=== PATIENT | male | born 1935 | race Caucasian/White ===

== ENCOUNTER → 2017-06-29 08:29 | Outpatient (CLI) | payer MEDICARE, SELFPAY ==
--- NOTE | 2017-06-29 08:35 | RAD_ITS ---
STUDY: X-RAY - ESOPHAGUS (BARIUM SWALLOW) WITH FLUOROSCOPY REASON FOR EXAM: Male, 82 years old. Dysphagia for solids. TECHNIQUE: 11 view(s) of the esophagus were obtained following swallowing of barium. FLUOROSCOPY TIME (if supplied): (0:36) minutes/seconds COMPARISON: None. FINDINGS: There is no demonstrated esophageal foreign body. There is no demonstrated stricture or mucosal abnormality. Normal gastroesophageal junction, without a demonstrated hiatal hernia. The patient ingest a 12 mm tablet of barium without any difficulty. There is mesial axial rotation of the stomach. There is atherosclerotic tortuosity of the aortic arch and descending thoracic aorta. Normal visualized pulmonary parenchyma. Normal visualized osseous structures of the thorax. RAD/Esophagus Only IMPRESSION: Normal plain film x-ray examination (barium swallow) of the esophagus. Electronically Signed: Samuel Brambila MD at 10:36 EDT Tel [phone], Service support ,
== END ==
PROVIDERS: Family Provider Student in an Organized Health Care Education/Training Program; PCP Student in an Organized Health Care Education/Training Program; Visit Provider Internal Medicine Gastroenterology
DX: K22.2 Esophageal obstruction (principal)
CPT/HCPCS: 74220

== ENCOUNTER 2019-09-05 10:10 | Observation (INO) | payer MEDICARE, SELFPAY ==
[2019-09-05] VITALS (16 sets, daily range): BP systolic 125–155; BP diastolic 84–134; PULSE 70–143; RESP 15–21; TEMP 36.4–36.8; O2SAT 94–98; BMI 28.5; BMI 28.3
--- NOTE | 2019-09-05 10:17 | NURSING ---
NO OLD EKGS
--- NOTE | 2019-09-05 10:18 | EKG12_ITS ---
Test Reason : Blood Pressure : / mmHG Vent. Rate : 140 BPM Atrial Rate : 156 BPM P-R Int : 000 ms QRS Dur : 140 ms QT Int : 340 ms P-R-T Axes : 000 090 -36 degrees QTc Int : 519 ms Atrial fibrillation with rapid ventricular response Right bundle branch block Possible Inferior infarct , age undetermined Abnormal ECG Confirmed by KALE GALDAMEZ, SVETA ([id number]), assistant production editor KYLEE BOSE ([id number]) on 09/10/2019 11:05:39 AM Referred By: TIOM Confirmed By:SVETA HENLEY MD
[2019-09-05] MEDS: Aspirin 81 MG TAB.CHEW 324 MG PO (10:26)
[2019-09-05] MEDS: dilTIAZem 25 MG/5 ML Vial 20 MG IV BOLUS (10:26)
[2019-09-05 10:27] LABS: Absolute Lymphocyte Count 1.68 X10^3/uL (0.83-4.51); Absolute Neutrophil Count 5.5 X10^3/uL (2.0-7.7); Basophil# 0.05 X10^3/uL; Basophil% 0.6 % (0-1); Eosinophil# 0.28 X10^3/uL; Eosinophils% 3.3 % (0-5); Hematocrit 49.4 % (40-54); Hemoglobin 16.9 g/dL (13.0-16.5); Lymphocyte # 1.68 X10^3/ul (4.0); Lymphocyte % 19.9 % (19-41); Mean Corp Hgb Conc 34.2 g/dL (32-36); Mean Corpuscular Volume 87.6 fL (80-94); Monocyte# 0.91 X10^3/uL; Monocyte% 10.8 % (0-10); NRBC Flagged by Analyzer 0 % (0-5); Neutrophil # 5.48 X10^3/uL (2.7-7.7); Platelet Count 222 K/mm3 (150-450); RBC Distribution Width CV 13.6 % (11.6-14.6); Red Blood Count 5.64 M/mm3 (4.6-6.2); White Blood Count 8.4 K/mm3 (4.4-11.0)
--- NOTE | 2019-09-05 10:35 | RAD_ITS ---
STUDY: X-RAY CHEST REASON FOR EXAM: Male, 84 years old. AFIB. PT STATES THAT HE NOTICED PALPITATIONS FOR A and quot; COUPLE OF EVENINGS and quot;. PT DX WITH and quot;VALLEY FEVER and quot; TECHNIQUE: Single AP portable view of the chest. COMPARISON: None. FINDINGS: EKG electrodes are seen. The lungs are clear and expanded. There is no demonstrated pleural abnormality. There is mild cardiac enlargement. Normal mediastinum and yesica. Normal visualized pulmonary arteries. Normal visualized aortic arch and descending thoracic aorta. There are diffuse degenerative changes of the visualized thoracic spine. There is degenerative osteoarthritis of the bilateral shoulders. Prior right rotator cuff surgery. There is no demonstrated abnormality of the visualized soft tissue structures of the upper abdomen. RAD/Chest 1 View (Portable) IMPRESSION: Mild cardiomegaly. Electronically Signed: Samuel Brambila, at 11:08 EDT , Service support ,
[2019-09-05 10:56] LABS: Anion Gap 5 (5-15); BUN 19 mg/dL (7-18); BUN/Creat Ratio 15.4 RATIO (10-20); Calcium,Total 9.6 mg/dL (8.5-10.1); Chloride 105 mmol/L (98-107); Creatinine, Serum 1.23 mg/dL (0.70-1.30); EST Glomerular Filtration Rate 60 mL/min (>60); Est Glom Filt Rate - Afr Amer 72 mL/min (>60); Estimated Creatinine Clearance 51.43 ml/min; Glucose 114 mg/dL (74-106); Magnesium 2.3 mg/dL (1.6-2.6); Potassium 4.2 mmol/L (3.5-5.1); Sodium Level 139 mmol/L (136-145); Thyroid Stim Hormone (TSH) 2.52 uIU/mL (0.358-3.74)
--- NOTE | 2019-09-05 11:46 | ED.VISSUMM ---
- ER Visit Summary Date of Service: 09/05/19 Chief Complaint: Atrial fibrillation History of Present Illness: The patient is a [address] Aguilar. 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 He was seen in the office today and found to have atrial fibrillation and sent to the emerge department for evaluation. Patient has never had this before. He denies any palpitations. He denies any chest pain or shortness of breath. Reports he has a chronic cough that is unchanged. Physical Examination: Vitals: Stable. Afebrile. General: Well-nourished and well-developed. Head: Normocephalic atraumatic. Neck: Supple, no lymphadenopathy. No JVD. Nontender. Cardiovascular: Tachycardic irregular rhythm. No murmurs. Respiratory: No respiratory distress. Clear to auscultation bilaterally. Abdominal: Soft, nontender, nondistended, normal bowel sounds. No guarding, rebound, or peritoneal signs. Back: Nontender. Extremities: Nontender, no edema. Skin: Normal color, no rash. Neurologic: Alert and oriented ?3. Cranial nerves II through XII are intact. Normal strength and sensation. Psych: Normal affect. Test Results: EKG is A. fib with right bundle branch block rate of 140. Troponin is negative. Chem-7 shows a BUN of 19 glucose 114. TSH 2.52. CBC shows a hemoglobin 16.9 monocytes of 11. Clinical Impression(s) from Imaging Studies Chest X-Ray 09/05/19 10:35 IMPRESSION: Mild cardiomegaly. Electronically Signed: Samuel Brambila, at 11:08 EDT , Service support , Emergency Department Course and Treatment: Patient was given aspirin p.o. He was given Cardizem IV. His rate has come down in the 70s and he is resting comfortably. Treatment Plan: Patient is discussed Dr. Mendoza. He will be admitted to the hospital for further evaluation treatment. Disposition: Admitted in improved condition. Impression: 1. Atrial fibrillation with RVR, new onset. 2. Critical care time 30 minutes. This note was generated with Kixeration software. It may contain incorrect words, spelling, and punctuation that were not noted in review of the chart prior to signing ED Disposition - Plan for ED Patient: Disposition: Acute Care Hospital [facility] [place] [facility] Referrals: Dipak Aguilar DO [Primary Care Provider] -
--- NOTE | 2019-09-05 13:01 | NURSING ---
PCU OBS NEW ONSET AFIB TERELETSKY
[2019-09-05] MEDS: Metoprolol Tartrate 50 MG Tablet PO ×3 (13:17→21:21)
--- NOTE | 2019-09-05 14:07 | ECHOD_ITS ---
Reason For Study: AFIB/FLUTTER Procedure This was a 2D Doppler, Color Flow transthoracic echocardiogram. Exam performed portable in patient room. Left Ventricle Normal LV size. The estimated ejection fraction is 65 %. Diastolic function is indeterminate. No regional wall motion abnormalities noted. Right Ventricle Normal RV size. Normal systolic function. Atria The left atrium is mildly enlarged. The right atrium is mildly enlarged. No doppler evidence for ASD. Mitral Valve There is no mitral valve stenosis. Trivial mitral valve insufficiency. Tricuspid Valve There is no tricuspid stenosis. Mild tricuspid valve insufficiency. Pulmonary artery systolic pressure is 40 mmHg. Aortic Valve Trisinus/trileaflet aortic valve. There is no aortic stenosis. No aortic valve insufficiency. Pulmonic Valve There is no pulmonic valvular stenosis. No pulmonic valve insufficiency. Great Vessels Normal aortic root. Pericardium/Pleural No pericardial effusion. MMode/2D Measurements & Calculations LVIDd: 4.5 cm IVSd: 1.5 cm Ao root diam: 3.5 cm LVIDs: 3.5 cm LVPWd: 1.4 cm RVDd: 3.4 cm FS: 23.8 % LAV(MOD-bp): 82.9 ml LA A4 area: 25.3 cm2 LA dimension(2D): 4.2 cm LAV(MOD-bp) Indexed: 37.4 ml/m2 LAV(MOD-sp2): 87.4 ml LAV(MOD-sp4): 78.3 ml RA A4 area: 19.5 cm2 Time Measurements MV dec time: 0.19 sec Doppler Measurements & Calculations MV E max swapna: 109.0 cm/sec Ao V2 max: 78.7 cm/sec LV V1 max: 74.7 cm/sec Ao max P.5 mmHg LV V1 max P.3 mmHg PA V2 max: 108.9 cm/sec TR max swapna: 275.9 cm/sec TR max P.5 mmHg Interpretation Summary Diastolic function is indeterminate. The left atrium is mildly enlarged. The right atrium is mildly enlarged. Trivial mitral valve insufficiency. Mild tricuspid valve insufficiency. The estimated ejection fraction is 65 %. Ordering Physician: Thien Mendoza Referring Physician: ALFA BORJA Performed By: Claudette Duncan, ANUPAMA, RVT
--- NOTE | 2019-09-05 14:45 | HP.PCM_ITS ---
Problem List (1) Atrial fibrillation with RVR Status: Acute (2) Histoplasmosis Status: Chronic (3) GERD (gastroesophageal reflux disease) Status: Chronic (4) History of skin cancer Status: Chronic (5) Solar keratosis Status: Chronic History of Present Illness Date of Admission: 09/05/19 Chief Complaint: abnormal heart rate The patient is a 84 year old M with pmhx of histoplasmosis, skin cancer, GERD, solar keratosis, who presented to the ER with irregular heart rate. The patient has been in his normal state of health the past two weeks however two days ago his apple watch read that he had irregular heart rate. It persisted today so he kvng to the ER. He was found to have Afib RVR rate in the 40s. He was given a bolus of IV cardizem and now his rate is now in the 70s however still afib. He has no history of A. fib. He has no history of heart disease. He had a stress test about 40 years ago that was negative. He has had no other cardiac work-up. He has no chest pain, pressure, tightness, heaviness, palpitations, racing heart. He says he has some chronic shortness of breath and chronic cough due to history of histoplasmosis that occurred about a year ago when he visited [place]. He does report a change in his taste and smell in the last 2 weeks noting specifically that everything tastes tinny. No fevers or chills, No PRINGLE, body aches, or fatigue, no nausea vomiting or diarrhea. Patient states he is otherwise been in normal state of health. [] Past Medical History Past Medical History (Chronic Problems): Chronic Problems Histoplasmosis (Chronic) GERD (gastroesophageal reflux disease) (Chronic) History of skin cancer (Chronic) Solar keratosis (Chronic) Burn scar (Chronic) Allergies No Known Allergies Allergy (Verified 10/11/13 20:26) Home Medications: Ambulatory Orders Medication Instructions Recorded Omeprazole [Prilosec] 40 mg PO DAILY 07/22/15 Albuterol Sulfate [Proair 1 puff PO Q6H 09/05/19 Respiclick] Budesonide/Formoterol 160/4.5 2 puff PO BID 09/05/19 [Symbicort 160/4.5 Mcg Inhaler (SP)] Fish Oil 1 tab PO DAILY 09/05/19 Multivitamin 1 tab PO QWEEK 09/05/19 Surgical History: total hip arthroplasty, tonsillectomy, - Psychiatric History: No pertinent psych hx Lives: Spouse/ Significant Other Smoking Status: Former smoker Tobacco Use: Cigarettes Alcohol: None Drugs: None - *Family History Maternal History Items: Cancer - breast Paternal History Items: Cancer - gi cancer Review of Systems Constitutional: Denies: Chills, Fever, Weakness, Weight Change, Fatigue Eyes: Denies: Blurred vision, Double vision, Vision Change HEENT: Reports: - - taste and smell change. Denies: Head Aches, Sinus Congestion, Sinus Drainage Cardiovascular: Denies: Chest Pain, Palpitations Respiratory: Reports: Cough - chronic. Denies: Shortness of Breath, Shortness of breath at rest, Sputum production, Wheezing Gastrointestinal: Denies: Abdominal Pain, Diarrhea, Nausea, Vomiting Genitourinary: Denies: Dysuria Musculoskeletal: Denies: Joint Pain, Joint Tenderness Skin: Denies: Rash, Wounds Neurological: Denies: Numbness, Tingling, Focal weakness Psychiatric: Denies: Anxiety, Depression, Homicidal Ideations, Suicidal Ideations Hematologic/ Lymphatic: Denies: Easy Bruising, Easy Bleeding VTE Information - Inpt Only VTE Present on Admission: No VTE Mechan Device Prophylaxis: None VTE Pharm Prophylaxis ordered?: Yes Patient Problems: Active and Suspected Problems Atrial fibrillation with RVR (Acute) - Physical Exam Vitals/I&O's: Vital Signs Temp Pulse Resp BP Pulse Ox 98.3 F 78 18 140/89 H 98 09/05/19 14:20 09/05/19 14:20 09/05/19 14:20 09/05/19 14:20 09/05/19 14:20 Oxygen Flow Rate (L/min) 2 Oxygen Delivery Method Room Air Weight: 214 lb 11.684 oz Body Mass Index (BMI) 28.3 General: Alert, Oriented x3, Cooperative HEENT: Atraumatic, PERRLA, EOMI, Normocephalic Neck: Supple, No JVD, Negative Carotid Bruits Lungs: Clear to auscultation, Normal air movement Cardiovascular: No murmurs, Irregular Rate Abdomen: Bowel Sounds Present, Soft, Non Tender Extremities: No edema, Capillary Refill Less than 3 Seconds Skin: No rashes, No breakdown Musculoskeletal: No Tenderness to Palpation of Joints or Extremities Neurological: Cranial nerves II-XII grossly intact Psych/Mental Status: Normal Affect, Appropriate, Alert and oriented to time, place, person, mood and affect Laboratory Results 09/05/19 10:18: WBC 8.4, RBC 5.64, Hgb 16.9 H, Hct 49.4, MCV 87.6, MCH 30.0, MCHC 34.2, RDW Std Deviation 43.0, RDW Coeff of Pollo 13.6, Plt Count 222, MPV 10.0, Immature Gran % (Auto) 0.400, Neut % (Auto) 65.0, Lymph % (Auto) 19.9, [place] % (Auto) 10.8 H, Eos % (Auto) 3.3, Baso % (Auto) 0.6, Absolute Neuts (auto) 5.5, Absolute Lymphs (auto) 1.68, Nucleated RBC % 0 09/05/19 10:18: Sodium 139, Potassium 4.2, Chloride 105, Carbon Dioxide 29.0, Anion Gap 5, BUN 19 H, Creatinine 1.23, Estim Creat Clear Calc 51.43, Est GFR (MDRD) Af Amer 72, Est GFR (MDRD) Non-Af 60, BUN/Creatinine Ratio 15.4, Glucose 114 H, Calcium 9.6, Magnesium 2.3, Troponin I < 0.015, TSH 2.52 Current Medications Acetaminophen (Tylenol) 650 mg PO Q6H PRN PRN PRN Reason: Pain Score 1-10/Temp > 100.7 F Albuterol Sulfate (Ventolin Aerosols) 2.5 mg INHALATION Q6HWA.RT [facility] Apixaban (Eliquis) 5 mg PO BID [facility] Budesonide (Pulmicort Aerosol) 0.5 mg INHALATION BID.RT [facility] Metoprolol Tartrate (Lopressor (Beta Lana)) 50 mg PO BID [facility] Pantoprazole Sodium (Protonix) 40 mg PO DAILY [facility] Sodium Chloride () 10 - 40 ml IV UD PRN PRN Reason: SALINE FLUSH Assessment/Plan All Active Problems Atrial fibrillation with RVR (Acute) Ulcer of right leg (Acute) 1. New onset afib rvr - asymptomatic, picked up by apple watch. rate controlled after cardizem bolus. Echo in AM. Continue metoprolol. tsh normal. troponin negative. Start eliquis. 2. change in taste/smell - chronic cough/sob from histoplasmosis. cxr neg for infection. screen for covid19 pending. 3. Hx skin cancer in remission, hx solar keratosis 4. hx histoplasmosis - chronic cough/sob. contracted in [place] continue symbicort. 5. GERD - ppi. DVT ppx: eliquis This patient was seen by Lowell Reddy PA-C under the supervision of Dr. Mendoza
--- NOTE | 2019-09-05 15:27 | CPS ---
pt decreased to 4lpm...98. nurse aware of change
[2019-09-05] MEDS: Albuterol 2.5 MG/3 ML VIAL.NEB. INHALATION (19:19)
[2019-09-05] MEDS: Budesonide Respules 0.5 MG/2 ML AMPUL.NEB. INHALATION (19:19)
[2019-09-05] MEDS: APIXABAN 5 MG TABLET PO (21:22)
[2019-09-06] VITALS (8 sets, daily range): BP systolic 111–135; BP diastolic 71–89; PULSE 78–115; RESP 14–18; TEMP 36.6–37.2; O2SAT 93–95
--- NOTE | 2019-09-06 03:21 | NURSING ---
Handoff report given, relinquished care of pt at this time.
--- NOTE | 2019-09-06 03:26 | NURSING ---
Handoff from rec'd from LUPE Arteaga. This Rn taking over care at this time. Alaina RN
--- NOTE | 2019-09-06 05:21 | EKG12_ITS ---
Test Reason : AM EKG Blood Pressure : / mmHG Vent. Rate : 096 BPM Atrial Rate : 110 BPM P-R Int : 000 ms QRS Dur : 140 ms QT Int : 380 ms P-R-T Axes : 000 078 000 degrees QTc Int : 480 ms Atrial fibrillation Right bundle branch block Abnormal ECG When compared with ECG of 05-SEP-2019 10:14, MANUAL COMPARISON REQUIRED, DATA IS UNCONFIRMED Confirmed by KALE GALDAMEZ, SVETA ([id number]), newspaper or periodical editor KYLEE BOSE ([id number]) on 09/10/2019 11:12:07 AM Referred By: SCOUT Confirmed By:SVETA HENLEY MD
[2019-09-06] MEDS: Budesonide Respules 0.5 MG/2 ML AMPUL.NEB. INHALATION (07:26)
[2019-09-06] MEDS: Albuterol 2.5 MG/3 ML VIAL.NEB. INHALATION (07:26)
[2019-09-06] MEDS: Pantoprazole Sodium 40 MG Tablet PO (09:14)
[2019-09-06] MEDS: APIXABAN 5 MG TABLET PO (09:14)
[2019-09-06] MEDS: Metoprolol Tartrate 50 MG Tablet PO (09:14)
--- NOTE | 2019-09-06 11:18 | PCM.DC ---
- Discharge Diagnoses Current Active Problems: Current Active and Chronic Problems Histoplasmosis (Chronic) Atrial fibrillation with RVR (Acute) You will use the following diet at home:: Cardiac Discharge Activity: Return to Normal Activity Call your doctor if you observe: Shortness of breath, Dizziness, Fainting spells, Chest pain, Increased palpitations (irregular heartbeat) Allergies/Adverse Reactions: Allergies No Known Allergies Allergy (Verified 10/11/13 20:26) Medications to take at Discharge Omeprazole [Prilosec] 40 mg PO DAILY 07/22/15 Albuterol Sulfate [Proair Respiclick] 1 puff PO Q6H 09/05/19 Budesonide/Formoterol 160/4.5 [Symbicort 160/4.5 Mcg Inhaler (SP)] 2 puff PO BID 09/05/19 Fish Oil 1 tab PO DAILY 09/05/19 Multivitamin 1 tab PO QWEEK 09/05/19 Apixaban [Eliquis] 5 mg PO BID tablet 09/06/19 Metoprolol Tartrate [Lopressor (beta mattie)] 50 mg PO BID #60 tab 09/06/19 The following prescriptions were given: Metoprolol Tartrate [Lopressor (beta mattie)] 50 mg PO BID #60 tab Transmission Status: Pending to [id number] Primary Care Physician: Dipak Aguilar DO [Primary Care Provider] - Please follow up with your Primary Care Physician in: 1 Week Test Results: Test results from this visit will be discussed in further detail at your follow-up appointment, if applicable. Please Follow Up With: Sue Anderson MD When: 3 Weeks Proposed Discharge Date: 09/06/19
--- NOTE | 2019-09-06 11:21 | PCM.DC.SUM ---
Discharge Date and Diagnosis Date of Admission: 09/05/19 Date of Discharge: 09/06/19 - Primary Discharge Diagnosis Acute Problems: Active Problems 1. New onset atrial fibrillation with RVR 2. History of skin cancer, in remission 3. History of histoplasmosis 4. GERD 5. Pulmonary hypertension - Secondary Discharge Diagnosis Chronic Problems: Chronic Problems Histoplasmosis (Chronic) GERD (gastroesophageal reflux disease) (Chronic) History of skin cancer (Chronic) Solar keratosis (Chronic) Burn scar (Chronic) Hospital Course and Treatment Imaging Results: Diagnostic Data Chest X-Ray 09/05/19 10:35 IMPRESSION: Mild cardiomegaly. Electronically Signed: Samuel Brambila, at 11:08 EDT , Service support , Operations: None Procedures: 2-D Echocardiogram Summary of Care Provided: The patient is a 84 year old M admitted 09/05/2019 due to abnormal heart rate. 1. New onset atrial fibrillation with RVR-patient asymptomatic. hereO notified patient of abnormal heart rhythm and patient went to PCP who referred him to ER. He denies chest pain, shortness of breath. Troponin negative. Echocardiogram demonstrates an EF of 65%, PA pressure 40, mild tricuspid valve insufficiency. Initiated on Eliquis 5 mg twice daily. Heart rate controlled on metoprolol 50 mg twice daily. Of note, patient did mention altered taste/smell during admission and COVID test completed which was negative. Follow-up with cardiology in 3 weeks. 2. History of skin cancer, in remission-history of solar keratosis. 3. History of histoplasmosis-chronic cough. Continue Symbicort regimen. 4. GERD-continue home omeprazole regimen. 5. Pulmonary hypertension- PA pressure per echo 40. Outpatient follow up. Patient seen and examined prior to discharge. Physical assessment as noted below. Patient is stable for discharge with follow up recommendations as noted above. This patient was seen by STUART Reilly under the supervision of Dr. Mendoza. - Physical Exam Vitals/I&O's: Vital Signs Temp Pulse Resp BP Pulse Ox 98.1 F 97 14 111/71 93 09/06/19 09:07 09/06/19 09:14 09/06/19 09:07 09/06/19 09:14 09/06/19 09:07 Oxygen Flow Rate (L/min) 7 Oxygen Delivery Method Room Air Weight: 214 lb 11.684 oz Body Mass Index (BMI) 28.3 Intake and Output for Last 24 Hours 09/04/19 09/05/19 09/06/19 23:59 23:59 23:59 Intake Total 240 / 240 200 / 200 Balance 240 / 240 200 / 200 General: Alert, Oriented x3, Cooperative HEENT: Atraumatic, PERRLA, EOMI, Normocephalic Neck: Supple, No JVD, Negative Carotid Bruits Lungs: Clear to auscultation, Normal air movement Cardiovascular: - - Atrial fibrillation, rate controlled Abdomen: Bowel Sounds Present, Soft, Non Tender, Non-Distended Extremities: No clubbing, No cyanosis, No edema, Capillary Refill Less than 3 Seconds Skin: No rashes, No breakdown Musculoskeletal: No Tenderness to Palpation of Joints or Extremities Neurological: Cranial nerves II-XII grossly intact, Neuro grossly intact Psych/Mental Status: Normal Affect, Appropriate Laboratory Results 09/05/19 14:55: COVID-19 (ELOY) Not Detected Current Medications Acetaminophen (Tylenol) 650 mg PO Q6H PRN PRN PRN Reason: Pain Score 1-10/Temp > 100.7 F Albuterol Sulfate (Ventolin Aerosols) 2.5 mg INHALATION Q6HWA.RT [facility] Last Admin: 09/06/19 07:26 Dose: 2.5 mg Documented by: Apixaban (Eliquis) 5 mg PO BID [facility] Last Admin: 09/06/19 09:14 Dose: 5 mg Documented by: Budesonide (Pulmicort Aerosol) 0.5 mg INHALATION BID.RT [facility] Last Admin: 09/06/19 07:26 Dose: 0.5 mg Documented by: Metoprolol Tartrate (Lopressor (Beta Lana)) 50 mg PO BID [facility] Last Admin: 09/06/19 09:14 Dose: 50 mg Documented by: Pantoprazole Sodium (Protonix) 40 mg PO DAILY [facility] Last Admin: 09/06/19 09:14 Dose: 40 mg Documented by: Sodium Chloride () 10 - 40 ml IV UD PRN PRN Reason: SALINE FLUSH Discharge Diet: No Restrictions Discharge Activity: Return to Normal Activity Call your doctor if you observe: Shortness of breath, Dizziness, Fainting spells, Chest pain, Increased palpitations (irregular heartbeat) Home Medications: Medications to take at Discharge Omeprazole [Prilosec] 40 mg PO DAILY 07/22/15 Albuterol Sulfate [Proair Respiclick] 1 puff PO Q6H 09/05/19 Budesonide/Formoterol 160/4.5 [Symbicort 160/4.5 Mcg Inhaler (SP)] 2 puff PO BID 09/05/19 Fish Oil 1 tab PO DAILY 09/05/19 Multivitamin 1 tab PO QWEEK 09/05/19 Apixaban [Eliquis] 5 mg PO BID tablet 09/06/19 Metoprolol Tartrate [Lopressor (beta lana)] 50 mg PO BID #60 tab 09/06/19 Following Prescrptions Were Given to Patient: Metoprolol Tartrate [Lopressor (beta lana)] 50 mg PO BID #60 tab Transmission Status: Pending to [id number] Primary Care Physician: Dipak Aguilar DO [Primary Care Provider] - Please follow up with your Primary Care Physician in: 1 Week Please Follow Up With: Sue Anderson MD When: 3 Weeks Disposition: Home Minutes spent on discharge:: 35 Patient Condition:: Stable Medical Necessity - Tobacco Use Smoking Status: Former smoker Tobacco Use: Cigarettes Meaningful Use Info Meaningful Use Diagnoses (Choose all that apply): None applicable
--- NOTE | 2019-09-06 12:26 | PHA.DC.MC ---
Pharmacy Service has performed discharge medication reconciliation and counseling for this patient. 1. APIXABAN 5MG PO BID 2. METOPROLOL TARTRATE 50MG PO BID The patient's discharge medication list was reviewed for discrepancies and discrepancies were resolved. Home Medications Omeprazole [Prilosec] 40 mg PO DAILY 07/22/15 Albuterol Sulfate [Proair Respiclick] 1 puff PO Q6H 09/05/19 Budesonide/Formoterol 160/4.5 [Symbicort 160/4.5 Mcg Inhaler (SP)] 2 puff PO BID 09/05/19 Fish Oil 1 tab PO DAILY 09/05/19 Multivitamin 1 tab PO QWEEK 09/05/19 Apixaban [Eliquis] 5 mg PO BID tab 09/06/19 Metoprolol Tartrate [Lopressor (beta mattie)] 50 mg PO BID #60 tab 09/06/19 The patient was counseled on the following discharge medications and changes in medications for homegoing were reviewed. The Reason for Use, instructions for use, and potential side effects were reviewed for all new medications. The patient's questions regarding all of their medications were answered. The patient was able to verbally demonstrate an understanding of their discharge medications.
== END 2019-09-06 11:18 | disposition home or self-care (01) ==
LOC: ED 11:27 → PCU 09-06 06:18
PROVIDERS: Physician Assistant; Admitting Provider Internal Medicine; Emergency Provider Emergency Medicine; PCP Student in an Organized Health Care Education/Training Program; Visit Provider Internal Medicine
DX: I48.91 Unspecified atrial fibrillation (principal); I45.10 Unspecified right bundle-branch block; B39.9 Histoplasmosis, unspecified; K21.9 Gastro-esophageal reflux disease without esophagitis; I27.20 Pulmonary hypertension, unspecified; Z85.828 Personal history of other malignant neoplasm of skin; Z79.899 Other long term (current) drug therapy; Z79.51 Long term (current) use of inhaled steroids; Z87.891 Personal history of nicotine dependence
CPT/HCPCS: 71045; 80048; 83735; 84443; 84484; 85025; 87635; 93005; 93306; 94640; 96374; 97802; 99218; 99251; 99285; G2023; A4216; G0378; G0463; U0003

== ENCOUNTER 2023-09-30 12:29 | Observation (INO) | payer MEDICARE, SELFPAY ==
[2023-09-30] VITALS (8 sets, daily range): BP systolic 148–169; BP diastolic 104–120; PULSE 66–102; RESP 18–19; TEMP 36.3–36.9; O2SAT 94–98; BMI 27.8
--- NOTE | 2023-09-30 12:35 | EKG12_ITS ---
Test Reason : POSS STROKE Blood Pressure : / mmHG Vent. Rate : 077 BPM Atrial Rate : 000 BPM P-R Int : 000 ms QRS Dur : 146 ms QT Int : 404 ms P-R-T Axes : 000 059 -13 degrees QTc Int : 457 ms Atrial fibrillation Right bundle branch block Possible Inferior infarct , age undetermined Abnormal ECG Confirmed by MICHEL GALDAMEZ, SUNIL ([id number]), graphic editor MIGUEL STRAUSS ([id number]) on 10/03/2023 9:30:12 AM Referred By: Confirmed By:SOHA PEARSON MD
--- NOTE | 2023-09-30 12:35 | CT_ITS ---
We are attempting to reach an attending provider to discuss findings. An addendum with communication details will be sent when the communication is complete. EXAM: CT HEAD WITHOUT INTRAVENOUS CONTRAST CLINICAL INDICATION: Neuro deficit, acute, stroke suspected TECHNIQUE: Multiple axial images were obtained of the head without intravenous contrast. This CT exam was performed using one or more of the following dose reduction techniques: automated exposure control, adjustment of the mA and/or kV according to patient size, and/or use of iterative reconstruction technique. RADIATION DOSE: CTDIvol = 47.06 mGy, DLP = 943.26 mGy-cm COMPARISON: No relevant prior studies available. FINDINGS: BRAIN AND EXTRA-AXIAL SPACES: Hypodensities in the white matter of both cerebral hemispheres are chronic white matter ischemic changes. Moderate cerebral atrophy, central and cortical. This accounts for the disproportionate dilatation of the third and lateral ventricles. Normal cerebral aqueduct. Normal fourth ventricle. No intra- or extra-axial hemorrhage. No intracranial mass or mass effect. Posterior fossa structures are unremarkable. No hydrocephalus. Basal cisterns are patent. BONES/JOINTS: See above. SINUSES: Unremarkable as visualized. Clear. MASTOID AIR CELLS: Unremarkable. Clear. ORBITS: Visualized globes, extraocular muscles, optic nerves and retrobulbar fat appear unremarkable. CT/STROKE Brain/Head without Cont IMPRESSION: 1. No CT evidence of intracranial bleeding, acute ischemic infarct or acute intracranial abnormality at this time. 2. Total ASPECTS score: 10/10. 3. Chronic white matter ischemic changes in both cerebral hemispheres. Electronically Signed: Akira Robison MD at 12:47 EDT ,
--- NOTE | 2023-09-30 12:35 | CT_ITS ---
We are attempting to reach an attending provider to discuss findings. An addendum with communication details will be sent when the communication is complete. INDICATION: neuro deficit EXAMINATION: CTA HEAD AND CTA NECK TECHNIQUE: Noncontrast axial images were obtained of the brain previously. Subsequently, routine carotid CT angiogram protocol was performed without and with IV contrast. In addition, images were obtained of the [place]. NASCET criteria using the distal ICAs for comparison were used for evaluation of stenoses. 3D reconstructions were reviewed. The protocol utilizes one or more of the following dose reduction techniques: automated exposure control, adjustment of mA and/or kV according to patient size,and/or use of iterative reconstruction technique. IV Contrast dosage and agent: 75 mL of Isovue-370 COMPARISON: No relevant prior comparison study available FINDINGS: --CTA NECK: AORTIC ARCH AND BRANCHES: Normal anatomy, patent. RIGHT CCA: No occlusion, significant stenosis or dissection. RIGHT ICA: No occlusion, significant stenosis or dissection. Mild atherosclerotic calcification at the origin without flow-limiting stenosis. LEFT CCA: No occlusion, significant stenosis or dissection. LEFT ICA: No occlusion, significant stenosis or dissection. RIGHT VERTEBRAL ARTERY: No occlusion, significant stenosis or dissection. LEFT VERTEBRAL ARTERY: No occlusion, significant stenosis or dissection. NECK SOFT TISSUES: Left thyroid lobe hypoattenuating nodule measures 1.3 cm. No specific follow-up recommended. Mildly prominent mediastinal lymph nodes without pathologic enlargement.. OSSEOUS STRUCTURES: Multilevel degenerative change of the cervical spine. --CTA HEAD: --Anterior circulation: ICAs: No significant stenosis at the intracranial/visualized segments. ACAs: No significant stenosis at the visualized segments. ACOM: Present. MCAs: No significant stenosis at the visualized segments. --Posterior circulation: PCOMs: Patent, diminutive on the right. dial screw assembler: No significant stenosis at the visualized segments. BASILAR ARTERY: No significant stenosis. VERTEBRAL ARTERIES: No significant stenosis at the intradural/visualized segments.
--- NOTE | 2023-09-30 12:40 | ED.RN ---
STROKE ALERT CALLED AT 1226, NO DR CAME OUT. DR. VALIENTE WENT THROUGH TRIAGE AT 1236.
[2023-09-30 12:46] LABS: Absolute Lymphocyte Count 1.55 X10^3/uL (0.83-4.51); Absolute Neutrophil Count 7.7 X10^3/uL (2.0-7.7); Basophil# 0.09 X10^3/uL; Basophil% 0.8 % (0-1); Eosinophil# 0.24 X10^3/uL; Eosinophils% 2.3 % (0-5); Hematocrit 50.2 % (40-54); Hemoglobin 16.4 g/dL (13.0-16.5); Lymphocyte # 1.55 X10^3/ul (0.83-4.51); Lymphocyte % 14.6 % (19-41); Mean Corp Hgb Conc 32.7 g/dL (32-36); Mean Corpuscular Hgb 29.1 pg (27.0-32.0); Monocyte# 0.93 X10^3/uL; Monocyte% 8.8 % (0-10); NRBC Flagged by Analyzer 0 % (0-5); Neutrophil # 7.69 X10^3/uL (2.7-7.7); Neutrophil % 72.5 % (47-70); Platelet Count 198 K/mm3 (150-450); RBC Distribution Width CV 14.7 % (11.6-14.6); RBC Distribution Width SD 47.5 fl (35.1-43.9); Red Blood Count 5.64 M/mm3 (4.6-6.2); White Blood Count 10.6 K/mm3 (4.4-11.0)
[2023-09-30 12:54] LABS: International Normalized Ratio 1.7; Prothrombin Time (Protime)PT. 19.5 SECONDS (11.7-14.9)
[2023-09-30 12:55] LABS: Partial Thromboplast Time 48.4 Seconds (24.1-36.2)
[2023-09-30 13:08] LABS: Anion Gap 4 (5-15); BUN 25 mg/dL (7-18); BUN/Creat Ratio 15.2 RATIO (10-20); Calcium,Total 10.3 mg/dL (8.5-10.1); Chloride 105 mmol/L (98-107); Creatinine, Serum 1.64 mg/dL (0.70-1.30); EST Glomerular Filtration Rate 44 mL/min (>60); Est Glom Filt Rate - Afr Amer 53 mL/min (>60); Estimated Creatinine Clearance 37.63 ml/min; Glucose 148 mg/dL (74-106); Potassium 4.2 mmol/L (3.5-5.1); Sodium Level 140 mmol/L (136-145); Troponin-I HS 20 pg/mL (3.0-78.0)
--- NOTE | 2023-09-30 13:12 | EDS_ITS ---
HPI History of Present Illness Chief Complaint: Stroke Alert Detail of Chief Complaint: Problem expressing self and identifying objects Informant: patient Onset/Context/Timing Onset: Today (1215) Context: Sudden Onset Timing: Intermittent (When I examined patient in the radiology suite, CT table his symptoms had resolved) Quality and Location: Positive for Expressive Aphasia Current Severity: Gone Maximum Severity: Moderate Worsened by: Nothing Relieved by: Not applicable Associated Symptoms Associated Symptoms: Negative for Headache, Nausea, Vomiting or Chest Pain Narrative Narrative: Patient is a 88-year-old male with history of hypertension, chronic A-fib on Eliquis, who presents with difficulty expressing himself. This started at 1215. Patient denies headache, visual, ocular auditory symptoms. Patient denies cardiac or respiratory symptoms. Patient denies paresthesia, anesthesia or weakness of his upper or lower extremities. Patient denies problems with coordination or balance. Prior similar symptoms: No Recent Illness/Hospitalization: No PFSH PFSH Allergy/AdvReac Type Severity Reaction Status Date / Time No Known Allergies Allergy Verified 09/30/23 13:12 Social History (Updated 09/30/23 @ 13:[address] Sukhdev Mark MD) household members: spouse Smoking Status: Never smoker ROS ROS ED Constitutional Constitutional ED: Denies chills, fever(s), subjective or sweats Eyes Eyes: Denies blurry vision or change in vision ENT ENT ED: Denies ear pain, rhinorrhea or sore throat Cardiovascular Cardiovascular: Denies chest pain, palpitations or racing heartbeat Respiratory/Chest Respiratory/Chest: Denies cough, dyspnea or dyspnea on exertion Gastrointestinal Gastrointestinal: Denies abdominal pain, nausea or vomiting Genitourinary Genitourinary ED: Denies dysuria, hematuria or urinary frequency Musculoskeletal Musculoskeletal: Denies back pain or neck pain Integumentary Denies rash Neurologic Neurologic: Denies headache(s), paresthesias or weakness Hematologic/Lymphatic Hematologic/Lymphatic: Denies easy bleeding or easy bruising EXAM Physical Exam Const Vital Signs: 09/30/23 12:31 09/30/23 12:35 09/30/23 12:35 Temperature 98 F Temperature Source Temporal Pulse Rate 102 H Respiratory Rate 18 Blood Pressure 169/112 H Blood Pressure Mean 131 Pulse Ox 95 95 Oxygen Delivery Method Room Air Room Air 09/30/23 13:05 Temperature Temperature Source Pulse Rate 94 Respiratory Rate 19 H Blood Pressure 150/120 H Blood Pressure Mean 130 Pulse Ox 95 Oxygen Delivery Method Room Air Positive well nourished and well developed General Appearance ED: well developed and NAD HEENT Reports moist mucous membranes atraumatic Eyes PERRL and EOMs intact bilaterally General Eye ED: Negative for pale conjunctiva or scleral icterus Neck no lymphadenopathy, supple and no JVD Chest Wall inspection of chest normal and palpation of chest normal Resp normal respiratory effort and clear to auscultation bilaterally Cardio no murmurs Rate: regular rate Rhythm: abnormal rhythm irregularly irregular GI normal to inspection, nondistended, normoactive bowel sounds, soft to palpation, non-tender, non-distended and no masses Back/Spine no CVA tenderness Extremity Negative for normal to inspection Extremity Narrative: Patient has scar on her right lower extremity due to prior injury. Neuro oriented x3, CN's II-XII intact bilaterally and no sensory deficits noted [place] Coma Scale: document GCS findings Spontaneous Obeys Commands Oriented 15 Sensorium / Orientation: alert Motor Exam: strength 5/5 throughout Psych mental status grossly normal Skin no wounds General Skin Exam: Negative for jaundice Lesions: no lesions Rashes: no rashes NIHSS NIHSS Initial: 1a Level of Consciousness: 0 1b LOC Questions (Score 2 if aphasic/stupor): 0 1c LOC Commands (Only score 1st attempt): 0 2 Best Gaze (If aphasic, use reflexive mvmts.): 0 3 Visual: 0 4 Facial Palsy: 0 5 Motor Arm Right (UN = amputation/fusion): 0 5 Motor Arm Left: 0 6 Motor Leg Right: 0 6 Motor Leg Left: 0 7 Limb ataxia (Only + if out of proportion): 0 8 Sensory (Aphasia/stupor=0 or 1, coma=2): 0 9 Best Language: 0 10 Dysarthria (mute, coma=2, intubated=UN): 0 11 Extinction and Inattention (only scored if +): 0 Total Score: 0 MDM MDM MDM Narrative Medical decision making narrative: Differential diagnosis would include TIA, stroke, intracranial bleed, conversion reaction. Stroke order set was initiated. History & Record Review Discussion w/independent historian: EMS personnel and Family Additional record(s) reviewed:: Prior ED visit and Prior labs Lab Data Attestation: I reviewed the patient's lab results. Lab results narrative: CBC is unremarkable. Electrolyte panel is unremarkable. PT and PTT are elevated due to Eliquis. Troponin is normal. Labs: Laboratory Results - last 24 hr 09/30/23 12:35 WBC 10.6 RBC 5.64 Hgb 16.4 Hct 50.2 MCV 89.0 MCH 29.1 MCHC 32.7 RDW Std Deviation 47.5 H RDW Coeff of Pollo 14.7 H Plt Count 198 MPV 10.0 Immature Gran % (Auto) 1.000 H Neut % (Auto) 72.5 H Lymph % (Auto) 14.6 L [place] % (Auto) 8.8 Eos % (Auto) 2.3 Baso % (Auto) 0.8 Absolute Neuts (auto) 7.7 Absolute Lymphs (auto) 1.55 Nucleated RBC % 0 PT 19.5 H INR 1.7 APTT 48.4 H Sodium 140 Potassium 4.2 Chloride 105 Carbon Dioxide 31.0 Anion Gap 4 L BUN 25 H Creatinine 1.64 H Estim Creat Clear Calc 37.63 Est GFR (MDRD) Af Amer 53 L Est GFR (MDRD) Non-Af 44 L BUN/Creatinine Ratio 15.2 Glucose 148 H Calcium 10.3 H Troponin I High Sens 20 Radiography Chest X-Ray - ED: 1 View and Read by ED Physician (No acute abnormality. Lung parenchyma is normal. Cardiac silhouette and size normal. [place] normal.) Diagnostic Testing: Clinical Impression(s) from Imaging Studies Brain CT 09/30/23 12:[address]: [address] evidence of intracranial bleeding, acute ischemic infarct or acute intracranial abnormality at this time. 2. Total ASPECTS score: 10/10. 3. Chronic white matter ischemic changes in both cerebral hemispheres. Electronically Signed: Akira Robison MD at 12:47 EDT , ADDENDUM: 09/30/23 8134 IMPRESSION: 1. No CT evidence of intracranial bleeding, acute ischemic infarct or acute intracranial abnormality at this time. 2. Total ASPECTS score: 10/10. 3. Chronic white matter ischemic changes in both cerebral hemispheres. N.B. : The above Results were Read Back by Akira Robison MD to Sukhdev Mark MD, and understanding confirmed on 09/30/2023 12:48:50 (ET). Electronically Signed: Akira Robison MD at 12:47 EDT , Head/Neck CTA 09/30/23 12:35 IMPRESSION: No large vessel occlusion or flow-limiting stenosis. Electronically Signed: Ricardo Jackson MD at 13:18 EDT , EKG Initial EKG: Attestation: I personally reviewed and interpreted this EKG as follows: Interpretation: Atrial Fibrillation (Rate is 77. There is evidence of right bundle branch block. QRS duration is prolonged at 146 ms. QT duration is 404 ms. [place] is normal. There is no acute ischemic changes noted) Management Discussion w/another healthcare provider: Hospitalist (Spoke to Dr. North. Dr. Solano was made aware the patient was registered incorrectly and he was given his old medical record number for him to look up his prior records.), Pet Crematory Worker (The [facility] neurologist Dr. Arias recommended stroke workup. We agree patient had expressive aphasia due to a TIA.) and Radiologist Stroke Documentation Questions Stroke Team Activated: Yes Reviewed Inclusion/Exclusion criteria: Yes IV Thrombolytic Administered: No No contraindications from thrombolytic administration: No Discharge Plan Dx/Rx/DC Orders Clinical Impression: Expressive aphasia, Brain TIA, Chronic a-fib, Anticoagulant long-term use, Elevated blood pressure reading with diagnosis of hypertension Disposition Disposition: Acute Care Hospital [facility]
--- NOTE | 2023-09-30 13:21 | PCM.HP.STD ---
HPI - General General Date of Admission: 09/30/23 Date of Service: 09/30/23 Chief Complaint: Strokelike symptoms with expressive aphasia, worsening shortness of breath with exertion HPI Narrative TAZ FOSTER, is a 88 M who presented to [facility] ED on 09/30/2023 with expressive aphasia. Stroke alert was called on arrival. CT brain was unremarkable. CTA head/neck showed no large vessel occlusion or flow-limiting stenosis. Was noted to have improving expressive aphasia per ED physician after scans. Teleneurology saw the patient and highest concern was for TIA, recommended admission for further workup. Hospitalist was then contacted for admission. Notably, patient had new chart here created in error, has previous chart under . I saw the patient at bedside in the ED, and daughter present. Patient was sitting up fairly comfortably in bed, conversing normally, in no acute distress. He did not have any expressive aphasia during our encounter. Patient and family note that he has never had an episode like this before. Denies any numbness/tingling or weakness in his extremities with this episode. Denies any vision changes. Patient and note that they live 6 months of the year in [place] and 6 months here. Patient reports worsening shortness of breath with exertion over the past 6 months or so. He follows with a shell trim tool setter in [place] and a senior maintenance mechanic here with the [facility]. Has history of A-fib with RVR and is on Eliquis for this. Is on rate control with Lopressor 50 mg twice daily and denies any palpitations. Per family, recently saw the senior maintenance mechanic and stress test was recommended, and this is scheduled in about 1 week. Patient and family note that PFTs done with shell trim tool setter showed that he has some degree of COPD due to remote history of smoking and possible prior workplace exposures. He was prescribed a long-acting Trelegy inhaler and albuterol inhaler as needed. Patient noted he has not used the Trelegy inhaler in many months and he did not like using the albuterol inhaler so he does not use this either. Patient denies any chest pain with exertion. He currently denies any chest pain or shortness of breath. Denies any lower extremity swelling. No other acute concerns at this time. PFSH Home Medications ?Medication ?Instructions ?Recorded ?Last Taken ?Type Lactobacillus acidophilus 10 10,000 mmu cells PO DAILY 09/30/23 09/30/23 History billion cell capsule (Probiotic) apixaban 5 mg tablet (Eliquis) 5 mg PO BID 09/30/23 09/30/23 History calcium carbonate 600 mg-vitamin 1 tab PO DAILY 09/30/23 09/30/23 History D3 10 mcg (400 unit) tablet fluticasone fur. 200 mcg-umeclid 1 ea inhalation DAILY 09/30/23 09/30/23 History 62.5 mcg-vilant 25 mcg inhalat.powder (Trelegy Ellipta) metoprolol tartrate 50 mg tablet 50 mg PO BID 09/30/23 09/30/23 History multivitamin (Daily Multi-Vitamin 1 tab PO DAILY 09/30/23 09/30/23 History tablet) omeprazole 20 mg capsule,delayed 20 mg PO DAILY 09/30/23 09/30/23 History release Allergy/AdvReac Type Severity Reaction Status Date / Time No Known Allergies Allergy Verified 09/30/23 13:12 Social History (Updated 09/30/23 @ 13:[address] Sukhdev Mark MD) household members: spouse Smoking Status: Former smoker ROS Constitutional Constitutional: Denies chills, fatigue, fever(s) or weakness Eyes Eyes: Denies change in vision Cardiovascular Cardiovascular: Reports dyspnea on exertion; Denies chest pain, edema, lightheadedness, palpitations or rapid heart rate Respiratory/Chest Respiratory/Chest: Denies cough, shortness of breath at rest or wheezing Gastrointestinal Gastrointestinal: Denies abdominal pain Genitourinary Genitourinary: Denies dysuria Musculoskeletal Musculoskeletal: Denies arthralgias or myalgias Neurologic Neurologic: Denies dizziness, focal weakness or headache(s) Vital Signs Vital Signs Vital Signs: 09/30/23 12:31 09/30/23 12:35 09/30/23 12:35 Temperature 98 F Temperature Source Temporal Pulse Rate 102 H Respiratory Rate 18 Blood Pressure 169/112 H Blood Pressure Mean 131 Pulse Ox 95 95 Oxygen Delivery Method Room Air Room Air 09/30/23 13:05 Temperature Temperature Source Pulse Rate 94 Respiratory Rate 19 H Blood Pressure 150/120 H Blood Pressure Mean 130 Pulse Ox 95 Oxygen Delivery Method Room Air Weight Weight: 93.2 kg Body Mass Index (BMI) 27.8 Physical Exam Const alert, oriented x3, no apparent distress and average body habitus Constitutional Narrative: Elderly male, mildly fatigued appearing, otherwise sitting up comfortably in bed, conversing normally, in no acute distress. General Appearance: cooperative and comfortable HEENT normocephalic, head/scalp atraumatic, hearing grossly normal bilaterally and nasal mucous membranes and turbinates normal Eyes PERRL, EOMs intact bilaterally and conjunctivae normal Neck full ROM Chest inspection of chest normal Resp normal respiratory effort, normal air movement, no use of accessory muscles and clear to auscultation bilaterally Cardio no murmurs and peripheral pulses 2+ throughout Cardio Narrative: A-fib, rate controlled. GI normal to inspection, nondistended, normoactive bowel sounds, soft to palpation, non-tender and non-distended Back/Spine normal ROM Extremity normal to inspection, full ROM and no pedal edema Skin no rashes or lesions noted Neuro moves all extremities and no focal motor deficits Neuro Narrative: No expressive aphasia noted. Alert to person place and time. Speech: speech normal Psych mental status grossly normal Results Lab / Micro Data 09/30/23 12:35 09/30/23 12:35 Labs: Laboratory Results - last 24 hr 09/30/23 12:35: WBC 10.6, RBC 5.64, Hgb 16.4, Hct 50.2, MCV 89.0, MCH 29.1, MCHC 32.7, RDW Std Deviation 47.5 H, RDW Coeff of Pollo 14.7 H, Plt Count 198, MPV 10.0, Immature Gran % (Auto) 1.000 H, Neut % (Auto) 72.5 H, Lymph % (Auto) 14.6 L, [place] % (Auto) 8.8, Eos % (Auto) 2.3, Baso % (Auto) 0.8, Absolute Neuts (auto) 7.7, Absolute Lymphs (auto) 1.55, Nucleated RBC % 0, PT 19.5 H, INR 1.7, APTT 48.4 H, Sodium 140, Potassium 4.2, Chloride 105, Carbon Dioxide 31.0, Anion Gap 4 L, BUN 25 H, Creatinine 1.64 H, Estim Creat Clear Calc 37.63, Est GFR (MDRD) Af Amer 53 L, Est GFR (MDRD) Non-Af 44 L, BUN/Creatinine Ratio 15.2, Glucose 148 H, Calcium 10.3 H, Troponin I High Sens 20 Imaging Radiology Impression Brain CT 09/30/23 12:35 IMPRESSION: 1. No CT evidence of intracranial bleeding, acute ischemic infarct or acute intracranial abnormality at this time. 2. Total ASPECTS score: 10/10. 3. Chronic white matter ischemic changes in both cerebral hemispheres. Electronically Signed: Akira Robison MD at 12:47 EDT , ADDENDUM: 09/30/23 1255 IMPRESSION: 1. No CT evidence of intracranial bleeding, acute ischemic infarct or acute intracranial abnormality at this time. 2. Total ASPECTS score: 10/10. 3. Chronic white matter ischemic changes in both cerebral hemispheres. N.B. : The above Results were Read Back by Akira Robison MD to Sukhdev Mark MD, and understanding confirmed on 09/30/2023 12:48:50 (ET). Electronically Signed: Akira Robison MD at 12:47 EDT , Head/Neck CTA 09/30/23 12:35 IMPRESSION: No large vessel occlusion or flow-limiting stenosis. Electronically Signed: Ricardo Jackson MD at 13:18 EDT , Assessment & Plan Assessment/Plan (1) Expressive aphasia: (2) Brain TIA: (3) Chronic a-fib: (4) Anticoagulant long-term use: (5) Dyspnea on exertion: PLAN: Plan Patient is an 88-year-old male who presented to [facility] ED on 09/30/2023 with strokelike symptoms. 1. Episode of expressive aphasia concerning for TIA, CVA rule out ? Admit under observation status to PCU. Neurology consulted. Presented with expressive aphasia that resolved after [address] brain and CTA head/neck unremarkable. Orders placed per stroke protocol order set. MRI brain without contrast and echo ordered. Lipid panel, A1c and TSH ordered. PT/OT/case management consulted. 2. Progressive worsening dyspnea on exertion, reported history of COPD ? Follows with [facility] cardiology and shell trim tool setter in [place]. Unable to view these records. Patient and family note seeing cardiology recently and outpatient stress test was ordered. Obtaining echo as noted above, and will obtain stress test while here for further evaluation. Patient reports noncompliance with home long-acting and short acting inhalers, states he does not like using them and gets no significant relief of symptoms with them. Recommended the patient use these going forward and we will order them while here. 3. Elevated serum creatinine ? Creatinine 1.65 on admit. Baseline unknown. Estimated GFR 44. Follow-up a.m. BMP and monitor urine output. 4. Chronic A-fib on Eliquis ? EKG on admit showed rate controlled A-fib. Patient reports compliance with home Eliquis. Continue Eliquis and home Lopressor. 5. GERD ? Continue home PPI. DVT prophylaxis: Not indicated, on Eliquis CODE STATUS: Full code, verified Expected disposition: Home, 1 to 2 days Total clinical time spent by myself addressing the patient's medical issues, reviewing all the data, and collaborating with patient's care team: 55 minutes. Charges/Coding Visit Charges Inpatient E&M: 27101 Init Hosp L2
--- NOTE | 2023-09-30 13:28 | ECHOCS_ITS ---
Reason For Study: TIA/STROKE Procedure This was a 2D Doppler, Color Flow transthoracic echocardiogram. The study was technically limited. Contrast injection was performed. Exam performed in department. Left Ventricle Normal LV size. The estimated ejection fraction is 70 %. Unable to assess diastolic dysfunction. No regional wall motion abnormalities noted. Right Ventricle Normal RV size. Normal systolic function. Atria The left atrium is mildly enlarged. Mitral Valve There is no mitral valve stenosis. Trivial mitral valve insufficiency. Tricuspid Valve There is no tricuspid stenosis. Trivial tricuspid valve insufficiency. Pulmonary artery systolic pressure is 40-45 mmHg. Aortic Valve Trisinus/trileaflet aortic valve. There is no aortic stenosis. No aortic valve insufficiency. Pulmonic Valve There is no pulmonic valvular stenosis. Trivial pulmonic valve insufficiency. Great Vessels Normal aortic root. Pericardium/Pleural No pericardial effusion. Medication Diluted definity 1ml given slow IV push to enhance endocardial definition. Performed a rapid injection of agitated mix of 9 cc saline and 1cc air to assess for atrial septal defect. MMode/2D Measurements & Calculations LVIDd: 4.7 cm IVSd: 1.5 cm Ao root diam: 3.7 cm LVIDs: 2.6 cm LVPWd: 1.3 cm FS: 43.9 % LAV(MOD-bp): 65.0 ml LVAd ap4: 24.1 cm2 SV(MOD-sp4): 53.3 ml LAV(MOD-bp) Indexed: 29.9 ml/m2 LVLd ap4: 6.9 cm LAV(MOD-sp2): 64.9 ml EDV(MOD-sp4): 67.5 ml LAV(MOD-sp4): 60.2 ml EDV(sp4-el): 71.3 ml LVAs ap4: 8.9 cm2 LVLs ap4: 5.1 cm ESV(MOD-sp4): 14.2 ml ESV(sp4-el): 13.2 ml EF(MOD-sp4): 79.0 % EF(sp4-el): 81.5 % SV(sp4-el): 58.1 ml LA A4 area: 21.8 cm2 LA dimension(2D): 4.7 cm RA A4 area: 18.0 cm2 Doppler Measurements & Calculations MV E max swapna: 75.8 cm/sec Ao V2 max: 96.7 cm/sec LV V1 max: 92.3 cm/sec Ao max P.8 mmHg LV V1 max P.4 mmHg Ao V2 mean: 63.0 cm/sec LV V1 mean P.8 mmHg Ao mean P.8 mmHg LV V1 mean: 60.3 cm/sec Ao V2 VTI: 17.5 cm LV V1 VTI: 16.5 cm AV (velocity ratio): 0.94 PA V2 max: 90.2 cm/sec TR max swapna: 292.4 cm/sec PA V2 mean: 65.3 cm/sec TR max P.2 mmHg ECHO/Echo Complete W/ Contrast Interpretation Summary The estimated ejection fraction is 70 %. Unable to assess diastolic dysfunction. The left atrium is mildly enlarged. Trivial mitral valve insufficiency. Ordering Physician: Vaibhav North Referring Physician: ALFA BORJA Performed By: Katy Bush RCS
--- NOTE | 2023-09-30 13:28 | MRI_ITS ---
STUDY: MRI BRAIN WITHOUT CONTRAST REASON FOR EXAM: Male, 88 years old. CVA r/o TECHNIQUE: Standardized multiplanar fat and water weighted pulse sequences were obtained. COMPARISON: None. FINDINGS: There is moderate cerebral atrophy with widening of the extra-axial spaces and ventricular dilatation. There are multiple white matter hyperintensities, distributed throughout the deep white matter tracts of the cerebral hemispheres, consistent with moderate chronic white matter ischemic changes. There is no evidence for recent intracranial ischemia or other cause of cytotoxic edema on diffusion weighted imaging (DWI). Normal bilateral basal ganglia. Normal thalami. There is no extra-axial fluid accumulation. Normal flow voids within the major intracranial circulation suggesting patency by spin echo criteria. Normal sella turcica, pituitary gland, infundibular stalk, optic chiasm and hypothalamus. Normal tectal plate and pineal gland. Normal midbrain, camryn and medulla. Normal cerebellum. Normal basal cisterns. Normal bilateral temporal bones. Normal bilateral internal auditory canals. No demonstrated orbital abnormality, within the constraints of a routine brain study. Normal visualized paranasal sinuses. Normal calvarium and skull base. Normal visualized soft tissue structures. Normal visualized upper cervical spine. MRI/Brain without Contrast IMPRESSION: Involutional changes of the brain, as described above. Electronically Signed: Cecil Faye MD at 16:15 EDT ,
--- NOTE | 2023-09-30 13:35 | RAD_ITS ---
INDICATION: Neuro deficit, acute, stroke suspected EXAMINATION/TECHNIQUE: X-RAY - XR Chest 1 View COMPARISON: No relevant prior comparison study available FINDINGS: LINES/DEVICES: Cardiac leads overlie the chest. LUNGS: The lungs are well expanded. Right midlung opacity peripherally. Linear left basilar atelectasis. No pleural effusion or pneumothorax. MEDIASTINUM AND CARDIOVASCULAR STRUCTURES: Cardiac silhouette not enlarged. Central airways and mediastinal contour are unremarkable. BONES AND SOFT TISSUES: No acute abnormality. RAD/Chest 1 View IMPRESSION: Linear left basilar atelectasis. Peripheral right mid lung opacity is nonspecific. This could be atelectatic or infectious/inflammatory. Electronically Signed: Ricardo Jackson MD at 13:52 EDT ,
[2023-09-30 14:08] LABS: Hemoglobin A1c 6.2 % (3.8-5.6)
[2023-09-30 14:19] LABS: Thyroid Stim Hormone (TSH) 2.17 uIU/mL (0.358-3.74)
[2023-09-30] MEDS: Atorvastatin Calcium 40 MG Tablet PO (21:46)
[2023-10-01 00:40] VITALS: BMI 27.8
[2023-10-01 04:25] VITALS: BP 163/112; PULSE 87; RESP 18; TEMP 35.8; O2SAT 96
[2023-10-01] MEDS: Aspirin 81 MG TAB.CHEW PO (05:25)
--- NOTE | 2023-10-01 05:55 | EKG12_ITS ---
Test Reason : AM EKG Blood Pressure : / mmHG Vent. Rate : 076 BPM Atrial Rate : 000 BPM P-R Int : 000 ms QRS Dur : 140 ms QT Int : 430 ms P-R-T Axes : 000 073 -24 degrees QTc Int : 483 ms Atrial fibrillation Right bundle branch block Abnormal ECG When compared with ECG of 30-SEP-2023 13:14, MANUAL COMPARISON REQUIRED, DATA IS UNCONFIRMED Confirmed by KALE GALDAMEZ, SVETA ([id number]), editorial project manager MIGUEL STRAUSS ([id number]) on 10/03/2023 2:18:16 PM Referred By: Confirmed By:SVETA HENLEY MD
[2023-10-01 06:00] LABS: Hematocrit 45.1 % (40-54); Mean Corp Hgb Conc 33.3 g/dL (32-36); Mean Corpuscular Hgb 29.5 pg (27.0-32.0); Mean Corpuscular Volume 88.6 fL (80-94); Mean Platelet Vol. 10.6 fl (6.2-12.0); Platelet Count 183 K/mm3 (150-450); RBC Distribution Width CV 14.6 % (11.6-14.6); RBC Distribution Width SD 46.5 fl (35.1-43.9); Red Blood Count 5.09 M/mm3 (4.6-6.2); White Blood Count 9.7 K/mm3 (4.4-11.0)
[2023-10-01 06:55] LABS: Anion Gap 4 (5-15); BUN 22 mg/dL (7-18); Calcium,Total 9.6 mg/dL (8.5-10.1); Chloride 106 mmol/L (98-107); Cholesterol 123 mg/dL (200); Creatinine, Serum 1.47 mg/dL (0.70-1.30); EST Glomerular Filtration Rate 48 mL/min (>60); Est Glom Filt Rate - Afr Amer 58 mL/min (>60); Estimated Creatinine Clearance 41.99 ml/min; Glucose 100 mg/dL (74-106); High Density Lipoprotein 35 mg/dL; Potassium 3.9 mmol/L (3.5-5.1); Sodium Level 140 mmol/L (136-145); Triglycerides 79 mg/dL; Very Low Density Lipoprotein 16 mg/dL (5-40)
[2023-10-01 06:57] LABS: Troponin-I HS 17 pg/mL (3.0-78.0)
[2023-10-01 07:03] VITALS: BP 163/112; PULSE 87
[2023-10-01] MEDS: hydrALAZINE 20 MG/ML Vial 10 MG IV (07:03)
--- NOTE | 2023-10-01 07:37 | PN.HOSP_ITS ---
Reason for Visit Reason for Visit: Diagnoses Transient cerebral ischemic attack, unspecified (09/30/23) Chronic atrial fibrillation, unspecified (09/30/23) Other forms of dyspnea (09/30/23) Aphasia (09/30/23) nursing home (current) use of anticoagulants (09/30/23) Objective Data Objective Data Vital Signs: Vital Signs Temp Pulse Resp BP Pulse Ox O2 Del Method 96.5 F L 87 18 163/112 H 96 Room Air 10/01/23 04:25 10/01/23 07:03 10/01/23 04:25 10/01/23 07:03 10/01/23 04:25 10/01/23 04:25 Oxygen Delivery Method Room Air Weight: 205 lb 8 oz Body Mass Index (BMI) 27.8 Intake & Output: Intake and Output for Last 24 Hours 09/29/23 09/30/23 10/01/23 23:59 23:59 23:59 Intake Total 240 / 240 0 / 0 Output Total 220 / 220 Balance 240 / 20 -220 / -220 Lab / Micro Data 10/01/23 04:50 10/01/23 04:50 Labs: Laboratory Results - last 24 hr 09/30/23 12:35: WBC 10.6, RBC 5.64, Hgb 16.4, Hct 50.2, MCV 89.0, MCH 29.1, MCHC 32.7, RDW Std Deviation 47.5 H, RDW Coeff of Pollo 14.7 H, Plt Count 198, MPV 10.0, Immature Gran % (Auto) 1.000 H, Neut % (Auto) 72.5 H, Lymph % (Auto) 14.6 L, [place] % (Auto) 8.8, Eos % (Auto) 2.3, Baso % (Auto) 0.8, Absolute Neuts (auto) 7.7, Absolute Lymphs (auto) 1.55, Nucleated RBC % 0, PT 19.5 H, INR 1.7, APTT 48.4 H, Sodium 140, Potassium 4.2, Chloride 105, Carbon Dioxide 31.0, Anion Gap 4 L, B UN 25 H, Creatinine 1.64 H, Estim Creat Clear Calc 37.63, Est GFR (MDRD) Af Amer 53 L, Est GFR (MDRD) Non-Af 44 L, BUN/Creatinine Ratio 15.2, Glucose 148 H, H emoglobin A1c 6.2 H, Calcium 10.3 H, Troponin I High Sens 20, TSH 2.17 10/01/23 04:50: WBC 9.7, RBC 5.09, Hgb 15.0, Hct 45.1, MCV 88.6, MCH 29.5, MCHC 33.3, RDW Std Deviation 46.5 H, RDW Coeff of Pollo 14.6, Plt Count 183, MPV 10.6, Sodium 140, Potassium 3.9, Chloride 106, Carbon Dioxide 30.0, Anion Gap 4 L, BUN 22 H, Creatinine 1.47 H, Estim Creat Clear Calc 41.99, Est GFR (MDRD) Af Amer 58 L, Est GFR (MDRD) Non-Af 48 L, BUN/Creatinine Ratio 15.0, Glucose 100, Calcium 9.6, Troponin I High Sens 17, Triglycerides 79, Cholesterol 123, LDL Cholesterol 72, VLDL Cholesterol 16, HDL Cholesterol 35 L Radiography Diagnostic Testing: Radiology Impression Brain CT 09/30/23 12:35 IMPRESSION: 1. No CT evidence of intracranial bleeding, acute ischemic infarct or acute intracranial abnormality at this time. 2. Total ASPECTS score: 10/10. 3. Chronic white matter ischemic changes in both cerebral hemispheres. Electronically Signed: Akira Robison MD at 12:47 EDT Reading Location ID and State: [address] [place] [address] , Service support , ADDENDUM: 09/30/23 1255 IMPRESSION: 1. No CT evidence of intracranial bleeding, acute ischemic infarct or acute intracranial abnormality at this time. 2. Total ASPECTS score: 10/10. 3. Chronic white matter ischemic changes in both cerebral hemispheres. N.B. : The above Results were Read Back by Akira Robison MD to Sukhdev Mark MD, and understanding confirmed on 09/30/2023 12:48:50 (ET). Electronically Signed: Akira Robison MD at 12:47 EDT Reading Location ID and State: [facility] / [place] , Service support , Head/Neck CTA 09/30/23 12:35 IMPRESSION: No large vessel occlusion or flow-limiting stenosis. Electronically Signed: Ricardo Jackson MD at 13:18 EDT , ADDENDUM: 09/30/23 1327 IMPRESSION: No large vessel occlusion or flow-limiting stenosis. N.B. : The above Results were Read Back by Ricardo Jackson MD to Sukhdev Mark MD, and understanding confirmed on 09/30/2023 13:20:25 (ET). Electronically Signed: Ricardo Jackson MD at 13:18 EDT , Brain MRI 09/30/23 13:28 IMPRESSION: Involutional changes of the brain, as described above. Electronically Signed: Cecil Faye MD at 16:15 EDT , Chest X-Ray 09/30/23 13:35 IMPRESSION: Linear left basilar atelectasis. Peripheral right mid lung opacity is nonspecific. This could be atelectatic or infectious/inflammatory. Electronically Signed: Ricardo Jackson MD at 13:52 EDT , Assessment & Plan Assessment/Plan (1) Expressive aphasia: (2) Brain TIA: (3) Chronic a-fib: (4) Anticoagulant long-term use: (5) Dyspnea on exertion: PLAN: Plan Patient is an 88-year-old male who presented to [facility] ED on 09/30/2023 with difficulty in expressing himself, started 1215 hrs. Denies headache, visual, other motor or sensory symptoms. Denies gait incoordination or balance 1. Episode of expressive aphasia concerning for TIA, CVA rule out ? Admit under observation status to PCU. Neurology consulted. Presented with expressive aphasia that resolved after [address] brain and CTA head/neck unremarkable. Orders placed per stroke protocol order set. MRI brain without contrast and echo ordered. Lipid panel, A1c and TSH ordered. PT/OT/case management consulted. MRI brain was done and shows chronic involutional changes; moderate cerebral atrophy but no acute intracranial abnormality. Fasting profile shows HDL decreased 35. A1c 6.2, consistent with prediabetes. TSH normal. 2. Progressive worsening dyspnea on exertion, reported history of COPD ? Follows with [facility] cardiology and stitcher standard machine in [place]. Unable to view these records. Patient and family note seeing cardiology recently and outpatient stress test was ordered. Obtaining echo as noted above, and will obtain stress test while here for further evaluation. Patient reports noncompliance with home long-acting and short acting inhalers, states he does not like using them and gets no significant relief of symptoms with them. Recommended the patient use these going forward and we will order them while here. 3. Elevated serum creatinine ? Creatinine 1.65 on admit. Baseline unknown. Estimated GFR 44. Follow-up a.m. BMP and monitor urine output. 4. Chronic A-fib on Eliquis ? EKG on admit showed rate controlled A-fib. Patient reports compliance with home Eliquis. Continue Eliquis and home Lopressor. 5. GERD ? Continue home PPI. DVT prophylaxis: Not indicated, on Eliquis CODE STATUS: Full code, verified Laboratory Results 09/30/23 12:35: WBC 10.6, RBC 5.64, Hgb 16.4, Hct 50.2, MCV 89.0, MCH 29.1, MCHC 32.7, RDW Std Deviation 47.5 H, RDW Coeff of Pollo 14.7 H, Plt Count 198, MPV 10.0, Immature Gran % (Auto) 1.000 H, Neut % (Auto) 72.5 H, Lymph % (Auto) 14.6 L, [place] % (Auto) 8.8, Eos % (Auto) 2.3, Baso % (Auto) 0.8, Absolute Neuts (auto) 7.7, Absolute Lymphs (auto) 1.55, Nucleated RBC % 0, PT 19.5 H, INR 1.7, APTT 48.4 H, Sodium 140, Potassium 4.2, Chloride 105, Carbon Dioxide 31.0, Anion Gap 4 L, BUN 25 H, Creatinine 1.64 H, Estim Creat Clear Calc 37.63, Est GFR (MDRD) Af Amer 53 L, Est GFR (MDRD) Non-Af 44 L, BUN/Creatinine Ratio 15.2, Glucose 148 H, H emoglobin A1c 6.2 H, Calcium 10.3 H, Troponin I High Sens 20, TSH 2.17 10/01/23 04:50: WBC 9.7, RBC 5.09, Hgb 15.0, Hct 45.1, MCV 88.6, MCH 29.5, MCHC 33.3, RDW Std Deviation 46.5 H, RDW Coeff of Pollo 14.6, Plt Count 183, MPV 10.6, Sodium 140, Potassium 3.9, Chloride 106, Carbon Dioxide 30.0, Anion Gap 4 L, BUN 22 H, Creatinine 1.47 H, Estim Creat Clear Calc 41.99, Est GFR (MDRD) Af Amer 58 L, Est GFR (MDRD) Non-Af 48 L, BUN/Creatinine Ratio 15.0, Glucose 100, Calcium 9.6, Troponin I High Sens 17, Triglycerides 79, Cholesterol 123, LDL Cholesterol 72, VLDL Cholesterol 16, HDL Cholesterol 35 L Clinical Impression(s) from Imaging Studies Brain CT 09/30/23 12:35 IMPRESSION: 1. No CT evidence of intracranial bleeding, acute ischemic infarct or acute intracranial abnormality at this time. 2. Total ASPECTS score: 10/10. 3. Chronic white matter ischemic changes in both cerebral hemispheres. Head/Neck CTA 09/30/23 12:35 IMPRESSION: No large vessel occlusion or flow-limiting stenosis. Brain MRI 09/30/23 13:28 IMPRESSION: Involutional changes of the brain, as described above. Chest X-Ray 09/30/23 13:35
--- NOTE | 2023-10-01 08:12 | STROKE.CONS ---
Assessment and Plan: Stroke Assessment/Plan TAZ FOSTER is a 88 M with a history of Afib on Eliquis who presents for evaluation of expressive aphasia. Not a TNK or IR candidate Neurological examination shows nonfocal examination. Neuroimaging shows MRI Brain: Negative, CTA: Negative, LDL: 72, HbA1C: 6.2. Likely had a TIA. Plan 1. Continue Eliquis 2. Statin to keep LDL <70 3. Control of stroke risk factors 4. PT, OT, speech evaluation Thanks for consult. Spent 35 min in evaluation of this patient HPI Consult Data Date of Consult: 10/01/23 HPI Narrative HPI Narrative: TAZ FOSTER, is a 88 M with a history of Afib on eliquis who presented to [facility] ED on 09/30/2023 with expressive aphasia. He could not get the words out. he is compliant with his medications. Stroke alert was called on arrival. CT brain was unremarkable. CTA head/neck showed no large vessel occlusion or flow-limiting stenosis. He was noted to have improving expressive aphasia per ED physician later. Was evaluated by teleneurology and highest concern was for TIA. Hospitalist was then contacted for admission. Notably, patient had new chart here created in error, has previous chart under . [facility] Home Medications ?Medication ?Instructions ?Recorded ?Last Taken ?Type Lactobacillus acidophilus 10 10,000 mmu cells PO DAILY 09/30/23 09/30/23 History billion cell capsule (Probiotic) apixaban 5 mg tablet (Eliquis) 5 mg PO BID 09/30/23 09/30/23 History calcium carbonate 600 mg-vitamin 1 tab PO DAILY 09/30/23 09/30/23 History D3 10 mcg (400 unit) tablet fluticasone fur. 200 mcg-umeclid 1 ea inhalation DAILY 09/30/23 09/30/23 History 62.5 mcg-vilant 25 mcg inhalat.powder (Trelegy Ellipta) metoprolol tartrate 50 mg tablet 50 mg PO BID 09/30/23 09/30/23 History multivitamin (Daily Multi-Vitamin 1 tab PO DAILY 09/30/23 09/30/23 History tablet) omeprazole 20 mg capsule,delayed 20 mg PO DAILY 09/30/23 09/30/23 History release Allergy/AdvReac Type Severity Reaction Status Date / Time No Known Allergies Allergy Verified 09/30/23 13:12 Social History (Updated 09/30/23 @ 13:[address] Sukhdev Mark MD) household members: spouse Smoking Status: Former smoker Vital Signs Vital Signs Vital Signs: 09/30/23 12:31 09/30/23 12:35 09/30/23 12:35 Temperature 98 F Temperature Source Temporal Pulse Rate 102 H Pulse Strength Respiratory Rate 18 Respiratory Effort Respiratory Depth Respiratory Pattern Blood Pressure 169/112 H Blood Pressure Mean 131 Blood Pressure Source Blood Pressure Position Blood Pressure Location Pulse Ox 95 95 Oxygen Delivery Method Room Air Room Air 09/30/23 13:05 09/30/23 13:32 09/30/23 14:40 Temperature 97.8 F 97.4 F L Temperature Source Temporal Pulse Rate 94 91 83 Pulse Strength Respiratory Rate 19 H 18 18 Respiratory Effort Respiratory Depth Respiratory Pattern Blood Pressure 150/120 H 164/104 H 157/115 H Blood Pressure Mean 130 124 129 Blood Pressure Source Monitor Blood Pressure Position Semi-Fowlers Blood Pressure Location Right Arm Pulse Ox 95 98 96 Oxygen Delivery Method Room Air Room Air 09/30/23 18:25 09/30/23 18:33 09/30/23 22:00 Temperature 98.5 F Temperature Source Temporal Pulse Rate 72 Pulse Strength Normal (2+) Respiratory Rate 18 Respiratory Effort Normal Non-Labored Respiratory Depth Normal Respiratory Pattern Normal Blood Pressure 148/110 H Blood Pressure Mean 122 Blood Pressure Source Monitor Blood Pressure Position Semi-Fowlers Blood Pressure Location Right Arm Pulse Ox 97 Oxygen Delivery Method Room Air Room Air 09/30/23 22:00 09/30/23 22:25 09/30/23 23:15 Temperature 97.3 F L Temperature Source Temporal Pulse Rate 66 Pulse Strength Respiratory Rate 18 Respiratory Effort Normal Respiratory Depth Normal Respiratory Pattern Normal Blood Pressure 152/108 H Blood Pressure Mean 122 Blood Pressure Source Monitor Blood Pressure Position Semi-Fowlers Blood Pressure Location Right Arm Pulse Ox 94 95 Oxygen Delivery Method Room Air Room Air Room Air 10/01/23 04:25 10/01/23 07:03 Temperature 96.5 F L Temperature Source Temporal Pulse Rate 87 87 Pulse Strength Respiratory Rate 18 Respiratory Effort Respiratory Depth Respiratory Pattern Blood Pressure 163/112 H 163/112 H Blood Pressure Mean 129 Blood Pressure Source Monitor Blood Pressure Position Semi-Fowlers Blood Pressure Location Right Arm Pulse Ox 96 Oxygen Delivery Method Room Air Weight Weight: 93.213 kg Body Mass Index (BMI) 27.8 NIHSS NIHSS Nursing Documentation NIHSS Nursing Documentation: NIHSS: Ischemic Stroke/TIA Start: 09/30/23 14:18 Text: For PCU Patients: NIH and Neuro Check every 4 Status: Complete hours, PRN and with change in RN caregiver. Freq: [id number] Protocol: Activity Type Activity Date Activity User E-sign Co-sign Detail Recorded Client Recorded Date Recorded By Document 09/30/23 18:25 8 Desktop 09/30/23 18:32 [facility] 09/30/23 18:25 NIH Stroke Scale [NIHSS] A score of 0 is normal or asymptomatic . Total possible score is 42. Inpatient: RN or Physician to activate a stroke alert for onset of new stroke symptoms or with NIHSS increase >/= 3 points. Following change in neurological status, NIHSS will be performed per physician order or more frequently PRN. -1a. Level of Consciousness Alert; keenly responsive -1b. LOC Questions Answers BOTH questions correctly. -1c. LOC Commands Performs both tasks correctly . -2. Best Gaze Normal -3. Visual No visual loss -4. Facial Palsy Normal symmetrical movements -5a. Left Arm No drift; arm holds 90 (or 45 ) degrees for full 10 seconds -5b. Right Arm No drift; arm holds 90 (or 45 ) degrees for full 10 seconds -6a. Left Leg No drift; leg holds 30-degree position for full 5 seconds -6b. Right Leg No drift; leg holds 30-degree position for full 5 seconds -7. Limb Ataxia Absent -8. Sensory Normal; no sensory loss -9. Best Language No aphasia; normal -10. Dysarthria Normal -11. Extinction and Inattention No abnormality -Total 0 Query Text:A score of 0 is normal or asymptomatic. Total possible score is 42 . ED: Notify Physician for NIHSS increase by > / = 3 points. Inpatient: RN or Physician to activate a stroke alert for NIHSS increase of > / = 3 points. Coma Scale [Assess] -Eye Opening Spontaneous -Motor Obeys Commands -Verbal Oriented [Total] -Coma Scale Total 15 NIHSS 1a. Level of Consciousness: Alert; keenly responsive 1b. LOC Questions: Answers BOTH questions correctly. 1c. LOC Commands: Performs both tasks correctly. 2. Best Gaze: Normal 3. Visual: No visual loss 4. Facial Palsy: Normal symmetrical movements 5a. Left Arm: No drift; arm holds 90 (or 45) degrees for full 10 seconds 5b. Right Arm: No drift; arm holds 90 (or 45) degrees for full 10 seconds 6a. Left Leg: No drift; leg holds 30-degree position for full 5 seconds 6b. Right Leg: No drift; leg holds 30-degree position for full 5 seconds 7. Limb Ataxia: Absent 8. Sensory: Normal; no sensory loss 9. Best Language: No aphasia; normal 10. Dysarthria: Normal 11. Extinction and Inattention: No abnormality Total: 0 Physical Exam Const alert and oriented x3 General Appearance: cooperative and comfortable HEENT normocephalic Head and Scalp: normal to inspection Eyes EOMs intact bilaterally Resp normal respiratory effort Neuro oriented x3, CN's II-XII intact bilaterally, moves all extremities, no focal motor deficits and no sensory deficits noted Neuro Narrative: Awake, alert Cranial nerves 2-12 intact Motor: 5/5 Sensation: Intact No ataxia Lab / Micro Data 10/01/23 04:50 10/01/23 04:50 Labs: Laboratory Results - last 24 hr 09/30/23 12:35: WBC 10.6, RBC 5.64, Hgb 16.4, Hct 50.2, MCV 89.0, MCH 29.1, MCHC 32.7, RDW Std Deviation 47.5 H, RDW Coeff of Pollo 14.7 H, Plt Count 198, MPV 10.0, Immature Gran % (Auto) 1.000 H, Neut % (Auto) 72.5 H, Lymph % (Auto) 14.6 L, [place] % (Auto) 8.8, Eos % (Auto) 2.3, Baso % (Auto) 0.8, Absolute Neuts (auto) 7.7, Absolute Lymphs (auto) 1.55, Nucleated RBC % 0, PT 19.5 H, INR 1.7, APTT 48.4 H, Sodium 140, Potassium 4.2, Chloride 105, Carbon Dioxide 31.0, Anion Gap 4 L, BUN 25 H, Creatinine 1.64 H, Estim Creat Clear Calc 37.63, Est GFR (MDRD) Af Amer 53 L, Est GFR (MDRD) Non-Af 44 L, BUN/Creatinine Ratio 15.2, Glucose 148 H, Hemoglobin A1c 6.2 H, Calcium 10.3 H, Troponin I High Sens 20, TSH 2.17 10/01/23 04:50: WBC 9.7, RBC 5.09, Hgb 15.0, Hct 45.1, MCV 88.6, MCH 29.5, MCHC 33.3, RDW Std Deviation 46.5 H, RDW Coeff of Pollo 14.6, Plt Count 183, MPV 10.6, Sodium 140, Potassium 3.9, Chloride 106, Carbon Dioxide 30.0, Anion Gap 4 L, BUN 22 H, Creatinine 1.47 H, Estim Creat Clear Calc 41.99, Est GFR (MDRD) Af Amer 58 L, Est GFR (MDRD) Non-Af 48 L, BUN/Creatinine Ratio 15.0, Glucose 100, Calcium 9.6, Troponin I High Sens 17, Triglycerides 79, Cholesterol 123, LDL Cholesterol 72, VLDL Cholesterol 16, HDL Cholesterol 35 L Imaging Radiology Impression Brain CT 09/30/23 12:35 IMPRESSION: 1. No CT evidence of intracranial bleeding, acute ischemic infarct or acute intracranial abnormality at this time. 2. Total ASPECTS score: 10/10. 3. Chronic white matter ischemic changes in both cerebral hemispheres. Electronically Signed: Akira Robison MD at 12:47 EDT Reading Location ID and State: [facility] / [place] , Service support , ADDENDUM: 09/30/23 1255 IMPRESSION: 1. No CT evidence of intracranial bleeding, acute ischemic infarct or acute intracranial abnormality at this time. 2. Total ASPECTS score: 10/10. 3. Chronic white matter ischemic changes in both cerebral hemispheres. N.B. : The above Results were Read Back by Akira Robison MD to Sukhdev Mark MD, and understanding confirmed on 09/30/2023 12:48:50 (ET). Electronically Signed: Akira Robison MD at 12:47 EDT , Head/Neck CTA 09/30/23 12:35 IMPRESSION: No large vessel occlusion or flow-limiting stenosis. Electronically Signed: Ricardo Jackson MD at 13:18 EDT , ADDENDUM: 09/30/23 1327 IMPRESSION: No large vessel occlusion or flow-limiting stenosis. N.B. : The above Results were Read Back by Ricardo Jackson MD to Sukhdev Mark MD, and understanding confirmed on 09/30/2023 13:20:25 (ET). Electronically Signed: Ricardo Jackson MD at 13:18 EDT , Brain MRI 09/30/23 13:28 IMPRESSION: Involutional changes of the brain, as described above. Electronically Signed: Cecil Faye MD at 16:15 EDT , Chest X-Ray 09/30/23 13:35 IMPRESSION: Linear left basilar atelectasis. Peripheral right mid lung opacity is nonspecific. This could be atelectatic or infectious/inflammatory. Electronically Signed: Ricardo Jackson MD at 13:52 EDT , Active Medications Active Medications Active Medications: Current Medications Generic Name Dose Route Start Last Admin Trade Name Freq PRN Reason Stop Dose Admin Acetaminophen 650 mg 09/30/23 14:18 Acetaminophen 325 Mg Tablet PO Q6H PRN PRN Pain 1-10 Or Fever>100.7 Aspirin 81 mg 10/01/23 08:00 10/01/23 05:25 Aspirin 81 Mg Tab.Chew PO 81 mg BREAKFAST SOLEDAD Administration Atorvastatin Calcium 40 mg 09/30/23 22:00 09/30/23 21:46 Atorvastatin Calcium 40 Mg Tablet PO 40 mg QHS SOLEDAD Administration Budesonide 0.5 mg 09/30/23 19:00 Budesonide Respules 0.5 Mg/2 Ml Ampul.Neb. INHALATION Q12H.RT [facility] Calcium/Vitamin D 1 tablet 10/01/23 10:00 Calcium Carb/Vitamin D 1 Tablet Tablet PO DAILY [facility] Hydralazine HCl 5 mg 09/30/23 14:18 Hydralazine 20 Mg/Ml Vial IV 10/01/23 14:18 Q30M PRN maintain BP parameters with HR <60 Hydralazine HCl 10 mg 10/01/23 06:34 10/01/23 07:03 Hydralazine 20 Mg/Ml Vial IV 10 mg Q4H PRN PRN Administration SBP > 160 Protocol Ipratropium [place] 0.5 mg 09/30/23 22:00 Ipratropium 0.5 Mg/2.5 Ml Solution INHALATION Q6HWA.RT [facility] Labetalol HCl 20 mg 09/30/23 12:35 Labetalol (Prefilled) 20 Mg/4 Ml IV 10/01/23 12:35 X1 PRN Blood Pressure Melatonin 3 mg 09/30/23 22:00 Melatonin 3 Mg Tablet PO QHS PRN PRN INSOMNIA Metoprolol Tartrate 50 mg 10/01/23 10:00 Metoprolol Tartrate 50 Mg Tablet PO BID [facility] Protocol Multivitamins 1 tablet 10/01/23 10:00 Multivitamins,Therapeutic Tablet PO DAILY [facility] Ondansetron HCl 4 mg 09/30/23 14:18 Ondansetron 4 Mg/2 Ml Vial IV Q8H PRN PRN NAUSEA/VOMITING Pantoprazole Sodium 20 mg 10/01/23 10:00 Pantoprazole Sodium 20 Mg Tablet PO DAILY [facility] Sodium Chloride 10 - 40 ml 09/30/23 14:22 0.9% Saline Lock 10 Ml Syringe IV UD PRN SALINE FLUSH
--- NOTE | 2023-10-01 10:48 | CASEMGMT ---
Social Work Pt negative for stroke. PHQ9 not indicated at this time. Eugene Rodrigues, BUSINESS AND FINANCIAL COUNSEL
[2023-10-01 10:50] VITALS: BP 160/122; PULSE 80; RESP 18; TEMP 36.1; O2SAT 97
[2023-10-01 10:55] VITALS: PULSE 80
[2023-10-01] MEDS: Multivitamins,Therapeutic Tablet 1 TABLET PO (10:55)
[2023-10-01] MEDS: Lactobacillis Acidophilus 1 CAP PO (10:55)
[2023-10-01] MEDS: Calcium Carb/Vitamin D 1 TABLET Tablet PO (10:55)
[2023-10-01] MEDS: Pantoprazole Sodium 20 MG Tablet PO (10:55)
[2023-10-01] MEDS: Metoprolol Tartrate 50 MG Tablet PO (10:55)
--- NOTE | 2023-10-01 12:16 | STRESSREP_ITS ---
Stress Test Report Date: 10/01/2023 Procedure: Pharmacologic stress nuclear imaging study Indications: Chest pain Consent: Per the patient Procedure: The patient underwent pharmacologic (Regadenoson) evaluation with a peak heart rate of 103 beats per minute (77%predicted maximal heart rate) and a peak blood pressure of 164/102 mmHg. The baseline ECG demonstrated atrial fibrillation, right bundle branch block. EKG during lexiscan infusion revealed no significant ischemic changes. EKG post infusion revealed no significant ischemic changes [There were no cardiac dysrhythmias pretest, during pharmacologic infusion, or recovery]. [There was no complaint of chest discomfort during pharmacologic infusion or recovery]. The examination was discontinued secondary to completion of protocol. Impression: 1. Lexiscan stress test test is negative for Lexiscan infusion induced EKG changes of ischemia. 2. Lexiscan stress test test is negative for Lexiscan infusion induced chest pain. 3. Results of the nuclear portion of the test is as below Myocardial perfusion imaging study: Technique: The patient was injected with 13.4 millicuries of technetium 99m Cardiolite and subsequently rest SPECT Cardiolite nuclear imaging was obtained in the horizontal long, vertical long, and short axis views. The patient underwent pharmacologic [Regadenoson 0.4mg] evaluation. Please see above for details. The patient was injected with 40.5 millicuries of technetium 99m Cardiolite and subsequently stress SPECT Cardiolite nuclear imaging was obtained in the horizontal long, vertical long, and short axis views. A gated Cardiolite study at peak stress was obtained. Interpretation: Rest and stress SPECT Cardiolite nuclear imaging status post realignment, normalization, and attenuation correction demonstrate overall normal myocardial radioisotope uptake. Gated images reveal no significant regional wall motion abnormalities. The reported LVEF is greater than 70%. Impression: 1. There is no evidence of ischemia or infarction. 2. Estimated ejection fraction is greater than 70%. This note was generated with [employer] software. It may contain incorrect words, spelling, and punctuation that were not noted in checking the note before signing.
[2023-10-01 13:20] VITALS: PULSE 78; RESP 16; O2SAT 96
[2023-10-01] MEDS: Ipratropium 0.5 MG/2.5 ML SOLUTION INHALATION (13:20)
--- NOTE | 2023-10-01 14:28 | DCINST_ITS ---
Discharge Instructions Diet Discharge Diet: 2000 mg Sodium Diet Activity Discharge Activity: Return to Normal Activity Weight Bearing Status: Weight bearing as tolerated Dressing / Incision Call your doctor if you observe: Fever of 101 or Higher, Coldness, Increased Pain, Numbness or Tingling, Change in Color, Inability to urinate, Inability to have a bowel movement, Shortness of breath, Dizziness, Fainting spells, Swelling in the ankles, Chest pain, Prolonged hiccupping, Increased palpitations (irregular heartbeat) and Calf discomfort Follow Up Care When: IN 2 WEEKS Test Results: Test results from this visit will be discussed in further detail at your follow- up appointment, if applicable. Discharge Plan Admission Admit Date/Time: 09/30/23 13:24 Primary Reason for Your Visit: Expressive aphasia /TIA Attending Provider: Khai Bose Primary Care Provider: Dipak Aguilar Consulting Providers: Terell Ramsey; Calin Moncada; Emmy Croft; Zoie Quesada; Deisy Lyons; Kannan Vuong; Maria G Dunham; Neo Coburn; Jose G Cedillo; Jose Gillis; Anastasia Rollins; Lennox Machado; Graciela Mendez; Louisa Bell; Oziel Stoner; Colton Burgos; Danny Her; Varun Rodríguez; Lexy Scott; Richard Chaudhry; Vaibhav North Instructions Additional Instructions / Restrictions: Patient was advised to consider baby aspirin if he is getting TIA symptoms on being Eliquis but he does not want to try right now. Advised to discuss with PCP Discharge Orders/Prescriptions Prescriptions: New atorvastatin 40 mg Tablet 40 mg PO QHS 30 Days Qty: 30 2RF Continued metoprolol tartrate 50 mg tablet 50 mg PO BID omeprazole 20 mg capsule,delayed release(DR/EC) 20 mg PO DAILY Eliquis 5 mg tablet 5 mg PO BID Trelegy Ellipta 200-62.5-25 mcg blister with device 1 ea inhalation DAILY calcium carbonate-vitamin D3 600 mg-10 mcg (400 unit) tablet 1 tab PO DAILY Probiotic 10 billion cell capsule 10,000 mmu cells PO DAILY multivitamin [Daily Multi-Vitamin] Tablet 1 tab PO DAILY Referrals / Follow Up: AguilarDipak osorio DO [Primary Care Provider] - Jamal Lorenzo MD [Non-Staff] - Within 1 Month (For TIA symptom) Disposition Disposition (needs filled in before D/C Order can be placed): Home, Self Care
--- NOTE | 2023-10-01 14:35 | DS.PCM_ITS ---
Providers Date of Admission: 09/30/23 Date of Discharge: 10/01/23 Primary Care Physician: Dr. Dipak Borja, Consultations 09/30/23 14:18 Consult: Tele-Neurology Routine Consulting Provider: [facility] Reason for Consult: Acute Ischemic Stroke/TIA EMERGENT Consult: No MD Notified: Yes Date Notified: 09/30/23 Time Notified: 13:26 Method of Notification: Answering Service Nursing Unit Staff Notify [facility] of Tele-Neurology Consult: Yes Reason For Visit: CVA RULE OUT Diagnosis Discharge Diagnosis (1) Expressive aphasia: Status: Acute Code(s): R47.01 - Aphasia (2) Brain TIA: Status: Acute Code(s): G45.9 - Transient cerebral ischemic attack, unspecified (3) Chronic a-fib: Status: Chronic Code(s): I48.20 - Chronic atrial fibrillation, unspecified (4) Anticoagulant long-term use: Status: Acute Code(s): Z79.01 - long-term (current) use of anticoagulants (5) Dyspnea on exertion: Status: Acute Code(s): R06.09 - Other forms of dyspnea Plan Patient is an 88-year-old male who presented to [facility] ED on 09/30/2023 with difficulty in expressing himself, started 1215 hrs. Denies headache, visual, other motor or sensory symptoms. Denies gait incoordination or balance 1. Episode of expressive aphasia concerning for TIA: Acute brain ischemia/TIA or hemorrhagic stroke ruled out. Patient was evaluated by [facility] neurologist and assessment was likely TIA. Continue Eliquis. Recommend to complete full stroke workup. Patient was admitted under observation status to PCU. Neurology consulted. Presented with expressive aphasia that resolved after [address] brain and CTA head/neck unremarkable. Had a stroke workup completed. NIH stroke scale 0. MRI brain was done and shows chronic involutional changes; moderate cerebral atrophy but no acute intracranial abnormality. Fasting profile shows HDL decreased 35. A1c 6.2, consistent with prediabetes. TSH normal. Patient had PT OT and speech evaluation and did not find significant need for further rehab. 2. Progressive worsening dyspnea on exertion, reported history of COPD/inhalational use of dusts/particulate matter possible interstitial lung disease and smoking history. Patient has a smoking history 1 pack lasting in 3 days quit in 1973. ? 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 Unable to obtain the records. Patient and family note seeing cardiology recently in [facility]. Patient has dyspnea on exertion walking short distance. Pharmacological nuclear stress was done and was found no evidence of ischemia or infarction. EF greater than 70%. Patient further hide echo shows EF 70%, LA mildly enlarged. Trivial MR. 3. Elevated serum creatinine ? Creatinine 1.65 on admit. Baseline unknown. Estimated GFR 44. Urine output is good. No burning micturition or acute low intact symptoms. Repeat labs shows improvement in BUN/creatinine 22/1.47. 4. Chronic A-fib on Eliquis ? EKG on admit showed rate controlled A-fib. Patient reports compliance with home Eliquis. Continue Eliquis and home Lopressor. 5. GERD ? Continue home PPI. DVT prophylaxis: Not indicated, on Eliquis CODE STATUS: Full code, verified Discharge medication reconciliation done. Discharge follow-up instructions completed. Discharge process discussed with the patient and all questions were answered to patient's satisfaction. Follow with PCP in 1 to 2 weeks Total time spent, exact 35 minutes on discharge meds reconciliation, examination, coordination of care with nurses and ancillary staff, review of imaging and blood test and discussion with the patient on follow-up instructions. Laboratory Results 09/30/23 12:35: WBC 10.6, RBC 5.64, Hgb 16.4, Hct 50.2, MCV 89.0, MCH 29.1, MCHC 32.7, RDW Std Deviation 47.5 H, RDW Coeff of Pollo 14.7 H, Plt Count 198, MPV 10.0, Immature Gran % (Auto) 1.000 H, Neut % (Auto) 72.5 H, Lymph % (Auto) 14.6 L, Duchesne % (Auto) 8.8, Eos % (Auto) 2.3, Baso % (Auto) 0.8, Absolute Neuts (auto) 7.7, Absolute Lymphs (auto) 1.55, Nucleated RBC % 0, PT 19.5 H, INR 1.7, APTT 48.4 H, Sodium 140, Potassium 4.2, Chloride 105, Carbon Dioxide 31.0, Anion Gap 4 L, BUN 25 H, Creatinine 1.64 H, Estim Creat Clear Calc 37.63, Est GFR (MDRD) Af Amer 53 L, Est GFR (MDRD) Non-Af 44 L, BUN/Creatinine Ratio 15.2, Glucose 148 H, H emoglobin A1c 6.2 H, Calcium 10.3 H, Troponin I High Sens 20, TSH 2.17 10/01/23 04:50: WBC 9.7, RBC 5.09, Hgb 15.0, Hct 45.1, MCV 88.6, MCH 29.5, MCHC 33.3, RDW Std Deviation 46.5 H, RDW Coeff of Pollo 14.6, Plt Count 183, MPV 10.6, Sodium 140, Potassium 3.9, Chloride 106, Carbon Dioxide 30.0, Anion Gap 4 L, BUN 22 H, Creatinine 1.47 H, Estim Creat Clear Calc 41.99, Est GFR (MDRD) Af Amer 58 L, Est GFR (MDRD) Non-Af 48 L, BUN/Creatinine Ratio 15.0, Glucose 100, Calcium 9.6, Troponin I High Sens 17, Triglycerides 79, Cholesterol 123, LDL Cholesterol 72, VLDL Cholesterol 16, HDL Cholesterol 35 L Clinical Impression(s) from Imaging Studies Brain CT 09/30/23 12:35 IMPRESSION: 1. No CT evidence of intracranial bleeding, acute ischemic infarct or acute intracranial abnormality at this time. 2. Total ASPECTS score: 10/10. 3. Chronic white matter ischemic changes in both cerebral hemispheres. Head/Neck CTA 09/30/23 12:35 IMPRESSION: No large vessel occlusion or flow-limiting stenosis. Brain MRI 09/30/23 13:28 IMPRESSION: Involutional changes of the brain, as described above. Chest X-Ray 09/30/23 13:35 IMPRESSION: Linear left basilar atelectasis. Peripheral right mid lung opacity is nonspecific. This could be atelectatic or infectious/inflammatory. Medications at Discharge Home Medications Lactobacillus acidophilus 10 billion cell capsule (Probiotic) 10,000 mmu cells PO DAILY 09/30/23 apixaban 5 mg tablet (Eliquis) 5 mg PO BID 09/30/23 calcium carbonate 600 mg-vitamin D3 10 mcg (400 unit) tablet 1 tab PO DAILY 09/30/23 fluticasone fur. 200 mcg-umeclid 62.5 mcg-vilant 25 mcg inhalat.powder (Trelegy Ellipta) 1 ea inhalation DAILY 09/30/23 metoprolol tartrate 50 mg tablet 50 mg PO BID 09/30/23 multivitamin (Daily Multi-Vitamin tablet) 1 tab PO DAILY 09/30/23 omeprazole 20 mg capsule,delayed release 20 mg PO DAILY 09/30/23 atorvastatin 40 mg tablet 40 mg PO QHS 30 days #30 tabs 10/01/23 Physical Exam Narrative Seen and examined. Dyspnea on Mild to moderate exertion. No chest pain. Physical exam General: Alert, Oriented x3, Cooperative HEENT: Atraumatic, PERRLA, EOMI, Normocephalic Oral: No Gingival or Mucosal Lesions/ Ulcerations Neck: Supple, No JVD, Negative Carotid Bruits Chest wall/Lungs: Air entry diminished in bilateral lungs. Expiratory rhonchi and coarse crepitation present. Cardiovascular: A-fib, rate controlled, Normal S1, Normal S2, No M/G/R Abdomen: Bowel Sounds Present, Soft, Non Tender, Non-Distended : No dysuria. No renal angle tenderness. No suprapubic tenderness. Extremities: No edema, Capillary Refill Less than 3 Seconds Skin: No rashes, No breakdown Musculoskeletal: No Tenderness to Palpation of Joints or Extremities. Muscle strength 5/5 at major joints. Neurological: Cranial nerves II-XII grossly intact, DTR 2+/4. No acute focal neurological deficit. Psych/Mental Status: Normal Affect, Appropriate. Weight / BMI Weight Weight: 205 lb 7.992 oz Body Mass Index (BMI) 27.8 ABG / Lab / Microbiology Data 10/01/23 04:50 10/01/23 04:50 Laboratory: Laboratory Results - last 24 hr 10/01/23 04:50: WBC 9.7, RBC 5.09, Hgb 15.0, Hct 45.1, MCV 88.6, MCH 29.5, MCHC 33.3, RDW Std Deviation 46.5 H, RDW Coeff of Pollo 14.6, Plt Count 183, MPV 10.6, Sodium 140, Potassium 3.9, Chloride 106, Carbon Dioxide 30.0, Anion Gap 4 L, BUN 22 H, Creatinine 1.47 H, Estim Creat Clear Calc 41.99, Est GFR (MDRD) Af Amer 58 L, Est GFR (MDRD) Non-Af 48 L, BUN/Creatinine Ratio 15.0, Glucose 100, Calcium 9.6, Troponin I High Sens 17, Triglycerides 79, Cholesterol 123, LDL Cholesterol 72, VLDL Cholesterol 16, HDL Cholesterol 35 L Radiography Diagnostic Testing: Radiology Impression Brain MRI 09/30/23 13:28 IMPRESSION: Involutional changes of the brain, as described above. Electronically Signed: Cecil Faye MD at 16:15 EDT Reading Location ID and State: [facility] / [place] Tel , Service support , Echocardiogram 09/30/23 13:28 Interpretation Summary The estimated ejection fraction is 70 %. Unable to assess diastolic dysfunction. The left atrium is mildly enlarged. Trivial mitral valve insufficiency. Ordering Physician: Vaibhav North Referring Physician: DIPAK BORJA Performed By: Katy Bush RCS D/C Instructions Discharge Diet: 2000 mg Sodium Diet Weight Bearing Status: Weight bearing as tolerated Call your doctor if you observe: Fever of 101 or Higher, Coldness, Increased Pain, Numbness or Tingling, Change in Color, Inability to urinate, Inability to have a bowel movement, Shortness of breath, Dizziness, Fainting spells, Swelling in the ankles, Chest pain, Prolonged hiccupping, Increased palpitations (irregular heartbeat) and Calf discomfort When: IN 2 WEEKS Meaningful Use Info Meaningful Use Meaningful Use Diagnoses (Choose all that apply): None applicable Ischemic Stroke Statin Dosing Therapy Reference: STATIN DOSE THERAPY REFERENCE: * Patients > 75 years receive moderate or high dose statin therapy. * Patients 75 years or YOUNGER should receive HIGH intensity statin dose unless contraindicated. You will be required to document reason for non-treatment if statin daily dose does not meet guidelines. HIGH DOSE STATIN THERAPY DAILY Atorvastatin > than or = to 40 mg Rosuvastatin > than or = to 20 mg Amlodipine + Atorvastatin > than or = to 2.5/40 mg Ezetimibe + Simvastatin 10/80 mg Simvastatin 80mg Discharge Plan Admission Admit Date/Time: 09/30/23 13:24 Primary Reason for Your Visit: Expressive aphasia /TIA Attending Provider: Khai Bose Primary Care Provider: Dipak Borja Consulting Providers: Terell Ramsey; Calin Moncada; Emmy Croft; Zoie Quesada; Deisy Lyons; Kannan Vuong; Maria G Dunham; Neo Coburn; Jose G Cedillo; Jose Gillis; Anastasia Rollins; Lennox Machado; Graciela Mendez; Louisa Bell; Oziel Stoner; Colton Burgos; Danny Her; Varun Rodríguez; Lexy Scott; Richard Chaudhry; Vaibhav North Instructions Additional Instructions / Restrictions: Patient was advised to consider baby aspirin if he is getting TIA symptoms on being Eliquis but he does not want to try right now. Advised to discuss with PCP Discharge Orders/Prescriptions Prescriptions: New atorvastatin 40 mg Tablet 40 mg PO QHS 30 Days Qty: 30 2RF Continued metoprolol tartrate 50 mg tablet 50 mg PO BID omeprazole 20 mg capsule,delayed release(DR/EC) 20 mg PO DAILY Eliquis 5 mg tablet 5 mg PO BID Trelegy Ellipta 200-62.5-25 mcg blister with device 1 ea inhalation DAILY calcium carbonate-vitamin D3 600 mg-10 mcg (400 unit) tablet 1 tab PO DAILY Probiotic 10 billion cell capsule 10,000 mmu cells PO DAILY multivitamin [Daily Multi-Vitamin] Tablet 1 tab PO DAILY Referrals / Follow Up: Dipak Borja DO [Primary Care Provider] - Jamal Lorenzo MD [Non-Staff] - Within 1 Month (For TIA symptom) Disposition Disposition (needs filled in before D/C Order can be placed): Home, Self Care Charges/Coding Visit Charges Inpatient E&M: 55351 Disch Hosp >30min
--- NOTE | 2023-10-01 14:47 | CASEMGMT ---
Addendum entered by Storm Vallecillo 10/01/23 14:55: Pt denies need for OP therapy, stating he has been steady on his feet. He also denies needing any OP ST. Made aware to f/u with PCP if he changes his mind. Original Note: LUPE SAVAGE NOTE: Intro role of CM to patient and [employer] form explained re: Observation status for treatment of CVA rule out.? Explained hospitalization will be paid per?his insurance policy for Outpatient billing?and condition will continue to be evaluated for Inpt necessity. Also let pt know that [facility] sends paper in the billing packet with their phone number if questions arise. Discussed Pharmacy section of [employer] form and self administered medication guideline.? Pt verbalizes understanding and does not have further questions. ?Form signed, copy made and placed in chart, and original given to pt. Ger RIBERA RN, CM
== END 2023-10-01 14:34 | disposition home or self-care (01) ==
LOC: ED 13:29 → PCU 13:34
PROVIDERS: Family Medicine; Admitting Provider Hospitalist; Emergency Provider Emergency Medicine; PCP Student in an Organized Health Care Education/Training Program; Visit Provider Internal Medicine
DX: G45.9 Transient cerebral ischemic attack, unspecified (principal); J44.9 Chronic obstructive pulmonary disease, unspecified; I48.20 Chronic atrial fibrillation, unspecified; R47.01 Aphasia; Z87.891 Personal history of nicotine dependence; Z79.01 Long term (current) use of anticoagulants; I10 Essential (primary) hypertension; Z79.51 Long term (current) use of inhaled steroids; Z79.899 Other long term (current) drug therapy; R06.02 Shortness of breath; R79.89 Other specified abnormal findings of blood chemistry; K21.9 Gastro-esophageal reflux disease without esophagitis
CPT/HCPCS: 36415; 70450; 70496; 70498; 70551; 71045; 78452; 80048; 80061; 83036; 84443; 84484; 85025; 85027; 85610; 85730; 92610; 93005; 93017; 93306; 94640; 94762; 96374; 96375; 97161; 97165; 97802; 99221; 99285; A9500; Q9957; Q9967; A4216; C8929; G0378; J2785

== ENCOUNTER 2024-09-11 10:13 | Emergency (ER) | payer MEDICARE, SELFPAY ==
[2024-09-11 10:13] VITALS: BP 170/118; PULSE 84; RESP 18; TEMP 36.5; O2SAT 96; BMI 26.2
--- NOTE | 2024-09-11 10:23 | CT_ITS ---
EXAM: NONCONTRAST CT SCAN OF THE HEAD CLINICAL HISTORY: Fall, hit right side COMPARISON: None TECHNIQUE: Serial axial series through the head were obtained without contrast. 2-D coronal and sagittal reformats were then obtained. DLP = 863 mGy-cm FINDINGS: Brain: There is no acute large territorial infarct, intracranial hemorrhage, midline shift or mass effect. There are atherosclerotic vascular calcifications involving the bilateral carotid siphons. The sella and pineal gland regions appear unremarkable. There is low-density in the deep white matter on the right and left consistent with chronic ischemic change. There is no evidence of cerebellar tonsillar herniation. Ventricles: There is no acute hydrocephalus. Basilar cisterns are patent. Paranasal sinuses: Well-aerated Mastoid air cells: Well-aerated. Calvarium: The bony calvarium is intact. Orbits: The bilateral globes are symmetric, without retrobulbar compressive mass lesion or hemorrhage. Miscellaneous: CT/Brain/Head without Contrast IMPRESSION: There is low-density in the deep white matter on the right and left consistent with chronic ischemic change. No acute intracranial pathology or acute traumatic injury. Reading Location: [facility]
[2024-09-11] MEDS: Lidocaine 1% (20 ml mdv) 20 ML Vial INFILT (10:28)
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
--- NOTE | 2024-09-11 10:35 | RAD_ITS ---
PROCEDURE: KNEE 4 OR MORE VIEWS 09/11/2024 REASON FOR EXAM: INJURY/PAIN TECHNIQUE: KNEE 4 OR MORE VIEWS COMPARISON: None FINDINGS: There is a total knee prosthesis in position with no visible hardware failure or loosening. There is no acute fracture. There is no visible effusion. Vascular calcifications are noted. RAD/Knee 4 or More Views IMPRESSION: Hardware in position. Reading Location: [facility]
[2024-09-11 11:13] VITALS: BP 155/105; PULSE 74
[2024-09-11 12:00] VITALS: BP 190/123; PULSE 73
[2024-09-11 12:56] VITALS: BP 190/123; PULSE 78; RESP 16; TEMP 36.3; O2SAT 100
--- NOTE | 2024-09-11 12:57 | ED.RN ---
pt. hypertensive at discharge, pt. states he has PRN blood pressure medication that he is to take when his diastolic is above 100 at home. States he will go home, have lunch and relax and re check BP and will take PRN medication is still indicated.
== END 2024-09-11 12:58 | disposition home or self-care (01) ==
PROVIDERS: Emergency Provider Emergency Medicine; PCP Student in an Organized Health Care Education/Training Program; Visit Provider Emergency Medicine
DX: S01.121A Laceration with foreign body of right eyelid and periocular area, initial encounter (principal); I48.20 Chronic atrial fibrillation, unspecified; S61.411A Laceration without foreign body of right hand, initial encounter; S80.211A Abrasion, right knee, initial encounter; S90.414A Abrasion, right lesser toe(s), initial encounter; S50.311A Abrasion of right elbow, initial encounter; S80.01XA Contusion of right knee, initial encounter; W19.XXXA Unspecified fall, initial encounter; K21.9 Gastro-esophageal reflux disease without esophagitis; Z79.01 Long term (current) use of anticoagulants; Z79.899 Other long term (current) drug therapy; Z96.651 Presence of right artificial knee joint; Z87.891 Personal history of nicotine dependence
CPT/HCPCS: 12011; 12002; 70450; 73564; 99283

== ENCOUNTER 2024-10-14 07:29 | Emergency (ER) | payer MEDICARE, SELFPAY ==
[2024-10-14 07:29] VITALS: BP 161/109; BP 170/115; PULSE 85; PULSE 91; RESP 14; RESP 16; TEMP 36.2; O2SAT 98; O2SAT 99; BMI 27.1
[2024-10-14 07:41] VITALS: BP 162/102; PULSE 104; RESP 14; O2SAT 98
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
[2024-10-14 08:00] VITALS: BP 144/95; PULSE 81; RESP 19; O2SAT 98
--- OUTSIDE RECORDS SUMMARY | 2024-10-14 08:00 | XMS RPT_ITS | CCD ---
Author Organization [facility] Care Team Providers Care Roving Technician Name Role Phone SHARATH ISSA Unavailable Unavailable DIPAK AGUILAR Unavailable Unavailable DIPAK AGUILAR Unavailable Unavailable Dipak Aguilar DO Primary Care Provider Dipak Aguilar DO Primary Care Provider Dipak Aguilar DO Primary Care Provider Dipak Aguilar DO Primary Care Provider Dipak Aguilar DO Primary Care Provider DIPAK AGUILAR Primary Care Unavailable JEFFREY ZURITA Referring Unavail able Emerald ANDRADE, Ananya Unavailable SHARATH ISSA Attending Unavailabl e DIPAK AGUILAR Primary Care Unavailable Cullen FOUNTAIN JERK.Radha JEAN-BAPTISTE Unavailable Jose FOUNTAIN JERK.Judith JEAN-BAPTISTE Unavailable Alon FOUNTAIN JERK.Shayla JEAN-BAPTISTE Unavailable Dr. Dipak Aguilar DO Primary Care Provider Dr. Sukhdev Mark MD Emergency Provider Terell Ramsey Consulting Unavailable Dipak Aguilar Primary Care Unavailable Khai Bose Attending Unavailable Vaibhav North Admitting Unavailable Calin Moncada Consulting Unavailable Emmy Croft Consulting Unavailable Zoie Quesada Consulting Unavailable Deisy Lyons Consulting Unavailable Kannan Vuong Consulting Unavailable Maria G Dunham Consulting Unavailable Neo Coburn Consulting Unavailable Mariana Cedillo Consulting Unavailable Jose Gillis Consulting Unavailable Anastasia Rollins Consulting Unavailable Lennox Machado Consulting Unavailable Graciela Mendez Consulting Unavailable Ridha, Mohamed Consulting Unavailable Zajohnathanlouleh, Mhd Jass Consulting UnavailColton Teran Consulting Unavailable Her, Rami Consulting Unavailable Anne, Varun Consulting Unavailable Tyler, Lexy Consulting Unavailable Richa, Yousef Consulting Unavailable Vaibhav North Consulting Unavailable Juice, Khai Consulting Unavailable Sukhdev Mark Attending Unavailable Aguilar, Dipak Primary Care Unavailable Terell Ramsey Consulting Unavailable Juice, Khai Attending Unavailable Aguilar, Dipak Primary Care Unavailable Vaibhav North Admitting Unavailable Adeli, Amir Consulting Unavailable Hinduja, Emmy Consulting Unavailable Dipak Zoie Consulting Unavailable Serena, Deisy Consulting Unavailable Kannan Vuong Consulting Unavailable Maria G Dunham Consulting Unavailable Neo Coburn Consulting Unavailable Mariana Cedillo Consulting Unavailable Jose Gillis Consulting Unavailable Anastasia Rollins Consulting Unavailable Lennox Machado Consulting Unavailable Andrea, Graciela Consulting Unavailable Ridha, Mohamed Consulting Unavailable Zamyeshah, Raynad Jass Consulting UnavailColton Teran Consulting Unavailable Her, Rami Consulting Unavailable Anne, Varun Consulting Unavailable Tyler, Lexy Consulting Unavailable [place], Yousef Consulting Unavailable Vaibhav North Consulting Unavailable Vaibhav North Attending Unavailable Sue Anderson Attending Unavailabl e AGUILAR, DIPAK L Primary Care Unavailable SLEIK, KHALED MELOUD Referring Unavailable AGUILAR, DIPAK L Primary Care Unavailable SLEIK, KHALED MELOUD Referring Unavailable AGUILAR, DIPAK L Primary Care Unavailable JEFFREY ZURITA Attending Unavail able AGUILAR, DIPAK L Primary Care Unavailable AGUILAR, DIPAK L Referring Unavailable JUDITH GARCIA Referring Unavailable AGUILAR, DIPAK L Primary Care Unavailable JUDITH GARCIA Attending Unavailable AGUILAR, DIPAK L Primary Care Unavailable RADHA BERMAN Referring Unavailabl e AGUILAR, DIPAK L Primary Care Unavailable RADHA BERMAN Attending Unavailabl e AGUILAR, DIPAK L Primary Care Unavailable AGUILAR, DIPAK L Primary Care Unavailable SLEIK, KHALED MELOUD Attending Unavailable AGUILAR, DIPAK L Primary Care Unavailable JOSE, JUDITH Attending Unavailable JOSE, JUDITH Referring Unavailable AGUILAR, DIPAK L Primary Care Unavailable OMAR TREADWELL Attending Unavailable JOSE, JUDITH Referring Unavailable AGUILAR, DIPAK L Primary Care Unavailable JOSE, JUDITH Referring Unavailable AGUILAR, DIPAK L Primary Care Unavailable AGUILAR, DIPAK L Primary Care Unavailable JOSE, JUDITH Referring Unavailable AGUILAR, DIPAK L Primary Care Unavailable VIKKI WORLEY Attending Unavailable AGUILAR, DIPAK L Primary Care Unavailable VIKKI WORLEY Attending Unavailable AGUILAR, DIPAK L Primary Care Unavailable ANANYA FRAZIER Attending Unavailable AGUILAR, DIPAK L Primary Care Unavailable ANALISA NICOLE Referring Unavailable AGUILAR, DIPAK L Primary Care Unavailable SHAYLA HINES Attending Unavailable AGUILAR, DIPAK L Primary Care Unavailable RADHA BERMAN Referring UnavailJAMAL Cohn JR Attending Unavailable AGUILAR, DIPAK L Primary Care Unavailable AGUIALR, DIPAK L Referring Unavailable AGUILAR, DIPAK L Primary Care Unavailable AGUILAR, DIPAK L Attending Unavailable AGUILAR, DIPAK L Primary Care Unavailable SHAYLA HINES Referring Unavailable AGUILAR, DIPAK L Primary Care Unavailable ANALISA NICOLE Referring Unavailable JOSE, JUDITH Attending Unavailable AGUILAR, DIPAK L Primary Care Unavailable JOSE, JUDITH Attending Unavailable AGUILAR, DIPAK L Primary Care Unavailable Allergies Allergy Classification Reported Allergen(s) Allergy Type Date of Onset Reaction(s) Facility (20 sources) mold extract; Translations: [MOLD] Drug Allergy 1 Cough [facility] Repository (20 sources) CYPRESS; Translations: [CYPRESS] Propensity to adverse reactions (disorder) 1 Other: See Comments [facility] Repository (20 sources) CEDAR; Translations: [CEDAR] Propensity to adverse reactions (disorder) 1 Cough [facility] Repository (20 sources) predniSONE; Translations: [PREDNISONE] Drug Allergy 5 Mental Status Change [facility] Medications Current Medications Medication Drug Class(es) Dates Sig (Normalized) Sig (Original) amoxicillin 875 mg / clavulanate 125 mg oral tablet (1 source) Penicillin-class Antibacterial Start: 07-01-2022 End: 05-18-2023 take 1 tablet by mouth twice daily amoxicillin-clavu lanic acid (AUGMENTIN) 875-125 mg per tablet Take 1 tablet by mouth twice daily for 7 days. 20 tablet 0 07/01/2022 07/08/2022 Active 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: Take 1 tablet by sindhu th twice daily for 7 days. apixaban 5 mg oral tablet (20 sources) Factor Xa Inhibitor Start: 09-06-2019 End: 05-30-2024 take 1 tablet by mouth twice daily apixaban (ELIQUIS) 5 mg tab(s) Indications: Permanent atrial fibrillation (HCC) Take 1 tablet by mouth two times a day. 180 tablet 3 05/31/2024 Active 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: Take 1 tablet by sindhu th twice daily. take 1 tablet twice a day atorvastatin 40 mg oral tablet (15 sources) HMG-CoA Reductase Inhibitor Start: 10-01-2023 End: 01-10-2024 take 1 tablet by mouth at bedtime Atorvastatin 40 mg Tablet Active 40 mg PO AT BEDTIME 30 30 2 October 01, 2023 12:00am Blood-Glucose Meter monitoring kit (2 sources) Start: 05-31-2024 End: 06-01-2024 Blood-Glucose Meter monitoring kit Indications: New onset type 2 diabetes mellitus (HCC) Glucose Meter of Choice - Kit - Dx: Type 2 DM - Controlled E11.9 1 each 05/31/2024 06/01/2024 Active budesonide 0.125 mg/ml inhalation suspension (13 sources) Corticosteroid budesonide (PULMICORT) 0.25 mg/2 mL nebulizer solution Use 0.25 mg via nebulizer two times a day. Active 120 actuat budesonide 0.16 mg/actuat / formoterol fumarate 0.0045 mg/actuat metered dose inhaler (2 sources) Corticosteroid, beta2-Adrenergic Agonist Start: 09-05-2019 Budesonide-Formot stella 160-4.5 mcg/actuation HFA aerosol inhaler Active 2 NMA PO TWICE A DAY September 05, 2019 12:00am breathing calcium carbonate 1500 mg / cholecalciferol 0.01 mg oral tablet (2 sources) Vitamin D Start: 09-30-2023 Calcium Carbonate-Vitamin D3 600 mg-10 mcg (400 unit) tablet Active 1 {tbl} PO DAILY September 30, 2023 12:00am supplement calcium citrate/vitamin D3 (CALCIUM CITRATE + D ORAL) (20 sources) take 800 mg by mouth once daily calcium citrate/vitamin D3 (CALCIUM CITRATE + D ORAL) Take 800 mg by mouth once daily. Active take 800 mg by mouth once daily calcium citrate/vitamin D3 (CALCIUM CITRATE + D ORAL) Take 800 mg by mouth once daily. 0 Active 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: Take 800 mg by mouth once daily. cholecalciferol 0.05 mg oral tablet (2 sources) Vitamin D Start: 09-26-19 take 1 tablet by mouth once daily Cholecalciferol (Vitamin D3) 50 mcg (2,000 unit) tablet Active 50 ug PO DAILY September 26, 2019 12:00am Bqejehfehmf-Iclwikcwx-Oq lanter (2 sources) Start: 09-30-19 24 Jmtfdscrgyu-Uxdgyhpmn-S ilanter (Trelegy Ellipta) 200-62.5-25 mcg blister with device Active 1 NMA INHALATION DAILY September 30, 2023 12:00am breathing Start: 09-30-2023 Fluticasone-Um eclidin-Vilanter (Trelegy Ellipta) 200-62.5-25 mcg blister with device Active 1 NMA INHALATION DAILY September 30, 2023 12:00am furosemide 20 mg oral tablet (8 sources) Loop Diuretic Start: 05-16-2024 End: 05-31-2024 furosemide (LASIX) 20 mg tablet Indications: Hospital discharge follow-up , Bilateral leg edema Take 1 tablet by mouth as needed. 30 tablet 05/16/2024 05/31/2024 Discontinued hydrALAZINE hydrochloride 25 mg oral tablet (17 sources) Arteriolar Vasodilator Start: 05-30-2024 End: 09-05-2024 take 1 tablet by mouth once daily as needed hydrALAZINE (APRESOLINE) 25 mg tablet Indications: Permanent atrial fibrillation (HCC) , Hypertension, essential Take 1 tablet by mouth up to 2x daily as needed for SBP >160 (top number) and/or DBP >100 (bottom number) 90 tablet 1 09/05/2024 Active Start: 04-27-2024 End: 05-30-2024 take 1 tablet by mouth four times daily hydrALAZINE (APRESOLINE) 25 mg tablet Take 25 mg by mouth four times daily. 04/27/2024 05/30/2024 Discontinued lactobacillus acidophilus [id number] unt oral capsule (2 sources) Start: 09-30-2023 take 10 capsules by mouth once daily Lactobacillus Acidophilus (Probiotic) 10 billion cell capsule Active 47813 NMA PO DAILY September 30, 2023 12:00am supplement losartan potassium 100 mg oral tablet (20 sources) Angiotensin 2 Receptor Mattie Start: 09-25-2024 take 1 tablet by mouth once daily losartan (COZAAR) 100 mg tablet Indications: Hypertension, essential , Permanent atrial fibrillation (HCC) Take 1 tablet by mouth once daily. 90 tablet 3 09/25/2024 Active Start: 06-28-2024 take 1 tablet by sindhu th once daily losartan (COZAAR) 100 mg tablet Indications: Hypertension, essential , Permanent atrial fibrillation (HCC) Take 1 tablet by mouth once daily. 30 tablet 2 06/28/2024 Active Start: 06-14-2024 End: 06-28-2024 take 1 tablet by mouth once daily losartan (COZAAR) 25 mg tablet Indications: Hypertension, essential Take 1 tablet by mouth once daily. In addition to 50mg dose for total of 75mg daily 30 tablet 2 06/14/2024 06/28/2024 Discontinued Start: 05-30-2024 End: 11-26-2024 take 1 tablet by mouth once daily losartan (COZAAR) 50 mg tablet Indications: Hypertension, essential , Permanent atrial fibrillation (HCC) Take 1 tablet by mouth once daily. In addition to 25mg dose for total of 75mg daily 06/14/2024 06/28/2024 Discontinued End: 05-30-2024 take 1 tablet by mouth once daily losartan (COZAAR) 25 mg tablet Take 25 mg by mouth once daily. 05/30/2024 Discontinued metFORMIN hydrochloride 500 mg oral tablet (15 sources) Biguanide Start: 05-31-2024 End: 06-28-2024 take 1 tablet by mouth once daily at breakfast metFORMIN (GLUCOPHAGE) 500 mg tablet Indications: New onset type 2 diabetes mellitus (HCC) Take 1 tablet by mouth daily with breakfast. 05/31/2024 06/28/2024 Discontinued Start: 05-30-2024 End: 11-26-2024 take 1 tablet by mouth twice daily at mealtime metFORMIN (GLUCOPHAGE) 500 mg tablet Indications: New onset type 2 diabetes mellitus (HCC) Take 1 tablet by mouth two times a day with meals. 60 tablet 2 06/28/2024 Active metoprolol tartrate 50 mg oral tablet (20 sources) beta-Adrenergic Mattie Start: 09-06-2019 End: 05-30-2024 take 1 tablet by mouth twice daily metoprolol tartrate, short acting, (LOPRESSOR) 50 mg tablet Indications: Permanent atrial fibrillation (HCC) Take 1 tablet by mouth two times a day. 180 tablet 3 05/31/2024 Active 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: TAKE 1 TABLET TWICE A DAY Take 1 tablet by sindhu twice daily. Multivitamin (Daily Multi-Vitamin) tablet (2 sources) Start: 09-30-2023 Multivitamin (Daily Multi-Vitamin) tablet Active 1 {tbl} PO DAILY September 30, 2023 12:00am supplement Start: 09-30-2023 Multivitamin ( Daily Multi-Vitamin) tablet Active 1 {tbl} PO DAILY September 30, 2023 12:00am Multivitamin tablet (2 sources) Start: 09-25-2019 Multivitamin tablet Active 1 {tbl} PO EVERY WEEK September 25, 2019 12:00am ofloxacin 3 mg/ml otic solution (1 source) Quinolone Antimicrobial Start: 07-01-2022 End: 07-08-2022 ofloxacin (FLOXIN) 0.3 % otic solution Use 5 Drops in the right ear once daily for 7 days. 5 mL 0 07/01/2022 07/08/2022 Active 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: Use 5 Drops in the r ight ear once daily for 7 days. omeprazole 20 mg delayed release oral capsule (20 sources) Proton Pump Inhibitor Start: 11-19-2022 End: 05-25-2025 take 1 capsule by mouth once daily before mealtime omeprazole (PRILOSEC) 20 mg capsule Take 1 capsule by mouth once daily. 1/2 hr before meal. 90 capsule 3 05/30/2024 05/25/2025 Active Start: 11-19-2022 End: 11-19-2022 take 1 capsule by mouth every twelve hours as needed omeprazole (PRILOSEC) 20 mg capsule Take 1 capsule by mouth two times a day as needed. 1/2 hr before meal. 60 capsule 2 11/19/2022 11/19/2022 Discontinued Start: 11-16-2021 End: 11-19-2022 take 1 capsule by mouth once daily omeprazole (PRILOSEC) 40 mg capsule Indications: Gastroesophageal reflux disease without esophagitis Take 1 capsule by mouth once daily. 90 capsule 3 11/16/2021 11/19/2022 Discontinued Start: 07-22-2015 End: 08-10-2021 take 1 capsule by mouth once daily omeprazole (PRILOSEC) 40 mg capsule Indications: Gastroesophageal reflux disease without esophagitis Take 1 capsule by mouth once daily. 90 capsule 0 08/12/2021 Active 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: Take 1 capsule by mo uth once daily. Take 1 capsule by mo uth once daily. 1/2 hr before meal. Take 1 capsule by mo uth two times a day as needed. 1/2 hr before meal. rosuvastatin calcium 20 mg oral tablet (20 sources) HMG-CoA Reductase Inhibitor Start: End: 5 take 1 tablet by mouth once daily at bedtime rosuvastatin (CRESTOR) 20 mg tablet Take 1 tablet by mouth daily at bedtime. 90 tablet 1 05/30/2024 Active saccharomyces boulardii 250 mg oral capsule (20 sources) take 1 capsule by mouth once daily Saccharomyces boulardii (FLORASTOR) 250 mg capsule Take 250 mg by mouth once daily. Active TRELEGY ELLIPTA 200-62.5-25 mcg dsdv (20 sources) Start: TRELEGY ELLIPTA 200-62.5-25 mcg dsdv Inhale as instructed once daily. 08/19/2020 Active Start: 08-19-2020 TRELEGY ELLIPT A 200-62.5-25 mcg dsdv Inhale as instructed once daily. 0 08/19/2020 Active Start: 08-19-2020 TRELEGY ELLIPT A 200-62.5-25 mcg dsdv 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: Inhale as instructed once daily. Completed/Discontinued Medications Medication Drug Class(es) Dates Sig (Normalized) Sig (Original) [id number] 200 actuat albuterol 0.09 mg/actuat metered dose inhaler (20 sources) beta2-Adrenergic Agonist Start: 11-16-2021 take 2 puff(s) by inhalation every four hours as needed for wheezing albuterol HFA (VENTOLIN HFA) 90 mcg/actuation inhaler Indications: Asthma-COPD overlap syndrome (HCC) Inhale 2 Puffs as instructed every 4 hours as needed for wheezing/shortnes s of breath. Also can use 10 minutes before exercise 18 g 2 11/16/2021 Active Start: 10-11-2019 End: 11-17-2022 take 1 puff(s) by inhalation four times daily as needed ProAir RespiClick 90 mcg/actuation breath activated (albuterol sulfate) Inhale 1 Puff as instructed four times daily as needed. 1 Each 11 10/11/2019 11/17/2022 Discontinued Start: 09-05-2019 Albuterol Sulf ate 90 mcg/actuation aerosol powdr breath activated Active 1 NMA PO EVERY 6 HOURS September 05, 2019 12:00am shortness of breath 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: Inhale 1 Puff as ins tructed four times daily as needed. Inhale 2 Puffs as in structed every 4 hours as needed for wheezing/shortness of breath. Also can use 10 minutes before exercise albuterol 0.833 mg/ml / ipratropium bromide 0.167 mg/ml inhalation solution (15 sources) Anticholinergic, beta2-Adrenergic Agonist End: take 3 mL by inhalation three times daily ipratropium-albuter ol (DUONEB) 0.5 mg-3 mg(2.5 mg base)/3 mL nebu Inhale 3 mL as instructed three times a day. 07/02/2024 Discontinued (Course of therapy completed) 24 hr alfuzosin hydrochloride 10 mg extended release oral tablet (20 sources) alpha-Adrenergic Mattie Start: End: take 1 tablet by mouth once daily alfuzosin SR (UROXATRAL) 10 mg 24 hr tablet Indications: benign prostatic hyperplasia Take 1 tablet by mouth once daily 90 tablet 0 05/18/2023 09/12/2023 Discontinued 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: Take 1 tablet by sindhu th once daily. Take 1 tablet by sindhu th once daily amoxicillin 500 mg oral capsule (20 sources) Penicillin-class Antibacterial Start: 023 End: amoxicillin (AMOXIL) 500 mg capsule TAKE FOUR CAPSULES BY MOUTH ONE HOUR BEFORE APPOINTMENT 07/12/2022 11/29/2023 Discontinued Start: 10-11-2013 End: 07-22-2015 take 1 capsule by mouth every eight hours Amoxicillin 500 MG capsule Discontinued 500 mg PO Q8H 15 0 October 11, 2013 12:00am July 22, 2015 2:20pm 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: TAKE FOUR CAPSULES B Y MOUTH ONE HOUR BEFORE APPOINTMENT cetirizine hydrochloride 10 mg oral tablet (20 sources) Histamine-1 Receptor Antagonist Start: 4 End: 3 take 1 tablet by mouth once daily cetirizine (ZYRTEC) 10 mg tablet Take 10 mg by mouth once daily. 0 07/02/2013 11/17/2022 Discontinued 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: Take 10 mg by mouth once daily. Fish Oils (2 sources) Start: 0 End: 0 Fish Oil 1 TAB Discontinued 1 {tbl} PO DAILY September 05, 2019 12:00am September 25, 2019 9:28am supplement Start: 09-05-2019 End: 09-25-2019 Fish Oil 1 TAB Discontinued 1 {tbl} PO DAILY September 05, 2019 12:00am September 25, 2019 9:28am lidocaine hydrochloride 0.02 mg/mg topical gel (4 sources) Antiarrhythmic, Amide Local Anesthetic Start: 06-24-2023 End: 06-24-2023 lidocaine urojet 2 % 6 mL topical gel (GLYDO) Start: 10-19-2022 End: 10-19-2022 lidocaine urojet 2 % 6 mL to pical gel (GLYDO) Start: 07-20-2022 End: 07-20-2022 lidocaine urojet 2 % 6 mL to pical gel (GLYDO) Multivitamin 1 TAB (2 sources) Start: 09-05-2019 End: 09-25-2019 Multivitamin 1 TAB Discontin ued 1 {tbl} PO EVERY WEEK September 05, 2019 12:00am September 25, 2019 9:28am supplement Start: 09-05-2019 End: 09-25-2019 Multivitamin 1 TAB Discontin ued 1 {tbl} PO EVERY WEEK September 05, 2019 12:00am September 25, 2019 9:28am multivitamin tablet (13 sources) Start: 09-25-2018 End: 07-28-2022 multivitamin tablet Twice we ekly 09/25/2018 07/28/2022 Discontinued Start: 09-25-2018 multivitamin t ablet Twice weekly 0 09/25/2018 Active 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: Twice weekly nitrofurantoin, macrocrystals 25 mg / nitrofurantoin, monohydrate 75 mg oral capsule (1 source) Nitrofuran Antibacterial Start: 023 End: take 1 capsule by mouth twice daily nitrofurantoin monohydrate and macrocrystal (MACROBID) 100 mg capsule Take 1 capsule by mouth twice daily for 7 days. FOR 7 DAYS. 14 capsule 0 10/12/2022 10/12/2022 Discontinued (Course of therapy completed) 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: Take 1 capsule by mo [facility] twice daily for 7 days. FOR 7 DAYS. 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 30 to 60 minutes prior to sexual intercourse 30 tablet 1 10/01/2022 10/31/2022 Active 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: [facility] 30 to 60 minutes prior to sexual intercourse Take 30 minutes prio r to intercourse as needed. sulfamethoxazole 800 mg / trimethoprim 160 mg oral tablet (11 sources) Dihydrofolate Reductase Inhibitor Antibacterial, Sulfonamide Antimicrobial Start: 06-24-2023 End: 06-24-2023 sulfamethoxazole-t rimethoprim 800-160 mg 1 tablet (BACTRIM DS) Start: 10-19-2022 End: 10-19-2022 sulfamethoxazole-trimethopri m 800-160 mg 1 tablet (BACTRIM DS) Start: 08-20-2022 End: 10-19-2022 take 1 tablet by mouth twice daily sulfamethoxazole-trimethoprim (BACTRIM D S) 800-160 mg per tablet Take 1 tablet by mouth twice daily for 7 days. 14 tablet 0 10/12/2022 10/19/2022 Active Start: 07-20-2022 End: 07-20-2022 sulfamethoxazole-trimethopri m 800-160 mg 1 tablet (BACTRIM DS) 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: Take 1 tablet by sindhu th twice daily. Take 1 tablet by sindhu th twice daily for 7 days. 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 Take 1 tablet once d aily as needed for erectile dysfunction 24 hr tolterodine tartrate 2 mg extended release oral capsule (10 sources) Cholinergic Muscarinic Antagonist Start: take 2 capsules by mouth once daily tolterodine ER (DETROL LA) 2 mg 24 hr capsule Indications: Urinary incontinence, unspecified type Take 2 capsules by mouth once daily. 30 capsule 11 08/17/2022 Active 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: Take 2 capsules by m [facility] once daily. Problems Active Problems Problem Classification Problem Date Documented Date Episodic/Chronic Acute cerebrovascular disease (9 sources) Cerebrovascular accident; Translations: [Cerebral infarction, unspecified] Onset: 09-05-2024 05-16-2024 Chronic Administrative/social admission (1 source) Mobility poor; Translations: [Other reduced mobility] 05-16-2024 Episodic Cardiac dysrhythmias (20 sources) Persistent atrial fibrillation; Translations: [Other persistent atrial fibrillation] Onset: 10-11-2019 Resolved: 11-16-2022 10-11-2019 Chronic Chronic kidney disease (20 sources) Chronic kidney disease stage 3A ; Translations: [Stage 3a chronic kidney disease] Onset: 11-16-2021 11-16-2022 Chronic Chronic kidney disease (1 source) Chronic kidney disease; Translations: [Stage 3a chronic kidney disease (HCC)] Onset: 11-16-2022 Chronic obstructive pulmonary disease and bronchiectasis (20 sources) Asthma-chronic obstructive pulmonary disease overlap syndrome; Translations: [Chronic obstructive pulmonary disease, unspecified] Onset: 10-26-2018 Resolved: 09-12-2019 09-12-2019 Chronic Chronic ulcer of skin (2 sources) Ulcer of lower extremity; Translations: [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] 09-24-2019 Chronic Diabetes mellitus without complication (11 sources) Type 2 diabetes mellitus; Translations: [Type 2 diabetes mellitus without complications] Onset: 06-28-2024 05-30-2024 Chronic Disorders of lipid metabolism (20 sources) Dyslipidemia; Translations: [Hyperlipidemia, unspecified] Onset: 11-16-2021 11-16-2021 Chronic Diverticulosis and diverticulitis (20 sources) Diverticulosis of colon; Translations: [Diverticulosis of large intestine without perforation or abscess without bleeding] 11-07-2006 Chronic E Codes: Fall (2 sources) Falling injury; Translations: [Unspecified fall, initial encounter] 09-11-2024 Episodic Esophageal disorders (20 sources) Gastroesophageal reflux disease; Translations: [Gastro-esophageal reflux disease without esophagitis] Onset: 11-07-2006 11-07-2006 Chronic Essential hypertension (13 sources) Essential hypertension; Translations: [Essential (primary) hypertension] Onset: 09-05-2024 05-30-2024 Chronic Genitourinary symptoms and ill-defined conditions (20 sources) Urge incontinence of urine; Translations: [Urge incontinence] Onset: 11-19-2005 11-07-2006 Chronic Hyperplasia of prostate (20 sources) Benign prostatic hypertrophy with outflow obstruction; Translations: [Benign prostatic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 Radha Berman APRN.APPLICATIONS SPECIALIST - Fully Assessed Reason for Visit: Patient Update [1234] Prescriptions as of 05/29/2024 - losartan (COZAAR) 25 mg tablet Take 25 mg by mouth once daily. - budesonide (PULMICORT) 0.25 mg/2 mL nebulizer solution Use 0.25 mg via nebulizer two times a day. - ipratropium-albuterol (DUONEB) 0.5 mg-3 mg(2.5 mg base)/3 mL nebu Inhale 3 mL as instructed three times a day. - Saccharomyces boulardii (FLORASTOR) 250 mg capsule Take 250 mg by mouth once daily. - furosemide (LASIX) 20 mg tablet Take 1 tablet by mouth as needed. - ELIQUIS 5 mg tab(s) TAKE 1 TABLET TWICE A DAY - rosuvastatin (CRESTOR) 20 mg tablet Take 1 tablet by mouth daily at bedtime. - omeprazole (PRILOSEC) 20 mg capsule Take 1 capsule by mouth once daily. 1/2 hr before meal. - metoprolol tartrate, short acting, (LOPRESSOR) 50 mg tablet Take 1 tablet by mouth two times a day. - calcium citrate/vitamin D3 (CALCIUM CITRATE + D ORAL) Take 800 mg by mouth once daily. - TRELEGY ELLIPTA 200-62.5-25 mcg dsdv Inhale as instructed once daily. 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] 11/20/2007 Hyperglycemia [R73.9] 07/03/2009 GERD (Gastroesophageal Reflux Disease) [K21.9] 08/15/2009 Disorders of bursae and tendons in shoulder reg*10/15/2010 Rotator cuff (capsule) sprain [S43.429A] 10/15/2010 Frequency of micturition [R35.0] 10/21/2016 Overweight (BMI 25.0-29.9) [E66.3] 11/10/2016 Digital mucous cyst of finger of left hand [M67*07/01/2017 Digital mucous cyst of finger [M67.449] 07/27/2017 Asthma with chronic obstructive pulmonary disea*10/26/2018 09/12/2019 Chronic obstructive pulmonary disease (HCC) [J4* Persistent atrial fibrillation (HCC) [I48.19] 10/11/2019 11/12/2021 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] 11/23/2019 Atrial fibrillation, chronic (HCC) [I48.20] 08/26/2020 11/12/2021 Permanent atrial fibrillation (HCC) [I48.21] 08/31/2021 Dyslipidemia [E78.5] 11/16/2021 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*11/16/2021 Vitamin D deficiency [E55.9] 11/16/2021 Atrial fibrillation (HCC) [I48.91] 11/16/2021 11/16/2022 Incomplete bladder emptying [R33.9] 06/29/2022 Poor urinary stream [R39.12] 06/29/2022 Nocturia [R35.1] 06/29/2022 Ex-smoker [Z87.891] 07/29/2022 Pre-op exam [Z01.818] 07/29/2022 Elevated blood pressure reading without diagnos*07/29/2022 Preop examination [Z01.818] 10/20/2022 Stage 3a chronic kidney 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] 11/16/2021 Encounter Status:Closed by [facility] (FAMP[facility] JUAN JOSE FOSTER ([id number]) 1935 M Date Time Provider Department [facility]/21/[facility] During your visit today, we recorded the following information about you: Gabrielle Friedman, LUPE 05/21/2024 4:25 PM Signed Moira with [facility] calling with Nursing plan of care. Nursing will see patient 2 times per week for 1 week , then one time per week for 2 weeks for COPD education, edema monitoring and A-Fib management. No call back needed if provider is agreeable to plan. LUPE Eaton Barbara, RN 05/22/2024 2:34 PM Signed See below note as well from alf. Martina physical therapist from [facility] calling today to update PT plan of care. States 2x/wk for 4 weeks for lower extremity strengthening, gait training, balance and safety awareness. Martina also wanting to notify that pt's BP was elevated 164/101 then repeated it later and was still 156/101. Confirmed what meds pt is taking with both her and pt's . Spoke with and pt saw Radha Berman on 05/16 and was found to have leg swelling. Radha gave them a prescription for Lasix to take for 3 days and then as needed. Pt took on the , and . states the leg swelling is much better. Still some slight swelling but so much better. She states the following BP readings: 150/90 159/103 156/115 160/114 145/107 Today 163/103 Per Martina, pt has Hydralazine on hand prescribed by hospital in [place] when he was admitted. Pt is to take Hydralazine 25 mg 4 times a day as needed for systolic BP > 150. Per Martina, has not been doing this. Spoke with and went over the instructions with her. Told her to take pt's BP 4 times a day. If the systolic BP is > 150, she needs to give him a Hydralazine. Then take it again later and do the same. If the number is below 150, then she is not to give it. She verbalizes understanding. Martina states that nursing is going to start doing daily weights. also instructed to call us back on or Tuesday to let us know how his BP and leg swelling are doing. She verbalizes understanding. Judith Garcia APRN.ESTIVEN 05/22/2024 2:56 PM Signed Thank you for the update, agree with below. Judith Garcia APRN.Carrie Mariscal MA 05/22/2024 4:33 PM Signed Martina informed Carrie Del Angel MA Allergies As of Date: 05/21/2024 Noted Allergy Reaction CYPRESS 09/22/2010 14 - Other: See Comments Comments: sneezing,runny nose CEDAR 08/17/2010 3 - Cough Comments: also [place] with same reaction MOLD 08/17/2010 3 - Cough PREDNISONE 05/16/2024 1 - Mental Status Change Comments: Hallucinations Date Reviewed: 05/16/2024 Reviewed by: Radha Berman APRN.APPLICATIONS SPECIALIST - Fully Assessed Reason for Visit: Home Health Nursing-Plan of Care [Other] Cmt: And physical therapy plan of care Hypertension [168] Prescriptions as of 05/22/2024 - losartan (COZAAR) 25 mg tablet Take 25 mg by mouth once daily. - budesonide (PULMICORT) 0.25 mg/2 mL nebulizer solution Use 0.25 mg via nebulizer two times a day. - ipratropium-albuterol (DUONEB) 0.5 mg-3 mg(2.5 mg base)/3 mL nebu Inhale 3 mL as instructed three times a day. - Saccharomyces boulardii (FLORASTOR) 250 mg capsule Take 250 mg by mouth once daily. - furosemide (LASIX) 20 mg tablet Take 1 tablet by mouth as needed. - ELIQUIS 5 mg tab(s) TAKE 1 TABLET TWICE A DAY - rosuvastatin (CRESTOR) 20 mg tablet Take 1 tablet by mouth daily at bedtime. - omeprazole (PRILOSEC) 20 mg capsule Take 1 capsule by mouth once daily. 1/2 hr before meal. - metoprolol tartrate, short acting, (LOPRESSOR) 50 mg tablet Take 1 tablet by mouth two times a day. - calcium citrate/vitamin D3 (CALCIUM CITRATE + D ORAL) Take 800 mg by mouth once daily. - TRELEGY ELLIPTA 200-62.5-25 mcg dsdv Inhale as instructed once daily. 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 Normal [facility] CNPNon 05-17-2024 [facility] (FAMPWS[facility] JUAN JOSE FOSTER ([id number]) 1935 M Date Time Provider Department 05/17/24 [facility] During your visit today, we recorded the following information about you: Macy Fraser, RN 05/17/2024 3:12 PM Signed [facility] called and asked to have last OV noted faxed over. Faxed to fax # [phone]. Allergies As of Date: 05/17/2024 Noted Allergy Reaction CYPRESS 09/22/2010 14 - Other: See Comments Comments: sneezing,runny nose CEDAR 08/17/2010 3 - Cough Comments: also [place] with same reaction MOLD 08/17/2010 3 - Cough PREDNISONE 05/16/2024 1 - Mental Status Change Comments: Hallucinations Date Reviewed: 05/16/2024 Reviewed by: Radha Berman APRN.APPLICATIONS SPECIALIST - Fully Assessed Reason for Visit: Fax over last OV Note [Other] Prescriptions as of 05/17/2024 - losartan (COZAAR) 25 mg tablet Take 25 mg by mouth once daily. - budesonide (PULMICORT) 0.25 mg/2 mL nebulizer solution Use 0.25 mg via nebulizer two times a day. - ipratropium-albuterol (DUONEB) 0.5 mg-3 mg(2.5 mg base)/3 mL nebu Inhale 3 mL as instructed three times a day. - Saccharomyces boulardii (FLORASTOR) 250 mg capsule Take 250 mg by mouth once daily. - furosemide (LASIX) 20 mg tablet Take 1 tablet by mouth as needed. - ELIQUIS 5 mg tab(s) TAKE 1 TABLET TWICE A DAY - rosuvastatin (CRESTOR) 20 mg tablet Take 1 tablet by mouth daily at bedtime. - omeprazole (PRILOSEC) 20 mg capsule Take 1 capsule by mouth once daily. 1/2 hr before meal. - metoprolol tartrate, short acting, (LOPRESSOR) 50 mg tablet Take 1 tablet by mouth two times a day. - calcium citrate/vitamin D3 (CALCIUM CITRATE + D ORAL) Take 800 mg by mouth once daily. - TRELEGY ELLIPTA 200-62.5-25 mcg dsdv Inhale as instructed once daily. 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] 11/20/2007 Hyperglycemia [R73.9] 07/03/2009 GERD (Gastroesophageal Reflux Disease) [K21.9] 08/15/2009 Disorders of bursae and tendons in shoulder reg*10/15/2010 Rotator cuff (capsule) sprain [S43.429A] 10/15/2010 Frequency of micturition [R35.0] 10/21/2016 Overweight (BMI 25.0-29.9) [E66.3] 11/10/2016 Digital mucous cyst of finger of left hand [M67*07/01/2017 Digital mucous cyst of finger [M67.449] 07/27/2017 Asthma with chronic obstructive pulmonary disea*10/26/2018 09/12/2019 Chronic obstructive pulmonary disease (HCC) [J4* Persistent atrial fibrillation (HCC) [I48.19] 10/11/2019 11/12/2021 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] 11/23/2019 Atrial fibrillation, chronic (HCC) [I48.20] 08/26/2020 11/12/2021 Permanent atrial fibrillation (HCC) [I48.21] 08/31/2021 Dyslipidemia [E78.5] 11/16/2021 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*11/16/2021 Vitamin D deficiency [E55.9] 11/16/2021 Atrial fibrillation (HCC) [I48.91] 11/16/2021 11/16/2022 Incomplete bladder emptying [R33.9] 06/29/2022 Poor urinary stream [R39.12] 06/29/2022 Nocturia [R35.1] 06/29/2022 Ex-smoker [Z87.891] 07/29/2022 Pre-op exam [Z01.818] 07/29/2022 Elevated blood pressure reading without diagnos*07/29/2022 Preop examination [Z01.818] 10/20/2022 Stage 3a chronic kidney 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] 11/16/2021 Encounter Status:Closed by MACY RFASER on 05/17/24 Normal [facility] US DVT LOWER BILon US DVT LOWER KOBI * * *Final Report* * * DATE OF EXAM: May 17 2024 9:20AM WRU 1005 - US DVT LOWER KOBI / PROCEDURE REASON: multiple diagnoses * * * * Physician Interpretation * * * * Examination: US DVT LOWER KOBI History: Hospital discharge follow-up Bilateral leg edema Comparison: None TECHNIQUE: Grayscale with compression maneuvers, color Doppler and spectral Doppler imaging of the right and left proximal deep veins was performed. Grayscale with compression maneuvers of the right and left peroneal and posterior tibial veins was performed. The right and left great and small saphenous veins were evaluated at their insertion to the deep system. Images were obtained and stored in a permanent archive. MQ: USLEB_1 RESULT: RIGHT LOWER EXTREMITY PROXIMAL DEEP VEINS Distal External Iliac, Common Femoral and Proximal Profunda Veins: Compression: Normal Doppler: Normal, spontaneous respirophasic flow. Normal response to augmentation. Femoral vein: Compression: Normal Doppler: Normal, spontaneous respirophasic flow. Normal response to augmentation. Popliteal vein: Compression: Normal Doppler: Normal, spontaneous respirophasic flow. Normal response to augmentation. CALF DEEP VEINS Peroneal veins: Normal compression. Posterior tibial veins: Normal compression. Gastrocnemius and Soleal veins: Not imaged. SUPERFICIAL VEINS Great saphenous: Patent and compressible at insertion into common femoral vein; not otherwise assessed. Small Saphenous: Patent and compressible in the proximal calf, not otherwise assessed. LEFT LOWER EXTREMITY PROXIMAL DEEP VEINS Distal External Iliac, Common Femoral and Proximal Profunda Veins: Compression: Normal Doppler: Normal, spontaneous respirophasic flow. Normal response to augmentation. Femoral vein: Compression: Normal Doppler: Normal, spontaneous respirophasic flow. Normal response to augmentation. Popliteal vein: Compression: Normal Doppler: Normal, spontaneous respirophasic flow. Normal response to augmentation. CALF DEEP VEINS Peroneal veins: Normal compression. Posterior tibial veins: Normal compression. Gastrocnemius and Soleal veins: Not imaged. SUPERFICIAL VEINS Great saphenous: Patent and compressible at insertion into common femoral vein; not otherwise assessed. Small Saphenous: Patent and compressible in the proximal calf, not otherwise assessed. IMPRESSION: Negative study for proximal DVT in the left and right lower extremities. Negative study for calf DVT in the left and right lower extremities. Negative study for superficial thrombophlebitis in the imaged segments of the left and right lower extremities. Supervisor Instrument Repair: PSCB Transcribe Date/Time: May 17 2024 3:38P Dictated by : HENRY PEÑA MD This examination was interpreted and the report reviewed and electronically signed by: HENRY PEÑA MD on May 17 2024 3:42PM EST [id number] Normal [facility] US Lower extremity vein - bi lateralon 05-17-2024 IMPRESSION: Negative study for proximal DVT in the left and right lower extremities. Negative study for calf DVT in the left and right lower extremities. Negative study for superficial thrombophlebitis in the imaged segments of the left and right lower extremities. Supervisor Instrument Repair: BLANK Transcribe Date/Time: May 17 2024 3:38P Dictated by : HENRY PEÑA MD This examination was interpreted and the report reviewed and electronically signed by: HENRY PEÑA MD on May 17 2024 3:42PM [facility] DIVISION OF RADIOLOGY * * *Final Report* * * DATE OF EXAM: May 17 2024 9:20AM WRU 1005 - US DVT LOWER KOBI / PROCEDURE REASON: multiple diagnoses * * * * Physician Interpretation * * * * Examination: US DVT LOWER KOBI History: Hospital discharge follow-up Bilateral leg edema Comparison: None TECHNIQUE: Grayscale with compression maneuvers, color Doppler and spectral Doppler imaging of the right and left proximal deep veins was performed. Grayscale with compression maneuvers of the right and left peroneal and posterior tibial veins was performed. The right and left great and small saphenous veins were evaluated at their insertion to the deep system. Images were obtained and stored in a permanent archive. MQ: USLEB_1 RESULT: RIGHT LOWER EXTREMITY PROXIMAL DEEP VEINS Distal External Iliac, Common Femoral and Proximal Profunda Veins: Compression: Normal Doppler: Normal, spontaneous respirophasic flow. Normal response to augmentation. Femoral vein: Compression: Normal Doppler: Normal, spontaneous respirophasic flow. Normal response to augmentation. Popliteal vein: Compression: Normal Doppler: Normal, spontaneous respirophasic flow. Normal response to augmentation. CALF DEEP VEINS Peroneal veins: Normal compression. Posterior tibial veins: Normal compression. Gastrocnemius and Soleal veins: Not imaged. SUPERFICIAL VEINS Great saphenous: Patent and compressible at insertion into common femoral vein; not otherwise assessed. Small Saphenous: Patent and compressible in the proximal calf, not otherwise assessed. LEFT LOWER EXTREMITY PROXIMAL DEEP VEINS Distal External Iliac, Common Femoral and Proximal Profunda Veins: Compression: Normal Doppler: Normal, spontaneous respirophasic flow. Normal response to augmentation. Femoral vein: Compression: Normal Doppler: Normal, spontaneous respirophasic flow. Normal response to augmentation. Popliteal vein: Compression: Normal Doppler: Normal, spontaneous respirophasic flow. Normal response to augmentation. CALF DEEP VEINS Peroneal veins: Normal compression. Posterior tibial veins: Normal compression. Gastrocnemius and Soleal veins: Not imaged. SUPERFICIAL VEINS Great saphenous: Patent and compressible at insertion into common femoral vein; not otherwise assessed. Small Saphenous: Patent and compressible in the proximal calf, not otherwise assessed. DIVISION OF RADIOLOGY Provider, Edgardo Anguiano - 05/17/2024 * * *Final Report* * * DATE OF EXAM: May 17 2024 9:20AM WRU 1005 - US DVT LOWER KOBI / PROCEDURE REASON: multiple diagnoses * * * * Physician Interpretation * * * * Examination: US DVT LOWER KOBI History: Hospital discharge follow-up Bilateral leg edema Comparison: None TECHNIQUE: Grayscale with compression maneuvers, color Doppler and spectral Doppler imaging of the right and left proximal deep veins was performed. Grayscale with compression maneuvers of the right and left peroneal and posterior tibial veins was performed. The right and left great and small saphenous veins were evaluated at their insertion to the deep system. Images were obtained and stored in a permanent archive. MQ: USLEB_1 RESULT: RIGHT LOWER EXTREMITY PROXIMAL DEEP VEINS Distal External Iliac, Common Femoral and Proximal Profunda Veins: Compression: Normal Doppler: Normal, spontaneous respirophasic flow. Normal response to augmentation. Femoral vein: Compression: Normal Doppler: Normal, spontaneous respirophasic flow. Normal response to augmentation. Popliteal vein: Compression: Normal Doppler: Normal, spontaneous respirophasic flow. Normal response to augmentation. CALF DEEP VEINS Peroneal veins: Normal compression. Posterior tibial veins: Normal compression. Gastrocnemius and Soleal veins: Not imaged. SUPERFICIAL VEINS Great saphenous: Patent and compressible at insertion into common femoral vein; not otherwise assessed. Small Saphenous: Patent and compressible in the proximal calf, not otherwise assessed. LEFT LOWER EXTREMITY PROXIMAL DEEP VEINS Distal External Iliac, Common Femoral and Proximal Profunda Veins: Compression: Normal Doppler: Normal, spontaneous respirophasic flow. Normal response to augmentation. Femoral vein: Compression: Normal Doppler: Normal, spontaneous respirophasic flow. Normal response to augmentation. Popliteal vein: Compression: Normal Doppler: Normal, spontaneous respirophasic flow. Normal response to augmentation. CALF DEEP VEINS Peroneal veins: Normal compression. Posterior tibial veins: Normal compression. Gastrocnemius and Soleal veins: Not imaged. SUPERFICIAL VEINS Great saphenous: Patent and compressible at insertion into common femoral vein; not otherwise assessed. Small Saphenous: Patent and compressible in the proximal calf, not otherwise assessed. IMPRESSION IMPRESSION: Negative study for proximal DVT in the left and right lower extremities. Negative study for calf DVT in the left and right lower extremities. Negative study for superficial thrombophlebitis in the imaged segments of the left and right lower extremities. Supervisor Instrument Repair: BLANK Transcribe Date/Time: May 17 2024 3:38P Dictated by : HENRY PEÑA MD This examination was interpreted and the report reviewed and electronically signed by: HENRY PEÑA MD on May 17 2024 3:42PM EST [facility] Radiology Study observation (narrative) [facility] US Lower extremity vein - bi lateralOrdered By: Ccf Provider on 05-17-2024 [facility] CBC W Auto Differential pane l (Bld)on 05-16-2024 Basophils (Bld) [#/Vol] 0.1 10*3/uL [facility] Basophils/100 WBC (Bld) 1 % [facility] Differential cell count method Nom (Bld) Auto [facility] Eosinophils (Bld) [#/Vol] 0.35 10*3/uL [facility] Eosinophils/100 WBC (Bld) 3.4 % [facility] Erythrocyte distribution width (RBC) [Ratio] 14.7 % 11.5 - 15.0 % [facility] [facility] Hematocrit (Bld) [Volume fraction] 45.5 % 39.0 - 51.0 % [facility] Hemoglobin (Bld) [Mass/Vol] 14.9 g/dL 13.0 - 17.0 g/dL [facility] Immature granulocytes (Bld) [#/Vol] 0.11 10*3/uL High [facility] Immature granulocytes/100 WBC (Bld) 1.1 % [facility] Interpretation and review of laboratory results Abnormal [facility] Lymphocytes (Bld) [#/Vol] 2.01 10*3/uL [facility] Lymphocytes/100 WBC (Bld) 19.5 % [facility] MCH (RBC) [Entitic mass] 30 pg 26.0 - 34.0 pg [facility] MCHC (RBC) [Mass/Vol] 32.7 g/dL 30.5 - 36.0 g/dL [facility] MCV (RBC) [Entitic vol] 91.7 fL 80.0 - 100.0 fL [facility] Monocytes (Bld) [#/Vol] 1.29 10*3/uL High NINF [facility] Monocytes/100 WBC (Bld) 12.5 % [facility] Neutrophils (Bld) [#/Vol] 6.47 10*3/uL [facility] Neutrophils/100 WBC (Bld) 62.5 % [facility] Nucleated RBC (Bld) [#/Vol] NINF [facility] Nucleated RBC/100 WBC (Bld) [Ratio] 0 % /100 WBC [facility] Platelet mean volume (Bld) [Entitic vol] 10.5 fL 9.0 - 12.7 fL [facility] Platelets (Bld) [#/Vol] 220 10*3/uL [facility] RBC (Bld) [#/Vol] 4.96 10*6/uL 4.20 - 6.0 0 m/uL [facility] WBC (Bld) [#/Vol] 10.33 10*3/uL [facility] Basophils (Bld) [#/Vol] 0.10 10*3/uL Normal <0.11 [facility] 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: Order Comment: Speci men Type: BLOOD SPECIMENOrdering Facility: [facility] Address: [address] [place] [address] Performed By: #### 5 7021-8 ####[facility] LABCLIA [id number] [place] [address] [place] Basophils/100 WBC (Bld) 1.0 % Normal [facility] 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: Order Comment: Speci men Type: BLOOD SPECIMENOrdering Facility: [facility] Address: [address] [place] [address] Performed By: #### 5 7021-8 ####[facility] LABCLIA [id number] [place] [address] [place] Differential cell count method Nom (Bld) Auto Normal [facility] 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: Order Comment: Speci men Type: BLOOD SPECIMENOrdering Facility: [facility] Address: [address] [place] [address] Performed By: #### 5 7021-8 ####[facility] LABCLIA [id number] [place] [address] [place] Eosinophils (Bld) [#/Vol] 0.35 10*3/uL Normal <0.46 [facility] 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: Order Comment: Speci men Type: BLOOD SPECIMENOrdering Facility: [facility] Address: [address] [place] [address] Performed By: #### 5 7021-8 ####[facility] LABCLIA [id number] [place] [address] [place] Eosinophils/100 WBC (Bld) 3.4 % Normal [facility] 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: Order Comment: Speci men Type: BLOOD SPECIMENOrdering Facility: [facility] Address: [address] [place] [address] Performed By: #### 5 7021-8 ####[facility] LABCLIA [id number] [place] [address] [place] Erythrocyte distribution width (RBC) [Ratio] 14.7 % Normal 11.5-15.0 [facility] 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: Order Comment: Speci men Type: BLOOD SPECIMENOrdering Facility: [facility] Address: [address] [place] [address] Performed By: #### 5 7021-8 ####[facility] LABCLIA [id number] [place] [address] [place] Hematocrit (Bld) [Volume fraction] 45.5 % Normal 39.0-51.0 [facility] 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: Order Comment: Speci men Type: BLOOD SPECIMENOrdering Facility: [facility] Address: [address] [place] [address] Performed By: #### 5 7021-8 ####[facility] LABCLIA [id number] [address], [facility] [place] Hemoglobin (Bld) [Mass/Vol] 14.9 g/dL Normal 13.0-17.0 [facility] 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: Order Comment: Speci men Type: BLOOD SPECIMENOrdering Facility: [facility] Address: [address] [place] [address] Performed By: #### 5 7021-8 ####[facility] LABCLIA [id number] [place] [id number] [place] Immature granulocytes (Bld) [#/Vol] 0.11 10*3/uL High <0.10 [facility] 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: Order Comment: Speci men Type: BLOOD SPECIMENOrdering Facility: [facility] Address: [address] [place] [address] Performed By: #### 5 7021-8 ####[facility] LABCLIA [id number] [place] [address] [place] Immature granulocytes/100 WBC (Bld) 1.1 % Normal [facility] 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: Order Comment: Speci men Type: BLOOD SPECIMENOrdering Facility: [facility] Address: [address] [place] [address] Performed By: #### 5 7021-8 ####[facility] LABCLIA [id number] [place] [address] [place] Lymphocytes (Bld) [#/Vol] 2.01 10*3/uL Normal 1.00-4.00 [facility] 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: Order Comment: Speci men Type: BLOOD SPECIMENOrdering Facility: [facility] Address: [address] [place] [address] Performed By: #### 5 7021-8 ####[facility] LABCLIA [id number] [place] [id number] [place] Lymphocytes/100 WBC (Bld) 19.5 % Normal [facility] 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: Order Comment: Speci men Type: BLOOD SPECIMENOrdering Facility: [facility] Address: [address] [place] [address] Performed By: #### 5 7021-8 ####[facility] LABIA [id number] [place] [address] [place] MCH (RBC) [Entitic mass] 30.0 pg Normal 26.0-34.0 [facility] 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: Order Comment: Speci men Type: BLOOD SPECIMENOrdering Facility: [facility] Address: [address] [place] [address] Performed By: #### 5 7021-8 ####[facility] LABIA [id number] [place] [address] [place] MCHC (RBC) [Mass/Vol] 32.7 g/dL Normal 30.5-36.0 [facility] 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: Order Comment: Speci men Type: BLOOD SPECIMENOrdering Facility: [facility] Address: [address] [place] [address] Performed By: #### 5 7021-8 ####[facility] [id number] [place] [address] [place] MCV (RBC) [Entitic vol] 91.7 fL Normal 80.0-100.0 [facility] 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: Order Comment: Speci men Type: BLOOD SPECIMENOrdering Facility: [facility] Address: [address] [place] [address] Performed By: #### 5 7021-8 ####[facility] [id number] [place] [address] [place] Monocytes (Bld) [#/Vol] 1.29 10*3/uL High <0.87 [facility] 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: Order Comment: Speci men Type: BLOOD SPECIMENOrdering Facility: [facility] Address: [address] [place] [address] Performed By: #### 5 7021-8 ####[facility] LABIA [id number] [address] [place] Monocytes/100 WBC (Bld) 12.5 % Normal [facility] 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: Order Comment: Speci men Type: BLOOD SPECIMENOrdering Facility: [facility] Address: [address] [place] [address] Performed By: #### 5 7021-8 ####[facility] LABCLIA [id number] [address] [address] [place] Neutrophils (Bld) [#/Vol] 6.47 10*3/uL Normal 1.45-7.50 [facility] 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: Order Comment: Speci men Type: BLOOD SPECIMENOrdering Facility: [facility] Address: [address] [place] [address] Performed By: #### 5 7021-8 ####[facility] LABCLIA [id number] [place] [address] [place] Neutrophils/100 WBC (Bld) 62.5 % Normal [facility] 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: Order Comment: Speci men Type: BLOOD SPECIMENOrdering Facility: [facility] Address: [address] [place] [address] Performed By: #### 5 7021-8 ####[facility] LABCLIA [id number] [place] [address] [place] Nucleated RBC (Bld) [#/Vol] 10*3/uL Normal <0.01 [facility] 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: Order Comment: Speci men Type: BLOOD SPECIMENOrdering Facility: [facility] Address: [address] [place] [address] Performed By: #### 5 7021-8 ####[facility] LABCLIA [id number] [place] [address] [place] Nucleated RBC/100 WBC (Bld) [Ratio] 0.0 /100 WBC Normal [facility] 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: Order Comment: Speci men Type: BLOOD SPECIMENOrdering Facility: [facility] Address: [address] [place] [address] Performed By: #### 5 7021-8 ####[facility] LABCLIA [id number] [facility] [address] [place] [address] [place] Platelet mean volume (Bld) [Entitic vol] 10.5 fL Normal 9.0-12.7 [facility] 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: Order Comment: Speci men Type: BLOOD SPECIMENOrdering Facility: [facility] Address: [address] [place] [address] Performed By: #### 5 7021-8 ####[facility] LABCLIA [id number] [facility] [address] [place] [address] [place] Platelets (Bld) [#/Vol] 220 10*3/uL Normal 150-400 [facility] 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: Order Comment: Speci men Type: BLOOD SPECIMENOrdering Facility: [facility] Address: [address] [place] [address] Performed By: #### 5 7021-8 ####[facility] LABIA [id number] [address], [place] [address] [place] RBC (Bld) [#/Vol] 4.96 10*6/uL Normal 4.20-6.00 [facility] 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: Order Comment: Speci men Type: BLOOD SPECIMENOrdering Facility: [facility] Address: [address] [place] [address] Performed By: #### 5 7021-8 ####[facility] LABIA [id number] [address] [place] [address] [place] WBC (Bld) [#/Vol] 10.33 10*3/uL Normal 3.70-11.00 [facility] 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: Order Comment: Speci men Type: BLOOD SPECIMENOrdering Facility: [facility] Address: [address] [place] [address] Performed By: #### 5 7021-8 ####[facility] LABIA [id number] [address] [address] [place] [facility] CNOVon 05-16-2024 CNOV Office Visit (FAMPWS ) JUAN JOSE FOSTER ([id number]) 1935 M Date Time Provider Department 05/16/24 1:00 PM RADHA BERMAN FAMPWS During your visit today, we recorded the following information about you: Pulse Respiration Blood pressure Weight 87/minute 16/minute 130/68 96.3 kg Radha Berman, [employer]OUNTAIN JERK.APPLICATIONS SPECIALIST 05/16/2024 6:48 PM Signed Chief Complaint Patient presents with: needs referral for pt and ot and uology referral HPI Juan Jose Foster is a 89 year old male who presents here today for Above Complaints. Juan Jose is an established patient of Dr. Jeff DO. Pt was admitted to [facility] in [place] on 04/13 and 04/15. 04/13-- dx with COPD exacerbation. Found inpatient to have influenza A. Pt refused steroid d/t side effects and left AMA the following day. 04/15 -- pt returned to ED d/t worsening SOB and dx with acute hypoxia respiratory failure. Admitted to ICU and intubated. Blood cultures + for staph. Dx with pneumonia and septic shock. Concern for Zenker's diverticulum while inpatient per notes. Was tachycardic afib RVR during inpatient. Hx of dementia, disoriented most of admission per notes. Pt was eventually discharged from hospital on 04/28 and sent to acute rehab facility. Pt was discharged from rehab facility on 05/11 and drove back to [place] with and daughter. Hx of CVA in December. Never followed up with neurology d/t going to [place] for the winter months just after this. and daughter report slowly worsening confusion and cognitive status since this stroke but significantly worse since the most recent hospital visit in Mar. Never combative but he is getting agitated occasionally at nighttime. Hx of likely dementia per family. Leg edema, bilateral but L significantly worse than R -- This is new for patient in the last 1-2 weeks. Hx of 3rd degree reed on legs so hard to assess swelling. Swelling and calf pain mainly to L leg. Family reports legs elevated entire drive from [place] Denies any SOB. Pt is on eliquis since stroke. Needs assistance at home. Currently lives at home back in [place] with . Daughter lives nearby to help. Does not want to move into assistive living or chcf. Daughter agrees if they can get PT, OT, home health aide, and group home to come to home, he should be okay to stay at home. Asking how to get all of this set up. Also needs electric chair lift x2 to go up the stairs. No falls since discharge -- none in rehab and none at home so far. Asking about BP medication -- was given prn hydralazine at discharge to take if systolic BP > 150. and daughter concerned about being in charge of determining this. He did get new BP cuff today to check daily readings. This is part of the reason they need nurse in home to help. Last 14 Encounter BP Readings: Date: BP: 05/16/2024 130/68 11/29/2023 126/78 09/12/2023 145/99 11/17/2022 120/80 10/20/2022 120/91 10/19/2022 140/86 10/12/2022 126/72 08/31/2022 110/70 08/05/2022 106/79 07/29/2022 165/95 07/26/2022 128/84 07/20/2022 144/103 07/20/2022 144/90 07/01/2022 128/76 Needs help to rescheduled urology appointment that got cancelled by provider. Respiratory -- Has pulmonology and cardiology appointments scheduled for June. No SOB since discharge from rehab. No oxygen needs. Complains of bilateral lower extremity edema that started a couple months ago; before being admitted to the hospital on 04/13. Denies being started on any diuretic. Traveled by car from [place] to [place] yesterday. Reports having legs elevated during the entire travel time. States this is something new for him. Denies numbness, tingling, pain. Past medical history, appointments, medications, allergies reviewed. 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 Followed by [facility]. Previous Surgical History PAST SURGICAL HISTORY Procedure Laterality Date ARTHRP ACETBLR/PROX FEM PROSTC AGRFT/ALGRFT Bilateral 2012 CHEMOSURG MOHS 1ST STAGE Right 06/09/2017 Moh's surgery - right lower leg COLONOSCOPY 06/07/2016 [facility] COLONOSCOPY FLX DX W/COLLJ SPEC WHEN PFRMD 08/07/1999 Colonoscopy COLONOSCOPY FLX DX W/COLLJ SPEC WHEN PFRMD 11/18/2005 Colonoscopy COLONOSCOPY FLX DX W/COLLJ SPEC WHEN PFRMD 11/05/2010 Colonoscopy COLONOSCOPY FLX DX W/COLLJ SPEC WHEN PFRM (more content not included)... Normal [facility] Comprehensive metabolic 2000 panelon 05-16-2024 Albumin [Mass/Vol] 3.8 g/dL Low 3.9-4.9 [facility] 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: Order Comment: Speci men Type: BLOOD SPECIMENOrdering Facility: [facility] Address: [address] [place] [address] Performed By: #### 3 016-3, 06310-2, 91558-5, 90177-6 ####[facility] LABCLIA [id number] [place] [address] [place] ALP [Catalytic activity/Vol] 126 U/L High 38-113 [facility] 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: Order Comment: Speci men Type: BLOOD SPECIMENOrdering Facility: [facility] Address: [address] [place] [address] Performed By: #### 3 016-3, 58290-8, 04178-3, 61334-5 ####[facility] LABCLIA [id number] [place] [address] [place] ALT [Catalytic activity/Vol] 16 U/L Normal 10-54 [facility] 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: Order Comment: Speci men Type: BLOOD SPECIMENOrdering Facility: [facility] Address: [address] [place] [address] Performed By: #### 3 016-3, 99571-7, 63388-2, 64006-0 ####[facility] LABCLIA [id number] [place] [address] [place] Anion gap [Moles/Vol] 10 mmol/L Normal 8-15 [facility] 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: Order Comment: Speci men Type: BLOOD SPECIMENOrdering Facility: [facility] Address: [address] [place] [address] Performed By: #### 3 016-3, 59516-5, 31404-0, 50409-5 ####[facility] LABCLIA [id number] [place] [address] [place] AST [Catalytic activity/Vol] 26 U/L Normal 14-40 [facility] 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: Order Comment: Speci men Type: BLOOD SPECIMENOrdering Facility: [facility] Address: [address] [place] [address] Performed By: #### 3 016-3, 58206-8, 16179-9, 27217-1 ####[facility] LABCLIA [id number] [place] [address] [place] Bilirubin [Mass/Vol] 0.9 mg/dL Normal 0.2-1.3 [facility] 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: Order Comment: Speci men Type: BLOOD SPECIMENOrdering Facility: [facility] Address: [address] [place] [address] Performed By: #### 3 016-3, 51113-9, 92187-3, 74053-0 ####[facility] LABCLIA [id number] [place] [id number] [place] Calcium [Mass/Vol] 10.2 mg/dL Normal 8.5-10.2 [facility] 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: Order Comment: Speci men Type: BLOOD SPECIMENOrdering Facility: [facility] Address: [address] [place] [address] Performed By: #### 3 016-3, 22389-2, 39632-9, 46025-1 ####[facility] LABCLIA [id number] [place] [address] [place] Chloride [Moles/Vol] 106 mmol/L Normal 98-107 [facility] 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: Order Comment: Speci men Type: BLOOD SPECIMENOrdering Facility: [facility] Address: [address] [place] [address] Performed By: #### 3 016-3, 15360-0, 76298-5, 79536-8 ####[facility] LABCLIA [id number] [place] [address] [place] CO2 [Moles/Vol] 26 mmol/L Normal 22-30 [facility] 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: Order Comment: Speci men Type: BLOOD SPECIMENOrdering Facility: [facility] Address: [address] [place] [address] Performed By: #### 3 016-3, 07160-7, 35484-8, 06810-1 ####[facility] LABCLIA [id number] [place] [address] [place] Creatinine [Mass/Vol] 1.29 mg/dL High 0.73-1.22 [facility] 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: Order Comment: Speci men Type: BLOOD SPECIMENOrdering Facility: [facility] Address: [address] [place] [address] Performed By: #### 3 016-3, 43916-7, 53960-8, 04880-2 ####[facility] LABCLIA [id number] [place] [id number] [place] Creatinine and Glomerular filtration rate.predicted panel (S/P/Bld) 53 mL/min/1.73m??? Low >=60 [facility] 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: Order Comment: Jayson moffett Type: BLOOD SPECIMENOrdering Facility: [facility] Address: [address] [place] [address] Result Comment: Yani mated Glomerular Filtration Rate (eGFR) is calculated using the 2020 CKD-EPI creatinine equation. This equation utilizes serum creatinine, sex, and age as parameters. The creatinine assay has traceable calibration to isotope dilution-mass spectrometry. Refer to KDIGO guidelines for clinical interpretation. In patients with unstable renal function, e.g. those with acute kidney injury, the eGFR may not accurately reflect actual GFR. Performed By: #### 3 016-3, 45818-7, 49422-4, 13616-3 ####[facility] LABCLIA [id number] [place] [id number] [place] Glucose [Mass/Vol] 117 mg/dL High 74-99 [facility] 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: Order Comment: Jayson moffett Type: BLOOD SPECIMENOrdering Facility: [facility] Address: [address] [place] [address] Result Comment: The [place] Diabetes Association (ADA) provides guidance for cutoff values for fasting glucose and random glucose. The ADA defines fasting as no caloric intake for at least 8 hours. Fasting plasma glucose results between 100 to 125 mg/dL indicate increased risk for diabetes (prediabetes). Fasting plasma glucose results greater than or equal to 126 mg/dL meet the criteria for diagnosis of diabetes. In the absence of unequivocal hyperglycemia, results should be confirmed by repeat testing. In a patient with classic symptoms of hyperglycemia or hyperglycemic crisis, random plasma glucose results greater than or equal to 200 mg/dL meet the criteria for diagnosis of diabetes. Reference: Standards of Medical Care in Diabetes 2016, [place] Diabetes Association. Diabetes Care. 2016.39(Suppl 1). Performed By: #### 3 016-3, 02638-2, 52561-8, 37767-5 ####[facility] LABCLIA [id number] [address] [address] [place] Potassium [Moles/Vol] 4.2 mmol/L Normal 3.7-5.1 [facility] 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: Order Comment: Speci men Type: BLOOD SPECIMENOrdering Facility: [facility] Address: [address] [place] [address] Performed By: #### 3 016-3, 16112-8, 74090-3, 97297-9 ####[facility] LABCLIA [id number] [facility] [address] [address] [place] Protein [Mass/Vol] 7.3 g/dL Normal 6.3-8.0 [facility] 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: Order Comment: Speci men Type: BLOOD SPECIMENOrdering Facility: [facility] Address: [address] [place] [address] Performed By: #### 3 016-3, 38210-6, 57272-7, 45827-8 ####[facility] LABCLIA [id number] [place] [id number] [place] Sodium [Moles/Vol] 142 mmol/L Normal 136-144 [facility] 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: Order Comment: Speci men Type: BLOOD SPECIMENOrdering Facility: [facility] Address: [address] [place] [address] Performed By: #### 3 016-3, 97609-3, 14698-9, 72578-1 ####[facility] LABCLIA [id number] [place] [id number] [place] Urea nitrogen [Mass/Vol] 21 mg/dL Normal 9-24 [facility] 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: Order Comment: Speci men Type: BLOOD SPECIMENOrdering Facility: [facility] Address: [address] [place] [address] Performed By: #### 3 016-3, 41178-7, 69790-5, 73469-6 ####[facility] LABCLIA [id number] [facility] [address] [place] [address] [place] HbA1c (Bld)on 05-16-2024 Average glucose Estimated from glycated hemoglobin (Bld) [Mass/Vol] 148 mg/dL [facility] 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: eAG: (Estimated aver age glucose) is a calculated value from HgbA1c and is pharmaceutical sales representative of the average blood glucose level in the last 2-3 month period. HbA1c (Bld) [Mass fraction] 6.8 % High 4.3 - 5.6 % [facility] 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: [place] Diabetes As sociation guidelines indicate that patients with HgbA1c in the range 5.7-6.4% are at increased risk for development of diabetes, and intervention by lifestyle modification may be beneficial. HgbA1c greater or equal to 6.5% is considered diagnostic of diabetes. Interpretation and review of laboratory results Abnormal [facility] Average glucose Estimated from glycated hemoglobin (Bld) [Mass/Vol] 148 mg/dL Normal [facility] 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: Order Comment: Jayson moffett Type: BLOOD SPECIMENOrdering Facility: [facility] Address: [address] [place] [address] Result Comment: eAG: (Estimated average glucose) is a calculated value from HgbA1c and is pharmaceutical sales representative of the average blood glucose level in the last 2-3 month period. Performed By: #### 5 5454-3 ####[facility] LABCLIA [id number] [place] [address] [place] HbA1c (Bld) [Mass fraction] 6.8 % High 4.3-5.6 [facility] 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: Order Comment: Jayson moffett Type: BLOOD SPECIMENOrdering Facility: [facility] Address: [address] [place] [address] Result Comment: Amer ican Diabetes Association guidelines indicate that patients with HgbA1c in the range 5.7-6.4% are at increased risk for development of diabetes, and intervention by lifestyle modification may be beneficial. HgbA1c greater or equal to 6.5% is considered diagnostic of diabetes. Performed By: #### 5 5454-3 ####[facility] LABCLIA [id number] [address] [address] [place] Lipid 1996 panelon 5 Cholesterol [Mass/Vol] 65 mg/dL Normal <200 [facility] 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: Order Comment: Speci men Type: BLOOD SPECIMENOrdering Facility: [facility] Address: [address] [place] [address] Result Comment: <200 mg/dL, Desirable 200-239 mg/dL, Borderline high >239 mg/dL, High Performed By: #### 3 016-3, 21465-0, 55358-9, 44485-7 ####[facility] LABCLIA [id number] [facility] [id number], [facility] [place] Cholesterol in HDL [Mass/Vol] 27 mg/dL Low >39 [facility] 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: Order Comment: Speci men Type: BLOOD SPECIMENOrdering Facility: [facility] Address: [address] [place] [address] Result Comment: 40-5 9 mg/dL, Acceptable >59 mg/dL, High: Negative risk factor for coronary heart disease <40 mg/dL, Low: Positive risk factor for coronary heart disease Performed By: #### 3 016-3, 71914-8, 20721-7, 70385-6 ####[facility] LABCLIA [id number] [address] [id number], [facility] [place] Cholesterol in LDL [Mass/Vol] 21 mg/dL Normal <100 [facility] 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: Order Comment: Speci men Type: BLOOD SPECIMENOrdering Facility: [facility] Address: [address] [place] [address] Result Comment: <100 mg/dL, Optimal 100-129 mg/dL, Near optimal/above optimal 130-159 mg/dL, Borderline high 160-189 mg/dL, High >189 mg/dL, Very high Secondary prevention optimal LDL Cholesterol levels are recommended to be < 70 mg/dL Performed By: #### 3 016-3, 39701-6, 69737-0, 22842-7 ####[facility] LABCLIA [id number] [address] [id number], [place] [address] [place] Cholesterol in LDL/Cholesterol in HDL [Mass ratio] 0.78 {ratio} Normal <2.54 [facility] 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: Order Comment: Speci men Type: BLOOD SPECIMENOrdering Facility: [facility] Address: [address] [place] [address] Result Comment: Joanne tate: 1. National Cholesterol Education Program ATP III Guideline At-A-Glance Quick Desk Reference: National Heart, Lung, and Blood Milner. National Institutes of Health. 2001: NIH Publication No. 01-3305. 2. An International Atherosclerosis Society position paper: global recommendations for the management of dyslipidemia: executive summary, Atherosclerosis. 2014: 232(2):410-413. Performed By: #### 3 016-3, 49131-6, 90903-3, 69896-3 ####[facility] LABCLIA [id number] [place] [address] [place] Cholesterol in VLDL [Mass/Vol] 17 mg/dL Normal <30 [facility] 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: Order Comment: Speci men Type: BLOOD SPECIMENOrdering Facility: [facility] Address: [address] [place] [address] Performed By: #### 3 016-3, 18630-0, 88537-2, 43137-4 ####[facility] LABCLIA [id number] [place] [address] [place] Cholesterol non HDL [Mass/Vol] 38 mg/dL Normal <130 [facility] 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: Order Comment: Speci men Type: BLOOD SPECIMENOrdering Facility: [facility] Address: [address] [place] [address] Result Comment: <130 mg/dL, Optimal 130-159 mg/dL, Near optimal/above optimal 160-189 mg/dL, Borderline high 190-219 mg/dL, High >219 mg/dL, Very high Secondary prevention optimal non HDL Cholesterol levels are recommended to be <100 mg/dL Performed By: #### 3 016-3, 07672-5, 86150-7, 99352-3 ####[facility] LABCLIA [id number] [place] [address] [place] Cholesterol.total/C holesterol in HDL [Mass ratio] 2.41 {ratio} Normal <5.10 [facility] 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: Order Comment: Speci men Type: BLOOD SPECIMENOrdering Facility: [facility] Address: [address] [place] [address] Performed By: #### 3 016-3, 68972-1, 60637-5, 82388-1 ####[facility] LABIA [id number] [address] [place] FASTING TIME 3 hrs Normal [facility] 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: Order Comment: Speci men Type: BLOOD SPECIMENOrdering Facility: [facility] Address: [address] [place] [address] Performed By: #### 3 016-3, 21273-2, 82663-9, 99385-8 ####[facility] LABIA [id number] [place] [address] [place] Triglyceride [Mass/Vol] 85 mg/dL Normal <150 [facility] 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: Order Comment: Speci men Type: BLOOD SPECIMENOrdering Facility: [facility] Address: [address] [place] [address] Result Comment: <150 mg/dL, Normal 150-199 mg/dL, Borderline high 200-499 mg/dL, High >499 mg/dL, Very high Performed By: #### 3 016-3, 54525-6, 73079-9, 38339-9 ####[facility] LABIA [id number] [place] [address] [place] NT-proBNP [facility] [place] 05-16 Natriuretic peptide.B prohormone N-Terminal [Mass/Vol] 3593 pg/mL High <450 [facility] 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: Order Comment: Speci men Type: BLOOD SPECIMENOrdering Facility: [facility] Address: [address] [place] [address] Performed By: #### 3 016-3, 41634-3, 50658-9, 23474-4 ####[facility] LABCLIA [id number] [place] [id number] [facility] OF [place] TSH SerPl-aCncon 05-16-2024 TSH Qn 2.660 m[IU]/L Normal 0.270-4.200 [facility] 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: Order Comment: Speci men Type: BLOOD SPECIMENOrdering Facility: [facility] Address: [address] [place] [address] [place] [address] Performed By: #### 3 016-3, 17305-0, 34458-6, 89753-7 ####[facility] LABIA [id number] [address] OF [facility] Catie 01-31-2024 CNPN Telephone (CAWSTR) JUAN JOSE FOSTER ([id number]) 1935 M Date Time Provider Department 01/31/24 ANALISA NICOLE [facility] During your visit today, we recorded the following information about you: Vale Jack RN 01/31/2024 1:10 PM Signed ----- Message from Denae Villareal RN sent at 01/31/2024 12:47 PM EST ----- ----- Message ----- From: Analisa Nicole MD Sent: 01/31/2024 11:59 AM EST To: Denae Poole RN Normal stress Please inform patient Vale Wolff RN 01/31/2024 1:16 PM Signed Patient called and given the below results. Vale Jack RN Allergies As of Date: 01/31/2024 Noted Allergy Reaction CYPRESS 09/22/2010 14 - Other: See Comments Comments: sneezing,runny nose CEDAR 08/17/2010 3 - Cough Comments: also [place] with same reaction MOLD 08/17/2010 3 - Cough Date Reviewed: 12/12/2023 Reviewed by: Nessa Ingram, RT(R) - Partially Assessed Prescriptions as of 01/31/2024 - rosuvastatin (CRESTOR) 20 mg tablet Take 1 tablet by mouth daily at bedtime. - omeprazole (PRILOSEC) 20 mg capsule Take 1 capsule by mouth once daily. 1/2 hr before meal. - metoprolol tartrate, short acting, (LOPRESSOR) 50 mg tablet Take 1 tablet by mouth two times a day. - apixaban (ELIQUIS) 5 mg tab(s) Take 1 tablet by mouth two times a day. - calcium citrate/vitamin D3 (CALCIUM CITRATE + D ORAL) Take 800 mg by mouth once daily. - TRELEGY ELLIPTA 200-62.5-25 mcg dsdv Inhale as instructed once daily. Problem List As Of Date 01/31/2024 Noted Resolved BENIGN NEOPLASM LG BOWEL [D12.6] FAMILY HX COLON CANCER [Z80.0] DIVERTICULOSIS OF COLON W/O BLEED [K57.30] URGE INCONTINENCE [N39.41] 11/19/2005 ESOPHAGEAL REFLUX [K21.9] 11/07/2006 Urinary incontinence [R32] 11/14/2007 PROSTATIC DISORDER NOS [N42.9] 11/14/2007 INSOMNIA NOS [G47.00] 11/14/2007 BPH with obstruction/lower urinary tract sympto*11/20/2007 Bladder neck stricture [N32.0] 11/20/2007 Hyperglycemia [R73.9] 07/03/2009 GERD (Gastroesophageal Reflux Disease) [K21.9] 08/15/2009 Disorders of bursae and tendons in shoulder reg*10/15/2010 Rotator cuff (capsule) sprain [S43.429A] 10/15/2010 Frequency of micturition [R35.0] 10/21/2016 Overweight (BMI 25.0-29.9) [E66.3] 11/10/2016 Digital mucous cyst of finger of left hand [M67*07/01/2017 Digital mucous cyst of finger [M67.449] 07/27/2017 Asthma with chronic obstructive pulmonary disea*10/26/2018 09/12/2019 Chronic obstructive pulmonary disease (HCC) [J4* Persistent atrial fibrillation (HCC) [I48.19] 10/11/2019 11/12/2021 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] 11/23/2019 Atrial fibrillation, chronic (HCC) [I48.20] 08/26/2020 11/12/2021 Permanent atrial fibrillation (HCC) [I48.21] 08/31/2021 Dyslipidemia [E78.5] 11/16/2021 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*11/16/2021 Vitamin D deficiency [E55.9] 11/16/2021 Atrial fibrillation (HCC) [I48.91] 11/16/2021 11/16/2022 Incomplete bladder emptying [R33.9] 06/29/2022 Poor urinary stream [R39.12] 06/29/2022 Nocturia [R35.1] 06/29/2022 Ex-smoker [Z87.891] 07/29/2022 Pre-op exam [Z01.818] 07/29/2022 Elevated blood pressure reading without diagnos*07/29/2022 Preop examination [Z01.818] 10/20/2022 Stage 3a chronic kidney 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] 11/16/2021 Encounter Status:Closed by VALE [facility] JUAN JOSE FOSTER ([id number]) 1935 M Date Time Provider Department 01/09/24 [facility] During your visit today, we recorded the following information about you: Monica Vernon, CRISTOFER 01/09/2024 1:28 PM Signed Pt calls states has been trying to take the atorvastatin but keeps getting terrible diarrhea. Asking if something different could be called into pharmacy in its place. Pt is [facility] wanting this called to [facility] on [facility] . Dipak Aguilar DO 01/10/2024 4:26 PM Signed Please have patient stop the lipitor and trial on rx as below Dipak Aguilar DO The following approved medication requests have been transmitted electronically. Requested Prescriptions Signed Prescriptions Disp Refills rosuvastatin (CRESTOR) 20 mg tablet 90 tablet 1 Sig: Take 1 tablet by mouth daily at bedtime. Authorizing Provider: DIPAK AGUILAR DO Detwiler-Green, Susan LPN 01/10/2024 4:32 PM Signed Pt. informed. Allergies As of Date: 01/09/2024 Noted Allergy Reaction CYPRESS 09/22/2010 14 - Other: See Comments Comments: sneezing,runny nose CEDAR 08/17/2010 3 - Cough Comments: also [place] with same reaction MOLD 08/17/2010 3 - Cough Date Reviewed: 12/12/2023 Reviewed by: Nessa Ingram, RT(R) - Partially Assessed Reason for Visit: Medication Problem [65] Order(s):rosuvastatin (CRESTOR) 20 mg tabletTake 1 tablet by mouth daily at bedtime.Disp: 90 tabletRfl: 1 Prescriptions as of 01/10/2024 - rosuvastatin (CRESTOR) 20 mg tablet Take 1 tablet by mouth daily at bedtime. - omeprazole (PRILOSEC) 20 mg capsule Take 1 capsule by mouth once daily. 1/2 hr before meal. - metoprolol tartrate, short acting, (LOPRESSOR) 50 mg tablet Take 1 tablet by mouth two times a day. - apixaban (ELIQUIS) 5 mg tab(s) Take 1 tablet by mouth two times a day. - calcium citrate/vitamin D3 (CALCIUM CITRATE + D ORAL) Take 800 mg by mouth once daily. - TRELEGY ELLIPTA 200-62.5-25 mcg dsdv Inhale as instructed once daily. 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] 11/20/2007 Hyperglycemia [R73.9] 07/03/2009 GERD (Gastroesophageal Reflux Disease) [K21.9] 08/15/2009 Disorders of bursae and tendons in shoulder reg*10/15/2010 Rotator cuff (capsule) sprain [S43.429A] 10/15/2010 Frequency of micturition [R35.0] 10/21/2016 Overweight (BMI 25.0-29.9) [E66.3] 11/10/2016 Digital mucous cyst of finger of left hand [M67*07/01/2017 Digital mucous cyst of finger [M67.449] 07/27/2017 Asthma with chronic obstructive pulmonary disea*10/26/2018 09/12/2019 Chronic obstructive pulmonary disease (HCC) [J4* Persistent atrial fibrillation (HCC) [I48.19] 10/11/2019 11/12/2021 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] 11/23/2019 Atrial fibrillation, chronic (HCC) [I48.20] 08/26/2020 11/12/2021 Permanent atrial fibrillation (HCC) [I48.21] 08/31/2021 Dyslipidemia [E78.5] 11/16/2021 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*11/16/2021 Vitamin D deficiency [E55.9] 11/16/2021 Atrial fibrillation (HCC) [I48.91] 11/16/2021 11/16/2022 Incomplete bladder emptying [R33.9] 06/29/2022 Poor urinary stream [R39.12] 06/29/2022 Nocturia [R35.1] 06/29/2022 Ex-smoker [Z87.891] 07/29/2022 Pre-op exam [Z01.818] 07/29/2022 Elevated blood pressure reading without diagnos*07/29/2022 Preop examination [Z01.818] 10/20/2022 Stage 3a chronic kidney 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] 11/16/2021 Prescriptions ordered this encounter Disp Refills Start End ROSUVASTATIN 20 MG TABLET 90 t* 1 01/10/2024 Route: ORAL Sig: Take 1 tablet by mouth daily at bedtime. Medications Discontinued During This Encounter Prescriptions - atorvastatin (LIPITOR) 40 mg tablet (Discontinued) Take 40 mg by mouth once daily. Encounter Status:Closed by JASON BEJARANO LPN on 01/10/24 [facility] Catie 01-04-2024 CNPN Telephone (AGCARDPOB ) JUAN JOSE FOSTER ([id number]) 1935 M Date Time Provider Department 01/04/24 ANALISA NICOLE AGCARDPOB During your visit today, we recorded the following information about you: Nuzhat Escobar 01/04/2024 2:53 PM Signed Clearance scanned in from [facility] placed in Dr. Nicole box to be reviewed. Nuzhat Escobar January 04, 2024 2:53 PM Nuzhat Escobar 01/24/2024 3:51 PM Signed Recieved completed clearance scanned in documents and faxed back to sender. Nuzhat Escobar January 24, 2024 3:51 PM Allergies As of Date: 01/04/2024 Noted Allergy Reaction CYPRESS 09/22/2010 14 - Other: See Comments Comments: sneezing,runny nose CEDAR 08/17/2010 3 - Cough Comments: also [place] with same reaction MOLD 08/17/2010 3 - Cough Date Reviewed: 12/12/2023 Reviewed by: Nessa Ingram, RT(R) - Partially Assessed Reason for Visit: Cardiac Clearance [4105] Prescriptions as of 01/24/2024 - rosuvastatin (CRESTOR) 20 mg tablet Take 1 tablet by mouth daily at bedtime. - omeprazole (PRILOSEC) 20 mg capsule Take 1 capsule by mouth once daily. 1/2 hr before meal. - metoprolol tartrate, short acting, (LOPRESSOR) 50 mg tablet Take 1 tablet by mouth two times a day. - apixaban (ELIQUIS) 5 mg tab(s) Take 1 tablet by mouth two times a day. - calcium citrate/vitamin D3 (CALCIUM CITRATE + D ORAL) Take 800 mg by mouth once daily. - TRELEGY ELLIPTA 200-62.5-25 mcg dsdv Inhale as instructed once daily. 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] 11/20/2007 Hyperglycemia [R73.9] 07/03/2009 GERD (Gastroesophageal Reflux Disease) [K21.9] 08/15/2009 Disorders of bursae and tendons in shoulder reg*10/15/2010 Rotator cuff (capsule) sprain [S43.429A] 10/15/2010 Frequency of micturition [R35.0] 10/21/2016 Overweight (BMI 25.0-29.9) [E66.3] 11/10/2016 Digital mucous cyst of finger of left hand [M67*07/01/2017 Digital mucous cyst of finger [M67.449] 07/27/2017 Asthma with chronic obstructive pulmonary disea*10/26/2018 09/12/2019 Chronic obstructive pulmonary disease (HCC) [J4* Persistent atrial fibrillation (HCC) [I48.19] 10/11/2019 11/12/2021 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] 11/23/2019 Atrial fibrillation, chronic (HCC) [I48.20] 08/26/2020 11/12/2021 Permanent atrial fibrillation (HCC) [I48.21] 08/31/2021 Dyslipidemia [E78.5] 11/16/2021 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*11/16/2021 Vitamin D deficiency [E55.9] 11/16/2021 Atrial fibrillation (HCC) [I48.91] 11/16/2021 11/16/2022 Incomplete bladder emptying [R33.9] 06/29/2022 Poor urinary stream [R39.12] 06/29/2022 Nocturia [R35.1] 06/29/2022 Ex-smoker [Z87.891] 07/29/2022 Pre-op exam [Z01.818] 07/29/2022 Elevated blood pressure reading without diagnos*07/29/2022 Preop examination [Z01.818] 10/20/2022 Stage 3a chronic kidney 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] 11/16/2021 Encounter Status:Closed by NUZHAT ESCOBAR on 01/04/24 [facility] Catie 12-13-2023 LAKSHMI Telephone (FAMPWS) JUAN JOSE FOSTER ([id number]) 1935 M Date Time Provider Department 12/13/23 [facility] During your visit today, we recorded the following information about you: Judith Garcia APRN.CNP 12/13/2023 7:00 AM Signed Please let him know that I received the results of his chest CT. It shows a new nodule in his right upper lobe. Radiology is recommending a referral to the lung nodule clinic, so I am placing this. I believe they will call him to schedule his appointment. Otherwise everything else looks good. Judith Garcia APRN.Genia Nicholson MA 12/13/2023 8:53 AM Signed Pt notified. He received an email from the lung nodule clinic but states he leaves tomorrow for [place] for 6 months and will call to set up appt when he returns. MADISYN Trevino Rebekah, APRN.ESTIVEN 12/13/2023 1:34 PM Signed Noted, thank you. Judith Garcia APRN.APPLICATIONS SPECIALIST Allergies As of Date: 12/13/2023 Noted Allergy Reaction CYPRESS 09/22/2010 14 - Other: See Comments Comments: sneezing,runny nose CEDAR 08/17/2010 3 - Cough Comments: also [place] with same reaction MOLD 08/17/2010 3 - Cough Date Reviewed: 12/12/2023 Reviewed by: Nessa Ingram RT(R) - Partially Assessed Reason for Visit: Results [95] Appointment [186] Primary Visit Diagnosis:Lung nodule [R91.1] Order(s):CONSULT TO LUNG NODULE CLINIC [[id number]] Order #: [id number]: 1 FUTURE Prescriptions as of 12/13/2023 - atorvastatin (LIPITOR) 40 mg tablet Take 40 mg by mouth once daily. - omeprazole (PRILOSEC) 20 mg capsule Take 1 capsule by mouth once daily. 1/2 hr before meal. - metoprolol tartrate, short acting, (LOPRESSOR) 50 mg tablet Take 1 tablet by mouth two times a day. - apixaban (ELIQUIS) 5 mg tab(s) Take 1 tablet by mouth two times a day. - calcium citrate/vitamin D3 (CALCIUM CITRATE + D ORAL) Take 800 mg by mouth once daily. - TRELEGY ELLIPTA 200-62.5-25 mcg dsdv Inhale as instructed once daily. 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] 11/20/2007 Hyperglycemia [R73.9] 07/03/2009 GERD (Gastroesophageal Reflux Disease) [K21.9] 08/15/2009 Disorders of bursae and tendons in shoulder reg*10/15/2010 Rotator cuff (capsule) sprain [S43.429A] 10/15/2010 Frequency of micturition [R35.0] 10/21/2016 Overweight (BMI 25.0-29.9) [E66.3] 11/10/2016 Digital mucous cyst of finger of left hand [M67*07/01/2017 Digital mucous cyst of finger [M67.449] 07/27/2017 Asthma with chronic obstructive pulmonary disea*10/26/2018 09/12/2019 Chronic obstructive pulmonary disease (HCC) [J4* Persistent atrial fibrillation (HCC) [I48.19] 10/11/2019 11/12/2021 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] 11/23/2019 Atrial fibrillation, chronic (HCC) [I48.20] 08/26/2020 11/12/2021 Permanent atrial fibrillation (HCC) [I48.21] 08/31/2021 Dyslipidemia [E78.5] 11/16/2021 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*11/16/2021 Vitamin D deficiency [E55.9] 11/16/2021 Atrial fibrillation (HCC) [I48.91] 11/16/2021 11/16/2022 Incomplete bladder emptying [R33.9] 06/29/2022 Poor urinary stream [R39.12] 06/29/2022 Nocturia [R35.1] 06/29/2022 Ex-smoker [Z87.891] 07/29/2022 Pre-op exam [Z01.818] 07/29/2022 Elevated blood pressure reading without diagnos*07/29/2022 Preop examination [Z01.818] 10/20/2022 Stage 3a chronic kidney 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] 11/16/2021 Encounter Status:Closed by JUDITH GARCIA on 12/13/23 [facility]SE Nurse Visit (CAWSTR) JUAN JOSE FOSTER ([id number]) 1935 M Date Time Provider Department 12/12/23 11:20 AM NURSE CARD ADMIN [facility] CAWSTR During your visit today, we recorded the following information about you: Vale Jack RN 12/12/2023 3:57 PM Signed RADIOLOGY SERVICE PROGRESS NOTE SERVICE DATE: 12/12/2023 SERVICE TIME: 1120 PATIENT IDENTITY VERIFICATION COMPLETED USING TWO (2) METHODS: Patient confirmed name and Date of verbally. ALLERGIES AND MEDICATIONS REVIEWED BY: Vale Jack RN PROCEDURE TYPE: NM STRESS: 0.4 mg of Lexiscan was administered IV at 1120 over 10 Seconds by Vale Jack RN Reversal agent used:None LOT [id number] EXP 06/16 IV SITE: IV palced by nuclear tecnologist POST EXAM PIV STATUS: Discontinued by Logistics Operations Director PATIENT DISCHARGED TO: Nuclear Medicine Department for post stress imaging A Diagnostic radioactive procedure has taken place, with no further precautions necessary other than routine body substance precautions. More information regarding radiation safety can be found using this link: [email or web address]/Rad%20Protection%20-- %20Diagnostic%20Nuclear%20M edicine%20Procedures.pdf SIGNATURE: Vale Jack RN PATIENT NAME:Juan Jose Foster DATE: 12/12/23 TIME: 3:56 PM Referring Provider: ANALISA NICOLE [[id number]] Allergies As of Date: 12/12/2023 Noted Allergy Reaction CYPRESS 09/22/2010 14 - Other: See Comments Comments: sneezing,runny nose CEDAR 08/17/2010 3 - Cough Comments: also [place] with same reaction MOLD 08/17/2010 3 - Cough Date Reviewed: 12/12/2023 Reviewed by: Nessa Ingram, RT(R) - Partially Assessed Primary Visit Diagnosis:Screening for ischemic heart disease [Z13.6] Prescriptions as of 12/12/2023 - atorvastatin (LIPITOR) 40 mg tablet Take 40 mg by mouth once daily. - omeprazole (PRILOSEC) 20 mg capsule Take 1 capsule by mouth once daily. 1/2 hr before meal. - metoprolol tartrate, short acting, (LOPRESSOR) 50 mg tablet Take 1 tablet by mouth two times a day. - apixaban (ELIQUIS) 5 mg tab(s) Take 1 tablet by mouth two times a day. - calcium citrate/vitamin D3 (CALCIUM CITRATE + D ORAL) Take 800 mg by mouth once daily. - TRELEGY ELLIPTA 200-62.5-25 mcg dsdv Inhale as instructed once daily. 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] 11/20/2007 Hyperglycemia [R73.9] 07/03/2009 GERD (Gastroesophageal Reflux Disease) [K21.9] 08/15/2009 Disorders of bursae and tendons in shoulder reg*10/15/2010 Rotator cuff (capsule) sprain [S43.429A] 10/15/2010 Frequency of micturition [R35.0] 10/21/2016 Overweight (BMI 25.0-29.9) [E66.3] 11/10/2016 Digital mucous cyst of finger of left hand [M67*07/01/2017 Digital mucous cyst of finger [M67.449] 07/27/2017 Asthma with chronic obstructive pulmonary disea*10/26/2018 09/12/2019 Chronic obstructive pulmonary disease (HCC) [J4* Persistent atrial fibrillation (HCC) [I48.19] 10/11/2019 11/12/2021 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] 11/23/2019 Atrial fibrillation, chronic (HCC) [I48.20] 08/26/2020 11/12/2021 Permanent atrial fibrillation (HCC) [I48.21] 08/31/2021 Dyslipidemia [E78.5] 11/16/2021 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*11/16/2021 Vitamin D deficiency [E55.9] 11/16/2021 Atrial fibrillation (HCC) [I48.91] 11/16/2021 11/16/2022 Incomplete bladder emptying [R33.9] 06/29/2022 Poor urinary stream [R39.12] 06/29/2022 Nocturia [R35.1] 06/29/2022 Ex-smoker [Z87.891] 07/29/2022 Pre-op exam [Z01.818] 07/29/2022 Elevated blood pressure reading without diagnos*07/29/2022 Preop examination [Z01.818] 10/20/2022 Stage 3a chronic kidney 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] 11/16/2021 Encounter Status:Closed by VALE JACK on 12/12/23 [facility] Catie 12-12-2023 [facility] Telephone (CAWSTR) JUAN JOSE FOSTER ([id number]) 1935 M Date Time Provider Department 12/12/23 ANALISA NICOLE During your visit today, we recorded the following information about you: Ananya Carter LPN 12/12/2023 8:14 AM Signed Patient has a stress test this morning at 10am. He mistakenly took his Atorvastatin and was not sure if he should reschedule. [place] leaving out of state for 6 months on Tuesday as well. Please call patient back at [phone]. Ananya Carter LPN Allergies As of Date: 12/12/2023 Noted Allergy Reaction CYPRESS 09/22/2010 14 - Other: See Comments Comments: sneezing,runny nose CEDAR 08/17/2010 3 - Cough Comments: also [place] with same reaction MOLD 08/17/2010 3 - Cough Date Reviewed: 12/05/2023 Reviewed by: Marii Blakely RPFT - Fully Assessed Prescriptions as of 12/12/2023 - atorvastatin (LIPITOR) 40 mg tablet Take 40 mg by mouth once daily. - omeprazole (PRILOSEC) 20 mg capsule Take 1 capsule by mouth once daily. 1/2 hr before meal. - metoprolol tartrate, short acting, (LOPRESSOR) 50 mg tablet Take 1 tablet by mouth two times a day. - apixaban (ELIQUIS) 5 mg tab(s) Take 1 tablet by mouth two times a day. - calcium citrate/vitamin D3 (CALCIUM CITRATE + D ORAL) Take 800 mg by mouth once daily. - TRELEGY ELLIPTA 200-62.5-25 mcg dsdv Inhale as instructed once daily. 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] 11/20/2007 Hyperglycemia [R73.9] 07/03/2009 GERD (Gastroesophageal Reflux Disease) [K21.9] 08/15/2009 Disorders of bursae and tendons in shoulder reg*10/15/2010 Rotator cuff (capsule) sprain [S43.429A] 10/15/2010 Frequency of micturition [R35.0] 10/21/2016 Overweight (BMI 25.0-29.9) [E66.3] 11/10/2016 Digital mucous cyst of finger of left hand [M67*07/01/2017 Digital mucous cyst of finger [M67.449] 07/27/2017 Asthma with chronic obstructive pulmonary disea*10/26/2018 09/12/2019 Chronic obstructive pulmonary disease (HCC) [J4* Persistent atrial fibrillation (HCC) [I48.19] 10/11/2019 11/12/2021 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] 11/23/2019 Atrial fibrillation, chronic (HCC) [I48.20] 08/26/2020 11/12/2021 Permanent atrial fibrillation (HCC) [I48.21] 08/31/2021 Dyslipidemia [E78.5] 11/16/2021 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*11/16/2021 Vitamin D deficiency [E55.9] 11/16/2021 Atrial fibrillation (HCC) [I48.91] 11/16/2021 11/16/2022 Incomplete bladder emptying [R33.9] 06/29/2022 Poor urinary stream [R39.12] 06/29/2022 Nocturia [R35.1] 06/29/2022 Ex-smoker [Z87.891] 07/29/2022 Pre-op exam [Z01.818] 07/29/2022 Elevated blood pressure reading without diagnos*07/29/2022 Preop examination [Z01.818] 10/20/2022 Stage 3a chronic kidney 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] 11/16/2021 Encounter Status:Closed by ANANYA CARTER on 12/12/23 Normal [facility] CARDIAC PERF STRESS/PHARM on 12-12-2023 CT CARDIAC PERF STRESS/PHARM * * *Final Report* * * DATE OF EXAM: Dec 12 2023 12:50PM [facility] CARDIAC PERF STRESS/PHARM / PROCEDURE REASON: Shortness of breath * * * * Physician Interpretation * * * * PATIENT: Name: MR. JUAN JOSE FOSTER Age: 88 years Gender: M CONCLUSIONS: 1. SPECT Perfusion Study: Normal. 2. There is no scintigraphic evidence for inducible ischemia. 3. No evidence of scarred myocardium. 4. Left ventricle is normal in size. The left ventricle systolic function is normal. 5. Right ventricle is normal in size. The right ventricle systolic function is normal. 6. This is a low risk scan. Gated Stress FBP LVEF % 63 Prior Study Comparison Prior nuclear cardiology exam was performed on 12/03/2019. Shows no change. Nuclear Med Report:1-Day Gated SPECT Myocardial Perfusion with Regadenoson Stress: Myocardial perfusion imaging was performed at rest 30 minutes following the IV injection of the radiotracer. The patient received 0.4 mg of regadenoson, via rapid IV push, immediately followed by radiotracer IV. Gated post stress tomographic imaging was performed 30 to 60 minutes later. See administered radiotracer and doses below. [facility] Date of service: 12/12/2023 7:52:14 AM Ordering Physician: ANALISA NICOLE. Requesting Physician: ANALISA NICOLE Indication: Assessment for suspected CAD and CP - ECG interpretable AND able to exercise with interm/high pre-test probability Interpreting physician: Jose Boyd MD Height: 180.34 cm BSA: 2.14 m? Weight: 91.63 kg BMI: 28.2 kg/m? Imaging Protocol Limitation Reason Patient motion and Diaphragmatic attenuation. Exam Type: Rest Stress Radiopharm: Tc-99m Tetrofosmin Tc-99m Tetrofosmin Dosage(mCi): 8.7 28.4 Stress Agent: Regadenoson 0.4mg Supply provided from [facility] Blood Press: 168/78 mmHg Image Quality The overall study imaging quality was deemed to be poor. The following technical issues were noted: Patient motion and Diaphragmatic attenuation. FINDINGS: Left Ventricle Wall Motion: Stress IR:3D - All segments are normal. Rest IR:3D - Gated Stress FBP - Reversibility - Stress IR:3D Stress IR:3D Gated Stress FBP LVEF: 63 % ED Volume: 49 ml ES Volume: 18 ml TID: 1.28 Perfusion Findings Stress IR:3D - Summed Score=0 All segments demonstrate normal perfusion. Rest IR:3D - Summed Score=0 All segments demonstrate normal perfusion. Stress IR:3D Rest IR:3D Summed Score=0 Summed Score=0 LEFT VENTRICLE The left ventricle is normal in size. Left ventricular systolic function is normal. Right Ventricle The right ventricle is normal in size. Right ventricle systolic function is normal. Stress Test Findings: There is no scintigraphic evidence for inducible ischemia. There is no evidence of scarring. * * * Final * * * Stress ECG Report: [facility] Date of service: 12/12/2023 7:52:14 AM Ordering physician: ANALISA NICOLE management specialist: Vale Jack RN Interpreting physician: Ilan Mata MD Patient name: MR. JUAN JOSE FOSTER Age: 88 years Gender: M Height: 180.34 cm BSA: 2.14 m? Weight: 91.63 kg BMI: 28.2 kg/m? Indication: Shortness of breath Stress ECG Conclusion: Conclusion: Non-diagnostic due to abnormal resting ECG Stress ECG Summary: The patient's resting heart rate was 118 bpm and blood pressure was 168/78 mmHg. The test was terminated due to end of protocol. No symptoms provoked during stress. The maximum heart rate was 120 bpm, which is 91% of the predicted heart rate for age. Peak blood pressure was 148/82 mmHg. The double product [place] [address]. Medications: Last Used METOPROLOL 2 Days Resting ECG: Atrial Fib/Flutter, Complete RBBB and Rare PVCs (<3/Min) Symptoms at rest: No symptoms Pharamcologic Protocol: Regadenoson Stress Exercise Table: +-----+---+---+---+ Stage HR SYS VAUGHN +-----+---+---+---+ 1 130 +-----+---+---+---+ 2 130 122 72 +-----+---+---+---+ 3 123 +-----+---+---+---+ 4 120 148 82 +-----+---+---+---+ +-----+---+---+---+ HR SYS VAUGHN +-----+---+---+---+ Final 120 148 82 +-----+---+---+---+ +------+ + Stage Arrhythmias +------+ + 1 Regadenoson Injection and Isotope Injection +------+ + Recovery Table: +------+---+---+---+ Stage HR SYS VAUGHN +------+---+---+---+ 1 115 +------+---+---+---+ 2 141 144 78 +------+---+---+---+ 3 121 +------+---+---+---+ 4 127 152 82 +------+---+---+---+ Stress Observati (more content not included)... Normal [facility] Heart Perfusion W stress and W radionuclide Chuck 12-12-2023 * * *Final Report* * * DATE OF EXAM: Dec 12 2023 12:50PM [address] CARDIAC PERF STRESS/PHARM / PROCEDURE REASON: Shortness of breath * * * * Physician Interpretation * * * * PATIENT: Name: MR. JUAN JOSE FOSTER Age: 88 years Gender: M CONCLUSIONS: 1. SPECT Perfusion Study: Normal. 2. There is no scintigraphic evidence for inducible ischemia. 3. No evidence of scarred myocardium. 4. Left ventricle is normal in size. The left ventricle systolic function is normal. 5. Right ventricle is normal in size. The right ventricle systolic function is normal. 6. This is a low risk scan. Gated Stress FBP LVEF % 63 Prior Study Comparison Prior nuclear cardiology exam was performed on 12/03/2019. Shows no change. Nuclear Med Report:1-Day Gated SPECT Myocardial Perfusion with Regadenoson Stress: Myocardial perfusion imaging was performed at rest 30 minutes following the IV injection of the radiotracer. The patient received 0.4 mg of regadenoson, via rapid IV push, immediately followed by radiotracer IV. Gated post stress tomographic imaging was performed 30 to 60 minutes later. See administered radiotracer and doses below. [facility] Date of service: 12/12/2023 7:52:14 AM Ordering Physician: ANALISA NICOLE. Requesting Physician: ANALISA NICOLE Indication: Assessment for suspected CAD and CP - ECG interpretable AND able to exercise with interm/high pre-test probability Interpreting physician: Jose Boyd MD Height: 180.34 cm BSA: 2.14 m Weight: 91.63 kg BMI: 28.2 kg/m Imaging Protocol Limitation Reason Patient motion and Diaphragmatic attenuation. Exam Type: Rest Stress Radiopharm: Tc-99m Tetrofosmin Tc-99m Tetrofosmin Dosage(mCi): 8.7 28.4 Stress Agent: Regadenoson 0.4mg Supply provided from [facility] Blood Press: 168/78 mmHg Image Quality The overall study imaging quality was deemed to be poor. The following technical issues were noted: Patient motion and Diaphragmatic attenuation. FINDINGS: Left Ventricle Wall Motion: Stress IR:3D - All segments are normal. Rest IR:3D - Gated Stress FBP - Reversibility - Stress IR:3D Stress IR:3D Gated Stress FBP LVEF: 63 % ED Volume: 49 ml ES Volume: 18 ml TID: 1.28 Perfusion Findings Stress IR:3D - Summed Score=0 All segments demonstrate normal perfusion. Rest IR:3D - Summed Score=0 All segments demonstrate normal perfusion. Stress IR:3D Rest IR:3D Summed Score=0 Summed Score=0 LEFT VENTRICLE The left ventricle is normal in size. Left ventricular systolic function is normal. Right Ventricle The right ventricle is normal in size. Right ventricle systolic function is normal. Stress Test Findings: There is no scintigraphic evidence for inducible ischemia. There is no evidence of scarring. * * * Final * * * Stress ECG Report: [facility] Date of service: 12/12/2023 7:52:14 AM Ordering physician: ANALISA NICOLE management specialist: Vale Jack RN Interpreting physician: Ilan Mata MD Patient name: MR. JUAN JOSE FOSTER Age: 88 years Gender: M Height: 180.34 cm BSA: 2.14 m Weight: 91.63 kg BMI: 28.2 kg/m Indication: Shortness of breath Stress ECG Conclusion: Conclusion: Non-diagnostic due to abnormal resting ECG Stress ECG Summary: The patient's resting heart rate was 118 bpm and blood pressure was 168/78 mmHg. The test was terminated due to end of protocol. No symptoms provoked during stress. The maximum heart rate was 120 bpm, which is 91% of the predicted heart rate for age. Peak blood pressure was 148/82 mmHg. The double product [place] was [id number]. Medications: Last Used METOPROLOL 2 Days Resting ECG: Atrial Fib/Flutter, Complete RBBB and Rare PVCs (<3/Min) Symptoms at rest: No symptoms Pharamcologic Protocol: Regadenoson Stress Exercise Table: +-----+---+---+---+ Stage HR SYS VAUGHN +-----+---+---+---+ 1 130 +-----+---+---+---+ 2 130 122 72 +-----+---+---+---+ 3 123 +-----+---+---+---+ 4 120 148 82 +-----+---+---+---+ +-----+---+---+---+ HR SYS VAUGHN +-----+---+---+---+ Final 120 148 82 +-----+---+---+---+ +------+ + Stage Arrhythmias (more content not included)... DIVISION OF RADIOLOGY Provider, [facility] - 12/12/2023 * * *Final Report* * * DATE OF EXAM: Dec 12 2023 12:50PM [facility] 0006 - [place] CARDIAC PERF STRESS/PHARM / PROCEDURE REASON: Shortness of breath * * * * Physician Interpretation * * * * PATIENT: Name: MR. JUAN JOSE FOSTER Age: 88 years Gender: M CONCLUSIONS: 1. SPECT Perfusion Study: Normal. 2. There is no scintigraphic evidence for inducible ischemia. 3. No evidence of scarred myocardium. 4. Left ventricle is normal in size. The left ventricle systolic function is normal. 5. Right ventricle is normal in size. The right ventricle systolic function is normal. 6. This is a low risk scan. Gated Stress FBP LVEF % 63 Prior Study Comparison Prior nuclear cardiology exam was performed on 12/03/2019. Shows no change. Nuclear Med Report:1-Day Gated SPECT Myocardial Perfusion with Regadenoson Stress: Myocardial perfusion imaging was performed at rest 30 minutes following the IV injection of the radiotracer. The patient received 0.4 mg of regadenoson, via rapid IV push, immediately followed by radiotracer IV. Gated post stress tomographic imaging was performed 30 to 60 minutes later. See administered radiotracer and doses below. [facility] Date of service: 12/12/2023 7:52:14 AM Ordering Physician: ANALISA NICOLE. Requesting Physician: ANALISA NICOLE Indication: Assessment for suspected CAD and CP - ECG interpretable AND able to exercise with interm/high pre-test probability Interpreting physician: Jose Boyd MD Height: 180.34 cm BSA: 2.14 m Weight: 91.63 kg BMI: 28.2 kg/m Imaging Protocol Limitation Reason Patient motion and Diaphragmatic attenuation. Exam Type: Rest Stress Radiopharm: Tc-99m Tetrofosmin Tc-99m Tetrofosmin Dosage(mCi): 8.7 28.4 Stress Agent: Regadenoson 0.4mg Supply provided from [facility] Blood Press: 168/78 mmHg Image Quality The overall study imaging quality was deemed to be poor. The following technical issues were noted: Patient motion and Diaphragmatic attenuation. FINDINGS: Left Ventricle Wall Motion: Stress IR:3D - All segments are normal. Rest IR:3D - Gated Stress FBP - Reversibility - Stress IR:3D Stress IR:3D Gated Stress FBP LVEF: 63 % ED Volume: 49 ml ES Volume: 18 ml TID: 1.28 Perfusion Findings Stress IR:3D - Summed Score=0 All segments demonstrate normal perfusion. Rest IR:3D - Summed Score=0 All segments demonstrate normal perfusion. Stress IR:3D Rest IR:3D Summed Score=0 Summed Score=0 LEFT VENTRICLE The left ventricle is normal in size. Left ventricular systolic function is normal. Right Ventricle The right ventricle is normal in size. Right ventricle systolic function is normal. Stress Test Findings: There is no scintigraphic evidence for inducible ischemia. There is no evidence of scarring. * * * Final * * * Stress ECG Report: [facility] Date of service: 12/12/2023 7:52:14 AM Ordering physician: ANALISA NICOLE management specialist: Vale Jack RN Interpreting physician: Ilan Mata MD Patient name: MR. JUAN JOSE FOSTER Age: 88 years Gender: M Height: 180.34 cm BSA: 2.14 m Weight: 91.63 kg BMI: 28.2 kg/m Indication: Shortness of breath Stress ECG Conclusion: Conclusion: Non-diagnostic due to abnormal resting ECG Stress ECG Summary: The patient's resting heart rate was 118 bpm and blood pressure was 168/78 mmHg. The test was terminated due to end of protocol. No symptoms provoked during stress. The maximum heart rate was 120 bpm, which is 91% of the predicted heart rate for age. Peak blood pressure was 148/82 mmHg. The double product achieved was [id number]. Medications: Last Used METOPROLOL 2 Days Resting ECG: Atrial Fib/Flutter, Complete RBBB and Rare PVCs (<3/Min) Symptoms at rest: No symptoms Pharamcologic Protocol: Regadenoson Stress Exercise Table: +-----+---+---+---+ Stage HR SYS VAUGHN +-----+---+---+---+ 1 130 +-----+---+---+---+ 2 130 122 72 +-----+---+---+---+ 3 123 +-----+---+---+---+ 4 120 148 82 +-----+---+---+---+ +-----+---+---+---+ HR SYS VAUGHN +-----+---+---+---+ Final 120 148 82 +-----+---+---+---+ +------+ + Stage Arrhythmias +------+ + 1 Regadenoson Injection and Isotope Injection +------+ + Recovery Table: +------+---+---+---+ Stage HR SYS VAUGHN +------+---+---+---+ 1 115 (more content not included)... [facility] Radiology Study observation (narrative) [facility] NM Heart Perfusion W stress and W radionuclide IVOrdered By: [facility] Provider on 12-12-2023 [facility] ESTIVENNon 12-06-2023 [facility] Telephone (FAMPWS) JUAN JOSE FOSTER ([id number]) 1935 M Date Time Provider Department 12/06/23 [facility] During your visit today, we recorded the following information about you: Dipak Aguilar DO 12/06/2023 9:42 AM Signed Please inform patient that his iron levels are normal DO Whitley Baeza Brittany L, MA 12/06/2023 10:38 AM Signed Patient active MyChart. Patient notified via Chevia message. Jair Ziegler MA Allergies As of Date: 12/06/2023 Noted Allergy Reaction CYPRESS 09/22/2010 14 - Other: See Comments Comments: sneezing,runny nose CEDAR 08/17/2010 3 - Cough Comments: also [place] with same reaction MOLD 08/17/2010 3 - Cough Date Reviewed: 12/05/2023 Reviewed by: Marii Blakely RPFT - Fully Assessed Prescriptions as of 12/06/2023 - atorvastatin (LIPITOR) 40 mg tablet Take 40 mg by mouth once daily. - omeprazole (PRILOSEC) 20 mg capsule Take 1 capsule by mouth once daily. 1/2 hr before meal. - metoprolol tartrate, short acting, (LOPRESSOR) 50 mg tablet Take 1 tablet by mouth two times a day. - apixaban (ELIQUIS) 5 mg tab(s) Take 1 tablet by mouth two times a day. - calcium citrate/vitamin D3 (CALCIUM CITRATE + D ORAL) Take 800 mg by mouth once daily. - TRELEGY ELLIPTA 200-62.5-25 mcg dsdv Inhale as instructed once daily. 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] 11/20/2007 Hyperglycemia [R73.9] 07/03/2009 GERD (Gastroesophageal Reflux Disease) [K21.9] 08/15/2009 Disorders of bursae and tendons in shoulder reg*10/15/2010 Rotator cuff (capsule) sprain [S43.429A] 10/15/2010 Frequency of micturition [R35.0] 10/21/2016 Overweight (BMI 25.0-29.9) [E66.3] 11/10/2016 Digital mucous cyst of finger of left hand [M67*07/01/2017 Digital mucous cyst of finger [M67.449] 07/27/2017 Asthma with chronic obstructive pulmonary disea*10/26/2018 09/12/2019 Chronic obstructive pulmonary disease (HCC) [J4* Persistent atrial fibrillation (HCC) [I48.19] 10/11/2019 11/12/2021 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] 11/23/2019 Atrial fibrillation, chronic (HCC) [I48.20] 08/26/2020 11/12/2021 Permanent atrial fibrillation (HCC) [I48.21] 08/31/2021 Dyslipidemia [E78.5] 11/16/2021 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*11/16/2021 Vitamin D deficiency [E55.9] 11/16/2021 Atrial fibrillation (HCC) [I48.91] 11/16/2021 11/16/2022 Incomplete bladder emptying [R33.9] 06/29/2022 Poor urinary stream [R39.12] 06/29/2022 Nocturia [R35.1] 06/29/2022 Ex-smoker [Z87.891] 07/29/2022 Pre-op exam [Z01.818] 07/29/2022 Elevated blood pressure reading without diagnos*07/29/2022 Preop examination [Z01.818] 10/20/2022 Stage 3a chronic kidney 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] 11/16/2021 Encounter Status:Closed by JAIR ZIEGLER on 12/06/23 Normal [facility] CBC W Auto Differential pane l (Bld)on 12-05-2023 Basophils (Bld) [#/Vol] 0.11 10*3/uL High <0.11 [facility] 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: Order Comment: Speci men Type: BLOOD SPECIMENOrdering Facility: [facility] Address: [address] [place] [address] Performed By: #### 5 7021-8 ####[facility] [id number] [place] [address] [place] Basophils/100 WBC (Bld) 1.1 % Normal [facility] 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: Order Comment: Speci men Type: BLOOD SPECIMENOrdering Facility: [facility] Address: [address] [place] [address] Performed By: #### 5 7021-8 ####[facility] [id number] [place] [address] [place] Differential cell count method Nom (Bld) Auto Normal [facility] 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: Order Comment: Speci men Type: BLOOD SPECIMENOrdering Facility: [facility] Address: [address] [place] [address] Performed By: #### 5 7021-8 ####[facility] [id number] [place] [address] [place] Eosinophils (Bld) [#/Vol] 0.60 10*3/uL High <0.46 [facility] 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: Order Comment: Speci men Type: BLOOD SPECIMENOrdering Facility: [facility] Address: [address] [place] [address] Performed By: #### 5 7021-8 ####[facility] [id number] [place] [address] [place] Eosinophils/100 WBC (Bld) 5.8 % Normal [facility] 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: Order Comment: Speci men Type: BLOOD SPECIMENOrdering Facility: [facility] Address: [address] [place] [address] Performed By: #### 5 7021-8 ####[facility] [id number] [place] [address] [place] Erythrocyte distribution width (RBC) [Ratio] 14.0 % Normal 11.5-15.0 [facility] 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: Order Comment: Speci men Type: BLOOD SPECIMENOrdering Facility: [facility] Address: [address] [place] [address] Performed By: #### 5 7021-8 ####[facility] [id number] [place] [address] [place] Hematocrit (Bld) [Volume fraction] 49.8 % Normal 39.0-51.0 [facility] 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: Order Comment: Speci men Type: BLOOD SPECIMENOrdering Facility: [facility] Address: [address] [place] [address] Performed By: #### 5 7021-8 ####[facility] [id number] [place] [address] [place] Hemoglobin (Bld) [Mass/Vol] 17.2 g/dL High 13.0-17.0 [facility] 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: Order Comment: Speci men Type: BLOOD SPECIMENOrdering Facility: [facility] Address: [address] [place] [address] Performed By: #### 5 7021-8 ####[facility] MILLWNCL[facility] [id number] [place] [address] [place] Immature granulocytes (Bld) [#/Vol] 0.16 10*3/uL High <0.10 [facility] 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: Order Comment: Speci men Type: BLOOD SPECIMENOrdering Facility: [facility] Address: [address] [place] [address] Performed By: #### 5 7021-8 ####[facility] ERWNCLIA [id number] [place] [address] [place] Immature granulocytes/100 WBC (Bld) 1.5 % Normal [facility] 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: Order Comment: Speci men Type: BLOOD SPECIMENOrdering Facility: [facility] Address: [address] [place] [address] Performed By: #### 5 7021-8 ####[facility] [id number] [place] [address] [place] Lymphocytes (Bld) [#/Vol] 1.87 10*3/uL Normal 1.00-4.00 [facility] 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: Order Comment: Speci men Type: BLOOD SPECIMENOrdering Facility: [facility] Address: [address] [place] [address] Performed By: #### 5 7021-8 ####[facility] MILLWNCLIA [id number] [place] [address] [place] Lymphocytes/100 WBC (Bld) 18.0 % Normal [facility] 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: Order Comment: Speci men Type: BLOOD SPECIMENOrdering Facility: [facility] Address: [address] [place] [address] Performed By: #### 5 7021-8 ####[facility] MILLWNCLIA [id number] [place] [address] [place] MCH (RBC) [Entitic mass] 30.4 pg Normal 26.0-34.0 [facility] 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: Order Comment: Speci men Type: BLOOD SPECIMENOrdering Facility: [facility] Address: [address] [place] [address] Performed By: #### 5 7021-8 ####[facility] [id number] [place] [address] [place] MCHC (RBC) [Mass/Vol] 34.5 g/dL Normal 30.5-36.0 [facility] 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: Order Comment: Speci men Type: BLOOD SPECIMENOrdering Facility: [facility] Address: [address] [place] [address] Performed By: #### 5 7021-8 ####[facility] [id number] [place] [address] [place] MCV (RBC) [Entitic vol] 88.0 fL Normal 80.0-100.0 [facility] 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: Order Comment: Speci men Type: BLOOD SPECIMENOrdering Facility: [facility] Address: [address] [place] [address] Performed By: #### 5 7021-8 ####[facility] [id number] [place] [address] [place] Monocytes (Bld) [#/Vol] 0.87 10*3/uL High <0.87 [facility] 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: Order Comment: Speci men Type: BLOOD SPECIMENOrdering Facility: [facility] Address: [address] [place] [address] Performed By: #### 5 7021-8 ####[facility] [id number] [place] [address] [place] Monocytes/100 WBC (Bld) 8.4 % Normal [facility] 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: Order Comment: Speci men Type: BLOOD SPECIMENOrdering Facility: [facility] Address: [address] [place] [address] Performed By: #### 5 7021-8 ####[facility] [id number] [place] [address] [place] Neutrophils (Bld) [#/Vol] 6.77 10*3/uL Normal 1.45-7.50 [facility] 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: Order Comment: Speci men Type: BLOOD SPECIMENOrdering Facility: [facility] Address: [address] [place] [address] Performed By: #### 5 7021-8 ####[facility] [id number] [place] [address] [place] Neutrophils/100 WBC (Bld) 65.2 % Normal [facility] 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: Order Comment: Speci men Type: BLOOD SPECIMENOrdering Facility: [facility] Address: [address] [place] [address] Performed By: #### 5 7021-8 ####[facility] [id number] [place] [address] [place] Nucleated RBC (Bld) [#/Vol] 10*3/uL Normal <0.01 [facility] 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: Order Comment: Speci men Type: BLOOD SPECIMENOrdering Facility: [facility] Address: [address] [place] [address] Performed By: #### 5 7021-8 ####[facility] [id number] [place] [address] [place] Nucleated RBC/100 WBC (Bld) [Ratio] 0.0 /100 WBC Normal [facility] 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: Order Comment: Speci men Type: BLOOD SPECIMENOrdering Facility: [facility] Address: [address] [place] [address] Performed By: #### 5 7021-8 ####[facility] STEPHANIEValerianoNCJAIMIEA [id number] [place] [address] [place] Platelet mean volume (Bld) [Entitic vol] 9.7 fL Normal 9.0-12.7 [facility] 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: Order Comment: Speci men Type: BLOOD SPECIMENOrdering Facility: [facility] Address: [address] [place], [place] [address] Performed By: #### 5 7021-8 ####[facility] [id number] [place] [address] [place] Platelets (Bld) [#/Vol] 226 10*3/uL Normal 150-400 [facility] 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: Order Comment: Speci men Type: BLOOD SPECIMENOrdering Facility: [facility] Address: [address] [place], [place] [address] Performed By: #### 5 7021-8 ####[facility]INT[facility] [id number] [place] [address] [place] RBC (Bld) [#/Vol] 5.66 10*6/uL Normal 4.20-6.00 [facility] 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: Order Comment: Speci men Type: BLOOD SPECIMENOrdering Facility: [facility] Address: [address] [place], [place] [address] Performed By: #### 5 7021-8 ####[facility]INT[facility]CL[facility] [id number] [place] [address] [place] WBC (Bld) [#/Vol] 10.38 10*3/uL Normal 3.70-11.00 [facility] 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: Order Comment: Speci men Type: BLOOD SPECIMENOrdering Facility: [facility] Address: [address] [place], [place] [address] Performed By: #### 5 7021-8 ####[facility] MILLTOWNCLIA [id number] [place] [address] [place] [address] CHEST WO IVCONon 12-05-19 CT CHEST WO IVCON * * *Final Report* * * DATE OF EXAM: Dec 05 2023 11:51AM [facility] 0541 - CT CHEST WO IVCON / PROCEDURE REASON: multiple diagnoses * * * * Physician Interpretation * * * * EXAMINATION: CHEST CT WITHOUT CONTRAST CLINICAL HISTORY: Wheezing. Productive cough. Shortness of breath on exertion. Technique: Spiral CT acquisition of the chest from the thoracic inlet to the upper abdomen without contrast. MQ: [id number]_6 CT Radiation dose: Integrated Dose-length product (DLP) for this visit = 404 mGy*cm CT Dose Reduction Employed: Automated exposure control(AEC) and iterative recon Comparison: CT chest 09/12/2019 RESULT: Limitations: None. Lines, tubes, and devices: None. Lung parenchyma and airways: There is a new 14 x 12 mm nodule in the right upper lobe (7:80). New 4 mm nodule posterior left lower lobe (7:103). Stable 7 mm subpleural nodule posterior right lower lobe (7:83). Linear scarring or atelectasis in the right upper lobe and bilateral lower lobes. No acute airspace disease. Central airways are patent. Pleural space: No pleural effusion. No pleural thickening. Lower neck, lymph nodes, and mediastinum: Stable left thyroid nodule. Borderline enlarged paratracheal and subcarinal lymph nodes measure up to 1 cm short axis. Heart, pericardium, and thoracic vessels: The thoracic aorta and main pulmonary artery are normal in caliber. The cardiac chambers are normal in size. Mild coronary artery atherosclerotic calcifications are noted, although the study is not optimized for coronary assessment. No pericardial effusion or thickening. Bones and soft tissues: No destructive bone lesion. Degenerative disease of the thoracic spine. Chest wall is unremarkable. Upper abdomen: No acute abnormality in the imaged upper abdomen. Cholelithiasis. Localizer images: No additional findings. IMPRESSION: 1. New nodules in the right upper lobe and left lower lobe. 2. Borderline enlarged mediastinal lymph nodes Incidental Finding: Follow-up Acuity: Incidental Finding: Solid: >8 but <15 mm Routing Code: RI_1 Recommendation: Consult to [facility] - [id number] Time Frame: at the discretion of the clinical team. Comments: Follow-up for this incidentally detected lung nodule with PET/CT or Biopsy within 4 weeks, or Chest CT exam in 3 months is recommended. --END OF FINDING-- Supervisor Instrument Repair: BLANK Transcribe Date/Time: Dec 12 2023 10:45A Dictated by : ARLIN MILAN MD This examination was interpreted and the report reviewed and electronically signed by: ARLIN MILAN MD on Dec 12 2023 10:59AM EST [id number] [id number] Invalid Interpretation Code [facility] Iron and Iron binding capaci ty panelon 12-05-2023 Iron [Mass/Vol] 86 ug/dL Normal 41-186 [facility] 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: Order Comment: Jayson moffett Type: BLOOD SPECIMENOrdering Facility: [facility] Address: [address] [place] [address] Performed By: #### 5 0190-8 ####[facility] LABCLIA [id number] [place] [address] [place] Iron binding capacity [Mass/Vol] 359 ug/dL Normal 232-386 [facility] 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: Order Comment: Jayson moffett Type: BLOOD SPECIMENOrdering Facility: [facility] Address: [address] [place] [address] Performed By: #### 5 0190-8 ####[facility] LABCLIA [id number] [place] [id number] [place] Iron/TIBC [Molar ratio] 24.0 % Normal 15.0-57.0 [facility] 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: Order Comment: Simoni men Type: BLOOD SPECIMENOrdering Facility: [facility] Address: [address] [place] [address] Performed By: #### 5 0190-8 ####[facility] LABCLIA [id number] [place] [id number] [place] No Panel Informationon 12-04 [facility] [address], [place] [address] Test Date: 2023-12-05 Pat Name: JUAN JOSE FOSTER Department: Room: Gender: Male [employer] Tax: : 1935 Requested By: Order Number: [id number] Reading MD: Yamile Bowens MD Interpretive Statements Medications and Allergies were reviewed for possible drug interactions per policy. No contraindications or sensitivities were noted. Meds taken: none before testing. Current ATS/ERS acceptability and repeatability standards for spirometry met. Start of test and EOFE criteria met. Current ATS/ERS acceptability and repeatability standards for lung volumes met. IMPRESSION: Spirometry is normal. Negative bronchodilator response. Lung volumes are normal. Electronically Signed On 12-05-2023 15:57:36 EDT by Yamile Bowens MD ID: [id number] Name: JUAN JOSE FOSTER Race: White Ht: 71.81 in Wt: 202.00 lbs Age: 88 Gender: Male : 1935 Dx: Wheezing Smoking Hx: Non-smoker Doctor: JUDITH GARCIA Test Date: 12/05/2023 Site: Tech: Marii Blakely PRE-BRONCH POST-BRONCH Pre LLN Pred ULN %Pred Post %Pred %Chg SPIROMETRY FVC (L) 3.34 2.85 3.89 4.96 85 3.44 88 2 FEV1 (L) 2.33 1.99 2.78 3.53 83 2.44 87 4 FEV1/FVC 0.70 0.59 0.74 0.86 93 0.71 95 1 PEF L/s (L/sec) 5.95 4.18 6.62 9.06 89 6.41 96 7 FEF50 (L/sec) 1.94 1.60 3.73 5.85 52 2.43 65 24 FIF50 (L/sec) 3.94 5.09 29 FEF50/FIF50 0.49 90-100 0.48 -3 FIVC (L) 3.02 2.88 -4 XNC29-93 (L/sec) 1.43 0.63 1.86 3.74 76 1.74 93 22 Time (sec) 9.39 10.56 12 FET PEF (sec) 0.14 0.14 -3 DEANA (L) 0.11 0.10 -5 Vol Extrap % (%) 3 3 -8 LUNG VOLUMES TGV (L) 3.71 2.93 4.11 5.29 90 ERV (L) 0.62 1.30 47 RV (Pleth) (L) 3.09 2.30 2.91 3.53 105 SVC (L) 3.28 2.85 3.89 4.96 84 IC (L) 2.43 2.60 93 TLC (Pleth) (L) 6.16 6.15 7.45 8.75 82 RV/TLC (Pleth) (%) 50 34 41 48 121 Comments: Medications and Allergies were reviewed for possible drug interactions per policy. No contraindications or sensitivities were noted. Meds taken: none before testing. Current ATS/ERS acceptability and repeatability standards for spirometry met. Start of test and EOFE criteria met. Current ATS/ERS acceptability and repeatability standards for lung volumes met. PULMONARY FUNCTION LAB [facility] SPIROMETRY - BASELINE AND PO [facility] 12-05-2023 ERV BOX (L) 0.62 L [facility] ERV PREDICTED (L) 1.30 L/S [facility] FEF25% POST (L/S) 5.94 L/S [facility] FEF25% PRE (L/S) 5.73 L/S [facility] TXO75-01% LLN (L/S) 0.63 L/S [facility] APY17-22% POST (L/S) 1.74 L/S [facility] SWA70-23% PRE (L/S) 1.43 L/S [facility] RIB93-26% PREDICTED (L/S) 1.86 L/S [facility] FEF75% LLN (L/S) 0.14 L/S [facility] FEF75% POST (L/S) 0.58 L/S [facility] FEF75% PRE (L/S0 0.47 L/S [facility] FEF75% PREDICTED (L/S) 0.43 L/S [facility] FEF75% ULN (L/S) 1.34 L/S [facility] FET POST (S) 10.56 S [facility] FET PRE (S) 9.39 S [facility] FEV1 LLN (L) 1.99 L [facility] FEV1 PRE (L) 2.33 L [facility] FEV1 PREDICTED (L) 2.78 L [facility] FEV1 ULN (L) 3.53 L [facility] FEV1/FVC LLN (%) 59 % [facility] FEV1/FVC POST (%) 71 % [facility] FEV1/FVC PRE (%) 70 % [facility] FEV1/FVC PREDICTED (%) 74 % [facility] FEV1_POST (L) 2.44 L [facility] FRC Box (L) 3.71 L [facility] FVC LLN (L) 2.85 L [facility] FVC POST (L) 3.44 L [facility] FVC PRE (L) 3.34 L [facility] FVC PREDICTED (L) 3.89 L [facility] FVC ULN (L) 4.96 L [facility] IC BOX (L) 2.43 L [facility] IC PREDICTED (L) 2.60 L/S [facility] PEF LLN (L/S) 4.18 L/S [facility] PEF POST (L/S) 6.41 L/S [facility] PEF PRE (L/S) 5.95 L/S [facility] PEF ULN (L/S) 9.06 L/S [facility] RV Box (L) 3.09 L [facility] RV Box PREDICTED (L) 2.91 L [facility] RV/TLC Box (%) 50 % [facility] RV/TLC Box PREDICTED (%) 41 % [facility] SVC LLN (L) 2.85 L/S [facility] SVC PREDICTED (L) 3.89 L/S [facility] SVC ULN (L) 4.96 L/S [facility] TLC Box (L) 6.16 L [facility] TLC Box PREDICTED (L) 7.45 L [facility] VC (L) BOX 3.28 L [facility] CNOVon 11-29-2023 CNOV Office Visit (FAMPWS ) JUAN JOSE FOSTER ([id number]) 1935 M Date Time Provider Department 11/29/23 7:00 AM JUDITH GARCIA During your visit today, we recorded the following information about you: Pulse Respiration Blood pressure Weight 78/minute 16/minute 126/78 92.1 kg Judith Garcia APRN.CNP 11/29/2023 12:42 PM Signed Juan Jose Foster is a 88 year old male here for a Medicare wellness visit. Medicare Health Risk Assessment General Health Very good Exercise: Minutes/Day 60 min Exercise: Days/Week 4 days Alcohol: Daily Use 2-3 times a week Alcohol: Drinks/Day 1 or 2 Alcohol: 6 or more drinks Never Feel off balance Yes Concerns: Teeth/Dentures No Concerns: Sexual function No Troubled by feelings None of the above Frequency: Eating healthy diet Nearly every day ADLs requiring help None of the above Safety precautions in home/vehicle Yes Smoke, vape, chews tobacco No Difficulty hearing No Difficulty seeing No (Follows eye doc, last exam 11/22/2023) Current Providers Specialists: I have reviewed specialist-related care of the patient in the medical record. Medical/Family history review Reviewed and updated problem list, medical/surgical/family/soc ial history, medications, and allergies. Opioid use review Opioid Medications (last 90 days) No data to display Anxiety/Depression screening PHQ-2 Score: 0 (Lower risk for depression) Recommendation: no further intervention at this time Cognitive screening Mini Cog Score: 2 Cognitive screening reviewed and No further action needed (score 3-5). Functional Observation Was the patient's Timed Up AND Go test unsteady or >= 12 seconds? Yes Advance Care Planning Surrogate decision maker and/or advance care plan documented Shayy Fernandez Measurements BP 126/78 (BP Site: Left Arm, BP Position: Sitting, BP Cuff Size: Regular Adult) Pulse 78 Resp 16 Wt 92.1 kg (203 lb) SpO2 98% BMI 27.53 kg/m? Vision Screening: Follows with optometry/ophthalmology Assessment/Plan Medicare annual wellness visit, subsequent (Z00.00) - Counseled on healthy diet and regular exercise - Fall avoidance information provided - Personalized prevention plan provided Judith Garcia APRN.CNP 11/29/2023 12:42 PM Signed Chief Complaint Patient presents with: Medicare Wellness Exam HPI Juan Jose Foster is a 88 year old male who presents here today for Above Complaints.. Patient has additional concerns to address today as well. He would like to talk about his breathing. Has had pneumonia 3 times in the past, unable to give a timeframe. 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 Climbing a set of stairs gets him pretty out of breath. Spits phlegm up all the time, sometimes is black but typically mostly yellow. Denies CP. Has stress test scheduled for this coming Monday 12/04. States he has had some testing for this before, but it has been in the past and at his doctor during the winter months in [place]. States they always say everything is fine. Is concerned because his SOB seems to be worsening quite a bit and only gets half a day of feeling decent, and then the rest of the day feels bad with his breathing and activity, this is not happening every day and was previously every other day. Past medical history, appointments, medications, allergies reviewed. 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 Followed by [facility]. Previous Surgical History PAST SURGICAL HISTORY Procedure Laterality Date ARTHRP ACETBLR/PROX FEM PROSTC AGRFT/ALGRFT Bilateral 2013 CHEMOSURG MOHS 1ST STAGE Right 06/09/2017 Moh's surgery - right lower leg COLONOSCOPY 06/07/2016 [facility] COLONOSCOPY FLX DX W/COLLJ SPEC WHEN PFRMD 08/07/1999 Colonoscopy COLONOSCOPY FLX DX W/COLLJ SPEC WHEN PFRMD 11/18/2005 Colonoscopy COLONOSCOPY FLX DX W/COLLJ SPEC WHEN PFRMD 11/05/2010 Colonoscopy COLONOSCOPY FLX DX W/COLLJ SPEC WHEN PFRMD 06/2016 several benign polyps removed EGD - BALLOON DILATION, GUIDE esophageal dilatation. ESOPHAGOGASTRODUODENOSCOPY TRANSORAL DIAGNOSTIC 08/23/2012 EGD ESOPHAGOGASTRODUODENOSCOPY TRANSORAL DIAGNOSTIC 07/11/2013 EGD OPEN REPAIR OF ROTATOR CUFF ACUTE 2004 B, 2012 L Rotator cuff repair - bilateral [facility] PAST SURGICAL HISTORY OF plastic surgery for (more content not included)... Normal [facility] XR HIP BILATERAL 5V PEL/AP/L AT EACH HIPon 11-24-2023 IMPRESSION: No acute abnormality Supervisor Instrument Repair: PSCB Transcribe Date/Time: Nov 24 2023 6:25P Dictated by : MARIANA CARABALLO MD This examination was interpreted and the report reviewed and electronically signed by: MARIANA CARABALLO MD on Nov 24 2023 6:25PM EST [facility] * * *Final Report* * * DATE OF EXAM: Nov 23 2023 7:45AM MDO 5353 - XR HIP KOBI 5V PEL+ AP/LAT EA HIP / PROCEDURE REASON: multiple diagnoses * * * * Physician Interpretation * * * * PROCEDURE: Pelvis and bilateral hips INDICATION: Bilateral hip pain TECHNIQUE: XR HIP KOBI 5V PEL+ AP/LAT EA HIP COMPARISON: None FINDINGS: 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 No periprosthetic lucency or fracture. Sacroiliac joints and symphysis pubis are maintained. [facility] Provider, Edgardo Anguiano - 11/24/2023 * * *Final Report* * * DATE OF EXAM: Nov 23 2023 7:45AM MDO 5353 - XR HIP KOBI 5V PEL+ AP/LAT EA HIP / PROCEDURE REASON: multiple diagnoses * * * * Physician Interpretation * * * * PROCEDURE: Pelvis and bilateral hips INDICATION: Bilateral hip pain TECHNIQUE: XR HIP KOBI 5V PEL+ AP/LAT EA HIP COMPARISON: None FINDINGS: 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 No periprosthetic lucency or fracture. Sacroiliac joints and symphysis pubis are maintained. IMPRESSION IMPRESSION: No acute abnormality Supervisor Instrument Repair: PSCB Transcribe Date/Time: Nov 24 2023 6:25P Dictated by : MARIANA CARABALLO MD This examination was interpreted and the report reviewed and electronically signed by: MARIANA CARABALLO MD on Nov 24 2023 6:25PM EST [facility] XR Knee - right 4 Viewson IMPRESSION: Interval TKA. Acute abnormality Supervisor Instrument Repair: PSCB Transcribe Date/Time: Nov 24 2023 6:24P Dictated by : MARIANA CARABALLO MD This examination was interpreted and the report reviewed and electronically signed by: MARIANA CARABALLO MD on Nov 24 2023 6:25PM EST [facility] * * *Final Report* * * DATE OF EXAM: Nov 23 2023 7:45AM MDO 5203 - XR KNEE 4V AP/PA BOTH+LAT/TYRA RT / PROCEDURE REASON: multiple diagnoses * * * * Physician Interpretation * * * * PROCEDURE: Right knee INDICATION: Bilateral hip pain Bilateral hip pain .f/u right knee TECHNIQUE: XR KNEE 4V AP/PA BOTH+LAT/TYRA RT COMPARISON: 10/13/2020 FINDINGS: There is a new total knee arthroplasty in satisfactory position. No periprosthetic fracture or lucency. No joint effusion or soft tissue swelling. [facility] * * *Final Report* * * DATE OF EXAM: Nov 23 2023 7:45AM MDO 5203 - XR KNEE 4V AP/PA BOTH+LAT/TYRA RT / PROCEDURE REASON: multiple diagnoses * * * * Physician Interpretation * * * * PROCEDURE: Right knee INDICATION: Bilateral hip pain Bilateral hip pain .f/u right knee TECHNIQUE: XR KNEE 4V AP/PA BOTH+LAT/TYRA RT COMPARISON: 10/13/2020 FINDINGS: There is a new total knee arthroplasty in satisfactory position. No periprosthetic fracture or lucency. No joint effusion or soft tissue swelling. IMPRESSION IMPRESSION: Interval TKA. Acute abnormality Supervisor Instrument Repair: [employer] Transcribe Date/Time: Nov 24 2023 6:24P Dictated by : MARIANA CARABALLO MD This examination was interpreted and the report reviewed and electronically signed by: MARIANA CARABALLO MD on Nov 24 2023 6:25PM EST [facility] XR Knee - right 4 ViewsOrder ed By: Ccf Provider on 11-24-2023 [facility] XR Lumbar spine AP and Later margie 11-24-2023 IMPRESSION: Degenera tive changes Supervisor Instrument Repair: PSC[employer] Transcribe Date/Time: Nov 24 2023 9:37P Dictated by : MARIANA CARABALLO MD This examination was interpreted and the report reviewed and electronically signed by: MARIANA CARABALLO MD on Nov 24 2023 9:38PM [facility] * * *Final Report* * * DATE OF EXAM: Nov 23 2023 8:56AM MDO 5229 - XR LUMBAR 2V AP/LAT / PROCEDURE REASON: * * * * Physician Interpretation * * * * PROCEDURE: Lumbar spine INDICATION: .lower back pain TECHNIQUE: XR LUMBAR 2V AP/LAT COMPARISON: None FINDINGS: Slight levoscoliosis centered at L2-3. Minimal degenerative anterolisthesis at L4-5. No acute fracture. Mild to moderate degenerative disc disease at all levels, most significant at L2-3 and L5-S1. Lower lumbar facet arthrosis without pars defects. Spurring at the inferior right SI joint. Partially visualized bilateral hip arthroplasties. [facility] Provider, Edgardo Anguiano - 11/24/2023 * * *Final Report* * * DATE OF EXAM: Nov 23 2023 8:56AM MDO 5229 - XR LUMBAR 2V AP/LAT / PROCEDURE REASON: * * * * Physician Interpretation * * * * PROCEDURE: Lumbar spine INDICATION: .lower back pain TECHNIQUE: XR LUMBAR 2V AP/LAT COMPARISON: None FINDINGS: Slight levoscoliosis centered at L2-3. Minimal degenerative anterolisthesis at L4-5. No acute fracture. Mild to moderate degenerative disc disease at all levels, most significant at L2-3 and L5-S1. Lower lumbar facet arthrosis without pars defects. Spurring at the inferior right SI joint. Partially visualized bilateral hip arthroplasties. IMPRESSION IMPRESSION: Degenerative changes Supervisor Instrument Repair: [facility] Transcribe Date/Time: Nov 24 2023 9:37P Dictated by : MARIANA CARABALLO MD This examination was interpreted and the report reviewed and electronically signed by: MARIANA CARABALLO MD on Nov 24 2023 9:38PM [facility] CNOVon 11-23-2023 CNOV Office Visit (ORMDNA ) JUAN JOSE FOSTER ([id number]) 1935 M Date Time Provider Department 11/23/23 8:40 AM JEFFREY ZURITA During your visit today, we recorded the following information about you: Jeffrey Zurita MD 11/23/2023 8:39 AM Signed CONSULT ORTHOPAEDIC: HIP PRIMARY CARE PHYSICIAN: Dipak Aguilar DO REFERRING PROVIDER: No referring provider defined for this encounter. ASSESSMENT AND PLAN This is an 88-year-old male who presents with bilateral hip pain. Patient underwent bilateral total hip replacements a number years ago at an outside institution. Initially did well but continues to have pain in his bilateral hips. This pain unfortunately continues to bother him and affect his activities of daily living as well as hobbies. Patient has a BMI of 28. Also has a history of atrial fibrillation, stage III kidney disease, histoplasmosis, COPD,. Patient is not an active smoker. No history of diabetes no history of any blood clots. Not on any immunosuppressive medication. Patient is on Eliquis 5 mg twice daily. Patient states his pain is mostly in his buttocks and radiates down both thighs. This happens when he goes downstairs as well as upstairs. He states he has some mild back pain denies any numbness or tingling. He has no pain with internal/external rotation of his hip or axial load over his walking or working out is only with stairs. Patient does have some mild right knee pain but overall is tolerable to him. No swelling in the knee no redness no fevers or chills. Impression: Right buttocks and thigh pain, history of total hip replacement. I think this is either due to neurogenic claudication or vascular claudication related to the stairs and exertion. He does have signs of lumbarspondylosis on x-ray. He does have some back pain and his pain mostly in his buttocks and thighs and not in his groin or with the hips on exam are suggestive of possible lumbar etiology. Will refer to spine. Will get an x-ray as well to define his lumbar spondylosis. Will follow-up with spine medicine. Diagnoses: (M25.551, M25.552) Bilateral hip pain (primary encounter diagnosis) Area Deprivation Index (SARAH) 08/31/2021 06/29/2022 SARAH Score National Score 34 41 Patient Health Questionnaire (PHQ-9) 11/11/2017 11/16/2021 11/17/2022 PHQ-9 PHQ-2 Score 0 0 0 (0-4) minimal depression, (5-9) mild depression, (10-14) moderate depression, (15-19) moderately severe depression, (20-27) severe depression Bone Density Risk Screen Juan Jose Foster is at risk for bone loss and has not had a bone densitometry scan in the last 2 years (date of last scan: None on file). Recommend a bone densitometry scan and if indicated on the bone density results, a consult to a bone health specialist (Rheumatology, Endocrinology, or Women's Health) for bone assessment. Risk Factors: Use of Proton Pump Inhibitors History of falls Dx of Chronic Kidney Disease (CKD) Prednisone or use of systemic steroids Chronic Malnutrition Additional Risk Factors COPD Chronic kidney disease eGFR (no units) Date Value 09/17/2016 >60 eGFR- (no units) Date Value 11/13/2020 >60 11/12/2019 >60 Coagulation Latest Ref Rng AND Units 07/29/2022 11/18/2022 11/04/2023 Hemoglobin and Platelets Hemoglobin 13.0 - 17.0 g/dL 14.9 16.0 16.7 Platelet Count 150 - 400 k/uL 183 237 249 Malnutrition: No Malnutrition Screening Tool (MST) score on file- please complete the MST screening tool (click here to open) and refresh the note. ACTIVE PROBLEM LIST Benign Neoplasm of Colon FAMILY HX COLON CANCER Diverticulosis of Colon (Without Mention of Hemorrhage) Urge Incontinence Esophageal Reflux Urinary Incontinence Unspecified Disorder of Prostate Insomnia, Unspecified Bph With Obstruction/Lower Urinary Tract Symptoms Bladder Neck Stricture Hyperglycemia Gerd (Gastroesophageal Reflux Disease) Disorders of Bursae and Tendons in Shoulder Region, Unspecified Rotator Cuff (Capsule) Sprain Frequency of Micturition Overweight (Bmi 25.0-29.9) Digital Mucous Cyst of Finger of Left Hand Digital Mucous Cyst of Finger Chronic Obstructive Pulmonary Disease (Hcc) Histoplasmosis Permanent Atrial Fibrillation (Hcc) Dyslipidemia Ed (Erectile Dysfunction) of Organic Origin Vitamin D Deficiency Incomplete Bladder Emptying Poor Urinary Stream Nocturia Ex-Smoker Pre-Op Exam Elevated Blood Pressure Reading Without Diagnosis of Hypertension Preop Examination Stage 3a Chronic Kidney Disease (Hcc) SUBJECTIVE CHIEF COMPLAINT: Hip Pain HPI: Juan Jose Foster is a 88 year old patient . Juan Jose Foster has had progressive problems with the hip(s) multiple times a day over the past 2 year(s) interfering with activities which include rising from a sitting position, standing for prolonged per (more content not included)... Normal [facility] Panel Informationon 11-22 Radiology Study observation (narrative) [facility] XR HIP KOBI 5V PEL+ AP/LAT EA HIPon 11-23-2023 XR HIP KOBI 5V PEL+ AP/LAT EA HIP * * *Final Report* * * DATE OF EXAM: Nov 23 2023 7:45AM YIMI 5353 - XR HIP KOBI 5V PEL+ AP/LAT EA HIP / PROCEDURE REASON: multiple diagnoses * * * * Physician Interpretation * * * * PROCEDURE: Pelvis and bilateral hips INDICATION: Bilateral hip pain TECHNIQUE: XR HIP KOBI 5V PEL+ AP/LAT EA HIP COMPARISON: None FINDINGS: 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 No periprosthetic lucency or fracture. Sacroiliac joints and symphysis pubis are maintained. IMPRESSION: No acute abnormality Supervisor Instrument Repair: [facility]ANK Transcribe Date/Time: Nov 24 2023 6:25P Dictated by : MARIANA CARABALLO MD This examination was interpreted and the report reviewed and electronically signed by: MARIANA CARABALLO MD on Nov 24 2023 6:25PM EST [id number] [facility] XR KNEE 4V AP/PA BOTH+LAT/ME R RTon 11-23-2023 XR KNEE 4V AP/PA BOTH+LAT/TYRA RT * * *Final Report* * * DATE OF EXAM: Nov 23 2023 7:45AM YIMI 5203 - XR KNEE 4V AP/PA BOTH+LAT/TYRA RT / PROCEDURE REASON: multiple diagnoses * * * * Physician Interpretation * * * * PROCEDURE: Right knee INDICATION: Bilateral hip pain Bilateral hip pain .f/u right knee TECHNIQUE: XR KNEE 4V AP/PA BOTH+LAT/TYRA RT COMPARISON: 10/13/2020 FINDINGS: There is a new total knee arthroplasty in satisfactory position. No periprosthetic fracture or lucency. No joint effusion or soft tissue swelling. IMPRESSION: Interval TKA. Acute abnormality Supervisor Instrument Repair: [employer] Transcribe Date/Time: Nov 24 2023 6:24P Dictated by : MARIANA CARABALLO MD This examination was interpreted and the report reviewed and electronically signed by: MARIANA CARABALLO MD on Nov 24 2023 6:25PM EST [id number] [facility] XR LUMBAR 2V AP/LATon 2023 XR LUMBAR 2V AP/LAT * * *Final Report* * * DATE OF EXAM: Nov 23 2023 8:56AM MDO 5229 - XR LUMBAR 2V AP/LAT / PROCEDURE REASON: * * * * Physician Interpretation * * * * PROCEDURE: Lumbar spine INDICATION: .lower back pain TECHNIQUE: XR LUMBAR 2V AP/LAT COMPARISON: None FINDINGS: Slight levoscoliosis centered at L2-3. Minimal degenerative anterolisthesis at L4-5. No acute fracture. Mild to moderate degenerative disc disease at all levels, most significant at L2-3 and L5-S1. Lower lumbar facet arthrosis without pars defects. Spurring at the inferior right SI joint. Partially visualized bilateral hip arthroplasties. IMPRESSION: Degenerative changes Supervisor Instrument Repair: [facility] Transcribe Date/Time: Nov 24 2023 9:37P Dictated by : MARIANA CARABALLO MD This examination was interpreted and the report reviewed and electronically signed by: MARIANA CARABALLO MD on Nov 24 2023 9:38PM EST [id number] [facility] XR Lumbar spine AP and Later margie 11-23-2023 Radiology Study observation (narrative) [facility] 25(OH)D3 SerPl-mCncon 2023 25-hydroxyvitamin D3 [Mass/Vol] 43.4 ng/mL Normal 31.0-80.0 [facility] 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: Order Comment: Speci men Type: BLOOD SPECIMENOrdering Facility: [facility] Address: [address] [place] [address] Result Comment: Clas sification of 25 [place] Vitamin D status: Deficiency/Insufficiency: < or = 30 ng/ml. Sufficiency/Optimal Levels: 31-80 ng/mL Toxicity: > 100 ng/mL. Test performed by chemiluminescent immunoassay. Performed By: #### 1 989-3 ####[facility] LABCLIA [id number] [place] [address] [place] CBC W Auto Differential pane l (Bld)on 11-04-2023 Basophils (Bld) [#/Vol] 0.09 10*3/uL Normal <0.11 [facility] 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: Order Comment: Speci men Type: BLOOD SPECIMENOrdering Facility: [facility] Address: [address] [place] [address] Performed By: #### 5 7021-8 ####[facility] LABIA [id number] [place] [address] [place] Basophils/100 WBC (Bld) 0.9 % Normal [facility] 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: Order Comment: Speci men Type: BLOOD SPECIMENOrdering Facility: [facility] Address: [address] [place] [address] Performed By: #### 5 7021-8 ####[facility] LABIA [id number] [place] [address] [place] Differential cell count method Nom (Bld) Auto Normal [facility] 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: Order Comment: Speci men Type: BLOOD SPECIMENOrdering Facility: [facility] Address: [address] [place] [address] Performed By: #### 5 7021-8 ####[facility] LABCLIA [id number] [place] [address] [place] Eosinophils (Bld) [#/Vol] 0.34 10*3/uL Normal <0.46 [facility] 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: Order Comment: Speci men Type: BLOOD SPECIMENOrdering Facility: [facility] Address: [address] [place] [address] Performed By: #### 5 7021-8 ####[facility] LABCLIA [id number] [place] [address] [place] Eosinophils/100 WBC (Bld) 3.6 % Normal [facility] 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: Order Comment: Speci men Type: BLOOD SPECIMENOrdering Facility: [facility] Address: [address] [place] [address] Performed By: #### 5 7021-8 ####[facility] LABCLIA [id number] [place] [address] [place] Erythrocyte distribution width (RBC) [Ratio] 14.6 % Normal 11.5-15.0 [facility] 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: Order Comment: Speci men Type: BLOOD SPECIMENOrdering Facility: [facility] Address: [address] [place] [address] Performed By: #### 5 7021-8 ####[facility] LABCLIA [id number] [place] [address] [place] Hematocrit (Bld) [Volume fraction] 49.9 % Normal 39.0-51.0 [facility] 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: Order Comment: Speci men Type: BLOOD SPECIMENOrdering Facility: [facility] Address: [address] [place] [address] Performed By: #### 5 7021-8 ####[facility] LABCLIA [id number] [place] [address] [place] Hemoglobin (Bld) [Mass/Vol] 16.7 g/dL Normal 13.0-17.0 [facility] 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: Order Comment: Speci men Type: BLOOD SPECIMENOrdering Facility: [facility] Address: [address] [place] [address] Performed By: #### 5 7021-8 ####[facility] LABCLIA [id number] [place] [address] [place] Immature granulocytes (Bld) [#/Vol] 0.17 10*3/uL High <0.10 [facility] 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: Order Comment: Speci men Type: BLOOD SPECIMENOrdering Facility: [facility] Address: [address] [place] [address] Performed By: #### 5 7021-8 ####[facility] LABCLIA [id number] [place] [address] [place] Immature granulocytes/100 WBC (Bld) 1.8 % Normal [facility] 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: Order Comment: Speci men Type: BLOOD SPECIMENOrdering Facility: [facility] Address: [address] [place] [address] Performed By: #### 5 7021-8 ####[facility] LABCLIA [id number] [place] [address] [place] Lymphocytes (Bld) [#/Vol] 1.57 10*3/uL Normal 1.00-4.00 [facility] 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: Order Comment: Speci men Type: BLOOD SPECIMENOrdering Facility: [facility] Address: [address] [place] [address] Performed By: #### 5 7021-8 ####[facility] LABCLIA [id number] [place] [address] [place] Lymphocytes/100 WBC (Bld) 16.6 % Normal [facility] 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: Order Comment: Speci men Type: BLOOD SPECIMENOrdering Facility: [facility] Address: [address] [place] [address] Performed By: #### 5 7021-8 ####[facility] LABCLIA [id number] [place] [address] [place] MCH (RBC) [Entitic mass] 30.8 pg Normal 26.0-34.0 [facility] 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: Order Comment: Speci men Type: BLOOD SPECIMENOrdering Facility: [facility] Address: [address] [place] [address] Performed By: #### 5 7021-8 ####[facility] LABCLIA [id number] [place] [address] [place] MCHC (RBC) [Mass/Vol] 33.5 g/dL Normal 30.5-36.0 [facility] 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: Order Comment: Speci men Type: BLOOD SPECIMENOrdering Facility: [facility] Address: [address] [place] [address] Performed By: #### 5 7021-8 ####[facility] LABIA [id number] [place] [address] [place] MCV (RBC) [Entitic vol] 92.1 fL Normal 80.0-100.0 [facility] 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: Order Comment: Speci men Type: BLOOD SPECIMENOrdering Facility: [facility] Address: [address] [place] [address] Performed By: #### 5 7021-8 ####[facility] LABIA [id number] [place] [address] [place] Monocytes (Bld) [#/Vol] 0.91 10*3/uL High <0.87 [facility] 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: Order Comment: Speci men Type: BLOOD SPECIMENOrdering Facility: [facility] Address: [address] [place] [address] Performed By: #### 5 7021-8 ####[facility] LABIA [id number] [place] [address] [place] Monocytes/100 WBC (Bld) 9.6 % Normal [facility] 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: Order Comment: Speci men Type: BLOOD SPECIMENOrdering Facility: [facility] Address: [address] [place] [address] Performed By: #### 5 7021-8 ####[facility] LABCLIA [id number] [place] [address] [place] Neutrophils (Bld) [#/Vol] 6.40 10*3/uL Normal 1.45-7.50 [facility] 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: Order Comment: Speci men Type: BLOOD SPECIMENOrdering Facility: [facility] Address: [address] [place] [address] Performed By: #### 5 7021-8 ####[facility] LABCLIA [id number] [place] [address] [place] Neutrophils/100 WBC (Bld) 67.5 % Normal [facility] 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: Order Comment: Speci men Type: BLOOD SPECIMENOrdering Facility: [facility] Address: [address] [place] [address] Performed By: #### 5 7021-8 ####[facility] LABIA [id number] [place] [address] [place] Nucleated RBC (Bld) [#/Vol] 10*3/uL Normal <0.01 [facility] 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: Order Comment: Speci men Type: BLOOD SPECIMENOrdering Facility: [facility] Address: [address] [place] [address] Performed By: #### 5 7021-8 ####[facility] LABIA [id number] [place] [address] [place] Nucleated RBC/100 WBC (Bld) [Ratio] 0.0 /100 WBC Normal [facility] 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: Order Comment: Speci men Type: BLOOD SPECIMENOrdering Facility: [facility] Address: [address] [place] [address] Performed By: #### 5 7021-8 ####[facility] LABIA [id number] [place] [address] [place] Platelet mean volume (Bld) [Entitic vol] 10.5 fL Normal 9.0-12.7 [facility] 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: Order Comment: Speci men Type: BLOOD SPECIMENOrdering Facility: [facility] Address: [address] [place] [address] Performed By: #### 5 7021-8 ####[facility] LABCLIA [id number] [address] [address] [place] Platelets (Bld) [#/Vol] 249 10*3/uL Normal 150-400 [facility] 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: Order Comment: Speci men Type: BLOOD SPECIMENOrdering Facility: [facility] Address: [address] [place] [address] Performed By: #### 5 7021-8 ####[facility] LABCLIA [id number] [place] [address] [place] RBC (Bld) [#/Vol] 5.42 10*6/uL Normal 4.20-6.00 [facility] 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: Order Comment: Speci men Type: BLOOD SPECIMENOrdering Facility: [facility] Address: [address] [place] [address] Performed By: #### 5 7021-8 ####[facility] LABIA [id number] [place] [address] [place] WBC (Bld) [#/Vol] 9.48 10*3/uL Normal 3.70-11.00 [facility] 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: Order Comment: Speci men Type: BLOOD SPECIMENOrdering Facility: [facility] Address: [address] [place] [address] Performed By: #### 5 7021-8 ####[facility] LABIA [id number] [place] [address] [place] Comprehensive metabolic 2000 panelon 11-04-2023 Albumin [Mass/Vol] 4.1 g/dL Normal 3.9-4.9 [facility] 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: Order Comment: Speci men Type: BLOOD SPECIMENOrdering Facility: [facility] Address: [address] [place] [address] Performed By: #### 2 4323-8, 2132-9 ####[facility] LABIA [id number] [place] [address] [place] ALP [Catalytic activity/Vol] 90 U/L Normal 38-113 [facility] 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: Order Comment: Speci men Type: BLOOD SPECIMENOrdering Facility: [facility] Address: [address] [place] [address] Performed By: #### 2 432-8, 2131-10 ####[facility] LABCLIA [id number] [place] [address] [place] ALT [Catalytic activity/Vol] 23 U/L Normal 10-54 [facility] 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: Order Comment: Speci men Type: BLOOD SPECIMENOrdering Facility: [facility] Address: [address] [place] [address] Performed By: #### 2 4328, 2131-10 ####[facility] LABCLIA [id number] [place] [address] [place] Anion gap [Moles/Vol] 9 mmol/L Normal 8-15 [facility] 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: Order Comment: Speci men Type: BLOOD SPECIMENOrdering Facility: [facility] Address: [address] [place] [address] Performed By: #### 2 8, 2131-10 ####[facility] LABCLIA [id number] [place] [address] [place] AST [Catalytic activity/Vol] 30 U/L Normal 14-40 [facility] 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: Order Comment: Speci men Type: BLOOD SPECIMENOrdering Facility: [facility] Address: [address] [place] [address] Performed By: #### 2 432-8, 2131-10 ####[facility] LABCLIA [id number] [place] [id number] [place] Bilirubin [Mass/Vol] 1.0 mg/dL Normal 0.2-1.3 [facility] 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: Order Comment: Speci men Type: BLOOD SPECIMENOrdering Facility: [facility] Address: [address] [place] [address] Performed By: #### 2 4322-09, 2131-10 ####[facility] LABCLIA [id number] [address] [address] [place] Calcium [Mass/Vol] 10.5 mg/dL High 8.5-10.2 [facility] 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: Order Comment: Speci men Type: BLOOD SPECIMENOrdering Facility: [facility] Address: [address] [place] [id number] Performed By: #### 2 4322-09, 2131-10 ####[facility] LABCLIA [id number] [place] [id number] [place] Chloride [Moles/Vol] 101 mmol/L Normal 98-107 [facility] 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: Order Comment: Speci men Type: BLOOD SPECIMENOrdering Facility: [facility] Address: [address] [place] [id number] Performed By: #### 2 4322-09, 2131-10 ####[facility] LABCLIA [id number] [place] [id number] [place] CO2 [Moles/Vol] 29 mmol/L Normal 22-30 [facility] 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: Order Comment: Speci men Type: BLOOD SPECIMENOrdering Facility: [facility] Address: [address] [place] [address] Performed By: #### 2 4322-09, 2131-10 ####[facility] LABCLIA [id number] [address] [address] [place] Creatinine [Mass/Vol] 1.49 mg/dL High 0.73-1.22 [facility] 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: Order Comment: Speci men Type: BLOOD SPECIMENOrdering Facility: [facility] Address: [address] [place] [address] Performed By: #### 2 4322-092131-10 ####[facility] LABCLIA [id number] [place] [address] [place] Creatinine and Glomerular filtration rate.predicted panel (S/P/Bld) 45 mL/min/1.73m??? Low >=60 [facility] 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: Order Comment: Jayson moffett Type: BLOOD SPECIMENOrdering Facility: [facility] Address: [address] [place] [address] Result Comment: Yani mated Glomerular Filtration Rate (eGFR) is calculated using the 2020 CKD-EPI creatinine equation. This equation utilizes serum creatinine, sex, and age as parameters. The creatinine assay has traceable calibration to isotope dilution-mass spectrometry. Refer to KDIGO guidelines for clinical interpretation. In patients with unstable renal function, e.g. those with acute kidney injury, the eGFR may not accurately reflect actual GFR. Performed By: #### 2 4323-8, 2131-10 ####[facility] LABIA [id number] [place] [address] [place] Glucose [Mass/Vol] 119 mg/dL High 74-99 [facility] 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: Order Comment: Jayson moffett Type: BLOOD SPECIMENOrdering Facility: [facility] Address: [address] [place] [address] Result Comment: The [place] Diabetes Association (ADA) provides guidance for cutoff values for fasting glucose and random glucose. The ADA defines fasting as no caloric intake for at least 8 hours. Fasting plasma glucose results between 100 to 125 mg/dL indicate increased risk for diabetes (prediabetes). Fasting plasma glucose results greater than or equal to 126 mg/dL meet the criteria for diagnosis of diabetes. In the absence of unequivocal hyperglycemia, results should be confirmed by repeat testing. In a patient with classic symptoms of hyperglycemia or hyperglycemic crisis, random plasma glucose results greater than or equal to 200 mg/dL meet the criteria for diagnosis of diabetes. Reference: Standards of Medical Care in Diabetes 2016, [place] Diabetes Association. Diabetes Care. 2016.39(Suppl 1). Performed By: #### 2 4323-8, 2131-10 ####[facility] LABCLIA [id number] [place] [address] [place] Potassium [Moles/Vol] 4.8 mmol/L Normal 3.7-5.1 [facility] 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: Order Comment: Speci men Type: BLOOD SPECIMENOrdering Facility: [facility] Address: [address] [place] [address] Performed By: #### 2 432-8, 2131-10 ####[facility] LABCLIA [id number] [place] [address] [place] Protein [Mass/Vol] 6.9 g/dL Normal 6.3-8.0 [facility] 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: Order Comment: Speci men Type: BLOOD SPECIMENOrdering Facility: [facility] Address: [address] [place] [address] Performed By: #### 2 4328, 2131-10 ####[facility] LABCLIA [id number] [place] [address] [place] Sodium [Moles/Vol] 139 mmol/L Normal 136-144 [facility] 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: Order Comment: Speci men Type: BLOOD SPECIMENOrdering Facility: [facility] Address: [address] [place] [address] Performed By: #### 2 4328, 2131-10 ####[facility] LABCLIA [id number] [place] [address] [place] Urea nitrogen [Mass/Vol] 20 mg/dL Normal 9-24 [facility] 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: Order Comment: Speci men Type: BLOOD SPECIMENOrdering Facility: [facility] Address: [address] [place] [address] Performed By: #### 2 4323-8, 2131-10 ####[facility] LABCLIA [id number] [place] [id number] [place] HbA1c (Bld)on 11-04-2023 Average glucose Estimated from glycated hemoglobin (Bld) [Mass/Vol] 140 mg/dL Normal [facility] 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: Order Comment: Jayson moffett Type: BLOOD SPECIMENOrdering Facility: [facility] Address: [address] [place] [address] Result Comment: eAG: (Estimated average glucose) is a calculated value from HgbA1c and is pharmaceutical sales representative of the average blood glucose level in the last 2-3 month period. Performed By: #### 5 5454-3 ####[facility] LABCLIA [id number] [place] [address] [place] HbA1c (Bld) [Mass fraction] 6.5 % High 4.3-5.6 [facility] 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: Order Comment: Jayson moffett Type: BLOOD SPECIMENOrdering Facility: [facility] Address: [address] [place] [address] Result Comment: [place] Diabetes Association guidelines indicate that patients with HgbA1c in the range 5.7-6.4% are at increased risk for development of diabetes, and intervention by lifestyle modification may be beneficial. HgbA1c greater or equal to 6.5% is considered diagnostic of diabetes. Performed By: #### 5 5454-3 ####[facility] LABCLIA [id number] [place] [address] [place] Lipid 1996 panelon 4 Cholesterol [Mass/Vol] 139 mg/dL Normal <200 [facility] 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: Order Comment: Jayson moffett Type: BLOOD SPECIMENOrdering Facility: [facility] Address: [address] [place] [address] Result Comment: <200 mg/dL, Desirable 200-239 mg/dL, Borderline high >239 mg/dL, High Performed By: #### 2 4331-1, 3024-7, 59584-0, 3016-3 ####[facility] LABCLIA [id number] [address] [place] Cholesterol in HDL [Mass/Vol] 34 mg/dL Low >39 [facility] 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: Order Comment: Jayson zuhair Type: BLOOD SPECIMENOrdering Facility: [facility] Address: [address] [place] [address] Result Comment: 40-5 9 mg/dL, Acceptable >59 mg/dL, High: Negative risk factor for coronary heart disease <40 mg/dL, Low: Positive risk factor for coronary heart disease Performed By: #### 2 4331-1, 4-7, 28308-4, 3015-3 ####[facility] LABCLIA [id number] [place] [address] [place] Cholesterol in LDL [Mass/Vol] 84 mg/dL Normal <100 [facility] 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: Order Comment: Jayson zuhair Type: BLOOD SPECIMENOrdering Facility: [facility] Address: [address] [place] [address] Result Comment: <100 mg/dL, Optimal 100-129 mg/dL, Near optimal/above optimal 130-159 mg/dL, Borderline high 160-189 mg/dL, High >189 mg/dL, Very high Secondary prevention optimal LDL Cholesterol levels are recommended to be < 70 mg/dL Performed By: #### 2 4331-1, 7, , 3015-3 ####[facility] LABCLIA [id number] [place] [address] [place] Cholesterol in LDL/Cholesterol in HDL [Mass ratio] 2.47 {ratio} Normal <2.54 [facility] 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: Order Comment: Jayson moffett Type: BLOOD SPECIMENOrdering Facility: [facility] Address: [address] [place] [address] Result Comment: Refe rence: 1. National Cholesterol Education Program ATP III Guideline At-A-Glance Quick Desk Reference: National Heart, Lung, and Blood Milner. National Institutes of Health. 2001: NIH Publication No. 01-3305. 2. An International Atherosclerosis Society position paper: global recommendations for the management of dyslipidemia: executive summary, Atherosclerosis. 2014: 232(2):410-413. Performed By: #### 2 4331-1, 3023-7, , 3015-3 ####[facility] LABCLIA [id number] [address] [address] [place] Cholesterol in VLDL [Mass/Vol] 21 mg/dL Normal <30 [facility] 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: Order Comment: Speci men Type: BLOOD SPECIMENOrdering Facility: [facility] Address: [address] [place] [address] Performed By: #### 2 4331-1, 3023-7, 25509-2, 3015-3 ####[facility] LABCLIA [id number] [address] [address] [place] Cholesterol non HDL [Mass/Vol] 105 mg/dL Normal <130 [facility] 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: Order Comment: Speci men Type: BLOOD SPECIMENOrdering Facility: [facility] Address: [address] [place] [address] Result Comment: <130 mg/dL, Optimal 130-159 mg/dL, Near optimal/above optimal 160-189 mg/dL, Borderline high 190-219 mg/dL, High >219 mg/dL, Very high Secondary prevention optimal non HDL Cholesterol levels are recommended to be <100 mg/dL Performed By: #### 2 4331-1, 3023-7, 10280-7, 3015-3 ####[facility] LABCLIA [id number] [address] [address] [place] Cholesterol.total/C holesterol in HDL [Mass ratio] 4.09 {ratio} Normal <5.10 [facility] 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: Order Comment: Speci men Type: BLOOD SPECIMENOrdering Facility: [facility] Address: [address] [place] [address] Performed By: #### 2 4331-1, 3023-7, , 3015-3 ####[facility] LABCLIA [id number] [address] [address] [place] FASTING TIME 12 hrs Normal [facility] 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: Order Comment: Speci men Type: BLOOD SPECIMENOrdering Facility: [facility] Address: [address] [place] [address] Performed By: #### 2 4331-1, 3023-7, , 3015-3 ####[facility] LABCLIA [id number] [place] [address] [place] Triglyceride [Mass/Vol] 107 mg/dL Normal <150 [facility] 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: Order Comment: Speci men Type: BLOOD SPECIMENOrdering Facility: [facility] Address: [address] [place] [address] Result Comment: <150 mg/dL, Normal 150-199 mg/dL, Borderline high 200-499 mg/dL, High >499 mg/dL, Very high Performed By: #### 2 4331-1, 7, , 3015-3 ####[facility] LABCLIA [id number] [place] [address] [place] Magnesium SerPl-mCncon 11-03 Magnesium [Mass/Vol] 1.9 mg/dL Normal 1.7-2.3 [facility] 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: Order Comment: Speci men Type: BLOOD SPECIMENOrdering Facility: [facility] Address: [address] [place] [address] Performed By: #### 2 4331-1, 3023-08, , 3 ####[facility] LABCLIA [id number] [place] [address] [place] PSA/PROSTATE SPECIFIC ANTIGE N SCREENINGon 11-04-2023 Prostate specific Ag [Mass/Vol] 0.32 ng/mL Normal <2.60 [facility] 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: Order Comment: Speci men Type: BLOOD SPECIMENOrdering Facility: [facility] Address: [address] [place] [address] Result Comment: Tota l PSA test methodology used is the Electrochemiluminescence Immunoassay by [employer]. Total PSA values by differing methodologies cannot be interchanged. Performed By: #### P SAS1 ####[facility] LABIA [id number] [place] [id number] [place] T4 Free SerPl-ncon 024 Free T4 [Mass/Vol] 1.2 ng/dL Normal 0.9-1.7 [facility] 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: Order Comment: Speci men Type: BLOOD SPECIMENOrdering Facility: [facility] Address: [address] [place] [address] Performed By: #### 2 4331-1, 3024-7, 30717-0, 3016-3 ####[facility] [id number] [place] [address] [place] TSH SerPl-aCncon 11-04-2023 TSH Qn 3.930 m[IU]/L Normal 0.270-4.200 [facility] 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: Order Comment: Speci men Type: BLOOD SPECIMENOrdering Facility: [facility] Address: [address] [place] [address] Performed By: #### 2 4331-1, 3024-7, 46979-5, 3016-3 ####[facility] [id number] [place] [address] [place] Vit B12 SerPl-ncon 024 Cobalamin (Vitamin B12) [Mass/Vol] 520 pg/mL Normal 232-1245 [facility] 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: Order Comment: Speci men Type: BLOOD SPECIMENOrdering Facility: [facility] Address: [address] [place] [address] Performed By: #### 2 4323-8, 2132-9 ####[facility] [id number] [place] [address] [place] CNPNeetu 11-02-2023 CNPN Telephone (FAMPWS) JUAN JOSE FOSTER ([id number]) 1935 M Date Time Provider Department 11/02/23 DIPAK AGUILAR FAMPWS During your visit today, we recorded the following information about you: Dipak Aguilar DO 11/02/2023 11:41 AM Signed Labs ordered Dipak Aguilar DO Allergies As of Date: 11/02/2023 Noted Allergy Reaction CYPRESS 09/22/2010 14 - Other: See Comments Comments: sneezing,runny nose CEDAR 08/17/2010 3 - Cough Comments: also [place] with same reaction MOLD 08/17/2010 3 - Cough Date Reviewed: 09/12/2023 Reviewed by: Camille Castellanos RN - Fully Assessed Primary Visit Diagnosis:Fatigue, unspecified type [R53.83] Other Visit Diagnoses:Stage 3a chronic kidney 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] Atrial fibrillation, unspecified type (HCC) [I48.91] Vitamin D deficiency [E55.9] BPH with obstruction/lower urinary tract symptoms [N40.1, N13.8] Hyperglycemia [R73.9] Dyslipidemia [E78.5] Screening for prostate cancer [Z12.5] Order(s):COMPLETE BLOOD COUNT AND DIFFERENTIAL [SQCBCDIF] Order #: [id number] FUTURE THYROID STIMULATING HORMONE [SQTSH] Order #: [id number] FUTURE T4 FREE/FREE THYROXINE [SQFT4] Order #: [id number] FUTURE LIPID PANEL BASIC [SQLIPB] Order #: [id number] FUTURE HEMOGLOBIN A1C [HTXYW7Z] Order #: [id number] FUTURE COMPREHENSIVE METABOLIC PANEL [SQCMP] Order #: [id number] FUTURE IRON AND TIBC [SQIRON] Order #: [id number] FUTURE VITAMIN D 25 HYDROXY [SQVITD] Order #: [id number] FUTURE VITAMIN B12 [SQB12] Order #: [id number] FUTURE MAGNESIUM [SQMG1] Order #: [id number] FUTURE PSA/PROSTATE SPECIFIC ANTIGEN SCREENING [SQPSAS1] Order #: [id number] FUTURE Prescriptions as of 11/03/2023 - apixaban (ELIQUIS) 5 mg tab(s) Take 1 tablet by mouth two times a day. - omeprazole (PRILOSEC) 20 mg capsule Take 1 capsule by mouth once daily. 1/2 hr before meal. - metoprolol tartrate, short acting, (LOPRESSOR) 50 mg tablet take 1 tablet twice a day - calcium citrate/vitamin D3 (CALCIUM CITRATE + D ORAL) Take 800 mg by mouth once daily. - amoxicillin (AMOXIL) 500 mg capsule TAKE FOUR CAPSULES BY MOUTH ONE HOUR BEFORE APPOINTMENT - TRELEGY ELLIPTA 200-62.5-25 mcg dsdv Inhale as instructed once daily. Problem List As Of Date 11/02/2023 Noted Resolved BENIGN NEOPLASM LG BOWEL [D12.6] FAMILY HX COLON CANCER [Z80.0] DIVERTICULOSIS OF COLON W/O BLEED [K57.30] URGE INCONTINENCE [N39.41] 11/19/2005 ESOPHAGEAL REFLUX [K21.9] 11/07/2006 Urinary incontinence [R32] 11/14/2007 PROSTATIC DISORDER NOS [N42.9] 11/14/2007 INSOMNIA NOS [G47.00] 11/14/2007 BPH with obstruction/lower urinary tract sympto*11/20/2007 Bladder neck stricture [N32.0] 11/20/2007 Hyperglycemia [R73.9] 07/03/2009 GERD (Gastroesophageal Reflux Disease) [K21.9] 08/15/2009 Disorders of bursae and tendons in shoulder reg*10/15/2010 Rotator cuff (capsule) sprain [S43.429A] 10/15/2010 Frequency of micturition [R35.0] 10/21/2016 Overweight (BMI 25.0-29.9) [E66.3] 11/10/2016 Digital mucous cyst of finger of left hand [M67*07/01/2017 Digital mucous cyst of finger [M67.449] 07/27/2017 Asthma with chronic obstructive pulmonary disea*10/26/2018 09/12/2019 Chronic obstructive pulmonary disease (HCC) [J4* Persistent atrial fibrillation (HCC) [I48.19] 10/11/2019 11/12/2021 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] 11/23/2019 Atrial fibrillation, chronic (HCC) [I48.20] 08/26/2020 11/12/2021 Permanent atrial fibrillation (HCC) [I48.21] 08/31/2021 Dyslipidemia [E78.5] 11/16/2021 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*11/16/2021 Vitamin D deficiency [E55.9] 11/16/2021 Atrial fibrillation (HCC) [I48.91] 11/16/2021 11/16/2022 Incomplete bladder emptying [R33.9] 06/29/2022 Poor urinary stream [R39.12] 06/29/2022 Nocturia [R35.1] 06/29/2022 Ex-smoker [Z87.891] 07/29/2022 Pre-op exam [Z01.818] 07/29/2022 Elevated blood pressure reading without diagnos*07/29/2022 Preop examination [Z01.818] 10/20/2022 Stage 3a chronic kidney 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] 11/16/2021 Encounter Status:Closed by JUDITH GARCIA on 11/03/23 Normal [facility] 12 Lead EKGon 10-01-2023 12 Lead EKG [facility] [address] [place] [address] 12 Lead EKG 10/01/23 0530 MR#: [id number] Acct: [id number] Name: JUAN JOSE FOSTER Rep #: [id number] : 1935 88 From: Jareth Currie MD Attending Dr: Dr. Khai Bose MD Status: DIS CINDI Ordering Dr: Vaibhav North DO Date: 10/01/23 Location: [facility] Sex: M C Admitted: 09/30/23 Test Reason : AM EKG Blood Pressure : / mmHG Vent. Rate : 076 BPM Atrial Rate : 000 BPM P-R Int : 000 ms QRS Dur : 140 ms QT Int : 430 ms P-R-T Axes : 000 073 -24 degrees QTc Int : 483 ms Atrial fibrillation Right bundle branch block Abnormal ECG When compared with ECG of 30-SEP-2023 13:14, MANUAL COMPARISON REQUIRED, DATA IS UNCONFIRMED Confirmed by KALEJARETH CALDERA MD ([id number]), commissioning editor MIGUEL STRAUSS ([id number]) on 10/03/2023 2:18:16 PM Referred By: Confirmed By:JARETH CURRIE MD 10/03/23 1418 Date Jareth Currie MD CC: Dr. Vaibhav North, DO; Dr. Dipak Aguilar, DO; Dr. Khai Bose MD Signed Normal [facility] Basic Metabolic Profile (BMP )on 10-01-2023 BUN/CRE 15.0 RATIO Normal 10-20 [facility] 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: Order Comment: Comme nts: NPO at [place] prior to lipid panel Performed By: #### L 500.4100, L100.0500, L500.2500 ####[facility] [address] [place], [address] CA,Total 9.6 mg/dL Normal 8.5-10.1 [facility] 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: Order Comment: Comme nts: NPO at [place] prior to lipid panel Performed By: #### L 500.4100, L100.0500, L500.2500 ####[facility] [address] [place], [address] Chloride [Moles/Vol] 106 mmol/L Normal 98-107 [facility] 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: Order Comment: Comme nts: NPO at [place] prior to lipid panel Performed By: #### L 500.4100, L100.0500, L500.2500 ####[facility] [address] [place], [address] CO2 [Moles/Vol] 30.0 mmol/L Normal 21.0-32.0 [facility] 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: Order Comment: Comme nts: NPO at [place] prior to lipid panel Performed By: #### L 500.4100, L100.0500, L500.2500 ####[facility] [address] [place], [address] Creatinine [Mass/Vol] 1.47 mg/dL High 0.70-1.30 [facility] 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: Order Comment: Comme nts: NPO at [place] prior to lipid panel Result Comment: The validity of the calculated GFR GFRAA in patients over 70 years has not been determined. Clinical correlation is essential. Performed By: #### L 500.4100, L100.0500, L500.2500 ####[facility] [address] [place], [address] ECRCL 41.99 ml/min Normal [facility] 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: Order Comment: Comme nts: NPO at [place] prior to lipid panel Performed By: #### L 500.4100, L100.0500, L500.2500 ####[facility] [address] [place], [address] EST GFR - AA 58 mL/min Low >60 [facility] 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: Order Comment: Comme nts: NPO at [place] prior to lipid panel Result Comment: Afri can Romanian GFR Calc Performed By: #### L 500.4100, L100.0500, L500.2500 ####[facility] [address] [place], [address] GAP 4 Low 5-15 [facility] 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: Order Comment: Comme nts: NPO at [place] prior to lipid panel Performed By: #### L 500.4100, L100.0500, L500.2500 ####[facility] [address] [place], [address] GFR/1.73 sq M.predicted among non-blacks MDRD (S/P/Bld) [Vol rate/Area] 48 mL/min/{1.73_m2} Low >60 [facility] 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: Order Comment: Comme nts: NPO at [place] prior to lipid panel Result Comment: Non- GFR Calc Performed By: #### L 500.4100, L100.0500, L500.2500 ####[facility] [address] [place], [address] Glucose [Mass/Vol] 100 mg/dL Normal 74-106 [facility] 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: Order Comment: Comme nts: NPO at [place] prior to lipid panel Result Comment: Fast ing Glucose result from 100 to 125 mg/dL suggests IMPAIRED HOMEOSTASIS per A.D.A. criteria. Performed By: #### L 500.4100, L100.0500, L500.2500 ####[facility] [address] [place], [address] Potassium [Moles/Vol] 3.9 mmol/L Normal 3.5-5.1 [facility] 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: Order Comment: Comme nts: NPO at [place] prior to lipid panel Performed By: #### L 500.4100, L100.0500, L500.2500 ####[facility] [address] [place], [address] Sodium [Moles/Vol] 140 mmol/L Normal 136-145 [facility] 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: Order Comment: Comme nts: NPO at [place] prior to lipid panel Performed By: #### L 500.4100, L100.0500, L500.2500 ####[facility] [address] [place], [address] Urea nitrogen [Mass/Vol] 22 mg/dL High 7-18 [facility] 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: Order Comment: Comme nts: NPO at [place] prior to lipid panel Performed By: #### L 500.4100, L100.0500, L500.2500 ####[facility] [address] [place], [address] CBC-Complete Blood Cnt No Di ffon 10-01-2023 Erythrocyte distribution width (RBC) [Ratio] 14.6 % Normal 11.6-14.6 [facility] 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: Performed By: #### L 500.4100, L100.0500, L500.2500 ####[facility] [address] [place], [address] Hematocrit (Bld) [Volume fraction] 45.1 % Normal 40-54 [facility] 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: Performed By: #### L 500.4100, L100.0500, L500.2500 ####[facility] [address] [place], [address] Hemoglobin (Bld) [Mass/Vol] 15.0 g/dL Normal 13.0-16.5 [facility] 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: Performed By: #### L 500.4100, L100.0500, L500.2500 ####[facility] [address] [place], [address] MCH (RBC) [Entitic mass] 29.5 pg Normal 27.0-32.0 [facility] 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: Performed By: #### L 500.4100, L100.0500, L500.2500 ####[facility] [address] [place], [address] MCHC (RBC) [Mass/Vol] 33.3 g/dL Normal 32-36 [facility] 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: Performed By: #### L 500.4100, L100.0500, L500.2500 ####[facility] [address] [place], [address] MCV (RBC) [Entitic vol] 88.6 fL Normal 80-94 [facility] 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: Performed By: #### L 500.4100, L100.0500, L500.2500 ####[facility] [address] [place], [address] Platelet mean volume (Bld) [Entitic vol] 10.6 fL Normal 6.2-12.0 [facility] 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: Performed By: #### L 500.4100, L100.0500, L500.2500 ####[facility] [address] [place], [address] Platelets (Bld) [#/Vol] 183 10*3/uL Normal 150-450 [facility] 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: Performed By: #### L 500.4100, L100.0500, L500.2500 ####[facility] [address] [place], [address] RBC (Bld) [#/Vol] 5.09 10*6/uL Normal 4.6-6.2 [facility] 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: Performed By: #### L 500.4100, L100.0500, L500.2500 ####[facility] [address] [place], [address] RDW SD 46.5 fl High 35.1-43.9 [facility] 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: Performed By: #### L 500.4100, L100.0500, L500.2500 ####[facility] [address] [place], [address] WBC (Bld) [#/Vol] 9.7 10*3/uL Normal 4.4-11.0 [facility] 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: Performed By: #### L 500.4100, L100.0500, L500.2500 ####[facility] [address] [place], [address] Discharge Instructionon 09-21 Discharge Instruction [facility] Medical Records Department [address] [place] [address] Instructions for Home/Discharge Instructions 10/01/23 1428 MR#: [id number] Acct: [id number] Name: JUAN JOSE FOSTER Rep #: [id number] : 1935 88 From: Khai Bose MD PCP: Dr. Dipak Aguilar, DO Status:DIS CINDI Discharge Instructions Diet Discharge Diet: 2000 mg Sodium Diet Activity Discharge Activity: Return to Normal Activity Weight Bearing Status: Weight bearing as tolerated Dressing / Incision Call your doctor if you observe: Fever of 101 or Higher, Coldness, Increased Pain, Numbness or Tingling, Change in Color, Inability to urinate, Inability to have a bowel movement, Shortness of breath, Dizziness, Fainting spells, Swelling in the ankles, Chest pain, Prolonged hiccupping, Increased palpitations (irregular heartbeat) and Calf discomfort Follow Up Care When: IN 2 WEEKS Test Results: Test results from this visit will be discussed in further detail at your follow-up appointment, if applicable. Discharge Plan Admission Admit Date/Time: 09/30/23 13:24 Primary Reason for Your Visit: Expressive aphasia /TIA Attending Provider: Khai Bose Primary Care Provider: Dipak Aguilar Consulting Providers: Terell Ramsey; Calin Moncada; Emmy Croft; Zoie Quesada; Deisy Lyons; Kannan Vuong; Maria G Dunham; Neo Coburn; Mariana Cedillo; Jose Gillis; Anastasia Rollins; Lennox Machado; Graciela Mendez; Louisa Bell; Oziel Stoner; Colton Burgos; Danny Her; Varun Rodríguez; Lexy Scott; Richard Chaudhry; Vaibhav North Instructions Additional Instructions / Restrictions: Patient was advised to consider baby aspirin if he is getting TIA symptoms on being Eliquis but he does not want to try right now. Advised to discuss with PCP Discharge Orders/Prescriptions Prescriptions: New atorvastatin 40 mg Tablet 40 mg PO QHS 30 Days Qty: 30 2RF Continued metoprolol tartrate 50 mg tablet 50 mg PO BID omeprazole 20 mg capsule,delayed release(DR/EC) 20 mg PO DAILY Eliquis 5 mg tablet 5 mg PO BID Trelegy Ellipta 200-62.5-25 mcg blister with device 1 ea inhalation DAILY calcium carbonate-vitamin D3 600 mg-10 mcg (400 unit) tablet 1 tab PO DAILY Probiotic 10 billion cell capsule 10,000 mmu cells PO DAILY multivitamin [Daily Multi-Vitamin] Tablet 1 tab PO DAILY Referrals / Follow Up: Dipak Aguilar DO [Primary Care Provider] - Jamal Lorenzo MD [Non-Staff] - Within 1 Month (For TIA symptom) Disposition Disposition (needs filled in before D/C Order can be placed): Home, Self Care 10/01/23 1434 Khai Bose MD CC: Zoie Quesada; Graciela Mendez; Colton Burgos; Deisy Lyons MD; Emmy Croft MD; Terell Ramsey MD; Dr. Vaibhav North DO; Dr. Calin Moncada MD; Dr. Kannan Vuong MD; Dr. Maria G Dunham MD; Dr. Mariana Cedillo MD; Dr. Neo Coburn MD; Dr. Dipak Aguilar DO; Dr. Jose Gillis MD; Dr. Lennox Machado DO; Dr. Oziel Stoner MD; Dr. Louisa Bell MD; Dr. Danny Hre MD; Dr. Varun Rodríguez MD; Dr. Lexy Scott MD; Anastasia Rollins DO; Richard Chaudhry MD Signed Normal [facility] L501.4020on 10-01-2023 TROPONIN-I HS 17 pg/mL Normal 3.0-78.0 [facility] 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: Order Comment: 'TROP ' Serial specimen #1, #2 or #3: 1 Result Comment: Hunter allen Note: New Test Units and Gender Specific Reference Ranges. For more information see Policy Stat Procedure [place] High Sensitivity Troponin (TNIH) and attachments. Performed By: #### L 501.4020 ####[facility] [address] [place], [place], [address] Lipid Profileon 10-01-2023 Cholesterol [Mass/Vol] 123 mg/dL Normal 200 [facility] 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: Order Comment: Comme nts: NPO at MN prior to lipid panel Result Comment: <200 mg/dL Desirable 200-240 mg/dL Borderline >240 mg/dL High Risk Performed By: #### L 500.4100, L100.0500, L500.2500 ####[facility] [address] [place], [address] Cholesterol in HDL [Mass/Vol] 35 mg/dL Low [facility] 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: Order Comment: Comme nts: NPO at MN prior to lipid panel Result Comment: The drugs N-Acetylcysteine and Metamizole may falsely depress this assay. Reference Range HDL <40 mg/dL Low HDL Cholesterol HDL >or= 60 mg/dL High HDL Cholesterol Performed By: #### L 500.4100, L100.0500, L500.2500 ####[facility] [address] [place], [address] Cholesterol in LDL [Mass/Vol] 72 mg/dL Normal 0-130 [facility] 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: Order Comment: Comme nts: NPO at MN prior to lipid panel Performed By: #### L 500.4100, L100.0500, L500.2500 ####[facility] [address] [place], [address] Cholesterol in VLDL [Mass/Vol] 16 mg/dL Normal 5-40 [facility] Comment on above: Order Comment: Comme nts: NPO at MN prior to lipid panel Performed By: #### L 500.4100, L100.0500, L500.2500 ####[facility] [address] [place], [address] Triglyceride [Mass/Vol] 79 mg/dL Normal [facility] Comment on above: Order Comment: Comme nts: NPO at MN prior to lipid panel Result Comment: The drugs N-Acetylcysteine and Metamizole may falsely depress this assay. Serum Triglycerides Reference Interval Normal <150 mg/dL Borderline high 150 - 199 mg/dL High 200 - 499 mg/dL Very High > or = 500 mg/dL Performed By: #### L 500.4100, L100.0500, L500.2500 ####[facility] [address] [place], [address] MR/CON.PCM.NEon 10-01-2023 MR/CON.PCM.NE [facility] Medical Records Department [address] [place] [address] Consultation - Neurology 10/01/23811 MR#: [id number] Acct: [id number] Name: JUAN JOSE FOSTER Rep #: [id number] : 1935 88 From: Emmy Croft MD PCP: Dr. Dipak Aguilar, DO Status:DIS CINDI Location: [place] [address] Assessment and Plan: Stroke Assessment/Plan JUAN JOSE FOSTER is a 88 M with a history of Afib on Eliquis who presents for evaluation of expressive aphasia. Not a TNK or IR candidate Neurological examination shows nonfocal examination. Neuroimaging shows MRI Brain: Negative, CTA: Negative, LDL: 72, HbA1C: 6.2. Likely had a TIA. Plan 1. Continue Eliquis 2. Statin to keep LDL <70 3. Control of stroke risk factors 4. PT, OT, speech evaluation Thanks for consult. Spent 35 min in evaluation of this patient HPI Consult Data Date of Consult: 10/01/23 HPI Narrative HPI Narrative: JUAN JOSE FOSTER, is a 88 M with a history of Afib on eliquis who presented to [facility] ED on 09/30/2023 with expressive aphasia. He could not get the words out. he is compliant with his medications. Stroke alert was called on arrival. CT brain was unremarkable. CTA head/neck showed no large vessel occlusion or flow-limiting stenosis. He was noted to have improving expressive aphasia per ED physician later. Was evaluated by teleneurology and highest concern was for TIA. Hospitalist was then contacted for admission. Notably, patient had new chart here created in error, has previous chart under . [facility] Home Medications ???Medication ???Instructions ???Recorded ???Last Taken ???Type Lactobacillus acidophilus 10 10,000 mmu cells PO DAILY 09/30/23 09/30/23 History billion cell capsule (Probiotic) apixaban 5 mg tablet (Eliquis) 5 mg PO BID 09/30/23 09/30/23 History calcium carbonate 600 mg-vitamin 1 tab PO DAILY 09/30/23 09/30/23 History D3 10 mcg (400 unit) tablet fluticasone fur. 200 mcg-umeclid 1 ea inhalation DAILY 09/30/23 09/30/23 History 62.5 mcg-vilant 25 mcg inhalat.powder (Trelegy Ellipta) metoprolol tartrate 50 mg tablet 50 mg PO BID 09/30/23 09/30/23 History multivitamin (Daily Multi-Vitamin 1 tab PO DAILY 09/30/23 09/30/23 History tablet) omeprazole 20 mg capsule,delayed 20 mg PO DAILY 09/30/23 09/30/23 History release Allergy/AdvReac Type Severity Reaction Status Date / Time No Known Allergies Allergy Verified 09/30/23 13:12 Social History (Updated 09/30/23 @ 13:[address] Sukhdev Mark MD) household members: spouse Smoking Status: Former smoker Vital Signs Vital Signs Vital Signs: 09/30/23 12:31 09/30/23 12:35 09/30/23 12:35 Temperature 98 F Temperature Source Temporal Pulse Rate 102 H Pulse Strength Respiratory Rate 18 Respiratory Effort Respiratory Depth Respiratory Pattern Blood Pressure 169/112 H Blood Pressure Mean 131 Blood Pressure Source Blood Pressure Position Blood Pressure Location Pulse Ox 95 95 Oxygen Delivery Method Room Air Room Air 09/30/23 13:05 09/30/23 13:32 09/30/23 14:40 Temperature 97.8 F 97.4 F L Temperature Source Temporal Pulse Rate 94 91 83 Pulse Strength Respiratory Rate 19 H 18 18 Respiratory Effort Respiratory Depth Respiratory Pattern Blood Pressure 150/120 H 164/104 H 157/115 H Blood Pressure Mean 130 124 129 Blood Pressure Source Monitor Blood Pressure Position Semi-Fowlers Blood Pressure Location Right Arm Pulse Ox 95 98 96 Oxygen Delivery Method Room Air Room Air 09/30/23 18:25 09/30/23 18:33 09/30/23 22:00 Temperature 98.5 F Temperature Source Temporal Pulse Rate 72 Pulse Strength Normal (2+) Respiratory Rate 18 Respiratory Effort Normal Non-Labored Respiratory Depth Normal Respiratory Pattern Normal Blood Pressure 148/110 H Blood Pressure Mean 122 Blood Pressure Source Monitor Blood Pressure Position Semi-Fowlers Blood Pressure Location Right Arm Pulse Ox 97 Oxygen Delivery Method Room Air Room Air 09/30/23 22:00 09/30/23 22:25 09/30/23 23:15 Temperature 97.3 F L Temperature Source Temporal Pulse Rate 66 Pulse Strength Respiratory Rate 18 Respiratory Effort Normal Respiratory Depth Normal Respiratory Pattern Normal Blood Pressure 152/108 H Blood Pressure Mean 122 Blood Pressure Source Monitor Blood Pressure Position Semi-Fowlers Blood Pressure Location Right Arm Pulse Ox 94 95 Oxygen Delivery Method Room Air Room Air Room Air 10/01/23 04:25 10/01/23 07:03 Temperature 96.5 F L Temperature Source Temporal Pulse Rate 87 87 Pulse Strength Respiratory Rate 18 Respiratory Effort Respiratory Depth Respiratory Pa (more content not included)... Normal [facility] Stress Reporton 10-01-2023 Stress Report [facility] Cardiovascular Services [address] [place] [address] MR#: [id number] Acct: [id number] Name: JUAN JOSE FOSTER Rep #: [id number] : 1935 88 From: Sue Anderson MD Primary Care: Dr. Dipak Aguilar, DO Status: DIS CINDI Referring Dr: Sex: M C Stress Test Report Date: 10/01/2023 Procedure: Pharmacologic stress nuclear imaging study Indications: Chest pain Consent: Per the patient Procedure: The patient underwent pharmacologic (Regadenoson) evaluation with a peak heart rate of 103 beats per minute (77%predicted maximal heart rate) and a peak blood pressure of 164/102 mmHg. The baseline ECG demonstrated atrial fibrillation, right bundle branch block. EKG during lexiscan infusion revealed no significant ischemic changes. EKG post infusion revealed no significant ischemic changes [There were no cardiac dysrhythmias pretest, during pharmacologic infusion, or recovery]. [There was no complaint of chest discomfort during pharmacologic infusion or recovery]. The examination was discontinued secondary to completion of protocol. Impression: 1. Lexiscan stress test test is negative for Lexiscan infusion induced EKG changes of ischemia. 2. Lexiscan stress test test is negative for Lexiscan infusion induced chest pain. 3. Results of the nuclear portion of the test is as below Myocardial perfusion imaging study: Technique: The patient was injected with 13.4 millicuries of technetium 99m Cardiolite and subsequently rest SPECT Cardiolite nuclear imaging was obtained in the horizontal long, vertical long, and short axis views. The patient underwent pharmacologic [Regadenoson 0.4mg] evaluation. Please see above for details. The patient was injected with 40.5 millicuries of technetium 99m Cardiolite and subsequently stress SPECT Cardiolite nuclear imaging was obtained in the horizontal long, vertical long, and short axis views. A gated Cardiolite study at peak stress was obtained. Interpretation: Rest and stress SPECT Cardiolite nuclear imaging status post realignment, normalization, and attenuation correction demonstrate overall normal myocardial radioisotope uptake. Gated images reveal no significant regional wall motion abnormalities. The reported LVEF is greater than 70%. Impression: 1. There is no evidence of ischemia or infarction. 2. Estimated ejection fraction is greater than 70%. This note was generated with Feedbooksation software. It may contain incorrect words, spelling, and punctuation that were not noted in checking the note before signing. 10/01/23 1224 Date Sue Anderson MD CC: Zoie Quesada; Graciela Mendez; Colton Burgos; Deisy Lyons MD; Emmy Croft MD; Terell Ramsey MD; Dr. Vaibhav North DO; Dr. Calin Moncada MD; Dr. Kannan Vuong MD; Dr. Maria G Dunham MD; Dr. Mariana Cedillo MD; Dr. Neo Coburn MD; Dr. Dipak Aguilar DO; Dr. Jose Gillis MD; Dr. Lennox Machado DO; Dr. Oziel Stoner MD; Dr. Louisa Bell MD; Dr. Khai Bose MD; Dr. Danny Her MD; Dr. Varun Rodríguez MD; Dr. Sukhdev Mark MD; Dr. Lexy Scott MD; Anastasia Rollins DO; Richard Chaudhry MD Date Dictated: 10/01/231215 Date Transcribed: 10/01/231215 Supervisor Instrument Repair: NN Signed Normal [facility] 12 Lead EKGon 09-30-2023 12 Lead EKG [facility] Cardiovascular Services [address] [place] [address] 12 Lead EKG 09/30/23 1314 MR#: [id number] Acct: [id number] Name: JUAN JOSE FOSTER Rep #: [id number] : 1935 88 From: Sue Anderson MD Attending Dr: Dr. Khai Bose MD Status: DIS CINDI Ordering Dr: Sukhdev Mark MD Date: 09/30/23 Location: [facility] Sex: M C Admitted: 09/30/23 Test Reason : POSS STROKE Blood Pressure : / mmHG Vent. Rate : 077 BPM Atrial Rate : 000 BPM P-R Int : 000 ms QRS Dur : 146 ms QT Int : 404 ms P-R-T Axes : 000 059 -13 degrees QTc Int : 457 ms Atrial fibrillation Right bundle branch block Possible Inferior infarct , age undetermined Abnormal ECG Confirmed by MICHEL GALDAMEZ, ARTURO ([id number]), commissioning editor MIGUEL STRAUSS ([id number]) on 10/03/2023 9:30:12 AM Referred By: Confirmed By:SOHA ANDERSON MD 10/03/23929 Date Sue Anderosn MD CC: Dr. Dipak Aguilar DO; Dr. Khai Bose MD; Dr. Sukhdev Mark MD Signed Normal [facility] Basic Metabolic Profile (BMP )on 09-30-2023 BUN/CRE 15.2 RATIO Normal 10-20 [facility] Comment on above: Order Comment: 'TROP ' Serial specimen #1, #2 or #3: 1 Performed By: #### L 100.0100, L300.3900, L500.2500, L501.4020, L300.4310 ####[facility] [address] [place], [address] CA,Total 10.3 mg/dL High 8.5-10.1 [facility] Comment on above: Order Comment: 'TROP ' Serial specimen #1, #2 or #3: 1 Performed By: #### L 100.0100, L300.3900, L500.2500, L501.4020, L300.4310 ####[facility] [address] [place], [address] Chloride [Moles/Vol] 105 mmol/L Normal 98-107 [facility] Comment on above: Order Comment: 'TROP ' Serial specimen #1, #2 or #3: 1 Performed By: #### L 100.0100, L300.3900, L500.2500, L501.4020, L300.4310 ####[facility] [address] [place], [address] CO2 [Moles/Vol] 31.0 mmol/L Normal 21.0-32.0 [facility] Comment on above: Order Comment: 'TROP ' Serial specimen #1, #2 or #3: 1 Performed By: #### L 100.0100, L300.3900, L500.2500, L501.4020, L300.4310 ####[facility] [address] [place], [address] Creatinine [Mass/Vol] 1.64 mg/dL High 0.70-1.30 [facility] Comment on above: Order Comment: 'TROP ' Serial specimen #1, #2 or #3: 1 Result Comment: The validity of the calculated GFR GFRAA in patients over 70 years has not been determined. Clinical correlation is essential. Performed By: #### L 100.0100, L300.3900, L500.2500, L501.4020, L300.4310 ####[facility] [address] [place], [address] ECRCL 37.63 ml/min Normal [facility] Comment on above: Order Comment: 'TROP ' Serial specimen #1, #2 or #3: 1 Performed By: #### L 100.0100, L300.3900, L500.2500, L501.4020, L300.4310 ####[facility] [address] [place], [address] EST GFR - AA 53 mL/min Low >60 [facility] Comment on above: Order Comment: 'TROP ' Serial specimen #1, #2 or #3: 1 Result Comment: Afri can Romanian GFR Calc Performed By: #### L 100.0100, L300.3900, L500.2500, L501.4020, L300.4310 ####[facility] [address] [place], [address] GAP 4 Low 5-15 [facility] Comment on above: Order Comment: 'TROP ' Serial specimen #1, #2 or #3: 1 Performed By: #### L 100.0100, L300.3900, L500.2500, L501.4020, L300.4310 ####[facility] [address] [place], [place], [phone] GFR/1.73 sq M.predicted among non-blacks MDRD (S/P/Bld) [Vol rate/Area] 44 mL/min/{1.73_m2} Low >60 [facility] Comment on above: Order Comment: 'TROP ' Serial specimen #1, #2 or #3: 1 Result Comment: Non- GFR Calc Performed By: #### L 100.0100, L300.3900, L500.2500, L501.4020, L300.4310 ####[facility] [address] [place], [place], [phone] Glucose [Mass/Vol] 148 mg/dL High 74-106 [facility] Comment on above: Order Comment: 'TROP ' Serial specimen #1, #2 or #3: 1 Result Comment: Fast ing Glucose result greater than or equal to 126 mg/dL suggests DIABETES MELLITUS per A.D.A. criteria. Performed By: #### L 100.0100, L300.3900, L500.2500, L501.4020, L300.4310 ####[facility] [address] [place], [place], [phone] Potassium [Moles/Vol] 4.2 mmol/L Normal 3.5-5.1 [facility] Comment on above: Order Comment: 'TROP ' Serial specimen #1, #2 or #3: 1 Performed By: #### L 100.0100, L300.3900, L500.2500, L501.4020, L300.4310 ####[facility] [address] [place], [address] Sodium [Moles/Vol] 140 mmol/L Normal 136-145 [facility] Comment on above: Order Comment: 'TROP ' Serial specimen #1, #2 or #3: 1 Performed By: #### L 100.0100, L300.3900, L500.2500, L501.4020, L300.4310 ####[facility] [address] [place], [address] Urea nitrogen [Mass/Vol] 25 mg/dL High 7-18 [facility] Comment on above: Order Comment: 'TROP ' Serial specimen #1, #2 or #3: 1 Performed By: #### L 100.0100, L300.3900, L500.2500, L501.4020, L300.4310 ####[facility] [address] [place], [address] Brain without Contraston Brain without Contrast [facility] Imaging Services [address] [place] [address] Brain without Contrast MR#: [id number] Acct: [id number] Name: JUAN JOSE FOSTER Rep #: [id number] : 1935 M 88 From: Cecil Nelson PCP: Dr. Dipak Aguilar DO Status: DIS CINDI Study: Brain without Contrast Date of Exam: 09/30/23 Exam# [id number] Ordering Dr: Vaibhav North DO [id number] STUDY: MRI BRAIN WITHOUT CONTRAST REASON FOR EXAM: Male, 88 years old. CVA r/o TECHNIQUE: Standardized multiplanar fat and water weighted pulse sequences were obtained. COMPARISON: None. FINDINGS: There is moderate cerebral atrophy with widening of the extra-axial spaces and ventricular dilatation. There are multiple white matter hyperintensities, distributed throughout the deep white matter tracts of the cerebral hemispheres, consistent with moderate chronic white matter ischemic changes. There is no evidence for recent intracranial ischemia or other cause of cytotoxic edema on diffusion weighted imaging (DWI). Normal bilateral basal ganglia. Normal thalami. There is no extra-axial fluid accumulation. Normal flow voids within the major intracranial circulation suggesting patency by spin echo criteria. Normal sella turcica, pituitary gland, infundibular stalk, optic chiasm and hypothalamus. Normal tectal plate and pineal gland. Normal midbrain, camryn and medulla. Normal cerebellum. Normal basal cisterns. Normal bilateral temporal bones. Normal bilateral internal auditory canals. No demonstrated orbital abnormality, within the constraints of a routine brain study. Normal visualized paranasal sinuses. Normal calvarium and skull base. Normal visualized soft tissue structures. Normal visualized upper cervical spine. MRI/Brain without Contrast IMPRESSION: Involutional changes of the brain, as described above. Electronically Signed: Cecil Faye MD at 16:15 EDT Reading Location ID and State: [address] [place] [address] Tel , Service support , CC: Dr. Vaibhav North, DO; Dr. Dipak Aguilar, DO Supervisor Instrument Repair: Signed Normal [facility] CBC W/Diff, Automatedon 08-0 Absolute Lymph 1.55 X10 3/uL Normal 0.83-4.51 [facility] Comment on above: Performed By: #### L 100.0100, L300.3900, L500.2500, L501.4020, L300.4310 #### [facility] [address] [place], [place], [id number] Absolute Neut 7.7 X10 3/uL Normal 2.0-7.7 [facility] Comment on above: Performed By: #### L 100.0100, L300.3900, L500.2500, L501.4020, L300.4310 #### [facility] [address] [place], [address] Basophils/100 WBC (Bld) 0.8 % Normal 0-1 [facility] Comment on above: Performed By: #### L 100.0100, L300.3900, L500.2500, L501.4020, L300.4310 #### [facility] [address] [place], [address] Eosinophils/100 WBC (Bld) 2.3 % Normal 0-5 [facility] Comment on above: Performed By: #### L 100.0100, L300.3900, L500.2500, L501.4020, L300.4310 #### [facility] [address] [place], [address] Erythrocyte distribution width (RBC) [Ratio] 14.7 % High 11.6-14.6 [facility] Comment on above: Performed By: #### L 100.0100, L300.3900, L500.2500, L501.4020, L300.4310 #### [facility] [address] [place], [address] Hematocrit (Bld) [Volume fraction] 50.2 % Normal 40-54 [facility] Comment on above: Performed By: #### L 100.0100, L300.3900, L500.2500, L501.4020, L300.4310 #### [facility] [address] [place], [address] Hemoglobin (Bld) [Mass/Vol] 16.4 g/dL Normal 13.0-16.5 [facility] Comment on above: Performed By: #### L 100.0100, L300.3900, L500.2500, L501.4020, L300.4310 #### [facility] [address] [place], [address] IG% 1.000 High 0.0-0.9 [facility] Comment on above: Result Comment: IG% - Immature Granulocytes (promyelocytes, myelocytes and metamyelocytes) > 1% indicates that a LEFT SHIFT is Present. Performed By: #### L 100.0100, L300.3900, L500.2500, L501.4020, L300.4310 #### [facility] [address] [place], [address] Lymphocytes/100 WBC (Bld) 14.6 % Low 19-41 [facility] Comment on above: Performed By: #### L 100.0100, L300.3900, L500.2500, L501.4020, L300.4310 #### [facility] [address] [place], [address] MCH (RBC) [Entitic mass] 29.1 pg Normal 27.0-32.0 [facility] Comment on above: Performed By: #### L 100.0100, L300.3900, L500.2500, L501.4020, L300.4310 #### [facility] [address] [place], [address] MCHC (RBC) [Mass/Vol] 32.7 g/dL Normal 32-36 [facility] Comment on above: Performed By: #### L 100.0100, L300.3900, L500.2500, L501.4020, L300.4310 #### [facility] [address] [place], [address] MCV (RBC) [Entitic vol] 89.0 fL Normal 80-94 [facility] Comment on above: Performed By: #### L 100.0100, L300.3900, L500.2500, L501.4020, L300.4310 #### [facility] [address] [place], [address] Monocytes/100 WBC (Bld) 8.8 % Normal 0-10 [facility] Comment on above: Performed By: #### L 100.0100, L300.3900, L500.2500, L501.4020, L300.4310 #### [facility] [address] [place], [address] Neutrophils/100 WBC (Bld) 72.5 % High 47-70 [facility] Comment on above: Performed By: #### L 100.0100, L300.3900, L500.2500, L501.4020, L300.4310 #### [facility] [address] [place], [address] Nucleated RBC (Bld) [#/Vol] 0 10*3/uL Normal 0-5 [facility] Comment on above: Performed By: #### L 100.0100, L300.3900, L500.2500, L501.4020, L300.4310 #### [facility] [address] [place], [address] Platelet mean volume (Bld) [Entitic vol] 10.0 fL Normal 6.2-12.0 [facility] Comment on above: Performed By: #### L 100.0100, L300.3900, L500.2500, L501.4020, L300.4310 #### [facility] [address] [place], [address] Platelets (Bld) [#/Vol] 198 10*3/uL Normal 150-450 [facility] Comment on above: Performed By: #### L 100.0100, L300.3900, L500.2500, L501.4020, L300.4310 #### [facility] [address] [place], [address] RBC (Bld) [#/Vol] 5.64 10*6/uL Normal 4.6-6.2 [facility] Comment on above: Performed By: #### L 100.0100, L300.3900, L500.2500, L501.4020, L300.4310 #### [facility] [address] [place], [address] RDW SD 47.5 fl High 35.1-43.9 [facility] Comment on above: Performed By: #### L 100.0100, L300.3900, L500.2500, L501.4020, L300.4310 #### [facility] [address] [place], [address] WBC (Bld) [#/Vol] 10.6 10*3/uL Normal 4.4-11.0 [facility] Comment on above: Performed By: #### L 100.0100, L300.3900, L500.2500, L501.4020, L300.4310 #### [facility] [address] [place], [address] Chest 1 Viewon 09-30-2023 Chest 1 View [facility] Imaging Services [address] [place] [address] Chest 1 View MR#: [id number] Acct: [id number] Name: JUAN JOSE FOSTER Rep #: [id number] : 1935 M 88 From: Ricardo toribio MD PCP: Dr. Dipak Aguilar, DO Status: DIS CINDI Study: Chest 1 View Date of Exam: 09/30/23 Exam# [id number] Ordering Dr: Sukhdev Mark MD [id number] INDICATION: Neuro deficit, acute, stroke suspected EXAMINATION/TECHNIQUE: X-RAY - XR Chest 1 View COMPARISON: No relevant prior comparison study available FINDINGS: LINES/DEVICES: Cardiac leads overlie the chest. LUNGS: The lungs are well expanded. Right midlung opacity peripherally. Linear left basilar atelectasis. No pleural effusion or pneumothorax. MEDIASTINUM AND CARDIOVASCULAR STRUCTURES: Cardiac silhouette not enlarged. Central airways and mediastinal contour are unremarkable. BONES AND SOFT TISSUES: No acute abnormality. RAD/Chest 1 View IMPRESSION: Linear left basilar atelectasis. Peripheral right mid lung opacity is nonspecific. This could be atelectatic or infectious/inflammatory. Electronically Signed: Ricardo Jackson MD at 13:52 EDT , CC: Dr. Dipak Aguilar DO; Dr. Sukhdev Mark MD Supervisor Instrument Repair: Signed Normal [facility] Echo Complete W/ Contraston 09-30-2023 Echo Complete W/ Contrast [facility] [address] [place] [address] Echo Complete W/ Contrast 10/01/23 0856 MR#: [id number] Acct: [id number] Name: JUAN JOSE FOSTER Rep #: [id number] : 1935 88 From: Sue Anderson MD Attending Dr: Dr. Khai Bose MD Status: DIS CINDI Ordering Dr: Vaibhav North DO Date: 09/30/23 Location: U Sex: M C Admitted: 09/30/23 Reason For Study: TIA/STROKE Procedure This was a 2D Doppler, Color Flow transthoracic echocardiogram. The study was technically limited. Contrast injection was performed. Exam performed in department. Left Ventricle Normal LV size. The estimated ejection fraction is 70 %. Unable to assess diastolic dysfunction. No regional wall motion abnormalities noted. Right Ventricle Normal RV size. Normal systolic function. Atria The left atrium is mildly enlarged. Mitral Valve There is no mitral valve stenosis. Trivial mitral valve insufficiency. Tricuspid Valve There is no tricuspid stenosis. Trivial tricuspid valve insufficiency. Pulmonary artery systolic pressure is 40-45 mmHg. Aortic Valve Trisinus/trileaflet aortic valve. There is no aortic stenosis. No aortic valve insufficiency. Pulmonic Valve There is no pulmonic valvular stenosis. Trivial pulmonic valve insufficiency. Great Vessels Normal aortic root. Pericardium/Pleural No pericardial effusion. Medication Diluted definity 1ml given slow IV push to enhance endocardial definition. Performed a rapid injection of agitated mix of 9 cc saline and 1cc air to assess for atrial septal defect. MMode/2D Measurements Calculations LVIDd: 4.7 cm IVSd: 1.5 cm Ao root diam: 3.7 cm LVIDs: 2.6 cm LVPWd: 1.3 cm FS: 43.9 % LAV(MOD-bp): 65.0 ml LVAd ap4: 24.1 cm2 SV(MOD-sp4): 53.3 ml LAV(MOD-bp) Indexed: 29.9 ml/m2 LVLd ap4: 6.9 cm LAV(MOD-sp2): 64.9 ml EDV(MOD-sp4): 67.5 ml LAV(MOD-sp4): 60.2 ml EDV(sp4-el): 71.3 ml LVAs ap4: 8.9 cm2 LVLs ap4: 5.1 cm ESV(MOD-sp4): 14.2 ml ESV(sp4-el): 13.2 ml EF(MOD-sp4): 79.0 % EF(sp4-el): 81.5 % SV(sp4-el): 58.1 ml LA A4 area: 21.8 cm2 LA dimension(2D): 4.7 cm RA A4 area: 18.0 cm2 Doppler Measurements Calculations MV E max swapna: 75.8 cm/sec Ao V2 max: 96.7 cm/sec LV V1 max: 92.3 cm/sec Ao max P.8 mmHg LV V1 max P.4 mmHg Ao V2 mean: 63.0 cm/sec LV V1 mean P.8 mmHg Ao mean P.8 mmHg LV V1 mean: 60.3 cm/sec Ao V2 VTI: 17.5 cm LV V1 VTI: 16.5 cm AV (velocity ratio): 0.94 PA V2 max: 90.2 cm/sec TR max swapna: 292.4 cm/sec PA V2 mean: 65.3 cm/sec TR max P.2 mmHg ECHO/Echo Complete W/ Contrast Interpretation Summary The estimated ejection fraction is 70 %. Unable to assess diastolic dysfunction. The left atrium is mildly enlarged. Trivial mitral valve insufficiency. Ordering Physician: Vaibhav North Referring Physician: DIPAK AGUILAR Performed By: Katy Bush RCS 10/01/23 1316 Date Sue Anderson MD CC: Dr. Vaibhav North DO; Dr. Dipak Aguilar DO; Dr. Khai Bose MD Date Dictated: 10/01/2356 Date Transcribed: 10/01/23 1316 Supervisor Instrument Repair: Signed Normal [facility] Emergency Department Summary on 09-30-2023 Emergency Department Summary [facility] Medical Records Department [address] [place] [address] Emergency Department Summary 09/30/23 MR#: [id number] Acct: [id number] Name: JUAN JOSE FOSTER Rep #: [id number] : 1935 88 From: Sukhdev Mark MD PCP: Dr. Dipak Aguilar DO Status:DIS CINDI Location: [place] [address] HPI History of Present Illness Chief Complaint: Stroke Alert Detail of Chief Complaint: Problem expressing self and identifying objects Informant: patient Onset/Context/Timing Onset: Today (1215) Context: Sudden Onset Timing: Intermittent (When I examined patient in the radiology suite, CT table his symptoms had resolved) Quality and Location: Positive for Expressive Aphasia Current Severity: Gone Maximum Severity: Moderate Worsened by: Nothing Relieved by: Not applicable Associated Symptoms Associated Symptoms: Negative for Headache, Nausea, Vomiting or Chest Pain Narrative Narrative: Patient is a 88-year-old male with history of hypertension, chronic A-fib on Eliquis, who presents with difficulty expressing himself. This started at 1215. Patient denies headache, visual, ocular auditory symptoms. Patient denies cardiac or respiratory symptoms. Patient denies paresthesia, anesthesia or weakness of his upper or lower extremities. Patient denies problems with coordination or balance. Prior similar symptoms: No Recent Illness/Hospitalization: No PFSH PFSH Allergy/AdvReac Type Severity Reaction Status Date / Time No Known Allergies Allergy Verified 09/30/23 13:12 Social History (Updated 09/30/23 @ 13:[address] Sukhdev Mark MD) household members: spouse Smoking Status: Never smoker ROS ROS ED Constitutional Constitutional ED: Denies chills, fever(s), subjective or sweats Eyes Eyes: Denies blurry vision or change in vision ENT ENT ED: Denies ear pain, rhinorrhea or sore throat Cardiovascular Cardiovascular: Denies chest pain, palpitations or racing heartbeat Respiratory/Chest Respiratory/Chest: Denies cough, dyspnea or dyspnea on exertion Gastrointestinal Gastrointestinal: Denies abdominal pain, nausea or vomiting Genitourinary Genitourinary ED: Denies dysuria, hematuria or urinary frequency Musculoskeletal Musculoskeletal: Denies back pain or neck pain Integumentary Denies rash Neurologic Neurologic: Denies headache(s), paresthesias or weakness Hematologic/Lymphatic Hematologic/Lymphatic: Denies easy bleeding or easy bruising EXAM Physical Exam Const Vital Signs: 09/30/23 12:31 09/30/23 12:35 09/30/23 12:35 Temperature 98 F Temperature Source Temporal Pulse Rate 102 H Respiratory Rate 18 Blood Pressure 169/112 H Blood Pressure Mean 131 Pulse Ox 95 95 Oxygen Delivery Method Room Air Room Air 09/30/23 13:05 Temperature Temperature Source Pulse Rate 94 Respiratory Rate 19 H Blood Pressure 150/120 H Blood Pressure Mean 130 Pulse Ox 95 Oxygen Delivery Method Room Air Positive well nourished and well developed General Appearance ED: well developed and NAD HEENT Reports moist mucous membranes atraumatic Eyes PERRL and EOMs intact bilaterally General Eye ED: Negative for pale conjunctiva or scleral icterus Neck no lymphadenopathy, supple and no JVD Chest Wall inspection of chest normal and palpation of chest normal Resp normal respiratory effort and clear to auscultation bilaterally Cardio no murmurs Rate: regular rate Rhythm: abnormal rhythm irregularly irregular GI normal to inspection, nondistended, normoactive bowel sounds, soft to palpation, non-tender, non- distended and no masses Back/Spine no CVA tenderness Extremity Negative for normal to inspection Extremity Narrative: Patient has scar on her right lower extremity due to prior injury. Neuro oriented x3, CN's II-XII intact bilaterally and no sensory deficits noted [place] Coma Scale: document GCS findings Spontaneous Obeys Commands Oriented 15 Sensorium / Orientation: alert Motor Exam: strength 5/5 throughout Psych mental status grossly normal Skin no wounds General Skin Exam: Negative for jaundice Lesions: no lesions Rashes: no rashes NIHSS NIHSS Initial: 1a Level of Consciousness: 0 1b LOC Questions (Score 2 if aphasic/stupor): 0 1c LOC Commands (Only score 1st attempt): 0 2 Best Gaze (If aphasic, use reflexive mvmts.): 0 3 Visual: 0 4 Facial Palsy: 0 5 Motor Arm Right (UN = amputation/fusion): 0 5 Motor Arm Left: 0 6 Motor Leg Right: 0 6 Motor Leg Left: 0 7 Limb ataxia (Only + if out of proportion): 0 8 Sensory (Aphasia/stupor=0 or 1, coma=2): 0 9 Best Language: 0 10 Dysarthria (mute, coma=2, intubated=UN): 0 11 Extinction and Inattention (only scored if +): 0 Total Score: 0 MDM MDM MDM Narrative Medical decision making narrative: Differential (more content not included)... Normal [facility] H AND P Exam - Hospitaliston 09-30-2023 H&P Exam - Hospitalist [facility] Medical Records Department [address] [place] [address] H P Exam - Hospitalist 09/30/23 1321 MR#: [id number] Acct: [id number] Name: JUAN JOSE FOSTER Rep #: [id number] : 1935 88 From: Vaibhav North DO PCP: Dr. Dipak Aguilar, DO Status:DIS CINDI Location: [place] [address] HPI - General General Date of Admission: 09/30/23 Date of Service: 09/30/23 Chief Complaint: Strokelike symptoms with expressive aphasia, worsening shortness of breath with exertion HPI Narrative JUAN JOSE FOSTER, is a 88 M who presented to [facility] ED on 09/30/2023 with expressive aphasia. Stroke alert was called on arrival. CT brain was unremarkable. CTA head/neck showed no large vessel occlusion or flow-limiting stenosis. Was noted to have improving expressive aphasia per ED physician after scans. Teleneurology saw the patient and highest concern was for TIA, recommended admission for further workup. Hospitalist was then contacted for admission. Notably, patient had new chart here created in error, has previous chart under . I saw the patient at bedside in the ED, and daughter present. Patient was sitting up fairly comfortably in bed, conversing normally, in no acute distress. He did not have any expressive aphasia during our encounter. Patient and family note that he has never had an episode like this before. Denies any numbness/tingling or weakness in his extremities with this episode. Denies any vision changes. Patient and note that they live 6 months of the year in [place] and 6 months here. Patient reports worsening shortness of breath with exertion over the past 6 months or so. He follows with a oil field worker in [place] and a people greeter here with the [facility]. Has history of A-fib with RVR and is on Eliquis for this. Is on rate control with Lopressor 50 mg twice daily and denies any palpitations. Per family, recently saw the people greeter and stress test was recommended, and this is scheduled in about 1 week. Patient and family note that PFTs done with oil field worker showed that he has some degree of COPD due to remote history of smoking and possible prior workplace exposures. He was prescribed a long-acting Trelegy inhaler and albuterol inhaler as needed. Patient noted he has not used the Trelegy inhaler in many months and he did not like using the albuterol inhaler so he does not use this either. Patient denies any chest pain with exertion. He currently denies any chest pain or shortness of breath. Denies any lower extremity swelling. No other acute concerns at this time. [facility] Home Medications ???Medication ???Instructions ???Recorded ???Last Taken ???Type Lactobacillus acidophilus 10 10,000 mmu cells PO DAILY 09/30/23 09/30/23 History billion cell capsule (Probiotic) apixaban 5 mg tablet (Eliquis) 5 mg PO BID 09/30/23 09/30/23 History calcium carbonate 600 mg-vitamin 1 tab PO DAILY 09/30/23 09/30/23 History D3 10 mcg (400 unit) tablet fluticasone fur. 200 mcg-umeclid 1 ea inhalation DAILY 09/30/23 09/30/23 History 62.5 mcg-vilant 25 mcg inhalat.powder (Trelegy Ellipta) metoprolol tartrate 50 mg tablet 50 mg PO BID 09/30/23 09/30/23 History multivitamin (Daily Multi-Vitamin 1 tab PO DAILY 09/30/23 09/30/23 History tablet) omeprazole 20 mg capsule,delayed 20 mg PO DAILY 09/30/23 09/30/23 History release Allergy/AdvReac Type Severity Reaction Status Date / Time No Known Allergies Allergy Verified 09/30/23 13:12 Social History (Updated 09/30/23 @ 13:[address] Sukhdev Mark MD) household members: spouse Smoking Status: Former smoker ROS Constitutional Constitutional: Denies chills, fatigue, fever(s) or weakness Eyes Eyes: Denies change in vision Cardiovascular Cardiovascular: Reports dyspnea on exertion; Denies chest pain, edema, lightheadedness, palpitations or rapid heart rate Respiratory/Chest Respiratory/Chest: Denies cough, shortness of breath at rest or wheezing Gastrointestinal Gastrointestinal: Denies abdominal pain Genitourinary Genitourinary: Denies dysuria Musculoskeletal Musculoskeletal: Denies arthralgias or myalgias Neurologic Neurologic: Denies dizziness, focal weakness or headache(s) Vital Signs Vital Signs Vital Signs: 09/30/23 12:31 09/30/23 12:35 09/30/23 12:35 Temperature 98 F Temperature Source Temporal Pulse Rate 102 H Respiratory Rate 18 Blood Pressure 169/112 H Blood Pressure Mean 131 Pulse Ox 95 95 Oxygen Delivery Method Room Air Room Air 09/30/23 13:05 Temperature Temperature Source Pulse Rate 94 Respiratory Rate 19 H Blood Pressure 150/120 H Blood Pressure Mean 130 Pulse Ox 95 Oxygen Delivery Method Room Air Weight Weight: 93.2 kg Body Mass Index (BMI) 27.8 (more content not included)... Normal [facility] Hemoglobin A1con 09-30-2023 HbA1c (Bld) [Mass fraction] 6.2 % High 3.8-5.6 [facility] Comment on above: Result Comment: Norm al < 5.7 % Prediabetic 5.7 - 6.4 % Diabetic >or= 6.5 % Please note range changes. Performed By: #### L 501.9520, L501.9985 ####[facility] [id number] [place], [address] L501.4020on 09-30-2023 TROPONIN-I HS 20 pg/mL Normal 3.0-78.0 [facility] Comment on above: Order Comment: 'TROP ' Serial specimen #1, #2 or #3: 1 Result Comment: Pleblayne allen Note: New Test Units and Gender Specific Reference Ranges. For more information see Policy Stat Procedure [place] High Sensitivity Troponin (TNIH) and attachments. Performed By: #### L 100.0100, L300.3900, L500.2500, L501.4020, L300.4310 ####[facility] [id number], [address] Partial Thromboplast Timeon 09-30-2023 aPTT Coag (Bld) [Time] 48.4 s High 24.1-36.2 [facility] Comment on above: Performed By: #### L 100.0100, L300.3900, L500.2500, L501.4020, L300.4310 ####[facility] [id number] [place], [address] Prothrombin Time w/INRon INR Coag (PPP) [Relative time] 1.7 {INR} Normal [facility] Comment on above: Performed By: #### L 100.0100, L300.3900, L500.2500, L501.4020, L300.4310 #### [facility] [address] [place], [address] PT Coag (PPP) [Time] 19.5 s High 11.7-14.9 [facility] Comment on above: Performed By: #### L 100.0100, L300.3900, L500.2500, L501.4020, L300.4310 #### [facility] [address] [place], [address] STROKE Brain/Head without Co nton 09-30-2023 STROKE Brain/Head without Cont [facility] Imaging Services [address] [place] [address] STROKE Brain/Head without Cont MR#: [id number] Acct: [id number] Name: JUAN JOSE FOSTER Rep #: [id number] : 1935 M 88 From: Akira Robison MD PCP: Dr. Dipak Aguilar, DO Status: DIS CINDI Study: STROKE Brain/Head without Cont Date of Exam: 0 09/30/23 Exam# [id number] Ordering Dr: Sukhdev Mark MD ADDENDUM by Dr. Akira Robison MD on 09/30/23 at 1247 [id number] EXAM: CT HEAD WITHOUT INTRAVENOUS CONTRAST CLINICAL INDICATION: Neuro deficit, acute, stroke suspected TECHNIQUE: Multiple axial images were obtained of the head without intravenous contrast. This CT exam was performed using one or more of the following dose reduction techniques: automated exposure control, adjustment of the mA and/or kV according to patient size, and/or use of iterative reconstruction technique. RADIATION DOSE: CTDIvol = 47.06 mGy, DLP = 943.26 mGy-cm COMPARISON: No relevant prior studies available. FINDINGS: BRAIN AND EXTRA-AXIAL SPACES: Hypodensities in the white matter of both cerebral hemispheres are chronic white matter ischemic changes. Moderate cerebral atrophy, central and cortical. This accounts for the disproportionate dilatation of the third and lateral ventricles. Normal cerebral aqueduct. Normal fourth ventricle. No intra- or extra-axial hemorrhage. No intracranial mass or mass effect. Posterior fossa structures are unremarkable. No hydrocephalus. Basal cisterns are patent. BONES/JOINTS: See above. SINUSES: Unremarkable as visualized. Clear. MASTOID AIR CELLS: Unremarkable. Clear. ORBITS: Visualized globes, extraocular muscles, optic nerves and retrobulbar fat appear unremarkable. 09/30/23 1247 Date cc: Dr. Dipak Aguilar DO; Dr. Sukhdev Mark MD * Signed ADDENDUM by Dr. Akira Robison MD on 09/30/[address]/STROKE Brain/Head without Cont IMPRESSION: 1. No CT evidence of intracranial bleeding, acute ischemic infarct or acute intracranial abnormality at this time. 2. Total ASPECTS score: 10/10. 3. Chronic white matter ischemic changes in both cerebral hemispheres. N.B. : The above Results were Read Back by Akira Robison MD to Sukhdev Mark MD, and understanding confirmed on 09/30/2023 12:48:50 (ET). Electronically Signed: Akira Robison MD at 12:47 EDT , 09/30/23 1255 Date cc: Dr. Dipak Aguilar DO; Dr. Sukhdev Mark MD * Signed We are attempting to reach an attending provider to discuss findings. An addendum with communication details will be sent when the communication is complete. [id number] EXAM: CT HEAD WITHOUT INTRAVENOUS CONTRAST CLINICAL INDICATION: Neuro deficit, acute, stroke suspected TECHNIQUE: Multiple axial images were obtained of the head without intravenous contrast. This CT exam was performed using one or more of the following dose reduction techniques: automated exposure control, adjustment of the mA and/or kV according to patient size, and/or use of iterative reconstruction technique. RADIATION DOSE: CTDIvol = 47.06 mGy, DLP = 943.26 mGy-cm COMPARISON: No relevant prior studies available. FINDINGS: BRAIN AND EXTRA-AXIAL SPACES: Hypodensities in the white matter of both cerebral hemispheres are chronic white matter ischemic changes. Moderate cerebral atrophy, central and cortical. This accounts for the disproportionate dilatation of the third and lateral ventricles. Normal cerebral aqueduct. Normal fourth ventricle. No intra- or extra-axial hemorrhage. No intracranial mass or mass effect. Posterior fossa structures are unremarkable. No hydrocephalus. Basal cisterns are patent. BONES/JOINTS: See above. SINUSES: Unremarkable as visualized. Clear. MASTOID AIR CELLS: Unremarkable. Clear. ORBITS: Visualized globes, extraocular muscles, optic nerves and retrobulbar fat appear unremarkable. CT/STROKE Brain/Head without Cont IMPRESSION: 1. No CT evidence of intracranial bleeding, acute ischemic infarct or acute intracranial abnormality at this time. 2. Total ASPECTS score: 10/10. 3. Chronic white matter ischemic changes in both cerebral hemispheres. Electronically Signed: Akira Robison MD at 12:47 EDT , CC: Dr. Dipak Aguilar DO; Dr. Sukhdev Mark MD Supervisor Instrument Repair: Signed Normal [facility] STROKE CTA Head AND Neck W/C onon 09-30-2023 STROKE CTA Head AND Neck W/Con [facility] Imaging Services [address] [place] [address] STROKE CTA Head AND Neck W/Con MR#: [id number] Acct: [id number] Name: JUAN JOSE FOSTER Rep #: [id number] : 1935 M 88 From: Ricardo toribio MD PCP: Dr. Dipak Aguilar DO Status: DIS CINDI Study: STROKE CTA Head AND Neck W/Con Date of Exam: 0 09/30/23 Exam# [id number] Ordering Dr: Sukhdev Mark MD ADDENDUM by Dr. Ricardo Jackson MD on 09/30/23 at 1318 [id number] INDICATION: neuro deficit EXAMINATION: CTA HEAD AND CTA NECK TECHNIQUE: Noncontrast axial images were obtained of the brain previously. Subsequently, routine carotid CT angiogram protocol was performed without and with IV contrast. In addition, images were obtained of the [place]. NASCET criteria using the distal ICAs for comparison were used for evaluation of stenoses. 3D reconstructions were reviewed. The protocol utilizes one or more of the following dose reduction techniques: automated exposure control, adjustment of mA and/or kV according to patient size,and/or use of iterative reconstruction technique. IV Contrast dosage and agent: 75 mL of Isovue-370 COMPARISON: No relevant prior comparison study available FINDINGS: --CTA NECK: AORTIC ARCH AND BRANCHES: Normal anatomy, patent. RIGHT CCA: No occlusion, significant stenosis or dissection. RIGHT ICA: No occlusion, significant stenosis or dissection. Mild atherosclerotic calcification at the origin without flow-limiting stenosis. LEFT CCA: No occlusion, significant stenosis or dissection. LEFT ICA: No occlusion, significant stenosis or dissection. RIGHT VERTEBRAL ARTERY: No occlusion, significant stenosis or dissection. LEFT VERTEBRAL ARTERY: No occlusion, significant stenosis or dissection. NECK SOFT TISSUES: Left thyroid lobe hypoattenuating nodule measures 1.3 cm. No specific follow-up recommended. Mildly prominent mediastinal lymph nodes without pathologic enlargement.. OSSEOUS STRUCTURES: Multilevel degenerative change of the cervical spine. --CTA HEAD: --Anterior circulation: ICAs: No significant stenosis at the intracranial/visualized segments. ACAs: No significant stenosis at the visualized segments. ACOM: Present. MCAs: No significant stenosis at the visualized segments. --Posterior circulation: PCOMs: Patent, diminutive on the right. package liner: No significant stenosis at the visualized segments. BASILAR ARTERY: No significant stenosis. VERTEBRAL ARTERIES: No significant stenosis at the intradural/visualized segments. No evidence of intracranial aneurysm or vascular malformation. 09/30/23 1318 Date cc: Dr. Dipak Aguilar DO; Dr. Sukhdev Mark MD * Signed ADDENDUM by Dr. Ricardo Jackson MD on 09/30/[address]/STROKE CTA Head AND Neck W/Con IMPRESSION: No large vessel occlusion or flow-limiting stenosis. N.B. : The above Results were Read Back by Ricardo Jackson MD to Sukhdev Mark MD, and understanding confirmed on 09/30/2023 13:20:25 (ET). Electronically Signed: Ricardo Jackson MD at 13:18 EDT , 09/30/23 1327 Date cc: Dr. Dipak Aguilar DO; Dr. Sukhdev Mark MD * Signed We are attempting to reach an attending provider to discuss findings. An addendum with communication details will be sent when the communication is complete. [id number] INDICATION: neuro deficit EXAMINATION: CTA HEAD AND CTA NECK TECHNIQUE: Noncontrast axial images were obtained of the brain previously. Subsequently, routine carotid CT angiogram protocol was performed without and with IV contrast. In addition, images were obtained of the [place]. NASCET criteria using the distal ICAs for comparison were used for evaluation of stenoses. 3D reconstructions were reviewed. The protocol utilizes one or more of the following dose reduction techniques: automated exposure control, adjustment of mA and/or kV according to patient size,and/or use of iterative reconstruction technique. IV Contrast dosage and agent: 75 mL of Isovue-370 COMPARISON: No relevant prior comparison study available FINDINGS: --CTA NECK: AORTIC ARCH AND BRANCHES: Normal anatomy, patent. RIGHT CCA: No occlusion, significant stenosis or dissection. RIGHT ICA: No occlusion, significant stenosis or dissection. Mild atherosclerotic calcification at the origin without flow-limiting stenosis. LEFT CCA: No occlusion, significant stenosis or dissection. LEFT ICA: No occlusion, significant stenosis or dissection. RIGHT VERTEBRAL ARTERY: No occlusion, significant stenosis or dissection. LEFT VERTEBRAL ARTERY: No occlusion, significant stenosi (more content not included)... Normal [facility] Thyroid Stim Hormone (TSH)on 09-30-2023 TSH 2.17 uIU/mL Normal 0.358-3.74 [facility] Comment on above: Performed By: #### L [id number], [id number] ####[facility] [id number] [place], [address] CNOVon 06-24-2023 CNOV Office Visit (AKURFL ) JUAN JOSE FOSTER ([id number]) 1935 M Date Time Provider Department 06/24/23 8:30 AM SHARATH ISSA During your visit today, we recorded the following information about you: Pulse Height 72/minute 1.829 m Sharath Issa MD 06/27/2023 8:06 AM Signed ESTABLISHED PATIENT OFFICE VISIT PATIENT INFO: Juan Jose Foster 88 year old [facility] 06/24/2023 CC: cysto uses coude catheter and passing every day and that works fine On cystoscopy same as last visit and cannot get the scope through it and there is the 6:00 ledge mid prostate as before and all looks stable He will call and let us know what medications he is on because he brought in a pill that is round and somewhat thick and that gets stuck in his esophagus He thinks it is a prostate shrinking pill but I do not see that we have him on Proscar We just had him on Uroxatrol and Detrol but I do not see Detrol on med list He will call and let us know things look stable so I think he can stop the urethral catheter passages as given what I see could cause trauma and problems and things could just stay stable without catheterization and he agrees Complains of erectile dysfunction- Viagra and Cialis did not work well and discussed vacuum device for his penile injection therapy or prosthesis placement options etc. in detail He is not interested in any of those Past Urology Hx: 11/16/2022 CC: cysto I did urethral dilation and then saw the nurse on October 26 to learn intermittent catheterization/reviewed again and plans to do it daily Presents today for cystoscopy Patient is using coude catheter and able to pass it and feels maybe a little snug and that is working well for him and he is satisfied On cystoscopy there is a ledge at 6:00 in that is why the coude catheter most likely passes without problem and straight catheter might get hung up He is going back to [place] in a few weeks and he knows to reconnect with urology there if he has problems Could always consult with Dr. Summers or Dr. Yamile Trujillo at [facility] who are stricture specialists and he will hold off on that for now ;; 10/19/2022 CC: cysto Was doing great but 2 days ago stream got a lot worse and frequency and no gross hematuria or dysuria Remains on the Uroxatrol and Detrol and the Eliquis On cystoscopy recurrence of bladder neck contracture and is small hole and a little below it a couple small holes that I think I can see through the bladder also Discussed options and will take to [facility] for cystoscopy and urethral dilation and probably Kern placement and he will hold his Levaquin for now Denies chest pain or shortness of breath Dipstick urine negative 09/14/2022 CC: cysto Patient remains on Eliquis and he likes the tolterodine and is voiding great and very happy and remains on Uroxatrol Cystoscopy today showed some repeat narrowing just distal to the bladder neck and the prostate and I was able to push the scope through it with a little pressure and dilate the area and he has minimal residual urine He will stay on usual medications and wants repeat cystoscopy in 3-4 weeks to see if it can heal open and might need periodic dilatation in the meantime 08/17/2022 CC: tur Status post transurethral section bladder neck contracture and saw nurse for voiding trialAs he was sent home same day with Kern catheter in place Patient voiding and stream is great but can just leak and using a pad and just recently now is dry at night and might have nocturia x2-3 Using pads in the day Not necessarily specific urge when leaks We will send off urine culture today Start Detrol Cystoscopy in 4 weeks and hopefully things settle down And surgery we did not take any resection near the apical prostate at all--Prostatic fossa was wide open Bladder scan/PVR: occ 07/20/2022 CC: cysto Months of urine frequency in the morning but later in the afternoon that settles down like before still Denies dysuria or gross hematuria and voiding as per last visit No fevers or chills Cystoscopy shows obstruction mid prostate or bladder neck as noted below Residual urine still around 80 cc We will schedule for cystoscopy and urethral dilation and possible DVIU/TURP/Pyelogram He will need to be off Eliquis and will get clearance for that and want him off at least 1 week after the procedure also Denies chest pain or shortness of breath We will schedule at [facility] Bladder scan/postvoid residual-80 cc approximate 06/29/2022 CC: marcy Saw me last noted below and had laser TURP Did well afterwards but then having more trouble so underwent TURP in December 2021 in [place] and did well but over the last month slower stream and nocturia 3-4 and moreUrgency Residual urine 79 cc Not on alpha blockers and so we will add Uroxatro (more content not included)... Normal [facility] UA DIP, URINE (POC)on 2023 BILIRUBIN UA (POCT) Negative Negative [facility] CLARITY UA (POCT) Clear [facility] COLOR UA (POCT) Yellow [facility] GLUCOSE UA (POCT) Negative Negative mg/dL [facility] Hemoglobin Ql (U) Large Abnormal Negative [facility] Interpretation and review of laboratory results Abnormal [facility] KETONE UA (POCT) Negative Negative mg/dL [facility] LEUKOCYTES UA (POCT) Small Abnormal Negative [facility] NITRITE UA (POCT) Negative Negative [facility] PH UA (POCT) 6.0 4.5 - 8.0 [facility] Protein Ql (U) Negative Negative mg/dL [facility] SPECIFIC GRAVITY UA (POCT) 1.025 1.005 - 1.030 [facility] UROBILINOGEN UA (POCT) 1.0 Normal E.U./dL [facility] Location:[facility], [address] [place] [address], [address] [place] [address] POINT OF CARE [facility] UA DIP, URINE (POC)on 2022 BILIRUBIN UA (POCT) Negative Negative [facility] CLARITY UA (POCT) Clear [facility] COLOR UA (POCT) Yellow [facility] GLUCOSE UA (POCT) Negative Negative mg/dL [facility] Hemoglobin Ql (U) Negative Negative [facility] KETONE UA (POCT) Negative Negative mg/dL [facility] LEUKOCYTES UA (POCT) Negative Negative [facility] NITRITE UA (POCT) Negative Negative [facility] PH UA (POCT) 6.5 4.5 - 8.0 [facility] Protein Ql (U) Negative Negative mg/dL [facility] SPECIFIC GRAVITY UA (POCT) 1.020 1.005 - 1.030 [facility] UROBILINOGEN UA (POCT) 0.2 E.U./dL Normal E.U./dL [facility] UA DIP, URINE (POC)on 2022 BILIRUBIN UA (POCT) Negative Negative [facility] CLARITY UA (POCT) Clear [facility] COLOR UA (POCT) Yellow [facility] GLUCOSE UA (POCT) Negative Negative mg/dL [facility] Hemoglobin Ql (U) Trace-intact Abnormal Negative [facility] KETONE UA (POCT) Negative Negative mg/dL [facility] LEUKOCYTES UA (POCT) Negative Negative [facility] NITRITE UA (POCT) Negative Negative [facility] PH UA (POCT) 6.5 4.5 - 8.0 [facility] Protein Ql (U) Trace Abnormal Negative mg/dL [facility] SPECIFIC GRAVITY UA (POCT) >=1.030 1.005 - 1.030 [facility] UROBILINOGEN UA (POCT) 1.0 E.U./dL Normal E.U./dL [facility] UA DIP, URINE (POC)on 2022 BILIRUBIN UA (POCT) Negative Negative [facility] CLARITY UA (POCT) Clear [facility] COLOR UA (POCT) Yellow [facility] GLUCOSE UA (POCT) Negative Negative mg/dL [facility] HEMOGLOBIN/BLOOD UA (POCT) Negative Negative [facility] KETONE UA (POCT) Negative Negative mg/dL [facility] LEUKOCYTES UA (POCT) Trace Abnormal Negative [facility] NITRITE UA (POCT) Negative Negative [facility] PH UA (POCT) 5.5 4.5 - 8.0 [facility] Protein Ql (U) Negative Negative mg/dL [facility] SPECIFIC GRAVITY UA (POCT) 1.020 1.005 - 1.030 [facility] UROBILINOGEN UA (POCT) 0.2 E.U./dL Normal E.U./dL [facility] No Panel Informationon 10-13 Radiology Study observation (narrative) [facility] XR Chest PA and Lateralon IMPRESSION: Linear indeterminate density at both lung bases. Likely atelectasis or fibrosis. No new significant collapse or consolidation Supervisor Instrument Repair: BLANK Transcribe Date/Time: Oct 13 2020 10:37A Dictated by : HENRY PEÑA MD This examination was interpreted and the report reviewed and electronically signed by: HENRY PEÑA MD on Oct 13 2020 10:40AM [facility] DIVISION OF RADIOLOGY * * *Final Report* * * DATE OF EXAM: Oct 13 2020 10:32AM WOX 5291 - XR CHEST 2V FRONTAL/LAT / PROCEDURE REASON: Viral URI * * * * Physician Interpretation * * * * EXAMINATION: CHEST RADIOGRAPH (2 VIEW FRONTAL & LATERAL) CLINICAL HISTORY: Viral URI MQ: XC2_6 EXAM DATE/TIME: 10/13/2020 10:32 AM COMPARISON: CT scans of 09/12/2019. And 05/09/2018 CT scans RESULT: Lines, tubes, and devices: None. Lungs and pleura: No consolidation. No lung mass. No pleural effusion. No pneumothorax. Linear indeterminate density at both lung bases. Likely atelectasis or fibrosis. Not significantly changed from recent CT scans. Cardiomediastinal silhouette: Normal cardiomediastinal silhouette. Bones and soft tissues: Unremarkable. DIVISION OF RADIOLOGY Provider, Edgardo Anguiano - 10/13/2020 * * *Final Report* * * DATE OF EXAM: Oct 13 2020 10:32AM WOX 5291 - XR CHEST 2V FRONTAL/LAT / PROCEDURE REASON: Viral URI * * * * Physician Interpretation * * * * EXAMINATION: CHEST RADIOGRAPH (2 VIEW FRONTAL & LATERAL) CLINICAL HISTORY: Viral URI MQ: XC2_6 EXAM DATE/TIME: 10/13/2020 10:32 AM COMPARISON: CT scans of 09/12/2019. And 05/09/2018 CT scans RESULT: Lines, tubes, and devices: None. Lungs and pleura: No consolidation. No lung mass. No pleural effusion. No pneumothorax. Linear indeterminate density at both lung bases. Likely atelectasis or fibrosis. Not significantly changed from recent CT scans. Cardiomediastinal silhouette: Normal cardiomediastinal silhouette. Bones and soft tissues: Unremarkable. IMPRESSION IMPRESSION: Linear indeterminate density at both lung bases. Likely atelectasis or fibrosis. No new significant collapse or consolidation Supervisor Instrument Repair: [facility] Transcribe Date/Time: Oct 13 2020 10:37A Dictated by : HENRY PEÑA MD This examination was interpreted and the report reviewed and electronically signed by: HENRY PEÑA MD on Oct 13 2020 10:40AM [facility] XR Knee - right 4 Viewson IMPRESSION: Degenerative changes as described. Supervisor Instrument Repair: [facility] Transcribe Date/Time: Oct 13 2020 10:38A Dictated by : JAVAN LOUIS MD This examination was interpreted and the report reviewed and electronically signed by: JAVAN LOUIS MD on Oct 13 2020 10:39AM [facility] DIVISION OF RADIOLOGY * * *Final Report* * * DATE OF EXAM: Oct 13 2020 10:32AM WOX 5203 - XR KNEE 4V AP/PA BOTH+LAT/TYRA RT / PROCEDURE REASON: Knee injury, right, initial encounter * * * * Physician Interpretation * * * * CLINICAL INDICATION: Knee pain TECHNIQUE: AP/PA/merchant radiographs of both knees and lateral radiograph of the right knee COMPARISON: None FINDINGS: Right knee: Small suprapatellar joint effusion. No acute fracture or dislocation. Moderate lateral and patellofemoral compartmental joint space narrowing with small marginal osteophyte formation. Mild medial compartmental joint space narrowing. Left knee: No acute fracture or dislocation. Moderate lateral and patellofemoral compartmental joint space narrowing with miniscule osteophyte formation. Mild medial compartmental joint space narrowing. DIVISION [facility] RADIOLOGY [facility] * * *Final Report* * * DATE OF EXAM: Oct 13 2020 10:32AM WOX 5203 - XR KNEE 4V AP/PA BOTH+LAT/TYRA RT / PROCEDURE REASON: Knee injury, right, initial encounter * * * * Physician Interpretation * * * * CLINICAL INDICATION: Knee pain TECHNIQUE: AP/PA/merchant radiographs of both knees and lateral radiograph of the right knee COMPARISON: None FINDINGS: Right knee: Small suprapatellar joint effusion. No acute fracture or dislocation. Moderate lateral and patellofemoral compartmental joint space narrowing with small marginal osteophyte formation. Mild medial compartmental joint space narrowing. Left knee: No acute fracture or dislocation. Moderate lateral and patellofemoral compartmental joint space narrowing with miniscule osteophyte formation. Mild medial compartmental joint space narrowing. IMPRESSION IMPRESSION: Degenerative changes as described. Supervisor Instrument Repair: [facility] Transcribe Date/Time: Oct 13 2020 10:38A Dictated by : JAVAN LOUIS MD This examination was interpreted and the report reviewed and electronically signed by: JAVAN LOUIS MD on Oct 13 2020 10:39AM EST [facility] XR Knee - right 4 ViewsOrder ed By: [facility] Provider on 10-13-2020 [facility] US MSR POST-VOID RESID URINE [facility] Vital Signs Date Time Vital Sign Value Performing Clinician Facility 09-21-2024 08:28-0400 Body mass index (BMI) [Ratio] 27.89 kg/m2 Vikki Worley APRN.APPLICATIONS SPECIALIST Work Phone: [facility] 09-21-2024 08:28-0400 Body weight 90.72 kg Vikki Haagen FOUNTAIN JERK.APPLICATIONS SPECIALIST Work Phone: [facility] 09-21-2024 08:28-0400 Diastolic blood pressure 70 mm[Hg] Vikki Haagen FOUNTAIN JERK.APPLICATIONS SPECIALIST Work Phone: [facility] 09-21-2024 08:28-0400 Heart rate 101 /min Vikki Haagen FOUNTAIN JERK.APPLICATIONS SPECIALIST Work Phone: [facility] 09-21-2024 08:28-0400 Respiratory rate 16 /min Vikki Haagen FOUNTAIN JERK.APPLICATIONS SPECIALIST Work Phone: [facility] 09-21-2024 08:28-0400 Systolic blood pressure 122 mm[Hg] Vikki Haagen FOUNTAIN JERK.APPLICATIONS SPECIALIST Work Phone: [facility] 09-17-2024 08:21-0400 Body mass index (BMI) [Ratio] 27.95 kg/m2 Vikki Haagen FOUNTAIN JERK.APPLICATIONS SPECIALIST Work Phone: [facility] 09-17-2024 08:21-0400 Body weight 90.9 kg Vikki Haagen FOUNTAIN JERK.APPLICATIONS SPECIALIST Work Phone: [facility] 09-17-2024 08:21-0400 Diastolic blood pressure 70 mm[Hg] Vikki Haagen FOUNTAIN JERK.APPLICATIONS SPECIALIST Work Phone: [facility] 09-17-2024 08:21-0400 Heart rate 101 /min Vikki Haagen FOUNTAIN JERK.APPLICATIONS SPECIALIST Work Phone: [facility] 09-17-2024 08:21-0400 Respiratory rate 16 /min Vikki Haagen FOUNTAIN JERK.APPLICATIONS SPECIALIST Work Phone: [facility] 09-17-2024 08:21-0400 SaO2% (BldA) [Mass fraction] 98 % Vikki Haagen FOUNTAIN JERK.APPLICATIONS SPECIALIST Work Phone: [facility] 09-17-2024 08:21-0400 Systolic blood pressure 122 mm[Hg] Vikki Haagen FOUNTAIN JERK.APPLICATIONS SPECIALIST Work Phone: [facility] 09-11-2024 12:56-0400 Body temperature 97.4 [degF] Dr. Dipak Aguilar DO Work Phone: 3(767)937-395059 [place] [address] 09-11-2024 12:56-0400 Diastolic blood pressure 123 mm[Hg] Dr. Dipak Aguilar DO Work Phone: 2(572)073-481557 [place] [address] 09-11-2024 12:56-0400 Heart rate 78 /min Dr. Dipak Aguilar DO Work Phone: 8(303)815-758357 [place] [address] 09-11-2024 12:56-0400 Respiratory rate 16 /min Dr. Dipak Aguilar DO Work Phone: 4(079)499-345857 [place] [address] 09-11-2024 12:56-0400 SaO2% (BldA) [Mass fraction] 100 % Dr. Dipak Aguilar DO Work Phone: 8(187)168-850657 [place] [address] 09-11-2024 12:56-0400 Systolic blood pressure 190 mm[Hg] Dr. Dipak Aguilar DO Work Phone: 7(093)329-855757 [place] [address] 09-11-2024 10:13-0400 Body height 185.[address] Dipak Aguilar DO Work Phone: 1(482)224-346257 [place] [address] 09-11-2024 10:13-0400 Body mass index (BMI) [Ratio] 26.2 kg/m2 Dr. Dipak Aguilar DO Work Phone: 4(646)764-823457 [place] [address] 09-11-2024 10:13-0400 Body weight 90.[address] Dipak Aguilar DO Work Phone: 2(991)766-932657 [place] [address] 09-10-2024 11:58-0400 Diastolic blood pressure 88 mm[Hg] Jamal Lorenzo Jr., MD Work Phone: [facility] Comment on above: manual recheck 09-10-2024 11:58-0400 Systolic blood pressure 136 mm[Hg] Jamal Lorenzo Jr., MD Work Phone: [facility] Comment on above: manual recheck 09-10-2024 11:19-0400 Body mass index (BMI) [Ratio] 27.48 kg/m2 Jamal Lorenzo Jr., MD Work Phone: [facility] 09-10-2024 11:19-0400 Body weight 89.36 kg Jamal Lorenzo Jr., MD Work Phone: [facility] 09-10-2024 11:19-0400 Heart rate 83 /min Jamal Lorenzo Jr., MD Work Phone: [facility] 09-10-2024 11:19-0400 Respiratory rate 16 /min Jamal Lorenzo Jr., MD Work Phone: [facility] 09-10-2024 11:19-0400 SaO2% (BldA) [Mass fraction] 97 % Jamal Lorenzo Jr., MD Work Phone: [facility] 09-05-2024 11:55-0400 Body mass index (BMI) [Ratio] 27.62 kg/m2 Dipak Aguilar DO Work Phone: [facility] 09-05-2024 11:55-0400 Body temperature 97 [degF] Dipak Aguilar DO Work Phone: [facility] 09-05-2024 11:55-0400 Body weight 89.81 kg Dipak Aguilar DO Work Phone: [facility] 09-05-2024 11:55-0400 Diastolic blood pressure 82 mm[Hg] Dipak Aguilar DO Work Phone: [facility] 09-05-2024 11:55-0400 Heart rate 80 /min Dipak Aguilar DO Work Phone: [facility] 09-05-2024 11:55-0400 Respiratory rate 20 /min Dipak Aguilar DO Work Phone: [facility] 09-05-2024 11:55-0400 Systolic blood pressure 128 mm[Hg] Dipak Aguilar DO Work Phone: [facility] 07-02-2024 15:27-0400 Body height 180.3 cm Analisa Nicole MD Work Phone: [facility] 07-02-2024 15:27-0400 Body mass index (BMI) [Ratio] 28.4 kg/m2 Analisa Nicole MD Work Phone: [facility] 07-02-2024 15:27-0400 Body weight 92.35 kg Analisa Nicole MD Work Phone: [facility] 07-02-2024 15:27-0400 Diastolic blood pressure 70 mm[Hg] Analisa Nicole MD Work Phone: [facility] 07-02-2024 15:27-0400 Heart rate 90 /min Analisa Nicole MD Work Phone: [facility] 07-02-2024 15:27-0400 Respiratory rate 12 /min Analisa Nicole MD Work Phone: [facility] 07-02-2024 15:27-0400 SaO2% (BldA) [Mass fraction] 96 % Analisa Nicole MD Work Phone: [facility] 07-02-2024 15:27-0400 Systolic blood pressure 128 mm[Hg] Analisa Nicole MD Work Phone: [facility] 06-28-2024 13:31-0400 Body mass index (BMI) [Ratio] 28.19 kg/m2 Judith Rameshman FOUNTAIN JERK.APPLICATIONS SPECIALIST Work Phone: [facility] 06-28-2024 13:31-0400 Body weight 93.8 kg Judith Rameshman FOUNTAIN JERK.APPLICATIONS SPECIALIST Work Phone: [facility] 06-28-2024 13:31-0400 Diastolic blood pressure 88 mm[Hg] Judith Jose FOUNTAIN JERK.APPLICATIONS SPECIALIST Work Phone: [facility] 06-28-2024 13:31-0400 Heart rate 76 /min Judith Rameshman FOUNTAIN JERK.APPLICATIONS SPECIALIST Work Phone: [facility] 06-28-2024 13:31-0400 SaO2% (BldA) [Mass fraction] 95 % Judith Rameshman FOUNTAIN JERK.APPLICATIONS SPECIALIST Work Phone: [facility] 06-28-2024 13:31-0400 Systolic blood pressure 144 mm[Hg] Judith Jose FOUNTAIN JERK.APPLICATIONS SPECIALIST Work Phone: [facility] 05-30-2024 14:41-0400 Body mass index (BMI) [Ratio] 27.68 kg/m2 Judith Jose FOUNTAIN JERK.APPLICATIONS SPECIALIST Work Phone: [facility] 05-30-2024 14:41-0400 Body weight 92.08 kg Judith Jose FOUNTAIN JERK.APPLICATIONS SPECIALIST Work Phone: [facility] 05-30-2024 14:41-0400 Diastolic blood pressure 78 mm[Hg] Judith Jose FOUNTAIN JERK.APPLICATIONS SPECIALIST Work Phone: [facility] 05-30-2024 14:41-0400 Heart rate 78 /min Judith Jose FOUNTAIN JERK.APPLICATIONS SPECIALIST Work Phone: [facility] 05-30-2024 14:41-0400 SaO2% (BldA) [Mass fraction] 94 % Judith Jose FOUNTAIN JERK.APPLICATIONS SPECIALIST Work Phone: [facility] 05-30-2024 14:41-0400 Systolic blood pressure 110 mm[Hg] Judith Jose FOUNTAIN JERK.APPLICATIONS SPECIALIST Work Phone: [facility] 05-16-2024 13:15-0400 Body mass index (BMI) [Ratio] 28.96 kg/m2 Radha Berman FOUNTAIN JERK.APPLICATIONS SPECIALIST Work Phone: [facility] 05-16-2024 13:15-0400 Body weight 96.34 kg Radha Berman FOUNTAIN JERK.APPLICATIONS SPECIALIST Work Phone: [facility] 05-16-2024 13:15-0400 Diastolic blood pressure 68 mm[Hg] Radha Berman FOUNTAIN JERK.APPLICATIONS SPECIALIST Work Phone: [facility] 05-16-2024 13:15-0400 Heart rate 87 /min Radha Berman FOUNTAIN JERK.APPLICATIONS SPECIALIST Work Phone: [facility] 05-16-2024 13:15-0400 Respiratory rate 16 /min Radha Berman FOUNTAIN JERK.APPLICATIONS SPECIALIST Work Phone: [facility] 05-16-2024 13:15-0400 SaO2% (BldA) [Mass fraction] 97 % Radha Berman FOUNTAIN JERK.APPLICATIONS SPECIALIST Work Phone: [facility] 05-16-2024 13:15-0400 Systolic blood pressure 130 mm[Hg] Radha Berman FOUNTAIN JERK.APPLICATIONS SPECIALIST Work Phone: [facility] 12-05-2023 13:31-0400 Body height 182.4 cm Pulm Wstr Work Phone: [facility] 12-05-2023 13:31-0400 Body mass index (BMI) [Ratio] 27.54 kg/m2 Pulm Wstr Work Phone: [facility] 12-05-2023 13:31-0400 Body weight 91.63 kg Pulm Wstr Work Phone: [facility] 12-05-2023 13:31-0400 Heart rate 87 /min Pulm Wstr Work Phone: [facility] 12-05-2023 13:31-0400 Respiratory rate 16 /min Pulm Wstr Work Phone: [facility] 12-05-2023 13:31-0400 SaO2% (BldA) [Mass fraction] 97 % Pulm Wstr Work Phone: [facility] 11-29-2023 07:05-0400 Body mass index (BMI) [Ratio] 27.53 kg/m2 Judith Jose FOUNTAIN JERK.APPLICATIONS SPECIALIST Work Phone: [facility] 11-29-2023 07:05-0400 Body weight 92.08 kg Judith Jose FOUNTAIN JERK.APPLICATIONS SPECIALIST Work Phone: [facility] 11-29-2023 07:05-0400 Diastolic blood pressure 78 mm[Hg] Judith Jose FOUNTAIN JERK.APPLICATIONS SPECIALIST Work Phone: [facility] 11-29-2023 07:05-0400 Heart rate 78 /min Judith Jose FOUNTAIN JERK.APPLICATIONS SPECIALIST Work Phone: [facility] 11-29-2023 07:05-0400 Respiratory rate 16 /min Judith Jose FOUNTAIN JERK.APPLICATIONS SPECIALIST Work Phone: [facility] 11-29-2023 07:05-0400 SaO2% (BldA) [Mass fraction] 98 % Judith Jose FOUNTAIN JERK.APPLICATIONS SPECIALIST Work Phone: [facility] 11-29-2023 07:05-0400 Systolic blood pressure 126 mm[Hg] Judith Jose FOUNTAIN JERK.APPLICATIONS SPECIALIST Work Phone: [facility] 09-12-2023 10:16-0400 Body height 182.9 cm Analisa Nicole MD Work Phone: [facility] 09-12-2023 10:16-0400 Body mass index (BMI) [Ratio] 27.97 kg/m2 Analisa Nicole MD Work Phone: [facility] 09-12-2023 10:16-0400 Body weight 93.53 kg Analisa Nicole MD Work Phone: [facility] 09-12-2023 10:16-0400 Diastolic blood pressure 99 mm[Hg] Analisa Nicole MD Work Phone: [facility] 09-12-2023 10:16-0400 Heart rate 75 /min Analisa Nicole MD Work Phone: [facility] 09-12-2023 10:16-0400 SaO2% (BldA) [Mass fraction] 94 % Analisa Nicole MD Work Phone: [facility] 09-12-2023 10:16-0400 Systolic blood pressure 145 mm[Hg] Analisa Nicole MD Work Phone: [facility] 06-24-2023 08:19-0400 Body height 182.9 cm Sharath Issa MD Work Phone: [facility] 06-24-2023 08:19-0400 Heart rate 72 /min Sharath Issa MD Work Phone: [facility] 06-24-2023 08:19-0400 SaO2% (BldA) [Mass fraction] 100 % Sharath Issa MD Work Phone: [facility] 10-19-2022 10:09-0400 Body height 185.4 cm Sharath Issa MD Work Phone: [facility] 10-19-2022 10:09-0400 Heart rate 76 /min Sharath Issa MD Work Phone: [facility] 10-19-2022 10:09-0400 SaO2% (BldA) [Mass fraction] 100 % Sharath Issa MD Work Phone: [facility] 10-12-2022 11:40-0400 Diastolic blood pressure 72 mm[Hg] Beata Watkins APRN.APPLICATIONS SPECIALIST Work Phone: [facility] 10-12-2022 11:40-0400 Heart rate 77 /min Beata Watkins APRN.APPLICATIONS SPECIALIST Work Phone: [facility] 10-12-2022 11:40-0400 SaO2% (BldA) [Mass fraction] 98 % Beata Watkins APRN.APPLICATIONS SPECIALIST Work Phone: [facility] 10-12-2022 11:40-0400 Systolic blood pressure 126 mm[Hg] Beata Watkins APRN.APPLICATIONS SPECIALIST Work Phone: [facility] 08-31-2022 08:21-0400 Body weight 93.44 kg Wes Mcintosh MD Work Phone: [facility] 08-31-2022 08:21-0400 Diastolic blood pressure 70 mm[Hg] Wes Mcintosh MD Work Phone: [facility] 08-31-2022 08:21-0400 Heart rate 74 /min Wes Mcintosh MD Work Phone: [facility] 08-31-2022 08:21-0400 Systolic blood pressure 110 mm[Hg] Wes Mcintosh MD Work Phone: [facility] 08-17-2022 10:19-0400 Body height 185.4 cm Sharath Issa MD Work Phone: [facility] 08-17-2022 10:19-0400 Heart rate 91 /min Sharath Issa MD Work Phone: [facility] 08-17-2022 10:19-0400 SaO2% (BldA) [Mass fraction] 97 % Sharath Issa MD Work Phone: [facility] 07-26-2022 09:23-0400 Body weight 96.16 kg Crystal Pradhan FOUNTAIN JERK.APPLICATIONS SPECIALIST Work Phone: [facility] 07-26-2022 09:23-0400 Diastolic blood pressure 84 mm[Hg] Crystal Pradhan FOUNTAIN JERK.APPLICATIONS SPECIALIST Work Phone: [facility] 07-26-2022 09:23-0400 Heart rate 74 /min Crystal Pradhan FOUNTAIN JERK.APPLICATIONS SPECIALIST Work Phone: [facility] 07-26-2022 09:23-0400 Respiratory rate 14 /min Crystal Pradhan FOUNTAIN JERK.APPLICATIONS SPECIALIST Work Phone: [facility] 07-26-2022 09:23-0400 Systolic blood pressure 128 mm[Hg] Crystal Pradhan FOUNTAIN JERK.APPLICATIONS SPECIALIST Work Phone: [facility] 07-20-2022 10:12-0400 Body height 185.4 cm Sharath Issa MD Work Phone: [facility] 07-20-2022 10:12-0400 Diastolic blood pressure 90 mm[Hg] hSarath Issa MD Work Phone: [facility] 07-20-2022 10:12-0400 Heart rate 84 /min Sharath Issa MD Work Phone: [facility] 07-20-2022 10:12-0400 Systolic blood pressure 144 mm[Hg] Sharath Issa MD Work Phone: [facility] 07-01-2022 07:12-0400 Body temperature 97.59 [degF] Krislyn Aberegg PA Work Phone: [facility] 07-01-2022 07:12-0400 Body weight 96.8 kg Krislyn Aberegg PA Work Phone: [facility] 07-01-2022 07:12-0400 Diastolic blood pressure 76 mm[Hg] Krislyn Aberegg PA Work Phone: [facility] 07-01-2022 07:12-0400 Heart rate 94 /min Krislyn Aberegg PA Work Phone: [facility] 07-01-2022 07:12-0400 Respiratory rate 18 /min Krislyn Aberegg PA Work Phone: [facility] 07-01-2022 07:12-0400 SaO2% (BldA) [Mass fraction] 96 % Krislyn Aberegg PA Work Phone: [facility] 07-01-2022 07:12-0400 Systolic blood pressure 128 mm[Hg] Krislyn Aberegg PA Work Phone: [facility] 06-29-2022 15:26-0400 Body height 180.3 cm Sharath Issa MD Work Phone: [facility] 06-29-2022 15:26-0400 Body weight 95.25 kg Sharath Issa MD Work Phone: [facility] 06-29-2022 15:26-0400 Respiratory rate 18 /min Sharath Issa MD Work Phone: [facility] 12-08-2021 09:35-0400 Body temperature 97.59 [degF] Korin Araiza APRN.APPLICATIONS SPECIALIST Work Phone: [facility] 12-08-2021 09:35-0400 Body weight 95.53 kg Korin Araiza APRN.APPLICATIONS SPECIALIST Work Phone: [facility] 12-08-2021 09:35-0400 Diastolic blood pressure 64 mm[Hg] Korin Araiza APRN.APPLICATIONS SPECIALIST Work Phone: [facility] 12-08-2021 09:35-0400 Heart rate 86 /min Korin Araiza APRN.APPLICATIONS SPECIALIST Work Phone: [facility] 12-08-2021 09:35-0400 Respiratory rate 18 /min Korin Araiza APRN.APPLICATIONS SPECIALIST Work Phone: [facility] 12-08-2021 09:35-0400 SaO2% (BldA) [Mass fraction] 99 % Korin Araiza APRN.APPLICATIONS SPECIALIST Work Phone: [facility] 12-08-2021 09:35-0400 Systolic blood pressure 122 mm[Hg] Korin Araiza APRN.APPLICATIONS SPECIALIST Work Phone: [facility] Encounters Encounter Date Encounter Type Care Provider Facility Start: 10-10-2024 End: 10-11-2024 Telephone encounter Dipak Aguilar DO Work Phone: [facility] [place] Comment on above: Patent Update: [place] t[facility]ler [facility] Start: 09-21-2024 End: 09-21-2024 Patient encounter procedure Vikki Worley APRN.APPLICATIONS SPECIALIST Work Phone: [facility] [place] Comment on above: Laceration of right hand without foreign body, subsequent encounter (Primary Dx) Start: 09-21-2024 End: 09-21-2024 ambulatory DIPAK L AGUILAR Facility:[facility] Start: 09-17-2024 End: 09-17-2024 Office outpatient visit 25 minutes Vikki Worley APRN.APPLICATIONS SPECIALIST Work Phone: [facility] [place] Comment on above: Right eyelid lacerat ion, subsequent encounter (Primary Dx) Start: 09-17-2024 End: 09-17-2024 ambulatory DIPAK L AGUILAR Facility:[facility] Start: 09-11-2024 End: 09-11-2024 Emergency department patient visit Dr. 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; Laceration without foreign body of right hand, initial encounter; Atrial fibrillation, unspecified type (HCC) Start: 09-10-2024 End: 09-10-2024 ambulatory DIPAK L AGUILAR Facility:[facility] Start: 09-10-2024 End: 09-10-2024 Patient encounter procedure Jamal Lorenzo MD Work Phone: Neurology Comment on above: TIA (transient ische daniel attack) (Primary Dx); Mild cognitive impairment; Memory loss; Sleep apnea-like behavior; History of atrial fibrillation Start: 09-07-2024 End: 09-07-2024 ambulatory DIPAK L AGUILAR Facility:[facility] Start: 09-05-2024 End: 09-05-2024 Patient encounter procedure Dipak L Aguilar DO Work Phone: [facility] [place] Comment on above: Hypertension, essent ial (Primary Dx); Permanent atrial fibrillation (HCC); Pulmonary hypertension (HCC); New onset type 2 diabetes mellitus (HCC); Stage 3a chronic kidney disease (HCC); Cerebrovascular accident (CVA), unspecified mechanism (HCC); SOB (shortness of breath) on exertion; Vitamin D deficiency; Dyslipidemia; Fatigue, unspecified type Start: 09-05-2024 End: 09-05-2024 ambulatory DIPAK L AGUILAR Facility:[facility] Start: 08-22-2024 End: 08-22-2024 ambulatory DIPAK L AGUILAR Facility:[facility] Start: 07-12-2024 End: 07-12-2024 ambulatory DIPAK L AGUILAR Facility:[facility] Start: 07-02-2024 End: 07-02-2024 Patient encounter procedure Analisa Nicole MD Work Phone: Cardiology Comment on above: Permanent atrial fib rillation (HCC) [I48.21] (Primary Dx) Start: 07-02-2024 End: 07-02-2024 ambulatory DIPAK L AGUILAR Facility:[facility] Start: 06-28-2024 End: 06-28-2024 Office outpatient visit 25 minutes Judith Urbinautzman FOUNTAIN JERK.APPLICATIONS SPECIALIST Work Phone: [facility] [place] Comment on above: Hypertension, essent ial (Primary Dx); Permanent atrial fibrillation (HCC); New onset type 2 diabetes mellitus (HCC) Start: 06-28-2024 End: 06-28-2024 ambulatory DIPAK LEVION Facility:[facility] Start: 06-14-2024 End: 06-14-2024 [facility] Start: 06-13-2024 End: 06-13-2024 ambulatory [facility] Facility:[facility] Start: 06-08-2024 End: 06-08-2024 Telephone encounter Citlalli Bhatti RN Pulmonary Medicine Comment on above: FILM REQ-HARPSTER Start: 06-07-2024 End: 06-11-2024 Telephone encounter Dipak Aguilar DO Work Phone: [facility] [place] Comment on above: Patient Update Start: 05-31-2024 End: 05-31-2024 ambulatory Judith Garcia FOUNTAIN JERK.APPLICATIONS SPECIALIST Work Phone: [facility] [place] Comment on above: medication clarifica tion please Start: 05-31-2024 End: 05-31-2024 Refill Analisa Nicole MD Work Phone: [facility] [place] Comment on above: Med Change Request Start: 05-30-2024 End: 05-30-2024 Office outpatient visit 25 minutes Judith Garcia FOUNTAIN JERK.APPLICATIONS SPECIALIST Work Phone: [facility] [place] Comment on above: New onset type 2 vaughn betes mellitus (HCC) (Primary Dx); Permanent atrial fibrillation (HCC); Hypertension, essential Start: 05-30-2024 End: 05-31-2024 Refill Analisa Nicole MD Work Phone: [facility] [place] Comment on above: Refill Request Start: 05-24-2024 End: 05-29-2024 Telephone encounter Dipak Aguilar DO Work Phone: [facility] [place] Comment on above: Patient Update Start: 05-21-2024 End: 05-22-2024 Telephone encounter Dipak Aguilar DO Work Phone: [facility] [place] Comment on above: Home Health Nursing- Plan of Care (And physical therapy plan of care/); Hypertension Start: 05-18-2024 End: 07-18-2024 Follow-up encounter Judith Garcia APRN.APPLICATIONS SPECIALIST Work Phone: [facility] [place] Start: 05-17-2024 End: 05-17-2024 Follow-up encounter Radha Berman APRN.APPLICATIONS SPECIALIST Work Phone: [facility] [place] Start: 05-17-2024 End: 05-17-2024 Telephone encounter Dipak Aguilar DO Work Phone: [facility] [place] Comment on above: Fax over last OV Not e Start: 05-17-2024 End: 05-17-2024 ambulatory DIPAK AGUILAR Facility:[facility] Start: 05-17-2024 End: 05-17-2024 Subsequent hospital visit by physician [facility] Work Phone: Radiology Comment on above: Hospital discharge f ollow-up [Z09] Start: 05-16-2024 End: 05-16-2024 ambulatory RADHA BERMAN Facility:[facility] Start: 05-16-2024 End: 05-16-2024 Office outpatient visit 40 minutes Radha Berman APRN.APPLICATIONS SPECIALIST Work Phone: [facility] [place] Comment on above: Hospital discharge f ollow-up (Primary Dx); Asthma-COPD overlap syndrome (HCC); Chronic respiratory failure with hypoxia (HCC); Decreased activities of daily living (ADL); Bilateral leg edema; Confusion; Cerebrovascular accident (CVA), unspecified mechanism (HCC); Poor mobility; Unsteady gait Start: 02-06-2024 End: 02-08-2024 Angeles Nicole MD Work Phone: [facility] [place] Comment on above: Refill Request Start: 01-31-2024 End: 01-31-2024 Telephone encounter Analisa Nicole MD Work Phone: Cardiology Start: 01-24-2024 End: 01-24-2024 Patient encounter procedure [facility] Provider [facility] Start: 01-09-2024 End: 01-10-2024 Telephone encounter Dipak Aguilar DO Work Phone: [facility] [place] Comment on above: Medication Problem Start: 01-04-2024 End: 01-04-2024 Patient encounter procedure [facility] Provider [facility] Department Start: 01-04-2024 End: 01-04-2024 Telephone encounter Analisa Nicole MD Work Phone: [facility] [place] Comment on above: Cardiac Clearance Start: 12-13-2023 End: 12-13-2023 Telephone encounter Judith Garcia APRN.APPLICATIONS SPECIALIST Work Phone: [facility] [place] Comment on above: Results; Appointment Start: 12-12-2023 End: 12-12-2023 Telephone encounter Analisa Nicole MD Work Phone: Cardiology Start: 12-12-2023 End: 12-12-2023 ambulatory DIPAK L AGUILAR Facility:[facility] Start: 12-12-2023 End: 12-12-2023 Nursing evaluation of patient and report Nurse Card Admin [facility] Work Phone: Cardiology Comment on above: Screening for ischem ic heart disease (Primary Dx) Start: 12-12-2023 End: 12-12-2023 ambulatory DIPAK L AGUILAR Facility:[facility] Start: 12-12-2023 End: 12-12-2023 Subsequent hospital visit by physician [facility] Work Phone: Nuclear Medicine Start: 12-06-2023 End: 12-06-2023 Telephone encounter Dipak Aguilar DO Work Phone: [facility] [place] Start: 12-05-2023 End: 12-05-2023 Patient encounter procedure Pulm Lab [facility] Work Phone: PUL[facility] Start: 12-05-2023 End: 12-05-2023 Subsequent hospital visit by physician [facility] ([facility]) Work Phone: Cat Scan Comment on above: Wheezing [R06.2] Start: 12-05-2023 End: 12-05-2023 ambulatory Pulm [facility] Work Phone: [facility] Comment on above: Spirometry Start: 11-29-2023 End: 11-29-2023 ambulatory JUDITH JOSE Facility:[facility] Start: 11-29-2023 End: 11-29-2023 Patient encounter procedure Judith Jose TOPETE Work Phone: [facility] [place] Comment on above: Medicare annual well ness visit, subsequent (Primary Dx); Wheezing; Asthma-COPD overlap syndrome (HCC); SOB (shortness of breath) on exertion; Decreased activity tolerance; Productive cough; Screening for depression; Encounter for immunization; Encounter for screening examination for other mental health and behavioral disorders Start: 11-28-2023 End: 11-28-2023 ambulatory Nurse Card Admin [facility] Work Phone: Cardiology Comment on above: Stress Test Instruct ions for 12/05/23 Start: 11-28-2023 End: 11-28-2023 E-mail encounter from caregiver Nurse Card Admin [facility] Work Phone: Cardiology Start: 11-23-2023 End: 11-23-2023 ambulatory DIPAK AGUILAR Facility:[facility] Start: 11-23-2023 End: 11-23-2023 Office outpatient new 45 minutes Jeffrey Zurita MD Work Phone: Orthopaedics Comment on above: Lumbar spondylosis ( Primary Dx) Start: 11-23-2023 ambulatory DIPAK AGUILAR [facility] it:[facility] Start: 11-23-2023 End: 11-23-2023 Subsequent [facility] Work Phone: [facility] Comment on above: Bilateral hip pain [ M25.551, M25.552] Start: 11-14-2023 End: 11-16-2023 Refill Analisa Nicole MD Work Phone: [facility]iology [place] Comment on above: Refill Request Start: 11-10-2023 End: 11-10-2023 Orders Only Jeffrey Zurita MD Work Phone: Orthopaedics Comment on above: Bilateral hip pain ( Primary Dx) Start: 11-04-2023 End: 11-04-2023 ambulatory DIPAK AGUILAR Facility:[facility] Start: 11-02-2023 End: 11-03-2023 Telephone encounter Dipak Aguilar DO Work Phone: [facility] [place] Start: 11-01-2023 End: 11-01-2023 Refill Wes Mcintosh MD Work Phone: [facility] [place] Comment on above: Refill Request Start: 10-04-2023 Telephone encounter Dipak upton DO Work Phone: [facility] [place] Start: 09-30-2023 End: 10-01-2023 ambulatory [facility] Facility:[facility] Start: 09-30-2023 ambulatory Facility:[facility] Start: 09-28-2023 Telephone encounter Analisa Nicole MD Work Phone: Cardiology Comment on above: Results Start: 09-12-2023 End: 09-12-2023 Patient encounter procedure Analisa Nicole MD Work Phone: Cardiology Comment on above: Screening for ischem ic heart disease (Primary Dx); Shortness of breath; Permanent atrial fibrillation (HCC) Start: 06-24-2023 End: 06-24-2023 Patient encounter procedure Sharath Issa MD Work Phone: [facility] Comment on above: Bladder neck strictu re (Primary Dx); ED (erectile dysfunction) of organic origin Start: 06-24-2023 End: 06-24-2023 ambulatory SHARATH ISSA Facility:[facility] Start: 05-17-2023 Refill Sharath Issa MD Work Phone: [facility] Comment on above: Refill Request Start: 05-02-2023 ambulatory Mini Saldaña RN [facility] Comment on above: NISA DURHAM RN ( EDU per request of payor) Start: 11-19-2022 Telephone encounter Radha neff FOUNTAIN JERK.APPLICATIONS SPECIALIST Work Phone: [facility] [place] Comment on above: Results Start: 11-01-2022 Refill Wes Mcintosh MD Work Phone: Cardiology Comment on above: Refill Request Start: 10-26-2022 End: 10-26-2022 Nursing evaluation of patient and report Nurse Urol Marcy Work Phone: [facility] Comment on above: BPH with obstruction /lower urinary tract symptoms (Primary Dx) Start: 10-20-2022 Preprocedural examination done Sharath Issa MD Work Phone: [facility] Work Phone: Start: 10-20-2022 Telephone encounter Sharath Issa MD Work Phone: [place] [facility] 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: 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 Start: 10-19-2022 End: 10-19-2022 Patient encounter procedure Sharath Issa MD Work Phone: [facility] Comment on above: Weak urinary stream (Primary Dx); Bladder neck stricture; Frequency of micturition Start: 10-14-2022 Telephone encounter Dipak upton DO Work Phone: [facility] [place] Comment on above: requesting a GI refe rral Start: 10-12-2022 End: 10-12-2022 Patient encounter procedure Beata Watkins APRN.APPLICATIONS SPECIALIST Work Phone: [facility] Comment on above: Weak urinary stream (Primary Dx); Incomplete bladder emptying; Bladder neck stricture; Poor urinary stream; Nocturia Start: 09-29-2022 Telephone encounter Dipak upton DO Work Phone: [facility] [place] Comment on above: Medication Problem Start: 08-31-2022 End: 08-31-2022 Patient encounter procedure Wes Mcintosh MD Work Phone: Cardiology Comment on above: Permanent atrial fib rillation (HCC) (Primary Dx) Start: 08-20-2022 Telephone encounter Sharath Issa MD Work Phone: [facility] Comment on above: Results Start: 08-17-2022 End: 08-17-2022 Patient encounter procedure Sharath Issa MD Work Phone: [facility] Comment on above: Bladder neck strictu re (Primary Dx); Nocturia; Urinary incontinence, unspecified type Start: 08-09-2022 End: 08-09-2022 Nursing evaluation of patient and report Nurse Urol Marcy Work Phone: [facility] Comment on above: BPH with obstruction /lower urinary tract symptoms (Primary Dx) Start: 08-05-2022 Telephone encounter Sharath Issa MD Work Phone: [facility] 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: 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 Start: 07-29-2022 Preprocedural examination done Sharath Issa MD Work Phone: [facility] Work Phone: Start: 07-26-2022 End: 07-26-2022 Patient encounter procedure Crystal Pradhan APRN.APPLICATIONS SPECIALIST Work Phone: [facility] [place] Comment on above: Preoperative clearan ce (Primary Dx); Asthma-COPD overlap syndrome (HCC); Atrial fibrillation, unspecified type (HCC) Start: 07-26-2022 End: 07-26-2022 Preoperative state Crystal Pradhan APRN.APPLICATIONS SPECIALIST Work Phone: [facility] [place] Start: 07-22-2022 Telephone encounter Sharath Issa MD Work Phone: [facility] Comment on above: Surgery Scheduled Start: 07-21-2022 Telephone encounter Dipak upton DO Work Phone: [facility] [place] Comment on above: medical clearance fo rm Start: 07-20-2022 End: 07-20-2022 Patient encounter procedure Sharath Issa MD Work Phone: [facility] Comment on above: BPH with obstruction /lower urinary tract symptoms (Primary Dx); Nocturia; Poor urinary stream; Incomplete bladder emptying; Bladder neck stricture Start: 07-01-2022 End: 07-01-2022 Patient encounter procedure Denise FLOYD Work Phone: [place] [facility] Comment on above: Acute otitis externa of right ear, unspecified type (Primary Dx); Cellulitis of right external ear Start: 06-29-2022 End: 06-29-2022 Patient encounter procedure Sharath Issa MD Work Phone: [facility] Comment on above: BPH with obstruction /lower urinary tract symptoms (Primary Dx); Nocturia; Poor urinary stream; Frequency of micturition; Incomplete bladder emptying Start: 12-28-2021 Telephone encounter Wes Booth MD Work Phone: Cardiology Comment on above: Patient Update Start: 12-08-2021 End: 12-08-2021 Patient encounter procedure Korin Mariana TOPETE Work Phone: [place] [facility] Comment on above: Skin lesion (Primary Dx) Start: 12-07-2021 Telephone encounter Dipak upton DO Work Phone: [facility] [place] Comment on above: Results Start: 12-01-2021 End: 12-01-2021 Nursing evaluation of patient and report Mi Nurse Work Phone: [facility] [place] Comment on above: Need for vaccination (Primary Dx) Start: 09-30-2021 Telephone encounter Wes Booth MD Work Phone: Cardiology Comment on above: Forms Start: 08-07-2021 ambulatory No Pcp Gisell tovar Burt Start: 10-13-2020 End: 10-13-2020 Subsequent hospital visit by physician Kendra [facility] Work Phone: Radiology Comment on above: Knee injury, right, initial encounter [S89.91XA] Start: 09-26-2019 Patient encounter status [facility] Start: 11-01-2017 End: 11-01-2017 Patient encounter SHARATHVINICIUS ISSA Facility:[facility] Procedures Date Procedure Procedure Detail Performing Clinician Start: 09-21-2024 REMOVAL SUTURES OR S TAPLES NOT REQUIRING ANESTHESIA Vikki Worley FOUNTAIN JERK.APPLICATIONS SPECIALIST Work Phone: Start: 09-17-2024 REMOVAL SUTURES OR S TAPLES NOT REQUIRING ANESTHESIA Vikki Worley FOUNTAIN JERK.APPLICATIONS SPECIALIST Work Phone: Start: 09-11-2024 X-ray of knee, four or more views Dr. Dipak Aguilar DO Work Phone: Start: 09-11-2024 CT of head without contrast Dr. Dipak Aguilar DO Work Phone: Start: 05-17-2024 Dup-scan xtr veins c omplete bilateral study Radha Berman FOUNTAIN JERK.APPLICATIONS SPECIALIST Work Phone: Start: 12-12-2023 Myocardial spect mul tiple studies Analisa Nicole MD Work Phone: Start: 12-05-2023 Plethysmography lung volumes w/wo airway resist Judith Garcia FOUNTAIN JERK.APPLICATIONS SPECIALIST Work Phone: Start: 11-29-2023 Adult depression scr eening assessment Judith Garcia FOUNTAIN JERK.APPLICATIONS SPECIALIST Work Phone: Start: 11-23-2023 Radex spine lumbosac ral 2/3 views Jeffrey Zurita MD Work Phone: Start: 11-23-2023 Radex hips bilateral with pelvis minimum 5 views Jeffrey Zurita MD Work Phone: Start: 09-12-2023 Ecg routine ecg w/le ast 12 lds i&r only [facility] Provider Start: 06-24-2023 Urnls dip stick/tabl et rgnt auto w/o microscopy Sharath Issa MD Work Phone: Start: 10-19-2022 Urnls dip stick/tabl et rgnt auto w/o microscopy Sharath Issa MD Work Phone: Start: 10-12-2022 Urnls dip stick/tabl et rgnt auto w/o microscopy Beata Watkins FOUNTAIN JERK.APPLICATIONS SPECIALIST Work Phone: Start: 08-17-2022 Maritza post-voiding re sidual urine&/bladder cap Sharath Issa MD Work Phone: Start: 08-17-2022 Culture bacterial quanttative colony count urine Sharath Issa MD Work Phone: Start: 07-26-2022 Ecg routine ecg w/le ast 12 lds i&r only [facility] Provider Start: 07-20-2022 Urnls dip stick/tabl et rgnt auto w/o microscopy Sharath Issa MD Work Phone: Start: 12-01-2021 [employer] COVI D-19 BIVALENT BOOSTER VACCINE, AGE 12+ YR Dipak Aguilar DO Work Phone: Start: 10-13-2020 Radiologic exam ches t 2 views Wes Chavez FOUNTAIN JERK.APPLICATIONS SPECIALIST Work Phone: Start: 10-13-2020 Radiologic exam knee complete 4/more views Wes Chavez APRN.APPLICATIONS SPECIALIST Work Phone: Plan of Treatment Date Care Activity Detail Author Start: 05-17-2027 Diabetes Screening Diabetes Screening [facility] Start: 11-03-2026 Diabetes Screening Diabetes Screening [facility] Start: 11-18-2025 Diabetes Screening Diabetes Screening [facility] Start: 09-30-2025 End: 09-30-2025 Patient encounter procedure 09/30/2025 2:00 PM EDT Office Visit [facility] [address] [place] [address] Sharath Issa MD [address] [place] [address] 12 months [facility] Comment on above: 12 months Start: 09-05-2025 Diabetic foot examination Diabetic Foot Exam [facility] Start: 06-08-2026 DIABETES SCREEN DIABETES SCREEN [facility] Start: 05-16-2025 Hepatitis B surface antibody level LDL Cholesterol [facility] Start: 02-22-2025 [facility]oglobin A[facility]c [facility] Start: 02-11-2025 End: 02-11-2025 Patient encounter procedure 02/11/2025 9:00 AM EST Office Visit Cardiology [address] [place] [address] Analisa Nicole MD [address] [facility], [address] [place] [address] 6 month follow up Cardiology Comment on above: 6 month follow up Start: 12-24-2024 End: 12-24-2024 Patient encounter procedure 12/24/2024 3:00 PM EST Office Visit [facility] [place] [address] [place] [address] Dipak Aguilar DO [address] [place] [address] 4 month follow up [facility] [place] Comment on above: 4 month follow up Start: 11-28-2024 Anxiety Screening Anxiety Screening [facility] Start: 11-28-2024 Depression Screening Depression Screening [facility] Start: 11-28-2024 Urine microalbumin profile DTaP,Tdap,Td Vaccine (1 - Tdap) [facility] Comment on above: Postponed from 11/12/2017 (Declined at t his time) Start: 11-16-2024 DIABETES SCREEN DIABETES SCREEN [facility] Start: 11-16-2024 Hemoglobin A1c measurement HbA1C [facility] Start: 10-22-2024 Influenza vaccination Influenza Vaccine (#1) [facility] Start: 09-25-2024 End: 09-25-2024 Patient encounter procedure [facility] Comment on above: 12 months (resched from 06/25) Yearly- Need updated medication list Start: 09-21-2024 End: 09-21-2024 Patient encounter procedure 09/21/2024 8:40 AM EDT Office Visit [facility] [place] [address] [place] [address] Vikki Worley, FOUNTAIN JERK.APPLICATIONS SPECIALIST [address] [place] [address] stitch removal on hand(done at [facility] ER 09/11/24) Family [facility] [place] Comment on above: stitch removal on hand(done at [facility] ER ) Start: 09-17-2024 End: 09-17-2024 Patient encounter procedure 09/17/2024 8:20 AM EDT Office Visit [facility] [place] [address] [place] [address] Vikki Worley APRN.APPLICATIONS SPECIALIST [address] [place] [address] [facility] ER 09/11/24 f/u-pt fell- stitch removal by eye [facility] [place] Comment on above: [facility] ER 09/11/24 f/u-pt fell- stitch remov al by eye Start: 09-11-2024 [facility] Start: 09-10-2024 End: 09-10-2024 Patient encounter procedure 09/10/2024 11:00 AM EDT Office Visit Neurology [address] [place] [address] Jamal Lorenzo Jr., MD [address] [place] [address] Hospital discharge follow-up [Z09] Neurology Comment on above: Hospital discharge follow-up [Z09] Start: 09-07-2024 End: 09-07-2024 Patient encounter procedure 09/07/2024 1:50 PM EDT Office Visit Cardiology [address] [place] [address] Permanent atrial fibrillation (HCC) [I48.21]; Hypertension, essential [I10]; Pulmonary hypertension (HCC) [I27.20] Cardiology Comment on above: Permanent atrial fibrillation (HCC) [I48 .21]; Hypertension, essential [I10]; Pulmonary hypertension (HCC) [I27.20] Start: 09-05-2024 End: 09-05-2024 Patient encounter procedure 09/05/2024 12:00 PM EDT Office Visit [facility] [place] [address] [place], [place] [address] Dipak Aguilar, [address] [place], [place] [address] 3 mo follow up Family [facility] Comment on above: 3 mo follow up Start: 07-12-2024 End: 07-12-2024 Patient encounter procedure 07/12/2024 3:20 PM EDT Office Visit Family [facility] [address] [place], [place] [address] Shayla Hines, FOUNTAIN JERK.APPLICATIONS SPECIALIST [address] [place], [place] [id number] 2 week follow up [facility] [place] Comment on above: 2 week follow up Start: 07-02-2024 End: 07-02-2024 Patient encounter procedure Cardiology Comment on above: 1yr Start: 06-25-2024 End: 06-25-2024 Patient encounter procedure [facility] Comment on above: 12 months 12/28 lvm need to r/ s Dr. Issa months Lung nodule [R91.1] Start: 06-14-2024 End: 06-14-2024 Patient encounter procedure 06/14/2024 1:30 PM EDT Office Visit Pulmonary Medicine [address] [place] [address] Omar Treadwell, FOUNTAIN JERK.APPLICATIONS SPECIALIST [address] [place] [address] Lung nodule [R91.1] Pulmonary Medicine Comment on above: Lung nodule [R91.1] Start: 06-13-2024 End: 06-13-2024 Patient encounter procedure 06/13/2024 3:40 PM EDT Office Visit [facility] [place] [address] [facility], [place] [id number] Judith Garcia, FOUNTAIN JERK.APPLICATIONS SPECIALIST [address] [place], [place] [phone] 2 week bp check [facility] [place] Comment on above: 2 week bp check Start: 05-30-2024 End: 05-30-2024 Patient encounter procedure 05/30/2024 2:40 PM EDT Office Visit Family [facility] [address] [place] [address] Judith Garcia APRN.APPLICATIONS SPECIALIST [address] [place] [address] 2 wk follow up (diuretics) Family [facility] Comment on above: 2 wk follow up (diuretics) Start: 05-17-2024 End: 05-17-2024 Patient encounter procedure 05/17/2024 8:30 AM EDT Appointment Radiology [address] [place] [address] Hospital discharge follow-up [Z09] Radiology Comment on above: Hospital discharge follow-up [Z09] Start: 05-16-2024 End: 08-15-2024 Comprehensive metabolic 2000 panel - Serum or Plasma [facility] Work Phone: Comment on above: Expected: 05/16/2024, Expires: Start: 05-16-2024 End: 08-15-2024 Lipid 1996 panel - Serum or Plasma [facility] Comment on above: Expected: 05/16/2024, Expires: Start: 05-16-2024 End: 08-15-2024 Natriuretic peptide.B prohormone N-Terminal [Mass/volume] in Serum or Plasma [facility] Comment on above: Expected: 05/16/2024, Expires: Start: 05-16-2024 End: 08-15-2024 Thyrotropin [Units/volume] in Serum or Plasma [facility] Comment on above: Expected: 05/16/2024, Expires: Start: 04-28-2024 Covid-19 Vaccine () Covid-19 Vaccine () [facility] Start: 02-22-2024 Advance Directive Discussion Advance Directive Discussion [facility] Start: 02-22-2024 Medicare Advantage Annual Wellness Visit Medicare Advantage Annual Wellness Visit [facility] Start: 12-12-2023 End: 12-12-2023 Nursing evaluation of patient and report 12/12/2023 11:20 AM EDT Nurse Visit Cardiology [address] [place] [phone] Wstr, Nurse Card Admin [facility] [address] [place] [phone] Shortness of breath [R06.02] Cardiology Comment on above: Shortness of breath [R06.02] Start: 12-12-2023 End: 12-12-2023 Patient encounter procedure Nuclear Medicine Comment on above: Shortness of breath [R06.02] Start: 12-05-2023 End: 12-05-2023 ambulatory PULM LAB [facility] Comment on above: Wheezing [R06.2]; 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]; SOB (shortness of breath) on exertion [R06.02]; Decreased activity tolerance [R68.89]; Productive cough [R05.8] Start: 12-05-2023 End: 12-05-2023 Nursing evaluation of patient and report 12/05/2023 8:15 AM EDT Nurse Visit Cardiology [address] [place] [phone] Wstr, Nurse Card Admin [facility] [address] [place] [address] Shortness of breath [R06.02] Cardiology Comment on above: Shortness of breath [R06.02] Start: 12-05-2023 End: 12-05-2023 Patient encounter procedure Nuclear Medicine Comment on above: Shortness of breath [R06.02] Wheezing [R06.2]; As thma-COPD overlap syndrome (HCC) [J44.89]; SOB (shortness of breath) on exertion [R06.02]; Decreased activity tolerance [R68.89]; Productive cough [R05.8] Start: 11-29-2023 End: 11-29-2023 Patient encounter procedure 11/29/2023 7:00 AM EDT Office Visit [facility] [place] [address] [place] [address] Judith Garcia APRN.APPLICATIONS SPECIALIST [address] [place] [address] annual check up [facility] [place] Comment on above: annual check up Start: 11-23-2023 End: 11-23-2023 Patient encounter procedure Orthopaedics Comment on above: kobi hip pain (both hips replaced in past outside of [facility]) b hip Start: 11-18-2023 Covid-19 Vaccine (6 - Pfizer series) Covid-19 Vaccine (6 - Pfizer series) [facility] Comment on above: Postponed from 04/03/2022 (Declined at t his time) Start: 11-18-2023 Urine microalbumin profile DTaP,Tdap,Td Vaccine (1 - Tdap) [facility] Comment on above: Postponed from 11/12/2017 (Declined at t his time) Start: 11-14-2023 DIABETES SCREEN DIABETES SCREEN [facility] Start: 11-02-2023 End: 02-01-2024 25-hydroxyvitamin D3 [Mass/volume] in Serum or Plasma VITAMIN D 25 HYDROXY Lab Routine Fatigue, unspecified type Atrial fibrillation, unspecified type (HCC) Vitamin D deficiency Expected: 11/02/2023, Expires: 02/01/2024 [facility] Comment on above: Expected: 11/02/2023, Expires: 4 Start: 11-02-2023 End: 02-01-2024 CBC W Auto Differential panel - Blood COMPLETE BLOOD COUNT AND DIFFERENTIAL Lab Routine Fatigue, unspecified type Atrial fibrillation, unspecified type (HCC) Dyslipidemia Expected: 11/02/2023, Expires: 02/01/2024 [facility] Work Phone: Comment on above: Expected: 11/02/2023, Expires: 4 Start: 11-02-2023 End: 02-01-2024 Cobalamin (Vitamin B12) [Mass/volume] in Serum or Plasma VITAMIN B12 Lab Routine Fatigue, unspecified type Atrial fibrillation, unspecified type (HCC) Expected: 11/02/2023, Expires: 02/01/2024 [facility] Comment on above: Expected: 11/02/2023, Expires: Start: 11-02-2023 End: 02-01-2024 Comprehensive metabolic 2000 panel - Serum or Plasma COMPREHENSIVE METABOLIC PANEL Lab Routine Atrial fibrillation, unspecified type (HCC) Expected: 11/02/2023, Expires: 02/01/2024 [facility] Comment on above: Expected: 11/02/2023, Expires: 4 Start: 11-02-2023 End: 02-01-2024 Hemoglobin A1c in Blood HEMOGLOBIN A1C Lab Routine Atrial fibrillation, unspecified type (HCC) Hyperglycemia Expected: 11/02/2023, Expires: 02/01/2024 [facility] Comment on above: Expected: 11/02/2023, Expires: Start: 11-02-2023 End: 02-01-2024 Iron and Iron binding capacity panel - Serum or Plasma IRON AND TIBC Lab Routine Fatigue, unspecified type Atrial fibrillation, unspecified type (HCC) Expected: 11/02/2023, Expires: 02/01/2024 [facility] Comment on above: Expected: 11/02/2023, Expires: Start: 11-02-2023 End: 02-01-2024 Lipid 1996 panel - Serum or Plasma LIPID PANEL BASIC Lab Routine Atrial fibrillation, unspecified type (HCC) Dyslipidemia Expected: 11/02/2023, Expires: 02/01/2024 [facility] Comment on above: Expected: 11/02/2023, Expires: 4 Start: 11-02-2023 End: 02-01-2024 Magnesium [Mass/volume] in Serum or Plasma MAGNESIUM Lab Routine Fatigue, unspecified type Atrial fibrillation, unspecified type (HCC) Expected: 11/02/2023, Expires: 02/01/2024 [facility] Comment on above: Expected: 11/02/2023, Expires: 4 Start: 11-02-2023 End: 02-01-2024 PSA/PROSTATE SPECIFIC ANTIGEN SCREENING PSA/PROSTATE SPECIFIC ANTIGEN SCREENING Lab Routine BPH with obstruction/lower urinary tract symptoms Screening for prostate cancer Expected: 11/02/2023, Expires: 02/01/2024 [facility] Comment on above: Expected: 11/02/2023, Expires: Start: 11-02-2023 End: 02-01-2024 Thyrotropin [Units/volume] in Serum or Plasma THYROID STIMULATING HORMONE Lab Routine Fatigue, unspecified type Atrial fibrillation, unspecified type (HCC) Expected: 11/02/2023, Expires: 02/01/2024 [facility] Comment on above: Expected: 11/02/2023, Expires: Start: 11-02-2023 End: 02-01-2024 Thyroxine (T4) free [Mass/volume] in Serum or Plasma T4 FREE/FREE THYROXINE Lab Routine Fatigue, unspecified type Atrial fibrillation, unspecified type (HCC) Expected: 11/02/2023, Expires: 02/01/2024 [facility] Comment on above: Expected: 11/02/2023, Expires: Start: 11-01-2023 End: 01-31-2024 CBC W Auto Differential panel - Blood COMPLETE BLOOD COUNT AND DIFFERENTIAL Lab Routine Permanent atrial fibrillation (HCC) Expected: 11/01/2023, Expires: 01/31/2024 [facility] Work Phone: Comment on above: Expected: 11/01/2023, Expires: Start: 10-23-2023 Influenza vaccination Influenza Vaccine (#1) [facility] Start: 09-26-2023 End: 09-11-2024 Echocardiography ECHO Cardiology Routine Shortness of breath Expected: 09/26/2023, Expires: 09/11/2024 [facility] Comment on above: Expected: 09/26/2023, Expires: Start: 09-26-2023 End: 10-11-2024 NM Heart Perfusion W multiple states of exercise NM CARDIAC PERF STRESS/EXERCISE Radiology Routine Shortness of breath Expected: 09/26/2023, Expires: 10/11/2024 [facility] Comment on above: Expected: 09/26/2023, Expires: Start: 09-26-2023 End: 09-26-2023 Patient encounter procedure 09/26/2023 11:20 AM EDT Office Visit Cardiology [address] [place] [address] Shortness of breath [R06.02] Cardiology Comment on above: Shortness of breath [R06.02] Start: 09-12-2023 End: 09-07-2024 ECG COMPLETE [facility] Work Phone: Comment on above: Expected: 09/12/2023, Expires: Start: 09-12-2023 End: 09-12-2023 Patient encounter procedure 09/12/2023 10:40 AM EDT Office Visit Cardiology [address] [place] [phone] Analisa Nicole MD [address] [facility], [address] [place] [address] est care/ transfer from Dr. Mcintosh Cardiology Comment on above: est care/ transfer from Dr. Mcintosh Start: 02-21-2023 Advance Directive Discussion Advance Directive Discussion [facility] Start: 02-21-2023 Behavioral Health Screening Behavioral Health Screening [facility] Start: 02-21-2023 Depression Assessment Depression Assessment [facility] Start: 10-22-2022 Influenza vaccination INFLUENZA (#1) [facility] Start: 04-03-2022 COVID-19 VACCINE (6 - Pfizer series) COVID-19 VACCINE (6 - Pfizer series) [facility] Start: 02-21-2022 ADVANCE DIRECTIVE DISCUSSION ADVANCE DIRECTIVE DISCUSSION [facility] Start: 02-21-2022 DEPRESSION ASSESSMENT DEPRESSION ASSESSMENT [facility] Start: 10-22-2021 Influenza vaccination INFLUENZA (#1) [facility] Start: 03-19-2021 COVID-19 VACCINE (4 - Booster for Pfizer series) COVID-19 VACCINE (4 - Booster for Pfizer series) [facility] Start: 02-21-2021 ADVANCE DIRECTIVE DISCUSSION ADVANCE DIRECTIVE DISCUSSION [facility] Start: 02-21-2021 DEPRESSION ASSESSMENT DEPRESSION ASSESSMENT [facility] Start: 03-02-2019 SHINGRIX VACCINE (2 of 2) SHINGRIX VACCINE (2 of 2) [facility] Start: 11-12-2017 Urine microalbumin profile [facility] Start: 1954 Anxiety Screening Anxiety Screening [facility] Start: 1954 Depression Screening Depression Screening [facility] Start: 1946 Diabetic foot examination Diabetic Foot Exam [facility] Start: 1946 Glaucoma screening Dilated Retinal Exam [facility] Start: 1946 Hepatitis B screening Urine Albumin:Creatinine Ratio [facility] Bacteria identified in Urine by Culture URINE CULTURE Microbiology Routine Poor urinary stream Ordered: 07/20/2022 [facility] Work Phone: Comment on above: Ordered: 07/20/2022 Bacteria identified in Urine by Culture URINE CULTURE Microbiology Routine Urinary incontinence, unspecified type 08/17/2022 10:50 AM EDT [facility] Work Phone: Bacteria identified in Urine by Culture URINE CULTURE Microbiology Routine Weak urinary stream 10/12/2022 12:50 PM EDT [facility] Work Phone: End: 12-28-2024 CT Chest WO contrast CT CHEST WO IVCON Radiology Routine Wheezing Asthma-COPD overlap syndrome (HCC) SOB (shortness of breath) on exertion Decreased activity tolerance Productive cough 1 Occurrences starting 11/29/2023 until 12/28/2024 [facility] Work Phone: Comment on above: 1 Occurrences starting 11/29/2023 until 12/28/2024 CT Chest WO contrast CT CHEST WO IVCON Radiology Routine Wheezing Asthma-COPD overlap syndrome (HCC) SOB (shortness of breath) on exertion Decreased activity tolerance Productive cough 12/05/2023 11:51 AM EDT [facility] Work Phone: Cystourethroscopy [facility]PANEND[facility] Procedures Routine Bladder neck stricture Ordered: 07/20/2022 [facility] Work Phone: Comment on above: Ordered: 07/20/2022 Cystourethroscopy [facility] Procedures Routine Weak urinary stream Ordered: 10/19/2022 [facility] Work Phone: Comment on above: Ordered: 10/19/2022 Cystourethroscopy [facility] Procedures Routine Bladder neck stricture Ordered: 06/24/2023 [facility] Work Phone: Comment on above: Ordered: 06/24/2023 End: 07-27-2023 ECG COMPLETE ECG COMPLETE ECG Routine Preoperative clearance 1 Occurrences starting 07/26/2022 until 07/27/2023 [facility] [employer] Work Phone: Comment on above: 1 Occurrences starting 07/26/2022 until 07/27/2023 ECG COMPLETE ECG COMPLETE ECG 07/26/2022 9:57 AM EDT [facility] End: 09-05-2025 Echocardiography ECHO Cardiology Routine Permanent atrial fibrillation (HCC) Hypertension, essential Pulmonary hypertension (HCC) 1 Occurrences starting 09/05/2024 until 09/05/2025 [facility] Work Phone: Comment on above: 1 Occurrences starting 09/05/2024 until 09/05/2025 End: 12-28-2024 LUNG VOLUMES LUNG VOLUMES PFT Routine Wheezing Asthma-COPD overlap syndrome (HCC) SOB (shortness of breath) on exertion Decreased activity tolerance Productive cough 1 Occurrences starting 11/29/2023 until 12/28/2024 [facility] Comment on above: 1 Occurrences starting 11/29/2023 until 12/28/2024 Patient Education ED Head Injury (Adult) ED Laceration, All Closures [facility] Work Phone: End: 12-28-2024 SPIROMETRY - BASELINE AND POST DILATOR SPIROMETRY - BASELINE AND POST DILATOR PFT Routine Wheezing Asthma-COPD overlap syndrome (HCC) SOB (shortness of breath) on exertion Decreased activity tolerance Productive cough 1 Occurrences starting 11/29/2023 until 12/28/2024 [facility] Comment on above: 1 Occurrences starting 11/29/2023 until 12/28/2024 End: 06-15-2025 US Lower extremity vein - bilateral US DVT LOWER BILATERAL Radiology Routine Hospital discharge follow-up Bilateral leg edema 1 Occurrences starting 05/16/2024 until 06/15/2025 [facility] Comment on above: 1 Occurrences starting 05/16/2024 until 06/15/2025 End: 12-09-2024 XR HIP BILATERAL 5V PEL/AP/LAT EACH HIP XR HIP BILATERAL 5V PEL/AP/LAT EACH HIP Radiology Routine Bilateral hip pain 1 Occurrences starting 11/10/2023 until 12/09/2024 [facility] Comment on above: 1 Occurrences starting 11/10/2023 until 12/09/2024 End: 12-09-2024 XR Knee - right 4 Views XR KNEE GENERAL 4V AP BOTH/PA BOTH/LAT/MERC RIGHT Radiology Routine Bilateral hip pain 1 Occurrences starting 11/10/2023 until 12/09/2024 [facility] Work Phone: Comment on above: 1 Occurrences starting 11/10/2023 until 12/09/2024 End: 12-22-2024 XR Lumbar spine AP and Lateral XR LUMBAR LIMITED 2V AP/LAT Radiology Routine 1 Occurrences starting 11/23/2023 until 12/22/2024 [facility] Work Phone: Comment on above: 1 Occurrences starting 11/23/2023 until 12/22/2024 XR Lumbar spine AP a nd Lateral XR LUMBAR LIMITED 2V AP/LAT Radiology Routine 11/23/2023 8:59 AM EDT [facility] Immunizations Immunization Date Immunization Notes Care Provider Sandy echols 11-30-2023 zoster vaccine recombinant Pulm Wstr Work Phone: [facility] 10-30-2023 influenza virus vacc ine, unspecified formulation Dipak Aguilar DO Work Phone: [facility] 05-08-2023 COVID-19 vaccine, ag e 12+ yr, season (PFIZER-BIONTECH) Sharath Issa MD Work Phone: [facility] 11-27-2022 COVID-19 vaccine, ag e 12+ yr, season (PFIZER-BIONTECH) Mini Saldaña RN [facility] 11-04-2022 influenza (HD-IIV4) vaccine, age 65+ yr, high dose, quadrivalent, PF (FLUZONE HIGH-DOSE) Radha Berman FOUNTAIN JERK.APPLICATIONS SPECIALIST Work Phone: [facility] [facility] 11-04-2022 respiratory syncytia l virus (RSV) vaccine, adjuvanted (AREXVY) Radha Berman APRN.APPLICATIONS SPECIALIST Work Phone: [facility] 11-04-2022 influenza virus vacc ine, unspecified formulation Analisa Nicole MD Work Phone: [facility] 12-01-2021 COVID-19 booster vaccine, age 12+ yr, bivalent (PFIZER-BIONTECH) [place] Nurse Work Phone: [facility] Work Phone: 11-16-2021 influenza, high-dose , quadrivalent vaccine (FLUZONE HIGH DOSE QUADRIVALENT) [place] Nurse Work Phone: [facility] Work Phone: 11-17-2020 COVID-19 vaccine, ag e 12+ yr (PFIZER-BIONTECH - PURPLE TOP) No [facility] 11-12-2020 influenza, high-dose , quadrivalent vaccine (FLUZONE HIGH DOSE QUADRIVALENT) No [facility] 04-16-2020 COVID-19 vaccine, ag e 12+ yr (PFIZER-BIONTECH - PURPLE TOP) No [facility] Work Phone: 03-18-2020 COVID-19 vaccine, ag e 12+ yr (PFIZER-BIONTECH - PURPLE TOP) No [facility] Work Phone: 11-12-2019 influenza, high-dose , quadrivalent vaccine (FLUZONE HIGH DOSE QUADRIVALENT) No [facility] 01-05-2019 zoster vaccine recombinant No [facility] 11-30-2018 Influenza virus vaccine [facility] 11-10-2018 influenza, high dose seasonal, preservative-free No [facility] 11-11-2017 influenza, high dose seasonal, preservative-free No [facility] 11-11-2017 tetanus and diphther ia toxoids, adsorbed, preservative free, for adult use (5 Lf of tetanus toxoid and 2 Lf of diphtheria toxoid) No [facility] 11-10-2016 influenza, high dose seasonal, preservative-free No [facility] Work Phone: 11-10-2015 influenza, high dose seasonal, preservative-free No [facility] Work Phone: 11-07-2014 influenza, high dose seasonal, preservative-free No [facility] 11-07-2014 pneumococcal conjuga te vaccine, 13 valent No [facility] 10-08-2013 pneumococcal polysaccharide vaccine, 23 valent No [facility] 11-20-2012 influenza virus vacc ine, unspecified formulation No [facility] 11-20-2011 influenza virus vacc ine, unspecified formulation No [facility] Work Phone: 08-17-2010 tetanus and diphther ia toxoids, adsorbed, preservative free, for adult use (2 Lf of tetanus toxoid and 2 Lf of diphtheria toxoid) No [facility] 12-19-2006 influenza virus vacc ine, unspecified formulation No [facility] Work Phone: 05-23-1999 pneumococcal polysaccharide vaccine, 23 valent No [facility] Work Phone: Payers Date Payer Category Payer Self-pay 2009 Medicare [id number] 2009 Medicare AETNA MEDICARE A ETNA MEDICARE PPO [id number] 2009-Present [phone] [address] [place] [address] PPO [id number] 2009 Medicare AETNA MEDICARE A ETNA MEDICARE PPO [id number] 2009-Present [phone] [address] [place] [address] PP [id number] 2009 Medicare (Managed Care) [facility] [id number] 2009 Medicare [id number] 1936 Unknown [id number] Unknown [id number] Unknown [id number] Unknown [id number] Unknown [id number] Unknown [id number] Social History Date Type Detail Facility Start: 09-26-2018 End: 11-23-2023 Tobacco smoking status NHIS Ex-smoker [facility] Work Phone: Start: 04-25-1950 End: 09-26-1973 History of tobacco use Current smoker [facility] Work Phone: Start: 04-25-1950 End: 09-26-1973 History of tobacco use Cigarette Smoker [facility] Work Phone: Start: 09-26-2018 End: 11-23-2023 Tobacco use and exposure Smokeless tobacco non-user [facility] Work Phone: Start: 10-13-2020 End: 09-25-2024 Alcohol intake Current drinker of alcohol (finding) [facility] Start: 11-06-2019 History SDOH Alcohol Frequency 4 [facility] Start: 11-06-2019 History SDOH Alcohol Std Drinks 1 [facility] Start: 11-06-2019 History SDOH Social Connections Phone 3 [facility] Start: 11-06-2019 History SDOH Social Connections Get Together 5 [facility] Start: 11-06-2019 History SDOH Social Connections Sikhism 2 [facility] Start: 11-06-2019 History SDOH Physica l Activity DPW 6 [facility] Start: 11-06-2019 Education 20 [facility] Start: 09-26-2018 End: 12-08-2021 Tobacco Comment I was a light smoker, 1 pack every 3 days. [facility] Start: 1935 Sex Assigned At Male C [facility] Start: 09-13-2020 End: 12-08-2021 Exposure to SARS-CoV-2 (event) Not sure [facility] Start: 06-29-2022 End: 07-29-2022 Cigarettes smoked current (pack per day) - Reported 0.3 [facility] Start: 07-29-2022 Alcohol Comment occassional-on ce weekly [facility] Start: 11-06-2019 End: 06-29-2022 Social connection and isolation panel [facility] Do you belong to any clubs or organizations such as faith groups, unions, fraternal or athletic groups, or school groups? Yes [facility] Are you now , , , , never or living with a partner? [facility] How often to you hav e a drink containing alcohol? 2-3 time sa week [facility] How many standard dr inks containing alcohol do you have on a typical day? 1 or 2 [facility] How often do you hav e 6 or more drinks on 1 occasion? Never [facility] Start: 01-23-2012 Adult Depression Screening Assessment 0 [facility] Work Phone: Do you feel stress - tense, restless, nervous, or anxious, or unable to sleep at night because your mind is troubled all the time - these days [OSQ] Not at all [facility] (I/We) worried wheth er (my/our) food would run out before (I/we) got money to buy more. Never true [facility] In the past 12 month s, was there a time when you were not able to pay the mortgage or rent on time? No [facility] Start: 08-17-2020 Gender identity Identifies as male gender (finding) [facility] Do you feel stress - tense, restless, nervous, or anxious, or unable to sleep at night because your mind is troubled all the time - these days [OSQ] Only a little [facility] Work Phone: Start: 09-05-2019 Alcohol Alcohol [place] Start: 09-05-2019 Lives Lives [facility] [facility] Procedure Code Equipment Code Equipment Origin al Text Equipment Identifier Dates Test blood sugar (s) 1 times daily. 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 Dx: Type 2 DM - Controlled E11.9 Insulin: Yes [id number] Start: 05-31-2024 Functional Status Date Assessment Result Facility 07-29-2022 Are you deaf, or do you have serious difficulty hearing No 07/29/2022 3:15 PM EDT Alejandra Freedman APRN.ESTIVEN No [facility] 07-29-2022 Are you blind, or do you have serious difficulty seeing, even when wearing glasses No 07/29/2022 3:15 PM Alejandra Emery APRN.APPLICATIONS SPECIALIST No [facility] 07-29-2022 Do you have serious difficulty walking or climbing stairs No 07/29/2022 3:15 PM EDT Alejandra Freedman APRN.APPLICATIONS SPECIALIST No [facility] 07-29-2022 Do you have difficul ty dressing or bathing No 07/29/2022 3:15 PM EDAlejandra Camacho APRN.APPLICATIONS SPECIALIST No [facility] 07-29-2022 Because of a physica l, mental, or emotional condition, do you have difficulty doing errands alone such as visiting a physician's office or shopping No 07/29/2022 3:15 PM Alejandra Emery APRN.APPLICATIONS SPECIALIST No [facility] Mental Status Date Assessment Result Facility 07-29-2022 Because of a physica l, mental, or emotional condition, do you have serious difficulty concentrating, remembering, or making decisions No 07/29/2022 3:15 PM EDT Alejandra Freedman APRN.APPLICATIONS SPECIALIST No [facility] Clinical Notes 10-26-2018 to 10-10-2024 Telephone Encounter - Macy Fraser RN - 10/10/2024 9:14 AM EDTTelephone Encounter - Macy Fraser RN - 10/10/2024 9:14 AM EDTTelephone Encounter - Gabrielle Friedman RN - 10/10/2024 8:19 AM EDT Note Date & Type Note Facility 10-10-2024 Telephone encounter Note Pt called and is notified of providers results and instructions. Pt voices understanding. I let him know that provider sent a message Dr Nicole's office for advice. Macy Fraser RN [facility] 10-10-2024 Miscellaneous Notes Pt called and is notified of providers results and instructions. Pt voices understanding. I let him know that provider sent a message Dr Nicole's office for advice. Macy Fraser RN Per Dr. Aguilar Pt. can take Hydralazine 3 x day prn Bp elevation per parameters. Message left to return call. Message sent to Dr. Nicole for advice and another daily med option per Dr. Aguilar. Patient asking Dr. Aguilar, or other team provider, to advise him today regarding his elevated BP within the last 24 hours. Has history of A-Fib, CVA, HTN, and others. Same day appt offered. Pt would like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 results found for: HGBA1C TSH: No results found for: TSHREFL Prior Cardiac Testing EKG Assessment and Plan: 88 years old gentleman with chronic persistent atrial fibrillation ASSESSMENT/PLAN: 1. Screening for ischemic heart disease - ICD9: V81.0, ICD10: Z13.6 (primary diagnosis) Patient shortness of breath likely out of proportion of his lung disease I am recommending risk stratification with echocardiography and treadmill nuclear stress test to rule out the possibility of underlying obstructive coronary disease - ECG COMPLETE 2. Shortness of breath - ICD9: 786.05, ICD10: R06.02 Shortness of breath likely multifactorial - ECHO - PERFLUTREN LIPID MICROSPHERES 1.1 MG/ML INJECTION IN NS 10 ML - SODIUM CHLORIDE 0.9 % (FLUSH) INJECTION SYRINGE - NM CARDIAC PERF STRESS/EXERCISE 3. Permanent atrial fibrillation (HCC) - ICD9: 427.31, ICD10: I48.21 Rate control and anticoagulation with Alejo Nicole MD Follow up planning: ONE YEAR Electronically signed by Analisa Nicole MD on September 12, 2023, 11:01 AM The above note was partially created using a dictation recognition software. A reasonable attempt has been made to correct any errors. documented in this encounter [facility] 06-24-2023 Instructions Sharath Issa MD - 06/24/2023 8:48 AM EDT Images from the original note were not included. INSTRUCTIONS FROM DR. ISSA: call and let us know what urology medications you have as you brought in the big pill but I am not sure what that is You had history of being on Uroxatrol and Detrol you can stop the straight catheterizations as it looks like tissues are stable now PATIENT INFORMATION: Erectile Dysfunction: Overview Erectile dysfunction (ED) is the inability to get and keep an erection firm enough for sexual intercourse. Estimates suggest that one of every 10 men will suffer from ED at some point during his lifetime. It is important to understand that in most cases, ED is a symptom of another, underlying problem. ED is not considered normal at any age, and may be associated with other problems that interfere with sexual intercourse, such as lack of desire and problems with orgasm and ejaculation. How common is erectile dysfunction? Approximately one in 10 adult males will suffer from ED on a long-term basis. Many men do experience occasional failure to achieve erection, which can occur for a variety of reasons, such as drinking too much alcohol, stress, relationship problems, or from being extremely tired. The failure to get an erection less than 20% of the time is not unusual and typically does not require treatment. However, the failure to achieve an erection more than 50% of the time generally means that there is a problem and treatment is needed. ED does not have to be a part of getting older. While it is true that some older men may need more stimulation, they should still be able to achieve an erection and enjoy intercourse. What causes erectile dysfunction? ED can be caused by a number of factors, including: Vascular disease: Blood supply to the penis can become blocked or narrowed as a result of vascular disease such as atherosclerosis (hardening of the arteries). Neurological disorders (such as multiple sclerosis): Nerves that send impulses to the penis can become damaged from stroke, diabetes, or other causes. Psychological states: These include stress, depression, lack of stimulus from the brain, and performance anxiety. Trauma: An injury could contribute to symptoms of ED. Chronic illness, certain medications, and a condition called Peyronie's disease can also cause ED. Operations for the prostate, bladder, and colon cancer may also be contributing factors. Medications which may cause erectile dysfunction Erectile dysfunction (ED) is a common side effect of a number of prescription drugs. While these medications may treat a disease or condition, in doing so they can affect a man's hormones, nerves or blood circulation, resulting in ED or increasing the risk of ED. If you experience ED and think that it may be a result of the medication you are using, DO NOT stop taking the medication. If the problem persists, contact your doctor and he or she may be able to prescribe a different medication. Common medications that may list ED as a potential side effect include: Diuretics (pills that cause increase urine flow) Antihypertensives (high blood pressure drugs) Antihistamines Antidepressants Parkinson's disease drugs Antiarrhythmics (drug for irregular heart action) Tranquilizers Muscle relaxants Nonsteroidal anti-inflammatory drugs Histamine H2-receptor antagonists Hormones Chemotherapy medications Prostate cancer drugs Anti-seizure medications Other substances or drugs that can cause or lead to ED include these recreational and frequently abused drugs: Alcohol Amphetamines Barbiturates Cocaine Marijuana Methadone Nicotine Opiates These drugs not only affect and often suppress the central nervous system, but can also cause serious damage to the blood vessels, leading to permanent ED. Can ED be prevented? For people who are at risk of developing ED due to personal behavior, steps may be taken to try to prevent its occurrence. However, other causes may not be preventable. A number of studies now suggest a link between ED and obesity, high cholesterol, hypertension, diabetes, and heart disease. The following recommendations may help prevent ED or improve the problem if it is already present: Eat a healthy diet. A diet that limits saturated fat intake and includes several portions of fruits, vegetables, and whole grains can benefit men with ED. Reduce cholesterol. High cholesterol can harden, narrow, or block the arteries (atherosclerosis) leading to the penis. Men can lower cholesterol through diet, exercise, and medication. Maintain a healthy weight. Exercise regularly. Regular exercise may reduce the risk of ED. Choose exercises that you enjoy and will make a regular part of your day. In addition to reducing the risk of ED, exercise also can help you manage stress. Check with your doctor before starting any exercise program. What doctors treat erectile dysfunction? The type of hospital medical biller who treats ED will depend on the cause of the problem. Based on your family's medical history, as well as your own medical history and current health, your doctor may treat you with oral medications (Viagra , Levitra , Cialis ). If these options fail, you may be referred to a urologist who can assist with other non-surgical options such as vacuum device or injections or surgical treatment options. If needed, your doctor may also refer you to a psychologist specializing in sexual dysfunction. What should I do if I am having problems achieving/keeping an erection? If you suspect you have erectile dysfunction, please see your primary care physician or a urologist. He or she can perform tests to find out what is causing your problem and refer you to a specialist if needed. Once the cause is identified, there are several treatment options to choose from. Does insurance cover erectile dysfunction treatment? Insurance coverage for ED depends on the type of treatment prescribed and whether your insurance covers sexual dysfunction at all. Speak with your insurance provider to determine if the option you are considering will be covered. How is erectile dysfunction treated? ED can be treated in many ways, including: Oral medications Sex therapy Penile injections Vacuum devices Intraurethral medication Surgery (penile implant) Each type has its own pros and cons. Discuss your options with your doctor to determine the best treatment for you. The first step to treating ED is to find the underlying cause. Then the appropriate treatment can begin. There are a number of non-surgical and surgical options that can help a man regain normal sexual function. What non-surgical treatments are there for ED? Education and communication Education about sex, sexual behaviors, and sexual responses may help a man overcome his anxieties about sexual dysfunction. Talking honestly with your partner about your needs and concerns may also help to overcome many barriers to a healthy sex life. Medication Medications such as sildenafil (Viagra), vardenafil (Levitra), or tadalafil (Cialis) may help improve sexual function in men by increasing blood flow to the penis. Men who are on medicines that contain nitrates such as nitroglycerine should not take oral ED medications. The combination of nitrates and these specific medications can cause low blood pressure (hypotension). The most common side effects of these medications are indigestion, nasal congestion, flushing, headaches, and a temporary visual disturbance. Ashwaganda and Arginine are supplements that may help Mechanical aids Aids such as vacuum devices and penile constriction rings serve as erectile aids for some men. A vacuum constriction device (left) is a cylinder that is placed over the penis. The air is pumped out of the cylinder, which draws blood into the penis and causes an erection. The erection is maintained by slipping a band off of the base of the cylinder and onto the base of the penis. The band can stay in place for up to 30 minutes. The vacuum device can be safely used to treat most causes of erectile failure. Lack of spontaneity, discomfort, and cumbersomeness of the device seem to be the biggest concerns of patients. Penile injection therapy (intracavernosal injection therapy) Men are taught how to inject medications directly into the erection chambers of the penis to create an erection. Injection therapy is effective in treating a wide variety of erection issues caused by blood vessel, nerve, and psychological conditions. Using a tiny needle and syringe, the man injects a small amount of medicine into the side of his penis. The medicine relaxes the blood vessels, allowing blood to flow into the penis. This treatment has been widely used and accepted since the early 1980s. The three most common medicines are prostaglandin E1 (alprostadil), papaverine (Papacon ), and phentolamine (Regitine ). The most common side effects are pain and penile scarring (fibrosis). In extremely rare cases, patients with cerebral and vascular disease or severe cardiovascular diseases might not be able to tolerate the dizziness and high blood pressure occasionally caused by injection therapy. A painful erection that lasts longer than two to three hours is called priapism and may occur with injection therapy. This can be lessened with proper dosing and by following the treatment guidelines. Psychology and sex therapies Psychological causes may contribute to erectile failure even when there is a clear organic cause. Therapy with a trained counselor can help a person address feelings of anxiety, fear, or guilt that may have an impact on sexual dysfunction. Sex therapy can be beneficial to most men when counseling is provided by a skilled sex therapist. Sex therapy also helps a man's partner accept and cope with the problems. A patient whose ED has a clear psychological cause should receive sex therapy counseling before any invasive treatments are pursued. Hormone Low hormone levels may play a role in ED. Hormone replacement in the form of topical gels, creams, patches, injections, and pellets are only used after physician evaluation. What are surgical treatment options? Penile prosthesis surgery Inflatable penile prostheses are implanted during outpatient surgery. Once they are part of a man's body, they enable him to have an erection whenever he desires. The use of a prosthesis preserves penile sensation, orgasm, and ejaculation for most men. The most commonly used penile implant consists of a pair of inflatable cylinders that are surgically implanted in the erection chambers of the penis. The cylinders are connected through tubing to a reservoir of fluid under the lower abdominal muscles, and to a pump inside the scrotal sac. To inflate the penile prosthesis, the man compresses the pump a number of times to transfer fluid from the reservoir to the cylinders. This causes the penis to become erect. When inflated, the prosthesis makes the penis stiff and thick, which is very similar to a natural erection. A penile prosthesis does not change the sensation on the skin of the penis or a man's ability to achieve orgasm or ejaculate. Pressing on a deflation valve attached to the pump returns the fluid to the reservoir, which returns the penis to a flaccid state. The surgical procedure is performed through one or two small incisions that are generally well hidden. Other people will be unable to tell that a man has an inflatable penile prosthesis -- most men would not be embarrassed in a locker room or public restroom. Complications following surgery are not common, but primarily include infection and mechanical device failure. Approximately 95% of penile implant surgeries are successful in producing erections that enable men to have sexual intercourse. Moreover, patient satisfaction questionnaires show that up to 90% of men who have undergone penile implants say they would choose the surgery again, and overall satisfaction ratings are higher than those reported by men using oral medication or penile injection therapy. documented in this encounter [facility] 06-24-2023 Note HNO ID: [id number] Author: SHARATH ISSA MD Service: ? Author Type: Physician Type: Procedures Filed: 06/27/2023 08:06 Note Text: CYSTOSCOPY PROCEDURE NOTE: 42035-fyhmp/fulg 37907-mwprk,bx 10969--tlmig/complex 49888--hzubr 29999--jeljtjtv cath 65559-sdjzd/dilate BLADDER IRRIGATION, SIMPLE, LAVAG [[id number] Juan Jose Foster is a 88 year old male who presents for cystoscopy. Pt ID verified with patient: yes Procedure verified with patient: yes Procedure confirmed with physician and user support analyst: yes Special equipment-cystoscope Dx: UNIVERSAL PROTOCOL / SAFETY CHECKLIST Procedure to be Performed: cysto Sign In: A Moment of CARE was completed. Personnel directly involved with the procedure wore the appropriate PPE (Personal Protective Equipment). Patient/Surrogate Stated/Verified: PATIENT VERIFIED(optional for EMERGENT procedures): Patient name, Date of , Relevant allergies, and The intended procedure Time Out Communication: Intended patient and procedure match the source documents. Consent documented and matches the intended procedure. Relevant labs, photos, and/or imaging studies have been reviewed. Correct side/site marked and visible. Medications required for procedure verified. Fire risk assessed and interventions discussed. No implant(s) inserted. Sign Out: SIGN OUT (optional for EMERGENT procedures): All specimen containers correctly labeled. All instruments, equipment, possible retained foreign bodies accounted for. Post-procedure follow-up management communicated and Plan of Care Visit completed when applicable. Sharath Issa MD Antibiotic was-Bactrim The benefits, risks, alternatives of the cystoscopy procedure and personnel were discussed with the patient. The verbal consent was obtained and the patient agrees to proceed. Procedure: The patient was placed on the procedure table in the supine position and prepped and draped in the usual sterile fashion. 2% Lidocaine Jelly was placed per urethra as an anesthetic in the standard fashion. Once adequate local anesthesia was achieved, the tip of the flexible cystoscope was carefully placed into the urethra under direct visual guidance. -cystoscopy-urethra without stricture and get through prostate apex and mid prostate see narrow area with ledge at 6:00 once again and distal snug so I cannot get the scope through it easily but I can see through in the bladder neck appears open At the conclusion of the procedure, the flexible cystoscope was removed atraumatically. The patient tolerated the procedure without complications. Patient was given standard post-procedure instructions, and was directed to complete the course of oral antibiotics and increase oral fluid intake as directed. Sharath Issa MD See progress note for plans Sharath Issa MD [facility] 06-24-2023 Procedure note Procedure(s): CYSTOSCOPY Pre-Procedure Diagnose(s): Bladder neck contracture Post-Procedure Diagnose(s): Bladder neck contracture CYSTOSCOPY PROCEDURE NOTE: [id number]-ihefk/fulg 84741-kzwkg,bx 45383--qrryq/complex 01710--amopa 50360--coomriiw cath 81666-fdfbc/dilate BLADDER IRRIGATION, SIMPLE, LAVAG [[id number] Juan Jose Foster is a 88 year old male who presents for cystoscopy. Pt ID verified with patient: yes Procedure verified with patient: yes Procedure confirmed with physician and user support analyst: yes Special equipment-cystoscope Dx: UNIVERSAL PROTOCOL / SAFETY CHECKLIST Procedure to be Performed: cysto Sign In: A Moment of CARE was completed. Personnel directly involved with the procedure wore the appropriate PPE (Personal Protective Equipment). Patient/Surrogate Stated/Verified: PATIENT VERIFIED(optional for EMERGENT procedures): Patient name, Date of , Relevant allergies, and The intended procedure Time Out Communication: Intended patient and procedure match the source documents. Consent documented and matches the intended procedure. Relevant labs, photos, and/or imaging studies have been reviewed. Correct side/site marked and visible. Medications required for procedure verified. Fire risk assessed and interventions discussed. No implant(s) inserted. Sign Out: SIGN OUT (optional for EMERGENT procedures): All specimen containers correctly labeled. All instruments, equipment, possible retained foreign bodies accounted for. Post-procedure follow-up management communicated and Plan of Care Visit completed when applicable. Sharath Issa MD Antibiotic was-Bactrim The benefits, risks, alternatives of the cystoscopy procedure and personnel were discussed with the patient. The verbal consent was obtained and the patient agrees to proceed. Procedure: The patient was placed on the procedure table in the supine position and prepped and draped in the usual sterile fashion. 2% Lidocaine Jelly was placed per urethra as an anesthetic in the standard fashion. Once adequate local anesthesia was achieved, the tip of the flexible cystoscope was carefully placed into the urethra under direct visual guidance. -cystoscopy-urethra without stricture and get through prostate apex and mid prostate see narrow area with ledge at 6:00 once again and distal snug so I cannot get the scope through it easily but I can see through in the bladder neck appears open At the conclusion of the procedure, the flexible cystoscope was removed atraumatically. The patient tolerated the procedure without complications. Patient was given standard post-procedure instructions, and was directed to complete the course of oral antibiotics and increase oral fluid intake as directed. Sharath Issa MD See progress note for plans Sharath Issa MD [facility] 06-24-2023 Procedure note Procedure(s): CYSTOSCOPY Pre-Procedure Diagnose(s): Bladder neck contracture Post-Procedure Diagnose(s): Bladder neck contracture CYSTOSCOPY PROCEDURE NOTE: [id number]-criiu/fulg 30778-cixuh,bx 45174--yzcss/complex 41228--vjomz 98552--cskveazg cath 51490-dvfon/dilate BLADDER IRRIGATION, SIMPLE, LAVAG [[id number] Juan Jose Foster is a 88 year old male who presents for cystoscopy. Pt ID verified with patient: yes Procedure verified with patient: yes Procedure confirmed with physician and user support analyst: yes Special equipment-cystoscope Dx: UNIVERSAL PROTOCOL / SAFETY CHECKLIST Procedure to be Performed: cysto Sign In: A Moment of CARE was completed. Personnel directly involved with the procedure wore the appropriate PPE (Personal Protective Equipment). Patient/Surrogate Stated/Verified: PATIENT VERIFIED(optional for EMERGENT procedures): Patient name, Date of , Relevant allergies, and The intended procedure Time Out Communication: Intended patient and procedure match the source documents. Consent documented and matches the intended procedure. Relevant labs, photos, and/or imaging studies have been reviewed. Correct side/site marked and visible. Medications required for procedure verified. Fire risk assessed and interventions discussed. No implant(s) inserted. Sign Out: SIGN OUT (optional for EMERGENT procedures): All specimen containers correctly labeled. All instruments, equipment, possible retained foreign bodies accounted for. Post-procedure follow-up management communicated and Plan of Care Visit completed when applicable. Sharath Issa MD Antibiotic was-Bactrim The benefits, risks, alternatives of the cystoscopy procedure and personnel were discussed with the patient. The verbal consent was obtained and the patient agrees to proceed. Procedure: The patient was placed on the procedure table in the supine position and prepped and draped in the usual sterile fashion. 2% Lidocaine Jelly was placed per urethra as an anesthetic in the standard fashion. Once adequate local anesthesia was achieved, the tip of the flexible cystoscope was carefully placed into the urethra under direct visual guidance. -cystoscopy-urethra without stricture and get through prostate apex and mid prostate see narrow area with ledge at 6:00 once again and distal snug so I cannot get the scope through it easily but I can see through in the bladder neck appears open At the conclusion of the procedure, the flexible cystoscope was removed atraumatically. The patient tolerated the procedure without complications. Patient was given standard post-procedure instructions, and was directed to complete the course of oral antibiotics and increase oral fluid intake as directed. Sharath Issa MD See progress note for plans Sharath Issa MD documented in this encounter [facility] 06-24-2023 Note HNO ID: [id number] Author: RINA SHEETS MA Service: ? Author Type: Director Machine Type: Progress Notes Filed: 06/27/2023 08:06 Note Text: Senior Vice President & General Counsel present:Rina Sheets MA [facility] 06-24-2023 Note HNO ID: [id number] Author: SHARATH ISSA MD Service: ? Author Type: Physician Type: Progress Notes Filed: 06/27/2023 08:06 Note Text: ESTABLISHED PATIENT OFFICE VISIT PATIENT INFO: Juan Jose Foster 88 year old HPI 06/24/2023 CC: cysto uses coude catheter and passing every day and that works fine On cystoscopy same as last visit and cannot get the scope through it and there is the 6:00 ledge mid prostate as before and all looks stable He will call and let us know what medications he is on because he brought in a pill that is round and somewhat thick and that gets stuck in his esophagus He thinks it is a prostate shrinking pill but I do not see that we have him on Proscar We just had him on Uroxatrol and Detrol but I do not see Detrol on med list He will call and let us know things look stable so I think he can stop the urethral catheter passages as given what I see could cause trauma and problems and things could just stay stable without catheterization and he agrees Complains of erectile dysfunction- Viagra and Cialis did not work well and discussed vacuum device for his penile injection therapy or prosthesis placement options etc. in detail He is not interested in any of those Past Urology Hx: 11/16/2022 CC: cysto I did urethral dilation and then saw the nurse on October 26 to learn intermittent catheterization/reviewed again and plans to do it daily Presents today for cystoscopy Patient is using coude catheter and able to pass it and feels maybe a little snug and that is working well for him and he is satisfied On cystoscopy there is a ledge at 6:00 in that is why the coude catheter most likely passes without problem and straight catheter might get hung up He is going back to [place] in a few weeks and he knows to reconnect with urology there if he has problems Could always consult with Dr. Summers or Dr. Yamile Trujillo at [facility] who are stricture specialists and he will hold off on that for now ;; 10/19/2022 CC: cysto Was doing great but 2 days ago stream got a lot worse and frequency and no gross hematuria or dysuria Remains on the Uroxatrol and Detrol and the Eliquis On cystoscopy recurrence of bladder neck contracture and is small hole and a little below it a couple small holes that I think I can see through the bladder also Discussed options and [facility] for [facility]oscopy and urethral dilation and probably Kern placement and he will hold his Levaquin for now Denies chest pain or shortness of breath Dipstick urine negative 09/14/2022 CC: cysto Patient remains on Eliquis and he likes the tolterodine and is voiding great and very happy and remains on Uroxatrol Cystoscopy today showed some repeat narrowing just distal to the bladder neck and the prostate and I was able to push the scope through it with a little pressure and dilate the area and he has minimal residual urine He will stay on usual medications and wants repeat cystoscopy in 3-4 weeks to see if it can heal open and might need periodic dilatation in the meantime 08/17/2022 CC: tur Status post transurethral section bladder neck contracture and saw nurse for voiding trialAs he was sent home same day with Kern catheter in place Patient voiding and stream is great but can just leak and using a pad and just recently now is dry at night and might have nocturia x2-3 Using pads in the day Not necessarily specific urge when leaks We will send off urine culture today Start Detrol Cystoscopy in 4 weeks and hopefully things settle down And surgery we did not take any resection near the apical prostate at all--Prostatic fossa was wide open Bladder scan/PVR: occ 07/20/2022 CC: cysto Months of urine frequency in the morning but later in the afternoon that settles down like before still Denies dysuria or gross hematuria and voiding as per last visit No fevers or chills Cystoscopy shows obstruction mid prostate or bladder neck as noted below Residual urine still around 80 cc We will schedule for cystoscopy and urethral dilation and possible DVIU/TURP/Pyelogram He will need to be off Eliquis and will get clearance for that and want him off at least 1 week after the procedure also Denies chest pain or shortness of breath We will schedule at [facility] Bladder scan/postvoid residual-80 cc approximate 06/29/2022 CC: marcy Saw me last noted below and had laser TURP Did well afterwards but then having more trouble so underwent TURP in December 2021 in [place] and did well but over the last month slower stream and nocturia 3-4 and moreUrgency Residual urine 79 cc Not on alpha blockers and so we will add Uroxatrol and see if helpful Cialis as needed already and on Eliquis Cystoscopy on return Bladder scan/PVR: 79cc 11/01/2017 very happy status post his laser TURP in the past and stream is grade and still some daytime frequency but drink (more content not included)... [facility] 06-24-2023 History of Present illness Narrative Senior Vice President & General Counsel present:Rina Sheets MA ESTABLISHED PATIENT OFFICE VISIT PATIENT INFO: Juan Jose Foster 88 year old HPI 06/24/2023 CC: cysto uses coud catheter and passing every day and that works fine On cystoscopy same as last visit and cannot get the scope through it and there is the 6:00 ledge mid prostate as before and all looks stable He will call and let us know what medications he is on because he brought in a pill that is round and somewhat thick and that gets stuck in his esophagus He thinks it is a prostate shrinking pill but I do not see that we have him on Proscar We just had him on Uroxatrol and Detrol but I do not see Detrol on med list He will call and let us know things look stable so I think he can stop the urethral catheter passages as given what I see could cause trauma and problems and things could just stay stable without catheterization and he agrees Complains of erectile dysfunction- Viagra and Cialis did not work well and discussed vacuum device for his penile injection therapy or prosthesis placement options etc. in detail He is not interested in any of those Past Urology Hx: 11/16/2022 CC: cysto I did urethral dilation and then saw the nurse on October 26 to learn intermittent catheterization/reviewed again and plans to do it daily Presents today for cystoscopy Patient is using coud catheter and able to pass it and feels maybe a little snug and that is working well for him and he is satisfied On cystoscopy there is a ledge at 6:00 in that is why the coud catheter most likely passes without problem and straight catheter might get hung up He is going back to [place] in a few weeks and he knows to reconnect with urology there if he has problems Could always consult with Dr. Summers or Dr. Yamile Trujillo at [facility] who are stricture specialists and he will hold off on that for now ;; 10/19/2022 CC: cysto Was doing great but 2 days ago stream got a lot worse and frequency and no gross hematuria or dysuria Remains on the Uroxatrol and Detrol and the Eliquis On cystoscopy recurrence of bladder neck contracture and is small hole and a little below it a couple small holes that I think I can see through the bladder also Discussed options and will take to [facility] tomorrow for cystoscopy and urethral dilation and probably Kern placement and he will hold his Levaquin for now Denies chest pain or shortness of breath Dipstick urine negative 09/14/2022 CC: cysto Patient remains on Eliquis and he likes the tolterodine and is voiding great and very happy and remains on Uroxatrol Cystoscopy today showed some repeat narrowing just distal to the bladder neck and the prostate and I was able to push the scope through it with a little pressure and dilate the area and he has minimal residual urine He will stay on usual medications and wants repeat cystoscopy in 3-4 weeks to see if it can heal open and might need periodic dilatation in the meantime 08/17/2022 CC: tur Status post transurethral section bladder neck contracture and saw nurse for voiding trialAs he was sent home same day with Kern catheter in place Patient voiding and stream is great but can just leak and using a pad and just recently now is dry at night and might have nocturia x2-3 Using pads in the day Not necessarily specific urge when leaks We will send off urine culture today Start Detrol Cystoscopy in 4 weeks and hopefully things settle down And surgery we did not take any resection near the apical prostate at all--Prostatic fossa was wide open Bladder scan/PVR: occ 07/20/2022 CC: cysto Months of urine frequency in the morning but later in the afternoon that settles down like before still Denies dysuria or gross hematuria and voiding as per last visit No fevers or chills Cystoscopy shows obstruction mid prostate or bladder neck as noted below Residual urine still around 80 cc We will schedule for cystoscopy and urethral dilation and possible DVIU/TURP/Pyelogram He will need to be off Eliquis and will get clearance for that and want him off at least 1 week after the procedure also Denies chest pain or shortness of breath We will schedule at [facility] Bladder scan/postvoid residual-80 cc approximate 06/29/2022 CC: marcy Saw me last noted below and had laser TURP Did well afterwards but then having more trouble so underwent TURP in December 2021 in [place] and did well but over the last month slower stream and nocturia 3-4 and moreUrgency Residual urine 79 cc Not on alpha blockers and so we will add Uroxatrol and see if helpful Cialis as needed already and on Eliquis Cystoscopy on return Bladder scan/PVR: 79cc 11/01/2017 very happy status post his laser TURP in the past and stream is grade and still some daytime frequency but drinks a lot of fluid. Pleased with progress. Bladder scan/PVR: 40 09/2016--Patient complains of better s/p PVP. Nocturia x 1-2, stream-great, day urine frequency q 1hrs Urine incontinence-occ urge patient very happy with his result. PROSTATE: proscar lots SE--ED/loss hair flomax no help in past saw in [place]--all drugs tried sent by PA to discuss PVP--had been discussed by Urologist constanza bell last yr PROSTATE: 30-50 gm SEMINAL VESICLES: Both seminal vesicles are normal in size and are not tender. Urology Procedures: June 24, [id number] without stricture and get through prostate apex and mid prostate see narrow area with ledge at 6:00 once again and distal snug so I cannot get the scope through it easily but I can see through in the bladder neck appears open 12/16/[id number]-Ygwegtljht-edjoopl without stricture and I get through prostatic apex and I can see the narrow area bladder neck and 6 o'clock position there is a little ledge I have to go over the with the scope and then I can dilate the area by deviating the scope and no bladder lesion October 20, 2022-cystoscopy, urethral dilationin OR;Urethra- small hole at BN at 12 oclock A guide wire was advanced-Dilation using aqiudi22- sounds up to 26 F October 19, [id number] open and apex and mid prostate open but then small hole near 12 o'clock position towards the bladder neck and at 6 o'clock position couple of small holes I think I can see through to the bladder September 14, [id number]-cisl recurrence of contracture just distal to the bladder neck and the prostate and with a little force passed the scope through it and dilated this very short area of contracture and minimal residual urine August 05, 2022-cystoscopy, dilation, transurethral resection bladder pcap-Bwlurzgaj-ltxwcpqijcf inflamed benign urothelial mucosa with dystrophic microcalcifications July 20, [id number] urethral stricture but just inside verumontanum I can see just scar tissue further and prostate and could be just the bladder neck or mid prostate and calcification at 2 o'clock position and a few holes more towards 6:00 and they look black as if I can see through them into the bladder possibly September 24, 2016-photo vaporization of the prostate 11/11/2015: Procedure: cysto--[facility], Comment: bilobar obstruct; mod trabec Creatinine Date Value Ref Range Status 11/18/2022 1.62 (H) 0.73 - 1.22 mg/dL Final PSA (ng/mL) Date Value 07/22/2016 0.54 08/14/2012 0.84 PSA Screening (ng/mL) Date Value 11/16/2021 0.99 Glucose, Urine (mg/dL) Date Value 10/21/2016 neg Bilirubin, Urine (no units) Date Value 10/21/2016 neg Ketones, Urine (no units) Date Value 10/21/2016 neg Specific [place], Ur (no units) Date Value 10/21/2016 1.025 Hemoglobin/Blood,Ur (no units) Date Value 10/21/2016 moderate pH, Urine (no units) Date Value 10/21/2016 6.0 Protein, Urine (mg/dL) Date Value 10/21/2016 neg Nitrites (no units) Date Value 10/21/2016 neg Review of Systems Constitutional: Negative. HENT: Negative. Eyes: Negative. Respiratory: Negative. Cardiovascular: Negative. Gastrointestinal: Negative. Endocrine: Negative. Genitourinary: See HPI Musculoskeletal: Negative. Skin: Negative. Allergic/Immunologic: Negative. Neurological: Negative. Hematological: Negative. Psychiatric/Behavioral: Negative. 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 Followed by [facility]. FAMILY HISTORY Problem Relation Age of Onset Breast Cancer Mother Cancer Father COLON, melanoma COPD Brother Smoker Parkinson s Disease Brother other (melanoma) Paternal Grandfather multiple myeloma Allergies No Family History Asthma No Family History SOCIAL HISTORY Social History Tobacco Use Smoking status: Former Packs/day: 0.33 Years: 22.00 Additional pack years: 0.00 Total pack years: 7.26 Types: Cigarettes Start date: 04/25/1950 Quit date: 09/26/1973 Years since quittin.7 Smokeless tobacco: Never Tobacco comments: I was a light smoker, 1 pack every 3 days. Vaping Use Vaping Use: Never used Substance Use Topics Alcohol use: Yes Comment: occassional-once weekly Drug use: No MEDICATIONS: alfuzosin SR (UROXATRAL) 10 mg 24 hr tablet Take 1 tablet by mouth once daily omeprazole (PRILOSEC) 20 mg capsule Take 1 capsule by mouth once daily. 1/2 hr before meal. sildenafil (VIAGRA) 100 mg tablet Take 30 minutes prior to intercourse as needed. ELIQUIS 5 mg tab(s) take 1 tablet twice a day metoprolol tartrate, short acting, (LOPRESSOR) 50 mg tablet take 1 tablet twice a day calcium citrate/vitamin D3 (CALCIUM CITRATE + D ORAL) Take 800 mg by mouth once daily. amoxicillin (AMOXIL) 500 mg capsule TAKE FOUR CAPSULES BY MOUTH ONE HOUR BEFORE APPOINTMENT TRELEGY ELLIPTA 200-62.5-25 mcg dsdv Inhale as instructed once daily. Physical Exam Neurological: Mental Status: He is alert and oriented to person, place, and time. Risk/Benefit Discussion: Discussed causes of ED. Workup can include testosterone levels. treatment options include: Viagra, Levitra, Cialis; SUSHANT, penile injection therapy( along with risk of priapism and need to respond quickly to this), and penile prosthesis. Discussed dangers of NTG use with the oral therapies. FOLLOW UP (1s&1w; 3s): Return in about 1 year (around 06/23/2024). ASSESSMENT/PLAN: 1. Bladder neck stricture - ICD9: 596.89, ICD10: N32.0 (primary diagnosis) - SULFAMETHOXAZOLE 800 MG-TRIMETHOPRIM 160 MG TABLET - LIDOCAINE 2 % MUCOSAL JELLY IN APPLICATOR - CYSTO.PANENDO 2. ED (erectile dysfunction) of organic origin - ICD9: 607.84, ICD10: N52.9 Sharath Issa Please note: This note has been produced using speech recognition software and may contain errors related to that system including grammar, punctuation, spelling, gender and words and phrases that may be inappropriate. documented in this encounter [facility] 05-18-2023 Miscellaneous Notes Patient called requesting the following refill. Requested Prescriptions Pending Prescriptions Disp Refills alfuzosin SR (UROXATRAL) 10 mg 24 hr tablet [Pharmacy Med Name: Alfuzosin HCl ER 10 MG Oral Tablet Extended Release 24 Hour] 90 tablet 0 Sig: Take 1 tablet by mouth once daily Patient last appointment: Visit date not found Patient Phone numbers: [phone] (home) Request is for script(s) to be escript to pharmacy. Mariana Clayton MA documented in this encounter [facility] 05-02-2023 History of Present illness Narrative ACM LOW RN Patient identified by name and date of . Reason for review or outreach: Chart Review Low Priority Emergency Department Utilization Utilization in past 6 months: # Occurrences Date Last Occurrence Hospital Admission Hospital Observation ED SNF / Acute Rehab / LTAC ED DIAGNOSES/REASON(S) FOR ED USE: OTHER FINDINGS/SUMMARY: Pt attributed to [facility]. No action needed Patient Attributed To: ANDRY Payer: Rory MARS Action Taken: No action needed Contact made with patient: No, Chart review only. Signature: Mini Saldaña RN documented in this encounter [facility] 11-19-2022 Miscellaneous Notes Addended by: RADHA BERMAN on: 11/19/2022 03:14 PM Modules accepted: Orders The following approved medication requests have been transmitted electronically. Requested Prescriptions Signed Prescriptions Disp Refills omeprazole (PRILOSEC) 20 mg capsule 90 capsule 0 Sig: Take 1 capsule by mouth once daily. 1/2 hr before meal. Authorizing Provider: RADHA BERMAN APRN.APPLICATIONS SPECIALIST Patient is calling back in stating that the insurance will only cover the 20 mg and only one per day. If you can please send them a prescription for that please and thank you. omeprazole (PRILOSEC) 20 mg capsule 60 capsule 2 11/19/2022 02/17/2023 Sig: Take 1 capsule by mouth two times a day as needed. 1/2 hr before meal. Sent to pharmacy as: omeprazole (PRILOSEC) 20 mg capsule Contact patient at [phone] when this has been completed. Kate Wetzel Yes, OK to take 2 tablets if needed. The following approved medication requests have been transmitted electronically. Requested Prescriptions Signed Prescriptions Disp Refills omeprazole (PRILOSEC) 20 mg capsule 60 capsule 2 Sig: Take 1 capsule by mouth two times a day as needed. 1/2 hr before meal. Authorizing Provider: RADHA BERMAN APRN.CNP Call to pt and notified him of results and recommendation below, pt verbalized understanding. Pt states that he only has the 40 mg of Omeprazole at home. Asking for 20 mg to be sent to the pharmacy. If this dosage does not work for him can he use two tablets? Can Rx be written 1 to tabs po bid prn so he does not run out incase this is needed. Rx pended to correct pharmacy. Pt does not need called back, made aware to check with Pharmacy later today for new Rx. Radha Thompson Ma PLease call patient and let him know that lab work overall looks good! HgA1c is stable and staying within that pre-diabetes range. Kidney function is slightly worse than priors. Avoid use of NSAIDs OTC such as ibuprofen, advil, or alleve. The omeprazole medication can be hard on your kidneys, if GERD symptoms are well managed, I would like to try to decrease his dosage to 20 mg daily. Lipid panel looks good. Thank you, Radha Berman APRN.APPLICATIONS SPECIALIST documented in this encounter [facility] 11-01-2022 Miscellaneous Notes Patient phones requesting refills as follows: Requested Prescriptions Pending Prescriptions Disp Refills ELIQUIS 5 mg tab(s) [Pharmacy Med Name: ELIQUIS TABS 5MG] 180 tablet 3 Sig: take 1 tablet twice a day metoprolol tartrate, short acting, (LOPRESSOR) 50 mg tablet [Pharmacy Med Name: METOPROLOL TARTRATE TABS 50MG] 180 tablet 3 Sig: take 1 tablet twice a day SHAKIRA 08/31/2022 NOV 09/01/2023 documented in this encounter [facility] 10-26-2022 Nurse Note Patient in for CIC teaching. Given male CIC patient education sheet. Instructed on proper technique and s/s of infection, cath after trying to void, how to track. Verbalized understanding to all instruction. Patient able to cath self with nurse instruction/assistance. Used 16 icelandic coude catheter. Informed patient that he is to CIC once daily. Samples given. Georgie Hansen, RN documented in this encounter [facility] 10-21-2022 Miscellaneous Notes Scheduled for both appointments. Jeffrey Rdz Left pt vm re: Dr. Issa's message below. He needs scheduled for 2 appts. Asya S/pdilation P: see me for cysto about 4 weeks See nurse next week to show CIC which he will do once each day documented in this encounter [facility] 10-19-2022 Instructions Sharath Issa MD - 10/19/2022 10:47 AM EDT INSTRUCTIONS FROM DR. ISSA: Plan on cystoscopy with urethral dilation tomorrow at the [facility] documented in this encounter [facility] 10-19-2022 Procedure note Procedure(s): CYSTOSCOPY Pre-Procedure Diagnose(s): Slow urinary stream Post-Procedure Diagnose(s): Slow urinary stream CYSTOSCOPY PROCEDURE NOTE: [id number]-evhzk/fulg [id number]-qzull,bx 51562--yqzpt/complex 00363--ilqcp 56403--cztwmlvm cath [id number]-mezif/dilate BLADDER IRRIGATION, SIMPLE, LAVAG [[id number] Juan Jose Foster is a 87 year old male who presents for cystoscopy. Pt ID verified with patient: yes Procedure verified with patient: yes Procedure confirmed with physician and user support analyst: yes Special equipment-cystoscope UNIVERSAL PROTOCOL / SAFETY CHECKLIST Procedure to be Performed: cysto Sign In: A Moment of CARE was completed. Personnel directly involved with the procedure wore the appropriate PPE (Personal Protective Equipment). Patient/Surrogate Stated/Verified: PATIENT VERIFIED(optional for EMERGENT procedures): Patient name, Date of , Relevant allergies, and The intended procedure Time Out Communication: Intended patient and procedure match the source documents. Consent documented and matches the intended procedure. Relevant labs, photos, and/or imaging studies have been reviewed. No correct side/site applicable for marking and visibility. Medications required for procedure verified. Fire risk assessed and interventions discussed. No implant(s) inserted. Sign Out: SIGN OUT (optional for EMERGENT procedures): All specimen containers correctly labeled. All instruments, equipment, possible retained foreign bodies accounted for. Post-procedure follow-up management communicated and Plan of Care Visit completed when applicable. Sharath Issa MD A urinalysis was performed---- revealing no evidence of infection. Antibiotic was-Bactrim The benefits, risks, alternatives of the cystoscopy procedure and personnel were discussed with the patient. The verbal consent was obtained and the patient agrees to proceed. Procedure: The patient was placed on the procedure table in the supine position and prepped and draped in the usual sterile fashion. 2% Lidocaine Jelly was placed per urethra as an anesthetic in the standard fashion. Once adequate local anesthesia was achieved, the tip of the flexible cystoscope was carefully placed into the urethra under direct visual guidance. cystoscopy-urethra open and apex and mid prostate open but then small hole near 12 o'clock position towards the bladder neck and at 6 o'clock position couple of small holes I think I can see through to the bladder At the conclusion of the procedure, the flexible cystoscope was removed atraumatically. The patient tolerated the procedure without complications. Patient was given standard post-procedure instructions, and was directed to complete the course of oral antibiotics and increase oral fluid intake as directed. Sharath Issa MD See progress note for plans Sharath Issa MD documented in this encounter [facility] 10-19-2022 History of Present illness Narrative ESTABLISHED PATIENT OFFICE VISIT PATIENT INFO: Juan Jose Foster 87 year old HPI 10/19/2022 CC: cysto Was doing great but 2 days ago stream got a lot worse and frequency and no gross hematuria or dysuria Remains on the Uroxatrol and Detrol and the Eliquis On cystoscopy recurrence of bladder neck contracture and is small hole and a little below it a couple small holes that I think I can see through the bladder also Discussed options and will take to [facility] tomorrow for cystoscopy and urethral dilation and probably Kern placement and he will hold his Levaquin for now Denies chest pain or shortness of breath Dipstick urine negative Past Urology Hx: 09/14/2022 CC: cysto Patient remains on Eliquis and he likes the tolterodine and is voiding great and very happy and remains on Uroxatrol Cystoscopy today showed some repeat narrowing just distal to the bladder neck and the prostate and I was able to push the scope through it with a little pressure and dilate the area and he has minimal residual urine He will stay on usual medications and wants repeat cystoscopy in 3-4 weeks to see if it can heal open and might need periodic dilatation in the meantime 08/17/2022 CC: tur Status post transurethral section bladder neck contracture and saw nurse for voiding trialAs he was sent home same day with Kern catheter in place Patient voiding and stream is great but can just leak and using a pad and just recently now is dry at night and might have nocturia x2-3 Using pads in the day Not necessarily specific urge when leaks We will send off urine culture today Start Detrol Cystoscopy in 4 weeks and hopefully things settle down And surgery we did not take any resection near the apical prostate at all--Prostatic fossa was wide open Bladder scan/PVR: occ 07/20/2022 CC: cysto Months of urine frequency in the morning but later in the afternoon that settles down like before still Denies dysuria or gross hematuria and voiding as per last visit No fevers or chills Cystoscopy shows obstruction mid prostate or bladder neck as noted below Residual urine still around 80 cc We will schedule for cystoscopy and urethral dilation and possible DVIU/TURP/Pyelogram He will need to be off Eliquis and will get clearance for that and want him off at least 1 week after the procedure also Denies chest pain or shortness of breath We will schedule at [facility] Bladder scan/postvoid residual-80 cc approximate 06/29/2022 CC: [facility] Saw me last noted below and had laser TURP Did well afterwards but then having more trouble so underwent TURP in December 2021 in [place] and did well but over the last month slower stream and nocturia 3-4 and moreUrgency Residual urine 79 cc Not on alpha blockers and so we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 [place] [employer] Persistent atrial fibrillation (HCC) 10/11/2019 Admitted 09/05/2019 [facility]. Followed by [facility]. FAMILY HISTORY Problem Relation Age of Onset Breast Cancer Mother Cancer Father COLON, melanoma COPD Brother Smoker Parkinson s Disease Brother other (melanoma) Paternal Grandfather multiple myeloma Allergies No Family History Asthma No Family History SOCIAL HISTORY Social History Tobacco Use Smoking status: Former Years: 22.00 Types: Cigarettes Start date: [birth year]/25/1951 Quit date: 09/26/1973 Years since quittin.8 Smokeless tobacco: Never Tobacco comments: I was a light smoker, 1 pack every 3 days. Substance Use Topics Alcohol use: Yes Comment: occassional Drug use: No MEDICATIONS: alfuzosin SR (UROXATRAL) 10 mg 24 hr tablet^Take 1 tablet by mouth once daily.^Disp: 30 tablet^Rfl: 11 omeprazole (PRILOSEC) 40 mg capsule^Take 1 capsule by mouth once daily.^Disp: 90 capsule^Rfl: 3 albuterol HFA (VENTOLIN HFA) 90 mcg/actuation inhaler^Inhale 2 Puffs as instructed every 4 hours as needed for wheezing/shortness of breath. Also can use 10 minutes before exercise^Disp: 18 g^Rfl: 2 Tadalafil (CIALIS) 10 mg tablet^Take 1 tablet once daily as needed for erectile dysfunction^Disp: 90 tablet^Rfl: 3 apixaban (ELIQUIS) 5 mg tab(s)^Take 1 tablet by mouth twice daily.^Disp: 180 tablet^Rfl: 3 metoprolol tartrate, short acting, (LOPRESSOR) 50 mg tablet^Take 1 tablet by mouth twice daily.^Disp: 180 tablet^Rfl: 3 TRELEGY ELLIPTA 200-62.5-25 mcg dsdv^^Disp: ^Rfl: cetirizine (ZYRTEC) 10 mg tablet^Take 10 mg by mouth once daily.^Disp: ^Rfl: 0 ProAir RespiClick 90 mcg/actuation breath activated (albuterol sulfate)^Inhale 1 Puff as instructed four times daily as needed.^Disp: 1 Each^Rfl: 11 multivitamin tablet^Twice weekly^Disp: ^Rfl: (Patient taking differently: No sig reported) Physical Exam HENT: Head: Normocephalic and atraumatic. Nose: Nose normal. Neck: Trachea: No tracheal deviation. Pulmonary: Effort: Pulmonary effort is normal. No respiratory distress. Musculoskeletal: General: No deformity. Normal range of motion. Cervical back: Normal range of motion. Skin: General: Skin is warm. Neurological: Mental Status: He is alert and oriented to person, place, and time. Gait: Gait is intact. Psychiatric: Mood and Affect: Mood and affect normal. Cognition and Memory: Memory normal. Risk/Benefit Discussion: TUR Prostate I explained the options concerning surgery versus medication.I explained the possibility of impotency, retrograde ejaculation, and incontinence ,the possibility of blood loss, and transfusion and the fact that he may be admitted post operatively. I explained the post operative urgency, frequency, and dysuria. Risk of anesthesia complications, stroke, CT, etc.The patient expressed an understanding with regard to possible complications and outcome. FOLLOW UP (1s&1w; 3s): Return if symptoms worsen or fail to improve. ASSESSMENT/PLAN: 1. BPH with obstruction/lower urinary tract symptoms - ICD9: 600.01, 599.69, ICD10: N40.1, N13.8 (primary diagnosis) 2. Nocturia - ICD9: 788.43, ICD10: R35.1 3. Poor urinary stream - ICD9: 788.62, ICD10: R39.12 - URINE CULTURE 4. Incomplete bladder emptying - ICD9: 788.21, ICD10: R33.9 5. 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 documented in this encounter [facility] 07-01-2022 History of Present illness Narrative This note was created using Yoyoriter. Subjective Juan Jose Foster is a 87 year old male. HPI 87-year-old male presents for right ear pain. Patient has been having right ear pain and swelling for the past week. He states the outside of his ear feels swollen. He has not been swimming or in a hot tub recently. He has had something like this similar in the past. No drainage from the ear. No difficulty hearing. No tinnitus. No cough, congestion or other URI symptoms. No fevers no other complaints Review of Systems Constitutional: Negative for chills and fever. HENT: Positive for ear pain. Negative for congestion and sore throat. Respiratory: Negative for cough and shortness of breath. Gastrointestinal: Negative for diarrhea and vomiting. Objective BP 128/76 Pulse 94 Temp 36.4 C (97.6 F) (Tympanic) Resp 18 Wt 96.8 kg (213 lb 6.4 oz) SpO2 96% BMI 29.76 kg/m Physical Exam Vitals and nursing note reviewed. Constitutional: General: He is not in acute distress. Appearance: Normal appearance. He is not toxic-appearing. HENT: Right Ear: No decreased hearing noted. Swelling and tenderness present. No drainage. No mastoid tenderness. Tympanic membrane is not erythematous. Left Ear: Tympanic membrane and ear canal normal. Ears: Comments: External right ear is swollen and erythematous. The external canal is slightly swollen as well. TM appears intact. No TM erythema. No drainage from the ear. No facial swelling or redness. No mastoid tenderness. Nose: Nose normal. Mouth/Throat: Mouth: Mucous membranes are moist. Eyes: Conjunctiva/sclera: Conjunctivae normal. Cardiovascular: Rate and Rhythm: Normal rate and regular rhythm. Pulmonary: Effort: Pulmonary effort is normal. Breath sounds: Normal breath sounds. Skin: General: Skin is warm and dry. Neurological: Mental Status: He is alert. Assessment and Plan ASSESSMENT/PLAN: 1. Acute otitis externa of right ear, unspecified type - ICD9: 380.10, ICD10: H60.501 (primary diagnosis) - RX for Ofloxacin drops. - RX for Augmentin as pt does appear to have some cellulitis of external ear as well. - No signs of mastoiditis. - Recommend follow up with PCP in 3 days for re-evaluation. 2. Cellulitis of right external ear - ICD9: 380.10, ICD10: H60.11 - see above. Diagnosis and treatment plan were discussed and questions were answered to the patient's satisfaction. Pt acknowledged understanding of concepts and follow up plan. Specific signs and symptoms that would indicate the need for higher level of care were discussed in detail warranting prompt ER evaluation. MARIEL Cardona documented in this encounter [facility] 06-29-2022 Instructions Sharath Issa MD - 06/29/2022 3:50 PM EDT INSTRUCTIONS FROM DR. ISSA: Start the Uroxatrol medication I sent your pharmacy I will see back for the cystoscopy in the office PATIENT INFORMATION: Cystoscopy is a test that uses a thin, lighted tube called a cystoscope to see the inside of the bladder and the urethra (the tube that carries urine out of the body). The doctor can use the scope to look for bladder stones, tumors, bleeding, and sources of infection. This test lets your doctor look at areas of your bladder and urethra that do not show up well on X-rays. You are likely having this test to find out what is causing the blood in your urine, but your doctor may also do this test to evaluate other possible bladder problems. Your doctor may be able to tell you some of the results right after the test. The test usually takes less than 5 minutes and no special preparation is required (you may eat and drink and take your medications as usual before the test). Your doctor may prescribe a single dose of an antibiotic before the test if he feel's that you may be at increased risk for developing an infection (a 2-3% risk). Cystoscopy is usually done in the office with a local anesthetic that is instilled directly into your urethra. There is perhaps some temporary discomfort with urination after the test. documented in this encounter [facility] 06-29-2022 History of Present illness Narrative ESTABLISHED PATIENT OFFICE VISIT PATIENT INFO: Juan Jose Foster 87 year old HPI 06/29/2022 CC: marcy Saw me last noted below and had laser TURP Did well afterwards but then having more trouble so underwent TURP in December 2021 in [place] and did well but over the last month slower stream and nocturia 3-4 and moreUrgency Dipstick urine negative Residual urine 79 cc Not on alpha blockers and so we will add Uroxatrol and see if helpful Cialis as needed already and on Eliquis Cystoscopy on return Scores/PVR: Bladder scan/PVR: 79cc Past Urology Hx: 11/01/2017 very happy status post his laser TURP in the past and stream is grade and still some daytime frequency but drinks a lot of fluid. Pleased with progress. No gross hematuria or dysuria. Scores/PVR: Bladder scan/PVR: 40 09/2016--Patient complains of better s/p PVP. Nocturia x 1-2, stream-great, day urine frequency q 1hrs Urine incontinence-occ urge Urine clear patient very happy with his result. PROSTATE: He wants to have his prostate examined. His last prostate examination was 6 months ago. No dysuria noted. He has frequency am freq then les later in day but stillk q hr No hematuria is present. He has nocturia 2X. The urinary stream is moderate. The symptoms have been present several years. There is no family history of prostate cancer. He has not had a history of urinary tract infections. proscar lots SE--ED/loss hair flomax no help in past saw in [place]--all drugs tried sent by PA to discuss PVP--had been discussed by Urologist constanza cysto last yr PROSTATE: 30-50 gm SEMINAL VESICLES: Both seminal vesicles are normal in size and are not tender. Urology Procedures: September 24, 2016-photo vaporization of the prostate 11/11/2015: Procedure: cysto--Riley [facility], Comment: bilobar obstruct; mod trabec Creatinine Date Value Ref Range Status 11/16/2021 1.40 (H) 0.73 - 1.22 mg/dL Final PSA (ng/mL) Date Value 07/22/2016 0.54 08/14/2012 0.84 PSA Screening (ng/mL) Date Value 11/16/2021 0.99 Glucose, Urine (mg/dL) Date Value 10/21/2016 neg Bilirubin, Urine (no units) Date Value 10/21/2016 neg Ketones, Urine (no units) Date Value 10/21/2016 neg Specific [place], Ur (no units) Date Value 10/21/2016 1.025 Hemoglobin/Blood,Ur (no units) Date Value 10/21/2016 moderate pH, Urine (no units) Date Value 10/21/2016 6.0 Protein, Urine (mg/dL) Date Value 10/21/2016 neg Nitrites (no units) Date Value 10/21/2016 neg Review of Systems Constitutional: Negative. HENT: Negative. Eyes: Negative. Respiratory: Positive for shortness of breath. Cardiovascular: Negative. Gastrointestinal: Negative. Endocrine: Negative. Genitourinary: See HPI Musculoskeletal: Negative. Skin: Negative. Allergic/Immunologic: Negative. Neurological: Negative. Hematological: Negative. Psychiatric/Behavioral: Negative. I reviewed and confirmed ROS obtained by MA HISTORIES PAST MEDICAL HISTORY Diagnosis Date Actinic keratosis Arthropathy, unspecified, site unspecified Asthma-COPD overlap syndrome (HCC) Dermatophytosis of foot chronic Dysphagia Family history of malignant neoplasm of gastrointestinal tract family history of colon cancer Melanoma (HCC) 1991 [place] [employer] Persistent atrial fibrillation (HCC) 10/11/2019 Admitted 09/05/2019 [facility]. Followed by [facility]. FAMILY HISTORY Problem Relation Age of Onset Breast Cancer Mother Cancer Father COLON, melanoma COPD Brother Smoker Parkinson s Disease Brother other (melanoma) Paternal Grandfather multiple myeloma Allergies No Family History Asthma No Family History SOCIAL HISTORY Social History Tobacco Use Smoking status: Former Years: 22.00 Types: Cigarettes Start date: 04/25/1951 Quit date: 09/26/1973 Years since quittin.7 Smokeless tobacco: Never Tobacco comments: I was a light smoker, 1 pack every 3 days. Substance Use Topics Alcohol use: Yes Comment: occassional Drug use: No MEDICATIONS: omeprazole (PRILOSEC) 40 mg capsule Take 1 capsule by mouth once daily. albuterol HFA (VENTOLIN HFA) 90 mcg/actuation inhaler Inhale 2 Puffs as instructed every 4 hours as needed for wheezing/shortness of breath. Also can use 10 minutes before exercise Tadalafil (CIALIS) 10 mg tablet Take 1 tablet once daily as needed for erectile dysfunction apixaban (ELIQUIS) 5 mg tab(s) Take 1 tablet by mouth twice daily. metoprolol tartrate, short acting, (LOPRESSOR) 50 mg tablet Take 1 tablet by mouth twice daily. TRELEGY ELLIPTA 200-62.5-25 mcg dsdv cetirizine (ZYRTEC) 10 mg tablet Take 10 mg by mouth once daily. alfuzosin SR (UROXATRAL) 10 mg 24 hr tablet Take 1 tablet by mouth once daily. ProAir RespiClick 90 mcg/actuation breath activated (albuterol sulfate) Inhale 1 Puff as instructed four times daily as needed. multivitamin tablet Twice weekly (Patient taking differently: No sig reported) Physical Exam HENT: Head: Normocephalic and atraumatic. Nose: Nose normal. Neck: Trachea: No tracheal deviation. Pulmonary: Effort: Pulmonary effort is normal. No respiratory distress. Musculoskeletal: General: No deformity. Cervical back: Normal range of motion. Skin: General: Skin is warm. Neurological: Mental Status: He is alert and oriented to person, place, and time. Gait: Gait is intact. Psychiatric: Mood and Affect: Mood and affect normal. Cognition and Memory: Memory normal. Risk/Benefit Discussion: Cystoscopy I explained the options concerning cystoscopy I did tell the patient about various alternatives and why cystoscopy was indicated in this particular circumstance. I advised the patient about the possible outcome and the possibility of infection post operatively and possible dysuria or hematuria. The patient expressed an understanding with regard to possible complications and outcome. FOLLOW UP (1s&1w; 3s): Return in about 3 weeks (around 07/20/2022). ASSESSMENT/PLAN: 1. BPH with obstruction/lower urinary tract symptoms - ICD9: 600.01, 599.69, ICD10: N40.1, N13.8 (primary diagnosis) 2. Nocturia - ICD9: 788.43, ICD10: R35.1 3. Poor urinary stream - ICD9: 788.62, ICD10: R39.12 - ALFUZOSIN ER 10 MG TABLET,EXTENDED RELEASE 24 HR 4. Frequency of micturition - ICD9: 788.41, ICD10: R35.0 5. Incomplete bladder emptying - ICD9: 788.21, ICD10: R33.9 Sharath Issa Please note: This note has been produced using speech recognition software and may contain errors related to that system including grammar, punctuation, spelling, gender and words and phrases that may be inappropriate. documented in this encounter [facility] 12-28-2021 Miscellaneous Notes RN from [place] called about pt getting clearance for surgery. She is requesting for EKG, SHAKIRA from Dr. Mcintosh, Echo and stress test results. Advised RN to call medical records to obtain these documents at [phone] documented in this encounter [facility] 12-08-2021 History of Present illness Narrative Patient came in presenting with a sore on his middle upper chest. Patient says he has had 3 weeks. Patient says it does not seem to be getting better. Patient says he did try to open it up but nothing came out. Patient has a history of skin cancer lesions. Patient sees a childcare aide for this. Did attempt to call patient's dermatology office they were not sure they can get them in. Got an appointment tomorrow with Julian Robbins. Patient was okay with this and patient will follow-up tomorrow morning with Julian Robbins. documented in this encounter [facility] 12-07-2021 Miscellaneous Notes Spoke with pt and information listed below given. Pt verbalizes understanding. Heather Welch LPN Left message to return call. Please inform patient that his calcium levels are slighlty elevated and his serum creatinine are slightly elevated as well. Needs to increase fluids to at least 60-80 oz a day. His labs also show continued prediabetes levels at 6.2% a1c. Decrease sugars and starches in diet. Dipak Aguilar DO documented in this encounter [facility] 12-01-2021 History of Present illness Narrative Patient presents for COVID booster. Denies any problems at this time. Tolerated injection well. Arlin Yang LPN documented in this encounter [facility] 11-16-2021 History of Past i llness Narrative Problem Noted Date Diagnosed Date Resolved Date Atrial fibrillation 11/16/2021 11/17/19 23 Atrial fibrillation, chronic 08/26/2020 11/12/2021 Persistent atrial fibrillation 10/11/2019 11/12/2021 Overview: Admitted 09/05/2019 [facility]. Followed by [facility]. Asthma with chronic obstruct steve pulmonary disease (COPD) 10/26/2018 09/12/2019 documented as of this encounter (statuses as of 11/19/2022) [facility] History of Past illness Narrative* Problem Noted Date Diagnosed Date Resolved Date Atrial fibrillation 11/16/2021 11/17/19 23 Atrial fibrillation, chronic 08/26/2020 11/12/2021 Persistent atrial fibrillation 10/11/2019 11/12/2021 Overview: Admitted 09/05/2019 [facility]. Followed by [facility]. Asthma with chronic obstruct steve pulmonary disease (COPD) 10/26/2018 09/12/2019 documented as of this encounter (statuses as of 05/02/2023) [facility] History of Past illness Narrative* Problem Noted Date Diagnosed Date Resolved Date Atrial fibrillation 11/16/2021 11/17/19 23 Atrial fibrillation, chronic 08/26/2020 11/12/2021 Persistent atrial fibrillation 10/11/2019 11/12/2021 Overview: Admitted 09/05/2019 [facility]. Follow[facility] by [facility]. Asthma with chronic obstruct steve pulmonary disease (COPD) 10/26/2018 09/12/2019 documented as of this encounter (statuses as of 05/18/2023) [facility]08-15-2022 Miscellaneous Notes* Telephone Encounter - Lidia Danielson Pss - 10/05/2021 9:37 AM EDT Form has been scanned and faxed. Thank you * Telephone Encounter - Wes Mcintosh MD - 10/02/2021 5:28 PM EDT Done. * Telephone Encounter - Lizzie Bonds Ma - 09/30/2021 8:28 AM EDT Type of form: [place] urology specialist. (Asking about stopping Eliquis) Form received via fax When form is completed, Fax form to [phone] Form has been forwarded to Physician Desk: Dr. Dayna GALDAMEZ. Lizzie Bonds Ma [facility] History of Present illness Narrative* Sara Zaragoza Sami Pss - 08/07/2021 9:43 AM EDT POPULATION HEALTH NAVIGATION OUTREACH Action/ Patient Outreach: [facility] Support - Pt has currently been scheduled and seen for PCP follow upvisit. Pt identified by name and : NO Outreach Outcome/Action Unable to reach patient: Phone number not valid / voicemail full Did you use a PCP flex slot to schedule this appointment? No Reason for Outreach Care Gap or Scheduling/Wellness visits Payer: Payor: [employer] MEDICARE / Plan: [employer] MEDICARE PPO / Product Type: PPO / Care Gap Reviewed:: Follow-up appointment Reminder: Reminder note to check Health Maintenance for items below Health Maintenance items due: DTAP,TDAP,TD(1 - Tdap) due on 11/12/2017 SHINGRIX VACCINE(2 of 2) due on 03/02/2019 ADVANCE DIRECTIVE DISCUSSION Never done COVID-19 VACCINE(4 - Booster for Pfizer series) due on 03/19/2021 Message Sent to Practice: No Navigation Signature: Sara Wetzel August 07, 2021 9:43 AM [facility] History of Present illness Narrative* Sara Arshad RT(R) - 10/13/2020 9:50 AM EDT Radiology Service Progress Note PATIENT NAME: Juan Jose Foster DATE OF SERVICE: October 13, 2020 TIME: 9:48 AM PATIENT IDENTITY VERIFICATION COMPLETED USING TWO (2) IDENTIFIERS: Name and Date of confirmedby patient verbally. FALL SCREENING: Has the patient had 2 falls in the last year or 1 fall with injury or currently using an Ambulatory Assistive Device (Walker, Cane, Wheelchair, Crutches, etc.)? Yes, Patient High Riskfor Falls What interventions were put in place to prevent falls during this visit? Instructed Patient to Callfor Help if Needed, Offered Assistance with Transfers/Clothing, Instructed Patient to Remain Seated(Not on Exam Table) Until Exam and Increased Observations by Caregivers PATIENT GENDER DATA: Male PATIENT RELEVANT IMPLANT DATA REVIEWED: Not Applicable RADIOLOGY DEPARTMENT: General X-ray: Exam(s) Completed: Chest X-Ray Lower Extremity X-Ray(s): Knee, AP / Lat / Tunne / Merchant Right and Wt. Bearing PERIPHERAL IV DATA: Not applicable SIGNED BY: RT Meg(R) October 13, 2020 9:48 AM [facility] History of Past illness Narrative* Problem Noted Date Resolved Date Atrial fibrillation, chronic 08/26/2020 Persistent atrial fibrillation 10/11/2019 0 11/12/2021 Overview: Admitted 09/05/2019 [facility]. Followed by [facility]. Asthma with chronic obstructive pulmonary diseas e (COPD) 10/26/2018 09/12/2019 documented as of this encounter (statuses as of 12/01/2021) [facility] History of Past illness Narrative* Problem Noted Date Resolved Date Atrial fibrillation, chronic 08/26/2020 Persistent atrial fibrillation 10/11/2019 0 11/12/2021 Overview: Admitted 09/05/2019 [facility]. Followed by [facility]. Asthma with chronic obstructive pulmonary diseas e (COPD) 10/26/2018 09/12/2019 documented as of this encounter (statuses as of 12/07/2021) [facility] History of Past illness Narrative* Problem Noted Date Resolved Date Atrial fibrillation, chronic 08/26/2020 Persistent atrial fibrillation 10/11/2019 0 11/12/2021 Overview: Admitted 09/05/2019 [facility]. Followed by [facility]. Asthma with chronic obstructive pulmonary diseas e (COPD) 10/26/2018 09/12/2019 documented as of this encounter (statuses as of 12/08/2021) [facility] History of Past illness Narrative* Problem Noted Date Resolved Date Atrial fibrillation, chronic 08/26/2020 Persistent atrial fibrillation 10/11/2019 0 11/12/2021 Overview: Admitted 09/05/2019 [facility]. Followed by [facility]. Asthma with chronic obstructive pulmonary diseas e (COPD) 10/26/2018 09/12/2019 documented as of this encounter (statuses as of 12/28/2021) [facility] History of Past illness Narrative* Problem Noted Date Resolved Date Atrial fibrillation, chronic 08/26/2020 Persistent atrial fibrillation 10/11/2019 0 11/12/2021 Overview: Admitted 09/05/2019 [facility]. Followed by [facility]. Asthma with chronic obstructive pulmonary diseas e (COPD) 10/26/2018 09/12/2019 documented as of this encounter (statuses as of 07/01/2022) [facility] History of Past illness Narrative* Problem Noted Date Resolved Date Atrial fibrillation, chronic 08/26/2020 Persistent atrial fibrillation 10/11/2019 0 11/12/2021 Overview: Admitted 09/05/2019 [facility]. Followed by [facility]. Asthma with chronic obstructive pulmonary diseas e (COPD) 10/26/2018 09/12/2019 documented as of this encounter (statuses as of 07/01/2022) [facility] History of Past illness Narrative* Problem Noted Date Resolved Date Atrial fibrillation, chronic 08/26/2020 Persistent atrial fibrillation 10/11/2019 0 11/12/2021 Overview: Admitted 09/05/2019 [facility]. Followed by [facility]. Asthma with chronic obstructive pulmonary diseas e (COPD) 10/26/2018 09/12/2019 documented as of this encounter (statuses as of 07/22/2022) [facility] History of Past illness Narrative* Problem Noted Date Resolved Date Atrial fibrillation, chronic 08/26/2020 Persistent atrial fibrillation 10/11/2019 0 11/12/2021 Overview: Admitted 09/05/2019 [facility]. Followed by [facility]. Asthma with chronic obstructive pulmonary diseas e (COPD) 10/26/2018 09/12/2019 documented as of this encounter (statuses as of 07/22/2022) [facility] History of Past illness Narrative* Problem Noted Date Resolved Date Atrial fibrillation, chronic 08/26/2020 Persistent atrial fibrillation 10/11/2019 0 11/12/2021 Overview: Admitted 09/05/2019 [facility]. Followed by [facility]. Asthma with chronic obstructive pulmonary diseas e (COPD) 10/26/2018 09/12/2019 documented as of this encounter (statuses as of 07/26/2022) [facility] History of Past illness Narrative* Problem Noted Date Resolved Date Atrial fibrillation, chronic 08/26/2020 Persistent atrial fibrillation 10/11/2019 0 11/12/2021 Overview: Admitted 09/05/2019 [facility]. Followed by [facility]. Asthma with chronic obstructive pulmonary diseas e (COPD) 10/26/2018 09/12/2019 documented as of this encounter (statuses as of 08/05/2022) [facility] History of Past illness Narrative* Problem Noted Date Resolved Date Atrial fibrillation, chronic 08/26/2020 Persistent atrial fibrillation 10/11/2019 0 11/12/2021 Overview: Admitted 09/05/2019 [facility]. Followed by [facility]. Asthma with chronic obstructive pulmonary diseas e (COPD) 10/26/2018 09/12/2019 documented as of this encounter (statuses as of 08/09/2022) [facility] History of Past illness Narrative* Problem Noted Date Resolved Date Atrial fibrillation, chronic 08/26/2020 Persistent atrial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 Wheezing Asthma-COPD overlap syndrome (HCC) SOB (shortness of breath) on exertion Shortness of breath Decreased activity tolerance Productive cough Cough Screening for depression Encounter for immunization Need for other specified prophylactic vaccination against single bacterial disease Encounter for screening examination for other mental health and behavioral disorders [facility] Diagnosis Permanent atrial fibrillation (HCC) Atrial fibrillation Asthma-COPD overlap syndrome (HCC) Gastroesophageal reflux disease, unspecified whether esophagitis present Ex-smoker Personal history of tobacco use, presenting hazards to health BPH with obstruction/lower urinary tract symptoms Hypertrophy of prostate with urinary obstruction and other lower urinary tract symptoms (LUTS) Pre-op exam Preoperative examination, unspecified Elevated blood pressure reading without diagnosis of hypertension Wheezing Asthma-COPD overlap syndrome (HCC) SOB (shortness of breath) on exertion Shortness of breath Decreased activity tolerance Productive cough Cough [facility] Diagnosis Permanent atrial fibrillation (HCC) Atrial fibrillation Asthma-COPD overlap syndrome (HCC) Gastroesophageal reflux disease, unspecified whether esophagitis present Ex-smoker Personal history of tobacco use, presenting hazards to health BPH with obstruction/lower urinary tract symptoms Hypertrophy of prostate with urinary obstruction and other lower urinary tract symptoms (LUTS) Pre-op exam Preoperative examination, unspecified Elevated blood pressure reading without diagnosis of hypertension Wheezing Asthma-COPD overlap syndrome (HCC) SOB (shortness of breath) on exertion Shortness of breath Decreased activity tolerance Productive cough Cough [facility] Diagnosis Permanent atrial fibrillation (HCC) Atrial fibrillation Asthma-COPD overlap syndrome (HCC) Gastroesophageal reflux disease, unspecified whether esophagitis present Ex-smoker Personal history of tobacco use, presenting hazards to health BPH with obstruction/lower urinary tract symptoms Hypertrophy of prostate with urinary obstruction and other lower urinary tract symptoms (LUTS) Pre-op exam Preoperative examination, unspecified Elevated blood pressure reading without diagnosis of hypertension Screening for ischemic heart disease- Primary [facility] Diagnosis Permanent atrial fibrillation (HCC) Atrial fibrillation Asthma-COPD overlap syndrome (HCC) Gastroesophageal reflux disease, unspecified whether esophagitis present Ex-smoker Personal history of tobacco use, presenting hazards to health BPH with obstruction/lower urinary tract symptoms Hypertrophy of prostate with urinary obstruction and other lower urinary tract symptoms (LUTS) Pre-op exam Preoperative examination, unspecified Elevated blood pressure reading without diagnosis of hypertension Shortness of breath [facility] Diagnosis Permanent atrial fibrillation (HCC) Atrial fibrillation Asthma-COPD overlap syndrome (HCC) Gastroesophageal reflux disease, unspecified whether esophagitis present Ex-smoker Personal history of tobacco use, presenting hazards to health BPH with obstruction/lower urinary tract symptoms Hypertrophy of prostate with urinary obstruction and other lower urinary tract symptoms (LUTS) Pre-op exam Preoperative examination, unspecified Elevated blood pressure reading without diagnosis of hypertension Lung nodule- Primary Solitary pulmonary nodule [facility] Diagnosis Permanent atrial fibrillation (HCC) Atrial fibrillation Asthma-COPD overlap syndrome (HCC) Gastroesophageal reflux disease, unspecified whether esophagitis present Ex-smoker Personal history of tobacco use, presenting hazards to health BPH with obstruction/lower urinary tract symptoms Hypertrophy of prostate with urinary obstruction and other lower urinary tract symptoms (LUTS) Pre-op exam Preoperative examination, unspecified Elevated blood pressure reading without diagnosis of hypertension Permanent atrial fibrillation (HCC) Atrial fibrillation [facility] Diagnosis Permanent atrial fibrillation (HCC) Atrial fibrillation Asthma-COPD overlap syndrome (HCC) Gastroesophageal reflux disease, unspecified whether esophagitis present Ex-smoker Personal history of tobacco use, presenting hazards to health BPH with obstruction/lower urinary tract symptoms Hypertrophy of prostate with urinary obstruction and other lower urinary tract symptoms (LUTS) Pre-op exam Preoperative examination, unspecified Elevated blood pressure reading without diagnosis of hypertension Hospital discharge follow-up- Primary Other follow-up examination Asthma-COPD overlap syndrome (HCC) Chronic respiratory failure with hypoxia (HCC) Chronic respiratory failure Decreased activities of daily living (ADL) Bilateral leg edema Edema Confusion Unspecified psychosis Cerebrovascular accident (CVA), unspecified mechanism (HCC) Poor mobility Other ill-defined conditions Unsteady gait Abnormality of gait documented in this encounter [facility] note* Diagnosis Permanent atrial fibrillation (HCC) Atrial fibrillation Asthma-COPD overlap syndrome (HCC) Gastroesophageal reflux disease, unspecified whether esophagitis present Ex-smoker Personal history of tobacco use, presenting hazards to health BPH with obstruction/lower urinary tract symptoms Hypertrophy of prostate with urinary obstruction and other lower urinary tract symptoms (LUTS) Pre-op exam Preoperative examination, unspecified Elevated blood pressure reading without diagnosis of hypertension Hospital discharge follow-up Other follow-up examination Bilateral leg edema Edema documented in this encounter [facility] note* Diagnosis Permanent atrial fibrillation (HCC) Atrial fibrillation Asthma-COPD overlap syndrome (HCC) Gastroesophageal reflux disease, unspecified whether esophagitis present Ex-smoker Personal history of tobacco use, presenting hazards to health BPH with obstruction/lower urinary tract symptoms Hypertrophy of prostate with urinary obstruction and other lower urinary tract symptoms (LUTS) Pre-op exam Preoperative examination, unspecified Elevated blood pressure reading without diagnosis of hypertension New onset type 2 diabetes mellitus (HCC)- Primary Permanent atrial fibrillation (HCC) Atrial fibrillation Hypertension, essential Unspecified essential hypertension [facility]* Diagnosis Permanent atrial fibrillation (HCC) Atrial fibrillation Asthma-COPD overlap syndrome (HCC) Gastroesophageal reflux disease, unspecified whether esophagitis present Ex-smoker Personal history of tobacco use, presenting hazards to health BPH with obstruction/lower urinary tract symptoms Hypertrophy of prostate with urinary obstruction and other lower urinary tract symptoms (LUTS) Pre-op exam Preoperative examination, unspecified Elevated blood pressure reading without diagnosis of hypertension New onset type 2 diabetes mellitus (HCC) documented [facility]* Diagnosis Permanent atrial fibrillation (HCC) Atrial fibrillation Asthma-COPD overlap syndrome (HCC) Gastroesophageal reflux disease, unspecified whether esophagitis present Ex-smoker Personal history of tobacco use, presenting hazards to health BPH with obstruction/lower urinary tract symptoms Hypertrophy of prostate with urinary obstruction and other lower urinary tract symptoms (LUTS) Pre-op exam Preoperative examination, unspecified Elevated blood pressure reading without diagnosis of hypertension Permanent atrial fibrillation (HCC) Atrial fibrillation documented in this encounter [facility] note* Diagnosis Permanent atrial fibrillation (HCC) Atrial fibrillation Asthma-COPD overlap syndrome (HCC) Gastroesophageal reflux disease, unspecified whether esophagitis present Ex-smoker Personal history of tobacco use, presenting hazards to health BPH with obstruction/lower urinary tract symptoms Hypertrophy of prostate with urinary obstruction and other lower urinary tract symptoms (LUTS) Pre-op exam Preoperative examination, unspecified Elevated blood pressure reading without diagnosis of hypertension Permanent atrial fibrillation (HCC) Atrial fibrillation documented in this encounter [facility] note* Diagnosis Permanent atrial fibrillation (HCC) Atrial fibrillation Asthma-COPD overlap syndrome (HCC) Gastroesophageal reflux disease, unspecified whether esophagitis present Ex-smoker Personal history of tobacco use, presenting hazards to health BPH with obstruction/lower urinary tract symptoms Hypertrophy of prostate with urinary obstruction and other lower urinary tract symptoms (LUTS) Pre-op exam Preoperative examination, unspecified Elevated blood pressure reading without diagnosis of hypertension Hypertension, essential- Primary Unspecified essential hypertension Permanent atrial fibrillation (HCC) Atrial fibrillation New onset type 2 diabetes mellitus (HCC) documented in this encounter [facility] note* Diagnosis Permanent atrial fibrillation (HCC) Atrial fibrillation Asthma-COPD overlap syndrome (HCC) Gastroesophageal reflux disease, unspecified whether esophagitis present Ex-smoker Personal history of tobacco use, presenting hazards to health BPH with obstruction/lower urinary tract symptoms Hypertrophy of prostate with urinary obstruction and other lower urinary tract symptoms (LUTS) Pre-op exam Preoperative examination, unspecified Elevated blood pressure reading without diagnosis of hypertension Permanent atrial fibrillation (HCC) [I48.21]- Primary Atrial fibrillation documented in this encounter [facility] noteNo assessment information availableWTuscarawas Hospital Work Phone: Evaluation note* Diagnosis Permanent atrial fibrillation (HCC) Atrial fibrillation Asthma-COPD overlap syndrome (HCC) Gastroesophageal reflux disease, unspecified whether esophagitis present Ex-smoker Personal history of tobacco use, presenting hazards to health BPH with obstruction/lower urinary tract symptoms Hypertrophy of prostate with urinary obstruction and other lower urinary tract symptoms (LUTS) Pre-op exam Preoperative examination, unspecified Elevated blood pressure reading without diagnosis of hypertension Hypertension, essential- Primary Unspecified essential hypertension New onset type 2 diabetes mellitus (HCC) SOTO (dyspnea on exertion) Other dyspnea and respiratory abnormality Wheezing Permanent atrial fibrillation (HCC) Atrial fibrillation Tachycardia Tachycardia, unspecified Elevated brain natriuretic peptide (BNP) level Other nonspecific findings on examination of blood Stage 3a chronic kidney disease (HCC) Hyperglycemia Other abnormal glucose Hypertension, essential- Primary Unspecified essential hypertension Permanent atrial fibrillation (HCC) Atrial fibrillation Pulmonary hypertension (HCC) Other chronic pulmonary heart diseases New onset type 2 diabetes mellitus (HCC) Stage 3a chronic kidney disease (HCC) Cerebrovascular accident (CVA), unspecified mechanism (HCC) SOB (shortness of breath) on exertion Shortness of breath Vitamin D deficiency Unspecified vitamin D deficiency Dyslipidemia Other and unspecified hyperlipidemia Fatigue, unspecified type documented in this encounter [facility] note* Diagnosis Permanent atrial fibrillation (HCC) Atrial fibrillation Asthma-COPD overlap syndrome (HCC) Gastroesophageal reflux disease, unspecified whether esophagitis present Ex-smoker Personal history of tobacco use, presenting hazards to health BPH with obstruction/lower urinary tract symptoms Hypertrophy of prostate with urinary obstruction and other lower urinary tract symptoms (LUTS) Pre-op exam Preoperative examination, unspecified Elevated blood pressure reading without diagnosis of hypertension Hypertension, essential- Primary Unspecified essential hypertension New onset type 2 diabetes mellitus (HCC) SOTO (dyspnea on exertion) Other dyspnea and respiratory abnormality Wheezing Permanent atrial fibrillation (HCC) Atrial fibrillation Tachycardia Tachycardia, unspecified Elevated brain natriuretic peptide (BNP) level Other nonspecific findings on examination of blood Stage 3a chronic kidney disease (HCC) Hyperglycemia Other abnormal glucose TIA (transient ischemic attack)- Primary Unspecified transient cerebral ischemia Mild cognitive impairment Mild cognitive impairment, so stated Memory loss Sleep apnea-like behavior History of atrial fibrillation Personal history of other diseases of circulatory system [facility] Diagnosis Permanent atrial fibrillation (HCC) Atrial fibrillation Asthma-COPD overlap syndrome (HCC) Gastroesophageal reflux disease, unspecified whether esophagitis present Ex-smoker Personal history of tobacco use, presenting hazards to health BPH with obstruction/lower urinary tract symptoms Hypertrophy of prostate with urinary obstruction and other lower urinary tract symptoms (LUTS) Pre-op exam Preoperative examination, unspecified Elevated blood pressure reading without diagnosis of hypertension Hypertension, essential- Primary Unspecified essential hypertension New onset type 2 diabetes mellitus (HCC) SOTO (dyspnea on exertion) Other dyspnea and respiratory abnormality Wheezing Permanent atrial fibrillation (HCC) Atrial fibrillation Tachycardia Tachycardia, unspecified Elevated brain natriuretic peptide (BNP) level Other nonspecific findings on examination of blood Stage 3a chronic kidney disease (HCC) Hyperglycemia Other abnormal glucose Injury of head, initial encounter- Primary 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, 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 Long-term (current) use of anticoagulants Laceration without foreign body of right hand, initial encounter Atrial fibrillation, unspecified type (HCC) [facility]* Diagnosis Permanent atrial fibrillation (HCC) Atrial fibrillation Asthma-COPD overlap syndrome (HCC) Gastroesophageal reflux disease, unspecified whether esophagitis present Ex-smoker Personal history of tobacco use, presenting hazards to health BPH with obstruction/lower urinary tract symptoms Hypertrophy of prostate with urinary obstruction and other lower urinary tract symptoms (LUTS) Pre-op exam Preoperative examination, unspecified Elevated blood pressure reading without diagnosis of hypertension Hypertension, essential- Primary Unspecified essential hypertension New onset type 2 diabetes mellitus (HCC) SOTO (dyspnea on exertion) Other dyspnea and respiratory abnormality Wheezing Permanent atrial fibrillation (HCC) Atrial fibrillation Tachycardia Tachycardia, unspecified Elevated brain natriuretic peptide (BNP) level Other nonspecific findings on examination of blood Stage 3a chronic kidney disease (HCC) Hyperglycemia Other abnormal glucose Right eyelid laceration, subsequent encounter- Primary documented in this encounter [facility] note* Diagnosis Permanent atrial fibrillation (HCC) Atrial fibrillation Asthma-COPD overlap syndrome (HCC) Gastroesophageal reflux disease, unspecified whether esophagitis present Ex-smoker Personal history of tobacco use, presenting hazards to health BPH with obstruction/lower urinary tract symptoms Hypertrophy of prostate with urinary obstruction and other lower urinary tract symptoms (LUTS) Pre-op exam Preoperative examination, unspecified Elevated blood pressure reading without diagnosis of hypertension Hypertension, essential- Primary Unspecified essential hypertension New onset type 2 diabetes mellitus (HCC) SOTO (dyspnea on exertion) Other dyspnea and respiratory abnormality Wheezing Permanent atrial fibrillation (HCC) Atrial fibrillation Tachycardia Tachycardia, unspecified Elevated brain natriuretic peptide (BNP) level Other nonspecific findings on examination of blood Stage 3a chronic kidney disease (HCC) Hyperglycemia Other abnormal glucose Laceration of right hand without foreign body, subsequent encounter- Primary documented in this encounter [facility] for referral (narrative)* Outpatient Procedure (Routine) - Closed Specialty Diagnoses / Procedures [facility] Diagnoses Preoperative clearance Procedures ECG COMPLETE ECG ROUTINE ECG W/LEAST 12 LDS W/I&R Crystal Pradhan APRN.CNP [address] [place] [address] [facility] [address] [place] [address] Referral ID Status Reason Start Date Expiration Date V isits Requested Visits Authorized [id number] Closed Auto-Generate d Referral 07/26/2022 07/26/2023 1 1 [facility] for referral (narrative)* Diagnostic Procedure Only (Routine) - Authorized Specialty Diagnoses / Procedures [facility] MOLECULAR & FUNCTIONAL IMAGING Diagnoses Shortness of breath Procedures NM CARDIAC PERF STRESS/EXERCISE MYOCARDIAL SPECT MULTIPLE STUDIES Analisa Nicole MD [address] [facility], [address] [place] [address] Molecular [facility] Functional [facility] [address] [place] [address] Referral ID Status Reason Start Date Expiration Date Visits Requested Visits Authorized [id number] Authorized Auto-Generat ed Referral 09/26/2023 10/11/2024 1 1 * Outpatient Procedure (Routine) - Authorized Specialty Diagnoses / Procedures [facility] Diagnoses Shortness of breath Procedures ECHO ECHO TTHRC R-T 2D W/WOM-MODE COMPL SPEC&COLR D Analisa Nicole MD [address], [address] [place] [address] [facility] [address] [place] [id number] Referral ID Status Reason Start Date Expiration Date Visits Requested Visits Authorized [id number] Authorized Auto-Generat ed Referral 09/26/2023 09/11/2024 1 1 * Outpatient Procedure (Routine) - New Request Specialty Diagnoses / Procedures Referred By Cont[facility] t Referred To Contact [facility] Diagnoses Screening for ischemic heart disease Procedures ECG COMPLETE ECG ROUTINE ECG W/LEAST 12 LDS W/I&R Analisa Nicole MD [address], [address] [place] [address] [facility] [address] [address] Referral ID Status Reason Start Date Expiration Date Visits Requested Visits Authorized [id number] New Request Auto-Generat ed Referral 09/12/2023 09/07/2024 1 1 [facility] for referral (narrative)* Diagnostic Procedure Only (Routine) - New Request Specialty Diagnoses / Procedures Referred By Contac t Referred To Contact XR IMAGING Diagnoses Bilateral hip pain Procedures XR HIP BILATERAL 5V PEL/AP/LAT EACH HIP RADEX HIPS BILATERAL WITH PELVIS MINIMUM 5 VIEWS Jeffrey Zurita MD [address] [place] [address] [place] [address] Referral ID Status Reason Start Date Expiration Date Visits Requested Visits Authorized [id number] New Request Auto-Generat ed Referral 11/10/2023 12/09/2024 1 1 * Diagnostic Procedure Only (Routine) - New Request Specialty Diagnoses / Procedures Referred By Contac t Referred To Contact XR IMAGING Diagnoses Bilateral hip pain Procedures XR KNEE GENERAL 4V AP BOTH/PA BOTH/LAT/MERC RIGHT RADIOLOGIC EXAM KNEE COMPLETE 4/MORE VIEWS Jeffrey Zurita MD [address] [place] [address] [place] [address] Referral ID Status Reason Start Date Expiration Date Visits Requested Visits Authorized [id number] New Request Auto-Generat ed Referral 11/10/2023 12/09/2024 1 1 [facility] for referral (narrative)* Diagnostic Procedure Only (Routine) - Closed Specialty Diagnoses / Procedures Referred By Contac t Referred To Contact XR IMAGING Diagnoses Bilateral hip pain Procedures XR LUMBAR LIMITED 2V AP/LAT RADEX SPINE LUMBOSACRAL 2/3 VIEWS Jeffrey Zurita MD [address] [place] [address] [place] [address] Referral ID Status Reason Start Date Expiration Date V isits Requested Visits Authorized [id number] Closed Auto-Generate d Referral 11/23/2023 12/22/2024 1 1 * Diagnostic Procedure Only (Routine) - Closed Specialty Diagnoses / Procedures Referred By Contac t Referred To Contact XR IMAGING Diagnoses Bilateral hip pain Procedures XR HIP BILATERAL 5V PEL/AP/LAT EACH HIP RADEX HIPS BILATERAL WITH PELVIS MINIMUM 5 VIEWS Jeffrey Zurita MD [address] [place] [address] [place] [address] Referral ID Status Reason Start Date Expiration Date V isits Requested Visits Authorized [id number] Closed Auto-Generate d Referral 11/10/2023 12/09/2024 1 1 * Diagnostic Procedure Only (Routine) - Closed Specialty Diagnoses / Procedures Referred By Contac t Referred To Contact XR IMAGING Diagnoses Bilateral hip pain Procedures XR KNEE GENERAL 4V AP BOTH/PA BOTH/LAT/MERC RIGHT RADIOLOGIC EXAM KNEE COMPLETE 4/MORE VIEWS Jeffrey Zurita MD [address] [place] [address] [place] [address] Referral ID Status Reason Start Date Expiration Date V isits Requested Visits Authorized [id number] Closed Auto-Generate d Referral 11/10/2023 12/09/2024 1 1 [facility] for referral (narrative)* Diagnostic Procedure Only (Urgent) - Closed Specialty Diagnoses / Procedures Referred By Contac t Referred To Contact XR IMAGING Diagnoses Knee injury, right, initial encounter Procedures XR KNEE GENERAL 4V AP BOTH/PA BOTH/LAT/MERC RT KNEE AP-WGT/LAT/MERCHANT Wes Chavez APRN.APPLICATIONS SPECIALIST [address] [place] [address] [place] [address] Referral ID Status Reason Start Date Expiration Date V isits Requested Visits Authorized [id number] Closed Auto-Generate d Referral 10/13/2020 11/12/2021 1 1 [facility] for referral (narrative)* Outpatient Procedure (Routine) - Authorized Specialty Diagnoses / Procedures Referred By Contac t Referred To Contact [facility] Diagnoses Wheezing Asthma-COPD overlap syndrome (HCC) SOB (shortness of breath) on exertion Decreased activity tolerance Productive cough Procedures LUNG VOLUMES Judith Garcia APRN.APPLICATIONS SPECIALIST [address] [place] [address] [facility] [address] [place] [address] Referral ID Status Reason Start Date Expiration Date Visits Requested Visits Authorized [id number] Authorized Auto-Generat ed Referral 11/29/2023 12/28/2024 1 1 * Outpatient Procedure (Routine) - Authorized Specialty Diagnoses / Procedures Referred By Contac t Referred To Contact [facility] Diagnoses Wheezing Asthma-COPD overlap syndrome (HCC) SOB (shortness of breath) on exertion Decreased activity tolerance Productive cough Procedures SPIROMETRY - BASELINE AND POST DILATOR BRNCDILAT RSPSE SPMTRY PRE&POST-BRNCDILAT ADMN Judith Garcia APRN.APPLICATIONS SPECIALIST [address] [place] [address] [facility] [address] [place] [address] Referral ID Status Reason Start Date Expiration Date Visits Requested Visits Authorized [id number] Authorized Auto-Generat ed Referral 11/29/2023 12/28/2024 1 1 * MRI/CT (Routine) - Authorized Specialty Diagnoses / Procedures Referred By Enrrique toussaint Referred To Contact CT IMAGING Diagnoses Wheezing Asthma-COPD overlap syndrome (HCC) SOB (shortness of breath) on exertion Decreased activity tolerance Productive cough Procedures CT CHEST WO IVCON DIAGNOSTIC COMPUTED TOMOGRAPHY THORAX W/O CNTRST Judith Garcia APRN.APPLICATIONS SPECIALIST [address] [place] [address] Ct Imaging [facility] Referral ID Status Reason Start Date Expiration Date Visits Requested Visits Authorized [id number] Authorized Auto-Generat ed Referral 11/29/2023 12/28/2024 1 1 [facility]No reason for referral information availableWTuscarawas Hospital Work Phone: Reason for visit Narrative* Diagnostic Procedure Only (Routine) - Closed Specialty Diagnoses / Procedures Referred By Enrrique toussaint Referred To Contact XR IMAGING Diagnoses Bilateral hip pain Procedures XR KNEE GENERAL 4V AP BOTH/PA BOTH/LAT/MERC RIGHT RADIOLOGIC EXAM KNEE COMPLETE 4/MORE VIEWS Jeffrey Zurita MD [address] [place] [address] Xr Imaging [facility] Referral ID Status Reason Start Date Expiration Date V isits Requested Visits Authorized [id number] Closed Auto-Generate d Referral 11/10/2023 12/09/2024 1 1 [facility] for visit Narrative* Diagnostic Procedure Only (Urgent) - Closed Specialty Diagnoses / Procedures Referred By Contac t Referred To Contact XR IMAGING Diagnoses Knee injury, right, initial encounter Procedures XR KNEE GENERAL 4V AP BOTH/PA BOTH/LAT/MERC RT KNEE AP-WGT/LAT/MERCHANT Wes Chavez APRN.APPLICATIONS SPECIALIST [address] [place] [address] [place] [address] Referral ID Status Reason Start Date Expiration Date V isits Requested Visits Authorized [id number] Closed Auto-Generate d Referral 10/13/2020 11/12/2021 1 1 [facility] for visit Narrative* Diagnostic Procedure Only (Routine) - Closed Specialty Diagnoses / Procedures Referred By Contac t Referred To Contact MOLECULAR & FUNCTIONAL IMAGING Diagnoses Shortness of breath Procedures NM CARDIAC PERF STRESS/EXERCISE MYOCARDIAL SPECT MULTIPLE STUDIES Analisa Nicole MD [address] [facility], [address] [place] [address] Molecular [facility] Functional Imaging [address] [place] [id number] Referral ID Status Reason Start Date Expiration Date V isits Requested Visits Authorized [id number] Closed Auto-Generate d Referral 09/26/2023 10/11/2024 1 1 [facility] for visit Narrative* Diagnostic Procedure Only (Routine) - Closed Specialty Diagnoses / Procedures Referred By Contac t Referred To Contact US IMAGING Diagnoses Hospital discharge follow-up Bilateral leg edema Procedures US DVT LOWER BILATERAL DUP-SCAN XTR VEINS COMPLETE BILATERAL STUDY Radha Berman, FOUNTAIN JERK.APPLICATIONS SPECIALIST [address] [place] [address] Phone: tel: fax: [place] [address] Referral ID Status Reason Start Date Expiration Date V isits Requested Visits Authorized [id number] Closed Auto-Generate d Referral 05/16/2024 06/15/2025 1 1 [facility] Summary Purpose Family History No Family History Records Found Relationship Condition Age at Onset Recorded Date/T rahul mother Malignant neoplasm of breast Unknown father Malignant neoplasm of colon Unknown Malignant melanoma Unknown brother Chronic obstructive pulmonary disease Unk nown grandfather Multiple myeloma Unknown Advance Directives No Advanced Directives Records FoundDocuments on File Type Date Recorded Patient Voice Over Artist Expl anation Advance Directive(s) 08/10/2017 8:34 AM Advance Directive Response Recorded Date/ Time Do you have a Healthcare Power of Second Cutter? Yes September 11, 2024 10:22am Documents on File Type Date Recorded Patient Voice Over Artist Expl anation Advance Directive(s) 09/27/2024 5:29 PM Advance Directive(s) 09/26/2024 8:52 AM Medications Administered Section Inactive Administered Medications - up to 3 most recent administrations Medication Order MAR Action Action Date Dose Rate Site lidocaine urojet 2 % 6 mL topical gel (GLYDO) 6 mL, URETHRAL, ONCE, 1 dose, On Tue07/20/22 at 1100, Prior to UDS Procedure Given by LIP 07/20/2022 11:32 AM EDT 6 mL Other sulfamethoxazole-trimethoprim 800-160 mg 1 tablet (BACTRIM DS) 1 tablet, ORAL, ONCE, 1 dose, On Tue07/20/22 at 1100, One tab prior to procedure, Please document the antimicrobial indication: Prophylaxis Given 07/20/2022 11:32 AM EDT 1 tablet Oral Inactive Administered Medications - up to 3 most recent administrations Medication Order MAR Action Action Date Dose Rate Site lidocaine urojet 2 % 6 mL topical gel (GLYDO) 6 mL, URETHRAL, ONCE, 1 dose, On Tue10/19/22 at 1100, Prior to UDS Procedure Given by LIP 10/19/2022 11:49 AM EDT 6 mL Other sulfamethoxazole-trimethoprim 800-160 mg 1 tablet (BACTRIM DS) 1 tablet, ORAL, ONCE, 1 dose, On Tue10/19/22 at 1100, One tab prior to procedure, Please document the antimicrobial indication: Prophylaxis Given 10/19/2022 11:49 AM EDT 1 tablet Oral Reason for Referral Specialty Diagnoses / Procedures Referred By Enrrique toussaint Referred To Contact Gastroenterology Diagnoses Gastroesophageal reflux disease without esophagitis Procedures CONSULT TO GASTROENTEROLOGY OFFICE/[facility] 60-74 MINUTES Radha Berman APRN.APPLICATIONS SPECIALIST [address], [place] [address] Referral ID Status Reason Start Date Expiration Date Visits Requested Visits Authorized [id number] Pending Review PCP Requested Referral 10/14/2022 10/14/2023 1 1 Specialty Diagnoses / Procedures Referred By Contac t Referred To Contact [facility] Diagnoses Lumbar spondylosis Procedures [facility] 60 MINUTES Jeffrey Zurita MD [address] [place] [address] Referral ID Status Reason Start Date Expiration Date Visits Requested Visits Authorized [id number] Authorized PCP Requested Referral 11/23/2023 11/22/2024 1 1 Specialty Diagnoses / Procedures Referred By Contac t Referred To Contact XR IMAGING Diagnoses Bilateral hip pain Procedures XR LUMBAR LIMITED 2V AP/LAT RADEX SPINE LUMBOSACRAL 2/3 VIEWS Jeffrey Zurita MD [address] [place] [address] [place] [address] Referral ID Status Reason Start Date Expiration Date V isits Requested Visits Authorized [id number] Closed Auto-Generate d Referral 11/23/2023 12/22/2024 1 1 Specialty Diagnoses / Procedures Referred By Contac t Referred To Contact Pulmonary Disease Diagnoses Lung nodule Procedures CONSULT TO [facility] OFFICE/[facility] 60 MINUTES Judith Garcia, NEHA.[employer]PLICATIONS SPECIALIST [address] [place] [address] Referral ID Status Reason Start Date Expiration Date Visits Requested Visits Authorized [id number] Authorized PCP Requested Referral 12/12/2024 1 1 Chief Complaint and Reason for Visit Chief Complaint Admit Date fallSeptember 11, 2024 10:1 3am Additional Source Comments (unrecognized sect ion and content) No Status Records FoundNo Status Records FoundNo Status Records FoundNo Status Records FoundNo Status Records FoundNo Status Records Found INFORMATION SOURCE (unrecogn ized section and content) DATE CREATED AUTHOR 11/28/2017 Zari Rios [employer] DATE CREATED AUTHOR AUTHOR'S ORGANIZ ATION 10/03/2023 [facility] DATE CREATED AUTHOR AUTHOR'S ORGANIZ ATION 11/26/2023 [facility] DATE CREATED AUTHOR AUTHOR'S ORGANIZ ATION 01/26/2024 [facility] DATE CREATED AUTHOR AUTHOR'S ORGANIZ ATION 09/20/2024 [facility] DATE CREATED AUTHOR AUTHOR'S ORGANIZ ATION 10/13/2024 [facility] Source Comments (unrecognize d section and content) In the event this informatio n is protected by the Federal Confidentiality of Alcohol and Drug Abuse Patient Records regulations: The Federal rules restrict any use of the information to criminally investigate or prosecute any alcohol or drug abuse patient.[facility] the event this information is protected by the Federal Confidentiality of Alcohol and Drug Abuse Patient Records regulations: The Federal rules restrict any use of the information to criminally investigate or prosecute any alcohol or drug abuse patient.[facility]In the event this information is protected by the Federal Confidentiality of Alcohol and Drug Abuse Patient Records regulations: The Federal rules restrict any use of the information to criminally investigate or prosecute any alcohol or drug abuse patient.[facility]In the event this information is protected by the Federal Confidentiality of Alcohol and Drug Abuse Patient Records regulations: The Federal rules restrict any use of the information to criminally investigate or prosecute any alcohol or drug abuse patient.[facility]In the event this information is protected by the Federal Confidentiality of Alcohol and Drug Abuse Patient Records regulations: The Federal rules restrict any use of the information to criminally investigate or prosecute any alcohol or drug abuse patient.[facility]In the event this information is protected by the Federal Confidentiality of Alcohol and Drug Abuse Patient Records regulations: The Federal rules restrict any use of the information to criminally investigate or prosecute any alcohol or drug abuse patient.[facility]In the event this information is protected by the Federal Confidentiality of Alcohol and Drug Abuse Patient Records regulations: The Federal rules restrict any use of the information to criminally investigate or prosecute any alcohol or drug abuse patient.[facility]In the event this information is protected by the Federal Confidentiality of Alcohol and Drug Abuse Patient Records regulations: The Federal rules restrict any use of the information to criminally investigate or prosecute any alcohol or drug abuse patient.[facility] the event this information is protected by the Federal Confidentiality of Alcohol and Drug Abuse Patient Records regulations: The Federal rules restrict any use of the information to criminally investigate or prosecute any alcohol or drug abuse patient.[facility]In the event this information is protected by the Federal Confidentiality of Alcohol and Drug Abuse Patient Records regulations: The Federal rules restrict any use of the information to criminally investigate or prosecute any alcohol or drug abuse patient.[facility]In the event this information is protected by the Federal Confidentiality of Alcohol and Drug Abuse Patient Records regulations: The Federal rules restrict any use of the information to criminally investigate or prosecute any alcohol or drug abuse patient.[facility] the event this information is protected by the Federal Confidentiality of Alcohol and Drug Abuse Patient Records regulations: The Federal rules restrict any use of the information to criminally investigate or prosecute any alcohol or drug abuse patient.[facility] the event this information is protected by the Federal Confidentiality of Alcohol and Drug Abuse Patient Records regulations: The Federal rules restrict any use of the information to criminally investigate or prosecute any alcohol or drug abuse patient.[facility]In the event this information is protected by the Federal Confidentiality of Alcohol and Drug Abuse Patient Records regulations: The Federal rules restrict any use of the information to criminally investigate or prosecute any alcohol or drug abuse patient.[facility]In the event this information is protected by the Federal Confidentiality of Alcohol and Drug Abuse Patient Records regulations: The Federal rules restrict any use of the information to criminally investigate or prosecute any alcohol or drug abuse patient.[facility]In the event this information is protected by the Federal Confidentiality of Alcohol and Drug Abuse Patient Records regulations: The Federal rules restrict any use of the information to criminally investigate or prosecute any alcohol or drug abuse patient.[facility]In the event this information is protected by the Federal Confidentiality of Alcohol and Drug Abuse Patient Records regulations: The Federal rules restrict any use of the information to criminally investigate or prosecute any alcohol or drug abuse patient.[facility]In the event this information is protected by the Federal Confidentiality of Alcohol and Drug Abuse Patient Records regulations: The Federal rules restrict any use of the information to criminally investigate or prosecute any alcohol or drug abuse patient.[facility]In the event this information is protected by the Federal Confidentiality of Alcohol and Drug Abuse Patient Records regulations: The Federal rules restrict any use of the information to criminally investigate or prosecute any alcohol or drug abuse patient.[facility]In the event this information is protected by the Federal Confidentiality of Alcohol and Drug Abuse Patient Records regulations: The Federal rules restrict any use of the information to criminally investigate or prosecute any alcohol or drug abuse patient.[facility] ClinicIn the event this information is protected by the Federal Confidentiality of Alcohol and Drug Abuse Patient Records regulations: The Federal rules restrict any use of the information to criminally investigate or prosecute any alcohol or drug abuse patient.[facility] ClinicIn the event this information is protected by the Federal Confidentiality of Alcohol and Drug Abuse Patient Records regulations: The Federal rules restrict any use of the information to criminally investigate or prosecute any alcohol or drug abuse patient.[facility]In the event this information is protected by the Federal Confidentiality of Alcohol and Drug Abuse Patient Records regulations: The Federal rules restrict any use of the information to criminally investigate or prosecute any alcohol or drug abuse patient.[facility]In the event this information is protected by the Federal Confidentiality of Alcohol and Drug Abuse Patient Records regulations: The Federal rules restrict any use of the information to criminally investigate or prosecute any alcohol or drug abuse patient.[facility]In the event this information is protected by the Federal Confidentiality of Alcohol and Drug Abuse Patient Records regulations: The Federal rules restrict any use of the information to criminally investigate or prosecute any alcohol or drug abuse patient.[facility]In the event this information is protected by the Federal Confidentiality of Alcohol and Drug Abuse Patient Records regulations: The Federal rules restrict any use of the information to criminally investigate or prosecute any alcohol or drug abuse patient.[facility]In the event this information is protected by the Federal Confidentiality of Alcohol and Drug Abuse Patient Records regulations: The Federal rules restrict any use of the information to criminally investigate or prosecute any alcohol or drug abuse patient.[facility]In the event this information is protected by the Federal Confidentiality of Alcohol and Drug Abuse Patient Records regulations: The Federal rules restrict any use of the information to criminally investigate or prosecute any alcohol or drug abuse patient.[facility]In the event this information is protected by the Federal Confidentiality of Alcohol and Drug Abuse Patient Records regulations: The Federal rules restrict any use of the information to criminally investigate or prosecute any alcohol or drug abuse patient.[facility]In the event this information is protected by the Federal Confidentiality of Alcohol and Drug Abuse Patient Records regulations: The Federal rules restrict any use of the information to criminally investigate or prosecute any alcohol or drug abuse patient.[facility]In the event this information is protected by the Federal Confidentiality of Alcohol and Drug Abuse Patient Records regulations: The Federal rules restrict any use of the information to criminally investigate or prosecute any alcohol or drug abuse patient.[facility]In the event this information is protected by the Federal Confidentiality of Alcohol and Drug Abuse Patient Records regulations: The Federal rules restrict any use of the information to criminally investigate or prosecute any alcohol or drug abuse patient.[facility]In the event this information is protected by the Federal Confidentiality of Alcohol and Drug Abuse Patient Records regulations: The Federal rules restrict any use of the information to criminally investigate or prosecute any alcohol or drug abuse patient.[facility]In the event this information is protected by the Federal Confidentiality of Alcohol and Drug Abuse Patient Records regulations: The Federal rules restrict any use of the information to criminally investigate or prosecute any alcohol or drug abuse patient.[facility]In the event this information is protected by the Federal Confidentiality of Alcohol and Drug Abuse Patient Records regulations: The Federal rules restrict any use of the information to criminally investigate or prosecute any alcohol or drug abuse patient.[facility]In the event this information is protected by the Federal Confidentiality of Alcohol and Drug Abuse Patient Records regulations: The Federal rules restrict any use of the information to criminally investigate or prosecute any alcohol or drug abuse patient.[facility] ClinicIn the event this information is protected by the Federal Confidentiality of Alcohol and Drug Abuse Patient Records regulations: The Federal rules restrict any use of the information to criminally investigate or prosecute any alcohol or drug abuse patient.[facility]In the event this information is protected by the Federal Confidentiality of Alcohol and Drug Abuse Patient Records regulations: The Federal rules restrict any use of the information to criminally investigate or prosecute any alcohol or drug abuse patient.[facility]In the event this information is protected by the Federal Confidentiality of Alcohol and Drug Abuse Patient Records regulations: The Federal rules restrict any use of the information to criminally investigate or prosecute any alcohol or drug abuse patient.[facility]In the event this information is protected by the Federal Confidentiality of Alcohol and Drug Abuse Patient Records regulations: The Federal rules restrict any use of the information to criminally investigate or prosecute any alcohol or drug abuse patient.[facility]In the event this information is protected by the Federal Confidentiality of Alcohol and Drug Abuse Patient Records regulations: The Federal rules restrict any use of the information to criminally investigate or prosecute any alcohol or drug abuse patient.[facility]In the event this information is protected by the Federal Confidentiality of Alcohol and Drug Abuse Patient Records regulations: The Federal rules restrict any use of the information to criminally investigate or prosecute any alcohol or drug abuse patient.[facility]In the event this information is protected by the Federal Confidentiality of Alcohol and Drug Abuse Patient Records regulations: The Federal rules restrict any use of the information to criminally investigate or prosecute any alcohol or drug abuse patient.[facility]In the event this information is protected by the Federal Confidentiality of Alcohol and Drug Abuse Patient Records regulations: The Federal rules restrict any use of the information to criminally investigate or prosecute any alcohol or drug abuse patient.[facility]In the event this information is protected by the Federal Confidentiality of Alcohol and Drug Abuse Patient Records regulations: The Federal rules restrict any use of the information to criminally investigate or prosecute any alcohol or drug abuse patient.[facility]In the event this information is protected by the Federal Confidentiality of Alcohol and Drug Abuse Patient Records regulations: The Federal rules restrict any use of the information to criminally investigate or prosecute any alcohol or drug abuse patient.[facility]In the event this information is protected by the Federal Confidentiality of Alcohol and Drug Abuse Patient Records regulations: The Federal rules restrict any use of the information to criminally investigate or prosecute any alcohol or drug abuse patient.[facility]In the event this information is protected by the Federal Confidentiality of Alcohol and Drug Abuse Patient Records regulations: The Federal rules restrict any use of the information to criminally investigate or prosecute any alcohol or drug abuse patient.[facility]In the event this information is protected by the Federal Confidentiality of Alcohol and Drug Abuse Patient Records regulations: The Federal rules restrict any use of the information to criminally investigate or prosecute any alcohol or drug abuse patient.[facility]In the event this information is protected by the Federal Confidentiality of Alcohol and Drug Abuse Patient Records regulations: The Federal rules restrict any use of the information to criminally investigate or prosecute any alcohol or drug abuse patient.[facility]In the event this information is protected by the Federal Confidentiality of Alcohol and Drug Abuse Patient Records regulations: The Federal rules restrict any use of the information to criminally investigate or prosecute any alcohol or drug abuse patient.[facility]In the event this information is protected by the Federal Confidentiality of Alcohol and Drug Abuse Patient Records regulations: The Federal rules restrict any use of the information to criminally investigate or prosecute any alcohol or drug abuse patient.[facility]In the event this information is protected by the Federal Confidentiality of Alcohol and Drug Abuse Patient Records regulations: The Federal rules restrict any use of the information to criminally investigate or prosecute any alcohol or drug abuse patient.[facility]In the event this information is protected by the Federal Confidentiality of Alcohol and Drug Abuse Patient Records regulations: The Federal rules restrict any use of the information to criminally investigate or prosecute any alcohol or drug abuse patient.[facility]In the event this information is protected by the Federal Confidentiality of Alcohol and Drug Abuse Patient Records regulations: The Federal rules restrict any use of the information to criminally investigate or prosecute any alcohol or drug abuse patient.[facility]In the event this information is protected by the Federal Confidentiality of Alcohol and Drug Abuse Patient Records regulations: The Federal rules restrict any use of the information to criminally investigate or prosecute any alcohol or drug abuse patient.[facility]In the event this information is protected by the Federal Confidentiality of Alcohol and Drug Abuse Patient Records regulations: The Federal rules restrict any use of the information to criminally investigate or prosecute any alcohol or drug abuse patient.[facility] ClinicIn the event this information is protected by the Federal Confidentiality of Alcohol and Drug Abuse Patient Records regulations: The Federal rules restrict any use of the information to criminally investigate or prosecute any alcohol or drug abuse patient.[facility] the event this information is protected by the Federal Confidentiality of Alcohol and Drug Abuse Patient Records regulations: The Federal rules restrict any use of the information to criminally investigate or prosecute any alcohol or drug abuse patient.[facility]In the event this information is protected by the Federal Confidentiality of Alcohol and Drug Abuse Patient Records regulations: The Federal rules restrict any use of the information to criminally investigate or prosecute any alcohol or drug abuse patient.[facility]In the event this information is protected by the Federal Confidentiality of Alcohol and Drug Abuse Patient Records regulations: The Federal rules restrict any use of the information to criminally investigate or prosecute any alcohol or drug abuse patient.[facility]In the event this information is protected by the Federal Confidentiality of Alcohol and Drug Abuse Patient Records regulations: The Federal rules restrict any use of the information to criminally investigate or prosecute any alcohol or drug abuse patient.[facility]In the event this information is protected by the Federal Confidentiality of Alcohol and Drug Abuse Patient Records regulations: The Federal rules restrict any use of the information to criminally investigate or prosecute any alcohol or drug abuse patient.[facility]In the event this information is protected by the Federal Confidentiality of Alcohol and Drug Abuse Patient Records regulations: The Federal rules restrict any use of the information to criminally investigate or prosecute any alcohol or drug abuse patient.[facility]In the event this information is protected by the Federal Confidentiality of Alcohol and Drug Abuse Patient Records regulations: The Federal rules restrict any use of the information to criminally investigate or prosecute any alcohol or drug abuse patient.[facility]In the event this information is protected by the Federal Confidentiality of Alcohol and Drug Abuse Patient Records regulations: The Federal rules restrict any use of the information to criminally investigate or prosecute any alcohol or drug abuse patient.[facility]In the event this information is protected by the Federal Confidentiality of Alcohol and Drug Abuse Patient Records regulations: The Federal rules restrict any use of the information to criminally investigate or prosecute any alcohol or drug abuse patient.[facility]In the event this information is protected by the Federal Confidentiality of Alcohol and Drug Abuse Patient Records regulations: The Federal rules restrict any use of the information to criminally investigate or prosecute any alcohol or drug abuse patient.[facility]In the event this information is protected by the Federal Confidentiality of Alcohol and Drug Abuse Patient Records regulations: The Federal rules restrict any use of the information to criminally investigate or prosecute any alcohol or drug abuse patient.[facility]In the event this information is protected by the Federal Confidentiality of Alcohol and Drug Abuse Patient Records regulations: The Federal rules restrict any use of the information to criminally investigate or prosecute any alcohol or drug abuse patient.[facility]In the event this information is protected by the Federal Confidentiality of Alcohol and Drug Abuse Patient Records regulations: The Federal rules restrict any use of the information to criminally investigate or prosecute any alcohol or drug abuse patient.[facility]In the event this information is protected by the Federal Confidentiality of Alcohol and Drug Abuse Patient Records regulations: The Federal rules restrict any use of the information to criminally investigate or prosecute any alcohol or drug abuse patient.[facility]In the event this information is protected by the Federal Confidentiality of Alcohol and Drug Abuse Patient Records regulations: The Federal rules restrict any use of the information to criminally investigate or prosecute any alcohol or drug abuse patient.[facility]In the event this information is protected by the Federal Confidentiality of Alcohol and Drug Abuse Patient Records regulations: The Federal rules restrict any use of the information to criminally investigate or prosecute any alcohol or drug abuse patient.[facility]In the event this information is protected by the Federal Confidentiality of Alcohol and Drug Abuse Patient Records regulations: The Federal rules restrict any use of the information to criminally investigate or prosecute any alcohol or drug abuse patient.[facility]In the event this information is protected by the Federal Confidentiality of Alcohol and Drug Abuse Patient Records regulations: The Federal rules restrict any use of the information to criminally investigate or prosecute any alcohol or drug abuse patient.[facility]In the event this information is protected by the Federal Confidentiality of Alcohol and Drug Abuse Patient Records regulations: The Federal rules restrict any use of the information to criminally investigate or prosecute any alcohol or drug abuse patient.[facility] Care Teams (unrecognized sec tion and content) Roving Technician Relationship Specialty Start Date End Date Dipak Aguilar, DO [address] [facility] [place] [address] PCP - General Family Practice 11/10/15 Roving Technician Relationship Specialty Start Date End Date Dipak Aguilar, DO [address] [facility] [place] [address] PCP - General Family Practice 11/10/15 Roving Technician Relationship Specialty Start Date End Date Dipak Aguilar DO [address] [facility] [place] [address] PCP - General Family Medicine 11/10/15 Roving Technician Relationship Specialty Start Date End Date Dipak Aguilar DO [address] [facility] [place] [address] PCP - General Family Medicine 11/10/15 Roving Technician Relationship Specialty Start Date End Date Dipak Aguilar, DO [address] [facility] [place] [address] PCP - General Family Medicine 11/10/15 Roving Technician Relationship Specialty Start Date End Date Dipak Aguilar, DO [address] [facility] [place] [address] PCP - General Family Medicine 11/10/15 Roving Technician Relationship Specialty Start Date End Date Dipak Aguilar, DO [address] [facility] [place] [address] PCP - General Family Medicine 11/10/15 Roving Technician Relationship Specialty Start Date End Date Dipak Aguilar, DO [address] [place] [address] PCP - General Family Medicine 11/10/15 Roving Technician Relationship Specialty Start Date End Date Dipak Aguilar, DO [address] [place] [address] PCP - General Family Medicine 11/10/15 Roving Technician Relationship Specialty Start Date End Date Dipak Aguilar, DO [address] [place] [address] PCP - General Family Medicine 11/10/15 Roving Technician Relationship Specialty Start Date End Date Dipak Aguilar, DO [address] [place] [address] PCP - General Family Medicine 11/10/15 Roving Technician Relationship Specialty Start Date End Date Dipak Aguilar, DO [address] [place] [address] PCP - General Family Medicine 11/10/15 Roving Technician Relationship Specialty Start Date End Date Dipak Aguilar, DO [address] [place] [address] PCP - General Family Medicine 11/10/15 Roving Technician Relationship Specialty Start Date End Date Dipak Aguilar, DO [address] [place] [address] PCP - General Family Medicine 11/10/15 Roving Technician Relationship Specialty Start Date End Date Dipak Aguilar, DO [address] [place] [address] PCP - General Family Medicine 11/10/15 Roving Technician Relationship Specialty Start Date End Date Dipak Aguilar DO [address] [place] [address] PCP - General Family Medicine 11/10/15 Roving Technician Relationship Specialty Start Date End Date Dipak Aguilar, [address] [place] [address] PCP - General Family Medicine 11/10/15 Roving Technician Relationship Specialty Start Date End Date Dipak Aguilar, [address] [place] [address] PCP - General Family Medicine 11/10/15 Roving Technician Relationship Specialty Start Date End Date Dipak Aguilar DO [address] [place] [address] PCP - General Family Medicine 11/10/15 Roving Technician Relationship Specialty Start Date End Date Dipak Aguilar DO [address] [place] [address] PCP - General Family Medicine 11/10/15 Roving Technician Relationship Specialty Start Date End Date Dipak Aguilar DO [address] [place] [address] PCP - General Family Medicine 11/10/15 Roving Technician Relationship Specialty Start Date End Date Dipak Aguilar DO [address] [place] [address] PCP - General Family Medicine 11/10/15 Roving Technician Relationship Specialty Start Date End Date Dipak Aguilar DO [address] [place] [address] PCP - General Family Medicine 11/10/15 Roving Technician Relationship Specialty Start Date End Date Dipak Aguilar DO [address] [place] [address] PCP - General Family Medicine 11/10/15 Roving Technician Relationship Specialty Start Date End Date Dipak Aguilar DO [address] [place] [address] PCP - General Family Medicine 11/10/15 Roving Technician Relationship Specialty Start Date End Date Dipak Aguilar DO [address] [place] [address] PCP - General Family Medicine 11/10/15 Roving Technician Relationship Specialty Start Date End Date Dipak Aguilar DO [address] [place] [address] PCP - General Family Medicine 11/10/15 Roving Technician Relationship Specialty Start Date End Date Dipak Aguilar DO [address] [place] [address] PCP - General Family Medicine 11/10/15 Roving Technician Relationship Specialty Start Date End Date Dipak Aguilar DO [address] [place] [address] PCP - General Family Medicine 11/10/15 Roving Technician Relationship Specialty Start Date End Date Dipak Aguilar DO [address] [place] [address] PCP - General Family Medicine 11/10/15 Roving Technician Relationship Specialty Start Date End Date Dipak Aguilar DO [address] [place] [address] PCP - General Family Medicine 11/10/15 Ananya Corbin, LUPE [address] [id number] Tempering Oven Operator Family Medicine 10/02/20 8/03/13 Roving Technician Relationship Specialty Start Date End Date Dipak Aguilar DO [address] [place] [address] PCP - General Family Medicine 11/10/15 Roving Technician Relationship Specialty Start Date End Date Dipak Aguilar DO [address] [place] [address] PCP - General Family Medicine 11/10/15 Roving Technician Relationship Specialty Start Date End Date Dipak Aguilar DO [address] [place] [address] PCP - General Family Medicine 11/10/15 Roving Technician Relationship Specialty Start Date End Date Dipak Aguilar DO [address] [place] [address] PCP - General Family Medicine 11/10/15 Roving Technician Relationship Specialty Start Date End Date Dipak Aguilar DO [address] [place] [address] PCP - General Family Medicine 11/10/15 Roving Technician Relationship Specialty Start Date End Date Dipak Aguilar DO [address] [place] [address] PCP - General Family Medicine 11/10/15 Roving Technician Relationship Specialty Start Date End Date Dipka Aguilar DO [address] [place] [address] PCP - General Family Medicine 11/10/15 Roving Technician Relationship Specialty Start Date End Date Dipak Aguilar DO [address] [place] [address] PCP - General Family Medicine 11/10/15 Roving Technician Relationship Specialty Start Date End Date Dipak Aguilar DO [address] [place] [address] PCP - General Family Medicine 11/10/15 Radha Berman, FOUNTAIN JERK.APPLICATIONS SPECIALIST [address] [place] [address] Client Service Administrator Family Medicine 01/29/24 Judith Garcia, FOUNTAIN JERK.APPLICATIONS SPECIALIST [address] [place] [address] [facility] Roving Technician Relationship Specialty Start Date End Date Dipak Aguilar DO [address] [place] [address] PCP - General Family Medicine 11/10/15 Radha Berman, FOUNTAIN JERK.APPLICATIONS SPECIALIST [address] [place] [address] Client Service Administrator Family Medicine 01/29/24 Judith Garcia, FOUNTAIN JERK.APPLICATIONS SPECIALIST [address] [facility] [place] [address] [facility] 01/29/24 Roving Technician Relationship Specialty Start Date End Date Dipak Aguilar DO [address] [facility] [place] [address] PCP - General Family Medicine 11/10/15 Judith Garcia, FOUNTAIN JERK.APPLICATIONS SPECIALIST [address] [place] [address] [facility] 01/29/24 Roving Technician Relationship Specialty Start Date End Date Dipak Aguilar DO [address] [place] [address] PCP - General Family Medicine 11/10/15 JoseJudith, FOUNTAIN JERK.APPLICATIONS SPECIALIST [address] [place] [address] [facility] 01/29/24 Roving Technician Relationship Specialty Start Date End Date Dipak Aguilar DO [address] [place] [address] PCP - General Family Medicine 11/10/15 JoseJudith, FOUNTAIN JERK.APPLICATIONS SPECIALIST [address] [place] [address] [facility] 01/29/24 Roving Technician Relationship Specialty Start Date End Date Dipak Aguilar DO [address] [place] [address] PCP - General Family Medicine 11/10/15 JoseJudith, FOUNTAIN JERK.APPLICATIONS SPECIALIST [address] [place] [address] [facility] 01/29/24 Roving Technician Relationship Specialty Start Date End Date Dipak Aguilar DO [address] [place] [address] PCP - General Family Medicine 11/10/15 JoseJudith, FOUNTAIN JERK.APPLICATIONS SPECIALIST [address] [place] [address] [facility] 01/29/24 Roving Technician Relationship Specialty Start Date End Date Dipak Aguilar DO [address] [facility] [place] [address] PCP - General Family Medicine 11/10/15 Judith Garcia, FOUNTAIN JERK.APPLICATIONS SPECIALIST [address] [facility] [place] [address] [facility] 01/29/24 Roving Technician Relationship Specialty Start Date End Date Dipak Aguilar DO [address] [facility] [place] [address] PCP - General Family Medicine 11/10/15 Judith Garcia, FOUNTAIN JERK.APPLICATIONS SPECIALIST [address] [facility] [place] [address] [facility] 01/29/24 Roving Technician Relationship Specialty Start Date End Date Dipak Aguilar DO [address] [facility] [place] [address] PCP - General Family Medicine 11/10/15 JoseJudith, FOUNTAIN JERK.APPLICATIONS SPECIALIST [address] [facility] [place] [address] [facility] 01/29/24 Roving Technician Relationship Specialty Start Date End Date Dipak Aguilar DO [address] [facility] [place] [address] PCP - General Family Medicine 11/10/15 JoseJudith, FOUNTAIN JERK.APPLICATIONS SPECIALIST [address] [facility] [place] [address] [facility] 01/29/24 Roving Technician Relationship Specialty Start Date End Date Dipak Aguilar DO [address] [place] [address] PCP - General Family Medicine 11/10/15 JoseJudith, FOUNTAIN JERK.APPLICATIONS SPECIALIST [address] [place] [address] Client Service Administrator Family [facility] 01/29/24 Roving Technician Relationship Specialty Start Date End Date Dipak Aguilar DO [address] [place] [address] PCP - General Family Medicine 11/10/15 JoseJudith, FOUNTAIN JERK.APPLICATIONS SPECIALIST [address] [place] [address] Client Service Administrator Family [facility] 01/29/24 Roving Technician Relationship Specialty Start Date End Date Dipak Aguilar DO [address] [place] [address] PCP - General Family Medicine 11/10/15 JoseJudith, FOUNTAIN JERK.APPLICATIONS SPECIALIST [address] [place] [address] Client Service Administrator Family [facility] 01/29/24 Roving Technician Relationship Specialty Start Date End Date Dipak Aguilar DO [address] [place] [address] PCP - General Family Medicine 11/10/15 JoseJudith, FOUNTAIN JERK.APPLICATIONS SPECIALIST [address] [place] [address] Client Service Administrator Family [facility] 01/29/24 Roving Technician Relationship Specialty Start Date End Date Dipak Aguilar DO [address] [place] [address] PCP - General Family Medicine 11/10/15 JoseJudith, FOUNTAIN JERK.APPLICATIONS SPECIALIST [address] [place] [address] [facility] 01/29/24 Shayla Hines, FOUNTAIN JERK.APPLICATIONS SPECIALIST [address] [place] [address] [facility] 08/06/24 Roving Technician Relationship Specialty Start Date End Date Dipak Aguilar DO [address] [place] [address] PCP - General Family Medicine 11/10/15 [facility] FOUNTAIN JERK.APPLICATIONS SPECIALIST [address] [place] [address] [facility] 01/29/24 Shayla Hines, FOUNTAIN JERK.APPLICATIONS SPECIALIST [address] [place] [address] [facility] 08/06/24 Team Status: Active Member Role/Relationship Status Dates Dr. Dipak Aguilar DO Primary Care Provider Active Team Status: Inactive Member Role/Relationship Status Dates Dr. Dipak Aguilar DO Primary Care Provider Active Start: September 11, 2024 End: September 11, 2024 Dr. Sukhdev Mark MD Emergency Provider Active Sta rt: September 11, 2024 End: September 11, 2024 Roving Technician Relationship Specialty Start Date End Date Dipak Aguilar DO [address] [facility], [place] [address] PCP - General Family Medicine 11/10/15 [facility], FOUNTAIN JERK.APPLICATIONS SPECIALIST [address] [place] [address] Client Service Administrator Family [facility] 01/29/24 Shayla Hines, FOUNTAIN JERK.APPLICATIONS SPECIALIST [address] [place] [address] [facility] 08/06/24 Roving Technician Relationship Specialty Start Date End Date Dipak Aguilar DO [address] [place] [address] PCP - General Family Medicine 11/10/15 [facility], FOUNTAIN JERK.APPLICATIONS SPECIALIST [address] [place] [address] [facility] 01/29/24 Shayla Hines, FOUNTAIN JERK.APPLICATIONS SPECIALIST [address] [place] [address] [facility] 08/06/24 Roving Technician Relationship Specialty Start Date End Date Dipak Aguilar DO [address] [place] [address] PCP - General Family Medicine 11/10/15 [facility], FOUNTAIN JERK.APPLICATIONS SPECIALIST [address] [place] [address] [facility] 01/29/24 Shayla Hines, FOUNTAIN JERK.APPLICATIONS SPECIALIST [address] [place] [address] [facility] 08/06/24 Roving Technician Relationship Specialty Start Date End Date Dipak Aguilar DO [address] [place], [place] [address] PCP - General Family Medicine 11/10/15 Judith Garcia APRN.APPLICATIONS SPECIALIST [address] [place], [place] [address] Client Service Administrator Family Medicine 01/29/24 Shayla Hines, FOUNTAIN JERK.APPLICATIONS SPECIALIST [address] [place], [place] [address] [facility] 08/06/24 Reason for Visit (unrecogniz ed section and content) Reason Comments Forms Reason Comments Imm/Inj Reason Comments Results Reason Comments sore on chest X 3 weeks Reason Comments Patient Update Reason Comments Ear Pain Pt reported (RT) ear pain, x1 wk. Reason Comments Benign Prostatic Hypertrophy Reason Comments Cystoscopy-1 Reason Comments medical clearance form Reason Comments Surgery Scheduled Reason Comments Pre-Op Exam Reason Onset Date Comments Personnel Arbitrator - Hospital Follow Up 08/05/2022 Reason Comments Catheter Removal Reason Comments CARD Follow Up Annual Reason Comments Medication Problem Reason Comments Urinary Frequency Nocturia Difficulty Urinating Reason Comments requesting a GI referral Reason Onset Date Comments Personnel Arbitrator - Hospital Follow Up 10/20/2022 Reason Comments ISC Teaching Reason Comments Refill Request Reason Onset Date Comments ACM LOW RN 05/02/[address] of payor Reason Comments New Patient Reason Onset Date Comments Refill Request 11/01/2023 Reason Onset Date Comments Refill Request 11/14/2023 Reason Comments New Knee Pain Pain Reason Comments Medicare Wellness Exam Reason Comments Spirometry Specialty Diagnoses / Procedures Referred By Contac t Referred To [facility] Diagnoses Wheezing Asthma-COPD overlap syndrome (HCC) SOB (shortness of breath) on exertion Decreased activity tolerance Productive cough Procedures LUNG VOLUMES Judith Garcia, NEHA.APPLICATIONS SPECIALIST [address] [place] [address] [facility] [address] [place] [address] Referral ID Status Reason Start Date Expiration Date V isits Requested Visits Authorized [id number] Closed Auto-Generate d Referral 11/29/2023 12/28/2024 1 1 Specialty Diagnoses / Procedures Referred By Contac t Referred To Contact [facility] Diagnoses Wheezing Asthma-COPD overlap syndrome (HCC) SOB (shortness of breath) on exertion Decreased activity tolerance Productive cough Procedures SPIROMETRY - BASELINE AND POST DILATOR BRNCDILAT RSPSE SPMTRY PRE&POST-BRNCDILAT ADMN Judith Garcia, FOUNTAIN JERK.APPLICATIONS SPECIALIST [address] [place] [address] [facility] [address] [place] [address] Referral ID Status Reason Start Date Expiration Date V isits Requested Visits Authorized [id number] Closed Auto-Generate d Referral 11/29/2023 12/28/2024 [address] Specialty Diagnoses / Procedures Referred By Contac t Referred To Contact CT IMAGING Diagnoses Wheezing Asthma-COPD overlap syndrome (HCC) SOB (shortness of breath) on exertion Decreased activity tolerance Productive cough Procedures CT CHEST WO IVCON DIAGNOSTIC COMPUTED TOMOGRAPHY THORAX W/O CNTRST Judith Garcia, FOUNTAIN JERK.APPLICATIONS SPECIALIST [address] [place] [address] [place] [address] Referral ID Status Reason Start Date Expiration Date V isits Requested Visits Authorized [id number] Closed Auto-Generate d Referral 11/29/2023 12/28/2024 1 1 Reason Comments Radiology [place] Specialty Diagnoses / Procedures Referred By Contac t Referred To Contact [facility] Diagnoses Shortness of breath Procedures NM CARDIAC PERF STRESS/EXERCISE MYOCARDIAL SPECT MULTIPLE STUDIES Analisa Nicole MD [address] [facility], [address] [place] [address] Molecular & Functional Imaging [address] [id number] Referral ID Status Reason Start Date Expiration Date V isits Requested Visits Authorized [id number] Closed Auto-Generate d Referral 09/26/2023 10/11/2024 1 1 Reason Comments Results Appointment Reason Comments Cardiac Clearance Reason Comments needs referral for pt and ot and uology referral Reason Comments Fax over last OV Note Reason Comments Home Health Nursing-Plan of Care And phy sical therapy plan of care Hypertension Reason Comments Follow Up Kobi leg swelling and elevated BP Reason Onset Date Comments Refill Request 05/30/2024 Reason Comments Med Change Request Reason Comments FILM REQ-HARPSTER Reason Comments BP Check Reason Comments Follow Up one year follow up Reason Comments F/U 3 Month Reason Comments New Patient Referred by Dr Nancy neff Specialty Diagnoses / Procedures Referred By Contac t Referred To Contact Neurology Diagnoses Hospital discharge follow-up Confusion Cerebrovascular accident (CVA), unspecified mechanism (HCC) Procedures CONSULT TO NEUROLOGY OFFICE/OUTPATIENT NEW HIGH MDM 60 MINUTES Radha Berman, FOUNTAIN JERK.APPLICATIONS SPECIALIST [address] [place] [address] Phone: tel: fax: Referral ID Status Reason Start Date Expiration Date V isits Requested Visits Authorized [id number] Closed PCP Requested Referral 05/16/2024 05/16/2025 1 1 Reason Comments er follow up. , stitch removal by rt eye and rt hand Reason Comments Suture Removal Reason Comments Patent Update: Elevated BP Goals (unrecognized section and content) Goals may be documented in a n alternate sectionGoals may be documented in an alternate section FOR RECORDS PERTAINING TO PATIENTS WHO ARE OR HAVE BEEN ENROLLED IN A CHEMICAL DEPENDENCY/SUBSTANCEABUSE PROGRAM, SOME INFORMATION MAY BE OMITTED. This clinical summary was aggregated from multiple sources. Caution should be exercised in using it in the provision of clinical care. This summary normalizes information from multiple sources, and as a consequence, information in this document may materially change the coding, format and clinical context of patient data. In addition, data may be omitted in some cases. CLINICAL DECISIONS SHOULD BE BASED ON THE PRIMARY CLINICAL RECORDS. [employer] provides no warranty or guarantee of the accuracy or completeness of information in this document.
[2024-10-14 08:15] VITALS: BP 156/91; PULSE 74; RESP 19; O2SAT 97
[2024-10-14 08:45] VITALS: BP 133/87; PULSE 71; RESP 17; TEMP 36.4; O2SAT 97
== END 2024-10-14 08:46 | disposition home or self-care (01) ==
PROVIDERS: Emergency Provider Emergency Medicine; PCP Student in an Organized Health Care Education/Training Program; Visit Provider Emergency Medicine
DX: I10 Essential (primary) hypertension (principal); I48.20 Chronic atrial fibrillation, unspecified; Z87.891 Personal history of nicotine dependence; K21.9 Gastro-esophageal reflux disease without esophagitis
CPT/HCPCS: 93005; 99283

== ENCOUNTER 2024-10-26 16:39 | Inpatient (IN) | payer MEDICARE, SELFPAY ==
[2024-10-26] VITALS (7 sets, daily range): BP systolic 104–196; BP diastolic 58–130; PULSE 71–146; RESP 17–26; TEMP 36.6–37.3; O2SAT 93–96; BMI 26.9
--- NOTE | 2024-10-26 18:37 | US_ITS ---
PROCEDURE: GALLBLADDER 10/26/2024 REASON FOR EXAM: PAIN TECHNIQUE: Procedure Code: USGB Modality: US Procedure: GALLBLADDER. Real-time ultrasound of the right upper quadrant with image documentation COMPARISON: None. FINDINGS: LIMITATIONS: Study limited due to obesity, gas and patient condition. Per the technologist notes patient states unable and unwilling to turn LLD due to pain/discomfort. Patient was educated that LLD is necessary to evaluate gallbladder. Patient maintained refusal. LIVER ECHOGENICITY: Coarsened liver echotexture. SIZE: Normal measuring 16.7 cm in length. CONTOUR: Mildly nodular. MASS: None. PORTAL VEIN: Normal direction hepatopetal portal venous flow. GALLBLADDER SIZE: Distended. STONES: Multiple gallstones. SLUDGE: Present. WALL THICKNESS: Thickened measuring 12.8 mm. PERICHOLECYSTIC FLUID: Present. SONOGRAPHIC TROTTER'S SIGN: Negative. BILE DUCTS: Normal with the CBD measuring 3.6 mm in diameter. PANCREAS: The pancreas is not visualized due to overlying bowel gas. RIGHT KIDNEY: Normal size and echogenicity with a length of 10.6 cm. No hydronephrosis, nephrolithiasis, cyst or mass seen. ASCITES/EFFUSIONS: Minimal perihepatic ascites. OTHER: None. US/Gallbladder IMPRESSION: 1. Distended gallbladder with gallstones, sludge, wall thickening and perichol ecystic edema. Correlate clinically for signs of acute cholecystitis. 2. Mildly nodular liver contour with coarsened echotexture. This could repres ent early signs of hepatic cirrhosis. 3. Minimal ascites. Reading Location: [id number]
--- NOTE | 2024-10-26 18:37 | EKG12_ITS ---
Test Reason : NAUSEA Blood Pressure : */* mmHG Vent. Rate : 127 BPM Atrial Rate : * BPM P-R Int : * ms QRS Dur : 142 ms QT Int : 344 ms P-R-T Axes : * 96 -25 degrees QTcB Int : 499 ms Atrial fibrillation with rapid ventricular response Right bundle branch block T wave abnormality, consider inferior ischemia Abnormal ECG Confirmed by MICHEL GALDAMEZ, SUNIL ([id number]), newspaper managing editor MIGUEL STRAUSS ([id number]) on 10/29/2024 9:12:01 AM Referred By: ERIC Confirmed By: SUNIL PEARSON MD
--- NOTE | 2024-10-26 18:37 | CT_ITS ---
PROCEDURE: CHEST WITHOUT CONTRAST 10/26/2024 REASON FOR EXAM: RIB PAIN. Fell a couple of weeks ago. Nausea and abdominal pain. TECHNIQUE: Chest CT without contrast. Coronal and Sagittal reconstruction series were provided. One or more dose reduction techniques were used (e.g., Automated exposure control, adjustment of the mA and/or kV according to patient size, use of iterative reconstruction technique RADIATION DOSE SUMMARY: CTDlvol: 16.22, 20.02 mGy DLP: 807 mGycm COMPARISON: None. FINDINGS: LUNGS: Respiratory motion is present. Right middle lobe nodular opacity measuring 1.9 x 2.5 cm. Interlobular septal and peribronchovascular interstitial thickening bilaterally. Dependent opacities noted bilaterally. PLEURAL SPACES: No pleural effusion. No pneumothorax. HEART: Moderate cardiomegaly. No significant pericardial effusion. Coronary artery calcification. MEDIASTINUM/HILUM: Multiple enlarged mediastinal lymph nodes. The largest is subcarinal measuring 1.7 x 2.3 cm. AORTA: No aneurysm. Mild scattered calcified atherosclerosis. PULMONARY VESSELS: The pulmonary veins are mildly enlarged. ESOPHAGUS: Unremarkable. CHEST WALL: The chest wall is unremarkable. THYROID: Low attenuating nodule in the left thyroid lobe measuring 1.0 x 1.5 x 1.7 cm. BONES: Respiratory motion limits evaluation of the ribs. Nonacute right anterolateral 6th to 9th rib fractures with callus formation. Old left lateral 10th rib fracture. Suture anchors in the right humeral head. Degenerative changes of the spine and both glenohumeral joints. UPPER ABDOMEN: Small hiatal hernia. Distended gallbladder with gallstones and pericholecystic stranding. 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 Minimal perihepatic ascites. Exophytic 2.9 cm fluid density left renal cyst. CT/Chest without Contrast IMPRESSION: 1. Healing right anterolateral 6th to 9th rib fractures. No pneumothorax. 2. Right middle lobe nodular opacity, possibly infectious in etiology versus n eoplasm. 3. Mediastinal lymphadenopathy. 4. Cardiomegaly with mild vascular congestion and interstitial edema. 5. Dependent lung opacities bilaterally, likely atelectasis with infection not excluded. 6. Cholelithiasis with concern for acute cholecystitis. Clinical correlation is recommended. 7. Coronary artery calcification (CAC) is present. 8. Left thyroid nodule up to 1.7 cm. Thyroid ultrasound follow up is recommen ded. 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 Reading Location: [id number]
--- NOTE | 2024-10-26 18:37 | EX.ED.DYSGE1 ---
HPI History of Present Illness Chief Complaint: Nausea/Vomiting Narrative Narrative: 89-year-old male presents with right upper quadrant pain, nausea that has had since noon today after eating clam chowder from [employer]. This has been ongoing for the last 6-1/2 hours. He states that he did not vomit but he tried to force himself to vomit because of his nausea and pain in the right upper quadrant of his abdomen. Only a small amount of bilious material came out. He denies any exacerbating or alleviating factors other than it starting after he ate. He had a normal bowel movement this morning. Denies any fevers but states he feels chilled currently. No prior abdominal surgeries. His is concerned because he had a fall last week and he is on blood thinners for atrial fibrillation. He was bruised all on his right side. The fact that he is having right upper quadrant abdominal pain, she is concerned that he may have broken a rib from the fall. [facility] Medical History Type 2 diabetes mellitus Hyperlipidemia HTN (hypertension) Pulmonary hypertension Diverticulosis Insomnia Atrial fibrillation with RVR Histoplasmosis GERD (gastroesophageal reflux disease) History of skin cancer Solar keratosis Ulcer of right leg Burn scar Home Medications ?Medication ?Instructions ?Recorded ?Last Taken ?Type omeprazole 40 mg capsule,delayed 20 mg PO DAILY reflux 07/22/15 09/05/19 06:00 History release albuterol sulfate 90 mcg/actuation 1 puff PO Q6H shortness of breath 09/05/19 09/05/19 12:00 History breath activated powder inhaler multivitamin 1 tab PO QWEEK 09/25/19 Unknown History apixaban 5 mg tablet 5 mg PO BID #180 tabs 09/26/19 Unknown Rx cholecalciferol (vitamin D3) 50 50 mcg PO DAILY 09/26/19 Unknown History mcg (2,000 unit) tablet metoprolol tartrate 50 mg tablet 50 mg PO BID #180 tabs 09/26/19 Unknown Rx tadalafil 5 mg tablet 5 mg PO DAILY 09/26/19 Unknown History Lactobacillus acidophilus 10 10,000 mmu cells PO DAILY 09/30/23 09/30/23 History billion cell capsule (Probiotic) supplement apixaban 5 mg tablet (Eliquis) 5 mg PO BID blood thinner 09/30/23 09/30/23 History calcium 600 mg (as 1 tab PO DAILY supplement 09/30/23 09/30/23 History carbonate)-vitamin D3 10 mcg (400 unit) tablet fluticasone fur. 200 mcg-umeclid 1 ea inhalation DAILY breathing 09/30/23 09/30/23 History 62.5 mcg-vilant 25 mcg inhalat.powder (Trelegy Ellipta) metoprolol tartrate 50 mg tablet 50 mg PO BID heart 09/30/23 09/30/23 History multivitamin (Daily Multi-Vitamin 1 tab PO DAILY supplement 09/30/23 09/30/23 History tablet) omeprazole 20 mg capsule,delayed 20 mg PO DAILY acid reflux 09/30/23 09/30/23 History release furosemide 20 mg tablet 20 mg PO DAILY PRN swelling 10/26/24 Unknown History hydralazine 25 mg tablet mg PO 10/26/24 Unknown History ipratropium 0.5 mg-albuterol 3 mg 3 ml inhalation TID 10/26/24 Unknown History (2.5 mg base)/3 mL nebulization soln losartan 100 mg tablet 100 mg PO DAILY 10/26/24 Unknown History magnesium 200 mg tablet 200 mg PO DAILY 10/26/24 Unknown History metformin 500 mg tablet 500 mg PO BID 10/26/24 Unknown History rosuvastatin 20 mg tablet 20 mg PO DAILY 10/26/24 Unknown History Allergy/AdvReac Type Severity Reaction Status Date / Time No Known Allergies Allergy Verified 10/26/24 16:44 Family History Mother Breast cancer Father Colon cancer Melanoma Brother COPD (chronic obstructive pulmonary disease) Grandfather Multiple myeloma Surgical History History of left hip replacement History of arthroscopic knee surgery History of skin graft History of transurethral resection of prostate History of right hip replacement History of rotator cuff surgery History of tonsillectomy and adenoidectomy Social History (Updated 10/26/24 @ 22:[address] Fernanda Triplett MD) household members: spouse Smoking Status: Former smoker how long ago did patient quit smokin years ago alcohol intake: current alcohol intake frequency: a few times a week Alcohol type: wine substance use type: does not use caffeine: No ROS ROS ED ROS Narrative Review of systems positive for nausea and right upper quadrant abdominal pain. No fever, but feels chilled currently. No exacerbating or alleviating factors with the exception of it starting after eating clam chowder. No prior abdominal surgeries. Normal bowel movement today, this morning. No hematemesis. EXAM Physical Exam Narrative Exam Narrative: Afebrile. Vital signs noted. Nontoxic-appearing. Ambulatory in ED to room. Cardiovascular examination reveals an irregular rhythm that is rate controlled at 71 bpm. Lungs are clear to auscultation bilaterally. The abdomen is soft with tenderness to palpation in the right upper quadrant with questionable Diaz sign. Positive bowel sounds. Neurological examination nonfocal, nonlateralizing. Const Vital Signs: 10/26/24 16:40 10/26/24 19:23 10/26/24 20:08 Temperature 97.9 F 98.9 F Temperature Source Temporal Oral Pulse Rate 71 146 H 123 H Respiratory Rate 17 20 H 24 H Blood Pressure 172/114 H 196/130 H 136/98 H Blood Pressure Mean 133 152 110 Pulse Ox 96 94 95 Oxygen Delivery Method Room Air Room Air Nasal Cannula Oxygen Flow Rate (L/min) 2 10/26/24 21:23 Temperature 98.7 F Temperature Source Oral Pulse Rate 109 H Respiratory Rate 26 H Blood Pressure 104/58 L Blood Pressure Mean 73 Pulse Ox 93 Oxygen Delivery Method Nasal Cannula Oxygen Flow Rate (L/min) 2 Sepsis Attestation Sepsis Alert: Yes Sepsis Attestation: Agree w/Sepsis Date exam was performed: 10/26/24 Time exam was performed: 21:45 Possible Source of Sepsis: GI tract/intra-abdominal Sepsis Organ Dysfunction Criteria Present: SBP decrease of more than 40 mmHg and Lactic Acid > 2 mmol/L Supportive Findings: Leukocytosis, tachycardia/A-fib with RVR significant drop in systolic blood pressure. Lactic acidosis. Fluid Resuscitation Fluid resuscitation indicated?: Yes Fluid Resuscitation ordered: Lesser volume fluid bolus ordered Amount of fluid ordered: 1,000 Reason for lesser fluid bolus:: Concern for fluid overload MDM MDM MDM Narrative Medical decision making narrative: Differential diagnosis includes but not limited to acute cholecystitis versus gallstone pancreatitis versus gastritis/food poisoning versus bowel obstruction. He does not have a reason to be obstructed. Hypertensive workup was pursued. His was concerned about his blood pressure medication and not being able to take it with elevated blood pressure. He will be monitored. Additionally with her concern for rib fracture from previous fall, CT of the chest will be obtained. I do feel that he requires laboratory work as well as imaging of the gallbladder. He will be given morphine and ondansetron as well. I reviewed his laboratory work and he has a leukocytosis of 15.8 with hemoglobin 15.2, hematocrit 45.8, platelet count normal at 285. CMP shows BUN of 20 with creatinine 1.27, glucose elevated at 144 with a normal anion gap of 15. AST and ALT are normal as well as alk phos and total bilirubin. Lipase normal at 15 so I doubt pancreatitis. Given that he had fallen last week with her concern for rib fractures, I obtained a CT of the chest. There are anterior lateral rib fractures of [address] scan but no pneumothorax. He also has a right middle lobe opacity which may be infectious versus neoplasm. They did comment on concern for acute cholecystitis on the CT scan. I obtained an ultrasound of the gallbladder as well which is consistent with acute cholecystitis and pericholecystic edema. He has gallstones and sludge. Clinically correlating, I do feel he has acute cholecystitis. Started on Zosyn. He did have a drop in his blood pressure but this was secondary to metoprolol and labetalol for his atrial fibrillation with RVR. I had obtained an EKG and interpreted it independently as A-fib with RVR to [address] changes. No STEMI. Patient was bolused IV fluids. I did obtain a lactic acid as well because he kept complaining of chills. While his repeat temperature did not show him to be febrile, his lactic acid was elevated at 3.2. I discussed patient with Dr. Cavazos with general surgery. As he is on Eliquis, he states he would not take him to surgery until at least Tuesday more than likely and requested that he be admitted to the medicine service. I will discuss patient with Dr. Triplett for admission. Patient discussed with Dr. Triplett. It was felt that given the constellation of symptoms that the patient is septic. I feel it is from an intra-abdominal process mainly is acute cholecystitis. He was bolused 1 L of normal saline with concern for fluid overload. History & Record Review Discussion w/independent historian: Patient and Family Additional record(s) reviewed:: Prior ED visit Lab Data Attestation: I reviewed the patient's lab results. Labs: Laboratory Results - last 24 hr 10/26/24 10/26/24 18:04 21:44 WBC 15.8 H RBC 5.16 Hgb 15.2 Hct 45.8 MCV 88.8 MCH 29.5 MCHC 33.2 RDW Std Deviation 49.2 H RDW Coeff of Pollo 15.2 H Plt Count 285 MPV 10.5 Immature Gran % (Auto) 1.400 H Neut % (Auto) 81.0 H Lymph % (Auto) 10.5 L Adams % (Auto) 6.0 Eos % (Auto) 0.4 Baso % (Auto) 0.7 Absolute Neuts (auto) 12.8 H Absolute Lymphs (auto) 1.66 Nucleated RBC % 0 Sodium 140 Potassium 4.1 Chloride 102 Carbon Dioxide 23.2 Anion Gap 15 BUN 20 H Creatinine 1.27 H Estim Creat Clear Calc 44.13 L Est GFR (MDRD) Non-Af 54 L BUN/Creatinine Ratio 15.6 Glucose 144 H Lactic Acid 3.2 H* Calcium 10.7 Total Bilirubin 1.11 AST 34 ALT 18 Alkaline Phosphatase 120 Total Protein 8.1 Albumin 4.5 Globulin 3.6 Albumin/Globulin Ratio 1.3 Lipase 15 Radiography Diagnostic Testing: Clinical Impression(s) from Imaging Studies Chest CT 10/26/24 18:37 IMPRESSION: 1. Healing right anterolateral 6th to 9th rib fractures. No pneumothorax. 2. Right middle lobe nodular opacity, possibly infectious in etiology versus neoplasm. 3. Mediastinal lymphadenopathy. 4. Cardiomegaly with mild vascular congestion and interstitial edema. 5. Dependent lung opacities bilaterally, likely atelectasis with infection not excluded. 6. Cholelithiasis with concern for acute cholecystitis. Clinical correlation is recommended. 7. Coronary artery calcification (CAC) is present. 8. Left thyroid nodule up to 1.7 cm. Thyroid ultrasound follow up is recommended. 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 Reading Location: [facility] Gallbladder Ultrasound 10/26/24 18:37 IMPRESSION: 1. Distended gallbladder with gallstones, sludge, wall thickening and pericholecystic edema. Correlate clinically for signs of acute cholecystitis. 2. Mildly nodular liver contour with coarsened echotexture. This could represent early signs of hepatic cirrhosis. 3. Minimal ascites. Reading Location: [id number] Management Discussion w/another healthcare provider: Hospitalist (Dr. Ree Triplett) and Supervisor Shuttle Preparation (Dr. Cavazos general surgery) Critical Care Time Critical Care Time: Yes Critical care time (excluding procedures): 30-74 minutes (31), Including time spent:, Discussing w/Patient &/or Family/Tray Line Supervisor, Discussing w/Consultants, Arranging Admission or Transfer and Performing Direct Patient Care at Bedside Discharge Plan Dx/Rx/DC Orders Clinical Impression: Acute cholecystitis, Atrial fibrillation with RVR, Essential hypertension, Lactic acidosis, Sepsis Disposition Disposition: Acute Care Hospital [facility]
--- NOTE | 2024-10-26 18:39 | ED.RN ---
Patient provided with warm blanket after patient's yelled from room doorway to the nurses station for an additional blanket.
[2024-10-26 18:49] LABS: Hematocrit 45.8 % (40-54); Hemoglobin 15.2 g/dL (13.0-16.5); Immature Granulocytes Count 0.220 X10^3/uL (0.0-0.0); Mean Corp Hgb Conc 33.2 g/dL (32-36); Mean Corpuscular Volume 88.8 fL (80-94); Mean Platelet Vol. 10.5 fl (6.2-12.0); NRBC Flagged by Analyzer 0 % (0-5); Platelet Count 285 K/mm3 (150-450); RBC Distribution Width CV 15.2 % (11.6-14.6); RBC Distribution Width SD 49.2 fl (35.1-43.9); Red Blood Count 5.16 M/mm3 (4.6-6.2); White Blood Count 15.8 K/mm3 (4.4-11.0)
[2024-10-26 19:30] LABS: AST(SGOT) 34 U/L (<=37); Alanine Aminotransfer ALT/SGPT 18 U/L (<=46); Albumin, Serum 4.5 g/dL (3.4-4.8); Alkaline Phosphatase 120 U/L (40-129); Anion Gap 15 (5-15); BUN 20 mg/dL (4-19); BUN/Creat Ratio 15.6 RATIO (10-20); Calcium,Total 10.7 mg/dL (7.6-11.0); Carbon Dioxide 23.2 mmol/L (21.0-32.0); Chloride 102 mmol/L (98-108); Estimated Creatinine Clearance 44.13 ml/min (50-250); Globulin 3.6 g/dL (2.2-4.2); Glucose 144 mg/dL (70-99); Lipase 15 U/L (13-75); Potassium 4.1 mmol/L (3.3-5.1)
[2024-10-26] MEDS: Piperacil/Tazobactam 3.375 GM in 0.9% Normal Saline (50mL MB+) 50 ML IV (22:10)
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
[2024-10-26] MEDS: 0.9% Normal Saline (1000mL) 1,000 ML 999 ML IV (23:07)
--- OUTSIDE RECORDS SUMMARY | 2024-10-26 23:38 | XMS RPT_ITS | CCD ---
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 Performed By: #### 2 4321-2, 03651-7 ####[facility] LABCLIA [id number] [facility] [address], [facility] [place] CO2 [Moles/Vol] 26 mmol/L Normal 22-[address] [facility] Comment on above: Order Comment: Speci men Type: BLOOD SPECIMENOrdering Facility: [facility] Address: [address] [place] [address] Performed By: #### 2 4321-2, 86448-0 ####[facility] LABCLIA [id number] [facility] [address] [place] [address] [place] Creatinine [Mass/Vol] 1.30 mg/dL High 0.73-1.[address] [facility] Comment on above: Order Comment: Speci men Type: BLOOD SPECIMENOrdering Facility: [facility] Address: [address] [place] [address] Performed By: #### 2 4321-2, 34978-9 ####[facility] LABIA [id number] [place] [address] [place] Creatinine and Glomerular filtration rate.predicted panel (S/P/Bld) 53 mL/min/1.73m??? Low >=[address] [facility] Comment on above: Order Comment: Jayson moffett Type: BLOOD SPECIMENOrdering Facility: [facility] Address: [address] [place] [address] Result Comment: Yani mated Glomerular Filtration Rate [...] actual GFR. Performed By: #### 2 4321-2, 83165-1 ####[facility] LABIA [id number] [place] [address] [place] Glucose [Mass/Vol] 130 mg/dL High 74-99 [facility] Comment on above: Order Comment: Jayson moffett Type: BLOOD SPECIMENOrdering Facility: [facility] Address: [address] [place] [address] Result Comment: The [place] Diabetes Association (ADA) provides guidance for cutoff [...] Standards of Medical Care in Diabetes 2016, [place] Diabetes Association. Diabetes Care. 2016.39(Suppl 1). Performed By: #### 2 4321-2, 54906-7 ####[facility] LABCLIA [id number] [address] [address] [place] Potassium [Moles/Vol] 4.6 mmol/L Normal 3.7-5.[address] [facility] Comment on above: Order Comment: Speci men Type: BLOOD SPECIMENOrdering Facility: [facility] Address: [address] [place] [address] Performed By: #### 2 4321-2, 69190-8 ####[facility] LABIA [id number] [place] [id number] [place] Sodium [Moles/Vol] 140 mmol/L Normal 136-144 [facility] Comment on above: Order Comment: Speci men Type: BLOOD SPECIMENOrdering Facility: [facility] Address: [address] [place] [address] Performed By: #### 2 4321-2, 64288-6 ####[facility] LABIA [id number] [place] [address] [place] Urea nitrogen [Mass/Vol] 20 mg/dL Normal 9-[address] [facility] Comment on above: Order Comment: Speci men Type: BLOOD SPECIMENOrdering Facility: [facility] Address: [address] [place] [address] Performed By: #### 2 4321-2, 67291-7 ####[facility] LABIA [id number] [address] [address] [place] HbA1c (Bld)on 08-22-2024 Average glucose Estimated from glycated hemoglobin (Bld) [Mass/Vol] 131 mg/dL Normal [facility] Comment on above: Order Comment: Speci men Type: BLOOD SPECIMENOrdering Facility: [facility] Address: [address] [place] [address] Result Comment: eAG: (Estimated average glucose) is a calculated value from HgbA1c and is financial sales representative of the average blood glucose level in the last 2-3 month period. Performed By: #### 5 5454-3 ####[facility] LABIA [id number] [place] [address] [place] HbA1c (Bld) [Mass fraction] 6.2 % High 4.3-5.[address] [facility] Comment on above: Order Comment: Jayson moffett Type: BLOOD SPECIMENOrdering Facility: [facility] Address: [address] [place] [address] Result Comment: Amer [place] Diabetes Association guidelines indicate that patients with HgbA1c in the range 5.7-6.4% are at increased risk for development of diabetes, and intervention by lifestyle modification may be beneficial. HgbA1c greater or equal to 6.5% is considered diagnostic of diabetes. Performed By: #### 5 5454-3 ####[facility] [id number] [address] [place] NT-proBNP [facility] 08-22 Natriuretic peptide.B prohormone N-Terminal [Mass/Vol] 2460 pg/mL High <[address] [facility] Comment on above: Order Comment: Jayson moffett Type: BLOOD SPECIMENOrdering Facility: [facility] Address: [address] [place] [address] Performed By: #### 2 4321-2, 39737-9 ####[facility] [id number] [address] [place] CNOVon 07-12-2024 CNOV Office Visit (FAMPWS ) JUAN JOSE FOSTER ([id number]) 1935 M Date Time Provider Department 07/12/24 3:20 PM SHAYLA HINES During your visit today, we recorded the [...] -ProBNP in April 3,593 (4 years ago [phone]) -Albumin 3.8 last -Lipid panel unremarkable, on [...] to his next visit with Shayla Cardozo APRN.ESTIVEN 07/12/2024 4:07 PM Edited Orders: HEMOGLOBIN A1C; Future BASIC METABOLIC PANEL; Future - continue metformin as ordered Shayla Hines APRN.ESTIVEN 07/12/2024 4:07 PM Written Orders: NT PRO BNP; Future - offered and encourag (more content not included)... Normal [facility] CNOVon 07-02-2024 CNOV Office Visit (CARDWS ) JUAN JOSE FOSTER ([id number]) 1935 M Date Time Provider Department 07/02/24 3:40 PM ANALISA NICOLE During your visit today, we recorded the following information about you: Pulse Respiration Blood pressure Weight 90/minute 12/minute 128/70 92.4 kg Height 1.803 m Analisa Nicole MD 07/02/2024 4:22 PM Signed Analisa Nicole MD Interventional Cardiology [address] [place] [phone] Chief Complaint Patient presents with: Follow Up: [...] GERD (gastroesophageal reflux disease) Melanoma (HCC) 1991 [place] [employer] Persistent atrial fibrillation (HCC) 10/11/2019 Admitted 09/05/[facility]. Followed by [facility]. PAST SURGICAL HISTORY Procedure Laterality [...] 2012 L Rotator cuff repair - bilateral [facility] PAST SURGICAL HISTORY OF plastic surgery [...] weekly Drug use: No ALLERGIES Allergen Reactions [place] Other: See Comments sneezing,runny nose [place] Cough also cy[place] with same reaction Mold [...] (more content not included)... Normal [facility] CNOVon 06-28-2024 CNOV Office Visit (RALEIGHWS ) JUAN JOSE FOSTER ([id number]) 1935 M Date Time Provider Department 06/28/24 1:20 PM JUDITH GARCIA During your visit today, we recorded the following information about you: Pulse Blood pressure Weight 76/minute 144/88 93.8 kg Judith Garcia APRN.CNP 06/28/2024 2:08 PM Addendum Increase the losartan to 100mg daily. I sent this prescription to [facility] in [place]. Continue checking blood pressures as you have been. Continue the hydralazine as needed for the top number greater than 165. Record this on the record you're keeping, no need to call us for this unless it doesn't improve. Continue the metoprolol 50mg twice daily. Increase the metformin for his diabetes to twice daily. Once with breakfast and once with supper. Judith Garcia APRN.ESTIVEN 06/28/2024 2:56 PM Signed 06/28/2024 Recording using [employer] software for draft documentation of the visit was discussed with the patient/authorized financial sales representative; all questions welcomed and answered. Patient/authorized financial sales representative agreed to proceed HPI: Juan [...] GERD (gastroesophageal reflux disease) Melanoma (HCC) 1991 [place] [employer] Persistent atrial fibrillation (HCC) 10/11/2019 Admitted 09/05/2019 [facility]. Followed by [facility]. Current Outpatient Medications on File [...] to 100 mg daily; prescription sent to [facility] in [place] with a 30-day supply and refills. - [...] reviewed as needed. Follow up: Judith Garcia APRN.PRIMER CHARGING TOOL SETTER Allergies As of Date: 06/28/2024 Noted Allergy Reaction CYPRESS 09/22/2010 14 - Other: See Comments Co (more content not included)... Normal [facility] CNOVon 06-14-2024 CNOV Office Visit (PULMWS ) JUAN JOSE FOSTER ([id number]) 1935 M Date Time Provider Department 06/14/24 1:30 PM OMAR TREADWELL PULMWS During your visit today, we recorded the following information about you: Weight 91.2 kg Omar Treadwell, NEHA.PRIMER CHARGING TOOL SETTER 06/14/2024 4:29 PM Signed [facility] INCIDENTAL LUNG NODULE PROGRAM Impression / Recommendations 1. Lung nodule (Primary) Nature and etiology of lung nodules discussed with patient. He was referred for new RUL 14 x 12 mm nodule from 12/05/2023 CT Chest done for cough and SOB. He wintered in [place] and went to the ER for pneumonia [...] No) Subsequent imaging 04/13/2024 CTA Chest in [place] showed resolution of the nodule of concern [...] 92.1 kg (203 lb) Modified Medical Research [place] Dyspnea Scale (MMRC) I get short of [...] (more content not included)... Normal [facility] CNOVon 06-13-2024 CNOV Office Visit (FAMPWS ) JUAN JOES FOSTER ([id number]) 1935 M Date Time Provider Department 06/13/24 3:40 PM JUDITH GARCIAWS During your visit today, we recorded the following information about you: Pulse Blood pressure Weight 87/minute 136/84 91.2 kg Judith Garcia APRN.PRIMER CHARGING TOOL SETTER 06/14/2024 11:54 AM Signed Chief Complaint Patient [...] GERD (gastroesophageal reflux disease) Melanoma (HCC) 1991 [place] [employer] Persistent atrial fibrillation (HCC) 10/11/2019 Admitted 09/05/2019 [facility]. Followed by [facility]. Previous Surgical History PAST SURGICAL HISTORY Procedure Laterality Date ARTHRP ACETBLR/PROX FEM PROSTC AGRFT/ALGRFT Bilateral 2012 CHEMOSURG MOHS 1ST STAGE Right 06/09/2017 [facility]'s surgery - right lower leg COLONOSCOPY 06/07/2016 [...] 2011 L Rotator cuff repair - bilateral [facility] PAST SURGICAL HISTORY OF plastic surgery [...] Family History Patient Allergies ALLERGIES Allergen Reactions [place] Other: See Comments sneezing,runny nose [place] Cough also [place] with same reaction Mold [...] 2 DM - Controlled E11.9 Insulin: Yes hy (more content not included)... [facility] (PMNA11) FOSTERJUAN JOSE MENDIETA ([id number]) 1935 M Date Time Provider Department 06/08/24 CITLALLI BHATTI PMNA11 During your visit today, we recorded the following information about you: Citlalli Bhatti RN 06/08/2024 3:49 PM Addendum 06/08/24 Omar Treadwell requests images from [place]: CTA Chest 04/13/2024 [facility] [address] [place] [address] Keisha pushing now via [employer]. Film arrived. Notified Omar. Citlalli Bhatti RN [facility] Allergies As of Date: 06/08/2024 Noted Allergy Reaction CYPRESS 09/22/2010 14 - Other: See Comments Comments: sneezing,runny nose CEDAR 08/17/2010 3 - Cough Comments: also [place] with same reaction MOLD 08/17/2010 3 - Cough PREDNISONE 05/16/2024 1 - Mental Status Change Comments: Hallucinations Date Reviewed: 05/30/2024 Reviewed by: Judith Garcia APRN.PRIMER CHARGING TOOL SETTER - Fully Assessed Reason for Visit: FILM FABIANO-CHRISTIANO [Other] Prescriptions as of 06/08/2024 - apixaban [...] by CITLALLI BHATTI on 06/08/24 [facility] Catie 06-07-2024 CNPN Telephone (FAMPWS) JUAN JOSE FOSTER ([id number]) 1935 Date Time Provider Department 06/07/24 DIPAK AGUILAR FAMPWS During your visit today, we recorded the following information about you: Tali Hogan RN 06/07/2024 9:11 AM Signed Maximo with [facility] calls to let provider know that patient [...] longer weighing himself daily. LUPE Goldstein Rebekah, APRN.ESTIVEN 06/08/2024 10:24 AM Signed Noted, thank you. Judith Garcia APRN.ESTIVEN Allergies As of Date: 06/07/2024 Noted Allergy Reaction CYPRESS 09/22/2010 14 - Other: See Comments Comments: sneezing,runny nose CEDAR 08/17/2010 3 - Cough Comments: also [place] with same reaction MOLD 08/17/2010 3 - Cough PREDNISONE 05/16/2024 1 - Mental Status Change Comments: Hallucinations Date Reviewed: 05/30/2024 Reviewed by: Judith Garcia APRN.ESTIVEN - Fully Assessed Reason for Visit: Patient [...] by TALI HOGAN on 06/11/24 [facility] Shasha 05-30-2024 CNOV Office Visit (RALEIGHPWS ) JUAN JOSE FOSTER ([id number]) 1935 M Date Time Provider Department 05/30/24 2:20 PM JUDITH GARCIA During your visit today, we recorded the following information about you: Pulse Blood pressure Weight 78/minute 110/78 92.1 kg Judith Garcia APRN.CNP 05/30/2024 6:37 PM Signed Chief Complaint Patient [...] GERD (gastroesophageal reflux disease) Melanoma (HCC) 1991 [place] [employer] Persistent atrial fibrillation (HCC) 10/11/2019 Admitted 09/05/2019 [facility]. Followed by [facility]. Previous Surgical History PAST SURGICAL [...] 2012 L Rotator cuff repair - bilateral [facility] PAST SURGICAL HISTORY OF plastic surgery [...] Family History Patient Allergies ALLERGIES Allergen Reactions [place] Other: See Comments sneezing,runny nose [place] Cough also [place] with same reaction Mold [...] since quitting: (more content not included)... [facility] Tele[facility] (FAMPWS) JUAN JOSE FOSTER ([id number]) 1935 M Date Time Provider Department 05/24/24 [facility] your visit today, we recorded the [...] from his time acute rehab facility in [place] for hydralazine 25 mg QID as needed for systolic BP >150. states that she dis not give hydralazine today. Please advise if patient needs to keep taking lasix and about hydralazine prescription. Medication is not listed on patient's medications. Please review and advise, LUPE Bahena Jordan L, DO 05/29/2024 4:53 PM Signed Will forward to [facility] to review with /patient at office visit tomorrow Dipak Aguilar DO Allergies As of Date: 05/24/2024 Noted Allergy Reaction CYPRESS 09/22/2010 14 - Other: See Comments Comments: sneezing,runny nose CEDAR 08/17/2010 3 - Cough Comments: also [place] with same reaction MOLD 08/17/2010 3 - Cough PREDNISONE 05/16/2024 1 - Mental Status Change Comments: Hallucinations Date Reviewed: 05/16/2024 Reviewed by: Radha Berman APRN.PRIMER CHARGING TOOL SETTER - Fully Assessed Reason for Visit: Patient [...] Encounter Status:Closed by MARYAN TORRES on 05/29/24 [facility] Catie 05-21-2024 ESTIVENN Telephone (FAMPWS) JUAN JOSE FOSTER ([id number]) 1935 M Date Time Provider Department 05/21/24 DIPAK AGUILAR During your visit today, we recorded the following information about you: Gabrielle Friedman, LUPE 05/21/2024 4:25 PM Signed Moira with [facility] calling with Nursing plan of care. Nursing will see patient 2 times per week for 1 week , then one time per week for 2 weeks for COPD education, edema monitoring and A-Fib management. No call back needed if provider is agreeable to plan. Gabrielle Friedman, Mira Cruz RN 05/22/2024 2:34 PM Signed See below note as well from half-way. Martina physical therapist from [facility] calling today to update PT plan of [...] then as needed. Pt took on the th, and . states the leg swelling is much better. Still some slight swelling but so much better. She states the following BP readings: 150/90 159/103 156/115 th 160/114 st 145/107 Today 163/103 Per Martina, pt has Hydralazine on hand prescribed by hospital in [place] when he was admitted. Pt is to [...] for the update, agree with below. Judith Gacria APRN.Carrie Mariscal MA 05/22/2024 4:33 PM Signed Martina informed Carrie Del Angel MA Allergies As of Date: 05/21/2024 Noted Allergy Reaction CYPRESS 09/22/2010 14 - Other: See Comments Comments: sneezing,runny nose CEDAR 08/17/2010 3 - Cough Comments: also [place] with same reaction MOLD 08/17/2010 3 - Cough PREDNISONE 05/16/2024 1 - Mental Status Change Comments: Hallucinations Date Reviewed: 05/16/2024 Reviewed by: Radha Berman APRN.PRIMER CHARGING TOOL SETTER - Fully Assessed Reason for Visit: Home [...] (more content not included)... Normal [facility] Catie [facility]-17-2024 [facility] JUAN JOSE FOTSER ([id number]) 1935 M Date Time Provider Department 05/17/24 DIPAK AGUILAR FAMPWS During your visit today, we recorded the following information about you: Macy Fraser RN 05/17/2024 3:12 PM Signed Martina [facility] called and asked to have last OV noted faxed over. Faxed to fax # [phone]. Allergies As of Date: 05/17/2024 Noted Allergy Reaction CYPRESS 09/22/2010 14 - Other: See Comments Comments: sneezing,runny nose CEDAR 08/17/2010 3 - Cough Comments: also [place] with same reaction MOLD 08/17/2010 3 - Cough PREDNISONE 05/16/2024 1 - Mental Status Change Comments: Hallucinations Date Reviewed: 05/16/2024 Reviewed by: Radha Berman APRN.PRIMER CHARGING TOOL SETTER - Fully Assessed Reason for Visit: Fax [...] (HCC) [N18.31] 11/16/2021 Encounter Status:Closed by MACY FRASER on 05/17/[address] [facility] US DVT LOWER BILon US DVT [...] of the left and right lower extremities. Snubber: [facility] Transcribe Date/Time: May 17 2024 3:38P Dictated by : HENRY PEÑA MD This examination was interpreted and the report reviewed and electronically signed by: HENRY PEÑA MD on May 17 2024 3:42PM EST [id number] Normal [facility] US Lower extremity vein - bi lateralon 05-17-2024 IMPRESSION: Negative study for proximal DVT in the left and right lower extremities. Negative study for calf DVT in the left and right lower extremities. Negative study for superficial thrombophlebitis in the imaged segments of the left and right lower extremities. Snubber: [facility] Transcribe Date/Time: May 17 2024 3:38P Dictated by : HENRY PEÑA MD This examination was interpreted and the report reviewed and electronically signed by: HENRY PEÑA MD on May 17 2024 3:42PM EST DIVISION OF RADIOLOGY * * *Final Report* [...] not otherwise assessed. DIVISION OF RADIOLOGY Provider, [facility] - 05/17/2024 * * *Final Report* * [...] of the left and right lower extremities. [facility] Transcribe Date/Time: May 17 2024 3:38P Dictated by : HENRY PEÑA MD This examination was interpreted and the report reviewed and electronically signed by: HENRY PEÑA MD on May 17 2024 3:42PM EST [facility] Radiology Study observation (narrative) [facility] US Lower extremity vein - bi lateralOrdered By: Ccf Provider on 05-17-2024 [facility] CBC W Auto Differential pane l (Bld)on 05-16-2024 Basophils (Bld) [#/Vol] 0.1 10*3/uL [facility] Basophils/100 WBC (Bld) 1 % [facility] Differential cell count method Nom (Bld) Auto [facility] Eosinophils (Bld) [#/Vol] 0.35 10*3/uL [facility] Eosinophils/100 WBC (Bld) 3.4 % [facility] Erythrocyte distribution width (RBC) [Ratio] 14.7 % 11.5 - 15.0 % [facility] Hematocrit (Bld) [Volume fraction] 45.5 % 39.0 - 51.0 % [facility] Hemoglobin (Bld) [Mass/Vol] 14.9 g/dL 13.0 - 17.0 g/dL [facility] Immature granulocytes (Bld) [#/Vol] 0.11 10*3/uL High NINF [facility] Immature granulocytes/100 WBC (Bld) 1.1 % [facility] Interpretation and review of laboratory results Abnormal [facility] Lymphocytes (Bld) [#/Vol] 2.01 10*3/uL [facility] Lymphocytes/100 WBC (Bld) 19.5 % [facility] MCH (RBC) [Entitic mass] 30 pg 26.0 - 34.0 pg [facility] MCHC (RBC) [Mass/Vol] 32.7 g/dL 30.5 - 36.0 g/dL [facility] MCV (RBC) [Entitic vol] 91.7 fL 80.0 - 100.0 fL [facility] Monocytes (Bld) [#/Vol] 1.29 10*3/uL High [facility] Monocytes/100 WBC (Bld) 12.5 % [facility] Neutrophils (Bld) [#/Vol] 6.47 10*3/uL [facility] Neutrophils/100 WBC (Bld) 62.5 % [facility] Nucleated RBC (Bld) [#/Vol] NINF [facility] Nucleated RBC/100 WBC (Bld) [Ratio] 0 % /100 WBC [facility] Platelet mean volume (Bld) [Entitic vol] 10.5 fL 9.0 - 12.7 fL [facility] Platelets (Bld) [#/Vol] 220 10*3/uL [facility] RBC (Bld) [#/Vol] 4.96 10*6/uL 4.20 - 6.0 0 m/uL [facility] WBC (Bld) [#/Vol] 10.33 10*3/uL [facility] Basophils (Bld) [#/Vol] 0.10 10*3/uL Normal <0.[address] [facility] Comment on above: Order Comment: Speci men Type: BLOOD SPECIMENOrdering Facility: [facility] Address: [address] [place] [address] Performed By: #### 5 7021-8 ####[facility] LABCLIA [id number] [address], [place] [address] [place] Basophils/100 WBC (Bld) 1.0 % Normal [facility] Comment on above: Order Comment: Speci men Type: BLOOD SPECIMENOrdering Facility: [facility] Address: [address] [place] [address] Performed By: #### 5 7021-8 ####[facility] LABCLIA [id number] [address], [place] [address] [place] Differential cell count method Nom (Bld) Auto Normal [facility] Comment on above: Order Comment: Speci men Type: BLOOD SPECIMENOrdering Facility: [facility] Address: [address] [place] [address] Performed By: #### 5 7021-8 ####[facility] LABCLIA [id number] [address], [place] [address] [place] Eosinophils (Bld) [#/Vol] 0.35 10*3/uL Normal <0.[address] [facility] Comment on above: Order Comment: Speci men Type: BLOOD SPECIMENOrdering Facility: [facility] Address: [address] [place] [address] Performed By: #### 5 7021-8 ####[facility] LABCLIA [id number] [address], [address] [place] Eosinophils/100 WBC (Bld) 3.4 % Normal [facility] Comment on above: Order Comment: Speci men Type: BLOOD SPECIMENOrdering Facility: [facility] Address: [address] [place] [address] Performed By: #### 5 7021-8 ####[facility] LABCLIA [id number] [place] [address] [place] Erythrocyte distribution width (RBC) [Ratio] 14.7 % Normal 11.5-15.[address] [facility] Comment on above: Order Comment: Speci men Type: BLOOD SPECIMENOrdering Facility: [facility] Address: [address] [place] [address] Performed By: #### 5 7021-8 ####[facility] LABCLIA [id number] [place] [address] [place] Hematocrit (Bld) [Volume fraction] 45.5 % Normal 39.0-51.[address] [facility] Comment on above: Order Comment: Speci men Type: BLOOD SPECIMENOrdering Facility: [facility] Address: [address] [place] [address] Performed By: #### 5 7021-8 ####[facility] LABIA [id number] [place] [address] [place] Hemoglobin (Bld) [Mass/Vol] 14.9 g/dL Normal 13.0-17.[address] [facility] Comment on above: Order Comment: Speci men Type: BLOOD SPECIMENOrdering Facility: [facility] Address: [address] [place] [address] Performed By: #### 5 7021-8 ####[facility] LABIA [id number] [place] [address] [place] Immature granulocytes (Bld) [#/Vol] 0.11 10*3/uL High <0.[address] [facility] Comment on above: Order Comment: Speci men Type: BLOOD SPECIMENOrdering Facility: [facility] Address: [address] [place] [address] Performed By: #### 5 7021-8 ####[facility] LABCLIA [id number] [place] [address] [place] Immature granulocytes/100 WBC (Bld) 1.1 % Normal [facility] Comment on above: Order Comment: Speci men Type: BLOOD SPECIMENOrdering Facility: [facility] Address: [address] [place] [address] Performed By: #### 5 7021-8 ####[facility] LABCLIA [id number] [place] [address] [place] Lymphocytes (Bld) [#/Vol] 2.01 10*3/uL Normal 1.00-4.[address] [facility] Comment on above: Order Comment: Speci men Type: BLOOD SPECIMENOrdering Facility: [facility] Address: [address] [place] [address] Performed By: #### 5 7021-8 ####[facility] LABCLIA [id number] [address] [place] Lymphocytes/100 WBC (Bld) 19.5 % Normal [facility] Comment on above: Order Comment: Speci men Type: BLOOD SPECIMENOrdering Facility: [facility] Address: [address] [place] [address] Performed By: #### 5 7021-8 ####[facility] LABCLIA [id number] [place] [address] [place] MCH (RBC) [Entitic mass] 30.0 pg Normal 26.0-34.[address] [facility] Comment on above: Order Comment: Speci men Type: BLOOD SPECIMENOrdering Facility: [facility] Address: [address] [place] [address] Performed By: #### 5 7021-8 ####[facility] LABCLIA [id number] [place] [address] [place] MCHC (RBC) [Mass/Vol] 32.7 g/dL Normal 30.5-36.[address] [facility] Comment on above: Order Comment: Speci men Type: BLOOD SPECIMENOrdering Facility: [facility] Address: [address] [place] [address] Performed By: #### 5 7021-8 ####[facility] LABCLIA [id number] [place] [address] [place] MCV (RBC) [Entitic vol] 91.7 fL Normal 80.0-100.[address] [facility] Comment on above: Order Comment: Speci men Type: BLOOD SPECIMENOrdering Facility: [facility] Address: [address] [place] [address] Performed By: #### 5 7021-8 ####[facility] LABCLIA [id number] [address] [address] [place] Monocytes (Bld) [#/Vol] 1.29 10*3/uL High <0.[address] [facility] Comment on above: Order Comment: Speci men Type: BLOOD SPECIMENOrdering Facility: [facility] Address: [address] [place] [address] Performed By: #### 5 7021-8 ####[facility] LABCLIA [id number] [address], [place] [address] [place] Monocytes/100 WBC (Bld) 12.5 % Normal [facility] Comment on above: Order Comment: Speci men Type: BLOOD SPECIMENOrdering Facility: [facility] Address: [address] [place] [address] Performed By: #### 5 7021-8 ####[facility] LABCLIA [id number] [place] [address] [place] Neutrophils (Bld) [#/Vol] 6.47 10*3/uL Normal 1.45-7.[address] [facility] Comment on above: Order Comment: Speci men Type: BLOOD SPECIMENOrdering Facility: [facility] Address: [address] [place] [address] Performed By: #### 5 7021-8 ####[facility] LABCLIA [id number] [place] [address] [place] Neutrophils/100 WBC (Bld) 62.5 % Normal [facility] Comment on above: Order Comment: Speci men Type: BLOOD SPECIMENOrdering Facility: [facility] Address: [address] [place] [address] Performed By: #### 5 7021-8 ####[facility] LABCLIA [id number] [place] [address] [place] Nucleated RBC (Bld) [#/Vol] 10*3/uL Normal <0.[address] [facility] Comment on above: Order Comment: Speci men Type: BLOOD SPECIMENOrdering Facility: [facility] Address: [address] [place] [address] Performed By: #### 5 7021-8 ####[facility] LABCLIA [id number] [place] [address] [place] Nucleated RBC/100 WBC (Bld) [Ratio] 0.0 /100 WBC Normal [facility] Comment on above: Order Comment: Speci men Type: BLOOD SPECIMENOrdering Facility: [facility] Address: [address] [place] [address] Performed By: #### 5 7021-8 ####[facility] LABCLIA [id number] [place] [address] [place] Platelet mean volume (Bld) [Entitic vol] 10.5 fL Normal 9.0-12.[address] [facility] Comment on above: Order Comment: Speci men Type: BLOOD SPECIMENOrdering Facility: [facility] Address: [address] [place] [address] Performed By: #### 5 7021-8 ####[facility] LABCLIA [id number] [place] [address] [place] Platelets (Bld) [#/Vol] 220 10*3/uL Normal 150-[address] [facility] Comment on above: Order Comment: Speci men Type: BLOOD SPECIMENOrdering Facility: [facility] Address: [address] [place] [address] Performed By: #### 5 7021-8 ####[facility] LABCLIA [id number] [place] [address] [place] RBC (Bld) [#/Vol] 4.96 10*6/uL Normal 4.20-6.00 [facility] Comment on above: Order Comment: Speci men Type: BLOOD SPECIMENOrdering Facility: [facility] Address: [address] [place] [address] Performed By: #### 5 7021-8 ####[facility] LABIA [id number] [place] [address] [place] WBC (Bld) [#/Vol] 10.33 10*3/uL Normal 3.70-11.00 [facility] Comment on above: Order Comment: Speci men Type: BLOOD SPECIMENOrdering Facility: [facility] Address: [address] [place] [address] Performed By: #### 5 7021-8 ####[facility] LABIA [id number] [address] [place] CNOVon 05-16-2024 CNOV Office Visit (FAMPWS ) JUAN JOSE FOSTER ([id number]) 1935 M Date Time Provider Department 05/16/24 1:00 PM [facility] During your visit today, we recorded the following information about you: Pulse Respiration Blood pressure Weight 87/minute 16/minute 130/68 96.3 kg Radha Berman, [employer]IMPING PRESS OPERATOR.PRIMER CHARGING TOOL SETTER 05/16/2024 6:48 PM Signed Chief Complaint Patient presents with: needs referral for pt and ot and uology referral HPI Juan Jose Foster is a 89 year old male who presents here today for Above Complaints. Juan Jose is an established patient of Dr. Jeff DO. Pt was admitted to [facility] in [place] on 04/13 and 04/15. 04/13-- dx with COPD exacerbation. Found inpatient to have influenza A. Pt refused steroid d/t side effects and left AMA the following day. 2/23 -- pt returned to ED d/t worsening [...] facility on 05/11 and drove back to [place] with and daughter. Hx of CVA in December. Never followed up with neurology d/t going to [place] for the winter months just after this. [...] Family reports legs elevated entire drive from [place] Denies any SOB. Pt is on eliquis since stroke. Needs assistance at home. Currently lives at home back in [place] with . Daughter lives nearby to help. Does not want to move into assistive living or usp. Daughter agrees if they can get PT, OT, home health aide, and detention to come to home, he should be [...] on any diuretic. Traveled by car from [place] to [place] yesterday. Reports having legs elevated during the [...] GERD (gastroesophageal reflux disease) Melanoma (HCC) 1991 [employer] Persistent atrial fibrillation (HCC) 10/11/2019 Admitted 09/05/[facility]. Followed by [facility]. Previous Surgical History PAST SURGICAL [...] (more content not included)... Normal [facility] Comprehensive metabolic 2000 panelon 05-16-2024 Albumin [Mass/Vol] 3.8 g/dL Low 3.9-4.9 [facility] Comment on above: Order Comment: Speci men Type: BLOOD SPECIMENOrdering Facility: [facility] Address: [address] [place] [address] Performed By: #### 3 016-3, 89805-4, 36740-5, 49178-9 ####[facility] LABCLIA [id number] [place] [address] [place] ALP [Catalytic activity/Vol] 126 U/L High 38-[address] [facility] Comment on above: Order Comment: Speci men Type: BLOOD SPECIMENOrdering Facility: [facility] Address: [address] [place] [address] Performed By: #### 3 016-3, 39392-9, 70567-8, 40312-3 ####[facility] LABIA [id number] [place] [address] [place] ALT [Catalytic activity/Vol] 16 U/L Normal 10-[address] [facility] Comment on above: Order Comment: Speci men Type: BLOOD SPECIMENOrdering Facility: [facility] Address: [address] [place] [address] Performed By: #### 3 016-3, 55620-7, 92699-9, 23178-3 ####[facility] LABIA [id number] [place] [address] [place] Anion gap [Moles/Vol] 10 mmol/L Normal 8-[address] [facility] Comment on above: Order Comment: Speci men Type: BLOOD SPECIMENOrdering Facility: [facility] Address: [address] [place] [address] Performed By: #### 3 016-3, 75176-9, 53254-7, 32229-1 ####[facility] LABIA [id number] [place] [address] [place] AST [Catalytic activity/Vol] 26 U/L Normal 14-[address] [facility] Comment on above: Order Comment: Speci men Type: BLOOD SPECIMENOrdering Facility: [facility] Address: [address] [place] [address] Performed By: #### 3 016-3, 96965-8, 73109-7, 73273-4 ####[facility] LABCLIA [id number] [address] [address] [place] Bilirubin [Mass/Vol] 0.9 mg/dL Normal 0.2-1.[address] [facility] Comment on above: Order Comment: Speci men Type: BLOOD SPECIMENOrdering Facility: [facility] Address: [address] [place] [address] Performed By: #### 3 016-3, 41640-7, 88884-8, 19170-9 ####[facility] LABIA [id number] [place] [address] [place] Calcium [Mass/Vol] 10.2 mg/dL Normal 8.5-10.2 [facility] Comment on above: Order Comment: Speci men Type: BLOOD SPECIMENOrdering Facility: [facility] Address: [address] [place] [address] Performed By: #### 3 016-3, 73446-6, 55994-0, 10940-4 ####[facility] LABIA [id number] [place] [address] [place] Chloride [Moles/Vol] 106 mmol/L Normal 98-[address] [facility] Comment on above: Order Comment: Speci men Type: BLOOD SPECIMENOrdering Facility: [facility] Address: [address] [place] [address] Performed By: #### 3 016-3, 01936-9, 39358-0, 28333-6 ####[facility] LABIA [id number] [place] [address] [place] CO2 [Moles/Vol] 26 mmol/L Normal 22-[address] [facility] Comment on above: Order Comment: Speci men Type: BLOOD SPECIMENOrdering Facility: [facility] Address: [address] [place] [address] Performed By: #### 3 016-3, 18121-5, 34502-5, 24919-5 ####[facility] LABIA [id number] [address] [address] [place] Creatinine [Mass/Vol] 1.29 mg/dL High 0.73-1.[address] [facility] Comment on above: Order Comment: Jayson men Type: BLOOD SPECIMENOrdering Facility: [facility] Address: [address] [place] [address] Performed By: #### 3 016-3, 73794-5, 40723-7, 36795-7 ####[facility] [id number] [place] [address] [place] Creatinine and Glomerular filtration rate.predicted panel (S/P/Bld) 53 mL/min/1.73m??? Low >=[address] [facility] Comment on above: Order Comment: Jayson moffett Type: BLOOD SPECIMENOrdering Facility: [facility] Address: [address] [place] [address] Result Comment: Yani mated Glomerular Filtration Rate [...] actual GFR. Performed By: #### 3 016-3, 35546-6, 99620-1, 85676-0 ####[facility] LABIA [id number] [address] [address] [place] Glucose [Mass/Vol] 117 mg/dL High 74-99 [facility] Comment on above: Order Comment: Jayson moffett Type: BLOOD SPECIMENOrdering Facility: [facility] Address: [address] [place] [address] Result Comment: The [place] Diabetes Association (ADA) provides guidance for cutoff [...] Standards of Medical Care in Diabetes 2016, [place] [employer] Association. Diabetes Care. 2016.39(Suppl 1). Performed By: #### 3 016-3, 80382-0, 78358-7, 35219-0 ####[facility] LABIA [id number] [place] [address] [place] Potassium [Moles/Vol] 4.2 mmol/L Normal 3.7-5.[address] [facility] Comment on above: Order Comment: Speci men Type: BLOOD SPECIMENOrdering Facility: [facility] Address: [address] [place] [address] Performed By: #### 3 016-3, 08303-5, 91942-0, 44194-8 ####[facility] [id number] [place] [address] [place] Protein [Mass/Vol] 7.3 g/dL Normal 6.3-8.0 [facility] Comment on above: Order Comment: Speci men Type: BLOOD SPECIMENOrdering Facility: [facility] Address: [address] [place] [address] Performed By: #### 3 016-3, 15738-5, 18309-4, 97864-1 ####[facility] LABIA [id number] [place] [address] [place] Sodium [Moles/Vol] 142 mmol/L Normal 136-144 [facility] Comment on above: Order Comment: Speci men Type: BLOOD SPECIMENOrdering Facility: [facility] Address: [address] [place] [address] Performed By: #### 3 016-3, 26382-4, 11719-7, 64999-9 ####[facility] LABCLIA [id number] [address] [address] [place] Urea nitrogen [Mass/Vol] 21 mg/dL Normal 9-[address] [facility] Comment on above: Order Comment: Speci men Type: BLOOD SPECIMENOrdering Facility: [facility] Address: [address] [place] [address] Performed By: #### 3 016-3, 91029-7, 75289-2, 47070-3 ####[facility] LABCLIA [id number] [address] [address] [place] HbA1c (Bld)on 05-16-2024 Average glucose Estimated from glycated hemoglobin (Bld) [Mass/Vol] 148 mg/dL [facility] Comment on above: eAG: (Estimated aver age glucose) is a calculated value from HgbA1c and is financial sales representative of the average blood glucose level in the last 2-3 month period. HbA1c (Bld) [Mass fraction] 6.8 % High 4.3 - 5.6 % [facility] Comment on above: [place] Diabetes As sociation guidelines indicate that patients with HgbA1c in the range 5.7-6.4% are at increased risk for development of diabetes, and intervention by lifestyle modification may be beneficial. HgbA1c greater or equal to 6.5% is considered diagnostic of diabetes. Interpretation and review of laboratory results Abnormal [facility] Average glucose Estimated from glycated hemoglobin (Bld) [Mass/Vol] 148 mg/dL Normal [facility] Comment on above: Order Comment: Speci men Type: BLOOD SPECIMENOrdering Facility: [facility] Address: [address] [place] [address] Result Comment: eAG: (Estimated average glucose) is a calculated value from HgbA1c and is financial sales representative of the average blood glucose level in the last 2-3 month period. Performed By: #### 5 5454-3 ####[facility] LABCLIA [id number] [address] [address] [place] HbA1c (Bld) [Mass fraction] 6.8 % High 4.3-5.[address] [facility] Comment on above: Order Comment: Jayson zuhair Type: BLOOD SPECIMENOrdering Facility: [facility] Address: [address] [place] [address] Result Comment: [place] Diabetes Association guidelines indicate that patients with HgbA1c in the range 5.7-6.4% are at increased risk for development of diabetes, and intervention by lifestyle modification may be beneficial. HgbA1c greater or equal to 6.5% is considered diagnostic of diabetes. Performed By: #### 5 5454-3 ####[facility] LABCLIA [id number] [address] [place] Lipid 1996 panelon 5 Cholesterol [Mass/Vol] 65 mg/dL Normal <[address] [facility] Comment on above: Order Comment: Jayson moffett Type: BLOOD SPECIMENOrdering Facility: [facility] Address: [address] [place] [address] Result Comment: <200 mg/dL, Desirable 200-239 mg/dL, Borderline high >239 mg/dL, High Performed By: #### 3 016-3, 23688-3, 25395-1, 15316-3 ####[facility] LABCLIA [id number] [address] [place] Cholesterol in HDL [Mass/Vol] 27 mg/dL Low >[address] [facility] Comment on above: Order Comment: Simongonzález moffett Type: BLOOD SPECIMENOrdering Facility: [facility] Address: [address] [place] [address] Result Comment: 40-5 9 mg/dL, Acceptable >59 mg/dL, High: Negative risk factor for coronary heart disease <40 mg/dL, Low: Positive risk factor for coronary heart disease Performed By: #### 3 016-3, 98626-4, 32204-6, 86107-5 ####[facility] LABCLIA [id number] [place] [address] [facility] [place] Cholesterol in LDL [Mass/Vol] 21 mg/dL Normal <[address] [facility] Comment on above: Order Comment: Speci men Type: BLOOD SPECIMENOrdering Facility: [facility] Address: [address] [place] [address] Result Comment: <100 mg/dL, Optimal 100-129 mg/dL, Near optimal/above optimal 130-159 mg/dL, Borderline high 160-189 mg/dL, High >189 mg/dL, Very high Secondary prevention optimal LDL Cholesterol levels are recommended to be < 70 mg/dL Performed By: #### 3 016-3, 96154-5, 94409-0, 93456-5 ####[facility] LABCLIA [id number] [address] [place] Cholesterol in LDL/Cholesterol in HDL [Mass ratio] 0.78 {ratio} Normal <2.[address] [facility] Comment on above: Order Comment: Speci men Type: BLOOD SPECIMENOrdering Facility: [facility] Address: [address] [place] [address] Result Comment: Refe rence: 1. National Cholesterol Education Program ATP III Guideline At-A-Glance Quick Desk Reference: National Heart, Lung, and Blood [place]. National Institutes of Health. 2001: NIH Publication No. 01-3305. 2. An International Atherosclerosis Society position paper: global recommendations for the management of dyslipidemia: executive summary, Atherosclerosis. 2014: 232(2):410-413. Performed By: #### 3 016-3, 27829-9, 31934-4, 83795-8 ####[facility] LABCLIA [id number] [address] [address] [place] Cholesterol in VLDL [Mass/Vol] 17 mg/dL Normal <[address] [facility] Comment on above: Order Comment: Speci men Type: BLOOD SPECIMENOrdering Facility: [facility] Address: [address] [place] [address] Performed By: #### 3 016-3, 53002-4, 83102-5, 02838-1 ####[facility] LABCLIA [id number] [place] [id number] [place] Cholesterol non HDL [Mass/Vol] 38 mg/dL Normal <[address] [facility] Comment on above: Order Comment: Speci men Type: BLOOD SPECIMENOrdering Facility: [facility] Address: [address] [place] [address] Result Comment: <130 mg/dL, Optimal 130-159 mg/dL, Near optimal/above optimal 160-189 mg/dL, Borderline high 190-219 mg/dL, High >219 mg/dL, Very high Secondary prevention optimal non HDL Cholesterol levels are recommended to be <100 mg/dL Performed By: #### 3 016-3, 08297-7, 47652-7, 98654-0 ####[facility] LABCLIA [id number] [place] [address] [place] Cholesterol.total/C holesterol in HDL [Mass ratio] 2.41 {ratio} Normal <5.[address] [facility] Comment on above: Order Comment: Speci men Type: BLOOD SPECIMENOrdering Facility: [facility] Address: [address] [place] [address] Performed By: #### 3 016-3, 75138-6, 69556-3, 22614-5 ####[facility] LABCLIA [id number] [place] [address] [place] FASTING TIME 3 hrs Normal [facility] Comment on above: Order Comment: Speci men Type: BLOOD SPECIMENOrdering Facility: [facility] Address: [address] [place] [address] Performed By: #### 3 016-3, 17177-2, 27939-4, 87487-8 ####[facility] LABCLIA [id number] [place] [address] [place] Triglyceride [Mass/Vol] 85 mg/dL Normal <[address] [facility] Comment on above: Order Comment: Speci men Type: BLOOD SPECIMENOrdering Facility: [facility] Address: [address] [place] [address] Result Comment: <150 mg/dL, Normal 150-199 mg/dL, Borderline high 200-499 mg/dL, High >499 mg/dL, Very high Performed By: #### 3 016-3, 24374-0, 45961-3, 24038-3 ####[facility] LABCLIA [id number] [address] NT-proBNP [facility]16 Natriuretic peptide.B prohormone N-Terminal [Mass/Vol] 3593 pg/mL High <[address] [facility] Comment on above: Order Comment: Speci men Type: BLOOD SPECIMENOrdering Facility: [facility] Address: [address] [place] [address] Performed By: #### 3 016-3, 94711-1, 68009-0, 91847-0 ####[facility] LABIA [id number] [address] OF [place] TSH SerPl-aCncon 05-16-2024 TSH Qn 2.660 m[IU]/L Normal 0.270-4.[address] [facility] Comment on above: Order Comment: Speci men Type: BLOOD SPECIMENOrdering Facility: [facility] Address: [address] [place] [address] Performed By: #### 3 016-3, 02864-2, 64577-2, 78893-6 ####[facility] [id number] [address] OF [place] CNPNon 01-31-2024 CNPN Telephone (CAWSTR) JUAN JOSE FOSTER ([id number]) 1935 M Date Time Provider Department 01/31/24 ANALISA NICOLE CAWSTR During your visit today, we recorded [...] Encounter Status:Closed by VALE JACK on 01/31/24 [facility] Catie 01-09-2024 [facility] Telephone (FAMPWS) JUAN JOSE FOSTER ([id number]) 1935 M Date Time Provider Department 01/09/24 [facility] During your visit today, we recorded the following information about you: Monica Vernon LPN 01/09/2024 1:28 PM Signed Pt calls states has been trying to take the atorvastatin but keeps getting terrible diarrhea. Asking if something different could be called into pharmacy in its place. Pt is [facility] wanting this called to [facility] . Dipak Aguilar DO 01/10/2024 4:26 PM Signed Please have patient stop the lipitor and trial on rx as below Dipak Aguilar DO The following approved medication requests have been transmitted electronically. Requested Prescriptions Signed Prescriptions Disp Refills rosuvastatin (CRESTOR) 20 mg tablet 90 tablet 1 Sig: Take 1 tablet by mouth daily at bedtime. Authorizing Provider: DIPAK AGUILAR DO Detwiler-Green, Susan OUTBOARD MOTOR INSPECTOR 01/10/2024 4:32 PM Signed Pt. informed. Allergies [...] encounter ATORVASTATIN 40 MG TABLET >> Dipak Aguilar, 01/10/2024 4:26 PM diarrhea Problem List As [...] JASON BEJARANO LPN on 01/10/24 [facility] Catie 01-04-2024 [facility] Telephone (AGCARDPOB ) JUAN JOSE FOSTER ([id number]) 1935 M Date Time Provider Department 01/04/24 ANALISA NICOLE KnodiumWAQAS During your visit today, we recorded the following information about you: Nuzhat Escobar 01/04/2024 2:53 PM Signed Clearance scanned in from [facility] placed in Dr. Mar meade to [...] Encounter Status:Closed by NUZHAT ESCOBAR on 01/04/24 [facility] Catie 12-13-2023 [facility] Telephone (FAMPWS) JUAN JOSE FOSTER ([id number]) 1935 M Date Time Provider Department 12/13/23 JUDITH GARCIA During your visit today, we [...] his appointment. Otherwise everything else looks good. YOSELYN Case Kathryn, MA 12/13/2023 8:53 AM Signed Pt notified. He received an email from the lung nodule clinic but states he leaves tomorrow for [place] for 6 months and will call to set up appt when he returns. MADISYN Trevino Rebekah, APRN.CNP 12/13/2023 1:34 PM Signed Noted, thank you. Judith Gracia APRN.CNP Allergies As of Date: 12/13/2023 Noted Allergy Reaction CYPRESS 09/22/2010 14 - Other: See Comments Comments: sneezing,runny nose CEDAR 08/17/2010 3 - Cough Comments: also [place] with same reaction MOLD 08/17/2010 3 - Cough Date Reviewed: 12/12/2023 Reviewed by: Nessa Ingram RT(R) - Partially Assessed Reason for Visit: Results [95] Appointment [186] Primary Visit Diagnosis:Lung nodule [R91.1] Order(s):CONSULT TO LUNG NODULE CLINIC [9597210] Order #: [id number]: 1 FUTURE Prescriptions as of 12/13/2023 - [...] Encounter Status:Closed by JUDITH GARCIA on 12/13/23 [facility] CNNURSEon 12-12-2023 [facility] (CAWSTR) JUAN JOSE FOSTER ([id number]) 1935 M Date Time Provider Department 12/12/23 11:20 AM NURSE CARD ADMIN [facility] CAWSTR During your visit today, we recorded [...] Vale Jack RN Reversal agent used:None LOT [id number] EXP 06/16 IV SITE: IV palced by nuclear tecnologist POST EXAM PIV STATUS: Discontinued by Mri Technician PATIENT DISCHARGED TO: Nuclear Medicine Department for post stress imaging A Diagnostic radioactive procedure has taken place, with no further precautions necessary other than routine body substance precautions. More information regarding radiation safety can be found using this link: [email or web address] [email or web address] SIGNATURE: Vale Jack RN PATIENT NAME:Juan Jose Foster DATE: 12/12/23 TIME: 3:56 PM Referring Provider: ANALISA NICOLE [[id number]] Allergies As of Date: 12/12/2023 Noted Allergy [...] Encounter Status:Closed by VALE JACK on 12/12/23 Normal [facility] 12-12-2023 [facility] Telephone (CAWSTR) JUAN JOSE FOSTER ([id number]) 1935 M Date Time Provider Department 12/12/23 [...] as well. Please call patient back at [phone]. Ananya Carter LPN Allergies As of Date: [...] (HCC) [N18.31] 11/16/2021 Encounter Status:Closed by ANANYA CARTRE on 12/12/[address] [facility] NM CARDIAC PERF STRESS/PHARM on 12-12-2023 NM CARDIAC PERF STRESS/PHARM * * *Final Report* [...] later. See administered radiotracer and doses below. [facility] Date of service: 12/12/2023 7:52:14 AM Ordering [...] Final * * * Stress ECG Report: [facility] Date of service: 12/12/2023 7:52:14 AM Ordering physician: ANALISA NICOLE acute care clinical nurse specialist: Vale Jack RN Interpreting physician: Ilan Mtaa MD Patient name: MR. JUAN JOSE FOSTER [...] 148/82 mmHg. The double product achieved was [id number]. Medications: Last Used METOPROLOL 2 Days Resting [...] Stress Observati (more content not included)... Normal [facility] Heart Perfusion W stress and W radionuclide Chuck 12-12-2023 * * *Final Report* * * DATE OF EXAM: Dec 12 2023 12:50PM [address] CARDIAC PERF STRESS/PHARM / PROCEDURE REASON: [...] later. See administered radiotracer and doses below. [facility] Date of service: 12/12/2023 7:52:14 AM Ordering [...] Final * * * Stress ECG Report: [facility] Date of service: 12/12/2023 7:52:14 AM Ordering physician: ANALISA NICOLE acute care clinical nurse specialist: Vale Jack RN Interpreting physician: Ilan [...] 148/82 mmHg. The double product achieved was [id number]. Medications: Last Used METOPROLOL 2 Days Resting ECG: Atrial Fib/Flutter, Complete RBBB and Rare PVCs (<3/Min) Symptoms at rest: No symptoms Pharamcologic Protocol: Regadenoson Stress Exercise Table: +-----+---+---+---+ Stage HR SYS AVUGHN +-----+---+---+---+ 1 130 +-----+---+---+---+ 2 130 122 72 +-----+---+---+---+ 3 123 +-----+---+---+---+ 4 120 148 82 +-----+---+---+---+ +-----+---+---+---+ HR SYS VAUGHN +-----+---+---+---+ Final 120 148 82 +-----+---+---+---+ +------+ + Stage Arrhythmias (more content not included)... DIVISION OF RADIOLOGY Provider, [facility] - 12/12/2023 * * *Final Report* * * DATE OF EXAM: Dec 12 2023 12:50PM MAHOGANY 0006 - RONDA CARDIAC PERF STRESS/PHARM / PROCEDURE REASON: Shortness [...] later. See administered radiotracer and doses below. [facility] Date of service: 12/12/2023 7:52:14 AM Ordering [...] Final * * * Stress ECG Report: [facility] Date of service: 12/12/2023 7:52:14 AM Ordering physician: ANALISA NICOLE acute care clinical nurse specialist: Vale Jack RN Interpreting physician: Ilan [...] 148/82 mmHg. The double product achieved was [id number]. Medications: Last Used METOPROLOL 2 Days Resting [...] +------+---+---+---+ 1 115 (more content not included)... [facility] Radiology Study observation (narrative) [facility] NM Heart Perfusion W stress and W radionuclide IVOrdered By: Ccf Provider on 12-12-2023 [facility] Catie 12-06-2023 CNPN Telephone (FAMPWS) JUAN JOSE FOSTER ([id number]) 1935 M Date Time Provider Department 12/06/23 DIPAK AGUILAR [facility] During your visit today, we recorded the following information about you: Dipak Aguilar DO 12/06/2023 9:42 AM Signed Please inform patient that his iron levels are normal DO Whitley Baeza Brittany L, MA 12/06/2023 10:38 AM Signed Patient active MyChart. Patient notified via [employer] message. Jair Ziegler MA Allergies As of [...] JAIR ZIEGLER on 12/06/[address] [facility] CBC W Auto Differential pane l (Bld)on 12-05-2023 Basophils (Bld) [#/Vol] 0.11 10*3/uL High <0.[address] [facility] Comment on above: Order Comment: Speci men Type: BLOOD SPECIMENOrdering Facility: [facility] Address: [address] [place], [place] [address] [address] Performed By: #### 5 7021-8 ####[facility] [id number] [place] [address] [place] Basophils/100 WBC (Bld) 1.1 % Normal [facility] Comment on above: Order Comment: Speci men Type: BLOOD SPECIMENOrdering Facility: [facility] Address: [address] [place] [address] Performed By: #### 5 7021-8 ####[facility] STEPHANIEISAC [id number] [place] [address] [place] Differential cell count method Nom (Bld) Auto Normal [facility] Comment on above: Order Comment: Speci men Type: BLOOD SPECIMENOrdering Facility: [facility] Address: [address] [place] [address] Performed By: #### 5 7021-8 ####[facility] CAMPUSNCELEUTERIO [id number] [place] [address] [place] Eosinophils (Bld) [#/Vol] 0.60 10*3/uL High <0.[address] [facility] Comment on above: Order Comment: Speci men Type: BLOOD SPECIMENOrdering Facility: [facility] Address: [address] [place] [address] Performed By: #### 5 7021-8 ####[facility] CAMPUSNCLIA [id number] [place] [address] [place] Eosinophils/100 WBC (Bld) 5.8 % Normal [facility] Comment on above: Order Comment: Speci men Type: BLOOD SPECIMENOrdering Facility: [facility] Address: [address] [place] [address] Performed By: #### 5 7021-8 ####[facility] CAMPUSNCLIA [id number] [place] [address] [place] Erythrocyte distribution width (RBC) [Ratio] 14.0 % Normal 11.5-15.[address] [facility] Comment on above: Order Comment: Speci men Type: BLOOD SPECIMENOrdering Facility: [facility] Address: [address] [place] [address] Performed By: #### 5 7021-8 ####[facility] HOSPITALLIA [id number] [place] [address] [place] Hematocrit (Bld) [Volume fraction] 49.8 % Normal 39.0-51.[address] [facility] Comment on above: Order Comment: Speci men Type: BLOOD SPECIMENOrdering Facility: [facility] Address: [address] [place] [address] Performed By: #### 5 7021-8 ####[facility] [id number] [place] [address] [place] Hemoglobin (Bld) [Mass/Vol] 17.2 g/dL High 13.0-17.[address] [facility] Comment on above: Order Comment: Speci men Type: BLOOD SPECIMENOrdering Facility: [facility] Address: [address] [place] [address] Performed By: #### 5 7021-8 ####[facility] [id number] [place] [address] [place] Immature granulocytes (Bld) [#/Vol] 0.16 10*3/uL High <0.[address] [facility] Comment on above: Order Comment: Speci men Type: BLOOD SPECIMENOrdering Facility: [facility] Address: [address] [place] [address] Performed By: #### 5 7021-8 ####[facility] [id number] [place] [address] [place] Immature granulocytes/100 WBC (Bld) 1.5 % Normal [facility] Comment on above: Order Comment: Speci men Type: BLOOD SPECIMENOrdering Facility: [facility] Address: [address] [place] [address] Performed By: #### 5 7021-8 ####[facility] [id number] [place] [address] [place] Lymphocytes (Bld) [#/Vol] 1.87 10*3/uL Normal 1.00-4.[address] [facility] Comment on above: Order Comment: Speci men Type: BLOOD SPECIMENOrdering Facility: [facility] Address: [address] [place] [address] Performed By: #### 5 7021-8 ####[facility] CAMPUSNCLIA [id number] [place] [address] [place] Lymphocytes/100 WBC (Bld) 18.0 % Normal [facility] Comment on above: Order Comment: Speci men Type: BLOOD SPECIMENOrdering Facility: [facility] Address: [address] [place] [address] Performed By: #### 5 7021-8 ####[facility] [id number] [place] [address] [place] MCH (RBC) [Entitic mass] 30.4 pg Normal 26.0-34.[address] [facility] Comment on above: Order Comment: Speci men Type: BLOOD SPECIMENOrdering Facility: [facility] Address: [address] [place] [address] Performed By: #### 5 7021-8 ####[facility] [id number] [place] [address] [place] MCHC (RBC) [Mass/Vol] 34.5 g/dL Normal 30.5-36.[address] [facility] Comment on above: Order Comment: Speci men Type: BLOOD SPECIMENOrdering Facility: [facility] Address: [address] [place], [place] [address] Performed By: #### 5 7021-8 ####[facility] HOSPITALLI [id number] [place] [address] [place] MCV (RBC) [Entitic vol] 88.0 fL Normal 80.0-100.[address] [facility] Comment on above: Order Comment: Speci men Type: BLOOD SPECIMENOrdering Facility: [facility] Address: [address] [place] [address] Performed By: #### 5 7021-8 ####[facility] STEPHANIEHAVRE DE GRACENCLIA [id number] [place] [address] [place] Monocytes (Bld) [#/Vol] 0.87 10*3/uL High <0.[address] [facility] Comment on above: Order Comment: Speci men Type: BLOOD SPECIMENOrdering Facility: [facility] Address: [address] [place] [address] Performed By: #### 5 7021-8 ####[facility] HOSPITALA [id number] [place] [address] [place] Monocytes/100 WBC (Bld) 8.4 % Normal [facility] Comment on above: Order Comment: Speci men Type: BLOOD SPECIMENOrdering Facility: [facility] Address: [address] [place] [address] Performed By: #### 5 7021-8 ####[facility]ITALA [id number] [place] [address] [place] Neutrophils (Bld) [#/Vol] 6.77 10*3/uL Normal 1.45-7.[address] [facility] Comment on above: Order Comment: Speci men Type: BLOOD SPECIMENOrdering Facility: [facility] Address: [address] [place] [address] Performed By: #### 5 7021-8 ####[facility] CAMPUSNCLIA [id number] [place] [address] [place] Neutrophils/100 WBC (Bld) 65.2 % Normal [facility] Comment on above: Order Comment: Speci men Type: BLOOD SPECIMENOrdering Facility: [facility] Address: [address] [place] [address] Performed By: #### 5 7021-8 ####[facility] HOSPITALLIA [id number] [place] [address] [place] Nucleated RBC (Bld) [#/Vol] 10*3/uL Normal <0.[address] [facility] Comment on above: Order Comment: Speci men Type: BLOOD SPECIMENOrdering Facility: [facility] Address: [address] [place] [address] Performed By: #### 5 7021-8 ####[facility] CAMPUSCURTIS [id number] [place] [address] [place] Nucleated RBC/100 WBC (Bld) [Ratio] 0.0 /100 WBC Normal [facility] Comment on above: Order Comment: Speci men Type: BLOOD SPECIMENOrdering Facility: [facility] Address: [address] [place] [address] Performed By: #### 5 7021-8 ####[facility] [id number] [place] [address] [place] Platelet mean volume (Bld) [Entitic vol] 9.7 fL Normal 9.0-12.[address] [facility] Comment on above: Order Comment: Speci men Type: BLOOD SPECIMENOrdering Facility: [facility] Address: [address] [place] [address] Performed By: #### 5 7021-8 ####[facility] HOSPITALJAIMIEA [id number] [place] [address] [place] Platelets (Bld) [#/Vol] 226 10*3/uL Normal 150-[address] [facility] Comment on above: Order Comment: Speci men Type: BLOOD SPECIMENOrdering Facility: [facility] Address: [address] [place] [address] Performed By: #### 5 7021-8 ####[facility] CAMPUSNCLI [id number] [place] [address] [place] RBC (Bld) [#/Vol] 5.66 10*6/uL Normal 4.20-6.00 [facility] Comment on above: Order Comment: Speci men Type: BLOOD SPECIMENOrdering Facility: [facility] Address: [address] [place] [address] Performed By: #### 5 7021-8 ####[facility] CAMPUSNCLIA [id number] [place] [address] [place] WBC (Bld) [#/Vol] 10.38 10*3/uL Normal 3.70-11.00 [facility] Comment on above: Order Comment: Speci men Type: BLOOD SPECIMENOrdering Facility: [facility] Address: [address] [place] [address] Performed By: #### 5 7021-8 ####[facility] CAMPUSNCLIA [id number] [place] [address] [place] [address] CHEST WO IVCONon 12-05-19 CT CHEST WO IVCON * * *Final Report* * * DATE OF EXAM: Dec 05 2023 11:51AM [facility] - CT CHEST WO IVCON / [...] Recommendation: Consult to [facility] - [id number] Time Frame: at the discretion of the clinical team. Comments: Follow-up for this incidentally detected lung nodule with PET/CT or Biopsy within 4 weeks, or Chest CT exam in 3 months is recommended. --END OF FINDING-- Snubber: BLANK Transcribe Date/Time: Dec 12 2023 10:45A Dictated by : ARLIN MILAN MD This examination was interpreted and the report reviewed and electronically signed by: ARLIN MILAN MD on Dec 12 2023 10:59AM EST [id number] [id number] Invalid Interpretation Code [facility] Iron and Iron binding capaci ty panelon 12-05-2023 Iron [Mass/Vol] 86 ug/dL Normal 41-[address] [facility] Comment on above: Order Comment: Speci men Type: BLOOD SPECIMENOrdering Facility: [facility] Address: [address] [place] [address] Performed By: #### 5 0190-8 ####[facility] LABCLIA [id number] [place] [address] [place] Iron binding capacity [Mass/Vol] 359 ug/dL Normal 232-[address] [facility] Comment on above: Order Comment: Speci men Type: BLOOD SPECIMENOrdering Facility: [facility] Address: [address] [place] [address] Performed By: #### 5 0190-8 ####[facility] LABIA [id number] [place] [address] [place] Iron/TIBC [Molar ratio] 24.0 % Normal 15.0-57.[address] 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 PULMONARY FUNCTION LAB [facility] SPIROMETRY - BASELINE AND PO ST MENDEZZAYRAmichael 12-05-2023 ERV BOX (L) 0.62 L [facility] ERV PREDICTED (L) 1.30 L/S [facility] FEF25% POST (L/S) 5.94 L/S [facility] FEF25% PRE (L/S) 5.73 L/S [facility] IMU82-35% LLN (L/S) 0.63 L/S [facility] NVL98-62% POST (L/S) 1.74 L/S [facility] UWG95-95% PRE (L/S) 1.43 L/S [facility] HFX20-71% PREDICTED (L/S) 1.86 L/S [facility] FEF75% LLN (L/S) 0.14 L/S [facility] FEF75% POST (L/S) 0.58 L/S [facility] FEF75% PRE (L/S0 0.47 L/S [facility] FEF75% PREDICTED (L/S) 0.43 L/S [facility] FEF75% ULN (L/S) 1.34 L/S [facility] FET POST (S) 10.56 S [facility] FET PRE (S) 9.39 S [facility] FEV1 LLN (L) 1.99 L [facility] FEV1 PRE (L) 2.33 L [facility] FEV1 PREDICTED (L) 2.78 L [facility] FEV1 ULN (L) 3.53 L [facility] FEV1/FVC LLN (%) 59 % [facility] FEV1/FVC POST (%) 71 % [facility] FEV1/FVC PRE (%) 70 % [facility] FEV1/FVC PREDICTED (%) 74 % [facility] FEV1_POST (L) 2.44 L [facility] FRC Box (L) 3.71 L [facility] FVC LLN (L) 2.85 L [facility] FVC POST (L) 3.44 L [facility] FVC PRE (L) 3.34 L [facility] FVC PREDICTED (L) 3.89 L [facility] FVC ULN (L) 4.96 L [facility] IC BOX (L) 2.43 L [facility] IC PREDICTED (L) 2.60 L/S [facility] PEF LLN (L/S) 4.18 L/S [facility] PEF POST (L/S) 6.41 L[facility] PEF PRE (L/S) 5.95 L/S [facility] PEF ULN (L/S) 9.06 L/S [facility] RV Box (L) 3.09 L [facility] RV Box PREDICTED (L) 2.91 L [facility] RV/TLC Box (%) 50 % [facility] RV/TLC Box PREDICTED (%) 41 % [facility] SVC LLN (L) 2.85 L/S [facility] SVC PREDICTED (L) 3.89 L/S [facility] SVC ULN (L) 4.96 L/S [facility] TLC Box (L) 6.16 L [facility] TLC Box PREDICTED (L) 7.45 L [facility] VC (L) BOX 3.28 L [facility] CNOVon 11-29-2023 CNOV Office Visit (FAMPWS ) JUAN JOSE FOSTER ([id number]) 1935 M Date Time Provider Department 11/29/23 [...] his doctor during the winter months in [place]. States they always say everything is fine. [...] GERD (gastroesophageal reflux disease) Melanoma (HCC) 1991 [place] [employer] Persistent atrial fibrillation (HCC) 10/11/2019 Admitted 09/05/[facility]. Followed by [facility]. Previous Surgical History PAST SURGICAL HISTORY Procedure [...] 2011 L Rotator cuff repair - bilateral [facility] PAST SURGICAL HISTORY OF plastic surgery for (more content not included)... Normal [facility] XR HIP BILATERAL 5V PEL/AP/L AT EACH HIPon 11-24-2023 IMPRESSION: No acute abnormality Snubber: BLANK Transcribe Date/Time: Nov 24 2023 6:25P Dictated by : MARIANA CARABALLO MD This examination was interpreted and the report reviewed and electronically signed by: MARIANA CARABALLO MD on Nov 24 2023 6:25PM [facility] * * *Final Report* * * [...] Sacroiliac joints and symphysis pubis are maintained. [facility] Provider, Edgardo Diamond [facility] - 11/24/2023 * * *Final Report* [...] are maintained. IMPRESSION IMPRESSION: No acute abnormality Snubber: [facility] Transcribe Date/Time: Nov 24 2023 6:25P Dictated by : MARIANA CARABALLO MD This examination was interpreted and the report reviewed and electronically signed by: MARIANA CARABALLO MD on Nov 24 2023 6:25PM EST [facility] XR Knee - right 4 Viewson IMPRESSION: Interval TKA. Acute abnormality Snubber: PSCB Transcribe Date/Time: Nov 24 2023 6:24P Dictated by : MARIANA CARABALLO MD This examination was interpreted and the report reviewed and electronically signed by: MARIANA CARABALLO MD on Nov 24 2023 6:25PM EST [facility] * * *Final Report* * * [...] No joint effusion or soft tissue swelling. [facility] Provider, Edgardo Anguiano - 11/24/2023 * [...] swelling. IMPRESSION IMPRESSION: Interval TKA. Acute abnormality Snubber: PSCB Transcribe Date/Time: Nov 24 2023 6:24P Dictated by : MARIANA CARABALLO MD This examination was interpreted and the report reviewed and electronically signed by: MARIANA CARABALLO MD on Nov 24 2023 6:25PM EST [facility] XR Knee - right 4 ViewsOrder ed By: [facility] Provider on 11-24-2023 [facility] XR Lumbar spine AP and Later margie 11-24-2023 IMPRESSION: Degenera tive changes Snubber: PSCB Transcribe Date/Time: Nov 24 2023 9:37P Dictated by : MARIANA CARABALLO MD This examination was interpreted and the report reviewed and electronically signed by: MARIANA CARABALLO MD on Nov 24 2023 9:38PM EST [facility] * * *Final Report* * * DATE OF EXAM: Nov 23 2023 8:56AM YIMI 5229 - XR LUMBAR 2V AP/LAT / [...] SI joint. Partially visualized bilateral hip arthroplasties. [facility] Provider, Edgardo Anguiano - 11/24/2023 * * *Final Report* * * DATE OF EXAM: Nov 23 2023 8:56AM O 5229 - XR LUMBAR 2V AP/LAT / [...] bilateral hip arthroplasties. IMPRESSION IMPRESSION: Degenerative changes Snubber: PSCB Transcribe Date/Time: Nov 24 2023 9:37P Dictated by : MARIANA CARABALLO MD This examination was interpreted and the report reviewed and electronically signed by: MARIANA CARABALLO MD on Nov 24 2023 9:38PM [facility] CNOVon 11-23-2023 CNOV Office Visit (ORMDNA ) JUAN JOSE FOSTER ([id number]) 1935 M Date Time Provider Department 11/23/23 [...] prolonged per (more content not included)... Normal [facility] No Panel Informationon 11-22 Radiology Study observation (narrative) [facility] XR HIP KOBI 5V PEL+ AP/LAT EA [...] pubis are maintained. IMPRESSION: No acute abnormality Snubber: BLANK Transcribe Date/Time: Nov 24 2023 6:25P Dictated by : MARIANA CARABALLO MD This examination was interpreted and the report reviewed and electronically signed by: MARIANA CARABALLO MD on Nov 24 2023 6:25PM EST [id number] [facility] XR KNEE 4V AP/PA BOTH+LAT/ME R [...] tissue swelling. IMPRESSION: Interval TKA. Acute abnormality Snubber: [facility] Transcribe Date/Time: Nov 24 2023 6:24P Dictated by : MARIANA CARABALLO MD This examination was interpreted and the report reviewed and electronically signed by: MARIANA CARABALLO MD on Nov 24 2023 6:25PM EST [id number] [facility] XR LUMBAR 2V AP/LATon 2023 XR LUMBAR 2V AP/LAT * * *Final Report* * * DATE OF EXAM: Nov 23 2023 8:56AM YIMI 5229 - XR LUMBAR 2V AP/LAT / [...] visualized bilateral hip arthroplasties. IMPRESSION: Degenerative changes Snubber: [facility] Transcribe Date/Time: Nov 24 2023 9:37P Dictated by : MARIANA CARABALLO MD This examination was interpreted and the report reviewed and electronically signed by: MARIANA CARABALLO MD on Nov 24 2023 9:38PM EST [id number] Normal [facility] XR Lumbar spine AP and Later margie 11-23-2023 Radiology Study observation (narrative) [facility] 25(OH)D3 SerPl-mCncon 2023 25-hydroxyvitamin D3 [Mass/Vol] 43.4 ng/mL Normal 31.0-80.[address] [facility] Comment on above: Order Comment: Speci men Type: BLOOD SPECIMENOrdering Facility: [facility] Address: [address] [place] [address] Result Comment: Clas sification of 25 [place] Vitamin D status: Deficiency/Insufficiency: < or = 30 ng/ml. Sufficiency/Optimal Levels: 31-80 ng/mL Toxicity: > 100 ng/mL. Test performed by chemiluminescent immunoassay. Performed By: #### 1 989-3 ####[facility] LABIA [id number] [place] [address] [place] CBC W Auto Differential pane l (Bld)on 11-04-2023 Basophils (Bld) [#/Vol] 0.09 10*3/uL Normal <0.[address] [facility] Comment on above: Order Comment: Speci men Type: BLOOD SPECIMENOrdering Facility: [facility] Address: [address] [place] [address] Performed By: #### 5 7021-8 ####[facility] LABCLIA [id number] [place] [address] [place] Basophils/100 WBC (Bld) 0.9 % Normal [facility] Comment on above: Order Comment: Speci men Type: BLOOD SPECIMENOrdering Facility: [facility] Address: [address] [place] [address] Performed By: #### 5 7021-8 ####[facility] LABCLIA [id number] [place] [address] [place] Differential cell count method Nom (Bld) Auto Normal [facility] Comment on above: Order Comment: Speci men Type: BLOOD SPECIMENOrdering Facility: [facility] Address: [address] [place] [address] Performed By: #### 5 7021-8 ####[facility] LABCLIA [id number] [place] [address] [place] Eosinophils (Bld) [#/Vol] 0.34 10*3/uL Normal <0.[address] [facility] Comment on above: Order Comment: Speci men Type: BLOOD SPECIMENOrdering Facility: [facility] Address: [address] [place] [address] Performed By: #### 5 7021-8 ####[facility] LABCLIA [id number] [place] [address] [place] Eosinophils/100 WBC (Bld) 3.6 % Normal [facility] Comment on above: Order Comment: Speci men Type: BLOOD SPECIMENOrdering Facility: [facility] Address: [address] [place] [address] Performed By: #### 5 7021-8 ####[facility] LABCLIA [id number] [place] [address] [place] Erythrocyte distribution width (RBC) [Ratio] 14.6 % Normal 11.5-15.[address] [facility] Comment on above: Order Comment: Speci men Type: BLOOD SPECIMENOrdering Facility: [facility] Address: [address] [place] [address] Performed By: #### 5 7021-8 ####[facility] LABCLIA [id number] [place] [address] [place] Hematocrit (Bld) [Volume fraction] 49.9 % Normal 39.0-51.[address] [facility] Comment on above: Order Comment: Speci men Type: BLOOD SPECIMENOrdering Facility: [facility] Address: [address] [place] [address] Performed By: #### 5 7021-8 ####[facility] LABCLIA [id number] [place] [address] [place] Hemoglobin (Bld) [Mass/Vol] 16.7 g/dL Normal 13.0-17.[address] [facility] Comment on above: Order Comment: Speci men Type: BLOOD SPECIMENOrdering Facility: [facility] Address: [address] [place] [address] Performed By: #### 5 7021-8 ####[facility] LABCLIA [id number] [place] [address] [place] Immature granulocytes (Bld) [#/Vol] 0.17 10*3/uL High <0.[address] [facility] Comment on above: Order Comment: Speci men Type: BLOOD SPECIMENOrdering Facility: [facility] Address: [address] [place] [address] Performed By: #### 5 7021-8 ####[facility] LABCLIA [id number] [place] [address] [place] Immature granulocytes/100 WBC (Bld) 1.8 % Normal [facility] Comment on above: Order Comment: Speci men Type: BLOOD SPECIMENOrdering Facility: [facility] Address: [address] [place] [address] Performed By: #### 5 7021-8 ####[facility] LABCLIA [id number] [place] [address] [place] Lymphocytes (Bld) [#/Vol] 1.57 10*3/uL Normal 1.00-4.[address] [facility] Comment on above: Order Comment: Speci men Type: BLOOD SPECIMENOrdering Facility: [facility] Address: [address] [place] [address] Performed By: #### 5 7021-8 ####[facility] LABCLIA [id number] [address] [place] Lymphocytes/100 WBC (Bld) 16.6 % Normal [facility] Comment on above: Order Comment: Speci men Type: BLOOD SPECIMENOrdering Facility: [facility] Address: [address] [place] [address] Performed By: #### 5 7021-8 ####[facility] LABCLIA [id number] [place] [address] [place] MCH (RBC) [Entitic mass] 30.8 pg Normal 26.0-34.[address] [facility] Comment on above: Order Comment: Speci men Type: BLOOD SPECIMENOrdering Facility: [facility] Address: [address] [place] [address] Performed By: #### 5 7021-8 ####[facility] LABCLIA [id number] [place] [address] [place] MCHC (RBC) [Mass/Vol] 33.5 g/dL Normal 30.5-36.[address] [facility] Comment on above: Order Comment: Speci men Type: BLOOD SPECIMENOrdering Facility: [facility] Address: [address] [place] [address] Performed By: #### 5 7021-8 ####[facility] LABIA [id number] [place] [address] [place] MCV (RBC) [Entitic vol] 92.1 fL Normal 80.0-100.[address] [facility] Comment on above: Order Comment: Speci men Type: BLOOD SPECIMENOrdering Facility: [facility] Address: [address] [place] [address] Performed By: #### 5 7021-8 ####[facility] LABCLIA [id number] [place] [address] [place] Monocytes (Bld) [#/Vol] 0.91 10*3/uL High <0.[address] [facility] Comment on above: Order Comment: Speci men Type: BLOOD SPECIMENOrdering Facility: [facility] Address: [address] [place] [address] Performed By: #### 5 7021-8 ####[facility] LABCLIA [id number] [place] [address] [place] Monocytes/100 WBC (Bld) 9.6 % Normal [facility] Comment on above: Order Comment: Speci men Type: BLOOD SPECIMENOrdering Facility: [facility] Address: [address] [place] [address] Performed By: #### 5 7021-8 ####[facility] LABCLIA [id number] [place] [address] [place] Neutrophils (Bld) [#/Vol] 6.40 10*3/uL Normal 1.45-7.[address] [facility] Comment on above: Order Comment: Speci men Type: BLOOD SPECIMENOrdering Facility: [facility] Address: [address] [place] [address] Performed By: #### 5 7021-8 ####[facility] LABCLIA [id number] [place] [address] [place] Neutrophils/100 WBC (Bld) 67.5 % Normal [facility] Comment on above: Order Comment: Speci men Type: BLOOD SPECIMENOrdering Facility: [facility] Address: [address] [place] [address] Performed By: #### 5 7021-8 ####[facility] LABCLIA [id number] [place] [address] [place] Nucleated RBC (Bld) [#/Vol] 10*3/uL Normal <0.[address] [facility] Comment on above: Order Comment: Speci men Type: BLOOD SPECIMENOrdering Facility: [facility] Address: [address] [place] [address] Performed By: #### 5 7021-8 ####[facility] LABCLIA [id number] [place] [address] [place] Nucleated RBC/100 WBC (Bld) [Ratio] 0.0 /100 WBC Normal [facility] Comment on above: Order Comment: Speci men Type: BLOOD SPECIMENOrdering Facility: [facility] Address: [address] [place] [address] Performed By: #### 5 7021-8 ####[facility] LABCLIA [id number] [place] [address] [place] Platelet mean volume (Bld) [Entitic vol] 10.5 fL Normal 9.0-12.[address] [facility] Comment on above: Order Comment: Speci men Type: BLOOD SPECIMENOrdering Facility: [facility] Address: [address] [place] [address] Performed By: #### 5 7021-8 ####[facility] LABCLIA [id number] [place] [address] [place] Platelets (Bld) [#/Vol] 249 10*3/uL Normal 150-[address] [facility] Comment on above: Order Comment: Speci men Type: BLOOD SPECIMENOrdering Facility: [facility] Address: [address] [place] [address] Performed By: #### 5 7021-8 ####[facility] LABCLIA [id number] [place] [address] [place] RBC (Bld) [#/Vol] 5.42 10*6/uL Normal 4.20-6.00 [facility] Comment on above: Order Comment: Speci men Type: BLOOD SPECIMENOrdering Facility: [facility] Address: [address] [place] [address] Performed By: #### 5 7021-8 ####[facility] LABCLIA [id number] [place] [address] [place] WBC (Bld) [#/Vol] 9.48 10*3/uL Normal 3.70-11.00 [facility] Comment on above: Order Comment: Speci men Type: BLOOD SPECIMENOrdering Facility: [facility] Address: [address] [place] [address] Performed By: #### 5 7021-8 ####[facility] LABCLIA [id number] [address] [address] [place] [facility] Comprehensive metabolic 2000 panelon 11-04-2023 Albumin [Mass/Vol] 4.1 g/dL Normal 3.9-4.9 [facility] Comment on above: Order Comment: Speci men Type: BLOOD SPECIMENOrdering Facility: [facility] Address: [address] [place], [place] [address] Performed By: #### 2 4323-8, 2131-10 ####[facility] LABCLIA [id number] [place] [address] [place] ALP [Catalytic activity/Vol] 90 U/L Normal 38-[address] [facility] Comment on above: Order Comment: Speci men Type: BLOOD SPECIMENOrdering Facility: [facility] Address: [address] [place] [address] Performed By: #### 2 4323-8, 2131-10 ####[facility] LABCLIA [id number] [place] [address] [place] ALT [Catalytic activity/Vol] 23 U/L Normal 10-[address] [facility] Comment on above: Order Comment: Speci men Type: BLOOD SPECIMENOrdering Facility: [facility] Address: [address] [place] [address] Performed By: #### 2 4323-8, 2131-10 ####[facility] LABCLIA [id number] [place] [address] [place] Anion gap [Moles/Vol] 9 mmol/L Normal 8-[address] [facility] Comment on above: Order Comment: Speci men Type: BLOOD SPECIMENOrdering Facility: [facility] Address: [address] [place] [address] Performed By: #### 2 4322-09, 2131-10 ####[facility] LABCLIA [id number] [address] [address] [place] AST [Catalytic activity/Vol] 30 U/L Normal 14-[address] [facility] Comment on above: Order Comment: Speci men Type: BLOOD SPECIMENOrdering Facility: [facility] Address: [address] [place], [place] [address] Performed By: #### 2 4322-09, 2131-10 ####[facility] LABCLIA [id number] [place] [address] [place] Bilirubin [Mass/Vol] 1.0 mg/dL Normal 0.2-1.[address] [facility] Comment on above: Order Comment: Speci men Type: BLOOD SPECIMENOrdering Facility: [facility] Address: [address] [place], [place] [address] Performed By: #### 2 4322-09, 2131-10 ####[facility] LABCLIA [id number] [place] [address] [place] Calcium [Mass/Vol] 10.5 mg/dL High 8.5-10.2 [facility] Comment on above: Order Comment: Speci men Type: BLOOD SPECIMENOrdering Facility: [facility] Address: [address] [place], [place] [address] Performed By: #### 2 4322-09, 2131-10 ####[facility] LABCLIA [id number] [place] [address] [place] Chloride [Moles/Vol] 101 mmol/L Normal 98-[address] [facility] Comment on above: Order Comment: Speci men Type: BLOOD SPECIMENOrdering Facility: [facility] Address: [address] [place] [id number] Performed By: #### 2 4322-09, 2131-10 ####[facility] LABCLIA [id number] [place] [address] [place] CO2 [Moles/Vol] 29 mmol/L Normal 22-[address] [facility] Comment on above: Order Comment: Jayson moffett Type: BLOOD SPECIMENOrdering Facility: [facility] Address: [address] [place] [address] Performed By: #### 2 43204-28, 2131-10 ####[facility] LABCLIA [id number] [place] [address] [place] Creatinine [Mass/Vol] 1.49 mg/dL High 0.73-1.[address] [facility] Comment on above: Order Comment: Simoni men Type: BLOOD SPECIMENOrdering Facility: [facility] Address: [address] [place] [address] Performed By: #### 2 43204-28, 2131-10 ####[facility] LABCLIA [id number] [place] [address] [place] Creatinine and Glomerular filtration rate.predicted panel (S/P/Bld) 45 mL/min/1.73m??? Low >=[address] [facility] Comment on above: Order Comment: Jayson moffett Type: BLOOD SPECIMENOrdering Facility: [facility] Address: [address] [place] [address] Result Comment: Yani mated Glomerular Filtration Rate [...] reflect actual GFR. Performed By: #### 2 4322-09, 2131-10 ####[facility] LABCLIA [id number] [place] [address] [place] Glucose [Mass/Vol] 119 mg/dL High 74-99 [facility] Comment on above: Order Comment: Simoni men Type: BLOOD SPECIMENOrdering Facility: [facility] Address: [address] [place] [id number] Result Comment: The [place] Diabetes Association (ADA) provides guidance for cutoff [...] Standards of Medical Care in Diabetes 2016, [place] [employer]. Diabetes Care. 2016.39(Suppl 1). Performed By: #### 2 4322-09, 2131-10 ####[facility] LABCLIA [id number] [place] [address] [place] Potassium [Moles/Vol] 4.8 mmol/L Normal 3.7-5.[address] [facility] Comment on above: Order Comment: Speci men Type: BLOOD SPECIMENOrdering Facility: [facility] Address: [address] [place] [address] Performed By: #### 2 4322-09, 2131-10 ####[facility] LABIA [id number] [place] [address] [place] Protein [Mass/Vol] 6.9 g/dL Normal 6.3-8.0 [facility] Comment on above: Order Comment: Speci men Type: BLOOD SPECIMENOrdering Facility: [facility] Address: [address] [place] [address] Performed By: #### 2 4322-09, 2131-10 ####[facility] LABIA [id number] [place] [address] [place] Sodium [Moles/Vol] 139 mmol/L Normal 136-144 [facility] Comment on above: Order Comment: Speci men Type: BLOOD SPECIMENOrdering Facility: [facility] Address: [address] [place] [address] Performed By: #### 2 4323-8, 2131-10 ####[facility] LABCLIA [id number] [place] [address] [place] Urea nitrogen [Mass/Vol] 20 mg/dL Normal 9-[address] [facility] Comment on above: Order Comment: Simoni men Type: BLOOD SPECIMENOrdering Facility: [facility] Address: [address] [place] [address] Performed By: #### 2 4323-8, 2131-10 ####[facility] LABCLIA [id number] [place] [address] [place] HbA1c (Bld)on 11-04-2023 Average glucose Estimated from glycated hemoglobin (Bld) [Mass/Vol] 140 mg/dL Normal [facility] Comment on above: Order Comment: Jayson moffett Type: BLOOD SPECIMENOrdering Facility: [facility] Address: [address] [place] [address] Result Comment: eAG: (Estimated average glucose) is a calculated value from HgbA1c and is financial sales representative of the average blood glucose level in the last 2-3 month period. Performed By: #### 5 5454-3 ####[facility] LABCLIA [id number] [place] [address] [place] HbA1c (Bld) [Mass fraction] 6.5 % High 4.3-5.[address] [facility] Comment on above: Order Comment: Jayson men Type: BLOOD SPECIMENOrdering Facility: [facility] Address: [address] [place] [address] Result Comment: [place] Diabetes Association guidelines indicate that patients with HgbA1c in the range 5.7-6.4% are at increased risk for development of diabetes, and intervention by lifestyle modification may be beneficial. HgbA1c greater or equal to 6.5% is considered diagnostic of diabetes. Performed By: #### 5 5454-3 ####[facility] LABCLIA [id number] [place] [address] [place] Lipid 1996 panelon 4 Cholesterol [Mass/Vol] 139 mg/dL Normal <[address] [facility] Comment on above: Order Comment: Speci men Type: BLOOD SPECIMENOrdering Facility: [facility] Address: [address] [place] [address] Result Comment: <200 mg/dL, Desirable 200-239 mg/dL, Borderline high >239 mg/dL, High Performed By: #### 2 4331-1, 3023-7, , 3015-3 ####[facility] LABCLIA [id number] [place], [place] [address] [place] Cholesterol in HDL [Mass/Vol] 34 mg/dL Low >[address] [facility] Comment on above: Order Comment: Speci men Type: BLOOD SPECIMENOrdering Facility: [facility] Address: [address] [place] [address] Result Comment: 40-5 9 mg/dL, Acceptable >59 mg/dL, High: Negative risk factor for coronary heart disease <40 mg/dL, Low: Positive risk factor for coronary heart disease Performed By: #### 2 4331-1, 7, , 6-3 ####[facility] LABCLIA [id number] [address] [place] Cholesterol in LDL [Mass/Vol] 84 mg/dL Normal <[address] [facility] Comment on above: Order Comment: Speci men Type: BLOOD SPECIMENOrdering Facility: [facility] Address: [address] [place] [address] Result Comment: <100 mg/dL, Optimal 100-129 mg/dL, Near optimal/above optimal 130-159 mg/dL, Borderline high 160-189 mg/dL, High >189 mg/dL, Very high Secondary prevention optimal LDL Cholesterol levels are recommended to be < 70 mg/dL Performed By: #### 2 4331-1, 3023-7, 25044-2, 6-3 ####[facility] LABCLIA [id number] [address] [place] Cholesterol in LDL/Cholesterol in HDL [Mass ratio] 2.47 {ratio} Normal <2.[address] [facility] Comment on above: Order Comment: Jayson men Type: BLOOD SPECIMENOrdering Facility: [facility] Address: [address] [place] [address] Result Comment: Refe rence: 1. National Cholesterol Education Program ATP III Guideline At-A-Glance Quick Desk Reference: National Heart, Lung, and Blood [place]. National Institutes of Health. 2001: NIH Publication No. 01-3305. 2. An International Atherosclerosis Society position paper: global recommendations for the management of dyslipidemia: executive summary, Atherosclerosis. 2014: 232(2):410-413. Performed By: #### 2 4331-1, 4-7, 30956-5, 6-3 ####[facility] LABCLIA [id number] [place] [address] [place] Cholesterol in VLDL [Mass/Vol] 21 mg/dL Normal <[address] [facility] Comment on above: Order Comment: Simoni men Type: BLOOD SPECIMENOrdering Facility: [facility] Address: [address] [place] [address] Performed By: #### 2 4331-1, 302-7, 34862-7, 6-3 ####[facility] LABCLIA [id number] [place] [address] [place] Cholesterol non HDL [Mass/Vol] 105 mg/dL Normal <[address] [facility] Comment on above: Order Comment: Simoni men Type: BLOOD SPECIMENOrdering Facility: [facility] Address: [address] [place] [address] Result Comment: <130 mg/dL, Optimal 130-159 mg/dL, Near optimal/above optimal 160-189 mg/dL, Borderline high 190-219 mg/dL, High >219 mg/dL, Very high Secondary prevention optimal non HDL Cholesterol levels are recommended to be <100 mg/dL Performed By: #### 2 4331-1, 302-7, , 3015-04 ####[facility] LABCLIA [id number] [address] [address] [place] Cholesterol.total/C holesterol in HDL [Mass ratio] 4.09 {ratio} Normal <5.[address] [facility] Comment on above: Order Comment: Speci men Type: BLOOD SPECIMENOrdering Facility: [facility] Address: [address] [place] [address] Performed By: #### 2 4331-1, 3023-08, , 3015-04 ####[facility] LABIA [id number] [place] [address] [place] FASTING TIME 12 hrs Normal [facility] Comment on above: Order Comment: Speci men Type: BLOOD SPECIMENOrdering Facility: [facility] Address: [address] [place] [address] Performed By: #### 2 4331-1, 3023-08, , 3015-04 ####[facility] LABIA [id number] [place] [address] [place] Triglyceride [Mass/Vol] 107 mg/dL Normal <[address] [facility] Comment on above: Order Comment: Speci men Type: BLOOD SPECIMENOrdering Facility: [facility] Address: [address] [place] [address] Result Comment: <150 mg/dL, Normal 150-199 mg/dL, Borderline high 200-499 mg/dL, High >499 mg/dL, Very high Performed By: #### 2 4331-1, 7, , 3015-04 ####[facility] LABIA [id number] [address] [address] [place] Magnesium SerPl-mCncon 11-03 Magnesium [Mass/Vol] 1.9 mg/dL Normal 1.7-2.[address] [facility] Comment on above: Order Comment: Speci men Type: BLOOD SPECIMENOrdering Facility: [facility] Address: [address] [place] [address] Performed By: #### 2 4331-1, 3023-7, , 3015-3 ####[facility] LABCLIA [id number] [place] [address] [place] PSA/PROSTATE SPECIFIC ANTIGE N SCREENINGon 11-04-2023 Prostate specific Ag [Mass/Vol] 0.32 ng/mL Normal <2.[address] [facility] Comment on above: Order Comment: Speci men Type: BLOOD SPECIMENOrdering Facility: [facility] Address: [address] [place] [address] Result Comment: Tota l PSA test methodology used is the Electrochemiluminescence Immunoassay by [employer]. Total PSA values by differing methodologies cannot be interchanged. Performed By: #### P SAS1 ####[facility] LABCLIA [id number] [place] [address] [place] T4 Free SerPl-mCncon 024 Free T4 [Mass/Vol] 1.2 ng/dL Normal 0.9-1.7 [facility] Comment on above: Order Comment: Speci men Type: BLOOD SPECIMENOrdering Facility: [facility] Address: [address] [place] [address] Performed By: #### 2 4331-1, 7, , 3 ####[facility] LABCLIA [id number] [place] [address] [place] TSH SerPl-aCncon 11-04-2023 TSH Qn 3.930 m[IU]/L Normal 0.270-4.[address] [facility] Comment on above: Order Comment: Speci men Type: BLOOD SPECIMENOrdering Facility: [facility] Address: [address] [place] [address] Performed By: #### 2 4331-1, 7, , 3015-3 ####[facility] LABCLIA [id number] [place] [address] [place] Vit B12 [facility] 11-03- 024 Cobalamin (Vitamin B12) [Mass/Vol] 520 pg/mL Normal 232-[address] [facility] Comment on above: Order Comment: Speci men Type: BLOOD SPECIMENOrdering Facility: [facility] Address: [address] [place] [address] Performed By: #### 2 4323-8, 2132-9 ####[facility] LABCLIA [id number] [place] [address] [place] CNPNon 11-02-2023 CNPN Telephone (FAMWS) JUAN JOSE FOSTER ([id number]) 1935 M Date Time Provider Department 11/02/23 [facility] visit today, we recorded the following information about you: Dipak Aguilar DO 11/02/2023 11:41 AM Signed Labs ordered Dipak Aguilar DO Allergies As of Date: 11/02/2023 Noted Allergy Reaction CYPRESS 09/22/2010 14 - Other: See Comments Comments: sneezing,runny nose CEDAR 08/17/2010 3 - Cough Comments: also [place] with same reaction MOLD 08/17/2010 3 - Cough Date Reviewed: 09/12/2023 Reviewed by: Camille Castellanos, LUPE - Fully Assessed Primary Visit Diagnosis:Fatigue, unspecified type [R53.83] Other Visit Diagnoses:Stage 3a chronic kidney 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] Atrial fibrillation, unspecified type (HCC) [I48.91] Vitamin D deficiency [E55.9] BPH with obstruction/lower urinary tract symptoms [N40.1, N13.8] Hyperglycemia [R73.9] Dyslipidemia [E78.5] Screening for prostate cancer [Z12.5] Order(s):COMPLETE BLOOD COUNT AND DIFFERENTIAL [SQCBCDIF] Order #: [id number] FUTURE THYROID STIMULATING HORMONE [SQTSH] Order #: [id number] FUTURE T4 FREE/FREE THYROXINE [SQFT4] Order #: [id number] FUTURE LIPID PANEL BASIC [SQLIPB] Order #: [id number] FUTURE HEMOGLOBIN A1C [DUYIL5I] Order #: [id number] FUTURE COMPREHENSIVE METABOLIC PANEL [SQCMP] Order #: [id number] FUTURE IRON AND TIBC [SQIRON] Order #: [id number] FUTURE VITAMIN D 25 HYDROXY [SQVITD] Order #: [id number] FUTURE VITAMIN B12 [SQB12] Order #: [id number] FUTURE MAGNESIUM [SQMG1] Order #: [id number] FUTURE PSA/PROSTATE SPECIFIC ANTIGEN SCREENING [SQPSAS1] Order #: [id number] FUTURE Prescriptions as of 11/03/2023 - apixaban [...] JUDITH GARCIA on 11/03/[address] [facility] CNOVon 06-24-2023 CNOV Office Visit (AKURFL ) JUAN JOSE FOSTER ([id number]) 1935 M Date Time Provider Department 06/24/23 8:30 AM SHARATH ISSA During your visit today, we recorded the following information about you: Pulse Height 72/minute 1.829 m Sharath Issa MD 06/27/2023 8:06 AM Signed ESTABLISHED PATIENT OFFICE VISIT PATIENT INFO: Juan Jose Foster 88 year old [facility] 06/24/2023 CC: cysto uses coude catheter and [...] hung up He is going back to [place] in a few weeks and he knows to reconnect with urology there if he has problems Could always consult with Dr. Summers or Dr. Yamile Trujillo at [facility] who are stricture specialists and he [...] also Discussed options and will take to [facility] tomorrow for cystoscopy and urethral [...] shortness of breath We will schedule at [facility] Bladder scan/postvoid residual-80 cc approximate 06/29/2022 CC: marcy Saw me last noted below and had laser TURP Did well afterwards but then having more trouble so underwent TURP in December 2021 in [place] and did well but over the last month slower stream and nocturia 3-4 and moreUrgency Residual urine 79 cc Not on alpha blockers and so we will add Uroxatro (more content not included)... Normal [facility] UA DIP, URINE (POC)on 2023 BILIRUBIN UA (POCT) Negative Negative [facility] CLARITY UA (POCT) Clear [facility] COLOR UA (POCT) Yellow [facility] GLUCOSE UA (POCT) Negative Negative mg/dL [facility] Hemoglobin Ql (U) Large Abnormal Negative [facility] Interpretation and review of laboratory results Abnormal [facility] KETONE UA (POCT) Negative Negative mg/dL [facility] LEUKOCYTES UA (POCT) Small Abnormal Negative [facility] NITRITE UA (POCT) Negative Negative [facility] PH UA (POCT) 6.0 4.5 - 8.0 [facility] Protein Ql (U) Negative Negative mg/dL [facility] SPECIFIC GRAVITY UA (POCT) 1.025 1.005 - 1.030 [facility] UROBILINOGEN UA (POCT) 1.0 Normal E.U./dL [facility] Location:[facility], [address] [place] [address], [address] [place] [address] POINT OF CARE [facility] UA DIP, URINE (POC)on 2022 BILIRUBIN UA (POCT) Negative Negative [facility] CLARITY UA (POCT) Clear [facility] COLOR UA (POCT) Yellow [facility] GLUCOSE UA (POCT) Negative Negative mg/dL [facility] Hemoglobin Ql (U) Negative Negative [facility] KETONE UA (POCT) Negative Negative mg/dL [facility] LEUKOCYTES UA (POCT) Negative Negative [facility] NITRITE UA (POCT) Negative Negative [facility] PH UA (POCT) 6.5 4.5 - 8.0 [facility] Protein Ql (U) Negative Negative mg/dL [facility] SPECIFIC GRAVITY UA (POCT) 1.020 1.005 - 1.030 [facility] UROBILINOGEN UA (POCT) 0.2 E.U./dL Normal E.U./dL [facility] UA DIP, URINE (POC)on 2022 BILIRUBIN UA (POCT) Negative Negative [facility] CLARITY UA (POCT) Clear [facility] COLOR UA (POCT) Yellow [facility] GLUCOSE UA (POCT) Negative Negative mg/dL [facility] Hemoglobin Ql (U) Trace-intact Abnormal Negative [facility] KETONE UA (POCT) Negative Negative mg/dL [facility] LEUKOCYTES UA (POCT) Negative Negative [facility] NITRITE UA (POCT) Negative [facility] ([facility]) 6.5 4.5 - 8.0 [facility] Protein Ql (U) Trace Abnormal Negative mg/dL [facility] SPECIFIC GRAVITY UA (POCT) >=1.030 1.005 - 1.030 [facility] UROBILINOGEN UA (POCT) 1.0 E.U./dL Normal E.U./dL [facility] UA DIP, URINE (POC)on 2022 BILIRUBIN UA (POCT) Negative Negative [facility] CLARITY UA (POCT) Clear [facility] COLOR UA (POCT) Yellow [facility] GLUCOSE UA (POCT) Negative Negative mg/dL [facility] HEMOGLOBIN/BLOOD UA (POCT) Negative Negative [facility] KETONE UA (POCT) Negative Negative mg/dL [facility] LEUKOCYTES UA (POCT) Trace Abnormal Negative [facility] NITRITE UA (POCT) Negative Negative [facility] PH UA (POCT) 5.5 4.5 - 8.0 [facility] Protein Ql (U) Negative Negative mg/dL [facility] SPECIFIC GRAVITY UA (POCT) 1.020 1.005 - 1.030 [facility] UROBILINOGEN UA (POCT) 0.2 E.U./dL Normal E.U./dL [facility] No Panel Informationon 10-13 Radiology Study observation (narrative) [facility] XR Chest PA and Lateralon IMPRESSION: Linear indeterminate density at both lung bases. Likely atelectasis or fibrosis. No new significant collapse or consolidation Snubber: PSCB Transcribe Date/Time: Oct 13 2020 10:37A Dictated by : HENRY PEÑA MD This examination was interpreted and the report reviewed and electronically signed by: HENRY PEÑA MD on Oct 13 2020 10:40AM [facility] DIVISION OF RADIOLOGY * * *Final Report* [...] soft tissues: Unremarkable. DIVISION OF RADIOLOGY Provider, [facility] - 10/13/2020 * * *Final Report* * [...] fibrosis. No new significant collapse or consolidation Snubber: [facility] Transcribe Date/Time: Oct 13 2020 10:37A Dictated by : HENRY PEÑA MD This examination was interpreted and the report reviewed and electronically signed by: HENRY PEÑA MD on Oct 13 2020 10:40AM EST [facility] XR Knee - right 4 Viewson IMPRESSION: Degenerative changes as described. Snubber: BLANK Transcribe Date/Time: Oct 13 2020 10:38A Dictated by : JAVAN LOUIS MD This examination was interpreted and the report reviewed and electronically signed by: JAVAN LOUIS MD on Oct 13 2020 10:39AM EST DIVISION OF RADIOLOGY * * *Final Report* [...] joint space narrowing. DIVISION OF RADIOLOGY Provider, [facility] - 10/13/2020 * * *Final Report* * [...] narrowing. IMPRESSION IMPRESSION: Degenerative changes as described. Snubber: PSCMono Transcribe Date/Time: Oct 13 2020 10:38A Dictated by : JAVAN LOUIS MD This examination was interpreted and the report reviewed and electronically signed by: JAVAN LOUIS MD on Oct 13 2020 10:39AM EST [facility] XR Knee - right 4 ViewsOrder ed By: Ccf Provider on 10-13-2020 [facility] US MSR POST-VOID RESID URINE [facility] Vital Signs Date Time Vital Sign Value Performing Clinician Facility 10-14-2024 08:45-0400 Body temperature 97.6 [degF] Dr. Dipak Aguilar DO Work Phone: 4(279)316-650275 [place] [address] 10-14-2024 08:45-0400 Diastolic blood pressure 87 mm[Hg] Dr. Dipak Aguilar DO Work Phone: 2(102)957-640475 [place] [address] 10-14-2024 08:45-0400 Heart rate 71 /min Dr. Dipak Aguilar DO Work Phone: 1(220)536-712475 [place] [address] 10-14-2024 08:45-0400 Respiratory rate 17 /min Dr. Dipak Aguilar DO Work Phone: 9(145)303-015175 [place] [address] 10-14-2024 08:45-0400 SaO2% (BldA) [Mass fraction] 97 % Dr. Dipak Aguilra DO Work Phone: 1(340)129-066075 [place] [address] 10-14-2024 08:45-0400 Systolic blood pressure 133 mm[Hg] Dr. Dipak Aguilar DO Work Phone: 2(376)386-651175 [place] [address] 10-14-2024 07:29-0400 Body height 182.[address] Dipak Aguilar DO Work Phone: 7(591)003-759475 [place] [address] 10-14-2024 07:29-0400 Body mass index (BMI) [Ratio] 27.1 kg/m2 Dr. Dipak Aguilar DO Work Phone: 6(633)802-165975 [place] [address] 10-14-2024 07:29-0400 Body weight 90.[address] Dipak Aguilar DO Work Phone: [facility] 09-21-2024 08:28-0400 Body mass index (BMI) [Ratio] 27.89 kg/m2 Vikki Haagen CRIMPING PRESS OPERATOR.PRIMER CHARGING TOOL SETTER Work Phone: [facility] 09-21-2024 08:28-0400 Body weight 90.72 kg Vikki Haagen CRIMPING PRESS OPERATOR.PRIMER CHARGING TOOL SETTER Work Phone: [facility] 09-21-2024 08:28-0400 Diastolic blood pressure 70 mm[Hg] Vikki Haagen CRIMPING PRESS OPERATOR.PRIMER CHARGING TOOL SETTER Work Phone: [facility] 09-21-2024 08:28-0400 Heart rate 101 /min Vikki Haagen CRIMPING PRESS OPERATOR.PRIMER CHARGING TOOL SETTER Work Phone: [facility] 09-21-2024 08:28-0400 Respiratory rate 16 /min Vikki Haagen CRIMPING PRESS OPERATOR.PRIMER CHARGING TOOL SETTER Work Phone: [facility] 09-21-2024 08:28-0400 Systolic blood pressure 122 mm[Hg] Vikki Haagen CRIMPING PRESS OPERATOR.PRIMER CHARGING TOOL SETTER Work Phone: [facility] 09-17-2024 08:21-0400 Body mass index (BMI) [Ratio] 27.95 kg/m2 Vikki Haagen CRIMPING PRESS OPERATOR.PRIMER CHARGING TOOL SETTER Work Phone: [facility] 09-17-2024 08:21-0400 Body weight 90.9 kg Vikki Haagen CRIMPING PRESS OPERATOR.PRIMER CHARGING TOOL SETTER Work Phone: [facility] 09-17-2024 08:21-0400 Diastolic blood pressure 70 mm[Hg] Vikki Haagen CRIMPING PRESS OPERATOR.PRIMER CHARGING TOOL SETTER Work Phone: [facility] 09-17-2024 08:21-0400 Heart rate 101 /min Vikki Haagen CRIMPING PRESS OPERATOR.PRIMER CHARGING TOOL SETTER Work Phone: [facility] 09-17-2024 08:21-0400 Respiratory rate 16 /min Vikki Haagen CRIMPING PRESS OPERATOR.PRIMER CHARGING TOOL SETTER Work Phone: [facility] 09-17-2024 08:21-0400 SaO2% (BldA) [Mass fraction] 98 % Vikki Worley CRIMPING PRESS OPERATOR.PRIMER CHARGING TOOL SETTER Work Phone: [facility] 09-17-2024 08:21-0400 Systolic blood pressure 122 mm[Hg] Vikki Worley CRIMPING PRESS OPERATOR.PRIMER CHARGING TOOL SETTER Work Phone: [facility] 09-11-2024 12:56-0400 Body temperature 97.4 [degF] Dr. Dipak Aguilar DO Work Phone: [facility] 09-11-2024 12:56-0400 Diastolic blood pressure 123 mm[Hg] Dr. Dipak Aguilar DO Work Phone: 3(595)628-824275 [place] [address] 09-11-2024 12:56-0400 Heart rate 78 /min Dr. Dipak Aguilar DO Work Phone: 5(095)979-366507 [address] 09-11-2024 12:56-0400 Respiratory rate 16 /min Dr. Dipak Aguilar DO Work Phone: 9(916)935-617075 [place] [address] 09-11-2024 12:56-0400 SaO2% (BldA) [Mass fraction] 100 % Dr. Dipak Aguilar DO Work Phone: 3(755)299-736475 [place] [address] 09-11-2024 12:56-0400 Systolic blood pressure 190 mm[Hg] Dr. Dipak Aguilar DO Work Phone: 0(870)589-657875 [place] [address] 09-11-2024 10:13-0400 Body height 185.[address] Dipak Aguilar DO Work Phone: 1(523)798-818075 [place] [address] 09-11-2024 10:13-0400 Body mass index (BMI) [Ratio] 26.2 kg/m2 Dr. Dipak Aguilar DO Work Phone: 3(736)039-765175 [place] [address] 09-11-2024 10:13-0400 Body weight 90.[address] Dipak Aguilar DO Work Phone: 5(944)405-619875 [place] [address] 09-10-2024 11:58-0400 Diastolic blood pressure 88 mm[Hg] Jamal Lorenzo Jr., MD Work Phone: [facility] Comment on above: manual recheck 09-10-2024 11:58-0400 Systolic blood pressure 136 mm[Hg] Jamal Lorenzo Jr., MD Work Phone: [facility] Comment on above: manual recheck 09-10-2024 11:19-0400 Body mass index (BMI) [Ratio] 27.48 kg/m2 Jamal Lorenzo Jr., MD Work Phone: [facility] 09-10-2024 11:19-0400 Body weight 89.36 kg Jamal Lorenzo Jr., MD Work Phone: [facility] 09-10-2024 11:19-0400 Heart rate 83 /min Jamal Lorenzo Jr., MD Work Phone: [facility] 09-10-2024 11:19-0400 Respiratory rate 16 /min Jamal Lorenzo Jr., MD Work Phone: [facility] 09-10-2024 11:19-0400 SaO2% (BldA) [Mass fraction] 97 % Jamal Lorenzo Jr., MD Work Phone: [facility] 09-05-2024 11:55-0400 Body mass index (BMI) [Ratio] 27.62 kg/m2 Dipak Aguilar DO Work Phone: [facility] 09-05-2024 11:55-0400 Body temperature 97 [degF] Dipak Aguilar DO Work Phone: [facility] 09-05-2024 11:55-0400 Body weight 89.81 kg Dipak Aguilar DO Work Phone: [facility] 09-05-2024 11:55-0400 Diastolic blood pressure 82 mm[Hg] Dipak Aguilar DO Work Phone: [facility] 09-05-2024 11:55-0400 Heart rate 80 /min Dipak Aguilar DO Work Phone: [facility] 09-05-2024 11:55-0400 Respiratory rate 20 /min Dipak Aguilar DO Work Phone: [facility] 09-05-2024 11:55-0400 Systolic blood pressure 128 mm[Hg] Dipak Jeff Work Phone: [facility] 07-02-2024 15:27-0400 Body height 180.3 cm Analisa Nicole MD Work Phone: [facility] 07-02-2024 15:27-0400 Body mass index (BMI) [Ratio] 28.4 kg/m2 Analisa Nicole MD Work Phone: [facility] 07-02-2024 15:27-0400 Body weight 92.35 kg Analisa Nicole MD Work Phone: [facility] 07-02-2024 15:27-0400 Diastolic blood pressure 70 mm[Hg] Analisa Nicole MD Work Phone: [facility] 07-02-2024 15:27-0400 Heart rate 90 /min Analisa Niocle MD Work Phone: [facility] 07-02-2024 15:27-0400 Respiratory rate 12 /min Analisa Nicole MD Work Phone: [facility] 07-02-2024 15:27-0400 SaO2% (BldA) [Mass fraction] 96 % Analisa Nicole MD Work Phone: [facility] 07-02-2024 15:27-0400 Systolic blood pressure 128 mm[Hg] Analisa Nicole MD Work Phone: [facility] 06-28-2024 13:31-0400 Body mass index (BMI) [Ratio] 28.19 kg/m2 Judith Garcia CRIMPING PRESS OPERATOR.PRIMER CHARGING TOOL SETTER Work Phone: [facility] 06-28-2024 13:31-0400 Body weight 93.8 kg Judith Garcia CRIMPING PRESS OPERATOR.PRIMER CHARGING TOOL SETTER Work Phone: [facility] 06-28-2024 13:31-0400 Diastolic blood pressure 88 mm[Hg] Judith Garcia CRIMPING PRESS OPERATOR.PRIMER CHARGING TOOL SETTER Work Phone: [facility] 06-28-2024 13:31-0400 Heart rate 76 /min Judith Jose CRIMPING PRESS OPERATOR.PRIMER CHARGING TOOL SETTER Work Phone: [facility] 06-28-2024 13:31-0400 SaO2% (BldA) [Mass fraction] 95 % Judith Jose CRIMPING PRESS OPERATOR.PRIMER CHARGING TOOL SETTER Work Phone: [facility] 06-28-2024 13:31-0400 Systolic blood pressure 144 mm[Hg] Judith Jose CRIMPING PRESS OPERATOR.PRIMER CHARGING TOOL SETTER Work Phone: [facility] 05-30-2024 14:41-0400 Body mass index (BMI) [Ratio] 27.68 kg/m2 Judith Jose CRIMPING PRESS OPERATOR.PRIMER CHARGING TOOL SETTER Work Phone: [facility] 05-30-2024 14:41-0400 Body weight 92.08 kg Judith Jose CRIMPING PRESS OPERATOR.PRIMER CHARGING TOOL SETTER Work Phone: [facility] 05-30-2024 14:41-0400 Diastolic blood pressure 78 mm[Hg] Judith Jose CRIMPING PRESS OPERATOR.PRIMER CHARGING TOOL SETTER Work Phone: [facility] 05-30-2024 14:41-0400 Heart rate 78 /min Judith Jose CRIMPING PRESS OPERATOR.PRIMER CHARGING TOOL SETTER Work Phone: [facility] 05-30-2024 14:41-0400 SaO2% (BldA) [Mass fraction] 94 % Judith Jose CRIMPING PRESS OPERATOR.PRIMER CHARGING TOOL SETTER Work Phone: [facility] 05-30-2024 14:41-0400 Systolic blood pressure 110 mm[Hg] Judith Jose CRIMPING PRESS OPERATOR.PRIMER CHARGING TOOL SETTER Work Phone: [facility] 05-16-2024 13:15-0400 Body mass index (BMI) [Ratio] 28.96 kg/m2 Radha Berman CRIMPING PRESS OPERATOR.PRIMER CHARGING TOOL SETTER Work Phone: [facility] 05-16-2024 13:15-0400 Body weight 96.34 kg Radha Berman CRIMPING PRESS OPERATOR.PRIMER CHARGING TOOL SETTER Work Phone: [facility] 05-16-2024 13:15-0400 Diastolic blood pressure 68 mm[Hg] Radha Berman CRIMPING PRESS OPERATOR.PRIMER CHARGING TOOL SETTER Work Phone: [facility] 05-16-2024 13:15-0400 Heart rate 87 /min Radha Berman CRIMPING PRESS OPERATOR.PRIMER CHARGING TOOL SETTER Work Phone: [facility] 05-16-2024 13:15-0400 Respiratory rate 16 /min Radha Berman CRIMPING PRESS OPERATOR.PRIMER CHARGING TOOL SETTER Work Phone: [facility] 05-16-2024 13:15-0400 SaO2% (BldA) [Mass fraction] 97 % Radha Bermna CRIMPING PRESS OPERATOR.PRIMER CHARGING TOOL SETTER Work Phone: [facility] 05-16-2024 13:15-0400 Systolic blood pressure 130 mm[Hg] Radha Berman CRIMPING PRESS OPERATOR.PRIMER CHARGING TOOL SETTER Work Phone: [facility] 12-05-2023 13:31-0400 Body height 182.4 cm Pulm Wstr Work Phone: [facility] 12-05-2023 13:31-0400 Body mass index (BMI) [Ratio] 27.54 kg/m2 Pulm Wstr Work Phone: [facility] 12-05-2023 13:31-0400 Body weight 91.63 kg Pulm Wstr Work Phone: [facility] 12-05-2023 13:31-0400 Heart rate 87 /min Pulm Wstr Work Phone: [facility] 12-05-2023 13:31-0400 Respiratory rate 16 /min Pulm Wstr Work Phone: [facility] 12-05-2023 13:31-0400 SaO2% (BldA) [Mass fraction] 97 % Pulm Wstr Work Phone: [facility] 11-29-2023 07:05-0400 Body mass index (BMI) [Ratio] 27.53 kg/m2 Judith Garcia CRIMPING PRESS OPERATOR.PRIMER CHARGING TOOL SETTER Work Phone: [facility] 11-29-2023 07:05-0400 Body weight 92.08 kg Judith Jose CRIMPING PRESS OPERATOR.PRIMER CHARGING TOOL SETTER Work Phone: [facility] 11-29-2023 07:05-0400 Diastolic blood pressure 78 mm[Hg] Judith Jose CRIMPING PRESS OPERATOR.PRIMER CHARGING TOOL SETTER Work Phone: [facility] 11-29-2023 07:05-0400 Heart rate 78 /min Judith Jose CRIMPING PRESS OPERATOR.PRIMER CHARGING TOOL SETTER Work Phone: [facility] 11-29-2023 07:05-0400 Respiratory rate 16 /min Judith Jose CRIMPING PRESS OPERATOR.PRIMER CHARGING TOOL SETTER Work Phone: [facility] 11-29-2023 07:05-0400 SaO2% (BldA) [Mass fraction] 98 % Judith Jose CRIMPING PRESS OPERATOR.PRIMER CHARGING TOOL SETTER Work Phone: [facility] 11-29-2023 07:05-0400 Systolic blood pressure 126 mm[Hg] Judith Jose CRIMPING PRESS OPERATOR.PRIMER CHARGING TOOL SETTER Work Phone: [facility] 09-12-2023 10:16-0400 Body height 182.9 cm Analisa Nicole MD Work Phone: [facility] 09-12-2023 10:16-0400 Body mass index (BMI) [Ratio] 27.97 kg/m2 Analisa Nicole MD Work Phone: [facility] 09-12-2023 10:16-0400 Body weight 93.53 kg Analisa Nicole MD Work Phone: [facility] 09-12-2023 10:16-0400 Diastolic blood pressure 99 mm[Hg] Analisa Nicole MD Work Phone: [facility] 09-12-2023 10:16-0400 Heart rate 75 /min Analisa Nicole MD Work Phone: [facility] 09-12-2023 10:16-0400 SaO2% (BldA) [Mass fraction] 94 % Analisa Nicole MD Work Phone: [facility] 09-12-2023 10:16-0400 Systolic blood pressure 145 mm[Hg] Analisa Nicole MD Work Phone: [facility] 06-24-2023 08:19-0400 Body height 182.9 cm Sharath Issa MD Work Phone: [facility] 06-24-2023 08:19-0400 Heart rate 72 /min Sharath Issa MD Work Phone: [facility] 06-24-2023 08:19-0400 SaO2% (BldA) [Mass fraction] 100 % Sharath Issa MD Work Phone: [facility] 10-19-2022 10:09-0400 Body height 185.4 cm Sharath Issa MD Work Phone: [facility] 10-19-2022 10:09-0400 Heart rate 76 /min Sharath Issa MD Work Phone: [facility] 10-19-2022 10:09-0400 SaO2% (BldA) [Mass fraction] 100 % Sharath Issa MD Work Phone: [facility] 10-12-2022 11:40-0400 Diastolic blood pressure 72 mm[Hg] Beata Watkins APRN.PRIMER CHARGING TOOL SETTER Work Phone: [facility] 10-12-2022 11:40-0400 Heart rate 77 /min Beata Watkins APRN.PRIMER CHARGING TOOL SETTER Work Phone: [facility] 10-12-2022 11:40-0400 SaO2% (BldA) [Mass fraction] 98 % Beata Watkins APRN.PRIMER CHARGING TOOL SETTER Work Phone: [facility] 10-12-2022 11:40-0400 Systolic blood pressure 126 mm[Hg] Beata Watkins APRN.PRIMER CHARGING TOOL SETTER Work Phone: [facility] 08-31-2022 08:21-0400 Body weight 93.44 kg Wes Mcintosh MD Work Phone: [facility] 08-31-2022 08:21-0400 Diastolic blood pressure 70 mm[Hg] Wes Mcintosh MD Work Phone: [facility] 08-31-2022 08:21-0400 Heart rate 74 /min Wes Mcintosh MD Work Phone: [facility] 08-31-2022 08:21-0400 Systolic blood pressure 110 mm[Hg] Wes Mcintosh MD Work Phone: [facility] 08-17-2022 10:19-0400 Body height 185.4 cm Sharath Issa MD Work Phone: [facility] 08-17-2022 10:19-0400 Heart rate 91 /min Sharath Issa MD Work Phone: [facility] 08-17-2022 10:19-0400 SaO2% (BldA) [Mass fraction] 97 % Sharath Issa MD Work Phone: [facility] 07-26-2022 09:23-0400 Body weight 96.16 kg Crystal Pradhan CRIMPING PRESS OPERATOR.PRIMER CHARGING TOOL SETTER Work Phone: [facility] 07-26-2022 09:23-0400 Diastolic blood pressure 84 mm[Hg] Crystal Pradhan CRIMPING PRESS OPERATOR.PRIMER CHARGING TOOL SETTER Work Phone: [facility] 07-26-2022 09:23-0400 Heart rate 74 /min Crystal Pradhan CRIMPING PRESS OPERATOR.PRIMER CHARGING TOOL SETTER Work Phone: [facility] 07-26-2022 09:23-0400 Respiratory rate 14 /min Crystal Pradhan CRIMPING PRESS OPERATOR.PRIMER CHARGING TOOL SETTER Work Phone: [facility] 07-26-2022 09:23-0400 Systolic blood pressure 128 mm[Hg] Crystal Pradhan CRIMPING PRESS OPERATOR.PRIMER CHARGING TOOL SETTER Work Phone: [facility] 07-20-2022 10:12-0400 Body height 185.4 cm Sharath Issa MD Work Phone: [facility] 07-20-2022 10:12-0400 Diastolic blood pressure 90 mm[Hg] Sharath Issa MD Work Phone: [facility] 07-20-2022 10:12-0400 Heart rate 84 /min Sharath Issa MD Work Phone: [facility] 07-20-2022 10:12-0400 Systolic blood pressure 144 mm[Hg] Sharath Issa MD Work Phone: [facility] 07-01-2022 07:12-0400 Body temperature 97.59 [degF] Krislyn Aberegg PA Work Phone: [facility] 07-01-2022 07:12-0400 Body weight 96.8 kg Krislyn Aberegg PA Work Phone: [facility] 07-01-2022 07:12-0400 Diastolic blood pressure 76 mm[Hg] Krislyn Aberegg PA Work Phone: [facility] 07-01-2022 07:12-0400 Heart rate 94 /min Krislyn Aberegg PA Work Phone: [facility] 07-01-2022 07:12-0400 Respiratory rate 18 /min Krislyn Aberegg PA Work Phone: [facility] 07-01-2022 07:12-0400 SaO2% (BldA) [Mass fraction] 96 % Krislyn Aberegg PA Work Phone: [facility] 07-01-2022 07:12-0400 Systolic blood pressure 128 mm[Hg] Krislyn Aberegg PA Work Phone: [facility] 06-29-2022 15:26-0400 Body height 180.3 cm Sharath Issa MD Work Phone: [facility] 06-29-2022 15:26-0400 Body weight 95.25 kg Sharath Issa MD Work Phone: [facility] 06-29-2022 15:26-0400 Respiratory rate 18 /min Shaarth Issa MD Work Phone: [facility] 12-08-2021 09:35-0400 Body temperature 97.59 [degF] Korin Araiza APRN.CNP Work Phone: [facility] 12-08-2021 09:35-0400 Body weight 95.53 kg Korin Araiza APRN.PRIMER CHARGING TOOL SETTER Work Phone: [facility] 12-08-2021 09:35-0400 Diastolic blood pressure 64 mm[Hg] Korin Araiza APRN.PRIMER CHARGING TOOL SETTER Work Phone: [facility] 12-08-2021 09:35-0400 Heart rate 86 /min Korin Araiza APRN.PRIMER CHARGING TOOL SETTER Work Phone: [facility] 12-08-2021 09:35-0400 Respiratory rate 18 /min Korin Araiza APRN.PRIMER CHARGING TOOL SETTER Work Phone: [facility] 12-08-2021 09:35-0400 SaO2% (BldA) [Mass fraction] 99 % Korin Araiza APRN.PRIMER CHARGING TOOL SETTER Work Phone: [facility] 12-08-2021 09:35-0400 Systolic blood pressure 122 mm[Hg] Korin Araiza APRN.PRIMER CHARGING TOOL SETTER Work Phone: [facility] Encounters Encounter Date Encounter Type Care Provider Facility Start: 10-26-2024 End: 10-26-2024 ambulatory Dipak Aguilar DO Work Phone: [facility] [place] Comment on above: Nausea Start: 10-14-2024 End: 10-14-2024 Emergency department patient visit Dr. Dipak Aguilar DO Work Phone: -Emergency Department Work Phone: Start: 10-10-2024 End: 10-11-2024 Telephone encounter Dipak Aguilar DO Work Phone: [facility] [place] Comment on above: Patent Update: [place] tayler BP Start: 09-21-2024 End: 09-21-2024 Patient encounter procedure Vikki Meir SOLOMON.PRIMER CHARGING TOOL SETTER Work Phone: [facility] [place] Comment on above: Laceration of right hand without foreign body, subsequent encounter (Primary Dx) Start: 09-21-2024 End: 09-21-2024 ambulatory DIPAK AGUILAR Facility:[facility] Start: 09-17-2024 End: 09-17-2024 Office outpatient visit 25 minutes Vikki Worley APRN.PRIMER CHARGING TOOL SETTER Work Phone: [facility] [place] Comment on above: Right eyelid lacerat ion, subsequent encounter (Primary Dx) Start: 09-17-2024 End: 09-17-2024 ambulatory DIPAK AGUILAR Facility:[facility] Start: 09-11-2024 End: 09-11-2024 Emergency department patient visit Dr. Dipak Aguilar DO Work Phone: -Emergency Department Work Phone: Start: 09-11-2024 End: 09-11-2024 ambulatory DIPAK AGUILAR Facility:[facility] Start: 09-11-2024 End: 09-11-2024 Patient encounter procedure Ananya Frazier APRN.PRIMER CHARGING TOOL SETTER Work Phone: [facility] [place] Comment on above: Injury of head, init ial encounter (Primary Dx); Fall, initial encounter; snf current use of anticoagulant therapy; Laceration without foreign body of right hand, initial encounter; Atrial fibrillation, unspecified type (HCC) Start: 09-10-2024 End: 09-10-2024 ambulatory DIPAK AGUILAR Facility:[facility] Start: 09-10-2024 End: 09-10-2024 Patient encounter procedure Jamal Lorenzo MD Work Phone: Neurology Comment on above: TIA (transient ische daniel attack) (Primary Dx); Mild cognitive impairment; Memory loss; Sleep apnea-like behavior; History of atrial fibrillation Start: 09-07-2024 End: 09-07-2024 ambulatory DIPAK AGUILAR Facility:[facility] Start: 09-05-2024 End: 09-05-2024 Patient encounter procedure Dipak Aguilar DO Work Phone: [facility] [place] Comment on above: Hypertension, essent ial (Primary Dx); Permanent atrial fibrillation (HCC); Pulmonary hypertension (HCC); New onset type 2 diabetes mellitus (HCC); Stage 3a chronic kidney disease (HCC); Cerebrovascular accident (CVA), unspecified mechanism (HCC); SOB (shortness of breath) on exertion; Vitamin D deficiency; Dyslipidemia; Fatigue, unspecified type Start: 09-05-2024 End: 09-05-2024 ambulatory DIPAK L AGUILAR Facility:[facility] Start: 08-22-2024 End: 08-22-2024 ambulatory DIPAK L AGUILAR Facility:[facility] Start: 07-12-2024 End: 07-12-2024 ambulatory DIPAK BAZZIRISON Facility:[facility] Start: 07-02-2024 End: 07-02-2024 Patient encounter procedure Analisa Nicole MD Work Phone: Cardiology Comment on above: Permanent atrial fib rillation (HCC) [I48.21] (Primary Dx) Start: 07-02-2024 End: 07-02-2024 ambulatory DIPAK LEVION Facility:[facility] Start: 06-28-2024 End: 06-28-2024 Office outpatient visit 25 minutes Judith Garcia APRN.PRIMER CHARGING TOOL SETTER Work Phone: [facility] [place] Comment on above: Hypertension, essent ial (Primary Dx); Permanent atrial fibrillation (HCC); New onset type 2 diabetes mellitus (HCC) Start: 06-28-2024 End: 06-28-2024 ambulatory DIPAK AGUILAR Facility:[facility] Start: 06-14-2024 End: 06-14-2024 [facility] Start: 06-13-2024 End: 06-13-2024 ambulatory [facility] Facility:[facility] Start: 06-08-2024 End: 06-08-2024 Telephone encounter Citlalli Bhatti RN Pulmonary Medicine Comment on above: FILM REQ-HARPSTER Start: 06-07-2024 End: 06-11-2024 Telephone encounter Dipak Aguilar DO Work Phone: [facility] [place] Comment on above: Patient Update Start: 05-31-2024 End: 05-31-2024 ambulatory Judith Garcia APRN.PRIMER CHARGING TOOL SETTER Work Phone: [facility] [place] Comment on above: medication clarifica tion please Start: 05-31-2024 End: 05-31-2024 Refill Analisa Nicole MD Work Phone: [facility] [place] Comment on above: Med Change Request Start: 05-30-2024 End: 05-30-2024 Office outpatient visit 25 minutes Judith Garcia APRN.PRIMER CHARGING TOOL SETTER Work Phone: [facility] [place] Comment on above: New onset type 2 vaughn betes mellitus (HCC) (Primary Dx); Permanent atrial fibrillation (HCC); Hypertension, essential Start: 05-30-2024 End: 05-31-2024 Refill Analisa Nicole MD Work Phone: [facility] [place] Comment on above: Refill Request Start: 05-24-2024 End: 05-29-2024 Telephone encounter Dipak Aguilar DO Work Phone: [facility] [place] Comment on above: Patient Update Start: 05-21-2024 End: 05-22-2024 Telephone encounter Dipak Aguilar DO Work Phone: [facility] [place] Comment on above: Home Health Nursing- Plan of Care (And physical therapy plan of care/); Hypertension Start: 05-18-2024 End: 07-18-2024 Follow-up encounter Judith Garcia APRN.PRIMER CHARGING TOOL SETTER Work Phone: [facility] [place] Start: 05-17-2024 End: 05-17-2024 Follow-up encounter Radha Berman APRN.PRIMER CHARGING TOOL SETTER Work Phone: [facility] [place] Start: 05-17-2024 End: 05-17-2024 Telephone encounter Dipak Aguilar DO Work Phone: [facility] [place] Comment on above: Fax over last OV Not e Start: 05-17-2024 End: 05-17-2024 ambulatory DIPAK AGUILAR Facility:[facility] Start: 05-17-2024 End: 05-17-2024 Subsequent hospital visit by physician [facility] Work Phone: Radiology Comment on above: Hospital discharge f ollow-up [Z09] Start: 05-16-2024 End: 05-16-2024 ambulatory RADHA BERMAN Facility:[facility] Start: 05-16-2024 End: 05-16-2024 Office outpatient visit 40 minutes Radha Berman NEHA.PRIMER CHARGING TOOL SETTER Work Phone: [facility] [place] Comment on above: Hospital discharge f ollow-up (Primary Dx); Asthma-COPD overlap syndrome (HCC); Chronic respiratory failure with hypoxia (HCC); Decreased activities of daily living (ADL); Bilateral leg edema; Confusion; Cerebrovascular accident (CVA), unspecified mechanism (HCC); Poor mobility; Unsteady gait Start: 02-06-2024 End: 02-08-2024 Refill Analisa Nicole MD Work Phone: [facility] [place] Comment on above: Refill Request Start: 01-31-2024 End: 01-31-2024 Telephone encounter Analisa Nicole MD Work Phone: Cardiology Start: 01-24-2024 End: 01-24-2024 Patient encounter procedure [facility] Provider [facility] Department Start: 01-09-2024 End: 01-10-2024 Telephone encounter Dipak Aguilar DO Work Phone: [facility] [place] Comment on above: Medication Problem Start: 01-04-2024 End: 01-04-2024 Patient encounter procedure [facility] Provider [facility] Department Start: 01-04-2024 End: 01-04-2024 Telephone encounter Analisa Nicole MD Work Phone: [facility] [place] Comment on above: Cardiac Clearance Start: 12-13-2023 End: 12-13-2023 Telephone encounter Judith Garcia APRN.PRIMER CHARGING TOOL SETTER Work Phone: [facility] [place] Comment on above: Results; Appointment Start: 12-12-2023 End: 12-12-2023 Telephone encounter Analisa Nicole MD Work Phone: Cardiology Start: 12-12-2023 End: 12-12-2023 ambulatory DIPAK AGUILAR Facility:[facility] Start: 12-12-2023 End: 12-12-2023 Nursing evaluation of patient and report Nurse Card Admin [facility] Work Phone: Cardiology Comment on above: Screening for ischem ic heart disease (Primary Dx) Start: 12-12-2023 End: 12-12-2023 ambulatory DIPAK AGUILAR Facility:[facility] Start: 12-12-2023 End: 12-12-2023 Subsequent hospital visit by physician [facility] Work Phone: Nuclear Medicine Start: 12-06-2023 End: 12-06-2023 Telephone encounter Dipak Aguilar DO Work Phone: [facility] [place] Start: 12-05-2023 End: 12-05-2023 Patient encounter procedure Pulm Lab [facility] Work Phone: PULM LAB [facility] Start: 12-05-2023 End: 12-05-2023 Subsequent hospital visit by physician [facility] ([facility]) Work Phone: Cat Scan Comment on above: Wheezing [R06.2] Start: 12-05-2023 End: 12-05-2023 ambulatory Pulm Lab [facility] Work Phone: PULM LAB [facility] Comment on above: Spirometry Start: 11-29-2023 End: 11-29-2023 ambulatory JUDITH GARCIA Facility:[facility] Start: 11-29-2023 End: 11-29-2023 Patient encounter procedure Judith Garcia CRIMPING PRESS OPERATOR.PRIMER CHARGING TOOL SETTER Work Phone: [facility] [place] Comment on above: Medicare annual well ness visit, subsequent (Primary Dx); Wheezing; Asthma-COPD overlap syndrome (HCC); SOB (shortness of breath) on exertion; Decreased activity tolerance; Productive cough; Screening for depression; Encounter for immunization; Encounter for screening examination for other mental health and behavioral disorders Start: 11-28-2023 End: 11-28-2023 ambulatory Nurse Card Admin [facility] Work Phone: Cardiology Comment on above: Stress Test Instruct ions for 12/05/23 Start: 11-28-2023 End: 11-28-2023 E-mail encounter from caregiver Nurse Card Admin [facility] Work Phone: Cardiology Start: 11-23-2023 End: 11-23-2023 ambulatory DIPAK AGUILAR Facility:[facility] Start: 11-23-2023 End: 11-23-2023 Office outpatient new 45 minutes Jeffrey Zurita MD Work Phone: Orthopaedics Comment on above: Lumbar spondylosis ( Primary Dx) Start: 11-23-2023 ambulatory DIPAK AGUILAR Facil ity:[facility] Start: 11-23-2023 End: 11-23-2023 Subsequent hospital visit by physician [facility] Work Phone: Radiology Comment on above: Bilateral hip pain [ M25.551, M25.552] Start: 11-14-2023 End: 11-16-2023 Refill Analisa Nicole MD Work Phone: [facility] [place] Comment on above: Refill Request Start: 11-10-2023 End: 11-10-2023 Orders Only Jeffrey Zurita MD Work Phone: Orthopaedics Comment on above: Bilateral hip pain ( Primary Dx) Start: 11-04-2023 End: 11-04-2023 ambulatory DIPAK AGUILAR Facility:[facility] Start: 11-02-2023 End: 11-03-2023 Telephone encounter Dipak Magi Aguilar DO Work Phone: [facility] [place] Start: 11-01-2023 End: 11-01-2023 Refill Wes Mcintosh MD Work Phone: [facility] [place] Comment on above: Refill Request Start: 10-04-2023 Telephone encounter Dipak upton DO Work Phone: [facility] [place] Start: 09-30-2023 ambulatory Facility:[facility] Start: 09-28-2023 Telephone encounter Analisa Nicole MD Work Phone: Cardiology Comment on above: Results Start: 09-12-2023 End: 09-12-2023 Patient encounter procedure Analisa Nicole MD Work Phone: Cardiology Comment on above: Screening for ischem ic heart disease (Primary Dx); Shortness of breath; Permanent atrial fibrillation (HCC) Start: 06-24-2023 End: 06-24-2023 Patient encounter procedure Sharath Issa MD Work Phone: [facility] [place] [facility] Comment on above: Bladder neck strictu re (Primary Dx); ED (erectile dysfunction) of organic origin Start: 06-24-2023 End: 06-24-2023 ambulatory SHARATH ISSA Facility:[place] [facility] Start: 05-17-2023 Refill Sharath Issa MD Work Phone: [facility] Comment on above: Refill Request Start: 05-02-2023 ambulatory Mini Saldaña RN Amb [facility] Care Management Comment on above: ACM LOW RN ( EDU per request of payor) Start: 11-19-2022 Telephone encounter Radha neff CRIMPING PRESS OPERATOR.PRIMER CHARGING TOOL SETTER Work Phone: [facility] Comment on above: Results Start: 11-01-2022 Refill Wes Mcintosh MD Work Phone: Cardiology Comment on above: Refill Request Start: 10-26-2022 End: 10-26-2022 Nursing evaluation of patient and report Nurse Urol Marcy Work Phone: [facility] Comment on above: BPH with obstruction /lower urinary tract symptoms (Primary Dx) Start: 10-20-2022 Preprocedural examination done Sharath Issa MD Work Phone: [facility] Work Phone: Start: 10-20-2022 Telephone encounter Sharath Issa MD Work Phone: [facility] Comment on above: Lead Software Developer - H ospital Follow Up Start: 10-19-2022 End: 10-19-2022 Patient encounter procedure Sharath Issa MD Work Phone: [facility] Comment on above: Weak urinary stream (Primary Dx); Bladder neck stricture; Frequency of micturition Start: 10-14-2022 Telephone encounter Dipak upton DO Work Phone: [facility] [place] Comment on above: requesting a GI refe rral Start: 10-12-2022 End: 10-12-2022 Patient encounter procedure Beata Watkins APRN.PRIMER CHARGING TOOL SETTER Work Phone: [facility] Comment on above: Weak urinary stream (Primary Dx); Incomplete bladder emptying; Bladder neck stricture; Poor urinary stream; Nocturia Start: 09-29-2022 Telephone encounter Dipak upton DO Work Phone: [facility] Comment on above: Medication Problem Start: 08-31-2022 End: 08-31-2022 Patient encounter procedure Wes Mcintosh MD Work Phone: Cardiology Comment on above: Permanent atrial fib rillation (HCC) (Primary Dx) Start: 08-20-2022 Telephone encounter Sharath Issa MD Work Phone: [facility] Comment on above: Results Start: 08-17-2022 End: 08-17-2022 Patient encounter procedure Sharath Issa MD Work Phone: [facility] Comment on above: Bladder neck strictu re (Primary Dx); Nocturia; Urinary incontinence, unspecified type Start: 08-09-2022 End: 08-09-2022 Nursing evaluation of patient and report Nurse Urol Marcy Work Phone: [facility] Comment on above: BPH with obstruction /lower urinary tract symptoms (Primary Dx) Start: 08-05-2022 Telephone encounter Sharath Issa MD Work Phone: [facility] Comment on above: Lead Software Developer - H ospital Follow Up Start: 07-29-2022 Preprocedural examination done Sharath Issa MD Work Phone: [facility] Work Phone: Start: 07-26-2022 End: 07-26-2022 Patient encounter procedure Crystal Pradhan APRN.PRIMER CHARGING TOOL SETTER Work Phone: [facility] [place] Comment on above: Preoperative clearan ce (Primary Dx); Asthma-COPD overlap syndrome (HCC); Atrial fibrillation, unspecified type (HCC) Start: 07-26-2022 End: 07-26-2022 Preoperative state Crystal Pradhan APRN.PRIMER CHARGING TOOL SETTER Work Phone: [facility] [place] Start: 07-22-2022 Telephone encounter Sharath Issa MD Work Phone: [facility] Comment on above: Surgery Scheduled Start: 07-21-2022 Telephone encounter Dipak upton DO Work Phone: [facility] [place] Comment on above: medical clearance fo rm Start: 07-20-2022 End: 07-20-2022 Patient encounter procedure Sharath Issa MD Work Phone: [facility] Comment on above: BPH with obstruction /lower urinary tract symptoms (Primary Dx); Nocturia; Poor urinary stream; Incomplete bladder emptying; Bladder neck stricture Start: 07-01-2022 End: 07-01-2022 Patient encounter procedure Denise FLOYD Work Phone: [facility] Comment on above: Acute otitis externa of right ear, unspecified type (Primary Dx); Cellulitis of right external ear Start: 06-29-2022 End: 06-29-2022 Patient encounter procedure Sharath Issa MD Work Phone: [facility] Comment on above: BPH with obstruction /lower urinary tract symptoms (Primary Dx); Nocturia; Poor urinary stream; Frequency of micturition; Incomplete bladder emptying Start: 12-28-2021 Telephone encounter Wes Booth MD Work Phone: Cardiology Comment on above: Patient Update Start: 12-08-2021 End: 12-08-2021 Patient encounter procedure Korin Araiza APRN.PRIMER CHARGING TOOL SETTER Work Phone: [facility] Comment on above: Skin lesion (Primary Dx) Start: 12-07-2021 Telephone encounter Dipak upton DO Work Phone: [facility] [place] Comment on above: Results Start: 12-01-2021 End: 12-01-2021 Nursing evaluation of patient and report Mi Nurse Work Phone: [facility] [place] Comment on above: Need for vaccination (Primary Dx) Start: 09-30-2021 Telephone encounter Wes Booth MD Work Phone: Cardiology Comment on above: Forms Start: 08-07-2021 ambulatory No Pcp [facility] Start: 10-13-2020 End: 10-13-2020 Subsequent hospital visit by physician Xr [facility] Work Phone: Radiology Comment on above: Knee injury, right, initial encounter [S89.91XA] Start: 09-26-2019 Patient encounter status [facility] Start: 11-01-2017 End: 11-01-2017 Patient encounter SHARATH ISSA Facility:[facility] Procedures Date Procedure Procedure Detail Performing Clinician Start: 09-21-2024 REMOVAL SUTURES OR S TAPLES NOT REQUIRING ANESTHESIA Vikki Worley CRIMPING PRESS OPERATOR.PRIMER CHARGING TOOL SETTER Work Phone: Start: 09-17-2024 REMOVAL SUTURES OR S TAPLES NOT REQUIRING ANESTHESIA Vikki Worley CRIMPING PRESS OPERATOR.PRIMER CHARGING TOOL SETTER Work Phone: Start: 09-11-2024 X-ray of knee, four or more views Dr. Dipak Aguilar DO Work Phone: Start: 09-11-2024 CT of head without contrast Dr. Dipak Aguilar DO Work Phone: Start: 05-17-2024 Dup-scan xtr veins c omplete bilateral study Radha Berman CRIMPING PRESS OPERATOR.PRIMER CHARGING TOOL SETTER Work Phone: Start: 12-12-2023 Myocardial spect mul tiple studies Analisa Nicole MD Work Phone: Start: 12-05-2023 Plethysmography lung volumes w/wo airway resist Judith Garcia CRIMPING PRESS OPERATOR.PRIMER CHARGING TOOL SETTER Work Phone: Start: 11-29-2023 Adult depression scr eening assessment Judith Garcia CRIMPING PRESS OPERATOR.PRIMER CHARGING TOOL SETTER Work Phone: Start: 11-23-2023 Radex spine lumbosac [...] et rgnt auto w/o microscopy Beata Watkins APRN.PRIMER CHARGING TOOL SETTER Work Phone: Start: 08-17-2022 Maritza post-voiding re sidual urine&/bladder cap Sharath Issa MD Work Phone: Start: 08-17-2022 Culture bacterial quanttative colony count urine Sharath Issa MD Work Phone: Start: 07-26-2022 Ecg routine ecg w/le ast 12 lds i&r only [facility] Provider Start: 07-20-2022 Urnls dip stick/tabl et rgnt auto w/o microscopy Sharath Issa MD Work Phone: Start: 12-01-2021 [employer] COVI D-19 BIVALENT BOOSTER VACCINE, AGE 12+ YR Dipak Aguilar DO Work Phone: Start: 10-13-2020 Radiologic exam ches t 2 views Wes Chavez CRIMPING PRESS OPERATOR.PRIMER CHARGING TOOL SETTER Work Phone: Start: 10-13-2020 Radiologic exam knee complete 4/more views Wes Chavez CRIMPING PRESS OPERATOR.PRIMER CHARGING TOOL SETTER Work Phone: Plan of Treatment Date Care Activity Detail Author Start: 05-17-2027 Diabetes Screening Diabetes Screening [facility] Start: 11-03-2026 Diabetes Screening Diabetes Screening [facility] Start: 11-18-2025 Diabetes Screening Diabetes Screening [facility] Start: 09-30-2025 End: 09-30-2025 Patient encounter procedure 09/30/2025 2:00 PM EDT Office Visit [facility] [address] [place] [phone] Sharath Issa MD [address] [place] [address] 12 months [facility] Comment on above: 12 months Start: 09-05-2025 Diabetic foot examination Diabetic Foot Exam [facility] Start: 07-29-2025 DIABETES SCREEN DIABETES SCREEN [facility] Start: 05-16-2025 Hepatitis B surface antibody level LDL Cholesterol [facility] Start: 02-22-2025 Hemoglobin A1c measurement HbA1C [facility] Start: 02-11-2025 End: 02-11-2025 Patient encounter procedure 02/11/2025 9:00 AM EST Office Visit Cardiology [address] [place] [address] Analisa Nicole MD [address] [facility], [address] [place] [address] 6 month follow up Cardiology Comment on above: 6 month follow up Start: 12-24-2024 End: 12-24-2024 Patient encounter procedure 12/24/2024 3:00 PM EST Office Visit [facility] [place] [address] [place] [address] Dipak Aguilar DO [address] [place] [address] 4 month follow up [facility] [place] Comment on above: 4 month follow up Start: 11-28-2024 Anxiety Screening Anxiety Screening [facility] Start: 11-28-2024 Depression Screening Depression Screening [facility] Start: 11-28-2024 Urine microalbumin profile DTaP,Tdap,Td Vaccine (1 - Tdap) [facility] Comment on above: Postponed from 11/12/2017 (Declined at t his time) Start: 11-16-2024 DIABETES SCREEN DIABETES SCREEN [facility] Start: 11-16-2024 Hemoglobin A1c measurement HbA1C [facility] Start: 10-22-2024 Influenza [facility] Start: 10-14-2024 [facility] Start: 09-25-2024 End: 09-25-2024 Patient encounter procedure [facility] Comment on above: 12 months (resched from 06/25) Yearly- Need updated medication list Start: 09-21-2024 End: 09-21-2024 Patient encounter procedure 09/21/2024 8:40 AM EDT Office Visit [facility] [place] [address] [place] [address] Vikki Worley, CRIMPING PRESS OPERATOR.PRIMER CHARGING TOOL SETTER [address] [place] [address] stitch removal on hand(done at [facility] ER 09/11/24) [facility] [place] Comment on above: stitch removal on hand(done at [facility] ER ) Start: 09-17-2024 End: 09-17-2024 Patient encounter procedure 09/17/2024 8:20 AM EDT Office Visit [facility] [place] [address] [place] [address] Vikki Worley, CRIMPING PRESS OPERATOR.PRIMER CHARGING TOOL SETTER [address] [place] [address] [facility] 09/11/24 f/u-pt fell- stitch removal by eye [facility] [place] Comment on above: [facility] 09/11/24 f/u-pt fell- stitch remov al by eye Start: 09-11-2024 Simple repair f/e/e/n/l/m 2.5cm/< RPR F/E/E/N/L/M 2.5 CM/< [facility] Start: 09-11-2024 Smpl repair scalp/neck/ax/genit/trunk 2.6-7.5cm RPR S/N/AX/GEN/TRNK2.6-7.5 CM [facility] Start: 09-11-2024 [facility] Start: 09-10-2024 End: 09-10-2024 Patient encounter procedure 09/10/2024 11:00 AM EDT Office Visit Neurology [address] [place], [place] [address] Jamal Lorenzo Jr., MD [address] [place], [place] [phone] Hospital discharge follow-up [Z09] Neurology Comment on above: Hospital discharge follow-up [Z09] Start: 09-07-2024 End: 09-07-2024 Patient encounter procedure 09/07/2024 1:50 PM EDT Office Visit Cardiology [address], [place] [phone] Permanent atrial fibrillation (HCC) [I48.21]; Hypertension, essential [I10]; Pulmonary hypertension (HCC) [I27.20] Cardiology Comment on above: Permanent atrial fibrillation (HCC) [I48 .21]; Hypertension, essential [I10]; Pulmonary hypertension (HCC) [I27.20] Start: 09-05-2024 End: 09-05-2024 Patient encounter procedure 09/05/2024 12:00 PM EDT Office Visit [facility] [place] [address] [place], [place] [phone] Dipak Aguilar DO [address] [place], [place] [phone] 3 mo follow up [facility] [place] Comment on above: 3 mo follow up Start: 07-12-2024 End: 07-12-2024 Patient encounter procedure 07/12/2024 3:20 PM EDT Office Visit [facility] [place] [address] [place], [place] [phone] Shayla Hines APRN.PRIMER CHARGING TOOL SETTER [address] [place], [place] [phone] 2 week follow up [facility] [place] Comment on above: 2 week follow up Start: 07-02-2024 End: 07-02-2024 Patient encounter procedure Cardiology Comment on above: 1yr Start: 06-25-2024 End: 06-25-2024 Patient encounter procedure [facility] Comment on above: 12 months 12/28 lvm need to r/ s Dr. Issa months Lung nodule [R91.1] Start: 06-14-2024 End: 06-14-2024 Patient encounter procedure 06/14/2024 1:30 PM EDT Office Visit Pulmonary Medicine [address] [place] [address] Omar Treadwell APRN.PRIMER CHARGING TOOL SETTER [address] [place] [address] Lung nodule [R91.1] Pulmonary Medicine Comment on above: Lung nodule [R91.1] Start: 06-13-2024 End: 06-13-2024 Patient encounter procedure 06/13/2024 3:40 PM EDT Office Visit [facility] [place] [address] [place] [address] Judith Garcia, NEHA.PRIMER CHARGING TOOL SETTER [address] [place] [address] 2 week bp check Family [facility] Comment on above: 2 week bp check Start: 05-30-2024 End: 05-30-2024 Patient encounter procedure 05/30/2024 2:40 PM EDT Office Visit Family [facility] [place] [address] [place] [address] Judith Garcia, NEHA.PRIMER CHARGING TOOL SETTER [address] [place] [address] 2 wk follow up (diuretics) [facility] [place] Comment on above: 2 wk follow up (diuretics) Start: 05-17-2024 End: 05-17-2024 Patient encounter procedure 05/17/2024 8:30 AM EDT Appointment Radiology [address] [place], [place] [address] Hospital discharge follow-up [Z09] Radiology Comment on above: Hospital discharge follow-up [Z09] Start: 05-16-2024 End: 08-15-2024 Comprehensive metabolic 2000 panel - Serum or Plasma [facility] Work Phone: Comment on above: Expected: 05/16/2024, Expires: Start: 05-16-2024 End: 08-15-2024 Lipid 1996 panel - Serum or Plasma [facility] Comment on above: Expected: 05/16/2024, Expires: Start: 05-16-2024 End: 08-15-2024 Natriuretic peptide.B prohormone N-Terminal [Mass/volume] in Serum or Plasma [facility] Comment on above: Expected: 05/16/2024, Expires: Start: 05-16-2024 End: 08-15-2024 Thyrotropin [Units/volume] in Serum or Plasma [facility] Comment on above: Expected: 05/16/2024, Expires: Start: 04-28-2024 Covid-19 Vaccine () Covid-19 Vaccine () [facility] Start: 02-22-2024 Advance Directive Discussion Advance Directive Discussion [facility] Start: 02-22-2024 Medicare Advantage Annual Wellness Visit Medicare Advantage Annual Wellness Visit [facility] Start: 12-12-2023 End: 12-12-2023 Nursing evaluation of patient and report 12/12/2023 11:20 AM EDT Nurse Visit Cardiology [address] [place] [phone] Wstr, Nurse Card Admin [facility] [address] [place], [place] [phone] Shortness of breath [R06.02] Cardiology Comment on above: Shortness of breath [R06.02] Start: 12-12-2023 End: 12-12-2023 Patient encounter procedure Nuclear Medicine Comment on above: Shortness of breath [R06.02] Start: 12-05-2023 End: 12-05-2023 ambulatory PULM LAB [facility] Comment on above: Wheezing [R06.2]; 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]; SOB (shortness of breath) on exertion [R06.02]; Decreased activity tolerance [R68.89]; Productive cough [R05.8] Start: 12-05-2023 End: 12-05-2023 Nursing evaluation of patient and report 12/05/2023 8:15 AM EDT Nurse Visit Cardiology [address] [place] [address] Wstr, Nurse Card Admin [facility] [address] [place] [phone] Shortness of breath [R06.02] Cardiology Comment on [...] 11/29/2023 7:00 AM EDT Office Visit Family [facility] [address] [place] [address] Judith Garcia APRN.PRIMER CHARGING TOOL SETTER [address] [place] [address] annual check up [facility] Comment on above: annual check up Start: 11-23-2023 End: 11-23-2023 Patient encounter procedure Orthopaedics Comment on above: kobi hip pain (both hips replaced in past outside of [facility]) b hip Start: 11-18-2023 Covid-19 Vaccine (6 - Pfizer series) Covid-19 Vaccine (6 - Pfizer series) [facility] Comment on above: Postponed from 04/03/2022 (Declined at t his time) Start: 11-18-2023 Urine microalbumin profile DTaP,Tdap,Td Vaccine (1 - Tdap) [facility] Comment on above: Postponed from 11/12/2017 (Declined at t his time) Start: 11-14-2023 DIABETES SCREEN DIABETES SCREEN [facility] Start: 11-02-2023 End: 02-01-2024 25-hydroxyvitamin D3 [Mass/volume] in Serum or Plasma VITAMIN D 25 HYDROXY Lab Routine Fatigue, unspecified type Atrial fibrillation, unspecified type (HCC) Vitamin D deficiency Expected: 11/02/2023, Expires: 02/01/2024 [facility] Comment on above: Expected: 11/02/2023, Expires: Start: 11-02-2023 End: 02-01-2024 CBC W Auto Differential panel - Blood COMPLETE BLOOD COUNT AND DIFFERENTIAL Lab Routine Fatigue, unspecified type Atrial fibrillation, unspecified type (HCC) Dyslipidemia Expected: 11/02/2023, Expires: 02/01/2024 [facility] Work Phone: Comment on above: Expected: 11/02/2023, Expires: Start: 11-02-2023 End: 02-01-2024 Cobalamin (Vitamin B12) [Mass/volume] in Serum or Plasma VITAMIN B12 Lab Routine Fatigue, unspecified type Atrial fibrillation, unspecified type (HCC) Expected: 11/02/2023, Expires: 02/01/2024 [facility] Comment on above: Expected: 11/02/2023, Expires: Start: 11-02-2023 End: 02-01-2024 Comprehensive metabolic 2000 panel - Serum or Plasma COMPREHENSIVE METABOLIC PANEL Lab Routine Atrial fibrillation, unspecified type (HCC) Expected: 11/02/2023, Expires: 02/01/2024 [facility] Comment on above: Expected: 11/02/2023, Expires: 4 Start: 11-02-2023 End: 02-01-2024 Hemoglobin A1c in Blood HEMOGLOBIN A1C Lab Routine Atrial fibrillation, unspecified type (HCC) Hyperglycemia Expected: 11/02/2023, Expires: 02/01/2024 [facility] Comment on above: Expected: 11/02/2023, Expires: Start: 11-02-2023 End: 02-01-2024 Iron and Iron binding capacity panel - Serum or Plasma IRON AND TIBC Lab Routine Fatigue, unspecified type Atrial fibrillation, unspecified type (HCC) Expected: 11/02/2023, Expires: 02/01/2024 [facility] Comment on above: Expected: 11/02/2023, Expires: Start: 11-02-2023 End: 02-01-2024 Lipid 1996 panel - Serum or Plasma LIPID PANEL BASIC Lab Routine Atrial fibrillation, unspecified type (HCC) Dyslipidemia Expected: 11/02/2023, Expires: 02/01/2024 [facility] Comment on above: Expected: 11/02/2023, Expires: 4 Start: 11-02-2023 End: 02-01-2024 Magnesium [Mass/volume] in Serum or Plasma MAGNESIUM Lab Routine Fatigue, unspecified type Atrial fibrillation, unspecified type (HCC) Expected: 11/02/2023, Expires: 02/01/2024 [facility] Comment on above: Expected: 11/02/2023, Expires: Start: 11-02-2023 End: 02-01-2024 PSA/PROSTATE SPECIFIC ANTIGEN SCREENING PSA/PROSTATE SPECIFIC ANTIGEN SCREENING Lab Routine BPH with obstruction/lower urinary tract symptoms Screening for prostate cancer Expected: 11/02/2023, Expires: 02/01/2024 [facility] Comment on above: Expected: 11/02/2023, Expires: Start: 11-02-2023 End: 02-01-2024 Thyrotropin [Units/volume] in Serum or Plasma THYROID STIMULATING HORMONE Lab Routine Fatigue, unspecified type Atrial fibrillation, unspecified type (HCC) Expected: 11/02/2023, Expires: 02/01/2024 [facility] Comment on above: Expected: 11/02/2023, Expires: 4 Start: 11-02-2023 End: 02-01-2024 Thyroxine (T4) free [Mass/volume] in Serum or Plasma T4 FREE/FREE THYROXINE Lab Routine Fatigue, unspecified type Atrial fibrillation, unspecified type (HCC) Expected: 11/02/2023, Expires: 02/01/2024 [facility] Comment on above: Expected: 11/02/2023, Expires: 4 Start: 11-01-2023 End: 01-31-2024 CBC W Auto Differential panel - Blood COMPLETE BLOOD COUNT AND DIFFERENTIAL Lab Routine Permanent atrial fibrillation (HCC) Expected: 11/01/2023, Expires: 01/31/2024 [facility] Work Phone: Comment on above: Expected: 11/01/2023, Expires: 4 Start: 10-23-2023 Influenza vaccination Influenza Vaccine (#1) [facility] Start: 09-26-2023 End: 09-11-2024 Echocardiography ECHO Cardiology Routine Shortness of breath Expected: 09/26/2023, Expires: 09/11/2024 [facility] Comment on above: Expected: 09/26/2023, Expires: 5 Start: 09-26-2023 End: 10-11-2024 NM Heart Perfusion W multiple states of exercise NM CARDIAC PERF STRESS/EXERCISE Radiology Routine Shortness of breath Expected: 09/26/2023, Expires: 10/11/2024 [facility] Comment on above: Expected: 09/26/2023, Expires: 5 Start: 09-26-2023 End: 09-26-2023 Patient encounter procedure 09/26/2023 11:20 AM EDT Office Visit Cardiology [address] [place] [address] Shortness of breath [R06.02] Cardiology Comment on above: Shortness of breath [R06.02] Start: 09-12-2023 End: 09-07-2024 ECG COMPLETE [facility] Work Phone: Comment on above: Expected: 09/12/2023, Expires: 5 Start: 09-12-2023 End: 09-12-2023 Patient encounter procedure 09/12/2023 10:40 AM EDT Office Visit Cardiology [address] [place] [phone] Analisa Nicole MD [address] [facility], [address] [place] [address] est care/ transfer from Dr. Mcintosh Cardiology Comment on above: est care/ transfer from Dr. Mcintosh Start: 02-21-2023 Advance Directive Discussion Advance Directive Discussion [facility] Start: 02-21-2023 Behavioral Health Screening Behavioral Health Screening [facility] Start: 02-21-2023 Depression Assessment Depression Assessment [facility] Start: 10-22-2022 Influenza vaccination INFLUENZA (#1) [facility] Start: 04-03-2022 COVID-19 VACCINE (6 - Pfizer series) COVID-19 VACCINE (6 - Pfizer series) [facility] Start: 02-21-2022 ADVANCE DIRECTIVE DISCUSSION ADVANCE DIRECTIVE DISCUSSION [facility] Start: 02-21-2022 DEPRESSION ASSESSMENT DEPRESSION ASSESSMENT [facility] Start: 10-22-2021 Influenza vaccination INFLUENZA (#1) [facility] Start: 03-19-2021 COVID-19 VACCINE (4 - Booster for Pfizer series) COVID-19 VACCINE (4 - Booster for Pfizer series) [facility] Start: 02-21-2021 ADVANCE DIRECTIVE DISCUSSION ADVANCE DIRECTIVE DISCUSSION [facility] Start: 02-21-2021 DEPRESSION ASSESSMENT DEPRESSION ASSESSMENT [facility] Start: 03-02-2019 SHINGRIX VACCINE (2 of 2) SHINGRIX VACCINE (2 of 2) [facility] Start: 11-12-2017 Urine microalbumin profile [facility] Start: 1954 Anxiety Screening Anxiety Screening [facility] Start: 1954 Depression Screening Depression Screening [facility] Start: 1946 Diabetic foot examination Diabetic Foot Exam [facility] Start: 1946 Glaucoma screening Dilated Retinal Exam [facility] Start: 1946 Hepatitis B screening Urine Albumin:Creatinine Ratio [facility] Bacteria identified in Urine by Culture URINE CULTURE Microbiology Routine Poor urinary stream Ordered: 07/20/2022 [facility] Work Phone: Comment on above: Ordered: 07/20/2022 Bacteria identified in Urine by Culture URINE CULTURE Microbiology Routine Urinary incontinence, unspecified type 08/17/2022 10:50 AM EDT [facility] Work Phone: Bacteria identified in Urine by Culture URINE CULTURE Microbiology Routine Weak urinary stream 10/12/2022 12:50 PM EDT [facility] Work Phone: End: 12-28-2024 CT Chest WO contrast CT CHEST WO IVCON Radiology Routine Wheezing Asthma-COPD overlap syndrome (HCC) SOB (shortness of breath) on exertion Decreased activity tolerance Productive cough 1 Occurrences starting 11/29/2023 until 12/28/2024 [facility] Work Phone: Comment on above: 1 Occurrences starting 11/29/2023 until 12/28/2024 CT Chest WO contrast CT CHEST WO IVCON Radiology Routine Wheezing Asthma-COPD overlap syndrome (HCC) SOB (shortness of breath) on exertion Decreased activity tolerance Productive cough 12/05/2023 11:51 AM EDT [facility] Work Phone: Cystourethroscopy CYSTO.PANENDO Procedures Routine Bladder neck stricture Ordered: 07/20/2022 [facility] Work Phone: Comment on above: Ordered: 07/20/2022 Cystourethroscopy [facility]ANEND[facility] Procedures Routine Weak urinary stream Ordered: 10/19/2022 [facility] Work Phone: Comment on above: Ordered: 10/19/2022 Cystourethroscopy [facility]ST[facility].PANENDO Procedures Routine Bladder neck stricture Ordered: 06/24/2023 [facility] Work Phone: Comment on above: Ordered: 06/24/2023 End: 07-27-2023 ECG COMPLETE ECG COMPLETE ECG Routine Preoperative clearance 1 Occurrences starting 07/26/2022 until 07/27/2023 [facility] Work Phone: Comment on above: 1 Occurrences starting 07/26/2022 until 07/27/2023 ECG COMPLETE ECG COMPLETE ECG 07/26/2022 9:57 AM EDT [facility] End: 09-05-2025 Echocardiography ECHO Cardiology Routine Permanent atrial fibrillation (HCC) Hypertension, essential Pulmonary hypertension (HCC) 1 Occurrences starting 09/05/2024 until 09/05/2025 [facility] Work Phone: Comment on above: 1 Occurrences starting 09/05/2024 until 09/05/2025 End: 12-28-2024 LUNG VOLUMES LUNG VOLUMES PFT Routine Wheezing Asthma-COPD overlap syndrome (HCC) SOB (shortness of breath) on exertion Decreased activity tolerance Productive cough 1 Occurrences starting 11/29/2023 until 12/28/2024 [facility] Comment on above: 1 Occurrences starting 11/29/2023 until 12/28/2024 Patient Education [facility] Work Phone: End: 12-28-2024 SPIROMETRY - BASELINE AND POST DILATOR SPIROMETRY - BASELINE AND POST DILATOR PFT Routine Wheezing Asthma-COPD overlap syndrome (HCC) SOB (shortness of breath) on exertion Decreased activity tolerance Productive cough 1 Occurrences starting 11/29/2023 until 12/28/2024 [facility] Comment on above: 1 Occurrences starting 11/29/2023 until 12/28/2024 End: 06-15-2025 US Lower extremity vein - bilateral US DVT LOWER BILATERAL Radiology Routine Hospital discharge follow-up Bilateral leg edema 1 Occurrences starting 05/16/2024 until 06/15/2025 [facility] Comment on above: 1 Occurrences starting 05/16/2024 until 06/15/2025 End: 12-09-2024 XR HIP BILATERAL 5V PEL/AP/LAT EACH HIP XR HIP BILATERAL 5V PEL/AP/LAT EACH HIP Radiology Routine Bilateral hip pain 1 Occurrences starting 11/10/2023 until 12/09/2024 [facility] Comment on above: 1 Occurrences starting 11/10/2023 until 12/09/2024 End: 12-09-2024 XR Knee - right 4 Views XR KNEE GENERAL 4V AP BOTH/PA BOTH/LAT/MERC RIGHT Radiology Routine Bilateral hip pain 1 Occurrences starting 11/10/2023 until 12/09/2024 [facility] Work Phone: Comment on above: 1 Occurrences starting 11/10/2023 until 12/09/2024 End: 12-22-2024 XR Lumbar spine AP and Lateral XR LUMBAR LIMITED 2V AP/LAT Radiology Routine 1 Occurrences starting 11/23/2023 until 12/22/2024 [facility] Work Phone: Comment on above: 1 Occurrences starting 11/23/2023 until 12/22/2024 XR Lumbar spine AP a nd Lateral XR LUMBAR LIMITED 2V AP/LAT Radiology Routine 11/23/2023 8:59 AM EDT [facility] Immunizations Immunization Date Immunization Notes Care Provider Sandy echols 11-30-2023 zoster vaccine recombinant Pulm Wstr Work Phone: [facility] 10-30-2023 influenza virus vacc ine, unspecified formulation Dipak Aguilar DO Work Phone: [facility] 05-08-2023 COVID-19 vaccine, ag e 12+ yr, season (PFIZER-BIONTECH) Sharath Issa MD Work Phone: [facility] 11-27-2022 COVID-19 vaccine, ag e 12+ yr, season (PFIZER-BIONTECH) Mini Saldaña RN [facility] 11-04-2022 influenza (HD-IIV4) vaccine, age 65+ yr, high dose, quadrivalent, PF (FLUZONE HIGH-DOSE) Radha Berman CRIMPING PRESS OPERATOR.PRIMER CHARGING TOOL SETTER Work Phone: [facility] 11-04-2022 respiratory syncytia l virus (RSV) vaccine, adjuvanted (AREXVY) Radha Berman CRIMPING PRESS OPERATOR.PRIMER CHARGING TOOL SETTER Work Phone: [facility] 11-04-2022 influenza virus vacc ine, unspecified formulation Analisa Nicole MD Work Phone: [facility] 12-01-2021 COVID-19 booster vaccine, age 12+ yr, bivalent (PFIZER-BIONTECH) Nv Nurse Work Phone: [facility] Work Phone: 11-16-2021 influenza, high-dose , quadrivalent vaccine (FLUZONE HIGH DOSE QUADRIVALENT) Nv Nurse Work Phone: [facility] Work Phone: 11-17-2020 COVID-19 vaccine, ag e 12+ yr (PFIZER-BIONTECH - PURPLE TOP) No Pcp [facility] 11-12-2020 influenza, high-dose , quadrivalent vaccine (FLUZONE HIGH DOSE QUADRIVALENT) No [facility] 04-16-2020 COVID-19 vaccine, ag e 12+ yr (PFIZER-BIONTECH - PURPLE TOP) No [facility] Work Phone: 03-18-2020 COVID-19 vaccine, ag e 12+ yr (PFIZER-BIONTECH - PURPLE TOP) No [facility] Work Phone: 11-12-2019 influenza, high-dose , quadrivalent vaccine (FLUZONE HIGH DOSE QUADRIVALENT) No [facility] 01-05-2019 zoster vaccine recombinant No [facility] 11-30-2018 Influenza virus vaccine [facility] 11-10-2018 influenza, high dose seasonal, preservative-free No [facility] 11-11-2017 influenza, high dose seasonal, preservative-free No [facility] 11-11-2017 tetanus and diphther ia toxoids, adsorbed, preservative free, for adult use (5 Lf of tetanus toxoid and 2 Lf of diphtheria toxoid) No [facility] 11-10-2016 influenza, high dose seasonal, preservative-free No [facility] Work Phone: 11-10-2015 influenza, high dose seasonal, preservative-free No [facility] Work Phone: 11-07-2014 influenza, high dose seasonal, preservative-free No [facility] 11-07-2014 pneumococcal conjuga te vaccine, 13 valent No [facility] 10-08-2013 pneumococcal polysaccharide vaccine, 23 valent No [facility] 11-20-2012 influenza virus vacc ine, unspecified formulation No [facility] 11-20-2011 influenza virus vacc ine, unspecified formulation No [facility] Work Phone: 08-17-2010 tetanus and diphther ia toxoids, adsorbed, preservative free, for adult use (2 Lf of tetanus toxoid and 2 Lf of diphtheria toxoid) No [facility] 12-19-2006 influenza virus vacc ine, unspecified formulation No [facility] Work Phone: 05-23-1999 pneumococcal polysaccharide vaccine, 23 valent No [facility] Work Phone: Payers Date Payer Category Payer Self-pay 2009 Medicare [id number] 2009 Medicare AETNA MEDICARE A ETNA MEDICARE PPO [id number] 2009-Present [phone] [address] [place] [address] PPO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 Patient/Guardian expressed understanding and agreed with the plan. See patient instructions. Dipak Aguilar DO [address] [place] [address] documented in this encounter [facility] 07-12-2024 Note HNO ID: [id number] Author: SHAYLA HINES APRN.PRIMER CHARGING TOOL SETTER Service: ? Author Type: Nurse Practitioner Type: [...] CHF sx with elevated BNP. April BNP 593. His weight may 16 was up about 10# from his usual, but he's been back down to baseline. Saw cardiology on 07/02. -No recent use of hydralazine prn -Denies chest pain, chronic headaches, edema -LVEF 63# November 2023 stress test, echo (I do not see updated one from external hospital reports in Mar) -ProBNP in April 23 (4 years ago [id number]) -Albumin 3.8 last -Lipid panel unremarkable, on [...] breath, to seek immediate attention. Shayla Hines APRN.[facility] 07-02-2024 Note HNO ID: [id number] Author: ANALISA NICOLE MD Service: ? Author Type: Physician Type: Progress Notes Filed: 07/02/2024 16:22 Note Text: Analisa Nicole MD Interventional Cardiology [address] [address] [phone] Chief Complaint Patient presents with: Follow Up: [...] GERD (gastroesophageal reflux disease) Melanoma (HCC) 1991 [place] [employer] Persistent atrial fibrillation (HCC) 10/11/2019 Admitted 09/05/[facility]. Followed by [facility]. PAST SURGICAL HISTORY Procedure Laterality [...] 2012 L Rotator cuff repair - bilateral [facility] PAST SURGICAL HISTORY OF plastic surgery [...] weekly Drug use: No ALLERGIES Allergen Reactions [place] Other: See Comments sneezing,runny nose [place] Cough also [place] with same reaction Mold [...] medications (more content not included)... [facility] 07-02-2024 History of Present illness Narrative Images from the original note were not included. Analisa Nicole MD Interventional Cardiology [address] [place] [address] [phone] Chief Complaint Patient presents with: Follow Up: [...] GERD (gastroesophageal reflux disease) Melanoma (HCC) 1991 [place] [employer] Persistent atrial fibrillation (HCC) 10/11/2019 Admitted 09/05/2019 [facility]. Followed by [facility]. PAST SURGICAL HISTORY Procedure Laterality [...] 2012 L Rotator cuff repair - bilateral [facility] PAST SURGICAL HISTORY OF plastic surgery [...] weekly Drug use: No ALLERGIES Allergen Reactions [place] Other: See Comments sneezing,runny nose [place] Cough also [place] with same reaction Mold [...] correct any errors. documented in this encounter [facility] 06-28-2024 Note HNO ID: [id number] Author: JUDITH GARCIA APRN.PRIMER CHARGING TOOL SETTER Service: ? Author Type: Nurse Practitioner Type: Progress Notes Filed: 06/28/2024 14:56 Note Text: 06/28/2024 Recording using [employer] software for draft documentation of the visit was discussed with the patient/authorized financial sales representative; all questions welcomed and answered. Patient/authorized financial sales representative agreed to proceed HPI: Juan [...] GERD (gastroesophageal reflux disease) Melanoma (HCC) 1990 [place] [employer] Persistent atrial fibrillation (HCC) 10/11/2019 Admitted 09/05/[facility]. Followed by [facility]. Current Outpatient Medications on File [...] to 100 mg daily; prescription sent to [facility] in [place] with a 30-day supply and refills. - [...] reviewed as needed. Follow up: Judith Garcia APRN.ESTIVEN [facility] 06-28-2024 History of Present illness Narrative 06/28/2024 Recording using [employer] software for draft documentation of the visit was discussed with the patient/authorized financial sales representative; all questions welcomed and answered. Patient/authorized financial sales representative agreed to proceed HPI: Juan [...] GERD (gastroesophageal reflux disease) Melanoma (HCC) 1991 [place] [employer] Persistent atrial fibrillation (HCC) 10/11/2019 Admitted 09/05/2019 [facility]. Followed by [facility]. Current Outpatient Medications on File [...] to 100 mg daily; prescription sent to [facility] in [place] with a 30-day supply and refills. - [...] reviewed as needed. Follow up: Judith Garcia APRN.ESTIVEN documented in this encounter [facility] 06-28-2024 Instructions Judith Garcia APRN.CNP - 06/28/2024 2:06 PM EDT Increase the losartan to 100mg daily. I sent this prescription to [facility] in [place]. Continue checking blood pressures as you have [...] once with supper. documented in this encounter [facility] 06-14-2024 Note HNO ID: [id number] Author: OMAR TREADWELL APRN.CNP Service: ? Author Type: Nurse Practitioner Type: Progress Notes Filed: 06/14/2024 16:29 Note Text: [facility] INCIDENTAL LUNG NODULE PROGRAM Impression / Recommendations 1. Lung nodule (Primary) Nature and etiology of lung nodules discussed with patient. He was referred for new RUL 14 x 12 mm nodule from 12/05/2023 CT Chest done for cough and SOB. He wintered in [place] and went to the ER for pneumonia [...] No) Subsequent imaging 04/13/2024 CTA Chest in [place] showed resolution of the nodule of concern [...] 92.1 kg (203 lb) Modified [employer] [place] Dyspnea Scale (MMRC) I get short of [...] caliber. (more content not included)... [facility] 06-13-2024 Note HNO ID: [id number] Author: JUDITH GARCIA APRN.PRIMER CHARGING TOOL SETTER Service: ? Author Type: Nurse Practitioner Type: Progress Notes Filed: 06/14/2024 11:54 Note Text: Chief Complaint Patient presents with: BP Check HPI Juan Jose Foster is a 89 year old male who presents here today for Above Complaints.. Pt was seen 05/30/24 with Judith Garcia APRN.PRIMER CHARGING TOOL SETTER. Per note: HPI Juan Jose Foster is [...] GERD (gastroesophageal reflux disease) Melanoma (HCC) 1990 [place] [employer] Persistent atrial fibrillation (HCC) 10/11/2019 Admitted 09/05/[facility]. Followed by [facility]. Previous Surgical History PAST SURGICAL [...] 2011 L Rotator cuff repair - bilateral [facility] PAST SURGICAL HISTORY OF plastic surgery [...] Family History Patient Allergies ALLERGIES Allergen Reactions [place] Other: See Comments sneezing,runny nose [place] Cough also [place] with same reaction Mold [...] table (more content not included)... [facility] 06-08-2024 Telephone encounter Note 06/08/24 Omar Treadwell requests images from [place]: CTA Chest 04/13/2024 [facility] [address] [place] [place] [phone] Keisha pushing now via powershare. Film arrived. Notified Melinda. Citlalli Bhatti RN [facility] 06-08-2024 Miscellaneous Notes 06/08/24 Omar Treadwell requests images from [place]: CTA Chest 04/13/2024 [facility] [address] [place] [place] [place] [phone] Keisha pushing now via powershare. Film arrived. Notified Melinda. Citlalli Bhatti RN [facility] documented in this encounter [facility] 06-08-2024 Telephone encounter Note Noted, thank you. Judith Garcia APRN.PRIMER CHARGING TOOL SETTER [facility] 06-08-2024 Miscellaneous Notes Noted, thank you. Judith Garcia APRN.ESTIVEN Maximo with [facility] calls to let provider know that patient [...] Tali Hogan RN documented in this encounter [facility] 06-07-2024 Telephone encounter Note Maximo with [facility] calls to let provider know that patient [...] longer weighing himself daily. Tali Hogan RN [facility] 05-31-2024 Miscellaneous Notes Pharmacy called and error made in their system and metoprolol is covered by the patient's insurance. Vale Jack RN documented in this encounter [facility] 05-31-2024 Telephone encounter Note Pharmacy called and error made in their system and metoprolol is covered by the patient's insurance. Vale Sameer, RN [facility] 05-31-2024 Telephone encounter Note Last seen in office on 09/13. Follow up scheduled for 07/02/24. Patient's request for medication is as follows: Requested Prescriptions Pending Prescriptions Disp Refills apixaban (ELIQUIS) 5 mg tab(s) 180 tablet 3 Sig: Take 1 tablet by mouth two times a day. Prescription(s) as above. Please process accordingly. Laura Theodore LPN [facility] 05-31-2024 Miscellaneous Notes Last seen in office on 09/13. Follow up scheduled for 07/02/24. Patient's request for medication is as follows: Requested Prescriptions Pending Prescriptions Disp Refills apixaban (ELIQUIS) 5 mg tab(s) 180 tablet 3 Sig: Take 1 tablet by mouth two times a day. Prescription(s) as above. Please process accordingly. Laura Theodore LPN Voicemail msg left for patient to return call to [facility] to review if medication needs to go to local pharmacy. Office phone number provided. Carly Lazo LPN Voicemail msg left for patient to return call to [facility] to review if medication needs to go to local pharmacy. Office phone number provided. Carly Lazo LPN documented in this encounter [facility] 05-31-2024 Telephone encounter Note Last seen in office on 09/12/23. Follow up scheduled for 07/02/24 Patient's request for medication is as follows: Requested Prescriptions Pending Prescriptions Disp Refills metoprolol tartrate, short acting, (LOPRESSOR) 50 mg tablet 180 tablet 3 Sig: Take 1 tablet by mouth two times a day. Prescription(s) as above. Please process accordingly. Laura Theodore LPN [facility] 05-31-2024 Miscellaneous Notes Last seen in office [...] left for patient to return call to [facility] to review if medication needs to go to local pharmacy. Office phone number provided. Carly Lazo LPN Voicemail msg left for patient to return call to [facility] to review if medication needs to go to local pharmacy. Office phone number provided. Carly Lazo LPN documented in this encounter [facility] 05-31-2024 Telephone encounter Note Voicemail msg left for patient to return call to [facility] to review if medication needs to go to local pharmacy. Office phone number provided. Carly Lazo LPN [facility] 05-31-2024 Telephone encounter Note Voicemail msg left for patient to return call to [facility] to review if medication needs to go to local pharmacy. Office phone number provided. Carly Lazo LPN [facility] 05-31-2024 Telephone encounter Note I apologize, it [...] - Controlled E11.9 Insulin: Yes Judith Garcia APRN.CNP [facility] 05-31-2024 Miscellaneous Notes I apologize, it is [...] - Controlled E11.9 Insulin: Yes Judith Garcia APRN.CNP documented in this encounter [facility] 05-30-2024 Telephone encounter Note Voicemail msg left for patient to return call to [facility] to review if medication needs to go to local pharmacy. Office phone number provided. Carly Lazo LPN [facility] 05-30-2024 Telephone encounter Note Voicemail msg left for patient to return call to [facility] to review if medication needs to go to local pharmacy. Office phone number provided. Carly Lazo LPN [facility] 05-30-2024 Instructions Judith Garcia APRN.ESTIVEN - 05/30/2024 [...] his next appt. documented in this encounter [facility] 05-30-2024 Note HNO ID: [id number] Author: JUDITH GARCIA APRN.ESTIVEN Service: ? Author [...] GERD (gastroesophageal reflux disease) Melanoma (HCC) 1991 [place] [employer] Persistent atrial fibrillation (HCC) 10/11/2019 Admitted 09/05/[facility]. Followed by [facility]. Previous Surgical History PAST SURGICAL [...] 2012 L Rotator cuff repair - bilateral [facility] PAST SURGICAL HISTORY OF plastic surgery [...] Family History Patient Allergies ALLERGIES Allergen Reactions [place] Other: See Comments sneezing,runny nose [place] Cough also [place] with same reaction Mold [...] o (more content not included)... [facility] 05-30-2024 History of Present illness Narrative [...] GERD (gastroesophageal reflux disease) Melanoma (HCC) 1991 [place] [employer] Persistent atrial fibrillation (HCC) 10/11/2019 Admitted 09/05/[facility]. Followed by [facility]. Previous Surgical History PAST SURGICAL [...] 2012 L Rotator cuff repair - bilateral [facility] PAST SURGICAL HISTORY OF plastic surgery [...] Family History Patient Allergies ALLERGIES Allergen Reactions [place] Other: See Comments sneezing,runny nose [place] Cough also [place] with same reaction Mold [...] Time: 6:36 PM documented in this encounter [facility] 05-29-2024 Telephone encounter Note Will forward to Delmi to review with /patient at office visit tomorrow Dipak Aguilar DO [facility] 05-29-2024 Miscellaneous Notes Will forward to Delmi [...] from his time acute rehab facility in [place] for hydralazine 25 mg QID as needed for systolic BP >150. states that she dis not give hydralazine today. Please advise if patient needs to keep taking lasix and about hydralazine prescription. Medication is not listed on patient's medications. Please review and advise, Maryan Torres RN documented in this encounter [facility] 05-24-2024 Telephone encounter Note Patient's calls with [...] from his time acute rehab facility in [place] for hydralazine 25 mg QID as needed for systolic BP >150. states that she dis not give hydralazine today. Please advise if patient needs to keep taking lasix and about hydralazine prescription. Medication is not listed on patient's medications. Please review and advise, Maryan Torres RN [facility] 05-22-2024 Telephone encounter Note Martina Del Angel MA [facility] 05-22-2024 Miscellaneous Notes Martina Del Angel MA Thank you for the update, agree with below. Judith Garcia APRN.ESTIVEN See below note as well from half-way. Martina physical therapist from [facility] calling today to update PT plan of [...] and was found to have leg swelling. [facility] gave them a prescription for Lasix to take for 3 days and then as needed. Pt took on the , and . states the leg swelling is much better. Still some slight swelling but so much better. She states the following BP readings: 150/90 159/103 156/115 160/114 145/107 Today 163/103 Per Martina, pt has Hydralazine on hand prescribed by hospital in [place] when he was admitted. Pt is to [...] are doing. She verbalizes understanding. Moira with [facility] calling with Nursing plan of care. Nursing will see patient 2 times per week for 1 week , then one time per week for 2 weeks for COPD education, edema monitoring and A-Fib management. No call back needed if provider is agreeable to plan. Gabrielle Wurst, RN documented in this encounter [facility] 05-22-2024 Telephone encounter Note Thank you for the update, agree with below. Judith Garcia APRN.PRIMER CHARGING TOOL SETTER [facility] 05-22-2024 Telephone encounter Note See below note as well from half-way. Martina physical therapist from [facility] calling today to update PT plan [...] states the following BP readings: 150/90 159/103 th 156/[address] 30[address] 160/114 [address] 145/107 Today 163/103 Per Martina, pt has Hydralazine on hand prescribed by hospital in [place] when he was admitted. Pt is to [...] leg swelling are doing. She verbalizes understanding. [facility] 05-21-2024 Telephone encounter Note Moira with [facility] calling with Nursing plan of care. Nursing will see patient 2 times per week for 1 week , then one time per week for 2 weeks for COPD education, edema monitoring and A-Fib management. No call back needed if provider is agreeable to plan. Gabrielle Friedman RN [facility] 05-17-2024 Telephone encounter Note [facility] called and asked to have last OV noted faxed over. Faxed to fax # [phone]. [facility] 05-17-2024 Miscellaneous Notes [facility] called and asked to have last OV noted faxed over. Faxed to fax # [phone]. documented in this encounter [facility] 05-17-2024 Telephone encounter Note Spoke with patients daughter gave information provided . She voices understanding. She wishes to excelsior picker order for the stair lift . Took to old med recs for excelsior picker. [facility] 05-17-2024 Miscellaneous Notes Spoke with patients daughter gave information provided . She voices understanding. She wishes to excelsior picker order for the stair lift . Took to old med recs for excelsior picker. Please call patient/family and let them know [...] 40 minutes. 05/30/24. Thank you, Radha Berman APRN.PRIMER CHARGING TOOL SETTER documented in this encounter [facility] 05-17-2024 Note HNO ID: [id number] Author: ANANYA RODRIGUEZ RDMS Service: ? Author Type: Collateral Specialist Type: Progress Notes Filed: 05/18/2024 08:17 Note [...] PATIENT PRESENTS WITH AN IMPLANTABLE OR ATTACHED CARD CHECKER: No RADIOLOGY DEPARTMENT: Ultrasound PERIPHERAL IV DATA: Not applicable SIGNED BY: Ananya Rodriguez RDMS RVT May 18, 2024 8:[address] [facility] 05-17-2024 Telephone encounter Note Please call [...] 40 minutes. 05/30/24. Thank you, Radha Berman APRN.PRIMER CHARGING TOOL SETTER [facility] 05-16-2024 History of Present illness Narrative Chief Complaint Patient presents with: needs referral for pt and ot and uology referral HPI Juan Jose Foster is a 89 year old male who presents here today for Above Complaints. Juan Jose is an established patient of Dr. Jeff DO. Pt was admitted to [facility] in [place] on 04/13 and 04/15. 04/13-- dx with [...] facility on 05/11 and drove back to [place] with and daughter. Hx of CVA in December. Never followed up with neurology d/t going to [place] for the winter months just after this. [...] Family reports legs elevated entire drive from [place] Denies any SOB. Pt is on eliquis since stroke. Needs assistance at home. Currently lives at home back in [place] with . Daughter lives nearby to help. Does not want to move into assistive living or usp. Daughter agrees if they can get PT, OT, home health aide, and detention to come to home, he should be [...] on any diuretic. Traveled by car from [place] to [place] yesterday. Reports having legs elevated during the [...] GERD (gastroesophageal reflux disease) Melanoma (HCC) 1991 [place] [employer] Persistent atrial fibrillation (HCC) 10/11/2019 Admitted 09/05/[facility]. Followed by [facility]. Previous Surgical History PAST SURGICAL [...] 2012 L Rotator cuff repair - bilateral [facility] PAST SURGICAL HISTORY OF plastic surgery [...] Family History Patient Allergies ALLERGIES Allergen Reactions Clearwater Other: See Comments sneezing,runny nose [place] Cough also cyprus with same reaction Mold [...] Completed Pneumococcal Vaccine: 50+ Completed Data reviewed [facility] admissions [facility] Discharge Summary -- scanned into chart. ASSESSMENT/PLAN: 1. Hospital discharge follow-up - ICD9: V67.59, ICD10: Z09 (primary diagnosis) Lab work as below. US DVT and start short burst of lasix, see below plan. Pt needs more assistance in home, see below plan. - [facility] - PATIENT LIFT, ELECTRIC - FUROSEMIDE 20 MG TABLET - COMPREHENSIVE METABOLIC PANEL - COMPLETE BLOOD COUNT AND DIFFERENTIAL - HEMOGLOBIN A1C - LIPID PANEL, FASTING - THYROID STIMULATING HORMONE - CONSULT TO NEUROLOGY - NT PRO BNP - US DVT LOWER BILATERAL - PATIENT LIFT, ELECTRIC 2. Asthma-COPD overlap syndrome (HCC) - ICD9: 493.20, ICD10: J44.89 Improvement. - [facility] - PATIENT LIFT, ELECTRIC - PATIENT LIFT, ELECTRIC 3. Chronic respiratory failure with hypoxia (HCC) - ICD9: 518.83, 799.02, ICD10: J96.11 Improving since discharge. - [facility] - PATIENT LIFT, ELECTRIC - PATIENT LIFT, ELECTRIC 4. Decreased activities of daily living (ADL) - ICD9: V49.89, ICD10: Z78.9 Needs assistance at home with bathing, medication management, PT, and OT. Ordered detention, PT, OT, and home health aide to [facility]. Pt will reach out by Tuesday if they do not hear anything from [facility]. - [facility] - PATIENT LIFT, ELECTRIC - PATIENT LIFT, ELECTRIC 5. Bilateral leg edema - ICD9: 782.3, ICD10: R60.0 US DVT d/t recent long car travel from [place]. L much more swollen than R. Lasix rx x 3 days and then let us know via mychart if swelling returns within a week. RTO in 2 weeks with Judith to reassess swelling and lab work. May need to consider daily diuretic. - [facility] - PATIENT LIFT, ELECTRIC [...] Needs assistance at home. Ordered PT, OT, detention, and home health aide. Mechanical lift chair up stairs needed x2 to help independence d/t still living at home with . Long discussion about considering assisted living or usp if unable to manage with all of these assisted resources. Daughter agrees but does not think this is needed at the moment. - PATIENT LIFT, ELECTRIC 9. Unsteady gait - ICD9: 781.2, ICD10: R26.81 Needs assistance at home. Ordered PT, OT, detention, and home health aide. Mechanical lift chair up stairs needed x2 to help independence d/t still living at home with . Long discussion about considering assisted living or usp if unable to manage with all of these assisted resources. Daughter agrees but does not think this is needed at the moment. - PATIENT LIFT, ELECTRIC Corinnexuan Barrera RTO in 2 weeks with Judith [...] coordinating care and coordinating care. Radha Berman APRN.CNP [address] [place] [address] documented in this encounter [facility] 05-16-2024 Note HNO ID: [id number] Author: RADHA BERMAN APRN.CNP Service: ? Author Type: Nurse Practitioner Type: Progress Notes Filed: 05/16/2024 18:48 Note Text: Chief Complaint Patient presents with: needs referral for pt and ot and uology referral HPI Juan Jose Foster is a 89 year old male who presents here today for Above Complaints. Juan Jose is an established patient of Dr. Jeff DO. Pt was admitted to [facility] in [place] on 04/13 and 04/15. 04/13-- dx with [...] facility on 05/11 and drove back to [place] with and daughter. Hx of CVA in December. Never followed up with neurology d/t going to [place] for the winter months just after this. [...] Family reports legs elevated entire drive from [place] Denies any SOB. Pt is on eliquis since stroke. Needs assistance at home. Currently lives at home back in [place] with . Daughter lives nearby to help. Does not want to move into assistive living or usp. Daughter agrees if they can get PT, OT, home health aide, and detention to come to home, he should be [...] on any diuretic. Traveled by car from [place] to [place] yesterday. Reports having legs elevated during the [...] GERD (gastroesophageal reflux disease) Melanoma (HCC) 1991 [place] [employer] Persistent atrial fibrillation (HCC) 10/11/2019 Admitted 09/05/2019 [facility]. Followed by [facility]. Previous Surgical History PAST SURGICAL [...] B, (more content not included)... [facility] 02-07-2024 Telephone encounter Note Patient phones requesting refills as follows: Requested Prescriptions Pending Prescriptions Disp Refills ELIQUIS 5 mg tab(s) [Pharmacy Med Name: ELIQUIS TAB 5MG] 180 tablet 0 Sig: TAKE 1 TABLET TWICE A DAY Please review and advise. Heather Bennett MA [facility] 02-07-2024 Miscellaneous Notes Patient phones requesting refills as follows: Requested Prescriptions Pending Prescriptions Disp Refills ELIQUIS 5 mg tab(s) [Pharmacy Med Name: ELIQUIS TAB 5MG] 180 tablet 0 Sig: TAKE 1 TABLET TWICE A DAY Please review and advise. Heather Bennett MA documented in this encounter [facility] 01-31-2024 Telephone encounter Note Patient called and given the below results. Vale Jack RN [facility] 01-31-2024 Miscellaneous Notes Patient called and given the below results. Vale Jack RN ----- Message from Denae Villareal RN sent at 01/31/2024 12:47 PM EST ----- ----- Message ----- From: Analisa Nicole MD Sent: 01/31/2024 11:59 AM EST To: Denae Poole RN Normal stress Please inform patient mar documented in this encounter [facility] 01-31-2024 Telephone encounter Note ----- Message from Denae Villareal RN sent at 01/31/2024 12:47 PM EST ----- ----- Message ----- From: Analisa Nicole MD Sent: 01/31/2024 11:59 AM EST To: Denae Poole RN Normal stress Please inform patient mar [facility] 01-10-2024 Telephone encounter Note Pt. informed. [facility] 01-10-2024 Miscellaneous Notes Pt. informed. Please have [...] into pharmacy in its place. Pt is [facility] documented in this encounter [facility] 01-10-2024 Telephone encounter Note Please have patient stop the lipitor and trial on rx as below Dipak Aguilar DO The following approved medication requests have been transmitted electronically. Requested Prescriptions Signed Prescriptions Disp Refills rosuvastatin (CRESTOR) 20 mg tablet 90 tablet 1 Sig: Take 1 tablet by mouth daily at bedtime. Authorizing Provider: DIPAK AGUILAR DO [facility] 01-09-2024 Telephone encounter Note Pt calls states has been trying to take the atorvastatin but keeps getting terrible diarrhea. Asking if something different could be called into pharmacy in its place. Pt is [facility] wanting this called to [facility] . [facility] 01-04-2024 Telephone encounter Note Clearance scanned in from [place] [facility] placed in Dr. Mar meade to be reviewed. Nuzhat Escobar January 04, 2024 2:53 PM [facility] 01-04-2024 Miscellaneous Notes Clearance scanned in from [facility] placed in Dr. Mar maede to be reviewed. Nuzhat Escobar January 04, 2024 2:53 PM documented in this encounter [facility] 12-13-2023 Telephone encounter Note Noted, thank you. Judith Garcia APRN.PRIMER CHARGING TOOL SETTER [facility] 12-13-2023 Miscellaneous Notes Noted, thank you. Judith Garcia APRN.CNP Pt notified. He received an email from the lung nodule clinic but states he leaves tomorrow for [place] for 6 months and will call to [...] Otherwise everything else looks good. Judith Garcia APRN.CNP documented in this encounter [facility] 12-13-2023 Telephone encounter Note Pt notified. He received an email from the lung nodule clinic but states he leaves tomorrow for [place] for 6 months and will call to set up appt when he returns. Genia Varner MA [facility] 12-13-2023 Telephone encounter Note Please let him know that I received the results of his chest CT. It shows a new nodule in his right upper lobe. Radiology is recommending a referral to the lung nodule clinic, so I am placing this. I believe they will call him to schedule his appointment. Otherwise everything else looks good. Judith Garcia APRN.CNP [facility] 12-12-2023 Note HNO ID: [id number] Author: VALE JACK RN Service: ? Author [...] Vale Jack RN Reversal agent used:None LOT [id number] 06/16 IV SITE: IV palced by nuclear tecnologist POST EXAM PIV STATUS: Discontinued by Mri Technician PATIENT DISCHARGED TO: Nuclear Medicine Department for post stress imaging A Diagnostic radioactive procedure has taken place, with no further precautions necessary other than routine body substance precautions. More information regarding radiation safety can be found using this link: [email or web address]/Rad%2 0Protection%20-% 20Diagnostic%20Nuclear%20Medicin e%20Procedures.pdf SIGNATURE: Vale Jack RN PATIENT NAME:Juan Jose Foster DATE: 12/12/23 TIME: 3:[address] [facility] 12-12-2023 History of Present illness Narrative [...] Vale Jack RN Reversal agent used:None LOT [id number] 06/16 IV SITE: IV palced by nuclear tecnologist POST EXAM PIV STATUS: Discontinued by Mri Technician PATIENT DISCHARGED TO: Nuclear Medicine Department for post stress imaging A Diagnostic radioactive procedure has taken place, with no further precautions necessary other than routine body substance precautions. More information regarding radiation safety can be found using this link: [email or web address]/files/Rad%2 0Protection%20-%20Diagnostic%20N uclear%20Medicine%20Procedures.p df SIGNATURE: Vale Jack RN PATIENT NAME:Juan Jose Foster DATE: 12/12/23 TIME: 3:56 PM documented in this encounter [facility] 12-12-2023 History of Present illness Narrative RADIOLOGY [...] PATIENT PRESENTS WITH AN IMPLANTABLE OR ATTACHED CARD CHECKER: n/a CREATININE: Creatinine Date Value Ref Range [...] Discontinued PROCEDURE TYPE: NM Stress: 8.7 mCi [id number]-Fnttkfk was administered IV for Rest Imaging at 10:03 by Nessa Ingram. 28.4 mCi Es52n-Zhtqfem was administered IV for Stress Imaging at 11:37 by Nessa Ingram. PATIENT DISCHARGED TO: Ambulatory patient, left [place] department area.. A Diagnostic radioactive procedure has taken place, with no further precautions necessary other than routine body substance precautions. More information regarding radiation safety can be found using this link: [email or web address]%2 0Protection%20-%20Diagnostic%20N uclear%20Medicine%20Procedures.p df SIGNATURE: DALTON Cardona) PATIENT NAME: Juan Jose Foster DATE: December 12, 2023 TIME: 12:35 AM PAGER/CONTACT #: documented in this encounter [facility] 12-12-2023 Note HNO ID: [id number] Author: NESSA INGRAM RT (R) Service: Nuclear Medicine Author Type: Technologist Type: [...] PATIENT PRESENTS WITH AN IMPLANTABLE OR ATTACHED CARD CHECKER: n/a CREATININE: Creatinine Date Value Ref Range [...] Discontinued PROCEDURE TYPE: NM Stress: 8.7 mCi [id number]-Anjbmfr was administered IV for Rest Imaging at 10:03 by Nessa Ingram. 28.4 mCi Ly05f-Ygwwlmj was administered IV for Stress Imaging at 11:37 by Nessa Ingram. PATIENT DISCHARGED TO: Ambulatory patient, left [place] department area.. A Diagnostic radioactive procedure has taken place, with no further precautions necessary other than routine body substance precautions. More information regarding radiation safety can be found using this link: [email or web address]%[email or web address] 0Protection%20-% 20Diagnostic%20Nuclear%20Medicin e%20Procedures.pdf SIGNATURE: RT Dulce(R) PATIENT NAME: Juan Jose Foster DATE: December 12, 2023 TIME: 12:35 AM PAGER/CONTACT #: [facility] 12-12-2023 Telephone encounter Note Patient has a stress test this morning at 10am. He mistakenly took his Atorvastatin and was not sure if he should reschedule. [place] is leaving out of [place] 6 months on Tuesday as well. Please call patient back at [phone]. Ananya Carter LPN [facility] 12-12-2023 Miscellaneous Notes Patient has a stress test this morning at 10am. He mistakenly took his Atorvastatin and was not sure if he should reschedule. [place] is leaving [place] 6 months on Tuesday as well. Please call patient back at [phone]. Ananya Carter LPN documented in this encounter [facility] 12-06-2023 Telephone encounter Note Patient active MyChart. Patient notified via [employer] message. Jair Ziegler MA [facility] 12-06-2023 Miscellaneous Notes Patient active MyChart. Patient notified via [employer] message. Jair Ziegler MA Please inform patient that his iron levels are normal Dipak Aguilar DO documented in this encounter [facility] 12-06-2023 Telephone encounter Note Please inform patient that his iron levels are normal Dipak Aguilar DO [facility] 12-05-2023 Note HNO ID: [id number] Author: MARII BLAKELY RPFT Service: ? Author Type: Respiratory Therapist Type: Progress Notes Filed: 12/05/2023 13:32 Note Text: PULM FUNCTION: Provider: Judith Garcia APRN.PRIMER CHARGING TOOL SETTER Assisting Tech: Marii Blakely RPFT Spirometry w/BD: 1 LV - Box: [address] [facility] 12-05-2023 History of Present illness Narrative PULM FUNCTION: Provider: Judith Garcia APRN.PRIMER CHARGING TOOL SETTER Assisting Tech: Marii Blakely RPFT Spirometry w/BD: 1 LV - Box: 1 documented in this encounter [facility] 12-05-2023 History of Present illness Narrative Radiology [...] PATIENT PRESENTS WITH AN IMPLANTABLE OR ATTACHED CARD CHECKER: No RADIOLOGY DEPARTMENT: CT; Exam(s) Completed: Chest PERIPHERAL IV DATA: Not applicable SIGNED BY: RT Radha(R) December 05, 2023 2:42 PM documented in this encounter [facility] 12-05-2023 Note HNO ID: [id number] Author: KEISHA CALDERON RT(Bel) Service: ? Author Type: Construction Plumber Type: Progress Notes Filed: 12/05/2023 14:42 Note [...] PATIENT PRESENTS WITH AN IMPLANTABLE OR ATTACHED CARD CHECKER: No RADIOLOGY DEPARTMENT: CT; Exam(s) Completed: Chest PERIPHERAL IV DATA: Not applicable SIGNED BY: RT Radha(R) December 05, 2023 2:[address] [facility] 11-29-2023 Note HNO ID: [id number] Author: JOSE, JUDITH, CRIMPING PRESS OPERATOR.PRIMER CHARGING TOOL SETTER Service: ? Author Type: Nurse Practitioner Type: [...] his doctor during the winter months in [place]. States they always say everything is fine. [...] GERD (gastroesophageal reflux disease) Melanoma (HCC) 1991 [place] [employer] Persistent atrial fibrillation (HCC) 10/11/2019 Admitted 09/05/2019 [facility]. Followed by [facility]. Previous Surgical History PAST SURGICAL [...] 2011 L Rotator cuff repair - bilateral [facility] PAST SURGICAL HISTORY OF plastic surgery [...] Family History Patient Allergies ALLERGIES Allergen Reactions [place] Other: See Comments sneezing,runny nose [place] Cough also cy[place] with same reaction Mold [...] nour (more content not included)... [facility] 11-29-2023 History of Present illness Narrative [...] his doctor during the winter months in [place]. States they always say everything is fine. [...] GERD (gastroesophageal reflux disease) Melanoma (HCC) 1991 [place] [employer] Persistent atrial fibrillation (HCC) 10/11/2019 Admitted 09/05/2019 [facility]. Followed by [facility]. Previous Surgical History PAST SURGICAL [...] 2012 L Rotator cuff repair - bilateral [facility] PAST SURGICAL HISTORY OF plastic surgery [...] Family History Patient Allergies ALLERGIES Allergen Reactions [place] Other: See Comments sneezing,runny nose [place] Cough also cy[place] with same reaction Mold [...] ICD10: Z13.39 - ANXIETY SCREENING Judith Garcia APRN.PRIMER CHARGING TOOL SETTER Images from the original note were not [...] prevention plan provided documented in this encounter [facility] 11-29-2023 Note HNO ID: [id number] Author: JUDITH GARCIA APRN.CNP Service: ? Author [...] - Personalized prevention plan provided [facility] 11-23-2023 History of Present illness Narrative [...] GERD (gastroesophageal reflux disease) Melanoma (HCC) 1991 [place] [employer] Persistent atrial fibrillation (HCC) 10/11/2019 Admitted 09/05/2019 [facility]. Followed by [facility]. PAST SURGICAL HISTORY Procedure Laterality [...] 2012 L Rotator cuff repair - bilateral [facility] PAST SURGICAL HISTORY OF plastic surgery [...] Comment: occassional-once weekly Drug use: No ALLERGIES: [place], [place], and Mold MEDICATIONS: metoprolol tartrate, short acting, [...] which included preparing to see the patient, cycd-sk-eutj patient care, completing clinical documentation, obtaining and/or [...] TIME: 8:05 AM documented in this encounter [facility] 11-23-2023 Note HNO ID: [id number] Author: JEFFREY ZURITA MD Service: ? Author [...] weeding (more content not included)... [facility] 11-23-2023 History of Present illness Narrative [...] PATIENT PRESENTS WITH AN IMPLANTABLE OR ATTACHED CARD CHECKER: No RADIOLOGY DEPARTMENT: General X-ray: Exam(s) Completed: [...] PATIENT PRESENTS WITH AN IMPLANTABLE OR ATTACHED CARD CHECKER: No RADIOLOGY DEPARTMENT: General X-ray: Exam(s) Completed: Spine X-Ray(s): Lumbar AP / LAT PERIPHERAL IV DATA: Not applicable SIGNED BY: Anat Alarcon November 23, 2023 8:59 AM documented in this encounter [facility] 11-23-2023 Note HNO ID: [id number] Author: DEBRA FISHER Tech Service: ? Author Type: Construction Plumber Type: Progress Notes Filed: 11/23/2023 07:47 Note [...] PATIENT PRESENTS WITH AN IMPLANTABLE OR ATTACHED CARD CHECKER: No RADIOLOGY DEPARTMENT: General X-ray: Exam(s) Completed: Pelvis X-Ray: Pelvis with Hip Bilateral and Wt. Bearing Lower Extremity X-Ray(s): Knee, AP / Lat / Tunne / Merchant Right and Wt. Bearing PERIPHERAL IV DATA: Not applicable SIGNED BY: Anat Alarcon November 23, 2023 7:46 AM [facility] 11-23-2023 Note HNO ID: [id number] Author: DEBRA FISHER Tech Service: ? Author Type: Construction Plumber Type: Progress Notes Filed: 11/23/2023 08:59 Note [...] PATIENT PRESENTS WITH AN IMPLANTABLE OR ATTACHED CARD CHECKER: No RADIOLOGY DEPARTMENT: General X-ray: Exam(s) Completed: Spine X-Ray(s): Lumbar AP / LAT PERIPHERAL IV DATA: Not applicable SIGNED BY: Anat Alarcon November 23, 2023 8:59 AM [facility] 11-14-2023 Telephone encounter Note Patient's request for medication is as follows: Requested Prescriptions Pending Prescriptions Disp Refills metoprolol tartrate, short acting, (LOPRESSOR) 50 mg tablet 180 tablet 3 Sig: Take 1 tablet by mouth two times a day. Last visit 09/12/23. Next visit 07/02/24. Prescription(s) as above. Please process accordingly. Denae Poole RN [facility] 11-14-2023 Miscellaneous Notes Patient's request for medication is as follows: Requested Prescriptions Pending Prescriptions Disp Refills metoprolol tartrate, short acting, (LOPRESSOR) 50 mg tablet 180 tablet 3 Sig: Take 1 tablet by mouth two times a day. Last visit 09/12/23. Next visit 07/02/24. Prescription(s) as above. Please process accordingly. Denae Poole RN documented in this encounter [facility] 11-02-2023 Telephone encounter Note Labs ordered Dipak Aguilar DO [facility] 11-02-2023 Miscellaneous Notes Labs ordered Dipak Aguilar DO documented in this encounter [facility] 11-01-2023 Telephone encounter Note Patient phones requesting refills as follows: Requested Prescriptions Pending Prescriptions Disp Refills apixaban (ELIQUIS) 5 mg tab(s) 180 tablet 3 Sig: Take 1 tablet by mouth two times a day. Shakira 08/31/2022 Nov Not scheduled Labs 10/2022 Please review and advise. Mona Mayen MA [facility] 11-01-2023 Miscellaneous Notes Patient phones requesting refills as follows: Requested Prescriptions Pending Prescriptions Disp Refills apixaban (ELIQUIS) 5 mg tab(s) 180 tablet 3 Sig: Take 1 tablet by mouth two times a day. Shakira 08/31/2022 Nov Not scheduled Labs 10/2022 Please review and advise. Mona Mayen MA documented in this encounter [facility] 10-07-2023 Telephone encounter Note Pt informed. Taken to med rec. Carrie Del Angel MA [facility] 10-07-2023 Miscellaneous Notes Pt informed. Taken to med rec. Carrie Del Angel MA Letter is in the outbox in our office. Judith Garcia APRN.PRIMER CHARGING TOOL SETTER Pt called asking on status of handicap [...] Tiffany Beauchamp LPN documented in this encounter [facility] 10-06-2023 Telephone encounter Note Letter is in the outbox in our office. Judith Garcia APRN.PRIMER CHARGING TOOL SETTER [facility] Work Phone: 10-05-2023 Telephone encounter Note Patient called and notified. Vale Jack RN [facility] 10-05-2023 Miscellaneous Notes Patient called and notified. Vale Jack RN Mychart message sent to inform. Heather Bennett MA Left message asking patient to call back for results. Vale Jack RN ----- Message from Analisa Nicole MD sent at 09/28/2023 2:17 PM EDT ----- ECHO IS NORMAL Please inform patient mar documented in this encounter [facility] 10-05-2023 Telephone encounter Note Pt called asking on status of handicap placard. Is hoping to get it by this weekend. Please advise \. Tiffany Beauchamp LPN [facility] 10-04-2023 Telephone encounter Note Mychart message sent to inform. Heather Bennett MA [facility] [facility] 10-[facility]23 Telephone encounter Note Pt states he was hospitalized last week for TIA, expressive aphasia & afib. He reports he gets out of breath quickly. Pt is asking if he is eligible for a handicap placard? If so, call when ready & pt will pick it up. Tiffany Beauchamp LPN [facility] 09-28-2023 Telephone encounter Note Left message asking patient to call back for results. Vale Jack RN [facility] 09-28-2023 Telephone encounter Note ----- Message from Analisa Nicole MD sent at 09/28/2023 2:17 PM EDT ----- ECHO IS NORMAL Please inform patient mar [facility] 09-12-2023 History of Present illness Narrative Images from the original note were not included. Analisa Nicole MD Interventional Cardiology [address] [place] [address] [phone] Chief Complaint Patient presents with: New Patient [...] GERD (gastroesophageal reflux disease) Melanoma (HCC) 1991 [place] Safety Person Persistent atrial fibrillation (HCC) 10/11/2019 Admitted 09/05/[facility]. Followed by [facility]. PAST SURGICAL HISTORY Procedure Laterality [...] 2011 L Rotator cuff repair - bilateral [facility] PAST SURGICAL HISTORY OF plastic surgery [...] weekly Drug use: No ALLERGIES Allergen Reactions [place] Other: See Comments sneezing,runny nose [place] Cough also [place] with same reaction Mold [...] ICD10: I48.21 Rate control and anticoagulation with Celiaquis Analisa Nicole MD Follow up planning: ONE YEAR Electronically signed by Analisa Nicole MD on September 12, 2023, 11:01 AM The above note was partially created using a dictation recognition software. A reasonable attempt has been made to correct any errors. documented in this encounter [facility] 06-24-2023 Instructions Sharath Issa MD - 06/24/2023 [...] doctors treat erectile dysfunction? The type of medical claims assistant who treats ED will depend on the [...] widely used and accepted since the early . The three most common medicines are prostaglandin [...] penile injection therapy. documented in this encounter [facility] 06-24-2023 Note HNO ID: [id number] Author: SHARATH ISSA MD Service: ? Author Type: Physician Type: Procedures Filed: 06/27/2023 08:06 Note Text: CYSTOSCOPY PROCEDURE NOTE: 85400-tmrfc/fulg 77970-rhxtf,bx 42396--hfnup/complex 94121--yycop 89615--efhgpvlt cath 03349-jlogd/dilate BLADDER IRRIGATION, SIMPLE, LAVAG [[id number] Juan Jose Foster is a 88 year old male who presents for cystoscopy. Pt ID verified with patient: yes Procedure verified with patient: yes Procedure confirmed with physician and customer support technician: yes Special equipment-cystoscope Dx: UNIVERSAL PROTOCOL / [...] progress note for plans Sharath Issa MD [facility] 06-24-2023 Procedure note Procedure(s): CYSTOSCOPY Pre-Procedure Diagnose(s): Bladder neck contracture Post-Procedure Diagnose(s): Bladder neck contracture CYSTOSCOPY PROCEDURE NOTE: 31465-qulpt/fulg 07583-kjddt,bx 33380--pyccg/complex 90056--ofvjb 02471--uhcbzhkt cath 59044-bevfv/dilate BLADDER IRRIGATION, SIMPLE, LAVAG [[id number] Juan Jose Foster is a 88 year old male who presents for cystoscopy. Pt ID verified with patient: yes Procedure verified with patient: yes Procedure confirmed with physician and customer support technician: yes Special equipment-cystoscope Dx: UNIVERSAL PROTOCOL / [...] progress note for plans Sharath Issa MD T [facility] 06-24-2023 Procedure note Procedure(s): CYSTOSCOPY Pre-Procedure Diagnose(s): Bladder neck contracture Post-Procedure Diagnose(s): Bladder neck contracture CYSTOSCOPY PROCEDURE NOTE: 72326-vviai/fulg 31823-pasff,bx 33600--fekqi/complex 44002--kfvis 98868--xmopierv cath 84733-tizfc/dilate BLADDER IRRIGATION, SIMPLE, LAVAG [[id number] Juan Jose Foster is a 88 year old male who presents for cystoscopy. Pt ID verified with patient: yes Procedure verified with patient: yes Procedure confirmed with physician and customer support technician: yes Special equipment-cystoscope Dx: UNIVERSAL PROTOCOL / [...] Sharath Issa MD documented in this encounter [facility] 06-24-2023 Note HNO ID: [id number] Author: KARLEE SHEETS MA Service: ? Author Type: Ocularist Type: Progress Notes Filed: 06/27/2023 08:06 Note Text: Manager R D present:Karlee Sheets MA [facility] 06-24-2023 Note HNO ID: [id number] Author: SHARATH ISSA MD Service: ? Author [...] hung up He is going back to [place] in a few weeks and he knows to reconnect with urology there if he has problems Could always consult with Dr. Summers or Dr. Yamile Trujillo at [facility] who are stricture specialists and he [...] shortness of breath We will schedule at [facility] Bladder scan/postvoid residual-80 cc approximate 06/29/2022 CC: marcy Saw me last noted below and had laser TURP Did well afterwards but then having more trouble so underwent TURP in December 2021 in [place] and did well but over the last [...] frequency but drink (more content not included)... [facility] 06-24-2023 History of Present illness Narrative Manager R D present:Karlee Sheets MA ESTABLISHED PATIENT OFFICE VISIT PATIENT [...] hung up He is going back to [place] in a few weeks and he knows to reconnect with urology there if he has problems Could always consult with Dr. Summers or Dr. Yamile Trujillo at [facility] who are stricture specialists and he [...] also Discussed options and will take to [facility] tomorrow for cystoscopy and urethral [...] shortness of breath We will schedule at [facility] Bladder scan/postvoid residual-80 cc approximate 06/29/2022 CC: marcy Saw me last noted below and had laser TURP Did well afterwards but then having more trouble so underwent TURP in December 2021 in [place] and did well but over the last [...] are not tender. Urology Procedures: June 24, [id number]-iruqmaoefm-tkapxqj without stricture and get through prostate apex and mid prostate see narrow area with ledge at 6:00 once again and distal snug so I cannot get the scope through it easily but I can see through in the bladder neck appears open 12/16/20228325-Vjzzbzoisr-bwylcaf without stricture and I get through prostatic [...] oclock A guide wire was advanced-Dilation using zegfeg32- sounds up to 26 F October 19, [id number]-xyzxgwuxcp-zjnbtev open and apex and mid prostate open but then small hole near 12 o'clock position towards the bladder neck and at 6 o'clock position couple of small holes I think I can see through to the bladder September 14, 20229835-ltuvuopkem-qqrl recurrence of contracture just distal to the bladder neck and the prostate and with a little force passed the scope through it and dilated this very short area of contracture and minimal residual urine August 05, 2022-cystoscopy, dilation, transurethral resection bladder mkjt-Iuuqpgiyu-leypbvktbky inflamed benign urothelial mucosa with dystrophic microcalcifications July 20, [id number]-Xebaggvpbu-pw urethral stricture but just inside verumontanum I [...] (no units) Date Value 10/21/2016 neg Specific Waterflow, Ur (no units) Date Value 10/21/2016 1.025 [...] GERD (gastroesophageal reflux disease) Melanoma (HCC) 1991 [place] Safety [employer] Persistent atrial fibrillation (HCC) 10/11/2019 Admitted 09/05/[facility]. Followed by [facility]. FAMILY HISTORY Problem Relation Age [...] may be inappropriate. documented in this encounter [facility] 05-18-2023 Miscellaneous Notes Patient called requesting the following refill. Requested Prescriptions Pending Prescriptions Disp Refills alfuzosin SR (UROXATRAL) 10 mg 24 hr tablet [Pharmacy Med Name: Alfuzosin HCl ER 10 MG Oral Tablet Extended Release 24 Hour] 90 tablet 0 Sig: Take 1 tablet by mouth once daily Patient last appointment: Visit date not found Patient Phone numbers: [phone] (home) Request is for script(s) to be escript to pharmacy. Mariana Clayton MA documented in this encounter [facility] 05-02-2023 History of Present illness Narrative ACM LOW RN Patient identified by name and date of . Reason for review or outreach: Chart Review Low Priority Emergency Department Utilization Utilization in past 6 months: # Occurrences Date Last Occurrence Hospital Admission Hospital Observation ED SNF / Acute Rehab / LTAC ED DIAGNOSES/REASON(S) FOR ED USE: OTHER FINDINGS/SUMMARY: Pt attributed to [facility]. No action needed Patient Attributed To: ANDRY Payer: Rory MARS Action Taken: No action needed Contact made with patient: No, Chart review only. Signature: Mini Saldaña RN documented in this encounter [facility] 11-19-2022 Miscellaneous Notes Addended by: RADHA BERMAN on: 11/19/2022 03:14 PM Modules accepted: Orders The following approved medication requests have been transmitted electronically. Requested Prescriptions Signed Prescriptions Disp Refills omeprazole (PRILOSEC) 20 mg capsule 90 capsule 0 Sig: Take 1 capsule by mouth once daily. 1/2 hr before meal. Authorizing Provider: RADHA BERMAN APRN.CNP Patient is calling back in stating that [...] (PRILOSEC) 20 mg capsule Contact patient at [phone] when this has been completed. Kate Wetzel Yes, OK to take 2 tablets if needed. The following approved medication requests have been transmitted electronically. Requested Prescriptions Signed Prescriptions Disp Refills omeprazole (PRILOSEC) 20 mg capsule 60 capsule 2 Sig: Take 1 capsule by mouth two times a day as needed. 1/2 hr before meal. Authorizing Provider: RADHA BERMAN APRN.PRIMER CHARGING TOOL SETTER Call to pt and notified him of [...] panel looks good. Thank you, Radha Berman APRN.PRIMER CHARGING TOOL SETTER documented in this encounter [facility] 11-01-2022 Miscellaneous Notes Patient phones requesting refills [...] 08/31/2022 NOV 09/01/2023 documented in this encounter [facility] 10-26-2022 Nurse Note Patient in for CIC teaching. Given male CIC patient education sheet. Instructed on proper technique and s/s of infection, cath after trying to void, how to track. Verbalized understanding to all instruction. Patient able to cath self with nurse instruction/assistance. Used 16 salvadorean coude catheter. Informed patient that he is to CIC once daily. Samples given. Georgie Hansen, RN documented in this encounter [facility] 10-21-2022 Miscellaneous Notes Scheduled for both appointments. Jeffrey Rdz Left pt vm re: Dr. Issa's message below. He needs scheduled for 2 appts. Asya S/pdilation P: see me for cysto about 4 weeks See nurse next week to show CIC which he will do once each day documented in this encounter [facility] 10-19-2022 Instructions Sharath Issa MD - 10/19/2022 10:47 AM EDT INSTRUCTIONS FROM DR. ISSA: Plan on cystoscopy with urethral dilation tomorrow at [facility] documented in this encounter [facility] 10-19-2022 Procedure note Procedure(s): CYSTOSCOPY Pre-Procedure Diagnose(s): Slow urinary stream Post-Procedure Diagnose(s): Slow urinary stream CYSTOSCOPY PROCEDURE NOTE: 82560-vqasd/fulg 60084-lyisc,bx 46254--atydu/complex 71030--hrtar 24994--tcaeplfu cath 75067-mcnpb/dilate BLADDER IRRIGATION, SIMPLE, LAVAG [[id number] Juan Jose Foster is a 87 year old male who presents for cystoscopy. Pt ID verified with patient: yes Procedure verified with patient: yes Procedure confirmed with physician and customer support technician: yes Special equipment-cystoscope UNIVERSAL PROTOCOL / SAFETY [...] Sharath Issa MD documented in this encounter [facility] 10-19-2022 History of Present illness Narrative ESTABLISHED [...] shortness of breath We will schedule at [facility] Bladder scan/postvoid residual-80 cc approximate 06/29/2022 CC: marcy Saw me last noted below and had laser TURP Did well afterwards but then having more trouble so underwent TURP in December 2021 in [place] and did well but over the last [...] are not tender. Urology Procedures: October 19, 20227060-gnuduevxom-stuclhu open and apex and mid prostate open but then small hole near 12 o'clock position towards the bladder neck and at 6 o'clock position couple of small holes I think I can see through to the bladder September 14, 20229911-rllvnbbvbp-pvon recurrence of contracture just distal to the bladder neck and the prostate and with a little force passed the scope through it and dilated this very short area of contracture and minimal residual urine August 05, 2022-cystoscopy, dilation, transurethral resection bladder ytjt-Pndkbfmuy-mrqghslkfgg inflamed benign urothelial mucosa with dystrophic microcalcifications July 20, 20221723-Giuamwkoak-yt urethral stricture but just inside verumontanum I [...] (no units) Date Value 10/21/2016 neg Specific Waterflow, Ur (no units) Date Value 10/21/2016 1.025 [...] GERD (gastroesophageal reflux disease) Melanoma (HCC) 1991 [place] Safety [employer] Persistent atrial fibrillation (HCC) 10/11/2019 Admitted 09/05/2019 [facility]. Followed by [facility]. FAMILY HISTORY Problem Relation Age [...] may be inappropriate. documented in this encounter [facility] 10-15-2022 Miscellaneous Notes Spoke with pt and information listed below given. Pt verbalizes understanding. Heather Welch LPN Consult placed. No specific referral, any doctor is fine. Thank you, Radha Berman APRN.PRIMER CHARGING TOOL SETTER Pt calling for a referral to Gastro at [facility]. Pt asking if there is a doctor there you would recommend. Dx is GERD. Please advise pt. Heather Welch LPN documented in this encounter [facility] 10-12-2022 History of Present illness Narrative ESTABLISHED [...] (no units) Date Value 10/21/2016 neg Specific Waterflow, Ur (no units) Date Value 10/21/2016 1.025 [...] GERD (gastroesophageal reflux disease) Melanoma (HCC) 1991 [place] [employer] Persistent atrial fibrillation (HCC) 10/11/2019 Admitted 09/05/2019 [facility]. Followed by [facility]. FAMILY HISTORY Problem Relation Age [...] 2012 L Rotator cuff repair - bilateral [facility] PAST SURGICAL HISTORY OF plastic surgery [...] ICD10: R35.1 - URINE CULTURE - prelim Millierim Beata Watkins APRN.PRIMER CHARGING TOOL SETTER documented in this encounter [facility] 09-30-2022 Miscellaneous Notes Addended by: MARI DAVIDSON LPN on: 09/30/2022 10:03 AM Modules accepted: Orders Patient calling back now wants rx sent to [facility] for the generic viagra please. Aware PCP is out of office and asking to have request sent to MASTER CONTROL TECHNICIAN to review. Pending rx needs completed. Please [...] Tiffany Beauchamp LPN documented in this encounter [facility] 08-31-2022 History of Present illness Narrative Images from the original note were not included. [facility] [place] [facility] Department of Cardiovascular Medicine OUTPATIENT VISIT DATE 08/31/22 OUTPATIENT VISIT TYPE ESTABLISHED PRIMARY CARE PHYSICIAN: Dipak Aguilar DO [address] [facility] [address] CHIEF COMPLAINT: Patient presents with: CARD Follow [...] GERD (gastroesophageal reflux disease) Melanoma (HCC) 1990 [place] Safety Person Persistent atrial fibrillation (HCC) 10/11/2019 Admitted 09/05/2019 [facility]. Followed by [facility]. PAST SURGICAL HISTORY Procedure Laterality [...] 2012 L Rotator cuff repair - bilateral [facility] PAST SURGICAL HISTORY OF plastic surgery [...] No Family History ALLERGIES: ALLERGIES Allergen Reactions [place] Other: See Comments sneezing,runny nose [place] Cough also [place] with same reaction Mold [...] of any further assistance. Wes Mcintosh MD, [facility] Department of Cardiovascular Medicine [facility] [place] [address] Medical Decision Making: Problems: Moderate: 2+ stable chronic illnesses Data: Unique test result(s) reviewed: 1 Risk: Low: Low risk from testing/treatment Moderate: Drug management Medical Decision Making Level: 4 - Moderate documented in this encounter [facility] 08-20-2022 Miscellaneous Notes Patient advised-urine culture was positive so I sent prescription for Bactrim to his pharmacy Patient agreed. Karlee Sheets Cma Inform patient that urine culture was positive so I sent prescription for Bactrim to his pharmacy documented in this encounter [facility] 08-17-2022 Instructions Sharath Issa MD - 08/17/2022 10:33 AM EDT INSTRUCTIONS FROM DR. ISSA: Start the Detrol medication and see if it helps with leakage issues and I sent to your local pharmacy I will perform cystoscopy in the office when I see you back in about 4 weeks documented in this encounter [facility] 08-17-2022 History of Present illness Narrative ESTABLISHED [...] shortness of breath We will schedule at [facility] Bladder scan/postvoid residual-80 cc approximate 06/29/2022 CC: marcy Saw me last noted below and had laser TURP Did well afterwards but then having more trouble so underwent TURP in December 2021 in [place] and did well but over the last [...] flomax no help in past saw in [place]--all drugs tried sent by [place] to discuss PVP--had been discussed by Urologist constanza cysto last yr PROSTATE: 30-50 gm SEMINAL VESICLES: Both seminal vesicles are normal in size and are not tender. Urology Procedures: August 05, 2022-cystoscopy, dilation, transurethral resection bladder uwon-Gcrplipmm-fbpwmrhadkl inflamed benign urothelial mucosa with dystrophic microcalcifications July 20, 20228838-Uvinczfomd-zu urethral stricture but just inside verumontanum I can see just scar tissue further and prostate and could be just the bladder neck or mid prostate and calcification at 2 o'clock position and a few holes more towards 6:00 and they look black as if I can see through them into the bladder possibly September 24, 2016-photo vaporization of the prostate 11/11/2015: Procedure: cysto--[facility], Comment: bilobar obstruct; mod trabec Creatinine Date Value Ref Range Status 07/29/2022 1.42 (H) 0.73 - 1.22 mg/dL Final PSA (ng/mL) Date Value 07/22/2016 0.54 08/14/2012 0.84 PSA Screening (ng/mL) Date Value 11/16/2021 0.99 Glucose, Urine (mg/dL) Date Value 10/21/2016 neg Bilirubin, Urine (no units) Date Value 10/21/2016 neg Ketones, Urine (no units) Date Value 10/21/2016 neg Specific Waterflow, Ur (no units) Date Value 10/21/2016 1.025 [...] GERD (gastroesophageal reflux disease) Melanoma (HCC) 1991 [place] Safety [employer] Persistent atrial fibrillation (HCC) 10/11/2019 Admitted 09/05/2019 [facility]. Followed by [facility]. FAMILY HISTORY Problem Relation Age [...] may be inappropriate. documented in this encounter [facility] 08-09-2022 Nurse Note Pt in office today [...] Macy Chang RN documented in this encounter [facility] 08-05-2022 Miscellaneous Notes Patient has been moved to Tuesday08/09/2022 for voiding trial at [facility]. Chante Reyes S/p TURP P: pt has appt with nurse next --see if they want to move that to tue or if nursing can do active void trial then documented in this encounter [facility] 07-26-2022 History of Present illness Narrative Chief [...] history of colon cancer Melanoma (HCC) 1991 [place] Safety [employer] Persistent atrial fibrillation (HCC) 10/11/2019 Admitted 09/05/2019 [facility]. Followed by [facility]. Previous Surgical History PAST SURGICAL [...] 2012 L Rotator cuff repair - bilateral [facility] PAST SURGICAL HISTORY OF plastic surgery [...] Family History Patient Allergies ALLERGIES Allergen Reactions [place] Other: See Comments sneezing,runny nose [place] Cough also [place] with same reaction Mold [...] are well controlled and stable. Crystal Pradhan APRN.PRIMER CHARGING TOOL SETTER documented in this encounter [facility] 07-22-2022 Miscellaneous Notes Pt is scheduled for C&P, urethral dilation, possible DVIU, TURP with Dr Issa at [facility] on 08/05/22 @ 8:00 (6:00 arrival). PAT and labs on 07/29/22 @ 3:00 at [place]. Pt takes ELIQUIS- needs to be off 3 days prior and at least 7 days after surgery. Medical clearance form faxed to Dr Dipak Aguilar, [phone] on 07/20/22. 1 week follow up with nurse on 08/12/22 @ 1:30. 2-[address] Issa on 08/17/22 @ 11:00. Pt given date, time, prep and arrival instructions in person on 07/20/22. Written info given also. Yoko MENDES documented in this encounter [facility] 07-22-2022 Miscellaneous Notes T/C to pt, he is willing to come in tried but was told you are not available till way out. Explained both SENIOR IT SPECIALIST milan out and you are trying to see everyone. I got him in on Tuesday with Crystal rPadhan N.P. Please clarify, I haven't seen him [...] Monica Vernon LPN documented in this encounter [facility] 07-20-2022 Instructions Sharath Issa MD - 07/20/2022 10:36 AM EDT INSTRUCTIONS FROM DR. ISSA: We will schedule the cystoscopy with the dilation and possible transurethral section prostate documented in this encounter [facility] 07-20-2022 Procedure note Procedure(s): CYSTOSCOPY Pre-Procedure Diagnose(s): Bladder neck contracture Post-Procedure Diagnose(s): Bladder neck contracture CYSTOSCOPY PROCEDURE NOTE: 79545-aikvx/fulg 01873-tlkob,bx 63978--ucylf/complex 73265--drtlx 99795--rdwmwssq cath 83665-poejr/dilate BLADDER IRRIGATION, SIMPLE, LAVAG [[id number] Juan Jose Foster is a 87 year old male who presents for cystoscopy. Pt ID verified with patient: yes Procedure verified with patient: yes Procedure confirmed with physician and customer support technician: yes Special equipment-cystoscope UNIVERSAL PROTOCOL / SAFETY [...] Sharath Issa MD documented in this encounter [facility] 07-20-2022 History of Present illness Narrative ESTABLISHED [...] shortness of breath We will schedule at [facility] Bladder scan/postvoid residual-80 cc approximate Past Urology Hx: 06/29/2022 CC: marcy Saw me last noted below and had laser TURP Did well afterwards but then having more trouble so underwent TURP in December 2021 in [place] and did well but over the last [...] flomax no help in past saw in [place]all drugs tried sent [place] to discuss PVP--had been discussed by Urologist constanza cysto last yr PROSTATE: 30-50 gm SEMINAL VESICLES: Both seminal vesicles are normal in size and are not tender. Urology Procedures: July 20, 20228213-Vbhwpfpkyh-gl urethral stricture but just inside verumontanum I [...] (no units) Date Value 10/21/2016 neg Specific Waterflow, Ur (no units) Date Value 10/21/2016 1.025 [...] history of colon cancer Melanoma (HCC) 1990 [place] Safety Person Persistent atrial fibrillation (HCC) 10/11/2019 Admitted 09/05/[facility]. Followed by [facility]. FAMILY HISTORY Problem Relation Age [...] and dysuria. Risk of anesthesia complications, stroke, VT, etc.The patient expressed an understanding with regard [...] neck stricture - ICD9: 596.89, ICD10: N32.0 [facility]-cystoscopy, pyelograms, urethral dilation/DVIU/possible TURP - SULFAMETHOXAZOLE 800 MG-TRIMETHOPRIM 160 MG TABLET - LIDOCAINE 2 % MUCOSAL JELLY IN APPLICATOR - CYSTO.VERONIQUE Issa Please note: This note has been produced using speech recognition software and may contain errors related to that system including grammar, punctuation, spelling, gender and words and phrases that may be inappropriate. documented in this encounter [facility] 07-01-2022 History of Present illness Narrative This note was created using iBiz Softwareriter. Subjective Juan Jose Foster is a 87 [...] evaluation. MARIEL Cardona documented in this encounter [facility] 06-29-2022 Instructions Sharath Issa MD - 06/29/2022 [...] after the test. documented in this encounter [facility] 06-29-2022 History of Present illness Narrative ESTABLISHED PATIENT OFFICE VISIT PATIENT INFO: Juan Jose Foster 87 year old HPI 06/29/2022 CC: marcy Saw me last noted below and had laser TURP Did well afterwards but then having more trouble so underwent TURP in December 2021 in [place] and did well but over the last [...] saw in [place]--all drugs tried sent by MARIEL to discuss PVP--had been discussed by Urologist [...] (no units) Date Value 10/21/2016 neg Specific [place], Ur (no units) Date Value 10/21/2016 1.025 [...] history of colon cancer Melanoma (HCC) 1991 [place] [employer] Persistent atrial fibrillation (HCC) 10/11/2019 Admitted 09/05/[facility]. Followed by [facility]. FAMILY HISTORY Problem Relation Age [...] may be inappropriate. documented in this encounter [facility] 12-28-2021 Miscellaneous Notes RN from [place] called about pt getting clearance for surgery. She is requesting for EKG, SHAKIRA from Dr. Mcintosh, Echo and stress test results. Advised RN to call medical records to obtain these documents at [phone] documented in this encounter [facility] 12-08-2021 History of Present illness Narrative Patient came in presenting with a sore on his middle upper chest. Patient says he has had 3 weeks. Patient says it does not seem to be getting better. Patient says he did try to open it up but nothing came out. Patient has a history of skin cancer lesions. Patient sees a [employer] supervisor for this. Did attempt to call patient's dermatology office they were not sure they can get them in. Got an appointment tomorrow with Julian Robbins. Patient was okay with this and patient will follow-up tomorrow morning with Julian Robbins. documented in this encounter [facility] 12-07-2021 Miscellaneous Notes Spoke with pt and [...] Dipak Aguilar DO documented in this encounter [facility] 12-01-2021 History of Present illness Narrative Patient presents for COVID booster. Denies any problems at this time. Tolerated injection well. Arlin Yang LPN documented in this encounter [facility] 11-16-2021 History of Past i llness Narrative Problem Noted Date Diagnosed Date Resolved Date Atrial fibrillation 11/16/2021 11/17/19 23 Atrial fibrillation, chronic 08/26/2020 11/12/2021 Persistent atrial fibrillation 10/11/2019 11/12/2021 Overview: Admitted 09/05/2019 [facility]. Followed by [facility]. Asthma with chronic obstruct steve pulmonary disease (COPD) 10/26/2018 09/12/2019 documented as of this encounter (statuses as of 11/19/2022) [facility] History of Past illness Narrative* Problem Noted Date Diagnosed Date Resolved Date Atrial fibrillation 11/16/2021 11/17/19 23 Atrial fibrillation, chronic 08/26/2020 11/12/2021 Persistent atrial fibrillation 10/11/2019 11/12/2021 Overview: Admitted 09/05/2019 [facility]. Followed by [facility]. Asthma with chronic obstruct steve pulmonary disease (COPD) 10/26/2018 09/12/2019 documented as of this encounter (statuses as of 05/02/2023) [facility] History of Past illness Narrative* Problem Noted Date Diagnosed Date Resolved Date Atrial fibrillation 11/16/2021 11/17/19 23 Atrial fibrillation, chronic 08/26/2020 11/12/2021 Persistent atrial fibrillation 10/11/2019 11/12/2021 Overview: Admitted 09/05/2019 [facility]. Followed by [facility]. Asthma with chronic obstruct steve pulmonary disease (COPD) 10/26/2018 09/12/2019 documented as of this encounter (statuses as of 05/18/2023) [facility] Miscellaneous Notes* Telephone Encounter - Lidia Danielson Pss - 10/05/2021 9:37 AM EDT Form has been scanned and faxed. Thank you * Telephone Encounter - Wes Mcintosh MD - 10/02/2021 5:28 PM EDT Done. * Telephone Encounter - Lizzie Bonds Ma - 09/30/2021 8:28 AM EDT Type of form: Joan urology specialist. (Asking about stopping Eliquis) Form received via fax When form is completed, Fax form to [phone] Form has been forwarded to Physician Desk: Dr. Dayna GALDAMEZ. Lizzie Bonds Ma [facility] History of Present illness Narrative* Sara Gallardo Pss - 08/07/2021 9:43 AM EDT POPULATION HEALTH NAVIGATION OUTREACH Action/ Patient Outreach: [facility] Support - Pt has currently been scheduled [...] Sent to Practice: No Navigation Signature: Sara Gallardo Pss August 07, 2021 9:43 AM [facility] History of Present illness Narrative* Sara Arshad [...] 13, 2020 9:48 AM [facility] History of Past illness Narrative* Problem Noted Date Resolved Date Atrial fibrillation, chronic 08/26/2020 Persistent atrial fibrillation 10/11/2019 0 11/12/2021 Overview: Admitted 09/05/2019 [facility]. Followed by [facility]. Asthma with chronic obstructive pulmonary diseas e (COPD) 10/26/2018 09/12/2019 documented as of this encounter (statuses as of 12/01/2021) [facility] History of Past illness Narrative* Problem Noted Date Resolved Date Atrial fibrillation, chronic 08/26/2020 Persistent atrial fibrillation 10/11/2019 0 11/12/2021 Overview: Admitted 09/05/2019 [facility]. Followed by [facility]. Asthma with chronic obstructive pulmonary diseas e (COPD) 10/26/2018 09/12/2019 documented as of this encounter (statuses as of 12/07/2021) [facility] History of Past illness Narrative* Problem Noted Date Resolved Date Atrial fibrillation, chronic 08/26/2020 Persistent atrial fibrillation 10/11/2019 0 11/12/2021 Overview: Admitted 09/05/2019 [facility]. Followed by [facility]. Asthma with chronic obstructive pulmonary diseas e (COPD) 10/26/2018 09/12/2019 documented as of this encounter (statuses as of 12/08/2021) [facility] History of Past illness Narrative* Problem Noted Date Resolved Date Atrial fibrillation, chronic 08/26/2020 Persistent atrial fibrillation 10/11/2019 0 11/12/2021 Overview: Admitted 09/05/2019 [facility]. Followed by [facility]. Asthma with chronic obstructive pulmonary diseas e (COPD) 10/26/2018 09/12/2019 documented as of this encounter (statuses as of 12/28/2021) [facility] History of Past illness Narrative* Problem Noted Date Resolved Date Atrial fibrillation, chronic 08/26/2020 Persistent atrial fibrillation 10/11/2019 0 11/12/2021 Overview: Admitted 09/05/2019 [facility]. Followed by [facility]. Asthma with chronic obstructive pulmonary diseas e (COPD) 10/26/2018 09/12/2019 documented as of this encounter (statuses as of 07/01/2022) [facility] of Past illness Narrative* Problem Noted Date Resolved Date Atrial fibrillation, chronic 08/26/2020 Persistent atrial fibrillation 10/11/2019 0 11/12/2021 Overview: Admitted 09/05/2019 [facility]. Followed by [facility]. Asthma with chronic obstructive pulmonary diseas e (COPD) 10/26/2018 09/12/2019 documented as of this encounter (statuses as of 07/01/2022) [facility] History of Past illness Narrative* Problem Noted Date Resolved Date Atrial fibrillation, chronic 08/26/2020 Persistent atrial fibrillation 10/11/2019 0 11/12/2021 Overview: Admitted 09/05/2019 [facility]. Followed by [facility]. Asthma with chronic obstructive pulmonary diseas e (COPD) 10/26/2018 09/12/2019 documented as of this encounter (statuses as of 07/22/2022) [facility] of Past illness Narrative* Problem Noted Date Resolved Date Atrial fibrillation, chronic 08/26/2020 Persistent atrial fibrillation 10/11/2019 0 11/12/2021 Overview: Admitted 09/05/2019 [facility]. Followed by [facility]. Asthma with chronic obstructive pulmonary diseas e (COPD) 10/26/2018 09/12/2019 documented as of this encounter (statuses as of 07/22/2022) [facility] of Past illness Narrative* Problem Noted Date Resolved Date Atrial fibrillation, chronic 08/26/2020 Persistent atrial fibrillation 10/11/2019 0 11/12/2021 Overview: Admitted 09/05/2019 [facility]. Followed by [facility]. Asthma with chronic obstructive pulmonary diseas e (COPD) 10/26/2018 09/12/2019 documented as of this encounter (statuses as of 07/26/2022) [facility] of Past illness Narrative* Problem Noted Date Resolved Date Atrial fibrillation, chronic 08/26/2020 Persistent atrial fibrillation 10/11/2019 0 11/12/2021 Overview: Admitted 09/05/2019 [facility]. Followed by [facility]. Asthma with chronic obstructive pulmonary diseas e (COPD) 10/26/2018 09/12/2019 documented as of this encounter (statuses as of 08/05/2022) [facility] of Past illness Narrative* Problem Noted Date Resolved Date Atrial fibrillation, chronic 08/26/2020 Persistent atrial fibrillation 10/11/2019 0 11/12/2021 Overview: Admitted 09/05/2019 [facility]. Followed by [facility]. Asthma with chronic obstructive pulmonary diseas e (COPD) 10/26/2018 09/12/2019 documented as of this encounter (statuses as of 08/09/2022) [facility] of Past illness Narrative* Problem Noted Date Resolved Date Atrial fibrillation, chronic 08/26/2020 Persistent atrial fibrillation 10/11/2019 0 11/12/2021 Overview: Admitted 09/05/2019 [facility]. Followed by [facility]. Asthma with chronic obstructive pulmonary diseas e (COPD) 10/26/2018 09/12/2019 documented as of this encounter (statuses as of 08/19/2022) [facility] of Past illness Narrative* Problem Noted Date Resolved Date Atrial fibrillation, chronic 08/26/2020 Persistent atrial fibrillation 10/11/2019 0 11/12/2021 Overview: Admitted 09/05/2019 [facility]. Followed by [facility]. Asthma with chronic obstructive pulmonary diseas e (COPD) 10/26/2018 09/12/2019 documented as of this encounter (statuses as of 08/20/2022) [facility] of Past illness Narrative* Problem Noted Date Diagnosed Date Resolved Date Atrial fibrillation, chronic 08/26/2020 11/12/2021 Persistent atrial fibrillation 10/11/2019 11/12/2021 Overview: Admitted 09/05/2019 [facility]. Followed by [facility]. Asthma with chronic obstruct steve pulmonary disease (COPD) 10/26/2018 09/12/2019 documented as of this encounter (statuses as of 08/31/2022) [facility] of [facility] illness Narrative* Problem Noted Date Diagnosed Date Resolved Date Atrial fibrillation, chronic 08/26/2020 11/12/2021 Persistent atrial fibrillation 10/11/2019 11/12/2021 Overview: Admitted 09/05/2019 [facility]. Followed by [facility]. Asthma with chronic obstruct steve pulmonary disease (COPD) 10/26/2018 09/12/2019 documented as of this encounter (statuses as of 09/30/2022) [facility] illness Narrative* Problem Noted Date Diagnosed Date Resolved Date Atrial fibrillation, chronic 08/26/2020 11/12/2021 Persistent atrial fibrillation 10/11/2019 11/12/2021 Overview: Admitted 09/05/2019 [facility]. Followed by [facility]. Asthma with chronic obstruct steve pulmonary disease (COPD) 10/26/2018 09/12/2019 documented as of this encounter (statuses as of 10/12/2022) [facility] of Past illness Narrative* Problem Noted Date Diagnosed Date Resolved Date Atrial fibrillation, chronic 08/26/2020 11/12/2021 Persistent atrial fibrillation 10/11/2019 11/12/2021 Overview: Admitted 09/05/2019 [facility]. Followed by [facility]. Asthma with chronic obstruct steve pulmonary disease (COPD) 10/26/2018 09/12/2019 documented as of this encounter (statuses as of 10/15/2022) [facility] of Past illness Narrative* Problem Noted Date Diagnosed Date Resolved Date Atrial fibrillation, chronic 08/26/2020 11/12/2021 Persistent atrial fibrillation 10/11/2019 11/12/2021 Overview: Admitted 09/05/2019 [facility]. Followed by [facility]. Asthma with chronic obstruct steve pulmonary disease (COPD) 10/26/2018 09/12/2019 documented as of this encounter (statuses as of 10/19/2022) [facility] of Past illness Narrative* Problem Noted Date Diagnosed Date Resolved Date Atrial fibrillation, chronic 08/26/2020 11/12/2021 Persistent atrial fibrillation 10/11/2019 11/12/2021 Overview: Admitted 09/05/2019 [facility]. Followed by [facility]. 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 Followed by [facility]. Asthma with chronic obstruct steve pulmonary disease (COPD) 10/26/2018 09/12/2019 documented as of this encounter (statuses as of 10/26/2022) [facility] of Past illness Narrative* Problem Noted Date Diagnosed Date Resolved Date Atrial fibrillation, chronic 08/26/2020 11/12/2021 Persistent atrial fibrillation 10/11/2019 11/12/2021 Overview: Admitted 09/05/2019 [facility]. Followed by [facility]. Asthma with chronic obstruct steve pulmonary disease (COPD) 10/26/2018 09/12/2019 documented as of this encounter (statuses as of 11/01/2022) [facility] of Past illness Narrative* Problem Noted Date Resolved Date Asthma with chronic obstructive pulmonary diseas e (COPD) 10/26/2018 09/12/2019 documented as of this encounter (statuses as of 08/07/2021) [place] [id number] History of Past illness Narrative* Problem Noted Date Resolved Date Asthma with chronic obstructive pulmonary diseas e (COPD) 10/26/2018 09/12/2019 documented as of this encounter (statuses as of 10/05/2021) [facility] Sukh[facility] Note Date/Time September 11, 2024 12:4 6pm [facility] Medical Records Department [address] [place] [address] Emergency Department Summary 09/11/24 MR#: [id number] Acct: [id number] Name: JUAN JOSE FOSTER Rep #:[id number] : 1935 [id number] From: Sukhdev Mark MD [...] Prior similar symptoms: No Recent Illness/Hospitalization: [facility] Medical History (Updated 09/11/24 @ 12:46 by [...] radial and ulnar function intact right hand [place] Coma Scale: document GCS findings Spontaneous [...] pathology or acute traumatic injury. Reading Location: [facility] Knee X-Ray 09/11/24 10:35 IMPRESSION: Hardware in position. Reading Location: [facility] CT of the head without contrast independent reviewed by pa at 1041. There is noevidence of fracture, [...] next 2 doses of Eliquis Print Language: Latvian Disposition Disposition: Home, Self Care What to do if you have Problems For any increased pain, shortness of breath, bleeding, nausea or vomiting, chestpain, or any unexpected problems, contact your Primary Care Provider. Call [facility] ([phone]) or report to the closest Emergency Room. Call 911 if necessary. 09/11/24 1246 <Electronically signed by Sukhdev Mark MD> Cosigner Signature (if applicable): CC: Dr. Dipak Aguilar DO ~ Signed [facility] Work Phone: Discharge summary Author Abdelrahman Keller [facility] Note Date/Time October 14, 2024 8: 44am [facility] Medical Records Department [address] [place] [address] Emergency Department Summary 10/14/24 MR#: [id number] Acct: [id number] Name: JUAN JOSE FOSTER Rep #:[id number] : 1935 [id number] From: Abdelrahman Keller MD PCP: Dr. Dipak Aguilar, DO Status:RE G ER Location: ED HPI History of Present Illness Chief Complaint: Hypertension Informant: patient and spouse/S.O. Narrative Narrative: 89-year-old male brought in by his because of high blood pressure numbers. She presented diary showing 3 times daily blood pressure numbers for the past month. Majority of systolic blood pressures are in the 140s. He sometimes is in the 160s. He has hydralazine to be given as a prn up to every 8 hours for elevated numbers, so the checks it every 8 hours. This morning when she checked it it was 195 systolic. He had no symptoms with that. She gave him hismorning medications and hydralazine 25 mg and brought him here to the ER. He isasymptomatic at this time. He has chronic A-fib and does not feel any palpitations, chest discomfort, dyspnea, focal neurologic symptoms, or headache. The last time he had medication changes was about 1 month ago, he had increaseddoses of his antihypertensives. He denies taking any [id number] medications recently including decongestants, or having any illness or injury. He has been urinating normally. [facility] Medical History (Updated 10/14/24 @ 08:[address] Abdelrahman Keller MD) Pulmonary hypertension Diverticulosis Insomnia Atrial fibrillation [...] / Time No Known Allergies Allergy Verified 10/14/24 07:30 Family History Mother Breast cancer Father Colon [...] ROS ROS ED Constitutional Constitutional ED: Denies chills or fever(s) Eyes Eyes: Denies change in vision or diplopia ENT ENT ED: Denies rhinorrhea or sore throat Cardiovascular Cardiovascular: Denies chest pain or palpitations Respiratory/Chest Respiratory/Chest: Denies cough or dyspnea Gastrointestinal Gastrointestinal: Denies abdominal pain, diarrhea, nausea or vomiting Genitourinary Genitourinary ED: Denies dysuria or hematuria Musculoskeletal Musculoskeletal: Denies back pain or neck pain Integumentary Denies abscess or rash Neurologic Neurologic: Denies headache(s), paresthesias or weakness Psychiatric Psychiatric: Denies anxiety or suicidal thoughts EXAM Physical Exam Const Vital Signs: 10/14/24 07:29 10/14/24 07:29 10/14/24 07:39 Temperature 97.1 F L Temperature Source Temporal Pulse Rate 85 91 Respiratory Rate 14 16 Respiratory Effort Normal Non-Labored Respiratory Pattern Normal Blood Pressure 170/115 H 161/109 H Blood Pressure Mean 133 126 Pulse Ox 99 98 Oxygen Delivery Method Room Air Room Air 10/14/24 07:41 10/14/24 08:00 10/14/24 08:15 Temperature Temperature Source Pulse Rate 104 H 81 74 Respiratory Rate 14 19 H 19 H Respiratory Effort Respiratory Pattern Blood Pressure 162/102 H 144/95 H 156/91 H Blood Pressure Mean 122 106 107 Pulse Ox 98 98 97 Oxygen Delivery Method Room Air Positive well nourished and well developed General Appearance ED: well developed and NAD HEENT Reports moist mucous membranes normocephalic and atraumatic Eyes PERRL and EOMs intact bilaterally Neck full ROM and supple Resp normal respiratory effort and clear to auscultation bilaterally Cardio Rate: Negative for tachycardic Rhythm: abnormal rhythm irregularly irregular GI non-tender and non-distended Auscultation: normoactive bowel sounds Palpation: soft Back/Spine no CVA tenderness General Back: other FROM Extremity normal to inspection General Extremety ED: Negative for edema, pulses abnormal or tenderness General Extremity: Negative for edema or pulses abnormal Neuro oriented x3, CN's II-XII intact bilaterally and no sensory deficits noted Neuro Narrative: nml speech and gait Sensorium / Orientation: awake and alert Motor Exam: strength 5/5 throughout Psych mental status grossly normal Skin no rashes or lesions noted and no wounds Skin Narrative: healed burned skin distal BLE MDM MDM MDM Narrative Medical decision making narrative: Seen as the patient's blood pressures were in the 140s yesterday and 195 withoutsymptoms this morning I do not think obtaining labs and asymptomatic patient is necessarily going to be helpful or valuable. I reviewed some old labs, his lastchemistries were 1 year ago, although the white states he has had more recent labs through the [facility] where his PCP practices. Staff performed an EKG prior to my evaluating the patient because he was in A- fib, this is chronic for the patient and he is rate controlled and asymptomatic and there is no acute injury pattern. We observed him for a while. His blood pressures ranged from the 160s down to 145. He remained asymptomatic. He did not require any other emergent treatments from us. At discharge, his pressure is133/87; with these numbers, I do not recommend increasing any of his daily medications right now. He and his are reassured and advised to continue logging and follow-up with her doctor over the phone or in person unless he develops anysymptoms such as chest discomfort, severe headache, focal neurologic symptoms, dyspnea at which point he should return to the ER immediately. They are comfortable with that plan. History & Record Review Additional record(s) reviewed:: Prior labs Rhythm Strip Rhythm Strip: A-fib Rate: 98 Ectopy: None EKG Initial EKG: Attestation: I personally reviewed and interpreted this EKG as follows: Interpretation: No Acute Injury Pattern, Atrial Fibrillation and RBBB Prior EKG tracings: available for review Prior: Unchanged Discharge Plan Triage Chief Complaint: Hypertension ED Provider: Abdelrahman Keller Dx/Rx/DC Orders Clinical Impression: Accelerated hypertension, Chronic a-fib Instructions: ED Hypertension, Established Prescriptions: No Action cholecalciferol (vitamin D3) 50 [...] Dipak Aguilar DO [Primary Care Provider] - Print Language: Latvian Disposition Disposition: Home, Self Care What to do if you have Problems For any increased pain, shortness of breath, bleeding, nausea or vomiting, chestpain, or any unexpected problems, contact your Primary Care Provider. Call [facility] ([phone]) or report to the closest Emergency Room. Call 911 if necessary. 10/14/24 0844 <Electronically signed by Abdelrahman Keller MD> Cosigner Signature (if applicable): CC: Dr. Dipak Aguilar DO ~ Signed [facility] Work Phone: Evaluation note* Diagnosis Need for vaccination- Primary Need for prophylactic vaccination and inoculation against unspecified single disease [facility] Diagnosis Skin lesion- Primary Unspecified disorder of skin and subcutaneous tissue [facility] Diagnosis Acute otitis externa of right ear, unspecified type- Primary Cellulitis of right external ear Infective otitis externa, unspecified [facility] Diagnosis 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 tract symptoms (LUTS) Nocturia Poor urinary stream Slowing of urinary stream Frequency of micturition Urinary frequency Incomplete bladder emptying [facility] Diagnosis BPH with obstruction/lower urinary tract [...] tract symptoms (LUTS) [facility] Diagnosis Preoperative clearance- Primary Preoperative examination, unspecified Asthma-COPD overlap syndrome (HCC) Atrial fibrillation, unspecified type (HCC) Bladder neck contracture Bladder neck obstruction Poor urinary stream Slowing of urinary stream BPH with obstruction/lower urinary tract symptoms Hypertrophy of prostate with urinary obstruction and other lower urinary tract symptoms (LUTS) [facility] Diagnosis 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 tract symptoms (LUTS) [facility] Diagnosis Bladder neck stricture- Primary Other specified disorders of bladder Nocturia Urinary incontinence, unspecified type [facility] Permanent atrial fibrillation (HCC)- Primary Atrial fibrillation [facility] Diagnosis Weak urinary stream- Primary Slowing of urinary stream Incomplete bladder emptying Bladder neck stricture Other specified disorders of bladder Poor urinary stream Slowing of urinary stream Nocturia [facility] Diagnosis Gastroesophageal reflux disease without esophagitis- Primary Esophageal reflux [facility] Diagnosis Weak urinary stream- Primary Slowing of urinary stream Bladder neck stricture Other specified disorders of bladder Frequency of micturition Urinary frequency Bladder neck obstruction [facility] Diagnosis 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 tract symptoms (LUTS) [facility] Diagnosis Permanent atrial fibrillation (HCC) Atrial fibrillation [facility] Diagnosis Poor urinary stream Slowing of urinary stream [facility] Diagnosis Bladder neck stricture- Primary Other specified disorders of bladder 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 of organic origin [facility] Diagnosis Screening for ischemic heart disease- Primary Shortness of breath Permanent atrial fibrillation (HCC) Atrial fibrillation [facility] Diagnosis Permanent atrial fibrillation (HCC) Atrial [...] (HCC) Atrial fibrillation [facility] Diagnosis Permanent atrial fibrillation (HCC) Atrial [...] neoplasm of prostate [facility] Diagnosis Permanent atrial fibrillation (HCC) Atrial [...] region and thigh documented in this encounter [facility] note* Diagnosis Permanent atrial fibrillation (HCC) Atrial [...] spondylosis without myelopathy [facility] Diagnosis Permanent atrial fibrillation (HCC) Atrial [...] region and thigh [facility]* Diagnosis Knee injury, right, initial encounter [...] diagnosis of hypertension [facility] Diagnosis Permanent atrial fibrillation (HCC) Atrial [...] and behavioral disorders [facility] Diagnosis Permanent atrial fibrillation (HCC) Atrial [...] Productive cough Cough documented in this encounter [facility] note* Diagnosis Permanent atrial fibrillation (HCC) Atrial [...] Productive cough Cough documented in this encounter [facility] note* Diagnosis Permanent atrial fibrillation (HCC) Atrial [...] heart disease- Primary documented in this encounter [facility] note* Diagnosis Permanent atrial fibrillation (HCC) Atrial [...] Shortness of breath documented in this encounter [facility] note* Diagnosis Permanent atrial fibrillation (HCC) Atrial [...] Solitary pulmonary nodule documented in this encounter [facility] note* Diagnosis Permanent atrial fibrillation (HCC) Atrial [...] (HCC) Atrial fibrillation documented in this encounter [facility] note* Diagnosis Permanent atrial fibrillation (HCC) Atrial [...] Abnormality of gait [facility] Diagnosis Permanent atrial fibrillation (HCC) Atrial [...] leg edema Edema documented in this encounter [facility] note* Diagnosis Permanent atrial fibrillation (HCC) Atrial [...] Unspecified essential hypertension [facility] Diagnosis Permanent atrial fibrillation (HCC) Atrial [...] diabetes mellitus (HCC) documented in this encounter [facility] note* Diagnosis Permanent atrial fibrillation (HCC) Atrial [...] (HCC) Atrial fibrillation [facility] Diagnosis Permanent atrial fibrillation (HCC) Atrial [...] (HCC) Atrial fibrillation documented in this encounter [facility] note* Diagnosis Permanent atrial fibrillation (HCC) Atrial [...] diabetes mellitus (HCC) documented in this encounter [facility] note* Diagnosis Permanent atrial fibrillation (HCC) Atrial [...] Primary Atrial fibrillation documented in this encounter [facility] noteNo assessment information availableWOhioHealth Work Phone: Evaluation note* Diagnosis Permanent atrial [...] Fatigue, unspecified type [facility] Diagnosis Permanent atrial fibrillation (HCC) Atrial [...] of circulatory system [facility] Diagnosis Permanent atrial fibrillation (HCC) Atrial [...] head, initial encounter- Primary Fall, initial encounter roasterman current use of anticoagulant therapy Long-term (current) use of anticoagulants Laceration without foreign body of right hand, initial encounter Atrial fibrillation, unspecified type (HCC) [facility]* Diagnosis Permanent atrial fibrillation (HCC) Atrial [...] subsequent encounter- Primary [facility] Diagnosis Permanent atrial fibrillation (HCC) Atrial [...] subsequent encounter- Primary documented in this encounter [facility] for referral (narrative)* Outpatient Procedure (Routine) - Closed Specialty Diagnoses / Procedures Referred By Contac t Referred To Contact [facility] Diagnoses Preoperative clearance Procedures ECG COMPLETE ECG ROUTINE ECG W/LEAST 12 LDS W/I&R Crystal Pradhan APRN.PRIMER CHARGING TOOL SETTER [address] [place] [address] [facility] [id number] [place] [address] Referral ID Status Reason Start Date Expiration Date V isits Requested Visits Authorized [id number] Closed Auto-Generate d Referral 07/26/2022 07/26/2023 1 1 [facility] for referral (narrative)* Diagnostic Procedure Only (Routine) - Authorized Specialty Diagnoses / Procedures Referred By Contac t Referred To Contact [facility]LECULAR [facility] FUNCTIONAL IMAGING Diagnoses Shortness of breath Procedures NM CARDIAC PERF STRESS/EXERCISE MYOCARDIAL SPECT MULTIPLE STUDIES Analisa Nicole MD [address], [address] [place] [address] Fax: Molecular [facility] Functional [facility] [address] [place] [address] Referral ID Status Reason Start Date Expiration Date Visits Requested Visits Authorized [id number] Authorized Auto-Generat ed Referral 09/26/2023 10/11/2024 1 1 * Outpatient Procedure (Routine) - Authorized Specialty Diagnoses / Procedures Referred By Contac t Referred To Contact [facility] Diagnoses Shortness of breath Procedures ECHO ECHO TTHRC R-T 2D W/WOM-MODE COMPL SPEC&COLR D Analisa Nicole MD [address], [address] [place] [address] [facility] [place] [address] [place] [address] Referral ID Status Reason Start Date Expiration Date Visits Requested Visits Authorized [id number] Authorized Auto-Generat ed Referral 09/26/2023 09/11/2024 1 1 * Outpatient Procedure (Routine) - New Request Specialty Diagnoses / Procedures Referred By Contac t Referred To Contact [facility] Diagnoses Screening for ischemic heart disease Procedures ECG COMPLETE ECG ROUTINE ECG W/LEAST 12 LDS W/I&R Analisa Nicole MD [address], [address] [place] [address] [facility] [place] [address] [place] [address] Referral ID Status Reason Start Date Expiration Date Visits Requested Visits Authorized [id number] New Request Auto-Generat ed Referral 09/12/2023 09/07/2024 1 1 [facility] for referral (narrative)* Diagnostic Procedure Only (Routine) - New Request Specialty Diagnoses / Procedures Referred By Contac t Referred To Contact XR IMAGING Diagnoses Bilateral hip pain Procedures XR HIP BILATERAL 5V PEL/AP/LAT EACH HIP RADEX HIPS BILATERAL WITH PELVIS MINIMUM 5 VIEWS Jeffrey Zurita MD [address] [place] [address] Xr Imaging [facility] Referral ID Status Reason Start Date Expiration Date Visits Requested Visits Authorized [id number] New Request Auto-Generat ed Referral 11/10/2023 12/09/2024 1 1 * Diagnostic Procedure Only (Routine) - New Request Specialty Diagnoses / Procedures Referred By Contac t Referred To Contact XR IMAGING Diagnoses Bilateral hip pain Procedures XR KNEE GENERAL 4V AP BOTH/PA BOTH/LAT/MERC RIGHT RADIOLOGIC EXAM KNEE COMPLETE 4/MORE VIEWS Jeffrey Zurita MD [address] [place] [address] Xr Imaging [facility] Referral ID Status Reason Start Date Expiration Date Visits Requested Visits Authorized [id number] New Request Auto-Generat ed Referral 11/10/2023 12/09/2024 1 1 [facility] for referral (narrative)* Diagnostic Procedure Only (Routine) - Closed Specialty Diagnoses / Procedures Referred By Contac t Referred To Contact XR IMAGING Diagnoses Bilateral hip pain Procedures XR LUMBAR LIMITED 2V AP/LAT RADEX SPINE LUMBOSACRAL 2/3 VIEWS Jeffrey Zurita MD [address] [place] [address] [place] [address] Referral ID Status Reason Start Date Expiration Date V isits Requested Visits Authorized [id number] Closed Auto-Generate d Referral 11/23/2023 12/22/2024 1 1 * Diagnostic Procedure Only (Routine) - Closed Specialty Diagnoses / Procedures Referred By Contac t Referred To Contact XR IMAGING Diagnoses Bilateral hip pain Procedures XR HIP BILATERAL 5V PEL/AP/LAT EACH HIP RADEX HIPS BILATERAL WITH PELVIS MINIMUM 5 VIEWS Jeffrey Zurita MD [address] [place] [address] [place] [address] Referral ID Status Reason Start Date Expiration Date V isits Requested Visits Authorized [id number] Closed Auto-Generate d Referral 11/10/2023 12/09/2024 1 1 * Diagnostic Procedure Only (Routine) - Closed Specialty Diagnoses / Procedures Referred By Contac t Referred To Contact XR IMAGING Diagnoses Bilateral hip pain Procedures XR KNEE GENERAL 4V AP BOTH/PA BOTH/LAT/MERC RIGHT RADIOLOGIC EXAM KNEE COMPLETE 4/MORE VIEWS Jeffrey Zurita MD [address] [place] [address] [place] [address] Referral ID Status Reason Start Date Expiration Date V isits Requested Visits Authorized [id number] Closed Auto-Generate d Referral 11/10/2023 12/09/2024 1 1 [facility] for referral (narrative)* Diagnostic Procedure Only (Urgent) - Closed Specialty Diagnoses / Procedures Referred By Contac t Referred To Contact XR IMAGING Diagnoses Knee injury, right, initial encounter Procedures XR KNEE GENERAL 4V AP BOTH/PA BOTH/LAT/MERC RT KNEE AP-WGT/LAT/MERCHANT Wes Chavez APRN.PRIMER CHARGING TOOL SETTER [address] [place] [address] Xr Imaging [facility] Referral ID Status Reason Start Date Expiration Date V isits Requested Visits Authorized [id number] Closed Auto-Generate d Referral 10/13/2020 11/12/2021 1 1 [facility] for referral (narrative)* Outpatient Procedure (Routine) - Authorized Specialty Diagnoses / Procedures Referred By Contac t Referred To Contact [facility] Diagnoses Wheezing Asthma-COPD overlap syndrome (HCC) SOB (shortness of breath) on exertion Decreased activity tolerance Productive cough Procedures LUNG VOLUMES Judith Garcia APRN.PRIMER CHARGING TOOL SETTER [address] [place] [address] [facility] [place] [address] [place] [address] Referral ID Status Reason Start Date Expiration Date Visits Requested Visits Authorized [id number] Authorized Auto-Generat ed Referral 11/29/2023 12/28/2024 1 1 * Outpatient Procedure (Routine) - Authorized Specialty Diagnoses / Procedures Referred By Enrrique toussaint Referred To Contact [facility] Diagnoses Wheezing Asthma-COPD overlap syndrome (HCC) SOB (shortness of breath) on exertion Decreased activity tolerance Productive cough Procedures SPIROMETRY - BASELINE AND POST DILATOR BRNCDILAT RSPSE SPMTRY PRE&POST-BRNCDILAT ADMN Judith Garcia APRN.PRIMER CHARGING TOOL SETTER [address] [place] [address] [place] [address] Referral ID Status Reason Start Date Expiration Date Visits Requested Visits Authorized [id number] Authorized Auto-Generat ed Referral 11/29/2023 12/28/2024 1 1 * MRI/CT (Routine) - Authorized Specialty Diagnoses / Procedures Referred By Contac t Referred To Contact CT IMAGING Diagnoses Wheezing Asthma-COPD overlap syndrome (HCC) SOB (shortness of breath) on exertion Decreased activity tolerance Productive cough Procedures CT CHEST WO IVCON DIAGNOSTIC COMPUTED TOMOGRAPHY THORAX W/O CNTRST Judith Garcia APRN.PRIMER CHARGING TOOL SETTER [address] [place] [address] [place] [address] Referral ID Status Reason Start Date Expiration Date Visits Requested Visits Authorized [id number] Authorized Auto-Generat ed Referral 11/29/2023 12/28/2024 1 1 [facility] for referral (narrative)No reason for referral information availableWOhioHealth Work Phone: Reason for visit Narrative* Diagnostic Procedure Only (Routine) - Closed Specialty Diagnoses / Procedures Referred By Contac t Referred To Contact XR IMAGING Diagnoses Bilateral hip pain Procedures XR KNEE GENERAL 4V AP BOTH/PA BOTH/LAT/MERC RIGHT RADIOLOGIC EXAM KNEE COMPLETE 4/MORE VIEWS Jeffrey Zurita MD [address] [place] [address] [place] [address] Referral ID Status Reason Start Date Expiration Date V isits Requested Visits Authorized [id number] Closed Auto-Generate d Referral 11/10/2023 12/09/2024 1 1 [facility] for visit Narrative* Diagnostic Procedure Only (Urgent) - Closed Specialty Diagnoses / Procedures Referred By Contac t Referred To Contact XR IMAGING Diagnoses Knee injury, right, initial encounter Procedures XR KNEE GENERAL 4V AP BOTH/PA BOTH/LAT/MERC RT KNEE AP-WGT/LAT/MERCHANT Wes Chavez APRN.PRIMER CHARGING TOOL SETTER [address] [place] [address] [place] [address] Referral ID Status Reason Start Date Expiration Date V isits Requested Visits Authorized [id number] Closed Auto-Generate d Referral 10/13/2020 11/12/2021 1 1 [facility] for visit Narrative* Diagnostic Procedure Only (Routine) - Closed Specialty Diagnoses / Procedures Referred By Contac t Referred To Contact [facility]LECULAR [facility] FUNCTIONAL [facility]AGING Diagnoses Shortness of breath Procedures NM CARDIAC PERF STRESS/EXERCISE MYOCARDIAL SPECT MULTIPLE STUDIES Analisa Nicole MD [address] [facility], [address] [place] [address] [facility] [id number] Referral ID Status Reason Start Date Expiration Date V isits Requested Visits Authorized [id number] Closed Auto-Generate d Referral 09/26/2023 10/11/2024 1 1 [facility] for visit Narrative* Diagnostic Procedure Only (Routine) - Closed Specialty Diagnoses / Procedures Referred By Enrrique toussaint Referred To Contact US IMAGING Diagnoses Hospital discharge follow-up Bilateral leg edema Procedures US DVT LOWER BILATERAL DUP-SCAN XTR VEINS COMPLETE BILATERAL STUDY Radha Berman, NEHA.PRIMER CHARGING TOOL SETTER [address] [place] [address] Phone: tel: fax: [place] [address] Referral ID Status Reason Start Date Expiration Date V isits Requested Visits Authorized [id number] Closed Auto-Generate d Referral 05/16/2024 06/15/2025 1 1 [facility] Summary Purpose Family History Relationship Condition Age at Onset Recorded Date/T rahul mother Malignant neoplasm of breast Unknown father Malignant neoplasm of colon Unknown Malignant melanoma Unknown brother Chronic obstructive pulmonary disease Unk nown grandfather Multiple myeloma Unknown Advance Directives Documents on File Type Date Recorded Patient Front Desk Receptionist Expl anation Advance Directive(s) 08/10/2017 8:34 AM Advance Directive Response Recorded Date/ Time Do you have a Healthcare Power of Dock Hand? Yes September 11, 2024 10:22am Documents on File Type Date Recorded Patient Front Desk Receptionist Expl anation Advance Directive(s) 09/27/2024 5:29 PM Advance Directive(s) 09/26/2024 8:52 AM Advance Directive Response Recorded Date/ Time Do you have a Healthcare Power of Dock Hand? Yes September 11, 2024 10:22am Do you have a Healthcare Power of Dock Hand? Yes October 14, 2024 7:42am Name of Medical Power of Dock Hand Anika Foster October 14, 2024 7:42am Medications Administered Section Inactive Administered Medications - [...] Referral Specialty Diagnoses / Procedures Referred By Contac t Referred To Contact Gastroenterology Diagnoses Gastroesophageal reflux disease without esophagitis Procedures CONSULT TO GASTROENTEROLOGY OFFICE/OUTPATIENT [facility] 60-74 MINUTES Radha Berman APRN.PRIMER CHARGING TOOL SETTER [address] [place] [address] Referral ID Status Reason Start Date Expiration Date Visits Requested Visits Authorized [id number] Pending Review PCP Requested Referral 10/14/2022 10/14/2023 1 1 Specialty Diagnoses / Procedures Referred By Contac t Referred To Contact [facility] [place] Diagnoses Lumbar spondylosis Procedures CONSULT TO [facility] OFFICE/OUTPATIENT [facility] 60 MINUTES Jeffrey Zurita MD [address] [place] [address] Referral ID Status Reason Start Date Expiration Date Visits Requested Visits Authorized [id number] Authorized PCP Requested Referral 11/23/2023 11/22/2024 1 1 Specialty Diagnoses / Procedures Referred By Contac t Referred To Contact XR IMAGING Diagnoses Bilateral hip pain Procedures XR LUMBAR LIMITED 2V AP/LAT RADEX SPINE LUMBOSACRAL 2/3 VIEWS Jeffrey Zurita MD [address] [place] [address] [place] [address] Referral ID Status Reason Start Date Expiration Date V isits Requested Visits Authorized [id number] Closed Auto-Generate d Referral 11/23/2023 12/22/2024 1 1 Specialty Diagnoses / Procedures Referred By Contac t Referred To Contact Pulmonary Disease Diagnoses Lung nodule Procedures CONSULT TO LUNG NODULE CLINIC OFFICE/OUTPATIENT [facility] 60 MINUTES Judith Garcia APRN.PRIMER CHARGING TOOL SETTER [address] [place] [address] Referral ID Status Reason Start Date Expiration Date Visits Requested Visits Authorized [id number] Authorized PCP Requested Referral 12/12/2024 1 1 Chief Complaint and Reason for Visit Chief Complaint Admit Date fallSeptember 11, 2024 10:1 3am Chief Complaint Admit Date fallSeptember 11, 2024 10:1 3am HTN October 14, 2024 7: 29am Additional Source Comments (unrecognized sect ion and content) No Status Records FoundNo Status Records FoundNo Status Records FoundNo Status Records FoundNo Status Records FoundNo Status Records Found INFORMATION SOURCE (unrecogn ized section and content) DATE CREATED AUTHOR 11/28/2017 [facility] DATE CREATED AUTHOR AUTHOR'S ORGANIZ ATION 10/03/2023 [facility] DATE CREATED AUTHOR AUTHOR'S ORGANIZ ATION 11/26/2023 [facility] DATE CREATED AUTHOR AUTHOR'S ORGANIZ ATION 01/26/2024 [facility] DATE CREATED AUTHOR AUTHOR'S ORGANIZ ATION 10/13/[address] [facility] DATE CREATED AUTHOR AUTHOR'S ORGANIZ ATION 10/20/2024 [facility] Source Comments (unrecognize d section and content) In the event this informatio n is protected by the Federal Confidentiality of Alcohol and Drug Abuse Patient Records regulations: The Federal rules restrict any use of the information to criminally investigate or prosecute any alcohol or drug abuse patient.[facility] the event this information is protected by the Federal Confidentiality of Alcohol and Drug Abuse Patient Records regulations: The Federal rules restrict any use of the information to criminally investigate or prosecute any alcohol or drug abuse patient.[facility] Center[facility] the event this information is protected by the Federal Confidentiality of Alcohol and Drug Abuse Patient Records regulations: The Federal rules restrict any use of the information to criminally investigate or prosecute any alcohol or drug abuse patient.[facility] Center[facility] the event this information is protected by the Federal Confidentiality of Alcohol and Drug Abuse Patient Records regulations: The Federal rules restrict any use of the information to criminally investigate or prosecute any alcohol or drug abuse patient.[facility] Center[facility] the event this information is protected by the Federal Confidentiality of Alcohol and Drug Abuse Patient Records regulations: The Federal rules restrict any use of the information to criminally investigate or prosecute any alcohol or drug abuse patient.[facility] Center[facility] the event this information is protected by the Federal Confidentiality of Alcohol and Drug Abuse Patient Records regulations: The Federal rules restrict any use of the information to criminally investigate or prosecute any alcohol or drug abuse patient.[facility] Center[facility] the event this information is protected by the Federal Confidentiality of Alcohol and Drug Abuse Patient Records regulations: The Federal rules restrict any use of the information to criminally investigate or prosecute any alcohol or drug abuse patient.[facility] Center[facility] the event this information is protected by the Federal Confidentiality of Alcohol and Drug Abuse Patient Records regulations: The Federal rules restrict any use of the information to criminally investigate or prosecute any alcohol or drug abuse patient.[facility] Center[facility] the event this information is protected by the Federal Confidentiality of Alcohol and Drug Abuse Patient Records regulations: The Federal rules restrict any use of the information to criminally investigate or prosecute any alcohol or drug abuse patient.[facility] CenterIn the event this information is protected by the Federal Confidentiality of Alcohol and Drug Abuse Patient Records regulations: The Federal rules restrict any use of the information to criminally investigate or prosecute any alcohol or drug abuse patient.[facility] CenterIn the event this information is protected by the Federal Confidentiality of Alcohol and Drug Abuse Patient Records regulations: The Federal rules restrict any use of the information to criminally investigate or prosecute any alcohol or drug abuse patient.[facility] CenterIn the event this information is protected by the Federal Confidentiality of Alcohol and Drug Abuse Patient Records regulations: The Federal rules restrict any use of the information to criminally investigate or prosecute any alcohol or drug abuse patient.[facility] Center[facility] the event this information is protected by the Federal Confidentiality of Alcohol and Drug Abuse Patient Records regulations: The Federal rules restrict any use of the information to criminally investigate or prosecute any alcohol or drug abuse patient.[facility] CenterIn the event this information is protected by the Federal Confidentiality of Alcohol and Drug Abuse Patient Records regulations: The Federal rules restrict any use of the information to criminally investigate or prosecute any alcohol or drug abuse patient.[facility] CenterIn the event this information is protected by the Federal Confidentiality of Alcohol and Drug Abuse Patient Records regulations: The Federal rules restrict any use of the information to criminally investigate or prosecute any alcohol or drug abuse patient.[facility] CenterIn the event this information is protected by the Federal Confidentiality of Alcohol and Drug Abuse Patient Records regulations: The Federal rules restrict any use of the information to criminally investigate or prosecute any alcohol or drug abuse patient.[facility] CenterIn the event this information is protected by the Federal Confidentiality of Alcohol and Drug Abuse Patient Records regulations: The Federal rules restrict any use of the information to criminally investigate or prosecute any alcohol or drug abuse patient.[facility] CenterIn the event this information is protected by the Federal Confidentiality of Alcohol and Drug Abuse Patient Records regulations: The Federal rules restrict any use of the information to criminally investigate or prosecute any alcohol or drug abuse patient.[facility] CenterIn the event this information is protected by the Federal Confidentiality of Alcohol and Drug Abuse Patient Records regulations: The Federal rules restrict any use of the information to criminally investigate or prosecute any alcohol or drug abuse patient.[facility] CenterIn the event this information is protected by the Federal Confidentiality of Alcohol and Drug Abuse Patient Records regulations: The Federal rules restrict any use of the information to criminally investigate or prosecute any alcohol or drug abuse patient.[facility] the event this information is protected by the Federal Confidentiality of Alcohol and Drug Abuse Patient Records regulations: The Federal rules restrict any use of the information to criminally investigate or prosecute any alcohol or drug abuse patient.[facility] CenterIn the event this information is protected by the Federal Confidentiality of Alcohol and Drug Abuse Patient Records regulations: The Federal rules restrict any use of the information to criminally investigate or prosecute any alcohol or drug abuse patient.[facility] CenterIn the event this information is protected by [...] or prosecute any alcohol or drug abuse patient.[facility] CenterIn the event this information is protected by the Federal Confidentiality of Alcohol and Drug Abuse Patient Records regulations: The Federal rules restrict any use of the information to criminally investigate or prosecute any alcohol or drug abuse patient.[facility] CenterIn the event this information is protected by the Federal Confidentiality of Alcohol and Drug Abuse Patient Records regulations: The Federal rules restrict any use of the information to criminally investigate or prosecute any alcohol or drug abuse patient.[facility] CenterIn the event this information is protected by the Federal Confidentiality of Alcohol and Drug Abuse Patient Records regulations: The Federal rules restrict any use of the information to criminally investigate or prosecute any alcohol or drug abuse patient.[facility] CenterIn the event this information is protected by the Federal Confidentiality of Alcohol and Drug Abuse Patient Records regulations: The Federal rules restrict any use of the information to criminally investigate or prosecute any alcohol or drug abuse patient.[facility] CenterIn the event this information is protected by the Federal Confidentiality of Alcohol and Drug Abuse Patient Records regulations: The Federal rules restrict any use of the information to criminally investigate or prosecute any alcohol or drug abuse patient.[facility] CenterIn the event this information is protected by the Federal Confidentiality of Alcohol and Drug Abuse Patient Records regulations: The Federal rules restrict any use of the information to criminally investigate or prosecute any alcohol or drug abuse patient.[facility] CenterIn the event this information is protected by the Federal Confidentiality of Alcohol and Drug Abuse Patient Records regulations: The Federal rules restrict any use of the information to criminally investigate or prosecute any alcohol or drug abuse patient.[facility] CenterIn the event this information is protected by the Federal Confidentiality of Alcohol and Drug Abuse Patient Records regulations: The Federal rules restrict any use of the information to criminally investigate or prosecute any alcohol or drug abuse patient.[facility] CenterIn the event this information is protected by the Federal Confidentiality of Alcohol and Drug Abuse Patient Records regulations: The Federal rules restrict any use of the information to criminally investigate or prosecute any alcohol or drug abuse patient.[facility] CenterIn the event this information is protected by the Federal Confidentiality of Alcohol and Drug Abuse Patient Records regulations: The Federal rules restrict any use of the information to criminally investigate or prosecute any alcohol or drug abuse patient.[facility] CenterIn the event this information is protected by the Federal Confidentiality of Alcohol and Drug Abuse Patient Records regulations: The Federal rules restrict any use of the information to criminally investigate or prosecute any alcohol or drug abuse patient.[facility] CenterIn the event this information is protected by the Federal Confidentiality of Alcohol and Drug Abuse Patient Records regulations: The Federal rules restrict any use of the information to criminally investigate or prosecute any alcohol or drug abuse patient.[facility] CenterIn the event this information is protected by the Federal Confidentiality of Alcohol and Drug Abuse Patient Records regulations: The Federal rules restrict any use of the information to criminally investigate or prosecute any alcohol or drug abuse patient.[facility] CenterIn the event this information is protected by the Federal Confidentiality of Alcohol and Drug Abuse Patient Records regulations: The Federal rules restrict any use of the information to criminally investigate or prosecute any alcohol or drug abuse patient.[facility] CenterIn the event this information is protected by the Federal Confidentiality of Alcohol and Drug Abuse Patient Records regulations: The Federal rules restrict any use of the information to criminally investigate or prosecute any alcohol or drug abuse patient.[facility] CenterIn the event this information is protected by the Federal Confidentiality of Alcohol and Drug Abuse Patient Records regulations: The Federal rules restrict any use of the information to criminally investigate or prosecute any alcohol or drug abuse patient.[facility] CenterIn the event this information is protected by the Federal Confidentiality of Alcohol and Drug Abuse Patient Records regulations: The Federal rules restrict any use of the information to criminally investigate or prosecute any alcohol or drug abuse patient.[facility] CenterIn the event this information is protected by the Federal Confidentiality of Alcohol and Drug Abuse Patient Records regulations: The Federal rules restrict any use of the information to criminally investigate or prosecute any alcohol or drug abuse patient.[facility] CenterIn the event this information is protected by the Federal Confidentiality of Alcohol and Drug Abuse Patient Records regulations: The Federal rules restrict any use of the information to criminally investigate or prosecute any alcohol or drug abuse patient.[facility] CenterIn the event this information is protected by the Federal Confidentiality of Alcohol and Drug Abuse Patient Records regulations: The Federal rules restrict any use of the information to criminally investigate or prosecute any alcohol or drug abuse patient.[facility] CenterIn the event this information is protected by the Federal Confidentiality of Alcohol and Drug Abuse Patient Records regulations: The Federal rules restrict any use of the information to criminally investigate or prosecute any alcohol or drug abuse patient.[facility] CenterIn the event this information is protected by the Federal Confidentiality of Alcohol and Drug Abuse Patient Records regulations: The Federal rules restrict any use of the information to criminally investigate or prosecute any alcohol or drug abuse patient.[facility] CenterIn the event this information is protected by the Federal Confidentiality of Alcohol and Drug Abuse Patient Records regulations: The Federal rules restrict any use of the information to criminally investigate or prosecute any alcohol or drug abuse patient.[facility] CenterIn the event this information is protected by the Federal Confidentiality of Alcohol and Drug Abuse Patient Records regulations: The Federal rules restrict any use of the information to criminally investigate or prosecute any alcohol or drug abuse patient.[facility] CenterIn the event this information is protected by the Federal Confidentiality of Alcohol and Drug Abuse Patient Records regulations: The Federal rules restrict any use of the information to criminally investigate or prosecute any alcohol or drug abuse patient.[facility] CenterIn the event this information is protected by the Federal Confidentiality of Alcohol and Drug Abuse Patient Records regulations: The Federal rules restrict any use of the information to criminally investigate or prosecute any alcohol or drug abuse patient.[facility] CenterIn the event this information is protected by the Federal Confidentiality of Alcohol and Drug Abuse Patient Records regulations: The Federal rules restrict any use of the information to criminally investigate or prosecute any alcohol or drug abuse patient.[facility] CenterIn the event this information is protected by the Federal Confidentiality of Alcohol and Drug Abuse Patient Records regulations: The Federal rules restrict any use of the information to criminally investigate or prosecute any alcohol or drug abuse patient.[facility]In the event this information is protected by the Federal Confidentiality of Alcohol and Drug Abuse Patient Records regulations: The Federal rules restrict any use of the information to criminally investigate or prosecute any alcohol or drug abuse patient.[facility] CenterIn the event this information is protected by the Federal Confidentiality of Alcohol and Drug Abuse Patient Records regulations: The Federal rules restrict any use of the information to criminally investigate or prosecute any alcohol or drug abuse patient.[facility]In the event this information is protected by the Federal Confidentiality of Alcohol and Drug Abuse Patient Records regulations: The Federal rules restrict any use of the information to criminally investigate or prosecute any alcohol or drug abuse patient.[facility]In the event this information is protected by the Federal Confidentiality of Alcohol and Drug Abuse Patient Records regulations: The Federal rules restrict any use of the information to criminally investigate or prosecute any alcohol or drug abuse patient.[facility]In the event this information is protected by the Federal Confidentiality of Alcohol and Drug Abuse Patient Records regulations: The Federal rules restrict any use of the information to criminally investigate or prosecute any alcohol or drug abuse patient.[facility]In the event this information is protected by the Federal Confidentiality of Alcohol and Drug Abuse Patient Records regulations: The Federal rules restrict any use of the information to criminally investigate or prosecute any alcohol or drug abuse patient.[facility] CenterIn the event this information is protected by the Federal Confidentiality of Alcohol and Drug Abuse Patient Records regulations: The Federal rules restrict any use of the information to criminally investigate or prosecute any alcohol or drug abuse patient.[facility]In the event this information is protected by the Federal Confidentiality of Alcohol and Drug Abuse Patient Records regulations: The Federal rules restrict any use of the information to criminally investigate or prosecute any alcohol or drug abuse patient.[facility]In the event this information is protected by the Federal Confidentiality of Alcohol and Drug Abuse Patient Records regulations: The Federal rules restrict any use of the information to criminally investigate or prosecute any alcohol or drug abuse patient.[facility]In the event this information is protected by the Federal Confidentiality of Alcohol and Drug Abuse Patient Records regulations: The Federal rules restrict any use of the information to criminally investigate or prosecute any alcohol or drug abuse patient.[facility] CenterIn the event this information is protected by the Federal Confidentiality of Alcohol and Drug Abuse Patient Records regulations: The Federal rules restrict any use of the information to criminally investigate or prosecute any alcohol or drug abuse patient.[facility] CenterIn the event this information is protected by the Federal Confidentiality of Alcohol and Drug Abuse Patient Records regulations: The Federal rules restrict any use of the information to criminally investigate or prosecute any alcohol or drug abuse patient.[facility]In the event this information is protected by the Federal Confidentiality of Alcohol and Drug Abuse Patient Records regulations: The Federal rules restrict any use of the information to criminally investigate or prosecute any alcohol or drug abuse patient.[facility]In the event this information is protected by the Federal Confidentiality of Alcohol and Drug Abuse Patient Records regulations: The Federal rules restrict any use of the information to criminally investigate or prosecute any alcohol or drug abuse patient.[facility]In the event this information is protected by the Federal Confidentiality of Alcohol and Drug Abuse Patient Records regulations: The Federal rules restrict any use of the information to criminally investigate or prosecute any alcohol or drug abuse patient.[facility]In the event this information is protected by the Federal Confidentiality of Alcohol and Drug Abuse Patient Records regulations: The Federal rules restrict any use of the information to criminally investigate or prosecute any alcohol or drug abuse patient.[facility]In the event this information is protected by the Federal Confidentiality of Alcohol and Drug Abuse Patient Records regulations: The Federal rules restrict any use of the information to criminally investigate or prosecute any alcohol or drug abuse patient.[facility]In the event this information is protected by the Federal Confidentiality of Alcohol and Drug Abuse Patient Records regulations: The Federal rules restrict any use of the information to criminally investigate or prosecute any alcohol or drug abuse patient.[facility] the event this information is protected by the Federal Confidentiality of Alcohol and Drug Abuse Patient Records regulations: The Federal rules restrict any use of the information to criminally investigate or prosecute any alcohol or drug abuse patient.[facility]In the event this information is protected by the Federal Confidentiality of Alcohol and Drug Abuse Patient Records regulations: The Federal rules restrict any use of the information to criminally investigate or prosecute any alcohol or drug abuse patient.[facility] CenterIn the event this information is protected by [...] or prosecute any alcohol or drug abuse patient.[facility] CenterIn the event this information is protected by the Federal Confidentiality of Alcohol and Drug Abuse Patient Records regulations: The Federal rules restrict any use of the information to criminally investigate or prosecute any alcohol or drug abuse patient.[facility]In the event this information is protected by the Federal Confidentiality of Alcohol and Drug Abuse Patient Records regulations: The Federal rules restrict any use of the information to criminally investigate or prosecute any alcohol or drug abuse patient.[facility]In the event this information is protected by the Federal Confidentiality of Alcohol and Drug Abuse Patient Records regulations: The Federal rules restrict any use of the information to criminally investigate or prosecute any alcohol or drug abuse patient.[facility] CenterIn the event this information is protected by the Federal Confidentiality of Alcohol and Drug Abuse Patient Records regulations: The Federal rules restrict any use of the information to criminally investigate or prosecute any alcohol or drug abuse patient.[facility] Care Teams (unrecognized sec tion and content) Insurance Account Representative Relationship Specialty Start Date End Date Dipak Aguilar, DO [address] [place] [address] PCP - General Family Practice 11/10/15 Insurance Account Representative Relationship Specialty Start Date End Date Dipak Aguilar DO [address] [place] [address] PCP - General Family Practice 11/10/15 Insurance Account Representative Relationship Specialty Start Date End Date Dipak Aguilar DO [address] [facility] [place] [address] PCP - General Family Medicine 11/10/15 Insurance Account Representative Relationship Specialty Start Date End Date Dipak Aguilar, DO [address] [facility] [place] [address] PCP - General Family Medicine 11/10/15 Insurance Account Representative Relationship Specialty Start Date End Date Dipak Aguilar DO [address] [facility] [place] [address] PCP - General Family Medicine 11/10/15 Insurance Account Representative Relationship Specialty Start Date End Date Dipak Aguilar DO [address] [facility] [place] [address] PCP - General Family Medicine 11/10/15 Insurance Account Representative Relationship Specialty Start Date End Date Dipak Aguilar, DO [address] [place] [address] PCP - General Family Medicine 11/10/15 Insurance Account Representative Relationship Specialty Start Date End Date Dipak Aguilar, DO [address] [place] [address] PCP - General Family Medicine 11/10/15 Insurance Account Representative Relationship Specialty Start Date End Date Dipak Aguilar, DO [address] [place] [address] PCP - General Family Medicine 11/10/15 Insurance Account Representative Relationship Specialty Start Date End Date Dipak Aguilar, DO [address] [place] [address] PCP - General Family Medicine 11/10/15 Insurance Account Representative Relationship Specialty Start Date End Date Dipak Aguilar, DO [address] [place] [address] PCP - General Family Medicine 11/10/15 Insurance Account Representative Relationship Specialty Start Date End Date Dipak Aguilar, DO [address] [place] [address] PCP - General Family Medicine 11/10/15 Insurance Account Representative Relationship Specialty Start Date End Date Dipak Aguilar, DO [address] [place] [address] PCP - General Family Medicine 11/10/15 Insurance Account Representative Relationship Specialty Start Date End Date Dipak Aguilar, DO [address] [place] [address] PCP - General Family Medicine 11/10/15 Insurance Account Representative Relationship Specialty Start Date End Date Dipak Aguilar, DO [address] [place] [address] PCP - General Family Medicine 11/10/15 Insurance Account Representative Relationship Specialty Start Date End Date Dipak Aguilar DO [address] [facility] [address] PCP - General Family Medicine 11/10/15 Insurance Account Representative Relationship Specialty Start Date End Date Dipak Aguilar DO [address] [facility] [place] [address] PCP - General Family Medicine 11/10/15 Insurance Account Representative Relationship Specialty Start Date End Date Dipak Aguilar DO [address] [place] [address] PCP - General Family Medicine 11/10/15 Insurance Account Representative Relationship Specialty Start Date End Date Dipak Aguilar DO [address] [place] [address] PCP - General Family Medicine 11/10/15 Insurance Account Representative Relationship Specialty Start Date End Date Dipak Aguilar DO [address] [place] [address] PCP - General Family Medicine 11/10/15 Insurance Account Representative Relationship Specialty Start Date End Date Dipak Aguilar DO [address] [place] [address] PCP - General Family Medicine 11/10/15 Insurance Account Representative Relationship Specialty Start Date End Date Dipak Aguilar DO [address] [place] [address] PCP - General Family Medicine 11/10/15 Insurance Account Representative Relationship Specialty Start Date End Date Dipak Aguilar DO [address] [place] [address] PCP - General Family Medicine 11/10/15 Insurance Account Representative Relationship Specialty Start Date End Date Dipak Aguilar DO [address] [place] [address] PCP - General Family Medicine 11/10/15 Insurance Account Representative Relationship Specialty Start Date End Date Dipak Aguilar DO [address] [place] [address] PCP - General Family Medicine 11/10/15 Insurance Account Representative Relationship Specialty Start Date End Date Dipak Aguilar DO [address] [place] [address] PCP - General Family Medicine 11/10/15 Insurance Account Representative Relationship Specialty Start Date End Date Dipak Aguilar DO [address] [place] [address] PCP - General Family Medicine 11/10/15 Insurance Account Representative Relationship Specialty Start Date End Date Dipak Aguilar DO [address] [place] [address] PCP - General Family Medicine 11/10/15 Insurance Account Representative Relationship Specialty Start Date End Date Dipak Aguilar DO [address] [place] [address] PCP - General Family Medicine 11/10/15 Insurance Account Representative Relationship Specialty Start Date End Date Dipak Aguilar DO [address] [place] [address] PCP - General Family Medicine 11/10/15 Insurance Account Representative Relationship Specialty Start Date End Date Dipak Aguilar DO [address] [place] [address] PCP - General Family Medicine 11/10/15 Ananya Corbin, LUPE [address] [place] [address] Reliability Manager Family Medicine 10/02/2009/23 Insurance Account Representative Relationship Specialty Start Date End Date Dipak Aguilar DO [address] [place] [address] PCP - General Family Medicine 11/10/15 Insurance Account Representative Relationship Specialty Start Date End Date Dipak Aguilar DO [address] [place] [address] PCP - General Family Medicine 11/10/15 Insurance Account Representative Relationship Specialty Start Date End Date Dipak Aguilar DO [address] [place] [address] PCP - General Family Medicine 11/10/15 Insurance Account Representative Relationship Specialty Start Date End Date Dipak Aguilar DO [address] [place] [address] PCP - General Family Medicine 11/10/15 Insurance Account Representative Relationship Specialty Start Date End Date Dipak Aguilar DO [address] [place] [address] PCP - General Family Medicine 11/10/15 Insurance Account Representative Relationship Specialty Start Date End Date Dipak Aguilar DO [address] [place] [address] PCP - General Family Medicine 11/10/15 Insurance Account Representative Relationship Specialty Start Date End Date Dipak Aguilar DO [address] [place] [address] PCP - General Family Medicine 11/10/15 Insurance Account Representative Relationship Specialty Start Date End Date Dipak Aguilar DO [address] [facility] [place] [address] PCP - General Family Medicine 11/10/15 Insurance Account Representative Relationship Specialty Start Date End Date Dipak Aguilar DO [address] [place] [address] PCP - General Family Medicine 11/10/15 Radha Berman, CRIMPING PRESS OPERATOR.PRIMER CHARGING TOOL SETTER [address] [place] [address] Pound Attendant Family Medicine 01/29/24 Judith Garcia, CRIMPING PRESS OPERATOR.PRIMER CHARGING TOOL SETTER [address] [place] [address] Pound Attendant Family Medicine 01/29/24 Insurance Account Representative Relationship Specialty Start Date End Date Dipak Aguilar DO [address] [place] [address] PCP - General Family Medicine 11/10/15 Radha Berman, CRIMPING PRESS OPERATOR.PRIMER CHARGING TOOL SETTER [address] [place] [address] Pound Attendant Family Medicine 01/29/24 Judith Garcia, CRIMPING PRESS OPERATOR.PRIMER CHARGING TOOL SETTER [address] [place] [address] Pound Attendant Family Medicine 01/29/24 Insurance Account Representative Relationship Specialty Start Date End Date Dipak Aguilar DO [address] [place] [address] PCP - General Family Medicine 11/10/15 Judith Garcia, CRIMPING PRESS OPERATOR.PRIMER CHARGING TOOL SETTER [address] [facility] [place] [address] Pound Attendant Family [facility] 01/29/24 Insurance Account Representative Relationship Specialty Start Date End Date Dipak Aguilar DO [address] [facility] [place] [address] PCP - General Family Medicine 11/10/15 Judith Garcia, CRIMPING PRESS OPERATOR.PRIMER CHARGING TOOL SETTER [address] [facility] [place] [address] [facility] Insurance Account Representative Relationship Specialty Start Date End Date Dipak Aguilar DO [address] [facility] [place] [address] PCP - General Family Medicine 11/10/15 Judith Garcia, CRIMPING PRESS OPERATOR.PRIMER CHARGING TOOL SETTER [address] [facility] [place] [address] [facility] 01/29/24 Insurance Account Representative Relationship Specialty Start Date End Date Dipak Aguilar DO [address] [facility] [place] [address] PCP - General Family Medicine 11/10/15 JoseJudith, CRIMPING PRESS OPERATOR.PRIMER CHARGING TOOL SETTER [address] [facility] [place] [address] [facility] 01/29/24 Insurance Account Representative Relationship Specialty Start Date End Date Dipak Aguilar DO [address] [facility] [place] [address] PCP - General Family Medicine 11/10/15 [facility], CRIMPING PRESS OPERATOR.PRIMER CHARGING TOOL SETTER [address] [place] [address] Pound Attendant Family [facility] 01/29/24 Insurance Account Representative Relationship Specialty Start Date End Date Dipak Aguilar, [address] [place] [address] PCP - General Family Medicine 11/10/15 [facility], CRIMPING PRESS OPERATOR.PRIMER CHARGING TOOL SETTER [address] [place] [address] [facility] 01/29/24 Insurance Account Representative Relationship Specialty Start Date End Date Dipak Aguilar, [address] [place] [address] PCP - General Family Medicine 11/10/15 [facility], CRIMPING PRESS OPERATOR.PRIMER CHARGING TOOL SETTER [address] [place] [address] [facility] 01/29/24 Insurance Account Representative Relationship Specialty Start Date End Date Dipak Aguilar DO [address] [place] [address] PCP - General Family Medicine 11/10/15 [facility], CRIMPING PRESS OPERATOR.PRIMER CHARGING TOOL SETTER [address] [place] [address] [facility] 01/29/24 Insurance Account Representative Relationship Specialty Start Date End Date Dipak Aguilar DO [address] [place] [address] PCP - General Family Medicine 11/10/15 [facility]aren[facility]ith, CRIMPING PRESS OPERATOR.PRIMER CHARGING TOOL SETTER [address] [facility] [place] [address] [facility] 01/29/24 Insurance Account Representative Relationship Specialty Start Date End Date Dipak Aguilar DO [address] [facility] [place] [address] PCP - General Family Medicine 11/10/15 [facility], CRIMPING PRESS OPERATOR.PRIMER CHARGING TOOL SETTER [address] [facility] [place] [address] [facility] 01/29/24 Insurance Account Representative Relationship Specialty Start Date End Date Dipak Aguilar DO [address] [facility] [place] [address] PCP - General Family Medicine 11/10/15 [facility], CRIMPING PRESS OPERATOR.PRIMER CHARGING TOOL SETTER [address] [facility] [place] [address] [facility] 01/29/24 Insurance Account Representative Relationship Specialty Start Date End Date Dipak Aguilar DO [address] [facility] [place] [address] PCP - General Family Medicine 11/10/15 [facility], CRIMPING PRESS OPERATOR.PRIMER CHARGING TOOL SETTER [address] [facility] [place] [address] [facility] 01/29/24 Insurance Account Representative Relationship Specialty Start Date End Date Dipak Aguilar, [address] [facility] [place] [address] PCP - General Family Medicine 11/10/15 [facility] Judith, CRIMPING PRESS OPERATOR.PRIMER CHARGING TOOL SETTER [address] [place] [address] [facility] 01/29/24 Insurance Account Representative Relationship Specialty Start Date End Date Dipak Aguilar DO [address] [place] [address] PCP - General Family Medicine 11/10/15 [facility] Judith, CRIMPING PRESS OPERATOR.PRIMER CHARGING TOOL SETTER [address] [place] [address] [facility] 01/29/24 Shayla Hines, CRIMPING PRESS OPERATOR.PRIMER CHARGING TOOL SETTER [address] [place] [address] [facility] 08/06/24 Insurance Account Representative Relationship Specialty Start Date End Date Dipak Aguilar DO [address] [place] [address] PCP - General [facility] Medicine 11/10/15 [facility], CRIMPING PRESS OPERATOR.PRIMER CHARGING TOOL SETTER [address] [place] [address] [facility] 01/29/24 Shayla Hines, CRIMPING PRESS OPERATOR.PRIMER CHARGING TOOL SETTER [address] [place] [address] [facility] 08/06/24 Team Status: Active Member Role/Relationship Status Dates Dr. Dipak Aguilar DO Primary Care Provider Active Team Status: Inactive Member Role/Relationship Status Dates Dr. Dipak Aguilar DO Primary Care Provider Active Start: September 11, 2024 End: September 11, 2024 Dr. Sukhdev Mark MD Emergency Provider Active Sta rt: September 11, 2024 End: September 11, 2024 Insurance Account Representative Relationship Specialty Start Date End Date Dipak Aguilar DO [address] [facility] [place] [address] PCP - General Family Medicine 11/10/15 [facility], CRIMPING PRESS OPERATOR.PRIMER CHARGING TOOL SETTER [address] [facility] [place] [address] [facility] 01/29/24 Shayla Hines, CRIMPING PRESS OPERATOR.PRIMER CHARGING TOOL SETTER [address] [place] [address] [facility] 08/06/24 Insurance Account Representative Relationship Specialty Start Date End Date Dipak Aguilar DO [address] [place] [address] PCP - General Family Medicine 11/10/15 [facility], CRIMPING PRESS OPERATOR.PRIMER CHARGING TOOL SETTER [address] [place] [address] [facility] 01/29/24 Shayla Hines, CRIMPING PRESS OPERATOR.PRIMER CHARGING TOOL SETTER [address] [place] [address] [facility] 08/06/24 Insurance Account Representative Relationship Specialty Start Date End Date Dipak Aguilar DO [address] [facility] [place] [address] PCP - General Family Medicine 11/10/15 [facility], CRIMPING PRESS OPERATOR.PRIMER CHARGING TOOL SETTER [address] [facility] [place] [address] [facility] 01/29/24 Shayla Hines, CRIMPING PRESS OPERATOR.PRIMER CHARGING TOOL SETTER [address] [place], [place] [address] [facility] 08/06/24 Insurance Account Representative Relationship Specialty Start Date End Date Dipak Aguilar DO [address] [place], [place] [address] PCP - General Family Medicine 11/10/15 Judith Garcia, CRIMPING PRESS OPERATOR.PRIMER CHARGING TOOL SETTER [address] [place], [place] [address] [facility] 01/29/24 Shayla Hines, CRIMPING PRESS OPERATOR.PRIMER CHARGING TOOL SETTER [address] [place], [place] [id number] [facility] 08/06/24 Team Status: Inactive Member Role/Relationship Status Dates Dr. Dipak Aguilar DO Primary Care Provider Active Start: September 11, 2024 End: September 11, 2024 Dr. Sukhdev Mark MD Attending Provider Active Sta rt: September 11, 2024 End: September 11, 2024 Dr. Sukhdev Mark MD Emergency Provider Active Sta rt: September 11, 2024 End: September 11, 2024 Team Status: Inactive Member Role/Relationship Status Dates Dr. Dipak Aguilar DO Primary Care Provider Active Start: October 14, 2024 End: October 14, 2024 Dr. 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 Follow Up 08/05/2022 Reason Comments Catheter Removal Reason Comments CARD Follow Up Annual Reason Comments Medication Problem Reason Comments Urinary Frequency Nocturia Difficulty Urinating Reason Comments requesting a GI referral Reason Onset Date Comments Lead Software Developer - Hospital Follow Up 10/20/2022 Reason Comments [...] Spirometry Specialty Diagnoses / [facility] Diagnoses Wheezing Asthma-COPD overlap syndrome (HCC) SOB (shortness of breath) on exertion Decreased activity tolerance Productive cough Procedures LUNG VOLUMES Judith Garcia, CRIMPING PRESS OPERATOR.PRIMER CHARGING TOOL SETTER [address] [place] [address] [facility] [address] [place] [id number] Referral ID Status Reason Start Date Expiration Date V isits Requested Visits Authorized [id number] Closed Auto-Generate d Referral 11/29/2023 12/28/2024 1 1 Specialty Diagnoses / Procedures [facility] Diagnoses Wheezing Asthma-COPD overlap syndrome (HCC) SOB (shortness of breath) on exertion Decreased activity tolerance Productive cough Procedures SPIROMETRY - BASELINE AND POST DILATOR BRNCDILAT RSPSE SPMTRY PRE&POST-BRNCDILAT ADMN Judith Garcia, CRIMPING PRESS OPERATOR.PRIMER CHARGING TOOL SETTER [address] [place] [address] [address] Referral ID Status Reason Start Date Expiration Date V isits Requested Visits Authorized [id number] Closed Auto-Generate d Referral 11/29/2023 12/28/2024 [address] Specialty Diagnoses / Procedures Referred By [facility] Referred To Contact CT IMAGING Diagnoses Wheezing Asthma-COPD overlap syndrome (HCC) SOB (shortness of breath) on exertion Decreased activity tolerance Productive cough Procedures CT CHEST WO IVCON DIAGNOSTIC COMPUTED TOMOGRAPHY THORAX W/O CNTRST Judith Garcia, CRIMPING PRESS OPERATOR.PRIMER CHARGING TOOL SETTER [address] [place] [address] [place] [address] Referral ID Status Reason Start Date Expiration Date V isits Requested Visits Authorized [id number] Closed Auto-Generate d Referral 11/29/2023 12/28/2024 1 1 Reason Comments Radiology [place] Specialty Diagnoses / Procedures Referred By [facility] Referred To Contact [facility] Diagnoses Shortness of breath Procedures NM CARDIAC PERF STRESS/EXERCISE MYOCARDIAL SPECT MULTIPLE STUDIES Analisa Nicole MD [address] [facility], [address] [place] [address] [facility] [address] [place] [address] Referral ID Status Reason Start Date Expiration Date V isits Requested Visits Authorized [id number] Closed Auto-Generate d Referral 09/26/2023 10/11/2024 1 [...] NEW HIGH MDM 60 MINUTES Radha Berman, CRIMPING PRESS OPERATOR.PRIMER CHARGING TOOL SETTER [address] [place] [address] Phone: tel: fax: Referral ID Status Reason Start Date Expiration Date V isits Requested Visits Authorized [id number] Closed PCP Requested Referral 05/16/2024 05/16/2025 1 1 Reason Comments er follow up. , stitch removal by rt eye and rt hand Reason Comments Suture Removal Reason Comments Patent Update: Elevated BP Reason Comments Nausea Goals (unrecognized section and content) Goals may be documented in a n alternate sectionGoals may be documented in an alternate sectionGoals may be documented in an [...] BE BASED ON THE PRIMARY CLINICAL RECORDS. [facility] [employer] [facility]. provides no warranty or guarantee of the accuracy or completeness of information in this document.
--- NOTE | 2024-10-26 23:53 | ED.RN ---
Report called to RN in ICU. Requested 20 mins to before patient is okay for floor.
[2024-10-27] VITALS (35 sets, daily range): BP systolic 89–165; BP diastolic 49–126; PULSE 80–136; RESP 18–28; TEMP 36.4–37.4; O2SAT 89–97; BMI 26.6
--- NOTE | 2024-10-27 00:32 | ECHOCS_ITS ---
Reason For Study Reason For Study: AFIB/FLUTTER Procedure This was a 2D Doppler, Color Flow transthoracic echocardiogram. The study was technically difficult. Due to suboptimal imaging windows & arrhythmia. Contrast injection was performed. Exam performed portable in ICU/CCU. Left Ventricle Normal LV size. The estimated ejection fraction is 70 %. Unable to assess diastolic dysfunction. No regional wall motion abnormalities noted. Right Ventricle Normal RV size. Normal systolic function. Atria The left atrium is mildly enlarged. The right atrium is mildly enlarged. No doppler evidence for ASD. Mitral Valve There is no mitral valve stenosis. Trivial mitral valve insufficiency. Tricuspid Valve There is no tricuspid stenosis. Trivial tricuspid valve insufficiency. Pulmonary artery systolic pressure is 35-40 mmHg. Aortic Valve Trisinus/trileaflet aortic valve. There is no aortic stenosis. No aortic valve insufficiency. Pulmonic Valve There is no pulmonic valvular stenosis. Trivial pulmonic valve insufficiency. Great Vessels Normal sized aortic root. Pericardium/Pleural No pericardial effusion. Medication Diluted definity 2.5ml given slow IV push to enhance endocardial definition. MMode/2D Measurements & Calculations LVIDd: 4.6 cm IVSd: 1.1 cm Ao root diam: 3.9 cm LVIDs: 2.5 cm LVPWd: 1.2 cm RVDd: 3.9 cm FS: 46.7 % LAV(MOD-bp): 90.2 ml LVAd ap4: 19.7 cm2 SV(MOD-sp4): 26.6 ml LAV(MOD-bp) Indexed: 42.5 ml/m2 LVLd ap4: 7.0 cm SI(MOD-sp4): 12.5 ml/m2 LAV(MOD-sp2): 87.0 ml EDV(MOD-sp4): 46.5 ml LAV(MOD-sp4): 87.0 ml EDV(sp4-el): 46.7 ml LVAs ap4: 11.3 cm2 LVLs ap4: 6.3 cm ESV(MOD-sp4): 19.9 ml ESV(sp4-el): 17.2 ml EF(MOD-sp4): 57.3 % EF(sp4-el): 63.2 % SV(sp4-el): 29.5 ml LA A4 area: 26.9 cm2 LA dimension(2D): 4.8 cm RA A4 area: 21.8 cm2 TAPSE: 1.6 cm Doppler Measurements & Calculations MV E max swapna: 93.4 cm/sec Ao V2 max: 98.4 cm/sec LV V1 max: 66.5 cm/sec Ao max P.9 mmHg LV V1 max P.8 mmHg Ao V2 mean: 63.9 cm/sec LV V1 mean P.79 mmHg Ao mean P.8 mmHg LV V1 mean: 41.2 cm/sec Ao V2 VTI: 11.6 cm LV V1 VTI: 10.7 cm AV (velocity ratio): 0.92 PA V2 max: 83.2 cm/sec TR max swapna: 258.8 cm/sec PI dec slope: 122.5 cm/sec2 TR max P.8 mmHg ECHO/Echo Complete W/ Contrast Interpretation Summary The estimated ejection fraction is 70 %. The left atrium is mildly enlarged. The right atrium is mildly enlarged. Trivial mitral valve insufficiency. Ordering Physician: Fernanda Triplett Referring Physician: Dipak Aguilar Performed By: Citlalli Arzate, ANUPAMA, RVT
[2024-10-27] MEDS: 0.9% Normal Saline (1000mL) 1,000 ML 999 ML IV (01:01)
[2024-10-27 01:05] LABS: Magnesium 1.4 mg/dL (1.5-2.2)
[2024-10-27] MEDS: Pantoprazole Sodium 40 MG in 0.9% Normal Saline (100mL MB+) 100 ML 330 MG IV ×2 (01:14→21:02)
[2024-10-27] MEDS: Vancomycin HCl 2,000 MG in 0.9% Normal Saline (500mL Bag) 500 ML 250 MG IV (01:15)
[2024-10-27] MEDS: 0.9% Normal Saline (1000mL) 1,000 ML 75 ML IV (01:16)
[2024-10-27 01:47] LABS: Reflex Lactate? Y
--- NOTE | 2024-10-27 03:48 | PCM.RX.CS ---
Consult Antibiotic Management Pharmacy has been consulted to manage selected antibiotic: Vancomycin Type of Intervention Type of Consult: New start Labs Labs: Sodium 140 mmol/L (133-145) 10/26/24 18:04 Potassium 4.1 mmol/L (3.3-5.1) 10/26/24 18:04 Chloride 102 mmol/L (98-108) 10/26/24 18:04 Carbon Dioxide 23.2 mmol/L (21.0-32.0) 10/26/24 18:04 Anion Gap 15 (5-15) 10/26/24 18:04 BUN 20 mg/dL (4-19) H 10/26/24 18:04 Creatinine 1.27 mg/dL (0.70-1.20) H 10/26/24 18:04 Est GFR (MDRD) Non-Af 54 (>60) L 10/26/24 18:04 BUN/Creatinine Ratio 15.6 RATIO (10-20) 10/26/24 18:04 Glucose 144 mg/dL (70-99) H 10/26/24 18:04 Microbiology Microbiology: Microbiology 10/27/24 02:25 Urine, Random Legionella Antigen - Final 10/27/24 02:25 Urine, Random Streptococcus pneumoniae Antigen (M - Final Dosing Weight Weight used for dosin.3 kg Estimated Creatinine Clearance Estimated Creatinine Clearance: 44.13 Goal Trough Goal Trough: 15-20 mcg/mL Pharmacy Plan for Drug Dosing Pharmacy Plan for Drug Dosing: Pharmacy Service will continue to monitor and adjust dosing as required. LOADING DOSE 2000MG GIVEN 10/27 @ 0115. START 750MG Q12H AND DRAW TROUGH PRIOR TO 4TH DOSE Follow-Up Labs Follow-Up Labs: Trough: Vancomycin Date/Time Labs Ordered Labs to be done on [date and time ordered]: 10/28 @ 1300
[2024-10-27] MEDS: Piperacil/Tazobactam 3.375 GM in 0.9% Normal Saline (50mL MB+) 50 ML IV ×3 (06:27→21:03)
[2024-10-27 06:32] LABS: Hematocrit 41.7 % (40-54); Hemoglobin 13.7 g/dL (13.0-16.5); Immature Granulocytes Count 0.210 X10^3/uL (0.0-0.0); Mean Corp Hgb Conc 32.9 g/dL (32-36); Mean Corpuscular Volume 89.9 fL (80-94); Mean Platelet Vol. 9.8 fl (6.2-12.0); NRBC Flagged by Analyzer 0 % (0-5); POSITIVE DIFFERENTIAL YES; POSITIVE MORPHOLOGY YES; Platelet Count 218 K/mm3 (150-450); RBC Distribution Width CV 15.4 % (11.6-14.6); RBC Distribution Width SD 49.7 fl (35.1-43.9); Red Blood Count 4.64 M/mm3 (4.6-6.2); White Blood Count 24.0 K/mm3 (4.4-11.0)
[2024-10-27 06:35] LABS: Differential Indicated SCAN CRITERIA MET
--- NOTE | 2024-10-27 06:49 | PCMCONS.TICU ---
HPI Consult Data Date of Consult: 10/27/24 HPI Narrative HPI Narrative: HPI: 89yo M w/ h/o CVA, COPD, h/o severe COVID-19 03/2024, CKD, paroxysmal Afib on eliquis, h/o histoplasmosis, BPH s/p TURP who was admitted for sepsis and cholecystitis. at bedside assisted with history. Yesterday he developed acute onset R sided abd pain, nausea without vomiting, and chills. He also had a fall about 1 week prior with some bruising to his face. On arrival here he was noted to be in Afib w/ RVR, lactic acidosis, and imaging showed acute cholecystitis. He was started on empiric IV abx and admitted to ICU. Received IV metop and labetalol for RVR with only marginal improvement. Surgeon consulted and will see this AM. Denies vomiting, diarrhea, syncope, presyncope, dysphagia, odynophagia, chest pain, reflux symptoms, dysuria, hematuria, melena, hematochezia, seizures, paralysis, or other neurological changes. ROS: 12-point ROS negative except as per HPI PFSH Medical History Type 2 diabetes mellitus Hyperlipidemia HTN (hypertension) Pulmonary hypertension Diverticulosis Insomnia Atrial fibrillation with RVR Histoplasmosis GERD (gastroesophageal reflux disease) History of skin cancer Solar keratosis Ulcer of right leg Burn scar Home Medications ?Medication ?Instructions ?Recorded ?Last Taken ?Type omeprazole 40 mg capsule,delayed 20 mg PO DAILY reflux 07/22/15 09/05/19 06:00 History release albuterol sulfate 90 mcg/actuation 1 puff PO Q6H shortness of breath 09/05/19 09/05/19 12:00 History breath activated powder inhaler multivitamin 1 tab PO QWEEK 09/25/19 Unknown History apixaban 5 mg tablet 5 mg PO BID #180 tabs 09/26/19 Unknown Rx cholecalciferol (vitamin D3) 50 50 mcg PO DAILY 09/26/19 Unknown History mcg (2,000 unit) tablet metoprolol tartrate 50 mg tablet 50 mg PO BID #180 tabs 09/26/19 Unknown Rx tadalafil 5 mg tablet 5 mg PO DAILY 09/26/19 Unknown History Lactobacillus acidophilus 10 10,000 mmu cells PO DAILY 09/30/23 09/30/23 History billion cell capsule (Probiotic) supplement apixaban 5 mg tablet (Eliquis) 5 mg PO BID blood thinner 09/30/23 09/30/23 History calcium 600 mg (as 1 tab PO DAILY supplement 09/30/23 09/30/23 History carbonate)-vitamin D3 10 mcg (400 unit) tablet fluticasone fur. 200 mcg-umeclid 1 ea inhalation DAILY breathing 09/30/23 09/30/23 History 62.5 mcg-vilant 25 mcg inhalat.powder (Trelegy Ellipta) metoprolol tartrate 50 mg tablet 50 mg PO BID heart 09/30/23 09/30/23 History multivitamin (Daily Multi-Vitamin 1 tab PO DAILY supplement 09/30/23 09/30/23 History tablet) omeprazole 20 mg capsule,delayed 20 mg PO DAILY acid reflux 09/30/23 09/30/23 History release furosemide 20 mg tablet 20 mg PO DAILY PRN swelling 10/26/24 Unknown History hydralazine 25 mg tablet mg PO 10/26/24 Unknown History ipratropium 0.5 mg-albuterol 3 mg 3 ml inhalation TID 10/26/24 Unknown History (2.5 mg base)/3 mL nebulization soln losartan 100 mg tablet 100 mg PO DAILY 10/26/24 Unknown History magnesium 200 mg tablet 200 mg PO DAILY 10/26/24 Unknown History metformin 500 mg tablet 500 mg PO BID 10/26/24 Unknown History rosuvastatin 20 mg tablet 20 mg PO DAILY 10/26/24 Unknown History Allergy/AdvReac Type Severity Reaction Status Date / Time No Known Allergies Allergy Verified 10/26/24 16:44 Family History Mother Breast cancer Father Colon cancer Melanoma Brother COPD (chronic obstructive pulmonary disease) Grandfather Multiple myeloma Surgical History History of left hip replacement History of arthroscopic knee surgery History of skin graft History of transurethral resection of prostate History of right hip replacement History of rotator cuff surgery History of tonsillectomy and adenoidectomy Social History household members: spouse Smoking Status: Former smoker how long ago did patient quit smokin years ago alcohol intake: current alcohol intake frequency: a few times a week Alcohol type: wine substance use type: does not use caffeine: No Objective Data Objective Data Vital Signs: Vital Signs Last response Temperature 37.4 C H 10/27/24 00:39 Temperature Source Temporal 10/27/24 00:39 Pulse Rate 125 H 10/27/24 06:00 Respiratory Rate 23 H 10/27/24 06:00 Respiratory Effort Normal, Non-Labored 10/27/24 04:00 Respiratory Depth Normal 10/27/24 04:00 Respiratory Pattern Normal 10/27/24 04:00 Blood Pressure 111/73 10/27/24 06:00 Blood Pressure Mean 85 10/27/24 06:00 Blood Pressure Source Monitor 10/27/24 06:00 Blood Pressure Position Semi-Fowlers 10/27/24 03:00 Blood Pressure Location Right Arm 10/27/24 03:00 Pulse Ox 96 10/27/24 06:00 Oxygen Delivery Method Nasal Cannula 10/27/24 06:00 Oxygen Flow Rate (L/min) 5 10/27/24 06:00 I&O: I&O Last 24 Hours 10/26/24 10/26/24 10/27/24 11:59 23:59 11:59 Intake Total 50 / 50 2640 / 2640 Output Total 100 / 100 Balance 50 / 50 2540 / 2540 I&O: Total Stay 10/26/24 16:39 thru 10/27/24 04:39 Intake Total 2690 Output Total 100 Balance 2590 Current Meds Ordered / Administered: Current meds ordered / Administered Generic Name Dose Route Start Last Admin Trade Name Freq PRN Reason Stop Dose Admin Acetaminophen 650 mg 10/27/24 00:32 Acetaminophen 650 Mg Suppository RC Q4H PRN PRN Fever, pain 1-10 Acetaminophen 650 mg 10/27/24 00:32 Acetaminophen 325 Mg Tablet PO Q4H PRN PRN Fever, pain 1-10/10 Al Hydroxide/Mg Hydroxide 30 ml 10/27/24 00:32 Mag Hydrox/Al Hydrox/Simeth 30 Ml Udc PO Q6H PRN PRN Gastric Burning Albuterol Sulfate 2.5 mg 10/27/24 00:32 Albuterol 2.5 Mg/3 Ml Vial.Neb. INHALATION Q2H PRN PRN Dyspnea, wheezing Atorvastatin Calcium 40 mg 10/27/24 22:00 Atorvastatin Calcium 40 Mg Tablet PO QHS SOLEDAD Calamine/Phenol 1 applic 10/27/24 10:00 Menthol/Lanolin/Calamine/Znox 113 Gm Tube TOPICAL 4X/DAY SOLEDAD Protocol Glucagon 1 mg 10/27/24 00:32 Glucagon 1 Mg/Ml Syringe IM X1 PRN HYPOGLYCEMIA Protocol Guaifenesin 10 ml 10/27/24 00:32 Guaifenesin 10 Ml Udc (200mg/10ml) PO Q4H PRN PRN COUGH Hydralazine HCl 10 mg 10/27/24 00:32 Hydralazine 20 Mg/Ml Vial IV Q4H PRN PRN SBP > 160 Protocol Sodium Chloride 1,000 mls @ 75 mls/hr 10/27/24 01:00 10/27/24 01:16 IV 10/27/24 07:39 75 mls/hr .[id number] SOLEDAD Administration Vancomycin IV-PHARMACY TO DOSE 500 mls @ 250 mls/hr 10/27/24 00:32 1 each/ Sodium Chloride IV X1 PRN Rx to Dose Protocol Pantoprazole Sodium 40 mg/ 100 mls @ 330 mls/hr 10/27/24 00:32 10/27/24 01:35 Sodium Chloride IV Infused Q12 SOLEDAD Infusion Piperacillin Sod/Tazobactam 50 mls @ 12.5 mls/hr 10/27/24 06:00 10/27/24 06:27 Sod 3.375 gm/ Sodium Chloride IV 12.5 mls/hr Q8 SOLEDAD Administration Azithromycin 500 mg/ Sodium 255 mls @ 255 mls/hr 10/27/24 10:00 Chloride IV 11/01/24 10:01 Q24 SOLEDAD Dextrose 250 mls @ 0 mls/hr 10/27/24 00:32 Dextrose 10%-Water IV .Q0M PRN HYPOGLYCEMIA Protocol As Directed Sodium Chloride 250 mls @ 15 mls/hr 10/27/24 01:21 IV .[id number] PRN Saline Flush Sodium Chloride 250 mls @ 15 mls/hr 10/27/24 01:21 IV .[id number] PRN Additional IVPB Infusion Vancomycin HCl 750 mg/ Sodium 265 mls @ 250 mls/hr 10/27/24 13:30 Chloride IV Q12H SOLEDAD Insulin Human Lispro 0 unit 10/27/24 00:32 10/27/24 06:27 Insulin Lispro 100 Unit/Ml Insuln.Pen SC Not Given Q6 [facility] Protocol Ipratropium Fate 0.5 mg 10/27/24 00:32 Ipratropium 0.5 Mg/2.5 Ml Solution INHALATION Q4HWA.RT [facility] Melatonin 3 mg 10/27/24 00:32 Melatonin 3 Mg Tablet PO QHS PRN PRN INSOMNIA Metoprolol Tartrate 50 mg 10/27/24 10:00 Metoprolol Tartrate 50 Mg Tablet PO BID [facility] Protocol Morphine Sulfate 2 mg 10/27/24 00:32 10/27/24 01:01 Morphine 2 Mg/Ml Syringe IV 2 mg Q3H PRN PRN Administration Pain Score 6-10 Ondansetron HCl 4 mg 10/27/24 00:32 Ondansetron 4 Mg/2 Ml Vial IV Q8H PRN PRN NAUSEA/VOMITING Oxycodone HCl 2.5 mg 10/27/24 00:32 Oxycodone 5 Mg Tablet PO Q4H PRN PRN Pain Score 4-10 Senna/Docusate Sodium 2 tablet 10/27/24 00:32 Senna/Docusate Sodium 1 Tablet PO BID PRN PRN Constipation Sodium Chloride 10 - 40 ml 10/27/24 01:21 0.9% Saline Lock 10 Ml Syringe IV UD PRN SALINE FLUSH Vancomycin Protocol 1 lab 10/28/24 12:00 Vancomycin Trough/Random Due MC 10/28/24 14:00 DAILY [facility] Lab / Micro Data 10/27/24 06:23 10/27/24 06:23 Labs: Laboratory Results - last 24 hr 10/26/24 18:04: WBC 15.8 H, RBC 5.16, Hgb 15.2, Hct 45.8, MCV 88.8, MCH 29.5, MCHC 33.2, RDW Std Deviation 49.2 H, RDW Coeff of Pollo 15.2 H, Plt Count 285, MPV 10.5, Immature Gran % (Auto) 1.400 H, Neut % (Auto) 81.0 H, Lymph % (Auto) 10.5 L, Banner % (Auto) 6.0, Eos % (Auto) 0.4, Baso % (Auto) 0.7, Absolute Neuts (auto) 12.8 H, Absolute Lymphs (auto) 1.66, Nucleated RBC % 0, Sodium 140, Potassium 4.1, Chloride 102, Carbon Dioxide 23.2, Anion Gap 15, BUN 20 H, Creatinine 1.27 H, Estim Creat Clear Calc 44.13 L, Est GFR (MDRD) Non-Af 54 L, BUN/Creatinine Ratio 15.6, Glucose 144 H, Calcium 10.7, Phosphorus 3.2, Magnesium 1.4 L, Total Bilirubin 1.11, AST 34, ALT 18, Alkaline Phosphatase 120, Total Protein 8.1, Albumin 4.5, Globulin 3.6, Albumin/Globulin Ratio 1.3, Lipase 15 10/26/24 21:44: Lactic Acid 3.2 H* 10/27/24 01:09: POC Glucose 95 10/27/24 02:20: Lactic Acid 2.4 H* 10/27/24 06:23: WBC 24.0 H, RBC 4.64, Hgb 13.7, Hct 41.7, MCV 89.9, MCH 29.5, MCHC 32.9, RDW Std Deviation 49.7 H, RDW Coeff of Pollo 15.4 H, Plt Count 218, MPV 9.8, Immature Gran % (Auto) 0.900, Neut % (Auto) 91.2 H, Lymph % (Auto) 3.1 L, Banner % (Auto) 4.2, Eos % (Auto) 0.0, Baso % (Auto) 0.6, Absolute Neuts (auto) 21.9 H, Absolute Lymphs (auto) 0.75 L, Nucleated RBC % 0 Micro: Microbiology 10/27/24 01:25 Nasal Secretion MRSA (PCR) - Final 10/27/24 00:52 Mucosa - Nasopharyngeal Respiratory Panel (PCR) - Final 10/27/24 02:25 Urine, Random Legionella Antigen - Final 10/27/24 02:25 Urine, Random Streptococcus pneumoniae Antigen (M - Final Imaging Radiology Impression Chest CT 10/26/24 18:37 IMPRESSION: 1. Healing right anterolateral 6th to 9th rib fractures. No pneumothorax. 2. Right middle lobe nodular opacity, possibly infectious in etiology versus neoplasm. 3. Mediastinal lymphadenopathy. 4. Cardiomegaly with mild vascular congestion and interstitial edema. 5. Dependent lung opacities bilaterally, likely atelectasis with infection not excluded. 6. Cholelithiasis with concern for acute cholecystitis. Clinical correlation is recommended. 7. Coronary artery calcification (CAC) is present. 8. Left thyroid nodule up to 1.7 cm. Thyroid ultrasound follow up is recommended. 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 Reading Location: [facility] Gallbladder Ultrasound 10/26/24 18:37 IMPRESSION: 1. Distended gallbladder with gallstones, sludge, wall thickening and pericholecystic edema. Correlate clinically for signs of acute cholecystitis. 2. Mildly nodular liver contour with coarsened echotexture. This could represent early signs of hepatic cirrhosis. 3. Minimal ascites. Reading Location: [facility] Assessment and Plan . Assessment and plan: Physical Exam: Gen - NAD, elderly, ill-appearing HEENT - MM dry. Sclera anicteric Resp - Diminshed BS, few crackles. Mild tachypnea CV - Tachycardic, irregular. No m/g/r Abd - Soft, +TTP Ext - No c/c. +LE edema. Scarring on legs from prior reed Skin - Bruising?on face Neuro - Drowsy but arousable. Mild confusion I have reviewed the pertinent vital sign, laboratory, and imaging data. ASSESSMENT: # Sepsis # Acute cholecystitis # Acute hypoxic respiratory failure # Afib w/ RVR - on eliquis at home # Possible PNA - ?nodular opacity in RML as well # Lactic acidosis # CKD # COPD - on trelegy at home # h/o severe COVID-19 03/2024 - required intubation # h/o histoplasmosis # h/o CVA 2023 # CKD # DM # BPH s/p TURP # Fall PLAN: -On 5L NC, wean to keep sats > 90% -s/p 2L IVF boluses. Hold further IVF for now given worsening O2 requirements and pulm edema on CT -Surgeon consulted, awaiting evaluation this AM. May need C-tube if not a good surgical candidate -Empiric vanc/zosyn/azithro. f/u Cx -Follow lactate, downtrending -PO metop as tolerated, PRN IV metop for worsening RVR. May need drip if not improving -Replete mag -Budesonide, atrovent nebs FEN/GI: NPO Proph DVT/GI: Holding eliquis pending surgery eval updated at bedside Critical Care Time: 60 mins The entirety of this encounter was done via telemedicine using both audio and video. Consent was obtained.
[2024-10-27] MEDS: Ipratropium 0.5 MG/2.5 ML SOLUTION INHALATION ×4 (06:57→18:59)
[2024-10-27 07:04] LABS: AST(SGOT) 27 U/L (<=37); Alanine Aminotransfer ALT/SGPT 14 U/L (<=46); Albumin, Serum 3.3 g/dL (3.4-4.8); Alkaline Phosphatase 77 U/L (40-129); Anion Gap 12 (5-15); BUN 22 mg/dL (4-19); BUN/Creat Ratio 16.8 RATIO (10-20); Calcium,Total 8.7 mg/dL (7.6-11.0); Carbon Dioxide 18.4 mmol/L (21.0-32.0); Chloride 110 mmol/L (98-108); Estimated Creatinine Clearance 42.46 ml/min (50-250); Globulin 2.7 g/dL (2.2-4.2); Glucose 96 mg/dL (70-99); Potassium 4.2 mmol/L (3.3-5.1)
[2024-10-27 07:25] LABS: Differential Comment SCANNED
--- NOTE | 2024-10-27 07:33 | PN.HOSP_ITS ---
Reason for Visit Chief Complaint: Abdominal pain, N/V. Objective Data Objective Data Vital Signs: Vital Signs Temp Pulse Resp BP Pulse Ox O2 Del Method O2 Flow Rate 99.3 F H 125 H 23 H 111/73 96 Nasal Cannula 5 10/27/24 00:39 10/27/24 06:00 10/27/24 06:00 10/27/24 06:00 10/27/24 06:00 10/27/24 06:00 10/27/24 06:00 Oxygen Flow Rate (L/min) 5 Oxygen Delivery Method Nasal Cannula Weight: 196 lb 13.965 oz Body Mass Index (BMI) 26.6 Intake & Output: Intake and Output for Last 24 Hours 10/25/24 10/26/24 10/27/24 23:59 23:59 23:59 Intake Total 50 / 50 2640 / 2640 Output Total 100 / 100 Balance 50 / 50 2540 / 2540 Lab / Micro Data 10/27/24 06:23 10/27/24 06:23 Labs: Laboratory Results - last 24 hr 10/26/24 18:04: WBC 15.8 H, RBC 5.16, Hgb 15.2, Hct 45.8, MCV 88.8, MCH 29.5, MCHC 33.2, RDW Std Deviation 49.2 H, RDW Coeff of Pollo 15.2 H, Plt Count 285, MPV 10.5, Immature Gran % (Auto) 1.400 H, Neut % (Auto) 81.0 H, Lymph % (Auto) 10.5 L, Charlton % (Auto) 6.0, Eos % (Auto) 0.4, Baso % (Auto) 0.7, Absolute Neuts (auto) 12.8 H, Absolute Lymphs (auto) 1.66, Nucleated RBC % 0, Sodium 140, Potassium 4.1, Chloride 102, Carbon Dioxide 23.2, Anion Gap 15, BUN 20 H, Creatinine 1.27 H, Estim Creat Clear Calc 44.13 L, Est GFR (MDRD) Non-Af 54 L, BUN/Creatinine Ratio 15.6, Glucose 144 H, Calcium 10.7, Phosphorus 3.2, Magnesium 1.4 L, Total Bilirubin 1.11, AST 34, ALT 18, Alkaline Phosphatase 120, Total Protein 8.1, Albumin 4.5, Globulin 3.6, Albumin/Globulin Ratio 1.3, Lipase 15 10/26/24 21:44: Lactic Acid 3.2 H* 10/27/24 01:09: POC Glucose 95 10/27/24 02:20: Lactic Acid 2.4 H* 10/27/24 06:23: WBC 24.0 H, RBC 4.64, Hgb 13.7, Hct 41.7, MCV 89.9, MCH 29.5, MCHC 32.9, RDW Std Deviation 49.7 H, RDW Coeff of Pollo 15.4 H, Plt Count 218, MPV 9.8, Immature Gran % (Auto) 0.900, Neut % (Auto) 91.2 H, Lymph % (Auto) 3.1 L, Charlton % (Auto) 4.2, Eos % (Auto) 0.0, Baso % (Auto) 0.6, Absolute Neuts (auto) 21.9 H, Absolute Lymphs (auto) 0.75 L, Nucleated RBC % 0, Differential Comment SCANNED, Sodium 140, Potassium 4.2, Chloride 110 H, Carbon Dioxide 18.4 L, Anion Gap 12, BUN 22 H, Creatinine 1.32 H, Estim Creat Clear Calc 42.46 L, Est GFR (MDRD) Non-Af 52 L, BUN/Creatinine Ratio 16.8, Glucose 96, Calcium 8.7, Total Bilirubin 1.36 H, AST 27, ALT 14, Alkaline Phosphatase 77, Total Protein 6.0, A lbumin 3.3 L, Globulin 2.7, Albumin/Globulin Ratio 1.2 10/27/24 06:25: POC Glucose 94 Micro: Microbiology 10/27/24 01:25 Nasal Secretion MRSA (PCR) - Final 10/27/24 00:52 Mucosa - Nasopharyngeal Respiratory Panel (PCR) - Final 10/27/24 02:25 Urine, Random Legionella Antigen - Final 10/27/24 02:25 Urine, Random Streptococcus pneumoniae Antigen (M - Final Radiography Diagnostic Testing: Radiology Impression Chest CT 10/26/24 18:37 IMPRESSION: 1. Healing right anterolateral 6th to 9th rib fractures. No pneumothorax. 2. Right middle lobe nodular opacity, possibly infectious in etiology versus neoplasm. 3. Mediastinal lymphadenopathy. 4. Cardiomegaly with mild vascular congestion and interstitial edema. 5. Dependent lung opacities bilaterally, likely atelectasis with infection not excluded. 6. Cholelithiasis with concern for acute cholecystitis. Clinical correlation is recommended. 7. Coronary artery calcification (CAC) is present. 8. Left thyroid nodule up to 1.7 cm. Thyroid ultrasound follow up is recommended. 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 Reading Location: [facility] Gallbladder Ultrasound 10/26/24 18:37 IMPRESSION: 1. Distended gallbladder with gallstones, sludge, wall thickening and pericholecystic edema. Correlate clinically for signs of acute cholecystitis. 2. Mildly nodular liver contour with coarsened echotexture. This could represent early signs of hepatic cirrhosis. 3. Minimal ascites. Reading Location: [facility] Physical Exam Narrative Seen and examined Patient admitted with right upper quadrant pain and chills and nausea. Denies any vomiting. Has chronic dyspnea on exertion with climbing stairs. As per his at home his blood pressure goes high and low and heart rate also not controlled. She kept a log of BP and pulse ox but there was no heart rate. On construction specialist patient afebrile RVR, heart rate variable from 125 to 140s Patient denies prior history of gallbladder or liver disease. Had a fall about a month ago and had a right-sided rib fracture and chest wall bruised as per the . Patient also has some dysphagia at throat/upper chest and his daughter is a speech pathologist who helps him and had esophageal dilatation. He has multiple other issues which takes precedence that dysphagia Physical exam General: Alert, Oriented x3, Cooperative HEENT: Atraumatic, PERRLA, EOMI, Normocephalic. Oral: No Gingival or Mucosal Lesions/ Ulcerations Neck: Supple, No JVD, Negative Carotid Bruits Chest wall/Lungs: Air entry diminished in bilateral lung bases. Right lung base crepitation Cardiovascular: Regular rate and rhythm, Normal S1,S2, No M/G/R Abdomen: Bowel Sounds Present, Soft, Non Tender, Non-Distended : No dysuria. No renal angle tenderness. No suprapubic tenderness. Extremities: No edema, Capillary Refill Less than 3 Seconds Skin: No rashes, No breakdown Musculoskeletal: No Tenderness to Palpation of Joints or Extremities. Chronic bony scar on bilateral lower legs. Neurological: Cranial nerves II-XII grossly intact, DTR 2+/4. No acute focal neurological deficit. Psych/Mental Status: Flat affect Assessment & Plan Assessment/Plan (1) Sepsis: (2) Acute cholecystitis: PLAN: Plan The patient is an 89 y/o M #1. Sepsis, probably acute cholecystitis with cholelithiasis/bilateral pneumonia: Patient had tachycardia, tachypnea, hypoxic lactic acidosis and leukocytosis. Blood pressure still maintained. Patient on sepsis protocol, broad-spectrum IV antibiotic as mentioned in H&P. Sepsis note reviewed in H&P. Surgeon is being consulted. Director Of Healthcare Systems consulted. Urinary antigens, respiratory panel and MRSA nasal screen are negative. Liver chemistry shows normal transaminases alkaline phosphatase but total bilirubin 1.36 mildly elevated #2. 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 Patient also had fall about a month ago with poor respiratory excursion. Chest CT initially reviewed and shows RML nodular opacity measuring 1.9 x 2.5 cm, interlobular septal and peribronchial interstitial thickening bilaterally and dependent opacity in bilateral lung bases. MRSA nasal screen, respiratory panel, urinary antigen and COVID PCR are negative. Blood culture pending. #3. Recent mechanical fall on anticoagulant therapy: Patient per report from fell to the right side and not surprisingly on CT imaging demonstrated a nonacute right anterior lateral 6th through 9th rib fractures as well as old lateral left 10th rib fracture, holding anticoagulant therapy as noted, PT/OT/case management consulted for discharge planning. #4. PAF with RVR: Likely secondary to his acute illness #1, improved rate in the ED with ED IV labetalol and lopressor, will continue metoprolol as able, holding Eliquis given surgical intervention needs. Most recently noted echocardiogram 10/01/2023 with EF 70%, mildly enlarged LA, trivial MVI with repeat echo requested. #5. Chronic Kidney Disease Stage IIIa: Admission BUN/Cr 20/1.27, GFR 54, baseline renal function primarily more recently noted 1.2-1.6, most recently 10/01/2023 which is unfortunately remote noted to be 1.47, repeat CMP in a.m. to further elucidate what patient's level is currently. #6. Incidentally noted left thyroid nodule: CT of the chest with incidentally noted left thyroid nodule up to 1.7 cm, TSH and free T4 #7. Incidentally noted renal artery aneurysm: CT of the chest with incidentally noted right renal artery aneurysm measuring up to 1.1 cm, outpatient follow-up. #8. Diabetes mellitus type II: Hold oral home regimen, n.p.o. status given presentation as noted, maintain on every 6 hours accu checks w/ ISS. NPO. #9. Hypertension: Given current presentation with PAF with RVR and usage of IV beta-mattie therapies in the ED BP now low, will temporarily hold diuretic therapy especially given presentation as noted #1 and focus on continuing beta- mattie therapy only as able, will add back other regimen as able. #10. Hyperlipidemia: Patient is n.p.o. therefore oral medications are held #11. Hx CVA w/ associated memory impairment: Hold oral metoprolol, IV metoprolol as needed #12. Former tobacco use: Encouraged continued tobacco cessation. #13. BPH: From records noted status post TURP status, not on any chronic regimen, monitor for retention. #14. GERD: Will maintain on IV PPI. #15. DVT prophylaxis: SCDs, holding Eliquis given need for intervention. #16. CODE status: Patient HCPOA is his who is present and living will is currently in place. Discussed CODE status at length including difference between FULL code, DNR-CCA and DNR-CC status. Charges/Coding Visit Charges Inpatient E&M: 96752 Subs Hosp L3
[2024-10-27] MEDS: Magnesium Sulfate 2 GM in Dextrose 5%-Water (100mL Bag) 100 ML IV (08:30)
[2024-10-27] MEDS: Pantoprazole Sodium 40 MG in 0.9% Normal Saline (100mL MB+) 100 ML 300 MG IV (09:46)
[2024-10-27] MEDS: Azithromycin 500 MG in 0.9% Normal Saline (250mL Bag) 250 ML 255 MG IV (10:14)
[2024-10-27] MEDS: Budesonide Respules 0.5 MG/2 ML AMPUL.NEB. INHALATION ×2 (11:40→18:59)
[2024-10-27] MEDS: Vancomycin HCl 750 MG in 0.9% Normal Saline (250mL Bag) 250 ML 250 MG IV (12:38)
--- NOTE | 2024-10-27 14:47 | PN.CC_ITS ---
Objective Data Objective Data Vital Signs: Vital Signs Last response 3 Temperature 36.4 C L 10/27/24 08:00 Temperature Source Temporal 10/27/24 08:00 Pulse Rate 113 H 10/27/24 13:00 Respiratory Rate 25 H 10/27/24 13:00 Respiratory Effort Normal, Non-Labored 10/27/24 04:00 Respiratory Depth Normal 10/27/24 04:00 Respiratory Pattern Normal 10/27/24 11:41 Blood Pressure 103/75 10/27/24 13:00 Blood Pressure Mean 84 10/27/24 13:00 Blood Pressure Source Monitor 10/27/24 13:00 Blood Pressure Position Semi-Fowlers 10/27/24 03:00 Blood Pressure Location Right Arm 10/27/24 03:00 Pulse Ox 94 10/27/24 13:42 Oxygen Delivery Method Nasal Cannula 10/27/24 13:00 Oxygen Flow Rate (L/min) 2 10/27/24 13:43 I&O: I&O Last 24 Hours 3 10/26/24 10/27/24 10/27/24 23:59 11:59 23:59 Intake Total 50 / 50 3822.75 / 4087.75 265 / 4087.75 Output Total 300 / 300 Balance 50 / 50 3522.75 / 3787.75 265 / 3787.75 I&O: Total Stay 3 10/26/24 16:39 thru 10/27/24 14:00 Intake Total 4137.75 Output Total 300 Balance 3837.75 Current Meds Ordered / Administered: Current meds ordered / Administered 3 Generic Name Dose Route Start Last Admin Trade Name Freq PRN Reason Stop Dose Admin Acetaminophen 650 mg 10/27/24 00:32 Acetaminophen 650 Mg Suppository RC Q4H PRN PRN Fever, pain 1-10 Acetaminophen 650 mg 10/27/24 00:32 Acetaminophen 325 Mg Tablet PO Q4H PRN PRN Fever, pain 1-10/10 Albuterol Sulfate 2.5 mg 10/27/24 00:32 Albuterol 2.5 Mg/3 Ml Vial.Neb. INHALATION Q2H PRN PRN Dyspnea, wheezing Atorvastatin Calcium 40 mg 10/27/24 22:00 Atorvastatin Calcium 40 Mg Tablet PO QHS SOLEDAD Budesonide 0.5 mg 10/27/24 08:00 10/27/24 11:40 Budesonide Respules 0.5 Mg/2 Ml Ampul.Neb. INHALATION 0.5 mg BID.RT SOLEDAD Administration Calamine/Phenol 1 applic 10/27/24 10:00 10/27/24 12:41 Menthol/Lanolin/Calamine/Znox 113 Gm Tube TOPICAL Not Given 4X/DAY SOLEDAD Protocol Glucagon 1 mg 10/27/24 00:32 Glucagon 1 Mg/Ml Syringe IM X1 PRN HYPOGLYCEMIA Protocol Guaifenesin 10 ml 10/27/24 00:32 Guaifenesin 10 Ml Udc (200mg/10ml) PO Q4H PRN PRN COUGH Hydralazine HCl 10 mg 10/27/24 00:32 Hydralazine 20 Mg/Ml Vial IV Q4H PRN PRN SBP > 160 Protocol Vancomycin IV-PHARMACY TO DOSE 500 mls @ 250 mls/hr 10/27/24 00:32 1 each/ Sodium Chloride IV X1 PRN Rx to Dose Protocol Pantoprazole Sodium 40 mg/ 100 mls @ 330 mls/hr 10/27/24 00:32 10/27/24 10:17 Sodium Chloride IV Infused Q12 SOLEDAD Infusion Piperacillin Sod/Tazobactam 50 mls @ 12.5 mls/hr 10/27/24 06:00 10/27/24 13:51 Sod 3.375 gm/ Sodium Chloride IV 12.5 mls/hr Q8 SOLEDAD Administration Azithromycin 500 mg/ Sodium 255 mls @ 255 mls/hr 10/27/24 10:00 10/27/24 11:17 Chloride IV 11/01/24 10:01 Infused Q24 SOLEDAD Infusion Dextrose 250 mls @ 0 mls/hr 10/27/24 00:32 Dextrose 10%-Water IV .Q0M PRN HYPOGLYCEMIA Protocol As Directed Sodium Chloride 250 mls @ 15 mls/hr 10/27/24 01:21 IV .[id number] PRN Saline Flush Sodium Chloride 250 mls @ 15 mls/hr 10/27/24 01:21 IV .[id number] PRN Additional IVPB Infusion Vancomycin HCl 750 mg/ Sodium 265 mls @ 250 mls/hr 10/27/24 13:30 10/27/24 14:00 Chloride IV Infused Q12H SOLEDAD Infusion Albumin Human 25 gm in 100 mls @ 60 mls/hr 10/27/24 14:45 IV 10/27/24 18:04 .Q1H40M ON LICENSE OF [facility] Diltiazem HCl 125 mg/ Dextrose 125 mls @ 5 mls/hr 10/27/24 14:45 IV .Q25H SOLEDAD Protocol 5 MG/HR Dextrose/Lactated Ringer's 1,000 mls @ 75 mls/hr 10/27/24 14:45 IV .[id number] ON LICENSE OF [facility] Insulin Human Lispro 0 unit 10/27/24 00:32 10/27/24 11:49 Insulin Lispro 100 Unit/Ml Insuln.Pen SC Not Given Q6 ON LICENSE OF [facility] Protocol Ipratropium Antlers 0.5 mg 10/27/24 00:32 10/27/24 11:40 Ipratropium 0.5 Mg/2.5 Ml Solution INHALATION 0.5 mg Q4HWA.RT SOLEDAD Administration Melatonin 3 mg 10/27/24 00:32 Melatonin 3 Mg Tablet PO QHS PRN PRN INSOMNIA Metoprolol Tartrate 50 mg 10/27/24 10:00 10/27/24 08:31 Metoprolol Tartrate 50 Mg Tablet PO 50 mg BID ON LICENSE OF [facility] Administration Protocol Metoprolol Tartrate 5 mg 10/27/24 07:41 Metoprolol Tartrate 5 Mg/5 Ml Vial IV Q6H PRN PRN TO CONTROL HEART RATE Protocol Morphine Sulfate 2 mg 10/27/24 00:32 10/27/24 01:01 Morphine 2 Mg/Ml Syringe IV 2 mg Q3H PRN PRN Administration Pain Score 6-10 Ondansetron HCl 4 mg 10/27/24 00:32 10/27/24 11:27 Ondansetron 4 Mg/2 Ml Vial IV 4 mg Q8H PRN PRN Administration NAUSEA/VOMITING Oxycodone HCl 2.5 mg 10/27/24 00:32 Oxycodone 5 Mg Tablet PO Q4H PRN PRN Pain Score 4-10 Senna/Docusate Sodium 2 tablet 10/27/24 00:32 Senna/Docusate Sodium 1 Tablet PO BID PRN PRN Constipation Sodium Chloride 10 - 40 ml 10/27/24 01:21 0.9% Saline Lock 10 Ml Syringe IV UD PRN SALINE FLUSH Vancomycin Protocol 1 lab 10/28/24 12:00 Vancomycin Trough/Random Due MC 10/28/24 14:00 DAILY ON LICENSE OF [facility] Lab / Micro Data 10/27/24 06:23 10/27/24 06:23 Labs: Laboratory Results - last 24 hr 10/26/24 18:04: WBC 15.8 H, RBC 5.16, Hgb 15.2, Hct 45.8, MCV 88.8, MCH 29.5, MCHC 33.2, RDW Std Deviation 49.2 H, RDW Coeff of Pollo 15.2 H, Plt Count 285, MPV 10.5, Immature Gran % (Auto) 1.400 H, Neut % (Auto) 81.0 H, Lymph % (Auto) 10.5 L, [place] % (Auto) 6.0, Eos % (Auto) 0.4, Baso % (Auto) 0.7, Absolute Neuts (auto) 12.8 H, Absolute Lymphs (auto) 1.66, Nucleated RBC % 0, Sodium 140, Potassium 4.1, Chloride 102, Carbon Dioxide 23.2, Anion Gap 15, BUN 20 H, Creatinine 1.27 H, Estim Creat Clear Calc 44.13 L, Est GFR (MDRD) Non-Af 54 L, BUN/Creatinine Ratio 15.6, Glucose 144 H, Calcium 10.7, Phosphorus 3.2, Magnesium 1.4 L, Total Bilirubin 1.11, AST 34, ALT 18, Alkaline Phosphatase 120, Total Protein 8.1, Albumin 4.5, Globulin 3.6, Albumin/Globulin Ratio 1.3, Lipase 15 10/26/24 21:44: Lactic Acid 3.2 H* 10/27/24 01:09: POC Glucose 95 10/27/24 02:20: Lactic Acid 2.4 H* 10/27/24 06:23: WBC 24.0 H, RBC 4.64, Hgb 13.7, Hct 41.7, MCV 89.9, MCH 29.5, MCHC 32.9, RDW Std Deviation 49.7 H, RDW Coeff of Pollo 15.4 H, Plt Count 218, MPV 9.8, Immature Gran % (Auto) 0.900, Neut % (Auto) 91.2 H, Lymph % (Auto) 3.1 L, [place] % (Auto) 4.2, Eos % (Auto) 0.0, Baso % (Auto) 0.6, Absolute Neuts (auto) 21.9 H, Absolute Lymphs (auto) 0.75 L, Nucleated RBC % 0, Differential Comment SCANNED, Sodium 140, Potassium 4.2, Chloride 110 H, Carbon Dioxide 18.4 L, Anion Gap 12, BUN 22 H, Creatinine 1.32 H, Estim Creat Clear Calc 42.46 L, Est GFR (MDRD) Non-Af 52 L, BUN/Creatinine Ratio 16.8, Glucose 96, Calcium 8.7, Total Bilirubin 1.36 H, AST 27, ALT 14, Alkaline Phosphatase 77, Total Protein 6.0, A lbumin 3.3 L, Globulin 2.7, Albumin/Globulin Ratio 1.2 10/27/24 06:25: POC Glucose 94 10/27/24 11:43: POC Glucose 111 H Micro: Microbiology 10/27/24 09:24 Mucosa - Nasopharyngeal Coronavirus COVID-19 PCR - Final 10/27/24 01:25 Nasal Secretion MRSA (PCR) - Final 10/27/24 00:52 Mucosa - Nasopharyngeal Respiratory Panel (PCR) - Final 10/27/24 02:25 Urine, Random Legionella Antigen - Final 10/27/24 02:25 Urine, Random Streptococcus pneumoniae Antigen (M - Final Imaging Radiology Impression Chest CT 10/26/24 18:37 IMPRESSION: 1. Healing right anterolateral 6th to 9th rib fractures. No pneumothorax. 2. Right middle lobe nodular opacity, possibly infectious in etiology versus neoplasm. 3. Mediastinal lymphadenopathy. 4. Cardiomegaly with mild vascular congestion and interstitial edema. 5. Dependent lung opacities bilaterally, likely atelectasis with infection not excluded. 6. Cholelithiasis with concern for acute cholecystitis. Clinical correlation is recommended. 7. Coronary artery calcification (CAC) is present. 8. Left thyroid nodule up to 1.7 cm. Thyroid ultrasound follow up is recommended. 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 Reading Location: [facility] Gallbladder Ultrasound 10/26/24 18:37 IMPRESSION: 1. Distended gallbladder with gallstones, sludge, wall thickening and pericholecystic edema. Correlate clinically for signs of acute cholecystitis. 2. Mildly nodular liver contour with coarsened echotexture. This could represent early signs of hepatic cirrhosis. 3. Minimal ascites. Reading Location: [id number] Echocardiogram 10/27/24 00:32 Interpretation Summary The estimated ejection fraction is 70 %. The left atrium is mildly enlarged. The right atrium is mildly enlarged. Trivial mitral valve insufficiency. Ordering Physician: Fernanda Triplett Referring Physician: Dipak Aguilar Performed By: Citlalli Arzate, ANUPAMA, RVT Assessment and Plan . Assessment and plan: Patient seen and examined Chart and data reviewed He appears ill HR 110-130 BPM, irregular - BP adequate - UOP poor CX pending Imaging noted Surgery evaluation ongoing Continue volume expansion HR control - try cardizem IV infusion Could likely narrow ABX - continue Zosyn A/C held d/t possible invasive intervention required for cholecystitis The entirety of this encounter was done via Telemedicine
--- NOTE | 2024-10-27 14:54 | EX.PCM.CON.S ---
Assessment & Plan Assessment/Plan (1) Sepsis: (2) Lactic acidosis: (3) Essential hypertension: (4) Acute cholecystitis: (5) Dyspnea on exertion: (6) Elevated blood pressure reading with diagnosis of hypertension: (7) Anticoagulant long-term use: PLAN: Plan The patient is an 89-year-old male with multiple significant medical problems as described above. Patient presents to the emergency department with abdominal pain and imaging findings consistent with acute cholecystitis/cholelithiasis. Clinically patient with signs and symptoms of sepsis. Patient also with atrial fibrillation and RVR. There is question of bilateral pneumonias. He is on blood thinners which are currently being held. Had a lengthy discussion with the patient as well as his this afternoon. I did explain that the definitive treatment of his acute cholecystitis ideally would be cholecystectomy, however I am concerned by all of his current medical comorbidities/issues. Most notably, the possibility of developing pneumonia's, fairly recent severe COVID infection resulting in prolonged intubation, and fall 3 to 4 weeks ago resulting in numerous rib fractures. For these reasons, I suspect that a percutaneous cholecystostomy tube may be the most prudent way to deal with his current sepsis. I would like to see how he clinically progresses in the next 24 hours to make a final determination but I suspect cholecystostomy tube will still be the best course of action rather than subject him to the risks of cholecystectomy. I explained that cholecystectomy could always be performed at a later date once stronger and more healthy. Patient and his seem to be in agreement with this plan. Will reevaluate and make a final determination tomorrow. HPI Consult Data Date of Consult: 10/27/24 HPI Narrative Reason for Consultation: Acute cholecystitis/cholelithiasis HPI Narrative: TAZ FOSTER, is a 89 M who presented yesterday afternoon to [facility] emergency department with abdominal pain that began abruptly just afternoon on the day of admission. He states that he was in his usual state of health until after lunch when he began having central abdominal pain along with nausea and 1 episode of emesis. He initially thought the pain may be related to bad clam chowder that he had had for lunch. He presented to the emergency department for further evaluation. Patient underwent a battery of laboratory testing that showed a white count of about 16,000. His BUN and creatinine were slightly elevated. His liver function tests were fairly unremarkable. His lactic acid was elevated at 3.2. Patient underwent CT scan of the chest abdomen pelvis which revealed multiple healing right sided rib fractures with no pneumothorax. There was also mediastinal lymphadenopathy and possible right middle lobe opacity. There was also cardiomegaly and vascular congestion and interstitial edema. There was also gallstones and concern for acute cholecystitis as there was some perihepatic fluid and pericholecystic edema. Patient also underwent an ultrasound that showed a distended gallbladder with gallstones, sludge, wall thickening and Napoleon cholecystic edema. There was also nodular liver contour concerning for possible early cirrhosis. Is also important to note the patient has multiple medical problems including GERD, CVA, chronic kidney disease, diabetes, hypertension, hyperlipidemia, histoplasmosis, BPH. More recently patient has had a fall about 3 to 4 weeks ago resulting in multiple right-sided rib fractures. He is also on Eliquis for atrial fibrillation. While in the emergency department patient was noted to have RVR. In further discussions with the patient and his , it was noted that he had an episode back in March or April in which he had pretty severe COVID as well as influenza and he was hospitalized in the ICU in [place]. He was intubated I believe for about 5 days. He spent a month in the hospital and then went to rehab before returning to [place] in May. The patient was admitted to the ICU due to sepsis. Today, the patient seems to have a worsening leukocytosis now with a white count of 24,000. His bilirubin has begun to rise. Patient is now requiring oxygen. Patient states his abdominal pain is minimal however his examination proves otherwise. His Eliquis is currently being held for presumed intervention once held for 2 days/4 doses. 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 [facility] Medical History Type 2 diabetes mellitus Hyperlipidemia HTN (hypertension) Pulmonary hypertension Diverticulosis Insomnia Atrial fibrillation with RVR Histoplasmosis GERD (gastroesophageal reflux disease) History of skin cancer Solar keratosis Ulcer of right leg Burn scar Home Medications ?Medication ?Instructions ?Recorded ?Last Taken ?Type omeprazole 40 mg capsule,delayed 20 mg PO DAILY reflux 07/22/15 09/05/19 06:00 History release albuterol sulfate 90 mcg/actuation 1 puff PO Q6H shortness of breath 09/05/19 09/05/19 12:00 History breath activated powder inhaler multivitamin 1 tab PO QWEEK 09/25/19 Unknown History apixaban 5 mg tablet 5 mg PO BID #180 tabs 09/26/19 Unknown Rx cholecalciferol (vitamin D3) 50 50 mcg PO DAILY 09/26/19 Unknown History mcg (2,000 unit) tablet metoprolol tartrate 50 mg tablet 50 mg PO BID #180 tabs 09/26/19 Unknown Rx tadalafil 5 mg tablet 5 mg PO DAILY 09/26/19 Unknown History Lactobacillus acidophilus 10 10,000 mmu cells PO DAILY 09/30/23 09/30/23 History billion cell capsule (Probiotic) supplement apixaban 5 mg tablet (Eliquis) 5 mg PO BID blood thinner 09/30/23 09/30/23 History calcium 600 mg (as 1 tab PO DAILY supplement 09/30/23 09/30/23 History carbonate)-vitamin D3 10 mcg (400 unit) tablet fluticasone fur. 200 mcg-umeclid 1 ea inhalation DAILY breathing 09/30/23 09/30/23 History 62.5 mcg-vilant 25 mcg inhalat.powder (Trelegy Ellipta) metoprolol tartrate 50 mg tablet 50 mg PO BID heart 09/30/23 09/30/23 History multivitamin (Daily Multi-Vitamin 1 tab PO DAILY supplement 09/30/23 09/30/23 History tablet) omeprazole 20 mg capsule,delayed 20 mg PO DAILY acid reflux 09/30/23 09/30/23 History release furosemide 20 mg tablet 20 mg PO DAILY PRN swelling 10/26/24 Unknown History hydralazine 25 mg tablet mg PO 10/26/24 Unknown History ipratropium 0.5 mg-albuterol 3 mg 3 ml inhalation TID 10/26/24 Unknown History (2.5 mg base)/3 mL nebulization soln losartan 100 mg tablet 100 mg PO DAILY 10/26/24 Unknown History magnesium 200 mg tablet 200 mg PO DAILY 10/26/24 Unknown History metformin 500 mg tablet 500 mg PO BID 10/26/24 Unknown History rosuvastatin 20 mg tablet 20 mg PO DAILY 10/26/24 Unknown History Allergy/AdvReac Type Severity Reaction Status Date / Time No Known Allergies Allergy Verified 10/26/24 16:44 Family History Mother Breast cancer Father Colon cancer Melanoma Brother COPD (chronic obstructive pulmonary disease) Grandfather Multiple myeloma Surgical History History of left hip replacement History of arthroscopic knee surgery History of skin graft History of transurethral resection of prostate History of right hip replacement History of rotator cuff surgery History of tonsillectomy and adenoidectomy Social History household members: spouse Smoking Status: Former smoker how long ago did patient quit smokin years ago alcohol intake: current alcohol intake frequency: a few times a week Alcohol type: wine substance use type: does not use caffeine: No ROS Eyes Eyes: Reports systems reviewed and no addt'l complaints, except as documented ENT HEENT: Reports systems reviewed and no addt'l complaints, except as documented Cardiovascular Cardiovascular: Reports systems reviewed and no addt'l complaints, except as documented Respiratory/Chest Respiratory/Chest: Reports systems reviewed and no addt'l complaints, except as documented Gastrointestinal Gastrointestinal: Reports systems reviewed and no addt'l complaints, except as documented Genitourinary Genitourinary: Reports systems reviewed and no addt'l complaints, except as documented Musculoskeletal Musculoskeletal: Reports systems reviewed and no addt'l complaints, except as documented Integumentary Integumentary: Reports systems reviewed and no addt'l complaints, except as documented Physical Exam Const alert, oriented x3 and no apparent distress General Appearance: cooperative HEENT normocephalic Eyes PERRL and EOMs intact bilaterally Resp Resp Narrative: No labored breathing but is on oxygen by nasal cannula GI GI Narrative: Abdomen is distended and diffusely tender. Patient with moderate tenderness to palpation with some guarding diffusely Lab / Micro Data 10/27/24 06:23 10/27/24 06:23 Labs: Laboratory Results - last 24 hr 10/26/24 18:04: WBC 15.8 H, RBC 5.16, Hgb 15.2, Hct 45.8, MCV 88.8, MCH 29.5, MCHC 33.2, RDW Std Deviation 49.2 H, RDW Coeff of Pollo 15.2 H, Plt Count 285, MPV 10.5, Immature Gran % (Auto) 1.400 H, Neut % (Auto) 81.0 H, Lymph % (Auto) 10.5 L, [place] % (Auto) 6.0, Eos % (Auto) 0.4, Baso % (Auto) 0.7, Absolute Neuts (auto) 12.8 H, Absolute Lymphs (auto) 1.66, Nucleated RBC % 0, Sodium 140, Potassium 4.1, Chloride 102, Carbon Dioxide 23.2, Anion Gap 15, BUN 20 H, Creatinine 1.27 H, Estim Creat Clear Calc 44.13 L, Est GFR (MDRD) Non-Af 54 L, BUN/Creatinine Ratio 15.6, Glucose 144 H, Calcium 10.7, Phosphorus 3.2, Magnesium 1.4 L, Total Bilirubin 1.11, AST 34, ALT 18, Alkaline Phosphatase 120, Total Protein 8.1, Albumin 4.5, Globulin 3.6, Albumin/Globulin Ratio 1.3, Lipase 15 10/26/24 21:44: Lactic Acid 3.2 H* 10/27/24 01:09: POC Glucose 95 10/27/24 02:20: Lactic Acid 2.4 H* 10/27/24 06:23: WBC 24.0 H, RBC 4.64, Hgb 13.7, Hct 41.7, MCV 89.9, MCH 29.5, MCHC 32.9, RDW Std Deviation 49.7 H, RDW Coeff of Pollo 15.4 H, Plt Count 218, MPV 9.8, Immature Gran % (Auto) 0.900, Neut % (Auto) 91.2 H, Lymph % (Auto) 3.1 L, [place] % (Auto) 4.2, Eos % (Auto) 0.0, Baso % (Auto) 0.6, Absolute Neuts (auto) 21.9 H, Absolute Lymphs (auto) 0.75 L, Nucleated RBC % 0, Differential Comment SCANNED, Sodium 140, Potassium 4.2, Chloride 110 H, Carbon Dioxide 18.4 L, Anion Gap 12, BUN 22 H, Creatinine 1.32 H, Estim Creat Clear Calc 42.46 L, Est GFR (MDRD) Non-Af 52 L, BUN/Creatinine Ratio 16.8, Glucose 96, Calcium 8.7, Total Bilirubin 1.36 H, AST 27, ALT 14, Alkaline Phosphatase 77, Total Protein 6.0, Albumin 3.3 L, Globulin 2.7, Albumin/Globulin Ratio 1.2 10/27/24 06:25: POC Glucose 94 10/27/24 11:43: POC Glucose 111 H Micro: Microbiology 10/27/24 09:24 Mucosa - Nasopharyngeal Coronavirus COVID-19 PCR - Final 10/27/24 01:25 Nasal Secretion MRSA (PCR) - Final 10/27/24 00:52 Mucosa - Nasopharyngeal Respiratory Panel (PCR) - Final 10/27/24 02:25 Urine, Random Legionella Antigen - Final 10/27/24 02:25 Urine, Random Streptococcus pneumoniae Antigen (M - Final Imaging Radiology Impression Chest CT 10/26/24 18:37 IMPRESSION: 1. Healing right anterolateral 6th to 9th rib fractures. No pneumothorax. 2. Right middle lobe nodular opacity, possibly infectious in etiology versus neoplasm. 3. Mediastinal lymphadenopathy. 4. Cardiomegaly with mild vascular congestion and interstitial edema. 5. Dependent lung opacities bilaterally, likely atelectasis with infection not excluded. 6. Cholelithiasis with concern for acute cholecystitis. Clinical correlation is recommended. 7. Coronary artery calcification (CAC) is present. 8. Left thyroid nodule up to 1.7 cm. Thyroid ultrasound follow up is recommended. 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 Reading Location: [facility] Gallbladder Ultrasound 10/26/24 18:37 IMPRESSION: 1. Distended gallbladder with gallstones, sludge, wall thickening and pericholecystic edema. Correlate clinically for signs of acute cholecystitis. 2. Mildly nodular liver contour with coarsened echotexture. This could represent early signs of hepatic cirrhosis. 3. Minimal ascites. Reading Location: [facility] Echocardiogram 10/27/24 00:32 Interpretation Summary The estimated ejection fraction is 70 %. The left atrium is mildly enlarged. The right atrium is mildly enlarged. Trivial mitral valve insufficiency. Ordering Physician: Fernanda Triplett Referring Physician: Dipak Aguilar Performed By: Citlalli Arzate RDCS, RVT
[2024-10-27] MEDS: Albumin Human 25% (100 mL) 25 GM/100 ML BAG IV ×2 (15:18→16:58)
[2024-10-27] MEDS: Diltiazem 125 MG in Dextrose 5%-Water (100mL Bag) 100 ML IV (15:31)
--- NOTE | 2024-10-27 16:44 | CASEMGMT ---
LUPE SAVAGE Assessment Face to Face with patient for initial transition planning/care coordination assessment. LUPE SAVAGE introduced self and role at [facility], pt voices understanding. Pt is A&Ox4 and is resting comfortably in bed and is calm. Pt's at bedside. Care providers, pharmacy, and demographics verified. Admitting dx: Sepsis PCP: Dipak Aguilar Specialists: Dr Issa (Urologist [facility]), Dr Nicole (Cardio [facility]), [facility] - [facility] (Pt unable to recall name), Dexter (Eye), [facility] Preferred Pharmacy: [facility] Insurance: [employer] [facility] Prescription Benefit: Yes LNOK: Anika Johnson (W), Annika (Dtr) Living Arrangements: Pt lives with his in a 2 story home with 2 steps to enter ADLs/IADLs: Pt states that he is indep and denies concerns. PT is not recommending additional therapy. Pt denies the need for HH or OP Tx Transportation: Self, DME: FWW, Cane, Lift chair, RTS, Shower chair, Grab bars. Pt is currently requiring additional oxygen and may qualify for home oxygen use. A verbal list of local in-network DME companies were provided to the pt at this time. Pt prefers [facility] HHC/SNF: denies hx or needs Pt?s goal: Home Plan: Home with , follow for oxygen needs. At this time, the pt states that he feels safe returning home with his once he is medically ready and denies further questions or concerns. Mono Kirk RN, CM
[2024-10-28] VITALS (33 sets, daily range): BP systolic 106–157; BP diastolic 71–101; PULSE 54–118; RESP 17–33; TEMP 36.8–37.3; O2SAT 88–96; BMI 28.9
[2024-10-28] MEDS: Vancomycin HCl 750 MG in 0.9% Normal Saline (250mL Bag) 250 ML 250 MG IV ×2 (02:11→13:52)
[2024-10-28] MEDS: Piperacil/Tazobactam 3.375 GM in 0.9% Normal Saline (50mL MB+) 50 ML IV ×3 (05:45→21:02)
[2024-10-28 06:16] LABS: Hematocrit 37.0 % (40-54); Hemoglobin 12.4 g/dL (13.0-16.5); Immature Granulocytes Count 0.270 X10^3/uL (0.0-0.0); Mean Corp Hgb Conc 33.5 g/dL (32-36); Mean Corpuscular Volume 90.5 fL (80-94); Mean Platelet Vol. 10.3 fl (6.2-12.0); NRBC Flagged by Analyzer 0 % (0-5); POSITIVE MORPHOLOGY YES; Platelet Count 191 K/mm3 (150-450); RBC Distribution Width CV 15.7 % (11.6-14.6); RBC Distribution Width SD 52.0 fl (35.1-43.9); Red Blood Count 4.09 M/mm3 (4.6-6.2); White Blood Count 18.7 K/mm3 (4.4-11.0)
[2024-10-28 06:36] LABS: AST(SGOT) 20 U/L (<=37); Alanine Aminotransfer ALT/SGPT 8 U/L (<=46); Albumin, Serum 3.5 g/dL (3.4-4.8); Alkaline Phosphatase 64 U/L (40-129); Anion Gap 13 (5-15); BUN 29 mg/dL (4-19); BUN/Creat Ratio 17.6 RATIO (10-20); Calcium,Total 8.5 mg/dL (7.6-11.0); Carbon Dioxide 18.1 mmol/L (21.0-32.0); Chloride 108 mmol/L (98-108); Estimated Creatinine Clearance 34.38 ml/min (50-250); Globulin 2.3 g/dL (2.2-4.2); Glucose 205 mg/dL (70-99); Magnesium 1.6 mg/dL (1.5-2.2); Potassium 4.1 mmol/L (3.3-5.1)
[2024-10-28 06:50] LABS: Differential Indicated SCAN CRITERIA MET
[2024-10-28] MEDS: Budesonide Respules 0.5 MG/2 ML AMPUL.NEB. INHALATION ×2 (06:58→19:55)
[2024-10-28] MEDS: Ipratropium 0.5 MG/2.5 ML SOLUTION INHALATION ×4 (06:58→19:54)
--- NOTE | 2024-10-28 08:24 | PCM.PN.HOSP ---
Reason for Visit Chief Complaint: Abdominal pain, N/V. Objective Data Objective Data Vital Signs: Vital Signs Temp Pulse Resp BP Pulse Ox O2 Del Method O2 Flow Rate 98.4 F 89 21 H 137/77 H 96 Nasal Cannula 2 10/28/24 04:00 10/28/24 07:00 10/28/24 07:00 10/28/24 06:00 10/28/24 07:00 10/28/24 07:00 10/28/24 07:00 Oxygen Flow Rate (L/min) 2 Oxygen Delivery Method Nasal Cannula Weight: 196 lb 13.965 oz Body Mass Index (BMI) 26.6 Intake & Output: Intake and Output for Last 24 Hours 10/26/24 10/27/24 10/28/24 23:59 23:59 23:59 Intake Total 50 / 50 4557.75 / 4557.75 1315 / 1315 Output Total 400 / 400 Balance 50 / 50 4157.75 / 4157.75 1315 / 1315 Lab / Micro Data 10/28/24 05:39 10/28/24 05:39 Labs: Laboratory Results - last 24 hr 10/27/24 11:43: POC Glucose 111 H 10/27/24 17:59: POC Glucose 111 H 10/28/24 05:38: POC Glucose 188 H 10/28/24 05:39: WBC 18.7 H, RBC 4.09 L, Hgb 12.4 L, Hct 37.0 L, MCV 90.5, MCH 30.3, MCHC 33.5, RDW Std Deviation 52.0 H, RDW Coeff of Pollo 15.7 H, Plt Count 191, MPV 10.3, Immature Gran % (Auto) 1.400 H, Neut % (Auto) 90.7 H, Lymph % (Auto) 3.9 L, [place] % (Auto) 3.2, Eos % (Auto) 0.5, Baso % (Auto) 0.3, Absolute Neuts (auto) 16.9 H, Absolute Lymphs (auto) 0.73 L, Nucleated RBC % 0, Sodium 139, Potassium 4.1, Chloride 108, Carbon Dioxide 18.1 L, Anion Gap 13, BUN 29 H, Creatinine 1.63 H, Estim Creat Clear Calc 34.38 L, Est GFR (MDRD) Non-Af 40 L, BUN/Creatinine Ratio 17.6, Glucose 205 H, Calcium 8.5, Magnesium 1.6, Total Bilirubin 1.39 H, AST 20, ALT 8, Alkaline Phosphatase 64, Total Protein 5.8 L, Albumin 3.5, Globulin 2.3, Albumin/Globulin Ratio 1.5, TSH 1.440, Free T4 0.90 Micro: Microbiology 10/27/24 09:24 Mucosa - Nasopharyngeal Coronavirus COVID-19 PCR - Final 10/27/24 01:25 Nasal Secretion MRSA (PCR) - Final 10/27/24 00:52 Mucosa - Nasopharyngeal Respiratory Panel (PCR) - Final 10/27/24 02:25 Urine, Random Legionella Antigen - Final 10/27/24 02:25 Urine, Random Streptococcus pneumoniae Antigen (M - Final Radiography Diagnostic Testing: Radiology Impression Echocardiogram 10/27/24 00:32 Interpretation Summary The estimated ejection fraction is 70 %. The left atrium is mildly enlarged. The right atrium is mildly enlarged. Trivial mitral valve insufficiency. Ordering Physician: Fernanda Triplett Referring Physician: Dipak Aguilar Performed By: Citlalli Arzate, REBECACS, RVT Physical Exam Narrative Seen and examined Patient is short of breath like yesterday. Has coarse breathing due to upper respiratory mucus, not able to cough out, weak cough. Patient stated he also did not move bowel or flatus for 3 days. He also mildly confused. near the bedside. A-fib, heart rate controlled. Physical exam General: Awake, confused with time. HEENT: Atraumatic, PERRLA, EOMI, Normocephalic. Oral: No Gingival or Mucosal Lesions/ Ulcerations Neck: Supple, No JVD, Negative Carotid Bruits Chest wall/Lungs: Air entry diminished in bilateral lung bases. Bilateral coarse crepitation right more than left Cardiovascular: irregular rate and rhythm no M/G/R Abdomen: Bowel Sounds sluggish, Soft, tenderness present on right upper quadrant, abdomen distended : Deep luana-colored. No renal angle tenderness. No suprapubic tenderness. Extremities: No edema, Capillary Refill Less than 3 Seconds Skin: No rashes, No breakdown Musculoskeletal: No Tenderness to Palpation of Joints or Extremities. Chronic bony scar on bilateral lower legs. Neurological: Cranial nerves II-XII grossly intact, DTR 2+/4. No acute focal neurological deficit. Psych/Mental Status: Flat affect, retrograde amnesia Assessment & Plan Assessment/Plan (1) Sepsis: (2) Acute cholecystitis: PLAN: Plan The patient is an 89 y/o M #1. Sepsis, probably acute cholecystitis with cholelithiasis/bilateral pneumonia: Patient had tachycardia, tachypnea, hypoxic lactic acidosis and leukocytosis. Blood pressure still maintained. Patient on sepsis protocol, broad-spectrum IV antibiotic as mentioned in H&P. Sepsis note reviewed in H&P. Surgeon is being consulted. Supervisor Contact And Service Clerks consulted. Urinary antigens, respiratory panel and MRSA nasal screen are negative. Liver chemistry shows normal transaminases alkaline phosphatase but total bilirubin 1.36 mildly elevated 10/28:No fever. Leukocytosis. With multiple comorbidities, there is high risk for cholecystectomy for acute cholecystitis with cholelithiasis. Agreed with the surgeon, for recommendation of percutaneous cholecystostomy tube and maybe later cholecystectomy and patient is physically more stronger. Patient currently has questionable pneumonia with a right-sided rib fracture after fall about a month ago. Dyspnea at rest. #2. 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 Patient also had fall about a month ago with poor respiratory excursion. Chest CT initially reviewed and shows RML nodular opacity measuring 1.9 x 2.5 cm, interlobular septal and peribronchial interstitial thickening bilaterally and dependent opacity in bilateral lung bases. MRSA nasal screen, respiratory panel, urinary antigen and COVID PCR are negative. Blood culture pending. 10/28: URI mucous plugging. Mucomyst inhalation added. On bronchodilator and guaifenesin. #3. Recent mechanical fall on anticoagulant therapy: Patient per report from fell to the right side and not surprisingly on CT imaging demonstrated a nonacute right anterior lateral 6th through 9th rib fractures as well as old lateral left 10th rib fracture, holding anticoagulant therapy as noted, PT/OT/case management consulted for discharge planning. #4. PAF with RVR: Likely secondary to his acute illness #1, improved rate in the ED with ED IV labetalol and lopressor, will continue metoprolol as able, holding Eliquis given surgical intervention needs. Most recently noted echocardiogram 10/01/2023 with EF 70%, mildly enlarged LA, trivial MVI with repeat echo requested. 10/28: Heart rate is controlled #5. Chronic Kidney Disease Stage IIIa: Admission BUN/Cr 20/1.27, GFR 54, baseline renal function primarily more recently noted 1.2-1.6, most recently 10/01/2023 which is unfortunately remote noted to be 1.47, repeat CMP in a.m. to further elucidate what patient's level is currently. 10/28: BUN/creatinine 29/1.63. Creatinine went up from 1.27-1.63. Abdominal x-ray ordered to look for bowel distention probably third volume sequestration. Diabetes mellitus type II: Hold oral home regimen, n.p.o. status given presentation as noted, maintain on every 6 hours accu checks w/ ISS. NPO. 10/28: Glucose is 111. #9. Hypertension: BP 150/100 #10. Hyperlipidemia: Patient is n.p.o.. Will need necessary medications #11. Hx CVA w/ associated memory impairment: Hold oral metoprolol, IV metoprolol as needed #12. Former tobacco use: Encouraged continued tobacco cessation. #13. BPH: From records noted status post TURP status, not on any chronic regimen, monitor for retention. #14. GERD: Will maintain on IV PPI. #15. DVT prophylaxis: SCDs, holding Eliquis given need for intervention. #16. CODE status: Patient FRANKLIN is his who is present and living will is currently in place. Discussed CODE status at length including difference between FULL code, DNR-CCA and DNR-CC status. Charges/Coding Visit Charges Inpatient E&M: 46399 Subs Hosp L3
[2024-10-28 08:27] LABS: Differential Comment SCANNED
[2024-10-28] MEDS: 0.9% Saline Lock 10 ML Syringe IV ×3 (08:43→19:37)
[2024-10-28] MEDS: Diltiazem 125 MG in Dextrose 5%-Water (100mL Bag) 100 ML IV (08:43)
--- NOTE | 2024-10-28 09:30 | RAD_ITS ---
PROCEDURE: ABD INC DECUB AND/OR ERECT 10/28/2024 REASON FOR EXAM: CONSTIPATION/ABD DISTENSION TECHNIQUE: Procedure Code: RADABDMV Modality: DX Procedure: ABD INC DECUB AND/OR ERECT COMPARISON: None. FINDINGS: Suspect minimal left lung base airspace disease/pleural fluid. Negative for subdiaphragmatic air. Negative for free intra-abdominal air. Mild increasedstool throughout the colon. Negative for dilated loops of large or small bowel. Bilateral hip arthroplasties otherwise age-appropriate appearance of the hips and spine. Remainder of the exam negative. RAD/Abd Inc Decub and/or Erect IMPRESSION: Mild constipation. Probable left lung base infiltrate/pleural fluid. Reading Location: [id number]
--- NOTE | 2024-10-28 10:08 | PCM.PN.TICU ---
Objective Data Objective Data Vital Signs: Vital Signs Last response Temperature 37.3 C 10/28/24 08:00 Temperature Source Temporal 10/28/24 08:00 Pulse Rate 84 10/28/24 09:00 Pulse Strength Normal (2+) 10/28/24 08:56 Respiratory Rate 24 H 10/28/24 09:00 Respiratory Effort Labored 10/28/24 08:00 Respiratory Depth Shallow 10/28/24 08:00 Respiratory Pattern Tachypnea 10/28/24 08:00 Blood Pressure 150/101 H 10/28/24 09:00 Blood Pressure Mean 117 10/28/24 09:00 Blood Pressure Source Monitor 10/28/24 09:00 Blood Pressure Position Semi-Fowlers 10/28/24 09:00 Blood Pressure Location Right Arm 10/28/24 09:00 Pulse Ox 93 10/28/24 09:00 Oxygen Delivery Method Nasal Cannula 10/28/24 09:00 Oxygen Flow Rate (L/min) 2 10/28/24 09:00 I&O: I&O Last 24 Hours 10/27/24 10/27/24 10/28/24 11:59 23:59 11:59 Intake Total 3822.75 / 4557.75 735 / 4557.75 1401 / 1401 Output Total 300 / 400 100 / 400 400 / 400 Balance 3522.75 / 4157.75 635 / 4157.75 1001 / 1001 I&O: Total Stay 10/26/24 16:39 thru 10/28/24 08:43 Intake Total 6008.75 Output Total 800 Balance 5208.75 Current Meds Ordered / Administered: Current meds ordered / Administered Generic Name Dose Route Start Last Admin Trade Name Freq PRN Reason Stop Dose Admin Acetaminophen 650 mg 10/27/24 00:32 Acetaminophen 325 Mg Tablet PO Q4H PRN PRN Fever, pain 1-10/10 Acetylcysteine 800 mg 10/28/24 09:30 Acetylcysteine 800 Mg/4 Ml Vial.Neb. INHALATION Q4H.RT SOLEDAD Atorvastatin Calcium 40 mg 10/27/24 22:00 10/27/24 21:02 Atorvastatin Calcium 40 Mg Tablet PO 40 mg QHS SOLEDAD Administration Budesonide 0.5 mg 10/27/24 08:00 10/28/24 06:58 Budesonide Respules 0.5 Mg/2 Ml Ampul.Neb. INHALATION 0.5 mg BID.RT SOLEDAD Administration Calamine/Phenol 1 applic 10/27/24 10:00 10/27/24 22:26 Menthol/Lanolin/Calamine/Znox 113 Gm Tube TOPICAL Not Given 4X/DAY SOLEDAD Protocol Glucagon 1 mg 10/27/24 00:32 Glucagon 1 Mg/Ml Syringe IM X1 PRN HYPOGLYCEMIA Protocol Guaifenesin 10 ml 10/28/24 09:30 Guaifenesin 10 Ml Udc (200mg/10ml) PO Q4H SOLEDAD Hydralazine HCl 10 mg 10/27/24 00:32 Hydralazine 20 Mg/Ml Vial IV Q4H PRN PRN SBP > 160 Protocol Vancomycin IV-PHARMACY TO DOSE 500 mls @ 250 mls/hr 10/27/24 00:32 1 each/ Sodium Chloride IV X1 PRN Rx to Dose Protocol Pantoprazole Sodium 40 mg/ 100 mls @ 330 mls/hr 10/27/24 00:32 10/27/24 22:30 Sodium Chloride IV Infused Q12 SOLEDAD Infusion Piperacillin Sod/Tazobactam 50 mls @ 12.5 mls/hr 10/27/24 06:00 10/28/24 05:45 Sod 3.375 gm/ Sodium Chloride IV 12.5 mls/hr Q8 SOLEDAD Administration Azithromycin 500 mg/ Sodium 255 mls @ 255 mls/hr 10/27/24 10:00 10/27/24 11:17 Chloride IV 11/01/24 10:01 Infused Q24 SOLEDAD Infusion Dextrose 250 mls @ 0 mls/hr 10/27/24 00:32 Dextrose 10%-Water IV .Q0M PRN HYPOGLYCEMIA Protocol As Directed Sodium Chloride 250 mls @ 15 mls/hr 10/27/24 01:21 IV .[id number] PRN Saline Flush Sodium Chloride 250 mls @ 15 mls/hr 10/27/24 01:21 IV .[id number] PRN Additional IVPB Infusion Vancomycin HCl 750 mg/ Sodium 265 mls @ 250 mls/hr 10/27/24 13:30 10/28/24 03:20 Chloride IV Infused Q12H SOLEDAD Infusion Diltiazem HCl 125 mg/ Dextrose 125 mls @ 5 mls/hr 10/27/24 14:45 10/28/24 08:43 IV 5 mg/hr .Q25H SOLEDAD 5 mls/hr Administration Protocol 5 MG/HR Dextrose/Lactated Ringer's 1,000 mls @ 75 mls/hr 10/27/24 14:45 10/28/24 05:47 IV 75 mls/hr .[id number] SOLEDAD Administration Lactated Ringer's 1,000 mls @ 75 mls/hr 10/28/24 09:45 IV 10/29/24 12:24 .[id number] SOLEDAD Magnesium Sulfate 4 gm in 100 mls @ 25 mls/hr 10/28/24 09:34 IV 10/28/24 13:33 X1 ONE Insulin Human Lispro 0 unit 10/27/24 00:32 10/28/24 05:46 Insulin Lispro 100 Unit/Ml Insuln.Pen SC 1 u Q6 SOLEDAD Administration Protocol Ipratropium [place] 0.5 mg 10/27/24 00:32 10/28/24 06:58 Ipratropium 0.5 Mg/2.5 Ml Solution INHALATION 0.5 mg Q4HWA.RT SOLEDAD Administration Metoprolol Tartrate 50 mg 10/27/24 10:00 10/27/24 21:02 Metoprolol Tartrate 50 Mg Tablet PO 50 mg BID SOLEDAD Administration Protocol Metoprolol Tartrate 5 mg 10/27/24 07:41 Metoprolol Tartrate 5 Mg/5 Ml Vial IV Q6H PRN PRN TO CONTROL HEART RATE Protocol Morphine Sulfate 2 mg 10/27/24 00:32 10/27/24 01:01 Morphine 2 Mg/Ml Syringe IV 2 mg Q3H PRN PRN Administration Pain Score 6-10 Ondansetron HCl 4 mg 10/27/24 00:32 10/27/24 11:27 Ondansetron 4 Mg/2 Ml Vial IV 4 mg Q8H PRN PRN Administration NAUSEA/VOMITING Oxycodone HCl 2.5 mg 10/27/24 00:32 Oxycodone 5 Mg Tablet PO Q4H PRN PRN Pain Score 4-10 Senna/Docusate Sodium 2 tablet 10/28/24 09:30 Senna/Docusate Sodium 1 Tablet PO BID [facility] Sodium Chloride 10 - 40 ml 10/27/24 01:21 10/28/24 08:43 0.9% Saline Lock 10 Ml Syringe IV 10 ml UD PRN Administration SALINE FLUSH Vancomycin Protocol 1 lab 10/28/24 12:00 Vancomycin Trough/Random Due 10/28/24 14:00 DAILY [facility] Lab / Micro Data 10/28/24 05:39 10/28/24 05:39 Labs: Laboratory Results - last 24 hr 10/27/24 11:43: POC Glucose 111 H 10/27/24 17:59: POC Glucose 111 H 10/28/24 05:38: POC Glucose 188 H 10/28/24 05:39: WBC 18.7 H, RBC 4.09 L, Hgb 12.4 L, Hct 37.0 L, MCV 90.5, MCH 30.3, MCHC 33.5, RDW Std Deviation 52.0 H, RDW Coeff of Pollo 15.7 H, Plt Count 191, MPV 10.3, Immature Gran % (Auto) 1.400 H, Neut % (Auto) 90.7 H, Lymph % (Auto) 3.9 L, [place] % (Auto) 3.2, Eos % (Auto) 0.5, Baso % (Auto) 0.3, Absolute Neuts (auto) 16.9 H, Absolute Lymphs (auto) 0.73 L, Nucleated RBC % 0, Differential Comment SCANNED, Sodium 139, Potassium 4.1, Chloride 108, Carbon Dioxide 18.1 L, Anion Gap 13, BUN 29 H, Creatinine 1.63 H, Estim Creat Clear Calc 34.38 L, Est GFR (MDRD) Non-Af 40 L, BUN/Creatinine Ratio 17.6, Glucose 205 H, Calcium 8.5, Magnesium 1.6, Total Bilirubin 1.39 H, AST 20, ALT 8, Alkaline Phosphatase 64, Total Protein 5.8 L, Albumin 3.5, Globulin 2.3, Albumin/Globulin Ratio 1.5, TSH 1.440, Free T4 0.90 Micro: Microbiology 10/27/24 09:24 Mucosa - Nasopharyngeal Coronavirus COVID-19 PCR - Final Imaging Radiology Impression Echocardiogram 10/27/24 00:32 Interpretation Summary The estimated ejection fraction is 70 %. The left atrium is mildly enlarged. The right atrium is mildly enlarged. Trivial mitral valve insufficiency. Ordering Physician: Fernanda Triplett Referring Physician: Dipak Aguilar Performed By: Citlalli Arzate, RDCS, RVT Abdomen X-Ray 10/28/24 09:30 IMPRESSION: Mild constipation. Probable left lung base infiltrate/pleural fluid. Reading Location: [facility] Assessment and Plan . Assessment and plan: HPI 89yo M w/ h/o CVA, COPD, h/o severe COVID-19 03/2024, CKD, paroxysmal Afib on eliquis, h/o histoplasmosis, BPH s/p TURP who was admitted for sepsis and cholecystitis. at bedside assisted with history. Yesterday he developed acute onset R sided abd pain, nausea without vomiting, and chills. He also had a fall about 1 week prior with some bruising to his face. On arrival here he was noted to be in Afib w/ RVR, lactic acidosis, and imaging showed acute cholecystitis. He was started on empiric IV abx and admitted to ICU. Received IV metop and labetalol for RVR with only marginal improvement. Surgeon consulted and will see this AM. 10/28/24 He remains ill - appears more comfortable today HR improved w/ cardizem infusion, BP OK CX NGTD WBC 19, creatinine 1.6 Breathing 2 LPM O2 He is awake and alert - some confusion Await further surgical recommendation Physical Exam: Gen - NAD, elderly, ill-appearing HEENT - MM dry. Sclera anicteric Resp - Diminshed BS, few crackles. Mild tachypnea CV - irregular. No m/g/r Abd - Soft, +TTP Ext - No c/c. +LE edema. Scarring on legs from prior reed Skin - Bruising?on face Neuro - Mild confusion - grossly NF I have reviewed the pertinent vital sign, laboratory, and imaging data. ASSESSMENT: # Sepsis # Acute cholecystitis # Acute hypoxic respiratory failure - 2 LPM O2 currently # Afib w/ RVR - on eliquis at home - improved HR w/ diltiazem # Possible PNA - ?nodular opacity in RML as well # Lactic acidosis - improved # CKD # COPD - on trelegy at home # h/o severe COVID-19 03/2024 - required intubation # h/o histoplasmosis # h/o CVA 2023 # DM # BPH s/p TURP # Fall PLAN: -supplemental O2 as needed -s/p volume expansion -Surgeon consulted, May need C-tube when IR available -Empiric vanc/zosyn/azithro. f/u Cx -Follow lactate, downtrending -follow renal function -Budesonide, atrovent nebs FEN/GI: NPO Proph DVT/GI: Holding eliquis pending intervention for GB Critical Care Time: 50 minutes The entirety of this encounter was done via Telemedicine
[2024-10-28] MEDS: guaiFENesin 10 ML UDC (200MG/10ML) PO ×4 (10:20→20:41)
[2024-10-28] MEDS: Senna/Docusate Sodium 1 Tablet 2 TABLET PO ×2 (10:20→20:42)
[2024-10-28] MEDS: Pantoprazole Sodium 40 MG in 0.9% Normal Saline (100mL MB+) 100 ML 330 MG IV ×2 (10:20→20:42)
[2024-10-28] MEDS: Lactobacillis Acidophilus 1 CAP PO (10:21)
[2024-10-28] MEDS: 0.9% Normal Saline (250mL Bag) 250 ML 20 ML IV ×2 (10:35→15:15)
[2024-10-28] MEDS: Azithromycin 500 MG in 0.9% Normal Saline (250mL Bag) 250 ML 255 MG IV (10:48)
[2024-10-28] MEDS: Magnesium Sulfate 4gm/100mL 4 GM/100 ML IV.SOLN. IV (10:57)
[2024-10-28] MEDS: Acetylcysteine 800 MG/4 ML VIAL.NEB. INHALATION ×3 (11:34→19:54)
--- NOTE | 2024-10-28 13:11 | RAD_ITS ---
PROCEDURE: CXR FOR LINE PLACEMENT 10/28/2024 REASON FOR EXAM: PICC LINE PLACED TECHNIQUE: Procedure Code: RADCXRLP Modality: DX Procedure: CXR FOR LINE PLACEMENT COMPARISON: 10/26/2024 CT. FINDINGS: Right PICC terminates in the right atrium. Bibasilar consolidative opacities in a pattern favoring infection. Atelectasis is possible. RAD/CXR for Line Placement IMPRESSION: As above. Reading Location: [id number]
[2024-10-28] MEDS: Vancomycin Trough/Random Due 1 LAB MC (13:26)
[2024-10-28 13:32] LABS: Vancomycin, Trough Level 12.2 ug/mL (5.0-15.0)
--- NOTE | 2024-10-28 13:35 | PN.SURG_ITS ---
Subjective Subjective Patient seen and evaluated on rounds earlier this morning. Patient overall stable although he seems to have a more productive cough today compared to yesterday and his daughter states that he seems a bit more confused today. His cough is somewhat weak. White count down slightly this morning but still 18,000. LFTs remain stable Objective Data Objective Data Vital Signs: Vital Signs Temp Pulse Resp BP Pulse Ox O2 Del Method O2 Flow Rate 98.3 F 77 26 H 135/75 H 94 Nasal Cannula 2 10/28/24 12:00 10/28/24 13:00 10/28/24 13:00 10/28/24 13:00 10/28/24 13:00 10/28/24 13:00 10/28/24 13:00 Oxygen Flow Rate (L/min) 2 Oxygen Delivery Method Nasal Cannula Weight: 213 lb 6.519 oz Body Mass Index (BMI) 28.9 Intake & Output: Intake and Output for Last 24 Hours 10/26/24 10/27/24 10/28/24 23:59 23:59 23:59 Intake Total 50 / 50 4557.75 / 4557.75 1853.59 / 1853.59 Output Total 400 / 400 600 / 600 Balance 50 / 50 4157.75 / 4157.75 1253.59 / 1253.59 Lab / Micro Data 10/28/24 05:39 10/28/24 05:39 Labs: Laboratory Results - last 24 hr 10/27/24 17:59: POC Glucose 111 H 10/28/24 05:38: POC Glucose 188 H 10/28/24 05:39: WBC 18.7 H, RBC 4.09 L, Hgb 12.4 L, Hct 37.0 L, MCV 90.5, MCH 30.3, MCHC 33.5, RDW Std Deviation 52.0 H, RDW Coeff of Pollo 15.7 H, Plt Count 191, MPV 10.3, Immature Gran % (Auto) 1.400 H, Neut % (Auto) 90.7 H, Lymph % (Auto) 3.9 L, [place] % (Auto) 3.2, Eos % (Auto) 0.5, Baso % (Auto) 0.3, Absolute Neuts (auto) 16.9 H, Absolute Lymphs (auto) 0.73 L, Nucleated RBC % 0, Differential Comment SCANNED, Sodium 139, Potassium 4.1, Chloride 108, Carbon Dioxide 18.1 L, Anion Gap 13, BUN 29 H, Creatinine 1.63 H, Estim Creat Clear Calc 34.38 L, Est GFR (MDRD) Non-Af 40 L, BUN/Creatinine Ratio 17.6, Glucose 205 H, Calcium 8.5, Magnesium 1.6, Total Bilirubin 1.39 H, AST 20, ALT 8, Alkaline Phosphatase 64, Total Protein 5.8 L, Albumin 3.5, Globulin 2.3, Albumin/Globulin Ratio 1.5, TSH 1.440, Free T4 0.90 10/28/24 11:55: POC Glucose 127 H 10/28/24 13:00: Vancomycin Trough 12.2 Micro: Microbiology 10/27/24 09:24 Mucosa - Nasopharyngeal Coronavirus COVID-19 PCR - Final 10/27/24 01:25 Nasal Secretion MRSA (PCR) - Final 10/27/24 00:52 Mucosa - Nasopharyngeal Respiratory Panel (PCR) - Final 10/27/24 02:25 Urine, Random Legionella Antigen - Final 10/27/24 02:25 Urine, Random Streptococcus pneumoniae Antigen (M - Final Radiography Diagnostic Testing: Radiology Impression Abdomen X-Ray 10/28/24 09:30 IMPRESSION: Mild constipation. Probable left lung base infiltrate/pleural fluid. Reading Location: [facility] Physical Exam Narrative He is alert and oriented. He does not seem to be in acute distress Abdomen is soft yet distended. There is mild to moderate diffuse tenderness to palpation. The level of tenderness seems slightly less today. No rebound no guarding Assessment & Plan Assessment/Plan (1) Sepsis: (2) Lactic acidosis: (3) Acute cholecystitis: (4) Dyspnea on exertion: PLAN: Plan Patient is an 89-year-old male with multiple medical problems who presented with abdominal pain secondary to acute cholecystitis/cholelithiasis. I feel that this patient is at high risk for surgery mostly from a pulmonary standpoint. Namely, patient most likely has a developing pneumonia, recent rib fractures limiting full inspiration, and patient was hospitalized/intubated for severe COVID infection earlier this year. Rather than proceed with a laparoscopic cholecystectomy, I feel that is most prudent for patient to undergo percutaneous cholecystostomy tube to address the cholecystitis without the risks of a general anesthesia especially in light of his current medical condition. Patient and family are in agreement with this plan. Hospitalist also in agreement. Order placed for percutaneous cholecystostomy tube to be performed tomorrow. Recommend continuing to hold Eliquis. Will discuss with radiology in a.m. Continue IV antibiotics and medical management Charges/Coding Visit Charges Inpatient E&M: 94277 Subs Hosp L3
--- NOTE | 2024-10-28 14:07 | PCM.RX.CS ---
Consult Antibiotic Management Pharmacy has been consulted to manage selected antibiotic: Vancomycin Type of Intervention Type of Consult: Follow-up Suspected Infection Suspected Infection: Sepsis Labs Labs: Sodium 139 mmol/L (133-145) 10/28/24 05:39 Potassium 4.1 mmol/L (3.3-5.1) 10/28/24 05:39 Chloride 108 mmol/L (98-108) 10/28/24 05:39 Carbon Dioxide 18.1 mmol/L (21.0-32.0) L 10/28/24 05:39 Anion Gap 13 (5-15) 10/28/24 05:39 BUN 29 mg/dL (4-19) H 10/28/24 05:39 Creatinine 1.63 mg/dL (0.70-1.20) H 10/28/24 05:39 Est GFR (MDRD) Non-Af 40 (>60) L 10/28/24 05:39 BUN/Creatinine Ratio 17.6 RATIO (10-20) 10/28/24 05:39 Glucose 205 mg/dL (70-99) H 10/28/24 05:39 Vancomycin Trough 12.2 ug/mL (5.0-15.0) 10/28/24 13:00 Microbiology Microbiology: Microbiology 10/27/24 09:24 Mucosa - Nasopharyngeal Coronavirus COVID-19 PCR - Final 10/27/24 01:25 Nasal Secretion MRSA (PCR) - Final 10/27/24 00:52 Mucosa - Nasopharyngeal Respiratory Panel (PCR) - Final 10/27/24 02:25 Urine, Random Legionella Antigen - Final 10/27/24 02:25 Urine, Random Streptococcus pneumoniae Antigen (M - Final Goal Trough Goal Trough: 15-20 mcg/mL Pharmacy Plan for Drug Dosing Pharmacy Plan for Drug Dosing: VANCOMYCIN LEVEL RECEIVED Current Vancomycin Dose: 750mg q12h (0130,1330) Number of Doses Received: x1 2000mg dose, x2 750mg doses Vancomycin Level: 12.2 (drawn 1300) Hours Since Last Dose: 11 hours since last 750mg dose (10/28/24 at 0211) Renal Function: SrCr 1.63 Renal Function Trend: SrCr increasing (was 1.27 on 10/27/24) Lab/Micro: Vancomycin Plan/Comments: trough resulted at 12.2 which is below the ordered goal trough of 15-20. pt likely not yet at steady state and SrCr is increasing. Recommend continuing current dose of 750mg q12h and checking another trough in 4 doses Pending Level: 10/30/24 at 0100 Pharmacy Service will continue to monitor and adjust dosing as required. Follow-Up Labs Follow-Up Labs: Trough: Vancomycin (10/30/24 at 0100)
--- NOTE | 2024-10-28 14:10 | RAD_ITS ---
PROCEDURE: CXR FOR LINE PLACEMENT 10/28/2024 REASON FOR EXAM: LINE REPOSITION TECHNIQUE: Procedure Code: RADCXRLP Modality: DX Procedure: CXR FOR LINE PLACEMENT COMPARISON: Same-day radiograph. FINDINGS: Right PICC now terminates at the superior cavoatrial junction. No change in pulmonary opacities. RAD/CXR for Line Placement IMPRESSION: Right PICC as above. Reading Location: [id number]
[2024-10-28 14:38] LABS: Allen Test Positive; Base Excess 4 mmol/L (-2 to +2); FI02 2.0; PO2 70 mmHG (75-100); SITE L Radial; SO2 94 % (95-99)
--- NOTE | 2024-10-28 15:34 | EKG12_ITS ---
Test Reason : R shoulder pain Blood Pressure : */* mmHG Vent. Rate : 87 BPM Atrial Rate : * BPM P-R Int : * ms QRS Dur : 146 ms QT Int : 390 ms P-R-T Axes : * 61 -22 degrees QTcB Int : 469 ms Atrial fibrillation Right bundle branch block Inferior infarct , age undetermined Abnormal ECG No previous ECGs available Confirmed by Karlos Bella ([id number]), loan expeditor KYLEE BOSE ([id number]) on 10/29/2024 10:08:44 AM Referred By: Juice Confirmed By: Karlos Bella
[2024-10-29] VITALS (41 sets, daily range): BP systolic 94–173; BP diastolic 70–124; PULSE 93–141; RESP 16–30; TEMP 36.7; O2SAT 90–98; BMI 28.6
[2024-10-29] MEDS: guaiFENesin 10 ML UDC (200MG/10ML) PO ×2 (01:01→05:25)
[2024-10-29] MEDS: Vancomycin HCl 750 MG in 0.9% Normal Saline (250mL Bag) 250 ML 250 MG IV (01:28)
--- NOTE | 2024-10-29 02:54 | NURSING ---
Pt attempting to climb out of bed to pee. Attempted benavides catheter without success. Assisted pt up to BS to void, unsuccessful also. Patient becoming increasingly agitated and wanted to go home. Patient asking for the police, security at bedside. PRN haldol ordered for agitated by Dr. Triplett.
[2024-10-29] MEDS: 0.9% Saline Lock 10 ML Syringe IV ×5 (03:07→17:47)
[2024-10-29 03:16] LABS: Hematocrit 37.8 % (40-54); Hemoglobin 12.7 g/dL (13.0-16.5); Immature Granulocytes Count 0.310 X10^3/uL (0.0-0.0); Mean Corp Hgb Conc 33.6 g/dL (32-36); Mean Corpuscular Volume 89.2 fL (80-94); Mean Platelet Vol. 10.1 fl (6.2-12.0); NRBC Flagged by Analyzer 0 % (0-5); POSITIVE DIFFERENTIAL YES; POSITIVE MORPHOLOGY YES; Platelet Count 177 K/mm3 (150-450); RBC Distribution Width CV 15.6 % (11.6-14.6); RBC Distribution Width SD 50.9 fl (35.1-43.9); Red Blood Count 4.24 M/mm3 (4.6-6.2); White Blood Count 16.8 K/mm3 (4.4-11.0)
[2024-10-29 03:21] LABS: Differential Indicated SCAN CRITERIA MET
[2024-10-29 04:05] LABS: Anion Gap 10 (5-15); BUN 30 mg/dL (4-19); BUN/Creat Ratio 20.4 RATIO (10-20); Calcium,Total 9.0 mg/dL (7.6-11.0); Carbon Dioxide 20.9 mmol/L (21.0-32.0); Chloride 110 mmol/L (98-108); Estimated Creatinine Clearance 42.19 ml/min (50-250); Glucose 173 mg/dL (70-99); Potassium 4.2 mmol/L (3.3-5.1)
[2024-10-29 04:56] LABS: Dohle Bodies 1+; Toxic Granulation 1+
[2024-10-29 04:57] LABS: Acanthocytes 1+; Anisocytosis 1+; Crenated RBC 3+; Polychromasia 1+
[2024-10-29] MEDS: Piperacil/Tazobactam 3.375 GM in 0.9% Normal Saline (50mL MB+) 50 ML IV ×3 (05:24→21:25)
--- NOTE | 2024-10-29 05:55 | CT_ITS ---
EXAM: CT-guided drainage of cholecystitis gallbladder. CLINICAL HISTORY: Cholecystitis. COMPARISON: Chest CT of 10/26/2024. TECHNIQUE: CT-guided drainage of cholecystitis gallbladder. FINDINGS: Limited images of the lung bases shows small right pleural effusion and significant bibasilar atelectasis. Imaging of the gallbladder now shows the presence of some air bubbles within the gallbladder, strongly supportive of the diagnosis of cholecystitis. Conscious sedation was employed during this procedure. Start time of 1008 hours and stop time of 1050 hours. 1 mg Versed intravenous and 25 mcg fentanyl intravenous were employed. Procedure: Following informed consent, and using standard sterile technique, a CT-guided gallbladder drainage was performed. 2% lidocaine local anesthesia was followed by placement of an 18 gauge Chiba needle and then an 8 Omani pigtail catheter was exchanged over a wire. A proximally 90 mL of bloody appearing fluid was successfully removed and sent to the laboratory for evaluation. The 8 [place]i pigtail catheter was left in place, with a Ravinder-Quevedo drain attached. No complication was encountered, in the patient left the department in good condition without significant complaint. CT/Biopsy/Inj or Needle Placement IMPRESSION: Successful drainage of the gallbladder, with drain left in place. Laboratory r esults pending. Reading Location: [place] [address]
[2024-10-29] MEDS: Budesonide Respules 0.5 MG/2 ML AMPUL.NEB. INHALATION ×2 (07:16→19:27)
[2024-10-29] MEDS: Ipratropium 0.5 MG/2.5 ML SOLUTION INHALATION ×2 (07:16→15:17)
[2024-10-29] MEDS: Acetylcysteine 800 MG/4 ML VIAL.NEB. INHALATION ×2 (07:16→15:17)
[2024-10-29] MEDS: Pantoprazole Sodium 40 MG in 0.9% Normal Saline (100mL MB+) 100 ML 330 MG IV ×2 (07:39→21:19)
[2024-10-29] MEDS: Azithromycin 500 MG in 0.9% Normal Saline (250mL Bag) 250 ML 255 MG IV (09:10)
[2024-10-29 09:18] LABS: Partial Thromboplast Time 48.5 Seconds (24.1-36.2); Prothrombin Time (Protime)PT. 21.7 SECONDS (11.7-14.9)
--- NOTE | 2024-10-29 09:20 | NURSING ---
patient transported to radiology for procedure at this time.
--- NOTE | 2024-10-29 09:22 | PCM.PN.HOSP ---
Reason for Visit Chief Complaint: Abdominal pain, N/V. Objective Data Objective Data Vital Signs: Vital Signs Temp Pulse Resp BP Pulse Ox O2 Del Method O2 Flow Rate 98.0 F 120 H 24 H 127/86 H 94 Nasal Cannula 4 10/29/24 03:00 10/29/24 07:28 10/29/24 07:17 10/29/24 07:00 10/29/24 07:17 10/29/24 07:17 10/29/24 07:17 Oxygen Flow Rate (L/min) 4 Oxygen Delivery Method Nasal Cannula Weight: 211 lb 6.773 oz Body Mass Index (BMI) 28.6 Intake & Output: Intake and Output for Last 24 Hours 10/27/24 10/28/24 10/29/24 23:59 23:59 23:59 Intake Total 4557.75 / 4557.75 3646.34 / 3646.34 1415 / 1415 Output Total 400 / 400 760 / 760 30 / 30 Balance 4157.75 / 4157.75 2886.34 / 2886.34 1385 / 1385 Lab / Micro Data 10/29/24 03:07 10/29/24 03:07 Labs: Laboratory Results - last 24 hr 10/28/24 11:55: POC Glucose 127 H 10/28/24 13:00: Vancomycin Trough 12.2 10/28/24 18:04: POC Glucose 124 H 10/28/24 23:07: POC Glucose 148 H 10/29/24 03:07: WBC 16.8 H, RBC 4.24 L, Hgb 12.7 L, Hct 37.8 L, MCV 89.2, MCH 30.0, MCHC 33.6, RDW Std Deviation 50.9 H, RDW Coeff of Pollo 15.6 H, Plt Count 177, MPV 10.1, Immature Gran % (Auto) 1.900 H, Neut % (Auto) 90.7 H, Lymph % (Auto) 3.5 L, [place] % (Auto) 3.5, Eos % (Auto) 0.2, Baso % (Auto) 0.2, Absolute Neuts (auto) 15.2 H, Absolute Lymphs (auto) 0.59 L, Nucleated RBC % 0, Toxic Granulation 1+, Dohle Bodies 1+, Platelet Estimate ADEQUATE, Polychromasia 1+, Anisocytosis 1+, Crenated Cell 3+, Acanthocytes (Spur) 1+, Sodium 140, Potassium 4.2, Chloride 110 H, Carbon Dioxide 20.9 L, Anion Gap 10, BUN 30 H, Creatinine 1.46 H, Estim Creat Clear Calc 42.19 L, Est GFR (MDRD) Non-Af 46 L, BUN/Creatinine Ratio 20.4 H, Glucose 173 H, Hemoglobin A1c 6.3 H, Calcium 9.0 10/29/24 05:23: POC Glucose 134 H 10/29/24 08:30: PT 21.7 H, INR 1.9, APTT 48.5 H Micro: Microbiology 10/27/24 09:24 Mucosa - Nasopharyngeal Coronavirus COVID-19 PCR - Final 10/27/24 01:25 Nasal Secretion MRSA (PCR) - Final 10/27/24 00:52 Mucosa - Nasopharyngeal Respiratory Panel (PCR) - Final 10/27/24 02:25 Urine, Random Legionella Antigen - Final 10/27/24 02:25 Urine, Random Streptococcus pneumoniae Antigen (M - Final ABG Data ABG results: ABG 10/28/24 14:35 Specimen Type ART Sample Site L Radial pH 7.43 Bicarbonate Actual 28.7 H Total CO2 30 Base Excess 4 H O2 Saturation 94 L O2 % 2.0 ABG pCO2 43.3 ABG pO2 70 L Bronosn Test Positive O2 Delivery Device CPAP Vent Mode Not entered Radiography Diagnostic Testing: Radiology Impression Abdomen X-Ray 10/28/24 09:30 IMPRESSION: Mild constipation. Probable left lung base infiltrate/pleural fluid. Reading Location: [id number] Chest X-Ray 10/28/24 13:11 IMPRESSION: As above. Reading Location: [id number] Chest X-Ray 10/28/24 14:10 IMPRESSION: Right PICC as above. Reading Location: [id number] Physical Exam Narrative Seen and examined Urine retention overnight, had to be catheterized, coud?'s catheter. As per the patient had history of urinary retention and self-catheterization about a year ago and then got better. He follows urologist outside. Exact diagnosis she could not tell me but probably may be BPH/weak bladder/detrusor/detrusor sphincter dyssynergy Shortness of breath similar to yesterday coarse breathing from upper respiratory secretions, not able to cough out. Patient stated he also did not move bowel or flatus for 3 days but had smear yesterday. He also mildly confused. near the bedside. A-fib, heart rate controlled. Physical exam General: Awake, confused with time. HEENT: Atraumatic, PERRLA, EOMI, Normocephalic. Oral: No Gingival or Mucosal Lesions/ Ulcerations Neck: Supple, No JVD, Negative Carotid Bruits Chest wall/Lungs: Air entry diminished in bilateral lung bases. Bilateral coarse crepitation right more than left Cardiovascular: irregular rate and rhythm no M/G/R Abdomen: Bowel Sounds sluggish, Soft, tenderness present on right upper quadrant, abdomen distended : Deep luana-colored. Blood and clots. No renal angle tenderness. No suprapubic tenderness. Extremities: No edema, Capillary Refill Less than 3 Seconds Skin: No rashes, No breakdown Musculoskeletal: No Tenderness to Palpation of Joints or Extremities. Chronic bony scar on bilateral lower legs. Neurological: Cranial nerves II-XII grossly intact, DTR 2+/4. No acute focal neurological deficit. Psych/Mental Status: Flat affect, retrograde amnesia Assessment & Plan Assessment/Plan (1) Sepsis: (2) Acute cholecystitis: PLAN: Plan The patient is an 89 y/o M #1. Sepsis, probably acute cholecystitis with cholelithiasis/bilateral pneumonia: Patient had tachycardia, tachypnea, hypoxic lactic acidosis and leukocytosis. Blood pressure still maintained. Patient on sepsis protocol, broad-spectrum IV antibiotic as mentioned in H&P. Sepsis note reviewed in H&P. Surgeon is being consulted. [employer] consulted. Urinary antigens, respiratory panel and MRSA nasal screen are negative. Liver chemistry shows normal transaminases alkaline phosphatase but total bilirubin 1.36 mildly elevated 9/7:No fever. Leukocytosis. With multiple comorbidities, there is high risk for cholecystectomy for acute cholecystitis with cholelithiasis. Agreed with the surgeon, for recommendation of percutaneous cholecystostomy tube and maybe later cholecystectomy and patient is physically more stronger. Patient currently has questionable pneumonia with a right-sided rib fracture after fall about a month ago. Dyspnea at rest. 10/29: Patient cholecystostomy tube placed. Leukocytosis improving. Cholecystostomy fluid sent for culture #2. 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 Patient also had fall about a month ago with poor respiratory excursion. Chest CT initially reviewed and shows RML nodular opacity measuring 1.9 x 2.5 cm, interlobular septal and peribronchial interstitial thickening bilaterally and dependent opacity in bilateral lung bases. MRSA nasal screen, respiratory panel, urinary antigen and COVID PCR are negative. Blood culture pending. 10/28: URI mucous plugging. Mucomyst inhalation added. On bronchodilator and guaifenesin. 10/29: Patient still congested with upper airway mucus. #3. Recent mechanical fall on anticoagulant therapy: Patient per report from fell to the right side and not surprisingly on CT imaging demonstrated a nonacute right anterior lateral 6th through 9th rib fractures as well as old lateral left 10th rib fracture, holding anticoagulant therapy as noted, PT/OT/case management consulted for discharge planning. #4. PAF with RVR: Likely secondary to his acute illness #1, improved rate in the ED with ED IV labetalol and lopressor, will continue metoprolol as able, holding Eliquis given surgical intervention needs. Most recently noted echocardiogram 10/01/2023 with EF 70%, mildly enlarged LA, trivial MVI with repeat echo requested. 10/28: Heart rate is controlled 10/29: Heart rate variable, 110-136 point respiratory 22 probably related to acute cholecystitis. On metoprolol oral scheduled and IV as needed. #5. Chronic Kidney Disease Stage IIIa: Admission BUN/Cr 20/1.27, GFR 54, baseline renal function primarily more recently noted 1.2-1.6, most recently 10/01/2023 which is unfortunately remote noted to be 1.47, repeat CMP in a.m. to further elucidate what patient's level is currently. 10/28: BUN/creatinine 29/1.63. Creatinine went up from 1.27-1.63. Abdominal x-ray ordered to look for bowel distention probably third volume sequestration. Diabetes mellitus type II: Hold oral home regimen, n.p.o. status given presentation as noted, maintain on every 6 hours accu checks w/ ISS. NPO. 9/7: Glucose is 111. 9/8: A1c 6.3%. Glucose 173. #9. Hypertension: BP 150/100 #10. Hyperlipidemia: Patient is n.p.o.. Will need necessary medications #11. Hx CVA w/ associated memory impairment: Hold oral metoprolol, IV metoprolol as needed #12. Former tobacco use: Encouraged continued tobacco cessation. #13. BPH: From records noted status post TURP status, not on any chronic regimen, monitor for retention. #14. GERD: maintain on IV PPI. #15. DVT prophylaxis: SCDs, holding Eliquis given need for intervention. #16. CODE status: Patient HCPOA is his who is present and living will is currently in place. Discussed CODE status at length including difference between FULL code, DNR-CCA and DNR-CC status. Charges/Coding Visit Charges Inpatient E&M: 93011 Subs Hosp L3
--- NOTE | 2024-10-29 09:52 | PCM.PN.SRG ---
Subjective Subjective Patient evaluated resting comfortably in bed receiving a breathing treatment. He notes abdominal pain in the right upper quadrant. Objective Data Objective Data Vital Signs: Vital Signs Temp Pulse Resp BP Pulse Ox O2 Del Method O2 Flow Rate 98.0 F 104 H 22 H 158/105 H 93 Nasal Cannula 4 10/29/24 08:00 10/29/24 09:32 10/29/24 09:32 10/29/24 09:32 10/29/24 09:32 10/29/24 09:32 10/29/24 09:32 Oxygen Flow Rate (L/min) 4 Oxygen Delivery Method Nasal Cannula Weight: 211 lb 6.773 oz Body Mass Index (BMI) 28.6 Intake & Output: Intake and Output for Last 24 Hours 10/27/24 10/28/24 10/29/24 23:59 23:59 23:59 Intake Total 4557.75 / 4557.75 3646.34 / 3646.34 1465 / 1465 Output Total 400 / 400 760 / 760 30 / 30 Balance 4157.75 / 4157.75 2886.34 / 2886.34 1435 / 1435 Lab / Micro Data 10/29/24 03:07 10/29/24 03:07 Labs: Laboratory Results - last 24 hr 10/28/24 11:55: POC Glucose 127 H 10/28/24 13:00: Vancomycin Trough 12.2 10/28/24 18:04: POC Glucose 124 H 10/28/24 23:07: POC Glucose 148 H 10/29/24 03:07: WBC 16.8 H, RBC 4.24 L, Hgb 12.7 L, Hct 37.8 L, MCV 89.2, MCH 30.0, MCHC 33.6, RDW Std Deviation 50.9 H, RDW Coeff of Pollo 15.6 H, Plt Count 177, MPV 10.1, Immature Gran % (Auto) 1.900 H, Neut % (Auto) 90.7 H, Lymph % (Auto) 3.5 L, [place] % (Auto) 3.5, Eos % (Auto) 0.2, Baso % (Auto) 0.2, Absolute Neuts (auto) 15.2 H, Absolute Lymphs (auto) 0.59 L, Nucleated RBC % 0, Toxic Granulation 1+, Dohle Bodies 1+, Platelet Estimate ADEQUATE, Polychromasia 1+, Anisocytosis 1+, Crenated Cell 3+, Acanthocytes (Spur) 1+, Sodium 140, Potassium 4.2, Chloride 110 H, Carbon Dioxide 20.9 L, Anion Gap 10, BUN 30 H, Creatinine 1.46 H, Estim Creat Clear Calc 42.19 L, Est GFR (MDRD) Non-Af 46 L, BUN/Creatinine Ratio 20.4 H, Glucose 173 H, Hemoglobin A1c 6.3 H, Calcium 9.0 10/29/24 05:23: POC Glucose 134 H 10/29/24 08:30: PT 21.7 H, INR 1.9, APTT 48.5 H Micro: Microbiology 10/27/24 09:24 Mucosa - Nasopharyngeal Coronavirus COVID-19 PCR - Final 10/27/24 01:25 Nasal Secretion MRSA (PCR) - Final 10/27/24 00:52 Mucosa - Nasopharyngeal Respiratory Panel (PCR) - Final 10/27/24 02:25 Urine, Random Legionella Antigen - Final 10/27/24 02:25 Urine, Random Streptococcus pneumoniae Antigen (M - Final ABG Data ABG results: ABG 10/28/24 14:35 Specimen Type ART Sample Site L Radial pH 7.43 Bicarbonate Actual 28.7 H Total CO2 30 Base Excess 4 H O2 Saturation 94 L O2 % 2.0 ABG pCO2 43.3 ABG pO2 70 L Bronson Test Positive O2 Delivery Device CPAP Vent Mode Not entered Radiography Diagnostic Testing: Radiology Impression Abdomen X-Ray 10/28/24 09:30 IMPRESSION: Mild constipation. Probable left lung base infiltrate/pleural fluid. Reading Location: [id number] Chest X-Ray 10/28/24 13:11 IMPRESSION: As above. Reading Location: [id number] Chest X-Ray 10/28/24 14:10 IMPRESSION: Right PICC as above. Reading Location: [id number] Physical Exam GI GI Narrative: Abdomen- soft, tenderness in the RUQ with guarding Assessment & Plan Assessment/Plan (1) Acute cholecystitis: PLAN: I am following this patient in conjunction with Dr. Cavazos. He will independently evaluate this patient. Plan for a akash tube today in radiology Patient with multiple co-morbidities and at higher risk for surgery We will continue to moniotr this patient Charges/Coding Visit Charges Inpatient E&M: 46439 Subs Hosp L2
[2024-10-29] MEDS: fentaNYL 100 MCG/2 ML Ampul IV (10:08)
--- NOTE | 2024-10-29 10:19 | PN.CC_ITS ---
Objective Data Objective Data Vital Signs: Vital Signs Last response 3 Temperature 36.7 C 10/29/24 08:00 Temperature Source Temporal 10/29/24 08:00 Pulse Rate 104 H 10/29/24 09:32 Pulse Strength Normal (2+) 10/29/24 09:22 Respiratory Rate 22 H 10/29/24 09:32 Respiratory Effort Normal, Non-Labored 10/29/24 08:00 Respiratory Depth Normal 10/29/24 08:00 Respiratory Pattern Normal 10/29/24 09:29 Blood Pressure 158/105 H 10/29/24 09:32 Blood Pressure Mean 122 10/29/24 09:00 Blood Pressure Source Monitor 10/29/24 09:00 Blood Pressure Position Semi-Fowlers 10/29/24 09:00 Blood Pressure Location Left Arm 10/29/24 09:00 Baseline BP 158/105 10/29/24 09:32 Pulse Ox 93 10/29/24 09:32 Oxygen Delivery Method Nasal Cannula 10/29/24 09:32 Oxygen Flow Rate (L/min) 4 10/29/24 09:32 I&O: I&O Last 24 Hours 3 10/28/24 10/28/24 10/29/24 11:59 23:59 11:59 Intake Total 1592.42 / 3646.34 2053.92 / 3646.34 1720 / 1720 Output Total 600 / 760 160 / 760 30 / 30 Balance 992.42 / 2886.34 1893.92 / 2886.34 1690 / 1690 I&O: Total Stay 3 10/26/24 16:39 thru 10/29/24 10:13 Intake Total 9974.09 Output Total 1190 Balance 8784.09 Current Meds Ordered / Administered: Current meds ordered / Administered 3 Generic Name Dose Route Start Last Admin Trade Name Freq PRN Reason Stop Dose Admin Acetaminophen 650 mg 10/27/24 00:32 Acetaminophen 325 Mg Tablet PO Q4H PRN PRN Fever, pain 1-10/10 Acetylcysteine 800 mg 10/28/24 09:30 10/29/24 07:16 Acetylcysteine 800 Mg/4 Ml Vial.Neb. INHALATION 800 mg Q4H.RT SOLEDAD Administration Atorvastatin Calcium 40 mg 10/27/24 22:00 10/28/24 20:41 Atorvastatin Calcium 40 Mg Tablet PO 40 mg QHS SOLEDAD Administration Budesonide 0.5 mg 10/27/24 08:00 10/29/24 07:16 Budesonide Respules 0.5 Mg/2 Ml Ampul.Neb. INHALATION 0.5 mg BID.RT SOLEDAD Administration Calamine/Phenol 1 applic 10/27/24 10:00 10/29/24 07:39 Menthol/Lanolin/Calamine/Znox 113 Gm Tube TOPICAL 1 applic 4X/DAY SOLEDAD Administration Protocol Fentanyl Citrate 25 - 50 mcg 10/29/24 09:00 10/29/24 10:08 Fentanyl 100 Mcg/2 Ml Ampul IV 10/29/24 23:59 25 mcg UD PRN Administration Procedural Pain Control Flumazenil 0.2 mg 10/29/24 09:00 Flumazenil 0.5 Mg/5 Ml Vial IV Q1M PRN Respirations <10 per minute Glucagon 1 mg 10/27/24 00:32 Glucagon 1 Mg/Ml Syringe IM X1 PRN HYPOGLYCEMIA Protocol Guaifenesin 10 ml 10/28/24 09:30 10/29/24 05:25 Guaifenesin 10 Ml Udc (200mg/10ml) PO 10 ml Q4H SOLEDAD Administration Haloperidol Lactate 0.5 mg 10/29/24 02:48 10/29/24 02:56 Haloperidol Lactate 5 Mg/Ml Vial IV 0.5 mg Q4H PRN PRN Administration AGITATION Protocol Hydralazine HCl 10 mg 10/27/24 00:32 Hydralazine 20 Mg/Ml Vial IV Q4H PRN PRN SBP > 160 Protocol Pantoprazole Sodium 40 mg/ 100 mls @ 330 mls/hr 10/27/24 00:32 10/29/24 08:40 Sodium Chloride IV Infused Q12 SOLEDAD Infusion Piperacillin Sod/Tazobactam 50 mls @ 12.5 mls/hr 10/27/24 06:00 10/29/24 09:40 Sod 3.375 gm/ Sodium Chloride IV Infused Q8 SOLEDAD Infusion Azithromycin 500 mg/ Sodium 255 mls @ 255 mls/hr 10/27/24 10:00 10/29/24 10:13 Chloride IV 11/01/24 10:01 Infused Q24 SOLEDAD Infusion Dextrose 250 mls @ 0 mls/hr 10/27/24 00:32 Dextrose 10%-Water IV .Q0M PRN HYPOGLYCEMIA Protocol As Directed Sodium Chloride 250 mls @ 15 mls/hr 10/27/24 01:21 IV .[id number] PRN Saline Flush Sodium Chloride 250 mls @ 15 mls/hr 10/27/24 01:21 10/28/24 21:19 IV 0 mls/hr .[id number] PRN Infusion Additional IVPB Infusion Dextrose/Lactated Ringer's 1,000 mls @ 75 mls/hr 10/27/24 14:45 10/29/24 09:18 IV 75 mls/hr .[id number] SOLEDAD Administration Sodium Chloride 250 mls @ 15 mls/hr 10/29/24 09:00 IV 10/29/24 23:59 .[id number] SOLEDAD Insulin Human Lispro 0 unit 10/27/24 00:32 10/29/24 05:25 Insulin Lispro 100 Unit/Ml Insuln.Pen SC Not Given Q6 SOLEDAD Protocol Ipratropium [place] 0.5 mg 10/27/24 00:32 10/29/24 07:16 Ipratropium 0.5 Mg/2.5 Ml Solution INHALATION 0.5 mg Q4HWA.RT SOLEDAD Administration Metoprolol Tartrate 50 mg 10/27/24 10:00 10/28/24 20:41 Metoprolol Tartrate 50 Mg Tablet PO 50 mg BID SOLEDAD Administration Protocol Metoprolol Tartrate 5 mg 10/27/24 07:41 Metoprolol Tartrate 5 Mg/5 Ml Vial IV Q6H PRN PRN TO CONTROL HEART RATE Protocol Midazolam HCl 1 - 2 mg 10/29/24 09:00 Midazolam 2 Mg/2 Ml Syringe IV 10/29/24 23:59 UD PRN Procedural Sedation Morphine Sulfate 2 mg 10/27/24 00:32 10/28/24 23:57 Morphine 2 Mg/Ml Syringe IV 2 mg Q3H PRN PRN Administration Pain Score 6-10 Naloxone HCl 0.02 mg 10/29/24 09:00 Naloxone 0.02mg/0.5ml Syringe Kit IV Q1M PRN Respiratory Depression Ondansetron HCl 4 mg 10/27/24 00:32 10/27/24 11:27 Ondansetron 4 Mg/2 Ml Vial IV 4 mg Q8H PRN PRN Administration NAUSEA/VOMITING Oxycodone HCl 2.5 mg 10/27/24 00:32 10/28/24 17:04 Oxycodone 5 Mg Tablet PO 2.5 mg Q4H PRN PRN Administration Pain Score 4-10 Senna/Docusate Sodium 2 tablet 10/28/24 09:30 10/28/24 20:42 Senna/Docusate Sodium 1 Tablet PO 2 tablet BID SOLEDAD Administration Sodium Chloride 10 - 40 ml 10/27/24 01:21 10/29/24 10:08 0.9% Saline Lock 10 Ml Syringe IV 10 ml UD PRN Administration SALINE FLUSH Lab / Micro Data 10/29/24 03:07 10/29/24 03:07 Labs: Laboratory Results - last 24 hr 10/28/24 11:55: POC Glucose 127 H 10/28/24 13:00: Vancomycin Trough 12.2 10/28/24 18:04: POC Glucose 124 H 10/28/24 23:07: POC Glucose 148 H 10/29/24 03:07: WBC 16.8 H, RBC 4.24 L, Hgb 12.7 L, Hct 37.8 L, MCV 89.2, MCH 30.0, MCHC 33.6, RDW Std Deviation 50.9 H, RDW Coeff of Pollo 15.6 H, Plt Count 177, MPV 10.1, Immature Gran % (Auto) 1.900 H, Neut % (Auto) 90.7 H, Lymph % (Auto) 3.5 L, [place] % (Auto) 3.5, Eos % (Auto) 0.2, Baso % (Auto) 0.2, Absolute Neuts (auto) 15.2 H, Absolute Lymphs (auto) 0.59 L, Nucleated RBC % 0, Toxic Granulation 1+, Dohle Bodies 1+, Platelet Estimate ADEQUATE, Polychromasia 1+, Anisocytosis 1+, Crenated Cell 3+, Acanthocytes (Spur) 1+, Sodium 140, Potassium 4.2, Chloride 110 H, Carbon Dioxide 20.9 L, Anion Gap 10, BUN 30 H, Creatinine 1.46 H, Estim Creat Clear Calc 42.19 L, Est GFR (MDRD) Non-Af 46 L, B UN/Creatinine Ratio 20.4 H, Glucose 173 H, Hemoglobin A1c 6.3 H, Calcium 9.0 10/29/24 05:23: POC Glucose 134 H 10/29/24 08:30: PT 21.7 H, INR 1.9, APTT 48.5 H ABG Data ABG results: ABG 10/28/24 14:35 Specimen Type ART Sample Site L Radial pH 7.43 Bicarbonate Actual 28.7 H Total CO2 30 Base Excess 4 H O2 Saturation 94 L O2 % 2.0 ABG pCO2 43.3 ABG pO2 70 L Bronson Test Positive O2 Delivery Device CPAP Vent Mode Not entered Imaging Radiology Impression Chest X-Ray 10/28/24 13:11 IMPRESSION: As above. Reading Location: [address] Chest X-Ray 10/28/24 14:10 IMPRESSION: Right PICC as above. Reading Location: [address] Assessment and Plan . Assessment and plan: Cholecystitis Atrial Fibrillation with RVR Sepsis Hypoxemic Respiratory Failure ? Pna Lactic Acidosis CKD COPD DM PMH: BPH s/p TURP, Histoplasmosis, CVA 2023, COVID Pna 03/2024 PLAN: -agree with plans for C-tube -rate control for afib likely will improve with biliary drainage -Empiric vanc/zosyn/azithro. f/u Cx; will dc vanc after AM dose (discussed with pharmacy) -lactate improved -follow renal indices closely -Budesonide, atrovent nebs -wean O2 as able; once C-tube is in we may be able to begin mobilizing him -assess volume status daily; may require some diuresis as hemodynamics tighten up FEN/GI: NPO Proph DVT/GI: Holding eliquis pending intervention for GB Critical Care Time: 31 minutes The entirety of this encounter was done via Telemedicine Physical Exam Narrative G-elderly male, ill-appearing but NAD ENT- anicteric CV- tachy/irr, no mrg L- limited effort, decreased in bases but no accessory use Ab- s, some discomfort to palpation, no peritoenal signs Ext- no cce Neuro- no focal deficits Const alert General Appearance: cooperative Subjective Subjective No acute events overnight. HR currently in 110s. Some RUQ pain.
[2024-10-29] MEDS: Midazolam 2 MG/2 ML Syringe IV (10:27)
[2024-10-29] MEDS: Lidocaine 2% (20 ml mdv) 20 ML Vial INFILT (10:31)
[2024-10-29] MEDS: Lactated Ringers 1,000 ML 999 ML IV (11:38)
--- NOTE | 2024-10-29 12:25 | PCM.PN.SRG ---
Subjective Subjective Patient clinically stable. Patient just returned from having his cholecystostomy tube placed. No new issues or complaints. White count seems to be slightly decreased today. Objective Data Objective Data Vital Signs: Vital Signs Temp Pulse Resp BP Pulse Ox O2 Del Method O2 Flow Rate 98.0 F 106 H 18 146/106 H 98 Nasal Cannula 4 10/29/24 08:00 10/29/24 12:00 10/29/24 12:00 10/29/24 12:00 10/29/24 12:00 10/29/24 12:00 10/29/24 12:00 Oxygen Flow Rate (L/min) 4 Oxygen Delivery Method Nasal Cannula Weight: 211 lb 6.773 oz Body Mass Index (BMI) 28.6 Intake & Output: Intake and Output for Last 24 Hours 10/27/24 10/28/24 10/29/24 23:59 23:59 23:59 Intake Total 4557.75 / 4557.75 3646.34 / 3646.34 1720 / 1720 Output Total 400 / 400 760 / 760 30 / 30 Balance 4157.75 / 4157.75 2886.34 / 2886.34 1690 / 1690 Lab / Micro Data 10/29/24 03:07 10/29/24 03:07 Labs: Laboratory Results - last 24 hr 10/28/24 13:00: Vancomycin Trough 12.2 10/28/24 18:04: POC Glucose 124 H 10/28/24 23:07: POC Glucose 148 H 10/29/24 03:07: WBC 16.8 H, RBC 4.24 L, Hgb 12.7 L, Hct 37.8 L, MCV 89.2, MCH 30.0, MCHC 33.6, RDW Std Deviation 50.9 H, RDW Coeff of Pollo 15.6 H, Plt Count 177, MPV 10.1, Immature Gran % (Auto) 1.900 H, Neut % (Auto) 90.7 H, Lymph % (Auto) 3.5 L, [place] % (Auto) 3.5, Eos % (Auto) 0.2, Baso % (Auto) 0.2, Absolute Neuts (auto) 15.2 H, Absolute Lymphs (auto) 0.59 L, Nucleated RBC % 0, Toxic Granulation 1+, Dohle Bodies 1+, Platelet Estimate ADEQUATE, Polychromasia 1+, Anisocytosis 1+, Crenated Cell 3+, Acanthocytes (Spur) 1+, Sodium 140, Potassium 4.2, Chloride 110 H, Carbon Dioxide 20.9 L, Anion Gap 10, BUN 30 H, Creatinine 1.46 H, Estim Creat Clear Calc 42.19 L, Est GFR (MDRD) Non-Af 46 L, BUN/Creatinine Ratio 20.4 H, Glucose 173 H, Hemoglobin A1c 6.3 H, Calcium 9.0 10/29/24 05:23: POC Glucose 134 H 10/29/24 08:30: PT 21.7 H, INR 1.9, APTT 48.5 H 10/29/24 12:00: POC Glucose 106 Micro: Microbiology 10/27/24 09:24 Mucosa - Nasopharyngeal Coronavirus COVID-19 PCR - Final 10/27/24 01:25 Nasal Secretion MRSA (PCR) - Final 10/27/24 00:52 Mucosa - Nasopharyngeal Respiratory Panel (PCR) - Final 10/27/24 02:25 Urine, Random Legionella Antigen - Final 10/27/24 02:25 Urine, Random Streptococcus pneumoniae Antigen (M - Final ABG Data ABG results: ABG 10/28/24 14:35 Specimen Type ART Sample Site L Radial pH 7.43 Bicarbonate Actual 28.7 H Total CO2 30 Base Excess 4 H O2 Saturation 94 L O2 % 2.0 ABG pCO2 43.3 ABG pO2 70 L Bronson Test Positive O2 Delivery Device CPAP Vent Mode Not entered Radiography Diagnostic Testing: Radiology Impression Chest X-Ray 10/28/24 13:11 IMPRESSION: As above. Reading Location: [address] Chest X-Ray 10/28/24 14:10 IMPRESSION: Right PICC as above. Reading Location: [address] Physical Exam Narrative Patient is drowsy as related to Versed given during the cholecystostomy tube placement. Drain putting out some blood-tinged fluid. No obvious pus or bile per se Assessment & Plan Assessment/Plan (1) Sepsis: (2) Acute cholecystitis: PLAN: Plan Patient is an 89-year-old male with acute cholecystitis/cholelithiasis and associated sepsis. Patient also with pneumonia. He was felt to be too high risk for surgery given his comorbidities. Cholecystostomy tube was placed today. Recommend continued medical management with IV fluids and antibiotics. Will continue to follow
--- NOTE | 2024-10-29 13:40 | NURSING ---
patient feeling urgency to void, catheter in place with only 30cc of urine out since this am, flushed catheter with 10cc of sterile flush, 10cc return and large clot, no urine. Bladder scanned for >267 14Fr catheter removed and attempted to place 16Fr coude catheter, unsuccessful and large amount of blood. Notified Dr. Bose, urology consulted.
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
--- NOTE | 2024-10-29 19:30 | CPS ---
Mucomyst not given due to not having a short acting bronchodilator ordered with it, HR also elevated at 121bpm
[2024-10-30] VITALS (26 sets, daily range): BP systolic 93–152; BP diastolic 61–107; PULSE 101–148; RESP 15–23; TEMP 36.2–36.9; O2SAT 91–98; BMI 29.7
[2024-10-30] MEDS: Piperacil/Tazobactam 3.375 GM in 0.9% Normal Saline (50mL MB+) 50 ML IV ×3 (05:37→21:42)
[2024-10-30] MEDS: Ipratropium 0.5 MG/2.5 ML SOLUTION INHALATION ×3 (06:55→15:49)
[2024-10-30] MEDS: Budesonide Respules 0.5 MG/2 ML AMPUL.NEB. INHALATION (06:55)
--- NOTE | 2024-10-30 07:09 | PN.SURG_ITS ---
Subjective Subjective Patient evaluated resting comfortably in bed. His notes patient is slightly confused over night. He notes slight amount of pain with palpation in the right upper quadrant. He denies any abdominal pain at rest. Objective Data Objective Data Vital Signs: Vital Signs Temp Pulse Resp BP Pulse Ox O2 Del Method O2 Flow Rate 97.2 F L 108 H 20 H 117/76 97 Nasal Cannula 3 10/30/24 05:00 10/30/24 06:55 10/30/24 06:55 10/30/24 05:00 10/30/24 06:55 10/30/24 06:55 10/30/24 06:55 Oxygen Flow Rate (L/min) 3 Oxygen Delivery Method Nasal Cannula Weight: 219 lb 12.814 oz Body Mass Index (BMI) 29.7 Intake & Output: Intake and Output for Last 24 Hours 10/28/24 10/29/24 10/30/24 23:59 23:59 23:59 Intake Total 3646.34 / 3646.34 3870 / 3870 50 / 50 Output Total 760 / 760 995 / 1185 440 / 440 Balance 2886.34 / 2886.34 2875 / 2685 -390 / -390 Lab / Micro Data 10/29/24 03:07 10/29/24 03:07 Labs: Laboratory Results - last 24 hr 10/29/24 05:23: POC Glucose 134 H 10/29/24 08:30: PT 21.7 H, INR 1.9, APTT 48.5 H 10/29/24 12:00: POC Glucose 106 10/29/24 17:19: POC Glucose 114 H 10/29/24 23:59: POC Glucose 122 H 10/29/24 : Fluid Source Cancelled, Fluid Color Cancelled, Fluid Appearance Cancelled, Fluid WBC Cancelled, Fluid RBC Cancelled, Fluid Tot Cell Count Cancelled, Fld Polynuclear WBCs # Cancelled, Fld Polynuclear WBCs % Cancelled, Fluid Mononuclear WBCs Cancelled, Fld Mononuclear WBCs % Cancelled, Fluid Neutrophils Cancelled, Fluid Lymphocytes Cancelled, Fluid Monocytes Cancelled, Fluid Plasma Cells Cancelled, Fluid Macrophages Cancelled, Fld Mesothelial Cells Cancelled, Fluid Other Cells Cancelled, Fl Pathologist Comment Cancelled, Fluid Comment 2 Cancelled 10/30/24 05:36: POC Glucose 108 H Micro: Microbiology 10/29/24 Unknown Fluid - Gallbladder Gram Stain - Final 10/27/24 09:24 Mucosa - Nasopharyngeal Coronavirus COVID-19 PCR - Final 10/27/24 01:25 Nasal Secretion MRSA (PCR) - Final 10/27/24 00:52 Mucosa - Nasopharyngeal Respiratory Panel (PCR) - Final 10/27/24 02:25 Urine, Random Legionella Antigen - Final 10/27/24 02:25 Urine, Random Streptococcus pneumoniae Antigen (M - Final Radiography Diagnostic Testing: Radiology Impression Biopsy CT 10/29/24 05:55 IMPRESSION: Successful drainage of the gallbladder, with drain left in place. Laboratory results pending. Reading Location: [place] [address] Physical Exam GI GI Narrative: Abdomen- slight distended. Lauryn tube successfully placed and intact. Fluid appearance is bloody serous at this time. Tenderness to palpation in the right upper quadrant Assessment & Plan Assessment/Plan (1) Sepsis: (2) Acute cholecystitis: PLAN: Plan I am following this patient in conjunction with Dr. Cavazos. He will independently evaluate this patient Labs pending 90 mL were drained from the gallbladder yesterday during the procedure Recommend stripping the drain three times per day No surgical intervention planned at this time We will continue to monitor this patient Charges/Coding Visit Charges Inpatient E&M: 31218 [facility] L2
--- NOTE | 2024-10-30 07:36 | PCM.PN.INT ---
Assessment & Plan Assessment/Plan (1) Sepsis: (2) Acute cholecystitis: PLAN: Plan RECOMMENDATIONS: 1. Continue antimicrobials as ordered. 2. Speech therapy to clear the patient prior to advancement of diet. 3. Cautious use of opiate pain medications. 4. Stop continuous IV fluids. 5. Maintain aspiration precautions. 6. Wean supplemental oxygen to maintain saturations at or above 90%. 7. Consider palliative care consultation for goals of care discussion. IMPRESSIONS: 1. Sepsis Related to acute cholecystitis status post cholecystostomy tube +/- aspiration PNA. Continue antimicrobials as indicated, pending culture results. The patient is otherwise hemodynamically stable at the present time. 2. Acute hypoxemic respiratory failure Concern for underlying pneumonia with high degree of concern for aspiration. Speech therapy is following to assist with decisions regarding dietary advancement, given his history of recurrent aspiration. Continue to wean supplemental oxygen to maintain saturations at or above 90%. The patient should remain n.p.o. for now. Continue antimicrobials. 3. Atrial fibrillation with RVR Resume Lopressor if the patient's diet is able to be advanced. Otherwise, consider initiation of amiodarone. 4. History of chronic kidney disease/diabetes mellitus/history of CVA/BPH Complicates care, management, recovery and prognosis. Continue supportive measures as noted above. PT/OT to work with the patient. This note was generated with SnapOne dictation software. It may contain incorrect words, spelling, and punctuation that were not noted in checking the note before signing. Subjective Subjective The patient was seen and examined at the bedside this morning. Events from the last 24 hours have been reviewed. The patient is currently afebrile, hemodynamically stable and maintaining appropriate oxygen saturations on 2 L/min via nasal cannula. The patient is documented to be overall net +10.7 L for the hospitalization. White blood cell count is mildly elevated at 12,000. Hemoglobin and platelet count are stable. The patient appears quite tired and intermittently confused this morning. His is present at the bedside. I did attempt to engage them both in a goals of care discussion, but neither were willing to engage in a detailed conversation. There is concern by speech therapy that the patient is still possibly aspirating, but he is declining any further speech therapy testing. Objective Data Objective Data The patient's most recent lab work, culture data and imaging studies have all been personally reviewed. 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 Vital Signs: Vital Signs Temp Pulse Resp BP Pulse Ox O2 Del Method O2 Flow Rate 98.1 F 121 H 23 H 131/86 H 95 Nasal Cannula 2 10/30/24 06:00 10/30/24 07:00 10/30/24 07:00 10/30/24 07:00 10/30/24 07:00 10/30/24 07:00 10/30/24 07:00 Oxygen Flow Rate (L/min) 2 Oxygen Delivery Method Nasal Cannula Weight: 219 lb 12.814 oz Body Mass Index (BMI) 29.7 Intake & Output: Intake and Output for Last 24 Hours 10/28/24 10/29/24 10/30/24 23:59 23:59 23:59 Intake Total 3646.34 / 3646.34 3870 / 3870 50 / 50 Output Total 760 / 760 995 / 1185 440 / 440 Balance 2886.34 / 2886.34 2875 / 2685 -390 / -390 Lab / Micro Data Attestation: I reviewed the patient's lab results. 10/30/24 09:40 10/29/24 03:07 Labs: Laboratory Results - last 24 hr 10/29/24 08:30: PT 21.7 H, INR 1.9, APTT 48.5 H 10/29/24 12:00: POC Glucose 106 10/29/24 17:19: POC Glucose 114 H 10/29/24 23:59: POC Glucose 122 H 10/29/24 : Fluid Source Cancelled, Fluid Color Cancelled, Fluid Appearance Cancelled, Fluid WBC Cancelled, Fluid RBC Cancelled, Fluid Tot Cell Count Cancelled, Fld Polynuclear WBCs # Cancelled, Fld Polynuclear WBCs % Cancelled, Fluid Mononuclear WBCs Cancelled, Fld Mononuclear WBCs % Cancelled, Fluid Neutrophils Cancelled, Fluid Lymphocytes Cancelled, Fluid Monocytes Cancelled, Fluid Plasma Cells Cancelled, Fluid Macrophages Cancelled, Fld Mesothelial Cells Cancelled, Fluid Other Cells Cancelled, Fl Pathologist Comment Cancelled, Fluid Comment 2 Cancelled 10/30/24 05:36: POC Glucose 108 H Micro: Microbiology 10/26/24 15:55 Blood Culture (Wb) - Arm Right Blood Culture - Preliminary No growth in 48 hours. 10/26/24 15:55 Blood Culture (Wb) - Arm Left Blood Culture - Preliminary No growth in 48 hours. 10/29/24 Unknown Fluid - Gallbladder Gram Stain - Final 10/27/24 09:24 Mucosa - Nasopharyngeal Coronavirus COVID-19 PCR - Final 10/27/24 01:25 Nasal Secretion MRSA (PCR) - Final 10/27/24 00:52 Mucosa - Nasopharyngeal Respiratory Panel (PCR) - Final 10/27/24 02:25 Urine, Random Legionella Antigen - Final 10/27/24 02:25 Urine, Random Streptococcus pneumoniae Antigen (M - Final Radiography Diagnostic Testing: Radiology Impression Biopsy CT 10/29/24 05:55 IMPRESSION: Successful drainage of the gallbladder, with drain left in place. Laboratory results pending. Reading Location: [place] [address] Physical Exam Const Constitutional Narrative: The patient is ill and fatigued in appearance. HEENT normocephalic and head/scalp atraumatic HEENT Narrative: Dry mucous membranes Eyes PERRL, EOMs intact bilaterally and conjunctivae normal Neck supple General: trachea midline Chest inspection of chest normal Resp Effort and Inspection: tachypneic Auscultation: rhonchi Cardio S1 normal heart sound and S2 normal heart sound Rate: tachycardic Rhythm: abnormal rhythm GI soft to palpation GI Narrative: Lauryn tube in place Extremity General Extremity: edema; Negative for clubbing Neuro CN's II-XII intact bilaterally and no focal motor deficits Psych Mood & Affect: flat affect Charges/Coding Visit Charges Inpatient E&M: 07394 [facility] Hosp L2
[2024-10-30] MEDS: Pantoprazole Sodium 40 MG in 0.9% Normal Saline (100mL MB+) 100 ML 330 MG IV ×2 (08:06→20:37)
[2024-10-30] MEDS: Azithromycin 500 MG in 0.9% Normal Saline (250mL Bag) 250 ML 255 MG IV (08:06)
--- NOTE | 2024-10-30 08:45 | PN.HOSP_ITS ---
Reason for Visit Chief Complaint: Abdominal pain, N/V. Objective Data Objective Data Vital Signs: Vital Signs Temp Pulse Resp BP Pulse Ox O2 Del Method O2 Flow Rate 98.1 F 130 H 20 H 141/82 H 91 Nasal Cannula 2 10/30/24 08:00 10/30/24 08:00 10/30/24 08:00 10/30/24 08:00 10/30/24 08:00 10/30/24 08:00 10/30/24 08:00 Oxygen Flow Rate (L/min) 2 Oxygen Delivery Method Nasal Cannula Weight: 219 lb 12.814 oz Body Mass Index (BMI) 29.7 Intake & Output: Intake and Output for Last 24 Hours 10/28/24 10/29/24 10/30/24 23:59 23:59 23:59 Intake Total 3646.34 / 3646.34 3870 / 3870 150 / 150 Output Total 760 / 760 995 / 1185 570 / 570 Balance 2886.34 / 2886.34 2875 / 2685 -420 / -420 Lab / Micro Data 10/29/24 03:07 10/29/24 03:07 Labs: Laboratory Results - last 24 hr 10/29/24 08:30: PT 21.7 H, INR 1.9, APTT 48.5 H 10/29/24 12:00: POC Glucose 106 10/29/24 17:19: POC Glucose 114 H 10/29/24 23:59: POC Glucose 122 H 10/29/24 : Fluid Source Cancelled, Fluid Color Cancelled, Fluid Appearance Cancelled, Fluid WBC Cancelled, Fluid RBC Cancelled, Fluid Tot Cell Count Cancelled, Fld Polynuclear WBCs # Cancelled, Fld Polynuclear WBCs % Cancelled, Fluid Mononuclear WBCs Cancelled, Fld Mononuclear WBCs % Cancelled, Fluid Neutrophils Cancelled, Fluid Lymphocytes Cancelled, Fluid Monocytes Cancelled, Fluid Plasma Cells Cancelled, Fluid Macrophages Cancelled, Fld Mesothelial Cells Cancelled, Fluid Other Cells Cancelled, Fl Pathologist Comment Cancelled, Fluid Comment 2 Cancelled 10/30/24 05:36: POC Glucose 108 H Micro: Microbiology 10/29/24 Unknown Fluid - Gallbladder Gram Stain - Final 10/29/24 Unknown Fluid - Gallbladder Body Fluid Culture - Preliminary 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 10/26/24 15:55 Blood Culture (Wb) - Arm Left Blood Culture - Preliminary No growth in 48 hours. 10/27/24 09:24 Mucosa - Nasopharyngeal Coronavirus COVID-19 PCR - Final 10/27/24 01:25 Nasal Secretion MRSA (PCR) - Final 10/27/24 00:52 Mucosa - Nasopharyngeal Respiratory Panel (PCR) - Final 10/27/24 02:25 Urine, Random Legionella Antigen - Final 10/27/24 02:25 Urine, Random Streptococcus pneumoniae Antigen (M - Final Radiography Diagnostic Testing: Radiology Impression Biopsy CT 10/29/24 05:55 IMPRESSION: Successful drainage of the gallbladder, with drain left in place. Laboratory results pending. Reading Location: [place] [id number] Physical Exam Narrative Seen and examined No acute change patient asking for water to drink. NPO. Had cholecystostomy tube yesterday. Shortness of breath, coarse breathing from upper respiratory secretions, not able to cough out. 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 He also mildly confused. near the bedside. A-fib, heart rate 130 per Physical exam General: Awake, confused with time. HEENT: Atraumatic, PERRLA, EOMI, Normocephalic. Oral: No Gingival or Mucosal Lesions/ Ulcerations Neck: Supple, No JVD, Negative Carotid Bruits Chest wall/Lungs: Air entry diminished in bilateral lung bases. Bilateral coarse crepitation right more than left Cardiovascular: irregular rate and rhythm, A-fib RVR no M/G/R Abdomen: Bowel Sounds sluggish, Soft, tenderness present on right upper quadrant, abdomen distended : Deep luana-colored. Blood and clots. No renal angle tenderness. No suprapubic tenderness. Extremities: No edema, Capillary Refill Less than 3 Seconds Skin: No rashes, No breakdown Musculoskeletal: No Tenderness to Palpation of Joints or Extremities. Chronic bony scar on bilateral lower legs. Neurological: Cranial nerves II-XII grossly intact, DTR 2+/4. No acute focal neurological deficit. Psych/Mental Status: Flat affect, retrograde amnesia Assessment & Plan Assessment/Plan (1) Sepsis: (2) Acute cholecystitis: PLAN: Plan The patient is an 89 y/o M #1. Sepsis, probably acute cholecystitis with cholelithiasis/bilateral pneumonia: Patient had tachycardia, tachypnea, hypoxic lactic acidosis and leukocytosis. Blood pressure still maintained. Patient on sepsis protocol, broad-spectrum IV antibiotic as mentioned in H&P. Sepsis note reviewed in H&P. Surgeon is being consulted. [employer] consulted. Urinary antigens, respiratory panel and MRSA nasal screen are negative. Liver chemistry shows normal transaminases alkaline phosphatase but total bilirubin 1.36 mildly elevated 10/28:No fever. Leukocytosis. With multiple comorbidities, there is high risk for cholecystectomy for acute cholecystitis with cholelithiasis. Agreed with the surgeon, for recommendation of percutaneous cholecystostomy tube and maybe later cholecystectomy and patient is physically more stronger. Patient currently has questionable pneumonia with a right-sided rib fracture after fall about a month ago. Dyspnea at rest. 10/29: Patient cholecystostomy tube placed. Leukocytosis improving. 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 Continue IV Zosyn. Vancomycin discontinued. MRSA nasal screen negative. #2. 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 Patient also had fall about a month ago with poor respiratory excursion. Chest CT initially reviewed and shows RML nodular opacity measuring 1.9 x 2.5 cm, interlobular septal and peribronchial interstitial thickening bilaterally and dependent opacity in bilateral lung bases. MRSA nasal screen, respiratory panel, urinary antigen and COVID PCR are negative. Blood culture pending. 10/28: URI mucous plugging. Mucomyst inhalation added. On bronchodilator and guaifenesin. 10/29: Patient still congested with upper airway mucus. 10/30: Speech therapist following. Still NPO. #3. Recent mechanical fall on anticoagulant therapy: Patient per report from fell to the right side and not surprisingly on CT imaging demonstrated a nonacute right anterior lateral 6th through 9th rib fractures as well as old lateral left 10th rib fracture, holding anticoagulant therapy as noted, PT/OT/case management consulted for discharge planning. #4. PAF with RVR: Likely secondary to his acute illness #1, improved rate in the ED with ED IV labetalol and lopressor, will continue metoprolol as able, holding Eliquis given surgical intervention needs. Most recently noted echocardiogram 10/01/2023 with EF 70%, mildly enlarged LA, trivial MVI with repeat echo requested. 10/28: Heart rate is controlled 10/29: Heart rate variable, 110-136 point respiratory 22 probably related to acute cholecystitis. On metoprolol oral scheduled and IV as needed. 10/30: Heart rate increased. Patient on IV metoprolol as needed. Probably from respiratory causes #5. Chronic Kidney Disease Stage IIIa: Admission BUN/Cr 20/1.27, GFR 54, baseline renal function primarily more recently noted 1.2-1.6, most recently 10/01/2023 which is unfortunately remote noted to be 1.47, repeat CMP in a.m. to further elucidate what patient's level is currently. 10/28: BUN/creatinine 29/1.63. Creatinine went up from 1.27-1.63. Abdominal x- ray ordered to look for bowel distention probably third volume sequestration. 11/10: Creatinine better 1.46. Sodium and potassium 140 and 4.2 respectively. AG 10 Diabetes mellitus type II: Hold oral home regimen, n.p.o. status given presentation as noted, maintain on every 6 hours accu checks w/ ISS. NPO. 10/28: Glucose is 111. 10/29: A1c 6.3%. Glucose 173. #9. Hypertension: BP 150/100 #10. Hyperlipidemia: Patient is n.p.o.. Will need necessary medications #11. Hx CVA w/ associated memory impairment: Hold oral metoprolol, IV metoprolol as needed #12. Former tobacco use: Encouraged continued tobacco cessation. #13. BPH: From records noted status post TURP status, not on any chronic regimen, monitor for retention. #14. GERD: maintain on IV PPI. #15. DVT prophylaxis: SCDs, holding Eliquis given need for intervention. #16. CODE status: Patient HCPOA is his who is present and living will is currently in place. Discussed CODE status at length including difference between FULL code, DNR-CCA and DNR-CC status. 10/30: Conversation regarding advanced planning/palliative care discussed with the patient's . Patient having difficulty understanding and processing the facts. Her daughter is speech pathologist. Palliative care consult to mediate the discussion Charges/Coding Visit Charges Inpatient E&M: 69245 Subs Hosp L3
--- NOTE | 2024-10-30 09:17 | CASEMGMT ---
Addendum entered by Maurisio Kirk 10/31/24 11:11: Airam from Palliative reports that there is a family meeting scheduled for 1500 for further discussions. Original Note: Per ICU rounds, the hospitalist and senior group manager are requesting inpt Palliative care consult regarding ST evaluation. [facility] inpt Palliative Care [employer] PROFESS[employer] notified. CM to continue to follow for needs.
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
[2024-10-30 09:47] LABS: Hematocrit 37.4 % (40-54); Hemoglobin 12.4 g/dL (13.0-16.5); Immature Granulocytes Count 0.130 X10^3/uL (0.0-0.0); Mean Corp Hgb Conc 33.2 g/dL (32-36); Mean Corpuscular Volume 89.3 fL (80-94); Mean Platelet Vol. 10.0 fl (6.2-12.0); NRBC Flagged by Analyzer 0 % (0-5); Platelet Count 166 K/mm3 (150-450); RBC Distribution Width CV 15.8 % (11.6-14.6); RBC Distribution Width SD 51.3 fl (35.1-43.9); Red Blood Count 4.19 M/mm3 (4.6-6.2); White Blood Count 11.8 K/mm3 (4.4-11.0)
[2024-10-30] MEDS: 0.9% Saline Lock 10 ML Syringe IV ×2 (12:13→18:34)
--- NOTE | 2024-10-30 13:55 | NURSING ---
transferred to radiology for MBS at this time
[2024-10-30 15:08] LABS: AST(SGOT) 166 U/L (<=37); Alanine Aminotransfer ALT/SGPT 81 U/L (<=46); Albumin, Serum 2.9 g/dL (3.4-4.8); Alkaline Phosphatase 136 U/L (40-129); Anion Gap 10 (5-15); BUN 26 mg/dL (4-19); BUN/Creat Ratio 20.1 RATIO (10-20); Calcium,Total 9.2 mg/dL (7.6-11.0); Carbon Dioxide 22.2 mmol/L (21.0-32.0); Chloride 111 mmol/L (98-108); Estimated Creatinine Clearance 47.66 ml/min (50-250); Globulin 2.6 g/dL (2.2-4.2); Glucose 126 mg/dL (70-99); Potassium 3.9 mmol/L (3.3-5.1)
--- NOTE | 2024-10-30 16:02 | SP.MBSS_ITS ---
Modified Barium Swallow Patient Information Study Date: 10/30/24 Study Time: 13:00 Direct Billable Minutes: 130 Total Minutes procedure & reportin Diagnosis: Sepsis, A41.9 Referring Physician: Goran Bowens Reason for Referral: Objectively assess swallow function, assess risk for aspiration, and determine recommendations for least restrictive diet textures and compensatory strategies to improve safety of swallow. Medical History: PMH: history of GERD, prior CVA with memory impairment, CKD stage III, type II diabetes, paroxysmal atrial fibrillation, hypertension, hyperlipidemia, histoplasmosis, and BPH s/p TURP. Pt presented to [facility] ED on 10/26/24 with acute right upper quadrant abdominal pain after eating clam chowder, associated with nausea, and a small bilious emesis. He denied fever but later developed chills; bowel function remained normal. He had a fall one week prior with right-sided bruising and possible rib fractures. In the ED, vitals were notable for transient tachycardia, tachypnea, hypoxia, and lactic acidosis with leukocytosis; imaging showed healing rib fractures, cardiomegaly with mild congestion, RML opacity, bilateral dependent opacities, and cholelithiasis with findings concerning for acute cholecystitis. RUQ ultrasound confirmed gallbladder distension with stones, sludge, wall thickening, and pericholecystic edema. He was treated with IV antibiotics, fluids, and supportive care; surgical and tail edger teams were consulted. Subsequent course was significant for sepsis likely from acute cholecystitis with possible pneumonia; due to high operative risk, percutaneous cholecystostomy was placed on 10/29 with improving leukocytosis. He also has questionable bilateral pneumonia. He was congested with mucus plugging, managed with Mucomyst, bronchodilators, and guaifenesin. ST consulted for swallowing difficulty. Pt NPO prior to ST evaluation via BSE on 10/29/2024. During eval uation, daughter, an SHOWER ROOM ATTENDANT, and provided additional PMH re: swallowing difficulty. 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 Family reports he self- manages diet and is aware of tolerated consistencies. Audible wet breath sounds were present prior to PO intake, though daughter states this is baseline. BSE recommended pt continue NPO w/ sips/chips and plan for re-evaluation 10/30/2024. Pt demonstrated continued coughing at bedside on 10/30/2024 w/ ice chips and water by tsp. SHOWER ROOM ATTENDANT did recommend this MBSS to further assess swallow function and aspirtion risk to determine LRD textures. Given hx of dysphagia and current PNA, this SHOWER ROOM ATTENDANT did not feel comfort w/ diet advancement w/o instrumental assessment of swallow function. After lengthy discussion w/ and daughter (via phone call), family agreeable to pt's participation in this MBSS. Current Diet Ordered: NPO, ok for sips/chips Dentition: Natural Teeth and Missing Teeth (upper molars ) Mental Status: Impaired (Acute confusion) Respiratory Status: Oxygenating on 2L/M nasal cannula Penetration-Aspiration Scale Penetration-Aspiration Scale: OBJECTIVE ASSESSMENT OF SWALLOW FUNCTION (QUANTITATIVE ? PER TRIAL): PENETRATION / ASPIRATION SCALE (LARSON): 1 = does not enter airway 2 = enters airway/above vocal folds/ejected 3 = enters airway/above vocal folds/not ejected 4 = enters airway/contacts vocal folds/ejected 5 = enters airway/contacts vocal folds/not ejected 6 = enters airway/below vocal folds/ejected 7 = enters airway/below vocal folds/not ejected despite effort 8 = enters airway/below vocal folds/no effort VIDEOFLOROSCOPIC SCALE SCORE (LARSON): Grade I = aspiration of material that has penetrated into the laryngeal vestibule, intact cough reflex Grade II = aspiration < 10 % of the bolus, intact cough reflex Grade III = aspiration of < 10 % of the bolus, reduced cough reflex or aspiration of > 10 % of the bolus, intact cough reflex Grade IV = aspiration of > 10 % of the bolus, reduced cough reflex Penetration-Aspiration Scale Score Thin Liquid via teaspoon: Result: 8= enters airway/below vocal folds/no effort Thin Liquid via teaspoon Chin tuck: Result: 2= enter airway/above vocal folds/ejected [place] Thick Liquid via teaspoon: Result: 2= enter airway/above vocal folds/ejected [place] Thick Liquid via teaspoon Trial 2: Result: 1= does not enter airway [place] Thick Liquid via small single sip: cup: Result: 3= enters airways/above vocal folds/not ejected Pudding via teaspoon: Result: 2= enter airway/above vocal folds/ejected Comment: Esophageal screen - Mild retention in the middle and lower esophagus. Pudding via teaspoon Trial 2: Result: 2= enter airway/above vocal folds/ejected Comment: Esophageal screen - Moderate retention in the middle and lower esophagus. [place] Thick Liquid via small single sip: cup Trial 2: Result: 1= does not enter airway Comment: Esophageal screen - Did not clear barium retention from previous trials. [place] thick Liquid via cup - A-P view: Comment: Barium retention in the middle and lower esophagus. Pudding via tsp - A-P view: Comment: Moderate pharyngeal retention w/ unilateral L sided weakness. Retention in the middle esophagus. [place] Thick Liquid via cup - A-P view Trial 2: Comment: Reflexive throat clearing, suspect laryngeal penetration. Liquid wash effectively cleared pharyngeal residue from previous trial; however, pt continued w/ moderate barium retention in the middle and lower esophagus. [place] Thick Liquid via teaspoon Trial 3: Result: 3= enters airways/above vocal folds/not ejected Thin Liquid via teaspoon Chin tuck Trial 2: Result: 1= does not enter airway Thin Liquid via teaspoon Chin tuck Trial 3: Result: 5= enters airways/contacts vocal folds/not ejected Comment: Cannot definitively rule out aspiration for this trial; however, SHOWER ROOM ATTENDANT suspects post prandial aspiration of residues in the laryngeal vestibule from earlier tri als (nectar liquids via tsp, trial 3). Unable to fully view the vocal folds during the swallow given chin tuck posture. [place] Thick Liquid via small single sip: cup Chin tuck: Result: 2= enter airway/above vocal folds/ejected 1/2 Cookie: Result: 1= does not enter airway Comment: Esophageal screen - Retention in the middle and lower esophagus. [place] Thick Liquid via teaspoon Trial 4: Result: 5= enters airways/contacts vocal folds/not ejected Thin Liquid via teaspoon Chin tuck Trial 4: Result: 2= enter airway/above vocal folds/ejected Thin Liquid via teaspoon Chin tuck Trial 5: Result: 3= enters airways/above vocal folds/not ejected [place] Thick Liquid via teaspoon: Result: 5= enters airways/contacts vocal folds/not ejected Oral Phase Labial Seal: Interlabial escape, no progression to anterior lip Tongue Control During Bolus Hold: Posterior escape of less than half of bolus Bolus Preparation/Mastication: Disorganized chewing/mashing with solid pieces of bolus unchewed (Small pieces of cookie appeared un-chewed) Bolus Transport/Lingual Motion: Slowed tongue motion Oral Residue: Residue collection on oral structures Pharyngeal Phase Initiation of Pharyngeal Swallow: Bolus head at posterior laryngeal surgace of epiglottis Soft Palate Elevation: Trace column of contrast/air between soft palate and pharyngeal wall Laryngeal Elevation: Partial superior movement thyroid cart/partial apprx aryt- epig petiole Anterior Hyoid Excursion: Partial anterior movement Epiglottic Movement: Partial inversion Laryngeal Vestibule Closure at Height of Swallow: Incomplete; narrow column of air/contrast in laryngeal vestibule Pharyngeal Stripping Wave: Present - diminished Pharyngoesophageal Segment Opening: Minimal distension and minimal duration; marked obstruction of flow Tongue Base Retraction: Wide column of contrast between tongue base & post. pharyngeal wall Pharyngeal Residue: Majority of contrast within or on pharyngeal structures Esophageal Phase Esophageal Clearance: Esophageal retention w/ retrograde flow through pharyngoesophageal seg (Retention in the UES w/ retrograde flow to the pharynx) Diagnosis/Impression Diagnosis: Mod oropharyngeal dysphagia R13.12; Pharyngoesophageal dysphagia R13.14 MBS Impressions: SHOWER ROOM ATTENDANT reviewed this MBSS w/ radiologist, Dr. Villagomez. No Zenker's diverticulum identified during the MBSS in lateral or A-P view; however, there is notable obstruction of barium through the UES likely due to both poor pharyngeal motility and presence of cricopharyngeal bar. Moderate-severe pharyn geal residue of pudding and cookie occurred as a result. The oral phase is primarily marked by... -Decreased bolus control w/ premature posterior loss of <1/2 of some thin liquid trials to the posterior surface of the epiglottis prior to swallow onset. -Slowed tongue motion for A-P transport. -Slowed mastication w/ small pieces of cookie appearing un-chewed. The pharyngeal phase is primarily marked by... -Decreased pharyngeal motility (weak on L side per A-P view) w/ poor UES opening/duration of opening resulting in retention of barium in the UES w/ retrograde flow to the pharynx. >50% of pudding and cookie boluses remained in the pharynx after the swallow. Liquid wash was most effective in clearing pharyngeal residues. -Decreased airway closure during the swallow due to decreased anterior hyoid excursion, laryngeal elevation, and epiglottic inversion. SILENT aspiration of first trial of thin liquids by tsp. Laryngeal penetration to the vocal folds of thin liquids via tsp, mildly thick liquids by tsp, and moderately thick liquids by tsp, which did not fully eject, placing pt at risk for post prandial aspiration. Given pt's aspiration risk w/ thin and thickened consistencies and family reporting pt hx of noncompliance w/ thickened liquid diet, will recommend the patient for thin liquids w/ strict precautions to decrease risk for aspiration (chin tuck, small bolus size). The esophageal phase is primarily marked by... -CP bar w/ retention of pudding and cookie in the UES w/ retrograde flow to the pharynx. -Retention of barium pudding and cookie in the middle and lower esophagus, which did not clear when provided liquid washes. Recommendations Diet: Soft and Bite Sized Textures and Thin Liquids Comment: Medications crushed in Frequent oral care Compensatory Strategies: Small Bites, Small Sips, Liquid by Teaspoon Only, Slow Rate, Chin Tuck (All Sips), Alternate bites/solids and sips/liquids (1:1 Ratio), Sitting upright and Remain sitting upright for 30 minutes after PO intake Supervision: Total Feed (Staff Supervision) Recommend Repeat Modified Barium Swallow: TBD Comment: If concern for worsening respiratory status or poor diet tolerance, would consider repeat MBSS. Need for Skilled Speech Therapy Services: Yes Comment: -Train the patient and family in strategies to decrease risk for aspiration and reflux aspiration. -Train the patient in oropharyngeal exercise program (lingual resistance, Veronica, Effortful, CTAR, Leia, Shaker if tolerated). -Ongoing assessment w/ diet tolerance. As mentation improves, would consider cup sips w/ use of chin tuck w/ SHOWER ROOM ATTENDANT. -Train patient and family in oral care routine to decrease risk for aspiration related illness. Education Completed: 1. Described result of evaluation., 4. Family/caregivers understand evaluation & agree w/ goals & tx plan. and 7. Pt requires further education on strategies & risks. Comment: GI consult declined by family due to hx of EGDs w/ dilations w/o notable improvement in swallowing. SHOWER ROOM ATTENDANT is not recommending tube feeding based on pt's aspiration risk given that tube feeding does not decrease risk for aspiration PNA. Family verbalized understanding. Status Active ST Patient: Active Contact Information [facility] Speech Therapy:: Moira Nelson M.A. [facility]SHOWER ROOM ATTENDANT Speech-Language Pathologist [facility] [address] [place] [address] [email or web address] [phone]
[2024-10-30] MEDS: Senna/Docusate Sodium 1 Tablet 2 TABLET PO (21:32)
[2024-10-30] MEDS: guaiFENesin 10 ML UDC (200MG/10ML) PO (21:36)
[2024-10-31] VITALS (26 sets, daily range): BP systolic 103–172; BP diastolic 77–124; PULSE 85–144; RESP 16–23; TEMP 36.5–37; O2SAT 92–100; BMI 29.2
[2024-10-31] MEDS: Diltiazem 125 MG in Dextrose 5%-Water (100mL Bag) 100 ML IV (01:00)
[2024-10-31] MEDS: Piperacil/Tazobactam 3.375 GM in 0.9% Normal Saline (50mL MB+) 50 ML IV (05:10)
[2024-10-31 06:57] LABS: Hematocrit 36.0 % (40-54); Hemoglobin 11.9 g/dL (13.0-16.5); Immature Granulocytes Count 0.140 X10^3/uL (0.0-0.0); Mean Corp Hgb Conc 33.1 g/dL (32-36); Mean Corpuscular Volume 88.5 fL (80-94); Mean Platelet Vol. 10.1 fl (6.2-12.0); NRBC Flagged by Analyzer 0 % (0-5); Platelet Count 179 K/mm3 (150-450); RBC Distribution Width CV 15.7 % (11.6-14.6); RBC Distribution Width SD 51.0 fl (35.1-43.9); Red Blood Count 4.07 M/mm3 (4.6-6.2); White Blood Count 11.4 K/mm3 (4.4-11.0)
[2024-10-31] MEDS: Budesonide Respules 0.5 MG/2 ML AMPUL.NEB. INHALATION ×2 (07:05→19:27)
[2024-10-31] MEDS: Ipratropium 0.5 MG/2.5 ML SOLUTION INHALATION ×2 (07:05→19:27)
[2024-10-31 07:12] LABS: AST(SGOT) 310 U/L (<=37); Alanine Aminotransfer ALT/SGPT 174 U/L (<=46); Albumin, Serum 2.7 g/dL (3.4-4.8); Alkaline Phosphatase 203 U/L (40-129); Anion Gap 8 (5-15); BUN 26 mg/dL (4-19); BUN/Creat Ratio 20.2 RATIO (10-20); Calcium,Total 9.1 mg/dL (7.6-11.0); Carbon Dioxide 23.3 mmol/L (21.0-32.0); Chloride 111 mmol/L (98-108); Estimated Creatinine Clearance 47.67 ml/min (50-250); Globulin 2.7 g/dL (2.2-4.2); Glucose 159 mg/dL (70-99); Potassium 3.6 mmol/L (3.3-5.1)
--- NOTE | 2024-10-31 07:31 | PN.HOSP_ITS ---
Reason for Visit Chief Complaint: Abdominal pain, N/V. Objective Data Objective Data Vital Signs: Vital Signs Temp Pulse Resp BP Pulse Ox O2 Del Method O2 Flow Rate 98.3 F 85 16 134/97 H 96 Nasal Cannula 1 10/31/24 04:00 10/31/24 07:06 10/31/24 07:06 10/31/24 07:00 10/31/24 07:06 10/31/24 07:06 10/31/24 07:06 Oxygen Flow Rate (L/min) 1 Oxygen Delivery Method Nasal Cannula Weight: 216 lb 4.375 oz Body Mass Index (BMI) 29.2 Intake & Output: Intake and Output for Last 24 Hours 10/29/24 10/30/24 10/31/24 23:59 23:59 23:59 Intake Total 3870 / 3870 1500 / 1500 127.5 / 127.5 Output Total 995 / 1185 1120 / 1120 250 / 250 Balance 2875 / 2685 380 / 380 -122.5 / -122.5 Lab / Micro Data 10/31/24 06:47 10/31/24 06:47 Labs: Laboratory Results - last 24 hr 10/30/24 09:40: WBC 11.8 H, RBC 4.19 L, Hgb 12.4 L, Hct 37.4 L, MCV 89.3, MCH 29.6, MCHC 33.2, RDW Std Deviation 51.3 H, RDW Coeff of Pollo 15.8 H, Plt Count 166, MPV 10.0, Immature Gran % (Auto) 1.100 H, Neut % (Auto) 85.4 H, Lymph % (Auto) 5.6 L, Crawford % (Auto) 6.4, Eos % (Auto) 1.1, Baso % (Auto) 0.4, Absolute Neuts (auto) 10.1 H, Absolute Lymphs (auto) 0.66 L, Nucleated RBC % 0, Sodium 142, Potassium 3.9, Chloride 111 H, Carbon Dioxide 22.2, Anion Gap 10, BUN 26 H, Creatinine 1.31 H, Estim Creat Clear Calc 47.66 L, Est GFR (MDRD) Non-Af 52 L, B UN/Creatinine Ratio 20.1 H, Glucose 126 H, Calcium 9.2, Total Bilirubin 1.12, A ST 166 H, ALT 81 H, Alkaline Phosphatase 136 H, Total Protein 5.5 L, Albumin 2.9 L, Globulin 2.6, Albumin/Globulin Ratio 1.1 10/30/24 11:41: POC Glucose 92 10/30/24 16:40: POC Glucose 94 10/30/24 22:26: POC Glucose 109 H 10/30/24 23:57: POC Glucose 107 H 10/31/24 06:34: POC Glucose 144 H 10/31/24 06:47: WBC 11.4 H, RBC 4.07 L, Hgb 11.9 L, Hct 36.0 L, MCV 88.5, MCH 29.2, MCHC 33.1, RDW Std Deviation 51.0 H, RDW Coeff of Pollo 15.7 H, Plt Count 179, MPV 10.1, Immature Gran % (Auto) 1.200 H, Neut % (Auto) 83.5 H, Lymph % (Auto) 6.4 L, Crawford % (Auto) 6.2, Eos % (Auto) 2.0, Baso % (Auto) 0.7, Absolute Neuts (auto) 9.5 H, Absolute Lymphs (auto) 0.73 L, Nucleated RBC % 0, Sodium 142, Potassium 3.6, Chloride 111 H, Carbon Dioxide 23.3, Anion Gap 8, BUN 26 H, Creatinine 1.30 H, Estim Creat Clear Calc 47.67 L, Est GFR (MDRD) Non-Af 53 L, B UN/Creatinine Ratio 20.2 H, Glucose 159 H, Calcium 9.1, Total Bilirubin 1.31 H, AST 310 H, ALT 174 H, Alkaline Phosphatase 203 H, Total Protein 5.4 L, Albumin 2.7 L, Globulin 2.7, Albumin/Globulin Ratio 1.0 Micro: Microbiology 10/29/24 Unknown Fluid - Gallbladder Gram Stain - Final 10/29/24 Unknown Fluid - Gallbladder Body Fluid Culture - Preliminary GNR lactose acquisition lead GNR lactose acquisition lead#2 10/26/24 15:55 Blood Culture (Wb) - Arm Right Blood Culture - Preliminary No growth in 48 hours. 10/26/24 15:55 Blood Culture (Wb) - Arm Left Blood Culture - Preliminary No growth in 48 hours. 10/27/24 09:24 Mucosa - Nasopharyngeal Coronavirus COVID-19 PCR - Final 10/27/24 01:25 Nasal Secretion MRSA (PCR) - Final 10/27/24 00:52 Mucosa - Nasopharyngeal Respiratory Panel (PCR) - Final 10/27/24 02:25 Urine, Random Legionella Antigen - Final 10/27/24 02:25 Urine, Random Streptococcus pneumoniae Antigen (M - Final Rhythm Strip Rhythm Strip: A-fib Rate: 140 Social Homelessness:: Sheltered Physical Exam Narrative Seen and examined Upper respiratory transmitted sounds/coarse breathing better. Patient able to cough out phlegm. Has Zenker's diverticulum went into A-fib RVR last night and was started on Cardizem currently on 15 mg/h. No BM. No acute change patient asking for water to drink. NPO. Had cholecystostomy tube yesterday. Physical exam General: Awake, oriented to time place. HEENT: Atraumatic, PERRLA, EOMI, Normocephalic. Oral: No Gingival or Mucosal Lesions/ Ulcerations Neck: Supple, No JVD, Negative Carotid Bruits Chest wall/Lungs: Air entry diminished in bilateral lung bases. Coarse breathing/rhonchi better Cardiovascular: irregular rate and rhythm, A-fib RVR no M/G/R Abdomen: Bowel Sounds sluggish, Soft, abdominal distention. PERI drain present. No acute tenderness : Bloody stain, external urethral meatus around catheter. No renal angle tenderness. No suprapubic tenderness. Extremities: No edema, Capillary Refill Less than 3 Seconds Skin: No rashes, No breakdown Musculoskeletal: No Tenderness to Palpation of Joints or Extremities. Chronic bony scar on bilateral lower legs. Neurological: Cranial nerves II-XII grossly intact, DTR 2+/4. No acute focal neurological deficit. Psych/Mental Status: Flat affect, retrograde amnesia Assessment & Plan Assessment/Plan (1) Sepsis: (2) Acute cholecystitis: PLAN: Plan The patient is an 89 y/o M #1. Sepsis, probably acute cholecystitis with cholelithiasis/bilateral pneumonia: Patient had tachycardia, tachypnea, hypoxic lactic acidosis and leukocytosis. Blood pressure still maintained. Patient on sepsis protocol, broad-spectrum IV antibiotic as mentioned in H&P. Sepsis note reviewed in H&P. Surgeon is being consulted. Granular Operator consulted. Urinary antigens, respiratory panel and MRSA nasal screen are negative. Liver chemistry shows normal transaminases alkaline phosphatase but total bilirubin 1.36 mildly elevated 9/7:No fever. Leukocytosis. With multiple comorbidities, there is high risk for cholecystectomy for acute cholecystitis with cholelithiasis. Agreed with the surgeon, for recommendation of percutaneous cholecystostomy tube and maybe later cholecystectomy and patient is physically more stronger. Patient currently has questionable pneumonia with a right-sided rib fracture after fall about a month ago. Dyspnea at rest. 10/29: Patient cholecystostomy tube placed. Leukocytosis improving. Cholecystostomy fluid sent for culture 10/30: Cholecystostomy tube fluid growing GNR lactose acquisition lead. Continue IV Zosyn. Vancomycin discontinued. MRSA nasal screen negative. 10/31: Cholecystostomy tube growing E. coli and Klebsiella. IV antibiotic narrowed down to Unasyn to cover gram-negative and anaerobes with suspicion of aspiration pneumonia. ID consulted further opinion regarding choice of antibiotic and duration. #2. 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 Patient also had fall about a month ago with poor respiratory excursion. Chest CT initially reviewed and shows RML nodular opacity measuring 1.9 x 2.5 cm, interlobular septal and peribronchial interstitial thickening bilaterally and dependent opacity in bilateral lung bases. MRSA nasal screen, respiratory panel, urinary antigen and COVID PCR are negative. Blood culture pending. 10/28: URI mucous plugging. Mucomyst inhalation added. On bronchodilator and guaifenesin. 10/29: Patient still congested with upper airway mucus. 10/30: Speech therapist following. Still NPO. 10/31: Patient was supervised feed. #3. Recent mechanical fall on anticoagulant therapy: Patient per report from fell to the right side and not surprisingly on CT imaging demonstrated a nonacute right anterior lateral 6th through 9th rib fractures as well as old lateral left 10th rib fracture, holding anticoagulant therapy as noted, PT/OT/case management consulted for discharge planning. #4. PAF with RVR: Likely secondary to his acute illness #1, improved rate in the ED with ED IV labetalol and lopressor, will continue metoprolol as able, holding Eliquis given surgical intervention needs. Most recently noted echocardiogram 10/01/2023 with EF 70%, mildly enlarged LA, trivial MVI with repeat echo requested. 10/28: Heart rate is controlled 10/29: Heart rate variable, 110-136 point respiratory 22 probably related to acute cholecystitis. On metoprolol oral scheduled and IV as needed. 10/30: Heart rate increased. Patient on IV metoprolol as needed. Probably from respiratory causes 10/31: A-fib RVR, on Cardizem drip 15 mg/h. Doll Surgeon consulted. Patient put back on IV heparin drip. Was on Eliquis which was held for cholecystostomy tube. #5. Chronic Kidney Disease Stage IIIa: Admission BUN/Cr 20/1.27, GFR 54, baseline renal function primarily more recently noted 1.2-1.6, most recently 10/01/2023 which is unfortunately remote noted to be 1.47, repeat CMP in a.m. to further elucidate what patient's level is currently. 10/28: BUN/creatinine 29/1.63. Creatinine went up from 1.27-1.63. Abdominal x- ray ordered to look for bowel distention probably third volume sequestration. 10/30: Creatinine better 1.46. Sodium and potassium 140 and 4.2 respectively. AG 10 10/31: Creatinine looks better.Urine output documented 950 mL, drainage about 130 mL. Bladder distended on catheter side. Discussed with the nursing for perineal hygiene and cleaning Diabetes mellitus type II: Hold oral home regimen, n.p.o. status given presentation as noted, maintain on every 6 hours accu checks w/ ISS. NPO. 10/28: Glucose is 111. 10/29: A1c 6.3%. Glucose 173. #9. Hypertension: BP 150/100 #10. Hyperlipidemia: Patient is n.p.o.. Will need necessary medications #11. Hx CVA w/ associated memory impairment: Hold oral metoprolol, IV metoprolol as needed #12. Former tobacco use: Encouraged continued tobacco cessation. #13. BPH: From records noted status post TURP status, not on any chronic regimen, monitor for retention. #14. GERD: maintain on IV PPI. #15. DVT prophylaxis: SCDs, holding Eliquis given need for intervention. #16. CODE status: Patient FRANKLIN is his who is present and living will is currently in place. Discussed CODE status at length including difference between FULL code, DNR-CCA and DNR-CC status. 10/30: Conversation regarding advanced planning/palliative care discussed with the patient's . Patient having difficulty understanding and processing the facts. Her daughter is speech pathologist. 10/31: Palliative consult appreciated. Family decided for continue full code and aggressive management. Charges/Coding Visit Charges Inpatient E&M: 02105 Subs Hosp L3
[2024-10-31] MEDS: Senna/Docusate Sodium 1 Tablet 2 TABLET PO ×2 (07:48→21:00)
[2024-10-31] MEDS: Lactobacillis Acidophilus 1 CAP PO (07:48)
[2024-10-31] MEDS: guaiFENesin 10 ML UDC (200MG/10ML) PO ×3 (07:57→21:02)
[2024-10-31] MEDS: Pantoprazole Sodium 40 MG in 0.9% Normal Saline (100mL MB+) 100 ML 330 MG IV ×2 (07:59→21:02)
--- NOTE | 2024-10-31 08:23 | PCM.PN.SRG ---
Subjective Subjective Patient evaluated resting comfortably in bed. He denies abdominal pain this morning. Objective Data Objective Data Vital Signs: Vital Signs Temp Pulse Resp BP Pulse Ox O2 Del Method O2 Flow Rate 98.3 F 99 16 144/93 H 96 Nasal Cannula 2 10/31/24 04:00 10/31/24 07:48 10/31/24 07:06 10/31/24 07:48 10/31/24 07:06 10/31/24 08:00 10/31/24 08:00 Oxygen Flow Rate (L/min) 2 Oxygen Delivery Method Nasal Cannula Weight: 216 lb 4.375 oz Body Mass Index (BMI) 29.2 Intake & Output: Intake and Output for Last 24 Hours 10/29/24 10/30/24 10/31/24 23:59 23:59 23:59 Intake Total 3870 / 3870 1500 / 1500 127.5 / 127.5 Output Total 995 / 1185 1120 / 1120 250 / 250 Balance 2875 / 2685 380 / 380 -122.5 / -122.5 Lab / Micro Data 10/31/24 06:47 10/31/24 06:47 Labs: Laboratory Results - last 24 hr 10/30/24 09:40: WBC 11.8 H, RBC 4.19 L, Hgb 12.4 L, Hct 37.4 L, MCV 89.3, MCH 29.6, MCHC 33.2, RDW Std Deviation 51.3 H, RDW Coeff of Pollo 15.8 H, Plt Count 166, MPV 10.0, Immature Gran % (Auto) 1.100 H, Neut % (Auto) 85.4 H, Lymph % (Auto) 5.6 L, [place] % (Auto) 6.4, Eos % (Auto) 1.1, Baso % (Auto) 0.4, Absolute Neuts (auto) 10.1 H, Absolute Lymphs (auto) 0.66 L, Nucleated RBC % 0, Sodium 142, Potassium 3.9, Chloride 111 H, Carbon Dioxide 22.2, Anion Gap 10, BUN 26 H, Creatinine 1.31 H, Estim Creat Clear Calc 47.66 L, Est GFR (MDRD) Non-Af 52 L, BUN/Creatinine Ratio 20.1 H, Glucose 126 H, Calcium 9.2, Total Bilirubin 1.12, AST 166 H, ALT 81 H, Alkaline Phosphatase 136 H, Total Protein 5.5 L, Albumin 2.9 L, Globulin 2.6, Albumin/Globulin Ratio 1.1 10/30/24 11:41: POC Glucose 92 10/30/24 16:40: POC Glucose 94 10/30/24 22:26: POC Glucose 109 H 10/30/24 23:57: POC Glucose 107 H 10/31/24 06:34: POC Glucose 144 H 10/31/24 06:47: WBC 11.4 H, RBC 4.07 L, Hgb 11.9 L, Hct 36.0 L, MCV 88.5, MCH 29.2, MCHC 33.1, RDW Std Deviation 51.0 H, RDW Coeff of Pollo 15.7 H, Plt Count 179, MPV 10.1, Immature Gran % (Auto) 1.200 H, Neut % (Auto) 83.5 H, Lymph % (Auto) 6.4 L, [place] % (Auto) 6.2, Eos % (Auto) 2.0, Baso % (Auto) 0.7, Absolute Neuts (auto) 9.5 H, Absolute Lymphs (auto) 0.73 L, Nucleated RBC % 0, Sodium 142, Potassium 3.6, Chloride 111 H, Carbon Dioxide 23.3, Anion Gap 8, BUN 26 H, Creatinine 1.30 H, Estim Creat Clear Calc 47.67 L, Est GFR (MDRD) Non-Af 53 L, BUN/Creatinine Ratio 20.2 H, Glucose 159 H, Calcium 9.1, Total Bilirubin 1.31 H, AST 310 H, ALT 174 H, Alkaline Phosphatase 203 H, Total Protein 5.4 L, Albumin 2.7 L, Globulin 2.7, Albumin/Globulin Ratio 1.0 Micro: Microbiology 10/29/24 Unknown Fluid - Gallbladder Gram Stain - Final 10/29/24 Unknown Fluid - Gallbladder Body Fluid Culture - Final Escherichia coli Klebsiella oxytoca 10/26/24 15:55 Blood Culture (Wb) - Arm Right Blood Culture - Preliminary No growth in 48 hours. 10/26/24 15:55 Blood Culture (Wb) - Arm Left Blood Culture - Preliminary No growth in 48 hours. 10/27/24 09:24 Mucosa - Nasopharyngeal Coronavirus COVID-19 PCR - Final 10/27/24 01:25 Nasal Secretion MRSA (PCR) - Final 10/27/24 00:52 Mucosa - Nasopharyngeal Respiratory Panel (PCR) - Final 10/27/24 02:25 Urine, Random Legionella Antigen - Final 10/27/24 02:25 Urine, Random Streptococcus pneumoniae Antigen (M - Final Rhythm Strip Rhythm Strip: A-fib Rate: 140 Social Homelessness:: Sheltered Physical Exam GI GI Narrative: Abdomen- slightly distended. PERI drain intact and draining bilious/bloody fluid. Drain sponge appears intact. Non-tender with palpation Assessment & Plan Assessment/Plan (1) Acute cholecystitis: (2) Sepsis: PLAN: Plan I am following this patient in conjunction with Dr. Cavazos. He will independently evaluate this patient. Labs reviewed. WBC decreasing. Liver enzymes increasing. Cytology from drain placement is growing E. Coli and Klebsiella oxytoca Patient changed from Zosyn to Ceftriaxone Anaerobic culture pending Continue to attempt to strip the drain multiple times per day to avoid clots within the tubing No surgical intervention recommended at this time as patient is too high risk for a cholecystectomy currently We will continue to monitor this patient Charges/Coding Visit Charges Inpatient E&M: 85734 Subs Hosp L2
--- NOTE | 2024-10-31 09:04 | PCM.CONS.C ---
Assessment & Plan Assessment/Plan (1) Chronic a-fib: PLAN: Patient is now starting to take p.o.'s and is on metoprolol 50 mg twice daily. Blood pressures are mildly elevated. He does continue on IV Cardizem. The atrial fibrillation has been documented to be chronic since 2019. He does need to be anticoagulated for stroke prevention and would recommend reinstitution of short acting anticoagulant therapy until he can be transition back to Eliquis. The appropriate dose of Eliquis would be 5 mg twice daily given his creatinine of 1.3 and his weight over 60 kg. Would recommend increasing the metoprolol to 50 mg 3 times daily of tartrate and then titrating and weaning the diltiazem drip. If this is unsuccessful in controlling his rate consideration may be given of using amiodarone would only use this short-term. His rate and atrial fibs been well-controlled in the home environment prior to this infectious process with a combination of metoprolol to tartrate 50 mg twice daily and Eliquis 5 mg twice daily. (2) Acute cholecystitis: PLAN: Patient's status post percutaneous drainage. Further treatment per the primary service and surgical team. PLAN: Plan 1. Recommend increasing metoprolol to tartrate to 50 mg 3 times daily. 2. Wean and DC diltiazem as keeping heart rate between 55 and 100. 3. If unsuccessful in maintaining rate control would consider adding IV amiodarone short-term if he is not absorbing p.o. medications. 4. When appropriate would reinstitute Eliquis 5 mg twice daily. 5. If further assistance is needed from cardiology please reconsult us. HPI Consult Data Date of Consult: 10/31/24 HPI Narrative Reason for Consultation: Atrial fibrillation graph ventricular response. HPI Narrative: TAZ FOSTER, is a 89 M who presents patient is been hospitalized for several days due to pulmonary and gallbladder infections. He is status post percutaneous drainage of his gallbladder due to inability to undergo surgical procedure. Patient carries a history of atrial fibrillation he denies any previous history of stroke. I looked back to his far back as 2019 and every ECG the patient's had done he has been in atrial fibrillation with a right bundle branch block. He had historically been on Eliquis 5 mg twice daily in his home environment metoprolol 50 mg twice daily. Heart rate at this time shows atrial fibrillation with an average rate of 90 bpm on telemetry. The patient denies any palpitations denies any significant shortness of breath. He has had issues with clearing his secretions from a pulmonary perspective and has a tube in place to drain his gallbladder. He is currently taking p.o. metoprolol 50 mg twice daily and is on diltiazem infusion. Given his infectious process and general medical situation would expect his heart rate to be in the 80 to 100 bpm range with his atrial fibrillation when it is controlled. The patient is not on anticoagulation at this time due to his percutaneous drainage of his gallbladder. I would recommend short acting Lovenox be reinstituted until he can be transition back to his Eliquis. [facility] Medical History Type 2 diabetes mellitus Hyperlipidemia HTN (hypertension) Pulmonary hypertension Diverticulosis Insomnia Atrial fibrillation with RVR Histoplasmosis GERD (gastroesophageal reflux disease) History of skin cancer Solar keratosis Ulcer of right leg Burn scar Home Medications ?Medication ?Instructions ?Recorded ?Last Taken ?Type omeprazole 40 mg capsule,delayed 20 mg PO DAILY reflux 07/22/15 09/05/19 06:00 History release albuterol sulfate 90 mcg/actuation 1 puff PO Q6H shortness of breath 09/05/19 09/05/19 12:00 History breath activated powder inhaler multivitamin 1 tab PO QWEEK 09/25/19 Unknown History apixaban 5 mg tablet 5 mg PO BID #180 tabs 09/26/19 Unknown Rx cholecalciferol (vitamin D3) 50 50 mcg PO DAILY 09/26/19 Unknown History mcg (2,000 unit) tablet metoprolol tartrate 50 mg tablet 50 mg PO BID #180 tabs 09/26/19 Unknown Rx tadalafil 5 mg tablet 5 mg PO DAILY 09/26/19 Unknown History Lactobacillus acidophilus 10 10,000 mmu cells PO DAILY 09/30/23 09/30/23 History billion cell capsule (Probiotic) supplement apixaban 5 mg tablet (Eliquis) 5 mg PO BID blood thinner 09/30/23 09/30/23 History calcium 600 mg (as 1 tab PO DAILY supplement 09/30/23 09/30/23 History carbonate)-vitamin D3 10 mcg (400 unit) tablet fluticasone fur. 200 mcg-umeclid 1 ea inhalation DAILY breathing 09/30/23 09/30/23 History 62.5 mcg-vilant 25 mcg inhalat.powder (Trelegy Ellipta) metoprolol tartrate 50 mg tablet 50 mg PO BID heart 09/30/23 09/30/23 History multivitamin (Daily Multi-Vitamin 1 tab PO DAILY supplement 09/30/23 09/30/23 History tablet) omeprazole 20 mg capsule,delayed 20 mg PO DAILY acid reflux 09/30/23 09/30/23 History release furosemide 20 mg tablet 20 mg PO DAILY PRN swelling 10/26/24 Unknown History hydralazine 25 mg tablet mg PO 10/26/24 Unknown History ipratropium 0.5 mg-albuterol 3 mg 3 ml inhalation TID 10/26/24 Unknown History (2.5 mg base)/3 mL nebulization soln losartan 100 mg tablet 100 mg PO DAILY 10/26/24 Unknown History magnesium 200 mg tablet 200 mg PO DAILY 10/26/24 Unknown History metformin 500 mg tablet 500 mg PO BID 10/26/24 Unknown History rosuvastatin 20 mg tablet 20 mg PO DAILY 10/26/24 Unknown History Allergy/AdvReac Type Severity Reaction Status Date / Time No Known Allergies Allergy Verified 10/26/24 16:44 Family History Mother Breast cancer Father Colon cancer Melanoma Brother COPD (chronic obstructive pulmonary disease) Grandfather Multiple myeloma Surgical History History of left hip replacement History of arthroscopic knee surgery History of skin graft History of transurethral resection of prostate History of right hip replacement History of rotator cuff surgery History of tonsillectomy and adenoidectomy Social History household members: spouse Smoking Status: Former smoker how long ago did patient quit smokin years ago alcohol intake: current alcohol intake frequency: a few times a week Alcohol type: wine substance use type: does not use caffeine: No Homelessness:: Sheltered ROS Constitutional Constitutional: Reports as per HPI Eyes Eyes: Reports systems reviewed and no addt'l complaints, except as documented ENT HEENT: Reports systems reviewed and no addt'l complaints, except as documented Cardiovascular Cardiovascular: Reports as per HPI Respiratory/Chest Respiratory/Chest: Reports as per HPI Gastrointestinal Gastrointestinal: Reports as per HPI Genitourinary Genitourinary: Reports systems reviewed and no addt'l complaints, except as documented Musculoskeletal Musculoskeletal: Reports systems reviewed and no addt'l complaints, except as documented Integumentary Integumentary: Reports systems reviewed and no addt'l complaints, except as documented Neurologic Neurologic: Reports systems reviewed and no addt'l complaints, except as documented Psychiatric Psychiatric: Reports systems reviewed and no addt'l complaints, except as documented Endocrine Endocrinology: Reports systems reviewed and no addt'l complaints, except as documented Hematologic/Lymphatic Hematologic/Lymphatic: Reports systems reviewed and no addt'l complaints, except as documented Allergic/Immunologic Allergic/Immunologic: Reports systems reviewed and no addt'l complaints, except as documented Physical Exam Const alert Eyes EOMs intact bilaterally Neck no JVD and no carotid bruits Chest inspection of chest normal Resp normal respiratory effort Auscultation: diminished lung sounds diffuse Cardio Cardio Narrative: Distant heart tones due to respiratory status and increased AP diameter. Rate: regular rate Rhythm: abnormal rhythm irregularly irregular Heart Sounds: S1 normal and S2 normal; Negative for click, gallop or murmur GI GI Narrative: Distended but nontender Extremity no pedal edema Psych cooperative Charges/Coding Visit Charges Inpatient E&M: 24748 Init Hosp L2 Objective Data Vital Signs: Vital Signs Temp Pulse Resp BP Pulse Ox O2 Del Method O2 Flow Rate 98.3 F 105 H 20 H 144/100 H 96 Nasal Cannula 2 10/31/24 04:00 10/31/24 08:00 10/31/24 08:00 10/31/24 08:00 10/31/24 08:00 10/31/24 08:00 10/31/24 08:00 Oxygen Flow Rate (L/min) 2 Oxygen Delivery Method Nasal Cannula Weight: 216 lb 4.375 oz Body Mass Index (BMI) 29.2 Intake & Output: Intake and Output for Last 24 Hours 10/29/24 10/30/24 10/31/24 23:59 23:59 23:59 Intake Total 3870 / 3870 1500 / 1500 242.5 / 242.5 Output Total 995 / 1185 1120 / 1120 250 / 250 Balance 2875 / 2685 380 / 380 -7.5 / -7.5 Lab / Micro Data Attestation: I reviewed the patient's lab results. 10/31/24 06:47 10/31/24 06:47 Labs: Laboratory Results - last 24 hr 10/30/24 09:40: WBC 11.8 H, RBC 4.19 L, Hgb 12.4 L, Hct 37.4 L, MCV 89.3, MCH 29.6, MCHC 33.2, RDW Std Deviation 51.3 H, RDW Coeff of Pollo 15.8 H, Plt Count 166, MPV 10.0, Immature Gran % (Auto) 1.100 H, Neut % (Auto) 85.4 H, Lymph % (Auto) 5.6 L, [place] % (Auto) 6.4, Eos % (Auto) 1.1, Baso % (Auto) 0.4, Absolute Neuts (auto) 10.1 H, Absolute Lymphs (auto) 0.66 L, Nucleated RBC % 0, Sodium 142, Potassium 3.9, Chloride 111 H, Carbon Dioxide 22.2, Anion Gap 10, BUN 26 H, Creatinine 1.31 H, Estim Creat Clear Calc 47.66 L, Est GFR (MDRD) Non-Af 52 L, BUN/Creatinine Ratio 20.1 H, Glucose 126 H, Calcium 9.2, Total Bilirubin 1.12, AST 166 H, ALT 81 H, Alkaline Phosphatase 136 H, Total Protein 5.5 L, Albumin 2.9 L, Globulin 2.6, Albumin/Globulin Ratio 1.1 10/30/24 11:41: POC Glucose 92 10/30/24 16:40: POC Glucose 94 10/30/24 22:26: POC Glucose 109 H 10/30/24 23:57: POC Glucose 107 H 10/31/24 06:34: POC Glucose 144 H 10/31/24 06:47: WBC 11.4 H, RBC 4.07 L, Hgb 11.9 L, Hct 36.0 L, MCV 88.5, MCH 29.2, MCHC 33.1, RDW Std Deviation 51.0 H, RDW Coeff of Pollo 15.7 H, Plt Count 179, MPV 10.1, Immature Gran % (Auto) 1.200 H, Neut % (Auto) 83.5 H, Lymph % (Auto) 6.4 L, [place] % (Auto) 6.2, Eos % (Auto) 2.0, Baso % (Auto) 0.7, Absolute Neuts (auto) 9.5 H, Absolute Lymphs (auto) 0.73 L, Nucleated RBC % 0, Sodium 142, Potassium 3.6, Chloride 111 H, Carbon Dioxide 23.3, Anion Gap 8, BUN 26 H, Creatinine 1.30 H, Estim Creat Clear Calc 47.67 L, Est GFR (MDRD) Non-Af 53 L, BUN/Creatinine Ratio 20.2 H, Glucose 159 H, Calcium 9.1, Total Bilirubin 1.31 H, AST 310 H, ALT 174 H, Alkaline Phosphatase 203 H, Total Protein 5.4 L, Albumin 2.7 L, Globulin 2.7, Albumin/Globulin Ratio 1.0 Micro: Microbiology 10/29/24 Unknown Fluid - Gallbladder Gram Stain - Final 10/29/24 Unknown Fluid - Gallbladder Body Fluid Culture - Final Escherichia coli Klebsiella oxytoca 10/26/24 15:55 Blood Culture (Wb) - Arm Right Blood Culture - Preliminary No growth in 48 hours. 10/26/24 15:55 Blood Culture (Wb) - Arm Left Blood Culture - Preliminary No growth in 48 hours. Rhythm Strip Rhythm Strip: A-fib Rate: 90 Cardiology Labs/Tests 10/30/24 09:40: WBC 11.8 H, RBC 4.19 L, Hgb 12.4 L, Hct 37.4 L, MCV 89.3, MCH 29.6, MCHC 33.2, Plt Count 166, MPV 10.0, Immature Gran % (Auto) 1.100 H, Neut % (Auto) 85.4 H, Lymph % (Auto) 5.6 L, [place] % (Auto) 6.4, Eos % (Auto) 1.1, Baso % (Auto) 0.4, Absolute Neuts (auto) 10.1 H, Nucleated RBC % 0, Sodium 142, Potassium 3.9, Chloride 111 H, Carbon Dioxide 22.2, Anion Gap 10, BUN 26 H, Creatinine 1.31 H, Est GFR (MDRD) Non-Af 52 L, BUN/Creatinine Ratio 20.1 H, Glucose 126 H, Calcium 9.2, Total Bilirubin 1.12 10/31/24 06:47: WBC 11.4 H, RBC 4.07 L, Hgb 11.9 L, Hct 36.0 L, MCV 88.5, MCH 29.2, MCHC 33.1, Plt Count 179, MPV 10.1, Immature Gran % (Auto) 1.200 H, Neut % (Auto) 83.5 H, Lymph % (Auto) 6.4 L, [place] % (Auto) 6.2, Eos % (Auto) 2.0, Baso % (Auto) 0.7, Absolute Neuts (auto) 9.5 H, Nucleated RBC % 0, Sodium 142, Potassium 3.6, Chloride 111 H, Carbon Dioxide 23.3, Anion Gap 8, BUN 26 H, Creatinine 1.30 H, Est GFR (MDRD) Non-Af 53 L, BUN/Creatinine Ratio 20.2 H, Glucose 159 H, Calcium 9.1, Total Bilirubin 1.31 H Rhythm: EKG: ECHO: Stress Test: Cardiac Cath: PCI: CT Surgery: Holter monitor: EPS: PPM: CXR: Chest CT Scan: BORA Risk Score for UA/STEMI Assesmment (YES = 1) Risk Stratification Applicable: No
[2024-10-31] MEDS: KCL 20MEQ in D5.45NS 20 MEQ/1,000 ML IV.SOLN. 60 MEQ IV (09:22)
[2024-10-31] MEDS: Ceftriaxone 2 GM in 0.9% Normal Saline (50mL MB+) 50 ML IV (10:15)
[2024-10-31] MEDS: metroNIDAZOLE 500 MG/100 ML BAG 100 MG IV ×2 (13:34→20:59)
--- NOTE | 2024-10-31 13:34 | PCM.CONS.GEN ---
Assessment & Plan Assessment/Plan (1) Sepsis: (2) Acute cholecystitis: PLAN: Overall improved. Lauryn tube in place, surgery following. Recommend ceftriaxone and flagyl for now. Will follow, thank you, d/w Dr. Bose HPI Consult Data Date of Consult: 10/31/24 HPI Narrative Reason for Consultation: cholecystitis HPI Narrative: TAZ FOSTER, is a 89 M with h/o CVAs, CKD, DM, presented 10/26 with acute onset RUQ pain with n/v. Pain was moderate. Some associated chills. Thought it was food poisoning. Came to ED, admitted on zosyn. Seen by surgery, had lauryn tube placed. Now feeling better. Pt unable to provide history; obtained from at bedside. Full ROS performed and neg except as noted above. [facility] Medical History Type 2 diabetes mellitus Hyperlipidemia HTN (hypertension) Pulmonary hypertension Diverticulosis Insomnia Atrial fibrillation with RVR Histoplasmosis GERD (gastroesophageal reflux disease) History of skin cancer Solar keratosis Ulcer of right leg Burn scar Home Medications ?Medication ?Instructions ?Recorded ?Last Taken ?Type omeprazole 40 mg capsule,delayed 20 mg PO DAILY reflux 07/22/15 09/05/19 06:00 History release albuterol sulfate 90 mcg/actuation 1 puff PO Q6H shortness of breath 09/05/19 09/05/19 12:00 History breath activated powder inhaler multivitamin 1 tab PO QWEEK 09/25/19 Unknown History apixaban 5 mg tablet 5 mg PO BID #180 tabs 09/26/19 Unknown Rx cholecalciferol (vitamin D3) 50 50 mcg PO DAILY 09/26/19 Unknown History mcg (2,000 unit) tablet metoprolol tartrate 50 mg tablet 50 mg PO BID #180 tabs 09/26/19 Unknown Rx tadalafil 5 mg tablet 5 mg PO DAILY 09/26/19 Unknown History Lactobacillus acidophilus 10 10,000 mmu cells PO DAILY 09/30/23 09/30/23 History billion cell capsule (Probiotic) supplement apixaban 5 mg tablet (Eliquis) 5 mg PO BID blood thinner 09/30/23 09/30/23 History calcium 600 mg (as 1 tab PO DAILY supplement 09/30/23 09/30/23 History carbonate)-vitamin D3 10 mcg (400 unit) tablet fluticasone fur. 200 mcg-umeclid 1 ea inhalation DAILY breathing 09/30/23 09/30/23 History 62.5 mcg-vilant 25 mcg inhalat.powder (Trelegy Ellipta) metoprolol tartrate 50 mg tablet 50 mg PO BID heart 09/30/23 09/30/23 History multivitamin (Daily Multi-Vitamin 1 tab PO DAILY supplement 09/30/23 09/30/23 History tablet) omeprazole 20 mg capsule,delayed 20 mg PO DAILY acid reflux 09/30/23 09/30/23 History release furosemide 20 mg tablet 20 mg PO DAILY PRN swelling 10/26/24 Unknown History hydralazine 25 mg tablet mg PO 10/26/24 Unknown History ipratropium 0.5 mg-albuterol 3 mg 3 ml inhalation TID 10/26/24 Unknown History (2.5 mg base)/3 mL nebulization soln losartan 100 mg tablet 100 mg PO DAILY 10/26/24 Unknown History magnesium 200 mg tablet 200 mg PO DAILY 10/26/24 Unknown History metformin 500 mg tablet 500 mg PO BID 10/26/24 Unknown History rosuvastatin 20 mg tablet 20 mg PO DAILY 10/26/24 Unknown History Allergy/AdvReac Type Severity Reaction Status Date / Time No Known Allergies Allergy Verified 10/26/24 16:44 Family History Mother Breast cancer Father Colon cancer Melanoma Brother COPD (chronic obstructive pulmonary disease) Grandfather Multiple myeloma Surgical History History of left hip replacement History of arthroscopic knee surgery History of skin graft History of transurethral resection of prostate History of right hip replacement History of rotator cuff surgery History of tonsillectomy and adenoidectomy Social History household members: spouse Smoking Status: Former smoker how long ago did patient quit smokin years ago alcohol intake: current alcohol intake frequency: a few times a week Alcohol type: wine substance use type: does not use caffeine: No Homelessness:: Sheltered Physical Exam Const alert and no apparent distress General Appearance: lethargic HEENT normocephalic and head/scalp atraumatic Eyes PERRL and EOMs intact bilaterally Neck supple and No nodes Resp normal air movement and clear to auscultation bilaterally Cardio Negative for regular rhythm Rate: tachycardic GI soft to palpation, non-tender and non-distended Extremity General Extremity: Negative for edema Skin no rashes or lesions noted Neuro CN's II-XII intact bilaterally Lab / Micro Data Attestation: I reviewed the patient's lab results. 10/31/24 06:47 10/31/24 06:47 Labs: Laboratory Results - last 24 hr 10/30/24 09:40: Sodium 142, Potassium 3.9, Chloride 111 H, Carbon Dioxide 22.2, Anion Gap 10, BUN 26 H, Creatinine 1.31 H, Estim Creat Clear Calc 47.66 L, Est GFR (MDRD) Non-Af 52 L, BUN/Creatinine Ratio 20.1 H, Glucose 126 H, Calcium 9.2, Total Bilirubin 1.12, AST 166 H, ALT 81 H, Alkaline Phosphatase 136 H, Total Protein 5.5 L, Albumin 2.9 L, Globulin 2.6, Albumin/Globulin Ratio 1.1 10/30/24 16:40: POC Glucose 94 10/30/24 22:26: POC Glucose 109 H 10/30/24 23:57: POC Glucose 107 H 10/31/24 06:34: POC Glucose 144 H 10/31/24 06:47: WBC 11.4 H, RBC 4.07 L, Hgb 11.9 L, Hct 36.0 L, MCV 88.5, MCH 29.2, MCHC 33.1, RDW Std Deviation 51.0 H, RDW Coeff of Pollo 15.7 H, Plt Count 179, MPV 10.1, Immature Gran % (Auto) 1.200 H, Neut % (Auto) 83.5 H, Lymph % (Auto) 6.4 L, [place] % (Auto) 6.2, Eos % (Auto) 2.0, Baso % (Auto) 0.7, Absolute Neuts (auto) 9.5 H, Absolute Lymphs (auto) 0.73 L, Nucleated RBC % 0, Sodium 142, Potassium 3.6, Chloride 111 H, Carbon Dioxide 23.3, Anion Gap 8, BUN 26 H, Creatinine 1.30 H, Estim Creat Clear Calc 47.67 L, Est GFR (MDRD) Non-Af 53 L, BUN/Creatinine Ratio 20.2 H, Glucose 159 H, Calcium 9.1, Total Bilirubin 1.31 H, AST 310 H, ALT 174 H, Alkaline Phosphatase 203 H, Total Protein 5.4 L, Albumin 2.7 L, Globulin 2.7, Albumin/Globulin Ratio 1.0 10/31/24 11:38: POC Glucose 128 H Micro: Microbiology 10/29/24 Unknown Fluid - Gallbladder Gram Stain - Final 10/29/24 Unknown Fluid - Gallbladder Body Fluid Culture - Final Escherichia coli Klebsiella oxytoca 10/29/24 Unknown Fluid - Gallbladder Anaerobic Culture - Preliminary Rhythm Strip Rhythm Strip: A-fib Rate: 90
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
--- NOTE | 2024-10-31 20:52 | NURSING ---
1999: pt attempted to get out of chair setting off chair alarm. pt confused, states he is going home. this rn and tech at bedside, able to redirect and reorient pt. pt wishes to get back to bed and is able to ambulate with 1 assist and walker from chair to bed. pt also noted to have pulled on benavides catheter and removed stat lock. stat lock reapplied and pt educated on importance of benavides and securement device. pt verbalizes understanding and provides teachback. in bed, pt requested ice chips and complained of low back pain 08/30 requesting pain meds. see mar for more details. pt is in bed resting comfortably, call rios in hand, bed alarm on. vitals stable on monitor. 2l nc applied for sob with exertion from chair to bed. continue to monitor.
--- NOTE | 2024-10-31 21:27 | NURSING ---
pt complained of nausea with med pass. medicated per apr. pt resting comfortably. call rios in hand. bed alarm on. vitals stable on monitor. continue to monitor.
--- NOTE | 2024-10-31 22:29 | NURSING ---
pt appears to be increasing in confusion and agitation. requesting to be moved out of bed so he can go home. this rn at bedside, attempt to reorient pt and educate pt on importance of patient safety. pt verbalizes understanding but remains confused. upon recheck, pt has pulled all clothes off and requests to be unhooked so he can get out of here. attempt to reorient pateint but patient remains confused and pulling at clothes and wires.
[2024-11-01] VITALS (18 sets, daily range): BP systolic 119–170; BP diastolic 83–121; PULSE 95–170; RESP 15–28; TEMP 36.4–36.9; O2SAT 94–99; BMI 29.7
[2024-11-01] MEDS: KCL 20MEQ in D5.45NS 20 MEQ/1,000 ML IV.SOLN. 60 MEQ IV (03:55)
--- NOTE | 2024-11-01 04:14 | NURSING ---
pt yelling for people who arent there. asking this rn to go downstairs to get him something. this rn at bedside, attempts to reorient patient. pt insists that he is home and that claims he is not physically at the hospital but would like to be and asked if he can catch a ride with you back to the hospital. pt continues yelling out into the hallway for people. i explained to pt that no one was out there, pt unable to comprehend or be reoriented. pt remains confused. pt attempts to climb out of bed and asks to be disconnected from wires so that he can get out of here. pt medicated per apr. pt remains safely in bed, call rios within reach. vitals stable on monitor. bed alarm on and functioning. continue to monitor.
[2024-11-01 04:15] LABS: Hematocrit 37.9 % (40-54); Hemoglobin 12.7 g/dL (13.0-16.5); Immature Granulocytes Count 0.290 X10^3/uL (0.0-0.0); Mean Corp Hgb Conc 33.5 g/dL (32-36); Mean Corpuscular Volume 87.9 fL (80-94); Mean Platelet Vol. 10.1 fl (6.2-12.0); NRBC Flagged by Analyzer 0 % (0-5); Platelet Count 168 K/mm3 (150-450); RBC Distribution Width CV 15.7 % (11.6-14.6); RBC Distribution Width SD 50.8 fl (35.1-43.9); Red Blood Count 4.31 M/mm3 (4.6-6.2); White Blood Count 11.6 K/mm3 (4.4-11.0)
[2024-11-01 04:45] LABS: Anion Gap 10 (5-15); BUN 20 mg/dL (4-19); BUN/Creat Ratio 18.4 RATIO (10-20); Calcium,Total 8.9 mg/dL (7.6-11.0); Carbon Dioxide 22.1 mmol/L (21.0-32.0); Chloride 108 mmol/L (98-108); Estimated Creatinine Clearance 58.87 ml/min (50-250); Glucose 122 mg/dL (70-99); Potassium 3.7 mmol/L (3.3-5.1)
[2024-11-01] MEDS: metroNIDAZOLE 500 MG/100 ML BAG 100 MG IV ×3 (05:27→21:38)
[2024-11-01] MEDS: Budesonide Respules 0.5 MG/2 ML AMPUL.NEB. INHALATION ×2 (07:17→19:11)
[2024-11-01] MEDS: Ipratropium 0.5 MG/2.5 ML SOLUTION INHALATION ×3 (07:17→19:10)
--- NOTE | 2024-11-01 07:47 | PN.HOSP_ITS ---
Reason for Visit Chief Complaint: Abdominal pain, N/V. Subjective Subjective Patient with significant agitation overnight and required IV Haldol and got morphine. Has contributed to significant somnolence today. Also per nursing patient has slept very little since admission. I did discuss with his my plan for today to see if we can get him a little bit acclimated back to it day day sleep cycle and hold off any super sedating medications and use melatonin 10 mg at night with some low-dose risperidone. His states she plans on staying with him. Overall he is clinically improved however we need to keep him off IV medications and make sure he can eat and drink well until we can discuss discharge for rehab. Objective Data Objective Data Vital Signs: Vital Signs Temp Pulse Resp BP Pulse Ox O2 Del Method O2 Flow Rate 98.2 F 117 H 20 H 152/105 H 99 Nasal Cannula 2 11/01/24 06:00 11/01/24 07:18 11/01/24 07:18 11/01/24 06:00 11/01/24 07:18 11/01/24 07:18 11/01/24 07:18 Oxygen Flow Rate (L/min) 2 Oxygen Delivery Method Nasal Cannula Weight: 99.6 kg Body Mass Index (BMI) 29.7 Intake & Output: Intake and Output for Last 24 Hours 10/30/24 10/31/24 11/01/24 23:59 23:59 23:59 Intake Total 1500 / 1500 1475.0 / 1475.0 1100 / 1100 Output Total 1120 / 1120 835 / 835 420 / 420 Balance 380 / 380 640.0 / 640.0 680 / 680 Lab / Micro Data 11/01/24 04:05 11/01/24 04:05 Labs: Laboratory Results - last 24 hr 10/31/24 11:38: POC Glucose 128 H 10/31/24 16:25: POC Glucose 126 H 10/31/24 21:18: POC Glucose 118 H 11/01/24 04:05: WBC 11.6 H, RBC 4.31 L, Hgb 12.7 L, Hct 37.9 L, MCV 87.9, MCH 29.5, MCHC 33.5, RDW Std Deviation 50.8 H, RDW Coeff of Pollo 15.7 H, Plt Count 168, MPV 10.1, Immature Gran % (Auto) 2.500 H, Neut % (Auto) 77.1 H, Lymph % (Auto) 9.7 L, [place] % (Auto) 7.7, Eos % (Auto) 2.2, Baso % (Auto) 0.8, Absolute Neuts (auto) 8.9 H, Absolute Lymphs (auto) 1.12, Nucleated RBC % 0, Sodium 140, Potassium 3.7, Chloride 108, Carbon Dioxide 22.1, Anion Gap 10, BUN 20 H, Creatinine 1.06, Estim Creat Clear Calc 58.87, Est GFR (MDRD) Non-Af 68, BUN/Creatinine Ratio 18.4, Glucose 122 H, Calcium 8.9 Micro: Microbiology 10/29/24 Unknown Fluid - Gallbladder Gram Stain - Final 10/29/24 Unknown Fluid - Gallbladder Body Fluid Culture - Final Escherichia coli Klebsiella oxytoca 10/29/24 Unknown Fluid - Gallbladder Anaerobic Culture - Preliminary 10/26/24 15:55 Blood Culture (Wb) - Arm Right Blood Culture - Preliminary No growth in 48 hours. 10/26/24 15:55 Blood Culture (Wb) - Arm Left Blood Culture - Preliminary No growth in 48 hours. 10/27/24 09:24 Mucosa - Nasopharyngeal Coronavirus COVID-19 PCR - Final 10/27/24 01:25 Nasal Secretion MRSA (PCR) - Final 10/27/24 00:52 Mucosa - Nasopharyngeal Respiratory Panel (PCR) - Final 10/27/24 02:25 Urine, Random Legionella Antigen - Final 10/27/24 02:25 Urine, Random Streptococcus pneumoniae Antigen (M - Final Rhythm Strip Rhythm Strip: A-fib Rate: 90 Social Homelessness:: Sheltered Physical Exam Const no apparent distress Constitutional Narrative: Overweight, somnolent, elderly, white male, sitting up in a chair at the bedside sleeping, minimally arousable, at bedside, patient appears comfortable, does not look toxic, general surgery in the room at the time of my arrival HEENT head/scalp atraumatic Head and Scalp: normocephalic Eyes conjunctivae normal Resp normal respiratory effort, no retractions, no use of accessory muscles and clear to auscultation bilaterally Auscultation: Negative for rales, rhonchi or wheezes Cardio S1 normal heart sound, S2 normal heart sound, no murmurs, no rub, no gallops and no clicks Cardio Narrative: Irregular irregular with controlled rate currently GI normal to inspection, nondistended, normoactive bowel sounds and soft to palpation GI Narrative: Mild tenderness right upper quadrant with drain in place Extremity Extremity Narrative: Chronic lower extremity edema, no cyanosis or clubbing Neuro Neuro Narrative: Limited exam due to somnolence Psych Psych Narrative: Unable to assess Assessment & Plan Assessment/Plan (1) Sepsis: (2) Acute cholecystitis: PLAN: Plan Sepsis secondary to acute cholecystitis/possible aspiration pneumonia - Status post percutaneous colostomy tube - Continue antimicrobials with ceftriaxone and Flagyl per infectious disease - ID will need to drive for length of antibiotic course - Perc drain per general surgery with outpatient follow-up - Currently not surgical candidate but will follow from surgical standpoint to see if he would be a candidate in the future - Sepsis syndrome has resolved - Patient was on room air Acute hypoxic respiratory failure - Resolved - Highly suspicious for aspiration pneumonia next-continue speech therapy - Patient does have known recurrent history of aspiration - Mental status should be at peak when patient needs to avoid ongoing aspiration Atrial fibrillation with RVR - Cardiology is following-appreciate input - Continue apixaban and beta-mattie - Patient still with intermittent tachycardia - Per last cardiology note if heart rate control stan difficult we will consider increasing to amiodarone Toxic/metabolic encephalopathy - Patient markedly somnolent today and has not been sleeping well plus receiving morphine and Haldol overnight - Discontinue IV Haldol - Will start risperidone and melatonin 10 mg scheduled at night for delirium and try to normalize his sleep-wake cycle as this will help his encephalopathy CKD stage IIIa - Serum creatinine is stable - Would like to discontinue Kern tomorrow as long as he is more awake DM-2 - Hold oral regimen is on hold next-continue Accu-Cheks as ordered - Continue SSI - A1c was 6.3 Essential hypertension - Beta-mattie as ordered - If pressures remain elevated will reinstitute home losartan as renal function seems to be improving - Reassess in a.m. 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
--- NOTE | 2024-11-01 07:58 | PCM.PN.SRG ---
Subjective Subjective Patient evaluated resting comfortably in bed. He has an audible chest rattle. He denies any abdominal pain. Per night nursing, patient aggitated and confused again. Objective Data Objective Data Vital Signs: Vital Signs Temp Pulse Resp BP Pulse Ox O2 Del Method O2 Flow Rate 98.2 F 117 H 20 H 152/105 H 99 Nasal Cannula 2 11/01/24 06:00 11/01/24 07:18 11/01/24 07:18 11/01/24 06:00 11/01/24 07:18 11/01/24 07:18 11/01/24 07:18 Oxygen Flow Rate (L/min) 2 Oxygen Delivery Method Nasal Cannula Weight: 219 lb 9.286 oz Body Mass Index (BMI) 29.7 Intake & Output: Intake and Output for Last 24 Hours 10/30/24 10/31/24 11/01/24 23:59 23:59 23:59 Intake Total 1500 / 1500 1475.0 / 1475.0 1100 / 1100 Output Total 1120 / 1120 835 / 835 420 / 420 Balance 380 / 380 640.0 / 640.0 680 / 680 Lab / Micro Data 11/01/24 04:05 11/01/24 04:05 Labs: Laboratory Results - last 24 hr 10/31/24 11:38: POC Glucose 128 H 10/31/24 16:25: POC Glucose 126 H 10/31/24 21:18: POC Glucose 118 H 11/01/24 04:05: WBC 11.6 H, RBC 4.31 L, Hgb 12.7 L, Hct 37.9 L, MCV 87.9, MCH 29.5, MCHC 33.5, RDW Std Deviation 50.8 H, RDW Coeff of Polol 15.7 H, Plt Count 168, MPV 10.1, Immature Gran % (Auto) 2.500 H, Neut % (Auto) 77.1 H, Lymph % (Auto) 9.7 L, Mcpherson % (Auto) 7.7, Eos % (Auto) 2.2, Baso % (Auto) 0.8, Absolute Neuts (auto) 8.9 H, Absolute Lymphs (auto) 1.12, Nucleated RBC % 0, Sodium 140, Potassium 3.7, Chloride 108, Carbon Dioxide 22.1, Anion Gap 10, BUN 20 H, Creatinine 1.06, Estim Creat Clear Calc 58.87, Est GFR (MDRD) Non-Af 68, BUN/Creatinine Ratio 18.4, Glucose 122 H, Calcium 8.9 11/01/24 07:23: POC Glucose 113 H Micro: Microbiology 10/29/24 Unknown Fluid - Gallbladder Gram Stain - Final 10/29/24 Unknown Fluid - Gallbladder Body Fluid Culture - Final Escherichia coli Klebsiella oxytoca 10/29/24 Unknown Fluid - Gallbladder Anaerobic Culture - Preliminary 10/26/24 15:55 Blood Culture (Wb) - Arm Right Blood Culture - Preliminary No growth in 48 hours. 10/26/24 15:55 Blood Culture (Wb) - Arm Left Blood Culture - Preliminary No growth in 48 hours. 10/27/24 09:24 Mucosa - Nasopharyngeal Coronavirus COVID-19 PCR - Final 10/27/24 01:25 Nasal Secretion MRSA (PCR) - Final 10/27/24 00:52 Mucosa - Nasopharyngeal Respiratory Panel (PCR) - Final 10/27/24 02:25 Urine, Random Legionella Antigen - Final 10/27/24 02:25 Urine, Random Streptococcus pneumoniae Antigen (M - Final Rhythm Strip Rhythm Strip: A-fib Rate: 90 Social Homelessness:: Sheltered Physical Exam GI GI Narrative: Abdomen- less distended. PERI drain intact and draining bilious/bloody fluid. Drain sponge appears intact. Non-tender with palpation Assessment & Plan Assessment/Plan (1) Sepsis: (2) Acute cholecystitis: PLAN: Plan I am following this patient in conjunction with Dr. Cavazos. He will independently evaluate this patient. Labs reviewed. WBC remains the same. Cytology from drain placement is growing E. Coli and Klebsiella oxytoca Patient changed from Zosyn to Ceftriaxone and Flagyl Anaerobic culture pending Infectious disease consulted No surgical intervention recommended at this time as patient is too high risk for a cholecystectomy currently Limit narcotics as much as possible We will continue to monitor this patient Charges/Coding Visit Charges Inpatient E&M: 66907 Subs Hosp L2
[2024-11-01] MEDS: Ceftriaxone 2 GM in 0.9% Normal Saline (50mL MB+) 50 ML IV (08:16)
[2024-11-01] MEDS: Pantoprazole Sodium 40 MG in 0.9% Normal Saline (100mL MB+) 100 ML 330 MG IV ×2 (08:16→21:37)
[2024-11-01] MEDS: Senna/Docusate Sodium 1 Tablet 2 TABLET PO ×2 (08:18→21:40)
[2024-11-01] MEDS: Lactobacillis Acidophilus 1 CAP PO (08:19)
[2024-11-01] MEDS: 0.9% Normal Saline (250mL Bag) 250 ML 15 ML IV (08:36)
[2024-11-01] MEDS: 0.9% Saline Lock 10 ML Syringe IV (08:36)
--- NOTE | 2024-11-01 09:28 | CASEMGMT ---
Addendum entered by Maurisio Kirk 11/01/24 10:54: Hospitalist reports to this RN CM that the pt is not medically ready and that the SNF referral process should not be started until tomorrow at the earliest. This RN CM printed off a list of SNF's that are local and in-network with the pt's insurance via [employer]. RN CM to the pt's room at this time. SNF list provided to the pt's . Updated the pt's that a referral to TCU can likely be made tomorrow. Requested the pt's to review the list and make other choices/ preferences in the case that TCU cannot accept. Pt's states understanding and denies further questions, concerns, or needs. CM to follow. Original Note: LUPE SAVAGE to the pt's room at this time to discuss future DC planning. Pt's is at bedside. Per the pt's RN, pt is confused and weak currently. Pt received Haldol and morphine overnight and is drowsy. At this time, the pt's states that she does not feel safe caring for the pt at home and prefers the pt to attend a SNF for a short term rehab stay. Pt's states that she prefers [facility]CU as her FOC. CM to make referral once appropriate. Pt's denies further questions or concerns now. CM to follow.
--- NOTE | 2024-11-01 10:07 | PCM.PN.ID ---
Physical Exam Narrative Agitation and confusion last night, no fever, at bedside Const Orientation / Consciousness: lethargic Resp normal air movement and clear to auscultation bilaterally Cardio regular rate and regular rhythm GI soft to palpation, non-tender and non-distended Skin no rashes or lesions noted ID ID: Route of nutrition/ use of supplements: [] Nutritional Intake: [] IV Site: [] Kern Catheter: [] Assessment & Plan Assessment/Plan (1) Sepsis: (2) Acute cholecystitis: PLAN: Overall improved. Lauryn tube in place, surgery following. Recommend ceftriaxone and flagyl for now. Plan on 7 more days abx, stop date 11/08/24. Can change to po at discharge if he is able to tolerate. Will follow
[2024-11-01 17:28] LABS: Allen Test Positive; Base Excess 5 mmol/L (-2 to +2); FI02 2.0; PO2 95 mmHG (75-100); SITE L Radial; SO2 98 % (95-99)
[2024-11-01] MEDS: MELATONIN 10 MG TABLET PO (21:38)
[2024-11-02] VITALS (18 sets, daily range): BP systolic 118–162; BP diastolic 74–118; PULSE 99–142; RESP 12–32; TEMP 36.6–36.9; O2SAT 83–98; BMI 29.5
[2024-11-02 05:11] LABS: Hematocrit 37.1 % (40-54); Hemoglobin 12.4 g/dL (13.0-16.5); Mean Corp Hgb Conc 33.4 g/dL (32-36); Mean Corpuscular Volume 87.9 fL (80-94); Mean Platelet Vol. 9.9 fl (6.2-12.0); POSITIVE COUNT YES; POSITIVE MORPHOLOGY YES; Platelet Count 169 K/mm3 (150-450); RBC Distribution Width CV 15.7 % (11.6-14.6); RBC Distribution Width SD 50.4 fl (35.1-43.9); Red Blood Count 4.22 M/mm3 (4.6-6.2); White Blood Count 11.2 K/mm3 (4.4-11.0)
[2024-11-02 05:20] LABS: Differential Indicated MANUAL DIFF
[2024-11-02 05:41] LABS: AST(SGOT) 67 U/L (<=37); Alanine Aminotransfer ALT/SGPT 79 U/L (<=46); Albumin, Serum 2.5 g/dL (3.4-4.8); Alkaline Phosphatase 179 U/L (40-129); Anion Gap 9 (5-15); BUN 17 mg/dL (4-19); BUN/Creat Ratio 16.3 RATIO (10-20); Calcium,Total 8.4 mg/dL (7.6-11.0); Carbon Dioxide 22.8 mmol/L (21.0-32.0); Chloride 109 mmol/L (98-108); Estimated Creatinine Clearance 59.72 ml/min (50-250); Globulin 2.6 g/dL (2.2-4.2); Glucose 136 mg/dL (70-99); Magnesium 1.4 mg/dL (1.5-2.2); Potassium 3.7 mmol/L (3.3-5.1)
[2024-11-02 05:50] LABS: Neutrophil-Segmented 81 % (47-70); Total Cells Counted 100 (MANUAL DIFF)
[2024-11-02] MEDS: metroNIDAZOLE 500 MG/100 ML BAG 100 MG IV ×3 (05:50→21:02)
[2024-11-02 05:52] LABS: Smudge Cells 2+
[2024-11-02 05:57] LABS: Burr Cells RARE
[2024-11-02 05:59] LABS: Acanthocytes RARE; Polychromasia RARE
[2024-11-02 06:00] LABS: Differential Comment SCANNED
[2024-11-02] MEDS: Budesonide Respules 0.5 MG/2 ML AMPUL.NEB. INHALATION (06:58)
[2024-11-02] MEDS: Ipratropium 0.5 MG/2.5 ML SOLUTION INHALATION ×2 (06:58→12:47)
--- NOTE | 2024-11-02 07:34 | PCM.PN.HOSP ---
Reason for Visit Chief Complaint: Abdominal pain, N/V. Subjective Subjective Patient much more awake. Had a better night. is at the bedside and states that he seems to be doing much better. Did eat some today. Still intermittently tachycardic. Patient does not have any significant pain complaints and is still intermittently tired but his states that this is how he is at home as well. Objective Data Objective Data Vital Signs: Vital Signs Temp Pulse Resp BP Pulse Ox O2 Del Method O2 Flow Rate 98.2 F 102 H 20 H 155/116 H 98 Nasal Cannula 2 11/02/24 05:14 11/02/24 06:58 11/02/24 06:58 11/02/24 05:50 11/02/24 06:58 11/02/24 06:58 11/02/24 06:58 Oxygen Flow Rate (L/min) 2 Oxygen Delivery Method Nasal Cannula Weight: 98.6 kg Body Mass Index (BMI) 29.5 Intake & Output: Intake and Output for Last 24 Hours 10/31/24 11/01/24 11/02/24 23:59 23:59 23:59 Intake Total 1475.0 / 1475.0 2550 / 2550 350 / 350 Output Total 835 / 835 1330 / 1330 330 / 330 Balance 640.0 / 640.0 1220 / 1220 Lab / Micro Data 11/02/24 04:59 11/02/24 04:59 Labs: Laboratory Results - last 24 hr 11/01/24 07:23: POC Glucose 113 H 11/01/24 11:02: POC Glucose 115 H 11/01/24 16:07: POC Glucose 107 H 11/01/24 21:53: POC Glucose 102 11/02/24 04:59: WBC 11.2 H, RBC 4.22 L, Hgb 12.4 L, Hct 37.1 L, MCV 87.9, MCH 29.4, MCHC 33.4, RDW Std Deviation 50.4 H, RDW Coeff of Pollo 15.7 H, Plt Count 169, MPV 9.9, Neut % (Auto) Not Reportable, Absolute Neuts (auto) 9.1 H, Absolute Lymphs (auto) 1.01, Total Counted 100, Neutrophils % (Manual) 81 H, Lymphocytes % (Manual) 9 L, Monocytes % (Manual) 6, Eosinophils % (Manual) 2, Metamyelocytes % 1, Myelocytes % 1 H, Differential Comment SCANNED, Diff Path Review May foll, Atypical Lymphocytes 2+, Smudge Cells 2+, Platelet Estimate ADEQUATE, Plt Morphology Comment GIANT, Polychromasia RARE, Ovalocytes RAR, Beau Cells RARE, Acanthocytes (Spur) RARE, Sodium 141, Potassium 3.7, Chloride 109 H, Carbon Dioxide 22.8, Anion Gap 9, BUN 17, Creatinine 1.04, Estim Creat Clear Calc 59.72, Est GFR (MDRD) Non-Af 69, BUN/Creatinine Ratio 16.3, Glucose 136 H, Calcium 8.4, Phosphorus 2.0 L, Magnesium 1.4 L, Total Bilirubin 1.01, AST 67 H, ALT 79 H, Alkaline Phosphatase 179 H, Total Protein 5.1 L, Albumin 2.5 L, Globulin 2.6, Albumin/Globulin Ratio 1.0 Micro: Microbiology 10/26/24 15:55 Blood Culture (Wb) - Arm Right Blood Culture - Final No growth in 5 days. 10/26/24 15:55 Blood Culture (Wb) - Arm Left Blood Culture - Final No growth in 5 days. 10/29/24 Unknown Fluid - Gallbladder Gram Stain - Final 10/29/24 Unknown Fluid - Gallbladder Body Fluid Culture - Final Escherichia coli Klebsiella oxytoca 10/29/24 Unknown Fluid - Gallbladder Anaerobic Culture - Preliminary Anaerobic cocci Gram positive semaj 10/27/24 09:24 Mucosa - Nasopharyngeal Coronavirus COVID-19 PCR - Final 10/27/24 01:25 Nasal Secretion MRSA (PCR) - Final 10/27/24 00:52 Mucosa - Nasopharyngeal Respiratory Panel (PCR) - Final 10/27/24 02:25 Urine, Random Legionella Antigen - Final 10/27/24 02:25 Urine, Random Streptococcus pneumoniae Antigen (M - Final ABG Data ABG results: ABG 11/01/24 17:21 Specimen Type ART Sample Site L Radial pH 7.45 Bicarbonate Actual 28.8 H Total CO2 30 Base Excess 5 H O2 Saturation 98 O2 % 2.0 ABG pCO2 41.0 ABG pO2 95 Bronson Test Positive O2 Delivery Device Cannula Vent Mode Not entered Rhythm Strip Rhythm Strip: A-fib Rate: 90 Social Homelessness:: Sheltered Physical Exam Const alert, no apparent distress and well nourished; Negative for oriented x3 Constitutional Narrative: Overweight, somnolent, elderly, white male, sitting up in a chair at the bedside awake and interactive, is at the bedside, appears comfortable, nontoxic, oriented times self and intermittently place but not time HEENT head/scalp atraumatic and moist oral mucous membranes Head and Scalp: normocephalic Resp normal respiratory effort, no retractions, no use of accessory muscles and clear to auscultation bilaterally Auscultation: Negative for rales, rhonchi or wheezes Cardio S1 normal heart sound, S2 normal heart sound, no murmurs, no rub, no gallops and no clicks Cardio Narrative: Irregular irregular with controlled rate currently GI normal to inspection, nondistended, normoactive bowel sounds and soft to palpation GI Narrative: Minimally tender in the right upper quadrant with drain in place Extremity Extremity Narrative: Chronic lower extremity edema, no cyanosis or clubbing Neuro moves all extremities and no focal motor deficits Neuro Narrative: Significant generalized weakness-proximal greater than distal noted Speech: speech normal Psych affect normal Psych Narrative: Pleasant, no signs of agitation or anxiety Assessment & Plan Assessment/Plan (1) Sepsis: (2) Acute cholecystitis: PLAN: Plan Sepsis secondary to acute cholecystitis/possible aspiration pneumonia - Status post percutaneous colostomy tube - Continue antimicrobials with ceftriaxone and Flagyl per infectious disease - Per infectious disease will need antibiotics through 11/08/2024 and can be transition to oral at discharge if p.o. intake is adequate - Perc drain per general surgery with outpatient follow-up - Currently not surgical candidate but will follow from surgical standpoint to see if he would be a candidate in the future - Sepsis syndrome has resolved - Patient was on room air Acute hypoxic respiratory failure - Resolved - Stable on room air Dysphagia - Acute on chronic - Continue modified diet per speech therapy - Continue speech therapy intervention now and at discharge to transitional care unit Atrial fibrillation with RVR - Cardiology is following-appreciate input - Continue apixaban and beta-mattie - Patient still with intermittent tachycardia -Will give an amiodarone bolus and start oral amiodarone 200 mg 3 times daily for a week and then transition to twice daily for a week then daily - Continue to monitor on telemetry Hypomagnesemia/hypophosphatemia - K-Phos bolus - Mag bolus - Recheck labs in a.m. Toxic/metabolic encephalopathy - Much closer to baseline today - Continue scheduled risperidone and melatonin - Transfer out of the ICU to minimize delirium CKD stage IIIa - Serum creatinine is stable Urinary retention - Patient will need to maintain Kern at the time of discharge per discussion with urology - Patient is to follow-up outpatient with his primary urologist in [place] DM-2 - Hold oral regimen is on hold next-continue Accu-Cheks as ordered - Continue SSI - A1c was 6.3 - Fasting blood sugar shows good control at 136 Essential hypertension - Beta-mattie as ordered - Discontinue diltiazem - Blood pressure is relatively stable right now so we will continue to hold home losartan for now and follow - Reassess in a.m. 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
[2024-11-02] MEDS: Magnesium Sulfate 2 GM in Dextrose 5%-Water (100mL Bag) 100 ML IV (07:58)
[2024-11-02] MEDS: Amiodarone 150 MG in Dextrose 5%-Water (100mL Bag) 100 ML 600 MG IV BOLUS (08:10)
[2024-11-02] MEDS: Potassium Phosphate 45 MM in 0.9% Normal Saline (500mL Bag) 500 ML 85 MM IV (08:24)
[2024-11-02] MEDS: Lactobacillis Acidophilus 1 CAP PO (08:29)
[2024-11-02] MEDS: Senna/Docusate Sodium 1 Tablet 2 TABLET PO ×2 (08:30→20:47)
[2024-11-02] MEDS: APIXABAN 5 MG TABLET PO ×2 (08:30→21:02)
--- NOTE | 2024-11-02 09:21 | CASEMGMT ---
Addendum entered by Maurisio Kirk 11/02/24 09:48: TCU corporate fitness program coordinator states that they are unable to review the referral until Tuesday due to the pt's recent agitation and Haldol administration. RN CM to the pt room at this time. Pt sitting up in the chair with pt's at bedside. Pt is more alert and oriented today and is calm. Explained to the pt and pt's that TCU cannot review the referral until Tuesday. This lyric writer encouraged the pt's to select a couple other SNFs so referrals can be made today and then the precert process can be initiated potentially. However, pt's is adamant the pt goes to [facility] @ [place] and declines wanting to give this RN CM other SNF preferences. Pt's is understanding that it is not a guarantee that TCU can accept on Tuesday. Pt's states, I am willing to take that chance. Encouraged the again to review other SNF options in the case that TCU cannot accept on Tuesday. Pt's states understanding and denies further questions or concerns at this time. Hospitalist updated. Original Note: Dr Scott reports to initiate the referral process to TCU. Per ICU rounds, pt's states that she has not selected a second or third FOC yet as she prefers TCU at this time. Referral sent to the TCU construction project coordinator now. CM to follow.
[2024-11-02] MEDS: Ceftriaxone 2 GM in 0.9% Normal Saline (50mL MB+) 50 ML IV (09:51)
[2024-11-02] MEDS: Pantoprazole Sodium 40 MG in 0.9% Normal Saline (100mL MB+) 100 ML 330 MG IV (10:25)
--- NOTE | 2024-11-02 11:07 | VDUE_ITS ---
Reason For Study Reason For Study: Swelling BUE Right Proximal Left Proximal Right jugular vein is spontaneous, widely patent, Left jugular vein is spontaneous, widely patent, phasic, with no intraluminal echogenicity noted. phasic, with no intraluminal echogenicity noted. Right subclavian vein is spontaneous, widely patent, Left subclavian vein is spontaneous, widely patent, phasic, with no intraluminal echogenicity noted. phasic, with no intraluminal echogenicity noted. Right Lower Arm Left Arm Right radial vein is compressible. Left axillary vein is spontaneous, patent, phasic, Right ulnar vein is compressible. competent, compressible and demonstrates Right Arm augmentation. Right axillary vein is spontaneous, patent, phasic, Left brachial vein is compressible. competent, compressible and demonstrates Left cephalic vein is compressible. augmentation. Left basilic vein is compressible. Right brachial vein is compressible. Left Lower Arm Rt CephalicV at wrist is non compressible consistent Left radial vein is compressible. with acute SVT; remainder of Rt CephalicV is Left ulnar vein is compressible. compressible. Right basilic vein is compressible. Picc Line noted. VL/Venous Duplex US - Kobi Extrem Interpretation Summary Deep veins of the upper extremities are bilaterally patent and compressible seg mentally. There is no evidence of deep vein thrombosis on either side. Acute superficial thrombophlebitis is noted in the right cephalic vein at wrist level. The remainder of the right cephalic vein is patent and compressible. The right basilic vein is patent and compressible. The superficial veins of the left upper extremity, the basilic and cephalic vei ns, are patent and compressible. There is no evidence of left upper extremity superficial thrombophlebitis involving the veins imaged. Ordering Physician: Genia Scott Referring Physician: Dipak Aguilar Performed By: Massiel Martinez, ANUPAMA, RVT ???
[2024-11-02] MEDS: MELATONIN 10 MG TABLET PO (20:47)
[2024-11-02] MEDS: 0.9% Saline Lock 10 ML Syringe IV ×2 (21:24→22:45)
--- NOTE | 2024-11-02 22:00 | RAD_ITS ---
PROCEDURE: CHEST 1 VIEW (PORTABLE) 11/02/2024 REASON FOR EXAM: INCREASED WORK OF BREATHING, RESP SANA TECHNIQUE: Frontal view of the chest. COMPARISON: 10/28/2024 FINDINGS: Hardware: Right-sided PICC line unchanged. Heart: The heart size is normal. Lungs: Grossly unchanged bilateral pulmonary opacities. Left basilar platelike atelectasis. No definite pneumothorax. Bones: Degenerative changes are identified within the thoracic spine. RAD/Chest 1 View (Portable) IMPRESSION: No significant interval change. Reading Location: [facility] [place]
--- NOTE | 2024-11-02 22:19 | PCM.HOSP.N ---
Hospitalist Note 2225 While rounding, noted telemetry alarming for severe tachycardia and Afib with ventricular rate of 165. Assessed pt and found coarse rales throughout as well as oral secretions pocketed, cleared with kaley rojas. Bedside RN placed him on oxygen via NC due to p.ox 83% on RmAir, RR 32, BP 160/118. STAT portable CXR done, image reviewed at bedside by myself with pulmonary congestion without effusion, placed orders for 40mg furosemide IV x1, BiPAP, ABG, pro-BNP. No acute or chronic renal dysfunction noted on labs, echo completed this admission demonstrated EF 70%, trivial mitral valve insufficiency, right and left atria are mildly enlarged. Pt just received HS meds including: metoprolol 50mg, amiodarone 200mg. Pt received PRN metoprolol 5mg IV at 1855. Reviewed all information with Dr. Mcclure, who then advised digoxin 500mcg IV x1, giving 250mcg now and waiting 10minutes to give remaining 250mcg. Pt's at bedside, discussed care/interventions at length. Her only question was regarding an ultrasound done on his edematous upper extremity earlier today which has not resulted. 2240 ABG results reviewed, grossly insignificant considering pt's presentation. Furosemide and digoxin given. RR25, HR 102, p.ox 95% on BiPAP 12/6 w/ 40% FiO2.
[2024-11-02] MEDS: Digoxin 250 MCG/ML Ampul 500 MCG IV (22:22)
[2024-11-02 22:42] LABS: Allen Test Positive; Base Excess 1 mmol/L (-2 to +2); FI02 40.0; PEEP 6; PIP 12; PO2 78 mmHG (75-100); RR 12; SITE R Radial; SO2 96 % (95-99)
[2024-11-03] VITALS (22 sets, daily range): BP systolic 90–162; BP diastolic 57–99; PULSE 69–94; RESP 12–27; TEMP 36.1–37.3; O2SAT 90–98; BMI 30.4
[2024-11-03 00:07] LABS: Pro- Brain NATRIURETIC PEPTIDE 6060 pg/mL (<=1800)
[2024-11-03] MEDS: metroNIDAZOLE 500 MG/100 ML BAG 100 MG IV ×3 (06:12→21:57)
[2024-11-03 06:16] LABS: Hematocrit 38.7 % (40-54); Hemoglobin 13.0 g/dL (13.0-16.5); Mean Corp Hgb Conc 33.6 g/dL (32-36); Mean Corpuscular Volume 87.0 fL (80-94); Mean Platelet Vol. 10.0 fl (6.2-12.0); Platelet Count 197 K/mm3 (150-450); RBC Distribution Width CV 15.4 % (11.6-14.6); RBC Distribution Width SD 49.1 fl (35.1-43.9); Red Blood Count 4.45 M/mm3 (4.6-6.2); White Blood Count 16.4 K/mm3 (4.4-11.0)
[2024-11-03 06:53] LABS: Anion Gap 13 (5-15); BUN 18 mg/dL (4-19); BUN/Creat Ratio 13.4 RATIO (10-20); Calcium,Total 9.1 mg/dL (7.6-11.0); Carbon Dioxide 21.7 mmol/L (21.0-32.0); Chloride 108 mmol/L (98-108); Estimated Creatinine Clearance 46.05 ml/min (50-250); Glucose 107 mg/dL (70-99); Magnesium 1.7 mg/dL (1.5-2.2); Potassium 3.9 mmol/L (3.3-5.1)
--- NOTE | 2024-11-03 07:21 | PN.HOSP_ITS ---
Reason for Visit Chief Complaint: Abdominal pain, N/V. Subjective Subjective Issues from overnight noted. Oxygen has been able to be weaned. No complaints. Patient did tolerate BiPAP well. Objective Data Objective Data Vital Signs: Vital Signs Temp Pulse Resp BP Pulse Ox O2 Del Method O2 Flow Rate 97 F L 84 24 H 131/69 H 97 Bi-pap 4 11/03/24 02:00 11/03/24 06:13 11/03/24 05:00 11/03/24 06:13 11/03/24 05:00 11/03/24 05:00 11/02/24 22:25 FiO2 35 11/03/24 05:00 Oxygen Flow Rate (L/min) 4 Oxygen Delivery Method Bi-pap Weight: 102 kg Body Mass Index (BMI) 30.4 Intake & Output: Intake and Output for Last 24 Hours 11/01/24 11/02/24 11/03/24 23:59 23:59 23:59 Intake Total 2550 / 2550 1617.5 / 1617.5 30 / 30 Output Total 1330 / 1330 930 / 930 1800 / 1800 Balance 1220 / 1220 687.5 / 687.5 -1770 / -1770 Lab / Micro Data 11/03/24 05:40 11/03/24 05:40 Labs: Laboratory Results - last 24 hr 11/02/24 07:41: POC Glucose 96 11/02/24 11:19: POC Glucose 121 H 11/02/24 15:57: POC Glucose 108 H 11/02/24 21:50: POC Glucose 109 H 11/02/24 23:22: NT pro BNP II 6060 H 11/03/24 05:40: WBC 16.4 H, RBC 4.45 L, Hgb 13.0, Hct 38.7 L, MCV 87.0, MCH 29.2, MCHC 33.6, RDW Std Deviation 49.1 H, RDW Coeff of Pollo 15.4 H, Plt Count 197, MPV 10.0, Sodium 142, Potassium 3.9, Chloride 108, Carbon Dioxide 21.7, Anion Gap 13, BUN 18, Creatinine 1.37 H, Estim Creat Clear Calc 46.05 L, Est GFR (MDRD) Non-Af 50 L, BUN/Creatinine Ratio 13.4, Glucose 107 H, Calcium 9.1, Phosphorus 3.1, Magnesium 1.7 11/03/24 06:09: POC Glucose 102 Micro: Microbiology 11/02/24 04:54 Sputum, Expectorated/Coughed Gram Stain - Final 10/29/24 Unknown Fluid - Gallbladder Gram Stain - Final 10/29/24 Unknown Fluid - Gallbladder Body Fluid Culture - Final Escherichia coli Klebsiella oxytoca 10/29/24 Unknown Fluid - Gallbladder Anaerobic Culture - Final Anaerobic cocci Clostridium perfringens 10/26/24 15:55 Blood Culture (Wb) - Arm Right Blood Culture - Final No growth in 5 days. 10/26/24 15:55 Blood Culture (Wb) - Arm Left Blood Culture - Final No growth in 5 days. 10/27/24 09:24 Mucosa - Nasopharyngeal Coronavirus COVID-19 PCR - Final 10/27/24 01:25 Nasal Secretion MRSA (PCR) - Final 10/27/24 00:52 Mucosa - Nasopharyngeal Respiratory Panel (PCR) - Final 10/27/24 02:25 Urine, Random Legionella Antigen - Final 10/27/24 02:25 Urine, Random Streptococcus pneumoniae Antigen (M - Final ABG Data ABG results: ABG 11/02/24 22:39 Specimen Type ART Sample Site R Radial pH 7.48 H Bicarbonate Actual 24.2 Total CO2 25 Base Excess 1 O2 Saturation 96 O2 % 40.0 ABG pCO2 32.8 L ABG pO2 78 Bronson Test Positive Respiration Rate 12 O2 Delivery Device BiPAP Vent Mode Not entered POC PEEP 6 Peak Inspir Pressure 12 Radiography Diagnostic Testing: Radiology Impression Venous Doppler Study 11/02/24 11:07 Interpretation Summary Deep veins of the upper extremities are bilaterally patent and compressible segmentally. There is no evidence of deep vein thrombosis on either side. Acute superficial thrombophlebitis is noted in the right cephalic vein at wrist level. The remainder of the right cephalic vein is patent and compressible. The right basilic vein is patent and compressible. The superficial veins of the left upper extremity, the basilic and cephalic veins, are patent and compressible. There is no evidence of left upper extremity superficial thrombophlebitis involving the veins imaged. Ordering Physician: Genia Scott Referring Physician: Dipak Aguilar Performed By: Massiel Martinez, ANUPAMA, RVT ??? Chest X-Ray 11/02/24 22:00 IMPRESSION: No significant interval change. Reading Location: [facility] Rhythm Strip Rhythm Strip: A-fib Rate: 90 Social Homelessness:: Sheltered Physical Exam Const alert, no apparent distress and well nourished; Negative for oriented x3, average body habitus or healthy appearing Constitutional Narrative: Overweight, elderly, white male, sitting up in a chair at the bedside awake and interactive, is at the bedside, appears comfortable, nontoxic, oriented times self and intermittently place but not time follows commands consistently HEENT head/scalp atraumatic and moist oral mucous membranes Head and Scalp: normocephalic Eyes conjunctivae normal Eyes Narrative: No scleral icterus Resp normal respiratory effort, no retractions, no use of accessory muscles and clear to auscultation bilaterally Resp Narrative: Crackles in the left base Auscultation: crackles; Negative for rales, rhonchi or wheezes Cardio S1 normal heart sound, S2 normal heart sound, no murmurs, no rub, no gallops and no clicks Cardio Narrative: Irregular irregular with controlled rate currently GI normal to inspection, nondistended, normoactive bowel sounds, soft to palpation and non-tender GI Narrative: PERI drain with nonpurulent fluid Extremity Extremity Narrative: Chronic lower extremity edema, no cyanosis or clubbing, left upper extremity edema Neuro moves all extremities and no focal motor deficits Neuro Narrative: Significant generalized weakness-proximal greater than distal noted Speech: speech normal Psych affect normal Psych Narrative: Pleasant, no signs of agitation or anxiety Assessment & Plan Assessment/Plan (1) Sepsis: (2) Acute cholecystitis: PLAN: Plan Sepsis secondary to acute cholecystitis/possible aspiration pneumonia - Status post percutaneous colostomy tube - Continue antimicrobials with ceftriaxone and Flagyl per infectious disease - Per infectious disease will need antibiotics through 11/08/2024 and can be transition to oral at discharge if p.o. intake is adequate - Perc drain per general surgery with outpatient follow-up - Currently not surgical candidate but will follow from surgical standpoint to see if he would be a candidate in the future - Sepsis syndrome has resolved - Discussed with general surgery Acute hypoxic respiratory failure - Patient with issue overnight suspect related to possible aspiration and volume overload from sepsis treatment -Was given IV Lasix x 1 dose and seems to be doing better -Was on 3 L at the time my arrival with sats at 96 to 97% so therefore decreased to 2 L -Continue to wean as able - Recommend ongoing aggressive pulmonary toilet - Discussed with to push him for incentive spirometry and Acapella however she states this is difficult - Continue speech therapy as recurrent aspiration is going to be an ongoing concern - Will restart home Lasix and monitor renal function closely Edema - Predominantly left upper extremity - Dopplers are unremarkable - Likely related to volume resuscitation with sepsis Dysphagia - Acute on chronic - Continue modified diet per speech therapy - The patient does struggle with complying to utilize strategies to prevent aspiration and therefore extremely high risk for recurrent aspiration pneumonitis and pneumonia - Continue speech therapy intervention now and at discharge to transitional care unit Atrial fibrillation with RVR - Cardiology is following-appreciate input - Continue apixaban and beta-mattie - Heart rates better after amiodarone bolus -Currently on oral amiodarone 3 times daily which we will continue for total of 7 days, then amiodarone 200 twice daily for 7 days then amiodarone daily - Continue to monitor on telemetry - Will need outpatient cardiology follow-up after discharge CKD stage IIIb - Baseline creatinine seems to run between 1.3 and 1.5 - Had dropped some with volume resuscitation but back up to baseline with diuretics last night - Continue to monitor as we have added back scheduled oral diuretics - avoid nephrotoxins as able Hypomagnesemia/hypophosphatemia - Resolved Toxic/metabolic encephalopathy with underlying dementia - Seems to be at baseline - Continue scheduled risperidone and melatonin -Seems to be doing well with this regimen and would recommend discharge to TCU with these - Slowly improving CKD stage IIIa - Serum creatinine is stable Urinary retention - Patient will need to maintain Kern at the time of discharge per discussion with urology - Patient is to follow-up outpatient with his primary urologist in [place]--> Dr. Issa DM-2 - Hold oral regimen is on hold next-continue Accu-Cheks as ordered - Continue SSI - A1c was 6.3 - Fasting blood sugar shows good control at 136 Essential hypertension - Beta-mattie as ordered - Reassess in a.m. 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 PPI as ordered History of tobacco abuse - Remote DVT prophylaxis - Continue Eliquis CODE STATUS - Full code as verified on admission - Hospice and palliative care was consulted and was dismissed by the family Charges/Coding Visit Charges Inpatient E&M: 45457 Subs Hosp L2 Date medically ready for discharge: 11/02/24 Delay Comments: Awaiting acceptance from transitional care unit then will need [id number] due to IV Haldol being given
[2024-11-03] MEDS: Ipratropium 0.5 MG/2.5 ML SOLUTION INHALATION ×3 (07:22→20:37)
[2024-11-03] MEDS: Budesonide Respules 0.5 MG/2 ML AMPUL.NEB. INHALATION ×2 (07:22→20:37)
--- NOTE | 2024-11-03 07:45 | NURSING ---
In to assess pt orthostatic VS with x2 RN. See ortho charting. Pt became very dizzy, pale. Assisted back into bed and placed into trendelenberg. No ectopy noted on telemetry. BP reassessed. Pt stated he is now feeling better, not as dizzy. Dr Scott made aware.
[2024-11-03] MEDS: Lactobacillis Acidophilus 1 CAP PO (11:41)
[2024-11-03] MEDS: APIXABAN 5 MG TABLET PO ×2 (11:41→21:58)
[2024-11-03] MEDS: Senna/Docusate Sodium 1 Tablet 2 TABLET PO ×2 (11:41→21:59)
[2024-11-03] MEDS: Ceftriaxone 2 GM in 0.9% Normal Saline (50mL MB+) 50 ML IV (12:09)
[2024-11-03] MEDS: guaiFENesin 10 ML UDC (200MG/10ML) PO ×2 (12:12→15:15)
[2024-11-03] MEDS: MELATONIN 10 MG TABLET PO (21:57)
[2024-11-04] VITALS (11 sets, daily range): BP systolic 113–152; BP diastolic 62–109; PULSE 80–108; RESP 18–24; TEMP 36.4–36.7; O2SAT 91–95; BMI 29.6
[2024-11-04] MEDS: metroNIDAZOLE 500 MG/100 ML BAG 100 MG IV ×3 (05:48→22:22)
[2024-11-04] MEDS: Ipratropium 0.5 MG/2.5 ML SOLUTION INHALATION ×3 (07:24→20:25)
[2024-11-04] MEDS: Budesonide Respules 0.5 MG/2 ML AMPUL.NEB. INHALATION ×2 (07:24→20:25)
[2024-11-04 08:06] LABS: Differential Indicated MANUAL DIFF; Hematocrit 37.0 % (40-54); Hemoglobin 12.8 g/dL (13.0-16.5); Mean Corp Hgb Conc 34.6 g/dL (32-36); Mean Corpuscular Volume 86.9 fL (80-94); Mean Platelet Vol. 10.0 fl (6.2-12.0); POSITIVE COUNT YES; POSITIVE MORPHOLOGY YES; Platelet Count 206 K/mm3 (150-450); RBC Distribution Width CV 15.7 % (11.6-14.6); RBC Distribution Width SD 49.4 fl (35.1-43.9); Red Blood Count 4.26 M/mm3 (4.6-6.2); White Blood Count 14.9 K/mm3 (4.4-11.0)
[2024-11-04 08:37] LABS: Neutrophil-Band 2 % (0-5); Neutrophil-Segmented 85 % (47-70); Red Cell Morphology NORM C+C NORMAL (NORM C&C); Total Cells Counted 100 (MANUAL DIFF)
[2024-11-04 08:50] LABS: AST(SGOT) 43 U/L (<=37); Alanine Aminotransfer ALT/SGPT 49 U/L (<=46); Albumin, Serum 2.6 g/dL (3.4-4.8); Alkaline Phosphatase 185 U/L (40-129); Anion Gap 12 (5-15); BUN 22 mg/dL (4-19); BUN/Creat Ratio 15.3 RATIO (10-20); Calcium,Total 9.4 mg/dL (7.6-11.0); Carbon Dioxide 23.6 mmol/L (21.0-32.0); Chloride 106 mmol/L (98-108); Estimated Creatinine Clearance 44.15 ml/min (50-250); Globulin 2.9 g/dL (2.2-4.2); Glucose 92 mg/dL (70-99); Potassium 3.5 mmol/L (3.3-5.1)
[2024-11-04] MEDS: APIXABAN 5 MG TABLET PO ×2 (10:33→21:46)
[2024-11-04] MEDS: Lactobacillis Acidophilus 1 CAP PO (10:34)
[2024-11-04] MEDS: Ceftriaxone 2 GM in 0.9% Normal Saline (50mL MB+) 50 ML IV (10:35)
[2024-11-04] MEDS: guaiFENesin 10 ML UDC (200MG/10ML) PO (10:38)
--- NOTE | 2024-11-04 13:05 | PCM.PN.HOSP ---
Reason for Visit Chief Complaint: Abdominal pain, N/V. Subjective Subjective Patient states he feels like he has to have a bowel movement and cannot. He is already on Dulcolax suppositories and scheduled senna. Suppository just placed so he is waiting to have a bowel movement. Breathing seems to be better overall. No other complaints at this time. Family states that his nights have been much improved since starting the risperidone and the melatonin.. Objective Data Objective Data Vital Signs: Vital Signs Temp Pulse Resp BP Pulse Ox O2 Del Method O2 Flow Rate 98.0 F 108 H 18 113/67 93 Nasal Cannula 2 11/04/24 09:54 11/04/24 09:54 11/04/24 09:54 11/04/24 09:54 11/04/24 09:54 11/04/24 09:54 11/04/24 09:54 FiO2 35 11/03/24 12:00 Oxygen Flow Rate (L/min) 2 Oxygen Delivery Method Nasal Cannula Weight: 99.1 kg Body Mass Index (BMI) 29.6 Intake & Output: Intake and Output for Last 24 Hours 11/02/24 11/03/24 11/04/24 23:59 23:59 23:59 Intake Total 1617.5 / 1617.5 575.08 / 575.08 150 / 150 Output Total 930 / 930 2480 / 3280 1340 / 1340 Balance 687.5 / 687.5 -1904.92 / -2704.92 -1190 / -1190 Lab / Micro Data 11/04/24 07:42 11/04/24 07:42 Labs: Laboratory Results - last 24 hr 11/03/24 17:41: POC Glucose 100 11/03/24 21:51: POC Glucose 105 11/04/24 06:08: POC Glucose 90 11/04/24 07:42: WBC 14.9 H, RBC 4.26 L, Hgb 12.8 L, Hct 37.0 L, MCV 86.9, MCH 30.0, MCHC 34.6, RDW Std Deviation 49.4 H, RDW Coeff of Pollo 15.7 H, Plt Count 206, MPV 10.0, Neut % (Auto) Not Reportable, Absolute Neuts (auto) 13.0 H, Absolute Lymphs (auto) 0.75 L, Total Counted 100, Neutrophils % (Manual) 85 H, Band Neutrophils % 2, Lymphocytes % (Manual) 5 L, Monocytes % (Manual) 4, Eosinophils % (Manual) 2, Metamyelocytes % 2 H, Platelet Estimate ADEQUATE, RBC Morphology NORM C+C, Sodium 141, Potassium 3.5, Chloride 106, Carbon Dioxide 23.6, Anion Gap 12, BUN 22 H, Creatinine 1.41 H, Estim Creat Clear Calc 44.15 L, Est GFR (MDRD) Non-Af 48 L, BUN/Creatinine Ratio 15.3, Glucose 92, Calcium 9.4, Total Bilirubin 0.79, AST 43 H, ALT 49 H, Alkaline Phosphatase 185 H, Total Protein 5.5 L, Albumin 2.6 L, Globulin 2.9, Albumin/Globulin Ratio 0.9 11/04/24 10:40: POC Glucose 90 Micro: Microbiology 11/02/24 04:54 Sputum, Expectorated/Coughed Gram Stain - Final 11/02/24 04:54 Sputum, Expectorated/Coughed Respiratory Culture - Preliminary Yeast Like Organism 10/29/24 Unknown Fluid - Gallbladder Gram Stain - Final 10/29/24 Unknown Fluid - Gallbladder Body Fluid Culture - Final Escherichia coli Klebsiella oxytoca 10/29/24 Unknown Fluid - Gallbladder Anaerobic Culture - Final Anaerobic cocci Clostridium perfringens 10/26/24 15:55 Blood Culture (Wb) - Arm Right Blood Culture - Final No growth in 5 days. 10/26/24 15:55 Blood Culture (Wb) - Arm Left Blood Culture - Final No growth in 5 days. 10/27/24 09:24 Mucosa - Nasopharyngeal Coronavirus COVID-19 PCR - Final 10/27/24 01:25 Nasal Secretion MRSA (PCR) - Final 10/27/24 00:52 Mucosa - Nasopharyngeal Respiratory Panel (PCR) - Final 10/27/24 02:25 Urine, Random Legionella Antigen - Final 10/27/24 02:25 Urine, Random Streptococcus pneumoniae Antigen (M - Final Rhythm Strip Rhythm Strip: A-fib Rate: 90 Social Homelessness:: Sheltered Physical Exam Const alert, no apparent distress and well nourished; Negative for oriented x3, average body habitus or healthy appearing Constitutional Narrative: Overweight, elderly, white male, sitting up in a chair at the bedside awake and interactive, and daughter are at the bedside, appears uncomfortable as he is waiting to have bowel movement, nontoxic, oriented times self and intermittently place but not time follows commands consistently HEENT head/scalp atraumatic and moist oral mucous membranes Head and Scalp: normocephalic Eyes Eyes Narrative: No scleral icterus Resp normal respiratory effort, no retractions, no use of accessory muscles and No clear to auscultation bilaterally Resp Narrative: Few remaining crackles in the left base Auscultation: crackles; Negative for rales, rhonchi or wheezes Cardio regular rate, S1 normal heart sound, S2 normal heart sound, no murmurs, no rub, no gallops and no clicks Cardio Narrative: Irregular irregular GI normal to inspection, nondistended, normoactive bowel sounds, soft to palpation and non-tender GI Narrative: PERI drain with nonpurulent fluid Extremity Extremity Narrative: Chronic lower extremity edema, no cyanosis or clubbing, left upper extremity edema-this appears to be improving slowly Neuro moves all extremities and no focal motor deficits Neuro Narrative: Significant generalized weakness-proximal greater than distal noted Speech: speech normal Psych affect normal Psych Narrative: Pleasant, no signs of agitation or anxiety Assessment & Plan Assessment/Plan (1) Sepsis: (2) Acute cholecystitis: PLAN: Plan Sepsis secondary to acute cholecystitis/possible aspiration pneumonia - Status post percutaneous colostomy tube - Continue antimicrobials with ceftriaxone and Flagyl per infectious disease - Per infectious disease will need antibiotics through 11/08/2024 and can be transition to oral at discharge if p.o. intake is adequate - Perc drain per general surgery with outpatient follow-up - Currently not surgical candidate but will follow from surgical standpoint to see if he would be a candidate in the future - Sepsis syndrome has resolved - Discussed with general surgery Acute hypoxic respiratory failure - Patient with issue overnight suspect related to possible aspiration and volume overload from sepsis treatment -Was given IV Lasix x 1 dose and seems to be doing better - Currently on room air to 2 L -Continue to wean as able - Recommend ongoing aggressive pulmonary toilet - Discussed with to push him for incentive spirometry and Acapella however she states this is difficult - Continue speech therapy as recurrent aspiration is going to be an ongoing concern - Will restart home Lasix and monitor renal function closely - Family is very aware that he has increased risk for recurrent aspiration pneumonia Edema - Predominantly left upper extremity-slowly improving with diuresis - Dopplers are unremarkable - Likely related to volume resuscitation with sepsis - Continue p.o. Lasix 40 mg daily and watch renal function closely Dysphagia - Acute on chronic - Continue modified diet per speech therapy - The patient does struggle with complying to utilize strategies to prevent aspiration and therefore extremely high risk for recurrent aspiration pneumonitis and pneumonia - Continue speech therapy intervention now and at discharge to transitional care unit - At significant risk for recurrent aspiration pneumonia-discussed with patient, , and daughter today at the bedside Atrial fibrillation with RVR - Cardiology is following-appreciate input - Continue apixaban and beta-mattie - Heart rates better after amiodarone bolus -Currently on oral amiodarone 3 times daily which we will continue for total of 7 days, then amiodarone 200 twice daily for 7 days then amiodarone daily - Continue to monitor on telemetry - Will need outpatient cardiology follow-up after discharge CKD stage IIIb - Baseline creatinine seems to run between 1.3 and 1.5 - Continue to monitor with ongoing diuresis - avoid nephrotoxins as able Toxic/metabolic encephalopathy with underlying dementia - Seems to be at baseline - Continue scheduled risperidone and melatonin -Seems to be doing well with this regimen and would recommend discharge to TCU with these--> orders placed on MAR - Slowly improving CKD stage IIIa - Serum creatinine is stable Urinary retention - Patient will need to maintain Kern at the time of discharge per discussion with urology - Patient is to follow-up outpatient with his primary urologist in [place]--> Dr. Issa--> discussed with patient and family and instructions placed in discharge orders DM-2 - Hold oral regimen is on hold next-continue Accu-Cheks as ordered - Continue SSI - A1c was 6.3 - Fasting blood sugar shows good control at 92 Essential hypertension - Beta-mattie as ordered - Reassess in a.m. 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 PPI as ordered History of tobacco abuse - Remote DVT prophylaxis - Continue Eliquis CODE STATUS - Full code as verified on admission - Hospice and palliative care was consulted and was dismissed by the family Charges/Coding Visit Charges Inpatient E&M: 84751 Subs Hosp L2 Date medically ready for discharge: 11/02/24 Delay Comments: Awaiting acceptance from transitional care unit then will need [id number] due to IV Haldol being given
[2024-11-04] MEDS: 0.9% Saline Lock 10 ML Syringe IV (21:44)
[2024-11-04] MEDS: MELATONIN 10 MG TABLET PO (21:45)
[2024-11-04] MEDS: Senna/Docusate Sodium 1 Tablet 2 TABLET PO (21:45)
[2024-11-05] VITALS (13 sets, daily range): BP systolic 113–153; BP diastolic 73–94; PULSE 67–81; RESP 20–23; TEMP 36.4–36.8; O2SAT 93–95; BMI 29.4
[2024-11-05 05:41] LABS: Hematocrit 35.0 % (40-54); Hemoglobin 11.7 g/dL (13.0-16.5); Mean Corp Hgb Conc 33.4 g/dL (32-36); Mean Corpuscular Volume 88.2 fL (80-94); Mean Platelet Vol. 10.1 fl (6.2-12.0); POSITIVE COUNT YES; POSITIVE MORPHOLOGY YES; Platelet Count 225 K/mm3 (150-450); RBC Distribution Width CV 15.4 % (11.6-14.6); RBC Distribution Width SD 49.2 fl (35.1-43.9); Red Blood Count 3.97 M/mm3 (4.6-6.2); White Blood Count 13.8 K/mm3 (4.4-11.0)
[2024-11-05 05:44] LABS: Differential Indicated MANUAL DIFF
[2024-11-05 06:05] LABS: Anion Gap 10 (5-15); BUN 22 mg/dL (4-19); BUN/Creat Ratio 14.5 RATIO (10-20); Calcium,Total 9.3 mg/dL (7.6-11.0); Carbon Dioxide 26.5 mmol/L (21.0-32.0); Chloride 105 mmol/L (98-108); Estimated Creatinine Clearance 40.84 ml/min (50-250); Glucose 93 mg/dL (70-99); Potassium 3.4 mmol/L (3.3-5.1)
[2024-11-05 06:14] LABS: Neutrophil-Band 2 % (0-5); Neutrophil-Segmented 86 % (47-70); Red Cell Morphology NORM C+C NORMAL (NORM C&C); Total Cells Counted 100 (MANUAL DIFF)
--- NOTE | 2024-11-05 06:24 | CPS ---
pt declined bipap
[2024-11-05] MEDS: metroNIDAZOLE 500 MG/100 ML BAG 100 MG IV ×3 (06:28→22:13)
[2024-11-05] MEDS: Budesonide Respules 0.5 MG/2 ML AMPUL.NEB. INHALATION ×2 (06:47→20:50)
[2024-11-05] MEDS: Ipratropium 0.5 MG/2.5 ML SOLUTION INHALATION ×3 (06:47→20:50)
[2024-11-05] MEDS: Ensure Plus High Protein 120 ML LIQUID PO ×2 (08:42→17:11)
--- NOTE | 2024-11-05 09:09 | CASEMGMT ---
Addendum entered by Maurisio Kirk 11/05/24 11:43: Hospitalist updated. Addendum entered by Maurisio Kirk 11/05/24 11:41: Notified TCU investor relations coordinator that updated PT/OT notes are in. TCU states that they are able to accept now and that precert has been submitted and is pending. Pt's notified. CM to follow. Addendum entered by Maurisio Kirk 11/05/24 09:38: TCU child care education coordinator states that the referral is not accepted or declined at this time and that they want to see how the pt does with PT today, prior to making a decision. RN CM to the pt's room and updated the pt and pt's who states understanding. Pt states that PT was to the room already and plans to come back after pt finishes breakfast. Pt also states that [place] is the second F[facility] if TCU is unable to accept. However, pt's is still adamant about the pt going to TCU. PT is aware. CM to follow. Original Note: See previous RN CM notes. Referral sent to TCU investor relations coordinator at this time.
[2024-11-05] MEDS: Ceftriaxone 2 GM in 0.9% Normal Saline (50mL MB+) 50 ML IV (09:27)
[2024-11-05] MEDS: APIXABAN 5 MG TABLET PO ×2 (09:28→22:06)
[2024-11-05] MEDS: Senna/Docusate Sodium 1 Tablet 2 TABLET PO (09:29)
[2024-11-05] MEDS: Lactobacillis Acidophilus 1 CAP PO (09:30)
--- NOTE | 2024-11-05 09:59 | CASEMGMT ---
Addendum entered by Tiffany Ulrich 11/05/24 11:45: Pt has been accepted by TCU and family wishes to proceed. [facility] asked to cancel referral. Tiffany Ulrich DC Planning Asst. Original Note: Discharge Planning Referral sent to [facility]. Tiffany Ulrich DC Planning Asst.
--- NOTE | 2024-11-05 10:39 | PCM.PN.HOSP ---
Reason for Visit Chief Complaint: Abdominal pain, N/V. Subjective Subjective Patient is an 89-year-old gentleman who has been on admission for 10 days. Admitted with sepsis secondary to acute cholecystitis as well as aspiration pneumonia. Patient has had a protracted stay complicated by encephalopathy Objective Data Objective Data Vital Signs: Vital Signs Temp Pulse Resp BP Pulse Ox O2 Del Method O2 Flow Rate 98.0 F 72 20 H 153/88 H 95 Nasal Cannula 2 11/05/24 08:22 11/05/24 08:22 11/05/24 08:22 11/05/24 08:22 11/05/24 08:22 11/05/24 08:34 11/05/24 08:34 FiO2 35 11/03/24 12:00 Oxygen Flow Rate (L/min) 2 Oxygen Delivery Method Nasal Cannula Weight: 98.5 kg Body Mass Index (BMI) 29.4 Intake & Output: Intake and Output for Last 24 Hours 11/03/24 11/04/24 11/05/24 23:59 23:59 23:59 Intake Total 575.08 / 575.08 525 / 525 100 / 100 Output Total 2480 / 3280 1720 / 1720 415 / 415 Balance -1904.92 / -2704.92 -1195 / -1195 -315 / -315 Lab / Micro Data 11/05/24 05:14 11/05/24 05:14 Labs: Laboratory Results - last 24 hr 11/04/24 10:40: POC Glucose 90 11/04/24 15:59: POC Glucose 114 H 11/04/24 21:42: POC Glucose 106 11/05/24 05:14: WBC 13.8 H, RBC 3.97 L, Hgb 11.7 L, Hct 35.0 L, MCV 88.2, MCH 29.5, MCHC 33.4, RDW Std Deviation 49.2 H, RDW Coeff of Pollo 15.4 H, Plt Count 225, MPV 10.1, Neut % (Auto) Not Reportable, Absolute Neuts (auto) 12.1 H, Absolute Lymphs (auto) 0.97, Total Counted 100, Neutrophils % (Manual) 86 H, Band Neutrophils % 2, Lymphocytes % (Manual) 7 L, Monocytes % (Manual) 2, Eosinophils % (Manual) 1, Metamyelocytes % 1, Myelocytes % 1 H, Platelet Estimate ADEQUATE, RBC Morphology NORM C+C, Sodium 141, Potassium 3.4, Chloride 105, Carbon Dioxide 26.5, Anion Gap 10, BUN 22 H, Creatinine 1.52 H, Estim Creat Clear Calc 40.84 L, Est GFR (MDRD) Non-Af 44 L, BUN/Creatinine Ratio 14.5, Glucose 93, Calcium 9.3 11/05/24 06:26: POC Glucose 87 Micro: Microbiology 11/02/24 04:54 Sputum, Expectorated/Coughed Gram Stain - Final 11/02/24 04:54 Sputum, Expectorated/Coughed Respiratory Culture - Final Yeast, not Carine albicans 10/29/24 Unknown Fluid - Gallbladder Gram Stain - Final 10/29/24 Unknown Fluid - Gallbladder Body Fluid Culture - Final Escherichia coli Klebsiella oxytoca 10/29/24 Unknown Fluid - Gallbladder Anaerobic Culture - Final Anaerobic cocci Clostridium perfringens 10/26/24 15:55 Blood Culture (Wb) - Arm Right Blood Culture - Final No growth in 5 days. 10/26/24 15:55 Blood Culture (Wb) - Arm Left Blood Culture - Final No growth in 5 days. 10/27/24 09:24 Mucosa - Nasopharyngeal Coronavirus COVID-19 PCR - Final 10/27/24 01:25 Nasal Secretion MRSA (PCR) - Final 10/27/24 00:52 Mucosa - Nasopharyngeal Respiratory Panel (PCR) - Final 10/27/24 02:25 Urine, Random Legionella Antigen - Final 10/27/24 02:25 Urine, Random Streptococcus pneumoniae Antigen (M - Final Rhythm Strip Rhythm Strip: A-fib Rate: 90 Social Homelessness:: Sheltered Physical Exam Narrative GENERAL: cooperative HEENT: Atraumatic; normocephalic EYES; Anicteric, Normal Conjunctiva NECK; supple, normal thyroid, RESPIRATORY: Diminished to auscultation CARDIOVASCULAR: Regular S1 S2, GI: soft, normoactive bowel sounds, : No Renal angle tenderness; EXTREMITIES: edema, no clubbing, MUSCULOSKELETAL: no muscle wasting NEURO: Awake; no lateralizing signs. SKIN: No Rash PSYCH; Flat affect Assessment & Plan Assessment/Plan (1) Sepsis: (2) Acute cholecystitis: PLAN: Plan Patient is an 89-year-old gentleman who has been on admission for 10 days. Admitted with sepsis secondary to acute cholecystitis as well as aspiration pneumonia. Patient has had a protracted stay complicated by encephalopathy 1. Sepsis ? Secondary to acute cholecystitis as well as suspected aspiration pneumonia and sepsis have since resolved 2. Acute cholecystitis ? Patient was deemed not a surgical candidate. Subsequently underwent Cholecystostomy tube. Cultures grew Klebsiella as well as E. coli ID recommended ceftriaxone as well as Flagyl 3. Aspiration pneumonia ? Managed with ceftriaxone and Flagyl 4. Acute hypoxic respiratory failure ? Due to combination of aspiration pneumonia as well as fluid overload management of aspiration pneumonia as discussed above patient also did receive IV Lasix and pulmonary toileting 5. 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 2D echo obtained did show EF of 70% with mildly enlarged left and right atrium with trivial mitral valve insufficiency. The estimated ejection fraction is 70 %.Patient is on furosemide 6. Paroxysmal atrial fibrillation Managed with apixaban beta-blockers as well as amiodarone 7. Dysphagia - Acute on chronic seen in consultation by speech therapy family apparently informed about continuous risk for aspiration 8. Acute kidney injury ? Patient creatinine on 11/01/2024 was 1.06 creatinine up to 1.52 of note patient has baseline CKD stage III. Will continue monitoring and avoid potential nephrotoxic medications 9. Acute metabolic encephalopathy ? Secondary to patient's sepsis as well as JENELLE appears to be resolving. 10. Diabetes mellitus type 2 ? Patient is on metformin at home held placed on Accu-Cheks AC and at bedtime with sliding scale coverage 11. Hypertension ? Blood pressure controlled, home medications continued with dose adjustment as needed 12. BPH with lower urinary obstructive symptoms - Patient did develop urinary retention Kern catheter placed patient started on Flomax with plans for patient to follow-up with primary urologist on discharge 13. Dyslipidemia ?Patient is on statin therapy, continued at home dose 14. 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 Patient is on apixaban 15. DVT prophylaxis ? On apixaban 16. Physical deconditioning ? Requested for PT OT eval and professor of social work to assist with discharge planning Time spent in the patient's overall evaluation,decision-making process, review of diagnostic data, adjustment of management, discussion with other providers, nursing nursing and ancillary staff involved in patient's care documentation, 50 Minutes Charges/Coding Visit Charges Inpatient E&M: 13421 Subs Hosp L3 Date medically ready for discharge: 11/02/24 Delay Comments: Awaiting acceptance from transitional care unit then will need [id number] due to IV Haldol being given
--- NOTE | 2024-11-05 11:56 | PCM.PN.ID ---
Physical Exam Narrative Feeling better, no fever, no abd pain, no n/v/d. Const no apparent distress General Appearance: cooperative Orientation / Consciousness: lethargic Resp Auscultation: rhonchi Cardio regular rate and regular rhythm GI soft to palpation, non-tender and non-distended Skin no rashes or lesions noted ID ID: Route of nutrition/ use of supplements: [] Nutritional Intake: [] IV Site: [] Kern Catheter: [] Assessment & Plan Assessment/Plan (1) Sepsis: (2) Acute cholecystitis: PLAN: Overall improved. Lauryn tube in place, surgery following. Recommend ceftriaxone and flagyl for now. Plan on 7 more days abx, stop date 11/08/24. Can change to po at discharge if he is able to tolerate. More awake today. Will follow
[2024-11-05] MEDS: 0.9% Saline Lock 10 ML Syringe IV (14:45)
[2024-11-05] MEDS: MELATONIN 10 MG TABLET PO (22:06)
[2024-11-06] VITALS (7 sets, daily range): BP systolic 108–144; BP diastolic 58–81; PULSE 69–79; RESP 16–20; TEMP 36.3–36.6; O2SAT 93–96
[2024-11-06] MEDS: metroNIDAZOLE 500 MG/100 ML BAG 100 MG IV (06:22)
[2024-11-06] MEDS: 0.9% Saline Lock 10 ML Syringe IV ×2 (06:26→09:21)
[2024-11-06] MEDS: Budesonide Respules 0.5 MG/2 ML AMPUL.NEB. INHALATION (07:06)
[2024-11-06] MEDS: Ipratropium 0.5 MG/2.5 ML SOLUTION INHALATION ×2 (07:06→12:45)
--- NOTE | 2024-11-06 07:10 | PCM.PN.SRG ---
Subjective Subjective Patient evaluated resting comfortably in bed. His is at bedside. Patient denies any right upper quadrant pain. Objective Data Objective Data Vital Signs: Vital Signs Temp Pulse Resp BP Pulse Ox O2 Del Method O2 Flow Rate 97.4 F L 79 20 H 126/66 H 94 Nasal Cannula 2 11/06/24 06:16 11/06/24 07:07 11/06/24 07:07 11/06/24 06:32 11/06/24 07:07 11/06/24 07:07 11/06/24 07:07 FiO2 35 11/03/24 12:00 Oxygen Flow Rate (L/min) 2 Oxygen Delivery Method Nasal Cannula Weight: 217 lb 2.485 oz Body Mass Index (BMI) 29.4 Intake & Output: Intake and Output for Last 24 Hours 11/04/24 11/05/24 11/06/24 23:59 23:59 23:59 Intake Total 525 / 525 570 / 570 Output Total 1720 / 1720 1710 / 1710 210 / 210 Balance -1195 / -1195 -1140 / -1140 -210 / -210 Lab / Micro Data 11/05/24 05:14 11/05/24 05:14 Micro: Microbiology 11/02/24 04:54 Sputum, Expectorated/Coughed Gram Stain - Final 11/02/24 04:54 Sputum, Expectorated/Coughed Respiratory Culture - Final Yeast, not Carine albicans 10/29/24 Unknown Fluid - Gallbladder Gram Stain - Final 10/29/24 Unknown Fluid - Gallbladder Body Fluid Culture - Final Escherichia coli Klebsiella oxytoca 10/29/24 Unknown Fluid - Gallbladder Anaerobic Culture - Final Anaerobic cocci Clostridium perfringens 10/26/24 15:55 Blood Culture (Wb) - Arm Right Blood Culture - Final No growth in 5 days. 10/26/24 15:55 Blood Culture (Wb) - Arm Left Blood Culture - Final No growth in 5 days. 10/27/24 09:24 Mucosa - Nasopharyngeal Coronavirus COVID-19 PCR - Final 10/27/24 01:25 Nasal Secretion MRSA (PCR) - Final 10/27/24 00:52 Mucosa - Nasopharyngeal Respiratory Panel (PCR) - Final 10/27/24 02:25 Urine, Random Legionella Antigen - Final 10/27/24 02:25 Urine, Random Streptococcus pneumoniae Antigen (M - Final Rhythm Strip Rhythm Strip: A-fib Rate: 90 Social Homelessness:: Sheltered Physical Exam GI GI Narrative: Abdomen- soft, nontender. Cholecystostomy tube in place with bilious fluid within the bulb. Assessment & Plan Assessment/Plan (1) Acute cholecystitis: PLAN: I am following this patient in conjunction with Dr. Cavazos. Continue IV antibiotics according to I.D recommendation Awaiting pre-cert for acceptance to TCU Dr. Cavazos will follow-up with the patient in 1-2 weeks to discuss future treatment plan We will continue to monitor patient as needed Charges/Coding Visit Charges Inpatient E&M: 20636 Subs Hosp L2
[2024-11-06] MEDS: Senna/Docusate Sodium 1 Tablet 2 TABLET PO (08:53)
[2024-11-06] MEDS: Lactobacillis Acidophilus 1 CAP PO (08:53)
[2024-11-06] MEDS: APIXABAN 5 MG TABLET PO (08:54)
[2024-11-06] MEDS: Ensure Plus High Protein 120 ML LIQUID PO (09:14)
--- NOTE | 2024-11-06 09:15 | CASEMGMT ---
Addendum entered by Maurisio Kirk 11/06/24 09:26: RN CM to the pt's room at this time and notified pt and pt's who states appreciate and deny further questions or concerns at this time. Original Note: TCU log operations coordinator states to this RN CM that precert has been obtained as of 1222 this morning. Hospitalist notified. CM to follow.
[2024-11-06] MEDS: Ceftriaxone 2 GM in 0.9% Normal Saline (50mL MB+) 50 ML IV (09:21)
--- NOTE | 2024-11-06 09:30 | TREXTCAR_ITS ---
Diet Diet Order/Speech Therapy: INPATIENT Hospital Diet / Speech Therapy Order(s) 11/01/24 11:42 Diet: Regular - General Food consistency:: Soft & Bite Sized Liquid Consistency:: Regular/Thin Type of Dietary Supplement:: 4ozChoc Ensure+ all meals Speech Therapy Comments: TOTAL FEED BY STAFF, LIQUID BY TSP W/ CHIN TUCK, ALT BITES/SIPS 1:1 DC O2, CPAP, BIPAP needs Home O2 Discharge instructions: No Wound(s) r abd: Wound Type: drain Therapies Physical Therapy: Eval and Treat Occupational Therapy: Eval and Treat Problem/Diagnosis (1) Acute cholecystitis: Status: Acute Code(s): K81.0 - Acute cholecystitis Plan Patient is an 89-year-old gentleman who has been on admission for 10 days. Admitted with sepsis secondary to acute cholecystitis as well as aspiration pneumonia. Patient has had a protracted stay complicated by encephalopathy 1. Sepsis ? Secondary to acute cholecystitis as well as suspected aspiration pneumonia and sepsis have since resolved 2. Acute cholecystitis ? Patient was deemed not a surgical candidate. Subsequently underwent Cholecystostomy tube. Cultures grew Klebsiella as well as E. coli ID recommended ceftriaxone as well as Flagyl 3. Aspiration pneumonia ? Managed with ceftriaxone and Flagyl 4. Acute hypoxic respiratory failure ? Due to combination of aspiration pneumonia as well as fluid overload management of aspiration pneumonia as discussed above patient also did receive IV Lasix and pulmonary toileting 5. 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 2D echo obtained did show EF of 70% with mildly enlarged left and right atrium with trivial mitral valve insufficiency. The estimated ejection fraction is 70 %.Patient is on furosemide 6. Paroxysmal atrial fibrillation Managed with apixaban beta-blockers as well as amiodarone 7. Dysphagia - Acute on chronic seen in consultation by speech therapy family apparently informed about continuous risk for aspiration 8. Acute kidney injury ? Patient creatinine on 11/01/2024 was 1.06 creatinine up to 1.52 of note patient has baseline CKD stage III. Will continue monitoring and avoid potential nephrotoxic medications 9. Acute metabolic encephalopathy ? Secondary to patient's sepsis as well as JENELLE appears to be resolving. 10. Diabetes mellitus type 2 ? Patient is on metformin at home held placed on Accu-Cheks AC and at bedtime wi th sliding scale coverage 11. Hypertension ? Blood pressure controlled, home medications continued with dose adjustment as needed 12. BPH with lower urinary obstructive symptoms - Patient did develop urinary retention Kern catheter placed patient started on Flomax with plans for patient to follow-up with primary urologist on discharge 13. Dyslipidemia ?Patient is on statin therapy, continued at home dose 14. 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 Patient is on apixaban 15. DVT prophylaxis ? On apixaban 16. Physical deconditioning ? Requested for PT OT eval and [employer] social worker to assist with discharge planning Time spent in the patient's overall evaluation,decision-making process, review of diagnostic data, adjustment of management, discussion with other providers, nursing nursing and ancillary staff involved in patient's care documentation, 50 Minutes Allergies/Procedures Done in Hospital Allergies No Known Allergies Allergy (Verified 10/26/24 16:44) Type of Care/Length of Stay Estimated LOS: Convalescent Care Less Than 30 days Type of Care Needed: Skilled Rehab Potential: Good Prognosis: Good Additional Orders/Day of Discharge Day of Discharge: 11/06/24 Dietary and Speech Recommendations Dietitian Recommendations/Changes: Given inadequate oral intake at meals and well controlled blood glucose levels, will liberalize diet to Regular with consistency/texture as per ZONE MANAGER. Will add 120mL chocolate ensure plus HP w/ meals. Will add fortified pudding w/ lunch tray. Will add magic cup w/ dinner tray. Discharge Plan Admission Admit Date/Time: 10/26/24 22:50 Attending Provider: Ilan Contreras Primary Care Provider: Dipak Aguilar Consulting Providers: Fernanda Triplett; Khai Bose; Karlos Bella; Kenn Cavazos; Junito Knowles; Gerard Asencio; Genia Scott Instructions Patient Instructions: RAD RN Abscess Drainage, RAD RN Procedural Sedation Additional Instructions / Restrictions: 1. Please get an appointment within the next 2 weeks to follow-up with your urologist at [facility] Discharge Orders/Prescriptions Prescriptions: New amiodarone 200 mg Tablet 200 mg PO TID Qty: 0 0RF Rx Instructions: 200 mg 3 times daily until 11/07/2024 then decrease to 200 mg twice daily until 11/14/2024 then decrease to 200 mg daily and continue that indefinitely risperidone 0.5 mg Tablet 0.5 mg PO QHS Qty: 0 0RF melatonin 10 mg Tablet,Disintegrating 10 mg PO QHS Qty: 0 0RF acetaminophen 325 mg Tablet 650 mg PO Q4H PRN PRN (Reason: Fever, pain 1-11/30) Qty: 0 0RF sennosides-docusate sodium [Stimulant Laxative Plus] 8.6-50 mg Tablet 2 tab PO BID Qty: 0 0RF budesonide 0.5 mg/2 mL Suspension For Nebulization 0.5 mg inhalation BID.RT Qty: 0 0RF ipratropium bromide 0.02 % Solution 0.5 mg inhalation Q6HWA.RT Qty: 0 0RF Deep Sea Nasal 0.65 % Aerosol,Cecil 2 spray NASAL BID PRN PRN (Reason: NASAL DRYNESS) Qty: 0 0RF Ensure Plus High Protein 0.08 gram-1.5 kcal/mL Liquid 120 ml PO TIDCM Qty: 0 0RF cefdinir 300 mg capsule 300 mg PO BID Qty: 6 0RF metronidazole 500 mg tablet 500 mg PO TID 3 Days Qty: 9 0RF guaifenesin [Mucinex] 600 mg tablet extended release 12hr 1,200 mg PO BID Qty: 14 0RF Continued cholecalciferol (vitamin D3) 50 mcg (2,000 unit) tablet 50 mcg PO DAILY tadalafil 5 mg tablet 5 mg PO DAILY apixaban 5 mg tablet 5 mg PO BID Qty: 180 3RF multivitamin Tablet 1 tab PO QWEEK omeprazole 40 MG capsule 20 mg PO DAILY albuterol sulfate 90 mcg/actuation aerosol powdr breath activated 1 puff PO Q6H Patient Comments: INHALE 1 PUFF BY MOUTH 4 TIMES DAILY NEEDED omeprazole 20 mg capsule,delayed release(DR/EC) 20 mg PO DAILY Trelegy Ellipta 200-62.5-25 mcg blister with device 1 ea inhalation DAILY calcium carbonate-vitamin D3 600 mg-10 mcg (400 unit) tablet 1 tab PO DAILY Probiotic 10 billion cell capsule 10,000 mmu cells PO DAILY multivitamin [Daily Multi-Vitamin] Tablet 1 tab PO DAILY rosuvastatin 20 mg tablet 20 mg PO DAILY metformin 500 mg tablet 500 mg PO BID hydralazine 25 mg tablet PO ipratropium-albuterol 0.5 mg-3 mg(2.5 mg base)/3 mL solution for nebulization 3 ml inhalation TID magnesium 200 mg tablet 200 mg PO DAILY Changed furosemide 20 mg tablet 40 mg PO DAILY PRN (Reason: swelling) Qty: 30 0RF Patient Comments: take as needed for swelling , or weight gain of 3 pounds in one day Discontinued metoprolol tartrate 50 mg tablet 50 mg PO BID Qty: 180 3RF metoprolol tartrate 50 mg tablet 50 mg PO BID Eliquis 5 mg tablet 5 mg PO BID losartan 100 mg tablet 100 mg PO DAILY Referrals / Follow Up: Florencio Trent MD [Med Staff - Active Staff] - Within 1 Month Dipak Aguilar DO [Primary Care Provider] - Disposition Disposition (needs filled in before D/C Order can be placed): Group Home Facility
--- NOTE | 2024-11-06 09:37 | PCM.DC.SUM ---
Providers Date of Admission: 10/26/24 Date of Discharge: 11/06/24 Primary Care Physician: Dr. Dipak Aguilar, DO Consultations 10/27/24 00:32 Consult: General Surgery Routine Consulting Provider: Kenn Cavazos Reason for Consult: Acute cholecystitis EMERGENT Consult: No MD Notified: Yes Date Notified: 10/27/24 Time Notified: 00:02 Method of Notification: ED Physician Initiated Consult: I O Psychologist / Pulmonary Medicine Routine Consulting Provider: Pulmonary Medicine david [place] Reason for Consult: Sepsis, Acute Cholecystitis, ? PNA EMERGENT Consult: No MD Notified: Yes Date Notified: 10/27/24 Time Notified: 06:35 Method of Notification: Text 10/29/24 13:35 Consult: Urology Routine Consulting Provider: Gerard Asencio Reason for Consult: Been unable to void, difficult, coud? Kern with blood and clots. EMERGENT Consult: No MD Notified: Yes Date Notified: 10/29/24 Time Notified: 13:35 Method of Notification: Text 10/30/24 08:42 Consult: Inpatient Palliative Care Routine Consulting Provider: Airam Gottlieb Reason for Consult: Goals of care discussion EMERGENT Consult: No MD Notified: Yes Date Notified: 10/30/24 Time Notified: 09:16 Method of Notification: Text 10/31/24 08:22 Consult: Cardiology Routine Consulting Provider: Karlos Bella Reason for Consult: Afib RVR, uncontrolled EMERGENT Consult: No MD Notified: Yes Date Notified: 10/31/24 Time Notified: 08:22 Method of Notification: Text 10/31/24 08:24 Consult: Infectious Disease Routine Consulting Provider: Junito Knowles Reason for Consult: complicated cholecystitis, pnemonia, sepsis EMERGENT Consult: No MD Notified: Yes Date Notified: 10/31/24 Time Notified: 08:25 Method of Notification: Verbal Reason For Visit: SEPSIS, ACUTE CHOLECYSTITIS Diagnosis Discharge Diagnosis (1) Acute cholecystitis: Status: Acute Code(s): K81.0 - Acute cholecystitis Plan Patient is an 89-year-old gentleman who has been on admission for 10 days. Admitted with sepsis secondary to acute cholecystitis as well as aspiration pneumonia. Patient has had a protracted stay complicated by encephalopathy 1. Sepsis ? Secondary to acute cholecystitis as well as suspected aspiration pneumonia and sepsis have since resolved 2. Acute cholecystitis ? Patient was deemed not a surgical candidate. Subsequently underwent Cholecystostomy tube. Cultures grew Klebsiella as well as E. coli ID recommended ceftriaxone as well as Flagyl 3. Aspiration pneumonia ? Managed with ceftriaxone and Flagyl 4. Acute hypoxic respiratory failure ? Due to combination of aspiration pneumonia as well as fluid overload management of aspiration pneumonia as discussed above patient also did receive IV Lasix and pulmonary toileting 5. 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 2D echo obtained did show EF of 70% with mildly enlarged left and right atrium with trivial mitral valve insufficiency. The estimated ejection fraction is 70 %.Patient is on furosemide 6. Paroxysmal atrial fibrillation Managed with apixaban beta-blockers as well as amiodarone 7. Dysphagia - Acute on chronic seen in consultation by speech therapy family apparently informed about continuous risk for aspiration 8. Acute kidney injury ? Patient creatinine on 11/01/2024 was 1.06 creatinine up to 1.52 of note patient has baseline CKD stage III. Will continue monitoring and avoid potential nephrotoxic medications 9. Acute metabolic encephalopathy ? Secondary to patient's sepsis as well as JENELLE appears to be resolving. 10. Diabetes mellitus type 2 ? Patient is on metformin at home held placed on Accu-Cheks AC and at bedtime with sliding scale coverage 11. Hypertension ? Blood pressure controlled, home medications continued with dose adjustment as needed 12. BPH with lower urinary obstructive symptoms - Patient did develop urinary retention Kern catheter placed patient started on Flomax with plans for patient to follow-up with primary urologist on discharge 13. Dyslipidemia ?Patient is on statin therapy, continued at home dose 14. 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 Patient is on apixaban 15. DVT prophylaxis ? On apixaban 16. Physical deconditioning ? Requested for PT OT eval and social and human services assistant to assist with discharge planning Time spent in the patient's overall evaluation,decision-making process, review of diagnostic data, adjustment of management, discussion with other providers, nursing nursing and ancillary staff involved in patient's care documentation, 50 Minutes Medications at Discharge Home Medications omeprazole 40 mg capsule,delayed release 20 mg PO DAILY reflux 07/22/15 albuterol sulfate 90 mcg/actuation breath activated powder inhaler 1 puff PO Q6H shortness of breath 09/05/19 multivitamin 1 tab PO QWEEK 09/25/19 apixaban 5 mg tablet 5 mg PO BID #180 tabs 09/26/19 cholecalciferol (vitamin D3) 50 mcg (2,000 unit) tablet 50 mcg PO DAILY 09/26/19 tadalafil 5 mg tablet 5 mg PO DAILY 09/26/19 Lactobacillus acidophilus 10 billion cell capsule (Probiotic) 10,000 mmu cells PO DAILY supplement 09/30/23 calcium 600 mg (as carbonate)-vitamin D3 10 mcg (400 unit) tablet 1 tab PO DAILY supplement 09/30/23 fluticasone fur. 200 mcg-umeclid 62.5 mcg-vilant 25 mcg inhalat.powder (Trelegy Ellipta) 1 ea inhalation DAILY breathing 09/30/23 multivitamin (Daily Multi-Vitamin tablet) 1 tab PO DAILY supplement 09/30/23 omeprazole 20 mg capsule,delayed release 20 mg PO DAILY acid reflux 09/30/23 hydralazine 25 mg tablet mg PO 10/26/24 ipratropium 0.5 mg-albuterol 3 mg (2.5 mg base)/3 mL nebulization soln 3 ml inhalation TID 10/26/24 magnesium 200 mg tablet 200 mg PO DAILY 10/26/24 metformin 500 mg tablet 500 mg PO BID 10/26/24 rosuvastatin 20 mg tablet 20 mg PO DAILY 10/26/24 amiodarone 200 mg tablet 200 mg PO TID #0 tabs 11/04/24 melatonin 10 mg disintegrating tablet 10 mg PO QHS #0 tabs 11/04/24 risperidone 0.5 mg tablet 0.5 mg PO QHS #0 tabs 11/04/24 acetaminophen 325 mg tablet 650 mg (2 x 325 mg) PO Q4H PRN PRN Fever, pain 1-11/30 #0 tabs 11/06/24 budesonide 0.5 mg/2 mL suspension for nebulization 0.5 mg (2 mL) inhalation BID.RT #0 mL 11/06/24 cefdinir 300 mg capsule 300 mg PO BID #6 caps 11/06/24 food supplemt, lactose-reduced 0.08 gram-1.5 kcal/mL oral liquid (Ensure Plus High Protein) 120 ml PO TIDCM #0 mL 11/06/24 furosemide 20 mg tablet 40 mg (2 x 20 mg) PO DAILY PRN swelling #30 tabs 11/06/24 guaifenesin 600 mg tablet, extended release 12 hr (Mucinex) 1,200 mg (2 x 600 mg) PO BID #14 tabs 11/06/24 ipratropium bromide 0.02 % solution for inhalation 0.5 mg (2.5 mL) inhalation Q6HWA.RT #0 mL 11/06/24 metronidazole 500 mg tablet 500 mg PO TID 3 days #9 tabs 11/06/24 sennosides 8.6 mg-docusate sodium 50 mg tablet (Stimulant Laxative Plus) 2 tab PO BID #0 tabs 11/06/24 sodium chloride 0.65 % nasal spray aerosol (Deep Sea Nasal) 2 spray NASAL BID PRN PRN NASAL DRYNESS #0 mL 11/06/24 Physical Exam Narrative GENERAL: cooperative HEENT: Atraumatic; normocephalic EYES; Anicteric, Normal Conjunctiva NECK; supple, normal thyroid, RESPIRATORY: Diminished to auscultation CARDIOVASCULAR: Regular S1 S2, GI: soft, normoactive bowel sounds, : No Renal angle tenderness; EXTREMITIES: edema, no clubbing, MUSCULOSKELETAL: no muscle wasting NEURO: Awake; no lateralizing signs. SKIN: No Rash PSYCH; Flat affect Medical Records Data Homelessness:: Sheltered Weight / BMI Weight Weight: 98.5 kg Body Mass Index (BMI) 29.4 ABG / Lab / Microbiology Data 11/05/24 05:14 11/05/24 05:14 Microbiology: Microbiology 11/02/24 04:54 Sputum, Expectorated/Coughed Gram Stain - Final 11/02/24 04:54 Sputum, Expectorated/Coughed Respiratory Culture - Final Yeast, not Carine albicans 10/29/24 Unknown Fluid - Gallbladder Gram Stain - Final 10/29/24 Unknown Fluid - Gallbladder Body Fluid Culture - Final Escherichia coli Klebsiella oxytoca 10/29/24 Unknown Fluid - Gallbladder Anaerobic Culture - Final Anaerobic cocci Clostridium perfringens 10/26/24 15:55 Blood Culture (Wb) - Arm Right Blood Culture - Final No growth in 5 days. 10/26/24 15:55 Blood Culture (Wb) - Arm Left Blood Culture - Final No growth in 5 days. 10/27/24 09:24 Mucosa - Nasopharyngeal Coronavirus COVID-19 PCR - Final 10/27/24 01:25 Nasal Secretion MRSA (PCR) - Final 10/27/24 00:52 Mucosa - Nasopharyngeal Respiratory Panel (PCR) - Final 10/27/24 02:25 Urine, Random Legionella Antigen - Final 10/27/24 02:25 Urine, Random Streptococcus pneumoniae Antigen (M - Final D/C Instructions DC O2, CPAP, BIPAP Needs Home O2 Discharge instructions: No Meaningful Use Info Meaningful Use Meaningful Use Diagnoses (Choose all that apply): None applicable Discharge Plan Admission Admit Date/Time: 10/26/24 22:50 Attending Provider: Ilan Contreras Primary Care Provider: Dipak Aguilar Consulting Providers: Fernanda Triplett; Khai Bose; Karlos Bella; Kenn Cavazos; Junito Knowles; Gerard Asencio; Genia Scott Instructions Patient Instructions: RAD RN Abscess Drainage, RAD RN Procedural Sedation Additional Instructions / Restrictions: 1. Please get an appointment within the next 2 weeks to follow-up with your urologist at [facility] Discharge Orders/Prescriptions Prescriptions: New amiodarone 200 mg Tablet 200 mg PO TID Qty: 0 0RF Rx Instructions: 200 mg 3 times daily until 11/07/2024 then decrease to 200 mg twice daily until 11/14/2024 then decrease to 200 mg daily and continue that indefinitely risperidone 0.5 mg Tablet 0.5 mg PO QHS Qty: 0 0RF melatonin 10 mg Tablet,Disintegrating 10 mg PO QHS Qty: 0 0RF acetaminophen 325 mg Tablet 650 mg PO Q4H PRN PRN (Reason: Fever, pain 1-1010) Qty: 0 0RF sennosides-docusate sodium [Stimulant Laxative Plus] 8.6-50 mg Tablet 2 tab PO BID Qty: 0 0RF budesonide 0.5 mg/2 mL Suspension For Nebulization 0.5 mg inhalation BID.RT Qty: 0 0RF ipratropium bromide 0.02 % Solution 0.5 mg inhalation Q6HWA.RT Qty: 0 0RF Deep Sea Nasal 0.65 % Aerosol,[place] 2 spray NASAL BID PRN PRN (Reason: NASAL DRYNESS) Qty: 0 0RF Ensure Plus High Protein 0.08 gram-1.5 kcal/mL Liquid 120 ml PO TIDCM Qty: 0 0RF cefdinir 300 mg capsule 300 mg PO BID Qty: 6 0RF metronidazole 500 mg tablet 500 mg PO TID 3 Days Qty: 9 0RF guaifenesin [Mucinex] 600 mg tablet extended release 12hr 1,200 mg PO BID Qty: 14 0RF Continued cholecalciferol (vitamin D3) 50 mcg (2,000 unit) tablet 50 mcg PO DAILY tadalafil 5 mg tablet 5 mg PO DAILY apixaban 5 mg tablet 5 mg PO BID Qty: 180 3RF multivitamin Tablet 1 tab PO QWEEK omeprazole 40 MG capsule 20 mg PO DAILY albuterol sulfate 90 mcg/actuation aerosol powdr breath activated 1 puff PO Q6H Patient Comments: INHALE 1 PUFF BY MOUTH 4 TIMES DAILY NEEDED omeprazole 20 mg capsule,delayed release(DR/EC) 20 mg PO DAILY Trelegy Ellipta 200-62.5-25 mcg blister with device 1 ea inhalation DAILY calcium carbonate-vitamin D3 600 mg-10 mcg (400 unit) tablet 1 tab PO DAILY Probiotic 10 billion cell capsule 10,000 mmu cells PO DAILY multivitamin [Daily Multi-Vitamin] Tablet 1 tab PO DAILY rosuvastatin 20 mg tablet 20 mg PO DAILY metformin 500 mg tablet 500 mg PO BID hydralazine 25 mg tablet PO ipratropium-albuterol 0.5 mg-3 mg(2.5 mg base)/3 mL solution for nebulization 3 ml inhalation TID magnesium 200 mg tablet 200 mg PO DAILY Changed furosemide 20 mg tablet 40 mg PO DAILY PRN (Reason: swelling) Qty: 30 0RF Patient Comments: take as needed for swelling , or weight gain of 3 pounds in one day Discontinued metoprolol tartrate 50 mg tablet 50 mg PO BID Qty: 180 3RF metoprolol tartrate 50 mg tablet 50 mg PO BID Eliquis 5 mg tablet 5 mg PO BID losartan 100 mg tablet 100 mg PO DAILY Referrals / Follow Up: Florencio Trent MD [Med Staff - Active Staff] - Within 1 Month Dipak Aguilar DO [Primary Care Provider] - Disposition Disposition (needs filled in before D/C Order can be placed): Residential Facility Charges/Coding Visit Charges Inpatient E&M: 65548 Disch Hosp >30min
--- NOTE | 2024-11-06 09:45 | CASEMGMT ---
Hospitalist provided this assembly instructions writer with signed med list and transfer orders. Copies made and placed in pt's chart. Original copies tubed to TCU at this time. Notified TCU digital project coordinator that med list and transfer orders have been sent over. Notified pt's RN to call for N2N report. No further needs identified at this time.
--- NOTE | 2024-11-06 10:14 | PCM.PN.ID ---
Physical Exam Narrative Feeling better, no fever, no abd pain Const alert and no apparent distress General Appearance: cooperative Resp normal air movement and clear to auscultation bilaterally Cardio regular rate and regular rhythm GI soft to palpation, non-tender and non-distended Skin no rashes or lesions noted ID ID: Route of nutrition/ use of supplements: [] Nutritional Intake: [] IV Site: [] Kern Catheter: [] Assessment & Plan Assessment/Plan (1) Sepsis: (2) Acute cholecystitis: PLAN: Overall improved. Lauryn tube in place, surgery following. Cont ceftriaxone and flagyl for now. Plan on 2 more days abx, stop date 11/08/24. Can change to po augmentin 875mg bid at discharge. Will follow
[2024-11-06] MEDS: Pantoprazole Sodium 40 MG in 0.9% Normal Saline (100mL MB+) 100 ML 300 MG IV (10:40)
--- NOTE | 2024-11-06 11:01 | NURSING ---
Report called to LUPE Cobb on T[facility] at 1035.
== END 2024-11-06 13:31 | disposition skilled nursing facility (03) | DRG 193 ==
LOC: ED 22:44 → ICU 23:34 → PCU 11-02 17:59
PROVIDERS: Anesthesiology; Internal Medicine; Physician Assistant; Admitting Provider Family Medicine; Emergency Provider Emergency Medicine; PCP Student in an Organized Health Care Education/Training Program; Visit Provider Internal Medicine
DX: J18.9 Pneumonia, unspecified organism (principal); J96.01 Acute respiratory failure with hypoxia; A41.59 Other Gram-negative sepsis; G92.8 Other toxic encephalopathy; I50.21 Acute systolic (congestive) heart failure; S22.41XA Multiple fractures of ribs, right side, initial encounter for closed fracture; J44.0 Chronic obstructive pulmonary disease with (acute) lower respiratory infection; F01.511 Vascular dementia, unspecified severity, with agitation; I13.0 Hypertensive heart and chronic kidney disease with heart failure and stage 1 through stage 4 chronic kidney disease, or unspecified chronic kidney disease; K80.00 Calculus of gallbladder with acute cholecystitis without obstruction; N17.9 Acute kidney failure, unspecified; N13.8 Other obstructive and reflux uropathy; I27.20 Pulmonary hypertension, unspecified; E11.40 Type 2 diabetes mellitus with diabetic neuropathy, unspecified; N18.31 Chronic kidney disease, stage 3a; E04.1 Nontoxic single thyroid nodule; I72.2 Aneurysm of renal artery; I34.0 Nonrheumatic mitral (valve) insufficiency; J69.0 Pneumonitis due to inhalation of food and vomit; I48.0 Paroxysmal atrial fibrillation; E78.5 Hyperlipidemia, unspecified; K21.9 Gastro-esophageal reflux disease without esophagitis; W19.XXXA Unspecified fall, initial encounter; E11.22 Type 2 diabetes mellitus with diabetic chronic kidney disease; E83.42 Hypomagnesemia; E83.39 Other disorders of phosphorus metabolism; Z51.5 Encounter for palliative care; Z86.73 Personal history of transient ischemic attack (TIA), and cerebral infarction without residual deficits; R03.1 Nonspecific low blood-pressure reading; N40.1 Benign prostatic hyperplasia with lower urinary tract symptoms; R33.8 Other retention of urine; T44.7X5A Adverse effect of beta-adrenoreceptor antagonists, initial encounter; E66.3 Overweight; T43.4X5A Adverse effect of butyrophenone and thiothixene neuroleptics, initial encounter; T40.2X5A Adverse effect of other opioids, initial encounter; B96.20 Unspecified Escherichia coli [E. coli] as the cause of diseases classified elsewhere; R13.12 Dysphagia, oropharyngeal phase; R13.14 Dysphagia, pharyngoesophageal phase; Z79.01 Long term (current) use of anticoagulants; Z79.84 Long term (current) use of oral hypoglycemic drugs; Z79.899 Other long term (current) drug therapy; Z87.891 Personal history of nicotine dependence; Z86.16 Personal history of COVID-19; Z79.51 Long term (current) use of inhaled steroids; Z86.19 Personal history of other infectious and parasitic diseases; Z68.29 Body mass index [BMI] 29.0-29.9, adult
CPT/HCPCS: 36415; 36569; 36600; 71045; 71250; 74019; 74230; 76705; 77012; 80048; 80053; 80202; 82803; 82962; 83036; 83605; 83690; 83735; 83880; 84100; 84439; 84443; 85025; 85027; 85610; 85730; 87040; 87070; 87075; 87077; 87186; 87205; 87449; 87633; 87635; 87641; 92526; 92610; 92611; 93005; 93306; 93970; 94002; 94003; 94640; 94668; 94762; 97162; 97166; 97530; 97535; 97802; 97803; 99156; 99157; 99284; P9047; Q9957; A4216; C8929; J0696; J1938; J2405

== ENCOUNTER 2024-11-06 13:35 | Inpatient (IN) | payer MEDICARE, SELFPAY ==
[2024-11-06 14:20] VITALS: BP 114/66; PULSE 68; RESP 18; TEMP 36.4; O2SAT 94; BMI 28.7
--- NOTE | 2024-11-06 14:50 | NURSING ---
paged dr Contreras to verify Eliquis order. Order had Eliquis stopped at DC from PCU, pt has history of AFIB. new order to restart medication per Dr Contreras.
--- NOTE | 2024-11-06 16:22 | NURSING ---
PER MARK,MORTGAGE PROTECTION SPECIALIST IT IS OK FOR THE PT TO STAY EVERY DAY OVER NIGHT DUE TO PT IMPLOSIVE AND TRYING TO GET OUT OF BED AT NIGHT. STATED HE DOES NOT SLEEP MUCH AT NIGHT. RN AWARE
[2024-11-06] MEDS: Albuterol IH (6.7 GM) 1 PUFF INHALER INHALATION ×2 (16:47→23:42)
[2024-11-06 18:40] VITALS: PULSE 130; RESP 22
[2024-11-06] MEDS: Budesonide Respules 0.5 MG/2 ML AMPUL.NEB. INHALATION (19:54)
[2024-11-06] MEDS: Ipratropium 0.5 MG/2.5 ML SOLUTION INHALATION (19:54)
[2024-11-06 19:58] VITALS: PULSE 72; RESP 16
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
--- OUTSIDE RECORDS SUMMARY | 2024-11-06 22:41 | XMS RPT_ITS | CCD ---
Author Organization [facility] Care Team Providers Care Human Factors Scientist Name Role Phone AJ ISSA Unavailable Unavailable DIPAK AGUILAR Unavailable Unavailable DIPAK AGUILAR Unavailable Unavailable Dipak Aguilar DO Primary Care Provider Dipak Aguilar DO Primary Care Provider Dipak Aguilar DO Primary Care Provider Dipak Aguilar DO Primary Care Provider Dipak Aguilar DO Primary Care Provider DIPAK AGUILAR Primary Care Unavailable JEFFREY HDZ Referring Unavail able Emerald ANDRADE, Ananya Unavailable AJ ISSA Attending Unavailabl e DIPAK AGUILAR Primary Care Unavailable Berman ADVERTISING COPYWRITER.Radha JEAN-BAPTISTE Unavailable Jose ADVERTISING COPYWRITER.Elisa JEAN-BAPTISTE Unavailable Alon ADVERTISING COPYWRITER.Ruma JEAN-BAPTISTE Unavailable Dr. Dipak Aguilar DO Primary Care Provider Dr. Sukhdev Mark MD Emergency Provider DIPAK AGUILAR Primary Care Unavailable MAR, ANALISA MATTHEWS Referring Unavailable DIPAK AGUILAR Primary Care Unavailable MAR, MARYBELD CASSIE Referring Unavailable DIPAK AGUILAR Primary Care Unavailable JEFFREY HDZ Attending Unavail able DIPAK AGUILAR Primary Care Unavailable DIPAK AGUILAR Referring Unavailable ELISA GARCIA Referring Unavailable DIPAK AGUILAR Primary Care Unavailable ELISA GARCIA Attending Unavailable DIPAK AGUILAR Primary Care Unavailable RADHA BERMAN Referring Unavailabl e AGUILAR, DIPAK L Primary Care Unavailable RADHA BERMAN Attending Unavailabl e AGUILAR, DIPAK L Primary Care Unavailable AGUILAR, DIPAK L Primary Care Unavailable SLEIK, KHALED MELOUD Attending Unavailable AGUILAR, DIPAK L Primary Care Unavailable JOSE, ELISA Attending Unavailable JOSE, ELISA Referring Unavailable AGUILAR, DIPAK L Primary Care Unavailable OMAR TREADWELL Attending Unavailable JOSE, ELISA Referring Unavailable AGUILAR, DIPAK L Primary Care Unavailable JOSE, ELISA Referring Unavailable GAUILAR, DIPAK L Primary Care Unavailable AGUILAR, DIPAK L Primary Care Unavailable JOSE, ELISA Referring Unavailable AGUILAR, DIPAK L Primary Care Unavailable VIKKI ALBRECHT Attending Unavailable AGUILAR, DIPAK L Primary Care Unavailable VIKKI ALBRECHT Attending Unavailable AGUILAR, DIPAK L Primary Care Unavailable ANANYA FRAZIER Attending Unavailable AGUILAR, DIPAK L Primary Care Unavailable SLEIK, KHALED MELOUD Referring Unavailable AGUILAR, DIPAK L Primary Care Unavailable ALON, RUMA SINA Attending Unavailable AGUILAR, DIPAK L Primary Care Unavailable RADHA BERMAN Referring Unavailabl e ELAINE JIANG JR Attending Unavailable AGUILAR, DIPAK L Primary Care Unavailable AGUILAR, DIPAK L Referring Unavailable AGUILAR, DIPAK L Primary Care Unavailable AGUILAR, DIPAK L Attending Unavailable AGUILAR, DIPAK L Primary Care Unavailable ALON, RUMA SINA Referring Unavailable AGUILAR, DIPAK L Primary Care Unavailable SLEIK, KHALED MELOUD Referring Unavailable JOSE, ELISA Attending Unavailable AGUILAR, DIPAK L Primary Care Unavailable JOSE, ELISA Attending Unavailable AGUILAR, DIPAK L Primary Care Unavailable Dr. Sukhdev Mark MD Attending Provider Dr. Abdelrahman Keller MD Emergency Provider Dr. Abdelrahman Keller MD Attending Provider Akira Blanco MD Emergency Provider [phone] Fernanda Triplett MD Admit Provider Dr. Fernanda Triplett MD Attending Provider Khai Bose Attending Unavailable Aguilar, Dipak Primary Care Unavailable Fernanda Triplett Admitting Unavailable Kenn Cavazos Consulting Unavailable Blake Pinzon Consulting Unavailable Woo Rehman Consulting Unavailable Shahriar Pressley Consulting Unavailable Goran Bowens Consulting Unavailable Ilan Oliver Consulting Unavailable Evert Colby Consulting Unavailable Harrison Garay Consulting Unavailable Antonette Angeles Consulting UnavailCamilo Flores Consulting Unavailable Héctor Neri Consulting Unavailable Ameya Smith Consulting Unavailable Beronica Cespedes Consulting Unavailable Cata Bustillo Consulting Unavailable TariqStephanie thomas Consulting Unavailable SagrarioJuliana reedtam Consulting Unavailable Jackson Marcum Consulting Unavailable Nick, Robi Consulting Unavailable DheSondra yoonLalo Consulting Unavailable Teresa Johnson Consulting Unavailable Ariana Dietrich Consulting Unavailable Jose Bergeron Consulting Unavailable Herb Kim Consulting Unavailable Jacky Blackwood Consulting Unavailable Nancy Wang Consulting UnavailElaine Cummings Consulting Unavailable Rochelle SNOWDEN, Vidhya Consulting Unavailable Oriana Correia Consulting Unavailable Fernanda Triplett Consulting Unavailable Khai Bose Consulting Unavailable Kenn Cavazos Attending Unavailable Airam Gottlieb Attending Gerard Velazquez Consulting Unavailable Airam Gottlieb Consulting Cece Estrada Consulting Unavailable Junito Knowles Consulting Unavailable Dipak Aguilar Primary Care Unavailable Sukhdev Mark Attending Unavailable Dipak Aguilar Primary Care Unavailable Abdelrahman Keller Attending Unavailable Ilan Contreras Attending Unavailable Genia Scott Consulting Unavailable Kylee Castellano Attending Unavailable Cece Bella Attending Unavailable Fernanda Triplett Attending Unavailable Genia Scott Attending Unavailable Aguilar, Dipak Primary Care Unavailable Sue Anderson Attending UnavailGoran Duncan Attending Unavailable Ilan Contreras Consulting Unavailable Dr. Dipak Aguilar DO Primary Care Provider Jas GALDAMEZ, Dr. Santizo Attending Provider [phone] Jas GALDAMEZ, Dr. Santizo Emergency Provider Krishna GALDAMEZ, Dr. Quick Attending Provider Dr. Abdelrahman Keller MD Emergency Provider Akira Blanco MD Emergency Provider Uziel GALDAMEZ, Dr. Fernanda Sow Admit Provider Uziel GALDAMEZ, Dr. Fernanda Swo Other Provider Juice GALDAMEZ, Dr. Ridley Other Provider Jena GALDAMEZ, Dr. Everett Other Provider Dirk GALDAMEZ, Dr. Kenn Moreland Other Provider Eleni GALDAMEZ, Dr. Wild Other Provider Luis M GALDAMEZ, Dr. Gerard Salazar Other Provider Ben GALDAMEZ, Dr. Talavera Attending Provider Unavaila ble Tyler BLACKMON, Dr. Cormier Other Provider Alberta GALDAMEZ, Dr. Lozano Other Provider Sherie GALDAMEZ, Dr. Berkowitz Other Provider Huan GALDAMEZ, Dr. Bess Other Provider Dr. Goran Bowens DO Other Provider Melody GALDAMEZ, Dr. Ilan Yoon Other Provider [phone] Earnestine GALDAMEZ, Dr. Loyd Other Provider Jarrod GALDAMEZ, Dr. Terry Other Provider Bridgette GALDAMEZ, Dr. Whitman Other Provider Nida GALDAMEZ, Dr. Page Other Provider Dr. Héctor Neri MD Other Provider [phone] Luis GALDAMEZ, Dr. Hou Other Provider [phone] Rubina GALDAMEZ, Dr. Loco Other Provider Keny GALDAMEZ, Dr. Ivy Other Provider Unavailabl cl Tariq MD, Dr. Brown Other Provider Sagrario GALDAMEZ, Dr. Lee Other Provider Jossue GALDAMEZ, Dr. Paz Other Provider Nick GALDAMEZ, Dr. Rosenbaum Other Provider Dr. Lalo Alcaraz DO Other Provider Elizabeth GALDAMEZ, Dr. Moore Other Provider Karlo GALDAMEZ, Dr. Lane Other Provider Elyssa BLACKMON, Dr. Garcia Other Provider uJdy GALDAMEZ, Dr. Estevez Other Provider Maxi Blackwood MD, Dr. Rico Other Provider Felipe GALDAMEZ, Dr. Cruz Other Provider Henrique GALDAMEZ, Dr. Berry Other Provider Rochelle COMMUNITY ADVOCATE-C, Vidhya Other Provider Masood COMMUNITY ADVOCATE-C, Oriana Bedolla Other Provider [phone] Juice GALDAMEZ, Dr. Ridley Attending Provider Monica GALDAMEZ, Dr. Rogers Attending Provider Dr. Kenn Cavazos MD Attending Provider Jennifer FLOYD-C, Kylee Attending Provider Dr. Goran Bowens DO Attending Provider Bull COMMUNITY ADVOCATE-C, Airam Attending Provide r Bull COMMUNITY ADVOCATE-C, Airam Other Provider Dr. Cece Bella MD Attending Provider Dr. Genia Scott DO Attending Provider Ben GALDAMEZ, Dr. Talavera Other Provider Unavailable Allergies Allergy Classification Reported Allergen(s) Allergy Type Date of Onset Reaction(s) Facility (20 sources) mold extract; Translations: [MOLD] Drug Allergy 1 Cough [facility] Repository (20 sources) CYPRESS; Translations: [CYPRESS] Propensity to adverse reactions (disorder) 1 Other: See Comments [facility] Rep[facility] (20 sources) CEDAR; Translations: [CEDAR] Propensity to adverse reactions (disorder) 1 Cough [facility] Rep[facility] (20 sources) predniSONE; Translations: [PREDNISONE] Drug Allergy Mental Status Change [facility] Medications Current Medications Medication Drug Class(es) Dates Sig (Normalized) Sig (Original) acetaminophen 325 mg oral tablet (1 source) Start: 11-06-2024 albuterol 0.833 mg/ml / ipratropium bromide 0.167 mg/ml inhalation solution (17 sources) Anticholinergic, beta2-Adrenergic Agonist Start: 10-26-2024 Start: 10-26-2024 take 1 mL by inhalat ion three times daily Ipratropium-Albuterol 0.5 mg-3 mg(2.5 mg base)/3 mL solution for nebulization Active 3 mL INHALATION THREE TIMES A DAY October 26, 2024 12:00am End: 07-02-2024 take 3 mL by inhalation three times daily ipratropium-albuterol (DUONEB) 0.5 mg-3 mg(2.5 mg base)/3 mL nebu Inhale 3 mL as instructed three times a day. 07/02/2024 Discontinued (Course of therapy completed) amiodarone hydrochloride 200 mg oral tablet (1 source) Antiarrhythmic Start: 11-04-2024 amoxicillin 875 mg / clavulanate 125 mg oral tablet (1 source) Penicillin-class Antibacterial Start: 07-01-2022 End: 07-08-2022 take 1 tablet by mouth twice daily amoxicillin-clav ulanic acid (AUGMENTIN) 875-125 mg per tablet Take 1 tablet by mouth twice daily for 7 days. 20 tablet 0 07/01/2022 07/08/2022 Active Comment on above: Take 1 tablet by sindhu th twice daily for 7 days. Blood-Glucose Meter monitoring kit (2 sources) Start: 05-31-2024 End: 06-01-2024 Blood-Glucose Meter monitoring kit Indications: New onset type 2 diabetes mellitus (HCC) Glucose Meter of Choice - Kit - Dx: Type 2 DM - Controlled E11.9 1 each 05/31/2024 06/01/2024 Active budesonide 0.25 mg/ml inhalation suspension (14 sources) Corticosteroid Start: 11-06-2024 budesonide (PULM ICORT) 0.25 mg/2 mL nebulizer solution Use 0.25 mg via nebulizer two times a day. Active calcium carbonate 1500 mg / cholecalciferol 0.01 mg oral tablet (5 sources) Vitamin D Start: 09-30-2023 Start: 09-30-2023 Calcium Carbon ate-Vitamin D3 600 mg-10 mcg (400 unit) tablet [...] Take 800 mg by mouth once daily. cefdinir 300 mg oral capsule (1 source) Cephalosporin Antibacterial Start: 11-06-2024 cholecalciferol 0.05 mg oral tablet (5 sources) Vitamin D Start: 09-26-2019 docusate sodium 50 mg / sennosides, alf 8.6 mg oral tablet (1 source) Start: 11-06-2024 Etvkbmbbtxu-Wzpsdlyzh-Htintg er (5 sources) Start: 09-30-2023 Start: 09-30-2023 Fluticasone-Um eclidin-Vilanter (Trelegy Ellipta) 200-62.5-25 mcg blister with device Active 1 NMA INHALATION DAILY September 30, 2023 12:00am breathing Start: 09-30-2023 Fluticasone-Um eclidin-Vilanter (Trelegy Ellipta) 200-62.5-25 mcg blister with device Active 1 NMA INHALATION DAILY September 30, 2023 12:00am furosemide 20 mg oral tablet (11 sources) Loop Diuretic Start: 10-26-2024 End: 11-06-2024 Start: 05-16-2024 End: 05-31-2024 furosemide (LASIX) 20 mg tab let Indications: Hospital discharge follow-up , Bilateral leg edema Take 1 tablet by mouth as needed. 30 tablet 05/16/2024 05/31/2024 Discontinued 12 hr guaiFENesin 600 mg ext ended release oral tablet (1 source) Start: 11-06-2024 hydrALAZINE hydrochloride 25 mg oral tablet (20 sources) Arteriolar Vasodilator Start: 10-26-2024 Start: 05-30-2024 End: 09-05-2024 take 1 tablet [...] mouth four times daily. 04/27/2024 05/30/2024 Discontinued ipratropium bromide 0.2 mg/m l inhalation solution (1 source) Anticholinergic Start: 11-06-2024 lactobacillus acidophilus 10 [id number] unt oral capsule (5 sources) Start: 09-30-2023 Start: 09-30-2023 take 10 capsules by mouth once daily Lactobacillus Acidophilus (Probiotic) 10 billion cell capsule Active 74666 NMA PO DAILY September 30, 2023 12:00am supplement Magnesium (1 source) Start: 10-26-2024 take 1 tablet by mouth once daily Magnesium 200 mg tablet Active 200 mg PO DAILY October 26, 2024 12:00am melatonin 10 mg sublingual tablet (1 source) Start: 11-04-2024 metFORMIN hydrochloride 500 mg oral tablet (19 sources) Biguanide Start: 10-26-2024 Start: 05-31-2024 End: 06-28-2024 take 1 tablet [...] with meals. 60 tablet 2 06/28/2024 Active metroNIDAZOLE 500 mg oral tablet (1 source) Nitroimidazole Antimicrobial Start: 11-06-2024 Multivitamin (Daily Multi-Vitamin) tablet (4 sources) Start: 08-09-2024 Multivitamin ( Daily Multi-Vitamin) tablet Active 1 {tbl} PO DAILY September 30, 2023 12:00am supplement Start: 09-30-2023 Multivitamin ( Daily Multi-Vitamin) tablet Active 1 {tbl} PO DAILY September 30, 2023 12:00am Multivitamin tablet (4 sources) Start: 09-25-2019 Multivitamin t ablet Active 1 {tbl} PO EVERY WEEK September [...] Proton Pump Inhibitor Start: 11-19-2022 End: 05-25-2025 Start: 11-19-2022 End: 11-19-2022 take 1 capsule by mouth every twelve hours as needed omeprazole (PRILOSEC) 20 mg capsule Take 1 capsule by mouth two times a day as needed. 1/2 hr before meal. 60 capsule 2 11/19/2022 11/19/2022 Discontinued Start: 07-22-2015 Start: 07-22-2015 End: 11-19-2022 take 1 capsule [...] day as needed. 1/2 hr before meal. risperiDONE 0.5 mg oral tabl et (1 source) Atypical Antipsychotic Start: 11-04-2024 rosuvastatin calcium 20 mg o ral tablet (20 sources) HMG-CoA Reductase Inhibitor Start: 10-26-2024 Start: 01-10-2024 End: 05-30-2024 take 1 tablet by mouth once daily Rosuvastatin 20 mg tablet Active 20 mg PO DAILY October 26, 2024 12:00am saccharomyces boulardii 250 mg oral capsule (20 sources) take 1 capsule by mouth once daily Saccharomyces boulardii (FLORASTOR) 250 mg capsule Take 250 mg by mouth once daily. Active sodium chloride 0.111 meq/ml nasal spray (1 source) Start: 11-06-2024 TRELEGY ELLIPTA 200-62.5-25 mcg dsdv (20 sources) Start: 08-19-2020 TRELEGY ELLIPTA 200-62.5-25 mcg dsdv Inhale as instructed once daily. 08/19/2020 Active Start: 08-19-2020 TRELEGY ELLIPT A 200-62.5-25 mcg dsdv Inhale as instructed once daily. 0 08/19/2020 Active Start: 08-19-2020 TRELEGY ELLIPT A 200-62.5-25 mcg dsdv Comment on above: Inhale as instructed once daily. (7 sources) Start: 11-06-2024 Start: 10-26-2024 Start: 09-30-2023 Start: 09-25-2019 Start: 09-25-2019 End: 09-26-2019 Start: 09-05-2019 End: 09-25-2019 Start: 09-05-2019 End: 09-25-2019 Completed/Discontinued Medications Medication Drug Class(es) Dates Sig (Normalized) Sig (Original) [id number] 200 actuat albuterol 0.09 mg/actuat metered dose [...] Each 11 10/11/2019 11/17/2022 Discontinued Start: 09-05-2019 Start: 09-05-2019 Albuterol Sulf ate 90 mcg/actuation aerosol powdr breath activated Active 1 NMA PO EVERY 6 HOURS September 05, 2019 12:00am shortness of breath Comment on above: Inhale 1 Puff as ins tructed four times daily as needed. Inhale 2 Puffs as in structed every 4 hours as needed for wheezing/shortness of breath. Also can use 10 minutes before exercise 24 hr alfuzosin hydrochloride 10 mg extended release oral tablet (20 sources) alpha-Adrenergic Mattie Start: 06-30-19 End: 09-12-19 take 1 tablet by mouth once daily alfuzosin SR (UROXATRAL) 10 mg 24 hr tablet Indications: benign prostatic hyperplasia Take 1 tablet by mouth once daily 90 tablet 0 05/18/2023 09/12/2023 Discontinued Comment on above: Take 1 tablet by sindhu th once daily. Take 1 tablet by sindhu th once daily amoxicillin 500 mg oral capsule (20 sources) Penicillin-class Antibacterial Start: 07-13-19 End: 11-29-19 amoxicillin (AMOXIL) 500 mg capsule TAKE FOUR CAPSULES BY MOUTH ONE HOUR BEFORE APPOINTMENT 07/12/2022 11/29/2023 Discontinued Start: 10-11-2013 End: 07-22-2015 Comment on above: TAKE FOUR CAPSULES B Y MOUTH ONE HOUR BEFORE APPOINTMENT apixaban 5 mg oral tablet (20 sources) Factor Xa Inhibitor Start: 09-06-2019 End: 11-04-2024 Comment on above: Take 1 tablet by sindhu th twice daily. take 1 tablet twice a day atorvastatin 40 mg oral tabl et (18 sources) HMG-CoA Reductase Inhibitor Start: 10-01-2023 End: 10-26-2024 Budesonide-Formoterol (5 sources) Corticosteroid, beta2-Adrenergic Agonist Start: 09-05-2019 End: 10-26-2024 Start: 09-05-2019 End: 10-26-2024 Budesonide-Formoterol 160-4. 5 mcg/actuation HFA aerosol inhaler Discontinued 2 NMA PO TWICE A DAY September 05, 2019 12:00am October 26, 2024 6:13pm breathing Start: 09-05-2019 Budesonide-For moterol 160-4.5 mcg/actuation HFA aerosol inhaler Active 2 NMA PO TWICE A DAY September 05, 2019 12:00am breathing cetirizine hydrochloride 10 mg oral tablet (20 sources) Histamine-1 Receptor Antagonist Start: 07-02-2013 End: 11-17-2022 take 1 tablet by mouth once daily cetirizine (ZYRTEC) 10 mg tablet Take 10 mg by mouth once daily. 0 07/02/2013 11/17/2022 Discontinued Comment on above: Take 10 mg by mouth once daily. Fish Oils (4 sources) Start: 09-05-2019 End: 09-25-2019 Fish Oil 1 [...] % 6 mL to pical gel (GLYDO) losartan potassium 100 mg or al tablet (20 sources) Angiotensin 2 Receptor Mattie Start: 09-25-2024 End: 11-06-2024 Start: 06-28-2024 take 1 tablet by sindhu once daily losartan (COZAAR) 100 mg tablet [...] mg by mouth once daily. 05/30/2024 Discontinued metoprolol tartrate 50 mg oral tablet (20 sources) beta-Adrenergic Mattie Start: 09-06-2019 End: 11-06-2024 Comment on above: TAKE 1 TABLET TWICE A DAY [facility]. Multivitamin 1 TAB (4 sources) Start: 09-05-2019 End: 09-25-2019 Multivitamin 1 TAB Discontinued 1 {tbl} PO EVERY WEEK September 05, [...] (1 source) Nitrofuran Antibacterial Start: 023 End: 023 take 1 capsule by mouth twice daily nitrofurantoin monohydrate and macrocrystal (MACROBID) 100 mg capsule Take 1 capsule by mouth twice daily for 7 days. FOR 7 DAYS. 14 capsule 0 10/12/2022 10/12/2022 Discontinued (Course of therapy completed) Comment on above: Take 1 capsule by [facility] twice daily for 7 days. FOR 7 DAYS. [place]-3 Fatty Acids (Fish Oil Concentrate) 1,000 mg capsule (4 sources) Start: 020 End: take 1 capsule by mouth once daily [place]-3 Fatty Acids (Fish Oil Concentrate) 1,000 mg capsule Discontinued 1000 mg PO DAILY September 25, 2019 12:00am September 26, 2019 1:01pm sildenafil 100 mg oral tablet (10 sources) Phosphodiesterase 5 Inhibitor Start: 023 End: 024 sildenafil (VIAGRA) 100 mg tablet Indications: ED [...] on above: Take 1 tablet by sindhu as needed. 30 to 60 minutes prior [...] 3 11/16/2021 Active Start: 09-26-2019 End: 05-25-2021 Comment on above: Take 1 tablet by sindhu once daily. Take 1 tablet once d aily as needed for erectile dysfunction 24 hr tolterodine tartrate 2 mg extended release oral capsule (10 sources) Cholinergic Muscarinic Antagonist Start: 3 take 2 capsules by mouth once daily tolterodine ER (DETROL LA) 2 mg 24 hr capsule Indications: Urinary incontinence, unspecified type Take 2 capsules by mouth once daily. 30 capsule 11 08/17/2022 Active Comment on above: Take 2 capsules by m [facility] once daily. Problems Active Problems Problem Classification Problem Date Documented Date Episodic/Chronic Acute cerebrovascular disease (11 sources) Cerebrovascular accident; Translations: [Cerebral infarction, unspecified] Onset: 09-05-2024 05-16-2024 Chronic Administrative/social admission (1 source) Mobility poor; Translations: [Other reduced mobility] 05-16-2024 Episodic Biliary tract disease (5 sources) Acute cholecystitis; Translations: [Acute cholecystitis] Onset: 11-05-2024 10-26-2024 Episodic Cardiac dysrhythmias (20 sources) Persistent atrial [...] 09-12-2019 09-12-2019 Chronic Chronic ulcer of skin (5 sources) Ulcer of lower extremity; Translations: [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] 09-24-2019 Chronic Diabetes mellitus without complication (13 sources) Type 2 diabetes mellitus; Translations: [Type 2 diabetes mellitus without complications] Onset: 06-28-2024 05-30-2024 Chronic Disorders of lipid metabolism (20 sources) Dyslipidemia; Translations: [Hyperlipidemia, unspecified] Onset: 09-26-2022 09-26-2022 Chronic Diverticulosis and diverticulitis (20 sources) Diverticulosis of colon; Translations: [Diverticulosis of large intestine without perforation or abscess without bleeding] 11-07-2006 Chronic E Codes: Fall (5 sources) Falling injury; Translations: [Unspecified fall, initial encounter] 09-11-2024 Episodic Esophageal disorders (20 sources) Gastroesophageal reflux disease; Translations: [Gastro-esophageal reflux disease without esophagitis] Onset: 11-07-2006 11-07-2006 Chronic Essential hypertension (20 sources) Essential hypertension; Translations: [Essential (primary) hypertension] Onset: 09-05-2024 05-30-2024 Chronic Fluid and electrolyte disorders (4 sources) Lactic acidosis; Translations: [Lactic acidosis] 10-26-2024 Episodic Genitourinary symptoms and ill-defined conditions (20 [...] disorders (1 source) Confusional state 05-16-2024 Chronic Mycoses (20 sources) Histoplasmosis; Translations: [Histoplasmosis, unspecified] Onset: 11-23-2019 11-23-2019 Episodic Nutritional deficiencies (20 sources) Vitamin D deficiency; Translations: [Vitamin D deficiency, unspecified] Onset: 11-16-2021 11-16-2021 Chronic Open wounds of extremities (6 sources) Laceration of right hand; Translations: [Laceration without foreign body of right hand, initial encounter] 09-11-2024 Episodic Open wounds of head; neck; and trunk (6 sources) Laceration of right eyelid; Translations: [Laceration without foreign body of right eyelid and periocular area, initial encounter] Onset: 09-17-2024 09-11-2024 Episodic Other aftercare (5 sources) Post-discharge follow-up; Translations: [Encounter for follow-up examination after completed treatment for conditions other than malignant neoplasm] 05-16-2024 Episodic Other aftercare (7 sources) Long-term current use of anticoagulant; Translations: [director long term care (current) use of anticoagulants] 10-04-2023 Episodic Other aftercare (1 source) prison (current) use of anticoagulants; Translations: [director long term care (current) use of anticoagulants] Onset: 11-05-2024 Episodic Other aftercare (1 source) Encounter for palliative care; Translations: [Encounter for palliative care] Onset: 11-05-2024 Episodic Other and unspecified benign neoplasm (20 [...] Onset: 09-10-2024 Episodic Other connective tissue disease (4 sources) Foreign body; Translations: [Residual foreign body [...] injuries and conditions due to external causes (5 sources) Injury of head; Translations: [Other specified [...] [Wheezing] 11-29-2023 Episodic Other lower respiratory disease (19 sources) Dyspnea on exertion; Translations: [Shortness of breath] Onset: 09-05-2024 11-29-2023 Episodic Other lower respiratory disease (1 source) Nodule of lung; Translations: [Solitary pulmonary nodule] 12-13-2023 Episodic Other lower respiratory disease (2 sources) Other forms of dyspnea; Translations: [SOTO (dyspnea on exertion)] Onset: 07-12-2024 Episodic Other male genital disorders (20 sources) Secondary erectile dysfunction; 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, unspecified] Onset: 11-16-2021 11-16-2021 Chronic Other nervous system disorders (5 sources) Expressive dysphasia; 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] 10-04-2023 Chronic Other nervous system disorders (1 source) Abnormal gait; Translations: [Unsteadiness on feet] 05-16-2024 Episodic Other non-traumatic joint disorders (2 sources) Hip pain; Translations: [Pain in right hip] 11-10-2023 Episodic Other screening for suspected conditions (not mental disorders or infectious disease) (7 sources) Patient encounter status; Translations: [Encounter for screening for cardiovascular disorders] Onset: 11-04-2023 09-08-2023 Episodic Other skin disorders (1 source) Skin lesion; Translations: [Disorder of the skin and subcutaneous tissue, unspecified] Episodic Other upper respiratory infections (1 source) Viral upper respiratory tract infection; Translations: [Acute upper respiratory infection, unspecified] 10-13-2020 Episodic Pulmonary heart disease (16 sources) Pulmonary hypertension; Translations: [Pulmonary hypertension, unspecified] [...] [Chronic respiratory failure with hypoxia] 05-16-2024 Chronic Septicemia (except in labor) (5 sources) Sepsis; Translations: [Sepsis, unspecified organism] Onset: 11-05-2024 10-26-2024 Episodic Spondylosis; intervertebral disc disorders; other back problems (1 source) Lumbar spondylosis; Translations: [Spondylosis without myelopathy or radiculopathy, lumbar region] 11-23-2023 Chronic Transient cerebral ischemia (7 sources) Transient cerebral ischemia; Translations: [Transient cerebral ischemic attack, unspecified] Onset: 09-10-2024 10-04-2023 Chronic Unclassified (1 source) Unknown / UNK(Unknown) Onset: 10-21-2016 Unclassified (1 source) Permanent atrial fibrillation; Translations: [Permanent atrial fibrillation (HCC)] Onset: 08-31-2021 Unclassified (1 source) BP Check Onset: 06-13-2024 Unclassified (1 source) Asthma-COPD overlap syndrome (HCC); Translations: [Asthma-COPD overlap syndrome (HCC)] Onset: 12-05-2023 Unclassified (1 source) Acidosis, unspecified; Translations: [Acidosis, unspecified] Onset: 11-05-2024 Unclassified (1 source) Chronic atrial fibrillation, unspecified; Translations: [Chronic atrial fibrillation, unspecified] Onset: 11-05-2024 Past or Other Problems Problem Classification Problem Date Documented Da te Episodic/Chronic Cardiac dysrhythmias (1 source) Tachycardia, unspecified; Translations: [Tachycardia] Onset: 07-12-2024 Episodic Diabetes mellitus without complication (20 sources) Hyperglycemia; Translations: [Hyperglycemia, unspecified] Onset: 07-03-2009 08-14-2009 Episodic Genitourinary symptoms and ill-defined conditions (20 sources) Increased frequency of urination; Translations: [Frequency of micturition] Onset: 10-21-2016 10-21-2016 Episodic Malaise and fatigue (3 sources) Fatigue; Translations: [Other fatigue] Onset: 11-04-2023 11-02-2023 Episodic Other aftercare (1 source) Encounter for [...] overweight; Translations: [Overweight] Onset: 11-10-2016 11-10-2016 Episodic Residual codes; unclassified (20 sources) Insomnia; [...] source) Frequency of micturition Onset: 11-01-2017 Unclassified (3 sources) Abrasion, right knee, initial encounter 09-11-2024 Unclassified (3 sources) Abrasion of right elbow, initial encounter 09-11-2024 Unclassified (3 sources) Contusion of right knee, initial encounter 09-11-2024 Results Test Name Value Interpretation Reference Range Facility Absolute lymphocyte countOrd ered By: Genia Scott on 11-05-2024 Lymphocytes Auto (Unsp spec) [#/Vol] 0.97 10*3/uL 0.83-4.51 [facility] Anion gap in Serum or Plasma Ordered By: Genia Scott on 11-05-2024 Anion gap [Moles/Vol] 10 mmol/L 07-05 [facility] BUN/creatinine ratioOrdered By: Genia Scott on 11-05-2024 Urea nitrogen/Creatinine [Mass ratio] 14.5 mg/mg 12-10 [facility] Basic Metabolic Profile (BMP )on 11-05-2024 BUN/CRE 14.5 RATIO Normal 12-10 [facility] Comment on above: Performed By: #### L 100.0100, L500.2500 ####[facility] [address] [place], [address] Calcium [Mass/Vol] 9.3 mg/dL Normal 7.6-11.0 [facility] Comment on above: Performed By: #### L 100.0100, L500.2500 ####[facility] [address] [place], [address] Chloride [Moles/Vol] 105 mmol/L Normal 98-108 [facility] Comment on above: Performed By: #### L 100.0100, L500.2500 ####[facility] [address] [place], [address] CO2 [Moles/Vol] 26.5 mmol/L Normal 21.0-32.0 [facility] Comment on above: Performed By: #### L 100.0100, L500.2500 ####[facility] [address] [place], [address] Creatinine [Mass/Vol] 1.52 mg/dL High 0.70-1.20 [facility] Comment on above: Performed By: #### L 100.0100, L500.2500 ####[facility] [address] [place], [address] ECRCL 40.84 ml/min Low 50-250 [facility] Comment on above: Performed By: #### L 100.0100, L500.2500 ####[facility] [address] [place], [address] GAP 10 Normal 5-15 [facility] Comment on above: Performed By: #### L 100.0100, L500.2500 ####[facility] [address] [place], [address] GFR/1.73 sq M.predicted among non-blacks MDRD (S/P/Bld) [Vol rate/Area] 44 mL/min/{1.73_m2} Low >60 [facility] Comment on above: Result Comment: mL/m in/1.73m2 CKD-EPI Creatinine Equation (2020) Performed By: #### L 100.0100, L500.2500 ####[facility] [address] [place], [address] Glucose [Mass/Vol] 93 mg/dL Normal 70-99 [facility] Comment on above: Performed By: #### L 100.0100, L500.2500 ####[facility] [address] [place], [address] Potassium [Moles/Vol] 3.4 mmol/L Normal 3.3-5.1 [facility] Comment on above: Performed By: #### L 100.0100, L500.2500 ####[facility] [address] [place], [address] Sodium [Moles/Vol] 141 mmol/L Normal 133-145 [facility] Comment on above: Performed By: #### L 100.0100, L500.2500 ####[facility] [address] [place], [address] Urea nitrogen [Mass/Vol] 22 mg/dL High 4-19 [facility] Comment on above: Performed By: #### L 100.0100, L500.2500 ####[facility] [address] [place], [address] Bedside Glucoseon 11-05-2024 FINGERSTICK GLU 87 mg/dL Normal 74-106 [facility] Comment on above: Result Comment: LILLIAN KUHN OF PATIENT CARE PER NURSING PROTOCOL Performed By: #### L 501.080 ####[facility] [address] [place], [address] Blood band neutrophil count as percentage of total leukocytesOrdered By: Genia Scott on 11-05-2024 Band form neutrophils/100 WBC (Bld) 2 % 0-5 [facility] Blood eosinophils/100 leukoc ytesOrdered By: Genia Scott on 11-05-2024 Eosinophils/100 WBC (Bld) 1 % 0-5 [facility] Blood lymphocytes/100 leukoc ytesOrdered By: Genia Scott on 11-05-2024 Lymphocytes/100 WBC (Bld) 7 % Low 19-41 [facility] Blood metamyelocytes/100 dejuan kocytesOrdered By: Genia Scott on 11-05-2024 Metamyelocytes/100 WBC (Bld) 1 % 0-1 [facility] Blood monocytes/100 leukocyt esOrdered By: Genia Scott on 11-05-2024 Monocytes/100 WBC (Bld) 2 % 0-10 [facility] Blood segmented neutrophils/ 100 leukocytesOrdered By: Genia Scott on 11-05-2024 Segmented neutrophils/100 WBC (Bld) 86 % High 47-70 [facility] CBC W/Diff, Automatedon 10-22 Absolute Lymph 0.97 X10 3/uL Normal 0.83-4.51 [facility] Comment on above: Performed By: #### L 100.0100, L500.2500 ####[facility] [address] [place], [address] Absolute Neut 12.1 X10 3/uL High 2.0-7.7 [facility] Comment on above: Performed By: #### L 100.0100, L500.2500 ####[facility] [address] [place], [address] BAND 2 Normal 0-5 [facility] Comment on above: Performed By: #### L 100.0100, L500.2500 ####[facility] [address] [place], [address] Eosinophils/100 WBC (Bld) 1 % Normal 0-5 [facility] Comment on above: Performed By: #### L 100.0100, L500.2500 ####[facility] [address] [place], [address] Lymphocytes (Bld) [#/Vol] 7 10*3/uL Low 19-41 [facility] Comment on above: Performed By: #### L 100.0100, L500.2500 ####[facility] [address] [place], [address] META 1 Normal 0-1 [facility] Comment on above: Performed By: #### L 100.0100, L500.2500 ####[facility] [address] [place], [address] Metamyelocytes/100 WBC (Bld) 1 % High 0-0 [facility] Comment on above: Performed By: #### L 100.0100, L500.2500 ####[facility] [address] [place], [address] MONOCYTE 2 Normal 0-10 [facility] Comment on above: Performed By: #### L 100.0100, L500.2500 ####[facility] [address] [place], [address] PLT EST ADEQUATE Normal ADEQ [facility] Comment on above: Performed By: #### L 100.0100, L500.2500 ####[facility] [address] [place], [address] RED CELL MORPH NORM C+C Normal NORM C C [facility] Comment on above: Performed By: #### L 100.0100, L500.2500 ####[facility] [address] [place], [address] SEGS 86 High 47-70 [facility] Comment on above: Performed By: #### L 100.0100, L500.2500 ####[facility] [address] [place], [address] TOTAL CELLS 100 Normal MANUAL DIFF [facility] Comment on above: Performed By: #### L 100.0100, L500.2500 ####[facility] [address] [place], [address] Carbon dioxide, total [Moles /volume] in Central venous bloodOrdered By: Genia Scott on 11-05-2024 CO2 [Moles/Vol] 26.5 mmol/L 21.0-32.0 [facility] Chloride assayOrdered By: Radha Scott on 11-05-2024 Chloride [Moles/Vol] 105 mmol/L 98-108 [facility] Erythrocyte distribution wid th ratioOrdered By: Genia Scott on 11-05-2024 Erythrocyte distribution width (RBC) [Ratio] 15.4 % High 11.6-14.6 [facility] Erythrocyte distribution wid th standard deviationOrdered By: Genia Scott on 11-05-2024 Erythrocyte distribution width (RBC) [Ratio] 49.2 fl High 35.1-43.9 [facility] Erythrocyte morphology asses smentOrdered By: Genia Scott on 11-05-2024 RBC morphology finding Nom (Bld) NORM C+C NORMAL NORM C&C [facility] Glomerular filtration rate ( GFR) estimation/1.73 sq m using serum, plasma, or whole bOrdered By: Genia Scott on 11-05-2024 GFR/1.73 sq M.predicted among non-blacks MDRD (S/P/Bld) [Vol rate/Area] 44 mL/min/{1.73_m2} Low >60 [facility] deOrdered By: Genia Scott on 11-05-2024 Glucose [Mass/Vol] 87 mg/dL 74-106 [facility] Hematocrit Auto (Bld) [Volum e fraction]Ordered By: Genia Scott on 11-05-2024 Hematocrit (Bld) [Volume fraction] 35.0 % Low 40-54 [facility] Hemoglobin measurementOrdere d By: Genia Scott on 11-05-2024 Hemoglobin (Bld) [Mass/Vol] 11.7 g/dL Low 13.0-16.5 [facility] MCV (mean corpuscular volume ) determinationOrdered By: Genia Scott on 11-05-2024 MCV (RBC) [Entitic vol] 88.2 fL 80-94 [facility] Mean corpuscular hemoglobin (MCH) determinationOrdered By: Genia Scott on 11-05-2024 MCH (RBC) [Entitic mass] 29.5 pg 27.0-32.0 [facility] Platelet countOrdered By: Radha Scott on 11-05-2024 Platelets (Bld) [#/Vol] 225 10*3/uL 150-450 [facility] Platelet estimateOrdered By: Genia Scott on 11-05-2024 Platelets LM Ql (Bld) ADEQUATE ADEQ [facility] Potassium measurement (mass/ volume)Ordered By: Genia Scott on 11-05-2024 Potassium (Unsp spec) [Mass/Vol] 3.4 mmol/L 3.3-5.1 [facility] RBC Auto (Bld) [#/Vol]Ordere d By: Genia Scott on 11-05-2024 RBC (Bld) [#/Vol] 3.97 10*6/uL Low 4.6-6.[address] [facility] Serum creatinine measurement (mass/volume)Ordered By: Genia Scott on 11-05-2024 Creatinine [Mass/Vol] 1.52 mg/dL High 0.70-1.20 [facility] Serum glucose measurement (m ass/volume)Ordered By: Genia Scott on 11-05-2024 Glucose [Mass/Vol] 93 mg/dL 70-99 [facility] Serum or plasma calcium maritza urement (mass/volume)Ordered By: Genia Scott on 11-05-2024 Calcium [Mass/Vol] 9.3 mg/dL 7.6-11.0 [facility] Serum or plasma urea nitroge n measurement (mass/volume)Ordered By: Genia Scott on 11-05-2024 Urea nitrogen [Mass/Vol] 22 mg/dL High 4-19 [facility] Sodium levelOrdered By: America Scott on 11-05-2024 Sodium [Moles/Vol] 141 mmol/L 133-145 [facility] Total cell countOrdered By: Genia Scott on 11-05-2024 Cells counted Molgen (Bld/Tiss) [#] 100 MANUAL DIFF [facility] White blood cell (WBC) count Ordered By: Genia Scott on 11-05-2024 WBC (Bld) [#/Vol] 13.8 10*3/uL High 4.4-11.[address] [facility] Bedside Glucoseon 11-04-2024 FINGERSTICK GLU 106 mg/dL Normal 74-106 [facility] Comment on above: Result Comment: LILLIAN GEMENT OF PATIENT CARE PER NURSING PROTOCOL Performed By: #### L 501.080 ####[facility] [address] [facility] [address] FINGERSTICK GLU 114 mg/dL High 74-106 [facility] Comment on above: Result Comment: LILLIAN GEMENT OF PATIENT CARE PER NURSING PROTOCOL Performed By: #### L 501.080 ####[facility] [address] [facility] [address] FINGERSTICK GLU 90 mg/dL Normal 74-106 [facility] Comment on above: Result Comment: LILLIAN GEMENT OF PATIENT CARE PER NURSING PROTOCOL Performed By: #### L 501.080 ####[facility] [address] [facility] [address] FINGERSTICK GLU 90 mg/dL Normal 74-106 [facility] Comment on above: Result Comment: LILLIAN GEMENT OF PATIENT CARE PER NURSING PROTOCOL Performed By: #### L 501.080 ####[facility] [address] [place], [address] Bilirubin, totalOrdered By: Genia Scott on 11-04-2024 Bilirubin [Mass/Vol] 0.79 mg/dL 0.00-1.30 [facility] CBC W/Diff, Automatedon 10-22 Absolute Lymph 0.75 X10 3/uL Low 0.83-4.51 [facility] Comment on above: Performed By: #### L 500.4050, L100.0100 ####[facility] [address] [place], [address] Absolute Neut 13.0 X10 3/uL High 2.0-7.7 [facility] Comment on above: Performed By: #### L 500.4050, L100.0100 ####[facility] [address] [place], [address] Comprehensive Metabolic Prof ilon 11-04-2024 Albumin [Mass/Vol] 2.6 g/dL Low 3.4-4.8 [facility] Comment on above: Performed By: #### L 500.4050, L100.0100 ####[facility] [address] [place], [address] Albumin/Globulin [Mass ratio] 0.9 {ratio} Normal 0.9-2.4 [facility] Comment on above: Performed By: #### L 500.4050, L100.0100 ####[facility] [address] [place], [address] ALK PHOS 185 U/L High 40-129 [facility] Comment on above: Performed By: #### L 500.4050, L100.0100 ####[facility] [address] [place], [address] ALT [Catalytic activity/Vol] 49 U/L High <=46 [facility] Comment on above: Performed By: #### L 500.4050, L100.0100 ####[facility] [address] [place], [address] AST [Catalytic activity/Vol] 43 U/L High <=37 [facility] Comment on above: Performed By: #### L 500.4050, L100.0100 ####[facility] [address] [place], [address] Bilirubin [Mass/Vol] 0.79 mg/dL Normal 0.00-1.30 [facility] Comment on above: Performed By: #### L 500.4050, L100.0100 ####[facility] [address] [place], [address] BUN/CRE 15.3 RATIO Normal 10-20 [facility] Comment on above: Performed By: #### L 500.4050, L100.0100 ####[facility] [address] [place], [address] Calcium [Mass/Vol] 9.4 mg/dL Normal 7.6-11.0 [facility] Comment on above: Performed By: #### L 500.4050, L100.0100 ####[facility] [address] [place], [address] Chloride [Moles/Vol] 106 mmol/L Normal 98-108 [facility] Comment on above: Performed By: #### L 500.4050, L100.0100 ####[facility] [address] [place], [address] CO2 [Moles/Vol] 23.6 mmol/L Normal 21.0-32.0 [facility] Comment on above: Performed By: #### L 500.4050, L100.0100 ####[facility] [address] [place], [address] Creatinine [Mass/Vol] 1.41 mg/dL High 0.70-1.20 [facility] Comment on above: Performed By: #### L 500.4050, L100.0100 ####[facility] [address] [place], [address] ECRCL 44.15 ml/min Low 50-250 [facility] Comment on above: Performed By: #### L 500.4050, L100.0100 ####[facility] [address] [place], [address] GAP 12 Normal 5-15 [facility] Comment on above: Performed By: #### L 500.4050, L100.0100 ####[facility] [address] [place], [address] GFR/1.73 sq M.predicted among non-blacks MDRD (S/P/Bld) [Vol rate/Area] 48 mL/min/{1.73_m2} Low >60 [facility] Comment on above: Result Comment: mL/m in/1.73m2 CKD-EPI Creatinine Equation (2020) Performed By: #### L 500.4050, L100.0100 ####[facility] [address] [place], [address] Globulin (S) [Mass/Vol] 2.9 g/dL Normal 2.2-4.2 [facility] Comment on above: Performed By: #### L 500.4050, L100.0100 ####[facility] [address] [place], [address] Glucose [Mass/Vol] 92 mg/dL Normal 70-99 [facility] Comment on above: Performed By: #### L 500.4050, L100.0100 ####[facility] [address] [place], [address] Potassium [Moles/Vol] 3.5 mmol/L Normal 3.3-5.1 [facility] Comment on above: Performed By: #### L 500.4050, L100.0100 ####[facility] [address] [place], [address] Sodium [Moles/Vol] 141 mmol/L Normal 133-145 [facility] Comment on above: Performed By: #### L 500.4050, L100.0100 ####[facility] [address] [place], [address] T PROT 5.5 g/dL Low 5.9-8.4 [facility] Comment on above: Performed By: #### L 500.4050, L100.0100 ####[facility] [address] [place], [address] Urea nitrogen [Mass/Vol] 22 mg/dL High 4-19 [facility] Comment on above: Performed By: #### L 500.4050, L100.0100 ####[facility] [address] [place], [address] No Panel InformationOrdered By: Genia Scott on 11-04-2024 43 U/L High <38 [facility] Respiratory Cultureon 2024 RESPC List Antibiotics Las t 48 Hours? flagyl No Streptococcus pneumoniae, beta-hemolytic Streptococcus or Staphylococcus aureus isolated. Microorganism Spec Cult Yeast, not Carine albicans Amount Growth 3+ Normal [facility] Comment on above: Performed By: #### M 100.2000, M100.2400 ####[facility] [address] [place], [address] Serum globulin measurementOr dered By: Genia Scott on 11-04-2024 Globulin (S) [Mass/Vol] 2.9 g/dL 2.2-4.2 [facility] Serum or plasma alanine lofton otransferase (ALT) measurementOrdered By: Genia Scott on 11-04-2024 ALT [Catalytic activity/Vol] 49 U/L High <47 [facility] Serum or plasma albumin maritza urement (mass/volume)Ordered By: Genia Scott on 11-04-2024 Albumin [Mass/Vol] 2.6 g/dL Low 3.4-4.8 [facility] Serum or plasma albumin/glob ulin mass ratioOrdered By: Genia Scott on 11-04-2024 Albumin/Globulin [Mass ratio] 0.9 {ratio} 0.9-2.4 [facility] Serum or plasma alkaline awa sphatase measurementOrdered By: Genia Scott on 11-04-2024 ALP [Catalytic activity/Vol] 185 U/L High 40-129 [facility] Total proteinOrdered By: Keisha Scott on 11-04-2024 Protein [Mass/Vol] 5.5 g/dL Low 5.9-8.4 [facility] Basic Metabolic Profile (BMP )on 11-03-2024 BUN/CRE 13.4 RATIO Normal 10-20 [facility] Comment on above: Performed By: #### L 501.5200, L501.2300, L500.2500, L100.0500 ####[facility] [address] [place], [address] Calcium [Mass/Vol] 9.1 mg/dL Normal 7.6-11.0 [facility] Comment on above: Performed By: #### L 501.5200, L501.2300, L500.2500, L100.0500 ####[facility] [address] [place], [address] Chloride [Moles/Vol] 108 mmol/L Normal 98-108 [facility] Comment on above: Performed By: #### L 501.5200, L501.2300, L500.2500, L100.0500 ####[facility] [address] [place], [address] CO2 [Moles/Vol] 21.7 mmol/L Normal 21.0-32.0 [facility] Comment on above: Performed By: #### L 501.5200, L501.2300, L500.2500, L100.0500 ####[facility] [address] [place], [address] Creatinine [Mass/Vol] 1.37 mg/dL High 0.70-1.20 [facility] Comment on above: Performed By: #### L 501.5200, L501.2300, L500.2500, L100.0500 ####[facility] [address] [place], [address] ECRCL 46.05 ml/min Low 50-250 [facility] Comment on above: Performed By: #### L 501.5200, L501.2300, L500.2500, L100.0500 ####[facility] [address] [place], [address] GAP 13 Normal 5-15 [facility] Comment on above: Performed By: #### L 501.5200, L501.2300, L500.2500, L100.0500 ####[facility] [address] [place], [address] GFR/1.73 sq M.predicted among non-blacks MDRD (S/P/Bld) [Vol rate/Area] 50 mL/min/{1.73_m2} Low >60 [facility] Comment on above: Result Comment: mL/m in/1.73m2 CKD-EPI Creatinine Equation (2020) Performed By: #### L 501.5200, L501.2300, L500.2500, L100.0500 ####[facility] [address] [place], [address] Glucose [Mass/Vol] 107 mg/dL High 70-99 [facility] Comment on above: Performed By: #### L 501.5200, L501.2300, L500.2500, L100.0500 ####[facility] [address] [place], [address] Potassium [Moles/Vol] 3.9 mmol/L Normal 3.3-5.1 [facility] Comment on above: Performed By: #### L 501.5200, L501.2300, L500.2500, L100.0500 ####[facility] [address] [place], [address] Sodium [Moles/Vol] 142 mmol/L Normal 133-145 [facility] Comment on above: Performed By: #### L 501.5200, L501.2300, L500.2500, L100.0500 ####[facility] [address] [place], [address] Urea nitrogen [Mass/Vol] 18 mg/dL Normal 4-19 [facility] Comment on above: Performed By: #### L 501.5200, L501.2300, L500.2500, L100.0500 ####[facility] [address] [place], [address] Bedside Glucoseon 11-03-2024 FINGERSTICK GLU 105 mg/dL Normal 74-106 [facility] Comment on above: Result Comment: LILLIAN GEMENT OF PATIENT CARE PER NURSING PROTOCOL Performed By: #### L 501.080 ####[facility] [address] [place], [address] FINGERSTICK GLU 100 mg/dL Normal 74-106 [facility] Comment on above: Result Comment: LILLIAN GEMENT OF PATIENT CARE PER NURSING PROTOCOL Performed By: #### L 501.080 ####[facility] [address] [place], [address] FINGERSTICK GLU 117 mg/dL High 74-106 [facility] Comment on above: Result Comment: LILLIAN GEMENT OF PATIENT CARE PER NURSING PROTOCOL Performed By: #### L 501.080 ####[facility] [address] [place], [address] FINGERSTICK GLU 102 mg/dL Normal 74-106 [facility] Comment on above: Result Comment: LILLIAN GEMENT OF PATIENT CARE PER NURSING PROTOCOL Performed By: #### L 501.080 ####[facility] [address] [place], [address] CBC-Complete Blood Cnt No Di ffon 11-03-2024 Erythrocyte distribution width (RBC) [Ratio] 15.4 % High 11.6-14.6 [facility] Comment on above: Performed By: #### L 501.5200, L501.2300, L500.2500, L100.0500 ####[facility] [address] [place], [address] Hematocrit (Bld) [Volume fraction] 38.7 % Low 40-54 [facility] Comment on above: Performed By: #### L 501.5200, L501.2300, L500.2500, L100.0500 ####[facility] [address] [place], [address] Hemoglobin (Bld) [Mass/Vol] 13.0 g/dL Normal 13.0-16.5 [facility] Comment on above: Performed By: #### L 501.5200, L501.2300, L500.2500, L100.0500 ####[facility] [address] [place], [address] MCH (RBC) [Entitic mass] 29.2 pg Normal 27.0-32.0 [facility] Comment on above: Performed By: #### L 501.5200, L501.2300, L500.2500, L100.0500 ####[facility] [address] [place], [address] MCHC (RBC) [Mass/Vol] 33.6 g/dL Normal 32-36 [facility] Comment on above: Performed By: #### L 501.5200, L501.2300, L500.2500, L100.0500 ####[facility] [address] [place], [address] MCV (RBC) [Entitic vol] 87.0 fL Normal 80-94 [facility] Comment on above: Performed By: #### L 501.5200, L501.2300, L500.2500, L100.0500 ####[facility] [address] [place], [address] Platelet mean volume (Bld) [Entitic vol] 10.0 fL Normal 6.2-12.0 [facility] Comment on above: Performed By: #### L 501.5200, L501.2300, L500.2500, L100.0500 ####[facility] [address] [place], [address] Platelets (Bld) [#/Vol] 197 10*3/uL Normal 150-450 [facility] Comment on above: Performed By: #### L 501.5200, L501.2300, L500.2500, L100.0500 ####[facility] [address] [place], [address] RBC (Bld) [#/Vol] 4.45 10*6/uL Low 4.6-6.[address] [facility] Comment on above: Performed By: #### L 501.5200, L501.2300, L500.2500, L100.0500 ####[facility] [address] [place], [address] RDW SD 49.1 fl High 35.1-43.9 [facility] Comment on above: Performed By: #### L 501.5200, L501.2300, L500.2500, L100.0500 ####[facility] [address] [place], [address] WBC (Bld) [#/Vol] 16.4 10*3/uL High 4.4-11.[address] [facility] Comment on above: Performed By: #### L 501.5200, L501.2300, L500.2500, L100.0500 ####[facility] [address] [place], [address] Magnesiumon 11-03-2024 Magnesium [Mass/Vol] 1.7 mg/dL Normal 1.5-2.2 [facility] Comment on above: Performed By: #### L 501.5200, L501.2300, L500.2500, L100.0500 ####[facility] [address] [place], [address] Magnesium measurement (mass/ volume)Ordered By: Genia Scott on 11-03-2024 Magnesium (Unsp spec) [Mass/Vol] 1.7 mg/dL 1.5-2.2 [facility] Phosphoruson 11-03-2024 Phosphate [Mass/Vol] 3.1 mg/dL Normal 2.7-4.5 [facility] Comment on above: Performed By: #### L 501.5200, L501.2300, L500.2500, L100.0500 ####[facility] [address] [place], [place], [id number] Pro- Brain NATRIURETIC PEPTI Zach 11-03-2024 Natriuretic peptide B (Bld) [Mass/Vol] 6060 pg/mL High <=1800 [facility] Comment on above: Result Comment: Hear t Failure Unlikely: < 300 pg/mLHeart Failure Likely< 50 Years: > 450 pg/mL50-75 Years: > 900 pg/mL>75 Years: > 1800 pg/mL Performed By: #### L 503.7505 ####[facility] [address] [place], [place], [address] Assessment of wrist artery p atency prior to arterial punctureOrdered By: Genia Scott on 11-02-2024 Arterial patency Wrist artery --pre arterial puncture Positive [facility] Bedside Glucoseon 11-02-2024 FINGERSTICK GLU 109 mg/dL High 74-106 [facility] Comment on above: Result Comment: LILLIAN GEMENT OF PATIENT CARE PER NURSING PROTOCOL Performed By: #### L 501.080 ####[facility] [address] [place], [address] FINGERSTICK GLU 108 mg/dL High 74-106 [facility] Comment on above: Result Comment: LILLIAN GEMENT OF PATIENT CARE PER NURSING PROTOCOL Performed By: #### L 501.080 ####[facility] [address] [place], [address] FINGERSTICK GLU 121 mg/dL High 74-106 [facility] Comment on above: Result Comment: LILLIAN GEMENT OF PATIENT CARE PER NURSING PROTOCOL Performed By: #### L 501.080 ####[facility] [address] [place], [address] FINGERSTICK GLU 96 mg/dL Normal 74-106 [facility] Comment on above: Result Comment: LILLIAN GEMENT OF PATIENT CARE PER NURSING PROTOCOL Performed By: #### L 501.080 ####[facility] [address] [place], [address] Blood Gases by [facility] 025 RICHARD TEST Positive Normal [facility] Comment on above: Performed By: #### L 9000.0800 ####[facility] [address] [place], [address] Base excess Calc (Bld) [Moles/Vol] 1 mmol/L Normal -2 to +2 [facility] Comment on above: Performed By: #### L 9000.0800 ####[facility] [address] [place], [address] Blood Gas Type ART Normal [facility] Comment on above: Performed By: #### L 9000.0800 ####[facility] [address] [place], [address] CO2 [Moles/Vol] 25 mmol/L Normal [facility] Comment on above: Performed By: #### L 9000.0800 ####[facility] [address] [place], [address] FI02 40.0 Normal [facility] Comment on above: Performed By: #### L 0.0800 ####[facility] [address] [place], [address] HCO3 (Bld) [Moles/Vol] 24.2 mmol/L Normal 22-26 [facility] Comment on above: Performed By: #### L 0.0800 ####[facility] [address] [place], [address] Mode Not entered [facility] Comment on above: Performed By: #### L 0.0800 ####[facility] [address] [place], [address] O2 Delivery Dev BiPAP Normal [facility] Comment on above: Performed By: #### L 0.0800 ####[facility] [address] [place], [address] pCO2 32.8 mmHg Low 35-45 [facility] Comment on above: Performed By: #### L 9000.0800 ####[facility] [address] [place], [address] PEEP 6 Normal [facility] Comment on above: Performed By: #### L 9000.0800 ####[facility] [address] [place], [address] pH (Bld) 7.48 [pH] High 7.35-7.45 [facility] Comment on above: Performed By: #### L 9000.0800 ####[facility] [address] [place], [address] PIP 12 Normal [facility] Comment on above: Performed By: #### L 9000.0800 ####[facility] [address] [place], [address] PO2 78 mmHG Normal 75-100 [facility] Comment on above: Performed By: #### L 9000.0800 ####[facility] [address] [place], [address] RR 12 Normal [facility] Comment on above: Performed By: #### L 9000.0800 ####[facility] [address] [place], [address] SITE R Radial Normal [facility] Comment on above: Performed By: #### L 9000.0800 ####[facility] [address] [place], [address] SO2 96 Normal 95-99 [facility] Comment on above: Performed By: #### L 9000.0800 ####[facility] [address] [place], [address] Blood base excess determinat ionOrdered By: Genia Scott on 11-02-2024 Base excess Calc (BldV) [Moles/Vol] 1 mmol/L -2-2 [facility] Blood bicarbonate measuremen tOrdered By: Genia Scott on 11-02-2024 HCO3 (Bld) [Moles/Vol] 24.2 mmol/L 22-26 [facility] Blood manual differential co mment interpretation (narrative result)Ordered By: Khai Bose on 11-02-2024 Manual differential comment [place] (Bld) [Interp] SCANNED [facility] Blood polychromasia detectio n by light microscopyOrdered By: hKai Bose on 11-02-2024 Polychromasia LM Ql (Bld) RARE [facility] CBC W/Diff, Automatedon 10-22 ATYPICAL LYMPH 2+ Normal [facility] Comment on above: Performed By: #### L 501.5200, L500.4050, L100.0100 ####[facility] [address] [place], [address] PATH REV May foll Normal [facility] Comment on above: Performed By: #### L 501.5200, L500.4050, L100.0100 ####[facility] [address] [place], [address] Absolute Lymph 1.01 X10 3/uL Normal 0.83-4.51 [facility] Comment on above: Performed By: #### L 501.5200, L500.4050, L100.0100 ####[facility] [address] [place], [address] Absolute Neut 9.1 X10 3/uL High 2.0-7.7 [facility] Comment on above: Performed By: #### L 501.5200, L500.4050, L100.0100 ####[facility] [address] [place], [address] SMEAR COMMENT SCANNED Normal [facility] Comment on above: Result Comment: ATYP ICAL LYMPHS 1+ Performed By: #### L 501.5200, L500.4050, L100.0100 ####[facility] [address] [place], [address] ACANTHOCYTE RARE Normal [facility] Comment on above: Performed By: #### L 501.5200, L500.4050, L100.0100 ####[facility] [address] [place], [address] OVALOCYTE RAR Normal [facility] Comment on above: Performed By: #### L 501.5200, L500.4050, L100.0100 ####[facility] [address] [place], [address] POLYCHROMASIA RARE Normal [facility] Comment on above: Performed By: #### L 501.5200, L500.4050, L100.0100 ####[facility] [address] [place], [address] BEAU CELLS RARE Normal [facility] Comment on above: Performed By: #### L 501.5200, L500.4050, L100.0100 ####[facility] [address] [place], [address] PLT EST ADEQUATE Normal ADEQ [facility] Comment on above: Performed By: #### L 501.5200, L500.4050, L100.0100 ####[facility] [address] [place], [address] PLT MORPH GIANT Normal [facility] Comment on above: Performed By: #### L 501.5200, L500.4050, L100.0100 ####[facility] [address] [place], [address] SMUDGE CELLS 2+ Normal [facility] Comment on above: Performed By: #### L 501.5200, L500.4050, L100.0100 ####[facility] [address] [place], [address] Eosinophils/100 WBC (Bld) 2 % Normal 0-5 [facility] Comment on above: Performed By: #### L 501.5200, L500.4050, L100.0100 ####[facility] [address] [place], [address] Lymphocytes (Bld) [#/Vol] 9 10*3/uL Low 19-41 [facility] Comment on above: Performed By: #### L 501.5200, L500.4050, L100.0100 ####[facility] [address] [place], [address] META 1 Normal 0-1 [facility] Comment on above: Performed By: #### L 501.5200, L500.4050, L100.0100 ####[facility] [address] [place], [address] Metamyelocytes/100 WBC (Bld) 1 % High 0-0 [facility] Comment on above: Performed By: #### L 501.5200, L500.4050, L100.0100 ####[facility] [address] [place], [address] MONOCYTE 6 Normal 0-10 [facility] Comment on above: Performed By: #### L 501.5200, L500.4050, L100.0100 ####[facility] [address] [place], [address] SEGS 81 High 47-70 [facility] Comment on above: Performed By: #### L 501.5200, L500.4050, L100.0100 ####[facility] [address] [place], [address] TOTAL CELLS 100 Normal MANUAL DIFF [facility] Comment on above: Performed By: #### L 501.5200, L500.4050, L100.0100 ####[facility] [address] [place], [address] Chest 1 View (Portable)on Chest 1 View (Portable) Normal [facility] Comprehensive Metabolic Prof ilon 11-02-2024 Albumin [Mass/Vol] 2.5 g/dL Low 3.4-4.8 [facility] Comment on above: Performed By: #### L 501.5200, L500.4050, L100.0100 ####[facility] [address] [place], [address] Albumin/Globulin [Mass ratio] 1.0 {ratio} Normal 0.9-2.4 [facility] Comment on above: Performed By: #### L 501.5200, L500.4050, L100.0100 ####[facility] [address] [place], [address] ALK PHOS 179 U/L High 40-129 [facility] Comment on above: Performed By: #### L 501.5200, L500.4050, L100.0100 ####[facility] [address] [place], [address] ALT [Catalytic activity/Vol] 79 U/L High <=46 [facility] Comment on above: Performed By: #### L 501.5200, L500.4050, L100.0100 ####[facility] [address] [place], [address] AST [Catalytic activity/Vol] 67 U/L High <=37 [facility] Comment on above: Performed By: #### L 501.5200, L500.4050, L100.0100 ####[facility] [address] [place], [address] Bilirubin [Mass/Vol] 1.01 mg/dL Normal 0.00-1.30 [facility] Comment on above: Performed By: #### L 501.5200, L500.4050, L100.0100 ####[facility] [address] [place], [address] BUN/CRE 16.3 RATIO Normal 10-20 [facility] Comment on above: Performed By: #### L 501.5200, L500.4050, L100.0100 ####[facility] [address] [place], [address] Calcium [Mass/Vol] 8.4 mg/dL Normal 7.6-11.0 [facility] Comment on above: Performed By: #### L 501.5200, L500.4050, L100.0100 ####[facility] [address] [place], [address] Chloride [Moles/Vol] 109 mmol/L High 98-108 [facility] Comment on above: Performed By: #### L 501.5200, L500.4050, L100.0100 ####[facility] [address] [place], [address] CO2 [Moles/Vol] 22.8 mmol/L Normal 21.0-32.0 [facility] Comment on above: Performed By: #### L 501.5200, L500.4050, L100.0100 ####[facility] [address] [place], [address] Creatinine [Mass/Vol] 1.04 mg/dL Normal 0.70-1.20 [facility] Comment on above: Performed By: #### L 501.5200, L500.4050, L100.0100 ####[facility] [address] [place], [address] ECRCL 59.72 ml/min Normal 50-250 [facility] Comment on above: Performed By: #### L 501.5200, L500.4050, L100.0100 ####[facility] [address] [place], [address] GAP 9 Normal 5-15 [facility] Comment on above: Performed By: #### L 501.5200, L500.4050, L100.0100 ####[facility] [address] [place], [address] GFR/1.73 sq M.predicted among non-blacks MDRD (S/P/Bld) [Vol rate/Area] 69 mL/min/{1.73_m2} Normal >60 [facility] Comment on above: Result Comment: mL/m in/1.73m2 CKD-EPI Creatinine Equation (2020) Performed By: #### L 501.5200, L500.4050, L100.0100 ####[facility] [address] [place], [address] Globulin (S) [Mass/Vol] 2.6 g/dL Normal 2.2-4.2 [facility] Comment on above: Performed By: #### L 501.5200, L500.4050, L100.0100 ####[facility] [address] [place], [address] Glucose [Mass/Vol] 136 mg/dL High 70-99 [facility] Comment on above: Performed By: #### L 501.5200, L500.4050, L100.0100 ####[facility] [address] [place], [address] Potassium [Moles/Vol] 3.7 mmol/L Normal 3.3-5.1 [facility] Comment on above: Performed By: #### L 501.5200, L500.4050, L100.0100 ####[facility] [address] [place], [address] Sodium [Moles/Vol] 141 mmol/L Normal 133-145 [facility] Comment on above: Performed By: #### L 501.5200, L500.4050, L100.0100 ####[facility] [address] [place], [address] T PROT 5.1 g/dL Low 5.9-8.4 [facility] Comment on above: Performed By: #### L 501.5200, L500.4050, L100.0100 ####[facility] [address] [place], [address] Urea nitrogen [Mass/Vol] 17 mg/dL Normal 4-19 [facility] Comment on above: Performed By: #### L 501.5200, L500.4050, L100.0100 ####[facility] [address] [place], [address] Crenated erythrocyte detecti on by light microscopyOrdered By: Khai Bose on 11-02-2024 Beau cells LM Ql (Bld) RARE [facility] Culture, Anaerobic Any Sourc rohan 11-02-2024 CUAN Normal [facility] Comment on above: Performed By: #### M 100.4001, M100.1999, M100.2900 ####[facility] [address] [place], [address] Gram Stainon 11-02-2024 GS List Antibiotics Las t 48 Hours? flagyl Acceptable Specimen? Yes (<25 Epithelial cells per/lpf) Gram Stain 4+ Yeast Like Organisms Rare Epithelial cells No White Blood Cells Normal [facility] Comment on above: Performed By: #### M 100.1999, M100.2400 ####[facility] [address] [place], [address] Gram stainOrdered By: Fernanda Triplett on 11-02-2024 Microscopic observation Gram stain Nom (Unsp spec) [facility] Magnesiumon 11-02-2024 Magnesium [Mass/Vol] 1.4 mg/dL Low 1.5-2.2 [facility] Comment on above: Performed By: #### L 501.5200, L500.4050, L100.0100 ####[facility] [address] [place], [address] Measurement, pHOrdered By: Yane Scott on 11-02-2024 pH (Unsp spec) 7.48 [pH] High 7.35-7.45 [facility] Microbial respiratory cultur eOrdered By: Fernanda Triplett on 11-02-2024 Microorganism identified Cx Nom (Unsp spec) Yeast, not Carine albicans Abnormal [facility] Natriuretic peptide.B prohor adebayo N-Terminal [Mass/volume] in Serum or PlasmaOrdered By: Arlin Paniagua on 11-02-2024 Natriuretic peptide.B prohormone N-Terminal [Mass/Vol] 6060 pg/mL High <1800 [facility] No Panel InformationOrdered By: Genia Scott on 11-02-2024 ART [facility] R Radial [facility] Not entered [facility] BiPAP [facility] 12 [facility] 6 [facility] Ovalocyte detectionOrdered B y: Khai Bose on 11-02-2024 Ovalocytes LM Ql (Bld) RAR [facility] Phosphoruson 11-02-2024 Phosphate [Mass/Vol] 2.0 mg/dL Low 2.7-4.5 [facility] Comment on above: Performed By: #### L 501.2300 ####[facility] [address] [place], [address] Platelet morphologyOrdered B y: Khai Bose on 11-02-2024 Platelet morphology finding Nom (Bld) GIANT [facility] Review by pathologistOrdered By: Khai Bose on 11-02-2024 Pathologist review [place] (Unsp spec) [Interp] May [facility] Smudge cell detectionOrdered By: Khai Bose on 11-02-2024 Smudge cells LM Ql (Bld) 2+ [facility] Total carbon dioxide measure mentOrdered By: Genia Scott on 11-02-2024 CO2 [Moles/Vol] 25 mmol/L [facility] Venous Duplex US - Kelley Extre mon 11-02-2024 Venous Duplex US - Kelley Extrem Normal [facility] Venous duplex ultrasound rep ortOrdered By: Ryder Leung on 11-02-2024 US Vein [facility] Other Phone: Automated lymphocyte count a s percentage of total leukocytesOrdered By: Khai Bose on 11-01-2024 Lymphocytes/100 WBC Auto (Unsp spec) 9.7 % Low 19-41 [facility] Basic Metabolic Profile (BMP )on 11-01-2024 BUN/CRE 18.4 RATIO Normal 10-20 [facility] Comment on above: Performed By: #### L 100.0100, L500.2500 ####[facility] [address] [place], [address] Calcium [Mass/Vol] 8.9 mg/dL Normal 7.6-11.0 [facility] Comment on above: Performed By: #### L 100.0100, L500.2500 ####[facility] [address] [place], [address] Chloride [Moles/Vol] 108 mmol/L Normal 98-108 [facility] Comment on above: Performed By: #### L 100.0100, L500.2500 ####[facility] [address] [place], [address] CO2 [Moles/Vol] 22.1 mmol/L Normal 21.0-32.0 [facility] Comment on above: Performed By: #### L 100.0100, L500.2500 ####[facility] [address] [place], [address] Creatinine [Mass/Vol] 1.06 mg/dL Normal 0.70-1.20 [facility] Comment on above: Performed By: #### L 100.0100, L500.2500 ####[facility] [address] [place], [address] ECRCL 58.87 ml/min Normal 50-250 [facility] Comment on above: Performed By: #### L 100.0100, L500.2500 ####[facility] [address] [place], [address] GAP 10 Normal 5-15 [facility] Comment on above: Performed By: #### L 100.0100, L500.2500 ####[facility] [address] [place], [address] GFR/1.73 sq M.predicted among non-blacks MDRD (S/P/Bld) [Vol rate/Area] 68 mL/min/{1.73_m2} Normal >60 [facility] Comment on above: Result Comment: mL/m in/1.73m2 CKD-EPI Creatinine Equation (2020) Performed By: #### L 100.0100, L500.2500 ####[facility] [address] [place], [address] Glucose [Mass/Vol] 122 mg/dL High 70-99 [facility] Comment on above: Performed By: #### L 100.0100, L500.2500 ####[facility] [address] [place], [address] Potassium [Moles/Vol] 3.7 mmol/L Normal 3.3-5.1 [facility] Comment on above: Performed By: #### L 100.0100, L500.2500 ####[facility] [address] [place], [address] Sodium [Moles/Vol] 140 mmol/L Normal 133-145 [facility] Comment on above: Performed By: #### L 100.0100, L500.2500 ####[facility] [address] [place], [address] Urea nitrogen [Mass/Vol] 20 mg/dL High 4-19 [facility] Comment on above: Performed By: #### L 100.0100, L500.2500 ####[facility] [address] [place], [address] Basophil percentageOrdered B y: Khaimoe Bose on 11-01-2024 Basophils/100 WBC (Bld) 0.8 % 0-1 [facility] Bedside Glucoseon 11-01-2024 FINGERSTICK GLU 102 mg/dL Normal 74-106 [facility] Comment on above: Result Comment: LILLIAN GEMENT OF PATIENT CARE PER NURSING PROTOCOL Performed By: #### L 501.080 ####[facility] [address] [place], [address] FINGERSTICK GLU 107 mg/dL High 74-106 [facility] Comment on above: Result Comment: LILLIAN GEMENT OF PATIENT CARE PER NURSING PROTOCOL Performed By: #### L 501.080 ####[facility] [address] [place], [address] FINGERSTICK GLU 115 mg/dL High 74-106 [facility] Comment on above: Result Comment: LILLIAN GEMENT OF PATIENT CARE PER NURSING PROTOCOL Performed By: #### L 501.080 ####[facility] [address] [place], [address] FINGERSTICK GLU 113 mg/dL High 74-106 [facility] Comment on above: Result Comment: LILLIAN GEMENT OF PATIENT CARE PER NURSING PROTOCOL Performed By: #### L 501.080 ####[facility] [address] [place], [address] Blood Gases by [facility] 025 RICHARD TEST Positive Normal [facility] Comment on above: Performed By: #### L 9000.0800 ####[facility] [address] [place], [address] Base excess Calc (Bld) [Moles/Vol] 5 mmol/L High -2 to +2 [facility] Comment on above: Performed By: #### L 9000.0800 ####[facility] [address] [place], [address] Blood Gas Type ART Normal [facility] Comment on above: Performed By: #### L 9000.0800 ####[facility] [address] [place], [address] CO2 [Moles/Vol] 30 mmol/L Normal [facility] Comment on above: Performed By: #### L 9000.0800 ####[facility] [address] [place], [address] FI02 2.0 Normal [facility] Comment on above: Performed By: #### L 9000.0800 ####[facility] [address] [place], [address] HCO3 (Bld) [Moles/Vol] 28.8 mmol/L High 22-26 [facility] Comment on above: Performed By: #### L 9000.0800 ####[facility] [address] [place], [address] Mode Not entered Normal [facility] Comment on above: Performed By: #### L 9000.0800 ####[facility] [address] [place], [address] O2 Delivery Dev Cannula Normal [facility] Comment on above: Performed By: #### L 9000.0800 ####[facility] [address] [place], [address] pCO2 41.0 mmHg Normal 35-45 [facility] Comment on above: Performed By: #### L 9000.0800 ####[facility] [address] [place], [address] pH (Bld) 7.45 [pH] Normal 7.35-7.45 [facility] Comment on above: Performed By: #### L 9000.0800 ####[facility] [address] [place], [address] PO2 95 mmHG Normal 75-100 [facility] Comment on above: Performed By: #### L 9000.0800 ####[facility] [address] [place], [address] SITE L Radial Normal [facility] Comment on above: Performed By: #### L 9000.0800 ####[facility] [address] [place], [address] SO2 98 Normal 95-99 [facility] Comment on above: Performed By: #### L 9000.0800 ####[facility] [address] [place], [address] CBC W/Diff, Automatedon 09- Absolute Lymph 1.12 X10 3/uL Normal 0.83-4.51 [facility] Comment on above: Performed By: #### L 100.0100, L500.2500 ####[facility] [address] [place], [address] Absolute Neut 8.9 X10 3/uL High 2.0-7.7 [facility] Comment on above: Performed By: #### L 100.0100, L500.2500 ####[facility] [address] [place], [address] Basophils/100 WBC (Bld) 0.8 % Normal 0-1 [facility] Comment on above: Performed By: #### L 100.0100, L500.2500 ####[facility] [address] [place], [address] Eosinophils/100 WBC (Bld) 2.2 % Normal 0-5 [facility] Comment on above: Performed By: #### L 100.0100, L500.2500 ####[facility] [address] [place], [address] Erythrocyte distribution width (RBC) [Ratio] 15.7 % High 11.6-14.6 [facility] Comment on above: Performed By: #### L 100.0100, L500.2500 ####[facility] [address] [place], [address] Hematocrit (Bld) [Volume fraction] 37.9 % Low 40-54 [facility] Comment on above: Performed By: #### L 100.0100, L500.2500 ####[facility] [address] [place], [address] Hemoglobin (Bld) [Mass/Vol] 12.7 g/dL Low 13.0-16.5 [facility] Comment on above: Performed By: #### L 100.0100, L500.2500 ####[facility] [address] [place], [address] IG% 2.500 High 0.0-0.9 [facility] Comment on above: Result Comment: IG% - Immature Granulocytes (promyelocytes, myelocytes andmetamyelocytes) > 1% indicates that a LEFT SHIFT is Present. Performed By: #### L 100.0100, L500.2500 ####[facility] [address] [place], [address] Lymphocytes/100 WBC (Bld) 9.7 % Low 19-41 [facility] Comment on above: Performed By: #### L 100.0100, L500.2500 ####[facility] [address] [place], [address] MCH (RBC) [Entitic mass] 29.5 pg Normal 27.0-32.0 [facility] Comment on above: Performed By: #### L 100.0100, L500.2500 ####[facility] [address] [place], [address] MCHC (RBC) [Mass/Vol] 33.5 g/dL Normal 32-36 [facility] Comment on above: Performed By: #### L 100.0100, L500.2500 ####[facility] [address] [place], [address] MCV (RBC) [Entitic vol] 87.9 fL Normal 80-94 [facility] Comment on above: Performed By: #### L 100.0100, L500.2500 ####[facility] [address] [place], [address] Monocytes/100 WBC (Bld) 7.7 % Normal 0-10 [facility] Comment on above: Performed By: #### L 100.0100, L500.2500 ####[facility] [address] [place], [address] Neutrophils/100 WBC (Bld) 77.1 % High 47-70 [facility] Comment on above: Performed By: #### L 100.0100, L500.2500 ####[facility] [address] [place], [address] Nucleated RBC (Bld) [#/Vol] 0 10*3/uL Normal 0-5 [facility] Comment on above: Performed By: #### L 100.0100, L500.2500 ####[facility] [address] [place], [address] Platelet mean volume (Bld) [Entitic vol] 10.1 fL Normal 6.2-12.0 [facility] Comment on above: Performed By: #### L 100.0100, L500.2500 ####[facility] [address] [place], [address] Platelets (Bld) [#/Vol] 168 10*3/uL Normal 150-450 [facility] Comment on above: Performed By: #### L 100.0100, L500.2500 ####[facility] [address] [place], [address] RBC (Bld) [#/Vol] 4.31 10*6/uL Low 4.6-6.[address] [facility] Comment on above: Performed By: #### L 100.0100, L500.2500 ####[facility] [address] [place], [address] RDW SD 50.8 fl High 35.1-43.9 [facility] Comment on above: Performed By: #### L 100.0100, L500.2500 ####[facility] [address] [place], [address] WBC (Bld) [#/Vol] 11.6 10*3/uL High 4.4-11.[address] [facility] Comment on above: Performed By: #### L 100.0100, L500.2500 ####[facility] [address] [place], [address] Culture, Blood (WB)on 2024 CUB Blood cultures x2, f rom two different sites No growth in 5 days. Normal [facility] Comment on above: Performed By: #### M 200.1000 ####[facility] [address] [place], [address] Eosinophil percentageOrdered By: Khaialana Bose on 11-01-2024 Eosinophils/100 WBC (Bld) 2.2 % 0-5 [facility] Immature granulocytes/100 WB C Auto (Bld)Ordered By: Khaimoe Bose on 11-01-2024 Immature granulocytes/100 WBC (Bld) 2.500 % High 0.0-0.9 [facility] Monocyte percentageOrdered B y: Khai Bose on 11-01-2024 Monocytes/100 WBC (Bld) 7.7 % 0-10 [facility] Bedside Glucoseon 10-31-2024 FINGERSTICK GLU 118 mg/dL High 74-106 [facility] Comment on above: Result Comment: LILLIAN GEMENT OF PATIENT CARE PER NURSING PROTOCOL Performed By: #### L 501.080 ####[facility] [address] [place], [address] FINGERSTICK GLU 126 mg/dL High 74-106 [facility] Comment on above: Result Comment: LILLIAN GEMENT OF PATIENT CARE PER NURSING PROTOCOL Performed By: #### L 501.080 ####[facility] [address] [place], [address] FINGERSTICK GLU 128 mg/dL High 74-106 [facility] Comment on above: Result Comment: LILLIAN GEMENT OF PATIENT CARE PER NURSING PROTOCOL Performed By: #### L 501.080 ####[facility] [address] [place], [address] FINGERSTICK GLU 144 mg/dL High 74-106 [facility] Comment on above: Result Comment: LILLIAN GEMENT OF PATIENT CARE PER NURSING PROTOCOL Performed By: #### L 501.080 ####[facility] [address] [place], [address] FINGERSTICK GLU 107 mg/dL High 74-106 [facility] Comment on above: Result Comment: LILLIAN KUHN OF PATIENT CARE PER NURSING PROTOCOL Performed By: #### L 501.080 ####[facility] [address] [place], [address] Body Fluid Culton 10-31-2024 BFC Normal [facility] Comment on above: Performed By: #### M 100.4001, M100.2000, M100.2900 ####[facility] [address] [place], [address] CBC W/Diff, Automatedon 10-22 Absolute Lymph 0.73 X10 3/uL Low 0.83-4.51 [facility] Comment on above: Performed By: #### L 500.4050, L100.0100 ####[facility] [address] [place], [address] Absolute Neut 9.5 X10 3/uL High 2.0-7.7 [facility] Comment on above: Performed By: #### L 500.4050, L100.0100 ####[facility] [address] [place], [address] Basophils/100 WBC (Bld) 0.7 % Normal 0-1 [facility] Comment on above: Performed By: #### L 500.4050, L100.0100 ####[facility] [address] [place], [address] Eosinophils/100 WBC (Bld) 2.0 % Normal 0-5 [facility] Comment on above: Performed By: #### L 500.4050, L100.0100 ####[facility] [address] [place], [address] Erythrocyte distribution width (RBC) [Ratio] 15.7 % High 11.6-14.6 [facility] Comment on above: Performed By: #### L 500.4050, L100.0100 ####[facility] [address] [place], [address] Hematocrit (Bld) [Volume fraction] 36.0 % Low 40-54 [facility] Comment on above: Performed By: #### L 500.4050, L100.0100 ####[facility] [address] [place], [address] Hemoglobin (Bld) [Mass/Vol] 11.9 g/dL Low 13.0-16.5 [facility] Comment on above: Performed By: #### L 500.4050, L100.0100 ####[facility] [address] [place], [address] IG% 1.200 High 0.0-0.9 [facility] Comment on above: Result Comment: IG% - Immature Granulocytes (promyelocytes, myelocytes andmetamyelocytes) > 1% indicates that a LEFT SHIFT is Present. Performed By: #### L 500.4050, L100.0100 ####[facility] [address] [place], [address] Lymphocytes/100 WBC (Bld) 6.4 % Low 19-41 [facility] Comment on above: Performed By: #### L 500.4050, L100.0100 ####[facility] [address] [place], [address] MCH (RBC) [Entitic mass] 29.2 pg Normal 27.0-32.0 [facility] Comment on above: Performed By: #### L 500.4050, L100.0100 ####[facility] [address] [place], [address] MCHC (RBC) [Mass/Vol] 33.1 g/dL Normal 32-36 [facility] Comment on above: Performed By: #### L 500.4050, L100.0100 ####[facility] [address] [place], [address] MCV (RBC) [Entitic vol] 88.5 fL Normal 80-94 [facility] Comment on above: Performed By: #### L 500.4050, L100.0100 ####[facility] [address] [place], [address] Monocytes/100 WBC (Bld) 6.2 % Normal 0-10 [facility] Comment on above: Performed By: #### L 500.4050, L100.0100 ####[facility] [address] [place], [address] Neutrophils/100 WBC (Bld) 83.5 % High 47-70 [facility] Comment on above: Performed By: #### L 500.4050, L100.0100 ####[facility] [address] [place], [address] Nucleated RBC (Bld) [#/Vol] 0 10*3/uL Normal 0-5 [facility] Comment on above: Performed By: #### L 500.4050, L100.0100 ####[facility] [address] [place], [address] Platelet mean volume (Bld) [Entitic vol] 10.1 fL Normal 6.2-12.0 [facility] Comment on above: Performed By: #### L 500.4050, L100.0100 ####[facility] [address] [place], [address] Platelets (Bld) [#/Vol] 179 10*3/uL Normal 150-450 [facility] Comment on above: Performed By: #### L 500.4050, L100.0100 ####[facility] [address] [place], [address] RBC (Bld) [#/Vol] 4.07 10*6/uL Low 4.6-6.[address] [facility] Comment on above: Performed By: #### L 500.4050, L100.0100 ####[facility] [address] [place], [address] RDW SD 51.0 fl High 35.1-43.9 [facility] Comment on above: Performed By: #### L 500.4050, L100.0100 ####[facility] [address] [place], [address] WBC (Bld) [#/Vol] 11.4 10*3/uL High 4.4-11.[address] [facility] Comment on above: Performed By: #### L 500.4050, L100.0100 ####[facility] [address] [place], [address] Comprehensive Metabolic Prof ilon 10-31-2024 Albumin [Mass/Vol] 2.7 g/dL Low 3.4-4.8 [facility] Comment on above: Performed By: #### L 500.4050, L100.0100 ####[facility] [address] [place], [address] Albumin/Globulin [Mass ratio] 1.0 {ratio} Normal 0.9-2.4 [facility] Comment on above: Performed By: #### L 500.4050, L100.0100 ####[facility] [address] [place], [address] ALK PHOS 203 U/L High 40-129 [facility] Comment on above: Performed By: #### L 500.4050, L100.0100 ####[facility] [address] [place], [address] ALT [Catalytic activity/Vol] 174 U/L High <=46 [facility] Comment on above: Performed By: #### L 500.4050, L100.0100 ####[facility] [address] [place], [address] AST [Catalytic activity/Vol] 310 U/L High <=37 [facility] Comment on above: Performed By: #### L 500.4050, L100.0100 ####[facility] [address] [place], [address] Bilirubin [Mass/Vol] 1.31 mg/dL High 0.00-1.30 [facility] Comment on above: Performed By: #### L 500.4050, L100.0100 ####[facility] [address] [place], [address] BUN/CRE 20.2 RATIO High 10-20 [facility] Comment on above: Performed By: #### L 500.4050, L100.0100 ####[facility] [address] [place], [address] Calcium [Mass/Vol] 9.1 mg/dL Normal 7.6-11.0 [facility] Comment on above: Performed By: #### L 500.4050, L100.0100 ####[facility] [address] [place], [address] Chloride [Moles/Vol] 111 mmol/L High 98-108 [facility] Comment on above: Performed By: #### L 500.4050, L100.0100 ####[facility] [address] [place], [address] CO2 [Moles/Vol] 23.3 mmol/L Normal 21.0-32.0 [facility] Comment on above: Performed By: #### L 500.4050, L100.0100 ####[facility] [address] [place], [address] Creatinine [Mass/Vol] 1.30 mg/dL High 0.70-1.20 [facility] Comment on above: Performed By: #### L 500.4050, L100.0100 ####[facility] [address] [place], [address] ECRCL 47.67 ml/min Low 50-250 [facility] Comment on above: Performed By: #### L 500.4050, L100.0100 ####[facility] [address] [place], [address] GAP 8 Normal 5-15 [facility] Comment on above: Performed By: #### L 500.4050, L100.0100 ####[facility] [address] [place], [address] GFR/1.73 sq M.predicted among non-blacks MDRD (S/P/Bld) [Vol rate/Area] 53 mL/min/{1.73_m2} Low >60 [facility] Comment on above: Result Comment: mL/m in/1.73m2 CKD-EPI Creatinine Equation (2020) Performed By: #### L 500.4050, L100.0100 ####[facility] [address] [place], [address] Globulin (S) [Mass/Vol] 2.7 g/dL Normal 2.2-4.2 [facility] Comment on above: Performed By: #### L 500.4050, L100.0100 ####[facility] [address] [place], [address] Glucose [Mass/Vol] 159 mg/dL High 70-99 [facility] Comment on above: Performed By: #### L 500.4050, L100.0100 ####[facility] [address] [place], [address] Potassium [Moles/Vol] 3.6 mmol/L Normal 3.3-5.1 [facility] Comment on above: Performed By: #### L 500.4050, L100.0100 ####[facility] [address] [place], [address] Sodium [Moles/Vol] 142 mmol/L Normal 133-145 [facility] Comment on above: Performed By: #### L 500.4050, L100.0100 ####[facility] [address] [place], [address] T PROT 5.4 g/dL Low 5.9-8.4 [facility] Comment on above: Performed By: #### L 500.4050, L100.0100 ####[facility] [address] [place], [address] Urea nitrogen [Mass/Vol] 26 mg/dL High 4-19 [facility] Comment on above: Performed By: #### L 500.4050, L100.0100 ####[facility] [address] [place], [address] Consultation - Cardiologyon 10-31-2024 Consultation - Cardiology Normal [facility] Consultation - Infectious Dx on 10-31-2024 Consultation - Infectious Dx Normal [facility] Bedside Glucoseon 10-30-2024 FINGERSTICK GLU 109 mg/dL High 74-106 [facility] Comment on above: Result Comment: LILLIAN KUHN OF PATIENT CARE PER NURSING PROTOCOL Performed By: #### L 501.080 ####[facility] [address] [place], [address] FINGERSTICK GLU 94 mg/dL Normal 74-106 [facility] Comment on above: Result Comment: Dr Mack PazMANALPA OF PATIENT CARE PER NURSING PROTOCOL Performed By: #### L 501.080 ####[facility] [address] [place], [address] FINGERSTICK GLU 92 mg/dL Normal 74-106 [facility] Comment on above: Result Comment: Dr Mack PazMANAGEMENT OF PATIENT CARE PER NURSING PROTOCOL Performed By: #### L 501.080 ####[facility] [address] [place], [address] FINGERSTICK GLU 108 mg/dL High 74-106 [facility] Comment on above: Result Comment: LILLIAN GEMENT OF PATIENT CARE PER NURSING PROTOCOL Performed By: #### L 501.080 ####[facility] [address] [place], [address] FINGERSTICK GLU 122 mg/dL High 74-106 [facility] Comment on above: Result Comment: LILLIAN GEMENT OF PATIENT CARE PER NURSING PROTOCOL Performed By: #### L 501.080 ####[facility] [address] [place], [address] CBC W/Diff, Automatedon 09-0 9-2024 Absolute Lymph 0.66 X10 3/uL Low 0.83-4.51 [facility] Comment on above: Performed By: #### L 100.0100, L500.4050 ####[facility] [address] [place], [address] Absolute Neut 10.1 X10 3/uL High 2.0-7.7 [facility] Comment on above: Performed By: #### L 100.0100, L500.4050 ####[facility] [address] [place], [address] Basophils/100 WBC (Bld) 0.4 % Normal 0-1 [facility] Comment on above: Performed By: #### L 100.0100, L500.4050 ####[facility] [address] [place], [address] Eosinophils/100 WBC (Bld) 1.1 % Normal 0-5 [facility] Comment on above: Performed By: #### L 100.0100, L500.4050 ####[facility] [address] [place], [address] Erythrocyte distribution width (RBC) [Ratio] 15.8 % High 11.6-14.6 [facility] Comment on above: Performed By: #### L 100.0100, L500.4050 ####[facility] [address] [place], [address] Hematocrit (Bld) [Volume fraction] 37.4 % Low 40-54 [facility] Comment on above: Performed By: #### L 100.0100, L500.4050 ####[facility] [address] [place], [address] Hemoglobin (Bld) [Mass/Vol] 12.4 g/dL Low 13.0-16.5 [facility] Comment on above: Performed By: #### L 100.0100, L500.4050 ####[facility] [address] [place], [address] IG% 1.100 High 0.0-0.9 [facility] Comment on above: Result Comment: IG% - Immature Granulocytes (promyelocytes, myelocytes andmetamyelocytes) > 1% indicates that a LEFT SHIFT is Present. Performed By: #### L 100.0100, L500.4050 ####[facility] [address] [place], [address] Lymphocytes/100 WBC (Bld) 5.6 % Low 19-41 [facility] Comment on above: Performed By: #### L 100.0100, L500.4050 ####[facility] [address] [place], [address] MCH (RBC) [Entitic mass] 29.6 pg Normal 27.0-32.0 [facility] Comment on above: Performed By: #### L 100.0100, L500.4050 ####[facility] [address] [place], [address] MCHC (RBC) [Mass/Vol] 33.2 g/dL Normal 32-36 [facility] Comment on above: Performed By: #### L 100.0100, L500.4050 ####[facility] [address] [place], [address] MCV (RBC) [Entitic vol] 89.3 fL Normal 80-94 [facility] Comment on above: Performed By: #### L 100.0100, L500.4050 ####[facility] [address] [place], [address] Monocytes/100 WBC (Bld) 6.4 % Normal 0-10 [facility] Comment on above: Performed By: #### L 100.0100, L500.4050 ####[facility] [address] [place], [address] Neutrophils/100 WBC (Bld) 85.4 % High 47-70 [facility] Comment on above: Performed By: #### L 100.0100, L500.4050 ####[facility] [address] [place], [address] Nucleated RBC (Bld) [#/Vol] 0 10*3/uL Normal 0-5 [facility] Comment on above: Performed By: #### L 100.0100, L500.4050 ####[facility] [address] [place], [address] Platelet mean volume (Bld) [Entitic vol] 10.0 fL Normal 6.2-12.0 [facility] Comment on above: Performed By: #### L 100.0100, L500.4050 ####[facility] [address] [place], [address] Platelets (Bld) [#/Vol] 166 10*3/uL Normal 150-450 [facility] Comment on above: Performed By: #### L 100.0100, L500.4050 ####[facility] [address] [place], [address] RBC (Bld) [#/Vol] 4.19 10*6/uL Low 4.6-6.[address] [facility] Comment on above: Performed By: #### L 100.0100, L500.4050 ####[facility] [address] [place], [address] RDW SD 51.3 fl High 35.1-43.9 [facility] Comment on above: Performed By: #### L 100.0100, L500.4050 ####[facility] [address] [place], [address] WBC (Bld) [#/Vol] 11.8 10*3/uL High 4.4-11.[address] [facility] Comment on above: Performed By: #### L 100.0100, L500.4050 ####[facility] [address] [place], [address] Comprehensive Metabolic Prof [facility] 10-30-2024 Albumin [Mass/Vol] 2.9 g/dL Low 3.4-4.8 [facility] Comment on above: Performed By: #### L 100.0100, L500.4050 ####[facility] [address] [place], [address] Albumin/Globulin [Mass ratio] 1.1 {ratio} Normal 0.9-2.4 [facility] Comment on above: Performed By: #### L 100.0100, L500.4050 ####[facility] [address] [place], [address] ALK PHOS 136 U/L High 40-129 [facility] Comment on above: Performed By: #### L 100.0100, L500.4050 ####[facility] [address] [place], [address] ALT [Catalytic activity/Vol] 81 U/L High <=46 [facility] Comment on above: Performed By: #### L 100.0100, L500.4050 ####[facility] [address] [place], [address] AST [Catalytic activity/Vol] 166 U/L High <=37 [facility] Comment on above: Performed By: #### L 100.0100, L500.4050 ####[facility] [address] [place], [address] Bilirubin [Mass/Vol] 1.12 mg/dL Normal 0.00-1.30 [facility] Comment on above: Performed By: #### L 100.0100, L500.4050 ####[facility] [address] [place], [address] BUN/CRE 20.1 RATIO High 10-20 [facility] Comment on above: Performed By: #### L 100.0100, L500.4050 ####[facility] [address] [place], [address] Calcium [Mass/Vol] 9.2 mg/dL Normal 7.6-11.0 [facility] Comment on above: Performed By: #### L 100.0100, L500.4050 ####[facility] [address] [place], [address] Chloride [Moles/Vol] 111 mmol/L High 98-108 [facility] Comment on above: Performed By: #### L 100.0100, L500.4050 ####[facility] [address] [place], [address] CO2 [Moles/Vol] 22.2 mmol/L Normal 21.0-32.0 [facility] Comment on above: Performed By: #### L 100.0100, L500.4050 ####[facility] [address] [place], [address] Creatinine [Mass/Vol] 1.31 mg/dL High 0.70-1.20 [facility] Comment on above: Performed By: #### L 100.0100, L500.4050 ####[facility] [address] [place], [address] ECRCL 47.66 ml/min Low 50-250 [facility] Comment on above: Performed By: #### L 100.0100, L500.4050 ####[facility] [address] [place], [address] GAP 10 Normal 5-15 [facility] Comment on above: Performed By: #### L 100.0100, L500.4050 ####[facility] [address] [place], [address] GFR/1.73 sq M.predicted among non-blacks MDRD (S/P/Bld) [Vol rate/Area] 52 mL/min/{1.73_m2} Low >60 [facility] Comment on above: Result Comment: mL/m in/1.73m2 CKD-EPI Creatinine Equation (2020) Performed By: #### L 100.0100, L500.4050 ####[facility] [address] [place], [address] Globulin (S) [Mass/Vol] 2.6 g/dL Normal 2.2-4.2 [facility] Comment on above: Performed By: #### L 100.0100, L500.4050 ####[facility] [address] [place], [address] Glucose [Mass/Vol] 126 mg/dL High 70-99 [facility] Comment on above: Performed By: #### L 100.0100, L500.4050 ####[facility] [address] [place], [address] Potassium [Moles/Vol] 3.9 mmol/L Normal 3.3-5.1 [facility] Comment on above: Performed By: #### L 100.0100, L500.4050 ####[facility] [address] [place], [address] Sodium [Moles/Vol] 142 mmol/L Normal 133-145 [facility] Comment on above: Performed By: #### L 100.0100, L500.4050 ####[facility] [address] [place], [address] T PROT 5.5 g/dL Low 5.9-8.4 [facility] Comment on above: Performed By: #### L 100.0100, L500.4050 ####[facility] [address] [place], [address] Urea nitrogen [Mass/Vol] 26 mg/dL High 4-19 [facility] Comment on above: Performed By: #### L 100.0100, L500.4050 ####[facility] [address] [place], [address] MR/CON.PCM.MARIELon 10-30-2024 MR/CON.PCM.MARIEL Normal [facility] Modified Barium Swallow Stud yon 10-30-2024 Modified Barium Swallow Study Normal [facility] Activated partial thrombopla stin time (aPTT) in platelet poor plasma by coagulation aOrdered By: Khai Bose on 10-29-2024 aPTT Coag (PPP) [Time] 48.5 s High 24.1-36.2 [facility] Anaerobic cultureOrdered By: Khai Bose on 10-29-2024 Bacteria identified Anaer cx Nom (Unsp spec) Anaerobic cocci Abnormal [facility] Bacteria identified Anaer cx Nom (Unsp spec) Clostridium perfringens Abnormal [facility] Basic Metabolic Profile (BMP )on 10-29-2024 BUN/CRE 20.4 RATIO High 10-20 [facility] Comment on above: Performed By: #### L 100.0100, L501.9985, L500.2500 ####[facility] [address] [place], [address] Calcium [Mass/Vol] 9.0 mg/dL Normal 7.6-11.0 [facility] Comment on above: Performed By: #### L 100.0100, L501.9985, L500.2500 ####[facility] [address] [place], [address] Chloride [Moles/Vol] 110 mmol/L High 98-108 [facility] Comment on above: Performed By: #### L 100.0100, L501.9985, L500.2500 ####[facility] [address] [place], [address] CO2 [Moles/Vol] 20.9 mmol/L Low 21.0-32.0 [facility] Comment on above: Performed By: #### L 100.0100, L501.9985, L500.2500 ####[facility] [address] [place], [address] Creatinine [Mass/Vol] 1.46 mg/dL High 0.70-1.20 [facility] Comment on above: Performed By: #### L 100.0100, L501.9985, L500.2500 ####[facility] [address] [place], [address] ECRCL 42.19 ml/min Low 50-250 [facility] Comment on above: Performed By: #### L 100.0100, L501.9985, L500.2500 ####[facility] [address] [place], [address] GAP 10 Normal 5-15 [facility] Comment on above: Performed By: #### L 100.0100, L501.9985, L500.2500 ####[facility] [address] [place], [address] GFR/1.73 sq M.predicted among non-blacks MDRD (S/P/Bld) [Vol rate/Area] 46 mL/min/{1.73_m2} Low >60 [facility] Comment on above: Result Comment: mL/m in/1.73m2 CKD-EPI Creatinine Equation (2020) Performed By: #### L 100.0100, L501.9985, L500.2500 ####[facility] [address] [place], [address] Glucose [Mass/Vol] 173 mg/dL High 70-99 [facility] Comment on above: Performed By: #### L 100.0100, L501.9985, L500.2500 ####[facility] [address] [place], [address] Potassium [Moles/Vol] 4.2 mmol/L Normal 3.3-5.1 [facility] Comment on above: Performed By: #### L 100.0100, L501.9985, L500.2500 ####[facility] [address] [place], [address] Sodium [Moles/Vol] 140 mmol/L Normal 133-145 [facility] Comment on above: Performed By: #### L 100.0100, L501.9985, L500.2500 ####[facility] [address] [place], [address] Urea nitrogen [Mass/Vol] 30 mg/dL High 4-19 [facility] Comment on above: Performed By: #### L 100.0100, L501.9985, L500.2500 ####[facility] [address] [place], [address] Bedside Glucoseon 10-29-2024 FINGERSTICK GLU 114 mg/dL High 74-106 [facility] Comment on above: Result Comment: LILLIAN GEMENT OF PATIENT CARE PER NURSING PROTOCOL Performed By: #### L 501.080 ####[facility] [address] [place], [address] FINGERSTICK GLU 106 mg/dL Normal 74-106 [facility] Comment on above: Result Comment: LILLIAN GEMENT OF PATIENT CARE PER NURSING PROTOCOL Performed By: #### L 501.080 ####[facility] [address] [place], [address] FINGERSTICK GLU 134 mg/dL High 74-106 [facility] Comment on above: Result Comment: LILLIAN GEMENT OF PATIENT CARE PER NURSING PROTOCOL Performed By: #### L 501.080 ####[facility] [address] [place], [address] Biopsy/Inj or Needle Placeme nton 10-29-2024 Biopsy/Inj or Needle Placement Normal [facility] Body Fluid Cell Count+Diffon 10-29-2024 PATH COMM/BF May follow Normal [facility] Comment on above: Order Comment: Comme nts: GB fluid Result Comment: Unab le to perform due to the type of fluid. [facility] wascalled and they do not perform anymore due to the bile acidbreaking down the cells. Performed By: #### L 200.0200 ####[facility] [address] [place], [address] APPEAR/BF Normal [facility] Comment on above: Order Comment: Comme nts: GB fluid Result Comment: Unab le to perform due to the type of fluid. [facility] wascalled and they do not perform anymore due to the bile acidbreaking down the cells. Performed By: #### L 200.0200 ####[facility] [address] [place], [address] BFM 2ND SPEC Normal [facility] Comment on above: Order Comment: Comme nts: GB fluid Result Comment: Unab le to perform due to the type of fluid. [facility] wascalled and they do not perform anymore due to the bile acidbreaking down the cells. Performed By: #### L 200.0200 ####[facility] [address] [place], [address] BFTC# Normal [facility] Comment on above: Order Comment: Comme nts: GB fluid Result Comment: Unab le to perform due to the type of fluid. [facility] wascalled and they do not perform anymore due to the bile acidbreaking down the cells. Performed By: #### L 200.0200 ####[facility] [address] [place], [address] BODY FLUID QC [facility] Comment on above: Order Comment: Comme nts: GB fluid Result Comment: Unab le to perform due to the type of fluid. [facility] wascalled and they do not perform anymore due to the bile acidbreaking down the cells. Performed By: #### L 200.0200 ####[facility] [address] [place], [address] COLOR/BF [facility] Comment on above: Order Comment: Comme nts: GB fluid Result Comment: Unab le to perform due to the type of fluid. [facility] wascalled and they do not perform anymore due to the bile acidbreaking down the cells. Performed By: #### L 200.0200 ####[facility] [address] [place], [address] qBKG ANALYZ OK? Normal W/IN LIMITS [facility] Comment on above: Order Comment: Comme nts: GB fluid Result Comment: Unab le to perform due to the type of fluid. [facility] wascalled and they do not perform anymore due to the bile acidbreaking down the cells. Performed By: #### L 200.0200 ####[facility] [address] [place], [address] RBC/BF Normal [facility] Comment on above: Order Comment: Comme nts: GB fluid Result Comment: Unab le to perform due to the type of fluid. [facility] wascalled and they do not perform anymore due to the bile acidbreaking down the cells. Performed By: #### L 200.0200 ####[facility] [address] [place], [address] SOURCE/BF Normal [facility] Comment on above: Order Comment: Comme nts: GB fluid Result Comment: Unab le to perform due to the type of fluid. [facility] wascalled and they do not perform anymore due to the bile acidbreaking down the cells. Performed By: #### L 200.0200 ####[facility] [address] [place], [address] WBC/BF Normal [facility] Comment on above: Order Comment: Comme nts: GB fluid Result Comment: Unab le to perform due to the type of fluid. [facility] wascalled and they do not perform anymore due to the bile acidbreaking down the cells. Performed By: #### L 200.0200 ####[facility] [address] [place], [address] CBC W/Diff, Automatedon 09-0 ACANTHOCYTE 1+ Normal [facility] Comment on above: Performed By: #### L 100.0100, L501.9985, L500.2500 ####[facility] [address] [place], [address] Anisocytosis Ql (Bld) 1+ Normal [facility] Comment on above: Performed By: #### L 100.0100, L501.9985, L500.2500 ####[facility] [address] [place], [address] CRENATED RBC 3+ Normal [facility] Comment on above: Performed By: #### L 100.0100, L501.9985, L500.2500 ####[facility] [address] [place], [address] POLYCHROMASIA 1+ Normal [facility] Comment on above: Performed By: #### L 100.0100, L501.9985, L500.2500 ####[facility] [address] [place], [address] DOHLE BODIES 1+ Normal [facility] Comment on above: Performed By: #### L 100.0100, L501.9985, L500.2500 ####[facility] [address] [place], [address] PLT EST ADEQUATE Normal ADEQ [facility] Comment on above: Performed By: #### L 100.0100, L501.9985, L500.2500 ####[facility] [address] [place], [address] TOXIC GRAN 1+ Normal [facility] Comment on above: Performed By: #### L 100.0100, L501.9985, L500.2500 ####[facility] [address] [place], [address] Crenated erythrocyte detecti on by light microscopyOrdered By: Ko Wiggins on 10-29-2024 Beau cells LM Ql (Bld) 3+ [facility] Dohle bodies detectionOrdere d By: Ko Wiggins on 10-29-2024 Dohle body LM Ql (Bld) 1+ [facility] Electrocardiogram reportOrde red By: Cece Bella on 10-29-2024 EKG study [facility] Work Phone: Electrocardiogram reportOrde red By: Sue Anderson on 10-29-2024 EKG study [facility] Work Phone: Gram Stainon 10-29-2024 GS GB fluid, cholecysto stomy tube Gram Stain 2+ Gram variable semaj 1+ Gram positive cocci 2+ White Blood Cells Normal [facility] Comment on above: Performed By: #### M 100.4001, M100.2000, M100.2900 ####[facility] [address] [place], [address] Gram stainOrdered By: Rupali Bose on 10-29-2024 Microscopic observation Gram stain Nom (Unsp spec) [facility] Hemoglobin A1con 10-29-2024 HbA1c (Bld) [Mass fraction] 6.3 % High <=5.6 [facility] Comment on above: Result Comment: Norm al < 5.7 % Prediabetic 5.7 - 6.4 % Diabetic >or= 6.5 % Please note range changes. Performed By: #### L 100.0100, L501.9985, L500.2500 ####[facility] [address] [place], [address] Hemoglobin A1c percentageOrd ered By: Ko Wiggins on 10-29-2024 HbA1c (Bld) [Mass fraction] 6.3 % High <5.7 [facility] No Panel InformationOrdered By: Ko Wiggins on 10-29-2024 1+ [facility] Partial Thromboplast Timeon 10-29-2024 aPTT Coag (Bld) [Time] 48.5 s High 24.1-36.2 [facility] Comment on above: Performed By: #### L 300.3900, L300.4310 ####[facility] [address] [place], [address] Prothrombin Time w/INRon INR Coag (PPP) [Relative time] 1.9 {INR} Normal [facility] Comment on above: Performed By: #### L 300.3900, L300.4310 ####[facility] [address] [place], [address] PT Coag (PPP) [Time] 21.7 s High 11.7-14.9 [facility] Comment on above: Performed By: #### L 300.3900, L300.4310 ####[facility] [address] [place], [address] INR Normal [facility] Comment on above: Result Comment: DUPL ICATE ORDER Performed By: #### L 300.3900 ####[facility] [address] [place], [address] PROTIME Normal 11.7-14.9 [facility] Comment on above: Result Comment: DUPL ICATE ORDER Performed By: #### L 300.3900 ####[facility] [address] [place], [address] Prothrombin timeOrdered By: Khai Bose on 10-29-2024 PT Coag (PPP) [Time] 21.7 s High 11.7-14.9 [facility] Toxic leukocyte granulation detectionOrdered By: Ko Wiggnis on 10-29-2024 Toxic granules LM Ql (Bld) 1+ [facility] 12 Lead EKGon 10-28-2024 12 Lead EKG Normal [facility] Abd Inc Decub and/or Erecton 10-28-2024 Abd Inc Decub and/or Erect Normal [facility] Bedside Glucoseon 10-28-2024 FINGERSTICK GLU 148 mg/dL High 74-106 [facility] Comment on above: Result Comment: LILLIAN GEMENT OF PATIENT CARE PER NURSING PROTOCOL Performed By: #### L 501.080 ####[facility] [address] [place], [address] FINGERSTICK GLU 124 mg/dL High 74-106 [facility] Comment on above: Result Comment: LILLIAN GEMENT OF PATIENT CARE PER NURSING PROTOCOL Performed By: #### L 501.080 ####[facility] [address] [place], [address] FINGERSTICK GLU 127 mg/dL High 74-106 [facility] Comment on above: Result Comment: LILLIAN GEMENT OF PATIENT CARE PER NURSING PROTOCOL Performed By: #### L 501.080 ####[facility] [address] [place], [address] FINGERSTICK GLU 188 mg/dL High 74-106 [facility] Comment on above: Result Comment: LILLIAN KUHN OF PATIENT CARE PER NURSING PROTOCOL Performed By: #### L 501.080 ####[facility] [address] [place], [address] [facility] Positive Normal [facility] Comment on above: Performed By: #### L 9000.0800 ####[facility] [address] [place], [address] Base excess Calc (Bld) [Moles/Vol] 4 mmol/L High -2 to +2 [facility] Comment on above: Performed By: #### L 9000.0800 ####[facility] [address] [place], [address] Blood Gas Type ART Normal [facility] Comment on above: Performed By: #### L 9000.0800 ####[facility] [address] [place], [address] CO2 [Moles/Vol] 30 mmol/L Normal [facility] Comment on above: Performed By: #### L 9000.0800 ####[facility] [address] [place], [address] FI02 2.0 Normal [facility] Comment on above: Performed By: #### L 9000.0800 ####[facility] [address] [place], [address] HCO3 (Bld) [Moles/Vol] 28.7 mmol/L High 22-26 [facility] Comment on above: Performed By: #### L 9000.0800 ####[facility] [address] [place], [address] Mode Not entered Normal [facility] Comment on above: Performed By: #### L 9000.0800 ####[facility] [address] [place], [address] O2 Delivery Dev CPAP Normal [facility] Comment on above: Performed By: #### L 9000.0800 ####[facility] [address] [place], [address] pCO2 43.3 mmHg Normal 35-45 [facility] Comment on above: Performed By: #### L 9000.0800 ####[facility] [address] [place], [address] pH (Bld) 7.43 [pH] Normal 7.35-7.45 [facility] Comment on above: Performed By: #### L 9000.0800 ####[facility] [address] [place], [address] PO2 70 mmHG Low 75-100 [facility] Comment on above: Performed By: #### L 9000.0800 ####[facility] [address] [place], [address] SITE L Radial Normal [facility] Comment on above: Performed By: #### L 9000.0800 ####[facility] [address] [place], [address] SO2 94 Low 95-99 [facility] Comment on above: Performed By: #### L 9000.0800 ####[facility] [address] [place], [address] CBC W/Diff, Automatedon -0 SMEAR COMMENT SCANNED Normal [facility] Comment on above: Performed By: #### L 100.0100 ####[facility] [address] [place], [address] CXR for Line Placementon CXR for Line Placement Normal [facility] CXR for Line Placement Normal [facility] Comprehensive Metabolic Prof ilon 10-28-2024 Albumin [Mass/Vol] 3.5 g/dL Normal 3.4-4.8 [facility] Comment on above: Performed By: #### L 501.5200, L501.9520, L500.4050, L506.0400 ####[facility] [address] [place], [address] Albumin/Globulin [Mass ratio] 1.5 {ratio} Normal 0.9-2.4 [facility] Comment on above: Performed By: #### L 501.5200, L501.9520, L500.4050, L506.0400 ####[facility] [address] [place], [address] ALK PHOS 64 U/L Normal 40-129 [facility] Comment on above: Performed By: #### L 501.5200, L501.9520, L500.4050, L506.0400 ####[facility] [address] [place], [address] ALT [Catalytic activity/Vol] 8 U/L Normal <=46 [facility] Comment on above: Performed By: #### L 501.5200, L501.9520, L500.4050, L506.0400 ####[facility] [address] [place], [address] AST [Catalytic activity/Vol] 20 U/L Normal <=37 [facility] Comment on above: Performed By: #### L 501.5200, L501.9520, L500.4050, L506.0400 ####[facility] [address] [place], [address] Bilirubin [Mass/Vol] 1.39 mg/dL High 0.00-1.30 [facility] Comment on above: Performed By: #### L 501.5200, L501.9520, L500.4050, L506.0400 ####[facility] [address] [place], [address] BUN/CRE 17.6 RATIO Normal 10-20 [facility] Comment on above: Performed By: #### L 501.5200, L501.9520, L500.4050, L506.0400 ####[facility] [address] [place], [address] Calcium [Mass/Vol] 8.5 mg/dL Normal 7.6-11.0 [facility] Comment on above: Performed By: #### L 501.5200, L501.9520, L500.4050, L506.0400 ####[facility] [address] [place], [address] Chloride [Moles/Vol] 108 mmol/L Normal 98-108 [facility] Comment on above: Performed By: #### L 501.5200, L501.9520, L500.4050, L506.0400 ####[facility] [address] [place], [address] CO2 [Moles/Vol] 18.1 mmol/L Low 21.0-32.0 [facility] Comment on above: Performed By: #### L 501.5200, L501.9520, L500.4050, L506.0400 ####[facility] [address] [place], [address] Creatinine [Mass/Vol] 1.63 mg/dL High 0.70-1.20 [facility] Comment on above: Performed By: #### L 501.5200, L501.9520, L500.4050, L506.0400 ####[facility] [address] [place], [address] ECRCL 34.38 ml/min Low 50-250 [facility] Comment on above: Performed By: #### L 501.5200, L501.9520, L500.4050, L506.0400 ####[facility] [address] [place], [address] GAP 13 Normal 5-15 [facility] Comment on above: Performed By: #### L 501.5200, L501.9520, L500.4050, L506.0400 ####[facility] [address] [place], [address] GFR/1.73 sq M.predicted among non-blacks MDRD (S/P/Bld) [Vol rate/Area] 40 mL/min/{1.73_m2} Low >60 [facility] Comment on above: Result Comment: mL/m in/1.73m2 CKD-EPI Creatinine Equation (2020) Performed By: #### L 501.5200, L501.9520, L500.4050, L506.0400 ####[facility] [address] [place], [address] Globulin (S) [Mass/Vol] 2.3 g/dL Normal 2.2-4.2 [facility] Comment on above: Performed By: #### L 501.5200, L501.9520, L500.4050, L506.0400 ####[facility] [address] [place], [address] Glucose [Mass/Vol] 205 mg/dL High 70-99 [facility] Comment on above: Performed By: #### L 501.5200, L501.9520, L500.4050, L506.0400 ####[facility] [address] [place], [address] Potassium [Moles/Vol] 4.1 mmol/L Normal 3.3-5.1 [facility] Comment on above: Performed By: #### L 501.5200, L501.9520, L500.4050, L506.0400 ####[facility] [address] [place], [address] Sodium [Moles/Vol] 139 mmol/L Normal 133-145 [facility] Comment on above: Performed By: #### L 501.5200, L501.9520, L500.4050, L506.0400 ####[facility] [address] [place], [address] T PROT 5.8 g/dL Low 5.9-8.4 [facility] Comment on above: Performed By: #### L 501.5200, L501.9520, L500.4050, L506.0400 ####[facility] [address] [place], [address] Urea nitrogen [Mass/Vol] 29 mg/dL High 4-19 [facility] Comment on above: Performed By: #### L 501.5200, L501.9520, L500.4050, L506.0400 ####[facility] [address] [place], [address] Magnesiumon 10-28-2024 Magnesium [Mass/Vol] 1.6 mg/dL Normal 1.5-2.2 [facility] Comment on above: Performed By: #### L 501.5200, L501.9520, L500.4050, L506.0400 ####[facility] [address] [place], [address] T4 Free Directon 10-28-2024 T4 FREE DIRECT 0.90 ng/dL Normal 0.76-1.46 [facility] Comment on above: Performed By: #### L 501.5200, L501.9520, L500.4050, L506.0400 ####[facility] [address] [place], [address] T4 freeOrdered By: Khai sears on 10-28-2024 Free T4 [Mass/Vol] 0.90 ng/dL 0.76-1.46 [facility] TSH DL <= 0.005 mIU/L QnOrde red By: Khai Bose on 10-28-2024 TSH Qn 1.440 uIU/mL 0.300-4.200 [facility] Thyroid Stim Hormone (TSH)on 10-28-2024 TSH 1.440 uIU/mL Normal 0.300-4.200 [facility] Comment on above: Performed By: #### L 501.5200, L501.9520, L500.4050, L506.0400 ####[facility] [address] [place], [address] Trough vancomycin levelOrder ed By: Fernanda Triplett on 10-28-2024 Vancomycin trough [Mass/Vol] 12.2 ug/mL 5.0-15.0 [facility] Vancomycin, Trough Levelon 0 10-28-2024 VANCO, TROUGH 12.2 ug/mL Normal 5.0-15.0 [facility] Comment on above: Order Comment: Comme nts: Trough to be drawn 30 mins prior to scheduled [id number] Result Comment: Alirio mmended goal trough ranges are generally 10-15 mcg/mlfor less severe/complicated infections such as cellulitisor UTI and 15-20 mcg/ml for more severe/complicatedinfections such as bacteremia/sepsis, osteomyelitis,pneumonia or meningitis. Goal trough ranges should takeinto account indication, patient-specific factors andorganism ALEX.VANCOMYCIN STANDARED DRUG THERAPY TROUGH LEVEL: 5.0 - 15.0 mg/LVANCOMYCIN HIGH INTENSITY THERAPY TROUGH LEVEL: 15.0 - 20.0 mg/LHigh Intensity therapy recommended for serious lifethreatening infections include:- Jlgoixzpth-Poeiaahtlzyi-Wjbnejjeo (Ventilator/Healtcare Associated)-SepsisPLEASE CONTACT PHARMACY SERVICES (#9219) FOR INTERPRETATIONOF RESULTS. Performed By: #### L 501.8820 ####[facility] [address] [place], [place], [id number] Bedside Glucoseon 10-27-2024 FINGERSTICK GLU 111 mg/dL High 74-106 [facility] Comment on above: Result Comment: LILLIAN GEMENT OF PATIENT CARE PER NURSING PROTOCOL Performed By: #### L 501.080 ####[facility] [address] [place], [address] FINGERSTICK GLU 111 mg/dL High 74-106 [facility] Comment on above: Result Comment: LILLIAN GEMENT OF PATIENT CARE PER NURSING PROTOCOL Performed By: #### L 501.080 ####[facility] [address] [place], [address] FINGERSTICK GLU 94 mg/dL Normal 74-106 [facility] Comment on above: Result Comment: LILLIAN GEMENT OF PATIENT CARE PER NURSING PROTOCOL Performed By: #### L 501.080 ####[facility] [address] [place], [address] FINGERSTICK GLU 95 mg/dL Normal 74-106 [facility] Comment on above: Result Comment: LILLIAN GEMENT OF PATIENT CARE PER NURSING PROTOCOL Performed By: #### L 501.080 ####[facility] [address] [place], [address] CBC W/Diff, Automatedon 09- SMEAR COMMENT SCANNED Normal [facility] Comment on above: Performed By: #### L 100.0100, L500.4050 ####[facility] [address] [place], [address] Comprehensive Metabolic Prof ilon 10-27-2024 Albumin [Mass/Vol] 3.3 g/dL Low 3.4-4.8 [facility] Comment on above: Performed By: #### L 100.0100, L500.4050 ####[facility] [address] [place], [address] Albumin/Globulin [Mass ratio] 1.2 {ratio} Normal 0.9-2.4 [facility] Comment on above: Performed By: #### L 100.0100, L500.4050 ####[facility] [address] [place], [address] ALK PHOS 77 U/L Normal 40-129 [facility] Comment on above: Performed By: #### L 100.0100, L500.4050 ####[facility] [address] [place], [address] ALT [Catalytic activity/Vol] 14 U/L Normal <=46 [facility] Comment on above: Performed By: #### L 100.0100, L500.4050 ####[facility] [address] [place], [address] AST [Catalytic activity/Vol] 27 U/L Normal <=37 [facility] Comment on above: Result Comment: Hemo lysis present, Results??could be affected.?? Performed By: #### L 100.0100, L500.4050 ####[facility] [address] [place], [address] Bilirubin [Mass/Vol] 1.36 mg/dL High 0.00-1.30 [facility] Comment on above: Performed By: #### L 100.0100, L500.4050 ####[facility] [address] [place], [address] BUN/CRE 16.8 RATIO Normal 10-20 [facility] Comment on above: Performed By: #### L 100.0100, L500.4050 ####[facility] [address] [place], [address] Calcium [Mass/Vol] 8.7 mg/dL Normal 7.6-11.0 [facility] Comment on above: Performed By: #### L 100.0100, L500.4050 ####[facility] [address] [place], [address] Chloride [Moles/Vol] 110 mmol/L High 98-108 [facility] Comment on above: Performed By: #### L 100.0100, L500.4050 ####[facility] [address] [place], [address] CO2 [Moles/Vol] 18.4 mmol/L Low 21.0-32.0 [facility] Comment on above: Performed By: #### L 100.0100, L500.4050 ####[facility] [address] [place], [address] Creatinine [Mass/Vol] 1.32 mg/dL High 0.70-1.20 [facility] Comment on above: Performed By: #### L 100.0100, L500.4050 ####[facility] [address] [place], [address] ECRCL 42.46 ml/min Low 50-250 [facility] Comment on above: Performed By: #### L 100.0100, L500.4050 ####[facility] [address] [place], [address] GAP 12 Normal 5-15 [facility] Comment on above: Performed By: #### L 100.0100, L500.4050 ####[facility] [address] [place], [address] GFR/1.73 sq M.predicted among non-blacks MDRD (S/P/Bld) [Vol rate/Area] 52 mL/min/{1.73_m2} Low >60 [facility] Comment on above: Result Comment: mL/m in/1.73m2 CKD-EPI Creatinine Equation (2020) Performed By: #### L 100.0100, L500.4050 ####[facility] [address] [place], [address] Globulin (S) [Mass/Vol] 2.7 g/dL Normal 2.2-4.2 [facility] Comment on above: Performed By: #### L 100.0100, L500.4050 ####[facility] [address] [place], [address] Glucose [Mass/Vol] 96 mg/dL Normal 70-99 [facility] Comment on above: Performed By: #### L 100.0100, L500.4050 ####[facility] [address] [place], [address] Potassium [Moles/Vol] 4.2 mmol/L Normal 3.3-5.1 [facility] Comment on above: Result Comment: Hemo lysis present, Results??could be affected.?? Performed By: #### L 100.0100, L500.4050 ####[facility] [address] [place], [address] Sodium [Moles/Vol] 140 mmol/L Normal 133-145 [facility] Comment on above: Performed By: #### L 100.0100, L500.4050 ####[facility] [address] [place], [address] T PROT 6.0 g/dL Normal 5.9-8.4 [facility] Comment on above: Performed By: #### L 100.0100, L500.4050 ####[facility] [address] [place], [address] Urea nitrogen [Mass/Vol] 22 mg/dL High 4-19 [facility] Comment on above: Performed By: #### L 100.0100, L500.4050 ####[facility] [address] [place], [address] Consultation - Intensiviston 10-27-2024 Consultation - Line Assembler Normal [facility] Consultation - Surgicalon Consultation - Surgical Normal [facility] Echo Complete W/ Contraston 10-27-2024 Echo Complete W/ Contrast Normal [facility] Echocardiogram study reportO rdered By: Sue Anderson on 10-27-2024 Study report [facility] Work Phone: Lactic Acidon 10-27-2024 Lactate [Moles/Vol] 2.4 mmol/L Invalid Interpretation Code 0.0-2.0 [facility] Comment on above: Result Comment: Crit ical Result(s) Called at: 0346 by:??BRADLEY GUERIN. Results read back by same. Performed By: #### L 503.6005 ####[facility] [address] [place], [address] Legionella Antigen Urineon 0 10-27-2024 LEGU Normal [facility] Comment on above: Performed By: #### M 300.4500, M300.4600 ####[facility] [address] [place], [address] M100.019on 10-27-2024 M100.019 Negative Normal [facility] Comment on above: Performed By: #### M 100.019 ####[facility] [address] [place], [address] M8200.1000on 10-27-2024 M8200.1000 Normal Reference Ran ge = Negative MRSA DNA Nose Ql ELOY+probe GeneXpert Instrument, PCR method MRSA PCR MRSA NEGATIVE Normal [facility] Comment on above: Performed By: #### M 8200.1000 ####[facility] [address] [place], [address] Magnesiumon 10-27-2024 Magnesium [Mass/Vol] 1.4 mg/dL Low 1.5-2.2 [facility] Comment on above: Order Comment: Comme nts: May add to ED labsComments: may add to ED labs Performed By: #### L 501.5200, L501.2300 ####[facility] [address] [place], [address] Nasal methicillin resistant Staphylococcus aureus (MRSA) DNA detection by PCROrdered By: Fernanda Triplett on 10-27-2024 MRSA DNA ELOY+probe Ql (Nose) [facility] Phosphoruson 10-27-2024 Phosphate [Mass/Vol] 3.2 mg/dL Normal 2.7-4.5 [facility] Comment on above: Order Comment: Comme nts: May add to ED labsComments: may add to ED labs Performed By: #### L 501.5200, L501.2300 ####[facility] [address] [place], [place], [address] RESPIRATORY PANEL MOLECULARo n 10-27-2024 RP PANEL Normal [facility] Comment on above: Performed By: #### M 100.638 ####[facility] [address] [place], [place], [id number] Respiratory pathogens detect ion panel by molecular detection methodOrdered By: Fernanda Triplett on 10-27-2024 Respiratory pathogens DNA and RNA panel ELOY+probe (Resp) [facility] Qnqm-sxj-3Pqjkioy By: Rupali Bose on 10-27-2024 SARS-CoV-2 (COVID-19) RNA ELOY+probe Ql (Unsp spec) [facility] Strep pneumoniae Antig(UR,CS F)on 10-27-2024 STPAG Normal [facility] Comment on above: Performed By: #### M 300.4500, M300.4600 ####[facility] [address] [place], [place], [address] Urine Legionella pneumophila antigen detectionOrdered By: Fernanda Triplett on 10-27-2024 L. pneumophila Ag Ql (U) [facility] 12 Lead EKGon 10-26-2024 12 Lead EKG Normal [facility] Absolute lymphocyte countOrd ered By: Akira Blanco on 10-26-2024 Lymphocytes Auto (Unsp spec) [#/Vol] 1.66 10*3/uL 0.83-4.51 [facility] Absolute neutrophil countOrd ered By: Akira Blanco on 10-26-2024 Neutrophils (Bld) [#/Vol] 12.8 10*3/uL High 2.0-7.7 [facility] Anion gap in Serum or Plasma Ordered By: Akira Blanco on 10-26-2024 Anion gap [Moles/Vol] 15 mmol/L 5- [facility] Automated lymphocyte count a s percentage of total leukocytesOrdered By: Akira Blanco on 10-26-2024 Lymphocytes/100 WBC Auto (Unsp spec) 10.5 % Low 19-41 [facility] BUN/creatinine ratioOrdered By: Akira Blanco on 10-26-2024 Urea nitrogen/Creatinine [Mass ratio] 15.6 mg/mg 10-20 [facility] Basophil percentageOrdered B y: Akira Blanco on 10-26-2024 Basophils/100 WBC (Bld) 0.7 % 0-1 [facility] Bilirubin, totalOrdered By: Akira Blanco on 10-26-2024 Bilirubin [Mass/Vol] 1.11 mg/dL 0.00-1.30 [facility] Blood cultureOrdered By: Nora Blanco on 10-26-2024 Bacteria identified Cx Nom (Bld) No growth in 5 days. [facility] CBC W/Diff, Automatedon Absolute Lymph 1.66 X10 3/uL Normal 0.83-4.51 [facility] Comment on above: Performed By: #### L 501.2450, L500.4050, L100.0100 ####[facility] [address] [place], [address] Absolute Neut 12.8 X10 3/uL High 2.0-7.7 [facility] Comment on above: Performed By: #### L 501.2450, L500.4050, L100.0100 ####[facility] [address] [place], [address] Basophils/100 WBC (Bld) 0.7 % Normal 0-1 [facility] Comment on above: Performed By: #### L 501.2450, L500.4050, L100.0100 ####[facility] [address] [place], [address] Eosinophils/100 WBC (Bld) 0.4 % Normal 0-5 [facility] Comment on above: Performed By: #### L 501.2450, L500.4050, L100.0100 ####[facility] [address] [place], [address] Erythrocyte distribution width (RBC) [Ratio] 15.2 % High 11.6-14.6 [facility] Comment on above: Performed By: #### L 501.2450, L500.4050, L100.0100 ####[facility] [address] [place], [address] Hematocrit (Bld) [Volume fraction] 45.8 % Normal 40-54 [facility] Comment on above: Performed By: #### L 501.2450, L500.4050, L100.0100 ####[facility] [address] [place], [address] Hemoglobin (Bld) [Mass/Vol] 15.2 g/dL Normal 13.0-16.5 [facility] Comment on above: Performed By: #### L 501.2450, L500.4050, L100.0100 ####[facility] [address] [place], [address] IG% 1.400 High 0.0-0.9 [facility] Comment on above: Result Comment: IG% - Immature Granulocytes (promyelocytes, myelocytes andmetamyelocytes) > 1% indicates that a LEFT SHIFT is Present. Performed By: #### L 501.2450, L500.4050, L100.0100 ####[facility] [address] [place], [address] Lymphocytes/100 WBC (Bld) 10.5 % Low 19-41 [facility] Comment on above: Performed By: #### L 501.2450, L500.4050, L100.0100 ####[facility] [address] [place], [address] MCH (RBC) [Entitic mass] 29.5 pg Normal 27.0-32.0 [facility] Comment on above: Performed By: #### L 501.2450, L500.4050, L100.0100 ####[facility] [address] [place], [address] MCHC (RBC) [Mass/Vol] 33.2 g/dL Normal 32-36 [facility] Comment on above: Performed By: #### L 501.2450, L500.4050, L100.0100 ####[facility] [address] [place], [address] MCV (RBC) [Entitic vol] 88.8 fL Normal 80-94 [facility] Comment on above: Performed By: #### L 501.2450, L500.4050, L100.0100 ####[facility] [address] [place], [address] Monocytes/100 WBC (Bld) 6.0 % Normal 0-10 [facility] Comment on above: Performed By: #### L 501.2450, L500.4050, L100.0100 ####[facility] [address] [place], [address] Neutrophils/100 WBC (Bld) 81.0 % High 47-70 [facility] Comment on above: Performed By: #### L 501.2450, L500.4050, L100.0100 ####[facility] [address] [place], [address] Nucleated RBC (Bld) [#/Vol] 0 10*3/uL Normal 0-5 [facility] Comment on above: Performed By: #### L 501.2450, L500.4050, L100.0100 ####[facility] [address] [place], [address] Platelet mean volume (Bld) [Entitic vol] 10.5 fL Normal 6.2-12.0 [facility] Comment on above: Performed By: #### L 501.2450, L500.4050, L100.0100 ####[facility] [address] [place], [address] Platelets (Bld) [#/Vol] 285 10*3/uL Normal 150-450 [facility] Comment on above: Performed By: #### L 501.2450, L500.4050, L100.0100 ####[facility] [address] [place], [address] RBC (Bld) [#/Vol] 5.16 10*6/uL Normal 4.6-6.[address] [facility] Comment on above: Performed By: #### L 501.2450, L500.4050, L100.0100 ####[facility] [address] [place], [address] RDW SD 49.2 fl High 35.1-43.9 [facility] Comment on above: Performed By: #### L 501.2450, L500.4050, L100.0100 ####[facility] [address] [place], [address] WBC (Bld) [#/Vol] 15.8 10*3/uL High 4.4-11.[address] [facility] Comment on above: Performed By: #### L 501.2450, L500.4050, L100.0100 ####[facility] [address] [place], [address] Carbon dioxide, total [Moles /volume] in Central venous bloodOrdered By: Akira Blanco on 10-26-2024 CO2 [Moles/Vol] 23.2 mmol/L 21.0-32.0 [facility] Chest without Contraston Chest without Contrast Normal [facility] Chloride assayOrdered By: Marshall Blanco on 10-26-2024 Chloride [Moles/Vol] 102 mmol/L 98-108 [facility] Comprehensive Metabolic Prof ilon 10-26-2024 Albumin [Mass/Vol] 4.5 g/dL Normal 3.4-4.8 [facility] Comment on above: Performed By: #### L 501.2450, L500.4050, L100.0100 ####[facility] [address] [place], [address] Albumin/Globulin [Mass ratio] 1.3 {ratio} Normal 0.9-2.4 [facility] Comment on above: Performed By: #### L 501.2450, L500.4050, L100.0100 ####[facility] [address] [place], [address] ALK PHOS 120 U/L Normal 40-129 [facility] Comment on above: Performed By: #### L 501.2450, L500.4050, L100.0100 ####[facility] [address] [place], [address] ALT [Catalytic activity/Vol] 18 U/L Normal <=46 [facility] Comment on above: Performed By: #### L 501.2450, L500.4050, L100.0100 ####[facility] [address] [place], [address] AST [Catalytic activity/Vol] 34 U/L Normal <=37 [facility] Comment on above: Result Comment: Hemo lysis present, Results??could be affected.?? Performed By: #### L 501.2450, L500.4050, L100.0100 ####[facility] [address] [place], [address] Bilirubin [Mass/Vol] 1.11 mg/dL Normal 0.00-1.30 [facility] Comment on above: Performed By: #### L 501.2450, L500.4050, L100.0100 ####[facility] [address] [place], [address] BUN/CRE 15.6 RATIO Normal 10-20 [facility] Comment on above: Performed By: #### L 501.2450, L500.4050, L100.0100 ####[facility] [address] [place], [address] Calcium [Mass/Vol] 10.7 mg/dL Normal 7.6-11.0 [facility] Comment on above: Performed By: #### L 501.2450, L500.4050, L100.0100 ####[facility] [address] [place], [address] Chloride [Moles/Vol] 102 mmol/L Normal 98-108 [facility] Comment on above: Performed By: #### L 501.2450, L500.4050, L100.0100 ####[facility] [address] [place], [address] CO2 [Moles/Vol] 23.2 mmol/L Normal 21.0-32.0 [facility] Comment on above: Performed By: #### L 501.2450, L500.4050, L100.0100 ####[facility] [address] [place], [address] Creatinine [Mass/Vol] 1.27 mg/dL High 0.70-1.20 [facility] Comment on above: Performed By: #### L 501.2450, L500.4050, L100.0100 ####[facility] [address] [place], [address] ECRCL 44.13 ml/min Low 50-250 [facility] Comment on above: Performed By: #### L 501.2450, L500.4050, L100.0100 ####[facility] [address] [place], [address] GAP 15 Normal 5-15 [facility] Comment on above: Performed By: #### L 501.2450, L500.4050, L100.0100 ####[facility] [address] [place], [address] GFR/1.73 sq M.predicted among non-blacks MDRD (S/P/Bld) [Vol rate/Area] 54 mL/min/{1.73_m2} Low >60 [facility] Comment on above: Result Comment: mL/m in/1.73m2 CKD-EPI Creatinine Equation (2020) Performed By: #### L 501.2450, L500.4050, L100.0100 ####[facility] [address] [place], [address] Globulin (S) [Mass/Vol] 3.6 g/dL Normal 2.2-4.2 [facility] Comment on above: Performed By: #### L 501.2450, L500.4050, L100.0100 ####[facility] [address] [place], [address] Glucose [Mass/Vol] 144 mg/dL High 70-99 [facility] Comment on above: Performed By: #### L 501.2450, L500.4050, L100.0100 ####[facility] [address] [place], [address] Potassium [Moles/Vol] 4.1 mmol/L Normal 3.3-5.1 [facility] Comment on above: Result Comment: Hemo lysis present, Results??could be affected.?? Performed By: #### L 501.2450, L500.4050, L100.0100 ####[facility] [address] [place], [address] Sodium [Moles/Vol] 140 mmol/L Normal 133-145 [facility] Comment on above: Performed By: #### L 501.2450, L500.4050, L100.0100 ####[facility] [address] [place], [address] T PROT 8.1 g/dL Normal 5.9-8.4 [facility] Comment on above: Performed By: #### L 501.2450, L500.4050, L100.0100 ####[facility] [address] [place], [address] Urea nitrogen [Mass/Vol] 20 mg/dL High 4-19 [facility] Comment on above: Performed By: #### L 501.2450, L500.4050, L100.0100 ####[facility] [address] [place], [address] Emergency Department Summary on 10-26-2024 Emergency Department Summary Normal [facility] Eosinophil percentageOrdered By: Akira Blanco on 10-26-2024 Eosinophils/100 WBC (Bld) 0.4 % 0-5 [facility] Erythrocyte distribution wid th ratioOrdered By: Akira Blanco on 10-26-2024 Erythrocyte distribution width (RBC) [Ratio] 15.2 % High 11.6-14.6 [facility] Erythrocyte distribution wid th standard deviationOrdered By: Akira Blanco on 10-26-2024 Erythrocyte distribution width (RBC) [Ratio] 49.2 fl High 35.1-43.9 [facility] Gallbladderon 10-26-2024 Gallbladder Normal [facility] Glomerular filtration rate ( GFR) estimation/1.73 sq m using serum, plasma, or whole bOrdered By: Akira Blanco on 10-26-2024 GFR/1.73 sq M.predicted among non-blacks MDRD (S/P/Bld) [Vol rate/Area] 54 mL/min/{1.73_m2} Low >60 [facility] Comment on above: mL/min/1.73m2 CKD-EP I Creatinine Equation (2020) H AND P Exam - Hospitaliston 10-26-2024 H&P Exam - Hospitalist Normal [facility] Hematocrit Auto (Bld) [Volum e fraction]Ordered By: Akira Blanco on 10-26-2024 Hematocrit (Bld) [Volume fraction] 45.8 % 40-54 [facility] Hemoglobin measurementOrdere d By: Akira Blanco on 10-26-2024 Hemoglobin (Bld) [Mass/Vol] 15.2 g/dL 13.0-16.5 [facility] Immature granulocytes/100 WB C Auto (Bld)Ordered By: Akira Blanco on 10-26-2024 Immature granulocytes/100 WBC (Bld) 1.400 % High 0.0-0.9 [facility] Comment on above: IG% - Immature Granu locytes (promyelocytes, myelocytes and metamyelocytes) > 1% indicates that a LEFT SHIFT is Present. Laboratory - Chemistry and C hemistry - challengeOrdered By: Akira Blanco on 10-26-2024 AST [Catalytic activity/Vol] 34 U/L <38 [facility] Comment on above: Hemolysis present, R esults could be affected. Lactic Acidon 10-26-2024 Lactate [Moles/Vol] 3.2 mmol/L Invalid Interpretation Code 0.0-2.0 [facility] Comment on above: Order Comment: Y Result Comment: Crit ical Result(s) Called at: 2320 by:??BRADLEY JUDD. Results read back by same.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 documentation of the visit was discussed with the patient/authorized sales support representative; all questions welcomed and answered. Patient/authorized sales support representative agreed to proceed HPI: Taz is an 89-year-old male with a history [...] GERD (gastroesophageal reflux disease) Melanoma (HCC) 1991 [place] [facility] Nurse Persistent atrial fibrillation (HCC) 10/11/2019 Admitted 09/05/2019 [facility]. Followed by [facility]. Current Outpatient Medications on File [...] to 100 mg daily; prescription sent to [facility] in [place] with a 30-day supply and refills. - Continue metoprolol 50 mg BID. - Continue home blood pressure monitoring once daily, 1-2 hours post-breakfast. - Hydralazine available for use if needed; record any administration. - Follow-up in 2 weeks with Ruma to reassess blood pressure control. 2. Permanent [...] flag symptoms reviewed as needed. Follow up: Elisa Garcia, ADVERTISING COPYWRITER.ESTIVEN Allergies As of Date: 06/28/2024 Noted Allergy Reaction CYPRESS 09/22/2010 14 - Other: See Comments Co (more content not included)... Normal [facility] CNOVon 06-14-2024 CNOV Office Visit (PULMWS ) -- TAZ JOHNSON ([id number]) 1935 M Date Time Provider Department 06/14/24 1:30 PM OMAR TREADWELL During your visit today, we recorded the following information about you: Weight 91.2 kg Omar Treadwell APRN.CNP 06/14/2024 4:29 PM Signed [facility] INCIDENTAL LUNG NODULE PROGRAM Impression / Recommendations 1. Lung nodule (Primary) Nature and etiology of lung nodules discussed with patient. He was referred for new RUL 14 x 12 mm nodule from 12/05/2023 CT Chest done for cough and SOB. He wintered in [place] and went to the ER for pneumonia [...] Former: Continue to abstain from smoking cigarettes. -- Requesting Provider: Elisa Garcia Reason for the Consult Taz Johnson presents today for consultation / opinion regarding lung nodule(s). My impression and final recommendations will be communicated back to the requesting physician by way of shared medical record or letter via US mail. History of Present Illness Taz Johnson is a 89 year old male with a pertinent past medical history significant for History of tobacco abuse: (7 pack-years, >40 years since quit) Actual quit date 1974 50 years ago, who is being seen as a new consultation for evaluation of a lung nodule(s). Taz Johnson had a CT Chest on 12/05/2023 for [...] No) Subsequent imaging 04/13/2024 [facility] Chest in [place] showed resolution of the nodule of concern [...] 92.1 kg (203 lb) Modified Medical Research [place] Dyspnea Scale (MMRC) I get short of [...] RIGHT V (more content not included)... Normal [facility] CNOVon 06-13-2024 CNOV Office Visit (FAMPWS ) -- TAZ JOHNSON ([id number]) 1935 M Date Time Provider Department 06/13/24 3:40 PM ELISA GARCIA During your visit today, we recorded the following information about you: Pulse Blood pressure Weight 87/minute 136/84 91.2 kg Elisa Garcia APRN.CNP 06/14/2024 11:54 AM Signed Chief Complaint Patient presents with: BP Check HPI Taz Johnson is a 89 year old male who presents here today for Above Complaints.. Pt was seen 05/30/24 with Elisa Garcia APRN.CNP. Per note: HPI Taz Johnson is a 89 year old male who [...] GERD (gastroesophageal reflux disease) Melanoma (HCC) 1991 [place] [facility] Nurse Persistent atrial fibrillation (HCC) 10/11/2019 Admitted 09/05/2019 [facility]. Followed by [place] [facility]. Previous Surgical History PAST SURGICAL [...] 2012 L Rotator cuff repair - bilateral [facility] PAST SURGICAL HISTORY OF plastic surgery [...] Family History Patient Allergies ALLERGIES Allergen Reactions Kemah Other: See Comments sneezing,runny nose Schertz Cough also cy[place] with same reaction Mold [...] Yes hy (more content not included)... Normal [facility] CNPNon 06-08-2024 CNPN Telephone (PMNA11) -- TAZ JOHNSON ([id number]) 1935 M Date Time Provider Department 06/08/24 CITLALLI ARNOLD PMNA11 During your visit today, we recorded the following information about you: Citlalli Arnold RN 06/08/2024 3:49 PM Addendum 06/08/24 Omar Treadwell requests images from [place]: CTA Chest 04/13/2024 [facility] [address] [place] [address] Amandeep pushing now via [employer]. Film arrived. Notified Melinda. Citlalli Arnold RN Respiratory [place] [facility] Allergies As of Date: 06/08/2024 Noted Allergy Reaction CYPRESS 09/22/2010 14 - Other: See Comments Comments: sneezing,runny nose CEDAR 08/17/2010 3 - Cough Comments: also [place] with same reaction MOLD 08/17/2010 3 - Cough PREDNISONE 05/16/2024 1 - Mental Status Change Comments: Hallucinations Date Reviewed: 05/30/2024 Reviewed by: Elisa Garcia APRN.TERMINAL COMPUTER OPERATOR - Fully Assessed Reason for Visit: FILM HENRY [Other] Prescriptions as of 06/08/2024 - apixaban [...] (HCC) [N18.31] 11/16/2021 Encounter Status:Closed by CITLALLI ARNOLD on 06/08/24 [facility] Catie 06-07-2024 [place] Telephone (FAMPWS) -- TAZ JOHNSON ([id number]) 1935 M Date Time Provider Department 06/07/24 DIPAK AGUILAR During your visit today, we recorded the following information about you: Tali Hogan RN 06/07/2024 9:11 AM Signed Maximo with [facility] calls to let provider know [...] 06/08/2024 10:24 AM Signed Noted, thank you. Elisa Garcia APRN.ESTIVEN Allergies As of Date: 06/07/2024 Noted Allergy Reaction CYPRESS 09/22/2010 14 - Other: See Comments Comments: sneezing,runny nose CEDAR 08/17/2010 3 - Cough Comments: also [place] with same reaction MOLD 08/17/2010 3 - Cough PREDNISONE 05/16/2024 1 - Mental Status Change Comments: Hallucinations Date Reviewed: 05/30/2024 Reviewed by: Elisa Garcia APRN.TERMINAL COMPUTER OPERATOR - Fully Assessed Reason for Visit: Patient [...] Encounter Status:Closed by TALI HOGAN on 06/11/24 [facility] CNOVmichael 05-30-2024 CNOV Office Visit (FAMPWS ) -- TAZ JOHNSON ([id number]) 1935 M Date Time Provider Department 05/30/24 2:20 PM ELISA GARCIA During your visit today, we recorded the following information about you: Pulse Blood pressure Weight 78/minute 110/78 92.1 kg Elisa GarciaNEHA.TERMINAL COMPUTER OPERATOR 05/30/2024 6:37 PM Signed Chief Complaint Patient presents with: Follow Up: [place] leg swelling and elevated BP HPI Taz Johnson is a 89 year old male who [...] GERD (gastroesophageal reflux disease) Melanoma (HCC) 1991 [place] [facility] Nurse Persistent atrial fibrillation (HCC) 10/11/2019 Admitted 09/05/2019 [facility]. Followed by [facility]. Previous Surgical History PAST SURGICAL [...] 2012 L Rotator cuff repair - bilateral [facility] PAST SURGICAL HISTORY OF plastic surgery for [...] Family History Patient Allergies ALLERGIES Allergen Reactions Kemah Other: See Comments sneezing,runny nose [place] Cough also cy[place] with same reaction Mold [...] since quitting: (more content not included)... [facility] C[facility]N Telephone (FAMPWS) -- TAZ JOHNSON ([id number]) 1935 M Date Time Provider Department 05/24/24 DIPAK AGUILAR [facility] During your visit today, we recorded the following information about you: Maryan Ron RN 05/24/2024 10:43 AM Signed Patient's calls [...] from his time acute rehab facility in [place] for hydralazine 25 mg QID as needed for systolic BP >150. states that she dis not give hydralazine today. Please advise if patient needs to keep taking lasix and about hydralazine prescription. Medication is not listed on patient's medications. Please review and advise, LUPE Bahena Jordan L, DO 05/29/2024 4:53 PM Signed Will forward to [facility] to review with /patient at office visit tomorrow Dipak Aguilar DO Allergies As of Date: 05/24/2024 Noted Allergy Reaction CYPRESS 09/22/2010 14 - Other: See Comments Comments: sneezing,runny nose CEDAR 08/17/2010 3 - Cough Comments: also [place] with same reaction MOLD 08/17/2010 3 - Cough PREDNISONE 05/16/2024 1 - Mental Status Change Comments: Hallucinations Date Reviewed: 05/16/2024 Reviewed by: Radha Berman APRN.TERMINAL COMPUTER OPERATOR - Fully Assessed Reason for Visit: Patient [...] (HCC) [N18.31] 11/16/2021 Encounter Status:Closed by MARYAN RON [facility] C[facility] Tele[facility] (FAMPWS) -- TAZ JOHNSON ([id number]) 1935 M Date Time Provider Department 05/21/24 [facility] During your visit today, we recorded the following information about you: Gabrielle Friedman, RN 05/21/2024 4:25 PM Signed Moira with [facility] [...] Signed See below note as well from snf. Martina physical therapist from [facility] [...] Hydralazine on hand prescribed by hospital in [place] when he was admitted. Pt is to [...] leg swelling are doing. She verbalizes understanding. Elisa Garcia APRN.ESTIVEN 05/22/2024 2:56 PM Signed Thank you for the update, agree with below. Elisa Garcia APRN.Carrie Mariscal MA 05/22/2024 4:33 PM Signed Martina Del Angel MA Allergies As of Date: 05/21/2024 Noted Allergy Reaction CYPRESS 09/22/2010 14 - Other: See Comments Comments: sneezing,runny nose CEDAR 08/17/2010 3 - Cough Comments: also [place] with same reaction MOLD 08/17/2010 3 - Cough PREDNISONE 05/16/2024 1 - Mental Status Change Comments: Hallucinations Date Reviewed: 05/16/2024 Reviewed by: Radha Berman APRN.ESTIVEN - Fully Assessed Reason for Visit: Home [...] [J4* Pers (more content not included)... Normal [facility] Catie 05-17-2024 ESTIVEN Telephone (FAMPWS) -- TAZ JOHNSON ([id number]) 1935 M Date Time Provider Department 05/17/24 DIPAK AGUILAR During your visit today, we recorded the following information about you: Kylee Fraser, RN 05/17/2024 3:12 PM Signed [facility] called and asked to have last OV noted faxed over. Faxed to fax # [phone]. Allergies As of Date: 05/17/2024 Noted Allergy Reaction CYPRESS 09/22/2010 14 - Other: See Comments Comments: sneezing,runny nose CEDAR 08/17/2010 3 - Cough Comments: also [place] with same reaction MOLD 08/17/2010 3 - Cough PREDNISONE 05/16/2024 1 - Mental Status Change Comments: Hallucinations Date Reviewed: 05/16/2024 Reviewed by: Radha Berman APRN.TERMINAL COMPUTER OPERATOR - Fully Assessed Reason for Visit: Fax [...] 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] 11/16/2021 Encounter Status:Closed by KYLEE FRASER on 05/17/24 Normal [facility] US DVT LOWER BILon US DVT LOWER KELLEY * * *Final Report* * * DATE OF EXAM: May 17 2024 9:20AM WRU 1005 - US DVT LOWER KELLEY / PROCEDURE REASON: multiple diagnoses * * * * Physician Interpretation * * * * Examination: US DVT LOWER KELLEY History: Hospital discharge follow-up Bilateral leg edema [...] of the left and right lower extremities. Junior Qa Analyst: [facility] Transcribe Date/Time: May 17 2024 3:38P Dictated by : HENRY PEÑA MD This examination was interpreted and the report reviewed and electronically signed by: HENRY PEÑA MD on May 17 2024 3:42PM EST [id number] Normal [facility] US Lower extremity vein - bi lateralon 05-17-2024 IMPRESSION: Negative study for proximal DVT in the left and right lower extremities. Negative study for calf DVT in the left and right lower extremities. Negative study for superficial thrombophlebitis in the imaged segments of the left and right lower extremities. Junior Qa Analyst: [facility] Transcribe Date/Time: May 17 2024 3:38P Dictated by : HENRY PEÑA MD This examination was interpreted and the report reviewed and electronically signed by: HENRY EPÑA MD on May 17 2024 3:42PM EST DIVISION OF RADIOLOGY * * *Final Report* * * DATE OF EXAM: May 17 2024 9:20AM WRU 1005 - US DVT LOWER KELLEY / PROCEDURE REASON: multiple diagnoses * * * * Physician Interpretation * * * * Examination: US DVT LOWER KELLEY History: Hospital discharge follow-up Bilateral leg edema [...] not otherwise assessed. DIVISION OF RADIOLOGY Provider, [facility] - 05/17/2024 * * *Final Report* * * DATE OF EXAM: May 17 2024 9:20AM WRU 1005 - US DVT LOWER KELLEY / PROCEDURE REASON: multiple diagnoses * * * * Physician Interpretation * * * * Examination: US DVT LOWER KELLEY History: Hospital discharge follow-up Bilateral leg edema [...] of the left and right lower extremities. Junior Qa Analyst: BLANK Transcribe Date/Time: May 17 2024 3:38P Dictated by : HENRY PEÑA MD This examination was interpreted and the report reviewed and electronically signed by: HENRY PEÑA MD on May 17 2024 3:42PM EST [facility] Radiology Study observation (narrative) [facility] US Lower extremity vein - bi lateralOrdered By: Ccf Provider on 05-17-2024 [facility] CBC W Auto Differential pane l (Bld)on 05-16-2024 Basophils (Bld) [#/Vol] 0.1 10*3/uL [facility] Basophils/100 WBC (Bld) 1 % [facility] Differential cell count method Nom (Bld) Auto [facility] Eosinophils (Bld) [#/Vol] 0.35 10*3/uL [facility] Eosinophils/100 WBC (Bld) 3.4 % [facility] Erythrocyte distribution width (RBC) [Ratio] 14.7 % 11.5 - 15.0 % [facility] Hematocrit (Bld) [Volume fraction] 45.5 % 39.0 - 51.0 % [facility] Hemoglobin (Bld) [Mass/Vol] 14.9 g/dL 13.0 - 17.0 g/dL [facility] Immature granulocytes (Bld) [#/Vol] 0.11 10*3/uL High NINF [facility] Immature granulocytes/100 WBC (Bld) 1.1 % [facility] Interpretation and review of laboratory results Abnormal [facility] Lymphocytes (Bld) [#/Vol] 2.01 10*3/uL [facility] Lymphocytes/100 WBC (Bld) 19.5 % [facility] MCH (RBC) [Entitic mass] 30 pg 26.0 - 34.0 pg [facility] MCHC (RBC) [Mass/Vol] 32.7 g/dL 30.5 - 36.0 g/dL [facility] MCV (RBC) [Entitic vol] 91.7 fL 80.0 - 100.0 fL [facility] Monocytes (Bld) [#/Vol] 1.29 10*3/uL [facility] Monocytes/100 WBC (Bld) 12.5 % [facility] Neutrophils (Bld) [#/Vol] 6.47 10*3/uL [facility] Neutrophils/100 WBC (Bld) 62.5 % [facility] Nucleated RBC (Bld) [#/Vol] NINF [facility] Nucleated RBC/100 WBC (Bld) [Ratio] 0 % /100 WBC [facility] Platelet mean volume (Bld) [Entitic vol] 10.5 fL 9.0 - 12.7 fL [facility] Platelets (Bld) [#/Vol] 220 10*3/uL [facility] RBC (Bld) [#/Vol] 4.96 10*6/uL 4.20 - 6.0 0 m/uL [facility] WBC (Bld) [#/Vol] 10.33 10*3/uL [facility] Basophils (Bld) [#/Vol] 0.10 10*3/uL Normal <0.11 [facility] Comment on above: Order Comment: Speci men Type: BLOOD SPECIMENOrdering Facility: [facility] Address: [address] [place] [address] Performed By: #### 5 7021-8 ####[facility] LABCLIA [id number] [address], [place] [address] [place] Basophils/100 WBC (Bld) 1.0 % Normal [facility] Comment on above: Order Comment: Speci men Type: BLOOD SPECIMENOrdering Facility: [facility] Address: [address] [place] [address] Performed By: #### 5 7021-8 ####[facility] LABCLIA [id number] [address], [place] [address] [place] Differential cell count method Nom (Bld) Auto Normal [facility] Comment on above: Order Comment: Speci men Type: BLOOD SPECIMENOrdering Facility: [facility] Address: [address] [place] [address] Performed By: #### 5 7021-8 ####[facility] LABCLIA [id number] [address], [place] [address] [place] Eosinophils (Bld) [#/Vol] 0.35 10*3/uL Normal <0.46 [facility] Comment on above: Order Comment: Speci men Type: BLOOD SPECIMENOrdering Facility: [facility] Address: [address] [place] [address] Performed By: #### 5 7021-8 ####[facility] LABCLIA [id number] [address], [facility] [place] Eosinophils/100 WBC (Bld) 3.4 % Normal [facility] Comment on above: Order Comment: Speci men Type: BLOOD SPECIMENOrdering Facility: [facility] Address: [address] [place] [address] Performed By: #### 5 7021-8 ####[facility] LABCLIA [id number] [address], [facility] [place] Erythrocyte distribution width (RBC) [Ratio] 14.7 % Normal 11.5-15.0 [facility] Comment on above: Order Comment: Speci men Type: BLOOD SPECIMENOrdering Facility: [facility] Address: [address] [place] [address] Performed By: #### 5 7021-8 ####[facility] LABIA [id number] [place] [address] [place] Hematocrit (Bld) [Volume fraction] 45.5 % Normal 39.0-51.0 [facility] Comment on above: Order Comment: Speci men Type: BLOOD SPECIMENOrdering Facility: [facility] Address: [address] [place] [address] Performed By: #### 5 7021-8 ####[facility] LABIA [id number] [place] [address] [place] Hemoglobin (Bld) [Mass/Vol] 14.9 g/dL Normal 13.0-17.0 [facility] Comment on above: Order Comment: Speci men Type: BLOOD SPECIMENOrdering Facility: [facility] Address: [address] [place] [address] Performed By: #### 5 7021-8 ####[facility] LABIA [id number] [place] [address] [place] Immature granulocytes (Bld) [#/Vol] 0.11 10*3/uL High <0.10 [facility] Comment on above: Order Comment: Speci men Type: BLOOD SPECIMENOrdering Facility: [facility] Address: [address] [place] [address] Performed By: #### 5 7021-8 ####[facility] LABIA [id number] [place] [address] [place] Immature granulocytes/100 WBC (Bld) 1.1 % Normal [facility] Comment on above: Order Comment: Speci men Type: BLOOD SPECIMENOrdering Facility: [facility] Address: [address] [place] [address] Performed By: #### 5 7021-8 ####[facility] LABCLIA [id number] [place] [address] [place] Lymphocytes (Bld) [#/Vol] 2.01 10*3/uL Normal 1.00-4.00 [facility] Comment on above: Order Comment: Speci men Type: BLOOD SPECIMENOrdering Facility: [facility] Address: [address] [place] [address] Performed By: #### 5 7021-8 ####[facility] LABCLIA [id number] [place] [address] [place] Lymphocytes/100 WBC (Bld) 19.5 % Normal [facility] Comment on above: Order Comment: Speci men Type: BLOOD SPECIMENOrdering Facility: [facility] Address: [address] [place] [address] Performed By: #### 5 7021-8 ####[facility] LABCLIA [id number] [place] [address] [place] MCH (RBC) [Entitic mass] 30.0 pg Normal 26.0-34.0 [facility] Comment on above: Order Comment: Speci men Type: BLOOD SPECIMENOrdering Facility: [facility] Address: [address] [place] [address] Performed By: #### 5 7021-8 ####[facility] LABCLIA [id number] [place] [address] [place] MCHC (RBC) [Mass/Vol] 32.7 g/dL Normal 30.5-36.0 [facility] Comment on above: Order Comment: Speci men Type: BLOOD SPECIMENOrdering Facility: [facility] Address: [address] [place] [address] Performed By: #### 5 7021-8 ####[facility] LABCLIA [id number] [address] [address] [place] MCV (RBC) [Entitic vol] 91.7 fL Normal 80.0-100.0 [facility] Comment on above: Order Comment: Speci men Type: BLOOD SPECIMENOrdering Facility: [facility] Address: [address] [place] [address] Performed By: #### 5 7021-8 ####[facility] LABCLIA [id number] [address], [place] [address] [place] Monocytes (Bld) [#/Vol] 1.29 10*3/uL High <0.87 [facility] Comment on above: Order Comment: Speci men Type: BLOOD SPECIMENOrdering Facility: [facility] Address: [address] [place] [address] Performed By: #### 5 7021-8 ####[facility] LABCLIA [id number] [place] [address] [place] Monocytes/100 WBC (Bld) 12.5 % Normal [facility] Comment on above: Order Comment: Speci men Type: BLOOD SPECIMENOrdering Facility: [facility] Address: [address] [place] [address] Performed By: #### 5 7021-8 ####[facility] LABCLIA [id number] [address], [place] [address] [place] Neutrophils (Bld) [#/Vol] 6.47 10*3/uL Normal 1.45-7.50 [facility] Comment on above: Order Comment: Speci men Type: BLOOD SPECIMENOrdering Facility: [facility] Address: [address] [place] [address] Performed By: #### 5 7021-8 ####[facility] LABCLIA [id number] [address], [facility]95 [place] Neutrophils/100 WBC (Bld) 62.5 % Normal [facility] Comment on above: Order Comment: Speci men Type: BLOOD SPECIMENOrdering Facility: [facility] Address: [address] [place] [address] Performed By: #### 5 7021-8 ####[facility] LABCLIA [id number] [place] [address] [place] Nucleated RBC (Bld) [#/Vol] 10*3/uL Normal <0.01 [facility] Comment on above: Order Comment: Speci men Type: BLOOD SPECIMENOrdering Facility: [facility] Address: [address] [place] [address] Performed By: #### 5 7021-8 ####[facility] LABCLIA [id number] [place] [address] [place] Nucleated RBC/100 WBC (Bld) [Ratio] 0.0 /100 WBC Normal [facility] Comment on above: Order Comment: Speci men Type: BLOOD SPECIMENOrdering Facility: [facility] Address: [address] [place] [address] Performed By: #### 5 7021-8 ####[facility] LABIA [id number] [place] [address] [place] Platelet mean volume (Bld) [Entitic vol] 10.5 fL Normal 9.0-12.7 [facility] Comment on above: Order Comment: Speci men Type: BLOOD SPECIMENOrdering Facility: [facility] Address: [address] [place] [address] Performed By: #### 5 7021-8 ####[facility] LABCLIA [id number] [place] [id number] [place] Platelets (Bld) [#/Vol] 220 10*3/uL Normal 150-400 [facility] Comment on above: Order Comment: Speci men Type: BLOOD SPECIMENOrdering Facility: [facility] Address: [address] [place] [address] Performed By: #### 5 7021-8 ####[facility] LABCLIA [id number] [place] [address] [place] RBC (Bld) [#/Vol] 4.96 10*6/uL Normal 4.20-6.00 [facility] Comment on above: Order Comment: Speci men Type: BLOOD SPECIMENOrdering Facility: [facility] Address: [address] [place] [address] Performed By: #### 5 7021-8 ####[facility] [id number] [place] [address] [place] WBC (Bld) [#/Vol] 10.33 10*3/uL Normal 3.70-11.00 [facility] Comment on above: Order Comment: Speci men Type: BLOOD SPECIMENOrdering Facility: [facility] Address: [address] [place] [address] Performed By: #### 5 7021-8 ####[facility] [id number] [address] [place] CNOVon 05-16-2024 CNOV Office Visit (FAMPWS ) -- TAZ JOHNSON ([id number]) 1935 M Date Time Provider Department 05/16/24 1:00 PM RADHA BERMAN FAMPWS During your visit today, we recorded the following information about you: Pulse Respiration Blood pressure Weight 87/minute 16/minute 130/68 96.3 kg Radha Berman APRN.TERMINAL COMPUTER OPERATOR 05/16/2024 6:48 PM Signed Chief Complaint Patient presents with: needs referral for pt and ot and uology referral HPI Taz Johnson is a 89 year old male who presents here today for Above Complaints. Taz is an established patient of Dr. Jeff DO. Pt was admitted to [facility] in [place] on 04/13 and 04/15. 04/13-- dx with [...] facility on 05/11 and drove back to [place] with and daughter. Hx of CVA in December. Never followed up with neurology d/t going to [place] for the winter months just after this. [...] Family reports legs elevated entire drive from [place] Denies any SOB. Pt is on eliquis since stroke. Needs assistance at home. Currently lives at home back in [place] with . Daughter lives nearby to help. Does not want to move into assistive living or mcc. Daughter agrees if they can get PT, OT, home health aide, and long term to come to home, he should be [...] on any diuretic. Traveled by car from [place] to [place] yesterday. Reports having legs elevated [...] GERD (gastroesophageal reflux disease) Melanoma (HCC) 1991 [facility] Nurse Persistent atrial fibrillation (HCC) 10/11/2019 Admitted 09/05/2019 [facility]. Followed by [facility]. Previous Surgical History PAST SURGICAL [...] WHEN PFRM (more content not included)... Normal [facility] Comprehensive metabolic 2000 panelon 05-16-2024 Albumin [Mass/Vol] 3.8 g/dL Low 3.9-4.9 [facility] Comment on above: Order Comment: Speci men Type: BLOOD SPECIMENOrdering Facility: [facility] Address: [address] [place] [address] Performed By: #### 3 016-3, 59501-0, 73240-7, 66847-4 ####[facility] LABCLIA [id number] [place] [address] [place] ALP [Catalytic activity/Vol] 126 U/L High 38-113 [facility] Comment on above: Order Comment: Speci men Type: BLOOD SPECIMENOrdering Facility: [facility] Address: [address] [place] [address] Performed By: #### 3 016-3, 10251-2, 03771-3, 20350-6 ####[facility] LABCLIA [id number] [place] [address] [place] ALT [Catalytic activity/Vol] 16 U/L Normal 10-54 [facility] Comment on above: Order Comment: Speci men Type: BLOOD SPECIMENOrdering Facility: [facility] Address: [address] [place] [address] Performed By: #### 3 016-3, 43329-1, 59248-4, 17512-9 ####[facility] LABCLIA [id number] [place] [address] [place] Anion gap [Moles/Vol] 10 mmol/L Normal 8-15 [facility] Comment on above: Order Comment: Speci men Type: BLOOD SPECIMENOrdering Facility: [facility] Address: [address] [place] [address] Performed By: #### 3 016-3, 91256-4, 02117-9, 36525-5 ####[facility] LABCLIA [id number] [place] [id number] [place] AST [Catalytic activity/Vol] 26 U/L Normal 14-40 [facility] Comment on above: Order Comment: Speci men Type: BLOOD SPECIMENOrdering Facility: [facility] Address: [address] [place] [address] Performed By: #### 3 016-3, 33725-5, 44235-7, 66065-2 ####[facility] LABCLIA [id number] [place] [address] [place] Bilirubin [Mass/Vol] 0.9 mg/dL Normal 0.2-1.3 [facility] Comment on above: Order Comment: Speci men Type: BLOOD SPECIMENOrdering Facility: [facility] Address: [address] [place] [address] Performed By: #### 3 016-3, 89340-5, 25625-9, 58009-2 ####[facility] LABCLIA [id number] [place] [address] [place] Calcium [Mass/Vol] 10.2 mg/dL Normal 8.5-10.2 [facility] Comment on above: Order Comment: Speci men Type: BLOOD SPECIMENOrdering Facility: [facility] Address: [address] [place] [address] Performed By: #### 3 016-3, 66999-7, 15347-0, 00954-5 ####[facility] LABCLIA [id number] [place] [address] [place] Chloride [Moles/Vol] 106 mmol/L Normal 98-107 [facility] Comment on above: Order Comment: Speci men Type: BLOOD SPECIMENOrdering Facility: [facility] Address: [address] [place] [address] Performed By: #### 3 016-3, 20211-8, 14212-7, 67049-8 ####[facility] LABCLIA [id number] [place] [address] [place] CO2 [Moles/Vol] 26 mmol/L Normal 22-30 [facility] Comment on above: Order Comment: Speci men Type: BLOOD SPECIMENOrdering Facility: [facility] Address: [address] [place] [address] Performed By: #### 3 016-3, 73479-1, 14205-9, 64223-7 ####[facility] LABCLIA [id number] [place] [address] [place] Creatinine [Mass/Vol] 1.29 mg/dL High 0.73-1.22 [facility] Comment on above: Order Comment: Speci men Type: BLOOD SPECIMENOrdering Facility: [facility] Address: [address] [place] [address] Performed By: #### 3 016-3, 00976-7, 83463-2, 87605-4 ####[facility] LABCLIA [id number] [place] [address] [place] Creatinine and Glomerular filtration rate.predicted panel (S/P/Bld) 53 mL/min/1.73m??? Low >=60 [facility] Comment on above: Order Comment: Speci men Type: BLOOD SPECIMENOrdering Facility: [facility] Address: [address] [place] [address] Result Comment: Yani mated Glomerular Filtration Rate [...] actual GFR. Performed By: #### 3 016-3, 64015-2, 88408-4, 45407-9 ####[facility] LABCLIA [id number] [place] [id number] [place] Glucose [Mass/Vol] 117 mg/dL High 74-99 [facility] Comment on above: Order Comment: Speci men Type: BLOOD SPECIMENOrdering Facility: [facility] Address: [address] [place] [address] Result Comment: The [place] Diabetes Association (ADA) provides guidance for cutoff [...] Standards of Medical Care in Diabetes 2016, [place] Diabetes Association. Diabetes Care. 2016.39(Suppl 1). Performed By: #### 3 016-3, 98628-2, 63661-0, 66599-3 ####[facility] LABCLIA [id number] [place] [address] [place] Potassium [Moles/Vol] 4.2 mmol/L Normal 3.7-5.1 [facility] Comment on above: Order Comment: Speci men Type: BLOOD SPECIMENOrdering Facility: [facility] Address: [address] [place] [address] Performed By: #### 3 016-3, 56896-9, 73377-6, 65390-7 ####[facility] LABIA [id number] [place] [id number] [place] Protein [Mass/Vol] 7.3 g/dL Normal 6.3-8.0 [facility] Comment on above: Order Comment: Speci men Type: BLOOD SPECIMENOrdering Facility: [facility] Address: [address] [place] [address] Performed By: #### 3 016-3, 58947-1, 57130-3, 09848-1 ####[facility] LABIA [id number] [place] [id number] [place] Sodium [Moles/Vol] 142 mmol/L Normal 136-144 [facility] Comment on above: Order Comment: Jayson moffett Type: BLOOD SPECIMENOrdering Facility: [facility] Address: [address] [place] [address] Performed By: #### 3 016-3, 11239-4, 20527-1, 80396-5 ####[facility] LABCLIA [id number] [place] [address] [place] Urea nitrogen [Mass/Vol] 21 mg/dL Normal 9-24 [facility] Comment on above: Order Comment: Jayson men Type: BLOOD SPECIMENOrdering Facility: [facility] Address: [address] [place] [address] Performed By: #### 3 016-3, 68584-1, 73355-2, 81797-1 ####[facility] LABCLIA [id number] [place] [address] [place] HbA1c (Bld)on 05-16-2024 Average glucose Estimated from glycated hemoglobin (Bld) [Mass/Vol] 148 mg/dL [facility] Comment on above: eAG: (Estimated aver age glucose) is a calculated value from HgbA1c and is sales support representative of the average blood glucose level in the last 2-3 month period. HbA1c (Bld) [Mass fraction] 6.8 % High 4.3 - 5.6 % [facility] Comment on above: [place] Diabetes As sociation guidelines indicate that patients with HgbA1c in the range 5.7-6.4% are at increased risk for development of diabetes, and intervention by lifestyle modification may be beneficial. HgbA1c greater or equal to 6.5% is considered diagnostic of diabetes. Interpretation and review of laboratory results Abnormal [facility] Average glucose Estimated from glycated hemoglobin (Bld) [Mass/Vol] 148 mg/dL Normal [facility] Comment on above: Order Comment: Jayson moffett Type: BLOOD SPECIMENOrdering Facility: [facility] Address: [address] [place] [address] Result Comment: eAG: (Estimated average glucose) is a calculated value from HgbA1c and is sales support representative of the average blood glucose level in the last 2-3 month period. Performed By: #### 5 5454-3 ####[facility] LABCLIA [id number] [place] [address] [place] HbA1c (Bld) [Mass fraction] 6.8 % High 4.3-5.6 [facility] Comment on above: Order Comment: Jayson moffett Type: BLOOD SPECIMENOrdering Facility: [facility] Address: [address] [place] [address] Result Comment: [place] Diabetes Association guidelines indicate that patients with HgbA1c in the range 5.7-6.4% are at increased risk for development of diabetes, and intervention by lifestyle modification may be beneficial. HgbA1c greater or equal to 6.5% is considered diagnostic of diabetes. Performed By: #### 5 5454-3 ####[facility] LABCLIA [id number] [place] [address] [place] Lipid 1996 panelon 5 Cholesterol [Mass/Vol] 65 mg/dL Normal <200 [facility] Comment on above: Order Comment: Jayson moffett Type: BLOOD SPECIMENOrdering Facility: [facility] Address: [address] [place] [address] Result Comment: <200 mg/dL, Desirable 200-239 mg/dL, Borderline high >239 mg/dL, High Performed By: #### 3 016-3, 14723-3, 82324-4, 19027-2 ####[facility] LABCLIA [id number] [address] [place] Cholesterol in HDL [Mass/Vol] 27 mg/dL Low >39 [facility] Comment on above: Order Comment: Jayson moffett Type: BLOOD SPECIMENOrdering Facility: [facility] Address: [address] [place] [address] Result Comment: 40-5 9 mg/dL, Acceptable >59 mg/dL, High: Negative risk factor for coronary heart disease <40 mg/dL, Low: Positive risk factor for coronary heart disease Performed By: #### 3 016-3, 72823-9, 21945-3, 83134-4 ####[facility] LABCLIA [id number] [place] [id number] [place] Cholesterol in LDL [Mass/Vol] 21 mg/dL Normal <100 [facility] Comment on above: Order Comment: Speci men Type: BLOOD SPECIMENOrdering Facility: [facility] Address: [address] [place] [address] Result Comment: <100 mg/dL, Optimal 100-129 mg/dL, Near optimal/above optimal 130-159 mg/dL, Borderline high 160-189 mg/dL, High >189 mg/dL, Very high Secondary prevention optimal LDL Cholesterol levels are recommended to be < 70 mg/dL Performed By: #### 3 016-3, 77767-2, 33089-7, 33049-5 ####[facility] LABIA [id number] [address] [place] Cholesterol in LDL/Cholesterol in HDL [Mass ratio] 0.78 {ratio} Normal <2.54 [facility] Comment on above: Order Comment: Speci men Type: BLOOD SPECIMENOrdering Facility: [facility] Address: [address] [place] [address] Result Comment: Joanne tate: 1. National Cholesterol Education Program ATP III Guideline At-A-Glance Quick Desk Reference: National Heart, Lung, and Blood [place]. National Institutes of Health. 2001: NIH Publication No. 01-3305. 2. An International Atherosclerosis Society position paper: global recommendations for the management of dyslipidemia: executive summary, Atherosclerosis. 2014: 232(2):410-413. Performed By: #### 3 016-3, 64112-1, 23872-0, 18915-9 ####[facility] LABCLIA [id number] [address] [place] Cholesterol in VLDL [Mass/Vol] 17 mg/dL Normal <30 [facility] Comment on above: Order Comment: Speci men Type: BLOOD SPECIMENOrdering Facility: [facility] Address: [address] [place] [address] Performed By: #### 3 016-3, 80961-0, 61660-5, 59917-2 ####[facility] LABCLIA [id number] [address] [place] [address] [place] Cholesterol non HDL [Mass/Vol] 38 mg/dL Normal <130 [facility] Comment on above: Order Comment: Speci men Type: BLOOD SPECIMENOrdering Facility: [facility] Address: [address] [place] [address] Result Comment: <130 mg/dL, Optimal 130-159 mg/dL, Near optimal/above optimal 160-189 mg/dL, Borderline high 190-219 mg/dL, High >219 mg/dL, Very high Secondary prevention optimal non HDL Cholesterol levels are recommended to be <100 mg/dL Performed By: #### 3 016-3, 65611-1, 42783-6, 31399-1 ####[facility] LABCLIA [id number] [address] [address] [place] Cholesterol.total/Chol esterol in HDL [Mass ratio] 2.41 {ratio} Normal <5.10 [facility] Comment on above: Order Comment: Speci men Type: BLOOD SPECIMENOrdering Facility: [facility] Address: [address] [place] [address] Performed By: #### 3 016-3, 75477-4, 99099-2, 68752-8 ####[facility] LABCLIA [id number] [address] [address] [place] FASTING TIME 3 hrs Normal [facility] Comment on above: Order Comment: Speci men Type: BLOOD SPECIMENOrdering Facility: [facility] Address: [address] [place] [address] Performed By: #### 3 016-3, 03520-1, 79826-5, 64930-0 ####[facility] LABCLIA [id number] [address] [address] [place] Triglyceride [Mass/Vol] 85 mg/dL Normal <150 [facility] Comment on above: Order Comment: Speci men Type: BLOOD SPECIMENOrdering Facility: [facility] Address: [address] [place] [address] Result Comment: <150 mg/dL, Normal 150-199 mg/dL, Borderline high 200-499 mg/dL, High >499 mg/dL, Very high Performed By: #### 3 016-3, 42734-3, 99453-5, 88761-4 ####[facility] LABIA [id number] [address] NT-proBNP SerPl-mCncon 05-16 Natriuretic peptide.B prohormone N-Terminal [Mass/Vol] 3593 pg/mL High <450 [facility] Comment on above: Order Comment: Speci men Type: BLOOD SPECIMENOrdering Facility: [facility] Address: [address] [place] [address] Performed By: #### 3 016-3, 66952-6, 40153-6, 47431-0 ####[facility] LABIA [id number] [address] [place] TSH SerPl-aCncon 05-16-2024 TSH Qn 2.660 m[IU]/L Normal 0.270-4.200 [facility] Comment on above: Order Comment: Speci men Type: BLOOD SPECIMENOrdering Facility: [facility] Address: [address] [place] [address] Performed By: #### 3 016-3, 76596-2, 19879-8, 99305-4 ####[facility] [id number] [address] [place] Catie 01-31-2024 ESTIVENN Telephone (CAWSTR) -- TAZ JOHNSON ([id number]) 1935 M Date Time Provider Department 01/31/24 ANALISA NICOLE During your visit today, we recorded the following information about you: Evelio Jack RN 01/31/2024 1:10 PM Signed ----- Message from Denae Villareal RN sent at 01/31/2024 12:47 PM EST ----- ----- Message ----- From: Analisa Nicole MD Sent: 01/31/2024 11:59 AM EST To: Denae Poole RN Normal stress Please inform patient Evelio Wolff RN 01/31/2024 1:16 PM Signed Patient called and given the below results. 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 Asking if something different could be called into pharmacy in its place. Pt is [facility] [place] wanting this called to [facility] Dipak Miranda DO 01/10/2024 4:26 PM Signed Please have [...] by mouth once daily. Encounter Status:Closed by LAURA BEJARANO LPN on 01/10/24 [facility] Catie 01-04-2024 [place] Telephone (AGCARDPOB ) -- TAZ JOHNSON ([id number]) 1935 M Date Time Provider Department 01/04/24 ANALISA NICOLE During your visit today, we recorded the following information about you: Thomas Escobarcl 01/04/2024 2:53 PM Signed Clearance scanned in from [facility] placed in Dr. Nicole box to be reviewed. Jacob Dylon January 04, 2024 2:53 PM Jacob Escobar 01/24/2024 3:51 PM Signed Recieved completed clearance scanned in documents and faxed back to sender. Jacob Dylon January 24, 2024 3:51 PM Allergies As [...] 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] 11/16/2021 Encounter Status:Closed by JACOB ESCOBAR on 01/04/24 [facility] Catie 12-13-2023 ESTIVENN Telephone (FAMPWS) -- TAZ JOHNSON ([id number]) 1935 M Date Time Provider Department 12/13/23 ELISA GARCIA During your visit today, we recorded the following information about you: Elisa Garcia APRN.CNP 12/13/2023 7:00 AM Signed Please [...] clinic but states he leaves tomorrow for [place] for 6 months and will call to set up appt when he returns. MADISYN Trevino Rebekah, APRN.CNP 12/13/2023 1:34 PM Signed Noted, thank you. 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 ALLERGIES AND MEDICATIONS REVIEWED BY: Evelio Jack RN PROCEDURE TYPE: NM STRESS: 0.4 mg of Lexiscan was administered IV at 1120 over 10 Seconds by Evelio Sameer, RN Reversal agent used:None LOT [id number] EXP 06/16 IV SITE: IV palced by nuclear tecnologist POST EXAM PIV STATUS: Discontinued by Excel Developer PATIENT DISCHARGED TO: Nuclear Medicine Department for post stress imaging A Diagnostic radioactive procedure has taken place, with no further precautions necessary other than routine body substance precautions. More information regarding radiation safety can be found using this link: [email or web address] -- %20Diagnostic%20Nuclear%20 Medicine%20Procedures.[email or web address] SIGNATURE: Evelio Jack RN PATIENT NAME:Taz Johnson DATE: 12/12/23 TIME: 3:56 PM Referring Provider: ANALISA NICOLE [[id number]] Allergies As of Date: 12/12/2023 Noted Allergy [...] 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] 11/16/2021 Encounter Status:Closed by EVELIO JACK on 12/12/23 [facility] Catie 12-12-2023 [facility] Telephone (CAWSTR) -- TAZ JOHNSON ([id number]) 1935 M Date Time Provider Department [facility]/12[facility] During your visit today, we recorded the following information about you: Ananya So LPN 12/12/2023 8:14 AM Signed Patient has a stress test this morning at 10am. He mistakenly took his Atorvastatin and was not sure if he should reschedule. [place] 6 months on Tuesday as well. Please call patient back at [phone]. Ananya So LPN Allergies As of Date: 12/12/2023 Noted Allergy Reaction CYPRESS 09/22/2010 14 - Other: See Comments Comments: sneezing,runny nose CEDAR 08/17/2010 3 - Cough Comments: also [place] with same reaction MOLD 08/17/2010 3 - Cough Date Reviewed: 12/05/2023 Reviewed by: Lavren Blakely RPFT - Fully Assessed Prescriptions as [...] (HCC) [N18.31] 11/16/2021 Encounter Status:Closed by ANANYA SO on 12/12/23 Normal [facility] CARDIAC PERF STRESS/PHARM on 12-12-2023 NM CARDIAC PERF STRESS/PHARM * * *Final Report* * * DATE OF EXAM: Dec 12 2023 12:50PM WON 0006 - NM CARDIAC PERF STRESS/PHARM / PROCEDURE REASON: Shortness of breath * * * * Physician Interpretation * * * * PATIENT: Name: MR. TAZ JOHNSON Age: 88 years Gender: M CONCLUSIONS: 1. [...] later. See administered radiotracer and doses below. [facility] Date of service: 12/12/2023 7:52:14 AM [...] Final * * * Stress ECG Report: [facility] Date of service: 12/12/2023 7:52:14 AM Ordering physician: ANALISA NICOLE digital strategy specialist: Evelio Jack RN Interpreting physician: Ilan Mata MD Patient name: MR. TAZ JOHNSON Age: 88 years Gender: M Height: 180.34 [...] 148/82 mmHg. The double product achieved was [id number]. Medications: Last Used METOPROLOL 2 Days Resting ECG: Atrial Fib/Flutter, Complete RBBB and Rare PVCs (<3/Min) Symptoms at rest: No symptoms Pharamcologic Protocol: Regadenoson Stress Exercise Table: +-----+---+---+---+ Stage HR SYS BARYON +-----+---+---+---+ 1 130 +-----+---+---+---+ 2 130 122 72 +-----+---+---+---+ 3 123 +-----+---+---+---+ 4 120 148 82 +-----+---+---+---+ +-----+---+---+---+ HR SYS BAYRON +-----+---+---+---+ Final 120 148 82 +-----+---+---+---+ +------+ + Stage Arrhythmias +------+ + 1 Regadenoson Injection and Isotope Injection +------+ + Recovery Table: +------+---+---+---+ Stage HR SYS BAYRON +------+---+---+---+ 1 115 +------+---+---+---+ 2 141 144 78 +------+---+---+---+ 3 121 +------+---+---+---+ 4 127 152 82 +------+---+---+---+ Stress Observati (more content not included)... Normal [facility] Heart Perfusion W stress and W radionuclide Chuck 12-12-2023 * * *Final Report* * * DATE OF EXAM: Dec 12 2023 12:50PM [address] CARDIAC PERF STRESS/PHARM / PROCEDURE REASON: Shortness of breath * * * * Physician Interpretation * * * * PATIENT: Name: MR. TAZ JOHNSON Age: 88 years Gender: M CONCLUSIONS: 1. [...] later. See administered radiotracer and doses below. [facility] Date of service: 12/12/2023 7:52:14 AM [...] Final * * * Stress ECG Report: [facility] Date of service: 12/12/2023 7:52:14 AM Ordering physician: ANALISA NICOLE digital strategy specialist: Evelio Jack RN Interpreting physician: Ilan Mata MD Patient name: MR. TAZ JOHNSON Age: 88 years Gender: M Height: 180.34 [...] 148/82 mmHg. The double product achieved was [id number]. Medications: Last Used METOPROLOL 2 Days Resting ECG: Atrial Fib/Flutter, Complete RBBB and Rare PVCs (<3/Min) Symptoms at rest: No symptoms Pharamcologic Protocol: Regadenoson Stress Exercise Table: +-----+---+---+---+ Stage HR SYS BAYRON +-----+---+---+---+ 1 130 +-----+---+---+---+ 2 130 122 72 +-----+---+---+---+ 3 123 +-----+---+---+---+ 4 120 148 82 +-----+---+---+---+ +-----+---+---+---+ HR SYS BAYRON +-----+---+---+---+ Final 120 148 82 +-----+---+---+---+ +------+ + Stage Arrhythmias (more content not included)... DIVISION OF RADIOLOGY Provider, [facility] - 12/12/2023 * * *Final Report* * * DATE OF EXAM: Dec 12 2023 12:50PM MAHOGANY Castellanos6 - RONDA CARDIAC PERF STRESS/PHARM / PROCEDURE REASON: Shortness of breath * * * * Physician Interpretation * * * * PATIENT: Name: MR. TAZ JOHNSON Age: 88 years Gender: M CONCLUSIONS: 1. [...] later. See administered radiotracer and doses below. [facility] Date of service: 12/12/2023 7:52:14 AM [...] Final * * * Stress ECG Report: [facility] Date of service: 12/12/2023 7:52:14 AM Ordering physician: ANALISA NICOLE digital strategy specialist: Evelio Jack RN Interpreting physician: Ilan Mata MD Patient name: MR. TAZ JOHNSON Age: 88 years Gender: M Height: 180.34 [...] 148/82 mmHg. The double product achieved was 10932. Medications: Last Used METOPROLOL 2 Days Resting ECG: Atrial Fib/Flutter, Complete RBBB and Rare PVCs (<3/Min) Symptoms at rest: No symptoms Pharamcologic Protocol: Regadenoson Stress Exercise Table: +-----+---+---+---+ Stage HR SYS BAYRON +-----+---+---+---+ 1 130 +-----+---+---+---+ 2 130 122 72 +-----+---+---+---+ 3 123 +-----+---+---+---+ 4 120 148 82 +-----+---+---+---+ +-----+---+---+---+ HR SYS BAYRON +-----+---+---+---+ Final 120 148 82 +-----+---+---+---+ +------+ + Stage Arrhythmias +------+ + 1 Regadenoson Injection and Isotope Injection +------+ + Recovery Table: +------+---+---+---+ Stage HR SYS BAYRON +------+---+---+---+ 1 115 (more content not included)... [facility] Radiology Study observation (narrative) [facility] [place] Heart Perfusion W stress and W radionuclide IVOrdered By: Ccf Provider on 12-12-2023 [facility] Catie 12-06-2023 ESTIVENN Telephone (FAMPWS) -- TAZ JOHNSON ([id number]) 1935 M Date Time Provider Department 12/06/23 DIPAK AGUILAR During your visit today, we recorded the following information about you: Dipak Aguilar DO 12/06/2023 9:42 AM Signed Please inform patient that his iron levels are normal DO Whitley Baeza, Jair Swo MA 12/06/2023 10:38 AM Signed Patient active MyChart. Patient notified via [employer] message. Jair Ziegler MA Allergies As of Date: 12/06/2023 Noted Allergy Reaction CYPRESS 09/22/2010 14 - Other: See Comments Comments: sneezing,runny nose CEDAR 08/17/2010 3 - Cough Comments: also [place] with same reaction MOLD 08/17/2010 3 - Cough Date Reviewed: 12/05/2023 Reviewed by: Lavern Blakely RPFT - Fully Assessed Prescriptions as [...] Status:Closed by JAIR ZIEGLER on 12/06/23 Normal [facility] CBC W Auto Differential pane l (Bld)on 12-05-2023 Basophils (Bld) [#/Vol] 0.11 10*3/uL High <0.11 [facility] Comment on above: Order Comment: Speci men Type: BLOOD SPECIMENOrdering Facility: [facility] Address: [address] [place] [address] Performed By: #### 5 7021-8 ####[facility] [id number] [place] [address] [place] Basophils/100 WBC (Bld) 1.1 % Normal [facility] Comment on above: Order Comment: Speci men Type: BLOOD SPECIMENOrdering Facility: [facility] Address: [address] [place] [address] Performed By: #### 5 7021-8 ####[facility] [id number] [place] [address] [place] Differential cell count method Nom (Bld) Auto Normal [facility] Comment on above: Order Comment: Speci men Type: BLOOD SPECIMENOrdering Facility: [facility] Address: [address] [place] [address] Performed By: #### 5 7021-8 ####[facility] [id number] [place] [address] [place] Eosinophils (Bld) [#/Vol] 0.60 10*3/uL High <0.46 [facility] Comment on above: Order Comment: Speci men Type: BLOOD SPECIMENOrdering Facility: [facility] Address: [address] [place] [address] Performed By: #### 5 7021-8 ####[facility] [id number] [place] [address] [place] Eosinophils/100 WBC (Bld) 5.8 % Normal [facility] Comment on above: Order Comment: Speci men Type: BLOOD SPECIMENOrdering Facility: [facility] Address: [address] [place] [address] Performed By: #### 5 7021-8 ####[facility] [id number] [place] [address] [place] Erythrocyte distribution width (RBC) [Ratio] 14.0 % Normal 11.5-15.0 [facility] Comment on above: Order Comment: Speci men Type: BLOOD SPECIMENOrdering Facility: [facility] Address: [address] [place] [address] Performed By: #### 5 7021-8 ####[facility] TAMIKA [id number] [place] [address] [place] Hematocrit (Bld) [Volume fraction] 49.8 % Normal 39.0-51.0 [facility] Comment on above: Order Comment: Speci men Type: BLOOD SPECIMENOrdering Facility: [facility] Address: [address] [place] [address] Performed By: #### 5 7021-8 ####[facility]ATH[facility]ER[facility] [id number] [place] [address] [place] Hemoglobin (Bld) [Mass/Vol] 17.2 g/dL High 13.0-17.0 [facility] Comment on above: Order Comment: Speci men Type: BLOOD SPECIMENOrdering Facility: [facility] Address: [address] [place] [address] Performed By: #### 5 7021-8 ####[facility]ATHENA [id number] [place] [address] [place] Immature granulocytes (Bld) [#/Vol] 0.16 10*3/uL High <0.10 [facility] Comment on above: Order Comment: Speci men Type: BLOOD SPECIMENOrdering Facility: [facility] Address: [address] [place] [address] Performed By: #### 5 7021-8 ####[facility]ERNCL[facility] [id number] [place] [address] [place] Immature granulocytes/100 WBC (Bld) 1.5 % Normal [facility] Comment on above: Order Comment: Speci men Type: BLOOD SPECIMENOrdering Facility: [facility] Address: [address] [place] [address] Performed By: #### 5 7021-8 ####[facility]OSPITALWNCLIA [id number] [place] [address] [place] Lymphocytes (Bld) [#/Vol] 1.87 10*3/uL Normal 1.00-4.00 [facility] Comment on above: Order Comment: Speci men Type: BLOOD SPECIMENOrdering Facility: [facility] Address: [address] [place] [address] Performed By: #### 5 7021-8 ####[facility] [id number] [place] [address] [place] Lymphocytes/100 WBC (Bld) 18.0 % Normal [facility] Comment on above: Order Comment: Speci men Type: BLOOD SPECIMENOrdering Facility: [facility] Address: [address] [place] [address] Performed By: #### 5 7021-8 ####[facility] [id number] [place] [address] [place] MCH (RBC) [Entitic mass] 30.4 pg Normal 26.0-34.0 [facility] Comment on above: Order Comment: Speci men Type: BLOOD SPECIMENOrdering Facility: [facility] Address: [address] [place], [place] [address] Performed By: #### 5 7021-8 ####[facility] [id number] [place] [address] [place] MCHC (RBC) [Mass/Vol] 34.5 g/dL Normal 30.5-36.0 [facility] Comment on above: Order Comment: Speci men Type: BLOOD SPECIMENOrdering Facility: [facility] Address: [address] [place], [place] [address] Performed By: #### 5 7021-8 ####[facility]ERNCLI [id number] [place] [address] [place] MCV (RBC) [Entitic vol] 88.0 fL Normal 80.0-100.0 [facility] Comment on above: Order Comment: Speci men Type: BLOOD SPECIMENOrdering Facility: [facility] Address: [address] [place] [address] Performed By: #### 5 7021-8 ####[facility] [id number] [place] [address] [place] Monocytes (Bld) [#/Vol] 0.87 10*3/uL High <0.87 [facility] Comment on above: Order Comment: Speci men Type: BLOOD SPECIMENOrdering Facility: [facility] Address: [address] [place] [address] Performed By: #### 5 7021-8 ####[facility] [id number] [place] [address] [place] Monocytes/100 WBC (Bld) 8.4 % Normal [facility] Comment on above: Order Comment: Speci men Type: BLOOD SPECIMENOrdering Facility: [facility] Address: [address] [place] [address] Performed By: #### 5 7021-8 ####[facility] [id number] [place] [address] [place] Neutrophils (Bld) [#/Vol] 6.77 10*3/uL Normal 1.45-7.50 [facility] Comment on above: Order Comment: Speci men Type: BLOOD SPECIMENOrdering Facility: [facility] Address: [address] [place] [address] Performed By: #### 5 7021-8 ####[facility]ERNCL[facility] [id number] [place] [address] [place] Neutrophils/100 WBC (Bld) 65.2 % Normal [facility] Comment on above: Order Comment: Speci men Type: BLOOD SPECIMENOrdering Facility: [facility] Address: [address] [place] [address] Performed By: #### 5 7021-8 ####[facility] TAMIKA [id number] [place] [address] [place] Nucleated RBC (Bld) [#/Vol] 10*3/uL Normal <0.01 [facility] Comment on above: Order Comment: Speci men Type: BLOOD SPECIMENOrdering Facility: [facility] Address: [address] [place] [address] Performed By: #### 5 7021-8 ####[facility] CENTERCURTIS [id number] [place] [address] [place] Nucleated RBC/100 WBC (Bld) [Ratio] 0.0 /100 WBC Normal [facility] Comment on above: Order Comment: Speci men Type: BLOOD SPECIMENOrdering Facility: [facility] Address: [address] [place] [address] Performed By: #### 5 7021-8 ####[facility] CENTERNCJAIMIEA [id number] [place] [address] [place] Platelet mean volume (Bld) [Entitic vol] 9.7 fL Normal 9.0-12.7 [facility] Comment on above: Order Comment: Speci men Type: BLOOD SPECIMENOrdering Facility: [facility] Address: [address] [place] [address] Performed By: #### 5 7021-8 ####[facility]ENTERNCLIA [id number] [place] [address] [place] Platelets (Bld) [#/Vol] 226 10*3/uL Normal 150-400 [facility] Comment on above: Order Comment: Speci men Type: BLOOD SPECIMENOrdering Facility: [facility] Address: [address] [place] [address] Performed By: #### 5 7021-8 ####[facility] HOSPITALWNCLIA [id number] [place] [address] [place] RBC (Bld) [#/Vol] 5.66 10*6/uL Normal 4.20-6.00 [facility] Comment on above: Order Comment: Speci men Type: BLOOD SPECIMENOrdering Facility: [facility] Address: [address] [place], [place] [address] Performed By: #### 5 7021-8 ####[facility]ENTERNCLIA [id number] [place] [address] [place] WBC (Bld) [#/Vol] 10.38 10*3/uL Normal 3.70-11.00 [facility] Comment on above: Order Comment: Speci men Type: BLOOD SPECIMENOrdering Facility: [facility] Address: [address] [place] [address] Performed By: #### 5 7021-8 ####[facility] [id number] [place] [address] [place] [address] CHEST WO IVCONon 12-05-19 CT CHEST WO IVCON * * *Final Report* * * DATE OF EXAM: Dec 05 2023 11:51AM [facility] 0541 - CT CHEST WO IVCON [...] Recommendation: Consult to Lung Nodule [facility] - [id number] Time Frame: at the discretion of the clinical team. Comments: Follow-up for this incidentally detected lung nodule with PET/CT or Biopsy within 4 weeks, or Chest CT exam in 3 months is recommended. --END OF FINDING-- Junior Qa Analyst: BLANK Transcribe Date/Time: Dec 12 2023 10:45A Dictated by : ARLIN MILAN MD This examination was interpreted and the report reviewed and electronically signed by: ARLIN MILAN MD on Dec 12 2023 10:59AM EST [id number] [id number] Invalid Interpretation Code [facility] Iron and Iron binding capaci ty panelon 12-05-2023 Iron [Mass/Vol] 86 ug/dL Normal 41-186 [facility] Comment on above: Order Comment: Speci men Type: BLOOD SPECIMENOrdering Facility: [facility] Address: [address] [id number] Performed By: #### 5 0190-8 ####[facility] LABCLIA [id number] [place] [id number] [place] Iron binding capacity [Mass/Vol] 359 ug/dL Normal 232-386 [facility] Comment on above: Order Comment: Speci men Type: BLOOD SPECIMENOrdering Facility: [facility] Address: [address] [place], [place] [address] Performed By: #### 5 0190-8 ####[facility] LABCLIA [id number] [place] [id number] [place] Iron/TIBC [Molar ratio] 24.0 % Normal 15.0-57.0 [facility] Comment on above: Order Comment: Speci men Type: BLOOD SPECIMENOrdering Facility: [facility] Address: [address] [place] [address] Performed By: #### 5 0190-8 ####[facility] LABCLIA [id number] [address] [place] No Panel Informationon 12-04 Replaced by [facility] [address] [place] [address] Test Date: 2023-12-05 Pat Name: TAZ JOHNSON Department: Room: Gender: Male Voip Technician: : 1935 Requested By: Order Number: [id number] Reading MD: Yamile Bowens MD Interpretive Statements [...] 15:57:36 EDT by Yamile Bowens MD ID: [id number] Name: TAZ JOHNSON Race: White Ht: 71.81 in Wt: 202.00 lbs Age: 88 Gender: Male : 1935 Dx: Wheezing Smoking Hx: Non-smoker Doctor: ELISA GARCIA Test Date: 12/05/2023 Site: Tech: Lavern Blkaely PRE-BRONCH POST-BRONCH Pre LLN Pred ULN %Pred [...] 0.48 -3 FIVC (L) 3.02 2.88 -4 KLG90-87 (L/sec) 1.43 0.63 1.86 3.74 76 1.74 [...] for lung volumes met. PULMONARY FUNCTION LAB [facility] SPIROMETRY - BASELINE AND PO ST GUILLERMOmichael 12-05-2023 ERV BOX (L) 0.62 L [facility] ERV PREDICTED (L) 1.30 L/S [facility] FEF25% POST (L/S) 5.94 L[facility] FEF25% PRE (L/S) 5.73 L[facility] KXM97-73% LLN (L/S) 0.63 L/S [facility] IWF81-09% POST (L/S) 1.74 L/S [facility] XIQ32-76% PRE (L/S) 1.43 L[facility] OIN71-63% PREDICTED (L/S) 1.86 L/S [facility] FEF75% LLN (L/S) 0.14 L[facility]S [facility] FEF75% POST (L/S) 0.58 L[facility] FEF[facility]% PRE (L/S0 0.47 L/S [facility] FEF75% PREDICTED (L/S) 0.43 L/S [facility] FEF75% ULN (L/S) 1.34 L/S [facility] FET POST (S) 10.56 S [facility] FET PRE (S) 9.39 S [facility] FEV1 LLN (L) 1.99 L [facility] FEV1 PRE (L) 2.33 L [facility] FEV1 PREDICTED (L) 2.78 L [facility] FEV1 ULN (L) 3.53 L [facility] FEV1/FVC LLN (%) 59 % [facility] FEV1/FVC POST (%) 71 % [facility] FEV1/FVC PRE (%) 70 % [facility] FEV1/FVC PREDICTED (%) 74 % [facility] FEV1_POST (L) 2.44 L [facility] FRC Box (L) 3.71 L [facility] FVC LLN (L) 2.85 L [facility] FVC POST (L) 3.44 L [facility] FVC PRE (L) 3.34 L [facility] FVC PREDICTED (L) 3.89 L [facility] FVC ULN (L) 4.96 L [facility] IC BOX (L) 2.43 L [facility] IC PREDICTED (L) 2.60 L/S [facility] PEF LLN (L/S) 4.18 L/S [facility] PEF POST (L/S) 6.41 L/S [facility] PEF PRE (L/S) 5.95 L/S [facility] PEF ULN (L/S) 9.06 L/S [facility] RV Box (L) 3.09 L [facility] RV Box PREDICTED (L) 2.91 L [facility] RV/TLC Box (%) 50 % [facility] RV/TLC Box PREDICTED (%) 41 % [facility] SVC LLN (L) 2.85 L/S [facility] SVC PREDICTED (L) 3.89 L/S [facility] SVC ULN (L) 4.96 L/S [facility] TLC Box (L) 6.16 L [facility] TLC Box PREDICTED (L) 7.45 L [facility] VC (L) BOX 3.28 L [facility] CNOVon 11-29-2023 [facility] TAZ [facility]OHNSON ([id number]) 1935 M Date Time Provider Department 11/29/23 7:00 AM ELISA GARCIA During your visit today, we recorded the following information about you: Pulse Respiration Blood pressure Weight 78/minute 16/minute 126/78 92.1 kg Elisa Garcia APRN.CNP 11/29/2023 12:42 PM Signed Taz Johnson is a 88 year old male here [...] history review Reviewed and updated problem list, medical/surgical/family/so cial history, medications, and allergies. Opioid use review [...] information provided - Personalized prevention plan provided Elisa Garcia APRN.CNP 11/29/2023 12:42 PM Signed Chief Complaint Patient presents with: Medicare Wellness Exam HPI Taz Johnson is a 88 year old male who [...] his doctor during the winter months in [place]. States "they always say everything is fine." Is concerned because his SOB seems to [...] GERD (gastroesophageal reflux disease) Melanoma (HCC) 1991 [place] [facility] Nurse Persistent atrial fibrillation (HCC) 10/11/2019 Admitted 09/05/2019 [facility]. Follow[facility]. Previous Surgical History PAST SURGICAL HISTORY Procedure [...] 2011 L Rotator cuff repair - bilateral [facility] PAST SURGICAL HISTORY OF plastic surgery for (more content not included)... Normal [facility] XR HIP BILATERAL 5V PEL/AP/L AT EACH HIPon 11-24-2023 IMPRESSION: No acute abnormality Junior Qa Analyst: BLANK Transcribe Date/Time: Nov 24 2023 6:25P Dictated by : MARIANA CARABALLO MD This examination was interpreted and the report reviewed and electronically signed by: MARIANA CARABALLO MD on Nov 24 2023 6:25PM [facility] RADIOLOGY * * *Final Report* * * DATE OF EXAM: Nov 23 2023 7:45AM YIMI [id number] - XR HIP KELLEY 5V PEL+ AP/LAT EA HIP / PROCEDURE REASON: multiple diagnoses * * * * Physician Interpretation * * * * PROCEDURE: Pelvis and bilateral hips INDICATION: Bilateral hip pain TECHNIQUE: XR HIP KELLEY 5V PEL+ AP/LAT EA HIP COMPARISON: None FINDINGS: 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 No periprosthetic lucency or fracture. Sacroiliac joints and symphysis pubis are maintained. 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 No periprosthetic lucency or fracture. Sacroiliac joints and symphysis pubis are maintained. IMPRESSION IMPRESSION: No acute abnormality Junior Qa Analyst: [facility] Transcribe Date/Time: Nov 24 2023 6:25P Dictated by : MARIANA CARABALLO MD This examination was interpreted and the report reviewed and electronically signed by: MARIANA CARABALLO MD on Nov 24 2023 6:25PM EST [facility] XR Knee - right 4 Viewson IMPRESSION: Interval TKA. Acute abnormality Junior Qa Analyst: PSCB Transcribe Date/Time: Nov 24 2023 6:24P Dictated by : MARIANA CARABALLO MD This examination was interpreted and the report reviewed and electronically signed by: MARIANA CARABALLO MD on Nov 24 2023 6:25PM EST [facility] * * *Final Report* * * DATE OF EXAM: Nov 23 2023 7:45AM YMII 5203 - XR KNEE 4V AP/PA BOTH+LAT/TYRA [...] No joint effusion or soft tissue swelling. [facility] Provider, [facility] - 11/24/2023 * * *Final Report* * [...] swelling. IMPRESSION IMPRESSION: Interval TKA. Acute abnormality Junior Qa Analyst: [facility] Transcribe Date/Time: Nov 24 2023 6:24P Dictated by : MARIANA CARABALLO MD This examination was interpreted and the report reviewed and electronically signed by: MARIANA CARABALLO MD on Nov 24 2023 6:25PM EST [facility] XR Knee - right 4 ViewsOrder ed By: [facility]cf Provider on 11-24-2023 [facility] XR Lumbar spine AP and Later margie 11-24-2023 IMPRESSION: Degenera tive changes Junior Qa Analyst: PSC Transcribe Date/Time: Nov 24 2023 9:37P Dictated by : MARIANA CARABALLO MD This examination was interpreted and the report reviewed and electronically signed by: MARIANA CARABALLO MD on Nov 24 2023 9:38PM EST [facility] * * *Final Report* * * [...] SI joint. Partially visualized bilateral hip arthroplasties. [facility] Provider, Edgardo clay [place] - 11/24/2023 * * *Final Report* * [...] bilateral hip arthroplasties. IMPRESSION IMPRESSION: Degenerative changes Junior Qa Analyst: BLANK Transcribe Date/Time: Nov 24 2023 9:37P Dictated by : MARIANA CARABALLO MD This examination was interpreted and the report reviewed and electronically signed by: MARIANA CARABALLO MD on Nov 24 2023 9:38PM [facility] CNOVon 11-23-2023 CNOV Office Visit (ORMDNA ) -- TAZ JOHNSON ([id number]) 1935 M Date Time Provider Department 11/23/23 8:40 AM JEFFREY HDZ ORCORBY During your visit today, we recorded the following information about you: Jeffrey Hdz MD 11/23/2023 8:39 AM Signed CONSULT ORTHOPAEDIC: [...] (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 Taz Johnson has had progressive problems with the hip(s) multiple times a day over the past 2 year(s) interfering with activities which include rising from a sitting position, standing for prolonged per (more content not included)... 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 No periprosthetic lucency or fracture. Sacroiliac joints and symphysis pubis are maintained. IMPRESSION: No acute abnormality Junior Qa Analyst: [facility] Transcribe Date/Time: Nov 24 2023 6:25P Dictated by : MARIANA CARABALLO MD This examination was interpreted and the report reviewed and electronically signed by: MARIANA CARABALLO MD on Nov 24 2023 6:25PM EST [id number] [facility] XR KNEE 4V AP/PA BOTH+LAT/ME R RTon [...] tissue swelling. IMPRESSION: Interval TKA. Acute abnormality Junior Qa Analyst: [facility] Transcribe Date/Time: Nov 24 2023 6:24P Dictated by : MARIANA CARABALLO MD This examination was interpreted and the report reviewed and electronically signed by: MARIANA CARABALLO MD on Nov 24 2023 6:25PM EST [id number] [facility] XR LUMBAR 2V AP/LATon 2023 XR LUMBAR [...] visualized bilateral hip arthroplasties. IMPRESSION: Degenerative changes Junior Qa Analyst: BLANK Transcribe Date/Time: Nov 24 2023 9:37P Dictated by : MARIANA CARABALLO MD This examination was interpreted and the report reviewed and electronically signed by: MARIANA CARABALLO MD on Nov 24 2023 9:38PM EST [id number] Normal [facility] XR Lumbar spine AP and Later margie 11-23-2023 Radiology Study observation (narrative) [facility] 25(OH)D3 SerPl-mCncon 2023 25-hydroxyvitamin D3 [Mass/Vol] 43.4 ng/mL Normal 31.0-80.0 [facility] Comment on above: Order Comment: Jayson moffett Type: BLOOD SPECIMENOrdering Facility: [facility] Address: [address] [place] [address] Result Comment: Clas sification of 25 OH Vitamin D status: Deficiency/Insufficiency: < or = 30 ng/ml. Sufficiency/Optimal Levels: 31-80 ng/mL Toxicity: > 100 ng/mL. Test performed by chemiluminescent immunoassay. Performed By: #### 1 989-3 ####[facility] LABIA [id number] [place] [address] [place] CBC W Auto Differential pane l (Bld)on 11-04-2023 Basophils (Bld) [#/Vol] 0.09 10*3/uL Normal <0.11 [facility] Comment on above: Order Comment: Jayson moffett Type: BLOOD SPECIMENOrdering Facility: [facility] Address: [address] [place] [address] Performed By: #### 5 7021-8 ####[facility] LABIA [id number] [place] [address] [place] Basophils/100 WBC (Bld) 0.9 % Normal [facility] Comment on above: Order Comment: Jayson moffett Type: BLOOD SPECIMENOrdering Facility: [facility] Address: [address] [place] [address] Performed By: #### 5 7021-8 ####[facility] LABCLIA [id number] [place] [address] [place] Differential cell count method Nom (Bld) Auto Normal [facility] Comment on above: Order Comment: Speci men Type: BLOOD SPECIMENOrdering Facility: [facility] Address: [address] [place] [address] Performed By: #### 5 7021-8 ####[facility] LABCLIA [id number] [place] [address] [place] Eosinophils (Bld) [#/Vol] 0.34 10*3/uL Normal <0.46 [facility] Comment on above: Order Comment: Speci men Type: BLOOD SPECIMENOrdering Facility: [facility] Address: [address] [place] [address] Performed By: #### 5 7021-8 ####[facility] LABCLIA [id number] [place] [address] [place] Eosinophils/100 WBC (Bld) 3.6 % Normal [facility] Comment on above: Order Comment: Speci men Type: BLOOD SPECIMENOrdering Facility: [facility] Address: [address] [place] [address] Performed By: #### 5 7021-8 ####[facility] LABCLIA [id number] [place] [address] [place] Erythrocyte distribution width (RBC) [Ratio] 14.6 % Normal 11.5-15.0 [facility] Comment on above: Order Comment: Speci men Type: BLOOD SPECIMENOrdering Facility: [facility] Address: [address] [place] [address] Performed By: #### 5 7021-8 ####[facility] LABCLIA [id number] [address] [id number] [address] [place] Hematocrit (Bld) [Volume fraction] 49.9 % Normal 39.0-51.0 [facility] Comment on above: Order Comment: Speci men Type: BLOOD SPECIMENOrdering Facility: [facility] Address: [address] [place] [address] Performed By: #### 5 7021-8 ####[facility] LABCLIA [id number] [place] [address] [place] Hemoglobin (Bld) [Mass/Vol] 16.7 g/dL Normal 13.0-17.0 [facility] Comment on above: Order Comment: Speci men Type: BLOOD SPECIMENOrdering Facility: [facility] Address: [address] [place] [address] Performed By: #### 5 7021-8 ####[facility] LABCLIA [id number] [place] [address] [place] Immature granulocytes (Bld) [#/Vol] 0.17 10*3/uL High <0.10 [facility] Comment on above: Order Comment: Speci men Type: BLOOD SPECIMENOrdering Facility: [facility] Address: [address] [place] [address] Performed By: #### 5 7021-8 ####[facility] LABCLIA [id number] [place] [address] [place] Immature granulocytes/100 WBC (Bld) 1.8 % Normal [facility] Comment on above: Order Comment: Speci men Type: BLOOD SPECIMENOrdering Facility: [facility] Address: [address] [place] [address] Performed By: #### 5 7021-8 ####[facility] LABCLIA [id number] [place] [address] [place] Lymphocytes (Bld) [#/Vol] 1.57 10*3/uL Normal 1.00-4.00 [facility] Comment on above: Order Comment: Speci men Type: BLOOD SPECIMENOrdering Facility: [facility] Address: [address] [place] [address] Performed By: #### 5 7021-8 ####[facility] LABCLIA [id number] [place] [address] [place] Lymphocytes/100 WBC (Bld) 16.6 % Normal [facility] Comment on above: Order Comment: Speci men Type: BLOOD SPECIMENOrdering Facility: [facility] Address: [address] [place] [address] Performed By: #### 5 7021-8 ####[facility] LABCLIA [id number] [place] [address] [place] MCH (RBC) [Entitic mass] 30.8 pg Normal 26.0-34.0 [facility] Comment on above: Order Comment: Speci men Type: BLOOD SPECIMENOrdering Facility: [facility] Address: [address] [place] [address] Performed By: #### 5 7021-8 ####[facility] LABIA [id number] [place] [address] [place] MCHC (RBC) [Mass/Vol] 33.5 g/dL Normal 30.5-36.0 [facility] Comment on above: Order Comment: Speci men Type: BLOOD SPECIMENOrdering Facility: [facility] Address: [address] [place] [address] Performed By: #### 5 7021-8 ####[facility] LABCLIA [id number] [place] [address] [place] MCV (RBC) [Entitic vol] 92.1 fL Normal 80.0-100.0 [facility] Comment on above: Order Comment: Speci men Type: BLOOD SPECIMENOrdering Facility: [facility] Address: [address] [place] [address] Performed By: #### 5 7021-8 ####[facility] LABCLIA [id number] [place] [address] [place] Monocytes (Bld) [#/Vol] 0.91 10*3/uL High <0.87 [facility] Comment on above: Order Comment: Speci men Type: BLOOD SPECIMENOrdering Facility: [facility] Address: [address] [place] [address] Performed By: #### 5 7021-8 ####[facility] LABCLIA [id number] [place] [address] [place] Monocytes/100 WBC (Bld) 9.6 % Normal [facility] Comment on above: Order Comment: Speci men Type: BLOOD SPECIMENOrdering Facility: [facility] Address: [address] [place] [address] Performed By: #### 5 7021-8 ####[facility] LABCLIA [id number] [place] [address] [place] Neutrophils (Bld) [#/Vol] 6.40 10*3/uL Normal 1.45-7.50 [facility] Comment on above: Order Comment: Speci men Type: BLOOD SPECIMENOrdering Facility: [facility] Address: [address] [place] [address] Performed By: #### 5 7021-8 ####[facility] LABCLIA [id number] [place] [address] [place] Neutrophils/100 WBC (Bld) 67.5 % Normal [facility] Comment on above: Order Comment: Speci men Type: BLOOD SPECIMENOrdering Facility: [facility] Address: [address] [place] [address] Performed By: #### 5 7021-8 ####[facility] LABCLIA [id number] [place] [address] [place] Nucleated RBC (Bld) [#/Vol] 10*3/uL Normal <0.01 [facility] Comment on above: Order Comment: Speci men Type: BLOOD SPECIMENOrdering Facility: [facility] Address: [address] [place] [address] Performed By: #### 5 7021-8 ####[facility] LABCLIA [id number] [place] [address] [place] Nucleated RBC/100 WBC (Bld) [Ratio] 0.0 /100 WBC Normal [facility] Comment on above: Order Comment: Speci men Type: BLOOD SPECIMENOrdering Facility: [facility] Address: [address] [place] [address] Performed By: #### 5 7021-8 ####[facility] LABCLIA [id number] [place] [address] [place] Platelet mean volume (Bld) [Entitic vol] 10.5 fL Normal 9.0-12.7 [facility] Comment on above: Order Comment: Speci men Type: BLOOD SPECIMENOrdering Facility: [facility] Address: [address] [place] [address] Performed By: #### 5 7021-8 ####[facility] LABCLIA [id number] [place] [address] [place] Platelets (Bld) [#/Vol] 249 10*3/uL Normal 150-400 [facility] Comment on above: Order Comment: Speci men Type: BLOOD SPECIMENOrdering Facility: [facility] Address: [address] [place] [address] Performed By: #### 5 7021-8 ####[facility] LABCLIA [id number] [place] [address] [place] RBC (Bld) [#/Vol] 5.42 10*6/uL Normal 4.20-6.00 [facility] Comment on above: Order Comment: Speci men Type: BLOOD SPECIMENOrdering Facility: [facility] Address: [address] [place] [address] Performed By: #### 5 7021-8 ####[facility] LABCLIA [id number] [address] [address] [place] WBC (Bld) [#/Vol] 9.48 10*3/uL Normal 3.70-11.00 [facility] Comment on above: Order Comment: Speci men Type: BLOOD SPECIMENOrdering Facility: [facility] Address: [address] [place] [address] Performed By: #### 5 7021-8 ####[facility] LABCLIA [id number] [place] [address] [place] [facility] Comprehensive metabolic 2000 panelon 11-04-2023 Albumin [Mass/Vol] 4.1 g/dL Normal 3.9-4.9 [facility] Comment on above: Order Comment: Speci men Type: BLOOD SPECIMENOrdering Facility: [facility] Address: [address] [place] [address] Performed By: #### 2 4323-8, 2131-10 ####[facility] LABIA [id number] [place] [address] [place] ALP [Catalytic activity/Vol] 90 U/L Normal 38-113 [facility] Comment on above: Order Comment: Speci men Type: BLOOD SPECIMENOrdering Facility: [facility] Address: [address] [place] [address] Performed By: #### 2 4323-8, 2131-10 ####[facility] LABCLIA [id number] [place] [address] [place] ALT [Catalytic activity/Vol] 23 U/L Normal 10-54 [facility] Comment on above: Order Comment: Speci men Type: BLOOD SPECIMENOrdering Facility: [facility] Address: [address] [place] [address] Performed By: #### 2 4323-8, 2131-10 ####[facility] LABIA [id number] [place] [address] [place] Anion gap [Moles/Vol] 9 mmol/L Normal 8-15 [facility] Comment on above: Order Comment: Speci men Type: BLOOD SPECIMENOrdering Facility: [facility] Address: [address] [place] [address] Performed By: #### 2 4322-09, 2131-10 ####[facility] LABCLIA [id number] [place] [address] [place] AST [Catalytic activity/Vol] 30 U/L Normal 14-40 [facility] Comment on above: Order Comment: Speci men Type: BLOOD SPECIMENOrdering Facility: [facility] Address: [address] [place] [address] Performed By: #### 2 4322-09, 2131-10 ####[facility] LABCLIA [id number] [place] [address] [place] Bilirubin [Mass/Vol] 1.0 mg/dL Normal 0.2-1.3 [facility] Comment on above: Order Comment: Speci men Type: BLOOD SPECIMENOrdering Facility: [facility] Address: [address] [place] [address] Performed By: #### 2 4322-09, 2131-10 ####[facility] LABCLIA [id number] [place] [address] [place] Calcium [Mass/Vol] 10.5 mg/dL High 8.5-10.2 [facility] Comment on above: Order Comment: Speci men Type: BLOOD SPECIMENOrdering Facility: [facility] Address: [address] [place], [place] [address] Performed By: #### 2 4322-09, 2131-10 ####[facility] LABCLIA [id number] [place] [address] [place] Chloride [Moles/Vol] 101 mmol/L Normal 98-107 [facility] Comment on above: Order Comment: Speci men Type: BLOOD SPECIMENOrdering Facility: [facility] Address: [address] [place] [address] Performed By: #### 2 43238, 2131-10 ####[facility] LABCLIA [id number] [place] [address] [place] CO2 [Moles/Vol] 29 mmol/L Normal 22-30 [facility] Comment on above: Order Comment: Speci men Type: BLOOD SPECIMENOrdering Facility: [facility] Address: [address] [place] [address] Performed By: #### 2 4328, 2131-10 ####[facility] LABCLIA [id number] [place] [address] [place] Creatinine [Mass/Vol] 1.49 mg/dL High 0.73-1.22 [facility] Comment on above: Order Comment: Speci men Type: BLOOD SPECIMENOrdering Facility: [facility] Address: [address] [place] [address] Performed By: #### 2 4328, 2131-10 ####[facility] LABCLIA [id number] [place] [address] [place] Creatinine and Glomerular filtration rate.predicted panel (S/P/Bld) 45 mL/min/1.73m??? Low >=60 [facility] Comment on above: Order Comment: Speci men Type: BLOOD SPECIMENOrdering Facility: [facility] Address: [address] [place] [address] Result Comment: Yani mated Glomerular Filtration Rate [...] GFR. Performed By: #### 2 4323-8, 2131-10 ####[facility] LABCLIA [id number] [place] [address] [place] Glucose [Mass/Vol] 119 mg/dL High 74-99 [facility] Comment on above: Order Comment: Speci men Type: BLOOD SPECIMENOrdering Facility: [facility] Address: [address] [place] [address] Result Comment: The [place] Diabetes Association (ADA) provides guidance for cutoff [...] Standards of Medical Care in Diabetes 2016, [place] [employer]. Diabetes Care. 2016.39(Suppl 1). Performed By: #### 2 43204-28, 2131-10 ####[facility] LABIA [id number] [place] [address] [place] Potassium [Moles/Vol] 4.8 mmol/L Normal 3.7-5.1 [facility] Comment on above: Order Comment: Speci men Type: BLOOD SPECIMENOrdering Facility: [facility] Address: [address] [place] [address] Performed By: #### 2 43204-28, 2131-10 ####[facility] LABCLIA [id number] [place] [address] [place] Protein [Mass/Vol] 6.9 g/dL Normal 6.3-8.0 [facility] Comment on above: Order Comment: Speci men Type: BLOOD SPECIMENOrdering Facility: [facility] Address: [address] [place] [address] Performed By: #### 2 4322-09, 2131-10 ####[facility] LABCLIA [id number] [place] [address] [place] Sodium [Moles/Vol] 139 mmol/L Normal 136-144 [facility] Comment on above: Order Comment: Speci men Type: BLOOD SPECIMENOrdering Facility: [facility] Address: [address] [place] [address] Performed By: #### 2 4323-8, 2131-10 ####[facility] LABIA [id number] [place] [address] [place] Urea nitrogen [Mass/Vol] 20 mg/dL Normal 9-24 [facility] Comment on above: Order Comment: Simoni men Type: BLOOD SPECIMENOrdering Facility: [facility] Address: [address] [place] [address] Performed By: #### 2 4323-8, 2131-10 ####[facility] [id number] [place] [address] [place] HbA1c (Bld)on 11-04-2023 Average glucose Estimated from glycated hemoglobin (Bld) [Mass/Vol] 140 mg/dL Normal [facility] Comment on above: Order Comment: Simoni men Type: BLOOD SPECIMENOrdering Facility: [facility] Address: [address] [place] [address] Result Comment: eAG: (Estimated average glucose) is a calculated value from HgbA1c and is sales support representative of the average blood glucose level in the last 2-3 month period. Performed By: #### 5 5454-3 ####[facility] [id number] [place] [address] [place] HbA1c (Bld) [Mass fraction] 6.5 % High 4.3-5.6 [facility] Comment on above: Order Comment: Simoni men Type: BLOOD SPECIMENOrdering Facility: [facility] Address: [address] [place] [address] Result Comment: [place] Diabetes Association guidelines indicate that patients with HgbA1c in the range 5.7-6.4% are at increased risk for development of diabetes, and intervention by lifestyle modification may be beneficial. HgbA1c greater or equal to 6.5% is considered diagnostic of diabetes. Performed By: #### 5 5454-3 ####[facility] LABCLIA [id number] [address] [address] [place] Lipid 1996 panelon 4 Cholesterol [Mass/Vol] 139 mg/dL Normal <200 [facility] Comment on above: Order Comment: Speci men Type: BLOOD SPECIMENOrdering Facility: [facility] Address: [address] [place] [address] Result Comment: <200 mg/dL, Desirable 200-239 mg/dL, Borderline high >239 mg/dL, High Performed By: #### 2 4331-1, 3023-7, 16741-7, 6-3 ####[facility] LABCLIA [id number] [address] [place] Cholesterol in HDL [Mass/Vol] 34 mg/dL Low >39 [facility] Comment on above: Order Comment: Simoni men Type: BLOOD SPECIMENOrdering Facility: [facility] Address: [address] [place] [address] Result Comment: 40-5 9 mg/dL, Acceptable >59 mg/dL, High: Negative risk factor for coronary heart disease <40 mg/dL, Low: Positive risk factor for coronary heart disease Performed By: #### 2 4331-1, 3023-7, , 6-3 ####[facility] LABCLIA [id number] [place] [address] [place] Cholesterol in LDL [Mass/Vol] 84 mg/dL Normal <100 [facility] Comment on above: Order Comment: Jayson men Type: BLOOD SPECIMENOrdering Facility: [facility] Address: [address] [place] [address] Result Comment: <100 mg/dL, Optimal 100-129 mg/dL, Near optimal/above optimal 130-159 mg/dL, Borderline high 160-189 mg/dL, High >189 mg/dL, Very high Secondary prevention optimal LDL Cholesterol levels are recommended to be < 70 mg/dL Performed By: #### 2 4331-1, 3024-7, 31416-3, 6-3 ####[facility] LABCLIA [id number] [address] [address] [place] Cholesterol in LDL/Cholesterol in HDL [Mass ratio] 2.47 {ratio} Normal <2.54 [facility] Comment on above: Order Comment: Speci men Type: BLOOD SPECIMENOrdering Facility: [facility] Address: [address] [place] [address] Result Comment: Joanne tate: 1. National Cholesterol Education Program ATP III Guideline At-A-Glance Quick Desk Reference: National Heart, Lung, and Blood [place]. National Institutes of Health. 2001: NIH Publication No. 01-3305. 2. An International Atherosclerosis Society position paper: global recommendations for the management of dyslipidemia: executive summary, Atherosclerosis. 2014: 232(2):410-413. Performed By: #### 2 4331-1, 4-7, 44306-7, 3015-3 ####[facility] LABIA [id number] [place] [address] [place] Cholesterol in VLDL [Mass/Vol] 21 mg/dL Normal <30 [facility] Comment on above: Order Comment: Speci men Type: BLOOD SPECIMENOrdering Facility: [facility] Address: [address] [place] [address] Performed By: #### 2 4331-1, 4-7, 11217-8, 6-3 ####[facility] LABIA [id number] [address] [address] [place] Cholesterol non HDL [Mass/Vol] 105 mg/dL Normal <130 [facility] Comment on above: Order Comment: Speci men Type: BLOOD SPECIMENOrdering Facility: [facility] Address: [address] [place] [address] Result Comment: <130 mg/dL, Optimal 130-159 mg/dL, Near optimal/above optimal 160-189 mg/dL, Borderline high 190-219 mg/dL, High >219 mg/dL, Very high Secondary prevention optimal non HDL Cholesterol levels are recommended to be <100 mg/dL Performed By: #### 2 4331-1, 3023-7, , 3015-3 ####[facility] LABCLIA [id number] [address] [address] [place] Cholesterol.total/Chol esterol in HDL [Mass ratio] 4.09 {ratio} Normal <5.10 [facility] Comment on above: Order Comment: Speci men Type: BLOOD SPECIMENOrdering Facility: [facility] Address: [address] [place] [address] Performed By: #### 2 4331-1, 7, , 3015-04 ####[facility] LABCLIA [id number] [place] [address] [place] FASTING TIME 12 hrs Normal [facility] Comment on above: Order Comment: Speci men Type: BLOOD SPECIMENOrdering Facility: [facility] Address: [address] [place] [address] Performed By: #### 2 4331-1, 7, , 3 ####[facility] LABCLIA [id number] [place] [address] [place] Triglyceride [Mass/Vol] 107 mg/dL Normal <150 [facility] Comment on above: Order Comment: Speci men Type: BLOOD SPECIMENOrdering Facility: [facility] Address: [address] [place], [place] [address] Result Comment: <150 mg/dL, Normal 150-199 mg/dL, Borderline high 200-499 mg/dL, High >499 mg/dL, Very high Performed By: #### 2 4331-1, 3023-7, , 3015-3 ####[facility] LABCLIA [id number] [place] [address] [place] Magnesium SerPl-mCncon 11-03 Magnesium [Mass/Vol] 1.9 mg/dL Normal 1.7-2.3 [facility] Comment on above: Order Comment: Speci men Type: BLOOD SPECIMENOrdering Facility: [facility] Address: [address] [place] [address] Performed By: #### 2 4331-1, 3024-7, 83703-5, 6-3 ####[facility] LABCLIA [id number] [place] [address] [place] PSA/PROSTATE SPECIFIC ANTIGE N SCREENINGon 11-04-2023 Prostate specific Ag [Mass/Vol] 0.32 ng/mL Normal <2.60 [facility] Comment on above: Order Comment: Speci men Type: BLOOD SPECIMENOrdering Facility: [facility] Address: [address] [place] [address] Result Comment: Tota l PSA test methodology used is the Electrochemiluminescence Immunoassay by [employer]. Total PSA values by differing methodologies cannot be interchanged. Performed By: #### P SAS1 ####[facility] LABIA [id number] [place] [address] [place] T4 Free SerPl-mCncon 024 Free T4 [Mass/Vol] 1.2 ng/dL Normal 0.9-1.7 [facility] Comment on above: Order Comment: Speci men Type: BLOOD SPECIMENOrdering Facility: [facility] Address: [address] [place] [address] Performed By: #### 2 4331-1, 3024-7, 13484-4, 6-3 ####[facility] LABIA [id number] [place] [id number] [place] TSH SerPl-aCncon 11-04-2023 TSH Qn 3.930 m[IU]/L Normal 0.270-4.200 [facility] Comment on above: Order Comment: Speci men Type: BLOOD SPECIMENOrdering Facility: [facility] Address: [address] [place], [place] [address] Performed By: #### 2 4331-1, 3024-7, 25627-3, 3016-3 ####[facility] LABCLIA [id number] [place] [id number] [facility] OF [place] Vit B12 [facility] 13-2 024 Cobalamin (Vitamin B12) [Mass/Vol] 520 pg/mL Normal 232-1245 [facility] Comment on above: Order Comment: Speci men Type: BLOOD SPECIMENOrdering Facility: [facility] Address: [address] [place] [address] Performed By: #### 2 4323-8, 2132-9 ####[facility] LABCLIA [id number] [address] OF [facility] CNPNeetu [facility] TAZ [facility]OHNSON ([id number]) 1935 M Date Time Provider Department 11/02/23 [facility] During your visit today, we recorded [...] BLOOD COUNT AND DIFFERENTIAL [SQCBCDIF] Order #: [id number] FUTURE THYROID STIMULATING HORMONE [SQTSH] Order #: [id number] FUTURE T4 FREE/FREE THYROXINE [SQFT4] Order #: [id number] FUTURE LIPID PANEL BASIC [SQLIPB] Order #: [id number] FUTURE HEMOGLOBIN A1C [JTMDE2P] Order #: [id number] FUTURE COMPREHENSIVE METABOLIC PANEL [SQCMP] Order #: [id number] FUTURE IRON AND TIBC [SQIRON] Order #: [id number] FUTURE VITAMIN D 25 HYDROXY [SQVITD] Order #: [id number] FUTURE VITAMIN B12 [SQB12] Order #: [id number] FUTURE MAGNESIUM [SQMG1] Order #: [id number] FUTURE PSA/PROSTATE SPECIFIC ANTIGEN SCREENING [SQPSAS1] Order #: [id number] FUTURE Prescriptions as of 11/03/2023 - apixaban [...] 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] 11/16/2021 Encounter Status:Closed by ELISA GARCIA on 11/03/23 [facility] CNOVon 06-24-2023 CNOV Office Visit (AKURFL ) -- TAZ JOHNSON ([id number]) 1935 M Date Time Provider Department 06/24/23 8:30 AM AJ ISSA During your visit today, we recorded the following information about you: Pulse Height 72/minute 1.829 m Aj Issa MD 06/27/2023 8:06 AM Signed ESTABLISHED PATIENT OFFICE VISIT PATIENT INFO: Taz Johnson 88 year old HPI 06/24/2023 CC: cysto [...] hung up He is going back to [place] in a few weeks and he knows to reconnect with urology there if he has problems Could always consult with Dr. Summers or Dr. Yamile Trujillo at [facility] who are stricture specialists and he will [...] also Discussed options and will take to [facility] tomorrow for cystoscopy and urethral [...] shortness of breath We will schedule at [facility] Bladder scan/postvoid residual-80 cc approximate 06/29/2022 CC: marcy Saw me last noted below and had laser TURP Did well afterwards but then having more trouble so underwent TURP in December 2021 in [place] and did well but over the last month slower stream and nocturia 3-4 and moreUrgency Residual urine 79 cc Not on alpha blockers and so we will add Uroxatro (more content not included)... Normal [facility] UA DIP, URINE (POC)on 2023 BILIRUBIN UA (POCT) Negative Negative [facility] CLARITY UA (POCT) Clear [facility] COLOR UA (POCT) Yellow [facility] GLUCOSE UA (POCT) Negative Negative mg/dL [facility] Hemoglobin Ql (U) Large Abnormal Negative [facility] Interpretation and review of laboratory results Abnormal [facility] KETONE UA (POCT) Negative Negative mg/dL [facility] LEUKOCYTES UA (POCT) Small Abnormal Negative [facility] NITRITE UA (POCT) Negative Negative [facility] PH UA (POCT) 6.0 4.5 - 8.0 [facility] Protein Ql (U) Negative Negative mg/dL [facility] SPECIFIC GRAVITY UA (POCT) 1.025 1.005 - 1.030 [facility] UROBILINOGEN UA (POCT) 1.0 Alejandra l E.U./dL [facility] [address] [place] [address], [address] [place] [address] POINT OF CARE [facility] UA DIP, URINE (POC)on 2022 BILIRUBIN UA (POCT) Negative Negative [facility] CLARITY UA (POCT) Clear [facility] COLOR UA (POCT) Yellow [facility] GLUCOSE UA (POCT) Negative Negative mg/dL [facility] Hemoglobin Ql (U) Negative Negative [facility] KETONE [facility]A (POCT) Negative Negative mg/dL [facility] LEUKOCYTES [facility]A (POCT) Negative Negative [facility] NITRITE UA (POCT) Negative [facility] PH UA (POCT) 6.5 4.5 - 8.0 [facility] Protein Ql (U) Negative Negative mg/dL [facility] SPECIFIC GRAVITY UA (POCT) 1.020 1.005 - 1.030 [facility] UROBILINOGEN UA (POCT) 0.2 E.U./dL Alejandra l E.U./dL [facility] UA DIP, URINE (POC)on 2022 BILIRUBIN UA (POCT) Negative Negative [facility] CLARITY UA (POCT) Clear [facility] COLOR UA (POCT) Yellow [facility] GLUCOSE UA (POCT) Negative Negative mg/dL [facility] Hemoglobin Ql (U) Trace-intact Abnormal Negative [facility] KETONE UA (POCT) Negative Negative mg/dL [facility] LEUKOCYTES UA (POCT) Negative Negative [facility] NITRITE UA (POCT) Negative Negative [facility] PH UA (POCT) 6.5 4.5 - 8.0 [facility] Protein Ql (U) Trace Abnormal Negative mg/dL [facility] SPECIFIC GRAVITY UA (POCT) >=1.030 1.005 - 1.030 [facility] UROBILINOGEN UA (POCT) 1.0 E.U./dL Alejandra l E.U./dL [facility] UA DIP, URINE (POC)on 2022 BILIRUBIN UA (POCT) Negative Negative [facility] CLARITY UA (POCT) Clear [facility] COLOR UA (POCT) Yellow [facility] GLUCOSE UA (POCT) Negative Negative mg/dL [facility] HEMOGLOBIN/BLOOD UA (POCT) Negative Negative [facility] KETONE UA (POCT) Negative Negative mg/dL [facility] LEUKOCYTES UA (POCT) Trace Abnormal Negative [facility] NITRITE UA (POCT) Negative [facility] PH UA (POCT) 5.5 4.5 - 8.0 [facility] Protein Ql (U) Negative Negative mg/dL [facility] SPECIFIC GRAVITY UA (POCT) 1.020 1.005 - 1.030 [facility] UROBILINOGEN UA (POCT) 0.2 E.U./dL Alejandra l E.U./dL [facility] No Panel Informationon 10-13 Radiology Study observation (narrative) [facility] XR Chest PA and Lateralon IMPRESSION: Linear indeterminate density at both lung bases. Likely atelectasis or fibrosis. No new significant collapse or consolidation Junior Qa Analyst: [facility] Transcribe Date/Time: Oct 13 2020 10:37A Dictated by : HENRY PEÑA MD This examination was interpreted and the report reviewed and electronically signed by: HENRY PEÑA MD on Oct 13 2020 10:40AM [facility] DIVISION OF RADIOLOGY * * *Final Report* [...] soft tissues: Unremarkable. DIVISION OF RADIOLOGY Provider, [facility] Lobo Anguiano - 10/13/2020 * * *Final Report* [...] fibrosis. No new significant collapse or consolidation Junior Qa Analyst: [facility] Transcribe Date/Time: Oct 13 2020 10:37A Dictated by : HENRY PEÑA MD This examination was interpreted and the report reviewed and electronically signed by: HENRY PEÑA MD on Oct 13 2020 10:40AM EST [facility] XR Knee - right 4 Viewson IMPRESSION: Degenerative changes as described. Junior Qa Analyst: [facility] Transcribe Date/Time: Oct 13 2020 10:38A Dictated [...] joint space narrowing. DIVISION OF RADIOLOGY Provider, [facility] 10/13/2020 * * *Final Report* * [...] narrowing. IMPRESSION IMPRESSION: Degenerative changes as described. Junior Qa Analyst: [facility]SC[facility] Transcribe Date/Time: Oct 13 2020 10:38A Dictated by : JAVAN LOUIS MD This examination was interpreted and the report reviewed and electronically signed by: JAVAN LOUIS MD on Oct 13 2020 10:39AM EST [facility] XR Knee - right 4 ViewsOrder ed By: Ccf Provider on 10-13-2020 [facility] US MSR POST-VOID RESID URINE [facility] Vital Signs Date Time Vital Sign Value Performing Clinician Facility 11-06-2024 12:46-0400 Heart rate 69 /min Dr. Dipak Aguilar DO Work Phone: [facility] 11-06-2024 12:46-0400 Respiratory rate 18 /min Dr. Dipak Aguilar DO Work Phone: [facility] 11-06-2024 12:25-0400 Diastolic blood pressure 67 mm[Hg] Dr. Dipak Aguilar DO Work Phone: [facility] 11-06-2024 12:25-0400 Inhaled oxygen flow rate 2 L/min Dr. Dipak Aguilar DO Work Phone: [facility] 11-06-2024 12:25-0400 SaO2% (BldA) [Mass fraction] 93 % Dr. Dipak Aguilar DO Work Phone: [facility] 11-06-2024 12:25-0400 Systolic blood pressure 123 mm[Hg] Dr. Dipak Aguilar DO Work Phone: [facility] 11-06-2024 08:47-0400 Body temperature 97.8 [degF] Dr. Dipak Agiular DO Work Phone: 1(811)338-514674 [place] [address] 11-05-2024 05:18-0400 Body mass index (BMI) [Ratio] 29.4 kg/m2 Dr. Dipak Aguilar DO Work Phone: 0(090)190-691274 [place] [address] 11-05-2024 05:18-0400 Body weight 98.[address] Dipak Aguilar DO Work Phone: 6(888)949-221174 [place] [address] 11-03-2024 12:00-0400 Inhaled oxygen concentration 35 % Dr. Dipak Aguilar DO Work Phone: 5(862)095-681974 [place] [address] 11-01-2024 11:17-0400 Body height 182.[address] Dipak Aguilar DO Work Phone: 3(389)044-259974 [place] [address] 10-26-2024 22:59-0400 Body temperature 99.1 [degF] Dr. Dipak Aguilar DO Work Phone: 2(185)042-823174 [place] [address] 10-26-2024 22:59-0400 Diastolic blood pressure 74 mm[Hg] Dr. Dipak Aguilar DO Work Phone: 8(661)759-603574 [place] [address] 10-26-2024 22:59-0400 Heart rate 93 /min Dr. Dipak Aguilar DO Work Phone: 0(278)035-404074 [place] [address] 10-26-2024 22:59-0400 Inhaled oxygen flow rate 2 L/min Dr. Dipak Aguilar DO Work Phone: 5(191)707-272774 [place] [address] 10-26-2024 22:59-0400 Respiratory rate 23 /min Dr. Dipak Aguilar DO Work Phone: 6(465)379-316374 [place] [address] 10-26-2024 22:59-0400 SaO2% (BldA) [Mass fraction] 93 % Dr. Dipak Aguilar DO Work Phone: 0(301)110-614274 [place] [address] 10-26-2024 22:59-0400 Systolic blood pressure 111 mm[Hg] Dr. Dipak Aguilar DO Work Phone: 7(809)396-525374 [place] [address] 10-26-2024 16:40-0400 Body height 182.[address] Dipak Aguilar DO Work Phone: 1(080)090-780974 [place] [address] 10-26-2024 16:40-0400 Body mass index (BMI) [Ratio] 26.9 kg/m2 Dr. Dipak Aguilar DO Work Phone: 5(463)236-711474 [place] [address] 10-26-2024 16:40-0400 Body weight 90.[address] Dipak Aguilar DO Work Phone: 2(135)890-278374 [place] [address] 10-14-2024 08:45-0400 Body temperature 97.6 [degF] Dr. Dipak Aguilar DO Work Phone: 5(993)817-663374 [place] [address] 10-14-2024 08:45-0400 Diastolic blood pressure 87 mm[Hg] Dr. Dipak Aguilar DO Work Phone: 5(888)795-762974 [place] [address] 10-14-2024 08:45-0400 Heart rate 71 /min Dr. Dipak Aguilar DO Work Phone: 4(933)925-282874 [place] [address] 10-14-2024 08:45-0400 Respiratory rate 17 /min Dr. Dipak Aguilar DO Work Phone: 3(615)396-100674 [place] [address] 10-14-2024 08:45-0400 SaO2% (BldA) [Mass fraction] 97 % Dr. Dipak Aguilar DO Work Phone: 2(507)071-650374 [place] [address] 10-14-2024 08:45-0400 Systolic blood pressure 133 mm[Hg] Dr. Dipak Aguilar DO Work Phone: 5(482)800-608774 [place] [address] 10-14-2024 07:29-0400 Body height 182.[address] Dipak Aguilar DO Work Phone: 7(882)827-444774 [place] [address] 10-14-2024 07:29-0400 Body mass index (BMI) [Ratio] 27.1 kg/m2 Dr. Dipak Aguilar DO Work Phone: 0(088)885-093274 [place] [address] 10-14-2024 07:29-0400 Body weight 90.[address] Dipak Aguilar DO Work Phone: 4(127)387-305174 [place] [address] 09-21-2024 08:28-0400 Body mass index (BMI) [Ratio] 27.89 kg/m2 Vikki Haagen ADVERTISING COPYWRITER.TERMINAL COMPUTER OPERATOR Work Phone: [facility] 09-21-2024 08:28-0400 Body weight 90.72 kg Vikki Haagen ADVERTISING COPYWRITER.TERMINAL COMPUTER OPERATOR Work Phone: [facility] 09-21-2024 08:28-0400 Diastolic blood pressure 70 mm[Hg] Vikki Haagen ADVERTISING COPYWRITER.TERMINAL COMPUTER OPERATOR Work Phone: [facility] 09-21-2024 08:28-0400 Heart rate 101 /min Vikki Haagen ADVERTISING COPYWRITER.TERMINAL COMPUTER OPERATOR Work Phone: [facility] 09-21-2024 08:28-0400 Respiratory rate 16 /min Vikki Haagen ADVERTISING COPYWRITER.TERMINAL COMPUTER OPERATOR Work Phone: [facility] 09-21-2024 08:28-0400 Systolic blood pressure 122 mm[Hg] Vikki Haagen ADVERTISING COPYWRITER.TERMINAL COMPUTER OPERATOR Work Phone: [facility] 09-17-2024 08:21-0400 Body mass index (BMI) [Ratio] 27.95 kg/m2 Vikki Haagen ADVERTISING COPYWRITER.TERMINAL COMPUTER OPERATOR Work Phone: [facility] 09-17-2024 08:21-0400 Body weight 90.9 kg Vikki Haagen ADVERTISING COPYWRITER.TERMINAL COMPUTER OPERATOR Work Phone: [facility] 09-17-2024 08:21-0400 Diastolic blood pressure 70 mm[Hg] Vikki Haagen ADVERTISING COPYWRITER.TERMINAL COMPUTER OPERATOR Work Phone: [facility] 09-17-2024 08:21-0400 Heart rate 101 /min Vikki Haagen ADVERTISING COPYWRITER.TERMINAL COMPUTER OPERATOR Work Phone: [facility] 09-17-2024 08:21-0400 Respiratory rate 16 /min Vikki Haagen ADVERTISING COPYWRITER.TERMINAL COMPUTER OPERATOR Work Phone: [facility] 09-17-2024 08:21-0400 SaO2% (BldA) [Mass fraction] 98 % Vikki Haagen ADVERTISING COPYWRITER.TERMINAL COMPUTER OPERATOR Work Phone: [facility] 09-17-2024 08:21-0400 Systolic blood pressure 122 mm[Hg] Vikki Albrecht TERMINAL COMPUTER OPERATOR Work Phone: [facility] 09-11-2024 12:56-0400 Body temperature 97.4 [degF] Dr. Dipak Aguilar DO Work Phone: [facility] 09-11-2024 12:56-0400 Diastolic blood pressure 123 mm[Hg] Dr. Dipak Aguilar DO Work Phone: 3(520)985-275617 [place] [address] 09-11-2024 12:56-0400 Heart rate 78 /min Dr. Dipak Aguilar DO Work Phone: 0(361)729-250074 [place] [address] 09-11-2024 12:56-0400 Respiratory rate 16 /min Dr. Dipak Aguilar DO Work Phone: 7(727)432-752374 [place] [address] 09-11-2024 12:56-0400 SaO2% (BldA) [Mass fraction] 100 % Dr. Dipak Aguilar DO Work Phone: [facility] 09-11-2024 12:56-0400 Systolic blood pressure 190 mm[Hg] Dr. Dipak Aguilar DO Work Phone: [facility] 09-11-2024 10:13-0400 Body height 185.[address] Dipak Aguilar DO Work Phone: [facility] 09-11-2024 10:13-0400 Body mass index (BMI) [Ratio] 26.2 kg/m2 Dr. Dipak Aguilar DO Work Phone: [facility] 09-11-2024 10:13-0400 Body weight 90.[address] Dipak Aguilar DO Work Phone: [facility] 09-10-2024 11:58-0400 Diastolic blood pressure 88 mm[Hg] Elaine Jiang Jr., MD Work Phone: [facility] Comment on above: manual recheck 09-10-2024 11:58-0400 Systolic blood pressure 136 mm[Hg] Elaine Jiang Jr., MD Work Phone: [facility] Comment on above: manual recheck 09-10-2024 11:19-0400 Body mass index (BMI) [Ratio] 27.48 kg/m2 Elaine Jiang Jr., MD Work Phone: [facility] 09-10-2024 11:19-0400 Body weight 89.36 kg Elaine Jiang Jr., MD Work Phone: [facility] 09-10-2024 11:19-0400 Heart rate 83 /min Elaine Jiang Jr., MD Work Phone: [facility] 09-10-2024 11:19-0400 Respiratory rate 16 /min Elaine Jiang Jr., MD Work Phone: [facility] 09-10-2024 11:19-0400 SaO2% (BldA) [Mass fraction] 97 % Elaine Jiang Jr., MD Work Phone: [facility] 09-05-2024 11:55-0400 Body mass index (BMI) [Ratio] 27.62 kg/m2 Dipak Aguilar DO Work Phone: [facility] 09-05-2024 11:55-0400 Body temperature 97 [degF] Dipak Aguilar DO Work Phone: [facility] 09-05-2024 11:55-0400 Body weight 89.81 kg Dipak Aguilar DO Work Phone: [facility] 09-05-2024 11:55-0400 Diastolic blood pressure 82 mm[Hg] Dipak Aguilar DO Work Phone: [facility] 09-05-2024 11:55-0400 Heart rate 80 /min Dipak Aguilar DO Work Phone: [facility] 09-05-2024 11:55-0400 Respiratory rate 20 /min Dipak Aguilar DO Work Phone: [facility] 09-05-2024 11:55-0400 Systolic blood pressure 128 mm[Hg] Dipak Aguilar DO Work Phone: [facility] 07-02-2024 15:27-0400 Body height 180.3 cm Analisa Nicole MD Work Phone: [facility] 07-02-2024 15:27-0400 Body mass index (BMI) [Ratio] 28.4 kg/m2 Analisa Nicole MD Work Phone: [facility] 07-02-2024 15:27-0400 Body weight 92.35 kg Analisa Nicole MD Work Phone: [facility] 07-02-2024 15:27-0400 Diastolic blood pressure 70 mm[Hg] Analisa Nicole MD Work Phone: [facility] 07-02-2024 15:27-0400 Heart rate 90 /min Analisa Nicole MD Work Phone: [facility] 07-02-2024 15:27-0400 Respiratory rate 12 /min Analisa Nicole MD Work Phone: [facility] 07-02-2024 15:27-0400 SaO2% (BldA) [Mass fraction] 96 % Analisa Nicole MD Work Phone: [facility] 07-02-2024 15:27-0400 Systolic blood pressure 128 mm[Hg] Analisa Nicole MD Work Phone: [facility] 06-28-2024 13:31-0400 Body mass index (BMI) [Ratio] 28.19 kg/m2 Elisa Jose ADVERTISING COPYWRITER.TERMINAL COMPUTER OPERATOR Work Phone: [facility] 06-28-2024 13:31-0400 Body weight 93.8 kg Elisa Jose ADVERTISING COPYWRITER.TERMINAL COMPUTER OPERATOR Work Phone: [facility] 06-28-2024 13:31-0400 Diastolic blood pressure 88 mm[Hg] Elisa Jose ADVERTISING COPYWRITER.TERMINAL COMPUTER OPERATOR Work Phone: [facility] 06-28-2024 13:31-0400 Heart rate 76 /min Elisa Rameshman ADVERTISING COPYWRITER.TERMINAL COMPUTER OPERATOR Work Phone: [facility] 06-28-2024 13:31-0400 SaO2% (BldA) [Mass fraction] 95 % Elisa Jose ADVERTISING COPYWRITER.TERMINAL COMPUTER OPERATOR Work Phone: [facility] 06-28-2024 13:31-0400 Systolic blood pressure 144 mm[Hg] Elisa Jose ADVERTISING COPYWRITER.TERMINAL COMPUTER OPERATOR Work Phone: [facility] 05-30-2024 14:41-0400 Body mass index (BMI) [Ratio] 27.68 kg/m2 Elisa Jose ADVERTISING COPYWRITER.TERMINAL COMPUTER OPERATOR Work Phone: [facility] 05-30-2024 14:41-0400 Body weight 92.08 kg Elisa Jose ADVERTISING COPYWRITER.TERMINAL COMPUTER OPERATOR Work Phone: [facility] 05-30-2024 14:41-0400 Diastolic blood pressure 78 mm[Hg] Elisa Jose ADVERTISING COPYWRITER.TERMINAL COMPUTER OPERATOR Work Phone: [facility] 05-30-2024 14:41-0400 Heart rate 78 /min Elisa Jose ADVERTISING COPYWRITER.TERMINAL COMPUTER OPERATOR Work Phone: [facility] 05-30-2024 14:41-0400 SaO2% (BldA) [Mass fraction] 94 % Elisa Jose ADVERTISING COPYWRITER.TERMINAL COMPUTER OPERATOR Work Phone: [facility] 05-30-2024 14:41-0400 Systolic blood pressure 110 mm[Hg] Elisa Jose ADVERTISING COPYWRITER.TERMINAL COMPUTER OPERATOR Work Phone: [facility] 05-16-2024 13:15-0400 Body mass index (BMI) [Ratio] 28.96 kg/m2 Radha Berman ADVERTISING COPYWRITER.TERMINAL COMPUTER OPERATOR Work Phone: [facility] 05-16-2024 13:15-0400 Body weight 96.34 kg Radha Berman ADVERTISING COPYWRITER.TERMINAL COMPUTER OPERATOR Work Phone: [facility] 05-16-2024 13:15-0400 Diastolic blood pressure 68 mm[Hg] Radha Berman ADVERTISING COPYWRITER.TERMINAL COMPUTER OPERATOR Work Phone: [facility] 05-16-2024 13:15-0400 Heart rate 87 /min Radha Berman ADVERTISING COPYWRITER.TERMINAL COMPUTER OPERATOR Work Phone: [facility] 05-16-2024 13:15-0400 Respiratory rate 16 /min Radha Berman ADVERTISING COPYWRITER.TERMINAL COMPUTER OPERATOR Work Phone: [facility] 05-16-2024 13:15-0400 SaO2% (BldA) [Mass fraction] 97 % Radha Berman ADVERTISING COPYWRITER.TERMINAL COMPUTER OPERATOR Work Phone: [facility] 05-16-2024 13:15-0400 Systolic blood pressure 130 mm[Hg] Radha Berman ADVERTISING COPYWRITER.TERMINAL COMPUTER OPERATOR Work Phone: [facility] 12-05-2023 13:31-0400 Body height 182.4 cm Pulm Wstr Work Phone: [facility] 12-05-2023 13:31-0400 Body mass index (BMI) [Ratio] 27.54 kg/m2 Pulm Wstr Work Phone: [facility] 12-05-2023 13:31-0400 Body weight 91.63 kg Pulm Wstr Work Phone: [facility] 12-05-2023 13:31-0400 Heart rate 87 /min Pulm Wstr Work Phone: [facility] 12-05-2023 13:31-0400 Respiratory rate 16 /min Pulm Wstr Work Phone: [facility] 12-05-2023 13:31-0400 SaO2% (BldA) [Mass fraction] 97 % Pulm Wstr Work Phone: [facility] 11-29-2023 07:05-0400 Body mass index (BMI) [Ratio] 27.53 kg/m2 Elisa Jose ADVERTISING COPYWRITER.TERMINAL COMPUTER OPERATOR Work Phone: [facility] 11-29-2023 07:05-0400 Body weight 92.08 kg Elisa Jose ADVERTISING COPYWRITER.TERMINAL COMPUTER OPERATOR Work Phone: [facility] 11-29-2023 07:05-0400 Diastolic blood pressure 78 mm[Hg] Elisa Jose ADVERTISING COPYWRITER.TERMINAL COMPUTER OPERATOR Work Phone: [facility] 11-29-2023 07:05-0400 Heart rate 78 /min Elisa Jose ADVERTISING COPYWRITER.TERMINAL COMPUTER OPERATOR Work Phone: [facility] 11-29-2023 07:05-0400 Respiratory rate 16 /min Elisa Jose ADVERTISING COPYWRITER.TERMINAL COMPUTER OPERATOR Work Phone: [facility] 11-29-2023 07:05-0400 SaO2% (BldA) [Mass fraction] 98 % Elisa Jose ADVERTISING COPYWRITER.TERMINAL COMPUTER OPERATOR Work Phone: [facility] 11-29-2023 07:05-0400 Systolic blood pressure 126 mm[Hg] Elisa Jose ADVERTISING COPYWRITER.TERMINAL COMPUTER OPERATOR Work Phone: [facility] 09-12-2023 10:16-0400 Body height 182.9 cm Analisa Nicole MD Work Phone: [facility] 09-12-2023 10:16-0400 Body mass index (BMI) [Ratio] 27.97 kg/m2 Analisa Nicole MD Work Phone: [facility] 09-12-2023 10:16-0400 Body weight 93.53 kg Analisa Nicole MD Work Phone: [facility] 09-12-2023 10:16-0400 Diastolic blood pressure 99 mm[Hg] Analisa Nicole MD Work Phone: [facility] 09-12-2023 10:16-0400 Heart rate 75 /min Analisa Nicole MD Work Phone: [facility] 09-12-2023 10:16-0400 SaO2% (BldA) [Mass fraction] 94 % Analisa Nicole MD Work Phone: [facility] 09-12-2023 10:16-0400 Systolic blood pressure 145 mm[Hg] Analisa Nicole MD Work Phone: [facility] 06-24-2023 08:19-0400 Body height 182.9 cm Aj Issa MD Work Phone: [facility] 06-24-2023 08:19-0400 Heart rate 72 /min Aj Issa MD Work Phone: [facility] 06-24-2023 08:19-0400 SaO2% (BldA) [Mass fraction] 100 % Aj Issa MD Work Phone: [facility] 10-19-2022 10:09-0400 Body height 185.4 cm Aj Issa MD Work Phone: [facility] 10-19-2022 10:09-0400 Heart rate 76 /min Aj Issa MD Work Phone: [facility] 10-19-2022 10:09-0400 SaO2% (BldA) [Mass fraction] 100 % Aj Issa MD Work Phone: [facility] 10-12-2022 11:40-0400 Diastolic blood pressure 72 mm[Hg] Beata Watkins APRN.TERMINAL COMPUTER OPERATOR Work Phone: [facility] 10-12-2022 11:40-0400 Heart rate 77 /min Beata Watkins APRN.TERMINAL COMPUTER OPERATOR Work Phone: [facility] 10-12-2022 11:40-0400 SaO2% (BldA) [Mass fraction] 98 % Beata Watkins APRN.TERMINAL COMPUTER OPERATOR Work Phone: [facility] 10-12-2022 11:40-0400 Systolic blood pressure 126 mm[Hg] Beata Watkins APRN.TERMINAL COMPUTER OPERATOR Work Phone: [facility] 08-31-2022 08:21-0400 Body weight 93.44 kg Wes Mcintosh MD Work Phone: [facility] 08-31-2022 08:21-0400 Diastolic blood pressure 70 mm[Hg] Wes Mcintosh MD Work Phone: [facility] 08-31-2022 08:21-0400 Heart rate 74 /min Wes Mcintosh MD Work Phone: [facility] 08-31-2022 08:21-0400 Systolic blood pressure 110 mm[Hg] Wes Mcintosh MD Work Phone: [facility] 08-17-2022 10:19-0400 Body height 185.4 cm Aj Issa MD Work Phone: [facility] 08-17-2022 10:19-0400 Heart rate 91 /min Aj Issa MD Work Phone: [facility] 08-17-2022 10:19-0400 SaO2% (BldA) [Mass fraction] 97 % Aj Issa MD Work Phone: [facility] 07-26-2022 09:23-0400 Body weight 96.16 kg Crystal Pradhan ADVERTISING COPYWRITER.TERMINAL COMPUTER OPERATOR Work Phone: [facility] 07-26-2022 09:23-0400 Diastolic blood pressure 84 mm[Hg] Crystal Pradhan ADVERTISING COPYWRITER.TERMINAL COMPUTER OPERATOR Work Phone: [facility] 07-26-2022 09:23-0400 Heart rate 74 /min Crystal Lorne ADVERTISING COPYWRITER.TERMINAL COMPUTER OPERATOR Work Phone: [facility] 07-26-2022 09:23-0400 Respiratory rate 14 /min Crystal Lorne ADVERTISING COPYWRITER.TERMINAL COMPUTER OPERATOR Work Phone: [facility] 07-26-2022 09:23-0400 Systolic blood pressure 128 mm[Hg] Crystal Pradhan ADVERTISING COPYWRITER.TERMINAL COMPUTER OPERATOR Work Phone: [facility] 07-20-2022 10:12-0400 Body height 185.4 cm Aj Issa MD Work Phone: [facility] 07-20-2022 10:12-0400 Diastolic blood pressure 90 mm[Hg] Aj Issa MD Work Phone: [facility] 07-20-2022 10:12-0400 Heart rate 84 /min Aj Issa MD Work Phone: [facility] 07-20-2022 10:12-0400 Systolic blood pressure 144 mm[Hg] Aj Issa MD Work Phone: [facility] 07-01-2022 07:12-0400 Body temperature 97.59 [degF] Krislyn Aberegg PA Work Phone: [facility] 07-01-2022 07:12-0400 Body weight 96.8 kg Krislyn Aberegg PA Work Phone: [facility] 07-01-2022 07:12-0400 Diastolic blood pressure 76 mm[Hg] Krislyn Aberegg PA Work Phone: [facility] 07-01-2022 07:12-0400 Heart rate 94 /min Krislyn Aberegg PA Work Phone: [facility] 07-01-2022 07:12-0400 Respiratory rate 18 /min Krislyn Aberegg PA Work Phone: [facility] 07-01-2022 07:12-0400 SaO2% (BldA) [Mass fraction] 96 % Krislyn Aberegg PA Work Phone: [facility] 07-01-2022 07:12-0400 Systolic blood pressure 128 mm[Hg] Krislyn Aberegg PA Work Phone: [facility] 06-29-2022 15:26-0400 Body height 180.3 cm Aj Issa MD Work Phone: [facility] 06-29-2022 15:26-0400 Body weight 95.25 kg Aj Issa MD Work Phone: [facility] 06-29-2022 15:26-0400 Respiratory rate 18 /min Aj Issa MD Work Phone: [facility] 12-08-2021 09:35-0400 Body temperature 97.59 [degF] Korin Araiza APRN.CNP Work Phone: [facility] 12-08-2021 09:35-0400 Body weight 95.53 kg Korin Araiza APRN.TERMINAL COMPUTER OPERATOR Work Phone: [facility] 12-08-2021 09:35-0400 Diastolic blood pressure 64 mm[Hg] Korin Araiza APRN.TERMINAL COMPUTER OPERATOR Work Phone: [facility] 12-08-2021 09:35-0400 Heart rate 86 /min Korin Araiza APRN.TERMINAL COMPUTER OPERATOR Work Phone: [facility] 12-08-2021 09:35-0400 Respiratory rate 18 /min Korin Araiza APRN.TERMINAL COMPUTER OPERATOR Work Phone: [facility] 12-08-2021 09:35-0400 SaO2% (BldA) [Mass fraction] 99 % Korin Araiza APRN.TERMINAL COMPUTER OPERATOR Work Phone: [facility] 12-08-2021 09:35-0400 Systolic blood pressure 122 mm[Hg] Korin Araiza APRN.TERMINAL COMPUTER OPERATOR Work Phone: [facility] Encounters Encounter Date Encounter Type Care Provider Facility Start: 11-06-2024 Dr. Ilan Contreras MD -[facility] Work Phone: Start: 11-06-2024 Kylee Altamirano [facility] Start: 11-05-2024 Dr. Ilan Contreras MD -[facility] Work Phone: Start: 11-04-2024 Dr. Genia Scott DO -[facility] Work Phone: Start: 11-03-2024 Dr. Genia Scott DO -[facility] Work Phone: Start: 11-02-2024 Dr. Genia Scott DO -[facility] Work Phone: Start: 11-01-2024 Kylee Altamirano [facility] Start: 10-31-2024 Airam DAVIDSON -[facility] Start: 10-31-2024 Dr. Cece Bella MD - [facility] Start: 10-31-2024 Dr. Khai Bose MD -[facility] Work Phone: Start: 10-30-2024 Airam WILLARDC -[facility] Start: 10-30-2024 Dr. Goran Bowens DO -[facility] -PMW Start: 10-29-2024 Kylee ParkerW -[facility] Start: 10-28-2024 Dr. Kenn Cavazos MD - [facility] Start: 10-28-2024 Dr. Khai Bose MD -[facility] Work Phone: Start: 10-27-2024 Dr. Kenn Cavazos MD - [facility] Start: 10-27-2024 ambulatory Dipak Shipman y:[facility] Start: 10-27-2024 Dr. Sue Anderson MD -[facility] Start: 10-27-2024 Dr. Khai Bose MD -[facility] Work Phone: Start: 10-26-2024 End: 11-06-2024 Evaluation and management of inpatient Dr. Fernanda Triplett MD -Intensive Care Unit Work Phone: Start: 10-26-2024 End: 11-06-2024 Dr. Ilan Contreras MD -[facility] Work Phone: Start: 10-26-2024 End: 10-26-2024 ambulatory Dipak Aguilar DO Work Phone: [facility] Comment on above: Nausea Start: 10-14-2024 End: 10-14-2024 Dr. Abdelrahman Keller MD -Emergency Departm ent Work Phone: Start: 10-14-2024 End: 10-14-2024 Emergency department patient visit Dr. Dipak Aguilar DO Work Phone: -Emergency Department Work Phone: Start: 10-10-2024 End: 10-11-2024 Telephone encounter Dipak Aguilar DO Work Phone: [facility] Comment on above: Patent Update: Mahin lester BP Start: 09-21-2024 End: 09-21-2024 Patient encounter procedure Vikki Albrecht APRN.TERMINAL COMPUTER OPERATOR Work Phone: [facility] [place] Comment on above: Laceration of right hand without foreign body, subsequent encounter (Primary Dx) Start: 09-21-2024 End: 09-21-2024 ambulatory DIPAK AGUILAR Facility:[facility] Start: 09-17-2024 End: 09-17-2024 Office outpatient visit 25 minutes Vikki Albrecht APRN.TERMINAL COMPUTER OPERATOR Work Phone: [facility] [place] Comment on above: Right eyelid lacerat ion, subsequent encounter (Primary Dx) Start: 09-17-2024 End: 09-17-2024 ambulatory DIPAK AGUILAR Facility:[facility] Start: 09-11-2024 End: 09-11-2024 Dr. Sukhdev Mark MD -Emergency Departmen t Work Phone: Start: 09-11-2024 End: 09-11-2024 Emergency department patient visit Dr. Dipak Aguilar DO Work Phone: -Emergency Department Work Phone: Start: 09-11-2024 End: 09-11-2024 ambulatory DIPAK AGUILAR Facility:[facility] Start: 09-11-2024 End: 09-11-2024 Patient encounter procedure Ananya Frazier APRN.TERMINAL COMPUTER OPERATOR Work Phone: [facility] [place] Comment on above: Injury of head, init ial encounter (Primary Dx); Fall, initial encounter; prison current use of anticoagulant therapy; Laceration without foreign body of right hand, initial encounter; Atrial fibrillation, unspecified type (HCC) Start: 09-10-2024 End: 09-10-2024 ambulatory DIPAK AGUILAR Facility:[facility] Start: 09-10-2024 End: 09-10-2024 Patient encounter procedure Elaine Jiang MD Work Phone: Neurology Comment on above: TIA (transient ische alex attack) (Primary Dx); Mild cognitive impairment; Memory loss; Sleep apnea-like behavior; History of atrial fibrillation Start: 09-07-2024 End: 09-07-2024 ambulatory DIPAK L AGUILAR Facility:[facility] Start: 09-05-2024 End: 09-05-2024 Patient encounter procedure Dipak Magi Gaonaon DO Work Phone: [facility] [place] Comment on above: Hypertension, essent ial (Primary Dx); Permanent atrial fibrillation (HCC); Pulmonary hypertension (HCC); New onset type 2 diabetes mellitus (HCC); Stage 3a chronic kidney disease (HCC); Cerebrovascular accident (CVA), unspecified mechanism (HCC); SOB (shortness of breath) on exertion; Vitamin D deficiency; Dyslipidemia; Fatigue, unspecified type Start: 09-05-2024 End: 09-05-2024 ambulatory DIPAK L AGUILAR Facility:[facility] Start: 08-31-2024 End: 10-31-2024 Follow-up encounter Ruma Chi APRN.CNP Work Phone: [facility] Start: 08-22-2024 End: 08-22-2024 ambulatory DIPAK L AGUILAR Facility:[facility] Start: 07-12-2024 End: 07-12-2024 ambulatory DIPAK L AGUILAR Facility:[facility] Start: 07-02-2024 End: 07-02-2024 Patient encounter procedure Analisa Nicole MD Work Phone: Cardiology Comment on above: Permanent atrial fib rillation (HCC) [I48.21] (Primary Dx) Start: 07-02-2024 End: 07-02-2024 ambulatory DIPAK L AGUILAR Facility:[facility] Start: 06-28-2024 End: 06-28-2024 Office outpatient visit 25 minutes Elisa Garcia APRN.TERMINAL COMPUTER OPERATOR Work Phone: [facility] [place] Comment on above: Hypertension, essent ial (Primary Dx); Permanent atrial fibrillation (HCC); New onset type 2 diabetes mellitus (HCC) Start: 06-28-2024 End: 06-28-2024 ambulatory DIPAK L AGUILAR Facility:[facility] Start: 06-14-2024 End: 06-14-2024 ambulatory ELISA GARCIA Facility:[facility] Start: 06-13-2024 End: 06-13-2024 ambulatory ELISA RIVERAUTZMAN Facility:[facility] Start: 06-08-2024 End: 06-08-2024 Telephone encounter Citlalli Arnold RN Pulmonary Medicine Comment on above: FILM FABIANO-CHRISTIANO Start: 06-07-2024 End: 06-11-2024 Telephone encounter Dipak Aguilar DO Work Phone: [facility] [place] Comment on above: Patient Update Start: 05-31-2024 End: 05-31-2024 ambulatory Elisa Garcia APRN.TERMINAL COMPUTER OPERATOR Work Phone: [facility] [place] Comment on above: medication clarifica tion please Start: 05-31-2024 End: 05-31-2024 Refill Analisa Nicole MD Work Phone: [facility] [place] Comment on above: Med Change Request Start: 05-30-2024 End: 05-30-2024 Office outpatient visit 25 minutes Elisa Garcia APRN.TERMINAL COMPUTER OPERATOR Work Phone: [facility] [place] Comment on above: New onset type 2 bayron betes mellitus (HCC) (Primary Dx); Permanent atrial fibrillation (HCC); Hypertension, essential Start: 05-30-2024 End: 05-31-2024 Refill Analisa Nicole MD Work Phone: [facility] [place] Comment on above: Refill Request Start: 05-24-2024 End: 05-29-2024 Telephone encounter Dipak Aguilar DO Work Phone: [facility] [place] Comment on above: Patient Update Start: 05-21-2024 End: 05-22-2024 Telephone encounter Dipak Aguilar DO Work Phone: [facility] [place] Comment on above: Home Health Nursing- Plan of Care (And physical therapy plan of care/); Hypertension Start: 05-18-2024 End: 07-18-2024 Follow-up encounter Elisa Garcia APRN.TERMINAL COMPUTER OPERATOR Work Phone: [facility] [place] Start: 05-17-2024 End: 05-17-2024 Follow-up encounter Radha Berman APRN.TERMINAL COMPUTER OPERATOR Work Phone: [facility] [place] Start: 05-17-2024 End: 05-17-2024 Telephone encounter Dipak Aguilar DO Work Phone: [facility] [place] Comment on above: Fax over last OV Not e Start: 05-17-2024 End: 05-17-2024 ambulatory DIPAK AGUILAR Facility:[facility] Start: 05-17-2024 End: 05-17-2024 Subsequent hospital visit by physician [facility] Work Phone: Radiology Comment on above: Hospital discharge f ollow-up [Z09] Start: 05-16-2024 End: 05-16-2024 ambulatory RADHA BERMAN Facility:[facility] Start: 05-16-2024 End: 05-16-2024 Office outpatient visit 40 minutes Radha Berman ADVERTISING COPYWRITER.TERMINAL COMPUTER OPERATOR Work Phone: [facility] [place] Comment on above: Hospital discharge f ollow-up (Primary Dx); Asthma-COPD overlap syndrome (HCC); Chronic respiratory failure with hypoxia (HCC); Decreased activities of daily living (ADL); Bilateral leg edema; Confusion; Cerebrovascular accident (CVA), unspecified mechanism (HCC); Poor mobility; Unsteady gait Start: 02-06-2024 End: 02-08-2024 Refill Analisa Nicole MD Work Phone: [facility] Comment on above: Refill Request Start: 01-31-2024 End: 01-31-2024 Telephone encounter Analisa Nicole MD Work Phone: Cardiology Start: 01-24-2024 End: 01-24-2024 Patient encounter procedure [facility] Provider [facility] Department Start: 01-09-2024 End: 01-10-2024 Telephone encounter Dipak Aguilar DO Work Phone: [facility] [place] Comment on above: Medication Problem Start: 01-04-2024 End: 01-04-2024 Patient encounter procedure [facility] Provider [facility] Department Start: 01-04-2024 End: 01-04-2024 Telephone encounter Analisa Nicole MD Work Phone: [facility] [place] Comment on above: Cardiac Clearance Start: 12-13-2023 End: 12-13-2023 Telephone encounter Elisa Garcia APRN.TERMINAL COMPUTER OPERATOR Work Phone: [facility] [place] Comment on above: Results; Appointment Start: 12-12-2023 End: 12-12-2023 Telephone encounter Analisa Nicole MD Work Phone: Cardiology Start: 12-12-2023 End: 12-12-2023 ambulatory DIPAK AGUILAR Facility:[facility] Start: 12-12-2023 End: 12-12-2023 Nursing evaluation of patient and report Nurse Card Admin [facility] Work Phone: Cardiology Comment on above: Screening for ischem ic heart disease (Primary Dx) Start: 12-12-2023 End: 12-12-2023 ambulatory DIPAK AGUILAR Facility:[facility] Start: 12-12-2023 End: 12-12-2023 Subsequent hospital visit by physician [facility] Work Phone: Nuclear Medicine Start: 12-06-2023 End: 12-06-2023 Telephone encounter Dipak Aguilar DO Work Phone: [facility] [place] Start: 12-05-2023 End: 12-05-2023 Patient encounter procedure Pulm Lab [facility] Work Phone: PULM [facility] Start: 12-05-2023 End: 12-05-2023 Subsequent [facility] Work Phone: Cat Scan Comment on above: Wheezing [R06.2] Start: 12-05-2023 End: 12-05-2023 ambulatory Pulm Lab [facility] Work Phone: PULM [facility] Comment on above: Spirometry Start: 11-29-2023 End: 11-29-2023 ambulatory ELISA GARCIA Facility:[facility] Start: 11-29-2023 End: 11-29-2023 Patient encounter procedure Elisa Garcia YOSELYN Work Phone: [facility] [place] Comment on above: Medicare annual well ness visit, subsequent (Primary Dx); Wheezing; Asthma-COPD overlap syndrome (HCC); SOB (shortness of breath) on exertion; Decreased activity tolerance; Productive cough; Screening for depression; Encounter for immunization; Encounter for screening examination for other mental health and behavioral disorders Start: 11-28-2023 End: 11-28-2023 ambulatory Nurse Card Admin [facility] [employer] Work Phone: Cardiology Comment on above: Stress Test Instruct ions for 12/05/23 Start: 11-28-2023 End: 11-28-2023 E-mail encounter from caregiver Nurse Card Admin [facility] [employer] Work Phone: Cardiology Start: 11-23-2023 End: 11-23-2023 ambulatory DIPAK L AGUILAR Facility:[facility] Start: 11-23-2023 End: 11-23-2023 Office outpatient new 45 minutes Jeffrey Hdz MD Work Phone: Orthopaedics Comment on above: Lumbar spondylosis ( Primary Dx) Start: 11-23-2023 ambulatory DIPAK L AGUILAR [facility] Start: 11-23-2023 End: 11-23-2023 Subsequent hospital visit by physician [employer] [facility] Work Phone: Radiology Comment on above: Bilateral hip pain [ M25.551, M25.552] Start: 11-14-2023 End: 11-16-2023 Refill Analisa Nicole MD Work Phone: [facility] [place] Comment on above: Refill Request Start: 11-10-2023 End: 11-10-2023 Orders Only Jeffrey Hdz MD Work Phone: Orthopaedics Comment on above: Bilateral hip pain ( Primary Dx) Start: 11-04-2023 End: 11-04-2023 ambulatory DIPAK L AGUILAR Facility:[facility] Start: 11-02-2023 End: 11-03-2023 Telephone encounter Dipak Aguilar DO Work Phone: [facility] [place] Start: 11-01-2023 End: 11-01-2023 Refill Wes Mcintosh MD Work Phone: [facility] Comment on above: Refill Request Start: 10-04-2023 Telephone encounter Dipak upton DO Work Phone: [facility] [place] Start: 09-30-2023 ambulatory Facility:[facility] Start: 09-28-2023 Telephone encounter Analisa Nicole MD Work Phone: Cardiology Comment on above: Results Start: 09-12-2023 End: 09-12-2023 Patient encounter procedure Analisa Nicole MD Work Phone: Cardiology Comment on above: Screening for ischem ic heart disease (Primary Dx); Shortness of breath; Permanent atrial fibrillation (HCC) Start: 06-24-2023 End: 06-24-2023 Patient encounter procedure Aj Issa MD Work Phone: [facility] Comment on above: Bladder neck strictu re (Primary Dx); ED (erectile dysfunction) of organic origin Start: 06-24-2023 End: 06-24-2023 ambulatory AJ ISSA Facility:[facility] Start: 05-17-2023 Refill Aj Issa MD Work Phone: [facility] Comment on above: Refill Request Start: 05-02-2023 ambulatory Mini Saldaña RN Amb ulatory Care Management Comment on above: ACM HERMINIO RN ( EDU per request of payor) Start: 11-19-2022 Telephone encounter Radha neff ADVERTISING COPYWRITER.TERMINAL COMPUTER OPERATOR Work Phone: [facility] [place] Comment on above: Results Start: 11-01-2022 Refill Wes Mcintosh MD Work Phone: Cardiology Comment on above: Refill Request Start: 10-26-2022 End: 10-26-2022 Nursing evaluation of patient and report Nurse Urol Marcy Work Phone: [facility] Comment on above: BPH with obstruction /lower urinary tract symptoms (Primary Dx) Start: 10-20-2022 Preprocedural examination done Aj Issa MD Work Phone: [facility] Work Phone: Start: 10-20-2022 Telephone encounter Aj Issa MD Work Phone: [facility] Comment on above: Computerized Table Cutter - H ospital Follow Up Start: 10-19-2022 End: 10-19-2022 Patient encounter procedure Aj Issa MD Work Phone: [facility] Comment on above: Weak urinary stream (Primary Dx); Bladder neck stricture; Frequency of micturition Start: 10-14-2022 Telephone encounter Dipak upton DO Work Phone: [facility] Comment on above: requesting a GI refe rral Start: 10-12-2022 End: 10-12-2022 Patient encounter procedure Beata Watkins APRN.CNP Work Phone: [facility] Comment on above: Weak urinary stream (Primary Dx); Incomplete bladder emptying; Bladder neck stricture; Poor urinary stream; Nocturia Start: 09-29-2022 Telephone encounter Dipak upton DO Work Phone: [facility] Comment on above: Medication Problem Start: 08-31-2022 End: 08-31-2022 Patient encounter procedure Wes cMintosh MD Work Phone: Cardiology Comment on above: Permanent atrial fib rillation (HCC) (Primary Dx) Start: 08-20-2022 Telephone encounter Aj Issa MD Work Phone: [facility] Comment on above: Results Start: 08-17-2022 End: 08-17-2022 Patient encounter procedure Aj Issa MD Work Phone: [facility] Comment on above: Bladder neck strictu re (Primary Dx); Nocturia; Urinary incontinence, unspecified type Start: 08-09-2022 End: 08-09-2022 Nursing evaluation of patient and report Nurse Urol Marcy Work Phone: [facility] Comment on above: BPH with obstruction /lower urinary tract symptoms (Primary Dx) Start: 08-05-2022 Telephone encounter Aj Issa MD Work Phone: [facility] Comment on above: Computerized Table Cutter - H ospital Follow Up Start: 07-29-2022 Preprocedural examination done Aj Issa MD Work Phone: [facility] Work Phone: Start: 07-26-2022 End: 07-26-2022 Patient encounter procedure Crystal Pradhan APRN.TERMINAL COMPUTER OPERATOR Work Phone: [facility] [place] Comment on above: Preoperative clearan ce (Primary Dx); Asthma-COPD overlap syndrome (HCC); Atrial fibrillation, unspecified type (HCC) Start: 07-26-2022 End: 07-26-2022 Preoperative state Crystal Pradhan APRN.TERMINAL COMPUTER OPERATOR Work Phone: [facility] [place] Start: 07-22-2022 Telephone encounter Aj Issa MD Work Phone: [facility] Comment on above: Surgery Scheduled Start: 07-21-2022 Telephone encounter Dipak upton DO Work Phone: [facility] [place] Comment on above: medical clearance fo rm Start: 07-20-2022 End: 07-20-2022 Patient encounter procedure Aj Issa MD Work Phone: [facility] Comment on above: BPH with obstruction /lower urinary tract symptoms (Primary Dx); Nocturia; Poor urinary stream; Incomplete bladder emptying; Bladder neck stricture Start: 07-01-2022 End: 07-01-2022 Patient encounter procedure Denise FLOYD Work Phone: [facility] Comment on above: Acute otitis externa of right ear, unspecified type (Primary Dx); Cellulitis of right external ear Start: 06-29-2022 End: 06-29-2022 Patient encounter procedure Aj Issa MD Work Phone: [facility] Comment on above: BPH with obstruction /lower urinary tract symptoms (Primary Dx); Nocturia; Poor urinary stream; Frequency of micturition; Incomplete bladder emptying Start: 12-28-2021 Telephone encounter Wes Booth MD Work Phone: Cardiology Comment on above: Patient Update Start: 12-08-2021 End: 12-08-2021 Patient encounter procedure Korin Mariana RUVALCABATERMINAL COMPUTER OPERATOR Work Phone: [facility] Comment on above: Skin lesion (Primary Dx) Start: 12-07-2021 Telephone encounter Dipak upotn DO Work Phone: [facility] [place] Comment on above: Results Start: 12-01-2021 End: 12-01-2021 Nursing evaluation of patient and report Mi Nurse Work Phone: [facility] [place] Comment on above: Need for vaccination (Primary Dx) Start: 09-30-2021 Telephone encounter Wes Booth MD Work Phone: Cardiology Comment on above: Forms Start: 08-07-2021 ambulatory No Pcp [employer] Start: 10-13-2020 End: 10-13-2020 Subsequent hospital visit by physician Xr [facility] [place] Work Phone: Radiology Comment on above: Knee injury, right, initial encounter [S89.91XA] Start: 09-26-2019 Patient encounter status [facility] Start: 11-01-2017 End: 11-01-2017 Patient encounter AJ Short GUILLERMO Facility:[facility] Procedures Date Procedure Procedure Detail Performing Clinician Start: 11-05-2024 Blood count smear rscp w/mnl difrntl wbc count Dr. Dipak Aguilar DO Work Phone: Start: 11-05-[address] Dipak Aguilar DO Work Phone: Start: 11-05-2024 Flow cytometry cell surf marker techl only 1st Dr. Dipak Aguilar DO Work Phone: Start: 11-05-2024 Mean corpuscular hem oglobin concentration determination Dr. Dipak Aguilar DO Work Phone: Start: 11-05-2024 Myelocyte percent differential count Dr. Dipak Aguilar DO Work Phone: Start: 11-05-2024 Platelet mean volume determination Dr. Dipak Aguilar DO Work Phone: Start: 11-03-2024 Serum inorganic phos phate measurement Dr. Dipak Aguilar DO Work Phone: Start: 11-02-2024 Carbon dioxide measu rement, partial pressure Dr. Dipak Aguilar DO Work Phone: Start: 11-02-2024 Gases blood o2 satur ation only direct maritza Dr. Dipak Aguilar DO Work Phone: Start: 11-02-2024 Measurement of parti al pressure of oxygen in blood Dr. Dipak Aguilar DO Work Phone: Start: 11-02-[address] Dipak Aguilar DO Work Phone: Start: 11-02-2024 Plain chest X-ray Dr. Teresa Aguilar DO Work Phone: Start: 11-02-2024 Gram stain microscopy Leslie Aguilar DO Work Phone: Start: 11-02-2024 Respiratory microbia l culture Dr. Dipak Aguilar DO Work Phone: Start: 11-02-2024 Lymphocyte percent differential count Dr. Dipak Aguilar DO Work Phone: Start: 11-02-2024 Red blood cell morphology Dr. Dipak Aguilar DO Work Phone: Start: 11-01-2024 Nucleated red blood cell count procedure Dr. Dipak Aguilar DO Work Phone: Start: 10-30-[address] Dipak Aguilar DO Work Phone: Start: 10-29-[address] Dipak Aguilar DO Work Phone: Start: 10-29-2024 Gram stain microscopy Leslie Aguilar DO Work Phone: Start: 10-29-2024 End: 10-29-2024 Microbial culture, body fluid Dr. Dipak Aguilar DO Work Phone: Start: 10-29-2024 Calculation of inter national normalized ratio Dr. Dipak Aguilar DO Work Phone: Start: 10-29-2024 Dr. Dipak Aguilar DO Work Phone: Start: 10-28-2024 End: 10-28-2024 Plain chest X-ray Dr. Dipak Aguilar DO Work Phone: Start: 10-28-2024 Plain X-ray abdomen Dr. Dipak Aguilar DO Work Phone: Start: 10-27-[address] acid assay [address] Dipak Aguilar DO Work Phone: Start: 10-27-2024 Legionella pneumophi la antigen assay Dr. Dipak Aguilar DO Work Phone: Start: 10-27-[address] Dipak Aguilar DO Work Phone: Start: 10-27-2024 Sars-cov-2 Dr. Dipak Aguilar DO Work Phone: Start: 10-27-2024 End: 10-27-2024 Streptococcus pneumoniae antigen assay Dr. Dipak Aguilar DO Work Phone: Start: 10-27-[address] Shellie Aguilar DO Work Phone: Start: 10-26-2024 CT of chest without contrast Dr. Dipak Aguilar DO Work Phone: Start: 10-26-2024 US scan of gallbladder Dr. Dipak Aguilar DO Work Phone: Start: 10-26-[address] Dipak Aguilar DO Work Phone: Start: 10-26-2024 [address]ol lipa se measurement Dr. Dipak Aguilar DO Work Phone: Start: 10-26-[address] Marie Aguilar DO Work Phone: Start: 09-21-2024 REMOVAL SUTURES OR S TAPLES NOT REQUIRING ANESTHESIA Vikki Albrecht ADVERTISING COPYWRITER.TERMINAL COMPUTER OPERATOR Work Phone: Start: 09-17-2024 REMOVAL SUTURES OR S TAPLES NOT REQUIRING ANESTHESIA Vikki Albrecht ADVERTISING COPYWRITER.TERMINAL COMPUTER OPERATOR Work Phone: Start: 09-11-2024 X-ray of knee, four or more views Dr. Dipak Aguilar DO Work Phone: Start: 09-11-2024 CT of head without contrast Dr. Dipak Aguilar DO Work Phone: Start: 05-17-2024 Dup-scan xtr veins c omplete bilateral study Radha Berman ADVERTISING COPYWRITER.TERMINAL COMPUTER OPERATOR Work Phone: Start: 12-12-2023 Myocardial spect mul tiple studies Analisa Nicole MD Work Phone: Start: 12-05-2023 Plethysmography lung volumes w/wo airway resist Elisa Garcia ADVERTISING COPYWRITER.TERMINAL COMPUTER OPERATOR Work Phone: Start: 11-29-2023 Adult depression scr eening assessment Elisa Garcia ADVERTISING COPYWRITER.TERMINAL COMPUTER OPERATOR Work Phone: Start: 11-23-2023 Radex spine lumbosac ral 2/3 views Jeffrey Hdz MD Work Phone: Start: 11-23-2023 Radex hips bilateral with pelvis minimum 5 views Jeffrey Hdz MD Work Phone: Start: 09-12-2023 Ecg routine ecg w/le ast 12 lds i&r only [facility] Provider Start: 06-24-2023 Urnls dip stick/tabl et rgnt auto w/o microscopy Aj Issa MD Work Phone: Start: 10-19-2022 Urnls dip stick/tabl et rgnt auto w/o microscopy Aj sIsa MD Work Phone: Start: 10-12-2022 Urnls dip stick/tabl et rgnt auto w/o microscopy Beata Watkins ADVERTISING COPYWRITER.TERMINAL COMPUTER OPERATOR Work Phone: Start: 08-17-2022 Maritza post-voiding re sidual urine&/bladder cap Aj Issa MD Work Phone: Start: 08-17-2022 Culture bacterial quanttative colony count urine Aj Isas MD Work Phone: Start: 07-26-2022 Ecg routine ecg w/le ast 12 lds i&r only [facility] Provider Start: 07-20-2022 Urnls dip stick/tabl et rgnt auto w/o microscopy Aj Issa MD Work Phone: Start: 12-01-2021 [employer] COVI D-19 BIVALENT BOOSTER VACCINE, AGE 12+ YR Dipak Magi Aguilar DO Work Phone: Start: 10-13-2020 Radiologic exam ches t 2 views Wes Chavez ADVERTISING COPYWRITER.TERMINAL COMPUTER OPERATOR Work Phone: Start: 10-13-2020 Radiologic exam knee complete 4/more views Wes Chavez ADVERTISING COPYWRITER.TERMINAL COMPUTER OPERATOR Work Phone: Plan of Treatment Date Care Activity Detail Author Start: 05-17-2027 Diabetes Screening Diabetes Screening [facility] Start: 11-03-2026 Diabetes Screening Diabetes Screening [facility] Start: 11-18-2025 Diabetes Screening Diabetes Screening [facility] Start: 09-30-2025 End: 09-30-2025 Patient encounter procedure 09/30/2025 2:00 PM EDT Office Visit [facility] [address] [place] [address] Aj Issa MD [address] [place] [address] 12 months [facility] Comment on above: 12 months Start: 09-05-2025 Diabetic foot examination Diabetic Foot Exam [facility] Start: 07-29-2025 DIABETES SCREEN DIABETES SCREEN [facility] Start: 05-16-2025 Hepatitis B surface antibody level LDL Cholesterol [facility] Start: 02-22-2025 Hemoglobin A1c measurement HbA1C [facility] Start: 02-11-2025 End: 02-11-2025 Patient encounter procedure 02/11/2025 9:00 AM EST Office Visit Cardiology [address] [place] [address] Analisa Nicole MD [address], [address] [place] [address] 6 month follow up Cardiology Comment on above: 6 month follow up Start: 12-24-2024 End: 12-24-2024 Patient encounter procedure 12/24/2024 3:00 PM EST Office Visit [facility] [place] [address] [facility] [place] [address] Dipak Aguilar DO [address] [facility] [address] 4 month follow up [facility] [place] Comment on above: 4 month follow up Start: 11-28-2024 Anxiety Screening Anxiety Screening [facility] Start: 11-28-2024 Depression Screening Depression Screening [facility] Start: 11-28-2024 Urine microalbumin profile DTaP,Tdap,Td Vaccine (1 - Tdap) [facility] Comment on above: Postponed from 11/12/2017 (Declined at t his time) Start: 11-16-2024 DIABETES SCREEN DIABETES SCREEN [facility] Start: 11-16-2024 [facility]c [facility] Start: 11-06-2024 Patient discharge [facility] Start: 11-03-2024 [facility] Start: 11-02-[address] [facility] Start: 11-02-2024 Dual pressure spontaneous ventilation support [facility] Start: 11-02-2024 Inhalation therapy procedure [facility] Start: 10-31-2024 Care planning and problem solving actions [facility] Start: 10-31-2024 [facility] Start: 10-31-2024 Consultation [facility] Start: 10-31-2024 Referral to real estate sales supervisor [facility] Start: 10-31-2024 Care planning and problem solving actions [facility] Start: 10-30-2024 Care planning and problem solving actions [facility] Start: 10-29-2024 Consultation [facility] Start: 10-29-[address] [facility] Start: 10-29-2024 Vital signs measurements [facility] Start: 10-28-2024 End: 10-28-2024 [facility] Start: 10-28-2024 Percutaneous transhepatic insertion of biliary drain [facility] Start: 10-28-2024 [facility] Start: 10-27-2024 Application of intermittent pneumatic compression device [facility] Start: 10-27-2024 Following clinical pathway protocol [facility] Start: 10-27-2024 Aspiration precautions [facility] Start: 10-27-2024 Assessment of risk of venous thromboembolism [facility] Start: 10-27-2024 Care regimes management [facility] Start: 10-27-2024 Elevation of head of bed [facility] Start: 10-27-2024 Fall prevention [facility] Start: 10-27-2024 Insertion of catheter into peripheral vein [facility] Start: 10-27-2024 Introduction of urinary catheter [facility] Start: 10-27-2024 Measuring intake and output [facility] Start: 10-27-2024 Methicillin resistant Staphylococcus aureus screening test [facility] Start: 10-27-[address] [facility] Start: 10-27-2024 Oxygen therapy [facility] Start: 10-27-2024 Patient education [facility] Start: 10-27-2024 End: 10-27-2024 Patient referral to dietitian [facility] Start: 10-27-2024 Providing care according to standard [facility] Start: 10-27-2024 Provision of activity privileges [facility] Start: 10-27-2024 Referral to general surgeon [facility] Start: 10-27-2024 Referral to occupational therapist [facility] Start: 10-27-2024 Referral to service [facility] Start: 10-27-2024 Vital signs measurements [facility] Start: 10-27-2024 End: 10-27-2024 [facility] Start: 10-27-2024 Legionella pneumophila Ag [Presence] in Urine [facility] Start: 10-27-2024 Respiratory pathogens DNA and RNA panel - Respiratory specimen by ELOY with probe detection [facility] Start: 10-27-2024 Serum inorganic phosphate measurement [facility] Start: 10-27-2024 Streptococcus pneumoniae antigen assay [facility] Start: 10-27-2024 Verification routine [facility] Start: 10-26-2024 Admission procedure [facility] Start: 10-26-2024 Hospital admission, emergency, from emergency room, medical nature [facility] Start: 10-26-2024 [facility] Start: 10-22-2024 Influenza vaccination Influenza Vaccine (#1) [facility] Start: 10-14-2024 [facility] Start: 09-25-2024 End: 09-25-2024 Patient encounter procedure [facility] Comment on above: 12 months (resched from 06/25) Yearly- Need updated medication list Start: 09-21-2024 End: 09-21-2024 Patient encounter procedure 09/21/2024 8:40 AM EDT Office Visit [facility] [address] [place] [address] Vikki Albrecht, ADVERTISING COPYWRITER.TERMINAL COMPUTER OPERATOR [address] [place] [address] stitch removal on hand(done at [facility] 09/11/24) Family [facility] [place] Comment on above: stitch removal on hand(done at [facility] ) Start: 09-17-2024 End: 09-17-2024 Patient encounter procedure 09/17/2024 8:20 AM EDT Office Visit [facility] [address] [place] [address] Vikki Albrecht, ADVERTISING COPYWRITER.TERMINAL COMPUTER OPERATOR [address] [place] [address] [facility] 09/11/24 f/u-pt fell- stitch removal by eye [facility] [place] Comment on above: [facility] 09/11/24 f/u-pt fell- stitch remov al by eye Start: 09-11-2024 Simple repair f/e/e/n/l/m 2.5cm/< [facility] Start: 09-11-2024 Smpl repair scalp/neck/ax/genit/trunk 2.6-7.5cm [facility] Start: 09-11-2024 [facility] Start: 09-10-2024 End: 09-10-2024 Patient encounter procedure 09/10/2024 11:00 AM EDT Office Visit Neurology [address] [place] [address] Elaine Jiang Jr., MD [address] [place], [place] [id number] Hospital discharge follow-up [Z09] Neurology Comment on above: Hospital discharge follow-up [Z09] Start: 09-07-2024 End: 09-07-2024 Patient encounter procedure 09/07/2024 1:50 PM EDT Office Visit Cardiology [address] [place], [place] [address] Permanent atrial fibrillation (HCC) [I48.21]; Hypertension, essential [I10]; Pulmonary hypertension (HCC) [I27.20] Cardiology Comment on above: Permanent atrial fibrillation (HCC) [I48 .21]; Hypertension, essential [I10]; Pulmonary hypertension (HCC) [I27.20] Start: 09-05-2024 End: 09-05-2024 Patient encounter procedure 09/05/2024 12:00 PM EDT Office Visit Family [facility] [address] [place], [place] [phone] Dipak Aguilar DO [address] [place] [address] 3 mo follow up [facility] Comment on above: 3 mo follow up Start: 07-12-2024 End: 07-12-2024 Patient encounter procedure 07/12/2024 3:20 PM EDT Office Visit [facility] [address] [place], [place] [phone] Ruma Chi APRN.TERMINAL COMPUTER OPERATOR [address] [place] [address] 2 week follow up [facility] [place] Comment on above: 2 week follow up Start: 07-02-2024 End: 07-02-2024 Patient encounter procedure Cardiology Comment on above: 1yr Start: 06-25-2024 End: 06-25-2024 Patient encounter procedure [facility] Comment on above: 12 months 12/28 lvm need to r/ s Dr. Issa Lung nodule [R91.1] Start: 06-14-2024 End: 06-14-2024 Patient encounter procedure 06/14/2024 1:30 PM EDT Office Visit Pulmonary Medicine [address] [place], [place] [address] Omar Treadwell APRN.TERMINAL COMPUTER OPERATOR [address] [place] [address] Lung nodule [R91.1] Pulmonary Medicine Comment on above: Lung nodule [R91.1] Start: 06-13-2024 End: 06-13-2024 Patient encounter procedure 06/13/2024 3:40 PM EDT Office Visit [facility] [address] [place], [place] [address] Elisa Garcia, NEHA.TERMINAL COMPUTER OPERATOR [address] [place], [place] [phone] 2 week bp check [facility] [place] Comment on above: 2 week bp check Start: 05-30-2024 End: 05-30-2024 Patient encounter procedure 05/30/2024 2:40 PM EDT Office Visit Family [facility] [address] [place], [place] [phone] Elisa Garcia, ADVERTISING COPYWRITER.TERMINAL COMPUTER OPERATOR [address] [place], [place] [phone] 2 wk follow up (diuretics) [facility] [place] Comment on above: 2 wk follow up (diuretics) Start: 05-17-2024 End: 05-17-2024 Patient encounter procedure 05/17/2024 8:30 AM EDT Appointment Radiology [address] [place] [id number] Hospital discharge follow-up [Z09] Radiology Comment on above: Hospital discharge follow-up [Z09] Start: 05-16-2024 End: 08-15-2024 Comprehensive metabolic 2000 panel - Serum or Plasma [facility] Work Phone: Comment on above: Expected: 05/16/2024, Expires: Start: 05-16-2024 End: 08-15-2024 Lipid 1996 panel - Serum or Plasma [facility] Comment on above: Expected: 05/16/2024, Expires: Start: 05-16-2024 End: 08-15-2024 Natriuretic peptide.B prohormone N-Terminal [Mass/volume] in Serum or Plasma [facility] Comment on above: Expected: 05/16/2024, Expires: Start: 05-16-2024 End: 08-15-2024 Thyrotropin [Units/volume] in Serum or Plasma [facility] Comment on above: Expected: 05/16/2024, Expires: Start: 04-28-2024 Covid-19 Vaccine () Covid-19 Vaccine () [facility] Start: 02-22-2024 Advance Directive Discussion Advance Directive Discussion [facility] Start: 02-22-2024 Medicare Advantage Annual Wellness Visit Medicare Advantage Annual Wellness Visit [facility] Start: 12-12-2023 End: 12-12-2023 Nursing evaluation of patient and report 12/12/2023 11:20 AM EDT Nurse Visit Cardiology [address] [place] [phone] W[facility], Nurse Card Admin [facility] [address] [id number] Shortness of breath [R06.02] Cardiology Comment on above: Shortness of breath [R06.02] Start: 12-12-2023 End: 12-12-2023 Patient encounter procedure Nuclear Medicine Comment on above: Shortness of breath [R06.02] Start: 12-05-2023 End: 12-05-2023 ambulatory [facility]UL[facility] Comment on above: Wheezing [R06.2]; 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]; SOB (shortness of breath) on exertion [R06.02]; Decreased activity tolerance [R68.89]; Productive cough [R05.8] Start: 12-05-2023 End: 12-05-2023 Nursing evaluation of patient and report 12/05/2023 8:15 AM EDT Nurse Visit Cardiology [address] [place] [phone] Wstr, Nurse Card Admin [facility] [address] [place], [place] [phone] Shortness of breath [R06.02] Cardiology Comment on [...] 11/29/2023 7:00 AM EDT Office Visit Family [facility] [address] [place], [place] [phone] Elisa Garcia APRN.TERMINAL COMPUTER OPERATOR [address] [place], [place] [phone] annual check up Family [facility] Comment on above: annual check up Start: 11-23-2023 End: 11-23-2023 Patient encounter procedure Orthopaedics Comment on above: kelley hip pain (both hips replaced in past outside of [facility]) b hip Start: 11-18-2023 Covid-19 Vaccine (6 - Pfizer series) Covid-19 Vaccine (6 - Pfizer series) [facility] Comment on above: Postponed from 04/03/2022 (Declined at t his time) Start: 11-18-2023 Urine microalbumin profile DTaP,Tdap,Td Vaccine (1 - Tdap) [facility] Comment on above: Postponed from 11/12/2017 (Declined at t his time) Start: 11-14-2023 DIABETES SCREEN DIABETES SCREEN [facility] Start: 11-02-2023 End: 02-01-2024 25-hydroxyvitamin D3 [Mass/volume] in Serum or Plasma VITAMIN D 25 HYDROXY Lab Routine Fatigue, unspecified type Atrial fibrillation, unspecified type (HCC) Vitamin D deficiency Expected: 11/02/2023, Expires: 02/01/2024 [facility] Comment on above: Expected: 11/02/2023, Expires: Start: 11-02-2023 End: 02-01-2024 CBC W Auto Differential panel - Blood COMPLETE BLOOD COUNT AND DIFFERENTIAL Lab Routine Fatigue, unspecified type Atrial fibrillation, unspecified type (HCC) Dyslipidemia Expected: 11/02/2023, Expires: 02/01/2024 [facility] Work Phone: Comment on above: Expected: 11/02/2023, Expires: Start: 11-02-2023 End: 02-01-2024 Cobalamin (Vitamin B12) [Mass/volume] in Serum or Plasma VITAMIN B12 Lab Routine Fatigue, unspecified type Atrial fibrillation, unspecified type (HCC) Expected: 11/02/2023, Expires: 02/01/2024 [facility] Comment on above: Expected: 11/02/2023, Expires: 4 Start: 11-02-2023 End: 02-01-2024 Comprehensive metabolic 2000 panel - Serum or Plasma COMPREHENSIVE METABOLIC PANEL Lab Routine Atrial fibrillation, unspecified type (HCC) Expected: 11/02/2023, Expires: 02/01/2024 [facility] Comment on above: Expected: 11/02/2023, Expires: 4 Start: 11-02-2023 End: 02-01-2024 Hemoglobin A1c in Blood HEMOGLOBIN A1C Lab Routine Atrial fibrillation, unspecified type (HCC) Hyperglycemia Expected: 11/02/2023, Expires: 02/01/2024 [facility] Comment on above: Expected: 11/02/2023, Expires: Start: 11-02-2023 End: 02-01-2024 Iron and Iron binding capacity panel - Serum or Plasma IRON AND TIBC Lab Routine Fatigue, unspecified type Atrial fibrillation, unspecified type (HCC) Expected: 11/02/2023, Expires: 02/01/2024 [facility] Comment on above: Expected: 11/02/2023, Expires: 4 Start: 11-02-2023 End: 02-01-2024 Lipid 1996 panel - Serum or Plasma LIPID PANEL BASIC Lab Routine Atrial fibrillation, unspecified type (HCC) Dyslipidemia Expected: 11/02/2023, Expires: 02/01/2024 [facility] Comment on above: Expected: 11/02/2023, Expires: Start: 11-02-2023 End: 02-01-2024 Magnesium [Mass/volume] in Serum or Plasma MAGNESIUM Lab Routine Fatigue, unspecified type Atrial fibrillation, unspecified type (HCC) Expected: 11/02/2023, Expires: 02/01/2024 [facility] Comment on above: Expected: 11/02/2023, Expires: 4 Start: 11-02-2023 End: 02-01-2024 PSA/PROSTATE SPECIFIC ANTIGEN SCREENING PSA/PROSTATE SPECIFIC ANTIGEN SCREENING Lab Routine BPH with obstruction/lower urinary tract symptoms Screening for prostate cancer Expected: 11/02/2023, Expires: 02/01/2024 [facility] Comment on above: Expected: 11/02/2023, Expires: 4 Start: 11-02-2023 End: 02-01-2024 Thyrotropin [Units/volume] in Serum or Plasma THYROID STIMULATING HORMONE Lab Routine Fatigue, unspecified type Atrial fibrillation, unspecified type (HCC) Expected: 11/02/2023, Expires: 02/01/2024 [facility] Comment on above: Expected: 11/02/2023, Expires: 4 Start: 11-02-2023 End: 02-01-2024 Thyroxine (T4) free [Mass/volume] in Serum or Plasma T4 FREE/FREE THYROXINE Lab Routine Fatigue, unspecified type Atrial fibrillation, unspecified type (HCC) Expected: 11/02/2023, Expires: 02/01/2024 [facility] Comment on above: Expected: 11/02/2023, Expires: Start: 11-01-2023 End: 01-31-2024 CBC W Auto Differential panel - Blood COMPLETE BLOOD COUNT AND DIFFERENTIAL Lab Routine Permanent atrial fibrillation (HCC) Expected: 11/01/2023, Expires: 01/31/2024 [facility] Work Phone: Comment on above: Expected: 11/01/2023, Expires: Start: 10-23-2023 [facility] Start: 09-26-2023 End: 09-11-2024 Echocardiography ECHO Cardiology Routine Shortness of breath Expected: 09/26/2023, Expires: 09/11/2024 [facility] Comment on above: Expected: 09/26/2023, Expires: 5 Start: 09-26-2023 End: 10-11-2024 NM Heart Perfusion W multiple states of exercise NM CARDIAC PERF STRESS/EXERCISE Radiology Routine Shortness of breath Expected: 09/26/2023, Expires: 10/11/2024 [facility] Comment on above: Expected: 09/26/2023, Expires: 5 Start: 09-26-2023 End: 09-26-2023 Patient encounter procedure 09/26/2023 11:20 AM EDT Office Visit Cardiology [address] [place] [address] Shortness of breath [R06.02] Cardiology Comment on above: Shortness of breath [R06.02] Start: 09-12-2023 End: 09-07-2024 ECG COMPLETE [facility] Work Phone: Comment on above: Expected: 09/12/2023, Expires: 5 Start: 09-12-2023 End: 09-12-2023 Patient encounter procedure 09/12/2023 10:40 AM EDT Office Visit Cardiology [address] [place] [phone] Analisa Nicole MD [address], [address] [place], [place] [phone] est care/ transfer from Dr. Mcintosh Cardiology Comment on above: est care/ transfer from Dr. Mcintosh Start: 02-21-2023 Advance Directive Discussion Advance Directive Discussion [facility] Start: 02-21-2023 Behavioral Health Screening Behavioral Health Screening [facility] Start: 02-21-2023 Depression Assessment Depression Assessment [facility] Start: 10-22-2022 Influenza vaccination INFLUENZA (#1) [facility] Start: 04-03-2022 COVID-19 VACCINE (6 - Pfizer series) COVID-19 VACCINE (6 - Pfizer series) [facility] Start: 02-21-2022 ADVANCE DIRECTIVE DISCUSSION ADVANCE DIRECTIVE DISCUSSION [facility] Start: 02-21-2022 DEPRESSION ASSESSMENT DEPRESSION ASSESSMENT [facility] Start: 10-22-2021 Influenza vaccination INFLUENZA (#1) [facility] Start: 03-19-2021 COVID-19 VACCINE (4 - Booster for Pfizer series) COVID-19 VACCINE (4 - Booster for Pfizer series) [facility] Start: 02-21-2021 ADVANCE DIRECTIVE DISCUSSION ADVANCE DIRECTIVE DISCUSSION [facility] Start: 02-21-2021 DEPRESSION ASSESSMENT DEPRESSION ASSESSMENT [facility] Start: 03-02-2019 SHINGRIX VACCINE (2 of 2) SHINGRIX VACCINE (2 of 2) [facility] Start: 11-12-2017 Urine microalbumin profile [facility] Start: 1954 Anxiety Screening Anxiety Screening [facility] Start: 1953 Depression Screening Depression Screening [facility] Start: 1945 Diabetic foot examination Diabetic Foot Exam [facility] Start: 1946 Glaucoma screening Dilated Retinal Exam [facility] Start: 1945 Hepatitis B screening Urine Albumin:Creatinine Ratio [facility] Bacteria identified in Urine by Culture URINE CULTURE Microbiology Routine Poor urinary stream Ordered: 07/20/2022 [facility] Work Phone: Comment on above: Ordered: 07/20/2022 Bacteria identified in Urine by Culture URINE CULTURE Microbiology Routine Urinary incontinence, unspecified type 08/17/2022 10:50 AM EDT [facility] Work Phone: Bacteria identified in Urine by Culture URINE CULTURE Microbiology Routine Weak urinary stream 10/12/2022 12:50 PM EDT [facility] Work Phone: End: 12-28-2024 CT Chest WO contrast CT CHEST WO IVCON Radiology Routine Wheezing Asthma-COPD overlap syndrome (HCC) SOB (shortness of breath) on exertion Decreased activity tolerance Productive cough 1 Occurrences starting 11/29/2023 until 12/28/2024 [facility] Work Phone: Comment on above: 1 Occurrences starting 11/29/2023 until 12/28/2024 CT Chest WO contrast CT CHEST WO IVCON Radiology Routine Wheezing Asthma-COPD overlap syndrome (HCC) SOB (shortness of breath) on exertion Decreased activity tolerance Productive cough 12/05/2023 11:51 AM EDT [facility] Work Phone: Cystourethroscopy CYSTO.PANENDO Procedures Routine Bladder neck stricture Ordered: 07/20/2022 [facility] Work Phone: Comment on above: Ordered: 07/20/2022 Cystourethroscopy CYSTO.PANENDO Procedures Routine Weak urinary stream Ordered: 10/19/2022 [facility] Work Phone: Comment on above: Ordered: 10/19/2022 Cystourethroscopy CYSTO.PANENDO Procedures Routine Bladder neck stricture Ordered: 06/24/2023 [facility] Work Phone: Comment on above: Ordered: 06/24/2023 End: 07-27-2023 ECG COMPLETE ECG COMPLETE ECG Routine Preoperative clearance 1 Occurrences starting 07/26/2022 until 07/27/2023 [facility] Work Phone: Comment on above: 1 Occurrences starting 07/26/2022 until 07/27/2023 ECG COMPLETE ECG COMPLETE ECG 07/26/2022 9:57 AM EDT [facility] End: 09-05-2025 Echocardiography ECHO Cardiology Routine Permanent atrial fibrillation (HCC) Hypertension, essential Pulmonary hypertension (HCC) 1 Occurrences starting 09/05/2024 until 09/05/2025 [facility] Work Phone: Comment on above: 1 Occurrences starting 09/05/2024 until 09/05/2025 End: 12-28-2024 LUNG VOLUMES LUNG VOLUMES PFT Routine Wheezing Asthma-COPD overlap syndrome (HCC) SOB (shortness of breath) on exertion Decreased activity tolerance Productive cough 1 Occurrences starting 11/29/2023 until 12/28/2024 [facility] Comment on above: 1 Occurrences starting 11/29/2023 until 12/28/2024 Magnesium measurement [facility] Patient Education [facility] Work Phone: Serum inorganic phos phate measurement [facility] End: 12-28-2024 SPIROMETRY - BASELINE AND POST DILATOR SPIROMETRY - BASELINE AND POST DILATOR PFT Routine Wheezing Asthma-COPD overlap syndrome (HCC) SOB (shortness of breath) on exertion Decreased activity tolerance Productive cough 1 Occurrences starting 11/29/2023 until 12/28/2024 [facility] Comment on above: 1 Occurrences starting 11/29/2023 until 12/28/2024 End: 06-15-2025 US Lower extremity vein - bilateral US DVT LOWER BILATERAL Radiology Routine Hospital discharge follow-up Bilateral leg edema 1 Occurrences starting 05/16/2024 until 06/15/2025 [facility] Comment on above: 1 Occurrences starting 05/16/2024 until 06/15/2025 End: 12-09-2024 XR HIP BILATERAL 5V PEL/AP/LAT EACH HIP XR HIP BILATERAL 5V PEL/AP/LAT EACH HIP Radiology Routine Bilateral hip pain 1 Occurrences starting 11/10/2023 until 12/09/2024 [facility] Comment on above: 1 Occurrences starting 11/10/2023 until 12/09/2024 End: 12-09-2024 XR Knee - right 4 Views XR KNEE GENERAL 4V AP BOTH/PA BOTH/LAT/MERC RIGHT Radiology Routine Bilateral hip pain 1 Occurrences starting 11/10/2023 until 12/09/2024 [facility] Work Phone: Comment on above: 1 Occurrences starting 11/10/2023 until 12/09/2024 End: 12-22-2024 XR Lumbar spine AP and Lateral XR LUMBAR LIMITED 2V AP/LAT Radiology Routine 1 Occurrences starting 11/23/2023 until 12/22/2024 [facility] Work Phone: Comment on above: 1 Occurrences starting 11/23/2023 until 12/22/2024 XR Lumbar spine AP a nd Lateral XR LUMBAR LIMITED 2V AP/LAT Radiology Routine 11/23/2023 8:59 AM EDT [facility] Immunizations Immunization Date Immunization Notes Care Provider Sandy samano 11-30-2023 zoster vaccine recombinant Pulm Wstr Work Phone: [facility] 10-30-2023 influenza virus vacc ine, unspecified formulation Dipak Aguilar DO Work Phone: [facility] 05-08-2023 COVID-19 vaccine, ag e 12+ yr, season (PFIZER-BIONTECH) Aj Issa MD Work Phone: [facility] 11-27-2022 COVID-19 vaccine, ag e 12+ yr, season (PFIZER-BIONTECH) Mini Saldaña RN [facility] 11-04-2022 influenza (HD-IIV4) vaccine, age 65+ yr, high dose, quadrivalent, PF (FLUZONE HIGH-DOSE) Radha Berman ADVERTISING COPYWRITER.TERMINAL COMPUTER OPERATOR Work Phone: [facility] 11-04-2022 respiratory syncytia l virus (RSV) vaccine, adjuvanted (AREXVY) Radha Berman ADVERTISING COPYWRITER.TERMINAL COMPUTER OPERATOR Work Phone: [facility] 11-04-2022 influenza virus vacc ine, unspecified formulation Analisa Nicole MD Work Phone: [facility] 12-01-2021 COVID-19 booster vaccine, age 12+ yr, bivalent (PFIZER-BIONTECH) Mi Nurse Work Phone: [facility] Work Phone: 11-16-2021 influenza, high-dose , quadrivalent vaccine (FLUZONE HIGH DOSE QUADRIVALENT) Az Nurse Work Phone: [facility] Work Phone: 11-17-2020 COVID-19 vaccine, ag e 12+ yr (PFIZER-BIONTECH - PURPLE TOP) No [facility] 11-12-2020 influenza, high-dose , quadrivalent vaccine (FLUZONE HIGH DOSE QUADRIVALENT) No [facility] 04-16-2020 COVID-19 vaccine, ag e 12+ yr (PFIZER-BIONTECH - PURPLE TOP) No [facility] Work Phone: 03-18-2020 COVID-19 vaccine, ag e 12+ yr (PFIZER-BIONTECH - PURPLE TOP) No [facility] Work Phone: 11-12-2019 influenza, high-dose , quadrivalent vaccine (FLUZONE HIGH DOSE QUADRIVALENT) No [facility] 01-05-2019 zoster vaccine recombinant No [facility] 11-30-[address] [facility] 11-10-2018 influenza, high dose seasonal, preservative-free No [facility] 11-11-2017 influenza, high dose seasonal, preservative-free No [facility] 11-11-2017 tetanus and diphther ia toxoids, adsorbed, preservative free, for adult use (5 Lf of tetanus toxoid and 2 Lf of diphtheria toxoid) No [facility] 11-10-2016 influenza, high dose seasonal, preservative-free No [facility] Work Phone: 11-10-2015 influenza, high dose seasonal, preservative-free No [facility] Work Phone: 11-07-2014 influenza, high dose seasonal, preservative-free No [facility] 11-07-2014 pneumococcal conjuga te vaccine, 13 valent No [facility] 10-08-2013 pneumococcal polysaccharide vaccine, 23 valent No [facility] 11-20-2012 influenza virus vacc ine, unspecified formulation No [facility] 11-20-2011 influenza virus vacc ine, unspecified formulation No [facility] Work Phone: 08-17-2010 tetanus and diphther ia toxoids, adsorbed, preservative free, for adult use (2 Lf of tetanus toxoid and 2 Lf of diphtheria toxoid) No Pcp [facility] 12-19-2006 influenza virus vacc ine, unspecified formulation No Pcp [facility] Work Phone: 05-23-1999 pneumococcal polysaccharide vaccine, 23 valent No Pcp [facility] Work Phone: Payers Date Payer Category Payer Self-pay 2009 Medicare [id number] 2009 Medicare AETNA MEDICARE A ETNA MEDICARE PPO [id number] 2009-Present [phone] [address] [place] [address] PPO [id number] 2009 Medicare AETNA MEDICARE A ETNA MEDICARE PPO [id number] 2009-Present [phone] [address] [place] [address] [facility] [id number] 2009 Medicare (Managed Care) [facility] [id number] 2009 Medicare [id number] 1936 Unknown [id number] 2.16.840.1.310369.3.579.2. 594 Unknown [id number] 2.16.840.1.228495.3.579.2. 462 Unknown [id number] 2.16.840.1.587665.3.579.2. 462 Unknown [id number] 2.16.840.1.563690.3.579.2. 462 Unknown [id number] 2.16.840.1.049544.3.579.2. 462 Unknown [id number] 2.16.840.1.466797.3.579.2. 462 Unknown [id number] 2.16.840.1.180343.3.579.2. 462 Unknown [id number] 2.16.840.1.512791.3.579.2. 462 Unknown [id number] 2.16.840.1.134822.3.579.2. 462 Unknown [id number] 2.16840.1.595293.3.579.2. 462 Unknown [id number] 2.16840.1.979597.3.579.2. 462 Unknown [id number] 2.16.840.1.653640.3.579.2. 462 Unknown [id number] 2.16.840.1.457338.3.579.2. 462 Unknown [id number] 2.16.840.1.857044.3.579.2. 462 Unknown [id number] 2.16.840.1.854388.3.579.2. 462 Unknown [id number] 2.16.840.1.283971.3.579.2. 462 Unknown [id number] 2.16.840.1.564326.3.579.2. 462 Unknown [id number] 2.16.840.1.100427.3.579.2. 462 Unknown [id number] 2.16.840.1.611973.3.579.2. 462 Unknown [id number] 2.16.840.1.137652.3.579.2. 462 Unknown [id number] 2.16.840.1.767535.3.579.2. 462 Unknown [id number] 2.16.840.1.019243.3.579.2. 462 Unknown [id number] 2.16.840.1.126297.3.579.2. 462 Unknown [id number] 2.16.840.1.804365.3.579.2. 462 Unknown [id number] 2.16.840.1.314199.3.579.2. 462 Unknown [id number] 2.16.840.1.829913.3.579.2. 462 Social History Date Type Detail Facility Start: 09-26-2018 End: 10-27-2024 Tobacco smoking status NHIS Ex-smoker [facility] Work Phone: Start: 04-25-1950 End: 09-26-1973 History of tobacco use Current smoker [facility] Work Phone: Start: 04-25-1950 End: 09-26-1973 History of tobacco use Cigarette Smoker [facility] Work Phone: Start: 09-26-2018 End: 11-23-2023 Tobacco use and exposure Smokeless tobacco non-user [facility] Work Phone: Start: 10-13-2020 End: 07-02-2024 Alcohol intake Current drinker of alcohol (finding) [facility] Start: 11-06-2019 History SDOH Alcohol Frequency 4 [facility] Start: 11-06-2019 History SDOH Alcohol Std Drinks 1 [facility] Start: 11-06-2019 History SDOH Social Connections Phone 3 [facility] Start: 11-06-2019 History SDOH Social Connections Get Together 5 [facility] Start: 11-06-2019 History SDOH Social Connections Voodoo 2 [facility] Start: 11-06-2019 History SDOH Physica l Activity DPW 6 [facility] Start: 11-06-2019 Education 20 [facility] Start: 09-26-2018 End: 12-08-2021 Tobacco Comment "I was a light smoker, 1 pack every 3 days." [facility] Start: 1935 Sex Assigned At Male C [facility] Start: 09-13-2020 End: 12-08-2021 Exposure to SARS-CoV-2 (event) Not sure [facility] Start: 06-29-2022 End: 07-29-2022 Cigarettes smoked current (pack per day) - Reported 0.3 [facility] Start: 07-29-2022 Alcohol Comment occassional-on ce weekly [facility] Start: 11-06-2019 End: 06-29-2022 Social connection and isolation panel [facility] Do you belong to any clubs or organizations such as yarsani groups, unions, fraternal or athletic groups, or school groups? Yes [facility] Are you now , , , , never or living with a partner? [facility] How often to you hav e a drink containing alcohol? 2-3 time sa week [facility] How many standard dr inks containing alcohol do you have on a typical day? 1 or 2 [facility] How often do you hav e 6 or more drinks on 1 occasion? Never [facility] Start: 01-23-2012 Adult Depression Screening Assessment 0 [facility] Work Phone: Do you feel stress - tense, restless, nervous, or anxious, or unable to sleep at night because your mind is troubled all the time - these days [OSQ] Not at all [facility] (I/We) worried wheth er (my/our) food would run out before (I/we) got money to buy more. Never true [facility] In the past 12 month s, was there a time when you were not able to pay the mortgage or rent on time? No [facility] Start: 08-17-2020 Gender identity Identifies as male gender (finding) [facility] Do you feel stress - tense, restless, nervous, or anxious, or unable to sleep at night because your mind is troubled all the time - these days [OSQ] Only a little [facility] Work Phone: Start: 09-05-2019 Alcohol Alcohol [facility] Start: 09-05-2019 Lives Lives [facility] Medical Equipment Procedure Code Equipment Code Equipment Origin al Text Equipment Identifier Dates Test blood sugar (s) 1 times daily. Dx: Type 2 DM - Controlled E11.9 Insulin: No [id number] Start: 05-31-2024 Test blood sugar (s) 1 times daily. Dx: Type 2 DM - Controlled E11.9 Insulin: Yes [id number] Start: 05-31-2024 Goals Date Patient Goal Desired Activity /State Functional Status Date Assessment Result Facility 11-06-2024 Functional status Ambulates;Chair [facility] Work Phone: 11-05-2024 Functional status Fair [facility] Work Phone: 07-29-2022 Are you deaf, or do you have serious difficulty hearing No 07/29/2022 3:15 PM EDT Alejandra Freedman, NEHA.TERMINAL COMPUTER OPERATOR No [facility] 07-29-2022 Are you blind, or do you have serious difficulty seeing, even when wearing glasses No 07/29/2022 3:15 PM EDT Alejandra Freedman, NEHA.TERMINAL COMPUTER OPERATOR No [facility] 07-29-2022 Do you have serious difficulty walking or climbing stairs No 07/29/2022 3:15 PM EDT Alejandra Freedman, NEHA.TERMINAL COMPUTER OPERATOR No [facility] 07-29-2022 Do you have difficul ty dressing or bathing No 07/29/2022 3:15 PM EDT Alejandra Freedman, ADVERTISING COPYWRITER.TERMINAL COMPUTER OPERATOR No [facility] 07-29-2022 Because of a physica l, mental, or emotional condition, do you have difficulty doing errands alone such as visiting a physician's office or shopping No 07/29/2022 3:15 PM EDT Alejandra Freedman, NEHA.TERMINAL COMPUTER OPERATOR No [facility] Mental Status Date Assessment Result Facility 11-06-2024 Cognitive function Voice/Name [place] Work Phone: 10-14-2024 Cognitive function Awake;Alert;A ppropriate; Follows Commands [facility] Work Phone: 07-29-2022 Because of a physica l, mental, or emotional condition, do you have serious difficulty concentrating, remembering, or making decisions No 07/29/2022 3:15 PM EDT Alejandra Freedman APRN.TERMINAL COMPUTER OPERATOR No [facility] Clinical Notes 10-26-2018 to 11-06-2024 Note Date & Type Note Facility 11-06-2024 Progress note Note Date/Time November 06, 2024 10:20am [facility] Medical Records Department [address] [place] [address] Progress Note - Infect Disease 11/06/24 1014 MR#: [id number] Acct: [id number] Name: TAZ JOHNSON Rep #:[id number] : 1935 89 From: Junito eastman MD PCP: Dr. Dipak Aguilar, DO Status:AD M IN Location: [place] [address] Physical Exam Narrative Feeling better, no fever, no abd pain Const alert and no apparent distress General Appearance: cooperative Resp normal air movement and clear to auscultation bilaterally Cardio regular rate and regular rhythm GI soft to palpation, non-tender and non-distended Skin no rashes or lesions noted ID ID: Route of nutrition/ use of supplements: [] Nutritional Intake: [] IV Site: [] Kern Catheter: [] Assessment & Plan Assessment/Plan (1) Sepsis: (2) Acute cholecystitis: PLAN: Overall improved. Akash tube in place, surgery following. Cont ceftriaxone and flagyl for now. Plan on 2 more days abx, stop date 11/08/24. Can change to po augmentin 875mg bid at discharge. Will follow 11/06/24 1020 <Electronically signed by Junito Knowles MD> Cosigner Signature (if applicable): CC: ~ Signed [facility] Work Phone: [phone] 661-660709-16-2025 Discharge summary Author Ilan Contreras [facility] Note Date/Time November 06, 2024 9:38am [facility] Medical Records Department [address] [place] [address] Discharge Summary 11/06/24 0937 MR#: [id number] Acct: [id number] Name: TAZ JOHNSON Rep #:[id number] : 1935 89 From: Ilan Contreras MD PCP: Dr. Dipak Aguilar, Status:AD M IN Location: [place] [id number] Providers Date of Admission: 10/26/24 Date of Discharge: 11/06/24 Primary Care Physician: Dr. Dipak Aguilar, DO Consultations 10/27/24 00:32 Consult: General Surgery Routine Consulting Provider: Kenn Cavazos Reason for Consult: Acute cholecystitis EMERGENT Consult: No MD Notified: Yes Date Notified: 10/27/24 Time Notified: 00:02 Method of Notification: ED Physician Initiated Consult: Line Assembler / Pulmonary Medicine Routine Consulting Provider: Pulmonary Medicine [facility] Reason for Consult: Sepsis, Acute Cholecystitis, ? PNA EMERGENT Consult: No MD Notified: Yes Date Notified: 10/27/24 Time Notified: 06:35 Method of Notification: Text 10/29/24 13:35 Consult: Urology Routine Consulting Provider: Gerard Asencio Reason for Consult: Been unable to void, difficult, coud? Kern with blood and clots. EMERGENT Consult: No MD Notified: Yes Date Notified: 10/29/24 Time Notified: 13:35 Method of Notification: Text 10/30/24 08:42 Consult: Inpatient Palliative Care Routine Consulting Provider: Airam Gottlieb Reason for Consult: Goals of care discussion EMERGENT Consult: No MD Notified: Yes Date Notified: 10/30/24 Time Notified: 09:16 Method of Notification: Text 10/31/24 08:22 Consult: Cardiology Routine Consulting Provider: Cece Bella Reason for Consult: Afib RVR, uncontrolled EMERGENT Consult: No MD Notified: Yes Date Notified: 10/31/24 Time Notified: 08:22 Method of Notification: Text 10/31/24 08:24 Consult: Infectious Disease Routine Consulting Provider: Junito Knowles Reason for Consult: complicated cholecystitis, pnemonia, sepsis EMERGENT Consult: No MD Notified: Yes Date Notified: 10/31/24 Time Notified: 08:25 Method of Notification: Verbal Reason For Visit: SEPSIS, ACUTE CHOLECYSTITIS Diagnosis Discharge Diagnosis (1) Acute cholecystitis: Status: Acute Code(s): K81.0 - Acute cholecystitis Plan Patient is an 89-year-old gentleman who has been on admission for 10 days. Admitted with sepsis secondary to acute cholecystitis as well as aspiration pneumonia. Patient has had a protracted stay complicated by encephalopathy 1. Sepsis ? Secondary to acute cholecystitis as well as suspected aspiration pneumonia andsepsis have since resolved 2. Acute cholecystitis ? Patient was deemed not a surgical candidate. Subsequently underwent Cholecystostomy tube. Cultures grew Klebsiella as well as E. coli ID recommended ceftriaxone as well as Flagyl 3. Aspiration pneumonia ? Managed with ceftriaxone and Flagyl 4. Acute hypoxic respiratory failure ? Due to combination of aspiration pneumonia as well as fluid overload management of aspiration pneumonia as discussed above patient also did receive IV Lasix and pulmonary toileting 5. 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 2D echo obtained did show EF of 70% with mildly enlarged left and right atriumwith trivial mitral valve insufficiency. The estimated ejection fraction is 70 %.Patient is on furosemide 6. Paroxysmal atrial fibrillation Managed with apixaban beta-blockers as well as amiodarone 7. Dysphagia - Acute on chronic seen in consultation by speech therapy family apparently informed about continuous risk for aspiration 8. Acute kidney injury ? Patient creatinine on 11/01/2024 was 1.06 creatinine up to 1.52 of note patienthas baseline CKD stage III. Will continue monitoring and avoid potential nephrotoxic medications 9. Acute metabolic encephalopathy ? Secondary to patient's sepsis as well as JENELLE appears to be resolving. 10. Diabetes mellitus type 2 ? Patient is on metformin at home held placed on Accu-Cheks AC and at bedtime with sliding scale coverage 11. Hypertension ? Blood pressure controlled, home medications continued with dose adjustment as needed 12. BPH with lower urinary obstructive symptoms - Patient did develop urinary retention Kern catheter placed patient started onFlomax with plans for patient to follow-up with primary urologist on discharge 13. Dyslipidemia ?Patient is on statin therapy, continued at home dose 14. 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 Patient is on apixaban 15. DVT prophylaxis ? On apixaban 16. Physical deconditioning ? Requested for PT OT eval and outreach and education social worker to assist with discharge planning Time spent in the patient's overall evaluation,decision-making process, review of diagnostic data, adjustment of management, discussion with other providers, nursing nursing and ancillary staff involved in patient's care documentation, 50 Minutes Medications at Discharge Home Medications omeprazole 40 mg capsule,delayed release 20 mg PO DAILY reflux 07/22/15 albuterol sulfate 90 mcg/actuation breath activated powder inhaler 1 puff PO [id number] of breath 09/05/19 multivitamin 1 tab PO QWEEK 09/25/19 apixaban 5 mg tablet 5 mg PO BID #180 tabs 09/26/19 cholecalciferol (vitamin D3) 50 mcg (2,000 unit) tablet 50 mcg PO DAILY 09/26/19 tadalafil 5 mg tablet 5 mg PO DAILY 09/26/19 Lactobacillus acidophilus 10 billion cell capsule (Probiotic) 10,000 mmu cells PO DAILY supplement 09/30/23 calcium 600 mg (as carbonate)-vitamin D3 10 mcg (400 unit) tablet 1 tab PO DAILYsupplement 09/30/23 fluticasone fur. 200 mcg-umeclid 62.5 mcg-vilant 25 mcg inhalat.powder (Trelegy Ellipta) 1 ea inhalation DAILY breathing 09/30/23 multivitamin (Daily Multi-Vitamin tablet) 1 tab PO DAILY supplement 09/30/23 omeprazole 20 mg capsule,delayed release 20 mg PO DAILY acid reflux 09/30/23 hydralazine 25 mg tablet mg PO 10/26/24 ipratropium 0.5 mg-albuterol 3 mg (2.5 mg base)/3 mL nebulization soln 3 ml inhalation TID 10/26/24 magnesium 200 mg tablet 200 mg PO DAILY 10/26/24 metformin 500 mg tablet 500 mg PO BID 10/26/24 rosuvastatin 20 mg tablet 20 mg PO DAILY 10/26/24 amiodarone 200 mg tablet 200 mg PO TID #0 tabs 11/04/24 melatonin 10 mg disintegrating tablet 10 mg PO QHS #0 tabs 11/04/24 risperidone 0.5 mg tablet 0.5 mg PO QHS #0 tabs 11/04/24 acetaminophen 325 mg tablet 650 mg (2 x 325 mg) PO Q4H PRN PRN Fever, pain - 11/30 #0 tabs 11/06/24 budesonide 0.5 mg/2 mL suspension for nebulization 0.5 mg (2 mL) inhalation BID.RT #0 mL 11/06/24 cefdinir 300 mg capsule 300 mg PO BID #6 caps 11/06/24 food supplemt, lactose-reduced 0.08 gram-1.5 kcal/mL oral liquid (Ensure Plus High Protein) 120 ml PO TIDCM #0 mL 11/06/24 furosemide 20 mg tablet 40 mg (2 x 20 mg) PO DAILY PRN swelling #30 tabs 11/06/24 guaifenesin 600 mg tablet, extended release 12 hr (Mucinex) 1,200 mg (2 x 600 mg) PO BID #14 tabs 11/06/24 ipratropium bromide 0.02 % solution for inhalation 0.5 mg (2.5 mL) inhalation Q6HWA.RT #0 mL 11/06/24 metronidazole 500 mg tablet 500 mg PO TID 3 days #9 tabs 11/06/24 sennosides 8.6 mg-docusate sodium 50 mg tablet (Stimulant Laxative Plus) 2 tab PO BID #0 tabs 11/06/24 sodium chloride 0.65 % nasal spray aerosol (Deep Sea Nasal) 2 spray NASAL BID PRN PRN NASAL DRYNESS #0 mL 11/06/24 Physical Exam Narrative GENERAL: cooperative HEENT: Atraumatic; normocephalic EYES; Anicteric, Normal Conjunctiva NECK; supple, normal thyroid, RESPIRATORY: Diminished to auscultation CARDIOVASCULAR: Regular S1 S2, GI: soft, normoactive bowel sounds, : No Renal angle tenderness; EXTREMITIES: edema, no clubbing, MUSCULOSKELETAL: no muscle wasting NEURO: Awake; no lateralizing signs. SKIN: No Rash PSYCH; Flat affect Medical Records Data Homelessness:: Sheltered Weight / BMI Weight Weight: 98.5 kg Body Mass Index (BMI) 29.4 ABG / Lab / Microbiology Data 11/05/24 05:14 11/05/24 05:14 Microbiology: Microbiology 11/02/24 04:54 Sputum, Expectorated/Coughed Gram Stain - Final 11/02/24 04:54 Sputum, Expectorated/Coughed Respiratory Culture - Final Yeast, not Carine albicans 10/29/24 Unknown Fluid - Gallbladder Gram Stain - Final 10/29/24 Unknown Fluid - Gallbladder Body Fluid Culture - Final Escherichia coli Klebsiella oxytoca 10/29/24 Unknown Fluid - Gallbladder Anaerobic Culture - Final Anaerobic cocci Clostridium perfringens 10/26/24 15:55 Blood Culture (Wb) - Arm Right Blood Culture - Final No growth in 5 days. 10/26/24 15:55 Blood Culture (Wb) - Arm Left Blood Culture - Final No growth in 5 days. 10/27/24 09:24 Mucosa - Nasopharyngeal Coronavirus COVID-19 PCR - Final 10/27/24 01:25 Nasal Secretion MRSA (PCR) - Final 10/27/24 00:52 Mucosa - Nasopharyngeal Respiratory Panel (PCR) - Final 10/27/24 02:25 Urine, Random Legionella Antigen - Final 10/27/24 02:25 Urine, Random Streptococcus pneumoniae Antigen (M - Final D/C Instructions DC O2, CPAP, BIPAP Needs Home O2 Discharge instructions: No Meaningful Use Info Meaningful Use Meaningful Use Diagnoses (Choose all that apply): None applicable Discharge Plan Admission Admit Date/Time: 10/26/24 22:50 Attending Provider: Ilan Contreras Primary Care Provider: Dipak Aguilar Consulting Providers: Fernanda Triplett; hKai Bose; Cece Bella; Kenn Cavazos; Junito Knowles; Gerard Asencio; Genia Scott Instructions Patient Instructions: RAD RN Abscess Drainage, KENZIE RN Procedural Sedation Additional Instructions / Restrictions: 1. Please get an appointment within the next 2 weeks to follow-up with your urologist at [facility] Discharge Orders/Prescriptions Prescriptions: New amiodarone 200 mg Tablet 200 mg PO TID Qty: 0 0RF Rx Instructions: 200 mg 3 times daily until 11/07/2024 then decrease to 200 mg twice daily until 11/14/2024 then decrease to 200 mg daily and continue that indefinitely risperidone 0.5 mg Tablet 0.5 mg PO QHS Qty: 0 0RF melatonin 10 mg Tablet,Disintegrating 10 mg PO QHS Qty: 0 0RF acetaminophen 325 mg Tablet 650 mg PO Q4H PRN PRN (Reason: Fever, pain 1-11/30) Qty: 0 0RF sennosides-docusate sodium [Stimulant Laxative Plus] 8.6-50 mg Tablet 2 tab PO BID Qty: 0 0RF budesonide 0.5 mg/2 mL Suspension For Nebulization 0.5 mg inhalation BID.RT Qty: 0 0RF ipratropium bromide 0.02 % Solution 0.5 mg inhalation Q6HWA.RT Qty: 0 0RF Deep Sea Nasal 0.65 % Aerosol,[place] 2 spray NASAL BID PRN PRN (Reason: NASAL DRYNESS) Qty: 0 0RF Ensure Plus High Protein 0.08 gram-1.5 kcal/mL Liquid 120 ml PO TIDCM Qty: 0 0RF cefdinir 300 mg capsule 300 mg PO BID Qty: 6 0RF metronidazole 500 mg tablet 500 mg PO TID 3 Days Qty: 9 0RF guaifenesin [Mucinex] 600 mg tablet extended release 12hr 1,200 mg PO BID Qty: 14 0RF Continued cholecalciferol (vitamin D3) 50 mcg (2,000 unit) tablet 50 mcg PO DAILY tadalafil 5 mg tablet 5 mg PO DAILY apixaban 5 mg tablet 5 mg PO BID Qty: 180 3RF multivitamin Tablet 1 tab PO QWEEK omeprazole 40 MG capsule 20 mg PO DAILY albuterol sulfate 90 mcg/actuation aerosol powdr breath activated 1 puff PO Q6H Patient Comments: INHALE 1 PUFF BY MOUTH 4 TIMES DAILY NEEDED omeprazole 20 mg capsule,delayed release(DR/EC) 20 mg PO DAILY Trelegy Ellipta 200-62.5-25 mcg blister with device 1 ea inhalation DAILY calcium carbonate-vitamin D3 600 mg-10 mcg (400 unit) tablet 1 tab PO DAILY Probiotic 10 billion cell capsule 10,000 mmu cells PO DAILY multivitamin [Daily Multi-Vitamin] Tablet 1 tab PO DAILY rosuvastatin 20 mg tablet 20 mg PO DAILY metformin 500 mg tablet 500 mg PO BID hydralazine 25 mg tablet PO ipratropium-albuterol 0.5 mg-3 mg(2.5 mg base)/3 mL solution for nebulization 3 ml inhalation TID magnesium 200 mg tablet 200 mg PO DAILY Changed furosemide 20 mg tablet 40 mg PO DAILY PRN (Reason: swelling) Qty: 30 0RF Patient Comments: take as needed for swelling , or weight gain of 3 pounds in one day Discontinued metoprolol tartrate 50 mg tablet 50 mg PO BID Qty: 180 3RF metoprolol tartrate 50 mg tablet 50 mg PO BID Eliquis 5 mg tablet 5 mg PO BID losartan 100 mg tablet 100 mg PO DAILY Referrals / Follow Up: Florencio Trent MD [Med Staff - Active Staff] - Within 1 Month Dipak Aguilar DO [Primary Care Provider] - Disposition Disposition (needs filled in before D/C Order can be placed): Care Home Facility Charges/Coding Visit Charges Inpatient E&M: 40816 Disch Hosp >30min 11/06/24 0938 <Electronically signed by Ilan Contreras MD> Cosigner Signature (if applicable): CC: Dr. Ilan Contreras MD; Dr. Dipak Aguilar DO~ Signed [facility] Work Phone: [phone] Discharge summary Author Ilan Contreras [facility] Note Date/Time November 06, 2024 9:37am [facility] Medical Records Department [address] [place] [address] Transfer to [facility] MR#: [id number] Acct: [id number] Name: TAZ JOHNSON Rep #:[id number] : 1935 89 From: Ilan Contreras MD PCP: Dr. Dipak Aguilar DO Status:AD M IN Certification of patient admission REQUIRED AT TIME OF ADMISSION. I CERTIFY THAT POST-HOSPITAL ECF SERVICES ARE REQUIRED TO BE GIVEN ON AN IN-PATIENT BASIS BECAUSE OF THE ABOVE NAMED PATIENT'S NEED FOR [facility] CARE ON A CONTINUING BASIS FOR THE CONDITION(S) FOR WHICH HE/SHE WAS RECEIVING IN-PATIENT HOSPITAL SERVICES PRIOR TO HIS/HER TRANSFER TO THE F. 11/06/24 0937<Electronically signed by Ilan Contreras MD> Diet Diet Order/Speech Therapy: INPATIENT Hospital Diet / Speech Therapy Order(s) 11/01/24 11:42 Diet: Regular - General Food consistency:: Soft & Bite Sized Liquid Consistency:: Regular/Thin Type of Dietary Supplement:: 4ozChoc Ensure+ all meals Speech Therapy Comments: TOTAL FEED BY STAFF, LIQUID BY TSP W/ CHIN TUCK, ALTBITES/SIPS 1:1 DC O2, CPAP, BIPAP needs Home O2 Discharge instructions: No Wound(s) r abd: Wound Type: drain Therapies Physical Therapy: Eval and Treat Occupational Therapy: Eval and Treat Problem/Diagnosis (1) Acute cholecystitis: Status: Acute Code(s): K81.0 - Acute cholecystitis Plan Patient is an 89-year-old gentleman who has been on admission for 10 days. Admitted with sepsis secondary to acute cholecystitis as well as aspiration pneumonia. Patient has had a protracted stay complicated by encephalopathy 1. Sepsis ? Secondary to acute cholecystitis as well as suspected aspiration pneumonia andsepsis have since resolved 2. Acute cholecystitis ? Patient was deemed not a surgical candidate. Subsequently underwent Cholecystostomy tube. Cultures grew Klebsiella as well as E. coli ID recommended ceftriaxone as well as Flagyl 3. Aspiration pneumonia ? Managed with ceftriaxone and Flagyl 4. Acute hypoxic respiratory failure ? Due to combination of aspiration pneumonia as well as fluid overload management of aspiration pneumonia as discussed above patient also did receive IV Lasix and pulmonary toileting 5. 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 2D echo obtained did show EF of 70% with mildly enlarged left and right atriumwith trivial mitral valve insufficiency. The estimated ejection fraction is 70 %.Patient is on furosemide 6. Paroxysmal atrial fibrillation Managed with apixaban beta-blockers as well as amiodarone 7. Dysphagia - Acute on chronic seen in consultation by speech therapy family apparently informed about continuous risk for aspiration 8. Acute kidney injury ? Patient creatinine on 11/01/2024 was 1.06 creatinine up to 1.52 of note patienthas baseline CKD stage III. Will continue monitoring and avoid potential nephrotoxic medications 9. Acute metabolic encephalopathy ? Secondary to patient's sepsis as well as JENELLE appears to be resolving. 10. Diabetes mellitus type 2 ? Patient is on metformin at home held placed on Accu-Cheks AC and at bedtime with sliding scale coverage 11. Hypertension ? Blood pressure controlled, home medications continued with dose adjustment as needed 12. BPH with lower urinary obstructive symptoms - Patient did develop urinary retention Kern catheter placed patient started onFlomax with plans for patient to follow-up with primary urologist on discharge 13. Dyslipidemia ?Patient is on statin therapy, continued at home dose 14. 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 Patient is on apixaban 15. DVT prophylaxis ? On apixaban 16. Physical deconditioning ? Requested for PT OT eval and outreach and education social worker to assist with discharge planning Time spent in the patient's overall evaluation,decision-making process, review of diagnostic data, adjustment of management, discussion with other providers, nursing nursing and ancillary staff involved in patient's care documentation, 50 Minutes Allergies/Procedures Done in Hospital Allergies No Known Allergies Allergy (Verified 10/26/24 16:44) Type of Care/Length of Stay Estimated LOS: Convalescent Care Less Than 30 days Type of Care Needed: Skilled Rehab Potential: Good Prognosis: Good Additional Orders/Day of Discharge Day of Discharge: 11/06/24 Dietary and Speech Recommendations Dietitian Recommendations/Changes: Given inadequate oral intake at meals and well controlled blood glucose levels, will liberalize diet to Regular with consistency/texture as per [employer]. Will add 120mL chocolate ensure plus HP w/ meals. Will add fortified pudding w/ lunch tray. Will add magic cup w/ dinner tray. Discharge Plan Admission Admit Date/Time: 10/26/24 22:50 Attending Provider: Ilan Contreras Primary Care Provider: Dipak Aguilar Consulting Providers: Fernanda Triplett; Khai Bose; Cece Bella; Kenn Cavazos; Junito Knowles; Gerard Asencio; Genia Scott Instructions Patient Instructions: RAD RN Abscess Drainage, KENZIE RN Procedural Sedation Additional Instructions / Restrictions: 1. Please get an appointment within the next 2 weeks to follow-up with your urologist at [facility] Discharge Orders/Prescriptions Prescriptions: New amiodarone 200 mg Tablet 200 mg PO TID Qty: 0 0RF Rx Instructions: 200 mg 3 times daily until 11/07/2024 then decrease to 200 mg twice daily until 11/14/2024 then decrease to 200 mg daily and continue that indefinitely risperidone 0.5 mg Tablet 0.5 mg PO QHS Qty: 0 0RF melatonin 10 mg Tablet,Disintegrating 10 mg PO QHS Qty: 0 0RF acetaminophen 325 mg Tablet 650 mg PO Q4H PRN PRN (Reason: Fever, pain 1-11/30) Qty: 0 0RF sennosides-docusate sodium [Stimulant Laxative Plus] 8.6-50 mg Tablet 2 tab PO BID Qty: 0 0RF budesonide 0.5 mg/2 mL Suspension For Nebulization 0.5 mg inhalation BID.RT Qty: 0 0RF ipratropium bromide 0.02 % Solution 0.5 mg inhalation Q6HWA.RT Qty: 0 0RF Deep Sea Nasal 0.65 % Aerosol,[place] 2 spray NASAL BID PRN PRN (Reason: NASAL DRYNESS) Qty: 0 0RF Ensure Plus High Protein 0.08 gram-1.5 kcal/mL Liquid 120 ml PO TIDCM Qty: 0 0RF cefdinir 300 mg capsule 300 mg PO BID Qty: 6 0RF metronidazole 500 mg tablet 500 mg PO TID 3 Days Qty: 9 0RF guaifenesin [Mucinex] 600 mg tablet extended release 12hr 1,200 mg PO BID Qty: 14 0RF Continued cholecalciferol (vitamin D3) 50 mcg (2,000 unit) tablet 50 mcg PO DAILY tadalafil 5 mg tablet 5 mg PO DAILY apixaban 5 mg tablet 5 mg PO BID Qty: 180 3RF multivitamin Tablet 1 tab PO QWEEK omeprazole 40 MG capsule 20 mg PO DAILY albuterol sulfate 90 mcg/actuation aerosol powdr breath activated 1 puff PO Q6H Patient Comments: INHALE 1 PUFF BY MOUTH 4 TIMES DAILY NEEDED omeprazole 20 mg capsule,delayed release(DR/EC) 20 mg PO DAILY Trelegy Ellipta 200-62.5-25 mcg blister with device 1 ea inhalation DAILY calcium carbonate-vitamin D3 600 mg-10 mcg (400 unit) tablet 1 tab PO DAILY Probiotic 10 billion cell capsule 10,000 mmu cells PO DAILY multivitamin [Daily Multi-Vitamin] Tablet 1 tab PO DAILY rosuvastatin 20 mg tablet 20 mg PO DAILY metformin 500 mg tablet 500 mg PO BID hydralazine 25 mg tablet PO ipratropium-albuterol 0.5 mg-3 mg(2.5 mg base)/3 mL solution for nebulization 3 ml inhalation TID magnesium 200 mg tablet 200 mg PO DAILY Changed furosemide 20 mg tablet 40 mg PO DAILY PRN (Reason: swelling) Qty: 30 0RF Patient Comments: take as needed for swelling , or weight gain of 3 pounds in one day Discontinued metoprolol tartrate 50 mg tablet 50 mg PO BID Qty: 180 3RF metoprolol tartrate 50 mg tablet 50 mg PO BID Eliquis 5 mg tablet 5 mg PO BID losartan 100 mg tablet 100 mg PO DAILY Referrals / Follow Up: Florencio Trent MD [Med Staff - Active Staff] - Within 1 Month Dipak Aguilar DO [Primary Care Provider] - Disposition Disposition (needs filled in before D/C Order can be placed): Care Home Facility 11/06/24 0937 <Electronically signed by Ilan Contreras MD> Cosigner Signature (if applicable): CC: Dr. Fernanda Triplett MD; Dr. Dipak Aguilar DO; Dr. Gerard Asencio MD; Dr. Genia Scott DO; Dr. Cece Bella MD; Dr. Khai Bose MD; Dr. Junito Knowles MD; Dr. Kenn Cavazos MD ~ [facility] Work Phone: [phone] Progress note Author Kylee Rodriguez [facility] Note Date/Time November 06, 2024 7:55am [facility] Medical Records Department [address] [place] [address] Progress Note - Surgery 11/06/24709 MR#: [id number] Acct: [id number] Name: TAZ JOHNSON Rep #:[id number] : 1935 89 From: Kylee FLOYD PA-C PCP: Dr. Dipak Aguilar DO Status:AD M IN Location: [place] [address] Subjective Subjective Patient evaluated resting comfortably in bed. His is at bedside. Patient denies any right upper quadrant pain. Objective Data Objective Data Vital Signs: Vital Signs Temp Pulse Resp BP Pulse Ox O2 Del Method O2 Flow Rate 97.4 F L 79 20 H 126/66 H 94 Nasal Cannula 2 11/06/24 06:16 11/06/24 07:07 11/06/24 07:07 11/06/24 06:32 11/06/24 07:07 11/06/24 07:07 11/06/24 07:07 FiO2 35 11/03/24 12:00 Oxygen Flow Rate (L/min) 2 Oxygen Delivery Method Nasal Cannula Weight: 217 lb 2.485 oz Body Mass Index (BMI) 29.4 Intake & Output: Intake and Output for Last 24 Hours 11/04/24 11/05/24 11/06/24 23:59 23:59 23:59 Intake Total 525 / 525 570 / 570 Output Total 1720 / 1720 1710 / 1710 210 / 210 Balance -1195 / -1195 -1140 / -1140 -210 / -210 Lab / Micro Data 11/05/24 05:14 11/05/24 05:14 Micro: Microbiology 11/02/24 04:54 Sputum, Expectorated/Coughed Gram Stain - Final 11/02/24 04:54 Sputum, Expectorated/Coughed Respiratory Culture - Final Yeast, not Carine albicans 10/29/24 Unknown Fluid - Gallbladder Gram Stain - Final 10/29/24 Unknown Fluid - Gallbladder Body Fluid Culture - Final Escherichia coli Klebsiella oxytoca 10/29/24 Unknown Fluid - Gallbladder Anaerobic Culture - Final Anaerobic cocci Clostridium perfringens 10/26/24 15:55 Blood Culture (Wb) - Arm Right Blood Culture - Final No growth in 5 days. 10/26/24 15:55 Blood Culture (Wb) - Arm Left Blood Culture - Final No growth in 5 days. 10/27/24 09:24 Mucosa - Nasopharyngeal Coronavirus COVID-19 PCR - Final 10/27/24 01:25 Nasal Secretion MRSA (PCR) - Final 10/27/24 00:52 Mucosa - Nasopharyngeal Respiratory Panel (PCR) - Final 10/27/24 02:25 Urine, Random Legionella Antigen - Final 10/27/24 02:25 Urine, Random Streptococcus pneumoniae Antigen (M - Final Rhythm Strip Rhythm Strip: A-fib Rate: 90 Social Homelessness:: Sheltered Physical Exam GI GI Narrative: Abdomen- soft, nontender. Cholecystostomy tube in place with bilious fluid within the bulb. Assessment & Plan Assessment/Plan (1) Acute cholecystitis: PLAN: I am following this patient in conjunction with Dr. Cavazos. Continue IV antibiotics according to I.D recommendation Awaiting pre-cert for acceptance to TCU Dr. Cavazos will follow-up with the patient in 1-2 weeks to discuss future treatment plan We will continue to monitor patient as needed Charges/Coding Visit Charges Inpatient E&M: 56324 Subs Hosp L2 11/06/24 5772 <Electronically signed by Kylee FLOYD PA-C> Cosigner Signature (if applicable): CC: ~ Signed [facility] Work Phone: [phone]) [phone] Progress note Author Juinto Knowles [facility] Note Date/Time November 05, 2024 11:57am [facility] Medical Records Department [address] [place] [address] Progress Note - Infect Disease 11/05/24 1156 MR#: [id number] Acct: [id number] Name: TAZ JOHNSON Rep #:[id number] : 1935 89 From: Junito eastman MD PCP: Dr. Dipak Aguilar, DO Status:AD M IN Location: [place] [address] Physical Exam Narrative Feeling better, no fever, no abd pain, no n/v/d. Const no apparent distress General Appearance: cooperative Orientation / Consciousness: lethargic Resp Auscultation: rhonchi Cardio regular rate and regular rhythm GI soft to palpation, non-tender and non-distended Skin no rashes or lesions noted ID ID: Route of nutrition/ use of supplements: [] Nutritional Intake: [] IV Site: [] Kern Catheter: [] Assessment & Plan Assessment/Plan (1) Sepsis: (2) Acute cholecystitis: PLAN: Overall improved. Akash tube in place, surgery following. Recommend ceftriaxone and flagyl for now. Plan on 7 more days abx, stop date 11/08/24. Can change to po at discharge if he is able to tolerate. More awake today. Will follow 11/05/24 1156 <Electronically signed by Junito Knowles MD> Cosigner Signature (if applicable): CC: ~ Signed [facility] Work Phone: [phone] [facility] Date/Time November 05, 2024 11:33am [facility] Medical Records Department [address] [place] [address] Progress Note - Hospitalist 11/05/24 1039 MR#: [id number] Acct: [id number] Name: TAZ JOHNSON Rep #:[id number] : 1935 89 From: Ilan Contreras MD PCP: Dr. Dipak Aguilar, DO Status:AD M IN Location: [place] [address] Reason for Visit Chief Complaint: Abdominal pain, N/V. Subjective Subjective Patient is an 89-year-old gentleman who has been on admission for 10 days. Admitted with sepsis secondary to acute cholecystitis as well as aspiration pneumonia. Patient has had a protracted stay complicated by encephalopathy Objective Data Objective Data Vital Signs: Vital Signs Temp Pulse Resp BP Pulse Ox O2 Del Method O2 Flow Rate 98.0 F 72 20 H 153/88 H 95 Nasal Cannula 2 11/05/24 08:22 11/05/24 08:22 11/05/24 08:22 11/05/24 08:22 11/05/24 08:22 11/05/24 08:34 11/05/24 08:34 FiO2 35 11/03/24 12:00 Oxygen Flow Rate (L/min) 2 Oxygen Delivery Method Nasal Cannula Weight: 98.5 kg Body Mass Index (BMI) 29.4 Intake & Output: Intake and Output for Last 24 Hours 11/03/24 11/04/24 11/05/24 23:59 23:59 23:59 Intake Total 575.08 / 575.08 525 / 525 100 / 100 Output Total 2480 / 3280 1720 / 1720 415 / 415 Balance -1904.92 / -2704.92 -1195 / -1195 -315 / -315 Lab / Micro Data 11/05/24 05:14 11/05/24 05:14 Labs: Laboratory Results - last 24 hr 11/04/24 10:40: POC Glucose 90 11/04/24 15:59: POC Glucose 114 H 11/04/24 21:42: POC Glucose 106 11/05/24 05:14: WBC 13.8 H, RBC 3.97 L, Hgb 11.7 L, Hct 35.0 L, MCV 88.2, MCH 29.5, MCHC 33.4, RDW Std Deviation 49.2 H, RDW Coeff of Pollo 15.4 H, Plt Count 225, MPV 10.1, Neut % (Auto) Not Reportable, Absolute Neuts (auto) 12.1 H, Absolute Lymphs (auto) 0.97, Total Counted 100, Neutrophils % (Manual) 86 H, Band Neutrophils % 2, Lymphocytes % (Manual) 7 L, Monocytes % (Manual) 2, Eosinophils % (Manual) 1, Metamyelocytes % 1, Myelocytes % 1 H, Platelet Estimate ADEQUATE, RBC Morphology NORM C+C, Sodium 141, Potassium 3.4, Chloride 105, Carbon Dioxide 26.5, Anion Gap 10, BUN 22 H, Creatinine 1.52 H, Estim CreatClear Calc 40.84 L, Est GFR (MDRD) Non-Af 44 L, BUN/Creatinine Ratio 14.5, Glucose 93, Calcium 9.3 11/05/24 06:26: POC Glucose 87 Micro: Microbiology 11/02/24 04:54 Sputum, Expectorated/Coughed Gram Stain - Final 11/02/24 04:54 Sputum, Expectorated/Coughed Respiratory Culture - Final Yeast, not Carine albicans 10/29/24 Unknown Fluid - Gallbladder Gram Stain - Final 10/29/24 Unknown Fluid - Gallbladder Body Fluid Culture - Final Escherichia coli Klebsiella oxytoca 10/29/24 Unknown Fluid - Gallbladder Anaerobic Culture - Final Anaerobic cocci Clostridium perfringens 10/26/24 15:55 Blood Culture (Wb) - Arm Right Blood Culture - Final No growth in 5 days. 10/26/24 15:55 Blood Culture (Wb) - Arm Left Blood Culture - Final No growth in 5 days. 10/27/24 09:24 Mucosa - Nasopharyngeal Coronavirus COVID-19 PCR - Final 10/27/24 01:25 Nasal Secretion MRSA (PCR) - Final 10/27/24 00:52 Mucosa - Nasopharyngeal Respiratory Panel (PCR) - Final 10/27/24 02:25 Urine, Random Legionella Antigen - Final 10/27/24 02:25 Urine, Random Streptococcus pneumoniae Antigen (M - Final Rhythm Strip Rhythm Strip: A-fib Rate: 90 Social Homelessness:: Sheltered Physical Exam Narrative GENERAL: cooperative HEENT: Atraumatic; normocephalic EYES; Anicteric, Normal Conjunctiva NECK; supple, normal thyroid, RESPIRATORY: Diminished to auscultation CARDIOVASCULAR: Regular S1 S2, GI: soft, normoactive bowel sounds, : No Renal angle tenderness; EXTREMITIES: edema, no clubbing, MUSCULOSKELETAL: no muscle wasting NEURO: Awake; no lateralizing signs. SKIN: No Rash PSYCH; Flat affect Assessment & Plan Assessment/Plan (1) Sepsis: (2) Acute cholecystitis: PLAN: Plan Patient is an 89-year-old gentleman who has been on admission for 10 days. Admitted with sepsis secondary to acute cholecystitis as well as aspiration pneumonia. Patient has had a protracted stay complicated by encephalopathy 1. Sepsis ? Secondary to acute cholecystitis as well as suspected aspiration pneumonia andsepsis have since resolved 2. Acute cholecystitis ? Patient was deemed not a surgical candidate. Subsequently underwent Cholecystostomy tube. Cultures grew Klebsiella as well as E. coli ID recommended ceftriaxone as well as Flagyl 3. Aspiration pneumonia ? Managed with ceftriaxone and Flagyl 4. Acute hypoxic respiratory failure ? Due to combination of aspiration pneumonia as well as fluid overload management of aspiration pneumonia as discussed above patient also did receive IV Lasix and pulmonary toileting 5. 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 2D echo obtained did show EF of 70% with mildly enlarged left and right atriumwith trivial mitral valve insufficiency. The estimated ejection fraction is 70 %.Patient is on furosemide 6. Paroxysmal atrial fibrillation Managed with apixaban beta-blockers as well as amiodarone 7. Dysphagia - Acute on chronic seen in consultation by speech therapy family apparently informed about continuous risk for aspiration 8. Acute kidney injury ? Patient creatinine on 11/01/2024 was 1.06 creatinine up to 1.52 of note patienthas baseline CKD stage III. Will continue monitoring and avoid potential nephrotoxic medications 9. Acute metabolic encephalopathy ? Secondary to patient's sepsis as well as JENELLE appears to be resolving. 10. Diabetes mellitus type 2 ? Patient is on metformin at home held placed on Accu-Cheks AC and at bedtime with sliding scale coverage 11. Hypertension ? Blood pressure controlled, home medications continued with dose adjustment as needed 12. BPH with lower urinary obstructive symptoms - Patient did develop urinary retention Kern catheter placed patient started onFlomax with plans for patient to follow-up with primary urologist on discharge 13. Dyslipidemia ?Patient is on statin therapy, continued at home dose 14. 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 Patient is on apixaban 15. DVT prophylaxis ? On apixaban 16. Physical deconditioning ? Requested for PT OT eval and outreach and education social worker to assist with discharge planning Time spent in the patient's overall evaluation,decision-making process, review of diagnostic data, adjustment of management, discussion with other providers, nursing nursing and ancillary staff involved in patient's care documentation, 50 Minutes Charges/Coding Visit Charges Inpatient E&M: 39340 Subs Hosp L3 Date medically ready for discharge: 11/02/24 Delay Comments: Awaiting acceptance from transitional care unit then will need [id number] due to IV Haldol being given 11/05/24 1136 <Electronically signed by Ilan Contreras MD> Cosigner Signature (if applicable): CC: ~ Signed [facility] Work Phone: [phone]) 211-776609-14-2025 Progress note Author Genia Scott [facility] Note Date/Time November 04, 2024 1:15pm [facility] Medical Records Department [address] [place] [address] Progress Note - Hospitalist 11/04/24 1305 MR#: [id number] Acct: [id number] Name: TAZ JOHNSON Rep #:[id number] : 1935 89 From: Genia Scott DO PCP: Dr. Dipak Aguilar, DO Status:AD M IN Location: [place] [address] Reason for Visit Chief Complaint: Abdominal pain, N/V. Subjective Subjective Patient states he feels like he has to have a bowel movement and cannot. He is already on Dulcolax suppositories and scheduled senna. Suppository just placed so he is waiting to have a bowel movement. Breathing seems to be better overall. No other complaints at this time. Family states that his nights have been much improved since starting the risperidone and the melatonin.. Objective Data Objective Data Vital Signs: Vital Signs Temp Pulse Resp BP Pulse Ox O2 Del Method O2 Flow Rate 98.0 F 108 H 18 113/67 93 Nasal Cannula 2 11/04/24 09:54 11/04/24 09:54 11/04/24 09:54 11/04/24 09:54 11/04/24 09:54 11/04/24 09:54 11/04/24 09:54 FiO2 35 11/03/24 12:00 Oxygen Flow Rate (L/min) 2 Oxygen Delivery Method Nasal Cannula Weight: 99.1 kg Body Mass Index (BMI) 29.6 Intake & Output: Intake and Output for Last 24 Hours 11/02/24 11/03/24 11/04/24 23:59 23:59 23:59 Intake Total 1617.5 / 1617.5 575.08 / 575.08 150 / 150 Output Total 930 / 930 2480 / 3280 1340 / 1340 Balance 687.5 / 687.5 -1904.92 / -2704.92 -1190 / -1190 Lab / Micro Data 11/04/24 07:42 11/04/24 07:42 Labs: Laboratory Results - last 24 hr 11/03/24 17:41: POC Glucose 100 11/03/24 21:51: POC Glucose 105 11/04/24 06:08: POC Glucose 90 11/04/24 07:42: WBC 14.9 H, RBC 4.26 L, Hgb 12.8 L, Hct 37.0 L, MCV 86.9, MCH 30.0, MCHC 34.6, RDW Std Deviation 49.4 H, RDW Coeff of Pollo 15.7 H, Plt Count 206, MPV 10.0, Neut % (Auto) Not Reportable, Absolute Neuts (auto) 13.0 H, Absolute Lymphs (auto) 0.75 L, Total Counted 100, Neutrophils % (Manual) 85 H, Band Neutrophils % 2, Lymphocytes % (Manual) 5 L, Monocytes % (Manual) 4, Eosinophils % (Manual) 2, Metamyelocytes % 2 H, Platelet Estimate ADEQUATE, RBC Morphology NORM C+C, Sodium 141, Potassium 3.5, Chloride 106, Carbon Dioxide 23.6, Anion Gap 12, BUN 22 H, Creatinine 1.41 H, Estim Creat Clear Calc 44.15 L,Est GFR (MDRD) Non-Af 48 L, BUN/Creatinine Ratio 15.3, Glucose 92, Calcium 9.4, Total Bilirubin 0.79, AST 43 H, ALT 49 H, Alkaline Phosphatase 185 H, Total Protein 5.5 L, Albumin 2.6 L, Globulin 2.9, Albumin/Globulin Ratio 0.9 11/04/24 10:40: POC Glucose 90 Micro: Microbiology 11/02/24 04:54 Sputum, Expectorated/Coughed Gram Stain - Final 11/02/24 04:54 Sputum, Expectorated/Coughed Respiratory Culture - Preliminary Yeast Like Organism 10/29/24 Unknown Fluid - Gallbladder Gram Stain - Final 10/29/24 Unknown Fluid - Gallbladder Body Fluid Culture - Final Escherichia coli Klebsiella oxytoca 10/29/24 Unknown Fluid - Gallbladder Anaerobic Culture - Final Anaerobic cocci Clostridium perfringens 10/26/24 15:55 Blood Culture (Wb) - Arm Right Blood Culture - Final No growth in 5 days. 10/26/24 15:55 Blood Culture (Wb) - Arm Left Blood Culture - Final No growth in 5 days. 10/27/24 09:24 Mucosa - Nasopharyngeal Coronavirus COVID-19 PCR - Final 10/27/24 01:25 Nasal Secretion MRSA (PCR) - Final 10/27/24 00:52 Mucosa - Nasopharyngeal Respiratory Panel (PCR) - Final 10/27/24 02:25 Urine, Random Legionella Antigen - Final 10/27/24 02:25 Urine, Random Streptococcus pneumoniae Antigen (M - Final Rhythm Strip Rhythm Strip: A-fib Rate: 90 Social Homelessness:: Sheltered Physical Exam Const alert, no apparent distress and well nourished; Negative for oriented x3, average body habitus or healthy appearing Constitutional Narrative: Overweight, elderly, white male, sitting up in a chair at the bedside awake andinteractive, and daughter are at the bedside, appears uncomfortable as he is waiting to have bowel movement, nontoxic, oriented times self and intermittently place but not time follows commands consistently HEENT head/scalp atraumatic and moist oral mucous membranes Head and Scalp: normocephalic Eyes Eyes Narrative: No scleral icterus Resp normal respiratory effort, no retractions, no use of accessory muscles and No clear to auscultation bilaterally Resp Narrative: Few remaining crackles in the left base Auscultation: crackles; Negative for rales, rhonchi or wheezes Cardio regular rate, S1 normal heart sound, S2 normal heart sound, no murmurs, no rub, no gallops and no clicks Cardio Narrative: Irregular irregular GI normal to inspection, nondistended, normoactive bowel sounds, soft to palpation and non-tender GI Narrative: PERI drain with nonpurulent fluid Extremity Extremity Narrative: Chronic lower extremity edema, no cyanosis or clubbing, left upper extremity edema-this appears to be improving slowly Neuro moves all extremities and no focal motor deficits Neuro Narrative: Significant generalized weakness-proximal greater than distal noted Speech: speech normal Psych affect normal Psych Narrative: Pleasant, no signs of agitation or anxiety Assessment & Plan Assessment/Plan (1) Sepsis: (2) Acute cholecystitis: PLAN: Plan Sepsis secondary to acute cholecystitis/possible aspiration pneumonia - Status post percutaneous colostomy tube - Continue antimicrobials with ceftriaxone and Flagyl per infectious disease - Per infectious disease will need antibiotics through 11/08/2024 and can be transition to oral at discharge if p.o. intake is adequate - Perc drain per general surgery with outpatient follow-up - Currently not surgical candidate but will follow from surgical standpoint to see if he would be a candidate in the future - Sepsis syndrome has resolved - Discussed with general surgery Acute hypoxic respiratory failure - Patient with issue overnight suspect related to possible aspiration and volumeoverload from sepsis treatment -Was given IV Lasix x 1 dose and seems to be doing better - Currently on room air to 2 L -Continue to wean as able - Recommend ongoing aggressive pulmonary toilet - Discussed with to push him for incentive spirometry and Acapella however she states this is difficult - Continue speech therapy as recurrent aspiration is going to be an ongoing concern - Will restart home Lasix and monitor renal function closely - Family is very aware that he has increased risk for recurrent aspiration pneumonia Edema - Predominantly left upper extremity-slowly improving with diuresis - Dopplers are unremarkable - Likely related to volume resuscitation with sepsis - Continue p.o. Lasix 40 mg daily and watch renal function closely Dysphagia - Acute on chronic - Continue modified diet per speech therapy - The patient does struggle with complying to utilize strategies to prevent aspiration and therefore extremely high risk for recurrent aspiration pneumonitis and pneumonia - Continue speech therapy intervention now and at discharge to transitional careunit - At significant risk for recurrent aspiration pneumonia-discussed with patient,, and daughter today at the bedside Atrial fibrillation with RVR - Cardiology is following-appreciate input - Continue apixaban and beta-mattie - Heart rates better after amiodarone bolus -Currently on oral amiodarone 3 times daily which we will continue for total of 7 days, then amiodarone 200 twice daily for 7 days then amiodarone daily - Continue to monitor on telemetry - Will need outpatient cardiology follow-up after discharge CKD stage IIIb - Baseline creatinine seems to run between 1.3 and 1.5 - Continue to monitor with ongoing diuresis - avoid nephrotoxins as able Toxic/metabolic encephalopathy with underlying dementia - Seems to be at baseline - Continue scheduled risperidone and melatonin -Seems to be doing well with this regimen and would recommend discharge to TCU with these--> orders placed on MAR - Slowly improving CKD stage IIIa - Serum creatinine is stable Urinary retention - Patient will need to maintain Kern at the time of discharge per discussion with urology - Patient is to follow-up outpatient with his primary urologist in [place]--> Dr. Issa--> discussed with patient and family and instructions placed in discharge orders DM-2 - Hold oral regimen is on hold next-continue Accu-Cheks as ordered - Continue SSI - A1c was 6.3 - Fasting blood sugar shows good control at 92 Essential hypertension - Beta-mattie as ordered - Reassess in a.m. 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 PPI as ordered History of tobacco abuse - Remote DVT prophylaxis - Continue Eliquis CODE STATUS - Full code as verified on admission - Hospice and palliative care was consulted and was dismissed by the family Charges/Coding Visit Charges Inpatient E&M: 47999 Subs Hosp L2 Date medically ready for discharge: 11/02/24 Delay Comments: Awaiting acceptance from transitional care unit then will need [id number] due to IV Haldol being given 11/04/24 1315 <Electronically signed by Genia Scott DO> Cosigner Signature (if applicable): CC: ~ Signed [facility] Work Phone: [phone]) 448-336009-13-2025 Progress note Author Genia Scott [facility] Note Date/Time November 03, 2024 1:17pm [facility] Medical Records Department [address] [place] [id number] Progress Note - Hospitalist 11/03/24 0721 MR#: [id number] Acct: [id number] Name: TAZ JOHNSON Rep #:[id number] : 1935 89 From: Genia Scott DO PCP: Dr. Dipak Aguilar, DO Status:AD M IN Location: [place] [address] Reason for Visit Chief Complaint: Abdominal pain, N/V. Subjective Subjective Issues from overnight noted. Oxygen has been able to be weaned. No complaints. Patient did tolerate BiPAP well. Objective Data Objective Data Vital Signs: Vital Signs Temp Pulse Resp BP Pulse Ox O2 Del Method O2 Flow Rate 97 F L 84 24 H 131/69 H 97 Bi-pap 4 11/03/24 02:00 11/03/24 06:13 11/03/24 05:00 11/03/24 06:13 11/03/24 05:00 11/03/24 05:00 11/02/24 22:25 FiO2 35 11/03/24 05:00 Oxygen Flow Rate (L/min) 4 Oxygen Delivery Method Bi-pap Weight: 102 kg Body Mass Index (BMI) 30.4 Intake & Output: Intake and Output for Last 24 Hours 11/01/24 11/02/24 11/03/24 23:59 23:59 23:59 Intake Total 2550 / 2550 1617.5 / 1617.5 Output Total 1330 / 1330 930 / 930 1800 / 1800 Balance 1220 / 1220 687.5 / 687.5 -1770 / -1770 Lab / Micro Data 11/03/24 05:40 11/03/24 05:40 Labs: Laboratory Results - last 24 hr 11/02/24 07:41: POC Glucose 96 11/02/24 11:19: POC Glucose 121 H 11/02/24 15:57: POC Glucose 108 H 11/02/24 21:50: POC Glucose 109 H 11/02/24 23:22: NT pro BNP II 6060 H 11/03/24 05:40: WBC 16.4 H, RBC 4.45 L, Hgb 13.0, Hct 38.7 L, MCV 87.0, MCH 29.2, MCHC 33.6, RDW Std Deviation 49.1 H, RDW Coeff of Pollo 15.4 H, Plt Count 197, MPV 10.0, Sodium 142, Potassium 3.9, Chloride 108, Carbon Dioxide 21.7, Anion Gap 13, BUN 18, Creatinine 1.37 H, Estim Creat Clear Calc 46.05 L, Est GFR(MDRD) Non-Af 50 L, BUN/Creatinine Ratio 13.4, Glucose 107 H, Calcium 9.1, Phosphorus 3.1, Magnesium 1.7 11/03/24 06:09: POC Glucose 102 Micro: Microbiology 11/02/24 04:54 Sputum, Expectorated/Coughed Gram Stain - Final 10/29/24 Unknown Fluid - Gallbladder Gram Stain - Final 10/29/24 Unknown Fluid - Gallbladder Body Fluid Culture - Final Escherichia coli Klebsiella oxytoca 10/29/24 Unknown Fluid - Gallbladder Anaerobic Culture - Final Anaerobic cocci Clostridium perfringens 10/26/24 15:55 Blood Culture (Wb) - Arm Right Blood Culture - Final No growth in 5 days. 10/26/24 15:55 Blood Culture (Wb) - Arm Left Blood Culture - Final No growth in 5 days. 10/27/24 09:24 Mucosa - Nasopharyngeal Coronavirus COVID-19 PCR - Final 10/27/24 01:25 Nasal Secretion MRSA (PCR) - Final 10/27/24 00:52 Mucosa - Nasopharyngeal Respiratory Panel (PCR) - Final 10/27/24 02:25 Urine, Random Legionella Antigen - Final 10/27/24 02:25 Urine, Random Streptococcus pneumoniae Antigen (M - Final ABG Data ABG results: ABG 11/02/24 22:39 Specimen Type ART Sample Site R Radial pH 7.48 H Bicarbonate Actual 24.2 Total CO2 25 Base Excess 1 O2 Saturation 96 O2 % 40.0 ABG pCO2 32.8 L ABG pO2 78 Richard Test Positive Respiration Rate 12 O2 Delivery Device BiPAP Vent Mode Not entered POC PEEP 6 Peak Inspir Pressure 12 Radiography Diagnostic Testing: Radiology Impression Venous Doppler Study 11/02/24 11:07 Interpretation Summary Deep veins of the upper extremities are bilaterally patent and compressible segmentally. There is no evidence of deep vein thrombosis on either side. Acute superficial thrombophlebitis is noted in the right cephalic vein at wrist level. The remainder of the right cephalic vein is patent and compressible. The right basilic vein is patent and compressible. The superficial veins of the left upper extremity, the basilic and cephalic veins, are patent and compressible. There is no evidence of left upper extremity superficial thrombophlebitis involving the veins imaged. Ordering Physician: Genia Scott Referring Physician: Dipak Aguilar Performed By: Massiel Martinez, ANUPAMA, RVT ??? Chest X-Ray 11/02/24 22:00 IMPRESSION: No significant interval change. Reading Location: [facility] Rhythm Strip Rhythm Strip: A-fib Rate: 90 Social Homelessness:: Sheltered Physical Exam Const alert, no apparent distress and well nourished; Negative for oriented x3, average body habitus or healthy appearing Constitutional Narrative: Overweight, elderly, white male, sitting up in a chair at the bedside awake andinteractive, is at the bedside, appears comfortable, nontoxic, oriented times self and intermittently place but not time follows commands consistently HEENT head/scalp atraumatic and moist oral mucous membranes Head and Scalp: normocephalic Eyes conjunctivae normal Eyes Narrative: No scleral icterus Resp normal respiratory effort, no retractions, no use of accessory muscles and clearto auscultation bilaterally Resp Narrative: Crackles in the left base Auscultation: crackles; Negative for rales, rhonchi or wheezes Cardio S1 normal heart sound, S2 normal heart sound, no murmurs, no rub, no gallops andno clicks Cardio Narrative: Irregular irregular with controlled rate currently GI normal to inspection, nondistended, normoactive bowel sounds, soft to palpation and non-tender GI Narrative: PERI drain with nonpurulent fluid Extremity Extremity Narrative: Chronic lower extremity edema, no cyanosis or clubbing, left upper extremity edema Neuro moves all extremities and no focal motor deficits Neuro Narrative: Significant generalized weakness-proximal greater than distal noted Speech: speech normal Psych affect normal Psych Narrative: Pleasant, no signs of agitation or anxiety Assessment & Plan Assessment/Plan (1) Sepsis: (2) Acute cholecystitis: PLAN: Plan Sepsis secondary to acute cholecystitis/possible aspiration pneumonia - Status post percutaneous colostomy tube - Continue antimicrobials with ceftriaxone and Flagyl per infectious disease - Per infectious disease will need antibiotics through 11/08/2024 and can be transition to oral at discharge if p.o. intake is adequate - Perc drain per general surgery with outpatient follow-up - Currently not surgical candidate but will follow from surgical standpoint to see if he would be a candidate in the future - Sepsis syndrome has resolved - Discussed with general surgery Acute hypoxic respiratory failure - Patient with issue overnight suspect related to possible aspiration and volumeoverload from sepsis treatment -Was given IV Lasix x 1 dose and seems to be doing better -Was on 3 L at the time my arrival with sats at 96 to 97% so therefore decreasedto 2 L -Continue to wean as able - Recommend ongoing aggressive pulmonary toilet - Discussed with to push him for incentive spirometry and Acapella however she states this is difficult - Continue speech therapy as recurrent aspiration is going to be an ongoing concern - Will restart home Lasix and monitor renal function closely Edema - Predominantly left upper extremity - Dopplers are unremarkable - Likely related to volume resuscitation with sepsis Dysphagia - Acute on chronic - Continue modified diet per speech therapy - The patient does struggle with complying to utilize strategies to prevent aspiration and therefore extremely high risk for recurrent aspiration pneumonitis and pneumonia - Continue speech therapy intervention now and at discharge to transitional careunit Atrial fibrillation with RVR - Cardiology is following-appreciate input - Continue apixaban and beta-mattie - Heart rates better after amiodarone bolus -Currently on oral amiodarone 3 times daily which we will continue for total of 7 days, then amiodarone 200 twice daily for 7 days then amiodarone daily - Continue to monitor on telemetry - Will need outpatient cardiology follow-up after discharge CKD stage IIIb - Baseline creatinine seems to run between 1.3 and 1.5 - Had dropped some with volume resuscitation but back up to baseline with diuretics last night - Continue to monitor as we have added back scheduled oral diuretics - avoid nephrotoxins as able Hypomagnesemia/hypophosphatemia - Resolved Toxic/metabolic encephalopathy with underlying dementia - Seems to be at baseline - Continue scheduled risperidone and melatonin -Seems to be doing well with this regimen and would recommend discharge to TCU with these - Slowly improving CKD stage IIIa - Serum creatinine is stable Urinary retention - Patient will need to maintain Kern at the time of discharge per discussion with urology - Patient is to follow-up outpatient with his primary urologist in [place]--> Dr. Issa DM-2 - Hold oral regimen is on hold next-continue Accu-Cheks as ordered - Continue SSI - A1c was 6.3 - Fasting blood sugar shows good control at 136 Essential hypertension - Beta-mattie as ordered - Reassess in a.m. 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 PPI as ordered History of tobacco abuse - Remote DVT prophylaxis - Continue Eliquis CODE STATUS - Full code as verified on admission - Hospice and palliative care was consulted and was dismissed by the family Charges/Coding Visit Charges Inpatient E&M: 59256 Subs Hosp L2 Date medically ready for discharge: 11/02/24 Delay Comments: Awaiting acceptance from transitional care unit then will need [id number] due to IV Haldol being given 11/03/24 1317 <Electronically signed by Genia Scott DO> Cosigner Signature (if applicable): CC: ~ Signed [facility] Work Phone: [phone]) 135-992309-13-2025 Progress note Author Arlin Paniagua [facility] Note Date/Time November 02, 2024 11:00pm [facility] Medical Records Department [address] [place] [address] Progress Note - Hospitalist 11/02/241 MR#: [id number] Acct: [id number] Name: TAZ JOHNSON Rep #:[id number] : 1935 89 From: Arlin Meraz PCP: Dr. Dipak Aguilar, DO Status:AD M IN Location: [place] [address] Hospitalist Note 2224 While rounding, noted telemetry alarming for severe tachycardia and Afib with ventricular rate of 165. Assessed pt and found coarse rales throughout as well as oral secretions pocketed, cleared with yankeur sxn. Bedside RN placed him on oxygen via NC due to p.ox 83% on RmAir, RR 32, BP 160/118. STAT portable CXR done, image reviewed at bedside by myself with pulmonary congestion without effusion, placed orders for 40mg furosemide IV x1, BiPAP, ABG, pro-BNP. No acuteor chronic renal dysfunction noted on labs, echo completed this admission demonstrated EF 70%, trivial mitral valve insufficiency, right and left atria are mildly enlarged. Pt just received HS meds including: metoprolol 50mg, amiodarone 200mg. Pt received PRN metoprolol 5mg IV at 1855. Reviewed all information with Dr. Mcclure, who then advised digoxin 500mcg IV x1, giving 250mcg now and waiting 10minutes to give remaining 250mcg. Pt's at bedside,discussed care/interventions at length. Her only question was regarding an ultrasound done on his edematous upper extremity earlier today which has not resulted. 2240 ABG results reviewed, grossly insignificant considering pt's presentation. Furosemide and digoxin given. RR25, HR 102, p.ox 95% on BiPAP 12/6 w/ 40% FiO2. 11/02/24 2300 <Electronically signed by Arlin DAVIDSON> Cosigner Signature (if applicable): CC: ~ Signed [facility] Work Phone: 1(557) 417-934609-12-2025 Radiology Diagnostic study [facility]09-12-2025 Progress note Author Genia Scott [facility] Note Date/Time November 02, 2024 4:07pm [facility] Medical Records Department [address] [place] [address] Progress Note - Hospitalist 11/02/2434 MR#: [id number] Acct: [id number] Name: TAZ JOHNSON Rep #:[id number] : 1935 89 From: Genia Scott DO PCP: Dr. Dipak Aguilar, DO Status:AD IN Location: [place] [address] Reason for Visit Chief Complaint: Abdominal pain, N/V. Subjective Subjective Patient much more awake. Had a better night. is at the bedside and statesthat he seems to be doing much better. Did eat some today. Still intermittently tachycardic. Patient does not have any significant pain complaints and is still intermittently tired but his states that this is how he is at home as well. Objective Data Objective Data Vital Signs: Vital Signs Temp Pulse Resp BP Pulse Ox O2 Del Method O2 Flow Rate 98.2 F 102 H 20 H 155/116 H 98 Nasal Cannula 2 11/02/24 05:14 11/02/24 06:58 11/02/24 06:58 11/02/24 05:50 11/02/24 06:58 11/02/24 06:58 11/02/24 06:58 Oxygen Flow Rate (L/min) 2 Oxygen Delivery Method Nasal Cannula Weight: 98.6 kg Body Mass Index (BMI) 29.5 Intake & Output: Intake and Output for Last 24 Hours 10/31/24 11/01/24 11/02/24 23:59 23:59 23:59 Intake Total 1475.0 / 1475.0 2550 / 2550 350 / 350 Output Total 835 / 835 1330 / 1330 330 / 330 Balance 640.0 / 640.0 1220 / 1220 Lab / Micro Data 11/02/24 04:59 11/02/24 04:59 Labs: Laboratory Results - last 24 hr 11/01/24 07:23: POC Glucose 113 H 11/01/24 11:02: POC Glucose 115 H 11/01/24 16:07: POC Glucose 107 H 11/01/24 21:53: POC Glucose 102 11/02/24 04:59: WBC 11.2 H, RBC 4.22 L, Hgb 12.4 L, Hct 37.1 L, MCV 87.9, MCH 29.4, MCHC 33.4, RDW Std Deviation 50.4 H, RDW Coeff of Pollo 15.7 H, Plt Count 169, MPV 9.9, Neut % (Auto) Not Reportable, Absolute Neuts (auto) 9.1 H, Absolute Lymphs (auto) 1.01, Total Counted 100, Neutrophils % (Manual) 81 H, Lymphocytes % (Manual) 9 L, Monocytes % (Manual) 6, Eosinophils % (Manual) 2, Metamyelocytes % 1, Myelocytes % 1 H, Differential Comment SCANNED, Diff Path Review May foll, Atypical Lymphocytes 2+, Smudge Cells 2+, Platelet Estimate ADEQUATE, Plt Morphology Comment GIANT, Polychromasia RARE, Ovalocytes RAR, BurrCells RARE, Acanthocytes (Spur) RARE, Sodium 141, Potassium 3.7, Chloride 109 H,Carbon Dioxide 22.8, Anion Gap 9, BUN 17, Creatinine 1.04, Estim Creat Clear Calc 59.72, Est GFR (MDRD) Non-Af 69, BUN/Creatinine Ratio 16.3, Glucose 136 H, Calcium 8.4, Phosphorus 2.0 L, Magnesium 1.4 L, Total Bilirubin 1.01, AST 67 H, ALT 79 H, Alkaline Phosphatase 179 H, Total Protein 5.1 L, Albumin 2.5 L, Globulin 2.6, Albumin/Globulin Ratio 1.0 Micro: Microbiology 10/26/24 15:55 Blood Culture (Wb) - Arm Right Blood Culture - Final No growth in 5 days. 10/26/24 15:55 Blood Culture (Wb) - Arm Left Blood Culture - Final No growth in 5 days. 10/29/24 Unknown Fluid - Gallbladder Gram Stain - Final 10/29/24 Unknown Fluid - Gallbladder Body Fluid Culture - Final Escherichia coli Klebsiella oxytoca 10/29/24 Unknown Fluid - Gallbladder Anaerobic Culture - Preliminary Anaerobic cocci Gram positive semaj 10/27/24 09:24 Mucosa - Nasopharyngeal Coronavirus COVID-19 PCR - Final 10/27/24 01:25 Nasal Secretion MRSA (PCR) - Final 10/27/24 00:52 Mucosa - Nasopharyngeal Respiratory Panel (PCR) - Final 10/27/24 02:25 Urine, Random Legionella Antigen - Final 10/27/24 02:25 Urine, Random Streptococcus pneumoniae Antigen (M - Final ABG Data ABG results: ABG 11/01/24 17:21 Specimen Type ART Sample Site L Radial pH 7.45 Bicarbonate Actual 28.8 H Total CO2 30 Base Excess 5 H O2 Saturation 98 O2 % 2.0 ABG pCO2 41.0 ABG pO2 95 Richard Test Positive O2 Delivery Device Cannula Vent Mode Not entered Rhythm Strip Rhythm Strip: A-fib Rate: 90 Social Homelessness:: Sheltered Physical Exam Const alert, no apparent distress and well nourished; Negative for oriented x3 Constitutional Narrative: Overweight, somnolent, elderly, white male, sitting up in a chair at the bedsideawake and interactive, is at the bedside, appears comfortable, nontoxic, oriented times self and intermittently place but not time HEENT head/scalp atraumatic and moist oral mucous membranes Head and Scalp: normocephalic Resp normal respiratory effort, no retractions, no use of accessory muscles and clearto auscultation bilaterally Auscultation: Negative for rales, rhonchi or wheezes Cardio S1 normal heart sound, S2 normal heart sound, no murmurs, no rub, no gallops andno clicks Cardio Narrative: Irregular irregular with controlled rate currently GI normal to inspection, nondistended, normoactive bowel sounds and soft to palpation GI Narrative: Minimally tender in the right upper quadrant with drain in place Extremity Extremity Narrative: Chronic lower extremity edema, no cyanosis or clubbing Neuro moves all extremities and no focal motor deficits Neuro Narrative: Significant generalized weakness-proximal greater than distal noted Speech: speech normal Psych affect normal Psych Narrative: Pleasant, no signs of agitation or anxiety Assessment & Plan Assessment/Plan (1) Sepsis: (2) Acute cholecystitis: PLAN: Plan Sepsis secondary to acute cholecystitis/possible aspiration pneumonia - Status post percutaneous colostomy tube - Continue antimicrobials with ceftriaxone and Flagyl per infectious disease - Per infectious disease will need antibiotics through 11/08/2024 and can be transition to oral at discharge if p.o. intake is adequate - Perc drain per general surgery with outpatient follow-up - Currently not surgical candidate but will follow from surgical standpoint to see if he would be a candidate in the future - Sepsis syndrome has resolved - Patient was on room air Acute hypoxic respiratory failure - Resolved - Stable on room air Dysphagia - Acute on chronic - Continue modified diet per speech therapy - Continue speech therapy intervention now and at discharge to transitional careunit Atrial fibrillation with RVR - Cardiology is following-appreciate input - Continue apixaban and beta-mattie - Patient still with intermittent tachycardia -Will give an amiodarone bolus and start oral amiodarone 200 mg 3 times dailyfor a week and then transition to twice daily for a week then daily - Continue to monitor on telemetry Hypomagnesemia/hypophosphatemia - K-Phos bolus - Mag bolus - Recheck labs in a.m. Toxic/metabolic encephalopathy - Much closer to baseline today - Continue scheduled risperidone and melatonin - Transfer out of the ICU to minimize delirium CKD stage IIIa - Serum creatinine is stable Urinary retention - Patient will need to maintain Kern at the time of discharge per discussion with urology - Patient is to follow-up outpatient with his primary urologist in [place] DM-2 - Hold oral regimen is on hold next-continue Accu-Cheks as ordered - Continue SSI - A1c was 6.3 - Fasting blood sugar shows good control at 136 Essential hypertension - Beta-mattie as ordered - Discontinue diltiazem - Blood pressure is relatively stable right now so we will continue to hold homelosartan for now and follow - Reassess in a.m. 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 - No other chronic regimen - Follows at [facility] GERD - Continue PPI and transition to oral as able History of tobacco abuse - Remote DVT prophylaxis - Continue Eliquis CODE STATUS - Full code as verified on admission - Hospice and palliative care was consulted and was dismissed by the family Charges/Coding Visit Charges Inpatient E&M: 66505 Subs Hosp L2 Date medically ready for discharge: 11/02/24 Delay Comments: Awaiting acceptance from transitional care unit then will need [id number] due to IV Haldol being given 11/02/24 1607 <Electronically signed by Genia Scott DO> Cosigner Signature (if applicable): CC: ~ Signed [facility] Work Phone: [phone] 159-224709-11-2025 Progress note Author Genia Scott [facility] Note Date/Time November 01, 2024 7:21pm [facility] Medical Records Department [address] [place] [address] Progress Note - Hospitalist 11/01/24 0747 MR#: [id number] Acct: [id number] Name: TAZ JOHNSON Rep #:[id number] : 1935 89 From: Genia Scott DO PCP: Dr. Dipak Aguilar, Status:AD M IN Location: ICU CVICU20 02-21 Reason for Visit Chief Complaint: Abdominal pain, N/V. Subjective Subjective Patient with significant agitation overnight and required IV Haldol and got morphine. Has contributed to significant somnolence today. Also per nursing patient has slept very little since admission. I did discuss with his my plan for today to see if we can get him a little bit acclimated back to it day day sleep cycle and hold off any super sedating medications and use melatonin 10mg at night with some low- dose risperidone. His states she plans on staying with him. Overall he is clinically improved however we need to keep himoff IV medications and make sure he can eat and drink well until we can discuss discharge for rehab. Objective Data Objective Data Vital Signs: Vital Signs Temp Pulse Resp BP Pulse Ox O2 Del Method O2 Flow Rate 98.2 F 117 H 20 H 152/105 H 99 Nasal Cannula 2 11/01/24 06:00 11/01/24 07:18 11/01/24 07:18 11/01/24 06:00 11/01/24 07:18 11/01/24 07:18 11/01/24 07:18 Oxygen Flow Rate (L/min) 2 Oxygen Delivery Method Nasal Cannula Weight: 99.6 kg Body Mass Index (BMI) 29.7 Intake & Output: Intake and Output for Last 24 Hours 10/30/24 10/31/24 11/01/24 23:59 23:59 23:59 Intake Total 1500 / 1500 1475.0 / 1475.0 1100 / 1100 Output Total 1120 / 1120 835 / 835 420 / 420 Balance 380 / 380 640.0 / 640.0 680 / 680 Lab / Micro Data 11/01/24 04:05 11/01/24 04:05 Labs: Laboratory Results - last 24 hr 10/31/24 11:38: POC Glucose 128 H 10/31/24 16:25: POC Glucose 126 H 10/31/24 21:18: POC Glucose 118 H 11/01/24 04:05: WBC 11.6 H, RBC 4.31 L, Hgb 12.7 L, Hct 37.9 L, MCV 87.9, MCH 29.5, MCHC 33.5, RDW Std Deviation 50.8 H, RDW Coeff of Pollo 15.7 H, Plt Count 168, MPV 10.1, Immature Gran % (Auto) 2.500 H, Neut % (Auto) 77.1 H, Lymph % (Auto) 9.7 L, [place] % (Auto) 7.7, Eos % (Auto) 2.2, Baso % (Auto) 0.8, Absolute Neuts (auto) 8.9 H, Absolute Lymphs (auto) 1.12, Nucleated RBC % 0, Sodium 140, Potassium 3.7, Chloride 108, Carbon Dioxide 22.1, Anion Gap 10, BUN 20 H, Creatinine 1.06, Estim Creat Clear Calc 58.87, Est GFR (MDRD) Non-Af 68, BUN/Creatinine Ratio 18.4, Glucose 122 H, Calcium 8.9 Micro: Microbiology 10/29/24 Unknown Fluid - Gallbladder Gram Stain - Final 10/29/24 Unknown Fluid - Gallbladder Body Fluid Culture - Final Escherichia coli Klebsiella oxytoca 10/29/24 Unknown Fluid - Gallbladder Anaerobic Culture - Preliminary 10/26/24 15:55 Blood Culture (Wb) - Arm Right Blood Culture - Preliminary No growth in 48 hours. 10/26/24 15:55 Blood Culture (Wb) - Arm Left Blood Culture - Preliminary No growth in 48 hours. 10/27/24 09:24 Mucosa - Nasopharyngeal Coronavirus COVID-19 PCR - Final 10/27/24 01:25 Nasal Secretion MRSA (PCR) - Final 10/27/24 00:52 Mucosa - Nasopharyngeal Respiratory Panel (PCR) - Final 10/27/24 02:25 Urine, Random Legionella Antigen - Final 10/27/24 02:25 Urine, Random Streptococcus pneumoniae Antigen (M - Final Rhythm Strip Rhythm Strip: A-fib Rate: 90 Social Homelessness:: Sheltered Physical Exam Const no apparent distress Constitutional Narrative: Overweight, somnolent, elderly, white male, sitting up in a chair at the bedsidesleeping, minimally arousable, at bedside, patient appears comfortable, does not look toxic, general surgery in the room at the time of my arrival HEENT head/scalp atraumatic Head and Scalp: normocephalic Eyes conjunctivae normal Resp normal respiratory effort, no retractions, no use of accessory muscles and clearto auscultation bilaterally Auscultation: Negative for rales, rhonchi or wheezes Cardio S1 normal heart sound, S2 normal heart sound, no murmurs, no rub, no gallops andno clicks Cardio Narrative: Irregular irregular with controlled rate currently GI normal to inspection, nondistended, normoactive bowel sounds and soft to palpation GI Narrative: Mild tenderness right upper quadrant with drain in place Extremity Extremity Narrative: Chronic lower extremity edema, no cyanosis or clubbing Neuro Neuro Narrative: Limited exam due to somnolence Psych Psych Narrative: Unable to assess Assessment & Plan Assessment/Plan (1) Sepsis: (2) Acute cholecystitis: PLAN: Plan Sepsis secondary to acute cholecystitis/possible aspiration pneumonia - Status post percutaneous colostomy tube - Continue antimicrobials with ceftriaxone and Flagyl per infectious disease - ID will need to drive for length of antibiotic course - Perc drain per general surgery with outpatient follow-up - Currently not surgical candidate but will follow from surgical standpoint to see if he would be a candidate in the future - Sepsis syndrome has resolved - Patient was on room air Acute hypoxic respiratory failure - Resolved - Highly suspicious for aspiration pneumonia next-continue speech therapy - Patient does have known recurrent history of aspiration - Mental status should be at peak when patient needs to avoid ongoing aspiration Atrial fibrillation with RVR - Cardiology is following-appreciate input - Continue apixaban and beta-mattie - Patient still with intermittent tachycardia - Per last cardiology note if heart rate control stan difficult we will consider increasing to amiodarone Toxic/metabolic encephalopathy - Patient markedly somnolent today and has not been sleeping well plus receivingmorphine and Haldol overnight - Discontinue IV Haldol - Will start risperidone and melatonin 10 mg scheduled at night for delirium andtry to normalize his sleep-wake cycle as this will help his encephalopathy CKD stage IIIa - Serum creatinine is stable - Would like to discontinue Kern tomorrow as long as he is more awake DM-2 - Hold oral regimen is on hold next-continue Accu-Cheks as ordered - Continue SSI - A1c was 6.3 Essential hypertension - Beta-mattie as ordered - If pressures remain elevated will reinstitute home losartan as renal function seems to be improving - Reassess in a.m. 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 - No other chronic regimen - Monitor for retention after discontinuation of Kern GERD - Continue PPI and transition to oral as able History of tobacco abuse - Remote DVT prophylaxis - Continue Eliquis CODE STATUS - Full code as verified on admission - Hospice and palliative care was consulted and was dismissed by the family Charges/Coding Visit Charges Inpatient E&M: 86559 Subs Hosp L2 11/01/241920 <Electronically signed by Genia Scott DO> Cosigner Signature (if applicable): CC: ~ Signed [facility] Work Phone: [phone] Progress note Author Junito Knowles [facility] Note Date/Time November 01, 2024 10:09am [facility] Medical Records Department [address] [place] [address] Progress Note - Infect Disease 11/01/24 1007 MR#: [id number] Acct: [id number] Name: TAZ JOHNSON Rep #:[id number] : 1935 89 From: Junito eastman MD PCP: Dr. Dipak Aguilar DO Status:AD M IN Location: ICU CVICU20 1-1 Physical Exam Narrative Agitation and confusion last night, no fever, at bedside Const Orientation / Consciousness: lethargic Resp normal air movement and clear to auscultation bilaterally Cardio regular rate and regular rhythm GI soft to palpation, non-tender and non-distended Skin no rashes or lesions noted ID ID: Route of nutrition/ use of supplements: [] Nutritional Intake: [] IV Site: [] Kern Catheter: [] Assessment & Plan Assessment/Plan (1) Sepsis: (2) Acute cholecystitis: PLAN: Overall improved. Akash tube in place, surgery following. Recommend ceftriaxone and flagyl for now. Plan on 7 more days abx, stop date 11/08/24. Can change to po at discharge if he is able to tolerate. Will follow 11/01/24 1009 <Electronically signed by Junito Knowles MD> Cosigner Signature (if applicable): CC: ~ Signed [facility] Work Phone: [phone]) 928-581509-11-2025 Progress note Author Kylee Rodriguez [facility] Note Date/Time November 01, 2024 9:42am [facility] Medical Records Department [address] [place] [address] Progress Note - Surgery 11/01/24757 MR#: [id number] Acct: [id number] Name: TAZ JOHNSON Rep #:[id number] : 1935 89 From: Kylee FLOYD PA-C PCP: Dr. Dipak Aguilar, DO Status:AD M IN Location: ICU CVICU20 1-1 Subjective Subjective Patient evaluated resting comfortably in bed. He has an audible chest rattle. Hedenies any abdominal pain. Per night nursing, patient aggitated and confused again. Objective Data Objective Data Vital Signs: Vital Signs Temp Pulse Resp BP Pulse Ox O2 Del Method O2 Flow Rate 98.2 F 117 H 20 H 152/105 H 99 Nasal Cannula 2 11/01/24 06:00 11/01/24 07:18 11/01/24 07:18 11/01/24 06:00 11/01/24 07:18 11/01/24 07:18 11/01/24 07:18 Oxygen Flow Rate (L/min) 2 Oxygen Delivery Method Nasal Cannula Weight: 219 lb 9.286 oz Body Mass Index (BMI) 29.7 Intake & Output: Intake and Output for Last 24 Hours 10/30/24 10/31/24 11/01/24 23:59 23:59 23:59 Intake Total 1500 / 1500 1475.0 / 1475.0 1100 / 1100 Output Total 1120 / 1120 835 / 835 420 / 420 Balance 380 / 380 640.0 / 640.0 680 / 680 Lab / Micro Data 11/01/24 04:05 11/01/24 04:05 Labs: Laboratory Results - last 24 hr 10/31/24 11:38: POC Glucose 128 H 10/31/24 16:25: POC Glucose 126 H 10/31/24 21:18: POC Glucose 118 H 11/01/24 04:05: WBC 11.6 H, RBC 4.31 L, Hgb 12.7 L, Hct 37.9 L, MCV 87.9, MCH 29.5, MCHC 33.5, RDW Std Deviation 50.8 H, RDW Coeff of Pollo 15.7 H, Plt Count 168, MPV 10.1, Immature Gran % (Auto) 2.500 H, Neut % (Auto) 77.1 H, Lymph % (Auto) 9.7 L, [place] % (Auto) 7.7, Eos % (Auto) 2.2, Baso % (Auto) 0.8, Absolute Neuts (auto) 8.9 H, Absolute Lymphs (auto) 1.12, Nucleated RBC % 0, Sodium 140, Potassium 3.7, Chloride 108, Carbon Dioxide 22.1, Anion Gap 10, BUN 20 H, Creatinine 1.06, Estim Creat Clear Calc 58.87, Est GFR (MDRD) Non-Af 68, BUN/Creatinine Ratio 18.4, Glucose 122 H, Calcium 8.9 11/01/24 07:23: POC Glucose 113 H Micro: Microbiology 10/29/24 Unknown Fluid - Gallbladder Gram Stain - Final 10/29/24 Unknown Fluid - Gallbladder Body Fluid Culture - Final Escherichia coli Klebsiella oxytoca 10/29/24 Unknown Fluid - Gallbladder Anaerobic Culture - Preliminary 10/26/24 15:55 Blood Culture (Wb) - Arm Right Blood Culture - Preliminary No growth in 48 hours. 10/26/24 15:55 Blood Culture (Wb) - Arm Left Blood Culture - Preliminary No growth in 48 hours. 10/27/24 09:24 Mucosa - Nasopharyngeal Coronavirus COVID-19 PCR - Final 10/27/24 01:25 Nasal Secretion MRSA (PCR) - Final 10/27/24 00:52 Mucosa - Nasopharyngeal Respiratory Panel (PCR) - Final 10/27/24 02:25 Urine, Random Legionella Antigen - Final 10/27/24 02:25 Urine, Random Streptococcus pneumoniae Antigen (M - Final Rhythm Strip Rhythm Strip: A-fib Rate: 90 Social Homelessness:: Sheltered Physical Exam GI GI Narrative: Abdomen- less distended. PERI drain intact and draining bilious/bloody fluid. Drain sponge appears intact. Non-tender with palpation Assessment & Plan Assessment/Plan (1) Sepsis: (2) Acute cholecystitis: PLAN: Plan I am following this patient in conjunction with Dr. Cavazos. He will independentlyevaluate this patient. Labs reviewed. WBC remains the same. Cytology from drain placement is growing E. Coli and Klebsiella oxytoca Patient changed from Zosyn to Ceftriaxone and Flagyl Anaerobic culture pending Infectious disease consulted No surgical intervention recommended at this time as patient is too high risk for a cholecystectomy currently Limit narcotics as much as possible We will continue to monitor this patient Charges/Coding Visit Charges Inpatient E&M: 91032 Subs Hosp L2 11/01/24 0911 <Electronically signed by Kylee FLOYD PA-C> Cosigner Signature (if applicable): CC: ~ Signed ADDENDUM by Dr. Kenn Cavazos MD on 11/01/24 at 0942 Addendum Patient seen and examined this morning. Agree with assessment and plan as outlined by MARIEL Poe Patient is an 89-year-old male with sepsis secondary to acute cholecystitis/cholelithiasis. Due to multiple comorbidities cholecystostomy tube was recommended rather than cholecystectomy. Clinically he seems to be stable. He did have some confusion overnight and received Haldol. Patient was very somnolent this morning. Recommend continued medical management. No acute surgical plans from our standpoint Dr. Gaines to cover until 11/05/2024 11/01/24 0942<Electronically signed by Kenn Cavazos MD> Cosigner Signature (if applicable): cc: ~* Signed [facility] Work Phone: [phone]) 220-453209-10-2025 Progress note Author Airam gonzales [facility] Note Date/Time October 31, 2024 3:23pm [facility] Medical Records Department [address] [place] [address] Progress Note - Palliative 10/31/248 MR#: [id number] Acct: [id number] Name: TAZ JOHNSON Rep #:[id number] : 1935 89 From: Airam Pulido [employer] PCP: Dr. Dipak Aguilar, DO Status:AD M IN Location: ICU CVICU20 1-1 Subjective Subjective 10/31/24: Prior to meeting with the patient at bedside I reviewed documentation labs barium swallow study. I then met with the patient and his family at bedside for family meeting. Upon entering the room the family was very suspicious and had no idea why palliative care was involved. They stated that since Taz is now eating their goals of care are that he may possibly need togo to a SNF or rehab following his hospital stay but they plan for him to returnhome. They stated that they do not feel that they need my services, at this time. I did recommend the possibility of palliative care outpatient services and the patient's daughter states "he has had the same swallowing problems for 15 years and it has not changed." They did state that they no longer required my services. I am now signing off. Please feel free to reconsult me if needed in the future. The patient was not at all interactive during my visit. 10/30/24 Prior to meeting with the pt at bedside, I reviewed previous documentation, labs and radiological studies. I then met with the pt and his at bedside. I introduced myself and the concept of palliative care, in which they voluntarily accepted our services. I noted that the pt is very sleepy, sitting in a bedside recliner. He is in A-fib with RVR on the monitor. Nursing is also at bedside. I did note him to have marvin oral cyanosis. I attempted to get his O2 sat. They have it on his toe as they were having difficulty with obtaining it on his finger. He has been, reportedly having multiple episodes of A-fib with RVR. Nursing has just medicated him with labetalol. Heart rate is currently 130 to 140. During my assessment it did go down to 103 and continues to be irregular. Patient's requested that I do not wake her as he is getting ready to have a barium swallow. She states that he has not eaten since last Tuesday which is 4 days ago. He also hasnot had a BM since Tuesday, per her report. She did state that she would like for her daughter to be here to have any goals of care conversations, in which I did set up a family meeting with the and daughter for tomorrow at 1500. Iwas able to get some basic information from the patient's , Anika. I also wanted to confirm CODE STATUS in which she confirms that, as of right now, the patient is a full code. She states that they live in [place] in the wintertime and that in March he was in ICU, intubated because he had COVID-pneumonia andthe flu. I did discuss the benefits versus burdens of CPR and intubation and she would like to continue with full code, for now and readdress tomorrow. Patient has been n.p.o. related to dysphagia. His daughter is a speech and language pathologist and has been working with them at home on his swallowing but his has progressively worsened since admission. states that he is significantly confused compared to normal. She states that prior to admission he was able to do all of his own ADLs and was driving. I did note that the patient had a Kern catheter placed yesterday by urology related to urinary retention. I was able to note dark tea colored urine in the Kern catheter bag. He also has a PERI drain in place, Cholecystomy. . He was noted to have gallstones and sludge. Plan is to follow-up with the patient and his family tomorrow for continued goals of care conversations, particularly after the results of the barium swallow. All questions were answered. HPI Narrative per admitting provider The patient is an 89 y/o M w/ PMHx: GERD, Hx CVA w/ associated memory impairment, CKD stage III unclear subtype per GFR trending, Diabetes mellitus type II, PAF, HTN, HLD, GERD, Hx Histoplasmosis, BPH s/p TURP, Former tobacco use who presents to the [facility] ED on 10/26/2024 with onset of abdominal pain specifically right upper quadrant pain since noon on day of presentation shortly after eating clam chowder with significant nausea and sensation that he needed to have a bout of emesis but he was unable although eventually he did force himself to have a small emesis noted to be bilious with normal bowel pattern with normal BM earlier in the day with no fevers but did eventually state onset of chills with a fall reportedly the week prior with bruising to his right side as a result with concern potentially fractures related with his pain prompting ED evaluation. reports he did not get his second dose of eliquis today. Workup in the ED included T97.9, heart rate 71, BP172/114, respiratory rate 17, 96% on room air with heart rate in the ED transiently up to 146, most recent repeat vitals T98.7, heart rate 109, BP 104/58, respiratory rate 26, 93% on 2 L nasal cannula, CBC with WC 15.8, hemoglobin 15.2, platelets 35 with left shift, CMP with BUN/Cr 20/1.27, GFR 54, glucose 144, hepatic profile not marked appearing, lactic acid 3.2, CT chest with a healing right anterior lateral 6th- 9th rib fractures with no pneumothorax, right middle lobe nodular opacity possibly infectious versus neoplasm, mediastinal lymphadenopathy, cardiomegaly with mild vascular congestion and interstitial edema, dependent lung opacities bilaterally likely atelectasis with infection not included, cholelithiasis with concern for acute cholecystitis, left thyroid nodule up to one 6.7 cm, 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 In the ED patient ministered labetalol 20 mg IV x 1, Lopressor 5 mg IV x 1, morphine 4 mg IV x 1, Zofran 4 mg IV x 1, Zosyn 3.375 g IV x 1. In the ED 1L ordered, defererd 30 cc/kg IVFs secondary to concern for overload per discussion with ED physician. ED discussed case with Dr. Cavazos who noted possible intervention Tuesday, may be percutaneous drain but uncertain." Objective Data Objective Data Vital Signs: Vital Signs Temp Pulse Resp BP Pulse Ox O2 Del Method O2 Flow Rate 97.8 F 87 20 H 129/85 H 100 Room Air 1 10/31/24 14:10/31/24 14:10/31/24 14:10/31/24 14:10/31/24 14:10/31/24 14:10/31/24 13:30 Oxygen Flow Rate (L/min) 1 Oxygen Delivery Method Room Air Weight: 216 lb 4.375 oz Body Mass Index (BMI) 29.2 Intake & Output: Intake and Output for Last 24 Hours 10/29/24 10/30/24 10/31/24 23:59 23:59 23:59 Intake Total 3870 / 3870 1500 / 1500 1275.0 / 1275.0 Output Total 995 / 1185 1120 / 1120 555 / 555 Balance 2875 / 2685 380 / 380 720.0 / 720.0 Lab / Micro Data Attestation: I reviewed the patient's lab results. 10/31/24 06:47 10/31/24 06:47 Labs: Laboratory Results - last 24 hr 10/30/24 09:40: Sodium 142, Potassium 3.9, Chloride 111 H, Carbon Dioxide 22.2, Anion Gap 10, BUN 26 H, Creatinine 1.31 H, Estim Creat Clear Calc 47.66 L, Est GFR (MDRD) Non-Af 52 L, BUN/Creatinine Ratio 20.1 H, Glucose 126 H, Calcium 9.2,Total Bilirubin 1.12, AST 166 H, ALT 81 H, Alkaline Phosphatase 136 H, Total Protein 5.5 L, Albumin 2.9 L, Globulin 2.6, Albumin/Globulin Ratio 1.1 10/30/24 16:40: POC Glucose 94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 maybe latercholecystectomy and patient is physically more stronger. Patient currently has questionable pneumonia with a right-sided rib fracture after fall about a month ago. Dyspnea at rest. 10/29: Patient cholecystostomy tube placed. Leukocytosis improving. Cholecystostomy fluid sent for culture 10/30: Cholecystostomy tube fluid growing GNR lactose inspector multifocal lens. Continue IV Zosyn. Vancomycin discontinued. MRSA nasal screen negative. 10/31: Cholecystostomy tube growing E. coli and Klebsiella. IV antibiotic narrowed down to Unasyn to cover gram-negative and anaerobes with suspicion of aspiration pneumonia. ID consulted further opinion regarding choice of antibiotic and duration. #2. 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 Patient also had fall about a month ago with poor respiratory excursion. Chest CT initially reviewed and shows RML nodular opacity measuring 1.9 x 2.5 cm, interlobular septal and peribronchial interstitial thickening bilaterally and dependent opacity in bilateral lung bases. MRSA nasal screen, respiratory panel, urinary antigen and COVID PCR are negative. Blood culture pending. 10/28: URI mucous plugging. Mucomyst inhalation added. On bronchodilator and guaifenesin. 10/29: Patient still congested with upper airway mucus. 10/30: Speech therapist following. Still NPO. 10/31: Patient was supervised feed. #3. Recent mechanical fall on anticoagulant therapy: Patient per report from fell to the right side and not surprisingly on CT imaging demonstrated a nonacute right anterior lateral 6th through 9th rib fractures as well as old lateral left 10th rib fracture, holding anticoagulant therapy as noted, PT/OT/case management consulted for discharge planning. #4. PAF with RVR: Likely secondary to his acute illness #1, improved rate in the ED with ED IV labetalol and lopressor, will continue metoprolol as able, holding Eliquis given surgical intervention needs. Most recently noted echocardiogram 10/01/2023 with EF 70%, mildly enlarged LA, trivial MVI with repeat echo requested. 10/28: Heart rate is controlled 10/29: Heart rate variable, 110-136 point respiratory 22 probably related to acutecholecystitis. On metoprolol oral scheduled and IV as needed. 10/30: Heart rate increased. Patient on IV metoprolol as needed. Probably from respiratory causes 10/31: A-fib RVR, on Cardizem drip 15 mg/h. Sand Polisher consulted. Patient putback on IV heparin drip. Was on Eliquis which was held for cholecystostomy tube. #5. Chronic Kidney Disease Stage IIIa: Admission BUN/Cr 20/1.27, GFR 54, baseline renal function primarily more recently noted 1.2-1.6, most recently 10/01/2023 which is unfortunately remote noted to be 1.47, repeat CMP in a.m. to further elucidate what patient's level is currently. 10/28: BUN/creatinine 29/1.63. Creatinine went up from 1.27-1.63. Abdominal x-ray ordered to look for bowel distention probably third volume sequestration. 10/30: Creatinine better 1.46. Sodium and potassium 140 and 4.2 respectively. AG10 10/31: Creatinine looks better.Urine output documented 950 mL, drainage about 130mL. Bladder distended on catheter side. Discussed with the nursing for perineal hygiene and cleaning Diabetes mellitus type II: Hold oral home regimen, n.p.o. status given presentation as noted, maintain on every 6 hours accu checks w/ ISS. NPO. 10/28: Glucose is 111. /: A1c 6.3%. Glucose 173. #9. Hypertension: BP 150/100 #10. Hyperlipidemia: Patient is n.p.o.. Will need necessary medications #11. Hx CVA w/ associated memory impairment: Hold oral metoprolol, IV metoprolol as needed #12. Former tobacco use: Encouraged continued tobacco cessation. #13. BPH: From records noted status post TURP status, not on any chronic regimen, monitor for retention. #14. GERD: maintain on IV PPI. #15. DVT prophylaxis: SCDs, holding Eliquis given need for intervention. #16. CODE status: Patient HCPKIM is his who is present and living will is currently in place. Discussed CODE status at length including difference betweenFULL code, DNR-CCA and DNR-CC status. 10/30: Conversation regarding advanced planning/palliative care discussed with the patient's . Patient having difficulty understanding and processing the facts. Her daughter is speech pathologist. 10/31: Palliative consult appreciated. Family decided for continue full code andaggressive management. Charges/Coding Visit Charges Inpatient E&M: 31984 Subs Hosp L3 10/31/24 0835 <Electronically signed by Khai Bose MD> Cosigner Signature (if applicable): CC: ~ Signed ADDENDUM by Dr. Khai Bose MD on 10/31/24 at 1417 Addendum Discussed with the palliative RN, Airam. She will have family meeting in the evening today 10/31/24 1417<Electronically signed by Khai Bose MD> Cosigner Signature (if applicable): cc: ~* Signed [facility] Work Phone: [phone]) 478-158809-10-2025 Consult note Author Junito Knowles [facility] Note Date/Time October 31, 2024 1:37pm [facility] Medical Records Department [address] [place] [address] Consultation - Infectious Dx 10/31/24 1334 MR#: [id number] Acct: [id number] Name: TAZ JOHNSON Rep #:[id number] : 1935 89 From: Junito eastman MD PCP: Dr. Dipak Aguilar, DO Status:AD M IN Location: ICU CVICU20 1-1 Assessment & Plan Assessment/Plan (1) Sepsis: (2) Acute cholecystitis: PLAN: Overall improved. Akash tube in place, surgery following. Recommend ceftriaxone and flagyl for now. Will follow, thank you, d/w Dr. Bose HPI Consult Data Date of Consult: 10/31/24 HPI Narrative Reason for Consultation: cholecystitis HPI Narrative: TAZ JOHNSON, is a 89 M with h/o CVAs, CKD, DM, presented 10/26 with acute onset RUQ pain with n/v. Pain was moderate. Some associated chills. Thought it was food poisoning. Came to ED, admitted on zosyn. Seen by surgery, had akash tube placed. Now feeling better. Pt unable to provide history; obtained from at bedside. Full ROS performed and neg except as noted above. [facility] Medical History Type 2 diabetes mellitus Hyperlipidemia HTN (hypertension) Pulmonary hypertension Diverticulosis Insomnia Atrial fibrillation with RVR Histoplasmosis GERD (gastroesophageal reflux disease) History of skin cancer Solar keratosis Ulcer of right leg Burn scar Home Medications ?Medication ?Instructions ?Recorded ?Last Taken ?Type omeprazole 40 mg capsule,delayed 20 mg PO DAILY reflux 07/22/15 09/05/19 06:00 History release albuterol sulfate 90 mcg/actuation 1 puff PO Q6H short ness of breath 09/05/19 09/05/19 12:00 History breath activated powder inhaler multivitamin 1 tab PO QWEEK 09/25/19 Unkn own History apixaban 5 mg tablet 5 mg PO BID #180 tabs 08/05/ 20 Unknown Rx cholecalciferol (vitamin D3) 50 50 [...] acid r eflux 09/30/23 09/30/23 History release furosemide 20 mg tablet 20 mg PO DAILY PRN swelling 10/26/24 Unknown History hydralazine 25 mg tablet mg PO 10/26/24 Unknown Histo ry ipratropium 0.5 mg-albuterol 3 mg 3 ml inhalation TID 10/26/24 Unknown History (2.5 mg base)/3 mL nebulization soln losartan 100 mg tablet 100 mg PO DAILY 10/26/24 Unk nown History magnesium 200 mg tablet 200 mg PO DAILY 10/26/24 Unk nown History metformin 500 mg tablet 500 mg PO BID 10/26/24 Unkno wn History rosuvastatin 20 mg tablet 20 mg PO DAILY 10/26/24 Unkn own History Allergy/AdvReac Type Severity Reaction Status Date / Time No Known Allergies Allergy Verified 10/26/24 16:44 Family History Mother Breast cancer Father Colon cancer Melanoma Brother COPD (chronic obstructive pulmonary disease) Grandfather Multiple myeloma Surgical History History of left hip replacement History of arthroscopic knee surgery History of skin graft History of transurethral resection of prostate History of right hip replacement History of rotator cuff surgery History of tonsillectomy and adenoidectomy Social History household members: spouse Smoking Status: Former smoker how long ago did patient quit smokin years ago alcohol intake: current alcohol intake frequency: a few times a week Alcohol type: wine substance use type: does not use caffeine: No Homelessness:: Sheltered Physical Exam Const alert and no apparent distress General Appearance: lethargic HEENT normocephalic and head/scalp atraumatic Eyes PERRL and EOMs intact bilaterally Neck supple and No nodes Resp normal air movement and clear to auscultation bilaterally Cardio Negative for regular rhythm Rate: tachycardic GI soft to palpation, non-tender and non-distended Extremity General Extremity: Negative for edema Skin no rashes or lesions noted Neuro CN's II-XII intact bilaterally Lab / Micro Data Attestation: I reviewed the patient's lab results. 10/31/24 06:47 10/31/24 06:47 Labs: Laboratory Results - last 24 hr 10/30/24 09:40: Sodium 142, Potassium 3.9, Chloride 111 H, Carbon Dioxide 22.2, Anion Gap 10, BUN 26 H, Creatinine 1.31 H, Estim Creat Clear Calc 47.66 L, Est GFR (MDRD) Non-Af 52 L, BUN/Creatinine Ratio 20.1 H, Glucose 126 H, Calcium 9.2,Total Bilirubin 1.12, AST 166 H, ALT 81 H, Alkaline Phosphatase 136 H, Total Protein 5.5 L, Albumin 2.9 L, Globulin 2.6, Albumin/Globulin Ratio 1.1 10/30/24 16:40: POC Glucose 94 10/30/24 22:26: POC Glucose 109 H 10/30/24 23:57: POC Glucose 107 H 10/31/24 06:34: POC Glucose 144 H 10/31/24 06:47: WBC 11.4 H, RBC 4.07 L, Hgb 11.9 L, Hct 36.0 L, MCV 88.5, MCH 29.2, MCHC 33.1, RDW Std Deviation 51.0 H, RDW Coeff of Pollo 15.7 H, Plt Count 179, MPV 10.1, Immature Gran % (Auto) 1.200 H, Neut % (Auto) 83.5 H, Lymph % (Auto) 6.4 L, [place] % (Auto) 6.2, Eos % (Auto) 2.0, Baso % (Auto) 0.7, Absolute Neuts (auto) 9.5 H, Absolute Lymphs (auto) 0.73 L, Nucleated RBC % 0, Sodium 142, Potassium 3.6, Chloride 111 H, Carbon Dioxide 23.3, Anion Gap 8, BUN 26 H, Creatinine 1.30 H, Estim Creat Clear Calc 47.67 L, Est GFR (MDRD) Non-Af 53 L, BUN/Creatinine Ratio 20.2 H, Glucose 159 H, Calcium 9.1, Total Bilirubin 1.31 H, AST 310 H, ALT 174 H, Alkaline Phosphatase 203 H, Total Protein 5.4 L, Albumin 2.7 L, Globulin 2.7, Albumin/Globulin Ratio 1.0 10/31/24 11:38: POC Glucose 128 H Micro: Microbiology 10/29/24 Unknown Fluid - Gallbladder Gram Stain - Final 10/29/24 Unknown Fluid - Gallbladder Body Fluid Culture - Final Escherichia coli Klebsiella oxytoca 10/29/24 Unknown Fluid - Gallbladder Anaerobic Culture - Preliminary Rhythm Strip Rhythm Strip: A-fib Rate: 90 10/31/24 1337 <Electronically signed by Junito Knowles MD> Cosigner Signature (if applicable): CC: Dr. Dipak Aguilar, DO~ Signed [facility] Work Phone: [phone] 860-111909-10-2025 Procedure [facility] 10-31-2024 Consult note Author Cece Bella [facility] Note Date/Time October 31, 2024 9:23am [facility] Medical Records Department [address] [place] [address] Consultation - Cardiology 10/31/24 0904 MR#: [id number] Acct: [id number] Name: TAZ JOHNSON Rep #:[id number] : 1935 89 From: Cece Bella MD PCP: Dr. Dipak Aguilar, DO Status:AD M IN Location: ICU CVICU20 1-1 Assessment & Plan Assessment/Plan (1) Chronic a-fib: PLAN: Patient is now starting to take p.o.'s and is on metoprolol 50 mg twice daily. Blood pressures are mildly elevated. He does continue on IV Cardizem. The atrial fibrillation has been documented to be chronic since 2019. He does need to be anticoagulated for stroke prevention and would recommend reinstitution of short acting anticoagulant therapy until he can be transition back to Eliquis. The appropriate dose of Eliquis would be 5 mg twice daily given his creatinine of 1.3 and his weight over 60 kg. Would recommend increasing the metoprolol to 50 mg 3 times daily of tartrate andthen titrating and weaning the diltiazem drip. If this is unsuccessful in controlling his rate consideration may be given of using amiodarone would only use this short- term. His rate and atrial fibs been well-controlled in the home environment prior to this infectious process with a combination of metoprolol totartrate 50 mg twice daily and Eliquis 5 mg twice daily. (2) Acute cholecystitis: PLAN: Patient's status post percutaneous drainage. Further treatment per the primary service and surgical team. PLAN: Plan 1. Recommend increasing metoprolol to tartrate to 50 mg 3 times daily. 2. Wean and DC diltiazem as keeping heart rate between 55 and 100. 3. If unsuccessful in maintaining rate control would consider adding IV amiodarone short-term if he is not absorbing p.o. medications. 4. When appropriate would reinstitute Eliquis 5 mg twice daily. 5. If further assistance is needed from cardiology please reconsult us. HPI Consult Data Date of Consult: 10/31/24 HPI Narrative Reason for Consultation: Atrial fibrillation graph ventricular response. HPI Narrative: TAZ JOHNSON, is a 89 M who presents patient is been hospitalized for several days due to pulmonary and gallbladder infections. He is status post percutaneous drainage of his gallbladder due to inability to undergo surgical procedure. Patient carries a history of atrial fibrillation he denies any previous history of stroke. I looked back to his far back as 2019 and every ECG the patient's had done he has been in atrial fibrillation with a right bundle branch block. He had historically been on Eliquis 5 mg twice daily in his home environment metoprolol 50 mg twice daily. Heart rate at this time shows atrial fibrillation with an average rate of 90 bpmon telemetry. The patient denies any palpitations denies any significant shortness of breath. He has had issues with clearing his secretions from a pulmonary perspective and has a tube in place to drain his gallbladder. He is currently taking p.o. metoprolol 50 mg twice daily and is on diltiazem infusion. Given his infectious process and general medical situation would expect his heart rate to be in the 80 to 100 bpm range with his atrial fibrillation when itis controlled. The patient is not on anticoagulation at this time due to his percutaneous drainage of his gallbladder. I would recommend short acting Lovenox be reinstituted until he can be transition back to his Eliquis. [facility] Medical History Type 2 diabetes mellitus Hyperlipidemia HTN (hypertension) Pulmonary hypertension Diverticulosis Insomnia Atrial fibrillation with RVR Histoplasmosis GERD (gastroesophageal reflux disease) History of skin cancer Solar keratosis Ulcer of right leg Burn scar Home Medications ?Medication ?Instructions ?Recorded ?Last Taken ?Type omeprazole 40 mg capsule,delayed 20 mg PO DAILY reflux 07/22/15 09/05/19 06:00 History release albuterol sulfate 90 mcg/actuation 1 puff PO Q6H short ness of breath 09/05/19 09/05/19 12:00 History breath activated powder inhaler multivitamin 1 tab PO QWEEK 09/25/19 [...] acid r eflux 09/30/23 09/30/23 History release furosemide 20 mg tablet 20 mg PO DAILY PRN swelling 10/26/24 Unknown History hydralazine 25 mg tablet mg PO 10/26/24 Unknown Histo ry ipratropium 0.5 mg-albuterol 3 mg 3 ml inhalation TID 10/26/24 Unknown History (2.5 mg base)/3 mL nebulization soln losartan 100 mg tablet 100 mg PO DAILY 10/26/24 Unk nown History magnesium 200 mg tablet 200 mg PO DAILY 10/26/24 Unk nown History metformin 500 mg tablet 500 mg PO BID 10/26/24 Unkno wn History rosuvastatin 20 mg tablet 20 mg PO DAILY 10/26/24 Unkn own History Allergy/AdvReac Type Severity Reaction Status Date / Time No Known Allergies Allergy Verified 10/26/24 16:44 Family History Mother Breast cancer Father Colon cancer Melanoma Brother COPD (chronic obstructive pulmonary disease) Grandfather Multiple myeloma Surgical History History of left hip replacement History of arthroscopic knee surgery History of skin graft History of transurethral resection of prostate History of right hip replacement History of rotator cuff surgery History of tonsillectomy and adenoidectomy Social History household members: spouse Smoking Status: Former smoker how long ago did patient quit smokin years ago alcohol intake: current alcohol intake frequency: a few times a week Alcohol type: wine substance use type: does not use caffeine: No Homelessness:: Sheltered ROS Constitutional Constitutional: Reports as per HPI Eyes Eyes: Reports systems reviewed and no addt'l complaints, except as documented ENT HEENT: Reports systems reviewed and no addt'l complaints, except as documented Cardiovascular Cardiovascular: Reports as per HPI Respiratory/Chest Respiratory/Chest: Reports as per HPI Gastrointestinal Gastrointestinal: Reports as per HPI Genitourinary Genitourinary: Reports systems reviewed and no addt'l complaints, except as documented Musculoskeletal Musculoskeletal: Reports systems reviewed and no addt'l complaints, except as documented Integumentary Integumentary: Reports systems reviewed and no addt'l complaints, except as documented Neurologic Neurologic: Reports systems reviewed and no addt'l complaints, except as documented Psychiatric Psychiatric: Reports systems reviewed and no addt'l complaints, except as documented Endocrine Endocrinology: Reports systems reviewed and no addt'l complaints, except as documented Hematologic/Lymphatic Hematologic/Lymphatic: Reports systems reviewed and no addt'l complaints, exceptas documented Allergic/Immunologic Allergic/Immunologic: Reports systems reviewed and no addt'l complaints, except as documented Physical Exam Const alert Eyes EOMs intact bilaterally Neck no JVD and no carotid bruits Chest inspection of chest normal Resp normal respiratory effort Auscultation: diminished lung sounds diffuse Cardio Cardio Narrative: Distant heart tones due to respiratory status and increased AP diameter. Rate: regular rate Rhythm: abnormal rhythm irregularly irregular Heart Sounds: S1 normal and S2 normal; Negative for click, gallop or murmur GI GI Narrative: Distended but nontender Extremity no pedal edema Psych cooperative Charges/Coding Visit Charges Inpatient E&M: 91670 Init Hosp L2 Objective Data Vital Signs: Vital Signs Temp Pulse Resp BP Pulse Ox O2 Del Method O2 Flow Rate 98.3 F 105 H 20 H 144/100 H 96 Nasal Cannula 2 10/31/24 04:00 10/31/24 08:00 10/31/24 08:00 10/31/24 08:00 10/31/24 08:00 10/31/24 08:00 10/31/24 08:00 Oxygen Flow Rate (L/min) 2 Oxygen Delivery Method Nasal Cannula Weight: 216 lb 4.375 oz Body Mass Index (BMI) 29.2 Intake & Output: Intake and Output for Last 24 Hours 10/29/24 10/30/24 10/31/24 23:59 23:59 23:59 Intake Total 3870 / 3870 1500 / 1500 242.5 / 242.5 Output Total 995 / 1185 1120 / 1120 250 / 250 Balance 2875 / 2685 380 / 380 -7.5 / -7.5 Lab / Micro Data Attestation: I reviewed the patient's lab results. 10/31/24 06:47 10/31/24 06:47 Labs: Laboratory Results - last 24 hr 10/30/24 09:40: WBC 11.8 H, RBC 4.19 L, Hgb 12.4 L, Hct 37.4 L, MCV 89.3, MCH 29.6, MCHC 33.2, RDW Std Deviation 51.3 H, RDW Coeff of Pollo 15.8 H, Plt Count 166, MPV 10.0, Immature Gran % (Auto) 1.100 H, Neut % (Auto) 85.4 H, Lymph % (Auto) 5.6 L, [place] % (Auto) 6.4, Eos % (Auto) 1.1, Baso % (Auto) 0.4, Absolute Neuts (auto) 10.1 H, Absolute Lymphs (auto) 0.66 L, Nucleated RBC % 0, Sodium 142, Potassium 3.9, Chloride 111 H, Carbon Dioxide 22.2, Anion Gap 10, BUN 26 H,Creatinine 1.31 H, Estim Creat Clear Calc 47.66 L, Est GFR (MDRD) Non-Af 52 L, BUN/Creatinine Ratio 20.1 H, Glucose 126 H, Calcium 9.2, Total Bilirubin 1.12, AST 166 H, ALT 81 H, Alkaline Phosphatase 136 H, Total Protein 5.5 L, Albumin 2.9L, Globulin 2.6, Albumin/Globulin Ratio 1.1 10/30/24 11:41: POC Glucose 92 10/30/24 16:40: POC Glucose 94 10/30/24 22:26: POC Glucose 109 H 10/30/24 23:57: POC Glucose 107 H 10/31/24 06:34: POC Glucose 144 H 10/31/24 06:47: WBC 11.4 H, RBC 4.07 L, Hgb 11.9 L, Hct 36.0 L, MCV 88.5, MCH 29.2, MCHC 33.1, RDW Std Deviation 51.0 H, RDW Coeff of Pollo 15.7 H, Plt Count 179, MPV 10.1, Immature Gran % (Auto) 1.200 H, Neut % (Auto) 83.5 H, Lymph % (Auto) 6.4 L, [place] % (Auto) 6.2, Eos % (Auto) 2.0, Baso % (Auto) 0.7, Absolute Neuts (auto) 9.5 H, Absolute Lymphs (auto) 0.73 L, Nucleated RBC % 0, Sodium 142, Potassium 3.6, Chloride 111 H, Carbon Dioxide 23.3, Anion Gap 8, BUN 26 H, Creatinine 1.30 H, Estim Creat Clear Calc 47.67 L, Est GFR (MDRD) Non-Af 53 L, BUN/Creatinine Ratio 20.2 H, Glucose 159 H, Calcium 9.1, Total Bilirubin 1.31 H, AST 310 H, ALT 174 H, Alkaline Phosphatase 203 H, Total Protein 5.4 L, Albumin 2.7 L, Globulin 2.7, Albumin/Globulin Ratio 1.0 Micro: Microbiology 10/29/24 Unknown Fluid - Gallbladder Gram Stain - Final 10/29/24 Unknown Fluid - Gallbladder Body Fluid Culture - Final Escherichia coli Klebsiella oxytoca 10/26/24 15:55 Blood Culture (Wb) - Arm Right Blood Culture - Preliminary No growth in 48 hours. 10/26/24 15:55 Blood Culture (Wb) - Arm Left Blood Culture - Preliminary No growth in 48 hours. Rhythm Strip Rhythm Strip: A-fib Rate: 90 Cardiology Labs/Tests 10/30/24 09:40: WBC 11.8 H, RBC 4.19 L, Hgb 12.4 L, Hct 37.4 L, MCV 89.3, MCH 29.6, MCHC 33.2, Plt Count 166, MPV 10.0, Immature Gran % (Auto) 1.100 H, Neut %(Auto) 85.4 H, Lymph % (Auto) 5.6 L, [place] % (Auto) 6.4, Eos % (Auto) 1.1, Baso %(Auto) 0.4, Absolute Neuts (auto) 10.1 H, Nucleated RBC % 0, Sodium 142, Potassium 3.9, Chloride 111 H, Carbon Dioxide 22.2, Anion Gap 10, BUN 26 H, Creatinine 1.31 H, Est GFR (MDRD) Non-Af 52 L, BUN/Creatinine Ratio 20.1 H, Glucose 126 H, Calcium 9.2, Total Bilirubin 1.12 10/31/24 06:47: WBC 11.4 H, RBC 4.07 L, Hgb 11.9 L, Hct 36.0 L, MCV 88.5, MCH 29.2, MCHC 33.1, Plt Count 179, MPV 10.1, Immature Gran % (Auto) 1.200 H, Neut %(Auto) 83.5 H, Lymph % (Auto) 6.4 L, [place] % (Auto) 6.2, Eos % (Auto) 2.0, Baso %(Auto) 0.7, Absolute Neuts (auto) 9.5 H, Nucleated RBC % 0, Sodium 142, Potassium 3.6, Chloride 111 H, Carbon Dioxide 23.3, Anion Gap 8, BUN 26 H, Creatinine 1.30 H, Est GFR (MDRD) Non-Af 53 L, BUN/Creatinine Ratio 20.2 H, Glucose 159 H, Calcium 9.1, Total Bilirubin 1.31 H Rhythm: EKG: ECHO: Stress Test: Cardiac Cath: PCI: CT Surgery: Holter monitor: EPS: PPM: CXR: Chest CT Scan: BORA Risk Score for UA/STEMI Assesmment (YES = 1) Risk Stratification Applicable: No 10/31/24922 <Electronically signed by Cece Bella MD> Cosigner Signature (if applicable): CC: Dr. Dipak Aguilar, DO~ Signed [facility] Work Phone: [phone] 525-752209-10-2025 Progress note Author Kylee Rodriguez [facility] Note Date/Time October 31, 2024 8:33am [facility] Medical Records Department [address] [place] [address] Progress Note - Surgery 10/31/24822 MR#: [id number] Acct: [id number] Name: TAZ JOHNSON Rep #:[id number] : 1935 89 From: Kylee FLOYD PA-C PCP: Dr. Dipak Aguilar, Status:AD M IN Location: ICU CVICU20 1-1 Subjective Subjective Patient evaluated resting comfortably in bed. He denies abdominal pain this morning. Objective Data Objective Data Vital Signs: Vital Signs Temp Pulse Resp BP Pulse Ox O2 Del Method O2 Flow Rate 98.3 F 99 16 144/93 H 96 Nasal Cannula 2 10/31/24 04:00 10/31/24 07:48 10/31/24 07:06 10/31/24 07:48 10/31/24 07:06 10/31/24 08:00 10/31/24 08:00 Oxygen Flow Rate (L/min) 2 Oxygen Delivery Method Nasal Cannula Weight: 216 lb 4.375 oz Body Mass Index (BMI) 29.2 Intake & Output: Intake and Output for Last 24 Hours 10/29/24 10/30/24 10/31/24 23:59 23:59 23:59 Intake Total 3870 / 3870 1500 / 1500 127.5 / 127.5 Output Total 995 / 1185 1120 / 1120 250 / 250 Balance 2875 / 2685 380 / 380 -122.5 / -122.5 Lab / Micro Data 10/31/24 06:47 10/31/24 06:47 Labs: Laboratory Results - last 24 hr 10/30/24 09:40: WBC 11.8 H, RBC 4.19 L, Hgb 12.4 L, Hct 37.4 L, MCV 89.3, MCH 29.6, MCHC 33.2, RDW Std Deviation 51.3 H, RDW Coeff of Pollo 15.8 H, Plt Count 166, MPV 10.0, Immature Gran % (Auto) 1.100 H, Neut % (Auto) 85.4 H, Lymph % (Auto) 5.6 L, [place] % (Auto) 6.4, Eos % (Auto) 1.1, Baso % (Auto) 0.4, Absolute Neuts (auto) 10.1 H, Absolute Lymphs (auto) 0.66 L, Nucleated RBC % 0, Sodium 142, Potassium 3.9, Chloride 111 H, Carbon Dioxide 22.2, Anion Gap 10, BUN 26 H,Creatinine 1.31 H, Estim Creat Clear Calc 47.66 L, Est GFR (MDRD) Non-Af 52 L, BUN/Creatinine Ratio 20.1 H, Glucose 126 H, Calcium 9.2, Total Bilirubin 1.12, AST 166 H, ALT 81 H, Alkaline Phosphatase 136 H, Total Protein 5.5 L, Albumin 2.9L, Globulin 2.6, Albumin/Globulin Ratio 1.1 10/30/24 11:41: POC Glucose 92 10/30/24 16:40: POC Glucose 94 10/30/24 22:26: POC Glucose 109 H 10/30/24 23:57: POC Glucose 107 H 10/31/24 06:34: POC Glucose 144 H 10/31/24 06:47: WBC 11.4 H, RBC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 infectious versus neoplasm, mediastinal lymphadenopathy, cardiomegaly with mild vascular congestion and interstitial edema, dependent lung opacities bilaterally likely atelectasis with infection not included, cholelithiasis with concern for acute cholecystitis, left thyroid nodule up to one 6.7 cm, 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 In the ED patient ministered labetalol 20 mg IV x 1, Lopressor 5 mg IV x 1, morphine 4 mg IV x 1, Zofran 4 mg IV x 1, Zosyn 3.375 g IV x 1. In the ED 1L ordered, defererd 30 cc/kg IVFs secondary to concern for overload per discussion with ED physician. ED discussed case with Dr. Cavazos who noted possible intervention Tuesday, may be percutaneous drain but uncertain." Palliative Assessment Advanced Directive - Current Admission Advance Directive: Advance Directive ON ADMISSION - REFERENCE 3 Do you have a Healthcare Yes 10/27/24 00:42 Living Will? Is a Healthcare Living Will No, requested patient bring 10/27/24 00:42 present in the medical record? copy into [facility] Do you have a Healthcare Power Yes: Anika Johnson 10/27/24 00:42 of C2 Tactical Analysis Technician? Is a Healthcare Power of No, requested patient bring 10/27/24 00:42 C2 Tactical Analysis Technician present in the copy into [facility] medical rec Do You Want Additional Declined 10/27/24 00:42 Information on Advanced Directives or Healthcare Proxy/DPOA comments: daughter Annika [phone] Anika [phone] Psychosocial/Spiritual Information Living situation/Marital status: (all information from pt ) Geographic location: [place] Supports: family Yarsani/Sariah or spiritual preference: Scientology Spiritual distress: none Prior functional status: All ADL's prior to hospital and driving. daughter is [employer] and helping with swallow Assistive devices at home: none Cultrual issues: none Information about the patient as a person: work out in his gym downstairs, yard work, go to dinner, TV, 8 grandkids Symptoms Palliative performance scale: 60 prior to hospital Palliative prognostic index: 11.0 (If PPI is greater than 6.0, survival is < 3 weeks Dyspnea symptoms: None Constipation symptoms: Severe Nausea symptoms: Mild (per ) Vomiting symptoms: Mild Depression symptoms: None Anorexia symptoms: Moderate Cough symptoms: None Fatigue symptoms: Moderate Weakness symptoms: Moderate Confusion symptoms: Moderate Side Effects & Interventions: Above information is from the patient's . Objective Data Objective Data Vital Signs: Vital Signs Temp Pulse Resp BP Pulse Ox O2 Del Method O2 Flow Rate 98.1 F 143 H 20 H 152/101 H 96 Nasal Cannula 2 10/30/24 08:00 10/30/24 09:00 10/30/24 09:00 10/30/24 09:00 10/30/24 09:00 10/30/24 09:00 10/30/24 09:00 Oxygen Flow Rate (L/min) 2 Oxygen Delivery Method Nasal Cannula Weight: 219 lb 12.814 oz Body Mass Index (BMI) 29.7 Intake & Output: Intake and Output for Last 24 Hours 10/28/24 10/29/24 10/30/24 23:59 23:59 23:59 Intake Total 3646.34 / 3646.34 3870 / 3870 1300 / 1300 Output Total 760 / 760 995 / 1185 570 / 570 Balance 2886.34 / 2886.34 2875 / 2685 730 / 730 Lab / Micro Data Attestation: I reviewed the patient's lab results. Lab results narrative: Patient has had a slight improvement in his WBCs and are now 11.8. He does showan JENELLE with a BUN of 30, creatinine 1.46 and GFR 46. 10/30/24 09:40 10/29/24 03:07 Labs: Laboratory Results - last 24 hr 10/29/24 12:00: POC Glucose 106 10/29/24 17:19: POC Glucose 114 H 10/29/24 23:59: POC Glucose 122 H 10/29/24 : Fluid Source Cancelled, Fluid Color Cancelled, Fluid Appearance Cancelled, Fluid WBC Cancelled, Fluid RBC Cancelled, Fluid Tot Cell Count Cancelled, Fld Polynuclear WBCs # Cancelled, Fld Polynuclear WBCs % Cancelled, Fluid Mononuclear WBCs Cancelled, Fld Mononuclear WBCs % Cancelled, Fluid Neutrophils Cancelled, Fluid Lymphocytes Cancelled, Fluid Monocytes Cancelled, Fluid Plasma Cells Cancelled, Fluid Macrophages Cancelled, Fld Mesothelial CellsCancelled, Fluid Other Cells Cancelled, Fl Pathologist Comment Cancelled, Fluid Comment 2 Cancelled 10/30/24 05:36: POC Glucose 108 H Micro: Microbiology 10/29/24 Unknown Fluid - Gallbladder Gram Stain - Final 10/29/24 Unknown Fluid - Gallbladder Body Fluid Culture - Preliminary GNR lactose inspector multifocal lens GNR lactose inspector multifocal lens#2 10/26/24 15:55 Blood Culture (Wb) - Arm Right Blood Culture - Preliminary No growth in 48 hours. 10/26/24 15:55 Blood Culture (Wb) - Arm Left Blood Culture - Preliminary No growth in 48 hours. 10/27/24 09:24 Mucosa - Nasopharyngeal Coronavirus COVID-19 PCR - Final 10/27/24 01:25 Nasal Secretion MRSA (PCR) - Final 10/27/24 00:52 Mucosa - Nasopharyngeal Respiratory Panel (PCR) - Final 10/27/24 02:25 Urine, Random Legionella Antigen - Final 10/27/24 02:25 Urine, Random Streptococcus pneumoniae Antigen (M - Final Radiography Diagnostic Testing: Radiology Impression Biopsy CT 10/29/24 05:55 IMPRESSION: Successful drainage of the gallbladder, with drain left in place. Laboratory results pending. Reading Location: [place] [address] Rhythm Strip Rhythm Strip: A-fib Rate: 140 Social Homelessness:: Sheltered Impressions & Recommendations Patient & Family Issues discussed with the patient and family: Goals of care going forward Patient goal: Patient was unable to participate Family goal: Family wants to continue the patient to have aggressive medical management and full code Ethical & Legal Ethical and legal: May have to defer to DPOA's as patient is currently confused Impressions Impressions: Patient may benefit from palliative care services as an outpatient going forward. Recommentation Palliative recommendations: I currently do not recommend the patient be a full code based on his extensive medical history and comorbidities as I do not feel the benefits would outweigh the burdens in the long-term. is consistently endorsing full code as well as all medical management to include feeding tubes if necessary. Encouter Achieved as a result of this Palliative Care Encounter: [[id number], [phone] ] minutes were spent in total for this visit which consisted, primarily of counseling and education dealing with the complex and emotionally intense issues of symptom management and palliative care in the setting of serious and potentially life-threatening illness. Review of documentation, labs and radiological studies. ?Patient/family had the opportunity to ask questions Plan (1) Sepsis: PLAN: Medical management per primary team (2) Dyspnea on exertion: PLAN: Medical management per primary team (3) Chronic a-fib: PLAN: Medical management per primary team (4) Acute cholecystitis: PLAN: Medical management per primary team (5) Palliative care encounter: PLAN: Family meeting scheduled for tomorrow, 10/31/2024 at 1500 10/30/24 1334 <Electronically signed by Airam DAVIDSON> Cosigner Signature (if applicable): CC: Dr. Dipak Aguilar, DO~ Signed [facility] Work Phone: [phone]) [phone] Progress note Author Goran Bowens [facility] Note Date/Time October 30, 2024 10:06am [facility] Medical Records Department [address] [place] [address] Progress Note - Line Assembler 10/30/24 0736 MR#: [id number] Acct: [id number] Name: TAZ JOHNSON Rep #:[id number] : 1935 89 From: Goran Bowens DO PCP: Dr. Dipak Aguialr DO Status:AD M IN Location: ICU CVICU 1-1 Assessment & Plan Assessment/Plan (1) Sepsis: (2) Acute cholecystitis: PLAN: Plan RECOMMENDATIONS: 1. Continue antimicrobials as ordered. 2. Speech therapy to clear the patient prior to advancement of diet. 3. Cautious use of opiate pain medications. 4. Stop continuous IV fluids. 5. Maintain aspiration precautions. 6. Wean supplemental oxygen to maintain saturations at or above 90%. 7. Consider palliative care consultation for goals of care discussion. IMPRESSIONS: 1. Sepsis Related to acute cholecystitis status post cholecystostomy tube +/- aspiration PNA. Continue antimicrobials as indicated, pending culture results. The patient is otherwise hemodynamically stable at the present time. 2. Acute hypoxemic respiratory failure Concern for underlying pneumonia with high degree of concern for aspiration. Speech therapy is following to assist with decisions regarding dietary advancement, given his history of recurrent aspiration. Continue to wean supplemental oxygen to maintain saturations at or above 90%. The patient shouldremain n.p.o. for now. Continue antimicrobials. 3. Atrial fibrillation with RVR Resume Lopressor if the patient's diet is able to be advanced. Otherwise, consider initiation of amiodarone. 4. History of chronic kidney disease/diabetes mellitus/history of CVA/BPH Complicates care, management, recovery and prognosis. Continue supportive measures as noted above. PT/OT to work with the patient. This note was generated with Exploretrip dictation software. It may contain incorrectwords, spelling, and punctuation that were not noted in checking the note beforesigning. Subjective Subjective The patient was seen and examined at the bedside this morning. Events from the last 24 hours have been reviewed. The patient is currently afebrile, hemodynamically stable and maintaining appropriate oxygen saturations on 2 L/minvia nasal cannula. The patient is documented to be overall net +10.7 L for the hospitalization. White blood cell count is mildly elevated at 12,000. Hemoglobin and platelet count are stable. The patient appears quite tired and intermittently confused this morning. His is present at the bedside. I did attempt to engage them both in a goals of care discussion, but neither were willing to engage in a detailed conversation. There is concern by speech therapy that the patient is still possibly aspirating, but he is declining any further speech therapy testing. Objective Data Objective Data The patient's most recent lab work, culture data and imaging studies have all been personally reviewed. Gallbladder aspirate is positive for gram-negative rods, lactose inspector multifocal lens. Vital Signs: Vital Signs Temp Pulse Resp BP Pulse Ox O2 Del Method O2 Flow Rate 98.1 F 121 H 23 H 131/86 H 95 Nasal Cannula 2 10/30/24 06:00 10/30/24 07:00 10/30/24 07:00 10/30/24 07:00 10/30/24 07:00 10/30/24 07:00 10/30/24 07:00 Oxygen Flow Rate (L/min) 2 Oxygen Delivery Method Nasal Cannula Weight: 219 lb 12.814 oz Body Mass Index (BMI) 29.7 Intake & Output: Intake and Output for Last 24 Hours 10/28/24 10/29/24 10/30/24 23:59 23:59 23:59 Intake Total 3646.34 / 3646.34 3870 / 3870 50 / 50 Output Total 760 / 760 995 / 1185 440 / 440 Balance 2886.34 / 2886.34 2875 / 2685 -390 / -390 Lab / Micro Data Attestation: I reviewed the patient's lab results. 10/30/24 09:40 10/29/24 03:07 Labs: Laboratory Results - last 24 hr 10/29/24 08:30: PT 21.7 H, INR 1.9, APTT 48.5 H 10/29/24 12:00: POC Glucose 106 10/29/24 17:19: POC Glucose 114 H 10/29/24 23:59: POC Glucose 122 H 10/29/24 : Fluid Source Cancelled, Fluid Color Cancelled, Fluid Appearance Cancelled, Fluid WBC Cancelled, Fluid RBC Cancelled, Fluid Tot Cell Count Cancelled, Fld Polynuclear WBCs # Cancelled, Fld Polynuclear WBCs % Cancelled, Fluid Mononuclear WBCs Cancelled, Fld Mononuclear WBCs % Cancelled, Fluid Neutrophils Cancelled, Fluid Lymphocytes Cancelled, Fluid Monocytes Cancelled, Fluid Plasma Cells Cancelled, Fluid Macrophages Cancelled, Fld Mesothelial CellsCancelled, Fluid Other Cells Cancelled, Fl Pathologist Comment Cancelled, Fluid Comment 2 Cancelled 10/30/24 05:36: POC Glucose 108 H Micro: Microbiology 10/26/24 15:55 Blood Culture (Wb) - Arm Right Blood Culture - Preliminary No growth in 48 hours. 10/26/24 15:55 Blood Culture (Wb) - Arm Left Blood Culture - Preliminary No growth in 48 hours. 10/29/24 Unknown Fluid - Gallbladder Gram Stain - Final 10/27/24 09:24 Mucosa - Nasopharyngeal Coronavirus COVID-19 PCR - Final 10/27/24 01:25 Nasal Secretion MRSA (PCR) - Final 10/27/24 00:52 Mucosa - Nasopharyngeal Respiratory Panel (PCR) - Final 10/27/24 02:25 Urine, Random Legionella Antigen - Final 10/27/24 02:25 Urine, Random Streptococcus pneumoniae Antigen (M - Final Radiography Diagnostic Testing: Radiology Impression Biopsy CT 10/29/24 05:55 IMPRESSION: Successful drainage of the gallbladder, with drain left in place. Laboratory results pending. Reading Location: [place] [address] Physical Exam Const Constitutional Narrative: The patient is ill and fatigued in appearance. HEENT normocephalic and head/scalp atraumatic HEENT Narrative: Dry mucous membranes Eyes PERRL, EOMs intact bilaterally and conjunctivae normal Neck supple General: trachea midline Chest inspection of chest normal Resp Effort and Inspection: tachypneic Auscultation: rhonchi Cardio S1 normal heart sound and S2 normal heart sound Rate: tachycardic Rhythm: abnormal rhythm GI soft to palpation GI Narrative: Akash tube in place Extremity General Extremity: edema; Negative for clubbing Neuro CN's II-XII intact bilaterally and no focal motor deficits Psych Mood & Affect: flat affect Charges/Coding Visit Charges Inpatient E&M: 82575 Subs Hosp L2 10/30/24 1006 <Electronically signed by Goran Bowens DO> Cosigner Signature (if applicable): CC: ~ Signed [facility] Work Phone: [phone]) [phone] Consult note Author Gerard Asencio [facility] Note Date/Time October 29, 2024 2:41pm [facility] Medical Records Department [address] [place] [id number] Consultation 10/29/24 1439 MR#: [id number] Acct: [id number] Name: TAZ JOHNSON Rep #:[id number] : 1935 89 From: Gerard Asencio MD PCP: Dr. Dipak Aguilar, Status:AD M IN Location: ICU CVICU20 1-1 HPI Consult Data Date of Consult: 10/29/24 HPI Narrative Reason for Consultation: Unable to place Kern by staff HPI Narrative: TAZ JOHNSON, is a 89 M who presents to the hospital with elevated lactic acid sepsis acute cholecystitis nursing staff attempted to place a Kern catheter by history he self caths with a coud? 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 10 cc were put into the balloon, he will need to go home with a catheter after discharge and follow-up with his urologist. Call me with questions [facility] Medical History Type 2 diabetes mellitus Hyperlipidemia HTN (hypertension) Pulmonary hypertension Diverticulosis Insomnia Atrial fibrillation with RVR Histoplasmosis GERD (gastroesophageal reflux disease) History of skin cancer Solar keratosis Ulcer of right leg Burn scar Home Medications ?Medication ?Instructions ?Recorded ?Last Taken ?Type omeprazole 40 mg capsule,delayed 20 mg PO DAILY reflux 07/22/15 09/05/19 06:00 History release albuterol sulfate 90 mcg/actuation 1 puff PO Q6H short ness of breath 09/05/19 09/05/19 12:00 History breath activated powder inhaler multivitamin 1 tab PO QWEEK 09/25/19 [...] acid r eflux 09/30/23 09/30/23 History release furosemide 20 mg tablet 20 mg PO DAILY PRN swelling 10/26/24 Unknown History hydralazine 25 mg tablet mg PO 10/26/24 Unknown Histo ry ipratropium 0.5 mg-albuterol 3 mg 3 ml inhalation TID 10/26/24 Unknown History (2.5 mg base)/3 mL nebulization soln losartan 100 mg tablet 100 mg PO DAILY 10/26/24 Unk nown History magnesium 200 mg tablet 200 mg PO DAILY 10/26/24 Unk nown History metformin 500 mg tablet 500 mg PO BID 10/26/24 Unkno wn History rosuvastatin 20 mg tablet 20 mg PO DAILY 10/26/24 Unkn own History Allergy/AdvReac Type Severity Reaction Status Date / Time No Known Allergies Allergy Verified 10/26/24 16:44 Family History Mother Breast cancer Father Colon cancer Melanoma Brother COPD (chronic obstructive pulmonary disease) Grandfather Multiple myeloma Surgical History History of left hip replacement History of arthroscopic knee surgery History of skin graft History of transurethral resection of prostate History of right hip replacement History of rotator cuff surgery History of tonsillectomy and adenoidectomy Social History household members: spouse Smoking Status: Former smoker how long ago did patient quit smokin years ago alcohol intake: current alcohol intake frequency: a few times a week Alcohol type: wine substance use type: does not use caffeine: No Lab / Micro Data 10/29/24 03:07 10/29/24 03:07 Labs: Laboratory Results - last 24 hr 10/28/24 18:04: POC Glucose 124 H 10/28/24 23:07: POC Glucose 148 H 10/29/24 03:07: WBC 16.8 H, RBC 4.24 L, Hgb 12.7 L, Hct 37.8 L, MCV 89.2, MCH 30.0, MCHC 33.6, RDW Std Deviation 50.9 H, RDW Coeff of Pollo 15.6 H, Plt Count 177, MPV 10.1, Immature Gran % (Auto) 1.900 H, Neut % (Auto) 90.7 H, Lymph % (Auto) 3.5 L, [place] % (Auto) 3.5, Eos % (Auto) 0.2, Baso % (Auto) 0.2, Absolute Neuts (auto) 15.2 H, Absolute Lymphs (auto) 0.59 L, Nucleated RBC % 0, Toxic Granulation 1+, Dohle Bodies 1+, Platelet Estimate ADEQUATE, Polychromasia 1+, Anisocytosis 1+, Crenated Cell 3+, Acanthocytes (Spur) 1+, Sodium 140, Potassium4.2, Chloride 110 H, Carbon Dioxide 20.9 L, Anion Gap 10, BUN 30 H, Creatinine 1.46 H, Estim Creat Clear Calc 42.19 L, Est GFR (MDRD) Non-Af 46 L, BUN/Creatinine Ratio 20.4 H, Glucose 173 H, Hemoglobin A1c 6.3 H, Calcium 9.0 10/29/24 05:23: POC Glucose 134 H 10/29/24 08:30: PT 21.7 H, INR 1.9, APTT 48.5 H 10/29/24 12:00: POC Glucose 106 10/29/24 : Fluid Source Cancelled, Fluid Color Cancelled, Fluid Appearance Cancelled, Fluid WBC Cancelled, Fluid RBC Cancelled, Fluid Tot Cell Count Cancelled, Fld Polynuclear WBCs # Cancelled, Fld Polynuclear WBCs % Cancelled, Fluid Mononuclear WBCs Cancelled, Fld Mononuclear WBCs % Cancelled, Fluid Neutrophils Cancelled, Fluid Lymphocytes Cancelled, Fluid Monocytes Cancelled, Fluid Plasma Cells Cancelled, Fluid Macrophages Cancelled, Fld Mesothelial CellsCancelled, Fluid Other Cells Cancelled, Fl Pathologist Comment Cancelled, Fluid Comment 2 Cancelled Imaging Radiology Impression Biopsy CT 10/29/24 05:55 IMPRESSION: Successful drainage of the gallbladder, with drain left in place. Laboratory results pending. Reading Location: [place] [address] 10/29/24 144 <Electronically signed by Gerard Asencio MD> Cosigner Signature (if applicable): CC: Dr. Dipak Aguilar DO~ Signed [facility] Work Phone: [phone]) [phone] Progress note Author Khai Bose [facility] Note Date/Time October 29, 2024 1:46pm [facility] Medical Records Department [address] [place] [address] Progress Note - Hospitalist 10/29/24921 MR#: [id number] Acct: [id number] Name: TAZ JOHNSON Rep #:[id number] : 1935 89 From: Khai Nelson PCP: Dr. Dipak Aguilar, DO Status:AD M IN Location: ICU CVICU20 1- Reason for Visit Chief Complaint: Abdominal pain, N/V. Objective Data Objective Data Vital Signs: Vital Signs Temp Pulse Resp BP Pulse Ox O2 Del Method O2 Flow Rate 98.0 F 120 H 24 H 127/86 H 94 Nasal Cannula 4 10/29/24 03:00 10/29/24 07:28 10/29/24 07:17 10/29/24 07:00 10/29/24 07:17 10/29/24 07:17 10/29/24 07:17 Oxygen Flow Rate (L/min) 4 Oxygen Delivery Method Nasal Cannula Weight: 211 lb 6.773 oz Body Mass Index (BMI) 28.6 Intake & Output: Intake and Output for Last 24 Hours 10/27/24 10/28/24 10/29/24 23:59 23:59 23:59 Intake Total 4557.75 / 4557.75 3646.34 / 3646.34 1415 / 1415 Output Total 400 / 400 760 / 760 30 / 30 Balance 4157.75 / 4157.75 2886.34 / 2886.34 1385 / 1385 Lab / Micro Data 10/29/24 03:07 10/29/24 03:07 Labs: Laboratory Results - last 24 hr 10/28/24 11:55: POC Glucose 127 H 10/28/24 13:00: Vancomycin Trough 12.2 10/28/24 18:04: POC Glucose 124 H 10/28/24 23:07: POC Glucose 148 H 10/29/24 03:07: WBC 16.8 H, RBC 4.24 L, Hgb 12.7 L, Hct 37.8 L, MCV 89.2, MCH 30.0, MCHC 33.6, RDW Std Deviation 50.9 H, RDW Coeff of Pollo 15.6 H, Plt Count 177, MPV 10.1, Immature Gran % (Auto) 1.900 H, Neut % (Auto) 90.7 H, Lymph % (Auto) 3.5 L, [place] % (Auto) 3.5, Eos % (Auto) 0.2, Baso % (Auto) 0.2, Absolute Neuts (auto) 15.2 H, Absolute Lymphs (auto) 0.59 L, Nucleated RBC % 0, Toxic Granulation 1+, Dohle Bodies 1+, Platelet Estimate ADEQUATE, Polychromasia 1+, Anisocytosis 1+, Crenated Cell 3+, Acanthocytes (Spur) 1+, Sodium 140, Potassium4.2, Chloride 110 H, Carbon Dioxide 20.9 L, Anion Gap 10, BUN 30 H, Creatinine 1.46 H, Estim Creat Clear Calc 42.19 L, Est GFR (MDRD) Non-Af 46 L, BUN/Creatinine Ratio 20.4 H, Glucose 173 H, Hemoglobin A1c 6.3 H, Calcium 9.0 10/29/24 05:23: POC Glucose 134 H 10/29/24 08:30: PT 21.7 H, INR 1.9, APTT 48.5 H Micro: Microbiology 10/27/24 09:24 Mucosa - Nasopharyngeal Coronavirus COVID-19 PCR - Final 10/27/24 01:25 Nasal Secretion MRSA (PCR) - Final 10/27/24 00:52 Mucosa - Nasopharyngeal Respiratory Panel (PCR) - Final 10/27/24 02:25 Urine, Random Legionella Antigen - Final 10/27/24 02:25 Urine, Random Streptococcus pneumoniae Antigen (M - Final ABG Data ABG results: ABG 10/28/24 14:35 Specimen Type ART Sample Site L Radial pH 7.43 Bicarbonate Actual 28.7 H Total CO2 30 Base Excess 4 H O2 Saturation 94 L O2 % 2.0 ABG pCO2 43.3 ABG pO2 70 L Richard Test Positive O2 Delivery Device CPAP Vent Mode Not entered Radiography Diagnostic Testing: Radiology Impression Abdomen X-Ray 10/28/24 09:30 IMPRESSION: Mild constipation. Probable left lung base infiltrate/pleural fluid. Reading Location: [id number] Chest X-Ray 10/28/24 13:11 IMPRESSION: As above. Reading Location: [address] Chest X-Ray 10/28/24 14:10 IMPRESSION: Right PICC as above. Reading Location: [address] Physical Exam Narrative Seen and examined Urine retention overnight, had to be catheterized, coud?'s catheter. As per thewife patient had history of urinary retention and self-catheterization about a year ago and then got better. He follows urologist outside. Exact diagnosis she could not tell me but probably may be BPH/weak bladder/detrusor/detrusor sphincter dyssynergy Shortness of breath similar to yesterday coarse breathing from upper respiratorysecretions, not able to cough out. Patient stated he also did not move bowel or flatus for 3 days but had smear yesterday. He also mildly confused. near the bedside. A-fib, heart rate controlled. Physical exam General: Awake, confused with time. HEENT: Atraumatic, PERRLA, EOMI, Normocephalic. Oral: No Gingival or Mucosal Lesions/ Ulcerations Neck: Supple, No JVD, Negative Carotid Bruits Chest wall/Lungs: Air entry diminished in bilateral lung bases. Bilateral coarse crepitation right more than left Cardiovascular: irregular rate and rhythm no M/G/R Abdomen: Bowel Sounds sluggish, Soft, tenderness present on right upper quadrant, abdomen distended : Deep luana-colored. Blood and clots. No renal angle tenderness. No suprapubic tenderness. Extremities: No edema, Capillary Refill Less than 3 Seconds Skin: No rashes, No breakdown Musculoskeletal: No Tenderness to Palpation of Joints or Extremities. Chronic bony scar on bilateral lower legs. Neurological: Cranial nerves II-XII grossly intact, DTR 2+/4. No acute focal neurological deficit. Psych/Mental Status: Flat affect, retrograde amnesia Assessment & Plan Assessment/Plan (1) Sepsis: (2) Acute cholecystitis: PLAN: Plan The patient is an 89 y/o M #1. Sepsis, probably acute cholecystitis with cholelithiasis/bilateral pneumonia: Patient had tachycardia, tachypnea, hypoxic lactic acidosis and leukocytosis. Blood pressure still maintained. Patient on sepsis protocol, broad-spectrum IV antibiotic as mentioned in H&P. Sepsis note reviewed in H&P. Surgeon is being consulted. Line Assembler consulted. Urinary antigens, respiratory panel and MRSA nasal screen are negative. Liver chemistry shows normal transaminases alkaline phosphatase but total bilirubin 1.36 mildly elevated 10/28:No fever. Leukocytosis. With multiple comorbidities, there is high risk forcholecystectomy for acute cholecystitis with cholelithiasis. Agreed with the surgeon, for recommendation of percutaneous cholecystostomy tube and maybe latercholecystectomy and patient is physically more stronger. Patient currently has questionable pneumonia with a right-sided rib fracture after fall about a month ago. Dyspnea at rest. 10/29: Patient cholecystostomy tube placed. Leukocytosis improving. Cholecystostomy fluid sent for culture #2. 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 Patient also had fall about a month ago with poor respiratory excursion. Chest CT initially reviewed and shows RML nodular opacity measuring 1.9 x 2.5 cm, interlobular septal and peribronchial interstitial thickening bilaterally and dependent opacity in bilateral lung bases. MRSA nasal screen, respiratory panel, urinary antigen and COVID PCR are negative. Blood culture pending. 10/28: URI mucous plugging. Mucomyst inhalation added. On bronchodilator and guaifenesin. 10/29: Patient still congested with upper airway mucus. #3. Recent mechanical fall on anticoagulant therapy: Patient per report from fell to the right side and not surprisingly on CT imaging demonstrated a nonacute right anterior lateral 6th through 9th rib fractures as well as old lateral left 10th rib fracture, holding anticoagulant therapy as noted, PT/OT/case management consulted for discharge planning. #4. PAF with RVR: Likely secondary to his acute illness #1, improved rate in the ED with ED IV labetalol and lopressor, will continue metoprolol as able, holding Eliquis given surgical intervention needs. Most recently noted echocardiogram 10/01/2023 with EF 70%, mildly enlarged LA, trivial MVI with repeat echo requested. 10/28: Heart rate is controlled 10/29: Heart rate variable, 110-136 point respiratory 22 probably related to acutecholecystitis. On metoprolol oral scheduled and IV as needed. #5. Chronic Kidney Disease Stage IIIa: Admission BUN/Cr 20/1.27, GFR 54, baseline renal function primarily more recently noted 1.2-1.6, most recently 10/01/2023 which is unfortunately remote noted to be 1.47, repeat CMP in a.m. to further elucidate what patient's level is currently. 10/28: BUN/creatinine 29/1.63. Creatinine went up from 1.27-1.63. Abdominal x-ray ordered to look for bowel distention probably third volume sequestration. Diabetes mellitus type II: Hold oral home regimen, n.p.o. status given presentation as noted, maintain on every 6 hours accu checks w/ ISS. NPO. 10/28: Glucose is 111. 10/29: A1c 6.3%. Glucose 173. #9. Hypertension: BP 150/100 #10. Hyperlipidemia: Patient is n.p.o.. Will need necessary medications #11. Hx CVA w/ associated memory impairment: Hold oral metoprolol, IV metoprolol as needed #12. Former tobacco use: Encouraged continued tobacco cessation. #13. BPH: From records noted status post TURP status, not on any chronic regimen, monitor for retention. #14. GERD: maintain on IV PPI. #15. DVT prophylaxis: SCDs, holding Eliquis given need for intervention. #16. CODE status: Patient HCPOA is his who is present and living will is currently in place. Discussed CODE status at length including difference betweenFULL code, DNR-CCA and DNR-CC status. Charges/Coding Visit Charges Inpatient E&M: 72717 Subs Hosp L3 10/29/24 1346 <Electronically signed by Khai Bose MD> Cosigner Signature (if applicable): CC: ~ Signed [facility] Work Phone: 1(699) 967-584409-08-2025 [facility]09-08-2025 Radiology Diagnostic study [facility]09-08-2025 Progress note Author Ilan Oliver [facility] Note Date/Time October 29, 2024 10:30am [facility] Medical Records Department [address] [place] [address] Progress Note - Line Assembler 10/29/24 1019 MR#: [id number] Acct: [id number] Name: TAZ JOHNSON Rep #:[id number] : 1935 89 From: Ilan Nelson PCP: Dr. Dipak Aguilar, DO Status:AD M IN Location: ICU CVICU20 1-1 Objective Data Objective Data Vital Signs: Vital Signs Last response 3 Temperature 36.7 C 10/29/24 08:00 Temperature Source Temporal 10/29/24 08:00 Pulse Rate 104 H 10/29/24 09:32 Pulse Strength Normal (2+) 10/29/24 09:22 Respiratory Rate 22 H 10/29/24 09:32 Respiratory Effort Normal, Non-Labored 10/29/24 08:00 Respiratory Depth Normal 10/29/24 08:00 Respiratory Pattern Normal 10/29/24 09:29 Blood Pressure 158/105 H 10/29/24 09:32 Blood Pressure Mean 122 10/29/24 09:00 Blood Pressure Source Monitor 10/29/24 09:00 Blood Pressure Position Semi-Fowlers 10/29/24 09:00 Blood Pressure Location Left Arm 10/29/24 09:00 Baseline BP 158/105 10/29/24 09:32 Pulse Ox 93 10/29/24 09:32 Oxygen Delivery Method Nasal Cannula 10/29/24 09:32 Oxygen Flow Rate (L/min) 4 10/29/24 09:32 I&O: I&O Last 24 Hours 3 10/28/24 10/28/24 10/29/24 11:59 23:59 11:59 Intake Total 1592.42 / 3646.34 2053.92 / 3646.34 1720 / 1720 Output Total 600 / 760 160 / 760 30 / 30 Balance 992.42 / 2886.34 1893.92 / 2886.34 1690 / 1690 I&O: Total Stay 3 10/26/24 16:39 thru 10/29/24 10:13 Intake Total 9974.09 Output Total 1190 Balance 8784.09 Current Meds Ordered / Administered: Current meds ordered / Administered 3 Generic Name Dose Route Start Last Admin Trade Name Freq PRN Reason Stop Dose Admin Acetaminophen 650 mg 10/27/24 00:32 Acetaminophen 325 Mg Tablet PO Q4H PRN PRN Fever, pain 1-10/10 Acetylcysteine 800 mg 10/28/24 09:30 10/29/24 07:16 Acetylcysteine 800 Mg/4 Ml Vial.Neb. INHALATION 800 mg Q4H.RT SOLEDAD Administration Atorvastatin Calcium 40 mg 10/27/24 22:00 10/28/24 20:41 Atorvastatin Calcium 40 Mg Tablet PO 40 mg QHS SOLEDAD Administration Budesonide 0.5 mg 10/27/24 08:00 10/29/24 07:16 Budesonide Respules 0.5 Mg/2 Ml Ampul.Neb. INHALATION 0.5 mg BID.RT SOLEDAD Administration Calamine/Phenol 1 applic 10/27/24 10:00 10/29/24 07:39 Menthol/Lanolin/Calamine/Znox 113 Gm Tube TOPICAL 1 applic 4X/DAY SOLEDAD Administration Protocol Fentanyl Citrate 25 - 50 mcg 10/29/24 09:00 10/29/24 10:08 Fentanyl 100 Mcg/2 Ml Ampul IV 10/29/24 23:59 25 mcg UD PRN Administration Procedural Pain Control Flumazenil 0.2 mg 10/29/24 09:00 Flumazenil 0.5 Mg/5 Ml Vial IV Q1M PRN Respirations <10 per minute Glucagon 1 mg 10/27/24 00:32 Glucagon 1 Mg/Ml Syringe IM X1 PRN HYPOGLYCEMIA Protocol Guaifenesin 10 ml 10/28/24 09:30 10/29/24 05:25 Guaifenesin 10 Ml Udc (200mg/10ml) PO 10 ml Q4H SOLEDAD Administration Haloperidol Lactate 0.5 mg 10/29/24 02:48 10/29/24 02:56 Haloperidol Lactate 5 Mg/Ml Vial IV 0.5 mg Q4H PRN PRN Administration AGITATION Protocol Hydralazine HCl 10 mg 10/27/24 00:32 Hydralazine 20 Mg/Ml Vial IV Q4H PRN PRN SBP > 160 Protocol Pantoprazole Sodium 40 mg/ 100 mls @ 330 mls/hr 10/27/24 00:32 10/29/24 08:40 Sodium Chloride IV Infused Q12 SOLEDAD Infusion Piperacillin Sod/Tazobactam 50 mls @ 12.5 mls/hr 10/27/24 06:00 10/29/24 09:40 Sod 3.375 gm/ Sodium Chloride IV Infused Q8 SOLEDAD Infusion Azithromycin 500 mg/ Sodium 255 mls @ 255 mls/hr 10/27/24 10:00 10/29/24 10:13 Chloride IV 11/01/24 10:01 Infused Q24 SOLEDAD Infusion Dextrose 250 mls @ 0 mls/hr 10/27/24 00:32 Dextrose 10%-Water IV .Q0M PRN HYPOGLYCEMIA Protocol As Directed Sodium Chloride 250 mls @ 15 mls/hr 10/27/24 01:21 IV .[id number] PRN Saline Flush Sodium Chloride 250 mls @ 15 mls/hr 10/27/24 01:21 10/28/24 21:19 IV 0 mls/hr .[id number] PRN Infusion Additional IVPB Infusion Dextrose/Lactated Ringer's 1,000 mls @ 75 mls/hr 10/27/24 14:45 10/29/24 09:18 IV 75 mls/hr .[id number] SOLEDAD Administration Sodium Chloride 250 mls @ 15 mls/hr 10/29/24 09:00 IV 10/29/24 23:59 .[id number] SOLEDAD Insulin Human Lispro 0 unit 10/27/24 00:32 10/29/24 05:25 Insulin Lispro 100 Unit/Ml Insuln.Pen SC Not Given Q6 SOLEDAD Protocol Ipratropium [place] 0.5 mg 10/27/24 00:32 10/29/24 07:16 Ipratropium 0.5 Mg/2.5 Ml Solution INHALATION 0.5 mg Q4HWA.RT SOLEDAD Administration Metoprolol Tartrate 50 mg 10/27/24 10:00 10/28/24 20:41 Metoprolol Tartrate 50 Mg Tablet PO 50 mg BID SOLEDAD Administration Protocol Metoprolol Tartrate 5 mg 10/27/24 07:41 Metoprolol Tartrate 5 Mg/5 Ml Vial IV Q6H PRN PRN TO CONTROL HEART RATE Protocol Midazolam HCl 1 - 2 mg 10/29/24 09:00 Midazolam 2 Mg/2 Ml Syringe IV 10/29/24 23:59 UD PRN Procedural Sedation Morphine Sulfate 2 mg 10/27/24 00:32 10/28/24 23:57 Morphine 2 Mg/Ml Syringe IV 2 mg Q3H PRN PRN Administration Pain Score 6-10 Naloxone HCl 0.02 mg 10/29/24 09:00 Naloxone 0.02mg/0.5ml Syringe Kit IV Q1M PRN Respiratory Depression Ondansetron HCl 4 mg 10/27/24 00:32 10/27/24 11:27 Ondansetron 4 Mg/2 Ml Vial IV 4 mg Q8H PRN PRN Administration NAUSEA/VOMITING Oxycodone HCl 2.5 mg 10/27/24 00:32 10/28/24 17:04 Oxycodone 5 Mg Tablet PO 2.5 mg Q4H PRN PRN Administration Pain Score 4-10 Senna/Docusate Sodium 2 tablet 10/28/24 09:30 10/28/24 20:42 Senna/Docusate Sodium 1 Tablet PO 2 tablet BID SOLEDAD Administration Sodium Chloride 10 - 40 ml 10/27/24 01:21 10/29/24 10:08 0.9% Saline Lock 10 Ml Syringe IV 10 ml UD PRN Administration SALINE FLUSH Lab / Micro Data 10/29/24 03:07 10/29/24 03:07 Labs: Laboratory Results - last 24 hr 10/28/24 11:55: POC Glucose 127 H 10/28/24 13:00: Vancomycin Trough 12.2 10/28/24 18:04: POC Glucose 124 H 10/28/24 23:07: POC Glucose 148 H 10/29/24 03:07: WBC 16.8 H, RBC 4.24 L, Hgb 12.7 L, Hct 37.8 L, MCV 89.2, MCH 30.0, MCHC 33.6, RDW Std Deviation 50.9 H, RDW Coeff of Pollo 15.6 H, Plt Count 177, MPV 10.1, Immature Gran % (Auto) 1.900 H, Neut % (Auto) 90.7 H, Lymph % (Auto) 3.5 L, [place] % (Auto) 3.5, Eos % (Auto) 0.2, Baso % (Auto) 0.2, Absolute Neuts (auto) 15.2 H, Absolute Lymphs (auto) 0.59 L, Nucleated RBC % 0, Toxic Granulation 1+, Dohle Bodies 1+, Platelet Estimate ADEQUATE, Polychromasia 1+, Anisocytosis 1+, Crenated Cell 3+, Acanthocytes (Spur) 1+, Sodium 140, Potassium4.2, Chloride 110 H, Carbon Dioxide 20.9 L, Anion Gap 10, BUN 30 H, Creatinine 1.46 H, Estim Creat Clear Calc 42.19 L, Est GFR (MDRD) Non-Af 46 L, BUN/Creatinine Ratio 20.4 H, Glucose 173 H, Hemoglobin A1c 6.3 H, Calcium 9.0 10/29/24 05:23: POC Glucose 134 H 10/29/24 08:30: PT 21.7 H, INR 1.9, APTT 48.5 H ABG Data ABG results: ABG 10/28/24 14:35 Specimen Type ART Sample Site L Radial pH 7.43 Bicarbonate Actual 28.7 H Total CO2 30 Base Excess 4 H O2 Saturation 94 L O2 % 2.0 ABG pCO2 43.3 ABG pO2 70 L Richard Test Positive O2 Delivery Device CPAP Vent Mode Not entered Imaging Radiology Impression Chest X-Ray 10/28/24 13:11 IMPRESSION: As above. Reading Location: [address] Chest X-Ray 10/28/24 14:10 IMPRESSION: Right PICC as above. Reading Location: [address] Assessment and Plan . Assessment and plan: Cholecystitis Atrial Fibrillation with RVR Sepsis Hypoxemic Respiratory Failure ? Pna Lactic Acidosis CKD COPD DM PMH: BPH s/p TURP, Histoplasmosis, CVA 2023, COVID Pna 03/2024 PLAN: -agree with plans for C-tube -rate control for afib likely will improve with biliary drainage -Empiric vanc/zosyn/azithro. f/u Cx; will dc vanc after AM dose (discussed with pharmacy) -lactate improved -follow renal indices closely -Budesonide, atrovent nebs -wean O2 as able; once C-tube is in we may be able to begin mobilizing him -assess volume status daily; may require some diuresis as hemodynamics tighten up FEN/GI: NPO Proph DVT/GI: Holding eliquis pending intervention for GB Critical Care Time: 31 minutes The entirety of this encounter was done via Telemedicine Physical Exam Narrative G-elderly male, ill-appearing but NAD ENT- anicteric CV- tachy/irr, no mrg L- limited effort, decreased in bases but no accessory use Ab- s, some discomfort to palpation, no peritoenal signs Ext- no cce Neuro- no focal deficits Const alert General Appearance: cooperative Subjective Subjective No acute events overnight. HR currently in 110s. Some RUQ pain. 10/29/24 1030 <Electronically signed by Ilan Oliver MD> Cosigner Signature (if applicable): CC: ~ Signed [facility] Work Phone: 1(385) 564-123109-08-2025 Progress note Author Kylee Rodriguez [facility] Note Date/Time October 29, 2024 9:58am [facility] Medical Records Department [address] [place] [address] Progress Note - Surgery 10/29/24951 MR#: [id number] Acct: [id number] Name: TAZ JOHNSON Rep #:[id number] : 1935 89 From: Kylee FLOYD PA-C PCP: Dr. Dipak Aguilar, DO Status:AD M IN Location: ICU CVICU20 1-1 Subjective Subjective Patient evaluated resting comfortably in bed receiving a breathing treatment. [place] abdominal pain in the right upper quadrant. Objective Data Objective Data Vital Signs: Vital Signs Temp Pulse Resp BP Pulse Ox O2 Del Method O2 Flow Rate 98.0 F 104 H 22 H 158/105 H 93 Nasal Cannula 4 10/29/24 08:00 10/29/24 09:32 10/29/24 09:32 10/29/24 09:32 10/29/24 09:32 10/29/24 09:32 10/29/24 09:32 Oxygen Flow Rate (L/min) 4 Oxygen Delivery Method Nasal Cannula Weight: 211 lb 6.773 oz Body Mass Index (BMI) 28.6 Intake & Output: Intake and Output for Last 24 Hours 10/27/24 10/28/24 10/29/24 23:59 23:59 23:59 Intake Total 4557.75 / 4557.75 3646.34 / 3646.34 1465 / 1465 Output Total 400 / 400 760 / 760 30 / 30 Balance 4157.75 / 4157.75 2886.34 / 2886.34 1435 / 1435 Lab / Micro Data 10/29/24 03:07 10/29/24 03:07 Labs: Laboratory Results - last 24 hr 10/28/24 11:55: POC Glucose 127 H 10/28/24 13:00: Vancomycin Trough 12.2 10/28/24 18:04: POC Glucose 124 H 10/28/24 23:07: POC Glucose 148 H 10/29/24 03:07: WBC 16.8 H, RBC 4.24 L, Hgb 12.7 L, Hct 37.8 L, MCV 89.2, MCH 30.0, MCHC 33.6, RDW Std Deviation 50.9 H, RDW Coeff of Pollo 15.6 H, Plt Count 177, MPV 10.1, Immature Gran % (Auto) 1.900 H, Neut % (Auto) 90.7 H, Lymph % (Auto) 3.5 L, [place] % (Auto) 3.5, Eos % (Auto) 0.2, Baso % (Auto) 0.2, Absolute Neuts (auto) 15.2 H, Absolute Lymphs (auto) 0.59 L, Nucleated RBC % 0, Toxic Granulation 1+, Dohle Bodies 1+, Platelet Estimate ADEQUATE, Polychromasia 1+, Anisocytosis 1+, Crenated Cell 3+, Acanthocytes (Spur) 1+, Sodium 140, Potassium4.2, Chloride 110 H, Carbon Dioxide 20.9 L, Anion Gap 10, BUN 30 H, Creatinine 1.46 H, Estim Creat Clear Calc 42.19 L, Est GFR (MDRD) Non-Af 46 L, BUN/Creatinine Ratio 20.4 H, Glucose 173 H, Hemoglobin A1c 6.3 H, Calcium 9.0 10/29/24 05:23: POC Glucose 134 H 10/29/24 08:30: PT 21.7 H, INR 1.9, APTT 48.5 H Micro: Microbiology 10/27/24 09:24 Mucosa - Nasopharyngeal Coronavirus COVID-19 PCR - Final 10/27/24 01:25 Nasal Secretion MRSA (PCR) - Final 10/27/24 00:52 Mucosa - Nasopharyngeal Respiratory Panel (PCR) - Final 10/27/24 02:25 Urine, Random Legionella Antigen - Final 10/27/24 02:25 Urine, Random Streptococcus pneumoniae Antigen (M - Final ABG Data ABG results: ABG 10/28/24 14:35 Specimen Type ART Sample Site L Radial pH 7.43 Bicarbonate Actual 28.7 H Total CO2 30 Base Excess 4 H O2 Saturation 94 L O2 % 2.0 ABG pCO2 43.3 ABG pO2 70 L Richard Test Positive O2 Delivery Device CPAP Vent Mode Not entered Radiography Diagnostic Testing: Radiology Impression Abdomen X-Ray 10/28/24 09:30 IMPRESSION: Mild constipation. Probable left lung base infiltrate/pleural fluid. Reading Location: [id number] Chest X-Ray 10/28/24 13:11 IMPRESSION: As above. Reading Location: [id number] Chest X-Ray 10/28/24 14:10 IMPRESSION: Right PICC as above. Reading Location: [id number] Physical Exam GI GI Narrative: Abdomen- soft, tenderness in the RUQ with guarding Assessment & Plan Assessment/Plan (1) Acute cholecystitis: PLAN: I am following this patient in conjunction with Dr. Cavazos. He will independently evaluate this patient. Plan for a akash tube today in radiology Patient with multiple co-morbidities and at higher risk for surgery We will continue to moniotr this patient Charges/Coding Visit Charges Inpatient E&M: 85689 Subs Hosp L2 10/29/24 0958 <Electronically signed by Kylee FLOYD PA-C> Cosigner Signature (if applicable): CC: ~ Signed [facility] Work Phone: [phone]) [phone] Progress note Author Khai Bose [facility] Note Date/Time October 28, 2024 3:12pm [facility] Medical Records Department [address] [place] [address] Progress Note - Hospitalist 10/28/2424 MR#: [id number] Acct: [id number] Name: TAZ JOHNSON Rep #:[id number] : 1935 89 From: Khai Nelson PCP: Dr. Dipak Aguilar, DO Status:AD M IN Location: ICU CVICU20 1- Reason for Visit Chief Complaint: Abdominal pain, N/V. Objective Data Objective Data Vital Signs: Vital Signs Temp Pulse Resp BP Pulse Ox O2 Del Method O2 Flow Rate 98.4 F 89 21 H 137/77 H 96 Nasal Cannula 2 10/28/24 04:00 10/28/24 07:00 10/28/24 07:00 10/28/24 06:00 10/28/24 07:00 10/28/24 07:00 10/28/24 07:00 Oxygen Flow Rate (L/min) 2 Oxygen Delivery Method Nasal Cannula Weight: 196 lb 13.965 oz Body Mass Index (BMI) 26.6 Intake & Output: Intake and Output for Last 24 Hours 10/26/24 10/27/24 10/28/24 23:59 23:59 23:59 Intake Total 50 / 50 4557.75 / 4557.75 1315 / 1315 Output Total 400 / 400 Balance 50 / 50 4157.75 / 4157.75 1315 / 1315 Lab / Micro Data 10/28/24 05:39 10/28/24 05:39 Labs: Laboratory Results - last 24 hr 10/27/24 11:43: POC Glucose 111 H 10/27/24 17:59: POC Glucose 111 H 10/28/24 05:38: POC Glucose 188 H 10/28/24 05:39: WBC 18.7 H, RBC 4.09 L, Hgb 12.4 L, Hct 37.0 L, MCV 90.5, MCH 30.3, MCHC 33.5, RDW Std Deviation 52.0 H, RDW Coeff of Pollo 15.7 H, Plt Count 191, MPV 10.3, Immature Gran % (Auto) 1.400 H, Neut % (Auto) 90.7 H, Lymph % (Auto) 3.9 L, [place] % (Auto) 3.2, Eos % (Auto) 0.5, Baso % (Auto) 0.3, Absolute Neuts (auto) 16.9 H, Absolute Lymphs (auto) 0.73 L, Nucleated RBC % 0, Sodium 139, Potassium 4.1, Chloride 108, Carbon Dioxide 18.1 L, Anion Gap 13, BUN 29 H, Creatinine 1.63 H, Estim Creat Clear Calc 34.38 L, Est GFR (MDRD) Non-Af 40 L, BUN/Creatinine Ratio 17.6, Glucose 205 H, Calcium 8.5, Magnesium 1.6, Total Bilirubin 1.39 H, AST 20, ALT 8, Alkaline Phosphatase 64, Total Protein 5.8L, Albumin 3.5, Globulin 2.3, Albumin/Globulin Ratio 1.5, TSH 1.440, Free T4 0.90 Micro: Microbiology 10/27/24 09:24 Mucosa - Nasopharyngeal Coronavirus COVID-19 PCR - Final 10/27/24 01:25 Nasal Secretion MRSA (PCR) - Final 10/27/24 00:52 Mucosa - Nasopharyngeal Respiratory Panel (PCR) - Final 10/27/24 02:25 Urine, Random Legionella Antigen - Final 10/27/24 02:25 Urine, Random Streptococcus pneumoniae Antigen (M - Final Radiography Diagnostic Testing: Radiology Impression Echocardiogram 10/27/24 00:32 Interpretation Summary The estimated ejection fraction is 70 %. The left atrium is mildly enlarged. The right atrium is mildly enlarged. Trivial mitral valve insufficiency. Ordering Physician: Fernanda Triplett Referring Physician: Dipak Aguilar Performed By: Citlalli Arzate, REBECACS, RVT Physical Exam Narrative Seen and examined Patient is short of breath like yesterday. Has coarse breathing due to upper respiratory mucus, not able to cough out, weak cough. Patient stated he also did not move bowel or flatus for 3 days. He also mildly confused. near the bedside. A-fib, heart rate controlled. Physical exam General: Awake, confused with time. HEENT: Atraumatic, PERRLA, EOMI, Normocephalic. Oral: No Gingival or Mucosal Lesions/ Ulcerations Neck: Supple, No JVD, Negative Carotid Bruits Chest wall/Lungs: Air entry diminished in bilateral lung bases. Bilateral coarse crepitation right more than left Cardiovascular: irregular rate and rhythm no M/G/R Abdomen: Bowel Sounds sluggish, Soft, tenderness present on right upper quadrant, abdomen distended : Deep luana-colored. No renal angle tenderness. No suprapubic tenderness. Extremities: No edema, Capillary Refill Less than 3 Seconds Skin: No rashes, No breakdown Musculoskeletal: No Tenderness to Palpation of Joints or Extremities. Chronic bony scar on bilateral lower legs. Neurological: Cranial nerves II-XII grossly intact, DTR 2+/4. No acute focal neurological deficit. Psych/Mental Status: Flat affect, retrograde amnesia Assessment & Plan Assessment/Plan (1) Sepsis: (2) Acute cholecystitis: PLAN: Plan The patient is an 89 y/o M #1. Sepsis, probably acute cholecystitis with cholelithiasis/bilateral pneumonia: Patient had tachycardia, tachypnea, hypoxic lactic acidosis and leukocytosis. Blood pressure still maintained. Patient on sepsis protocol, broad-spectrum IV antibiotic as mentioned in H&P. Sepsis note reviewed in H&P. Surgeon is being consulted. Line Assembler consulted. Urinary antigens, respiratory panel and MRSA nasal screen are negative. Liver chemistry shows normal transaminases alkaline phosphatase but total bilirubin 1.36 mildly elevated 10/28:No fever. Leukocytosis. With multiple comorbidities, there is high risk forcholecystectomy for acute cholecystitis with cholelithiasis. Agreed with the surgeon, for recommendation of percutaneous cholecystostomy tube and maybe latercholecystectomy and patient is physically more stronger. Patient currently has questionable pneumonia with a right-sided rib fracture after fall about a month ago. Dyspnea at rest. #2. 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 Patient also had fall about a month ago with poor respiratory excursion. Chest CT initially reviewed and shows RML nodular opacity measuring 1.9 x 2.5 cm, interlobular septal and peribronchial interstitial thickening bilaterally and dependent opacity in bilateral lung bases. MRSA nasal screen, respiratory panel, urinary antigen and COVID PCR are negative. Blood culture pending. 10/28: URI mucous plugging. Mucomyst inhalation added. On bronchodilator and guaifenesin. #3. Recent mechanical fall on anticoagulant therapy: Patient per report from fell to the right side and not surprisingly on CT imaging demonstrated a nonacute right anterior lateral 6th through 9th rib fractures as well as old lateral left 10th rib fracture, holding anticoagulant therapy as noted, PT/OT/case management consulted for discharge planning. #4. PAF with RVR: Likely secondary to his acute illness #1, improved rate in the ED with ED IV labetalol and lopressor, will continue metoprolol as able, holding Eliquis given surgical intervention needs. Most recently noted echocardiogram 10/01/2023 with EF 70%, mildly enlarged LA, trivial MVI with repeat echo requested. 10/28: Heart rate is controlled #5. Chronic Kidney Disease Stage IIIa: Admission BUN/Cr 20/1.27, GFR 54, baseline renal function primarily more recently noted 1.2-1.6, most recently 10/01/2023 which is unfortunately remote noted to be 1.47, repeat CMP in a.m. to further elucidate what patient's level is currently. 10/28: BUN/creatinine 29/1.63. Creatinine went up from 1.27-1.63. Abdominal x-ray ordered to look for bowel distention probably third volume sequestration. Diabetes mellitus type II: Hold oral home regimen, n.p.o. status given presentation as noted, maintain on every 6 hours accu checks w/ ISS. NPO. 10/28: Glucose is 111. #9. Hypertension: BP 150/100 #10. Hyperlipidemia: Patient is n.p.o.. Will need necessary medications #11. Hx CVA w/ associated memory impairment: Hold oral metoprolol, IV metoprolol as needed #12. Former tobacco use: Encouraged continued tobacco cessation. #13. BPH: From records noted status post TURP status, not on any chronic regimen, monitor for retention. #14. GERD: Will maintain on IV PPI. #15. DVT prophylaxis: SCDs, holding Eliquis given need for intervention. #16. CODE status: Patient FRANKLIN is his who is present and living will is currently in place. Discussed CODE status at length including difference betweenFULL code, DNR-CCA and DNR-CC status. Charges/Coding Visit Charges Inpatient E&M: 84490 Subs Hosp L3 10/28/24 0935 <Electronically signed by Khai Bose MD> Cosigner Signature (if applicable): CC: ~ Signed ADDENDUM by Dr. Khai Bose MD on 10/28/24 at 1511 Addendum ABG 7.4 on 2 L of oxygen. Patient was seen and examined in afternoon. He is having very shallow breathing, tachypneic respiratory 24, fatigue increasing his accessory muscles. Discussed with respiratory therapist. Needs NIPPV to help respiratory fatigue and tachypnea. Line Assembler on board advised to call him. Till then I have ordered AIRVO Microbiology Past 72 Hours 10/27/24 19:15 Urine Catheter - Kern Urine Culture - Preliminary Gram negative semaj 10/27/24 22:59 Mucosa - Nasopharyngeal Coronavirus COVID-19 PCR - Final 10/27/24 22:59 Mucosa - Nasopharyngeal Respiratory Panel (PCR) - Final 10/28/24 00:40 Urine Catheter - Kern Legionella Antigen - Final 10/28/24 00:40 Urine Catheter - Kern Streptococcus pneumoniae Antigen (M - Final Laboratory Results 10/27/24 19:15: WBC 8.1, RBC 3.42 L, Hgb 10.6 L, Hct 30.5 L, MCV 89.2, MCH 31.0,MCHC 34.8, RDW Std Deviation 42.3, RDW Coeff of Pollo 13.1, Plt Count 136 L, MPV 11.2, Immature Gran % (Auto) 0.500, Neut % (Auto) 70.9 H, Lymph % (Auto) 19.9, [place] % (Auto) 5.4, Eos % (Auto) 2.7, Baso % (Auto) 0.6, Absolute Neuts (auto) 5.7, Absolute Lymphs (auto) 1.61, Nucleated RBC % 0, Sodium 129 L, Potassium 4.5, Chloride 94 L, Carbon Dioxide 22.4, Anion Gap 13, BUN 50 H, Creatinine 1.60H, Estim Creat Clear Calc 59.54, Est GFR (MDRD) Non-Af 54 L, BUN/Creatinine Ratio 31.3 H, Glucose 106 H, Calcium 9.3, Procalcitonin 0.17 H, Urine Color Yellow, Urine Clarity Clear, Urine pH 6.5, Ur Specific Peggs 1.010, Urine Protein 30 H, Urine Glucose (UA) Normal, Urine Ketones Negative, Urine Occult Blood 50 H, Urine Nitrite Negative, Urine Bilirubin Negative, Urine UrobilinogenNormal, Ur Leukocyte Esterase 500 H, Urine RBC 0-5 SEEN, Urine WBC 10-25 SEEN, Ur Squamous Epith Cells 0-5 SEEN, Urine Bacteria 3+, Urine Mucus 0 SEEN 10/28/24 06:52: WBC 5.4, RBC 3.10 L, Hgb 9.4 L, Hct 28.0 L, MCV 90.3, MCH 30.3, MCHC 33.6, RDW Std Deviation 43.3, RDW Coeff of Pollo 13.1, Plt Count 134 L, MPV 11.9, Immature Gran % (Auto) 0.400, Neut % (Auto) 59.9, Lymph % (Auto) 26.3, [place] % (Auto) 8.2, Eos % (Auto) 4.3, Baso % (Auto) 0.9, Absolute Neuts (auto) 3.2, Absolute Lymphs (auto) 1.41, Nucleated RBC % 0, Sodium 133, Potassium 4.2, Chloride 101, Carbon Dioxide 21.7, Anion Gap 11, BUN 51 H, Creatinine 1.58 H, Estim Creat Clear Calc 60.54, Est GFR (MDRD) Non-Af 55 L, BUN/Creatinine Ratio 32.2 H, Glucose 95, Calcium 8.8, Total Bilirubin 0.48, AST 62 H, ALT 47, Alkaline Phosphatase 112, Total Protein 6.6, Albumin 3.2 L, Globulin 3.5, Albumin/Globulin Ratio 0.9 10/28/24 1511<Electronically signed by Khai Bose MD> Cosigner Signature (if applicable): cc: ~* Signed [facility] Work Phone: 1(312) 412-746709-07-2025 Consult note Author Jeffrey Guerrero [facility] Note Date/Time October 28, 2024 2:08pm [facility] Medical Records Department [address] [place] [address] Pharmacokinetic/Renal -Consult 10/28/24 1407 MR#: [id number] Acct: [id number] Name: TAZ JOHNSON Rep #:[id number] : 1935 89 From: Jeffrey Braswell [facility] PCP: Dr. Dipak Aguilar, DO Status:AD M IN Y Location: ICU CVICU20 3-1 Consult Antibiotic Management Pharmacy has been consulted to manage selected antibiotic: Vancomycin Type of Intervention Type of Consult: Follow-up Suspected Infection Suspected Infection: Sepsis Labs Labs: Sodium 139 mmol/L (133-145) 10/28/24 05:39 Potassium 4.1 mmol/L (3.3-5.1) 10/28/24 05:39 Chloride 108 mmol/L (98-108) 10/28/24 05:39 Carbon Dioxide 18.1 mmol/L (21.0-32.0) L 10/28/24 05:39 Anion Gap 13 (5-15) 10/28/24 05:39 BUN 29 mg/dL (4-19) H 10/28/24 05:39 Creatinine 1.63 mg/dL (0.70-1.20) H 10/28/24 05:39 Est GFR (MDRD) Non-Af 40 (>60) L 10/28/24 05:39 BUN/Creatinine Ratio 17.6 RATIO (10-20) 10/28/24 05:39 Glucose 205 mg/dL (70-99) H 10/28/24 05:39 Vancomycin Trough 12.2 ug/mL (5.0-15.0) 10/28/24 13:00 Microbiology Microbiology: Microbiology 10/27/24 09:24 Mucosa - Nasopharyngeal Coronavirus COVID-19 PCR - Final 10/27/24 01:25 Nasal Secretion MRSA (PCR) - Final 10/27/24 00:52 Mucosa - Nasopharyngeal Respiratory Panel (PCR) - Final 10/27/24 02:25 Urine, Random Legionella Antigen - Final 10/27/24 02:25 Urine, Random Streptococcus pneumoniae Antigen (M - Final Goal Trough Goal Trough: 15-20 mcg/mL Pharmacy Plan for Drug Dosing Pharmacy Plan for Drug Dosing: VANCOMYCIN LEVEL RECEIVED Current Vancomycin Dose: 750mg q12h (0130,1330) Number of Doses Received: x1 2000mg dose, x2 750mg doses Vancomycin Level: 12.2 (drawn 1300) Hours Since Last Dose: 11 hours since last 750mg dose (10/28/24 at 0211) Renal Function: SrCr 1.63 Renal Function Trend: SrCr increasing (was 1.27 on 10/27/24) Lab/Micro: Vancomycin Plan/Comments: trough resulted at 12.2 which is below the ordered goal trough of 15-20. pt likely not yet at steady state and SrCr is increasing. Recommend continuing current dose of 750mg q12h and checking another trough in 4 doses Pending Level: 10/30/24 at 0100 Pharmacy Service will continue to monitor and adjust dosing as required. Follow-Up Labs Follow-Up Labs: Trough: Vancomycin (10/30/24 at 0100) 10/28/24 1408 <Electronically signed by Jeffrey Amado RPh> Date _ Jeffrey Yared Cesar [facility] Cosigner Signature (if applicable): Date CC: ~ Signed [facility] Work Phone: 1(727) 630-451409-07-2025 Progress note Author Kenn Cavazos [facility] Note Date/Time October 28, 2024 1:40pm [facility] Medical Records Department [address] [place] [address] Progress Note - Surgery 10/28/24 1335 MR#: [id number] Acct: [id number] Name: TAZ JOHNSON Rep #:[id number] : 1935 89 From: Kenn Cavazos MD PCP: Dr. Dipak Aguilar, DO Status:AD M IN [facility] Subjective Subjective Patient seen and evaluated on rounds earlier this morning. Patient overall stable although he seems to have a more productive cough today compared to yesterday and his daughter states that he seems a bit more confused today. His cough is somewhat weak. White count down slightly this morning but still 18,000. LFTs remain stable Objective Data Objective Data Vital Signs: Vital Signs Temp Pulse Resp BP Pulse Ox O2 Del Method O2 Flow Rate 98.3 F 77 26 H 135/75 H 94 Nasal Cannula 2 10/28/24 12:00 10/28/24 13:00 10/28/24 13:00 10/28/24 13:00 10/28/24 13:00 10/28/24 13:00 10/28/24 13:00 Oxygen Flow Rate (L/min) 2 Oxygen Delivery Method Nasal Cannula Weight: 213 lb 6.519 oz Body Mass Index (BMI) 28.9 Intake & Output: Intake and Output for Last 24 Hours 10/26/24 10/27/24 10/28/24 23:59 23:59 23:59 Intake Total 50 / 50 4557.75 / 4557.75 1853.59 / 1853.59 Output Total 400 / 400 600 / 600 Balance 50 / 50 4157.75 / 4157.75 1253.59 / 1253.59 Lab / Micro Data 10/28/24 05:39 10/28/24 05:39 Labs: Laboratory Results - last 24 hr 10/27/24 17:59: POC Glucose 111 H 10/28/24 05:38: POC Glucose 188 H 10/28/24 05:39: WBC 18.7 H, RBC 4.09 L, Hgb 12.4 L, Hct 37.0 L, MCV 90.5, MCH 30.3, MCHC 33.5, RDW Std Deviation 52.0 H, RDW Coeff of Pollo 15.7 H, Plt Count 191, MPV 10.3, Immature Gran % (Auto) 1.400 H, Neut % (Auto) 90.7 H, Lymph % (Auto) 3.9 L, [place]umbull % (Auto) 3.2, Eos % (Auto) 0.5, Baso % (Auto) 0.3, Absolute Neuts (auto) 16.9 H, Absolute Lymphs (auto) 0.73 L, Nucleated RBC % 0, Differential Comment SCANNED, Sodium 139, Potassium 4.1, Chloride 108, Carbon Dioxide 18.1 L, Anion Gap 13, BUN 29 H, Creatinine 1.63 H, Estim Creat Clear Calc 34.38 L, Est GFR (MDRD) Non-Af 40 L, BUN/Creatinine Ratio 17.6, Glucose 205H, Calcium 8.5, Magnesium 1.6, Total Bilirubin 1.39 H, AST 20, ALT 8, Alkaline Phosphatase 64, Total Protein 5.8 L, Albumin 3.5, Globulin 2.3, Albumin/GlobulinRatio 1.5, TSH 1.440, Free T4 0.90 10/28/24 11:55: POC Glucose 127 H 10/28/24 13:00: Vancomycin Trough 12.2 Micro: Microbiology 10/27/24 09:24 Mucosa - Nasopharyngeal Coronavirus COVID-19 PCR - Final 10/27/24 01:25 Nasal Secretion MRSA (PCR) - Final 10/27/24 00:52 Mucosa - Nasopharyngeal Respiratory Panel (PCR) - Final 10/27/24 02:25 Urine, Random Legionella Antigen - Final 10/27/24 02:25 Urine, Random Streptococcus pneumoniae Antigen (M - Final Radiography Diagnostic Testing: Radiology Impression Abdomen X-Ray 10/28/24 09:30 IMPRESSION: Mild constipation. Probable left lung base infiltrate/pleural fluid. Reading Location: [facility] Physical Exam Narrative He is alert and oriented. He does not seem to be in acute distress Abdomen is soft yet distended. There is mild to moderate diffuse tenderness to palpation. The level of tenderness seems slightly less today. No rebound no guarding Assessment & Plan Assessment/Plan (1) Sepsis: (2) Lactic acidosis: (3) Acute cholecystitis: (4) Dyspnea on exertion: PLAN: Plan Patient is an 89-year-old male with multiple medical problems who presented withabdominal pain secondary to acute cholecystitis/cholelithiasis. I feel that this patient is at high risk for surgery mostly from a pulmonary standpoint. Namely, patient most likely has a developing pneumonia, recent rib fractures limiting full inspiration, and patient was hospitalized/intubated for severe COVID infection earlier this year. Rather than proceed with a laparoscopic cholecystectomy, I feel that is most prudent for patient to undergo percutaneouscholecystostomy tube to address the cholecystitis without the risks of a generalanesthesia especially in light of his current medical condition. Patient and family are in agreement with this plan. Hospitalist also in agreement. Order placed for percutaneous cholecystostomy tube to be performed tomorrow. Recommend continuing to hold Eliquis. Will discuss with radiology in a.m. Continue IV antibiotics and medical management Charges/Coding Visit Charges Inpatient E&M: 69993 Subs Hosp L3 10/28/24 1340 <Electronically signed by Kenn Cavazos MD> Cosigner Signature (if applicable): CC: ~ Signed [facility] Work Phone: 1(291) 840-747409-07-2025 Radiology Diagnostic study [facility]09-07-2025 Radiology Diagnostic study [facility]09-07-2025 Radiology Diagnostic study [facility] 10-27-2024 Consult note Author Kenn Cavazos [facility] Note Date/Time October 27, 2024 3:19pm [facility] Medical Records Department [address] [place] [address] [place] [address] Consultation - Surgical 10/27/24 1454 MR#: [id number] Acct: [id number] Name: TAZ JOHNSON Rep #:[id number] : 1935 89 From: Kenn Cavazos MD PCP: Dr. Dipak Aguilar, DO Status:AD M IN Location: ICU CVICU20 3-1 Assessment & Plan Assessment/Plan (1) Sepsis: (2) Lactic acidosis: (3) Essential hypertension: (4) Acute cholecystitis: (5) Dyspnea on exertion: (6) Elevated blood pressure reading with diagnosis of hypertension: (7) Anticoagulant long-term use: PLAN: Plan The patient is an 89-year-old male with multiple significant medical problems asdescribed above. Patient presents to the emergency department with abdominal pain and imaging findings consistent with acute cholecystitis/cholelithiasis. Clinically patient with signs and symptoms of sepsis. Patient also with atrial fibrillation and RVR. There is question of bilateral pneumonias. He is on blood thinners which are currently being held. Had a lengthy discussion with the patient as well as his this afternoon. I did explain that the definitive treatment of his acute cholecystitis ideally would be cholecystectomy, however I am concerned by all of his current medical comorbidities/issues. Most notably, the possibility of developing pneumonia's, fairly recent severe COVID infection resulting in prolonged intubation, and fall3 to 4 weeks ago resulting in numerous rib fractures. For these reasons, I suspect that a percutaneous cholecystostomy tube may be the most prudent way to deal with his current sepsis. I would like to see how he clinically progresses in the next 24 hours to make a final determination but I suspect cholecystostomytube will still be the best course of action rather than subject him to the risks of cholecystectomy. I explained that cholecystectomy could always be performed at a later date once stronger and more healthy. Patient and his seem to be in agreement with this plan. Will reevaluate and make a final determination tomorrow. HPI Consult Data Date of Consult: 10/27/24 HPI Narrative Reason for Consultation: Acute cholecystitis/cholelithiasis HPI Narrative: TAZ JOHNSON, is a 89 M who presented yesterday afternoon to [facility] emergency department with abdominal pain that began abruptly just afternoon on the day of admission. He states that he was in his usual state of health until after lunch when he began having central abdominal pain along with nausea and 1 episode of emesis. He initially thought the pain may berelated to bad clam chowder that he had had for lunch. He presented to the emergency department for further evaluation. Patient underwent a battery of laboratory testing that showed a white count of about 16,000. His BUN and creatinine were slightly elevated. His liver function tests were fairly unremarkable. His lactic acid was elevated at 3.2. Patient underwent CT scan of the chest abdomen pelvis which revealed multiple healing right sided rib fractures with no pneumothorax. There was also mediastinal lymphadenopathy and possible right middle lobe opacity. There was also cardiomegaly and vascular congestion and interstitial edema. There was also gallstones and concern for acute cholecystitis as there was some perihepatic fluid and pericholecystic edema. Patient also underwent an ultrasound that showed a distended gallbladderwith gallstones, sludge, wall thickening and Napoleon cholecystic edema. There wasalso nodular liver contour concerning for possible early cirrhosis. Is also important to note the patient has multiple medical problems including GERD, CVA, chronic kidney disease, diabetes, hypertension, hyperlipidemia, histoplasmosis, BPH. More recently patient has had a fall about 3 to 4 weeks ago resulting in multiple right-sided rib fractures. He is also on Eliquis for atrial fibrillation. While in the emergency department patient was noted to have RVR. In further discussions with the patient and his , it was noted that he had an episode back in March or April in which he had pretty severe COVID as well as influenza and he was hospitalized in the ICU in [place]. He was intubated I believe for about 5 days. He spent a month in the hospital and then went to rehab before returning to [place] in May. The patient was admitted to the ICU due to sepsis. Today, the patient seems to have a worsening leukocytosis now with a white count of 24,000. His bilirubin has begun to rise. Patient is now requiring oxygen. Patient states his abdominal pain is minimal however his examination proves otherwise. His Eliquisis currently being held for presumed intervention once held for 2 days/4 doses. 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 [facility] Medical History Type 2 diabetes mellitus Hyperlipidemia HTN (hypertension) Pulmonary hypertension Diverticulosis Insomnia Atrial fibrillation with RVR Histoplasmosis GERD (gastroesophageal reflux disease) History of skin cancer Solar keratosis Ulcer of right leg Burn scar Home Medications ?Medication ?Instructions ?Recorded ?Last Taken ?Type omeprazole 40 mg capsule,delayed 20 mg PO DAILY reflux 07/22/15 09/05/19 06:00 History release albuterol sulfate 90 mcg/actuation 1 puff PO Q6H short ness of breath 09/05/19 09/05/19 12:00 History breath activated powder inhaler multivitamin 1 tab PO QWEEK 09/25/19 [...] acid r eflux 09/30/23 09/30/23 History release furosemide 20 mg tablet 20 mg PO DAILY PRN swelling 10/26/24 Unknown History hydralazine 25 mg tablet mg PO 10/26/24 Unknown Histo ry ipratropium 0.5 mg-albuterol 3 mg 3 ml inhalation TID 10/26/24 Unknown History (2.5 mg base)/3 mL nebulization soln losartan 100 mg tablet 100 mg PO DAILY 10/26/24 Unk nown History magnesium 200 mg tablet 200 mg PO DAILY 10/26/24 Unk nown History metformin 500 mg tablet 500 mg PO BID 10/26/24 Unkno wn History rosuvastatin 20 mg tablet 20 mg PO DAILY 10/26/24 Unkn own History Allergy/AdvReac Type Severity Reaction Status Date / Time No Known Allergies Allergy Verified 10/26/24 16:44 Family History Mother Breast cancer Father Colon cancer Melanoma Brother COPD (chronic obstructive pulmonary disease) Grandfather Multiple myeloma Surgical History History of left hip replacement History of arthroscopic knee surgery History of skin graft History of transurethral resection of prostate History of right hip replacement History of rotator cuff surgery History of tonsillectomy and adenoidectomy Social History household members: spouse Smoking Status: Former smoker how long ago did patient quit smokin years ago alcohol intake: current alcohol intake frequency: a few times a week Alcohol type: wine substance use type: does not use caffeine: No ROS Eyes Eyes: Reports systems reviewed and no addt'l complaints, except as documented ENT HEENT: Reports systems reviewed and no addt'l complaints, except as documented Cardiovascular Cardiovascular: Reports systems reviewed and no addt'l complaints, except as documented Respiratory/Chest Respiratory/Chest: Reports systems reviewed and no addt'l complaints, except as documented Gastrointestinal Gastrointestinal: Reports systems reviewed and no addt'l complaints, except as documented Genitourinary Genitourinary: Reports systems reviewed and no addt'l complaints, except as documented Musculoskeletal Musculoskeletal: Reports systems reviewed and no addt'l complaints, except as documented Integumentary Integumentary: Reports systems reviewed and no addt'l complaints, except as documented Physical Exam Const alert, oriented x3 and no apparent distress General Appearance: cooperative HEENT normocephalic Eyes PERRL and EOMs intact bilaterally Resp Resp Narrative: No labored breathing but is on oxygen by nasal cannula GI GI Narrative: Abdomen is distended and diffusely tender. Patient with moderate tenderness to palpation with some guarding diffusely Lab / Micro Data 10/27/24 06:23 10/27/24 06:23 Labs: Laboratory Results - last 24 hr 10/26/24 18:04: WBC 15.8 H, RBC 5.16, Hgb 15.2, Hct 45.8, MCV 88.8, MCH 29.5, MCHC 33.2, RDW Std Deviation 49.2 H, RDW Coeff of Pollo 15.2 H, Plt Count 285, MPV10.5, Immature Gran % (Auto) 1.400 H, Neut % (Auto) 81.0 H, Lymph % (Auto) 10.5 L, [place] % (Auto) 6.0, Eos % (Auto) 0.4, Baso % (Auto) 0.7, Absolute Neuts (auto)12.8 H, Absolute Lymphs (auto) 1.66, Nucleated RBC % 0, Sodium 140, Potassium 4.1, Chloride 102, Carbon Dioxide 23.2, Anion Gap 15, BUN 20 H, Creatinine 1.27 H, Estim Creat Clear Calc 44.13 L, Est GFR (MDRD) Non-Af 54 L, BUN/Creatinine Ratio 15.6, Glucose 144 H, Calcium 10.7, Phosphorus 3.2, Magnesium 1.4 L, Total Bilirubin 1.11, AST 34, ALT 18, Alkaline Phosphatase 120, Total Protein 8.1, Albumin 4.5, Globulin 3.6, Albumin/Globulin Ratio 1.3, Lipase 15 10/26/24 21:44: Lactic Acid 3.2 H* 10/27/24 01:09: POC Glucose 95 10/27/24 02:20: Lactic Acid 2.4 H* 10/27/24 06:23: WBC 24.0 H, RBC 4.64, Hgb 13.7, Hct 41.7, MCV 89.9, MCH 29.5, MCHC 32.9, RDW Std Deviation 49.7 H, RDW Coeff of Pollo 15.4 H, Plt Count 218, MPV9.8, Immature Gran % (Auto) 0.900, Neut % (Auto) 91.2 H, Lymph % (Auto) 3.1 L, [place] % (Auto) 4.2, Eos % (Auto) 0.0, Baso % (Auto) 0.6, Absolute Neuts (auto) 21.9 H, Absolute Lymphs (auto) 0.75 L, Nucleated RBC % 0, Differential Comment SCANNED, Sodium 140, Potassium 4.2, Chloride 110 H, Carbon Dioxide 18.4 L, AnionGap 12, BUN 22 H, Creatinine 1.32 H, Estim Creat Clear Calc 42.46 L, Est GFR (MDRD) Non-Af 52 L, BUN/Creatinine Ratio 16.8, Glucose 96, Calcium 8.7, Total Bilirubin 1.36 H, AST 27, ALT 14, Alkaline Phosphatase 77, Total Protein 6.0, Albumin 3.3 L, Globulin 2.7, Albumin/Globulin Ratio 1.2 10/27/24 06:25: POC Glucose 94 10/27/24 11:43: POC Glucose 111 H Micro: Microbiology 10/27/24 09:24 Mucosa - Nasopharyngeal Coronavirus COVID-19 PCR - Final 10/27/24 01:25 Nasal Secretion MRSA (PCR) - Final 10/27/24 00:52 Mucosa - Nasopharyngeal Respiratory Panel (PCR) - Final 10/27/24 02:25 Urine, Random Legionella Antigen - Final 10/27/24 02:25 Urine, Random Streptococcus pneumoniae Antigen (M - Final Imaging Radiology Impression Chest CT 10/26/24 18:37 IMPRESSION: 1. Healing right anterolateral 6th to 9th rib fractures. No pneumothorax. 2. Right middle lobe nodular opacity, possibly infectious in etiology versus neoplasm. 3. Mediastinal lymphadenopathy. 4. Cardiomegaly with mild vascular congestion and interstitial edema. 5. Dependent lung opacities bilaterally, likely atelectasis with infection not excluded. 6. Cholelithiasis with concern for acute cholecystitis. Clinical correlation is recommended. 7. Coronary artery calcification (CAC) is present. 8. Left thyroid nodule up to 1.7 cm. Thyroid ultrasound follow up is recommended. 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 Reading Location: [facility] Gallbladder Ultrasound 10/26/24 18:37 IMPRESSION: 1. Distended gallbladder with gallstones, sludge, wall thickening and pericholecystic edema. Correlate clinically for signs of acute cholecystitis. 2. Mildly nodular liver contour with coarsened echotexture. This could represent early signs of hepatic cirrhosis. 3. Minimal ascites. Reading Location: [facility] Echocardiogram 10/27/24 00:32 Interpretation Summary The estimated ejection fraction is 70 %. The left atrium is mildly enlarged. The right atrium is mildly enlarged. Trivial mitral valve insufficiency. Ordering Physician: Fernanda Triplett Referring Physician: Dipak Aguilar Performed By: Citlalli Arzate, ANUPAMA, RVT 10/27/24 1519 <Electronically signed by Kenn Cavazos MD> Cosigner Signature (if applicable): CC: Dr. Dipak Aguilar, DO~ Signed [facility] Work Phone: [phone]) [phone] Progress note Author [facility] Note Date/Time October 27, 2024 2:49pm [facility] Medical Records Department [address] [place] [address] Progress Note - Line Assembler 10/27/24 1447 MR#: [id number] Acct: [id number] Name: TAZ JOHNSON Rep #:[id number] : 1935 89 From: Elaine Nelson PCP: Dr. Dipak Aguilar DO Status:AD M IN Location: ICU CVICU20 3-1 Objective Data Objective Data Vital Signs: Vital Signs Last response 3 Temperature 36.4 C L 10/27/24 08:00 Temperature Source Temporal 10/27/24 08:00 Pulse Rate 113 H 10/27/24 13:00 Respiratory Rate 25 H 10/27/24 13:00 Respiratory Effort Normal, Non-Labored 10/27/24 04:00 Respiratory Depth Normal 10/27/24 04:00 Respiratory Pattern Normal 10/27/24 11:41 Blood Pressure 103/75 10/27/24 13:00 Blood Pressure Mean 84 10/27/24 13:00 Blood Pressure Source Monitor 10/27/24 13:00 Blood Pressure Position Semi-Fowlers 10/27/24 03:00 Blood Pressure Location Right Arm 10/27/24 03:00 Pulse Ox 94 10/27/24 13:42 Oxygen Delivery Method Nasal Cannula 10/27/24 13:00 Oxygen Flow Rate (L/min) 2 10/27/24 13:43 I&O: I&O Last 24 Hours 3 10/26/24 10/27/24 10/27/24 23:59 11:59 23:59 Intake Total 50 / 50 3822.75 / 4087.75 265 / 4087.75 Output Total 300 / 300 Balance 50 / 50 3522.75 / 3787.75 265 / 3787.75 I&O: Total Stay 3 10/26/24 16:39 thru 10/27/24 14:00 Intake Total 4137.75 Output Total 300 Balance 3837.75 Current Meds Ordered / Administered: Current meds ordered / Administered 3 Generic Name Dose Route Start Last Admin Trade Name Freq PRN Reason Stop Dose Admin Acetaminophen 650 mg 10/27/24 00:32 Acetaminophen 650 Mg Suppository RC Q4H PRN PRN Fever, pain 1-10 Acetaminophen 650 mg 10/27/24 00:32 Acetaminophen 325 Mg Tablet PO Q4H PRN PRN Fever, pain 1-10/10 Albuterol Sulfate 2.5 mg 10/27/24 00:32 Albuterol 2.5 Mg/3 Ml Vial.Neb. INHALATION Q2H PRN PRN Dyspnea, wheezing Atorvastatin Calcium 40 mg 10/27/24 22:00 Atorvastatin Calcium 40 Mg Tablet PO QHS SOLEDAD Budesonide 0.5 mg 10/27/24 08:00 10/27/24 11:40 Budesonide Respules 0.5 Mg/2 Ml Ampul.Neb. INHALATION 0.5 mg BID.RT SOLEDAD Administration Calamine/Phenol 1 applic 10/27/24 10:00 10/27/24 12:41 Menthol/Lanolin/Calamine/Znox 113 Gm Tube TOPICAL Not Given 4X/DAY SOLEDAD Protocol Glucagon 1 mg 10/27/24 00:32 Glucagon 1 Mg/Ml Syringe IM X1 PRN HYPOGLYCEMIA Protocol Guaifenesin 10 ml 10/27/24 00:32 Guaifenesin 10 Ml Udc (200mg/10ml) PO Q4H PRN PRN COUGH Hydralazine HCl 10 mg 10/27/24 00:32 Hydralazine 20 Mg/Ml Vial IV Q4H PRN PRN SBP > 160 Protocol Vancomycin IV-PHARMACY TO DOSE 500 mls @ 250 mls/hr 10/27/24 00:32 1 each/ Sodium Chloride IV X1 PRN Rx to Dose Protocol Pantoprazole Sodium 40 mg/ 100 mls @ 330 mls/hr 10/27/24 00:32 10/27/24 10:17 Sodium Chloride IV Infused Q12 SOLEDAD Infusion Piperacillin Sod/Tazobactam 50 mls @ 12.5 mls/hr 10/27/24 06:00 10/27/24 13:51 Sod 3.375 gm/ Sodium Chloride IV 12.5 mls/hr Q8 SOLEDAD Administration Azithromycin 500 mg/ Sodium 255 mls @ 255 mls/hr 10/27/24 10:00 10/27/24 11:17 Chloride IV 11/01/24 10:01 Infused Q24 SOLEDAD Infusion Dextrose 250 mls @ 0 mls/hr 10/27/24 00:32 Dextrose 10%-Water IV .Q0M PRN HYPOGLYCEMIA Protocol As Directed Sodium Chloride 250 mls @ 15 mls/hr 10/27/24 01:21 IV .[id number] PRN Saline Flush Sodium Chloride 250 mls @ 15 mls/hr 10/27/24 01:21 IV .[id number] PRN Additional IVPB Infusion Vancomycin HCl 750 mg/ Sodium 265 mls @ 250 mls/hr 10/27/24 13:30 10/27/24 14:00 Chloride IV Infused Q12H SOLEDAD Infusion Albumin Human 25 gm in 100 mls @ 60 mls/hr 10/27/24 14:45 IV 10/27/24 18:04 .Q1H40M SOLEDAD Diltiazem HCl 125 mg/ Dextrose 125 mls @ 5 mls/hr 10/27/24 14:45 IV .Q25H SOLEDAD Protocol 5 MG/HR Dextrose/Lactated Ringer's 1,000 mls @ 75 mls/hr 10/27/24 14:45 IV .[id number] SOLEDAD Insulin Human Lispro 0 unit 10/27/24 00:32 10/27/24 11:49 Insulin Lispro 100 Unit/Ml Insuln.Pen SC Not Given Q6 [facility] Protocol Ipratropium [place] 0.5 mg 10/27/24 00:32 10/27/24 11:40 Ipratropium 0.5 Mg/2.5 Ml Solution INHALATION 0.5 mg Q4HWA.RT SOLEDAD Administration Melatonin 3 mg 10/27/24 00:32 Melatonin 3 Mg Tablet PO QHS PRN PRN INSOMNIA Metoprolol Tartrate 50 mg 10/27/24 10:00 10/27/24 08:31 Metoprolol Tartrate 50 Mg Tablet PO 50 mg BID SOLEDAD Administration Protocol Metoprolol Tartrate 5 mg 10/27/24 07:41 Metoprolol Tartrate 5 Mg/5 Ml Vial IV Q6H PRN PRN TO CONTROL HEART RATE Protocol Morphine Sulfate 2 mg 10/27/24 00:32 10/27/24 01:01 Morphine 2 Mg/Ml Syringe IV 2 mg Q3H PRN PRN Administration Pain Score 6-10 Ondansetron HCl 4 mg 10/27/24 00:32 10/27/24 11:27 Ondansetron 4 Mg/2 Ml Vial IV 4 mg Q8H PRN PRN Administration NAUSEA/VOMITING Oxycodone HCl 2.5 mg 10/27/24 00:32 Oxycodone 5 Mg Tablet PO Q4H PRN PRN Pain Score 4-10 Senna/Docusate Sodium 2 tablet 10/27/24 00:32 Senna/Docusate Sodium 1 Tablet PO BID PRN PRN Constipation Sodium Chloride 10 - 40 ml 10/27/24 01:21 0.9% Saline Lock 10 Ml Syringe IV UD PRN SALINE FLUSH Vancomycin Protocol 1 lab 10/28/24 12:00 Vancomycin Trough/Random Due MC 10/28/24 14:00 DAILY [facility] Lab / Micro Data 10/27/24 06:23 10/27/24 06:23 Labs: Laboratory Results - last 24 hr 10/26/24 18:04: WBC 15.8 H, RBC 5.16, Hgb 15.2, Hct 45.8, MCV 88.8, MCH 29.5, MCHC 33.2, RDW Std Deviation 49.2 H, RDW Coeff of Pollo 15.2 H, Plt Count 285, MPV10.5, Immature Gran % (Auto) 1.400 H, Neut % (Auto) 81.0 H, Lymph % (Auto) 10.5 L, [place] % (Auto) 6.0, Eos % (Auto) 0.4, Baso % (Auto) 0.7, Absolute Neuts (auto)12.8 H, Absolute Lymphs (auto) 1.66, Nucleated RBC % 0, Sodium 140, Potassium 4.1, Chloride 102, Carbon Dioxide 23.2, Anion Gap 15, BUN 20 H, Creatinine 1.27 H, Estim Creat Clear Calc 44.13 L, Est GFR (MDRD) Non-Af 54 L, BUN/Creatinine Ratio 15.6, Glucose 144 H, Calcium 10.7, Phosphorus 3.2, Magnesium 1.4 L, Total Bilirubin 1.11, AST 34, ALT 18, Alkaline Phosphatase 120, Total Protein 8.1, Albumin 4.5, Globulin 3.6, Albumin/Globulin Ratio 1.3, Lipase 15 10/26/24 21:44: Lactic Acid 3.2 H* 10/27/24 01:09: POC Glucose 95 10/27/24 02:20: Lactic Acid 2.4 H* 10/27/24 06:23: WBC 24.0 H, RBC 4.64, Hgb 13.7, Hct 41.7, MCV 89.9, MCH 29.5, MCHC 32.9, RDW Std Deviation 49.7 H, RDW Coeff of Pollo 15.4 H, Plt Count 218, MPV9.8, Immature Gran % (Auto) 0.900, Neut % (Auto) 91.2 H, Lymph % (Auto) 3.1 L, [place] % (Auto) 4.2, Eos % (Auto) 0.0, Baso % (Auto) 0.6, Absolute Neuts (auto) 21.9 H, Absolute Lymphs (auto) 0.75 L, Nucleated RBC % 0, Differential Comment SCANNED, Sodium 140, Potassium 4.2, Chloride 110 H, Carbon Dioxide 18.4 L, AnionGap 12, BUN 22 H, Creatinine 1.32 H, Estim Creat Clear Calc 42.46 L, Est GFR (MDRD) Non-Af 52 L, BUN/Creatinine Ratio 16.8, Glucose 96, Calcium 8.7, Total Bilirubin 1.36 H, AST 27, ALT 14, Alkaline Phosphatase 77, Total Protein 6.0, Albumin 3.3 L, Globulin 2.7, Albumin/Globulin Ratio 1.2 10/27/24 06:25: POC Glucose 94 10/27/24 11:43: POC Glucose 111 H Micro: Microbiology 10/27/24 09:24 Mucosa - Nasopharyngeal Coronavirus COVID-19 PCR - Final 10/27/24 01:25 Nasal Secretion MRSA (PCR) - Final 10/27/24 00:52 Mucosa - Nasopharyngeal Respiratory Panel (PCR) - Final 10/27/24 02:25 Urine, Random Legionella Antigen - Final 10/27/24 02:25 Urine, Random Streptococcus pneumoniae Antigen (M - Final Imaging Radiology Impression Chest CT 10/26/24 18:37 IMPRESSION: 1. Healing right anterolateral 6th to 9th rib fractures. No pneumothorax. 2. Right middle lobe nodular opacity, possibly infectious in etiology versus neoplasm. 3. Mediastinal lymphadenopathy. 4. Cardiomegaly with mild vascular congestion and interstitial edema. 5. Dependent lung opacities bilaterally, likely atelectasis with infection not excluded. 6. Cholelithiasis with concern for acute cholecystitis. Clinical correlation is recommended. 7. Coronary artery calcification (CAC) is present. 8. Left thyroid nodule up to 1.7 cm. Thyroid ultrasound follow up is recommended. 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 Reading Location: [facility] Gallbladder Ultrasound 10/26/24 18:37 IMPRESSION: 1. Distended gallbladder with gallstones, sludge, wall thickening and pericholecystic edema. Correlate clinically for signs of acute cholecystitis. 2. Mildly nodular liver contour with coarsened echotexture. This could represent early signs of hepatic cirrhosis. 3. Minimal ascites. Reading Location: [facility] Echocardiogram 10/27/24 00:32 Interpretation Summary The estimated ejection fraction is 70 %. The left atrium is mildly enlarged. The right atrium is mildly enlarged. Trivial mitral valve insufficiency. Ordering Physician: Fernanda Triplett Referring Physician: Dipak gAuilar Performed By: Citlalli Arzate RDCS, RVT Assessment and Plan . Assessment and plan: Patient seen and examined Chart and data reviewed He appears ill HR 110-130 BPM, irregular - BP adequate - UOP poor CX pending Imaging noted Surgery evaluation ongoing Continue volume expansion HR control - try cardizem IV infusion Could likely narrow ABX - continue Zosyn A/C held d/t possible invasive intervention required for cholecystitis The entirety of this encounter was done via Telemedicine 10/27/24 1440 <Electronically signed by Elaine Duenas MD> Cosigner Signature (if applicable): CC: ~ Signed [facility] Work Phone: [phone]) 321-564709-06-2025 Progress note Author [facility] Note Date/Time October 27, 2024 12:08pm [facility] Medical Records Department [address] [place] [address] Progress Note - Hospitalist 10/27/24 0733 MR#: [id number] Acct: [id number] Name: TAZ JOHNSON Rep #:[id number] : 1935 89 From: Khai Nelson PCP: Dr. Dipak Aguilar, DO Status:AD M IN Location: ICU CVICU 3-1 Reason for Visit Chief Complaint: Abdominal pain, N/V. Objective Data Objective Data Vital Signs: Vital Signs Temp Pulse Resp BP Pulse Ox O2 Del Method O2 Flow Rate 99.3 F H 125 H 23 H 111/73 96 Nasal Cannula 5 10/27/24 00:39 10/27/24 06:00 10/27/24 06:00 10/27/24 06:00 10/27/24 06:00 10/27/24 06:00 10/27/24 06:00 Oxygen Flow Rate (L/min) 5 Oxygen Delivery Method Nasal Cannula Weight: 196 lb 13.965 oz Body Mass Index (BMI) 26.6 Intake & Output: Intake and Output for Last 24 Hours 10/25/24 10/26/24 10/27/24 23:59 23:59 23:59 Intake Total 50 / 50 2640 / 2640 Output Total 100 / 100 Balance 50 / 50 2540 / 2540 Lab / Micro Data 10/27/24 06:23 10/27/24 06:23 Labs: Laboratory Results - last 24 hr 10/26/24 18:04: WBC 15.8 H, RBC 5.16, Hgb 15.2, Hct 45.8, MCV 88.8, MCH 29.5, MCHC 33.2, RDW Std Deviation 49.2 H, RDW Coeff of Pollo 15.2 H, Plt Count 285, MPV10.5, Immature Gran % (Auto) 1.400 H, Neut % (Auto) 81.0 H, Lymph % (Auto) 10.5 L, [place] % (Auto) 6.0, Eos % (Auto) 0.4, Baso % (Auto) 0.7, Absolute Neuts (auto)12.8 H, Absolute Lymphs (auto) 1.66, Nucleated RBC % 0, Sodium 140, Potassium 4.1, Chloride 102, Carbon Dioxide 23.2, Anion Gap 15, BUN 20 H, Creatinine 1.27 H, Estim Creat Clear Calc 44.13 L, Est GFR (MDRD) Non-Af 54 L, BUN/Creatinine Ratio 15.6, Glucose 144 H, Calcium 10.7, Phosphorus 3.2, Magnesium 1.4 L, Total Bilirubin 1.11, AST 34, ALT 18, Alkaline Phosphatase 120, Total Protein 8.1, Albumin 4.5, Globulin 3.6, Albumin/Globulin Ratio 1.3, Lipase 15 10/26/24 21:44: Lactic Acid 3.2 H* 10/27/24 01:09: POC Glucose 95 10/27/24 02:20: Lactic Acid 2.4 H* 10/27/24 06:23: WBC 24.0 H, RBC 4.64, Hgb 13.7, Hct 41.7, MCV 89.9, MCH 29.5, MCHC 32.9, RDW Std Deviation 49.7 H, RDW Coeff of Pollo 15.4 H, Plt Count 218, MPV9.8, Immature Gran % (Auto) 0.900, Neut % (Auto) 91.2 H, Lymph % (Auto) 3.1 L, [place] % (Auto) 4.2, Eos % (Auto) 0.0, Baso % (Auto) 0.6, Absolute Neuts (auto) 21.9 H, Absolute Lymphs (auto) 0.75 L, Nucleated RBC % 0, Differential Comment SCANNED, Sodium 140, Potassium 4.2, Chloride 110 H, Carbon Dioxide 18.4 L, AnionGap 12, BUN 22 H, Creatinine 1.32 H, Estim Creat Clear Calc 42.46 L, Est GFR (MDRD) Non-Af 52 L, BUN/Creatinine Ratio 16.8, Glucose 96, Calcium 8.7, Total Bilirubin 1.36 H, AST 27, ALT 14, Alkaline Phosphatase 77, Total Protein 6.0, Albumin 3.3 L, Globulin 2.7, Albumin/Globulin Ratio 1.2 10/27/24 06:25: POC Glucose 94 Micro: Microbiology 10/27/24 01:25 Nasal Secretion MRSA (PCR) - Final 10/27/24 00:52 Mucosa - Nasopharyngeal Respiratory Panel (PCR) - Final 10/27/24 02:25 Urine, Random Legionella Antigen - Final 10/27/24 02:25 Urine, Random Streptococcus pneumoniae Antigen (M - Final Radiography Diagnostic Testing: Radiology Impression Chest CT 10/26/24 18:37 IMPRESSION: 1. Healing right anterolateral 6th to 9th rib fractures. No pneumothorax. 2. Right middle lobe nodular opacity, possibly infectious in etiology versus neoplasm. 3. Mediastinal lymphadenopathy. 4. Cardiomegaly with mild vascular congestion and interstitial edema. 5. Dependent lung opacities bilaterally, likely atelectasis with infection not excluded. 6. Cholelithiasis with concern for acute cholecystitis. Clinical correlation is recommended. 7. Coronary artery calcification (CAC) is present. 8. Left thyroid nodule up to 1.7 cm. Thyroid ultrasound follow up is recommended. 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 Reading Location: [facility] Gallbladder Ultrasound 10/26/24 18:37 IMPRESSION: 1. Distended gallbladder with gallstones, sludge, wall thickening and pericholecystic edema. Correlate clinically for signs of acute cholecystitis. 2. Mildly nodular liver contour with coarsened echotexture. This could represent early signs of hepatic cirrhosis. 3. Minimal ascites. Reading Location: [facility] Physical Exam Narrative Seen and examined Patient admitted with right upper quadrant pain and chills and nausea. Denies any vomiting. Has chronic dyspnea on exertion with climbing stairs. As per hiswife at home his blood pressure goes high and low and heart rate also not controlled. She kept a log of BP and pulse ox but there was no heart rate. On public defender patient afebrile RVR, heart rate variable from 125 to 140s Patient denies prior history of gallbladder or liver disease. Had a fall about a month ago and had a right-sided rib fracture and chest wall bruised as per thewife. Patient also has some dysphagia at throat/upper chest and his daughter sophia speech pathologist who helps him and had esophageal dilatation. He has multiple other issues which takes precedence that dysphagia Physical exam General: Alert, Oriented x3, Cooperative HEENT: Atraumatic, PERRLA, EOMI, Normocephalic. Oral: No Gingival or Mucosal Lesions/ Ulcerations Neck: Supple, No JVD, Negative Carotid Bruits Chest wall/Lungs: Air entry diminished in bilateral lung bases. Right lung base crepitation Cardiovascular: Regular rate and rhythm, Normal S1,S2, No M/G/R Abdomen: Bowel Sounds Present, Soft, Non Tender, Non-Distended : No dysuria. No renal angle tenderness. No suprapubic tenderness. Extremities: No edema, Capillary Refill Less than 3 Seconds Skin: No rashes, No breakdown Musculoskeletal: No Tenderness to Palpation of Joints or Extremities. Chronic bony scar on bilateral lower legs. Neurological: Cranial nerves II-XII grossly intact, DTR 2+/4. No acute focal neurological deficit. Psych/Mental Status: Flat affect Assessment & Plan Assessment/Plan (1) Sepsis: (2) Acute cholecystitis: PLAN: Plan The patient is an 89 y/o M #1. Sepsis, probably acute cholecystitis with cholelithiasis/bilateral pneumonia: Patient had tachycardia, tachypnea, hypoxic lactic acidosis and leukocytosis. Blood pressure still maintained. Patient on sepsis protocol, broad-spectrum IV antibiotic as mentioned in H&P. Sepsis note reviewed in H&P. Surgeon is being consulted. Line Assembler consulted. Urinary antigens, respiratory panel and MRSA nasal screen are negative. Liver chemistry shows normal transaminases alkaline phosphatase but total bilirubin 1.36 mildly elevated #2. 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 Patient also had fall about a month ago with poor respiratory excursion. Chest CT initially reviewed and shows RML nodular opacity measuring 1.9 x 2.5 cm, interlobular septal and peribronchial interstitial thickening bilaterally and dependent opacity in bilateral lung bases. MRSA nasal screen, respiratory panel, urinary antigen and COVID PCR are negative. Blood culture pending. #3. Recent mechanical fall on anticoagulant therapy: Patient per report from fell to the right side and not surprisingly on CT imaging demonstrated a nonacute right anterior lateral 6th through 9th rib fractures as well as old lateral left 10th rib fracture, holding anticoagulant therapy as noted, PT/OT/case management consulted for discharge planning. #4. PAF with RVR: Likely secondary to his acute illness #1, improved rate in the ED with ED IV labetalol and lopressor, will continue metoprolol as able, holding Eliquis given surgical intervention needs. Most recently noted echocardiogram 10/01/2023 with EF 70%, mildly enlarged LA, trivial MVI with repeat echo requested. #5. Chronic Kidney Disease Stage IIIa: Admission BUN/Cr 20/1.27, GFR 54, baseline renal function primarily more recently noted 1.2-1.6, most recently 10/01/2023 which is unfortunately remote noted to be 1.47, repeat CMP in a.m. to further elucidate what patient's level is currently. #6. Incidentally noted left thyroid nodule: CT of the chest with incidentally noted left thyroid nodule up to 1.7 cm, TSH and free T4 #7. Incidentally noted renal artery aneurysm: CT of the chest with incidentallynoted right renal artery aneurysm measuring up to 1.1 cm, outpatient follow-up. #8. Diabetes mellitus type II: Hold oral home regimen, n.p.o. status given presentation as noted, maintain on every 6 hours accu checks w/ ISS. NPO. #9. Hypertension: Given current presentation with PAF with RVR and usage of IV beta-mattie therapies in the ED BP now low, will temporarily hold diuretic therapy especially given presentation as noted #1 and focus on continuing beta-mattie therapy only as able, will add back other regimen as able. #10. Hyperlipidemia: Patient is n.p.o. therefore oral medications are held #11. Hx CVA w/ associated memory impairment: Hold oral metoprolol, IV metoprolol as needed #12. Former tobacco use: Encouraged continued tobacco cessation. #13. BPH: From records noted status post TURP status, not on any chronic regimen, monitor for retention. #14. GERD: Will maintain on IV PPI. #15. DVT prophylaxis: SCDs, holding Eliquis given need for intervention. #16. CODE status: Patient FRANKLIN is his who is present and living will is currently in place. Discussed CODE status at length including difference betweenFULL code, DNR-CCA and DNR-CC status. Charges/Coding Visit Charges Inpatient E&M: 26091 Subs Hosp L3 10/27/24 1203 <Electronically signed by Khai Bose MD> Cosigner Signature (if applicable): CC: ~ Signed [facility] Work Phone: [phone] Consult note Author Jacky Blackwood [facility] Note Date/Time October 27, 2024 8:02[facility] Medical Records Department [address] [place] [address] Consultation - Line Assembler 10/27/24 0649 MR#: [id number] Acct: [id number] Name: TAZ JOHNSON Rep #:[id number] : 1935 89 From: Jacky Blackwood MD PCP: Dr. Dipak Aguilar, DO Status:AD M IN Location: ICU CVICU20 3-1 HPI Consult Data Date of Consult: 10/27/24 HPI Narrative HPI Narrative: HPI: 89yo M w/ h/o CVA, COPD, h/o severe COVID-19 03/2024, CKD, paroxysmal Afib on eliquis, h/o histoplasmosis, BPH s/p TURP who was admitted for sepsis and cholecystitis. at bedside assisted with history. Yesterday he developed acute onset R sided abd pain, nausea without vomiting, and chills. He also had afall about 1 week prior with some bruising to his face. On arrival here he was noted to be in Afib w/ RVR, lactic acidosis, and imaging showed acute cholecystitis. He was started on empiric IV abx and admitted to ICU. Received IVmetop and labetalol for RVR with only marginal improvement. Surgeon consulted and will see this AM. Denies vomiting, diarrhea, syncope, presyncope, dysphagia, odynophagia, chest pain, reflux symptoms, dysuria, hematuria, melena, hematochezia, seizures, paralysis, or other neurological changes. ROS: 12-point ROS negative except as per HPI [facility] Medical History Type 2 diabetes mellitus Hyperlipidemia HTN (hypertension) Pulmonary hypertension Diverticulosis Insomnia Atrial fibrillation with RVR Histoplasmosis GERD (gastroesophageal reflux disease) History of skin cancer Solar keratosis Ulcer of right leg Burn scar Home Medications ?Medication ?Instructions ?Recorded ?Last Taken ?Type omeprazole 40 mg capsule,delayed 20 mg PO DAILY reflux 07/22/15 09/05/19 06:00 History release albuterol sulfate 90 mcg/actuation 1 puff PO Q6H short ness of breath 09/05/19 09/05/19 12:00 History breath activated powder inhaler multivitamin 1 tab PO QWEEK 09/25/19 [...] acid r eflux 09/30/23 09/30/23 History release furosemide 20 mg tablet 20 mg PO DAILY PRN swelling 10/26/24 Unknown History hydralazine 25 mg tablet mg PO 10/26/24 Unknown Histo ry ipratropium 0.5 mg-albuterol 3 mg 3 ml inhalation TID 10/26/24 Unknown History (2.5 mg base)/3 mL nebulization soln losartan 100 mg tablet 100 mg PO DAILY 10/26/24 Unk nown History magnesium 200 mg tablet 200 mg PO DAILY 10/26/24 Unk nown History metformin 500 mg tablet 500 mg PO BID 10/26/24 Unkno wn History rosuvastatin 20 mg tablet 20 mg PO DAILY 10/26/24 Unkn own History Allergy/AdvReac Type Severity Reaction Status Date / Time No Known Allergies Allergy Verified 10/26/24 16:44 Family History Mother Breast cancer Father Colon cancer Melanoma Brother COPD (chronic obstructive pulmonary disease) Grandfather Multiple myeloma Surgical History History of left hip replacement History of arthroscopic knee surgery History of skin graft History of transurethral resection of prostate History of right hip replacement History of rotator cuff surgery History of tonsillectomy and adenoidectomy Social History household members: spouse Smoking Status: Former smoker how long ago did patient quit smokin years ago alcohol intake: current alcohol intake frequency: a few times a week Alcohol type: wine substance use type: does not use caffeine: No Objective Data Objective Data Vital Signs: Vital Signs Last response 3 Temperature 37.4 C H 10/27/24 00:39 Temperature Source Temporal 10/27/24 00:39 Pulse Rate 125 H 10/27/24 06:00 Respiratory Rate 23 H 10/27/24 06:00 Respiratory Effort Normal, Non-Labored 10/27/24 04:00 Respiratory Depth Normal 10/27/24 04:00 Respiratory Pattern Normal 10/27/24 04:00 Blood Pressure 111/73 10/27/24 06:00 Blood Pressure Mean 85 10/27/24 06:00 Blood Pressure Source Monitor 10/27/24 06:00 Blood Pressure Position [employer] 10/27/24 03:00 Blood Pressure Location Right Arm 10/27/24 03:00 Pulse Ox 96 10/27/24 06:00 Oxygen Delivery Method Nasal Cannula 10/27/24 06:00 Oxygen Flow Rate (L/min) 5 10/27/24 06:00 I&O: I&O Last 24 Hours 3 10/26/24 10/26/24 10/27/24 11:59 23:59 11:59 Intake Total 50 / 50 2640 / 2640 Output Total 100 / 100 Balance 50 / 50 2540 / 2540 I&O: Total Stay 3 10/26/24 16:39 thru 10/27/24 04:39 Intake Total 2690 Output Total 100 Balance 2590 Current Meds Ordered / Administered: Current meds ordered / Administered 3 Generic Name Dose Route Start Last Admin Trade Name Freq PRN Reason Stop Dose Admin Acetaminophen 650 mg 10/27/24 00:32 Acetaminophen 650 Mg Suppository RC Q4H PRN PRN Fever, pain 1-10 Acetaminophen 650 mg 10/27/24 00:32 Acetaminophen 325 Mg Tablet PO Q4H PRN PRN Fever, pain 1-10/10 Al Hydroxide/Mg Hydroxide 30 ml 10/27/24 00:32 Mag Hydrox/Al Hydrox/Simeth 30 Ml Udc PO Q6H PRN PRN Gastric Burning Albuterol Sulfate 2.5 mg 10/27/24 00:32 Albuterol 2.5 Mg/3 Ml Vial.Neb. INHALATION Q2H PRN PRN Dyspnea, wheezing Atorvastatin Calcium 40 mg 10/27/24 22:00 Atorvastatin Calcium 40 Mg Tablet PO QHS SOLEDAD Calamine/Phenol 1 applic 10/27/24 10:00 Menthol/Lanolin/Calamine/Znox 113 Gm Tube TOPICAL 4X/DAY SOLEDAD Protocol Glucagon 1 mg 10/27/24 00:32 Glucagon 1 Mg/Ml Syringe IM X1 PRN HYPOGLYCEMIA Protocol Guaifenesin 10 ml 10/27/24 00:32 Guaifenesin 10 Ml Udc (200mg/10ml) PO Q4H PRN PRN COUGH Hydralazine HCl 10 mg 10/27/24 00:32 Hydralazine 20 Mg/Ml Vial IV Q4H PRN PRN SBP > 160 Protocol Sodium Chloride 1,000 mls @ 75 mls/hr 10/27/24 01:00 10/27/24 01:16 IV 10/27/24 07:39 75 mls/hr .[id number] SOLEDAD Administration Vancomycin IV-PHARMACY TO DOSE 500 mls @ 250 mls/hr 10/27/24 00:32 1 each/ Sodium Chloride IV X1 PRN Rx to Dose Protocol Pantoprazole Sodium 40 mg/ 100 mls @ 330 mls/hr 10/27/24 00:32 10/27/24 01:35 Sodium Chloride IV Infused Q12 SOLEDAD Infusion Piperacillin Sod/Tazobactam 50 mls @ 12.5 mls/hr 10/27/24 06:00 10/27/24 06:27 Sod 3.375 gm/ Sodium Chloride IV 12.5 mls/hr Q8 SOLEDAD Administration Azithromycin 500 mg/ Sodium 255 mls @ 255 mls/hr 10/27/24 10:00 Chloride IV 11/01/24 10:01 Q24 SOLEDAD Dextrose 250 mls @ 0 mls/hr 10/27/24 00:32 Dextrose 10%-Water IV .Q0M PRN HYPOGLYCEMIA Protocol As Directed Sodium Chloride 250 mls @ 15 mls/hr 10/27/24 01:21 IV .[id number] PRN Saline Flush Sodium Chloride 250 mls @ 15 mls/hr 10/27/24 01:21 IV .[id number] PRN Additional IVPB Infusion Vancomycin HCl 750 mg/ Sodium 265 mls @ 250 mls/hr 10/27/24 13:30 Chloride IV Q12H SOLEDAD Insulin Human Lispro 0 unit 10/27/24 00:32 10/27/24 06:27 Insulin Lispro 100 Unit/Ml Insuln.Pen SC Not Given Q6 [facility] Protocol Ipratropium [place] 0.5 mg 10/27/24 00:32 Ipratropium 0.5 Mg/2.5 Ml Solution INHALATION Q4HWA.RT SOLEDAD Melatonin 3 mg 10/27/24 00:32 Melatonin 3 Mg Tablet PO QHS PRN PRN INSOMNIA Metoprolol Tartrate 50 mg 10/27/24 10:00 Metoprolol Tartrate 50 Mg Tablet PO BID [facility] Protocol Morphine Sulfate 2 mg 10/27/24 00:32 10/27/24 01:01 Morphine 2 Mg/Ml Syringe IV 2 mg Q3H PRN PRN Administration Pain Score 6-10 Ondansetron HCl 4 mg 10/27/24 00:32 Ondansetron 4 Mg/2 Ml Vial IV Q8H PRN PRN NAUSEA/VOMITING Oxycodone HCl 2.5 mg 10/27/24 00:32 Oxycodone 5 Mg Tablet PO Q4H PRN PRN Pain Score 4-10 Senna/Docusate Sodium 2 tablet 10/27/24 00:32 Senna/Docusate Sodium 1 Tablet PO BID PRN PRN Constipation Sodium Chloride 10 - 40 ml 10/27/24 01:21 0.9% Saline Lock 10 Ml Syringe IV UD PRN SALINE FLUSH Vancomycin Protocol 1 lab 10/28/24 12:00 Vancomycin Trough/Random Due MC 10/28/24 14:00 DAILY [facility] Lab / Micro Data 10/27/24 06:23 10/27/24 06:23 Labs: Laboratory Results - last 24 hr 10/26/24 18:04: WBC 15.8 H, RBC 5.16, Hgb 15.2, Hct 45.8, MCV 88.8, MCH 29.5, MCHC 33.2, RDW Std Deviation 49.2 H, RDW Coeff of Pollo 15.2 H, Plt Count 285, MPV10.5, Immature Gran % (Auto) 1.400 H, Neut % (Auto) 81.0 H, Lymph % (Auto) 10.5 L, [place] % (Auto) 6.0, Eos % (Auto) 0.4, Baso % (Auto) 0.7, Absolute Neuts (auto)12.8 H, Absolute Lymphs (auto) 1.66, Nucleated RBC % 0, Sodium 140, Potassium 4.1, Chloride 102, Carbon Dioxide 23.2, Anion Gap 15, BUN 20 H, Creatinine 1.27 H, Estim Creat Clear Calc 44.13 L, Est GFR (MDRD) Non-Af 54 L, BUN/Creatinine Ratio 15.6, Glucose 144 H, Calcium 10.7, Phosphorus 3.2, Magnesium 1.4 L, Total Bilirubin 1.11, AST 34, ALT 18, Alkaline Phosphatase 120, Total Protein 8.1, Albumin 4.5, Globulin 3.6, Albumin/Globulin Ratio 1.3, Lipase 15 10/26/24 21:44: Lactic Acid 3.2 H* 10/27/24 01:09: POC Glucose 95 10/27/24 02:20: Lactic Acid 2.4 H* 10/27/24 06:23: WBC 24.0 H, RBC 4.64, Hgb 13.7, Hct 41.7, MCV 89.9, MCH 29.5, MCHC 32.9, RDW Std Deviation 49.7 H, RDW Coeff of Pollo 15.4 H, Plt Count 218, MPV9.8, Immature Gran % (Auto) 0.900, Neut % (Auto) 91.2 H, Lymph % (Auto) 3.1 L, [place] % (Auto) 4.2, Eos % (Auto) 0.0, Baso % (Auto) 0.6, Absolute Neuts (auto) 21.9 H, Absolute Lymphs (auto) 0.75 L, Nucleated RBC % 0 Micro: Microbiology 10/27/24 01:25 Nasal Secretion MRSA (PCR) - Final 10/27/24 00:52 Mucosa - Nasopharyngeal Respiratory Panel (PCR) - Final 10/27/24 02:25 Urine, Random Legionella Antigen - Final 10/27/24 02:25 Urine, Random Streptococcus pneumoniae Antigen (M - Final Imaging Radiology Impression Chest CT 10/26/24 18:37 IMPRESSION: 1. Healing right anterolateral 6th to 9th rib fractures. No pneumothorax. 2. Right middle lobe nodular opacity, possibly infectious in etiology versus neoplasm. 3. Mediastinal lymphadenopathy. 4. Cardiomegaly with mild vascular congestion and interstitial edema. 5. Dependent lung opacities bilaterally, likely atelectasis with infection not excluded. 6. Cholelithiasis with concern for acute cholecystitis. Clinical correlation is recommended. 7. Coronary artery calcification (CAC) is present. 8. Left thyroid nodule up to 1.7 cm. Thyroid ultrasound follow up is recommended. 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 Reading Location: [facility] Gallbladder Ultrasound 10/26/24 18:37 IMPRESSION: 1. Distended gallbladder with gallstones, sludge, wall thickening and pericholecystic edema. Correlate clinically for signs of acute cholecystitis. 2. Mildly nodular liver contour with coarsened echotexture. This could represent early signs of hepatic cirrhosis. 3. Minimal ascites. Reading Location: [facility] Assessment and Plan . Assessment and plan: Physical Exam: Gen - NAD, elderly, ill-appearing HEENT - MM dry. Sclera anicteric Resp - Diminshed BS, few crackles. Mild tachypnea CV - Tachycardic, irregular. No m/g/r Abd - Soft, +TTP Ext - No c/c. +LE edema. Scarring on legs from prior reed Skin - Bruising?on face Neuro - Drowsy but arousable. Mild confusion I have reviewed the pertinent vital sign, laboratory, and imaging data. ASSESSMENT: # Sepsis # Acute cholecystitis # Acute hypoxic respiratory failure # Afib w/ RVR - on eliquis at home # Possible PNA - ?nodular opacity in RML as well # Lactic acidosis # CKD # COPD - on trelegy at home # h/o severe COVID-19 03/2024 - required intubation # h/o histoplasmosis # h/o CVA 2023 # CKD # DM # BPH s/p TURP # Fall PLAN: -On 5L NC, wean to keep sats > 90% -s/p 2L IVF boluses. Hold further IVF for now given worsening O2 requirements and pulm edema on CT -Surgeon consulted, awaiting evaluation this AM. May need C-tube if not a good surgical candidate -Empiric vanc/zosyn/azithro. f/u Cx -Follow lactate, downtrending -PO metop as tolerated, PRN IV metop for worsening RVR. May need drip if not improving -Replete mag -Budesonide, atrovent nebs FEN/GI: NPO Proph DVT/GI: Holding eliquis pending surgery eval updated at bedside Critical Care Time: 60 mins The entirety of this encounter was done via telemedicine using both audio and video. Consent was obtained. 10/27/24 0802 <Electronically signed by Jacky Blackwood MD> Cosigner Signature (if applicable): CC: Dr. Dipak Aguilar, DO~ Signed [facility] Work Phone: 1(713) 319-363709-06-2025 Consult note Author Jesse Robin [facility] Note Date/Time October 27, 2024 3:49am [facility] Medical Records Department [address] [place] [address] Pharmacokinetic/Renal -Consult 10/27/24 0348 MR#: [id number] Acct: [id number] Name: TAZ JOHNSON Rep #:[id number] : 1935 89 From: Jesse Obrien od PCP: Dr. Dipak Aguilar, DO Status:AD M IN Y Location: ICU CVICU20 3-1 Consult Antibiotic Management Pharmacy has been consulted to manage selected antibiotic: Vancomycin Type of Intervention Type of Consult: New start Labs Labs: Sodium 140 mmol/L (133-145) 10/26/24 18:04 Potassium 4.1 mmol/L (3.3-5.1) 10/26/24 18:04 Chloride 102 mmol/L (98-108) 10/26/24 18:04 Carbon Dioxide 23.2 mmol/L (21.0-32.0) 10/26/24 18:04 Anion Gap 15 (5-15) 10/26/24 18:04 BUN 20 mg/dL (4-19) H 10/26/24 18:04 Creatinine 1.27 mg/dL (0.70-1.20) H 10/26/24 18:04 Est GFR (MDRD) Non-Af 54 (>60) L 10/26/24 18:04 BUN/Creatinine Ratio 15.6 RATIO (10-20) 10/26/24 18:04 Glucose 144 mg/dL (70-99) H 10/26/24 18:04 Microbiology Microbiology: Microbiology 10/27/24 02:25 Urine, Random Legionella Antigen - Final 10/27/24 02:25 Urine, Random Streptococcus pneumoniae Antigen (M - Final Dosing Weight Weight used for dosin.3 kg Estimated Creatinine Clearance Estimated Creatinine Clearance: 44.13 Goal Trough Goal Trough: 15-20 mcg/mL Pharmacy Plan for Drug Dosing Pharmacy Plan for Drug Dosing: Pharmacy Service will continue to monitor and adjust dosing as required. LOADING DOSE 2000MG GIVEN 10/27 @ 0115. START 750MG Q12H AND DRAW TROUGH PRIOR TO4TH DOSE Follow-Up Labs Follow-Up Labs: Trough: Vancomycin Date/Time Labs Ordered Labs to be done on [date and time ordered]: 10/28 @ 1300 10/27/24 0349 <Electronically signed by Jesse marmolejo> Date _ Jesse Robin Cosigner Signature (if applicable): Date CC: ~ Signed [facility] Work Phone: [phone]) 955-381909-06-2025 History and physical note Author Fernanda Triplett [facility] Note Date/Time October 27, 2024 1:05am [facility] Medical Records Department [address] [place] [address] H&P Exam - Hospitalist 10/26/24 2242 MR#: [id number] Acct: [id number] Name: TAZ JOHNSON Rep #:[id number] : 1935 89 From: Fernanda Triplett MD PCP: Dr. Dipak Aguilar, DO Status:AD M IN Location: ICU CVU 3-1 HPI - General General Date of Admission: 10/26/24 Date of Service: 10/26/24 Chief Complaint: Abdominal pain, N/V. HPI Narrative The patient is an 89 y/o M w/ PMHx: GERD, Hx CVA w/ associated memory impairment, CKD stage III unclear subtype per GFR trending, Diabetes mellitus type II, PAF, HTN, HLD, GERD, Hx Histoplasmosis, BPH s/p TURP, Former tobacco use who presents to the [facility] ED on 10/26/2024 with onset of abdominal pain specifically right upper quadrant pain since noon on day of presentation shortly after eating clam chowder with significant nausea and sensation that he needed to have a bout of emesis but he was unable although eventually he did force himself to have a small emesis noted to be bilious with normal bowel pattern with normal BM earlier in the day with no fevers but did eventually state onset of chills with a fall reportedly the week prior with bruising to his right side as a result with concern potentially fractures related with his pain prompting ED evaluation. reports he did not get his second dose of eliquis today. Workup in the ED included T97.9, heart rate 71, BP172/114, respiratory rate 17, 96% on room air with heart rate in the ED transiently up to 146, most recent repeat vitals T98.7, heart rate 109, BP 104/58, respiratory rate 26, 93% on 2 L nasal cannula, CBC with WC 15.8, hemoglobin 15.2, platelets 35 with left shift, CMP with BUN/Cr 20/1.27, GFR 54, glucose 144, hepatic profile not marked appearing, lactic acid 3.2, CT chest with a healing right anterior lateral 6th- 9th rib fractures with no pneumothorax, right middle lobe nodular opacity possibly infectious versus neoplasm, mediastinal lymphadenopathy, cardiomegaly with mild vascular congestion and interstitial edema, dependent lung opacities bilaterally likely atelectasis with infection not included, cholelithiasis with concern for acute cholecystitis, left thyroid nodule up to one 6.7 cm, 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 In the ED patient ministered labetalol 20 mg IV x 1, Lopressor 5 mg IV x 1, morphine 4 mg IV x 1, Zofran 4 mg IV x 1, Zosyn 3.375 g IV x 1. In the ED 1L ordered, defererd 30 cc/kg IVFs secondary to concern for overload per discussion with ED physician. ED discussed case with Dr. Cavazos who noted possible intervention Tuesday, may be percutaneous drain but uncertain. [facility] Medical History Type 2 diabetes mellitus Hyperlipidemia HTN (hypertension) Pulmonary hypertension Diverticulosis Insomnia Atrial fibrillation with RVR Histoplasmosis GERD (gastroesophageal reflux disease) History of skin cancer Solar keratosis Ulcer of right leg Burn scar Home Medications ?Medication ?Instructions ?Recorded ?Last Taken ?Type omeprazole 40 mg capsule,delayed 20 mg PO DAILY reflux 07/22/15 09/05/19 06:00 History release albuterol sulfate 90 mcg/actuation 1 puff PO Q6H short ness of breath 09/05/19 09/05/19 12:00 History breath activated powder inhaler multivitamin 1 tab PO QWEEK 09/25/19 [...] acid r eflux 09/30/23 09/30/23 History release furosemide 20 mg tablet 20 mg PO DAILY PRN swelling 10/26/24 Unknown History hydralazine 25 mg tablet mg PO 10/26/24 Unknown Histo ry ipratropium 0.5 mg-albuterol 3 mg 3 ml inhalation TID 10/26/24 Unknown History (2.5 mg base)/3 mL nebulization soln losartan 100 mg tablet 100 mg PO DAILY 10/26/24 Unk nown History magnesium 200 mg tablet 200 mg PO DAILY 10/26/24 Unk nown History metformin 500 mg tablet 500 mg PO BID 10/26/24 Unkno wn History rosuvastatin 20 mg tablet 20 mg PO DAILY 10/26/24 Unkn own History Allergy/AdvReac Type Severity Reaction Status Date / Time No Known Allergies Allergy Verified 10/26/24 16:44 Family History Mother Breast cancer Father Colon cancer Melanoma Brother COPD (chronic obstructive pulmonary disease) Grandfather Multiple myeloma Surgical History History of left hip replacement History of arthroscopic knee surgery History of skin graft History of transurethral resection of prostate History of right hip replacement History of rotator cuff surgery History of tonsillectomy and adenoidectomy Social History household members: spouse Smoking Status: Former smoker how long ago did patient quit smokin years ago alcohol intake: current alcohol intake frequency: a few times a week Alcohol type: wine substance use type: does not use caffeine: No ROS ROS Narrative Admission Review of Systems: CONSTITUTIONAL: No weight loss, fever, + chills, weakness or fatigue. HEENT: Eyes: No visual loss, blurred vision, double vision or yellow sclerae. Ears, Nose, Throat: No hearing loss, sneezing, congestion, runny nose or sore throat. SKIN: No rash or itching, lesions, wounds except for + very stage ecchymoses, abrasions with history of recent fall in addition to chronic scarring in the distal extremities from reed. CARDIOVASCULAR: + Still some discomfort to the thorax from recent fall, chronic mild distal edema with chronic scarring/burn scars. No palpitations, orthopnea,syncopal events. RESPIRATORY: + Does admit to cough, occasionally productive but descriptionmay be chronic. Denies any marked shortness of breath, wheezing, hemoptysis. GASTROINTESTINAL: + anorexia, nausea, vomiting, abdominal pain. No diarrhea, melena, BRBPR. GENITOURINARY: + Chronic urinary frequency. No dysuria, urgency or retention. NEUROLOGICAL: No headache, dizziness, syncope, paralysis, ataxia, numbness or tingling in the extremities, focal weakness, change in bowel or bladder control,seizure. MUSCULOSKELETAL: + muscle, back pain, joint pain or stiffness. HEMATOLOGIC: No anemia. + Easy bleeding/bruising. LYMPHATICS: No enlarged nodes. No history of splenectomy. PSYCHIATRIC: No history of depression or anxiety. ENDOCRINOLOGIC: No reports of sweating, cold or heat intolerance. No polyuria orpolydipsia. ALLERGIES: No history of asthma, hives, eczema or rhinitis. Vital Signs Vital Signs Vital Signs: 10/26/24 16:40 10/26/24 19:23 10/26/24 20:08 Temperature 97.9 F 98.9 F Temperature Source Temporal Oral Pulse Rate 71 146 H 123 H Respiratory Rate 17 20 H 24 H Blood Pressure 172/114 H 196/130 H 136/98 H Blood Pressure Mean 133 152 110 Pulse Ox 96 94 95 Oxygen Delivery Method Room Air Room Air Nasal Cannula Oxygen Flow Rate (L/min) 2 10/26/24 21:23 Temperature 98.7 F Temperature Source Oral Pulse Rate 109 H Respiratory Rate 26 H Blood Pressure 104/58 L Blood Pressure Mean 73 Pulse Ox 93 Oxygen Delivery Method Nasal Cannula Oxygen Flow Rate (L/min) 2 Weight Weight: 199 lb Body Mass Index (BMI) 26.9 Physical Exam Narrative Physical Examination: General: Awake, alert, oriented x 3 and cooperative, seated upright in the ED bed, fatigued and ill-appearing but currently vitals improved. Skin: Normal color, normal turgor, no icterus, no cyanosis except occasional stage ecchymoses, abrasion especially with recent history of fall especially to the thorax as well as bilateral lower extremity venous stasis skin changes/scarring to the distal extremities. HEENT: AT/NC, EOMI, PERRLA, mildly dry MM, no carotid bruits or JVD noted. Lungs: Mildly diminished, greater bases, mild increased respiratory rate but no distress, no appreciated significant rales, ronchi or wheezing. Heart: Irregular irregular; no gallop, rub audible. Abdomen: Soft, notably tender to palpation in the epigastric, right lower and right upper quadrant with rebound significant discomfort to the right upper quadrant, mildly tympanitic, hyperactive BS, difficult to assess HSM given pain with deep palpation. Extremities: No cyanosis, no clubbing, suspect chronic bilateral lower extremityedema with chronic scarring as noted. Neurological: Patient awake, alert, oriented as noted, cognitive function suspect near baseline intact; pupils equally reactive to light and accommodation, cranial nerves grossly normal, moving all 4 extremities, no focaldeficits but does have some mild chronic memory impairments per discussion with spouse, strength severely globally decreased secondary to acute presentation. Psychiatric: Affect appears flat, fatigued, ill-appearing, no acute evidence of depressive or anxiety feelings. Results Lab / Micro Data 10/26/24 18:04 10/26/24 18:04 Labs: Laboratory Results - last 24 hr 10/26/24 18:04: WBC 15.8 H, RBC 5.16, Hgb 15.2, Hct 45.8, MCV 88.8, MCH 29.5, MCHC 33.2, RDW Std Deviation 49.2 H, RDW Coeff of Pollo 15.2 H, Plt Count 285, MPV10.5, Immature Gran % (Auto) 1.400 H, Neut % (Auto) 81.0 H, Lymph % (Auto) 10.5 L, [place] % (Auto) 6.0, Eos % (Auto) 0.4, Baso % (Auto) 0.7, Absolute Neuts (auto)12.8 H, Absolute Lymphs (auto) 1.66, Nucleated RBC % 0, Sodium 140, Potassium 4.1, Chloride 102, Carbon Dioxide 23.2, Anion Gap 15, BUN 20 H, Creatinine 1.27 H, Estim Creat Clear Calc 44.13 L, Est GFR (MDRD) Non-Af 54 L, BUN/Creatinine Ratio 15.6, Glucose 144 H, Calcium 10.7, Total Bilirubin 1.11, AST 34, ALT 18, Alkaline Phosphatase 120, Total Protein 8.1, Albumin 4.5, Globulin 3.6, Albumin/Globulin Ratio 1.3, Lipase 15 10/26/24 21:44: Lactic Acid 3.2 H* Imaging Radiology Impression Chest CT 10/26/24 18:37 IMPRESSION: 1. Healing right anterolateral 6th to 9th rib fractures. No pneumothorax. 2. Right middle lobe nodular opacity, possibly infectious in etiology versus neoplasm. 3. Mediastinal lymphadenopathy. 4. Cardiomegaly with mild vascular congestion and interstitial edema. 5. Dependent lung opacities bilaterally, likely atelectasis with infection not excluded. 6. Cholelithiasis with concern for acute cholecystitis. Clinical correlation is recommended. 7. Coronary artery calcification (CAC) is present. 8. Left thyroid nodule up to 1.7 cm. Thyroid ultrasound follow up is recommended. 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 Reading Location: [facility] Gallbladder Ultrasound 10/26/24 18:37 IMPRESSION: 1. Distended gallbladder with gallstones, sludge, wall thickening and pericholecystic edema. Correlate clinically for signs of acute cholecystitis. 2. Mildly nodular liver contour with coarsened echotexture. This could represent early signs of hepatic cirrhosis. 3. Minimal ascites. Reading Location: [facility] Assessment & Plan Assessment/Plan (1) Sepsis: (2) Acute cholecystitis: PLAN: Plan The patient is an 89 y/o M w/ PMHx: GERD, Hx CVA w/ associated memory impairment, CKD stage III unclear subtype per GFR trending, Diabetes mellitus type II, PAF, HTN, HLD, GERD, Hx Histoplasmosis, BPH s/p TURP, Former tobacco use who presents to the [facility] ED on 10/26/2024 with onset of abdominal pain specifically right upper quadrant pain since noon on day of presentation shortly after eating clam chowder with significant nausea and sensation that he needed to have a bout of emesis but he was unable although eventually he did force himself to have a small emesis noted to be bilious with normal bowel pattern with normal BM earlier in the day with no fevers but did eventually state onset of chills with a fall reportedly the week prior with bruising to his right side as a result with concern potentially fractures related with his pain prompting ED evaluation. #1. Acute Sepsis (source x 2 as noted, tachycardia, tachypnea, hypoxia, lactic acidosis, leukocytosis), multifactorial, secondary to Acute abdominal pain with nausea, emesis secondary to acute cholecystitis complicated by also noted #2: Will admit to the ICU, will consult poultry scalder per protocol, will maintain on IVFs with an additional 1 L now was only given 1 L in the ED secondary concerns for high risk overload, NPO status however will defer to general surgery per their discretion, maintain on IV PPI, IV/po pain control, trend lipase, continueIV Zosyn therapy, monitor CBC and CMP, holding Eliquis therapy with coags requested, PT/OT/case management consult for discharge planning. #2. Questionable bilateral pneumonia, concern for GN/GP given history (frequentPNA, Hx Histoplasmosis prior), in the setting of recent mechanical fall with significant right sided rib fractures with suspected poor inspiratory/expiratoryeffort and significant atelectasis initially: Will maintain on oxygen with wean as tolerated to room air, ATC ipratropium aerosols, PRN albuterol, maintained onIV Zosyn and IV Vanc as well as IV Azithromycin given concurrent presentation #1with MRSA screen requested w/ de-escalation as able, encourage HOB, IS parameters w/ pending sputum cultures, full respiratory viral panel and urine antigens. Bld cx x 2 obtained in the ED. #3. Recent mechanical fall on anticoagulant therapy: Patient per report from fell to the right side and not surprisingly on CT imaging demonstrated a nonacute right anterior lateral 6th through 9th rib fractures as well as old lateral left 10th rib fracture, holding anticoagulant therapy as noted, PT/OT/case management consulted for discharge planning. #4. PAF with RVR: Likely secondary to his acute illness #1, improved rate in the ED with ED IV labetalol and lopressor, will continue metoprolol as able, holding Eliquis given surgical intervention needs. Most recently noted echocardiogram 10/01/2023 with EF 70%, mildly enlarged LA, trivial MVI with repeat echo requested. #5. Chronic Kidney Disease Stage III, unclear subtype or GFR trending: Admission BUN/Cr 20/1.27, GFR 54, baseline renal function primarily more recently noted 1.2-1.6, most recently 10/01/2023 which is unfortunately remote noted to be 1.47, repeat CMP in a.m. to further elucidate what patient's level is currently. #6. Incidentally noted left thyroid nodule: CT of the chest with incidentally noted left thyroid nodule up to 1.7 cm, TSH and free T4 requested, will need outpatient follow-up thyroid ultrasound. #7. 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 #8. Diabetes mellitus type II: Hold oral home regimen, n.p.o. status given presentation as noted, maintain on every 6 hours accu checks w/ ISS. #9. Hypertension: Given current presentation with PAF with RVR and usage of IV beta-mattie therapies in the ED BP now low, will temporarily hold diuretic therapy especially given presentation as noted #1 and focus on continuing beta-mattie therapy only as able, will add back other regimen as able. #10. Hyperlipidemia: Will continue patient home statin therapy. #11. Hx CVA w/ associated memory impairment: Temporarily holding Eliquis as noted, continue statin, continue metoprolol primarily, holding other regimen given lower BP following beta-mattie therapy administration in the ED, add backonce clinically appropriate. PT/OT consulted as noted. #12. Former tobacco use: Encouraged continued tobacco cessation. #13. BPH: From records noted status post TURP status, not on any chronic regimen, monitor for retention. #14. GERD: Will maintain on IV PPI. #15. DVT prophylaxis: SCDs, holding Eliquis given need for intervention. #16. CODE status: Patient FRANKLIN is his who is present and living will is currently in place. Discussed CODE status at length including difference betweenFULL code, DNR-CCA and DNR-CC status. Following discussions about the differences in these status, requested full code. Advanced Care Planning Face toFace Time: 16 minutes. Sepsis Attestation Sepsis Alert: Yes Sepsis Attestation: Agree w/Sepsis Date exam was performed: 10/26/24 Time exam was performed: 18:37 Possible Source of Sepsis: Pulmonary and GI tract/intra-abdominal Sepsis Organ Dysfunction Criteria Present: Lactic Acid > 2 mmol/L and None (source x 2 as noted, tachycardia, tachypnea, hypoxia, lactic acidosis, leukocytosis) Fluid Resuscitation Fluid resuscitation indicated?: Yes Fluid Resuscitation ordered: Lesser volume fluid bolus ordered Amount of fluid ordered: 1,000 Reason for lesser fluid bolus:: Concern for fluid overload and Other (Additional1 L ordered upon admission per Hospitalist.) Charges/Coding Visit Charges Inpatient E&M: 05140 Init Hosp L3 Procedures Hospitalists Procedures: 43046 Advncd Care Plan 30 Min 10/27/24 0010 <Electronically signed by Fernanda Triplett MD> Cosigner Signature (if applicable): CC: Dr. Fernanda Triplett MD; Dr. Dipak Aguilar DO~ Signed ADDENDUM by Dr. Fernanda Triplett MD on 10/27/24 at 0105 Sepsis Attestation Fluid Resuscitation Fluid resuscitation indicated?: Yes Fluid Resuscitation ordered: Lesser volume fluid bolus ordered Amount of fluid ordered: 2,000 Reason for lesser fluid bolus:: Concern for fluid overload Sepsis Note Date exam was performed: 10/27/24 Time exam was performed: 01:05 Sepsis Attestation: Sepsis re-evaluation was performed Response to fluids: Fluid responsive hypotension 10/27/24 0105<Electronically signed by Fernanda Triplett MD> Cosigner Signature (if applicable): cc: Dr. Fernanda Triplett MD; Dr. Dipak Aguilar DO ~* Signed [facility] Work Phone: 1(104) 653-354809-06-2025 Evaluation note* Diagnosis Onset Date Resolution Status Admit Date Acute cholecystitis acute [facility] 2024 10:50pm Anticoagulant long-term use acute October 26, 2024 10:50pm Atrial fibrillation with RVR acute October 26, 2024 10:50pm Dyspnea on exertion acute [facility] 2024 10:50pm Elevated blood pressure reading with diagnosis of hypertension acute October 26, 025 10:50pm Essential hypertension acute [facility]2024 10:50pm Lactic acidosis acute October 26, 2024 10:50pm Palliative care encounter acute October 26, 2024 10:50pm Sepsis acute October 26, 2024 10:50pm Chronic a-fib chronic October 262024 10:50pm [facility] Work Phone: 1(419) 727-660409-06-2025 Discharge summary Author Akira Balnco [facility] Note Date/Time October 26, 2024 10:47pm [facility] Medical Records Department [address] [place] [address] Emergency Department Summary 10/26/24 MR#: [id number] Acct: [id number] Name: TAZ JOHNSON Rep #:[id number] : 1935 89 From: Akira Blanco MD PCP: Dr. Dipak Aguilar DO Status:RE G ER Location: ED HPI History of Present Illness Chief Complaint: Nausea/Vomiting Narrative Narrative: 89-year-old male presents with right upper quadrant pain, nausea that has had since noon today after eating clam chowder from [employer]. This has been ongoing for the last 6-1/2 hours. He states that he did not vomit but he tried to forcehimself to vomit because of his nausea and pain in the right upper quadrant of his abdomen. Only a small amount of bilious material came out. He denies any exacerbating or alleviating factors other than it starting after he ate. He hada normal bowel movement this morning. Denies any fevers but states he feels chilled currently. No prior abdominal surgeries. His is concerned becausehe had a fall last week and he is on blood thinners for atrial fibrillation. Hewas bruised all on his right side. The fact that he is having right upper quadrant abdominal pain, she is concerned that he may have broken a rib from thefall. [facility] Medical History Type 2 diabetes mellitus Hyperlipidemia HTN (hypertension) Pulmonary hypertension Diverticulosis Insomnia Atrial fibrillation with RVR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 of IV beta-mattie therapies in the ED BP now low, will temporarily hold diuretic therapy especially given presentation as noted #1 and focus on continuing beta- mattie therapy only as able, will add back other regimen as able. #10. Hyperlipidemia: Will continue patient home statin therapy. #11. Hx CVA w/ associated memory impairment: Temporarily holding Eliquis as noted, continue statin,continue metoprolol primarily, holding other regimen given lower BP following beta-mattie therapy administration in the ED, add backonce clinically appropriate. PT/OT consulted as noted. #12. Former tobacco use: Encouraged continued tobacco cessation. #13. BPH: From records noted status post TURP status, not on any chronic regimen, monitor for retention. #14. GERD: Will maintain on IV PPI. #15. DVT prophylaxis: SCDs, holding Eliquis given need for intervention. #16. CODE status: Patient [place] is his who is present and living will is currently in place. Discussed CODE status at length including difference betweenFULL code, DNR-CCA and DNR-CC status. Following discussions about the differences in these status, requested full code. Advanced Care Planning Face toFace Time: 16 minutes. Sepsis Attestation Sepsis Alert: Yes Sepsis Attestation: Agree w/Sepsis Date exam was performed: 10/26/24 Time exam was performed: 18:37 Possible Source of Sepsis: Pulmonary and GI tract/intra-abdominal Sepsis Organ Dysfunction Criteria Present: Lactic Acid > 2 mmol/L and None (source x 2 as noted,tachycardia, tachypnea, hypoxia, lactic acidosis, leukocytosis) Fluid Resuscitation Fluid resuscitation indicated?: Yes Fluid Resuscitation ordered: Lesser volume fluid bolus ordered Amount of fluid ordered: 1,000 Reason for lesser fluid bolus:: Concern for fluid overload and Other (Additional1 L ordered upon admission per Hospitalist.) Charges/Coding Visit Charges Inpatient E&M: 85714 Init Hosp L3 Procedures Hospitalists Procedures: 18201 Advncd Care Plan 30 Min 10/27/24 0010 Cosigner Signature (if applicable): CC: Dr. Fernanda Triplett MD; Dr. Dipak Aguilar DO~ Signed [facility]09-05-2025 Discharge summary [facility] Medical Records Department [address] [place] [address] Emergency Department Summary 10/26/24 MR#: [id number] Acct: [id number] Name: TAZ JOHNSON Rep #:[id number] : 1935 89 From: Akira Blanco MD PCP: Dr. Dipak Aguilar DO Status:RE G ER Location: ED HPI History of Present Illness Chief Complaint: Nausea/Vomiting Narrative Narrative: 89-year-old male presents with right upper quadrant pain, nausea that has had since noon today after eating clam chowder from [employer]. This has been ongoing for the last 6-1/2 hours. He states that he did not vomit but he tried to forcehimself to vomit because of his nausea and pain in the right upper quadrant of his abdomen. Only a small amount of bilious material came out. He denies any exacerbating or alleviating factors other than it starting after he ate. He hada normal bowel movement thismorning. Denies any fevers but states he feels chilled currently. No prior abdominal surgeries. Hiswife is concerned becausehe had a fall last week and he is on blood thinners for atrial fibrillation. Hewas bruised all on his right side. The fact that he is having right upper quadrant abdominal pain, she is concerned that he may have broken a rib from thefall. [facility] Medical History Type 2 diabetes mellitus Hyperlipidemia HTN (hypertension) Pulmonary hypertension Diverticulosis Insomnia Atrial fibrillation with RVR Histoplasmosis GERD (gastroesophageal reflux disease) History of skin cancer Solar keratosis Ulcer of right leg Burn scar Home Medications ?Medication ?Instructions ?Recorded ?Last Taken ?Type omeprazole 40 mg capsule,delayed 20 mg PO DAILY reflux 07/22/15 09/05/19 06:00 History release albuterol sulfate 90 mcg/actuation 1 puff PO Q6H short ness of breath 09/05/19 09/05/19 12:00 History breath activated powder inhaler multivitamin 1 tab PO QWEEK 09/25/19 [...] acid r eflux 09/30/23 09/30/23 History release furosemide 20 mg tablet 20 mg PO DAILY PRN swelling 10/26/24 Unknown History hydralazine 25 mg tablet mg PO 10/26/24 Unknown Histo ry ipratropium 0.5 mg-albuterol 3 mg 3 ml inhalation TID 10/26/24 Unknown History (2.5 mg base)/3 mL nebulization soln losartan 100 mg tablet 100 mg PO DAILY 10/26/24 Unk nown History magnesium 200 mg tablet 200 mg PO DAILY 10/26/24 Unk nown History metformin 500 mg tablet 500 mg PO BID 10/26/24 Unkno wn History rosuvastatin 20 mg tablet 20 mg PO DAILY 10/26/24 Unkn own History Allergy/AdvReac Type Severity Reaction Status Date / Time No Known Allergies Allergy Verified 10/26/24 16:44 Family History Mother Breast cancer Father Colon cancer Melanoma Brother COPD (chronic obstructive pulmonary disease) Grandfather Multiple myeloma Surgical History History of left hip replacement History of arthroscopic knee surgery History of skin graft History of transurethral resection of prostate History of right hip replacement History of rotator cuff surgery History of tonsillectomy and adenoidectomy Social History (Updated 10/26/24 @ 22:[address] Fernanda Triplett MD) household members: spouse Smoking Status: Former smoker how long ago did patient quit smokin years ago alcohol intake: current alcohol intake frequency: a few times a week Alcohol type: wine substance use type: does not use caffeine: No ROS ROS ED ROS Narrative Review of systems positive for nausea and right upper quadrant abdominal pain. No fever, but feels chilled currently. No exacerbating or alleviating factors with the exception of it starting after eating clam chowder. No prior abdominalsurgeries. Normal bowel movement today, this morning. No hematemesis. EXAM Physical Exam Narrative Exam Narrative: Afebrile. Vital signs noted. Nontoxic-appearing. Ambulatory in ED to room. Cardiovascular examination reveals an irregular rhythm that is rate controlled at 71 bpm. Lungs are clear to auscultation bilaterally. The abdomen is soft with tenderness to palpation in the right upper quadrant with questionable Diaz sign. Positive bowel sounds. Neurological examination nonfocal, nonlateralizing. Const Vital Signs: 10/26/24 16:40 10/26/24 19:23 10/26/24 20:08 Temperature 97.9 F 98.9 F Temperature Source Temporal Oral Pulse Rate 71 146 H 123 H Respiratory Rate 17 20 H 24 H Blood Pressure 172/114 H 196/130 H 136/98 H Blood Pressure Mean 133 152 110 Pulse Ox 96 94 95 Oxygen Delivery Method Room Air Room Air Nasal Cannula Oxygen Flow Rate (L/min) 2 10/26/24 21:23 Temperature 98.7 F Temperature Source Oral Pulse Rate 109 H Respiratory Rate 26 H Blood Pressure 104/58 L Blood Pressure Mean 73 Pulse Ox 93 Oxygen Delivery Method Nasal Cannula Oxygen Flow Rate (L/min) 2 Sepsis Attestation Sepsis Alert: Yes Sepsis Attestation: Agree w/Sepsis Date exam was performed: 10/26/24 Time exam was performed: 21:45 Possible Source of Sepsis: GI tract/intra-abdominal Sepsis Organ Dysfunction Criteria Present: SBP decrease of more than 40 mmHg andLactic Acid > 2 mmol/L Supportive Findings: Leukocytosis, tachycardia/A-fib with RVR significant drop in systolic blood pressure. Lactic acidosis. Fluid Resuscitation Fluid resuscitation indicated?: Yes Fluid Resuscitation ordered: Lesser volume fluid bolus ordered Amount of fluid ordered: 1,000 Reason for lesser fluid bolus:: Concern for fluid overload MDM MDM MDM Narrative Medical decision making narrative: Differential diagnosis includes but not limited to acute cholecystitis versus gallstone pancreatitis versus gastritis/food poisoning versus bowel obstruction. He does not have a reason to be obstructed. Hypertensive workup was pursued. His was concerned about his blood pressure medication and not being able totake it with elevated blood pressure. He will be monitored. Additionally with her co ncern for rib fracture from previous fall, CT of the chest will be obtained. I do feel that he requires laboratory work as well as imaging of the gallbladder. He will be given morphine and ondansetron as well. I reviewed his laboratory work and he has a leukocytosis of 15.8 with [id number], hematocrit 45.8, platelet count normal at 285. CMP shows BUN of 20 with creatinine 1.27, glucose elevated at 144 with a normal anion gap of 15. AST andALT are normal as well as alk phos and total bilirubin. Lipasenormal at 15 so I doubt pancreatitis. Given that he had fallen last week with her concern for rib fractures, I obtained a CT of the chest. There are anterior lateral rib fractures of [address] scan but no pneumothorax. He also has a right middle lobe opacity which may be infectious versus neoplasm. They did comment on concern for acute cholecystitis on the CT scan. I obtained an ultrasound of the gallbladder as well which is consistent with acute cholecystitis and pericholecystic edema. He has gallstones and sludge. Clinically correlating, I do feel he has acute cholecystitis. Started on Zosyn. He did have a drop in his blood pressure but this was secondary to metoprolol and labetalol for his atrial fibrillation with RVR. I had obtained an EKG and interpreted it independently as A-fib with RVR to [address] changes. No STEMI. Patient was bolused IV fluids. I did obtain a lactic acid as well because he kept complaining of chills. While his repeat temperature did not show him to befebrile, his lactic acid was elevated at 3.2. I discussed patient with Dr. Cavazos with general surgery. As he is on Eliquis, he states he would not take him to surgery until at least Tuesday more than likely and requested that he be admitted to the medicine service. I will discuss patient with Dr. Triplett for admission. Patient discussed with Dr. Triplett. It was felt that given the constellation of symptoms that the patient is septic. I feel it is from an intra-abdominal process mainly is acute cholecystitis. He was bolused 1 L of normal saline with concern for fluid overload. History & Record Review Discussion w/independent historian: Patient and Family Additional record(s) reviewed:: Prior ED visit Lab Data Attestation: I reviewed the patient's lab results. Labs: Laboratory Results - last 24 hr 10/26/24 10/26/24 18:04 21:44 WBC 15.8 H RBC 5.16 Hgb 15.2 Hct 45.8 MCV 88.8 MCH 29.5 MCHC 33.2 RDW Std Deviation 49.2 H RDW Coeff of Pollo 15.2 H Plt Count 285 MPV 10.5 Immature Gran % (Auto) 1.400 H Neut % (Auto) 81.0 H Lymph % (Auto) 10.5 L [place]umbull % (Auto) 6.0 Eos % (Auto) 0.4 Baso % (Auto) 0.7 Absolute Neuts (auto) 12.8 H Absolute Lymphs (auto) 1.66 Nucleated RBC % 0 Sodium 140 Potassium 4.1 Chloride 102 Carbon Dioxide 23.2 Anion Gap 15 BUN 20 H Creatinine 1.27 H Estim Creat Clear Calc 44.13 L Est GFR (MDRD) Non-Af 54 L BUN/Creatinine Ratio 15.6 Glucose 144 H Lactic Acid 3.2 H* Calcium 10.7 Total Bilirubin 1.11 AST 34 ALT 18 Alkaline Phosphatase 120 Total Protein 8.1 Albumin 4.5 Globulin 3.6 Albumin/Globulin Ratio 1.3 Lipase 15 Radiography Diagnostic Testing: Clinical Impression(s) from Imaging Studies Chest CT 10/26/24 18:37 IMPRESSION: 1. Healing right anterolateral 6th to 9th rib fractures. No pneumothorax. 2. Right middle lobe nodular opacity, possibly infectious in etiology versus neoplasm. 3. Mediastinal lymphadenopathy. 4. Cardiomegaly with mild vascular congestion and interstitial edema. 5. Dependent lung opacities bilaterally, likely atelectasis with infection not excluded. 6. Cholelithiasis with concern for acute cholecystitis. Clinical correlation is recommended. 7. Coronary artery calcification (CAC) is present. 8. Left thyroid nodule up to 1.7 cm. Thyroid ultrasound follow up is recommended. 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 Reading Location: [id number] Gallbladder Ultrasound 10/26/24 18:37 IMPRESSION: 1. Distended gallbladder with gallstones, sludge, wall thickening and pericholecystic edema. Correlate clinically for signs of acute cholecystitis. 2. Mildly nodular liver contour with coarsened echotexture. This could represent early signs of hepatic cirrhosis. 3. Minimal ascites. Reading Location: [facility] Management Discussion w/another healthcare provider: Hospitalist (Dr. Ree Triplett) and Soa Engineer (Dr. Cavazos general surgery) Critical Care Time Critical Care Time: Yes Critical care time (excluding procedures): 30-74 minutes (31), Including time spent:, Discussing w/Patient &/or Family/Boarding House Cook, Discussing w/Consultants, Arranging Admission or Transfer and Performing Direct Patient Care at Bedside Discharge Plan Dx/Rx/DC Orders Clinical Impression: Acute cholecystitis, Atrial fibrillation with RVR, Essential hypertension, Lactic acidosis, Sepsis Disposition Disposition: Acute Care Hospital [facility] What to do if you have Problems For any increased pain, shortness of breath, bleeding, nausea or vomiting, chestpain, or any unexpected problems, contact your Primary Care Provider. Call [employer] [facility] ([phone]) or report tothe closest Emergency Room. Call 911 if necessary. 10/26/24 1455 Cosigner Signature (if applicable): CC: Dr. Dipak Aguilar, DO ~ Signed [facility]09-05-2025 Radiology Diagnostic study note [facility] Imaging Services [address] [place], [place] [address] Gallbladder MR#: [id number] Acct: [id number] Name: TAZ JOHNSON Rep #: [id number] : 1935 M 89 From: Fox Palmer MD PCP: Dr. Dipak Aguilar DO Status: RE G ER Study:Gallbladder Date of Exam: 10/26/24 Exam# [id number] Ordering Dr: Akira Blanco MD PROCEDURE: GALLBLADDER 10/26/2024 REASON FOR EXAM: PAIN TECHNIQUE: Procedure Code: USGB Modality: US Procedure: GALLBLADDER. Real-time ultrasound of the right upper quadrant with image documentation COMPARISON: None. FINDINGS: LIMITATIONS: Study limited due to obesity, gas and patient condition. Per the technologist notes "patient states unable and unwilling to turn LLD due to pain/discomfort. Patient was educated that LLD is necessary to evaluate gallbladder. Patient maintained refusal". LIVER ECHOGENICITY: Coarsened liver echotexture. SIZE: Normal measuring 16.7 cm in length. CONTOUR: Mildly nodular. MASS: None. PORTAL VEIN: Normal direction hepatopetal portal venous flow. GALLBLADDER SIZE: Distended. STONES: Multiple gallstones. SLUDGE: Present. WALL THICKNESS: Thickened measuring 12.8 mm. PERICHOLECYSTIC FLUID: Present. SONOGRAPHIC DIAZ'S SIGN: Negative. BILE DUCTS: Normal with the CBD measuring 3.6 mm in diameter. PANCREAS: The pancreas is not visualized due to overlying bowel gas. RIGHT KIDNEY: Normal size and echogenicity with a length of 10.6 cm. No hydronephrosis, nephrolithiasis, cyst or mass seen. ASCITES/EFFUSIONS: Minimal perihepatic ascites. OTHER: None. US/Gallbladder IMPRESSION: 1. Distended gallbladder with gallstones, sludge, wall thickening and pericholecystic edema. Correlate clinically for signs of acute cholecystitis. 2. Mildly nodular liver contour with coarsened echotexture. This could represent early signs of hepatic cirrhosis. 3. Minimal ascites. Reading Location: [id number] CC: Dr. Akira Blanco MD; Dr. Dipak Aguilar DO ~ Junior Qa Analyst: Signed [facility]09-05-2025 Radiology Diagnostic study note [facility] Imaging Services [address] [place] [id number] Chest without Contrast MR#: [id number] Acct: [id number] Name: TAZ JOHNSON Rep #: [id number] : 1935 M 89 From: Fox Palmer MD PCP: Dr. Dipak Aguilar DO Status: RE G ER Study:Chest without Contrast Date of Exam: 10/26/24 Exam# [id number] Ordering Dr: Akira Blanco MD PROCEDURE: CHEST WITHOUT CONTRAST 10/26/2024 REASON FOR EXAM: RIB PAIN. Fell a couple of weeks ago. Nausea and abdominal pain. TECHNIQUE: Chest CT without contrast. Coronal and Sagittal reconstruction series were provided. One or more dose reduction techniques were used (e.g., Automated exposure control, adjustment of the mA and/or kV according to patient size, use of iterative reconstruction technique RADIATION DOSE SUMMARY: CTDlvol: 16.22, 20.02 mGy DLP: 807 mGycm COMPARISON: None. FINDINGS: LUNGS: Respiratory motion is present. Right middle lobe nodular opacity measuring 1.9 x 2.5 cm. Interlobular septal and peribronchovascular interstitial thickening bilaterally. Dependent opacities noted bilaterally. PLEURAL SPACES: No pleural effusion. No pneumothorax. HEART: Moderate cardiomegaly. No significant pericardial effusion. Coronary artery calcification. MEDIASTINUM/HILUM: Multiple enlarged mediastinal lymph nodes. The largest is subcarinal measuring 1.7 x 2.3 cm. AORTA: No aneurysm. Mild scattered calcified atherosclerosis. PULMONARY VESSELS: The pulmonary veins are mildly enlarged. ESOPHAGUS: Unremarkable. CHEST WALL: The chest wall is unremarkable. THYROID: Low attenuating nodule in the left thyroid lobe measuring 1.0 x 1.5 x 1.7 cm. BONES: Respiratory motion limits evaluation of the ribs. Nonacute right anterolateral 6th to 9th rib fractures with callus formation. Old left lateral 10th rib fracture. Suture anchors in the right humeral head. Degenerative changes of the spine and both glenohumeral joints. UPPER ABDOMEN: Small hiatal hernia. Distended gallbladder with gallstones and pericholecystic stranding. Lobulated1.1 cm aneurysm with mural calcification arising from the mid right renal artery (Se: 2, Im: 128-132). Minimal perihepatic ascites. Exophytic 2.9 cm fluid density left renal cyst. CT/Chest without Contrast IMPRESSION: 1. Healing right anterolateral 6th to 9th rib fractures. No pneumothorax. 2. Right middle lobe nodular opacity, possibly infectious in etiology versus neoplasm. 3. Mediastinal lymphadenopathy. 4. Cardiomegaly with mild vascular congestion and interstitial edema. 5. Dependent lung opacities bilaterally, likely atelectasis with infection not excluded. 6. Cholelithiasis with concern for acute cholecystitis. Clinical correlation is recommended. 7. Coronary artery calcification (CAC) is present. 8. Left thyroid nodule up to 1.7 cm. Thyroid ultrasound follow up is recommended. 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 Reading Location: [id number] CC: Dr. Akira Blanco MD; Dr. Dipak Aguilar, DO ~ Junior Qa Analyst: Signed [facility]09-05-2025 Telephone encounter Note* Telephone Encounter - Maryan Ron RN - 10/26/2024 3:26 PM EDT Reason for Conversation Nausea Background Patient calls and states that he ate a bowl of Clam chowder at noon and instantly he felt nauseated. Patient reports that he is feeling bloated and asking how he can make himself throw up. Patient states that he stuck his middle finger down his throat and he could not throw up. Advised patient homecare instructions. Patient states that he is going [...] No Additional Information on file. Protocols Used [id number] [facility]09-05-2025 Miscellaneous Notes* Telephone Encounter - Maryan Ron RN - 10/26/2024 3:26 PM EDT Reason for Conversation Nausea Background Patient calls and states that he ate a bowl of Clam chowder at noon and instantly he felt nauseated. Patient reports that he is feeling bloated and asking how he can make himself throw up. Patient states that he stuck his middle finger down his throat and he could not throw up. Advised patient homecare instructions. Patient states that he is going [...] No Additional Information on file. Protocols Used [id number] documented [facility] Discharge summary Author Akira Blanco [facility] Note Date/Time October 26, 2024 10:47pm [facility] Medical Records Department [address] [place] [address] Emergency Department Summary 10/26/24 MR#: [id number] Acct: [id number] Name: TAZ JOHNSON Rep #:[id number] : 1935 89 From: Akira Blanco MD PCP: Dr. Dipak Aguilar, DO Status:RE G ER Location: ED HPI History of Present Illness Chief Complaint: Nausea/Vomiting Narrative Narrative: 89-year-old male presents with right upper quadrant pain, nausea that has had since noon today after eating clam chowder from [employer]. This has been ongoing for the last 6-1/2 hours. He states that he did not vomit but he tried to forcehimself to vomit because of his nausea and pain in the right upper quadrant of his abdomen. Only a small amount of bilious material came out. He denies any exacerbating or alleviating factors other than it starting after he ate. He hada normal bowel movement this morning. Denies any fevers but states he feels chilled currently. No prior abdominal surgeries. His is concerned becausehe had a fall last week and he is on blood thinners for atrial fibrillation. Hewas bruised all on his right side. The fact that he is having right upper quadrant abdominal pain, she is concerned that he may have broken a rib from thefall. [facility] Medical History Type 2 diabetes mellitus Hyperlipidemia HTN (hypertension) Pulmonary hypertension Diverticulosis Insomnia Atrial fibrillation with RVR Histoplasmosis GERD (gastroesophageal reflux disease) History of skin cancer Solar keratosis Ulcer of right leg Burn scar Home Medications ?Medication ?Instructions ?Recorded ?Last Taken ?Type omeprazole 40 mg capsule,delayed 20 mg PO DAILY reflux 07/22/15 09/05/19 06:00 History release albuterol sulfate 90 mcg/actuation 1 puff PO Q6H short ness of breath 09/05/19 09/05/19 12:00 History breath activated powder inhaler multivitamin 1 tab PO QWEEK 09/25/19 [...] acid r eflux 09/30/23 09/30/23 History release furosemide 20 mg tablet 20 mg PO DAILY PRN swelling 10/26/24 Unknown History hydralazine 25 mg tablet mg PO 10/26/24 Unknown Histo ry ipratropium 0.5 mg-albuterol 3 mg 3 ml inhalation TID 10/26/24 Unknown History (2.5 mg base)/3 mL nebulization soln losartan 100 mg tablet 100 mg PO DAILY 10/26/24 Unk nown History magnesium 200 mg tablet 200 mg PO DAILY 10/26/24 Unk nown History metformin 500 mg tablet 500 mg PO BID 10/26/24 Unkno wn History rosuvastatin 20 mg tablet 20 mg PO DAILY 10/26/24 Unkn own History Allergy/AdvReac Type Severity Reaction Status Date / Time No Known Allergies Allergy Verified 10/26/24 16:44 Family History Mother Breast cancer Father Colon cancer Melanoma Brother COPD (chronic obstructive pulmonary disease) Grandfather Multiple myeloma Surgical History History of left hip replacement History of arthroscopic knee surgery History of skin graft History of transurethral resection of prostate History of right hip replacement History of rotator cuff surgery History of tonsillectomy and adenoidectomy Social History (Updated 10/26/24 @ 22:[address] Fernanda Triplett MD) household members: spouse Smoking Status: Former smoker how long ago did patient quit smokin years ago alcohol intake: current alcohol intake frequency: a few times a week Alcohol type: wine substance use type: does not use caffeine: No ROS ROS ED ROS Narrative Review of systems positive for nausea and right upper quadrant abdominal pain. No fever, but feels chilled currently. No exacerbating or alleviating factors with the exception of it starting after eating clam chowder. No prior abdominalsurgeries. Normal bowel movement today, this morning. No hematemesis. EXAM Physical Exam Narrative Exam Narrative: Afebrile. Vital signs noted. Nontoxic-appearing. Ambulatory in ED to room. Cardiovascular examination reveals an irregular rhythm that is rate controlled at 71 bpm. Lungs are clear to auscultation bilaterally. The abdomen is soft with tenderness to palpation in the right upper quadrant with questionable Diaz sign. Positive bowel sounds. Neurological examination nonfocal, nonlateralizing. Const Vital Signs: 10/26/24 16:40 10/26/24 19:23 10/26/24 20:08 Temperature 97.9 F 98.9 F Temperature Source Temporal Oral Pulse Rate 71 146 H 123 H Respiratory Rate 17 20 H 24 H Blood Pressure 172/114 H 196/130 H 136/98 H Blood Pressure Mean 133 152 110 Pulse Ox 96 94 95 Oxygen Delivery Method Room Air Room Air Nasal Cannula Oxygen Flow Rate (L/min) 2 10/26/24 21:23 Temperature 98.7 F Temperature Source Oral Pulse Rate 109 H Respiratory Rate 26 H Blood Pressure 104/58 L Blood Pressure Mean 73 Pulse Ox 93 Oxygen Delivery Method Nasal Cannula Oxygen Flow Rate (L/min) 2 Sepsis Attestation Sepsis Alert: Yes Sepsis Attestation: Agree w/Sepsis Date exam was performed: 10/26/24 Time exam was performed: 21:45 Possible Source of Sepsis: GI tract/intra-abdominal Sepsis Organ Dysfunction Criteria Present: SBP decrease of more than 40 mmHg andLactic Acid > 2 mmol/L Supportive Findings: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 local pharmacy. Office phone number provided. Carly Lazo LPN [facility]04-10-2025 Telephone encounter Note* Telephone Encounter - Elisa Garcia APRN.TERMINAL COMPUTER OPERATOR - 05/31/2024 8:05 AM EDT I apologize, it is only to be [...] 2 DM - Controlled E11.9 Insulin: Yes Elisa Garcia APRN.CNP [facility]04-10-2025 Miscellaneous Notes* Telephone Encounter - Elisa Garcia APRN.CNP - 05/31/2024 8:05 AM EDT I apologize, it is only to be [...] 2 DM - Controlled E11.9 Insulin: Yes Elisa Garcia APRN.CNP documented in this encounterKettering [facility]04-09-2025 Telephone encounter Note * Telephone Encounter - Carly Lazo LPN - 05/30/2024 5:13 PM EDT Voicemail msg left for patient to return call to [facility] to review if medication needs to go to local pharmacy. Office phone number provided. Carly Lazo LPN [facility]04-09-2025 Telephone encounter Note* Telephone Encounter - Carly Lazo LPN - 05/30/2024 5:10 PM EDT Voicemail msg left for patient to return call to [facility] to review if medication needs to go to local pharmacy. Office phone number provided. Carly Lazo LPN [facility]04-09-2025 Instructions* Patient Instructions* Elisa Garcia APRN.ESTIVEN - 05/30/2024 3:11 PM EDT [...] before taking his pills. The next day takea couple hours after taking his pills. Record these for me for his next appt. documented in this encounterKettering [facility]04-09-2025 NoteHNO ID: [id number] Author: ELISA GARCIA APRN.CNP Service: ? Author Type: Nurse Practitioner Type: Progress Notes Filed: 05/30/2024 18:37 Note Text: Chief Complaint Patient presents with: Follow Up: Kelley leg swelling and elevated BP HPI Taz Johnson is a 89 year old male who [...] GERD (gastroesophageal reflux disease) Melanoma (HCC) 1990 [place] [facility] Nurse Persistent atrial fibrillation (HCC) 10/11/2019 Admitted 09/05/2019 [facility]. Followed by [facility]. Previous Surgical History PAST SURGICAL [...] 2012 L Rotator cuff repair - bilateral [facility] PAST SURGICAL HISTORY OF plastic surgery [...] Family History Patient Allergies ALLERGIES Allergen Reactions Kemah Other: See Comments sneezing,runny nose [place]hertz Cough also [place] with same reaction Mold [...] use: No Review o (more content not included)...[facility]04-09-2025 History of Present illness Narrative* Elisa Garcia APRN.TERMINAL COMPUTER OPERATOR - 05/30/2024 2:38 PM EDT Chief Complaint Patient presents with: Follow Up: Kelley leg swelling and elevated BP HPI Taz Johnson is a 89 year old male who [...] GERD (gastroesophageal reflux disease) Melanoma (HCC) 1991 [place] [facility] Nurse Persistent atrial fibrillation (HCC) 10/11/2019 Admitted 09/05/2019 [facility]. Followed by [facility]. Previous Surgical History PAST SURGICAL [...] 2012 L Rotator cuff repair - bilateral [facility] PAST SURGICAL HISTORY OF plastic surgery for [...] Family History Patient Allergies ALLERGIES Allergen Reactions Kemah Other: See Comments sneezing,runny nose Schertz Cough also [place] with same reaction Mold [...] taking differently: Take 2.5 mg by mouth twotimes a day.) rosuvastatin (CRESTOR) 20 mg tablet [...] the patient and have reviewed the PITER noteand I agree. Other additions or changes: As edited Signature: Elisa Garcia Date: 05/30/2024 Time: 6:36 PM documented in this encounterKettering [facility]04-08-2025 Telephone encounter Note * Telephone Encounter - Dipak Aguilar DO - 05/29/2024 4:53 PM EDT Will forward to [facility] to review with /patient at office visit tomorrow Dipak Aguilar DO [facility]04-08-2025 Miscellaneous Notes* Telephone Encounter - Dipak Aguilar DO - 05/29/2024 4:53 PM EDT Will forward to [facility] to review with /patient at office visit tomorrow Dipak Aguilar DO * Telephone Encounter - Maryan Ron RN - 05/24/2024 10:34 AM EDT Patient's calls with update on patient's leg swelling. reports that swelling is doing really good. Patient's legs are not warm to touch or red and swelling has gone down. Patient has weighed 207.4 on 05/21/2024. Today patient's weight was 202.8. did not give lasix today because leg swelling was down. states that she will not give thelasix unless provider think patient needs to continue taking the lasix. Patient has follow up appointment with provider on 05/30/2024. notes that patient's blood pressure today was 145/98. Patient has prescription order from his time acute rehab facility in [place] for hydralazine 25 mg QID as needed for systolic BP >150. states that she dis not give hydralazine today. Please advise if patient needs to keep taking lasix and about hydralazine prescription. Medication is not listed on patient's medications. Please review and advise, Maryan Ron RN documented in this encounterK[facility]04-03-2025 Telephone encounter Note * Telephone Encounter - Maryan Ron RN - 05/24/2024 10:34 AM EDT Patient's calls with update on patient's leg swelling. reports that swelling is doing really good. Patient's legs are not warm to touch or red and swelling has gone down. Patient has weighed 207.4 on 05/21/2024. Today patient's weight was 202.8. did not give lasix today because leg swelling was down. states that she will not give thelasix unless provider think patient needs to continue taking the lasix. Patient has follow up appointment with provider on 05/30/2024. notes that patient's blood pressure today was 145/98. Patient has prescription order from his time acute rehab facility in [place] for hydralazine 25 mg QID as needed for systolic BP >150. states that she dis not give hydralazine today. Please advise if patient needs to keep taking lasix and about hydralazine prescription. Medication is not listed on patient's medications. Please review and advise, Maryan Ron RN [facility]04-01-2025 Telephone encounter Note* Telephone Encounter - Carrie Del Angel MA - 05/22/2024 4:33 PM EDT Mratina informed Carrie Del Angel MA [place] [id number] Miscellaneous Notes* Telephone Encounter - Carrie Del Angel MA - 05/22/2024 4:33 PM EDT Martina informed Carrie Del Angel MA * Telephone Encounter - Elisa Garcia APRN.CNP - 05/22/2024 2:55 PM EDT Thank you for the update, agree with below. Elisa Garcia APRN.ESTIVEN * Telephone Encounter - Mira Larkin RN - 05/22/2024 2:24 PM EDT See below note as well from snf. Martina physical therapist from [facility] calling today toupdate PT plan of care. States 2x/wk for [...] Hydralazine on hand prescribed by hospital in [place] when he was admitted. Pt is to [...] give him a Hydralazine. Then take it ag ain later and do the same. If the number is below 150, then she is not to give it. She verbalizes understanding. Martina states that nursing is going to start doing daily weights. also instructedto call us back on or Tuesday to let us know how his BP and leg swelling are doing. She verbalizes understanding. * Telephone Encounter - Gabrielle Friedman RN - 05/21/2024 2:28 PM EDT Moira with [facility] calling with Nursing plan of care. HH Nursing will see patient 2 times per week for 1 week , then one time per week for 2 weeks for COPD education, edema monitoring and A-Fib management. No call back needed if provider is agreeable to plan. Gabrielle Friedman RN documented in this encounterKet[facility]04-01-2025 Telephone encounter Note * Telephone Encounter - Elisa Garcia APRN.CNP - 05/22/2024 2:55 PM EDT Thank you for the update, agree with below. Elisa Garcia APRN.CNP [facility]04-01-2025 Telephone encounter Note* Telephone Encounter - Mira Larkin RN - 05/22/2024 2:24 PM EDT See below note as well from snf. Martina physical therapist from [facility] calling today toupdate PT plan of care. States 2x/wk for 4 weeks for lower extremity strengthening, gait training, balance and safety awareness. Martian also wanting to notify that pt's BP [...] Hydralazine on hand prescribed by hospital in [place] when he was admitted. Pt is to [...] give him a Hydralazine. Then take it ag ain later and do the same. If the number is below 150, then she is not to give it. She verbalizes understanding. Martina states that nursing is going to start doing daily weights. also instructedto call us back on or Tuesday to let us know how his BP and leg swelling are doing. She verbalizes understanding. [facility]03-31-2025 Telephone encounter Note* Telephone Encounter - Gabrielle Friedman RN - 05/21/2024 2:28 PM EDT Moira with [facility] calling with Nursing plan of care. HH Nursing will see patient 2 times per week for 1 week , then one time per week for 2 weeks for COPD education, edema monitoring and A-Fib management. No call back needed if provider is agreeable to plan. Gabrielle Friedman RN [facility]03-27-2025 Telephone encounter Note* Telephone Encounter - Kylee Fraser RN - 05/17/2024 3:11 PM EDT [facility] called and asked to have last OV noted faxed over. Faxed to fax # [phone]. [facility]03-27-2025 Miscellaneous Notes* Telephone Encounter - Kylee Fraser RN - 05/17/2024 3:11 PM EDT [facility] called and asked to have last OV noted faxed over. Faxed to fax # [phone]. documented in this encounterKet[facility]03-27-2025 Telephone encounter Note * Telephone Encounter - Monica Vernon LPN - 05/17/2024 10:14 AM EDT Spoke with patients daughter gave information provided . She voices understanding. She wishes to cone picker order for the stair lift . Took to old med recs for cone picker. [facility]03-27-2025 Miscellaneous Notes* Telephone Encounter - Monica Vernon LPN - 05/17/2024 10:14 AM EDT Spoke with patients daughter gave information provided . She voices understanding. She wishes to cone picker order for the stair lift . Took to old med recs for cone picker. * Telephone Encounter - Radha Berman APRN.ESTIVEN - 05/17/2024 8:08 AM EDT Please call patient/family and let them know that lab work results overall look pretty good. BNP issignificantly elevated which explains the swelling in his legs. I would still like to have US DVT. We may need to consider lasix daily if swelling returns after this short 3 day dose of lasix. I seepatient has cardiology appointment upcoming next month so please keep this. Kidney function is improved from priors. HgA1c is increasing slightly to 6.8. I don't see that patient it on anything for diabetes -- we maywant to consider starting metformin. I discussed this with NEHA Pérez and she will discuss options with you at follow-up in 2 weeks. Monica, can we make sure this appointment with Delmi is 40 minutes. 05/30/24. Thank you, Radha Berman APRN.TERMINAL COMPUTER OPERATOR documented in this encounterKettering Health [facility]03-27-2025 NoteHNO ID: [id number] Author: ANANYA SPARKS RDMS Service: ? Author Type: Fire Chief Deputy Type: Progress Notes Filed: 05/18/2024 08:17 Note Text: Radiology Service Progress Note PATIENT NAME: Taz Johnson DATE OF SERVICE: May 18, 2024 TIME: [...] PATIENT PRESENTS WITH AN IMPLANTABLE OR ATTACHED CANE CUTTER: No RADIOLOGY DEPARTMENT: Ultrasound PERIPHERAL IV DATA: Not applicable SIGNED BY: Ananya Sparks RDMS RVT May 18, 2024 8:17 [facility]03-27-2025 Telephone encounter Note* Telephone Encounter - Radha Berman APRN.TERMINAL COMPUTER OPERATOR - 05/17/2024 8:08 AM EDT Please call patient/family and let them know that lab work results overall look pretty good. BNP issignificantly elevated which explains the swelling in his legs. I would still like to have US DVT. We may need to consider lasix daily if swelling returns after this short 3 day dose of lasix. I seepatient has cardiology appointment upcoming next month so please keep this. Kidney function is improved from priors. HgA1c is increasing slightly to 6.8. I don't see that patient it on anything for diabetes -- we maywant to consider starting metformin. I discussed this with NEHA Pérez and she will discuss options with you at follow-up in 2 weeks. Monica, can we make sure this appointment with Delmi is 40 minutes. 05/30/24. Thank you, Radha Berman APRN.TERMINAL COMPUTER OPERATOR [facility]03-26-2025 History of Present illness Narrative* Radha Berman APRN.TERMINAL COMPUTER OPERATOR - 05/16/2024 1:00 PM EDT Chief Complaint Patient presents with: needs referral for pt and ot and uology referral HPI Taz Johnson is a 89 year old male who presents here today for Above Complaints. Taz is an established patient of Dr. Jeff DO. Pt was admitted to [facility] in [place] on 04/13 and 04/15. 04/13-- dx with COPD exacerbation. Found inpatient to have influenza A. Pt refused steroid d/t side effects and left AMA the following day. 04/15 -- pt returned to ED d/t worsening SOB and dx with acute hypoxia respiratory failure. Admittedto ICU and intubated. Blood cultures + for staph. Dx with pneumonia and septic shock. Concern for Zenker's diverticulum while inpatient per notes. Was tachycardic afib RVR during inpatient. Hx of dementia, disoriented most of admission per notes. Pt was eventually discharged from hospital on 04/28 and sent to acute rehab facility. Pt was discharged from rehab facility on 05/11 and drove back to [place] with and daughter. Hx of CVA in December. Never followed up with neurology d/t going [place] the winter months just after this. [...] Family reports legs elevated entire drive from [place] Denies any SOB. Pt is on eliquis since stroke. Needs assistance at home. Currently lives at home back in [place] with . Daughter lives nearby to help. Does not want to move into assistive living or [facility]. Daughter agrees if they can get PT, OT, home health aide, and long term to come to home, he should be [...] on any diuretic. Traveled by car from [place] to [place] yesterday. Reports having legs elevated during the [...] GERD (gastroesophageal reflux disease) Melanoma (HCC) 1991 [place] [facility] Nurse Persistent atrial fibrillation (HCC) 10/11/2019 Admitted 09/05/2019 [facility]. Followed by [facility]. Previous Surgical History PAST SURGICAL [...] 2012 L Rotator cuff repair - bilateral [facility] PAST SURGICAL HISTORY OF plastic surgery for [...] Family History Patient Allergies ALLERGIES Allergen Reactions Kemah Other: See Comments sneezing,runny nose Schertz Cough also [place] with same reaction Mold [...] List Advance Directive Discussion Never done Covid-19 Vaccine() due on 04/28/2024 DTaP,Tdap,Td Vaccine(1 - Tdap) due on 11/28/2024 Depression Screening due on 11/28/2024 Anxiety Screening due on 11/28/2024 Diabetes Screening due on 04/28/2027 Spirometry Completed Influenza Vaccine Completed RSV Vaccine Completed Shingrix Vaccine Completed Pneumococcal Vaccine: 50+ Completed Data reviewed [facility] admissions [facility] Discharge Summary -- scanned into chart. ASSESSMENT/PLAN: 1. Hospital discharge follow-up - ICD9: V67.59, ICD10: Z09 (primary diagnosis) Lab work as below. US DVT and start short burst of lasix, see below plan. Pt needs more assistance in home, see below plan. - [facility] - PATIENT LIFT, ELECTRIC - FUROSEMIDE 20 MG TABLET - COMPREHENSIVE METABOLIC PANEL - COMPLETE BLOOD COUNT AND DIFFERENTIAL - HEMOGLOBIN A1C - LIPID PANEL, FASTING - THYROID STIMULATING HORMONE - CONSULT TO NEUROLOGY - NT PRO BNP - US DVT LOWER BILATERAL - PATIENT LIFT, ELECTRIC 2. Asthma-COPD overlap syndrome (HCC) - ICD9: 493.20, ICD10: J44.89 Improvement. - [facility] - PATIENT LIFT, ELECTRIC - PATIENT LIFT, ELECTRIC 3. Chronic respiratory failure with hypoxia (HCC) - ICD9: 518.83, 799.02, ICD10: J96.11 Improving since discharge. - [facility] - PATIENT LIFT, ELECTRIC - PATIENT LIFT, ELECTRIC 4. Decreased activities of daily living (ADL) - ICD9: V49.89, ICD10: Z78.9 Needs assistance at home with bathing, medication management, PT, and OT. Ordered long term, PT, OT, and home health aide to [facility]. Pt will reach out by Tuesday if they do not hear anything from [facility]. - [facility] - PATIENT LIFT, ELECTRIC - PATIENT LIFT, ELECTRIC 5. Bilateral leg edema - ICD9: 782.3, ICD10: R60.0 US DVT d/t recent long car travel from [place]. L much more swollen than R. Lasix rx x 3 days and then let us know via mychart if swelling returns within a week. RTO in 2 weeks with Elisa to reassess swelling and lab work. May need to consider daily diuretic. - [facility] - PATIENT LIFT, ELECTRIC - FUROSEMIDE 20 MG TABLET - US DVT LOWER BILATERAL - PATIENT LIFT, ELECTRIC 6. Confusion - ICD9: 298.9, ICD10: R41.0 Consult neuro -- has not had follow-up since CVA in December. Also concern for dementia based on sundowning behaviors. - CONSULT TO NEUROLOGY - PATIENT LIFT, ELECTRIC 7. Cerebrovascular accident (CVA), unspecified mechanism (HCC) - ICD9: 434.91, ICD10: I63.9 See above. - CONSULT TO NEUROLOGY - PATIENT LIFT, ELECTRIC 8. Poor mobility - ICD9: 799.89, ICD10: Z74.09 Needs assistance at home. Ordered PT, OT, long term, and home health aide. Mechanical lift chair up stairs needed x2 to help independence d/t still living at home with . Long discussion about considering assisted living or mcc if unable to manage with all of these assisted resources. Daughter agrees but does not think this is needed at the moment. - PATIENT LIFT, ELECTRIC 9. Unsteady gait - ICD9: 781.2, ICD10: R26.81 Needs assistance at home. Ordered PT, OT, long term, and home health aide. Mechanical lift chair up stairs needed x2 to help independence d/t still living at home with . Long discussion about considering assisted living or mcc if unable to manage with all of these assisted resources. Daughter agrees but does not think this is needed at the moment. - PATIENT LIFT, ELECTRIC Corinne Bruce RTO in 2 weeks with Elisa and 3 months with PCP, sooner if [...] coordinating care and coordinating care. Radha Berman APRN.TERMINAL COMPUTER OPERATOR [address] [place] [address] documented in this encounterKettering Health [facility]03-26-2025 NoteHNO ID: [id number] Author: RADHA BERMAN APRN.ESTIVEN Service: ? Author Type: Nurse Practitioner Type: Progress Notes Filed: 05/16/2024 18:48 Note Text: Chief Complaint Patient presents with: needs referral for pt and ot and uology referral HPI Taz Johnson is a 89 year old male who presents here today for Above Complaints. Taz is an established patient of Dr. Jeff DO. Pt was admitted to [facility] in [place] on 04/13 and 04/15. 04/13-- dx with [...] facility on 05/11 and drove back to [place] with and daughter. Hx of CVA in December. Never followed up with neurology d/t going [place] for the winter months just after this. [...] Family reports legs elevated entire drive from [place] Denies any SOB. Pt is on eliquis since stroke. Needs assistance at home. Currently lives at home back in [place] with . Daughter lives nearby to help. Does not want to move into assistive living or mcc. Daughter agrees if they can get PT, OT, home health aide, and long term to come to home, he should be [...] on any diuretic. Traveled by car from [place] to [place] yesterday. Reports having legs elevated [...] GERD (gastroesophageal reflux disease) Melanoma (HCC) 1991 [facility] Nurse Persistent atrial fibrillation (HCC) 10/11/2019 Admitted 09/05/2019 [facility]. Followed by [facility]. Previous Surgical History PAST SURGICAL [...] ACUTE 2004 B, (more content not included)... [facility]12-17-2024 Telephone encounter Note* Telephone Encounter - Heather Bennett MA - 02/07/2024 10:50 AM EST Patient phones requesting refills as follows: Requested Prescriptions Pending Prescriptions Disp Refills ELIQUIS 5 mg tab(s) [Pharmacy Med Name: ELIQUIS TAB 5MG] 180 tablet 0 Sig: TAKE 1 TABLET TWICE A DAY Please review and advise. Heather Bennett MA [facility]12-17-2024 Miscellaneous Notes* Telephone Encounter - Heather Bennett MA - 02/07/2024 10:50 AM EST Patient phones requesting refills as follows: Requested Prescriptions Pending Prescriptions Disp Refills ELIQUIS 5 mg tab(s) [Pharmacy Med Name: ELIQUIS TAB 5MG] 180 tablet 0 Sig: TAKE 1 TABLET TWICE A DAY Please review and advise. Heather Bennett MA documented in this encounterKettering Health [facility]12-10-2024 Telephone encounter Note * Telephone Encounter - Evelio Jack RN - 01/31/2024 1:16 PM EST Patient called and given the below results. Evelio Jack RN [facility]12-10-2024 Miscellaneous Notes* Telephone Encounter - Evelio Jack RN - 01/31/2024 1:16 PM EST Patient called and given the below results. Evelio Jack RN * Telephone Encounter - Evelio Jack RN - 01/31/2024 1:10 PM EST ----- Message from Denae Villareal RN sent at 01/31/2024 12:47 PM EST ----- ----- Message ----- From: Analisa Nicole MD Sent: 01/31/2024 11:59 AM EST To: Denae Poole RN Normal stress Please inform patient sleik documented in this encounterKettering Health [facility]12-10-2024 Telephone encounter Note * Telephone Encounter - Evelio Jack RN - 01/31/2024 1:10 PM EST ----- Message from Denae Villareal RN sent at 01/31/2024 12:47 PM EST ----- ----- Message ----- From: Analisa Nicole MD Sent: 01/31/2024 11:59 AM EST To: Denae Poole RN Normal stress Please inform patient slelizbeth [facility]11-19-2024 Telephone encounter Note* Telephone Encounter - Laura Bejarano LPN - 01/10/2024 4:32 PM EST Pt. informed. [facility]11-19-2024 Miscellaneous Notes* Telephone Encounter - Laura Johns LPN - 01/10/2024 4:32 PM EST Pt. informed. * Telephone Encounter - Dipak Aguilar DO - 01/10/2024 4:26 PM EST Please have patient stop the lipitor and trial on rx as below Dipak Aguilar DO The following approved medication requests have been transmitted electronically. Requested Prescriptions Signed Prescriptions Disp Refills rosuvastatin (CRESTOR) 20 mg tablet 90 tablet 1 Sig: Take 1 tablet by mouth daily at bedtime. Authorizing Provider: DIPAK AGUILAR DO * Telephone Encounter - Monica Vernon LPN - 01/09/2024 1:22 PM EST Pt calls states has been trying to take the atorvastatin but keeps getting terrible diarrhea. Asking if something different could be called into pharmacy in its place. Pt is [facility] [place] wanting this called to [facility] on [address] . documented in this encounterKettering Health [facility]ble11-19-2024 Telephone encounter Note * Telephone Encounter - Dipak Aguilar DO - 01/10/2024 4:26 PM EST Please have patient stop the lipitor and trial on rx as below Dipak Aguilar DO The following approved medication requests have been transmitted electronically. Requested Prescriptions Signed Prescriptions Disp Refills rosuvastatin (CRESTOR) 20 mg tablet 90 tablet 1 Sig: Take 1 tablet by mouth daily at bedtime. Authorizing Provider: DIPAK AGUILAR DO [facility]11-18-2024 Telephone encounter Note* Telephone Encounter - Monica Vernon LPN - 01/09/2024 1:22 PM EST Pt calls states has been trying to take the atorvastatin but keeps getting terrible diarrhea. Asking if something different could be called into pharmacy in its place. Pt is [facility] [place] wanting this called to [facility] in [facility] on [address] . [facility]11-13-[facility]24 Telephone encounter Note* Telephone Encounter - Jacob Escobar - 01/04/2024 2:52 PM EST Clearance scanned in from [facility] placed in Dr. Mar meade to be reviewed. Jacob Escobar January 04, 2024 2:53 PM [facility]11-13-2024 Miscellaneous Notes* Telephone Encounter - Jacob Escobar - 01/04/2024 2:52 PM EST Clearance scanned in from [facility] placed in Dr. Mar meade to be reviewed. Jacob Escobar January 04, 2024 2:53 PM documented in this encounterKettering Health [facility]ble10-22-2024 Telephone encounter Note * Telephone Encounter - Elisa Garcia APRN.CNP - 12/13/2023 1:33 PM EDT Noted, thank you. Elisa Garcia APRN.CNP [facility]10-22-2024 Miscellaneous Notes* Telephone Encounter - Elisa Garcia APRN.CNP - 12/13/2023 1:33 PM EDT Noted, thank you. Elisa Garcia APRN.CNP * Telephone Encounter - Genia Varner MA - 12/13/2023 8:52 AM EDT Pt notified. He received an email from the [facility]ule [facility] but states he leaves tomorrow for [place] for 6 months and will call to set up appt when he returns. Genia Varner MA * Telephone Encounter - Elisa Garcia APRN.CNP - 12/13/2023 6:58 AM EDT Please let him know that I received the results of his chest CT. It shows a new nodule in his rightupper lobe. Radiology is recommending a referral to the lung nodule clinic, so I am placing this. Ibelieve they will call him to schedule his appointment. Otherwise everything else looks good. Elisa Garcia APRN.CNP documented in this encounterKettering Health [facility]10-22-2024 Telephone encounter Note * Telephone Encounter - Genia Varner MA - 12/13/2023 8:52 AM EDT Pt notified. He received an email from the [facility] clinic but states he leaves tomorrow for [place] for 6 months and will call to set up appt when he returns. Genia Varner MA [facility]10-22-2024 Telephone encounter Note* Telephone Encounter - Elisa Garcia APRN.CNP - 12/13/2023 6:58 AM EDT Please let him know that I received the results of his chest CT. It shows a new nodule in his rightupper lobe. Radiology is recommending a referral to the lung nodule clinic, so I am placing this. Ibelieve they will call him to schedule his appointment. Otherwise everything else looks good. Elisa Garcia APRN.ESTIVEN [facility]10-21-2024 NoteHNO ID: [id number] Author: EVELIO JACK RN Service: ? Author Type: Registered Nurse Type: Progress Notes Filed: 12/12/2023 15:57 Note Text: RADIOLOGY SERVICE PROGRESS NOTE SERVICE DATE: 12/12/2023 SERVICE TIME: 1120 PATIENT IDENTITY VERIFICATION COMPLETED USING TWO (2) METHODS: Patient confirmed name and Date of verbally. ALLERGIES AND MEDICATIONS REVIEWED BY: Evelio Jack RN PROCEDURE TYPE: NM STRESS: 0.4 mg of Lexiscan was administered IV at 1120 over 10 Seconds by Evelio Jack RN Reversal agent used:None LOT [id number] 06/16 IV SITE: IV palced by nuclear tecnologist POST EXAM PIV STATUS: Discontinued by Excel Developer PATIENT DISCHARGED TO: Nuclear Medicine Department for post stress imaging A Diagnostic radioactive procedure has taken place, with no further precautions necessary other than routine body substance precautions. More information regarding radiation safety can be found using this link: [email or web address] 20Diagnostic%20Nuclear%20Medicine%[email or web address] SIGNATURE: Evelio Jack RN PATIENT NAME:Taz Johnson DATE: 12/12/23 TIME: 3:56 [facility]10-21-2024 History of Present illness Narrative* Evelio Jack RN - 12/12/2023 3:56 PM EDT RADIOLOGY SERVICE PROGRESS NOTE SERVICE DATE: 12/12/2023 SERVICE TIME: 1120 PATIENT IDENTITY VERIFICATION COMPLETED USING TWO (2) METHODS: Patient confirmed name and Date of verbally. ALLERGIES AND MEDICATIONS REVIEWED BY: Evelio Jack RN PROCEDURE TYPE: NM STRESS: 0.4 mg of Lexiscan was administered IV at 1120 over 10 Seconds by Evelio Jack RN Reversal agent used:None LOT [id number] 06/16 IV SITE: IV palced by nuclear tecnologist POST EXAM PIV STATUS: Discontinued by Excel Developer PATIENT DISCHARGED TO: Nuclear Medicine Department for post stress imaging A Diagnostic radioactive procedure has taken place, with no further precautions necessary other than routine body substance precautions. More information regarding radiation safety can be found usingIntegromicss link: [email or web address] 20Diagnostic%20Nuclear%20Medicine%20Procedures.pdf SIGNATURE: Evelio Jack RN PATIENT NAME:Taz Johnson DATE: 12/12/23 TIME: 3:56 PM documented in this encounterKettering Health [facility]10-21-2024 History of Present illness Narrative* Nessa Ingram, RT(R) - 12/12/2023 10:00 AM EDT RADIOLOGY SERVICE PROGRESS NOTE SERVICE DATE: 12/12/2023 [...] PATIENT PRESENTS WITH AN IMPLANTABLE OR ATTACHED CANE CUTTER: n/a CREATININE: Creatinine Date Value Ref Range [...] creatinine assay has traceable calibration to isotope dilution- mass spectrometry. Refer to KDIGO guidelines for clinical interpretation. In patients with unstable renal function, e.g. those with acute kidney injury, the eGFRmay not accurately reflect actual GFR. eGFR- Date Value Ref Range Status 11/13/[address] >[address] PERFORMED: No IV SITE: Ambulatory: A peripheral IV was started in the Right antecubital site with a Angio cath: 22 gauge. POST EXAM PIV STATUS: Discontinued PROCEDURE TYPE: NM Stress: 8.7 mCi Qy83j-Ldvbsvz was administered IV for Rest Imaging at 10:03 by Nessa Ingram. 28.4 mCi Qo45v-Xzwbkxt was administered IV for Stress Imaging at 11:37 by Nessa Ingram. PATIENT DISCHARGED TO: Ambulatory patient, left RI department area.. A Diagnostic radioactive procedure has taken place, with no further precautions necessary other than routine body substance precautions. More information regarding radiation safety can be found usingthis link: [email or web address] 20Diagnostic%20Nuclear%20Medicine%20Procedures.pdf SIGNATURE: RT Cardona (R) PATIENT NAME: Taz Johnson DATE: December 12, 2023 TIME: 12:35 AM PAGER/CONTACT #: documented in this encounterKettering Health [facility]10-21-2024 NoteHNO ID: [id number] Author: NESSA INGRAM RT (R) Service: Nuclear [...] PATIENT PRESENTS WITH AN IMPLANTABLE OR ATTACHED CANE CUTTER: n/a CREATININE: Creatinine Date Value Ref Range [...] POST EXAM PIV STATUS: Discontinued PROCEDURE TYPE: RI Stress: 8.7 mCi Qs19t-Hnlgjur was administered IV for Rest Imaging at 10:03 by Nessa Ingram. 28.4 mCi Zs94f-Pokgxsg was administered IV for Stress Imaging at 11:37 by Nessa Ingram. PATIENT DISCHARGED TO: Ambulatory patient, left RI department area.. A Diagnostic radioactive procedure has taken place, with no further precautions necessary other than routine body substance precautions. More information regarding radiation safety can be found using this link: [email or web address] 20Diagnostic%20Nuclear%20Medicine%20Procedures.pdf SIGNATURE: RT Dulce(R) PATIENT NAME: Taz Johnson DATE: December 12, 2023 TIME: 12:35 AM PAGER/CONTACT #:[facility]10-21-2024 Telephone encounter Note* Telephone Encounter - Ananya So LPN - 12/12/2023 8:12 AM EDT Patient has a stress test this morning at 10am. He mistakenly took his Atorvastatin and was not sure if he should reschedule. He is leaving out of state for 6 months on Tuesday as well. Please callpatient back at [phone]. Ananya So LPN [facility]10-21-2024 Miscellaneous Notes* Telephone Encounter - Ananya So LPN - 12/12/2023 8:12 AM EDT Patient has a stress test this morning at 10am. He mistakenly took his Atorvastatin and was not sure if he should reschedule. He is leaving out of state for 6 months on Tuesday as well. Please callpatient back at [phone]. Ananya So LPN documented in this encounterKettering Health [facility]10-15-2024 Telephone encounter Note * Telephone Encounter - Jair Ziegler MA - 12/06/2023 10:38 AM EDT Patient active MyChart. Patient notified via [employer] message. Jair Ziegler MA [facility]10-15-2024 Miscellaneous Notes* Telephone Encounter - Jair Ziegler MA - 12/06/2023 10:38 AM EDT Patient active MyChart. Patient notified via [employer] message. Jair Ziegler MA * Telephone Encounter - Dpiak Aguilar DO - 12/06/2023 9:42 AM EDT Please inform patient that his iron levels are normal Dipak Aguilar DO documented in this encounterKettering Health [facility]10-15-2024 Telephone encounter Note * Telephone Encounter - Dipak Aguilar DO - 12/06/2023 9:42 AM EDT Please inform patient that his iron levels are normal Dipak Aguilar DO [facility]10-14-2024 NoteHNO ID: [id number] Author: LAVERN BLAKELY RPFT Service: ? Author Type: Respiratory Therapist Type: Progress Notes Filed: 12/05/2023 13:32 Note Text: PULM FUNCTION: Provider: Elisa Garcia APRN.TERMINAL COMPUTER OPERATOR Assisting Tech: PetAna crockera, RPFT Spirometry w/BD: 1 LV - Box[facility] History of Present illness Narrative* Lavern Blakely RPFT - 12/05/2023 1:31 PM EDT PULM FUNCTION: Provider: Elisa Garcia APRN.TERMINAL COMPUTER OPERATOR Assisting Tech: Lavern Blakely, RPFT Spirometry w/BD: 1 LV - Box: 1 documented in this encounterKettering Health [facility]10-14-2024 History of Present illness Narrative* Amandeep Calderon RT(Bel) - 12/05/2023 11:40 AM EDT Radiology Service Progress Note PATIENT NAME: Taz Johnson DATE OF SERVICE: December 05, 2023 TIME: [...] PATIENT PRESENTS WITH AN IMPLANTABLE OR ATTACHED CANE CUTTER: No RADIOLOGY DEPARTMENT: CT; Exam(s) Completed: Chest PERIPHERAL IV DATA: Not applicable SIGNED BY: RT Radha(Bel) December 05, 2023 2:42 PM documented in this encounterKettering Health [facility]10-14-2024 NoteHNO ID: [id number] Author: AMANDEEP CALDERON RT(R) Service: ? Author Type: Voip Technician Type: Progress Notes Filed: 12/05/2023 14:42 Note Text: Radiology Service Progress Note PATIENT NAME: Taz Johnson DATE OF SERVICE: December 05, 2023 TIME: [...] PATIENT PRESENTS WITH AN IMPLANTABLE OR ATTACHED CANE CUTTER: No RADIOLOGY DEPARTMENT: CT; Exam(s) Completed: Chest PERIPHERAL IV DATA: Not applicable SIGNED BY: RT Radha(Bel) December 05, 2023 2:42 [facility]10-08-2024 NoteHNO ID: [id number] Author: ELISA GARCIA APRN.CNP Service: ? Author Type: Nurse Practitioner Type: Progress Notes Filed: 11/29/2023 12:42 Note Text: Chief Complaint Patient presents with: Medicare Wellness Exam HPI Taz Johnson is a 88 year old male who [...] his doctor during the winter months in [place]. States "they always say everything is fine." Is concerned because his SOB seems to [...] GERD (gastroesophageal reflux disease) Melanoma (HCC) 1991 [facility] Nurse Persistent atrial fibrillation (HCC) 10/11/2019 Admitted 09/05/2019 [facility]. Followed by [facility]. Previous Surgical History PAST SURGICAL [...] 2012 L Rotator cuff repair - bilateral [facility] PAST SURGICAL HISTORY OF plastic surgery [...] Family History Patient Allergies ALLERGIES Allergen Reactions Kemah Other: See Comments sneezing,runny nose Schertz Cough also cyprus with same reaction Mold [...] distress, well-hydrated, well nour (more content not included)...[facility]10-08-2024 History of Present illness Narrative* Elisa Garcia APRN.TERMINAL COMPUTER OPERATOR - 11/29/2023 7:31 AM EDT Chief Complaint Patient presents with: Medicare Wellness Exam HPI Taz Johnson is a 88 year old male who [...] his doctor during the winter months in [place]. States "they always say everything is fine." Is concerned because his SOB seems to [...] GERD (gastroesophageal reflux disease) Melanoma (HCC) 1991 [place] [facility] Nurse Persistent atrial fibrillation (HCC) 10/11/2019 Admitted 09/05/2019 [facility]. Followed by [facility]. Previous Surgical History PAST SURGICAL [...] 2012 L Rotator cuff repair - bilateral [facility] PAST SURGICAL HISTORY OF plastic surgery [...] Family History Patient Allergies ALLERGIES Allergen Reactions Kemah Other: See Comments sneezing,runny nose Schertz Cough also cy[place] with same reaction Mold [...] ICD9: V79.8, ICD10: Z13.39 - ANXIETY SCREENING Elisa Garcia APRN.CNP * Elisa Garcia APRN.CNP - 11/29/2023 7:13 AM EDT Images from the original note were not included. Taz Johnson is a 88 year old male here [...] Personalized prevention plan provided documented in this encounterKettering [facility]10-08-2024 NoteHNO ID: [id number] Author: ELISA GARCIA APRN.ESTIVEN Service: ? Author Type: Nurse Practitioner Type: Progress Notes Filed: 11/29/2023 12:42 Note Text: Taz Johnson is a 88 year old male here [...] avoidance information provided - Personalized prevention plan providedKind[facility]10-02-2024 History of Present illness Narrative* Jeffrey Hdz MD - 11/23/2023 8:40 AM EDT Images from the original note were not included. CONSULT ORTHOPAEDIC: HIP PRIMARY CARE PHYSICIAN: Dipak Aguilar DO REFERRING PROVIDER: No referring provider defined for this encounter. ASSESSMENT & PLAN This is an 88-year-old male who presents with bilateral hip pain. Patient underwent bilateral totalhip replacements a number years ago at an [...] (20-27) severe depression Bone Density Risk Screen Taz Johnson is at risk for bone loss and [...] score on file- please complete the MST screeningtool (click here to open) and refresh the [...] (Hcc) SUBJECTIVE CHIEF COMPLAINT: Hip Pain HPI: Taz Johnson is a 88 year old patient . Taz Johnson has had progressive problems with the hip(s) multiple times a day over the past 2 year(s) interfering with activities which include risingfrom a sitting position, standing for prolonged periods [...] GERD (gastroesophageal reflux disease) Melanoma (HCC) 1990 [facility] Nurse Persistent atrial fibrillation (HCC) 10/11/2019 Admitted 09/05/2019 [facility]. Followed by [facility]. PAST SURGICAL HISTORY Procedure Laterality [...] 2012 L Rotator cuff repair - bilateral [facility] PAST SURGICAL HISTORY OF plastic surgery for [...] Comment: occassional-once weekly Drug use: No ALLERGIES: Kemah, Schertz, and Mold MEDICATIONS: metoprolol tartrate, short acting, [...] which included preparing to see the patient, [id number] patient care, completing clinical documentation, obtaining and/or reviewing separately obtained history, performing a medically appropriate examination, counseling and educating the patient/family/caregiver, ordering medications, tests, or procedures, communicating withother HCPs (not separately reported), independently interpreting results (not separately reported),communicating results to the patient/family/caregiver, and care coordination (not separately reported). SIGNATURE: Jeffrey Hdz MD PATIENT NAME: Taz Johnson DATE: November 23, 2023 TIME: 8:05 AM documented in this encounterKettering Health [facility]10-02-2024 NoteHNO ID: [id number] Author: JEFFREY HDZ MD Service: ? 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 Taz Johnson has had progressive problems with the hip(s) multiple times a day over the past 2 year(s) interfering with activities which include rising from a sitting position, standing for prolonged periods of time, and climbing stairs. The problem began limiting activities 1-3 years ago. PROMIS Physical Function Score No data to display FUNCTIONAL STATUS: Do yardwork, such as raking leaves, weeding (more content not included)...[facility]10-02-2024 History of Present illness Narrative* Debra Kraus Tech - 11/23/2023 8:10 AM EDT Radiology Service Progress Note PATIENT NAME: Taz Johnson DATE OF SERVICE: November 23, 2023 TIME: [...] PATIENT PRESENTS WITH AN IMPLANTABLE OR ATTACHED CANE CUTTER: No RADIOLOGY DEPARTMENT: General X-ray: Exam(s) Completed: Pelvis X-Ray: Pelvis with Hip Bilateral andWt. Bearing Lower Extremity X-Ray(s): Knee, AP / Lat / Tunne / Merchant Right and Wt. Bearing PERIPHERAL IV DATA: Not applicable SIGNED BY: Anat Alarcon November 23, 2023 7:46 AM * Debra Kraus Tech - 11/23/2023 8:10 AM EDT Radiology Service Progress Note PATIENT NAME: Taz Johnson DATE OF SERVICE: November 23, 2023 TIME: [...] PATIENT PRESENTS WITH AN IMPLANTABLE OR ATTACHED CANE CUTTER: No RADIOLOGY DEPARTMENT: General X-ray: Exam(s) Completed: Spine X-Ray(s): Lumbar AP / LAT PERIPHERAL IV DATA: Not applicable SIGNED BY: Anat Alarcon November 23, 2023 8:59 AM documented in this encounterKettering Health [facility]10-02-2024 NoteHNO ID: [id number] Author: DEBRA KRAUS Tech Service: ? Author Type: Voip Technician Type: Progress Notes Filed: 11/23/2023 07:47 Note Text: Radiology Service Progress Note PATIENT NAME: Taz Johnson DATE OF SERVICE: November 23, 2023 TIME: [...] PATIENT PRESENTS WITH AN IMPLANTABLE OR ATTACHED CANE CUTTER: No RADIOLOGY DEPARTMENT: General X-ray: Exam(s) Completed: Pelvis X-Ray: Pelvis with Hip Bilateral and Wt. Bearing Lower Extremity X-Ray(s): Knee, AP / Lat / Tunne / Merchant Right and Wt. Bearing PERIPHERAL IV DATA: Not applicable SIGNED BY: Anat Alarcon November 23, 2023 7:46 [id number] NoteHNO ID: [id number] Author: DEBRA KRAUS Tech Service: ? Author Type: Voip Technician Type: Progress Notes Filed: 11/23/2023 08:59 Note Text: Radiology Service Progress Note PATIENT NAME: Taz Johnson DATE OF SERVICE: November 23, 2023 TIME: [...] PATIENT PRESENTS WITH AN IMPLANTABLE OR ATTACHED CANE CUTTER: No RADIOLOGY DEPARTMENT: General X-ray: Exam(s) Completed: Spine X-Ray(s): Lumbar AP / LAT PERIPHERAL IV DATA: Not applicable SIGNED BY: Anat Alarcon November 23, 2023 8:59 [facility] [id number] Telephone encounter Note* Telephone Encounter - Denae Poole RN - 11/14/2023 9:08 AM EDT Patient's request for medication is as follows: Requested Prescriptions Pending Prescriptions Disp Refills metoprolol tartrate, short acting, (LOPRESSOR) 50 mg tablet 180 tablet 3 Sig: Take 1 tablet by mouth two times a day. Last visit 09/12/23. Next visit 07/02/24. Prescription(s) as above. Please process accordingly. Denae Poole RN [facility]09-23-2024 Miscellaneous Notes* Telephone Encounter - Denae Poole RN - 11/14/2023 9:08 AM EDT Patient's request for medication is as follows: Requested Prescriptions Pending Prescriptions Disp Refills metoprolol tartrate, short acting, (LOPRESSOR) 50 mg tablet 180 tablet 3 Sig: Take 1 tablet by mouth two times a day. Last visit 09/12/23. Next visit 07/02/24. Prescription(s) as above. Please process accordingly. Denae Poole RN documented in this encounterKettering [facility]09-11-2024 Telephone encounter Note * Telephone Encounter - Dipak Aguilar DO - 11/02/2023 11:35 AM EDT Labs ordered Dipak Aguilar DO [facility]09-11-2024 Miscellaneous Notes* Telephone Encounter - Dipak Aguilar DO - 11/02/2023 11:35 AM EDT Labs ordered Dpiak Aguilar DO documented in this encounterKettering Health [facility]09-10-2024 Telephone encounter Note * Telephone Encounter - Mona Mayen MA - 11/01/2023 1:00 PM EDT Patient phones requesting refills as follows: Requested Prescriptions Pending Prescriptions Disp Refills apixaban (ELIQUIS) 5 mg tab(s) 180 tablet 3 Sig: Take 1 tablet by mouth two times a day. Mayur 08/31/2022 Nov Not scheduled Labs 10/2022 Please review and advise. Mona Mayen MA [facility]09-10-2024 Miscellaneous Notes* Telephone Encounter - Mona Mayen MA - 11/01/2023 1:00 PM EDT Patient phones requesting refills as follows: Requested Prescriptions Pending Prescriptions Disp Refills apixaban (ELIQUIS) 5 mg tab(s) 180 tablet 3 Sig: Take 1 tablet by mouth two times a day. Mayur 08/31/2022 Nov Not scheduled Labs 10/2022 Please review and advise. Mona Mayen MA documented in this encounterKettering [facility]08-16-2024 Telephone encounter Note * Telephone Encounter - Carrie Del Angel MA - 10/07/2023 9:18 AM EDT Pt informed. Taken to med rec. Carrie Del Angel MA [facility]08-16-2024 Miscellaneous Notes* Telephone Encounter - Carrie Del Angel MA - 10/07/2023 9:18 AM EDT Pt informed. Taken to med rec. Carrie Del Angel MA * Telephone Encounter - Elisa Garcia APRN.CNP - 10/06/2023 6:13 PM EDT Letter is in the outbox in our office. Elisa Garcia APRN.CNP * Telephone Encounter - Tiffany Beauchamp LPN - 10/05/2023 10:19 AM EDT Pt called asking on status of handicap placard. Is hoping to get it by this weekend. Please advise \\. iTffany Beauchamp LPN * Telephone Encounter - Tiffany Beauchamp LPN - 10/04/2023 8:54 AM EDT Pt states he was hospitalized last week for TIA, expressive aphasia & afib. He reports he gets out of breath quickly. Pt is asking if he is eligible for a handicap placard? If so, call when ready& pt will pick it up. Tiffany Beauchamp LPN documented in this encounterKettering [facility]08-15-2024 Telephone encounter Note * Telephone Encounter - Elisa Garcia APRN.CNP - 10/06/2023 6:13 PM EDT Letter is in the outbox in our office. Elisa Garcia APRN.ESTIVEN [facility] Work Phone: [phone] 496-129508-14-2024 Telephone encounter Note* Telephone Encounter - Evelio Jack RN - 10/05/2023 1:02 PM EDT Patient called and notified. Evelio Jack RN [facility]08-14-2024 Miscellaneous Notes* Telephone Encounter - Evelio Jack RN - 10/05/2023 1:02 PM EDT Patient called and notified. Evelio Jack RN * Telephone Encounter - Heather Bennett MA - 10/04/2023 4:40 PM EDT [employer] message sent to inform. Heather Bennett MA * Telephone Encounter - Evelio Jack RN - 09/28/2023 3:01 PM EDT Left message asking patient to call back for results. Evelio Jack RN * Telephone Encounter - Evelio Jack RN - 09/28/2023 3:00 PM EDT ----- Message from Analisa Nicole MD sent at 09/28/2023 2:17 PM EDT ----- ECHO IS NORMAL Please inform patient arseniolizbeth documented in this encounterKettering Health [facility]ble08-14-2024 Telephone encounter Note * Telephone Encounter - Tiffany Beauchamp LPN - 10/05/2023 10:19 AM EDT Pt called asking on status of handicap placard. Is hoping to get it by this weekend. Please advise \\. Tiffany Beauchamp LPN [facility]08-13-2024 Telephone encounter Note* Telephone Encounter - Heather Bennett MA - 10/04/2023 4:40 PM EDT [employer] message sent to inform. Heather Bennett MA [facility]08-13-2024 Telephone encounter Note* Telephone Encounter - Tiffany Beauchamp LPN - 10/04/2023 8:54 AM EDT Pt states he was hospitalized last week for TIA, expressive aphasia & afib. He reports he gets out of breath quickly. Pt is asking if he is eligible for a handicap placard? If so, call when ready& pt will pick it up. Tiffany Beauchamp LPN [facility]08-07-2024 Telephone encounter Note* Telephone Encounter - Evelio Jack RN - 09/28/2023 3:01 PM EDT Left message asking patient to call back for results. Evelio Jack RN [facility]08-07-2024 Telephone encounter Note* Telephone Encounter - Evelio Jack RN - 09/28/2023 3:00 PM EDT ----- Message from Analisa Nicole MD sent at 09/28/2023 2:17 PM EDT ----- ECHO IS NORMAL Please inform patient mar [facility]07-22-2024 History of Present illness Narrative* Analisa Nicole MD - 09/12/2023 11:01 AM EDT Images from the original note were not included. Analisa Nicole MD Interventional Cardiology [address] [place] [address] [phone] Chief Complaint Patient presents with: New Patient HISTORY OF PRESENT ILLNESS: Mr. Johnson is a 88 year old male seen in my office to establish care patient had prior history ofchronic obstructive airway disease with chronic persistent atrial [...] GERD (gastroesophageal reflux disease) Melanoma (HCC) 1991 [place] [facility] Nurse Persistent atrial fibrillation (HCC) 10/11/2019 Admitted 09/05/2019 [facility]. Followed by [facility]. PAST SURGICAL HISTORY Procedure Laterality [...] 2012 L Rotator cuff repair - [facility] PAST SURGICAL HISTORY OF plastic surgery for [...] weekly Drug use: No ALLERGIES Allergen Reactions [place] Other: See Comments sneezing,runny nose [place] Cough also [place] with same reaction Mold [...] Examination: Vitals:BP 145/99 Pulse 75 Ht 6' 0" (1.83m) Wt 206 lb 3.2 oz (93.5kg) [...] high Hemoglobin A1C: No results found for: "HGBA1C" TSH: No results found for: "TSHREFL" Prior Cardiac Testing EKG Assessment and Plan: [...] to correct any errors. documented in this encounterKettering Health [facility]05-03-2024 Instructions* Patient Instructions* Aj Issa MD - 06/24/2023 8:48 AM EDT [...] may be associated with other problems that interferewith sexual intercourse, such as lack of desire [...] more than 50% of the time generally meansthat there is a problem and treatment is [...] the medication you are using, DO NOT stoptaking the medication. If the problem persists, contact [...] of ED. Choose exercises that you enjoy andwill make a regular part of your day. In addition to reducing the risk of ED, exercise also can help you manage stress. Check with your doctor before starting any exercise program. What doctors treat erectile dysfunction? The type of medical legal investigator who treats ED will depend on the cause of the problem. Based on yourfamily's medical history, as well as your own [...] your problem and refer you to a specialistif needed. Once the cause is identified, there [...] the base of the penis. The band canstay in place for up to 30 minutes. The vacuum device can be safely used to treat most causes of erectile failure. Lack of spontaneity, discomfort, and cumbersomeness of the device seem to be the biggest concerns of patients. Penile injection therapy (intracavernosal injection therapy) Men are taught how to inject medications directly into the erection chambers of the penis to createan erection. Injection therapy is effective in treating a wide variety of erection issues caused byblood vessel, nerve, and psychological conditions. Using a [...] address feelings of anxiety, fear, or guilt thatmay have an impact on sexual dysfunction. Sex therapy can be beneficial to most men when counseling is provided by a skilled sex therapist. Sex therapy also helps a man's partner accept and cope with the problems. A patient whose ED has a clear psychological cause should receive sex therapy counseling before anyinvasive treatments are pursued. Hormone Low hormone levels may play a role in ED. Hormone replacement in the form of topical gels, creams, patches, injections, and pellets are only used after physician evaluation. What are surgical treatment options? Penile prosthesis surgery Inflatable penile prostheses are implanted during outpatient surgery. Once they are part of a man'sbody, they enable him to have an erection [...] or public restroom. Complications following surgery are notcommon, but primarily include infection and mechanical device failure. Approximately 95% of penile implant surgeries are successful in producing erections that enable mento have sexual intercourse. Moreover, patient satisfaction questionnaires show that up to 90% of men who have undergone penile implants say they would choose the surgery again, and overall satisfaction ratings are higher than those reported by men using oral medication or penile injection therapy. documented in this encounterKettering Health [facility]05-03-2024 NoteHNO ID: [id number] Author: AJ ISSA MD Service: ? Author Type: Physician Type: Procedures Filed: 06/27/2023 08:06 Note Text: CYSTOSCOPY PROCEDURE NOTE: 42958-mnnxb/fulg 34437-gbcrq,bx 99305--kjeco/complex 12768--ppfxn 25937--phuohmod cath 87655-vgqsw/dilate BLADDER IRRIGATION, SIMPLE, LAVAG [[id number] Taz Johnson is a 88 year old male who presents for cystoscopy. Pt ID verified with patient: yes Procedure verified with patient: yes Procedure confirmed with physician and client technical support associate: yes Special equipment-cystoscope Dx: UNIVERSAL PROTOCOL / [...] Plan of Care Visit completed when applicable. Aj Issa MD Antibiotic was-Bactrim The benefits, risks, [...] and increase oral fluid intake as directed. Aj Issa MD See progress note for plans Aj Issa [facility]05-03-2024 Procedure note* Aj Issa MD - 06/24/2023 8:30 AM EDTProcedure(s): CYSTOSCOPY Pre-Procedure Diagnose(s): Bladder neck contracture Post-Procedure Diagnose(s): Bladder neck contracture CYSTOSCOPY PROCEDURE NOTE: 57056-xzybm/fulg 25177-kurrp,bx 48785--fbzul/complex 14566--hnwbz 67671--uelesyyc cath 03064-tmxat/dilate BLADDER IRRIGATION, SIMPLE, LAVAG [[id number] Taz Johnson is a 88 year old male who presents for cystoscopy. Pt ID verified with patient: yes Procedure verified with patient: yes Procedure confirmed with physician and client technical support associate: yes Special equipment-cystoscope Dx: UNIVERSAL PROTOCOL / [...] Plan of Care Visit completed when applicable. Aj Issa MD Antibiotic was-Bactrim The benefits, risks, alternatives of the cystoscopy procedure and personnel were discussed with thepatient. The verbal consent was obtained and the [...] and increase oral fluid intake as directed. 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 Pt ID verified with patient: yes Procedure verified with patient: yes Procedure confirmed with physician and client technical support associate: yes Special equipment-cystoscope Dx: UNIVERSAL PROTOCOL / [...] Plan of Care Visit completed when applicable. Aj Issa MD Antibiotic was-Bactrim The benefits, risks, alternatives of the cystoscopy procedure and personnel were discussed with thepatient. The verbal consent was obtained and the [...] and increase oral fluid intake as directed. Aj Issa MD See progress note for plans Aj Issa MD documented in this encounterKettering [facility]05-03-2024 NoteHNO ID: [id number] Author: RINA SHEETS MA Service: ? Author Type: Wrap Knitting Machine Operator Type: Progress Notes Filed: 06/27/2023 08:06 Note Text: Presto Log Operator present:Rina Sheets [facility]05-03-2024 Note HNO ID: [id number] Author: AJ ISSA MD Service: ? Author Type: Physician Type: Progress Notes Filed: 06/27/2023 08:06 Note Text: ESTABLISHED PATIENT OFFICE VISIT PATIENT INFO: Taz Johnson 88 year old HPI 06/24/2023 CC: cysto [...] hung up He is going back to [place] in a few weeks and he knows to reconnect with urology there if he has problems Could always consult with Dr. Summers or Dr. Yamile rTujillo at [facility] who are stricture specialists and he will [...] also Discussed options and [facility] for cystoscopy and urethral dilation and [...] shortness of breath We will schedule at [facility] Bladder scan/postvoid residual-80 cc approximate 06/29/2022 CC: marcy Saw me last noted below and had laser TURP Did well afterwards but then having more trouble so underwent TURP in December 2021 in [place] and did well but over the last [...] daytime frequency but drink (more content not included)...[facility]05-03-2024 History of Present illness Narrative* Rina Sheets MA - 06/24/2023 8:20 AM EDT Presto Log Operator present:Rina Sheets MA * Aj Issa MD - 06/24/2023 8:20 AM EDT ESTABLISHED PATIENT OFFICE VISIT PATIENT INFO: Taz Johnson 88 year old HPI 06/24/2023 CC: cysto [...] hung up He is going back to [place] in a few weeks and he knows to reconnect with urology there if he has problems Could always consult with Dr. Summers or Dr. Yamile Trujillo at [facility] who are stricture specialists andhe will hold off on that for now [...] and saw nurse for voiding trialAs he wassent home same day with Kern catheter in [...] the apical prostate at all--Prostatic fossa was wideopen Bladder scan/PVR: occ 07/20/2022 CC: cysto Months [...] shortness of breath We will schedule at [facility] Bladder scan/postvoid residual-80 cc approximate 06/29/2022 CC: marcy Saw me last noted below and had laser TURP Did well afterwards but then having more trouble so underwent TURP in December 2021 in [place] and did well but over the last [...] are not tender. Urology Procedures: June 24, 20236953-afsuidplcr-rglowyl without stricture and get through prostate apex and mid prostate seenarrow area with ledge at 6:00 once again and distal snug so I cannot get the scope through it easily but I can see through in the bladder neck appears open 12/16/20220260-Zfazmtvwaa-inddsql without stricture and I get through prostatic [...] oclock A guide wire was advanced-Dilation using jogtzl36- sounds up to 26 F October 19, 20224356-leyqxtgcxh-hpyypzw open and apex and mid prostate open but then small hole near 12 o'clock position towards the bladder neck and at 6 o'clock position couple of small holes I think I can see through to the bladder September 14, 20220364-nzjgkwwzde-frkm recurrence of contracture just distal to the bladder neck and the prostate and with a little force passed the scope through it and dilated this very short area of contracture and minimal residual urine August 05, 2022-cystoscopy, dilation, transurethral resection bladder domm-Idjbuobxu-ncbzcyiwxzj inflamed benign urothelial mucosa with dystrophic microcalcifications July 20, 20227513-Gvhtcjtigx-ox urethral stricture but just inside verumontanum I can see just scar tissue further and prostate and could be just the bladder neck or mid prostate and calcification at 2 o'clock position and a few holes more towards 6:00 and they look black as if I can see through them into the bladder possibly September 24, 2016-photo vaporization of the prostate 11/11/2015: Procedure: cysto--Rileyiglesia AHN, Comment: bilobar obstruct; mod trabec Creatinine Date Value Ref Range Status 11/18/2022 1.62 (H) 0.73 - 1.22 mg/dL Final PSA (ng/mL) Date Value 07/22/2016 0.54 08/14/2012 0.84 PSA Screening (ng/mL) Date Value 11/16/2021 0.99 Glucose, Urine (mg/dL) Date Value 10/21/2016 neg Bilirubin, Urine (no units) Date Value 10/21/2016 neg Ketones, Urine (no units) Date Value 10/21/2016 neg Specific Peggs, Ur (no units) Date Value 10/21/2016 1.025 [...] GERD (gastroesophageal reflux disease) Melanoma (HCC) 1990 [place] [facility] Nurse Persistent atrial fibrillation ([facility]) 10/11/2019 Admitted 09/05/2019 [facility]. Followed by [facility]. FAMILY HISTORY Problem Relation Age [...] CAPSULES BY MOUTH ONE HOUR BEFORE APPOINTMENT KRISTOPHER PERSAUD 200-62.5-25 mcg dsdv Inhale as instructed once [...] organic origin - ICD9: 607.84, ICD10: N52.9 Aj Issa Please note: This note has been produced using speech recognition software and may contain errors related to that system including grammar, punctuation, spelling, gender and words and phrases that may be inappropriate. documented in this encounterK[facility]03-27-2024 Miscellaneous Notes* Telephone Encounter - Mariana Clayton MA - 05/18/2023 7:42 AM EDT Patient called requesting the following refill. Requested Prescriptions Pending Prescriptions Disp Refills alfuzosin SR (UROXATRAL) 10 mg 24 hr tablet [Pharmacy Med Name: Alfuzosin HCl ER 10 MG Oral Tablet Extended Release 24 Hour] 90 tablet 0 Sig: Take 1 tablet by mouth once daily Patient last appointment: Visit date not found Patient Phone numbers: [phone] (home) Request is for script(s) to be escript to pharmacy. Mariana Clayton MA documented in this encounterKettering Health [facility]03-11-2024 History of Present illness Narrative* Mini Saldaña RN - 05/02/2023 8:12 AM EDT ACM HERMINIO RN Patient identified by name and date of . Reason for review or outreach: Chart Review Herminio Priority Emergency Department Utilization Utilization in past 6 months: # Occurrences Date Last Occurrence Hospital Admission Hospital Observation ED SNF / Acute Rehab / LTAC ED DIAGNOSES/REASON(S) FOR ED USE: OTHER FINDINGS/SUMMARY: Pt attributed to [facility]. No action needed Patient Attributed To: ANDRY Payer: Rory MARS Action Taken: No action needed Contact made with patient: No, Chart review only. Signature: Mini Saldaña RN documented in this encounterKettering Health [facility]09-29-2023 Miscellaneous Notes* Addendum Note - Radha Berman APRN.CNP - 11/19/2022 3:14 PM EDTAddended by: RADHA BERMAN on: 11/19/2022 03:14 PM Modules accepted: Orders * Telephone Encounter - Radha Berman APRN.CNP - 11/19/2022 3:14 PM EDT The following approved medication requests have been transmitted electronically. Requested Prescriptions Signed Prescriptions Disp Refills omeprazole (PRILOSEC) 20 mg capsule 90 capsule 0 Sig: Take 1 capsule by mouth once daily. 1/2 hr before meal. Authorizing Provider: RADHA BERMAN APRN.CNP * Telephone Encounter - Kate Soares - 11/19/2022 2:59 PM EDT Patient is calling back in stating that [...] (PRILOSEC) 20 mg capsule Contact patient at [phone] when this has been completed. Kate Wetzel * Telephone Encounter - Radha Berman APRN.ESTIVEN - 11/19/2022 12:44 PM EDT Yes, OK to take 2 tablets if needed. The following approved medication requests have been transmitted electronically. Requested Prescriptions Signed Prescriptions Disp Refills omeprazole (PRILOSEC) 20 mg capsule 60 capsule 2 Sig: Take 1 capsule by mouth two times a day as needed. 1/2 hr before meal. Authorizing Provider: RADHA BERMAN APRN.ESTIVEN * Telephone Encounter - Radha Thompson Ma - 11/19/2022 9:31 AM EDT Call to pt and notified him of [...] to correct pharmacy. Pt does not need calledback, made aware to check with Pharmacy later today for new Rx. Radha Thompson Ma * Telephone Encounter - Radha Berman APRN.CNP - 11/19/2022 8:40 AM EDT PLease call patient and let him know that lab work overall looks good! HgA1c is stable and staying within that "pre-diabetes" range. Kidney function is slightly worse than priors. Avoid use of NSAIDs OTC such as ibuprofen, advil, or alleve. The omeprazole medication can be hard on your kidneys, if GERD symptoms are well managed, I would like to try to decrease his dosage to 20mg daily. Lipid panel looks good. Thank you, Radha Berman APRN.TERMINAL COMPUTER OPERATOR documented in this encounterKettering Health [facility]09-11-2023 Miscellaneous Notes* Telephone Encounter - Deisy Felipe RN - 11/01/2022 12:43 PM EDT Patient phones requesting refills as follows: Requested Prescriptions Pending Prescriptions Disp Refills ELIQUIS 5 mg tab(s) [Pharmacy Med Name: ELIQUIS TABS 5MG] 180 tablet 3 Sig: take 1 tablet twice a day metoprolol tartrate, short acting, (LOPRESSOR) 50 mg tablet [Pharmacy Med Name: METOPROLOL TARTRATETABS 50MG] 180 tablet 3 Sig: take 1 tablet twice a day MAYUR 08/31/2022 NOV 09/01/2023 documented in this encounterKettering Health [facility]09-05-2023 Nurse Note* Georgie Hansen RN - 10/26/2022 11:33 AM EDT Patient in for CIC teaching. Given male CIC patient education sheet. Instructed on proper techniqueand s/s of infection, cath after trying to void, how to track. Verbalized understanding to all instruction. Patient able to cath self with nurse instruction/assistance. Used 16 yi coude catheter.Informed patient that he is to CIC once daily. Samples given. Georgie Hansen RN documented in this encounterKettering [facility]08-31-2023 Miscellaneous Notes* Telephone Encounter - Jeffrey Rdz - 10/21/2022 8:52 AM EDT Scheduled for both appointments. Jeffrey Rdz * Telephone Encounter - Monica Yap - 10/21/2022 8:35 AM EDT Left pt vm re: Dr. Issa's message below. He needs scheduled for 2 appts. Asya * Telephone Encounter - Aj Issa MD - 10/20/2022 12:14 PM EDT S/pdilation P: see me for cysto about 4 weeks See nurse next week to show CIC which he will do once each day documented in this encounterKettering Health [facility]08-29-2023 Instructions* Patient Instructions* Aj Issa MD - 10/19/2022 10:47 AM EDT INSTRUCTIONS FROM DR. ISSA: Plan on cyst[facility] with [facility] documented in this encounterKettering Health [facility]ble08-29-2023 Procedure note* Aj Issa MD - 10/19/2022 10:38 AM EDTProcedure(s): CYSTOSCOPY Pre-Procedure Diagnose(s): Slow urinary stream Post-Procedure Diagnose(s): Slow urinary stream CYSTOSCOPY PROCEDURE NOTE: [id number]-rdcgi/fulg 33926-rowzy,bx 09542--evzqw/complex 70424--uhazc 90300--rvkkoyyw cath 03220-yxirj/dilate BLADDER IRRIGATION, SIMPLE, LAVAG [[id number] Taz Johnson is a 87 year old male who presents for cystoscopy. Pt ID verified with patient: yes Procedure verified with patient: yes Procedure confirmed with physician and client technical support associate: yes Special equipment-cystoscope UNIVERSAL PROTOCOL / SAFETY [...] Plan of Care Visit completed when applicable. Aj Issa MD A urinalysis was performed---- revealing no evidence of infection. Antibiotic was-Bactrim The benefits, risks, alternatives of the cystoscopy procedure and personnel were discussed with thepatient. The verbal consent was obtained and the [...] but then small hole near 12 o'clock positiontowards the bladder neck and at 6 o'clock position couple of small holes I think I can see through to the bladder At the conclusion of the procedure, the flexible cystoscope was removed atraumatically. The patient tolerated the procedure without complications. Patient was given standard post-procedure instructions, and was directed to complete the course of oral antibiotics and increase oral fluid intake as directed. Aj Issa MD See progress note for plans Aj Issa MD documented in this encounterKettering Health [facility]08-29-2023 History of Present illness Narrative* Aj Issa MD - 10/19/2022 10:10 AM EDT ESTABLISHED PATIENT OFFICE VISIT PATIENT INFO: Taz Johnson 87 year old HPI 10/19/2022 CC: cysto [...] also Discussed options and will take to [facility] tomorrow for cystoscopy and urethral [...] and saw nurse for voiding trialAs he wassent home same day with Kern catheter in [...] the apical prostate at all--Prostatic fossa was wideopen Bladder scan/PVR: occ 07/20/2022 CC: cysto Months [...] shortness of breath We will schedule at [facility] Bladder scan/postvoid residual-80 cc approximate 06/29/2022 CC: marcy Saw me last noted below and had laser TURP Did well afterwards but then having more trouble so underwent TURP in December 2021 in [place] and did well but over the last [...] are not tender. Urology Procedures: October 19, [id number]-mcbshhk open and apex and mid prostate open but then small hole near 12 o'clock position towards the bladder neck and at 6 o'clock position couple of small holes I think I can see through to the bladder September 14, [id number]-fjfqilggtp-sumu recurrence of contracture just distal to the bladder neck and the prostate and with a little force passed the scope through it and dilated this very short area of contracture and minimal residual urine August 05, 2022-cystoscopy, dilation, transurethral resection bladder crox-Ltdwxyeof-kdyoozfeomh inflamed benign urothelial mucosa with dystrophic microcalcifications July 20, [id number]-Ledksfsdxz-wu urethral stricture but just inside verumontanum I can see just scar tissue further and prostate and could be just the bladder neck or mid prostate and calcification at 2 o'clock position and a few holes more towards 6:00 and they look black as if I can see through them into the bladder possibly September 24, 2016-photo vaporization of the prostate 11/11/2015: Procedure: cysto--[facility], Comment: bilobar obstruct; mod trabec Creatinine Date Value Ref Range Status 07/29/2022 1.42 (H) 0.73 - 1.22 mg/dL Final PSA (ng/mL) Date Value 07/22/2016 0.54 08/14/2012 0.84 PSA Screening (ng/mL) Date Value 11/16/2021 0.99 Glucose, Urine (mg/dL) Date Value 10/21/2016 neg Bilirubin, Urine (no units) Date Value 10/21/2016 neg Ketones, Urine (no units) Date Value 10/21/2016 neg Specific Peggs, Ur (no units) Date Value 10/21/2016 1.025 [...] GERD (gastroesophageal reflux disease) Melanoma (HCC) 1990 [place] [facility] Nurse Persistent atrial fibrillation (HCC) 10/11/2019 Admitted 09/05/2019 [facility]. Followed by [facility]. FAMILY HISTORY Problem Relation Age [...] needed. 30 to 60 minutes prior to sexualintercourse^Disp: 30 tablet^Rfl: 1 apixaban (ELIQUIS) 5 mg tab(s)^Take 1 tablet by mouth twice daily.^Disp: 180 tablet^Rfl: 3 metoprolol tartrate, short acting, (LOPRESSOR) 50 mg tablet^Take 1 tablet by mouth twice daily.^Disp: 180 tablet^Rfl: 3 alfuzosin SR (UROXATRAL) 10 mg 24 hr tablet^Take 1 tablet by mouth once daily.^Disp: 30 tablet^Rfl:11 omeprazole (PRILOSEC) 40 mg capsule^Take 1 capsule [...] per tablet^Take 1 tablet by mouth twice dailyfor 7 days.^Disp: 14 tablet^Rfl: 0 (Patient not taking: Reported on 10/19/2022) tolterodine ER (DETROL LA) 2 mg 24 hr capsule^Take 2 capsules by mouth once daily.^Disp: 30 capsule^Rfl: 11 (Patient not taking: Reported on 10/19/2022) amoxicillin (AMOXIL) 500 mg capsule^TAKE FOUR CAPSULES BY MOUTH ONE HOUR BEFORE APPOINTMENT^Disp: ^Rfl: albuterol HFA (VENTOLIN HFA) 90 mcg/actuation inhaler^Inhale 2 Puffs as instructed every 4 hours asneeded for wheezing/shortness of breath. Also can use 10 minutes before exercise^Disp: 18 g^Rfl: 2 (Patient not taking: No sig reported) ProAir RespiClick 90 mcg/actuation breath activated (albuterol sulfate)^Inhale 1 Puff as instructedfour times daily as needed.^Disp: 1 Each^Rfl: 11 [...] of micturition - ICD9: 788.41, ICD10: R35.0 Aj Issa Please note: This note has been produced using speech recognition software and may contain errors related to that system including grammar, punctuation, spelling, gender and words and phrases that may be inappropriate. documented in this encounterKettering Health [facility]ble08-25-2023 Miscellaneous Notes* Telephone Encounter - Heather Welch LPN - 10/15/2022 8:11 AM EDT Spoke with pt and information listed below given. Pt verbalizes understanding. Heather Welch LPN * Telephone Encounter - Radha Berman APRN.CNP - 10/14/2022 2:38 PM EDT Consult placed. No specific referral, any doctor is fine. Thank you, Radha Berman APRN.TERMINAL COMPUTER OPERATOR * Telephone Encounter - Heather Welch LPN - 10/14/2022 9:31 AM EDT Pt calling for a referral to Gastro at [facility]. Pt asking if there is a doctor there you would recommend. Dx is GERD. Please advise pt. Heather Welch LPN documented in this encounterKettering Health [facility]ble08-22-2023 History of Present illness Narrative* Beata Watkins APRN.ESTIVEN - 10/12/2022 11:40 AM EDT ESTABLISHED PATIENT OFFICE VISIT HISTORY OF PRESENT ILLNESS Taz Johnson is a 87 year old male with [...] (no units) Date Value 10/21/2016 neg Specific Peggs, Ur (no units) Date Value 10/21/2016 1.025 Hemoglobin/Blood,Ur (no units) Date Value 10/21/2016 moderate pH, Urine (no units) Date Value 10/21/2016 6.0 Protein, Urine (mg/dL) Date Value 10/21/2016 neg Nitrites (no units) Date Value 10/21/2016 neg MEDICATIONS: sildenafil (VIAGRA) 50 mg tablet Take 1 tablet by mouth as needed. 30 to 60 minutes prior to sexualintercourse apixaban (ELIQUIS) 5 mg tab(s) Take 1 [...] 2 Puffs as instructed every 4 hours asneeded for wheezing/shortness of breath. Also can use 10 minutes before exercise (Patient not taking: No sig reported) Tadalafil (CIALIS) 10 mg tablet Take 1 tablet once daily as needed for erectile dysfunction TRELEGY ELLIPTA 200-62.5-25 mcg dsdv Inhale as instructed once daily. ProAir RespiClick 90 mcg/actuation breath activated (albuterol sulfate) Inhale 1 Puff as instructedfour times daily as needed. cetirizine (ZYRTEC) 10 [...] GERD (gastroesophageal reflux disease) Melanoma (HCC) 1990 [place] [facility] Nurse Persistent atrial fibrillation (HCC) 10/11/2019 Admitted 09/05/2019 [facility]. Followed by [facility]. FAMILY HISTORY Problem Relation Age [...] 2012 L Rotator cuff repair - bilateral [facility] PAST SURGICAL HISTORY OF plastic surgery for [...] URINE CULTURE - prelim Bactrim Beata Watkins APRN.TERMINAL COMPUTER OPERATOR documented in this encounterKettering Health [facility]ble08-10-2023 Miscellaneous Notes* Addendum Note - Mirza Carrillo LPN - 09/30/2022 10:03 AM EDTAddended by: MIRZA CARRILLO LPN on: 09/30/2022 10:03 AM Modules accepted: Orders * Telephone Encounter - Mirza Carrillo LPN - 09/30/2022 9:59 AM EDT Patient calling back now wants rx sent to [facility] for the generic viagra please. Aware PCP is out of office and asking to have request sent to [facility] to review. Pending rx needs completed. Please advise * Telephone Encounter - Monica Vernon LPN - 09/30/2022 9:25 AM EDT Spoke with pt gave information provided. Pt voices understanding. * Telephone Encounter - iDpak Aguilar DO - 09/29/2022 10:21 PM EDT Viagra dosing would be 50 mg Dipak Aguilar DO * Telephone Encounter - Tiffany Beauchamp LPN - 09/29/2022 9:48 AM EDT Pt states he has been taking cialis [...] advise Tiffany Beauchamp LPN documented in this encounterKettering Health [facility]ble07-11-2023 History of Present illness Narrative* Wes Mcintosh MD - 08/31/2022 8:30 AM EDT Images from the original note were not included. [facility] [place] [facility] Department of Cardiovascular Medicine OUTPATIENT VISIT DATE 08/31/22 OUTPATIENT VISIT TYPE ESTABLISHED PRIMARY CARE PHYSICIAN: Dipak Aguilar, [address] [facility] [id number] CHIEF COMPLAINT: Patient presents with: CARD Follow Up Annual HISTORY OF PRESENT ILLNESS: Taz Johnson is a 87 year old male. 08/31/21 [...] GERD (gastroesophageal reflux disease) Melanoma (HCC) 1990 [place] [facility] Nurse Persistent atrial fibrillation (HCC) 10/11/2019 Admitted 09/05/2019 [facility]. Followed by [facility]. PAST SURGICAL HISTORY Procedure Laterality [...] 2012 L Rotator cuff repair - bilateral [facility] PAST SURGICAL HISTORY OF plastic surgery [...] No Family History ALLERGIES: ALLERGIES Allergen Reactions [place] Other: See Comments sneezing,runny nose [place] Cough also cy[place] with same reaction Mold [...] activated (albuterol sulfate) Inhale 1 Puff as instructedfour times daily as needed. cetirizine (ZYRTEC) 10 mg tablet Take 10 mg by mouth once daily. sulfamethoxazole-trimethoprim (BACTRIM DS) 800-160 mg per tablet Take 1 tablet by mouth twice daily. (Patient not taking: Reported on 08/31/2022) albuterol HFA (VENTOLIN HFA) 90 mcg/actuation inhaler Inhale 2 Puffs as instructed every 4 hours asneeded for wheezing/shortness of breath. Also can use [...] Cuff Size: Large Adult) Pulse 74 Wt 93.4kg (206 lb) BMI 27.18 kg/m General: Well [...] CARDIOVASCULAR MEDICINE TESTING: No results found for: "LVEF" Last EKG Result Conclusion ECG COMPLETE Collected: [...] 1.15 11/11/2017 1.11 No results found for: "MG" Hemoglobin (g/dL) Date Value 07/29/2022 14.9 11/16/2021 17.2 11/13/2020 16.5 11/12/2019 16.4 No results found for: "PROBNP" No results found for: "HSTNT" Cholesterol, Total (mg/dL) Date Value 11/16/2021 156 [...] of any further assistance. Wes Mcintosh MD, [facility] Department of Cardiovascular Medicine [facility] [place] [address] Medical Decision Making: Problems: Moderate: 2+ stable chronic illnesses Data: Unique test result(s) reviewed: 1 Risk: Low: Low risk from testing/treatment Moderate: Drug management Medical Decision Making Level: 4 - Moderate documented in this encounterKettering Health [facility]06-30-2023 Miscellaneous Notes* Telephone Encounter - Rina Sheets Cma - 08/20/2022 10:20 AM EDT Patient advised-urine culture was positive so I sent prescription for Bactrim to his pharmacy Patient agreed. Rina Sheets Cma * Telephone Encounter - Aj Issa MD - 08/20/2022 10:06 AM EDT Inform patient that urine culture was positive so I sent prescription for Bactrim to his pharmacy documented in this encounterKettering Health [facility]ble06-27-2023 Instructions* Patient Instructions* Aj Issa MD - 08/17/2022 10:33 AM EDT INSTRUCTIONS FROM DR. ISSA: Start the Detrol medication and see if it helps with leakage issues and I sent to your local pharmacy I will perform cystoscopy in the office when I see you back in about 4 weeks documented in this encounterKettering Health [facility]ble06-27-2023 History of Present illness Narrative* Aj Issa MD - 08/17/2022 10:19 AM EDT ESTABLISHED PATIENT OFFICE VISIT PATIENT INFO: Taz Johnson 87 year old HPI 08/17/2022 CC: tur Status post transurethral section bladder neck contracture and saw nurse for voiding trialAs he wassent home same day with Kern catheter in [...] the apical prostate at all--Prostatic fossa was wideopen Scores/PVR: Bladder scan/PVR: occ Past Urology Hx: [...] shortness of breath We will schedule at [facility] Bladder scan/postvoid residual-80 cc approximate 06/29/2022 CC: marcy Saw me last noted below and had laser TURP Did well afterwards but then having more trouble so underwent TURP in December 2021 in [place] and did well but over the last month slower stream and nocturia 3-4 and moreUrgency Dipstick urine negative Residual urine 79 cc Not on alpha blockers and so we will add Uroxatrol and see if helpful Jacks as needed already and on Eliquis Cystoscopy [...] August 05, 2022-cystoscopy, dilation, transurethral resection bladder bnen-Enzjinums-nvunyktzmbk inflamed benign urothelial mucosa with dystrophic microcalcifications July 20, 20221217-Ztzgjnjskz-qx urethral stricture but just inside verumontanum I [...] (no units) Date Value 10/21/2016 neg Specific Peggs, Ur (no units) Date Value 10/21/2016 1.025 [...] GERD (gastroesophageal reflux disease) Melanoma (HCC) 1990 [place] [facility] Nurse Persistent atrial fibrillation (HCC) 10/11/2019 Admitted 09/05/2019 [facility]. Followed by [facility]. FAMILY HISTORY Problem Relation Age [...] activated (albuterol sulfate) Inhale 1 Puff as instructedfour times daily as needed. cetirizine (ZYRTEC) 10 mg tablet Take 10 mg by mouth once daily. tolterodine ER (DETROL LA) 2 mg 24 hr capsule Take 2 capsules by mouth once daily. albuterol HFA (VENTOLIN HFA) 90 mcg/actuation inhaler Inhale 2 Puffs as instructed every 4 hours asneeded for wheezing/shortness of breath. Also can use [...] ER 2 MG CAPSULE,EXTENDED RELEASE 24 HR Aj Issa Please note: This note has been produced using speech recognition software and may contain errors related to that system including grammar, punctuation, spelling, gender and words and phrases that may be inappropriate. documented in this encounterKettering Health [facility]ble06-19-2023 Nurse Note* Kylee Chang - 08/09/2022 10:10 AM EDT Pt in office today for a fill [...] to urinate. Pt verbalized understanding of instructions. Kylee Chang RN documented in this encounterKettering Health [facility]ble06-15-2023 Miscellaneous Notes* Telephone Encounter - Chante Reyes - 08/05/2022 1:04 PM EDT Patient has been moved to Tuesday08/09/2022 for voiding trial at [facility]. Chante Reyes * Telephone Encounter - Aj Issa MD - 08/05/2022 10:46 AM EDT S/p TURP P: pt has appt with nurse next --see if they want to move that to tue or if nursing can do active void trial then documented in this encounterKettering Health [facility]ble06-05-2023 History of Present illness Narrative* Crystal Pradhan APRN.TERMINAL COMPUTER OPERATOR - 07/26/2022 9:25 AM EDT Chief Complaint Patient presents with: Pre-Op Exam HPI Taz Johnson is a 87 year old male who [...] history of colon cancer Melanoma (HCC) 1990 [place] [facility] Nurse Persistent atrial fibrillation (HCC) 10/11/2019 Admitted 09/05/2019 [facility]. Followed by [facility]. Previous Surgical History PAST SURGICAL [...] 2012 L Rotator cuff repair - bilateral [facility] PAST SURGICAL HISTORY OF plastic surgery for [...] Family History Patient Allergies ALLERGIES Allergen Reactions Kem[place] Other: See Comments sneezing,runny nose [place] Cough also [place] with same reaction Mold Cough Current Medications Current Outpatient Medications on File Prior to Visit Medication Sig alfuzosin SR (UROXATRAL) 10 mg 24 hr tablet Take 1 tablet by mouth once daily. omeprazole (PRILOSEC) 40 mg capsule Take 1 capsule by mouth once daily. albuterol HFA (VENTOLIN HFA) 90 mcg/actuation inhaler Inhale 2 Puffs as instructed every 4 hours asneeded for wheezing/shortness of breath. Also can use [...] activated (albuterol sulfate) Inhale 1 Puff as instructedfour times daily as needed. multivitamin tablet Twice [...] are well controlled and stable. Crystal Pradhan APRN.TERMINAL COMPUTER OPERATOR documented in this encounterKettering Health Preble06-01-2023 Miscellaneous Notes* Telephone Encounter - Yoko MENDES - 07/22/2022 11:37 AM EDT Pt is scheduled for C&P, urethral dilation, possible DVIU, TURP with Dr Iss[facility] at [facility] on 08/05/22 @ 8:00 (6:00 arrival). PAT and labs on 07/29/22 @ 3:00 at [place]. Pt takes ELIQUIS- needs to be off 3 days prior and at least 7 days after surgery. Medical clearanceform faxed to Dr Dipak Aguilar, f.[phone] on 07/20/22. 1 week follow up with nurse on 08/12/22 @ 1:30. 2-[address] Issa on 08/17/22 @ 11:00. Pt given date, time, prep and arrival instructions in person on 07/20/22. Written info given also. Yoko MENDES documented in this encounterKettering Health Preble06-01-2023 Miscellaneous Notes* Telephone Encounter - Monica Vernon LPN - 07/22/2022 9:49 AM EDT T/C to pt, he is willing to come in tried but was told you are not available till way out. Explained both STORE ASSISTANT milan out and you are trying to see everyone. I got him in on Tuesday with Crystal Pradhan N.P. * Telephone Encounter - Dipak Aguilar DO - 07/21/2022 8:33 PM EDT Please clarify, I haven't seen him since Oct 2021, would need appt with provider for medical clearance Dipak Aguilar DO * Telephone Encounter - Monica Vernon LPN - 07/21/2022 11:22 AM EDT Patient has been identified by name and date of : Yes, Provider Dr. Aguilar Date 07/21/2022 Time 11:00 Type of form: medical clearance form Form received via: Fax When form is completed, fax form to fax number provided. Form has been forwarded to: Provider's desk. Provider name: Dr. Aguilar. Monica Vernon LPN documented in this encounterKettering Health [facility]ble05-30-2023 Instructions* Patient Instructions* Aj Issa MD - 07/20/2022 10:36 AM EDT INSTRUCTIONS FROM DR. ISSA: We will schedule the cystoscopy with the dilation and possible transurethral section prostate documented in this encounterKettering Health Preble05-30-2023 Procedure note* Aj Issa MD - 07/20/2022 10:24 AM EDTProcedure(s): CYSTOSCOPY Pre-Procedure Diagnose(s): Bladder neck contracture Post-Procedure Diagnose(s): Bladder neck contracture CYSTOSCOPY PROCEDURE NOTE: 05139-myoxe/fulg 14142-iscbu,bx 39845--mfgdl/complex 41228--tnknc 04326--atlecrtg cath 89848-kdldc/dilate BLADDER IRRIGATION, SIMPLE, LAVAG [[id number] Taz Johnson is a 87 year old male who presents for cystoscopy. Pt ID verified with patient: yes Procedure verified with patient: yes Procedure confirmed with physician and client technical support associate: yes Special equipment-cystoscope UNIVERSAL PROTOCOL / SAFETY [...] Plan of Care Visit completed when applicable. Aj Issa MD Antibiotic was-Bactrim The benefits, risks, alternatives of the cystoscopy procedure and personnel were discussed with thepatient. The verbal consent was obtained and the [...] verumontanum I can see just scar tissue furtherand prostate and could be just the bladder [...] and increase oral fluid intake as directed. Aj Issa MD See progress note for plans Aj Issa MD documented in this encounterKettering Health [facility]ble05-30-2023 History of Present illness Narrative* Aj Issa MD - 07/20/2022 10:11 AM EDT ESTABLISHED PATIENT OFFICE VISIT PATIENT INFO: Taz Johnson 87 year old HPI 07/20/2022 CC: cysto [...] shortness of breath We will schedule at [facility] Bladder scan/postvoid residual-80 cc approximate Past Urology Hx: 06/29/2022 CC: marcy Saw me last noted below and had laser TURP Did well afterwards but then having more trouble so underwent TURP in December 2021 in [place] and did well but over the last [...] are not tender. Urology Procedures: July 20, [id number]-tu urethral stricture but just inside verumontanum I [...] (no units) Date Value 10/21/2016 neg Specific Peggs, Ur (no units) Date Value 10/21/2016 1.025 [...] history of colon cancer Melanoma (HCC) 1990 [place] [facility] Nurse Persistent atrial fibrillation (HCC) 10/11/2019 Admitted 09/05/2019 [facility]. Followed by [facility]. FAMILY HISTORY Problem Relation Age [...] 1 tablet by mouth once daily.^Disp: 30 tablet^Rfl:11 omeprazole (PRILOSEC) 40 mg capsule^Take 1 capsule by mouth once daily.^Disp: 90 capsule^Rfl: 3 albuterol HFA (VENTOLIN HFA) 90 mcg/actuation inhaler^Inhale 2 Puffs as instructed every 4 hours asneeded for wheezing/shortness of breath. Also can use [...] breath activated (albuterol sulfate)^Inhale 1 Puff as instructedfour times daily as needed.^Disp: 1 Each^Rfl: 11 [...] possibility of blood loss, and transfusion and thefact that he may be admitted post operatively. I explained the post operative urgency, frequency, and dysuria. Risk of anesthesia complications, stroke, MN, etc.The patient expressed an understandingwith regard to possible complications and outcome. FOLLOW [...] neck stricture - ICD9: 596.89, ICD10: N32.0 [facility]-cystoscopy, pyelograms, urethral dilation/DVIU/possible TURP - SULFAMETHOXAZOLE 800 MG-TRIMETHOPRIM 160 MG TABLET - LIDOCAINE 2 % MUCOSAL JELLY IN APPLICATOR - CYSTO.VERONIQUE Issa Please note: This note has been produced using speech recognition software and may contain errors related to that system including grammar, punctuation, spelling, gender and words and phrases that may be inappropriate. documented in this encounterKettering Health [facility]ble05-11-2023 History of Present illness Narrative* MARIEL Cardona - 07/01/2022 7:20 AM EDT This note was created using Myxer. Subjective Taz Johnson is a 87 year old male. HPI 87-year-old male presents for right ear pain. Patient has been having right ear pain and swelling for the past week. He states the outside of his ear feels swollen. He has not been swimming or estephanie hot tub recently. He has had something like this similar in the past. No drainage from the ear. No difficulty hearing. No tinnitus. No cough, congestion or other URI symptoms. No fevers no other com plaints Review of Systems Constitutional: Negative for chills [...] erythematous. The external canal is slightly swollen aswell. TM appears intact. No TM erythema. No [...] ER evaluation. MARIEL Cardona documented in this encounterKettering Health [facility]ble05-09-2023 Instructions* Patient Instructions* Aj Issa MD - 06/29/2022 3:50 PM EDT [...] body). The doctor can use the scope tolook for bladder stones, tumors, bleeding, and sources [...] problems. Your doctor may be able to tellyou some of the results right after the [...] increased risk for developing an infection (a 2- 3% risk). Cystoscopy is usually done in the office with a local anesthetic that is instilled directly into your urethra. There is perhaps some temporary discomfort with urination after the test. documented in this encounterKettering Health [facility]ble05-09-2023 History of Present illness Narrative* Aj Issa MD - 06/29/2022 3:27 PM EDT ESTABLISHED PATIENT OFFICE VISIT PATIENT INFO: Taz Johnson 87 year old HPI 06/29/2022 CC: marcy Saw me last noted below and had laser TURP Did well afterwards but then having more trouble so underwent TURP in December 2021 in [place] and did well but over the last [...] (no units) Date Value 10/21/2016 neg Specific Peggs, Ur (no units) Date Value 10/21/2016 1.025 [...] history of colon cancer Melanoma (HCC) 1990 [place] [facility] Nurse Persistent atrial fibrillation (HCC) 10/11/2019 Admitted 09/05/2019 [facility]. Follow[facility] by [facility]. FAMILY HISTORY Problem Relation Age [...] 2 Puffs as instructed every 4 hours asneeded for wheezing/shortness of breath. Also can use [...] activated (albuterol sulfate) Inhale 1 Puff as instructedfour times daily as needed. multivitamin tablet Twice [...] did tell the patient about various alternatives andwhy cystoscopy was indicated in this particular circumstance. [...] bladder emptying - ICD9: 788.21, ICD10: R33.9 Aj Issa Please note: This note has been produced using speech recognition software and may contain errors related to that system including grammar, punctuation, spelling, gender and words and phrases that may be inappropriate. documented in this encounterK[facility]-07-[facility]22 Miscellaneous Notes* Telephone Encounter - Deisy Felipe RN - 12/28/2021 12:04 PM EST RN from [place] called about pt getting clearance for surgery. She is requesting for EKG, MAYUR from Dr. Mcintosh, Echo and stress test results. Advised RN to call medical records to obtain these documents at [phone] documented in this encounterK[facility]10-18-2022 History of Present illness Narrative* Korin Araiza APRN.TERMINAL COMPUTER OPERATOR - 12/08/2021 10:01 AM EDT Patient came in presenting with a sore on his middle upper chest. Patient says he has had 3 weeks. Patient says it does not seem to be getting better. Patient says he did try to open it up but nothing came out. Patient has a history of skin cancer lesions. Patient sees a back end web developer for this. Didattempt to call patient's dermatology office they were not sure they can get them in. Got an appointment tomorrow with Julian Robbins. Patient was okay with this and patient will follow-up tomorrow morning with Julian Robbins. documented in this encounterK[facility]10-17-2022 Miscellaneous Notes* Telephone Encounter - Heather Welch LPN - 12/07/2021 8:32 AM EDT Spoke with pt and information listed below given. Pt verbalizes understanding. Heather Welch LPN * Telephone Encounter - Monica Vernon LPN - 12/07/2021 8:22 AM EDT Left message to return call. * Telephone Encounter - Dipak Aguilar DO - 12/07/2021 7:57 AM EDT Please inform patient that his calcium levels are slighlty elevated and his serum creatinine are slightly elevated as well. Needs to increase fluids to at least 60-80 oz a day. His labs also show continued prediabetes levels at 6.2% a1c. Decrease sugars and starches in diet. Dipak Aguilar DO documented in this encounterKettering [facility]10-11-2022 History of Present illness Narrative* Arlin Yang LPN - 12/01/2021 2:15 PM EDT Patient presents for COVID booster. Denies any problems at this time. Tolerated injection well. Arlin Yang LPN documented in this encounterKettering [facility]09-26-2022 History of Past illness Narrative* Problem Noted Date Diagnosed Date Resolved Date Atrial fibrillation 11/16/2021 11/17/19 23 Atrial fibrillation, chronic 08/26/2020 11/12/2021 Persistent atrial fibrillation 10/11/2019 11/12/2021 Overview: Admitted 09/05/2019 [facility]. Followed by [facility]. Asthma with chronic obstruct steve pulmonary disease (COPD) 10/26/2018 09/12/2019 documented as of this encounter (statuses as of 11/19/2022) [facility] of Past illness Narrative* Problem Noted Date Diagnosed Date Resolved Date Atrial fibrillation 11/16/2021 11/17/19 23 Atrial fibrillation, chronic 08/26/2020 11/12/2021 Persistent atrial fibrillation 10/11/2019 11/12/2021 Overview: Admitted 09/05/2019 [facility]. Followed by [facility]. Asthma with chronic obstruct steve pulmonary disease (COPD) 10/26/2018 09/12/2019 documented as of this encounter (statuses as of 05/02/2023) [facility] of Past illness Narrative* Problem Noted Date Diagnosed Date Resolved Date Atrial fibrillation 11/16/2021 11/17/19 23 Atrial fibrillation, chronic 08/26/2020 11/12/2021 Persistent atrial fibrillation 10/11/2019 11/12/2021 Overview: Admitted 09/05/2019 [facility]. Followed by [facility]. Asthma with chronic obstruct steve pulmonary disease (COPD) 10/26/2018 09/12/2019 documented as of this encounter (statuses as of 05/18/2023) [facility] Miscellaneous Notes* Telephone Encounter - Lidia Danielson Pss - 10/05/2021 9:37 AM EDT Form has been scanned and faxed. Thank you * Telephone Encounter - Wes Mcintosh MD - 10/02/2021 5:28 PM EDT Done. * Telephone Encounter - Lizzie Bonds Ma - 09/30/2021 8:28 AM EDT Type of form: [place] urology specialist. (Asking about stopping Eliquis) Form received via fax When form is completed, Fax form to [phone] Form has been forwarded to Physician Desk: Dr. Dayna GALDAMEZ. Lizzie Bonds Ma documented in this encounterKettering [facility]06-17-2022 History of Present illness Narrative* Sara Gallardo Pss - 08/07/2021 9:43 AM EDT POPULATION HEALTH NAVIGATION OUTREACH Action/ Patient Outreach: [facility] Support - Pt has currently been [...] 07, 2021 9:43 AM documented in this encounterKettering Health [facility]ble08-23-2021 History of Present illness Narrative* Sara Arshad, RT(R) - 10/13/2020 9:50 AM EDT Radiology Service Progress Note PATIENT NAME: Taz Johnson DATE OF SERVICE: October 13, 2020 TIME: [...] 13, 2020 9:48 AM documented in this encounterKettering Health [facility]ble07-06-2021 History of Past illness Narrative* Problem Noted Date Resolved Date Atrial fibrillation, chronic 08/26/2020 Persistent atrial fibrillation 10/11/2019 0 11/12/2021 Overview: Admitted 09/05/2019 [facility]. Followed by [facility]. Asthma with chronic obstructive pulmonary diseas e (COPD) 10/26/2018 09/12/2019 documented as of this encounter (statuses as of 12/01/2021) [facility] of Past illness Narrative* Problem Noted Date Resolved Date Atrial fibrillation, chronic 08/26/2020 Persistent atrial fibrillation 10/11/2019 0 11/12/2021 Overview: Admitted 09/05/2019 [facility]. Followed by [facility]. Asthma with chronic obstructive pulmonary diseas e (COPD) 10/26/2018 09/12/2019 documented as of this encounter (statuses as of 12/07/2021) [facility] of Past illness Narrative* Problem Noted Date Resolved Date Atrial fibrillation, chronic 08/26/2020 Persistent atrial fibrillation 10/11/2019 0 11/12/2021 Overview: Admitted 09/05/2019 [facility]. Followed by [facility]. Asthma with chronic obstructive pulmonary diseas e (COPD) 10/26/2018 09/12/2019 documented as of this encounter (statuses as of 12/08/2021) [facility] of Past illness Narrative* Problem Noted Date Resolved Date Atrial fibrillation, chronic 08/26/2020 Persistent atrial fibrillation 10/11/2019 0 11/12/2021 Overview: Admitted 09/05/2019 [facility]. Followed by [facility]. Asthma with chronic obstructive pulmonary diseas e (COPD) 10/26/2018 09/12/2019 documented as of this encounter (statuses as of 12/28/2021) [facility] of Past illness Narrative* Problem Noted Date Resolved Date Atrial fibrillation, chronic 08/26/2020 Persistent atrial fibrillation 10/11/2019 0 11/12/2021 Overview: Admitted 09/05/2019 [facility]. Followed by [facility]. Asthma with chronic obstructive pulmonary diseas e (COPD) 10/26/2018 09/12/2019 documented as of this encounter (statuses as of 07/01/2022) [facility] of Past [facility] Narrative* Problem Noted Date Resolved Date Atrial fibrillation, chronic 08/26/2020 Persistent atrial fibrillation 10/11/2019 0 11/12/2021 Overview: Admitted 09/05/2019 [facility]. Followed by [facility]. Asthma with chronic obstructive pulmonary diseas e (COPD) 10/26/2018 09/12/2019 documented as of this encounter (statuses as of 07/01/2022) [facility] of Past illness Narrative* Problem Noted Date Resolved Date Atrial fibrillation, chronic 08/26/2020 09/ Persistent atrial fibrillation 10/11/2019 0 11/12/2021 Overview: Admitted 09/05/2019 [facility]. Followed by [facility]. Asthma with chronic obstructive pulmonary diseas e (COPD) 10/26/2018 09/12/2019 documented as of this encounter (statuses as of 07/22/2022) [facility] Narrative* Problem Noted Date Resolved Date Atrial fibrillation, chronic 08/26/2020 Persistent atrial fibrillation 10/11/2019 0 11/12/2021 Overview: Admitted 09/05/2019 [facility]. Followed by [facility]. Asthma with chronic obstructive pulmonary diseas e (COPD) 10/26/2018 09/12/2019 documented as of this encounter (statuses as of 07/22/2022) [facility] Narrative* Problem Noted Date Resolved Date Atrial fibrillation, chronic 08/26/2020 Persistent atrial fibrillation 10/11/2019 0 11/12/2021 Overview: Admitted 09/05/2019 [facility]. Followed by [facility]. Asthma with chronic obstructive pulmonary diseas e (COPD) 10/26/2018 09/12/2019 documented as of this encounter (statuses as of 07/26/2022) [facility] Narrative* Problem Noted Date Resolved Date Atrial fibrillation, chronic 08/26/2020 Persistent atrial fibrillation 10/11/2019 0 11/12/2021 Overview: Admitted 09/05/2019 [facility]. Followed by [facility]. Asthma with chronic obstructive pulmonary diseas e (COPD) 10/26/2018 09/12/2019 documented as of this encounter (statuses as of 08/05/2022) [facility] Narrative* Problem Noted Date Resolved Date Atrial fibrillation, chronic 08/26/2020 Persistent atrial fibrillation 10/11/2019 0 11/12/2021 Overview: Admitted 09/05/2019 [facility]. Followed by [facility]. Asthma with chronic obstructive pulmonary diseas e (COPD) 10/26/2018 09/12/2019 documented as of this encounter (statuses as of 08/09/2022) [facility] Narrative* Problem Noted Date Resolved Date Atrial fibrillation, chronic 08/26/2020 Persistent atrial fibrillation 10/11/2019 0 11/12/2021 Overview: Admitted 09/05/2019 [facility]. Followed by [facility]. Asthma with chronic obstructive pulmonary diseas e (COPD) 10/26/2018 09/12/2019 documented as of this encounter (statuses as of 08/19/2022) [facility] Narrative* Problem Noted Date Resolved Date Atrial fibrillation, chronic 08/26/2020 Persistent atrial fibrillation 10/11/2019 0 11/12/2021 Overview: Admitted 09/05/2019 [facility]. Followed by [facility]. Asthma with chronic obstructive pulmonary diseas e (COPD) 10/26/2018 09/12/2019 documented as of this encounter (statuses as of 08/20/2022) [facility] Narrative* Problem Noted Date Diagnosed Date Resolved Date Atrial fibrillation, chronic 08/26/2020 11/12/2021 Persistent atrial fibrillation 10/11/2019 11/12/2021 Overview: Admitted 09/05/2019 [facility]. Followed by [facility]. Asthma with chronic obstruct steve pulmonary disease (COPD) 10/26/2018 09/12/2019 documented as of this encounter (statuses as of 08/31/2022) [facility] Narrative* Problem Noted Date Diagnosed Date Resolved Date Atrial fibrillation, chronic 08/26/2020 11/12/2021 Persistent atrial fibrillation 10/11/2019 11/12/2021 Overview: Admitted 09/05/2019 [facility]. Followed by [facility]. Asthma with chronic obstruct steve pulmonary disease (COPD) 10/26/2018 09/12/2019 documented as of this encounter (statuses as of 09/30/2022) [facility] Narrative* Problem Noted Date Diagnosed Date Resolved Date Atrial fibrillation,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 inspiratory/expiratoryeffort and significant atelectasis initially: Will maintain on oxygen with wean as tolerated to room air, ATC ipratropium aerosols, PRN albuterol, maintained onIV Zosyn and IV Vanc as well as IV Azithromycin given concurrent presentation #1with MRSA screen requested w/ de-escalation as able, encourage HOB, IS parameters w/ pending sputum cultures, full respiratory viral panel and urine antigens. Bld cx x 2 obtained in the ED. #3. Recent mechanical fall on anticoagulant therapy: Patient per report from fell to the right side and not surprisingly on CT imaging demonstrated a nonacute right anterior lateral 6th through 9th rib fractures as well as old lateral left 10th rib fracture, holding anticoagulant therapy as noted, PT/OT/case management consulted for discharge planning. #4. PAF with RVR: Likely secondary to his acute illness #1, improved rate in the ED with ED IV labetalol and lopressor, will continue metoprolol as able, holding Eliquis given surgical intervention needs. Most recently noted echocardiogram 10/01/2023 with EF 70%, mildly enlarged LA, trivial MVI with repeat echo requested. #5. Chronic Kidney Disease Stage III, unclear subtype or GFR trending: Admission BUN/Cr 20/1.27, GFR 54, baseline renal function primarily more recently noted 1.2-1.6, most recently 10/01/2023 which is unfortunately remote noted to be 1.47, repeat CMP in a.m. to further elucidate what patient's level is currently. #6. Incidentally noted left thyroid nodule: CT of the chest with incidentally noted left thyroid nodule up to 1.7 cm, TSH and free T4 requested, will need outpatient follow-up thyroid ultrasound. #7. 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 #8. Diabetes mellitus type II: Hold oral home regimen, n.p.o. status given presentation as noted, maintain on every 6 hours accu checks w/ ISS. #9. Hypertension: Given current presentation with PAF with RVR and usage of IV beta-mattie therapies in the ED BP now low, will temporarily hold diuretic therapy especially given presentation as noted #1 and focus on continuing beta-mattie therapy only as able, will add back other regimen as able. #10. Hyperlipidemia: Will continue patient home statin therapy. #11. Hx CVA w/ associated memory impairment: Temporarily holding Eliquis as noted, continue statin, continue metoprolol primarily, holding other regimen given lower BP following beta-mattie therapy administration in the ED, add backonce clinically appropriate. PT/OT consulted as noted. #12. Former tobacco use: Encouraged continued tobacco cessation. #13. BPH: From records noted status post TURP status, not on any chronic regimen, monitor for retention. #14. GERD: Will maintain on IV PPI. #15. DVT prophylaxis: SCDs, holding Eliquis given need for intervention. #16. CODE status: Patient [place] is his who is present and living will is currently in place. Discussed CODE status at length including difference betweenFULL code, DNR-CCA and DNR-CC status. Following discussions about the differences in these status, requested full code. Advanced Care Planning Face toFace Time: 16 minutes. Sepsis Attestation Sepsis Alert: Yes Sepsis Attestation: Agree w/Sepsis Date exam was performed: 10/26/24 Time exam was performed: 18:37 Possible Source of Sepsis: Pulmonary and GI tract/intra-abdominal Sepsis Organ Dysfunction Criteria Present: Lactic Acid > 2 mmol/L and None (source x 2 as noted, tachycardia, tachypnea, hypoxia, lactic acidosis, leukocytosis) Fluid Resuscitation Fluid resuscitation indicated?: Yes Fluid Resuscitation ordered: Lesser volume fluid bolus ordered Amount of fluid ordered: 1,000 Reason for lesser fluid bolus:: Concern for fluid overload and Other (Additional1 L ordered upon admission per Hospitalist.) Charges/Coding Visit Charges Inpatient E&M: 27360 Init Hosp L3 Procedures Hospitalists Procedures: 74511 Advncd Care Plan 30 Min 10/27/24 0010 <Electronically signed by Fernanda Triplett MD> Cosigner Signature (if applicable): CC: Dr. Fernanda Triplett MD; Dr. Dipak Aguilar, DO~ Signed [facility] Work Phone: Hospital Discharge instructionsAdditional Instructions 1. Please get an appointment within the next 2 weeks to follow-up with your urologist at [facility] Main [facility] Date [facility]: [facility] Work Phone: Reason for referral (narrative)* Outpatient Procedure (Routine) - Closed Specialty Diagnoses / Procedures Referred By Contac t Referred To Contact [facility] Diagnoses Preoperative clearance Procedures ECG COMPLETE ECG ROUTINE ECG W/LEAST 12 LDS W/I&R Crystal Pradhan APRN.CNP [address] [place] [address] [place] [address] Referral ID Status Reason Start Date Expiration Date V isits Requested Visits Authorized [id number] Closed Auto-Generate d Referral 07/26/2022 07/26/2023 1 1 [facility] for referral (narrative)* Diagnostic Procedure Only (Routine) - Authorized Specialty Diagnoses / Procedures Referred By Contac t Referred To Contact [facility]ULAR [facility] Diagnoses Shortness of breath Procedures NM CARDIAC PERF STRESS/EXERCISE MYOCARDIAL SPECT MULTIPLE STUDIES Analisa Nicole MD [address], [address] [place] [address] Fax: Molecular [facility] Functional Imaging [address] [place] [address] Referral ID Status Reason Start Date Expiration Date Visits Requested Visits Authorized [id number] Authorized Auto-Generat ed Referral 09/26/2023 10/11/2024 1 1 * Outpatient Procedure (Routine) - Authorized Specialty Diagnoses / Procedures Referred By Contac t Referred To Contact [facility] [place] Diagnoses Shortness of breath Procedures ECHO ECHO TTHRC R-T 2D W/WOM-MODE COMPL SPEC&COLR D Analisa Nicole MD [address], [address] [place] [address] [facility] [place] [address] [place] [id number] Referral ID Status Reason Start Date Expiration Date Visits Requested Visits Authorized [id number] Authorized Auto-Generat ed Referral 09/26/2023 09/11/2024 1 1 * Outpatient Procedure (Routine) - New Request Specialty Diagnoses / Procedures Referred By Contac t Referred To Contact [facility] [place] Diagnoses Screening for ischemic heart disease Procedures ECG COMPLETE ECG ROUTINE ECG W/LEAST 12 LDS W/I&R Analisa Nicole MD [address], [address] [place] [address] Fax: [facility] [place] [address] [place] [address] Referral ID Status Reason Start Date Expiration Date Visits Requested Visits Authorized [id number] New Request Auto-Generat ed Referral 09/12/2023 09/07/2024 1 1 [facility] for referral (narrative)* Diagnostic Procedure Only (Routine) - New Request Specialty Diagnoses / Procedures Referred By Contac t Referred To Contact XR IMAGING Diagnoses Bilateral hip pain Procedures XR HIP BILATERAL 5V PEL/AP/LAT EACH HIP RADEX HIPS BILATERAL WITH PELVIS MINIMUM 5 VIEWS Jeffrey Hdz MD [address] [place] [address] [place] [address] Referral ID Status Reason Start Date Expiration Date Visits Requested Visits Authorized [id number] New Request Auto-Generat ed Referral 11/10/2023 12/09/2024 1 1 * Diagnostic Procedure Only (Routine) - New Request Specialty Diagnoses / Procedures Referred By Contac t Referred To Contact XR IMAGING Diagnoses Bilateral hip pain Procedures XR KNEE GENERAL 4V AP BOTH/PA BOTH/LAT/MERC RIGHT RADIOLOGIC EXAM KNEE COMPLETE 4/MORE VIEWS Jeffrey Hdz MD [address] [place] [address] [place] [address] Referral ID Status Reason Start Date Expiration Date Visits Requested Visits Authorized [id number] New Request Auto-Generat ed Referral 11/10/2023 12/09/2024 1 1 [facility] for referral (narrative)* Diagnostic Procedure Only (Routine) - Closed Specialty Diagnoses / Procedures Referred By Contac t Referred To Contact XR IMAGING Diagnoses Bilateral hip pain Procedures XR LUMBAR LIMITED 2V AP/LAT RADEX SPINE LUMBOSACRAL 2/3 VIEWS Jeffrey Hdz MD [address] [place] [address] [place] [address] Referral ID Status Reason Start Date Expiration Date V isits Requested Visits Authorized [id number] Closed Auto-Generate d Referral 11/23/2023 12/22/2024 1 1 * Diagnostic Procedure Only (Routine) - Closed Specialty Diagnoses / Procedures Referred By Contac t Referred To Contact XR IMAGING Diagnoses Bilateral hip pain Procedures XR HIP BILATERAL 5V PEL/AP/LAT EACH HIP RADEX HIPS BILATERAL WITH PELVIS MINIMUM 5 VIEWS Jeffrey Hdz MD [address] [place] [address] [place] [address] Referral ID Status Reason Start Date Expiration Date V isits Requested Visits Authorized [id number] Closed Auto-Generate d Referral 11/10/2023 12/09/2024 1 1 * Diagnostic Procedure Only (Routine) - Closed Specialty Diagnoses / Procedures Referred By Contac t Referred To Contact XR IMAGING Diagnoses Bilateral hip pain Procedures XR KNEE GENERAL 4V AP BOTH/PA BOTH/LAT/MERC RIGHT RADIOLOGIC EXAM KNEE COMPLETE 4/MORE VIEWS Jeffrey Hdz MD [address] [place] [address] [place] [address] Referral ID Status Reason Start Date Expiration Date V isits Requested Visits Authorized [id number] Closed Auto-Generate d Referral 11/10/2023 12/09/2024 1 1 [facility] for referral (narrative)* Diagnostic Procedure Only (Urgent) - Closed Specialty Diagnoses / Procedures Referred By Contac t Referred To Contact XR IMAGING Diagnoses Knee injury, right, initial encounter Procedures XR KNEE GENERAL 4V AP BOTH/PA BOTH/LAT/MERC RT KNEE AP-WGT/LAT/MERCHANT Wes Chavez, NEHA.TERMINAL COMPUTER OPERATOR [address] [place] [address] [place] [address] Referral ID Status Reason Start Date Expiration Date V isits Requested Visits Authorized [id number] Closed Auto-Generate d Referral 10/13/2020 11/12/2021 1 1 [facility] for referral (narrative)* Outpatient Procedure (Routine) - Authorized Specialty Diagnoses / Procedures Referred By Contac t Referred To Contact [facility] Diagnoses Wheezing Asthma-COPD overlap syndrome (HCC) SOB (shortness of breath) on exertion Decreased activity tolerance Productive cough Procedures LUNG VOLUMES Elisa Garcia APRN.TERMINAL COMPUTER OPERATOR [address] [place] [address] [place] [address] Referral ID Status Reason Start Date Expiration Date Visits Requested Visits Authorized [id number] Authorized Auto-Generat ed Referral 11/29/2023 12/28/2024 1 1 * Outpatient Procedure (Routine) - Authorized Specialty Diagnoses / Procedures Referred By Enrrique toussaint Referred To Contact [facility] Diagnoses Wheezing Asthma-COPD overlap syndrome (HCC) SOB (shortness of breath) on exertion Decreased activity tolerance Productive cough Procedures SPIROMETRY - BASELINE AND POST DILATOR BRNCDILAT RSPSE SPMTRY PRE&POST-BRNCDILAT ADMN Elisa Garcia APRN.TERMINAL COMPUTER OPERATOR [address] [place] [address] [facility] [place] [address] [place] [address] Referral ID Status Reason Start Date Expiration Date Visits Requested Visits Authorized [id number] Authorized Auto-Generat ed Referral 11/29/2023 12/28/2024 1 1 * MRI/CT (Routine) - Authorized Specialty Diagnoses / Procedures Referred By Enrrique toussaint Referred To Contact CT IMAGING Diagnoses Wheezing Asthma-COPD overlap syndrome (HCC) SOB (shortness of breath) on exertion Decreased activity tolerance Productive cough Procedures CT CHEST WO IVCON DIAGNOSTIC COMPUTED TOMOGRAPHY THORAX W/O CNTRST Elisa Garcia APRN.TERMINAL COMPUTER OPERATOR [address] [place] [address] [facility] Referral ID Status Reason Start Date Expiration Date Visits Requested Visits Authorized [id number] Authorized Auto-Generat ed Referral 11/29/2023 12/28/2024 1 1 [facility] for referral (narrative)No reason for referral information [facility] Phone: Reason for visit Narrative* Diagnostic Procedure Only (Routine) - Closed Specialty Diagnoses / Procedures Referred By Contac t Referred To Contact XR IMAGING Diagnoses Bilateral hip pain Procedures XR KNEE GENERAL 4V AP BOTH/PA BOTH/LAT/MERC RIGHT RADIOLOGIC EXAM KNEE COMPLETE 4/MORE VIEWS Jeffrey Hdz MD [address] [place] [address] [place] [address] Referral ID Status Reason Start Date Expiration Date V isits Requested Visits Authorized [id number] Closed Auto-Generate d Referral 11/10/2023 12/09/2024 1 1 [facility] for visit Narrative* Diagnostic Procedure Only (Urgent) - Closed Specialty Diagnoses / Procedures Referred By Contac t Referred To Contact XR IMAGING Diagnoses Knee injury, right, initial encounter Procedures XR KNEE GENERAL 4V AP BOTH/PA BOTH/LAT/MERC RT KNEE AP-WGT/LAT/MERCHANT Wes Chavez, ADVERTISING COPYWRITER.TERMINAL COMPUTER OPERATOR [address] [place] [address] [place] [address] Referral ID Status Reason Start Date Expiration Date V isits Requested Visits Authorized [id number] Closed Auto-Generate d Referral 10/13/2020 11/12/2021 1 1 [facility] for visit Narrative* Diagnostic Procedure Only (Routine) - Closed Specialty Diagnoses / Procedures Referred By Contac t Referred To Contact [facility] Diagnoses Shortness of breath Procedures NM CARDIAC PERF STRESS/EXERCISE MYOCARDIAL SPECT MULTIPLE STUDIES Analisa Nicole MD [address] [facility], [address] [place] [address] Molecular & Functional Imaging [address] [place] [address] Referral ID Status Reason Start Date Expiration Date V isits Requested Visits Authorized [id number] Closed Auto-Generate d Referral 09/26/2023 10/11/2024 1 1 [facility] for visit Narrative* Diagnostic Procedure Only (Routine) - Closed Specialty Diagnoses / Procedures Referred By Enrrique t Referred To Contact US IMAGING Diagnoses Hospital discharge follow-up Bilateral leg edema Procedures US DVT LOWER BILATERAL DUP-SCAN XTR VEINS COMPLETE BILATERAL STUDY Radha Berman, ADVERTISING COPYWRITER.TERMINAL COMPUTER OPERATOR [address] [place] [address] Phone: tel: fax: [place] [address] Referral ID Status Reason Start Date Expiration Date V isits Requested Visits Authorized [id number] Closed Auto-Generate d Referral 05/16/2024 06/15/2025 1 1 [facility] Summary Purpose Family History Relationship Condition Age at Onset Recorded Date/T rahul mother Malignant neoplasm of breast Unknown father Malignant neoplasm of colon Unknown Malignant melanoma Unknown brother Chronic obstructive pulmonary disease Unk nown grandfather Multiple myeloma Unknown Advance Directives Documents on File Type Date Recorded Patient 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 Yes September 11, 2024 10:22am Documents on File Type Date Recorded Patient College Coach Expl anation Advance Directive(s) 09/27/2024 5:29 PM Advance Directive(s) 09/26/2024 8:52 AM Advance Directive Response Recorded Date/ Time Do you have a Healthcare Power of C2 Tactical Analysis Technician? Yes September 11, 2024 10:22am Do you have a Healthcare Power of C2 Tactical Analysis Technician? Yes October 14, 2024 7:42am Name of Medical Power of C2 Tactical Analysis Technician [facility] October 14, 2024 7:42am Advance Directive Response Recorded Date/ Time Do you have a Healthcare Power of C2 Tactical Analysis Technician? Yes September 11, 2024 10:22am Do you have a Healthcare Power of C2 Tactical Analysis Technician? Yes October 14, 2024 7:42am Name of Medical Power of C2 Tactical Analysis Technician [facility] October 14, 2024 7:42am Do you have a Healthcare Power of C2 Tactical Analysis Technician? Yes October 26, 2024 6:18pm Advance Directive Response Recorded Date/ Time Do you have a Healthcare Pow er of C2 Tactical Analysis Technician? Yes September 11, 2024 10:22am Do you have a Healthcare Pow er of C2 Tactical Analysis Technician? Yes October 14, 2024 7:42am Name of Medical Power of C2 Tactical Analysis Technician Anika Johnson October 14, 2024 7:42am Do you have a Healthcare Pow er of C2 Tactical Analysis Technician? Yes October 27, 2024 12:42am Medications Administered Section Inactive Administered Medications - [...] 1100, Prior to UDS Procedure Given by [facility] 10/19/2022 11:49 AM EDT 6 mL Other [...] without esophagitis Procedures CONSULT TO GASTROENTEROLOGY OFFICE/OUTPATIENT [facility] 60-74 MINUTES Radha Berman APRN.TERMINAL COMPUTER OPERATOR [address] [place] [address] Referral ID Status Reason Start Date Expiration Date Visits Requested Visits Authorized [id number] Pending Review PCP Requested Referral 10/14/2022 10/14/2023 1 1 Specialty Diagnoses / Procedures Referred By Contac t Referred To Contact [facility] [place] Diagnoses Lumbar spondylosis Procedures CONSULT TO [facility] OFFICE/OUTPATIENT [facility] 60 MINUTES Jeffrey Hdz MD [address] [place] [address] Referral ID Status Reason Start Date Expiration Date Visits Requested Visits Authorized [id number] Authorized PCP Requested Referral 11/23/2023 11/22/2024 1 1 Specialty Diagnoses / Procedures Referred By Contac t Referred To Contact XR IMAGING Diagnoses Bilateral hip pain Procedures XR LUMBAR LIMITED 2V AP/LAT RADEX SPINE LUMBOSACRAL 2/3 VIEWS Jeffrey Hdz MD [address] [place] [address] [place] [address] Referral ID Status Reason Start Date Expiration Date V isits Requested Visits Authorized [id number] Closed Auto-Generate d Referral 11/23/2023 12/22/2024 1 1 Specialty Diagnoses / Procedures Referred By Contac t Referred To Contact Pulmonary Disease Diagnoses Lung nodule Procedures CONSULT TO LUNG NODULE CLINIC OFFICE/OUTPATIENT [facility] 60 MINUTES Elisa Garcia, ADVERTISING COPYWRITER.TERMINAL COMPUTER OPERATOR [address] [place] [address] Referral ID Status Reason Start Date Expiration Date Visits Requested Visits Authorized [id number] Authorized PCP Requested Referral 12/12/2024 1 1 Chief Complaint and Reason for Visit Chief Complaint Admit Date fallSeptember 11, 2024 10:1 3am Chief Complaint Admit Date fallSeptember 11, 2024 10:1 3am HTN October 14, 2024 7: 29am Chief Complaint Admit Date fallSeptember 11, 2024 10:1 3am HTN October 14, 2024 7: 29am SEPSIS, ACUTE CHOLECYSTITIS October 10:50pm Reason for Visit Admit Date Acute cholecystitis October 26, 2024 10:50pm Atrial fibrillation with RVR October 262024 10:50pm Essential hypertension October 26 10:50pm Lactic acidosis October 26, 2024 10:50pm Sepsis October 26, 2024 10:50pm Chief Complaint Admit Date fallSeptember 11, 2024 10:1 3am HTN October 14, 2024 7: 29am SEPSIS, ACUTE CHOLECYSTITIS October 10:50pm SEPSIS, ACUTE CHOLECYSTITIS October 7:33am SEPSIS, ACUTE CHOLECYSTITIS October 2:54pm SEPSIS, ACUTE CHOLECYSTITIS October 8:24am SEPSIS, ACUTE CHOLECYSTITIS October 1:35pm SEPSIS, ACUTE CHOLECYSTITIS October 9:22am SEPSIS, ACUTE CHOLECYSTITIS October 9:52am SEPSIS, ACUTE CHOLECYSTITIS October 7:09am SEPSIS, ACUTE CHOLECYSTITIS October 7:36am SEPSIS, ACUTE CHOLECYSTITIS October 8:45am SEPSIS, ACUTE CHOLECYSTITIS October 9:42am SEPSIS, ACUTE CHOLECYSTITIS October 312024 7:31am SEPSIS, ACUTE CHOLECYSTITIS October 312024 8:23am SEPSIS, ACUTE CHOLECYSTITIS October 312024 9:04am SEPSIS, ACUTE CHOLECYSTITIS October 312024 2:48pm SEPSIS, ACUTE CHOLECYSTITIS November 012024 7:47am SEPSIS, ACUTE CHOLECYSTITIS November 012024 7:58am SEPSIS, ACUTE CHOLECYSTITIS November 022024 7:34am SEPSIS, ACUTE CHOLECYSTITIS November 032024 7:21am SEPSIS, ACUTE CHOLECYSTITIS November 042024 1:05pm SEPSIS, ACUTE CHOLECYSTITIS November 052024 10:39am SEPSIS, ACUTE CHOLECYSTITIS November 062024 7:10am SEPSIS, ACUTE CHOLECYSTITIS November 062024 9:30am Reason for Visit Admit Date Acute cholecystitis October 26, 2024 10:50pm Anticoagulant long-term use October 10:50pm Atrial fibrillation with RVR October 262024 10:50pm Dyspnea on exertion October 26, 2024 10:50pm Elevated blood pressure read ing with diagnosis of hypertension October 26, 2024 10:50pm Essential hypertension October 26 10:50pm Lactic acidosis October 26, 2024 10:50pm Palliative care encounter October 26, 2024 10:50pm Sepsis October 26, 2024 10:50pm Chronic a-fib October 26, 2024 10:50pm Additional Source Comments (unrecognized sect ion and content) No Status Records FoundNo Status Records FoundNo Status Records FoundNo Status Records FoundNo Status Records FoundNo Status Records Found INFORMATION SOURCE (unrecogn ized section and content) DATE CREATED AUTHOR 11/28/2017 [facility] DATE CREATED AUTHOR AUTHOR'S ORGANIZ ATION 10/03/[address] [facility] DATE CREATED AUTHOR AUTHOR'S ORGANIZ ATION 11/26/2023 [facility] DATE CREATED AUTHOR AUTHOR'S ORGANIZ ATION 01/26/2024 [facility] DATE CREATED AUTHOR AUTHOR'S ORGANIZ ATION 10/13/2024 [facility] DATE CREATED AUTHOR AUTHOR'S ORGANIZ ATION 11/05/2024 [facility] Source Comments (unrecognize d section and content) In the event this informatio n is protected by the Federal Confidentiality of Alcohol and Drug Abuse Patient Records regulations: The Federal rules restrict any use of the information to criminally investigate or prosecute any alcohol or drug abuse patient.[facility] the event this information is protected by the Federal Confidentiality of Alcohol and Drug Abuse Patient Records regulations: The Federal rules restrict any use of the information to criminally investigate or prosecute any alcohol or drug abuse patient.[facility]ble[facility] the event this information is protected by the Federal Confidentiality of Alcohol and Drug Abuse Patient Records regulations: The Federal rules restrict any use of the information to criminally investigate or prosecute any alcohol or drug abuse patient.[facility]ble[facility] the event this information is protected by the Federal Confidentiality of Alcohol and Drug Abuse Patient Records regulations: The Federal rules restrict any use of the information to criminally investigate or prosecute any alcohol or drug abuse patient.[facility]bleIn the event this information is protected by the Federal Confidentiality of Alcohol and Drug Abuse Patient Records regulations: The Federal rules restrict any use of the information to criminally investigate or prosecute any alcohol or drug abuse patient.[facility]ble[facility] the event this information is protected by the Federal Confidentiality of Alcohol and Drug Abuse Patient Records regulations: The Federal rules restrict any use of the information to criminally investigate or prosecute any alcohol or drug abuse patient.[facility]ble[facility] the event this information is protected by the Federal Confidentiality of Alcohol and Drug Abuse Patient Records regulations: The Federal rules restrict any use of the information to criminally investigate or prosecute any alcohol or drug abuse patient.[facility]ble[facility] the event this information is protected by the Federal Confidentiality of Alcohol and Drug Abuse Patient Records regulations: The Federal rules restrict any use of the information to criminally investigate or prosecute any alcohol or drug abuse patient.[facility]ble[facility] the event this information is protected by the Federal Confidentiality of Alcohol and Drug Abuse Patient Records regulations: The Federal rules restrict any use of the information to criminally investigate or prosecute any alcohol or drug abuse patient.[facility]ble[facility] the event this information is protected by the Federal Confidentiality of Alcohol and Drug Abuse Patient Records regulations: The Federal rules restrict any use of the information to criminally investigate or prosecute any alcohol or drug abuse patient.[facility]ble[facility] the event this information is protected by the Federal Confidentiality of Alcohol and Drug Abuse Patient Records regulations: The Federal rules restrict any use of the information to criminally investigate or prosecute any alcohol or drug abuse patient.[facility]ble[facility] the event this information is protected by the Federal Confidentiality of Alcohol and Drug Abuse Patient Records regulations: The Federal rules restrict any use of the information to criminally investigate or prosecute any alcohol or drug abuse patient.[facility]bleIn the event this information is protected by the Federal Confidentiality of Alcohol and Drug Abuse Patient Records regulations: The Federal rules restrict any use of the information to criminally investigate or prosecute any alcohol or drug abuse patient.[facility]ble[facility] the event this information is protected by the Federal Confidentiality of Alcohol and Drug Abuse Patient Records regulations: The Federal rules restrict any use of the information to criminally investigate or prosecute any alcohol or drug abuse patient.[facility]ble[facility] the event this information is protected by the Federal Confidentiality of Alcohol and Drug Abuse Patient Records regulations: The Federal rules restrict any use of the information to criminally investigate or prosecute any alcohol or drug abuse patient.[facility]ble[facility] the event this information is protected by the Federal Confidentiality of Alcohol and Drug Abuse Patient Records regulations: The Federal rules restrict any use of the information to criminally investigate or prosecute any alcohol or drug abuse patient.[facility]bleIn the event this information is protected by the Federal Confidentiality of Alcohol and Drug Abuse Patient Records regulations: The Federal rules restrict any use of the information to criminally investigate or prosecute any alcohol or drug abuse patient.[facility]bleIn the event this information is protected by the Federal Confidentiality of Alcohol and Drug Abuse Patient Records regulations: The Federal rules restrict any use of the information to criminally investigate or prosecute any alcohol or drug abuse patient.[facility]bleIn the event this information is protected by the Federal Confidentiality of Alcohol and Drug Abuse Patient Records regulations: The Federal rules restrict any use of the information to criminally investigate or prosecute any alcohol or drug abuse patient.[facility]bleIn the event this information is protected by the Federal Confidentiality of Alcohol and Drug Abuse Patient Records regulations: The Federal rules restrict any use of the information to criminally investigate or prosecute any alcohol or drug abuse patient.[facility]bleIn the event this information is protected by the Federal Confidentiality of Alcohol and Drug Abuse Patient Records regulations: The Federal rules restrict any use of the information to criminally investigate or prosecute any alcohol or drug abuse patient.[facility]bleIn the event this information is protected by the Federal Confidentiality of Alcohol and Drug Abuse Patient Records regulations: The Federal rules restrict any use of the information to criminally investigate or prosecute any alcohol or drug abuse patient.[facility]bleIn the event this information is protected by the Federal Confidentiality of Alcohol and Drug Abuse Patient Records regulations: The Federal rules restrict any use of the information to criminally investigate or prosecute any alcohol or drug abuse patient.[facility]bleIn the event this information is protected by the Federal Confidentiality of Alcohol and Drug Abuse Patient Records regulations: The Federal rules restrict any use of the information to criminally investigate or prosecute any alcohol or drug abuse patient.[facility]bleIn the event this information is protected by the Federal Confidentiality of Alcohol and Drug Abuse Patient Records regulations: The Federal rules restrict any use of the information to criminally investigate or prosecute any alcohol or drug abuse patient.[facility]bleIn the event this information is protected by the Federal Confidentiality of Alcohol and Drug Abuse Patient Records regulations: The Federal rules restrict any use of the information to criminally investigate or prosecute any alcohol or drug abuse patient.[facility]bleIn the event this information is protected by the Federal Confidentiality of Alcohol and Drug Abuse Patient Records regulations: The Federal rules restrict any use of the information to criminally investigate or prosecute any alcohol or drug abuse patient.[facility]bleIn the event this information is protected by the Federal Confidentiality of Alcohol and Drug Abuse Patient Records regulations: The Federal rules restrict any use of the information to criminally investigate or prosecute any alcohol or drug abuse patient.[facility]bleIn the event this information is protected by the Federal Confidentiality of Alcohol and Drug Abuse Patient Records regulations: The Federal rules restrict any use of the information to criminally investigate or prosecute any alcohol or drug abuse patient.[facility]bleIn the event this information is protected by the Federal Confidentiality of Alcohol and Drug Abuse Patient Records regulations: The Federal rules restrict any use of the information to criminally investigate or prosecute any alcohol or drug abuse patient.[facility]bleIn the event this information is protected by the Federal Confidentiality of Alcohol and Drug Abuse Patient Records regulations: The Federal rules restrict any use of the information to criminally investigate or prosecute any alcohol or drug abuse patient.[facility]bleIn the event this information is protected by the Federal Confidentiality of Alcohol and Drug Abuse Patient Records regulations: The Federal rules restrict any use of the information to criminally investigate or prosecute any alcohol or drug abuse patient.[facility]bleIn the event this information is protected by the Federal Confidentiality of Alcohol and Drug Abuse Patient Records regulations: The Federal rules restrict any use of the information to criminally investigate or prosecute any alcohol or drug abuse patient.[facility]bleIn the event this information is protected by the Federal Confidentiality of Alcohol and Drug Abuse Patient Records regulations: The Federal rules restrict any use of the information to criminally investigate or prosecute any alcohol or drug abuse patient.[facility]bleIn the event this information is protected by the Federal Confidentiality of Alcohol and Drug Abuse Patient Records regulations: The Federal rules restrict any use of the information to criminally investigate or prosecute any alcohol or drug abuse patient.[facility]bleIn the event this information is protected by the Federal Confidentiality of Alcohol and Drug Abuse Patient Records regulations: The Federal rules restrict any use of the information to criminally investigate or prosecute any alcohol or drug abuse patient.[facility]bleIn the event this information is protected by the Federal Confidentiality of Alcohol and Drug Abuse Patient Records regulations: The Federal rules restrict any use of the information to criminally investigate or prosecute any alcohol or drug abuse patient.[facility]bleIn the event this information is protected by [...] or prosecute any alcohol or drug abuse patient.[facility]bleIn the event this information is protected by the Federal Confidentiality of Alcohol and Drug Abuse Patient Records regulations: The Federal rules restrict any use of the information to criminally investigate or prosecute any alcohol or drug abuse patient.[facility]bleIn the event this information is protected by the Federal Confidentiality of Alcohol and Drug Abuse Patient Records regulations: The Federal rules restrict any use of the information to criminally investigate or prosecute any alcohol or drug abuse patient.[facility]bleIn the event this information is protected by the Federal Confidentiality of Alcohol and Drug Abuse Patient Records regulations: The Federal rules restrict any use of the information to criminally investigate or prosecute any alcohol or drug abuse patient.[facility]bleIn the event this information is protected by the Federal Confidentiality of Alcohol and Drug Abuse Patient Records regulations: The Federal rules restrict any use of the information to criminally investigate or prosecute any alcohol or drug abuse patient.[facility]bleIn the event this information is protected by the Federal Confidentiality of Alcohol and Drug Abuse Patient Records regulations: The Federal rules restrict any use of the information to criminally investigate or prosecute any alcohol or drug abuse patient.[facility] PrebleIn the event this information is protected by the Federal Confidentiality of Alcohol and Drug Abuse Patient Records regulations: The Federal rules restrict any use of the information to criminally investigate or prosecute any alcohol or drug abuse patient.[facility] PrebleIn the event this information is protected by the Federal Confidentiality of Alcohol and Drug Abuse Patient Records regulations: The Federal rules restrict any use of the information to criminally investigate or prosecute any alcohol or drug abuse patient.[facility] PrebleIn the event this information is protected by the Federal Confidentiality of Alcohol and Drug Abuse Patient Records regulations: The Federal rules restrict any use of the information to criminally investigate or prosecute any alcohol or drug abuse patient.[facility] PrebleIn the event this information is protected by the Federal Confidentiality of Alcohol and Drug Abuse Patient Records regulations: The Federal rules restrict any use of the information to criminally investigate or prosecute any alcohol or drug abuse patient.[facility]bleIn the event this information is protected by the Federal Confidentiality of Alcohol and Drug Abuse Patient Records regulations: The Federal rules restrict any use of the information to criminally investigate or prosecute any alcohol or drug abuse patient.[facility] PrebleIn the event this information is protected by the Federal Confidentiality of Alcohol and Drug Abuse Patient Records regulations: The Federal rules restrict any use of the information to criminally investigate or prosecute any alcohol or drug abuse patient.[facility] PrebleIn the event this information is protected by the Federal Confidentiality of Alcohol and Drug Abuse Patient Records regulations: The Federal rules restrict any use of the information to criminally investigate or prosecute any alcohol or drug abuse patient.[facility]bleIn the event this information is protected by the Federal Confidentiality of Alcohol and Drug Abuse Patient Records regulations: The Federal rules restrict any use of the information to criminally investigate or prosecute any alcohol or drug abuse patient.[facility]bleIn the event this information is protected by the Federal Confidentiality of Alcohol and Drug Abuse Patient Records regulations: The Federal rules restrict any use of the information to criminally investigate or prosecute any alcohol or drug abuse patient.[facility]bleIn the event this information is protected by the Federal Confidentiality of Alcohol and Drug Abuse Patient Records regulations: The Federal rules restrict any use of the information to criminally investigate or prosecute any alcohol or drug abuse patient.[facility]bleIn the event this information is protected by the Federal Confidentiality of Alcohol and Drug Abuse Patient Records regulations: The Federal rules restrict any use of the information to criminally investigate or prosecute any alcohol or drug abuse patient.[facility]bleIn the event this information is protected by the Federal Confidentiality of Alcohol and Drug Abuse Patient Records regulations: The Federal rules restrict any use of the information to criminally investigate or prosecute any alcohol or drug abuse patient.[facility]bleIn the event this information is protected by the Federal Confidentiality of Alcohol and Drug Abuse Patient Records regulations: The Federal rules restrict any use of the information to criminally investigate or prosecute any alcohol or drug abuse patient.[facility]bleIn the event this information is protected by the Federal Confidentiality of Alcohol and Drug Abuse Patient Records regulations: The Federal rules restrict any use of the information to criminally investigate or prosecute any alcohol or drug abuse patient.[facility]bleIn the event this information is protected by the Federal Confidentiality of Alcohol and Drug Abuse Patient Records regulations: The Federal rules restrict any use of the information to criminally investigate or prosecute any alcohol or drug abuse patient.[facility]bleIn the event this information is protected by the Federal Confidentiality of Alcohol and Drug Abuse Patient Records regulations: The Federal rules restrict any use of the information to criminally investigate or prosecute any alcohol or drug abuse patient.[facility]bleIn the event this information is protected by the Federal Confidentiality of Alcohol and Drug Abuse Patient Records regulations: The Federal rules restrict any use of the information to criminally investigate or prosecute any alcohol or drug abuse patient.[facility]bleIn the event this information is protected by the Federal Confidentiality of Alcohol and Drug Abuse Patient Records regulations: The Federal rules restrict any use of the information to criminally investigate or prosecute any alcohol or drug abuse patient.[facility]bleIn the event this information is protected by the Federal Confidentiality of Alcohol and Drug Abuse Patient Records regulations: The Federal rules restrict any use of the information to criminally investigate or prosecute any alcohol or drug abuse patient.[facility]bleIn the event this information is protected by the Federal Confidentiality of Alcohol and Drug Abuse Patient Records regulations: The Federal rules restrict any use of the information to criminally investigate or prosecute any alcohol or drug abuse patient.[facility]bleIn the event this information is protected by the Federal Confidentiality of Alcohol and Drug Abuse Patient Records regulations: The Federal rules restrict any use of the information to criminally investigate or prosecute any alcohol or drug abuse patient.[facility]bleIn the event this information is protected by the Federal Confidentiality of Alcohol and Drug Abuse Patient Records regulations: The Federal rules restrict any use of the information to criminally investigate or prosecute any alcohol or drug abuse patient.[facility]bleIn the event this information is protected by the Federal Confidentiality of Alcohol and Drug Abuse Patient Records regulations: The Federal rules restrict any use of the information to criminally investigate or prosecute any alcohol or drug abuse patient.[facility]bleIn the event this information is protected by the Federal Confidentiality of Alcohol and Drug Abuse Patient Records regulations: The Federal rules restrict any use of the information to criminally investigate or prosecute any alcohol or drug abuse patient.[facility]bleIn the event this information is protected by the Federal Confidentiality of Alcohol and Drug Abuse Patient Records regulations: The Federal rules restrict any use of the information to criminally investigate or prosecute any alcohol or drug abuse patient.[facility]bleIn the event this information is protected by the Federal Confidentiality of Alcohol and Drug Abuse Patient Records regulations: The Federal rules restrict any use of the information to criminally investigate or prosecute any alcohol or drug abuse patient.[facility]bleIn the event this information is protected by the Federal Confidentiality of Alcohol and Drug Abuse Patient Records regulations: The Federal rules restrict any use of the information to criminally investigate or prosecute any alcohol or drug abuse patient.[facility]bleIn the event this information is protected by the Federal Confidentiality of Alcohol and Drug Abuse Patient Records regulations: The Federal rules restrict any use of the information to criminally investigate or prosecute any alcohol or drug abuse patient.[facility]bleIn the event this information is protected by the Federal Confidentiality of Alcohol and Drug Abuse Patient Records regulations: The Federal rules restrict any use of the information to criminally investigate or prosecute any alcohol or drug abuse patient.[facility]bleIn the event this information is protected by the Federal Confidentiality of Alcohol and Drug Abuse Patient Records regulations: The Federal rules restrict any use of the information to criminally investigate or prosecute any alcohol or drug abuse patient.[facility]bleIn the event this information is protected by the Federal Confidentiality of Alcohol and Drug Abuse Patient Records regulations: The Federal rules restrict any use of the information to criminally investigate or prosecute any alcohol or drug abuse patient.[facility]bleIn the event this information is protected by the Federal Confidentiality of Alcohol and Drug Abuse Patient Records regulations: The Federal rules restrict any use of the information to criminally investigate or prosecute any alcohol or drug abuse patient.[facility]bleIn the event this information is protected by the Federal Confidentiality of Alcohol and Drug Abuse Patient Records regulations: The Federal rules restrict any use of the information to criminally investigate or prosecute any alcohol or drug abuse patient.[facility]bleIn the event this information is protected by the Federal Confidentiality of Alcohol and Drug Abuse Patient Records regulations: The Federal rules restrict any use of the information to criminally investigate or prosecute any alcohol or drug abuse patient.[facility]bleIn the event this information is protected by the Federal Confidentiality of Alcohol and Drug Abuse Patient Records regulations: The Federal rules restrict any use of the information to criminally investigate or prosecute any alcohol or drug abuse patient.[facility] Care Teams (unrecognized sec tion and content) Human Factors Scientist Relationship Specialty Start Date End Date Dipak Aguilar DO [address] [place] [address] PCP - General Family Practice 11/10/15 Human Factors Scientist Relationship Specialty Start Date End Date Aguilar, Dipak L, DO [address] [place] [address] PCP - General Family Practice 11/10/15 Human Factors Scientist Relationship Specialty Start Date End Date Dipak Aguilar, DO [address] [place] [address] PCP - General Family Medicine 11/10/15 Human Factors Scientist Relationship Specialty Start Date End Date Dipak Aguilar, DO [address] [place] [address] PCP - General Family Medicine 11/10/15 Human Factors Scientist Relationship Specialty Start Date End Date Dipak Aguilar, DO [address] [place] [address] PCP - General Family Medicine 11/10/15 Human Factors Scientist Relationship Specialty Start Date End Date Dipak Aguilar, DO [address] [place] [address] PCP - General Family Medicine 11/10/15 Human Factors Scientist Relationship Specialty Start Date End Date Dipak Aguilar, DO [address] [place] [address] PCP - General Family Medicine 11/10/15 Human Factors Scientist Relationship Specialty Start Date End Date Dipak Aguilar, DO [address] [place] [address] PCP - General Family Medicine 11/10/15 Human Factors Scientist Relationship Specialty Start Date End Date Dipak Aguilar, DO [address] [place] [address] PCP - General Family Medicine 11/10/15 Human Factors Scientist Relationship Specialty Start Date End Date Dipak Aguilar, DO [address] [place] [address] PCP - General Family Medicine 11/10/15 Human Factors Scientist Relationship Specialty Start Date End Date Dipak Aguilar, DO [address] [place] [address] PCP - General Family Medicine 11/10/15 Human Factors Scientist Relationship Specialty Start Date End Date Dipak Aguilar, DO [address] [place] [address] PCP - General Family Medicine 11/10/15 Human Factors Scientist Relationship Specialty Start Date End Date Dipak Aguilar, DO [address] [place] [address] PCP - General Family Medicine 11/10/15 Human Factors Scientist Relationship Specialty Start Date End Date Dipak Aguilar, DO [address] [place] [address] PCP - General Family Medicine 11/10/15 Human Factors Scientist Relationship Specialty Start Date End Date Dipak Aguilar, DO [address] [place] [address] PCP - General Family Medicine 11/10/15 Human Factors Scientist Relationship Specialty Start Date End Date Dipak Aguilar DO [address] [place] [address] PCP - General Family Medicine 11/10/15 Human Factors Scientist Relationship Specialty Start Date End Date Dipak Aguilar DO [address] [place] [address] PCP - General Family Medicine 11/10/15 Human Factors Scientist Relationship Specialty Start Date End Date Dipak Aguilar DO [address] [place] [address] PCP - General Family Medicine 11/10/15 Human Factors Scientist Relationship Specialty Start Date End Date Dipak Aguilar DO [address] [facility] [place] [address] PCP - General Family Medicine 11/10/15 Human Factors Scientist Relationship Specialty Start Date End Date Dipak Aguilar DO [address] [facility] [place] [address] PCP - General Family Medicine 11/10/15 Human Factors Scientist Relationship Specialty Start Date End Date Dipak Aguilar DO [address] [facility] [place] [address] PCP - General Family Medicine 11/10/15 Human Factors Scientist Relationship Specialty Start Date End Date Dipak Aguilar DO [address] [facility] [place] [address] PCP - General Family Medicine 11/10/15 Human Factors Scientist Relationship Specialty Start Date End Date Dipak Aguilar DO [address] [facility] [place] [address] PCP - General Family Medicine 11/10/15 Human Factors Scientist Relationship Specialty Start Date End Date Dipak Aguilar DO [address] [facility] [place] [address] PCP - General Family Medicine 11/10/15 Human Factors Scientist Relationship Specialty Start Date End Date Dipak Aguilar DO [address] [facility] [place] [address] PCP - General Family Medicine 11/10/15 Human Factors Scientist Relationship Specialty Start Date End Date Dipak Aguilar DO [address] [facility] [place] [address] PCP - General Family Medicine 11/10/15 Human Factors Scientist Relationship Specialty Start Date End Date Dipak Aguilar DO [address] [facility] [place] [address] PCP - General Family Medicine 11/10/15 Human Factors Scientist Relationship Specialty Start Date End Date Dipak Aguilar DO [address] [facility] [place] [address] PCP - General Family Medicine 11/10/15 Human Factors Scientist Relationship Specialty Start Date End Date Dipak Aguilar DO [address] [facility] [place] [address] PCP - General Family Medicine 11/10/15 Human Factors Scientist Relationship Specialty Start Date End Date Dipak Aguilar DO [address] [facility] [place] [address] PCP - General Family Medicine 11/10/15 Human Factors Scientist Relationship Specialty Start Date End Date Dipak Aguilar DO [address] [facility] [place] [address] PCP - General Family Medicine 11/10/15 Ananya Corbin, RN [address] [id number] Remote Control Assembler Family Medicine 10/02/2009/23 Human Factors Scientist Relationship Specialty Start Date End Date Dipak Aguilar DO [address] [facility] [place] [address] PCP - General Family Medicine 11/10/15 Human Factors Scientist Relationship Specialty Start Date End Date Dipak Aguilar DO [address] [facility] [place] [address] PCP - General Family Medicine 11/10/15 Human Factors Scientist Relationship Specialty Start Date End Date Dipak Aguilar DO [address] [facility] [place] [address] PCP - General Family Medicine 11/10/15 Human Factors Scientist Relationship Specialty Start Date End Date Dipak Aguilar DO [address] [facility] [place] [address] PCP - General Family Medicine 11/10/15 Human Factors Scientist Relationship Specialty Start Date End Date Dipak Aguilar DO [address] [facility] [place] [address] PCP - General Family Medicine 11/10/15 Human Factors Scientist Relationship Specialty Start Date End Date Dipak Aguilar DO [address] [facility] [place] [address] PCP - General Family Medicine 11/10/15 Human Factors Scientist Relationship Specialty Start Date End Date Dipak Aguilar DO [address] [facility] [place] [address] PCP - General Family Medicine 11/10/15 Human Factors Scientist Relationship Specialty Start Date End Date Dipak Aguilar DO [address] [facility] [place] [address] PCP - General Family Medicine 11/10/15 Human Factors Scientist Relationship Specialty Start Date End Date Dipak Aguilar DO [address] [facility] [place] [address] PCP - General Family Medicine 11/10/15 Radha Berman APRN.TERMINAL COMPUTER OPERATOR [address] [facility] [place] [address] [facility] 01/29/24 Elisa Garcia APRN.TERMINAL COMPUTER OPERATOR [address] [facility] [place] [address] [facility] 01/29/24 Human Factors Scientist Relationship Specialty Start Date End Date Dipak Aguilar DO [address] [facility] [place] [address] PCP - General Family Medicine 11/10/15 Radha Berman, ADVERTISING COPYWRITER.TERMINAL COMPUTER OPERATOR [address] [facility] [place] [address] [facility]24 Elisa Garcia, ADVERTISING COPYWRITER.TERMINAL COMPUTER OPERATOR [address] [facility] [place] [address] [facility] 01/29/24 Human Factors Scientist Relationship Specialty Start Date End Date Dipak Aguilar DO [address] [facility] [place] [address] PCP - General Family Medicine 11/10/15 Elisa Garcia, ADVERTISING COPYWRITER.TERMINAL COMPUTER OPERATOR [address] [facility] [place] [address] [facility] 01/29/24 Human Factors Scientist Relationship Specialty Start Date End Date Dipak Aguilar DO [address] [facility] [place] [address] PCP - General Family Medicine 11/10/15 Elisa Garcia, ADVERTISING COPYWRITER.TERMINAL COMPUTER OPERATOR [address] [facility] [place] [address] [facility] 01/29/24 Human Factors Scientist Relationship Specialty Start Date End Date Dipak Aguilar DO [address] [place] [address] PCP - General Family Medicine 11/10/15 Elisa Garcia, ADVERTISING COPYWRITER.TERMINAL COMPUTER OPERATOR [address] [place] [address] [facility] 01/29/24 Human Factors Scientist Relationship Specialty Start Date End Date Dipak Aguilar DO [address] [place] [address] PCP - General Family Medicine 11/10/15 Elisa Garcia, ADVERTISING COPYWRITER.TERMINAL COMPUTER OPERATOR [address] [place] [address] [facility] 01/29/24 Human Factors Scientist Relationship Specialty Start Date End Date Dipak Aguilar DO [address] [place] [address] PCP - General Family Medicine 11/10/15 Elisa Garcia, ADVERTISING COPYWRITER.TERMINAL COMPUTER OPERATOR [address] [place] [address] [facility] 01/29/24 Human Factors Scientist Relationship Specialty Start Date End Date Dipak Aguilar DO [address] [place] [address] PCP - General Family Medicine 11/10/15 Elisa Garcia, ADVERTISING COPYWRITER.TERMINAL COMPUTER OPERATOR [address] [place] [address] [facility] 01/29/24 Human Factors Scientist Relationship Specialty Start Date End Date Dipak Aguilar DO [address] [place] [address] PCP - General Family Medicine 11/10/15 Elisa Garcia, ADVERTISING COPYWRITER.TERMINAL COMPUTER OPERATOR [address] [place] [address] [facility] 01/29/24 Human Factors Scientist Relationship Specialty Start Date End Date Dipak Aguilar DO [address] [place] [address] PCP - General Family Medicine 11/10/15 Elisa Garcia, ADVERTISING COPYWRITER.TERMINAL COMPUTER OPERATOR [address] [place] [address] [facility] 01/29/24 Human Factors Scientist Relationship Specialty Start Date End Date Dipak Aguilar DO [address] [place] [address] PCP - General Family Medicine 11/10/15 Elisa Garcia, ADVERTISING COPYWRITER.TERMINAL COMPUTER OPERATOR [address] [place] [address] [facility] 01/29/24 Human Factors Scientist Relationship Specialty Start Date End Date Dipak Aguilar DO [address] [place] [address] PCP - General Family Medicine 11/10/15 Elisa Garcia, ADVERTISING COPYWRITER.TERMINAL COMPUTER OPERATOR [address] [place] [address] [facility] 01/29/24 Human Factors Scientist Relationship Specialty Start Date End Date Dipak Aguilar DO [address] [place] [address] PCP - General Family Medicine 11/10/15 Elisa Garcia, ADVERTISING COPYWRITER.TERMINAL COMPUTER OPERATOR [address] [facility] [place] [address] [facility] 01/29/24 Human Factors Scientist Relationship Specialty Start Date End Date Dipak Aguilar DO [address] [facility] [place] [address] PCP - General Family Medicine 11/10/15 Elisa Garcia, ADVERTISING COPYWRITER.TERMINAL COMPUTER OPERATOR [address] [place] [address] [facility] 01/29/24 Human Factors Scientist Relationship Specialty Start Date End Date Dipak Aguilar DO [address] [facility] [place] [address] PCP - General Family Medicine 11/10/15 JoseElisa, ADVERTISING COPYWRITER.TERMINAL COMPUTER OPERATOR [address] [place] [address] [facility] 01/29/24 Human Factors Scientist Relationship Specialty Start Date End Date Dipak Aguilar DO [address] [facility] [place] [address] PCP - General Family Medicine 11/10/15 JoseElisa, ADVERTISING COPYWRITER.TERMINAL COMPUTER OPERATOR [address] [facility] [place] [address] [facility] 01/29/24 Ruma Chi, ADVERTISING COPYWRITER.TERMINAL COMPUTER OPERATOR [address] [place] [address] [facility] 08/06/24 Human Factors Scientist Relationship Specialty Start Date End Date Dipak Aguilar DO [address] [place], [place] [address] PCP - General Family Medicine 11/10/15 JoseElisa, ADVERTISING COPYWRITER.TERMINAL COMPUTER OPERATOR [address] [place], [place] [address] [phone] [facility] 01/29/24 Ruma Chi, ADVERTISING COPYWRITER.TERMINAL COMPUTER OPERATOR [address] [place], [place] [address] [facility] 08/06/24 Team Status: Active Member Role/Relationship Status Dates Dr. Dipak Aguilar DO Primary Care Provider Active Team Status: Inactive Member Role/Relationship Status Dates Dr. Dipak Aguilar DO Primary Care Provider Active Start: September 11, 2024 End: September 11, 2024 Dr. Sukhdev Mark MD Emergency Provider Active Sta rt: September 11, 2024 End: September 11, 2024 Human Factors Scientist Relationship Specialty Start Date End Date Dipak Aguilar DO [address] [place] [address] PCP - General Family Medicine 11/10/15 JoseElisa, ADVERTISING COPYWRITER.TERMINAL COMPUTER OPERATOR [address] [place] [address] [facility] 01/29/24 Ruma Chi, ADVERTISING COPYWRITER.TERMINAL COMPUTER OPERATOR [address] [place], [place] [address] [facility] 08/06/24 Human Factors Scientist Relationship Specialty Start Date End Date Dipak Agiular DO [address] [place], [place] [address]22[address] PCP - General Family Medicine 11/10/15 Elisa Garcia, ADVERTISING COPYWRITER.TERMINAL COMPUTER OPERATOR [address] [place] [address] [facility] 01/29/24 Ruma Chi, ADVERTISING COPYWRITER.TERMINAL COMPUTER OPERATOR [address] [place] [address] [facility] 08/06/24 Human Factors Scientist Relationship Specialty Start Date End Date Dipak Aguilar DO [address] [place] [address] PCP - General Family Medicine 11/10/15 Elisa Garcia, ADVERTISING COPYWRITER.TERMINAL COMPUTER OPERATOR [address] [place] [address] [facility] 01/29/24 Ruma Chi, ADVERTISING COPYWRITER.TERMINAL COMPUTER OPERATOR [address] [place] [address] [facility] 08/06/24 Human Factors Scientist Relationship Specialty Start Date End Date Dipak Aguilar DO [address] [place] [address] PCP - General Family Medicine 11/10/15 Elisa Garcia, ADVERTISING COPYWRITER.TERMINAL COMPUTER OPERATOR [address] [place] [address] [facility] 01/29/24 Ruma Chi, ADVERTISING COPYWRITER.TERMINAL COMPUTER OPERATOR [address] [place] [address] [facility] 08/06/24 Team Status: Inactive Member Role/Relationship Status [...] October 14, 2024 End: October 14, 2024 Team Status: Inactive Member Role/Relationship Status Dates Dr. iDpak Aguilar DO Primary Care Provider Active Start: October 14, 2024 End: October 14, 2024 Dr. Abdelrahman Keller MD Attending Provider Active Start: October 14, 2024 End: October 14, 2024 Dr. Abdelrahman Keller MD Emergency Provider Active Start: October 14, 2024 End: October 14, 2024 Team Status: Active Member Role/Relationship Status Dates Dr. Dipak Aguilar DO Primary Care Provider Active Start: October 26, 2024 Akira Blanco MD Emergency Provider Active Star t: October 26, 2024 Dr. Fernanda Triplett MD Admit Provider Active St art: October 26, 2024 Dr. Fernanda Triplett MD Attending Provider Active Start: October 26, 2024 Dr. Fernanda Triplett MD Other Provider Active St art: October 26, 2024 Human Factors Scientist Relationship Specialty Start Date End Date Dipak Aguilar DO [address] [facility] [place] [address] PCP - General Family Medicine 11/10/15 Elisa Garcia, ADVERTISING COPYWRITER.TERMINAL COMPUTER OPERATOR [address] [facility] [place] [address] [facility] 01/29/24 Ruma Chi, ADVERTISING COPYWRITER.TERMINAL COMPUTER OPERATOR [address] [place] [address] [facility] 08/06/24 Team Status: Inactive Member Role/Relationship Status Dates Dr. Dipak Aguilar DO Primary Care Provider Active Start: October 26, 2024 End: November 06, 2024 Akira Blanco MD Emergency Provider Active Star t: October 26, 2024 End: November 06, 2024 Dr. Fernanda Triplett MD Admit Provider Active St art: October 26, 2024 End: November 06, 2024 Dr. Fernanda Triplett MD Other Provider Active St art: October 26, 2024 End: November 06, 2024 Dr. Khai Bose MD Other Provider Active Sta rt: October 26, 2024 End: November 06, 2024 Dr. Cece Bella MD Other Provider Active St art: October 26, 2024 End: November 06, 2024 Dr. Kenn Cavazos MD Other Provider Active St art: October 26, 2024 End: November 06, 2024 Dr. Junito Knowles MD Other Provider Active Start: October 26, 2024 End: November 06, 2024 Dr. Gerard Asencio MD Other Provider Active Start: October 26, 2024 End: November 06, 2024 Dr. Ilan Contreras MD Attending Provider Active Start: October 26, 2024 End: November 06, 2024 Dr. Genia Scott DO Other Provider Active Start : October 26, 2024 End: November 06, 2024 Team Status: Active Member Role/Relationship Status Dates Dr. Dipak Aguilar DO Primary Care Provider Active Start: October 27, 2024 Akira Blanco MD Emergency Provider Active Star t: October 27, 2024 Dr. Fernanda Triplett MD Admit Provider Active St art: October 27, 2024 Dr. Fernanda Triplett MD Other Provider Active St art: October 27, 2024 Dr. Kenn Cavazos MD Other Provider Active St art: October 27, 2024 Dr. Blake Pinzon MD Other Provider Active Start: October 27, 2024 Dr. Woo Rehman MD Other Provider Active Start: October 27, 2024 Dr. Shahriar Pressley MD Other Provider Active Star t: October 27, 2024 Dr. Goran Bowens DO Other Provider Active Start : October 27, 2024 Dr. Ilan Oliver MD Other Provider Active Sta rt: October 27, 2024 Dr. Evert Colby MD Other Provider Active St art: October 27, 2024 Dr. Harrison Garay MD Other Provider Active S tart: October 27, 2024 Dr. Antonette Angeles MD Other Provider Active Start: October 27, 2024 Dr. Camilo Alva MD Other Provider Active Start : October 27, 2024 Dr. Héctor Neri MD Other Provider Active Start: October 27, 2024 Dr. Ameya Smith MD Other Provider Active Start : October 27, 2024 Dr. Beronica Cespedes MD Other Provider Active Star t: October 27, 2024 Dr. Cata Bustillo MD Other Provider Active Sta rt: October 27, 2024 Dr. Stephanie Tariq MD Other Provider Active Sta rt: October 27, 2024 Dr. Jesus Zabala MD Other Provider Active Star t: October 27, 2024 Dr. Jackson Marcum MD Other Provider Active St art: October 27, 2024 Dr. Robi Romero MD Other Provider Active Star t: October 27, 2024 Dr. Lalo Alcaraz DO Other Provider Active St art: October 27, 2024 Dr. Teresa Johnson MD Other Provider Active Start: October 27, 2024 Dr. Ariana Dietrich MD Other Provider Active St art: October 27, 2024 Dr. Jose Bergeron DO Other Provider Active Start: October 27, 2024 Dr. Herb Kim MD Other Provider Active Start: October 27, 2024 Dr. Jacky Blackwood MD Other Provider Active Star t: October 27, 2024 Dr. Nancy Wang MD Other Provider Active Start: October 27, 2024 Dr. Elaine Duenas MD Other Provider Active Sta rt: October 27, 2024 Vidhya Byrd COMMUNITY ADVOCATE, COMMUNITY ADVOCATE-C Other Provider Active Start: October 27, 2024 Oriana Correia NP-C Other Provider Active St art: October 27, 2024 Dr. Khai Bose MD Attending Provider Active Start: October 27, 2024 Dr. Khai Bose MD Other Provider Active Sta rt: October 27, 2024 Team Status: Active Member Role/Relationship Status Dates Dr. Dipak Aguilar DO Primary Care Provider Active Start: October 27, 2024 Dr. Sue Anderson MD Attending Provider Activ e Start: October 27, 2024 Team Status: Active Member Role/Relationship Status Dates Dr. Dipak Aguilar DO Primary Care Provider Active Start: October 27, 2024 Akira Blanco MD Emergency Provider Active Star t: October 27, 2024 Dr. Fernanda Triplett MD Admit Provider Active St art: October 27, 2024 Dr. Fernanda Triplett MD Other Provider Active St art: October 27, 2024 Dr. Kenn Cavazos MD Attending Provider Active Start: October 27, 2024 Dr. Kenn Cavazos MD Other Provider Active St art: October 27, 2024 Dr. Blake Pinzon MD Other Provider Active Start: October 27, 2024 Dr. Woo Rehman MD Other Provider Active Start: October 27, 2024 Dr. Shahriar Pressley MD Other Provider Active Star t: October 27, 2024 Dr. Goran Bowens DO Other Provider Active Start : October 27, 2024 Dr. Ilan Oliver MD Other Provider Active Sta rt: October 27, 2024 Dr. Evert Colby MD Other Provider Active St art: October 27, 2024 Dr. Harrison Garay MD Other Provider Active S tart: October 27, 2024 Dr. Antonette Angeles MD Other Provider Active Start: October 27, 2024 Dr. Camilo Alva MD Other Provider Active Start : October 27, 2024 Dr. Héctor Neri MD Other Provider Active Start: October 27, 2024 Dr. Ameya Smith MD Other Provider Active Start : October 27, 2024 Dr. Beronica Cespedes MD Other Provider Active Star t: October 27, 2024 Dr. Cata Bustillo MD Other Provider Active Sta rt: October 27, 2024 Dr. Stephanie Tariq MD Other Provider Active Sta rt: October 27, 2024 Dr. Jesus Zabala MD Other Provider Active Star t: October 27, 2024 Dr. Jackson Marcum MD Other Provider Active St art: October 27, 2024 Dr. Robi Romero MD Other Provider Active Star t: October 27, 2024 Dr. Lalo Alcaraz , Other Provider Active St art: October 27, 2024 Dr. Teresa Johnson MD Other Provider Active Start: October 27, 2024 Dr. Ariana Dietrich MD Other Provider Active St art: October 27, 2024 Dr. Jose Bergeron DO Other Provider Active Start: October 27, 2024 Dr. Herb Kim MD Other Provider Active Start: October 27, 2024 Dr. Jacky Blackwood MD Other Provider Active Star t: October 27, 2024 Dr. Nancy Wang MD Other Provider Active Start: October 27, 2024 Dr. Elaine Duenas MD Other Provider Active Sta rt: October 27, 2024 Vidhya Byrd NP, COMMUNITY ADVOCATE-C Other Provider Active Start: October 27, 2024 Oriana Correia NP-C Other Provider Active St art: October 27, 2024 Dr. Khai Bose MD Other Provider Active Sta rt: October 27, 2024 Team Status: Active Member Role/Relationship Status Dates Dr. Dipak Aguilar DO Primary Care Provider Active Start: October 28, 2024 Akira Blanco MD Emergency Provider Active Star t: October 28, 2024 Dr. Fernanda Triplett MD Admit Provider Active St art: October 28, 2024 Dr. Fernanda Triplett MD Other Provider Active St art: October 28, 2024 Dr. Kenn Cavazos MD Other Provider Active St art: October 28, 2024 Dr. Blake Pinzon MD Other Provider Active Start: October 28, 2024 Dr. Woo Rehman MD Other Provider Active Start: October 28, 2024 Dr. Shahriar Pressley MD Other Provider Active Star t: October 28, 2024 Dr. Goran Bowens DO Other Provider Active Start : October 28, 2024 Dr. Ilan Oliver MD Other Provider Active Sta rt: October 28, 2024 Dr. Evert Colby MD Other Provider Active St art: October 28, 2024 Dr. Harrison Garay MD Other Provider Active S tart: October 28, 2024 Dr. Antonette Angeles MD Other Provider Active Start: October 28, 2024 Dr. Camilo Alva MD Other Provider Active Start : October 28, 2024 Dr. Héctor Neri MD Other Provider Active Start: October 28, 2024 Dr. Ameya Smith MD Other Provider Active Start : October 28, 2024 Dr. Beronica Cespedes MD Other Provider Active Star t: October 28, 2024 Dr. Cata Bustillo MD Other Provider Active Sta rt: October 28, 2024 Dr. Stephanie Tariq MD Other Provider Active Sta rt: October 28, 2024 Dr. Jesus Zabala MD Other Provider Active Star t: October 28, 2024 Dr. Jackson Marcum MD Other Provider Active St art: October 28, 2024 Dr. Robi Romero MD Other Provider Active Star t: October 28, 2024 Dr. Lalo Alcaraz DO Other Provider Active St art: October 28, 2024 Dr. Teresa Johnson MD Other Provider Active Start: October 28, 2024 Dr. Ariana Dietrich MD Other Provider Active St art: October 28, 2024 Dr. Jose Bergeron DO Other Provider Active Start: October 28, 2024 Dr. Herb Kim MD Other Provider Active Start: October 28, 2024 Dr. Jacky Blackwood MD Other Provider Active Star t: October 28, 2024 Dr. Nancy Wang MD Other Provider Active Start: October 28, 2024 Dr. Elaine Duenas MD Other Provider Active Sta rt: October 28, 2024 Vidhya Byrd NP, COMMUNITY ADVOCATE-C Other Provider Active Start: October 28, 2024 Oriana Correia , ISI-C Other Provider Active St art: October 28, 2024 Dr. Khai Bose MD Attending Provider Active Start: October 28, 2024 Dr. Khai Bose MD Other Provider Active Sta rt: October 28, 2024 Team Status: Active Member Role/Relationship Status Dates Dr. Dipak Aguilar DO Primary Care Provider Active Start: October 28, 2024 Akira Blanco MD Emergency Provider Active Star t: October 28, 2024 Dr. Fernanda Triplett MD Admit Provider Active St art: October 28, 2024 Dr. Fernanad Triplett MD Other Provider Active St art: October 28, 2024 Dr. Kenn Cavazos MD Attending Provider Active Start: October 28, 2024 Dr. Kenn Cavazos MD Other Provider Active St art: October 28, 2024 Dr. Blake Pinzon MD Other Provider Active Start: October 28, 2024 Dr. Woo Rehman MD Other Provider Active Start: October 28, 2024 Dr. Shahriar Pressley MD Other Provider Active Star t: October 28, 2024 Dr. Goran Bowens DO Other Provider Active Start : October 28, 2024 Dr. Ilan Oliver MD Other Provider Active Sta rt: October 28, 2024 Dr. Evert Colby MD Other Provider Active St art: October 28, 2024 Dr. Harrison Garay MD Other Provider Active S tart: October 28, 2024 Dr. Antonette Angeles MD Other Provider Active Start: October 28, 2024 Dr. Camilo Alva MD Other Provider Active Start : October 28, 2024 Dr. Héctor Neri MD Other Provider Active Start: October 28, 2024 Dr. Ameya Smith MD Other Provider Active Start : October 28, 2024 Dr. Beronica Cespedes MD Other Provider Active Star t: October 28, 2024 Dr. Cata Bustillo MD Other Provider Active Sta rt: October 28, 2024 Dr. Stephanie Tariq MD Other Provider Active Sta rt: October 28, 2024 Dr. Jesus Zabala MD Other Provider Active Star t: October 28, 2024 Dr. Jackson Marcum MD Other Provider Active St art: October 28, 2024 Dr. Robi Romero MD Other Provider Active Star t: October 28, 2024 Dr. Lalo Alcaraz DO Other Provider Active St art: October 28, 2024 Dr. Teresa Johnson MD Other Provider Active Start: October 28, 2024 Dr. Ariana Dietrich MD Other Provider Active St art: October 28, 2024 Dr. Jose Bergeron DO Other Provider Active Start: October 28, 2024 Dr. Herb Kim MD Other Provider Active Start: October 28, 2024 Dr. Jacky Blackwood MD Other Provider Active Star t: October 28, 2024 Dr. Nancy Wang MD Other Provider Active Start: October 28, 2024 Dr. Elaine Duenas MD Other Provider Active Sta rt: October 28, 2024 Vidhya Byrd COMMUNITY ADVOCATE, COMMUNITY ADVOCATE-C Other Provider Active Start: October 28, 2024 Oriana Correia , COMMUNITY ADVOCATE-C Other Provider Active St art: October 28, 2024 Dr. Khai Bose MD Other Provider Active Sta rt: October 28, 2024 Team Status: Active Member Role/Relationship Status Dates Dr. Dipak Aguilar DO Primary Care Provider Active Start: October 29, 2024 Akira Blanco MD Emergency Provider Active Star t: October 29, 2024 Dr. Fernanda Triplett MD Admit Provider Active St art: October 29, 2024 Dr. Fernanda Triplett MD Other Provider Active St art: October 29, 2024 Dr. Kenn Cavazos MD Other Provider Active St art: October 29, 2024 Dr. Blake Pinzon MD Other Provider Active Start: October 29, 2024 Dr. Woo Rehman MD Other Provider Active Start: October 29, 2024 Dr. Shahriar Pressley MD Other Provider Active Star t: October 29, 2024 Dr. Goran Bowens DO Other Provider Active Start : October 29, 2024 Dr. Ilan Oliver MD Other Provider Active Sta rt: October 29, 2024 Dr. Evert Colby MD Other Provider Active St art: October 29, 2024 Dr. Harrison Garay MD Other Provider Active S tart: October 29, 2024 Dr. Antonette Angeles MD Other Provider Active Start: October 29, 2024 Dr. Camilo Alva MD Other Provider Active Start : October 29, 2024 Dr. Héctor Neri MD Other Provider Active Start: October 29, 2024 Dr. Ameya Smith MD Other Provider Active Start : October 29, 2024 Dr. Beronica Cespedes MD Other Provider Active Star t: October 29, 2024 Dr. Cata Bustillo MD Other Provider Active Sta rt: October 29, 2024 Dr. Stephanie Tariq MD Other Provider Active Sta rt: October 29, 2024 Dr. Jesus Zabala MD Other Provider Active Star t: October 29, 2024 Dr. Jackson Marcum MD Other Provider Active St art: October 29, 2024 Dr. Robi Romero MD Other Provider Active Star t: October 29, 2024 Dr. Lalo Alcaraz DO Other Provider Active St art: October 29, 2024 Dr. Teresa Johnson MD Other Provider Active Start: October 29, 2024 Dr. Ariana Dietrich MD Other Provider Active St art: October 29, 2024 Dr. Jose Bergeron DO Other Provider Active Start: October 29, 2024 Dr. Herb Kim MD Other Provider Active Start: October 29, 2024 Dr. Jacky Blackwood MD Other Provider Active Star t: October 29, 2024 Dr. Nancy Wang MD Other Provider Active Start: October 29, 2024 Dr. Elaine Duenas MD Other Provider Active Sta rt: October 29, 2024 Vidhya Byrd NP, COMMUNITY ADVOCATE-C Other Provider Active Start: October 29, 2024 Oriana Correia NP-C Other Provider Active St art: October 29, 2024 Dr. Khai Bose MD Attending Provider Active Start: October 29, 2024 Dr. Khai Bose MD Other Provider Active Sta rt: October 29, 2024 Dr. Gerard Asencio MD Other Provider Active Start: October 29, 2024 Team Status: Active Member Role/Relationship Status Dates Dr. Dipak Aguilar DO Primary Care Provider Active Start: October 29, 2024 Akira Blanco MD Emergency Provider Active Star t: October 29, 2024 Dr. Fernanda Triplett MD Admit Provider Active St art: October 29, 2024 Dr. Fernanda Triplett MD Other Provider Active St art: October 29, 2024 Dr. Kenn Cavazos MD Other Provider Active St art: October 29, 2024 Dr. Blake Pinzon MD Other Provider Active Start: October 29, 2024 Dr. Woo Rehman MD Other Provider Active Start: October 29, 2024 Dr. Shahriar Pressley MD Other Provider Active Star t: October 29, 2024 Dr. Goran Bowens DO Other Provider Active Start : October 29, 2024 Dr. Ilan Oliver MD Other Provider Active Sta rt: October 29, 2024 Dr. Evert Colby MD Other Provider Active St art: October 29, 2024 Dr. Harrison Garay MD Other Provider Active S tart: October 29, 2024 Dr. Antonette Angeles MD Other Provider Active Start: October 29, 2024 Dr. Camilo Alva MD Other Provider Active Start : October 29, 2024 Dr. Héctor Neri MD Other Provider Active Start: October 29, 2024 Dr. Ameya Smith MD Other Provider Active Start : October 29, 2024 Dr. Beronica Cespedes MD Other Provider Active Star t: October 29, 2024 Dr. Cata Bustillo MD Other Provider Active Sta rt: October 29, 2024 Dr. Stephanie Tariq MD Other Provider Active Sta rt: October 29, 2024 Dr. Jesus Zabala MD Other Provider Active Star t: October 29, 2024 Dr. Jackson Marcum MD Other Provider Active St art: October 29, 2024 Dr. Robi Romero MD Other Provider Active Star t: October 29, 2024 Dr. Lalo Alcaraz DO Other Provider Active St art: October 29, 2024 Dr. Teresa Johnson MD Other Provider Active Start: October 29, 2024 Dr. Ariana Dietrich MD Other Provider Active St art: October 29, 2024 Dr. Jose Bergeron DO Other Provider Active Start: October 29, 2024 Dr. Herb Kim MD Other Provider Active Start: October 29, 2024 Dr. Jacky Blackwood MD Other Provider Active Star t: October 29, 2024 Dr. Nancy Wang MD Other Provider Active Start: October 29, 2024 Dr. Elaine Duenas MD Other Provider Active Sta rt: October 29, 2024 Vidhya Byrd NP, COMMUNITY ADVOCATE-C Other Provider Active Start: October 29, 2024 Oriana Correia NP-C Other Provider Active St art: October 29, 2024 Dr. Khai Bose MD Other Provider Active Sta rt: October 29, 2024 MARIEL Sandoval-C Attending Provider Active Start: October 29, 2024 Team Status: Active Member Role/Relationship Status Dates Dr. Dipak Aguilar DO Primary Care Provider Active Start: October 30, 2024 Akira Blanco MD Emergency Provider Active Star t: October 30, 2024 Dr. Fernanda Triplett MD Admit Provider Active St art: October 30, 2024 Dr. Fernanda Triplett MD Other Provider Active St art: October 30, 2024 Dr. Kenn Cavazos MD Other Provider Active St art: October 30, 2024 Dr. Blake Pinzon MD Other Provider Active Start: October 30, 2024 Dr. Woo Rehman MD Other Provider Active Start: October 30, 2024 Dr. Shahriar Pressley MD Other Provider Active Star t: October 30, 2024 Dr. Goran Bowens DO Other Provider Active Start : October 30, 2024 Dr. Ilan Oliver MD Other Provider Active Sta rt: October 30, 2024 Dr. Evert Colby MD Other Provider Active St art: October 30, 2024 Dr. Harrison Garay MD Other Provider Active S tart: October 30, 2024 Dr. Antonette Angeles MD Other Provider Active Start: October 30, 2024 Dr. Camilo Alva MD Other Provider Active Start : October 30, 2024 Dr. Héctor Neri MD Other Provider Active Start: October 30, 2024 Dr. Ameya Smith MD Other Provider Active Start : October 30, 2024 Dr. Beronica Cespedes MD Other Provider Active Star t: October 30, 2024 Dr. Cata Bustillo MD Other Provider Active Sta rt: October 30, 2024 Dr. Stephanie Tariq MD Other Provider Active Sta rt: October 30, 2024 Dr. Jesus Zabala MD Other Provider Active Star t: October 30, 2024 Dr. Jackson Marcum MD Other Provider Active St art: October 30, 2024 Dr. Robi Romero MD Other Provider Active Star t: October 30, 2024 Dr. Lalo Alcaraz DO Other Provider Active St art: October 30, 2024 Dr. Teresa Johnosn MD Other Provider Active Start: October 30, 2024 Dr. Ariana Dietrich MD Other Provider Active St art: October 30, 2024 Dr. Jose Bergeron DO Other Provider Active Start: October 30, 2024 Dr. Herb Kim MD Other Provider Active Start: October 30, 2024 Dr. Jacky Blackwood MD Other Provider Active Star t: October 30, 2024 Dr. Nancy Wang MD Other Provider Active Start: October 30, 2024 Dr. Elaine Duenas MD Other Provider Active Sta rt: October 30, 2024 Vidhya Byrd COMMUNITY ADVOCATE, COMMUNITY ADVOCATE-C Other Provider Active Start: October 30, 2024 Oriana Correia NP-C Other Provider Active St art: October 30, 2024 Dr. Khai Bose MD Other Provider Active Sta rt: October 30, 2024 Dr. Gerard Asencio MD Other Provider Active Start: October 30, 2024 Kylee FLOYD PA-C Attending Provider Active Start: October 30, 2024 Team Status: Active Member Role/Relationship Status Dates Dr. Dipak Aguilar DO Primary Care Provider Active Start: October 30, 2024 Akira Blanco MD Emergency Provider Active Star t: October 30, 2024 Dr. Fernanda Triplett MD Admit Provider Active St art: October 30, 2024 Dr. Fernanda Triplett MD Other Provider Active St art: October 30, 2024 Dr. Kenn Cavazos MD Other Provider Active St art: October 30, 2024 Dr. Blake Pinzon MD Other Provider Active Start: October 30, 2024 Dr. Woo Rehman MD Other Provider Active Start: October 30, 2024 Dr. Shahriar Perssley MD Other Provider Active Star t: October 30, 2024 Dr. Goran Bowens DO Attending Provider Active S tart: October 30, 2024 Dr. Goran Bowens DO Other Provider Active Start : October 30, 2024 Dr. Ilan Oliver MD Other Provider Active Sta rt: October 30, 2024 Dr. Evert Colby MD Other Provider Active St art: October 30, 2024 Dr. Harrison Garay MD Other Provider Active S tart: October 30, 2024 Dr. Antonette Angeles MD Other Provider Active Start: October 30, 2024 Dr. Camilo Alva MD Other Provider Active Start : October 30, 2024 Dr. Héctor Neri MD Other Provider Active Start: October 30, 2024 Dr. Ameya Smith MD Other Provider Active Start : October 30, 2024 Dr. Beronica Cespedes MD Other Provider Active Star t: October 30, 2024 Dr. Cata Bustillo MD Other Provider Active Sta rt: October 30, 2024 Dr. Stephanie Tariq MD Other Provider Active Sta rt: October 30, 2024 Dr. Jesus Zabala MD Other Provider Active Star t: October 30, 2024 Dr. Jackson Marcum MD Other Provider Active St art: October 30, 2024 Dr. Robi Romero MD Other Provider Active Star t: October 30, 2024 Dr. Lalo Alcaraz DO Other Provider Active St art: October 30, 2024 Dr. Teresa Johnson MD Other Provider Active Start: October 30, 2024 Dr. Ariana Dietrich MD Other Provider Active St art: October 30, 2024 Dr. Jose Bergeron DO Other Provider Active Start: October 30, 2024 Dr. Herb Kim MD Other Provider Active Start: October 30, 2024 Dr. Jacky Blackwood MD Other Provider Active Star t: October 30, 2024 Dr. Nancy Wang MD Other Provider Active Start: October 30, 2024 Dr. Elaine Duenas MD Other Provider Active Sta rt: October 30, 2024 Vidhya Byrd NP, COMMUNITY ADVOCATE-C Other Provider Active Start: October 30, 2024 Oriana Correia NP-C Other Provider Active St art: October 30, 2024 Dr. Khai Bose MD Other Provider Active Sta rt: October 30, 2024 Dr. Gerard Asencio MD Other Provider Active Start: October 30, 2024 Team Status: Active Member Role/Relationship Status Dates Dr. Dipak Aguilar DO Primary Care Provider Active Start: October 30, 2024 Akira Blanco MD Emergency Provider Active Star t: October 30, 2024 Dr. Fernanda Triplett MD Admit Provider Active St art: October 30, 2024 Dr. Fernanda Triplett MD Other Provider Active St art: October 30, 2024 Dr. Kenn Cavazos MD Other Provider Active St art: October 30, 2024 Dr. Blake Pinzon MD Other Provider Active Start: October 30, 2024 Dr. Woo Rehman MD Other Provider Active Start: October 30, 2024 Dr. Shahriar Pressley MD Other Provider Active Star t: October 30, 2024 Dr. Goran Bowens , Other Provider Active Start : October 30, 2024 Dr. Ilan Oliver MD Other Provider Active Sta rt: October 30, 2024 Dr. Evert Colby MD Other Provider Active St art: October 30, 2024 Dr. Harrison Garay MD Other Provider Active S tart: October 30, 2024 Dr. Antonette Angeles MD Other Provider Active Start: October 30, 2024 Dr. Camilo Alva MD Other Provider Active Start : October 30, 2024 Dr. Héctor Neri MD Other Provider Active Start: October 30, 2024 Dr. Ameya Smith MD Other Provider Active Start : October 30, 2024 Dr. Beronica Cespedes MD Other Provider Active Star t: October 30, 2024 Dr. Cata Bustillo MD Other Provider Active Sta rt: October 30, 2024 Dr. Stephanie Tariq MD Other Provider Active Sta rt: October 30, 2024 Dr. Jesus Zabala MD Other Provider Active Star t: October 30, 2024 Dr. Jackson Marcum MD Other Provider Active St art: October 30, 2024 Dr. Robi Romero MD Other Provider Active Star t: October 30, 2024 Dr. Lalo Alcaraz DO Other Provider Active St art: October 30, 2024 Dr. Teresa Johnson MD Other Provider Active Start: October 30, 2024 Dr. Ariana Dietrich MD Other Provider Active St art: October 30, 2024 Dr. Jose Bergeron DO Other Provider Active Start: October 30, 2024 Dr. Herb Kim MD Other Provider Active Start: October 30, 2024 Dr. Jacky Blackwood MD Other Provider Active Star t: October 30, 2024 Dr. Nancy Wang MD Other Provider Active Start: October 30, 2024 Dr. Elaine Duenas MD Other Provider Active Sta rt: October 30, 2024 Vidhya Byrd NP, COMMUNITY ADVOCATE-C Other Provider Active Start: October 30, 2024 Oriana Correia NP-C Other Provider Active St art: October 30, 2024 Dr. Khai Bose MD Attending Provider Active Start: October 30, 2024 Dr. Khai Bose MD Other Provider Active Sta rt: October 30, 2024 Dr. Gerard Asencio MD Other Provider Active Start: October 30, 2024 Team Status: Active Member Role/Relationship Status Dates Dr. Dipak Aguilar DO Primary Care Provider Active Start: October 30, 2024 Akira Blanco MD Emergency Provider Active Star t: October 30, 2024 Dr. Fernanda Triplett MD Admit Provider Active St art: October 30, 2024 Dr. Fernanda Triplett MD Other Provider Active St art: October 30, 2024 Dr. Kenn Cavazos MD Other Provider Active St art: October 30, 2024 Dr. Blake Pinzon MD Other Provider Active Start: October 30, 2024 Dr. Woo Rehman MD Other Provider Active Start: October 30, 2024 Dr. Shahriar Pressley MD Other Provider Active Star t: October 30, 2024 Dr. Goran Bowens DO Other Provider Active Start : October 30, 2024 Dr. Ilan Oliver MD Other Provider Active Sta rt: October 30, 2024 Dr. Evert Colby MD Other Provider Active St art: October 30, 2024 Dr. Harrison Garay MD Other Provider Active S tart: October 30, 2024 Dr. Antonette Angeles MD Other Provider Active Start: October 30, 2024 Dr. Camilo Alva MD Other Provider Active Start : October 30, 2024 Dr. Héctor Neri MD Other Provider Active Start: October 30, 2024 Dr. Ameya Smith MD Other Provider Active Start : October 30, 2024 Dr. Beronica Cespedes MD Other Provider Active Star t: October 30, 2024 Dr. Cata Bustillo MD Other Provider Active Sta rt: October 30, 2024 Dr. Stephanie Tariq MD Other Provider Active Sta rt: October 30, 2024 Dr. Jesus Zabala MD Other Provider Active Star t: October 30, 2024 Dr. Jackson Marcum MD Other Provider Active St art: October 30, 2024 Dr. Robi Romero MD Other Provider Active Star t: October 30, 2024 Dr. Lalo Alcaraz DO Other Provider Active St art: October 30, 2024 Dr. Teresa Johnson MD Other Provider Active Start: October 30, 2024 Dr. Ariana Dietrich MD Other Provider Active St art: October 30, 2024 Dr. Jose Bergeron DO Other Provider Active Start: October 30, 2024 Dr. Herb Kim MD Other Provider Active Start: October 30, 2024 Dr. Jacky Blackwood MD Other Provider Active Star t: October 30, 2024 Dr. Nancy Wang MD Other Provider Active Start: October 30, 2024 Dr. Elaine Duenas MD Other Provider Active Sta rt: October 30, 2024 Vidhya Byrd NP, COMMUNITY ADVOCATE-C Other Provider Active Start: October 30, 2024 Oriana Correia NP-C Other Provider Active St art: October 30, 2024 Dr. Khai Bose MD Other Provider Active Sta rt: October 30, 2024 Dr. Gerard Asencio MD Other Provider Active Start: October 30, 2024 STUART Leslie Attending Provider Active Start: October STUART Leslie Other Provider Active Start: October Team Status: Active Member Role/Relationship Status Dates Dr. Dipak Aguilar DO Primary Care Provider Active Start: October 31, 2024 Akira Blanco MD Emergency Provider Active Star t: October 31, 2024 Dr. Fernanda Triplett MD Admit Provider Active St art: October 31, 2024 Dr. Fernanda Triplett MD Other Provider Active St art: October 31, 2024 Dr. Kenn Cavazos MD Other Provider Active St art: October 31, 2024 Dr. Blake Pinzon MD Other Provider Active Start: October 31, 2024 Dr. Woo Rehman MD Other Provider Active Start: October 31, 2024 Dr. Shahriar Pressley MD Other Provider Active Star t: October 31, 2024 Dr. Goran Bowens DO Other Provider Active Start : October 31, 2024 Dr. Ilan Oliver MD Other Provider Active Sta rt: October 31, 2024 Dr. Evert Colby MD Other Provider Active St art: October 31, 2024 Dr. Harrison Gaary MD Other Provider Active S tart: October 31, 2024 Dr. Antonette Angeles MD Other Provider Active Start: October 31, 2024 Dr. Camilo Alva MD Other Provider Active Start : October 31, 2024 Dr. Héctor Neri MD Other Provider Active Start: October 31, 2024 Dr. Ameya Smith MD Other Provider Active Start : October 31, 2024 Dr. Beronica Cespedes MD Other Provider Active Star t: October 31, 2024 Dr. Cata Bustillo MD Other Provider Active Sta rt: October 31, 2024 Dr. Stephanie Tariq MD Other Provider Active Sta rt: October 31, 2024 Dr. Jesus Zabala MD Other Provider Active Star t: October 31, 2024 Dr. Jackson Marcum MD Other Provider Active St art: October 31, 2024 Dr. Robi Romero MD Other Provider Active Star t: October 31, 2024 Dr. Lalo Alcaraz DO Other Provider Active St art: October 31, 2024 Dr. Teresa Johnson MD Other Provider Active Start: October 31, 2024 Dr. Ariana Dietrich MD Other Provider Active St art: October 31, 2024 Dr. Jose Bergeron DO Other Provider Active Start: October 31, 2024 Dr. eHrb Kim MD Other Provider Active Start: October 31, 2024 Dr. Jacky Blackwood MD Other Provider Active Star t: October 31, 2024 Dr. Nancy Wang MD Other Provider Active Start: October 31, 2024 Dr. Elaine Duenas MD Other Provider Active Sta rt: October 31, 2024 Vidhya Byrd COMMUNITY ADVOCATE, COMMUNITY ADVOCATE-C Other Provider Active Start: October 31, 2024 Oriana Correia NP-C Other Provider Active St art: October 31, 2024 Dr. Khai Bose MD Attending Provider Active Start: October 31, 2024 Dr. Khai Bose MD Other Provider Active Sta rt: October 31, 2024 Dr. Gerard Asencio MD Other Provider Active Start: October 31, 2024 STUART Leslie Other Provider Active Start: October Dr. eCce Bella MD Other Provider Active St art: October 31, 2024 Dr. Junito Knowles MD Other Provider Active Start: October 31, 2024 Team Status: Active Member Role/Relationship Status Dates Dr. Dipak Aguilar DO Primary Care Provider Active Start: October 31, 2024 Akira Blanco MD Emergency Provider Active Star t: October 31, 2024 Dr. Fernanda Triplett MD Admit Provider Active St art: October 31, 2024 Dr. Fernanda Triplett MD Other Provider Active St art: October 31, 2024 Dr. Kenn Cavazos MD Other Provider Active St art: October 31, 2024 Dr. Blake Pinzon MD Other Provider Active Start: October 31, 2024 Dr. Woo Rehman MD Other Provider Active Start: October 31, 2024 Dr. Shahriar Pressley MD Other Provider Active Star t: October 31, 2024 Dr. Goran Bowens DO Other Provider Active Start : October 31, 2024 Dr. Ilan Oliver MD Other Provider Active Sta rt: October 31, 2024 Dr. Evert Colby MD Other Provider Active St art: October 31, 2024 Dr. Harrison Garay MD Other Provider Active S tart: October 31, 2024 Dr. Antonette Angeles MD Other Provider Active Start: October 31, 2024 Dr. Camilo Alva MD Other Provider Active Start : October 31, 2024 Dr. Héctor Neri MD Other Provider Active Start: October 31, 2024 Dr. Ameya Smith MD Other Provider Active Start : October 31, 2024 Dr. Beronica Cespedes MD Other Provider Active Star t: October 31, 2024 Dr. Cata Bustillo MD Other Provider Active Sta rt: October 31, 2024 Dr. Stephanie Tariq MD Other Provider Active Sta rt: October 31, 2024 Dr. Jesus Zabala MD Other Provider Active Star t: October 31, 2024 Dr. Jackson Marcum MD Other Provider Active St art: October 31, 2024 Dr. Robi Romeor MD Other Provider Active Star t: October 31, 2024 Dr. Lalo Alcaraz DO Other Provider Active St art: October 31, 2024 Dr. Teresa Johnson MD Other Provider Active Start: October 31, 2024 Dr. Ariana Dietrich MD Other Provider Active St art: October 31, 2024 Dr. Jose Bergeron DO Other Provider Active Start: October 31, 2024 Dr. Herb Kim MD Other Provider Active Start: October 31, 2024 Dr. Jacky Blackwood MD Other Provider Active Star t: October 31, 2024 Dr. Nancy Wang MD Other Provider Active Start: October 31, 2024 Dr. Elaine Duenas MD Other Provider Active Sta rt: October 31, 2024 Vidhya Byrd NP, COMMUNITY ADVOCATE-C Other Provider Active Start: October 31, 2024 Oriana Correia NP-C Other Provider Active St art: October 31, 2024 Dr. Khai Bose MD Other Provider Active Sta rt: October 31, 2024 Dr. Gerard Asencio MD Other Provider Active Start: October 31, 2024 Airam Gottlieb NP-C Other Provider Active Start: October Dr. Cece Bella MD Other Provider Active St art: October 31, 2024 Dr. Junito Knowles MD Other Provider Active Start: October 31, 2024 Kylee FLOYD PA-C Attending Provider Active Start: October 31, 2024 Team Status: Active Member Role/Relationship Status Dates Dr. Dipak Aguilar DO Primary Care Provider Active Start: October 31, 2024 Akira Blanco MD Emergency Provider Active Star t: October 31, 2024 Dr. Fernanda Triplett MD Admit Provider Active St art: October 31, 2024 Dr. Fernanda Triplett MD Other Provider Active St art: October 31, 2024 Dr. Kenn Cavazos MD Other Provider Active St art: October 31, 2024 Dr. Blake Pinzon MD Other Provider Active Start: October 31, 2024 Dr. Woo Rehman MD Other Provider Active Start: October 31, 2024 Dr. Shahriar Pressley MD Other Provider Active Star t: October 31, 2024 Dr. Goran Bowens DO Other Provider Active Start : October 31, 2024 Dr. Ilan Oliver MD Other Provider Active Sta rt: October 31, 2024 Dr. Evert Colby MD Other Provider Active St art: October 31, 2024 Dr. Harrison Garay MD Other Provider Active S tart: October 31, 2024 Dr. Antonette Angeles MD Other Provider Active Start: October 31, 2024 Dr. Camilo Alva MD Other Provider Active Start : October 31, 2024 Dr. Héctor Neri MD Other Provider Active Start: October 31, 2024 Dr. Ameya Smith MD Other Provider Active Start : October 31, 2024 Dr. Beronica Cespedes MD Other Provider Active Star t: October 31, 2024 Dr. Cata Bustillo MD Other Provider Active Sta rt: October 31, 2024 Dr. Stephanie Tariq MD Other Provider Active Sta rt: October 31, 2024 Dr. Jesus Zabala MD Other Provider Active Star t: October 31, 2024 Dr. Jackson Marcum MD Other Provider Active St art: October 31, 2024 Dr. Robi Romero MD Other Provider Active Star t: October 31, 2024 Dr. Lalo Alcaraz DO Other Provider Active St art: October 31, 2024 Dr. Teresa Johnson MD Other Provider Active Start: October 31, 2024 Dr. Ariana Dietrich MD Other Provider Active St art: October 31, 2024 Dr. Jose Bergeron DO Other Provider Active Start: October 31, 2024 Dr. Herb Kim MD Other Provider Active Start: October 31, 2024 Dr. Jacky Blackwood MD Other Provider Active Star t: October 31, 2024 Dr. Nancy Wang MD Other Provider Active Start: October 31, 2024 Dr. Elaine Duenas MD Other Provider Active Sta rt: October 31, 2024 Vidhya Byrd NP, COMMUNITY ADVOCATE-C Other Provider Active Start: October 31, 2024 Oriana Correia NP-C Other Provider Active St art: October 31, 2024 Dr. Khai Bose MD Other Provider Active Sta rt: October 31, 2024 Dr. Gerard Asencio MD Other Provider Active Start: October 31, 2024 Airam Gottlieb NP-C Other Provider Active Start: October Dr. Cece Bella MD Attending Provider Active Start: October 31, 2024 Dr. Cece Bella MD Other Provider Active St art: October 31, 2024 Dr. Junito Knowles MD Other Provider Active Start: October 31, 2024 Team Status: Active Member Role/Relationship Status Dates Dr. Dipak Aguilar DO Primary Care Provider Active Start: October 31, 2024 Akira Blanco MD Emergency Provider Active Star t: October 31, 2024 Dr. Fernanda Triplett MD Admit Provider Active St art: October 31, 2024 Dr. Fernanda Triplett MD Other Provider Active St art: October 31, 2024 Dr. Kenn Cavazos MD Other Provider Active St art: October 31, 2024 Dr. Blake Pinzon MD Other Provider Active Start: October 31, 2024 Dr. Woo Rehman MD Other Provider Active Start: October 31, 2024 Dr. Shahriar Pressley MD Other Provider Active Star t: October 31, 2024 Dr. Goran Bowens DO Other Provider Active Start : October 31, 2024 Dr. Ilan Oliver MD Other Provider Active Sta rt: October 31, 2024 Dr. Evert Colby MD Other Provider Active St art: October 31, 2024 Dr. Harrison Garay MD Other Provider Active S tart: October 31, 2024 Dr. Antonette Angeles MD Other Provider Active Start: October 31, 2024 Dr. Camilo Alva MD Other Provider Active Start : October 31, 2024 Dr. Héctor Neri MD Other Provider Active Start: October 31, 2024 Dr. Ameya Smith MD Other Provider Active Start : October 31, 2024 Dr. Beronica Cespedes MD Other Provider Active Star t: October 31, 2024 Dr. Cata Bustillo MD Other Provider Active Sta rt: October 31, 2024 Dr. Stephanie Tariq MD Other Provider Active Sta rt: October 31, 2024 Dr. Jesus Zabala MD Other Provider Active Star t: October 31, 2024 Dr. Jackson Marcum MD Other Provider Active St art: October 31, 2024 Dr. Robi Romero MD Other Provider Active Star t: October 31, 2024 Dr. Lalo Alcaraz DO Other Provider Active St art: October 31, 2024 Dr. Teresa Johnson MD Other Provider Active Start: October 31, 2024 Dr. Ariana Dietrich MD Other Provider Active St art: October 31, 2024 Dr. Jose Bergeron DO Other Provider Active Start: October 31, 2024 Dr. Herb Kim MD Other Provider Active Start: October 31, 2024 Dr. Jacky Blackwood MD Other Provider Active Star t: October 31, 2024 Dr. Nancy Wang MD Other Provider Active Start: October 31, 2024 Dr. Elaine Duenas MD Other Provider Active Sta rt: October 31, 2024 Vidhya Byrd NP, COMMUNITY ADVOCATE-C Other Provider Active Start: October 31, 2024 Oriana Correia NP-C Other Provider Active St art: October 31, 2024 Dr. Khai Bose MD Other Provider Active Sta rt: October 31, 2024 Dr. Gerard Asencio MD Other Provider Active Start: October 31, 2024 STUART Leslie Attending Provider Active Start: October STUART Leslie Other Provider Active Start: October Dr. Cece Bella MD Other Provider Active St art: October 31, 2024 Dr. Junito Knowles MD Other Provider Active Start: October 31, 2024 Team Status: Active Member Role/Relationship Status Dates Dr. Dipak Aguilar DO Primary Care Provider Active Start: November 01, 2024 Akira Blanco MD Emergency Provider Active Star t: November 01, 2024 Dr. Fernanda Triplett MD Admit Provider Active St art: November 01, 2024 Dr. Fernanda Triplett MD Other Provider Active St art: November 01, 2024 Dr. Kenn Cavazos MD Other Provider Active St art: November 01, 2024 Dr. Gerard Asencio MD Other Provider Active Start: November 01, 2024 Dr. Cece Bella MD Other Provider Active St art: November 01, 2024 Dr. Junito Knowles MD Other Provider Active Start: November 01, 2024 Dr. Genia Scott DO Attending Provider Active S tart: November 01, 2024 Dr. Genia Scott DO Other Provider Active Start : November 01, 2024 Dr. Khai Bose MD Other Provider Active Sta rt: November 01, 2024 Team Status: Active Member Role/Relationship Status Dates Dr. Dipak Aguilar DO Primary Care Provider Active Start: November 01, 2024 Akira Blanco MD Emergency Provider Active Star t: November 01, 2024 Dr. Fernanda Triplett MD Admit Provider Active St art: November 01, 2024 Dr. Fernanda Triplett MD Other Provider Active St art: November 01, 2024 Dr. Kenn Cavazos MD Other Provider Active St art: November 01, 2024 Dr. Gerard Asencio MD Other Provider Active Start: November 01, 2024 Dr. Cece Bella MD Other Provider Active St art: November 01, 2024 Dr. Junito Knowles MD Other Provider Active Start: November 01, 2024 Dr. Genia Scott DO Other Provider Active Start : November 01, 2024 Dr. Khai Bose MD Other Provider Active Sta rt: November 01, 2024 Kylee FLOYD PAKeithC Attending Provider Active Start: November 01, 2024 Team Status: Active Member Role/Relationship Status Dates Dr. Dipak Aguilar DO Primary Care Provider Active Start: November 02, 2024 Akira Blanco MD Emergency Provider Active Star t: November 02, 2024 Dr. Fernanda Triplett MD Admit Provider Active St art: November 02, 2024 Dr. Fernanda Triplett MD Other Provider Active St art: November 02, 2024 Dr. Genia Scott DO Attending Provider Active S tart: November 02, 2024 Dr. Genia Scott DO Other Provider Active Start : November 02, 2024 Dr. Khai Bose MD Other Provider Active Sta rt: November 02, 2024 Dr. Cece Bella MD Other Provider Active St art: November 02, 2024 Dr. Kenn Cavazos MD Other Provider Active St art: November 02, 2024 Dr. Junito Knowles MD Other Provider Active Start: November 02, 2024 Dr. Gerard Asencio MD Other Provider Active Start: November 02, 2024 Team Status: Active Member Role/Relationship Status Dates Dr. Dipak Aguilar DO Primary Care Provider Active Start: November 03, 2024 Akira Blanco MD Emergency Provider Active Star t: November 03, 2024 Dr. Fernanda Triplett MD Admit Provider Active St art: November 03, 2024 Dr. Fernanda Triplett MD Other Provider Active St art: November 03, 2024 Dr. Genia Scott DO Attending Provider Active S tart: November 03, 2024 Dr. Genia Scott DO Other Provider Active Start : November 03, 2024 Dr. Khai Bose MD Other Provider Active Sta rt: November 03, 2024 Dr. Cece Bella MD Other Provider Active St art: November 03, 2024 Dr. Kenn Cavazos MD Other Provider Active St art: November 03, 2024 Dr. Junito Knowles MD Other Provider Active Start: November 03, 2024 Dr. Gerard Asencio MD Other Provider Active Start: November 03, 2024 Team Status: Active Member Role/Relationship Status Dates Dr. Dipak Aguilar DO Primary Care Provider Active Start: November 04, 2024 Akira Blanco MD Emergency Provider Active Star t: November 04, 2024 Dr. Fernanda Triplett MD Admit Provider Active St art: November 04, 2024 Dr. Fernanda Triplett MD Other Provider Active St art: November 04, 2024 Dr. Genia Scott DO Attending Provider Active S tart: November 04, 2024 Dr. Genia Scott DO Other Provider Active Start : November 04, 2024 Dr. Khai Bose MD Other Provider Active Sta rt: November 04, 2024 Dr. Cece Bella MD Other Provider Active St art: November 04, 2024 Dr. Kenn Cavazos MD Other Provider Active St art: November 04, 2024 Dr. Junito Knowles MD Other Provider Active Start: November 04, 2024 Dr. Gerard Asencio MD Other Provider Active Start: November 04, 2024 Team Status: Active Member Role/Relationship Status Dates Dr. Dipak Aguilar DO Primary Care Provider Active Start: November 05, 2024 Akira Blanco MD Emergency Provider Active Star t: November 05, 2024 Dr. Fernanda Triplett MD Admit Provider Active St art: November 05, 2024 Dr. Fernanda Triplett MD Other Provider Active St art: November 05, 2024 Dr. Khai Bose MD Other Provider Active Sta rt: November 05, 2024 Dr. Cece Bella MD Other Provider Active St art: November 05, 2024 Dr. Kenn Cavazos MD Other Provider Active St art: November 05, 2024 Dr. Junito Knowles MD Other Provider Active Start: November 05, 2024 Dr. Gerard Asencio MD Other Provider Active Start: November 05, 2024 Dr. Ilan Contreras MD Attending Provider Active Start: November 05, 2024 Dr. Ilan Contreras MD Other Provider Active Star t: November 05, 2024 Dr. Genia Scott DO Other Provider Active Start : November 05, 2024 Team Status: Active Member Role/Relationship Status Dates Dr. Dipak Aguilar DO Primary Care Provider Active Start: November 06, 2024 Akira Blanco MD Emergency Provider Active Star t: November 06, 2024 Dr. Fernanda Triplett MD Admit Provider Active St art: November 06, 2024 Dr. Fernanda Triplett MD Other Provider Active St art: November 06, 2024 Dr. Khai Bose MD Other Provider Active Sta rt: November 06, 2024 Dr. Cece Bella MD Other Provider Active St art: November 06, 2024 Dr. Kenn Cavazos MD Other Provider Active St art: November 06, 2024 Dr. Junito Knowles MD Other Provider Active Start: November 06, 2024 Dr. Gerard Asencio MD Other Provider Active Start: November 06, 2024 Dr. Ilan Contreras MD Other Provider Active Star t: November 06, 2024 Dr. Genia Scott DO Other Provider Active Start : November 06, 2024 Kylee FLOYD PA-C Attending Provider Active Start: November 06, 2024 Team Status: Active Member Role/Relationship Status Dates Dr. Dipak Aguilar DO Primary Care Provider Active Start: November 06, 2024 Akira Blanco MD Emergency Provider Active Star t: November 06, 2024 Dr. Fernanda Triplett MD Admit Provider Active St art: November 06, 2024 Dr. Fernanda Triplett MD Other Provider Active St art: November 06, 2024 Dr. Khai Bose MD Other Provider Active Sta rt: November 06, 2024 Dr. Cece Bella MD Other Provider Active St art: November 06, 2024 Dr. Kenn Cavazos MD Other Provider Active St art: November 06, 2024 Dr. Junito Knowles MD Other Provider Active Start: November 06, 2024 Dr. Gerard Asencio MD Other Provider Active Start: November 06, 2024 Dr. Ilan Contreras MD Attending Provider Active Start: November 06, 2024 Dr. Ilan Contreras MD Other Provider Active Star t: November 06, 2024 Dr. Genia Scott DO Other Provider Active Start : November 06, 2024 Reason for Visit (unrecogniz ed section [...] Comments Pre-Op Exam Reason Onset Date Comments Computerized Table Cutter - Hospital Follow Up 08/05/2022 Reason Comments Catheter Removal Reason Comments CARD Follow Up Annual Reason Comments Medication Problem Reason Comments Urinary Frequency Nocturia Difficulty Urinating Reason Comments requesting a GI referral Reason Onset Date Comments Computerized Table Cutter - Hospital Follow Up 10/20/2022 Reason Comments ISC Teaching Reason Comments Refill Request Reason Onset Date Comments ACM HERMINIO RN 05/02/[address] of [...] activity tolerance Productive cough Procedures LUNG VOLUMES Elisa Garcia, ADVERTISING COPYWRITER.TERMINAL COMPUTER OPERATOR [address] [place] [address] [facility] [place] [address] [place] [address] Referral ID Status Reason Start Date Expiration Date V isits Requested Visits Authorized [id number] Closed Auto-Generate d Referral 11/29/2023 12/28/2024 1 1 Specialty Diagnoses / Procedures Referred By Contac t Referred To Contact [facility] Diagnoses Wheezing Asthma-COPD overlap syndrome (HCC) SOB (shortness of breath) on exertion Decreased activity tolerance Productive cough Procedures SPIROMETRY - BASELINE AND POST DILATOR BRNCDILAT RSPSE SPMTRY PRE&POST-BRNCDILAT ADMN Elisa Garcia, ADVERTISING COPYWRITER.TERMINAL COMPUTER OPERATOR [address] [place] [address] Res[facility] [place] [address] [place] [address] Referral ID Status Reason Start Date Expiration Date V isits Requested Visits Authorized [id number] Closed Auto-Generate d Referral 11/29/2023 12/28/2024 [address] Specialty Diagnoses / Procedures Referred By Contac t Referred To Contact CT IMAGING Diagnoses Wheezing Asthma-COPD overlap syndrome (HCC) SOB (shortness of breath) on exertion Decreased activity tolerance Productive cough Procedures CT CHEST WO IVCON DIAGNOSTIC COMPUTED TOMOGRAPHY THORAX W/O CNTRST Elisa Garcia, ADVERTISING COPYWRITER.TERMINAL COMPUTER OPERATOR [address] [place] [address] [place] [address] Referral ID Status Reason Start Date Expiration Date V isits Requested Visits Authorized [id number] Closed Auto-Generate d Referral 11/29/2023 12/28/2024 1 1 Reason Comments Radiology [place] Specialty Diagnoses / Procedures Referred By Contac t Referred To Contact [facility] Diagnoses Shortness of breath Procedures NM CARDIAC PERF STRESS/EXERCISE MYOCARDIAL SPECT MULTIPLE STUDIES Analisa Nicole MD [address], [address] [place] [address] Molecular [facility] Functional Imaging [address] [id number] Referral ID Status Reason Start Date Expiration Date V isits Requested Visits Authorized [id number] Closed Auto-Generate d Referral 09/26/2023 10/11/2024 1 1 Reason Comments Results Appointment Reason Comments Cardiac Clearance Reason Comments needs referral for pt and ot and uology referral Reason Comments Fax over last OV Note Reason Comments Home Health Nursing-Plan of Care And phy sical therapy plan of care Hypertension Reason Comments Follow Up [facility] leg swelling and elevated BP Reason Onset Date Comments Refill Request 05/30/2024 Reason Comments Med Change Request Reason Comments FILM REQ-HARPSTER Reason Comments BP Check Reason Comments Follow Up one year follow up Reason Comments F/U 3 Month Reason Comments New Patient Referred by Dr Nancy neff Specialty Diagnoses / Procedures Referred By Enrrique toussaint Referred To Contact Neurology Diagnoses Hospital discharge follow-up Confusion Cerebrovascular accident (CVA), unspecified mechanism (HCC) Procedures CONSULT TO NEUROLOGY OFFICE/OUTPATIENT NEW HIGH MDM 60 MINUTES Radha Berman, ADVERTISING COPYWRITER.TERMINAL COMPUTER OPERATOR [address] [place] [address] Phone: tel: fax: Referral ID Status Reason Start Date Expiration Date V isits Requested Visits Authorized [id number] Closed PCP Requested Referral 05/16/2024 05/16/2025 1 [...] BE BASED ON THE PRIMARY CLINICAL RECORDS. [employer] provides no warranty or guarantee of the accuracy or completeness of information in this document.
[2024-11-06] MEDS: MELATONIN 10 MG TABLET PO (23:41)
[2024-11-06] MEDS: Ensure Plus High Protein 120 ML LIQUID PO (23:41)
[2024-11-06] MEDS: APIXABAN 5 MG TABLET PO (23:41)
[2024-11-06] MEDS: Senna/Docusate Sodium 1 Tablet 2 TABLET PO (23:42)
[2024-11-07 05:00] VITALS: BP 118/70; PULSE 86; RESP 18; TEMP 36.4; O2SAT 98
--- NOTE | 2024-11-07 05:09 | NURSING ---
Pt up most of the night pulling sheets off, taking gown off. Patient wanted back scratched multiple times. Nurse administered tylenol prn, pt still restless. was agitated due to nobody watching cameras 13/09, advised we do keep a close eye on camera but aides/ nurses have to answer call lights and see about other patients
[2024-11-07] MEDS: Albuterol IH (6.7 GM) 1 PUFF INHALER INHALATION ×2 (06:42→19:23)
[2024-11-07 07:00] VITALS: PULSE 75; RESP 18; O2SAT 98
[2024-11-07] MEDS: Budesonide Respules 0.5 MG/2 ML AMPUL.NEB. INHALATION (07:00)
[2024-11-07] MEDS: Ipratropium 0.5 MG/2.5 ML SOLUTION INHALATION (07:00)
[2024-11-07 07:33] LABS: Hematocrit 39.0 % (40-54); Hemoglobin 12.9 g/dL (13.0-16.5); Immature Granulocytes Count 0.680 X10^3/uL (0.0-0.0); Mean Corp Hgb Conc 33.1 g/dL (32-36); Mean Corpuscular Volume 89.2 fL (80-94); Mean Platelet Vol. 10.0 fl (6.2-12.0); NRBC Flagged by Analyzer 0 % (0-5); Platelet Count 257 K/mm3 (150-450); RBC Distribution Width CV 15.8 % (11.6-14.6); RBC Distribution Width SD 49.5 fl (35.1-43.9); Red Blood Count 4.37 M/mm3 (4.6-6.2); White Blood Count 14.0 K/mm3 (4.4-11.0)
[2024-11-07 07:48] LABS: Anion Gap 11 (5-15); BUN 16 mg/dL (4-19); BUN/Creat Ratio 11.8 RATIO (10-20); Calcium,Total 9.1 mg/dL (7.6-11.0); Carbon Dioxide 27.8 mmol/L (21.0-32.0); Chloride 102 mmol/L (98-108); Estimated Creatinine Clearance 44.82 ml/min (50-250); Glucose 101 mg/dL (70-99); Potassium 3.1 mmol/L (3.3-5.1)
[2024-11-07] MEDS: Magnesium Chloride 64 MG Delay Rel.Tablet PO (08:10)
[2024-11-07] MEDS: APIXABAN 5 MG TABLET PO ×2 (08:10→21:18)
[2024-11-07] MEDS: Senna/Docusate Sodium 1 Tablet 2 TABLET PO ×2 (08:20→21:25)
[2024-11-07] MEDS: FLUTICASONE/UMECLIDIN/VILANTER 1 EACH BLST.W.DEV INHALATION (11:15)
--- NOTE | 2024-11-07 12:14 | NURSING ---
Animal Cop Note; Activity Asset: Ruby Ingram needs reminders of daily activities, is independent in his choices. He stated he prefers to do in room independent activities at this time and mostly rest. He prefers not to see the red hat linux engineer however welcomes visits from the therapy dog. His will be in daily and will bring him items he may need. Staff will remind him of weekly activities and respect his right to say no.
[2024-11-07 13:06] VITALS: BP 128/71; PULSE 81; RESP 19; TEMP 36.4; O2SAT 95
[2024-11-07 13:59] VITALS: O2SAT 99
[2024-11-07] MEDS: Tuberculin,Purif.prot.deriv. 50 TU/ML Vial 0.1 ML ID (14:09)
[2024-11-07] MEDS: Ensure Plus High Protein 120 ML LIQUID PO ×2 (14:09→21:27)
--- NOTE | 2024-11-07 16:17 | PCM.PN.DRR ---
Documented by User: Nessa Tinoco 11/07/24 17:06 TCU RX Drug Regimen Review Subjective/Objective Subjective/Objective Subjective: TCU Admission. 89 YOM presented to the ER with nausea and vomiting. Hospitalized for sepsis 2/2 acute cholecystitis treated with cholecystostomy tube, acute respiratory failure with hypoxia 2/2 aspiration pneumonia 2/2 dysphagia, complicated by encephalopathy, acute on chronic HFpEF, atrial fibrillation with RVR. Admitted to TCU with debility for strengthening and rehabilitation. Objective: Allergies No Known Allergies Allergy (Verified 10/26/24 16:44) Current Medications Generic Name Dose Route Start Last Admin Trade Name Freq PRN Reason Stop Dose Admin Acetaminophen 1,000 mg 11/06/24 20:44 11/07/24 01:10 Acetaminophen 500 Mg Tablet PO 1,000 mg Q6H PRN PRN Administration Pain Score 1-10 Albuterol Sulfate 1 puff 11/07/24 07:50 Albuterol Ih (6.7 Gm) 1 Puff Inhaler INHALATION 0500,1100,1700,2300 PRN SOB &/OR WHEEZING Amiodarone HCl 200 mg 11/06/24 22:00 11/07/24 14:11 Amiodarone 200 Mg Tablet PO 11/07/24 22:00 200 mg TID SOLEDAD Administration Amiodarone HCl 200 mg 11/08/24 10:00 Amiodarone 200 Mg Tablet PO 11/14/24 22:00 BID SOLEDAD Amiodarone HCl 200 mg 11/15/24 10:00 Amiodarone 200 Mg Tablet PO DAILY SOLEDAD Apixaban 5 mg 11/06/24 22:00 11/07/24 08:10 Apixaban 5 Mg Tablet PO 5 mg BID SOLEDAD Administration Atorvastatin Calcium 40 mg 11/07/24 10:00 11/07/24 08:10 Atorvastatin Calcium 40 Mg Tablet PO 40 mg DAILY SOLEDAD Administration Calamine/Phenol 1 applic 11/06/24 22:00 11/07/24 08:09 Menthol/Lanolin/Calamine/Znox 113 Gm Tube TOPICAL 1 applic BID SOLEDAD Administration Protocol Cefdinir 300 mg 11/06/24 22:00 11/07/24 08:11 Cefdinir 300 Mg Capsule PO 11/09/24 10:01 300 mg BID SOLEDAD Administration Furosemide 40 mg 11/06/24 14:28 Furosemide 40 Mg Tablet PO DAILY PRN swelling Protocol Guaifenesin 1,200 mg 11/06/24 22:00 11/07/24 08:11 Guaifenesin 1,200 Mg Tablet PO 11/13/24 10:01 1,200 mg BID SOLEDAD Administration Hydralazine HCl 25 mg 11/06/24 14:30 Hydralazine 25 Mg Tablet PO BID PRN SEE INSTRUCTIONS Protocol Lorazepam 0.5 mg 11/07/24 07:46 Lorazepam 0.5 Mg Tablet PO Q4H PRN PRN ANXIETY/RESTLESSNESS/SLEEP Magnesium Chloride 64 mg 11/07/24 10:00 11/07/24 08:10 Magnesium Chloride 64 Mg Delay Rel.Tablet PO 64 mg DAILY SOLEDAD Administration Magnesium Citrate 300 ml 11/06/24 20:58 Magnesium Citrate 300 Ml PO DAILY PRN CONSTIPATION Melatonin 10 mg 11/06/24 22:00 11/06/24 23:41 Melatonin 10 Mg Tablet PO 10 mg QHS SOLEDAD Administration Metformin HCl 500 mg 11/06/24 17:00 11/07/24 08:08 Metformin Hcl 500 Mg Tablet PO 500 mg BIDCM SOLEDAD Administration Metronidazole 500 mg 11/06/24 22:00 11/07/24 14:11 Metronidazole 500 Mg Tablet PO 11/09/24 22:01 500 mg TID SOLEDAD Administration Nutritional Formula (Lactose Free) 120 ml 11/06/24 22:00 11/07/24 14:09 Ensure Plus High Protein 120 Ml Liquid PO 120 ml TID SOLEDAD Administration Nystatin 1 applic 11/06/24 22:00 11/07/24 11:14 Nystatin Powder 15gm Bottle TOPICAL 1 applic BID SOLEDAD Administration Protocol Pantoprazole Sodium 20 mg 11/07/24 10:00 11/07/24 08:11 Pantoprazole Sodium 20 Mg Tablet PO 20 mg DAILY SOLEDAD Administration Risperidone 0.5 mg 11/06/24 22:00 11/06/24 23:42 Risperidone 0.5 Mg Tablet PO 11/13/24 22:01 0.5 mg QHS SOLEDAD Administration Protocol Risperidone 0.25 mg 11/14/24 22:00 Risperidone 0.25 Mg Tablet PO 11/21/24 22:01 QHS SOLEDAD Protocol Senna/Docusate Sodium 2 tablet 11/06/24 22:00 11/07/24 08:20 Senna/Docusate Sodium 1 Tablet PO 2 tablet BID SOLEDAD Administration Sodium Chloride 2 spray 11/06/24 14:33 Sodium Chloride 0.65% 1 [place] Phoenix.Btl NASAL BID PRN nasal congestion Tuberculin PPD 0.1 ml 11/14/24 10:00 Tuberculin,Purif.Prot.Deriv. 50 Tu/Ml Vial ID 11/14/24 10:01 X1 ONE Problem List Acute on chronic heart failure with preserved ejection fraction (HFpEF) (Acute) Hyperlipidemia (Acute) Type 2 diabetes mellitus with hyperglycemia (Acute) Asthma (Acute) Vitamin D deficiency (Acute) GERD (gastroesophageal reflux disease) (Acute) Dysphagia (Acute) Aspiration pneumonia (Acute) Encephalopathy (Acute) Acute respiratory failure with hypoxia (Acute) Debility (Acute) Sepsis (Acute) Essential hypertension (Acute) Acute cholecystitis (Acute) Atrial fibrillation with RVR (Acute) Vital Signs Temp Pulse Resp BP Pulse Ox O2 Del Method O2 Flow Rate 97.6 F L 81 19 H 128/71 H 99 Room Air 2 11/07/24 13:06 11/07/24 13:06 11/07/24 13:06 11/07/24 13:06 11/07/24 13:59 11/07/24 13:06 11/07/24 14:18 Oxygen Flow Rate (L/min) 2 Oxygen Delivery Method Room Air Weight: 96.162 kg Body Mass Index (BMI) 28.7 Sodium 141 mmol/L (133-145) 11/07/24 07:11 Potassium 3.1 mmol/L (3.3-5.1) L 11/07/24 07:11 Chloride 102 mmol/L (98-108) 11/07/24 07:11 Carbon Dioxide 27.8 mmol/L (21.0-32.0) 11/07/24 07:11 Anion Gap 11 (5-15) 11/07/24 07:11 BUN 16 mg/dL (4-19) 11/07/24 07:11 Creatinine 1.37 mg/dL (0.70-1.20) H 11/07/24 07:11 Est GFR (MDRD) Non-Af 50 (>60) L 11/07/24 07:11 BUN/Creatinine Ratio 11.8 RATIO (10-20) 11/07/24 07:11 Glucose 101 mg/dL (70-99) H 11/07/24 07:11 Assessment/Plan: 1. Pain: acetaminophen 1000mg PO Q6H PRN pain 1-10. Resident has had 1 dose of Tylenol, per MAR, not given for pain. Please continue to monitor for PRN usage and increased pain. 2. Bowel: senna/docusate 2T PO BID and magnesium citrate 300mL PO daily PRN constipation. Resident has no received prn doses since admission. Last document bowel movement:11/05/24. Monitor for usage of prn medications, abdominal pain, frequency of bowel movements, diarrhea. Recommend holding bowel regimen if resident develops diarrhea. 3. Cholecystis/aspiration pneumonia: cefdinir 300mg PO BID thru 11/09/24 and metronidazole 500mg PO TID thru 11/09/24. Please continue to monitor for S/S of infection, diarrhea, stool discoloration. Cefdinir is renally dose medication. CrCl estimated = 44 ML. Dose appropriate for current renal function. Monitor serum creatine periodically. 4. Atrial fibrillation/chronic HFpEF: amiodarone 200mg PO TID thru 11/07/24 then 200mg PO BID 11/08-11/14 then 200mg daily thereafter, apixaban 5mg PO BID, furosemide 40mg PO daily PRN edema, hydralazine 25mg PO BID PRN blood pressure. No PRN doses have been given. Please continue to monitor BP (range 114/66-128/71), HR (range 68-86), sodium (last 141mmol/L), potassium (last 3.1mmol/L), S/S of bleeding, hemoglobin (last 12.9g/dL). 5. Asthma: albuterol MDI 1 puff 4x/day PRN SOB/wheezing and Trelegy 1 puff daily. No PRN doses given. Please continue to monitor for PRN usage, HR, thrush. Please rinse mouth with water and spit to prevent thrush. 6. Congestion: guaifenesin 1200mg PO BID. Please continue to monitor for congestion. 7. Hyperlipidemia: atorvastatin 40mg PO QHS. Please consider ordering a lipid panel as the last panel is from 09/2023. Thanks. Please continue to monitor LFTs (11/04/24) and muscle pain. 8. Diabetes Mellitus II: metformin 500mg PO BIDCM. Please continue to monitor hemoglobin A1c (last 6.3% 10/29/24), glucose (last 101mg/dL), diarrhea and GFR (last 50mL/min). 9. GERD: pantoprazole 20mg PO daily. Monitor for diarrhea (consider possibility of C. diff if develops). Consider serum magnesium level and B12 level with long-term use if indicated. If clinically appropriate, consider dose reduction/weaning of medication due to longterm risks of C. diff and fractures ([place]). 10. Dry nose: [place] nasal spray 2 sprays nasal BID PRN nasal congestion. No PRN doses given. Please continue to monitor for congestion and PRN usage. 11. Hypomagnesemia: magnesium chloride 64mg PO daily. Please continue to monitor magnesium (last 1.7mg/dL 11/03/24). 12. Insomnia: melatonin 10mg PO QHS. Please continue to monitor for excessive daytime drowsiness. 13. Skin irritation/Tinea Corporis Calmoseptine topical bid and Nystatin powder topical bid. Please continue to monitor. Assessment/Plan for indications treated with psychotropic medications: 1. Sundowning: risperidone 0.5mg PO QHS thru 11/13/24 then 0.25mg 11/14-11/21. GDR initiated. Monitor for drowsiness, dizziness or confusion, mental status, seizures. Monitor for constipation, urinary retention, dry mouth and blurred vision. Monitor for abnormal movements/movement disorders (including tremor, akathisia, dyskinesia, acute dystonia). Monitor for neuroleptic malignant syndrome (fever, muscle rigidity, mental status changes and hemodynamic instability). Monitor for orthostatic hypotension, including postural dizziness, syncope or falls. Implement fall prevention strategies. Check orthostatic vital signs if suspicion of orthostasis. Monitor for weight gain and check fasting lipid profile and fasting glucose or HbA1c as indicated (recommended baseline and annually). FLP =09/2023; HbA1c = 6.3% 10/29/24 QTc on last ECG = 469ms 11/03/24. Monitor for efficacy including resident symptoms, behaviors and indications of distress. Monitor for tolerability including mental status, cognition, excessive sleepiness, withdrawal or decreased participation in activities and decline in physical functioning. Maximize use of nonpharmacologic/behavioral interventions to facilitate dose reduction or discontinuation as appropriate. 2. Anxiety/restlessness/sleep: lorazepam 0.5mg PO Q4H PRN anxiety/restlessness/sleep. No PRN doses given. GDR not appropriate as this medication is new. Monitor for sedation, mental status and cognition. Monitor for falls (risk factor for falls) and implement fall prevention strategies. Monitor for respiratory depression. RR range since admission = 68-86. Monitor prn usage and efficacy of prn doses including resident symptoms, behaviors and indications of distress. Monitor for tolerability including mental status, cognition, excessive sleepiness, withdrawal or decreased participation in activities and decline in physical functioning. Maximize use of nonpharmacologic/behavior interventions to minimize use of prn medication. Prn psychotropic order must be renewed at 14 days per policy. Evaluate continued need for medication, effect of prn medication on resident’s symptoms/distress and tolerability to determine the appropriateness of order renewal. Medical chart and medication regimen reviewed. The following medication irregularities or issues were identified: 1. Atorvastatin 40mg PO QHS. Please consider ordering a lipid panel as the last panel is from 09/2023. Thanks. Date Date of Note: 11/07/24 Documented by User: Dr. Brandon Black MD 11/07/24 17:07 TCU RX Drug Regimen Review Provider Comments Provider responsibility Provider Comments to Recommendations by Pharmacy Agree
[2024-11-07 21:07] VITALS: BP 140/70; PULSE 88; RESP 20; TEMP 36.6; O2SAT 96
[2024-11-07] MEDS: MELATONIN 10 MG TABLET PO (21:14)
[2024-11-08 06:30] VITALS: BP 135/82; PULSE 82; RESP 18; TEMP 37; O2SAT 94
[2024-11-08 08:00] VITALS: BP 148/82; PULSE 93; RESP 16; TEMP 36.6
--- NOTE | 2024-11-08 08:30 | NURSING ---
Addendum entered by Mattie Baptiste 11/08/24 18:18: around 1030 this nurse was able to get pt to wake up. patient states he was just really tired. by noon pt was awake and oriented. pt states he normally wakes up around 3am and stays up for awhile and is difficult to wake up from a nap Original Note: is concerned that pt will not wake up. this nurse tried to get pt to wake up-pt willing to open eyes just for a moment then went right back to sleep- vitals taken- WNL states pt was up at [id number]. said pt slept better last not and did not make the comment that he was dying and other things he has been saying to her- Checked BS- 100. RN toñito came to room- did sternal rub- pt responded but went right back to sleep- pt trying to get pt to have breakfast upon leaving room- pt still does not want to wake up- pt states he is tired and wants to be left alone
[2024-11-08 08:41] LABS: Cholesterol 45 mg/dL (<=200); Low Density Lipoprotein Calc. 13 mg/dL; Triglycerides 84 mg/dL; Very Low Density Lipoprotein 17 mg/dL (5-40); cholesterol:hdl ratio screen 2.91
[2024-11-08] MEDS: Potassium Chloride Oral Soln 20 MEQ/15 ML UDC 40 MEQ PO (09:54)
[2024-11-08] MEDS: APIXABAN 5 MG TABLET PO ×2 (10:03→20:26)
[2024-11-08] MEDS: FLUTICASONE/UMECLIDIN/VILANTER 1 EACH BLST.W.DEV INHALATION (10:03)
[2024-11-08] MEDS: Magnesium Chloride 64 MG Delay Rel.Tablet PO (10:03)
[2024-11-08] MEDS: Senna/Docusate Sodium 1 Tablet 2 TABLET PO ×2 (10:10→20:40)
--- NOTE | 2024-11-08 14:15 | CASEMGMT ---
Social Work SW met with patient to complete initial assessment. Introduced self and role. Verified contacts. SW verified code status, though, answered "yes" to full code prior to pt answering yes. SW plans to revisit alone with pt to ensure it is pt's wishes. Throughout assessment, answered questions for pt and this worker redirected to pt focus several times. is very attentive to pt's needs at home and detailed-oriented, and defensive with any questioning. 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 SW observed pt likely has some cognitive impairment. SW educated to [facility] insurance with [employer] 11/14 and continued stay is not guaranteed with each review. voiced understanding to the insurance review process from a previous rehab stay from pt. Pt's goal is to return home with . Pt complimented this worker's appearance, questioned personal information, and inquired about specifics of this worker's role, though pleasant and cooperative. SW will continue to follow for DC planning and support. Kristi Murillo APPLICATIONS SALES CONSULTANT [employer]MER [employer]
[2024-11-08] MEDS: Ensure Plus High Protein 120 ML LIQUID PO ×2 (14:17→20:26)
[2024-11-08 15:35] VITALS: O2SAT 94
[2024-11-08 19:53] VITALS: O2SAT 97
[2024-11-08 20:23] VITALS: BP 136/89; PULSE 92
[2024-11-08] MEDS: MELATONIN 10 MG TABLET PO (20:26)
[2024-11-09] MEDS: Ensure Plus High Protein 120 ML LIQUID PO ×3 (05:16→20:55)
[2024-11-09 07:08] VITALS: O2SAT 93
[2024-11-09 08:48] VITALS: BP 164/94; PULSE 105; RESP 16; TEMP 37; O2SAT 94
[2024-11-09] MEDS: Potassium Chloride Oral Tablet 20 MEQ PO (08:51)
[2024-11-09] MEDS: FLUTICASONE/UMECLIDIN/VILANTER 1 EACH BLST.W.DEV INHALATION (08:51)
[2024-11-09] MEDS: Magnesium Chloride 64 MG Delay Rel.Tablet PO (08:52)
[2024-11-09] MEDS: APIXABAN 5 MG TABLET PO ×2 (08:52→21:02)
[2024-11-09 09:42] LABS: Anion Gap 12 (5-15); BUN 14 mg/dL (4-19); BUN/Creat Ratio 10.8 RATIO (10-20); Calcium,Total 9.6 mg/dL (7.6-11.0); Carbon Dioxide 25.8 mmol/L (21.0-32.0); Chloride 106 mmol/L (98-108); Estimated Creatinine Clearance 47.97 ml/min (50-250); Glucose 111 mg/dL (70-99); Potassium 3.7 mmol/L (3.3-5.1)
[2024-11-09 10:42] VITALS: PULSE 105
[2024-11-09] MEDS: Senna/Docusate Sodium 1 Tablet 2 TABLET PO ×2 (10:42→21:17)
[2024-11-09 13:29] VITALS: BP 135/69; PULSE 85
[2024-11-09 17:04] VITALS: O2SAT 97
[2024-11-09 20:52] VITALS: BP 141/91; PULSE 99; O2SAT 95
[2024-11-09] MEDS: MELATONIN 10 MG TABLET PO (21:01)
[2024-11-10] VITALS (7 sets, daily range): BP systolic 130–143; BP diastolic 67–90; PULSE 89–136; RESP 18–20; TEMP 36.4–36.8; O2SAT 92–98
[2024-11-10] MEDS: Ensure Plus High Protein 120 ML LIQUID PO ×2 (03:57→21:27)
[2024-11-10 07:22] LABS: Anion Gap 11 (5-15); BUN 14 mg/dL (4-19); BUN/Creat Ratio 11.5 RATIO (10-20); Calcium,Total 9.3 mg/dL (7.6-11.0); Carbon Dioxide 25.5 mmol/L (21.0-32.0); Chloride 105 mmol/L (98-108); Estimated Creatinine Clearance 52.48 ml/min (50-250); Glucose 119 mg/dL (70-99); Potassium 3.9 mmol/L (3.3-5.1)
[2024-11-10] MEDS: APIXABAN 5 MG TABLET PO ×2 (09:51→21:27)
[2024-11-10] MEDS: Potassium Chloride Oral Tablet 20 MEQ PO (09:51)
[2024-11-10] MEDS: Magnesium Chloride 64 MG Delay Rel.Tablet PO (09:51)
[2024-11-10] MEDS: FLUTICASONE/UMECLIDIN/VILANTER 1 EACH BLST.W.DEV INHALATION (09:51)
--- NOTE | 2024-11-10 12:17 | PCA ---
when javi faye and i had finnshed washing pt up his had requested that pt is up into reclinder dominic manrique , after we finnished passing lunch trays yunier and i had walked back into pt room at 1205 and before we could even step into the door way his say us and said " stop we are fine , we are gonna do everything as he is now "
--- NOTE | 2024-11-10 16:45 | NURSING ---
entered room to administer meds, pt stated he was cold- shivering noted of pt hands/arms. pt afebrile. sat 88% on room air, oxygen reapplied 2 liters via NC. pt at bedside and stated "I am sorry, I was asleep and didn't notice" states pt was not on oxygen at home but has been since in hospital. sat came up to 91-93%. will update dr pereira. SOLAR TECHNICIAN's reported that pt daughter was feeding pt [employer] ice cream cake after lunch today.
--- NOTE | 2024-11-10 17:11 | EKG12_ITS ---
Test Reason : DYSRHYTHMIA Blood Pressure : */* mmHG Vent. Rate : 89 BPM Atrial Rate : 89 BPM P-R Int : 196 ms QRS Dur : 134 ms QT Int : 426 ms P-R-T Axes : 41 90 -23 degrees QTcB Int : 518 ms Sinus rhythm with Premature atrial complexes Right bundle branch block Septal infarct , age undetermined T wave abnormality, consider inferior ischemia Abnormal ECG Confirmed by KALE GALDAMEZ, SVETA ([id number]), medical transcription editor MIGUEL STRAUSS ([id number]) on 11/12/2024 8:28:19 AM Referred By: Brandon Black Confirmed By: SVETA HENLEY MD
--- NOTE | 2024-11-10 17:26 | NURSING ---
Addendum entered by Jordyn Dee 11/10/24 17:42: dr pereira returned call, send to ER for possible pneumonia Original Note: pt c/o being cold, shivering. HR elevated 130's. EKG obtained showing AFIB RVR, paged dr pereira. awaiting return call.
[2024-11-10] MEDS: MELATONIN 10 MG TABLET PO (21:26)
--- NOTE | 2024-11-10 23:16 | NURSING ---
Patient returned from ED at 2103. Family at bedside.
[2024-11-11 01:30] VITALS: PULSE 79; O2SAT 89
[2024-11-11 01:32] VITALS: PULSE 81; O2SAT 95
--- NOTE | 2024-11-11 07:30 | NURSING ---
Patient having moist, productive cough; this nurse did not visualize sputum to note characteristics. Rhonchi noted in bilateral lower lungs. Dr. Black made aware. New orders for chest x-ray and IV antibiotics. Patient and family made aware of new orders.
--- NOTE | 2024-11-11 07:30 | NURSING ---
PT OFF UNIT TO XRAY
--- NOTE | 2024-11-11 07:40 | RAD_ITS ---
PROCEDURE: CHEST PA AND LATERAL 11/11/2024 REASON FOR EXAM: SOB/RHONCHI TECHNIQUE: Procedure Code: RADCXR Modality: DX Procedure: CHEST PA AND LATERAL COMPARISON: 11/02/2024 FINDINGS: LINES: Interval removal of the previously identified right PICC line. Pigtail drainage catheter in the right upper abdomen. LUNGS AND PLEURA: Mild worsening of lung opacities bilaterally. There is mild blunting of the left costophrenic angle. No pneumothorax. HEART AND MEDIASTINUM: The cardiac silhouette is mildly enlarged. The mediastinal contour is normal. BONES: No acute osseous abnormality. Suture anchors in the right humeral head. RAD/Chest PA and Lateral IMPRESSION: 1. Worsening bilateral lung opacities, likely atelectasis and/or infiltrates. 2. Small left pleural effusion. Reading Location: [id number]
--- NOTE | 2024-11-11 08:14 | NURSING ---
Patient returned to floor from xray at 0800
[2024-11-11] MEDS: Ampicillin/Sulbactam 3 GM in 0.9% Normal Saline (100mL MB+) 100 ML IV ×3 (08:54→23:55)
[2024-11-11] MEDS: 0.9% Normal Saline (250mL Bag) 250 ML 15 ML IV (08:54)
[2024-11-11] MEDS: 0.9% Saline Lock 10 ML Syringe IV (08:54)
--- NOTE | 2024-11-11 09:11 | NURSING ---
DR YANG NOTIFIED OF CXR RESULTS-PNEUMONIA- NEW ORDER FOR IV ATB'S. STARTED, AT BEDSIDE, PT SLEEPING BUT AROUSES EASILY. RESP EVEN & UNLABORED. HOB ELEVATED. CALL LIGHT IN REACH. WITH MANY QUESTIONS, 02/21 SUPPORT PROVIDED, UPDATING DAUGHTER VIA IPAD.
[2024-11-11 09:44] VITALS: BP 155/85; PULSE 78; RESP 18; TEMP 36.5; O2SAT 97
[2024-11-11] MEDS: FLUTICASONE/UMECLIDIN/VILANTER 1 EACH BLST.W.DEV INHALATION (09:49)
[2024-11-11] MEDS: APIXABAN 5 MG TABLET PO ×2 (09:49→20:55)
[2024-11-11] MEDS: Potassium Chloride Oral Tablet 20 MEQ PO (09:50)
[2024-11-11] MEDS: Magnesium Chloride 64 MG Delay Rel.Tablet PO (09:50)
[2024-11-11] MEDS: Senna/Docusate Sodium 1 Tablet 2 TABLET PO (10:01)
--- NOTE | 2024-11-11 10:35 | NURSING ---
DR Black notified of pt requesting aerosal tx's as previously done on acute side when admitted for pneumonia. new orders received.
[2024-11-11] MEDS: MethylPREDNISolone DosePak 4 MG BOX PO ×3 (11:52→20:56)
[2024-11-11] MEDS: Ensure Clear 120 ML Liquid PO ×2 (12:00→21:02)
--- NOTE | 2024-11-11 15:20 | NURSING ---
dr pereira notified of pt trelegy inhaler interaction w/aerosal tx' can cause arrhythmia's. new order to place on hold.
[2024-11-11 15:30] VITALS: PULSE 85; RESP 18; O2SAT 95
[2024-11-11] MEDS: Albuterol 2.5 MG/3 ML VIAL.NEB. INHALATION ×2 (15:30→19:57)
[2024-11-11 17:33] VITALS: BP 143/77; PULSE 65; RESP 18; TEMP 36.3; O2SAT 98
--- NOTE | 2024-11-11 18:11 | NURSING ---
unable to give pts 1700 meds d/t pt lethargy at this time. RN did sternal rub and pt did awaken to answer all questions person, place, time year month, but falls right back to sleep. at side. blood sugar and vitals all WNL. heart rate regular 60's. call light in reach. dr pereira updated, continue to monitor. pt has been doing this intermittently per other staff, seems to be early AM and later evening hours. call light in reach. will attempt to medicate pt when alert and awake.
--- NOTE | 2024-11-11 18:55 | NURSING ---
called out and stated her was awake. entered room & was able to administer 1700 meds at this time. crushed in yogurt administered w/out difficulty. and daughter/son in law visiting.
[2024-11-11 19:57] VITALS: PULSE 66; RESP 16; O2SAT 97
[2024-11-11] MEDS: MELATONIN 10 MG TABLET PO (20:55)
[2024-11-12] MEDS: Ampicillin/Sulbactam 3 GM in 0.9% Normal Saline (100mL MB+) 100 ML IV ×4 (05:24→23:11)
[2024-11-12] MEDS: Ensure Clear 120 ML Liquid PO ×3 (05:24→21:15)
[2024-11-12] MEDS: 0.9% Saline Lock 10 ML Syringe IV ×3 (05:24→21:14)
[2024-11-12 05:40] VITALS: PULSE 74; RESP 18; O2SAT 96
[2024-11-12 07:15] VITALS: PULSE 69; RESP 18; O2SAT 94
[2024-11-12 09:39] VITALS: BP 142/74; PULSE 77; RESP 16; TEMP 36.5; O2SAT 96
[2024-11-12] MEDS: Potassium Chloride Oral Tablet 20 MEQ PO (09:46)
[2024-11-12] MEDS: MethylPREDNISolone DosePak 4 MG BOX PO ×4 (09:46→21:16)
[2024-11-12] MEDS: APIXABAN 5 MG TABLET PO ×2 (09:47→21:16)
[2024-11-12] MEDS: Magnesium Chloride 64 MG Delay Rel.Tablet PO (09:47)
[2024-11-12 12:58] VITALS: PULSE 65; RESP 16
[2024-11-12 19:45] VITALS: PULSE 64; RESP 16; O2SAT 97
[2024-11-12 21:08] VITALS: BP 155/81; PULSE 70; O2SAT 97
[2024-11-12] MEDS: MELATONIN 10 MG TABLET PO (21:17)
[2024-11-12] MEDS: 0.9% Normal Saline (250mL Bag) 250 ML 15 ML IV (23:00)
[2024-11-13] MEDS: Ensure Clear 120 ML Liquid PO ×3 (05:10→19:53)
[2024-11-13] MEDS: Ampicillin/Sulbactam 3 GM in 0.9% Normal Saline (100mL MB+) 100 ML IV ×4 (05:10→23:10)
[2024-11-13 07:35] VITALS: PULSE 72; RESP 20; O2SAT 95
[2024-11-13 09:58] VITALS: BP 152/85; PULSE 73; RESP 16; TEMP 36.5; O2SAT 97
[2024-11-13] MEDS: Potassium Chloride Oral Tablet 20 MEQ PO (10:03)
[2024-11-13] MEDS: MethylPREDNISolone DosePak 4 MG BOX PO ×4 (10:03→20:27)
[2024-11-13] MEDS: APIXABAN 5 MG TABLET PO ×2 (10:04→20:30)
[2024-11-13] MEDS: Magnesium Chloride 64 MG Delay Rel.Tablet PO (10:04)
[2024-11-13 14:50] VITALS: BMI 28.0
[2024-11-13 20:00] VITALS: PULSE 72; O2SAT 98
[2024-11-13 20:12] VITALS: PULSE 67; RESP 18
[2024-11-13] MEDS: MELATONIN 10 MG TABLET PO (20:29)
[2024-11-13] MEDS: 0.9% Saline Lock 10 ML Syringe IV (20:32)
[2024-11-13 21:02] VITALS: BP 159/79; PULSE 65; O2SAT 98
[2024-11-13] MEDS: 0.9% Normal Saline (250mL Bag) 250 ML 15 ML IV (23:09)
[2024-11-14] VITALS (7 sets, daily range): BP systolic 144–193; BP diastolic 74–109; PULSE 65–78; RESP 16–62; TEMP 36.4–36.7; O2SAT 94–97
[2024-11-14] MEDS: Ensure Clear 120 ML Liquid PO ×3 (05:05→22:12)
[2024-11-14] MEDS: Ampicillin/Sulbactam 3 GM in 0.9% Normal Saline (100mL MB+) 100 ML IV ×4 (05:07→23:33)
[2024-11-14 06:32] LABS: Hematocrit 33.7 % (40-54); Hemoglobin 11.0 g/dL (13.0-16.5); Immature Granulocytes Count 0.170 X10^3/uL (0.0-0.0); Mean Corp Hgb Conc 32.6 g/dL (32-36); Mean Corpuscular Volume 90.8 fL (80-94); Mean Platelet Vol. 9.9 fl (6.2-12.0); NRBC Flagged by Analyzer 0 % (0-5); Platelet Count 379 K/mm3 (150-450); RBC Distribution Width CV 15.9 % (11.6-14.6); RBC Distribution Width SD 52.7 fl (35.1-43.9); Red Blood Count 3.71 M/mm3 (4.6-6.2); White Blood Count 11.1 K/mm3 (4.4-11.0)
[2024-11-14 06:55] LABS: Anion Gap 10 (5-15); BUN 18 mg/dL (4-19); BUN/Creat Ratio 15.1 RATIO (10-20); Calcium,Total 9.1 mg/dL (7.6-11.0); Carbon Dioxide 25.6 mmol/L (21.0-32.0); Chloride 105 mmol/L (98-108); Estimated Creatinine Clearance 52.39 ml/min (50-250); Glucose 131 mg/dL (70-99); Potassium 4.3 mmol/L (3.3-5.1)
--- NOTE | 2024-11-14 08:27 | NURSING ---
Manager Critical Care Note; MDS for 11/13/2024 Complete
[2024-11-14] MEDS: Potassium Chloride Oral Tablet 20 MEQ PO (09:42)
[2024-11-14] MEDS: Magnesium Chloride 64 MG Delay Rel.Tablet PO (09:42)
[2024-11-14] MEDS: MethylPREDNISolone DosePak 4 MG BOX PO ×3 (09:42→22:10)
[2024-11-14] MEDS: APIXABAN 5 MG TABLET PO ×2 (09:42→22:11)
[2024-11-14] MEDS: Tuberculin,Purif.prot.deriv. 50 TU/ML Vial 0.1 ML ID (09:44)
[2024-11-14] MEDS: 0.9% Saline Lock 10 ML Syringe IV ×3 (11:31→23:34)
--- NOTE | 2024-11-14 13:29 | NURSING ---
Left VM with Dr. Cavazos's office asking about scheduling a follow-up. Await return call.
--- NOTE | 2024-11-14 14:05 | CASEMGMT ---
Social Work IDT met with patient, and dtr for care plan meeting. Discussed patient's progress in PT/OT/ST/SN. Pt is on IV ATB for PNA with stop date 11/18. New benavides but goal is to remove on 11/19 and start voiding trials. Dtr spoke with charge nurse to discuss possible issues with benavides removal. Pt has a drain and Dr Cavazos's office scheduled appt 11/23 to get drain removed. Pt voiced "I am so pleased with everyone and [place] should be so proud". Educated to [facility] insurance with NRD 11/14 and continued stay is not guaranteed with each review. Provided pt/family with written communication of insurance process and copay coverage during stay. Educated insurance issues LCD based on pt no longer meeting criteria, not readiness for DC. SW to assist with coordinating needs and providing recommendations at DC. Family voiced no other issues or concerns. SW will continue to follow for DC planning. Kristi Murillo [employer]ANK [employer]
--- NOTE | 2024-11-14 14:23 | CASEMGMT ---
Social Work SW completed BIMS () and PHQ-2 () for MDS assessment. Pt does exhibit cognitive impairment despite BIMS score. Kristi Murillo MSW SIE[employer] ARCHITECT
--- NOTE | 2024-11-14 14:35 | NURSING ---
Discussed benavides removal with resident, , and dtr in room. They noted his current benavides was placed with a guidewire by urologist. The could follow-up with [facility]. They'd be fine to transfer care to [facility] for their recommendations and to have them follow in case a voiding trial didn't go well. Left a note for Dr. Black.
[2024-11-14] MEDS: MELATONIN 10 MG TABLET PO (22:11)
--- NOTE | 2024-11-14 23:30 | NURSING ---
pt bp 193/109 R arm, 176/101 L arm. Nurse administered PRN hydralazine. Rechecked bp 1 hr later, BP 162/87 R arm
[2024-11-15] MEDS: Ampicillin/Sulbactam 3 GM in 0.9% Normal Saline (100mL MB+) 100 ML IV ×3 (06:03→17:03)
[2024-11-15] MEDS: Ensure Clear 120 ML Liquid PO ×3 (06:04→20:58)
[2024-11-15 06:45] VITALS: PULSE 65; RESP 18; O2SAT 96
--- NOTE | 2024-11-15 08:39 | NURSING ---
Addendum entered by Lizbeth Cuba 11/15/24 13:30: Called to f/u. Dr. Asencio does not want benavides removed d/t very difficult insertion. Let them know wants to speak with him. They will see if he can come back and let TCU know. Original Note: dr asencio's office notified of consult order.
[2024-11-15 09:20] VITALS: BP 145/72; PULSE 70; RESP 18; TEMP 36.1; O2SAT 97
[2024-11-15] MEDS: MethylPREDNISolone DosePak 4 MG BOX PO ×2 (09:24→20:58)
[2024-11-15] MEDS: APIXABAN 5 MG TABLET PO ×2 (09:25→20:58)
[2024-11-15] MEDS: Potassium Chloride Oral Tablet 20 MEQ PO (09:25)
[2024-11-15] MEDS: Magnesium Chloride 64 MG Delay Rel.Tablet PO (09:25)
[2024-11-15] MEDS: 0.9% Saline Lock 10 ML Syringe IV (11:17)
[2024-11-15 12:40] VITALS: PULSE 70; RESP 18
[2024-11-15 16:12] VITALS: O2SAT 99
[2024-11-15 17:14] VITALS: PULSE 74; O2SAT 93
[2024-11-15 19:30] VITALS: PULSE 78; RESP 18
[2024-11-15] MEDS: MELATONIN 10 MG TABLET PO (20:58)
[2024-11-16] MEDS: 0.9% Normal Saline (250mL Bag) 250 ML 15 ML IV ×2 (00:24→23:05)
[2024-11-16] MEDS: 0.9% Saline Lock 10 ML Syringe IV ×6 (00:24→23:00)
[2024-11-16] MEDS: Ampicillin/Sulbactam 3 GM in 0.9% Normal Saline (100mL MB+) 100 ML IV ×5 (00:24→23:05)
[2024-11-16] MEDS: Ensure Clear 120 ML Liquid PO ×2 (05:23→14:24)
[2024-11-16 07:23] VITALS: PULSE 68; RESP 18; O2SAT 93
[2024-11-16 09:56] VITALS: BP 151/80; PULSE 73; RESP 18; TEMP 36.3; O2SAT 93
[2024-11-16] MEDS: Magnesium Chloride 64 MG Delay Rel.Tablet PO (09:58)
[2024-11-16] MEDS: APIXABAN 5 MG TABLET PO ×2 (09:58→20:28)
[2024-11-16] MEDS: Potassium Chloride Oral Tablet 20 MEQ PO (09:58)
--- NOTE | 2024-11-16 10:28 | NURSING ---
Called to update dtr Annika, left VM stating that Dr. 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
[2024-11-16 13:35] VITALS: PULSE 62; RESP 18
--- NOTE | 2024-11-16 15:56 | DS.PCM_ITS ---
Providers Date of Admission: 11/06/24 Primary Care Physician: Dr. Dipak Aguilar, Consultations 11/14/24 17:12 Consult: Urology Routine Consulting Provider: Gerard Asencio Reason for Consult: bph/urinary retention/benavides required guideware placement. EMERGENT Consult: No MD Notified: Yes Date Notified: 11/15/24 Time Notified: 08:39 Method of Notification: Verbal Reason For Visit: cholecystitis Diagnosis Discharge Diagnosis (1) Debility: Status: Acute Code(s): R53.81 - Other malaise (2) Sepsis: Status: Resolved Code(s): A41.9 - Sepsis, unspecified organism (3) Acute respiratory failure with hypoxia: Status: Acute Code(s): J96.01 - Acute respiratory failure with hypoxia (4) Encephalopathy: Status: Acute Code(s): G93.40 - Encephalopathy, unspecified (5) Acute cholecystitis: Status: Resolved Code(s): K81.0 - Acute cholecystitis (6) Aspiration pneumonia: Status: Acute Code(s): J69.0 - Pneumonitis due to inhalation of food and vomit (7) Dysphagia: Status: Acute Code(s): R13.10 - Dysphagia, unspecified (8) GERD (gastroesophageal reflux disease): Status: Acute Code(s): K21.9 - Gastro-esophageal reflux disease without esophagitis (9) Atrial fibrillation with RVR: Status: Resolved Code(s): I48.91 - Unspecified atrial fibrillation (10) Vitamin D deficiency: Status: Acute Code(s): E55.9 - Vitamin D deficiency, unspecified (11) Asthma: Status: Acute Code(s): J45.909 - Unspecified asthma, uncomplicated (12) Type 2 diabetes mellitus with hyperglycemia: Status: Acute Code(s): E11.65 - Type 2 diabetes mellitus with hyperglycemia (13) Essential hypertension: Status: Acute Code(s): I10 - Essential (primary) hypertension (14) Hyperlipidemia: Status: Acute Code(s): E78.5 - Hyperlipidemia, unspecified (15) Acute on chronic heart failure with preserved ejection fraction (HFpEF): Status: Acute Code(s): I50.33 - Acute on chronic diastolic (congestive) heart failure Plan 89 year old male with below past medical history hospitalized for sepsis 2/2 acute cholecystitis treated with cholecystostomy tube, acute respiratory failure with hypoxia 2/2 aspiration pneumonia 2/2 dysphagia, complicated by encephalopathy, acute on chronic HFpEF, atrial fibrillation with RVR, admitted to TCU with debility, here for rehabilitation, strengthening, prior to discharge home with . * Debility - PT/OT. * Dysphagia - ST. * Pain - Tylenol 1000mg q6 prn pain (1-10). * Bowel - senna/colace 2 tablets bid, Magnesium citrate 300mL daily prn. * Adult immunization - Administer pneumonia vaccine, covid vaccine, flu vaccine as appropriate. * DVT prophylaxis - Eliquis. * Asthma - Budesonide 0.5mg inhaled bid, Duoneb 0.5mg q6wart, Albuterol 1 puff 4x/day (May substitute Trelegy 200mcg 1 puff daily if daughter brings in home supply). * Atrial Fibrillation - Amiodarone 200mg tid thru 11/07/2024, then 200mg bid thru 11/14/2024, then 200mg daily, Eliquis 5mg bid. * Hyperlipidemia - Atorvastatin 40mg qhs. * Cholecystitis/Aspiration pneumonia - Cefdinir 300mg bid thru 11/09/2024, Flagyl 500mg tid thru 11/09/2024, consider lap akash when stable. * Nutrition - Ensure Plus 120mL tid. * Chronic HFpEF - Furosemide 40mg daily prn. * Congestion - Mucinex 1200mg bid. * HTN - Hydralazine 25mg bid prn high blood pressure. * Hypomagnesemia - Magnesium chloride 64mg daily. * Insomnia - Melatonin 10mg qhs. * Skin irritation - Calmoseptine topical bid. * Diabetes Mellitus II - Metformin 500mg bidcm. * Tinea Corporis - Nystatin powder topical bid. * GERD - Pantoprazole 20mg daily. * Dry nose - Sodium chloride 2 sprays nasal bid prn. The following psychotropic medication was present on admission: Risperdal 0.5mg qhs. Psychotropic medication therapy is indicated for a diagnosis of: [place]. Based on my clinical evaluation, continuation of the medication is necessary at this time. Gradual dose reduction plan (select one): __x__ GDR will be attempted. Will monitor patient symptoms and behaviors in response to GDR. ____ GRD contraindicated. Reason contraindicated: Medications at Discharge Home Medications omeprazole 40 mg capsule,delayed release 20 mg PO DAILY reflux 07/22/15 albuterol sulfate 90 mcg/actuation breath activated powder inhaler 1 puff PO Q6H shortness of breath 09/05/19 apixaban 5 mg tablet 5 mg PO BID blood thinner #180 tabs 09/26/19 cholecalciferol (vitamin D3) 50 mcg (2,000 unit) tablet 50 mcg PO DAILY 09/26/19 Lactobacillus acidophilus 10 billion cell capsule (Probiotic) 10,000 mmu cells PO DAILY supplement 09/30/23 fluticasone fur. 200 mcg-umeclid 62.5 mcg-vilant 25 mcg inhalat.powder (Trelegy Ellipta) 1 ea inhalation DAILY breathing 09/30/23 hydralazine 25 mg tablet 25 mg PO BID PRN blood pressure 10/26/24 magnesium 200 mg tablet 200 mg PO DAILY magnesium 10/26/24 metformin 500 mg tablet 500 mg PO BID diabetes 10/26/24 rosuvastatin 20 mg tablet 20 mg PO DAILY 10/26/24 melatonin 10 mg disintegrating tablet 10 mg PO QHS sleep #0 tabs 11/04/24 furosemide 20 mg tablet 40 mg (2 x 20 mg) PO DAILY PRN swelling #30 tabs 11/06/24 sodium chloride 0.65 % nasal spray aerosol (Deep Sea Nasal) 2 spray NASAL BID PRN PRN NASAL DRYNESS #0 mL 11/06/24 sodium chloride 0.65 % nasal spray aerosol (Deep Sea Nasal) 2 spray intranasal BID PRN nasal congestion 11/06/24 amiodarone 200 mg tablet 200 mg PO DAILY 30 days #30 tabs 11/16/24 famotidine 20 mg tablet 40 mg (2 x 20 mg) PO DAILY 30 days #60 tabs 11/16/24 potassium chloride 20 mEq tablet,extended release(part/cryst) 20 meq PO DAILYCM 30 days #30 tabs 11/16/24 tamsulosin 0.4 mg capsule 0.4 mg PO DAILY@1730 30 days #30 caps 11/16/24 Hospital Course Operations - (See below.) Procedures None Summary of Care Provided Minutes Spent on Discharge: 35 Hospital Course: 89 year old male with below past medical history hospitalized for sepsis 2/2 acute cholecystitis treated with cholecystostomy tube, acute respiratory failure with hypoxia 2/2 aspiration pneumonia 2/2 dysphagia, complicated by encephalopathy, acute on chronic HFpEF, atrial fibrillation with RVR, admitted to TCU with debility, here for rehabilitation, strengthening, prior to discharge home with . 11/11/2024 Aspiration pneumonia treated with Unasyn x 7 days, along with steroids, bronchodilators. Pending appeal, discharge home with 11/19/2024, [facility] PT/OT/PRINGLE. Consider cholecystectomy as outpatient. Follow up with Dr. Asencio for benavides catheter, he has bph/urinary retention, and benavides was placed by guidewire. Physical Exam Const alert General Appearance: cooperative HEENT normocephalic Eyes PERRL and EOMs intact bilaterally Neck supple, no JVD and no carotid bruits Resp normal respiratory effort, normal air movement and clear to auscultation bilaterally Cardio regular rate and regular rhythm GI normal to inspection, nondistended, normoactive bowel sounds, non-tender and non-distended GI Narrative: Cholecystostomy tube present. Bladder / Kidney Exam: catheter in place urethral Extremity normal capillary refill General Extremity: Negative for edema Skin no rashes or lesions noted General Skin Exam: no breakdown Psych affect normal Appearance: appropriate Weight / BMI Weight Weight: 93.95 kg Body Mass Index (BMI) 28.0 ABG / Lab / Microbiology Data 11/14/24 06:05 11/14/24 06:05 D/C Instructions Discharge Activity: Return to Normal Activity, May Shower and Use Walker Weight Bearing Status: Weight bearing as tolerated Call your doctor if you observe: Fever of 101 or Higher, Inability to urinate, Inability to have a bowel movement, Shortness of breath, Dizziness, Fainting spells, Swelling in the ankles, Chest pain and Uncontrolled pain DC O2, CPAP, BIPAP Needs Home O2 Discharge instructions: No Additional Instructions: Pending appeal, discharge home with 11/19/2024, [facility] PT/OT/PRINGLE. Consider cholecystectomy as outpatient. Follow up with Dr. Asencio for benavides catheter, he has bph/urinary retention, and benavides was placed by guidewire. Please Follow Up With: Florencio Trent MD Meaningful Use Info Meaningful Use Meaningful Use Diagnoses (Choose all that apply): None applicable Discharge Plan Admission Admit Date/Time: 11/06/24 13:35 Primary Reason for Your Visit: Debility. Attending Provider: Brandon Black Chi Primary Care Provider: Dipak Aguilar Consulting Providers: Gerard Asencio Instructions Additional Instructions / Restrictions: Pending appeal, discharge home with 11/19/2024, [facility] PT/OT/PRINGLE. Consider cholecystectomy as outpatient. Follow up with Dr. Asencio for benavides catheter, he has bph/urinary retention, and benavides was placed by guidewire. Discharge Orders/Prescriptions Prescriptions: New amiodarone 200 mg Tablet 200 mg PO DAILY 30 Days Qty: 30 0RF potassium chloride 20 mEq Tablet,Er Particles/Crystals 20 meq PO DAILYCM 30 Days Qty: 30 0RF famotidine 20 mg Tablet 40 mg PO DAILY 30 Days Qty: 60 0RF tamsulosin 0.4 mg Capsule 0.4 mg PO DAILY@1730 30 Days Qty: 30 0RF Continued cholecalciferol (vitamin D3) 50 mcg (2,000 unit) tablet 50 mcg PO DAILY apixaban 5 mg tablet 5 mg PO BID Qty: 180 3RF omeprazole 40 MG capsule 20 mg PO DAILY albuterol sulfate 90 mcg/actuation aerosol powdr breath activated 1 puff PO Q6H Patient Comments: INHALE 1 PUFF BY MOUTH 4 TIMES DAILY NEEDED Deep Sea Nasal 0.65 % aerosol,spray 2 spray intranasal BID PRN (Reason: nasal congestion) Trelegy Ellipta 200-62.5-25 mcg blister with device 1 ea inhalation DAILY Probiotic 10 billion cell capsule 10,000 mmu cells PO DAILY rosuvastatin 20 mg tablet 20 mg PO DAILY metformin 500 mg tablet 500 mg PO BID hydralazine 25 mg tablet 25 mg PO BID PRN magnesium 200 mg tablet 200 mg PO DAILY melatonin 10 mg Tablet,Disintegrating 10 mg PO QHS Qty: 0 0RF Deep Sea Nasal 0.65 % Aerosol,[place] 2 spray NASAL BID PRN PRN (Reason: NASAL DRYNESS) Qty: 0 0RF furosemide 20 mg tablet 40 mg PO DAILY PRN (Reason: swelling) Qty: 30 0RF Patient Comments: take as needed for swelling , or weight gain of 3 pounds in one day Discontinued tadalafil 5 mg tablet 5 mg PO DAILY multivitamin Tablet 1 tab PO QWEEK risperidone 0.5 mg tablet 0.5 mg PO QHS Ensure Plus High Protein 0.08 gram-1.5 kcal/mL liquid 120 ml PO TID omeprazole 20 mg capsule,delayed release(DR/EC) 20 mg PO DAILY calcium carbonate-vitamin D3 600 mg-10 mcg (400 unit) tablet 1 tab PO DAILY multivitamin [Daily Multi-Vitamin] Tablet 1 tab PO DAILY ipratropium-albuterol 0.5 mg-3 mg(2.5 mg base)/3 mL solution for nebulization 3 ml inhalation TID amiodarone 200 mg Tablet 200 mg PO TID Qty: 0 0RF Rx Instructions: 200 mg 3 times daily until 11/07/2024 then decrease to 200 mg twice daily until 11/14/2024 then decrease to 200 mg daily and continue that indefinitely risperidone 0.5 mg Tablet 0.5 mg PO QHS Qty: 0 0RF acetaminophen 325 mg Tablet 650 mg PO Q4H PRN PRN (Reason: Fever, pain -11/30) Qty: 0 0RF sennosides-docusate sodium [Stimulant Laxative Plus] 8.6-50 mg Tablet 2 tab PO BID Qty: 0 0RF budesonide 0.5 mg/2 mL Suspension For Nebulization 0.5 mg inhalation BID.RT Qty: 0 0RF ipratropium bromide 0.02 % Solution 0.5 mg inhalation Q6HWA.RT Qty: 0 0RF Ensure Plus High Protein 0.08 gram-1.5 kcal/mL Liquid 120 ml PO TIDCM Qty: 0 0RF cefdinir 300 mg capsule 300 mg PO BID Qty: 6 0RF metronidazole 500 mg tablet 500 mg PO TID 3 Days Qty: 9 0RF guaifenesin [Mucinex] 600 mg tablet extended release 12hr 1,200 mg PO BID Qty: 14 0RF Referrals / Follow Up: Dipak Aguilar DO [Primary Care Provider, Medical] Gerard Asencio MD [Med Staff - Active Staff, Urology] - Within 1 Week Referral Note: bph/urinary retention, benavides placed by guidewire. Disposition Disposition (needs filled in before D/C Order can be placed): Home Health Service
--- NOTE | 2024-11-16 16:03 | CASEMGMT ---
Addendum entered by Charisse Rodrigues 11/16/24 17:43: Social Work SW met with pt, pt's and pt's dgt. Appeal has been made and case number is [id number]. JA spoke with pt and family regarding discharge plan in the event appeal is denied and NOMNC is upheld with dc on 11/19. Options of home with home health care, private pay at area SNFs and private pay at [facility] all presented. All questions answered regarding pricing and services provided at each level of care. SW offere to provide list of area SNF providers and family denied. Family indicated they may be interested in [facility] or [facility]. JA explained that [facility] is an [facility] and would not have skilled therapy nor furnished rooms, also explained home health could be ordered at Assisted Living. Pt and family decline any further questions at this time and are also unwilling to confirm the discharge plan should pt lose appeal and need to discharge on Tuesday. JA will continue to follow for dc planning. GANESH Tanner Original Note: Social Work NOMNC issued by insurance with last covered day of 11/18 and dc 11/19. JA met with pt, pt's and pt's dgt. Pt was sleeping during conversation. Pt very upset with the proposal of NOMNC and strongly does not agree with discharge on Tuesday. JA explained insurance procedures including appeal process. Pt's plans to appeal. IDT updated on NOMNC and plan to appeal. JA attempted to make a discharge plan in the event denial is upheld. Pt's is not willing to talk about a discharge plan at this time. JA will continue to follow for dc planning. GANESH Tanner
[2024-11-16 16:29] VITALS: O2SAT 94
--- NOTE | 2024-11-16 18:00 | CASEMGMT ---
Social Work - Discharge Appeal Appeal Case #: [id number] Social work has checked multiple faxes (TCU SW office, TCU nurses station, hospital CM office, and ED SW office). No Medical records request and coon has been faxed. Called [facility] at [phone] - Message left on provider line to please fax request to main CM office (so covering SW on Tuesday can easily access). Live representatives available from [phone] - Handoff to covering SW for Tuesday for follow up on the records request from [facility]. Plan: Discharge appeal in process. following up on 11.17.2024. -ADAM Alfred
[2024-11-16 19:33] VITALS: PULSE 79; RESP 18
[2024-11-16] MEDS: MELATONIN 10 MG TABLET PO (20:28)
[2024-11-16 20:44] VITALS: PULSE 88; RESP 18; O2SAT 94
[2024-11-17] MEDS: Ampicillin/Sulbactam 3 GM in 0.9% Normal Saline (100mL MB+) 100 ML IV ×4 (06:17→23:28)
[2024-11-17] MEDS: 0.9% Normal Saline (250mL Bag) 250 ML 15 ML IV (06:17)
[2024-11-17] MEDS: 0.9% Saline Lock 10 ML Syringe IV ×4 (06:17→21:02)
[2024-11-17 08:44] VITALS: BP 145/85; PULSE 80; RESP 17; TEMP 36.5; O2SAT 95
[2024-11-17] MEDS: APIXABAN 5 MG TABLET PO ×2 (08:48→21:00)
[2024-11-17] MEDS: Potassium Chloride Oral Tablet 20 MEQ PO (08:48)
[2024-11-17] MEDS: Magnesium Chloride 64 MG Delay Rel.Tablet PO (08:49)
[2024-11-17] MEDS: Ensure Clear 120 ML Liquid PO ×3 (08:54→20:59)
[2024-11-17 12:52] VITALS: PULSE 89; RESP 16; O2SAT 96
[2024-11-17 19:25] VITALS: PULSE 80; RESP 18
[2024-11-17 20:00] VITALS: PULSE 80; O2SAT 96
[2024-11-17] MEDS: MELATONIN 10 MG TABLET PO (21:00)
[2024-11-18] MEDS: Ensure Clear 120 ML Liquid PO ×3 (05:20→20:34)
[2024-11-18] MEDS: Ampicillin/Sulbactam 3 GM in 0.9% Normal Saline (100mL MB+) 100 ML IV ×2 (05:20→11:17)
[2024-11-18 05:27] VITALS: PULSE 74; O2SAT 95
[2024-11-18 07:36] VITALS: PULSE 82; RESP 16; O2SAT 93
[2024-11-18 09:51] VITALS: BP 127/73; PULSE 90; RESP 17; TEMP 36.4; O2SAT 95
[2024-11-18] MEDS: Potassium Chloride Oral Tablet 20 MEQ PO (09:53)
[2024-11-18] MEDS: APIXABAN 5 MG TABLET PO ×2 (09:54→20:34)
[2024-11-18] MEDS: Magnesium Chloride 64 MG Delay Rel.Tablet PO (09:55)
[2024-11-18] MEDS: 0.9% Saline Lock 10 ML Syringe IV ×2 (11:17→20:36)
--- NOTE | 2024-11-18 19:54 | NURSING ---
Patient noted with small epistaxis, small amount of red drainage noted, patient states that he was picking at nose when it started, care provided, no active drainage noted at time, patient reminded not to pick at nose to prevent further bleeding.
[2024-11-18] MEDS: MELATONIN 10 MG TABLET PO (20:34)
[2024-11-18 21:00] VITALS: PULSE 82; O2SAT 94
[2024-11-19] VITALS (7 sets, daily range): BP systolic 107–137; BP diastolic 56–69; PULSE 71–91; RESP 16–18; TEMP 36.4; O2SAT 94–96
[2024-11-19] MEDS: Ensure Clear 120 ML Liquid PO ×3 (05:34→20:28)
--- NOTE | 2024-11-19 08:06 | CASEMGMT ---
Addendum entered by Kristi Murillo 11/19/24 09:45: SW phoned and confirmed she is aware of outcome of appeal. SW will notify with NRD. has no further information on DC plans. Original Note: Social Work Patient won his appeal. DC date postponed. IDT updated. SW to follow up with pt and . Kristi Murillo [employer]
[2024-11-19] MEDS: APIXABAN 5 MG TABLET PO ×2 (09:10→20:37)
[2024-11-19] MEDS: Magnesium Chloride 64 MG Delay Rel.Tablet PO (09:11)
[2024-11-19] MEDS: Potassium Chloride Oral Tablet 20 MEQ PO (09:11)
--- NOTE | 2024-11-19 09:27 | MDS.RN ---
Information for the MDS was obtained from review of the clinical record, interview of resident, staff, and direct observation of resident’s care.
[2024-11-19] MEDS: FLU VACCINE HIGH DOSE 25-26(65YR UP) 180 MCG/0.5 ML SYRINGE IM (11:27)
[2024-11-19] MEDS: 0.9% Saline Lock 10 ML Syringe IV ×2 (11:32→20:28)
--- NOTE | 2024-11-19 14:40 | NURSING ---
very concerned with getting benavides out while here. Primary nurse called Dr. Asencio, this RN took call back from physician. Dr. Asencio wants to scope resident and can only do that in office after DC. Updated resident in room, he was very agreeable. Will update when she is back in room.
[2024-11-19] MEDS: MELATONIN 10 MG TABLET PO (20:36)
[2024-11-20 07:30] VITALS: PULSE 79; RESP 18; O2SAT 92
[2024-11-20 09:57] VITALS: BP 121/62; PULSE 82; RESP 18; TEMP 36.3; O2SAT 96
[2024-11-20] MEDS: Ensure Clear 120 ML Liquid PO ×2 (09:58→13:38)
[2024-11-20] MEDS: Potassium Chloride Oral Tablet 20 MEQ PO (09:59)
[2024-11-20] MEDS: APIXABAN 5 MG TABLET PO ×2 (09:59→21:03)
[2024-11-20] MEDS: Magnesium Chloride 64 MG Delay Rel.Tablet PO (10:00)
[2024-11-20] MEDS: Senna/Docusate Sodium 1 Tablet 2 TABLET PO ×2 (10:07→21:05)
[2024-11-20] MEDS: 0.9% Saline Lock 10 ML Syringe IV ×2 (10:22→21:05)
[2024-11-20 10:38] VITALS: PULSE 82; RESP 16; O2SAT 96
[2024-11-20 13:47] VITALS: PULSE 84; RESP 16; O2SAT 96
[2024-11-20 14:00] VITALS: BMI 26.6
--- NOTE | 2024-11-20 16:23 | CASEMGMT ---
Social Work SW met with patient and dtr at bedside, per request. Pt is requesting to set DC date. Dtr states they want [facility] and they want to ensure SOC is the day after DC, ideally DC 11/22. SW explained there are variables to SOC and will make the referral and notify pt/dtr with outcome. Dtr requesting PT/OT/SN/PRINGLE and denied DME needs. SW agreed. - SW phoned referral to [facility]. They can accept with SOC 11/22 - JA updated pt and dtr in room. Both appreciative. Plan: DC home with 11/22, [facility] PT/OT/SN/PRINGLE Kristi Murillo [employer]
--- NOTE | 2024-11-20 17:14 | DS.PCM_ITS ---
Providers Date of Admission: 11/06/24 Primary Care Physician: Dr. Dipak Aguilar, Consultations 11/14/24 17:12 Consult: Urology Routine Consulting Provider: Gerard Asencio Reason for Consult: bph/urinary retention/benavides required guideware placement. EMERGENT Consult: No MD Notified: Yes Date Notified: 11/15/24 Time Notified: 08:39 Method of Notification: Verbal Reason For Visit: cholecystitis Diagnosis Discharge Diagnosis (1) Debility: Status: Acute Code(s): R53.81 - Other malaise (2) Sepsis: Status: Resolved Code(s): A41.9 - Sepsis, unspecified organism (3) Acute respiratory failure with hypoxia: Status: Resolved Code(s): J96.01 - Acute respiratory failure with hypoxia (4) Encephalopathy: Status: Resolved Code(s): G93.40 - Encephalopathy, unspecified (5) Acute cholecystitis: Status: Resolved Code(s): K81.0 - Acute cholecystitis (6) Aspiration pneumonia: Status: Resolved Code(s): J69.0 - Pneumonitis due to inhalation of food and vomit (7) Dysphagia: Status: Acute Code(s): R13.10 - Dysphagia, unspecified (8) GERD (gastroesophageal reflux disease): Status: Acute Code(s): K21.9 - Gastro-esophageal reflux disease without esophagitis (9) Atrial fibrillation with RVR: Status: Resolved Code(s): I48.91 - Unspecified atrial fibrillation (10) Vitamin D deficiency: Status: Acute Code(s): E55.9 - Vitamin D deficiency, unspecified (11) Asthma: Status: Acute Code(s): J45.909 - Unspecified asthma, uncomplicated (12) Type 2 diabetes mellitus with hyperglycemia: Status: Acute Code(s): E11.65 - Type 2 diabetes mellitus with hyperglycemia (13) Essential hypertension: Status: Acute Code(s): I10 - Essential (primary) hypertension (14) Hyperlipidemia: Status: Acute Code(s): E78.5 - Hyperlipidemia, unspecified (15) Acute on chronic heart failure with preserved ejection fraction (HFpEF): Status: Resolved Code(s): I50.33 - Acute on chronic diastolic (congestive) heart failure Plan 89 year old male with below past medical history hospitalized for sepsis 2/2 acute cholecystitis treated with cholecystostomy tube, acute respiratory failure with hypoxia 2/2 aspiration pneumonia 2/2 dysphagia, complicated by encephalopathy, acute on chronic HFpEF, atrial fibrillation with RVR, admitted to TCU with debility, here for rehabilitation, strengthening, prior to discharge home with . * Debility - PT/OT. * Dysphagia - ST. * Pain - Tylenol 1000mg q6 prn pain (1-10). * Bowel - senna/colace 2 tablets bid, Magnesium citrate 300mL daily prn. * Adult immunization - Administer pneumonia vaccine, covid vaccine, flu vaccine as appropriate. * DVT prophylaxis - Eliquis. * Asthma - Budesonide 0.5mg inhaled bid, Duoneb 0.5mg q6wart, Albuterol 1 puff 4x/day (May substitute Trelegy 200mcg 1 puff daily if daughter brings in home supply). * Atrial Fibrillation - Amiodarone 200mg tid thru 11/07/2024, then 200mg bid thru 11/14/2024, then 200mg daily, Eliquis 5mg bid. * Hyperlipidemia - Atorvastatin 40mg qhs. * Cholecystitis/Aspiration pneumonia - Cefdinir 300mg bid thru 11/09/2024, Flagyl 500mg tid thru 11/09/2024, consider lap akash when stable. * Nutrition - Ensure Plus 120mL tid. * Chronic HFpEF - Furosemide 40mg daily prn. * Congestion - Mucinex 1200mg bid. * HTN - Hydralazine 25mg bid prn high blood pressure. * Hypomagnesemia - Magnesium chloride 64mg daily. * Insomnia - Melatonin 10mg qhs. * Skin irritation - Calmoseptine topical bid. * Diabetes Mellitus II - Metformin 500mg bidcm. * Tinea Corporis - Nystatin powder topical bid. * GERD - Pantoprazole 20mg daily. * Dry nose - Sodium chloride 2 sprays nasal bid prn. The following psychotropic medication was present on admission: Risperdal 0.5mg qhs. Psychotropic medication therapy is indicated for a diagnosis of: [place]. Based on my clinical evaluation, continuation of the medication is necessary at this time. Gradual dose reduction plan (select one): __x__ GDR will be attempted. Will monitor patient symptoms and behaviors in response to GDR. ____ GRD contraindicated. Reason contraindicated: Medications at Discharge Home Medications omeprazole 40 mg capsule,delayed release 20 mg PO DAILY reflux 07/22/15 albuterol sulfate 90 mcg/actuation breath activated powder inhaler 1 puff PO Q6H shortness of breath 09/05/19 apixaban 5 mg tablet 5 mg PO BID blood thinner #180 tabs 09/26/19 cholecalciferol (vitamin D3) 50 mcg (2,000 unit) tablet 50 mcg PO DAILY 09/26/19 Lactobacillus acidophilus 10 billion cell capsule (Probiotic) 10,000 mmu cells PO DAILY supplement 09/30/23 fluticasone fur. 200 mcg-umeclid 62.5 mcg-vilant 25 mcg inhalat.powder (Trelegy Ellipta) 1 ea inhalation DAILY breathing 09/30/23 hydralazine 25 mg tablet 25 mg PO BID PRN blood pressure 10/26/24 magnesium 200 mg tablet 200 mg PO DAILY magnesium 10/26/24 metformin 500 mg tablet 500 mg PO BID diabetes 10/26/24 rosuvastatin 20 mg tablet 20 mg PO DAILY 10/26/24 melatonin 10 mg disintegrating tablet 10 mg PO QHS sleep #0 tabs 11/04/24 furosemide 20 mg tablet 40 mg (2 x 20 mg) PO DAILY PRN swelling #30 tabs 11/06/24 sodium chloride 0.65 % nasal spray aerosol (Deep Sea Nasal) 2 spray NASAL BID PRN PRN NASAL DRYNESS #0 mL 11/06/24 sodium chloride 0.65 % nasal spray aerosol (Deep Sea Nasal) 2 spray intranasal BID PRN nasal congestion 11/06/24 amiodarone 200 mg tablet 200 mg PO DAILY 30 days #30 tabs 11/16/24 famotidine 20 mg tablet 40 mg (2 x 20 mg) PO DAILY 30 days #60 tabs 11/16/24 potassium chloride 20 mEq tablet,extended release(part/cryst) 20 meq PO DAILYCM 30 days #30 tabs 11/16/24 tamsulosin 0.4 mg capsule 0.4 mg PO DAILY@1730 30 days #30 caps 11/16/24 Hospital Course Operations - (Cholecystostomy.) Procedures None Summary of Care Provided Minutes Spent on Discharge: 35 Hospital Course: 89 year old male with below past medical history hospitalized for sepsis 2/2 acute cholecystitis treated with cholecystostomy tube, acute respiratory failure with hypoxia 2/2 aspiration pneumonia 2/2 dysphagia, complicated by encephalopathy, acute on chronic HFpEF, atrial fibrillation with RVR, admitted to TCU with debility, here for rehabilitation, strengthening, prior to discharge home with . Discharge home with 11/22/2024, [facility] PT/OT/SN/PRINGLE. Physical Exam Const alert General Appearance: cooperative HEENT normocephalic Eyes PERRL and EOMs intact bilaterally Neck supple, no JVD and no carotid bruits Resp normal respiratory effort, normal air movement and clear to auscultation bilaterally Cardio regular rate and regular rhythm GI normal to inspection, nondistended, normoactive bowel sounds, non-tender and non-distended GI Narrative: Cholecystostomy tube present. Bladder / Kidney Exam: catheter in place urethral Extremity normal capillary refill General Extremity: Negative for edema Skin no rashes or lesions noted General Skin Exam: no breakdown Psych affect normal Appearance: appropriate Weight / BMI Weight Weight: 93.95 kg Body Mass Index (BMI) 28.0 ABG / Lab / Microbiology Data 11/14/24 06:05 11/14/24 06:05 D/C Instructions Weight Bearing Status: Weight bearing as tolerated Call your doctor if you observe: Fever of 101 or Higher, Inability to urinate, Inability to have a bowel movement, Shortness of breath, Dizziness, Fainting spells, Swelling in the ankles, Chest pain and Uncontrolled pain DC O2, CPAP, BIPAP Needs Home O2 Discharge instructions: No Additional Instructions: Discharge home with 11/22/2024, [facility] PT/OT/SN/PRINGLE. Consider cholecystectomy as outpatient. Follow up with Dr. Asencio for benavides catheter, he has bph/urinary retention, and benavides was placed by guidewire. Please Follow Up With: Florencio Trent MD When: As scheduled. Meaningful Use Info Meaningful Use Meaningful Use Diagnoses (Choose all that apply): None applicable Discharge Plan Admission Admit Date/Time: 11/06/24 13:35 Primary Reason for Your Visit: Debility. Attending Provider: Brandon Black Chi Primary Care Provider: Dipak Aguilar Consulting Providers: Gerard Asencio Instructions Additional Instructions / Restrictions: Pending appeal, discharge home with 11/19/2024, [facility] PT/OT/PRINGLE. Consider cholecystectomy as outpatient. Follow up with Dr. Asencio for benavides catheter, he has bph/urinary retention, and benavides was placed by guidewire. Discharge Orders/Prescriptions Prescriptions: New amiodarone 200 mg Tablet 200 mg PO DAILY 30 Days Qty: 30 0RF potassium chloride 20 mEq Tablet,Er Particles/Crystals 20 meq PO DAILYCM 30 Days Qty: 30 0RF famotidine 20 mg Tablet 40 mg PO DAILY 30 Days Qty: 60 0RF tamsulosin 0.4 mg Capsule 0.4 mg PO DAILY@1730 30 Days Qty: 30 0RF Continued cholecalciferol (vitamin D3) 50 mcg (2,000 unit) tablet 50 mcg PO DAILY apixaban 5 mg tablet 5 mg PO BID Qty: 180 3RF omeprazole 40 MG capsule 20 mg PO DAILY albuterol sulfate 90 mcg/actuation aerosol powdr breath activated 1 puff PO Q6H Patient Comments: INHALE 1 PUFF BY MOUTH 4 TIMES DAILY NEEDED Deep Sea Nasal 0.65 % aerosol,spray 2 spray intranasal BID PRN (Reason: nasal congestion) Trelegy Ellipta 200-62.5-25 mcg blister with device 1 ea inhalation DAILY Probiotic 10 billion cell capsule 10,000 mmu cells PO DAILY rosuvastatin 20 mg tablet 20 mg PO DAILY metformin 500 mg tablet 500 mg PO BID hydralazine 25 mg tablet 25 mg PO BID PRN magnesium 200 mg tablet 200 mg PO DAILY melatonin 10 mg Tablet,Disintegrating 10 mg PO QHS Qty: 0 0RF Deep Sea Nasal 0.65 % Aerosol,Vining 2 spray NASAL BID PRN PRN (Reason: NASAL DRYNESS) Qty: 0 0RF furosemide 20 mg tablet 40 mg PO DAILY PRN (Reason: swelling) Qty: 30 0RF Patient Comments: take as needed for swelling , or weight gain of 3 pounds in one day Discontinued tadalafil 5 mg tablet 5 mg PO DAILY multivitamin Tablet 1 tab PO QWEEK risperidone 0.5 mg tablet 0.5 mg PO QHS Ensure Plus High Protein 0.08 gram-1.5 kcal/mL liquid 120 ml PO TID omeprazole 20 mg capsule,delayed release(DR/EC) 20 mg PO DAILY calcium carbonate-vitamin D3 600 mg-10 mcg (400 unit) tablet 1 tab PO DAILY multivitamin [Daily Multi-Vitamin] Tablet 1 tab PO DAILY ipratropium-albuterol 0.5 mg-3 mg(2.5 mg base)/3 mL solution for nebulization 3 ml inhalation TID amiodarone 200 mg Tablet 200 mg PO TID Qty: 0 0RF Rx Instructions: 200 mg 3 times daily until 11/07/2024 then decrease to 200 mg twice daily until 11/14/2024 then decrease to 200 mg daily and continue that indefinitely risperidone 0.5 mg Tablet 0.5 mg PO QHS Qty: 0 0RF acetaminophen 325 mg Tablet 650 mg PO Q4H PRN PRN (Reason: Fever, pain -11/30) Qty: 0 0RF sennosides-docusate sodium [Stimulant Laxative Plus] 8.6-50 mg Tablet 2 tab PO BID Qty: 0 0RF budesonide 0.5 mg/2 mL Suspension For Nebulization 0.5 mg inhalation BID.RT Qty: 0 0RF ipratropium bromide 0.02 % Solution 0.5 mg inhalation Q6HWA.RT Qty: 0 0RF Ensure Plus High Protein 0.08 gram-1.5 kcal/mL Liquid 120 ml PO TIDCM Qty: 0 0RF cefdinir 300 mg capsule 300 mg PO BID Qty: 6 0RF metronidazole 500 mg tablet 500 mg PO TID 3 Days Qty: 9 0RF guaifenesin [Mucinex] 600 mg tablet extended release 12hr 1,200 mg PO BID Qty: 14 0RF Referrals / Follow Up: Dipak Aguilar DO [Primary Care Provider, Medical] Gerard Asencio MD [Med Staff - Active Staff, Urology] - Within 1 Week Referral Note: bph/urinary retention, benavides placed by guidewire. Disposition Disposition (needs filled in before D/C Order can be placed): Home Health Service
[2024-11-20 20:05] VITALS: PULSE 86; RESP 15
[2024-11-20] MEDS: MELATONIN 10 MG TABLET PO (21:03)
[2024-11-21] MEDS: Ensure Clear 120 ML Liquid PO ×3 (05:23→20:52)
[2024-11-21 07:20] VITALS: PULSE 82; RESP 17
[2024-11-21 07:44] LABS: Hematocrit 36.2 % (40-54); Hemoglobin 12.2 g/dL (13.0-16.5); Immature Granulocytes Count 0.180 X10^3/uL (0.0-0.0); Mean Corp Hgb Conc 33.7 g/dL (32-36); Mean Corpuscular Volume 88.1 fL (80-94); Mean Platelet Vol. 9.9 fl (6.2-12.0); NRBC Flagged by Analyzer 0 % (0-5); Platelet Count 239 K/mm3 (150-450); RBC Distribution Width CV 15.9 % (11.6-14.6); RBC Distribution Width SD 51.2 fl (35.1-43.9); Red Blood Count 4.11 M/mm3 (4.6-6.2); White Blood Count 8.2 K/mm3 (4.4-11.0)
[2024-11-21 08:13] VITALS: BP 151/80; PULSE 81; RESP 18; TEMP 35.6; O2SAT 95
[2024-11-21] MEDS: Potassium Chloride Oral Tablet 20 MEQ PO (08:15)
[2024-11-21 08:16] LABS: Anion Gap 11 (5-15); BUN 13 mg/dL (4-19); BUN/Creat Ratio 9.6 RATIO (10-20); Calcium,Total 9.6 mg/dL (7.6-11.0); Carbon Dioxide 25.6 mmol/L (21.0-32.0); Chloride 101 mmol/L (98-108); Estimated Creatinine Clearance 40.32 ml/min (50-250); Glucose 109 mg/dL (70-99); Potassium 4.2 mmol/L (3.3-5.1)
[2024-11-21] MEDS: APIXABAN 5 MG TABLET PO ×2 (08:16→20:53)
[2024-11-21] MEDS: Magnesium Chloride 64 MG Delay Rel.Tablet PO (08:17)
[2024-11-21] MEDS: 0.9% Saline Lock 10 ML Syringe IV (08:18)
[2024-11-21] MEDS: Senna/Docusate Sodium 1 Tablet 2 TABLET PO ×2 (08:24→20:53)
--- NOTE | 2024-11-21 10:45 | NURSING ---
R AND R' NOTIFIED OF CASE O COVID ON UNIT.
[2024-11-21 13:42] VITALS: PULSE 81; RESP 19
[2024-11-21 19:51] VITALS: PULSE 82; O2SAT 96
[2024-11-21] MEDS: MELATONIN 10 MG TABLET PO (20:53)
[2024-11-22 01:35] VITALS: PULSE 86; O2SAT 98
[2024-11-22] MEDS: Ensure Clear 120 ML Liquid PO (04:23)
[2024-11-22 08:33] VITALS: BP 129/70; PULSE 87; PULSE 90; RESP 18; TEMP 36.9; O2SAT 95
[2024-11-22] MEDS: Potassium Chloride Oral Tablet 20 MEQ PO (08:36)
[2024-11-22] MEDS: Magnesium Chloride 64 MG Delay Rel.Tablet PO (08:36)
[2024-11-22] MEDS: APIXABAN 5 MG TABLET PO (08:36)
[2024-11-22] MEDS: Senna/Docusate Sodium 1 Tablet 2 TABLET PO (08:46)
[2024-11-22] MEDS: Magnesium Citrate 300 ML PO (08:52)
--- NOTE | 2024-11-22 09:09 | CASEMGMT ---
Social Work SW completed BIMS () and PHQ-2 () for MDS assessment. Kristi Murillo [employer] AP[employer]ENTICE
--- NOTE | 2024-11-22 12:11 | NURSING ---
pt given mag citrate this AM, pt reports no BM since tuesday. pt assisted to BR but only passed LG amt of flatus but no stool, then gave mag citrate. at side. Kris wraps to BLEs as well. call light in [place].
--- NOTE | 2024-11-22 13:21 | NURSING ---
pt unable to have BM but and pt wanting to go home. pt dc'd via WC to car with .
== END 2024-11-22 13:10 | disposition home health service (06) | DRG 949 ==
PROVIDERS: Admitting Provider Family Medicine Geriatric Medicine; PCP Student in an Organized Health Care Education/Training Program; Referring Provider Family Medicine Geriatric Medicine; Visit Provider Family Medicine Geriatric Medicine
DX: Z48.815 Encounter for surgical aftercare following surgery on the digestive system (principal); J69.0 Pneumonitis due to inhalation of food and vomit; J96.01 Acute respiratory failure with hypoxia; K81.0 Acute cholecystitis; F05 Delirium due to known physiological condition; I50.32 Chronic diastolic (congestive) heart failure; R13.10 Dysphagia, unspecified; I48.91 Unspecified atrial fibrillation; B35.4 Tinea corporis; E11.65 Type 2 diabetes mellitus with hyperglycemia; I11.0 Hypertensive heart disease with heart failure; J45.909 Unspecified asthma, uncomplicated; E55.9 Vitamin D deficiency, unspecified; E78.5 Hyperlipidemia, unspecified; K21.9 Gastro-esophageal reflux disease without esophagitis; F41.9 Anxiety disorder, unspecified; W19.XXXD Unspecified fall, subsequent encounter; Z87.891 Personal history of nicotine dependence; Z79.84 Long term (current) use of oral hypoglycemic drugs; Z79.899 Other long term (current) drug therapy; Z79.51 Long term (current) use of inhaled steroids; Z79.01 Long term (current) use of anticoagulants; S22.49XD Multiple fractures of ribs, unspecified side, subsequent encounter for fracture with routine healing; G47.00 Insomnia, unspecified; Z23 Encounter for immunization; N40.1 Benign prostatic hyperplasia with lower urinary tract symptoms; R33.8 Other retention of urine
CPT/HCPCS: 36415; 71046; 80048; 80061; 82962; 85025; 87811; 92526; 92610; 93005; 94640; 97110; 97162; 97166; 97530; 97535; 97802; A4216; J0295

== ENCOUNTER 2024-11-10 17:49 | Emergency (ER) | payer MEDICARE, SELFPAY ==
[2024-11-10] VITALS (12 sets, daily range): BP systolic 101–198; BP diastolic 53–189; PULSE 84–137; RESP 15–33; TEMP 36.5–37.6; O2SAT 94–97; BMI 29.0
[2024-11-10 18:31] LABS: Hematocrit 44.0 % (40-54); Hemoglobin 14.5 g/dL (13.0-16.5); Immature Granulocytes Count 0.240 X10^3/uL (0.0-0.0); Mean Corp Hgb Conc 33.0 g/dL (32-36); Mean Corpuscular Volume 89.8 fL (80-94); Mean Platelet Vol. 10.0 fl (6.2-12.0); NRBC Flagged by Analyzer 0 % (0-5); Platelet Count 403 K/mm3 (150-450); RBC Distribution Width CV 16.4 % (11.6-14.6); RBC Distribution Width SD 52.0 fl (35.1-43.9); Red Blood Count 4.90 M/mm3 (4.6-6.2); White Blood Count 16.7 K/mm3 (4.4-11.0)
--- OUTSIDE RECORDS SUMMARY | 2024-11-10 18:44 | XMS RPT_ITS | CCD ---
Author Organization [facility] Care Team Providers Care Refrigeration Service Technician Name Role Phone AJ ISSA Unavailable Unavailable [...] e DIPAK AGUILAR Primary Care Unavailable Cullen MEDICAL RECORDS DIRECTOR.STONE DERRICKMAN AND RIGGERRadha Unavailable [facility] MEDICAL RECORDS DIRECTOR.Elisa JEAN-BAPTISTE Unavailable [facility] MEDICAL RECORDS DIRECTOR.Ruma JEAN-BAPTISTE Unavailable Dr. Dipak Aguilar DO Primary Care Provider Dr. Sukhdev Mark MD Emergency Provider Dr. Sukhdev Mark MD Attending Provider Dr. Abdelrahman Keller MD Emergency Provider Dr. Abdelrahman Keller MD Attending Provider Akira Blanco MD Emergency Provider Dr. Fernanda Triplett MD Admit Provider Dr. Fernanda Triplett MD Attending Provider Dr. Dipak Aguilar DO Primary Care Provider Jas GALDAMEZ, Dr. Santizo Attending Provider Jas GALDAMEZ, Dr. Santizo Emergency Provider Krishna GALDAMEZ, Dr. Quick Attending Provider Krishna GALDAMEZ, Dr. Quick Emergency Provider Bella GALDAMEZ, Akira Emergency Provider Uziel GALDAMEZ, Dr. Fernanda Sow Admit Provider Uziel GALDAMEZ, Dr. Fernanda Sow Other Provider Juice GALDAMEZ, Dr. Ridley Other Provider Jena GALDAMEZ, Dr. Everett Other Provider Dirk GALDAMEZ, Dr. Kenn Moreland Other Provider Eleni GALDAMEZ, Dr. Wild Other Provider Luis M GALDAMEZ, Dr. Gerard Salazar Other Provider Ben GALDAMEZ, Dr. Talavera Attending Provider Unavaila ble Tyler BLACKMON, Dr. Cormier Other Provider Alberta GALDAMEZ, Dr. Lozano Other Provider Sherie GALDAMEZ, Dr. Berkowitz Other Provider Etelvina GALDAMEZ, Dr. Bess Other Provider Kwan BLACKMON, Dr. Zimmer Other Provider Melody GALDAMEZ, Dr. Ilan Yoon Other Provider Earnestine GALDAMEZ, Dr. Loyd Other Provider [phone] Jarrod GALDAMEZ, Dr. Terry Other Provider Bridgette GALDAMEZ, Dr. Whitman Other Provider [phone] Nida GALDAMEZ, Dr. Page Other Provider Daron GALDAMEZ, Dr. Anaya Other Provider Luis GALDAMEZ, Dr. Hou Other Provider Rubina GALDAMEZ, Dr. Loco Other Provider Keny GALDAMEZ, Dr. Ivy Other Provider Unavailedward Tariq MD, Dr. Brown Other Provider [phone] Sagrario GALDAMEZ, Dr. Lee Other Provider Jossue GALDAMEZ, Dr. Paz Other Provider Nick GALDAMEZ, Dr. Rosenbaum Other Provider [phone] Lissa BLACKMON, Dr. May Other Provider [phone] Elizabeth GALDAMEZ, Dr. Moore Other Provider [phone] Morelia Dietrich MD, Dr. Lane Other Provider Elyssa BLACKMON, Dr. Garcia Other Provider Judy GALDAMEZ, Dr. Estevez Other Provider Maxi Blackwood MD, Dr. Rico Other Provider Felipe GALDAMEZ, Dr. Cruz Other Provider [phone] Henrique GALDAMEZ, Dr. Berry Other Provider Rochelle FABRICATING MACHINE OPERATOR-C, Vidhya Other Provider Masood FABRICATING MACHINE OPERATOR-C, Oriana Bedolla Other Provider Juice GALDAMEZ, Dr. Ridley Attending Provider Monica GALDAMEZ, Dr. Rogers Attending Provider Dirk GALDAMEZ, Dr. Kenn Moreland Attending Provider Kylee Rodriguez PA-C Attending Provider Dr. Goran Bowens DO Attending Provider [phone] Bull FABRICATING MACHINE OPERATOR-CAiram Attending Provide r Bull SNOWDEN-CAiram Other Provider Dr. Cece Bella MD Attending Provider Dr. Genia Scott DO Attending Provider Ben GALDAMEZ, Dr. Talavera Other Provider Unavailable ELISA GARCIA Referring Unavailable AGUILAR, DIPAK L Primary Care Unavailable OMAR TREADWELL Attending Unavailable JOSE, ELISA Referring Unavailable AGUILAR, DIPAK L Primary Care Unavailable JOSE, ELISA Attending Unavailable JOSE, ELISA Attending Unavailable AGUILAR, DIPAK [...] Primary Care Unavailable ANANYA FRAZIER Attending Unavailable RADHA BERMAN Referring Unavailabl e AGUILAR, DIPAK L Primary Care Unavailable RUMA HINES Referring Unavailable AGUILAR, DIPAK L Primary Care Unavailable AGUILAR, DIPAK L Primary Care Unavailable RADHA BERMAN Referring Unavailabl ELAINE Westfall JR Attending Unavailable AGUILAR, DIPAK L Primary [...] able AGUILAR, DIPAK L Primary Care Unavailable JOSE, ELISA Referring Unavailable AGUILAR, DIPAK L Primary Care Unavailable SLEIK, KHALED MELOUD Referring Unavailable JOSE, ELISA Attending Unavailable AGUILAR, DIPAK L Primary Care Unavailable AGUILAR, DIPAK L Primary Care Unavailable AGUILAR, DIPAK L Primary Care Unavailable FLORA RUMA SINA Attending Unavailable AGUILAR, DIPAK L Primary Care Unavailable SLEIK, KHALED MELOUD Referring Unavailable Aguilar, Dipak Primary Care Unavailable Kylee Rodriguez Attending Unavailable Fernanda Triplett Admitting Unavailable Fernanda Triplett Consulting Unavailable Khai Bose Consulting Unavailable Cece Bella Consulting Unavailable Kenn Cavazos Consulting Unavailable Junito Knowles Consulting Unavailable Gerard Asencio Consulting Unavailable Genia Scott Consulting Unavailable Ilan Contreras Consulting Unavailable Genia Scott Attending Unavailable Blake Pinzon Consulting Unavailable Woo Rehman Consulting Unavailable Shahriar Pressley Consulting Unavailable Goran Bowens Consulting Unavailable Ilan Oliver Consulting Unavailable Evert Colby Consulting Unavailable Harrison Garay Consulting Unavailable Antonette Angeles Consulting UnavailCamilo Flores Consulting Unavailable Héctor Neri Consulting Unavailable Ameya Smith Consulting Unavailable Beronica Cespedes Consulting Unavailable Cata Bustillo Consulting Unavailable Stephanie Tariq Consulting Unavailable Jesus Zabala Consulting Unavailable Jackson Marcum Consulting Unavailable Robi Romero Consulting Unavailable Lalo Alcaraz Consulting Unavailable Teresa Johnson Consulting Unavailable Ariana Dietrich Consulting Unavailable Jose Bergeron Consulting Unavailable Herb Kim Consulting Unavailable Jacky Blackwood Consulting Unavailable Nancy Wang Consulting UnavailElaine Cummings Consulting Unavailable Vidhya Byrd NP Consulting Unavailable Oriana Correia Consulting Unavailable [facility], Khai Attending Unavailable [facility] Unavailable Sukhdev Mark Attending Unavailable Ilan Contreras Attending Unavailable [facility] Unavailable Fernanda Triplett Consulting Unavailable Fernanda Triplett Admitting Unavailable Juice, Khai Consulting Unavailable Cece Bella Consulting Unavailable Kenn Cavazos Consulting Unavailable Junito Knowles Consulting Unavailable Gerard Asencio Consulting Unavailable Genia Scott Consulting Unavailable Fernanda Triplett Attending Unavailable Ilan Contreras Attending Unavailable Cece Bella Attending Unavailable Airam Gottlieb Consulting Airam Ross Attending Kenn Cornejo Attending Unavailable [facility] Dipak Primary Care Unavailable Wayne, Brandon Chi Attending Unavailable Wayne, Brandon Chi Referring Unavailable Wayne, Brandon Chi Admitting Unavailable [facility] Dipak Primary Care Unavailable Abdelrahman Keller Attending Unavailable Goran Bowens Attending Unavailable [facility] Unavailable Sue Anderson Attending Unavailedward larios Allergies Allergy Classification Reported Allergen(s) Allergy Type Date of Onset Reaction(s) Facility (20 sources) mold extract; Translations: [MOLD] Drug Allergy 1 Cough [facility] Repository (20 sources) CYPRESS; Translations: [CYPRESS] Propensity to adverse reactions (disorder) 1 Other: See Comments [facility] Repository (20 sources) CEDAR; Translations: [CEDAR] Propensity to adverse reactions (disorder) 1 Cough [facility] Repository (20 sources) predniSONE; Translations: [PREDNISONE] Drug Allergy 5 Mental Status Change [facility] Medications Current Medications Medication Drug Class(es) Dates [...] above: Take 1 tablet by sindhu twice daily for 7 days. Blood-Glucose Meter [...] 09-26-2019 docusate sodium 50 mg / sennosides, long-term 8.6 mg oral tablet (1 source) Start: 11-06-2024 Gtbowgivsel-Oorhxflim-Qpvngl er (5 sources) Start: 09-30-2023 Start: 09-30-2023 [...] source) Anticholinergic Start: 11-06-2024 lactobacillus acidophilus 10 [id number] unt oral capsule (5 sources) Start: 09-30-2023 Start: 09-30-2023 take 10 capsules by mouth once daily Lactobacillus Acidophilus (Probiotic) 10 billion cell capsule Active 36123 NMA PO DAILY September 30, 2023 12:00am [...] Multivitamin (Daily Multi-Vitamin) tablet (4 sources) Start: 09-30-2023 Multivitamin ( Daily Multi-Vitamin) tablet [...] Drug Class(es) Dates Sig (Normalized) Sig (Original) [id number] 200 actuat albuterol 0.09 mg/actuat metered dose [...] A DAY Take 1 tablet by sindhu th twice daily. Multivitamin 1 TAB (4 sources) [...] on above: Take 1 capsule by mo [facility] twice daily for 7 days. FOR 7 DAYS. Salters-3 Fatty Acids (Fish Oil Concentrate) 1,000 mg capsule (4 sources) Start: End: take 1 capsule by mouth once daily Salters-3 Fatty Acids (Fish Oil Concentrate) 1,000 mg [...] on above: Take 2 capsules by m out once daily. Problems Active Problems Problem Classification Problem Date Documented Date Episodic/Chronic Acute cerebrovascular disease (11 sources) Cerebrovascular accident; Translations: [Cerebral infarction, unspecified] Onset: 09-05-2024 05-16-2024 Chronic Administrative/social admission (1 source) Mobility poor; Translations: [Other reduced mobility] 05-16-2024 Episodic Biliary tract disease (6 sources) Acute cholecystitis; Translations: [Acute cholecystitis] Onset: 11-06-2024 10-26-2024 Episodic Cardiac dysrhythmias (20 sources) Persistent atrial fibrillation; Translations: [Other persistent atrial fibrillation] Onset: 10-11-2019 Resolved: 11-16-2022 10-11-2019 Chronic Cardiac dysrhythmias (1 source) Tachycardia, unspecified; Translations: [Tachycardia] Onset: 08-22-2024 Episodic Chronic kidney disease (20 sources) Chronic kidney [...] sources) Long-term current use of anticoagulant; Translations: [terminal computer operator (current) use of anticoagulants] 10-04-2023 Episodic Other aftercare (1 source) Encounter for surgical aftercare following surgery on the digestive system; Translations: [Encounter for surgical aftercare following surgery on the digestive system] Onset: 11-08-2024 Episodic Other aftercare (2 sources) terminal computer operator (current) use of anticoagulants; Translations: [terminal computer operator (current) use of anticoagulants] Onset: 11-06-2024 Episodic Other aftercare (2 sources) Encounter for palliative care; Translations: [Encounter for palliative care] Onset: 11-06-2024 Episodic Other and unspecified benign neoplasm (20 [...] nodule] 12-13-2023 Episodic Other lower respiratory disease (3 sources) Other forms of dyspnea; Translations: [SOTO (dyspnea on exertion)] Onset: 08-22-2024 Episodic Other male genital disorders (20 sources) [...] conditions (not mental disorders or infectious disease) (6 sources) Patient encounter status; Translations: [Encounter for screening for cardiovascular disorders] Onset: 08-22-2024 09-08-2023 Episodic Other skin disorders (1 source) [...] hypoxia] 05-16-2024 Chronic Septicemia (except in labor) (6 sources) Sepsis; Translations: [Sepsis, unspecified organism] Onset: 11-06-2024 10-26-2024 Episodic Spondylosis; intervertebral disc disorders; other [...] [Asthma-COPD overlap syndrome (HCC)] Onset: 12-05-2023 Unclassified (2 sources) Acidosis, unspecified; Translations: [Acidosis, unspecified] Onset: 11-06-2024 Unclassified (2 sources) Chronic atrial fibrillation, unspecified; Translations: [Chronic atrial fibrillation, unspecified] Onset: 11-06-2024 Past or Other Problems Problem Classification Problem Date Documented Da te Episodic/Chronic Diabetes mellitus without complication (20 sources) Hyperglycemia; Translations: [Hyperglycemia, unspecified] Onset: 07-03-2009 08-14-2009 Episodic Genitourinary symptoms and ill-defined conditions (20 sources) Increased frequency of urination; Translations: [Frequency of micturition] Onset: 10-21-2016 10-21-2016 Episodic Malaise and fatigue (3 sources) Fatigue; Translations: [Other fatigue] Onset: 12-05-2023 11-02-2023 Episodic Other aftercare (1 source) Encounter for follow-up examination after completed treatment for conditions other than malignant neoplasm; Translations: [Hospital discharge follow-up] Onset: 05-16-2024 Episodic Other circulatory disease (20 sources) Elevated [...] unspecified hand] Onset: 07-27-2017 07-27-2017 Episodic Other lower respiratory disease (5 sources) [...] Test Name Value Interpretation Reference Range Facility Basic Metabolic Profile (BMP )on 11-09-2024 BUN/CRE 10.8 RATIO Normal 10-20 [facility] Comment on above: Performed By: #### L 500.2500 ####[facility] [address] [place], [address] Calcium [Mass/Vol] 9.6 mg/dL Normal 7.6-11.0 [facility] Comment on above: Performed By: #### L 500.2500 ####[facility] [address] [place], [address] Chloride [Moles/Vol] 106 mmol/L Normal 98-108 [facility] Comment on above: Performed By: #### L 500.2500 ####[facility] [address] [place], [address] CO2 [Moles/Vol] 25.8 mmol/L Normal 21.0-32.0 [facility] Comment on above: Performed By: #### L 500.2500 ####[facility] [address] [place], [address] Creatinine [Mass/Vol] 1.28 mg/dL High 0.70-1.20 [facility] Comment on above: Performed By: #### L 500.2500 ####[facility] [address] [place], [address] ECRCL 47.97 ml/min Low 50-250 [facility] Comment on above: Performed By: #### L 500.2500 ####[facility] [address] [place], [address] GAP 12 Normal 5-15 [facility] Comment on above: Performed By: #### L 500.2500 ####[facility] [address] [place], [address] GFR/1.73 sq M.predicted among non-blacks MDRD (S/P/Bld) [Vol rate/Area] 54 mL/min/{1.73_m2} Low >60 [facility] Comment on above: Result Comment: mL/m in/1.73m2 CKD-EPI Creatinine Equation (2020) Performed By: #### L 500.2500 ####[facility] [address] [place], [address] Glucose [Mass/Vol] 111 mg/dL High 70-99 [facility] Comment on above: Performed By: #### L 500.2500 ####[facility] [address] [place], [address] Potassium [Moles/Vol] 3.7 mmol/L Normal 3.3-5.1 [facility] Comment on above: Performed By: #### L 500.2500 ####[facility] [address] [place], [address] Sodium [Moles/Vol] 143 mmol/L Normal 133-145 [facility] Comment on above: Performed By: #### L 500.2500 ####[facility] [address] [place], [address] Urea nitrogen [Mass/Vol] 14 mg/dL Normal 4-19 [facility] Comment on above: Performed By: #### L 500.2500 ####[facility] [address] [place], [address] Bedside Glucoseon 11-08-2024 FINGERSTICK GLU 100 mg/dL Normal 74-106 [facility] Comment on above: Result Comment: LILLIAN KUHN OF PATIENT CARE PER NURSING PROTOCOL Performed By: #### L 501.080 ####[facility] [address] [place], [place], [address] Lipid Profileon 11-08-2024 CHOL:HDL 2.91 Normal [facility] Comment on above: Performed By: #### L 500.4100 ####[facility] [address] [place], [address] Cholesterol [Mass/Vol] 45 mg/dL Normal <=200 [facility] Comment on above: Result Comment: Chol esterol level, Desirable <200 mg/dLBorderline high cholesterol 200-239 mg/dLHigh cholesterol >=240 mg/dLRecommendations of the NCEP Adult Treatment Panel for thefollowing risk-cutoff thresholds for the [place] Americanpulation. Performed By: #### L 500.4100 ####[facility] [address] [place], [address] Cholesterol in HDL [Mass/Vol] 16 mg/dL Low [facility] Comment on above: Result Comment: Samanta onal Cholesterol Education Program (NCEP) guidelines:<40 mg/dL: Low HDL-cholesterol (major risk factor for CHD)>= 60 mg/dL: High HDL-cholesterol (negative risk factor forCHD)HDL-cholesterol is affected by a number of factors, e.g.smoking, exercise, hormones, sex and age. Performed By: #### L 500.4100 ####[facility] [address] [place], [address] Cholesterol in LDL [Mass/Vol] 13 mg/dL Normal [facility] Comment on above: Result Comment: Bord fbhszh=866-205 mg/dL Higher Tqze=714 mg/dL or greaterFriedwald Equation for LDL-C Performed By: #### L 500.4100 ####[facility] [address] [place], [address] Cholesterol in VLDL [Mass/Vol] 17 mg/dL Normal 5-40 [facility] Comment on above: Performed By: #### L 500.4100 ####[facility] [address] [place], [address] Triglyceride [Mass/Vol] 84 mg/dL Normal [facility] Comment on above: Result Comment: The drugs N-Acetylcysteine and Metamizole may falselydepress this assay.Normal range: <150 mg/dLBorderline High: 150-199 mg/dLHigh: 200-499 mg/dLVery High: >500 mg/dL Performed By: #### L 500.4100 ####[facility] [address] [place], [address] Basic Metabolic Profile (BMP )on 11-07-2024 BUN/CRE 11.8 RATIO Normal 10-20 [facility] Comment on above: Performed By: #### L 100.0100, L500.2500 ####[facility] [address] [place], [address] Calcium [Mass/Vol] 9.1 mg/dL Normal 7.6-11.0 [facility] Comment on above: Performed By: #### L 100.0100, L500.2500 ####[facility] [address] [place], [address] Chloride [Moles/Vol] 102 mmol/L Normal 98-108 [facility] Comment on above: Performed By: #### L 100.0100, L500.2500 ####[facility] [address] [place], [address] CO2 [Moles/Vol] 27.8 mmol/L Normal 21.0-32.0 [facility] Comment on above: Performed By: #### L 100.0100, L500.2500 ####[facility] [address] [place], [address] Creatinine [Mass/Vol] 1.37 mg/dL High 0.70-1.20 [facility] Comment on above: Performed By: #### L 100.0100, L500.2500 ####[facility] [address] [place], [address] ECRCL 44.82 ml/min Low 50-250 [facility] Comment on above: Performed By: #### L 100.0100, L500.2500 ####[facility] [address] [place], [address] GAP 11 Normal 5-15 [facility] Comment on above: Performed By: #### L 100.0100, L500.2500 ####[facility] [address] [place], [address] GFR/1.73 sq M.predicted among non-blacks MDRD (S/P/Bld) [Vol rate/Area] 50 mL/min/{1.73_m2} Low >60 [facility] Comment on above: Result Comment: mL/m in/1.73m2 CKD-EPI Creatinine Equation (2020) Performed By: #### L 100.0100, L500.2500 ####[facility] [address] [place], [address] Glucose [Mass/Vol] 101 mg/dL High 70-99 [facility] Comment on above: Performed By: #### L 100.0100, L500.2500 ####[facility] [address] [place], [address] Potassium [Moles/Vol] 3.1 mmol/L Low 3.3-5.1 [facility] Comment on above: Performed By: #### L 100.0100, L500.2500 ####[facility] [address] [place], [address] Sodium [Moles/Vol] 141 mmol/L Normal 133-145 [facility] Comment on above: Performed By: #### L 100.0100, L500.2500 ####[facility] [address] [place], [address] Urea nitrogen [Mass/Vol] 16 mg/dL Normal 4-19 [facility] Comment on above: Performed By: #### L 100.0100, L500.2500 ####[facility] [address] [place], [address] CBC W/Diff, Automatedon 09-02 27-2024 Absolute Lymph 1.37 X10 3/uL Normal 0.83-4.51 [facility] Comment on above: Performed By: #### L 100.0100, L500.2500 ####[facility] [address] [place], [address] Absolute Neut 10.5 X10 3/uL High 2.0-7.7 [facility] Comment on above: Performed By: #### L 100.0100, L500.2500 ####[facility] [address] [place], [address] Basophils/100 WBC (Bld) 1.1 % High 0-[address] [facility] Comment on above: Performed By: #### L 100.0100, L500.2500 ####[facility] [address] [place], [address] Eosinophils/100 WBC (Bld) 2.1 % Normal 0-5 [facility] Comment on above: Performed By: #### L 100.0100, L500.2500 ####[facility] [address] [place], [address] Erythrocyte distribution width (RBC) [Ratio] 15.8 % High 11.6-14.6 [facility] Comment on above: Performed By: #### L 100.0100, L500.2500 ####[facility] [address] [place], [address] Hematocrit (Bld) [Volume fraction] 39.0 % Low 40-54 [facility] Comment on above: Performed By: #### L 100.0100, L500.2500 ####[facility] [address] [place], [address] Hemoglobin (Bld) [Mass/Vol] 12.9 g/dL Low 13.0-16.5 [facility] Comment on above: Performed By: #### L 100.0100, L500.2500 ####[facility] [address] [place], [address] IG% 4.900 High 0.0-0.9 [facility] Comment on above: Result Comment: IG% - Immature Granulocytes (promyelocytes, myelocytes andmetamyelocytes) > 1% indicates that a LEFT SHIFT is Present. Performed By: #### L 100.0100, L500.2500 ####[facility] [address] [place], [address] Lymphocytes/100 WBC (Bld) 9.8 % Low 19-41 [facility] Comment on above: Performed By: #### L 100.0100, L500.2500 ####[facility] [address] [place], [address] MCH (RBC) [Entitic mass] 29.5 pg Normal 27.0-32.0 [facility] Comment on above: Performed By: #### L 100.0100, L500.2500 ####[facility] [address] [place], [address] MCHC (RBC) [Mass/Vol] 33.1 g/dL Normal 32-36 [facility] Comment on above: Performed By: #### L 100.0100, L500.2500 ####[facility] [address] [place], [address] MCV (RBC) [Entitic vol] 89.2 fL Normal 80-[address] [facility] Comment on above: Performed By: #### L 100.0100, L500.2500 ####[facility] [address] [place], [address] Monocytes/100 WBC (Bld) 7.4 % Normal 0-[address] [facility] Comment on above: Performed By: #### L 100.0100, L500.2500 ####[facility] [address] [place], [address] Neutrophils/100 WBC (Bld) 74.7 % High 47-70 [facility] Comment on above: Performed By: #### L 100.0100, L500.2500 ####[facility] [address] [place], [address] Nucleated RBC (Bld) [#/Vol] 0 10*3/uL Normal 0-5 [facility] Comment on above: Performed By: #### L 100.0100, L500.2500 ####[facility] [address] [place], [address] Platelet mean volume (Bld) [Entitic vol] 10.0 fL Normal 6.2-12.0 [facility] Comment on above: Performed By: #### L 100.0100, L500.2500 ####[facility] [address] [place], [address] Platelets (Bld) [#/Vol] 257 10*3/uL Normal 150-450 [facility] Comment on above: Performed By: #### L 100.0100, L500.2500 ####[facility] [address] [place], [address] RBC (Bld) [#/Vol] 4.37 10*6/uL Low 4.6-6.2 [facility] Comment on above: Performed By: #### L 100.0100, L500.2500 ####[facility] [address] [place], [address] RDW SD 49.5 fl High 35.1-43.9 [facility] Comment on above: Performed By: #### L 100.0100, L500.2500 ####[facility] [address] [place], [address] WBC (Bld) [#/Vol] 14.0 10*3/uL High 4.4-11.0 [facility] Comment on above: Performed By: #### L 100.0100, L500.2500 ####[facility] [address] [place], [address] Absolute lymphocyte countOrd ered By: Genia Scott on 11-05-2024 Lymphocytes Auto (Unsp spec) [#/Vol] 0.97 10*3/uL 0.83-4.51 [facility] [facility] Anion gap in Serum or Plasma Ordered By: Genia Scott on 11-05-2024 Anion gap [Moles/Vol] 10 mmol/L 07-05 [facility] BUN/creatinine ratioOrdered By: Genia Scott on 11-05-2024 Urea nitrogen/Creatinine [Mass ratio] 14.5 mg/mg - [facility] Basic Metabolic Profile (BMP )on 11-05-2024 BUN/CRE 14.5 RATIO Normal - [facility] Comment on above: Performed By: #### L 100.0100, L500.2500 ####[facility] [address] [place], [address] Calcium [Mass/Vol] 9.3 mg/dL Normal 7.6-11.0 [facility] Comment on above: Performed By: #### L 100.0100, L500.2500 ####[facility] [address] [place], [address] Chloride [Moles/Vol] 105 mmol/L Normal 98-108 [facility] Comment on above: Performed By: #### L 100.0100, L500.2500 ####[facility] [address] [place], [address] CO2 [Moles/Vol] 26.5 mmol/L Normal 21.0-32.0 [facility] Comment on above: Performed By: #### L 100.0100, L500.2500 ####[facility] [address] [place], [address] Creatinine [Mass/Vol] 1.52 mg/dL High 0.70-1.20 [facility] Comment on above: Performed By: #### L 100.0100, L500.2500 ####[facility] [address] [place], [address] ECRCL 40.84 ml/min Low 50-250 [facility] Comment on above: Performed By: #### L 100.0100, L500.2500 ####[facility] [address] [place], [address] GAP 10 Normal 5-15 [facility] Comment on above: Performed By: #### L 100.0100, L500.2500 ####[facility] [address] [place], [address] GFR/1.73 sq M.predicted among non-blacks MDRD (S/P/Bld) [Vol rate/Area] 44 mL/min/{1.73_m2} Low >60 [facility] Comment on above: Result Comment: mL/m in/1.73m2 CKD-EPI Creatinine Equation (2020) Performed By: #### L 100.0100, L500.2500 ####[facility] [address] [place], [address] Glucose [Mass/Vol] 93 mg/dL Normal 70-99 [facility] Comment on above: Performed By: #### L 100.0100, L500.2500 ####[facility] [address] [place], [address] Potassium [Moles/Vol] 3.4 mmol/L Normal 3.3-5.1 [facility] Comment on above: Performed By: #### L 100.0100, L500.2500 ####[facility] [address] [place], [address] Sodium [Moles/Vol] 141 mmol/L Normal 133-145 [facility] Comment on above: Performed By: #### L 100.0100, L500.2500 ####[facility] [address] [place], [address] Urea nitrogen [Mass/Vol] 22 mg/dL High 4-19 [facility] Comment on above: Performed By: #### L 100.0100, L500.2500 ####[facility] [address] [place], [address] Bedside Glucoseon 11-05-2024 FINGERSTICK GLU 87 mg/dL Normal 74-106 [facility] Comment on above: Result Comment: LILLIAN KUHN OF PATIENT CARE PER NURSING PROTOCOL Performed By: #### L 501.080 ####[facility] [address] [place], [address] Blood band neutrophil count as percentage of total leukocytesOrdered By: Genia Scott on 11-05-2024 Band form neutrophils/100 WBC (Bld) 2 % 0-5 [facility] Blood eosinophils/100 leukoc ytesOrdered By: Genia Scott on 11-05-2024 Eosinophils/100 WBC (Bld) 1 % 0-5 [facility] Blood lymphocytes/100 leukoc ytesOrdered By: Genia Scott on 11-05-2024 Lymphocytes/100 WBC (Bld) 7 % Low 19-41 [facility] Blood metamyelocytes/100 dejuan kocytesOrdered By: Genia Scott on 11-05-2024 Metamyelocytes/100 WBC (Bld) 1 % 0-1 [facility] Blood monocytes/100 leukocyt esOrdered By: Genia Scott on 11-05-2024 Monocytes/100 WBC (Bld) 2 % 0-[address] [facility] Blood segmented neutrophils/ 100 leukocytesOrdered By: Genia Scott on 11-05-2024 Segmented neutrophils/100 WBC (Bld) 86 % High 47-70 [facility] CBC W/Diff, Automatedon 09-1 Absolute Lymph 0.97 X10 3/uL Normal 0.83-4.51 [facility] Comment on above: Performed By: #### L 100.0100, L500.2500 ####[facility] [address] [place], [address] Absolute Neut 12.1 X10 3/uL High 2.0-7.7 [facility] Comment on above: Performed By: #### L 100.0100, L500.2500 ####[facility] [address] [place], [address] BAND 2 Normal 0-5 [facility] Comment on above: Performed By: #### L 100.0100, L500.2500 ####[facility] [address] [place], [address] Eosinophils/100 WBC (Bld) 1 % Normal 0-5 [facility] Comment on above: Performed By: #### L 100.0100, L500.2500 ####[facility] [address] [place], [address] Lymphocytes (Bld) [#/Vol] 7 10*3/uL Low 19-41 [facility] Comment on above: Performed By: #### L 100.0100, L500.2500 ####[facility] [address] [place], [address] META 1 Normal 0-1 [facility] Comment on above: Performed By: #### L 100.0100, L500.2500 ####[facility] [address] [place], [address] Metamyelocytes/100 WBC (Bld) 1 % High 0-0 [facility] Comment on above: Performed By: #### L 100.0100, L500.2500 ####[facility] [address] [place], [address] MONOCYTE 2 Normal 0-10 [facility] Comment on above: Performed By: #### L 100.0100, L500.2500 ####[facility] [address] [place], [address] PLT EST ADEQUATE Normal ADEQ [facility] Comment on above: Performed By: #### L 100.0100, L500.2500 ####[facility] [address] [place], [address] RED CELL MORPH NORM C+C Normal NORM C C [facility] Comment on above: Performed By: #### L 100.0100, L500.2500 ####[facility] [address] [place], [address] SEGS 86 High 47-70 [facility] Comment on above: Performed By: #### L 100.0100, L500.2500 ####[facility] [address] [place], [address] TOTAL CELLS 100 Normal MANUAL DIFF [facility] Comment on above: Performed By: #### L 100.0100, L500.2500 ####[facility] [address] [place], [address] Carbon dioxide, total [Moles /volume] in Central venous bloodOrdered By: Genia Scott on 11-05-2024 CO2 [Moles/Vol] 26.5 mmol/L 21.0-32.0 [facility] Chloride assayOrdered By: Radha Scott on 11-05-2024 Chloride [Moles/Vol] 105 mmol/L 98-108 [facility] Erythrocyte distribution wid th ratioOrdered By: Genia Scott on 11-05-2024 Erythrocyte distribution width (RBC) [Ratio] 15.4 % High 11.6-14.6 [facility] Erythrocyte distribution wid th standard deviationOrdered By: Genia Scott on 11-05-2024 Erythrocyte distribution width (RBC) [Ratio] 49.2 fl High 35.1-43.9 [facility] Erythrocyte morphology asses smentOrdered By: Genia Scott on 11-05-2024 RBC morphology finding Nom (Bld) NORM C+C NORMAL NORM C&C [facility] Glomerular filtration rate ( GFR) estimation/1.73 sq m using serum, plasma, or whole bOrdered By: Genia Scott on 11-05-2024 GFR/1.73 sq M.predicted among non-blacks MDRD (S/P/Bld) [Vol rate/Area] 44 mL/min/{1.73_m2} Low >60 [facility] Glucose measurement at [facility] deOrdered By: Genia Scott on 11-05-2024 Glucose [Mass/Vol] 87 mg/dL 74-106 [facility] Hematocrit Auto (Bld) [Volum e fraction]Ordered By: Genia Scott on 11-05-2024 Hematocrit (Bld) [Volume fraction] 35.0 % Low 40-54 [facility] Hemoglobin measurementOrdere d By: Genia Scott on 11-05-2024 Hemoglobin (Bld) [Mass/Vol] 11.7 g/dL Low 13.0-16.5 [facility] MCV (mean corpuscular volume ) determinationOrdered By: Genia Scott on 11-05-2024 MCV (RBC) [Entitic vol] 88.2 fL 80-[address] [facility] Mean corpuscular hemoglobin (MCH) determinationOrdered By: Genia Scott on 11-05-2024 MCH (RBC) [Entitic mass] 29.5 pg 27.0-32.0 [facility] Platelet countOrdered By: Radha Scott on 11-05-2024 Platelets (Bld) [#/Vol] 225 10*3/uL 150-450 [facility] Platelet estimateOrdered By: Genia Scott on 11-05-2024 Platelets LM Ql (Bld) ADEQUATE ADEQ [facility] Potassium measurement (mass/ volume)Ordered By: Genia Scott on 11-05-2024 Potassium (Unsp spec) [Mass/Vol] 3.4 mmol/L 3.3-5.1 [facility] RBC Auto (Bld) [#/Vol]Ordere d By: Genia Scott on 11-05-2024 RBC (Bld) [#/Vol] 3.97 10*6/uL Low 4.6-6.2 [facility] Serum creatinine measurement (mass/volume)Ordered By: Genia Scott on 11-05-2024 Creatinine [Mass/Vol] 1.52 mg/dL High 0.70-1.20 [facility] Serum glucose measurement (m ass/volume)Ordered By: Genia Scott on 11-05-2024 Glucose [Mass/Vol] 93 mg/dL 70-99 [facility] Serum or plasma calcium maritza urement (mass/volume)Ordered By: Genia Scott on 11-05-2024 Calcium [Mass/Vol] 9.3 mg/dL 7.6-11.0 [facility] Serum or plasma urea nitroge n measurement (mass/volume)Ordered By: Genia Scott on 11-05-2024 Urea nitrogen [Mass/Vol] 22 mg/dL High 4-19 [facility] Sodium levelOrdered By: America Scott on 11-05-2024 Sodium [Moles/Vol] 141 mmol/L 133-145 [facility] Total cell countOrdered By: Genia Scott on 11-05-2024 Cells counted Molgen (Bld/Tiss) [#] 100 MANUAL DIFF [facility] White blood cell (WBC) count Ordered By: Genia Scott on 11-05-2024 WBC (Bld) [#/Vol] 13.8 10*3/uL High 4.4-11.0 [facility] Bedside Glucoseon 11-04-2024 FINGERSTICK GLU 106 mg/dL Normal 74-106 [facility] Comment on above: Result Comment: LILLIAN GEMENT OF PATIENT CARE PER NURSING PROTOCOL Performed By: #### L 501.080 ####[facility] [address] [facility] [address] FINGERSTICK GLU 114 mg/dL High 74-106 [facility] Comment on above: Result Comment: LILLIAN GEMENT OF PATIENT CARE PER NURSING PROTOCOL Performed By: #### L 501.080 ####[facility] [address] [place], [address] FINGERSTICK GLU 90 mg/dL Normal 74-106 [facility] Comment on above: Result Comment: LILLIAN GEMENT OF PATIENT CARE PER NURSING PROTOCOL Performed By: #### L 501.080 ####[facility] [address] [place], [address] FINGERSTICK GLU 90 mg/dL Normal 74-106 [facility] Comment on above: Result Comment: LILLIAN GEMENT OF PATIENT CARE PER NURSING PROTOCOL Performed By: #### L 501.080 ####[facility] [address] [place], [address] Bilirubin, totalOrdered By: Genia Scott on 11-04-2024 Bilirubin [Mass/Vol] 0.79 mg/dL 0.00-1.30 [facility] CBC W/Diff, Automatedon 10-22 Absolute Lymph 0.75 X10 3/uL Low 0.83-4.51 [facility] Comment on above: Performed By: #### L 500.4050, L100.0100 ####[facility] [address] [place], [address] Absolute Neut 13.0 X10 3/uL High 2.0-7.7 [facility] Comment on above: Performed By: #### L 500.4050, L100.0100 ####[facility] [address] [place], [address] Comprehensive Metabolic Prof ilon 11-04-2024 Albumin [Mass/Vol] 2.6 g/dL Low 3.4-4.8 [facility] Comment on above: Performed By: #### L 500.4050, L100.0100 ####[facility] [address] [place], [address] Albumin/Globulin [Mass ratio] 0.9 {ratio} Normal 0.9-2.4 [facility] Comment on above: Performed By: #### L 500.4050, L100.0100 ####[facility] [address] [place], [address] ALK PHOS 185 U/L High 40-129 [facility] Comment on above: Performed By: #### L 500.4050, L100.0100 ####[facility] [address] [place], [address] ALT [Catalytic activity/Vol] 49 U/L High <=46 [facility] Comment on above: Performed By: #### L 500.4050, L100.0100 ####[facility] [address] [place], [address] AST [Catalytic activity/Vol] 43 U/L High <=37 [facility] Comment on above: Performed By: #### L 500.4050, L100.0100 ####[facility] [address] [place], [address] Bilirubin [Mass/Vol] 0.79 mg/dL Normal 0.00-1.30 [facility] Comment on above: Performed By: #### L 500.4050, L100.0100 ####[facility] [address] [place], [address] BUN/CRE 15.3 RATIO Normal 10-20 [facility] Comment on above: Performed By: #### L 500.4050, L100.0100 ####[facility] [address] [place], [address] Calcium [Mass/Vol] 9.4 mg/dL Normal 7.6-11.0 [facility] Comment on above: Performed By: #### L 500.4050, L100.0100 ####[facility] [address] [place], [address] Chloride [Moles/Vol] 106 mmol/L Normal 98-108 [facility] Comment on above: Performed By: #### L 500.4050, L100.0100 ####[facility] [address] [place], [address] CO2 [Moles/Vol] 23.6 mmol/L Normal 21.0-32.0 [facility] Comment on above: Performed By: #### L 500.4050, L100.0100 ####[facility] [address] [place], [address] Creatinine [Mass/Vol] 1.41 mg/dL High 0.70-1.20 [facility] Comment on above: Performed By: #### L 500.4050, L100.0100 ####[facility] [address] [place], [address] ECRCL 44.15 ml/min Low 50-250 [facility] Comment on above: Performed By: #### L 500.4050, L100.0100 ####[facility] [address] [place], [address] GAP 12 Normal 5-15 [facility] Comment on above: Performed By: #### L 500.4050, L100.0100 ####[facility] [address] [place], [address] GFR/1.73 sq M.predicted among non-blacks MDRD (S/P/Bld) [Vol rate/Area] 48 mL/min/{1.73_m2} Low >60 [facility] Comment on above: Result Comment: mL/m in/1.73m2 CKD-EPI Creatinine Equation (2020) Performed By: #### L 500.4050, L100.0100 ####[facility] [address] [place], [address] Globulin (S) [Mass/Vol] 2.9 g/dL Normal 2.2-4.[address] [facility] Comment on above: Performed By: #### L 500.4050, L100.0100 ####[facility] [address] [place], [address] Glucose [Mass/Vol] 92 mg/dL Normal 70-99 [facility] Comment on above: Performed By: #### L 500.4050, L100.0100 ####[facility] [address] [place], [address] Potassium [Moles/Vol] 3.5 mmol/L Normal 3.3-5.1 [facility] Comment on above: Performed By: #### L 500.4050, L100.0100 ####[facility] [address] [place], [address] Sodium [Moles/Vol] 141 mmol/L Normal 133-145 [facility] Comment on above: Performed By: #### L 500.4050, L100.0100 ####[facility] [address] [place], [address] T PROT 5.5 g/dL Low 5.9-8.4 [facility] Comment on above: Performed By: #### L 500.4050, L100.0100 ####[facility] [address] [place], [address] Urea nitrogen [Mass/Vol] 22 mg/dL High 4-19 [facility] Comment on above: Performed By: #### L 500.4050, L100.0100 ####[facility] [address] [place], [address] No Panel InformationOrdered By: Genia Scott on 11-04-2024 43 U/L High <38 [facility] Respiratory Cultureon 2024 RESPC List Antibiotics Las t 48 Hours? flagyl No Streptococcus pneumoniae, beta-hemolytic Streptococcus or Staphylococcus aureus isolated. Microorganism Spec Cult Yeast, not Carine albicans Amount Growth 3+ Normal [facility] Comment on above: Performed By: #### M 100.2000, M100.2400 ####[facility] [address] [place], [address] Serum globulin measurementOr dered By: Genia Scott on 11-04-2024 Globulin (S) [Mass/Vol] 2.9 g/dL 2.2-4.2 [facility] Serum or plasma alanine lofton otransferase (ALT) measurementOrdered By: Genia Scott on 11-04-2024 ALT [Catalytic activity/Vol] 49 U/L High <47 [facility] Serum or plasma albumin maritza urement (mass/volume)Ordered By: Genia Scott on 11-04-2024 Albumin [Mass/Vol] 2.6 g/dL Low 3.4-4.8 [facility] Serum or plasma albumin/glob ulin mass ratioOrdered By: Genia Scott on 11-04-2024 Albumin/Globulin [Mass ratio] 0.9 {ratio} 0.9-2.4 [facility] Serum or plasma alkaline awa sphatase measurementOrdered By: Genia Scott on 11-04-2024 ALP [Catalytic activity/Vol] 185 U/L High 40-129 [facility] Total proteinOrdered By: Keisha Scott on 11-04-2024 Protein [Mass/Vol] 5.5 g/dL Low 5.9-8.4 [facility] Basic Metabolic Profile (BMP )on 11-03-2024 BUN/CRE 13.4 RATIO Normal 10-20 [facility] Comment on above: Performed By: #### L 501.5200, L501.2300, L500.2500, L100.0500 ####[facility] [address] [place], [address] Calcium [Mass/Vol] 9.1 mg/dL Normal 7.6-11.0 [facility] Comment on above: Performed By: #### L 501.5200, L501.2300, L500.2500, L100.0500 ####[facility] [address] [place], [address] Chloride [Moles/Vol] 108 mmol/L Normal 98-108 [facility] Comment on above: Performed By: #### L 501.5200, L501.2300, L500.2500, L100.0500 ####[facility] [address] [place], [address] CO2 [Moles/Vol] 21.7 mmol/L Normal 21.0-32.0 [facility] Comment on above: Performed By: #### L 501.5200, L501.2300, L500.2500, L100.0500 ####[facility] [address] [place], [address] Creatinine [Mass/Vol] 1.37 mg/dL High 0.70-1.20 [facility] Comment on above: Performed By: #### L 501.5200, L501.2300, L500.2500, L100.0500 ####[facility] [address] [place], [address] ECRCL 46.05 ml/min Low 50-250 [facility] Comment on above: Performed By: #### L 501.5200, L501.2300, L500.2500, L100.0500 ####[facility] [address] [place], [address] GAP 13 Normal 5-15 [facility] Comment on above: Performed By: #### L 501.5200, L501.2300, L500.2500, L100.0500 ####[facility] [address] [place], [address] GFR/1.73 sq M.predicted among non-blacks MDRD (S/P/Bld) [Vol rate/Area] 50 mL/min/{1.73_m2} Low >60 [facility] Comment on above: Result Comment: mL/m in/1.73m2 CKD-EPI Creatinine Equation (2020) Performed By: #### L 501.5200, L501.2300, L500.2500, L100.0500 ####[facility] [address] [place], [address] Glucose [Mass/Vol] 107 mg/dL High 70-99 [facility] Comment on above: Performed By: #### L 501.5200, L501.2300, L500.2500, L100.0500 ####[facility] [address] [place], [address] Potassium [Moles/Vol] 3.9 mmol/L Normal 3.3-5.1 [facility] Comment on above: Performed By: #### L 501.5200, L501.2300, L500.2500, L100.0500 ####[facility] [address] [place], [address] Sodium [Moles/Vol] 142 mmol/L Normal 133-145 [facility] Comment on above: Performed By: #### L 501.5200, L501.2300, L500.2500, L100.0500 ####[facility] [address] [place], [address] Urea nitrogen [Mass/Vol] 18 mg/dL Normal 4-19 [facility] Comment on above: Performed By: #### L 501.5200, L501.2300, L500.2500, L100.0500 ####[facility] [address] [place], [address] Bedside Glucoseon 11-03-2024 FINGERSTICK GLU 105 mg/dL Normal 74-106 [facility] Comment on above: Result Comment: LILLIAN GEMENT OF PATIENT CARE PER NURSING PROTOCOL Performed By: #### L 501.080 ####[facility] [address] [place], [address] FINGERSTICK GLU 100 mg/dL Normal 74-106 [facility] Comment on above: Result Comment: LILLIAN GEMENT OF PATIENT CARE PER NURSING PROTOCOL Performed By: #### L 501.080 ####[facility] [address] [place], [address] FINGERSTICK GLU 117 mg/dL High 74-106 [facility] Comment on above: Result Comment: LILLIAN GEMENT OF PATIENT CARE PER NURSING PROTOCOL Performed By: #### L 501.080 ####[facility] [address] [place], [address] FINGERSTICK GLU 102 mg/dL Normal 74-106 [facility] Comment on above: Result Comment: LILLIAN GEMENT OF PATIENT CARE PER NURSING PROTOCOL Performed By: #### L 501.080 ####[facility] [address] [place], [address] CBC-Complete Blood Cnt No Di ffon 11-03-2024 Erythrocyte distribution width (RBC) [Ratio] 15.4 % High 11.6-14.6 [facility] Comment on above: Performed By: #### L 501.5200, L501.2300, L500.2500, L100.0500 ####[facility] [address] [place], [address] Hematocrit (Bld) [Volume fraction] 38.7 % Low 40-54 [facility] Comment on above: Performed By: #### L 501.5200, L501.2300, L500.2500, L100.0500 ####[facility] [address] [place], [address] Hemoglobin (Bld) [Mass/Vol] 13.0 g/dL Normal 13.0-16.5 [facility] Comment on above: Performed By: #### L 501.5200, L501.2300, L500.2500, L100.0500 ####[facility] [address] [place], [address] MCH (RBC) [Entitic mass] 29.2 pg Normal 27.0-32.0 [facility] Comment on above: Performed By: #### L 501.5200, L501.2300, L500.2500, L100.0500 ####[facility] [address] [place], [address] MCHC (RBC) [Mass/Vol] 33.6 g/dL Normal 32-36 [facility] Comment on above: Performed By: #### L 501.5200, L501.2300, L500.2500, L100.0500 ####[facility] [address] [place], [address] MCV (RBC) [Entitic vol] 87.0 fL Normal 80-[address] [facility] Comment on above: Performed By: #### L 501.5200, L501.2300, L500.2500, L100.0500 ####[facility] [address] [place], [address] Platelet mean volume (Bld) [Entitic vol] 10.0 fL Normal 6.2-12.0 [facility] Comment on above: Performed By: #### L 501.5200, L501.2300, L500.2500, L100.0500 ####[facility] [address] [place], [address] Platelets (Bld) [#/Vol] 197 10*3/uL Normal 150-450 [facility] Comment on above: Performed By: #### L 501.5200, L501.2300, L500.2500, L100.0500 ####[facility] [address] [place], [address] RBC (Bld) [#/Vol] 4.45 10*6/uL Low 4.6-6.2 [facility] Comment on above: Performed By: #### L 501.5200, L501.2300, L500.2500, L100.0500 ####[facility] [address] [place], [address] RDW SD 49.1 fl High 35.1-43.9 [facility] Comment on above: Performed By: #### L 501.5200, L501.2300, L500.2500, L100.0500 ####[facility] [address] [place], [address] WBC (Bld) [#/Vol] 16.4 10*3/uL High 4.4-11.0 [facility] Comment on above: Performed By: #### L 501.5200, L501.2300, L500.2500, L100.0500 ####[facility] [address] [place], [address] Magnesiumon 11-03-2024 Magnesium [Mass/Vol] 1.7 mg/dL Normal 1.5-2.2 [facility] Comment on above: Performed By: #### L 501.5200, L501.2300, L500.2500, L100.0500 ####[facility] [address] [place], [address] Magnesium measurement (mass/ volume)Ordered By: Genia Scott on 11-03-2024 Magnesium (Unsp spec) [Mass/Vol] 1.7 mg/dL 1.5-2.2 [facility] Phosphoruson 11-03-2024 Phosphate [Mass/Vol] 3.1 mg/dL Normal 2.7-4.5 [facility] Comment on above: Performed By: #### L 501.5200, L501.2300, L500.2500, L100.0500 ####[facility] [address] [place], [address] Pro- Brain NATRIURETIC PEPTI Zach 11-03-2024 Natriuretic peptide B (Bld) [Mass/Vol] 6060 pg/mL High <=1800 [facility] Comment on above: Result Comment: Hear t Failure Unlikely: < 300 pg/mLHeart Failure Likely< 50 Years: > 450 pg/mL50-75 Years: > 900 pg/mL>75 Years: > 1800 pg/mL Performed By: #### L 503.7505 ####[facility] [address] [place], [place], [address] Assessment of wrist artery p atency prior to arterial punctureOrdered By: Genia Scott on 11-02-2024 Arterial patency Wrist artery --pre arterial puncture Positive [facility] Bedside Glucoseon 11-02-2024 FINGERSTICK GLU 109 mg/dL High 74-106 [facility] Comment on above: Result Comment: LILLIAN GEMENT OF PATIENT CARE PER NURSING PROTOCOL Performed By: #### L 501.080 ####[facility] [address] [place], [address] FINGERSTICK GLU 108 mg/dL High 74-106 [facility] Comment on above: Result Comment: LILLIAN GEMENT OF PATIENT CARE PER NURSING PROTOCOL Performed By: #### L 501.080 ####[facility] [address] [place], [address] FINGERSTICK GLU 121 mg/dL High 74-106 [facility] Comment on above: Result Comment: LILLIAN GEMENT OF PATIENT CARE PER NURSING PROTOCOL Performed By: #### L 501.080 ####[facility] [address] [place], [address] FINGERSTICK GLU 96 mg/dL Normal 74-106 [facility] Comment on above: Result Comment: LILLIAN GEMENT OF PATIENT CARE PER NURSING PROTOCOL Performed By: #### L 501.080 ####[facility] [address] [place], [address] Blood Gases by CPSon 025 RICHARD TEST Positive Normal [facility] Comment on above: Performed By: #### L 9000.0800 ####[facility] [address] [place], [address] Base excess Calc (Bld) [Moles/Vol] 1 mmol/L Normal -2 to +2 [facility] Comment on above: Performed By: #### L 9000.0800 ####[facility] [address] [place], [address] Blood Gas Type ART Normal [facility] Comment on above: Performed By: #### L 9000.0800 ####[facility] [address] [place], [address] CO2 [Moles/Vol] 25 mmol/L Normal [facility] Comment on above: Performed By: #### L 9000.0800 ####[facility] [address] [place], [address] FI02 40.0 Normal [facility] Comment on above: Performed By: #### L 9000.0800 ####[facility] [address] [place], [address] HCO3 (Bld) [Moles/Vol] 24.2 mmol/L Normal 22-[address] [facility] Comment on above: Performed By: #### L 9000.0800 ####[facility] [address] [place], [address] Mode Not entered Normal [facility] Comment on above: Performed By: #### L 9000.0800 ####[facility] [address] [place], [address] O2 Delivery Dev BiPAP Normal [facility] Comment on above: Performed By: #### L 9000.0800 ####[facility] [address] [place], [address] pCO2 32.8 mmHg Low 35-45 [facility] Comment on above: Performed By: #### L 9000.0800 ####[facility] [address] [place], [address] PEEP 6 Normal [facility] Comment on above: Performed By: #### L 9000.0800 ####[facility] [address] [place], [address] pH (Bld) 7.48 [pH] High 7.35-7.45 [facility] Comment on above: Performed By: #### L 9000.0800 ####[facility] [address] [place], [address] PIP 12 Normal [facility] Comment on above: Performed By: #### L 9000.0800 ####[facility] [address] [place], [address] PO2 78 mmHG Normal 75-100 [facility] Comment on above: Performed By: #### L 9000.0800 ####[facility] [address] [place], [address] RR 12 Normal [facility] Comment on above: Performed By: #### L 9000.0800 ####[facility] [address] [place], [address] SITE R Radial Normal [facility] Comment on above: Performed By: #### L 9000.0800 ####[facility] [address] [place], [address] SO2 96 Normal 95-99 [facility] Comment on above: Performed By: #### L 9000.0800 ####[facility] [address] [place], [address] Blood base excess determinat ionOrdered By: Genia Scott on 11-02-2024 Base excess Calc (BldV) [Moles/Vol] 1 mmol/L -2-2 [facility] Blood bicarbonate measuremen tOrdered By: Genia Scott on 11-02-2024 HCO3 (Bld) [Moles/Vol] 24.2 mmol/L 22-[address] [facility] Blood manual differential co mment interpretation (narrative result)Ordered By: Khai Bose on 11-02-2024 Manual differential comment [place] (Bld) [Interp] SCANNED [facility] Blood polychromasia detectio n by light microscopyOrdered By: Khai Bose on 11-02-2024 Polychromasia LM Ql (Bld) RARE [facility] CBC W/Diff, Automatedon 10-22 ATYPICAL LYMPH 2+ Normal [facility] Comment on above: Performed By: #### L 501.5200, L500.4050, L100.0100 ####[facility] [address] [place], [address] PATH REV May foll Normal [facility] Comment on above: Performed By: #### L 501.5200, L500.4050, L100.0100 ####[facility] [address] [place], [address] Absolute Lymph 1.01 X10 3/uL Normal 0.83-4.51 [facility] Comment on above: Performed By: #### L 501.5200, L500.4050, L100.0100 ####[facility] [address] [place], [address] Absolute Neut 9.1 X10 3/uL High 2.0-7.7 [facility] Comment on above: Performed By: #### L 501.5200, L500.4050, L100.0100 ####[facility] [address] [place], [address] SMEAR COMMENT SCANNED Normal [facility] Comment on above: Result Comment: ATYP ICAL LYMPHS 1+ Performed By: #### L 501.5200, L500.4050, L100.0100 ####[facility] [address] [place], [address] ACANTHOCYTE RARE Normal [facility] Comment on above: Performed By: #### L 501.5200, L500.4050, L100.0100 ####[facility] [address] [place], [address] OVALOCYTE RAR Normal [facility] Comment on above: Performed By: #### L 501.5200, L500.4050, L100.0100 ####[facility] [address] [place], [address] POLYCHROMASIA RARE Normal [facility] Comment on above: Performed By: #### L 501.5200, L500.4050, L100.0100 ####[facility] [address] [place], [address] BEAU CELLS RARE Normal [facility] Comment on above: Performed By: #### L 501.5200, L500.4050, L100.0100 ####[facility] [address] [place], [address] PLT EST ADEQUATE Normal ADEQ [facility] Comment on above: Performed By: #### L 501.5200, L500.4050, L100.0100 ####[facility] [address] [place], [address] PLT MORPH GIANT Normal [facility] Comment on above: Performed By: #### L 501.5200, L500.4050, L100.0100 ####[facility] [address] [place], [address] SMUDGE CELLS 2+ Normal [facility] Comment on above: Performed By: #### L 501.5200, L500.4050, L100.0100 ####[facility] [address] [place], [address] Eosinophils/100 WBC (Bld) 2 % Normal 0-5 [facility] Comment on above: Performed By: #### L 501.5200, L500.4050, L100.0100 ####[facility] [address] [place], [address] Lymphocytes (Bld) [#/Vol] 9 10*3/uL Low 19-41 [facility] Comment on above: Performed By: #### L 501.5200, L500.4050, L100.0100 ####[facility] [address] [place], [address] META 1 Normal 0-1 [facility] Comment on above: Performed By: #### L 501.5200, L500.4050, L100.0100 ####[facility] [address] [place], [address] Metamyelocytes/100 WBC (Bld) 1 % High 0-0 [facility] Comment on above: Performed By: #### L 501.5200, L500.4050, L100.0100 ####[facility] [address] [place], [address] MONOCYTE 6 Normal 0-10 [facility] Comment on above: Performed By: #### L 501.5200, L500.4050, L100.0100 ####[facility] [address] [place], [address] SEGS 81 High 47-70 [facility] Comment on above: Performed By: #### L 501.5200, L500.4050, L100.0100 ####[facility] [address] [place], [address] TOTAL CELLS 100 Normal MANUAL DIFF [facility] Comment on above: Performed By: #### L 501.5200, L500.4050, L100.0100 ####[facility] [address] [place], [address] Chest 1 View (Portable)on Chest 1 View (Portable) Normal [facility] Comprehensive Metabolic Prof ilon 11-02-2024 Albumin [Mass/Vol] 2.5 g/dL Low 3.4-4.8 [facility] Comment on above: Performed By: #### L 501.5200, L500.4050, L100.0100 ####[facility] [address] [place], [address] Albumin/Globulin [Mass ratio] 1.0 {ratio} Normal 0.9-2.4 [facility] Comment on above: Performed By: #### L 501.5200, L500.4050, L100.0100 ####[facility] [address] [place], [address] ALK PHOS 179 U/L High 40-129 [facility] Comment on above: Performed By: #### L 501.5200, L500.4050, L100.0100 ####[facility] [address] [place], [address] ALT [Catalytic activity/Vol] 79 U/L High <=46 [facility] Comment on above: Performed By: #### L 501.5200, L500.4050, L100.0100 ####[facility] [address] [place], [address] AST [Catalytic activity/Vol] 67 U/L High <=37 [facility] Comment on above: Performed By: #### L 501.5200, L500.4050, L100.0100 ####[facility] [address] [place], [address] Bilirubin [Mass/Vol] 1.01 mg/dL Normal 0.00-1.30 [facility] Comment on above: Performed By: #### L 501.5200, L500.4050, L100.0100 ####[facility] [address] [place], [address] BUN/CRE 16.3 RATIO Normal 10-20 [facility] Comment on above: Performed By: #### L 501.5200, L500.4050, L100.0100 ####[facility] [address] [place], [address] Calcium [Mass/Vol] 8.4 mg/dL Normal 7.6-11.0 [facility] Comment on above: Performed By: #### L 501.5200, L500.4050, L100.0100 ####[facility] [address] [place], [address] Chloride [Moles/Vol] 109 mmol/L High 98-108 [facility] Comment on above: Performed By: #### L 501.5200, L500.4050, L100.0100 ####[facility] [address] [place], [address] CO2 [Moles/Vol] 22.8 mmol/L Normal 21.0-32.0 [facility] Comment on above: Performed By: #### L 501.5200, L500.4050, L100.0100 ####[facility] [address] [place], [address] Creatinine [Mass/Vol] 1.04 mg/dL Normal 0.70-1.20 [facility] Comment on above: Performed By: #### L 501.5200, L500.4050, L100.0100 ####[facility] [address] [place], [address] ECRCL 59.72 ml/min Normal 50-250 [facility] Comment on above: Performed By: #### L 501.5200, L500.4050, L100.0100 ####[facility] [address] [place], [address] GAP 9 Normal 5-15 [facility] Comment on above: Performed By: #### L 501.5200, L500.4050, L100.0100 ####[facility] [address] [place], [address] GFR/1.73 sq M.predicted among non-blacks MDRD (S/P/Bld) [Vol rate/Area] 69 mL/min/{1.73_m2} Normal >60 [facility] Comment on above: Result Comment: mL/m in/1.73m2 CKD-EPI Creatinine Equation (2020) Performed By: #### L 501.5200, L500.4050, L100.0100 ####[facility] [address] [place], [address] Globulin (S) [Mass/Vol] 2.6 g/dL Normal 2.2-4.[address] [facility] Comment on above: Performed By: #### L 501.5200, L500.4050, L100.0100 ####[facility] [address] [place], [address] Glucose [Mass/Vol] 136 mg/dL High 70-99 [facility] Comment on above: Performed By: #### L 501.5200, L500.4050, L100.0100 ####[facility] [address] [place], [address] Potassium [Moles/Vol] 3.7 mmol/L Normal 3.3-5.1 [facility] Comment on above: Performed By: #### L 501.5200, L500.4050, L100.0100 ####[facility] [address] [place], [address] Sodium [Moles/Vol] 141 mmol/L Normal 133-145 [facility] Comment on above: Performed By: #### L 501.5200, L500.4050, L100.0100 ####[facility] [address] [place], [address] T PROT 5.1 g/dL Low 5.9-8.4 [facility] Comment on above: Performed By: #### L 501.5200, L500.4050, L100.0100 ####[facility] [address] [place], [address] Urea nitrogen [Mass/Vol] 17 mg/dL Normal 4-19 [facility] Comment on above: Performed By: #### L 501.5200, L500.4050, L100.0100 ####[facility] [address] [place], [address] Crenated erythrocyte detecti on by light microscopyOrdered By: Khai Bose on 11-02-2024 Beau cells LM Ql (Bld) RARE [facility] Culture, Anaerobic Any Sourc rohan 11-02-2024 CUAN Normal [facility] Comment on above: Performed By: #### M 100.4001, M100.2000, M100.2900 ####[facility] [address] [place], [address] Gram Stainon 11-02-2024 GS List Antibiotics Las t 48 Hours? flagyl Acceptable Specimen? Yes (<25 Epithelial cells per/lpf) Gram Stain 4+ Yeast Like Organisms Rare Epithelial cells No White Blood Cells Normal [facility] Comment on above: Performed By: #### M 100.2000, M100.2400 ####[facility] [address] [place], [address] Gram stainOrdered By: Fernanda Triplett on 11-02-2024 Microscopic observation Gram stain Nom (Unsp spec) [facility] Magnesiumon 11-02-2024 Magnesium [Mass/Vol] 1.4 mg/dL Low 1.5-2.2 [facility] Comment on above: Performed By: #### L 501.5200, L500.4050, L100.0100 ####[facility] [address] [place], [address] Measurement, pHOrdered By: Yane Scott on 11-02-2024 pH (Unsp spec) 7.48 [pH] High 7.35-7.45 [facility] Microbial respiratory cultur eOrdered By: Fernanda Triplett on 11-02-2024 Microorganism identified Cx Nom (Unsp spec) Yeast, not Carine albicans Abnormal [facility] Natriuretic peptide.B prohor adebayo N-Terminal [Mass/volume] in Serum or PlasmaOrdered By: Arlin Paniagua on 11-02-2024 Natriuretic peptide.B prohormone N-Terminal [Mass/Vol] 6060 pg/mL High <1800 [facility] No Panel InformationOrdered By: Genia Scott on 11-02-2024 ART [facility] R Radial [facility] Not entered [facility] BiPAP [facility] 12 [facility] 6 [facility] Ovalocyte detectionOrdered B y: Khai Bose on 11-02-2024 Ovalocytes LM Ql (Bld) RAR [facility] Phosphoruson 11-02-2024 Phosphate [Mass/Vol] 2.0 mg/dL Low 2.7-4.5 [facility] Comment on above: Performed By: #### L 501.2300 ####[facility] [address] [place], [place], [address] Platelet morphologyOrdered B y: Khai Bose on 11-02-2024 Platelet morphology finding Nom (Bld) GIANT [facility] Review by pathologistOrdered By: Khai Bose on 11-02-2024 Pathologist review [place] (Unsp spec) [Interp] May foll [facility] Smudge cell detectionOrdered By: Khai Bose on 11-02-2024 Smudge cells LM Ql (Bld) 2+ [facility] Total carbon dioxide measure mentOrdered By: Genia Scott on 11-02-2024 CO2 [Moles/Vol] 25 mmol/L [facility] Venous Duplex US - Kelley Extre mon 11-02-2024 Venous Duplex US - Kelley Extrem Normal [facility] Venous duplex ultrasound rep ortOrdered By: Ryder Leung on 11-02-2024 US Vein [facility] Other Phone: Automated lymphocyte count a s percentage of total leukocytesOrdered By: Khai Bose on 11-01-2024 Lymphocytes/100 WBC Auto (Unsp spec) 9.7 % Low 19-41 [facility] Basic Metabolic Profile (BMP )on 11-01-2024 BUN/CRE 18.4 RATIO Normal 10-20 [facility] Comment on above: Performed By: #### L 100.0100, L500.2500 ####[facility] [address] [place], [address] Calcium [Mass/Vol] 8.9 mg/dL Normal 7.6-11.0 [facility] Comment on above: Performed By: #### L 100.0100, L500.2500 ####[facility] [address] [place], [address] Chloride [Moles/Vol] 108 mmol/L Normal 98-108 [facility] Comment on above: Performed By: #### L 100.0100, L500.2500 ####[facility] [address] [place], [address] CO2 [Moles/Vol] 22.1 mmol/L Normal 21.0-32.0 [facility] Comment on above: Performed By: #### L 100.0100, L500.2500 ####[facility] [address] [place], [address] Creatinine [Mass/Vol] 1.06 mg/dL Normal 0.70-1.20 [facility] Comment on above: Performed By: #### L 100.0100, L500.2500 ####[facility] [address] [place], [address] ECRCL 58.87 ml/min Normal 50-250 [facility] Comment on above: Performed By: #### L 100.0100, L500.2500 ####[facility] [address] [place], [address] GAP 10 Normal 5-15 [facility] Comment on above: Performed By: #### L 100.0100, L500.2500 ####[facility] [address] [place], [address] GFR/1.73 sq M.predicted among non-blacks MDRD (S/P/Bld) [Vol rate/Area] 68 mL/min/{1.73_m2} Normal >60 [facility] Comment on above: Result Comment: mL/m in/1.73m2 CKD-EPI Creatinine Equation (2020) Performed By: #### L 100.0100, L500.2500 ####[facility] [address] [place], [address] Glucose [Mass/Vol] 122 mg/dL High 70-99 [facility] Comment on above: Performed By: #### L 100.0100, L500.2500 ####[facility] [address] [place], [address] Potassium [Moles/Vol] 3.7 mmol/L Normal 3.3-5.1 [facility] Comment on above: Performed By: #### L 100.0100, L500.2500 ####[facility] [address] [place], [address] Sodium [Moles/Vol] 140 mmol/L Normal 133-145 [facility] Comment on above: Performed By: #### L 100.0100, L500.2500 ####[facility] [address] [place], [address] Urea nitrogen [Mass/Vol] 20 mg/dL High 4-19 [facility] Comment on above: Performed By: #### L 100.0100, L500.2500 ####[facility] [address] [place], [address] Basophil percentageOrdered B y: Khai Bose on 11-01-2024 Basophils/100 WBC (Bld) 0.8 % 0-[address] [facility] Bedside Glucoseon 11-01-2024 FINGERSTICK GLU 102 mg/dL Normal 74-106 [facility] Comment on above: Result Comment: LILLIAN GEMENT OF PATIENT CARE PER NURSING PROTOCOL Performed By: #### L 501.080 ####[facility] [address] [place], [address] FINGERSTICK GLU 107 mg/dL High 74-106 [facility] Comment on above: Result Comment: LILLIAN GEMENT OF PATIENT CARE PER NURSING PROTOCOL Performed By: #### L 501.080 ####[facility] [address] [place], [address] FINGERSTICK GLU 115 mg/dL High 74-106 [facility] Comment on above: Result Comment: LILLIAN GEMENT OF PATIENT CARE PER NURSING PROTOCOL Performed By: #### L 501.080 ####[facility] [address] [place], [address] FINGERSTICK GLU 113 mg/dL High 74-106 [facility] Comment on above: Result Comment: LILLIAN GEMENT OF PATIENT CARE PER NURSING PROTOCOL Performed By: #### L 501.080 ####[facility] [address] [place], [address] Blood Gases by [facility] 025 RICHARD TEST Positive Normal [facility] Comment on above: Performed By: #### L 9000.0800 ####[facility] [address] [place], [address] Base excess Calc (Bld) [Moles/Vol] 5 mmol/L High -2 to +2 [facility] Comment on above: Performed By: #### L 9000.0800 ####[facility] [address] [place], [address] Blood Gas Type ART Normal [facility] Comment on above: Performed By: #### L 9000.0800 ####[facility] [address] [place], [address] CO2 [Moles/Vol] 30 mmol/L Normal [facility] Comment on above: Performed By: #### L 9000.0800 ####[facility] [address] [place], [address] FI02 2.0 Normal [facility] Comment on above: Performed By: #### L 9000.0800 ####[facility] [address] [place], [address] HCO3 (Bld) [Moles/Vol] 28.8 mmol/L High 22-[address] [facility] Comment on above: Performed By: #### L 9000.0800 ####[facility] [address] [place], [address] Mode Not entered Normal [facility] Comment on above: Performed By: #### L 9000.0800 ####[facility] [address] [place], [address] O2 Delivery Dev Cannula Normal [facility] Comment on above: Performed By: #### L 9000.0800 ####[facility] [address] [place], [address] pCO2 41.0 mmHg Normal 35-45 [facility] Comment on above: Performed By: #### L 9000.0800 ####[facility] [address] [place], [address] pH (Bld) 7.45 [pH] Normal 7.35-7.45 [facility] Comment on above: Performed By: #### L 9000.0800 ####[facility] [address] [place], [address] PO2 95 mmHG Normal 75-100 [facility] Comment on above: Performed By: #### L 9000.0800 ####[facility] [address] [place], [address] SITE L Radial Normal [facility] Comment on above: Performed By: #### L 9000.0800 ####[facility] [address] [place], [address] SO2 98 Normal 95-99 [facility] Comment on above: Performed By: #### L 9000.0800 ####[facility] [address] [place], [address] CBC W/Diff, Automatedon -02 21-2024 Absolute Lymph 1.12 X10 3/uL Normal 0.83-4.51 [facility] Comment on above: Performed By: #### L 100.0100, L500.2500 ####[facility] [address] [place], [address] Absolute Neut 8.9 X10 3/uL High 2.0-7.7 [facility] Comment on above: Performed By: #### L 100.0100, L500.2500 ####[facility] [address] [place], [address] Basophils/100 WBC (Bld) 0.8 % Normal 0-[address] [facility] Comment on above: Performed By: #### L 100.0100, L500.2500 ####[facility] [address] [place], [address] Eosinophils/100 WBC (Bld) 2.2 % Normal 0-5 [facility] Comment on above: Performed By: #### L 100.0100, L500.2500 ####[facility] [address] [place], [address] Erythrocyte distribution width (RBC) [Ratio] 15.7 % High 11.6-14.6 [facility] Comment on above: Performed By: #### L 100.0100, L500.2500 ####[facility] [address] [place], [address] Hematocrit (Bld) [Volume fraction] 37.9 % Low 40-54 [facility] Comment on above: Performed By: #### L 100.0100, L500.2500 ####[facility] [address] [place], [address] Hemoglobin (Bld) [Mass/Vol] 12.7 g/dL Low 13.0-16.5 [facility] Comment on above: Performed By: #### L 100.0100, L500.2500 ####[facility] [address] [place], [address] IG% 2.500 High 0.0-0.9 [facility] Comment on above: Result Comment: IG% - Immature Granulocytes (promyelocytes, myelocytes andmetamyelocytes) > 1% indicates that a LEFT SHIFT is Present. Performed By: #### L 100.0100, L500.2500 ####[facility] [address] [place], [address] Lymphocytes/100 WBC (Bld) 9.7 % Low 19-41 [facility] Comment on above: Performed By: #### L 100.0100, L500.2500 ####[facility] [address] [place], [address] MCH (RBC) [Entitic mass] 29.5 pg Normal 27.0-32.0 [facility] Comment on above: Performed By: #### L 100.0100, L500.2500 ####[facility] [address] [place], [address] MCHC (RBC) [Mass/Vol] 33.5 g/dL Normal 32-36 [facility] Comment on above: Performed By: #### L 100.0100, L500.2500 ####[facility] [address] [place], [address] MCV (RBC) [Entitic vol] 87.9 fL Normal 80-[address] [facility] Comment on above: Performed By: #### L 100.0100, L500.2500 ####[facility] [address] [place], [address] Monocytes/100 WBC (Bld) 7.7 % Normal 0-[address] [facility] Comment on above: Performed By: #### L 100.0100, L500.2500 ####[facility] [address] [place], [address] Neutrophils/100 WBC (Bld) 77.1 % High 47-70 [facility] Comment on above: Performed By: #### L 100.0100, L500.2500 ####[facility] [address] [place], [address] Nucleated RBC (Bld) [#/Vol] 0 10*3/uL Normal 0-5 [facility] Comment on above: Performed By: #### L 100.0100, L500.2500 ####[facility] [address] [place], [address] Platelet mean volume (Bld) [Entitic vol] 10.1 fL Normal 6.2-12.0 [facility] Comment on above: Performed By: #### L 100.0100, L500.2500 ####[facility] [address] [place], [address] Platelets (Bld) [#/Vol] 168 10*3/uL Normal 150-450 [facility] Comment on above: Performed By: #### L 100.0100, L500.2500 ####[facility] [address] [place], [address] RBC (Bld) [#/Vol] 4.31 10*6/uL Low 4.6-6.2 [facility] Comment on above: Performed By: #### L 100.0100, L500.2500 ####[facility] [address] [place], [address] RDW SD 50.8 fl High 35.1-43.9 [facility] Comment on above: Performed By: #### L 100.0100, L500.2500 ####[facility] [address] [place], [address] WBC (Bld) [#/Vol] 11.6 10*3/uL High 4.4-11.0 [facility] Comment on above: Performed By: #### L 100.0100, L500.2500 ####[facility] [address] [place], [address] Culture, Blood (WB)on 2024 CUB Blood cultures x2, from two different sites No growth in 5 days. Normal [facility] Comment on above: Performed By: #### M 200.1000 ####[facility] [address] [place], [address] Eosinophil percentageOrdered By: Khai Bose on 11-01-2024 Eosinophils/100 WBC (Bld) 2.2 % 0-5 [facility] Immature granulocytes/100 WB C Auto (Bld)Ordered By: Khai Bose on 11-01-2024 Immature granulocytes/100 WBC (Bld) 2.500 % High 0.0-0.9 [facility] Monocyte percentageOrdered B y: Khai Bose on 11-01-2024 Monocytes/100 WBC (Bld) 7.7 % 0-[address] [facility] Bedside Glucoseon 10-31-2024 FINGERSTICK GLU 118 mg/dL High 74-106 [facility] Comment on above: Result Comment: LILLIAN GEMENT OF PATIENT CARE PER NURSING PROTOCOL Performed By: #### L 501.080 ####[facility] [address] [place], [address] FINGERSTICK GLU 126 mg/dL High 74-106 [facility] Comment on above: Result Comment: LILLIAN GEMENT OF PATIENT CARE PER NURSING PROTOCOL Performed By: #### L 501.080 ####[facility] [address] [place], [address] FINGERSTICK GLU 128 mg/dL High 74-106 [facility] Comment on above: Result Comment: LILLIAN GEMENT OF PATIENT CARE PER NURSING PROTOCOL Performed By: #### L 501.080 ####[facility] [address] [place], [address] FINGERSTICK GLU 144 mg/dL High 74-106 [facility] Comment on above: Result Comment: LILLIAN GEMENT OF PATIENT CARE PER NURSING PROTOCOL Performed By: #### L 501.080 ####[facility] [address] [place], [address] FINGERSTICK GLU 107 mg/dL High 74-106 [facility] Comment on above: Result Comment: LILLIAN GEMENT OF PATIENT CARE PER NURSING PROTOCOL Performed By: #### L 501.080 ####[facility] [address] [place], [address] Body Fluid Culton 10-31-2024 BFC Normal [facility] Comment on above: Performed By: #### M 100.4001, M100.2000, M100.2900 ####[facility] [address] [place], [address] CBC W/Diff, Automatedon 10-22 Absolute Lymph 0.73 X10 3/uL Low 0.83-4.51 [facility] Comment on above: Performed By: #### L 500.4050, L100.0100 ####[facility] [address] [place], [address] Absolute Neut 9.5 X10 3/uL High 2.0-7.7 [facility] Comment on above: Performed By: #### L 500.4050, L100.0100 ####[facility] [address] [place], [address] Basophils/100 WBC (Bld) 0.7 % Normal 0-[address] [facility] Comment on above: Performed By: #### L 500.4050, L100.0100 ####[facility] [address] [place], [address] Eosinophils/100 WBC (Bld) 2.0 % Normal 0-5 [facility] Comment on above: Performed By: #### L 500.4050, L100.0100 ####[facility] [address] [place], [address] Erythrocyte distribution width (RBC) [Ratio] 15.7 % High 11.6-14.6 [facility] Comment on above: Performed By: #### L 500.4050, L100.0100 ####[facility] [address] [place], [address] Hematocrit (Bld) [Volume fraction] 36.0 % Low 40-54 [facility] Comment on above: Performed By: #### L 500.4050, L100.0100 ####[facility] [address] [place], [address] Hemoglobin (Bld) [Mass/Vol] 11.9 g/dL Low 13.0-16.5 [facility] Comment on above: Performed By: #### L 500.4050, L100.0100 ####[facility] [address] [place], [address] IG% 1.200 High 0.0-0.9 [facility] Comment on above: Result Comment: IG% - Immature Granulocytes (promyelocytes, myelocytes andmetamyelocytes) > 1% indicates that a LEFT SHIFT is Present. Performed By: #### L 500.4050, L100.0100 ####[facility] [address] [place], [address] Lymphocytes/100 WBC (Bld) 6.4 % Low 19-41 [facility] Comment on above: Performed By: #### L 500.4050, L100.0100 ####[facility] [address] [place], [address] MCH (RBC) [Entitic mass] 29.2 pg Normal 27.0-32.0 [facility] Comment on above: Performed By: #### L 500.4050, L100.0100 ####[facility] [address] [place], [address] MCHC (RBC) [Mass/Vol] 33.1 g/dL Normal 32-36 [facility] Comment on above: Performed By: #### L 500.4050, L100.0100 ####[facility] [address] [place], [address] MCV (RBC) [Entitic vol] 88.5 fL Normal 80-94 [facility] Comment on above: Performed By: #### L 500.4050, L100.0100 ####[facility] [address] [place], [address] Monocytes/100 WBC (Bld) 6.2 % Normal 0-10 [facility] Comment on above: Performed By: #### L 500.4050, L100.0100 ####[facility] [address] [place], [address] Neutrophils/100 WBC (Bld) 83.5 % High 47-70 [facility] Comment on above: Performed By: #### L 500.4050, L100.0100 ####[facility] [address] [place], [address] Nucleated RBC (Bld) [#/Vol] 0 10*3/uL Normal 0-5 [facility] Comment on above: Performed By: #### L 500.4050, L100.0100 ####[facility] [address] [place], [address] Platelet mean volume (Bld) [Entitic vol] 10.1 fL Normal 6.2-12.0 [facility] Comment on above: Performed By: #### L 500.4050, L100.0100 ####[facility] [address] [place], [address] Platelets (Bld) [#/Vol] 179 10*3/uL Normal 150-450 [facility] Comment on above: Performed By: #### L 500.4050, L100.0100 ####[facility] [address] [place], [address] RBC (Bld) [#/Vol] 4.07 10*6/uL Low 4.6-6.2 [facility] Comment on above: Performed By: #### L 500.4050, L100.0100 ####[facility] [address] [place], [address] RDW SD 51.0 fl High 35.1-43.9 [facility] Comment on above: Performed By: #### L 500.4050, L100.0100 ####[facility] [address] [place], [address] WBC (Bld) [#/Vol] 11.4 10*3/uL High 4.4-11.0 [facility] Comment on above: Performed By: #### L 500.4050, L100.0100 ####[facility] [address] [place], [address] Comprehensive Metabolic Prof ilon 10-31-2024 Albumin [Mass/Vol] 2.7 g/dL Low 3.4-4.8 [facility] Comment on above: Performed By: #### L 500.4050, L100.0100 ####[facility] [address] [place], [address] Albumin/Globulin [Mass ratio] 1.0 {ratio} Normal 0.9-2.4 [facility] Comment on above: Performed By: #### L 500.4050, L100.0100 ####[facility] [address] [place], [address] ALK PHOS 203 U/L High 40-129 [facility] Comment on above: Performed By: #### L 500.4050, L100.0100 ####[facility] [address] [place], [address] ALT [Catalytic activity/Vol] 174 U/L High <=46 [facility] Comment on above: Performed By: #### L 500.4050, L100.0100 ####[facility] [address] [place], [address] AST [Catalytic activity/Vol] 310 U/L High <=37 [facility] Comment on above: Performed By: #### L 500.4050, L100.0100 ####[facility] [address] [place], [address] Bilirubin [Mass/Vol] 1.31 mg/dL High 0.00-1.30 [facility] Comment on above: Performed By: #### L 500.4050, L100.0100 ####[facility] [address] [place], [address] BUN/CRE 20.2 RATIO High 10-20 [facility] Comment on above: Performed By: #### L 500.4050, L100.0100 ####[facility] [address] [place], [address] Calcium [Mass/Vol] 9.1 mg/dL Normal 7.6-11.0 [facility] Comment on above: Performed By: #### L 500.4050, L100.0100 ####[facility] [address] [place], [address] Chloride [Moles/Vol] 111 mmol/L High 98-108 [facility] Comment on above: Performed By: #### L 500.4050, L100.0100 ####[facility] [address] [place], [address] CO2 [Moles/Vol] 23.3 mmol/L Normal 21.0-32.0 [facility] Comment on above: Performed By: #### L 500.4050, L100.0100 ####[facility] [address] [place], [address] Creatinine [Mass/Vol] 1.30 mg/dL High 0.70-1.20 [facility] Comment on above: Performed By: #### L 500.4050, L100.0100 ####[facility] [address] [place], [address] ECRCL 47.67 ml/min Low 50-250 [facility] Comment on above: Performed By: #### L 500.4050, L100.0100 ####[facility] [address] [place], [address] GAP 8 Normal 5-15 [facility] Comment on above: Performed By: #### L 500.4050, L100.0100 ####[facility] [address] [place], [address] GFR/1.73 sq M.predicted among non-blacks MDRD (S/P/Bld) [Vol rate/Area] 53 mL/min/{1.73_m2} Low >60 [facility] Comment on above: Result Comment: mL/m in/1.73m2 CKD-EPI Creatinine Equation (2020) Performed By: #### L 500.4050, L100.0100 ####[facility] [address] [place], [address] Globulin (S) [Mass/Vol] 2.7 g/dL Normal 2.2-4.2 [facility] Comment on above: Performed By: #### L 500.4050, L100.0100 ####[facility] [address] [place], [address] Glucose [Mass/Vol] 159 mg/dL High 70-99 [facility] Comment on above: Performed By: #### L 500.4050, L100.0100 ####[facility] [address] [place], [address] Potassium [Moles/Vol] 3.6 mmol/L Normal 3.3-5.1 [facility] Comment on above: Performed By: #### L 500.4050, L100.0100 ####[facility] [address] [place], [address] Sodium [Moles/Vol] 142 mmol/L Normal 133-145 [facility] Comment on above: Performed By: #### L 500.4050, L100.0100 ####[facility] [address] [place], [address] T PROT 5.4 g/dL Low 5.9-8.4 [facility] Comment on above: Performed By: #### L 500.4050, L100.0100 ####[facility] [address] [place], [address] Urea nitrogen [Mass/Vol] 26 mg/dL High 4-19 [facility] Comment on above: Performed By: #### L 500.4050, L100.0100 ####[facility] [address] [place], [address] Consultation - Cardiologyon 10-31-2024 Consultation - Cardiology Normal [facility] Consultation - Infectious Dx on 10-31-2024 Consultation - Infectious Dx Normal [facility] Bedside Glucoseon 10-30-2024 FINGERSTICK GLU 109 mg/dL High 74-106 [facility] Comment on above: Result Comment: LILLIAN GEMENT OF PATIENT CARE PER NURSING PROTOCOL Performed By: #### L 501.080 ####[facility] [address] [place], [address] FINGERSTICK GLU 94 mg/dL Normal 74-106 [facility] Comment on above: Result Comment: Dr Mack rosa FollowedMANAGEMENT OF PATIENT CARE PER NURSING PROTOCOL Performed By: #### L 501.080 ####[facility] [address] [place], [address] FINGERSTICK GLU 92 mg/dL Normal 74-106 [facility] Comment on above: Result Comment: Dr Mack rosa FollowedMANAGEMENT OF PATIENT CARE PER NURSING PROTOCOL Performed By: #### L 501.080 ####[facility] [address] [place], [address] FINGERSTICK GLU 108 mg/dL High 74-106 [facility] Comment on above: Result Comment: LILLIAN GEMENT OF PATIENT CARE PER NURSING PROTOCOL Performed By: #### L 501.080 ####[facility] [address] [place], [address] FINGERSTICK GLU 122 mg/dL High 74-106 [facility] Comment on above: Result Comment: LILLIAN GEMENT OF PATIENT CARE PER NURSING PROTOCOL Performed By: #### L 501.080 ####[facility] [address] [place], [address] CBC W/Diff, Automatedon 09-0 9-2024 Absolute Lymph 0.66 X10 3/uL Low 0.83-4.51 [facility] Comment on above: Performed By: #### L 500.4050, L100.0100 ####[facility] [address] [place], [address] Absolute Neut 10.1 X10 3/uL High 2.0-7.7 [facility] Comment on above: Performed By: #### L 500.4050, L100.0100 ####[facility] [address] [place], [address] Basophils/100 WBC (Bld) 0.4 % Normal 0-[address] [facility] Comment on above: Performed By: #### L 500.4050, L100.0100 ####[facility] [address] [place], [address] Eosinophils/100 WBC (Bld) 1.1 % Normal 0-5 [facility] Comment on above: Performed By: #### L 500.4050, L100.0100 ####[facility] [address] [place], [address] Erythrocyte distribution width (RBC) [Ratio] 15.8 % High 11.6-14.6 [facility] Comment on above: Performed By: #### L 500.4050, L100.0100 ####[facility] [address] [place], [address] Hematocrit (Bld) [Volume fraction] 37.4 % Low 40-54 [facility] Comment on above: Performed By: #### L 500.4050, L100.0100 ####[facility] [address] [place], [address] Hemoglobin (Bld) [Mass/Vol] 12.4 g/dL Low 13.0-16.5 [facility] Comment on above: Performed By: #### L 500.4050, L100.0100 ####[facility] [address] [place], [address] IG% 1.100 High 0.0-0.9 [facility] Comment on above: Result Comment: IG% - Immature Granulocytes (promyelocytes, myelocytes andmetamyelocytes) > 1% indicates that a LEFT SHIFT is Present. Performed By: #### L 500.4050, L100.0100 ####[facility] [address] [place], [address] Lymphocytes/100 WBC (Bld) 5.6 % Low 19-41 [facility] Comment on above: Performed By: #### L 500.4050, L100.0100 ####[facility] [address] [place], [address] MCH (RBC) [Entitic mass] 29.6 pg Normal 27.0-32.0 [facility] Comment on above: Performed By: #### L 500.4050, L100.0100 ####[facility] [address] [place], [address] MCHC (RBC) [Mass/Vol] 33.2 g/dL Normal 32-36 [facility] Comment on above: Performed By: #### L 500.4050, L100.0100 ####[facility] [address] [place], [address] MCV (RBC) [Entitic vol] 89.3 fL Normal 80-94 [facility] Comment on above: Performed By: #### L 500.4050, L100.0100 ####[facility] [address] [place], [address] Monocytes/100 WBC (Bld) 6.4 % Normal 0-10 [facility] Comment on above: Performed By: #### L 500.4050, L100.0100 ####[facility] [address] [place], [address] Neutrophils/100 WBC (Bld) 85.4 % High 47-70 [facility] Comment on above: Performed By: #### L 500.4050, L100.0100 ####[facility] [address] [place], [address] Nucleated RBC (Bld) [#/Vol] 0 10*3/uL Normal 0-5 [facility] Comment on above: Performed By: #### L 500.4050, L100.0100 ####[facility] [address] [place], [address] Platelet mean volume (Bld) [Entitic vol] 10.0 fL Normal 6.2-12.0 [facility] Comment on above: Performed By: #### L 500.4050, L100.0100 ####[facility] [address] [place], [address] Platelets (Bld) [#/Vol] 166 10*3/uL Normal 150-450 [facility] Comment on above: Performed By: #### L 500.4050, L100.0100 ####[facility] [address] [place], [address] RBC (Bld) [#/Vol] 4.19 10*6/uL Low 4.6-6.2 [facility] Comment on above: Performed By: #### L 500.4050, L100.0100 ####[facility] [address] [place], [address] RDW SD 51.3 fl High 35.1-43.9 [facility] Comment on above: Performed By: #### L 500.4050, L100.0100 ####[facility] [address] [place], [address] WBC (Bld) [#/Vol] 11.8 10*3/uL High 4.4-11.0 [facility] Comment on above: Performed By: #### L 500.4050, L100.0100 ####[facility] [address] [place], [address] Comprehensive Metabolic Prof ilon 10-30-2024 Albumin [Mass/Vol] 2.9 g/dL Low 3.4-4.8 [facility] Comment on above: Performed By: #### L 500.4050, L100.0100 ####[facility] [address] [place], [address] Albumin/Globulin [Mass ratio] 1.1 {ratio} Normal 0.9-2.4 [facility] Comment on above: Performed By: #### L 500.4050, L100.0100 ####[facility] [address] [place], [address] ALK PHOS 136 U/L High 40-129 [facility] Comment on above: Performed By: #### L 500.4050, L100.0100 ####[facility] [address] [place], [address] ALT [Catalytic activity/Vol] 81 U/L High <=46 [facility] Comment on above: Performed By: #### L 500.4050, L100.0100 ####[facility] [address] [place], [address] AST [Catalytic activity/Vol] 166 U/L High <=37 [facility] Comment on above: Performed By: #### L 500.4050, L100.0100 ####[facility] [address] [place], [address] Bilirubin [Mass/Vol] 1.12 mg/dL Normal 0.00-1.30 [facility] Comment on above: Performed By: #### L 500.4050, L100.0100 ####[facility] [address] [place], [address] BUN/CRE 20.1 RATIO High 10-20 [facility] Comment on above: Performed By: #### L 500.4050, L100.0100 ####[facility] [address] [place], [address] Calcium [Mass/Vol] 9.2 mg/dL Normal 7.6-11.0 [facility] Comment on above: Performed By: #### L 500.4050, L100.0100 ####[facility] [address] [place], [address] Chloride [Moles/Vol] 111 mmol/L High 98-108 [facility] Comment on above: Performed By: #### L 500.4050, L100.0100 ####[facility] [address] [place], [address] CO2 [Moles/Vol] 22.2 mmol/L Normal 21.0-32.0 [facility] Comment on above: Performed By: #### L 500.4050, L100.0100 ####[facility] [address] [place], [address] Creatinine [Mass/Vol] 1.31 mg/dL High 0.70-1.20 [facility] Comment on above: Performed By: #### L 500.4050, L100.0100 ####[facility] [address] [place], [address] ECRCL 47.66 ml/min Low 50-250 [facility] Comment on above: Performed By: #### L 500.4050, L100.0100 ####[facility] [address] [place], [address] GAP 10 Normal 5-15 [facility] Comment on above: Performed By: #### L 500.4050, L100.0100 ####[facility] [address] [place], [address] GFR/1.73 sq M.predicted among non-blacks MDRD (S/P/Bld) [Vol rate/Area] 52 mL/min/{1.73_m2} Low >60 [facility] Comment on above: Result Comment: mL/m in/1.73m2 CKD-EPI Creatinine Equation (2020) Performed By: #### L 500.4050, L100.0100 ####[facility] [address] [place], [address] Globulin (S) [Mass/Vol] 2.6 g/dL Normal 2.2-4.2 [facility] Comment on above: Performed By: #### L 500.4050, L100.0100 ####[facility] [address] [place], [address] Glucose [Mass/Vol] 126 mg/dL High 70-99 [facility] Comment on above: Performed By: #### L 500.4050, L100.0100 ####[facility] [address] [place], [address] Potassium [Moles/Vol] 3.9 mmol/L Normal 3.3-5.1 [facility] Comment on above: Performed By: #### L 500.4050, L100.0100 ####[facility] [address] [place], [address] Sodium [Moles/Vol] 142 mmol/L Normal 133-145 [facility] Comment on above: Performed By: #### L 500.4050, L100.0100 ####[facility] [address] [place], [address] T PROT 5.5 g/dL Low 5.9-8.4 [facility] Comment on above: Performed By: #### L 500.4050, L100.0100 ####[facility] [address] [place], [address] Urea nitrogen [Mass/Vol] 26 mg/dL High 4-19 [facility] Comment on above: Performed By: #### L 500.4050, L100.0100 ####[facility] [address] [place], [address] MR/CONBrianna 10-30-2024 MR/CONALONDRA.MARIEL Normal [facility] Modified Barium Swallow Stud yon 10-30-2024 Modified Barium Swallow Study Normal [facility] Activated partial thrombopla stin time (aPTT) in platelet poor plasma by coagulation aOrdered By: Khai Bose on 10-29-2024 aPTT Coag (PPP) [Time] 48.5 s High 24.1-36.2 [facility] Anaerobic cultureOrdered By: Khai Bose on 10-29-2024 Bacteria identified Anaer cx Nom (Unsp spec) Anaerobic cocci Abnormal [facility] Bacteria identified Anaer cx Nom (Unsp spec) Clostridium perfringens Abnormal [facility] Basic Metabolic Profile (BMP )on 10-29-2024 BUN/CRE 20.4 RATIO High 10-20 [facility] Comment on above: Performed By: #### L 100.0100, L501.9985, L500.2500 ####[facility] [address] [place], [address] Calcium [Mass/Vol] 9.0 mg/dL Normal 7.6-11.0 [facility] Comment on above: Performed By: #### L 100.0100, L501.9985, L500.2500 ####[facility] [address] [place], [address] Chloride [Moles/Vol] 110 mmol/L High 98-108 [facility] Comment on above: Performed By: #### L 100.0100, L501.9985, L500.2500 ####[facility] [address] [place], [address] CO2 [Moles/Vol] 20.9 mmol/L Low 21.0-32.0 [facility] Comment on above: Performed By: #### L 100.0100, L501.9985, L500.2500 ####[facility] [address] [place], [address] Creatinine [Mass/Vol] 1.46 mg/dL High 0.70-1.20 [facility] Comment on above: Performed By: #### L 100.0100, L501.9985, L500.2500 ####[facility] [address] [place], [address] ECRCL 42.19 ml/min Low 50-250 [facility] Comment on above: Performed By: #### L 100.0100, L501.9985, L500.2500 ####[facility] [address] [place], [address] GAP 10 Normal 5-15 [facility] Comment on above: Performed By: #### L 100.0100, L501.9985, L500.2500 ####[facility] [address] [place], [address] GFR/1.73 sq M.predicted among non-blacks MDRD (S/P/Bld) [Vol rate/Area] 46 mL/min/{1.73_m2} Low >60 [facility] Comment on above: Result Comment: mL/m in/1.73m2 CKD-EPI Creatinine Equation (2020) Performed By: #### L 100.0100, L501.9985, L500.2500 ####[facility] [address] [place], [address] Glucose [Mass/Vol] 173 mg/dL High 70-99 [facility] Comment on above: Performed By: #### L 100.0100, L501.9985, L500.2500 ####[facility] [address] [place], [address] Potassium [Moles/Vol] 4.2 mmol/L Normal 3.3-5.1 [facility] Comment on above: Performed By: #### L 100.0100, L501.9985, L500.2500 ####[facility] [address] [place], [address] Sodium [Moles/Vol] 140 mmol/L Normal 133-145 [facility] Comment on above: Performed By: #### L 100.0100, L501.9985, L500.2500 ####[facility] [address] [place], [address] Urea nitrogen [Mass/Vol] 30 mg/dL High 4-19 [facility] Comment on above: Performed By: #### L 100.0100, L501.9985, L500.2500 ####[facility] [address] [place], [address] Bedside Glucoseon 10-29-2024 FINGERSTICK GLU 114 mg/dL High 74-106 [facility] Comment on above: Result Comment: LILLIAN GEMENT OF PATIENT CARE PER NURSING PROTOCOL Performed By: #### L 501.080 ####[facility] [address] [place], [address] FINGERSTICK GLU 106 mg/dL Normal 74-106 [facility] Comment on above: Result Comment: LILLIAN GEMENT OF PATIENT CARE PER NURSING PROTOCOL Performed By: #### L 501.080 ####[facility] [address] [place], [address] FINGERSTICK GLU 134 mg/dL High 74-106 [facility] Comment on above: Result Comment: LILLIAN GEMENT OF PATIENT CARE PER NURSING PROTOCOL Performed By: #### L 501.080 ####[facility] [address] [place], [address] Biopsy/Inj or Needle Placeme nton 10-29-2024 Biopsy/Inj or Needle Placement Normal [facility] Body Fluid Cell Count+Diffon 10-29-2024 PATH COMM/BF May follow Normal [facility] Comment on above: Order Comment: Comme nts: GB fluid Result Comment: Unab le to perform due to the type of fluid. [facility] was[facility] and they do not perform anymore due to the bile acidbreaking down the cells. Performed By: #### L 200.0200 ####[facility] [address] [place], [address] APPEAR/BF Normal [facility] Comment on above: Order Comment: Comme nts: GB fluid Result Comment: Unab le to perform due to the type of fluid. [facility] wascalled and they do not perform anymore due to the bile acidbreaking down the cells. Performed By: #### L 200.0200 ####[facility] [address] [place], [address] BFM 2ND SPEC Normal [facility] Comment on above: Order Comment: Comme nts: GB fluid Result Comment: Unab le to perform due to the type of fluid. [facility] wascalled and they do not perform anymore due to the bile acidbreaking down the cells. Performed By: #### L 200.0200 ####[facility] [address] [place], [address] BFTC# [facility] Comment on above: Order Comment: Comme nts: GB fluid Result Comment: Unab le to perform due to the type of fluid. [facility] wascalled and they do not perform anymore due to the bile acidbreaking down the cells. Performed By: #### L 200.0200 ####[facility] [address] [place], [address] BODY FLUID QC [facility] Comment on above: Order Comment: Comme nts: GB fluid Result Comment: Unab le to perform due to the type of fluid. [facility] wascalled and they do not perform anymore due to the bile acidbreaking down the cells. Performed By: #### L 200.0200 ####[facility] [address] [place], [address] COLOR/BF [facility] Comment on above: Order Comment: Comme nts: GB fluid Result Comment: Unab le to perform due to the type of fluid. [facility] wascalled and they do not perform anymore due to the bile acidbreaking down the cells. Performed By: #### L 200.0200 ####[facility] [address] [place], [address] qBKG ANALYZ OK? Normal W/IN LIMITS [facility] Comment on above: Order Comment: Comme nts: GB fluid Result Comment: Unab le to perform due to the type of fluid. [facility] wascalled and they do not perform anymore due to the bile acidbreaking down the cells. Performed By: #### L 200.0200 ####[facility] [address] [place], [address] RBC/BF Normal [facility] Comment on above: Order Comment: Comme nts: GB fluid Result Comment: Unab le to perform due to the type of fluid. [facility] wascalled and they do not perform anymore due to the bile acidbreaking down the cells. Performed By: #### L 200.0200 ####[facility] [address] [place], [address] SOURCE/BF Normal [facility] Comment on above: Order Comment: Comme nts: GB fluid Result Comment: Unab le to perform due to the type of fluid. [facility] wascalled and they do not perform anymore due to the bile acidbreaking down the cells. Performed By: #### L 200.0200 ####[facility] [address] [place], [address] WBC/BF Normal [facility] Comment on above: Order Comment: Comme nts: GB fluid Result Comment: Unab le to perform due to the type of fluid. [facility] wascalled and they do not perform anymore due to the bile acidbreaking down the cells. Performed By: #### L 200.0200 ####[facility] [address] [place], [address] CBC W/Diff, Automatedon 09-0 ACANTHOCYTE 1+ Normal [facility] Comment on above: Performed By: #### L 100.0100, L501.9985, L500.2500 ####[facility] [address] [place], [address] Anisocytosis Ql (Bld) 1+ Normal [facility] Comment on above: Performed By: #### L 100.0100, L501.9985, L500.2500 ####[facility] [address] [place], [address] CRENATED RBC 3+ Normal [facility] Comment on above: Performed By: #### L 100.0100, L501.9985, L500.2500 ####[facility] [address] [place], [address] POLYCHROMASIA 1+ Normal [facility] Comment on above: Performed By: #### L 100.0100, L501.9985, L500.2500 ####[facility] [address] [place], [address] DOHLE BODIES 1+ Normal [facility] Comment on above: Performed By: #### L 100.0100, L501.9985, L500.2500 ####[facility] [address] [place], [address] PLT EST ADEQUATE Normal ADEQ [facility] Comment on above: Performed By: #### L 100.0100, L501.9985, L500.2500 ####[facility] [address] [place], [address] TOXIC GRAN 1+ Normal [facility] Comment on above: Performed By: #### L 100.0100, L501.9985, L500.2500 ####[facility] [address] [place], [address] Crenated erythrocyte detecti on by light microscopyOrdered By: Ko Wiggins on 10-29-2024 Beau cells LM Ql (Bld) 3+ [facility] Dohle bodies detectionOrdere d By: Ko Wiggins on 10-29-2024 Dohle body LM Ql (Bld) 1+ [facility] Electrocardiogram reportOrde red By: Cece Bella on 10-29-2024 EKG study [facility] Work Phone: [phone] Electrocardiogram reportOrde red By: Sue Anderson on 10-29-2024 EKG study [facility] Work Phone: [phone] Gram Stainon 10-29-2024 GS GB fluid, cholecystostomy tube Gram Stain 2+ Gram variable semaj 1+ Gram positive cocci 2+ White Blood Cells Normal [facility] Comment on above: Performed By: #### M 100.4001, M100.2000, M100.2900 ####[facility] [address] [place], [place], [id number] Gram stainOrdered By: Rupali Bose on 10-29-2024 Microscopic observation Gram stain Nom (Unsp spec) [facility] Hemoglobin A1con 10-29-2024 HbA1c (Bld) [Mass fraction] 6.3 % High <=5.6 [facility] Comment on above: Result Comment: Norm al < 5.7 % Prediabetic 5.7 - 6.4 % Diabetic >or= 6.5 % Please note range changes. Performed By: #### L 100.0100, L501.9985, L500.2500 ####[facility] [address] [place], [place], [address] Hemoglobin A1c percentageOrd ered By: Ko Wiggins on 10-29-2024 HbA1c (Bld) [Mass fraction] 6.3 % High <5.7 [facility] No Panel InformationOrdered By: Ko Wiggins on 10-29-2024 1+ [facility] Partial Thromboplast Timeon 10-29-2024 aPTT Coag (Bld) [Time] 48.5 s High 24.1-36.2 [facility] Comment on above: Performed By: #### L 300.4310, L300.3900 ####[facility] [address] [place], [address] Prothrombin Time w/INRon INR Coag (PPP) [Relative time] 1.9 {INR} Normal [facility] Comment on above: Performed By: #### L 300.4310, L300.3900 ####[facility] [address] [place], [address] PT Coag (PPP) [Time] 21.7 s High 11.7-14.9 [facility] Comment on above: Performed By: #### L 300.4310, L300.3900 ####[facility] [address] [place], [address] INR Normal [facility] Comment on above: Result Comment: DUPL ICATE ORDER Performed By: #### L 300.3900 ####[facility] [address] [place], [address] PROTIME Normal 11.7-14.9 [facility] Comment on above: Result Comment: DUPL ICATE ORDER Performed By: #### L 300.3900 ####[facility] [address] [place], [address] Prothrombin timeOrdered By: Khai Bose on 10-29-2024 PT Coag (PPP) [Time] 21.7 s High 11.7-14.9 [facility] Toxic leukocyte granulation detectionOrdered By: Ko Wiggins on 10-29-2024 Toxic granules LM Ql (Bld) 1+ [facility] 12 Lead EKGon 10-28-2024 12 Lead EKG Normal [facility] Abd Inc Decub and/or Erecton 10-28-2024 Abd Inc Decub and/or Erect Normal [facility] Bedside Glucoseon 10-28-2024 FINGERSTICK GLU 148 mg/dL High 74-106 [facility] Comment on above: Result Comment: LILLIAN KUHN OF PATIENT CARE PER NURSING PROTOCOL Performed By: #### L 501.080 ####[facility] [address] [place], [address] FINGERSTICK GLU 124 mg/dL High 74-106 [facility] Comment on above: Result Comment: LILLIAN GEMENT OF PATIENT CARE PER NURSING PROTOCOL Performed By: #### L 501.080 ####[facility] [address] [place], [address] FINGERSTICK GLU 127 mg/dL High 74-106 [facility] Comment on above: Result Comment: LILLIAN GEMENT OF PATIENT CARE PER NURSING PROTOCOL Performed By: #### L 501.080 ####[facility] [address] [place], [address] FINGERSTICK GLU 188 mg/dL High 74-106 [facility] Comment on above: Result Comment: LILLIAN GEMENT OF PATIENT CARE PER NURSING PROTOCOL Performed By: #### L 501.080 ####[facility] [address] [place], [address] Blood Gases by [facility] 025 RICHARD TEST Positive Normal [facility] Comment on above: Performed By: #### L 9000.0800 ####[facility] [address] [place], [address] Base excess Calc (Bld) [Moles/Vol] 4 mmol/L High -2 to +2 [facility] Comment on above: Performed By: #### L 9000.0800 ####[facility] [address] [place], [address] Blood Gas Type ART Normal [facility] Comment on above: Performed By: #### L 9000.0800 ####[facility] [address] [place], [address] CO2 [Moles/Vol] 30 mmol/L Normal [facility] Comment on above: Performed By: #### L 9000.0800 ####[facility] [address] [place], [address] FI02 2.0 Normal [facility] Comment on above: Performed By: #### L 8999.08 ####[facility] [address] [place], [address] HCO3 (Bld) [Moles/Vol] 28.7 mmol/L High 22-[address] [facility] Comment on above: Performed By: #### L 8999.08 ####[facility] [address] [place], [address] Mode Not entered Normal [facility] Comment on above: Performed By: #### L 8999.0800 ####[facility] [address] [place], [address] O2 Delivery Dev CPAP Normal [facility] Comment on above: Performed By: #### L 8999.0800 ####[facility] [address] [place], [address] pCO2 43.3 mmHg Normal 35-45 [facility] Comment on above: Performed By: #### L 8999.08 ####[facility] [address] [place], [address] pH (Bld) 7.43 [pH] Normal 7.35-7.45 [facility] Comment on above: Performed By: #### L 8999.08 ####[facility] [address] [place], [address] PO2 70 mmHG Low 75-100 [facility] Comment on above: Performed By: #### L 8999.08 ####[facility] [address] [place], [address] SITE L Radial Normal [facility] Comment on above: Performed By: #### L 8999.0800 ####[facility] [address] [place], [address] SO2 94 Low 95-99 [facility] Comment on above: Performed By: #### L 9000.0800 ####[facility] [address] [place], [address] CBC W/Diff, Automatedon 09-0 SMEAR COMMENT SCANNED Normal [facility] Comment on above: Performed By: #### L 100.0100 ####[facility] [address] [place], [address] CXR for Line Placementon CXR for Line Placement Normal [facility] CXR for Line Placement Normal [facility] Comprehensive Metabolic Prof ilon 10-28-2024 Albumin [Mass/Vol] 3.5 g/dL Normal 3.4-4.8 [facility] Comment on above: Performed By: #### L 501.5200, L501.9520, L500.4050, L506.0400 ####[facility] [address] [place], [address] Albumin/Globulin [Mass ratio] 1.5 {ratio} Normal 0.9-2.4 [facility] Comment on above: Performed By: #### L 501.5200, L501.9520, L500.4050, L506.0400 ####[facility] [address] [place], [address] ALK PHOS 64 U/L Normal 40-129 [facility] Comment on above: Performed By: #### L 501.5200, L501.9520, L500.4050, L506.0400 ####[facility] [address] [place], [address] ALT [Catalytic activity/Vol] 8 U/L Normal <=46 [facility] Comment on above: Performed By: #### L 501.5200, L501.9520, L500.4050, L506.0400 ####[facility] [address] [place], [address] AST [Catalytic activity/Vol] 20 U/L Normal <=37 [facility] Comment on above: Performed By: #### L 501.5200, L501.9520, L500.4050, L506.0400 ####[facility] [address] [place], [address] Bilirubin [Mass/Vol] 1.39 mg/dL High 0.00-1.30 [facility] Comment on above: Performed By: #### L 501.5200, L501.9520, L500.4050, L506.0400 ####[facility] [address] [place], [address] BUN/CRE 17.6 RATIO Normal 10-20 [facility] Comment on above: Performed By: #### L 501.5200, L501.9520, L500.4050, L506.0400 ####[facility] [address] [place], [address] Calcium [Mass/Vol] 8.5 mg/dL Normal 7.6-11.0 [facility] Comment on above: Performed By: #### L 501.5200, L501.9520, L500.4050, L506.0400 ####[facility] [address] [place], [address] Chloride [Moles/Vol] 108 mmol/L Normal 98-108 [facility] Comment on above: Performed By: #### L 501.5200, L501.9520, L500.4050, L506.0400 ####[facility] [address] [place], [address] CO2 [Moles/Vol] 18.1 mmol/L Low 21.0-32.0 [facility] Comment on above: Performed By: #### L 501.5200, L501.9520, L500.4050, L506.0400 ####[facility] [address] [place], [address] Creatinine [Mass/Vol] 1.63 mg/dL High 0.70-1.20 [facility] Comment on above: Performed By: #### L 501.5200, L501.9520, L500.4050, L506.0400 ####[facility] [address] [place], [address] ECRCL 34.38 ml/min Low 50-250 [facility] Comment on above: Performed By: #### L 501.5200, L501.9520, L500.4050, L506.0400 ####[facility] [address] [place], [address] GAP 13 Normal 5-15 [facility] Comment on above: Performed By: #### L 501.5200, L501.9520, L500.4050, L506.0400 ####[facility] [address] [place], [address] GFR/1.73 sq M.predicted among non-blacks MDRD (S/P/Bld) [Vol rate/Area] 40 mL/min/{1.73_m2} Low >60 [facility] Comment on above: Result Comment: mL/m in/1.73m2 CKD-EPI Creatinine Equation (2020) Performed By: #### L 501.5200, L501.9520, L500.4050, L506.0400 ####[facility] [address] [place], [address] Globulin (S) [Mass/Vol] 2.3 g/dL Normal 2.2-4.[address] [facility] Comment on above: Performed By: #### L 501.5200, L501.9520, L500.4050, L506.0400 ####[facility] [address] [place], [address] Glucose [Mass/Vol] 205 mg/dL High 70-99 [facility] Comment on above: Performed By: #### L 501.5200, L501.9520, L500.4050, L506.0400 ####[facility] [address] [place], [address] Potassium [Moles/Vol] 4.1 mmol/L Normal 3.3-5.1 [facility] Comment on above: Performed By: #### L 501.5200, L501.9520, L500.4050, L506.0400 ####[facility] [address] [place], [address] Sodium [Moles/Vol] 139 mmol/L Normal 133-145 [facility] Comment on above: Performed By: #### L 501.5200, L501.9520, L500.4050, L506.0400 ####[facility] [address] [place], [address] T PROT 5.8 g/dL Low 5.9-8.4 [facility] Comment on above: Performed By: #### L 501.5200, L501.9520, L500.4050, L506.0400 ####[facility] [address] [place], [address] Urea nitrogen [Mass/Vol] 29 mg/dL High 4-19 [facility] Comment on above: Performed By: #### L 501.5200, L501.9520, L500.4050, L506.0400 ####[facility] [address] [place], [address] Magnesiumon 10-28-2024 Magnesium [Mass/Vol] 1.6 mg/dL Normal 1.5-2.2 [facility] Comment on above: Performed By: #### L 501.5200, L501.9520, L500.4050, L506.0400 ####[facility] [address] [place], [address] T4 Free Directon 10-28-2024 T4 FREE DIRECT 0.90 ng/dL Normal 0.76-1.46 [facility] Comment on above: Performed By: #### L 501.5200, L501.9520, L500.4050, L506.0400 ####[facility] [address] [place], [address] T4 freeOrdered By: Khai Vail hand on 10-28-2024 Free T4 [Mass/Vol] 0.90 ng/dL 0.76-1.46 [facility] TSH DL <= 0.005 mIU/L QnOrde red By: Khai Bose on 10-28-2024 TSH Qn 1.440 uIU/mL 0.300-4.200 [facility] Thyroid Stim Hormone (TSH)on 10-28-2024 TSH 1.440 uIU/mL Normal 0.300-4.200 [facility] Comment on above: Performed By: #### L 501.5200, L501.9520, L500.4050, L506.0400 ####[facility] [address] [place], [address] Trough vancomycin levelOrder ed By: Fernanda Triplett on 10-28-2024 Vancomycin trough [Mass/Vol] 12.2 ug/mL 5.0-15.0 [facility] Vancomycin, Trough Levelon 0 10-28-2024 VANCO, TROUGH 12.2 ug/mL Normal 5.0-15.0 [facility] Comment on above: Order Comment: Comme nts: Trough to be drawn 30 mins prior to scheduled [id number] Result Comment: Alirio mmended goal trough ranges [...] therapy recommended for serious lifethreatening infections include:- Kkweftjccr-Dlaxsjnrnori-Znwsshivq (Ventilator/Healtcare Associated)-SepsisPLEASE CONTACT PHARMACY SERVICES (#1747) FOR INTERPRETATIONOF RESULTS. Performed By: #### L 501.8820 ####[facility] [address] [place], [address] Bedside Glucoseon 10-27-2024 FINGERSTICK GLU 111 mg/dL High 74-106 [facility] Comment on above: Result Comment: LILLIAN GEMENT OF PATIENT CARE PER NURSING PROTOCOL Performed By: #### L 501.080 ####[facility] [address] [facility] [address] FINGERSTICK GLU 111 mg/dL High 74-106 [facility] Comment on above: Result Comment: LILLIAN GEMENT OF PATIENT CARE PER NURSING PROTOCOL Performed By: #### L 501.080 ####[facility] [address] [place], [address] FINGERSTICK GLU 94 mg/dL Normal 74-106 [facility] Comment on above: Result Comment: LILLIAN GEMENT OF PATIENT CARE PER NURSING PROTOCOL Performed By: #### L 501.080 ####[facility] [address] [facility] [address] FINGERSTICK GLU 95 mg/dL Normal 74-106 [facility] Comment on above: Result Comment: LILLIAN GEMENT OF PATIENT CARE PER NURSING PROTOCOL Performed By: #### L 501.080 ####[facility] [address] [place], [address] CBC W/Diff, Automatedon 09-0 SMEAR COMMENT SCANNED Normal [facility] Comment on above: Performed By: #### L 100.0100, L500.4050 ####[facility] [address] [place], [address] Comprehensive Metabolic Prof ilon 10-27-2024 Albumin [Mass/Vol] 3.3 g/dL Low 3.4-4.8 [facility] Comment on above: Performed By: #### L 100.0100, L500.4050 ####[facility] [address] [place], [address] Albumin/Globulin [Mass ratio] 1.2 {ratio} Normal 0.9-2.4 [facility] Comment on above: Performed By: #### L 100.0100, L500.4050 ####[facility] [address] [place], [address] ALK PHOS 77 U/L Normal 40-129 [facility] Comment on above: Performed By: #### L 100.0100, L500.4050 ####[facility] [address] [place], [address] ALT [Catalytic activity/Vol] 14 U/L Normal <=46 [facility] Comment on above: Performed By: #### L 100.0100, L500.4050 ####[facility] [address] [place], [address] AST [Catalytic activity/Vol] 27 U/L Normal <=37 [facility] Comment on above: Result Comment: Hemo lysis present, Results??could be affected.?? Performed By: #### L 100.0100, L500.4050 ####[facility] [address] [place], [address] Bilirubin [Mass/Vol] 1.36 mg/dL High 0.00-1.30 [facility] Comment on above: Performed By: #### L 100.0100, L500.4050 ####[facility] [address] [place], [address] BUN/CRE 16.8 RATIO Normal 10-20 [facility] Comment on above: Performed By: #### L 100.0100, L500.4050 ####[facility] [address] [place], [address] Calcium [Mass/Vol] 8.7 mg/dL Normal 7.6-11.0 [facility] Comment on above: Performed By: #### L 100.0100, L500.4050 ####[facility] [address] [place], [address] Chloride [Moles/Vol] 110 mmol/L High 98-108 [facility] Comment on above: Performed By: #### L 100.0100, L500.4050 ####[facility] [address] [place], [address] CO2 [Moles/Vol] 18.4 mmol/L Low 21.0-32.0 [facility] Comment on above: Performed By: #### L 100.0100, L500.4050 ####[facility] [address] [place], [address] Creatinine [Mass/Vol] 1.32 mg/dL High 0.70-1.20 [facility] Comment on above: Performed By: #### L 100.0100, L500.4050 ####[facility] [address] [place], [address] ECRCL 42.46 ml/min Low 50-250 [facility] Comment on above: Performed By: #### L 100.0100, L500.4050 ####[facility] [address] [place], [address] GAP 12 Normal 5-15 [facility] Comment on above: Performed By: #### L 100.0100, L500.4050 ####[facility] [address] [place], [address] GFR/1.73 sq M.predicted among non-blacks MDRD (S/P/Bld) [Vol rate/Area] 52 mL/min/{1.73_m2} Low >60 [facility] Comment on above: Result Comment: mL/m in/1.73m2 CKD-EPI Creatinine Equation (2020) Performed By: #### L 100.0100, L500.4050 ####[facility] [address] [place], [address] Globulin (S) [Mass/Vol] 2.7 g/dL Normal 2.2-4.[address] [facility] Comment on above: Performed By: #### L 100.0100, L500.4050 ####[facility] [facility] [address] [place], [address] Glucose [Mass/Vol] 96 mg/dL Normal 70-99 [facility] Comment on above: Performed By: #### L 100.0100, L500.4050 ####[facility] [address] [place], [address] Potassium [Moles/Vol] 4.2 mmol/L Normal 3.3-5.1 [facility] Comment on above: Result Comment: Hemo lysis present, Results??could be affected.?? Performed By: #### L 100.0100, L500.4050 ####[facility] [address] [place], [address] Sodium [Moles/Vol] 140 mmol/L Normal 133-145 [facility] Comment on above: Performed By: #### L 100.0100, L500.4050 ####[facility] [address] [place], [address] T PROT 6.0 g/dL Normal 5.9-8.4 [facility] Comment on above: Performed By: #### L 100.0100, L500.4050 ####[facility] [address] [place], [address] Urea nitrogen [Mass/Vol] 22 mg/dL High 4-19 [facility] Comment on above: Performed By: #### L 100.0100, L500.4050 ####[facility] [address] [place], [address] Consultation - Intensiviston 10-27-2024 Consultation - Cogeneration Technician Normal [facility] Consultation - Surgicalon Consultation - Surgical Normal [facility] Echo Complete W/ Contraston 10-27-2024 Echo Complete W/ Contrast Normal [facility] Echocardiogram study reportO rdered By: Sue Anderson on 10-27-2024 Study report [facility] Work Phone: Lactic Acidon 10-27-2024 Lactate [Moles/Vol] 2.4 mmol/L Invalid Interpretation Code 0.0-2.0 [facility] Comment on above: Result Comment: Crit ical Result(s) Called at: 0346 by:??BRADLEY GUERIN. Results read back by same. Performed By: #### L 503.6005 ####[facility] [address] [place], [address] Legionella Antigen Urineon 0 10-27-2024 LEGU Normal [facility] Comment on above: Performed By: #### M 300.4500, M300.4600 ####[facility] [address] [place], [address] M100.019on 10-27-2024 M100.019 Negative Normal [facility] Comment on above: Performed By: #### M 100.019 ####[facility] [address] [place], [address] M8200.1000on 10-27-2024 M8200.1000 Normal Reference Range = Negative MRSA DNA Nose Ql ELOY+probe GeneXpert Instrument, PCR method MRSA PCR MRSA NEGATIVE Normal [facility] Comment on above: Performed By: #### M 8200.1000 ####[facility] [address] [place], [address] Magnesiumon 10-27-2024 Magnesium [Mass/Vol] 1.4 mg/dL Low 1.5-2.2 [facility] Comment on above: Order Comment: Comme nts: May add to ED labsComments: may add to ED labs Performed By: #### L 501.2300, L501.5200 ####[facility] [address] [place], [address] Nasal methicillin resistant Staphylococcus aureus (MRSA) DNA detection by PCROrdered By: Fernanda Triplett on 10-27-2024 MRSA DNA ELOY+probe Ql (Nose) [facility] Phosphoruson 10-27-2024 Phosphate [Mass/Vol] 3.2 mg/dL Normal 2.7-4.5 [facility] Comment on above: Order Comment: Comme nts: May add to ED labsComments: may add to ED labs Performed By: #### L 501.2300, L501.5200 ####[facility] [address] [place], [address] RESPIRATORY PANEL MOLECULARo n 10-27-2024 RP PANEL Normal [facility] Comment on above: Performed By: #### M 100.638 ####[facility] [address] [place], [address] Respiratory pathogens detect ion panel by molecular detection methodOrdered By: Fernanda Triplett on 10-27-2024 Respiratory pathogens DNA and RNA panel ELOY+probe (Resp) [facility] [id number]-[id number] By: Rupali Bose on 10-27-2024 SARS-CoV-2 (COVID-19) RNA ELOY+probe Ql (Unsp spec) [facility] Strep pneumoniae Antig(UR,CS F)on 10-27-2024 STPAG Normal [facility] Comment on above: Performed By: #### M 300.4500, M300.4600 ####[facility] [address] [place], [place], [id number] Urine Legionella pneumophila antigen detectionOrdered By: Fernanda Triplett on 10-27-2024 L. pneumophila Ag Ql (U) [facility] 12 Lead EKGon 10-26-2024 12 Lead EKG Normal [facility] Absolute lymphocyte countOrd ered By: Akira Blanco on 10-26-2024 Lymphocytes Auto (Unsp spec) [#/Vol] 1.66 10*3/uL 0.83-4.51 [facility] Absolute neutrophil countOrd ered By: Akira Blanco on 10-26-2024 Neutrophils (Bld) [#/Vol] 12.8 10*3/uL High 2.0-7.7 [facility] Anion gap in Serum or Plasma Ordered By: Akira Blanco on 10-26-2024 Anion gap [Moles/Vol] 15 mmol/L 5-15 [facility] Automated lymphocyte count a s percentage of total leukocytesOrdered By: Akira Blanco on 10-26-2024 Lymphocytes/100 WBC Auto (Unsp spec) 10.5 % Low 19-41 [facility] BUN/creatinine ratioOrdered By: Akira Blanco on 10-26-2024 Urea nitrogen/Creatinine [Mass ratio] 15.6 mg/mg 10-20 [facility] Basophil percentageOrdered B y: Akira Blanco on 10-26-2024 Basophils/100 WBC (Bld) 0.7 % 0-[address] [facility] Bilirubin, totalOrdered By: Akira Blanco on 10-26-2024 Bilirubin [Mass/Vol] 1.11 mg/dL 0.00-1.30 [facility] Blood cultureOrdered By: Nora Blanco on 10-26-2024 Bacteria identified Cx Nom (Bld) No growth in 5 days. [facility] CBC W/Diff, Automatedon Absolute Lymph 1.66 X10 3/uL Normal 0.83-4.51 [facility] Comment on above: Performed By: #### L 501.2450, L500.4050, L100.0100 ####[facility] [address] [place], [address] Absolute Neut 12.8 X10 3/uL High 2.0-7.7 [facility] Comment on above: Performed By: #### L 501.2450, L500.4050, L100.0100 ####[facility] [address] [place], [address] Basophils/100 WBC (Bld) 0.7 % Normal 0-[address] [facility] Comment on above: Performed By: #### L 501.2450, L500.4050, L100.0100 ####[facility] [address] [place], [address] Eosinophils/100 WBC (Bld) 0.4 % Normal 0-5 [facility] Comment on above: Performed By: #### L 501.2450, L500.4050, L100.0100 ####[facility] [address] [place], [address] Erythrocyte distribution width (RBC) [Ratio] 15.2 % High 11.6-14.6 [facility] Comment on above: Performed By: #### L 501.2450, L500.4050, L100.0100 ####[facility] [address] [place], [address] Hematocrit (Bld) [Volume fraction] 45.8 % Normal 40-54 [facility] Comment on above: Performed By: #### L 501.2450, L500.4050, L100.0100 ####[facility] [address] [place], [address] Hemoglobin (Bld) [Mass/Vol] 15.2 g/dL Normal 13.0-16.5 [facility] Comment on above: Performed By: #### L 501.2450, L500.4050, L100.0100 ####[facility] [address] [place], [address] IG% 1.400 High 0.0-0.9 [facility] Comment on above: Result Comment: IG% - Immature Granulocytes (promyelocytes, myelocytes andmetamyelocytes) > 1% indicates that a LEFT SHIFT is Present. Performed By: #### L 501.2450, L500.4050, L100.0100 ####[facility] [address] [place], [address] Lymphocytes/100 WBC (Bld) 10.5 % Low 19-41 [facility] Comment on above: Performed By: #### L 501.2450, L500.4050, L100.0100 ####[facility] [address] [place], [address] MCH (RBC) [Entitic mass] 29.5 pg Normal 27.0-32.0 [facility] Comment on above: Performed By: #### L 501.2450, L500.4050, L100.0100 ####[facility] [address] [place], [address] MCHC (RBC) [Mass/Vol] 33.2 g/dL Normal 32-36 [facility] Comment on above: Performed By: #### L 501.2450, L500.4050, L100.0100 ####[facility] [address] [place], [address] MCV (RBC) [Entitic vol] 88.8 fL Normal 80-94 [facility] Comment on above: Performed By: #### L 501.2450, L500.4050, L100.0100 ####[facility] [address] [place], [address] Monocytes/100 WBC (Bld) 6.0 % Normal 0-[address] [facility] Comment on above: Performed By: #### L 501.2450, L500.4050, L100.0100 ####[facility] [address] [place], [address] Neutrophils/100 WBC (Bld) 81.0 % High 47-70 [facility] Comment on above: Performed By: #### L 501.2450, L500.4050, L100.0100 ####[facility] [address] [place], [address] Nucleated RBC (Bld) [#/Vol] 0 10*3/uL Normal 0-5 [facility] Comment on above: Performed By: #### L 501.2450, L500.4050, L100.0100 ####[facility] [address] [place], [address] Platelet mean volume (Bld) [Entitic vol] 10.5 fL Normal 6.2-12.0 [facility] Comment on above: Performed By: #### L 501.2450, L500.4050, L100.0100 ####[facility] [address] [place], [address] Platelets (Bld) [#/Vol] 285 10*3/uL Normal 150-450 [facility] Comment on above: Performed By: #### L 501.2450, L500.4050, L100.0100 ####[facility] [address] [place], [address] RBC (Bld) [#/Vol] 5.16 10*6/uL Normal 4.6-6.2 [facility] Comment on above: Performed By: #### L 501.2450, L500.4050, L100.0100 ####[facility] [address] [place], [address] RDW SD 49.2 fl High 35.1-43.9 [facility] Comment on above: Performed By: #### L 501.2450, L500.4050, L100.0100 ####[facility] [address] [place], [address] WBC (Bld) [#/Vol] 15.8 10*3/uL High 4.4-11.0 [facility] Comment on above: Performed By: #### L 501.2450, L500.4050, L100.0100 ####[facility] [address] [place], [address] Carbon dioxide, total [Moles /volume] in Central venous bloodOrdered By: Akira Blanco on 10-26-2024 CO2 [Moles/Vol] 23.2 mmol/L 21.0-32.0 [facility] Chest without Contraston Chest without Contrast Normal [facility] Chloride assayOrdered By: Marshall Blanco on 10-26-2024 Chloride [Moles/Vol] 102 mmol/L 98-108 [facility] Comprehensive Metabolic Prof ilon 10-26-2024 Albumin [Mass/Vol] 4.5 g/dL Normal 3.4-4.8 [facility] Comment on above: Performed By: #### L 501.2450, L500.4050, L100.0100 ####[facility] [address] [place], [address] Albumin/Globulin [Mass ratio] 1.3 {ratio} Normal 0.9-2.4 [facility] Comment on above: Performed By: #### L 501.2450, L500.4050, L100.0100 ####[facility] [address] [place], [address] ALK PHOS 120 U/L Normal 40-129 [facility] Comment on above: Performed By: #### L 501.2450, L500.4050, L100.0100 ####[facility] [address] [place], [address] ALT [Catalytic activity/Vol] 18 U/L Normal <=46 [facility] Comment on above: Performed By: #### L 501.2450, L500.4050, L100.0100 ####[facility] [address] [place], [address] AST [Catalytic activity/Vol] 34 U/L Normal <=37 [facility] Comment on above: Result Comment: Hemo lysis present, Results??could be affected.?? Performed By: #### L 501.2450, L500.4050, L100.0100 ####[facility] [address] [place], [address] Bilirubin [Mass/Vol] 1.11 mg/dL Normal 0.00-1.30 [facility] Comment on above: Performed By: #### L 501.2450, L500.4050, L100.0100 ####[facility] [address] [place], [address] BUN/CRE 15.6 RATIO Normal 10-20 [facility] Comment on above: Performed By: #### L 501.2450, L500.4050, L100.0100 ####[facility] [address] [place], [address] Calcium [Mass/Vol] 10.7 mg/dL Normal 7.6-11.0 [facility] Comment on above: Performed By: #### L 501.2450, L500.4050, L100.0100 ####[facility] [address] [place], [address] Chloride [Moles/Vol] 102 mmol/L Normal 98-108 [facility] Comment on above: Performed By: #### L 501.2450, L500.4050, L100.0100 ####[facility] [address] [place], [address] CO2 [Moles/Vol] 23.2 mmol/L Normal 21.0-32.0 [facility] Comment on above: Performed By: #### L 501.2450, L500.4050, L100.0100 ####[facility] [address] [place], [address] Creatinine [Mass/Vol] 1.27 mg/dL High 0.70-1.20 [facility] Comment on above: Performed By: #### L 501.2450, L500.4050, L100.0100 ####[facility] [address] [place], [address] ECRCL 44.13 ml/min Low 50-250 [facility] Comment on above: Performed By: #### L 501.2450, L500.4050, L100.0100 ####[facility] [address] [place], [address] GAP 15 Normal 5-15 [facility] Comment on above: Performed By: #### L 501.2450, L500.4050, L100.0100 ####[facility] [address] [place], [address] GFR/1.73 sq M.predicted among non-blacks MDRD (S/P/Bld) [Vol rate/Area] 54 mL/min/{1.73_m2} Low >60 [facility] Comment on above: Result Comment: mL/m in/1.73m2 CKD-EPI Creatinine Equation (2020) Performed By: #### L 501.2450, L500.4050, L100.0100 ####[facility] [address] [place], [address] Globulin (S) [Mass/Vol] 3.6 g/dL Normal 2.2-4.2 [facility] Comment on above: Performed By: #### L 501.2450, L500.4050, L100.0100 ####[facility] [address] [place], [address] Glucose [Mass/Vol] 144 mg/dL High 70-99 [facility] Comment on above: Performed By: #### L 501.2450, L500.4050, L100.0100 ####[facility] [address] [place], [address] Potassium [Moles/Vol] 4.1 mmol/L Normal 3.3-5.1 [facility] Comment on above: Result Comment: Hemo lysis present, Results??could be affected.?? Performed By: #### L 501.2450, L500.4050, L100.0100 ####[facility] [address] [place], [address] Sodium [Moles/Vol] 140 mmol/L Normal 133-145 [facility] Comment on above: Performed By: #### L 501.2450, L500.4050, L100.0100 ####[facility] [address] [place], [address] T PROT 8.1 g/dL Normal 5.9-8.4 [facility] Comment on above: Performed By: #### L 501.2450, L500.4050, L100.0100 ####[facility] [address] [place], [address] Urea nitrogen [Mass/Vol] 20 mg/dL High 4-19 [facility] Comment on above: Performed By: #### L 501.2450, L500.4050, L100.0100 ####[facility] [address] [place], [address] Emergency Department Summary on 10-26-2024 Emergency Department Summary Normal [facility] Eosinophil percentageOrdered By: Akira Blanco on 10-26-2024 Eosinophils/100 WBC (Bld) 0.4 % 0-5 [facility] Erythrocyte distribution wid th ratioOrdered By: Akira Blanco on 10-26-2024 Erythrocyte distribution width (RBC) [Ratio] 15.2 % High 11.6-14.6 [facility] Erythrocyte distribution wid th standard deviationOrdered By: Akira Blanco on 10-26-2024 Erythrocyte distribution width (RBC) [Ratio] 49.2 fl High 35.1-43.9 [facility] Gallbladderon 10-26-2024 Gallbladder Normal [facility] Glomerular filtration rate ( GFR) estimation/1.73 sq m using serum, plasma, or whole bOrdered By: Akira Blanco on 10-26-2024 GFR/1.73 sq M.predicted among non-blacks MDRD (S/P/Bld) [Vol rate/Area] 54 mL/min/{1.73_m2} Low >60 [facility] Comment on above: mL/min/1.73m2 CKD-EP I Creatinine Equation (2020) H AND P Exam - Hospitaliston 10-26-2024 H&P Exam - Hospitalist Normal [facility] Hematocrit Auto (Bld) [Volum e fraction]Ordered By: Akira Blanco on 10-26-2024 Hematocrit (Bld) [Volume fraction] 45.8 % 40-54 [facility] Hemoglobin measurementOrdere d By: Akira Blanco on 10-26-2024 Hemoglobin (Bld) [Mass/Vol] 15.2 g/dL 13.0-16.5 [facility] Immature granulocytes/100 WB C Auto (Bld)Ordered By: Akira Blanco on 10-26-2024 Immature granulocytes/100 WBC (Bld) 1.400 % High 0.0-0.9 [facility] Comment on above: IG% - Immature Granu locytes (promyelocytes, myelocytes and metamyelocytes) > 1% indicates that a LEFT SHIFT is Present. Laboratory - Chemistry and C hemistry - challengeOrdered By: kAira Blanco on 10-26-2024 AST [Catalytic activity/Vol] 34 U/L <38 [facility] Comment on above: Hemolysis present, R esults could be affected. Lactic Acidon 10-26-2024 Lactate [Moles/Vol] 3.2 mmol/L Invalid Interpretation Code 0.0-2.0 [facility] Comment on above: Order Comment: Y Result Comment: Crit ical Result(s) Called at: 2320 by:??BRADLEY JUDD. Results read back by same. Performed By: #### L 503.6005 ####[facility] [address] [place], [place], [address] Lactic acid measurementOrder ed By: Akira Blanco on 10-26-2024 Lactate [Moles/Vol] 3.2 mmol/L High 0.0-2.0 [facility] Comment on above: Critical Result(s) C alled at: 2320 by: BRADLEY VALERA TO LUPE JUDD. Results read back by same. Lipaseon 10-26-2024 Lipase [Catalytic activity/Vol] 15 U/L Normal 13-75 [facility] Comment on above: Result Comment: Hunter allen note:LIPASE revised reference range effective 22.New Lipase methodology. Expected to produce lower valuesthan the previous assay method.NEW Reference Range: 13 - 75 U/L Performed By: #### L 501.2450, L500.4050, L100.0100 ####[facility] [address] [place], [place], [address] Lipase measurementOrdered By : Akira Blanco on 10-26-2024 Lipase [Catalytic activity/Vol] 15 U/L 13-75 [facility] Comment on above: Please note:LIPASE r evised reference range effective 22. New Lipase methodology. Expected to produce lower values than the previous assay method. NEW Reference Range: 13 - 75 U/L MCV (mean corpuscular volume ) determinationOrdered By: Akira Blanco on 10-26-2024 MCV (RBC) [Entitic vol] 88.8 fL 80-[address] [facility] Mean corpuscular hemoglobin (MCH) determinationOrdered By: Akira Blanco on 10-26-2024 MCH (RBC) [Entitic mass] 29.5 pg 27.0-32.0 [facility] Mean corpuscular hemoglobin concentration (MCHC) determinationOrdered By: Akira Blanco on 10-26-2024 MCHC (RBC) [Mass/Vol] 33.2 g/dL 32-36 [facility] Mean platelet volume determi nationOrdered By: Akira Blanco on 10-26-2024 Platelet mean volume (Bld) [Entitic vol] 10.5 fL 6.2-12.0 [facility] Monocyte percentageOrdered B y: Akira Blanco on 10-26-2024 Monocytes/100 WBC (Bld) 6.0 % 0-[address] [facility] Neutrophil percentageOrdered By: Akira Blanco on 10-26-2024 Neutrophils/100 WBC (Bld) 81.0 % High 47-70 [facility] Nucleated red blood cell per centageOrdered By: Akira Blanco on 10-26-2024 Nucleated RBC/100 WBC (Bld) [Ratio] 0 % 0-5 [facility] Platelet countOrdered By: Marshall Blanco on 10-26-2024 Platelets (Bld) [#/Vol] 285 10*3/uL 150-450 [facility] Potassium measurement (mass/ volume)Ordered By: Akira Blanco on 10-26-2024 Potassium (Unsp spec) [Mass/Vol] 4.1 mmol/L 3.3-5.1 [facility] Comment on above: Hemolysis present, R esults could be affected. RBC Auto (Bld) [#/Vol]Ordere d By: Akira Blanco on 10-26-2024 RBC (Bld) [#/Vol] 5.16 10*6/uL 4.6-6.2 [facility] Serum creatinine measurement (mass/volume)Ordered By: Akira Blanco on 10-26-2024 Creatinine [Mass/Vol] 1.27 mg/dL High 0.70-1.20 [facility] Serum globulin measurementOr dered By: Akira Blanco on 10-26-2024 Globulin (S) [Mass/Vol] 3.6 g/dL 2.2-4.[address] [facility] Serum glucose measurement (m ass/volume)Ordered By: Akira Blanco on 10-26-2024 Glucose [Mass/Vol] 144 mg/dL High 70-99 [facility] Serum or plasma alanine lofton otransferase (ALT) measurementOrdered By: Akira Blanco on 10-26-2024 ALT [Catalytic activity/Vol] 18 U/L <47 [facility] Serum or plasma albumin maritza urement (mass/volume)Ordered By: Akira Blanco on 10-26-2024 Albumin [Mass/Vol] 4.5 g/dL 3.4-4.8 [facility] Serum or plasma albumin/glob ulin mass ratioOrdered By: Akira Blanco on 10-26-2024 Albumin/Globulin [Mass ratio] 1.3 {ratio} 0.9-2.4 [facility] Serum or plasma alkaline awa sphatase measurementOrdered By: Akira Blanco on 10-26-2024 ALP [Catalytic activity/Vol] 120 U/L 40-129 [facility] Serum or plasma calcium maritza urement (mass/volume)Ordered By: Akira Blanco on 10-26-2024 Calcium [Mass/Vol] 10.7 mg/dL 7.6-11.0 [facility] Serum or plasma urea nitroge n measurement (mass/volume)Ordered By: Akira Blanco on 10-26-2024 Urea nitrogen [Mass/Vol] 20 mg/dL High 4-19 [facility] Sodium levelOrdered By: Akira Blanco on 10-26-2024 Sodium [Moles/Vol] 140 mmol/L 133-145 [facility] Total proteinOrdered By: Nora Blanco on 10-26-2024 Protein [Mass/Vol] 8.1 g/dL 5.9-8.4 [facility] White blood cell (WBC) count Ordered By: Akira Blanco on 10-26-2024 WBC (Bld) [#/Vol] 15.8 10*3/uL High 4.4-11.0 [facility] Emergency Department Summary on 10-14-2024 Emergency Department Summary Normal [facility] TAZ FOSTER ([id number]) 1935 M Date Time Provider Department 10/10/24 DIPAK AGUILAR During your visit today, we [...] in Jan 2025. Please advise Taz at [phone]. Pt aware to proceed to ER if develops chest pain, Shortness of Breath or severe sx's as discussed. LUPE EatonLaura Issa LPN 10/10/2024 8:[address] [...] without diagnos* (more content not included)... Normal [facility] CNOVon 09-21-2024 CNOV Office Visit ([facility] ) TAZ FOSTER ([id number]) 1935 M Date Time Provider Department 09/21/24 8:40 AM VIKKI WORLEY During your visit today, we recorded the following information about you: Pulse Respiration Blood pressure Weight 101/minute 16/minute 122/70 90.7 kg Vikki Worley APRN.CNP 09/21/2024 5:18 PM Signed This is a 89 year old male who presents today with: Patient presents with: Suture Removal HISTORY OF PRESENT ILLNESS: Taz Foster is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 following information about you: Maryan Torres, RN 05/24/2024 10:43 AM Signed Patient's calls [...] from his time acute rehab facility in [place] for hydralazine 25 mg QID as needed for systolic BP >150. states that she dis not give hydralazine today. Please advise if patient needs to keep taking lasix and about hydralazine prescription. Medication is not listed on patient's medications. Please review and advise, LUPE Bahena Jordan L, DO 05/29/2024 4:53 PM Signed Will forward to [facility] to review with /patient at office visit tomorrow Dipak Aguilar DO Allergies As of Date: 05/24/2024 Noted Allergy Reaction CYPRESS 09/22/2010 14 - Other: See Comments Comments: sneezing,runny nose CEDAR 08/17/2010 3 - Cough Comments: also [place] with same reaction MOLD 08/17/2010 3 - Cough PREDNISONE 05/16/2024 1 - Mental Status Change Comments: Hallucinations Date Reviewed: 05/16/2024 Reviewed by: Radha Berman APRN.[employer] - Fully Assessed Reason for Visit: Patient [...] Encounter Status:Closed by MARYAN TORRES on 05/29/24 [facility] Catie 05-21-2024 CNPN Telephone (FabulyzerWS) TAZ FOSTER ([id number]) 1935 M Date Time Provider Department 05/21/24 DIPAK AGUILAR FAMPWS During your visit today, we recorded the following information about you: Gabrielle Friedman RN 05/21/2024 4:25 PM Signed Moira with [facility] calling with Nursing plan of care. Nursing will see patient 2 times per week for 1 week , then one time per week for 2 weeks for COPD education, edema monitoring and A-Fib management. No call back needed if provider is agreeable to plan. LUPE Eaton Barbara, RN 05/22/2024 2:34 PM Signed See below note as well from assisted. Martina physical therapist from [facility] calling today to update PT plan [...] Hydralazine on hand prescribed by hospital in [place] when he was admitted. Pt is to [...] Date Reviewed: 05/16/2024 Reviewed by: Radha Berman APRN.[employer] - Fully Assessed Reason for Visit: Home [...] [J4* Pers (more content not included)... Normal [facility] CNPNon 05-17-2024 CNPN Telephone (FAMPWS) TAZ FOSTER ([id number]) 1935 M Date Time Provider Department 05/17/24 [facility] During your visit today, we recorded the following information about you: Kylee Fraser, RN 05/17/2024 3:12 PM Signed [facility] called and asked to have last OV noted faxed over. Faxed to fax # [phone]. Allergies As of Date: 05/17/2024 Noted Allergy Reaction CYPRESS 09/22/2010 14 - Other: See Comments Comments: sneezing,runny nose CEDAR 08/17/2010 3 - Cough Comments: also [place] with same reaction MOLD 08/17/2010 3 - Cough PREDNISONE 05/16/2024 1 - Mental Status Change Comments: Hallucinations Date Reviewed: 05/16/2024 Reviewed by: Radha Berman APRN.[employer] - Fully Assessed Reason for Visit: Fax [...] Status:Closed by KYLEE FRASER on 05/17/24 Normal [facility] US DVT LOWER BILon US DVT LOWER [...] of the left and right lower extremities. General Education Professor: BLANK Transcribe Date/Time: May 17 2024 3:38P Dictated by : HENRY PEÑA MD This examination was interpreted and the report reviewed and electronically signed by: HENRY PEÑA MD on May 17 2024 3:42PM EST [id number] Normal [facility] US Lower extremity vein - bi lateralon 05-17-2024 IMPRESSION: Negative study for proximal DVT in the left and right lower extremities. Negative study for calf DVT in the left and right lower extremities. Negative study for superficial thrombophlebitis in the imaged segments of the left and right lower extremities. General Education Professor: BLANK Transcribe Date/Time: May 17 2024 3:38P Dictated by : HENRY PEÑA MD This examination was interpreted and the report reviewed and electronically signed by: HENRY PEAÑ MD on May 17 2024 3:42PM [facility] OF RADIOLOGY * * *Final Report* [...] of the left and right lower extremities. General Education Professor: BLANK Transcribe Date/Time: May 17 2024 3:38P Dictated by : HENRY PEÑA MD This examination was interpreted and the report reviewed and electronically signed by: HENRY PEÑA MD on May 17 2024 3:42PM [facility] Radiology Study observation (narrative) Mayank nelson [facility] US Lower extremity vein - bi lateralOrdered By: Ccf Provider on 05-17-2024 [facility] CBC W Auto Differential pane l (Bld)on 05-16-2024 Basophils (Bld) [#/Vol] 0.1 10*3/uL [facility] Basophils/100 WBC (Bld) 1 % C [facility] [place] [facility] Differential cell count method Nom (Bld) Auto [facility] Eosinophils (Bld) [#/Vol] 0.35 10*3/uL [facility] Eosinophils/100 WBC (Bld) 3.4 % [facility] Erythrocyte distribution width (RBC) [Ratio] 14.7 % 11.5 - 15.0 % [facility] Hematocrit (Bld) [Volume fraction] 45.5 % 39.0 - 51.0 % [facility] Hemoglobin (Bld) [Mass/Vol] 14.9 g/dL 13.0 - 17.0 g/dL [facility] Immature granulocytes (Bld) [#/Vol] 0.11 10*3/uL High [facility] Immature granulocytes/100 WBC (Bld) 1.1 % [facility] Interpretation and review of laboratory results Abnormal [facility] Lymphocytes (Bld) [#/Vol] 2.01 10*3/uL [facility] Lymphocytes/100 WBC (Bld) 19.5 % [facility] MCH (RBC) [Entitic mass] 30 pg 26.0 - 34.0 pg [facility] MCHC (RBC) [Mass/Vol] 32.7 g/dL 30.5 - 36.0 g/dL [facility] MCV (RBC) [Entitic vol] 91.7 fL 80.0 - 100.0 fL [facility] Monocytes (Bld) [#/Vol] 1.29 10*3/uL High [facility] Monocytes/100 WBC (Bld) 12.5 % C [facility] Neutrophils (Bld) [#/Vol] 6.47 10*3/uL [facility] Neutrophils/100 WBC (Bld) 62.5 % [facility] Nucleated RBC (Bld) [#/Vol] NINF [facility] Nucleated RBC/100 WBC (Bld) [Ratio] 0 % /100 WBC [facility] Platelet mean volume (Bld) [Entitic vol] 10.5 fL 9.0 - 12.7 fL [facility] Platelets (Bld) [#/Vol] 220 10*3/uL [facility] RBC (Bld) [#/Vol] 4.96 10*6/uL 4.20 - 6.0 0 m/uL [facility] WBC (Bld) [#/Vol] 10.33 10*3/uL [facility] Basophils (Bld) [#/Vol] 0.10 10*3/uL Normal <0.11 [facility] Comment on above: Order Comment: Speci men Type: BLOOD SPECIMENOrdering Facility: [facility] Address: [address] [place] [address] Performed By: #### 5 7021-8 ####[facility] LABCLIA [id number] [place] [address] [place] Basophils/100 WBC (Bld) 1.0 % Normal C [facility] Comment on above: Order Comment: Speci men Type: BLOOD SPECIMENOrdering Facility: [facility] Address: [address] [place] [address] Performed By: #### 5 7021-8 ####[facility] LABCLIA [id number] [place] [address] [place] Differential cell count method Nom (Bld) Auto Normal [facility] Comment on above: Order Comment: Speci men Type: BLOOD SPECIMENOrdering Facility: [facility] Address: [address] [place] [address] Performed By: #### 5 7021-8 ####[facility] LABCLIA [id number] [place] [address] [place] Eosinophils (Bld) [#/Vol] 0.35 10*3/uL Normal <0.46 [facility] Comment on above: Order Comment: Speci men Type: BLOOD SPECIMENOrdering Facility: [facility] Address: [address] [place] [address] Performed By: #### 5 7021-8 ####[facility] LABCLIA [id number] [address] [address] [place] Eosinophils/100 WBC (Bld) 3.4 % Normal [facility] Comment on above: Order Comment: Speci men Type: BLOOD SPECIMENOrdering Facility: [facility] Address: [address] [place] [address] Performed By: #### 5 7021-8 ####[facility] LABCLIA [id number] [address], [place] [address] [place] Erythrocyte distribution width (RBC) [Ratio] 14.7 % Normal 11.5-15.0 [facility] Comment on above: Order Comment: Speci men Type: BLOOD SPECIMENOrdering Facility: [facility] Address: [address] [place] [address] Performed By: #### 5 7021-8 ####[facility] LABCLIA [id number] [place] [id number] [place] Hematocrit (Bld) [Volume fraction] 45.5 % Normal 39.0-51.0 [facility] Comment on above: Order Comment: Speci men Type: BLOOD SPECIMENOrdering Facility: [facility] Address: [address] [place] [address] Performed By: #### 5 7021-8 ####[facility] LABCLIA [id number] [address] [address] [place] Hemoglobin (Bld) [Mass/Vol] 14.9 g/dL Normal 13.0-17.0 [facility] Comment on above: Order Comment: Speci men Type: BLOOD SPECIMENOrdering Facility: [facility] Address: [address] [place], [place] [address] Performed By: #### 5 7021-8 ####[facility] LABCLIA [id number] [place] [address] [place] Immature granulocytes (Bld) [#/Vol] 0.11 10*3/uL High <0.10 [facility] Comment on above: Order Comment: Speci men Type: BLOOD SPECIMENOrdering Facility: [facility] Address: [address] [place] [address] Performed By: #### 5 7021-8 ####[facility] LABCLIA [id number] [place] [address] [place] Immature granulocytes/100 WBC (Bld) 1.1 % Normal [facility] Comment on above: Order Comment: Speci men Type: BLOOD SPECIMENOrdering Facility: [facility] Address: [address] [place] [address] Performed By: #### 5 7021-8 ####[facility] LABCLIA [id number] [place] [address] [place] Lymphocytes (Bld) [#/Vol] 2.01 10*3/uL Normal 1.00-4.00 [facility] Comment on above: Order Comment: Speci men Type: BLOOD SPECIMENOrdering Facility: [facility] Address: [address] [place] [address] Performed By: #### 5 7021-8 ####[facility] LABCLIA [id number] [place] [address] [place] Lymphocytes/100 WBC (Bld) 19.5 % Normal [facility] Comment on above: Order Comment: Speci men Type: BLOOD SPECIMENOrdering Facility: [facility] Address: [address] [place] [address] Performed By: #### 5 7021-8 ####[facility] LABCLIA [id number] [place] [address] [place] MCH (RBC) [Entitic mass] 30.0 pg Normal 26.0-34.0 [facility] Comment on above: Order Comment: Speci men Type: BLOOD SPECIMENOrdering Facility: [facility] Address: [address] [place] [address] Performed By: #### 5 7021-8 ####[facility] LABCLIA [id number] [address] [address] [place] MCHC (RBC) [Mass/Vol] 32.7 g/dL Normal 30.5-36.0 [facility] Comment on above: Order Comment: Speci men Type: BLOOD SPECIMENOrdering Facility: [facility] Address: [address] [place] [address] Performed By: #### 5 7021-8 ####[facility] LABIA [id number] [place] [address] [place] MCV (RBC) [Entitic vol] 91.7 fL Normal 80.0-100.0 C [facility] Comment on above: Order Comment: Speci men Type: BLOOD SPECIMENOrdering Facility: [facility] Address: [address] [place] [address] Performed By: #### 5 7021-8 ####[facility] LABIA [id number] [place] [address] [place] Monocytes (Bld) [#/Vol] 1.29 10*3/uL High <0.87 [facility] Comment on above: Order Comment: Speci men Type: BLOOD SPECIMENOrdering Facility: [facility] Address: [address] [place] [address] Performed By: #### 5 7021-8 ####[facility] LABCLIA [id number] [place] [address] [place] Monocytes/100 WBC (Bld) 12.5 % Normal C [facility] Comment on above: Order Comment: Speci men Type: BLOOD SPECIMENOrdering Facility: [facility] Address: [address] [place] [address] Performed By: #### 5 7021-8 ####[facility] LABCLIA [id number] [address] [place] [address] [place] Neutrophils (Bld) [#/Vol] 6.47 10*3/uL Normal 1.45-7.50 [facility] Comment on above: Order Comment: Speci men Type: BLOOD SPECIMENOrdering Facility: [facility] Address: [address] [place] [address] Performed By: #### 5 7021-8 ####[facility] LABCLIA [id number] [address], [place] [address] [place] Neutrophils/100 WBC (Bld) 62.5 % Normal [facility] Comment on above: Order Comment: Speci men Type: BLOOD SPECIMENOrdering Facility: [facility] Address: [address] [place] [address] Performed By: #### 5 7021-8 ####[facility] LABCLIA [id number] [address], [place] [address] [place] Nucleated RBC (Bld) [#/Vol] 10*3/uL Normal <0.01 [facility] Comment on above: Order Comment: Speci men Type: BLOOD SPECIMENOrdering Facility: [facility] Address: [address] [place] [address] Performed By: #### 5 7021-8 ####[facility] LABCLIA [id number] [facility] [address], [id number] [place] Nucleated RBC/100 WBC (Bld) [Ratio] 0.0 /100 WBC Normal [facility] Comment on above: Order Comment: Speci men Type: BLOOD SPECIMENOrdering Facility: [facility] Address: [address] [place] [address] Performed By: #### 5 7021-8 ####[facility] LABCLIA [id number] [address], [id number] [place] Platelet mean volume (Bld) [Entitic vol] 10.5 fL Normal 9.0-12.7 [facility] Comment on above: Order Comment: Speci men Type: BLOOD SPECIMENOrdering Facility: [facility] Address: [address] [place] [address] Performed By: #### 5 7021-8 ####[facility] LABCLIA [id number] [place] [address] [place] Platelets (Bld) [#/Vol] 220 10*3/uL Normal 150-400 [facility] Comment on above: Order Comment: Speci men Type: BLOOD SPECIMENOrdering Facility: [facility] Address: [address] [place] [address] Performed By: #### 5 7021-8 ####[facility] LABIA [id number] [place] [address] [place] RBC (Bld) [#/Vol] 4.96 10*6/uL Normal 4.20-6.00 [facility] Comment on above: Order Comment: Speci men Type: BLOOD SPECIMENOrdering Facility: [facility] Address: [address] [place] [address] Performed By: #### 5 7021-8 ####[facility] LABIA [id number] [place] [address] [place] WBC (Bld) [#/Vol] 10.33 10*3/uL Normal 3.70-11.00 [facility] Comment on above: Order Comment: Speci men Type: BLOOD SPECIMENOrdering Facility: [facility] Address: [address] [place] [address] Performed By: #### 5 7021-8 ####[facility] LABIA [id number] [place] [id number] [place] CNOVon 05-16-2024 CNOV Office Visit (FAMPWS ) TAZ FOSTER ([id number]) 1935 M Date Time Provider Department 05/16/24 1:00 PM RADHA BERMAN During your visit today, we recorded the following information about you: Pulse Respiration Blood pressure Weight 87/minute 16/minute 130/68 96.3 kg Radha Berman, MEDICAL RECORDS DIRECTOR.[employer] 05/16/2024 6:48 PM Signed Chief Complaint Patient presents with: needs referral for pt and ot and uology referral HPI Taz Foster is a 89 year old male who presents here today for Above Complaints. Taz is an established patient of Dr. Jeff DO. Pt was admitted to [facility] in [place] on 04/13 and 04/15. 04/13-- dx with [...] facility on 05/11 and drove back to [place] with and daughter. Hx of CVA in December. Never followed up with neurology d/t going to [place] for the winter months just after this. [...] Family reports legs elevated entire drive from [place] Denies any SOB. Pt is on eliquis since stroke. Needs assistance at home. Currently lives at home back in [place] with . Daughter lives nearby to help. Does not want to move into assistive living or [facility]. Daughter agrees if they can get PT, OT, home health aide, and usp to come to home, he should be [...] on any diuretic. Traveled by car from [place] to [place] yesterday. Reports having legs elevated during the [...] GERD (gastroesophageal reflux disease) Melanoma (HCC) 1991 [place] [facility] Persistent atrial fibrillation (HCC) 10/11/2019 Admitted 09/05/2019 [facility]. Followed by [facility]. Previous Surgical History PAST SURGICAL [...] WHEN PFRM (more content not included)... Normal [facility] Comprehensive metabolic 2000 panelon 05-16-2024 Albumin [Mass/Vol] 3.8 g/dL Low 3.9-4.9 [facility] Comment on above: Order Comment: Speci men Type: BLOOD SPECIMENOrdering Facility: [facility] Address: [address] [place] [address] Performed By: #### 3 016-3, 39730-4, 36555-0, 76364-6 ####[facility] LABIA [id number] [place] [address] [place] ALP [Catalytic activity/Vol] 126 U/L High 38-113 [facility] Comment on above: Order Comment: Speci men Type: BLOOD SPECIMENOrdering Facility: [facility] Address: [address] [place] [address] Performed By: #### 3 016-3, 86292-0, 90996-1, 43441-5 ####[facility] LABIA [id number] [place] [address] [place] ALT [Catalytic activity/Vol] 16 U/L Normal 10-54 [facility] Comment on above: Order Comment: Speci men Type: BLOOD SPECIMENOrdering Facility: [facility] Address: [address] [place] [address] Performed By: #### 3 016-3, 84318-2, 08386-9, 63738-0 ####[facility] LABCLIA [id number] [place] [id number] [place] Anion gap [Moles/Vol] 10 mmol/L Normal 8-15 [facility] Comment on above: Order Comment: Speci men Type: BLOOD SPECIMENOrdering Facility: [facility] Address: [address] [place] [address] Performed By: #### 3 016-3, 52480-9, 50571-7, 01565-8 ####[facility] LABIA [id number] [place] [address] [place] AST [Catalytic activity/Vol] 26 U/L Normal 14-40 [facility] Comment on above: Order Comment: Speci men Type: BLOOD SPECIMENOrdering Facility: [facility] Address: [address] [place] [address] Performed By: #### 3 016-3, 15300-7, 63901-3, 81736-3 ####[facility] LABIA [id number] [place] [address] [place] Bilirubin [Mass/Vol] 0.9 mg/dL Normal 0.2-1.3 [facility] Comment on above: Order Comment: Speci men Type: BLOOD SPECIMENOrdering Facility: [facility] Address: [address] [place] [address] Performed By: #### 3 016-3, 36163-7, 09833-0, 65521-8 ####[facility] LABIA [id number] [place] [id number] [place] Calcium [Mass/Vol] 10.2 mg/dL Normal 8.5-10.2 [facility] Comment on above: Order Comment: Speci men Type: BLOOD SPECIMENOrdering Facility: [facility] Address: [address] [place] [address] Performed By: #### 3 016-3, 94584-6, 81462-7, 90414-9 ####[facility] LABCLIA [id number] [place] [id number] [place] Chloride [Moles/Vol] 106 mmol/L Normal 98-107 [facility] Comment on above: Order Comment: Speci men Type: BLOOD SPECIMENOrdering Facility: [facility] Address: [address] [place] [address] Performed By: #### 3 016-3, 62077-6, 78678-9, 65964-3 ####[facility] LABIA [id number] [place] [address] [place] CO2 [Moles/Vol] 26 mmol/L Normal 22-30 [facility] Comment on above: Order Comment: Speci men Type: BLOOD SPECIMENOrdering Facility: [facility] Address: [address] [place] [address] Performed By: #### 3 016-3, 46591-2, 52931-6, 15690-0 ####[facility] LABIA [id number] [place] [address] [place] Creatinine [Mass/Vol] 1.29 mg/dL High 0.73-1.22 [facility] Comment on above: Order Comment: Speci men Type: BLOOD SPECIMENOrdering Facility: [facility] Address: [address] [place] [address] Performed By: #### 3 016-3, 62978-8, 75376-6, 59581-0 ####[facility] LABIA [id number] [place] [address] [place] Creatinine and Glomerular filtration rate.predicted panel (S/P/Bld) 53 mL/min/1.73m??? Low >=60 [facility] Comment on above: Order Comment: Speci men Type: BLOOD SPECIMENOrdering Facility: [facility] Address: [address] [place] [address] Result Comment: Yani mated Glomerular Filtration Rate [...] actual GFR. Performed By: #### 3 016-3, 54647-3, 19047-2, 84239-9 ####[facility] LABIA [id number] [address] [address] [place] Glucose [Mass/Vol] 117 mg/dL High 74-99 [facility] Comment on above: Order Comment: Specgonzález men Type: BLOOD SPECIMENOrdering Facility: [facility] Address: [address] [place] [address] Result Comment: The [place] Diabetes Association (ADA) provides guidance for cutoff [...] Standards of Medical Care in Diabetes 2016, [place] Diabetes Association. Diabetes Care. 2016.39(Suppl 1). Performed By: #### 3 016-3, 14553-1, 91214-2, 45376-9 ####[facility] LABIA [id number] [place] [id number] [place] Potassium [Moles/Vol] 4.2 mmol/L Normal 3.7-5.1 [facility] Comment on above: Order Comment: Speci men Type: BLOOD SPECIMENOrdering Facility: [facility] Address: [address] [place] [address] Performed By: #### 3 016-3, 07147-4, 67393-0, 48047-3 ####[facility] LABIA [id number] [address] [address] [place] Protein [Mass/Vol] 7.3 g/dL Normal 6.3-8.0 [facility] Comment on above: Order Comment: Speci men Type: BLOOD SPECIMENOrdering Facility: [facility] Address: [address] [place] [address] Performed By: #### 3 016-3, 28260-4, 61576-1, 40989-3 ####[facility] [id number] [place] [address] [place] Sodium [Moles/Vol] 142 mmol/L Normal 136-144 [facility] Comment on above: Order Comment: Speci men Type: BLOOD SPECIMENOrdering Facility: [facility] Address: [address] [place] [address] Performed By: #### 3 016-3, 36473-5, 93015-4, 33876-5 ####[facility] [id number] [place] [id number] [place] Urea nitrogen [Mass/Vol] 21 mg/dL Normal 9-24 [facility] Comment on above: Order Comment: Speci men Type: BLOOD SPECIMENOrdering Facility: [facility] Address: [address] [place], [place] [address] Performed By: #### 3 016-3, 59155-2, 07534-8, 03943-8 ####[facility] LABR[facility] [id number] [place] [id number] [place] HbA1c (Bld)on 05-16-2024 Average glucose Estimated from glycated hemoglobin (Bld) [Mass/Vol] 148 mg/dL [facility] Comment on above: eAG: (Estimated aver age glucose) is a calculated value from HgbA1c and is sales representative leather goods of the average blood glucose level in the last 2-3 month period. HbA1c (Bld) [Mass fraction] 6.8 % High 4.3 - 5.6 % [facility] Comment on above: [place] Diabetes As sociation guidelines indicate that patients with HgbA1c in the range 5.7-6.4% are at increased risk for development of diabetes, and intervention by lifestyle modification may be beneficial. HgbA1c greater or equal to 6.5% is considered diagnostic of diabetes. Interpretation and review of laboratory results Abnormal [facility] Average glucose Estimated from glycated hemoglobin (Bld) [Mass/Vol] 148 mg/dL Normal [facility] Comment on above: Order Comment: Jayson moffett Type: BLOOD SPECIMENOrdering Facility: [facility] Address: [address] [place] [address] Result Comment: eAG: (Estimated average glucose) is a calculated value from HgbA1c and is sales representative leather goods of the average blood glucose level in the last 2-3 month period. Performed By: #### 5 5454-3 ####[facility] LABIA [id number] [place] [address] [place] [facility] HbA1c (Bld) [Mass fraction] 6.8 % High 4.3-5.6 [facility] Comment on above: Order Comment: Jayson moffett Type: BLOOD SPECIMENOrdering Facility: [facility] Address: [address] [place] [address] Result Comment: [place] Diabetes Association guidelines indicate that patients with HgbA1c in the range 5.7-6.4% are at increased risk for development of diabetes, and intervention by lifestyle modification may be beneficial. HgbA1c greater or equal to 6.5% is considered diagnostic of diabetes. Performed By: #### 5 5454-3 ####[facility] LABIA [id number] [place] [address] [place] Lipid 1996 panelon 5 Cholesterol [Mass/Vol] 65 mg/dL Normal <200 [facility] Comment on above: Order Comment: Jayson moffett Type: BLOOD SPECIMENOrdering Facility: [facility] Address: [address] [place] [address] Result Comment: <200 mg/dL, Desirable 200-239 mg/dL, Borderline high >239 mg/dL, High Performed By: #### 3 016-3, 27792-3, 58581-8, 48989-4 ####[facility] LABCLIA [id number] [facility] [id number] [address] [place] Cholesterol in HDL [Mass/Vol] 27 mg/dL Low >39 [facility] Comment on above: Order Comment: Speci men Type: BLOOD SPECIMENOrdering Facility: [facility] Address: [address] [place] [address] Result Comment: 40-5 9 mg/dL, Acceptable >59 mg/dL, High: Negative risk factor for coronary heart disease <40 mg/dL, Low: Positive risk factor for coronary heart disease Performed By: #### 3 016-3, 16809-9, 36858-0, 19246-0 ####[facility] LABCLIA [id number] [address], [id number] [place] Cholesterol in LDL [Mass/Vol] 21 mg/dL Normal <100 [facility] Comment on above: Order Comment: Speci men Type: BLOOD SPECIMENOrdering Facility: [facility] Address: [address] [place] [address] Result Comment: <100 mg/dL, Optimal 100-129 mg/dL, Near optimal/above optimal 130-159 mg/dL, Borderline high 160-189 mg/dL, High >189 mg/dL, Very high Secondary prevention optimal LDL Cholesterol levels are recommended to be < 70 mg/dL Performed By: #### 3 016-3, 49553-1, 63601-6, 02259-9 ####[facility] LABCLIA [id number] [address] [place] [address] [place] Cholesterol in LDL/Cholesterol in HDL [Mass ratio] 0.78 {ratio} Normal <2.54 [facility] Comment on above: Order Comment: Speci men Type: BLOOD SPECIMENOrdering Facility: [facility] Address: [address] [place] [address] Result Comment: Refe rence: 1. National Cholesterol Education Program ATP III Guideline At-A-Glance Quick Desk Reference: National Heart, Lung, and Blood [place]. National Institutes of Health. 2001: NIH Publication No. 01-3305. 2. An International Atherosclerosis Society position paper: global recommendations for the management of dyslipidemia: executive summary, Atherosclerosis. 2014: 232(2):410-413. Performed By: #### 3 016-3, 79935-2, 33955-7, 64439-4 ####[facility] LABCLIA [id number] [place] [address] [place] Cholesterol in VLDL [Mass/Vol] 17 mg/dL Normal <30 [facility] Comment on above: Order Comment: Speci men Type: BLOOD SPECIMENOrdering Facility: [facility] Address: [address] [place] [address] Performed By: #### 3 016-3, 99309-8, 42123-9, 57679-0 ####[facility] LABCLIA [id number] [place] [address] [place] Cholesterol non HDL [Mass/Vol] 38 mg/dL Normal <130 [facility] Comment on above: Order Comment: Speci men Type: BLOOD SPECIMENOrdering Facility: [facility] Address: [address] [place] [address] Result Comment: <130 mg/dL, Optimal 130-159 mg/dL, Near optimal/above optimal 160-189 mg/dL, Borderline high 190-219 mg/dL, High >219 mg/dL, Very high Secondary prevention optimal non HDL Cholesterol levels are recommended to be <100 mg/dL Performed By: #### 3 016-3, 18905-2, 72925-3, 71771-1 ####[facility] LABCLIA [id number] [place] [id number] [place] Cholesterol.total/Akash sterol in HDL [Mass ratio] 2.41 {ratio} Normal <5.10 [facility] Comment on above: Order Comment: Speci men Type: BLOOD SPECIMENOrdering Facility: [facility] Address: [address] [place] [address] Performed By: #### 3 016-3, 08907-8, 79863-4, 43355-4 ####[facility] LABCLIA [id number] [place] [address] [place] FASTING TIME 3 hrs Normal [facility] Comment on above: Order Comment: Speci men Type: BLOOD SPECIMENOrdering Facility: [facility] Address: [address] [place] [address] Performed By: #### 3 016-3, 40511-6, 85862-5, 00715-3 ####[facility] LABCLIA [id number] [address], [place] [address] [place] Triglyceride [Mass/Vol] 85 mg/dL Normal <150 [facility] Comment on above: Order Comment: Speci men Type: BLOOD SPECIMENOrdering Facility: [facility] Address: [address] [place] [address] Result Comment: <150 mg/dL, Normal 150-199 mg/dL, Borderline high 200-499 mg/dL, High >499 mg/dL, Very high Performed By: #### 3 016-3, 94172-5, 79582-4, 78807-7 ####[facility] LABCLIA [id number] [address] [place] NT-proBNP SerPl-ncon 05-16 Natriuretic peptide.B prohormone N-Terminal [Mass/Vol] 3593 pg/mL High <450 [facility] Comment on above: Order Comment: Speci men Type: BLOOD SPECIMENOrdering Facility: [facility] Address: [address] [place] [address] Performed By: #### 3 016-3, 75345-7, 15266-9, 91872-8 ####[facility] LABCLIA [id number] [address], [id number] [place] TSH SerPl-aCncon 05-16-2024 TSH Qn 2.660 m[IU]/L Normal 0.270-4.200 [facility] Comment on above: Order Comment: Speci men Type: BLOOD SPECIMENOrdering Facility: [facility] Address: [address] [place], [place] [address] [address] Performed By: #### 3 016-3, 13895-7, 43806-7, 00754-6 ####[facility] LABCLIA [id number] [place] [address] CNPNon 01-31-2024 CNPN Telephone (CAWSTR) TAZ FOSTER ([id number]) 1935 M Date Time Provider Department 01/31/24 [...] Patient called and given the below results. Eveloi Jack RN Allergies As of Date: 01/31/2024 [...] Encounter Status:Closed by EVELIO JACK [facility] ([id number]) 1935 M Date Time Provider Department 01/09/24 [facility]AR [facility] During your visit today, we recorded the following information about you: Monica Vernon LPN 01/09/2024 1:28 PM Signed Pt calls states has been trying to take the atorvastatin but keeps getting terrible diarrhea. Asking if something different could be called into pharmacy in its place. Pt is [facility] wanting this called to [facility] [place] [facility] Dipak Miranda, 01/10/2024 4:26 PM Signed Please have patient stop the lipitor and trial on rx as below Dipak Aguilar DO The following approved medication requests have been transmitted electronically. Requested Prescriptions Signed Prescriptions Disp Refills rosuvastatin (CRESTOR) 20 mg tablet 90 tablet 1 Sig: Take 1 tablet by mouth daily at bedtime. Authorizing Provider: DIPAK AGUILAR DO DetLaura Saeed CRISTOFER 01/10/2024 4:32 PM Signed Pt. informed. Allergies [...] Status:Closed by LAURA BEJARANO LPN on 01/10/24 [facility] Catie 01-04-2024 [facility] Telephone (AGCARDPOB ) TAZ FOSTER ([id number]) 1935 M Date Time Provider Department 01/04/24 ANALISA NICOLE popchipsARDPOB During your visit today, we recorded the following information about you: Jacob Escobar 01/04/2024 2:53 PM Signed Clearance scanned in from [facility] placed in Dr. Nicole box to be reviewed. Jacob Escobar January 04, 2024 2:53 PM Jacob Escobar 01/24/2024 3:51 PM Signed Recieved completed clearance scanned in documents and faxed back to sender. Jacob Escoabr January 24, 2024 3:51 PM Allergies As of Date: 01/04/2024 Noted Allergy Reaction CYPRESS 09/22/2010 14 - Other: See Comments Comments: sneezing,runny nose CEDAR 08/17/2010 3 - Cough Comments: also [place] with same reaction MOLD 08/17/2010 3 - Cough Date Reviewed: 12/12/2023 Reviewed by: Nessa Ingram, RT(R) - Partially Assessed Reason for Visit: Cardiac Clearance [3461] Prescriptions as of 01/24/2024 - rosuvastatin (CRESTOR) [...] Encounter Status:Closed by JACOB ESCOBAR on [facility]/04/24 [facility] (FAMCarWS[facility] TAZ FOSTER ([id number]) 1935 M Date Time Provider Department 12/13/23 [...] Otherwise everything else looks good. Elisa Garcia APRN.Genia Nicholson MA 12/13/2023 8:53 AM Signed Pt notified. He received an email from the lung nodule clinic but states he leaves tomorrow for [place] for 6 months and will call to set up appt when he returns. GeniaMADISYN Lovett Rebekah, APRN.CNP 12/13/2023 1:34 PM Signed Noted, [...] nodule [R91.1] Order(s):CONSULT TO LUNG NODULE CLINIC [[id number]] Order #: [id number]: 1 FUTURE Prescriptions as of 12/13/2023 - [...] Encounter Status:Closed by ELISA GARCIA on 12/13/23 [facility] CNNURSE Nurse Visit (CAWSTR) ATZ FOSTER ([id number]) 1935 M Date Time Provider Department 12/12/23 11:20 AM [facility]URSE [facility] CAWSTR During your visit today, we [...] Evelio Jack RN Reversal agent used:None LOT [id number] EXP 06/16 IV SITE: IV palced by nuclear tecnologist POST EXAM PIV STATUS: Discontinued by Orchid Transplanter PATIENT DISCHARGED TO: Nuclear Medicine Department for post stress imaging A Diagnostic radioactive procedure has taken place, with no further precautions necessary other than routine body substance precautions. More information regarding radiation safety can be found using this link: [email or web address]% 20Protection%20-- %20Diagnostic%20Nucle ar%20Medicine%20Proce dures.pdf SIGNATURE: Evelio Jack RN PATIENT NAME:Taz Foster DATE: 12/12/23 TIME: 3:56 PM Referring Provider: ANALISA NICOLE [[id number]] Allergies As of Date: 12/12/2023 Noted Allergy [...] Encounter Status:Closed by EVELIO JACK on 12/12/23 [facility] Catie 12-12-2023 [facility] (CAWSTR) TZA FOSTER ([id number]) 1935 M Date Time Provider Department 12/12/23 [facility] NICOLE [facility] During your visit today, we recorded the following information about you: Ananya Carter LPN 12/12/2023 8:14 AM Signed Patient has a stress test this morning at 10am. He mistakenly took his Atorvastatin and was not sure if he should reschedule. He is leaving out of state for 6 months on Tuesday as well. Please call patient back at [phone]. Ananya Carter LPN Allergies As of Date: 12/12/2023 Noted Allergy Reaction CYPRESS 09/22/2010 14 - Other: See Comments Comments: sneezing,runny nose CEDAR 08/17/2010 3 - Cough Comments: also [place] with same reaction MOLD 08/17/2010 3 - Cough Date Reviewed: 12/05/2023 Reviewed by: Lvaern Blakely RPFT - Fully Assessed Prescriptions as [...] Encounter Status:Closed by ANANYA CARTER on 12/12/23 [facility] CARDIAC PERF STRESS/PHARM on 12-12-2023 [place] CARDIAC PERF STRESS/PHARM * * *Final Report* * * DATE OF EXAM: Dec 12 2023 12:50PM [address] CARDIAC PERF STRESS/PHARM / PROCEDURE REASON: Shortness of breath * * * * Physician Interpretation * * * * PATIENT: Name: MR. TAZ FOSTER Age: 88 years Gender: M CONCLUSIONS: [...] later. See administered radiotracer and doses below. [facility] Date of service: 12/12/2023 7:52:14 AM Ordering Physician: ANALISA NICOLE. Requesting Physician: ANALISA NICOLE Indication: Assessment for suspected CAD and CP - ECG interpretable AND able to exercise with interm/high pre-test probability Interpreting physician: Jose oByd MD Height: 180.34 cm BSA: 2.14 m? [...] * * * Final * * * -------- Stress ECG Report: [facility] Date of service: 12/12/2023 7:52:14 AM Ordering physician: ANALISA NICOLE record center specialist: Evelio Jack RN Interpreting physician: Ilan Mata MD Patient name: MR. TAZ FOSTER Age: 88 years Gender: M Height: [...] 148/82 mmHg. The double product achieved [place] [address]. Medications: Last Used METOPROLOL 2 Days Resting ECG: Atrial Fib/Flutter, Complete RBBB and Rare PVCs (<3/Min) Symptoms at rest: No symptoms Pharamcologic Protocol: Regadenoson Stress Exercise Table: +-----+---+---+---+ Stage HR SYS BAYRON +-----+---+---+---+ 1 130 +-----+---+---+---+ 2 130 122 72 +-----+---+---+---+ 3 123 +-----+---+---+---+ 4 120 148 82 +-----+---+---+---+ +-----+---+---+---+ HR SYS BAYRON +-----+---+---+---+ Final 120 148 82 +-----+---+---+---+ +------+ ---------+ Stage Arrhythmias +------+ ---------+ 1 Regadenoson Injection and Isotope Injection +------+ ---------+ Recovery Table: +------+---+---+---+ Stage HR SYS BAYRON +------+---+---+---+ 1 115 +------+---+---+---+ 2 141 144 78 +------+---+---+---+ 3 121 +------+---+---+---+ 4 127 152 82 +------+---+---+---+ Stress Observati (more content not included)... Normal [facility] W stress and W radionuclide Chuck 12-12-2023 * * *Final Report* * * DATE OF EXAM: Dec 12 2023 12:50PM [address] CARDIAC PERF STRESS/PHARM / PROCEDURE REASON: Shortness of breath * * * * Physician Interpretation * * * * PATIENT: Name: MR. TAZ FOSTER Age: 88 years Gender: M CONCLUSIONS: [...] later. See administered radiotracer and doses below. [facility] Date of service: 12/12/2023 7:52:14 AM [...] * * * Final * * * -------- Stress ECG Report: [facility] Date of service: 12/12/2023 7:52:14 AM Ordering physician: ANALISA NICOLE record center specialist: Evelio Jack RN Interpreting physician: Ilan Mata MD Patient name: MR. TAZ FOSTER Age: 88 years Gender: M Height: [...] 148/82 mmHg. The double product achieved was [address]. Medications: Last Used METOPROLOL 2 Days Resting ECG: Atrial Fib/Flutter, Complete RBBB and Rare PVCs (<3/Min) Symptoms at rest: No symptoms Pharamcologic Protocol: Regadenoson Stress Exercise Table: +-----+---+---+---+ Stage HR SYS BAYRON +-----+---+---+---+ 1 130 +-----+---+---+---+ 2 130 122 72 +-----+---+---+---+ 3 123 +-----+---+---+---+ 4 120 148 82 +-----+---+---+---+ +-----+---+---+---+ HR SYS BAYRON +-----+---+---+---+ Final 120 148 82 +-----+---+---+---+ +------+ ---------+ Stage Arrhythmias (more content not included)... DIVISION OF RADIOLOGY Provider, [facility]12/[facility]23 * * *Final Report* * * DATE OF EXAM: Dec 12 2023 12:50PM [facility] 0006 - [place] CARDIAC PERF STRESS/PHARM / PROCEDURE REASON: Shortness of breath * * * * Physician Interpretation * * * * PATIENT: Name: MR. TAZ FOSTER Age: 88 years Gender: M CONCLUSIONS: [...] later. See administered radiotracer and doses below. [facility] Date of service: 12/12/2023 7:52:14 AM [...] * * * Final * * * -------- Stress ECG Report: [facility] Date of service: 12/12/2023 7:52:14 AM Ordering physician: ANALISA NICOLE record center specialist: Evelio Jack RN Interpreting physician: Ilan Mata MD Patient name: MR. TAZ FOSTER Age: 88 years Gender: M Height: [...] 148/82 mmHg. The double product achieved was [address]. Medications: Last Used METOPROLOL 2 Days Resting ECG: Atrial Fib/Flutter, Complete RBBB and Rare PVCs (<3/Min) Symptoms at rest: No symptoms Pharamcologic Protocol: Regadenoson Stress Exercise Table: +-----+---+---+---+ Stage HR SYS BAYRON +-----+---+---+---+ 1 130 +-----+---+---+---+ 2 130 122 72 +-----+---+---+---+ 3 123 +-----+---+---+---+ 4 120 148 82 +-----+---+---+---+ +-----+---+---+---+ HR SYS BAYRON +-----+---+---+---+ Final 120 148 82 +-----+---+---+---+ +------+ ---------+ Stage Arrhythmias +------+ ---------+ 1 Regadenoson Injection and Isotope Injection +------+ ---------+ Recovery Table: +------+---+---+---+ Stage HR SYS BAYRON +------+---+---+---+ 1 115 (more content not included)... [facility] Radiology Study observation (narrative) [facility] [place] Heart Perfusion W stress and W radionuclide IVOrdered By: Ccf Provider on 12-12-2023 [facility] Catie 12-06-2023 CNPN Telephone (FAMPWS) TAZ FOSTER ([id number]) 1935 M Date Time Provider Department 12/06/23 [facility] During your visit today, we recorded the following information about you: Dipak Aguilar DO 12/06/2023 9:42 AM Signed Please inform patient that his iron levels are normal DO Whitley Baeza Brittany L, MA 12/06/2023 10:38 AM Signed Patient active MyChart. Patient notified via [employer] message. Jair Ziegler MA Allergies As of [...] Status:Closed by JAIR ZIEGLER on 12/06/23 Normal [facility] CBC W Auto Differential pane l (Bld)on 12-05-2023 Basophils (Bld) [#/Vol] 0.11 10*3/uL High <0.11 [facility] Comment on above: Order Comment: Speci men Type: BLOOD SPECIMENOrdering Facility: [facility] Address: [address] [place] [address] Performed By: #### 5 7021-8 ####[facility] [id number] [place] [address] [place] Basophils/100 WBC (Bld) 1.1 % Normal C [facility] Comment on above: Order Comment: Speci men Type: BLOOD SPECIMENOrdering Facility: [facility] Address: [address] [place] [address] Performed By: #### 5 7021-8 ####[facility] [id number] [place] [address] [place] Differential cell count method Nom (Bld) Auto Normal [facility] Comment on above: Order Comment: Speci men Type: BLOOD SPECIMENOrdering Facility: [facility] Address: [address] [place] [address] Performed By: #### 5 7021-8 ####[facility] [id number] [place] [address] [place] Eosinophils (Bld) [#/Vol] 0.60 10*3/uL High <0.46 [facility] Comment on above: Order Comment: Speci men Type: BLOOD SPECIMENOrdering Facility: [facility] Address: [address] [place] [address] Performed By: #### 5 7021-8 ####[facility] MIRNALIA [id number] [place] [address] [place] Eosinophils/100 WBC (Bld) 5.8 % Normal [facility] Comment on above: Order Comment: Speci men Type: BLOOD SPECIMENOrdering Facility: [facility] Address: [address] [place] [address] Performed By: #### 5 7021-8 ####[facility]PITALNATHENLIA [id number] [place] [address] [place] Erythrocyte distribution width (RBC) [Ratio] 14.0 % Normal 11.5-15.0 [facility] Comment on above: Order Comment: Speci men Type: BLOOD SPECIMENOrdering Facility: [facility] Address: [address] [place] [address] Performed By: #### 5 7021-8 ####[facility]IC[facility] [id number] [place] [address] [place] Hematocrit (Bld) [Volume fraction] 49.8 % Normal 39.0-51.0 [facility] Comment on above: Order Comment: Speci men Type: BLOOD SPECIMENOrdering Facility: [facility] Address: [address] [place] [address] Performed By: #### 5 7021-8 ####[facility] STEPHANIEPENDLETONNATHENLIA [id number] [place] [address] [place] Hemoglobin (Bld) [Mass/Vol] 17.2 g/dL High 13.0-17.0 [facility] Comment on above: Order Comment: Speci men Type: BLOOD SPECIMENOrdering Facility: [facility] Address: [address] [place] [address] Performed By: #### 5 7021-8 ####[facility]PITALNCLIA [id number] [place] [address] [place] Immature granulocytes (Bld) [#/Vol] 0.16 10*3/uL High <0.10 [facility] Comment on above: Order Comment: Speci men Type: BLOOD SPECIMENOrdering Facility: [facility] Address: [address] [place] [address] Performed By: #### 5 7021-8 ####[facility] [id number] [place] [address] [place] Immature granulocytes/100 WBC (Bld) 1.5 % Normal [facility] Comment on above: Order Comment: Speci men Type: BLOOD SPECIMENOrdering Facility: [facility] Address: [address] [place] [address] Performed By: #### 5 7021-8 ####[facility] HOSPITALNCLI [id number] [place] [address] [place] Lymphocytes (Bld) [#/Vol] 1.87 10*3/uL Normal 1.00-4.00 [facility] Comment on above: Order Comment: Speci men Type: BLOOD SPECIMENOrdering Facility: [facility] Address: [address] [place] [address] Performed By: #### 5 7021-8 ####[facility] CLINICLIA [id number] [place] [address] [place] Lymphocytes/100 WBC (Bld) 18.0 % Normal [facility] Comment on above: Order Comment: Speci men Type: BLOOD SPECIMENOrdering Facility: [facility] Address: [address] [place] [address] Performed By: #### 5 7021-8 ####[facility]OSPITALNCLIA [id number] [place] [address] [place] MCH (RBC) [Entitic mass] 30.4 pg Normal 26.0-34.0 [facility] Comment on above: Order Comment: Speci men Type: BLOOD SPECIMENOrdering Facility: [facility] Address: [address] [place] [address] Performed By: #### 5 7021-8 ####[facility] STEPHANIEWNCLIA [id number] [place] [address] [place] MCHC (RBC) [Mass/Vol] 34.5 g/dL Normal 30.5-36.0 [facility] Comment on above: Order Comment: Speci men Type: BLOOD SPECIMENOrdering Facility: [facility] Address: [address] [place] [address] Performed By: #### 5 7021-8 ####[facility]OSPITALNCLIA [id number] [place] [address] [place] MCV (RBC) [Entitic vol] 88.0 fL Normal 80.0-100.0 [facility] Comment on above: Order Comment: Speci men Type: BLOOD SPECIMENOrdering Facility: [facility] Address: [address] [place] [address] Performed By: #### 5 7021-8 ####[facility]OSPITALNCLIA [id number] [place] [address] [place] Monocytes (Bld) [#/Vol] 0.87 10*3/uL High <0.87 [facility] Comment on above: Order Comment: Speci men Type: BLOOD SPECIMENOrdering Facility: [facility] Address: [address] [place] [address] Performed By: #### 5 7021-8 ####[facility] HOSPITALNCLIA [id number] [address] [place] Monocytes/100 WBC (Bld) 8.4 % Normal [facility] Comment on above: Order Comment: Speci men Type: BLOOD SPECIMENOrdering Facility: [facility] Address: [address] [place] [address] Performed By: #### 5 7021-8 ####[facility] MILLTOWNCLIA [id number] [place] [address] [place] Neutrophils (Bld) [#/Vol] 6.77 10*3/uL Normal 1.45-7.50 [facility] Comment on above: Order Comment: Speci men Type: BLOOD SPECIMENOrdering Facility: [facility] Address: [address] [place] [address] Performed By: #### 5 7021-8 ####[facility] CENTERWNCLIA [id number] [place] [address] [place] Neutrophils/100 WBC (Bld) 65.2 % Normal [facility] Comment on above: Order Comment: Speci men Type: BLOOD SPECIMENOrdering Facility: [facility] Address: [address] [place] [address] Performed By: #### 5 7021-8 ####[facility] CLINICLIA [id number] [place] [address] [place] Nucleated RBC (Bld) [#/Vol] 10*3/uL Normal <0.01 [facility] Comment on above: Order Comment: Speci men Type: BLOOD SPECIMENOrdering Facility: [facility] Address: [address] [place] [address] Performed By: #### 5 7021-8 ####[facility] MILLWNCLIA [id number] [place] [address] [place] Nucleated RBC/100 WBC (Bld) [Ratio] 0.0 /100 WBC Normal [facility] Comment on above: Order Comment: Speci men Type: BLOOD SPECIMENOrdering Facility: [facility] Address: [address] [place] [address] Performed By: #### 5 7021-8 ####[facility] MILLWNCLIA [id number] [place] [address] [place] Platelet mean volume (Bld) [Entitic vol] 9.7 fL Normal 9.0-12.7 [facility] Comment on above: Order Comment: Speci men Type: BLOOD SPECIMENOrdering Facility: [facility] Address: [address] [place] [address] Performed By: #### 5 7021-8 ####[facility] CLINICJAIMIEA [id number] [place] [address] [place] Platelets (Bld) [#/Vol] 226 10*3/uL Normal 150-400 [facility] Comment on above: Order Comment: Speci men Type: BLOOD SPECIMENOrdering Facility: [facility] Address: [address] [place] [address] Performed By: #### 5 7021-8 ####[facility] HOSPITALNCAniceto [id number] [place] [address] [place] RBC (Bld) [#/Vol] 5.66 10*6/uL Normal 4.20-6.00 [facility] Comment on above: Order Comment: Speci men Type: BLOOD SPECIMENOrdering Facility: [facility] Address: [address] [place] [address] Performed By: #### 5 7021-8 ####[facility] HOSPITALVALERIANOA [id number] [place] [address] [place] WBC (Bld) [#/Vol] 10.38 10*3/uL Normal 3.70-11.00 [facility] Comment on above: Order Comment: Speci men Type: BLOOD SPECIMENOrdering Facility: [facility] Address: [address] [place] [address] Performed By: #### 5 7021-8 ####[facility] HOSPITALNCLIA [id number] [place] [address] [place] [address] [address] CHEST WO IVCONon 10-14-[address] CHEST WO IVCON * * *Final Report* * * DATE OF EXAM: Dec 05 2023 11:51AM [facility] 0541 - CT CHEST WO IVCON [...] Recommendation: Consult to [facility] - [id number] Time Frame: at the discretion of the clinical team. Comments: Follow-up for this incidentally detected lung nodule with PET/CT or Biopsy within 4 weeks, or Chest CT exam in 3 months is recommended. --END OF FINDING-- General Education Professor: BLANK Transcribe Date/Time: Dec 12 2023 10:45A Dictated by : ARLIN MILAN MD This examination was interpreted and the report reviewed and electronically signed by: ARLIN MILAN MD on Dec 12 2023 10:59AM EST [id number] ACTIONABLE Invalid Interpretation Code [facility] Iron and Iron binding capaci ty panelon 12-05-2023 Iron [Mass/Vol] 86 ug/dL Normal 41-186 [facility] Comment on above: Order Comment: Speci men Type: BLOOD SPECIMENOrdering Facility: [facility] Address: [address] [place] [address] Performed By: #### 5 0190-8 ####[facility] LABIA [id number] [place] [address] [place] Iron binding capacity [Mass/Vol] 359 ug/dL Normal 232-386 [facility] Comment on above: Order Comment: Speci men Type: BLOOD SPECIMENOrdering Facility: [facility] Address: [address] [place] [address] Performed By: #### 5 0190-8 ####[facility] LABIA [id number] [place] [id number] [place] Iron/TIBC [Molar ratio] 24.0 % Normal 15.0-57.0 [facility] Comment on above: Order Comment: Speci men Type: BLOOD SPECIMENOrdering Facility: [facility] Address: [address] [place] [address] Performed By: #### 5 0190-8 ####[facility] LABIA [id number] [place] [id number] [place] No Panel Informationon 12-04 [facility] [address], [place] [address] Test Date: 2023-12-05 Pat Name: TAZ FOSTER Department: Room: Gender: Male Data Management Consultant: : 1935 Requested By: Order Number: [id number] Reading MD: Yamile Bowens MD Interpretive Statements [...] 15:57:36 EDT by Yamile Bowens MD ID: [id number] Name: TAZ FOSTER Race: White Ht: 71.81 in Wt: 202.00 lbs Age: 88 Gender: Male : 1935 Dx: Wheezing Smoking Hx: Non-smoker Doctor: ELISA GARCIA Test Date: 12/05/2023 Site: Tech: Lavern Blakely PRE-BRONCH POST-BRONCH Pre LLN Pred ULN [...] 0.48 -3 FIVC (L) 3.02 2.88 -4 TVA80-12 (L/sec) 1.43 0.63 1.86 3.74 76 1.74 [...] for lung volumes met. PULMONARY FUNCTION LAB [facility] SPIROMETRY - BASELINE AND PO [facility] 12-05-2023 ERV BOX (L) 0.62 L [facility] ERV PREDICTED (L) 1.30 L/S [facility] FEF25% POST (L/S) 5.94 L/S [facility] FEF25% PRE (L/S) 5.73 L/S [facility] VQW07-86% LLN (L/S) 0.63 L/S [facility] FTB84-79% POST (L/S) 1.74 L/S [facility] [place] [facility] OLX83-40% PRE (L/S) 1.43 L/S [facility] BJN61-17% PREDICTED (L/S) 1.86 L/S [facility] FEF75% LLN (L/S) 0.14 L/S [facility] FEF75% POST (L/S) 0.58 L/S [facility] FEF75% PRE (L/S0 0.47 L/S [facility] FEF75% PREDICTED (L/S) 0.43 L/S [facility] FEF75% ULN (L/S) 1.34 L/S [facility] FET POST (S) 10.56 S [facility] FET PRE (S) 9.39 S [facility] FEV1 LLN (L) 1.99 L [facility] FEV1 PRE (L) 2.33 L [facility] FEV1 PREDICTED (L) 2.78 L [facility] FEV1 ULN (L) 3.53 L [facility] FEV1/FVC LLN (%) 59 % [facility] FEV1/FVC POST (%) 71 % [facility] FEV1/FVC PRE (%) 70 % [facility] FEV1/FVC PREDICTED (%) 74 % [facility] FEV1_POST (L) 2.44 L [facility] FRC Box (L) 3.71 L [facility] FVC LLN (L) 2.85 L [facility] FVC POST (L) 3.44 L [facility] FVC PRE (L) 3.34 L [facility] FVC PREDICTED (L) 3.89 L [facility] FVC ULN (L) 4.96 L [facility] IC BOX (L) 2.43 L [facility] IC PREDICTED (L) 2.60 L/S [facility] PEF LLN (L/S) 4.18 L/S [facility] PEF POST (L/S) 6.41 L/S [facility] PEF PRE (L/S) 5.95 L/S [facility] PEF ULN (L/S) 9.06 L/S [facility] RV Box (L) 3.09 L [facility] RV Box PREDICTED (L) 2.91 L [facility] [place] [facility] RV/TLC Box (%) 50 % [facility] RV/TLC Box PREDICTED (%) 41 % [facility] SVC LLN (L) 2.85 L/S [facility] SVC PREDICTED (L) 3.89 L/S [facility] SVC ULN (L) 4.96 L/S [facility] TLC Box (L) 6.16 L [facility] TLC Box PREDICTED (L) 7.45 L [facility] VC (L) BOX 3.28 L [facility] CNOVon 11-29-2023 CNOV Office Visit (FAMPWS ) TAZ FOSTER ([id number]) 1935 M Date Time Provider Department 11/29/23 7:00 AM ELISA GARCIA During your visit today, we recorded the following information about you: Pulse Respiration Blood pressure Weight 78/minute 16/minute 126/78 92.1 kg Elisa Garcia APRN.CNP 11/29/2023 12:42 PM Signed Taz Foster is a 88 year old male [...] history review Reviewed and updated problem list, medical/surgical/fami ly/social history, medications, and allergies. Opioid use review [...] BMI 27.53 kg/m? Vision Screening: Follows with optometry/ophthalmolo gy Assessment/Plan Medicare annual wellness visit, subsequent (Z00.00) - Counseled on healthy diet and regular exercise - Fall avoidance information provided - Personalized prevention plan provided Elisa Garcia APRN.CNP 11/29/2023 12:42 PM Signed Chief Complaint Patient presents with: Medicare Wellness Exam HPI Taz Foster is a 88 year old male [...] his doctor during the winter months in [place]. States they always say everything is fine. [...] GERD (gastroesophageal reflux disease) Melanoma (HCC) 1991 [place] [facility] Persistent atrial fibrillation (HCC) 10/11/2019 Admitted 09/05/2019 [facility]. Followed by [facility]. Previous Surgical History PAST SURGICAL [...] EGD - BALLOON DILATION, GUIDE esophageal dilatation. ESOPHAGOGASTRODUODENO SCOPY TRANSORAL DIAGNOSTIC 08/23/2012 EGD ESOPHAGOGASTRODUODENO SCOPY TRANSORAL DIAGNOSTIC 07/11/2013 EGD OPEN REPAIR OF ROTATOR CUFF ACUTE 2004 B, 2012 L Rotator cuff repair - bilateral [facility] PAST SURGICAL HISTORY OF plastic surgery for (more content not included)... Normal [facility] XR HIP BILATERAL 5V PEL/AP/L AT EACH HIPon 11-24-2023 IMPRESSION: No acute abnormality General Education Professor: BLANK Transcribe Date/Time: Nov 24 2023 6:25P Dictated by : MARIANA CARABALLO MD This examination was interpreted and the report reviewed and electronically signed by: MARIANA CARABALLO MD on Nov 24 2023 6:25PM EST [facility] * * *Final Report* * * DATE OF EXAM: Nov 23 2023 7:45AM MDO 5353 - XR HIP KELLEY 5V PEL+ [...] Sacroiliac joints and symphysis pubis are maintained. [facility] Provider, Edgardo Diamond [facility] - 11/24/2023 * * *Final Report* * * DATE OF EXAM: Nov 23 2023 7:45AM MDO 5353 - XR HIP KELLEY 5V PEL+ [...] are maintained. IMPRESSION IMPRESSION: No acute abnormality General Education Professor: BLANK Transcribe Date/Time: Nov 24 2023 6:25P Dictated by : MARIANA CARABALLO MD This examination was interpreted and the report reviewed and electronically signed by: MARIANA CARABALLO MD on Nov 24 2023 6:25PM EST [facility] XR Knee - right 4 Viewson IMPRESSION: Interval TKA. Acute abnormality General Education Professor: PSCB Transcribe Date/Time: Nov 24 2023 6:24P Dictated by : MARIANA CARABALLO MD This examination was interpreted and the report reviewed and electronically signed by: MARIANA CARABALLO MD on Nov 24 2023 6:25PM EST [facility] * * *Final Report* * * [...] No joint effusion or soft tissue swelling. [facility] Provider, Edgardo Diamond [facility] - 11/24/2023 * * *Final Report* [...] swelling. IMPRESSION IMPRESSION: Interval TKA. Acute abnormality General Education Professor: [facility] Transcribe Date/Time: Nov 24 2023 6:24P Dictated by : MARIANA CARABALLO MD This examination was interpreted and the report reviewed and electronically signed by: MARIANA CARABALLO MD on Nov 24 2023 6:25PM EST [facility] XR Knee - right 4 ViewsOrder ed By: [facility] Provider on 11-24-2023 [facility] XR Lumbar spine AP and Later margie 11-24-2023 IMPRESSION: Degenerative changes General Education Professor: PSCB Transcribe Date/Time: Nov 24 2023 9:37P Dictated by : MARIANA CARABALLO MD This examination was interpreted and the report reviewed and electronically signed by: MARIANA CARABALLO MD on Nov 24 2023 9:38PM [facility] * * *Final Report* * [...] SI joint. Partially visualized bilateral hip arthroplasties. [facility] Provider, Edgardo clay [place] - 11/24/2023 * * *Final Report* * [...] bilateral hip arthroplasties. IMPRESSION IMPRESSION: Degenerative changes General Education Professor: PSCB Transcribe Date/Time: Nov 24 2023 9:37P Dictated by : MARIANA CARABALLO MD This examination was interpreted and the report reviewed and electronically signed by: MARIANA CARABALLO MD on Nov 24 2023 9:38PM [facility] CNOVon 11-23-2023 CNOV Office Visit (ORMDNA ) TAZ FOSTER ([id number]) 1935 M Date Time Provider Department 11/23/23 [...] severe depression Bone Density Risk Screen Taz Foster is at risk for bone loss [...] SUBJECTIVE CHIEF COMPLAINT: Hip Pain HPI: Taz Foster is a 88 year old patient . Taz Foster has had progressive problems with the hip(s) multiple times a day over the past 2 year(s) interfering with activities which include rising from a sitting position, standing for prolonged per (more content not included)... Normal [facility] No Panel Informationon 11-22 Radiology Study observation (narrative) [facility] XR HIP KELLEY 5V PEL+ AP/LAT EA [...] pubis are maintained. IMPRESSION: No acute abnormality General Education Professor: PSCB Transcribe Date/Time: Nov 24 2023 6:25P Dictated by : MARIANA CARABALLO MD This examination was interpreted and the report reviewed and electronically signed by: MARIANA CARABALLO MD on Nov 24 2023 6:25PM EST [id number] N [facility] XR KNEE 4V AP/PA BOTH+LAT/ME R RTon [...] tissue swelling. IMPRESSION: Interval TKA. Acute abnormality General Education Professor: [facility] Transcribe Date/Time: Nov 24 2023 6:24P Dictated by : MARIANA CARABALLO MD This examination was interpreted and the report reviewed and electronically signed by: MARIANA CARABALLO MD on Nov 24 2023 6:25PM EST [id number] N [facility] XR LUMBAR 2V AP/LATon 2023 XR LUMBAR [...] visualized bilateral hip arthroplasties. IMPRESSION: Degenerative changes General Education Professor: [facility] Transcribe Date/Time: Nov 24 2023 9:37P Dictated by : MARIANA CARABALLO MD This examination was interpreted and the report reviewed and electronically signed by: MARIANA CARABALLO MD on Nov 24 2023 9:38PM EST [id number] N [facility] XR Lumbar spine AP and Later margie 11-23-2023 Radiology Study observation (narrative) [facility] (AKURFL ) TAZ FOSTER ([id number]) 1935 M Date Time Provider Department 06/24/23 8:30 AM AJ ISSA During your visit today, we recorded the following information about you: Pulse Height 72/minute 1.829 m Aj Issa MD 06/27/2023 8:06 AM Signed ESTABLISHED PATIENT OFFICE VISIT PATIENT INFO: Taz Foster 88 year old HPI 06/24/2023 CC: [...] nurse on October 26 to learn intermittent catheterization/revie wed again and plans to do it daily [...] hung up He is going back to [place] in a few weeks and he knows to reconnect with urology there if he has problems Could always consult with Dr. Summers or Dr. Yamile Trujillo at [facility] who are stricture specialists and he [...] shortness of breath We will schedule at [facility] Bladder scan/postvoid residual-80 cc approximate 06/29/2022 CC: marcy Saw me last noted below and had laser TURP Did well afterwards but then having more trouble so underwent TURP in December 2021 in [place] and did well but over the last month slower stream and nocturia 3-4 and moreUrgency Residual urine 79 cc Not on alpha blockers and so we will add Uroxatro (more content not included)... Normal [facility] UA DIP, URINE (POC)on 2023 BILIRUBIN UA (POCT) Negative Negative [facility] CLARITY UA (POCT) Clear [facility] COLOR UA (POCT) Yellow [facility] GLUCOSE UA (POCT) Negative Negative mg/dL [facility] Hemoglobin Ql (U) Large Abnormal Negative [facility] Interpretation and review of laboratory results Abnormal [facility] KETONE UA (POCT) Negative Negative mg/dL [facility] LEUKOCYTES UA (POCT) Small Abnormal Negative [facility] NITRITE UA (POCT) Negative Negative [facility] PH UA (POCT) 6.0 4.5 - 8.0 [facility] Protein Ql (U) Negative Negative mg/dL [facility] SPECIFIC GRAVITY UA (POCT) 1.025 1.005 - 1.030 [facility] UROBILINOGEN UA (POCT) 1.0 Alejandra l E.U./dL [facility] [address] [place] [address], [address] [place] [address] POINT OF CARE [facility] UA DIP, URINE (POC)on 2022 BILIRUBIN UA (POCT) Negative Negative [facility] CLARITY UA (POCT) Clear [facility] COLOR UA (POCT) Yellow [facility] GLUCOSE UA (POCT) Negative Negative mg/dL [facility] Hemoglobin Ql (U) Negative [facility] KETONE UA (POCT) Negative Negative mg/dL [facility] LEUKOCYTES UA (POCT) Negative Negative [facility] NITRITE UA (POCT) Negative Negative [facility] PH UA (POCT) 6.5 4.5 - 8.0 [facility] Protein Ql (U) Negative Negative mg[facility] SPECIFIC GRAVITY UA (POCT) 1.020 1.005 - 1.030 [facility] UROBILINOGEN UA (POCT) 0.2 E.U./dL Alejandra l E.U./dL [facility] UA DIP, URINE (POC)on 2022 BILIRUBIN UA (POCT) Negative Negative Kadeem [facility] CLARITY UA (POCT) Clear [facility] COLOR UA (POCT) Yellow [facility] GLUCOSE UA (POCT) Negative Negative mg/dL [facility] Hemoglobin Ql (U) Trace-intact Abnormal Negative [facility] KETONE UA (POCT) Negative Negative mg/dL [facility] LEUKOCYTES UA (POCT) Negative Negative [facility] NITRITE UA (POCT) Negative Negative [facility] PH UA (POCT) 6.5 4.5 - 8.0 [facility] Protein Ql (U) Trace Abnormal Negative mg/dL [facility] SPECIFIC GRAVITY UA (POCT) >=1.030 1.005 - 1.030 [facility] UROBILINOGEN UA (POCT) 1.0 E.U./dL Alejandra l E.U./dL [facility] UA DIP, URINE (POC)on 2022 BILIRUBIN UA (POCT) Negative Negative [facility] CLARITY UA (POCT) Clear [facility] COLOR UA (POCT) Yellow [facility] GLUCOSE UA (POCT) Negative Negative mg/dL [facility] HEMOGLOBIN/BLOOD UA (POCT) Negative Negative [facility] KETONE UA (POCT) Negative Negative mg/dL [facility] LEUKOCYTES UA (POCT) Trace Abnormal Negative [facility] NITRITE UA (POCT) Negative Negative [facility] PH UA (POCT) 5.5 4.5 - 8.0 [facility] Protein Ql (U) Negative Negative mg/dL [facility] SPECIFIC GRAVITY UA (POCT) 1.020 1.005 - 1.030 [facility] UROBILINOGEN UA (POCT) 0.2 E.U./dL Alejandra l E.U./dL [facility] No Panel Informationon 10-13 Radiology Study observation (narrative) [facility] XR Chest PA and Lateralon IMPRESSION: Linear indeterminate density at both lung bases. Likely atelectasis or fibrosis. No new significant collapse or consolidation General Education Professor: PSCB Transcribe Date/Time: Oct 13 2020 10:37A Dictated by : HENRY PEÑA MD This examination was interpreted and the report reviewed and electronically signed by: HENRY PEÑA MD on Oct 13 2020 10:40AM [facility] DIVISION OF RADIOLOGY * * *Final Report* [...] soft tissues: Unremarkable. DIVISION OF RADIOLOGY Provider, [facility] - 10/13/2020 * * *Final [...] fibrosis. No new significant collapse or consolidation General Education Professor: BLANK Transcribe Date/Time: Oct 13 2020 10:37A Dictated by : HENRY PEÑA MD This examination was interpreted and the report reviewed and electronically signed by: HENRY PEÑA MD on Oct 13 2020 10:40AM [facility] XR Knee - right 4 Viewson IMPRESSION: Degenerative changes as described. General Education Professor: PSCB Transcribe Date/Time: Oct 13 2020 10:38A Dictated by : JAVAN LOUIS MD This examination was interpreted and the report reviewed and electronically signed by: JAVAN LOUIS MD on Oct 13 2020 10:39AM [facility] DIVISION OF RADIOLOGY * * *Final Report* [...] joint space narrowing. DIVISION OF RADIOLOGY Provider, [facility] - 10/13/2020 * * *Final [...] narrowing. IMPRESSION IMPRESSION: Degenerative changes as described. General Education Professor: BLANK Transcribe Date/Time: Oct 13 2020 10:38A Dictated by : JAVAN LOUIS MD This examination was interpreted and the report reviewed and electronically signed by: JAVAN LOUIS MD on Oct 13 2020 10:39AM EST [facility] XR Knee - right 4 ViewsOrder ed By: [facility] Provider on 10-13-2020 [facility] US MSR POST-VOID RESID URINE [facility] Vital Signs Date Time Vital Sign Value Performing Clinician Facility 11-06-2024 12:46-0400 Heart rate 69 /min Dr. Dipak Aguilar DO Work Phone: 8(000)338-290596 [place] [address] 11-06-2024 12:46-0400 Respiratory rate 18 /min Dr. Dipak Aguilar DO Work Phone: 6(942)508-735796 [place] [address] 11-06-2024 12:25-0400 Diastolic blood pressure 67 mm[Hg] Dr. Dipak Aguilar DO Work Phone: 7(595)347-226696 [place] [address] 11-06-2024 12:25-0400 Inhaled oxygen flow rate 2 L/min Dr. Dipak Aguilar DO Work Phone: 5(592)099-326396 [place] [address] 11-06-2024 12:25-0400 SaO2% (BldA) [Mass fraction] 93 % Dr. Dipak Aguilar DO Work Phone: 1(555)046-801096 [place] [address] 11-06-2024 12:25-0400 Systolic blood pressure 123 mm[Hg] Dr. Dipak Aguilar DO Work Phone: 9(514)261-849696 [place] [address] 11-06-2024 08:47-0400 Body temperature 97.8 [degF] Dr. Dipak Aguilar DO Work Phone: 9(806)793-454096 [place] [address] 11-05-2024 05:18-0400 Body mass index (BMI) [Ratio] 29.4 kg/m2 Dr. Dipak Aguilar DO Work Phone: 7(674)664-297096 [place] [address] 11-05-2024 05:18-0400 Body weight 98.[address] Dipak Aguilar DO Work Phone: 0(768)217-836096 [place] [address] 11-03-2024 12:00-0400 Inhaled oxygen concentration 35 % Dr. Dipak Aguilar DO Work Phone: 9(665)008-122696 [place] [address] 11-01-2024 11:17-0400 Body height 182.[address] Dipak Aguilar DO Work Phone: 7(904)565-722275 [place] [address] 10-26-2024 22:59-0400 Body temperature 99.1 [degF] Dr. Dipak Aguilar DO Work Phone: 7(015)123-164496 [place] [address] 10-26-2024 22:59-0400 Diastolic blood pressure 74 mm[Hg] Dr. Dipak Aguilar DO Work Phone: 9(311)588-583496 [place] [address] 10-26-2024 22:59-0400 Heart rate 93 /min Dr. Dipak Aguilar DO Work Phone: 5(033)541-527996 [place] [address] 10-26-2024 22:59-0400 Inhaled oxygen flow rate 2 L/min Dr. Dipak Aguilar DO Work Phone: 9(946)702-425996 [place] [address] 10-26-2024 22:59-0400 Respiratory rate 23 /min Dr. Dipak Aguilar DO Work Phone: 6(133)739-667396 [place] [address] 10-26-2024 22:59-0400 SaO2% (BldA) [Mass fraction] 93 % Dr. Dipak Aguilar DO Work Phone: 4(579)090-359996 [place] [address] 10-26-2024 22:59-0400 Systolic blood pressure 111 mm[Hg] Dr. Dipak Aguilar DO Work Phone: 8(005)463-154896 [place] [address] 10-26-2024 16:40-0400 Body height 182.[address] Dipak Aguilar DO Work Phone: 6(525)330-451196 [place] [address] 10-26-2024 16:40-0400 Body mass index (BMI) [Ratio] 26.9 kg/m2 Dr. Dipak Aguilar DO Work Phone: 8(832)462-802796 [place] [address] 10-26-2024 16:40-0400 Body weight 90.[address] Dipak Aguilar DO Work Phone: 1(388)125-800096 [place] [address] 10-14-2024 08:45-0400 Body temperature 97.6 [degF] Dr. Dipak Aguilar DO Work Phone: 7(914)835-049396 [place] [address] 10-14-2024 08:45-0400 Diastolic blood pressure 87 mm[Hg] Dr. Dipak Aguilar DO Work Phone: [facility] 10-14-2024 08:45-0400 Heart rate 71 /min Dr. Dipak Aguilar DO Work Phone: [facility] 10-14-2024 08:45-0400 Respiratory rate 17 /min Dr. Dipak Aguilar DO Work Phone: 7(581)203-854596 [place] [address] 10-14-2024 08:45-0400 SaO2% (BldA) [Mass fraction] 97 % Dr. Dipak Aguilar DO Work Phone: 9(943)978-601296 [place] [address] 10-14-2024 08:45-0400 Systolic blood pressure 133 mm[Hg] Dr. Dipak Aguilar DO Work Phone: 6(215)930-382696 [place] [address] 10-14-2024 07:29-0400 Body height 182.[address] Dipak Aguilar DO Work Phone: 6(037)691-143196 [place] [address] 10-14-2024 07:29-0400 Body mass index (BMI) [Ratio] 27.1 kg/m2 Dr. Dipak Aguilar DO Work Phone: 2(398)417-858896 [place] [address] 10-14-2024 07:29-0400 Body weight 90.[address] Dipak Aguilar DO Work Phone: 0(473)328-484796 [place] [address] 09-21-2024 08:28-0400 Body mass index (BMI) [Ratio] 27.89 kg/m2 Vikki Worley APRN.[employer] Work Phone: [facility] 09-21-2024 08:28-0400 Body weight 90.72 kg Vikki Worley MEDICAL RECORDS DIRECTOR.[employer] Work Phone: [facility] 09-21-2024 08:28-0400 Diastolic blood pressure 70 mm[Hg] Vikki Worley MEDICAL RECORDS DIRECTOR.[employer] Work Phone: [facility] 09-21-2024 08:28-0400 Heart rate 101 /min Vikki Worley MEDICAL RECORDS DIRECTOR.[employer] Work Phone: [facility] 09-21-2024 08:28-0400 Respiratory rate 16 /min Vikki Worley MEDICAL RECORDS DIRECTOR.[employer] Work Phone: [facility] 09-21-2024 08:28-0400 Systolic blood pressure 122 mm[Hg] Vikki Worley MEDICAL RECORDS DIRECTOR.[employer] Work Phone: [facility] 09-17-2024 08:21-0400 Body mass index (BMI) [Ratio] 27.95 kg/m2 Vikki Worley MEDICAL RECORDS DIRECTOR.[employer] Work Phone: [facility] 09-17-2024 08:21-0400 Body weight 90.9 kg Vikki Worley MEDICAL RECORDS DIRECTOR.[employer] Work Phone: [facility] 09-17-2024 08:21-0400 Diastolic blood pressure 70 mm[Hg] Vikki Worley MEDICAL RECORDS DIRECTOR.[employer] Work Phone: [facility] 09-17-2024 08:21-0400 Heart rate 101 /min Vikki Worley MEDICAL RECORDS DIRECTOR.[employer] Work Phone: [facility] 09-17-2024 08:21-0400 Respiratory rate 16 /min Vikki Worley MEDICAL RECORDS DIRECTOR.[employer] Work Phone: [facility] 09-17-2024 08:21-0400 SaO2% (BldA) [Mass fraction] 98 % Vikki Worley MEDICAL RECORDS DIRECTOR.[employer] Work Phone: [facility] 09-17-2024 08:21-0400 Systolic blood pressure 122 mm[Hg] Vikki Worley MEDICAL RECORDS DIRECTOR.[employer] Work Phone: [facility] 09-11-2024 12:56-0400 Body temperature 97.4 [degF] Dr. Dipak Aguilar DO Work Phone: [facility] 09-11-2024 12:56-0400 Diastolic blood pressure 123 mm[Hg] Dr. Dipak Aguilar DO Work Phone: [facility] 09-11-2024 12:56-0400 Heart rate 78 /min Dr. Dipak Aguilar DO Work Phone: [facility] 09-11-2024 12:56-0400 Respiratory rate 16 /min Dr. Dipak Aguilar DO Work Phone: [facility] 09-11-2024 12:56-0400 SaO2% (BldA) [Mass fraction] 100 % Dr. Dipak Aguilar DO Work Phone: [facility] 09-11-2024 12:56-0400 Systolic blood pressure 190 mm[Hg] Dr. Dipak Aguilar DO Work Phone: [facility] 09-11-2024 10:13-0400 Body height 185.[address] Dipak Aguilar DO Work Phone: 7(344)260-757475 [place] [address] 09-11-2024 10:13-0400 Body mass index (BMI) [Ratio] 26.2 kg/m2 Dr. Dipak Aguilar DO Work Phone: 9(009)708-909475 [place] [address] 09-11-2024 10:13-0400 Body weight 90.[address] Dipak Aguilar DO Work Phone: [facility] 09-10-2024 11:58-0400 Diastolic blood pressure 88 mm[Hg] Elaine Lorenzo Jr., MD Work Phone: [facility] Comment on above: manual recheck 09-10-2024 11:58-0400 Systolic blood pressure 136 mm[Hg] Elaine Lorenzo Jr., MD Work Phone: [facility] Comment on above: manual recheck 09-10-2024 11:19-0400 Body mass index (BMI) [Ratio] 27.48 kg/m2 Elaine Lorenzo Jr., MD Work Phone: [facility] 09-10-2024 11:19-0400 Body weight 89.36 kg Elaine Lorenzo Jr., MD Work Phone: [facility] 09-10-2024 11:19-0400 Heart rate 83 /min Elaine Lorenzo Jr., MD Work Phone: [facility] 09-10-2024 11:19-0400 Respiratory rate 16 /min Elaine Lorenzo Jr., MD Work Phone: [facility] 09-10-2024 11:19-0400 SaO2% (BldA) [Mass fraction] 97 % Elaine Lorenzo Jr., MD Work Phone: [facility] 09-05-2024 11:55-0400 Body mass index (BMI) [Ratio] 27.62 kg/m2 Dipak Aguilar DO Work Phone: [facility] 09-05-2024 11:55-0400 Body temperature 97 [degF] Dipak Aguilar DO Work Phone: [facility] 09-05-2024 11:55-0400 Body weight 89.81 kg Dipak Aguilar DO Work Phone: [facility] 09-05-2024 11:55-0400 Diastolic blood pressure 82 mm[Hg] Dipak Aguilar DO Work Phone: [facility] 09-05-2024 11:55-0400 Heart rate 80 /min Dipak Aguilar DO Work Phone: [facility] 09-05-2024 11:55-0400 Respiratory rate 20 /min Dipak Aguilar DO Work Phone: [facility] 09-05-2024 11:55-0400 Systolic blood pressure 128 mm[Hg] Dipak Aguilar DO Work Phone: [facility] 07-02-2024 15:27-0400 Body height 180.3 cm Analisa Nicole MD Work Phone: [facility] 07-02-2024 15:27-0400 Body mass index (BMI) [Ratio] 28.4 kg/m2 Analisa Nicole MD Work Phone: [facility] 07-02-2024 15:27-0400 Body weight 92.35 kg Analisa Nicole MD Work Phone: [facility] 07-02-2024 15:27-0400 Diastolic blood pressure 70 mm[Hg] Analisa Nicole MD Work Phone: [facility] 07-02-2024 15:27-0400 Heart rate 90 /min Analisa Nicole MD Work Phone: [facility] 07-02-2024 15:27-0400 Respiratory rate 12 /min Analisa Nicole MD Work Phone: [facility] 07-02-2024 15:27-0400 SaO2% (BldA) [Mass fraction] 96 % Analisa Nicole MD Work Phone: [facility] 07-02-2024 15:27-0400 Systolic blood pressure 128 mm[Hg] Analisa Nicole MD Work Phone: [facility] 06-28-2024 13:31-0400 Body mass index (BMI) [Ratio] 28.19 kg/m2 Elisa Jose MEDICAL RECORDS DIRECTOR.[employer] Work Phone: [facility] 06-28-2024 13:31-0400 Body weight 93.8 kg Elisa Jose MEDICAL RECORDS DIRECTOR.[employer] Work Phone: [facility] 06-28-2024 13:31-0400 Diastolic blood pressure 88 mm[Hg] Elisa Jose MEDICAL RECORDS DIRECTOR.[employer] Work Phone: [facility] 06-28-2024 13:31-0400 Heart rate 76 /min Elisa Jose MEDICAL RECORDS DIRECTOR.[employer] Work Phone: [facility] 06-28-2024 13:31-0400 SaO2% (BldA) [Mass fraction] 95 % Elisa Jose MEDICAL RECORDS DIRECTOR.[employer] Work Phone: [facility] 06-28-2024 13:31-0400 Systolic blood pressure 144 mm[Hg] Elisa Jose MEDICAL RECORDS DIRECTOR.[employer] Work Phone: [facility] 05-30-2024 14:41-0400 Body mass index (BMI) [Ratio] 27.68 kg/m2 Elisa Jose MEDICAL RECORDS DIRECTOR.[employer] Work Phone: [facility] 05-30-2024 14:41-0400 Body weight 92.08 kg Elisa Jose MEDICAL RECORDS DIRECTOR.[employer] Work Phone: [facility] 05-30-2024 14:41-0400 Diastolic blood pressure 78 mm[Hg] Elisa Jose MEDICAL RECORDS DIRECTOR.[employer] Work Phone: [facility] 05-30-2024 14:41-0400 Heart rate 78 /min Elisa Jose MEDICAL RECORDS DIRECTOR.[employer] Work Phone: [facility] 05-30-2024 14:41-0400 SaO2% (BldA) [Mass fraction] 94 % Elisa Jose MEDICAL RECORDS DIRECTOR.[employer] Work Phone: [facility] 05-30-2024 14:41-0400 Systolic blood pressure 110 mm[Hg] Elisa Jose MEDICAL RECORDS DIRECTOR.[employer] Work Phone: [facility] 05-16-2024 13:15-0400 Body mass index (BMI) [Ratio] 28.96 kg/m2 Radha Berman MEDICAL RECORDS DIRECTOR.[employer] Work Phone: [facility] 05-16-2024 13:15-0400 Body weight 96.34 kg Radha Berman MEDICAL RECORDS DIRECTOR.[employer] Work Phone: [facility] 05-16-2024 13:15-0400 Diastolic blood pressure 68 mm[Hg] Radha Berman MEDICAL RECORDS DIRECTOR.[employer] Work Phone: [facility] 05-16-2024 13:15-0400 Heart rate 87 /min Radha Berman MEDICAL RECORDS DIRECTOR.[employer] Work Phone: [facility] 05-16-2024 13:15-0400 Respiratory rate 16 /min Radha Berman MEDICAL RECORDS DIRECTOR.[employer] Work Phone: [facility] 05-16-2024 13:15-0400 SaO2% (BldA) [Mass fraction] 97 % Radha Berman MEDICAL RECORDS DIRECTOR.[employer] Work Phone: [facility] 05-16-2024 13:15-0400 Systolic blood pressure 130 mm[Hg] Radha Berman MEDICAL RECORDS DIRECTOR.[employer] Work Phone: [facility] 12-05-2023 13:31-0400 Body height 182.4 cm Pulm Wstr Work Phone: [facility] 12-05-2023 13:31-0400 Body mass index (BMI) [Ratio] 27.54 kg/m2 Pulm Wstr Work Phone: [facility] 12-05-2023 13:31-0400 Body weight 91.63 kg Pulm Wstr Work Phone: [facility] 12-05-2023 13:31-0400 Heart rate 87 /min Pulm Wstr Work Phone: [facility] 12-05-2023 13:31-0400 Respiratory rate 16 /min Pulm Wstr Work Phone: [facility] 12-05-2023 13:31-0400 SaO2% (BldA) [Mass fraction] 97 % Pulm Wstr Work Phone: [facility] 11-29-2023 07:05-0400 Body mass index (BMI) [Ratio] 27.53 kg/m2 Elisa Jose MEDICAL RECORDS DIRECTOR.[employer] Work Phone: [facility] 11-29-2023 07:05-0400 Body weight 92.08 kg Elisa Jose MEDICAL RECORDS DIRECTOR.[employer] Work Phone: [facility] 11-29-2023 07:05-0400 Diastolic blood pressure 78 mm[Hg] Elisa Jose MEDICAL RECORDS DIRECTOR.[employer] Work Phone: [facility] 11-29-2023 07:05-0400 Heart rate 78 /min Elisa Jose MEDICAL RECORDS DIRECTOR.[employer] Work Phone: [facility] 11-29-2023 07:05-0400 Respiratory rate 16 /min Elisa Jose MEDICAL RECORDS DIRECTOR.[employer] Work Phone: [facility] 11-29-2023 07:05-0400 SaO2% (BldA) [Mass fraction] 98 % Elisa Jose MEDICAL RECORDS DIRECTOR.[employer] Work Phone: [facility] 11-29-2023 07:05-0400 Systolic blood pressure 126 mm[Hg] Elisa Garcia APRN.[employer] Work Phone: [facility] 09-12-2023 10:16-0400 Body height 182.9 cm Analisa Nicole MD Work Phone: [facility] 09-12-2023 10:16-0400 Body mass index (BMI) [Ratio] 27.97 kg/m2 Analisa Nicole MD Work Phone: [facility] 09-12-2023 10:16-0400 Body weight 93.53 kg Analisa Nicole MD Work Phone: [facility] 09-12-2023 10:16-0400 Diastolic blood pressure 99 mm[Hg] Analisa Nicole MD Work Phone: [facility] 09-12-2023 10:16-0400 Heart rate 75 /min Analisa Nicole MD Work Phone: [facility] 09-12-2023 10:16-0400 SaO2% (BldA) [Mass fraction] 94 % Analisa Nicole MD Work Phone: [facility] 09-12-2023 10:16-0400 Systolic blood pressure 145 mm[Hg] Analisa Nicole MD Work Phone: [facility] 06-24-2023 08:19-0400 Body height 182.9 cm Aj Issa MD Work Phone: [facility] 06-24-2023 08:19-0400 Heart rate 72 /min Aj Issa MD Work Phone: [facility] 06-24-2023 08:19-0400 SaO2% (BldA) [Mass fraction] 100 % Aj Issa MD Work Phone: [facility] 10-19-2022 10:09-0400 Body height 185.4 cm Aj Issa MD Work Phone: [facility] 10-19-2022 10:09-0400 Heart rate 76 /min Aj Issa MD Work Phone: [facility] 10-19-2022 10:09-0400 SaO2% (BldA) [Mass fraction] 100 % Aj Issa MD Work Phone: [facility] 10-12-2022 11:40-0400 Diastolic blood pressure 72 mm[Hg] Beata Watkins MEDICAL RECORDS DIRECTOR.[employer] Work Phone: [facility] 10-12-2022 11:40-0400 Heart rate 77 /min Beata Watkins MEDICAL RECORDS DIRECTOR.[employer] Work Phone: [facility] 10-12-2022 11:40-0400 SaO2% (BldA) [Mass fraction] 98 % Beata Watkins MEDICAL RECORDS DIRECTOR.[employer] Work Phone: [facility] 10-12-2022 11:40-0400 Systolic blood pressure 126 mm[Hg] Beata Watkins MEDICAL RECORDS DIRECTOR.[employer] Work Phone: [facility] 08-31-2022 08:21-0400 Body weight 93.44 kg Wes Mcintosh MD Work Phone: [facility] 08-31-2022 08:21-0400 Diastolic blood pressure 70 mm[Hg] Wes Mcintosh MD Work Phone: [facility] 08-31-2022 08:21-0400 Heart rate 74 /min Wes Mcintosh MD Work Phone: [facility] 08-31-2022 08:21-0400 Systolic blood pressure 110 mm[Hg] Wes Mcintosh MD Work Phone: [facility] 08-17-2022 10:19-0400 Body height 185.4 cm Aj Issa MD Work Phone: [facility] 08-17-2022 10:19-0400 Heart rate 91 /min Aj Issa MD Work Phone: [facility] 08-17-2022 10:19-0400 SaO2% (BldA) [Mass fraction] 97 % Aj Issa MD Work Phone: [facility] 07-26-2022 09:23-0400 Body weight 96.16 kg Crystal Pradhan MEDICAL RECORDS DIRECTOR.[employer] Work Phone: [facility] 07-26-2022 09:23-0400 Diastolic blood pressure 84 mm[Hg] Crystal Pradhan MEDICAL RECORDS DIRECTOR.[employer] Work Phone: [facility] 07-26-2022 09:23-0400 Heart rate 74 /min Crystal Pradhan MEDICAL RECORDS DIRECTOR.[employer] Work Phone: [facility] 07-26-2022 09:23-0400 Respiratory rate 14 /min Crystal Lorne MEDICAL RECORDS DIRECTOR.[employer] Work Phone: [facility] 07-26-2022 09:23-0400 Systolic blood pressure 128 mm[Hg] Crystal Pradhan MEDICAL RECORDS DIRECTOR.[employer] Work Phone: [facility] 07-20-2022 10:12-0400 Body height 185.4 cm Aj Issa MD Work Phone: [facility] 07-20-2022 10:12-0400 Diastolic blood pressure 90 mm[Hg] Aj Issa MD Work Phone: [facility] 07-20-2022 10:12-0400 Heart rate 84 /min Aj Issa MD Work Phone: [facility] 07-20-2022 10:12-0400 Systolic blood pressure 144 mm[Hg] Aj Issa MD Work Phone: [facility] 07-01-2022 07:12-0400 Body temperature 97.59 [degF] Krislyn Aberegg PA Work Phone: [facility] 07-01-2022 07:12-0400 Body weight 96.8 kg Krislyn Aberegg PA Work Phone: [facility] 07-01-2022 07:12-0400 Diastolic blood pressure 76 mm[Hg] Krislyn Aberegg PA Work Phone: [facility] 07-01-2022 07:12-0400 Heart rate 94 /min Krislyn Aberegg PA Work Phone: [facility] 07-01-2022 07:12-0400 Respiratory rate 18 /min Krislyn Aberegg PA Work Phone: [facility] 07-01-2022 07:12-0400 SaO2% (BldA) [Mass fraction] 96 % Krislyn Aberegg PA Work Phone: [facility] 07-01-2022 07:12-0400 Systolic blood pressure 128 mm[Hg] Krislyn Aberegg PA Work Phone: [facility] 06-29-2022 15:26-0400 Body height 180.3 cm Aj Issa MD Work Phone: [facility] 06-29-2022 15:26-0400 Body weight 95.25 kg Aj Issa MD Work Phone: [facility] 06-29-2022 15:26-0400 Respiratory rate 18 /min Aj Issa MD Work Phone: [facility] 12-08-2021 09:35-0400 Body temperature 97.59 [degF] Korin Araiza APRN.[employer] Work Phone: [facility] 12-08-2021 09:35-0400 Body weight 95.53 kg Korin Araiza APRN.[employer] Work Phone: [facility] 12-08-2021 09:35-0400 Diastolic blood pressure 64 mm[Hg] Korin Araiza APRN.[employer] Work Phone: [facility] 12-08-2021 09:35-0400 Heart rate 86 /min Korin Araiza APRN.[employer] Work Phone: [facility] 12-08-2021 09:35-0400 Respiratory rate 18 /min Korin Araiza APRN.[employer] Work Phone: [facility] 12-08-2021 09:35-0400 SaO2% (BldA) [Mass fraction] 99 % Korin Araiza APRN.[employer] Work Phone: [facility] [facility] 12-08-2021 09:35-0400 Systolic blood pressure 122 mm[Hg] Korin Araiza NEHA.STONE DERRICKMAN AND RIGGER Work Phone: [facility] Encounters Encounter Date Encounter Type Care Provider Facility Start: 11-06-2024 Evaluation and management of inpatient Dipak Aguilar Facility:[facility] Start: 11-06-2024 Dr. Ilan Contreras MD -[facility] Work Phone: Start: 11-06-2024 Kylee Altamirano -[facility] Start: 11-05-2024 Dr. Ilan Contreras MD -[facility] Work Phone: Start: 11-04-2024 Dr. Genia Scott DO [facility] Work Phone: Start: 11-03-2024 Dr. Genia Scott [facility] Work Phone: Start: 11-02-2024 Dr. Genia Scott [facility] Work Phone: Start: 11-01-2024 Kylee Altamirano -[facility] Start: 10-31-2024 [facility] Start: 10-31-2024 Dr. Cece Bella MD - [facility] Start: 10-31-2024 Dr. Khai Bose MD [facility] Work Phone: Start: 10-30-2024 Airam Gottlieb NP-[facility] Start: 10-30-2024 Dr. Goran Bowens DO [facility] -[facility] Start: 10-29-2024 Kylee Altamirano -[facility] Start: 10-28-2024 Dr. Kenn Cavazos MD [facility] Start: 10-28-2024 Dr. Khai Bose MD [facility] Work Phone: Start: 10-27-2024 Dr. Kenn Cavazos MD - [facility] Start: 10-27-2024 ambulatory Dipak Aguilar Facilit y:[facility] Start: 10-27-2024 Dr. Sue Anderson MD -[facility] Start: 10-27-2024 Dr. [facility] Work Phone: Start: 10-26-2024 End: 11-06-2024 Evaluation and management of inpatient Dr. Fernanda Triplett MD -Intensive Care Unit Work Phone: Start: 10-26-2024 End: 11-06-2024 Dr. Ilan Contreras MD -[facility] Work Phone: Start: 10-26-2024 End: 10-26-2024 ambulatory Dipak Aguilar DO Work Phone: [facility] [place] Comment on above: Nausea Start: 10-14-2024 End: 10-14-2024 Dr. Abdelrahman Keller MD -Emergency Departm ent Work Phone: Start: 10-14-2024 End: 10-14-2024 Emergency department patient visit Dr. Dipak Aguilar DO Work Phone: -Emergency Department Work Phone: Start: 10-10-2024 End: 10-11-2024 Telephone encounter Dipak Aguilar DO Work Phone: [facility] [place] Comment on above: Patent Update: Mahin lester BP Start: 09-21-2024 End: 09-21-2024 Patient encounter procedure Vikki Worley MEDICAL RECORDS DIRECTOR.[employer]GER Work Phone: [facility] [place] Comment on above: Laceration of right hand without foreign body, subsequent encounter (Primary Dx) Start: 09-21-2024 End: 09-21-2024 ambulatory DIPAK AGUILAR Facility:[facility] Start: 09-17-2024 End: 09-17-2024 Office outpatient visit 25 minutes Vikki Worley MEDICAL RECORDS DIRECTOR.[employer] Work Phone: [facility] [place] Comment on above: Right eyelid lacerat ion, subsequent encounter (Primary Dx) Start: 09-17-2024 End: 09-17-2024 ambulatory DIPAK AGUILAR Facility:[facility] Start: 09-11-2024 End: 09-11-2024 Dr. Sukhdev Mark MD -Emergency Departmen t Work Phone: Start: 09-11-2024 End: 09-11-2024 Emergency department patient visit Dr. 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; Laceration without foreign body of right hand, initial encounter; Atrial fibrillation, unspecified type (HCC) Start: 09-10-2024 End: 09-10-2024 ambulatory DIPAK Magi AGUILAR Facility:[facility] Start: 09-10-2024 End: 09-10-2024 Patient encounter procedure Elaine Lorenzo MD Work Phone: Neurology Comment on above: TIA (transient ische alex attack) (Primary Dx); Mild cognitive impairment; Memory loss; Sleep apnea-like behavior; History of atrial fibrillation Start: 09-07-2024 End: 09-07-2024 ambulatory DIPAK AGUILAR Facility:[facility] Start: 09-05-2024 End: 09-05-2024 Patient encounter procedure [...] 09-05-2024 End: 09-05-2024 ambulatory DIPAK L AGUILAR Facility:[facility] Start: 08-31-2024 End: 10-31-2024 Follow-up encounter Ruma Hines APRN.[employer]MAN [employer]IGGER Work Phone: [facility] [place] Start: 08-22-2024 End: 08-22-2024 ambulatory RUMA SINA HINES Facility:[facility] Start: 07-12-2024 End: 07-12-2024 ambulatory DIPAK L AGUILAR Facility:[facility] Start: 07-02-2024 End: 07-02-2024 Patient encounter procedure Analisa Nicole MD Work Phone: Cardiology Comment on above: Permanent atrial fib rillation (HCC) [I48.21] (Primary Dx) Start: 07-02-2024 End: 07-02-2024 ambulatory DIPAK L AGUILAR Facility:[facility] Start: 06-28-2024 End: 06-28-2024 Office outpatient visit 25 minutes Elisa Garcia APRN.[employer]GER Work Phone: [facility] [place] Comment on above: Hypertension, essent ial (Primary Dx); Permanent atrial fibrillation (HCC); New onset type 2 diabetes mellitus (HCC) Start: 06-28-2024 End: 06-28-2024 ambulatory DIPAK L AGUILAR Facility:[facility] Start: 06-14-2024 End: 06-14-2024 [facility] Start: 06-13-2024 End: 06-13-2024 ambulatory [facility] Facility:[facility] Start: 06-08-2024 End: 06-08-2024 Telephone encounter Citlalli Bhatti RN Pulmonary Medicine Comment on above: FILM REQ-HARPSTER Start: 06-07-2024 End: 06-11-2024 Telephone encounter Dipak Aguilar DO Work Phone: [facility] [place] Comment on above: Patient Update Start: 05-31-2024 End: 05-31-2024 ambulatory Elisa Garcia APRN.[employer]GER Work Phone: [facility] [place] Comment on above: medication clarifica tion please Start: 05-31-2024 End: 05-31-2024 Refill Analisa Nicole MD Work Phone: [facility] [place] Comment on above: Med Change Request Start: 05-30-2024 End: 05-30-2024 Office outpatient visit 25 minutes Elisa Garcia APRN.[employer]GER Work Phone: [facility] [place] Comment on above: New onset type 2 bayron betes mellitus (HCC) (Primary Dx); Permanent atrial fibrillation (HCC); Hypertension, essential Start: 05-30-2024 End: 05-31-2024 Refill Analisa Nicole MD Work Phone: [facility] [place] Comment on above: Refill Request Start: 05-24-2024 End: 05-29-2024 Telephone encounter Dipak Aguilar DO Work Phone: [facility] [place] Comment on above: Patient Update Start: 05-21-2024 End: 05-22-2024 Telephone encounter Dipak Aguilar DO Work Phone: [facility] [place] Comment on above: Home Health Nursing- Plan of Care (And physical therapy plan of care/); Hypertension Start: 05-18-2024 End: 07-18-2024 Follow-up encounter Elisa Garcia APRN.[employer]MAN [employer]GER Work Phone: [facility] [place] Start: 05-17-2024 End: 05-17-2024 Follow-up encounter Radha Berman APRN.[employer]MAN [employer] RIGGER Work Phone: [facility] [place] Start: 05-17-2024 End: 05-17-2024 Telephone encounter Dipak Aguilar DO Work Phone: [facility] [place] Comment on above: Fax over last OV Not e Start: 05-17-2024 End: 05-17-2024 ambulatory DIPAK AGUILAR Facility:[facility] Start: 05-17-2024 End: 05-17-2024 Subsequent hospital visit by physician [facility] Work Phone: Radiology Comment on above: Hospital discharge f ollow-up [Z09] Start: 05-16-2024 End: 05-16-2024 ambulatory RADHA BERMAN Facility:[facility] Start: 05-16-2024 End: 05-16-2024 Office outpatient visit 40 minutes Radha Rosanna Bermantawanda SOLOMON.[employer]ONE DERRICKMAN AND RIGGER Work Phone: Family [facility] [place] Comment on above: Hospital discharge f ollow-up (Primary Dx); Asthma-COPD overlap syndrome (HCC); Chronic respiratory failure with hypoxia (HCC); Decreased activities of daily living (ADL); Bilateral leg edema; Confusion; Cerebrovascular accident (CVA), unspecified mechanism (HCC); Poor mobility; Unsteady gait Start: 02-06-2024 End: 02-08-2024 Refill Analisa Nicole MD Work Phone: [facility] [place] Comment on above: Refill Request Start: 01-31-2024 End: 01-31-2024 Telephone encounter Analisa Nicole MD Work Phone: Cardiology Start: 01-24-2024 End: 01-24-2024 Patient encounter procedure [facility] Provider [facility] Department Start: 01-09-2024 End: 01-10-2024 Telephone encounter Dipak Aguilar DO Work Phone: [facility] [place] Comment on above: Medication Problem Start: 01-04-2024 End: 01-04-2024 Patient encounter procedure [facility] Provider [facility] Start: 01-04-2024 End: 01-04-2024 Telephone encounter Analisa Nicole MD Work Phone: [facility] [place] Comment on above: Cardiac Clearance Start: 12-13-2023 End: 12-13-2023 Telephone encounter Elisa Garcia APRN.[employer]GER Work Phone: [facility] [place] Comment on above: Results; Appointment Start: 12-12-2023 End: 12-12-2023 Telephone encounter Analisa Nicole MD Work Phone: Cardiology Start: 12-12-2023 End: 12-12-2023 ambulatory DIPAK AGUILAR Facility:[facility] Start: 12-12-2023 End: 12-12-2023 Nursing evaluation of patient and report Nurse Card Admin [facility] Work Phone: Cardiology Comment on above: Screening for ischem ic heart disease (Primary Dx) Start: 12-12-2023 End: 12-12-2023 ambulatory DIPAK AGUILAR Facility:[facility] Start: 12-12-2023 End: 12-12-2023 Subsequent hospital visit by physician [facility] Work Phone: Nuclear Medicine Start: 12-06-2023 End: 12-06-2023 Telephone encounter Dipak Aguilar DO Work Phone: Family [facility] [place] Start: 12-05-2023 End: 12-05-2023 Patient encounter procedure Pulm Lab [facility] Work Phone: PULM LAB [facility] Start: 12-05-2023 End: 12-05-2023 Subsequent hospital visit by physician [facility] ([facility]) Work Phone: Cat [facility] Comment on above: Wheezing [R06.2] Start: 12-05-2023 End: 12-05-2023 ambulatory Pulm Lab [facility] Work Phone: [facility] Comment on above: Spirometry Start: 11-29-2023 End: 11-29-2023 ambulatory ELISA GARCIA Facility:[facility] Start: 11-29-2023 End: 11-29-2023 Patient encounter procedure Elisa Garcia MEDICAL RECORDS DIRECTOR.[employer]GER Work Phone: [facility] [place] Comment on above: Medicare annual well ness visit, subsequent (Primary Dx); Wheezing; Asthma-COPD overlap syndrome (HCC); SOB (shortness of breath) on exertion; Decreased activity tolerance; Productive cough; Screening for depression; Encounter for immunization; Encounter for screening examination for other mental health and behavioral disorders Start: 11-28-2023 End: 11-28-2023 ambulatory Nurse Card Admin [facility] Work Phone: Cardiology Comment on above: Stress Test Instruct ions for 12/05/23 Start: 11-28-2023 End: 11-28-2023 E-mail encounter from caregiver Nurse Card Admin [facility] Work Phone: Cardiology Start: 11-23-2023 End: 11-23-2023 ambulatory DIPAK AGUILAR Facility:[facility] Start: 11-23-2023 End: 11-23-2023 Office outpatient new 45 minutes Jeffrey Zurita MD Work Phone: Orthopaedics Comment on above: Lumbar spondylosis ( Primary Dx) Start: 11-23-2023 ambulatory DIPAK AGUILAR Facil ity:[facility] Start: 11-23-2023 End: 11-23-2023 Subsequent hospital visit by physician [facility] Work Phone: Radiology Comment on above: Bilateral hip pain [ M25.551, M25.552] Start: 11-14-2023 End: 11-16-2023 Refill Analisa Nicole MD Work Phone: [facility] [place] Comment on above: Refill Request Start: 11-10-2023 End: 11-10-2023 Orders Only Jeffrey Zurita MD Work Phone: Orthopaedics Comment on above: Bilateral hip pain ( Primary Dx) Start: 11-02-2023 End: 11-03-2023 Telephone encounter Dipak Aguilar DO Work Phone: [facility] [place] Start: 11-01-2023 End: 11-01-2023 Refill Wes Mcintosh MD Work Phone: [facility] [place] Comment on above: Refill Request Start: 10-04-2023 Telephone encounter Dipak upton DO Work Phone: [facility] [place] Start: 09-30-2023 ambulatory Facility:[facility] Start: 09-28-2023 Telephone encounter Analisa Nicole MD Work Phone: Cardiology Comment on above: Results Start: 09-12-2023 End: 09-12-2023 Patient encounter procedure Analisa Nicole MD Work Phone: Cardiology Comment on above: Screening for ischem ic heart disease (Primary Dx); Shortness of breath; Permanent atrial fibrillation (HCC) Start: 06-24-2023 End: 06-24-2023 Patient encounter procedure Aj Issa MD Work Phone: [place] [facility] Comment on above: Bladder neck strictu re (Primary Dx); ED (erectile dysfunction) of organic origin Start: 06-24-2023 End: 06-24-2023 ambulatory AJ ISSA Facility:[place] [facility] Start: 05-17-2023 Refill Aj Issa MD Work Phone: [facility] Comment on above: Refill Request Start: 05-02-2023 ambulatory Mini Saldaña RN Amb ulatory Care Management Comment on above: ACM HERMINIO RN ( EDU per request of payor) Start: 11-19-2022 Telephone encounter Radha Saul son MEDICAL RECORDS DIRECTOR.ST[employer] D[employer]ICKMAN [employer] RIGGER Work Phone: [facility] Comment on above: Results Start: 11-01-2022 Refill Wes Mcintosh MD Work Phone: Cardiology Comment on above: Refill Request Start: 10-26-2022 End: 10-26-2022 Nursing evaluation of patient and report Nurse Urol Marcy Work Phone: [facility] Comment on above: BPH with obstruction /lower urinary tract symptoms (Primary Dx) Start: 10-20-2022 Preprocedural examination done Aj Issa MD Work Phone: [facility] Work Phone: Start: 10-20-2022 Telephone encounter Aj Issa MD Work Phone: [facility] Comment on above: 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 Start: 10-19-2022 End: 10-19-2022 Patient encounter procedure Aj Issa MD Work Phone: [facility] Comment on above: Weak urinary stream (Primary Dx); Bladder neck stricture; Frequency of micturition Start: 10-14-2022 Telephone encounter Dipak upton DO Work Phone: [facility] [place] Comment on above: requesting a GI refe rral Start: 10-12-2022 End: 10-12-2022 Patient encounter procedure Beata Watkins APRN.[employer]MAN [employer] RIGGER Work Phone: [facility] Comment on above: Weak urinary stream (Primary Dx); Incomplete bladder emptying; Bladder neck stricture; Poor urinary stream; Nocturia Start: 09-29-2022 Telephone encounter Dipak upton DO Work Phone: [facility] Comment on above: Medication Problem Start: 08-31-2022 End: 08-31-2022 Patient encounter procedure Wes Mcintosh MD Work Phone: Cardiology Comment on above: Permanent atrial fib rillation (HCC) (Primary Dx) Start: 08-20-2022 Telephone encounter Aj Issa MD Work Phone: [facility] Comment on above: Results Start: 08-17-2022 End: 08-17-2022 Patient encounter procedure Aj Issa MD Work Phone: [facility] Comment on above: Bladder neck strictu re (Primary Dx); Nocturia; Urinary incontinence, unspecified type Start: 08-09-2022 End: 08-09-2022 Nursing evaluation of patient and report Nurse Urol Marcy Work Phone: [facility] Comment on above: BPH with obstruction /lower urinary tract symptoms (Primary Dx) Start: 08-05-2022 Telephone encounter Aj Issa MD Work Phone: [facility] Comment on above: 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 Start: 07-29-2022 Preprocedural examination done Aj Issa MD Work Phone: [facility] Work Phone: Start: 07-26-2022 End: 07-26-2022 Patient encounter procedure Crystal Pradhan APRN.[employer]ICKMAN [employer] RIGGER Work Phone: [facility] [place] Comment on above: Preoperative clearan ce (Primary Dx); Asthma-COPD overlap syndrome (HCC); Atrial fibrillation, unspecified type (HCC) Start: 07-26-2022 End: 07-26-2022 Preoperative state Crystal Pradhan APRN.[employer]ICKMAN [employer] RIGGER Work Phone: [facility] [place] Start: 07-22-2022 Telephone encounter Aj Issa MD Work Phone: [facility] Comment on above: Surgery Scheduled Start: 07-21-2022 Telephone encounter Dipak upton DO Work Phone: [facility] [place] Comment on above: medical clearance fo rm Start: 07-20-2022 End: 07-20-2022 Patient encounter procedure Aj Issa MD Work Phone: [facility] Comment on above: BPH with obstruction /lower urinary tract symptoms (Primary Dx); Nocturia; Poor urinary stream; Incomplete bladder emptying; Bladder neck stricture Start: 07-01-2022 End: 07-01-2022 Patient encounter procedure Denise FLOYD Work Phone: [facility] Comment on above: Acute otitis externa of right ear, unspecified type (Primary Dx); Cellulitis of right external ear Start: 06-29-2022 End: 06-29-2022 Patient encounter procedure Aj Issa MD Work Phone: [facility] Comment on above: BPH with obstruction /lower urinary tract symptoms (Primary Dx); Nocturia; Poor urinary stream; Frequency of micturition; Incomplete bladder emptying Start: 12-28-2021 Telephone encounter Wes Booth MD Work Phone: Cardiology Comment on above: Patient Update Start: 12-08-2021 End: 12-08-2021 Patient encounter procedure Korin Araiza APRN.[employer]ONE DERRICKMAN [employer] RIGGER Work Phone: [facility] Comment on above: Skin lesion (Primary Dx) Start: 12-07-2021 Telephone encounter Dipak upton DO Work Phone: [facility] Comment on above: Results Start: 12-01-2021 End: 12-01-2021 Nursing evaluation of patient and report Mi Nurse Work Phone: [facility] [place] Comment on above: Need for vaccination (Primary Dx) Start: 09-30-2021 Telephone encounter Wes Booth MD Work Phone: Cardiology Comment on above: Forms Start: 08-07-2021 ambulatory No Pcp Gisell Vail [facility] Start: 10-13-2020 End: 10-13-2020 Subsequent hospital visit by physician Kendra [facility] [place] Work Phone: Radiology Comment on above: Knee injury, right, initial encounter [S89.91XA] Start: 09-26-2019 Patient encounter status [facility] Start: 11-01-2017 End: 11-01-2017 Patient encounter AJ ISSA Facility:[facility] Procedures Date Procedure Procedure Detail Performing Clinician Start: 11-05-2024 Blood count smear mc rscp w/mnl difrntl wbc count Dr. Dipak [...] Start: 10-26-[address] lip[address] se measurement Dr. Dipka Aguilar DO Work Phone: Start: 10-26-[address] Marie Aguilar DO Work Phone: Start: 09-21-2024 REMOVAL SUTURES OR S TAPLES NOT REQUIRING ANESTHESIA Vikki Worley MEDICAL RECORDS DIRECTOR.[employer] D[employer]ICKMAN [employer] RIGGER Work Phone: Start: 09-17-2024 REMOVAL SUTURES OR S TAPLES NOT REQUIRING ANESTHESIA Vikki Worley MEDICAL RECORDS DIRECTOR.[employer]GER Work Phone: Start: 09-11-2024 X-ray of knee, four or more views Dr. Dipak Aguilar DO Work Phone: Start: 09-11-2024 CT of head without contrast Dr. Dipak Aguilar DO Work Phone: Start: 05-17-2024 Dup-scan xtr veins c omplete bilateral study Radha Berman MEDICAL RECORDS DIRECTOR.[employer]GER Work Phone: Start: 12-12-2023 Myocardial spect mul tiple studies Analisa Nicole MD Work Phone: Start: 12-05-2023 Plethysmography lung volumes w/wo airway resist Elisa Jose MEDICAL RECORDS DIRECTOR.[employer]ICKMAN [employer]IGGER Work Phone: Start: 11-29-2023 Adult depression scr eening assessment Elisa Garcia MEDICAL RECORDS DIRECTOR.[employer]ICKMAN [employer]IGGER Work Phone: Start: 11-23-2023 Radex spine lumbosac [...] microscopy Aj Issa MD Work Phone: Start: 10-12-2022 Urnls dip stick/tabl et rgnt auto w/o microscopy Beata Watkins MEDICAL RECORDS DIRECTOR.[facility] Work Phone: Start: 08-17-2022 Maritza post-voiding re sidual urine&/bladder cap Aj Issa MD Work Phone: Start: 08-17-2022 Culture bacterial quanttative colony count urine Aj Issa MD Work Phone: Start: 07-26-2022 Ecg routine ecg w/le ast 12 lds i&r only [facility] Provider Start: 07-20-2022 Urnls dip stick/tabl et rgnt auto w/o microscopy Aj Issa MD Work Phone: Start: 12-01-2021 [facility] COVI D-19 BIVALENT BOOSTER VACCINE, AGE 12+ YR Dipak Aguilar DO Work Phone: Start: 10-13-2020 Radiologic exam ches t 2 views Wes Chavez APRN.ESTIVEN Work Phone: Start: 10-13-2020 Radiologic exam knee complete 4/more views Wes Chavez APRN.ESTIVEN Work Phone: Plan of Treatment Date Care Activity Detail Author Start: 05-17-2027 Diabetes Screening Diabetes Screening [facility] Start: 11-03-2026 Diabetes Screening Diabetes Screening [facility] Start: 11-18-2025 Diabetes Screening Diabetes Screening [facility] Start: 09-30-2025 End: 09-30-2025 Patient encounter procedure 09/30/2025 2:00 PM EDT Office Visit [facility] [address] [place] [address] Aj Issa MD [address] [place] [address] 12 months [facility] Comment on above: 12 months Start: 09-05-2025 Diabetic foot examination Diabetic Foot Exam [facility] Start: 07-29-2025 DIABETES SCREEN DIABETES SCREEN [facility] Start: 05-16-2025 Hepatitis B surface antibody level LDL Cholesterol [facility] Start: 02-22-2025 [facility]c [facility] Start: 02-11-2025 End: 02-11-2025 Patient encounter procedure 02/11/2025 9:00 AM EST Office Visit Cardiology [address] [place] [address] Analisa Nicole MD [address], [address] [place] [id number] 6 month follow up Cardiology Comment on above: 6 month follow up Start: 12-24-2024 End: 12-24-2024 Patient encounter procedure 12/24/2024 3:00 PM EST Office Visit [facility] [place] [address] [place] [id number] Dipak Aguilar, DO [address] [place] [address] 4 month follow up [facility] [place] Comment on above: 4 month follow up Start: 11-28-2024 Anxiety Screening Anxiety Screening [facility] Start: 11-28-2024 Depression Screening Depression Screening [facility] Start: 11-28-2024 Urine microalbumin profile DTaP,Tdap,Td Vaccine (1 - Tdap) [facility] Comment on above: Postponed from 11/12/2017 (Declined at t his time) Start: 11-16-2024 DIABETES SCREEN DIABETES SCREEN [facility] Start: 11-16-2024 Hemoglobin A1c measurement HbA1C [facility] Start: 11-06-2024 Patient discharge [facility] Start: 11-03-2024 [facility] Start: 11-02-2024 Continuous pulse oximetry [facility] Start: 11-02-2024 Dual pressure spontaneous ventilation support [facility] Start: 11-02-2024 Inhalation therapy procedure [facility] Start: 10-31-2024 Care planning and problem solving actions [facility] Start: 10-31-2024 [facility] Start: 10-31-2024 Consultation [facility] Start: 10-31-2024 Referral to emergency medical service coordinator [facility] Start: 10-31-2024 Care planning and problem solving actions [facility] Start: 10-30-2024 Care planning and problem solving actions [facility] Start: 10-29-2024 Consultation [facility] Start: 10-29-2024 Speech therapy assessment [facility] [facility] Start: 10-29-2024 Vital signs measurements [facility] Start: 10-28-2024 End: 10-28-2024 [facility] Start: 10-28-2024 Percutaneous transhepatic insertion of biliary drain [facility] Start: 10-28-2024 [facility] Start: 10-27-2024 Application of intermittent pneumatic compression device [facility] Start: 10-27-2024 Following clinical pathway protocol [facility] Start: 10-27-2024 Aspiration precautions [facility] Start: 10-27-2024 Assessment of risk of venous thromboembolism [facility] Start: 10-27-2024 Care regimes management [facility] Start: 10-27-2024 Elevation of head of bed [facility] Start: 10-27-2024 Fall prevention [facility] Start: 10-27-2024 Insertion of catheter into peripheral vein [facility] Start: 10-27-2024 Introduction of urinary catheter [facility] Start: 10-27-2024 Measuring intake and output [facility] Start: 10-27-2024 Methicillin resistant Staphylococcus aureus screening test [facility] Start: 10-27-2024 Notification of physician [facility] Start: 10-27-2024 Oxygen therapy [facility] Start: 10-27-2024 Patient education [facility] Start: 10-27-2024 End: 10-27-2024 Patient referral to dietitian [facility] Start: 10-27-2024 Providing care according to standard [facility] Start: 10-27-2024 Provision of activity privileges [facility] Start: 10-27-2024 Referral to general surgeon [facility] Start: 10-27-2024 Referral to occupational therapist [facility] Start: 10-27-2024 Referral to service [facility] Start: 10-27-2024 Vital signs measurements [facility] Start: 10-27-2024 End: 10-27-2024 [facility] Start: 10-27-2024 Legionella pneumophila Ag [Presence] in Urine [facility] Start: 10-27-2024 Respiratory pathogens DNA and RNA panel - Respiratory specimen by ELOY with probe detection [facility] Start: 10-27-2024 Serum inorganic phosphate measurement [facility] Start: 10-27-2024 Streptococcus pneumoniae antigen assay [facility] Start: 10-27-2024 Verification routine [facility] Start: 10-26-2024 Admission procedure [facility] Start: 10-26-2024 Hospital admission, emergency, from emergency room, medical nature [facility] Start: 10-26-2024 [facility] Start: 10-22-2024 Influenza vaccination Influenza Vaccine (#1) [facility] Start: 10-14-2024 [facility] Start: 09-25-2024 End: 09-25-2024 Patient encounter procedure [facility] Comment on above: 12 months (resched from 06/25) Yearly- Need updated medication list Start: 09-21-2024 End: 09-21-2024 Patient encounter procedure 09/21/2024 8:40 AM EDT Office Visit [facility] [address] [place] [address] Vikki Worley APRN.[employer] [address] [place], [place] [address] stitch removal on hand(done at [facility] ER 09/11/24) [facility] Comment on above: stitch removal on hand(done at [facility] ER ) Start: 09-17-2024 End: 09-17-2024 Patient encounter procedure 09/17/2024 8:20 AM EDT Office Visit [facility] [address] [place] [address] Vikki Worley APRN.[employer] [address] [place] [address] [facility] 09/11/24 f/u-pt fell- stitch removal by eye [facility] Comment on above: [facility] 09/11/24 f/u-pt fell- stitch remov al by eye Start: 09-11-2024 Simple repair f/e/e/n/l/m 2.5cm/< [facility] Start: 09-11-2024 Smpl repair scalp/neck/ax/genit/trunk 2.6-7.5cm [facility] Start: 09-11-2024 [facility] Start: 09-10-2024 End: 09-10-2024 Patient encounter procedure 09/10/2024 11:00 AM EDT Office Visit Neurology [address] [place] [address] Elaine Lorenzo Jr., MD [address] [place] [address] Hospital discharge follow-up [Z09] Neurology Comment on above: Hospital discharge follow-up [Z09] Start: 09-07-2024 End: 09-07-2024 Patient encounter procedure 09/07/2024 1:50 PM EDT Office Visit Cardiology [address] [facility] [place] [address] Permanent atrial fibrillation (HCC) [I48.21]; Hypertension, essential [I10]; Pulmonary hypertension (HCC) [I27.20] Cardiology Comment on above: Permanent atrial fibrillation (HCC) [I48 .21]; Hypertension, essential [I10]; Pulmonary hypertension (HCC) [I27.20] Start: 09-05-2024 End: 09-05-2024 Patient encounter procedure 09/05/2024 12:00 PM EDT Office Visit [facility] [address] [facility] [place] [address] Dipak Aguilar DO [address] [place] [address] 3 mo follow up [facility] Comment on above: 3 mo follow up Start: 07-12-2024 End: 07-12-2024 Patient encounter procedure 07/12/2024 3:20 PM EDT Office Visit [facility] [address] [facility] [place] [address] Ruma Hines APRN.[employer] [address] [place], [place] [phone] 2 week follow up [facility] Comment on above: 2 week follow up Start: 07-02-2024 End: 07-02-2024 Patient encounter procedure Cardiology Comment on above: 1yr Start: 06-25-2024 End: 06-25-2024 Patient encounter procedure [facility] Comment on above: 12 months 12/28 lvm need to r/ s Dr. Issa off/12 months Lung nodule [R91.1] Start: 06-14-2024 End: 06-14-2024 Patient encounter procedure 06/14/2024 1:30 PM EDT Office Visit Pulmonary Medicine [address] [facility] [place] [address] Omar Treadwell APRN.[employer] [address] [place] [address] Lung nodule [R91.1] Pulmonary Medicine Comment on above: Lung nodule [R91.1] Start: 06-13-2024 End: 06-13-2024 Patient encounter procedure 06/13/2024 3:40 PM EDT Office Visit [facility] [address] [place], [place] [phone] Elisa Garcia APRN.[employer] [address] [place], [place] [address] 2 week bp check [facility] Comment on above: 2 week bp check Start: 05-30-2024 End: 05-30-2024 Patient encounter procedure 05/30/2024 2:40 PM EDT Office Visit [facility] [address] [place], [place] [address] Elisa Garcia APRN.[employer] [address] [place] [address] 2 wk [facility]: 2 wk follow up (diuretics) Start: 05-17-2024 End: 05-17-2024 Patient encounter procedure 05/17/2024 8:30 AM EDT Appointment Radiology [address] [place], [place] [id number] Hospital discharge follow-up [Z09] Radiology Comment on above: Hospital discharge follow-up [Z09] Start: 05-16-2024 End: 08-15-2024 Comprehensive metabolic 2000 panel - Serum or Plasma [facility] Work Phone: Comment on above: Expected: 05/16/2024, Expires: Start: 05-16-2024 End: 08-15-2024 Lipid 1996 panel - Serum or Plasma [facility] Comment on above: Expected: 05/16/2024, Expires: Start: 05-16-2024 End: 08-15-2024 Natriuretic peptide.B prohormone N-Terminal [Mass/volume] in Serum or Plasma [facility] Comment on above: Expected: 05/16/2024, Expires: Start: 05-16-2024 End: 08-15-2024 Thyrotropin [Units/volume] in Serum or Plasma [facility] Comment on above: Expected: 05/16/2024, Expires: Start: 04-28-2024 Covid-19 Vaccine () Covid-19 Vaccine () [facility] Start: 02-22-2024 Advance Directive Discussion Advance Directive Discussion [facility] Start: 02-22-2024 Medicare Advantage Annual Wellness Visit Medicare Advantage Annual Wellness Visit [facility] Start: 12-12-2023 End: 12-12-2023 Nursing evaluation of patient and report 12/12/2023 11:20 AM EDT Nurse Visit Cardiology [address] [place] [phone] Wstr, Nurse Card Admin 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 [address] [place] [address] Shortness of breath [R06.02] Cardiology Comment on [...] EDT Office Visit [facility] [address] [place], [place] [phone] Elisa Garcia APRN.[employer] [address] [place], [place] [phone] annual check up [facility] Comment on above: annual check up Start: 11-23-2023 End: 11-23-2023 Patient encounter procedure Orthopaedics Comment on above: kelley hip pain (both hips replaced in past outside of [facility]) b hip Start: 11-18-2023 Covid-19 Vaccine (6 - Pfizer series) Covid-19 Vaccine (6 - Pfizer series) [facility] Comment on above: Postponed from 04/03/2022 (Declined at t his time) Start: 11-18-2023 Urine microalbumin profile DTaP,Tdap,Td Vaccine (1 - Tdap) [facility] Comment on above: Postponed from 11/12/2017 (Declined at t his time) Start: 11-14-2023 DIABETES SCREEN DIABETES SCREEN [facility] Start: 11-02-2023 End: 02-01-2024 25-hydroxyvitamin D3 [Mass/volume] in Serum or Plasma VITAMIN D 25 HYDROXY Lab Routine Fatigue, unspecified type Atrial fibrillation, unspecified type (HCC) Vitamin D deficiency Expected: 11/02/2023, Expires: 02/01/2024 [facility] Comment on above: Expected: 11/02/2023, Expires: Start: 11-02-2023 End: 02-01-2024 CBC W Auto Differential panel - Blood COMPLETE BLOOD COUNT AND DIFFERENTIAL Lab Routine Fatigue, unspecified type Atrial fibrillation, unspecified type (HCC) Dyslipidemia Expected: 11/02/2023, Expires: 02/01/2024 [facility] Work Phone: Comment on above: Expected: 11/02/2023, Expires: Start: 11-02-2023 End: 02-01-2024 Cobalamin (Vitamin B12) [Mass/volume] in Serum or Plasma VITAMIN B12 Lab Routine Fatigue, unspecified type Atrial fibrillation, unspecified type (HCC) Expected: 11/02/2023, Expires: 02/01/2024 [facility] Comment on above: Expected: 11/02/2023, Expires: Start: 11-02-2023 End: 02-01-2024 Comprehensive metabolic 2000 panel - Serum or Plasma COMPREHENSIVE METABOLIC PANEL Lab Routine Atrial fibrillation, unspecified type (HCC) Expected: 11/02/2023, Expires: 02/01/2024 [facility] Comment on above: Expected: 11/02/2023, Expires: Start: 11-02-2023 End: 02-01-2024 Hemoglobin A1c in Blood HEMOGLOBIN A1C Lab Routine Atrial fibrillation, unspecified type (HCC) Hyperglycemia Expected: 11/02/2023, Expires: 02/01/2024 [facility] Comment on above: Expected: 11/02/2023, Expires: Start: 11-02-2023 End: 02-01-2024 Iron and Iron binding capacity panel - Serum or Plasma IRON AND TIBC Lab Routine Fatigue, unspecified type Atrial fibrillation, unspecified type (HCC) Expected: 11/02/2023, Expires: 02/01/2024 [facility] Comment on above: Expected: 11/02/2023, Expires: Start: 11-02-2023 End: 02-01-2024 Lipid 1996 panel - Serum or Plasma LIPID PANEL BASIC Lab Routine Atrial fibrillation, unspecified type (HCC) Dyslipidemia Expected: 11/02/2023, Expires: 02/01/2024 [facility] Comment on above: Expected: 11/02/2023, Expires: Start: 11-02-2023 End: 02-01-2024 Magnesium [Mass/volume] in Serum or Plasma MAGNESIUM Lab Routine Fatigue, unspecified type Atrial fibrillation, unspecified type (HCC) Expected: 11/02/2023, Expires: 02/01/2024 [facility] Comment on above: Expected: 11/02/2023, Expires: 4 Start: 11-02-2023 End: 02-01-2024 PSA/PROSTATE SPECIFIC ANTIGEN SCREENING PSA/PROSTATE SPECIFIC ANTIGEN SCREENING Lab Routine BPH with obstruction/lower urinary tract symptoms Screening for prostate cancer Expected: 11/02/2023, Expires: 02/01/2024 [facility] Comment on above: Expected: 11/02/2023, Expires: Start: 11-02-2023 End: 02-01-2024 Thyrotropin [Units/volume] in Serum or Plasma THYROID STIMULATING HORMONE Lab Routine Fatigue, unspecified type Atrial fibrillation, unspecified type (HCC) Expected: 11/02/2023, Expires: 02/01/2024 [facility] Comment on above: Expected: 11/02/2023, Expires: Start: 11-02-2023 End: 02-01-2024 Thyroxine (T4) free [Mass/volume] in Serum or Plasma T4 FREE/FREE THYROXINE Lab Routine Fatigue, unspecified type Atrial fibrillation, unspecified type (HCC) Expected: 11/02/2023, Expires: 02/01/2024 [facility] Comment on above: Expected: 11/02/2023, Expires: 4 Start: 11-01-2023 End: 01-31-2024 CBC W Auto Differential panel - Blood COMPLETE BLOOD COUNT AND DIFFERENTIAL Lab Routine Permanent atrial fibrillation (HCC) Expected: 11/01/2023, Expires: 01/31/2024 [facility] Work Phone: Comment on above: Expected: 11/01/2023, Expires: Start: 10-23-2023 Influenza vaccination Influ[facility] Start: 09-26-2023 End: 09-11-2024 Echocardiography ECHO Cardiology Routine Shortness of breath Expected: 09/26/2023, Expires: 09/11/2024 [facility] Comment on above: Expected: 09/26/2023, Expires: Start: 09-26-2023 End: 10-11-2024 NM Heart Perfusion W multiple states of exercise NM CARDIAC PERF STRESS/EXERCISE Radiology Routine Shortness of breath Expected: 09/26/2023, Expires: 10/11/2024 [facility] Comment on above: Expected: 09/26/2023, Expires: Start: 09-26-2023 End: 09-26-2023 Patient encounter procedure 09/26/2023 11:20 AM EDT Office Visit Cardiology [address] [place] [address] Shortness of breath [R06.02] Cardiology Comment on above: Shortness of breath [R06.02] Start: 09-12-2023 End: 09-07-2024 ECG COMPLETE [facility] Work Phone: Comment on above: Expected: 09/12/2023, Expires: Start: 09-12-2023 End: 09-12-2023 Patient encounter procedure 09/12/2023 10:40 AM EDT Office Visit Cardiology [address] [place] [phone] Analisa Nicole MD [address] [facility], [address] [place], [place] [phone] est care/ transfer from Dr. Mcintosh Cardiology Comment on above: est care/ transfer from Dr. Mcintosh Start: 02-21-2023 Advance Directive Discussion Advance Directive Discussion [facility] Start: 02-21-2023 Behavioral Health Screening Behavioral Health Screening [facility] Start: 02-21-2023 Depression Assessment Depression Assessment [facility] Start: 10-22-2022 Influenza vaccination INFLUENZA (#1) [facility] Start: 04-03-2022 COVID-19 VACCINE (6 - Pfizer series) COVID-19 VACCINE (6 - Pfizer series) [facility] Start: 02-21-2022 ADVANCE DIRECTIVE DISCUSSION ADVANCE DIRECTIVE DISCUSSION [facility] Start: 02-21-2022 DEPRESSION ASSESSMENT DEPRESSION ASSESSMENT [facility] Start: 10-22-2021 Influenza vaccination INFLUENZA (#1) [facility] Start: 03-19-2021 COVID-19 VACCINE (4 - Booster for Pfizer series) COVID-19 VACCINE (4 - Booster for Pfizer series) [facility] Start: 02-21-2021 ADVANCE DIRECTIVE DISCUSSION ADVANCE DIRECTIVE DISCUSSION [facility] Start: 02-21-2021 DEPRESSION ASSESSMENT DEPRESSION ASSESSMENT [facility] Start: 03-02-2019 SHINGRIX VACCINE (2 of 2) SHINGRIX VACCINE (2 of 2) [facility] Start: 11-12-2017 Urine microalbumin profile [facility] Start: 1954 Anxiety Screening Anxiety Screening [facility] Start: 1954 Depression Screening Depression Screening [facility] Start: 1946 Diabetic foot examination Diabetic Foot Exam [facility] Start: 1946 Glaucoma screening Dilated Retinal Exam [facility] Start: 1946 Hepatitis B screening Urine Albumin:Creatinine Ratio [facility] Bacteria identified in Urine by Culture URINE CULTURE Microbiology Routine Poor urinary stream Ordered: 07/20/2022 [facility] Work Phone: Comment on above: Ordered: 07/20/2022 Bacteria identified in Urine by Culture URINE CULTURE Microbiology Routine Urinary incontinence, unspecified type 08/17/2022 10:50 AM EDT [facility] Work Phone: Bacteria identified in Urine by Culture URINE CULTURE Microbiology Routine Weak urinary stream 10/12/2022 12:50 PM EDT [facility] Work Phone: End: 12-28-2024 CT Chest WO contrast CT CHEST WO IVCON Radiology Routine Wheezing Asthma-COPD overlap syndrome (HCC) SOB (shortness of breath) on exertion Decreased activity tolerance Productive cough 1 Occurrences starting 11/29/2023 until 12/28/2024 [facility] Work Phone: Comment on above: 1 Occurrences starting 11/29/2023 until 12/28/2024 CT Chest WO contrast CT CHEST WO IVCON Radiology Routine Wheezing Asthma-COPD overlap syndrome (HCC) SOB (shortness of breath) on exertion Decreased activity tolerance Productive cough 12/05/2023 11:51 AM EDT [facility] Work Phone: Cystourethroscopy CYSTO.PANENDO Procedures Routine Bladder neck stricture Ordered: 07/20/2022 [facility] Work Phone: Comment on above: Ordered: 07/20/2022 Cystourethroscopy CYSTO.PANENDO Procedures Routine Weak urinary stream Ordered: 10/19/2022 [facility] Work Phone: Comment on above: Ordered: 10/19/2022 Cystourethroscopy CYSTO.PANENDO Procedures Routine Bladder neck stricture Ordered: 06/24/2023 [facility] Work Phone: Comment on above: Ordered: 06/24/2023 End: 07-27-2023 ECG COMPLETE ECG COMPLETE ECG Routine Preoperative clearance 1 Occurrences starting 07/26/2022 until 07/27/2023 [facility] Work Phone: Comment on above: 1 Occurrences starting 07/26/2022 until 07/27/2023 ECG COMPLETE ECG COMPLETE ECG 07/26/2022 9:57 AM EDT [facility] End: 09-05-2025 Echocardiography ECHO Cardiology Routine Permanent atrial fibrillation (HCC) Hypertension, essential Pulmonary hypertension (HCC) 1 Occurrences starting 09/05/2024 until 09/05/2025 [facility] Work Phone: Comment on above: 1 Occurrences starting 09/05/2024 until 09/05/2025 End: 12-28-2024 LUNG VOLUMES LUNG VOLUMES PFT Routine Wheezing Asthma-COPD overlap syndrome (HCC) SOB (shortness of breath) on exertion Decreased activity tolerance Productive cough 1 Occurrences starting 11/29/2023 until 12/28/2024 [facility] Comment on above: 1 Occurrences starting 11/29/2023 until 12/28/2024 Magnesium measurement [facility] Patient Education [facility] Work Phone: Serum inorganic phos phate measurement [facility] End: 12-28-2024 SPIROMETRY - BASELINE AND POST DILATOR SPIROMETRY - BASELINE AND POST DILATOR PFT Routine Wheezing Asthma-COPD overlap syndrome (HCC) SOB (shortness of breath) on exertion Decreased activity tolerance Productive cough 1 Occurrences starting 11/29/2023 until 12/28/2024 [facility] Comment on above: 1 Occurrences starting 11/29/2023 until 12/28/2024 End: 06-15-2025 US Lower extremity vein - bilateral US DVT LOWER BILATERAL Radiology Routine Hospital discharge follow-up Bilateral leg edema 1 Occurrences starting 05/16/2024 until 06/15/2025 [facility] Comment on above: 1 Occurrences starting 05/16/2024 until 06/15/2025 End: 12-09-2024 XR HIP BILATERAL 5V PEL/AP/LAT EACH HIP XR HIP BILATERAL 5V PEL/AP/LAT EACH HIP Radiology Routine Bilateral hip pain 1 Occurrences starting 11/10/2023 until 12/09/2024 [facility] Comment on above: 1 Occurrences starting 11/10/2023 until 12/09/2024 End: 12-09-2024 XR Knee - right 4 Views XR KNEE GENERAL 4V AP BOTH/PA BOTH/LAT/MERC RIGHT Radiology Routine Bilateral hip pain 1 Occurrences starting 11/10/2023 until 12/09/2024 [facility] Work Phone: Comment on above: 1 Occurrences starting 11/10/2023 until 12/09/2024 End: 12-22-2024 XR Lumbar spine AP and Lateral XR LUMBAR LIMITED 2V AP/LAT Radiology Routine 1 Occurrences starting 11/23/2023 until 12/22/2024 [facility] Work Phone: Comment on above: 1 Occurrences starting 11/23/2023 until 12/22/2024 XR Lumbar spine AP a nd Lateral XR LUMBAR LIMITED 2V AP/LAT Radiology Routine 11/23/2023 8:59 AM EDT [facility] Immunizations Immunization Date Immunization Notes Care Provider Sandy echols 11-30-2023 zoster vaccine recombinant Pulm Wstr Work Phone: [facility] 10-30-2023 influenza virus vacc ine, unspecified formulation Dipak Aguilar DO Work Phone: [facility] 05-08-2023 COVID-19 vaccine, ag e 12+ yr, season (PFIZER-BIONTECH) Aj Issa MD Work Phone: [facility] 11-27-2022 COVID-19 vaccine, ag e 12+ yr, season (PFIZER-BIONTECH) Mini Saldaña RN [facility] 11-04-2022 influenza (HD-IIV4) vaccine, age 65+ yr, high dose, quadrivalent, PF (FLUZONE HIGH-DOSE) Radha Berman APRN.[employer] Work Phone: [facility] 11-04-2022 respiratory syncytia l virus (RSV) vaccine, adjuvanted (AREXVY) Radha Berman APRN.[employer] Work Phone: [facility] 11-04-2022 influenza virus vacc ine, unspecified formulation Analisa Nicole MD Work Phone: [facility] 12-01-2021 COVID-19 booster vaccine, age 12+ yr, bivalent (PFIZER-BIONTECH) Ar Nurse Work Phone: [facility] Work Phone: 11-16-2021 influenza, high-dose , quadrivalent vaccine (FLUZONE HIGH DOSE QUADRIVALENT) Ar Nurse Work Phone: [facility] Work Phone: 11-17-2020 COVID-19 vaccine, ag e 12+ yr (PFIZER-BIONTECH - PURPLE TOP) No Pcp [facility] 11-12-2020 influenza, high-dose , quadrivalent vaccine (FLUZONE HIGH DOSE QUADRIVALENT) No Pcp [facility] 04-16-2020 COVID-19 vaccine, ag e 12+ yr (PFIZER-BIONTECH - PURPLE TOP) No Pcp [facility] Work Phone: 03-18-2020 COVID-19 vaccine, ag e 12+ yr (PFIZER-BIONTECH - PURPLE TOP) No Pcp [facility] Work Phone: 11-12-2019 influenza, high-dose , quadrivalent vaccine (FLUZONE HIGH DOSE QUADRIVALENT) No [facility] 01-05-2019 zoster vaccine recombinant No [facility] 11-30-2018 Influenza virus vaccine W [facility] 11-10-2018 influenza, high dose seasonal, preservative-free No [facility] 11-11-2017 influenza, high dose seasonal, preservative-free No [facility] 11-11-2017 tetanus and diphther ia toxoids, adsorbed, preservative free, for adult use (5 Lf of tetanus toxoid and 2 Lf of diphtheria toxoid) No [facility] 11-10-2016 influenza, high dose seasonal, preservative-free No [facility] Work Phone: 11-10-2015 influenza, high dose seasonal, preservative-free No [facility] Work Phone: 11-07-2014 influenza, high dose seasonal, preservative-free No [facility] 11-07-2014 pneumococcal conjuga te vaccine, 13 valent No [facility] 10-08-2013 pneumococcal polysaccharide vaccine, 23 valent No [facility] 11-20-2012 influenza virus vacc ine, unspecified formulation No [facility] 11-20-2011 influenza virus vacc ine, unspecified formulation No [facility] Work Phone: 08-17-2010 tetanus and diphther ia toxoids, adsorbed, preservative free, for adult use (2 Lf of tetanus toxoid and 2 Lf of diphtheria toxoid) No [facility] 12-19-2006 influenza virus vacc ine, unspecified formulation No [facility] Work Phone: 05-23-1999 pneumococcal polysaccharide vaccine, 23 valent No [facility] [facility] Work Phone: Payers Date Payer Category Payer Self-pay 2009 Medicare [id number] 2009 Medicare AETNA MEDICARE A ETNA MEDICARE PPO [id number] 2009-Present [phone] [address] [place] [address] PPO [id number] 2009 Medicare AETNA MEDICARE A ETNA MEDICARE PPO [id number] 2009-Present [phone] [address] [place] [address] PPO [id number] 2009 Medicare (Managed Care) AETNA [place] DICARE [id number] 2009 Medicare [id number] 1936 Unknown [id number] 2.16.840.1.063871.3.579.2. 594 Unknown [id number] 2.16.840.1.769002.3.579.2. 462 Unknown [id number] 2.16.840.1.749658.3.579.2. 462 Unknown [id number] 2.16.840.1.731357.3.579.2. 462 Unknown [id number] 2.16.840.1.244858.3.579.2. 462 Unknown [id number] 2.16.840.1.369851.3.579.2. 462 Unknown [id number] 2.16.840.1.814120.3.579.2. 462 Unknown [id number] 2.16.840.1.068621.3.579.2. 462 Unknown [id number] 2.16.840.1.151661.3.579.2. 462 Unknown [id number] 2.16.840.1.873321.3.579.2. 462 Unknown [id number] 2.16.840.1.439233.3.579.2. 462 Unknown [id number] 2.16.840.1.655827.3.579.2. 462 Unknown [id number] 2.16.840.1.213084.3.579.2. 462 Unknown [id number] 2.16.840.1.847151.3.579.2. 462 Unknown [id number] 2.16.840.1.508621.3.579.2. 462 Unknown [id number] 2.16.840.1.392121.3.579.2. 462 Unknown [id number] 2.16.840.1.906264.3.579.2. 462 Unknown [id number] 2.16.840.1.355208.3.579.2. 462 Unknown [id number] 2.16.840.1.897288.3.579.2. 462 Unknown [id number] 2.16.840.1.985160.3.579.2. 462 Unknown [id number] 2.16.840.1.580018.3.579.2. 462 Unknown [id number] 2.16.840.1.742570.3.579.2. 462 Unknown [id number] 2.16.840.1.593820.3.579.2. 462 Unknown [id number] 2.16.840.1.106065.3.579.2. 462 Unknown [id number] 2.16.840.1.471935.3.579.2. 462 Unknown [id number] 2.16.840.1.468316.3.579.2. 462 Unknown [id number] 2.16.840.1.307759.3.579.2. 462 Unknown [id number] 2.16.840.1.496919.3.579.2. 462 Unknown [id number] 2.16.840.1.933639.3.579.2. 462 Social History Date Type Detail Facility Start: 09-26-2018 End: 10-27-2024 Tobacco smoking status NHIS Ex-smoker [facility] Work Phone: Start: 04-25-1950 End: 09-26-1973 History of tobacco use Current smoker [facility] Work Phone: Start: 04-25-1950 End: 09-26-1973 History of tobacco use Cigarette Smoker [facility] Work Phone: Start: 09-26-2018 End: 11-23-2023 Tobacco use and exposure Smokeless tobacco non-user [facility] Work Phone: Start: 10-13-2020 End: 07-02-2024 Alcohol intake Current drinker of alcohol (finding) [facility] Start: 11-06-2019 History SDOH Alcohol Frequency 4 [facility] Start: 11-06-2019 History SDOH Alcohol Std Drinks 1 [facility] Start: 11-06-2019 History SDOH Social Connections Phone 3 [facility] Start: 11-06-2019 History SDOH Social Connections Get Together 5 [facility] Start: 11-06-2019 History SDOH Social Connections Christian 2 [facility] Start: 11-06-2019 History SDOH Physica l Activity DPW 6 [facility] Start: 11-06-2019 Education 20 [facility] Start: 09-26-2018 End: 12-08-2021 Tobacco Comment I was a light smoker, 1 pack every 3 days. [facility] Start: 1935 Sex Assigned At Male C [facility] Start: 09-13-2020 End: 12-08-2021 Exposure to SARS-CoV-2 (event) Not sure [facility] Start: 06-29-2022 End: 07-29-2022 Cigarettes smoked current (pack per day) - Reported 0.3 [facility] Start: 07-29-2022 Alcohol Comment occassional-on ce weekly [facility] Start: 11-06-2019 End: 06-29-2022 Social connection and isolation panel [facility] Do you belong to any clubs or organizations such as scientology groups, unions, fraternal or athletic groups, or school groups? Yes [facility] Are you now , , , , never or living with a partner? [facility] How often to you hav e a drink containing alcohol? 2-3 time sa week [facility] How many standard dr inks containing alcohol do you have on a typical day? 1 or 2 [facility] How often do you hav e 6 or more drinks on 1 occasion? Never [facility] Start: 01-23-2012 Adult Depression Screening Assessment 0 [facility] Work Phone: Do you feel stress - tense, restless, nervous, or anxious, or unable to sleep at night because your mind is troubled all the time - these days [OSQ] Not at all [facility] (I/We) worried wheth er (my/our) food would run out before (I/we) got money to buy more. Never true [facility] In the past 12 month s, was there a time when you were not able to pay the mortgage or rent on time? No [facility] Start: 08-17-2020 Gender identity Identifies as male gender (finding) [facility] Do you feel stress - tense, restless, nervous, or anxious, or unable to sleep at night because your mind is troubled all the time - these days [OSQ] Only a little [facility] Work Phone: Start: 09-05-2019 Alcohol Alcohol [facility] Start: 09-05-2019 Lives Lives [facility] Medical Equipment Procedure Code Equipment Code Equipment Origin al Text Equipment Identifier Dates Test blood sugar (s) 1 times daily. Dx: Type 2 DM - Controlled E11.9 Insulin: No [id number] Start: 05-31-2024 Test blood sugar (s) 1 times daily. Dx: Type 2 DM - Controlled E11.9 Insulin: Yes [id number] Start: 05-31-2024 Goals Date Patient Goal Desired Activity /State Functional Status Date Assessment Result Facility 09-16-2025 Functional status Ambulates;Chair [facility] Work Phone: 11-05-2024 Functional status Fair [facility] Work Phone: 07-29-2022 Are you deaf, or do you have serious difficulty hearing No 07/29/2022 3:15 PM EDT Alejandra rFeedman APRN.[employer] No [facility] 07-29-2022 Are you blind, or do you have serious difficulty seeing, even when wearing glasses No 07/29/2022 3:15 PM EDT Alejandra Freedman APRN.[employer] No [facility] 07-29-2022 Do you have serious difficulty walking or climbing stairs No 07/29/2022 3:15 PM EDT Alejandra Freedman APRN.[employer] No [facility] 07-29-2022 Do you have difficul ty dressing or bathing No 07/29/2022 3:15 PM EDT Alejandra Freedman APRN.[employer] No [facility] 07-29-2022 Because of a physica l, mental, or emotional condition, do you have difficulty doing errands alone such as visiting a physician's office or shopping No 07/29/2022 3:15 PM EDT Alejandra Freedman APRN.[employer] No [facility] Mental Status Date Assessment Result Facility 11-06-2024 Cognitive function Voice/Name [facility] Work Phone: 10-14-2024 Cognitive function Awake;Alert;A ppropriate; Follows Commands [facility] Work Phone: 07-29-2022 Because of a physica l, mental, or emotional condition, do you have serious difficulty concentrating, remembering, or making decisions No 07/29/2022 3:15 PM EDT Alejandra Freedman APRN.ESTIVEN No [facility] Clinical Notes 10-26-2018 to 11-07-2024 Note Date & Type Note Facility 11-07-2024 Note HNO ID: [id number] Author: ?, ?, ? Service: ? Author Type: ? Type: Progress Notes Filed: 11/07/2024 15:02 Note Text: POPULATION HEALTH NAVIGATION OUTREACH Action/FYI -0 [facility] Wellness: Overdue since 02/22/2024 Flu: Due for dose 1 since 10/22/2024 MARVIN: Never Done KED (uacr AND efgr): Never Done Updated appt notes to address HCC/Care Gap Flipped appt to schedule wellness Called Patient: Patient answered and hun up, Web and Rank sent Reason for Outreach Care Gap/HCC or Scheduling Wellness Visits Care Gaps due: Diabetic Eye Exam KED Flu Vaccine Patient Contacted: Unable or unnecessary to reach patient: Unable to leave message [employer] message sent Updated appointment notes Flipped existing appointment Navigation Signature: Jody Lakhani November 07, 2024 2:55 PM [facility] 11-07-2024 Note Patient Outreach (NE TNAV) TAZ FOSTER ([id number]) 1935 M Date Time Provider Department 11/07/24 DIPAK AGUILAR During your visit today, we recorded the following information about you: Jody Lakhani 11/07/2024 3:02 PM Signed POPULATION HEALTH NAVIGATION OUTREACH Action/ -0 [facility] Wellness: Overdue since 02/22/2024 Flu: Due for dose 1 since 10/22/2024 MARVIN: Never Done KED (uacr AND efgr): Never Done Updated appt notes to address HCC/Care Gap Flipped appt to schedule wellness Called Patient: Patient answered and hun up, mychart sent Reason for Outreach Care Gap/HCC or Scheduling Wellness Visits Care Gaps due: Diabetic Eye Exam KED Flu Vaccine Patient Contacted: Unable or unnecessary to reach patient: Unable to leave message [employer] message sent Updated appointment notes Flipped existing appointment Navigation Signature: Jody Lakhani November 07, 2024 2:55 PM Allergies As of Date: 11/07/2024 Noted Allergy Reaction CYPRESS 09/22/2010 14 - Other: See Comments Comments: sneezing,runny nose CEDAR 08/17/2010 3 - Cough Comments: also [place] with same reaction MOLD 08/17/2010 3 - Cough PREDNISONE 05/16/2024 1 - Mental Status Change Comments: Hallucinations Date Reviewed: 09/25/2024 Reviewed by: Aj Issa MD - Fully Assessed Reason for Visit: Population Health Navigation Outreach [3910] Cmt: Rory Johnsonoster Prescriptions as of 11/07/2024 - losartan (COZAAR) 100 mg tablet Take [...] once daily. Problem List As Of Date 11/07/2024 Noted Resolved BENIGN NEOPLASM LG BOWEL [D12.6] [...] 3a chronic kidney 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] 11/16/2021 Hypertension, essential [I10] 09/05/2024 Pulmonary hypertension (HCC) [I27.20] 09/05/2024 New onset type 2 diabetes mellitus (HCC) [E11.9]09/05/2024 Cerebrovascular accident (CVA) (HCC) [I63.9] 09/05/2024 SOB (shortness of breath) on exertion [R06.02] 09/05/2024 Encounter Status:Closed by JODY LAKHANI on 11/07/24 [facility] 11-06-2024 Note [facility] 11-06-2024 Progress note Note Date/Time November 06, 2024 10:20am [facility] Medical Records Department [address] [place] [address] Progress Note - Infect Disease 11/06/24 1014 MR#: [id number] Acct: [id number] Name: TAZ FOSTER Rep #:[id number] : 1935 89 From: Junito eastman MD PCP: Dr. Dipak Aguilar, DO Status:AD IN Location: [place] [address] Physical Exam Narrative Feeling better, no fever, [...] Cosigner Signature (if applicable): CC: ~ Signed [facility] Work Phone: 1(360) 374-624709-16-2025 Discharge summary Author Ilan Contreras [facility] Note Date/Time November 06, 2024 9:38am [facility] Medical Records Department [address] [place] [address] Discharge Summary 11/06/24 0937 MR#: [id number] Acct: [id number] Name: TAZ FOSTER Rep #:[id number] : 1935 89 From: Ilan Contreras MD PCP: Dr. Dipak Aguilar, DO Status:AD M IN Location: [facility] GSG475- 1 Providers Date of Admission: 10/26/24 Date of Discharge: 11/06/24 Primary Care Physician: Dr. Dipak Aguilar, DO Consultations 10/27/24 00:32 Consult: General Surgery Routine Consulting Provider: Kenn Cavazos Reason for Consult: Acute cholecystitis EMERGENT Consult: No Notified: Yes Date Notified: 10/27/24 Time Notified: 00:02 Method of Notification: ED Physician Initiated Consult: Cogeneration Technician / Pulmonary Medicine Routine Consulting Provider: Pulmonary Medicine [facility] Reason for Consult: Sepsis, Acute Cholecystitis, ? PNA EMERGENT Consult: No Notified: Yes Date Notified: 10/27/24 Time Notified: [...] Consult: Afib RVR, uncontrolled EMERGENT Consult: No Notified: Yes Date Notified: 10/31/24 Time Notified: 08:22 Method of Notification: Text 10/31/24 08:24 Consult: Infectious Disease Routine Consulting Provider: Junito Knowles Reason for Consult: complicated cholecystitis, pnemonia, sepsis EMERGENT Consult: No Notified: Yes Date Notified: 10/31/24 Time Notified: [...] ? Requested for PT OT eval and high school social science teacher to assist with discharge planning Time spent in the patient's overall evaluation,decision-making process, review of diagnostic data, adjustment of management, discussion with other providers, nursing nursing and ancillary staff involved in patient's care documentation, 50 Minutes Medications at Discharge Home Medications omeprazole 40 mg capsule,delayed release 20 mg PO DAILY reflux 07/22/15 albuterol sulfate 90 mcg/actuation breath activated powder inhaler 1 puff PO [id number] of breath 09/05/19 multivitamin 1 tab PO [...] mg) PO Q4H PRN PRN Fever, pain 1- 11/30 #0 tabs 11/06/24 budesonide 0.5 mg/2 [...] Instructions Patient Instructions: RAD RN Abscess Drainage, RAD RN Procedural Sedation Additional Instructions / Restrictions: 1. Please get an appointment within the next 2 weeks to follow-up with your urologist at [facility] [place] Discharge Orders/Prescriptions Prescriptions: New amiodarone 200 mg [...] 0 0RF Deep Sea Nasal 0.65 % Aerosol,[place] 2 spray NASAL BID PRN PRN (Reason: [...] in before D/C Order can be placed): [facility] Facility Charges/Coding Visit Charges Inpatient E&M: 84346 Disch Hosp >30min 11/06/24 0938 <Electronically signed by Ilan Contreras MD> Cosigner Signature (if applicable): CC: Dr. Ilan Contreras MD; Dr. Dipak Aguilar DO~ Signed [facility] Work Phone: 1(704) 201-293709-16-2025 Discharge summary Author Ilan Contreras [facility] Note Date/Time November 06, 2024 9:37am [facility] Medical Records Department [address] [place] [address] Transfer to [facility] MR#: [id number] Acct: [id number] Name: TAZ FOSTER Rep #:[id number] : 1935 89 From: Ilan Contreras MD PCP: Dr. Dipak Aguilar DO Status:AD M IN Certification of patient admission REQUIRED AT TIME OF ADMISSION. I CERTIFY THAT [facility] SERVICES ARE REQUIRED TO BE GIVEN ON AN IN-PATIENT BASIS BECAUSE OF THE ABOVE NAMED PATIENT'S NEED FOR INTERMEDIATE CARE ON A CONTINUING BASIS FOR THE CONDITION(S) FOR WHICH HE/SHE WAS RECEIVING IN-PATIENT HOSPITAL SERVICES PRIOR TO HIS/HER TRANSFER TO [facility]. 11/06/24 0937<Electronically signed by Ilan Contreras MD> [...] ? Requested for PT OT eval and high school social science teacher to assist with discharge planning Time spent [...] diet to Regular with consistency/texture as per WILL CALL ORDER CLERK. Will add 120mL chocolate ensure plus HP [...] weeks to follow-up with your urologist at [facility] Discharge Orders/Prescriptions Prescriptions: New amiodarone 200 mg [...] 0 0RF Deep Sea Nasal 0.65 % Aerosol,[place] 2 spray NASAL BID PRN PRN (Reason: [...] in before D/C Order can be placed): [facility] Facility 11/06/24 0937 <Electronically signed by Ilan Contreras MD> Cosigner Signature (if applicable): CC: Dr. Fernanda Triplett MD; Dr. Dipak Aguilar DO; Dr. Gerard Asencio MD; Dr. Genia Scott DO; Dr. Cece Bella MD; Dr. Khai Bose MD; Dr. Junito Knowles MD; Dr. Kenn Cavazos MD ~ [facility] Work Phone: 1(298) 507-843909-16-2025 Progress note Author Kylee [facility] Note Date/Time November 06, 2024 7:55am [facility] Medical Records Department [address] [place] [address] Progress Note - Surgery 11/06/24 0710 MR#: [id number] Acct: [id number] Name: TAZ FOSTER Rep #:[id number] : 1935 89 From: Kylee FLOYD PA-C PCP: Dr. Dipak Aguilar DO Status:AD IN Location: [place] [id number]- Subjective Subjective Patient evaluated resting comfortably in [...] as needed Charges/Coding Visit Charges Inpatient E&M: 95937 Subs Hosp L2 11/06/24 0755 <Electronically signed by Kylee FLOYD PA-C> Cosigner Signature (if applicable): CC: ~ Signed [facility] Work Phone: 1(560) 609-771109-16-2025 [facility]09-15-2025 Progress note Author Junito Knowles [facility] Note Date/Time November 05, 2024 11:57am [facility] Medical Records Department [address] [place] [address] Progress Note - Infect Disease 11/05/24 1156 MR#: [id number] Acct: [id number] Name: TAZ FOSTER Rep #:[id number] : 1935 89 From: Junito eastman MD PCP: Dr. Dipak Aguilar, DO Status:AD M IN Location: [place] [address] Physical Exam Narrative Feeling better, no fever, [...] tolerate. More awake today. Will follow 11/05/24 1157 <Electronically signed by Junito Knowles MD> Cosigner Signature (if applicable): CC: ~ Signed [facility] Work Phone: 1(372) 779-345509-15-2025 Progress note Author Ilan Contreras [facility] Note Date/Time November 05, 2024 11:33am [facility] Medical Records Department [address] [place] [address] Progress Note - Hospitalist 11/05/24 1039 MR#: [id number] Acct: [id number] Name: TAZ FOSTER Rep #:[id number] : 1935 89 From: Ilan Contreras MD PCP: Dr. Dipak Aguilar, DO Status:AD M IN Location: [address] 1 Reason for Visit Chief Complaint: Abdominal pain, [...] ? Requested for PT OT eval and high school social science teacher to assist with discharge planning Time spent in the patient's overall evaluation,decision-making process, review of diagnostic data, adjustment of management, discussion with other providers, nursing nursing and ancillary staff involved in patient's care documentation, 50 Minutes Charges/Coding Visit Charges Inpatient E&M: 54583 Subs Hosp L3 Date medically ready for discharge: 11/02/24 Delay Comments: Awaiting acceptance from transitional care unit then will need rog-BJPE-hvirdkw due to IV Haldol being given 11/05/24 1133 <Electronically signed by Ilan Contreras MD> Cosigner Signature (if applicable): CC: ~ Signed [facility] Work Phone: 1(838) 519-275409-14-2025 Progress note Author Genia Scott [facility] Note Date/Time November 04, 2024 1:15pm [facility] Medical Records Department [address] [facility] [place] [address] Progress Note - Hospitalist 11/04/24 1305 MR#: [id number] Acct: [id number] Name: TAZ FOSTER Rep #:[id number] : 1935 89 From: Genia Scott DO PCP: Dr. Dipak Aguilar, DO Status:AD M IN Location: [place] [address]- 1 Reason for Visit Chief Complaint: Abdominal pain, [...] Intake and Output for Last 24 Hours 0911/03/24 11/04/24 23:59 23:59 23:59 Intake Total 1617.5 [...] follow-up outpatient with his primary urologist in [place]--> Dr. sIsa--> discussed with patient and family and instructions [...] isoutpatient follow-up at his primary urologist in [place] - No other chronic regimen - Follows at [facility] [place] GERD - P.o. PPI as ordered History of tobacco abuse - Remote DVT prophylaxis - Continue Eliquis CODE STATUS - Full code as verified on admission - Hospice and palliative care was consulted and was dismissed by the family Charges/Coding Visit Charges Inpatient E&M: 34431 Subs Hosp L2 Date medically ready for discharge: 11/02/24 Delay Comments: Awaiting acceptance from transitional care unit then will need kmm-AUFQ-qpczdax due to IV Haldol being given 11/04/24 1315 <Electronically signed by Genia Scott DO> Cosigner Signature (if applicable): CC: ~ Signed [facility] Work Phone: 1(470) 443-639509-13-2025 Progress note Author Genia Scott [facility] Note Date/Time November 03, 2024 1:17pm [facility] Medical Records Department [address] [place] [address] Progress Note - Hospitalist 11/03/24 0721 MR#: [id number] Acct: [id number] Name: TAZ FOSTER Rep #:[id number] : 1935 89 From: Genia Scott DO PCP: Dr. Dipak Aguilar DO Status:AD M IN Location: [place] [address]- Reason for Visit Chief Complaint: Abdominal pain, [...] Total 2550 / 2550 1617.5 / 1617.5 30 / 30 Output Total 1330 / 1330 930 / [...] Physician: Dipak Aguilar Performed By: Massiel Martinez, REBECACS, RVT ??? Chest X-Ray 11/02/24 22:00 IMPRESSION: No significant interval change. Reading Location: [facility] Rhythm Strip Rhythm Strip: [...] follow-up outpatient with his primary urologist in [place]--> Dr. Issa DM-2 - Hold oral regimen [...] No other chronic regimen - Follows at [facility] GERD - P.o. PPI as ordered History of tobacco abuse - Remote DVT prophylaxis - Continue Eliquis CODE STATUS - Full code as verified on admission - Hospice and palliative care was consulted and was dismissed by the family Charges/Coding Visit Charges Inpatient E&M: 24299 Subs Hosp L2 Date medically ready for discharge: 11/02/24 Delay Comments: Awaiting acceptance from transitional care unit then will need rjw-BCXN-gnaxvwo due to IV Haldol being given 11/03/24 1317 <Electronically signed by Genai Scott DO> Cosigner Signature (if applicable): CC: ~ Signed [facility] Work Phone: 1(707) 867-954209-13-2025 Progress note Author Arlin Paniagua [facility] Note Date/Time November 02, 2024 11:00pm [facility] Medical Records Department [address] [place] [address] Progress Note - Hospitalist 11/02/242218 MR#: [id number] Acct: [id number] Name: TAZ FOSTER Rep #:[id number] : 1935 89 From: Arlin Meraz PCP: Dr. Dipak Aguilar, DO Status:AD M IN Location: [facility]- 1 Hospitalist Note 6910 While rounding, noted telemetry alarming for severe [...] RR25, HR 102, p.ox 95% on BiPAP 12/ w/ 40% FiO2. 11/02/24 2300 <Electronically signed by Arlin DAVIDSON> Cosigner Signature (if applicable): CC: ~ Signed [facility] Work Phone: 1(267) 730-614309-12-2025 Radiology Diagnostic study [facility]09-12-2025 Progress note Author Genia Scott [facility] Note Date/Time November 02, 2024 4:07pm [facility] Medical Records Department [address] [place] [address] Progress Note - Hospitalist 11/02/24 0734 MR#: [id number] Acct: [id number] Name: TAZ FOSTER Rep #:[id number] : 1935 89 From: Genia Scott DO PCP: Dr. Dipak Aguilar, DO Status:AD M [facility] Reason for Visit Chief Complaint: Abdominal pain, [...] follow-up outpatient with his primary urologist in [place] DM-2 - Hold oral regimen is on [...] No other chronic regimen - Follows at [facility] GERD - Continue PPI and transition to oral as able History of tobacco abuse - Remote DVT prophylaxis - Continue Eliquis CODE STATUS - Full code as verified on admission - Hospice and palliative care was consulted and was dismissed by the family Charges/Coding Visit Charges Inpatient E&M: 03288 Subs Hosp L2 Date medically ready for discharge: 11/02/24 Delay Comments: Awaiting acceptance from transitional care unit then will need hbh-EDGT-objzadc due to IV Haldol being given 11/02/24 7009 <Electronically signed by Genia Scott DO> Cosigner Signature (if applicable): CC: ~ Signed [facility] Work Phone: 1(429) 851-727809-11-2025 Progress note Author Genia Scott [facility] Note Date/Time November 01, 2024 7:21pm [facility] Medical Records Department [address] [place] [address] Progress Note - Hospitalist 11/01/24 0747 MR#: [id number] Acct: [id number] Name: TAZ FOSTER Rep #:[id number] : 1935 89 From: Genia Scott DO [...] 77.1 H, Lymph % (Auto) 9.7 L, [place] % (Auto) 7.7, Eos % (Auto) 2.2, [...] the family Charges/Coding Visit Charges Inpatient E&M: 09852 Subs Hosp L2 11/01/241920 <Electronically signed by Genia Scott DO> Deonteer Signature (if applicable): CC: ~ Signed [facility] Work Phone: 1(668) 739-380309-11-2025 Progress note Author Junito Knowles [facility] Note Date/Time November 01, 2024 10:09am [facility] Medical Records Department [address] [place] [address] Progress Note - Infect Disease 11/01/24 1007 MR#: [id number] Acct: [id number] Name: TAZ FOSTER Rep #:[id number] : 1935 89 From: Junito eastman MD PCP: Dr. Dipak Aguilar, DO Status:AD M IN Location: ICU CVICU20 02-21 Physical Exam Narrative Agitation and confusion last [...] Cosigner Signature (if applicable): CC: ~ Signed [facility] Work Phone: 1(426) 387-984209-11-2025 Progress note Author Kylee Rodriguez [facility] Note Date/Time November 01, 2024 9:42am [facility] Medical Records Department [address] [place] [address] Progress Note - Surgery 11/01/24 0758 MR#: [id number] Acct: [id number] Name: TAZ FOSTER Rep #:[id number] : 1935 89 From: Kylee FLOYD PA-C PCP: Dr. Dipak Aguilar, DO Status:AD M IN Location: ICU CVICU20 02-21 Subjective Subjective Patient evaluated resting comfortably in [...] 77.1 H, Lymph % (Auto) 9.7 L, Hernando % (Auto) 7.7, Eos % (Auto) 2.2, [...] this patient Charges/Coding Visit Charges Inpatient E&M: 03019 Subs Hosp L2 11/01/24 0911 <Electronically signed [...] Cosigner Signature (if applicable): cc: ~* Signed [facility] Work Phone: 1(816) 369-507009-10-2025 Progress note Author Airam gonzales [facility] Note Date/Time October 31, 2024 3:23pm [facility] Medical Records Department [address] [place] [address] Progress Note - Palliative 10/31/24 1448 MR#: [id number] Acct: [id number] Name: TAZ FOSTER Rep #:[id number] : 1935 89 From: Airam Pulido FABRICATING MACHINE OPERATOR-C PCP: Dr. Dipak Aguilar, DO Status:AD M [...] outpatient services and the patient's daughter states he has had the same swallowing problems for 15 years and it has not changed. They did state that they no longer [...] code. She states that they live in [place] in the wintertime and that in March [...] Former tobacco use who presents to the [facility] ED on 10/26/2024 with onset of [...] Tuesday, may be percutaneous drain but uncertain. Objective Data Objective Data Vital Signs: Vital Signs Temp Pulse Resp BP Pulse Ox O2 Del Method O2 Flow Rate 97.8 F 87 20 H 129/85 H 100 Room Air 1 10/31/24 14:00 10/31/24 14:00 10/31/24 14:00 10/31/24 14:00 10/31/24 14:00 10/31/24 14:00 10/31/24 13:30 Oxygen Flow Rate (L/min) 1 Oxygen [...] 83.5 H, Lymph % (Auto) 6.4 L, Hernando % (Auto) 6.2, Eos % (Auto) 2.0, [...] recliner sleeping. Charges/Coding Palliative Care Palliative Care: 88376 Follow up 35-49 min Consulation Summary Current [...] present in the medical record? copy into [facility] Do you have a Healthcare Power Yes: Anika Foster 10/27/24 00:42 of Insulation Blanket Maker? Is a Healthcare Power of No, requested patient bring 10/27/24 00:42 Insulation Blanket Maker present in the copy into [facility] medical rec Do You Want Additional [...] a result of this Palliative Care Encounter: [[id number], [phone] ] minutes were spent in total for [...] Cosigner Signature (if applicable): CC: ~ Signed [facility] Work Phone: 1(729) 353-233509-10-2025 Progress note Author [facility] Note Date/Time October 31, 2024 3:18pm [facility] Medical Records Department [address] [place] [address] Progress Note - Cogeneration Technician 10/28/24 1008 MR#: [id number] Acct: [id number] Name: TAZ FOSTER Rep #:[id number] : 1935 89 From: Elaine Nelson PCP: [...] pain 1-10/10 Acetylcysteine 800 mg 10/28/24 09:30 Acetylcysteine 800 [...] mls @ 15 mls/hr 10/27/24 01:21 IV .[id number] PRN Saline Flush Sodium Chloride 250 mls @ 15 mls/hr 10/27/24 01:21 IV .L79Z19A PRN Additional IVPB Infusion Vancomycin HCl 750 mg/ Sodium 265 mls @ 250 mls/hr 10/27/24 13:30 10/28/24 03:20 Chloride IV Infused Q12H SOLEDAD Infusion Diltiazem HCl 125 mg/ Dextrose 125 mls @ 5 mls/hr 10/27/24 14:45 10/28/24 08:43 IV 5 mg/hr .Q25H SOL[facility]AD 5 mls/hr Administration Protocol 5 MG/HR Dextrose/Lactated Ringer's 1,000 mls @ 75 mls/hr 10/27/24 14:45 10/28/24 05:47 IV 75 mls/hr .[id number] [facility] Administration Lactated Ringer's 1,000 mls @ 75 mls/hr 10/28/24 09:45 IV 10/29/24 12:24 .[id number] [facility] Magnesium Sulfate 4 gm in 100 mls @ 25 mls/hr 10/28/24 09:34 IV 10/28/24 13:33 X1 ONE Insulin Human Lispro 0 unit 10/27/24 00:32 10/28/24 05:46 Insulin Lispro 100 Unit/Ml Insuln.Pen SC 1 u Q6 SOLEDAD Administration Protocol Ipratropium [place] 0.5 mg 10/27/24 00:32 10/28/24 06:58 Ipratropium [...] 09:30 Senna/Docusate Sodium 1 Tablet PO BID [facility] Sodium Chloride 10 - 40 ml 10/27/24 01:21 10/28/24 08:43 0.9% Saline Lock 10 Ml Syringe IV 10 ml UD PRN Administration SALINE FLUSH Vancomycin Protocol 1 lab 10/28/24 12:00 Vancomycin Trough/Random Due MC 10/28/24 14:00 DAILY [facility] Lab / Micro Data 10/28/24 05:39 [...] 90.7 H, Lymph % (Auto) 3.9 L, Hernando % (Auto) 3.2, Eos % (Auto) 0.5, [...] Aguilar Performed By: Citlalli Arzate, ANUPAMA, RVT Abdomen X-Ray 10/28/24 09:30 IMPRESSION: Mild constipation. Probable left lung base infiltrate/pleural fluid. Reading Location: [id number] Assessment and Plan . Assessment and plan: [...] by Kenn Cavazos MD> CC: ~ Signed [facility] Work Phone: [phone]) 125-670509-10-2025 Progress note Author Kenn Cavazos [facility] Note Date/Time October 31, 2024 3:18pm [facility] Medical Records Department [address] [place] [address] Progress Note - Surgery 10/29/24 1225 MR#: [id number] Acct: [id number] Name: TAZ FOSTER Rep #:[id number] : 1935 89 From: Kenn Cavazos MD [...] Total 400 / 400 760 / 760 Balance 4157.75 / 4157.75 2886.34 / 2886.34 [...] 90.7 H, Lymph % (Auto) 3.5 L, Hernando % (Auto) 3.5, Eos % (Auto) 0.2, [...] 10/28/24 13:11 IMPRESSION: As above. Reading Location: [address] Chest X-Ray 10/28/24 14:10 IMPRESSION: Right PICC as above. Reading Location: [address] Physical Exam Narrative Patient is drowsy [...] and antibiotics. Will continue to follow 10/31/24 5278 <Electronically signed by Kenn Cavazos MD> Cosigner Signature (if applicable): CC: ~ Signed [facility] Work Phone: [phone] Progress note Author Khai Bose [facility] Note Date/Time October 31, 2024 2:17pm [facility] Medical Records Department [address] [place] [address] Progress Note - Hospitalist 10/31/24 0731 MR#: [id number] Acct: [id number] Name: TAZ FOSTER Rep #:[id number] : 1935 89 From: Khai Nelson PCP: [...] 85.4 H, Lymph % (Auto) 5.6 L, Hernando % (Auto) 6.4, Eos % (Auto) 1.1, [...] 83.5 H, Lymph % (Auto) 6.4 L, Hernando % (Auto) 6.2, Eos % (Auto) 2.0, [...] Body Fluid Culture - Preliminary GNR lactose cage supervisor GNR lactose cage supervisor#2 10/26/24 15:55 Blood Culture (Wb) - Arm [...] reviewed in H&P. Surgeon is being consulted. Cogeneration Technician consulted. Urinary antigens, respiratory panel and MRSA [...] 10/30: Cholecystostomy tube fluid growing GNR lactose cage supervisor. Continue IV Zosyn. Vancomycin discontinued. MRSA nasal [...] A-fib RVR, on Cardizem drip 15 mg/h. [employer] consulted. Patient putback on IV heparin drip. [...] need for intervention. #16. CODE status: Patient JEMIMAOA is his who is present and living [...] andaggressive management. Charges/Coding Visit Charges Inpatient E&M: 00360 Subs Hosp L3 10/31/24 0835 <Electronically signed by Khai Bose MD> Cosigner Signature (if applicable): CC: ~ Signed ADDENDUM by Dr. Khai Bose MD on 10/31/24 at 1417 Addendum Discussed with the palliative RN, Airam. She will have family meeting in the evening today 10/31/24 1417<Electronically signed by Khai Bose MD> Cosigner Signature (if applicable): cc: ~* Signed [facility] Work Phone: [phone]) 184-500809-10-2025 Consult note Author Junito Alexanderninger [facility] Note Date/Time October 31, 2024 1:37pm [facility] Medical Records Department [address] [place] [address] Consultation - Infectious Dx 10/31/24 1334 MR#: [id number] Acct: [id number] Name: TAZ FOSTER Rep #:[id number] : 1935 89 From: Junito eastman MD [...] Reason for Consultation: cholecystitis HPI Narrative: TAZ FOSTER, is a 89 M with h/o CVAs, CKD, DM, presented 10/26 with acute onset RUQ pain with n/v. Pain was moderate. Some associated chills. Thought it was food poisoning. Came to ED, admitted on zosyn. Seen by surgery, had akash tube placed. Now feeling better. Pt unable to provide history; obtained from at bedside. Full ROS performed and neg except as noted above. PFSH Medical History Type 2 diabetes mellitus Hyperlipidemia [...] 83.5 H, Lymph % (Auto) 6.4 L, Hern[place] % (Auto) 6.2, Eos % (Auto) 2.0, [...] Rhythm Strip Rhythm Strip: A-fib Rate: 90 09/10/25 1337 <Electronically signed by Junito Knowles MD> Cosigner Signature (if applicable): CC: Dr. Dipak Aguilar, DO~ Signed [facility] Work Phone: [phone]) [phone] Procedure [facility] 10-31-2024 Consult note Author Cece Bella [facility] Note Date/Time October 31, 2024 9:23am [facility] Medical Records Department [address] [place] [address] Consultation - Cardiology 10/31/24 0904 MR#: [id number] Acct: [id number] Name: TAZ FOSTER Rep #:[id number] : 1935 89 From: Cece Bella MD PCP: Dr. Dipak Aguilar, Status:AD M [...] fibrillation graph ventricular response. HPI Narrative: TAZ FOSTER, is a 89 M who presents patient [...] can be transition back to his Eliquis. [facility] Medical History Type 2 diabetes mellitus Hyperlipidemia [...] Psych cooperative Charges/Coding Visit Charges Inpatient E&M: 47929 Init Hosp L2 Objective Data Vital Signs: [...] 85.4 H, Lymph % (Auto) 5.6 L, Hernando % (Auto) 6.4, Eos % (Auto) 1.1, [...] 83.5 H, Lymph % (Auto) 6.4 L, [place] % (Auto) 6.2, Eos % (Auto) 2.0, [...] 85.4 H, Lymph % (Auto) 5.6 L, [place] % (Auto) 6.4, Eos % (Auto) 1.1, [...] 83.5 H, Lymph % (Auto) 6.4 L, [place] % (Auto) 6.2, Eos % (Auto) 2.0, [...] applicable): CC: Dr. Dipak Aguilar, DO~ Signed [facility] Work Phone: [phone]) 194-770309-10-2025 Progress note Author Kylee Rodriguez [facility] Note Date/Time October 31, 2024 8:33am [facility] Medical Records Department [address] [place] [address] Progress Note - Surgery 10/31/24822 MR#: [id number] Acct: [id number] Name: TAZ FOSTER Rep #:[id number] : 1935 89 From: Kylee FLOYD PA-C [...] 85.4 H, Lymph % (Auto) 5.6 L, [place] % (Auto) 6.4, Eos % (Auto) 1.1, [...] 83.5 H, Lymph % (Auto) 6.4 L, [place] % (Auto) 6.2, Eos % (Auto) 2.0, [...] this patient Charges/Coding Visit Charges Inpatient E&M: 12763 Subs Hosp L2 10/31/2433 <Electronically signed by Kylee FLOYD PA-C> Cosigner Signature (if applicable): CC: ~ Signed [facility] Work Phone: 1(874) [phone] Progress note Author Khai Bose [facility] Note Date/Time October 30, 2024 1:56pm [facility] Medical Records Department [address] [place] [address] [place] [address] Progress Note - Hospitalist 10/30/24844 MR#: [id number] Acct: [id number] Name: TAZ FOSTER Rep #:[id number] : 1935 89 From: Khai Nelson PCP: Dr. Dipak Aguilar, DO Status:AD M IN [facility] Reason for Visit Chief Complaint: Abdominal pain, [...] Body Fluid Culture - Preliminary GNR lactose cage supervisor GNR lactose cage supervisor#2 10/26/24 15:55 Blood Culture (Wb) - Arm [...] in place. Laboratory results pending. Reading Location: [place] [address] Physical Exam Narrative Seen and examined No [...] reviewed in H&P. Surgeon is being consulted. Cogeneration Technician consulted. Urinary antigens, respiratory panel and MRSA [...] 10/30: Cholecystostomy tube fluid growing GNR lactose cage supervisor. Continue IV Zosyn. Vancomycin discontinued. MRSA nasal [...] the discussion Charges/Coding Visit Charges Inpatient E&M: 81739 Subs Hosp L3 10/30/24 0902 <Electronically signed by Khai Bose MD> Cosigner Signature (if applicable): CC: ~ Signed ADDENDUM by Dr. Khai Bose MD on 10/30/24 at 1356 Addendum Positive fluid balance 2.75 L. Urine output 855 mL. Drainage amount 140 mL from PERI drain 10/30/24 1356<Electronically signed by Khai Bose MD> Cosigner Signature (if applicable): cc: ~* Signed [facility] Work Phone: 1(555) 248-378109-09-2025 Progress note Author Kylee Rodriguez [facility] Note Date/Time October 30, 2024 1:41pm [facility] Medical Records Department [address] [place] [address] Progress Note - Surgery 10/30/24 0709 MR#: [id number] Acct: [id number] Name: TAZ FOSTER Rep #:[id number] : 1935 89 From: Kylee FLOYD PA-C [...] in place. Laboratory results pending. Reading Location: [place] [address] Physical Exam GI GI Narrative: Abdomen- slight [...] this patient Charges/Coding Visit Charges Inpatient E&M: 26481 Subs Hosp L2 10/30/24 0853 <Electronically signed [...] Cosigner Signature (if applicable): cc: ~* Signed [facility] Work Phone: 1(861) [phone] Consult note Author Airam gonzales [facility] Note Date/Time October 30, 2024 1:34pm [facility] Medical Records Department [address] [place] [address] [place] [address] Consultation - Palliative Care 10/30/24941 MR#: [id number] Acct: [id number] Name: TAZ FOSTER Rep #:[id number] : 1935 89 From: Airam DAVIDSON PCP: Dr. Dipak Aguilar, DO Status:AD M IN Location: ICU [place] [address] 1-1 [facility] Medical History Type 2 diabetes mellitus Hyperlipidemia [...] this time Charges/Coding Palliative Care Palliative Care: 67088 New Pt Consult 80+ min HPI Current [...] code. She states that they live in [place] in the wintertime and that in March [...] Former tobacco use who presents to the [facility] ED on 10/26/2024 with onset of [...] Tuesday, may be percutaneous drain but uncertain. Palliative Assessment Advanced Directive - Current Admission Advance Directive: Advance Directive ON ADMISSION - REFERENCE 3 Do you have a Healthcare Yes 10/27/24 00:42 Living Will? Is a Healthcare Living Will No, requested patient bring 10/27/24 00:42 present in the medical record? copy into [facility] Do you have a Healthcare Power Yes: Anika Foster 10/27/24 00:42 of Insulation Blanket Maker? Is a Healthcare Power of No, requested patient bring 10/27/24 00:42 Insulation Blanket Maker present in the copy into [facility] medical rec Do You Want Additional Declined 10/27/24 00:42 Information on Advanced Directives or Healthcare Proxy/DPOA comments: daughter Annika [phone] Anika [phone] Psychosocial/Spiritual Information Living situation/Marital status: (all information from pt ) Geographic location: [place] Supports: family Anglican/Sariah or spiritual preference: Jew Spiritual distress: none Prior functional status: All ADL's prior to hospital and driving. daughter is WILL CALL ORDER CLERK and helping with swallow Assistive devices at [...] Body Fluid Culture - Preliminary GNR lactose cage supervisor GNR lactose cage supervisor#2 10/26/24 15:55 Blood Culture (Wb) - Arm [...] in place. Laboratory results pending. Reading Location: [place] [address] Rhythm Strip Rhythm Strip: A-fib Rate: 140 [...] a result of this Palliative Care Encounter: [[id number], 7577-4325 ] minutes were spent in total for [...] applicable): CC: Dr. Dipak Aguilar DO~ Signed [facility] Work Phone: [phone]) [phone] Progress note Author Goran Bowens [facility] Note Date/Time October 30, 2024 10:06am [facility] Medical Records Department [address] [place] [address] Progress Note - Cogeneration Technician 10/30/24 0736 MR#: [id number] Acct: [id number] Name: TAZ FOSTER Rep #:[id number] : 1935 89 From: Goran Bowens DO PCP: Dr. Dipak Aguilar DO Status:AD M [...] the patient. This note was generated with TrackBill dictation software. It may contain incorrectwords, spelling, [...] aspirate is positive for gram-negative rods, lactose cage supervisor. Vital Signs: Vital Signs Temp Pulse Resp [...] in place. Laboratory results pending. Reading Location: [place] [address] Physical Exam Const Constitutional Narrative: The patient [...] flat affect Charges/Coding Visit Charges Inpatient E&M: 36935 Subs Hosp L2 10/30/24 1006 <Electronically signed by Goran Bowens DO> Cosigner Signature (if applicable): CC: ~ Signed [facility] Work Phone: 1(774) 188-433109-08-2025 Consult note Author Gerard Asencio [facility] Note Date/Time October 29, 2024 2:41pm [facility] Medical Records Department [address] [place] [address] Consultation 10/29/24 1439 MR#: [id number] Acct: [id number] Name: TAZ FOSTER Rep #:[id number] : 1935 89 From: Gerard Asencio MD PCP: Dr. Dipak Aguilar, DO Status:AD M IN Location: ICU CVICU 1-1 HPI Consult Data Date of Consult: 10/29/24 HPI Narrative Reason for Consultation: Unable to place [place] by staff HPI Narrative: TAZ FOSTER, is a 89 M who presents to [...] wire was able to place a 16 Burundian counciltip catheter into the bladder with return of dark urine. 10 cc were put into the balloon, he will need to go home with a catheter after discharge and follow-up with his urologist. Call me with questions [facility] Medical History Type 2 diabetes mellitus Hyperlipidemia [...] 90.7 H, Lymph % (Auto) 3.5 L, [place] % (Auto) 3.5, Eos % (Auto) 0.2, [...] in place. Laboratory results pending. Reading Location: [place] [address] 10/29/24 1441 <Electronically signed by Gerard Asencio MD> Cosigner Signature (if applicable): CC: Dr. Dipak Aguilar, DO~ Signed [facility] Work Phone: [phone] Progress note Author Khai Bose [facility] Note Date/Time October 29, 2024 1:46pm [facility] Medical Records Department [address] [place] [address] Progress Note - Hospitalist 10/29/24921 MR#: [id number] Acct: [id number] Name: TAZ FOSTER Rep #:[id number] : 1935 89 From: Khai Nelson PCP: Dr. Dipak Aguilar, DO Status:AD M IN Location: ICU CVICU 1-1 Reason for Visit Chief Complaint: Abdominal [...] 90.7 H, Lymph % (Auto) 3.5 L, [place] % (Auto) 3.5, Eos % (Auto) 0.2, [...] left lung base infiltrate/pleural fluid. Reading Location: [id number] Chest X-Ray 10/28/24 13:11 IMPRESSION: As above. Reading Location: [facility] Chest X-Ray 10/28/24 14:10 IMPRESSION: Right PICC as above. Reading Location: [id number] Physical Exam Narrative Seen and examined Urine [...] reviewed in H&P. Surgeon is being consulted. Cogeneration Technician consulted. Urinary antigens, respiratory panel and MRSA [...] DNR-CC status. Charges/Coding Visit Charges Inpatient E&M: 26507 Subs Hosp L3 10/29/24 1346 <Electronically signed by Khai Bose MD> Cosigner Signature (if applicable): CC: ~ Signed [facility] Work Phone: 1(194) [phone] [facility]09-08-2025 Radiology Diagnostic study [facility]09-08-2025 Progress note Author Ilan Oliver [facility] Note Date/Time October 29, 2024 10:30am [facility] Medical Records Department [address] [place] [address] Progress Note - Cogeneration Technician 10/29/24 1019 MR#: [id number] Acct: [id number] Name: TAZ FOSTER Rep #:[id number] : 1935 89 From: Ilan Nelson PCP: Dr. Dipak Aguilar, DO Status:AD M IN Location: ICU CVICU20 1- Objective Data Objective Data Vital Signs: Vital [...] pain 1-11/30 Acetylcysteine 800 mg 10/28/24 09:30 10/29/24 07:16 [...] mls @ 15 mls/hr 10/27/24 01:21 IV .[id number] PRN Saline Flush Sodium Chloride 250 mls @ 15 mls/hr 10/27/24 01:21 10/28/24 21:19 IV 0 mls/hr .[id number] PRN Infusion Additional IVPB Infusion Dextrose/Lactated Ringer's 1,000 mls @ 75 mls/hr 10/27/24 14:45 10/29/24 09:18 IV 75 mls/hr .I68S58N SOLEDAD Administration Sodium Chloride 250 mls @ 15 mls/hr 10/29/24 09:00 IV 10/29/24 23:59 .L38R58G SOLEDAD Insulin Human Lispro 0 unit 10/27/24 00:32 10/29/24 05:25 Insulin Lispro 100 Unit/Ml Insuln.Pen SC Not Given Q6 SOLEDAD Protocol Ipratropium [place] 0.5 mg 10/27/24 00:32 10/29/24 07:16 Ipratropium [...] 90.7 H, Lymph % (Auto) 3.5 L, [place] % (Auto) 3.5, Eos % (Auto) 0.2, [...] 10/28/24 13:11 IMPRESSION: As above. Reading Location: [address] Chest X-Ray 10/28/24 14:10 IMPRESSION: Right PICC as above. Reading Location: [address] Assessment and Plan . Assessment and [...] Cosigner Signature (if applicable): CC: ~ Signed [facility] Work Phone: 1(825) 457-890209-08-2025 Progress note Author Kylee Rodriguez [facility] Note Date/Time October 29, 2024 9:58am [facility] Medical Records Department [address] [place] [address] Progress Note - Surgery 10/29/24 0952 MR#: [id number] Acct: [id number] Name: TAZ FOSTER Rep #:[id number] : 1935 89 From: Kylee FLOYD PA-C [...] 90.7 H, Lymph % (Auto) 3.5 L, [place] % (Auto) 3.5, Eos % (Auto) 0.2, [...] left lung base infiltrate/pleural fluid. Reading Location: [facility] Chest X-Ray 10/28/24 13:11 IMPRESSION: As above. Reading Location: [id number] Chest X-Ray 10/28/24 14:10 IMPRESSION: Right PICC as above. Reading Location: DPT-[id number]-IW Physical Exam GI GI Narrative: Abdomen- soft, [...] this patient Charges/Coding Visit Charges Inpatient E&M: 69054 Subs Hosp L2 10/29/2458 <Electronically signed by Kylee FLOYD PA-C> Cosigner Signature (if applicable): CC: ~ Signed [facility] Work Phone: 1([phone]) 240-309809-07-2025 Progress note Author Khai Bose [facility] Note Date/Time October 28, 2024 3:12pm [facility] Medical Records Department [address] [place] [address] Progress Note - Hospitalist 10/28/24 0824 MR#: [id number] Acct: [id number] Name: TAZ FOSTER Rep #:[id number] : 1935 89 From: Khai Nelson PCP: Dr. Dipak Aguilar, DO Status:AD M IN Location: ICU CVICU 1-1 Reason for Visit Chief Complaint: Abdominal [...] 90.7 H, Lymph % (Auto) 3.9 L, [place] % (Auto) 3.2, Eos % (Auto) 0.5, [...] Aguilar Performed By: Citlalli Arzate, ANUPAMA, RVT Physical Exam Narrative Seen and examined [...] reviewed in H&P. Surgeon is being consulted. Cogeneration Technician consulted. Urinary antigens, respiratory panel and MRSA nasal screen are negative. Liver chemistry shows normal transaminases alkaline phosphatase but total bilirubin 1.36 mildly elevated 9/7:No fever. Leukocytosis. With multiple comorbidities, there is [...] DNR-CC status. Charges/Coding Visit Charges Inpatient E&M: 21110 Subs Hosp L3 10/28/24 0935 <Electronically signed [...] NIPPV to help respiratory fatigue and tachypnea. Cogeneration Technician on board advised to call him. Till [...] (Auto) 70.9 H, Lymph % (Auto) 19.9, [place] % (Auto) 5.4, Eos % (Auto) 2.7, [...] Clarity Clear, Urine pH 6.5, Ur Specific [place] 1.010, Urine Protein 30 H, Urine Glucose [...] % (Auto) 59.9, Lymph % (Auto) 26.3, [place] % (Auto) 8.2, Eos % (Auto) 4.3, [...] Cosigner Signature (if applicable): cc: ~* Signed [facility] Work Phone: 1(565) 395-628309-07-2025 Consult note Author Jeffrey Guerrero [facility] Note Date/Time October 28, 2024 2:08pm [facility] Medical Records Department [address] [place] [address] [place] [address] Pharmacokinetic/Renal -Consult 10/28/24 1407 MR#: [id number] Acct: [id number] Name: TAZ FOSTER Rep #:[id number] : 1935 89 From: Jeffrey [facility]well [facility] PCP: Dr. Dipak Aguilar, DO Status:AD [...] 10/28/24 1408 <Electronically signed by Jeffrey Amado [facility]> Date _ Jeffrey Guerrero [facility] Cosigner Signature (if applicable): Date CC: ~ Signed [facility] Work Phone: 1(414) [phone] Progress note Author Kenn Cavazos [facility] Note Date/Time October 28, 2024 1:40pm [facility] Medical Records Department [address] [place] [address] Progress Note - Surgery 10/28/24 1335 MR#: [id number] Acct: [id number] Name: TAZ FOSTER Rep #:[id number] : 1935 89 From: Kenn Cavazos MD PCP: Dr. Dipak Aguilar, DO Status:AD M IN Location: ICU CVICU20 3-1 Subjective Subjective Patient seen and evaluated [...] 90.7 H, Lymph % (Auto) 3.9 L, Hernando % (Auto) 3.2, Eos % (Auto) 0.5, [...] left lung base infiltrate/pleural fluid. Reading Location: [facility] Physical Exam Narrative He is alert and [...] medical management Charges/Coding Visit Charges Inpatient E&M: 96379 Subs Hosp L3 10/28/24 1340 <Electronically signed by Kenn Cavazos MD> Cosigner Signature (if applicable): CC: ~ Signed [facility] Work Phone: 1(388) 280-196209-07-2025 Radiology Diagnostic study [facility]09-07-2025 Radiology Diagnostic study [facility]09-07-2025 Radiology Diagnostic study [facility] 10-27-2024 Consult note [facility] Note Date/Time October 27, 2024 3:19pm [facility] Medical Records Department [address] [place] [address] Consultation - Surgical 10/27/24 1454 MR#: [id number] Acct: [id number] Name: TAZ FOSTER Rep #:[id number] : 1935 89 From: Kenn Cavazos MD PCP: Dr. Dipak Aguilar, DO Status:AD M IN Location: ICU CVICU 3-1 Assessment & Plan Assessment/Plan (1) Sepsis: [...] for Consultation: Acute cholecystitis/cholelithiasis HPI Narrative: TAZ FOSTER, is a 89 M who presented yesterday afternoon to [facility] emergency department with abdominal pain that [...] he was hospitalized in the ICU in [place]. He was intubated I believe for about 5 days. He spent a month in the hospital and then went to rehab before returning to [place] in May. The patient was admitted to [...] being followed by medicine as well as english language learner teacher. 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 Reading Location: [facility] Gallbladder Ultrasound 10/26/24 18:37 IMPRESSION: 1. Distended gallbladder with gallstones, sludge, wall thickening and pericholecystic edema. Correlate clinically for signs of acute cholecystitis. 2. Mildly nodular liver contour with coarsened echotexture. This could represent early signs of hepatic cirrhosis. 3. Minimal ascites. Reading Location: [facility] Echocardiogram 10/27/24 00:32 Interpretation Summary The estimated ejection fraction is 70 %. The left atrium is mildly enlarged. The right atrium is mildly enlarged. Trivial mitral valve insufficiency. Ordering Physician: Fernanda Triplett Referring Physician: Dipak Aguilar Performed By: Citlalli Arzate, REBECACS, RVT 10/27/24 1519 <Electronically signed by Kenn Cavazos MD> Cosigner Signature (if applicable): CC: Dr. Dipak Aguilar, DO~ Signed [facility] Work Phone: 1(246) 656-668709-06-2025 Progress note Author Elaine Duenas [facility] Note Date/Time October 27, 2024 2:49pm [facility] Medical Records Department [address] [place] [address] Progress Note - Cogeneration Technician 10/27/24 1447 MR#: [id number] Acct: [id number] Name: TAZ FOSTER Rep #:[id number] : 1935 89 From: Elaine Nelson PCP: [...] mls @ 15 mls/hr 10/27/24 01:21 IV .[id number] PRN Saline Flush Sodium Chloride 250 mls @ 15 mls/hr 10/27/24 01:21 IV .[id number] PRN Additional IVPB Infusion Vancomycin HCl 750 mg/ Sodium 265 mls @ 250 mls/hr 10/27/24 13:30 10/27/24 14:00 Chloride IV Infused Q12H [facility] Infusion Albumin Human 25 gm in 100 mls @ 60 mls/hr 10/27/24 14:45 IV 10/27/24 18:04 .Q1H40M [facility] Diltiazem HCl 125 mg/ Dextrose 125 mls @ 5 mls/hr 10/27/24 14:45 IV .Q25H [facility] Protocol 5 MG/HR Dextrose/Lactated Ringer's 1,000 mls @ 75 mls/hr 10/27/24 14:45 IV .[id number] [facility] Insulin Human Lispro 0 unit 10/27/24 00:32 10/27/24 11:49 Insulin Lispro 100 Unit/Ml Insuln.Pen SC Not Given Q6 [facility] Protocol Ipratropium [place] 0.5 mg 10/27/24 00:32 10/27/24 11:40 Ipratropium 0.5 Mg/2.5 Ml Solution INHALATION 0.5 mg Q4HWA.RT [facility] Administration Melatonin 3 mg 10/27/24 00:32 Melatonin 3 Mg Tablet PO QHS PRN PRN INSOMNIA Metoprolol Tartrate 50 mg 10/27/24 10:00 10/27/24 08:31 Metoprolol Tartrate 50 Mg Tablet PO 50 mg BID [facility] Administration Protocol Metoprolol Tartrate 5 mg [...] Vancomycin Trough/Random Due [facility] 10/28/24 14:00 DAILY [facility] Lab / Micro Data 10/27/24 06:23 [...] 81.0 H, Lymph % (Auto) 10.5 L, Hernando % (Auto) 6.0, Eos % (Auto) 0.4, [...] 91.2 H, Lymph % (Auto) 3.1 L, Hernando % (Auto) 4.2, Eos % (Auto) 0.0, [...] 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 Reading Location: [id number] Gallbladder Ultrasound 10/26/24 18:37 IMPRESSION: 1. Distended gallbladder with gallstones, sludge, wall thickening and pericholecystic edema. Correlate clinically for signs of acute cholecystitis. 2. Mildly nodular liver contour with coarsened echotexture. This could represent early signs of hepatic cirrhosis. 3. Minimal ascites. Reading Location: [facility] Echocardiogram 10/27/24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 their system and metoprolol is covered by the patient's insurance. Evelio Jack RN [facility]04-10-2025 Telephone encounter Note* Telephone Encounter - Laura [...] above. Please process accordingly. Laura Theodore LPN [facility]04-10-2025 Miscellaneous Notes* Telephone Encounter - Laura Theodore [...] left for patient to return call to [facility] to review if medication needs to go to local pharmacy. Office phone number provided. Carly Lazo LPN * Telephone Encounter - Carly Lazo LPN - 05/30/2024 5:13 PM EDT Voicemail msg left for patient to return call to [facility] to review if medication needs to go to local pharmacy. Office phone number provided. Carly Lazo LPN documented in this encounterWayne [facility]04-10-2025 Telephone encounter Note * Telephone Encounter - [...] above. Please process accordingly. Laura Theodore LPN [facility]04-10-2025 Miscellaneous Notes* Telephone Encounter - Laura Theodore [...] left for patient to return call to [facility] to review if medication needs to go to local pharmacy. Office phone number provided. Carly Lazo LPN * Telephone Encounter - Carly Lazo LPN - 05/30/2024 5:10 PM EDT Voicemail msg left for patient to return call to [facility] to review if medication needs to go to local pharmacy. Office phone number provided. Carly Lazo LPN documented in this encounterWayne [facility]04-10-2025 Telephone encounter Note * Telephone Encounter - Carly Lazo LPN - 05/31/2024 8:53 AM EDT Voicemail msg left for patient to return call to [facility] to review if medication needs to go to local pharmacy. Office phone number provided. Carly Lazo LPN [facility]04-10-2025 Telephone encounter Note* Telephone Encounter - Carly Lazo LPN - 05/31/2024 8:52 AM EDT Voicemail msg left for patient to return call to [facility] to review if medication needs to go to local pharmacy. Office phone number provided. Carly Lazo LPN [facility]04-10-2025 Telephone encounter Note* Telephone Encounter - Elisa Garcia APRN.ESTIVEN - 05/31/2024 8:05 AM EDT I apologize, [...] - Controlled E11.9 Insulin: Yes Elisa Garcia APRN.[employer] [facility]04-10-2025 Miscellaneous Notes* Telephone Encounter - Elisa Garcia [...] Yes Elisa Garcia APRN.CNP documented in this encounterWayne [facility]04-09-2025 Telephone encounter Note * Telephone Encounter - Carly Lazo LPN - 05/30/2024 5:13 PM EDT Voicemail msg left for patient to return call to [facility] to review if medication needs to go to local pharmacy. Office phone number provided. Carly Lazo LPN [facility]04-09-2025 Telephone encounter Note* Telephone Encounter - Carly Lazo LPN - 05/30/2024 5:10 PM EDT Voicemail msg left for patient to return call to [facility] to review if medication needs to go to local pharmacy. Office phone number provided. Carly Lazo LPN [facility]04-09-2025 Instructions* Patient Instructions* Elisa Garcia APRN.CNP - 05/30/2024 3:11 PM EDT Start the [...] for his next appt. documented in this encounterWayne Healthcare [facility]04-09-2025 NoteHNO ID: [id number] Author: ELISA GARCIA APRN.ESTIVEN Service: ? Author Type: Nurse Practitioner Type: Progress Notes Filed: 05/30/2024 18:37 Note Text: Chief Complaint Patient presents with: Follow Up: Kelley leg swelling and elevated BP HPI Taz Foster is a 89 year old male [...] GERD (gastroesophageal reflux disease) Melanoma (HCC) 1990 [place] Persistent atrial fibrillation (HCC) 10/11/2019 Admitted 09/05/2019 [facility]. Followed by [facility]. Previous Surgical History PAST SURGICAL [...] Rotator cuff repair - bilateral [facility] PAST SURGICAL HISTORY OF plastic surgery [...] Family History Patient Allergies ALLERGIES Allergen Reactions Canones Other: See Comments sneezing,runny nose Yazoo Cough also [place] with same reaction Mold [...] use: No Review o (more content not included)...[facility]04-09-2025 History of Present illness Narrative* Elisa Garcia APRN.[employer] - 05/30/2024 2:38 PM EDT Chief Complaint Patient presents with: Follow Up: Kelley leg swelling and elevated BP HPI Taz Foster is a 89 year old male [...] GERD (gastroesophageal reflux disease) Melanoma (HCC) 1991 [place] Persistent atrial fibrillation (HCC) 10/11/2019 Admitted 09/05/2019 [facility]. Followed by [facility]. Previous Surgical History PAST SURGICAL [...] Rotator cuff repair - bilateral [facility] PAST SURGICAL HISTORY OF plastic surgery [...] Family History Patient Allergies ALLERGIES Allergen Reactions Canones Other: See Comments sneezing,runny nose Yazoo Cough also [place] with same reaction Mold [...] 05/30/2024 Time: 6:36 PM documented in this encounterWayne [facility]04-08-2025 Telephone encounter Note * Telephone Encounter - Dipak Aguilar DO - 05/29/2024 4:53 PM EDT Will forward to [facility] to review with /patient at office visit tomorrow Dipak Aguilar DO [facility]04-08-2025 Miscellaneous Notes* Telephone Encounter - Dipak Aguilar DO - 05/29/2024 4:53 PM EDT Will forward to [facility] to review with /patient at office visit tomorrow Dipak Aguilar DO * Telephone Encounter - Maryan Torres RN - 05/24/2024 10:34 AM EDT Patient's [...] from his time acute rehab facility in [place] for hydralazine 25 mg QID as needed for systolic BP >150. states that she dis not give hydralazine today. Please advise if patient needs to keep taking lasix and about hydralazine prescription. Medication is not listed on patient's medications. Please review and advise, Maryan Torres RN documented in this encounterWayne [facility]04-03-2025 Telephone encounter Note * Telephone Encounter - Maryan Torres RN - 05/24/2024 10:34 AM EDT Patient's [...] from his time acute rehab facility in [place] for hydralazine 25 mg QID as needed for systolic BP >150. states that she dis not give hydralazine today. Please advise if patient needs to keep taking lasix and about hydralazine prescription. Medication is not listed on patient's medications. Please review and advise, Maryan Torres RN [facility]04-01-2025 Telephone encounter Note* Telephone Encounter - Carrie Del Angel MA - 05/22/2024 4:33 PM EDT Martina informed Carrie Del Angel MA [facility]04-01-2025 Miscellaneous Notes* Telephone Encounter - Carrie Del Angel MA - 05/22/2024 4:33 PM EDT Martina informed Carrie Del Angel MA * Telephone Encounter - Elisa Garcia APRN.CNP - 05/22/2024 2:55 PM EDT Thank you for the update, agree with below. Elisa Garcia APRN.ESTIVEN * Telephone Encounter - Mira Larkin RN - 05/22/2024 2:24 PM EDT See below note as well from assisted. Martina physical therapist from [facility] calling today toupdate PT plan [...] Hydralazine on hand prescribed by hospital in [place] when he was admitted. Pt is to [...] - 05/21/2024 2:28 PM EDT Moira with [facility] calling with Nursing plan of care. HH Nursing will see patient 2 times per week for 1 week , then one time per week for 2 weeks for COPD education, edema monitoring and A-Fib management. No call back needed if provider is agreeable to plan. Gabrielle Friedman RN documented in this encounterWayne [facility]04-01-2025 Telephone encounter Note * Telephone Encounter - Elisa Garcia APRN.[facility] - 05/22/2024 2:55 PM EDT Thank you for the update, agree with below. Elisa Garcia APRN.[employer] [facility]04-01-2025 Telephone encounter Note* Telephone Encounter - Mira Larkin RN - 05/22/2024 2:24 PM EDT See below note as well from assisted. Martina physical therapist from [facility] calling today toupdate PT plan [...] the following BP readings: 150/90 159/103 156/115 30[address] 160/114 st 145/107 Today 163/103 Per Martina, pt has Hydralazine on hand prescribed by hospital in [place] when he was admitted. Pt is to [...] leg swelling are doing. She verbalizes understanding. [facility]03-31-2025 Telephone encounter Note* Telephone Encounter - Gabrielle Friedman RN - 05/21/2024 2:28 PM EDT Moira with [facility] calling with Nursing plan of care. Nursing will see patient 2 times per week for 1 week , then one time per week for 2 weeks for COPD education, edema monitoring and A-Fib management. No call back needed if provider is agreeable to plan. Gabrielle Friedman RN [facility]03-27-2025 Telephone encounter Note* Telephone Encounter - Kylee Fraser RN - 05/17/2024 3:11 PM EDT [facility] called and asked to have last OV noted faxed over. Faxed to fax # [phone]. [facility]03-27-2025 Miscellaneous Notes* Telephone Encounter - Kylee Fraser RN - 05/17/2024 3:11 PM EDT [facility] called and asked to have last OV noted faxed over. Faxed to fax # [phone]. documented in this encounterWayne Healthcare [facility]03-27-2025 Telephone encounter Note * Telephone Encounter - Monica Vernon LPN - 05/17/2024 10:14 AM EDT Spoke with patients daughter gave information provided . She voices understanding. She wishes to filler picker order for the stair lift . Took to old med recs for filler picker. [facility]03-27-2025 Miscellaneous Notes* Telephone Encounter - Monica Vernon LPN - 05/17/2024 10:14 AM EDT Spoke with patients daughter gave information provided . She voices understanding. She wishes to filler picker order for the stair lift . Took to old [facility] for filler picker. * Telephone Encounter - Radha Berman APRN.[employer] - 05/17/2024 8:08 AM EDT Please call [...] 40 minutes. 05/30/24. Thank you, Radha Berman APRN.[employer] documented in this encounterWayne Healthcare [facility]03-27-2025 NoteHNO ID: [id number] Author: ANANYA RODRIGUEZ RDMS Service: ? Author Type: Template Reproduction Technician Type: Progress Notes Filed: 05/18/2024 08:17 Note Text: Radiology Service Progress Note PATIENT NAME: Taz Foster DATE OF SERVICE: May 18, 2024 [...] PATIENT PRESENTS WITH AN IMPLANTABLE OR ATTACHED OLDER ADULT SOCIAL WORK SPECIALIST: No RADIOLOGY DEPARTMENT: Ultrasound PERIPHERAL IV DATA: Not applicable SIGNED BY: Ananya Rodriguez RDMS RVAnne Marie May 18, 2024 8:17 [facility]03-27-2025 Telephone encounter Note* Telephone Encounter - Radha Berman APRN.[employer] - 05/17/2024 8:08 AM EDT Please call [...] 40 minutes. 05/30/24. Thank you, Radha Berman APRN.[employer] [facility]03-26-2025 History of Present illness Narrative* Radha Berman APRN.[employer] - 05/16/2024 1:00 PM EDT Chief Complaint Patient presents with: needs referral for pt and ot and uology referral HPI Taz Foster is a 89 year old male who presents here today for Above Complaints. Taz is an established patient of Dr. Jeff DO. Pt was admitted to [facility] in [place] on 04/13 and 04/15. 04/13-- dx with [...] facility on 05/11 and drove back to [place] with and daughter. Hx of CVA in December. Never followed up with neurology d/t going to [place] for the winter months just after this. [...] Family reports legs elevated entire drive from [place] Denies any SOB. Pt is on eliquis since stroke. Needs assistance at home. Currently lives at home back in [place] with . Daughter lives nearby to help. Does not want to move into assistive living or [facility]. Daughter agrees if they can get PT, OT, home health aide, and usp to come to home, he should be [...] on any diuretic. Traveled by car from [place] to [place] yesterday. Reports having legs elevated during the [...] GERD (gastroesophageal reflux disease) Melanoma (HCC) 1991 [place] Persistent atrial fibrillation (HCC) 10/11/2019 Admitted 09/05/2019 [facility]. Followed by [facility]. Previous Surgical History PAST SURGICAL [...] Rotator cuff repair - bilateral [facility] PAST SURGICAL HISTORY OF plastic surgery [...] Family History Patient Allergies ALLERGIES Allergen Reactions Canones Other: See Comments sneezing,runny nose Yazoo Cough also [place] with same reaction Mold [...] Completed Pneumococcal Vaccine: 50+ Completed Data reviewed [facility] admissions [facility] Discharge Summary -- scanned into chart. ASSESSMENT/PLAN: 1. Hospital discharge follow-up - ICD9: V67.59, ICD10: Z09 (primary diagnosis) Lab work as below. US DVT and start short burst of lasix, see below plan. Pt needs more assistance in home, see below plan. - [facility] - PATIENT LIFT, ELECTRIC - FUROSEMIDE 20 MG TABLET - COMPREHENSIVE METABOLIC PANEL - COMPLETE BLOOD COUNT AND DIFFERENTIAL - HEMOGLOBIN A1C - LIPID PANEL, FASTING - THYROID STIMULATING HORMONE - CONSULT TO NEUROLOGY - NT PRO BNP - US DVT LOWER BILATERAL - PATIENT LIFT, ELECTRIC 2. Asthma-COPD overlap syndrome (HCC) - ICD9: 493.20, ICD10: J44.89 Improvement. - [facility] - PATIENT LIFT, ELECTRIC - PATIENT LIFT, ELECTRIC 3. Chronic respiratory failure with hypoxia (HCC) - ICD9: 518.83, 799.02, ICD10: J96.11 Improving since discharge. - [facility] - PATIENT LIFT, ELECTRIC - PATIENT LIFT, ELECTRIC 4. Decreased activities of daily living (ADL) - ICD9: V49.89, ICD10: Z78.9 Needs assistance at home with bathing, medication management, PT, and OT. Ordered usp, PT, OT, and home health aide to [facility]. Pt will reach out by Bruna if they do not hear anything from [facility]. - [facility] - PATIENT LIFT, ELECTRIC - PATIENT LIFT, ELECTRIC 5. Bilateral leg edema - ICD9: 782.3, ICD10: R60.0 US DVT d/t recent long car travel from [place]. L much more swollen than R. Lasix rx x 3 days and then let us know via mychart if swelling returns within a week. RTO in 2 weeks with Elisa to reassess swelling and lab work. May need to consider daily diuretic. - [facility] - PATIENT LIFT, [...] Needs assistance at home. Ordered PT, OT, usp, and home health aide. Mechanical lift chair [...] Needs assistance at home. Ordered PT, OT, usp, and home health aide. Mechanical lift chair up stairs needed x2 to help independence d/t still living at home with . Long discussion about considering assisted living or [facility] if unable to manage with all of these assisted resources. Daughter agrees but does not think this is needed at the moment. - PATIENT LIFT, ELECTRIC Corinne Barrera RTO in 2 weeks with Elisa and [...] coordinating care and coordinating care. Radha Berman APRN.[employer] [address] [place] [address] documented in this encounterWayne Healthcare Main Campus03-26-2025 NoteHNO ID: [id number] Author: RADHA BERMAN APRN.CNP Service: ? Author Type: Nurse Practitioner Type: Progress Notes Filed: 05/16/2024 18:48 Note Text: Chief Complaint Patient presents with: needs referral for pt and ot and uology referral HPI Taz Foster is a 89 year old male who presents here today for Above Complaints. Taz is an established patient of Dr. Jeff DO. Pt was admitted to [facility] in [place] on 04/13 and 04/15. 04/13-- dx with [...] facility on 05/11 and drove back to [place] with and daughter. Hx of CVA in December. Never followed up with neurology d/t going to [place] for the winter months just after this. [...] Family reports legs elevated entire drive from [place] Denies any SOB. Pt is on eliquis since stroke. Needs assistance at home. Currently lives at home back in [place] with . Daughter lives nearby to help. Does not want to move into assistive living or [facility]. Daughter agrees if they can get PT, OT, home health aide, and usp to come to home, he should be [...] on any diuretic. Traveled by car from [place] to [place] yesterday. Reports having legs elevated during the [...] GERD (gastroesophageal reflux disease) Melanoma (HCC) 1991 [place] [facility] Persistent atrial fibrillation (HCC) 10/11/2019 Admitted 09/05/2019 [facility]. Followed by [facility]. Previous Surgical History PAST SURGICAL HISTORY [...] ACUTE 2004 B, (more content not included)... [facility]12-17-2024 Telephone encounter Note* Telephone Encounter - Heather Bennett MA - 02/07/2024 10:50 AM EST Patient phones requesting refills as follows: Requested Prescriptions Pending Prescriptions Disp Refills ELIQUIS 5 mg tab(s) [Pharmacy Med Name: ELIQUIS TAB 5MG] 180 tablet 0 Sig: TAKE 1 TABLET TWICE A DAY Please review and advise. Heather Bennett MA [facility]12-17-2024 Miscellaneous Notes* Telephone Encounter - Heather Bennett MA - 02/07/2024 10:50 AM EST Patient phones requesting refills as follows: Requested Prescriptions Pending Prescriptions Disp Refills ELIQUIS 5 mg tab(s) [Pharmacy Med Name: ELIQUIS TAB 5MG] 180 tablet 0 Sig: TAKE 1 TABLET TWICE A DAY Please review and advise. Heather Bennett MA documented in this encounterWayne Healthcare Main Campus12-10-2024 Telephone encounter Note * Telephone Encounter - Evelio Jack RN - 01/31/2024 1:16 PM EST Patient called and given the below results. Evelio Jack RN [facility]12-10-2024 Miscellaneous Notes* Telephone Encounter - Evelio Jack [...] Please inform patient mar documented in this encounterWayne Healthcare Main Campus12-10-2024 Telephone encounter Note * Telephone Encounter - Evelio Jack RN - 01/31/2024 1:10 PM EST ----- Message from Denae Villareal RN sent at 01/31/2024 12:47 PM EST ----- ----- Message ----- From: Analisa Nicole MD Sent: 01/31/2024 11:59 AM EST To: Denae Poole RN Normal stress Please inform patient mar [facility]11-19-2024 Telephone encounter Note* Telephone Encounter - Laura Bejarano LPN - 01/10/2024 4:32 PM EST Pt. informed. [facility]11-19-2024 Miscellaneous Notes* Telephone Encounter - Laura Johns [...] pharmacy in its place. Pt is [facility] wanting this called to [facility] in [place] on [address] . documented in this encounterWayne Healthcare Main Campus11-19-2024 Telephone encounter Note * Telephone Encounter - [...] at bedtime. Authorizing Provider: DIPAK AGUILAR DO [facility]11-18-2024 Telephone encounter Note* Telephone Encounter - Monica Vernon LPN - 01/09/2024 1:22 PM EST Pt calls states has been trying to take the atorvastatin but keeps getting terrible diarrhea. Asking if something different could be called into pharmacy in its place. Pt is [facility] wanting this called to [facility] in [place] on [address] . [facility]11-13-2024 Telephone encounter Note* Telephone Encounter - Jacob Escobar - 01/04/2024 2:52 PM EST Clearance scanned in from [facility] placed in Dr. Mar meade to be reviewed. Jacob Escobar January 04, 2024 2:53 PM [facility]11-13-2024 Miscellaneous Notes* Telephone Encounter - Jacob Escobar - 01/04/2024 2:52 PM EST Clearance scanned in from [facility] placed in Dr. Mar meade to be reviewed. Jacob Escobar January 04, 2024 2:53 PM documented in this encounterWayne Healthcare Main Campus10-22-2024 Telephone encounter Note * Telephone Encounter - Elisa Garcia APRN.CNP - 12/13/2023 1:33 PM EDT Noted, thank you. Elisa Garcia APRN.ESTIVEN [facility]10-22-2024 Miscellaneous Notes* Telephone Encounter - Elisa Garcia APRN.CNP - 12/13/2023 1:33 PM EDT Noted, thank you. Elisa Garcia APRN.ESTIVEN * Telephone Encounter - Genia Varner MA - 12/13/2023 8:52 AM EDT Pt notified. He received an email from the [facility] but states he leaves tomorrow for [place] for 6 months and will call to [...] nodule clinic, so I am placing this. Ibcodyeve they will call him to schedule his appointment. Otherwise everything else looks good. Elisa Garcia APRN.ESTIVEN documented in this encounterWayne Healthcare Main Campus10-22-2024 Telephone encounter Note * Telephone Encounter - Genia Varner MA - 12/13/2023 8:52 AM EDT Pt notified. He received an email from the lung nodule clinic but states he leaves tomorrow for [place] for 6 months and will call to set up appt when he returns. Genia Varner MA [facility]10-22-2024 Telephone encounter Note* Telephone Encounter - Elisa [...] everything else looks good. Elisa Garcia APRN.ESTIVEN [facility]10-21-2024 NoteHNO ID: [id number] Author: EVELIO JACK RN Service: ? Author [...] Evelio Jack RN Reversal agent used:None LOT [id number] EXP 06/16 IV SITE: IV palced by nuclear tecnologist POST EXAM PIV STATUS: Discontinued by Orchid Transplanter PATIENT DISCHARGED TO: Nuclear Medicine Department for post stress imaging A Diagnostic radioactive procedure has taken place, with no further precautions necessary other than routine body substance precautions. More information regarding radiation safety can be found using this link: [email or web address] 20Diagnostic%20Nuclear%20Medicine%20Procedures.pdf SIGNATURE: Evelio Jack RN PATIENT NAME:Taz Foster DATE: 12/12/23 TIME: 3:56 [facility]10-21-2024 History of Present illness Narrative* Evelio Jack [...] Evelio Jack RN Reversal agent used:None LOT [id number] EXP 06/16 IV SITE: IV palced by nuclear tecnologist POST EXAM PIV STATUS: Discontinued by Orchid Transplanter PATIENT DISCHARGED TO: Nuclear Medicine Department for post stress imaging A Diagnostic radioactive procedure has taken place, with no further precautions necessary other than routine body substance precautions. More information regarding radiation safety can be found usingthis link: [email or web address] 20Diagnostic%20Nuclear%20Medicine%20Procedures.pdf SIGNATURE: Evelio Jack RN PATIENT NAME:Taz Foster DATE: 12/12/23 TIME: 3:56 PM documented in this encounterWayne Healthcare Main Campus10-21-2024 History of Present illness Narrative* Nessa Ingram RT(R) - 12/12/2023 10:00 AM EDT RADIOLOGY [...] PATIENT PRESENTS WITH AN IMPLANTABLE OR ATTACHED OLDER ADULT SOCIAL WORK SPECIALIST: n/a CREATININE: Creatinine Date Value Ref Range [...] POST EXAM PIV STATUS: Discontinued PROCEDURE TYPE: GA Stress: 8.7 mCi Kj42o-Njjlmjo was administered IV for Rest Imaging at 10:03 by Nessa Ingram. 28.4 mCi Vt76h-Qweaniz was administered IV for Stress Imaging at 11:37 by Nessa Ingram. PATIENT DISCHARGED TO: Ambulatory patient, left GA department area.. A Diagnostic radioactive procedure has taken place, with no further precautions necessary other than routine body substance precautions. More information regarding radiation safety can be found usingthis link: [email or web address]%[email or web address]-% 20Diagnostic%20Nuclear%20Medicine%20Procedures.pdf SIGNATURE: DALTON Cardona) PATIENT NAME: Taz Foster DATE: December 12, 2023 TIME: 12:35 AM PAGER/CONTACT #: documented in this encounterWayne Healthcare Main Campus10-21-2024 NoteHNO ID: [id number] Author: NESSA INGRAM RT (R) Service: Nuclear [...] PATIENT PRESENTS WITH AN IMPLANTABLE OR ATTACHED OLDER ADULT SOCIAL WORK SPECIALIST: n/a CREATININE: Creatinine Date Value Ref Range [...] Discontinued PROCEDURE TYPE: [place] Stress: 8.7 mCi Mu07k-Tvnwivp was administered IV for Rest Imaging at 10:03 by Nessa Ingram. 28.4 mCi Ob19p-Dmxrsvk was administered IV for Stress Imaging at 11:37 by Nessa Ingram. PATIENT DISCHARGED TO: Ambulatory patient, left GA department area.. A Diagnostic radioactive procedure has taken place, with no further precautions necessary other than routine body substance precautions. More information regarding radiation safety can be found using this link: [email or web address] 20Diagnostic%20Nuclear%20Medicine%20Procedures.pdf SIGNATURE: RT Dulce(R) PATIENT NAME: Taz Foster DATE: December 12, 2023 TIME: 12:35 AM PAGER/CONTACT #:[facility]10-21-2024 Telephone encounter Note* Telephone Encounter - Ananya Carter LPN - 12/12/2023 8:12 AM EDT Patient has a stress test this morning at 10am. He mistakenly took his Atorvastatin and was not sure if he should reschedule. He is leaving out of state for 6 months on Tuesday as well. Please callpatient back at [phone]. Ananya Carter LPN [facility]10-21-2024 Miscellaneous Notes* Telephone Encounter - Ananya Carter LPN - 12/12/2023 8:12 AM EDT Patient has a stress test this morning at 10am. He mistakenly took his Atorvastatin and was not sure if he should reschedule. He is leaving out of state for 6 months on Tuesday as well. Please callpatient back at [phone]. Ananya Carter LPN documented in this encounterWayne Healthcare Main Campus10-15-2024 Telephone encounter Note * Telephone Encounter - Jair Ziegler MA - 12/06/2023 10:38 AM EDT Patient active MyChart. Patient notified via [employer] message. Jair Ziegler MA [facility]10-15-2024 Miscellaneous Notes* Telephone Encounter - Jair Ziegler MA - 12/06/2023 10:38 AM EDT Patient active MyChart. Patient notified via [employer] message. Jair Ziegler MA * Telephone Encounter - Dipak Aguilar DO - 12/06/2023 9:42 AM EDT Please inform patient that his iron levels are normal Dipak Aguilar DO documented in this encounterWayne Healthcare Main Campus10-15-2024 Telephone encounter Note * Telephone Encounter - Dipak Aguilar DO - 12/06/2023 9:42 AM EDT Please inform patient that his iron levels are normal Dipak Aguilar DO [facility]10-14-2024 NoteHNO ID: [id number] Author: LAVERN BLAKELY RPFT Service: ? Author Type: Respiratory Therapist Type: Progress Notes Filed: 12/05/2023 13:32 Note Text: PULM FUNCTION: Provider: Elisa Garcia APRN.[employer] Assisting Tech: PetClaribel crockersea, RPFT Spirometry w/BD: 1 LV - Box[facility] History of Present illness Narrative* Lavern Blakely RPFT - 12/05/2023 1:31 PM EDT PULM FUNCTION: Provider: Elisa Garcia APRN.[employer] Assisting Tech: PetClaribel crockersea, RPFT Spirometry w/BD: 1 LV - Box: 1 documented in this encounterWayne Healthcare Main Campus10-14-2024 History of Present illness Narrative* Amandeep Calderon RT(Bel) - 12/05/2023 11:40 AM EDT Radiology Service Progress Note PATIENT NAME: Taz Foster DATE OF SERVICE: December 05, 2023 [...] PATIENT PRESENTS WITH AN IMPLANTABLE OR ATTACHED OLDER ADULT SOCIAL WORK SPECIALIST: No RADIOLOGY DEPARTMENT: CT; Exam(s) Completed: Chest PERIPHERAL IV DATA: Not applicable SIGNED BY: RT Radha(Bel) December 05, 2023 2:42 PM documented in this encounterWayne Healthcare Main Campus10-14-2024 NoteHNO ID: [id number] Author: AMANDEEP CALDERON RT(R) Service: ? Author Type: Data Management Consultant Type: Progress Notes Filed: 12/05/2023 14:42 Note Text: Radiology Service Progress Note PATIENT NAME: aTz Foster DATE OF SERVICE: December 05, 2023 [...] PATIENT PRESENTS WITH AN IMPLANTABLE OR ATTACHED OLDER ADULT SOCIAL WORK SPECIALIST: No RADIOLOGY DEPARTMENT: CT; Exam(s) Completed: Chest PERIPHERAL IV DATA: Not applicable SIGNED BY: RT Radha(Bel) December 05, 2023 2:42 PMCRegency [facility]10-08-2024 NoteHNO ID: [id number] Author: ELISA GARCIA APRN.CNP Service: ? Author Type: Nurse Practitioner Type: Progress Notes Filed: 11/29/2023 12:42 Note Text: Chief Complaint Patient presents with: Medicare Wellness Exam HPI Taz Foster is a 88 year old male [...] his doctor during the winter months in [place]. States they always say everything is fine. [...] GERD (gastroesophageal reflux disease) Melanoma (HCC) 1991 [place] [facility] Persistent atrial fibrillation (HCC) 10/11/2019 Admitted 09/05/2019 [facility]. Followed by [facility]. Previous Surgical History PAST SURGICAL [...] Rotator cuff repair - bilateral [facility] PAST SURGICAL HISTORY OF plastic surgery [...] Family History Patient Allergies ALLERGIES Allergen Reactions Canones Other: See Comments sneezing,runny nose Yazoo Cough also cyprus with same reaction Mold [...] distress, well-hydrated, well nour (more content not included)...[facility]10-08-2024 History of Present illness Narrative* Elisa Garcia APRN.[employer] - 11/29/2023 7:31 AM EDT Chief Complaint Patient presents with: Medicare Wellness Exam HPI Taz Foster is a 88 year old male [...] his doctor during the winter months in [place]. States they always say everything is fine. [...] GERD (gastroesophageal reflux disease) Melanoma (HCC) 1991 [place] [facility] Persistent atrial fibrillation (HCC) 10/11/2019 Admitted 09/05/2019 [facility]. Followed by [facility]. Previous Surgical History PAST SURGICAL [...] 2011 L Rotator cuff repair - bilateral [facility] PAST SURGICAL HISTORY OF plastic surgery [...] Family History Patient Allergies ALLERGIES Allergen Reactions Canones Other: See Comments sneezing,runny nose Yazoo Cough also cyprus with same reaction Mold [...] ICD10: Z13.39 - ANXIETY SCREENING Elisa Garcia APRN.ESTIVEN * Elisa Garcia APRN.[employer] - 11/29/2023 7:13 AM EDT Images from the original note were not included. Taz Foster is a 88 year old male [...] Personalized prevention plan provided documented in this encounterWayne Healthcare Main Campus10-08-2024 NoteHNO ID: [id number] Author: ELISA GARCIA APRN.CNP Service: ? Author Type: Nurse Practitioner Type: Progress Notes Filed: 11/29/2023 12:42 Note Text: Taz Foster is a 88 year old male [...] avoidance information provided - Personalized [facility] plan provided[facility] [place] History of Present illness Narrative* Jeffrey Zurita MD - 11/23/2023 8:40 AM EDT Images from the original note were not included. CONSULT ORTHOPAEDIC: HIP PRIMARY CARE PHYSICIAN: iDpak Aguilar DO REFERRING PROVIDER: No referring provider [...] severe depression Bone Density Risk Screen Taz Foster is at risk for bone loss [...] SUBJECTIVE CHIEF COMPLAINT: Hip Pain HPI: Taz Foster is a 88 year old patient . Taz Foster has had progressive problems with the [...] GERD (gastroesophageal reflux disease) Melanoma (HCC) 1991 [place] [facility] Persistent atrial fibrillation (HCC) 10/11/2019 Admitted 09/05/2019 [facility]. Followed by [facility]. PAST SURGICAL HISTORY Procedure Laterality [...] 2012 L Rotator cuff repair - bilateral [facility] PAST SURGICAL HISTORY OF plastic surgery [...] Comment: occassional-once weekly Drug use: No ALLERGIES: Canones, Yazoo, and Mold MEDICATIONS: metoprolol tartrate, short acting, [...] which included preparing to see the patient, [id number] patient care, completing clinical documentation, obtaining and/or reviewing separately obtained history, performing a medically appropriate examination, counseling and educating the patient/family/caregiver, ordering medications, tests, or procedures, communicating withother HCPs (not separately reported), independently interpreting results (not separately reported),communicating results to the patient/family/caregiver, and care coordination (not separately reported). SIGNATURE: Jeffrey Zurita MD PATIENT NAME: Taz Foster DATE: November 23, 2023 TIME: 8:05 AM documented in this encounterWayne Healthcare Main Campus10-02-2024 NoteHNO ID: [id number] Author: JEFFREY ZURITA MD Service: ? Author [...] severe depression Bone Density Risk Screen Taz Foster is at risk for bone loss [...] SUBJECTIVE CHIEF COMPLAINT: Hip Pain HPI: Taz Fostre is a 88 year old patient . Taz Foster has had progressive problems with the [...] as raking leaves, weeding (more content not included)...[facility]10-02-2024 History of Present illness Narrative* Debra Fisher Tech - 11/23/2023 8:10 AM EDT Radiology Service Progress Note PATIENT NAME: Taz Foster DATE OF SERVICE: November 23, 2023 [...] PATIENT PRESENTS WITH AN IMPLANTABLE OR ATTACHED OLDER ADULT SOCIAL WORK SPECIALIST: No RADIOLOGY DEPARTMENT: General X-ray: Exam(s) Completed: Pelvis X-Ray: Pelvis with Hip Bilateral andWt. Bearing Lower Extremity X-Ray(s): Knee, AP / Lat / Tunne / Merchant Right and Wt. Bearing PERIPHERAL IV DATA: Not applicable SIGNED BY: Anat Alarcon November 23, 2023 7:46 AM * Debra Fisher Tech - 11/23/2023 8:10 AM EDT Radiology Service Progress Note PATIENT NAME: Taz Foster DATE OF SERVICE: November 23, 2023 [...] PATIENT PRESENTS WITH AN IMPLANTABLE OR ATTACHED OLDER ADULT SOCIAL WORK SPECIALIST: No RADIOLOGY DEPARTMENT: General X-ray: Exam(s) Completed: Spine X-Ray(s): Lumbar AP / LAT PERIPHERAL IV DATA: Not applicable SIGNED BY: Anat Alarcon November 23, 2023 8:59 AM documented in this encounterWayne Healthcare Main Campus10-02-2024 NoteHNO ID: [id number] Author: DEBRA FISHER Tech Service: ? Author Type: Data Management Consultant Type: Progress Notes Filed: 11/23/2023 07:47 Note Text: Radiology Service Progress Note PATIENT NAME: Taz Foster DATE OF SERVICE: November 23, 2023 [...] PATIENT PRESENTS WITH AN IMPLANTABLE OR ATTACHED OLDER ADULT SOCIAL WORK SPECIALIST: No RADIOLOGY DEPARTMENT: General X-ray: Exam(s) Completed: Pelvis X-Ray: Pelvis with Hip Bilateral and Wt. Bearing Lower Extremity X-Ray(s): Knee, AP / Lat / Tunne / Merchant Right and Wt. Bearing PERIPHERAL IV DATA: Not applicable SIGNED BY: Anat Alarcon November 23, 2023 7:46 AMTrinity Health System West [id number] NoteHNO ID: [id number] Author: DEBRA FISHER Tech Service: ? Author Type: Data Management Consultant Type: Progress Notes Filed: 11/23/2023 08:59 Note Text: Radiology Service Progress Note PATIENT NAME: Taz Foster DATE OF SERVICE: November 23, 2023 [...] PATIENT PRESENTS WITH AN IMPLANTABLE OR ATTACHED OLDER ADULT SOCIAL WORK SPECIALIST: No RADIOLOGY DEPARTMENT: General X-ray: Exam(s) Completed: Spine X-Ray(s): Lumbar AP / LAT PERIPHERAL IV DATA: Not applicable SIGNED BY: Anat Alarcon November 23, 2023 8:59 AMTrinity Health System West [id number] Telephone encounter Note* Telephone Encounter - Denae Poole RN - 11/14/2023 9:08 AM EDT Patient's request for medication is as follows: Requested Prescriptions Pending Prescriptions Disp Refills metoprolol tartrate, short acting, (LOPRESSOR) 50 mg tablet 180 tablet 3 Sig: Take 1 tablet by mouth two times a day. Last visit 09/12/23. Next visit 07/02/24. Prescription(s) as above. Please process accordingly. Denae Poole RN [facility]09-23-2024 Miscellaneous Notes* Telephone Encounter - Denae Poole [...] accordingly. Denae Poole RN documented in this encounterWayne Healthcare Main Campus09-11-2024 Telephone encounter Note * Telephone Encounter - Dipak Aguilar DO - 11/02/2023 11:35 AM EDT Labs ordered Dipak Aguilar DO [facility]09-11-2024 Miscellaneous Notes* Telephone Encounter - Dipak Aguilar DO - 11/02/2023 11:35 AM EDT Labs ordered Dipak Aguilar DO documented in this encounterWayne Healthcare Main Campus09-10-2024 Telephone encounter Note * Telephone Encounter - Mona Mayen MA - 11/01/2023 1:00 PM EDT Patient phones requesting refills as follows: Requested Prescriptions Pending Prescriptions Disp Refills apixaban (ELIQUIS) 5 mg tab(s) 180 tablet 3 Sig: Take 1 tablet by mouth two times a day. [facility]ur 08/31/2022 Nov Not scheduled Labs 10/2022 Please review and advise. Mona Mayen MA [facility]09-10-2024 Miscellaneous Notes* Telephone Encounter - Mona Mayen MA - 11/01/2023 1:00 PM EDT Patient phones requesting refills as follows: Requested Prescriptions Pending Prescriptions Disp Refills apixaban (ELIQUIS) 5 mg tab(s) 180 tablet 3 Sig: Take 1 tablet by mouth two times a day. Mayur 08/31/2022 Nov Not scheduled Labs 10/2022 Please review and advise. Mona Mayen MA documented in this encounterWayne Healthcare Main Campus08-16-2024 Telephone encounter Note * Telephone Encounter - Carrie Del Angel MA - 10/07/2023 9:18 AM EDT Pt informed. Taken to med rec. Carrie Del Angel MA [facility]08-16-2024 Miscellaneous Notes* Telephone Encounter - Carrie Del Angel MA - 10/07/2023 9:18 AM EDT Pt informed. Taken to med rec. Carrie Del Angel MA * Telephone Encounter - Elisa Garcia APRN.CNP - 10/06/2023 6:13 PM EDT Letter is in the outbox in our office. Elisa Garcia APRN.ESTIVEN * Telephone Encounter - Tiffany Beauchamp LPN - 10/05/2023 10:19 AM EDT Pt called asking on status of handicap placard. Is hoping to get it by this weekend. Please advise \. Tiffany Beauchamp LPN * Telephone Encounter - Tiffany Beauchamp LPN - 10/04/2023 8:54 AM EDT Pt states he was hospitalized last week for TIA, expressive aphasia & afib. He reports he gets out of breath quickly. Pt is asking if he is eligible for a handicap placard? If so, call when ready& pt will pick it up. Tiffany Beauchamp LPN documented in this encounterWayne Healthcare Main Campus08-15-2024 Telephone encounter Note * Telephone Encounter - Elisa Garcia APRN.CNP - 10/06/2023 6:13 PM EDT Letter is in the outbox in our office. Elisa Garcia APRN.ESTIVEN [facility] Work Phone: 1(230) 346-529308-14-2024 Telephone encounter Note* Telephone Encounter - Evelio Jack RN - 10/05/2023 1:02 PM EDT Patient called and notified. Evelio Jack RN [facility]08-14-2024 Miscellaneous Notes* Telephone Encounter - Evelio Jack RN - 10/05/2023 1:02 PM EDT Patient called and notified. Evelio Jack RN * Telephone Encounter - Heather Bennett MA - 10/04/2023 4:40 PM EDT Mychart message sent to inform. Heather Bennett [...] Please inform patient mar documented in this encounterWayne Healthcare Main Campus08-14-2024 Telephone encounter Note * Telephone Encounter - Tiffany Beauchamp LPN - 10/05/2023 10:19 AM EDT Pt called asking on status of handicap placard. Is hoping to get it by this weekend. Please advise \. Tiffany Beauchamp LPN [facility]08-13-2024 Telephone encounter Note* Telephone Encounter - Heather Bennett MA - 10/04/2023 4:40 PM EDT Mychart message sent to inform. Heather Bennett MA [facility]08-13-2024 Telephone encounter Note* Telephone Encounter - Tiffany Beauchamp LPN - 10/04/2023 8:54 AM EDT Pt states he was hospitalized last week for TIA, expressive aphasia & afib. He reports he gets out of breath quickly. Pt is asking if he is eligible for a handicap placard? If so, call when ready& pt will pick it up. Tiffany Beauchamp LPN [facility]08-07-2024 Telephone encounter Note* Telephone Encounter - Evelio Jack RN - 09/28/2023 3:01 PM EDT Left message asking patient to call back for results. Evelio Jack RN [facility]08-07-2024 Telephone encounter Note* Telephone Encounter - Evelio Jack, RN - 09/28/2023 3:00 PM EDT ----- Message from Analisa Nicole MD sent at 09/28/2023 2:17 PM EDT ----- ECHO IS NORMAL Please inform patient mar [facility]07-22-2024 History of Present illness Narrative* Analisa Nicole MD - 09/12/2023 11:01 AM EDT Images from the original note were not included. Analisa Nicole MD Interventional Cardiology [address] [address] [phone] Chief Complaint Patient presents with: New Patient [...] GERD (gastroesophageal reflux disease) Melanoma (HCC) 1991 [place] [facility] Persistent atrial fibrillation (HCC) 10/11/2019 Admitted 09/05/2019 [facility]. Followed by [facility]. PAST SURGICAL HISTORY Procedure Laterality [...] Rotator cuff repair - bilateral [facility] PAST SURGICAL HISTORY OF plastic surgery [...] weekly Drug use: No ALLERGIES Allergen Reactions Canones Other: See Comments sneezing,runny nose [place]az[place] Cough also [place] with same reaction Mold [...] ICD10: I48.21 Rate control and anticoagulation with Eliquis Analisa Nicole MD Follow up planning: ONE YEAR Electronically signed by Analisa Nicole MD on September 12, 2023, 11:01 AM The above note was partially created using a dictation recognition software. A reasonable attempt has been made to correct any errors. documented in this encounterWayne Healthcare [facility]05-03-2024 Instructions* Patient Instructions* Aj Issa MD - [...] doctors treat erectile dysfunction? The type of certified medical coder who treats ED will depend on the [...] or penile injection therapy. documented in this encounterWayne Healthcare [facility] Campus05-03-2024 NoteHNO ID: [id number] Author: AJ ISSA MD Service: ? Author Type: Physician Type: Procedures Filed: 06/27/2023 08:06 Note Text: CYSTOSCOPY PROCEDURE NOTE: 78534-kaykr/fulg 56441-dsowb,bx 59568--gdmme/complex 80993--oqnqq 34128--rhwkcemy cath 06252-etiyx/dilate BLADDER IRRIGATION, SIMPLE, LAVAG [[id number] Taz Foster is a 88 year old male who presents for cystoscopy. Pt ID verified with patient: yes Procedure verified with patient: yes Procedure confirmed with physician and manager product support: yes Special equipment-cystoscope Dx: UNIVERSAL PROTOCOL / [...] See progress note for plans Aj Issa [facility]05-03-2024 Procedure note* Aj Issa MD - 06/24/2023 8:30 AM EDTProcedure(s): CYSTOSCOPY Pre-Procedure Diagnose(s): Bladder neck contracture Post-Procedure Diagnose(s): Bladder neck contracture CYSTOSCOPY PROCEDURE NOTE: 88691-tuvtk/fulg 59003-lpvzm,bx 40792--zwgve/complex 77291--igfzo 44163--apbqitoo cath 22592-wfphr/dilate BLADDER IRRIGATION, SIMPLE, LAVAG [[id number] Taz Foster is a 88 year old male who presents for cystoscopy. 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 Pt ID verified with patient: yes Procedure verified with patient: yes Procedure confirmed with physician and manager product support: yes Special equipment-cystoscope Dx: UNIVERSAL PROTOCOL / [...] plans Aj Issa MD documented in this encounterWayne Healthcare [facility] Campus05-03-2024 NoteHNO ID: [id number] Author: RINA SHEETS MA Service: ? Author Type: Sales Communications Manager Type: Progress Notes Filed: 06/27/2023 08:06 Note Text: Termite Exterminator present:Rina Sheets [facility]05-03-2024 Note HNO ID: [id number] Author: AJ ISSA MD Service: ? Author Type: Physician Type: Progress Notes Filed: 06/27/2023 08:06 Note Text: ESTABLISHED PATIENT OFFICE VISIT PATIENT INFO: Taz Foster 88 year old HPI 06/24/2023 CC: [...] hung up He is going back to [place] in a few weeks and he knows to reconnect with urology there if he has problems Could always consult with Dr. Summers or Dr. Yamile Trujillo at [facility] who are stricture specialists and he [...] Discussed options and will take [facility] tomorrow for cystoscopy and urethral dilation [...] shortness of breath We will schedule at [facility] Bladder scan/postvoid residual-80 cc approximate 06/29/2022 CC: marcy Saw me last noted below and had laser TURP Did well afterwards but then having more trouble so underwent TURP in December 2021 in [place] and did well but over the last [...] daytime frequency but drink (more content not included)...[facility]05-03-2024 History of Present illness Narrative* Rina Sheets MA - 06/24/2023 8:20 AM EDT Termite Exterminator present:Rina Sheets MA * Aj Issa MD - 06/24/2023 8:20 AM EDT ESTABLISHED PATIENT OFFICE VISIT PATIENT INFO: Taz Foster 88 year old HPI 06/24/2023 CC: [...] hung up He is going back to [place] in a few weeks and he knows to reconnect with urology there if he has problems Could always consult with Dr. Summers or Dr. Yamile Trujillo at [facility] who are stricture specialists andhe will hold [...] shortness of breath We will schedule at [facility] Bladder scan/postvoid residual-80 cc approximate 06/29/2022 CC: marcy Saw me last noted below and had laser TURP Did well afterwards but then having more trouble so underwent TURP in December 2021 in [place] and did well but over the last [...] are not tender. Urology Procedures: June 24, 20233568-kbznvweieb-yzferef without stricture and get through prostate apex and mid prostate seenarrow area with ledge at 6:00 once again and distal snug so I cannot get the scope through it easily but I can see through in the bladder neck appears open 12/16/20228860-Acwktupldl-byijyjb without stricture and I get through prostatic [...] oclock A guide wire was advanced-Dilation using edhots59- sounds up to 26 F October 19, 20221758-hicnunudml-qtaakkg open and apex and mid prostate open but then small hole near 12 o'clock position towards the bladder neck and at 6 o'clock position couple of small holes I think I can see through to the bladder September 14, 20221466-cmrpwvtcgq-jeic recurrence of contracture just distal to the bladder neck and the prostate and with a little force passed the scope through it and dilated this very short area of contracture and minimal residual urine August 05, 2022-cystoscopy, dilation, transurethral resection bladder zlrw-Ulokbfbzh-nfwnzcjxobd inflamed benign urothelial mucosa with dystrophic microcalcifications July 20, 20220222-Iuvartfzcj-rh urethral stricture but just inside verumontanum I [...] (no units) Date Value 10/21/[address] [place], Ur (no units) Date Value 10/21/2016 1.025 [...] GERD (gastroesophageal reflux disease) Melanoma (HCC) 1991 [place] [facility] Persistent atrial fibrillation (HCC) 10/11/2019 Admitted 09/05/2019 [facility]. Followed by [facility]. FAMILY HISTORY Problem Relation Age [...] that may be inappropriate. documented in this encounterWayne Healthcare [facility] Campus03-27-2024 Miscellaneous Notes* Telephone Encounter - Mariana Clayton [...] Visit date not found Patient Phone numbers: [phone] (home) Request is for script(s) to be escript to pharmacy. Mariana Clayton MA documented in this encounterWayne Healthcare [facility] Campus03-11-2024 History of Present illness Narrative* Mini Saldaña [...] ED USE: OTHER FINDINGS/SUMMARY: Pt attributed to [facility]. No action needed Patient Attributed To: ANDRY Payer: Rory MARS Action Taken: No action needed Contact made with patient: No, Chart review only. Signature: Mini Saldaña RN documented in this encounterWayne Healthcare Main Campus09-29-2023 Miscellaneous Notes* Addendum Note - Radha Berman [...] (PRILOSEC) 20 mg capsule Contact patient at [phone] when this has been completed. Kate Wetzel * Telephone Encounter - Radha Berman APRN.CNP - 11/19/2022 12:44 PM EDT Yes, OK to take 2 tablets if needed. The following approved medication requests have been transmitted electronically. Requested Prescriptions Signed Prescriptions Disp Refills omeprazole (PRILOSEC) 20 mg capsule 60 capsule 2 Sig: Take 1 capsule by mouth two times a day as needed. 1/2 hr before meal. Authorizing Provider: RADHA BERMAN APRN.CNP * Telephone Encounter - Radha Thompson Ma [...] panel looks good. Thank you, Radha Berman APRN.ESTIVEN documented in this encounterWayne Healthcare [facility] Campus09-11-2023 Miscellaneous Notes* Telephone Encounter - Deisy Felipe [...] MAYUR 08/31/2022 NOV 09/01/2023 documented in this encounterWayne Healthcare [facility] Campus09-05-2023 Nurse Note* Georgie Hansen RN - 10/26/2022 11:33 AM EDT Patient in for CIC teaching. Given male CIC patient education sheet. Instructed on proper techniqueand s/s of infection, cath after trying to void, how to track. Verbalized understanding to all instruction. Patient able to cath self with nurse instruction/assistance. Used 16 croatian coude catheter.Informed patient that he is to [facility] once daily. Samples given. Georgie Hansen, RN documented in this encounterWayne Healthcare [facility] Campus08-31-2023 Miscellaneous Notes* Telephone Encounter - Jeffrey Rdz [...] do once each day documented in this encounterWayne Healthcare [facility] Campus08-29-2023 Instructions* Patient Instructions* Aj Issa MD - 10/19/2022 10:47 AM EDT INSTRUCTIONS FROM DR. ISSA: Plan on cystoscopy with urethral dilation [facility] documented in this encounterWayne Healthcare [facility] Campus08-29-2023 Procedure note* Aj Issa MD - 10/19/2022 10:38 AM EDTProcedure(s): CYSTOSCOPY Pre-Procedure Diagnose(s): Slow urinary stream Post-Procedure Diagnose(s): Slow urinary stream CYSTOSCOPY PROCEDURE NOTE: 21336-zwven/fulg 26407-qabqt,bx 12403--qtrzx/complex 04290--ngeeu 48619--xcsihjog cath 52332-zgsqp/dilate BLADDER IRRIGATION, SIMPLE, LAVAG [[id number] Taz Foster is a 87 year old male who presents for cystoscopy. Pt ID verified with patient: yes Procedure verified with patient: yes Procedure confirmed with physician and manager product support: yes Special equipment-cystoscope UNIVERSAL PROTOCOL / SAFETY [...] plans Aj Issa MD documented in this encounterWayne Healthcare [facility] Campus08-29-2023 History of Present illness Narrative* Aj Issa MD - 10/19/2022 10:10 AM EDT ESTABLISHED PATIENT OFFICE VISIT PATIENT INFO: Taz Foster 87 year old HPI 10/19/2022 CC: [...] Discussed options and will take to [facility] tomorrow for cystoscopy and urethral dilation [...] shortness of breath We will schedule at [facility] Bladder scan/postvoid residual-80 cc approximate 06/29/2022 CC: marcy Saw me last noted below and had laser TURP Did well afterwards but then having more trouble so underwent TURP in December 2021 in [place] and did well but over the last [...] to discuss PVP--had been discussed by Urologist afdelio cysto last yr PROSTATE: 30-50 gm SEMINAL VESICLES: Both seminal vesicles are normal in size and are not tender. Urology Procedures: October 19, 20223249-qollinuuwj-rbpytfn open and apex and mid prostate open but then small hole near 12 o'clock position towards the bladder neck and at 6 o'clock position couple of small holes I think I can see through to the bladder September 14, 20226222-zrfjxjndvu-vamf recurrence of contracture just distal to the bladder neck and the prostate and with a little force passed the scope through it and dilated this very short area of contracture and minimal residual urine August 05, 2022-cystoscopy, dilation, transurethral resection bladder slhn-Lbsqprncx-cbyccvaihwr inflamed benign urothelial mucosa with dystrophic microcalcifications July 20, 20222918-Ilfawkddob-od urethral stricture but just inside verumontanum I can see just scar tissue further and prostate and could be just the bladder neck or mid prostate and calcification at 2 o'clock position and a few holes more towards 6:00 and they look black as if I can see through them into the bladder possibly September 24, 2016-photo vaporization of the prostate 11/11/2015: Procedure: cysto--[place] ZGERARDO, Comment: bilobar obstruct; mod trabec Creatinine Date Value Ref Range Status 07/29/2022 1.42 (H) 0.73 - 1.22 mg/dL Final PSA (ng/mL) Date Value 07/22/2016 0.54 08/14/2012 0.84 PSA Screening (ng/mL) Date Value 11/16/2021 0.99 Glucose, Urine (mg/dL) Date Value 10/21/2016 neg Bilirubin, Urine (no units) Date Value 10/21/2016 neg Ketones, Urine (no units) Date Value 10/21/[address] [place], Ur (no units) Date Value 10/21/2016 1.025 [...] GERD (gastroesophageal reflux disease) Melanoma (HCC) 1991 [place] [facility] Persistent atrial fibrillation (HCC) 10/11/2019 Admitted 09/05/2019 [facility]. Followed by [facility]. FAMILY HISTORY Problem Relation Age [...] that may be inappropriate. documented in this encounterWayne Healthcare [facility] Campus08-25-2023 Miscellaneous Notes* Telephone Encounter - Heather Welch LPN - 10/15/2022 8:11 AM EDT Spoke with pt and information listed below given. Pt verbalizes understanding. Heather Welch LPN * Telephone Encounter - Radha Berman APRN.CNP - 10/14/2022 2:38 PM EDT Consult placed. No specific referral, any doctor is fine. Thank you, Radha Berman APRN.STONE DERRICKMAN AND RIGGER * Telephone Encounter - Heather Welch LPN - 10/14/2022 9:31 AM EDT Pt calling for a referral to Gastro at [facility]. Pt asking if there is a doctor there you would recommend. Dx is GERD. Please advise pt. Heather Welch LPN documented in this encounterWayne Healthcare [facility] Campus08-22-2023 History of Present illness Narrative* Beata Watkins APRN.ESTIVEN - 10/12/2022 11:40 AM EDT ESTABLISHED PATIENT OFFICE VISIT HISTORY OF PRESENT ILLNESS Taz Foster is a 87 year old male [...] (no units) Date Value 10/21/2016 neg [address] Mall, Ur (no units) Date Value 10/21/2016 1.025 [...] GERD (gastroesophageal reflux disease) Melanoma (HCC) 1991 [place] [facility] Persistent atrial fibrillation (HCC) 10/11/2019 Admitted 09/05/2019 [facility]. Followed by [facility]. FAMILY HISTORY Problem Relation Age [...] 2012 L Rotator cuff repair - bilateral [facility] PAST SURGICAL HISTORY OF plastic surgery [...] 788.43, ICD10: R35.1 - URINE CULTURE - sanjay Keanesdon, MEDICAL RECORDS DIRECTOR.STONE DERRICKMAN AND RIGGER documented in this encounterWayne Healthcare [facility] Campus08-10-2023 Miscellaneous Notes* Addendum Note - Mirza Dvaidson LPN - 09/30/2022 10:03 AM EDTAddended by: MIRZA DAVIDSON LPN on: 09/30/2022 10:03 AM Modules accepted: Orders * Telephone Encounter - Mirza Davidson LPN - 09/30/2022 9:59 AM EDT Patient calling back now wants rx sent to [facility] for the generic viagra please. Aware PCP is out of office and asking to have request sent to FABRICATING MACHINE OPERATOR to review. Pending rx needs completed. Please advise * Telephone Encounter - Monica Vernon LPN - 09/30/2022 9:25 AM EDT Spoke with pt gave information provided. Pt voices understanding. * Telephone Encounter - Dipak Aguilar DO - 09/29/2022 10:21 PM EDT [...] advise Tiffany Beauchamp LPN documented in this encounterWayne Healthcare [facility] Campus07-11-2023 History of Present illness Narrative* Wes Mcintosh MD - 08/31/2022 8:30 AM EDT Images from the original note were not included. [facility] [place] [facility] Department of Cardiovascular Medicine OUTPATIENT VISIT DATE 08/31/22 OUTPATIENT VISIT TYPE ESTABLISHED PRIMARY CARE PHYSICIAN: Dipak Aguilar DO [address] [facility] [address] CHIEF COMPLAINT: Patient presents with: CARD Follow Up Annual HISTORY OF PRESENT ILLNESS: Taz Foster is a 87 year old male. [...] GERD (gastroesophageal reflux disease) Melanoma (HCC) 1990 [place] Persistent atrial fibrillation (HCC) 10/11/2019 Admitted 09/05/2019 [facility]. Followed by [facility]. PAST SURGICAL HISTORY Procedure Laterality [...] 2011 L Rotator cuff repair - bilateral [facility] PAST SURGICAL HISTORY OF plastic surgery [...] No Family History ALLERGIES: ALLERGIES Allergen Reactions Canones Other: See Comments sneezing,runny nose Yazoo Cough also [place] with same reaction Mold [...] of any further assistance. Wes Mcintosh MD, [facility] Department of Cardiovascular Medicine [facility] [place] [address] Medical Decision Making: Problems: Moderate: 2+ stable chronic illnesses Data: Unique test result(s) reviewed: 1 Risk: Low: Low risk from testing/treatment Moderate: Drug management Medical Decision Making Level: 4 - Moderate documented in this encounterWayne Healthcare [facility] Campus06-30-2023 Miscellaneous Notes* Telephone Encounter - Rina Sheets Cma - 08/20/2022 10:20 AM EDT Patient advised-urine culture was positive so I sent prescription for Bactrim to his pharmacy Patient agreed. Rina Sheets Cma * Telephone Encounter - Aj Issa MD - 08/20/2022 10:06 AM EDT Inform patient that urine culture was positive so I sent prescription for Bactrim to his pharmacy documented in this encounterWayne Healthcare [facility] Campus06-27-2023 Instructions* Patient Instructions* Aj Issa MD - 08/17/2022 10:33 AM EDT INSTRUCTIONS FROM DR. ISSA: Start the Detrol medication and see if it helps with leakage issues and I sent to your local pharmacy I will perform cystoscopy in the office when I see you back in about 4 weeks documented in this encounterWayne Healthcare [facility] Campus06-27-2023 History of Present illness Narrative* Aj Issa MD - 08/17/2022 10:19 AM EDT ESTABLISHED PATIENT OFFICE VISIT PATIENT INFO: Taz Foster 87 year old HPI 08/17/2022 CC: [...] shortness of breath We will schedule at [facility] Bladder scan/postvoid residual-80 cc approximate 06/29/2022 CC: marcy Saw me last noted below and had laser TURP Did well afterwards but then having more trouble so underwent TURP in December 2021 in [place] and did well but over the last [...] August 05, 2022-cystoscopy, dilation, transurethral resection bladder dcrg-Pdgjlxaok-sagyrksukyh inflamed benign urothelial mucosa with dystrophic microcalcifications July 20, 20223404-Pjgwixcocz-zy urethral stricture but just inside verumontanum I [...] (no units) Date Value 10/21/2016 [address] Mall, Ur (no units) Date Value 10/21/2016 1.025 [...] GERD (gastroesophageal reflux disease) Melanoma (HCC) 1991 [place] Persistent atrial fibrillation (HCC) 10/11/2019 Admitted 09/05/2019 [facility]. Followed by [facility]. FAMILY HISTORY Problem Relation Age [...] that may be inappropriate. documented in this encounterWayne Healthcare [facility] Campus06-19-2023 Nurse Note* Kylee Chang - 08/09/2022 10:10 [...] instructions. Kylee Chang RN documented in this encounterWayne Healthcare [facility] Campus06-15-2023 Miscellaneous Notes* Telephone Encounter - Chante Reyes - 08/05/2022 1:04 PM EDT Patient has been moved to Tuesday08/09/2022 for voiding trial at [facility]. Chante Beth Head Of Advertising * Telephone Encounter - Aj Issa MD - 08/05/2022 10:46 AM EDT S/p TURP P: pt has appt with nurse next --see if they want to move that to tue or if nursing can do active void trial then documented in this encounterWayne Healthcare [facility] Campus06-05-2023 History of Present illness Narrative* Crystal Pradhan APRN.STONE DERRICKMAN AND RIGGER - 07/26/2022 9:25 AM EDT Chief Complaint Patient presents with: Pre-Op Exam HPI Taz Foster is a 87 year old male [...] history of colon cancer Melanoma (HCC) 1990 [place] Persistent atrial fibrillation (HCC) 10/11/2019 Admitted 09/05/2019 [facility]. Followed by [facility]. Previous Surgical History PAST SURGICAL [...] Rotator cuff repair - bilateral [facility] PAST SURGICAL HISTORY OF plastic surgery [...] Family History Patient Allergies ALLERGIES Allergen Reactions Canones Other: See Comments sneezing,runny nose Yazoo Cough also [place] with same reaction Mold [...] are well controlled and stable. Crystal Pradhan APRN.STONE DERRICKMAN AND RIGGER documented in this encounterWayne Healthcare [facility] Campus06-01-2023 Miscellaneous Notes* Telephone Encounter - Yoko MENDES - 07/22/2022 11:37 AM EDT Pt is scheduled for C&P, urethral dilation, possible DVIU, TURP with Dr Issa at [facility] on 08/05/22 @ 8:00 (6:00 arrival). PAT and labs on 07/29/22 @ 3:00 at [place]. Pt takes ELIQUIS- needs to be off 3 days prior and at least 7 days after surgery. Medical clearanceform faxed to Dr Dipak Aguilar, f.[phone] on 07/20/22. 1 week follow up with nurse on 08/12/22 @ 1:30. 2-[address] Issa on 08/17/22 @ 11:00. Pt given date, time, prep and arrival instructions in person on 07/20/22. Written info given also. Yoko MENDES documented in this encounterWayne Healthcare [facility] Campus06-01-2023 Miscellaneous Notes* Telephone Encounter - Monica Vernon LPN - 07/22/2022 9:49 AM EDT T/C to pt, he is willing to come in tried but was told you are not available till way out. Explained both PLUMBER'[employer] HELPER milan out and you are trying to [...] Aguilar. Monica Vernon LPN documented in this encounterWayne Healthcare [facility] Campus05-30-2023 Instructions* Patient Instructions* Aj Issa MD - 07/20/2022 10:36 AM EDT INSTRUCTIONS FROM DR. ISSA: We will schedule the cystoscopy with the dilation and possible transurethral section prostate documented in this encounterWayne Healthcare Main Campus05-30-2023 Procedure note* Aj Issa MD - 07/20/2022 10:24 AM EDTProcedure(s): CYSTOSCOPY Pre-Procedure Diagnose(s): Bladder neck contracture Post-Procedure Diagnose(s): Bladder neck contracture CYSTOSCOPY PROCEDURE NOTE: 56708-anoyz/fulg 39154-dbnpt,bx 12418--lsbln/complex 39133--mytmk 98398--sgdnvhof cath 06079-inivb/dilate BLADDER IRRIGATION, SIMPLE, LAVAG [[id number] Taz Foster is a 87 year old male who presents for cystoscopy. Pt ID verified with patient: yes Procedure verified with patient: yes Procedure confirmed with physician and manager product support: yes Special equipment-cystoscope UNIVERSAL PROTOCOL / SAFETY [...] plans Aj Issa MD documented in this encounterWayne Healthcare Main Campus05-30-2023 History of Present illness Narrative* Aj Issa MD - 07/20/2022 10:11 AM EDT ESTABLISHED PATIENT OFFICE VISIT PATIENT INFO: Taz Foster 87 year old HPI 07/20/2022 CC: [...] shortness of breath We will schedule at [facility] Bladder scan/postvoid residual-80 cc approximate Past Urology Hx: 06/29/2022 CC: marcy Saw me last noted below and had laser TURP Did well afterwards but then having more trouble so underwent TURP in December 2021 in [place] and did well but over the last [...] are not tender. Urology Procedures: July 20, 20228225-Irduufepjf-in urethral stricture but just inside verumontanum I [...] (no units) Date Value 10/21/[address] Mall, Ur (no units) Date Value 10/21/2016 1.025 [...] history of colon cancer Melanoma (HCC) 1990 [place] Persistent atrial fibrillation (HCC) 10/11/2019 Admitted 09/05/2019 [facility]. Followed by [facility]. FAMILY HISTORY Problem Relation Age [...] and dysuria. Risk of anesthesia complications, stroke, VA, etc.The patient expressed an understandingwith regard to [...] neck stricture - ICD9: 596.89, ICD10: N32.0 [facility]-cystoscopy, pyelograms, urethral dilation/DVIU/possible TURP - SULFAMETHOXAZOLE 800 MG-TRIMETHOPRIM 160 MG TABLET - LIDOCAINE 2 % MUCOSAL JELLY IN APPLICATOR - CYSTO.PANENDO Aj Issa Please note: This note has been produced using speech recognition software and may contain errors related to that system including grammar, punctuation, spelling, gender and words and phrases that may be inappropriate. documented in this encounterWayne [facility]05-11-2023 History of Present illness Narrative* MARIEL Cardona - 07/01/2022 7:20 AM EDT This note was created using Savio[employer]. Subjective Taz Foster is a 87 year old male. [...] ER evaluation. MARIEL Cardona documented in this encounterWayne Healthcare [facility] Campus05-09-2023 Instructions* Patient Instructions* Aj Issa MD - [...] urination after the test. documented in this encounterWayne Healthcare [facility] Campus05-09-2023 History of Present illness Narrative* Aj Issa MD - 06/29/2022 3:27 PM EDT ESTABLISHED PATIENT OFFICE VISIT PATIENT INFO: Taz Foster 87 year old HPI 06/29/2022 CC: marcy Saw me last noted below and had laser TURP Did well afterwards but then having more trouble so underwent TURP in December 2021 in [place] and did well but over the last [...] 2016-photo vaporization of the prostate 11/11/2015: Procedure: cysto--[place], Comment: bilobar obstruct; mod trabec Creatinine Date Value Ref Range Status 11/16/2021 1.40 (H) 0.73 - 1.22 mg/dL Final PSA (ng/mL) Date Value 07/22/2016 0.54 08/14/2012 0.84 PSA Screening (ng/mL) Date Value 11/16/2021 0.99 Glucose, Urine (mg/dL) Date Value 10/21/2016 neg Bilirubin, Urine (no units) Date Value 10/21/2016 neg Ketones, Urine (no units) Date Value 10/21/2016 neg Specific Pall Mall, Ur (no units) Date Value 10/21/2016 1.025 [...] history of colon cancer Melanoma (HCC) 1991 [place] [employer] Persistent atrial fibrillation (HCC) 10/11/2019 Admitted 09/05/2019 [facility]. Followed by [facility]. FAMILY HISTORY Problem Relation Age [...] that may be inappropriate. documented in this encounterWayne Healthcare [facility] Campus11-07-2022 Miscellaneous Notes* Telephone Encounter - Deisy Felipe RN - 12/28/2021 12:04 PM EST RN from [place] called about pt getting clearance for surgery. She is requesting for EKG, MAYUR from Dr. Mcintosh, Echo and stress test results. Advised RN to call medical records to obtain these documents at [phone] documented in this encounterWayne Healthcare Main Campus10-18-2022 History of Present illness Narrative* Korin Araiza APRN.[facility] - 12/08/2021 10:01 AM EDT Patient came in presenting with a sore on his middle upper chest. Patient says he has had 3 weeks. Patient says it does not seem to be getting better. Patient says he did try to open it up but nothing came out. Patient has a history of skin cancer lesions. Patient sees a body rolling machine tender for this. Didattempt to call patient's dermatology office they were not sure they can get them in. Got an appointment tomorrow with Julian Robbins. Patient was okay with this and patient will follow-up tomorrow morning with Julian Robbins. documented in this encounterWayne Healthcare Main Campus10-17-2022 Miscellaneous Notes* Telephone Encounter - Heather Welch [...] diet. Dipak Aguilar DO documented in this encounterWayne Healthcare Main Campus10-11-2022 History of Present illness Narrative* Arlin Yang LPN - 12/01/2021 2:15 PM EDT Patient presents for COVID booster. Denies any problems at this time. Tolerated injection well. Arlin Yang LPN documented in this encounterWayne Healthcare Main Campus09-26-2022 History of Past illness Narrative* Problem Noted Date Diagnosed Date Resolved Date Atrial fibrillation 11/16/2021 11/17/19 23 Atrial fibrillation, chronic 08/26/2020 11/12/2021 Persistent atrial fibrillation 10/11/2019 11/12/2021 Overview: Admitted 09/05/2019 [facility]. Followed by [facility]. Asthma with chronic obstruct steve pulmonary disease (COPD) 10/26/2018 09/12/2019 documented as of this encounter (statuses as of 11/19/2022) [facility] History of Past illness Narrative* Problem Noted Date Diagnosed Date Resolved Date Atrial fibrillation 11/16/2021 11/17/19 23 Atrial fibrillation, chronic 08/26/2020 11/12/2021 Persistent atrial fibrillation 10/11/2019 11/12/2021 Overview: Admitted 09/05/2019 [facility]. Followed by [facility]. Asthma with chronic obstruct steve pulmonary disease (COPD) 10/26/2018 09/12/2019 documented as of this encounter (statuses as of 05/02/2023) [facility] History of Past illness Narrative* Problem Noted Date Diagnosed Date Resolved Date Atrial fibrillation 11/16/2021 11/17/19 23 Atrial fibrillation, chronic 08/26/2020 11/12/2021 Persistent atrial fibrillation 10/11/2019 11/12/2021 Overview: Admitted 09/05/2019 [facility]. Followed by [facility]. Asthma with chronic obstruct steve pulmonary disease (COPD) 10/26/2018 09/12/2019 documented as of this encounter (statuses as of 05/18/2023) [facility]08-15-[facility]22 Miscellaneous Notes* Telephone Encounter - Lidia Danielson Pss - 10/05/2021 9:37 AM EDT Form has been scanned and faxed. Thank you * Telephone Encounter - Wes Mcintosh MD - 10/02/2021 5:28 PM EDT Done. * Telephone Encounter - Lizzie Bonds Ma - 09/30/2021 8:28 AM EDT Type of form: [place] urology specialist. (Asking about stopping Eliquis) Form received via fax When form is completed, Fax form to [phone] Form has been forwarded to Physician Desk: Dr. Dayna GALDAMEZ. Lizzie Bonds Ma documented in this encounterWayne Healthcare Main Campus06-17-2022 History of Present illness Narrative* Sara Gallardo Pss - 08/07/2021 9:43 AM EDT POPULATION HEALTH NAVIGATION OUTREACH Action/ Patient Outreach: [facility] Support - Pt has currently been [...] 07, 2021 9:43 AM documented in this encounterWayne Healthcare Main Campus08-23-2021 History of Present illness Narrative* Sara Arshad RT(R) - 10/13/2020 9:50 AM EDT Radiology Service Progress Note PATIENT NAME: Taz Foster DATE OF SERVICE: October 13, 2020 [...] 13, 2020 9:48 AM documented in this encounterWayne Healthcare Main Campus07-06-2021 History of Past illness Narrative* Problem Noted Date Resolved Date Atrial fibrillation, chronic 08/26/2020 Persistent atrial fibrillation 10/11/2019 0 11/12/2021 Overview: Admitted 09/05/2019 [facility]. Followed by [facility]. Asthma with chronic obstructive pulmonary diseas e (COPD) 10/26/2018 09/12/2019 documented as of this encounter (statuses as of 12/01/2021) [facility] History of Past illness Narrative* Problem Noted Date Resolved Date Atrial fibrillation, chronic 08/26/2020 Persistent atrial fibrillation 10/11/2019 0 11/12/2021 Overview: Admitted 09/05/2019 [facility]. Followed by [facility]. Asthma with chronic obstructive pulmonary diseas e (COPD) 10/26/2018 09/12/2019 documented as of this encounter (statuses as of 12/07/2021) [facility] History of Past illness Narrative* Problem Noted Date Resolved Date Atrial fibrillation, chronic 08/26/2020 Persistent atrial fibrillation 10/11/2019 0 11/12/2021 Overview: Admitted 09/05/2019 [facility]. Followed by [facility]. Asthma with chronic obstructive pulmonary diseas e (COPD) 10/26/2018 09/12/2019 documented as of this encounter (statuses as of 12/08/2021) [facility] History of Past illness Narrative* Problem Noted Date Resolved Date Atrial fibrillation, chronic 08/26/2020 Persistent atrial fibrillation 10/11/2019 0 11/12/2021 Overview: Admitted 09/05/2019 [facility]. Followed by [facility]. Asthma with chronic obstructive pulmonary diseas e (COPD) 10/26/2018 09/12/2019 documented as of this encounter (statuses as of 12/28/2021) [facility] History of Past illness Narrative* Problem Noted Date Resolved Date Atrial fibrillation, chronic 08/26/2020 Persistent atrial fibrillation 10/11/2019 0 11/12/2021 Overview: Admitted 09/05/2019 [facility]. Followed by [facility]. Asthma with chronic obstructive pulmonary diseas e (COPD) 10/26/2018 09/12/2019 documented as of this encounter (statuses as of 07/01/2022) [facility] of Past illness Narrative* Problem Noted Date Resolved Date Atrial fibrillation, chronic 08/26/2020 Persistent atrial fibrillation 10/11/2019 0 11/12/2021 Overview: Admitted 09/05/2019 [facility]. Followed by [facility]. Asthma with chronic obstructive pulmonary diseas e (COPD) 10/26/2018 09/12/2019 documented as of this encounter (statuses as of 07/01/2022) [facility] of Past illness Narrative* Problem Noted Date Resolved Date Atrial fibrillation, chronic 08/26/2020 Persistent atrial fibrillation 10/11/2019 0 11/12/2021 Overview: Admitted 09/05/2019 [facility]. Followed by [facility]. Asthma with chronic obstructive pulmonary diseas e (COPD) 10/26/2018 09/12/2019 documented as of this encounter (statuses as of 07/22/2022) [facility] of Past illness Narrative* Problem Noted Date Resolved Date Atrial fibrillation, chronic 08/26/2020 Persistent atrial fibrillation 10/11/2019 0 11/12/2021 Overview: Admitted 09/05/2019 [facility]. Followed by [facility]. Asthma with chronic obstructive pulmonary diseas e (COPD) 10/26/2018 09/12/2019 documented as of this encounter (statuses as of 07/22/2022) [facility] of Past illness Narrative* Problem Noted Date Resolved Date Atrial fibrillation, chronic 08/26/2020 Persistent atrial fibrillation 10/11/2019 0 11/12/2021 Overview: Admitted 09/05/2019 [facility]. Followed by [facility]. Asthma with chronic obstructive pulmonary diseas e (COPD) 10/26/2018 09/12/2019 documented as of this encounter (statuses as of 07/26/2022) [facility] of Past illness Narrative* Problem Noted Date Resolved Date Atrial fibrillation, chronic 08/26/2020 Persistent atrial fibrillation 10/11/2019 0 11/12/2021 Overview: Admitted 09/05/2019 [facility]. Followed by [facility]. Asthma with chronic obstructive pulmonary diseas e (COPD) 10/26/2018 09/12/2019 documented as of this encounter (statuses as of 08/05/2022) [facility] of Past illness Narrative* Problem Noted Date Resolved Date Atrial fibrillation, chronic 08/26/2020 Persistent atrial fibrillation 10/11/2019 0 11/12/2021 Overview: Admitted 09/05/2019 [facility]. Followed by [facility]. Asthma with chronic obstructive pulmonary diseas e (COPD) 10/26/2018 09/12/2019 documented as of this encounter (statuses as of 08/09/2022) [facility] of Past illness Narrative* Problem Noted Date Resolved Date Atrial fibrillation, chronic 08/26/2020 Persistent atrial fibrillation 10/11/2019 0 11/12/2021 Overview: Admitted 09/05/2019 [facility]. Followed by [facility]. Asthma with chronic obstructive pulmonary diseas e (COPD) 10/26/2018 09/12/2019 documented as of this encounter (statuses as of 08/19/2022) [facility] of Past illness Narrative* Problem Noted Date Resolved Date Atrial fibrillation, chronic 08/26/2020 Persistent atrial fibrillation 10/11/2019 0 11/12/2021 Overview: Admitted 09/05/2019 [facility]. Followed by [facility]. Asthma with chronic obstructive pulmonary diseas e (COPD) 10/26/2018 09/12/2019 documented as of this encounter (statuses as of 08/20/2022) [facility] of [facility] illness Narrative* Problem Noted Date Diagnosed Date Resolved Date Atrial fibrillation, chronic 08/26/2020 11/12/2021 Persistent atrial fibrillation 10/11/2019 11/12/2021 Overview: Admitted 09/05/2019 [facility]. Followed by [facility]. Asthma with chronic obstruct steve pulmonary disease (COPD) 10/26/2018 09/12/2019 documented as of this encounter (statuses as of 08/31/2022) [facility] of [facility] illness Narrative* Problem Noted Date Diagnosed Date Resolved Date Atrial fibrillation, chronic 08/26/2020 11/12/2021 Persistent atrial fibrillation 10/11/2019 11/12/2021 Overview: Admitted 09/05/2019 [facility]. Followed by [facility]. Asthma with chronic obstruct steve pulmonary disease (COPD) 10/26/2018 09/12/2019 documented as of this encounter (statuses as of 09/30/2022) [facility] of Past illness Narrative* Problem Noted Date Diagnosed Date Resolved Date Atrial fibrillation, chronic 08/26/2020 11/12/2021 Persistent atrial fibrillation 10/11/2019 11/12/2021 Overview: Admitted 09/05/2019 [facility]. Followed by [facility]. Asthma with chronic obstruct steve pulmonary disease (COPD) 10/26/2018 09/12/2019 documented as of this encounter (statuses as of 10/12/2022) [facility] of [facility] illness Narrative* Problem Noted Date Diagnosed Date Resolved Date Atrial fibrillation, chronic 08/26/2020 11/12/2021 Persistent atrial fibrillation 10/11/2019 11/12/2021 Overview: Admitted 09/05/2019 [facility]. Followed by [facility]. Asthma with chronic obstruct steve pulmonary disease (COPD) 10/26/2018 09/12/2019 documented as of this encounter (statuses as of 10/15/2022) [facility] of Past illness Narrative* Problem Noted Date Diagnosed Date Resolved Date Atrial fibrillation, chronic 08/26/2020 11/12/2021 Persistent atrial fibrillation 10/11/2019 11/12/2021 Overview: Admitted 09/05/2019 [facility]. Followed by [facility]. 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 Followed by [facility]. Asthma with chronic obstruct steve pulmonary disease (COPD) 10/26/2018 09/12/2019 documented as of this encounter (statuses as of 10/21/2022) [facility] of Past illness Narrative* Problem Noted Date Diagnosed Date Resolved Date Atrial fibrillation, chronic 08/26/2020 11/12/2021 Persistent atrial fibrillation 10/11/2019 11/12/2021 Overview: Admitted 09/05/2019 [facility]. Followed by [facility]. Asthma with chronic obstruct steve pulmonary disease (COPD) 10/26/2018 09/12/2019 documented as of this encounter (statuses as of 10/26/2022) [facility] of [facility] illness Narrative* Problem Noted Date Diagnosed Date Resolved Date Atrial fibrillation, chronic 08/26/2020 11/12/2021 Persistent atrial fibrillation 10/11/2019 11/12/2021 Overview: Admitted 09/05/2019 [facility]. Followed by [facility]. Asthma with chronic obstruct steve pulmonary disease (COPD) 10/26/2018 09/12/2019 documented as of this encounter (statuses as of 11/01/2022) [facility] of [facility] illness Narrative* Problem Noted Date Resolved Date Asthma with chronic obstructive pulmonary diseas e (COPD) 10/26/2018 09/12/2019 documented as of this encounter (statuses as of 08/07/2021) [facility] History of Past illness Narrative* Problem Noted Date Resolved Date Asthma with chronic obstructive pulmonary diseas e (COPD) 10/26/2018 09/12/2019 documented as of this encounter (statuses as of 10/05/2021) [facility] CampusDis[facility] summary Author Sukhdev Mark [facility] Note Date/Time September 11, 2024 12:4 6pm [facility] Medical Records Department [address] [place] [address] Emergency Department Summary 09/11/24 MR#: [id number] Acct: [id number] Name: TAZ FOSTER Rep #:[id number] : [id number] From: Sukhdev Mark MD [...] similar symptoms: No Recent Illness/Hospitalization: No PFSH [facility] Medical History (Updated 09/11/24 @ 12:46 [...] radial and ulnar function intact right hand [place] Coma Scale: document GCS findings Spontaneous Obeys [...] pathology or acute traumatic injury. Reading Location: [facility] Knee X-Ray 09/11/24 10:35 IMPRESSION: Hardware in position. Reading Location: [facility] CT of the head without contrast independent [...] next 2 doses of Eliquis Print Language: Panamanian Disposition Disposition: Home, Self Care What to do if you have Problems For any increased pain, shortness of breath, bleeding, nausea or vomiting, chestpain, or any unexpected problems, contact your Primary Care Provider. Call [facility] ([phone]) or report to the closest Emergency Room. Call 911 if necessary. 09/11/24 1246 <Electronically signed by Sukhdev Mark MD> Cosigner Signature (if applicable): CC: Dr. Dipak Aguilar DO ~ Signed [facility] Work Phone: Discharge summary Author Abdelrahman Keller [facility] Note Date/Time October 14, 2024 8: 44am [facility] Medical Records Department [address] [place] [address] Emergency Department Summary 10/14/24 MR#: [id number] Acct: [id number] Name: TAZ FOSTER Rep #:[id number] : [id number] From: Abdelrahman Keller MD [...] of his antihypertensives. He denies taking any [id number] medications recently including decongestants, or having any illness or injury. He has been urinating normally. [facility] Medical History (Updated 10/14/24 @ [...] has had more recent labs through the [facility] where his PCP practices. Staff performed an [...] Days Qty: 30 2RF Primary Care Provider: Diapk Aguilar Referrals: Dipak Aguilar DO [Primary Care Provider] - Print Language: Panamanian Disposition Disposition: Home, Self Care What to do if you have Problems For any increased pain, shortness of breath, bleeding, nausea or vomiting, chestpain, or any unexpected problems, contact your Primary Care Provider. Call [facility] ([phone]) or report to the closest Emergency Room. Call 911 if necessary. 10/14/24 0844 <Electronically signed by Abdelrahman Keller MD> Cosigner Signature (if applicable): CC: Dr. Dipak Aguilar DO ~ Signed [facility] Work Phone: Evaluation note* Diagnosis Need for vaccination- Primary Need for prophylactic vaccination and inoculation against unspecified single disease [facility] Diagnosis Skin lesion- Primary Unspecified disorder of skin and subcutaneous tissue documented [facility] this encounter [facility]* Diagnosis Acute otitis externa of right ear, unspecified type- Primary Cellulitis of right external ear Infective otitis externa, unspecified documented [facility] this [facility]* Diagnosis 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 tract symptoms (LUTS) Nocturia Poor urinary stream Slowing of urinary stream Frequency of micturition Urinary frequency Incomplete bladder emptying documented [facility]* Diagnosis BPH with obstruction/lower urinary tract [...] tract symptoms (LUTS) documented [facility] this [facility]* Diagnosis Preoperative clearance- Primary Preoperative examination, unspecified Asthma-COPD overlap syndrome (HCC) Atrial fibrillation, unspecified type (HCC) Bladder neck contracture Bladder neck obstruction Poor urinary stream Slowing of urinary stream BPH with obstruction/lower urinary tract symptoms Hypertrophy of prostate with urinary obstruction and other lower urinary tract symptoms (LUTS) documented [facility] this [facility]* Diagnosis 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 tract symptoms (LUTS) documented [facility]* Diagnosis Bladder neck stricture- Primary Other specified disorders of bladder Nocturia Urinary incontinence, unspecified type [facility] Diagnosis Permanent atrial fibrillation (HCC)- Primary Atrial fibrillation [facility] Diagnosis Weak urinary stream- Primary Slowing of urinary stream Incomplete bladder emptying Bladder neck stricture Other specified disorders of bladder Poor urinary stream Slowing of urinary stream Nocturia documented [facility] this [facility]* Diagnosis Gastroesophageal reflux disease without esophagitis- Primary Esophageal reflux [facility]* Diagnosis Weak urinary stream- Primary Slowing of urinary stream Bladder neck stricture Other specified disorders of bladder Frequency of micturition Urinary frequency Bladder neck obstruction [facility] Diagnosis 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 tract symptoms (LUTS) [facility]* Diagnosis Permanent atrial fibrillation (HCC) Atrial fibrillation [facility]* Diagnosis Poor urinary stream Slowing of urinary stream [facility]* Diagnosis Bladder neck stricture- Primary Other specified disorders of bladder 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 of organic origin [facility]* Diagnosis Screening for ischemic heart disease- Primary Shortness of breath Permanent atrial fibrillation (HCC) Atrial fibrillation [facility] Diagnosis Permanent atrial fibrillation (HCC) Atrial [...] (HCC) Atrial fibrillation [facility] Diagnosis Permanent atrial fibrillation (HCC) Atrial [...] neoplasm of prostate documented in this encounter [facility] note* Diagnosis Permanent atrial fibrillation (HCC) Atrial [...] region and thigh documented in this encounter [facility] note* Diagnosis Permanent atrial fibrillation (HCC) Atrial [...] spondylosis without myelopathy [facility] Diagnosis Permanent atrial fibrillation (HCC) Atrial [...] region and thigh [facility]* Diagnosis Knee injury, right, initial encounter [...] diagnosis of hypertension [facility] Diagnosis Permanent atrial fibrillation (HCC) Atrial [...] and behavioral disorders [facility]* Diagnosis Permanent atrial fibrillation (HCC) Atrial [...] Productive cough Cough [facility]* Diagnosis Permanent atrial fibrillation (HCC) Atrial [...] Productive cough Cough documented in this encounter [facility] note* Diagnosis Permanent atrial fibrillation (HCC) Atrial [...] heart disease- Primary [facility] Diagnosis Permanent atrial fibrillation (HCC) Atrial [...] Shortness of breath documented in this encounter [facility] note* Diagnosis Permanent atrial fibrillation (HCC) Atrial [...] Solitary pulmonary nodule documented in this encounter [facility] note* Diagnosis Permanent atrial fibrillation (HCC) Atrial [...] (HCC) Atrial fibrillation documented in this encounter [facility] note* Diagnosis Permanent atrial fibrillation (HCC) Atrial [...] Abnormality of gait documented in this encounter [facility] note* Diagnosis Permanent atrial fibrillation (HCC) Atrial [...] leg edema Edema documented in this encounter [facility] note* Diagnosis Permanent atrial fibrillation (HCC) Atrial [...] Unspecified essential hypertension documented in this encounter [facility] note* Diagnosis Permanent atrial fibrillation (HCC) Atrial [...] diabetes mellitus (HCC) documented in this encounter [facility] note* Diagnosis Permanent atrial fibrillation (HCC) Atrial [...] (HCC) Atrial fibrillation documented in this encounter [facility] note* Diagnosis Permanent atrial fibrillation (HCC) Atrial [...] (HCC) Atrial fibrillation documented in this encounter [facility] note* Diagnosis Permanent atrial fibrillation (HCC) Atrial [...] diabetes mellitus (HCC) documented in this encounter [facility] note* Diagnosis Permanent atrial fibrillation (HCC) Atrial [...] Primary Atrial fibrillation documented in this encounter [facility] noteNo assessment information availableWMercy Health St. 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 Long-term (current) use of anticoagulants Laceration without foreign body of right hand, initial encounter Atrial fibrillation, unspecified type (HCC) documented in this encounter [facility] note* Diagnosis Permanent atrial fibrillation (HCC) Atrial [...] subsequent encounter- Primary [facility] Diagnosis Permanent atrial fibrillation (HCC) Atrial [...] subsequent encounter- Primary documented in this encounter [facility] note* Diagnosis Onset Date Resolution Status Admit Date Acute cholecystitis acute Septe mber 2024 10:50pm Atrial fibrillation with RVR acute October 26, 2024 10:50pm Essential hypertension acute Se ptember 2024 10:50pm Lactic acidosis acute October 26, 2024 10:50pm Sepsis acute October 26, 2024 10:50pm [facility] Work Phone: History and physical note Author Fernanda Triplett [facility] Note Date/Time October 27, 2024 12:10am [facility] Medical Records Department [address] [place] [address] H&P Exam - Hospitalist 10/26/24 2242 MR#: [id number] Acct: [id number] Name: TAZ FOSTER Rep #:[id number] : 1935 89 From: Fernanda Triplett MD [...] Former tobacco use who presents to the [facility] ED on 10/26/2024 with onset of [...] Tuesday, may be percutaneous drain but uncertain. 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 Reading Location: [facility] Gallbladder Ultrasound 10/26/24 18:37 IMPRESSION: 1. Distended gallbladder with gallstones, sludge, wall thickening and pericholecystic edema. Correlate clinically for signs of acute cholecystitis. 2. Mildly nodular liver contour with coarsened echotexture. This could represent early signs of hepatic cirrhosis. 3. Minimal ascites. Reading Location: [facility] Assessment & Plan Assessment/Plan (1) Sepsis: (2) Acute cholecystitis: PLAN: Plan The patient is an 89 y/o M w/ PMHx: GERD, Hx CVA w/ associated memory impairment, CKD stage III unclear subtype per GFR trending, Diabetes mellitus type II, PAF, HTN, HLD, GERD, Hx Histoplasmosis, BPH s/p TURP, Former tobacco use who presents to the [facility] ED on 10/26/2024 with onset of [...] Will admit to the ICU, will consult english language learner teacher per protocol, will maintain on IVFs with [...] per Hospitalist.) Charges/Coding Visit Charges Inpatient E&M: 27609 Init Hosp L3 Procedures Hospitalists Procedures: 93201 Advncd Care Plan 30 Min 10/27/24 0010 <Electronically signed by Fernanda Triplett MD> Cosigner Signature (if applicable): CC: Dr. Fernanda Triplett MD; Dr. Dipak Aguilar, DO~ Signed [facility] Work Phone: Hospital Discharge instructionsAdditional Instructions 1. Please get an appointment within the next 2 weeks to follow-up with your urologist at [facility] Main campus Date of Discharge: 11/06/24[facility] Work Phone: Reason for referral (narrative)* Outpatient Procedure (Routine) - Closed Specialty Diagnoses / Procedures Referred By Contac t Referred To Contact [facility] Diagnoses Preoperative clearance Procedures ECG COMPLETE ECG ROUTINE ECG W/LEAST 12 LDS W/I&R Crystal Pradhan APRN.[employer] [address] [place] [address] [facility] [place] [address] [place] [address] Referral ID Status Reason Start Date Expiration Date V isits Requested Visits Authorized [id number] Closed Auto-Generate d Referral 07/26/2022 07/26/2023 1 1 [facility] for referral (narrative)* Diagnostic Procedure Only (Routine) - Authorized Specialty Diagnoses / Procedures Referred By Contac t Referred To Contact [facility]CULAR [facility] FUN[facility]AL IMAGING Diagnoses Shortness of breath Procedures NM CARDIAC PERF STRESS/EXERCISE MYOCARDIAL SPECT MULTIPLE STUDIES Analisa Nicole MD [address], [address] [place] [address] Fax: [facility] [address] [place] [address] Referral ID Status Reason Start Date Expiration Date Visits Requested Visits Authorized [id number] Authorized Auto-Generat ed Referral 09/26/2023 10/11/2024 1 1 * Outpatient Procedure (Routine) - Authorized Specialty Diagnoses / Procedures Referred By Contac t Referred To Contact [facility] Diagnoses Shortness of breath Procedures ECHO ECHO TTHRC R-T 2D W/WOM-MODE COMPL SPEC&COLR D Analisa Nicole MD [address], [address] [place] [address] Fax: [facility] [address] [place] [address] Referral ID Status Reason Start Date Expiration Date Visits Requested Visits Authorized [id number] Authorized Auto-Generat ed Referral 09/26/2023 09/11/2024 1 1 * Outpatient Procedure (Routine) - New Request Specialty Diagnoses / Procedures Referred By Contac t Referred To Contact [facility] Diagnoses Screening for ischemic heart disease Procedures ECG COMPLETE ECG ROUTINE ECG W/LEAST 12 LDS W/I&R Analisa Nicole MD [address], [address] [place] [address] [facility] [place] [address] [place] [id number] Referral ID Status Reason Start Date Expiration Date Visits Requested Visits Authorized [id number] New Request Auto-Generat ed Referral 09/12/2023 09/07/2024 1 1 [facility] for referral (narrative)* Diagnostic Procedure Only (Routine) - New Request Specialty Diagnoses / Procedures Referred By Contac t Referred To Contact XR IMAGING Diagnoses Bilateral hip pain Procedures XR HIP BILATERAL 5V PEL/AP/LAT EACH HIP RADEX HIPS BILATERAL WITH PELVIS MINIMUM 5 VIEWS Jeffrey Zurita MD [address] [place] [id number] [place] [address] Referral ID Status Reason Start Date Expiration Date Visits Requested Visits Authorized [id number] New Request Auto-Generat ed Referral 11/10/2023 12/09/2024 1 1 * Diagnostic Procedure Only (Routine) - New Request Specialty Diagnoses / Procedures Referred By Contac t Referred To Contact XR IMAGING Diagnoses Bilateral hip pain Procedures XR KNEE GENERAL 4V AP BOTH/PA BOTH/LAT/MERC RIGHT RADIOLOGIC EXAM KNEE COMPLETE 4/MORE VIEWS Jeffrey Zurita MD [address] [place] [address] Xr Imaging [id number] Referral ID Status Reason Start Date Expiration Date Visits Requested Visits Authorized [id number] New Request Auto-Generat ed Referral 11/10/2023 12/09/2024 1 1 [facility] for referral (narrative)* Diagnostic Procedure Only (Routine) - Closed Specialty Diagnoses / Procedures Referred By Contac t Referred To Contact XR IMAGING Diagnoses Bilateral hip pain Procedures XR LUMBAR LIMITED 2V AP/LAT RADEX SPINE LUMBOSACRAL 2/3 VIEWS Jeffrey Zurita MD [address] [place] [address] [place] [address] Referral ID Status Reason Start Date Expiration Date V isits Requested Visits Authorized [id number] Closed Auto-Generate d Referral 11/23/2023 12/22/2024 1 1 * Diagnostic Procedure Only (Routine) - Closed Specialty Diagnoses / Procedures Referred By Contac t Referred To Contact XR IMAGING Diagnoses Bilateral hip pain Procedures XR HIP BILATERAL 5V PEL/AP/LAT EACH HIP RADEX HIPS BILATERAL WITH PELVIS MINIMUM 5 VIEWS Jeffrey Zurita MD [address] [place] [address] [place] [address] Referral ID Status Reason Start Date Expiration Date V isits Requested Visits Authorized [id number] Closed Auto-Generate d Referral 11/10/2023 12/09/2024 1 1 * Diagnostic Procedure Only (Routine) - Closed Specialty Diagnoses / Procedures Referred By Contac t Referred To Contact XR IMAGING Diagnoses Bilateral hip pain Procedures XR KNEE GENERAL 4V AP BOTH/PA BOTH/LAT/MERC RIGHT RADIOLOGIC EXAM KNEE COMPLETE 4/MORE VIEWS Jeffrey Zurita MD [address] [place] [address] [place] [address] Referral ID Status Reason Start Date Expiration Date V isits Requested Visits Authorized [id number] Closed Auto-Generate d Referral 11/10/2023 12/09/2024 1 1 [facility] for referral (narrative)* Diagnostic Procedure Only (Urgent) - Closed Specialty Diagnoses / Procedures Referred By Contac t Referred To Contact XR IMAGING Diagnoses Knee injury, right, initial encounter Procedures XR KNEE GENERAL 4V AP BOTH/PA BOTH/LAT/MERC RT KNEE AP-WGT/LAT/MERCHANT Wes Chavez APRN.[employer] [address] [place] [address] Imaging [place] [address] Referral ID Status Reason Start Date Expiration Date V isits Requested Visits Authorized [id number] Closed Auto-Generate d Referral 10/13/2020 11/12/2021 1 1 [facility] for referral (narrative)* Outpatient Procedure (Routine) - Authorized Specialty Diagnoses / Procedures Referred By Contac t Referred To Contact [facility] Diagnoses Wheezing Asthma-COPD overlap syndrome (HCC) SOB (shortness of breath) on exertion Decreased activity tolerance Productive cough Procedures LUNG VOLUMES Elisa Garcia APRN.CNP [address] [place] [address] [place] [address] Referral ID Status Reason Start Date Expiration Date Visits Requested Visits Authorized [id number] Authorized Auto-Generat ed Referral 11/29/2023 12/28/2024 1 1 * Outpatient Procedure (Routine) - Authorized Specialty Diagnoses / Procedures [facility] Diagnoses Wheezing Asthma-COPD overlap syndrome (HCC) SOB (shortness of breath) on exertion Decreased activity tolerance Productive cough Procedures SPIROMETRY - BASELINE AND POST DILATOR BRNCDILAT RSPSE SPMTRY PRE&POST-BRNCDILAT ADMN Elisa Garcia APRN.[employer] [address] [place] [address] [place] [address] Referral ID Status Reason Start Date Expiration Date Visits Requested Visits Authorized [id number] Authorized Auto-Generat ed Referral 11/29/2023 12/28/2024 1 1 * MRI/CT (Routine) - Authorized Specialty Diagnoses / Procedures Referred By Contac t Referred To Contact CT IMAGING Diagnoses Wheezing Asthma-COPD overlap syndrome (HCC) SOB (shortness of breath) on exertion Decreased activity tolerance Productive cough Procedures CT CHEST WO IVCON DIAGNOSTIC COMPUTED TOMOGRAPHY THORAX W/O CNTRST Elisa Garcia, MEDICAL RECORDS DIRECTOR.[employer] [address] [place] [address] [place] [address] Referral ID Status Reason Start Date Expiration Date Visits Requested Visits Authorized [id number] Authorized Auto-Generat ed Referral 11/29/2023 12/28/2024 1 1 Electronically signed by Elisa Garcia MEDICAL RECORDS DIRECTOR.[employer] at 11/29/2023 7:47 AM EDT [facility] for referral (narrative)No reason for referral information availableWMercy Health St. [facility] Work Phone: Reason for visit Narrative* Diagnostic Procedure Only (Routine) - Closed Specialty Diagnoses / Procedures Referred By Contac t Referred To Contact XR IMAGING Diagnoses Bilateral hip pain Procedures XR KNEE GENERAL 4V AP BOTH/PA BOTH/LAT/MERC RIGHT RADIOLOGIC EXAM KNEE COMPLETE 4/MORE VIEWS Jeffrey Zurita MD [address] [place] [address] [place] [address] Referral ID Status Reason Start Date Expiration Date V isits Requested Visits Authorized [id number] Closed Auto-Generate d Referral 11/10/2023 12/09/2024 1 1 [facility] for visit Narrative* Diagnostic Procedure Only (Urgent) - Closed Specialty Diagnoses / Procedures Referred By Contac t Referred To Contact XR IMAGING Diagnoses Knee injury, right, initial encounter Procedures XR KNEE GENERAL 4V AP BOTH/PA BOTH/LAT/MERC RT KNEE AP-WGT/LAT/MERCHANT Wes Chavez, MEDICAL RECORDS DIRECTOR.[employer] [address] [place] [address] [place] [address] Referral ID Status Reason Start Date Expiration Date V isits Requested Visits Authorized [id number] Closed Auto-Generate d Referral 10/13/2020 11/12/2021 1 1 [facility] for visit Narrative* Diagnostic Procedure Only (Routine) - Closed Specialty Diagnoses / Procedures Referred By Contac t Referred To Contact [facility] Diagnoses Shortness of breath Procedures NM CARDIAC PERF STRESS/EXERCISE MYOCARDIAL SPECT MULTIPLE STUDIES Analisa Nicole MD [address] [facility], [address] [place] [address] [facility] [address] [place] [id number] Referral ID Status Reason Start Date Expiration Date V isits Requested Visits Authorized [id number] Closed Auto-Generate d Referral 09/26/2023 10/11/2024 1 1 [facility]* Diagnostic Procedure Only (Routine) - Closed Specialty Diagnoses / Procedures Referred By Contac t Referred To Contact US IMAGING Diagnoses Hospital discharge follow-up Bilateral leg edema Procedures US DVT LOWER BILATERAL DUP-SCAN XTR VEINS COMPLETE BILATERAL STUDY Radha Berman, NEHA.[employer] [address] [place] [address] Phone: tel: fax: [place] [address] Referral ID Status Reason Start Date Expiration Date V isits Requested Visits Authorized [id number] Closed Auto-Generate d Referral 05/16/2024 06/15/2025 1 1 [facility] Summary Purpose Family History No Family History Records Found Relationship Condition Age at Onset Recorded Date/T rahul mother Malignant neoplasm of breast Unknown father Malignant neoplasm of colon Unknown Malignant melanoma Unknown brother Chronic obstructive pulmonary disease Unk nown grandfather Multiple myeloma Unknown Advance Directives No Advanced Directives Records FoundDocuments on File Type Date Recorded Patient Director [place] [employer] anation Advance Directive(s) 08/10/2017 8:34 AM Advance Directive Response Recorded Date/ Time Do you have a Healthcare Power of Insulation Blanket Maker? Yes September 11, 2024 10:22am Documents on File Type Date Recorded Patient Director [place] [employer] Expl anation Advance Directive(s) 09/27/2024 5:29 PM Advance Directive(s) 09/26/2024 8:52 AM Advance Directive Response Recorded Date/ Time Do you have a Healthcare Power of Insulation Blanket Maker? Yes September 11, 2024 10:22am Do you have a Healthcare Power of Insulation Blanket Maker? Yes October 14, 2024 7:42am Name of Medical Power of Insulation Blanket Maker Aniak Foster October 14, 2024 7:42am Advance Directive Response Recorded Date/ Time Do you have a Healthcare Power of Insulation Blanket Maker? Yes September 11, 2024 10:22am Do you have a Healthcare Power of Insulation Blanket Maker? Yes October 14, 2024 7:42am Name of Medical Power of Insulation Blanket Maker Anika Foster October 14, 2024 7:42am Do you have a Healthcare Power of Insulation Blanket Maker? Yes October 26, 2024 6:18pm Advance Directive Response Recorded Date/ Time Do you have a Healthcare Pow er of Insulation Blanket Maker? Yes September 11, 2024 10:22am Do you have a Healthcare Pow er of Insulation Blanket Maker? Yes October 14, 2024 7:42am Name of Medical Power of Insulation Blanket Maker Anika Foster October 14, 2024 7:42am Do you have a Healthcare Pow er of Insulation Blanket Maker? Yes October 27, 2024 12:42am Medications Administered [...] without esophagitis Procedures CONSULT TO GASTROENTEROLOGY OFFICE/OUTPATIENT [facility] 60-74 MINUTES Radha Berman, MEDICAL RECORDS DIRECTOR.[employer] [address] [place] [address] Referral ID Status Reason Start Date Expiration Date Visits Requested Visits Authorized [id number] Pending Review PCP Requested Referral 10/14/2022 10/14/2023 1 1 Specialty Diagnoses / Procedures Referred By Contac t Referred To Contact [facility] [place] Diagnoses Lumbar spondylosis Procedures CONSULT TO [facility] OFFICE/OUTPATIENT [facility] 60 MINUTES Jeffrey Zurita MD [address] [place] [address] Referral ID Status Reason Start Date Expiration Date Visits Requested Visits Authorized [id number] Authorized PCP Requested Referral 11/23/2023 11/22/2024 1 1 Specialty Diagnoses / Procedures Referred By Contac t Referred To Contact XR IMAGING Diagnoses Bilateral hip pain Procedures XR LUMBAR LIMITED 2V AP/LAT RADEX SPINE LUMBOSACRAL 2/3 VIEWS Jeffrey Zurita MD [address] [place] [address] [place] [address] Referral ID Status Reason Start Date Expiration Date V isits Requested Visits Authorized [id number] Closed Auto-Generate d Referral 11/23/2023 12/22/2024 1 1 Specialty Diagnoses / Procedures Referred By Contac t Referred To Contact Pulmonary Disease Diagnoses Lung nodule Procedures CONSULT TO LUNG NODULE CLINIC OFFICE/OUTPATIENT [facility] 60 MINUTES Elisa Garcia, MEDICAL RECORDS DIRECTOR.[employer] [address] [place] [address] Referral ID Status Reason Start Date Expiration Date Visits Requested Visits Authorized [id number] Authorized PCP Requested Referral 12/12/2024 1 1 [...] 26, 2024 10:50pm Chief Complaint Admit Date FALL September 11, 2024 10:1 3am HTN October 14, [...] section and content) DATE CREATED AUTHOR 11/28/2017 [facility] DATE CREATED AUTHOR AUTHOR'S ORGANIZ ATION 10/03/2023 [facility] DATE CREATED AUTHOR AUTHOR'S ORGANIZ ATION 11/26/2023 [facility] DATE CREATED AUTHOR AUTHOR'S ORGANIZ ATION 01/26/2024 [facility] DATE CREATED AUTHOR AUTHOR'S ORGANIZ ATION 11/09/2024 [facility] DATE CREATED AUTHOR AUTHOR'S ORGANIZ ATION 11/10/2024 [facility] Source Comments (unrecognize d section and content) In the event this informatio n is protected by the Federal Confidentiality of Alcohol and Drug Abuse Patient Records regulations: The Federal rules restrict any use of the information to criminally investigate or prosecute any alcohol or drug abuse patient.[facility] the event this information is protected by the Federal Confidentiality of Alcohol and Drug Abuse Patient Records regulations: The Federal rules restrict any use of the information to criminally investigate or prosecute any alcohol or drug abuse patient.[facility] the event this information is protected by the Federal Confidentiality of Alcohol and Drug Abuse Patient Records regulations: The Federal rules restrict any use of the information to criminally investigate or prosecute any alcohol or drug abuse patient.[facility] Campus[facility] the event this information is protected by the Federal Confidentiality of Alcohol and Drug Abuse Patient Records regulations: The Federal rules restrict any use of the information to criminally investigate or prosecute any alcohol or drug abuse patient.[facility] Campus[facility] the event this information is protected by the Federal Confidentiality of Alcohol and Drug Abuse Patient Records regulations: The Federal rules restrict any use of the information to criminally investigate or prosecute any alcohol or drug abuse patient.[facility] CampusIn the event this information is protected by the Federal Confidentiality of Alcohol and Drug Abuse Patient Records regulations: The Federal rules restrict any use of the information to criminally investigate or prosecute any alcohol or drug abuse patient.[facility] Campus[facility] the event this information is protected by the Federal Confidentiality of Alcohol and Drug Abuse Patient Records regulations: The Federal rules restrict any use of the information to criminally investigate or prosecute any alcohol or drug abuse patient.[facility] the event this information is protected by the Federal Confidentiality of Alcohol and Drug Abuse Patient Records regulations: The Federal rules restrict any use of the information to criminally investigate or prosecute any alcohol or drug abuse patient.[facility] Campus[facility] the event this information is protected by the Federal Confidentiality of Alcohol and Drug Abuse Patient Records regulations: The Federal rules restrict any use of the information to criminally investigate or prosecute any alcohol or drug abuse patient.[facility] Campus[facility] the event this information is protected by the Federal Confidentiality of Alcohol and Drug Abuse Patient Records regulations: The Federal rules restrict any use of the information to criminally investigate or prosecute any alcohol or drug abuse patient.[facility] the event this information is protected by the Federal Confidentiality of Alcohol and Drug Abuse Patient Records regulations: The Federal rules restrict any use of the information to criminally investigate or prosecute any alcohol or drug abuse patient.[facility] Campus[facility] the event this information is protected by the Federal Confidentiality of Alcohol and Drug Abuse Patient Records regulations: The Federal rules restrict any use of the information to criminally investigate or prosecute any alcohol or drug abuse patient.[facility] Campus[facility] the event this information is protected by the Federal Confidentiality of Alcohol and Drug Abuse Patient Records regulations: The Federal rules restrict any use of the information to criminally investigate or prosecute any alcohol or drug abuse patient.[facility] Campus[facility] the event this information is protected by the Federal Confidentiality of Alcohol and Drug Abuse Patient Records regulations: The Federal rules restrict any use of the information to criminally investigate or prosecute any alcohol or drug abuse patient.[facility] CampusIn the event this information is protected by the Federal Confidentiality of Alcohol and Drug Abuse Patient Records regulations: The Federal rules restrict any use of the information to criminally investigate or prosecute any alcohol or drug abuse patient.[facility] CampusIn the event this information is protected by the Federal Confidentiality of Alcohol and Drug Abuse Patient Records regulations: The Federal rules restrict any use of the information to criminally investigate or prosecute any alcohol or drug abuse patient.[facility] CampusIn the event this information is protected by the Federal Confidentiality of Alcohol and Drug Abuse Patient Records regulations: The Federal rules restrict any use of the information to criminally investigate or prosecute any alcohol or drug abuse patient.[facility] CampusIn the event this information is protected by the Federal Confidentiality of Alcohol and Drug Abuse Patient Records regulations: The Federal rules restrict any use of the information to criminally investigate or prosecute any alcohol or drug abuse patient.[facility] CampusIn the event this information is protected by the Federal Confidentiality of Alcohol and Drug Abuse Patient Records regulations: The Federal rules restrict any use of the information to criminally investigate or prosecute any alcohol or drug abuse patient.[facility] CampusIn the event this information is protected by the Federal Confidentiality of Alcohol and Drug Abuse Patient Records regulations: The Federal rules restrict any use of the information to criminally investigate or prosecute any alcohol or drug abuse patient.[facility] CampusIn the event this information is protected by the Federal Confidentiality of Alcohol and Drug Abuse Patient Records regulations: The Federal rules restrict any use of the information to criminally investigate or prosecute any alcohol or drug abuse patient.[facility] CampusIn the event this information is protected by the Federal Confidentiality of Alcohol and Drug Abuse Patient Records regulations: The Federal rules restrict any use of the information to criminally investigate or prosecute any alcohol or drug abuse patient.[facility] CampusIn the event this information is protected by the Federal Confidentiality of Alcohol and Drug Abuse Patient Records regulations: The Federal rules restrict any use of the information to criminally investigate or prosecute any alcohol or drug abuse patient.[facility] CampusIn the event this information is protected by the Federal Confidentiality of Alcohol and Drug Abuse Patient Records regulations: The Federal rules restrict any use of the information to criminally investigate or prosecute any alcohol or drug abuse patient.[facility] CampusIn the event this information is protected by the Federal Confidentiality of Alcohol and Drug Abuse Patient Records regulations: The Federal rules restrict any use of the information to criminally investigate or prosecute any alcohol or drug abuse patient.[facility] CampusIn the event this information is protected by the Federal Confidentiality of Alcohol and Drug Abuse Patient Records regulations: The Federal rules restrict any use of the information to criminally investigate or prosecute any alcohol or drug abuse patient.[facility] CampusIn the event this information is protected by the Federal Confidentiality of Alcohol and Drug Abuse Patient Records regulations: The Federal rules restrict any use of the information to criminally investigate or prosecute any alcohol or drug abuse patient.[facility] CampusIn the event this information is protected by the Federal Confidentiality of Alcohol and Drug Abuse Patient Records regulations: The Federal rules restrict any use of the information to criminally investigate or prosecute any alcohol or drug abuse patient.[facility] CampusIn the event this information is protected by the Federal Confidentiality of Alcohol and Drug Abuse Patient Records regulations: The Federal rules restrict any use of the information to criminally investigate or prosecute any alcohol or drug abuse patient.[facility] CampusIn the event this information is protected by the Federal Confidentiality of Alcohol and Drug Abuse Patient Records regulations: The Federal rules restrict any use of the information to criminally investigate or prosecute any alcohol or drug abuse patient.[facility] CampusIn the event this information is protected by the Federal Confidentiality of Alcohol and Drug Abuse Patient Records regulations: The Federal rules restrict any use of the information to criminally investigate or prosecute any alcohol or drug abuse patient.[facility] CampusIn the event this information is protected by the Federal Confidentiality of Alcohol and Drug Abuse Patient Records regulations: The Federal rules restrict any use of the information to criminally investigate or prosecute any alcohol or drug abuse patient.[facility] CampusIn the event this information is protected by the Federal Confidentiality of Alcohol and Drug Abuse Patient Records regulations: The Federal rules restrict any use of the information to criminally investigate or prosecute any alcohol or drug abuse patient.[facility] CampusIn the event this information is protected by the Federal Confidentiality of Alcohol and Drug Abuse Patient Records regulations: The Federal rules restrict any use of the information to criminally investigate or prosecute any alcohol or drug abuse patient.[facility] CampusIn the event this information is protected by the Federal Confidentiality of Alcohol and Drug Abuse Patient Records regulations: The Federal rules restrict any use of the information to criminally investigate or prosecute any alcohol or drug abuse patient.[facility] CampusIn the event this information is protected by the Federal Confidentiality of Alcohol and Drug Abuse Patient Records regulations: The Federal rules restrict any use of the information to criminally investigate or prosecute any alcohol or drug abuse patient.[facility] CampusIn the event this information is protected by the Federal Confidentiality of Alcohol and Drug Abuse Patient Records regulations: The Federal rules restrict any use of the information to criminally investigate or prosecute any alcohol or drug abuse patient.[facility] CampusIn the event this information is protected by the Federal Confidentiality of Alcohol and Drug Abuse Patient Records regulations: The Federal rules restrict any use of the information to criminally investigate or prosecute any alcohol or drug abuse patient.[facility] CampusIn the event this information is protected by the Federal Confidentiality of Alcohol and Drug Abuse Patient Records regulations: The Federal rules restrict any use of the information to criminally investigate or prosecute any alcohol or drug abuse patient.[facility] CampusIn the event this information is protected by the Federal Confidentiality of Alcohol and Drug Abuse Patient Records regulations: The Federal rules restrict any use of the information to criminally investigate or prosecute any alcohol or drug abuse patient.[facility] CampusIn the event this information is protected by the Federal Confidentiality of Alcohol and Drug Abuse Patient Records regulations: The Federal rules restrict any use of the information to criminally investigate or prosecute any alcohol or drug abuse patient.[facility] CampusIn the event this information is protected by the Federal Confidentiality of Alcohol and Drug Abuse Patient Records regulations: The Federal rules restrict any use of the information to criminally investigate or prosecute any alcohol or drug abuse patient.[facility] CampusIn the event this information is protected by the Federal Confidentiality of Alcohol and Drug Abuse Patient Records regulations: The Federal rules restrict any use of the information to criminally investigate or prosecute any alcohol or drug abuse patient.[facility] CampusIn the event this information is protected by [...] or prosecute any alcohol or drug abuse patient.[facility] CampusIn the event this information is protected by the Federal Confidentiality of Alcohol and Drug Abuse Patient Records regulations: The Federal rules restrict any use of the information to criminally investigate or prosecute any alcohol or drug abuse patient.[facility] CampusIn the event this information is protected by the Federal Confidentiality of Alcohol and Drug Abuse Patient Records regulations: The Federal rules restrict any use of the information to criminally investigate or prosecute any alcohol or drug abuse patient.[facility] CampusIn the event this information is protected by the Federal Confidentiality of Alcohol and Drug Abuse Patient Records regulations: The Federal rules restrict any use of the information to criminally investigate or prosecute any alcohol or drug abuse patient.[facility] CampusIn the event this information is protected by the Federal Confidentiality of Alcohol and Drug Abuse Patient Records regulations: The Federal rules restrict any use of the information to criminally investigate or prosecute any alcohol or drug abuse patient.[facility] CampusIn the event this information is protected by the Federal Confidentiality of Alcohol and Drug Abuse Patient Records regulations: The Federal rules restrict any use of the information to criminally investigate or prosecute any alcohol or drug abuse patient.[facility] CampusIn the event this information is protected by the Federal Confidentiality of Alcohol and Drug Abuse Patient Records regulations: The Federal rules restrict any use of the information to criminally investigate or prosecute any alcohol or drug abuse patient.[facility] CampusIn the event this information is protected by the Federal Confidentiality of Alcohol and Drug Abuse Patient Records regulations: The Federal rules restrict any use of the information to criminally investigate or prosecute any alcohol or drug abuse patient.[facility] CampusIn the event this information is protected by the Federal Confidentiality of Alcohol and Drug Abuse Patient Records regulations: The Federal rules restrict any use of the information to criminally investigate or prosecute any alcohol or drug abuse patient.[facility] CampusIn the event this information is protected by the Federal Confidentiality of Alcohol and Drug Abuse Patient Records regulations: The Federal rules restrict any use of the information to criminally investigate or prosecute any alcohol or drug abuse patient.[facility] CampusIn the event this information is protected by the Federal Confidentiality of Alcohol and Drug Abuse Patient Records regulations: The Federal rules restrict any use of the information to criminally investigate or prosecute any alcohol or drug abuse patient.[facility] CampusIn the event this information is protected by the Federal Confidentiality of Alcohol and Drug Abuse Patient Records regulations: The Federal rules restrict any use of the information to criminally investigate or prosecute any alcohol or drug abuse patient.[facility] CampusIn the event this information is protected by the Federal Confidentiality of Alcohol and Drug Abuse Patient Records regulations: The Federal rules restrict any use of the information to criminally investigate or prosecute any alcohol or drug abuse patient.[facility] CampusIn the event this information is protected by the Federal Confidentiality of Alcohol and Drug Abuse Patient Records regulations: The Federal rules restrict any use of the information to criminally investigate or prosecute any alcohol or drug abuse patient.[facility] CampusIn the event this information is protected by the Federal Confidentiality of Alcohol and Drug Abuse Patient Records regulations: The Federal rules restrict any use of the information to criminally investigate or prosecute any alcohol or drug abuse patient.[facility] CampusIn the event this information is protected by the Federal Confidentiality of Alcohol and Drug Abuse Patient Records regulations: The Federal rules restrict any use of the information to criminally investigate or prosecute any alcohol or drug abuse patient.[facility] CampusIn the event this information is protected by the Federal Confidentiality of Alcohol and Drug Abuse Patient Records regulations: The Federal rules restrict any use of the information to criminally investigate or prosecute any alcohol or drug abuse patient.[facility] CampusIn the event this information is protected by the Federal Confidentiality of Alcohol and Drug Abuse Patient Records regulations: The Federal rules restrict any use of the information to criminally investigate or prosecute any alcohol or drug abuse patient.[facility] CampusIn the event this information is protected by the Federal Confidentiality of Alcohol and Drug Abuse Patient Records regulations: The Federal rules restrict any use of the information to criminally investigate or prosecute any alcohol or drug abuse patient.[facility] CampusIn the event this information is protected by the Federal Confidentiality of Alcohol and Drug Abuse Patient Records regulations: The Federal rules restrict any use of the information to criminally investigate or prosecute any alcohol or drug abuse patient.[facility] CampusIn the event this information is protected by the Federal Confidentiality of Alcohol and Drug Abuse Patient Records regulations: The Federal rules restrict any use of the information to criminally investigate or prosecute any alcohol or drug abuse patient.[facility] CampusIn the event this information is protected by the Federal Confidentiality of Alcohol and Drug Abuse Patient Records regulations: The Federal rules restrict any use of the information to criminally investigate or prosecute any alcohol or drug abuse patient.[facility] CampusIn the event this information is protected by the Federal Confidentiality of Alcohol and Drug Abuse Patient Records regulations: The Federal rules restrict any use of the information to criminally investigate or prosecute any alcohol or drug abuse patient.[facility] CampusIn the event this information is protected by the Federal Confidentiality of Alcohol and Drug Abuse Patient Records regulations: The Federal rules restrict any use of the information to criminally investigate or prosecute any alcohol or drug abuse patient.[facility] CampusIn the event this information is protected by the Federal Confidentiality of Alcohol and Drug Abuse Patient Records regulations: The Federal rules restrict any use of the information to criminally investigate or prosecute any alcohol or drug abuse patient.[facility] CampusIn the event this information is protected by the Federal Confidentiality of Alcohol and Drug Abuse Patient Records regulations: The Federal rules restrict any use of the information to criminally investigate or prosecute any alcohol or drug abuse patient.[facility] CampusIn the event this information is protected by the Federal Confidentiality of Alcohol and Drug Abuse Patient Records regulations: The Federal rules restrict any use of the information to criminally investigate or prosecute any alcohol or drug abuse patient.[facility] CampusIn the event this information is protected by the Federal Confidentiality of Alcohol and Drug Abuse Patient Records regulations: The Federal rules restrict any use of the information to criminally investigate or prosecute any alcohol or drug abuse patient.[facility] CampusIn the event this information is protected by the Federal Confidentiality of Alcohol and Drug Abuse Patient Records regulations: The Federal rules restrict any use of the information to criminally investigate or prosecute any alcohol or drug abuse patient.[facility] CampusIn the event this information is protected by the Federal Confidentiality of Alcohol and Drug Abuse Patient Records regulations: The Federal rules restrict any use of the information to criminally investigate or prosecute any alcohol or drug abuse patient.[facility] CampusIn the event this information is protected by the Federal Confidentiality of Alcohol and Drug Abuse Patient Records regulations: The Federal rules restrict any use of the information to criminally investigate or prosecute any alcohol or drug abuse patient.[facility] CampusIn the event this information is protected by the Federal Confidentiality of Alcohol and Drug Abuse Patient Records regulations: The Federal rules restrict any use of the information to criminally investigate or prosecute any alcohol or drug abuse patient.[facility] CampusIn the event this information is protected by the Federal Confidentiality of Alcohol and Drug Abuse Patient Records regulations: The Federal rules restrict any use of the information to criminally investigate or prosecute any alcohol or drug abuse patient.[facility] CampusIn the event this information is protected by the Federal Confidentiality of Alcohol and Drug Abuse Patient Records regulations: The Federal rules restrict any use of the information to criminally investigate or prosecute any alcohol or drug abuse patient.[facility] CampusIn the event this information is protected by the Federal Confidentiality of Alcohol and Drug Abuse Patient Records regulations: The Federal rules restrict any use of the information to criminally investigate or prosecute any alcohol or drug abuse patient.[facility] Care Teams (unrecognized sec tion and content) Refrigeration Service Technician Relationship Specialty Start Date End Date Dipak Aguilar, DO [address] [facility] [place] [address] PCP - General Family Practice 11/10/15 Refrigeration Service Technician Relationship Specialty Start Date End Date Dipak Aguilar, DO [address] [facility] [place] [address] PCP - General Family Practice 11/10/15 Refrigeration Service Technician Relationship Specialty Start Date End Date Dipak Aguilar, DO [address] [facility] [place] [address] PCP - General Family Medicine 11/10/15 Refrigeration Service Technician Relationship Specialty Start Date End Date Dipak Aguilar, DO [address] [facility] [place] [address] PCP - General Family Medicine 11/10/15 Refrigeration Service Technician Relationship Specialty Start Date End Date Dipak Aguilar, DO [address] [facility] [place] [address] PCP - General Family Medicine 11/10/15 Refrigeration Service Technician Relationship Specialty Start Date End Date Dipak Aguilar, DO [address] [facility] [place] [address] PCP - General Family Medicine 11/10/15 Refrigeration Service Technician Relationship Specialty Start Date End Date Dipak Aguilar, DO [address] [place] [address] PCP - General Family Medicine 11/10/15 Refrigeration Service Technician Relationship Specialty Start Date End Date Dipak Aguilar, DO [address] [place] [address] PCP - General Family Medicine 11/10/15 Refrigeration Service Technician Relationship Specialty Start Date End Date Dipak Aguilar, DO [address] [place] [address] PCP - General Family Medicine 11/10/15 Refrigeration Service Technician Relationship Specialty Start Date End Date Dipak Aguilar, DO [address] [place] [address] PCP - General Family Medicine 11/10/15 Refrigeration Service Technician Relationship Specialty Start Date End Date Dipak Aguilar, DO [address] [place] [address] PCP - General Family Medicine 11/10/15 Refrigeration Service Technician Relationship Specialty Start Date End Date Dipak Aguilar, DO [address] [place] [address] PCP - General Family Medicine 11/10/15 Refrigeration Service Technician Relationship Specialty Start Date End Date Dipak Aguilar, DO [address] [place] [address] PCP - General Family Medicine 11/10/15 Refrigeration Service Technician Relationship Specialty Start Date End Date Dipak Aguilar, DO [address] [place] [address] PCP - General Family Medicine 11/10/15 Refrigeration Service Technician Relationship Specialty Start Date End Date Dipak Aguilar, DO [address] [place] [address] PCP - General Family Medicine 11/10/15 Refrigeration Service Technician Relationship Specialty Start Date End Date Dipak Aguilar DO [address] [place] [address] PCP - General Family Medicine 11/10/15 Refrigeration Service Technician Relationship Specialty Start Date End Date Dipak Aguilar DO [address] [place] [address] PCP - General Family Medicine 11/10/15 Refrigeration Service Technician Relationship Specialty Start Date End Date Dipak Aguilar DO [address] [place] [address] PCP - General Family Medicine 11/10/15 Refrigeration Service Technician Relationship Specialty Start Date End Date Dipak Aguilar, [address] [place] [address] PCP - General Family Medicine 11/10/15 Refrigeration Service Technician Relationship Specialty Start Date End Date Dipak Aguilar DO [address] [place] [address] PCP - General Family Medicine 11/10/15 Refrigeration Service Technician Relationship Specialty Start Date End Date Dipak Aguilar, [address] [place] [address] PCP - General Family Medicine 11/10/15 Refrigeration Service Technician Relationship Specialty Start Date End Date Dipak Aguilar, [address] [place] [address] PCP - General Family Medicine 11/10/15 Refrigeration Service Technician Relationship Specialty Start Date End Date Dipak Aguilar, [address] [place] [address] PCP - General Family Medicine 11/10/15 Refrigeration Service Technician Relationship Specialty Start Date End Date Dipak Aguilar DO [address] [place] [address] PCP - General Family Medicine 11/10/15 Refrigeration Service Technician Relationship Specialty Start Date End Date Dipak Aguilar DO [address] [place] [address] PCP - General Family Medicine 11/10/15 Refrigeration Service Technician Relationship Specialty Start Date End Date Dipak Aguilar DO [address] [place] [address] PCP - General Family Medicine 11/10/15 Refrigeration Service Technician Relationship Specialty Start Date End Date Dipak Aguilar DO [address] [place] [address] PCP - General Family Medicine 11/10/15 Refrigeration Service Technician Relationship Specialty Start Date End Date Dpiak Aguilar DO [address] [place] [address] PCP - General Family Medicine 11/10/15 Refrigeration Service Technician Relationship Specialty Start Date End Date Dipak Aguilar DO [address] [place] [address] PCP - General Family Medicine 11/10/15 Refrigeration Service Technician Relationship Specialty Start Date End Date Dipak Aguilar DO [address] [place] [address] PCP - General Family Medicine 11/10/15 Refrigeration Service Technician Relationship Specialty Start Date End Date Dipak Aguilar DO [address] [place] [address] PCP - General Family Medicine 11/10/15 Ananya Corbin, LUPE [address] [id number] Leaded Glass Installer Family Medicine 10/02/2009/23 Refrigeration Service Technician Relationship Specialty Start Date End Date Dipak Aguilar DO [address] [place] [address] PCP - General Family Medicine 11/10/15 Refrigeration Service Technician Relationship Specialty Start Date End Date Dipak Aguilar DO [address] [place] [address] PCP - General Family Medicine 11/10/15 Refrigeration Service Technician Relationship Specialty Start Date End Date Dipak Aguilar, [address] [place] [address] PCP - General Family Medicine 11/10/15 Refrigeration Service Technician Relationship Specialty Start Date End Date Dipak Aguilar DO [address] [place] [address] PCP - General Family Medicine 11/10/15 Refrigeration Service Technician Relationship Specialty Start Date End Date Dipak Aguilar DO [address] [place] [address] PCP - General Family Medicine 11/10/15 Refrigeration Service Technician Relationship Specialty Start Date End Date Dipak Aguilar, [address] [place] [address] PCP - General Family Medicine 11/10/15 Refrigeration Service Technician Relationship Specialty Start Date End Date Dipak Aguilar DO [address] [place] [address] PCP - General Family Medicine 11/10/15 Refrigeration Service Technician Relationship Specialty Start Date End Date Dipak Aguilar DO [address] [place] [address] PCP - General Family Medicine 11/10/15 Refrigeration Service Technician Relationship Specialty Start Date End Date Dipak Aguilar DO [address] [facility] [place] [address] PCP - General Family Medicine 11/10/15 Radha Berman, MEDICAL RECORDS DIRECTOR.[employer] [address] [place] [address] Sanding Machine Tender [facility] 01/29/24 [facility], MEDICAL RECORDS DIRECTOR.[employer] [address] [place] [address] [facility] Refrigeration Service Technician Relationship Specialty Start Date End Date Dipak Aguilar DO [address] [place] [address] PCP - General Family Medicine 11/10/15 Radha Berman, MEDICAL RECORDS DIRECTOR.[employer] [address] [place] [address] Sanding Machine Tender [facility] 01/29/24 JoseElisa, MEDICAL RECORDS DIRECTOR.[employer] [address] [place] [address] Sanding Machine Tender [facility] 01/29/24 Refrigeration Service Technician Relationship Specialty Start Date End Date Dipak Aguilar DO [address] [place] [address] PCP - General Family Medicine 11/10/15 Elisa Garcia, MEDICAL RECORDS DIRECTOR.[employer] [address] [place] [address] Sanding Machine Tender [facility] 01/29/24 Refrigeration Service Technician Relationship Specialty Start Date End Date Dipak Aguilar DO [address] [facility] [place] [address] PCP - General Family Medicine 11/10/15 JoseElisa, MEDICAL RECORDS DIRECTOR.[employer] [address] [facility] [place] [address] Sanding Machine Tender [facility] 01/29/24 Refrigeration Service Technician Relationship Specialty Start Date End Date Dipak Aguilar DO [address] [facility] [place] [address] PCP - General Family Medicine 11/10/15 JoseElisa, MEDICAL RECORDS DIRECTOR.[employer] [address] [facility] [place] [address] Sanding Machine Tender [facility] 01/29/24 Refrigeration Service Technician Relationship Specialty Start Date End Date Dipak Aguilar DO [address] [facility] [place] [address] PCP - General Family Medicine 11/10/15 JoseElisa, MEDICAL RECORDS DIRECTOR.[employer] [address] [facility] [place] [address] Sanding Machine Tender [facility] 01/29/24 Refrigeration Service Technician Relationship Specialty Start Date End Date Dipak Aguilar DO [address] [facility] [place] [address] PCP - General Family Medicine 11/10/15 Elisa Garcia, MEDICAL RECORDS DIRECTOR.[employer] [address] [place] [address] Sanding Machine Tender [facility] 01/29/24 Refrigeration Service Technician Relationship Specialty Start Date End Date Dipak Aguilar DO [address] [place] [address] PCP - General Family Medicine 11/10/15 Elisa Garcia, MEDICAL RECORDS DIRECTOR.[employer] [address] [place] [address] Sanding Machine Tender [facility] 01/29/24 Refrigeration Service Technician Relationship Specialty Start Date End Date Dipak Aguilar DO [address] [place] [address] PCP - General Family Medicine 11/10/15 Elisa Garcia, MEDICAL RECORDS DIRECTOR.[employer] [address] [place] [address] Sanding Machine Tender [facility] 01/29/24 Refrigeration Service Technician Relationship Specialty Start Date End Date Dipak Aguilar DO [address] [place] [address] PCP - General Family Medicine 11/10/15 Elisa Garcia, MEDICAL RECORDS DIRECTOR.[employer] [address] [place] [address] Sanding Machine Tender [facility] 01/29/24 Refrigeration Service Technician Relationship Specialty Start Date End Date Dipak Aguilar DO [address] [place] [address] PCP - General Family Medicine 11/10/15 Elisa Garcia, MEDICAL RECORDS DIRECTOR.[employer] [address] [place] [address] Sanding Machine Tender [facility] 01/29/24 Refrigeration Service Technician Relationship Specialty Start Date End Date Dipak Aguilar DO [address] [place] [address] PCP - General Family Medicine 11/10/15 Elisa Garcia, MEDICAL RECORDS DIRECTOR.[employer] [address] [place] [address] Sanding Machine Tender [facility] 01/29/24 Refrigeration Service Technician Relationship Specialty Start Date End Date Dipak Aguilar DO [address] [facility] [place] [address] PCP - General Family Medicine 11/10/15 Elisa Garcia, MEDICAL RECORDS DIRECTOR.[employer] [address] [facility] [place] [address] Sanding Machine Tender [facility] 01/29/24 Refrigeration Service Technician Relationship Specialty Start Date End Date Dipak Aguilar DO [address] [place] [address] PCP - General Family Medicine 11/10/15 Elisa Garcia, MEDICAL RECORDS DIRECTOR.[employer] [address] [place] [address] Sanding Machine Tender [facility] 01/29/24 Refrigeration Service Technician Relationship Specialty Start Date End Date Dipak Aguilar DO [address] [facility] [address] PCP - General Family Medicine 11/10/15 Elisa Garcia, MEDICAL RECORDS DIRECTOR.[employer] [address] [facility] [place] [place] [address] [facility] 01/[facility]/24 Refrigeration Service Technician Relationship Specialty Start Date End Date Dipak Aguilar DO [address] [place] [address] PCP - General Family Medicine 11/10/15 Elisa Garcia, MEDICAL RECORDS DIRECTOR.[employer] [address] [place], [place] [address] [facility] 01/29/24 Ruma Hines, MEDICAL RECORDS DIRECTOR.[employer] [address] [place], [place] [address] [facility] 08/06/24 Refrigeration Service Technician Relationship Specialty Start Date End Date Dipak Aguilar DO [address] [place] [address] PCP - General Family Medicine 11/10/15 JoseElisa, MEDICAL RECORDS DIRECTOR.[employer] [address] [place] [address] [facility] 01/29/24 Ruma Hines, MEDICAL RECORDS DIRECTOR.[employer] [address] [place], [place] [address] [facility] 08/06/24 Team Status: Active Member Role/Relationship Status Dates Dr. Dipak Aguilar DO Primary Care Provider Active Team Status: Inactive Member Role/Relationship Status Dates Dr. Dipak Aguilar DO Primary Care Provider Active Start: September 11, 2024 End: September 11, 2024 Dr. Sukhdev Mark MD Emergency Provider Active Sta rt: September 11, 2024 End: September 11, 2024 Refrigeration Service Technician Relationship Specialty Start Date End Date Dipak Aguilar DO [address] [place], [place] [address] PCP - General Family Medicine 11/10/15 JoseElisa, MEDICAL RECORDS DIRECTOR.[employer] [address] [place] [address] Sanding Machine Tender [facility] 01/29/24 Ruma Hines, MEDICAL RECORDS DIRECTOR.[employer] [address] [place] [address] Sanding Machine Tender [facility] 08/06/24 Refrigeration Service Technician Relationship Specialty Start Date End Date Dipak Aguilar DO [address] [place] [address] PCP - General Family Medicine 11/10/15 Elisa Garcia, MEDICAL RECORDS DIRECTOR.[employer] [address] [place] [address] Sanding Machine Tender [facility] 01/29/24 Ruma Hines, MEDICAL RECORDS DIRECTOR.[employer] [address] [place] [address] Sanding Machine Tender [facility] 08/06/24 Refrigeration Service Technician Relationship Specialty Start Date End Date Dipak Aguilar DO [address] [place] [address] PCP - General Family Medicine 11/10/15 Elisa Garcia, MEDICAL RECORDS DIRECTOR.[employer] [address] [place] [address] Sanding Machine Tender [facility] 01/29/24 Ruma Hines, MEDICAL RECORDS DIRECTOR.[employer] [address] [place] [address] Sanding Machine Tender [facility] 08/06/24 Refrigeration Service Technician Relationship Specialty Start Date End Date Dipak Aguilar DO [address] [place] [address] PCP - General Family Medicine 11/10/15 Elisa Garcia, MEDICAL RECORDS DIRECTOR.[employer] [address] [place], [place] [address] Sanding Machine Tender [facility] 01/29/24 Ruma Hines, MEDICAL RECORDS DIRECTOR.[employer] [address] [place], [place] [address] [facility]24 Team Status: Inactive Member Role/Relationship Status [...] Provider Active St art: October 26, 2024 Refrigeration Service Technician Relationship Specialty Start Date End Date Dipak Aguilar DO [address] [place], [place] [address] PCP - General Family Medicine 11/10/15 Elisa Garcia, NEHA.[employer] [address] [place], [place] [address] Sanding Machine Tender [facility] 01/29/24 Ruma Hines, MEDICAL RECORDS DIRECTOR.[employer] [address] [place], [place] [address] Sanding Machine Tender [facility] 08/06/24 Team Status: Inactive Member Role/Relationship [...] rt: October 27, 2024 Vidhya Byrd NP, FABRICATING MACHINE OPERATOR-C Other Provider Active Start: October 27, 2024 Oriana Correia , FABRICATING MACHINE OPERATOR-C Other Provider Active St art: October 27, [...] rt: October 27, 2024 Vidhya Byrd NP, FABRICATING MACHINE OPERATOR-C Other Provider Active Start: October 27, 2024 Oriana Correia , FABRICATING MACHINE OPERATOR-C Other Provider Active St art: October 27, [...] rt: October 28, 2024 Vidhya Byrd NP, FABRICATING MACHINE OPERATOR-C Other Provider Active Start: October 28, 2024 Oriana Correia , ISI-C Other Provider Active St art: October 28, 2024 Dr. Khai Bose MD Attending Provider Active Start: October 28, 2024 Dr. Khai Bose MD Other Provider Active Sta rt: October 28, 2024 Team Status: Active Member Role/Relationship Status Dates Dr. Dipak Aguilar , Primary Care Provider Active Start: October 28, [...] Sta rt: October 28, 2024 Vidhya Byrd FABRICATING MACHINE OPERATOR, FABRICATING MACHINE OPERATOR-C Other Provider Active Start: October 28, 2024 Oriana Correia NP-C Other Provider Active St art: October 28, 2024 Dr. Khai Bsoe MD Other Provider Active Sta rt: October 28, 2024 Team Status: Active Member Role/Relationship Status Dates Dr. Dipak Aguilar DO Primary Care Provider Active Start: October 29, 2024 Akira Blanco MD Emergency Provider Active Star t: October 29, 2024 Dr. Fernanda Tripeltt MD Admit Provider Active St art: October [...] rt: October 29, 2024 Vidhya Byrd NP, FABRICATING MACHINE OPERATOR-C Other Provider Active Start: October 29, 2024 Oriana Correia , ISI-C Other Provider Active St art: October 29, [...] t: October 29, 2024 Dr. Goran Bowens , Other Provider Active Start : October 29, [...] rt: October 29, 2024 Vidhya Byrd NP, FABRICATING MACHINE OPERATOR-C Other Provider Active Start: October 29, 2024 Oriana Correia NP-C Other Provider Active St art: October 29, 2024 Dr. Khai Bose MD Other Provider Active Sta rt: October 29, 2024 Kylee FLOYD PAKeithC Attending Provider Active Start: October 29, 2024 Team Status: Active Member Role/Relationship Status Dates Dr. Dipak Aguilar , Primary Care Provider Active Start: October 30, [...] Sta rt: October 30, 2024 Vidhya Byrd FABRICATING MACHINE OPERATOR, FABRICATING MACHINE OPERATOR-C Other Provider Active Start: October 30, 2024 Oriana Correia , ISI-C Other Provider Active St art: October 30, [...] rt: October 30, 2024 Vidhya Byrd NP, FABRICATING MACHINE OPERATOR-C Other Provider Active Start: October 30, 2024 [...] St art: October 30, 2024 Dr. Jose Fernstrom , DO Other Provider Active Start: October 30, 2024 Dr. Herb Kim MD Other Provider Active Start: October 30, 2024 Dr. Jacky Blackwood MD Other Provider Active Star t: October 30, 2024 Dr. Nancy Wang MD Other Provider Active Start: October 30, 2024 Dr. Elaine Duenas MD Other Provider Active Sta rt: October 30, 2024 Vidhya Byrd NP, FABRICATING MACHINE OPERATOR-C Other Provider Active Start: October 30, 2024 [...] rt: October 30, 2024 Vidhya Byrd NP, FABRICATING MACHINE OPERATOR-C Other Provider Active Start: October 30, 2024 [...] rt: October 31, 2024 Vidhya Byrd NP, FABRICATING MACHINE OPERATOR-C Other Provider Active Start: October 31, 2024 [...] Active Star t: October 31, 2024 Dr. aLlo Alcaraz DO Other Provider Active St art: [...] rt: October 31, 2024 Vidhya Byrd NP, FABRICATING MACHINE OPERATOR-C Other Provider Active Start: October 31, 2024 [...] Other Provider Active Start: October 31, 2024 MARIEL Sandoval-C Attending Provider Active Start: October 31, 2024 [...] rt: October 31, 2024 Vidhya Byrd NP, FABRICATING MACHINE OPERATOR-C Other Provider Active Start: October 31, 2024 [...] rt: October 31, 2024 Vidhya Byrd NP, FABRICATING MACHINE OPERATOR-C Other Provider Active Start: October 31, 2024 [...] Status: Active Member Role/Relationship Status Dates Dr. iDpak Aguilar [...] Start : November 01, 2024 Dr. 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 10/20/2022 Reason Comments [...] Productive cough Procedures LUNG VOLUMES Elisa Garcia, MEDICAL RECORDS DIRECTOR.[employer] [address] [place] [address] [address] Referral ID Status Reason Start Date Expiration Date V isits Requested Visits Authorized [id number] Closed Auto-Generate d Referral 11/29/2023 12/28/2024 1 1 Specialty Diagnoses / Procedures Referred By Contac t Referred To Contact [facility] Diagnoses Wheezing Asthma-COPD overlap syndrome (HCC) SOB (shortness of breath) on exertion Decreased activity tolerance Productive cough Procedures SPIROMETRY - BASELINE AND POST DILATOR BRNCDILAT RSPSE SPMTRY PRE&POST-BRNCDILAT ADMN Elisa Garcia, MEDICAL RECORDS DIRECTOR.[employer] [address] [place] [address] [address] Referral ID Status Reason Start Date Expiration Date V isits Requested Visits Authorized [id number] Closed Auto-Generate d Referral 11/29/2023 12/28/2024 [address] Specialty Diagnoses / Procedures Referred By Contac t Referred To Contact CT IMAGING Diagnoses Wheezing Asthma-COPD overlap syndrome (HCC) SOB (shortness of breath) on exertion Decreased activity tolerance Productive cough Procedures CT CHEST WO IVCON DIAGNOSTIC COMPUTED TOMOGRAPHY THORAX W/O CNTRST JoseElisa, MEDICAL RECORDS DIRECTOR.[employer] [address] [place] [address] [place] [address] Referral ID Status Reason Start Date Expiration Date V isits Requested Visits Authorized [id number] Closed Auto-Generate d Referral 11/29/2023 12/28/2024 1 1 Reason Comments Radiology NM Specialty Diagnoses / Procedures Referred By Contac t Referred To Contact [facility] Diagnoses Shortness of breath Procedures NM CARDIAC PERF STRESS/EXERCISE MYOCARDIAL SPECT MULTIPLE STUDIES Analisa Nicole MD [address] [place] [address] Molecular & Functional Imaging [address] [place] [address] Referral ID Status Reason Start Date Expiration Date V isits Requested Visits Authorized [id number] Closed Auto-Generate d Referral 09/26/2023 10/11/2024 1 [...] NEW HIGH MDM 60 MINUTES Radha Berman, NEHA.[employer] [address] [place] [address] Phone: tel: fax: Referral ID Status Reason Start Date Expiration Date V isits Requested Visits Authorized [id number] Closed PCP Requested Referral 05/16/2024 05/16/2025 1 [...] BE BASED ON THE PRIMARY CLINICAL RECORDS. [employer] [facility]. provides no warranty or guarantee of the accuracy or completeness of information in this document.
[2024-11-10 18:55] LABS: Anion Gap 12 (5-15); BUN 12 mg/dL (4-19); BUN/Creat Ratio 9.5 RATIO (10-20); Calcium,Total 9.9 mg/dL (7.6-11.0); Carbon Dioxide 25.9 mmol/L (21.0-32.0); Chloride 103 mmol/L (98-108); Estimated Creatinine Clearance 47.77 ml/min (50-250); Glucose 104 mg/dL (70-99); Potassium 4.3 mmol/L (3.3-5.1)
--- NOTE | 2024-11-10 19:08 | EKG12_ITS ---
Test Reason : AFIB Blood Pressure : */* mmHG Vent. Rate : 118 BPM Atrial Rate : * BPM P-R Int : * ms QRS Dur : 140 ms QT Int : 390 ms P-R-T Axes : * 108 -59 degrees QTcB Int : 546 ms Atrial fibrillation with rapid ventricular response Right bundle branch block T wave abnormality, consider inferior ischemia Abnormal ECG Confirmed by KALE GALDAMEZ, SVETA ([id number]), editorial writer MIGUEL STRAUSS ([id number]) on 11/12/2024 8:29:33 AM Referred By: TREY Confirmed By: SVETA HENLEY MD
--- NOTE | 2024-11-10 19:32 | ED.RN ---
post procedure completed in spite of pt score of a 6. Pt has dyspnea baseline as well as drowsiness and need for O2. Confirmed with charge that he is at or near baseline.
--- NOTE | 2024-11-10 19:35 | EX.ED.DYSGE1 ---
HPI History of Present Illness Chief Complaint: Palpitations Detail of Chief Complaint: Palpitations, presents from TCU Informant: patient and spouse/S.O. Limited: other Onset/Context/Timing Onset: Today Context: Sudden Onset Timing: Continuous Quality: Palpitations Location: Cardiovascular Current Severity: Moderate Maximum Severity: Moderate Worsened by: Nothing Relieved by: Nothing Associated Symptoms Associated Symptoms: Slight shortness of breath. Patient on anticoagulant, Eliquis Narrative Narrative: Patient presents from TCU. Patient is not a good informant. I was informed that he went into atrial flutter. He had an EKG performed at the TCU unit. He denies headache. No double vision blurred vision loss of vision. No trouble with speech or swallowing. He has had shortness of breath since his admission for cholecystitis. He had postop complications with pneumonia. He has been in the hospital for approximately 2+ weeks. He does complain of shortness of breath denies chest pain, pressure tightness heaviness. [place] pain with breathing. He denies abdominal pain. Denies nausea, vomiting or diarrhea. Denies constipation. [place] urologic symptoms. Prior similar symptoms: Yes Recent Illness/Hospitalization: Yes [facility] Medical History Type 2 diabetes mellitus Hyperlipidemia HTN (hypertension) Pulmonary hypertension Diverticulosis Insomnia Atrial fibrillation with RVR Histoplasmosis GERD (gastroesophageal reflux disease) History of skin cancer Solar keratosis Ulcer of right leg Burn scar Home Medications ?Medication ?Instructions ?Recorded ?Last Taken ?Type omeprazole 40 mg capsule,delayed 20 mg PO DAILY reflux 07/22/15 09/05/19 06:00 History release albuterol sulfate 90 mcg/actuation 1 puff PO Q6H shortness of breath 09/05/19 09/05/19 12:00 History breath activated powder inhaler multivitamin 1 tab PO QWEEK 09/25/19 Unknown History apixaban 5 mg tablet 5 mg PO BID blood thinner #180 tabs 09/26/19 Unknown Rx cholecalciferol (vitamin D3) 50 50 mcg PO DAILY 09/26/19 Unknown History mcg (2,000 unit) tablet tadalafil 5 mg tablet 5 mg PO DAILY 09/26/19 Unknown History Lactobacillus acidophilus 10 10,000 mmu cells PO DAILY 09/30/23 09/30/23 History billion cell capsule (Probiotic) supplement calcium 600 mg (as 1 tab PO DAILY supplement 09/30/23 09/30/23 History carbonate)-vitamin D3 10 mcg (400 unit) tablet fluticasone fur. 200 mcg-umeclid 1 ea inhalation DAILY breathing 09/30/23 09/30/23 History 62.5 mcg-vilant 25 mcg inhalat.powder (Trelegy Ellipta) multivitamin (Daily Multi-Vitamin 1 tab PO DAILY supplement 09/30/23 09/30/23 History tablet) omeprazole 20 mg capsule,delayed 20 mg PO DAILY acid reflux 09/30/23 09/30/23 History release hydralazine 25 mg tablet 25 mg PO BID PRN blood pressure 10/26/24 Unknown History ipratropium 0.5 mg-albuterol 3 mg 3 ml inhalation TID lung 10/26/24 Unknown History (2.5 mg base)/3 mL nebulization soln magnesium 200 mg tablet 200 mg PO DAILY magnesium 10/26/24 Unknown History metformin 500 mg tablet 500 mg PO BID diabetes 10/26/24 Unknown History rosuvastatin 20 mg tablet 20 mg PO DAILY 10/26/24 Unknown History amiodarone 200 mg tablet 200 mg PO TID atrial 11/04/24 Unknown Rx fibrillation/heart #0 tabs melatonin 10 mg disintegrating 10 mg PO QHS sleep #0 tabs 11/04/24 Unknown Rx tablet risperidone 0.5 mg tablet 0.5 mg PO QHS sleep #0 tabs 11/04/24 Unknown Rx acetaminophen 325 mg tablet 650 mg (2 x 325 mg) PO Q4H PRN PRN 11/06/24 Unknown Rx Fever, pain 1-11/30 #0 tabs budesonide 0.5 mg/2 mL suspension 0.5 mg (2 mL) inhalation BID.RT 11/06/24 Unknown Rx for nebulization lungs #0 mL cefdinir 300 mg capsule 300 mg PO BID antibiotic #6 caps 11/06/24 Unknown Rx food supplemt, lactose-reduced 120 ml PO TID nutrition 11/06/24 Unknown History 0.08 gram-1.5 kcal/mL oral liquid (Ensure Plus High Protein) food supplemt, lactose-reduced 120 ml PO TIDCM #0 mL 11/06/24 Unknown Rx 0.08 gram-1.5 kcal/mL oral liquid (Ensure Plus High Protein) furosemide 20 mg tablet 40 mg (2 x 20 mg) PO DAILY PRN 11/06/24 Unknown Rx swelling #30 tabs guaifenesin 600 mg tablet, 1,200 mg (2 x 600 mg) PO BID cough 11/06/24 Unknown Rx extended release 12 hr (Mucinex) #14 tabs ipratropium bromide 0.02 % 0.5 mg (2.5 mL) inhalation 11/06/24 Unknown Rx solution for inhalation Q6HWA.RT lungs #0 mL metronidazole 500 mg tablet 500 mg PO TID bowels 3 days #9 tabs 11/06/24 Unknown Rx risperidone 0.5 mg tablet 0.5 mg PO QHS sleep 11/06/24 Unknown History sennosides 8.6 mg-docusate sodium 2 tab PO BID stool softener #0 tabs 11/06/24 Unknown Rx 50 mg tablet (Stimulant Laxative Plus) sodium chloride 0.65 % nasal spray 2 spray NASAL BID PRN PRN NASAL 11/06/24 Unknown Rx aerosol (Deep Sea Nasal) DRYNESS #0 mL sodium chloride 0.65 % nasal spray 2 spray intranasal BID PRN nasal 11/06/24 Unknown History aerosol (Deep Sea Nasal) congestion Allergy/AdvReac Type Severity Reaction Status Date / Time No Known Allergies Allergy Verified 10/26/24 16:44 Family History Mother Breast cancer Father Colon cancer Melanoma Brother COPD (chronic obstructive pulmonary disease) Grandfather Multiple myeloma Surgical History History of left hip replacement History of arthroscopic knee surgery History of skin graft History of transurethral resection of prostate History of right hip replacement History of rotator cuff surgery History of tonsillectomy and adenoidectomy Social History household members: spouse Smoking Status: Former smoker how long ago did patient quit smokin years ago alcohol intake: current alcohol intake frequency: a few times a week Alcohol type: wine substance use type: does not use caffeine: No ROS ROS ED Constitutional Constitutional ED: Denies chills, fever(s), subjective or sweats Eyes Eyes: Denies blurry vision or change in vision ENT ENT ED: Denies rhinorrhea or sore throat Cardiovascular Cardiovascular: Reports orthopnea, palpitations and racing heartbeat; Denies chest pain or paroxysmal nocturnal dyspnea Respiratory/Chest Respiratory/Chest: Reports dyspnea and orthopnea; Denies cough or paroxysmal nocturnal dyspnea Gastrointestinal Gastrointestinal: Denies abdominal pain, diarrhea, melena, nausea or vomiting Genitourinary Genitourinary ED: Denies dysuria, hematuria or urinary frequency Musculoskeletal Musculoskeletal: Denies arthralgias or myalgias Integumentary Denies rash Neurologic Neurologic: Reports weakness; Denies paresthesias Psychiatric Psychiatric: Denies anxiety or depression Endocrine Endocrinology: Denies cold intolerance or heat intolerance Hematologic/Lymphatic Hematologic/Lymphatic: Reports easy bruising EXAM Physical Exam Const Vital Signs: 11/10/24 17:53 11/10/24 18:01 11/10/24 18:09 Temperature 97.7 F L Temperature Source Oral Pulse Rate 137 H Respiratory Rate 20 H Respiratory Effort Short of Breath Blood Pressure 153/79 H Blood Pressure Mean 103 Baseline BP Pulse Ox Oxygen Delivery Method Nasal Cannula Oxygen Flow Rate (L/min) 2 EtCo2 - Document during CPR and with ROSC 12 11/10/24 18:09 11/10/24 18:51 11/10/24 18:59 Temperature 99.4 F H Temperature Source Pulse Rate 98 134 H 94 Respiratory Rate 31 H 15 29 H Respiratory Effort Blood Pressure 198/189 H 182/127 H 109/53 L Blood Pressure Mean Baseline BP 182/127 Pulse Ox 94 95 95 Oxygen Delivery Method Room Air Nasal Cannula Nasal Cannula Oxygen Flow Rate (L/min) 5 5 5 EtCo2 - Document during CPR and with ROSC 9 8 8 11/10/24 19:00 11/10/24 19:04 11/10/24 19:09 Temperature 99.7 F H Temperature Source Oral Pulse Rate 87 84 89 Respiratory Rate 33 H 23 H 32 H Respiratory Effort Blood Pressure 116/61 101/65 116/61 Blood Pressure Mean 79 Baseline BP Pulse Ox 95 95 96 Oxygen Delivery Method Venturi Mask Nasal Cannula Nasal Cannula Oxygen Flow Rate (L/min) 6 5 5 EtCo2 - Document during CPR and with ROSC 8 10 11/10/24 19:14 11/10/24 19:17 11/10/24 19:26 Temperature Temperature Source Pulse Rate 84 86 84 Respiratory Rate 31 H 26 H 31 H Respiratory Effort Blood Pressure 111/58 L 111/65 120/58 L Blood Pressure Mean Baseline BP Pulse Ox 94 96 95 Oxygen Delivery Method Venturi Mask Venturi Mask Venturi Mask Oxygen Flow Rate (L/min) 6 6 EtCo2 - Document during CPR and with ROSC 12 10 13 Vital signs noted. Most recent vital signs are normal. Positive well nourished and well developed Constitutional Narrative: He is slightly somnolent. According to this is not abnormal since his admission to the TCU. General Appearance ED: well developed and NAD; Negative for pallor HEENT Reports dry mucous membranes HEENT Narrative: Head is atraumatic and normocephalic. Ears normal. Nares patent Mouth ED: Yes dry mucous membranes Mouth: dry mucous membranes Eyes PERRL and EOMs intact bilaterally General Eye ED: Negative for pale conjunctiva or scleral icterus Neck no lymphadenopathy, supple and no JVD Chest Wall inspection of chest normal and palpation of chest normal Resp normal respiratory effort and clear to auscultation bilaterally Cardio S1 normal heart sound, S2 normal heart sound and no murmurs Rate: tachycardic Rhythm: abnormal rhythm irregularly irregular GI normal to inspection, nondistended, normoactive bowel sounds, non-tender, non-distended and no masses; Negative for hepatosplenomegaly Back/Spine no CVA tenderness Extremity normal to inspection General Extremety ED: Yes edema; Negative for tenderness General Extremity: edema Neuro CN's II-XII intact bilaterally and no sensory deficits noted Neuro Narrative: Awake but not alert Sensorium / Orientation: Negative for alert Psych Psych Narrative: Flat awake but not alert. Flat affect Skin no rashes or lesions noted and no wounds General Skin Exam: Negative for jaundice or pallor MDM MDM MDM Narrative Medical decision making narrative: Received call regarding patient. Since he is on anticoagulant plan was to cardiovert. Case was discussed with Dr. Currie. History & Record Review Discussion w/independent historian: Family Additional record(s) reviewed:: Prior inpatient record (Hospitalization for cholecystectomy. Since he was not stable he did not undergo surgery. Tube placed. He developed pneumonia. He had a prolonged hospital stay. He is presently residing in the transitional care unit.) Lab Data Attestation: I reviewed the patient's lab results. Lab results narrative: White count is elevated 16.7 thousand. Patient had a elevated white count for some time. Electrolyte panel was elevated creatinine. He has had renal insufficiency based on prior labs. Labs: Laboratory Results - last 24 hr 11/10/24 18:25 WBC 16.7 H RBC 4.90 Hgb 14.5 Hct 44.0 MCV 89.8 MCH 29.6 MCHC 33.0 RDW Std Deviation 52.0 H RDW Coeff of [place] 16.4 H Plt Count 403 MPV 10.0 Immature Gran % (Auto) 1.400 H Neut % (Auto) 85.6 H Lymph % (Auto) 5.3 L [place] % (Auto) 5.6 Eos % (Auto) 1.4 Baso % (Auto) 0.7 Absolute Neuts (auto) 14.3 H Absolute Lymphs (auto) 0.89 Nucleated RBC % 0 Sodium 141 Potassium 4.3 Chloride 103 Carbon Dioxide 25.9 Anion Gap 12 BUN 12 Creatinine 1.29 H Estim Creat Clear Calc 47.77 L Est GFR (MDRD) Non-Af 53 L BUN/Creatinine Ratio 9.5 L Glucose 104 H Calcium 9.9 Rhythm Strip Rhythm Strip: Atrial flutter 2-1 block with a rate of 145. Ectopy: None EKG Initial EKG: Attestation: I personally reviewed and interpreted this EKG as follows: Interpretation: Atrial Fibrillation (Atrial fibrillation with rapid ventricular response. He is right bundle branch block. QRS durations prolonged at 140 ms. QT duration 290 ms. His QTc be is prolonged at 546 ms. Pauline is to the right. There is no acute ischemic changes. He has repolarization changes due to the right bundle branc) Management Discussion w/another healthcare provider: Brick Machine Operator (Dr. Ochoa called prior to his arrival.) Treatment and Re-Evaluation :: Since patient anticoagulated and a flutter/A-fib and anticoagulated will cardiovert. Patient was consented for procedural sedation using propofol. And he was successfully cardioverted using 200 J. Procedures Procedural Sedation 1 (Initial Baseline): Consent Signed: Yes Any Problems With Anesthesia: No You/Your family experience fever (hyperthermia) w/anesthesia: Unknown Sedation medication: Propofol Dose: 50 Total Moderate Sedation Units: 3 Maliampati Score: Class II ASA Classification: E and IV Critical Care Time Critical Care Time: Yes Critical care time (excluding procedures): 30-74 minutes (17), Including time spent: (History, physical, documentation, review of in hospital records and H&P by Dr. Daniels.), Discussing w/Patient &/or Family/Payment Processor, Discussing w/Consultants, Arranging Admission or Transfer and Performing Direct Patient Care at Bedside (Cardioversion) Discharge Plan Triage Chief Complaint: Palpitations ED Provider: Sukhdev Mark Dx/Rx/DC Orders Clinical Impression: Atrial fibrillation and flutter, Pulmonary hypertension, Acute on chronic respiratory failure with hypoxia and hypercapnia, Anticoagulant long-term use, Type 2 diabetes mellitus with hyperglycemia, Essential hypertension Instructions: ED AFIB Prescriptions: No Action cholecalciferol (vitamin D3) 50 mcg (2,000 unit) tablet 50 mcg PO DAILY tadalafil 5 mg tablet 5 mg PO DAILY apixaban 5 mg tablet 5 mg PO BID Qty: 180 3RF multivitamin Tablet 1 tab PO QWEEK omeprazole 40 MG capsule 20 mg PO DAILY albuterol sulfate 90 mcg/actuation aerosol powdr breath activated 1 puff PO Q6H Patient Comments: INHALE 1 PUFF BY MOUTH 4 TIMES DAILY NEEDED risperidone 0.5 mg tablet 0.5 mg PO QHS Ensure Plus High Protein 0.08 gram-1.5 kcal/mL liquid 120 ml PO TID Deep Sea Nasal 0.65 % aerosol,spray 2 spray intranasal BID PRN (Reason: nasal congestion) omeprazole 20 mg capsule,delayed release(DR/EC) 20 mg PO DAILY Trelegy Ellipta 200-62.5-25 mcg blister with device 1 ea inhalation DAILY calcium carbonate-vitamin D3 600 mg-10 mcg (400 unit) tablet 1 tab PO DAILY Probiotic 10 billion cell capsule 10,000 mmu cells PO DAILY multivitamin [Daily Multi-Vitamin] Tablet 1 tab PO DAILY rosuvastatin 20 mg tablet 20 mg PO DAILY metformin 500 mg tablet 500 mg PO BID hydralazine 25 mg tablet 25 mg PO BID PRN ipratropium-albuterol 0.5 mg-3 mg(2.5 mg base)/3 mL solution for nebulization 3 ml inhalation TID magnesium 200 mg tablet 200 mg PO DAILY amiodarone 200 mg Tablet 200 mg PO TID Qty: 0 0RF Rx Instructions: 200 mg 3 times daily until 11/07/2024 then decrease to 200 mg twice daily until 11/14/2024 then decrease to 200 mg daily and continue that indefinitely risperidone 0.5 mg Tablet 0.5 mg PO QHS Qty: 0 0RF melatonin 10 mg Tablet,Disintegrating 10 mg PO QHS Qty: 0 0RF acetaminophen 325 mg Tablet 650 mg PO Q4H PRN PRN (Reason: Fever, pain 1-11/30) Qty: 0 0RF sennosides-docusate sodium [Stimulant Laxative Plus] 8.6-50 mg Tablet 2 tab PO BID Qty: 0 0RF budesonide 0.5 mg/2 mL Suspension For Nebulization 0.5 mg inhalation BID.RT Qty: 0 0RF ipratropium bromide 0.02 % Solution 0.5 mg inhalation Q6HWA.RT Qty: 0 0RF Deep Sea Nasal 0.65 % Aerosol,[place] 2 spray NASAL BID PRN PRN (Reason: NASAL DRYNESS) Qty: 0 0RF Ensure Plus High Protein 0.08 gram-1.5 kcal/mL Liquid 120 ml PO TIDCM Qty: 0 0RF cefdinir 300 mg capsule 300 mg PO BID Qty: 6 0RF metronidazole 500 mg tablet 500 mg PO TID 3 Days Qty: 9 0RF guaifenesin [Mucinex] 600 mg tablet extended release 12hr 1,200 mg PO BID Qty: 14 0RF furosemide 20 mg tablet 40 mg PO DAILY PRN (Reason: swelling) Qty: 30 0RF Patient Comments: take as needed for swelling , or weight gain of 3 pounds in one day Primary Care Provider: Dipak Aguilar Referrals: Dipak Aguilar DO [Primary Care Provider, Medical] Print Language: Barbadian Disposition Disposition: Inpatient Rehab Unit/Facility Discharge Location: [facility] Transitional Care Unit
== END 2024-11-10 20:56 ==
PROVIDERS: Emergency Provider Emergency Medicine; PCP Student in an Organized Health Care Education/Training Program; Visit Provider Emergency Medicine
DX: I48.91 Unspecified atrial fibrillation (principal); J96.22 Acute and chronic respiratory failure with hypercapnia; J96.21 Acute and chronic respiratory failure with hypoxia; I27.20 Pulmonary hypertension, unspecified; I48.92 Unspecified atrial flutter; E11.65 Type 2 diabetes mellitus with hyperglycemia; Z87.891 Personal history of nicotine dependence; Z79.01 Long term (current) use of anticoagulants; E78.5 Hyperlipidemia, unspecified; I10 Essential (primary) hypertension; K21.9 Gastro-esophageal reflux disease without esophagitis
CPT/HCPCS: 80048; 85025; 93005; 96374; 99285; A4216

== ENCOUNTER 2024-12-16 11:42 | Emergency (ER) | payer MEDICARE, SELFPAY ==
[2024-12-16 11:42] VITALS: BP 152/98; PULSE 109; RESP 20; TEMP 36.6; O2SAT 98; BMI 26.5
--- NOTE | 2024-12-16 12:25 | RAD_ITS ---
PROCEDURE: CHEST PA AND LATERAL 12/16/2024 REASON FOR EXAM: RALES, LYMPHEDEMA BILATERALLY TECHNIQUE: Procedure Code: RADCXR Modality: DX Procedure: CHEST PA AND LATERAL COMPARISON: October 2024. FINDINGS: Hardware and support lines: Pigtail catheter right upper quadrant. Heart: Negative. Lungs: Improved aeration of the lungs. Emphysematous changes. Negative for infiltrates, or pulmonary edema. Pleura: No pleural thickening. No pleural effusion. Mediastinum and aorta: Negative for hilar adenopathy. Mildly tortuous thoracic aorta. Bones: Age-appropriate degenerative changes of the spine. Other: Remainder of the exam negative. RAD/Chest PA and Lateral IMPRESSION: Negative for acute cardiopulmonary disease. Pigtail catheter right upper quadrant with mildly elevated right hemidiaphragm. Reading Location: [id number]
[2024-12-16 12:29] LABS: Hematocrit 32.8 % (40-54); Hemoglobin 10.8 g/dL (13.0-16.5); Immature Granulocytes Count 0.130 X10^3/uL (0.0-0.0); Mean Corp Hgb Conc 32.9 g/dL (32-36); Mean Corpuscular Volume 89.4 fL (80-94); Mean Platelet Vol. 9.3 fl (6.2-12.0); NRBC Flagged by Analyzer 0 % (0-5); Platelet Count 289 K/mm3 (150-450); RBC Distribution Width CV 15.4 % (11.6-14.6); RBC Distribution Width SD 49.7 fl (35.1-43.9); Red Blood Count 3.67 M/mm3 (4.6-6.2); White Blood Count 10.3 K/mm3 (4.4-11.0)
--- OUTSIDE RECORDS SUMMARY | 2024-12-16 12:32 | XMS RPT_ITS | CCD ---
Author Organization [facility] Care Team Providers Care Heat Pump Installer Name Role Phone AJ ISSA Unavailable Unavailable DIPAK AGUILAR Unavailable Unavailable DIPAK AGUILAR Unavailable Unavailable Dipak Aguilar DO Primary Care Provider Dipak Aguilar DO Primary Care Provider Dipak Aguilar DO Primary Care Provider Dipak Aguilar DO Primary Care Provider Dipak Aguilar DO Primary Care Provider DIPAK AGUILAR Primary Care Unavailable JEFFREY HDZ Referring Unavail able Emerald RN, Ananya Unavailable AJ ISSA Attending Unavailabl e DIPAK AGUILAR Primary Care Unavailable Cullen REACHER.AUDIO VISUAL EQUIPMENT RENTAL CLERK, Radha Marte Unavailable [facility] REACHER.Elisa JEAN-BAPTISTE Unavailable Alon REACHER.Ruma JEAN-BAPTISTE Unavailable Dr. Dipak Aguilar DO Primary Care Provider [phone] Dr. Sukhdev Mark MD Emergency Provider Dr. [...] M GALDAMEZ, Dr. Gerard Salazar Other Provider [phone] Ben GALDAMEZ, Dr. Talavera Attending Provider Unavaila ble Tyler BLACKMON, Dr. Cormier Other Provider Alberta GALDAMEZ, Dr. Lozano Other Provider Sherie GALDAMEZ, Dr. Berkowitz Other Provider Etelvina GALDAMEZ, Dr. Bess Other Provider Kwan BLACKMON, Dr. Zimmer Other Provider Melody GALDAMEZ, Dr. Ilan Yoon Other Provider [phone] Earnestine GALDAMEZ, Dr. Loyd Other Provider Jarrod GALDAMEZ, Dr. Terry Other Provider Bridgette GALDAMEZ, Dr. Whitman Other Provider [phone] Nida GALDAMEZ, Dr. Page Other Provider Daron GALDAMEZ, Dr. Anaya Other Provider Luis GALDAMEZ, Dr. Hou Other Provider [phone] Rubina GALDAMEZ, Dr. Loco Other Provider Keny GALDAMEZ, Dr. Ivy Other Provider Maureen Tariq MD, Dr. Brown Other Provider Sagrario GALDAMEZ, Dr. Lee Other Provider [phone] Jossue GALDAMEZ, Dr. Paz Other Provider Nick GALDAMEZ, Dr. Rosenbaum Other Provider Lissa BLACKMON, Dr. May Other Provider Elizabeth GALDAMEZ, Dr. Moore Other Provider [phone] Morelia Dietrich MD, Dr. Lane Other Provider Elyssa BLACKMON, Dr. Garcia Other Provider Judy GALDAMEZ, Dr. Estevez Other Provider Maxi Blackwood MD, Dr. Rico Other Provider Felipe GALDAMEZ, Dr. Cruz Other Provider [phone] Henrique GALDAMEZ, Dr. Berry Other Provider Rochelle PRESS OPERATOR [employer], Vidhya Other Provider Masood [employer]ATOR [employer], Oriana Bedolla Other Provider Juice GALDAMEZ, Dr. Ridley Attending Provider Monica GALDAMEZ, Dr. Rogers Attending Provider Dirk GALDAMEZ, Dr. Kenn Moreland Attending Provider Kylee Rodriguez PA-C Attending Provider Dr. Goran Bowens DO Attending Provider Bull [employer]PER[employer]-CAiram Attending Provide r Bull SNOWDEN-CAiram Other Provider Jena GALDAMEZ, Dr. Everett Attending Provider Dr. Genia Scott DO Attending Provider Ben GALDAMEZ, Dr. Talavera Other Provider Unavailable Dr. Dipak Aguilar DO Primary Care Physician Jsa GALDAMEZ, Dr. Santizo Attending Physician Jas GALDAMEZ, Dr. Santizo Emergency Department Physician Krishna GALDAMEZ, Dr. Quick Attending Physician Krishna GALDAMEZ, Dr. Quick Emergency Department Phys ician Bella GALDAMEZ, Akira Emergency Department Physician Uziel GALDAMEZ, Dr. Fernanda Sow Admitting Physician Uziel GALDAMEZ, Dr. Fernanda Sow Nurse Practitioner Juice GALDAMEZ, Dr. Ridley Nurse Practitioner Jena GALDAMEZ, Dr. Everett Nurse Practitioner Dirk GALDAMEZ, Dr. Kenn Moreland Nurse Practitioner Eleni GALDAMEZ, Dr. Wild Nurse Practitioner Luis M GALDAMEZ, Dr. Gerard Salazar Nurse Practitioner Ben GALDAMEZ, Dr. Talavera Attending Physician Unavail able Tyler BLACKMON, Dr. Cormier Nurse Practitioner [phone] Alberta GALDAMEZ, Dr. Lozano Nurse Practitioner Sherie GALDAMEZ, Dr. Berkowitz Nurse Practitioner [phone] Etelvina GALDAMEZ, Dr. Bess Nurse Practitioner Kwan BLACKMON, Dr. Zimmer Nurse Practitioner Melody GALDAMEZ, Dr. Ilan Yoon Nurse Practitioner Earnestine GALDAMEZ, Dr. Loyd Nurse Practitioner Jarrod GALDAMEZ, Dr. Terry Nurse Practitioner [phone] Bridgette GALDAMEZ, Dr. Whitman Nurse Practitioner Nida GALDAMEZ, Dr. Page Nurse Practitioner Daron GALDAMEZ, Dr. Anaya Nurse Practitioner [phone] Luis GALDAMEZ, Dr. Hou Nurse Practitioner Rubina GALDAMEZ, Dr. Loco Nurse Practitioner Keny GALDAMEZ, Dr. Ivy Nurse Practitioner Unavail stanley Tariq MD, Dr. Brown Nurse Practitioner Sagrario GALDAMEZ, Dr. Lee Nurse Practitioner Jossue GALDAMEZ, Dr. Paz Nurse Practitioner Nick GALDAEMZ, Dr. Rosenbaum Nurse Practitioner Lissa BLACKMON, Dr. May Nurse Practitioner Elizabeth GALDAMEZ, Dr. Moore Nurse Practitioner Karlo GALDAMEZ, Dr. Lane Nurse Practitioner Elyssa BLACKMON, Dr. Garcia Nurse Practitioner [phone] Judy GALDAMEZ, Dr. Estevez Nurse Practitioner Yuni tera Blackwood MD, Dr. Rico Nurse Practitioner [phone] Felipe GALDAMEZ, Dr. Cruz Nurse Practitioner Henrique GALDAMEZ, Dr. Berry Nurse Practitioner Rochelle PRESS OPERATOR [employer], Vidhya Nurse Practitioner Masood [employer] OPERATOR [employer], Oriana Bedolla Nurse Practitioner Juice GALDAMEZ, Dr. Ridley Attending Physician Monica GALDAMEZ, Dr. Rogers Attending Physician Dirk GALDAMEZ, Dr. Kenn Moreland Attending Physician [phone] Ben GALDAMEZ, Dr. Talavera Referring Provider [facility] eliot Bella MD, Dr. Everett Attending Physician Juice GALDAMEZ, Dr. Ridley Referring Provider Kylee Rodriguez PA-C Attending Physician Dr. Goran Bowens DO Attending Physician Bull [employer], Airam Attending Physici an Bull [employer], Airam Nurse Practitione r Dr. Genia Scott DO Attending Physician Madhu GALDAMEZ, Dr. Ryder Moreland Attending Physician Tyler BLACKMON, Dr. Cormier Referring Provider Ben GALDAMEZ, Dr. Talavera Nurse Practitioner Unavailblayne Black MD, Dr. Brandon Sena Admitting Physician Wayne GALDAMEZ, Dr. Brandon Sena Attending Physician Wayne GALDAMEZ, Dr. Brandon Sena Referring Provider [phone] Jeff BLACKMON, Dr. Quesada Referring Provider Gerard Asencio Consulting Unavailable Aguilar, Dipak Primary Care Unavailable Wayne, Brandon Chi Referring Unavailable Wayne, Brandon Chi Admitting Unavailable Wayne Brandon Chi Attending Unavailable Kenn Cavazos Consulting Unavailable Dipak Aguilar Primary Care Unavailable Fernanda Triplett Admitting Unavailable Kenn Cavazos Attending Unavailable Blake Pinzon Consulting Unavailable Woo Rehman Consulting Unavailable Shahriar Pressley Consulting Unavailable Goran Bowens Consulting Unavailable Ilan Oliver Consulting Unavailable Evert Colby Consulting Unavailable Harrison Garya Consulting Unavailable Antonette Angeles Consulting UnavailCamilo Flores [...] NP Consulting Unavailable Oriana Correia Consulting Unavailable Fernanda Triplett Consulting Unavailable Khai Bose Consulting Unavailable Sukhdev Mark Attending Unavailable Dipak Aguilar Primary Care Unavailable Kylee Castellano Attending Unavailable Cece Bella Consulting Unavailable Junito Knowles Consulting Unavailable Gerard Asencio Consulting Unavailable Genia Scott Consulting Unavailable Ilan Contreras Consulting Unavailable Ilan Contreras Attending Unavailable Khai Bose Attending Unavailable Cece Bella Attending Unavailable Airam Gottlieb Consulting Genia Espinosa Attending Unavailable Aguilar, Dipak Primary Care Unavailable Sue Anderson Attending UnavailFernanda Slade Attending Unavailable Ilan Contreras Referring Unavailable Airam Gottlieb Attending Maxi conteh Aguilar, Dipak Primary Care Unavailable Sukhdev Mark Attending Unavailable Aguilar, Dipak Primary Care Unavailable Aguilar, Dipak Referring Unavailable Kenn Cavazos Attending Unavailable Goran Bowens Attending Unavailable Juice, Khai Referring Unavailable Aguilar, Dipak Primary Care Unavailable Abdelrahman Keller Attending Unavailable Aguilar, Dipak Primary Care Unavailable Fernanda Triplett Consulting Unavailable Fernanda Triplett Admitting Unavailable Ilan Contreras Attending Unavailable Juice, Khai Consulting Unavailable Cece Bella Consulting Unavailable Kenn Cavazos Consulting Unavailable Junito Knowles Consulting Unavailable Gerard Asencio Consulting Unavailable Genia Scott Consulting Unavailable AGUILAR, DIPAK Primary Care Unavailable ELISA GARCIA Referring Unavailable ELISA GARCIA Attending Unavailable AGUILAR, DIPAK Primary Care Unavailable ELISA GARCIA Attending Unavailable AGUILAR, DIPAK Primary Care Unavailable ELISA GARCIA Attending Unavailable RUMA CHI Attending Unavailable AGUILAR, DIPAK Primary Care Unavailable ALONRUMA Referring Unavailable AGUILAR, DIPAK Primary Care Unavailable AGUILAR, DIPAK Primary Care Unavailable ANANYA FRAZIER Attending Unavailable AGUILAR, DIPAK Primary Care Unavailable VIKKI ALBRECHT Attending Unavailable AGUILAR, DIPAK Primary Care Unavailable VIKKI ALBRECHT Attending Unavailable RADHA BERMAN Attending Unavailabl e AGUILAR, DIPAK Primary Care Unavailable AGUILAR, DIPAK Primary Care Unavailable AGUILAR, DIPAK Attending Unavailable AGUILAR, DIPAK Primary Care Unavailable AGUILAR, DIPAK Referring Unavailable RADHA BERMAN Referring UnavailELAINE Cohn JR Attending Unavailable AGUILAR, DIPAK Primary Care Unavailable OMAR TREADWELL Attending Unavailable AGUILAR, DIPAK Primary Care Unavailable ELISA GARCIA Referring Unavailable RADHA BERMAN Referring Unavailabl e AGUILAR, DIPAK Primary Care Unavailable AGUILAR, DIPAK Primary Care Unavailable AGUILAR, DIPAK Primary Care Unavailable ELISA GARCIA Attending Unavailable ANALISA NICOLE Attending Unavailable AGUILAR, DIPAK Primary Care Unavailable Allergies Allergy Classification Reported Allergen(s) Allergy Type Date of Onset Reaction(s) Facility (20 sources) mold extract; Translations: [MOLD] Drug Allergy 1 Cough [facility] (20 sources) CYPRESS; Translations: [CYPRESS] Propensity to adverse reactions (disorder) 1 Other: See Comments [facility] (20 sources) CEDAR; Translations: [CEDAR] Propensity to adverse reactions (disorder) 1 Cough [facility] (20 sources) predniSONE; Translations: [PREDNISONE] Drug Allergy 5 Mental Status Change [facility] Medications Current Medications Medication Drug Class(es) Dates Sig (Normalized) Sig (Original) amiodarone hydrochloride 200 mg oral tablet (7 sources) Antiarrhythmic Start: 11-16-2024 Start: 11-16-2024 Start: 11-04-2024 End: 11-16-2024 amoxicillin 875 mg / clavulanate 125 mg oral tablet (1 source) Penicillin-class Antibacterial Start: 07-01-2022 End: 07-08-2022 take 1 tablet by mouth twice daily amoxicillin-clavulanic acid (AUGMENTIN) 875-125 mg per tablet Take 1 tablet by mouth twice daily for 7 days. 20 tablet 0 07/01/2022 07/08/2022 Active Comment on above: Take 1 tablet by mouth twice daily for 7 days. Blood-Glucose Meter monitoring kit (2 sources) Start: 05-31-2024 End: 06-01-2024 Blood-Glucose Meter monitoring kit Indications: New onset type 2 diabetes mellitus (HCC) Glucose Meter of Choice - Kit - Dx: Type 2 DM - Controlled E11.9 1 each 05/31/2024 06/01/2024 Active calcium citrate/vitamin D3 (CALCIUM CITRATE + D [...] once daily. cholecalciferol 0.05 mg oral tablet (8 sources) Vitamin D Start: 09-26-2019 famotidine 20 mg oral tablet (3 sources) Histamine-2 Receptor Antagonist Start: 11-16-2024 Start: 11-16-2024 Athszmhdesd-Vbctdfboo-Rpitrc er (8 sources) Start: 09-30-2023 Start: 09-30-2023 Fluticasone-Um eclidin-Vilanter (Trelegy Ellipta) 200-62.5-25 mcg blister with device Active 1 NMA INHALATION DAILY September 30, 2023 12:00am breathing Start: 09-30-2023 Fluticasone-Um eclidin-Vilanter (Trelegy Ellipta) 200-62.5-25 mcg blister with device Active 1 NMA INHALATION DAILY September 30, 2023 12:00am furosemide 20 mg oral tablet (17 sources) Loop Diuretic Start: 10-26-2024 End: 11-06-2024 Start: 05-16-2024 End: 05-31-2024 furosemide (LASIX) 20 mg tab let Indications: Hospital discharge follow-up , Bilateral leg edema Take 1 tablet by mouth as needed. 30 tablet 05/16/2024 05/31/2024 Discontinued hydrALAZINE hydrochloride 25 mg oral tablet (20 [...] times daily. 04/27/2024 05/30/2024 Discontinued lactobacillus acidophilus 10 [id number] unt oral capsule (8 sources) Start: 09-30-2023 Start: 09-30-2023 take 10 capsules by mouth once daily Lactobacillus Acidophilus (Probiotic) 10 billion cell capsule Active 11167 NMA PO DAILY September 30, 2023 12:00am supplement Magnesium (1 source) Start: 10-26-2024 take 1 tablet by mouth once daily Magnesium 200 mg tablet Active 200 mg PO DAILY October 26, 2024 12:00am melatonin 10 mg sublingual tablet (4 sources) Start: 11-04-2024 metFORMIN hydrochloride 500 mg oral tablet (20 sources) Biguanide Start: 10-26-2024 Start: 05-31-2024 End: [...] with meals. 60 tablet 2 06/28/2024 Active Multivitamin (Daily Multi-Vitamin) tablet (4 sources) Start: [...] ight ear once daily for 7 days. microencapsulated potassium chloride 20 meq extended release oral tablet (3 sources) Start: 11-16-2024 Start: 11-16-2024 rosuvastatin calcium 20 mg o ral tablet [...] Active sodium chloride 0.111 meq/ml nasal spray (7 sources) Start: 11-06-2024 Start: 11-06-2024 tamsulosin hydrochloride 0.4 mg oral capsule (3 sources) alpha-Adrenergic Mattie Start: 11-16-2024 Start: 11-16-2024 TRELEGY ELLIPTA 200-62.5-25 mcg dsdv (20 sources) Start: 08-19-2020 TRELEGY ELLIPT A 200-62.5-25 mcg dsdv Inhale as instructed once daily. 08/19/2020 Active Start: 08-19-2020 TRELEGY ELLIPT A 200-62.5-25 mcg dsdv Inhale as instructed once daily. 0 08/19/2020 Active Start: 08-19-2020 TRELEGY ELLIPT A 200-62.5-25 mcg dsdv Comment on above: Inhale as instructed once daily. Completed/Discontinued Medications Medication Drug Class(es) Dates Sig (Normalized) Sig (Original) acetaminophen 325 mg oral tablet (4 sources) Start: 11-06-2024 End: 11-16-2024 [id number] 200 actuat albuterol 0.09 mg/actuat metered dose [...] / ipratropium bromide 0.167 mg/ml inhalation solution (20 sources) Anticholinergic, beta2-Adrenergic Agonist Start: 10-26-2024 End: 11-16-2024 Start: 10-26-2024 take 1 mL by inhalat [...] oral tablet (20 sources) alpha-Adrenergic Mattie Start: 06-29-2022 End: 09-12-2023 take 1 tablet by mouth once daily alfuzosin SR (UROXATRAL) 10 mg 24 hr tablet Indications: benign prostatic hyperplasia Take 1 tablet by mouth once daily 90 tablet 0 05/18/2023 09/12/2023 Discontinued Comment on above: Take 1 tablet by sindhu th once daily. Take 1 tablet by sindhu th once daily amoxicillin 500 mg oral capsule (20 sources) Penicillin-class Antibacterial Start: 07-12-2022 End: 11-29-2023 amoxicillin (AMOXIL) 500 mg capsule TAKE FOUR CAPSULES BY MOUTH ONE HOUR BEFORE APPOINTMENT 07/12/2022 11/29/2023 Discontinued Start: 10-11-2013 End: 07-22-2015 Comment on above: TAKE FOUR CAPSULES B Y MOUTH ONE HOUR BEFORE APPOINTMENT apixaban 5 mg oral tablet (20 sources) Factor Xa Inhibitor Start: 09-06-2019 End: 11-04-2024 Comment on above: Take 1 tablet by [facility] twice daily. take 1 tablet twice a day atorvastatin 40 mg oral tabl et (20 sources) HMG-CoA Reductase Inhibitor Start: 10-01-2023 End: 10-26-2024 budesonide 0.25 mg/ml inhalation suspension (17 sources) Corticosteroid Start: 11-06-2024 End: 11-16-2024 budesonide (PULM ICORT) 0.25 mg/2 mL nebulizer solution Use 0.25 mg via nebulizer two times a day. Active Budesonide-Formoterol (8 sources) Corticosteroid, beta2-Adrenergic Agonist Start: 2019 End: 10-26-2024 Start: 09-05-2019 End: 10-26-2024 Budesonide-Formoterol 160-4. 5 mcg/actuation HFA aerosol inhaler Discontinued 2 NMA PO TWICE A DAY September 05, 2019 12:00am October 26, 2024 6:13pm breathing Start: 09-05-2019 Budesonide-For moterol 160-4.5 mcg/actuation HFA aerosol inhaler Active 2 NMA PO TWICE A DAY September 05, 2019 12:00am breathing calcium carbonate 1500 mg / cholecalciferol 0.01 mg oral tablet (8 sources) Vitamin D Start: 09-30-2023 End: 11-16-2024 Start: 09-30-2023 Calcium Carbon ate-Vitamin D3 600 mg-10 mcg (400 unit) tablet Active 1 {tbl} PO DAILY September 30, 2023 12:00am supplement cefdinir 300 mg oral capsule (4 sources) Cephalosporin Antibacterial Start: 11-06-2024 End: 11-16-2024 cetirizine hydrochloride 10 mg oral tablet (20 sources) Histamine-1 Receptor Antagonist Start: 07-02-2013 End: 11-17-2022 take 1 tablet by mouth once daily cetirizine (ZYRTEC) 10 mg tablet Take 10 mg by mouth once daily. 0 07/02/2013 11/17/2022 Discontinued Comment on above: Take 10 mg by mouth once daily. docusate sodium 50 mg / sennosides, halfway 8.6 mg oral tablet (4 sources) Start: 11-06-2024 End: 11-16-2024 Fish Oils (4 sources) Start: 09-05-2019 End: 09-25-2019 Fish Oil 1 TAB Discontinued 1 {tbl} PO DAILY September 05, 2019 12:00am September 25, 2019 9:28am supplement Start: 09-05-2019 End: 09-25-2019 Fish Oil 1 TAB Discontinued 1 {tbl} PO DAILY September 05, 2019 12:00am September 25, 2019 9:28am 12 hr guaiFENesin 600 mg extended release oral tablet (4 sources) Start: 11-06-2024 End: 11-16-2024 ipratropium bromide 0.2 mg/ml inhalation solution (4 sources) Anticholinergic Start: 11-06-2024 End: 11-16-2024 lidocaine hydrochloride 0.02 mg/mg topical gel (4 [...] TWICE A DAY [facility]. metroNIDAZOLE 500 mg oral tablet (4 sources) Nitroimidazole Antimicrobial Start: 11-06-2024 End: 11-16-2024 Multivitamin 1 TAB (4 sources) Start: 09-05-2019 [...] oral capsule (1 source) Nitrofuran Antibacterial Start: 10-13-19 End: 10-13-19 take 1 capsule by mouth twice daily nitrofurantoin monohydrate and macrocrystal (MACROBID) 100 mg capsule Take 1 capsule by mouth twice daily for 7 days. FOR 7 DAYS. 14 capsule 0 10/12/2022 10/12/2022 Discontinued (Course of therapy completed) Comment on above: Take 1 capsule by mo [facility] twice daily for 7 days. FOR 7 DAYS. [place]-3 Fatty Acids (Fish Oil Concentrate) 1,000 mg capsule (4 sources) Start: 09-25-19 End: 09-26-19 take 1 capsule by mouth once daily [place]-3 Fatty Acids (Fish Oil Concentrate) 1,000 mg capsule Discontinued 1000 mg PO DAILY September 25, 2019 12:00am September 26, 2019 1:01pm omeprazole 20 mg delayed release oral capsule (20 sources) Proton Pump Inhibitor Start: 11-20-19 End: 05-26-19 Start: 11-19-2022 End: 11-19-2022 take 1 capsule [...] on above: Take 1 capsule by mo [facility] once daily. Take 1 capsule by mo [facility] once daily. 1/2 hr before meal. Take 1 capsule by mo [facility] two times a day as needed. 1/2 hr before meal. risperiDONE 0.5 mg oral tablet (7 sources) Atypical Antipsychotic Start: 11-04-2024 End: 11-16-2024 sildenafil 100 mg oral tablet (10 sources) Phosphodiesterase 5 Inhibitor Start: 11-17-2022 End: 09-12-2023 sildenafil (VIAGRA) 100 mg tablet Indications: ED [...] Comment on above: [facility] 30 to 60 minutes [...] tablet 3 11/16/2021 Active Start: 09-26-2019 End: 11-16-2024 Comment on above: Take 1 tablet by [...] Comment on above: Take 2 capsules by [facility] once daily. (20 sources) Start: End: Start: 11-06-2024 End: 11-16-2024 Start: 11-06-2024 Start: 10-26-2024 Start: 09-30-2023 End: 11-16-2024 Start: 09-30-2023 Start: 09-25-2019 End: 11-16-2024 Start: 09-25-2019 Start: 09-25-2019 End: 09-26-2019 Start: 09-05-2019 End: 09-25-2019 Start: 09-05-2019 End: 09-25-2019 Problems Active Problems Problem Classification Problem Date Documented Da te Episodic/Chronic Acute cerebrovascular disease (11 sources) Cerebrovascular accident; Translations: [Cerebral infarction, unspecified] Onset: 5 05-16-2024 Chronic Administrative/social admission (1 source) Mobility poor; Translations: [Other reduced mobility] 05-16-2024 Episodic Aspiration pneumonitis; food/vomitus (6 sources) Aspiration pneumonia; Translations: [Pneumonitis due to inhalation of food and vomit] 11-18-2024 Episodic Asthma (6 sources) Asthma; Translations: [Unspecified asthma, uncomplicated] 11-06-2024 Chronic Biliary tract disease (15 sources) Acute cholecystitis; Translations: [Acute cholecystitis] Onset: 5 10-26-2024 Episodic Cardiac dysrhythmias (20 sources) Persistent atrial fibrillation; Translations: [Other persistent atrial fibrillation] Onset: 0 Resolved: 3 10-11-2019 Chronic Chronic kidney disease (20 sources) Chronic kidney disease stage 3A ; Translations: [Stage 3a chronic kidney disease] Onset: 2 11-16-2022 Chronic Chronic kidney disease (1 source) Chronic kidney disease; Translations: [Stage 3a chronic kidney disease (HCC)] Onset: 3 Chronic obstructive pulmonary disease and bronchiectasis (20 sources) Asthma-chronic obstructive pulmonary disease overlap syndrome; Translations: [Chronic obstructive pulmonary disease, unspecified] Onset: 9 Resolved: 0 09-12-2019 Chronic Chronic ulcer of skin (8 sources) Ulcer of lower extremity; Translations: [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] 09-24-2019 Chronic Congestive heart failure; nonhypertensive (6 sources) Acute on chronic heart failure co-occurrent with normal ejection fraction; Translations: [Acute on chronic diastolic (congestive) heart failure] 11-18-2024 Chronic Diabetes mellitus with complications (6 sources) Hyperglycemia due to type 2 diabetes mellitus; Translations: [Type 2 diabetes mellitus with hyperglycemia] 11-06-2024 Chronic Diabetes mellitus without complication (13 sources) Type 2 diabetes mellitus; Translations: [Type 2 diabetes mellitus without complications] Onset: 5 05-30-2024 Chronic Disorders of lipid metabolism (20 sources) Dyslipidemia; Translations: [Hyperlipidemia, unspecified] Onset: 2 11-16-2021 Chronic Diverticulosis and diverticulitis (20 sources) Diverticulosis of colon; Translations: [Diverticulosis of large intestine without perforation or abscess without bleeding] 11-07-2006 Chronic E Codes: Fall (8 sources) Falling injury; Translations: [Unspecified fall, initial encounter] 09-11-2024 Episodic Esophageal disorders (20 sources) Gastroesophageal reflux disease; Translations: [Gastro-esophageal reflux disease without esophagitis] Onset: 7 11-07-2006 Chronic Essential hypertension (20 sources) Essential hypertension; Translations: [Essential (primary) hypertension] Onset: 5 05-30-2024 Chronic Fluid and electrolyte disorders (10 sources) Lactic acidosis; Translations: [Lactic acidosis] 10-26-2024 Episodic Genitourinary symptoms and ill-defined conditions (20 sources) Urge incontinence of urine; Translations: [Urge incontinence] Onset: 6 11-07-2006 Chronic Hyperplasia of prostate (20 sources) Benign prostatic hypertrophy with outflow obstruction; Translations: [Benign prostatic hyperplasia with lower urinary tract symptoms] Onset: 8 02-16-2021 Chronic Immunizations and screening for infectious disease (2 sources) Vaccination needed; Translations: [Encounter for immunization] Episodic Malaise and fatigue (8 sources) Fatigue; Translations: [Other fatigue] 11-02-2023 Episodic Miscellaneous mental health disorders (1 source) Confusional state 05-16-2024 Chronic Mycoses (20 sources) Histoplasmosis; Translations: [Histoplasmosis, unspecified] Onset: 0 11-23-2019 Episodic Nausea and vomiting (1 source) Nausea with vomiting, unspecified; Translations: [Nausea with vomiting, unspecified] Onset: 5 Episodic Nutritional deficiencies (20 sources) Vitamin D deficiency; Translations: [Vitamin D deficiency, unspecified] Onset: 2 11-16-2021 Chronic Open wounds of extremities (9 sources) Laceration of right hand; Translations: [Laceration without foreign body of right hand, initial encounter] 09-11-2024 Episodic Open wounds of head; neck; and trunk (9 sources) Laceration of right eyelid; Translations: [Laceration without foreign body of right eyelid and periocular area, initial encounter] Onset: 5 09-11-2024 Episodic Other aftercare (5 sources) Post-discharge follow-up; Translations: [Encounter for follow-up examination after completed treatment for conditions other than malignant neoplasm] 05-16-2024 Episodic Other aftercare (16 sources) Long-term current use of anticoagulant; Translations: [prison (current) use of anticoagulants] 10-04-2023 Episodic Other aftercare (1 source) Encounter for surgical aftercare following surgery on the digestive system; Translations: [Encounter for surgical aftercare following surgery on the digestive system] Onset: 5 Episodic Other aftercare (1 source) prison (current) use of anticoagulants; Translations: [moth exterminator (current) use of anticoagulants] Onset: 5 Episodic Other aftercare (1 source) Encounter for palliative care; Translations: [Encounter for palliative care] Onset: 5 Episodic Other and unspecified benign neoplasm (20 sources) Benign neoplasm of colon; Translations: [Benign neoplasm of colon, unspecified] 11-07-2006 Episodic Other circulatory disease (1 source) H/O: atrial fibrillation; Translations: [Personal history of other diseases of the circulatory system] 09-10-2024 Episodic Other connective tissue disease (7 sources) Foreign body; Translations: [Residual foreign body in soft tissue] 09-11-2024 Episodic Other diseases of bladder and urethra (14 sources) Bladder neck obstruction; 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] Onset: 8 08-14-2009 Chronic Other diseases of bladder and urethra (20 sources) Stricture of bladder neck; 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] Onset: 8 Chronic Other diseases of bladder and urethra (1 source) Bladder-neck obstruction; Translations: [Bladder neck stricture] Onset: 4 Chronic Other ear and sense organ disorders (1 source) Acute otitis externa of right ear; Translations: [Unspecified acute noninfective otitis externa, right ear] Episodic Other ear and sense organ disorders (1 source) Cellulitis of right external ear; Translations: [Cellulitis of right external ear] Episodic Other gastrointestinal disorders (6 sources) Dysphagia; Translations: [Dysphagia, unspecified] 11-06-2024 Episodic Other hereditary and degenerative nervous system conditions (1 source) Impaired cognition; Translations: [Mild cognitive impairment, so stated] 09-10-2024 Chronic Other hereditary and degenerative nervous system conditions (1 source) Mild cognitive impairment, so stated; Translations: [Mild cognitive impairment] Onset: Chronic Other injuries and conditions due to external causes (1 source) Injury of right knee; Translations: [Unspecified injury of right lower leg, initial encounter] 10-13-2020 Episodic Other injuries and conditions due to external causes (8 sources) Injury of head; Translations: [Other specified injuries of head, initial encounter] 09-11-2024 Episodic Other injuries and conditions due to external causes (1 source) Unspecified injury of head, initial encounter; Translations: [Unspecified injury of head, initial encounter] Onset: Episodic Other lower respiratory disease (2 sources) Dyspnea; Translations: [Shortness of breath] 09-12-2023 Episodic Other lower respiratory disease (4 sources) Wheezing; Translations: [Wheezing] 11-29-2023 Episodic Other lower respiratory disease (20 sources) Dyspnea on exertion; Translations: [Shortness of breath] Onset: 5 11-29-2023 Episodic Other lower respiratory disease (4 sources) Productive cough ; Translations: [Productive cough] 11-29-2023 Episodic Other lower respiratory disease (1 source) Nodule of lung; Translations: [Solitary pulmonary nodule] 12-13-2023 Episodic Other male genital disorders (20 sources) Secondary erectile dysfunction; 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, unspecified] Onset: 2 11-16-2021 Chronic Other nervous system disorders (8 sources) Expressive dysphasia; 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] 10-04-2023 Chronic Other nervous system disorders (6 sources) Disorder of brain; Translations: [Encephalopathy, unspecified] 11-18-2024 Chronic Other nervous system disorders (1 source) Abnormal gait; Translations: [Unsteadiness on feet] 05-16-2024 Episodic Other non-traumatic joint disorders (2 sources) Hip pain; Translations: [Pain in right hip] 11-10-2023 Episodic Other non-traumatic joint disorders (1 source) Pain in right hip; Translations: [Bilateral hip pain] Onset: 4 Episodic Other non-traumatic joint disorders (1 source) Pain in left hip; Translations: [Bilateral hip pain] Onset: 4 Episodic Other skin disorders (1 source) Skin lesion; Translations: [Disorder of the skin and subcutaneous tissue, unspecified] Episodic Other upper respiratory infections (1 source) Viral upper respiratory tract infection; Translations: [Acute upper respiratory infection, unspecified] 10-13-2020 Episodic Pulmonary heart disease (19 sources) Pulmonary hypertension; Translations: [Pulmonary hypertension, unspecified] Onset: 5 09-24-2019 Chronic Residual codes; unclassified (1 source) Behavior finding; Translations: [Other sleep apnea] 09-10-2024 Chronic Residual codes; unclassified (1 source) Other sleep apnea; Translations: [Sleep apnea-like behavior] Onset: Chronic Residual codes; unclassified (20 sources) Family [...] source) Amnesia; Translations: [Other amnesia] 09-10-2024 Episodic Respiratory failure; insufficiency; arrest (adult) (4 sources) Chronic hypoxemic respiratory failure; Translations: [Chronic respiratory failure with hypoxia] 05-16-2024 Chronic Respiratory failure; insufficiency; arrest (adult) (6 sources) Acute respiratory failure; Translations: [Acute respiratory failure with hypoxia] 11-18-2024 Episodic Septicemia (except in labor) (14 sources) Sepsis; Translations: [Sepsis, unspecified organism] Onset: 5 10-26-2024 Episodic Spondylosis; intervertebral disc disorders; other back problems (1 source) Lumbar spondylosis; Translations: [Spondylosis without myelopathy or radiculopathy, lumbar region] 11-23-2023 Chronic Superficial injury; contusion (9 sources) Right knee abrasion; Translations: [Abrasion, right knee, initial encounter] 09-19-2024 Episodic Transient cerebral ischemia (10 sources) Transient cerebral ischemia; Translations: [Transient cerebral ischemic attack, unspecified] Onset: 5 10-04-2023 Chronic Unclassified (1 source) Unknown / UNK(Unknown) Onset: 7 Unclassified (1 source) Acidosis, unspecified; Translations: [Acidosis, unspecified] Onset: 5 Unclassified (1 source) Chronic atrial fibrillation, unspecified; Translations: [Chronic atrial fibrillation, unspecified] Onset: 5 Unclassified (1 source) Permanent atrial fibrillation; Translations: [Permanent atrial fibrillation (HCC)] Onset: 2 Unclassified (1 source) BP Check Onset: 5 Past or Other Problems Problem Classification Problem Date Documented Date Episodic/Chronic Cardiac dysrhythmias (2 sources) Palpitations; Translations: [Tachycardia, unspecified] Onset: 07-12-2024 Episodic Diabetes mellitus without complication (20 sources) Hyperglycemia; Translations: [Hyperglycemia, unspecified] Onset: 07-03-2009 08-14-2009 Episodic Genitourinary symptoms and ill-defined conditions (20 sources) Increased frequency of urination; Translations: [Frequency of micturition] Onset: 10-21-2016 10-21-2016 Episodic Other aftercare (1 source) Encounter for follow-up examination after completed treatment for conditions other than malignant neoplasm; Translations: [Hospital discharge follow-up] Onset: 05-16-2024 Episodic Other circulatory disease (20 sources) Elevated blood-pressure reading without diagnosis of hypertension; Translations: [Elevated blood-pressure reading, without diagnosis of hypertension] Onset: 07-29-2022 07-29-2022 Episodic Other circulatory disease (1 source) Personal history of other diseases of the circulatory system; Translations: [History of atrial fibrillation] Onset: 09-10-2024 Episodic Other connective tissue disease (20 sources) Soft tissue lesion of shoulder region; Translations: [Bursopathy, unspecified] Onset: 10-15-2010 10-15-2010 Episodic Other connective tissue disease (20 sources) Digital mucous cyst of left hand; Translations: [Ganglion, left hand] Onset: 07-01-2017 07-01-2017 Episodic Other connective tissue disease (20 sources) Digital mucous cyst; Translations: [Ganglion, unspecified hand] Onset: 07-27-2017 07-27-2017 Episodic Other lower respiratory disease (2 sources) Other forms of dyspnea; Translations: [Other forms of dyspnea] Onset: 07-12-2024 Episodic Other lower respiratory disease (1 source) Wheezing; Translations: [Wheezing] Onset: 07-12-2024 Episodic Other lower respiratory disease (1 source) Solitary pulmonary nodule; Translations: [Lung nodule] Onset: 06-14-2024 Episodic Other male genital disorders (20 sources) Disorder of prostate; Translations: [Disorder of prostate, unspecified] Onset: 11-14-2007 11-14-2007 Episodic Other nutritional; endocrine; and metabolic disorders (20 sources) Body mass index 25-29 - overweight; Translations: [Overweight] Onset: 11-10-2016 11-10-2016 Episodic Other screening for suspected conditions (not mental disorders or infectious disease) (12 sources) Patient encounter status; Translations: [Encounter for screening for cardiovascular disorders] Onset: 07-12-2024 09-08-2023 Episodic Residual codes; unclassified (20 sources) Insomnia; Translations: [Insomnia, unspecified] Onset: 11-14-2007 11-14-2007 Episodic Residual codes; unclassified (1 source) Other amnesia; Translations: [Memory loss] Onset: 09-10-2024 Episodic Residual codes; unclassified (1 source) Localized edema; Translations: [Bilateral leg edema] Onset: 05-17-2024 Episodic Screening and history of mental health [...] Test Name Value Interpretation Reference Range Facility [facility] ([id number]) 1935 M Date Time Provider Department 12/13/24 DIPAK AGUILAR [facility] During your visit today, we recorded the following information about you: Chioma Alcantara RN 12/13/2024 12:19 PM Signed Maximo- [facility]- phoned to let pcp know a couple things: 1) SN will extend POC to next week - will see pt 1 x week for 1 week, for follow up and possible discharge. 2) Pt and reported to Maximo patient had a fall on 12/04/24, last . Pt has a skin tear on left elbow- it looks clean and Maximo just put a non adherent dressing on it. Pt also has a bruise on posterior right knee. Pt has 2/10 pain. Pt is walking decent. Maximo has no concerns and will check these areas again next week. Allergies As of Date: 12/13/2024 Noted Allergy Reaction CYPRESS 09/22/2010 14 - Other: See Comments Comments: sneezing,runny nose CEDAR 08/17/2010 3 - Cough Comments: also [place] with same reaction MOLD 08/17/2010 3 - Cough PREDNISONE 05/16/2024 1 - Mental Status Change Comments: Hallucinations Date Reviewed: 11/30/2024 Reviewed by: Elisa Garcia APRN.AUDIO VISUAL EQUIPMENT RENTAL CLERK - Fully Assessed Reason for Visit: [facility] extend POC to next week/report of fall [Other] Prescriptions as of 12/13/2024 - amiodarone (PACERONE) 200 mg tablet Take 1 tablet by mouth once daily. - famotidine (PEPCID) 20 mg tablet Take 40 mg by mouth once daily. - furosemide (LASIX) 20 mg tablet Take 40 mg by mouth once daily. - losartan (COZAAR) 100 mg tablet Take [...] once daily. Problem List As Of Date 12/13/2024 Noted Resolved BENIGN NEOPLASM LG BOWEL [D12.6] [...] on exertion [R06.02] 09/05/2024 Encounter Status:Closed by Chioma ALCANTARA on 12/13/24 [facility] 12[facility]10[facility]20[facility] TAZ JOH[facility] ([id number]) 1935 M Date Time Provider Department 12/10/24 [facility] During your visit today, we recorded the following information about you: Maryan Ron RN 12/10/2024 1:52 PM Signed Maximo from [facility] calls and states that patient has not had a bowel movement x 7 days. Patient denies nausea, bloating, and abdominal pain. Maximo had seen patient last and advised to give patient Miralax daily. had only given patient Miralax on Tuesday morning. Patient had taken a couple of Ex-lax on yesterday. Maximo spoke with and told her to give the Miralax daily. had voiced understanding. Maximo just wanted provider aware of this. LUPE Bahena Jordan L, DO 12/11/2024 10:25 AM Signed Agree with below Recommend miralax 1 capful daily Also needs to be taking magnesium glycinate 250-500 mg in the evening with supper to help his bowels DO Asaf Baeza Stephanie, RN 12/11/2024 11:57 AM Signed Maximo called and notified of below. Voices understanding. Maryan Ron RN Allergies As of Date: 12/10/2024 Noted Allergy Reaction CYPRESS 09/22/2010 14 - Other: See Comments Comments: sneezing,runny nose CEDAR 08/17/2010 3 - Cough Comments: also [place] with same reaction MOLD 08/17/2010 3 - Cough PREDNISONE 05/16/2024 1 - Mental Status Change Comments: Hallucinations Date Reviewed: 11/30/2024 Reviewed by: Elisa Garcia APRN.AUDIO VISUAL EQUIPMENT RENTAL CLERK - Fully Assessed Reason for Visit: Patient Update [1234] Prescriptions as of 12/11/2024 - amiodarone (PACERONE) 200 mg tablet Take 1 tablet by mouth once daily. - famotidine (PEPCID) 20 mg tablet Take 40 mg by mouth once daily. - furosemide (LASIX) 20 mg tablet Take 40 mg by mouth once daily. - losartan (COZAAR) 100 mg tablet Take [...] once daily. Problem List As Of Date 12/10/2024 Noted Resolved BENIGN NEOPLASM LG BOWEL [D12.6] [...] Cerebrovascular accident (CVA) (HCC) [I63.9] 09/05/2024 SOB (shortne (more content not included)... Normal [facility] Basic Metabolic Profile (BMP )on 12-05-2024 BUN Normal -19 [facility] Comment on above: Result Comment: Canc elled via OM: Order cancelled - Patient discharged Performed By: #### L 500.2500, L100.0100 ####[facility] [address] [place], [address] BUN/CRE Normal 10- [facility] Comment on above: Result Comment: Canc elled via OM: Order cancelled - Patient discharged Performed By: #### L 500.2500, L100.0100 ####[facility] [address] [place], [address] Calcium Normal 7.6-11.0 [facility] Comment on above: Result Comment: Canc elled via OM: Order cancelled - Patient discharged Performed By: #### L 500.2500, L100.0100 ####[facility] [address] [place], [address] CL Normal 98-108 [facility] Comment on above: Result Comment: Canc elled via OM: Order cancelled - Patient discharged Performed By: #### L 500.2500, L100.0100 ####[facility] [address] [place], [address] CO2 Normal 21.0-32.0 [facility] Comment on above: Result Comment: Canc elled via OM: Order cancelled - Patient discharged Performed By: #### L 500.2500, L100.0100 ####[facility] [address] [place], [address] CREAT,SERUM Normal 0.70-1.20 [facility] Comment on above: Result Comment: Canc elled via OM: Order cancelled - Patient discharged Performed By: #### L 500.2500, L100.0100 ####[facility] [address] [place], [address] eGFR Normal >60 [facility] Comment on above: Result Comment: Canc elled via OM: Order cancelled - Patient discharged Performed By: #### L 500.2500, L100.0100 ####[facility] [address] [place], [address] GAP Normal 5-15 [facility] Comment on above: Result Comment: Canc elled via OM: Order cancelled - Patient discharged Performed By: #### L 500.2500, L100.0100 ####[facility] [address] [place], [address] GLU Normal 70-99 [facility] Comment on above: Result Comment: Canc elled via OM: Order cancelled - Patient discharged Performed By: #### L 500.2500, L100.0100 ####[facility] [address] [place], [address] Potassium Normal 3.3-5.1 [facility] Comment on above: Result Comment: Canc elled via OM: Order cancelled - Patient discharged Performed By: #### L 500.2500, L100.0100 ####[facility] [address] [place], [address] Basic Metabolic Profile (BMP) Normal 133-145 [facility] Comment on above: Result Comment: Canc elled via OM: Order cancelled - Patient discharged Performed By: #### L 500.2500, L100.0100 ####[facility] [address] [place], [address] CBC W/Diff, Automatedon 11-21 Absolute Neut Normal 2.0-7.7 [facility] Comment on above: Result Comment: Canc elled via OM: Order cancelled - Patient discharged Performed By: #### L 500.2500, L100.0100 ####[facility] [address] [place], [address] HCT Normal 40-54 [facility] Comment on above: Result Comment: Canc elled via OM: Order cancelled - Patient discharged Performed By: #### L 500.2500, L100.0100 ####[facility] [address] [place], [address] HGB Normal 13.0-16.5 [facility] Comment on above: Result Comment: Canc elled via OM: Order cancelled - Patient discharged Performed By: #### L 500.2500, L100.0100 ####[facility] [address] [place], [address] MCH Normal 27.0-32.0 [facility] Comment on above: Result Comment: Canc elled via OM: Order cancelled - Patient discharged Performed By: #### L 500.2500, L100.0100 ####[facility] [address] [place], [address] MCHC Normal 32-36 [facility] Comment on above: Result Comment: Canc elled via OM: Order cancelled - Patient discharged Performed By: #### L 500.2500, L100.0100 ####[facility] [address] [place], [address] MCV Normal 80-94 [facility] Comment on above: Result Comment: Canc elled via OM: Order cancelled - Patient discharged Performed By: #### L 500.2500, L100.0100 ####[facility] [address] [place], [address] NEUT% Normal 47-70 [facility] Comment on above: Result Comment: Canc elled via OM: Order cancelled - Patient discharged Performed By: #### L 500.2500, L100.0100 ####[facility] [address] [place], [address] PLT Normal 150-450 [facility] Comment on above: Result Comment: Canc elled via OM: Order cancelled - Patient discharged Performed By: #### L 500.2500, L100.0100 ####[facility] [address] [place], [address] RBC Normal 4.6-6.2 [facility] Comment on above: Result Comment: Canc elled via OM: Order cancelled - Patient discharged Performed By: #### L 500.2500, L100.0100 ####[facility] [address] [place], [address] RDW CV Normal 11.6-14.6 [facility] Comment on above: Result Comment: Canc elled via OM: Order cancelled - Patient discharged Performed By: #### L 500.2500, L100.0100 ####[facility] [address] [place], [address] RDW SD Normal 35.1-43.9 [facility] Comment on above: Result Comment: Canc elled via OM: Order cancelled - Patient discharged Performed By: #### L 500.2500, L100.0100 ####[facility] [address] [place], [address] WBC Normal 4.4-11.0 [facility] Comment on above: Result Comment: Canc elled via OM: Order cancelled - Patient discharged Performed By: #### L 500.2500, L100.0100 ####[facility] [address] [place], [address] Catie 11-29-2024 [facility] Telephone (FAMPWS) TAZ JOHNSON ([id number]) 1935 M Date Time Provider Department 11/29/24 ELISA GARCIA During your visit today, we recorded the following information about you: Elisa Garcia APRN.ESTIVEN 11/29/2024 7:13 AM Signed Please let Taz' Shayy know I was able to discuss our visit yesterday with Dr. Aguilar. She does agree that she would prefer him to continue to see Dr. Issa for his urinary/prostate concerns. Please have them schedule a follow up with his office in the next 6-8 weeks. We would like him to see one of our general surgeons for his opinion of his gallbladder. Please assist them to schedule with Dr. Landaverde. Elisa Garcia APRN.Monica Elias LPN 11/29/2024 8:16 AM Signed Spoke with natalie's Shayy , gave information provided . She voices understanding. Please assist in scheduling with both providers. Allergies As of Date: 11/29/2024 Noted Allergy Reaction CYPRESS 09/22/2010 14 - Other: See Comments Comments: sneezing,runny nose CEDAR 08/17/2010 3 - Cough Comments: also [place] with same reaction MOLD 08/17/2010 3 - Cough PREDNISONE 05/16/2024 1 - Mental Status Change Comments: Hallucinations Date Reviewed: 11/29/2024 Reviewed by: Elisa Garcia APRN.AUDIO VISUAL EQUIPMENT RENTAL CLERK - Fully Assessed Reason for Visit: appontment follow up [Other] Prescriptions as of 12/04/2024 - amiodarone (PACERONE) 200 mg tablet Take 1 tablet by mouth once daily. - famotidine (PEPCID) 20 mg tablet Take 40 mg by mouth once daily. - furosemide (LASIX) 20 mg tablet Take 40 mg by mouth once daily. - losartan (COZAAR) 100 mg tablet Take [...] once daily. Problem List As Of Date 11/29/2024 Noted Resolved BENIGN NEOPLASM LG BOWEL [D12.6] [...] on exertion [R06.02] 09/05/2024 Encounter Status:Closed by ELISA GARCIA on 12/04/24 Normal [facility] Basic Metabolic Profile (BMP )on 11-28-2024 BUN Normal 06-09 [facility] Comment on above: Result Comment: Canc elled via OM: Order cancelled - Patient discharged Performed By: #### L 100.0100, L500.2500 ####[facility] [address] [place], [address] BUN/CRE Normal 10-20 [facility] Comment on above: Result Comment: Canc elled via OM: Order cancelled - Patient discharged Performed By: #### L 100.0100, L500.2500 ####[facility] [address] [place], [address] Calcium Normal 7.6-11.0 [facility] Comment on above: Result Comment: Canc elled via OM: Order cancelled - Patient discharged Performed By: #### L 100.0100, L500.2500 ####[facility] [address] [place], [address] CL Normal 98-108 [facility] Comment on above: Result Comment: Canc elled via OM: Order cancelled - Patient discharged Performed By: #### L 100.0100, L500.2500 ####[facility] [address] [place], [address] CO2 Normal 21.0-32.0 [facility] Comment on above: Result Comment: Canc elled via OM: Order cancelled - Patient discharged Performed By: #### L 100.0100, L500.2500 ####[facility] [address] [place], [address] CREAT,SERUM Normal 0.70-1.20 [facility] Comment on above: Result Comment: Canc elled via OM: Order cancelled - Patient discharged Performed By: #### L 100.0100, L500.2500 ####[facility] [address] [place], [address] eGFR Normal >60 [facility] Comment on above: Result Comment: Canc elled via OM: Order cancelled - Patient discharged Performed By: #### L 100.0100, L500.2500 ####[facility] [address] [place], [address] GAP Normal 5-15 [facility] Comment on above: Result Comment: Canc elled via OM: Order cancelled - Patient discharged Performed By: #### L 100.0100, L500.2500 ####[facility] [address] [place], [address] GLU Normal 70-99 [facility] Comment on above: Result Comment: Canc elled via OM: Order cancelled - Patient discharged Performed By: #### L 100.0100, L500.2500 ####[facility] [address] [place], [address] Potassium Normal 3.3-5.1 [facility] Comment on above: Result Comment: Canc elled via OM: Order cancelled - Patient discharged Performed By: #### L 100.0100, L500.2500 ####[facility] [address] [place], [address] Basic Metabolic Profile (BMP) Normal 133-145 [facility] Comment on above: Result Comment: Canc elled via OM: Order cancelled - Patient discharged Performed By: #### L 100.0100, L500.2500 ####[facility] [address] [place], [address] CBC W/Diff, Automatedon 10-0 -2024 Absolute Neut Normal 2.0-7.7 [facility] Comment on above: Result Comment: Canc elled via OM: Order cancelled - Patient discharged Performed By: #### L 100.0100, L500.2500 ####[facility] [address] [place], [address] HCT Normal 40-54 [facility] Comment on above: Result Comment: Canc elled via OM: Order cancelled - Patient discharged Performed By: #### L 100.0100, L500.2500 ####[facility] [address] [place], [address] HGB Normal 13.0-16.5 [facility] Comment on above: Result Comment: Canc elled via OM: Order cancelled - Patient discharged Performed By: #### L 100.0100, L500.2500 ####[facility] [address] [place], [address] MCH Normal 27.0-32.0 [facility] Comment on above: Result Comment: Canc elled via OM: Order cancelled - Patient discharged Performed By: #### L 100.0100, L500.2500 ####[facility] [address] [place], [address] MCHC Normal 32-36 [facility] Comment on above: Result Comment: Canc elled via OM: Order cancelled - Patient discharged Performed By: #### L 100.0100, L500.2500 ####[facility] [address] [place], [address] MCV Normal 80-94 [facility] Comment on above: Result Comment: Canc elled via OM: Order cancelled - Patient discharged Performed By: #### L 100.0100, L500.2500 ####[facility] [address] [place], [address] NEUT% Normal 47-70 [facility] Comment on above: Result Comment: Canc elled via OM: Order cancelled - Patient discharged Performed By: #### L 100.0100, L500.2500 ####[facility] [address] [place], [address] PLT Normal 150-450 [facility] Comment on above: Result Comment: Canc elled via OM: Order cancelled - Patient discharged Performed By: #### L 100.0100, L500.2500 ####[facility] [address] [place], [address] RBC Normal 4.6-6.2 [facility] Comment on above: Result Comment: Canc elled via OM: Order cancelled - Patient discharged Performed By: #### L 100.0100, L500.2500 ####[facility] [address] [place], [address] RDW CV Normal 11.6-14.6 [facility] Comment on above: Result Comment: Canc elled via OM: Order cancelled - Patient discharged Performed By: #### L 100.0100, L500.2500 ####[facility] [address] [place], [address] RDW SD Normal 35.1-43.9 [facility] Comment on above: Result Comment: Canc elled via OM: Order cancelled - Patient discharged Performed By: #### L 100.0100, L500.2500 ####[facility] [address] [place], [address] WBC Normal 4.4-11.0 [facility] Comment on above: Result Comment: Canc elled via OM: Order cancelled - Patient discharged Performed By: #### L 100.0100, L500.2500 ####[facility] [address] [place], [address] CNOVon 11-28-2024 CNOV Office Visit (RALEIGHPWS ) TAZ JOHNSON ([id number]) 1935 M Date Time Provider Department 11/28/24 9:40 AM ELISA GARCIA FAMPMARLEN During your visit today, we recorded the following information about you: Pulse Blood pressure Weight 95/minute 110/64 87.1 kg Elisa Garcia APRN.CNP 11/30/2024 4:11 PM Signed Transitional Care Management Progress Note The patients TCM visit was performed within the 14 days of discharge. Patient's Date of discharge: 11/20/2024 Date of initial coordinator contact after discharge: NA Discharge diagnosis: BPH, sepsis, urinary retention, weakness, cholecystitis, cholelithiasis Medication review completed Yes Elisa Garcia APRN.AUDIO VISUAL EQUIPMENT RENTAL CLERK Provider Documentation: In follow-up of hospitalization, Taz Johnson is a 89 year old male with the chief complaint of hospital f/u for BPH/daily self-catheterization, cholecystitis and cholecystostomy tube. I have reviewed the patient?s last hospital course including diagnostic testing performed during this hospitalization, their discharge medications, and my assessment and plan with the patient and any family members present at today?s visit. HPI: Recent hospitalization at [facility] and TCU admit and discharge. Gallbladder: current cholecystostomy tube and PERI drain in place, patient/ empty it for greenish drainage 3x daily. They saw Dr. Cavazos on 11/23 and he told them to leave the drain in place and he needed to follow up with a specialist for consideration for removal of his gallbladder. Patient denies any current pain-generalized or localized, appetite fairly normal, no bloating or early satiety. Drain insertion site is not painful. BPH: hx BPH and need for daily self-cath in the past. Has previously seen Dr. Issa through [facility]-saw most recently in September 2024 and was told to just f/u prn. Developed urinary retention while in the hospital and had continuous benavides in place and then saw Dr. Asencio most recently on 11/27, outpatient. He was told to self straight cath daily, indefinitely, and to follow up prn. States he is not having any current difficulty with urination but was told the daily self cathing is to help prevent further stricture from scar tissue. He does have several boxes of catheters at home from his previous self cathing a year+ ago PAST MEDICAL HISTORY: Reviewed and updated ALLERGIES: Reviewed and updated MEDICATIONS: Reviewed and updated SOCIAL HISTORY: Reviewed and updated FAMILY HISTORY: Reviewed and updated REVIEW OF SYSTEMS: All other systems reviewed and negative, other than HPI. PHYSICAL EXAMINATION BP 110/64 Pulse 95 Wt 192 lb (87.1kg) SpO2 97% General appearance: Walker, alert, in no acute distress, and well-hydrated, well nourished, motor and sensory appear to be normal Lungs: clear to auscultation no wheezing or rhonchi Heart: RRR without murmur, gallop, or rubs. No ectopy Abdomen: PERI drain to RUQ, no s/s infection, patent, dressing surrounding insertion site 1. I have reviewed the patient record including associated test results during the last hospitalization Yes 2. I have reviewed Lab test Yes 3. I have reviewed Radiology test Yes 4. I reviewed assessment/plan with the patient/family member Yes ASSESSMENT/PLAN ASSESSMENT/PLAN: 1. Cholecystitis - ICD9: 575.10, ICD10: K81.9 (primary diagnosis) Requesting Dr. Landaverde Discussed s/s infection of drain and insertion site - CONSULT TO GENERAL SURGERY 2. H/O insertion of cholecystostomy tube - ICD9: V45.89, ICD10: Z98.[address] Landaverde Discussed s/s infection of drain and insertion site - CONSULT TO GENERAL SURGERY 3. Permanent atrial fibrillation (HCC) - ICD9: 427.31, ICD10: I48.21 controlled 4. Hypertension, essential - ICD9: 401.9, ICD10: I10 - Controlled - Continue current medications 5. Poor urinary stream - ICD9: 788.62, ICD10: R39.[address] Issa, patient is known to him 6. 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 Issa, patient is known to him 7. Benign prostatic hyperplasia with incomplete bladder emptying - ICD9: 600.01, 788.21, ICD10: N40.1, R39.[address] Issa, patient is known to him 8. 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 Landaverde - CONSULT TO GENERAL SURGERY Elisa Garcia APRN.CNP November 29, 2024 8:51 AM Allergies As of Date: 11/28/2024 Noted Allergy Reaction CYPRESS 09/22/2010 14 - Other: See Comments Comments: sneezing,runny nose CEDAR 08/17/2010 3 - Cough Comments: also [place] with same reaction MOLD 08/17/2010 3 - Cough PREDNISONE 05/16/2024 1 - Mental Status Change Comments: Hallucinations Date Reviewed: 11/28/2024 Reviewed by: Elisa Garcia APRN.AUDIO VISUAL EQUIPMENT RENTAL CLERK - Fully Assessed Reason for Visit: ER F/U [41] Cmt: D/c [facility] 10/ (more content not included)... Normal [facility] CNPNon 11-26-2024 CNPN Telephone (FAMPWS) TAZ JOHNSON ([id number]) 1935 M Date Time Provider Department 11/26/24 [facility]AR [facility] During your visit today, we recorded the following information about you: Tali Hogan RN 11/26/2024 11:44 AM Signed Pipo PT calling from [facility] to report plan of care for patient and PT will visit patient 2 times a week for three weeks.PT will work with patient on functional mobility. No call back necessary. Tali Hogan RN Allergies As of Date: 11/26/2024 Noted Allergy Reaction CYPRESS 09/22/2010 14 - Other: See Comments Comments: sneezing,runny nose CEDAR 08/17/2010 3 - Cough Comments: also [place] with same reaction MOLD 08/17/2010 3 - Cough PREDNISONE 05/16/2024 1 - Mental Status Change Comments: Hallucinations Date Reviewed: 09/25/2024 Reviewed by: Aj Issa MD - Fully Assessed Prescriptions as of 11/26/2024 - losartan (COZAAR) 100 mg tablet Take [...] once daily. Problem List As Of Date 11/26/2024 Noted Resolved BENIGN NEOPLASM LG BOWEL [D12.6] [...] on exertion [R06.02] 09/05/2024 Encounter Status:Closed by TALI HOGAN on 11/26/24 [facility] JOH[facility]ON ([id number]) 1935 M Date Time Provider Department 11/23/24 [facility] AG[facility]ILAR [facility] During your visit today, we recorded the following information about you: Mirza Carrillo LPN 11/23/2024 3:06 PM Signed Maximo from [facility] Home Health calling with alf plan of care, starting next week 2 visits weekly for 2 weeks, then 1 visit weekly for 1 week. Home Health Aide starting next week 1 visit 2 times weekly to assist with bathing. Patient is taking multi vitamin one daily and Senna 50/8.6 one twice daily, new medication he is on Flomax, Potassium, Amiodarone. Patient is not taking Omeprazole changed to Pepcid 40 mg due to interaction with Eliquis. Patient not taking vitamin D 3 and not using nasal spray and not taking magnesium. Patient has hospital follow mid week with [facility]. Dipak Aguilar DO 11/28/2024 7:26 AM Signed Noted Dipak Aguilar DO Allergies As of Date: 11/23/2024 Noted Allergy Reaction CYPRESS 09/22/2010 14 - Other: See Comments Comments: sneezing,runny nose CEDAR 08/17/2010 3 - Cough Comments: also [place] with same reaction MOLD 08/17/2010 3 - Cough PREDNISONE 05/16/2024 1 - Mental Status Change Comments: Hallucinations Date Reviewed: 09/25/2024 Reviewed by: Aj Issa MD - Fully Assessed Reason for Visit: skilled nuring plan of care, medication changes while in [facility] [Other] Prescriptions as of 11/28/2024 - losartan (COZAAR) 100 mg tablet Take [...] once daily. Problem List As Of Date 11/23/2024 Noted Resolved BENIGN NEOPLASM LG BOWEL [D12.6] [...] on exertion [R06.02] 09/05/2024 Encounter Status:Closed by LAURA BEJARANO LPN on 11/28/24 Normal [facility] Surgery Visit Reporton 11-23 Surgery Visit Report Normal [facility] 11-22-2024 LAKSHMI Telephone (ASHLEIGH) TAZ JOHNSON ([id number]) 1935 M Date Time Provider Department 11/22/24 DIPAK AGUILAR During your visit today, we recorded the following information about you: Mirza Carrillo LPN 11/22/2024 2:10 PM Signed Martina from [facility] Home Health calling patient discharged today from TCU to home, was there for cholelithiasis and encephalopathy. Received orders for alf, PT/OT, home health aide. Asking if PCP would follow patient and sign orders? Please advise Radha Berman APRN.ESTIVEN 11/22/2024 3:47 PM Signed Yes, PCP team will follow. Radha Berman APRN.Mirza Pop LPN 11/22/2024 4:52 PM Signed Phoned Martina left detailed message with notes from [facility] [facility] on voicemail. Allergies As of Date: 11/22/2024 Noted Allergy Reaction CYPRESS 09/22/2010 14 - Other: See Comments Comments: sneezing,runny nose CEDAR 08/17/2010 3 - Cough Comments: also [place] with same reaction MOLD 08/17/2010 3 - Cough PREDNISONE 05/16/2024 1 - Mental Status Change Comments: Hallucinations Date Reviewed: 09/25/2024 Reviewed by: Aj Issa MD - Fully Assessed Reason for Visit: home health calling [Other] Prescriptions as of 11/22/2024 - losartan (COZAAR) 100 mg tablet Take [...] once daily. Problem List As Of Date 11/22/2024 Noted Resolved BENIGN NEOPLASM LG BOWEL [D12.6] [...] on exertion [R06.02] 09/05/2024 Encounter Status:Closed by MIRZA CARRILLO on 11/22/24 Normal [facility] COVID 19 AG RAPID (LUPE Toussaint)on 11-22-2024 SARS-CoV-2 (COVID-19) RNA ELOY+probe Ql (Unsp spec) Normal [facility] Comment on above: Performed By: #### M 100.505 ####[facility] [address] [place], [address] COVID-19 virus antigen assay Ordered By: Brandon Black on 11-22-2024 SARS-CoV-2 (COVID-19) Ag IA.rapid Ql (Resp) [facility] Absolute lymphocyte countOrd ered By: Brandon Black on 11-21-2024 Lymphocytes Auto (Unsp spec) [#/Vol] 1.05 10*3/uL 0.83-4.51 [facility] Anion gap in Serum or Plasma Ordered By: Brandon Black on 11-21-2024 Anion gap [Moles/Vol] 11 mmol/L 5-15 [facility] Automated lymphocyte count a s percentage of total leukocytesOrdered By: Brandon Black on 11-21-2024 Lymphocytes/100 WBC Auto (Unsp spec) 12.8 % Low 19-41 [facility] BUN/creatinine ratioOrdered By: Brandon Black on 11-21-2024 Urea nitrogen/Creatinine [Mass ratio] 9.6 mg/mg Low 10-20 [facility] Basic Metabolic Profile (BMP )on 11-21-2024 BUN/CRE 9.6 RATIO Low - [facility] Comment on above: Performed By: #### L 100.0100, L500.2500 ####[facility] [address] [place], [address] Calcium [Mass/Vol] 9.6 mg/dL Normal 7.6-11.0 [facility] Comment on above: Performed By: #### L 100.0100, L500.2500 ####[facility] [address] [place], [address] Chloride [Moles/Vol] 101 mmol/L Normal 98-108 [facility] Comment on above: Performed By: #### L 100.0100, L500.2500 ####[facility] [address] [place], [address] CO2 [Moles/Vol] 25.6 mmol/L Normal 21.0-32.0 [facility] Comment on above: Performed By: #### L 100.0100, L500.2500 ####[facility] [address] [place], [address] Creatinine [Mass/Vol] 1.39 mg/dL High 0.70-1.20 [facility] Comment on above: Performed By: #### L 100.0100, L500.2500 ####[facility] [address] [place], [address] ECRCL 40.32 ml/min Low 50-250 [facility] Comment on above: Performed By: #### L 100.0100, L500.2500 ####[facility] [address] [place], [address] GAP 11 Normal 5-15 [facility] Comment on above: Performed By: #### L 100.0100, L500.2500 ####[facility] [address] [place], [address] GFR/1.73 sq M.predicted among non-blacks MDRD (S/P/Bld) [Vol rate/Area] 49 mL/min/{1.73_m2} Low >60 [facility] Comment on above: Result Comment: mL/m in/1.73m2 CKD-EPI Creatinine Equation (2020) Performed By: #### L 100.0100, L500.2500 ####[facility] [address] [place], [address] Glucose [Mass/Vol] 109 mg/dL High 70-99 [facility] Comment on above: Performed By: #### L 100.0100, L500.2500 ####[facility] [address] [place], [address] Potassium [Moles/Vol] 4.2 mmol/L Normal 3.3-5.1 [facility] Comment on above: Performed By: #### L 100.0100, L500.2500 ####[facility] [address] [place], [address] Sodium [Moles/Vol] 138 mmol/L Normal 133-145 [facility] Comment on above: Performed By: #### L 100.0100, L500.2500 ####[facility] [address] [place], [address] Urea nitrogen [Mass/Vol] 13 mg/dL Normal 4-19 [facility] Comment on above: Performed By: #### L 100.0100, L500.2500 ####[facility] [address] [place], [address] Basophil percentageOrdered B y: Brandon Black on 11-21-2024 Basophils/100 WBC (Bld) 1.2 % High 0-1 [facility] CBC W/Diff, Automatedon 10-0 Absolute Lymph 1.05 X10 3/uL Normal 0.83-4.51 [facility] Comment on above: Performed By: #### L 100.0100, L500.2500 ####[facility] [address] [place], [address] Absolute Neut 5.5 X10 3/uL Normal 2.0-7.7 [facility] Comment on above: Performed By: #### L 100.0100, L500.2500 ####[facility] [address] [place], [address] Basophils/100 WBC (Bld) 1.2 % High 0-1 [facility] Comment on above: Performed By: #### L 100.0100, L500.2500 ####[facility] [address] [place], [address] Eosinophils/100 WBC (Bld) 4.4 % Normal 0-5 [facility] Comment on above: Performed By: #### L 100.0100, L500.2500 ####[facility] [address] [place], [address] Erythrocyte distribution width (RBC) [Ratio] 15.9 % High 11.6-14.6 [facility] Comment on above: Performed By: #### L 100.0100, L500.2500 ####[facility] [address] [place], [address] Hematocrit (Bld) [Volume fraction] 36.2 % Low 40-54 [facility] Comment on above: Performed By: #### L 100.0100, L500.2500 ####[facility] [address] [place], [address] Hemoglobin (Bld) [Mass/Vol] 12.2 g/dL Low 13.0-16.5 [facility] Comment on above: Performed By: #### L 100.0100, L500.2500 ####[facility] [address] [place], [address] IG% 2.200 High 0.0-0.9 [facility] Comment on above: Result Comment: IG% - Immature Granulocytes (promyelocytes, myelocytes andmetamyelocytes) > 1% indicates that a LEFT SHIFT is Present. Performed By: #### L 100.0100, L500.2500 ####[facility] [address] [place], [address] Lymphocytes/100 WBC (Bld) 12.8 % Low 19-41 [facility] Comment on above: Performed By: #### L 100.0100, L500.2500 ####[facility] [address] [place], [address] MCH (RBC) [Entitic mass] 29.7 pg Normal 27.0-32.0 [facility] Comment on above: Performed By: #### L 100.0100, L500.2500 ####[facility] [address] [place], [address] MCHC (RBC) [Mass/Vol] 33.7 g/dL Normal 32-36 [facility] Comment on above: Performed By: #### L 100.0100, L500.2500 ####[facility] [address] [place], [address] MCV (RBC) [Entitic vol] 88.1 fL Normal 80-94 [facility] Comment on above: Performed By: #### L 100.0100, L500.2500 ####[facility] [address] [place], [address] Monocytes/100 WBC (Bld) 12.0 % High 0-10 [facility] Comment on above: Performed By: #### L 100.0100, L500.2500 ####[facility] [address] [place], [address] Neutrophils/100 WBC (Bld) 67.4 % Normal 47-70 [facility] Comment on above: Performed By: #### L 100.0100, L500.2500 ####[facility] [address] [place], [address] Nucleated RBC (Bld) [#/Vol] 0 10*3/uL Normal 0-5 [facility] Comment on above: Performed By: #### L 100.0100, L500.2500 ####[facility] [address] [place], [address] Platelet mean volume (Bld) [Entitic vol] 9.9 fL Normal 6.2-12.0 [facility] Comment on above: Performed By: #### L 100.0100, L500.2500 ####[facility] [address] [place], [address] Platelets (Bld) [#/Vol] 239 10*3/uL Normal 150-450 [facility] Comment on above: Performed By: #### L 100.0100, L500.2500 ####[facility] [address] [place], [address] RBC (Bld) [#/Vol] 4.11 10*6/uL Low 4.6-6.2 [facility] Comment on above: Performed By: #### L 100.0100, L500.2500 ####[facility] [address] [place], [address] RDW SD 51.2 fl High 35.1-43.9 [facility] Comment on above: Performed By: #### L 100.0100, L500.2500 ####[facility] [address] [place], [address] WBC (Bld) [#/Vol] 8.2 10*3/uL Normal 4.4-11.0 [facility] Comment on above: Performed By: #### L 100.0100, L500.2500 ####[facility] [address] [place], [address] Carbon dioxide, total [Moles /volume] in Central venous bloodOrdered By: Brandon Black on 11-21-2024 CO2 [Moles/Vol] 25.6 mmol/L 21.0-32.0 [facility] Chloride assayOrdered By: Maykel Black on 11-21-2024 Chloride [Moles/Vol] 101 mmol/L 98-108 [facility] Eosinophil percentageOrdered By: Brandon Black on 11-21-2024 Eosinophils/100 WBC (Bld) 4.4 % 0-5 [facility] Erythrocyte distribution wid th ratioOrdered By: Brandon Black on 11-21-2024 Erythrocyte distribution width (RBC) [Ratio] 15.9 % High 11.6-14.6 [facility] Erythrocyte distribution wid th standard deviationOrdered By: Brandon Black on 11-21-2024 Erythrocyte distribution width (RBC) [Ratio] 51.2 fl High 35.1-43.9 [facility] Glomerular filtration rate ( GFR) estimation/1.73 sq m using serum, plasma, or whole bOrdered By: Brandon Black on 11-21-2024 GFR/1.73 sq M.predicted among non-blacks MDRD (S/P/Bld) [Vol rate/Area] 49 mL/min/{1.73_m2} Low >60 [facility] Hematocrit Auto (Bld) [Volum e fraction]Ordered By: Brandon Black 11-21-2024 Hematocrit (Bld) [Volume fraction] 36.2 % Low 40-54 [facility] Hemoglobin measurementOrdere d By: Brandon Black on 11-21-2024 Hemoglobin (Bld) [Mass/Vol] 12.2 g/dL Low 13.0-16.5 [facility] Immature granulocytes/100 WB C Auto (Bld)Ordered By: Brandon Black 11-21-2024 Immature granulocytes/100 WBC (Bld) 2.200 % High 0.0-0.9 [facility] MCV (mean corpuscular volume ) determinationOrdered By: Brandon Black 11-21-2024 MCV (RBC) [Entitic vol] 88.1 fL 80-94 [facility] Mean corpuscular hemoglobin (MCH) determinationOrdered By: Brandon Black on 11-21-2024 MCH (RBC) [Entitic mass] 29.7 pg 27.0-32.0 [facility] Monocyte percentageOrdered B y: Brandon Black on 11-21-2024 Monocytes/100 WBC (Bld) 12.0 % High 0-10 [facility] Neutrophil percentageOrdered By: Brandon Black on 11-21-2024 Neutrophils/100 WBC (Bld) 67.4 % 47-70 [facility] Platelet countOrdered By: Maykel Black on 11-21-2024 Platelets (Bld) [#/Vol] 239 10*3/uL 150-450 [facility] Potassium measurement (mass/ volume)Ordered By: Brandon Black on 11-21-2024 Potassium (Unsp spec) [Mass/Vol] 4.2 mmol/L 3.3-5.1 [facility] RBC Auto (Bld) [#/Vol]Ordere d By: Brandon Black on 11-21-2024 RBC (Bld) [#/Vol] 4.11 10*6/uL Low 4.6-6.2 [facility] Serum creatinine measurement (mass/volume)Ordered By: Brandon Black on 11-21-2024 Creatinine [Mass/Vol] 1.39 mg/dL High 0.70-1.20 [facility] Serum glucose measurement (m ass/volume)Ordered By: Brandon Blcak on 11-21-2024 Glucose [Mass/Vol] 109 mg/dL High 70-99 [facility] Serum or plasma calcium maritza urement (mass/volume)Ordered By: Brandon Black on 11-21-2024 Calcium [Mass/Vol] 9.6 mg/dL 7.6-11.0 [facility] Serum or plasma urea nitroge n measurement (mass/volume)Ordered By: Brandon Black on 11-21-2024 Urea nitrogen [Mass/Vol] 13 mg/dL 4-19 [facility] Sodium levelOrdered By: Brandon Black on 11-21-2024 Sodium [Moles/Vol] 138 mmol/L 133-145 [facility] White blood cell (WBC) count Ordered By: Brandon Black on 11-21-2024 WBC (Bld) [#/Vol] 8.2 10*3/uL 4.4-11.0 [facility] Absolute lymphocyte countOrd ered By: Brandon Wayne on 11-14-2024 Lymphocytes Auto (Unsp spec) [#/Vol] 0.82 10*3/uL Low 0.83-4.51 [facility] Anion gap in Serum or Plasma Ordered By: Brandon Black on 11-14-2024 Anion gap [Moles/Vol] 10 mmol/L - [facility] Automated lymphocyte count a s percentage of total leukocytesOrdered By: Brandon Balck on 11-14-2024 Lymphocytes/100 WBC Auto (Unsp spec) 7.4 % Low 19-41 [facility] BUN/creatinine ratioOrdered By: Brandon Black on 11-14-2024 Urea nitrogen/Creatinine [Mass ratio] 15.1 mg/mg 12-10 [facility] Basic Metabolic Profile (BMP )on 11-14-2024 BUN/CRE 15.1 RATIO Normal 12-10 [facility] Comment on above: Performed By: #### L 500.2500, L100.0100 ####[facility] [address] [place], [address] Calcium [Mass/Vol] 9.1 mg/dL Normal 7.6-11.0 [facility] Comment on above: Performed By: #### L 500.2500, L100.0100 ####[facility] [address] [place], [address] Chloride [Moles/Vol] 105 mmol/L Normal 98-108 [facility] Comment on above: Performed By: #### L 500.2500, L100.0100 ####[facility] [address] [place], [address] CO2 [Moles/Vol] 25.6 mmol/L Normal 21.0-32.0 [facility] Comment on above: Performed By: #### L 500.2500, L100.0100 ####[facility] [address] [place], [address] Creatinine [Mass/Vol] 1.16 mg/dL Normal 0.70-1.20 [facility] Comment on above: Performed By: #### L 500.2500, L100.0100 ####[facility] [address] [place], [address] ECRCL 52.39 ml/min Normal 50-250 [facility] Comment on above: Performed By: #### L 500.2500, L100.0100 ####[facility] [address] [place], [address] GAP 10 Normal 5-15 [facility] Comment on above: Performed By: #### L 500.2500, L100.0100 ####[facility] [address] [place], [address] GFR/1.73 sq M.predicted among non-blacks MDRD (S/P/Bld) [Vol rate/Area] 61 mL/min/{1.73_m2} Normal >60 [facility] Comment on above: Result Comment: mL/m in/1.73m2 CKD-EPI Creatinine Equation (2020) Performed By: #### L 500.2500, L100.0100 ####[facility] [address] [place], [address] Glucose [Mass/Vol] 131 mg/dL High 70-99 [facility] Comment on above: Performed By: #### L 500.2500, L100.0100 ####[facility] [address] [place], [address] Potassium [Moles/Vol] 4.3 mmol/L Normal 3.3-5.1 [facility] Comment on above: Performed By: #### L 500.2500, L100.0100 ####[facility] [address] [place], [address] Sodium [Moles/Vol] 140 mmol/L Normal 133-145 [facility] Comment on above: Performed By: #### L 500.2500, L100.0100 ####[facility] [address] [place], [address] Urea nitrogen [Mass/Vol] 18 mg/dL Normal 4-19 [facility] Comment on above: Performed By: #### L 500.2500, L100.0100 ####[facility] [address] [place], [address] Basophil percentageOrdered B y: Brandon Black on 11-14-2024 Basophils/100 WBC (Bld) 0.6 % 0-1 [facility] CBC W/Diff, Automatedon 10-23 Absolute Lymph 0.82 X10 3/uL Low 0.83-4.51 [facility] Comment on above: Performed By: #### L 500.2500, L100.0100 ####[facility] [address] [place], [address] Absolute Neut 9.4 X10 3/uL High 2.0-7.7 [facility] Comment on above: Performed By: #### L 500.2500, L100.0100 ####[facility] [address] [place], [address] Basophils/100 WBC (Bld) 0.6 % Normal 0-1 [facility] Comment on above: Performed By: #### L 500.2500, L100.0100 ####[facility] [address] [place], [address] Eosinophils/100 WBC (Bld) 0.1 % Normal 0-5 [facility] Comment on above: Performed By: #### L 500.2500, L100.0100 ####[facility] [address] [place], [address] Erythrocyte distribution width (RBC) [Ratio] 15.9 % High 11.6-14.6 [facility] Comment on above: Performed By: #### L 500.2500, L100.0100 ####[facility] [address] [place], [address] Hematocrit (Bld) [Volume fraction] 33.7 % Low 40-54 [facility] Comment on above: Performed By: #### L 500.2500, L100.0100 ####[facility] [address] [place], [address] Hemoglobin (Bld) [Mass/Vol] 11.0 g/dL Low 13.0-16.5 [facility] Comment on above: Performed By: #### L 500.2500, L100.0100 ####[facility] [address] [place], [address] IG% 1.500 High 0.0-0.9 [facility] Comment on above: Result Comment: IG% - Immature Granulocytes (promyelocytes, myelocytes andmetamyelocytes) > 1% indicates that a LEFT SHIFT is Present. Performed By: #### L 500.2500, L100.0100 ####[facility] [address] [place], [address] Lymphocytes/100 WBC (Bld) 7.4 % Low 19-41 [facility] Comment on above: Performed By: #### L 500.2500, L100.0100 ####[facility] [address] [place], [address] MCH (RBC) [Entitic mass] 29.6 pg Normal 27.0-32.0 [facility] Comment on above: Performed By: #### L 500.2500, L100.0100 ####[facility] [address] [place], [address] MCHC (RBC) [Mass/Vol] 32.6 g/dL Normal 32-36 [facility] Comment on above: Performed By: #### L 500.2500, L100.0100 ####[facility] [address] [place], [address] MCV (RBC) [Entitic vol] 90.8 fL Normal 80-94 [facility] Comment on above: Performed By: #### L 500.2500, L100.0100 ####[facility] [address] [place], [address] Monocytes/100 WBC (Bld) 6.5 % Normal 0-10 [facility] Comment on above: Performed By: #### L 500.2500, L100.0100 ####[facility] [address] [place], [address] Neutrophils/100 WBC (Bld) 83.9 % High 47-70 [facility] Comment on above: Performed By: #### L 500.2500, L100.0100 ####[facility] [address] [place], [address] Nucleated RBC (Bld) [#/Vol] 0 10*3/uL Normal 0-5 [facility] Comment on above: Performed By: #### L 500.2500, L100.0100 ####[facility] [address] [place], [address] Platelet mean volume (Bld) [Entitic vol] 9.9 fL Normal 6.2-12.0 [facility] Comment on above: Performed By: #### L 500.2500, L100.0100 ####[facility] [address] [place], [address] Platelets (Bld) [#/Vol] 379 10*3/uL Normal 150-450 [facility] Comment on above: Performed By: #### L 500.2500, L100.0100 ####[facility] [address] [place], [address] RBC (Bld) [#/Vol] 3.71 10*6/uL Low 4.6-6.2 [facility] Comment on above: Performed By: #### L 500.2500, L100.0100 ####[facility] [address] [place], [address] RDW SD 52.7 fl High 35.1-43.9 [facility] Comment on above: Performed By: #### L 500.2500, L100.0100 ####[facility] [address] [place], [address] WBC (Bld) [#/Vol] 11.1 10*3/uL High 4.4-11.0 [facility] Comment on above: Performed By: #### L 500.2500, L100.0100 ####[facility] [address] [place], [address] Carbon dioxide, total [Moles /volume] in Central venous bloodOrdered By: Brandon Black on 11-14-2024 CO2 [Moles/Vol] 25.6 mmol/L 21.0-32.0 [facility] Chloride assayOrdered By: Maykel Black on 11-14-2024 Chloride [Moles/Vol] 105 mmol/L 98-108 [facility] Eosinophil percentageOrdered By: Brandon Black on 11-14-2024 Eosinophils/100 WBC (Bld) 0.1 % 0-5 [facility] Erythrocyte distribution wid th ratioOrdered By: Brandon Black on 11-14-2024 Erythrocyte distribution width (RBC) [Ratio] 15.9 % High 11.6-14.6 [facility] Erythrocyte distribution wid th standard deviationOrdered By: Brandon Black on 11-14-2024 Erythrocyte distribution width (RBC) [Ratio] 52.7 fl High 35.1-43.9 [facility] Glomerular filtration rate ( GFR) estimation/1.73 sq m using serum, plasma, or whole bOrdered By: Brandon Black on 11-14-2024 GFR/1.73 sq M.predicted among non-blacks MDRD (S/P/Bld) [Vol rate/Area] 61 mL/min/{1.73_m2} >60 [facility] Hematocrit Auto (Bld) [Volum e fraction]Ordered By: Brandon Black on 11-14-2024 Hematocrit (Bld) [Volume fraction] 33.7 % Low 40-54 [facility] Hemoglobin measurementOrdere d By: Brandon Black on 11-14-2024 Hemoglobin (Bld) [Mass/Vol] 11.0 g/dL Low 13.0-16.5 [facility] Immature granulocytes/100 WB C Auto (Bld)Ordered By: Brandon Black on 11-14-2024 Immature granulocytes/100 WBC (Bld) 1.500 % High 0.0-0.9 [facility] MCV (mean corpuscular volume ) determinationOrdered By: Brandon Black on 11-14-2024 MCV (RBC) [Entitic vol] 90.8 fL 80-94 [facility] Mean corpuscular hemoglobin (MCH) determinationOrdered By: Brandon Black on 11-14-2024 MCH (RBC) [Entitic mass] 29.6 pg 27.0-32.0 [facility] Monocyte percentageOrdered B y: Brandon Black on 11-14-2024 Monocytes/100 WBC (Bld) 6.5 % 0-10 [facility] Neutrophil percentageOrdered By: Brandon Black on 11-14-2024 Neutrophils/100 WBC (Bld) 83.9 % High 47-70 [facility] Platelet countOrdered By: Maykel Black on 11-14-2024 Platelets (Bld) [#/Vol] 379 10*3/uL 150-450 [facility] Potassium measurement (mass/ volume)Ordered By: Brandon Black on 11-14-2024 Potassium (Unsp spec) [Mass/Vol] 4.3 mmol/L 3.3-5.1 [facility] RBC Auto (Bld) [#/Vol]Ordere d By: Brandon Black on 11-14-2024 RBC (Bld) [#/Vol] 3.71 10*6/uL Low 4.6-6.2 [facility] Serum creatinine measurement (mass/volume)Ordered By: Brandon Black on 11-14-2024 Creatinine [Mass/Vol] 1.16 mg/dL 0.70-1.20 [facility] Serum glucose measurement (m ass/volume)Ordered By: Brandon Black on 11-14-2024 Glucose [Mass/Vol] 131 mg/dL High 70-99 [facility] Serum or plasma calcium maritza urement (mass/volume)Ordered By: Brandon Black on 11-14-2024 Calcium [Mass/Vol] 9.1 mg/dL 7.6-11.0 [facility] Serum or plasma urea nitroge n measurement (mass/volume)Ordered By: Brandon Black on 11-14-2024 Urea nitrogen [Mass/Vol] 18 mg/dL 4-19 [facility] Sodium levelOrdered By: Brandon Wayne on 11-14-2024 Sodium [Moles/Vol] 140 mmol/L 133-145 [facility] White blood cell (WBC) count Ordered By: Brandon Wayne on 11-14-2024 WBC (Bld) [#/Vol] 11.1 10*3/uL High 4.4-11.0 [facility] CBC W/Diff, Automatedon 10-23 PATH REV Reviewed Normal [facility] Comment on above: Result Comment: SEE REPORT IN PATIENT'S EMR AMENDED REPORT 11/13/24 1608 PATH REV previously reported as: June al Performed By: #### L 100.0100, L501.5200, L500.4050 ####[facility] [address] [place], [place], [id number] Electrocardiogram reportOrde red By: Jareth Currie on 11-12-2024 EKG study [facility] Other Phone: Bedside Glucoseon 11-11-2024 FINGERSTICK GLU 120 mg/dL High 74-106 [facility] Comment on above: Result Comment: LILLIAN KUHN OF PATIENT CARE PER NURSING PROTOCOL Performed By: #### L 501.080 ####[facility] [address] [place], [place], [id number] Chest PA and Lateralon 11-11 Chest PA and Lateral Normal [facility] Glucose measurement at bedsi deOrdered By: Brandon Black on 11-11-2024 Glucose [Mass/Vol] 120 mg/dL High 74-106 [facility] 12 Lead EKGon 11-10-2024 12 Lead EKG Normal [facility] 12 Lead EKG Normal [facility] Absolute lymphocyte countOrd ered By: Sukhdev Mark on 11-10-2024 Lymphocytes Auto (Unsp spec) [#/Vol] 0.89 10*3/uL 0.83-4.51 [facility] Anion gap in Serum or Plasma Ordered By: Sukhdev Mark on 11-10-2024 Anion gap [Moles/Vol] 12 mmol/L 5-15 [facility] Automated lymphocyte count a s percentage of total leukocytesOrdered By: Sukhdevmack Mark on 11-10-2024 Lymphocytes/100 WBC Auto (Unsp spec) 5.3 % Low - [facility] BUN/creatinine ratioOrdered By: Sukhdevmack Mark on 11-10-2024 Urea nitrogen/Creatinine [Mass ratio] 9.5 mg/mg Low 12-10 [facility] Basic Metabolic Profile (BMP )on 11-10-2024 BUN/CRE 9.5 RATIO Low 12-10 [facility] Comment on above: Performed By: #### L 500.2500, L100.0100 ####[facility] [address] [place], [address] Calcium [Mass/Vol] 9.9 mg/dL Normal 7.6-11.0 [facility] Comment on above: Performed By: #### L 500.2500, L100.0100 ####[facility] [address] [place], [address] Chloride [Moles/Vol] 103 mmol/L Normal 98-108 [facility] Comment on above: Performed By: #### L 500.2500, L100.0100 ####[facility] [address] [place], [address] CO2 [Moles/Vol] 25.9 mmol/L Normal 21.0-32.0 [facility] Comment on above: Performed By: #### L 500.2500, L100.0100 ####[facility] [address] [place], [address] Creatinine [Mass/Vol] 1.29 mg/dL High 0.70-1.20 [facility] Comment on above: Performed By: #### L 500.2500, L100.0100 ####[facility] [address] [place], [address] ECRCL 47.77 ml/min Low 50-250 [facility] Comment on above: Performed By: #### L 500.2500, L100.0100 ####[facility] [address] [place], [address] GAP 12 Normal 5-15 [facility] Comment on above: Performed By: #### L 500.2500, L100.0100 ####[facility] [address] [place], [address] GFR/1.73 sq M.predicted among non-blacks MDRD (S/P/Bld) [Vol rate/Area] 53 mL/min/{1.73_m2} Low >60 [facility] Comment on above: Result Comment: mL/m in/1.73m2 CKD-EPI Creatinine Equation (2020) Performed By: #### L 500.2500, L100.0100 ####[facility] [address] [place], [address] Glucose [Mass/Vol] 104 mg/dL High 70-99 [facility] Comment on above: Performed By: #### L 500.2500, L100.0100 ####[facility] [address] [place], [address] Potassium [Moles/Vol] 4.3 mmol/L Normal 3.3-5.1 [facility] Comment on above: Performed By: #### L 500.2500, L100.0100 ####[facility] [address] [place], [address] Sodium [Moles/Vol] 141 mmol/L Normal 133-145 [facility] Comment on above: Performed By: #### L 500.2500, L100.0100 ####[facility] [address] [place], [address] Urea nitrogen [Mass/Vol] 12 mg/dL Normal 4-19 [facility] Comment on above: Performed By: #### L 500.2500, L100.0100 ####[facility] [address] [place], [address] BUN/CRE 11.5 RATIO Normal 10-20 [facility] Comment on above: Performed By: #### L 500.2500 ####[facility] [address] [place], [address] Calcium [Mass/Vol] 9.3 mg/dL Normal 7.6-11.0 [facility] Comment on above: Performed By: #### L 500.2500 ####[facility] [address] [place], [address] Chloride [Moles/Vol] 105 mmol/L Normal 98-108 [facility] Comment on above: Performed By: #### L 500.2500 ####[facility] [address] [place], [address] CO2 [Moles/Vol] 25.5 mmol/L Normal 21.0-32.0 [facility] Comment on above: Performed By: #### L 500.2500 ####[facility] [address] [place], [address] Creatinine [Mass/Vol] 1.17 mg/dL Normal 0.70-1.20 [facility] Comment on above: Performed By: #### L 500.2500 ####[facility] [address] [place], [address] ECRCL 52.48 ml/min Normal 50-250 [facility] Comment on above: Performed By: #### L 500.2500 ####[facility] [address] [place], [address] GAP 11 Normal 5-15 [facility] Comment on above: Performed By: #### L 500.2500 ####[facility] [address] [place], [address] GFR/1.73 sq M.predicted among non-blacks MDRD (S/P/Bld) [Vol rate/Area] 60 mL/min/{1.73_m2} Normal >60 [facility] Comment on above: Result Comment: mL/m in/1.73m2 CKD-EPI Creatinine Equation (2020) Performed By: #### L 500.2500 ####[facility] [address] [place], [address] Glucose [Mass/Vol] 119 mg/dL High 70-99 [facility] Comment on above: Performed By: #### L 500.2500 ####[facility] [address] [place], [address] Potassium [Moles/Vol] 3.9 mmol/L Normal 3.3-5.1 [facility] Comment on above: Performed By: #### L 500.2500 ####[facility] [address] [place], [address] Sodium [Moles/Vol] 141 mmol/L Normal 133-145 [facility] Comment on above: Performed By: #### L 500.2500 ####[facility] [address] [place], [address] Urea nitrogen [Mass/Vol] 14 mg/dL Normal 4-19 [facility] Comment on above: Performed By: #### L 500.2500 ####[facility] [address] [place], [address] Basophil percentageOrdered B y: Sukhdev Mark on 11-10-2024 Basophils/100 WBC (Bld) 0.7 % 0-1 [facility] Bedside Glucoseon 11-10-2024 FINGERSTICK GLU 91 mg/dL Normal 74-106 [facility] Comment on above: Result Comment: LILLIAN KUHN OF PATIENT CARE PER NURSING PROTOCOL Performed By: #### L 501.080 ####[facility] [address] [place], [address] CBC W/Diff, Automatedon 10-23 Absolute Lymph 0.89 X10 3/uL Normal 0.83-4.51 [facility] Comment on above: Performed By: #### L 500.2500, L100.0100 ####[facility] [address] [place], [address] Absolute Neut 14.3 X10 3/uL High 2.0-7.7 [facility] Comment on above: Performed By: #### L 500.2500, L100.0100 ####[facility] [address] [place], [address] Basophils/100 WBC (Bld) 0.7 % Normal 0-1 [facility] Comment on above: Performed By: #### L 500.2500, L100.0100 ####[facility] [address] [place], [address] Eosinophils/100 WBC (Bld) 1.4 % Normal 0-5 [facility] Comment on above: Performed By: #### L 500.2500, L100.0100 ####[facility] [address] [place], [address] Erythrocyte distribution width (RBC) [Ratio] 16.4 % High 11.6-14.6 [facility] Comment on above: Performed By: #### L 500.2500, L100.0100 ####[facility] [address] [place], [address] Hematocrit (Bld) [Volume fraction] 44.0 % Normal 40-54 [facility] Comment on above: Performed By: #### L 500.2500, L100.0100 ####[facility] [address] [place], [address] Hemoglobin (Bld) [Mass/Vol] 14.5 g/dL Normal 13.0-16.5 [facility] Comment on above: Performed By: #### L 500.2500, L100.0100 ####[facility] [address] [place], [address] IG% 1.400 High 0.0-0.9 [facility] Comment on above: Result Comment: IG% - Immature Granulocytes (promyelocytes, myelocytes andmetamyelocytes) > 1% indicates that a LEFT SHIFT is Present. Performed By: #### L 500.2500, L100.0100 ####[facility] [address] [place], [address] Lymphocytes/100 WBC (Bld) 5.3 % Low 19-41 [facility] Comment on above: Performed By: #### L 500.2500, L100.0100 ####[facility] [address] [place], [address] MCH (RBC) [Entitic mass] 29.6 pg Normal 27.0-32.0 [facility] Comment on above: Performed By: #### L 500.2500, L100.0100 ####[facility] [address] [place], [address] MCHC (RBC) [Mass/Vol] 33.0 g/dL Normal 32-36 [facility] Comment on above: Performed By: #### L 500.2500, L100.0100 ####[facility] [address] [place], [address] MCV (RBC) [Entitic vol] 89.8 fL Normal 80-94 [facility] Comment on above: Performed By: #### L 500.2500, L100.0100 ####[facility] [address] [place], [address] Monocytes/100 WBC (Bld) 5.6 % Normal 0-10 [facility] Comment on above: Performed By: #### L 500.2500, L100.0100 ####[facility] [address] [place], [address] Neutrophils/100 WBC (Bld) 85.6 % High 47-70 [facility] Comment on above: Performed By: #### L 500.2500, L100.0100 ####[facility] [address] [place], [address] Nucleated RBC (Bld) [#/Vol] 0 10*3/uL Normal 0-5 [facility] Comment on above: Performed By: #### L 500.2500, L100.0100 ####[facility] [address] [place], [address] Platelet mean volume (Bld) [Entitic vol] 10.0 fL Normal 6.2-12.0 [facility] Comment on above: Performed By: #### L 500.2500, L100.0100 ####[facility] [address] [place], [address] Platelets (Bld) [#/Vol] 403 10*3/uL Normal 150-450 [facility] Comment on above: Performed By: #### L 500.2500, L100.0100 ####[facility] [address] [place], [address] RBC (Bld) [#/Vol] 4.90 10*6/uL Normal 4.6-6.2 [facility] Comment on above: Performed By: #### L 500.2500, L100.0100 ####[facility] [address] [place], [address] RDW SD 52.0 fl High 35.1-43.9 [facility] Comment on above: Performed By: #### L 500.2500, L100.0100 ####[facility] [address] [place], [address] WBC (Bld) [#/Vol] 16.7 10*3/uL High 4.4-11.0 [facility] Comment on above: Performed By: #### L 500.2500, L100.0100 ####[facility] [address] [place], [address] Carbon dioxide, total [Moles /volume] in Central venous bloodOrdered By: Sukhdev Mark on 11-10-2024 CO2 [Moles/Vol] 25.9 mmol/L 21.0-32.0 [facility] Chloride assayOrdered By: Ug mack Mark on 11-10-2024 Chloride [Moles/Vol] 103 mmol/L 98-108 [facility] Electrocardiogram reportOrde red By: Jareth Currie on 11-10-2024 [facility] [facility] Other Phone: Emergency Department Summary on 11-10-2024 Emergency Department Summary Normal [facility] Eosinophil percentageOrdered By: Sukhdev Mark on 11-10-2024 Eosinophils/100 WBC (Bld) 1.4 % 0-5 [facility] Erythrocyte distribution wid th ratioOrdered By: Sukhdev Mark on 11-10-2024 Erythrocyte distribution width (RBC) [Ratio] 16.4 % High 11.6-14.6 [facility] Erythrocyte distribution wid th standard deviationOrdered By: Sukhdev Mark on 11-10-2024 Erythrocyte distribution width (RBC) [Ratio] 52.0 fl High 35.1-43.9 [facility] Glomerular filtration rate ( GFR) estimation/1.73 sq m using serum, plasma, or whole bOrdered By: Sukhdev Mark on 11-10-2024 GFR/1.73 sq M.predicted among non-blacks MDRD (S/P/Bld) [Vol rate/Area] 53 mL/min/{1.73_m2} Low >60 [facility] Hematocrit Auto (Bld) [Volum e fraction]Ordered By: Sukhdev Mark on 11-10-2024 Hematocrit (Bld) [Volume fraction] 44.0 % 40-54 [facility] Hemoglobin measurementOrdere d By: Sukhdev Mark on 11-10-2024 Hemoglobin (Bld) [Mass/Vol] 14.5 g/dL 13.0-16.5 [facility] Immature granulocytes/100 WB C Auto (Bld)Ordered By: Sukhdev Mark on 11-10-2024 Immature granulocytes/100 WBC (Bld) 1.400 % High 0.0-0.9 [facility] MCV (mean corpuscular volume ) determinationOrdered By: Sukhdev Mark on 11-10-2024 MCV (RBC) [Entitic vol] 89.8 fL 80-94 [facility] Mean corpuscular hemoglobin (MCH) determinationOrdered By: Sukhdev Mark on 11-10-2024 MCH (RBC) [Entitic mass] 29.6 pg 27.0-32.0 [facility] Monocyte percentageOrdered B y: Sukhdev Mark on 11-10-2024 Monocytes/100 WBC (Bld) 5.6 % 0-10 [facility] Neutrophil percentageOrdered By: Sukhdev Mark on 11-10-2024 Neutrophils/100 WBC (Bld) 85.6 % High 47-70 [facility] Platelet countOrdered By: Leatha Mark on 11-10-2024 Platelets (Bld) [#/Vol] 403 10*3/uL 150-450 [facility] Potassium measurement (mass/ volume)Ordered By: Sukhdev Mark on 11-10-2024 Potassium (Unsp spec) [Mass/Vol] 4.3 mmol/L 3.3-5.1 [facility] RBC Auto (Bld) [#/Vol]Ordere d By: Sukhdev Mark on 11-10-2024 RBC (Bld) [#/Vol] 4.90 10*6/uL 4.6-6.2 [facility] Serum creatinine measurement (mass/volume)Ordered By: Sukhdev Mark on 11-10-2024 Creatinine [Mass/Vol] 1.29 mg/dL High 0.70-1.20 [facility] Serum glucose measurement (m ass/volume)Ordered By: Sukhdev Mark on 11-10-2024 Glucose [Mass/Vol] 104 mg/dL High 70-99 [facility] Serum or plasma calcium maritza urement (mass/volume)Ordered By: [facility] on 11-10-2024 Calcium [Mass/Vol] 9.9 mg/dL 7.6-11.0 [facility] Serum or plasma urea nitroge n measurement (mass/volume)Ordered By: [facility] on 11-10-2024 Urea nitrogen [Mass/Vol] 12 mg/dL 4-19 [facility] Sodium levelOrdered By: [facility] on 11-10-2024 Sodium [Moles/Vol] 141 mmol/L 133-145 [facility] White blood cell (WBC) count Ordered By: [facility] on 11-10-2024 WBC (Bld) [#/Vol] 16.7 10*3/uL High 4.4-11.0 [facility] Basic Metabolic Profile (BMP )on 11-09-2024 BUN/CRE 10.8 RATIO Normal 10-20 [facility] Comment on above: Performed By: #### L 500.2500 ####[facility] [address] [place], [address] Calcium [Mass/Vol] 9.6 mg/dL Normal 7.6-11.0 [facility] Comment on above: Performed By: #### L 500.2500 ####[facility] [address] [place], [address] Chloride [Moles/Vol] 106 mmol/L Normal 98-108 [facility] Comment on above: Performed By: #### L 500.2500 ####[facility] [address] [place], [address] CO2 [Moles/Vol] 25.8 mmol/L Normal 21.0-32.0 [facility] Comment on above: Performed By: #### L 500.2500 ####[facility] [address] [place], [address] Creatinine [Mass/Vol] 1.28 mg/dL High 0.70-1.20 [facility] Comment on above: Performed By: #### L 500.2500 ####[facility] [address] [place], [address] ECRCL 47.97 ml/min Low 50-250 [facility] Comment on above: Performed By: #### L 500.2500 ####[facility] [address] [place], [address] GAP 12 Normal 5-15 [facility] Comment on above: Performed By: #### L 500.2500 ####[facility] [address] [place], [address] GFR/1.73 sq M.predicted among non-blacks MDRD (S/P/Bld) [Vol rate/Area] 54 mL/min/{1.73_m2} Low >60 [facility] Comment on above: Result Comment: mL/m in/1.73m2 CKD-EPI Creatinine Equation (2020) Performed By: #### L 500.2500 ####[facility] [address] [place], [address] Glucose [Mass/Vol] 111 mg/dL High 70-99 [facility] Comment on above: Performed By: #### L 500.2500 ####[facility] [address] [place], [address] Potassium [Moles/Vol] 3.7 mmol/L Normal 3.3-5.1 [facility] Comment on above: Performed By: #### L 500.2500 ####[facility] [address] [place], [address] Sodium [Moles/Vol] 143 mmol/L Normal 133-145 [facility] Comment on above: Performed By: #### L 500.2500 ####[facility] [address] [place], [place], [id number] Urea nitrogen [Mass/Vol] 14 mg/dL Normal 4-19 [facility] Comment on above: Performed By: #### L 500.2500 ####[facility] [address] [place], [place], [id number] Bedside Glucoseon 11-08-2024 FINGERSTICK GLU 100 mg/dL Normal 74-106 [facility] Comment on above: Result Comment: LILLIAN KUHN OF PATIENT CARE PER NURSING PROTOCOL Performed By: #### L 501.080 ####[facility] [address] [place], [address] Calculated very low density lipoprotein (VLDL) cholesterol measurementOrdered By: Brandon Black on 11-08-2024 Calculated very low density lipoprotein (VLDL) cholesterol measurement 17 mg/dL 5-40 [facility] LDL calc ser/plasOrdered By: Brandon Black on 11-08-2024 Cholesterol in LDL [Mass/Vol] 13 mg/dL [facility] Lipid Profileon 11-08-2024 CHOL:HDL 2.91 Normal [facility] Comment on above: Performed By: #### L 500.4100 ####[facility] [address] [place], [place], [id number] Cholesterol [Mass/Vol] 45 mg/dL Normal <=200 [facility] Comment on above: Result Comment: Chol esterol level, Desirable <200 mg/dLBorderline high cholesterol 200-239 mg/dLHigh cholesterol >=240 mg/dLRecommendations of the NCEP Adult Treatment Panel for thefollowing risk-cutoff thresholds for the [place] Americanpulation. Performed By: #### L 500.4100 ####[facility] [address] [place], [place], [id number] Cholesterol in HDL [Mass/Vol] 16 mg/dL Low [facility] Comment on above: Result Comment: Samanta onal Cholesterol Education Program (NCEP) guidelines:<40 mg/dL: Low HDL-cholesterol (major risk factor for CHD)>= 60 mg/dL: High HDL-cholesterol (negative risk factor forCHD)HDL-cholesterol is affected by a number of factors, e.g.smoking, exercise, hormones, sex and age. Performed By: #### L 500.4100 ####[facility] [address] [place], [place], [phone](778) Cholesterol in LDL [Mass/Vol] 13 mg/dL Normal [facility] Comment on above: Result Comment: Bord nrbdot=344-657 mg/dL Higher Xvno=504 mg/dL or greaterFriedwald Equation for LDL-C Performed By: #### L 500.4100 ####[facility] [address] [place], [place], [phone](402) Cholesterol in VLDL [Mass/Vol] 17 mg/dL Normal 5-40 [facility] Comment on above: Performed By: #### L 500.4100 ####[facility] [address] [place], [place], [phone](247) Triglyceride [Mass/Vol] 84 mg/dL Normal [facility] Comment on above: Result Comment: The drugs N-Acetylcysteine and Metamizole may falselydepress this assay.Normal range: <150 mg/dLBorderline High: 150-199 mg/dLHigh: 200-499 mg/dLVery High: >500 mg/dL Performed By: #### L 500.4100 ####[facility] [address] [place], [place], [phone](911) Serum or plasma cholesterol in HDL measurement (mass/volume)Ordered By: Brandon Black on 11-08-2024 Cholesterol in HDL [Mass/Vol] 16 mg/dL Low >40 [facility] Serum or plasma cholesterol measurement (mass/volume)Ordered By: Brandon Black on 11-08-2024 Cholesterol [Mass/Vol] 45 mg/dL <201 [facility] Basic Metabolic Profile (BMP )on 11-07-2024 BUN/CRE 11.8 RATIO Normal 10-20 [facility] Comment on above: Performed By: #### L 100.0100, L500.2500 ####[facility] [address] [place], [address] Calcium [Mass/Vol] 9.1 mg/dL Normal 7.6-11.0 [facility] Comment on above: Performed By: #### L 100.0100, L500.2500 ####[facility] [address] [place], [address] Chloride [Moles/Vol] 102 mmol/L Normal 98-108 [facility] Comment on above: Performed By: #### L 100.0100, L500.2500 ####[facility] [address] [place], [address] CO2 [Moles/Vol] 27.8 mmol/L Normal 21.0-32.0 [facility] Comment on above: Performed By: #### L 100.0100, L500.2500 ####[facility] [address] [place], [address] Creatinine [Mass/Vol] 1.37 mg/dL High 0.70-1.20 [facility] Comment on above: Performed By: #### L 100.0100, L500.2500 ####[facility] [address] [place], [address] ECRCL 44.82 ml/min Low 50-250 [facility] Comment on above: Performed By: #### L 100.0100, L500.2500 ####[facility] [address] [place], [address] GAP 11 Normal 5-15 [facility] Comment on above: Performed By: #### L 100.0100, L500.2500 ####[facility] [address] [place], [address] GFR/1.73 sq M.predicted among non-blacks MDRD (S/P/Bld) [Vol rate/Area] 50 mL/min/{1.73_m2} Low >60 [facility] Comment on above: Result Comment: mL/m in/1.73m2 CKD-EPI Creatinine Equation (2020) Performed By: #### L 100.0100, L500.2500 ####[facility] [address] [place], [address] Glucose [Mass/Vol] 101 mg/dL High 70-99 [facility] Comment on above: Performed By: #### L 100.0100, L500.2500 ####[facility] [address] [place], [address] Potassium [Moles/Vol] 3.1 mmol/L Low 3.3-5.1 [facility] Comment on above: Performed By: #### L 100.0100, L500.2500 ####[facility] [address] [place], [address] Sodium [Moles/Vol] 141 mmol/L Normal 133-145 [facility] Comment on above: Performed By: #### L 100.0100, L500.2500 ####[facility] [address] [place], [address] Urea nitrogen [Mass/Vol] 16 mg/dL Normal 4-19 [facility] Comment on above: Performed By: #### L 100.0100, L500.2500 ####[facility] [address] [place], [address] CBC W/Diff, Automatedon 10-22 Absolute Lymph 1.37 X10 3/uL Normal 0.83-4.51 [facility] Comment on above: Performed By: #### L 100.0100, L500.2500 ####[facility] [address] [place], [address] Absolute Neut 10.5 X10 3/uL High 2.0-7.7 [facility] Comment on above: Performed By: #### L 100.0100, L500.2500 ####[facility] [address] [place], [address] Basophils/100 WBC (Bld) 1.1 % High 0-1 [facility] Comment on above: Performed By: #### L 100.0100, L500.2500 ####[facility] [address] [place], [address] Eosinophils/100 WBC (Bld) 2.1 % Normal 0-5 [facility] Comment on above: Performed By: #### L 100.0100, L500.2500 ####[facility] [address] [place], [address] Erythrocyte distribution width (RBC) [Ratio] 15.8 % High 11.6-14.6 [facility] Comment on above: Performed By: #### L 100.0100, L500.2500 ####[facility] [address] [place], [address] Hematocrit (Bld) [Volume fraction] 39.0 % Low 40-54 [facility] Comment on above: Performed By: #### L 100.0100, L500.2500 ####[facility] [address] [place], [address] Hemoglobin (Bld) [Mass/Vol] 12.9 g/dL Low 13.0-16.5 [facility] Comment on above: Performed By: #### L 100.0100, L500.2500 ####[facility] [address] [place], [address] IG% 4.900 High 0.0-0.9 [facility] Comment on above: Result Comment: IG% - Immature Granulocytes (promyelocytes, myelocytes andmetamyelocytes) > 1% indicates that a LEFT SHIFT is Present. Performed By: #### L 100.0100, L500.2500 ####[facility] [address] [place], [address] Lymphocytes/100 WBC (Bld) 9.8 % Low 19-41 [facility] Comment on above: Performed By: #### L 100.0100, L500.2500 ####[facility] [address] [place], [address] MCH (RBC) [Entitic mass] 29.5 pg Normal 27.0-32.0 [facility] Comment on above: Performed By: #### L 100.0100, L500.2500 ####[facility] [address] [place], [address] MCHC (RBC) [Mass/Vol] 33.1 g/dL Normal 32-36 [facility] Comment on above: Performed By: #### L 100.0100, L500.2500 ####[facility] [address] [place], [address] MCV (RBC) [Entitic vol] 89.2 fL Normal 80-94 [facility] Comment on above: Performed By: #### L 100.0100, L500.2500 ####[facility] [address] [place], [address] Monocytes/100 WBC (Bld) 7.4 % Normal 0-10 [facility] Comment on above: Performed By: #### L 100.0100, L500.2500 ####[facility] [address] [place], [address] Neutrophils/100 WBC (Bld) 74.7 % High 47-70 [facility] Comment on above: Performed By: #### L 100.0100, L500.2500 ####[facility] [address] [place], [address] Nucleated RBC (Bld) [#/Vol] 0 10*3/uL Normal 0-5 [facility] Comment on above: Performed By: #### L 100.0100, L500.2500 ####[facility] [address] [place], [address] Platelet mean volume (Bld) [Entitic vol] 10.0 fL Normal 6.2-12.0 [facility] Comment on above: Performed By: #### L 100.0100, L500.2500 ####[facility] [address] [place], [address] Platelets (Bld) [#/Vol] 257 10*3/uL Normal 150-450 [facility] Comment on above: Performed By: #### L 100.0100, L500.2500 ####[facility] [address] [place], [address] RBC (Bld) [#/Vol] 4.37 10*6/uL Low 4.6-6.2 [facility] Comment on above: Performed By: #### L 100.0100, L500.2500 ####[facility] [address] [place], [address] RDW SD 49.5 fl High 35.1-43.9 [facility] Comment on above: Performed By: #### L 100.0100, L500.2500 ####[facility] [address] [place], [address] WBC (Bld) [#/Vol] 14.0 10*3/uL High 4.4-11.0 [facility] Comment on above: Performed By: #### L 100.0100, L500.2500 ####[facility] [address] [place], [address] Absolute lymphocyte countOrd ered By: Genia Scott on 11-05-2024 Lymphocytes Auto (Unsp spec) [#/Vol] 0.97 10*3/uL 0.83-4.51 [facility] Anion gap in Serum or Plasma Ordered By: Genia Scott on 11-05-2024 Anion gap [Moles/Vol] 10 mmol/L 07-05 [facility] BUN/creatinine ratioOrdered By: Genia Scott on 11-05-2024 Urea nitrogen/Creatinine [Mass ratio] 14.5 mg/mg - [facility] Basic Metabolic Profile (BMP )on 11-05-2024 BUN/CRE 14.5 RATIO Normal 12-10 [facility] Comment on above: Performed By: #### L 500.2500, L100.0100 ####[facility] [address] [place], [address] Calcium [Mass/Vol] 9.3 mg/dL Normal 7.6-11.0 [facility] Comment on above: Performed By: #### L 500.2500, L100.0100 ####[facility] [address] [place], [address] Chloride [Moles/Vol] 105 mmol/L Normal 98-108 [facility] Comment on above: Performed By: #### L 500.2500, L100.0100 ####[facility] [address] [place], [address] CO2 [Moles/Vol] 26.5 mmol/L Normal 21.0-32.0 [facility] Comment on above: Performed By: #### L 500.2500, L100.0100 ####[facility] [address] [place], [address] Creatinine [Mass/Vol] 1.52 mg/dL High 0.70-1.20 [facility] Comment on above: Performed By: #### L 500.2500, L100.0100 ####[facility] [address] [place], [address] ECRCL 40.84 ml/min Low 50-250 [facility] Comment on above: Performed By: #### L 500.2500, L100.0100 ####[facility] [address] [place], [address] GAP 10 Normal 5-15 [facility] Comment on above: Performed By: #### L 500.2500, L100.0100 ####[facility] [address] [place], [address] GFR/1.73 sq M.predicted among non-blacks MDRD (S/P/Bld) [Vol rate/Area] 44 mL/min/{1.73_m2} Low >60 [facility] Comment on above: Result Comment: mL/m in/1.73m2 CKD-EPI Creatinine Equation (2020) Performed By: #### L 500.2500, L100.0100 ####[facility] [address] [place], [address] Glucose [Mass/Vol] 93 mg/dL Normal 70-99 [facility] Comment on above: Performed By: #### L 500.2500, L100.0100 ####[facility] [address] [place], [address] Potassium [Moles/Vol] 3.4 mmol/L Normal 3.3-5.1 [facility] Comment on above: Performed By: #### L 500.2500, L100.0100 ####[facility] [address] [place], [address] Sodium [Moles/Vol] 141 mmol/L Normal 133-145 [facility] Comment on above: Performed By: #### L 500.2500, L100.0100 ####[facility] [address] [place], [address] Urea nitrogen [Mass/Vol] 22 mg/dL High 4-19 [facility] Comment on above: Performed By: #### L 500.2500, L100.0100 ####[facility] [address] [place], [address] Bedside Glucoseon 11-05-2024 FINGERSTICK GLU 87 mg/dL Normal 74-106 [facility] Comment on above: Result Comment: LILLIAN KUHN OF PATIENT CARE PER NURSING PROTOCOL Performed By: #### L 501.080 ####[facility] [address] [place], [address] Blood band neutrophil count as percentage of total leukocytesOrdered By: Genia Scott on 11-05-2024 Band form neutrophils/100 WBC (Bld) 2 % 0-5 [facility] Blood eosinophils/100 leukoc ytesOrdered By: Genia Scott on 11-05-2024 Eosinophils/100 WBC (Bld) 1 % 0-5 [facility] Blood lymphocytes/100 leukoc ytesOrdered By: Genia Scott on 11-05-2024 Lymphocytes/100 WBC (Bld) 7 % Low 19-41 [facility] Blood metamyelocytes/100 dejuan kocytesOrdered By: Genia Scott on 11-05-2024 Metamyelocytes/100 WBC (Bld) 1 % 0-1 [facility] Blood monocytes/100 leukocyt esOrdered By: Genia Scott on 11-05-2024 Monocytes/100 WBC (Bld) 2 % 0-10 [facility] Blood segmented neutrophils/ 100 leukocytesOrdered By: Genia Scott on 11-05-2024 Segmented neutrophils/100 WBC (Bld) 86 % High 47-70 [facility] CBC W/Diff, Automatedon 10-22 Absolute Lymph 0.97 X10 3/uL Normal 0.83-4.51 [facility] Comment on above: Performed By: #### L 500.2500, L100.0100 ####[facility] [address] [place], [address] Absolute Neut 12.1 X10 3/uL High 2.0-7.7 [facility] Comment on above: Performed By: #### L 500.2500, L100.0100 ####[facility] [address] [place], [address] BAND 2 Normal 0-5 [facility] Comment on above: Performed By: #### L 500.2500, L100.0100 ####[facility] [address] [place], [address] Eosinophils/100 WBC (Bld) 1 % Normal 0-5 [facility] Comment on above: Performed By: #### L 500.2500, L100.0100 ####[facility] [address] [place], [address] Lymphocytes (Bld) [#/Vol] 7 10*3/uL Low 19-41 [facility] Comment on above: Performed By: #### L 500.2500, L100.0100 ####[facility] [address] [place], [address] META 1 Normal 0-1 [facility] Comment on above: Performed By: #### L 500.2500, L100.0100 ####[facility] [address] [place], [address] Metamyelocytes/100 WBC (Bld) 1 % High 0-0 [facility] Comment on above: Performed By: #### L 500.2500, L100.0100 ####[facility] [address] [place], [address] MONOCYTE 2 Normal 0-10 [facility] Comment on above: Performed By: #### L 500.2500, L100.0100 ####[facility] [address] [place], [address] PLT EST ADEQUATE Normal ADEQ [facility] Comment on above: Performed By: #### L 500.2500, L100.0100 ####[facility] [address] [place], [address] RED CELL MORPH NORM C+C Normal NORM C C [facility] Comment on above: Performed By: #### L 500.2500, L100.0100 ####[facility] [address] [place], [address] SEGS 86 High 47-70 [facility] Comment on above: Performed By: #### L 500.2500, L100.0100 ####[facility] [address] [place], [address] TOTAL CELLS 100 Normal MANUAL DIFF [facility] Comment on above: Performed By: #### L 500.2500, L100.0100 ####[facility] [address] [place], [address] Carbon dioxide, total [Moles /volume] in Central venous bloodOrdered By: Genia Scott on 11-05-2024 CO2 [Moles/Vol] 26.5 mmol/L 21.0-32.0 [facility] Chloride assayOrdered By: Radha Scott on 11-05-2024 Chloride [Moles/Vol] 105 mmol/L 98-108 [facility] Erythrocyte distribution wid th ratioOrdered By: Genia Scott on 11-05-2024 Erythrocyte distribution width (RBC) [Ratio] 15.4 % High 11.6-14.6 [facility] Erythrocyte distribution wid th standard deviationOrdered By: Genia Scott on 11-05-2024 Erythrocyte distribution width (RBC) [Ratio] 49.2 fl High 35.1-43.9 [facility] Erythrocyte morphology asses smentOrdered By: Genia Scott on 11-05-2024 RBC morphology finding Nom (Bld) NORM C+C NORMAL NORM C&C [facility] Glomerular filtration rate ( GFR) estimation/1.73 sq m using serum, plasma, or whole bOrdered By: Genia Scott on 11-05-2024 GFR/1.73 sq M.predicted among non-blacks MDRD (S/P/Bld) [Vol rate/Area] 44 mL/min/{1.73_m2} Low >60 [facility] Glucose measurement at bedsi deOrdered By: Genia Scott on 11-05-2024 Glucose [Mass/Vol] 87 mg/dL 74-106 [facility] Hematocrit Auto (Bld) [Volum e fraction]Ordered By: Genia Scott on 11-05-2024 Hematocrit (Bld) [Volume fraction] 35.0 % Low 40-54 [facility] Hemoglobin measurementOrdere d By: Genia Scott on 11-05-2024 Hemoglobin (Bld) [Mass/Vol] 11.7 g/dL Low 13.0-16.5 [facility] MCV (mean corpuscular volume ) determinationOrdered By: Genia Scott on 11-05-2024 MCV (RBC) [Entitic vol] 88.2 fL 80-94 [facility] Mean corpuscular hemoglobin (MCH) determinationOrdered By: Genia Scott on 11-05-2024 MCH (RBC) [Entitic mass] 29.5 pg 27.0-32.0 [facility] Platelet countOrdered By: Radha Scott on 11-05-2024 Platelets (Bld) [#/Vol] 225 10*3/uL 150-450 [facility] Platelet estimateOrdered By: Genia Scott on 11-05-2024 Platelets LM Ql (Bld) ADEQUATE ADEQ [facility] Potassium measurement (mass/ volume)Ordered By: Genia Scott on 11-05-2024 Potassium (Unsp spec) [Mass/Vol] 3.4 mmol/L 3.3-5.1 [facility] RBC Auto (Bld) [#/Vol]Ordere d By: Genia Scott on 11-05-2024 RBC (Bld) [#/Vol] 3.97 10*6/uL Low 4.6-6.2 [facility] Serum creatinine measurement (mass/volume)Ordered By: Genia Scott on 11-05-2024 Creatinine [Mass/Vol] 1.52 mg/dL High 0.70-1.20 [facility] Serum glucose measurement (m ass/volume)Ordered By: Genia Scott on 11-05-2024 Glucose [Mass/Vol] 93 mg/dL 70-99 [facility] Serum or plasma calcium maritza urement (mass/volume)Ordered By: Genia Scott on 11-05-2024 Calcium [Mass/Vol] 9.3 mg/dL 7.6-11.0 [facility] Serum or plasma urea nitroge n measurement (mass/volume)Ordered By: Genia Scott on 11-05-2024 Urea nitrogen [Mass/Vol] 22 mg/dL High 4-19 [facility] Sodium levelOrdered By: America Scott on 11-05-2024 Sodium [Moles/Vol] 141 mmol/L 133-145 [facility] Total cell countOrdered By: Genia Scott on 11-05-2024 Cells counted Molgen (Bld/Tiss) [#] 100 MANUAL DIFF [facility] White blood cell (WBC) count Ordered By: Genia Scott on 11-05-2024 WBC (Bld) [#/Vol] 13.8 10*3/uL High 4.4-11.0 [facility] Bedside Glucoseon 11-04-2024 FINGERSTICK GLU 106 mg/dL Normal 74-106 [facility] Comment on above: Result Comment: LILLIAN GEMENT OF PATIENT CARE PER NURSING PROTOCOL Performed By: #### L 501.080 ####[facility] [address] [place], [address] FINGERSTICK GLU 114 mg/dL High 74-106 [facility] Comment on above: Result Comment: LILLIAN GEMENT OF PATIENT CARE PER NURSING PROTOCOL Performed By: #### L 501.080 ####[facility] [address] [place], [address] FINGERSTICK GLU 90 mg/dL Normal 74-106 [facility] Comment on above: Result Comment: LILLIAN GEMENT OF PATIENT CARE PER NURSING PROTOCOL Performed By: #### L 501.080 ####[facility] [address] [place], [address] FINGERSTICK GLU 90 mg/dL Normal 74-106 [facility] Comment on above: Result Comment: LILLIAN GEMENT OF PATIENT CARE PER NURSING PROTOCOL Performed By: #### L 501.080 ####[facility] [address] [place], [address] Bilirubin, totalOrdered By: Genia Scott on 11-04-2024 Bilirubin [Mass/Vol] 0.79 mg/dL 0.00-1.30 [facility] CBC W/Diff, Automatedon 10-22 Absolute Lymph 0.75 X10 3/uL Low 0.83-4.51 [facility] Comment on above: Performed By: #### L 100.0100, L500.4050 ####[facility] [address] [place], [address] Absolute Neut 13.0 X10 3/uL High 2.0-7.7 [facility] Comment on above: Performed By: #### L 100.0100, L500.4050 ####[facility] [address] [place], [address] Comprehensive Metabolic Prof ilon 11-04-2024 Albumin [Mass/Vol] 2.6 g/dL Low 3.4-4.8 [facility] Comment on above: Performed By: #### L 100.0100, L500.4050 ####[facility] [address] [place], [address] Albumin/Globulin [Mass ratio] 0.9 {ratio} Normal 0.9-2.4 [facility] Comment on above: Performed By: #### L 100.0100, L500.4050 ####[facility] [address] [place], [address] ALK PHOS 185 U/L High 40-129 [facility] Comment on above: Performed By: #### L 100.0100, L500.4050 ####[facility] [address] [place], [address] ALT [Catalytic activity/Vol] 49 U/L High <=46 [facility] Comment on above: Performed By: #### L 100.0100, L500.4050 ####[facility] [address] [place], [address] AST [Catalytic activity/Vol] 43 U/L High <=37 [facility] Comment on above: Performed By: #### L 100.0100, L500.4050 ####[facility] [address] [place], [address] Bilirubin [Mass/Vol] 0.79 mg/dL Normal 0.00-1.30 [facility] Comment on above: Performed By: #### L 100.0100, L500.4050 ####[facility] [address] [place], [address] BUN/CRE 15.3 RATIO Normal 10-20 [facility] Comment on above: Performed By: #### L 100.0100, L500.4050 ####[facility] [address] [place], [address] Calcium [Mass/Vol] 9.4 mg/dL Normal 7.6-11.0 [facility] Comment on above: Performed By: #### L 100.0100, L500.4050 ####[facility] [address] [place], [address] Chloride [Moles/Vol] 106 mmol/L Normal 98-108 [facility] Comment on above: Performed By: #### L 100.0100, L500.4050 ####[facility] [address] [place], [address] CO2 [Moles/Vol] 23.6 mmol/L Normal 21.0-32.0 [facility] Comment on above: Performed By: #### L 100.0100, L500.4050 ####[facility] [address] [place], [address] Creatinine [Mass/Vol] 1.41 mg/dL High 0.70-1.20 [facility] Comment on above: Performed By: #### L 100.0100, L500.4050 ####[facility] [address] [place], [address] ECRCL 44.15 ml/min Low 50-250 [facility] Comment on above: Performed By: #### L 100.0100, L500.4050 ####[facility] [address] [place], [address] GAP 12 Normal 5-15 [facility] Comment on above: Performed By: #### L 100.0100, L500.4050 ####[facility] [address] [place], [address] GFR/1.73 sq M.predicted among non-blacks MDRD (S/P/Bld) [Vol rate/Area] 48 mL/min/{1.73_m2} Low >60 [facility] Comment on above: Result Comment: mL/m in/1.73m2 CKD-EPI Creatinine Equation (2020) Performed By: #### L 100.0100, L500.4050 ####[facility] [address] [place], [address] Globulin (S) [Mass/Vol] 2.9 g/dL Normal 2.2-4.2 [facility] Comment on above: Performed By: #### L 100.0100, L500.4050 ####[facility] [address] [place], [address] Glucose [Mass/Vol] 92 mg/dL Normal 70-99 [facility] Comment on above: Performed By: #### L 100.0100, L500.4050 ####[facility] [address] [place], [address] Potassium [Moles/Vol] 3.5 mmol/L Normal 3.3-5.1 [facility] Comment on above: Performed By: #### L 100.0100, L500.4050 ####[facility] [address] [place], [address] Sodium [Moles/Vol] 141 mmol/L Normal 133-145 [facility] Comment on above: Performed By: #### L 100.0100, L500.4050 ####[facility] [address] [place], [address] T PROT 5.5 g/dL Low 5.9-8.4 [facility] Comment on above: Performed By: #### L 100.0100, L500.4050 ####[facility] [address] [place], [address] Urea nitrogen [Mass/Vol] 22 mg/dL High 4-19 [facility] Comment on above: Performed By: #### L 100.0100, L500.4050 ####[facility] [address] [place], [address] No Panel InformationOrdered By: Genia Scott on 11-04-2024 43 U/L High <38 [facility] Respiratory Cultureon 2024 RESPC List Antibiotics Las t 48 Hours? flagyl No Streptococcus pneumoniae, beta-hemolytic Streptococcus or Staphylococcus aureus isolated. Microorganism Spec Cult Yeast, not Carine albicans Amount Growth 3+ Normal [facility] Comment on above: Performed By: #### M 100.2000, M100.2400 ####[facility] [address], [address] Serum globulin measurementOr dered By: Genia Scott on 11-04-2024 Globulin (S) [Mass/Vol] 2.9 g/dL 2.2-4.2 [facility] Serum or plasma alanine lofton otransferase (ALT) measurementOrdered By: Genia Scott on 11-04-2024 ALT [Catalytic activity/Vol] 49 U/L High <47 [facility] Serum or plasma albumin maritza urement (mass/volume)Ordered By: Genia Scott on 11-04-2024 Albumin [Mass/Vol] 2.6 g/dL Low 3.4-4.8 [facility] Serum or plasma albumin/glob ulin mass ratioOrdered By: Genia Scott on 11-04-2024 Albumin/Globulin [Mass ratio] 0.9 {ratio} 0.9-2.4 [facility] Serum or plasma alkaline awa sphatase measurementOrdered By: Genia Scott on 11-04-2024 ALP [Catalytic activity/Vol] 185 U/L High 40-129 [facility] Total proteinOrdered By: Keisha Scott on 11-04-2024 Protein [Mass/Vol] 5.5 g/dL Low 5.9-8.4 [facility] Basic Metabolic Profile (BMP )on 11-03-2024 BUN/CRE 13.4 RATIO Normal 10-20 [facility] Comment on above: Performed By: #### L 501.5200, L100.0500, L501.2300, L500.2500 ####[facility] [address] [place], [address] Calcium [Mass/Vol] 9.1 mg/dL Normal 7.6-11.0 [facility] Comment on above: Performed By: #### L 501.5200, L100.0500, L501.2300, L500.2500 ####[facility] [address] [place], [address] Chloride [Moles/Vol] 108 mmol/L Normal 98-108 [facility] Comment on above: Performed By: #### L 501.5200, L100.0500, L501.2300, L500.2500 ####[facility] [address] [place], [address] CO2 [Moles/Vol] 21.7 mmol/L Normal 21.0-32.0 [facility] Comment on above: Performed By: #### L 501.5200, L100.0500, L501.2300, L500.2500 ####[facility] [address] [place], [address] Creatinine [Mass/Vol] 1.37 mg/dL High 0.70-1.20 [facility] Comment on above: Performed By: #### L 501.5200, L100.0500, L501.2300, L500.2500 ####[facility] [address] [place], [address] ECRCL 46.05 ml/min Low 50-250 [facility] Comment on above: Performed By: #### L 501.5200, L100.0500, L501.2300, L500.2500 ####[facility] [address] [place], [address] GAP 13 Normal 5-15 [facility] Comment on above: Performed By: #### L 501.5200, L100.0500, L501.2300, L500.2500 ####[facility] [address] [place], [address] GFR/1.73 sq M.predicted among non-blacks MDRD (S/P/Bld) [Vol rate/Area] 50 mL/min/{1.73_m2} Low >60 [facility] Comment on above: Result Comment: mL/m in/1.73m2 CKD-EPI Creatinine Equation (2020) Performed By: #### L 501.5200, L100.0500, L501.2300, L500.2500 ####[facility] [address] [place], [address] Glucose [Mass/Vol] 107 mg/dL High 70-99 [facility] Comment on above: Performed By: #### L 501.5200, L100.0500, L501.2300, L500.2500 ####[facility] [address] [place], [address] Potassium [Moles/Vol] 3.9 mmol/L Normal 3.3-5.1 [facility] Comment on above: Performed By: #### L 501.5200, L100.0500, L501.2300, L500.2500 ####[facility] [address] [place], [address] Sodium [Moles/Vol] 142 mmol/L Normal 133-145 [facility] Comment on above: Performed By: #### L 501.5200, L100.0500, L501.2300, L500.2500 ####[facility] [address] [place], [address] Urea nitrogen [Mass/Vol] 18 mg/dL Normal 4-19 [facility] Comment on above: Performed By: #### L 501.5200, L100.0500, L501.2300, L500.2500 ####[facility] [address] [place], [address] Bedside Glucoseon 11-03-2024 FINGERSTICK GLU 105 mg/dL Normal 74-106 [facility] Comment on above: Result Comment: LILLIAN GEMENT OF PATIENT CARE PER NURSING PROTOCOL Performed By: #### L 501.080 ####[facility] [address] [place], [address] FINGERSTICK GLU 100 mg/dL Normal 74-106 [facility] Comment on above: Result Comment: LILLIAN GEMENT OF PATIENT CARE PER NURSING PROTOCOL Performed By: #### L 501.080 ####[facility] [address] [place], [address] FINGERSTICK GLU 117 mg/dL High 74-106 [facility] Comment on above: Result Comment: LILLIAN GEMENT OF PATIENT CARE PER NURSING PROTOCOL Performed By: #### L 501.080 ####[facility] [address] [place], [address] FINGERSTICK GLU 102 mg/dL Normal 74-106 [facility] Comment on above: Result Comment: LILLIAN GEMENT OF PATIENT CARE PER NURSING PROTOCOL Performed By: #### L 501.080 ####[facility] [address] [place], [address] CBC-Complete Blood Cnt No Charline ffon 11-03-2024 Erythrocyte distribution width (RBC) [Ratio] 15.4 % High 11.6-14.6 [facility] Comment on above: Performed By: #### L 501.5200, L100.0500, L501.2300, L500.2500 ####[facility] [address] [place], [address] Hematocrit (Bld) [Volume fraction] 38.7 % Low 40-54 [facility] Comment on above: Performed By: #### L 501.5200, L100.0500, L501.2300, L500.2500 ####[facility] [address] [place], [address] Hemoglobin (Bld) [Mass/Vol] 13.0 g/dL Normal 13.0-16.5 [facility] Comment on above: Performed By: #### L 501.5200, L100.0500, L501.2300, L500.2500 ####[facility] [address] [place], [address] MCH (RBC) [Entitic mass] 29.2 pg Normal 27.0-32.0 [facility] Comment on above: Performed By: #### L 501.5200, L100.0500, L501.2300, L500.2500 ####[facility] [address] [place], [address] MCHC (RBC) [Mass/Vol] 33.6 g/dL Normal 32-36 [facility] Comment on above: Performed By: #### L 501.5200, L100.0500, L501.2300, L500.2500 ####[facility] [address] [place], [address] MCV (RBC) [Entitic vol] 87.0 fL Normal 80-94 [facility] Comment on above: Performed By: #### L 501.5200, L100.0500, L501.2300, L500.2500 ####[facility] [address] [place], [address] Platelet mean volume (Bld) [Entitic vol] 10.0 fL Normal 6.2-12.0 [facility] Comment on above: Performed By: #### L 501.5200, L100.0500, L501.2300, L500.2500 ####[facility] [address] [place], [address] Platelets (Bld) [#/Vol] 197 10*3/uL Normal 150-450 [facility] Comment on above: Performed By: #### L 501.5200, L100.0500, L501.2300, L500.2500 ####[facility] [address] [place], [address] RBC (Bld) [#/Vol] 4.45 10*6/uL Low 4.6-6.2 [facility] Comment on above: Performed By: #### L 501.5200, L100.0500, L501.2300, L500.2500 ####[facility] [address] [place], [address] RDW SD 49.1 fl High 35.1-43.9 [facility] Comment on above: Performed By: #### L 501.5200, L100.0500, L501.2300, L500.2500 ####[facility] [address] [place], [address] WBC (Bld) [#/Vol] 16.4 10*3/uL High 4.4-11.0 [facility] Comment on above: Performed By: #### L 501.5200, L100.0500, L501.2300, L500.2500 ####[facility] [address] [place], [address] Magnesiumon 11-03-2024 Magnesium [Mass/Vol] 1.7 mg/dL Normal 1.5-2.2 [facility] Comment on above: Performed By: #### L 501.5200, L100.0500, L501.2300, L500.2500 ####[facility] [address] [place], [address] Magnesium measurement (mass/ volume)Ordered By: Genia Scott on 11-03-2024 Magnesium (Unsp spec) [Mass/Vol] 1.7 mg/dL 1.5-2.2 [facility] Phosphoruson 11-03-2024 Phosphate [Mass/Vol] 3.1 mg/dL Normal 2.7-4.5 [facility] Comment on above: Performed By: #### L 501.5200, L100.0500, L501.2300, L500.2500 ####[facility] [address] [place], [address] Pro- Brain NATRIURETIC PEPTI Zach 11-03-2024 Natriuretic peptide B (Bld) [Mass/Vol] 6060 pg/mL High <=1800 [facility] Comment on above: Result Comment: Hear t Failure Unlikely: < 300 pg/mLHeart Failure Likely< 50 Years: > 450 pg/mL50-75 Years: > 900 pg/mL>75 Years: > 1800 pg/mL Performed By: #### L 503.7505 ####[facility] [address] [place], [address] Assessment of wrist artery p atency prior to arterial punctureOrdered By: Genia Scott on 11-02-2024 Arterial patency Wrist artery --pre arterial puncture Positive [facility] Bedside Glucoseon 11-02-2024 FINGERSTICK GLU 109 mg/dL High 74-106 [facility] Comment on above: Result Comment: LILLIAN WALKERENT OF PATIENT CARE PER NURSING PROTOCOL Performed By: #### L 501.080 ####[facility] [address] [place], [address] FINGERSTICK GLU 108 mg/dL High 74-106 [facility] Comment on above: Result Comment: LILLIAN GEMENT OF PATIENT CARE PER NURSING PROTOCOL Performed By: #### L 501.080 ####[facility] [address] [place], [address] FINGERSTICK GLU 121 mg/dL High 74-106 [facility] Comment on above: Result Comment: LILLIAN GEMENT OF PATIENT CARE PER NURSING PROTOCOL Performed By: #### L 501.080 ####[facility] [address] [place], [address] FINGERSTICK GLU 96 mg/dL Normal 74-106 [facility] Comment on above: Result Comment: LILLIAN GEMENT OF PATIENT CARE PER NURSING PROTOCOL Performed By: #### L 501.080 ####[facility] [address] [place], [address] Blood Gases by [facility] 025 RICHARD TEST Positive Normal [facility] Comment on above: Performed By: #### L 9000.0800 ####[facility] [address] [place], [address] Base excess Calc (Bld) [Moles/Vol] 1 mmol/L Normal -2 to +2 [facility] Comment on above: Performed By: #### L 9000.0800 ####[facility] [address] [place], [address] Blood Gas Type ART Normal [facility] Comment on above: Performed By: #### L 9000.0800 ####[facility] [address] [place], [address] CO2 [Moles/Vol] 25 mmol/L Normal [facility] Comment on above: Performed By: #### L 9000.0800 ####[facility] [address] [place], [address] FI02 40.0 Normal [facility] Comment on above: Performed By: #### L 9000.0800 ####[facility] [address] [place], [address] HCO3 (Bld) [Moles/Vol] 24.2 mmol/L Normal 22-26 [facility] Comment on above: Performed By: #### L 9000.0800 ####[facility] [address] [place], [address] Mode Not entered Normal [facility] Comment on above: Performed By: #### L 9000.0800 ####[facility] [address] [place], [address] O2 Delivery Dev BiPAP Normal [facility] Comment on above: Performed By: #### L 9000.0800 ####[facility] [address] [place], [address] pCO2 32.8 mmHg Low 35-45 [facility] Comment on above: Performed By: #### L 9000.0800 ####[facility] [address] [place], [address] PEEP 6 Normal [facility] Comment on above: Performed By: #### L 9000.0800 ####[facility] [address] [place], [address] pH (Bld) 7.48 [pH] High 7.35-7.45 [facility] Comment on above: Performed By: #### L 9000.0800 ####[facility] [address] [place], [address] PIP 12 Normal [facility] Comment on above: Performed By: #### L 9000.0800 ####[facility] [address] [place], [address] PO2 78 mmHG Normal 75-100 [facility] Comment on above: Performed By: #### L 9000.0800 ####[facility] [address] [place], [address] RR 12 Normal [facility] Comment on above: Performed By: #### L 9000.0800 ####[facility] [address] [place], [address] SITE R Radial Normal [facility] Comment on above: Performed By: #### L 9000.0800 ####[facility] [address] [place], [address] SO2 96 Normal 95-99 [facility] Comment on above: Performed By: #### L 9000.0800 ####[facility] [address] [place], [address] Blood base excess determinat ionOrdered By: Genia Scott on 11-02-2024 Base excess Calc (BldV) [Moles/Vol] 1 mmol/L -2-2 [facility] Blood bicarbonate measuremen tOrdered By: Genia Scott on 11-02-2024 HCO3 (Bld) [Moles/Vol] 24.2 mmol/L 22-26 [facility] Blood manual differential co mment interpretation (narrative result)Ordered By: Khai Bose on 11-02-2024 Manual differential comment [place] (Bld) [Interp] SCANNED [facility] Blood polychromasia detectio n by light microscopyOrdered By: Khai Bose on 11-02-2024 Polychromasia LM Ql (Bld) RARE [facility] Chest 1 View (Portable)on Chest 1 View (Portable) Normal [facility] Comprehensive Metabolic Prof ilon 11-02-2024 Albumin [Mass/Vol] 2.5 g/dL Low 3.4-4.8 [facility] Comment on above: Performed By: #### L 100.0100, L501.5200, L500.4050 ####[facility] [address] [place], [address] Albumin/Globulin [Mass ratio] 1.0 {ratio} Normal 0.9-2.4 [facility] Comment on above: Performed By: #### L 100.0100, L501.5200, L500.4050 ####[facility] [address] [place], [address] ALK PHOS 179 U/L High 40-129 [facility] Comment on above: Performed By: #### L 100.0100, L501.5200, L500.4050 ####[facility] [address] [place], [address] ALT [Catalytic activity/Vol] 79 U/L High <=46 [facility] Comment on above: Performed By: #### L 100.0100, L501.5200, L500.4050 ####[facility] [address] [place], [address] AST [Catalytic activity/Vol] 67 U/L High <=37 [facility] Comment on above: Performed By: #### L 100.0100, L501.5200, L500.4050 ####[facility] [address] [place], [address] Bilirubin [Mass/Vol] 1.01 mg/dL Normal 0.00-1.30 [facility] Comment on above: Performed By: #### L 100.0100, L501.5200, L500.4050 ####[facility] [address] [place], [address] BUN/CRE 16.3 RATIO Normal 10-20 [facility] Comment on above: Performed By: #### L 100.0100, L501.5200, L500.4050 ####[facility] [address] [place], [address] Calcium [Mass/Vol] 8.4 mg/dL Normal 7.6-11.0 [facility] Comment on above: Performed By: #### L 100.0100, L501.5200, L500.4050 ####[facility] [address] [place], [address] Chloride [Moles/Vol] 109 mmol/L High 98-108 [facility] Comment on above: Performed By: #### L 100.0100, L501.5200, L500.4050 ####[facility] [address] [place], [address] CO2 [Moles/Vol] 22.8 mmol/L Normal 21.0-32.0 [facility] Comment on above: Performed By: #### L 100.0100, L501.5200, L500.4050 ####[facility] [address] [place], [address] Creatinine [Mass/Vol] 1.04 mg/dL Normal 0.70-1.20 [facility] Comment on above: Performed By: #### L 100.0100, L501.5200, L500.4050 ####[facility] [address] [place], [address] ECRCL 59.72 ml/min Normal 50-250 [facility] Comment on above: Performed By: #### L 100.0100, L501.5200, L500.4050 ####[facility] [address] [place], [address] GAP 9 Normal 5-15 [facility] Comment on above: Performed By: #### L 100.0100, L501.5200, L500.4050 ####[facility] [address] [place], [address] GFR/1.73 sq M.predicted among non-blacks MDRD (S/P/Bld) [Vol rate/Area] 69 mL/min/{1.73_m2} Normal >60 [facility] Comment on above: Result Comment: mL/m in/1.73m2 CKD-EPI Creatinine Equation (2020) Performed By: #### L 100.0100, L501.5200, L500.4050 ####[facility] [address] [place], [address] Globulin (S) [Mass/Vol] 2.6 g/dL Normal 2.2-4.2 [facility] Comment on above: Performed By: #### L 100.0100, L501.5200, L500.4050 ####[facility] [address] [place], [address] Glucose [Mass/Vol] 136 mg/dL High 70-99 [facility] Comment on above: Performed By: #### L 100.0100, L501.5200, L500.4050 ####[facility] [address] [place], [address] Potassium [Moles/Vol] 3.7 mmol/L Normal 3.3-5.1 [facility] Comment on above: Performed By: #### L 100.0100, L501.5200, L500.4050 ####[facility] [address] [place], [address] Sodium [Moles/Vol] 141 mmol/L Normal 133-145 [facility] Comment on above: Performed By: #### L 100.0100, L501.5200, L500.4050 ####[facility] [address] [place], [address] T PROT 5.1 g/dL Low 5.9-8.4 [facility] Comment on above: Performed By: #### L 100.0100, L501.5200, L500.4050 ####[facility] [address] [place], [address] Urea nitrogen [Mass/Vol] 17 mg/dL Normal 4-19 [facility] Comment on above: Performed By: #### L 100.0100, L501.5200, L500.4050 ####[facility] [address] [place], [address] Crenated erythrocyte detecti on by light microscopyOrdered By: Khai Bose on 11-02-2024 Sophia cells LM Ql (Bld) RARE [facility] Culture, Anaerobic Any Sourc rohan 11-02-2024 CUAN Normal [facility] Comment on above: Performed By: #### M 100.4001, M100.2000, M100.2900 ####[facility] [address] [place], [address] Gram Stainon 11-02-2024 GS List Antibiotics Las t 48 Hours? flagyl Acceptable Specimen? Yes (<25 Epithelial cells per/lpf) Gram Stain 4+ Yeast Like Organisms Rare Epithelial cells No White Blood Cells Normal [facility] Comment on above: Performed By: #### M 100.2000, M100.2400 ####[facility] [address] [place], [address] Gram stainOrdered By: Fernanda Triplett on 11-02-2024 Microscopic observation Gram stain Nom (Unsp spec) [facility] Magnesiumon 11-02-2024 Magnesium [Mass/Vol] 1.4 mg/dL Low 1.5-2.2 [facility] Comment on above: Performed By: #### L 100.0100, L501.5200, L500.4050 ####[facility] [address] [place], [address] Measurement, pHOrdered By: Yane Scott on 11-02-2024 pH (Unsp spec) 7.48 [pH] High 7.35-7.45 [facility] Microbial respiratory cultur eOrdered By: Fernanda Triplett on 11-02-2024 Microorganism identified Cx Nom (Unsp spec) Yeast, not Carine albicans Abnormal [facility] Natriuretic peptide.B prohor adebayo N-Terminal [Mass/volume] in Serum or PlasmaOrdered By: Arlin Paniagua on 11-02-2024 Natriuretic peptide.B prohormone N-Terminal [Mass/Vol] 6060 pg/mL High <1800 [facility] No Panel InformationOrdered By: Genia Scott on 11-02-2024 ART [facility] R Radial [facility] Not entered [facility] BiPAP [facility] 12 [facility] 6 [facility] Ovalocyte detectionOrdered B y: Khai Bose on 11-02-2024 Ovalocytes LM Ql (Bld) RAR [facility] Phosphoruson 11-02-2024 Phosphate [Mass/Vol] 2.0 mg/dL Low 2.7-4.5 [facility] Comment on above: Performed By: #### L 501.2300 ####[facility] [address] [place], [address] Platelet morphologyOrdered B y: Khai Bose on 11-02-2024 Platelet morphology finding Nom (Bld) GIANT [facility] Review by pathologistOrdered By: Khai Bose on 11-02-2024 Pathologist review [place] (Unsp spec) [Interp] May foll [facility] Pathologist review [place] (Unsp spec) [Interp] Reviewed [facility] Smudge cell detectionOrdered By: Khai Bose on 11-02-2024 Smudge cells LM Ql (Bld) 2+ [facility] Total carbon dioxide measure mentOrdered By: Genia Scott on 11-02-2024 CO2 [Moles/Vol] 25 mmol/L [facility] Venous Duplex US - Kelley Extre mon 11-02-2024 Venous Duplex US - Kelley Extrem Normal [facility] Venous duplex ultrasound rep ortOrdered By: Ryder Leung on 11-02-2024 US Vein [facility] Other Phone: Automated lymphocyte count a s percentage of total leukocytesOrdered By: Khai Bose on 11-01-2024 Lymphocytes/100 WBC Auto (Unsp spec) 9.7 % Low 19-41 [facility] Basic Metabolic Profile (BMP )on 11-01-2024 BUN/CRE 18.4 RATIO Normal 10-20 [facility] Comment on above: Performed By: #### L 100.0100, L500.2500 ####[facility] [address] [place], [address] Calcium [Mass/Vol] 8.9 mg/dL Normal 7.6-11.0 [facility] Comment on above: Performed By: #### L 100.0100, L500.2500 ####[facility] [address] [place], [address] Chloride [Moles/Vol] 108 mmol/L Normal 98-108 [facility] Comment on above: Performed By: #### L 100.0100, L500.2500 ####[facility] [address] [place], [address] CO2 [Moles/Vol] 22.1 mmol/L Normal 21.0-32.0 [facility] Comment on above: Performed By: #### L 100.0100, L500.2500 ####[facility] [address] [place], [address] Creatinine [Mass/Vol] 1.06 mg/dL Normal 0.70-1.20 [facility] Comment on above: Performed By: #### L 100.0100, L500.2500 ####[facility] [address] [place], [address] ECRCL 58.87 ml/min Normal 50-250 [facility] Comment on above: Performed By: #### L 100.0100, L500.2500 ####[facility] [address] [place], [address] GAP 10 Normal 5-15 [facility] Comment on above: Performed By: #### L 100.0100, L500.2500 ####[facility] [address] [place], [address] GFR/1.73 sq M.predicted among non-blacks MDRD (S/P/Bld) [Vol rate/Area] 68 mL/min/{1.73_m2} Normal >60 [facility] Comment on above: Result Comment: mL/m in/1.73m2 CKD-EPI Creatinine Equation (2020) Performed By: #### L 100.0100, L500.2500 ####[facility] [address] [place], [address] Glucose [Mass/Vol] 122 mg/dL High 70-99 [facility] Comment on above: Performed By: #### L 100.0100, L500.2500 ####[facility] [address] [place], [address] Potassium [Moles/Vol] 3.7 mmol/L Normal 3.3-5.1 [facility] Comment on above: Performed By: #### L 100.0100, L500.2500 ####[facility] [address] [place], [address] Sodium [Moles/Vol] 140 mmol/L Normal 133-145 [facility] Comment on above: Performed By: #### L 100.0100, L500.2500 ####[facility] [address] [place], [address] Urea nitrogen [Mass/Vol] 20 mg/dL High 4-19 [facility] Comment on above: Performed By: #### L 100.0100, L500.2500 ####[facility] [address] [place], [address] Basophil percentageOrdered B y: Khai Bose on 11-01-2024 Basophils/100 WBC (Bld) 0.8 % 0-1 [facility] Bedside Glucoseon 11-01-2024 FINGERSTICK GLU 102 mg/dL Normal 74-106 [facility] Comment on above: Result Comment: LILLIAN KUHN OF PATIENT CARE PER NURSING PROTOCOL Performed By: #### L 501.080 ####[facility] [address] [place], [address] FINGERSTICK GLU 107 mg/dL High 74-106 [facility] Comment on above: Result Comment: LILLIAN GEMENT OF PATIENT CARE PER NURSING PROTOCOL Performed By: #### L 501.080 ####[facility] [address] [place], [address] FINGERSTICK GLU 115 mg/dL High 74-106 [facility] Comment on above: Result Comment: LILLIAN GEMENT OF PATIENT CARE PER NURSING PROTOCOL Performed By: #### L 501.080 ####[facility] [address] [place], [address] FINGERSTICK GLU 113 mg/dL High 74-106 [facility] Comment on above: Result Comment: LILLIAN GEMENT OF PATIENT CARE PER NURSING PROTOCOL Performed By: #### L 501.080 ####[facility] [address] [place], [address] Blood Gases by [facility] 025 RICHARD TEST Positive Normal [facility] Comment on above: Performed By: #### L 9000.0800 ####[facility] [address] [place], [address] Base excess Calc (Bld) [Moles/Vol] 5 mmol/L High -2 to +2 [facility] Comment on above: Performed By: #### L 9000.0800 ####[facility] [address] [place], [address] Blood Gas Type ART Normal [facility] Comment on above: Performed By: #### L 9000.0800 ####[facility] [address] [place], [address] CO2 [Moles/Vol] 30 mmol/L Normal [facility] Comment on above: Performed By: #### L 9000.0800 ####[facility] [address] [place], [address] FI02 2.0 Normal [facility] Comment on above: Performed By: #### L 8999.08 ####[facility] [address] [place], [address] HCO3 (Bld) [Moles/Vol] 28.8 mmol/L High 22-26 [facility] Comment on above: Performed By: #### L 8999.0800 ####[facility] [address] [place], [address] Mode Not entered Normal [facility] Comment on above: Performed By: #### L 8999.08 ####[facility] [address] [place], [address] O2 Delivery Dev Cannula Normal [facility] Comment on above: Performed By: #### L 8999.08 ####[facility] [address] [place], [address] pCO2 41.0 mmHg Normal 35-45 [facility] Comment on above: Performed By: #### L 8999.08 ####[facility] [address] [place], [address] pH (Bld) 7.45 [pH] Normal 7.35-7.45 [facility] Comment on above: Performed By: #### L 8999.08 ####[facility] [address] [place], [address] PO2 95 mmHG Normal 75-100 [facility] Comment on above: Performed By: #### L 8999.0800 ####[facility] [address] [place], [address] SITE L Radial Normal [facility] Comment on above: Performed By: #### L 8999.0800 ####[facility] [address] [place], [address] SO2 98 Normal 95-99 [facility] Comment on above: Performed By: #### L 9000.0800 ####[facility] [address] [place], [address] CBC W/Diff, Automatedon 10-22 Absolute Lymph 1.12 X10 3/uL Normal 0.83-4.51 [facility] Comment on above: Performed By: #### L 100.0100, L500.2500 ####[facility] [address] [place], [address] Absolute Neut 8.9 X10 3/uL High 2.0-7.7 [facility] Comment on above: Performed By: #### L 100.0100, L500.2500 ####[facility] [address] [place], [address] Basophils/100 WBC (Bld) 0.8 % Normal 0-1 [facility] Comment on above: Performed By: #### L 100.0100, L500.2500 ####[facility] [address] [place], [address] Eosinophils/100 WBC (Bld) 2.2 % Normal 0-5 [facility] Comment on above: Performed By: #### L 100.0100, L500.2500 ####[facility] [address] [place], [address] Erythrocyte distribution width (RBC) [Ratio] 15.7 % High 11.6-14.6 [facility] Comment on above: Performed By: #### L 100.0100, L500.2500 ####[facility] [address] [place], [address] Hematocrit (Bld) [Volume fraction] 37.9 % Low 40-54 [facility] Comment on above: Performed By: #### L 100.0100, L500.2500 ####[facility] [address] [place], [address] Hemoglobin (Bld) [Mass/Vol] 12.7 g/dL Low 13.0-16.5 [facility] Comment on above: Performed By: #### L 100.0100, L500.2500 ####[facility] [address] [place], [address] IG% 2.500 High 0.0-0.9 [facility] Comment on above: Result Comment: IG% - Immature Granulocytes (promyelocytes, myelocytes andmetamyelocytes) > 1% indicates that a LEFT SHIFT is Present. Performed By: #### L 100.0100, L500.2500 ####[facility] [address] [place], [address] Lymphocytes/100 WBC (Bld) 9.7 % Low 19-41 [facility] Comment on above: Performed By: #### L 100.0100, L500.2500 ####[facility] [address] [place], [address] MCH (RBC) [Entitic mass] 29.5 pg Normal 27.0-32.0 [facility] Comment on above: Performed By: #### L 100.0100, L500.2500 ####[facility] [address] [place], [address] MCHC (RBC) [Mass/Vol] 33.5 g/dL Normal 32-36 [facility] Comment on above: Performed By: #### L 100.0100, L500.2500 ####[facility] [address] [place], [address] MCV (RBC) [Entitic vol] 87.9 fL Normal 80-94 [facility] Comment on above: Performed By: #### L 100.0100, L500.2500 ####[facility] [address] [place], [address] Monocytes/100 WBC (Bld) 7.7 % Normal 0-10 [facility] Comment on above: Performed By: #### L 100.0100, L500.2500 ####[facility] [address] [place], [address] Neutrophils/100 WBC (Bld) 77.1 % High 47-70 [facility] Comment on above: Performed By: #### L 100.0100, L500.2500 ####[facility] [address] [place], [address] Nucleated RBC (Bld) [#/Vol] 0 10*3/uL Normal 0-5 [facility] Comment on above: Performed By: #### L 100.0100, L500.2500 ####[facility] [address] [place], [address] Platelet mean volume (Bld) [Entitic vol] 10.1 fL Normal 6.2-12.0 [facility] Comment on above: Performed By: #### L 100.0100, L500.2500 ####[facility] [address] [place], [address] Platelets (Bld) [#/Vol] 168 10*3/uL Normal 150-450 [facility] Comment on above: Performed By: #### L 100.0100, L500.2500 ####[facility] [address] [place], [address] RBC (Bld) [#/Vol] 4.31 10*6/uL Low 4.6-6.2 [facility] Comment on above: Performed By: #### L 100.0100, L500.2500 ####[facility] [address] [place], [address] RDW SD 50.8 fl High 35.1-43.9 [facility] Comment on above: Performed By: #### L 100.0100, L500.2500 ####[facility] [address] [place], [address] WBC (Bld) [#/Vol] 11.6 10*3/uL High 4.4-11.0 [facility] Comment on above: Performed By: #### L 100.0100, L500.2500 ####[facility] [address] [place], [address] Culture, Blood (WB)on 2024 CUB Blood cultures x2, from two different sites No growth in 5 days. Normal [facility] Comment on above: Performed By: #### M 200.1000 ####[facility] [address] [place], [address] Eosinophil percentageOrdered By: Khai Bose on 11-01-2024 Eosinophils/100 WBC (Bld) 2.2 % 0-5 [facility] Immature granulocytes/100 WB C Auto (Bld)Ordered By: Khai Bose on 11-01-2024 Immature granulocytes/100 WBC (Bld) 2.500 % High 0.0-0.9 [facility] Monocyte percentageOrdered B y: Khai Bose on 11-01-2024 Monocytes/100 WBC (Bld) 7.7 % 0-10 [facility] Bedside Glucoseon 10-31-2024 FINGERSTICK GLU 118 mg/dL High 74-106 [facility] Comment on above: Result Comment: LILLIAN GEMENT OF PATIENT CARE PER NURSING PROTOCOL Performed By: #### L 501.080 ####[facility] [address] [place], [address] FINGERSTICK GLU 126 mg/dL High 74-106 [facility] Comment on above: Result Comment: LILLIAN GEMENT OF PATIENT CARE PER NURSING PROTOCOL Performed By: #### L 501.080 ####[facility] [address] [place], [address] FINGERSTICK GLU 128 mg/dL High 74-106 [facility] Comment on above: Result Comment: LILLIAN GEMENT OF PATIENT CARE PER NURSING PROTOCOL Performed By: #### L 501.080 ####[facility] [address] [place], [address] FINGERSTICK GLU 144 mg/dL High 74-106 [facility] Comment on above: Result Comment: LILLIAN GEMENT OF PATIENT CARE PER NURSING PROTOCOL Performed By: #### L 501.080 ####[facility] [address] [place], [address] FINGERSTICK GLU 107 mg/dL High 74-106 [facility] Comment on above: Result Comment: LILLIAN GEMENT OF PATIENT CARE PER NURSING PROTOCOL Performed By: #### L 501.080 ####[facility] [address] [place], [address] Body Fluid Culton 10-31-2024 BFC Normal [facility] Comment on above: Performed By: #### M 100.4001, M100.2000, M100.2900 ####[facility] [address] [place], [address] CBC W/Diff, Automatedon 10-22 Absolute Lymph 0.73 X10 3/uL Low 0.83-4.51 [facility] Comment on above: Performed By: #### L 500.4050, L100.0100 ####[facility] [address] [place], [address] Absolute Neut 9.5 X10 3/uL High 2.0-7.7 [facility] Comment on above: Performed By: #### L 500.4050, L100.0100 ####[facility] [address] [place], [address] Basophils/100 WBC (Bld) 0.7 % Normal 0-1 [facility] Comment on above: Performed By: #### L 500.4050, L100.0100 ####[facility] [address] [place], [address] Eosinophils/100 WBC (Bld) 2.0 % Normal 0-5 [facility] Comment on above: Performed By: #### L 500.4050, L100.0100 ####[facility] [address] [place], [address] Erythrocyte distribution width (RBC) [Ratio] 15.7 % High 11.6-14.6 [facility] Comment on above: Performed By: #### L 500.4050, L100.0100 ####[facility] [address] [place], [address] Hematocrit (Bld) [Volume fraction] 36.0 % Low 40-54 [facility] Comment on above: Performed By: #### L 500.4050, L100.0100 ####[facility] [address] [place], [address] Hemoglobin (Bld) [Mass/Vol] 11.9 g/dL Low 13.0-16.5 [facility] Comment on above: Performed By: #### L 500.4050, L100.0100 ####[facility] [address] [place], [address] IG% 1.200 High 0.0-0.9 [facility] Comment on above: Result Comment: IG% - Immature Granulocytes (promyelocytes, myelocytes andmetamyelocytes) > 1% indicates that a LEFT SHIFT is Present. Performed By: #### L 500.4050, L100.0100 ####[facility] [address] [place], [address] Lymphocytes/100 WBC (Bld) 6.4 % Low 19-41 [facility] Comment on above: Performed By: #### L 500.4050, L100.0100 ####[facility] [address] [place], [address] MCH (RBC) [Entitic mass] 29.2 pg Normal 27.0-32.0 [facility] Comment on above: Performed By: #### L 500.4050, L100.0100 ####[facility] [address] [place], [address] MCHC (RBC) [Mass/Vol] 33.1 g/dL Normal 32-36 [facility] Comment on above: Performed By: #### L 500.4050, L100.0100 ####[facility] [address] [place], [address] MCV (RBC) [Entitic vol] 88.5 fL Normal 80-94 [facility] Comment on above: Performed By: #### L 500.4050, L100.0100 ####[facility] [address] [place], [address] Monocytes/100 WBC (Bld) 6.2 % Normal 0-10 [facility] Comment on above: Performed By: #### L 500.4050, L100.0100 ####[facility] [address] [place], [address] Neutrophils/100 WBC (Bld) 83.5 % High 47-70 [facility] Comment on above: Performed By: #### L 500.4050, L100.0100 ####[facility] [address] [place], [address] Nucleated RBC (Bld) [#/Vol] 0 10*3/uL Normal 0-5 [facility] Comment on above: Performed By: #### L 500.4050, L100.0100 ####[facility] [address] [place], [address] Platelet mean volume (Bld) [Entitic vol] 10.1 fL Normal 6.2-12.0 [facility] Comment on above: Performed By: #### L 500.4050, L100.0100 ####[facility] [address] [place], [address] Platelets (Bld) [#/Vol] 179 10*3/uL Normal 150-450 [facility] Comment on above: Performed By: #### L 500.4050, L100.0100 ####[facility] [address] [place], [address] RBC (Bld) [#/Vol] 4.07 10*6/uL Low 4.6-6.2 [facility] Comment on above: Performed By: #### L 500.4050, L100.0100 ####[facility] [address] [place], [address] RDW SD 51.0 fl High 35.1-43.9 [facility] Comment on above: Performed By: #### L 500.4050, L100.0100 ####[facility] [address] [place], [address] WBC (Bld) [#/Vol] 11.4 10*3/uL High 4.4-11.0 [facility] Comment on above: Performed By: #### L 500.4050, L100.0100 ####[facility] [address] [place], [address] Comprehensive Metabolic Prof [facility] 10-31-2024 Albumin [Mass/Vol] 2.7 g/dL Low 3.4-4.8 [facility] Comment on above: Performed By: #### L 500.4050, L100.0100 ####[facility] [address] [place], [address] Albumin/Globulin [Mass ratio] 1.0 {ratio} Normal 0.9-2.4 [facility] Comment on above: Performed By: #### L 500.4050, L100.0100 ####[facility] [address] [place], [address] ALK PHOS 203 U/L High 40-129 [facility] Comment on above: Performed By: #### L 500.4050, L100.0100 ####[facility] [address] [place], [address] ALT [Catalytic activity/Vol] 174 U/L High <=46 [facility] Comment on above: Performed By: #### L 500.4050, L100.0100 ####[facility] [address] [place], [address] AST [Catalytic activity/Vol] 310 U/L High <=37 [facility] Comment on above: Performed By: #### L 500.4050, L100.0100 ####[facility] [address] [place], [address] Bilirubin [Mass/Vol] 1.31 mg/dL High 0.00-1.30 [facility] Comment on above: Performed By: #### L 500.4050, L100.0100 ####[facility] [address] [place], [address] BUN/CRE 20.2 RATIO High 10-20 [facility] Comment on above: Performed By: #### L 500.4050, L100.0100 ####[facility] [address] [place], [address] Calcium [Mass/Vol] 9.1 mg/dL Normal 7.6-11.0 [facility] Comment on above: Performed By: #### L 500.4050, L100.0100 ####[facility] [address] [place], [address] Chloride [Moles/Vol] 111 mmol/L High 98-108 [facility] Comment on above: Performed By: #### L 500.4050, L100.0100 ####[facility] [address] [place], [address] CO2 [Moles/Vol] 23.3 mmol/L Normal 21.0-32.0 [facility] Comment on above: Performed By: #### L 500.4050, L100.0100 ####[facility] [address] [place], [address] Creatinine [Mass/Vol] 1.30 mg/dL High 0.70-1.20 [facility] Comment on above: Performed By: #### L 500.4050, L100.0100 ####[facility] [address] [place], [address] ECRCL 47.67 ml/min Low 50-250 [facility] Comment on above: Performed By: #### L 500.4050, L100.0100 ####[facility] [address] [place], [address] GAP 8 Normal 5-15 [facility] Comment on above: Performed By: #### L 500.4050, L100.0100 ####[facility] [address] [place], [address] GFR/1.73 sq M.predicted among non-blacks MDRD (S/P/Bld) [Vol rate/Area] 53 mL/min/{1.73_m2} Low >60 [facility] Comment on above: Result Comment: mL/m in/1.73m2 CKD-EPI Creatinine Equation (2020) Performed By: #### L 500.4050, L100.0100 ####[facility] [address] [place], [address] Globulin (S) [Mass/Vol] 2.7 g/dL Normal 2.2-4.2 [facility] Comment on above: Performed By: #### L 500.4050, L100.0100 ####[facility] [address] [place], [address] Glucose [Mass/Vol] 159 mg/dL High 70-99 [facility] Comment on above: Performed By: #### L 500.4050, L100.0100 ####[facility] [address] [place], [address] Potassium [Moles/Vol] 3.6 mmol/L Normal 3.3-5.1 [facility] Comment on above: Performed By: #### L 500.4050, L100.0100 ####[facility] [address] [place], [address] Sodium [Moles/Vol] 142 mmol/L Normal 133-145 [facility] Comment on above: Performed By: #### L 500.4050, L100.0100 ####[facility] [address] [place], [address] T PROT 5.4 g/dL Low 5.9-8.4 [facility] Comment on above: Performed By: #### L 500.4050, L100.0100 ####[facility] [address] [place], [address] Urea nitrogen [Mass/Vol] 26 mg/dL High 4-19 [facility] Comment on above: Performed By: #### L 500.4050, L100.0100 ####[facility] [address] [place], [address] Consultation - Cardiologyon 10-31-2024 Consultation - Cardiology Normal [facility] Consultation - Infectious Dx on 10-31-2024 Consultation - Infectious Dx Normal [facility] Bedside Glucoseon 10-30-2024 FINGERSTICK GLU 109 mg/dL High 74-106 [facility] Comment on above: Result Comment: LILLIAN KUHN OF PATIENT CARE PER NURSING PROTOCOL Performed By: #### L 501.080 ####[facility] [address] [place], [address] FINGERSTICK GLU 94 mg/dL Normal 74-106 [facility] Comment on above: Result Comment: Dr Mack rosa FollowedMANAGEMENT OF PATIENT CARE PER NURSING PROTOCOL Performed By: #### L 501.080 ####[facility] [address] [place], [address] FINGERSTICK GLU 92 mg/dL Normal 74-106 [facility] Comment on above: Result Comment: Dr Mack rosa FollowedMANAGEMENT OF PATIENT CARE PER NURSING PROTOCOL Performed By: #### L 501.080 ####[facility] [address] [place], [address] FINGERSTICK GLU 108 mg/dL High 74-106 [facility] Comment on above: Result Comment: LILLIAN GEMENT OF PATIENT CARE PER NURSING PROTOCOL Performed By: #### L 501.080 ####[facility] [address] [place], [address] FINGERSTICK GLU 122 mg/dL High 74-106 [facility] Comment on above: Result Comment: LILLIAN GEMENT OF PATIENT CARE PER NURSING PROTOCOL Performed By: #### L 501.080 ####[facility] [address] [place], [address] CBC W/Diff, Automatedon 09-0 9-2024 Absolute Lymph 0.66 X10 3/uL Low 0.83-4.51 [facility] Comment on above: Performed By: #### L 500.4050, L100.0100 ####[facility] [address] [place], [address] Absolute Neut 10.1 X10 3/uL High 2.0-7.7 [facility] Comment on above: Performed By: #### L 500.4050, L100.0100 ####[facility] [address] [place], [address] Basophils/100 WBC (Bld) 0.4 % Normal 0-1 [facility] Comment on above: Performed By: #### L 500.4050, L100.0100 ####[facility] [address] [place], [address] Eosinophils/100 WBC (Bld) 1.1 % Normal 0-5 [facility] Comment on above: Performed By: #### L 500.4050, L100.0100 ####[facility] [address] [place], [address] Erythrocyte distribution width (RBC) [Ratio] 15.8 % High 11.6-14.6 [facility] Comment on above: Performed By: #### L 500.4050, L100.0100 ####[facility] [address] [place], [address] Hematocrit (Bld) [Volume fraction] 37.4 % Low 40-54 [facility] Comment on above: Performed By: #### L 500.4050, L100.0100 ####[facility] [address] [place], [address] Hemoglobin (Bld) [Mass/Vol] 12.4 g/dL Low 13.0-16.5 [facility] Comment on above: Performed By: #### L 500.4050, L100.0100 ####[facility] [address] [place], [address] IG% 1.100 High 0.0-0.9 [facility] Comment on above: Result Comment: IG% - Immature Granulocytes (promyelocytes, myelocytes andmetamyelocytes) > 1% indicates that a LEFT SHIFT is Present. Performed By: #### L 500.4050, L100.0100 ####[facility] [address] [place], [address] Lymphocytes/100 WBC (Bld) 5.6 % Low 19-41 [facility] Comment on above: Performed By: #### L 500.4050, L100.0100 ####[facility] [address] [place], [address] MCH (RBC) [Entitic mass] 29.6 pg Normal 27.0-32.0 [facility] Comment on above: Performed By: #### L 500.4050, L100.0100 ####[facility] [address] [place], [address] MCHC (RBC) [Mass/Vol] 33.2 g/dL Normal 32-36 [facility] Comment on above: Performed By: #### L 500.4050, L100.0100 ####[facility] [address] [place], [address] MCV (RBC) [Entitic vol] 89.3 fL Normal 80-94 [facility] Comment on above: Performed By: #### L 500.4050, L100.0100 ####[facility] [address] [place], [address] Monocytes/100 WBC (Bld) 6.4 % Normal 0-10 [facility] Comment on above: Performed By: #### L 500.4050, L100.0100 ####[facility] [address] [place], [address] Neutrophils/100 WBC (Bld) 85.4 % High 47-70 [facility] Comment on above: Performed By: #### L 500.4050, L100.0100 ####[facility] [address] [place], [address] Nucleated RBC (Bld) [#/Vol] 0 10*3/uL Normal 0-5 [facility] Comment on above: Performed By: #### L 500.4050, L100.0100 ####[facility] [address] [place], [address] Platelet mean volume (Bld) [Entitic vol] 10.0 fL Normal 6.2-12.0 [facility] Comment on above: Performed By: #### L 500.4050, L100.0100 ####[facility] [address] [place], [address] Platelets (Bld) [#/Vol] 166 10*3/uL Normal 150-450 [facility] Comment on above: Performed By: #### L 500.4050, L100.0100 ####[facility] [address] [place], [address] RBC (Bld) [#/Vol] 4.19 10*6/uL Low 4.6-6.2 [facility] Comment on above: Performed By: #### L 500.4050, L100.0100 ####[facility] [address] [place], [address] RDW SD 51.3 fl High 35.1-43.9 [facility] Comment on above: Performed By: #### L 500.4050, L100.0100 ####[facility] [address] [place], [address] WBC (Bld) [#/Vol] 11.8 10*3/uL High 4.4-11.0 [facility] Comment on above: Performed By: #### L 500.4050, L100.0100 ####[facility] [address] [place], [address] Comprehensive Metabolic Prof [facility] 10-30-2024 Albumin [Mass/Vol] 2.9 g/dL Low 3.4-4.8 [facility] Comment on above: Performed By: #### L 500.4050, L100.0100 ####[facility] [address] [place], [address] Albumin/Globulin [Mass ratio] 1.1 {ratio} Normal 0.9-2.4 [facility] Comment on above: Performed By: #### L 500.4050, L100.0100 ####[facility] [address] [place], [address] ALK PHOS 136 U/L High 40-129 [facility] Comment on above: Performed By: #### L 500.4050, L100.0100 ####[facility] [address] [place], [address] ALT [Catalytic activity/Vol] 81 U/L High <=46 [facility] Comment on above: Performed By: #### L 500.4050, L100.0100 ####[facility] [address] [place], [address] AST [Catalytic activity/Vol] 166 U/L High <=37 [facility] Comment on above: Performed By: #### L 500.4050, L100.0100 ####[facility] [address] [place], [address] Bilirubin [Mass/Vol] 1.12 mg/dL Normal 0.00-1.30 [facility] Comment on above: Performed By: #### L 500.4050, L100.0100 ####[facility] [address] [place], [address] BUN/CRE 20.1 RATIO High 10-20 [facility] Comment on above: Performed By: #### L 500.4050, L100.0100 ####[facility] [address] [place], [address] Calcium [Mass/Vol] 9.2 mg/dL Normal 7.6-11.0 [facility] Comment on above: Performed By: #### L 500.4050, L100.0100 ####[facility] [address] [place], [address] Chloride [Moles/Vol] 111 mmol/L High 98-108 [facility] Comment on above: Performed By: #### L 500.4050, L100.0100 ####[facility] [address] [place], [address] CO2 [Moles/Vol] 22.2 mmol/L Normal 21.0-32.0 [facility] Comment on above: Performed By: #### L 500.4050, L100.0100 ####[facility] [address] [place], [address] Creatinine [Mass/Vol] 1.31 mg/dL High 0.70-1.20 [facility] Comment on above: Performed By: #### L 500.4050, L100.0100 ####[facility] [address] [place], [address] ECRCL 47.66 ml/min Low 50-250 [facility] Comment on above: Performed By: #### L 500.4050, L100.0100 ####[facility] [address] [place], [address] GAP 10 Normal 5-15 [facility] Comment on above: Performed By: #### L 500.4050, L100.0100 ####[facility] [address] [place], [address] GFR/1.73 sq M.predicted among non-blacks MDRD (S/P/Bld) [Vol rate/Area] 52 mL/min/{1.73_m2} Low >60 [facility] Comment on above: Result Comment: mL/m in/1.73m2 CKD-EPI Creatinine Equation (2020) Performed By: #### L 500.4050, L100.0100 ####[facility] [address] [place], [address] Globulin (S) [Mass/Vol] 2.6 g/dL Normal 2.2-4.2 [facility] Comment on above: Performed By: #### L 500.4050, L100.0100 ####[facility] [address] [place], [address] Glucose [Mass/Vol] 126 mg/dL High 70-99 [facility] Comment on above: Performed By: #### L 500.4050, L100.0100 ####[facility] [address] [place], [address] Potassium [Moles/Vol] 3.9 mmol/L Normal 3.3-5.1 [facility] Comment on above: Performed By: #### L 500.4050, L100.0100 ####[facility] [address] [place], [address] Sodium [Moles/Vol] 142 mmol/L Normal 133-145 [facility] Comment on above: Performed By: #### L 500.4050, L100.0100 ####[facility] [address] [place], [address] T PROT 5.5 g/dL Low 5.9-8.4 [facility] Comment on above: Performed By: #### L 500.4050, L100.0100 ####[facility] [address] [place], [address] Urea nitrogen [Mass/Vol] 26 mg/dL High 4-19 [facility] Comment on above: Performed By: #### L 500.4050, L100.0100 ####[facility] [address] [place], [address] MR/CON.PCM.MARIELon 10-30-2024 MR/CON.PCM.PA Normal [facility] Modified Barium Swallow Stud yon 10-30-2024 Modified Barium Swallow Study Normal [facility] Activated partial thrombopla stin time (aPTT) in platelet poor plasma by coagulation aOrdered By: Khai Bose on 10-29-2024 aPTT Coag (PPP) [Time] 48.5 s High 24.1-36.2 [facility] Anaerobic cultureOrdered By: Khai Bose on 10-29-2024 Bacteria identified Anaer cx Nom (Unsp spec) Anaerobic cocci Abnormal [facility] Bacteria identified Anaer cx Nom (Unsp spec) Clostridium perfringens Abnormal [facility] Basic Metabolic Profile (BMP )on 10-29-2024 BUN/CRE 20.4 RATIO High 10-20 [facility] Comment on above: Performed By: #### L 500.2500, L100.0100, L501.9985 ####[facility] [address] [place], [address] Calcium [Mass/Vol] 9.0 mg/dL Normal 7.6-11.0 [facility] Comment on above: Performed By: #### L 500.2500, L100.0100, L501.9985 ####[facility] [address] [place], [address] Chloride [Moles/Vol] 110 mmol/L High 98-108 [facility] Comment on above: Performed By: #### L 500.2500, L100.0100, L501.9985 ####[facility] [address] [place], [address] CO2 [Moles/Vol] 20.9 mmol/L Low 21.0-32.0 [facility] Comment on above: Performed By: #### L 500.2500, L100.0100, L501.9985 ####[facility] [address] [place], [address] Creatinine [Mass/Vol] 1.46 mg/dL High 0.70-1.20 [facility] Comment on above: Performed By: #### L 500.2500, L100.0100, L501.9985 ####[facility] [address] [place], [address] ECRCL 42.19 ml/min Low 50-250 [facility] Comment on above: Performed By: #### L 500.2500, L100.0100, L501.9985 ####[facility] [address] [place], [address] GAP 10 Normal 5-15 [facility] Comment on above: Performed By: #### L 500.2500, L100.0100, L501.85 ####[facility] [address] [place], [address] GFR/1.73 sq M.predicted among non-blacks MDRD (S/P/Bld) [Vol rate/Area] 46 mL/min/{1.73_m2} Low >60 [facility] Comment on above: Result Comment: mL/m in/1.73m2 CKD-EPI Creatinine Equation (2020) Performed By: #### L 500.2500, L100.0100, L501.85 ####[facility] [address] [place], [address] Glucose [Mass/Vol] 173 mg/dL High 70-99 [facility] Comment on above: Performed By: #### L 500.2500, L100.0100, L501.9985 ####[facility] [address] [place], [address] Potassium [Moles/Vol] 4.2 mmol/L Normal 3.3-5.1 [facility] Comment on above: Performed By: #### L 500.2500, L100.0100, L501.9985 ####[facility] [address] [place], [address] Sodium [Moles/Vol] 140 mmol/L Normal 133-145 [facility] Comment on above: Performed By: #### L 500.2500, L100.0100, L501.9985 ####[facility] [address] [place], [address] Urea nitrogen [Mass/Vol] 30 mg/dL High 4-19 [facility] Comment on above: Performed By: #### L 500.2500, L100.0100, L501.9985 ####[facility] [address] [place], [address] Bedside Glucoseon 10-29-2024 FINGERSTICK GLU 114 mg/dL High 74-106 [facility] Comment on above: Result Comment: LILLIAN GEMENT OF PATIENT CARE PER NURSING PROTOCOL Performed By: #### L 501.080 ####[facility] [address] [place], [address] FINGERSTICK GLU 106 mg/dL Normal 74-106 [facility] Comment on above: Result Comment: LILLIAN GEMENT OF PATIENT CARE PER NURSING PROTOCOL Performed By: #### L 501.080 ####[facility] [address] [place], [address] FINGERSTICK GLU 134 mg/dL High 74-106 [facility] Comment on above: Result Comment: LILLIAN GEMENT OF PATIENT CARE PER NURSING PROTOCOL Performed By: #### L 501.080 ####[facility] [address] [place], [address] Biopsy/Inj or Needle Placeme nton 10-29-2024 Biopsy/Inj or Needle Placement Normal [facility] Body Fluid Cell Count+Diffon 10-29-2024 PATH COMM/BF May follow Normal [facility] Comment on above: Order Comment: Comme nts: GB fluid Result Comment: Unab le to perform due to the type of fluid. [facility] wascalled and they do not perform anymore due to the bile acidbreaking down the cells. Performed By: #### L 200.0200 ####[facility] [address] [place], [address] APPEAR/BF Normal [facility] Comment on above: Order Comment: Comme nts: GB fluid Result Comment: Unab le to perform due to the type of fluid. [facility] wascalled and they do not perform anymore due to the bile acidbreaking down the cells. Performed By: #### L 200.0200 ####[facility] [address] [place], [address] BFM 2ND SPEC Normal [facility] Comment on above: Order Comment: Comme nts: GB fluid Result Comment: Unab le to perform due to the type of fluid. [facility] wascalled and they do not perform anymore due to the bile acidbreaking down the cells. Performed By: #### L 200.0200 ####[facility] [address] [place], [address] BFTC# [facility] Comment on above: Order Comment: Comme nts: GB fluid Result Comment: Unab le to perform due to the type of fluid. [facility] wascalled and they do not perform anymore due to the bile acidbreaking down the cells. Performed By: #### L 200.0200 ####[facility] [address] [place], [address] BODY FLUID QC [facility] Comment on above: Order Comment: Comme nts: GB fluid Result Comment: Unab le to perform due to the type of fluid. [facility] wascalled and they do not perform anymore due to the bile acidbreaking down the cells. Performed By: #### L 200.0200 ####[facility] [address] [place], [address] COLOR/BF [facility] Comment on above: Order Comment: Comme nts: GB fluid Result Comment: Unab le to perform due to the type of fluid. [facility] wascalled and they do not perform anymore due to the bile acidbreaking down the cells. Performed By: #### L 200.0200 ####[facility] [address] [place], [address] qBKG ANALYZ OK? Normal W/IN LIMITS [facility] Comment on above: Order Comment: Comme nts: GB fluid Result Comment: Unab le to perform due to the type of fluid. [facility] wascalled and they do not perform anymore due to the bile acidbreaking down the cells. Performed By: #### L 200.0200 ####[facility] [address] [place], [address] RBC/BF Normal [facility] Comment on above: Order Comment: Comme nts: GB fluid Result Comment: Unab le to perform due to the type of fluid. [facility] wascalled and they do not perform anymore due to the bile acidbreaking down the cells. Performed By: #### L 200.0200 ####[facility] [address] [place], [place], [phone] SOURCE/BF Normal [facility] Comment on above: Order Comment: Comme nts: GB fluid Result Comment: Unab le to perform due to the type of fluid. [facility] wascalled and they do not perform anymore due to the bile acidbreaking down the cells. Performed By: #### L 200.0200 ####[facility] [address] [place], [place], [phone] WBC/BF Normal [facility] Comment on above: Order Comment: Comme nts: GB fluid Result Comment: Unab le to perform due to the type of fluid. [facility] wascalled and they do not perform anymore due to the bile acidbreaking down the cells. Performed By: #### L 200.0200 ####[facility] [address] [place], [place], [phone] CBC W/Diff, Automatedon 09-0 ACANTHOCYTE 1+ Normal [facility] Comment on above: Performed By: #### L 500.2500, L100.0100, L501.9985 ####[facility] [address] [place], [address] Anisocytosis Ql (Bld) 1+ Normal [facility] Comment on above: Performed By: #### L 500.2500, L100.0100, L501.9985 ####[facility] [address] [place], [address] CRENATED RBC 3+ Normal [facility] Comment on above: Performed By: #### L 500.2500, L100.0100, L501.9985 ####[facility] [address] [place], [address] POLYCHROMASIA 1+ Normal [facility] Comment on above: Performed By: #### L 500.2500, L100.0100, L501.9985 ####[facility] [address] [place], [address] DOHLE BODIES 1+ Normal [facility] Comment on above: Performed By: #### L 500.2500, L100.0100, L501.9985 ####[facility] [address] [place], [address] PLT EST ADEQUATE Normal ADEQ [facility] Comment on above: Performed By: #### L 500.2500, L100.0100, L501.9985 ####[facility] [address] [place], [address] TOXIC GRAN 1+ Normal [facility] Comment on above: Performed By: #### L 500.2500, L100.0100, L501.9985 ####[facility] [address] [place], [address] Crenated erythrocyte detecti on by light microscopyOrdered By: Ko Wiggins on 10-29-2024 Beau cells LM Ql (Bld) 3+ [facility] Dohle bodies detectionOrdere d By: Ko Wiggins on 10-29-2024 Dohle body LM Ql (Bld) 1+ [facility] Electrocardiogram reportOrde red By: Cece Bella on 10-29-2024 EKG study [facility] Work Phone: [phone] Electrocardiogram reportOrde red By: Sue Anderson on 10-29-2024 EKG study [facility] Work Phone: [phone] Gram Stainon 10-29-2024 GS GB fluid, cholecystostomy tube Gram Stain 2+ Gram variable semaj 1+ Gram positive cocci 2+ White Blood Cells Normal [facility] Comment on above: Performed By: #### M 100.4001, M100.2000, M100.2900 ####[facility] [address] [place], [place], [address] Gram stainOrdered By: Rupali Bose on 10-29-2024 Microscopic observation Gram stain Nom (Unsp spec) [facility] Hemoglobin A1con 10-29-2024 HbA1c (Bld) [Mass fraction] 6.3 % High <=5.6 [facility] Comment on above: Result Comment: Norm al < 5.7 % Prediabetic 5.7 - 6.4 % Diabetic >or= 6.5 % Please note range changes. Performed By: #### L 500.2500, L100.0100, L501.9985 ####[facility] [address] [place], [place], [address] Hemoglobin A1c percentageOrd ered By: Ko Wiggins on 10-29-2024 HbA1c (Bld) [Mass fraction] 6.3 % High <5.7 [facility] No Panel InformationOrdered By: Ko Wiggins on 10-29-2024 1+ [facility] Partial Thromboplast Timeon 10-29-2024 aPTT Coag (Bld) [Time] 48.5 s High 24.1-36.2 [facility] Comment on above: Performed By: #### L 300.3900, L300.4310 ####[facility] [address] [place], [place], [address] Prothrombin Time w/INRon INR Coag (PPP) [Relative time] 1.9 {INR} Normal [facility] Comment on above: Performed By: #### L 300.3900, L300.4310 ####[facility] [address] [place], [address] PT Coag (PPP) [Time] 21.7 s High 11.7-14.9 [facility] Comment on above: Performed By: #### L 300.3900, L300.4310 ####[facility] [address] [place], [address] INR Normal [facility] Comment on above: Result Comment: DUPL ICATE ORDER Performed By: #### L 300.3900 ####[facility] [address] [place], [address] PROTIME Normal 11.7-14.9 [facility] Comment on above: Result Comment: DUPL ICATE ORDER Performed By: #### L 300.3900 ####[facility] [address] [place], [address] Prothrombin timeOrdered By: Khai Bose on 10-29-2024 PT Coag (PPP) [Time] 21.7 s High 11.7-14.9 [facility] Toxic leukocyte granulation detectionOrdered By: Ko Wiggins on 10-29-2024 Toxic granules LM Ql (Bld) 1+ [facility] 12 Lead EKGon 10-28-2024 12 Lead EKG Normal [facility] Abd Inc Decub and/or Erecton 10-28-2024 Abd Inc Decub and/or Erect Normal [facility] Bedside Glucoseon 10-28-2024 FINGERSTICK GLU 148 mg/dL High 74-106 [facility] Comment on above: Result Comment: LILLIAN KUHN OF PATIENT CARE PER NURSING PROTOCOL Performed By: #### L 501.080 ####[facility] [address] [place], [address] FINGERSTICK GLU 124 mg/dL High 74-106 [facility] Comment on above: Result Comment: LILLIAN GEMENT OF PATIENT CARE PER NURSING PROTOCOL Performed By: #### L 501.080 ####[facility] [address] [place], [address] FINGERSTICK GLU 127 mg/dL High 74-106 [facility] Comment on above: Result Comment: LILLIAN GEMENT OF PATIENT CARE PER NURSING PROTOCOL Performed By: #### L 501.080 ####[facility] [address] [place], [address] FINGERSTICK GLU 188 mg/dL High 74-106 [facility] Comment on above: Result Comment: LILLIAN GEMENT OF PATIENT CARE PER NURSING PROTOCOL Performed By: #### L 501.080 ####[facility] [address] [place], [address] Blood Gases by [facility] 025 RICHADR TEST Positive Normal [facility] Comment on above: Performed By: #### L 9000.0800 ####[facility] [address] [place], [address] Base excess Calc (Bld) [Moles/Vol] 4 mmol/L High -2 to +2 [facility] Comment on above: Performed By: #### L 9000.0800 ####[facility] [address] [place], [address] Blood Gas Type ART Normal [facility] Comment on above: Performed By: #### L 9000.0800 ####[facility] [address] [place], [address] CO2 [Moles/Vol] 30 mmol/L Normal [facility] Comment on above: Performed By: #### L 9000.0800 ####[facility] [address] [place], [address] FI02 2.0 Normal [facility] Comment on above: Performed By: #### L 9000.0800 ####[facility] [address] [place], [address] HCO3 (Bld) [Moles/Vol] 28.7 mmol/L High 22-26 [facility] Comment on above: Performed By: #### L 9000.0800 ####[facility] [address] [place], [address] Mode Not entered [facility] Comment on above: Performed By: #### L 9000.0800 ####[facility] [address] [place], [address] O2 Delivery Dev CPAP Normal [facility] Comment on above: Performed By: #### L 9000.0800 ####[facility] [address] [place], [address] pCO2 43.3 mmHg Normal 35-45 [facility] Comment on above: Performed By: #### L 9000.0800 ####[facility] [address] [place], [address] pH (Bld) 7.43 [pH] Normal 7.35-7.45 [facility] Comment on above: Performed By: #### L 9000.0800 ####[facility] [address] [place], [address] PO2 70 mmHG Low 75-100 [facility] Comment on above: Performed By: #### L 9000.0800 ####[facility] [address] [place], [address] SITE L Radial Normal [facility] Comment on above: Performed By: #### L 9000.0800 ####[facility] [address] [place], [address] SO2 94 Low 95-99 [facility] Comment on above: Performed By: #### L 9000.0800 ####[facility] [address] [place], [address] CBC W/Diff, Automatedon 09-0 SMEAR COMMENT SCANNED Normal [facility] Comment on above: Performed By: #### L 100.0100 ####[facility] [address] [place], [address] CXR for Line Placementon CXR for Line Placement Normal [facility] CXR for Line Placement Normal [facility] Comprehensive Metabolic Prof ilon 10-28-2024 Albumin [Mass/Vol] 3.5 g/dL Normal 3.4-4.8 [facility] Comment on above: Performed By: #### L 506.0400, L501.5200, L501.9520, L500.4050 ####[facility] [address] [place], [address] Albumin/Globulin [Mass ratio] 1.5 {ratio} Normal 0.9-2.4 [facility] Comment on above: Performed By: #### L 506.0400, L501.5200, L501.9520, L500.4050 ####[facility] [address] [place], [address] ALK PHOS 64 U/L Normal 40-129 [facility] Comment on above: Performed By: #### L 506.0400, L501.5200, L501.9520, L500.4050 ####[facility] [address] [place], [address] ALT [Catalytic activity/Vol] 8 U/L Normal <=46 [facility] Comment on above: Performed By: #### L 506.0400, L501.5200, L501.9520, L500.4050 ####[facility] [address] [place], [address] AST [Catalytic activity/Vol] 20 U/L Normal <=37 [facility] Comment on above: Performed By: #### L 506.0400, L501.5200, L501.9520, L500.4050 ####[facility] [address] [place], [address] Bilirubin [Mass/Vol] 1.39 mg/dL High 0.00-1.30 [facility] Comment on above: Performed By: #### L 506.0400, L501.5200, L501.9520, L500.4050 ####[facility] [address] [place], [address] BUN/CRE 17.6 RATIO Normal 10-20 [facility] Comment on above: Performed By: #### L 506.0400, L501.5200, L501.9520, L500.4050 ####[facility] [address] [place], [address] Calcium [Mass/Vol] 8.5 mg/dL Normal 7.6-11.0 [facility] Comment on above: Performed By: #### L 506.0400, L501.5200, L501.9520, L500.4050 ####[facility] [address] [place], [address] Chloride [Moles/Vol] 108 mmol/L Normal 98-108 [facility] Comment on above: Performed By: #### L 506.0400, L501.5200, L501.9520, L500.4050 ####[facility] [address] [place], [address] CO2 [Moles/Vol] 18.1 mmol/L Low 21.0-32.0 [facility] Comment on above: Performed By: #### L 506.0400, L501.5200, L501.9520, L500.4050 ####[facility] [address] [place], [address] Creatinine [Mass/Vol] 1.63 mg/dL High 0.70-1.20 [facility] Comment on above: Performed By: #### L 506.0400, L501.5200, L501.9520, L500.4050 ####[facility] [address] [place], [address] ECRCL 34.38 ml/min Low 50-250 [facility] Comment on above: Performed By: #### L 506.0400, L501.5200, L501.9520, L500.4050 ####[facility] [address] [place], [address] GAP 13 Normal 5-15 [facility] Comment on above: Performed By: #### L 506.0400, L501.5200, L501.9520, L500.4050 ####[facility] [address] [place], [address] GFR/1.73 sq M.predicted among non-blacks MDRD (S/P/Bld) [Vol rate/Area] 40 mL/min/{1.73_m2} Low >60 [facility] Comment on above: Result Comment: mL/m in/1.73m2 CKD-EPI Creatinine Equation (2020) Performed By: #### L 506.0400, L501.5200, L501.9520, L500.4050 ####[facility] [address] [place], [address] Globulin (S) [Mass/Vol] 2.3 g/dL Normal 2.2-4.2 [facility] Comment on above: Performed By: #### L 506.0400, L501.5200, L501.9520, L500.4050 ####[facility] [address] [place], [address] Glucose [Mass/Vol] 205 mg/dL High 70-99 [facility] Comment on above: Performed By: #### L 506.0400, L501.5200, L501.9520, L500.4050 ####[facility] [address] [place], [address] Potassium [Moles/Vol] 4.1 mmol/L Normal 3.3-5.1 [facility] Comment on above: Performed By: #### L 506.0400, L501.5200, L501.9520, L500.4050 ####[facility] [address] [place], [address] Sodium [Moles/Vol] 139 mmol/L Normal 133-145 [facility] Comment on above: Performed By: #### L 506.0400, L501.5200, L501.9520, L500.4050 ####[facility] [address] [place], [address] T PROT 5.8 g/dL Low 5.9-8.4 [facility] Comment on above: Performed By: #### L 506.0400, L501.5200, L501.9520, L500.4050 ####[facility] [address] [place], [address] Urea nitrogen [Mass/Vol] 29 mg/dL High 4-19 [facility] Comment on above: Performed By: #### L 506.0400, L501.5200, L501.9520, L500.4050 ####[facility] [address] [place], [address] Magnesiumon 10-28-2024 Magnesium [Mass/Vol] 1.6 mg/dL Normal 1.5-2.2 [facility] Comment on above: Performed By: #### L 506.0400, L501.5200, L501.9520, L500.4050 ####[facility] [address] [place], [place], [address] T4 Free Directon 10-28-2024 T4 FREE DIRECT 0.90 ng/dL Normal 0.76-1.46 [facility] Comment on above: Performed By: #### L 506.0400, L501.5200, L501.9520, L500.4050 ####[facility] [address] [place], [place], [address] T4 freeOrdered By: Khai Vail hand on 10-28-2024 Free T4 [Mass/Vol] 0.90 ng/dL 0.76-1.46 [facility] TSH DL <= 0.005 mIU/L QnOrde red By: Khai Bose on 10-28-2024 TSH Qn 1.440 uIU/mL 0.300-4.200 [facility] Thyroid Stim Hormone (TSH)on 10-28-2024 TSH 1.440 uIU/mL Normal 0.300-4.200 [facility] Comment on above: Performed By: #### L 506.0400, L501.5200, L501.9520, L500.4050 ####[facility] [address] [place], [place], [address] Trough vancomycin levelOrder ed By: Fernanda Triplett on 10-28-2024 Vancomycin trough [Mass/Vol] 12.2 ug/mL 5.0-15.0 [facility] Vancomycin, Trough Levelon 0 10-28-2024 VANCO, TROUGH 12.2 ug/mL Normal 5.0-15.0 [facility] Comment on above: Order Comment: Comme nts: Trough to be drawn 30 mins prior to scheduled [id number] Result Comment: Aliroi mmended goal trough ranges are generally 10-15 [...] therapy recommended for serious lifethreatening infections include:- Qgutvsypem-Pibbaziqhowz-Jolbdmgts (Ventilator/Healtcare Associated)-SepsisPLEASE CONTACT PHARMACY SERVICES (#1310) FOR INTERPRETATIONOF RESULTS. Performed By: #### L 501.8820 ####[facility] [address] [place], [address] Bedside Glucoseon 10-27-2024 FINGERSTICK GLU 111 mg/dL High 74-106 [facility] Comment on above: Result Comment: LILLIAN GEMENT OF PATIENT CARE PER NURSING PROTOCOL Performed By: #### L 501.080 ####[facility] [address] [place], [address] FINGERSTICK GLU 111 mg/dL High 74-106 [facility] Comment on above: Result Comment: LILLIAN GEMENT OF PATIENT CARE PER NURSING PROTOCOL Performed By: #### L 501.080 ####[facility] [address] [place], [address] FINGERSTICK GLU 94 mg/dL Normal 74-106 [facility] Comment on above: Result Comment: LILLIAN GEMENT OF PATIENT CARE PER NURSING PROTOCOL Performed By: #### L 501.080 ####[facility] [address] [place], [address] FINGERSTICK GLU 95 mg/dL Normal 74-106 [facility] Comment on above: Result Comment: LILLIAN GEMENT OF PATIENT CARE PER NURSING PROTOCOL Performed By: #### L 501.080 ####[facility] [address] [place], [address] CBC W/Diff, Automatedon -0 SMEAR COMMENT SCANNED Normal [facility] Comment on above: Performed By: #### L 100.0100, L500.4050 ####[facility] [address] [place], [address] Comprehensive Metabolic Prof ilon 10-27-2024 Albumin [Mass/Vol] 3.3 g/dL Low 3.4-4.8 [facility] Comment on above: Performed By: #### L 100.0100, L500.4050 ####[facility] [address] [place], [address] Albumin/Globulin [Mass ratio] 1.2 {ratio} Normal 0.9-2.4 [facility] Comment on above: Performed By: #### L 100.0100, L500.4050 ####[facility] [address] [place], [address] ALK PHOS 77 U/L Normal 40-129 [facility] Comment on above: Performed By: #### L 100.0100, L500.4050 ####[facility] [address] [place], [address] ALT [Catalytic activity/Vol] 14 U/L Normal <=46 [facility] Comment on above: Performed By: #### L 100.0100, L500.4050 ####[facility] [address] [place], [address] AST [Catalytic activity/Vol] 27 U/L Normal <=37 [facility] Comment on above: Result Comment: Hemo lysis present, Results??could be affected.?? Performed By: #### L 100.0100, L500.4050 ####[facility] [address] [place], [address] Bilirubin [Mass/Vol] 1.36 mg/dL High 0.00-1.30 [facility] Comment on above: Performed By: #### L 100.0100, L500.4050 ####[facility] [address] [place], [address] BUN/CRE 16.8 RATIO Normal 10-20 [facility] Comment on above: Performed By: #### L 100.0100, L500.4050 ####[facility] [address] [place], [address] Calcium [Mass/Vol] 8.7 mg/dL Normal 7.6-11.0 [facility] Comment on above: Performed By: #### L 100.0100, L500.4050 ####[facility] [address] [place], [address] Chloride [Moles/Vol] 110 mmol/L High 98-108 [facility] Comment on above: Performed By: #### L 100.0100, L500.4050 ####[facility] [address] [place], [address] CO2 [Moles/Vol] 18.4 mmol/L Low 21.0-32.0 [facility] Comment on above: Performed By: #### L 100.0100, L500.4050 ####[facility] [address] [place], [address] Creatinine [Mass/Vol] 1.32 mg/dL High 0.70-1.20 [facility] Comment on above: Performed By: #### L 100.0100, L500.4050 ####[facility] [address] [place], [address] ECRCL 42.46 ml/min Low 50-250 [facility] Comment on above: Performed By: #### L 100.0100, L500.4050 ####[facility] [address] [place], [address] GAP 12 Normal 5-15 [facility] Comment on above: Performed By: #### L 100.0100, L500.4050 ####[facility] [address] [place], [address] GFR/1.73 sq M.predicted among non-blacks MDRD (S/P/Bld) [Vol rate/Area] 52 mL/min/{1.73_m2} Low >60 [facility] Comment on above: Result Comment: mL/m in/1.73m2 CKD-EPI Creatinine Equation (2020) Performed By: #### L 100.0100, L500.4050 ####[facility] [address] [place], [address] Globulin (S) [Mass/Vol] 2.7 g/dL Normal 2.2-4.2 [facility] Comment on above: Performed By: #### L 100.0100, L500.4050 ####[facility] [address] [place], [address] Glucose [Mass/Vol] 96 mg/dL Normal 70-99 [facility] Comment on above: Performed By: #### L 100.0100, L500.4050 ####[facility] [address] [place], [address] Potassium [Moles/Vol] 4.2 mmol/L Normal 3.3-5.1 [facility] Comment on above: Result Comment: Hemo lysis present, Results??could be affected.?? Performed By: #### L 100.0100, L500.4050 ####[facility] [address] [place], [address] Sodium [Moles/Vol] 140 mmol/L Normal 133-145 [facility] Comment on above: Performed By: #### L 100.0100, L500.4050 ####[facility] [address] [place], [address] T PROT 6.0 g/dL Normal 5.9-8.4 [facility] Comment on above: Performed By: #### L 100.0100, L500.4050 ####[facility] [address] [place], [address] Urea nitrogen [Mass/Vol] 22 mg/dL High 4-19 [facility] Comment on above: Performed By: #### L 100.0100, L500.4050 ####[facility] [address] [place], [address] Consultation - Intensiviston 10-27-2024 Consultation - State Historical Society Director Normal [facility] Consultation - Surgicalon Consultation - Surgical Normal [facility] Echo Complete W/ Contraston 10-27-2024 Echo Complete W/ Contrast Normal [facility] Echocardiogram study reportO rdered By: Sue Anderson on 10-27-2024 Study report [facility] Work Phone: Lactic Acidon 10-27-2024 Lactate [Moles/Vol] 2.4 mmol/L Invalid Interpretation Code 0.0-2.0 [facility] Comment on above: Result Comment: Crit ical Result(s) Called at: 0346 by:??BRADLEY GUERIN. Results read back by same. Performed By: #### L 503.6005 ####[facility] [address] [place], [address] Legionella Antigen Urineon 0 10-27-2024 LEGU Normal [facility] Comment on above: Performed By: #### M 300.4500, M300.4600 ####[facility] [address] [place], [address] M100.019on 10-27-2024 M100.019 Negative Normal [facility] Comment on above: Performed By: #### M 100.019 ####[facility] [address] [place], [address] M8200.1000on 10-27-2024 M8200.1000 Normal Reference Range = Negative MRSA DNA Nose Ql ELOY+probe GeneXpert Instrument, PCR method MRSA PCR MRSA NEGATIVE Normal [facility] Comment on above: Performed By: #### M 8200.1000 ####[facility] [address] [place], [address] Magnesiumon 10-27-2024 Magnesium [Mass/Vol] 1.4 mg/dL Low 1.5-2.2 [facility] Comment on above: Order Comment: Comme nts: May add to ED labsComments: may add to ED labs Performed By: #### L 501.2300, L501.5200 ####[facility] [address] [place], [address] Nasal methicillin resistant Staphylococcus aureus (MRSA) DNA detection by PCROrdered By: Fernanda Triplett on 10-27-2024 MRSA DNA ELOY+probe Ql (Nose) [facility] Phosphoruson 10-27-2024 Phosphate [Mass/Vol] 3.2 mg/dL Normal 2.7-4.5 [facility] Comment on above: Order Comment: Comme nts: May add to ED labsComments: may add to ED labs Performed By: #### L 501.2300, L501.5200 ####[facility] [address] [place], [address] RESPIRATORY PANEL MOLECULARo n 10-27-2024 RP PANEL Normal [facility] Comment on above: Performed By: #### M 100.638 ####[facility] [address] [place], [address] Respiratory pathogens detect ion panel by molecular detection methodOrdered By: Fernanda Triplett on 10-27-2024 Respiratory pathogens DNA and RNA panel ELOY+probe (Resp) [facility] Hicn-xxz-5Lxzkyol By: Rupali Bose on 10-27-2024 SARS-CoV-2 (COVID-19) RNA ELOY+probe Ql (Unsp spec) [facility] Strep pneumoniae Antig(UR,CS F)on 10-27-2024 STPAG Normal [facility] Comment on above: Performed By: #### M 300.4500, M300.4600 ####[facility] [address] [place], [address] Urine Legionella pneumophila antigen detectionOrdered By: Fernanda Triplett on 10-27-2024 L. pneumophila Ag Ql (U) [facility] 12 Lead EKGon 10-26-2024 12 Lead EKG Normal [facility] Absolute lymphocyte countOrd ered By: Akira Blanco on 10-26-2024 Lymphocytes Auto (Unsp spec) [#/Vol] 1.66 10*3/uL 0.83-4.51 [facility] Absolute neutrophil countOrd ered By: Akira Blanco on 10-26-2024 Neutrophils (Bld) [#/Vol] 12.8 10*3/uL High 2.0-7.7 [facility] Anion gap in Serum or Plasma Ordered By: Akira Blanco on 10-26-2024 Anion gap [Moles/Vol] 15 mmol/L 5-15 [facility] Automated lymphocyte count a s percentage of total leukocytesOrdered By: Akira Blanco on 10-26-2024 Lymphocytes/100 WBC Auto (Unsp spec) 10.5 % Low 19-41 [facility] BUN/creatinine ratioOrdered By: Akira Blanco on 10-26-2024 Urea nitrogen/Creatinine [Mass ratio] 15.6 mg/mg 10-20 [facility] Basophil percentageOrdered B y: Akira Blanco on 10-26-2024 Basophils/100 WBC (Bld) 0.7 % 0-1 [facility] Bilirubin, totalOrdered By: Akira Blanco on 10-26-2024 Bilirubin [Mass/Vol] 1.11 mg/dL 0.00-1.30 [facility] Blood cultureOrdered By: Nora Blanco on 10-26-2024 Bacteria identified Cx Nom (Bld) No growth in 5 days. [facility] CBC W/Diff, Automatedon Absolute Lymph 1.66 X10 3/uL Normal 0.83-4.51 [facility] Comment on above: Performed By: #### L 500.4050, L100.0100, L501.2450 ####[facility] [address] [place], [address] Absolute Neut 12.8 X10 3/uL High 2.0-7.7 [facility] Comment on above: Performed By: #### L 500.4050, L100.0100, L501.2450 ####[facility] [address] [place], [address] Basophils/100 WBC (Bld) 0.7 % Normal 0-1 [facility] Comment on above: Performed By: #### L 500.4050, L100.0100, L501.2450 ####[facility] [address] [place], [address] Eosinophils/100 WBC (Bld) 0.4 % Normal 0-5 [facility] Comment on above: Performed By: #### L 500.4050, L100.0100, L501.2450 ####[facility] [address] [place], [address] Erythrocyte distribution width (RBC) [Ratio] 15.2 % High 11.6-14.6 [facility] Comment on above: Performed By: #### L 500.4050, L100.0100, L501.2450 ####[facility] [address] [place], [address] Hematocrit (Bld) [Volume fraction] 45.8 % Normal 40-54 [facility] Comment on above: Performed By: #### L 500.4050, L100.0100, L501.2450 ####[facility] [address] [place], [address] Hemoglobin (Bld) [Mass/Vol] 15.2 g/dL Normal 13.0-16.5 [facility] Comment on above: Performed By: #### L 500.4050, L100.0100, L501.2450 ####[facility] [address] [place], [address] IG% 1.400 High 0.0-0.9 [facility] Comment on above: Result Comment: IG% - Immature Granulocytes (promyelocytes, myelocytes andmetamyelocytes) > 1% indicates that a LEFT SHIFT is Present. Performed By: #### L 500.4050, L100.0100, L501.2450 ####[facility] [address] [place], [address] Lymphocytes/100 WBC (Bld) 10.5 % Low 19-41 [facility] Comment on above: Performed By: #### L 500.4050, L100.0100, L501.2450 ####[facility] [address] [place], [address] MCH (RBC) [Entitic mass] 29.5 pg Normal 27.0-32.0 [facility] Comment on above: Performed By: #### L 500.4050, L100.0100, L501.2450 ####[facility] [address] [place], [address] MCHC (RBC) [Mass/Vol] 33.2 g/dL Normal 32-36 [facility] Comment on above: Performed By: #### L 500.4050, L100.0100, L501.2450 ####[facility] [address] [place], [address] MCV (RBC) [Entitic vol] 88.8 fL Normal 80-94 [facility] Comment on above: Performed By: #### L 500.4050, L100.0100, L501.2450 ####[facility] [address] [place], [address] Monocytes/100 WBC (Bld) 6.0 % Normal 0-10 [facility] Comment on above: Performed By: #### L 500.4050, L100.0100, L501.2450 ####[facility] [address] [place], [address] Neutrophils/100 WBC (Bld) 81.0 % High 47-70 [facility] Comment on above: Performed By: #### L 500.4050, L100.0100, L501.2450 ####[facility] [address] [place], [address] Nucleated RBC (Bld) [#/Vol] 0 10*3/uL Normal 0-5 [facility] Comment on above: Performed By: #### L 500.4050, L100.0100, L501.2450 ####[facility] [address] [place], [address] Platelet mean volume (Bld) [Entitic vol] 10.5 fL Normal 6.2-12.0 [facility] Comment on above: Performed By: #### L 500.4050, L100.0100, L501.2450 ####[facility] [address] [place], [address] Platelets (Bld) [#/Vol] 285 10*3/uL Normal 150-450 [facility] Comment on above: Performed By: #### L 500.4050, L100.0100, L501.2450 ####[facility] [address] [place], [address] RBC (Bld) [#/Vol] 5.16 10*6/uL Normal 4.6-6.2 [facility] Comment on above: Performed By: #### L 500.4050, L100.0100, L501.2450 ####[facility] [address] [place], [address] RDW SD 49.2 fl High 35.1-43.9 [facility] Comment on above: Performed By: #### L 500.4050, L100.0100, L501.2450 ####[facility] [address] [place], [address] WBC (Bld) [#/Vol] 15.8 10*3/uL High 4.4-11.0 [facility] Comment on above: Performed By: #### L 500.4050, L100.0100, L501.2450 ####[facility] [address] [place], [address] Carbon dioxide, total [Moles /volume] in Central venous bloodOrdered By: Akira Blanco on 10-26-2024 CO2 [Moles/Vol] 23.2 mmol/L 21.0-32.0 [facility] Chest without Contraston Chest without Contrast Normal [facility] Chloride assayOrdered By: Marshall Blanco on 10-26-2024 Chloride [Moles/Vol] 102 mmol/L 98-108 [facility] Comprehensive Metabolic Prof ilon 10-26-2024 Albumin [Mass/Vol] 4.5 g/dL Normal 3.4-4.8 [facility] Comment on above: Performed By: #### L 500.4050, L100.0100, L501.2450 ####[facility] [address] [place], [address] Albumin/Globulin [Mass ratio] 1.3 {ratio} Normal 0.9-2.4 [facility] Comment on above: Performed By: #### L 500.4050, L100.0100, L501.2450 ####[facility] [address] [place], [address] ALK PHOS 120 U/L Normal 40-129 [facility] Comment on above: Performed By: #### L 500.4050, L100.0100, L501.2450 ####[facility] [address] [place], [address] ALT [Catalytic activity/Vol] 18 U/L Normal <=46 [facility] Comment on above: Performed By: #### L 500.4050, L100.0100, L501.2450 ####[facility] [address] [place], [address] AST [Catalytic activity/Vol] 34 U/L Normal <=37 [facility] Comment on above: Result Comment: Hemo lysis present, Results??could be affected.?? Performed By: #### L 500.4050, L100.0100, L501.2450 ####[facility] [address] [place], [address] Bilirubin [Mass/Vol] 1.11 mg/dL Normal 0.00-1.30 [facility] Comment on above: Performed By: #### L 500.4050, L100.0100, L501.2450 ####[facility] [address] [place], [address] BUN/CRE 15.6 RATIO Normal 10-20 [facility] Comment on above: Performed By: #### L 500.4050, L100.0100, L501.2450 ####[facility] [address] [place], [address] Calcium [Mass/Vol] 10.7 mg/dL Normal 7.6-11.0 [facility] Comment on above: Performed By: #### L 500.4050, L100.0100, L501.2450 ####[facility] [address] [place], [address] Chloride [Moles/Vol] 102 mmol/L Normal 98-108 [facility] Comment on above: Performed By: #### L 500.4050, L100.0100, L501.2450 ####[facility] [address] [place], [address] CO2 [Moles/Vol] 23.2 mmol/L Normal 21.0-32.0 [facility] Comment on above: Performed By: #### L 500.4050, L100.0100, L501.2450 ####[facility] [address] [place], [address] Creatinine [Mass/Vol] 1.27 mg/dL High 0.70-1.20 [facility] Comment on above: Performed By: #### L 500.4050, L100.0100, L501.2450 ####[facility] [address] [place], [address] ECRCL 44.13 ml/min Low 50-250 [facility] Comment on above: Performed By: #### L 500.4050, L100.0100, L501.2450 ####[facility] [address] [place], [address] GAP 15 Normal 5-15 [facility] Comment on above: Performed By: #### L 500.4050, L100.0100, L501.2450 ####[facility] [address] [place], [address] GFR/1.73 sq M.predicted among non-blacks MDRD (S/P/Bld) [Vol rate/Area] 54 mL/min/{1.73_m2} Low >60 [facility] Comment on above: Result Comment: mL/m in/1.73m2 CKD-EPI Creatinine Equation (2020) Performed By: #### L 500.4050, L100.0100, L501.2450 ####[facility] [address] [place], [address] Globulin (S) [Mass/Vol] 3.6 g/dL Normal 2.2-4.2 [facility] Comment on above: Performed By: #### L 500.4050, L100.0100, L501.2450 ####[facility] [address] [place], [address] Glucose [Mass/Vol] 144 mg/dL High 70-99 [facility] Comment on above: Performed By: #### L 500.4050, L100.0100, L501.2450 ####[facility] [address] [place], [address] Potassium [Moles/Vol] 4.1 mmol/L Normal 3.3-5.1 [facility] Comment on above: Result Comment: Hemo lysis present, Results??could be affected.?? Performed By: #### L 500.4050, L100.0100, L501.2450 ####[facility] [address] [place], [address] Sodium [Moles/Vol] 140 mmol/L Normal 133-145 [facility] Comment on above: Performed By: #### L 500.4050, L100.0100, L501.2450 ####[facility] [address] [place], [address] T PROT 8.1 g/dL Normal 5.9-8.4 [facility] Comment on above: Performed By: #### L 500.4050, L100.0100, L501.2450 ####[facility] [address] [place], [address] Urea nitrogen [Mass/Vol] 20 mg/dL High 4-19 [facility] Comment on above: Performed By: #### L 500.4050, L100.0100, L501.2450 ####[facility] [address] [place], [address] Emergency Department Summary on 10-26-2024 Emergency Department Summary Normal [facility] Eosinophil percentageOrdered By: Akira Blanco on 10-26-2024 Eosinophils/100 WBC (Bld) 0.4 % 0-5 [facility] Erythrocyte distribution wid th ratioOrdered By: Akira Blanco on 10-26-2024 Erythrocyte distribution width (RBC) [Ratio] 15.2 % High 11.6-14.6 [facility] Erythrocyte distribution wid th standard deviationOrdered By: Akira Blanco on 10-26-2024 Erythrocyte distribution width (RBC) [Ratio] 49.2 fl High 35.1-43.9 [facility] Gallbladderon 10-26-2024 Gallbladder Normal [facility] Glomerular filtration rate ( GFR) estimation/1.73 sq m using serum, plasma, or whole bOrdered By: Akira Blanco on 10-26-2024 GFR/1.73 sq M.predicted among non-blacks MDRD (S/P/Bld) [Vol rate/Area] 54 mL/min/{1.73_m2} Low >60 [facility] Comment on above: mL/min/1.73m2 CKD-EP I Creatinine Equation (2020) H AND P Exam - Hospitaliston 10-26-2024 H&P Exam - Hospitalist Normal [facility] Hematocrit Auto (Bld) [Volum e fraction]Ordered By: Akira Blanco on 10-26-2024 Hematocrit (Bld) [Volume fraction] 45.8 % 40-54 [facility] Hemoglobin measurementOrdere d By: Akira Blanco on 10-26-2024 Hemoglobin (Bld) [Mass/Vol] 15.2 g/dL 13.0-16.5 [facility] Immature granulocytes/100 WB C Auto (Bld)Ordered By: Akira Blanco on 10-26-2024 Immature granulocytes/100 WBC (Bld) 1.400 % High 0.0-0.9 [facility] Comment on above: IG% - Immature Granu locytes (promyelocytes, myelocytes and metamyelocytes) > 1% indicates that a LEFT SHIFT is Present. Laboratory - Chemistry and C hemistry - challengeOrdered By: Akira Blanco on 10-26-2024 AST [Catalytic activity/Vol] 34 U/L <38 [facility] Comment on above: Hemolysis present, R esults could be affected. Lactic Acidon 10-26-2024 Lactate [Moles/Vol] 3.2 mmol/L Invalid Interpretation Code 0.0-2.0 [facility] Comment on above: Order Comment: Y Result Comment: Crit ical Result(s) Called at: 2320 by:??BRADLEY JDUD. Results read back by same. Performed By: #### L 503.6008 ####[facility] [address] [place], [place], [address] Lactic acid measurementOrder ed By: Akira Blanco on 10-26-2024 Lactate [Moles/Vol] 3.2 mmol/L High 0.0-2.0 [facility] Comment on above: Critical Result(s) C alled at: 2320 by: BRADLEY VALERA TO LUPE JUDD. Results read back by same. Lipaseon 10-26-2024 Lipase [Catalytic activity/Vol] 15 U/L Normal 13-75 [facility] Comment on above: Result Comment: Hunter allen note:LIPASE revised reference range effective 22.New Lipase methodology. Expected to produce lower valuesthan the previous assay method.NEW Reference Range: 13 - 75 U/L Performed By: #### L 500.4050, L100.0100, L501.2450 ####[facility] [address] [place], [place], [address] Lipase measurementOrdered By : Akira Blanco on 10-26-2024 Lipase [Catalytic activity/Vol] 15 U/L 13-75 [facility] Comment on above: Please note:LIPASE r evised reference range effective 22. New Lipase methodology. Expected to produce lower values than the previous assay method. NEW Reference Range: 13 - 75 U/L MCV (mean corpuscular volume ) determinationOrdered By: Akira Blanco on 10-26-2024 MCV (RBC) [Entitic vol] 88.8 fL 80-94 [facility] Mean corpuscular hemoglobin (MCH) determinationOrdered By: Akira Blanco on 10-26-2024 MCH (RBC) [Entitic mass] 29.5 pg 27.0-32.0 [facility] Mean corpuscular hemoglobin concentration (MCHC) determinationOrdered By: Akira Blanco on 10-26-2024 MCHC (RBC) [Mass/Vol] 33.2 g/dL 32-36 [facility] Mean platelet volume determi nationOrdered By: Akira Blanco on 10-26-2024 Platelet mean volume (Bld) [Entitic vol] 10.5 fL 6.2-12.0 [facility] Monocyte percentageOrdered B y: Akira Blanco on 10-26-2024 Monocytes/100 WBC (Bld) 6.0 % 0-10 [facility] Neutrophil percentageOrdered By: Akira Blanco on 10-26-2024 Neutrophils/100 WBC (Bld) 81.0 % High 47-70 [facility] Nucleated red blood cell per centageOrdered By: Akira Blanco on 10-26-2024 Nucleated RBC/100 WBC (Bld) [Ratio] 0 % 0-5 [facility] Platelet countOrdered By: Marshall Blanco on 10-26-2024 Platelets (Bld) [#/Vol] 285 10*3/uL 150-450 [facility] Potassium measurement (mass/ volume)Ordered By: Akira Blanco on 10-26-2024 Potassium (Unsp spec) [Mass/Vol] 4.1 mmol/L 3.3-5.1 [facility] Comment on above: Hemolysis present, R esults could be affected. RBC Auto (Bld) [#/Vol]Ordere d By: Akira Blanco on 10-26-2024 RBC (Bld) [#/Vol] 5.16 10*6/uL 4.6-6.2 [facility] Serum creatinine measurement (mass/volume)Ordered By: Akira Blanco on 10-26-2024 Creatinine [Mass/Vol] 1.27 mg/dL High 0.70-1.20 [facility] Serum globulin measurementOr dered By: Akira Blanco on 10-26-2024 Globulin (S) [Mass/Vol] 3.6 g/dL 2.2-4.2 [facility] Serum glucose measurement (m ass/volume)Ordered By: Akira Blanco on 10-26-2024 Glucose [Mass/Vol] 144 mg/dL High 70-99 [facility] Serum or plasma alanine lofton otransferase (ALT) measurementOrdered By: Akira Blanco on 10-26-2024 ALT [Catalytic activity/Vol] 18 U/L <47 [facility] Serum or plasma albumin maritza urement (mass/volume)Ordered By: Akira Blanco on 10-26-2024 Albumin [Mass/Vol] 4.5 g/dL 3.4-4.8 [facility] Serum or plasma albumin/glob ulin mass ratioOrdered By: Akira Blanco on 10-26-2024 Albumin/Globulin [Mass ratio] 1.3 {ratio} 0.9-2.4 [facility] Serum or plasma alkaline awa sphatase measurementOrdered By: Akira Blanco on 10-26-2024 ALP [Catalytic activity/Vol] 120 U/L 40-129 [facility] Serum or plasma calcium maritza urement (mass/volume)Ordered By: Akira Blanco on 10-26-2024 Calcium [Mass/Vol] 10.7 mg/dL 7.6-11.0 [facility] Serum or plasma urea nitroge n measurement (mass/volume)Ordered By: Akira Blanco on 10-26-2024 Urea nitrogen [Mass/Vol] 20 mg/dL High 4-19 [facility] Sodium levelOrdered By: Akira Blanco on 10-26-2024 Sodium [Moles/Vol] 140 mmol/L 133-145 [facility] Total proteinOrdered By: Nora Blanco on 10-26-2024 Protein [Mass/Vol] 8.1 g/dL 5.9-8.4 [facility] White blood cell (WBC) count Ordered By: Akira Blanco on 10-26-2024 WBC (Bld) [#/Vol] 15.8 10*3/uL High 4.4-11.0 [facility]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 Other: See Comments Comments: sneezing,runny nose CEDAR 08/17/2010 3 - Cough Comments: also [place] with same reaction MOLD 08/17/2010 3 - Cough PREDNISONE 05/16/2024 1 - Mental Status Change Comments: Hallucinations Date Reviewed: 05/16/2024 Reviewed by: Radha Berman APRN.AUDIO VISUAL EQUIPMENT RENTAL CLERK - Fully Assessed Reason for Visit: Home [...] [J4* Pers (more content not included)... Normal [facility] CNPNon 05-17-2024 CNPN Telephone (FAMPWS) TAZ JOHNSON ([id number]) 1935 M Date Time Provider Department 05/17/24 DIPAK AGUILAR FAMPWS During your visit today, we recorded the following information about you: Kylee Fraser RN 05/17/2024 3:12 PM Signed Martina [facility] called and asked to have last OV noted faxed over. Faxed to fax # [phone]. Allergies As of Date: 05/17/2024 Noted Allergy Reaction CYPRESS 09/22/2010 14 - Other: See Comments Comments: sneezing,runny nose CEDAR 08/17/2010 3 - Cough Comments: also [place] with same reaction MOLD 08/17/2010 3 - Cough PREDNISONE 05/16/2024 1 - Mental Status Change Comments: Hallucinations Date Reviewed: 05/16/2024 Reviewed by: Radha Berman APRN.AUDIO VISUAL EQUIPMENT RENTAL CLERK - Fully Assessed Reason for Visit: Fax [...] Status:Closed by KYLEE FRASER on 05/17/24 Normal [facility] US DVT LOWER BILon US DVT LOWER [...] of the left and right lower extremities. Smoking Pipe Mounter: BLANK Transcribe Date/Time: May 17 2024 3:38P Dictated by : HENRY PEÑA MD This examination was interpreted and the report reviewed and electronically signed by: HENRY PEÑA MD on May 17 2024 3:42PM EST [id number] Normal [facility] US Lower extremity vein - bi lateralon 05-17-2024 IMPRESSION: Negative study for proximal DVT in the left and right lower extremities. Negative study for calf DVT in the left and right lower extremities. Negative study for superficial thrombophlebitis in the imaged segments of the left and right lower extremities. Smoking Pipe Mounter: BLANK Transcribe Date/Time: May 17 2024 3:38P [...] not otherwise assessed. DIVISION OF RADIOLOGY Provider, Elisa Lobo [facility] - 05/17/2024 * * *Final Report* * [...] of the left and right lower extremities. Smoking Pipe Mounter: BLANK Transcribe Date/Time: May 17 2024 3:38P Dictated by : HENRY PEÑA MD This examination was interpreted and the report reviewed and electronically signed by: HENRY PEÑA MD on May 17 2024 3:42PM EST [facility] Radiology Study observation (narrative) [facility] US Lower extremity vein - bi lateralOrdered By: Ccf Provider on 05-17-2024 [facility] CBC W Auto Differential pane l (Bld)on 05-16-2024 Basophils (Bld) [#/Vol] 0.1 10*3/uL [facility] Basophils/100 WBC (Bld) 1 % [facility] Differential cell count method Nom (Bld) Auto [facility] Eosinophils (Bld) [#/Vol] 0.35 10*3/uL [facility] Eosinophils/100 WBC (Bld) 3.4 % [facility] Erythrocyte distribution width (RBC) [Ratio] 14.7 % 11.5 - 15.0 % [facility] Hematocrit (Bld) [Volume fraction] 45.5 % 39.0 - 51.0 % [facility] Hemoglobin (Bld) [Mass/Vol] 14.9 g/dL 13.0 - 17.0 g/dL [facility] Immature granulocytes (Bld) [#/Vol] 0.11 10*3/uL High [facility] Immature granulocytes/100 WBC (Bld) 1.1 % [facility] Interpretation and review of laboratory results Abnormal [facility] Lymphocytes (Bld) [#/Vol] 2.01 10*3/uL [facility] Lymphocytes/100 WBC (Bld) 19.5 % [facility] MCH (RBC) [Entitic mass] 30 pg 26.0 - 34.0 pg [facility] MCHC (RBC) [Mass/Vol] 32.7 g/dL 30.5 - 36.0 g/dL [facility] MCV (RBC) [Entitic vol] 91.7 fL 80.0 - 100.0 fL [facility] Monocytes (Bld) [#/Vol] 1.29 10*3/uL High [facility] Monocytes/100 WBC (Bld) 12.5 % [facility] Neutrophils (Bld) [#/Vol] 6.47 10*3/uL [facility] Neutrophils/100 WBC (Bld) 62.5 % [facility] Nucleated RBC (Bld) [#/Vol] [facility] Nucleated RBC/100 WBC (Bld) [Ratio] 0 % /100 WBC [facility] Platelet mean volume (Bld) [Entitic vol] 10.5 fL 9.0 - 12.7 fL [facility] Platelets (Bld) [#/Vol] 220 10*3/uL [facility] RBC (Bld) [#/Vol] 4.96 10*6/uL 4.20 - 6.0 0 m/uL [facility] WBC (Bld) [#/Vol] 10.33 10*3/uL [facility] Basophils (Bld) [#/Vol] 0.10 10*3/uL Normal <0.11 [facility] Comment on above: Order Comment: Speci men Type: BLOOD SPECIMENOrdering Facility: [facility] Address: [address] [place] [address] Performed By: #### 5 7021-8 ####[facility] LABCLIA [id number] [place] [address] [place] Basophils/100 WBC (Bld) 1.0 % Normal [facility] Comment on above: Order Comment: Speci men Type: BLOOD SPECIMENOrdering Facility: [facility] Address: [address] [place] [address] Performed By: #### 5 7021-8 ####[facility] LABCLIA [id number] [place] [address] [place] Differential cell count method Nom (Bld) Auto Normal [facility] Comment on above: Order Comment: Speci men Type: BLOOD SPECIMENOrdering Facility: [facility] Address: [address] [place] [address] Performed By: #### 5 7021-8 ####[facility] LABCLIA [id number] [place] [address] [place] Eosinophils (Bld) [#/Vol] 0.35 10*3/uL Normal <0.46 [facility] Comment on above: Order Comment: Speci men Type: BLOOD SPECIMENOrdering Facility: [facility] Address: [address] [place] [address] Performed By: #### 5 7021-8 ####[facility] LABCLIA [id number] [place] [address] [place] Eosinophils/100 WBC (Bld) 3.4 % Normal [facility] Comment on above: Order Comment: Speci men Type: BLOOD SPECIMENOrdering Facility: [facility] Address: [address] [place] [address] Performed By: #### 5 7021-8 ####[facility] LABCLIA [id number] [place] [address] [place] Erythrocyte distribution width (RBC) [Ratio] 14.7 % Normal 11.5-15.0 [facility] Comment on above: Order Comment: Speci men Type: BLOOD SPECIMENOrdering Facility: [facility] Address: [address] [place] [address] Performed By: #### 5 7021-8 ####[facility] LABIA [id number] [place] [address] [place] Hematocrit (Bld) [Volume fraction] 45.5 % Normal 39.0-51.0 [facility] Comment on above: Order Comment: Speci men Type: BLOOD SPECIMENOrdering Facility: [facility] Address: [address] [place] [address] Performed By: #### 5 7021-8 ####[facility] LABCLIA [id number] [place] [address] [place] Hemoglobin (Bld) [Mass/Vol] 14.9 g/dL Normal 13.0-17.0 [facility] Comment on above: Order Comment: Speci men Type: BLOOD SPECIMENOrdering Facility: [facility] Address: [address] [place] [address] Performed By: #### 5 7021-8 ####[facility] LABIA [id number] [place] [address] [place] Immature granulocytes (Bld) [#/Vol] 0.11 10*3/uL High <0.10 [facility] Comment on above: Order Comment: Speci men Type: BLOOD SPECIMENOrdering Facility: [facility] Address: [address] [place] [address] Performed By: #### 5 7021-8 ####[facility] LABCLIA [id number] [place] [address] [place] Immature granulocytes/100 WBC (Bld) 1.1 % Normal [facility] Comment on above: Order Comment: Speci men Type: BLOOD SPECIMENOrdering Facility: [facility] Address: [address] [place] [address] Performed By: #### 5 7021-8 ####[facility] LABCLIA [id number] [place] [address] [place] Lymphocytes (Bld) [#/Vol] 2.01 10*3/uL Normal 1.00-4.00 [facility] Comment on above: Order Comment: Speci men Type: BLOOD SPECIMENOrdering Facility: [facility] Address: [address] [place] [address] Performed By: #### 5 7021-8 ####[facility] LABCLIA [id number] [place] [address] [place] Lymphocytes/100 WBC (Bld) 19.5 % Normal [facility] Comment on above: Order Comment: Speci men Type: BLOOD SPECIMENOrdering Facility: [facility] Address: [address] [place] [address] Performed By: #### 5 7021-8 ####[facility] LABCLIA [id number] [place] [address] [place] MCH (RBC) [Entitic mass] 30.0 pg Normal 26.0-34.0 [facility] Comment on above: Order Comment: Speci men Type: BLOOD SPECIMENOrdering Facility: [facility] Address: [address] [place], [place] [address] Performed By: #### 5 7021-8 ####[facility] LABCLIA [id number] [place] [address] [place] MCHC (RBC) [Mass/Vol] 32.7 g/dL Normal 30.5-36.0 [facility] Comment on above: Order Comment: Speci men Type: BLOOD SPECIMENOrdering Facility: [facility] Address: [address] [place] [address] Performed By: #### 5 7021-8 ####[facility] LABCLIA [id number] [place] [address] [place] MCV (RBC) [Entitic vol] 91.7 fL Normal 80.0-100.0 [facility] Comment on above: Order Comment: Speci men Type: BLOOD SPECIMENOrdering Facility: [facility] Address: [address] [place] [address] Performed By: #### 5 7021-8 ####[facility] LABCLIA [id number] [place] [address] [place] Monocytes (Bld) [#/Vol] 1.29 10*3/uL High <0.87 [facility] Comment on above: Order Comment: Speci men Type: BLOOD SPECIMENOrdering Facility: [facility] Address: [address] [place] [address] Performed By: #### 5 7021-8 ####[facility] LABCLIA [id number] [place] [address] [place] Monocytes/100 WBC (Bld) 12.5 % Normal [facility] Comment on above: Order Comment: Speci men Type: BLOOD SPECIMENOrdering Facility: [facility] Address: [address] [place] [address] Performed By: #### 5 7021-8 ####[facility] LABCLIA [id number] [place] [id number] [place] Neutrophils (Bld) [#/Vol] 6.47 10*3/uL Normal 1.45-7.50 [facility] Comment on above: Order Comment: Speci men Type: BLOOD SPECIMENOrdering Facility: [facility] Address: [address] [place] [address] Performed By: #### 5 7021-8 ####[facility] LABCLIA [id number] [place] [address] [place] Neutrophils/100 WBC (Bld) 62.5 % Normal [facility] Comment on above: Order Comment: Speci men Type: BLOOD SPECIMENOrdering Facility: [facility] Address: [address] [place] [address] Performed By: #### 5 7021-8 ####[facility] LABCLIA [id number] [place] [address] [place] Nucleated RBC (Bld) [#/Vol] 10*3/uL Normal <0.01 [facility] Comment on above: Order Comment: Speci men Type: BLOOD SPECIMENOrdering Facility: [facility] Address: [address] [place] [address] Performed By: #### 5 7021-8 ####[facility] LABCLIA [id number] [place] [address] [place] Nucleated RBC/100 WBC (Bld) [Ratio] 0.0 /100 WBC Normal [facility] Comment on above: Order Comment: Speci men Type: BLOOD SPECIMENOrdering Facility: [facility] Address: [address] [place] [address] Performed By: #### 5 7021-8 ####[facility] LABCLIA [id number] [place] [address] [place] Platelet mean volume (Bld) [Entitic vol] 10.5 fL Normal 9.0-12.7 [facility] Comment on above: Order Comment: Speci men Type: BLOOD SPECIMENOrdering Facility: [facility] Address: [address] [place] [address] Performed By: #### 5 7021-8 ####[facility] LABIA [id number] [place] [address] [place] Platelets (Bld) [#/Vol] 220 10*3/uL Normal 150-400 [facility] Comment on above: Order Comment: Speci men Type: BLOOD SPECIMENOrdering Facility: [facility] Address: [address] [place] [address] Performed By: #### 5 7021-8 ####[facility] [id number] [place] [address] [place] RBC (Bld) [#/Vol] 4.96 10*6/uL Normal 4.20-6.00 [facility] Comment on above: Order Comment: Speci men Type: BLOOD SPECIMENOrdering Facility: [facility] Address: [address] [place] [address] Performed By: #### 5 7021-8 ####[facility] [id number] [place] [address] [place] WBC (Bld) [#/Vol] 10.33 10*3/uL Normal 3.70-11.00 [facility] Comment on above: Order Comment: Speci men Type: BLOOD SPECIMENOrdering Facility: [facility] Address: [address] [place] [address] Performed By: #### 5 7021-8 ####[facility] [id number] [place] [id number] [facility] CNOVon 05-16-2024 CNOV Office Visit (FAMPWS ) TAZ JOHNSON ([id number]) 1935 M Date Time Provider Department 05/16/24 1:00 PM RADHA BERMAN During your visit today, we recorded the following information about you: Pulse Respiration Blood pressure Weight 87/minute 16/minute 130/68 96.3 kg Radha Berman, REACHER.AUDIO VISUAL EQUIPMENT RENTAL CLERK 05/16/2024 6:48 PM Signed Chief Complaint Patient presents with: needs referral for pt and ot and uology referral HPI Taz Johnson is a 89 year old male who presents here today for Above Complaints. Taz is an established patient of Dr. Jeff DO. Pt was admitted to [facility] in [place] on 04/13 and 04/15. 04/13-- dx with [...] facility on 05/11 and drove back to [place] with and daughter. Hx of CVA in December. Never followed up with neurology d/t going to [place] for the winter months just after this. [...] Family reports legs elevated entire drive from [place] Denies any SOB. Pt is on eliquis since stroke. Needs assistance at home. Currently lives at home back in [place] with . Daughter lives nearby to help. Does not want to move into assistive living or assisted. Daughter agrees if they can get PT, OT, home health aide, and alf to come to home, he should be [...] on any diuretic. Traveled by car from [place] to [place] yesterday. 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 Followed by [facility]. Previous Surgical History PAST SURGICAL HISTORY [...] WHEN PFRM (more content not included)... Normal [facility] Comprehensive metabolic 2000 panelon 05-16-2024 Albumin [Mass/Vol] 3.8 g/dL Low 3.9-4.9 [facility] Comment on above: Order Comment: Speci men Type: BLOOD SPECIMENOrdering Facility: [facility] Address: [address] [place] [address] Performed By: #### 3 016-3, 33184-8, 61249-3, 69610-0 ####[facility] LABCLIA [id number] [place] [address] [place] ALP [Catalytic activity/Vol] 126 U/L High 38-113 [facility] Comment on above: Order Comment: Speci men Type: BLOOD SPECIMENOrdering Facility: [facility] Address: [address] [place] [address] Performed By: #### 3 016-3, 80765-9, 10366-5, 71909-6 ####[facility] LABCLIA [id number] [place] [id number] [place] ALT [Catalytic activity/Vol] 16 U/L Normal 10-54 [facility] Comment on above: Order Comment: Speci men Type: BLOOD SPECIMENOrdering Facility: [facility] Address: [address] [place] [address] Performed By: #### 3 016-3, 28761-1, 18786-3, 19582-9 ####[facility] LABCLIA [id number] [place] [id number] [place] Anion gap [Moles/Vol] 10 mmol/L Normal 8-15 [facility] Comment on above: Order Comment: Speci men Type: BLOOD SPECIMENOrdering Facility: [facility] Address: [address] [place] [address] Performed By: #### 3 016-3, 80286-1, 23050-5, 12144-6 ####[facility] LABCLIA [id number] [place] [id number] [place] AST [Catalytic activity/Vol] 26 U/L Normal 14-40 [facility] Comment on above: Order Comment: Speci men Type: BLOOD SPECIMENOrdering Facility: [facility] Address: [address] [place] [address] Performed By: #### 3 016-3, 47422-6, 94086-1, 97819-3 ####[facility] LABCLIA [id number] [place] [address] [place] Bilirubin [Mass/Vol] 0.9 mg/dL Normal 0.2-1.3 [facility] Comment on above: Order Comment: Speci men Type: BLOOD SPECIMENOrdering Facility: [facility] Address: [address] [place] [address] Performed By: #### 3 016-3, 15351-0, 91734-2, 47773-3 ####[facility] LABCLIA [id number] [place] [id number] [place] Calcium [Mass/Vol] 10.2 mg/dL Normal 8.5-10.2 [facility] Comment on above: Order Comment: Speci men Type: BLOOD SPECIMENOrdering Facility: [facility] Address: [address] [place] [address] Performed By: #### 3 016-3, 40088-0, 13863-9, 90979-7 ####[facility] LABCLIA [id number] [place] [id number] [place] Chloride [Moles/Vol] 106 mmol/L Normal 98-107 [facility] Comment on above: Order Comment: Speci men Type: BLOOD SPECIMENOrdering Facility: [facility] Address: [address] [place] [address] Performed By: #### 3 016-3, 74559-2, 87474-7, 05479-3 ####[facility] LABCLIA [id number] [place] [address] [place] CO2 [Moles/Vol] 26 mmol/L Normal 22-30 [facility] Comment on above: Order Comment: Speci men Type: BLOOD SPECIMENOrdering Facility: [facility] Address: [address] [place] [address] Performed By: #### 3 016-3, 25209-3, 05668-4, 95443-4 ####[facility] LABCLIA [id number] [place] [address] [place] Creatinine [Mass/Vol] 1.29 mg/dL High 0.73-1.22 [facility] Comment on above: Order Comment: Speci men Type: BLOOD SPECIMENOrdering Facility: [facility] Address: [address] [place] [address] Performed By: #### 3 016-3, 05760-7, 76140-5, 74947-3 ####[facility] LABCLIA [id number] [place] [address] [place] Creatinine and Glomerular filtration rate.predicted panel (S/P/Bld) 53 mL/min/1.73m??? Low >=60 [facility] Comment on above: Order Comment: Speci men Type: BLOOD SPECIMENOrdering Facility: [facility] Address: [address] [place] [address] Result Comment: Yani mated Glomerular Filtration Rate [...] actual GFR. Performed By: #### 3 016-3, 05170-6, 27142-8, 61069-2 ####[facility] LABCLIA [id number] [place] [id number] [place] Glucose [Mass/Vol] 117 mg/dL High 74-99 [facility] Comment on above: Order Comment: Speci men Type: BLOOD SPECIMENOrdering Facility: [facility] Address: [address] [place] [address] Result Comment: The [place] Diabetes Association (ADA) provides guidance for cutoff [...] Standards of Medical Care in Diabetes 2016, [place] Diabetes Association. Diabetes Care. 2016.39(Suppl 1). Performed By: #### 3 016-3, 58860-2, 17307-4, 13216-5 ####[facility] LABIA [id number] [address] [address] [place] Potassium [Moles/Vol] 4.2 mmol/L Normal 3.7-5.1 [facility] Comment on above: Order Comment: Jayson moffett Type: BLOOD SPECIMENOrdering Facility: [facility] Address: [address] [place] [address] Performed By: #### 3 016-3, 76614-0, 40670-9, 96550-2 ####[facility] LABIA [id number] [place] [id number] [place] Protein [Mass/Vol] 7.3 g/dL Normal 6.3-8.0 [facility] Comment on above: Order Comment: Speci men Type: BLOOD SPECIMENOrdering Facility: [facility] Address: [address] [place] [address] Performed By: #### 3 016-3, 11929-7, 21412-7, 34772-2 ####[facility] LABIA [id number] [place] [address] [place] Sodium [Moles/Vol] 142 mmol/L Normal 136-144 [facility] Comment on above: Order Comment: Speci men Type: BLOOD SPECIMENOrdering Facility: [facility] Address: [address] [place] [address] Performed By: #### 3 016-3, 34954-3, 37899-5, 10569-2 ####[facility] [id number] [place] [address] [place] Urea nitrogen [Mass/Vol] 21 mg/dL Normal 9-24 [facility] Comment on above: Order Comment: Speci men Type: BLOOD SPECIMENOrdering Facility: [facility] Address: [address] [place] [address] Performed By: #### 3 016-3, 05194-2, 88564-7, 31972-7 ####[facility] LABIA [id number] [place] [id number] [place] HbA1c (Bld)on 05-16-2024 Average glucose Estimated from glycated hemoglobin (Bld) [Mass/Vol] 148 mg/dL [facility] Comment on above: eAG: (Estimated aver age glucose) is a calculated value from HgbA1c and is pharmacy sales representative of the average blood glucose level in the last 2-3 month period. HbA1c (Bld) [Mass fraction] 6.8 % High 4.3 - 5.6 % [facility] Comment on above: [place] Diabetes As sociation guidelines indicate that patients with HgbA1c in the range 5.7-6.4% are at increased risk for development of diabetes, and intervention by lifestyle modification may be beneficial. HgbA1c greater or equal to 6.5% is considered diagnostic of diabetes. Interpretation and review of laboratory results Abnormal [facility] Average glucose Estimated from glycated hemoglobin (Bld) [Mass/Vol] 148 mg/dL Normal [facility] Comment on above: Order Comment: Jayson moffett Type: BLOOD SPECIMENOrdering Facility: [facility] Address: [address] [place] [address] Result Comment: eAG: (Estimated average glucose) is a calculated value from HgbA1c and is pharmacy sales representative of the average blood glucose level in the last 2-3 month period. Performed By: #### 5 5454-3 ####[facility] LABIA [id number] [place] [address] [place] HbA1c (Bld) [Mass fraction] 6.8 % High 4.3-5.6 [facility] Comment on above: Order Comment: Jayson moffett Type: BLOOD SPECIMENOrdering Facility: [facility] Address: [address] [place] [address] Result Comment: [place] Diabetes Association guidelines indicate that patients with HgbA1c in the range 5.7-6.4% are at increased risk for development of diabetes, and intervention by lifestyle modification may be beneficial. HgbA1c greater or equal to 6.5% is considered diagnostic of diabetes. Performed By: #### 5 5454-3 ####[facility] LABIA [id number] [place] [id number] [place] Lipid 1996 panelon 5 Cholesterol [Mass/Vol] 65 mg/dL Normal <200 [facility] Comment on above: Order Comment: Jayson moffett Type: BLOOD SPECIMENOrdering Facility: [facility] Address: [address] [place] [address] Result Comment: <200 mg/dL, Desirable 200-239 mg/dL, Borderline high >239 mg/dL, High Performed By: #### 3 016-3, 73909-8, 20603-8, 64374-8 ####[facility] LABCLIA [id number] [place] [address] [place] Cholesterol in HDL [Mass/Vol] 27 mg/dL Low >39 [facility] Comment on above: Order Comment: Speci men Type: BLOOD SPECIMENOrdering Facility: [facility] Address: [address] [place] [address] Result Comment: 40-5 9 mg/dL, Acceptable >59 mg/dL, High: Negative risk factor for coronary heart disease <40 mg/dL, Low: Positive risk factor for coronary heart disease Performed By: #### 3 016-3, 76283-8, 11168-7, 37341-1 ####[facility] LABCLIA [id number] [address] [place] Cholesterol in LDL [Mass/Vol] 21 mg/dL Normal <100 [facility] Comment on above: Order Comment: Simoni [facility] Type: BLOOD SPECIMENOrdering Facility: [facility] Address: [address] [place] [address] Result Comment: <100 mg/dL, Optimal 100-129 mg/dL, Near optimal/above optimal 130-159 mg/dL, Borderline high 160-189 mg/dL, High >189 mg/dL, Very high Secondary prevention optimal LDL Cholesterol levels are recommended to be < 70 mg/dL Performed By: #### 3 016-3, 58197-7, 64108-3, 44505-6 ####[facility] LABCLIA [id number] [place] [id number] [place] Cholesterol in LDL/Cholesterol in HDL [Mass ratio] 0.78 {ratio} Normal <2.54 [facility] Comment on above: Order Comment: Speci men Type: BLOOD SPECIMENOrdering Facility: [facility] Address: [address] [place] [address] Result Comment: Refe rence: 1. National Cholesterol Education Program ATP III Guideline At-A-Glance Quick Desk Reference: National Heart, Lung, and Blood [place]. National Institutes of Health. 2001: NIH Publication No. 01-3305. 2. An International Atherosclerosis Society position paper: global recommendations for the management of dyslipidemia: executive summary, Atherosclerosis. 2014: 232(2):410-413. Performed By: #### 3 016-3, 05136-6, 46622-9, 15675-9 ####[facility] LABCLIA [id number] [address] [address] [place] Cholesterol in VLDL [Mass/Vol] 17 mg/dL Normal <30 [facility] Comment on above: Order Comment: Speci men Type: BLOOD SPECIMENOrdering Facility: [facility] Address: [address] [place] [address] Performed By: #### 3 016-3, 82772-7, 64976-4, 70228-8 ####[facility] LABCLIA [id number] [place] [id number] [place] Cholesterol non HDL [Mass/Vol] 38 mg/dL Normal <130 [facility] Comment on above: Order Comment: Speci men Type: BLOOD SPECIMENOrdering Facility: [facility] Address: [address] [place] [address] Result Comment: <130 mg/dL, Optimal 130-159 mg/dL, Near optimal/above optimal 160-189 mg/dL, Borderline high 190-219 mg/dL, High >219 mg/dL, Very high Secondary prevention optimal non HDL Cholesterol levels are recommended to be <100 mg/dL Performed By: #### 3 016-3, 54646-2, 95973-2, 05181-8 ####[facility] LABCLIA [id number] [address] [address] [place] Cholesterol.total/Akash sterol in HDL [Mass ratio] 2.41 {ratio} Normal <5.10 [facility] Comment on above: Order Comment: Speci men Type: BLOOD SPECIMENOrdering Facility: [facility] Address: [address] [place] [address] Performed By: #### 3 016-3, 28841-3, 34590-6, 43122-1 ####[facility] LABCLIA [id number] [address], [facility]95 [place] FASTING TIME 3 hrs Normal [facility] Comment on above: Order Comment: Speci men Type: BLOOD SPECIMENOrdering Facility: [facility] Address: [address] [place] [address] Performed By: #### 3 016-3, 92587-8, 09514-3, 35020-1 ####[facility] LABCLIA [id number] [address], [facility]95 [place] Triglyceride [Mass/Vol] 85 mg/dL Normal <150 [facility] Comment on above: Order Comment: Speci men Type: BLOOD SPECIMENOrdering Facility: [facility] Address: [address] [place] [address] Result Comment: <150 mg/dL, Normal 150-199 mg/dL, Borderline high 200-499 mg/dL, High >499 mg/dL, Very high Performed By: #### 3 016-3, 71705-1, 58159-9, 89500-6 ####[facility] LABIA [id number] [address] [place] NT-proBNP SerPl-mCncon 05-16 Natriuretic peptide.B prohormone N-Terminal [Mass/Vol] 3593 pg/mL High <450 [facility] Comment on above: Order Comment: Speci men Type: BLOOD SPECIMENOrdering Facility: [facility] Address: [address] [place] [address] Performed By: #### 3 016-3, 22456-6, 93529-1, 36563-5 ####[facility] LABCLIA [id number] [place] [id number] [place] TSH SerPl-aCncon 05-16-2024 TSH Qn 2.660 m[IU]/L Normal 0.270-4.200 [facility] Comment on above: Order Comment: Speci men Type: BLOOD SPECIMENOrdering Facility: [facility] Address: [address] [place] [address] Performed By: #### 3 016-3, 86998-3, 86502-3, 29258-5 ####[facility] LABCLIA [id number] AYDEN CAICEDO [address] OF [facility] CNPNeetu 01-31-2024 CNPN Telephone (CAWSTR) TAZ JOHNSON ([id number]) 1935 M Date Time Provider Department 01/31/24 [...] Encounter Status:Closed by EVELIO JACK on 01/31/24 [facility]OH[facility] ([id number]) 1935 M Date Time Provider Department 01/09/24 DIPAK AGUILAR [facility] During your visit today, we recorded the following information about you: Monica Vernon, CRISTOFER 01/09/2024 1:28 PM Signed Pt calls states has been trying to take the atorvastatin but keeps getting terrible diarrhea. Asking if something different could be called into pharmacy in its place. Pt is [facility] wanting this called to [facility] in [facility] on [facility] Dipak Miranda DO 01/10/2024 4:26 PM [...] Status:Closed by LAURA BEJARANO LPN on 01/10/24 [facility] Catie 01-04-2024 CNPN Telephone (AGCARDPOB ) TZA JOHNSON ([id number]) 1935 M Date Time Provider Department 01/04/24 ANALISA NICOLE AGCARDPOB During your visit today, we recorded the following information about you: Jacob Escobar 01/04/2024 2:53 PM Signed Clearance scanned in from [facility] placed in Dr. Nicole box to be reviewed. Jacob Escobar January 04, 2024 2:53 PM Jacob Escobar 01/24/2024 3:51 PM Signed Recieved completed clearance scanned in documents and faxed back to sender. Jacob Escobar January 24, 2024 3:51 PM Allergies As of Date: 01/04/2024 Noted Allergy Reaction CYPRESS 09/22/2010 14 - Other: See Comments Comments: sneezing,runny nose CEDAR 08/17/2010 3 - Cough Comments: also [place] with same reaction MOLD 08/17/2010 3 - Cough Date Reviewed: 12/12/2023 Reviewed by: Nessa Ingram, RT(R) - Partially Assessed Reason for Visit: Cardiac Clearance [5475] Prescriptions as of 01/24/2024 - rosuvastatin (CRESTOR) [...] Encounter Status:Closed by JACOB ESCOBAR on 01/04/24 Normal [facility] Heart Perfusion W stress and W radionuclide Chuck 12-12-2023 * * *Final Report* * * DATE OF EXAM: Dec 12 2023 12:50PM MAHOG[facility] [address] [place] [address] CARDIAC PERF STRESS/PHARM / PROCEDURE REASON: Shortness [...] later. See administered radiotracer and doses below. [facility] Date of service: 12/12/2023 7:52:14 AM [...] * * * -------- Stress ECG Report: [facility] Date of service: 12/12/2023 7:52:14 AM Ordering physician: ANALISA NICOLE home theater specialist: Evelio Jack RN Interpreting physician: Ilan [...] 148/82 mmHg. The double product achieved was [id number]. Medications: Last Used METOPROLOL 2 Days Resting [...] content not included)... DIVISION OF RADIOLOGY Provider, Elisa Lobo Anguiano - 12/12/2023 * * *Final Report* * [...] later. See administered radiotracer and doses below. [facility] Date of service: 12/12/2023 7:52:14 AM [...] * * * -------- Stress ECG Report: [facility] Date of service: 12/12/2023 7:52:14 AM Ordering physician: ANALISA NICOLE home theater specialist: Evelio Jack RN Interpreting physician: Ilan [...] 148/82 mmHg. The double product achieved was [id number]. Medications: Last Used METOPROLOL 2 Days Resting [...] +------+---+---+---+ 1 115 (more content not included)... 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 PULMONARY FUNCTION LAB [facility] SPIROMETRY - BASELINE AND PO GUILLERMO 12-05-2023 ERV BOX (L) 0.62 L [facility] ERV PREDICTED (L) 1.30 L[facility] FEF25% POST (L/S) 5.94 L/S [facility] FEF25% PRE (L/S) 5.73 L/S [facility] NOT63-77% LLN (L/S) 0.63 L/S [facility] FET95-45% POST (L/S) 1.74 L/S [facility] UEM17-39% PRE (L/S) 1.43 L/S [facility] QLX08-47% PREDICTED (L/S) 1.86 L/S [facility] FEF75% LLN (L/S) 0.14 L/S [facility] FEF75% POST (L/S) 0.58 L/S [facility] FEF75% PRE (L/S0 0.47 L[facility]S [facility] FEF75% PREDICTED (L/S) 0.43 L/S [facility] FEF75% ULN (L/S) 1.34 L/S [facility] FET POST (S) 10.56 S [facility] FET PRE (S) 9.39 S [facility] FEV1 LLN (L) 1.99 L [facility] FEV1 PRE (L) 2.33 L [facility] FEV1 PREDICTED (L) 2.78 L [facility] FEV1 ULN (L) 3.53 L [facility] FEV1/FVC LLN (%) 59 % [facility] FEV1/FVC POST (%) 71 % [facility] FEV1/FVC PRE (%) 70 % [facility] FEV1/FVC PREDICTED (%) 74 % Cl [facility] FEV1_POST (L) 2.44 L [facility] FRC Box (L) 3.71 L [facility] FVC LLN (L) 2.85 L [facility] FVC POST (L) 3.44 L [facility] FVC PRE (L) 3.34 L [facility] FVC PREDICTED (L) 3.89 L [facility] FVC ULN (L) 4.96 L [facility] IC BOX (L) 2.43 L [facility] IC PREDICTED (L) 2.60 L/S [facility] PEF LLN (L/S) 4.18 L/S [facility] PEF POST (L/S) 6.41 L/S [facility] PEF PRE (L/S) 5.95 L/S [facility] PEF ULN (L/S) 9.06 L/S [facility] RV Box (L) 3.09 L [facility] RV Box PREDICTED (L) 2.91 L [facility] RV/TLC Box (%) 50 % [facility] RV/TLC Box PREDICTED (%) 41 % [facility] SVC LLN (L) 2.85 L/S [facility] SVC PREDICTED (L) 3.89 L/S [facility] SVC ULN (L) 4.96 L/S [facility] TLC Box (L) 6.16 L [facility] TLC Box PREDICTED (L) 7.45 L [facility] VC (L) BOX 3.28 L [facility] XR HIP BILATERAL 5V PEL/AP/L AT EACH HIPon 11-24-2023 IMPRESSION: No acute abnormality Smoking Pipe Mounter: BLANK Transcribe Date/Time: Nov 24 2023 6:25P Dictated by : MARIANA CARABALLO MD This examination was interpreted and the report reviewed and electronically signed by: MARIANA CARABALLO MD on Nov 24 2023 6:25PM [facility] * * *Final [...] Sacroiliac joints and symphysis pubis are maintained. [facility] Provider, [facility] - 11/24/2023 * * *Final Report* [...] are maintained. IMPRESSION IMPRESSION: No acute abnormality Smoking Pipe Mounter: [facility] Transcribe Date/Time: Nov 24 2023 6:25P Dictated by : MARIANA CARABALLO MD This examination was interpreted and the report reviewed and electronically signed by: MARIANA CARABALLO MD on Nov 24 2023 6:25PM EST [facility] XR Knee - right 4 Viewson IMPRESSION: Interval TKA. Acute abnormality Smoking Pipe Mounter: PSCB Transcribe Date/Time: Nov 24 2023 6:24P Dictated by : MARIANA CARABALLO MD This examination was interpreted and the report reviewed and electronically signed by: MARIANA CARABALLO MD on Nov 24 2023 6:25PM EST [facility] * * *Final Report* * * [...] No joint effusion or soft tissue swelling. [facility] Provider, [facility] - 11/24/2023 * * *Final [...] swelling. IMPRESSION IMPRESSION: Interval TKA. Acute abnormality Smoking Pipe Mounter: [facility] Transcribe Date/Time: Nov 24 2023 6:24P Dictated by : MARIANA CARABALLO MD This examination was interpreted and the report reviewed and electronically signed by: MARIANA CARABALLO MD on Nov 24 2023 6:25PM EST [facility] XR Knee - right 4 ViewsOrder ed By: Ccf Provider on 11-24-2023 [facility] XR Lumbar spine AP and Later margie 11-24-2023 IMPRESSION: Degenerative changes Smoking Pipe Mounter: [facility] Transcribe Date/Time: Nov 24 2023 9:37P Dictated by : MARIANA CARABALLO MD This examination was interpreted and the report reviewed and electronically signed by: MARIANA CARABALLO MD on Nov 24 2023 9:38PM EST [facility] * * *Final Report* * * [...] SI joint. Partially visualized bilateral hip arthroplasties. [facility] Provider, Edgardo Anguiano - 11/24/2023 * [...] bilateral hip arthroplasties. IMPRESSION IMPRESSION: Degenerative changes Smoking Pipe Mounter: PSCB Transcribe Date/Time: Nov 24 2023 9:37P Dictated by : MARIANA CARABALLO MD This examination was interpreted and the report reviewed and electronically signed by: MARIANA CARABALLO MD on Nov 24 2023 9:38PM EST [facility] No Panel Informationon 11-22 Radiology Study observation (narrative) [facility] XR HIP KELLEY 5V PEL+ AP/LAT [...] pubis are maintained. IMPRESSION: No acute abnormality Smoking Pipe Mounter: PSCB Transcribe Date/Time: Nov 24 2023 6:25P Dictated by : MARIANA CARABALLO MD This examination was interpreted and the report reviewed and electronically signed by: MARIANA CARABALLO MD on Nov 24 2023 6:25PM EST [id number] N [facility] XR KNEE 4V AP/PA BOTH+LAT/ME R [...] tissue swelling. IMPRESSION: Interval TKA. Acute abnormality Smoking Pipe Mounter: [facility] Transcribe Date/Time: Nov 24 2023 6:24P Dictated by : MARIANA CARABALLO MD This examination was interpreted and the report reviewed and electronically signed by: MARIANA CARABALLO MD on Nov 24 2023 6:25PM EST [id number] N [facility] XR LUMBAR 2V AP/LATon 2023 XR [...] visualized bilateral hip arthroplasties. IMPRESSION: Degenerative changes Smoking Pipe Mounter: [facility] Transcribe Date/Time: Nov 24 2023 9:37P Dictated by : MARIANA CARABALLO MD This examination was interpreted and the report reviewed and electronically signed by: MARIANA CARABALLO MD on Nov 24 2023 9:38PM EST [id number] N [facility] XR Lumbar spine AP and Later margie 11-23-2023 Radiology Study observation (narrative) Mayank rivero [facility] CNOVon 06-24-2023 CNOV Office Visit (AKURFL ) TAZ JOHNSON ([id number]) 1935 M Date Time Provider Department 06/24/23 [...] hung up He is going back to [place] in a few weeks and he knows to reconnect with urology there if he has problems Could always consult with Dr. Summers or Dr. Yamile Trujillo at [facility] who are stricture specialists and [...] also Discussed options and will take to [facility] tomorrow for cystoscopy and urethral dilation and probably Benavides placement and he will hold his Levaquin [...] he was sent home same day with Benavides catheter in place Patient voiding and stream [...] shortness of breath We will schedule at [facility] Bladder scan/postvoid residual-80 cc approximate 06/29/2022 CC: marcy Saw me last noted below and had laser TURP Did well afterwards but then having more trouble so underwent TURP in December 2021 in [place] and did well but over the last month slower stream and nocturia 3-4 and moreUrgency Residual urine 79 cc Not on alpha blockers and so we will add Uroxatro (more content not included)... Normal [facility] UA DIP, URINE (POC)on 2023 BILIRUBIN UA (POCT) Negative Negative [facility] CLARITY UA (POCT) Clear [facility] COLOR UA (POCT) Yellow [facility] GLUCOSE UA (POCT) Negative Negative mg/dL [facility] Hemoglobin Ql (U) Large Abnormal Negative [facility] Interpretation and review of laboratory results Abnormal [facility] KETONE UA (POCT) Negative Negative mg/dL [facility] LEUKOCYTES UA (POCT) Small Abnormal Negative [facility] NITRITE UA (POCT) Negative Negative [facility] PH UA (POCT) 6.0 4.5 - 8.0 [facility] Protein Ql (U) Negative Negative mg/dL [facility] SPECIFIC GRAVITY UA (POCT) 1.025 1.005 - 1.030 [facility] UROBILINOGEN UA (POCT) 1.0 Alejandra l E.U./dL [facility] Location:[facility], [address] [place] [address], [address] [place] [address] POINT OF CARE [facility] UA DIP, URINE (POC)on 2022 BILIRUBIN UA (POCT) Negative Negative [facility] CLARITY UA (POCT) [facility] COLOR UA (POCT) Yellow [facility] GLUCOSE UA (POCT) Negative Negative mg/dL [facility] Hemoglobin Ql (U) Negative Negative [facility] KETONE UA (POCT) Negative Negative mg/dL [facility] LEUKOCYTES UA (POCT) Negative Negative [facility] NITRITE UA (POCT) Negative Negative [facility] PH UA (POCT) 6.5 4.5 - 8.0 [facility] Protein Ql (U) Negative Negative mg/dL [facility] SPECIFIC GRAVITY UA (POCT) 1.020 1.005 - 1.030 [facility] UROBILINOGEN UA (POCT) 0.2 E.U./dL Alejandra l E.U./dL [facility] UA DIP, URINE (POC)on 2022 BILIRUBIN UA (POCT) Negative Negative [facility] CLARITY UA (POCT) Clear [facility] COLOR UA (POCT) Yellow [facility] GLUCOSE UA (POCT) Negative Negative mg/dL [facility] Hemoglobin Ql (U) Trace-intact Abnormal Negative [facility] KETONE UA (POCT) Negative Negative mg/dL [facility] LEUKOCYTES UA (POCT) Negative Negative [facility] NITRITE UA (POCT) Negative Negative [facility] PH UA (POCT) 6.5 4.5 - 8.0 [facility] Protein Ql (U) Trace Abnormal Negative mg/dL [facility] SPECIFIC GRAVITY UA (POCT) >=1.030 1.005 - 1.030 [facility] UROBILINOGEN UA (POCT) 1.0 E.U./dL Alejandra l E.U./dL [facility] UA DIP, URINE (POC)on 2022 BILIRUBIN UA (POCT) Negative Negative [facility] CLARITY UA (POCT) Clear [facility] COLOR UA (POCT) Yellow [facility] GLUCOSE UA (POCT) Negative Negative mg/dL [facility] HEMOGLOBIN/BLOOD UA (POCT) Negative Negative [facility] KETONE UA (POCT) Negative Negative mg/dL [facility] LEUKOCYTES UA (POCT) Trace Abnormal Negative [facility] NITRITE UA (POCT) Negative Negative [facility] PH UA (POCT) 5.5 4.5 - 8.0 [facility] Protein Ql (U) Negative Negative mg/dL [facility] SPECIFIC GRAVITY UA (POCT) 1.020 1.005 - 1.030 [facility] UROBILINOGEN UA (POCT) 0.2 E.U./dL Alejandra l E.U./dL [facility] No Panel Informationon 10-13 Radiology Study observation (narrative) Mayank rivero [facility] XR Chest PA and Lateralon IMPRESSION: Linear indeterminate density at both lung bases. Likely atelectasis or fibrosis. No new significant collapse or consolidation Smoking Pipe Mounter: BLANK Transcribe Date/Time: Oct 13 2020 10:37A Dictated by : HENRY PEÑA MD This examination was interpreted and the report reviewed and electronically signed by: HENRY PEÑA MD on Oct 13 2020 10:40AM [facility] DIVISION OF RADIOLOGY * * *Final Report* [...] soft tissues: Unremarkable. DIVISION OF RADIOLOGY Provider, [facility] - 10/13/2020 * * *Final Report* * [...] fibrosis. No new significant collapse or consolidation Smoking Pipe Mounter: [facility] Transcribe Date/Time: Oct 13 2020 10:37A Dictated by : HENRY PEÑA MD This examination was interpreted and the report reviewed and electronically signed by: HENRY PEÑA MD on Oct 13 2020 10:40AM EST [facility] XR Knee - right 4 Viewson IMPRESSION: Degenerative changes as described. Smoking Pipe Mounter: [facility] Transcribe Date/Time: Oct 13 2020 10:38A [...] joint space narrowing. DIVISION OF RADIOLOGY Provider, [facility] - 10/13/2020 * * *Final Report* * [...] narrowing. IMPRESSION IMPRESSION: Degenerative changes as described. Smoking Pipe Mounter: BLANK Transcribe Date/Time: Oct 13 2020 10:38A Dictated by : JAVAN LOUIS MD This examination was interpreted and the report reviewed and electronically signed by: JAVAN LOUIS MD on Oct 13 2020 10:39AM EST [facility] XR Knee - right 4 ViewsOrder ed By: Ccf Provider on 10-13-2020 [facility] US MSR POST-VOID RESID URINE [facility] Vital Signs Date Time Vital Sign Value Performing Clinician Facility 11-22-2024 08:33-0400 Body temperature 98.4 [degF] Dr. Dipak Aguilar DO Work Phone: [facility] 11-22-2024 08:33-0400 Diastolic blood pressure 70 mm[Hg] Dr. Dipak Aguilar DO Work Phone: 6(596)739-524595 [place] [address] 11-22-2024 08:33-0400 Heart rate 90 /min Dr. Dipak Aguilar DO Work Phone: [facility] 11-22-2024 08:33-0400 Respiratory rate 18 /min Dr. Dipak Aguilar DO Work Phone: [facility] 11-22-2024 08:33-0400 SaO2% (BldA) [Mass fraction] 95 % Dr. Dipak Aguilar DO Work Phone: [facility] 11-22-2024 08:33-0400 Systolic blood pressure 129 mm[Hg] Dr. Dipak Aguilar DO Work Phone: [facility] 11-20-2024 14:00-0400 Body mass index (BMI) [Ratio] 26.6 kg/m2 Dr. Dipak Aguilar DO Work Phone: [facility] 11-20-2024 14:00-0400 Body weight 89.[address] Dipak Aguilar DO Work Phone: 5(827)282-142407 [place] [address] 11-20-2024 13:47-0400 Heart rate 84 /min Dr. Dipak Aguilar DO Work Phone: 5(060)887-758507 [place] [address] 11-20-2024 13:47-0400 Respiratory rate 16 /min Dr. Dipak Aguilar DO Work Phone: 1(702)092-120507 [place] [address] 11-20-2024 13:47-0400 SaO2% (BldA) [Mass fraction] 96 % Dr. Dipak Aguilar DO Work Phone: 9(312)623-359707 [place] [address] 11-20-2024 09:57-0400 Body temperature 97.3 [degF] Dr. Dipak Aguilar DO Work Phone: 9(627)570-667707 [place] [address] 11-20-2024 09:57-0400 Diastolic blood pressure 62 mm[Hg] Dr. Dipak Aguilar DO Work Phone: 1(224)755-706407 [place] [address] 11-20-2024 09:57-0400 Systolic blood pressure 121 mm[Hg] Dr. Dipak Aguilar DO Work Phone: 2(956)049-919607 [place] [address] 11-19-2024 07:15-0400 Inhaled oxygen flow rate 2 L/min Dr. Dipak Aguilar DO Work Phone: 6(531)005-091907 [place] [address] 11-14-2024 12:09-0400 Body height 182.[address] Dipak Aguilar DO Work Phone: 9(239)089-962007 [place] [address] 11-10-2024 20:00-0400 Diastolic blood pressure 57 mm[Hg] Dr. Dipak Aguilar DO Work Phone: 7(444)427-098107 [place] [address] 11-10-2024 20:00-0400 Heart rate 87 /min Dr. Dipak Aguilar DO Work Phone: 5(142)097-279095 [place] [address] 11-10-2024 20:00-0400 Inhaled oxygen flow rate 2 L/min Dr. Dipak Aguilar DO Work Phone: 5(914)109-088907 [place] [address] 11-10-2024 20:00-0400 Respiratory rate 25 /min Dr. Dipak Aguilar DO Work Phone: 3(580)023-218607 [place] [address] 11-10-2024 20:00-0400 SaO2% (BldA) [Mass fraction] 97 % Dr. Dipak Aguilar DO Work Phone: 5(238)449-031107 [place] [address] 11-10-2024 20:00-0400 Systolic blood pressure 127 mm[Hg] Dr. Dipak Aguilar DO Work Phone: 0(571)112-733207 [place] [address] 11-10-2024 19:56-0400 Body temperature 98.4 [degF] Dr. Dipak Aguilar DO Work Phone: 3(777)047-129007 [place] [address] 11-10-2024 17:53-0400 Body mass index (BMI) [Ratio] 29 kg/m2 Dr. Dipak Aguilar DO Work Phone: 0(475)746-839507 [place] [address] 11-10-2024 17:53-0400 Body weight 96.[address] Dipak Aguilar DO Work Phone: 8(151)628-387707 [place] [address] 11-06-2024 12:46-0400 Heart rate 69 /min Dr. Dipak Aguilar DO Work Phone: 8(994)057-360107 [place] [address] 11-06-2024 12:46-0400 Respiratory rate 18 /min Dr. Dipak Aguilar DO Work Phone: 7(601)871-050307 [place] [address] 11-06-2024 12:25-0400 Diastolic blood pressure 67 mm[Hg] Dr. Dipak Aguilar DO Work Phone: 6(979)338-498107 [place] [address] 11-06-2024 12:25-0400 Inhaled oxygen flow rate 2 L/min Dr. Dipak Aguilar DO Work Phone: 6(881)009-343507 [place] [address] 11-06-2024 12:25-0400 SaO2% (BldA) [Mass fraction] 93 % Dr. Dipak Aguilar DO Work Phone: 2(941)080-687507 [place] [address] 11-06-2024 12:25-0400 Systolic blood pressure 123 mm[Hg] Dr. Dipak Aguilar DO Work Phone: 6(587)887-412407 [place] [address] 11-06-2024 08:47-0400 Body temperature 97.8 [degF] Dr. Dipak Aguilar DO Work Phone: 4(953)631-779607 [place] [address] 11-05-2024 05:18-0400 Body mass index (BMI) [Ratio] 29.4 kg/m2 Dr. Dipak Aguilar DO Work Phone: 1(874)084-349907 [place] [address] 11-05-2024 05:18-0400 Body weight 98.[address] Dipak Aguilar DO Work Phone: 0(786)697-743207 [place] [address] 11-03-2024 12:00-0400 Inhaled oxygen concentration 35 % Dr. Dipak Aguilar DO Work Phone: 7(219)788-064407 [place] [address] 11-01-2024 11:17-0400 Body height 182.[address] Dipak Aguilar DO Work Phone: 0(724)772-911407 [place] [address] 10-26-2024 22:59-0400 Body temperature 99.1 [degF] Dr. Dipak Aguilar DO Work Phone: 8(487)246-889907 [place] [address] 10-26-2024 22:59-0400 Diastolic blood pressure 74 mm[Hg] Dr. Dipak Aguilar DO Work Phone: 1(203)290-047407 [place] [address] 10-26-2024 22:59-0400 Heart rate 93 /min Dr. Dipak Aguilar DO Work Phone: 9(015)735-305407 [place] [address] 10-26-2024 22:59-0400 Inhaled oxygen flow rate 2 L/min Dr. Dipak Aguilar DO Work Phone: 7(639)916-823907 [place] [address] 10-26-2024 22:59-0400 Respiratory rate 23 /min Dr. Dipak Aguilar DO Work Phone: 4(472)650-650607 [place] [address] 10-26-2024 22:59-0400 SaO2% (BldA) [Mass fraction] 93 % Dr. Dipak Aguilar DO Work Phone: 6(923)894-330307 [place] [address] 10-26-2024 22:59-0400 Systolic blood pressure 111 mm[Hg] Dr. Dipak Aguilar DO Work Phone: 4(719)201-581607 [place] [address] 10-26-2024 16:40-0400 Body height 182.[address] Dipak Aguilar DO Work Phone: 7(594)221-522207 [place] [address] 10-26-2024 16:40-0400 Body mass index (BMI) [Ratio] 26.9 kg/m2 Dr. Dipak Aguilar DO Work Phone: 9(432)452-974707 [place] [address] 10-26-2024 16:40-0400 Body weight 90.[address] Dipak Aguilar DO Work Phone: 7(761)672-602007 [place] [address] 10-14-2024 08:45-0400 Body temperature 97.6 [degF] Dr. Dipak Aguilar DO Work Phone: 7(543)099-690207 [place] [address] 10-14-2024 08:45-0400 Diastolic blood pressure 87 mm[Hg] Dr. Dipak Aguilar DO Work Phone: 7(825)818-242907 [place] [address] 10-14-2024 08:45-0400 Heart rate 71 /min Dr. Dipak Aguilar DO Work Phone: 4(134)414-280207 [place] [address] 10-14-2024 08:45-0400 Respiratory rate 17 /min Dr. Dipak gAuilar DO Work Phone: 1(698)091-792607 [place] [address] 10-14-2024 08:45-0400 SaO2% (BldA) [Mass fraction] 97 % Dr. Dipak Aguilar DO Work Phone: 7(308)222-026707 [place] [address] 10-14-2024 08:45-0400 Systolic blood pressure 133 mm[Hg] Dr. Dipak Aguilar DO Work Phone: 7(595)955-763707 [place] [address] 10-14-2024 07:29-0400 Body height 182.[address] Dipak Aguilar DO Work Phone: 6(176)686-743907 [place] [address] 10-14-2024 07:29-0400 Body mass index (BMI) [Ratio] 27.1 kg/m2 Dr. Dipak Aguilar DO Work Phone: 6(466)476-231607 [place] [address] 10-14-2024 07:29-0400 Body weight 90.[address] Dipak Aguilar DO Work Phone: [facility] 09-21-2024 08:28-0400 Body mass index (BMI) [Ratio] 27.89 kg/m2 Vikki Haagen REACHER.AUDIO VISUAL EQUIPMENT RENTAL CLERK Work Phone: [facility] 09-21-2024 08:28-0400 Body weight 90.72 kg Vikki Haagen REACHER.AUDIO VISUAL EQUIPMENT RENTAL CLERK Work Phone: [facility] 09-21-2024 08:28-0400 Diastolic blood pressure 70 mm[Hg] Vikki Haagen REACHER.AUDIO VISUAL EQUIPMENT RENTAL CLERK Work Phone: [facility] 09-21-2024 08:28-0400 Heart rate 101 /min Vikki Haagen REACHER.AUDIO VISUAL EQUIPMENT RENTAL CLERK Work Phone: [facility] 09-21-2024 08:28-0400 Respiratory rate 16 /min Vikki Haagen REACHER.AUDIO VISUAL EQUIPMENT RENTAL CLERK Work Phone: [facility] 09-21-2024 08:28-0400 Systolic blood pressure 122 mm[Hg] Vikki Haagen REACHER.AUDIO VISUAL EQUIPMENT RENTAL CLERK Work Phone: [facility] 09-17-2024 08:21-0400 Body mass index (BMI) [Ratio] 27.95 kg/m2 Vikki Haagen REACHER.AUDIO VISUAL EQUIPMENT RENTAL CLERK Work Phone: [facility] 09-17-2024 08:21-0400 Body weight 90.9 kg Vikki Haagen REACHER.AUDIO VISUAL EQUIPMENT RENTAL CLERK Work Phone: [facility] 09-17-2024 08:21-0400 Diastolic blood pressure 70 mm[Hg] Vikki Haagen REACHER.AUDIO VISUAL EQUIPMENT RENTAL CLERK Work Phone: [facility] 09-17-2024 08:21-0400 Heart rate 101 /min Vikki Haagen REACHER.AUDIO VISUAL EQUIPMENT RENTAL CLERK Work Phone: [facility] 09-17-2024 08:21-0400 Respiratory rate 16 /min Vikki Haagen REACHER.AUDIO VISUAL EQUIPMENT RENTAL CLERK Work Phone: [facility] 09-17-2024 08:21-0400 SaO2% (BldA) [Mass fraction] 98 % Vikki Albrecht APRN.AUDIO VISUAL EQUIPMENT RENTAL CLERK Work Phone: [facility] 09-17-2024 08:21-0400 Systolic blood pressure 122 mm[Hg] Vikki Albrecht APRN.AUDIO VISUAL EQUIPMENT RENTAL CLERK Work Phone: [facility] 09-11-2024 12:56-0400 Body temperature 97.4 [degF] Dr. Dipak Aguilar DO Work Phone: [facility] 09-11-2024 12:56-0400 Diastolic blood pressure 123 mm[Hg] Dr. Dipak Aguilar DO Work Phone: [facility] 09-11-2024 12:56-0400 Heart rate 78 /min Dr. Dipak Aguilar DO Work Phone: [facility] 09-11-2024 12:56-0400 Respiratory rate 16 /min Dr. Dipak Aguilar DO Work Phone: [facility] 09-11-2024 12:56-0400 SaO2% (BldA) [Mass fraction] 100 % Dr. Dipak Aguilar DO Work Phone: [facility] 09-11-2024 12:56-0400 Systolic blood pressure 190 mm[Hg] Dr. Dipak Aguilar DO Work Phone: [facility] 09-11-2024 10:13-0400 Body height 185.[address] Dipak Aguilar DO Work Phone: [facility] 09-11-2024 10:13-0400 Body mass index (BMI) [Ratio] 26.2 kg/m2 Dr. Dipak Aguilar DO Work Phone: [facility] 09-11-2024 10:13-0400 Body weight 90.[address] Dipak Aguilar DO Work Phone: [facility] 09-10-2024 11:58-0400 Diastolic blood pressure 88 mm[Hg] Elaine Jiang Jr., MD Work Phone: [facility] Comment on above: manual recheck 09-10-2024 11:58-0400 Systolic blood pressure 136 mm[Hg] Elaine Jiang Jr., MD Work Phone: [facility] Comment on above: manual recheck 09-10-2024 11:19-0400 Body mass index (BMI) [Ratio] 27.48 kg/m2 Elaine Jiang Jr., MD Work Phone: [facility] 09-10-2024 11:19-0400 Body weight 89.36 kg Elaine Jiang Jr., MD Work Phone: [facility] 09-10-2024 11:19-0400 Heart rate 83 /min Elaine Jiang Jr., MD Work Phone: [facility] 09-10-2024 11:19-0400 Respiratory rate 16 /min Elaine Jiang Jr., MD Work Phone: [facility] 09-10-2024 11:19-0400 SaO2% (BldA) [Mass fraction] 97 % Elaine Jiang Jr., MD Work Phone: [facility] 09-05-2024 11:55-0400 Body mass index (BMI) [Ratio] 27.62 kg/m2 Dipak Aguilar DO Work Phone: [facility] 09-05-2024 11:55-0400 Body temperature 97 [degF] Dipak Aguilar DO Work Phone: [facility] 09-05-2024 11:55-0400 Body weight 89.81 kg Dipak Aguilra DO Work Phone: [facility] 09-05-2024 11:55-0400 Diastolic blood pressure 82 mm[Hg] Dipak Aguilar DO Work Phone: [facility] 09-05-2024 11:55-0400 Heart rate 80 /min Dipak Aguilar DO Work Phone: [facility] 09-05-2024 11:55-0400 Respiratory rate 20 /min Dipak Aguilar DO Work Phone: [facility] 09-05-2024 11:55-0400 Systolic blood pressure 128 mm[Hg] Dipak Jeff Work Phone: [facility] 07-02-2024 15:27-0400 Body height 180.3 cm Analisa Nicole MD Work Phone: [facility] 07-02-2024 15:27-0400 Body mass index (BMI) [Ratio] 28.4 kg/m2 Analisa Nicole MD Work Phone: [facility] 07-02-2024 15:27-0400 Body weight 92.35 kg Analisa Nicole MD Work Phone: [facility] 07-02-2024 15:27-0400 Diastolic blood pressure 70 mm[Hg] Analisa Nicole MD Work Phone: [facility] 07-02-2024 15:27-0400 Heart rate 90 /min Analisa Nicole MD Work Phone: [facility] 07-02-2024 15:27-0400 Respiratory rate 12 /min Analisa Nicole MD Work Phone: [facility] 07-02-2024 15:27-0400 SaO2% (BldA) [Mass fraction] 96 % Analisa Nicole MD Work Phone: [facility] 07-02-2024 15:27-0400 Systolic blood pressure 128 mm[Hg] Analisa Nicole MD Work Phone: [facility] 06-28-2024 13:31-0400 Body mass index (BMI) [Ratio] 28.19 kg/m2 Elisa Garcia REACHER.AUDIO VISUAL EQUIPMENT RENTAL CLERK Work Phone: [facility] 06-28-2024 13:31-0400 Body weight 93.8 kg Elisa Garcia REACHER.AUDIO VISUAL EQUIPMENT RENTAL CLERK Work Phone: [facility] 06-28-2024 13:31-0400 Diastolic blood pressure 88 mm[Hg] Elisa Garcia REACHER.AUDIO VISUAL EQUIPMENT RENTAL CLERK Work Phone: [facility] 06-28-2024 13:31-0400 Heart rate 76 /min Elisa Chanelle REACHER.AUDIO VISUAL EQUIPMENT RENTAL CLERK Work Phone: [facility] 06-28-2024 13:31-0400 SaO2% (BldA) [Mass fraction] 95 % Elisa Chanelle REACHER.AUDIO VISUAL EQUIPMENT RENTAL CLERK Work Phone: [facility] 06-28-2024 13:31-0400 Systolic blood pressure 144 mm[Hg] Elisa Chanelle REACHER.AUDIO VISUAL EQUIPMENT RENTAL CLERK Work Phone: [facility] 05-30-2024 14:41-0400 Body mass index (BMI) [Ratio] 27.68 kg/m2 Elisa Chanelle REACHER.AUDIO VISUAL EQUIPMENT RENTAL CLERK Work Phone: [facility] 05-30-2024 14:41-0400 Body weight 92.08 kg Elisa Chanelle REACHER.AUDIO VISUAL EQUIPMENT RENTAL CLERK Work Phone: [facility] 05-30-2024 14:41-0400 Diastolic blood pressure 78 mm[Hg] Elisa Chanelle REACHER.AUDIO VISUAL EQUIPMENT RENTAL CLERK Work Phone: [facility] 05-30-2024 14:41-0400 Heart rate 78 /min Elisa Chanelle REACHER.AUDIO VISUAL EQUIPMENT RENTAL CLERK Work Phone: [facility] 05-30-2024 14:41-0400 SaO2% (BldA) [Mass fraction] 94 % Elisa Chanelle REACHER.AUDIO VISUAL EQUIPMENT RENTAL CLERK Work Phone: [facility] 05-30-2024 14:41-0400 Systolic blood pressure 110 mm[Hg] Elisa Chanelle REACHER.AUDIO VISUAL EQUIPMENT RENTAL CLERK Work Phone: [facility] 05-16-2024 13:15-0400 Body mass index (BMI) [Ratio] 28.96 kg/m2 Radha Berman REACHER.AUDIO VISUAL EQUIPMENT RENTAL CLERK Work Phone: [facility] 05-16-2024 13:15-0400 Body weight 96.34 kg Radha Berman REACHER.AUDIO VISUAL EQUIPMENT RENTAL CLERK Work Phone: [facility] 05-16-2024 13:15-0400 Diastolic blood pressure 68 mm[Hg] Radha Berman REACHER.AUDIO VISUAL EQUIPMENT RENTAL CLERK Work Phone: [facility] 05-16-2024 13:15-0400 Heart rate 87 /min Radha Berman REACHER.AUDIO VISUAL EQUIPMENT RENTAL CLERK Work Phone: [facility] 05-16-2024 13:15-0400 Respiratory rate 16 /min Radha Berman REACHER.AUDIO VISUAL EQUIPMENT RENTAL CLERK Work Phone: [facility] 05-16-2024 13:15-0400 SaO2% (BldA) [Mass fraction] 97 % Radha Berman REACHER.AUDIO VISUAL EQUIPMENT RENTAL CLERK Work Phone: [facility] 05-16-2024 13:15-0400 Systolic blood pressure 130 mm[Hg] Radha Berman REACHER.AUDIO VISUAL EQUIPMENT RENTAL CLERK Work Phone: [facility] 12-05-2023 13:31-0400 Body height 182.4 cm Pulm Wstr Work Phone: [facility] 12-05-2023 13:31-0400 Body mass index (BMI) [Ratio] 27.54 kg/m2 Pulm Wstr Work Phone: [facility] 12-05-2023 13:31-0400 Body weight 91.63 kg Pulm Wstr Work Phone: [facility] 12-05-2023 13:31-0400 Heart rate 87 /min Pulm Wstr Work Phone: [facility] 12-05-2023 13:31-0400 Respiratory rate 16 /min Pulm Wstr Work Phone: [facility] 12-05-2023 13:31-0400 SaO2% (BldA) [Mass fraction] 97 % Pulm [facility]str Work Phone: [facility] 11-29-2023 07:05-0400 Body mass index (BMI) [Ratio] 27.53 kg/m2 Elisa Chanelle REACHER.AUDIO VISUAL EQUIPMENT RENTAL CLERK Work Phone: [facility] 11-29-2023 07:05-0400 Body weight 92.08 kg Elisa Chanelle REACHER.AUDIO VISUAL EQUIPMENT RENTAL CLERK Work Phone: [facility] 11-29-2023 07:05-0400 Diastolic blood pressure 78 mm[Hg] Elisa Chanelle REACHER.AUDIO VISUAL EQUIPMENT RENTAL CLERK Work Phone: [facility] 11-29-2023 07:05-0400 Heart rate 78 /min Elisa Chanelle REACHER.AUDIO VISUAL EQUIPMENT RENTAL CLERK Work Phone: [facility] 11-29-2023 07:05-0400 Respiratory rate 16 /min Elisa Chanelle REACHER.AUDIO VISUAL EQUIPMENT RENTAL CLERK Work Phone: [facility] 11-29-2023 07:05-0400 SaO2% (BldA) [Mass fraction] 98 % Elisa Chanelle REACHER.AUDIO VISUAL EQUIPMENT RENTAL CLERK Work Phone: [facility] 11-29-2023 07:05-0400 Systolic blood pressure 126 mm[Hg] Elisa Chanelle REACHER.AUDIO VISUAL EQUIPMENT RENTAL CLERK Work Phone: [facility] 09-12-2023 10:16-0400 Body height 182.9 cm Analisa Nicole MD Work Phone: [facility] 09-12-2023 10:16-0400 Body mass index (BMI) [Ratio] 27.97 kg/m2 Analisa Nicole MD Work Phone: [facility] 09-12-2023 10:16-0400 Body weight 93.53 kg Analisa Nicole MD Work Phone: [facility] 09-12-2023 10:16-0400 Diastolic blood pressure 99 mm[Hg] Analsia Nicole MD Work Phone: [facility] 09-12-2023 10:16-0400 Heart rate 75 /min Analisa Nicole MD Work Phone: [facility] 09-12-2023 10:16-0400 SaO2% (BldA) [Mass fraction] 94 % Analisa Nicole MD Work Phone: [facility] 09-12-2023 10:16-0400 Systolic blood pressure 145 mm[Hg] Analisa Nicole MD Work Phone: [facility] 06-24-2023 08:19-0400 Body height 182.9 cm Aj Issa MD Work Phone: [facility] 06-24-2023 08:19-0400 Heart rate 72 /min Aj Issa MD Work Phone: [facility] 06-24-2023 08:19-0400 SaO2% (BldA) [Mass fraction] 100 % Aj Issa MD Work Phone: [facility] 10-19-2022 10:09-0400 Body height 185.4 cm Aj Issa MD Work Phone: [facility] 10-19-2022 10:09-0400 Heart rate 76 /min Aj Issa MD Work Phone: [facility] 10-19-2022 10:09-0400 SaO2% (BldA) [Mass fraction] 100 % Aj Issa MD Work Phone: [facility] 10-12-2022 11:40-0400 Diastolic blood pressure 72 mm[Hg] Beata Watkins APRN.AUDIO VISUAL EQUIPMENT RENTAL CLERK Work Phone: [facility] 10-12-2022 11:40-0400 Heart rate 77 /min Beata Watkins APRN.AUDIO VISUAL EQUIPMENT RENTAL CLERK Work Phone: [facility] 10-12-2022 11:40-0400 SaO2% (BldA) [Mass fraction] 98 % Beata Watkins APRN.AUDIO VISUAL EQUIPMENT RENTAL CLERK Work Phone: [facility] 10-12-2022 11:40-0400 Systolic blood pressure 126 mm[Hg] Beata Watkins APRN.AUDIO VISUAL EQUIPMENT RENTAL CLERK Work Phone: [facility] 08-31-2022 08:21-0400 Body weight 93.44 kg Wes Mcintosh MD Work Phone: [facility] 08-31-2022 08:21-0400 Diastolic blood pressure 70 mm[Hg] Wes Mcintosh MD Work Phone: [facility] 08-31-2022 08:21-0400 Heart rate 74 /min Wes Mcintosh MD Work Phone: [facility] 08-31-2022 08:21-0400 Systolic blood pressure 110 mm[Hg] Wes Mcintosh MD Work Phone: [facility] 08-17-2022 10:19-0400 Body height 185.4 cm Aj Issa MD Work Phone: [facility] 08-17-2022 10:19-0400 Heart rate 91 /min Aj Issa MD Work Phone: [facility] 08-17-2022 10:19-0400 SaO2% (BldA) [Mass fraction] 97 % Aj Issa MD Work Phone: [facility] 07-26-2022 09:23-0400 Body weight 96.16 kg Crystal Pradhan REACHER.AUDIO VISUAL EQUIPMENT RENTAL CLERK Work Phone: [facility] 07-26-2022 09:23-0400 Diastolic blood pressure 84 mm[Hg] Crystal Pradhan REACHER.AUDIO VISUAL EQUIPMENT RENTAL CLERK Work Phone: [facility] 07-26-2022 09:23-0400 Heart rate 74 /min Crystal Pradhan REACHER.AUDIO VISUAL EQUIPMENT RENTAL CLERK Work Phone: [facility] 07-26-2022 09:23-0400 Respiratory rate 14 /min Crystal Pradhan REACHER.AUDIO VISUAL EQUIPMENT RENTAL CLERK Work Phone: [facility] 07-26-2022 09:23-0400 Systolic blood pressure 128 mm[Hg] Crystal Pradhan REACHER.AUDIO VISUAL EQUIPMENT RENTAL CLERK Work Phone: [facility] 07-20-2022 10:12-0400 Body height 185.4 cm Aj Issa MD Work Phone: [facility] 07-20-2022 10:12-0400 Diastolic blood pressure 90 mm[Hg] Aj Issa MD Work Phone: [facility] 07-20-2022 10:12-0400 Heart rate 84 /min Aj Issa MD Work Phone: [facility] 07-20-2022 10:12-0400 Systolic blood pressure 144 mm[Hg] Aj Issa MD Work Phone: [facility] 07-01-2022 07:12-0400 Body temperature 97.59 [degF] Krislyn Aberegg PA Work Phone: [facility] 07-01-2022 07:12-0400 Body weight 96.8 kg Krislyn Aberegg PA Work Phone: [facility] 07-01-2022 07:12-0400 Diastolic blood pressure 76 mm[Hg] Krislyn Aberegg PA Work Phone: [facility] 07-01-2022 07:12-0400 Heart rate 94 /min Krislyn Aberegg PA Work Phone: [facility] 07-01-2022 07:12-0400 Respiratory rate 18 /min Krislyn Aberegg PA Work Phone: [facility] 07-01-2022 07:12-0400 SaO2% (BldA) [Mass fraction] 96 % Krislyn Aberegg PA Work Phone: [facility] 07-01-2022 07:12-0400 Systolic blood pressure 128 mm[Hg] Krislyn Aberegg PA Work Phone: [facility] 06-29-2022 15:26-0400 Body height 180.3 cm Aj Issa MD Work Phone: [facility] 06-29-2022 15:26-0400 Body weight 95.25 kg Aj Issa MD Work Phone: [facility] 06-29-2022 15:26-0400 Respiratory rate 18 /min Aj Issa MD Work Phone: [facility] 12-08-2021 09:35-0400 Body temperature 97.59 [degF] Korin Araiza APRN.CNP Work Phone: [facility] 12-08-2021 09:35-0400 Body weight 95.53 kg Korin Araiza APRN.AUDIO VISUAL EQUIPMENT RENTAL CLERK Work Phone: [facility] 12-08-2021 09:35-0400 Diastolic blood pressure 64 mm[Hg] Korin Araiza APRN.AUDIO VISUAL EQUIPMENT RENTAL CLERK Work Phone: [facility] 12-08-2021 09:35-0400 Heart rate 86 /min Korin Araiza APRN.AUDIO VISUAL EQUIPMENT RENTAL CLERK Work Phone: [facility] 12-08-2021 09:35-0400 Respiratory rate 18 /min Korin Araiza APRN.AUDIO VISUAL EQUIPMENT RENTAL CLERK Work Phone: [facility] 12-08-2021 09:35-0400 SaO2% (BldA) [Mass fraction] 99 % Korin Araiza APRN.AUDIO VISUAL EQUIPMENT RENTAL CLERK Work Phone: [facility] 12-08-2021 09:35-0400 Systolic blood pressure 122 mm[Hg] Korin Araiza APRN.AUDIO VISUAL EQUIPMENT RENTAL CLERK Work Phone: [facility] Encounters Encounter Date Encounter Type Care Provider Facility Start: 11-28-2024 End: 11-28-2024 ambulatory DIPAK AGUILAR Facility:[facility] Start: 11-23-2024 End: 11-23-2024 Dr. Kenn Cavazos MD -[facility] Work Phone: Start: 11-23-2024 End: 11-23-[address] Dipak Aguilar DO Work Phone: -[facility] Start: 11-11-2024 Follow-up status Dr. Dipak perez DO Work Phone: [facility] Start: 11-10-2024 End: 11-10-2024 Dr[facility] Work [facility]: Start: 11-10-2024 End: 11-10-2024 Emergency department patient visit Dr. Dipak Aguilar DO Work Phone: -Emergency Department Start: 11-06-2024 End: 11-22-2024 Evaluation and management of inpatient Dr. Dipak Aguilar DO Work Phone: -Transitional Care Unit Start: 11-06-2024 End: 11-22-2024 Dr. Brandon Black MD -Transitional Care Unit Start: 11-06-2024 Dr. Ilan Contreras MD -[facility] Work Phone: Start: 11-06-2024 Kylee ParkerW -[facility] Start: 11-05-2024 Dr. Ilan Contreras MD -[facility] Work Phone: Start: 11-04-2024 Dr. Genia Scott [facility] Work Phone: Start: 11-03-2024 Dr. Genia Scott [facility] Work Phone: Start: 11-02-2024 Dr. Genia Scott [facility] Work Phone: Start: 11-01-2024 Kylee Altamirano -[facility] Start: 10-31-2024 Airam Gottlieb NP-[facility] Start: 10-31-2024 Dr. Cece Bella MD - [facility] Start: 10-31-2024 Dr. Khai Bose MD -[facility] Work Phone: Start: 10-30-2024 [facility] Start: 10-30-2024 Dr. Goran Bowens [facility] Start: 10-29-2024 Kylee ParkerW -[facility] Start: 10-28-2024 Dr. Cece Bella MD - [facility] Work Phone: Start: 10-28-2024 Dr. Kenn Cavazos MD - [facility] Start: 10-28-2024 Dr. Khai Bose MD -[facility] Work Phone: Start: 10-27-2024 Dr. Kenn Cavazos MD - [facility] Start: 10-27-2024 ambulatory Dipak Aguilar Facilit y:[facility] Start: 10-27-2024 Dr. Sue Anderson MD -[facility] Start: 10-27-2024 Dr. Khai Bose MD [facility] Work Phone: Start: 10-26-2024 End: 11-06-2024 Evaluation and management of inpatient Dr. Fernanda Triplett MD -Intensive Care Unit Work Phone: Start: 10-26-2024 End: 11-06-2024 Dr. Ilan Contreras MD -[facility] Work Phone: Start: 10-26-2024 End: 10-26-2024 ambulatory Dipak Aguilar DO Work Phone: [facility] Comment on above: Nausea Start: 10-14-2024 End: 10-14-2024 Dr. Abdelrahman Keller MD -Emergency Departm ent Work Phone: Start: 10-14-2024 End: 10-14-2024 Emergency department patient visit Dr. Dipak Aguilar DO Work Phone: -Emergency Department Work Phone: Start: 10-10-2024 End: 10-11-2024 Telephone encounter Dipak Aguilar DO Work Phone: [facility] Comment on above: Patent Update: Chase tayler BP Start: 09-21-2024 End: 09-21-2024 Patient encounter procedure Vikki Albrecht REACHER.AUDIO VISUAL EQUIPMENT RENTAL CLERK Work Phone: [facility] Comment on above: Laceration of right hand without foreign body, subsequent encounter (Primary Dx) Start: 09-21-2024 End: 09-21-2024 ambulatory DIPAK AGUILAR Facility:[facility] Start: 09-17-2024 End: 09-17-2024 Office outpatient visit 25 minutes Vikki Albrecht REACHER.AUDIO VISUAL EQUIPMENT RENTAL CLERK Work Phone: [facility] Comment on above: Right eyelid lacerat ion, subsequent encounter (Primary Dx) Start: 09-17-2024 End: 09-17-2024 ambulatory DIPAK AGUILAR Facility:[facility] Start: 09-11-2024 End: 09-11-2024 Dr. Sukhdev Mark MD -Emergency Departmen t Work Phone: Start: 09-11-2024 End: 09-11-2024 Emergency department patient visit Dr. 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; Laceration without foreign body of right hand, initial encounter; Atrial fibrillation, unspecified type (HCC) Start: 09-10-2024 End: 09-10-2024 ambulatory RADHA BERMAN Facility:[facility] Start: 09-10-2024 End: 09-10-2024 Patient encounter procedure Elaine Jiang MD Work Phone: Neurology Comment on above: TIA (transient ische alex attack) (Primary Dx); Mild cognitive impairment; Memory loss; Sleep apnea-like behavior; History of atrial fibrillation Start: 09-07-2024 End: 09-07-2024 ambulatory DIPAK AGUILAR Facility:[facility] Start: 09-05-2024 End: 09-05-2024 Patient encounter procedure Dipak Aguilar DO Work Phone: [facility] [place] Comment on above: Hypertension, essent ial (Primary Dx); Permanent atrial fibrillation (HCC); Pulmonary hypertension (HCC); New onset type 2 diabetes mellitus (HCC); Stage 3a chronic kidney disease (HCC); Cerebrovascular accident (CVA), unspecified mechanism (HCC); SOB (shortness of breath) on exertion; Vitamin D deficiency; Dyslipidemia; Fatigue, unspecified type Start: 09-05-2024 End: 09-05-2024 ambulatory DIPAK AGUILAR Facility:[facility] Start: 08-31-2024 End: 10-31-2024 Follow-up encounter Ruma Chi AUDIO VISUAL EQUIPMENT RENTAL CLERK Work Phone: [facility] [place] Start: 08-22-2024 End: 08-22-2024 ambulatory RUMA CHI Facility:[facility] Start: 07-12-2024 End: 07-12-2024 ambulatory RUMA CHI Facility:[facility] Start: 07-02-2024 End: 07-02-2024 Patient encounter procedure Analisa Nicole MD Work Phone: Cardiology Comment on above: Permanent atrial fib rillation (HCC) [I48.21] (Primary Dx) Start: 07-02-2024 End: 07-02-2024 ambulatory ANALISA NICOLE Facility:[facility] Start: 06-28-2024 End: 06-28-2024 Office outpatient visit 25 minutes Elisa Garcia APRN.AUDIO VISUAL EQUIPMENT RENTAL CLERK Work Phone: [facility] [place] Comment on above: Hypertension, essent ial (Primary Dx); Permanent atrial fibrillation (HCC); New onset type 2 diabetes mellitus (HCC) Start: 06-28-2024 End: 06-28-2024 ambulatory DIPAK AGUILAR Facility:[facility] Start: 06-14-2024 End: 06-14-2024 ambulatory OMAR TREADWELL Facility:[facility] Start: 06-13-2024 End: 06-13-2024 ambulatory DIPAK AGUILAR Facility:[facility] Start: 06-08-2024 End: 06-08-2024 Telephone encounter Citlalli Arnold RN Pulmonary Medicine Comment on above: FILM FABIANO-JACKELINETER Start: 06-07-2024 End: 06-11-2024 Telephone encounter Dipak Aguilar DO Work Phone: [facility] [place] Comment on above: Patient Update Start: 05-31-2024 End: 05-31-2024 ambulatory Elisa Garcia APRN.CNP Work Phone: [facility] [place] Comment on above: medication clarifica tion please Start: 05-31-2024 End: 05-31-2024 Refill Analisa Nicole MD Work Phone: [facility] [place] Comment on above: Med Change Request Start: 05-30-2024 End: 05-30-2024 Office outpatient visit 25 minutes Elisa Garcia APRN.AUDIO VISUAL EQUIPMENT RENTAL CLERK Work Phone: [facility] [place] Comment on above: New onset type 2 bayron betes mellitus (HCC) (Primary Dx); Permanent atrial fibrillation (HCC); Hypertension, essential Start: 05-30-2024 End: 05-31-2024 Refill Analisa Nicole MD Work Phone: [facility] Card[facility] [place] Comment on above: Refill Request Start: 05-24-2024 End: 05-29-2024 Telephone encounter Dipak Aguilar DO Work Phone: [facility] [place] Comment on above: Patient Update Start: 05-21-2024 End: 05-22-2024 Telephone encounter Dipak Aguilar DO Work Phone: [facility] [place] Comment on above: Home Health Nursing- Plan of Care (And physical therapy plan of care/); Hypertension Start: 05-18-2024 End: 07-18-2024 Follow-up encounter Elisa Garcia APRN.AUDIO VISUAL EQUIPMENT RENTAL CLERK Work Phone: [facility] Start: 05-17-2024 End: 05-17-2024 Follow-up encounter Radha Berman APRN.AUDIO VISUAL EQUIPMENT RENTAL CLERK Work Phone: [facility] [place] Start: 05-17-2024 End: 05-17-2024 Telephone encounter Dipak Aguilar DO Work Phone: [facility] [place] Comment on above: Fax over last OV Not e Start: 05-17-2024 End: 05-17-2024 ambulatory DIPAK AGUILAR Facility:[facility] Start: 05-17-2024 End: 05-17-2024 Subsequent hospital visit by physician [facility] Work Phone: Radiology Comment on above: Hospital discharge f ollow-up [Z09] Start: 05-16-2024 End: 05-16-2024 ambulatory RADHA BERMAN Facility:[facility] Start: 05-16-2024 End: 05-16-2024 Office outpatient visit 40 minutes Radha Saultawanda SOLOMON.AUDIO VISUAL EQUIPMENT RENTAL CLERK Work Phone: Family [facility] [place] Comment on above: Hospital discharge f ollow-up (Primary Dx); Asthma-COPD overlap syndrome (HCC); Chronic respiratory failure with hypoxia (HCC); Decreased activities of daily living (ADL); Bilateral leg edema; Confusion; Cerebrovascular accident (CVA), unspecified mechanism (HCC); Poor mobility; Unsteady gait Start: 02-06-2024 End: 02-08-2024 Refill Analisa Nicole MD Work Phone: [facility] [place] Comment on above: Refill Request Start: 01-31-2024 End: 01-31-2024 Telephone encounter Analisa Nicole MD Work Phone: Cardiology Start: 01-24-2024 End: 01-24-2024 Patient encounter procedure [facility] Provider [facility] Department Start: 01-09-2024 End: 01-10-2024 Telephone encounter Dipak Aguilar DO Work Phone: [facility] [place] Comment on above: Medication Problem Start: 01-04-2024 End: 01-04-2024 Patient encounter procedure [facility] Provider [facility] Department Start: 01-04-2024 End: 01-04-2024 Telephone encounter Analisa Nicole MD Work Phone: [facility] Cardiology [place] Comment on above: Cardiac Clearance Start: 12-13-2023 End: 12-13-2023 Telephone encounter Elisa Garcia APRN.AUDIO VISUAL EQUIPMENT RENTAL CLERK Work Phone: [facility] [place] Comment on above: Results; Appointment Start: 12-12-2023 End: 12-12-2023 Telephone encounter Analisa Nicole MD Work Phone: Cardiology Start: 12-12-2023 End: 12-12-2023 Nursing evaluation of patient and report Nurse Card Admin [facility] Work Phone: Cardiology Comment on above: Screening for ischem ic heart disease (Primary Dx) Start: 12-12-2023 End: 12-12-2023 Subsequent hospital visit by physician [facility] Work Phone: Nuclear Medicine Start: 12-06-2023 End: 12-06-2023 Telephone encounter Dipak Aguilar DO Work Phone: [facility] [place] Start: 12-05-2023 End: 12-05-2023 ambulatory Pulm Lab [facility] Work Phone: PULM LAB [facility] Comment on above: Spirometry Start: 12-05-2023 End: 12-05-2023 Patient encounter procedure Pulm Lab [facility] Work Phone: PULM LAB [facility] Start: 12-05-2023 End: 12-05-2023 Subsequent hospital visit by physician [facility] ([facility]) Work Phone: Cat Scan Comment on above: Wheezing [R06.2] Start: 11-29-2023 End: 11-29-2023 Patient encounter procedure Elisa Garcia APRN.AUDIO VISUAL EQUIPMENT RENTAL CLERK Work Phone: [facility] [place] Comment on above: Medicare annual well ness visit, subsequent (Primary Dx); Wheezing; Asthma-COPD overlap syndrome (HCC); SOB (shortness of breath) on exertion; Decreased activity tolerance; Productive cough; Screening for depression; Encounter for immunization; Encounter for screening examination for other mental health and behavioral disorders Start: 11-28-2023 End: 11-28-2023 ambulatory Nurse Card Admin [facility] Work Phone: Cardiology Comment on above: Stress Test Instruct ions for 12/05/23 Start: 11-28-2023 End: 11-28-2023 E-mail encounter from caregiver Nurse Card Admin [facility] Work Phone: Cardiology Start: 11-23-2023 End: 11-23-2023 Office outpatient new 45 minutes Jeffrey Hdz MD Work Phone: Orthopaedics Comment on above: Lumbar spondylosis ( Primary Dx) Start: 11-23-2023 ambulatory DIPAK Oliva it:[facility] Start: 11-23-2023 End: 11-23-2023 Subsequent hospital visit by physician [employer] [facility] Work Phone: Radiology Comment on above: Bilateral hip pain [ M25.551, M25.552] Start: 11-14-2023 End: 11-16-2023 Refill Analisa Nicole MD Work Phone: [facility] Cardiology [place] Comment on above: Refill Request Start: 11-10-2023 End: 11-10-2023 Orders Only Jeffrey Hdz MD Work Phone: Orthopaedics Comment on above: Bilateral hip pain ( Primary Dx) Start: 11-02-2023 End: 11-03-2023 Telephone encounter Dipak Aguilar DO Work Phone: [facility] [place] Start: 11-01-2023 End: 11-01-2023 Refill Wes Mcintosh MD Work Phone: [facility] [place] Comment on above: Refill Request Start: 10-04-2023 Telephone encounter Dipak upton DO Work Phone: [facility] [place] Start: 09-30-2023 ambulatory Facility:[facility] Start: 09-28-2023 Telephone encounter Analisa Nicole MD Work Phone: Cardiology Comment on above: Results Start: 09-12-2023 End: 09-12-2023 Patient encounter procedure Analisa Nicole MD Work Phone: Cardiology Comment on above: Screening for ischem ic heart disease (Primary Dx); Shortness of breath; Permanent atrial fibrillation (HCC) Start: 06-24-2023 End: 06-24-2023 Patient encounter procedure Aj Issa MD Work Phone: [facility] Comment on above: Bladder neck strictu re (Primary Dx); ED (erectile dysfunction) of organic origin Start: 06-24-2023 End: 06-24-2023 ambulatory AJ SISA Facility:[facility] Start: 05-17-2023 Refill Aj Issa MD Work Phone: [facility] Comment on above: Refill Request Start: 05-02-2023 ambulatory Mini Saldaña RN Amb [facility] Care [facility] Comment on above: ACM HERMINIO RN ( EDU per request of payor) Start: 11-19-2022 Telephone encounter Radha Saul tawanda REACHER.AUDIO VISUAL EQUIPMENT RENTAL CLERK Work Phone: [facility] [place] Comment on above: Results Start: 11-01-2022 Refill Wes Mcintosh MD Work Phone: Cardiology Comment on above: Refill Request Start: 10-26-2022 End: 10-26-2022 Nursing evaluation of patient and report Nurse Urol Marcy Work Phone: [facility] Comment on above: BPH with obstruction /lower urinary tract symptoms (Primary Dx) Start: 10-20-2022 Preprocedural examination done Aj Issa MD Work Phone: [facility] Work Phone: Start: 10-20-2022 Telephone encounter Aj Issa MD Work Phone: [facility] Comment on above: Physical Integration Practitioner - H ospital Follow Up Start: 10-19-2022 End: 10-19-2022 Patient encounter procedure Aj Issa MD Work Phone: [facility] Comment on above: Weak urinary stream (Primary Dx); Bladder neck stricture; Frequency of micturition Start: 10-14-2022 Telephone encounter Dipak upton DO Work Phone: [facility] [place] Comment on above: requesting a GI refe rral Start: 10-12-2022 End: 10-12-2022 Patient encounter procedure Beata Watkins REACHER.AUDIO VISUAL EQUIPMENT RENTAL CLERK Work Phone: [facility] Comment on above: Weak urinary stream (Primary Dx); Incomplete bladder emptying; Bladder neck stricture; Poor urinary stream; Nocturia Start: 09-29-2022 Telephone encounter Dipak upton DO Work Phone: [facility] [place] Comment on above: Medication Problem Start: 08-31-2022 End: 08-31-2022 Patient encounter procedure Wes Mcintosh MD Work Phone: Cardiology Comment on above: Permanent atrial fib rillation (HCC) (Primary Dx) Start: 08-20-2022 Telephone encounter Aj Issa MD Work Phone: [facility] Comment on above: Results Start: 08-17-2022 End: 08-17-2022 Patient encounter procedure Aj Issa MD Work Phone: [facility] Comment on above: Bladder neck strictu re (Primary Dx); Nocturia; Urinary incontinence, unspecified type Start: 08-09-2022 End: 08-09-2022 Nursing evaluation of patient and report Nurse Urol Marcy Work Phone: [facility] Comment on above: BPH with obstruction /lower urinary tract symptoms (Primary Dx) Start: 08-05-2022 Telephone encounter Aj Issa MD Work Phone: [place] [facility] Comment on above: Physical Integration Practitioner - H ospital Follow Up Start: 07-29-2022 Preprocedural examination done Aj Issa MD Work Phone: [facility] Work Phone: Start: 07-26-2022 End: 07-26-2022 Patient encounter procedure Crystal Pradhan APRN.AUDIO VISUAL EQUIPMENT RENTAL CLERK Work Phone: [facility] Comment on above: Preoperative clearan ce (Primary Dx); Asthma-COPD overlap syndrome (HCC); Atrial fibrillation, unspecified type (HCC) Start: 07-26-2022 End: 07-26-2022 Preoperative state Crystal Pradhan APRN.AUDIO VISUAL EQUIPMENT RENTAL CLERK Work Phone: [facility] [place] Start: 07-22-2022 Telephone encounter Aj Issa MD Work Phone: [facility] Comment on above: Surgery Scheduled Start: 07-21-2022 Telephone encounter Dipak upton DO Work Phone: [facility] [place] Comment on above: medical clearance fo rm Start: 07-20-2022 End: 07-20-2022 Patient encounter procedure Aj Issa MD Work Phone: [facility] Comment on above: BPH with obstruction [...] encounter procedure Aj Issa MD Work Phone: [facility] Comment on above: BPH with obstruction /lower urinary tract symptoms (Primary Dx); Nocturia; Poor urinary stream; Frequency of micturition; Incomplete bladder emptying Start: 12-28-2021 Telephone encounter Wes Booth MD Work Phone: Cardiology Comment on above: Patient Update Start: 12-08-2021 End: 12-08-2021 Patient encounter procedure Korin Araiza APRN.CNP Work Phone: [facility] Comment on above: Skin lesion (Primary Dx) Start: 12-07-2021 Telephone encounter Dipak upton DO Work Phone: [facility] [place] Comment on above: Results Start: 12-01-2021 End: 12-01-2021 Nursing evaluation of patient and report Mi Nurse Work Phone: [facility] [place] Comment on above: Need for vaccination (Primary Dx) Start: 09-30-2021 Telephone encounter Wes Booth MD Work Phone: Cardiology Comment on above: Forms Start: 08-07-2021 ambulatory No Pcp Gisell Vail [facility] Start: 10-13-2020 End: 10-13-2020 Subsequent hospital visit by physician Kendra [facility] Work Phone: Radiology Comment on above: Knee injury, right, initial encounter [S89.91XA] Start: 09-26-2019 Patient encounter status [facility] Start: 11-01-2017 End: 11-01-2017 Patient encounter AJ ISSA Facility:[facility] Procedures Date Procedure Procedure Detail Performing Clinician Start: 11-22-[address] Dipak Aguilar DO Work Phone: Start: 11-21-[address] Dipak Aguilar DO Work Phone: Start: 11-21-2024 Mean corpuscular hem oglobin concentration determination Dr. Dipak Aguilar DO Work Phone: Start: 11-21-[address] Shellie Aguilar DO Work Phone: Start: 11-21-2024 Nucleated red blood cell count procedure Dr. Dipak Aguilar DO Work Phone: Start: 11-21-2024 Platelet mean volume determination Dr. Dipak Aguilar DO Work Phone: Start: 11-14-2024 Blood count smear mc rscp w/mnl difrntl wbc count Dr. Dipak Aguilar DO Work Phone: Start: 11-14-[address] Dipak Aguilar DO Work Phone: Start: 11-14-2024 Mean corpuscular hem oglobin concentration determination Dr. Dipak Aguilar DO Work Phone: Start: 11-14-2024 Nucleated red blood cell count procedure Dr. Dipak Aguilar DO Work Phone: Start: 11-14-2024 Platelet mean volume determination Dr. Dipak Aguilar DO Work Phone: Start: 11-11-2024 Radiologic exam ches t [address] Dipak Aguilar DO Work Phone: Start: 11-10-2024 Blood count smear mc rscp w/mnl difrntl wbc count Dr. Dipak Aguilar DO Work Phone: Start: 11-10-[address] Dipak Aguilar DO Work Phone: Start: 11-10-2024 Mean corpuscular hem oglobin concentration determination Dr. Dipak Aguilar DO Work Phone: Start: 11-10-[address] Shellie Aguilar DO Work Phone: Start: 11-10-2024 Nucleated red blood cell count procedure Dr. Dipak Aguilar DO Work Phone: Start: 11-10-2024 Platelet mean volume determination Dr. Dipak Aguilar DO Work Phone: Start: 11-08-[address] Dipak Aguilar DO Work Phone: Start: 11-08-2024 Total cholesterol:HD L ratio measurement Dr. Dipak Aguilar DO Work Phone: Start: 11-08-[address] Dipak Aguilar DO Work Phone: Start: 11-05-2024 Blood count smear mc rscp [...] Dipak Aguilar DO Work Phone: Start: 11-05-[address] Shellie Aguilar DO Work Phone: Start: 11-05-2024 Neutrophil percent differential count Dr. Dipak Aguilar DO [...] Aguilar DO Work Phone: Start: 11-02-[address] Dipak Aguilar DO Work Phone: Start: 11-02-2024 Plain chest X-ray Dr. Teresa Aguilar DO Work Phone: Start: 11-02-2024 Gram stain microscopy Josefa Aguilar DO Work Phone: Start: 11-02-2024 Respiratory [...] Work Phone: Start: 10-29-2024 Gram stain microscopy Josefa Aguilar DO Work Phone: Start: 10-29-2024 End: [...] Dr. Shellie Aguilar DO Work Phone: Start: 10-27-[address] Dipak Aguilar DO Work Phone: Start: 10-26-2024 CT [...] S TAPLES NOT REQUIRING ANESTHESIA Vikki Albrecht REACHER.AUDIO VISUAL EQUIPMENT RENTAL CLERK Work Phone: Start: 09-17-2024 REMOVAL SUTURES OR S TAPLES NOT REQUIRING ANESTHESIA Vikki Albrecht REACHER.AUDIO VISUAL EQUIPMENT RENTAL CLERK Work Phone: Start: 09-11-2024 X-ray of knee, four or more views Dr. Dipak Aguilar DO Work Phone: Start: 09-11-2024 CT of head without contrast Dr. Dipak Aguilar DO Work Phone: Start: 05-17-2024 Dup-scan xtr veins c omplete bilateral study Radha Berman REACHER.AUDIO VISUAL EQUIPMENT RENTAL CLERK Work Phone: Start: 12-12-2023 Myocardial spect mul tiple studies Analisa Nicole MD Work Phone: Start: 12-05-2023 Plethysmography lung volumes w/wo airway resist Elisa Garcia REACHER.AUDIO VISUAL EQUIPMENT RENTAL CLERK Work Phone: Start: 11-29-2023 Adult depression scr eening assessment Elisa Garcia REACHER.AUDIO VISUAL EQUIPMENT RENTAL CLERK Work Phone: Start: 11-23-2023 Radex spine lumbosac [...] et rgnt auto w/o microscopy Beata Watkins REACHER.AUDIO VISUAL EQUIPMENT RENTAL CLERK Work Phone: Start: 08-17-2022 Maritza post-voiding re sidual urine&/bladder cap Aj Issa MD Work Phone: Start: 08-17-2022 Culture bacterial quanttative colony count urine Aj Issa MD Work Phone: Start: 07-26-2022 Ecg routine ecg w/le ast 12 lds i&r only [facility] Provider Start: 07-20-2022 Urnls dip stick/tabl et rgnt auto w/o microscopy Aj Issa MD Work Phone: Start: 12-01-2021 [employer] COVI D-19 BIVALENT BOOSTER VACCINE, AGE 12+ YR Dipak Aguilar DO Work Phone: Start: 10-13-2020 Radiologic exam ches t 2 views Wes Chavez REACHER.AUDIO VISUAL EQUIPMENT RENTAL CLERK Work Phone: Start: 10-13-2020 Radiologic exam knee complete 4/more views Wes Chavez REACHER.AUDIO VISUAL EQUIPMENT RENTAL CLERK Work Phone: Plan of Treatment Date Care Activity Detail Author Start: 05-17-2027 Diabetes Screening Diabetes Screening [facility] Start: 11-03-2026 Diabetes Screening Diabetes Screening [facility] Start: 11-18-2025 Diabetes Screening Diabetes Screening [facility] Start: 09-30-2025 End: 09-30-2025 Patient encounter procedure 09/30/2025 2:00 PM EDT Office Visit [facility] [address] [place] [address] Aj Issa MD [address] [place] [address] 12 months [facility] Comment on above: 12 months Start: 09-05-2025 Diabetic foot examination Diabetic Foot Exam [facility] Start: 07-29-2025 DIABETES SCREEN DIABETES SCREEN [facility] Start: 05-16-2025 Hepatitis B surface antibody level LDL Cholesterol [facility] Start: 02-22-2025 Hemoglobin A1c measurement HbA1C [facility] Start: 02-11-2025 End: 02-11-2025 Patient encounter procedure 02/11/2025 9:00 AM EST Office Visit Cardiology [address] [place] [address] Analisa Nicole MD [address], [address] [place] [address] 6 month follow up Cardiology Comment on above: 6 month follow up Start: 12-24-2024 End: 12-24-2024 Patient encounter procedure 12/24/2024 3:00 PM EST Office Visit [facility] [address] [facility] [place] [address] Dipak Aguilar DO [address] [place] [address] 4 month follow up [facility] Comment on above: 4 month follow up Start: 11-28-2024 Anxiety Screening Anxiety Screening [facility] Start: 11-28-2024 Depression Screening Depression Screening [facility] Start: 11-28-2024 Urine microalbumin profile DTaP,Tdap,Td Vaccine (1 - Tdap) [facility] Comment on above: Postponed from 11/12/2017 (Declined at t his time) Start: 11-22-2024 Patient discharge [facility] Start: 11-21-2024 Development of care plan [facility] Start: 11-21-2024 Speech therapy management [facility] Start: 11-20-2024 Referral to service [facility] Start: 11-20-2024 Application of elastic bandage [facility] Start: 11-19-2024 Oxygen therapy [facility] Start: 11-16-2024 DIABETES SCREEN DIABETES SCREEN [facility] Start: 11-16-2024 [facility] Start: 11-14-2024 Consultation [facility] Start: 11-13-2024 Following clinical pathway protocol [facility] Start: 11-11-2024 Following clinical pathway protocol [facility] Start: 11-10-2024 [facility] Start: 11-09-2024 Provision of activity privileges [facility] Start: 11-09-2024 [facility] Start: 11-07-2024 Development of care plan [facility] Start: 11-07-2024 Speech therapy management [facility] Start: 11-07-2024 [facility] Start: 11-07-2024 Developing a treatment plan [facility] Start: 11-07-2024 [facility] Start: 11-06-2024 End: 11-07-2024 Patient referral to dietitian [facility] Start: 11-06-2024 Verification routine [facility] Start: 11-06-2024 End: 11-06-2024 Contact precautions [facility] Start: 11-06-2024 Admission procedure [facility] Start: 11-06-2024 Measuring intake and output [facility] Start: 11-06-2024 Referral for physical therapy [facility] Start: 11-06-2024 Referral to occupational therapist [facility] Start: 11-06-2024 Vital signs measurements [facility] Start: 11-06-2024 [facility] Start: 11-06-2024 Speech therapy assessment [facility] Start: 11-06-2024 Patient discharge [facility] Start: 11-06-2024 Maintenance of drainage tube [facility] Start: 11-03-2024 [facility] Start: 11-02-2024 Continuous pulse oximetry [facility] Start: 11-02-2024 Dual pressure spontaneous ventilation support [facility] Start: 11-02-2024 Inhalation therapy procedure [facility] Start: 10-31-2024 Care planning and problem solving actions [facility] Start: 10-31-2024 [facility] Start: 10-31-2024 Consultation [facility] Start: 10-31-2024 Referral to portable irrigation operator [facility] Start: 10-31-2024 Care planning and problem solving actions [facility] Start: 10-30-2024 Care planning and problem solving actions [facility] Start: 10-29-2024 Consultation [facility] Start: 10-29-2024 Speech therapy assessment [facility] Start: 10-29-2024 Vital signs measurements [facility] Start: 10-28-2024 End: 10-28-2024 [facility] Start: 10-28-2024 Percutaneous transhepatic insertion of biliary drain [facility] Start: 10-28-2024 [facility] Start: 10-27-2024 Application of intermittent pneumatic compression device [facility] Start: 10-27-2024 Following clinical pathway protocol [facility] Start: 10-27-2024 Aspiration precautions [facility] Start: 10-27-2024 Assessment of risk of venous thromboembolism [facility] Start: 10-27-2024 Care regimes management [facility] Start: 10-27-2024 Elevation of head of bed [facility] Start: 10-27-2024 Fall prevention [facility] Start: 10-27-2024 Insertion of catheter into peripheral vein [facility] Start: 10-27-2024 Introduction of urinary catheter [facility] Start: 10-27-2024 Measuring intake and output [facility] Start: 10-27-2024 Methicillin resistant Staphylococcus aureus screening test [facility] Start: 10-27-2024 Notification of physician [facility] Start: 10-27-2024 Oxygen therapy [facility] Start: 10-27-2024 Patient education [facility] Start: 10-27-2024 End: 10-27-2024 Patient referral to dietitian [facility] Start: 10-27-2024 Providing care according to standard [facility] Start: 10-27-2024 Provision of activity privileges [facility] Start: 10-27-2024 Referral for physical therapy [facility] Start: 10-27-2024 Referral to general surgeon [facility] Start: 10-27-2024 Referral to occupational therapist [facility] Start: 10-27-2024 Referral to service [facility] Start: 10-27-2024 Vital signs measurements [facility] Start: 10-27-2024 End: 10-27-2024 [facility] Start: 10-27-2024 Legionella pneumophila Ag [Presence] in Urine [facility] Start: 10-27-2024 Respiratory pathogens DNA and RNA panel - Respiratory specimen by ELOY with probe detection [facility] Start: 10-27-2024 Serum inorganic phosphate measurement [facility] Start: 10-27-2024 Streptococcus pneumoniae antigen assay [facility] Start: 10-27-2024 Verification routine [facility] Start: 10-26-2024 Admission procedure [facility] Start: 10-26-2024 Hospital admission, emergency, from emergency room, medical nature [facility] Start: 10-26-2024 [facility] Start: 10-22-2024 Influenza vaccination Influenza Vaccine (#1) [facility] Start: 10-14-2024 [facility] Start: 09-25-2024 End: 09-25-2024 Patient encounter procedure [facility] Comment on above: 12 months (resched from 06/25) Yearly- Need updated medication list Start: 09-21-2024 End: 09-21-2024 Patient encounter procedure 09/21/2024 8:40 AM EDT Office Visit [facility] [address] [place] [address] Vikki Albrecht, REACHER.AUDIO VISUAL EQUIPMENT RENTAL CLERK [address] [place] [address] stitch removal on hand(done at [facility] 09/11/24) Family [facility] Comment on above: stitch removal on hand(done at [facility] ) Start: 09-17-2024 End: 09-17-2024 Patient encounter procedure 09/17/2024 8:20 AM EDT Office Visit [facility] [address] [place] [address] Vikki Albrecht, REACHER.AUDIO VISUAL EQUIPMENT RENTAL CLERK [address] [place] [address] [facility] 09/11/24 f/u-pt fell- stitch removal by eye [facility] Comment on above: [facility] 09/11/24 f/u-pt fell- stitch remov al by eye Start: 09-11-2024 Simple repair f/e/e/n/l/m 2.5cm/< [facility] Start: 09-11-2024 Smpl repair scalp/neck/ax/genit/trunk 2.6-7.5cm [facility] Start: 09-11-2024 [facility] Start: 09-10-2024 End: 09-10-2024 Patient encounter procedure 09/10/2024 11:00 AM EDT Office Visit Neurology [address] [place], [place] [id number] Elaine Jiang Jr., MD [address] [place], [place] [phone] Hospital discharge follow-up [Z09] Neurology Comment on above: Hospital discharge follow-up [Z09] Start: 09-07-2024 End: 09-07-2024 Patient encounter procedure 09/07/2024 1:50 PM EDT Office Visit Cardiology [address] [place], [place] [phone] Permanent atrial fibrillation (HCC) [I48.21]; Hypertension, essential [I10]; Pulmonary hypertension (HCC) [I27.20] Cardiology Comment on above: Permanent atrial fibrillation (HCC) [I48 .21]; Hypertension, essential [I10]; Pulmonary hypertension (HCC) [I27.20] Start: 09-05-2024 End: 09-05-2024 Patient encounter procedure 09/05/2024 12:00 PM EDT Office Visit Family Medicine [address] [place], [place] [phone] Dipak Aguilar DO [address] [place], [place] [phone] 3 mo follow up Family [facility] Comment on above: 3 mo follow up Start: 07-12-2024 End: 07-12-2024 Patient encounter procedure 07/12/2024 3:20 PM EDT Office Visit Family [facility] [address] [place], [place] [phone] Ruma Chi APRN.AUDIO VISUAL EQUIPMENT RENTAL CLERK [address] [place], [place] [phone] 2 week follow up Family [facility] Comment on above: 2 week follow up Start: 07-02-2024 End: 07-02-2024 Patient encounter procedure Cardiology Comment on above: 1yr Start: 06-25-2024 End: 06-25-2024 Patient encounter procedure [facility] Comment on above: 12 months 12/28 lvm need to r/ s Dr. Issa Lung nodule [R91.1] Start: 06-14-2024 End: 06-14-2024 Patient encounter procedure 06/14/2024 1:30 PM EDT Office Visit Pulmonary Medicine [address] [place] [address] Omar Treadwell APRN.AUDIO VISUAL EQUIPMENT RENTAL CLERK [address] [place] [address] Lung nodule [R91.1] Pulmonary Medicine Comment on above: Lung nodule [R91.1] Start: 06-13-2024 End: 06-13-2024 Patient encounter procedure 06/13/2024 3:40 PM EDT Office Visit [facility] [address] [place] [address] Elisa Garcia, REACHER.AUDIO VISUAL EQUIPMENT RENTAL CLERK [address] [place], [place] [phone] week bp check [facility] Comment on above: 2 week bp check Start: 05-30-2024 End: 05-30-2024 Patient encounter procedure 05/30/2024 2:40 PM EDT Office Visit [facility] [address] [place] [address] Elisa Garcia, REACHER.AUDIO VISUAL EQUIPMENT RENTAL CLERK [address] [place] [address] 2 wk follow up (diuretics) [facility] Comment on above: 2 wk follow up (diuretics) Start: 05-17-2024 End: 05-17-2024 Patient encounter procedure 05/17/2024 8:30 AM EDT Appointment Radiology [address] [place], [place] [address] Hospital discharge follow-up [Z09] Radiology Comment on above: Hospital discharge follow-up [Z09] Start: 05-16-2024 End: 08-15-2024 Comprehensive metabolic 2000 panel - Serum or Plasma [facility] Work Phone: Comment on above: Expected: 05/16/2024, Expires: Start: 05-16-2024 End: 08-15-2024 Lipid 1996 panel - Serum or Plasma [facility] Comment on above: Expected: 05/16/2024, Expires: Start: 05-16-2024 End: 08-15-2024 Natriuretic peptide.B prohormone N-Terminal [Mass/volume] in Serum or Plasma [facility] Comment on above: Expected: 05/16/2024, Expires: Start: 05-16-2024 End: 08-15-2024 Thyrotropin [Units/volume] in Serum or Plasma [facility] Comment on above: Expected: 05/16/2024, Expires: Start: 04-28-2024 Covid-19 Vaccine () Covid-19 Vaccine () [facility] Start: 02-22-2024 Advance Directive Discussion Advance Directive Discussion [facility] Start: 02-22-2024 Medicare Advantage Annual Wellness Visit Medicare Advantage Annual Wellness Visit [facility] Start: 12-12-2023 End: 12-12-2023 Nursing evaluation of patient and report 12/12/2023 11:20 AM EDT Nurse Visit Cardiology [address] [place] [phone] Wstr, Nurse Card Admin [facility] [address] [place] [id number] Shortness of breath [R06.02] Cardiology Comment on above: Shortness of breath [R06.02] Start: 12-12-2023 End: 12-12-2023 Patient encounter procedure Nuclear Medicine Comment on above: Shortness of breath [R06.02] Start: 12-05-2023 End: 12-05-2023 ambulatory PULM LAB [facility] Comment on above: Wheezing [R06.2]; 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]; SOB (shortness of breath) on exertion [R06.02]; Decreased activity tolerance [R68.89]; Productive cough [R05.8] Start: 12-05-2023 End: 12-05-2023 Nursing evaluation of patient and report 12/05/2023 8:15 AM EDT Nurse Visit [facility] [address] [facility] [place] [phone] Wstr, Nurse Card Admin [facility] [address] [place], [place] [phone] Shortness of breath [R06.02] Cardiology Comment on above: Shortness of breath [R06.02] Start: 12-05-2023 End: 12-05-2023 Patient encounter procedure Nuclear Medicine Comment on above: Shortness of breath [R06.02] Wheezing [R06.2]; As thma-COPD overlap syndrome (HCC) [J44.89]; SOB (shortness of breath) on exertion [R06.02]; Decreased activity tolerance [R68.89]; Productive cough [R05.8] Start: 11-29-2023 End: 11-29-2023 Patient encounter procedure 11/29/2023 7:00 AM EDT Office Visit [facility] [address] [place], [place] [phone] Elisa Garcia APRN.AUDIO VISUAL EQUIPMENT RENTAL CLERK [address] [place], [place] [phone] annual check up [facility] Comment on above: annual check up Start: 11-23-2023 End: 11-23-2023 Patient encounter procedure Orthopaedics Comment on above: kelley hip pain (both hips replaced in past outside of [facility]) b hip Start: 11-18-2023 Covid-19 Vaccine (6 - Pfizer series) Covid-19 Vaccine (6 - Pfizer series) [facility] Comment on above: Postponed from 04/03/2022 (Declined at t his time) Start: 11-18-2023 Urine microalbumin profile DTaP,Tdap,Td Vaccine (1 - Tdap) [facility] Comment on above: Postponed from 11/12/2017 (Declined at t his time) Start: 11-14-2023 DIABETES SCREEN DIABETES SCREEN [facility] Start: 11-02-2023 End: 02-01-2024 25-hydroxyvitamin D3 [Mass/volume] in Serum or Plasma VITAMIN D 25 HYDROXY Lab Routine Fatigue, unspecified type Atrial fibrillation, unspecified type (HCC) Vitamin D deficiency Expected: 11/02/2023, Expires: 02/01/2024 [facility] Comment on above: Expected: 11/02/2023, Expires: Start: 11-02-2023 End: 02-01-2024 CBC W Auto Differential panel - Blood COMPLETE BLOOD COUNT AND DIFFERENTIAL Lab Routine Fatigue, unspecified type Atrial fibrillation, unspecified type (HCC) Dyslipidemia Expected: 11/02/2023, Expires: 02/01/2024 [facility] Work Phone: Comment on above: Expected: 11/02/2023, Expires: 4 Start: 11-02-2023 End: 02-01-2024 Cobalamin (Vitamin B12) [Mass/volume] in Serum or Plasma VITAMIN B12 Lab Routine Fatigue, unspecified type Atrial fibrillation, unspecified type (HCC) Expected: 11/02/2023, Expires: 02/01/2024 [facility] Comment on above: Expected: 11/02/2023, Expires: Start: 11-02-2023 End: 02-01-2024 Comprehensive metabolic 2000 panel - Serum or Plasma COMPREHENSIVE METABOLIC PANEL Lab Routine Atrial fibrillation, unspecified type (HCC) Expected: 11/02/2023, Expires: 02/01/2024 [facility] Comment on above: Expected: 11/02/2023, Expires: Start: 11-02-2023 End: 02-01-2024 Hemoglobin A1c in Blood HEMOGLOBIN A1C Lab Routine Atrial fibrillation, unspecified type (HCC) Hyperglycemia Expected: 11/02/2023, Expires: 02/01/2024 [facility] Comment on above: Expected: 11/02/2023, Expires: 4 Start: 11-02-2023 End: 02-01-2024 Iron and Iron binding capacity panel - Serum or Plasma IRON AND TIBC Lab Routine Fatigue, unspecified type Atrial fibrillation, unspecified type (HCC) Expected: 11/02/2023, Expires: 02/01/2024 [facility] Comment on above: Expected: 11/02/2023, Expires: Start: 11-02-2023 End: 02-01-2024 Lipid 1996 panel - Serum or Plasma LIPID PANEL BASIC Lab Routine Atrial fibrillation, unspecified type (HCC) Dyslipidemia Expected: 11/02/2023, Expires: 02/01/2024 [facility] Comment on above: Expected: 11/02/2023, Expires: Start: 11-02-2023 End: 02-01-2024 Magnesium [Mass/volume] in Serum or Plasma MAGNESIUM Lab Routine Fatigue, unspecified type Atrial fibrillation, unspecified type (HCC) Expected: 11/02/2023, Expires: 02/01/2024 [facility] Comment on above: Expected: 11/02/2023, Expires: 4 Start: 11-02-2023 End: 02-01-2024 PSA/PROSTATE SPECIFIC ANTIGEN SCREENING PSA/PROSTATE SPECIFIC ANTIGEN SCREENING Lab Routine BPH with obstruction/lower urinary tract symptoms Screening for prostate cancer Expected: 11/02/2023, Expires: 02/01/2024 [facility] Comment on above: Expected: 11/02/2023, Expires: Start: 11-02-2023 End: 02-01-2024 Thyrotropin [Units/volume] in Serum or Plasma THYROID STIMULATING HORMONE Lab Routine Fatigue, unspecified type Atrial fibrillation, unspecified type (HCC) Expected: 11/02/2023, Expires: 02/01/2024 [facility] Comment on above: Expected: 11/02/2023, Expires: Start: 11-02-2023 End: 02-01-2024 Thyroxine (T4) free [Mass/volume] in Serum or Plasma T4 FREE/FREE THYROXINE Lab Routine Fatigue, unspecified type Atrial fibrillation, unspecified type (HCC) Expected: 11/02/2023, Expires: 02/01/2024 [facility] Comment on above: Expected: 11/02/2023, Expires: Start: 11-01-2023 End: 01-31-2024 CBC W Auto Differential panel - Blood COMPLETE BLOOD COUNT AND DIFFERENTIAL Lab Routine Permanent atrial fibrillation (HCC) Expected: 11/01/2023, Expires: 01/31/2024 [facility] Work Phone: Comment on above: Expected: 11/01/2023, Expires: Start: 10-23-2023 [facility] Start: 09-26-2023 End: 09-11-2024 Echocardiography ECHO Cardiology Routine Shortness of breath Expected: 09/26/2023, Expires: 09/11/2024 [facility] Comment on above: Expected: 09/26/2023, Expires: Start: 09-26-2023 End: 10-11-2024 NM Heart Perfusion W multiple states of exercise NM CARDIAC PERF STRESS/EXERCISE Radiology Routine Shortness of breath Expected: 09/26/2023, Expires: 10/11/2024 [facility] Comment on above: Expected: 09/26/2023, Expires: Start: 09-26-2023 End: 09-26-2023 Patient encounter procedure 09/26/2023 11:20 AM EDT Office Visit Cardiology [address] [place] [address] Shortness of breath [R06.02] Cardiology Comment on above: Shortness of breath [R06.02] Start: 09-12-2023 End: 09-07-2024 ECG COMPLETE [facility] Work Phone: Comment on above: Expected: 09/12/2023, Expires: Start: 09-12-2023 End: 09-12-2023 Patient encounter procedure 09/12/2023 10:40 AM EDT Office Visit Cardiology [address] [place] [address] Analisa Nicole MD [address], [address] [place] [address] est care/ transfer from Dr. Mcintosh Cardiology Comment on above: est care/ transfer from Dr. Mcintosh Start: 02-21-2023 Advance Directive Discussion Advance Directive Discussion [facility] Start: 02-21-2023 Behavioral Health Screening Behavioral Health Screening [facility] Start: 02-21-2023 Depression Assessment Depression Assessment [facility] Start: 10-22-2022 Influenza vaccination INFLUENZA (#1) [facility] Start: 04-03-2022 COVID-19 VACCINE (6 - Pfizer series) COVID-19 VACCINE (6 - Pfizer series) [facility] Start: 02-21-2022 ADVANCE DIRECTIVE DISCUSSION ADVANCE DIRECTIVE DISCUSSION [facility] Start: 02-21-2022 DEPRESSION ASSESSMENT DEPRESSION ASSESSMENT [facility] Start: 10-22-2021 Influenza vaccination INFLUENZA (#1) [facility] Start: 03-19-2021 COVID-19 VACCINE (4 - Booster for Pfizer series) COVID-19 VACCINE (4 - Booster for Pfizer series) [facility] Start: 02-21-2021 ADVANCE DIRECTIVE DISCUSSION ADVANCE DIRECTIVE DISCUSSION [facility] Start: 02-21-2021 DEPRESSION ASSESSMENT DEPRESSION ASSESSMENT [facility] Start: 03-02-2019 SHINGRIX VACCINE (2 of 2) SHINGRIX VACCINE (2 of 2) [facility] Start: 11-12-2017 Urine microalbumin profile [facility] Start: 1954 Anxiety Screening Anxiety Screening [facility] Start: 1954 Depression Screening Depression Screening [facility] Start: 1946 Diabetic foot examination Diabetic Foot Exam [facility] Start: 1946 Glaucoma screening Dilated Retinal Exam [facility] Start: 1946 Hepatitis B screening Urine Albumin:Creatinine Ratio [facility] Anion gap in Serum o r Plasma [facility] Anion gap in Serum o r Plasma [facility] Anion gap in Serum o r Plasma [facility] Bacteria identified in Urine by Culture URINE CULTURE Microbiology Routine Poor urinary stream Ordered: 07/20/2022 [facility] Work Phone: Comment on above: Ordered: 07/20/2022 Bacteria identified in Urine by Culture URINE CULTURE Microbiology Routine Urinary incontinence, unspecified type 08/17/2022 10:50 AM EDT [facility] Work Phone: Bacteria identified in Urine by Culture URINE CULTURE Microbiology Routine Weak urinary stream 10/12/2022 12:50 PM EDT [facility] Work Phone: BUN/Creatinine ratio [facility] BUN/Creatinine ratio [facility] BUN/Creatinine ratio [facility] Calcium [Mass/volume ] in Serum or Plasma [facility] Calcium [Mass/volume ] in Serum or Plasma [facility] Calcium [Mass/volume ] in Serum or Plasma [facility] Carbon dioxide, tota l [Moles/volume] in Central venous blood [facility] Carbon dioxide, tota l [Moles/volume] in Central venous blood [facility] Carbon dioxide, tota l [Moles/volume] in Central venous blood [facility] Creatinine [Mass/vol ume] in Serum or Plasma [facility] Creatinine [Mass/vol ume] in Serum or Plasma [facility] Creatinine [Mass/vol ume] in Serum or Plasma [facility] End: 12-28-2024 CT Chest WO contrast CT CHEST WO IVCON Radiology Routine Wheezing Asthma-COPD overlap syndrome (HCC) SOB (shortness of breath) on exertion Decreased activity tolerance Productive cough 1 Occurrences starting 11/29/2023 until 12/28/2024 [facility] Work Phone: Comment on above: 1 Occurrences starting 11/29/2023 until 12/28/2024 CT Chest WO contrast CT CHEST WO IVCON Radiology Routine Wheezing Asthma-COPD overlap syndrome (HCC) SOB (shortness of breath) on exertion Decreased activity tolerance Productive cough 12/05/2023 11:51 AM EDT [facility] Work Phone: Cystourethroscopy CYSTO.PANENDO Procedures Routine Bladder neck stricture Ordered: 07/20/2022 [facility] Work Phone: Comment on above: Ordered: 07/20/2022 Cystourethroscopy CYSTO.PANENDO Procedures Routine Weak urinary stream Ordered: 10/19/2022 [facility] Work Phone: Comment on above: Ordered: 10/19/2022 Cystourethroscopy CYSTO.PANENDO Procedures Routine Bladder neck stricture Ordered: 06/24/2023 [facility] Work Phone: Comment on above: Ordered: 06/24/2023 End: 07-27-2023 ECG COMPLETE ECG COMPLETE ECG Routine Preoperative clearance 1 Occurrences starting 07/26/2022 until 07/27/2023 [facility] Work Phone: Comment on above: 1 Occurrences starting 07/26/2022 until 07/27/2023 ECG COMPLETE ECG COMPLETE ECG 07/26/2022 9:57 AM EDT [facility] End: 09-05-2025 Echocardiography ECHO Cardiology Routine Permanent atrial fibrillation (HCC) Hypertension, essential Pulmonary hypertension (HCC) 1 Occurrences starting 09/05/2024 until 09/05/2025 [facility] Work Phone: Comment on above: 1 Occurrences starting 09/05/2024 until 09/05/2025 Erythrocyte mean corpuscular volume determination [facility] Erythrocyte mean corpuscular volume determination [facility] Erythrocyte mean corpuscular volume determination [facility] Glucose [Mass/volume ] in Serum or Plasma [facility] Glucose [Mass/volume ] in Serum or Plasma [facility] Glucose [Mass/volume ] in Serum or Plasma [facility] Hematocrit [Volume Fraction] of Blood [facility] Hematocrit [Volume Fraction] of Blood [facility] Hematocrit [Volume Fraction] of Blood [facility] Hemoglobin [Mass/vol ume] in Blood [facility] Hemoglobin [Mass/vol ume] in Blood [facility] Hemoglobin [Mass/vol ume] in Blood [facility] Leukocytes [#/volume ] in Blood [facility] Leukocytes [#/volume ] in Blood [facility] Leukocytes [#/volume ] in Blood [facility] End: 12-28-2024 LUNG VOLUMES LUNG VOLUMES PFT Routine Wheezing Asthma-COPD overlap syndrome (HCC) SOB (shortness of breath) on exertion Decreased activity tolerance Productive cough 1 Occurrences starting 11/29/2023 until 12/28/2024 [facility] Comment on above: 1 Occurrences starting 11/29/2023 until 12/28/2024 Magnesium measurement [facility] Mean corpuscular hemoglobin concentration determination [facility] Mean corpuscular hemoglobin concentration determination [facility] Mean corpuscular hemoglobin concentration determination [facility] Mean corpuscular hemoglobin determination [facility] Mean corpuscular hemoglobin determination [facility] Mean corpuscular hemoglobin determination [facility] Measurement of renal function [facility] Measurement of renal function [facility] Measurement of renal function [facility]il [facility] Neut[facility] count [facility] Neut[facility]il count [facility] Neut[facility]il percent differential count [facility] Neutrophil percent differential count [facility] Neutrophil percent differential count [facility] Patient Education [facility] Work Phone: Platelets [#/volume] in Blood [facility] Platelets [#/volume] in Blood [facility] Platelets [#/volume] in Blood [facility] Potassium measurement [facility] Potassium measurement [facility] Potassium measurement [facility] Red blood cell count [facility] Red blood cell count [facility] Red blood cell count [facility] Red cell distributio n width determination [facility] Red cell distributio n width determination [facility] Red cell distributio n width determination [facility] Serum chloride measurement [facility] Serum chloride measurement [facility] Serum chloride measurement [facility] Serum inorganic phos phate measurement [facility] Sodium measurement [facility] Sodium measurement [facility] Sodium measurement [facility] End: 12-28-2024 SPIROMETRY - BASELINE AND POST DILATOR SPIROMETRY - BASELINE AND POST DILATOR PFT Routine Wheezing Asthma-COPD overlap syndrome (HCC) SOB (shortness of breath) on exertion Decreased activity tolerance Productive cough 1 Occurrences starting 11/29/2023 until 12/28/2024 [facility] Comment on above: 1 Occurrences starting 11/29/2023 until 12/28/2024 Urea nitrogen [Mass/volume] in Serum or Plasma [facility] Urea nitrogen [Mass/volume] in Serum or Plasma [facility] Urea nitrogen [Mass/volume] in Serum or Plasma [facility] End: 06-15-2025 US Lower extremity vein - bilateral US DVT LOWER BILATERAL Radiology Routine Hospital discharge follow-up Bilateral leg edema 1 Occurrences starting 05/16/2024 until 06/15/2025 [facility] Comment on above: 1 Occurrences starting 05/16/2024 until 06/15/2025 End: 12-09-2024 XR HIP BILATERAL 5V PEL/AP/LAT EACH HIP XR HIP BILATERAL 5V PEL/AP/LAT EACH HIP Radiology Routine Bilateral hip pain 1 Occurrences starting 11/10/2023 until 12/09/2024 [facility] Comment on above: 1 Occurrences starting 11/10/2023 until 12/09/2024 End: 12-09-2024 XR Knee - right 4 Views XR KNEE GENERAL 4V AP BOTH/PA BOTH/LAT/MERC RIGHT Radiology Routine Bilateral hip pain 1 Occurrences starting 11/10/2023 until 12/09/2024 [facility] Work Phone: Comment on above: 1 Occurrences starting 11/10/2023 until 12/09/2024 End: 12-22-2024 XR Lumbar spine AP and Lateral XR LUMBAR LIMITED 2V AP/LAT Radiology Routine 1 Occurrences starting 11/23/2023 until 12/22/2024 [facility] Work Phone: Comment on above: 1 Occurrences starting 11/23/2023 until 12/22/2024 XR Lumbar spine AP a nd Lateral XR LUMBAR LIMITED 2V AP/LAT Radiology Routine 11/23/2023 8:59 AM EDT [facility] Immunizations Immunization Date Immunization Notes Care Provider Fa [facility] 11-19-2024 influenza, high dose seasonal, preservative-free Dr. Dipak Aguilar DO Work Phone: [facility] 11-30-2023 zoster vaccine recombinant Pulm Wstr Work Phone: [facility] 10-30-2023 influenza virus vacc ine, unspecified formulation Dipak Aguilar DO Work Phone: [facility] 05-08-2023 COVID-19 vaccine, ag e 12+ yr, season (Alta Analog) Aj Issa MD Work Phone: [facility] 11-27-2022 COVID-19 vaccine, ag e 12+ yr, season (PFIZER-BIONTECH) Mini Saldaña RN [facility] 11-04-2022 influenza (HD-IIV4) vaccine, age 65+ yr, high dose, quadrivalent, PF (FLUZONE HIGH-DOSE) Radha Berman REACHER.AUDIO VISUAL EQUIPMENT RENTAL CLERK Work Phone: [facility] 11-04-2022 respiratory syncytia l virus (RSV) vaccine, adjuvanted (AREXVY) Radha Berman REACHER.AUDIO VISUAL EQUIPMENT RENTAL CLERK Work Phone: [facility] 11-04-2022 influenza virus vacc ine, unspecified formulation Analisa Nicole MD Work Phone: [facility] 12-01-2021 COVID-19 booster vaccine, age 12+ yr, bivalent (PFIZER-BIONTECH) Fl Nurse Work Phone: [facility] Work Phone: 11-16-2021 influenza, high-dose , quadrivalent vaccine (FLUZONE HIGH DOSE QUADRIVALENT) Fl Nurse Work Phone: [facility] Work Phone: 11-17-2020 COVID-19 vaccine, ag e 12+ yr (PFIZER-BIONTECH - PURPLE TOP) No Pcp [facility] 11-12-2020 influenza, high-dose , quadrivalent vaccine (FLUZONE HIGH DOSE QUADRIVALENT) No Pcp [facility] 04-16-2020 COVID-19 vaccine, ag e 12+ yr (PFIZER-BIONTECH - PURPLE TOP) No Pcp [facility] Work Phone: 03-18-2020 COVID-19 vaccine, ag e 12+ yr (PFIZER-BIONTECH - PURPLE TOP) No Pcp [facility] Work Phone: 11-12-2019 influenza, high-dose , quadrivalent vaccine (FLUZONE HIGH DOSE QUADRIVALENT) No Pcp [facility] 01-05-2019 zoster vaccine recombinant No Pcp [facility] 11-30-2018 Influenza virus vaccine [facility] 11-30-2018 Dr. Dipak Aguilar DO Work Phone: [facility] 11-10-2018 influenza, high dose seasonal, preservative-free No [facility] 11-11-2017 influenza, high dose seasonal, preservative-free No [facility] 11-11-2017 tetanus and diphther ia toxoids, adsorbed, preservative free, for adult use (5 Lf of tetanus toxoid and 2 Lf of diphtheria toxoid) No [facility] 11-10-2016 influenza, high dose seasonal, preservative-free No [facility] Work Phone: 11-10-2015 influenza, high dose seasonal, preservative-free No [facility] Work Phone: 11-07-2014 influenza, high dose seasonal, preservative-free No [facility] 11-07-2014 pneumococcal conjuga te vaccine, 13 valent No [facility] 10-08-2013 pneumococcal polysaccharide vaccine, 23 valent No [facility] 11-20-2012 influenza virus vacc ine, unspecified formulation No [facility] 11-20-2011 influenza virus vacc ine, unspecified formulation No [facility] Work Phone: 08-17-2010 tetanus and diphther ia toxoids, adsorbed, preservative free, for adult use (2 Lf of tetanus toxoid and 2 Lf of diphtheria toxoid) No [facility] 12-19-2006 influenza virus vacc ine, unspecified formulation No [facility] Work Phone: 05-23-1999 pneumococcal polysaccharide vaccine, 23 valent No [facility] Work Phone: Payers Date Payer Category Payer Self-pay 2009 Medicare [id number] 2009 Medicare AETNA MEDICARE A ETNA MEDICARE PPO [id number] 2009-Present [phone] [address] [place] [address] O [id number] 2009 Medicare AETNA MEDICARE A ETNA MEDICARE PPO [id number] 2009-Present [phone] [address] [place] [address] PPO [id number] 2009 Medicare (Managed Care) AETNA ME DICARE [id number] 2009 Medicare [id number] 1936 Unknown [id number] 2.16840.1.981590.3.579.2. 594 Unknown [id number] 2.16840.1.898705.3.579.2. 462 Unknown [id number] 2.16840.1.428448.3.579.2. 462 Unknown [id number] 2.16.840.1.626895.3.579.2. 462 Unknown [id number] 2.16.840.1.786071.3.579.2. 462 Unknown [id number] 2.16.840.1.513809.3.579.2. 462 Unknown [id number] 2.16.840.1.705683.3.579.2. 462 Unknown [id number] 2.16.840.1.730127.3.579.2. 462 Unknown [id number] 2.16.840.1.863293.3.579.2. 462 Unknown [id number] 2.16840.1.075158.3.579.2. 462 Unknown [id number] 2.16.840.1.242618.3.579.2. 462 Unknown [id number] 2.16.840.1.631010.3.579.2. 462 Unknown [id number] 2.16.840.1.348702.3.579.2. 462 Unknown [id number] 2.16.840.1.136875.3.579.2. 462 Unknown [id number] 2.16.840.1.659019.3.579.2. 462 Unknown [id number] 2..840.1.138960.3.579.2. 462 Unknown [id number] 2.16.840.1.618583.3.579.2. 462 Unknown [id number] 2.840.1.040596.3.579.2. 462 Unknown [id number] 2.840.1.717803.3.579.2. 462 Unknown [id number] 2.840.1.917616.3.579.2. 462 Unknown [id number] 2.840.1.989421.3.579.2. 462 Unknown [id number] 2.840.1.248491.3.579.2. 462 Unknown [id number] 2.840.1.872717.3.579.2. 462 Unknown [id number] 2.16840.1.264801.3.579.2. 462 Unknown [id number] 2.16840.1.716527.3.579.2. 462 Unknown [id number] 2.16.840.1.114430.3.579.2. 462 Unknown [id number] 2.16840.1.946277.3.579.2. 462 Unknown [id number] 2.16.840.1.488224.3.579.2. 462 Unknown [id number] 2.16840.1.904266.3.579.2. 462 Unknown [id number] 2.16.840.1.552603.3.579.2. 462 Unknown [id number] 2.16.840.1.334369.3.579.2. 462 Social History Date Type Detail Facility Start: 09-26-2018 End: 11-10-2024 Tobacco smoking status NHIS Ex-smoker [facility] Work Phone: Start: 04-25-1950 End: 09-26-1973 History of tobacco use Current smoker [facility] Work Phone: Start: 04-25-1950 End: 09-26-1973 History of tobacco use Cigarette Smoker [facility] Work Phone: Start: 09-26-2018 End: 11-23-2023 Tobacco use and exposure Smokeless tobacco non-user [facility] Work Phone: Start: 10-13-2020 End: 07-02-2024 Alcohol intake Current drinker of alcohol (finding) [facility] Start: 11-06-2019 History SDOH Alcohol Frequency 4 [facility] Start: 11-06-2019 History SDOH Alcohol Std Drinks 1 [facility] Start: 11-06-2019 History SDOH Social Connections Phone 3 [facility] Start: 11-06-2019 History SDOH Social Connections Get Together 5 [facility] Start: 11-06-2019 History SDOH Social Connections [employer] 2 [facility] Start: 11-06-2019 History SDOH Physica l Activity DPW 6 [facility] Start: 11-06-2019 Education 20 [facility] Start: 09-26-2018 End: 12-08-2021 Tobacco Comment I was a light smoker, 1 pack every 3 days. [facility] Start: 1935 Sex Assigned At Male [facility] Start: 09-13-2020 End: 12-08-2021 Exposure to SARS-CoV-2 (event) Not sure [facility] Start: 06-29-2022 End: 07-29-2022 Cigarettes smoked current (pack per day) - Reported 0.3 [facility] Start: 07-29-2022 Alcohol Comment occassional-on ce weekly [facility] Start: 11-06-2019 End: 06-29-2022 Social connection and isolation panel [facility] Do you belong to any clubs or organizations such as synagogue groups, unions, fraternal or athletic groups, or school groups? Yes [facility] Are you now , , , , never or living with a partner? [facility] How often to you hav e a drink containing alcohol? 2-3 time sa week [facility] How many standard dr inks containing alcohol do you have on a typical day? 1 or 2 [facility] How often do you hav e 6 or more drinks on 1 occasion? Never [facility] Start: 01-23-2012 Adult Depression Screening Assessment 0 [facility] Work Phone: Do you feel stress - tense, restless, nervous, or anxious, or unable to sleep at night because your mind is troubled all the time - these days [OSQ] Not at all [facility] (I/We) worried whechris er (my/our) food would run out before (I/we) got money to buy more. Never true [facility] In the past 12 month s, was there a time when you were not able to pay the mortgage or rent on time? No [facility] Start: 08-17-2020 Gender identity Identifies as male gender (finding) [facility] Do you feel stress - tense, restless, nervous, or anxious, or unable to sleep at night because your mind is troubled all the time - these days [OSQ] Only a little [facility] Work Phone: Start: 09-05-2019 Alcohol Alcohol [facility] Start: 09-05-2019 Lives Lives [facility] Medical Equipment Procedure Code Equipment Code Equipment Origin al Text Equipment Identifier Dates Test blood sugar (s) 1 times daily. Dx: Type 2 DM - Controlled E11.9 Insulin: No [id number] Start: 05-31-2024 Test blood sugar (s) 1 times daily. Dx: Type 2 DM - Controlled E11.9 Insulin: Yes [id number] Start: 05-31-2024 Goals Date Patient Goal Desired Activity /State Functional Status Date Assessment Result Facility 11-22-2024 Functional status Chair [facility] Work Phone: 11-20-2024 Functional status Ambulates [facility] Work Phone: 11-06-2024 Functional status Ambulates;Chair [facility] Work Phone: 11-05-2024 Functional status Fair [facility] Work Phone: 07-29-2022 Are you deaf, or do you have serious difficulty hearing No 07/29/2022 3:15 PM EDT Alejandra Freedman, NEHA.AUDIO VISUAL EQUIPMENT RENTAL CLERK No [facility] 07-29-2022 Are you blind, or do you have serious difficulty seeing, even when wearing glasses No 07/29/2022 3:15 PM EDT Alejandra Freedman, NEHA.AUDIO VISUAL EQUIPMENT RENTAL CLERK No [facility] 07-29-2022 Do you have serious difficulty walking or climbing stairs No 07/29/2022 3:15 PM EDT Alejandra Freedman, REACHER.AUDIO VISUAL EQUIPMENT RENTAL CLERK No [facility] 07-29-2022 Do you have difficul ty dressing or bathing No 07/29/2022 3:15 PM EDT Alejandra Freedman, NEHA.AUDIO VISUAL EQUIPMENT RENTAL CLERK No [facility] 07-29-2022 Because of a physica l, mental, or emotional condition, do you have difficulty doing errands alone such as visiting a physician's office or shopping No 07/29/2022 3:15 PM EDT Alejandra Freedman, NEHA.AUDIO VISUAL EQUIPMENT RENTAL CLERK No [facility] Mental Status Date Assessment Result Facility 11-22-2024 Cognitive function Voice/Name [facility] Work Phone: 11-20-2024 Cognitive function Voice/Name [facility] Work Phone: 11-18-2024 Cognitive function Appropriate [facility] Work Phone: 11-10-2024 Cognitive function Drowsy [facility] Work Phone: 11-06-2024 Cognitive function Voice/Name [facility] Work Phone: 10-14-2024 Cognitive function Awake;Alert;A ppropriate;Fo llows Commands [facility] Work Phone: 07-29-2022 Because of a physica l, mental, or emotional condition, do you have serious difficulty concentrating, remembering, or making decisions No 07/29/2022 3:15 PM EDT Alejandra Freedman APRN.CNP No [facility] Clinical Notes 10-26-2018 to 11-29-2024 Note Date & Type Note Facility 11-29-2024 Note HNO ID: [id number] Author: ELISA GARCIA APRN.AUDIO VISUAL EQUIPMENT RENTAL CLERK Service: ? Author Type: Nurse Practitioner Type: Progress Notes Filed: 11/30/2024 16:11 Note Text: Transitional Care Management Progress Note The patients TCM visit was performed within the 14 days of discharge. Patient's Date of discharge: 11/20/2024 Date of initial coordinator contact after discharge: NA Discharge diagnosis: BPH, sepsis, urinary retention, weakness, cholecystitis, cholelithiasis Medication review completed Yes Elisa Garcia APRN.AUDIO VISUAL EQUIPMENT RENTAL CLERK Provider Documentation: In follow-up of hospitalization, Taz Johnson is a 89 year old male with the chief complaint of hospital f/u for BPH/daily self-catheterization, cholecystitis and cholecystostomy tube. I have reviewed the patient?s last hospital course including diagnostic testing performed during this hospitalization, their discharge medications, and my assessment and plan with the patient and any family members present at today?s visit. HPI: Recent hospitalization at [facility] and TCU admit and discharge. Gallbladder: current cholecystostomy tube and PERI drain in place, patient/ empty it for greenish drainage 3x daily. They saw Dr. Cavazos on 11/23 and he told them to leave the drain in place and he needed to follow up with a specialist for consideration for removal of his gallbladder. Patient denies any current pain-generalized or localized, appetite fairly normal, no bloating or early satiety. Drain insertion site is not painful. BPH: hx BPH and need for daily self-cath in the past. Has previously seen Dr. Issa through [facility]-saw most recently in September 2024 and was told to just f/u prn. Developed urinary retention while in the hospital and had continuous benavides in place and then saw Dr. Asencio most recently on 11/27, outpatient. He was told to self straight cath daily, indefinitely, and to follow up prn. States he is not having any current difficulty with urination but was told the daily self cathing is to help prevent further stricture from scar tissue. He does have several boxes of catheters at home from his previous self cathing a year+ ago PAST MEDICAL HISTORY: Reviewed and updated ALLERGIES: Reviewed and updated MEDICATIONS: Reviewed and updated SOCIAL HISTORY: Reviewed and updated FAMILY HISTORY: Reviewed and updated REVIEW OF SYSTEMS: All other systems reviewed and negative, other than HPI. PHYSICAL EXAMINATION BP 110/64 Pulse 95 Wt 192 lb (87.1kg) SpO2 97% General appearance: Walker, alert, in no acute distress, and well-hydrated, well nourished, motor and sensory appear to be normal Lungs: clear to auscultation no wheezing or rhonchi Heart: RRR without murmur, gallop, or rubs. No ectopy Abdomen: PERI drain to RUQ, no s/s infection, patent, dressing surrounding insertion site 1. I have reviewed the patient record including associated test results during the last hospitalization Yes 2. I have reviewed Lab test Yes 3. I have reviewed Radiology test Yes 4. I reviewed assessment/plan with the patient/family member Yes ASSESSMENT/PLAN ASSESSMENT/PLAN: 1. Cholecystitis - ICD9: 575.10, ICD10: K81.9 (primary diagnosis) Requesting Dr. Landaverde Discussed s/s infection of drain and insertion site - CONSULT TO GENERAL SURGERY 2. H/O insertion of cholecystostomy tube - ICD9: V45.89, ICD10: Z98.[address] Landaverde Discussed s/s infection of drain and insertion site - CONSULT TO GENERAL SURGERY 3. Permanent atrial fibrillation (HCC) - ICD9: 427.31, ICD10: I48.21 controlled 4. Hypertension, essential - ICD9: 401.9, ICD10: I10 - Controlled - Continue current medications 5. Poor urinary stream - ICD9: 788.62, ICD10: R39.[address] Issa, patient is known to him 6. 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 Issa, patient is known to him 7. Benign prostatic hyperplasia with incomplete bladder emptying - ICD9: 600.01, 788.21, ICD10: N40.1, R39.[address] Issa, patient is known to him 8. 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 Landaverde - CONSULT TO GENERAL SURGERY Elisa Garcia APRN.AUDIO VISUAL EQUIPMENT RENTAL CLERK November 29, 2024 8:51 AM [facility] 11-20-2024 Discharge summary Note Date/Time November 20, 2024 5:17pm [facility] Medical Records Department [address] [place] [address] Discharge Summary 11/20/24 1714 MR#: [id number] Acct: [id number] Name: TAZ JOHNSON Rep #:[id number] : 1935 89 From: Brandon Black MD PCP: Dr. Dipak Aguilar DO Status:[id number] Providers Date of Admission: 11/06/24 Primary Care Physician: Dr. Dipak Aguilar DO Consultations 11/14/24 17:12 Consult: Urology Routine Consulting Provider: Gerard Asencio Reason for Consult: bph/urinary retention/benavides required guideware placement. EMERGENT Consult: No MD Notified: Yes Date Notified: 11/15/24 Time Notified: 08:39 Method of Notification: Verbal Reason For Visit: cholecystitis Diagnosis Discharge Diagnosis (1) Debility: Status: Acute Code(s): R53.81 - Other malaise (2) Sepsis: Status: Resolved Code(s): A41.9 - Sepsis, unspecified organism (3) Acute respiratory failure with hypoxia: Status: Resolved Code(s): J96.01 - Acute respiratory failure with hypoxia (4) Encephalopathy: Status: Resolved Code(s): G93.40 - Encephalopathy, unspecified (5) Acute cholecystitis: Status: Resolved Code(s): K81.0 - Acute cholecystitis (6) Aspiration pneumonia: Status: Resolved Code(s): J69.0 - Pneumonitis due to inhalation of food and vomit (7) Dysphagia: Status: Acute Code(s): R13.10 - Dysphagia, unspecified (8) GERD (gastroesophageal reflux disease): Status: Acute Code(s): K21.9 - Gastro-esophageal reflux disease without esophagitis (9) Atrial fibrillation with RVR: Status: Resolved Code(s): I48.91 - Unspecified atrial fibrillation (10) Vitamin D deficiency: Status: Acute Code(s): E55.9 - Vitamin D deficiency, unspecified (11) Asthma: Status: Acute Code(s): J45.909 - Unspecified asthma, uncomplicated (12) Type 2 diabetes mellitus with hyperglycemia: Status: Acute Code(s): E11.65 - Type 2 diabetes mellitus with hyperglycemia (13) Essential hypertension: Status: Acute Code(s): I10 - Essential (primary) hypertension (14) Hyperlipidemia: Status: Acute Code(s): E78.5 - Hyperlipidemia, unspecified (15) Acute on chronic heart failure with preserved ejection fraction (HFpEF): Status: Resolved Code(s): I50.33 - Acute on chronic diastolic (congestive) heart failure Plan 89 year old male with below past medical history hospitalized for sepsis 2/2 acute cholecystitis treated with cholecystostomy tube, acute respiratory failurewith hypoxia 2/2 aspiration pneumonia 2/2 dysphagia, complicated by encephalopathy, acute on chronic HFpEF, atrial fibrillation with RVR, admitted to TCU with debility, here for rehabilitation, strengthening, prior to dischargehome with . * Debility - PT/OT. * Dysphagia - ST. * Pain - Tylenol 1000mg q6 prn pain (1-10). * Bowel - senna/colace 2 tablets bid, Magnesium citrate 300mL daily prn. * Adult immunization - Administer pneumonia vaccine, covid vaccine, flu vaccine as appropriate. * DVT prophylaxis - Eliquis. * Asthma - Budesonide 0.5mg inhaled bid, Duoneb 0.5mg q6wart, Albuterol 1 puff 4x/day (May substitute Trelegy 200mcg 1 puff daily if daughter brings in home supply). * Atrial Fibrillation - Amiodarone 200mg tid thru 11/07/2024, then 200mg bid thru 11/14/2024, then 200mg daily, Eliquis 5mg bid. * Hyperlipidemia - Atorvastatin 40mg qhs. * Cholecystitis/Aspiration pneumonia - Cefdinir 300mg bid thru 11/09/2024, Flagyl 500mg tid thru 11/09/2024, consider lap akash when stable. * Nutrition - Ensure Plus 120mL tid. * Chronic HFpEF - Furosemide 40mg daily prn. * Congestion - Mucinex 1200mg bid. * HTN - Hydralazine 25mg bid prn high blood pressure. * Hypomagnesemia - Magnesium chloride 64mg daily. * Insomnia - Melatonin 10mg qhs. * Skin irritation - Calmoseptine topical bid. * Diabetes Mellitus II - Metformin 500mg bidcm. * Tinea Corporis - Nystatin powder topical bid. * GERD - Pantoprazole 20mg daily. * Dry nose - Sodium chloride 2 sprays nasal bid prn. The following psychotropic medication was present on admission: Risperdal 0.5mg qhs. Psychotropic medication therapy is indicated for a diagnosis of: [place]. Based on my clinical evaluation, continuation of the medication is necessary at this time. Gradual dose reduction plan (select one): __x__ GDR will be attempted. Will monitor patient symptoms and behaviors in response to GDR. ____ GRD contraindicated. Reason contraindicated: Medications at Discharge Home Medications omeprazole 40 mg capsule,delayed release 20 mg PO DAILY reflux 07/22/15 albuterol sulfate 90 mcg/actuation breath activated powder inhaler 1 puff PO [id number] of breath 09/05/19 apixaban 5 mg tablet 5 mg PO BID blood thinner #180 tabs 09/26/19 cholecalciferol (vitamin D3) 50 mcg (2,000 unit) tablet 50 mcg PO DAILY 09/26/19 Lactobacillus acidophilus 10 billion cell capsule (Probiotic) 10,000 mmu cells PO DAILY supplement 09/30/23 fluticasone fur. 200 mcg-umeclid 62.5 mcg-vilant 25 mcg inhalat.powder (Trelegy Ellipta) 1 ea inhalation DAILY breathing 09/30/23 hydralazine 25 mg tablet 25 mg PO BID PRN blood pressure 10/26/24 magnesium 200 mg tablet 200 mg PO DAILY magnesium 10/26/24 metformin 500 mg tablet 500 mg PO BID diabetes 10/26/24 rosuvastatin 20 mg tablet 20 mg PO DAILY 10/26/24 melatonin 10 mg disintegrating tablet 10 mg PO QHS sleep #0 tabs 11/04/24 furosemide 20 mg tablet 40 mg (2 x 20 mg) PO DAILY PRN swelling #30 tabs 11/06/24 sodium chloride 0.65 % nasal spray aerosol (Deep Sea Nasal) 2 spray NASAL BID PRN PRN NASAL DRYNESS #0 mL 11/06/24 sodium chloride 0.65 % nasal spray aerosol (Deep Sea Nasal) 2 spray intranasal BID PRN nasal congestion 11/06/24 amiodarone 200 mg tablet 200 mg PO DAILY 30 days #30 tabs 11/16/24 famotidine 20 mg tablet 40 mg (2 x 20 mg) PO DAILY 30 days #60 tabs 11/16/24 potassium chloride 20 mEq tablet,extended release(part/cryst) 20 meq PO DAILYCM 30 days #30 tabs 11/16/24 tamsulosin 0.4 mg capsule 0.4 mg PO DAILY@1730 30 days #30 caps 11/16/24 Hospital Course Operations - (Cholecystostomy.) Procedures None Summary of Care Provided Minutes Spent on Discharge: 35 Hospital Course: 89 year old male with below past medical history hospitalized for sepsis 2/2 acute cholecystitis treated with cholecystostomy tube, acute respiratory failurewith hypoxia 2/2 aspiration pneumonia 2/2 dysphagia, complicated by encephalopathy, acute on chronic HFpEF, atrial fibrillation with RVR, admitted to TCU with debility, here for rehabilitation, strengthening, prior to dischargehome with . Discharge home with 11/22/2024, [facility] PT/OT/SN/PRINGLE. Physical Exam Const alert General Appearance: cooperative HEENT normocephalic Eyes PERRL and EOMs intact bilaterally Neck supple, no JVD and no carotid bruits Resp normal respiratory effort, normal air movement and clear to auscultation bilaterally Cardio regular rate and regular rhythm GI normal to inspection, nondistended, normoactive bowel sounds, non-tender and non-distended GI Narrative: Cholecystostomy tube present. Bladder / Kidney Exam: catheter in place urethral Extremity normal capillary refill General Extremity: Negative for edema Skin no rashes or lesions noted General Skin Exam: no breakdown Psych affect normal Appearance: appropriate Weight / BMI Weight Weight: 93.95 kg Body Mass Index (BMI) 28.0 ABG / Lab / Microbiology Data 11/14/24 06:05 11/14/24 06:05 D/C Instructions Weight Bearing Status: Weight bearing as tolerated Call your doctor if you observe: Fever of 101 or Higher, Inability to urinate, Inability to have a bowel movement, Shortness of breath, Dizziness, Fainting spells, Swelling in the ankles, Chest pain and Uncontrolled pain DC O2, CPAP, BIPAP Needs Home O2 Discharge instructions: No Additional Instructions: Discharge home with 11/22/2024, [facility] PT/OT/SN/PRINGLE. Consider cholecystectomy as outpatient. Follow up with Dr. Asencio for benavides catheter, he has bph/urinary retention, and benavides was placed by guidewire. Please Follow Up With: Florencio Trent MD When: As scheduled. Meaningful Use Info Meaningful Use Meaningful Use Diagnoses (Choose all that apply): None applicable Discharge Plan Admission Admit Date/Time: 11/06/24 13:35 Primary Reason for Your Visit: Debility. Attending Provider: Brandon Black Chi Primary Care Provider: Dipak Aguilar Consulting Providers: Gerard Asencio Instructions Additional Instructions / Restrictions: Pending appeal, discharge home with 11/19/2024, [facility] PT/OT/PRINGLE. Consider cholecystectomy as outpatient. Follow up with Dr. Asencio for benavides catheter, he has bph/urinary retention, and benavides was placed by guidewire. Discharge Orders/Prescriptions Prescriptions: New amiodarone 200 mg Tablet 200 mg PO DAILY 30 Days Qty: 30 0RF potassium chloride 20 mEq Tablet,Er Particles/Crystals 20 meq PO DAILYCM 30 Days Qty: 30 0RF famotidine 20 mg Tablet 40 mg PO DAILY 30 Days Qty: 60 0RF tamsulosin 0.4 mg Capsule 0.4 mg PO DAILY@1730 30 Days Qty: 30 0RF Continued cholecalciferol (vitamin D3) 50 mcg (2,000 unit) tablet 50 mcg PO DAILY apixaban 5 mg tablet 5 mg PO BID Qty: 180 3RF omeprazole 40 MG capsule 20 mg PO DAILY albuterol sulfate 90 mcg/actuation aerosol powdr breath activated 1 puff PO Q6H Patient Comments: INHALE 1 PUFF BY MOUTH 4 TIMES DAILY NEEDED Deep Sea Nasal 0.65 % aerosol,spray 2 spray intranasal BID PRN (Reason: nasal congestion) Trelegy Ellipta 200-62.5-25 mcg blister with device 1 ea inhalation DAILY Probiotic 10 billion cell capsule 10,000 mmu cells PO DAILY rosuvastatin 20 mg tablet 20 mg PO DAILY metformin 500 mg tablet 500 mg PO BID hydralazine 25 mg tablet 25 mg PO BID PRN magnesium 200 mg tablet 200 mg PO DAILY melatonin 10 mg Tablet,Disintegrating 10 mg PO QHS Qty: 0 0RF Deep Sea Nasal 0.65 % Aerosol,[place] 2 spray NASAL BID PRN PRN (Reason: NASAL DRYNESS) Qty: 0 0RF furosemide 20 mg tablet 40 mg PO DAILY PRN (Reason: swelling) Qty: 30 0RF Patient Comments: take as needed for swelling , or weight gain of 3 pounds in one day Discontinued tadalafil 5 mg tablet 5 mg PO DAILY multivitamin Tablet 1 tab PO QWEEK risperidone 0.5 mg tablet 0.5 mg PO QHS Ensure Plus High Protein 0.08 gram-1.5 kcal/mL liquid 120 ml PO TID omeprazole 20 mg capsule,delayed release(DR/EC) 20 mg PO DAILY calcium carbonate-vitamin D3 600 mg-10 mcg (400 unit) tablet 1 tab PO DAILY multivitamin [Daily Multi-Vitamin] Tablet 1 tab PO DAILY ipratropium-albuterol 0.5 mg-3 mg(2.5 mg base)/3 mL solution for nebulization 3 ml inhalation TID amiodarone 200 mg Tablet 200 mg PO TID Qty: 0 0RF Rx Instructions: 200 mg 3 times daily until 11/07/2024 then decrease to 200 mg twice daily until 11/14/2024 then decrease to 200 mg daily and continue that indefinitely risperidone 0.5 mg Tablet 0.5 mg PO QHS Qty: 0 0RF acetaminophen 325 mg Tablet 650 mg PO Q4H PRN PRN (Reason: Fever, pain -11/30) Qty: 0 0RF sennosides-docusate sodium [Stimulant Laxative Plus] 8.6-50 mg Tablet 2 tab PO BID Qty: 0 0RF budesonide 0.5 mg/2 mL Suspension For Nebulization 0.5 mg inhalation BID.RT Qty: 0 0RF ipratropium bromide 0.02 % Solution 0.5 mg inhalation Q6HWA.RT Qty: 0 0RF Ensure Plus High Protein 0.08 gram-1.5 kcal/mL Liquid 120 ml PO TIDCM Qty: 0 0RF cefdinir 300 mg capsule 300 mg PO BID Qty: 6 0RF metronidazole 500 mg tablet 500 mg PO TID 3 Days Qty: 9 0RF guaifenesin [Mucinex] 600 mg tablet extended release 12hr 1,200 mg PO BID Qty: 14 0RF Referrals / Follow Up: Dipak Aguilar DO [Primary Care Provider, Medical] Gerard Asencio MD [Med Staff - Active Staff, Urology] - Within 1 Week Referral Note: bph/urinary retention, benavides placed by guidewire. Disposition Disposition (needs filled in before D/C Order can be placed): Home Health Service 11/20/24 1717 <Electronically signed by Brandon Black MD> Cosigner Signature (if applicable): CC: Dr. Dipak Aguilar DO; Dr. Brandon Black MD~ Signed [facility] Work Phone: [phone] 328-699909-30-2025 [facility]09-29-2025 Hospital Discharge instructionsAdditional Instructions Pending appeal, discharge home with 11/19/2024, [facility] PT/OT/PRINGLE. Consider cholecystectomy as outpatient. Follow up with Dr. Asencio for benavides catheter, he has bph/urinary retention, and benavides was placed by guidewire.[facility] Work Phone: [phone]) [phone] Discharge summary Author [facility] Note Date/Time November 19, 2024 7:20am [facility] Medical Records Department [address] [place] [id number] Discharge Summary 11/16/24 1556 MR#: [id number] Acct: [id number] Name: TAZ JOHNSON Rep #:[id number] : 1935 89 From: Brandon Black MD PCP: Dr. Dipak Aguilar DO Status:AD M IN Location: [facility] [id number] Providers Date of Admission: 11/06/24 Primary Care Physician: Dr. Dipak Aguilar DO Consultations 11/14/24 17:12 Consult: Urology Routine Consulting Provider: Gerard Asencio Reason for Consult: bph/urinary retention/benavides required guideware placement. EMERGENT Consult: No MD Notified: Yes Date Notified: 11/15/24 Time Notified: 08:39 Method of Notification: Verbal Reason For Visit: cholecystitis Diagnosis Discharge Diagnosis (1) Debility: Status: Acute Code(s): R53.81 - Other malaise (2) Sepsis: Status: Resolved Code(s): A41.9 - Sepsis, unspecified organism (3) Acute respiratory failure with hypoxia: Status: Acute Code(s): J96.01 - Acute respiratory failure with hypoxia (4) Encephalopathy: Status: Acute Code(s): G93.40 - Encephalopathy, unspecified (5) Acute cholecystitis: Status: Resolved Code(s): K81.0 - Acute cholecystitis (6) Aspiration pneumonia: Status: Acute Code(s): J69.0 - Pneumonitis due to inhalation of food and vomit (7) Dysphagia: Status: Acute Code(s): R13.10 - Dysphagia, unspecified (8) GERD (gastroesophageal reflux disease): Status: Acute Code(s): K21.9 - Gastro-esophageal reflux disease without esophagitis (9) Atrial fibrillation with RVR: Status: Resolved Code(s): I48.91 - Unspecified atrial fibrillation (10) Vitamin D deficiency: Status: Acute Code(s): E55.9 - Vitamin D deficiency, unspecified (11) Asthma: Status: Acute Code(s): J45.909 - Unspecified asthma, uncomplicated (12) Type 2 diabetes mellitus with hyperglycemia: Status: Acute Code(s): E11.65 - Type 2 diabetes mellitus with hyperglycemia (13) Essential hypertension: Status: Acute Code(s): I10 - Essential (primary) hypertension (14) Hyperlipidemia: Status: Acute Code(s): E78.5 - Hyperlipidemia, unspecified (15) Acute on chronic heart failure with preserved ejection fraction (HFpEF): Status: Acute Code(s): I50.33 - Acute on chronic diastolic (congestive) heart failure Plan 89 year old male with below past medical history hospitalized for sepsis 2/2 acute cholecystitis treated with cholecystostomy tube, acute respiratory failurewith hypoxia 2/2 aspiration pneumonia 2/2 dysphagia, complicated by encephalopathy, acute on chronic HFpEF, atrial fibrillation with RVR, admitted to TCU with debility, here for rehabilitation, strengthening, prior to dischargehome with . * Debility - PT/OT. * Dysphagia - ST. * Pain - Tylenol 1000mg q6 prn pain (1-10). * Bowel - senna/colace 2 tablets bid, Magnesium citrate 300mL daily prn. * Adult immunization - Administer pneumonia vaccine, covid vaccine, flu vaccine as appropriate. * DVT prophylaxis - Eliquis. * Asthma - Budesonide 0.5mg inhaled bid, Duoneb 0.5mg q6wart, Albuterol 1 puff 4x/day (May substitute Trelegy 200mcg 1 puff daily if daughter brings in home supply). * Atrial Fibrillation - Amiodarone 200mg tid thru 11/07/2024, then 200mg bid thru 11/14/2024, then 200mg daily, Eliquis 5mg bid. * Hyperlipidemia - Atorvastatin 40mg qhs. * Cholecystitis/Aspiration pneumonia - Cefdinir 300mg bid thru 11/09/2024, Flagyl 500mg tid thru 11/09/2024, consider lap akash when stable. * Nutrition - Ensure Plus 120mL tid. * Chronic HFpEF - Furosemide 40mg daily prn. * Congestion - Mucinex 1200mg bid. * HTN - Hydralazine 25mg bid prn high blood pressure. * Hypomagnesemia - Magnesium chloride 64mg daily. * Insomnia - Melatonin 10mg qhs. * Skin irritation - Calmoseptine topical bid. * Diabetes Mellitus II - Metformin 500mg bidcm. * Tinea Corporis - Nystatin powder topical bid. * GERD - Pantoprazole 20mg daily. * Dry nose - Sodium chloride 2 sprays nasal bid prn. The following psychotropic medication was present on admission: Risperdal 0.5mg qhs. Psychotropic medication therapy is indicated for a diagnosis of: [place]. Based on my clinical evaluation, continuation of the medication is necessary at this time. Gradual dose reduction plan (select one): __x__ GDR will be attempted. Will monitor patient symptoms and behaviors in response to GDR. ____ GRD contraindicated. Reason contraindicated: Medications at Discharge Home Medications omeprazole 40 mg capsule,delayed release 20 mg PO DAILY reflux 07/22/15 albuterol sulfate 90 mcg/actuation breath activated powder inhaler 1 puff PO [id number] of breath 09/05/19 apixaban 5 mg tablet 5 mg PO BID blood thinner #180 tabs 09/26/19 cholecalciferol (vitamin D3) 50 mcg (2,000 unit) tablet 50 mcg PO DAILY 09/26/19 Lactobacillus acidophilus 10 billion cell capsule (Probiotic) 10,000 mmu cells PO DAILY supplement 09/30/23 fluticasone fur. 200 mcg-umeclid 62.5 mcg-vilant 25 mcg inhalat.powder (Trelegy Ellipta) 1 ea inhalation DAILY breathing 09/30/23 hydralazine 25 mg tablet 25 mg PO BID PRN blood pressure 10/26/24 magnesium 200 mg tablet 200 mg PO DAILY magnesium 10/26/24 metformin 500 mg tablet 500 mg PO BID diabetes 10/26/24 rosuvastatin 20 mg tablet 20 mg PO DAILY 10/26/24 melatonin 10 mg disintegrating tablet 10 mg PO QHS sleep #0 tabs 11/04/24 furosemide 20 mg tablet 40 mg (2 x 20 mg) PO DAILY PRN swelling #30 tabs 11/06/24 sodium chloride 0.65 % nasal spray aerosol (Deep Sea Nasal) 2 spray NASAL BID PRN PRN NASAL DRYNESS #0 mL 11/06/24 sodium chloride 0.65 % nasal spray aerosol (Deep Sea Nasal) 2 spray intranasal BID PRN nasal congestion 11/06/24 amiodarone 200 mg tablet 200 mg PO DAILY 30 days #30 tabs 11/16/24 famotidine 20 mg tablet 40 mg (2 x 20 mg) PO DAILY 30 days #60 tabs 11/16/24 potassium chloride 20 mEq tablet,extended release(part/cryst) 20 meq PO DAILYCM 30 days #30 tabs 11/16/24 tamsulosin 0.4 mg capsule 0.4 mg PO DAILY@1730 30 days #30 caps 11/16/24 Hospital Course Operations - (See below.) Procedures None Summary of Care Provided Minutes Spent on Discharge: 35 Hospital Course: 89 year old male with below past medical history hospitalized for sepsis 2/2 acute cholecystitis treated with cholecystostomy tube, acute respiratory failurewith hypoxia 2/2 aspiration pneumonia 2/2 dysphagia, complicated by encephalopathy, acute on chronic HFpEF, atrial fibrillation with RVR, admitted to TCU with debility, here for rehabilitation, strengthening, prior to dischargehome with . 11/11/2024 Aspiration pneumonia treated with Unasyn x 7 days, along with steroids, bronchodilators. Pending appeal, discharge home with 11/19/2024, [facility] PT/OT/PRINGLE. Consider cholecystectomy as outpatient. Follow up with Dr. Asencio for benavides catheter, he has bph/urinary retention, and benavides was placed by guidewire. Physical Exam Const alert General Appearance: cooperative HEENT normocephalic Eyes PERRL and EOMs intact bilaterally Neck supple, no JVD and no carotid bruits Resp normal respiratory effort, normal air movement and clear to auscultation bilaterally Cardio regular rate and regular rhythm GI normal to inspection, nondistended, normoactive bowel sounds, non-tender and non-distended GI Narrative: Cholecystostomy tube present. Bladder / Kidney Exam: catheter in place urethral Extremity normal capillary refill General Extremity: Negative for edema Skin no rashes or lesions noted General Skin Exam: no breakdown Psych affect normal Appearance: appropriate Weight / BMI Weight Weight: 93.95 kg Body Mass Index (BMI) 28.0 ABG / Lab / Microbiology Data 11/14/24 06:05 11/14/24 06:05 D/C Instructions Discharge Activity: Return to Normal Activity, May Shower and Use Walker Weight Bearing Status: Weight bearing as tolerated Call your doctor if you observe: Fever of 101 or Higher, Inability to urinate, Inability to have a bowel movement, Shortness of breath, Dizziness, Fainting spells, Swelling in the ankles, Chest pain and Uncontrolled pain DC O2, CPAP, BIPAP Needs Home O2 Discharge instructions: No Additional Instructions: Pending appeal, discharge home with 11/19/2024, [facility] PT/OT/PRINGLE. Consider cholecystectomy as outpatient. Follow up with Dr. Asencio for benavides catheter, he has bph/urinary retention, and benavides was placed by guidewire. Please Follow Up With: Florencio Trent MD Meaningful Use Info Meaningful Use Meaningful Use Diagnoses (Choose all that apply): None applicable Discharge Plan Admission Admit Date/Time: 11/06/24 13:35 Primary Reason for Your Visit: Debility. Attending Provider: Brandon Black Chi Primary Care Provider: Dipak Aguilar Consulting Providers: Gerard Asencio Instructions Additional Instructions / Restrictions: Pending appeal, discharge home with 11/19/2024, [facility] PT/OT/PRINGLE. Consider cholecystectomy as outpatient. Follow up with Dr. Asencio for benavides catheter, he has bph/urinary retention, and benavides was placed by guidewire. Discharge Orders/Prescriptions Prescriptions: New amiodarone 200 mg Tablet 200 mg PO DAILY 30 Days Qty: 30 0RF potassium chloride 20 mEq Tablet,Er Particles/Crystals 20 meq PO DAILYCM 30 Days Qty: 30 0RF famotidine 20 mg Tablet 40 mg PO DAILY 30 Days Qty: 60 0RF tamsulosin 0.4 mg Capsule 0.4 mg PO DAILY@1730 30 Days Qty: 30 0RF Continued cholecalciferol (vitamin D3) 50 mcg (2,000 unit) tablet 50 mcg PO DAILY apixaban 5 mg tablet 5 mg PO BID Qty: 180 3RF omeprazole 40 MG capsule 20 mg PO DAILY albuterol sulfate 90 mcg/actuation aerosol powdr breath activated 1 puff PO Q6H Patient Comments: INHALE 1 PUFF BY MOUTH 4 TIMES DAILY NEEDED Deep Sea Nasal 0.65 % aerosol,spray 2 spray intranasal BID PRN (Reason: nasal congestion) Trelegy Ellipta 200-62.5-25 mcg blister with device 1 ea inhalation DAILY Probiotic 10 billion cell capsule 10,000 mmu cells PO DAILY rosuvastatin 20 mg tablet 20 mg PO DAILY metformin 500 mg tablet 500 mg PO BID hydralazine 25 mg tablet 25 mg PO BID PRN magnesium 200 mg tablet 200 mg PO DAILY melatonin 10 mg Tablet,Disintegrating 10 mg PO QHS Qty: 0 0RF Deep Sea Nasal 0.65 % Aerosol,[place] 2 spray NASAL BID PRN PRN (Reason: NASAL DRYNESS) Qty: 0 0RF furosemide 20 mg tablet 40 mg PO DAILY PRN (Reason: swelling) Qty: 30 0RF Patient Comments: take as needed for swelling , or weight gain of 3 pounds in one day Discontinued tadalafil 5 mg tablet 5 mg PO DAILY multivitamin Tablet 1 tab PO QWEEK risperidone 0.5 mg tablet 0.5 mg PO QHS Ensure Plus High Protein 0.08 gram-1.5 kcal/mL liquid 120 ml PO TID omeprazole 20 mg capsule,delayed release(DR/EC) 20 mg PO DAILY calcium carbonate-vitamin D3 600 mg-10 mcg (400 unit) tablet 1 tab PO DAILY multivitamin [Daily Multi-Vitamin] Tablet 1 tab PO DAILY ipratropium-albuterol 0.5 mg-3 mg(2.5 mg base)/3 mL solution for nebulization 3 ml inhalation TID amiodarone 200 mg Tablet 200 mg PO TID Qty: 0 0RF Rx Instructions: 200 mg 3 times daily until 11/07/2024 then decrease to 200 mg twice daily until 11/14/2024 then decrease to 200 mg daily and continue that indefinitely risperidone 0.5 mg Tablet 0.5 mg PO QHS Qty: 0 0RF acetaminophen 325 mg Tablet 650 mg PO Q4H PRN PRN (Reason: Fever, pain -11/30) Qty: 0 0RF sennosides-docusate sodium [Stimulant Laxative Plus] 8.6-50 mg Tablet 2 tab PO BID Qty: 0 0RF budesonide 0.5 mg/2 mL Suspension For Nebulization 0.5 mg inhalation BID.RT Qty: 0 0RF ipratropium bromide 0.02 % Solution 0.5 mg inhalation Q6HWA.RT Qty: 0 0RF Ensure Plus High Protein 0.08 gram-1.5 kcal/mL Liquid 120 ml PO TIDCM Qty: 0 0RF cefdinir 300 mg capsule 300 mg PO BID Qty: 6 0RF metronidazole 500 mg tablet 500 mg PO TID 3 Days Qty: 9 0RF guaifenesin [Mucinex] 600 mg tablet extended release 12hr 1,200 mg PO BID Qty: 14 0RF Referrals / Follow Up: Dipak Aguilar DO [Primary Care Provider, Medical] Gerard Asencio MD [Med Staff - Active Staff, Urology] - Within 1 Week Referral Note: bph/urinary retention, benavides placed by guidewire. Disposition Disposition (needs filled in before D/C Order can be placed): Home Health Service 11/16/24 1609 <Electronically signed by Brandon Black MD> Cosigner Signature (if applicable): CC: Dr. Dipak Aguilar DO; Dr. Brandon Black MD~ Signed ADDENDUM by Dr. Brandon Black MD on 11/19/24 at 0720 Addendum Hold discharge until further notice. 11/19/24 0720<Electronically signed by Brandon Black MD> Cosigner Signature (if applicable): cc: Dr. Dipak Aguilar DO; Dr. Brandon Black MD ~* Signed [facility] Work Phone: [phone]) 310-367309-26-2025 [facility]09-23-2025 History and physical note Author Brandon Black [facility] Note Date/Time November 13, 2024 5:22pm [facility] Medical Records Department [address] [place] [address] History & Physical Exam 11/06/242022 MR#: [id number] Acct: [id number] Name: TAZ JOHNSON Rep #:[id number] : 1935 89 From: Brandon Black MD PCP: Dr. Dipak Aguilar DO Status:AD M IN Location: [facility] [id number] HPI - General General Date of Admission: 11/06/24 Date of Service: 11/06/24 Chief Complaint: Here for rehabilitation. HPI Narrative TAZ JOHNSON, is a 89 Male who presents with followin10/26/2024 [facility] ED nausea/vomiting. nausea/vomiting, ruq pain after [employer] clam chowder. 6.5 hours pain, vomited bilious material, normal bowel movement. Fall last week, on blood thinner for atrial fibrillation. Morphine, Zofran given. WBC 15.8, AST okay, ALT okay, Bili okay, Amylase okay. CT chest rib fractures 6 to 9, right middle lobe pneumonia versus cancer. CT showed acute cholecystitis. Ultrasound showed acute cholecystitis, gallbladder sludge, gallstones. Zosyn, IV fluids given. Lactate 3.2. 10/26/2024 Admit [facility]. Zosyn, IV fluids, General Surgery for sepsis/acute cholecystitis. Zosyn, Vancomycin, Azithromycin for sepsis/bilateral pneumonia. PT/OT/CM for debility. 10/27/2024 Urinary antigens negative, respiratory panel negative, mrsa negative. IV antibiotics for sepsis/pneumonia/cholecystitis. Hold Eliquis in case of surgery. Echo EF 70%. 10/28/2024 General Surgery recommended percutaneous cholecystostomy tube with later cholecystectomy for acute cholecystitis. Mucomyst for mucous plugs. Continue IV antibiotics for sepsis/pneumonia/cholecystitis. 10/29/2024 Coude catheter for urinary retention. Constipated, mildly confused. Percutaneous cholecystostomy tube placed by IR, drainage sent for culture. 10/30/2024 Unable to cough up secretions, confused. Constipated, atrial fibrillation with heart rate 130. 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 NPO, ST consulted for dysphagia. Metoprolol IV prn atrial fibrillation with rvr. 10/31/2024 Coughing up phlegm, cardizem drip, heparin drip, cardiology for atrialfibrillation with rvr. Cholecystostomy culture grew E. Coli, Klebsiella, antibiotis changed to Unasyn IV for acute cholecystitis/aspiration pneumonia. Infectious disease consulted. Supervised feed for dysphagia. Dysphagia ongoing for 15 years, patient has history of Zenker's diverticulum. 11/01/2024 Haldol, Morphine overnight for agitation. Melatonin, low dose risperidone prn insomnia. Sepsis resolved, known history of recurrent aspiration. Increase Amiodarone for atrial fibrillation with rvr, if not controlled. 11/02/2024 More awake, sepsis resolved, room air. 11/03/2024 Oxygen weaned. Restart Lasix. ST for dysphagia, amiodarone 200mg bid x 7 days, then 200mg daily for afib with rvr. Encephalopathy improving. 11/04/2024 Constipated, consider lap cholecystectomy in future. Increased risk of aspiration. Cardiology for afib with rvr. 11/05/2024 Ceftriaxone, Flagyl for acute cholecystitis s/p percutaneous cholecystostomy tube/aspiration pneumonia. PO Lasix for fluid overload/acute HFpEF. PT/OT TCU. 11/06/2024 Admit to TCU with debility, here for rehabilitation, strengthening, prior to discharge home with . [facility] Medical History (Updated 11/06/24 @ 20:[address] Brandon lBack MD) Type 2 diabetes mellitus Hyperlipidemia HTN (hypertension) [...] 5 mg tablet 5 mg PO BID blood thinner #1 80 tabs 09/26/19 Unknown Rx cholecalciferol (vitamin D3) 50 50 mcg PO DAILY Unknown History mcg (2,000 unit) tablet tadalafil 5 mg tablet 5 mg PO DAILY 09/26/19 Unkno wn History Lactobacillus acidophilus 10 10,000 mmu cells PO DAILY 09/30/23 09/30/23 History billion cell capsule (Probiotic) supplement calcium 600 mg (as 1 tab PO DAILY supplement 09/30/23 History carbonate)-vitamin D3 10 mcg (400 unit) tablet fluticasone fur. 200 mcg-umeclid 1 ea inhalation DAILY breathing 09/30/23 09/30/23 History 62.5 mcg-vilant 25 mcg inhalat.powder (Trelegy Ellipta) multivitamin (Daily Multi-Vitamin 1 tab PO DAILY suppl ement 09/30/23 09/30/23 History tablet) omeprazole 20 mg capsule,delayed 20 mg PO DAILY acid r eflux 09/30/23 09/30/23 History release hydralazine 25 mg tablet 25 mg PO BID PRN blood press ure 10/26/24 Unknown History ipratropium 0.5 mg-albuterol 3 mg 3 ml inhalation TID lung 10/26/24 Unknown History (2.5 mg base)/3 mL nebulization soln magnesium 200 mg tablet 200 mg PO DAILY magnesium Unknown History metformin 500 mg tablet 500 mg PO BID diabetes 10/26 Unknown History rosuvastatin 20 mg tablet 20 mg PO DAILY 10/26/24 Unkn own History amiodarone 200 mg tablet 200 mg PO TID atrial 5 Unknown Rx fibrillation/heart #0 tabs melatonin 10 mg disintegrating 10 mg PO QHS sleep #0 t abs 11/04/24 Unknown Rx tablet risperidone 0.5 mg tablet 0.5 mg PO QHS sleep #0 tabs 11/04/24 Unknown Rx acetaminophen 325 mg tablet 650 mg (2 x 325 mg) PO Q4H PRN PRN 11/06/24 Unknown Rx Fever, pain 1-11/30 #0 tabs budesonide 0.5 mg/2 mL suspension 0.5 mg (2 mL) inhala tion BID.RT 11/06/24 Unknown Rx for nebulization lungs #0 mL cefdinir 300 mg capsule 300 mg PO BID antibiotic #6 caps 11/06/24 Unknown Rx food supplemt, lactose-reduced 120 ml PO TID nutrition 11/06/24 Unknown History 0.08 gram-1.5 kcal/mL oral liquid (Ensure Plus High Protein) food supplemt, lactose-reduced 120 ml PO TIDCM #0 mL 0 11/06/24 Unknown Rx 0.08 gram-1.5 kcal/mL oral liquid (Ensure Plus High Protein) furosemide 20 mg tablet 40 mg (2 x 20 mg) PO DAILY P RN 11/06/24 Unknown Rx swelling #30 tabs guaifenesin 600 mg tablet, 1,200 mg (2 x 600 mg) PO BI D cough 11/06/24 Unknown Rx extended release 12 hr (Mucinex) #14 tabs ipratropium bromide 0.02 % 0.5 mg (2.5 mL) inhalation 11/06/24 Unknown Rx solution for inhalation Q6HWA.RT lungs #0 mL metronidazole 500 mg tablet 500 mg PO TID bowels 3 day s #9 tabs 11/06/24 Unknown Rx risperidone 0.5 mg tablet 0.5 mg PO QHS sleep 11/06/24 Unknown History sennosides 8.6 mg-docusate sodium 2 tab PO BID stool s oftener #0 tabs 11/06/24 Unknown Rx 50 mg tablet (Stimulant Laxative Plus) sodium chloride 0.65 % nasal spray 2 spray NASAL BID P RN PRN NASAL 11/06/24 Unknown Rx aerosol (Deep Sea Nasal) DRYNESS #0 mL sodium chloride 0.65 % nasal spray 2 spray intranasal BID PRN nasal 11/06/24 Unknown History aerosol (Deep Sea Nasal) congestion Allergy/AdvReac Type Severity Reaction Status Date / [...] type: does not use caffeine: No ROS Constitutional Constitutional: Reports weakness; Denies chills, fever(s) or weight gain ENT HEENT: Denies headache(s), nasal congestion or nasal discharge Cardiovascular Cardiovascular: Denies chest pain or palpitations Respiratory/Chest Respiratory/Chest: Denies cough, excessive phlegm production or shortness of breath with exertion Gastrointestinal Gastrointestinal: Denies abdominal pain, nausea or vomiting Genitourinary Genitourinary: Denies dysuria Musculoskeletal Musculoskeletal: Denies joint pain or joint swelling Integumentary Integumentary: Denies rash or wounds Neurologic Neurologic: Denies focal weakness, numbness or tingling Psychiatric Psychiatric: Denies anxiety, auditory hallucinations, depression, homicidal ideation or suicidal ideation Vital Signs Vital Signs Vital Signs: 11/06/24 14:20 11/06/24 14:20 11/06/24 19:58 Temperature 97.5 F L Temperature Source Temporal Pulse Rate 68 72 Pulse Rhythm Regular Pulse Strength Normal (2+) Respiratory Rate 18 16 Respiratory Effort Normal Non-Labored Respiratory Depth Normal Respiratory Pattern Normal Normal Blood Pressure 114/66 Blood Pressure Mean 82 Blood Pressure Source Monitor Blood Pressure Position Semi-Fowlers Blood Pressure Location Left Arm Pulse Ox 94 94 Oxygen Delivery Method Nasal Cannula Nasal Cannula Oxygen Flow Rate (L/min) 2 2 Weight Weight: 96.162 kg Body Mass Index (BMI) 28.7 Physical Exam Const alert General Appearance: cooperative HEENT normocephalic Eyes PERRL and EOMs intact bilaterally Neck supple, no JVD and no carotid bruits Resp normal respiratory effort, normal air movement and clear to auscultation bilaterally Cardio regular rate and regular rhythm GI normal to inspection, nondistended, normoactive bowel sounds, non-tender and non-distended GI Narrative: Cholecystostomy tube present. Extremity normal capillary refill General Extremity: Negative for edema Skin no rashes or lesions noted General Skin Exam: no breakdown Psych affect normal Appearance: appropriate Assessment & Plan Assessment/Plan (1) Debility: (2) Sepsis: (3) Acute respiratory failure with hypoxia: (4) Encephalopathy: (5) Acute cholecystitis: (6) Aspiration pneumonia: (7) Dysphagia: (8) GERD (gastroesophageal reflux disease): (9) Atrial fibrillation with RVR: (10) Vitamin D deficiency: (11) Asthma: (12) Type 2 diabetes mellitus with hyperglycemia: (13) Essential hypertension: (14) Hyperlipidemia: (15) Acute on chronic heart failure with preserved ejection fraction (HFpEF): PLAN: Plan 89 year old male with below past medical history hospitalized for sepsis 2/2 acute cholecystitis treated with cholecystostomy tube, acute respiratory failurewith hypoxia 2/2 aspiration pneumonia 2/2 dysphagia, complicated by encephalopathy, acute on chronic HFpEF, atrial fibrillation with RVR, admitted to TCU with debility, here for rehabilitation, strengthening, prior to dischargehome with . * Debility - PT/OT. * Dysphagia - ST. * Pain - Tylenol 1000mg q6 prn pain (1-10). * Bowel - senna/colace 2 tablets bid, Magnesium citrate 300mL daily prn. * Adult immunization - Administer pneumonia vaccine, covid vaccine, flu vaccine as appropriate. * DVT prophylaxis - Eliquis. * Asthma - Budesonide 0.5mg inhaled bid, Duoneb 0.5mg q6wart, Albuterol 1 puff 4x/day (May substitute Trelegy 200mcg 1 puff daily if daughter brings in home supply). * Atrial Fibrillation - Amiodarone 200mg tid thru 11/07/2024, then 200mg bid thru 11/14/2024, then 200mg daily, Eliquis 5mg bid. * Hyperlipidemia - Atorvastatin 40mg qhs. * Cholecystitis/Aspiration pneumonia - Cefdinir 300mg bid thru 11/09/2024, Flagyl 500mg tid thru 11/09/2024, consider lap akash when stable. * Nutrition - Ensure Plus 120mL tid. * Chronic HFpEF - Furosemide 40mg daily prn. * Congestion - Mucinex 1200mg bid. * HTN - Hydralazine 25mg bid prn high blood pressure. * Hypomagnesemia - Magnesium chloride 64mg daily. * Insomnia - Melatonin 10mg qhs. * Skin irritation - Calmoseptine topical bid. * Diabetes Mellitus II - Metformin 500mg bidcm. * Tinea Corporis - Nystatin powder topical bid. * GERD - Pantoprazole 20mg daily. * Dry nose - Sodium chloride 2 sprays nasal bid prn. The following psychotropic medication was present on admission: Risperdal 0.5mg qhs. Psychotropic medication therapy is indicated for a diagnosis of: [place]. Based on my clinical evaluation, continuation of the medication is necessary at this time. Gradual dose reduction plan (select one): __x__ GDR will be attempted. Will monitor patient symptoms and behaviors in response to GDR. ____ GRD contraindicated. Reason contraindicated: 11/06/242056 <Electronically signed by Brandon Black MD> Cosigner Signature (if applicable): CC: Dr. Dipak Aguilar DO; Dr. Brandon Black MD~ Signed ADDENDUM by Dr. Brandon Black MD on 11/07/24 at 0747 Addendum The following psychotropic medication is being started or the dose in being increased: Lorazepam 0.25mg po q4 prn. Psychotropic medication therapy is indicated for a diagnosis of: Anxiety/restlessness/sleep. In my professional judgement, medication is necessary because the resident?s symptoms cause significant distress to the resident or a danger to the resident or others. Evaluation for underlying causes including medical illness and pain has been considered. The benefits of the medication are felt to outweigh potential harm. Nonpharmacologic/behavior interventions have been attempted but have not been effective or nonpharmacologic interventions are contraindicated for this patient. Potential benefits and risks of treatment and alternatives have been reviewed with resident/family and the resident/family have accepted psychotropic medication treatment. Please see nursing documentation. 11/07/24746<Electronically signed by Brandon Black MD> Cosigner Signature (if applicable): cc: Dr. Dipak Aguilar DO; Dr. Brandon Black MD ~* Signed ADDENDUM by Dr. Brandon Black MD on 11/11/24 at 0647 Addendum Aspiration pneumonia - Unasyn 3gm iv q6 x 7 days. 11/11/24646<Electronically signed by Brandon Black MD> Cosigner Signature (if applicable): cc: Dr. Dipak Aguilar DO; Dr. Brandon Black MD ~* Signed ADDENDUM by Dr. Brandon Black MD on 11/13/24 at 1722 Addendum BPH/urinary retention - Tamsulosin 0.4mg daily, indwelling benavides, voiding trial 11/16/2024. 11/13/241721<Electronically signed by Brandon Black MD> Cosigner Signature (if applicable): cc: Dr. Dipak Aguilar DO; Dr. Brandon Black MD ~* Signed [facility] Work Phone: [phone]) 397-959309-21-2025 Radiology Diagnostic study [facility]09-20-2025 Discharge summary Author Sukhdev Mark [facility] Note Date/Time November 10, 2024 8:13pm [facility] Medical Records Department [address] [place] [address] Emergency Department Summary 11/10/24 MR#: [id number] Acct: [id number] Name: TAZ JOHNSON Rep #:[id number] : 1935 89 From: Sukhdev Mark MD PCP: Dr. Dipak Aguilar DO Status:RE G ER Location: ED ADDENDUM by Dr. Sukhdev Mark MD on 11/10/24 at 2012 There was miscommunication. Apparently the nurse and the TCU promised admissionto the family. Will have the nurse contact the TCU to determine if they feel comfortable taking him back. The was concerned they are not. Furthermore had lengthy discussion with daughter. She understands why I was sending him back. I apologized that there was miscommunication between the TCU nursing staff and our staff. I was not made aware that the patient was to be admitted nor was I made aware that of any communication other than they were sending the patient down for rapid A- fib/flutter. 11/10/242012<Electronically signed by Sukhdev Mark MD> Cosigner Signature (if applicable): cc: Dr. Dipak Aguilar DO ~* Signed ADDENDUM by Dr. Sukhdev Mark MD on 11/10/24 at 1952 EKG post cardioversion reveals a sinus rhythm rate of 89. There is premature atrial beat noted. He does have a right bundle branch block. MS interval 296 ms. QS duration 334 ms. QT duration 526 ms. Montgomery is normal. Patient was successfully cardioverted using 200 J first attempt. 11/10/241951<Electronically signed by Sukhdev Mark MD> Cosigner Signature (if applicable): cc: Dr. Dipak Aguilar, DO ~* Signed HPI History of Present Illness Chief Complaint: Palpitations Detail of Chief Complaint: Palpitations, presents from TCU Informant: patient and spouse/S.O. Limited: other Onset/Context/Timing Onset: Today Context: Sudden Onset Timing: Continuous Quality: Palpitations Location: Cardiovascular Current Severity: Moderate Maximum Severity: Moderate Worsened by: Nothing Relieved by: Nothing Associated Symptoms Associated Symptoms: Slight shortness of breath. Patient on anticoagulant, Eliquis Narrative Narrative: Patient presents from TCU. Patient is not a good informant. I was informed that he went into atrial flutter. He had an EKG performed at the TCU unit. He denies headache. No double vision blurred vision loss of vision. No trouble with speech or swallowing. He has had shortness of breath since his admission for cholecystitis. He had postop complications with pneumonia. He has been in the hospital for approximately 2+ weeks. He does complain of shortness of breath denies chest pain, pressure tightness heaviness. Nuys pain with breathing. He denies abdominal pain. Denies nausea, vomiting or diarrhea. Denies constipation. Nuys urologic symptoms. Prior similar symptoms: Yes Recent Illness/Hospitalization: Yes PFSH PFS Medical History Type 2 diabetes mellitus Hyperlipidemia [...] 5 mg tablet 5 mg PO BID blood thinner #1 80 tabs 09/26/19 Unknown Rx cholecalciferol (vitamin D3) 50 50 mcg PO DAILY Unknown History mcg (2,000 unit) tablet tadalafil 5 mg tablet 5 mg PO DAILY 09/26/19 Unkno wn History Lactobacillus acidophilus 10 10,000 mmu cells PO DAILY 09/30/23 09/30/23 History billion cell capsule (Probiotic) supplement calcium 600 mg (as 1 tab PO DAILY supplement 09/30/23 History carbonate)-vitamin D3 10 mcg (400 unit) tablet fluticasone fur. 200 mcg-umeclid 1 ea inhalation DAILY breathing 09/30/23 09/30/23 History 62.5 mcg-vilant 25 mcg inhalat.powder (Trelegy Ellipta) multivitamin (Daily Multi-Vitamin 1 tab PO DAILY suppl ement 09/30/23 09/30/23 History tablet) omeprazole 20 mg capsule,delayed 20 mg PO DAILY acid r eflux 09/30/23 09/30/23 History release hydralazine 25 mg tablet 25 mg PO BID PRN blood press ure 10/26/24 Unknown History ipratropium 0.5 mg-albuterol 3 mg 3 ml inhalation TID lung 10/26/24 Unknown History (2.5 mg base)/3 mL nebulization soln magnesium 200 mg tablet 200 mg PO DAILY magnesium Unknown History metformin 500 mg tablet 500 mg PO BID diabetes 10/26 Unknown History rosuvastatin 20 mg tablet 20 mg PO DAILY 10/26/24 Unkn own History amiodarone 200 mg tablet 200 mg PO TID atrial 5 Unknown Rx fibrillation/heart #0 tabs melatonin 10 mg disintegrating 10 mg PO QHS sleep #0 t abs 11/04/24 Unknown Rx tablet risperidone 0.5 mg tablet 0.5 mg PO QHS sleep #0 tabs 11/04/24 Unknown Rx acetaminophen 325 mg tablet 650 mg (2 x 325 mg) PO Q4H PRN PRN 11/06/24 Unknown Rx Fever, pain 1-11/30 #0 tabs budesonide 0.5 mg/2 mL suspension 0.5 mg (2 mL) inhala tion BID.RT 11/06/24 Unknown Rx for nebulization lungs #0 mL cefdinir 300 mg capsule 300 mg PO BID antibiotic #6 caps 11/06/24 Unknown Rx food supplemt, lactose-reduced 120 ml PO TID nutrition 11/06/24 Unknown History 0.08 gram-1.5 kcal/mL oral liquid (Ensure Plus High Protein) food supplemt, lactose-reduced 120 ml PO TIDCM #0 mL 0 11/06/24 Unknown Rx 0.08 gram-1.5 kcal/mL oral liquid (Ensure Plus High Protein) furosemide 20 mg tablet 40 mg (2 x 20 mg) PO DAILY P RN 11/06/24 Unknown Rx swelling #30 tabs guaifenesin 600 mg tablet, 1,200 mg (2 x 600 mg) PO BI D cough 11/06/24 Unknown Rx extended release 12 hr (Mucinex) #14 tabs ipratropium bromide 0.02 % 0.5 mg (2.5 mL) inhalation 11/06/24 Unknown Rx solution for inhalation Q6HWA.RT lungs #0 mL metronidazole 500 mg tablet 500 mg PO TID bowels 3 day s #9 tabs 11/06/24 Unknown Rx risperidone 0.5 mg tablet 0.5 mg PO QHS sleep 11/06/24 Unknown History sennosides 8.6 mg-docusate sodium 2 tab PO BID stool s oftener #0 tabs 11/06/24 Unknown Rx 50 mg tablet (Stimulant Laxative Plus) sodium chloride 0.65 % nasal spray 2 spray NASAL BID P RN PRN NASAL 11/06/24 Unknown Rx aerosol (Deep Sea Nasal) DRYNESS #0 mL sodium chloride 0.65 % nasal spray 2 spray intranasal BID PRN nasal 11/06/24 Unknown History aerosol (Deep Sea Nasal) congestion Allergy/AdvReac Type Severity Reaction Status Date / [...] change in vision ENT ENT ED: Denies rhinorrhea or sore throat Cardiovascular Cardiovascular: Reports orthopnea, palpitations and racing heartbeat; Denies chest pain or paroxysmal nocturnal dyspnea Respiratory/Chest Respiratory/Chest: Reports dyspnea and orthopnea; Denies cough or paroxysmal nocturnal dyspnea Gastrointestinal Gastrointestinal: Denies abdominal pain, diarrhea, melena, nausea or vomiting Genitourinary Genitourinary ED: Denies dysuria, hematuria or urinary frequency Musculoskeletal Musculoskeletal: Denies arthralgias or myalgias Integumentary Denies rash Neurologic Neurologic: Reports weakness; Denies paresthesias Psychiatric Psychiatric: Denies anxiety or depression Endocrine Endocrinology: Denies cold intolerance or heat intolerance Hematologic/Lymphatic Hematologic/Lymphatic: Reports easy bruising EXAM Physical Exam Const Vital Signs: 11/10/24 17:53 11/10/24 18:01 11/10/24 18:09 Temperature 97.7 F L Temperature Source Oral Pulse Rate 137 H Respiratory Rate 20 H Respiratory Effort Short of Breath Blood Pressure 153/79 H Blood Pressure Mean 103 Baseline BP Pulse Ox Oxygen Delivery Method Nasal Cannula Oxygen Flow Rate (L/min) 2 EtCo2 - Document during CPR and with ROSC 12 11/10/24 18:09 11/10/24 18:51 11/10/24 18:59 Temperature 99.4 F H Temperature Source Pulse Rate 98 134 H 94 Respiratory Rate 31 H 15 29 H Respiratory Effort Blood Pressure 198/189 H 182/127 H 109/53 L Blood Pressure Mean Baseline BP 182/127 Pulse Ox 94 95 95 Oxygen Delivery Method Room Air Nasal Cannula Nasal Cannula Oxygen Flow Rate (L/min) 5 5 5 EtCo2 - Document during CPR and with ROSC 9 8 8 11/10/24 19:00 11/10/24 19:04 11/10/24 19:09 Temperature 99.7 F H Temperature Source Oral Pulse Rate 87 84 89 Respiratory Rate 33 H 23 H 32 H Respiratory Effort Blood Pressure 116/61 101/65 116/61 Blood Pressure Mean 79 Baseline BP Pulse Ox 95 95 96 Oxygen Delivery Method Venturi Mask Nasal Cannula Nasal Cannula Oxygen Flow Rate (L/min) 6 5 5 EtCo2 - Document during CPR and with ROSC 8 10 11/10/24 19:14 11/10/24 19:17 11/10/24 19:26 Temperature Temperature Source Pulse Rate 84 86 84 Respiratory Rate 31 H 26 H 31 H Respiratory Effort Blood Pressure 111/58 L 111/65 120/58 L Blood Pressure Mean Baseline BP Pulse Ox 94 96 95 Oxygen Delivery Method Venturi Mask Venturi Mask Venturi Mask Oxygen Flow Rate (L/min) 6 6 EtCo2 - Document during CPR and with ROSC 12 10 13 Vital signs noted. Most recent vital signs are normal. Positive well nourished and well developed Constitutional Narrative: He is slightly somnolent. According to this is not abnormal since his admission to the TCU. General Appearance ED: well developed and NAD; Negative for pallor HEENT Reports dry mucous membranes HEENT Narrative: Head is atraumatic and normocephalic. Ears normal. Nares patent Mouth ED: Yes dry mucous membranes Mouth: dry mucous membranes Eyes PERRL and EOMs intact bilaterally General Eye ED: Negative for pale conjunctiva or scleral icterus Neck no lymphadenopathy, supple and no JVD Chest Wall inspection of chest normal and palpation of chest normal Resp normal respiratory effort and clear to auscultation bilaterally Cardio S1 normal heart sound, S2 normal heart sound and no murmurs Rate: tachycardic Rhythm: abnormal rhythm irregularly irregular GI normal to inspection, nondistended, normoactive bowel sounds, non-tender, non-distended and no masses; Negative for hepatosplenomegaly Back/Spine no CVA tenderness Extremity normal to inspection General Extremety ED: Yes edema; Negative for tenderness General Extremity: edema Neuro CN's II-XII intact bilaterally and no sensory deficits noted Neuro Narrative: Awake but not alert Sensorium / Orientation: Negative for alert Psych Psych Narrative: Flat awake but not alert. Flat affect Skin no rashes or lesions noted and no wounds General Skin Exam: Negative for jaundice or pallor MDM MDM MDM Narrative Medical decision making narrative: Received call regarding patient. Since he is on anticoagulant plan was to cardiovert. Case was discussed with Dr. Currie. History & Record Review Discussion w/independent historian: Family Additional record(s) reviewed:: Prior inpatient record (Hospitalization for cholecystectomy. Since he was not stable he did not undergo surgery. Tube placed. He developed pneumonia. He had a prolonged hospital stay. He is presently residing in the transitional care unit.) Lab Data Attestation: I reviewed the patient's lab results. Lab results narrative: White count is elevated 16.7 thousand. Patient had a elevated white count for some time. Electrolyte panel was elevated creatinine. He has had renal insufficiency based on prior labs. Labs: Laboratory Results - last 24 hr 11/10/24 18:25 WBC 16.7 H RBC 4.90 Hgb 14.5 Hct 44.0 MCV 89.8 MCH 29.6 MCHC 33.0 RDW Std Deviation 52.0 H RDW Coeff of Pollo 16.4 H Plt Count 403 MPV 10.0 Immature Gran % (Auto) 1.400 H Neut % (Auto) 85.6 H Lymph % (Auto) 5.3 L [place] % (Auto) 5.6 Eos % (Auto) 1.4 Baso % (Auto) 0.7 Absolute Neuts (auto) 14.3 H Absolute Lymphs (auto) 0.89 Nucleated RBC % 0 Sodium 141 Potassium 4.3 Chloride 103 Carbon Dioxide 25.9 Anion Gap 12 BUN 12 Creatinine 1.29 H Estim Creat Clear Calc 47.77 L Est GFR (MDRD) Non-Af 53 L BUN/Creatinine Ratio 9.5 L Glucose 104 H Calcium 9.9 Rhythm Strip Rhythm Strip: Atrial flutter 2-1 block with a rate of 145. Ectopy: None EKG Initial EKG: Attestation: I personally reviewed and interpreted this EKG as follows: Interpretation: Atrial Fibrillation (Atrial fibrillation with rapid ventricular response. He is right bundle branch block. QRS durations prolongedat 140 ms. QT duration 290 ms. His QTc be is prolonged at 546 ms. Montgomery is to the right. There is no acute ischemic changes. He has repolarization changes due to the right bundle branc) Management Discussion w/another healthcare provider: Circular Knitter (Dr. Ochoa called prior to his arrival.) Treatment and Re-Evaluation :: Since patient anticoagulated and a flutter/A-fib and anticoagulated will cardiovert. Patient was consented for procedural sedation using propofol. And he was successfully cardioverted using 200 J. Procedures Procedural Sedation 1 (Initial Baseline): Consent Signed: Yes Any Problems With Anesthesia: No You/Your family experience fever (hyperthermia) w/anesthesia: Unknown Sedation medication: Propofol Dose: 50 Total Moderate Sedation Units: 3 Maliampati Score: Class II ASA Classification: E and IV Critical Care Time Critical Care Time: Yes Critical care time (excluding procedures): 30-74 minutes (17), Including time spent: (History, physical, documentation, review of in hospital records and H&P by Dr. Daniels.), Discussing w/Patient &/or Family/Geriatric Case Manager, Discussing w/Consultants, Arranging Admission or Transfer and Performing Direct Patient Care at Bedside (Cardioversion) Discharge Plan Triage Chief Complaint: Palpitations ED Provider: Sukhdev Mark Dx/Rx/DC Orders Clinical Impression: Atrial fibrillation and flutter, Pulmonary hypertension, Acute on chronic respiratory failure with hypoxia and hypercapnia, Anticoagulant long-term use, Type 2 diabetes mellitus with hyperglycemia, Essential hypertension Instructions: ED AFIB Prescriptions: No Action cholecalciferol (vitamin D3) 50 [...] PUFF BY MOUTH 4 TIMES DAILY NEEDED risperidone 0.5 mg tablet 0.5 mg PO QHS Ensure Plus High Protein 0.08 gram-1.5 kcal/mL liquid 120 ml PO TID Deep Sea Nasal 0.65 % aerosol,spray 2 spray intranasal BID PRN (Reason: nasal congestion) omeprazole 20 mg capsule,delayed release(DR/EC) 20 mg [...] mg PO BID hydralazine 25 mg tablet 25 mg PO BID PRN ipratropium-albuterol 0.5 mg-3 mg(2.5 mg base)/3 mL solution for nebulization 3 ml inhalation TID magnesium 200 mg tablet 200 mg PO DAILY amiodarone 200 mg Tablet 200 mg PO [...] PO Q4H PRN PRN (Reason: Fever, pain -11/30) Qty: 0 0RF sennosides-docusate sodium [Stimulant Laxative Plus] 8.6-50 mg Tablet 2 tab PO BID Qty: 0 0RF budesonide 0.5 mg/2 mL Suspension For Nebulization 0.5 mg inhalation BID.RT Qty: 0 0RF ipratropium bromide 0.02 % Solution 0.5 mg inhalation Q6HWA.RT Qty: 0 0RF Deep Sea Nasal 0.65 % Aerosol,[place] 2 spray NASAL BID PRN PRN (Reason: [...] 1,200 mg PO BID Qty: 14 0RF furosemide 20 mg tablet 40 mg PO DAILY PRN (Reason: swelling) Qty: 30 0RF Patient Comments: take as needed for swelling , or weight gain of 3 pounds in one day Primary Care Provider: Dipak Aguilar Referrals: Dipak Aguilar DO [Primary Care Provider, Medical] Print Language: Jordanian Disposition Disposition: Inpatient Rehab Unit/Facility Discharge Location: [facility] Transitional Care Unit What to do if you have Problems For any increased pain, shortness of breath, bleeding, nausea or vomiting, chestpain, or any unexpected problems, contact your Primary Care Provider. Call [facility] ([phone]) or report to the closest Emergency Room. Call 911 if necessary. 11/10/241949 <Electronically signed by Sukhdev Mark MD> Cosigner Signature (if applicable): CC: Dr. Dipak Aguilar, DO ~ Signed [facility] Work Phone: 1(572) 268-370109-17-2025 Progress note Author Nessa Tinoco [facility] Note Date/Time November 07, 2024 5:07pm [facility] Medical Records Department [address] [place] [address] Progress Note - Pharmacy 11/07/24 1617 MR#: [id number] Acct: [id number] Name: TAZ JOHNSON Rep #:[id number] : 1935 89 From: Nessa Tinoco PCP: Dr. Dipak Aguilar, Status:AD IN Location: TCU [facility]-1 Documented by User: Nessa Tinoco 11/07/24 17:06 TCU RX Drug Regimen Review Subjective/Objective Subjective/Objective Subjective: TCU Admission. 89 YOM presented to the ER with nausea and vomiting. Hospitalized for sepsis 2/2 acute cholecystitis treated with cholecystostomy tube, acute respiratory failure with hypoxia 2/2 aspiration pneumonia 2/2 dysphagia, complicated by encephalopathy, acute on chronic HFpEF, atrial fibrillation with RVR. Admitted to TCU with debility for strengthening and rehabilitation. Objective: Allergies No Known Allergies Allergy (Verified 10/26/24 16:44) Current Medications Generic Name Dose Route Start Last Admin Trade Name Freq PRN Reason Stop Dose Admin Acetaminophen 1,000 mg 11/06/24 20:44 11/07/24 01:10 Acetaminophen 500 Mg Tablet PO 1,000 mg Q6H PRN PRN Administration Pain Score 1-10 Albuterol Sulfate 1 puff 11/07/24 07:50 Albuterol Ih (6.7 Gm) 1 Puff Inhaler INHALATION 0500,1100,1700,2300 PRN SOB &/OR WHEEZING Amiodarone HCl 200 mg 11/06/24 22:00 11/07/24 14:11 Amiodarone 200 Mg Tablet PO 11/07/24 22:00 200 mg TID SOLEDAD Administration Amiodarone HCl 200 mg 11/08/24 10:00 Amiodarone 200 Mg Tablet PO 11/14/24 22:00 BID SOLEDAD Amiodarone HCl 200 mg 11/15/24 10:00 Amiodarone 200 Mg Tablet PO DAILY SOLEDAD Apixaban 5 mg 11/06/24 22:00 11/07/24 08:10 Apixaban 5 Mg Tablet PO 5 mg BID SOLEDAD Administration Atorvastatin Calcium 40 mg 11/07/24 10:00 11/07/24 08:10 Atorvastatin Calcium 40 Mg Tablet PO 40 mg DAILY SOLEDAD Administration Calamine/Phenol 1 applic 11/06/24 22:00 11/07/24 08:09 Menthol/Lanolin/Calamine/Znox 113 Gm Tube TOPICAL 1 applic BID SOLEDAD Administration Protocol Cefdinir 300 mg 11/06/24 22:00 11/07/24 08:11 Cefdinir 300 Mg Capsule PO 11/09/24 10:01 300 mg BID SOLEDAD Administration Furosemide 40 mg 11/06/24 14:28 Furosemide 40 Mg Tablet PO DAILY PRN swelling Protocol Guaifenesin 1,200 mg 11/06/24 22:00 11/07/24 08:11 Guaifenesin 1,200 Mg Tablet PO 11/13/24 10:01 1,200 mg BID SOLEDAD Administration Hydralazine HCl 25 mg 11/06/24 14:30 Hydralazine 25 Mg Tablet PO BID PRN SEE INSTRUCTIONS Protocol Lorazepam 0.5 mg 11/07/24 07:46 Lorazepam 0.5 Mg Tablet PO Q4H PRN PRN ANXIETY/RESTLESSNESS/SLEEP Magnesium Chloride 64 mg 11/07/24 10:00 11/07/24 08:10 Magnesium Chloride 64 Mg Delay Rel.Tablet PO 64 mg DAILY SOLEDAD Administration Magnesium Citrate 300 ml 11/06/24 20:58 Magnesium Citrate 300 Ml PO DAILY PRN CONSTIPATION Melatonin 10 mg 11/06/24 22:00 11/06/24 23:41 Melatonin 10 Mg Tablet PO 10 mg QHS SOLEDAD Administration Metformin HCl 500 mg 11/06/24 17:00 11/07/24 08:08 Metformin Hcl 500 Mg Tablet PO 500 mg BIDCM SOLEDAD Administration Metronidazole 500 mg 11/06/24 22:00 11/07/24 14:11 Metronidazole 500 Mg Tablet PO 11/09/24 22:01 500 mg TID SOLEDAD Administration Nutritional Formula (Lactose Free) 120 ml 11/06/24 22:00 11/07/24 14:09 Ensure Plus High Protein 120 Ml Liquid PO 120 ml TID SOLEDAD Administration Nystatin 1 applic 11/06/24 22:00 11/07/24 11:14 Nystatin Powder 15gm Bottle TOPICAL 1 applic BID SOLEDAD Administration Protocol Pantoprazole Sodium 20 mg 11/07/24 10:00 11/07/24 08:11 Pantoprazole Sodium 20 Mg Tablet PO 20 mg DAILY SOLEDAD Administration Risperidone 0.5 mg 11/06/24 22:00 11/06/24 23:42 Risperidone 0.5 Mg Tablet PO 11/13/24 22:01 0.5 mg QHS SOLEDAD Administration Protocol Risperidone 0.25 mg 11/14/24 22:00 Risperidone 0.25 Mg Tablet PO 11/21/24 22:01 QHS SOLEDAD Protocol Senna/Docusate Sodium 2 tablet 11/06/24 22:00 11/07/24 08:20 Senna/Docusate Sodium 1 Tablet PO 2 tablet BID SOLEDAD Administration Sodium Chloride 2 spray 11/06/24 14:33 Sodium Chloride 0.65% 1 [place].Btl NASAL BID PRN nasal congestion Tuberculin PPD 0.1 ml 11/14/24 10:00 Tuberculin,Purif.Prot.Deriv. 50 Tu/Ml Vial ID 11/14/24 10:01 X1 ONE Problem List Acute on chronic heart failure with preserved ejection fraction (HFpEF) (Acute) Hyperlipidemia (Acute) Type 2 diabetes mellitus with hyperglycemia (Acute) Asthma (Acute) Vitamin D deficiency (Acute) GERD (gastroesophageal reflux disease) (Acute) Dysphagia (Acute) Aspiration pneumonia (Acute) Encephalopathy (Acute) Acute respiratory failure with hypoxia (Acute) Debility (Acute) Sepsis (Acute) Essential hypertension (Acute) Acute cholecystitis (Acute) Atrial fibrillation with RVR (Acute) Vital Signs Temp Pulse Resp BP Pulse Ox O2 Del Method O2 Flow Rate 97.6 F L 81 19 H 128/71 H 99 Room Air 2 11/07/24 13:06 11/07/24 13:06 11/07/24 13:06 11/07/24 13:06 11/07/24 13:59 11/07/24 13:06 11/07/24 14:18 Oxygen Flow Rate (L/min) 2 Oxygen Delivery Method Room Air Weight: 96.162 kg Body Mass Index (BMI) 28.7 Sodium 141 mmol/L (133-145) 11/07/24 07:11 Potassium 3.1 mmol/L (3.3-5.1) L 11/07/24 07:11 Chloride 102 mmol/L (98-108) 11/07/24 07:11 Carbon Dioxide 27.8 mmol/L (21.0-32.0) 11/07/24 07:11 Anion Gap 11 (5-15) 11/07/24 07:11 BUN 16 mg/dL (4-19) 11/07/24 07:11 Creatinine 1.37 mg/dL (0.70-1.20) H 11/07/24 07:11 Est GFR (MDRD) Non-Af 50 (>60) L 11/07/24 07:11 BUN/Creatinine Ratio 11.8 RATIO (10-20) 11/07/24 07:11 Glucose 101 mg/dL (70-99) H 11/07/24 07:11 Assessment/Plan: 1. Pain: acetaminophen 1000mg PO Q6H PRN pain 1-10. Resident has had 1 dose of Tylenol, per MAR, not given for pain. Please continue to monitor for PRN usage and increased pain. 2. Bowel: senna/docusate 2T PO BID and magnesium citrate 300mL PO daily PRN constipation. Resident has no received prn doses since admission. Last document bowel movement:11/05/24. Monitor for usage of prn medications, abdominal pain, frequency of bowel movements, diarrhea. Recommend holding bowel regimen if resident develops diarrhea. 3. Cholecystis/aspiration pneumonia: cefdinir 300mg PO BID thru 11/09/24 and metronidazole 500mg PO TID thru 11/09/24. Please continue to monitor for S/S of infection, diarrhea, stool discoloration. Cefdinir is renally dose medication. CrCl estimated = 44 ML. Dose appropriate for current renal function. Monitor serum creatine periodically. 4. Atrial fibrillation/chronic HFpEF: amiodarone 200mg PO TID thru 11/07/24 then 200mg PO BID 11/08-11/14 then 200mg daily thereafter, apixaban 5mg PO BID, furosemide 40mg PO daily PRN edema, hydralazine 25mg PO BID PRN blood pressure. No PRN doses have been given. Please continue to monitor BP (range 114/66-128/71), HR (range 68-86), sodium (last 141mmol/L), potassium (last 3.1mmol/L), S/S of bleeding, hemoglobin (last 12.9g/dL). 5. Asthma: albuterol MDI 1 puff 4x/day PRN SOB/wheezing and Trelegy 1 puff daily. No PRN doses given. Please continue to monitor for PRN usage, HR, thrush.Please rinse mouth with water and spit to prevent thrush. 6. Congestion: guaifenesin 1200mg PO BID. Please continue to monitor for congestion. 7. Hyperlipidemia: atorvastatin 40mg PO QHS. Please consider ordering a lipid panel as the last panel is from 09/2023. Thanks. Please continue to monitor LFTs (11/04/24) and muscle pain. 8. Diabetes Mellitus II: metformin 500mg PO BIDCM. Please continue to monitor hemoglobin A1c (last 6.3% 10/29/24), glucose (last 101mg/dL), diarrhea and GFR (last 50mL/min). 9. GERD: pantoprazole 20mg PO daily. Monitor for diarrhea (consider possibility of C. diff if develops). Consider serum magnesium level and B12 level with long-term use if indicated. 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 diff and fractures (Be[place]). 10. Dry nose: [place] nasal spray 2 sprays nasal BID PRN nasal congestion. No PRN doses given. Please continue to monitor for congestion and PRN usage. 11. Hypomagnesemia: magnesium chloride 64mg PO daily. Please continue to monitormagnesium (last 1.7mg/dL 11/03/24). 12. Insomnia: melatonin 10mg PO QHS. Please continue to monitor for excessive daytime drowsiness. 13. Skin irritation/Tinea Corporis Calmoseptine topical bid and Nystatin powder topical bid. Please continue to monitor. Assessment/Plan for indications treated with psychotropic medications: 1. Sundowning: risperidone 0.5mg PO QHS thru 11/13/24 then 0.25mg 11/14-11/21. GDR initiated. Monitor for drowsiness, dizziness or confusion, mental status, seizures. Monitor for constipation, urinary retention, dry mouth and blurred vision. Monitor for abnormal movements/movement disorders (including tremor, akathisia, dyskinesia, acute dystonia). Monitor for neuroleptic malignant syndrome (fever, muscle rigidity, mental status changes and hemodynamic instability). Monitor for orthostatic hypotension, including postural dizziness, syncope or falls. Implement fall prevention strategies. Check orthostatic vital signs if suspicion of orthostasis. Monitor for weight gain and check fasting lipid profile and fasting glucose or HbA1c as indicated (recommended baseline and annually). FLP =09/2023; HbA1c = 6.3% 10/29/24 QTc on last ECG = 469ms 11/03/24. Monitor for efficacy including resident symptoms, behaviors and indications of distress. Monitor for tolerability including mental status, cognition, excessivesleepiness, withdrawal or decreased participation in activities and decline in physical functioning. Maximize use of nonpharmacologic/behavioral interventions to facilitate dose reduction or discontinuation as appropriate. 2. Anxiety/restlessness/sleep: lorazepam 0.5mg PO Q4H PRN anxiety/restlessness/sleep. No PRN doses given. GDR not appropriate as this medication is new. Monitor for sedation, mental status and cognition. Monitor for falls (risk factor for falls) and implement fall prevention strategies. Monitor for respiratory depression. RR range since admission = 68-86. Monitor prn usage and efficacy of prn doses including resident symptoms, behaviors and indications of distress. Monitor for tolerability including mental status, cognition, excessive sleepiness, withdrawal or decreased participation in activities and decline in physical functioning. Maximize use of nonpharmacologic/behavior interventions to minimize use of prn medication. Prn psychotropic order must be renewed at 14 days per policy. Evaluate continued need for medication, effect of prn medication on resident?s symptoms/distress and tolerability to determine the appropriateness of order renewal. Medical chart and medication regimen reviewed. The following medication irregularities or issues were identified: 1. Atorvastatin 40mg PO QHS. Please consider ordering a lipid panel as the last panel is from 09/2023. Thanks. Date Date of Note: 11/07/24 Documented by User: Dr. Brandon Black MD 11/07/24 17:07 TCU RX Drug Regimen Review Provider Comments Provider responsibility Provider Comments to Recommendations by Pharmacy Agree 11/07/241705 <Electronically signed by Nessa Tinoco> Nessa Laird Signature (if applicable): 11/07/241706 <Electronically signed by Brandon Black MD> CC: ~ Signed [facility] Work Phone: 1(238) 106-156509-17-2025 NoteHNO ID: [id number] Author: ?, ?, ? Service: ? Author Type: ? Type: Progress Notes Filed: 11/07/2024 15:02 Note Text: POPULATION HEALTH NAVIGATION OUTREACH Action/ -0 HCC Wellness: Overdue since 02/22/2024 Flu: Due for dose 1 since 10/22/2024 MARVIN: Never Done KED (uacr AND efgr): Never Done Updated appt notes to address HCC/Care Gap Flipped appt to schedule wellness Called Patient: Patient answered and hun up, [facility] sent Reason for Outreach Care Gap/HCC or Scheduling Wellness Visits Care Gaps due: Diabetic Eye Exam KED Flu Vaccine Patient Contacted: Unable or unnecessary to reach patient: Unable to leave message Limeade message sent Updated appointment notes Flipped existing appointment Navigation Signature: Jody Flores November 07, 2024 2:55 [facility]09-17-2025 NotePatient Outreach (NETNAV) TAZ JOHNSON ([id number]) 1935 M Date Time Provider Department 11/07/24 DIPAK AGUILAR NETROSARIO During your visit today, we recorded the following information about you: Jody Flores 11/07/2024 3:02 PM Signed POPULATION HEALTH NAVIGATION OUTREACH Action/FYI -0 HCC Wellness: Overdue since 02/22/2024 Flu: Due for dose 1 since 10/22/2024 MARVIN: Never Done KED (uacr AND efgr): Never Done Updated appt notes to address HCC/Care Gap Flipped appt to schedule wellness Called Patient: Patient answered and hun up, [facility] sent Reason for Outreach Care Gap/HCC or Scheduling Wellness Visits Care Gaps due: Diabetic Eye Exam KED Flu Vaccine Patient Contacted: Unable or unnecessary to reach patient: Unable to leave message Limeade message sent Updated appointment notes Flipped existing appointment Navigation Signature: Jody Flores November 07, 2024 2:55 PM Allergies As [...] Population Health Navigation Outreach [3910] Cmt: Rory Stone Prescriptions as of 11/07/2024 - losartan (COZAAR) [...] exertion [R06.02] 09/05/2024 Encounter Status:Closed by JODY FLORES on 11/07/24[facility] 11-06-2024 [facility]09-16-2025 Progress note Author Junito [facility] Note Date/Time November 06, 2024 10:20am [facility] Medical Records Department [address] [place] [address] Progress Note - Infect Disease 11/06/24 1014 MR#: [id number] Acct: [id number] Name: TAZ JOHNSON Rep #:[id number] : 1935 89 From: Junito eastman MD PCP: Dr. Dipak Aguilar, DO Status:AD M IN Location: [place] [address] Physical Exam Narrative Feeling better, no fever, no abd pain Const alert and no apparent distress General Appearance: cooperative Resp normal air movement and clear to auscultation bilaterally Cardio regular rate and regular rhythm GI soft to palpation, non-tender and non-distended Skin no rashes or lesions noted ID ID: Route of nutrition/ use of supplements: [] Nutritional Intake: [] IV Site: [] Benavides Catheter: [] Assessment & Plan Assessment/Plan (1) Sepsis: (2) Acute cholecystitis: PLAN: Overall improved. Akash tube in place, surgery following. Cont ceftriaxone and flagyl for now. Plan on 2 more days abx, stop date 11/08/24. Can change to po augmentin 875mg bid at discharge. Will follow 11/06/24 1020 <Electronically signed by Junito Knowles MD> Cosigner Signature (if applicable): CC: ~ Signed [facility] Work Phone: 1(990) 380-691709-16-2025 Discharge summary Author Ilan Contreras [facility] Note Date/Time November 06, 2024 9:38am [facility] Medical Records Department [address] [place] [address] Discharge Summary 11/06/24 0937 MR#: [id number] Acct: [id number] Name: TAZ JOHNSON Rep #:[id number] : 1935 89 From: Ilan Contreras MD PCP: Dr. Dipak Aguilar, DO Status:AD M IN Location: [place] [address] Providers Date of Admission: 10/26/24 Date of Discharge: 11/06/24 Primary Care Physician: Dr. Dipak Aguilar, DO Consultations 10/27/24 00:32 Consult: General Surgery Routine Consulting Provider: Kenn Cavazos Reason for Consult: Acute cholecystitis EMERGENT Consult: No Notified: Yes Date Notified: 10/27/24 Time Notified: 00:02 Method of Notification: ED Physician Initiated Consult: State Historical Society Director / Pulmonary Medicine Routine Consulting Provider: [facility] Reason for Consult: Sepsis, Acute Cholecystitis, ? PNA EMERGENT Consult: No Notified: Yes Date Notified: 10/27/24 Time Notified: 06:35 Method of Notification: Text 10/29/24 13:35 Consult: Urology Routine Consulting Provider: Gerard Asencio Reason for Consult: Been unable to void, difficult, coud? Benavides with blood and clots. EMERGENT Consult: No Notified: Yes Date Notified: 10/29/24 Time Notified: [...] symptoms - Patient did develop urinary retention Benavides catheter placed patient started onFlomax with plans for patient to follow-up with primary urologist on discharge 13. Dyslipidemia ?Patient is on statin therapy, continued at home dose 14. 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 Patient is on apixaban 15. DVT prophylaxis ? On apixaban 16. Physical deconditioning ? Requested for PT OT eval and social insurance administrator to assist with discharge planning Time spent in the patient's overall evaluation,decision-making process, review of diagnostic data, adjustment of management, discussion with other providers, nursing nursing and ancillary staff involved in patient's care documentation, 50 Minutes Medications at Discharge Home Medications omeprazole 40 mg capsule,delayed release 20 mg PO DAILY reflux 07/22/15 albuterol sulfate 90 mcg/actuation breath activated powder inhaler 1 puff PO [id number] of breath 09/05/19 multivitamin 1 tab PO [...] Kenn Cavazos; Junito Knowles; Gerard Asencio; Genia Soctt Instructions Patient Instructions: KENZIE RN Abscess Drainage, KENZIE RN Procedural Sedation Additional Instructions / Restrictions: 1. Please get an appointment within the next 2 weeks to follow-up with your urologist at [facility] Discharge Orders/Prescriptions Prescriptions: New amiodarone 200 [...] 0 0RF Deep Sea Nasal 0.65 % Aerosol,[place] 2 spray NASAL BID PRN PRN (Reason: [...] Home Facility Charges/Coding Visit Charges Inpatient E&M: 37616 Disch Hosp >30min 11/06/24 0938 <Electronically signed by Ilan Contreras MD> Cosigner Signature (if applicable): CC: Dr. Ilan Contreras MD; Dr. Dipak Aguilar DO~ Signed [facility] Work Phone: 1(499) 357-846309-16-2025 Discharge summary Author Ilan Contreras [facility] Note Date/Time November 06, 2024 9:37am [facility] Medical Records Department [address] [place] [address] Transfer to [facility] MR#: [id number] Acct: [id number] Name: TAZ JOHNSON Rep #:[id number] : 1935 89 From: Ilan Contreras MD PCP: Dr. Dipak Aguilar, DO Status:AD M IN Certification of patient admission REQUIRED AT TIME OF ADMISSION. I CERTIFY THAT POST-HOSPITAL ECF SERVICES ARE REQUIRED TO BE GIVEN ON AN IN-PATIENT BASIS BECAUSE OF THE ABOVE NAMED PATIENT'S NEED FOR INTERMEDIATE CARE ON A CONTINUING BASIS FOR THE CONDITION(S) FOR WHICH HE/SHE WAS RECEIVING IN-PATIENT HOSPITAL SERVICES PRIOR TO HIS/HER TRANSFER TO THE ECF. 11/06/24 0937<Electronically signed by Ilan Contreras MD> [...] symptoms - Patient did develop urinary retention Benavides catheter placed patient started onFlomax with plans for patient to follow-up with primary urologist on discharge 13. Dyslipidemia ?Patient is on statin therapy, continued at home dose 14. 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 Patient is on apixaban 15. DVT prophylaxis ? On apixaban 16. Physical deconditioning ? Requested for PT OT eval and social insurance administrator to assist with discharge planning Time spent [...] diet to Regular with consistency/texture as per POLICE LIAISON OFFICER. Will add 120mL chocolate ensure plus HP [...] weeks to follow-up with your urologist at [facility] Discharge Orders/Prescriptions Prescriptions: New amiodarone 200 [...] PO Q4H PRN PRN (Reason: Fever, pain -11/30) Qty: 0 0RF sennosides-docusate sodium [Stimulant Laxative Plus] 8.6-50 mg Tablet 2 tab PO BID Qty: 0 0RF budesonide 0.5 mg/2 mL Suspension For Nebulization 0.5 mg inhalation BID.RT Qty: 0 0RF ipratropium bromide 0.02 % Solution 0.5 mg inhalation Q6HWA.RT Qty: 0 0RF Deep Sea Nasal 0.65 % Aerosol,[place] 2 spray NASAL BID PRN PRN (Reason: [...] Knowles MD; Dr. Kenn Cavazos MD ~ [facility] Work Phone: 1(574) 507-740109-16-2025 Progress note Author Kylee Rodriguez [facility] Note Date/Time November 06, 2024 7:55am [facility] Medical Records Department [address] [place] [address] Progress Note - Surgery 11/06/24 0710 MR#: [id number] Acct: [id number] Name: TAZ JOHNSON Rep #:[id number] : 1935 89 From: Kylee FLOYD PA-C PCP: Dr. Dipak Aguilar, DO Status:AD M IN Location: [place] [id number]- [id number] Subjective Subjective Patient evaluated resting comfortably in [...] as needed Charges/Coding Visit Charges Inpatient E&M: 96161 Subs Hosp L2 11/06/24 0758 <Electronically signed by Kylee FLOYD PA-C> Cosigner Signature (if applicable): CC: ~ Signed [facility] Work Phone: 1(131) 320-364609-16-2025 [facility]09-15-2025 Progress note Author [facility] Note Date/Time November 05, 2024 11:57am [facility] Medical Records Department [address] [place] [address] Progress Note - Infect Disease 11/05/24 1156 MR#: [id number] Acct: [id number] Name: TAZ JOHNSON Rep #:[id number] : 1935 89 From: Junito eastman MD PCP: Dr. Dipak Aguilar, DO Status:AD M IN Location: [place] [id number]- 1 Physical Exam Narrative Feeling better, no fever, no abd pain, no n/v/d. Const no apparent distress General Appearance: cooperative Orientation / Consciousness: lethargic Resp Auscultation: rhonchi Cardio regular rate and regular rhythm GI soft to palpation, non-tender and non-distended Skin no rashes or lesions noted ID ID: Route of nutrition/ use of supplements: [] Nutritional Intake: [] IV Site: [] Benavides Catheter: [] Assessment & Plan Assessment/Plan (1) [...] Cosigner Signature (if applicable): CC: ~ Signed [facility] Work Phone: 1(617) 116-912409-15-2025 Progress note Author Ilan Contreras [facility] Note Date/Time November 05, 2024 11:33am [facility] Medical Records Department [address] [place] [address] Progress Note - Hospitalist 11/05/24 1039 MR#: [id number] Acct: [id number] Name: TAZ JOHNSON Rep #:[id number] : 1935 89 From: Ilan Contreras MD PCP: Dr. Dipak Aguilar, DO Status:AD M IN Location: [place] [address] Reason for Visit Chief Complaint: Abdominal pain, [...] symptoms - Patient did develop urinary retention Benavides catheter placed patient started onFlomax with plans for patient to follow-up with primary urologist on discharge 13. Dyslipidemia ?Patient is on statin therapy, continued at home dose 14. 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 Patient is on apixaban 15. DVT prophylaxis ? On apixaban 16. Physical deconditioning ? Requested for PT OT eval and social insurance administrator to assist with discharge planning Time spent in the patient's overall evaluation,decision-making process, review of diagnostic data, adjustment of management, discussion with other providers, nursing nursing and ancillary staff involved in patient's care documentation, 50 Minutes Charges/Coding Visit Charges Inpatient E&M: 21876 Subs Hosp L3 Date medically ready for discharge: 11/02/24 Delay Comments: Awaiting acceptance from transitional care unit then will need [id number] due to IV Haldol being given 11/05/24 1133 <Electronically signed by Ilan Contreras MD> Cosigner Signature (if applicable): CC: ~ Signed [facility] Work Phone: 1(673) 640-717009-14-2025 Progress note Author Genia Scott [facility] Note Date/Time November 04, 2024 1:15pm [facility] Medical Records Department [address] [place] [address] Progress Note - Hospitalist 11/04/24 1305 MR#: [id number] Acct: [id number] Name: TAZ JOHNSON Rep #:[id number] : 1935 89 From: Genia Scott DO PCP: Dr. Dipak Aguilar, DO Status:AD M IN [facility] Reason for Visit Chief Complaint: [...] retention - Patient will need to maintain Benavides at the time of discharge per discussion with urology - Patient is to follow-up outpatient with his primary urologist in [place]--> Dr. Issa--> discussed with patient and family [...] obstruction - History of TURP - Maintain Benavides as this had to be placed by urology while inpatient and plan isoutpatient follow-up at his primary urologist in [place] - No other chronic regimen - Follows at [facility] GERD - P.o. PPI as ordered History of tobacco abuse - Remote DVT prophylaxis - Continue Eliquis CODE STATUS - Full code as verified on admission - Hospice and palliative care was consulted and was dismissed by the family Charges/Coding Visit Charges Inpatient E&M: 29734 Subs Hosp L2 Date medically ready for discharge: 11/02/24 Delay Comments: Awaiting acceptance from transitional care unit then will need [id number] due to IV Haldol being given 11/04/24 1315 <Electronically signed by Genia Scott DO> Cosigner Signature (if applicable): CC: ~ Signed [facility] Work Phone: 1(190) 599-991209-13-2025 Progress note Author Genia Scott [facility] Note Date/Time November 03, 2024 1:17pm [facility] Medical Records Department [address] [place] [address] Progress Note - Hospitalist 11/03/24 0721 MR#: [id number] Acct: [id number] Name: TAZ JOHNSON Rep #:[id number] : 1935 89 From: Genia Scott DO PCP: Dr. Dipak Aguilar, Status:AD M IN Location: [place] [address] Reason for Visit Chief Complaint: Abdominal pain, [...] IMPRESSION: No significant interval change. Reading Location: [facility] Rhythm Strip Rhythm Strip: A-fib Rate: 90 [...] retention - Patient will need to maintain Benavides at the time of discharge per discussion with urology - Patient is to follow-up outpatient with his primary urologist in [place]--> Dr. Issa DM-2 - Hold oral regimen [...] No other chronic regimen - Follows at [facility] GERD - P.o. PPI as ordered History of tobacco abuse - Remote DVT prophylaxis - Continue Eliquis CODE STATUS - Full code as verified on admission - Hospice and palliative care was consulted and was dismissed by the family Charges/Coding Visit Charges Inpatient E&M: 40556 Subs Hosp L2 Date medically ready for discharge: 11/02/24 Delay Comments: Awaiting acceptance from transitional care unit then will need [id number] due to IV Haldol being given 11/03/24 1317 <Electronically signed by Genia Scott DO> Cosigner Signature (if applicable): CC: ~ Signed [facility] Work Phone: 1(277) 970-471609-13-2025 Progress note Author Arlin Paniagua [facility] Note Date/Time November 02, 2024 11:00pm [facility] Medical Records Department [address] [place] [address] Progress Note - Hospitalist 11/02/241 MR#: [id number] Acct: [id number] Name: TAZ JOHNSON Rep #:[id number] : 1935 89 From: Arlin Meraz PCP: Dr. Dipak Aguilar, DO Status:AD M [place] Location: [place] [address] Hospitalist Note 222 While rounding, noted telemetry alarming for severe [...] Cosigner Signature (if applicable): CC: ~ Signed [facility] Work Phone: 1([phone]) 373-240809-12-2025 Radiology Diagnostic study [facility]09-12-2025 Progress note Author Genia Scott [facility] Note Date/Time November 02, 2024 4:07pm [facility] Medical Records Department [address] [place] [address] Progress Note - Hospitalist 11/02/24 0734 MR#: [id number] Acct: [id number] Name: TAZ JOHNSON Rep #:[id number] : 1935 89 From: Genia Scott DO PCP: Dr. Dipak Aguilar, DO Status:AD M [place] Location: [place] [address]- 1 Reason for Visit Chief Complaint: Abdominal [...] Balance 640.0 / 640.0 1220 / 1220 20 / 20 Lab / Micro Data 11/02/24 04:59 11/02/24 [...] retention - Patient will need to maintain Benavides at the time of discharge per discussion with urology - Patient is to follow-up outpatient with his primary urologist in [place] DM-2 - Hold oral regimen is on [...] No other chronic regimen - Follows at [facility] GERD - Continue PPI and transition to oral as able History of tobacco abuse - Remote DVT prophylaxis - Continue Eliquis CODE STATUS - Full code as verified on admission - Hospice and palliative care was consulted and was dismissed by the family Charges/Coding Visit Charges Inpatient E&M: 29561 Subs Hosp L2 Date medically ready for discharge: 11/02/24 Delay Comments: Awaiting acceptance from transitional care unit then will need tar-LOWO-lfufvhl due to IV Haldol being given 11/02/24 1607 <Electronically signed by Genia Scott DO> Cosigner Signature (if applicable): CC: ~ Signed [facility] Work Phone: [phone] 620-175809-11-2025 Progress note Author Genia Scott [facility] Note Date/Time November 01, 2024 7:21pm [facility] Medical Records Department [address] [place] [address] Progress Note - Hospitalist 11/01/24 0747 MR#: [id number] Acct: [id number] Name: TAZ JOHNSON Rep #:[id number] : 1935 89 From: Genia Scott DO [...] 77.1 H, Lymph % (Auto) 9.7 L, [place] % (Auto) 7.7, Eos % (Auto) 2.2, [...] is stable - Would like to discontinue Benavides tomorrow as long as he is more [...] - Monitor for retention after discontinuation of Benavides GERD - Continue PPI and transition to oral as able History of tobacco abuse - Remote DVT prophylaxis - Continue Eliquis CODE STATUS - Full code as verified on admission - Hospice and palliative care was consulted and was dismissed by the family Charges/Coding Visit Charges Inpatient E&M: 51949 Subs Hosp L2 11/01/241920 <Electronically signed by Genia Scott DO> Cosigner Signature (if applicable): CC: ~ Signed [facility] Work Phone: [phone]) 373-737909-11-2025 Progress note Author Junito Knowles [facility] Note Date/Time November 01, 2024 10:09am [facility] Medical Records Department [address] [place] [address] Progress Note - Infect Disease 11/01/24 1007 MR#: [id number] Acct: [id number] Name: TAZ JOHNSON Rep #:[id number] : 1935 89 From: Junito eastman MD PCP: Dr. Dipak Aguilar, Status:AD M [...] [] Nutritional Intake: [] IV Site: [] Benavides Catheter: [] Assessment & Plan Assessment/Plan (1) [...] Cosigner Signature (if applicable): CC: ~ Signed [facility] Work Phone: [phone] Progress note Author Kylee Rodriguez [facility] Note Date/Time November 01, 2024 9:42am [facility] Medical Records Department [address] [place] [address] Progress Note - Surgery 11/01/24 0758 MR#: [id number] Acct: [id number] Name: TAZ JOHNSON Rep #:[id number] : 1935 89 From: Kylee FLOYD PA-C [...] 77.1 H, Lymph % (Auto) 9.7 L, [place] % (Auto) 7.7, Eos % (Auto) 2.2, [...] this patient Charges/Coding Visit Charges Inpatient E&M: 90799 Subs Hosp L2 11/01/24 0911 <Electronically signed [...] Cosigner Signature (if applicable): cc: ~* Signed [facility] Work Phone: [phone]) 842-473409-10-2025 Progress note Author Airam Ordonez [facility] Note Date/Time October 31, 2024 3:23pm [facility] Medical Records Department [address] [place] [address] Progress Note - Palliative 10/31/24 1448 MR#: [id number] Acct: [id number] Name: TAZ JOHNSON Rep #:[id number] : 1935 89 From: Airam DAVIDSON PCP: [...] code. She states that they live in [place] in the wintertime and that in March [...] did note that the patient had a Benavides catheter placed yesterday by urology related to urinary retention. I was able to note dark tea colored urine in the Benavides catheter bag. He also has a PERI [...] Former tobacco use who presents to the [facility] ED on 10/26/2024 with onset of [...] 10/31/24 14:00 10/31/24 14:00 10/31/24 14:00 10/31/24 14:10/31/24 14:00 10/31/24 14:00 10/31/24 13:30 Oxygen Flow [...] 83.5 H, Lymph % (Auto) 6.4 L, [place] % (Auto) 6.2, Eos % (Auto) 2.0, [...] recliner sleeping. Charges/Coding Palliative Care Palliative Care: 87554 Follow up 35-49 min Consulation Summary Current [...] present in the medical record? copy into [facility] Do you have a Healthcare Power Yes: Anika Johnson 10/27/24 00:42 of Torch Straightener? Is a Healthcare Power of No, requested patient bring 10/27/24 00:42 Torch Straightener present in the copy into [facility] medical rec Do You Want Additional Declined [...] a result of this Palliative Care Encounter: [[id number], [phone] ] minutes were spent in total for [...] Cosigner Signature (if applicable): CC: ~ Signed [facility] Work Phone: [phone] 307-248009-10-2025 Progress note Author Elaine Duenas [facility] Note Date/Time October 31, 2024 3:18pm [facility] Medical Records Department [address] [place] [address] Progress Note - State Historical Society Director 10/28/24 1008 MR#: [id number] Acct: [id number] Name: TAZ JOHNSON Rep #:[id number] : 1935 89 From: Elaine Rivero PCP: Dr. Dipak Aguilar, DO Status:AD M [...] mls @ 15 mls/hr 10/27/24 01:21 IV .[id number] PRN Saline Flush Sodium Chloride 250 mls @ 15 mls/hr 10/27/24 01:21 IV .Z85K41M PRN Additional IVPB Infusion Vancomycin HCl 750 mg/ Sodium 265 mls @ 250 mls/hr 10/27/24 13:30 10/28/24 03:20 Chloride IV Infused Q12H SOLEDAD Infusion Diltiazem HCl 125 mg/ Dextrose 125 mls @ 5 mls/hr 10/27/24 14:45 10/28/24 08:43 IV 5 mg/hr .Q25H SOLEDAD 5 mls/hr Administration Protocol 5 MG/HR Dextrose/Lactated Ringer's 1,000 mls @ 75 mls/hr 10/27/24 14:45 10/28/24 05:47 IV 75 mls/hr .B04X25K SOLEDAD Administration Lactated Ringer's 1,000 mls @ 75 mls/hr 10/28/24 09:45 IV 10/29/24 12:24 .C94S22X SOLEDAD Magnesium Sulfate 4 gm in 100 mls @ 25 mls/hr 10/28/24 09:34 IV 10/28/24 13:33 X1 ONE Insulin Human Lispro 0 unit 10/27/24 00:32 10/28/24 05:46 Insulin Lispro 100 Unit/Ml Insuln.Pen SC 1 u Q6 SOLEDAD Administration Protocol Ipratropium [place] 0.5 mg 10/27/24 00:32 10/28/24 06:58 Ipratropium [...] 09:30 Senna/Docusate Sodium 1 Tablet PO BID [facility] Sodium Chloride 10 - 40 ml 10/27/24 01:21 10/28/24 08:43 0.9% Saline Lock 10 Ml Syringe IV 10 ml UD PRN Administration SALINE FLUSH Vancomycin Protocol 1 lab 10/28/24 12:00 Vancomycin Trough/Random Due [facility] 10/28/24 14:00 DAILY [facility] Lab / Micro Data 10/28/24 05:39 10/28/24 [...] 90.7 H, Lymph % (Auto) 3.9 L, [place] % (Auto) 3.2, Eos % (Auto) 0.5, [...] left lung base infiltrate/pleural fluid. Reading Location: [facility] Assessment and Plan . Assessment and [...] by Kenn Cavazos MD> CC: ~ Signed [facility] Work Phone: [phone] 172-305609-10-2025 Progress note Author Kenn Cavazos [facility] Note Date/Time October 31, 2024 3:18pm [facility] Medical Records Department [address] [place] [address] Progress Note - Surgery 10/29/24 1225 MR#: [id number] Acct: [id number] Name: TAZ JOHNSON Rep #:[id number] : 1935 89 From: Kenn Cavazos MD [...] 90.7 H, Lymph % (Auto) 3.5 L, [place] % (Auto) 3.5, Eos % (Auto) 0.2, [...] 10/28/24 13:11 IMPRESSION: As above. Reading Location: [address] Chest X-Ray 10/28/24 14:10 IMPRESSION: Right PICC as above. Reading Location: [address] Physical Exam Narrative Patient is drowsy [...] Cosigner Signature (if applicable): CC: ~ Signed [facility] Work Phone: [phone] Progress note Author Khai Bose [facility] Note Date/Time October 31, 2024 2:17pm [facility] Medical Records Department [address] [place] [address] Progress Note - Hospitalist 10/31/24 0731 MR#: [id number] Acct: [id number] Name: TAZ JOHNSON Rep #:[id number] : 1935 89 From: Khai Rivero PCP: Dr. Dipak Aguilar, DO Status:AD M [...] 85.4 H, Lymph % (Auto) 5.6 L, [place] % (Auto) 6.4, Eos % (Auto) 1.1, [...] 83.5 H, Lymph % (Auto) 6.4 L, [place] % (Auto) 6.2, Eos % (Auto) 2.0, [...] Body Fluid Culture - Preliminary GNR lactose senior accounting manager GNR lactose senior accounting manager#2 10/26/24 15:55 Blood Culture (Wb) - Arm [...] reviewed in H&P. Surgeon is being consulted. State Historical Society Director consulted. Urinary antigens, respiratory panel and MRSA [...] 10/30: Cholecystostomy tube fluid growing GNR lactose senior accounting manager. Continue IV Zosyn. Vancomycin discontinued. MRSA nasal [...] A-fib RVR, on Cardizem drip 15 mg/h. Softlines Supervisor consulted. Patient putback on IV heparin drip. [...] w/ ISS. NPO. 10/28: Glucose is 111. 9/8: A1c 6.3%. Glucose 173. #9. Hypertension: BP [...] andaggressive management. Charges/Coding Visit Charges Inpatient E&M: 77925 Subs Hosp L3 10/31/24 0835 <Electronically signed by Khai Bose MD> Cosigner Signature (if applicable): CC: ~ Signed ADDENDUM by Dr. Khai Bose MD on 10/31/24 at 1417 Addendum Discussed with the palliative RN, Airam. She will have family meeting in the evening today 10/31/24 141<Electronically signed by Khai Bose MD> Cosigner Signature (if applicable): cc: ~* Signed [facility] Work Phone: [phone] Consult note Author Junito Knowles [facility] Note Date/Time October 31, 2024 1:37pm [facility] Medical Records Department [address] [place] [address] Consultation - Infectious Dx 10/31/24 1334 MR#: [id number] Acct: [id number] Name: TAZ JOHNSON Rep #:[id number] : 1935 89 From: Junito eastman MD [...] performed and neg except as noted above. [facility] Medical History Type 2 diabetes mellitus [...] 83.5 H, Lymph % (Auto) 6.4 L, [place] % (Auto) 6.2, Eos % (Auto) 2.0, [...] applicable): CC: Dr. Dipak Aguilar, DO~ Signed [facility] Work Phone: [phone]) 423-847109-10-2025 Procedure [facility] 10-31-2024 Consult note Author Cece Bella [facility] Note Date/Time October 31, 2024 9:23am [facility] Medical Records Department [address] [place] [address] Consultation - Cardiology 10/31/24 0904 MR#: [id number] Acct: [id number] Name: TAZ JOHNSON Rep #:[id number] : 1935 89 From: Cece Bella MD PCP: Dr. Dipak Aguilar DO Status:AD [...] can be transition back to his Eliquis. [facility] Medical History Type 2 diabetes mellitus [...] Psych cooperative Charges/Coding Visit Charges Inpatient E&M: 95072 Init Hosp L2 Objective Data Vital Signs: [...] 85.4 H, Lymph % (Auto) 5.6 L, [place] % (Auto) 6.4, Eos % (Auto) 1.1, [...] 83.5 H, Lymph % (Auto) 6.4 L, [place] % (Auto) 6.2, Eos % (Auto) 2.0, [...] 85.4 H, Lymph % (Auto) 5.6 L, [place] % (Auto) 6.4, Eos % (Auto) 1.1, [...] 83.5 H, Lymph % (Auto) 6.4 L, [place] % (Auto) 6.2, Eos % (Auto) 2.0, [...] applicable): CC: Dr. Dipak Aguilar, DO~ Signed [facility] Work Phone: [phone] Progress note Author Kylee Rodriguez [facility] Note Date/Time October 31, 2024 8:33am [facility] Medical Records Department [address] [place] [address] Progress Note - Surgery 10/31/24822 MR#: [id number] Acct: [id number] Name: TAZ JOHNSON Rep #:[id number] : 1935 89 From: Kylee FLOYD PA-C [...] 85.4 H, Lymph % (Auto) 5.6 L, [place] % (Auto) 6.4, Eos % (Auto) 1.1, [...] 83.5 H, Lymph % (Auto) 6.4 L, [place] % (Auto) 6.2, Eos % (Auto) 2.0, [...] this patient Charges/Coding Visit Charges Inpatient E&M: 83525 Subs Hosp L2 10/31/24 0833 <Electronically signed by Kylee FLOYD PA-C> Cosigner Signature (if applicable): CC: ~ Signed [facility] Work Phone: [phone] Progress note Author Khai Bose [facility] Note Date/Time October 30, 2024 1:56pm [facility] Medical Records Department [address] [place] [address] Progress Note - Hospitalist 10/30/24844 MR#: [id number] Acct: [id number] Name: TAZ JOHNSON Rep #:[id number] : 1935 89 From: Khai Rivero PCP: Dr. Dipak Aguilar, DO Status:AD M [...] Body Fluid Culture - Preliminary GNR lactose senior accounting manager GNR lactose senior accounting manager#2 10/26/24 15:55 Blood Culture (Wb) - Arm [...] in place. Laboratory results pending. Reading Location: [place] [address] Physical Exam Narrative Seen and examined No [...] reviewed in H&P. Surgeon is being consulted. State Historical Society Director consulted. Urinary antigens, respiratory panel and MRSA [...] 10/30: Cholecystostomy tube fluid growing GNR lactose senior accounting manager. Continue IV Zosyn. Vancomycin discontinued. MRSA nasal [...] w/ ISS. NPO. 10/28: Glucose is 111. 9/8: A1c 6.3%. Glucose 173. #9. Hypertension: BP [...] the discussion Charges/Coding Visit Charges Inpatient E&M: 15475 Subs Hosp L3 10/30/24 0902 <Electronically signed by Khai Bose MD> Cosigner Signature (if applicable): CC: ~ Signed ADDENDUM by Dr. Khai Bose MD on 10/30/24 at 1356 Addendum Positive fluid balance 2.75 L. Urine output 855 mL. Drainage amount 140 mL from PERI drain 10/30/24 1356<Electronically signed by Khai Bose MD> Cosigner Signature (if applicable): cc: ~* Signed [facility] Work Phone: [phone] Progress note Author Kylee Rodriguez [facility] Note Date/Time October 30, 2024 1:41pm [facility] Medical Records Department [address] [place] [address] Progress Note - Surgery 10/30/24 0709 MR#: [id number] Acct: [id number] Name: TAZ JOHNSON Rep #:[id number] : 1935 89 From: Kylee FLOYD PA-C [...] in place. Laboratory results pending. Reading Location: [place] [address] Physical Exam GI GI Narrative: Abdomen- slight [...] this patient Charges/Coding Visit Charges Inpatient E&M: 45051 Subs Hosp L2 10/30/24 0853 <Electronically signed [...] Cosigner Signature (if applicable): cc: ~* Signed [facility] Work Phone: [phone] 281-403309-09-2025 Consult note Author Airam gonzales [facility] Note Date/Time October 30, 2024 1:34pm [facility] Medical Records Department [address] [place] [address] Consultation - Palliative Care 10/30/24941 MR#: [id number] Acct: [id number] Name: TAZ JOHNSON Rep #:[id number] : 1935 89 From: Airam DAVIDSON PCP: Dr. Dipak Aguilar, DO Status:AD M IN Location: ICU CVICU20 1-1 [facility] Medical History Type 2 diabetes mellitus [...] this time Charges/Coding Palliative Care Palliative Care: 63336 New Pt Consult 80+ min HPI Current [...] code. She states that they live in [place] in the wintertime and that in March [...] did note that the patient had a Benavides catheter placed yesterday by urology related to urinary retention. I was able to note dark tea colored urine in the Benavides catheter bag. He also has a PERI [...] Former tobacco use who presents to the [facility] ED on 10/26/2024 with onset of [...] present in the medical record? copy into [facility] Do you have a Healthcare Power Yes: Anika Johnson 10/27/24 00:42 of Torch Straightener? Is a Healthcare Power of No, requested patient bring 10/27/24 00:42 Torch Straightener present in the copy into [facility] medical rec Do You Want Additional Declined 10/27/24 00:42 Information on Advanced Directives or Healthcare Proxy/DPOA comments: daughter Edel [phone] Anika [phone] Psychosocial/Spiritual Information Living situation/Marital status: (all information from pt ) Geographic location: [place] Supports: family Mormonism/Sariah or spiritual preference: Presybeterian Spiritual distress: none Prior functional status: All ADL's prior to hospital and driving. daughter is POLICE LIAISON OFFICER and helping with swallow Assistive devices at [...] Body Fluid Culture - Preliminary GNR lactose senior accounting manager GNR lactose senior accounting manager#2 10/26/24 15:55 Blood Culture (Wb) - Arm [...] in place. Laboratory results pending. Reading Location: [place] [address] Rhythm Strip Rhythm Strip: A-fib Rate: 140 [...] a result of this Palliative Care Encounter: [[id number], [phone] ] minutes were spent in total for [...] applicable): CC: Dr. Dipak Aguilar, DO~ Signed [facility] Work Phone: [phone] 250-568209-09-2025 Progress note Author Goran Bowens [facility] Note Date/Time October 30, 2024 10:06am [facility] Medical Records Department [address] [place] [address] Progress Note - State Historical Society Director 10/30/24 0736 MR#: [id number] Acct: [id number] Name: TAZ JOHNSON Rep #:[id number] : 1935 89 From: Goran Bowens DO PCP: Dr. Dipak Aguilar, DO Status:AD [...] the patient. This note was generated with Data[employer]here dictation software. It may contain incorrectwords, spelling, [...] aspirate is positive for gram-negative rods, lactose senior accounting manager. Vital Signs: Vital Signs Temp Pulse Resp [...] in place. Laboratory results pending. Reading Location: [place] [address] Physical Exam Const Constitutional Narrative: The patient [...] flat affect Charges/Coding Visit Charges Inpatient E&M: 08153 Subs Hosp L2 10/30/24 1006 <Electronically signed by Goran Bowens DO> Cosigner Signature (if applicable): CC: ~ Signed [facility] Work Phone: [phone] Consult note Author Gerard Asencio [facility] Note Date/Time October 29, 2024 2:41pm [facility] Medical Records Department [address] [place] [address] Consultation 10/29/24 1439 MR#: [id number] Acct: [id number] Name: TAZ JOHNSON Rep #:[id number] : 1935 89 From: Gerard Asencio MD PCP: Dr. Dipak Aguilar, DO Status:AD M [place] Location: ICU CVICU20 1-1 HPI Consult Data Date of Consult: 10/29/24 HPI Narrative Reason for Consultation: Unable to place Benavides by staff HPI Narrative: TAZ JOHNSON, is a 89 M who presents to the hospital with elevated lactic acid sepsis acute cholecystitis nursing staff attempted to place a Benavides catheter by history he self caths with [...] wire was able to place a 16 Thai counciltip catheter into the bladder with return of dark urine. 10 cc were put into the balloon, he will need to go home with a catheter after discharge and follow-up with his urologist. Call me with questions [facility] Medical History Type 2 diabetes mellitus [...] 90.7 H, Lymph % (Auto) 3.5 L, [place] % (Auto) 3.5, Eos % (Auto) 0.2, [...] in place. Laboratory results pending. Reading Location: [place] [address] 10/29/24 [facility] <Electronically signed by Gerard Asencio MD> Cosigner Signature (if applicable): CC: Dr. Dipak Aguilar, ~ Signed [facility] Work Phone: [phone] 317-147409-08-2025 Progress note Author Khaialana Bose [facility] Note Date/Time October 29, 2024 1:46pm [facility] Medical Records Department [address] [place] [address] Progress Note - Hospitalist 10/29/24921 MR#: [id number] Acct: [id number] Name: TAZ JOHNSON Rep #:[id number] : 1935 89 From: Khai Rivero PCP: Dr. Dipak Aguilar DO Status:AD M [...] / 400 760 / 760 30 / Balance 4157.75 / 4157.75 2886.34 / 2886.34 [...] 90.7 H, Lymph % (Auto) 3.5 L, [place] % (Auto) 3.5, Eos % (Auto) 0.2, [...] left lung base infiltrate/pleural fluid. Reading Location: [id number] Chest X-Ray 10/28/24 13:11 IMPRESSION: As above. Reading Location: [id number] Chest X-Ray 10/28/24 14:10 IMPRESSION: Right PICC as above. Reading Location: [id number] Physical Exam Narrative Seen and examined Urine [...] reviewed in H&P. Surgeon is being consulted. State Historical Society Director consulted. Urinary antigens, respiratory panel and MRSA [...] DNR-CC status. Charges/Coding Visit Charges Inpatient E&M: 06585 Subs Hosp L3 10/29/24 1346 <Electronically signed by Khai Bose MD> Cosigner Signature (if applicable): CC: ~ Signed [facility] Work Phone: [phone] 446-858009-08-2025 [facility]09-08-2025 Radiology Diagnostic study [facility]09-08-2025 Progress note Author Ilan Oliver [facility] Note Date/Time October 29, 2024 10:30am [facility] Medical Records Department [address] [place] [address] Progress Note - State Historical Society Director 10/29/24 1019 MR#: [id number] Acct: [id number] Name: TAZ JOHNSON Rep #:[id number] : 1935 89 From: Ilan Rivero PCP: Dr. Dipak Aguilar, DO Status:AD M [...] Tablet PO Q4H PRN PRN Fever, pain 1-1010 Acetylcysteine 800 mg 10/28/24 09:30 10/29/24 07:16 [...] mls @ 15 mls/hr 10/27/24 01:21 IV .B44K16B PRN Saline Flush Sodium Chloride 250 mls @ 15 mls/hr 10/27/24 01:21 10/28/24 21:19 IV 0 mls/hr .F54W39N PRN Infusion Additional IVPB Infusion Dextrose/Lactated Ringer's 1,000 mls @ 75 mls/hr 10/27/24 14:45 10/29/24 09:18 IV 75 mls/hr .Q19C44Y SOLEDAD Administration Sodium Chloride 250 mls @ 15 mls/hr 10/29/24 09:00 IV 10/29/24 23:59 .C74X97I SOLEDAD Insulin Human Lispro 0 unit 10/27/24 00:32 10/29/24 05:25 Insulin Lispro 100 Unit/Ml Insuln.Pen SC Not Given Q6 [facility] Protocol Ipratropium [place] 0.5 mg 10/27/24 00:32 10/29/24 07:16 Ipratropium [...] 90.7 H, Lymph % (Auto) 3.5 L, [place] % (Auto) 3.5, Eos % (Auto) 0.2, [...] 10/28/24 13:11 IMPRESSION: As above. Reading Location: [id number] Chest X-Ray 10/28/24 14:10 IMPRESSION: Right PICC as above. Reading Location: [address] Assessment and Plan . Assessment and [...] Cosigner Signature (if applicable): CC: ~ Signed [facility] Work Phone: [phone] Progress note Author Kylee Rodriguez [facility] Note Date/Time October 29, 2024 9:58am [facility] Medical Records Department [address] [place] [address] Progress Note - Surgery 10/29/24951 MR#: [id number] Acct: [id number] Name: TAZ JOHNSON Rep #:[id number] : 1935 89 From: Kylee FLOYD PAGuevara PCP: Dr. Dipak Aguilar, DO Status:AD M [...] 90.7 H, Lymph % (Auto) 3.5 L, [place] % (Auto) 3.5, Eos % (Auto) 0.2, [...] left lung base infiltrate/pleural fluid. Reading Location: [id number] Chest X-Ray 10/28/24 13:11 IMPRESSION: As above. Reading Location: [address] Chest X-Ray 10/28/24 14:10 IMPRESSION: Right PICC as above. Reading Location: [address] Physical Exam GI GI Narrative: Abdomen- soft, [...] this patient Charges/Coding Visit Charges Inpatient E&M: 83535 Subs Hosp L2 10/29/24 0958 <Electronically signed by Kylee FLOYD PA-C> Cosigner Signature (if applicable): CC: ~ Signed [facility] Work Phone: [phone] Progress note Author Khai Bose [facility] Note Date/Time October 28, 2024 3:12pm [facility] Medical Records Department [address] [facility] [place] [address] Progress Note - Hospitalist 10/28/24823 MR#: [id number] Acct: [id number] Name: TAZ JOHNSON Rep #:[id number] : 1935 89 From: Khai Rivero PCP: Dr. Dipak Aguilar, DO Status:AD M [...] 90.7 H, Lymph % (Auto) 3.9 L, [place] % (Auto) 3.2, Eos % (Auto) 0.5, [...] reviewed in H&P. Surgeon is being consulted. State [employer] Director consulted. Urinary antigens, respiratory panel and MRSA [...] DNR-CC status. Charges/Coding Visit Charges Inpatient E&M: 13083 Subs Hosp L3 10/28/24 0935 <Electronically signed [...] NIPPV to help respiratory fatigue and tachypnea. State [employer] Director on board advised to call him. Till then I have ordered AIRVO Microbiology Past 72 Hours 10/27/24 19:15 Urine Catheter - Benavides Urine Culture - Preliminary Gram negative semaj 10/27/24 22:59 Mucosa - Nasopharyngeal Coronavirus COVID-19 PCR - Final 10/27/24 22:59 Mucosa - Nasopharyngeal Respiratory Panel (PCR) - Final 10/28/24 00:40 Urine Catheter - Benavides Legionella Antigen - Final 10/28/24 00:40 Urine Catheter - Benavides Streptococcus pneumoniae Antigen (M - Final Laboratory Results 10/27/24 19:15: WBC 8.1, RBC 3.42 L, Hgb 10.6 L, Hct 30.5 L, MCV 89.2, MCH 31.0,MCHC 34.8, RDW Std Deviation 42.3, RDW Coeff of Pollo 13.1, Plt Count 136 L, MPV 11.2, Immature Gran % (Auto) 0.500, Neut % (Auto) 70.9 H, Lymph % (Auto) 19.9, [place] % (Auto) 5.4, Eos % (Auto) 2.7, [...] Clarity Clear, Urine pH 6.5, Ur Specific Marshall 1.010, Urine Protein 30 H, Urine Glucose [...] % (Auto) 59.9, Lymph % (Auto) 26.3, [place] % (Auto) 8.2, Eos % (Auto) 4.3, [...] Cosigner Signature (if applicable): cc: ~* Signed [facility] Work Phone: 1(860) 421-793609-07-2025 Consult note Author Jeffrey Guerrero [facility] Note Date/Time October 28, 2024 2:08pm [facility] Medical Records Department [address] [place] [address] Pharmacokinetic/Renal -Consult 10/28/24 1407 MR#: [id number] Acct: [id number] Name: TAZ JOHNSON Rep #:[id number] : 1935 89 From: Jeffrey Braswell [facility] PCP: Dr. Dipak Aguilar, DO Status:AD M [...] 10/28/24 1408 <Electronically signed by Jeffrey Amado [facility]> Date _ Jeffrey Guerrero [facility] Cosigner Signature (if applicable): Date CC: ~ Signed [facility] Work Phone: [phone]) [phone] Progress note Author Kenn Cavazos [facility] Note Date/Time October 28, 2024 1:40pm [facility] Medical Records Department [address] [place] [address] Progress Note - Surgery 10/28/24 1335 MR#: [id number] Acct: [id number] Name: TAZ JOHNSON Rep #:[id number] : 1935 89 From: Kenn Cavazos MD [...] 90.7 H, Lymph % (Auto) 3.9 L, [place] % (Auto) 3.2, Eos % (Auto) 0.5, [...] left lung base infiltrate/pleural fluid. Reading Location: [id number] Physical Exam Narrative He is alert and [...] medical management Charges/Coding Visit Charges Inpatient E&M: 02226 [facility] Hosp 10/28/24 1340 <Electronically signed by Kenn Cavazos MD> Cosigner Signature (if applicable): CC: ~ Signed [facility] Work Phone: 1([phone]) 312-150709-07-2025 Radiology Diagnostic study [facility]09-07-2025 Radiology Diagnostic study [facility]09-07-2025 Radiology Diagnostic study [facility] 10-27-2024 Consult note Author Kenn [facility] Note Date/Time October 27, 2024 3:19pm [facility] Medical Records Department [address] [place] [address] Consultation - Surgical 10/27/24 1454 MR#: [id number] Acct: [id number] Name: TAZ JOHNSON Rep #:[id number] : 1935 89 From: Kenn Cavazos MD [...] 89 M who presented yesterday afternoon to [facility] emergency department with abdominal pain that [...] he was hospitalized in the ICU in [place]. He was intubated I believe for about 5 days. He spent a month in the hospital and then went to rehab before returning to [place] in May. The patient was admitted to [...] being followed by medicine as well as sharepoint developer. 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 Reading Location: [facility] Gallbladder Ultrasound 10/26/24 18:37 IMPRESSION: 1. Distended gallbladder with gallstones, sludge, wall thickening and pericholecystic edema. Correlate clinically for signs of acute cholecystitis. 2. Mildly nodular liver contour with coarsened echotexture. This could represent early signs of hepatic cirrhosis. 3. Minimal ascites. Reading Location: [facility] Echocardiogram 10/27/24 00:32 Interpretation Summary The estimated ejection fraction is 70 %. The left atrium is mildly enlarged. The right atrium is mildly enlarged. Trivial mitral valve insufficiency. Ordering Physician: Fernanda Triplett Referring Physician: Dipak Aguilar Performed By: Citlalli Arzate, RDCS, RVT 10/27/24 1519 <Electronically signed by Kenn Cavazos MD> Cosigner Signature (if applicable): CC: Dr. Dipak Aguilar, DO~ Signed [facility] Work Phone: 1(335) 221-512909-06-2025 Progress note Author Elaien [facility] Note Date/Time October 27, 2024 2:49pm [facility] Medical Records Department [address] [place] [address] Progress Note - State Historical [employer] Director 10/27/24 1447 MR#: [id number] Acct: [id number] Name: TAZ JOHNSON Rep #:[id number] : 1935 89 From: Elaine Rivero PCP: Dr. Dipak Aguilar, DO Status:AD IN Location: ICU CVICU 3-1 Objective Data Objective Data Vital Signs: [...] mls @ 15 mls/hr 10/27/24 01:21 IV .[id number] PRN Saline Flush Sodium Chloride 250 mls @ 15 mls/hr 10/27/24 01:21 IV .[id number] PRN Additional IVPB Infusion Vancomycin HCl 750 [...] mls @ 75 mls/hr 10/27/24 14:45 IV .[id number] [facility] Insulin Human Lispro 0 unit 10/27/24 00:32 10/27/24 11:49 Insulin Lispro 100 Unit/Ml Insuln.Pen SC Not Given Q6 [facility] Protocol Ipratropium [place] 0.5 mg 10/27/24 00:32 10/27/24 11:40 Ipratropium [...] Vancomycin Trough/Random Due MC 10/28/24 14:00 DAILY [facility] Lab / Micro Data 10/27/24 06:23 10/27/24 06:23 Labs: Laboratory Results - last 24 hr 10/26/24 18:04: WBC 15.8 H, RBC 5.16, Hgb 15.2, Hct 45.8, MCV 88.8, MCH 29.5, MCHC 33.2, RDW Std Deviation 49.2 H, RDW Coeff of Pollo 15.2 H, Plt Count 285, MPV10.5, Immature Gran % (Auto) 1.400 H, Neut % (Auto) 81.0 H, Lymph % (Auto) 10.5 L, [place] % (Auto) 6.0, Eos % (Auto) 0.4, [...] 91.2 H, Lymph % (Auto) 3.1 L, [place] % (Auto) 4.2, Eos % (Auto) 0.0, [...] 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 Reading Location: [facility] Gallbladder Ultrasound 10/26/24 18:37 IMPRESSION: 1. Distended gallbladder with gallstones, sludge, wall thickening and pericholecystic edema. Correlate clinically for signs of acute cholecystitis. 2. Mildly nodular liver contour with coarsened echotexture. This could represent early signs of hepatic cirrhosis. 3. Minimal ascites. Reading Location: [facility] Echocardiogram 10/27/24 00:32 Interpretation Summary The estimated ejection fraction is 70 %. The left atrium is mildly enlarged. The right atrium is mildly enlarged. Trivial mitral valve insufficiency. Ordering Physician: Fernanda Triplett Referring Physician: Dipak Aguilar Performed By: Citlalli Arzate, ANUPAMA, RVT Assessment and Plan . Assessment and [...] this encounter was done via Telemedicine 10/27/24 4158 <Electronically signed by Elaine Duenas MD> Cosigner Signature (if applicable): CC: ~ Signed [facility] Work Phone: [phone]) [phone] Progress note Author Khai Bose [facility] Note Date/Time October 27, 2024 12:08pm [facility] Medical Records Department [address] [place] [address] Progress Note - Hospitalist 10/27/24 0733 MR#: [id number] Acct: [id number] Name: TAZ JOHNSON Rep #:[id number] : 1935 89 From: Khai Rivero PCP: Dr. 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 Reading Location: [facility] Gallbladder Ultrasound 10/26/24 18:37 IMPRESSION: 1. Distended gallbladder with gallstones, sludge, wall thickening and pericholecystic edema. Correlate clinically for signs of acute cholecystitis. 2. Mildly nodular liver contour with coarsened echotexture. This could represent early signs of hepatic cirrhosis. 3. Minimal ascites. Reading Location: [facility] Physical Exam Narrative Seen and examined Patient admitted with right upper quadrant pain and chills and nausea. Denies any vomiting. Has chronic dyspnea on exertion with climbing stairs. As per hiswife at home his blood pressure goes high and low and heart rate also not controlled. She kept a log of BP and pulse ox but there was no heart rate. On monitor worker patient afebrile RVR, heart rate variable from [...] reviewed in H&P. Surgeon is being consulted. State Historical [employer] Director consulted. Urinary antigens, respiratory panel and MRSA [...] DNR-CC status. Charges/Coding Visit Charges Inpatient E&M: 50909 Subs Hosp L3 10/27/24 1208 <Electronically signed by Khai Bose MD> Cosigner Signature (if applicable): CC: ~ Signed [facility] Work Phone: [phone] Consult note Author Jacky Blackwood [facility] Note Date/Time October 27, 2024 8:02[facility] Medical Records Department [address] [facility] [place] [address] Consultation - State Historical Society Director 10/27/24 0649 MR#: [id number] Acct: [id number] Name: TAZ JOHNSON Rep #:[id number] : 1935 89 From: Jacky Blackwood MD [...] Atorvastatin Calcium 40 Mg Tablet PO QHS [facility] Calamine/Phenol 1 applic 10/27/24 10:00 Menthol/Lanolin/Calamine/Znox 113 Gm Tube TOPICAL 4X/DAY [facility] Protocol Glucagon 1 mg 10/27/24 00:32 Glucagon [...] 10/27/24 01:16 IV 10/27/24 07:39 75 mls/hr .[id number] [facility] Administration Vancomycin IV-PHARMACY TO DOSE 500 mls @ 250 mls/hr 10/27/24 00:32 1 each/ Sodium Chloride IV X1 PRN Rx to Dose Protocol Pantoprazole Sodium 40 mg/ 100 mls @ 330 mls/hr 10/27/24 00:32 10/27/24 01:35 Sodium Chloride IV Infused Q12 [facility] Infusion Piperacillin Sod/Tazobactam 50 mls @ 12.5 mls/hr 10/27/24 06:00 10/27/24 06:27 Sod 3.375 gm/ Sodium Chloride IV 12.5 mls/hr Q8 [facility] Administration Azithromycin 500 mg/ Sodium 255 mls @ 255 mls/hr 10/27/24 10:00 Chloride IV 11/01/24 10:01 Q24 [facility] Dextrose 250 mls @ 0 mls/hr 10/27/24 00:32 Dextrose 10%-Water IV .Q0M PRN HYPOGLYCEMIA Protocol As Directed Sodium Chloride 250 mls @ 15 mls/hr 10/27/24 01:21 IV .[id number] PRN Saline Flush Sodium Chloride 250 mls @ 15 mls/hr 10/27/24 01:21 IV .[id number] PRN Additional IVPB Infusion Vancomycin HCl 750 mg/ Sodium 265 mls @ 250 mls/hr 10/27/24 13:30 Chloride IV Q12H [facility] Insulin Human Lispro 0 unit 10/27/24 00:32 10/27/24 06:27 Insulin Lispro 100 Unit/Ml Insuln.Pen SC Not Given Q6 [facility] Protocol Ipratropium [place] 0.5 mg 10/27/24 00:32 Ipratropium 0.5 Mg/2.5 Ml Solution INHALATION Q4HWA.RT [facility] Melatonin 3 mg 10/27/24 00:32 Melatonin 3 Mg Tablet PO QHS PRN PRN INSOMNIA Metoprolol Tartrate 50 mg 10/27/24 10:00 Metoprolol Tartrate 50 Mg Tablet PO BID [facility] Protocol Morphine Sulfate 2 mg 10/27/24 00:32 [...] 1 lab 10/28/24 12:00 Vancomycin Trough/Random Due 10/28/24 14:00 DAILY [facility] Lab / Micro Data 10/27/24 06:23 10/27/24 06:23 Labs: Laboratory Results - last 24 hr 10/26/24 18:04: WBC 15.8 H, RBC 5.16, Hgb 15.2, Hct 45.8, MCV 88.8, MCH 29.5, MCHC 33.2, RDW Std Deviation 49.2 H, RDW Coeff of Pollo 15.2 H, Plt Count 285, MPV10.5, Immature Gran % (Auto) 1.400 H, Neut % (Auto) 81.0 H, Lymph % (Auto) 10.5 L, [place] % (Auto) 6.0, Eos % (Auto) 0.4, [...] 91.2 H, Lymph % (Auto) 3.1 L, [place] % (Auto) 4.2, Eos % (Auto) 0.0, [...] 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 Reading Location: [facility] Gallbladder Ultrasound 10/26/24 18:37 IMPRESSION: 1. Distended gallbladder with gallstones, sludge, wall thickening and pericholecystic edema. Correlate clinically for signs of acute cholecystitis. 2. Mildly nodular liver contour with coarsened echotexture. This could represent early signs of hepatic cirrhosis. 3. Minimal ascites. Reading Location: [facility] Assessment and Plan . Assessment and plan: [...] applicable): CC: Dr. Dipak Aguilar, DO~ Signed [facility] Work Phone: [phone]) [phone] Consult note Author Jesse Robin [facility] Note Date/Time October 27, 2024 3:49am [facility] Medical Records Department [address] [place] [address] Pharmacokinetic/Renal -Consult 10/27/248 MR#: [id number] Acct: [id number] Name: TAZ JOHNSON Rep #:[id number] : 1935 89 From: Jesse Obrien od [...] Signature (if applicable): Date CC: ~ Signed [facility] Work Phone: [phone] History and physical note Author Fernanda Triplett [facility] Note Date/Time October 27, 2024 1:05am [facility] Medical Records Department [address] [place] [address] H&P Exam - Hospitalist 10/26/242 MR#: [id number] Acct: [id number] Name: TAZ JOHNSON Rep #:[id number] : 1935 89 From: Fernanda Triplett MD PCP: Dr. Dipak Aguilar, DO Status:AD M IN Location: ICU CVICU 3-1 HPI - General General Date of [...] Former tobacco use who presents to the [facility] ED on 10/26/2024 with onset of [...] Tuesday, may be percutaneous drain but uncertain. 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 Reading Location: [facility] Gallbladder Ultrasound 10/26/24 18:37 IMPRESSION: 1. Distended gallbladder with gallstones, sludge, wall thickening and pericholecystic edema. Correlate clinically for signs of acute cholecystitis. 2. Mildly nodular liver contour with coarsened echotexture. This could represent early signs of hepatic cirrhosis. 3. Minimal ascites. Reading Location: [facility] Assessment & Plan Assessment/Plan (1) Sepsis: (2) Acute cholecystitis: PLAN: Plan The patient is an 89 y/o M w/ PMHx: GERD, Hx CVA w/ associated memory impairment, CKD stage III unclear subtype per GFR trending, Diabetes mellitus type II, PAF, HTN, HLD, GERD, Hx Histoplasmosis, BPH s/p TURP, Former tobacco use who presents to the [facility] ED on 10/26/2024 with onset of [...] Will admit to the ICU, will consult sharepoint developer per protocol, will maintain on IVFs with [...] per Hospitalist.) Charges/Coding Visit Charges Inpatient E&M: 00908 Init Hosp L3 Procedures Hospitalists Procedures: 48950 Advncd Care Plan 30 Min 10/27/24 0010 <Electronically signed by Fernanda Trpilett MD> Cosigner Signature (if applicable): CC: Dr. [...] MD; Dr. Dipak Aguilar DO ~* Signed [facility] Work Phone: [phone]) [phone] Evaluation note* Diagnosis Onset Date Resolution Status Admit Date Acute cholecystitis acute Octe 2024 10:50pm Anticoagulant long-term use acute October 26, 2024 10:50pm Atrial fibrillation with RVR acute October 26, 2024 10:50pm Dyspnea on exertion acute 2024 10:50pm Elevated blood pressure reading with diagnosis of hypertension acute October 26 10:50pm Essential hypertension acute Se pt2024 10:50pm Lactic acidosis acute October 26, 2024 10:50pm Palliative care encounter acute October 26, 2024 10:50pm Sepsis acute October 26, 2024 10:50pm Chronic a-fib chronic October 262024 10:50pm [facility] Work Phone: [phone]) [phone] Evaluation note* Diagnosis Onset Date Resolution Status Admit Date Anticoagulant long-term use acute October 26, 2024 10:50pm Essential hypertension acute Se pt2024 10:50pm Palliative care encounter acute October 26, 2024 10:50pm Chronic a-fib chronic October 262024 10:50pm Acute cholecystitis resolved 2024 10:50pm Atrial fibrillation with RVR resolve d October 26, 2024 10:50pm Dyspnea on exertion resolved 2024 10:50pm Elevated blood pressure reading with diagnosis of hypertension resolved October 26 10:50pm Lactic acidosis resolved October 26, 2024 10:50pm Sepsis resolved October 26, 2024 10:50pm Asthma acute October 1:35pm Debility acute October 1:35pm Dysphagia acute October 1:35pm Essential hypertension acute Se ptember 2024 1:35pm GERD (gastroesophageal reflu x disease) acute November 06, 2024 1:35pm Hyperlipidemia acute November 06, 2024 1:35pm Type 2 diabetes mellitus wit h hyperglycemia acute November 06, 2024 1:35pm Vitamin D deficiency acute Oct emb2024 1:35pm Acute cholecystitis resolved 2024 1:35pm Acute on chronic 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) resolved November 06, 2024 1:35pm Acute respiratory failure wi th hypoxia resolved November 06, 2024 1:35pm Aspiration pneumonia resolved Sept ember 2024 1:35pm Atrial fibrillation with RVR resolve d November 06, 2024 1:35pm Encephalopathy resolved November 06, 2024 1:35pm Sepsis resolved October 1:35pm [facility] Work Phone: [phone]) [phone] Discharge summary Author Akira Blanco [facility] Note Date/Time October 26, 2024 10:47pm [facility] Medical Records Department [address] [place] [address] Emergency Department Summary 10/26/24 MR#: [id number] Acct: [id number] Name: TAZ JOHNSON Rep #:[id number] : 1935 89 From: Akira Blanco MD PCP: Dr. Dipak Aguilar, DO Status:RE G ER Location: ED HPI History of Present Illness Chief Complaint: Nausea/Vomiting Narrative Narrative: 89-year-old male presents with right upper quadrant pain, nausea that has had since noon today after eating clam chowder from [employer]. This has been ongoing for the last [...] may have broken a rib from thefall. [facility] Medical History Type 2 diabetes mellitus Hyperlipidemia [...] he has a leukocytosis of 15.8 with lizdxvlrqf56.2, hematocrit 45.8, platelet count normal at 285. 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 Reading Location: [facility] Gallbladder Ultrasound 10/26/24 18:37 IMPRESSION: 1. Distended gallbladder with gallstones, sludge, wall thickening and pericholecystic edema. Correlate clinically for signs of acute cholecystitis. 2. Mildly nodular liver contour with coarsened echotexture. This could represent early signs of hepatic cirrhosis. 3. Minimal ascites. Reading Location: [facility] Management Discussion w/another healthcare provider: Hospitalist (Dr. Ree Triplett) and Circular Knitter (Dr. Cavazos general surgery) Critical Care Time Critical Care Time: Yes Critical care time (excluding procedures): 30-74 minutes (31), Including time spent:, Discussing w/Patient &/or Family/Geriatric Case Manager, Discussing w/Consultants, Arranging Admission or Transfer and Performing Direct Patient Care at Bedside Discharge Plan Dx/Rx/DC Orders Clinical Impression: Acute cholecystitis, Atrial fibrillation with RVR, Essential hypertension, Lactic acidosis, Sepsis Disposition Disposition: Acute Care [facility] What to do if you have Problems For any increased pain, shortness of breath, bleeding, nausea or vomiting, chestpain, or any unexpected problems, contact your Primary Care Provider. Call [facility] ([phone]) or report to the closest Emergency Room. Call 911 if necessary. 10/26/24 4888 <Electronically signed by Akira Blanco MD> Cosigner Signature (if applicable): CC: Dr. Dipak Aguilar, DO ~ Signed [facility] Work Phone: 1(464) [phone] History and physical note [facility] Medical Records Department [address] [place] [address] H&P Exam - Hospitalist 10/26/242 MR#: [id number] Acct: [id number] Name: TAZ JOHNSON Rep #:[id number] : 1935 89 From: Fernanda Triplett MD [...] Former tobacco use who presents to the [facility] ED on 10/26/2024 with onset of [...] intervention Tuesday, may be percutaneousdrain but uncertain. 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 Reading Location: [id number] Gallbladder Ultrasound 10/26/24 18:37 IMPRESSION: 1. Distended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 included)...[facility]07-16-2025 History of Present illness Narrative* Dipak Aguilar, DO - 09/05/2024 12:18 PM EDT CC: Taz [...] ofbreath with exertion. Has been seen by Softlines Supervisor but not scheduled to be seen until [...] GERD (gastroesophageal reflux disease) Melanoma (HCC) [address] Persistent atrial fibrillation (HCC) 10/11/2019 Admitted 09/05/2019 [facility]. Followed by [facility]. 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 ALLERGIES Allergen Reactions Boncarbo Other: See Comments sneezing,runny nose Winn Cough also [place] with same reaction Mold [...] parameters for hydralazine given today F/u with Softlines Supervisor for other recommendations Check weight and Spo2 and pulse and BLOOD PRESSURE daily and record readings - ECHO - PERFLUTREN LIPID MICROSPHERES 1.1 MG/ML INJECTION IN NS 10 ML - SODIUM CHLORIDE 0.9 % (FLUSH) INJECTION SYRINGE - HYDRALAZINE 25 MG TABLET 3. Pulmonary hypertension (HCC) - ICD9: 416.8, ICD10: I27.20 Recheck ECHO New parameters for hydralazine given today F/u with Softlines Supervisor for other recommendations Check weight and Spo2 [...] parameters for hydralazine given today F/u with Softlines Supervisor for other recommendations Check weight and Spo2 and pulse and BLOOD PRESSURE daily and record readings 7. SOB (shortness of breath) on exertion - ICD9: 786.05, ICD10: R06.02 Recheck ECHO New parameters for hydralazine given today F/u with Softlines Supervisor for other recommendations Check weight and Spo2 [...] parameters for hydralazine given today F/u with Softlines Supervisor for other recommendations Check weight and Spo2 and pulse and BLOOD PRESSURE daily and record readings Dipak Aguilar DO I spent 44 minutes in the visit, with more than 50% of the total [id number] time of the visit in counseling / coordination of care. Return if no improvement. Follow up with Dipak Aguilar DO. To ER if develops chest pain, shortness of breath. Discussed risks, benefits, alternatives, and potential side effects of medications. Patient/Guardian expressed understanding and agreed with the plan. See patient instructions. Dipak Aguilar DO [address] [place] [address] documented in this encounterOhiohealth Berger Hospital05-22-2025 NoteHNO ID: [id number] Author: RUMA CHI APRN.AUDIO VISUAL EQUIPMENT RENTAL CLERK Service: ? Author Type: Nurse Practitioner Type: [...] hospital reports in Mar) -ProBNP in April 2359 (4 years ago [phone]) -Albumin 3.8 last -Lipid panel unremarkable, on [...] breath, to seek immediate attention. Ruma Chi APRN.[facility]05-12-2025 NoteHNO ID: [id number] Author: ANALISA NICOLE MD Service: ? Author Type: Physician Type: Progress Notes Filed: 07/02/2024 16:22 Note Text: Analisa Nicole MD Interventional Cardiology [address] [address] [phone] Chief Complaint Patient presents with: Follow Up: [...] GERD (gastroesophageal reflux disease) Melanoma (HCC) [address] Conductor Persistent atrial fibrillation (HCC) 10/11/2019 Admitted 09/05/2019 [facility]. Followed by [facility]. PAST SURGICAL HISTORY Procedure Laterality [...] 2011 L Rotator cuff repair - bilateral [facility] PAST SURGICAL HISTORY OF plastic surgery [...] weekly Drug use: No ALLERGIES Allergen Reactions Boncarbo Other: See Comments sneezing,runny nose Winn Cough also cy[place] with same reaction Mold [...] current facility-administered medications (more content not included)... [facility]05-12-2025 History of Present illness Narrative* Analisa Nicole MD - 07/02/2024 4:17 PM EDT Images from the original note were not included. Analisa Nicole MD Interventional Cardiology [address] [place] [address] [phone] Chief Complaint Patient presents with: Follow Up: [...] GERD (gastroesophageal reflux disease) Melanoma (HCC) [address] Conductor Persistent atrial fibrillation (HCC) 10/11/2019 Admitted 09/05/2019 [facility]. Followed by [facility]. PAST SURGICAL HISTORY Procedure Laterality [...] 2011 L Rotator cuff repair - bilateral [facility] PAST SURGICAL HISTORY OF plastic surgery [...] weekly Drug use: No ALLERGIES Allergen Reactions Boncarbo Other: See Comments sneezing,runny nose Winn Cough also [place] with same reaction Mold [...] to correct any errors. documented in this encounterOhiohealth Berger Hospital05-08-2025 NoteHNO ID: [id number] Author: ELISA GARCIA APRN.AUDIO VISUAL EQUIPMENT RENTAL CLERK Service: ? Author Type: Nurse Practitioner Type: Progress Notes Filed: 06/28/2024 14:56 Note Text: 06/28/2024 Recording using [employer] software for draft documentation of the visit was discussed with the patient/authorized pharmacy sales representative; all questions welcomed and answered. Patient/authorized pharmacy sales representative agreed to proceed HPI: Taz is [...] GERD (gastroesophageal reflux disease) Melanoma (HCC) [address] Conductor Persistent atrial fibrillation (HCC) 10/11/2019 Admitted 09/05/2019 [facility]. Followed by [facility]. Current Outpatient Medications on File [...] mg daily; prescription sent to [facility] in [place] with a 30-day supply and refills. - [...] reviewed as needed. Follow up: Elisa Garcia APRN.CNPPrem[facility] History of Present illness Narrative* Elisa Garcia APRN.AUDIO VISUAL EQUIPMENT RENTAL CLERK - 06/28/2024 2:45 PM EDT 06/28/2024 Recording using [employer] software for draft documentation of the visit was discussed with the patient/authorized pharmacy sales representative; all questions welcomed and answered. Patient/authorized pharmacy sales representative agreed to proceed HPI: Taz is [...] GERD (gastroesophageal reflux disease) Melanoma (HCC) [address] Conductor Persistent atrial fibrillation (HCC) 10/11/2019 Admitted 09/05/2019 [facility]. Followed by [facility]. Current Outpatient Medications on File [...] to 100 mg daily; prescription sent to [facility] in [place] with a 30-day supply and refills. - [...] up: Elisa Garcia APRN.CNP documented in this encounterOhiohealth Berger Hospital05-08-2025 Instructions* Patient Instructions* Elisa Garcia APRN.CNP - 06/28/2024 2:06 PM EDT Increase the losartan to 100mg daily. I sent this prescription to [facility] in [place]. Continue checking blood pressures as you have been. Continue the hydralazine as needed for the top number greater than 165. Record this on the record you're keeping, no need to call us for this unless it doesn't improve. Continue the metoprolol 50mg twice daily. Increase the metformin for his diabetes to twice daily. Once with breakfast and once with supper. documented in this encounterOhiohealth Berger Hospital2025 NoteHNO ID: [id number] Author: OMAR TREADWELL APRN.CNP Service: ? Author Type: Nurse Practitioner Type: Progress Notes Filed: 06/14/2024 16:29 Note Text: [facility] INCIDENTAL LUNG NODULE PROGRAM Impression / Recommendations 1. Lung nodule (Primary) Nature and etiology of lung nodules discussed with patient. He was referred for new RUL 14 x 12 mm nodule from 12/05/2023 CT Chest done for cough and SOB. He wintered in [place] and went to the ER for pneumonia [...] No) Subsequent imaging 04/13/2024 CTA Chest in [place] showed resolution of the nodule of concern [...] 92.1 kg (203 lb) Modified Medical Research [place] Dyspnea Scale (MMRC) I get short of [...] is normal in caliber. (more content not included)...[facility]04-23-2025 NoteHNO ID: [id number] Author: ELISA GARCIA APRN.AUDIO VISUAL EQUIPMENT RENTAL CLERK Service: ? Author Type: Nurse Practitioner Type: [...] GERD (gastroesophageal reflux disease) Melanoma (HCC) [address] Conductor Persistent atrial fibrillation (HCC) 10/11/2019 Admitted 09/05/2019 [facility]. Followed by [facility]. Previous Surgical History PAST SURGICAL [...] 2011 L Rotator cuff repair - bilateral [facility] PAST SURGICAL HISTORY OF plastic surgery [...] Family History Patient Allergies ALLERGIES Allergen Reactions Boncarbo Other: See Comments sneezing,runny nose Winn Cough also cy[place] with same reaction Mold [...] Take 1 table (more content not included)... [facility]04-18-2025 Telephone encounter Note* Telephone Encounter - Citlalli Arnold RN - 06/08/2024 1:37 PM EDT 06/08/24 Omar Treadwell requests images from [place]: CTA Chest 04/13/[address] [facility] [address] [place] [address] Keisha pushing now via [employer]. Film arrived. Notified Omar. Citlalli Arnold RN Respiratory [place] [facility]04-18-2025 Miscellaneous Notes* Telephone Encounter - Citlalli Arnold RN - 06/08/2024 1:37 PM EDT 06/08/24 Omar Treadwell requests images from [place]: CTA Chest 04/13/[address] [facility] [address], [place] [phone] Keisha pushing now via [employer]. Film arrived. Notified Omar. Citlalli Arnold, RN Respiratory [place] [facility] documented in this encounterOhiohealth Berger Hospital04-18-2025 Telephone encounter Note * Telephone Encounter - Elisa Garcia APRN.CNP - 06/08/2024 10:24 AM EDT Noted, thank you. Elisa Garcia APRN.ESTIVEN [facility]04-18-2025 Miscellaneous Notes* Telephone Encounter - Elisa Garcia APRN.CNP - 06/08/2024 10:24 AM EDT Noted, thank you. Elisa Garcia APRN.AUDIO VISUAL EQUIPMENT RENTAL CLERK * Telephone Encounter - Tali Hogan RN - 06/07/2024 9:05 AM EDT Maximo with [facility] calls to let provider know that patient [...] daily. Tali Hogan RN documented in this encounterOhiohealth Berger Hospital04-17-2025 Telephone encounter Note * Telephone Encounter - Tali Hogan RN - 06/07/2024 9:05 AM EDT Maximo with [facility] calls to let provider know that patient [...] longer weighing himself daily. Tali Hogan RN [facility]04-10-2025 Miscellaneous Notes* Telephone Encounter - Evelio Jack RN - 05/31/2024 2:59 PM EDT Pharmacy called and error made in their system and metoprolol is covered by the patient's insurance. Evelio Jack RN documented in this encounterOhiohealth Berger Hospital04-10-2025 Telephone encounter Note * Telephone Encounter - Evelio Jack RN - 05/31/2024 2:59 PM EDT Pharmacy called and error made in their system and metoprolol is covered by the patient's insurance. Evelio Jack RN [facility]04-10-2025 Telephone encounter Note* Telephone Encounter - Laura [...] above. Please process accordingly. Laura Theodore LPN [facility]04-10-2025 Miscellaneous Notes* Telephone Encounter - Laura Theodore [...] left for patient to return call to [facility] to review if medication needs to go to local pharmacy. Office phone number provided. Carly Lazo LPN * Telephone Encounter - Carly Lazo LPN - 05/30/2024 5:13 PM EDT Voicemail msg left for patient to return call to [facility] to review if medication needs to go to local pharmacy. Office phone number provided. Carly Lazo LPN documented in this encounterOhiohealth Berger Hospital04-10-2025 Telephone encounter Note * Telephone Encounter - [...] above. Please process accordingly. Laura Theodore LPN [facility]04-10-2025 Miscellaneous Notes* Telephone Encounter - Laura Theodore [...] left for patient to return call to [facility] to review if medication needs to go to local pharmacy. Office phone number provided. Carly Lazo LPN * Telephone Encounter - Carly Lazo LPN - 05/30/2024 5:10 PM EDT Voicemail msg left for patient to return call to [facility] to review if medication needs to go to local pharmacy. Office phone number provided. Carly Lazo LPN documented in this encounterOhiohealth Berger Hospital04-10-2025 Telephone encounter Note * Telephone Encounter - Carly Lazo LPN - 05/31/2024 8:53 AM EDT Voicemail msg left for patient to return call to [facility] to review if medication needs to go to local pharmacy. Office phone number provided. Carly Lazo LPN [facility]04-10-2025 Telephone encounter Note* Telephone Encounter - Carly Lazo LPN - 05/31/2024 8:52 AM EDT Voicemail msg left for patient to return call to [facility] to review if medication needs to go to local pharmacy. Office phone number provided. Carly Lazo LPN [facility]04-10-2025 Telephone encounter Note* Telephone Encounter - Elisa [...] - Controlled E11.9 Insulin: Yes Elisa Garcia APRN.ESTIVEN [facility]04-10-2025 Miscellaneous Notes* Telephone Encounter - Elisa Garcia [...] 2 DM - Controlled E11.9 Insulin: Yes Eilsa Garcia APRN.ESTIVEN documented in this encounterOhiohealth Berger Hospital04-09-2025 Telephone encounter Note * Telephone Encounter - Carly Lazo LPN - 05/30/2024 5:13 PM EDT Voicemail msg left for patient to return call to [facility] to review if medication needs to go to local pharmacy. Office phone number provided. Carly Lazo LPN [facility]04-09-2025 Telephone encounter Note* Telephone Encounter - Carly Lazo LPN - 05/30/2024 5:10 PM EDT Voicemail msg left for patient to return call to [facility] to review if medication needs to go to local pharmacy. Office phone number provided. Carly Lazo LPN [facility]04-09-2025 Instructions* Patient Instructions* Elisa Garcia APRN.CNP - [...] for his next appt. documented in this encounterOhiohealth Berger Hospital04-09-2025 NoteHNO ID: [id number] Author: ELISA GARCIA APRN.CNP Service: ? Author [...] GERD (gastroesophageal reflux disease) Melanoma (HCC) [address] Conductor Persistent atrial fibrillation (HCC) 10/11/2019 Admitted 09/05/2019 [facility]. Followed by [facility]. Previous Surgical History PAST SURGICAL HISTORY Procedure Laterality Date ARTHRP ACETBLR/PROX FEM PROSTC AGRFT/ALGRFT Bilateral 2012 CHEMOSURG MOHS 1ST STAGE Right 06/09/2017 [facility] surgery - right lower leg COLONOSCOPY 06/07/2016 [...] 2011 L Rotator cuff repair - bilateral [facility] PAST SURGICAL HISTORY OF plastic surgery [...] Family History Patient Allergies ALLERGIES Allergen Reactions Boncarbo Other: See Comments sneezing,runny nose Winn Cough also [place] with same reaction Mold [...] use: No Review o (more content not included)...[facility]04-09-2025 History of Present illness Narrative* Elisa Garcia APRN.AUDIO VISUAL EQUIPMENT RENTAL CLERK - 05/30/2024 2:38 PM EDT Chief Complaint [...] GERD (gastroesophageal reflux disease) Melanoma (HCC) [address] Conductor Persistent atrial fibrillation (HCC) 10/11/2019 Admitted 09/05/2019 [facility]. Followed by [facility]. Previous Surgical History PAST SURGICAL [...] 2012 L Rotator cuff repair - bilateral [facility] PAST SURGICAL HISTORY OF plastic surgery [...] Family History Patient Allergies ALLERGIES Allergen Reactions Boncarbo Other: See Comments sneezing,runny nose Winn Cough also [place] with same reaction Mold [...] 05/30/2024 Time: 6:36 PM documented in this encounterOhiohealth Berger Hospital04-08-2025 Telephone encounter Note * Telephone Encounter - Dipak Aguilar DO - 05/29/2024 4:53 PM EDT Will forward to [facility] to review with /patient at office visit tomorrow Dipak Aguilar DO [facility]04-08-2025 Miscellaneous Notes* Telephone Encounter - Dipak Aguilar DO - 05/29/2024 4:53 PM EDT Will forward to [facility] to review with /patient at office [...] from his time acute rehab facility in [place] for hydralazine 25 mg QID as needed for systolic BP >150. states that she dis not give hydralazine today. Please advise if patient needs to keep taking lasix and about hydralazine prescription. Medication is not listed on patient's medications. Please review and advise, Maryan Ron RN documented in this encounterOhiohealth Berger Hospital04-03-2025 Telephone encounter Note * Telephone Encounter - [...] from his time acute rehab facility in [place] for hydralazine 25 mg QID as needed for systolic BP >150. states that she dis not give hydralazine today. Please advise if patient needs to keep taking lasix and about hydralazine prescription. Medication is not listed on patient's medications. Please review and advise, Maryan Ron RN [facility]04-01-2025 Telephone encounter Note* Telephone Encounter - Carrie Del Angel MA - 05/22/2024 4:33 PM EDT Martina Del Angel MA [facility]04-01-2025 Miscellaneous Notes* Telephone Encounter - Carrie Del Angel MA - 05/22/2024 4:33 PM EDT Martina Del Angel MA * Telephone Encounter - Elisa Garcia APRN.CNP - 05/22/2024 2:55 PM EDT Thank you for the update, agree with below. Elisa Garcia APRN.ESTIVEN * Telephone Encounter - Mira Larkin RN - 05/22/2024 2:24 PM EDT See below note as well from correction. Martina physical therapist from [facility] calling today toupdate PT plan of [...] Hydralazine on hand prescribed by hospital in [place] when he was admitted. Pt is to [...] - 05/21/2024 2:28 PM EDT Moira with [facility] calling with Nursing plan of care. HH Nursing will see patient 2 times per week for 1 week , then one time per week for 2 weeks for COPD education, edema monitoring and A-Fib management. No call back needed if provider is agreeable to plan. Gabrielle Friedman, RN documented in this encounterOhiohealth Berger Hospital04-01-2025 Telephone encounter Note * Telephone Encounter - Elisa Garcia APRN.CNP - 05/22/2024 2:55 PM EDT Thank you for the update, agree with below. Elisa Garcia APRN.AUDIO VISUAL EQUIPMENT RENTAL CLERK [facility]04-01-2025 Telephone encounter Note* Telephone Encounter - Mira Larkin RN - 05/22/2024 2:24 PM EDT See below note as well from correction. Martina physical therapist from [facility] calling today toupdate PT plan of [...] Hydralazine on hand prescribed by hospital in [place] when he was admitted. Pt is to [...] leg swelling are doing. She verbalizes understanding. [facility]03-31-2025 Telephone encounter Note* Telephone Encounter - Gabrielle Friedman RN - 05/21/2024 2:28 PM EDT Moira with [facility] calling with Nursing plan of care. HH Nursing will see patient 2 times per week for 1 week , then one time per week for 2 weeks for COPD education, edema monitoring and A-Fib management. No call back needed if provider is agreeable to plan. Gabrielle Friedman RN [facility]03-27-2025 Telephone encounter Note* Telephone Encounter - Kylee Fraser RN - 05/17/2024 3:11 PM EDT [facility] called and asked to have last OV noted faxed over. Faxed to fax # [phone]. [facility]03-27-2025 Miscellaneous Notes* Telephone Encounter - Kylee Fraser RN - 05/17/2024 3:11 PM EDT [facility] called and asked to have last OV noted faxed over. Faxed to fax # [phone]. documented in this encounterOhiohealth Berger Hospital03-27-2025 Telephone encounter Note * Telephone Encounter - Monica Vernon LPN - 05/17/2024 10:14 AM EDT Spoke with patients daughter gave information provided . She voices understanding. She wishes to berry picker machine operator order for the stair lift . Took to old med recs for berry picker machine operator. [facility]03-27-2025 Miscellaneous Notes* Telephone Encounter - Monica Vernon LPN - 05/17/2024 10:14 AM EDT Spoke with patients daughter gave information provided . She voices understanding. She wishes to berry picker machine operator order for the stair lift . Took to old med recs for berry picker machine operator. * Telephone Encounter - Radha Berman APRN.ESTIVEN [...] 40 minutes. 05/30/24. Thank you, Radha Berman APRN.AUDIO VISUAL EQUIPMENT RENTAL CLERK documented in this encounterOhiohealth Berger Hospital03-27-2025 NoteHNO ID: [id number] Author: ANANYA SPARKS RDMS Service: ? Author Type: [place] Type: Progress Notes Filed: 05/18/2024 08:17 Note [...] PATIENT PRESENTS WITH AN IMPLANTABLE OR ATTACHED CARBON PAPER INTERLEAFER: No RADIOLOGY DEPARTMENT: Ultrasound PERIPHERAL IV DATA: Not applicable SIGNED BY: Ananya Sparks RDMS RVAnne Marie May 18, 2024 8:17 [facility]03-27-2025 Telephone encounter Note* Telephone Encounter - Radha Berman APRN.AUDIO VISUAL EQUIPMENT RENTAL CLERK - 05/17/2024 8:08 AM EDT Please call [...] 40 minutes. 05/30/24. Thank you, Radha Berman APRN.AUDIO VISUAL EQUIPMENT RENTAL CLERK [facility]03-26-2025 History of Present illness Narrative* Radha Berman APRN.AUDIO VISUAL EQUIPMENT RENTAL CLERK - 05/16/2024 1:00 PM EDT Chief Complaint Patient presents with: needs referral for pt and ot and uology referral HPI Taz Johnson is a 89 year old male who presents here today for Above Complaints. Taz is an established patient of Dr. Jeff DO. Pt was admitted to [facility] in [place] on 04/13 and 04/15. 04/13-- dx with [...] facility on 05/11 and drove back to [place] with and daughter. Hx of CVA in December. Never followed up with neurology d/t going to [place] for the winter months just after this. [...] Family reports legs elevated entire drive from [place] Denies any SOB. Pt is on eliquis since stroke. Needs assistance at home. Currently lives at home back in [place] with . Daughter lives nearby to help. Does not want to move into assistive living or assisted. Daughter agrees if they can get PT, OT, home health aide, and alf to come to home, he should be [...] on any diuretic. Traveled by car from [place] to [place] yesterday. 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 Followed by [facility]. Previous Surgical History PAST SURGICAL [...] 2012 L Rotator cuff repair - bilateral [facility] PAST SURGICAL HISTORY OF plastic surgery [...] Family History Patient Allergies ALLERGIES Allergen Reactions Boncarbo Other: See Comments sneezing,runny nose Winn Cough also [place] with same reaction Mold [...] Completed Pneumococcal Vaccine: 50+ Completed Data reviewed [facility] admissions [facility] Discharge Summary -- scanned into chart. ASSESSMENT/PLAN: 1. Hospital discharge follow-up - ICD9: V67.59, ICD10: Z09 (primary diagnosis) Lab work as below. US DVT and start short burst of lasix, see below plan. Pt needs more assistance in home, see below plan. - [facility] - PATIENT LIFT, ELECTRIC - FUROSEMIDE 20 MG TABLET - COMPREHENSIVE METABOLIC PANEL - COMPLETE BLOOD COUNT AND DIFFERENTIAL - HEMOGLOBIN A1C - LIPID PANEL, FASTING - THYROID STIMULATING HORMONE - CONSULT TO NEUROLOGY - NT PRO BNP - US DVT LOWER BILATERAL - PATIENT LIFT, ELECTRIC 2. Asthma-COPD overlap syndrome (HCC) - ICD9: 493.20, ICD10: J44.89 Improvement[address] - [facility] - PATIENT LIFT, ELECTRIC - PATIENT LIFT, ELECTRIC 3. Chronic respiratory failure with hypoxia (HCC) - ICD9: 518.83, 799.02, ICD10: J96.11 Improving since discharge. - [facility] - PATIENT LIFT, ELECTRIC - PATIENT LIFT, ELECTRIC 4. Decreased activities of daily living (ADL) - ICD9: V49.89, ICD10: Z78.9 Needs assistance at home with bathing, medication management, PT, and OT. Ordered alf, PT, OT, and home health aide to [facility]. Pt will reach out by Tuesday if they do not hear anything from [facility]. - [facility] - PATIENT LIFT, ELECTRIC - PATIENT LIFT, ELECTRIC 5. Bilateral leg edema - ICD9: 782.3, ICD10: R60.0 US DVT d/t recent long car travel from [place]. L much more swollen than R. Lasix rx x 3 days and then let us know via mychart if swelling returns within a week. RTO in 2 weeks with Elisa to reassess swelling and lab work. May need to consider daily diuretic. - [facility] - PATIENT LIFT, ELECTRIC [...] Needs assistance at home. Ordered PT, OT, alf, and home health aide. Mechanical lift chair up stairs needed x2 to help independence d/t still living at home with . Long discussion about considering assisted living or assisted if unable to manage with all of these assisted resources. Daughter agrees but does not think this is needed at the moment. - PATIENT LIFT, ELECTRIC 9. Unsteady gait - ICD9: 781.2, ICD10: R26.81 Needs assistance at home. Ordered PT, OT, alf, and home health aide. Mechanical lift chair up stairs needed x2 to help independence d/t still living at home with . Long discussion about considering assisted living or assisted if unable to manage with all of [...] coordinating care and coordinating care. Radha Berman APRN.ESTIVEN [address] [place] [address] documented in this encounterOhiohealth Berger Hospital03-26-2025 NoteHNO ID: [id number] Author: RADHA BERMAN APRN.ESTIVEN Service: ? Author Type: Nurse Practitioner Type: Progress Notes Filed: 05/16/2024 18:48 Note Text: Chief Complaint Patient presents with: needs referral for pt and ot and uology referral HPI Taz Johnson is a 89 year old male who presents here today for Above Complaints. Taz is an established patient of Dr. Jeff DO. Pt was admitted to [facility] in [place] on 04/13 and 04/15. 04/13-- dx with [...] facility on 05/11 and drove back to [place] with and daughter. Hx of CVA in December. Never followed up with neurology d/t going to [place] for the winter months just after this. [...] Family reports legs elevated entire drive from [place] Denies any SOB. Pt is on eliquis since stroke. Needs assistance at home. Currently lives at home back in [place] with . Daughter lives nearby to help. Does not want to move into assistive living or assisted. Daughter agrees if they can get PT, OT, home health aide, and alf to come to home, he should be [...] on any diuretic. Traveled by car from [place] to [place] yesterday. 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 Followed by [facility]. Previous Surgical History PAST SURGICAL [...] ACUTE 2004 B, (more content not included)... [facility]12-17-2024 Telephone encounter Note* Telephone Encounter - Heather Bennett MA - 02/07/2024 10:50 AM EST Patient phones requesting refills as follows: Requested Prescriptions Pending Prescriptions Disp Refills ELIQUIS 5 mg tab(s) [Pharmacy Med Name: ELIQUIS TAB 5MG] 180 tablet 0 Sig: TAKE 1 TABLET TWICE A DAY Please review and advise. Heather Bennett MA [facility]12-17-2024 Miscellaneous Notes* Telephone Encounter - Heather Bennett MA - 02/07/2024 10:50 AM EST Patient phones requesting refills as follows: Requested Prescriptions Pending Prescriptions Disp Refills ELIQUIS 5 mg tab(s) [Pharmacy Med Name: ELIQUIS TAB 5MG] 180 tablet 0 Sig: TAKE 1 TABLET TWICE A DAY Please review and advise. Heather Bennett MA documented in this encounterOhiohealth Berger Hospital12-10-2024 Telephone encounter Note * Telephone Encounter - Evelio Jack RN - 01/31/2024 1:16 PM EST Patient called and given the below results. Evelio Jack RN [facility]12-10-2024 Miscellaneous Notes* Telephone Encounter - Evelio Jack [...] Please inform patient mar documented in this encounterOhiohealth Berger Hospital12-10-2024 Telephone encounter Note * Telephone Encounter - Evelio Jack RN - 01/31/2024 1:10 PM EST ----- Message from Denae Villareal RN sent at 01/31/2024 12:47 PM EST ----- ----- Message ----- From: Analisa Nicole MD Sent: 01/31/2024 11:59 AM EST To: Denae Poole RN Normal stress Please inform patient mar [facility]11-19-2024 Telephone encounter Note* Telephone Encounter - Laura Bejarano LPN - 01/10/2024 4:32 PM EST Pt. informed. [facility]11-19-2024 Miscellaneous Notes* Telephone Encounter - Laura Johns [...] into pharmacy in its place. Pt is nitin [place] wanting this called to [facility] in [facility] on [address] . documented in this encounterOhiohealth Berger Hospital11-19-2024 Telephone encounter Note * Telephone Encounter - [...] at bedtime. Authorizing Provider: DIPAK AGUILAR DO [facility]11-18-2024 Telephone encounter Note* Telephone Encounter - Monica Vernon LPN - 01/09/2024 1:22 PM EST Pt calls states has been trying to take the atorvastatin but keeps getting terrible diarrhea. Asking if something different could be called into pharmacy in its place. Pt is nitin [place] wanting this called to [facility] in [facility] on [address] . [facility]11-13-2024 Telephone encounter Note* Telephone Encounter - Jacob Escobar - 01/04/2024 2:52 PM EST Clearance scanned in from [facility] placed in Dr. Mar meade to be reviewed. Jacob Escobar January 04, 2024 2:53 PM [facility]11-13-2024 Miscellaneous Notes* Telephone Encounter - Jacob Escobar - 01/04/2024 2:52 PM EST Clearance scanned in from [facility] placed in Dr. Sleik box to be reviewed. Jacob Escobar January 04, 2024 2:53 PM documented in this encounterOhiohealth Berger Hospital10-22-2024 Telephone encounter Note * Telephone Encounter - Elisa Garcia APRN.CNP - 12/13/2023 1:33 PM EDT Noted, thank you. Elisa Garcia APRN.CNP [facility]10-22-2024 Miscellaneous Notes* Telephone Encounter - Elisa Garcia APRN.CNP - 12/13/2023 1:33 PM EDT Noted, thank you. Elisa Garcia APRN.CNP * Telephone Encounter - Genia Varner MA - 12/13/2023 8:52 AM EDT Pt notified. He received an email from the [facility] but states he leaves tomorrow for [place] for 6 months and will call to [...] good. Elisa Garcia APRN.CNP documented in this encounterOhiohealth Berger Hospital10-22-2024 Telephone encounter Note * Telephone Encounter - Genia Varner MA - 12/13/2023 8:52 AM EDT Pt notified. He received an email from the lung nodule clinic but states he leaves tomorrow for [place] for 6 months and will call to set up appt when he returns. Genia Varner MA [facility]10-22-2024 Telephone encounter Note* Telephone Encounter - Elisa [...] everything else looks good. Elisa Garcia APRN.ESTIVEN [facility]10-21-2024 History of Present illness Narrative* Evelio [...] Evelio Jack RN Reversal agent used:None LOT [id number] EXP 06/16 IV SITE: IV palced by nuclear tecnologist POST EXAM PIV STATUS: Discontinued by Digital Technician PATIENT DISCHARGED TO: Nuclear Medicine Department for post stress imaging A Diagnostic radioactive procedure has taken place, with no further precautions necessary other than routine body substance precautions. More information regarding radiation safety can be found usingthis link: [email or web address] 20Diagnostic%20Nuclear%20Medicine%20Procedures.pdf SIGNATURE: Evelio Jack RN PATIENT NAME:Taz Johnson DATE: 12/12/23 TIME: 3:56 PM documented in this encounterOhiohealth Berger Hospital10-21-2024 History of Present illness Narrative* Nessa Ingram [...] PATIENT PRESENTS WITH AN IMPLANTABLE OR ATTACHED CARBON PAPER INTERLEAFER: n/a CREATININE: Creatinine Date Value Ref Range [...] Discontinued PROCEDURE TYPE: NM Stress: 8.7 mCi Ib68w-Trzkbxa was administered IV for Rest Imaging at 10:03 by Nessa Ingram. 28.4 mCi Sl96c-Aaiaeso was administered IV for Stress Imaging at 11:37 by Nessa Ingram. PATIENT DISCHARGED TO: Ambulatory patient, left NE department area.. A Diagnostic radioactive procedure has taken place, with no further precautions necessary other than routine body substance precautions. More information regarding radiation safety can be found usingthis link: [email or web address] 20Diagnostic%20Nuclear%20Medicine%20Procedures.pdf SIGNATURE: DALTON Cardona) PATIENT NAME: Taz Johnson DATE: December 12, 2023 TIME: 12:35 AM PAGER/CONTACT #: documented in this encounterOhiohealth Berger Hospital10-21-2024 Telephone encounter Note * Telephone Encounter - Ananya So LPN - 12/12/2023 8:12 AM EDT Patient has a stress test this morning at 10am. He mistakenly took his Atorvastatin and was not sure if he should reschedule. He is leaving out of state for 6 months on Tuesday as well. Please callpatient back at [phone]. Ananya So LPN [facility]10-21-2024 Miscellaneous Notes* Telephone Encounter - Ananya So LPN - 12/12/2023 8:12 AM EDT Patient has a stress test this morning at 10am. He mistakenly took his Atorvastatin and was not sure if he should reschedule. He is leaving out of state for 6 months on Tuesday as well. Please callpatient back at [phone]. Ananya So LPN documented in this encounterOhiohealth Berger Hospital10-15-2024 Telephone encounter Note * Telephone Encounter - Nguyen Arreaga MA - 12/06/2023 10:38 AM EDT Patient active MyChart. Patient notified via Limeade message. Nguyen Arreaga MA [facility]10-15-2024 Miscellaneous Notes* Telephone Encounter - Nguyen Arreaga MA - 12/06/2023 10:38 AM EDT Patient active MyChart. Patient notified via Limeade message. Nguyen Arreaga MA * Telephone Encounter - Dipak Aguilar DO - 12/06/2023 9:42 AM EDT Please inform patient that his iron levels are normal Dipak Aguilar DO documented in this encounterOhiohealth Berger Hospital10-15-2024 Telephone encounter Note * Telephone Encounter - Dipak Aguilar DO - 12/06/2023 9:42 AM EDT Please inform patient that his iron levels are normal Dipak Aguilar DO [facility]10-14-2024 History of Present illness Narrative* Lavern Blakely RPFT - 12/05/2023 1:31 PM EDT PULM FUNCTION: Provider: Elisa Garcia APRN.AUDIO VISUAL EQUIPMENT RENTAL CLERK Assisting Tech: Lavern Blakely RPFT Spirometry w/BD: 1 LV - Box: 1 documented in this encounterOhiohealth Berger Hospital10-14-2024 History of Present illness Narrative* Keisha Eli RT(R) - 12/05/2023 11:40 AM EDT Radiology Service [...] PATIENT PRESENTS WITH AN IMPLANTABLE OR ATTACHED CARBON PAPER INTERLEAFER: No RADIOLOGY DEPARTMENT: CT; Exam(s) Completed: Chest PERIPHERAL IV DATA: Not applicable SIGNED BY: RT Radha(R) December 05, 2023 2:42 PM documented in this encounterOhiohealth Berger Hospital10-08-2024 History of Present illness Narrative* Elisa Garcia APRN.CNP - 11/29/2023 7:31 AM EDT Chief Complaint [...] his doctor during the winter months in [place]. States they always say everything is fine. [...] GERD (gastroesophageal reflux disease) Melanoma (HCC) [address] [facility] Persistent atrial fibrillation (HCC) 10/11/2019 Admitted 09/05/2019 [facility]. Followed by [facility]. Previous Surgical History PAST SURGICAL [...] 2011 L Rotator cuff repair - bilateral [facility] PAST SURGICAL HISTORY OF plastic surgery [...] Family History Patient Allergies ALLERGIES Allergen Reactions Boncarbo Other: See Comments sneezing,runny nose Winn Cough also cy[place] with same reaction Mold [...] Personalized prevention plan provided documented in this encounterOhiohealth Berger Hospital10-02-2024 History of Present illness Narrative* Jeffrey Hdz [...] GERD (gastroesophageal reflux disease) Melanoma (HCC) [address] [facility] Persistent atrial fibrillation (HCC) 10/11/2019 Admitted 09/05/2019 [facility]. Followed by [facility]. PAST SURGICAL HISTORY Procedure Laterality [...] 2012 L Rotator cuff repair - bilateral [facility] PAST SURGICAL HISTORY OF plastic surgery [...] Comment: occassional-once weekly Drug use: No ALLERGIES: Boncarbo, Winn, and Mold MEDICATIONS: metoprolol tartrate, short acting, [...] which included preparing to see the patient, uvzh-ec-jitm patient care, completing clinical documentation, obtaining and/or [...] 2023 TIME: 8:05 AM documented in this encounterOhiohealth Berger Hospital10-02-2024 History of Present illness Narrative* Debra Kraus [...] PATIENT PRESENTS WITH AN IMPLANTABLE OR ATTACHED CARBON PAPER INTERLEAFER: No RADIOLOGY DEPARTMENT: General X-ray: Exam(s) Completed: [...] PATIENT PRESENTS WITH AN IMPLANTABLE OR ATTACHED CARBON PAPER INTERLEAFER: No RADIOLOGY DEPARTMENT: General X-ray: Exam(s) Completed: Spine X-Ray(s): Lumbar AP / LAT PERIPHERAL IV DATA: Not applicable SIGNED BY: Anat Alarcon November 23, 2023 8:59 AM documented in this encounterOhiohealth Berger Hospital10-02-2024 NoteHNO ID: [id number] Author: DEBRA KRAUS Tech Service: ? Author Type: Scoop Machine Operator Type: Progress Notes Filed: 11/23/2023 07:47 Note [...] PATIENT PRESENTS WITH AN IMPLANTABLE OR ATTACHED CARBON PAPER INTERLEAFER: No RADIOLOGY DEPARTMENT: General X-ray: Exam(s) Completed: Pelvis X-Ray: Pelvis with Hip Bilateral and Wt. Bearing Lower Extremity X-Ray(s): Knee, AP / Lat / Tunne / Merchant Right and Wt. Bearing PERIPHERAL IV DATA: Not applicable SIGNED BY: Anat Alarcon November 23, 2023 7:46 [id number] NoteHNO ID: [id number] Author: DEBRA KRAUS Tech Service: ? Author Type: Scoop Machine Operator Type: Progress Notes Filed: 11/23/2023 08:59 Note [...] PATIENT PRESENTS WITH AN IMPLANTABLE OR ATTACHED CARBON PAPER INTERLEAFER: No RADIOLOGY DEPARTMENT: General X-ray: Exam(s) Completed: Spine X-Ray(s): Lumbar AP / LAT PERIPHERAL IV DATA: Not applicable SIGNED BY: Anat Alarcon November 23, 2023 8:59 [facility] [id number] Telephone encounter Note* Telephone Encounter - Denae Poole RN - 11/14/2023 9:08 AM EDT Patient's request for medication is as follows: Requested Prescriptions Pending Prescriptions Disp Refills metoprolol tartrate, short acting, (LOPRESSOR) 50 mg tablet 180 tablet 3 Sig: Take 1 tablet by mouth two times a day. Last visit 09/12/23. Next visit 07/02/24. Prescription(s) as above. Please process accordingly. Denae Poole RN [facility]09-23-2024 Miscellaneous Notes* Telephone Encounter - Denae Poole [...] accordingly. Denae Poole RN documented in this encounterOhiohealth Berger Hospital09-11-2024 Telephone encounter Note * Telephone Encounter - Dipak Aguilar DO - 11/02/2023 11:35 AM EDT Labs ordered Dipak Aguilar DO [facility]09-11-2024 Miscellaneous Notes* Telephone Encounter - Dipak Aguilar DO - 11/02/2023 11:35 AM EDT Labs ordered Dipak Aguilar DO documented in this encounterOhiohealth Berger Hospital09-10-2024 Telephone encounter Note * Telephone Encounter - Mona Mayen MA - 11/01/2023 1:00 PM EDT Patient phones requesting refills as follows: Requested Prescriptions Pending Prescriptions Disp Refills apixaban (ELIQUIS) 5 mg tab(s) 180 tablet 3 Sig: Take 1 tablet by mouth two times a day. Mayur 08/31/2022 Nov Not scheduled Labs 10/2022 Please review and advise. Mona Mayen MA [facility]09-10-2024 Miscellaneous Notes* Telephone Encounter - Mona Mayen MA - 11/01/2023 1:00 PM EDT Patient phones requesting refills as follows: Requested Prescriptions Pending Prescriptions Disp Refills apixaban (ELIQUIS) 5 mg tab(s) 180 tablet 3 Sig: Take 1 tablet by mouth two times a day. Mayur 08/31/2022 Nov Not scheduled Labs 10/2022 Please review and advise. Mona Mayen MA documented in this encounterOhiohealth Berger Hospital08-16-2024 Telephone encounter Note * Telephone Encounter - Carrie Del Angel MA - 10/07/2023 9:18 AM EDT Pt informed. Taken to med rec. Carrie Del Angel MA [facility]08-16-2024 Miscellaneous Notes* Telephone Encounter - Carrie Del [...] up. Tiffany Beauchamp LPN documented in this encounterOhiohealth Berger Hospital08-15-2024 Telephone encounter Note * Telephone Encounter - Elisa Garcia APRN.CNP - 10/06/2023 6:13 PM EDT Letter is in the outbox in our office. Elisa Garcia APRN.AUDIO VISUAL EQUIPMENT RENTAL CLERK [facility] Work Phone: [phone]) 278-398508-14-2024 Telephone encounter Note* Telephone Encounter - Evelio Jack RN - 10/05/2023 1:02 PM EDT Patient called and notified. Evelio Jack RN [facility]08-14-2024 Miscellaneous Notes* Telephone Encounter - Evelio Jack RN - 10/05/2023 1:02 PM EDT Patient called and notified. Evelio Jack RN * Telephone Encounter - Heather Bennett MA - 10/04/2023 4:40 PM EDT [employer] message sent to inform. Heather Bennett MA [...] Please inform patient mar documented in this encounterOhiohealth Berger Hospital08-14-2024 Telephone encounter Note * Telephone Encounter - Tiffany Beauchamp LPN - 10/05/2023 10:19 AM EDT Pt called asking on status of handicap placard. Is hoping to get it by this weekend. Please advise \. Tiffany Beauchamp LPN [facility]08-13-2024 Telephone encounter Note* Telephone Encounter - Heather Bennett MA - 10/04/2023 4:40 PM EDT GotGamehart message sent to inform. Heather Bennett MA [facility]08-13-2024 Telephone encounter Note* Telephone Encounter - Tiffany Beauchamp LPN - 10/04/2023 8:54 AM EDT Pt states he was hospitalized last week for TIA, expressive aphasia & afib. He reports he gets out of breath quickly. Pt is asking if he is eligible for a handicap placard? If so, call when ready& pt will pick it up. Tiffany Beauchamp LPN [facility]08-07-2024 Telephone encounter Note* Telephone Encounter - Evelio Jack RN - 09/28/2023 3:01 PM EDT Left message asking patient to call back for results. Evelio Jack RN [facility]08-07-2024 Telephone encounter Note* Telephone Encounter - Evelio Jack RN - 09/28/2023 3:00 PM EDT ----- Message from Analisa Nicole MD sent at 09/28/2023 2:17 PM EDT ----- ECHO IS NORMAL Please inform patient mar [facility]07-22-2024 History of Present illness Narrative* Analisa Nicole MD - 09/12/2023 11:01 AM EDT Images from the original note were not included. Analisa Nicole MD Interventional Cardiology [address] [place] [address] [phone] Chief Complaint Patient presents with: New Patient [...] GERD (gastroesophageal reflux disease) Melanoma (HCC) [address] Persistent atrial fibrillation (HCC) 10/11/2019 Admitted 09/05/2019 [facility]. Followed by [facility]. PAST SURGICAL HISTORY Procedure Laterality [...] 2011 L Rotator cuff repair - bilateral [facility] PAST SURGICAL HISTORY OF plastic surgery [...] weekly Drug use: No ALLERGIES Allergen Reactions Boncarbo Other: See Comments sneezing,runny nose Winn Cough also [place] with same reaction Mold [...] CAPSULES BY MOUTH ONE HOUR BEFORE APPOINTMENT TRELEMATT ELLIPTA 200-62.5-25 mcg dsdv Inhale as [...] to correct any errors. documented in this encounterOhiohealth Berger Hospital05-03-2024 Instructions* Patient Instructions* Aj Issa MD - [...] treat erectile dysfunction? The type of medical policy specialist who treats ED will depend on the [...] or penile injection therapy. documented in this encounterOhiohealth Berger Hospital05-03-2024 NoteHNO ID: [id number] Author: AJ ISSA MD Service: ? Author Type: Physician Type: Procedures Filed: 06/27/2023 08:06 Note Text: CYSTOSCOPY PROCEDURE NOTE: 39689-fpezp/fulg 45052-ybflc,bx 46631--otdyu/complex 19077--bttij 24625--lagrbsum cath 23061-ltstr/dilate BLADDER IRRIGATION, SIMPLE, LAVAG [[id number] Taz Johnson is a 88 year old male who presents for cystoscopy. 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 Pt ID verified with patient: yes Procedure verified with patient: yes Procedure confirmed with physician and senior administrator support: yes Special equipment-cystoscope Dx: UNIVERSAL PROTOCOL [...] plans Aj Issa MD documented in this encounterOhiohealth Berger Hospital05-03-2024 NoteHNO ID: [id number] Author: RINA SHEETS MA Service: ? Author Type: Neuropsychologist Type: Progress Notes Filed: 06/27/2023 08:06 Note Text: Supervisor Histology present:Rina Sheets [facility]05-03-2024 Note HNO ID: [id number] Author: AJ ISSA MD Service: ? Author [...] hung up He is going back to [place] in a few weeks and he knows to reconnect with urology there if he has problems Could always consult with Dr. Summers or Dr. Yamile Trujillo at [facility] who are stricture specialists and [...] for cystoscopy and urethral dilation and probably Benavides placement and he will hold his Levaquin [...] he was sent home same day with Benavides catheter in place Patient voiding and stream [...] shortness of breath We will schedule at [facility] Bladder scan/postvoid residual-80 cc approximate 06/29/2022 CC: marcy Saw me last noted below and had laser TURP Did well afterwards but then having more trouble so underwent TURP in December 2021 in [place] and did well but over the last [...] daytime frequency but drink (more content not included)...[facility]05-03-2024 History of Present illness Narrative* Rina Sheets MA - 06/24/2023 8:20 AM EDT Supervisor Histology present:Rina Sheets MA * Aj Issa MD [...] hung up He is going back to [place] in a few weeks and he knows to reconnect with urology there if he has problems Could always consult with Dr. Summers or Dr. Yamile Trujillo at [facility] who are stricture specialists andhe [...] also Discussed options and will take to [facility] tomorrow for cystoscopy and urethral dilation and probably Benavides placement and he will hold his Levaquin [...] trialAs he wassent home same day with Benavides catheter in place Patient voiding and stream [...] shortness of breath We will schedule at [facility] Bladder scan/postvoid residual-80 cc approximate 06/29/2022 CC: marcy Saw me last noted below and had laser TURP Did well afterwards but then having more trouble so underwent TURP in December 2021 in [place] and did well but over the last [...] are not tender. Urology Procedures: June 24, 20234803-qowgvwdlrh-ujqhipo without stricture and get through prostate apex and mid prostate seenarrow area with ledge at 6:00 once again and distal snug so I cannot get the scope through it easily but I can see through in the bladder neck appears open 12/16/20226291-Rfwnwiqqhz-newyjdp without stricture and I get through prostatic [...] oclock A guide wire was advanced-Dilation using cwlpak32- sounds up to 26 F October 19, 20225777-azqsopubwp-ebtezpd open and apex and mid prostate open but then small hole near 12 o'clock position towards the bladder neck and at 6 o'clock position couple of small holes I think I can see through to the bladder September 14, 20222435-pawprztzos-yjbb recurrence of contracture just distal to the bladder neck and the prostate and with a little force passed the scope through it and dilated this very short area of contracture and minimal residual urine August 05, 2022-cystoscopy, dilation, transurethral resection bladder yrdx-Wecrgdaok-tcpegyyetqn inflamed benign urothelial mucosa with dystrophic microcalcifications July 20, 20228782-Ebckypaqas-sj urethral stricture but just inside verumontanum I [...] (no units) Date Value 10/21/2016 neg Specific Marshall, Ur (no units) Date Value 10/21/2016 1.025 [...] GERD (gastroesophageal reflux disease) Melanoma (HCC) [address] Persistent atrial fibrillation (HCC) 10/11/2019 Admitted 09/05/2019 [facility]. Followed by [facility]. FAMILY HISTORY Problem Relation Age [...] that may be inappropriate. documented in this encounterOhiohealth Berger Hospital03-27-2024 Miscellaneous Notes* Telephone Encounter - Mariana Clayton [...] Visit date not found Patient Phone numbers: [phone] (home) Request is for script(s) to be escript to pharmacy. Mariana Clayton MA documented in this encounterOhiohealth Berger Hospital03-11-2024 History of Present illness Narrative* Mini Saldaña [...] ED USE: OTHER FINDINGS/SUMMARY: Pt attributed to [facility]. No action needed Patient Attributed To: SUEE Payer: Kathyaflorencia MADISYN Action Taken: No action needed Contact made with patient: No, Chart review only. Signature: Mini Saldaña RN documented in this encounterOhiohealth Berger Hospital09-29-2023 Miscellaneous Notes* Addendum Note - Radha Berman [...] (PRILOSEC) 20 mg capsule Contact patient at [phone] when this has been completed. Kate Wetzel [...] panel looks good. Thank you, Radha Berman APRN.CNP documented in this encounterOhiohealth Berger Hospital09-11-2023 Miscellaneous Notes* Telephone Encounter - Deisy Felipe [...] MAYUR 08/31/2022 NOV 09/01/2023 documented in this encounterOhiohealth Berger Hospital09-05-2023 Nurse Note* Georgie Hansen RN - 10/26/2022 11:33 AM EDT Patient in for CIC teaching. Given male CIC patient education sheet. Instructed on proper techniqueand s/s of infection, cath after trying to void, how to track. Verbalized understanding to all instruction. Patient able to cath self with nurse instruction/assistance. Used 16 kiswahili coude catheter.Informed patient that he is to [facility]IC once daily. Samples given. Georgie Hansen RN documented in this encounterOhiohealth Berger Hospital08-31-2023 Miscellaneous Notes* Telephone Encounter - Jeffrey Rdz [...] do once each day documented in this encounterOhiohealth Berger Hospital08-29-2023 Instructions* Patient Instructions* Aj Issa MD - 10/19/2022 10:47 AM EDT INSTRUCTIONS FROM DR. ISSA: Plan on cystoscopy with urethral dilation tomorrow at [facility] documented in this encounterOhiohealth Berger Hospital08-29-2023 Procedure note* Aj Issa MD - 10/19/2022 10:38 AM EDTProcedure(s): CYSTOSCOPY Pre-Procedure Diagnose(s): Slow urinary stream Post-Procedure Diagnose(s): Slow urinary stream CYSTOSCOPY PROCEDURE NOTE: 91583-bhjzf/fulg 42928-dpomv,bx 78224--rpoqg/complex 05401--qjmuy 00354--hhltradh cath 39836-ilend/dilate BLADDER IRRIGATION, SIMPLE, LAVAG [[id number] Taz Johnson is a 87 year old male who presents for cystoscopy. Pt ID verified with patient: yes Procedure verified with patient: yes Procedure confirmed with physician and senior administrator support: yes Special equipment-cystoscope UNIVERSAL PROTOCOL / [...] plans Aj Issa MD documented in this encounterOhiohealth Berger Hospital08-29-2023 History of Present illness Narrative* Aj Issa [...] for cystoscopy and urethral dilation and probably Benavides placement and he will hold his Levaquin [...] trialAs he wassent home same day with Benavides catheter in place Patient voiding and stream [...] shortness of breath We will schedule at [facility] Bladder scan/postvoid residual-80 cc approximate 06/29/2022 CC: marcy Saw me last noted below and had laser TURP Did well afterwards but then having more trouble so underwent TURP in December 2021 in [place] and did well but over the last [...] are not tender. Urology Procedures: October 19, [id number]-ymbvxgieez-eewjonf open and apex and mid prostate open but then small hole near 12 o'clock position towards the bladder neck and at 6 o'clock position couple of small holes I think I can see through to the bladder September 14, 20220711-xowyjewdui-oelb recurrence of contracture just distal to the bladder neck and the prostate and with a little force passed the scope through it and dilated this very short area of contracture and minimal residual urine August 05, 2022-cystoscopy, dilation, transurethral resection bladder dvzf-Qqbrnrjiw-dkjrgagemot inflamed benign urothelial mucosa with dystrophic microcalcifications July 20, [id number]-Bvqmtmdzkf-qr urethral stricture but just inside verumontanum I [...] (no units) Date Value 10/21/2016 neg Specific Marshall, Ur (no units) Date Value 10/21/2016 1.025 [...] GERD (gastroesophageal reflux disease) Melanoma (HCC) [address] Con[employer] Persistent atrial fibrillation (HCC) 10/11/2019 Admitted 09/05/2019 [facility]. Followed by [facility]. FAMILY HISTORY Problem Relation Age [...] that may be inappropriate. documented in this encounterOhiohealth Berger Hospital08-25-2023 Miscellaneous Notes* Telephone Encounter - Heather Welch LPN - 10/15/2022 8:11 AM EDT Spoke with pt and information listed below given. Pt verbalizes understanding. Heather Welch LPN * Telephone Encounter - Radha Berman APRN.CNP - 10/14/2022 2:38 PM EDT Consult placed. No specific referral, any doctor is fine. Thank you, Radha Berman APRN.ESTIVEN * Telephone Encounter - Heather Welch LPN - 10/14/2022 9:31 AM EDT Pt calling for a referral to Gastro at [facility]. Pt asking if there is a doctor there you would recommend. Dx is GERD. Please advise pt. Heather Welch LPN documented in this encounterOhiohealth Berger Hospital08-22-2023 History of Present illness Narrative* Beata Watkins APRN.CNP - 10/12/2022 11:40 AM EDT ESTABLISHED PATIENT [...] (no units) Date Value 10/21/2016 neg Specific Marshall, Ur (no units) Date Value 10/21/2016 1.025 [...] GERD (gastroesophageal reflux disease) Melanoma (HCC) [address] Conductor Persistent atrial fibrillation (HCC) 10/11/2019 Admitted 09/05/2019 [facility]. Followed by [facility]. FAMILY HISTORY Problem Relation Age [...] 2012 L Rotator cuff repair - bilateral [facility] PAST SURGICAL HISTORY OF plastic surgery [...] URINE CULTURE - prelim Bactrim Beata Watkins APRN.AUDIO VISUAL EQUIPMENT RENTAL CLERK documented in this encounterOhiohealth Berger Hospital08-10-2023 Miscellaneous Notes* Addendum Note - Mirza Carrillo [...] and asking to have request sent to [facility] to review. Pending rx needs completed. Please [...] advise Tiffany Beauchamp LPN documented in this encounterOhiohealth Berger Hospital07-11-2023 History of Present illness Narrative* Wes Mcintosh MD - 08/31/2022 8:30 AM EDT Images from the original note were not included. [facility] [place] [facility] Department of Cardiovascular Medicine OUTPATIENT VISIT DATE 08/31/22 OUTPATIENT VISIT TYPE ESTABLISHED PRIMARY CARE PHYSICIAN: Dipak Aguilar DO [address] [facility] [address] CHIEF COMPLAINT: Patient presents with: CARD Follow [...] GERD (gastroesophageal reflux disease) Melanoma (HCC) [address] Conductor Persistent atrial fibrillation (HCC) 10/11/2019 Admitted 09/05/2019 [facility]. Followed by [facility]. PAST SURGICAL HISTORY Procedure Laterality [...] 2012 L Rotator cuff repair - bilateral [facility] PAST SURGICAL HISTORY OF plastic surgery [...] No Family History ALLERGIES: ALLERGIES Allergen Reactions Boncarbo Other: See Comments sneezing,runny nose Winn Cough also [place] with same reaction Mold [...] of any further assistance. Wes Mcintosh MD, [facility] Fernandez [facility] Department of Cardiovascular Medicine Heart [facility] Vascular [place] [facility] [address] [place] [address] Medical Decision Making: Problems: Moderate: 2+ stable chronic illnesses Data: Unique test result(s) reviewed: 1 Risk: Low: Low risk from testing/treatment Moderate: Drug management Medical Decision Making Level: 4 - Moderate documented in this encounterOhiohealth Berger Hospital06-30-2023 Miscellaneous Notes* Telephone Encounter - Rina Sheets Cma - 08/20/2022 10:20 AM EDT Patient advised-urine culture was positive so I sent prescription for Bactrim to his pharmacy Patient agreed. Rina Sheets Cma * Telephone Encounter - Aj Issa MD - 08/20/2022 10:06 AM EDT Inform patient that urine culture was positive so I sent prescription for Bactrim to his pharmacy documented in this encounterOhiohealth Berger Hospital06-27-2023 Instructions* Patient Instructions* Aj Issa MD - 08/17/2022 10:33 AM EDT INSTRUCTIONS FROM DR. ISSA: Start the Detrol medication and see if it helps with leakage issues and I sent to your local pharmacy I will perform cystoscopy in the office when I see you back in about 4 weeks documented in this encounterOhiohealth Berger Hospital06-27-2023 History of Present illness Narrative* Aj Issa MD - 08/17/2022 10:19 AM EDT ESTABLISHED PATIENT OFFICE VISIT PATIENT INFO: Taz Johnson 87 year old HPI 08/17/2022 CC: tur Status post transurethral section bladder neck contracture and saw nurse for voiding trialAs he wassent home same day with Benavides catheter in place Patient voiding and stream [...] shortness of breath We will schedule at [facility] Bladder scan/postvoid residual-80 cc approximate 06/29/2022 CC: marcy Saw me last noted below and had laser TURP Did well afterwards but then having more trouble so underwent TURP in December 2021 in [place] and did well but over the last [...] August 05, 2022-cystoscopy, dilation, transurethral resection bladder btti-Hvxhurxvj-sklnoikzexr inflamed benign urothelial mucosa with dystrophic microcalcifications July 20, [id number]-Qjrvvqeaav-mn urethral stricture but just inside verumontanum I [...] (no units) Date Value 10/21/2016 neg Specific Marshall, Ur (no units) Date Value 10/21/2016 1.025 [...] GERD (gastroesophageal reflux disease) Melanoma (HCC) [address] Con[employer] Persistent atrial fibrillation (HCC) 10/11/2019 Admitted 09/05/2019 [facility]. Followed by [facility]. FAMILY HISTORY Problem Relation Age [...] that may be inappropriate. documented in this encounterOhiohealth Berger Hospital06-19-2023 Nurse Note* Kylee Chang - 08/09/2022 10:10 [...] instructions. Kylee Chang RN documented in this encounterOhiohealth Berger Hospital06-15-2023 Miscellaneous Notes* Telephone Encounter - Chante Reyes - 08/05/2022 1:04 PM EDT Patient has been moved to Tuesday08/09/2022 for voiding trial at [facility]. Chante Reyes * Telephone Encounter - Aj Issa MD - 08/05/2022 10:46 AM EDT S/p TURP P: pt has appt with nurse next --see if they want to move that to tue or if nursing can do active void trial then documented in this encounterOhiohealth Berger Hospital06-05-2023 History of Present illness Narrative* Crystal Pradhan APRN.AUDIO VISUAL EQUIPMENT RENTAL CLERK - 07/26/2022 9:25 AM EDT Chief Complaint [...] history of colon cancer Melanoma (HCC) [address] Con[address] Persistent atrial fibrillation (HCC) 10/11/2019 Admitted 09/05/2019 [facility]. Followed by [facility]. Previous Surgical History PAST SURGICAL [...] 2011 L Rotator cuff repair - bilateral [facility] PAST SURGICAL HISTORY OF plastic surgery [...] Family History Patient Allergies ALLERGIES Allergen Reactions Boncarbo Other: See Comments sneezing,runny nose Winn Cough also [place] with same reaction Mold [...] are well controlled and stable. Crystal Pradhan APRN.ESTIVEN documented in this encounterOhiohealth Berger Hospital06-01-2023 Miscellaneous Notes* Telephone Encounter - Yoko MENDES - 07/22/2022 11:37 AM EDT Pt is scheduled for C&P, urethral dilation, possible DVIU, TURP with Dr Issa at [facility] on 08/05/22 @ 8:00 (6:00 arrival). PAT and labs on 07/29/22 @ 3:00 at [place]. Pt takes ELIQUIS- needs to be off 3 days prior and at least 7 days after surgery. Medical clearanceform faxed to Dr Dipak Aguilar, f.[phone] on 07/20/22. 1 week follow up with nurse on 08/12/22 @ 1:30. 2-[address] Issa on 08/17/22 @ 11:00. Pt given date, time, prep and arrival instructions in person on 07/20/22. Written info given also. Yoko MENDES documented in this encounterOhiohealth Berger Hospital06-01-2023 Miscellaneous Notes* Telephone Encounter - Monica Vernon LPN - 07/22/2022 9:49 AM EDT T/C to pt, he is willing to come in tried but was told you are not available till way out. Explained both JAI ALAI PLAYER milan out and you are trying to [...] Aguilar. Monica Vernon LPN documented in this encounterOhiohealth Berger Hospital05-30-2023 Instructions* Patient Instructions* Aj Issa MD - 07/20/2022 10:36 AM EDT INSTRUCTIONS FROM DR. ISSA: We will schedule the cystoscopy with the dilation and possible transurethral section prostate documented in this encounterOhiohealth Berger Hospital05-30-2023 Procedure note* Aj Issa MD - 07/20/2022 10:24 AM EDTProcedure(s): CYSTOSCOPY Pre-Procedure Diagnose(s): Bladder neck contracture Post-Procedure Diagnose(s): Bladder neck contracture CYSTOSCOPY PROCEDURE NOTE: 04016-uupvr/fulg 04288-adlog,bx 44387--btxoh/complex 63881--ykvyv 09877--odvyipvk cath 28094-hjhut/dilate BLADDER IRRIGATION, SIMPLE, LAVAG [[id number] Taz Johnson is a 87 year old male who presents for cystoscopy. Pt ID verified with patient: yes Procedure verified with patient: yes Procedure confirmed with physician and senior administrator support: yes Special equipment-cystoscope UNIVERSAL PROTOCOL / [...] plans Aj Issa MD documented in this encounterOhiohealth Berger Hospital05-30-2023 History of Present illness Narrative* Aj Issa [...] shortness of breath We will schedule at [facility] Bladder scan/postvoid residual-80 cc approximate Past Urology Hx: 06/29/2022 CC: marcy Saw me last noted below and had laser TURP Did well afterwards but then having more trouble so underwent TURP in December 2021 in [place] and did well but over the last [...] are not tender. Urology Procedures: July 20, [id number]-Pekwydbkyj-ww urethral stricture but just inside verumontanum I [...] (no units) Date Value 10/21/2016 neg Specific Marshall, Ur (no units) Date Value 10/21/2016 1.025 [...] history of colon cancer Melanoma (HCC) [address] Con[address] Persistent atrial fibrillation (HCC) 10/11/2019 Admitted 09/05/2019 [facility]. Followed by [facility]. FAMILY HISTORY Problem Relation Age [...] and dysuria. Risk of anesthesia complications, stroke, MD, etc.The patient expressed an understandingwith regard to [...] neck stricture - ICD9: 596.89, ICD10: N32.0 [facility]-cystoscopy, pyelograms, urethral dilation/DVIU/possible TURP - SULFAMETHOXAZOLE 800 MG-TRIMETHOPRIM 160 MG TABLET - LIDOCAINE 2 % MUCOSAL JELLY IN APPLICATOR - CYSTO.VERONIQUE Issa Please note: This note has been produced using speech recognition software and may contain errors related to that system including grammar, punctuation, spelling, gender and words and phrases that may be inappropriate. documented in this encounterOhiohealth Berger Hospital05-11-2023 History of Present illness Narrative* MARIEL Cardona - 07/01/2022 7:20 AM EDT This note was created using NoteWriter. Subjective Taz Johnson is a 87 year [...] ER evaluation. MARIEL Cardona documented in this encounterOhiohealth Berger Hospital05-09-2023 Instructions* Patient Instructions* Aj Issa MD - [...] urination after the test. documented in this encounterOhiohealth Berger Hospital05-09-2023 History of Present illness Narrative* Aj Issa MD - 06/29/2022 3:27 PM EDT ESTABLISHED PATIENT OFFICE VISIT PATIENT INFO: Taz Johnson 87 year old HPI 06/29/2022 CC: marcy Saw me last noted below and had laser TURP Did well afterwards but then having more trouble so underwent TURP in December 2021 in [place] and did well but over the last [...] (no units) Date Value 10/21/2016 neg Specific [place], Ur (no units) Date Value 10/21/2016 1.025 [...] history of colon cancer Melanoma (HCC) [address] Persistent atrial fibrillation (HCC) 10/11/2019 Admitted 09/05/2019 [facility]. Followed by [facility]. FAMILY HISTORY Problem Relation Age [...] that may be inappropriate. documented in this [facility]11-07-2022 Miscellaneous Notes* Telephone Encounter - Deisy Felipe RN - 12/28/2021 12:04 PM EST RN from [place] called about pt getting clearance for surgery. She is requesting for EKG, MAYUR from Dr. Mcintosh, Echo and stress test results. Advised RN to call medical records to obtain these documents at [phone] documented in this [facility]10-18-2022 History of Present illness Narrative* Korin Araiza APRN.ESTIVEN - 12/08/2021 10:01 AM EDT Patient came in presenting with a sore on his middle upper chest. Patient says he has had 3 weeks. Patient says it does not seem to be getting better. Patient says he did try to open it up but nothing came out. Patient has a history of skin cancer lesions. Patient sees a heat and frost insulator for this. Didattempt to call patient's dermatology office they were not sure they can get them in. Got an appointment tomorrow with Julian Robbins. Patient was okay with this and patient will follow-up tomorrow morning with Julian Robbins. documented in this [facility]10-17-2022 Miscellaneous Notes* Telephone Encounter - Heather Welch [...] diet. Dipak Aguilar DO documented in this encounterOhiohealth Berger Hospital10-11-2022 History of Present illness Narrative* Arlin Yang LPN - 12/01/2021 2:15 PM EDT Patient presents for COVPanacela Labs booster. Denies any problems at this time. Tolerated injection well. Arlin Yang LPN documented in this encounterOhiohealth Berger Hospital09-26-2022 History of Past illness Narrative* Problem Noted Date Diagnosed Date Resolved Date Atrial fibrillation 11/16/2021 11/17/19 23 Atrial fibrillation, chronic 08/26/2020 11/12/2021 Persistent atrial fibrillation 10/11/2019 11/12/2021 Overview: Admitted 09/05/2019 [facility]. Followed by [facility]. Asthma with chronic obstruct steve pulmonary disease (COPD) 10/26/2018 09/12/2019 documented as of this encounter (statuses as of 11/19/2022) [facility]09-26-20[facility] History of Past illness Narrative* Problem Noted Date Diagnosed Date Resolved Date Atrial fibrillation 11/16/2021 11/17/19 23 Atrial fibrillation, chronic 08/26/2020 11/12/2021 Persistent atrial fibrillation 10/11/2019 11/12/2021 Overview: Admitted 09/05/2019 [facility]. Followed by [facility]. Asthma with chronic obstruct steve pulmonary disease (COPD) 10/26/2018 09/12/2019 documented as of this encounter (statuses as of 05/02/2023) [facility]09-26-20[facility] History of Past illness Narrative* Problem Noted Date Diagnosed Date Resolved Date Atrial fibrillation 11/16/2021 11/17/19 23 Atrial fibrillation, chronic 08/26/2020 11/12/2021 Persistent atrial fibrillation 10/11/2019 11/12/2021 Overview: Admitted 09/05/2019 [facility]. Followed by [facility]. Asthma with chronic obstruct steve pulmonary disease (COPD) 10/26/2018 09/12/2019 documented as of this encounter (statuses as of 05/18/2023) [facility]08-15-2022 Miscellaneous Notes* Telephone Encounter - Lidia Danielson [facility] - 10/05/2021 9:37 AM EDT Form has been scanned and faxed. Thank you * Telephone Encounter - Wes Mcintosh MD - 10/02/2021 5:28 PM EDT Done. * Telephone Encounter - Lizzie Bonds Ma - 09/30/2021 8:28 AM EDT Type of form: Joan urology specialist. (Asking about stopping Eliquis) Form received via fax When form is completed, Fax form to [phone] Form has been forwarded to Physician Desk: Dr. Dayna GALDAMEZ. Lizzie Bonds Ma documented in this encounterOhiohealth Berger Hospital06-17-2022 History of Present illness Narrative* Sara Mila Gallardo Pss - 08/07/2021 9:43 AM EDT POPULATION HEALTH NAVIGATION OUTREACH Action/FYI Patient Outreach: [facility] Support - Pt [...] 07, 2021 9:43 AM documented in this encounterOhiohealth Berger Hospital08-23-2021 History of Present illness Narrative* Sara Arshad, [...] PERIPHERAL IV DATA: Not applicable SIGNED BY: Sara Arshad, RT(R) October 13, 2020 9:48 AM documented in this encounterOhiohealth Berger Hospital07-06-2021 History of Past illness Narrative* Problem Noted Date Resolved Date Atrial fibrillation, chronic 08/26/2020 Persistent atrial fibrillation 10/11/2019 0 11/12/2021 Overview: Admitted 09/05/2019 [facility]. Followed by [facility]. Asthma with chronic obstructive pulmonary diseas e (COPD) 10/26/2018 09/12/2019 documented as of this encounter (statuses as of 12/01/2021) [facility]07-06-[facility] History of Past illness Narrative* Problem Noted Date Resolved Date Atrial fibrillation, chronic 08/26/2020 Persistent atrial fibrillation 10/11/2019 0 11/12/2021 Overview: Admitted 09/05/2019 [facility]. Followed by [facility]. Asthma with chronic obstructive pulmonary diseas e (COPD) 10/26/2018 09/12/2019 documented as of this encounter (statuses as of 12/07/2021) [facility] History of Past illness Narrative* Problem Noted Date Resolved Date Atrial fibrillation, chronic 08/26/2020 Persistent atrial fibrillation 10/11/2019 0 11/12/2021 Overview: Admitted 09/05/2019 [facility]. Followed by [facility]. Asthma with chronic obstructive pulmonary diseas e (COPD) 10/26/2018 09/12/2019 documented as of this encounter (statuses as of 12/08/2021) [facility] History of Past illness Narrative* Problem Noted Date Resolved Date Atrial fibrillation, chronic 08/26/2020 Persistent atrial fibrillation 10/11/2019 0 11/12/2021 Overview: Admitted 09/05/2019 [facility]. Followed by [facility]. Asthma with chronic obstructive pulmonary diseas e (COPD) 10/26/2018 09/12/2019 documented as of this encounter (statuses as of 12/28/2021) [facility] History of Past illness Narrative* Problem Noted Date Resolved Date Atrial fibrillation, chronic 08/26/2020 Persistent atrial fibrillation 10/11/2019 0 11/12/2021 Overview: Admitted 09/05/2019 [facility]. Followed by [facility]. Asthma with chronic obstructive pulmonary diseas e (COPD) 10/26/2018 09/12/2019 documented as of this encounter (statuses as of 07/01/2022) [facility] History of Past illness Narrative* Problem Noted Date Resolved Date Atrial fibrillation, chronic 08/26/2020 Persistent atrial fibrillation 10/11/2019 0 11/12/2021 Overview: Admitted 09/05/2019 [facility]. Followed by [facility]. Asthma with chronic obstructive pulmonary diseas e (COPD) 10/26/2018 09/12/2019 documented as of this encounter (statuses as of 07/01/2022) [facility] of Past illness Narrative* Problem Noted Date Resolved Date Atrial fibrillation, chronic 08/26/2020 Persistent atrial fibrillation 10/11/2019 0 11/12/2021 Overview: Admitted 09/05/2019 [facility]. Followed by [facility]. Asthma with chronic obstructive pulmonary diseas e (COPD) 10/26/2018 09/12/2019 documented as of this encounter (statuses as of 07/22/2022) [facility] of Past illness Narrative* Problem Noted Date Resolved Date Atrial fibrillation, chronic 08/26/2020 Persistent atrial fibrillation 10/11/2019 0 11/12/2021 Overview: Admitted 09/05/2019 [facility]. Followed by [facility]. Asthma with chronic obstructive pulmonary diseas e (COPD) 10/26/2018 09/12/2019 documented as of this encounter (statuses as of 07/22/2022) [facility] of Past illness Narrative* Problem Noted Date Resolved Date Atrial fibrillation, chronic 08/26/2020 Persistent atrial fibrillation 10/11/2019 0 11/12/2021 Overview: Admitted 09/05/2019 [facility]. Followed by [facility]. Asthma with chronic obstructive pulmonary diseas e (COPD) 10/26/2018 09/12/2019 documented as of this encounter (statuses as of 07/26/2022) [facility] of Past illness Narrative* Problem Noted Date Resolved Date Atrial fibrillation, chronic 08/26/2020 Persistent atrial fibrillation 10/11/2019 0 11/12/2021 Overview: Admitted 09/05/2019 [facility]. Followed by [facility]. Asthma with chronic obstructive pulmonary diseas e (COPD) 10/26/2018 09/12/2019 documented as of this encounter (statuses as of 08/05/2022) [facility] History of Past illness Narrative* Problem Noted Date Resolved Date Atrial fibrillation, chronic 08/26/2020 Persistent atrial fibrillation 10/11/2019 0 11/12/2021 Overview: Admitted 09/05/2019 [facility]. Followed by [facility]. Asthma with chronic obstructive pulmonary diseas e (COPD) 10/26/2018 09/12/2019 documented as of this encounter (statuses as of 08/09/2022) [facility] History of Past illness Narrative* Problem Noted Date Resolved Date Atrial fibrillation, chronic 08/26/2020 Persistent atrial fibrillation 10/11/2019 0 11/12/2021 Overview: Admitted 09/05/2019 [facility]. Followed by [facility]. Asthma with chronic obstructive pulmonary diseas e (COPD) 10/26/2018 09/12/2019 documented as of this encounter (statuses as of 08/19/2022) [facility] History of Past illness Narrative* Problem Noted Date Resolved Date Atrial fibrillation, chronic 08/26/2020 Persistent atrial fibrillation 10/11/2019 0 11/12/2021 Overview: Admitted 09/05/2019 [facility]. Followed by [facility]. Asthma with chronic obstructive pulmonary diseas e (COPD) 10/26/2018 09/12/2019 documented as of this encounter (statuses as of 08/20/2022) [facility] History of Past illness Narrative* Problem Noted Date Diagnosed Date Resolved Date Atrial fibrillation, chronic 08/26/2020 11/12/2021 Persistent atrial fibrillation 10/11/2019 11/12/2021 Overview: Admitted 09/05/2019 [facility]. Followed by [facility]. Asthma with chronic obstruct steve pulmonary disease (COPD) 10/26/2018 09/12/2019 documented as of this encounter (statuses as of 08/31/2022) [facility] History of Past illness Narrative* Problem Noted Date Diagnosed Date Resolved Date Atrial fibrillation, chronic 08/26/2020 11/12/2021 Persistent atrial fibrillation 10/11/2019 11/12/2021 Overview: Admitted 09/05/2019 [facility]. Followed by [facility]. Asthma with chronic obstruct steve pulmonary disease (COPD) 10/26/2018 09/12/2019 documented as of this encounter (statuses as of 09/30/2022) [facility] History of Past illness Narrative* Problem Noted Date Diagnosed Date Resolved Date Atrial fibrillation, chronic 08/26/2020 11/12/2021 Persistent atrial fibrillation 10/11/2019 11/12/2021 Overview: Admitted 09/05/2019 [facility]. Followed by [facility]. Asthma with chronic obstruct steve pulmonary disease (COPD) 10/26/2018 09/12/2019 documented as of this encounter (statuses as of 10/12/2022) [facility] History of Past illness Narrative* Problem Noted Date Diagnosed Date Resolved Date Atrial fibrillation, chronic 08/26/2020 11/12/2021 Persistent atrial fibrillation 10/11/2019 11/12/2021 Overview: Admitted 09/05/2019 [facility]. Followed by [facility]. Asthma with chronic obstruct steve pulmonary disease (COPD) 10/26/2018 09/12/2019 documented as of this encounter (statuses as of 10/15/2022) [facility] History of Past illness Narrative* Problem Noted Date Diagnosed Date Resolved Date Atrial fibrillation, chronic 08/26/2020 11/12/2021 Persistent atrial fibrillation 10/11/2019 11/12/2021 Overview: Admitted 09/05/2019 [facility]. Followed by [facility]. 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 Followed by [facility]. Asthma with chronic obstruct steve pulmonary disease (COPD) 10/26/2018 09/12/2019 documented as of this encounter (statuses as of 10/21/2022) [facility] History of Past illness Narrative* Problem Noted Date Diagnosed Date Resolved Date Atrial fibrillation, chronic 08/26/2020 11/12/2021 Persistent atrial fibrillation 10/11/2019 11/12/2021 Overview: Admitted 09/05/2019 [facility]. Followed by [facility]. Asthma with chronic obstruct steve pulmonary disease (COPD) 10/26/2018 09/12/2019 documented as of this encounter (statuses as of 10/26/2022) [facility] History of Past illness Narrative* Problem Noted Date Diagnosed Date Resolved Date Atrial fibrillation, chronic 08/26/2020 11/12/2021 Persistent atrial fibrillation 10/11/2019 11/12/2021 Overview: Admitted 09/05/2019 [facility]. Followed by [facility]. Asthma with chronic obstruct steve pulmonary disease (COPD) 10/26/2018 09/12/2019 documented as of this encounter (statuses as of 11/01/2022) [facility] History of Past illness Narrative* Problem Noted Date Resolved Date Asthma with chronic obstructive pulmonary diseas e (COPD) 10/26/2018 09/12/2019 documented as of this encounter (statuses as of 08/07/2021) [facility] History of Past illness Narrative* Problem Noted Date Resolved Date Asthma with chronic obstructive pulmonary diseas e (COPD) 10/26/2018 09/12/2019 documented as of this encounter (statuses as of 10/05/2021) [facility] Sukhdev Mark [facility] Note Date/Time September 11, 2024 12:4 6pm [facility] Medical Records Department [address] [place] [address] Emergency Department Summary 09/11/24 MR#: [id number] Acct: [id number] Name: TAZ JOHNSON Rep #:[id number] : 1935 89 From: Sukhdev Mark MD [...] Prior similar symptoms: No Recent [facility] Medical History (Updated 09/11/24 @ 12:46 [...] radial and ulnar function intact right hand Valliant Coma Scale: document GCS findings Spontaneous Obeys [...] is no effusion. This independently reviewedinterpreted by ks at 1054.) Diagnostic Testing: Clinical Impression(s) from Imaging Studies Brain CT 09/11/24 10:23 IMPRESSION: There is low-density in the deep white matter on the right and left consistent with chronic ischemic change. No acute intracranial pathology or acute traumatic injury. Reading Location[facility] Knee X-Ray 09/11/24 10:35 IMPRESSION: Hardware in position. Reading Location: [facility] CT of the head without contrast independent reviewed by ks at 1041. There is noevidence of fracture, [...] next 2 doses of Eliquis Print Language: Jordanian Disposition Disposition: Home, Self Care What to do if you have Problems For any increased pain, shortness of breath, bleeding, nausea or vomiting, chestpain, or any unexpected problems, contact your Primary Care Provider. Call [facility] ([phone]) or report to the closest Emergency Room. Call 911 if necessary. 09/11/24 1246 <Electronically signed by Sukhdev Mark MD> Cosigner Signature (if applicable): CC: Dr. Dipak Aguilar, DO ~ Signed [facility] Work Phone: Discharge summary Author Abdelrahman Keller [facility] Note Date/Time October 14, 2024 8: [facility] Medical [facility] Department [address] [place] [address] Emergency Department Summary 10/14/24 MR#: [id number] Acct: [id number] Name: TAZ JOHNSON Rep #:[id number] : 1935 89 From: Abdelrahman Keller MD PCP: Dr. Dipak Aguilar, Status:RE G [...] of his antihypertensives. He denies taking any mlfh-myc-pebjylw medications recently including decongestants, or having any illness or injury. He has been urinating normally. [facility] Medical History (Updated 10/14/24 @ 08:24 by [...] lastchemistries were 1 year ago, although the merritt states he has had more recent labs through the [facility] where his PCP practices. Staff performed an [...] DO [Primary Care Provider] - Print Language: Jordanian Disposition Disposition: Home, Self Care What to do if you have Problems For any increased pain, shortness of breath, bleeding, nausea or vomiting, chestpain, or any unexpected problems, contact your Primary Care Provider. Call [facility] ([phone]) or report to the closest Emergency Room. Call 911 if necessary. 10/14/24 0844 <Electronically signed by Abdelrahman Keller MD> Cosigner Signature (if applicable): CC: Dr. Dipak Aguilar DO ~ Signed [facility] Work Phone: [facility] note* Diagnosis Need for vaccination- Primary Need for prophylactic vaccination and inoculation against unspecified single disease [facility] Diagnosis Skin lesion- Primary Unspecified disorder of skin and subcutaneous tissue documented in this encounter [facility] note* Diagnosis Acute otitis externa of right ear, unspecified type- Primary Cellulitis of right external ear Infective otitis externa, unspecified [facility]* Diagnosis 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 tract symptoms (LUTS) Nocturia Poor urinary stream Slowing of urinary stream Frequency of micturition Urinary frequency Incomplete bladder emptying [facility]* Diagnosis BPH with obstruction/lower urinary tract [...] tract symptoms (LUTS) [facility]* Diagnosis Preoperative clearance- Primary Preoperative examination, unspecified Asthma-COPD overlap syndrome (HCC) Atrial fibrillation, unspecified type (HCC) Bladder neck contracture Bladder neck obstruction Poor urinary stream Slowing of urinary stream BPH with obstruction/lower urinary tract symptoms Hypertrophy of prostate with urinary obstruction and other lower urinary tract symptoms (LUTS) documented [facility]* Diagnosis 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 tract symptoms (LUTS) documented [facility]* Diagnosis Bladder neck stricture- Primary Other specified disorders of bladder Nocturia Urinary incontinence, unspecified type [facility]* Diagnosis Permanent atrial fibrillation (HCC)- Primary Atrial fibrillation [facility] Diagnosis Weak urinary stream- Primary Slowing of urinary stream Incomplete bladder emptying Bladder neck stricture Other specified disorders of bladder Poor urinary stream Slowing of urinary stream Nocturia documented [facility]* Diagnosis Gastroesophageal reflux disease without esophagitis- Primary Esophageal reflux [facility] Diagnosis Weak urinary stream- Primary Slowing of urinary stream Bladder neck stricture Other specified disorders of bladder Frequency of micturition Urinary frequency Bladder neck obstruction [facility] Diagnosis 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 tract symptoms (LUTS) [facility] Diagnosis Permanent atrial fibrillation (HCC) Atrial fibrillation [facility] Diagnosis Poor urinary stream Slowing of urinary stream [facility] Diagnosis Bladder neck stricture- Primary Other specified disorders of bladder 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 of organic origin [facility]* Diagnosis Screening for ischemic heart disease- Primary Shortness of breath Permanent atrial fibrillation (HCC) Atrial fibrillation [facility] Diagnosis Permanent atrial fibrillation (HCC) Atrial [...] (HCC) Atrial fibrillation [facility] Diagnosis Permanent atrial fibrillation (HCC) Atrial [...] neoplasm of prostate [facility] Diagnosis Permanent atrial fibrillation (HCC) Atrial [...] region and thigh [facility]* Diagnosis Permanent atrial fibrillation (HCC) Atrial [...] spondylosis without myelopathy [facility] Diagnosis Permanent atrial fibrillation (HCC) Atrial [...] region and thigh documented in this encounter [facility] note* Diagnosis Knee injury, right, initial encounter [...] diagnosis of hypertension documented in this encounter [facility] note* Diagnosis Permanent atrial fibrillation (HCC) [...] and behavioral disorders [facility] Diagnosis Permanent atrial fibrillation (HCC) Atrial [...] Productive cough Cough documented in this encounter [facility] note* Diagnosis Permanent atrial fibrillation (HCC) [...] Productive cough Cough [facility]* Diagnosis Permanent atrial fibrillation (HCC) Atrial [...] heart disease- Primary [facility] Diagnosis Permanent atrial fibrillation (HCC) Atrial [...] Shortness of breath [facility]* Diagnosis Permanent atrial fibrillation (HCC) Atrial [...] Solitary pulmonary nodule [facility] Diagnosis Permanent atrial fibrillation (HCC) Atrial [...] (HCC) Atrial fibrillation [facility] Diagnosis Permanent atrial fibrillation (HCC) Atrial [...] Abnormality of gait documented in this encounter [facility] note* Diagnosis Permanent atrial fibrillation (HCC) [...] leg edema Edema documented in this encounter [facility] note* Diagnosis Permanent atrial fibrillation (HCC) [...] Unspecified essential hypertension [facility]* Diagnosis Permanent atrial fibrillation (HCC) Atrial [...] diabetes mellitus (HCC) [facility] Diagnosis Permanent atrial fibrillation (HCC) Atrial [...] (HCC) Atrial fibrillation [facility] Diagnosis Permanent atrial fibrillation (HCC) Atrial [...] (HCC) Atrial fibrillation [facility] Diagnosis Permanent atrial fibrillation (HCC) Atrial [...] diabetes mellitus (HCC) documented in this encounter [facility] note* Diagnosis Permanent atrial fibrillation (HCC) [...] Primary Atrial fibrillation documented in this encounter [facility] noteNo assessment information availableWShelby [facility] Work Phone: Evaluation note* Diagnosis Permanent [...] Fatigue, unspecified type documented in this encounter [facility] note* Diagnosis Permanent atrial fibrillation (HCC) [...] of circulatory system [facility]* Diagnosis Permanent atrial fibrillation (HCC) Atrial [...] head, initial encounter- Primary 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, 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 Long-term (current) use of anticoagulants Laceration without foreign body of right hand, initial encounter Atrial fibrillation, unspecified type (HCC) documented in this encounter [facility] note* Diagnosis Permanent atrial fibrillation (HCC) [...] subsequent encounter- Primary documented in this encounter [facility] note* Diagnosis Permanent atrial fibrillation (HCC) [...] subsequent encounter- Primary [facility]* Diagnosis Onset Date Resolution Status Admit Date Acute cholecystitis acute Septe mber 2024 10:50pm Atrial fibrillation with RVR acute October 26, 2024 10:50pm Essential hypertension acute Se ptember 2024 10:50pm Lactic acidosis acute October 26, 2024 10:50pm Sepsis acute October 26, 2024 10:50pm [facility] Work Phone: History and physical note Author Fernanda Triplett [facility] Note Date/Time October 27, 2024 12:10am [facility] Medical Records Department [address] [place] [address] H&P Exam - Hospitalist 10/26/242 MR#: [id number] Acct: [id number] Name: TAZ JOHNSON Rep #:[id number] : 1935 89 From: Fernanda Triplett MD [...] Former tobacco use who presents to the [facility] ED on 10/26/2024 with onset of [...] Tuesday, may be percutaneous drain but uncertain. 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 Reading Location: [facility] Gallbladder Ultrasound 10/26/24 18:37 IMPRESSION: 1. Distended gallbladder with gallstones, sludge, wall thickening and pericholecystic edema. Correlate clinically for signs of acute cholecystitis. 2. Mildly nodular liver contour with coarsened echotexture. This could represent early signs of hepatic cirrhosis. 3. Minimal ascites. Reading Location: [facility] Assessment & Plan Assessment/Plan (1) Sepsis: (2) Acute cholecystitis: PLAN: Plan The patient is an 89 y/o M w/ PMHx: GERD, Hx CVA w/ associated memory impairment, CKD stage III unclear subtype per GFR trending, Diabetes mellitus type II, PAF, HTN, HLD, GERD, Hx Histoplasmosis, BPH s/p TURP, Former tobacco use who presents to the [facility] ED on 10/26/2024 with onset of [...] Will admit to the ICU, will consult sharepoint developer per protocol, will maintain on IVFs with [...] per Hospitalist.) Charges/Coding Visit Charges Inpatient E&M: 10269 Init Hosp L3 Procedures Hospitalists Procedures: 45735 Advncd Care Plan 30 Min 10/27/24 0010 <Electronically signed by Fernanda Triplett MD> Cosigner Signature (if applicable): CC: Dr. Fernanda Triplett MD; Dr. Dipak Aguilar DO~ Signed [facility] Work Phone: Hospital Discharge instructionsAdditional Instructions 1. Please get an appointment within the next 2 weeks to follow-up with your urologist at [facility] Main campus Date [facility]charge: [facility] Work Phone: Reason for referral (narrative)* Outpatient Procedure (Routine) - Closed Specialty Diagnoses / Procedures Referred By Contac t Referred To Contact [facility] [place] Diagnoses Preoperative clearance Procedures ECG COMPLETE ECG ROUTINE ECG W/LEAST 12 LDS W/I&R Crystal Pradhan APRN.CNP [address] [place] [address] [facility] [place] [address] [place] [address] Referral ID Status Reason Start Date Expiration Date V isits Requested Visits Authorized [id number] Closed Auto-Generate d Referral 07/26/2022 07/26/2023 1 1 [facility] for referral (narrative)* Diagnostic Procedure Only (Routine) - Authorized Specialty Diagnoses / Procedures Referred By Contac t Referred To Contact MOLECULAR & FUNCTIONAL IMAGING Diagnoses Shortness of breath Procedures NM CARDIAC PERF STRESS/EXERCISE MYOCARDIAL SPECT MULTIPLE STUDIES Analisa Nicole MD [address] [facility] [address] [place] [address] Molecular & Functional Imaging [address] [place] [address] Referral ID Status Reason Start Date Expiration Date Visits Requested Visits Authorized [id number] Authorized Auto-Generat ed Referral 09/26/2023 10/11/2024 1 1 * Outpatient Procedure (Routine) - Authorized Specialty Diagnoses / Procedures Referred By Contac t Referred To Contact [facility] [place] Diagnoses Shortness of breath Procedures ECHO ECHO TTHRC R-T 2D W/WOM-MODE COMPL SPEC&COLR D Analisa Nicole MD [address], [address] [place] [address] [facility] [address] [place] [address] Referral ID Status Reason Start Date Expiration Date Visits Requested Visits Authorized [id number] Authorized Auto-Generat ed Referral 09/26/2023 09/11/2024 1 1 * Outpatient Procedure (Routine) - New Request Specialty Diagnoses / Procedures Referred By Enrrique t Referred To Contact [facility] [place] Diagnoses Screening for ischemic heart disease Procedures ECG COMPLETE ECG ROUTINE ECG W/LEAST 12 LDS W/I&R Analisa Nicole MD [address], [address] [place] [address] [place] [id number] Referral ID Status Reason Start Date Expiration Date Visits Requested Visits Authorized [id number] New Request Auto-Generat ed Referral 09/12/2023 09/07/2024 1 1 [facility] for referral (narrative)* Diagnostic Procedure Only (Routine) - New Request Specialty Diagnoses / Procedures Referred By Enrrique t Referred To Contact XR IMAGING Diagnoses Bilateral hip pain Procedures XR HIP BILATERAL 5V PEL/AP/LAT EACH HIP RADEX HIPS BILATERAL WITH PELVIS MINIMUM 5 VIEWS Jeffrey Hdz MD [facility] [place] [address] [place] [address] Referral ID Status Reason Start Date Expiration Date Visits Requested Visits Authorized [id number] New Request Auto-Generat ed Referral 11/10/2023 12/09/2024 1 1 * Diagnostic Procedure Only (Routine) - New Request Specialty Diagnoses / Procedures Referred By Contac t Referred To Contact XR IMAGING Diagnoses Bilateral hip pain Procedures XR KNEE GENERAL 4V AP BOTH/PA BOTH/LAT/MERC RIGHT RADIOLOGIC EXAM KNEE COMPLETE 4/MORE VIEWS Jeffrey Hdz MD [address] [place] [address] [place] [address] Referral ID Status Reason Start Date Expiration Date Visits Requested Visits Authorized [id number] New Request Auto-Generat ed Referral 11/10/2023 12/09/2024 1 1 [facility] for referral (narrative)* Diagnostic Procedure Only (Routine) - Closed Specialty Diagnoses / Procedures Referred By Contac t Referred To Contact XR IMAGING Diagnoses Bilateral hip pain Procedures XR LUMBAR LIMITED 2V AP/LAT RADEX SPINE LUMBOSACRAL 2/3 VIEWS Jeffrey Hdz MD [address] [place] [address] [place] [address] Referral ID Status Reason Start Date Expiration Date V isits Requested Visits Authorized [id number] Closed Auto-Generate d Referral 11/23/2023 12/22/2024 1 1 * Diagnostic Procedure Only (Routine) - Closed Specialty Diagnoses / Procedures Referred By Contac t Referred To Contact XR IMAGING Diagnoses Bilateral hip pain Procedures XR HIP BILATERAL 5V PEL/AP/LAT EACH HIP RADEX HIPS BILATERAL WITH PELVIS MINIMUM 5 VIEWS Jeffrey Hdz MD [address] [place] [address] [place] [address] Referral ID Status Reason Start Date Expiration Date V isits Requested Visits Authorized [id number] Closed Auto-Generate d Referral 11/10/2023 12/09/2024 1 1 * Diagnostic Procedure Only (Routine) - Closed Specialty Diagnoses / Procedures Referred By Contac t Referred To Contact XR IMAGING Diagnoses Bilateral hip pain Procedures XR KNEE GENERAL 4V AP BOTH/PA BOTH/LAT/MERC RIGHT RADIOLOGIC EXAM KNEE COMPLETE 4/MORE VIEWS Jeffrey Hdz MD [address] [place] [address] [place] [address] Referral ID Status Reason Start Date Expiration Date V isits Requested Visits Authorized [id number] Closed Auto-Generate d Referral 11/10/2023 12/09/2024 1 1 [facility] for referral (narrative)* Diagnostic Procedure Only (Urgent) - Closed Specialty Diagnoses / Procedures Referred By Contac t Referred To Contact XR IMAGING Diagnoses Knee injury, right, initial encounter Procedures XR KNEE GENERAL 4V AP BOTH/PA BOTH/LAT/MERC RT KNEE AP-WGT/LAT/MERCHANT Wes Chavez APRN.AUDIO VISUAL EQUIPMENT RENTAL CLERK [address] [place] [address] [place] [address] Referral ID Status Reason Start Date Expiration Date V isits Requested Visits Authorized [id number] Closed Auto-Generate d Referral 10/13/2020 11/12/2021 1 1 [facility] for referral (narrative)* Outpatient Procedure (Routine) - Authorized Specialty Diagnoses / Procedures Referred By Contac t Referred To Contact [facility] Diagnoses Wheezing Asthma-COPD overlap syndrome (HCC) SOB (shortness of breath) on exertion Decreased activity tolerance Productive cough Procedures LUNG VOLUMES Elisa Garcia REACHER.AUDIO VISUAL EQUIPMENT RENTAL CLERK [address] [place] [address] [facility] [address] [place] [address] Referral ID Status Reason Start Date Expiration Date Visits Requested Visits Authorized [id number] Authorized Auto-Generat ed Referral 11/29/2023 12/28/2024 1 1 * Outpatient Procedure (Routine) - Authorized Specialty Diagnoses / Procedures Referred By Contac t Referred To Contact [facility] Diagnoses Wheezing Asthma-COPD overlap syndrome (HCC) SOB (shortness of breath) on exertion Decreased activity tolerance Productive cough Procedures SPIROMETRY - BASELINE AND POST DILATOR BRNCDILAT RSPSE SPMTRY PRE&POST-BRNCDILAT ADMN Elisa Garcia APRN.AUDIO VISUAL EQUIPMENT RENTAL CLERK [address] [place] [address] [facility] [address] [place] [address] Referral ID Status Reason Start Date Expiration Date Visits Requested Visits Authorized [id number] Authorized Auto-Generat ed Referral 11/29/2023 12/28/2024 1 1 * MRI/CT (Routine) - Authorized Specialty Diagnoses / Procedures Referred By Александрac t Referred To Contact CT IMAGING Diagnoses Wheezing Asthma-COPD overlap syndrome (HCC) SOB (shortness of breath) on exertion Decreased activity tolerance Productive cough Procedures CT CHEST WO IVCON DIAGNOSTIC COMPUTED TOMOGRAPHY THORAX W/O CNTRST Elisa Garcia APRN.AUDIO VISUAL EQUIPMENT RENTAL CLERK [address] [place] [address] Ct Imaging [facility] Referral ID Status Reason Start Date Expiration Date Visits Requested Visits Authorized [id number] Authorized Auto-Generat ed Referral 11/29/2023 12/28/2024 1 1 [facility]No reason for referral information availableWShelby [facility] Work Phone: Reason for visit Narrative* Diagnostic Procedure Only (Routine) - Closed Specialty Diagnoses / Procedures Referred By Contac t Referred To Contact XR IMAGING Diagnoses Bilateral hip pain Procedures XR KNEE GENERAL 4V AP BOTH/PA BOTH/LAT/MERC RIGHT RADIOLOGIC EXAM KNEE COMPLETE 4/MORE VIEWS Jeffrey Hdz MD [address] [place] [address] [place] [address] Referral ID Status Reason Start Date Expiration Date V isits Requested Visits Authorized [id number] Closed Auto-Generate d Referral 11/10/2023 12/09/2024 1 1 [facility] for visit Narrative* Diagnostic Procedure Only (Urgent) - Closed Specialty Diagnoses / Procedures Referred By Contac t Referred To Contact XR IMAGING Diagnoses Knee injury, right, initial encounter Procedures XR KNEE GENERAL 4V AP BOTH/PA BOTH/LAT/MERC RT KNEE AP-WGT/LAT/MERCHANT Wes Chavez, REACHER.AUDIO VISUAL EQUIPMENT RENTAL CLERK [address] [place] [address] [place] [address] Referral ID Status Reason Start Date Expiration Date V isits Requested Visits Authorized [id number] Closed Auto-Generate d Referral 10/13/2020 11/12/2021 1 1 [facility] for visit Narrative* Diagnostic Procedure Only (Routine) - Closed Specialty Diagnoses / Procedures Referred By Contac t Referred To Contact [facility] Diagnoses Shortness of breath Procedures NM CARDIAC PERF STRESS/EXERCISE MYOCARDIAL SPECT MULTIPLE STUDIES Analisa Nicole MD [address], [address] [place] [address] Molecular [facility] [address] [place] [address] Referral ID Status Reason Start Date Expiration Date V isits Requested Visits Authorized [id number] Closed Auto-Generate d Referral 09/26/2023 10/11/2024 1 1 [facility] for visit Narrative* Diagnostic Procedure Only (Routine) - Closed Specialty Diagnoses / Procedures Referred By Contac t Referred To Contact US IMAGING Diagnoses Hospital discharge follow-up Bilateral leg edema Procedures US DVT LOWER BILATERAL DUP-SCAN XTR VEINS COMPLETE BILATERAL STUDY Radha Berman APRN.AUDIO VISUAL EQUIPMENT RENTAL CLERK [address] [place] [address] Phone: tel: fax: [place] [address] Referral ID Status Reason Start Date Expiration Date V isits Requested Visits Authorized [id number] Closed Auto-Generate d Referral 05/16/2024 06/15/2025 1 1 [facility] Summary Purpose Family History No Family History Records Found Relationship Condition Age at Onset Recorded Date/T rahul mother Malignant neoplasm of breast Unknown father Malignant neoplasm of colon Unknown Malignant melanoma Unknown brother Chronic obstructive pulmonary disease Unk nown grandfather Multiple myeloma Unknown Advance Directives No Advanced Directives Records FoundDocuments on File Type Date Recorded Patient Tooth Inspector Expl anation Advance Directive(s) 08/10/2017 8:34 AM Advance Directive Response Recorded Date/ Time Do you have a Healthcare Power of Torch Straightener? Yes September 11, 2024 10:22am Documents on File Type Date Recorded Patient Tooth Inspector Expl anation Advance Directive(s) 09/27/2024 5:29 PM Advance Directive(s) 09/26/2024 8:52 AM Advance Directive Response Recorded Date/ Time Do you have a Healthcare Power of Torch Straightener? Yes September 11, 2024 10:22am Do you have a Healthcare Power of Torch Straightener? Yes October 14, 2024 7:42am Name of Medical Power of Torch Straightener [facility] October 14, 2024 7:42am Advance Directive Response Recorded Date/ Time Do you have a Healthcare Power of Torch Straightener? Yes September 11, 2024 10:22am Do you have a Healthcare Power of Torch Straightener? Yes October 14, 2024 7:42am Name of Medical Power of Torch Straightener [facility] October 14, 2024 7:42am Do you have a Healthcare Power of Torch Straightener? Yes October 26, 2024 6:18pm Advance Directive Response Recorded Date/ Time Do you have a Healthcare Pow er of Torch Straightener? Yes September 11, 2024 10:22am Do you have a Healthcare Pow er of Torch Straightener? Yes October 14, 2024 7:42am Name of Medical Power of Torch Straightener [facility] October 14, 2024 7:42am Do you have a Healthcare Pow er of Torch Straightener? Yes October 27, 2024 12:42am Advance Directive Response Recorded Date/ Time Do you have a Healthcare Pow er of Torch Straightener? Yes September 11, 2024 10:22am Do you have a Healthcare Pow er of Torch Straightener? Yes October 14, 2024 7:42am Name of Medical Power of Torch Straightener [facility] October 14, 2024 7:42am Do you have a Healthcare Pow er of Torch Straightener? Yes November 08, 2024 1:53pm Name of Medical Power of Torch Straightener Anika Johnson , November 08, 2024 1:53pm Do you have a Healthcare Pow er of Torch Straightener? Yes October 27, 2024 12:42am Do you have a Healthcare Pow er of Torch Straightener? Yes November 10, 2024 5:51pm Name of Medical Power of Torch Straightener edel christian November 10, 2024 5:51pm Medications Administered Section Inactive Administered Medications - [...] 1100, Prior to UDS Procedure Given by [facility] 10/19/2022 11:49 AM EDT 6 mL Other sulfamethoxazole-trimethoprim 800-160 mg 1 tablet (BACTRIM DS) 1 tablet, ORAL, ONCE, 1 dose, On Tue10/19/22 at 1100, One tab prior to procedure, Please document the antimicrobial indication: Prophylaxis Given 10/19/2022 11:49 AM EDT 1 tablet Oral Reason for Referral Specialty Diagnoses / Procedures Referred By Enrrique t Referred To Contact Gastroenterology Diagnoses Gastroesophageal reflux disease without esophagitis Procedures CONSULT TO GASTROENTEROLOGY OFFICE/OUTPATIENT [facility] 60-74 MINUTES Radha Berman APRN.AUDIO VISUAL EQUIPMENT RENTAL CLERK [address] [place] [address] Referral ID Status Reason Start Date Expiration Date Visits Requested Visits Authorized [id number] Pending Review PCP Requested Referral 10/14/2022 10/14/2023 1 1 Specialty Diagnoses / Procedures Referred By Contac t Referred To Contact [facility] Diagnoses Lumbar spondylosis Procedures CONSULT TO [facility] OFFICE/OUTPATIENT [facility] 60 MINUTES Jeffrey Hdz MD [address] [place] [address] Referral ID Status Reason Start Date Expiration Date Visits Requested Visits Authorized [id number] Authorized PCP Requested Referral 11/23/2023 11/22/2024 1 1 Specialty Diagnoses / Procedures Referred By Contac t Referred To Contact XR IMAGING Diagnoses Bilateral hip pain Procedures XR LUMBAR LIMITED 2V AP/LAT RADEX SPINE LUMBOSACRAL 2/3 VIEWS Jeffrey Hdz MD [address] [place] [address] [place] [address] Referral ID Status Reason Start Date Expiration Date V isits Requested Visits Authorized [id number] Closed Auto-Generate d Referral 11/23/2023 12/22/2024 1 1 Specialty Diagnoses / Procedures Referred By Contac t Referred To Contact Pulmonary Disease Diagnoses Lung nodule Procedures CONSULT TO LUNG NODULE CLINIC OFFICE/OUTPATIENT [facility] 60 MINUTES Elisa Garcia, REACHER.AUDIO VISUAL EQUIPMENT RENTAL CLERK [address] [place] [address] Referral ID Status Reason Start Date Expiration Date Visits Requested Visits Authorized [id number] Authorized PCP Requested Referral 12/12/2024 1 1 [...] 10:50pm Chronic a-fib October 26, 2024 10:50pm Chief Complaint Admit Date FALL September 11, 2024 10:1 3am HTN October 14, 2024 7: 29am SEPSIS, ACUTE CHOLECYSTITIS October 10:50pm SEPSIS, ACUTE CHOLECYSTITIS October 7:33am SEPSIS, ACUTE CHOLECYSTITIS October 2:54pm SEPSIS, ACUTE CHOLECYSTITIS October 8:24am SEPSIS, ACUTE CHOLECYSTITIS October 1:35pm RT SHOULDER PAIN October 28, 2024 2:44pm SEPSIS, ACUTE CHOLECYSTITIS October 9:22am SEPSIS, ACUTE [...] 7:58am SEPSIS, ACUTE CHOLECYSTITIS November 022024 7:34am SWELLING BUE October 28, 2024 2:44pm SEPSIS, ACUTE CHOLECYSTITIS November 032024 7:21am SEPSIS, ACUTE CHOLECYSTITIS November 042024 1:05pm SEPSIS, ACUTE CHOLECYSTITIS November 052024 10:39am SEPSIS, ACUTE CHOLECYSTITIS November 062024 7:10am SEPSIS, ACUTE CHOLECYSTITIS November 062024 9:30am cholecystitis November 06, 2024 1:35pm afib rvr November 10, 2024 5:49pm Reason for Visit Admit Date Anticoagulant long-term use October 10:50pm Essential hypertension October 26 10:50pm Palliative care encounter October 26, 2024 10:50pm Chronic a-fib October 26, 2024 10:50pm Acute cholecystitis October 26, 2024 10:50pm Atrial fibrillation with RVR October 262024 10:50pm Dyspnea on exertion October 26, 2024 10:50pm Elevated blood pressure read ing with diagnosis of hypertension October 26, 2024 10:50pm Lactic acidosis October 26, 2024 10:50pm Sepsis October 26, 2024 10:50pm Asthma November 06, 2024 1:35pm Debility November 06, 2024 1:35pm Dysphagia November 06, 2024 1:35pm Essential hypertension November 06, 025 1:35pm [facility]ERD [facility]es[facility] 1:35pm Hyperlipidemia November 06, 2024 1:35pm Type 2 diabetes mellitus with hyperglyce nicole November 06, 2024 1:35pm Vitamin D deficiency November 06 1:35pm Acute cholecystitis November 06, 2024 1:35pm Acute on chronic 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) November 06, 2024 1:35pm Acute respiratory failure with hypoxia [facility] 2024 1:35pm Aspiration pneumonia November 06 1:35pm Atrial fibrillation with RVR October 222024 1:35pm Encephalopathy November 06, 2024 1:35pm Sepsis November 06, 2024 1:35pm Chief Complaint Admit Date FALL September 11, 2024 10:1 3am HTN October 14, 2024 7: 29am SEPSIS, ACUTE CHOLECYSTITIS October 10:50pm SEPSIS, ACUTE CHOLECYSTITIS October 7:33am SEPSIS, ACUTE CHOLECYSTITIS October 2:54pm SEPSIS, ACUTE CHOLECYSTITIS October 8:24am SEPSIS, ACUTE CHOLECYSTITIS October 1:35pm RT SHOULDER PAIN October 28, 2024 2:44pm SEPSIS, ACUTE CHOLECYSTITIS October 9:22am SEPSIS, ACUTE [...] 7:58am SEPSIS, ACUTE CHOLECYSTITIS November 022024 7:34am SWELLING BUE October 28, 2024 2:44pm SEPSIS, ACUTE CHOLECYSTITIS November 032024 7:21am SEPSIS, ACUTE CHOLECYSTITIS November 042024 1:05pm SEPSIS, ACUTE CHOLECYSTITIS November 052024 10:39am SEPSIS, ACUTE CHOLECYSTITIS November 062024 7:10am SEPSIS, ACUTE CHOLECYSTITIS November 062024 9:30am cholecystitis November 06, 2024 1:35pm afib rvr November 10, 2024 5:49pm DRAIN REMOVAL November 23, 2024 1: 22pm Additional Source Comments (unrecognized sect ion and content) No Status Records FoundNo Status Records FoundNo Status Records FoundNo Status Records FoundNo Status Records FoundNo Status Records Found INFORMATION SOURCE (unrecogn ized section and content) DATE CREATED AUTHOR 11/28/2017 [facility] DATE CREATED AUTHOR AUTHOR'S ORGANIZ ATION 10/03/[address] [facility] DATE CREATED AUTHOR AUTHOR'S ORGANIZ ATION 11/26/2023 [facility] DATE CREATED AUTHOR AUTHOR'S ORGANIZ ATION 01/26/2024 [facility] DATE CREATED AUTHOR AUTHOR'S ORGANIZ ATION 12/07/2024 [facility] DATE CREATED AUTHOR AUTHOR'S ORGANIZ ATION 12/15/2024 [facility] Source Comments (unrecognize d section and content) In the event this informatio n is protected by the Federal Confidentiality of Alcohol and Drug Abuse Patient Records regulations: The Federal rules restrict any use of the information to criminally investigate or prosecute any alcohol or drug abuse patient.[facility] the event this information is protected by the Federal Confidentiality of Alcohol and Drug Abuse Patient Records regulations: The Federal rules restrict any use of the information to criminally investigate or prosecute any alcohol or drug abuse patient.[facility] HospitalIn the event this information is protected by the Federal Confidentiality of Alcohol and Drug Abuse Patient Records regulations: The Federal rules restrict any use of the information to criminally investigate or prosecute any alcohol or drug abuse patient.[facility] HospitalIn the event this information is protected by the Federal Confidentiality of Alcohol and Drug Abuse Patient Records regulations: The Federal rules restrict any use of the information to criminally investigate or prosecute any alcohol or drug abuse patient.[facility] HospitalIn the event this information is protected by the Federal Confidentiality of Alcohol and Drug Abuse Patient Records regulations: The Federal rules restrict any use of the information to criminally investigate or prosecute any alcohol or drug abuse patient.[facility] HospitalIn the event this information is protected by the Federal Confidentiality of Alcohol and Drug Abuse Patient Records regulations: The Federal rules restrict any use of the information to criminally investigate or prosecute any alcohol or drug abuse patient.[facility] HospitalIn the event this information is protected by the Federal Confidentiality of Alcohol and Drug Abuse Patient Records regulations: The Federal rules restrict any use of the information to criminally investigate or prosecute any alcohol or drug abuse patient.[facility] HospitalIn the event this information is protected by the Federal Confidentiality of Alcohol and Drug Abuse Patient Records regulations: The Federal rules restrict any use of the information to criminally investigate or prosecute any alcohol or drug abuse patient.[facility] HospitalIn the event this information is protected by the Federal Confidentiality of Alcohol and Drug Abuse Patient Records regulations: The Federal rules restrict any use of the information to criminally investigate or prosecute any alcohol or drug abuse patient.[facility] HospitalIn the event this information is protected by the Federal Confidentiality of Alcohol and Drug Abuse Patient Records regulations: The Federal rules restrict any use of the information to criminally investigate or prosecute any alcohol or drug abuse patient.[facility] HospitalIn the event this information is protected by the Federal Confidentiality of Alcohol and Drug Abuse Patient Records regulations: The Federal rules restrict any use of the information to criminally investigate or prosecute any alcohol or drug abuse patient.[facility] HospitalIn the event this information is protected by the Federal Confidentiality of Alcohol and Drug Abuse Patient Records regulations: The Federal rules restrict any use of the information to criminally investigate or prosecute any alcohol or drug abuse patient.[facility] HospitalIn the event this information is protected by the Federal Confidentiality of Alcohol and Drug Abuse Patient Records regulations: The Federal rules restrict any use of the information to criminally investigate or prosecute any alcohol or drug abuse patient.[facility] HospitalIn the event this information is protected by the Federal Confidentiality of Alcohol and Drug Abuse Patient Records regulations: The Federal rules restrict any use of the information to criminally investigate or prosecute any alcohol or drug abuse patient.[facility] HospitalIn the event this information is protected by the Federal Confidentiality of Alcohol and Drug Abuse Patient Records regulations: The Federal rules restrict any use of the information to criminally investigate or prosecute any alcohol or drug abuse patient.[facility] HospitalIn the event this information is protected by the Federal Confidentiality of Alcohol and Drug Abuse Patient Records regulations: The Federal rules restrict any use of the information to criminally investigate or prosecute any alcohol or drug abuse patient.[facility] HospitalIn the event this information is protected by the Federal Confidentiality of Alcohol and Drug Abuse Patient Records regulations: The Federal rules restrict any use of the information to criminally investigate or prosecute any alcohol or drug abuse patient.[facility] HospitalIn the event this information is protected by the Federal Confidentiality of Alcohol and Drug Abuse Patient Records regulations: The Federal rules restrict any use of the information to criminally investigate or prosecute any alcohol or drug abuse patient.[facility] HospitalIn the event this information is protected by the Federal Confidentiality of Alcohol and Drug Abuse Patient Records regulations: The Federal rules restrict any use of the information to criminally investigate or prosecute any alcohol or drug abuse patient.[facility] HospitalIn the event this information is protected by the Federal Confidentiality of Alcohol and Drug Abuse Patient Records regulations: The Federal rules restrict any use of the information to criminally investigate or prosecute any alcohol or drug abuse patient.[facility] HospitalIn the event this information is protected by the Federal Confidentiality of Alcohol and Drug Abuse Patient Records regulations: The Federal rules restrict any use of the information to criminally investigate or prosecute any alcohol or drug abuse patient.[facility] HospitalIn the event this information is protected by the Federal Confidentiality of Alcohol and Drug Abuse Patient Records regulations: The Federal rules restrict any use of the information to criminally investigate or prosecute any alcohol or drug abuse patient.[facility] HospitalIn the event this information is protected by the Federal Confidentiality of Alcohol and Drug Abuse Patient Records regulations: The Federal rules restrict any use of the information to criminally investigate or prosecute any alcohol or drug abuse patient.[facility] HospitalIn the event this information is protected by the Federal Confidentiality of Alcohol and Drug Abuse Patient Records regulations: The Federal rules restrict any use of the information to criminally investigate or prosecute any alcohol or drug abuse patient.[facility] HospitalIn the event this information is protected by the Federal Confidentiality of Alcohol and Drug Abuse Patient Records regulations: The Federal rules restrict any use of the information to criminally investigate or prosecute any alcohol or drug abuse patient.[facility] HospitalIn the event this information is protected by the Federal Confidentiality of Alcohol and Drug Abuse Patient Records regulations: The Federal rules restrict any use of the information to criminally investigate or prosecute any alcohol or drug abuse patient.[facility] HospitalIn the event this information is protected by the Federal Confidentiality of Alcohol and Drug Abuse Patient Records regulations: The Federal rules restrict any use of the information to criminally investigate or prosecute any alcohol or drug abuse patient.[facility] HospitalIn the event this information is protected by the Federal Confidentiality of Alcohol and Drug Abuse Patient Records regulations: The Federal rules restrict any use of the information to criminally investigate or prosecute any alcohol or drug abuse patient.[facility] HospitalIn the event this information is protected by the Federal Confidentiality of Alcohol and Drug Abuse Patient Records regulations: The Federal rules restrict any use of the information to criminally investigate or prosecute any alcohol or drug abuse patient.[facility] HospitalIn the event this information is protected by the Federal Confidentiality of Alcohol and Drug Abuse Patient Records regulations: The Federal rules restrict any use of the information to criminally investigate or prosecute any alcohol or drug abuse patient.[facility] HospitalIn the event this information is protected by the Federal Confidentiality of Alcohol and Drug Abuse Patient Records regulations: The Federal rules restrict any use of the information to criminally investigate or prosecute any alcohol or drug abuse patient.[facility] HospitalIn the event this information is protected by the Federal Confidentiality of Alcohol and Drug Abuse Patient Records regulations: The Federal rules restrict any use of the information to criminally investigate or prosecute any alcohol or drug abuse patient.[facility] HospitalIn the event this information is protected by the Federal Confidentiality of Alcohol and Drug Abuse Patient Records regulations: The Federal rules restrict any use of the information to criminally investigate or prosecute any alcohol or drug abuse patient.[facility] HospitalIn the event this information is protected by the Federal Confidentiality of Alcohol and Drug Abuse Patient Records regulations: The Federal rules restrict any use of the information to criminally investigate or prosecute any alcohol or drug abuse patient.[facility] HospitalIn the event this information is protected by the Federal Confidentiality of Alcohol and Drug Abuse Patient Records regulations: The Federal rules restrict any use of the information to criminally investigate or prosecute any alcohol or drug abuse patient.[facility] HospitalIn the event this information is protected by the Federal Confidentiality of Alcohol and Drug Abuse Patient Records regulations: The Federal rules restrict any use of the information to criminally investigate or prosecute any alcohol or drug abuse patient.[facility] HospitalIn the event this information is protected by the Federal Confidentiality of Alcohol and Drug Abuse Patient Records regulations: The Federal rules restrict any use of the information to criminally investigate or prosecute any alcohol or drug abuse patient.[facility] HospitalIn the event this information is protected by the Federal Confidentiality of Alcohol and Drug Abuse Patient Records regulations: The Federal rules restrict any use of the information to criminally investigate or prosecute any alcohol or drug abuse patient.[facility] HospitalIn the event this information is protected by the Federal Confidentiality of Alcohol and Drug Abuse Patient Records regulations: The Federal rules restrict any use of the information to criminally investigate or prosecute any alcohol or drug abuse patient.[facility] HospitalIn the event this information is protected by the Federal Confidentiality of Alcohol and Drug Abuse Patient Records regulations: The Federal rules restrict any use of the information to criminally investigate or prosecute any alcohol or drug abuse patient.[facility] HospitalIn the event this information is protected by the Federal Confidentiality of Alcohol and Drug Abuse Patient Records regulations: The Federal rules restrict any use of the information to criminally investigate or prosecute any alcohol or drug abuse patient.[facility] HospitalIn the event this information is protected by the Federal Confidentiality of Alcohol and Drug Abuse Patient Records regulations: The Federal rules restrict any use of the information to criminally investigate or prosecute any alcohol or drug abuse patient.[facility] HospitalIn the event this information is protected by the Federal Confidentiality of Alcohol and Drug Abuse Patient Records regulations: The Federal rules restrict any use of the information to criminally investigate or prosecute any alcohol or drug abuse patient.[facility] HospitalIn the event this information is protected by the Federal Confidentiality of Alcohol and Drug Abuse Patient Records regulations: The Federal rules restrict any use of the information to criminally investigate or prosecute any alcohol or drug abuse patient.[facility] HospitalIn the event this information is protected by the Federal Confidentiality of Alcohol and Drug Abuse Patient Records regulations: The Federal rules restrict any use of the information to criminally investigate or prosecute any alcohol or drug abuse patient.[facility] HospitalIn the event this information is protected by the Federal Confidentiality of Alcohol and Drug Abuse Patient Records regulations: The Federal rules restrict any use of the information to criminally investigate or prosecute any alcohol or drug abuse patient.[facility] HospitalIn the event this information is protected by the Federal Confidentiality of Alcohol and Drug Abuse Patient Records regulations: The Federal rules restrict any use of the information to criminally investigate or prosecute any alcohol or drug abuse patient.[facility] HospitalIn the event this information is protected by the Federal Confidentiality of Alcohol and Drug Abuse Patient Records regulations: The Federal rules restrict any use of the information to criminally investigate or prosecute any alcohol or drug abuse patient.[facility] HospitalIn the event this information is protected by the Federal Confidentiality of Alcohol and Drug Abuse Patient Records regulations: The Federal rules restrict any use of the information to criminally investigate or prosecute any alcohol or drug abuse patient.[facility] HospitalIn the event this information is protected by the Federal Confidentiality of Alcohol and Drug Abuse Patient Records regulations: The Federal rules restrict any use of the information to criminally investigate or prosecute any alcohol or drug abuse patient.[facility] HospitalIn the event this information is protected by the Federal Confidentiality of Alcohol and Drug Abuse Patient Records regulations: The Federal rules restrict any use of the information to criminally investigate or prosecute any alcohol or drug abuse patient.[facility] HospitalIn the event this information is protected by the Federal Confidentiality of Alcohol and Drug Abuse Patient Records regulations: The Federal rules restrict any use of the information to criminally investigate or prosecute any alcohol or drug abuse patient.[facility] HospitalIn the event this information is protected by the Federal Confidentiality of Alcohol and Drug Abuse Patient Records regulations: The Federal rules restrict any use of the information to criminally investigate or prosecute any alcohol or drug abuse patient.[facility] HospitalIn the event this information is protected by the Federal Confidentiality of Alcohol and Drug Abuse Patient Records regulations: The Federal rules restrict any use of the information to criminally investigate or prosecute any alcohol or drug abuse patient.[facility] HospitalIn the event this information is protected by the Federal Confidentiality of Alcohol and Drug Abuse Patient Records regulations: The Federal rules restrict any use of the information to criminally investigate or prosecute any alcohol or drug abuse patient.[facility] HospitalIn the event this information is protected by the Federal Confidentiality of Alcohol and Drug Abuse Patient Records regulations: The Federal rules restrict any use of the information to criminally investigate or prosecute any alcohol or drug abuse patient.[facility] HospitalIn the event this information is protected by the Federal Confidentiality of Alcohol and Drug Abuse Patient Records regulations: The Federal rules restrict any use of the information to criminally investigate or prosecute any alcohol or drug abuse patient.[facility] HospitalIn the event this information is protected by the Federal Confidentiality of Alcohol and Drug Abuse Patient Records regulations: The Federal rules restrict any use of the information to criminally investigate or prosecute any alcohol or drug abuse patient.[facility] HospitalIn the event this information is protected by the Federal Confidentiality of Alcohol and Drug Abuse Patient Records regulations: The Federal rules restrict any use of the information to criminally investigate or prosecute any alcohol or drug abuse patient.[facility] HospitalIn the event this information is protected by the Federal Confidentiality of Alcohol and Drug Abuse Patient Records regulations: The Federal rules restrict any use of the information to criminally investigate or prosecute any alcohol or drug abuse patient.[facility] HospitalIn the event this information is protected by the Federal Confidentiality of Alcohol and Drug Abuse Patient Records regulations: The Federal rules restrict any use of the information to criminally investigate or prosecute any alcohol or drug abuse patient.[facility] HospitalIn the event this information is protected by the Federal Confidentiality of Alcohol and Drug Abuse Patient Records regulations: The Federal rules restrict any use of the information to criminally investigate or prosecute any alcohol or drug abuse patient.[facility] HospitalIn the event this information is protected by the Federal Confidentiality of Alcohol and Drug Abuse Patient Records regulations: The Federal rules restrict any use of the information to criminally investigate or prosecute any alcohol or drug abuse patient.[facility] HospitalIn the event this information is protected by the Federal Confidentiality of Alcohol and Drug Abuse Patient Records regulations: The Federal rules restrict any use of the information to criminally investigate or prosecute any alcohol or drug abuse patient.[facility] HospitalIn the event this information is protected by the Federal Confidentiality of Alcohol and Drug Abuse Patient Records regulations: The Federal rules restrict any use of the information to criminally investigate or prosecute any alcohol or drug abuse patient.[facility] HospitalIn the event this information is protected by the Federal Confidentiality of Alcohol and Drug Abuse Patient Records regulations: The Federal rules restrict any use of the information to criminally investigate or prosecute any alcohol or drug abuse patient.[facility] HospitalIn the event this information is protected by the Federal Confidentiality of Alcohol and Drug Abuse Patient Records regulations: The Federal rules restrict any use of the information to criminally investigate or prosecute any alcohol or drug abuse patient.[facility] HospitalIn the event this information is protected by the Federal Confidentiality of Alcohol and Drug Abuse Patient Records regulations: The Federal rules restrict any use of the information to criminally investigate or prosecute any alcohol or drug abuse patient.[facility] HospitalIn the event this information is protected by the Federal Confidentiality of Alcohol and Drug Abuse Patient Records regulations: The Federal rules restrict any use of the information to criminally investigate or prosecute any alcohol or drug abuse patient.[facility] HospitalIn the event this information is protected by the Federal Confidentiality of Alcohol and Drug Abuse Patient Records regulations: The Federal rules restrict any use of the information to criminally investigate or prosecute any alcohol or drug abuse patient.[facility] HospitalIn the event this information is protected by the Federal Confidentiality of Alcohol and Drug Abuse Patient Records regulations: The Federal rules restrict any use of the information to criminally investigate or prosecute any alcohol or drug abuse patient.[facility] HospitalIn the event this information is protected by the Federal Confidentiality of Alcohol and Drug Abuse Patient Records regulations: The Federal rules restrict any use of the information to criminally investigate or prosecute any alcohol or drug abuse patient.[facility] HospitalIn the event this information is protected by the Federal Confidentiality of Alcohol and Drug Abuse Patient Records regulations: The Federal rules restrict any use of the information to criminally investigate or prosecute any alcohol or drug abuse patient.[facility] HospitalIn the event this information is protected by the Federal Confidentiality of Alcohol and Drug Abuse Patient Records regulations: The Federal rules restrict any use of the information to criminally investigate or prosecute any alcohol or drug abuse patient.[facility] HospitalIn the event this information is protected by the Federal Confidentiality of Alcohol and Drug Abuse Patient Records regulations: The Federal rules restrict any use of the information to criminally investigate or prosecute any alcohol or drug abuse patient.[facility] HospitalIn the event this information is protected by the Federal Confidentiality of Alcohol and Drug Abuse Patient Records regulations: The Federal rules restrict any use of the information to criminally investigate or prosecute any alcohol or drug abuse patient.[facility] HospitalIn the event this information is protected by the Federal Confidentiality of Alcohol and Drug Abuse Patient Records regulations: The Federal rules restrict any use of the information to criminally investigate or prosecute any alcohol or drug abuse patient.[facility] HospitalIn the event this information is protected by the Federal Confidentiality of Alcohol and Drug Abuse Patient Records regulations: The Federal rules restrict any use of the information to criminally investigate or prosecute any alcohol or drug abuse patient.[facility] HospitalIn the event this information is protected by the Federal Confidentiality of Alcohol and Drug Abuse Patient Records regulations: The Federal rules restrict any use of the information to criminally investigate or prosecute any alcohol or drug abuse patient.[facility] Care Teams (unrecognized sec tion and content) Heat Pump Installer Relationship Specialty Start Date End Date Dipak Aguilar, DO [address] [place] [address] PCP - General Family Practice 11/10/15 Heat Pump Installer Relationship Specialty Start Date End Date Dipak Aguilar DO [address] [place] [address] PCP - General Family Practice 11/10/15 Heat Pump Installer Relationship Specialty Start Date End Date Dipak Aguilar, DO [address] [place] [address] PCP - General Family Medicine 11/10/15 Heat Pump Installer Relationship Specialty Start Date End Date Dipak Aguilar, DO [address] [place] [address] PCP - General Family Medicine 11/10/15 Heat Pump Installer Relationship Specialty Start Date End Date Dipak Aguilar, DO [address] [place] [address] PCP - General Family Medicine 11/10/15 Heat Pump Installer Relationship Specialty Start Date End Date Dipak Aguilar, DO [address] [place] [address] PCP - General Family Medicine 11/10/15 Heat Pump Installer Relationship Specialty Start Date End Date Dipak Aguilar, DO [address] [place] [address] PCP - General Family Medicine 11/10/15 Heat Pump Installer Relationship Specialty Start Date End Date Dipak Aguilar, DO [address] [place] [address] PCP - General Family Medicine 11/10/15 Heat Pump Installer Relationship Specialty Start Date End Date Dipak Aguilar, DO [address] [place] [address] PCP - General Family Medicine 11/10/15 Heat Pump Installer Relationship Specialty Start Date End Date Dipak Aguilar, DO [address] [place] [address] PCP - General Family Medicine 11/10/15 Heat Pump Installer Relationship Specialty Start Date End Date Dipak Aguilar, DO [address] [place] [address] PCP - General Family Medicine 11/10/15 Heat Pump Installer Relationship Specialty Start Date End Date Dipak Aguilar, DO [address] [place] [address] PCP - General Family Medicine 11/10/15 Heat Pump Installer Relationship Specialty Start Date End Date Dipak Aguilar, DO [address] [place] [address] PCP - General Family Medicine 11/10/15 Heat Pump Installer Relationship Specialty Start Date End Date Dipak Aguilar, DO [address] [place] [address] PCP - General Family Medicine 11/10/15 Heat Pump Installer Relationship Specialty Start Date End Date Dipak Aguilar DO [address] [place] [address] PCP - General Family Medicine 11/10/15 Heat Pump Installer Relationship Specialty Start Date End Date Dipak Aguilar DO [address] [place] [address] PCP - General Family Medicine 11/10/15 Heat Pump Installer Relationship Specialty Start Date End Date Dipak Aguilar, [address] [place] [address] PCP - General Family Medicine 11/10/15 Heat Pump Installer Relationship Specialty Start Date End Date Dipak Aguilar DO [address] [place] [address] PCP - General Family Medicine 11/10/15 Heat Pump Installer Relationship Specialty Start Date End Date Dipak Aguilar, [address] [place] [address] PCP - General Family Medicine 11/10/15 Heat Pump Installer Relationship Specialty Start Date End Date Dipak Aguilar, [address] [place] [address] PCP - General Family Medicine 11/10/15 Heat Pump Installer Relationship Specialty Start Date End Date Dipak Aguilar DO [address] [place] [address] PCP - General Family Medicine 11/10/15 Heat Pump Installer Relationship Specialty Start Date End Date Dipak Aguilar, [address] [place] [address] PCP - General Family Medicine 11/10/15 Heat Pump Installer Relationship Specialty Start Date End Date Diapk Aguilar, [address] [place] [address] PCP - General Family Medicine 11/10/15 Heat Pump Installer Relationship Specialty Start Date End Date Dipak Aguilar, [address] [place] [address] PCP - General Family Medicine 11/10/15 Heat Pump Installer Relationship Specialty Start Date End Date Dipak Aguilar DO [address] [place] [address] PCP - General Family Medicine 11/10/15 Heat Pump Installer Relationship Specialty Start Date End Date Dipak Aguilar DO [address] [place] [address] PCP - General Family Medicine 11/10/15 Heat Pump Installer Relationship Specialty Start Date End Date Dipak Aguilar DO [address] [place] [address] PCP - General Family Medicine 11/10/15 Heat Pump Installer Relationship Specialty Start Date End Date Dipak Aguilar DO [address] [place] [address] PCP - General Family Medicine 11/10/15 Heat Pump Installer Relationship Specialty Start Date End Date Dipak Aguilar DO [address] [place] [address] PCP - General Family Medicine 11/10/15 Heat Pump Installer Relationship Specialty Start Date End Date Dipak Aguilar DO [address] [place] [address] PCP - General Family Medicine 11/10/15 Heat Pump Installer Relationship Specialty Start Date End Date Dipak Aguilar, [address] [place] [address] PCP - General Family Medicine 11/10/15 Ananya Corbin, LUPE [address] [id number] Aer[employer] Medicine Physician Family Medicine 10/02/2009/23 Heat Pump Installer Relationship Specialty Start Date End Date Dipak Aguilar, [address] [place] [address] PCP - General Family Medicine 11/10/15 Heat Pump Installer Relationship Specialty Start Date End Date Dipak Aguilar, [address] [place] [address] PCP - General Family Medicine 11/10/15 Heat Pump Installer Relationship Specialty Start Date End Date Dipak Aguilar, [address] [place] [address] PCP - General Family Medicine 11/10/15 Heat Pump Installer Relationship Specialty Start Date End Date Dipak Aguilar, [address] [place] [address] PCP - General Family Medicine 11/10/15 Heat Pump Installer Relationship Specialty Start Date End Date Dipak Aguilar, [address] [place] [address] PCP - General Family Medicine 11/10/15 Heat Pump Installer Relationship Specialty Start Date End Date Dipak Aguilar DO [address] [place] [address] PCP - General Family Medicine 11/10/15 Heat Pump Installer Relationship Specialty Start Date End Date Dipak Aguilar DO [address] [place] [address] PCP - General Family Medicine 11/10/15 Heat Pump Installer Relationship Specialty Start Date End Date Dipak Aguilar DO [address] [place] [address] PCP - General Family Medicine 11/10/15 Heat Pump Installer Relationship Specialty Start Date End Date Dipak Aguilar DO [address] [place] [address] PCP - General Family Medicine 11/10/15 Radha Berman, REACHER.AUDIO VISUAL EQUIPMENT RENTAL CLERK [address] [place] [address] [address] [employer] Family Medicine 01/29/24 Elisa Garcia, REACHER.AUDIO VISUAL EQUIPMENT RENTAL CLERK [address] [place] [address] [address] [employer] Family Medicine 01/29/24 Heat Pump Installer Relationship Specialty Start Date End Date Dipak Aguilar DO [address] [place] [address] PCP - General Family Medicine 11/10/15 Radha Berman, REACHER.AUDIO VISUAL EQUIPMENT RENTAL CLERK [address] [place] [address] [address] [employer] Family Medicine 01/29/24 Elisa Garcia, REACHER.AUDIO VISUAL EQUIPMENT RENTAL CLERK [address] [place] [address] [address] [employer] Family Medicine 01/29/24 Heat Pump Installer Relationship Specialty Start Date End Date Dipak Aguilar DO [address] [place] [address] PCP - General Family Medicine 11/10/15 Elisa Garcia, REACHER.AUDIO VISUAL EQUIPMENT RENTAL CLERK [address] [place] [address] [facility] [facility] Heat Pump Installer Relationship Specialty Start Date End Date Dipak Aguilar DO [address] [place] [address] PCP - General Family Medicine 11/10/15 Elisa Garcia, REACHER.AUDIO VISUAL EQUIPMENT RENTAL CLERK [address] [place] [address] [address] [facility] 01/[facility] Heat Pump Installer Relationship Specialty Start Date End Date Dipak Aguilar DO [address] [place] [address] PCP - General Family Medicine 11/10/15 ChanelleElisa, REACHER.AUDIO VISUAL EQUIPMENT RENTAL CLERK [address] [place] [address] [address] [facility] 01/29/24 Heat Pump Installer Relationship Specialty Start Date End Date Dipak Aguilar DO [address] [place] [address] PCP - General Family Medicine 11/10/15 ChanelleElisa, REACHER.AUDIO VISUAL EQUIPMENT RENTAL CLERK [address] [place] [address] [address] [facility] 01/29/24 Heat Pump Installer Relationship Specialty Start Date End Date Dipak Aguilar DO [address] [place] [address] PCP - General Family Medicine 11/10/15 ChanelleElisa, REACHER.AUDIO VISUAL EQUIPMENT RENTAL CLERK [address] [place] [address] [address] [employer] Family [facility] 01/29/24 Heat Pump Installer Relationship Specialty Start Date End Date Dipak Aguilar DO [address] [place] [address] PCP - General Family Medicine 11/10/15 ChanelleElisa, REACHER.AUDIO VISUAL EQUIPMENT RENTAL CLERK [address] [place] [address] [address] [employer] Family [facility] 01/29/24 Heat Pump Installer Relationship Specialty Start Date End Date Dipak Aguilar DO [address] [place] [address] PCP - General Family Medicine 11/10/15 ChanelleElisa, REACHER.AUDIO VISUAL EQUIPMENT RENTAL CLERK [address] [place] [address] [address] [employer] Family [facility] 01/29/24 Heat Pump Installer Relationship Specialty Start Date End Date Dipak Aguilar DO [address] [place] [address] PCP - General Family Medicine 11/10/15 ChanelleElisa, REACHER.AUDIO VISUAL EQUIPMENT RENTAL CLERK [address] [place] [address] [address] [employer] Family [facility] 01/29/24 Heat Pump Installer Relationship Specialty Start Date End Date Dipak Aguilar DO [address] [place] [address] PCP - General Family Medicine 11/10/15 ChanelleElisa, REACHER.AUDIO VISUAL EQUIPMENT RENTAL CLERK [address] [place] [address] [address] [employer] Family [facility] 01/29/24 Heat Pump Installer Relationship Specialty Start Date End Date Dipak Aguilar DO [address] [place] [address] PCP - General Family Medicine 11/10/15 ChanelleElisa, REACHER.AUDIO VISUAL EQUIPMENT RENTAL CLERK [address] [place] [address] [address] [facility] 01/29/24 Heat Pump Installer Relationship Specialty Start Date End Date Dipak Aguilar DO [address] [place] [address] PCP - General Family Medicine 11/10/15 ChanelleElisa, REACHER.AUDIO VISUAL EQUIPMENT RENTAL CLERK [address] [place] [address] [address] [employer] Family [facility] 01/29/24 Heat Pump Installer Relationship Specialty Start Date End Date Dipak Aguilar DO [address] [place] [address] PCP - General Family Medicine 11/10/15 Elisa Garcia, REACHER.AUDIO VISUAL EQUIPMENT RENTAL CLERK [address] [place] [address] [address] [employer] [facility] [facility] Heat Pump Installer Relationship Specialty Start Date End Date Dipak Aguilar DO [address] [place] [address] PCP - General Family Medicine 11/10/15 Elisa Garcia, REACHER.AUDIO VISUAL EQUIPMENT RENTAL CLERK [address] [place] [address] [address] [employer] [facility] 01/29/24 Heat Pump Installer Relationship Specialty Start Date End Date Dipak Aguilar DO [address] [place] [address] PCP - General Family Medicine 11/10/15 Elisa Garcia, REACHER.AUDIO VISUAL EQUIPMENT RENTAL CLERK [address] [place] [address] [employer] [address] [employer] [facility] 01/29/24 Ruma Chi, REACHER.AUDIO VISUAL EQUIPMENT RENTAL CLERK [address] [place] [address] [facility] Heat Pump Installer Relationship Specialty Start Date End Date Dipak Aguilar DO [address] [place] [address] PCP - General Family Medicine 11/10/15 ChanelleElisa, REACHER.AUDIO VISUAL EQUIPMENT RENTAL CLERK [address] [place] [address] [facility]24 Ruma Chi, REACHER.AUDIO VISUAL EQUIPMENT RENTAL CLERK [address] [place] [address] [facility] 08/06/24 Team Status: Active Member Role/Relationship Status Dates Dr. Dipak Aguilar DO Primary Care Provider Active Team Status: Inactive Member Role/Relationship Status Dates Dr. Dipak Aguilar DO Primary Care Provider Active Start: September 11, 2024 End: September 11, 2024 Dr. Sukhdev Mark MD Emergency Provider Active Sta rt: September 11, 2024 End: September 11, 2024 Heat Pump Installer Relationship Specialty Start Date End Date Dipak Aguilar DO [address] [place] [address] PCP - General Family Medicine 11/10/15 [facility]Elisa, REACHER.AUDIO VISUAL EQUIPMENT RENTAL CLERK [address] [place] [address] [facility] 01/29/24 Ruma Chi, REACHER.AUDIO VISUAL EQUIPMENT RENTAL CLERK [address] [place] [address] [facility] Heat Pump Installer Relationship Specialty Start Date End Date Dipak Aguilar DO [address] [place] [address] PCP - General Family Medicine 11/10/15 [facility]Elisa, REACHER.AUDIO VISUAL EQUIPMENT RENTAL CLERK [address] [place] [address] Hoe[employer] [address] [employer] [facility] 01/29/24 Ruma Chi, REACHER.AUDIO VISUAL EQUIPMENT RENTAL CLERK [address] [facility] [place] [address] [facility] 08/06/24 Heat Pump Installer Relationship Specialty Start Date End Date Dipak Aguilar DO [address] [place] [address] PCP - General Family Medicine 11/10/15 ChanelleElisa, REACHER.AUDIO VISUAL EQUIPMENT RENTAL CLERK [address] [place] [address] [facility] 01/29/24 Ruma Chi, REACHER.AUDIO VISUAL EQUIPMENT RENTAL CLERK [address] [place] [address] [facility] Heat Pump Installer Relationship Specialty Start Date End Date Dipak Aguilar DO [address] [place] [address] PCP - General Family Medicine 11/10/15 Elisa Garcia REACHER.AUDIO VISUAL EQUIPMENT RENTAL CLERK [address] [place] [address] [facility] 01/29/24 Ruma Chi, REACHER.AUDIO VISUAL EQUIPMENT RENTAL CLERK [address] [place], [place] [id number] [facility] 08/06/24 Team Status: Inactive Member Role/Relationship Status [...] Active Star t: October 26, 2024 Dr. eFrnanda Triplett MD Admit Provider Active St art: October 26, 2024 Dr. Fernanda Triplett MD Attending Provider Active Start: October 26, 2024 Dr. Fernanda Triplett MD Other Provider Active St art: October 26, 2024 Heat Pump Installer Relationship Specialty Start Date End Date Dipak Aguilar DO [address] [place], [place] [address] PCP - General Family Medicine 11/10/15 Elisa Garcia, REACHER.AUDIO VISUAL EQUIPMENT RENTAL CLERK [address] [place], [place] [address] Hoe[employer] Row [employer] [facility] 01/29/24 Ruma Chi, REACHER.AUDIO VISUAL EQUIPMENT RENTAL CLERK [address] [place], [place] [id number] [facility] Team Status: Inactive Member [...] , Primary Care Provider Active Start: October 27, [...] Sta rt: October 27, 2024 Dr. Jesus Zbaala MD Other Provider Active Star t: October [...] art: October 27, 2024 Dr. Jose Bergeron , Other Provider Active Start: October 27, 2024 Dr. Herb Kim MD Other Provider Active Start: October 27, 2024 Dr. Jacky Blackwood MD Other Provider Active Star t: October 27, 2024 Dr. Nancy Wang MD Other Provider Active Start: October 27, 2024 Dr. Elaine Duenas MD Other Provider Active Sta rt: October 27, 2024 Vidhya Byrd NP, [employer]ESS OPERATOR [employer] Other Provider Active Start: October 27, 2024 [...] Active St art: October 27, 2024 Dr. Harriosn Garay MD Other Provider Active S tart: [...] Sta rt: October 27, 2024 Vidhya Byrd [employer]ATOR [employer], [employer] Other Provider Active Start: October 27, 2024 Oriana Correia , ISI-C Other Provider Active St art: October 27, [...] Active Star t: October 28, 2024 Dr. oGran Bowens DO Other Provider Active Start : [...] rt: October 28, 2024 Vidhya Byrd NP, [employer]ATOR [employer] Other Provider Active Start: October 28, 2024 [...] art: October 28, 2024 Dr. Jose Bergeron , Other Provider Active Start: October 28, 2024 Dr. Herb Kim MD Other Provider Active Start: October 28, 2024 Dr. Jacky Blackwood MD Other Provider Active Star t: October 28, 2024 Dr. Nancy Wang MD Other Provider Active Start: October 28, 2024 Dr. Elaine Duenas MD Other Provider Active Sta rt: October 28, 2024 Vidhya Byrd [employer], [employer] Other Provider Active Start: October 28, 2024 Oriana Correia NP-C Other Provider Active St art: October 28, 2024 Dr. Khai Bose MD Other Provider Active Sta rt: October 28, 2024 Team Status: Active Member Role/Relationship Status Dates Dr. Dipak Aguilar DO Primary Care Provider Active Start: October 29, 2024 Aikra Blanco MD Emergency Provider Active Star t: [...] rt: October 29, 2024 Vidhya Byrd NP, [employer]ATOR [employer] Other Provider Active Start: October 29, 2024 [...] , Primary Care Provider Active Start: October 29, [...] rt: October 29, 2024 Vidhya Byrd NP, [employer] Other Provider Active Start: October 29, 2024 Oriana Correia NP-C Other Provider Active St art: October 29, 2024 Dr. Khai Bose MD Other Provider Active Sta rt: October 29, 2024 Kylee FLOYD PA-C Attending Provider Active Start: October 29, 2024 [...] Sta rt: October 30, 2024 Vidhya Byrd [employer], [employer]ATOR [employer] Other Provider Active Start: October 30, 2024 Oriana Correia , ISI-C Other Provider Active St art: October 30, 2024 Dr. Khai Bose MD Other Provider Active Sta rt: October 30, 2024 Dr. Gerard Asencio MD Other Provider Active Start: October 30, 2024 Kylee FLOYD, PA-C Attending Provider Active Start: October 30, [...] Sta rt: October 30, 2024 Vidhya Byrd [employer], [employer]ATOR [employer] Other Provider Active Start: October 30, 2024 [...] Active Start: October 30, 2024 Dr. Camilo lAva MD Other Provider Active Start : October [...] rt: October 30, 2024 Vidhya Byrd NP, [employer] Other Provider Active Start: October 30, 2024 [...] rt: October 30, 2024 Vidhya Byrd NP, [employer] Other Provider Active Start: October 30, 2024 [...] t: October 31, 2024 Dr. Lalo Alcaraz , Other Provider Active St art: October 31, [...] rt: October 31, 2024 Vidhya Byrd NP, [employer] Other Provider Active Start: October 31, 2024 Oriana Correia [employer] Other Provider Active St art: October 31, [...] rt: October 31, 2024 Vidhya Byrd NP, [employer] Other Provider Active Start: October 31, 2024 [...] , Primary Care Provider Active Start: October 31, [...] t: October 31, 2024 Dr. Lalo Alcaraz , Other Provider Active St art: October 31, 2024 Dr. Teresa Johnson MD Other Provider Active Start: October 31, 2024 Dr. Ariana Dietrich MD Other Provider Active St art: October 31, 2024 Dr. Jose Bergeron , Other Provider Active Start: October 31, 2024 Dr. Herb Kim MD Other Provider Active Start: October 31, 2024 Dr. Jacky Blackwood MD Other Provider Active Star t: October 31, 2024 Dr. Nancy Wang MD Other Provider Active Start: October 31, 2024 Dr. Elaine Duenas MD Other Provider Active Sta rt: October 31, 2024 Vidhya Byrd NP, [employer]ATOR [employer] Other Provider Active Start: October 31, 2024 [...] rt: October 31, 2024 Vidhya Byrd NP, [employer] Other Provider Active Start: October 31, 2024 Oriana Correia NP-C Other Provider Active St art: October 31, 2024 Dr. Khai Bose MD Other Provider Active Sta rt: October 31, 2024 Dr. Gerard Asencio MD Other Provider Active Start: October 31, 2024 Airam Gottlieb NP-C Attending Provider Active Start: October STUART Leslie Other Provider Active Start: October Dr. Ceec Bella MD Other Provider Active St art: [...] Active S tart: November 03, 2024 Dr. Genai Scott DO Other Provider Active Start : [...] Provider Active Start : November 06, 2024 Team Status: Active Member Role/Relationship Status Dates Dr. Dipak Aguilar DO Primary care physician Active Team Status: Inactive Member Role/Relationship Status Dates Dr. Dipak Aguilar DO Primary care physician Active Start: September 11, 2024 End: September 11, 2024 Dr. Sukhdev Mark MD Attending physician Active St art: September 11, 2024 End: September 11, 2024 Dr. Sukhdev Mark MD Emergency Department Physician Acti ve Start: September 11, 2024 End: September 11, 2024 Team Status: Inactive Member Role/Relationship Status Dates Dr. Dipak Aguilar DO Primary care physician Active Start: October 14, 2024 End: October 14, 2024 Dr. Abdelrahman Keller MD Attending physician Active Start: October 14, 2024 End: October 14, 2024 Dr. Abdelrahman Keller MD Emergency Depart ment Physician Active Start: October 14, 2024 End: October 14, 2024 Team Status: Inactive Member Role/Relationship Status Dates Dr. Dipak Aguilar DO Primary care physician Active Start: October 26, 2024 End: November 06, 2024 Akira Blanco MD Emergency Department Physician Active Start: October 26, 2024 End: November 06, 2024 Dr. Fernanda Triplett MD Admitting physician Active Start: October 26, 2024 End: November 06, 2024 Dr. Fernanda Triplett MD Nurse Practitioner Active Start: October 26, 2024 End: November 06, 2024 Dr. Khai Bose MD Nurse Practitioner Active Start: October 26, 2024 End: November 06, 2024 Dr. Cece Bella MD Nurse Practitioner Active Start: October 26, 2024 End: November 06, 2024 Dr. Kenn Cavazos MD Nurse Practitioner Active Start: October 26, 2024 End: November 06, 2024 Dr. Junito Knowles MD Nurse Practitioner Active Start: October 26, 2024 End: November 06, 2024 Dr. Gerard Asencio MD Nurse Practitioner Active Start: October End: November 06, 2024 Dr. Ilan Contreras MD Attending physician Active Start: October 26, 2024 End: November 06, 2024 Dr. Genia Scott DO Nurse Practitioner Active S tart: October 26, 2024 End: November 06, 2024 Team Status: Active Member Role/Relationship Status Dates Dr. Dipak Aguilar DO Primary care physician Active Start: October 27, 2024 Akira Blanco MD Emergency Department Physician Active Start: October 27, 2024 Dr. Fernanda Triplett MD Admitting physician Active Start: October 27, 2024 Dr. Fernanda Triplett MD Nurse Practitioner Active Start: October 27, 2024 Dr. Kenn Cavazos MD Nurse Practitioner Active Start: October 27, 2024 Dr. Blake Pinzon MD Nurse Practitioner Active Start: October 27, 2024 Dr. Woo Rehman MD Nurse Practitioner Active Sta rt: October 27, 2024 Dr. Shahriar Pressley MD Nurse Practitioner Active Start: October 27, 2024 Dr. Goarn Bowens , Nurse Practitioner Active S tart: October 27, 2024 Dr. Ilan Oliver MD Nurse Practitioner Active Start: October 27, 2024 Dr. Evert Colby MD Nurse Practitioner Active Start: October 27, 2024 Dr. Harrison Garay MD Nurse Practitioner Active Start: October 27, 2024 Dr. Antonette Angeles MD Nurse Practitioner Active Start: October Dr. Camilo Alva MD Nurse Practitioner Active S tart: October 27, 2024 Dr. Héctor Neri MD Nurse Practitioner Active St art: October 27, 2024 Dr. Ameya Smith MD Nurse Practitioner Active S tart: October 27, 2024 Dr. Beronica Cespedes MD Nurse Practitioner Active Start: October 27, 2024 Dr. Cata Bustillo MD Nurse Practitioner Active Start: October 27, 2024 Dr. Stephanie Tariq MD Nurse Practitioner Active Start: October 27, 2024 Dr. Jesus Zabala MD Nurse Practitioner Active Start: October 27, 2024 Dr. Jackson Marcum MD Nurse Practitioner Active Start: October 27, 2024 Dr. Robi Romero MD Nurse Practitioner Active Start: October 27, 2024 Dr. Lalo Alcaraz , Nurse Practitioner Active Start: October 27, 2024 Dr. Teresa Johnson MD Nurse Practitioner Active St art: October 27, 2024 Dr. Ariana Dietrich MD Nurse Practitioner Active Start: October 27, 2024 Dr. Jose Bergeron , Nurse Practitioner Active Start: October 27, 2024 Dr. Herb Kim MD Nurse Practitioner Active Start: October 27, 2024 Dr. Jacky Blackwood MD Nurse Practitioner Active Start: October 27, 2024 Dr. Nancy Wang MD Nurse Practitioner Active Start: October Dr. Elaine Duenas MD Nurse Practitioner Active Start: October 27, 2024 Vidhya Byrd NP, PRESS OPERATOR [employer] Nurse Practitioner Active Start: October 27, 2024 Oriana Correia NP-C Nurse Practitioner Active Start: October 27, 2024 Dr. Khai Bose MD Attending physician Active Start: October 27, 2024 Dr. Khai Bose MD Nurse Practitioner Active Start: October 27, 2024 Team Status: Active Member Role/Relationship Status Dates Dr. Dipak Aguilar DO Primary care physician Active Start: October 27, 2024 Dr. Sue Anderson MD Attending physician Active Start: October Team Status: Active Member Role/Relationship Status Dates Dr. Dipak Aguilar DO Primary care physician Active Start: October 27, 2024 Akira Blanco MD Emergency Department Physician Active Start: October 27, 2024 Dr. Fernanda Triplett MD Admitting physician Active Start: October 27, 2024 Dr. Fernanda Triplett MD Nurse Practitioner Active Start: October 27, 2024 Dr. Kenn Cavazos MD Attending physician Active Start: October 27, 2024 Dr. Kenn Cavazos MD Nurse Practitioner Active Start: October 27, 2024 Dr. Blake Pinzon MD Nurse Practitioner Active Start: October 27, 2024 Dr. Woo Rehman MD Nurse Practitioner Active Sta rt: October 27, 2024 Dr. Shahriar Pressley MD Nurse Practitioner Active Start: October 27, 2024 Dr. Goran Bowens DO Nurse Practitioner Active S tart: October 27, 2024 Dr. Ilan Oliver MD Nurse Practitioner Active Start: October 27, 2024 Dr. Evert Colby MD Nurse Practitioner Active Start: October 27, 2024 Dr. Harrison Garay MD Nurse Practitioner Active Start: October 27, 2024 Dr. Antonette Angeles MD Nurse Practitioner Active Start: October Dr. Camilo Alva MD Nurse Practitioner Active S tart: October 27, 2024 Dr. Héctor Neri MD Nurse Practitioner Active St art: October 27, 2024 Dr. Ameya Smith MD Nurse Practitioner Active S tart: October 27, 2024 Dr. Beronica Cespedes MD Nurse Practitioner Active Start: October 27, 2024 Dr. Cata Bustillo MD Nurse Practitioner Active Start: October 27, 2024 Dr. Stephanie Tariq MD Nurse Practitioner Active Start: October 27, 2024 Dr. Jesus Zabala MD Nurse Practitioner Active Start: October 27, 2024 Dr. Jackson Marcum MD Nurse Practitioner Active Start: October 27, 2024 Dr. Robi Romero MD Nurse Practitioner Active Start: October 27, 2024 Dr. Lalo Alcaraz DO Nurse Practitioner Active Start: October 27, 2024 Dr. Teresa Johnson MD Nurse Practitioner Active St art: October 27, 2024 Dr. Ariana Dietrich MD Nurse Practitioner Active Start: October 27, 2024 Dr. Jose Bergeron DO Nurse Practitioner Active Start: October 27, 2024 Dr. Herb Kim MD Nurse Practitioner Active Start: October 27, 2024 Dr. Jacky Blackwood MD Nurse Practitioner Active Start: October 27, 2024 Dr. Nancy Wang MD Nurse Practitioner Active Start: October Dr. Elaine Duenas MD Nurse Practitioner Active Start: October 27, 2024 Vidhya Byrd PR[employer]ATOR [employer], [employer]ATOR [employer] Nurse Practitioner Active Start: October 27, 2024 Oriana Correia NP-C Nurse Practitioner Active Start: October 27, 2024 Dr. Khai Bose MD Nurse Practitioner Active Start: October 27, 2024 Dr. Ilan Contreras MD Referring Provider Active Start: October 27, 2024 Team Status: Active Member Role/Relationship Status Dates Dr. Dipak Aguilar DO Primary care physician Active Start: October 28, 2024 Akira Blanco MD Emergency Department Physician Active Start: October 28, 2024 Dr. Fernanda Triplett MD Admitting physician Active Start: October 28, 2024 Dr. Fernanda Triplett MD Nurse Practitioner Active Start: October 28, 2024 Dr. Kenn Cavazos MD Nurse Practitioner Active Start: October 28, 2024 Dr. Blake Pinzon MD Nurse Practitioner Active Start: October 28, 2024 Dr. Woo Rehman MD Nurse Practitioner Active Sta rt: October 28, 2024 Dr. Shahriar Pressley MD Nurse Practitioner Active Start: October 28, 2024 Dr. Goran Bowens DO Nurse Practitioner Active S tart: October 28, 2024 Dr. Ilan Oliver MD Nurse Practitioner Active Start: October 28, 2024 Dr. Evert Colby MD Nurse Practitioner Active Start: October 28, 2024 Dr. Harrison Garay MD Nurse Practitioner Active Start: October 28, 2024 Dr. Antonette Angeles MD Nurse Practitioner Active Start: October Dr. Camilo Alva MD Nurse Practitioner Active S tart: October 28, 2024 Dr. Héctor Neri MD Nurse Practitioner Active St art: October 28, 2024 Dr. Ameya Smith MD Nurse Practitioner Active S tart: October 28, 2024 Dr. Beronica Cespedes MD Nurse Practitioner Active Start: October 28, 2024 Dr. Cata Bustillo MD Nurse Practitioner Active Start: October 28, 2024 Dr. Stephanie Tariq MD Nurse Practitioner Active Start: October 28, 2024 Dr. Jesus Zabala MD Nurse Practitioner Active Start: October 28, 2024 Dr. Jackson Marcum MD Nurse Practitioner Active Start: October 28, 2024 Dr. Robi Romero MD Nurse Practitioner Active Start: October 28, 2024 Dr. Lalo Alcaraz , Nurse Practitioner Active Start: October 28, 2024 Dr. Teresa Johnson MD Nurse Practitioner Active St art: October 28, 2024 Dr. Ariana Dietrich MD Nurse Practitioner Active Start: October 28, 2024 Dr. Jose Bergeron DO Nurse Practitioner Active Start: October 28, 2024 Dr. Herb Kim MD Nurse Practitioner Active Start: October 28, 2024 Dr. Jacky Blackwood MD Nurse Practitioner Active Start: October 28, 2024 Dr. Nancy Wang MD Nurse Practitioner Active Start: October Dr. Elaine Duenas MD Nurse Practitioner Active Start: October 28, 2024 Vidhya Byrd PR[employer]ATOR [employer], [employer]ATOR [employer] Nurse Practitioner Active Start: October 28, 2024 Oriana Correia [employer]ATOR [employer] Nurse Practitioner Active Start: October 28, 2024 Dr. Khai Bose MD Attending physician Active Start: October 28, 2024 Dr. Khai Bose MD Nurse Practitioner Active Start: October 28, 2024 Team Status: Active Member Role/Relationship Status Dates Dr. Dipak Aguilar , Primary care physician Active Start: October 28, 2024 Akira Blanco MD Emergency Department Physician Active Start: October 28, 2024 Dr. Fernanda Triplett MD Admitting physician Active Start: October 28, 2024 Dr. Fernanda Triplett MD Nurse Practitioner Active Start: October 28, 2024 Dr. Kenn Cavazos MD Attending physician Active Start: October 28, 2024 Dr. Kenn Cavazos MD Nurse Practitioner Active Start: October 28, 2024 Dr. Blake Pinzon MD Nurse Practitioner Active Start: October 28, 2024 Dr. Woo Rehman MD Nurse Practitioner Active Sta rt: October 28, 2024 Dr. Shahriar Pressley MD Nurse Practitioner Active Start: October 28, 2024 Dr. Goran Bowens DO Nurse Practitioner Active S tart: October 28, 2024 Dr. Ilan Oliver MD Nurse Practitioner Active Start: October 28, 2024 Dr. Evert Colby MD Nurse Practitioner Active Start: October 28, 2024 Dr. Harrison Garay MD Nurse Practitioner Active Start: October 28, 2024 Dr. Antonette Angeles MD Nurse Practitioner Active Start: October Dr. Camilo Alva MD Nurse Practitioner Active S tart: October 28, 2024 Dr. Héctor Neri MD Nurse Practitioner Active St art: October 28, 2024 Dr. Ameya Smith MD Nurse Practitioner Active S tart: October 28, 2024 Dr. Beronica Cespedes MD Nurse Practitioner Active Start: October 28, 2024 Dr. Cata Bustillo MD Nurse Practitioner Active Start: October 28, 2024 Dr. Stephanie Tariq MD Nurse Practitioner Active Start: October 28, 2024 Dr. Jesus Zabala MD Nurse Practitioner Active Start: October 28, 2024 Dr. Jackson Marcum MD Nurse Practitioner Active Start: October 28, 2024 Dr. Robi Romero MD Nurse Practitioner Active Start: October 28, 2024 Dr. Lalo Alcaraz DO Nurse Practitioner Active Start: October 28, 2024 Dr. Teresa Johnson MD Nurse Practitioner Active St art: October 28, 2024 Dr. Ariana Dietrich MD Nurse Practitioner Active Start: October 28, 2024 Dr. Jose Bergeron DO Nurse Practitioner Active Start: October 28, 2024 Dr. Herb Kim MD Nurse Practitioner Active Start: October 28, 2024 Dr. Jacky Blackwood MD Nurse Practitioner Active Start: October 28, 2024 Dr. Nancy Wang MD Nurse Practitioner Active Start: October Dr. Elaine Duenas MD Nurse Practitioner Active Start: October 28, 2024 Vidhya Byrd NP, [employer] Nurse Practitioner Active Start: October 28, 2024 Oriana Correia [employer] Nurse Practitioner Active Start: October 28, 2024 Dr. Khai Bose MD Nurse Practitioner Active Start: October 28, 2024 Team Status: Active Member Role/Relationship Status Dates Dr. Dipak Aguilar DO Primary care physician Active Start: October 28, 2024 Dr. Cece Bella MD Attending physician Active Start: October 28, 2024 Dr. Khai Bose MD Referring Provider Active Start: October 28, 2024 Team Status: Active Member Role/Relationship Status Dates Dr. Dipak Aguilar DO Primary care physician Active Start: October 29, 2024 Akira Blanco MD Emergency Department Physician Active Start: October 29, 2024 Dr. Fernanda Triplett MD Admitting physician Active Start: October 29, 2024 Dr. Fernanda Triplett MD Nurse Practitioner Active Start: October 29, 2024 Dr. Kenn Cavazos MD Nurse Practitioner Active Start: October 29, 2024 Dr. Blake Pinzon MD Nurse Practitioner Active Start: October 29, 2024 Dr. Woo Rehman MD Nurse Practitioner Active Sta rt: October 29, 2024 Dr. Shahriar Pressley MD Nurse Practitioner Active Start: October 29, 2024 Dr. Goran Bowens DO Nurse Practitioner Active S tart: October 29, 2024 Dr. Ilan Olvier MD Nurse Practitioner Active Start: October 29, 2024 Dr. Evert Colby MD Nurse Practitioner Active Start: October 29, 2024 Dr. Harrison Garay MD Nurse Practitioner Active Start: October 29, 2024 Dr. Antonette Angeles MD Nurse Practitioner Active Start: October Dr. Camilo Alva MD Nurse Practitioner Active S tart: October 29, 2024 Dr. Héctor Neri MD Nurse Practitioner Active St art: October 29, 2024 Dr. Ameya Smith MD Nurse Practitioner Active S tart: October 29, 2024 Dr. Beronica Cespedes MD Nurse Practitioner Active Start: October 29, 2024 Dr. Cata Bustillo MD Nurse Practitioner Active Start: October 29, 2024 Dr. Stephanie Tariq MD Nurse Practitioner Active Start: October 29, 2024 Dr. Jesus Zabala MD Nurse Practitioner Active Start: October 29, 2024 Dr. Jackson Marcum MD Nurse Practitioner Active Start: October 29, 2024 Dr. Robi Romero MD Nurse Practitioner Active Start: October 29, 2024 Dr. Lalo Alcaraz DO Nurse Practitioner Active Start: October 29, 2024 Dr. Teresa Johnson MD Nurse Practitioner Active St art: October 29, 2024 Dr. Ariana Dietrich MD Nurse Practitioner Active Start: October 29, 2024 Dr. Jose Bergeron DO Nurse Practitioner Active Start: October 29, 2024 Dr. Herb Kim MD Nurse Practitioner Active Start: October 29, 2024 Dr. Jacky Blackwood MD Nurse Practitioner Active Start: October 29, 2024 Dr. Nancy Wang MD Nurse Practitioner Active Start: October Dr. Elaine Duenas MD Nurse Practitioner Active Start: October 29, 2024 Vidhya Byrd NP, [employer]ESS OPERATOR [employer] [facility] Nurse Practitioner Active Start: October 29, 2024 Oriana Correia NP-C Nurse Practitioner Active Start: October 29, 2024 Dr. Khai Bose MD Attending physician Active Start: October 29, 2024 Dr. Khai Bose MD Nurse Practitioner Active Start: October 29, 2024 Dr. Gerard Asencio MD Nurse Practitioner Active Start: October 29, 2024 Team Status: Active Member Role/Relationship Status Dates Dr. Dipak Aguilar DO Primary care physician Active Start: October 29, 2024 Akira Blanco MD Emergency Department Physician Active Start: October 29, 2024 Dr. Fernanda Triplett MD Admitting physician Active Start: October 29, 2024 Dr. Fernanda Triplett MD Nurse Practitioner Active Start: October 29, 2024 Dr. Kenn Cavazos MD Attending physician Active Start: October 29, 2024 Dr. Kenn Cavazos MD Nurse Practitioner Active Start: October 29, 2024 Dr. Blake Pinzon MD Nurse Practitioner Active Start: October 29, 2024 Dr. Woo Rehman MD Nurse Practitioner Active Sta rt: October 29, 2024 Dr. Shahriar Pressley MD Nurse Practitioner Active Start: October 29, 2024 Dr. Goran Bowens , Nurse Practitioner Active S tart: October 29, 2024 Dr. Ilan Oliver MD Nurse Practitioner Active Start: October 29, 2024 Dr. Evert Colby MD Nurse Practitioner Active Start: October 29, 2024 Dr. Harrison Garay MD Nurse Practitioner Active Start: October 29, 2024 Dr. Antonette Angeles MD Nurse Practitioner Active Start: October Dr. Camilo Alva MD Nurse Practitioner Active S tart: October 29, 2024 Dr. Héctor Neri MD Nurse Practitioner Active St art: October 29, 2024 Dr. Ameya Smith MD Nurse Practitioner Active S tart: October 29, 2024 Dr. Beronica Cespedes MD Nurse Practitioner Active Start: October 29, 2024 Dr. Cata Bustillo MD Nurse Practitioner Active Start: October 29, 2024 Dr. Stephanie Tariq MD Nurse Practitioner Active Start: October 29, 2024 Dr. Jesus Zabala MD Nurse Practitioner Active Start: October 29, 2024 Dr. Jackson Marcum MD Nurse Practitioner Active Start: October 29, 2024 Dr. Robi Romero MD Nurse Practitioner Active Start: October 29, 2024 Dr. Lalo Alcaraz , Nurse Practitioner Active Start: October 29, 2024 Dr. Teresa Johnson MD Nurse Practitioner Active St art: October 29, 2024 Dr. Ariana Dietrich MD Nurse Practitioner Active Start: October 29, 2024 Dr. Jose Bergeron , Nurse Practitioner Active Start: October 29, 2024 Dr. Herb Kim MD Nurse Practitioner Active Start: October 29, 2024 Dr. Jacky Blackwood MD Nurse Practitioner Active Start: October 29, 2024 Dr. Nancy Wang MD Nurse Practitioner Active Start: October Dr. Elaine Duenas MD Nurse Practitioner Active Start: October 29, 2024 Vidhya Byrd NP, [employer] Nurse Practitioner Active Start: October 29, 2024 Oriana Correia NP-C Nurse Practitioner Active Start: October 29, 2024 Dr. Khai Bose MD Nurse Practitioner Active Start: October 29, 2024 Team Status: Active Member Role/Relationship Status Dates Dr. Dipak Aguilar , Primary care physician Active Start: October 30, 2024 Akira Blanco MD Emergency Department Physician Active Start: October 30, 2024 Dr. Fernanda Triplett MD Admitting physician Active Start: October 30, 2024 Dr. Fernanda Triplett MD Nurse Practitioner Active Start: October 30, 2024 Dr. Kenn Cavazos MD Nurse Practitioner Active Start: October 30, 2024 Dr. Blake Pinzon MD Nurse Practitioner Active Start: October 30, 2024 Dr. Woo Rehman MD Nurse Practitioner Active Sta rt: October 30, 2024 Dr. Shahriar Pressley MD Nurse Practitioner Active Start: October 30, 2024 Dr. Goran Bowens , Nurse Practitioner Active S tart: October 30, 2024 Dr. Ilan Oliver MD Nurse Practitioner Active Start: October 30, 2024 Dr. Evert Colby MD Nurse Practitioner Active Start: October 30, 2024 Dr. Harrison Garay MD Nurse Practitioner Active Start: October 30, 2024 Dr. Antonette Angeles MD Nurse Practitioner Active Start: October Dr. Camilo Alva MD Nurse Practitioner Active S tart: October 30, 2024 Dr. Héctor Neri MD Nurse Practitioner Active St art: October 30, 2024 Dr. Ameya Smith MD Nurse Practitioner Active S tart: October 30, 2024 Dr. Beronica Cespedes MD Nurse Practitioner Active Start: October 30, 2024 Dr. Caat Bustillo MD Nurse Practitioner Active Start: October 30, 2024 Dr. Stephanie Tariq MD Nurse Practitioner Active Start: October 30, 2024 Dr. Jesus Zabala MD Nurse Practitioner Active Start: October 30, 2024 Dr. Jackson Marcum MD Nurse Practitioner Active Start: October 30, 2024 Dr. Robi Romero MD Nurse Practitioner Active Start: October 30, 2024 Dr. Lalo Alcaraz DO Nurse Practitioner Active Start: October 30, 2024 Dr. Teresa Johnson MD Nurse Practitioner Active St art: October 30, 2024 Dr. Ariana Dietrich MD Nurse Practitioner Active Start: October 30, 2024 Dr. Jose Bergeron DO Nurse Practitioner Active Start: October 30, 2024 Dr. Herb Kim MD Nurse Practitioner Active Start: October 30, 2024 Dr. Jacky Blackwood MD Nurse Practitioner Active Start: October 30, 2024 Dr. Nancy Wang MD Nurse Practitioner Active Start: October Dr. Elaine Duenas MD Nurse Practitioner Active Start: October 30, 2024 Vidhya Byrd [employer], [employer] Nurse Practitioner Active Start: October 30, 2024 Oriana Correia [employer] Nurse Practitioner Active Start: October 30, 2024 Dr. Khai Bose MD Nurse Practitioner Active Start: October 30, 2024 Dr. Gerard Asencio MD Nurse Practitioner Active Start: October 30, 2024 Kylee Rodriguez PA, PA-C Attending physician Active Start: October 30, 2024 Team Status: Active Member Role/Relationship Status Dates Dr. Dipak Aguilar DO Primary care physician Active Start: October 30, 2024 Akira Blanco MD Emergency Department Physician Active Start: October 30, 2024 Dr. Fernanda Triplett MD Admitting physician Active Start: October 30, 2024 Dr. Fernanda Triplett MD Nurse Practitioner Active Start: October 30, 2024 Dr. Kenn Cavazos MD Nurse Practitioner Active Start: October 30, 2024 Dr. Blake Pinzon MD Nurse Practitioner Active Start: October 30, 2024 Dr. Woo Rehman MD Nurse Practitioner Active Sta rt: October 30, 2024 Dr. Shahriar Pressley MD Nurse Practitioner Active Start: October 30, 2024 Dr. Goran Bowens DO Attending physician Active Start: October 30, 2024 Dr. Goran Bowens DO Nurse Practitioner Active S tart: October 30, 2024 Dr. Ilan Oliver MD Nurse Practitioner Active Start: October 30, 2024 Dr. Evert Colby MD Nurse Practitioner Active Start: October 30, 2024 Dr. Harrison Garay MD Nurse Practitioner Active Start: October 30, 2024 Dr. Antonette Angeles MD Nurse Practitioner Active Start: October Dr. Camilo Alva MD Nurse Practitioner Active S tart: October 30, 2024 Dr. éHctor Neri MD Nurse Practitioner Active St art: October 30, 2024 Dr. Ameya Smith MD Nurse Practitioner Active S tart: October 30, 2024 Dr. Beronica Cespedes MD Nurse Practitioner Active Start: October 30, 2024 Dr. Cata Bustillo MD Nurse Practitioner Active Start: October 30, 2024 Dr. Stephanie Tariq MD Nurse Practitioner Active Start: October 30, 2024 Dr. Jesus Zabala MD Nurse Practitioner Active Start: October 30, 2024 Dr. Jackson Marcum MD Nurse Practitioner Active Start: October 30, 2024 Dr. Robi Romero MD Nurse Practitioner Active Start: October 30, 2024 Dr. Lalo Alcaraz DO Nurse Practitioner Active Start: October 30, 2024 Dr. Teresa Johnson MD Nurse Practitioner Active St art: October 30, 2024 Dr. Ariana Dietrich MD Nurse Practitioner Active Start: October 30, 2024 Dr. Jose Bergeron DO Nurse Practitioner Active Start: October 30, 2024 Dr. Herb Kim MD Nurse Practitioner Active Start: October 30, 2024 Dr. Jacky Blackwood MD Nurse Practitioner Active Start: October 30, 2024 Dr. Nancy Wang MD Nurse Practitioner Active Start: October Dr. Elaine Duenas MD Nurse Practitioner Active Start: October 30, 2024 Vidhya Byrd NP, [employer] Nurse Practitioner Active Start: October 30, 2024 Oriana Correia NP-C Nurse Practitioner Active Start: October 30, 2024 Dr. Khai Bose MD Referring Provider Active Start: October 30, 2024 Dr. Khai Bose MD Nurse Practitioner Active Start: October 30, 2024 Dr. Gerard Asencio MD Nurse Practitioner Active Start: October 30, 2024 Team Status: Active Member Role/Relationship Status Dates Dr. Dipak Aguilar , Primary care physician Active Start: October 30, 2024 Akira Blanco MD Emergency Department Physician Active Start: October 30, 2024 Dr. Fernanda Triplett MD Admitting physician Active Start: October 30, 2024 Dr. Fernanda Triplett MD Nurse Practitioner Active Start: October 30, 2024 Dr. Kenn Cavazos MD Nurse Practitioner Active Start: October 30, 2024 Dr. Blake Pinzon MD Nurse Practitioner Active Start: October 30, 2024 Dr. Woo Rehman MD Nurse Practitioner Active Sta rt: October 30, 2024 Dr. Shahriar Pressley MD Nurse Practitioner Active Start: October 30, 2024 Dr. Goran Bowens , Nurse Practitioner Active S tart: October 30, 2024 Dr. Ilan lOiver MD Nurse Practitioner Active Start: October 30, 2024 Dr. Evert Colby MD Nurse Practitioner Active Start: October 30, 2024 Dr. Harrison Garay MD Nurse Practitioner Active Start: October 30, 2024 Dr. Antonette Angeles MD Nurse Practitioner Active Start: October Dr. Camilo Alva MD Nurse Practitioner Active S tart: October 30, 2024 Dr. Héctor Neri MD Nurse Practitioner Active St art: October 30, 2024 Dr. Ameya Smith MD Nurse Practitioner Active S tart: October 30, 2024 Dr. Beronica Cespedes MD Nurse Practitioner Active Start: October 30, 2024 Dr. Cata Bustillo MD Nurse Practitioner Active Start: October 30, 2024 Dr. Stephanie Tariq MD Nurse Practitioner Active Start: October 30, 2024 Dr. Jesus Zabala MD Nurse Practitioner Active Start: October 30, 2024 Dr. Jackson Marcum MD Nurse Practitioner Active Start: October 30, 2024 Dr. Robi Romero MD Nurse Practitioner Active Start: October 30, 2024 Dr. Lalo Alcaraz , Nurse Practitioner Active Start: October 30, 2024 Dr. Teresa Johnson MD Nurse Practitioner Active St art: October 30, 2024 Dr. Ariana Dietrich MD Nurse Practitioner Active Start: October 30, 2024 Dr. Jose Bergeron , Nurse Practitioner Active Start: October 30, 2024 Dr. Herb Kim MD Nurse Practitioner Active Start: October 30, 2024 Dr. Jacky Blackwood MD Nurse Practitioner Active Start: October 30, 2024 Dr. Nancy Wang MD Nurse Practitioner Active Start: October Dr. Elaine Duenas MD Nurse Practitioner Active Start: October 30, 2024 Vidhya Byrd [employer], [employer] Nurse Practitioner Active Start: October 30, 2024 Oriana Correia [employer] Nurse Practitioner Active Start: October 30, 2024 Dr. Khai Bose MD Attending physician Active Start: October 30, 2024 Dr. Khai Bose MD Nurse Practitioner Active Start: October 30, 2024 Dr. Gerard Asencio MD Nurse Practitioner Active Start: October 30, 2024 Team Status: Active Member Role/Relationship Status Dates Dr. Dipak Aguilar , Primary care physician Active Start: October 30, 2024 Akira Blanco MD Emergency Department Physician Active Start: October 30, 2024 Dr. Fernanda Triplett MD Admitting physician Active Start: October 30, 2024 Dr. Fernanda Triplett MD Nurse Practitioner Active Start: October 30, 2024 Dr. Kenn Cavazos MD Nurse Practitioner Active Start: October 30, 2024 Dr. Blake Pinzon MD Nurse Practitioner Active Start: October 30, 2024 Dr. Woo Rehman MD Nurse Practitioner Active Sta rt: October 30, 2024 Dr. Shahriar Pressley MD Nurse Practitioner Active Start: October 30, 2024 Dr. Goran Bowens DO Nurse Practitioner Active S tart: October 30, 2024 Dr. Ilan Oliver MD Nurse Practitioner Active Start: October 30, 2024 Dr. Evert Colby MD Nurse Practitioner Active Start: October 30, 2024 Dr. Harrison Garay MD Nurse Practitioner Active Start: October 30, 2024 Dr. Antonette Angeles MD Nurse Practitioner Active Start: October Dr. Camilo Alva MD Nurse Practitioner Active S tart: October 30, 2024 Dr. Héctor Neri MD Nurse Practitioner Active St art: October 30, 2024 Dr. Ameya Smith MD Nurse Practitioner Active S tart: October 30, 2024 Dr. Beronica Cespedes MD Nurse Practitioner Active Start: October 30, 2024 Dr. Cata Bustillo MD Nurse Practitioner Active Start: October 30, 2024 Dr. Stephanie Tariq MD Nurse Practitioner Active Start: October 30, 2024 Dr. Jesus Zabala MD Nurse Practitioner Active Start: October 30, 2024 Dr. Jackson Marcum MD Nurse Practitioner Active Start: October 30, 2024 Dr. Robi Romero MD Nurse Practitioner Active Start: October 30, 2024 Dr. Lalo Alcaraz DO Nurse Practitioner Active Start: October 30, 2024 Dr. Teresa Johnson MD Nurse Practitioner Active St art: October 30, 2024 Dr. Ariana Dietrich MD Nurse Practitioner Active Start: October 30, 2024 Dr. Jose Bergeron DO Nurse Practitioner Active Start: October 30, 2024 Dr. Herb Kim MD Nurse Practitioner Active Start: October 30, 2024 Dr. Jacky Blackwood MD Nurse Practitioner Active Start: October 30, 2024 Dr. Nancy Wang MD Nurse Practitioner Active Start: October Dr. Elaine Duenas MD Nurse Practitioner Active Start: October 30, 2024 Vidhya Byrd NP, [employer] Nurse Practitioner Active Start: October 30, 2024 Oriana Correia NP-C Nurse Practitioner Active Start: October 30, 2024 Dr. Khai Bose MD Nurse Practitioner Active Start: October 30, 2024 Dr. Gerard Asencio MD Nurse Practitioner Active Start: October 30, 2024 Airam Gottlieb NP-C Attending physician Active Start: October Airam Gottlieb NP-C Nurse Practitioner Active Start: October Team Status: Active Member Role/Relationship Status Dates Dr. Dipak Aguilar DO Primary care physician Active Start: October 31, 2024 Akira Blanco MD Emergency Department Physician Active Start: October 31, 2024 Dr. Fernanda Triplett MD Admitting physician Active Start: October 31, 2024 Dr. Fernanda Triplett MD Nurse Practitioner Active Start: October 31, 2024 Dr. Kenn Cavazos MD Nurse Practitioner Active Start: October 31, 2024 Dr. Blake Pinzon MD Nurse Practitioner Active Start: October 31, 2024 Dr. Woo Rehman MD Nurse Practitioner Active Sta rt: October 31, 2024 Dr. Shahriar Pressley MD Nurse Practitioner Active Start: October 31, 2024 Dr. Goran Bowens , Nurse Practitioner Active S tart: October 31, 2024 Dr. Ilan Oliver MD Nurse Practitioner Active Start: October 31, 2024 Dr. Evert Colby MD Nurse Practitioner Active Start: October 31, 2024 Dr. Harrison Garay MD Nurse Practitioner Active Start: October 31, 2024 Dr. Antonette Angeles MD Nurse Practitioner Active Start: October Dr. Camilo Alva MD Nurse Practitioner Active S tart: October 31, 2024 Dr. Héctor Neri MD Nurse Practitioner Active St art: October 31, 2024 Dr. Ameya Smith MD Nurse Practitioner Active S tart: October 31, 2024 Dr. Beronica Cespedes MD Nurse Practitioner Active Start: October 31, 2024 Dr. Cata Bustillo MD Nurse Practitioner Active Start: October 31, 2024 Dr. Stephanie Tariq MD Nurse Practitioner Active Start: October 31, 2024 Dr. Jesus Zabala MD Nurse Practitioner Active Start: October 31, 2024 Dr. Jackson Marcum MD Nurse Practitioner Active Start: October 31, 2024 Dr. Robi Romero MD Nurse Practitioner Active Start: October 31, 2024 Dr. Lalo Alcaraz , Nurse Practitioner Active Start: October 31, 2024 Dr. Teresa Johnson MD Nurse Practitioner Active St art: October 31, 2024 Dr. Ariana Dietrich MD Nurse Practitioner Active Start: October 31, 2024 Dr. Jose Bergeron DO Nurse Practitioner Active Start: October 31, 2024 Dr. Herb Kim MD Nurse Practitioner Active Start: October 31, 2024 Dr. Jacky Blackwood MD Nurse Practitioner Active Start: October 31, 2024 Dr. Nancy Wang MD Nurse Practitioner Active Start: October Dr. Elaine Duenas MD Nurse Practitioner Active Start: October 31, 2024 Vidhya Byrd NP, [employer] Nurse Practitioner Active Start: October 31, 2024 Oriana M Rufener , [employer] Nurse Practitioner Active Start: October 31, 2024 Dr. Khai Bose MD Attending physician Active Start: October 31, 2024 Dr. Khai Bose MD Nurse Practitioner Active Start: October 31, 2024 Dr. Gerard Asencio MD Nurse Practitioner Active Start: October 31, 2024 Airam Gottlieb [employer] Nurse Practitioner Active Start: October Dr. Cece Bella MD Nurse Practitioner Active Start: October 31, 2024 Dr. Junito Knowles MD Nurse Practitioner Active Start: October 31, 2024 Team Status: Active Member Role/Relationship Status Dates Dr. Dipak Aguilar , Primary care physician Active Start: October 31, 2024 Akira Blanco MD Emergency Department Physician Active Start: October 31, 2024 Dr. Fernanda Triplett MD Admitting physician Active Start: October 31, 2024 Dr. Fernanda Triplett MD Nurse Practitioner Active Start: October 31, 2024 Dr. Kenn Cavazos MD Nurse Practitioner Active Start: October 31, 2024 Dr. Blake Pinzon MD Nurse Practitioner Active Start: October 31, 2024 Dr. Woo Rehman MD Nurse Practitioner Active Sta rt: October 31, 2024 Dr. Shahriar Pressley MD Nurse Practitioner Active Start: October 31, 2024 Dr. Goran Bowens DO Nurse Practitioner Active S tart: October 31, 2024 Dr. Ilan Oliver MD Nurse Practitioner Active Start: October 31, 2024 Dr. Evert Colby MD Nurse Practitioner Active Start: October 31, 2024 Dr. Harrison Garay MD Nurse Practitioner Active Start: October 31, 2024 Dr. Antonette Angeles MD Nurse Practitioner Active Start: October Dr. Camilo Alva MD Nurse Practitioner Active S tart: October 31, 2024 Dr. Héctor Neri MD Nurse Practitioner Active St art: October 31, 2024 Dr. Ameya Smith MD Nurse Practitioner Active S tart: October 31, 2024 Dr. Beronica Cespedes MD Nurse Practitioner Active Start: October 31, 2024 Dr. Cata Bustillo MD Nurse Practitioner Active Start: October 31, 2024 Dr. Stephanie Tariq MD Nurse Practitioner Active Start: October 31, 2024 Dr. Jesus Zabala MD Nurse Practitioner Active Start: October 31, 2024 Dr. Jackson Marcum MD Nurse Practitioner Active Start: October 31, 2024 Dr. Robi Romero MD Nurse Practitioner Active Start: October 31, 2024 Dr. Lalo Alcaraz , Nurse Practitioner Active Start: October 31, 2024 Dr. Teresa Johnson MD Nurse Practitioner Active St art: October 31, 2024 Dr. Ariana Dietrich MD Nurse Practitioner Active Start: October 31, 2024 Dr. Jose Bergeron , Nurse Practitioner Active Start: October 31, 2024 Dr. Herb Kim MD Nurse Practitioner Active Start: October 31, 2024 Dr. Jacky Blackwood MD Nurse Practitioner Active Start: October 31, 2024 Dr. Nancy Wang MD Nurse Practitioner Active Start: October Dr. Elaine Duenas MD Nurse Practitioner Active Start: October 31, 2024 Vidhya Byrd NP, [employer] Nurse Practitioner Active Start: October 31, 2024 Oriana Correia [employer] Nurse Practitioner Active Start: October 31, 2024 Dr. Khai Bose MD Nurse Practitioner Active Start: October 31, 2024 Dr. Gerard Asencio MD Nurse Practitioner Active Start: October 31, 2024 Airam Gottlieb [employer] Nurse Practitioner Active Start: October Dr. Cece Bella MD Nurse Practitioner Active Start: October 31, 2024 Dr. Junito Knowles MD Nurse Practitioner Active Start: October 31, 2024 Kylee FLOYD, PA-C Attending physician Active Start: October 31, 2024 Team Status: Active Member Role/Relationship Status Dates Dr. Dipak Aguilar DO Primary care physician Active Start: October 31, 2024 Akira Blanco MD Emergency Department Physician Active Start: October 31, 2024 Dr. Fernanda Triplett MD Admitting physician Active Start: October 31, 2024 Dr. Fernanda Triplett MD Nurse Practitioner Active Start: October 31, 2024 Dr. Kenn Cavazos MD Nurse Practitioner Active Start: October 31, 2024 Dr. Blake Pinzon MD Nurse Practitioner Active Start: October 31, 2024 Dr. Woo Rehman MD Nurse Practitioner Active Sta rt: October 31, 2024 Dr. Shahriar Pressley MD Nurse Practitioner Active Start: October 31, 2024 Dr. Goran Bowens , Nurse Practitioner Active S tart: October 31, 2024 Dr. Ilan Oliver MD Nurse Practitioner Active Start: October 31, 2024 Dr. Evert Colby MD Nurse Practitioner Active Start: October 31, 2024 Dr. Harrison Garay MD Nurse Practitioner Active Start: October 31, 2024 Dr. Antonette Angeles MD Nurse Practitioner Active Start: October Dr. Camilo Alva MD Nurse Practitioner Active S tart: October 31, 2024 Dr. Héctor Neri MD Nurse Practitioner Active St art: October 31, 2024 Dr. Ameya Smith MD Nurse Practitioner Active S tart: October 31, 2024 Dr. Beronica Cespedes MD Nurse Practitioner Active Start: October 31, 2024 Dr. Cata Bustillo MD Nurse Practitioner Active Start: October 31, 2024 Dr. Stephanie Tariq MD Nurse Practitioner Active Start: October 31, 2024 Dr. Jesus Zabala MD Nurse Practitioner Active Start: October 31, 2024 Dr. Jackson Marcum MD Nurse Practitioner Active Start: October 31, 2024 Dr. Robi Romero MD Nurse Practitioner Active Start: October 31, 2024 Dr. Lalo Alcaraz , Nurse Practitioner Active Start: October 31, 2024 Dr. Teresa Johnson MD Nurse Practitioner Active St art: October 31, 2024 Dr. Ariana Dietrich MD Nurse Practitioner Active Start: October 31, 2024 Dr. Jose Bergeron DO Nurse Practitioner Active Start: October 31, 2024 Dr. Herb Kim MD Nurse Practitioner Active Start: October 31, 2024 Dr. Jacky Blackwood MD Nurse Practitioner Active Start: October 31, 2024 Dr. Nancy Wang MD Nurse Practitioner Active Start: October Dr. Elaine Duenas MD Nurse Practitioner Active Start: October 31, 2024 Vidhya Byrd NP, [employer] Nurse Practitioner Active Start: October 31, 2024 Oriana Correia , [employer] Nurse Practitioner Active Start: October 31, 2024 Dr. Khai Bose MD Nurse Practitioner Active Start: October 31, 2024 Dr. Gerard Asencio MD Nurse Practitioner Active Start: October 31, 2024 STUART Leslie Nurse Practitioner Active Start: October Dr. Cece Bella MD Attending physician Active Start: October 31, 2024 Dr. Cece Bella MD Nurse Practitioner Active Start: October 31, 2024 Dr. Junito Knowles MD Nurse Practitioner Active Start: October 31, 2024 Team Status: Active Member Role/Relationship Status Dates Dr. Dipak Aguilar , Primary care physician Active Start: October 31, 2024 Akira Blanco MD Emergency Department Physician Active Start: October 31, 2024 Dr. Fernanda Triplett MD Admitting physician Active Start: October 31, 2024 Dr. Fernanda Triplett MD Nurse Practitioner Active Start: October 31, 2024 Dr. Kenn Cavazos MD Nurse Practitioner Active Start: October 31, 2024 Dr. Blake Pinzon MD Nurse Practitioner Active Start: October 31, 2024 Dr. Woo Rehman MD Nurse Practitioner Active Sta rt: October 31, 2024 Dr. Shahriar Pressley MD Nurse Practitioner Active Start: October 31, 2024 Dr. Goran Bowens DO Nurse Practitioner Active S tart: October 31, 2024 Dr. Ilan Oliver MD Nurse Practitioner Active Start: October 31, 2024 Dr. Evert Colby MD Nurse Practitioner Active Start: October 31, 2024 Dr. Harrison Garay MD Nurse Practitioner Active Start: October 31, 2024 Dr. Antonette Angeles MD Nurse Practitioner Active Start: October Dr. Camilo Alva MD Nurse Practitioner Active S tart: October 31, 2024 Dr. Héctor Neri MD Nurse Practitioner Active St art: October 31, 2024 Dr. Ameya Smith MD Nurse Practitioner Active S tart: October 31, 2024 Dr. Beronica Cespedes MD Nurse Practitioner Active Start: October 31, 2024 Dr. Cata Bustillo MD Nurse Practitioner Active Start: October 31, 2024 Dr. Stephanie Tariq MD Nurse Practitioner Active Start: October 31, 2024 Dr. Jesus Zabala MD Nurse Practitioner Active Start: October 31, 2024 Dr. Jackson Marcum MD Nurse Practitioner Active Start: October 31, 2024 Dr. Robi Romero MD Nurse Practitioner Active Start: October 31, 2024 Dr. Lalo Alcaraz DO Nurse Practitioner Active Start: October 31, 2024 Dr. Teresa Johnson MD Nurse Practitioner Active St art: October 31, 2024 Dr. Ariana Dietrich MD Nurse Practitioner Active Start: October 31, 2024 Dr. Jose Bergeron DO Nurse Practitioner Active Start: October 31, 2024 Dr. Herb iKm MD Nurse Practitioner Active Start: October 31, 2024 Dr. Jacky Blackwood MD Nurse Practitioner Active Start: October 31, 2024 Dr. Nancy Wang MD Nurse Practitioner Active Start: October Dr. Elaine Duenas MD Nurse Practitioner Active Start: October 31, 2024 Vidhya Byrd NP, [employer] Nurse Practitioner Active Start: October 31, 2024 Oriana Correia NP-C Nurse Practitioner Active Start: October 31, 2024 Dr. Khai Bose MD Nurse Practitioner Active Start: October 31, 2024 Dr. Gerard Asencio MD Nurse Practitioner Active Start: October 31, 2024 Airam Gottlieb NP-C Attending physician Active Start: October Airam Gottlieb NP-C Nurse Practitioner Active Start: October Dr. Cece Bella MD Nurse Practitioner Active Start: October 31, 2024 Dr. Junito Knowles MD Nurse Practitioner Active Start: October 31, 2024 Team Status: Active Member Role/Relationship Status Dates Dr. Dipak Aguilar DO Primary care physician Active Start: November 01, 2024 Akira Blanco MD Emergency Department Physician Active Start: November 01, 2024 Dr. Fernanda Triplett MD Admitting physician Active Start: November 01, 2024 Dr. Fernanda Triplett MD Nurse Practitioner Active Start: November 01, 2024 Dr. Kenn Cavazos MD Nurse Practitioner Active Start: November 01, 2024 Dr. Gerard Asencio MD Nurse Practitioner Active Start: October Dr. Cece Bella MD Nurse Practitioner Active Start: November 01, 2024 Dr. Junito Knowles MD Nurse Practitioner Active Start: November 01, 2024 Dr. Genia Scott DO Attending physician Active Start: November 01, 2024 Dr. Genia Scott DO Nurse Practitioner Active S tart: November 01, 2024 Dr. Khai Bose MD Nurse Practitioner Active Start: November 01, 2024 Team Status: Active Member Role/Relationship Status Dates Dr. Dipak Aguilar DO Primary care physician Active Start: November 01, 2024 Akira Blanco MD Emergency Department Physician Active Start: November 01, 2024 Dr. Fernanda Triplett MD Admitting physician Active Start: November 01, 2024 Dr. Fernanda Triplett MD Nurse Practitioner Active Start: November 01, 2024 Dr. Kenn Cavazos MD Nurse Practitioner Active Start: November 01, 2024 Dr. Gerard Asencio MD Nurse Practitioner Active Start: October Dr. Cece Bella MD Nurse Practitioner Active Start: November 01, 2024 Dr. Junito Knowles MD Nurse Practitioner Active Start: November 01, 2024 Dr. Genia Scott DO Nurse Practitioner Active S tart: November 01, 2024 Dr. Khai Bose MD Nurse Practitioner Active Start: November 01, 2024 Kylee FLOYD PAKeithC Attending physician Active Start: November 01, 2024 Team Status: Active Member Role/Relationship Status Dates Dr. Dipak Aguilar DO Primary care physician Active Start: November 02, 2024 Akira Blanco MD Emergency Department Physician Active Start: November 02, 2024 Dr. Fernanda Triplett MD Admitting physician Active Start: November 02, 2024 Dr. Fernanda Triplett MD Nurse Practitioner Active Start: November 02, 2024 Dr. Genia Scott DO Attending physician Active Start: November 02, 2024 Dr. Genia Scott DO Nurse Practitioner Active S tart: November 02, 2024 Dr. Khai Bose MD Nurse Practitioner Active Start: November 02, 2024 Dr. Cece Bella MD Nurse Practitioner Active Start: November 02, 2024 Dr. Kenn Cavazos MD Nurse Practitioner Active Start: November 02, 2024 Dr. Junito Knowles MD Nurse Practitioner Active Start: November 02, 2024 Dr. Gerard Asencio MD Nurse Practitioner Active Start: October Team Status: Active Member Role/Relationship Status Dates Dr. Ryder Leung MD Attending physician Active Start: November 02, 2024 Dr. Genia Scott DO Referring Provider Active S tart: November 02, 2024 Team Status: Active Member Role/Relationship Status Dates Dr. Dipak Aguilar DO Primary care physician Active Start: November 03, 2024 Akira Blanco MD Emergency Department Physician Active Start: November 03, 2024 Dr. Fernanda Triplett MD Admitting physician Active Start: November 03, 2024 Dr. Fernanda Triplett MD Nurse Practitioner Active Start: November 03, 2024 Dr. Genia Scott DO Attending physician Active Start: November 03, 2024 Dr. Genia Scott DO Nurse Practitioner Active S tart: November 03, 2024 Dr. Khai Bose MD Nurse Practitioner Active Start: November 03, 2024 Dr. Cece Bella MD Nurse Practitioner Active Start: November 03, 2024 Dr. Kenn Cavazos MD Nurse Practitioner Active Start: November 03, 2024 Dr. Junito Knowles MD Nurse Practitioner Active Start: November 03, 2024 Dr. Gerard Asencio MD Nurse Practitioner Active Start: October Team Status: Active Member Role/Relationship Status Dates Dr. Dipak Aguilar DO Primary care physician Active Start: November 04, 2024 Akira Blanco MD Emergency Department Physician Active Start: November 04, 2024 Dr. Fernanda Triplett MD Admitting physician Active Start: November 04, 2024 Dr. Fernanda Triplett MD Nurse Practitioner Active Start: November 04, 2024 Dr. Genia Scott DO Attending physician Active Start: November 04, 2024 Dr. Genia Scott DO Nurse Practitioner Active S tart: November 04, 2024 Dr. Khai Bose MD Nurse Practitioner Active Start: November 04, 2024 Dr. Cece Bella MD Nurse Practitioner Active Start: November 04, 2024 Dr. Kenn Cavazos MD Nurse Practitioner Active Start: November 04, 2024 Dr. Junito Knowles MD Nurse Practitioner Active Start: November 04, 2024 Dr. Gerard Asencio MD Nurse Practitioner Active Start: October Team Status: Active Member Role/Relationship Status Dates Dr. Dipak Aguilar DO Primary care physician Active Start: November 05, 2024 Akira Blanco MD Emergency Department Physician Active Start: November 05, 2024 Dr. Fernanda Triplett MD Admitting physician Active Start: November 05, 2024 Dr. Fernanda Triplett MD Nurse Practitioner Active Start: November 05, 2024 Dr. Khai Bose MD Nurse Practitioner Active Start: November 05, 2024 Dr. Cece Bella MD Nurse Practitioner Active Start: November 05, 2024 Dr. Kenn Cavazos MD Nurse Practitioner Active Start: November 05, 2024 Dr. Junito Knowles MD Nurse Practitioner Active Start: November 05, 2024 Dr. Gerard Asencio MD Nurse Practitioner Active Start: October Dr. Ilan Contreras MD Attending physician Active Start: November 05, 2024 Dr. Ilan Contreras MD Nurse Practitioner Active Start: November 05, 2024 Dr. Genia Scott DO Nurse Practitioner Active S tart: November 05, 2024 Team Status: Active Member Role/Relationship Status Dates Dr. Dipak Aguilar DO Primary care physician Active Start: November 06, 2024 Akira Blanco MD Emergency Department Physician Active Start: November 06, 2024 Dr. Fernanda Triplett MD Admitting physician Active Start: November 06, 2024 Dr. Fernanda Triplett MD Nurse Practitioner Active Start: November 06, 2024 Dr. Khai Bose MD Nurse Practitioner Active Start: November 06, 2024 Dr. Cece Bella MD Nurse Practitioner Active Start: November 06, 2024 Dr. Kenn Cavazos MD Nurse Practitioner Active Start: November 06, 2024 Dr. Junito Knowles MD Nurse Practitioner Active Start: November 06, 2024 Dr. Gerard Asencio MD Nurse Practitioner Active Start: October Dr. Ilan Contreras MD Nurse Practitioner Active Start: November 06, 2024 Dr. Genia Scott DO Nurse Practitioner Active S tart: November 06, 2024 Kylee FLOYD PA-C Attending physician Active Start: November 06, 2024 Team Status: Active Member Role/Relationship Status Dates Dr. Dipak Aguilar DO Primary care physician Active Start: November 06, 2024 Akira Blanco MD Emergency Department Physician Active Start: November 06, 2024 Dr. Fernanda Triplett MD Admitting physician Active Start: November 06, 2024 Dr. Fernanda Triplett MD Nurse Practitioner Active Start: November 06, 2024 Dr. Khai Bose MD Nurse Practitioner Active Start: November 06, 2024 Dr. Cece Bella MD Nurse Practitioner Active Start: November 06, 2024 Dr. Kenn Cavazos MD Nurse Practitioner Active Start: November 06, 2024 Dr. Junito Knowles MD Nurse Practitioner Active Start: November 06, 2024 Dr. Gerard Asencio MD Nurse Practitioner Active Start: October Dr. Ilan Contreras MD Attending physician Active Start: November 06, 2024 Dr. Ilan Contreras MD Nurse Practitioner Active Start: November 06, 2024 Dr. Genia Scott DO Nurse Practitioner Active S tart: November 06, 2024 Team Status: Active Member Role/Relationship Status Dates Dr. Dipak Aguilar DO Primary care physician Active Start: November 06, 2024 Dr. Brandon Black MD Admitting physician Active Start: November 06, 2024 Dr. Brandon Black MD Attending physician Active Start: November 06, 2024 Dr. Brandon Black MD Referring Provider Active Start: November 06, 2024 Dr. Gerard Asencio MD Nurse Practitioner Active Start: November 06, 2024 Team Status: Inactive Member Role/Relationship Status Dates Dr. Dipak Aguilar DO Primary care physician Active Start: November 10, 2024 End: November 10, 2024 Dr. Sukhdev Mark MD Attending physician Active St art: November 10, 2024 End: November 10, 2024 Dr. Sukhdev Mark MD Emergency Department Physician Active Start: November 10, 2024 End: November 10, 2024 Team Status: Inactive Member Role/Relationship Status Dates Dr. Dipak Aguilar DO Primary care physician Active Start: November 06, 2024 End: November 22, 2024 Dr. Brandon Black MD Admitting physician Active Start: November 06, 2024 End: November 22, 2024 Dr. Brandon Black MD Attending physician Active Start: November 06, 2024 End: November 22, 2024 Dr. Brandon Black MD Referring Provider Active Start: November 06, 2024 End: November 22, 2024 Dr. Gerard Asencio MD Nurse Practitioner Active Start: November 06, 2024 End: November 22, 2024 Team Status: Inactive Member Role/Relationship Status Dates Dr. Dipak Aguilar DO Primary care physician Active Start: November 23, 2024 End: November 23, 2024 Dr. Dipak Aguilar DO Referring Provider Active Start: November 23, 2024 End: November 23, 2024 Dr. 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 Follow Up 08/05/2022 Reason Comments Catheter Removal Reason Comments CARD Follow Up Annual Reason Comments Medication Problem Reason Comments Urinary Frequency Nocturia Difficulty Urinating Reason Comments requesting a GI referral Reason Onset Date Comments Physical Integration Practitioner - Hospital Follow Up 10/20/2022 Reason Comments [...] Productive cough Procedures LUNG VOLUMES Elisa Garcia, REACHER.AUDIO VISUAL EQUIPMENT RENTAL CLERK [address] [place] [address] [facility] [place] [address] [place] [address] Referral ID Status Reason Start Date Expiration Date V isits Requested Visits Authorized [id number] Closed Auto-Generate d Referral 11/29/2023 12/28/2024 1 1 Specialty Diagnoses / Procedures Referred By Contac t Referred To Contact [facility] Diagnoses Wheezing Asthma-COPD overlap syndrome (HCC) SOB (shortness of breath) on exertion Decreased activity tolerance Productive cough Procedures SPIROMETRY - BASELINE AND POST DILATOR BRNCDILAT RSPSE SPMTRY PRE&POST-BRNCDILAT ADMN Elisa Garcia, REACHER.AUDIO VISUAL EQUIPMENT RENTAL CLERK [address] [place] [address] [facility] [place] [address] [place] [address] Referral ID Status Reason Start Date Expiration Date V isits Requested Visits Authorized [id number] Closed Auto-Generate d Referral 11/29/2023 12/28/2024 [address] Specialty Diagnoses / Procedures Referred By Contac t Referred To Contact CT IMAGING Diagnoses Wheezing Asthma-COPD overlap syndrome (HCC) SOB (shortness of breath) on exertion Decreased activity tolerance Productive cough Procedures CT CHEST WO IVCON DIAGNOSTIC COMPUTED TOMOGRAPHY THORAX W/O CNTRST Elisa Garcia, REACHER.AUDIO VISUAL EQUIPMENT RENTAL CLERK [address] [place] [address] [place] [id number] Referral ID Status Reason Start Date Expiration Date V isits Requested Visits Authorized [id number] Closed Auto-Generate d Referral 11/29/2023 12/28/2024 1 1 Reason Comments Radiology [place] Specialty Diagnoses / Procedures Referred By Contac t Referred To Contact [facility] Diagnoses Shortness of breath Procedures NM CARDIAC PERF STRESS/EXERCISE MYOCARDIAL SPECT MULTIPLE STUDIES Analisa Nicole MD [address] [facility] [place] [address] [facility] [address] [place] [address] Referral ID Status Reason Start Date Expiration Date V isits Requested Visits Authorized [id number] Closed Auto-Generate d Referral 09/26/2023 10/11/2024 1 [...] NEW HIGH MDM 60 MINUTES Radha Berman, NEHA.AUDIO VISUAL EQUIPMENT RENTAL CLERK [address] [place] [address] Phone: tel: fax: Referral ID Status Reason Start Date Expiration Date V isits Requested Visits Authorized [id number] Closed PCP Requested Referral 05/16/2024 05/16/2025 1 [...] BE BASED ON THE PRIMARY CLINICAL RECORDS. [employer] provides no warranty or guarantee of the accuracy or completeness of information in this document.
--- NOTE | 2024-12-16 12:37 | EX.ED.DYSGE1 ---
HPI History of Present Illness Chief Complaint: Lower Extremity Injury Detail of Chief Complaint: Concern for possible DVT right lower extremity Informant: patient, spouse/S.O. and family Onset/Context/Timing Onset: - (Swelling past couple of days with redness right lower extremity, swelling LLE) Context: Sudden Onset Timing: Continuous Quality: Edema bilaterally worse right than left. Location: Cardiovascular and lower extremity Current Severity: Mild Maximum Severity: Moderate Worsened by: Noncompliance with furosemide, Relieved by: Nothing Associated Symptoms Associated Symptoms: Dyspnea, orthopnea, edema right greater than left Narrative Narrative: Patient is an 89-year-old male. He was seen. Encounter was for cardioversion. He is on anticoagulant November 10 for cardioversion. He was on Eliquis and in A-fib. He was successfully cardioverted. He was discharged to home at that time. He presents now because of increased swelling right leg more so than left with erythema and discoloration behind the right knee. He does endorse shortness of breath. He does endorse orthopnea. He denies cough or sputum production. He denies GI or symptoms. He denies chest pain, pressure or tightness. He told his on more than 1 occasion not to answer any questions. She became frustrated and stated she was going a higher professional nurse to care for him. Patient has not been compliant with medication. When asked why he did not have a good answer. He denies chest tightness, pressure, heaviness or pleuritic pain. He has a slight cough which is nonproductive. There is no history of trauma to his lower extremity. Prior similar symptoms: Yes Recent Illness/Hospitalization: Yes [facility] Medical History Cholecystitis, acute with cholelithiasis Type 2 diabetes mellitus Hyperlipidemia HTN (hypertension) Pulmonary hypertension Diverticulosis Insomnia Atrial fibrillation with RVR Histoplasmosis GERD (gastroesophageal reflux disease) History of skin cancer Solar keratosis Ulcer of right leg Burn scar Home Medications ?Medication ?Instructions ?Recorded ?Last Taken ?Type albuterol sulfate 90 mcg/actuation 1 puff PO Q6H shortness of breath 09/05/19 09/05/19 12:00 History breath activated powder inhaler apixaban 5 mg tablet 5 mg PO BID blood thinner #180 tabs 09/26/19 Unknown Rx Lactobacillus acidophilus 10 10,000 mmu cells PO DAILY 09/30/23 09/30/23 History billion cell capsule (Probiotic) supplement fluticasone fur. 200 mcg-umeclid 1 ea inhalation DAILY breathing 09/30/23 09/30/23 History 62.5 mcg-vilant 25 mcg inhalat.powder (Trelegy Ellipta) hydralazine 25 mg tablet 25 mg PO Q8H blood pressure 10/26/24 Unknown History metformin 500 mg tablet 500 mg PO BID diabetes 10/26/24 Unknown History rosuvastatin 20 mg tablet 20 mg PO DAILY 10/26/24 Unknown History melatonin 10 mg disintegrating 10 mg PO QHS sleep #0 tabs 11/04/24 Unknown Rx tablet amiodarone 200 mg tablet 200 mg PO DAILY 30 days #30 tabs 11/16/24 Unknown Rx famotidine 20 mg tablet 40 mg (2 x 20 mg) PO DAILY 30 days 11/16/24 Unknown Rx #60 tabs potassium chloride 20 mEq 20 meq PO DAILYCM 30 days #30 tabs 11/16/24 Unknown Rx tablet,extended release(part/cryst) tamsulosin 0.4 mg capsule 0.4 mg PO DAILY@1730 30 days #30 11/16/24 Unknown Rx caps doxycycline monohydrate 100 mg 100 mg PO BID #14 CAPSULES 12/16/24 Unknown Rx capsule furosemide 20 mg tablet 20 mg PO DAILY PRN swelling 12/16/24 Unknown History furosemide 20 mg tablet (Lasix) 20 mg PO DAILY #30 tabs 12/16/24 Unknown Rx multivitamin (Daily Value tablet) 1 tab PO DAILY 12/16/24 Unknown History sennosides 8.6 mg-docusate sodium 1 tab-cap PO BID 12/16/24 Unknown History 50 mg tablet (2-in-1 Laxative) Allergy/AdvReac Type Severity Reaction Status Date / Time No Known Allergies Allergy Verified 12/16/24 11:43 Family History Mother Breast cancer Father Colon cancer Melanoma Brother COPD (chronic obstructive pulmonary disease) Grandfather Multiple myeloma Surgical History History of left hip replacement History of arthroscopic knee surgery History of skin graft History of transurethral resection of prostate History of right hip replacement History of rotator cuff surgery History of tonsillectomy and adenoidectomy Social History household members: spouse Smoking Status: Former smoker how long ago did patient quit smokin years ago alcohol intake: current alcohol intake frequency: a few times a week Alcohol type: wine substance use type: does not use caffeine: No ROS ROS ED Constitutional Constitutional ED: Denies chills, fever(s) or subjective Eyes Eyes: Denies blurry vision or change in vision ENT ENT ED: Denies ear pain or rhinorrhea Cardiovascular Cardiovascular: Reports orthopnea; Denies chest pain, palpitations, paroxysmal nocturnal dyspnea or racing heartbeat Respiratory/Chest Respiratory/Chest: Reports cough, dyspnea, dyspnea on exertion and orthopnea; Denies paroxysmal nocturnal dyspnea or sputum Gastrointestinal Gastrointestinal: Denies abdominal pain, melena, nausea or vomiting Musculoskeletal Musculoskeletal: Denies arthralgias or myalgias Integumentary Reports rash and other Details: The right leg from the ankle to the knee is erythematous and warm. He has had prior injury to that leg which makes exam more difficult. There is bruising in the popliteal fossa. There is bruising distal medial right thigh. There is warmth to the leg. There is no lymphangitis. There is no inguinal lymphadenopathy. Neurologic Neurologic: Reports weakness; Denies headache(s) or paresthesias Endocrine Endocrinology: Denies cold intolerance or heat intolerance Hematologic/Lymphatic Hematologic/Lymphatic: Reports easy bleeding and easy bruising EXAM Physical Exam Const Vital Signs: 12/16/24 11:42 12/16/24 13:45 12/16/24 15:34 Temperature 98 F 98.4 F Temperature Source Temporal Pulse Rate 109 H 111 H 104 H Respiratory Rate 20 H 18 16 Blood Pressure 152/98 H 137/90 H 137/90 H Blood Pressure Mean 116 105 105 Pulse Ox 98 96 100 Oxygen Delivery Method Room Air Positive well nourished and well developed General Appearance ED: well developed and pallor HEENT Reports moist mucous membranes HEENT Narrative: Head is atraumatic and normocephalic. Ears normal. Posterior pharynx is normal. Eyes PERRL and EOMs intact bilaterally General Eye ED: Yes pale conjunctiva; Negative for scleral icterus Neck no lymphadenopathy, supple and no JVD Chest Wall inspection of chest normal and palpation of chest normal Resp normal respiratory effort and No clear to auscultation bilaterally Resp Narrative: He has rales and rhonchi noted throughout. There is no use of accessory muscles or retractions. Cardio no murmurs Rate: tachycardic Rhythm: abnormal rhythm irregularly irregular GI normal to inspection, nondistended, normoactive bowel sounds, non-tender, non-distended and no masses; Negative for hepatosplenomegaly GI Narrative: There is a Ravinder-Quevedo drain noted. He had this placed after cholecystectomy. Inspection: abdominal distention Extremity Negative for normal to inspection Extremity Narrative: He has lymphedema bilaterally worse right than left. The right leg is erythematous warm and tender. There is no lymphangitis. There is no popliteal or inguinal lymphadenopathy. Bruising noted as described under the extremity portion of the review of systems. Neuro oriented x3 and CN's II-XII intact bilaterally Sensorium / Orientation: alert Psych Attitude: agitated Skin no wounds and skin turgor normal General Skin Exam: pallor; Negative for jaundice MDM MDM MDM Narrative Medical decision making narrative: Clinically patient probably has cellulitis of the leg. There is also bruising. Lab Data Attestation: I reviewed the patient's lab results. Lab results narrative: Patient has renal insufficiency. GFR is 40. Patient does have evidence of mild failure. This is in all likely due to noncompliance with his medication. He also has A-fib with RVR again due to noncompliance CBC reveals mild anemia. Indices are normal. White count is normal. Labs: Laboratory Results - last 24 hr 12/16/24 12:20 WBC 10.3 RBC 3.67 L Hgb 10.8 L Hct 32.8 L MCV 89.4 MCH 29.4 MCHC 32.9 RDW Std Deviation 49.7 H RDW Coeff of Pollo 15.4 H Plt Count 289 MPV 9.3 Immature Gran % (Auto) 1.300 H Neut % (Auto) 71.7 H Lymph % (Auto) 12.6 L Petroleum % (Auto) 11.2 H Eos % (Auto) 2.3 Baso % (Auto) 0.9 Absolute Neuts (auto) 7.4 Absolute Lymphs (auto) 1.30 Nucleated RBC % 0 Sodium 136 Potassium 4.8 Chloride 102 Carbon Dioxide 22.8 Anion Gap 11 BUN 24 H Creatinine 1.63 H Estim Creat Clear Calc 34.38 L Est GFR (MDRD) Non-Af 40 L BUN/Creatinine Ratio 14.9 Glucose 110 H Lactic Acid 1.9 Calcium 10.0 Total Bilirubin 0.87 AST 28 ALT 15 Alkaline Phosphatase 120 NT pro BNP II 1900 H Total Protein 6.8 Albumin 3.6 Globulin 3.2 Albumin/Globulin Ratio 1.1 Radiography Chest X-Ray - ED: 2 View and Read by ED Physician (Increased interstitial markings right. Patient film is slightly rotated. There is no effusion or obvious infiltrate noted on lateral. Cardiac silhouette and size is normal. Osseous structures reveal chronic changes.) Diagnostic Testing: Clinical Impression(s) from Imaging Studies Chest X-Ray 12/16/24 12:25 IMPRESSION: Negative for acute cardiopulmonary disease. Pigtail catheter right upper quadrant with mildly elevated right hemidiaphragm. Reading Location: [facility] EKG Initial EKG: Attestation: I personally reviewed and interpreted this EKG as follows: Interpretation: Atrial Fibrillation (Rate is 102. QRS duration 102 6 ms. QT duration 93 ms. [place] is normal. He has evidence of a right bundle branch block.) Discharge Plan Triage Chief Complaint: Lower Extremity Injury ED Provider: Sukhdev Mark Dx/Rx/DC Orders Clinical Impression: Cellulitis of right lower extremity from knee to ankle, Lymphedema of both lower extremities, Noncompliance with medications, Chronic a-fib, Essential hypertension, Anticoagulant long-term use, Type 2 diabetes mellitus treated without insulin, Chronic kidney disease (CKD) stage G3b/A3, moderately decreased glomerular filtration rate (GFR) between 30-44 mL/min/1.73 square meter and albuminuria creatinine ratio greater than 300 mg/g Instructions: ED Cellulitis, ED Lymphedema Prescriptions: New doxycycline monohydrate 100 mg capsule 100 mg PO BID Qty: 14 0RF furosemide [Lasix] 20 mg tablet 20 mg PO DAILY Qty: 30 0RF No Action apixaban 5 mg tablet 5 mg PO BID Qty: 180 3RF albuterol sulfate 90 mcg/actuation aerosol powdr breath activated 1 puff PO Q6H Patient Comments: INHALE 1 PUFF BY MOUTH 4 TIMES DAILY NEEDED amiodarone 200 mg Tablet 200 mg PO DAILY 30 Days Qty: 30 0RF potassium chloride 20 mEq Tablet,Er Particles/Crystals 20 meq PO DAILYCM 30 Days Qty: 30 0RF famotidine 20 mg Tablet 40 mg PO DAILY 30 Days Qty: 60 0RF tamsulosin 0.4 mg Capsule 0.4 mg PO DAILY@1730 30 Days Qty: 30 0RF Trelegy Ellipta 200-62.5-25 mcg blister with device 1 ea inhalation DAILY Probiotic 10 billion cell capsule 10,000 mmu cells PO DAILY rosuvastatin 20 mg tablet 20 mg PO DAILY metformin 500 mg tablet 500 mg PO BID hydralazine 25 mg tablet 25 mg PO Q8H melatonin 10 mg Tablet,Disintegrating 10 mg PO QHS Qty: 0 0RF multivitamin [Daily Value] Tablet 1 tab PO DAILY sennosides-docusate sodium [2-in-1 Laxative] 8.6-50 mg tablet 1 tab-cap PO BID furosemide 20 mg tablet 20 mg PO DAILY PRN (Reason: swelling) Patient Comments: take as needed for swelling , or weight gain of 3 pounds in one day Primary Care Provider: Dipak Aguilar Referrals: Dipak Aguilar DO [Primary Care Provider, Medical] - 2 Days for wound check Karlos Bella MD [Med Staff - Active Staff, Cardiology] - 1-2 Weeks Print Language: [place] Citizen Disposition Disposition: Home, Self Care Discharge Date/Time: 12/16/24 15:45
[2024-12-16 12:49] LABS: AST(SGOT) 28 U/L (<=37); Alanine Aminotransfer ALT/SGPT 15 U/L (<=46); Albumin, Serum 3.6 g/dL (3.4-4.8); Alkaline Phosphatase 120 U/L (40-129); Anion Gap 11 (5-15); BUN 24 mg/dL (4-19); BUN/Creat Ratio 14.9 RATIO (10-20); Calcium,Total 10.0 mg/dL (7.6-11.0); Carbon Dioxide 22.8 mmol/L (21.0-32.0); Chloride 102 mmol/L (98-108); Estimated Creatinine Clearance 34.38 ml/min (50-250); Globulin 3.2 g/dL (2.2-4.2); Glucose 110 mg/dL (70-99); Potassium 4.8 mmol/L (3.3-5.1); Pro- Brain NATRIURETIC PEPTIDE 1900 pg/mL (<=1800)
[2024-12-16 13:45] VITALS: BP 137/90; PULSE 111; RESP 18; O2SAT 96
[2024-12-16 15:34] VITALS: BP 137/90; PULSE 104; RESP 16; TEMP 36.9; O2SAT 100
== END 2024-12-16 15:45 | disposition home or self-care (01) ==
PROVIDERS: Emergency Provider Emergency Medicine; PCP Student in an Organized Health Care Education/Training Program; Visit Provider Emergency Medicine
DX: L03.115 Cellulitis of right lower limb (principal); I48.20 Chronic atrial fibrillation, unspecified; E11.22 Type 2 diabetes mellitus with diabetic chronic kidney disease; Z79.4 Long term (current) use of insulin; N18.32 Chronic kidney disease, stage 3b; Z87.891 Personal history of nicotine dependence; Z79.899 Other long term (current) drug therapy; Z79.01 Long term (current) use of anticoagulants; Z91.148 Patient's other noncompliance with medication regimen for other reason; E78.5 Hyperlipidemia, unspecified; I12.9 Hypertensive chronic kidney disease with stage 1 through stage 4 chronic kidney disease, or unspecified chronic kidney disease; I89.0 Lymphedema, not elsewhere classified; R06.02 Shortness of breath; Z79.84 Long term (current) use of oral hypoglycemic drugs; Z96.643 Presence of artificial hip joint, bilateral
CPT/HCPCS: 71046; 80053; 83605; 83880; 85025; 93005; 99284